=== PATIENT | female | born 1945 | race Caucasian/White ===

== ENCOUNTER 2017-09-03 11:12 | Inpatient (IN) | payer MEDICARE, OTHER, SELFPAY ==
[2017-09-03] VITALS (14 sets, daily range): BP systolic 112–158; BP diastolic 56–86; PULSE 78–101; RESP 15–27; TEMP 37.5–39.1; O2SAT 91–98; BMI 32.9; BMI 33.1
--- NOTE | 2017-09-03 11:40 | EKG12_ITS ---
Test Reason : SOB Blood Pressure : / mmHG Vent. Rate : 096 BPM Atrial Rate : 096 BPM P-R Int : 120 ms QRS Dur : 082 ms QT Int : 348 ms P-R-T Axes : 008 027 057 degrees QTc Int : 439 ms Normal sinus rhythm Normal ECG Confirmed by LATOYA MAC, IRIS ([id number]), publication editor GRISELDA SMALLS ([id number]) on 09/04/2017 9:52:58 AM Referred By: SOTERO Confirmed By:IRIS KLEIN MD
--- NOTE | 2017-09-03 11:42 | ED.VISSUMM ---
- ER Visit Summary Date of Service: 09/03/17 Chief Complaint: [Fever] History of Present Illness: The patient is a 71 F [who presents the emergency department with chronic cough. It has been worse over the last 2 weeks. Yesterday she developed fever. She is nauseated. She has body aches. She has a mild sore throat. Her cough is productive of brown sputum. 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.] Physical Examination: [] Temperature 102.5 heart rate 102 WN WD NAD PERRL EOMI Dry mucous membranes, TMs are clear, posterior oropharynx is normal NECK supple and nontender, no masses Irregular tachycardic rhythm with a midsystolic click no murmur rub or gallop, no peripheral edema, symmetric radial pulses End expiratory wheezing ABDOMEN is soft and nontender, normal bowel sounds, no distension, no rebound or guarding SKIN is warm and dry no rashes Alert and Oriented x3, CN II-XII in tact, no motor or sensory deficits, gait normal diffusely weak No lymphadenopathy Test Results: [] Emergency Department Course and Treatment: [Patient was given Tylenol Zofran. She is given fluids. EKG shows no acute ischemic changes. She does have a leukocytosis. Potassium was mildly depressed at 3.3. Chest x-ray shows left lower lobe pneumonia. This is community-acquired. Blood cultures were drawn. Lactic acid was normal. Patient was given ceftriaxone and azithromycin. She remained stable on 2 L nasal cannula with a pulse ox of 93-95% in the emergency department. She was 88-89% on room air. She was given albuterol for wheezing. She will be admitted to the hospital.] Treatment Plan: [] Disposition: [Admit] Impression: [1. Community-acquired pneumonia 2. Sepsis] This note was generated with [employer] software. It may contain incorrect words, spelling, and punctuation that were not noted in review of the chart prior to signing ED Disposition - Plan for ED Patient: Chief Complaint: Fever Referrals: Harley Cornejo MD [Primary Care Provider] -
[2017-09-03] MEDS: Albuterol 2.5 MG/3 ML VIAL.NEB. INHALATION ×2 (11:50→18:31)
[2017-09-03] MEDS: Ondansetron 4 MG/2 ML Vial IV (11:56)
[2017-09-03] MEDS: 0.9% Normal Saline 1,000 ML 150 ML IV (11:57)
[2017-09-03] MEDS: Acetaminophen 500 MG Tablet 1000 MG PO (11:57)
[2017-09-03 12:09] LABS: Absolute Lymphocyte Count 0.55 X10^3/ul (0.83-4.51); Absolute Neutrophil Count 11.6 X10^3/uL (2.0-7.7); Basophil# 0.02 X10^3/uL; Basophil% 0.2 % (0-1); Differential Indicated SCAN CRITERIA MET; Eosinophil# 0.01 X10^3/uL; Eosinophils% 0.1 % (0-5); Hematocrit 40.8 % (37-47); Hemoglobin 12.5 g/dl (12.0-15.0); Lymphocyte # 0.55 X10^3/ul (4.0); Lymphocyte % 4.3 % (19-41); Mean Corp Hgb Conc 30.6 g/gl (32-36); Mean Platelet Vol. 10.5 fl (6.2-12.0); Monocyte# 0.68 X10^3/uL; Monocyte% 5.3 % (0-10); Neutrophil # 11.55 X10^3/uL (2.7-7.7); Neutrophil % 89.9 % (47-70); POSITIVE COUNT NO; POSITIVE DIFFERENTIAL YES; POSITIVE MORPHOLOGY NO; Platelet Count 271 K/mm3 (150-450); RBC Distribution Width CV 14.7 % (11.6-14.6); RBC Distribution Width SD 45.6 fl (35.1-43.9); White Blood Count 12.8 K/mm3 (4.4-11.0)
[2017-09-03 12:17] LABS: International Normalized Ratio 2.7; Prothrombin Time (Protime)PT. 27.6 SECONDS (11.7-14.9)
[2017-09-03 12:19] LABS: Partial Thromboplast Time 65.1 Seconds (24.1-36.2)
[2017-09-03 12:25] LABS: ALB/GLOB Ratio 0.8 RATIO (0.9-2.4); AST(SGOT) 16 U/L (15-37); Alanine Aminotransfer ALT/SGPT 20 U/L (13-56); Albumin, Serum 3.1 g/dL (3.2-5.0); Alkaline Phosphatase 83 U/L (45-117); Anion Gap 7 (5-15); BUN 15 mg/dL (7-18); BUN/Creat Ratio 16.4 RATIO (10-20); Calcium,Total 8.8 mg/dL (8.5-10.1); Chloride 106 mmol/L (98-107); Creatinine, Serum 0.91 mg/dL (0.55-1.02); EST Glomerular Filtration Rate 64 mL/min (>60); Est Glom Filt Rate - Afr Amer 78 mL/min (>60); Globulin 3.8 g/dL (2.2-4.2); Glucose 106 mg/dL (74-106); Lactic Acid 1.1 mmol/L (0.4-2.0); Potassium 3.3 mmol/L (3.5-5.1); Protein, Total 6.9 g/dL (6.4-8.2); Sodium Level 141 mmol/L (136-145)
--- NOTE | 2017-09-03 12:46 | RAD_ITS ---
STUDY: X-RAY CHEST REASON FOR EXAM: Female, 71 years old. Cough and fever. TECHNIQUE: PA and lateral views of the chest. COMPARISON: Comparison is made with prior study dated January 11, 2018. FINDINGS: EKG electrodes are seen. Persistent elevation of the right hemidiaphragm. Increased markings are now seen in the left lower lobe suggestive of left lower lobe atelectasis and/or infiltrate. There is no demonstrated pleural abnormality. Sternal cerclage wires are present from a prior sternotomy. The patient is status post aortic valve replacement. Normal mediastinum and chica. Normal visualized pulmonary arteries. Normal visualized aortic arch and descending thoracic aorta. There is demineralization of the osseous structures. Dextroscoliosis. Normal visualized ribs, clavicles, and shoulders. There is no demonstrated abnormality of the visualized soft tissue structures of the upper abdomen. RAD/Chest PA and Lateral IMPRESSION: 5 suggestive of infiltrate in the left lower lobe. Electronically Signed: Jesse Abernathy MD at 13:26 EST Tel [phone], Service support ,
--- NOTE | 2017-09-03 14:34 | PCM.HP.STD ---
Problem List (1) History of back surgery Status: Chronic (2) S/P foot surgery Status: Chronic (3) S/P hysterectomy Status: Chronic (4) S/P sinus surgery Status: Chronic Comment: x4 (5) Aortic stenosis Status: Chronic Comment: Moderate to severe on echocardiogram June 2013, follows with Dr. Mckay (6) Asthma Status: Chronic Comment: PFTs in June 2013 show a mild degree of obstruction non-reactive to bronchodilators (7) CHF (congestive heart failure) Status: Chronic Comment: Diastolic with ejection fraction 65%, June 2013 Status post cardiac catheterization October 2012 showing angiographically normal coronary arteries (8) Chronic sinusitis Status: Chronic Comment: With history of Pseudomonas and MRSA infection; following up with Dr. 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 The patient is a 71 year old F who presents to the emergency room with productive cough of yellow/brown sputum, fever, weakness, shortness of breath, muscle aches. Patient states she has a chronic cough but her cough the past week or more has been different. She states her cough has increased in severity and is normally nonproductive. She follows with Dr. Gutierrez, manager diesel for mild asthma. She states she normally rarely uses her albuterol inhaler but has been using it approximately 3 times a day during the past week. She complains of associated nausea this morning. Otherwise denies GI/ complaints. Denies difficulty swallowing. Denies recent exposure to illness. She has a past medical history of hypertension, hyperlipidemia, chronic diastolic CHF, history of aortic valve replacement with mechanical valve, mild asthma, chronic sinusitis status post sinus surgery ?4, obesity, depression, GERD. Past Medical History Past Medical History (Chronic Problems): Chronic Problems S/P foot surgery (Chronic) S/P hysterectomy (Chronic) S/P sinus surgery (Chronic) x4 History of back surgery (Chronic) Hypertension (Chronic) Hyperlipidemia (Chronic) Depression (Chronic) Hiatal hernia (Chronic) Obesity (Chronic) CHF (congestive heart failure) (Chronic) Diastolic with ejection fraction 65%, June 2013 Status post cardiac catheterization October 2012 showing angiographically normal coronary arteries Aortic stenosis (Chronic) Moderate to severe on echocardiogram June 2013, follows with Dr. Mckay Asthma (Chronic) PFTs in June 2013 show a mild degree of obstruction non-reactive to bronchodilators Chronic sinusitis (Chronic) With history of Pseudomonas and MRSA infection; following up with Dr. 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) Allergies Sulfa (Sulfonamide Antibiotics) Allergy (Verified 09/03/17 11:15) Swelling adhesive Adverse Reaction (Verified 09/03/17 11:15) blisters BLISTERS codeine Adverse Reaction (Verified 09/03/17 11:15) Itching levofloxacin [From Levaquin] Adverse Reaction (Verified 09/03/17 11:15) pain in legs and swelling PAIN IN LEG AND SWELLING lisinopril Adverse Reaction (Verified 09/03/17 11:15) cough oxycodone [Oxycodone] Adverse Reaction (Verified 09/03/17 11:15) Itching oxycodone HCl [From Percocet] Adverse Reaction (Verified 09/03/17 11:15) Itching AND MAKES HEAD FEEL FUNNY Penicillins Adverse Reaction (Verified 09/03/17 11:15) heart palpitations HEART PALPITATIONS prochlorperazine edisylate [From Compazine] Adverse Reaction (Verified 09/03/17 11:15) Low blood pressure prochlorperazine maleate [From Compazine] Adverse Reaction (Verified 09/03/17 11:15) Low blood pressure tramadol HCl [From Ultram] Adverse Reaction (Verified 09/03/17 11:15) Itching Home Medications: Ambulatory Orders Medication Instructions Recorded Acetaminophen [Tylenol] 500 mg PO Q4H PRN PRN 01/14/15 Albuterol Inhaler [Ventolin Hfa] 2 puff INHALATION Q6H PRN PRN 01/14/15 Aspirin [Aspirin, Baby] 162 mg PO DAILY@0800 01/14/15 Ezetimibe [Zetia] 10 mg PO QHS 01/14/15 Lorazepam [Ativan] 0.5 mg PO BID 01/14/15 Pantoprazole Sodium [Protonix] 40 mg PO BID 01/14/15 Paroxetine HCl 20 mg PO BID 01/14/15 Pravastatin [Pravachol] 80 mg PO QHS 01/14/15 BuPROPion (XL) [Wellbutrin Xl] 150 mg PO DAILY 11/15/15 Warfarin [Coumadin] 5 mg PO DAILY 11/15/15 Azelastine HCl [Astelin] 1 spray NASAL BID 05/03/17 Cyclobenzaprine [Flexeril] 10 mg PO BID PRN PRN 05/03/17 Ferrous Sulfate [Iron] 325 mg PO DAILY 05/03/17 Fluticasone/Vilanterol [Breo 1 ea IH DAILY 05/03/17 Ellipta 200-25 Mcg INH] Furosemide [Lasix] 40 mg PO BID 05/03/17 Montelukast [Singulair] 10 mg PO DAILY 05/03/17 Potassium Chloride [K-Dur] 20 meq PO DAILY 05/03/17 Metoprolol(XL)Succ [Toprol Xl 50 mg PO QHS 09/03/17 (Beta Sandra)] Triamcinolone 0.1% Cream [Kenalog] 1 applic TOPICAL BID 09/03/17 Surgical History: hysterectomy, - - 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 Denies: Abdominal Pain, Constipation, Diarrhea, Vomiting Genitourinary: Denies: Dysuria Musculoskeletal: Denies: Joint Pain, Joint Tenderness Skin: Denies: Rash, Wounds Neurological: Denies: Numbness, Tingling, Focal weakness Psychiatric: Denies: Anxiety, Depression, Homicidal Ideations, Suicidal Ideations Hematologic/ Lymphatic: Denies: Easy Bruising, Easy Bleeding VTE Information - Inpt Only VTE Present on Admission: No VTE Mechan Device Prophylaxis: None VTE Pharm Prophylaxis ordered?: Yes - Physical Exam General: Alert, Oriented x3, Cooperative, No apparent distress HEENT: Atraumatic, PERRLA, EOMI, Normocephalic Oral: Dry Mucosa Neck: Supple, No JVD, Negative Carotid Bruits Lungs: Diminished, Rales - Left base, Wheezes Cardiovascular: Normal S1, Normal S2, Murmur, - - Irregular rhythm Abdomen: Bowel Sounds Present, Soft, Non Tender, Non-Distended, Obese Extremities: No clubbing, No cyanosis, No edema, Capillary Refill Less than 3 Seconds Skin: No rashes, No breakdown Musculoskeletal: No Tenderness to Palpation of Joints or Extremities Neurological: Cranial nerves II-XII grossly intact, Neuro grossly intact Psych/Mental Status: Normal Affect, Appropriate Vital Signs Temp Pulse Resp BP Pulse Ox 99.6 F H 82 18 112/86 H 94 09/03/17 13:45 09/03/17 14:19 09/03/17 14:19 09/03/17 14:19 09/03/17 14:19 Oxygen Flow Rate 2 Oxygen Delivery Method Nasal Cannula Weight: 81.647 kg Body Mass Index (BMI) 32.9 Finger Stick Blood Glucose 93 Microbiology Past 72 Hours 09/03/17 11:50 Influenza Types A,B Direct FA (SETH) - Final Mucosa - Nose Laboratory Tests Past 24 Hrs 09/03/17 09/03/17 09/03/17 11:50 11:50 11:50 WBC 12.8 H RBC 4.80 Hgb 12.5 Hct 40.8 MCV 85.0 MCH 26.0 L MCHC 30.6 L RDW 14.7 H RDW Differential 45.6 H Plt Count 271 MPV 10.5 Immature Gran % (Auto) 0.200 Neut % (Auto) 89.9 H Lymph % (Auto) 4.3 L [place] % (Auto) 5.3 Eos % (Auto) 0.1 Baso % (Auto) 0.2 Absolute Neuts (auto) 11.6 H Absolute Lymphs (auto) 0.55 L Total Counted Not Reportable Differential Comment COMMENT PT 27.6 H INR 2.7 APTT 65.1 H Sodium 141 Potassium 3.3 L Chloride 106 Carbon Dioxide 28.0 Anion Gap 7 BUN 15 Creatinine 0.91 Estim Creat Clear Calc 44.20 Est GFR (MDRD) Af Amer 78 Est GFR (MDRD) Non-Af 64 BUN/Creatinine Ratio 16.4 Glucose 106 Lactic Acid Calcium 8.8 Total Bilirubin 0.60 AST 16 ALT 20 Alkaline Phosphatase 83 Total Protein 6.9 Albumin 3.1 L Globulin 3.8 Albumin/Globulin Ratio 0.8 L 09/03/17 11:50 WBC RBC Hgb Hct MCV MCH MCHC RDW RDW Differential Plt Count MPV Immature Gran % (Auto) Neut % (Auto) Lymph % (Auto) [place] % (Auto) Eos % (Auto) Baso % (Auto) Absolute Neuts (auto) Absolute Lymphs (auto) Total Counted Differential Comment PT INR APTT Sodium Potassium Chloride Carbon Dioxide Anion Gap BUN Creatinine Estim Creat Clear Calc Est GFR (MDRD) Af Amer Est GFR (MDRD) Non-Af BUN/Creatinine Ratio Glucose Lactic Acid 1.1 Calcium Total Bilirubin AST ALT Alkaline Phosphatase Total Protein Albumin Globulin Albumin/Globulin Ratio Assessment/Plan 1. Acute community-acquired left lower lobe pneumonia with associated acute hypoxia-chest x-ray shows left lower lobe infiltrate. Patient presents with cough, fever, shortness of breath. Albuterol and DuoNeb aerosols. Continue IV azithromycin and IV Rocephin which was started in the ER. Mucinex twice daily. Tylenol as needed for fever. Encourage IS. Urine for strep and Legionella. Send sputum for culture. Blood cultures drawn in ER, pending. Negative for influenza. Continue supplemental oxygen to maintain O2 at or above 90%. Lactic acid 1.1. Does not meet sepsis criteria. Temp 102.3 on admission. Repeat chest x-ray in a.m. 2. Hypertension-stable, continue home regimen of Lasix and metoprolol. 3. Hyperlipidemia-continue Zetia, pravastatin. 4. Chronic diastolic CHF-aortic stenosis, history of aortic valve replacement with mechanical valve. Most recent echocardiogram 01/21/2015 showed an estimated ejection fraction of 60%, stable appearing mechanical aortic valve prosthesis, RVSP 29 mmHg, mild to moderate left ventricular hypertrophy. Continue home Lasix and coumadin regimen. 5. Mild asthma-no acute exacerbation. Continue albuterol aerosol PRN. 6. Chronic sinusitis-history of Pseudomonas and MRSA infection, previously followed with Dr. Lopez, [place]. S/P sinus surgery X4. 7. Obesity-encouraged diet and lifestyle modifications. 8. Depression-continue bupropion, fluoxetine. 9. History of rectal bleeding, anemia-EGD/colonoscopy 05/07/2017 showed hiatal hernia, cecal polyps, no source of anemia. Continue iron supplementation. 10. GERD- continue PPI. DVT prophylaxis-Coumadin, INR therapeutic. This patient was seen by CAHRLENE Bishop under the supervision of Dr. Mcdaniel.
[2017-09-03 16:44] LABS: Bacteria 0 SEEN /hpf (None Seen); Mucous, Urine 0 SEEN /hpf (<or=2+)
[2017-09-03 17:04] LABS: Color, Urine Yellow (Yellow); Glucose, Dipstick Normal (Normal); Ketone-Dipstick Negative (Negative); Leukocyte Esterase-Dipstick 500 /ul (Negative); Nitrite-Dipstick Negative (Negative); Occult Blood-Urine 150 /ul (Negative); Protein-Dipstick 15 mg/dl (Negative); Specific Gravity, Urine 1.015 (1.002-1.030); Urine Bilirubin Dipstick Negative (Negative); Urine Clarity Clear (Clear); Urine Urobilinogen Normal (Normal)
[2017-09-03 17:13] LABS: White Blood Cells 5-10 SEEN /hpf (0-5)
[2017-09-03 17:14] LABS: Red Blood Cells-Urine 0-5 SEEN /hpf (0-5); Squamous Epithelial Cells - UA 0 SEEN /hpf (5-10)
[2017-09-03] MEDS: Furosemide 40 MG Tablet PO (20:37)
[2017-09-03] MEDS: Pravastatin 80 MG Tablet PO (22:20)
[2017-09-03] MEDS: LORazepam 0.5 MG Tablet PO (22:20)
[2017-09-03] MEDS: Ezetimibe 10 MG Tablet PO (22:20)
[2017-09-03] MEDS: Pantoprazole Sodium 40 MG Tablet PO (22:20)
[2017-09-03] MEDS: Metoprolol(XL)Succ 50 MG Tablet PO (22:20)
[2017-09-04] VITALS (12 sets, daily range): BP systolic 107–118; BP diastolic 49–65; PULSE 75–89; RESP 18–20; TEMP 36.6–37.4; O2SAT 91–98
[2017-09-04] MEDS: Albuterol 2.5 MG/3 ML VIAL.NEB. INHALATION ×3 (00:51→13:23)
--- NOTE | 2017-09-04 05:59 | RAD_ITS ---
STUDY: X-RAY CHEST REASON FOR EXAM: Female, 71 years old. Shortness of breath. TECHNIQUE: PA and lateral chest. COMPARISON: September 03, 2015. CT chest May 15, 2016. FINDINGS: Airspace opacity left mid and left lower lung unchanged. Mildly elevated right hemidiaphragm. Normal size heart. Normal mediastinum and chica. Normal visualized pulmonary arteries. Atherosclerotic calcification of the aortic arch. Osseous structures unchanged. Sternal wires are present. There is no demonstrated abnormality of the visualized soft tissue structures of the upper abdomen. RAD/Chest PA and Lateral IMPRESSION: No change in left lower lobe pneumonia versus subsegmental atelectasis. Elevation of the right hemidiaphragm unchanged. Electronically Signed: Jean Castro MD at 6:21 EST , Service support ,
[2017-09-04] MEDS: Aspirin 81 MG TAB.CHEW 162 MG PO (08:55)
[2017-09-04] MEDS: Ferrous Sulfate 325 MG Tablet PO (08:55)
[2017-09-04] MEDS: 0.9% NaCl Peripheral Flush Adult/Peds IV (08:55)
[2017-09-04 08:56] LABS: Absolute Lymphocyte Count 0.81 X10^3/ul (0.83-4.51); Absolute Neutrophil Count 8.2 X10^3/uL (2.0-7.7); Basophil# 0.02 X10^3/uL; Basophil% 0.2 % (0-1); Eosinophil# 0.02 X10^3/uL; Eosinophils% 0.2 % (0-5); Hematocrit 37.9 % (37-47); Lymphocyte # 0.81 X10^3/ul (4.0); Lymphocyte % 8.6 % (19-41); Mean Corp Hgb Conc 31.7 g/gl (32-36); Mean Corpuscular Volume 85.2 fL (81-99); Mean Platelet Vol. 10.2 fl (6.2-12.0); Monocyte# 0.45 X10^3/uL; Monocyte% 4.8 % (0-10); Neutrophil # 8.16 X10^3/uL (2.7-7.7); Neutrophil % 86.1 % (47-70); Platelet Count 239 K/mm3 (150-450); RBC Distribution Width CV 14.8 % (11.6-14.6); RBC Distribution Width SD 45.4 fl (35.1-43.9); Red Blood Count 4.45 M/mm3 (4.2-5.4); White Blood Count 9.5 K/mm3 (4.4-11.0)
[2017-09-04] MEDS: Furosemide 40 MG Tablet PO ×2 (08:56→17:45)
[2017-09-04] MEDS: Pantoprazole Sodium 40 MG Tablet PO ×2 (08:58→22:25)
[2017-09-04] MEDS: Montelukast 10 MG Tablet PO (08:59)
[2017-09-04 09:03] LABS: POSITIVE COUNT NO; POSITIVE DIFFERENTIAL NO; POSITIVE MORPHOLOGY NO
[2017-09-04] MEDS: LORazepam 0.5 MG Tablet PO ×2 (09:04→22:25)
[2017-09-04 09:13] LABS: Anion Gap 7 (5-15); BUN 12 mg/dL (7-18); BUN/Creat Ratio 12.8 RATIO (10-20); Calcium,Total 8.6 mg/dL (8.5-10.1); Chloride 105 mmol/L (98-107); Creatinine, Serum 0.94 mg/dL (0.55-1.02); EST Glomerular Filtration Rate 62 mL/min (>60); Est Glom Filt Rate - Afr Amer 75 mL/min (>60); Estimated Creatinine Clearance 40.82 ml/min; Glucose 189 mg/dL (74-106); Potassium 3.1 mmol/L (3.5-5.1); Sodium Level 140 mmol/L (136-145)
--- NOTE | 2017-09-04 09:55 | PCM.PROGNOTE ---
<Luisa Rothman - Last Filed: 09/04/17 10:04> Subjective: Patient seen and examined. States shortness of breath is slightly improved. Continues to have productive cough with yellow/brown sputum. Complains of fever, chills overnight. Denies nausea, vomiting. Denies other complaints. - Physical Exam General: Alert, Oriented x3, Cooperative, No apparent distress HEENT: Atraumatic, PERRLA, EOMI, Normocephalic Neck: Supple, No JVD, Negative Carotid Bruits Lungs: Diminished, Rhonchi, Wheezes Cardiovascular: Normal S1, Normal S2, Murmur Abdomen: Bowel Sounds Present, Soft, Non Tender, Non-Distended, Obese Extremities: No clubbing, No cyanosis, No edema, Capillary Refill Less than 3 Seconds Skin: No rashes, No breakdown Musculoskeletal: No Tenderness to Palpation of Joints or Extremities Neurological: Cranial nerves II-XII grossly intact, Neuro grossly intact Psych/Mental Status: Normal Affect, Appropriate Vital Signs Temp Pulse Resp BP Pulse Ox 98.2 F 76 20 H 118/56 L 91 09/04/17 07:26 09/04/17 07:26 09/04/17 07:26 09/04/17 07:26 09/04/17 07:26 Oxygen Flow Rate 2 Oxygen Delivery Method Room Air Weight: 81.647 kg Body Mass Index (BMI) 33.1 Intake and Output for Last 24 Hours 09/02/17 09/03/17 09/04/17 23:59 23:59 23:59 Intake Total 840 / 840 250 / 250 Output Total 930 / 930 Balance -90 / -90 250 / 250 Microbiology Past 72 Hours 09/03/17 16:40 Legionella Antigen - Final Urine, Clean Catch 09/03/17 16:40 Streptococcus pneumoniae Antigen (M - Final Urine, Clean Catch Laboratory Tests Past 24 Hrs 09/03/17 09/04/17 09/04/17 16:40 08:45 08:45 WBC 9.5 RBC 4.45 Hgb 12.0 Hct 37.9 MCV 85.2 MCH 27.0 MCHC 31.7 L RDW 14.8 H RDW Differential 45.4 H Plt Count 239 MPV 10.2 Immature Gran % (Auto) 0.100 Neut % (Auto) 86.1 H Lymph % (Auto) 8.6 L [place] % (Auto) 4.8 Eos % (Auto) 0.2 Baso % (Auto) 0.2 Absolute Neuts (auto) 8.2 H Absolute Lymphs (auto) 0.81 L Total Counted Not Reportable Sodium 140 Potassium 3.1 L Chloride 105 Carbon Dioxide 28.0 Anion Gap 7 BUN 12 Creatinine 0.94 Estim Creat Clear Calc 40.82 Est GFR (MDRD) Af Amer 75 Est GFR (MDRD) Non-Af 62 BUN/Creatinine Ratio 12.8 Glucose 189 H Calcium 8.6 Urine Color Yellow Urine Clarity Clear Urine pH 6.0 Ur Specific [place] 1.015 Urine Protein 15 H Urine Glucose (UA) Normal Urine Ketones Negative Urine Occult Blood 150 H Urine Nitrite Negative Urine Bilirubin Negative Urine Urobilinogen Normal Ur Leukocyte Esterase 500 H Urine RBC 0-5 SEEN Urine WBC 5-10 SEEN Ur Squamous Epith Cells 0 SEEN Urine Bacteria 0 SEEN Urine Mucus 0 SEEN Assessment/Plan Patient is a 71-year-old female admitted 09/03/17 due to cough, fever. She has a past medical history of hypertension, hyperlipidemia, chronic diastolic CHF, history of aortic valve replacement with mechanical valve, mild asthma, chronic sinusitis status post sinus surgery ?4, obesity, depression, GERD. 1. Acute community-acquired left lower lobe pneumonia with associated acute hypoxia-chest x-ray shows left lower lobe infiltrate. Patient presents with cough, fever, shortness of breath. Albuterol and DuoNeb aerosols. Continue IV azithromycin and IV Rocephin. Mucinex twice daily. Tylenol as needed for fever. Encourage IS. Urine for strep and Legionella negative. Sputum culture pending. Blood cultures drawn pending. Negative for influenza. Continue supplemental oxygen to maintain O2 at or above 90%. Lactic acid 1.1. Does not meet sepsis criteria. Fever improved overnight. Repeat chest x-ray this morning shows no change in left lower lobe pneumonia versus subsegmental atelectasis. 2. Hypertension-stable, continue home regimen of Lasix and metoprolol. 3. Hyperlipidemia-continue Zetia, pravastatin. 4. Chronic diastolic CHF-aortic stenosis, history of aortic valve replacement with mechanical valve. Most recent echocardiogram 01/21/2015 showed an estimated ejection fraction of 60%, stable appearing mechanical aortic valve prosthesis, RVSP 29 mmHg, mild to moderate left ventricular hypertrophy. Continue home Lasix and coumadin regimen. 5. Mild asthma-no acute exacerbation. Continue albuterol aerosol PRN. 6. Chronic sinusitis-history of Pseudomonas and MRSA infection, previously followed with Dr. White, [place]. S/P sinus surgery X4. 7. Obesity-encouraged diet and lifestyle modifications. 8. Depression-continue bupropion, fluoxetine. 9. History of rectal bleeding, anemia-EGD/colonoscopy 05/07/2017 showed hiatal hernia, cecal polyps, no source of anemia. Continue iron supplementation. 10. GERD- continue PPI. 11. Acute cystitis-UA positive. Urine culture pending. Continue IV Rocephin. DVT prophylaxis-Coumadin, INR therapeutic. This patient was seen by CHARLENE Bishop under the supervision of Dr. Rowley. <Linda Rowley - Last Filed: 09/04/17 14:37> - Physical Exam Vital Signs Temp Pulse Resp BP Pulse Ox 97.9 F 81 18 110/60 98 09/04/17 14:26 09/04/17 14:26 09/04/17 14:26 09/04/17 14:26 09/04/17 14:26 Oxygen Flow Rate 1 Oxygen Delivery Method Nasal Cannula Weight: 81.6 kg Body Mass Index (BMI) 33.1 Intake and Output for Last 24 Hours 09/02/17 09/03/17 09/04/17 23:59 23:59 23:59 Intake Total 840 / 840 1310 / 1310 Output Total 930 / 930 700 / 700 Balance -90 / -90 610 / 610 Microbiology Past 72 Hours 09/03/17 16:40 Legionella Antigen - Final Urine, Clean Catch 09/03/17 16:40 Streptococcus pneumoniae Antigen (M - Final Urine, Clean Catch Laboratory Tests Past 24 Hrs 09/03/17 09/04/17 09/04/17 16:40 08:45 08:45 WBC 9.5 RBC 4.45 Hgb 12.0 Hct 37.9 MCV 85.2 MCH 27.0 MCHC 31.7 L RDW 14.8 H RDW Differential 45.4 H Plt Count 239 MPV 10.2 Immature Gran % (Auto) 0.100 Neut % (Auto) 86.1 H Lymph % (Auto) 8.6 L [place] % (Auto) 4.8 Eos % (Auto) 0.2 Baso % (Auto) 0.2 Absolute Neuts (auto) 8.2 H Absolute Lymphs (auto) 0.81 L Total Counted Not Reportable Sodium 140 Potassium 3.1 L Chloride 105 Carbon Dioxide 28.0 Anion Gap 7 BUN 12 Creatinine 0.94 Estim Creat Clear Calc 40.82 Est GFR (MDRD) Af Amer 75 Est GFR (MDRD) Non-Af 62 BUN/Creatinine Ratio 12.8 Glucose 189 H Calcium 8.6 Urine Color Yellow Urine Clarity Clear Urine pH 6.0 Ur Specific [place] 1.015 Urine Protein 15 H Urine Glucose (UA) Normal Urine Ketones Negative Urine Occult Blood 150 H Urine Nitrite Negative Urine Bilirubin Negative Urine Urobilinogen Normal Ur Leukocyte Esterase 500 H Urine RBC 0-5 SEEN Urine WBC 5-10 SEEN Ur Squamous Epith Cells 0 SEEN Urine Bacteria 0 SEEN Urine Mucus 0 SEEN Assessment/Plan Patient was seen and examined independently. Interval history and exam as above. Admitted with CAP. Complains of cough and wheezes. Not on oxygen at home. Vitals reviewed, on 2L oxygen. Clinical exam positive for decreased air entry and generalised wheezes+++ Will continue on breathing treatments and IV antibiotics. Code Visit Inpatient E&M: [id number] Subs Hosp L2
[2017-09-04] MEDS: Ceftriaxone 1 GM/50 ML BAG IV (11:00)
[2017-09-04] MEDS: guaiFENesin 1,200 MG Tablet 1200 MG PO ×2 (13:02→22:25)
--- NOTE | 2017-09-04 14:47 | CHAPLAIN ---
Type of Pastoral Visit _x__ Initial Visit ___ Follow-up Visit ___ On-call Visit ___ General Patient Visit ___ Spiritual Assessment ___ Family Conference ___ Bereavement ___ Rapid Response ___ Code Blue ___ Other (describe below) Pastoral Care Referral From _x__ Patient ___ Family ___ Nurse ___ Physician ___ Group Therapist ___ Spray Applicator ___ Other (describe below) Sacrament/Intervention ___ Active listening ___ Anointing ___ Amish ___ Bereavement ___ Communion ___ Bhavya exploration ___ ___ Life review _x__ Prayer ___ Reconciliation ___ Sacrament of Sick _x__ Supportive presence ___ Wedding ___ Other (describe below) Pastoral Comments
[2017-09-04] MEDS: Ipratropium/Albuterol Sulfate 3 ML AMPUL.NEB INHALATION (20:00)
[2017-09-04] MEDS: Acetaminophen 325 MG Tablet 650 MG PO (20:22)
[2017-09-04] MEDS: Metoprolol(XL)Succ 50 MG Tablet PO (22:25)
[2017-09-04] MEDS: Ezetimibe 10 MG Tablet PO (22:25)
[2017-09-04] MEDS: Pravastatin 80 MG Tablet PO (22:26)
[2017-09-05 04:24] VITALS: BP 143/87; PULSE 85; RESP 16; TEMP 37.1; O2SAT 98
[2017-09-05 06:37] LABS: Anion Gap 4 (5-15); BUN 14 mg/dL (7-18); BUN/Creat Ratio 17.7 RATIO (10-20); Calcium,Total 8.7 mg/dL (8.5-10.1); Chloride 105 mmol/L (98-107); Creatinine, Serum 0.79 mg/dL (0.55-1.02); EST Glomerular Filtration Rate 76 mL/min (>60); Est Glom Filt Rate - Afr Amer 92 mL/min (>60); Estimated Creatinine Clearance 40.22 ml/min; Glucose 93 mg/dL (74-106); Potassium 3.8 mmol/L (3.5-5.1); Sodium Level 141 mmol/L (136-145)
[2017-09-05 07:10] VITALS: PULSE 78; RESP 18; O2SAT 90
[2017-09-05] MEDS: Ipratropium/Albuterol Sulfate 3 ML AMPUL.NEB INHALATION ×2 (07:10→11:23)
[2017-09-05] MEDS: Aspirin 81 MG TAB.CHEW 162 MG PO (07:56)
[2017-09-05] MEDS: Ceftriaxone 1 GM/50 ML BAG IV (09:39)
[2017-09-05 09:41] VITALS: BP 132/69; PULSE 81; RESP 16; TEMP 36.7; O2SAT 95
[2017-09-05] MEDS: LORazepam 0.5 MG Tablet PO (09:46)
[2017-09-05] MEDS: Ferrous Sulfate 325 MG Tablet PO (09:46)
[2017-09-05] MEDS: Montelukast 10 MG Tablet PO (09:47)
[2017-09-05] MEDS: guaiFENesin 1,200 MG Tablet 1200 MG PO (09:47)
[2017-09-05] MEDS: Pantoprazole Sodium 40 MG Tablet PO (09:47)
[2017-09-05] MEDS: Furosemide 40 MG Tablet PO (09:47)
--- NOTE | 2017-09-05 09:54 | CASEMGMT ---
CARLOS SINGER initial assessment/chart review. LACE Strata: 3. Adm Dx: Patient presented to ED for fever and cough; + LLL CAP with associated acute hypoxia; + sputum cx for Pseudomonas putida and Staph aureus. PMHX: AVR on coumadin, asthma, depression, multiple surgeries, chronic sinusitis with hx of pseudomonas and MRSA, HLD, aortic stenosis, palpitations, CHF, and aneurysm. PCP: Dr. Cornejo Insurance: [facility] A/B and [facility] supplement Transition Planning: Patient is up independently in the room. Per documentation, patient lives with her spouse and her goal is to return home at discharge. CARLOS SINGER will need to continue to follow for possible home oxygen needs; currently on room air; not on home oxygen at baseline. CARLOS SINGER will remain available to assist should any additional transition planning needs arise. Written handoff report provided to Diamond Cain RN CM MS2. Care Coordination: personal secretary will arrange follow-up appnts per LACE Strata recommendations.
[2017-09-05 10:38] VITALS: O2SAT 92
--- NOTE | 2017-09-05 10:47 | DCINST_ITS ---
You will use the following diet at home:: Cardiac Discharge Activity: Return to Normal Activity Call your doctor if you observe: Fever of 101 or Higher, Shortness of breath, Fainting spells, Chest pain, Increased palpitations (irregular heartbeat) Allergies/Adverse Reactions: Allergies Sulfa (Sulfonamide Antibiotics) Allergy (Verified 09/03/17 11:15) Swelling celecoxib [From Celebrex] Adverse Reaction (Severe, Verified 09/04/17 09:31) Unknown adhesive Adverse Reaction (Verified 09/03/17 11:15) blisters BLISTERS codeine Adverse Reaction (Verified 09/03/17 11:15) Itching levofloxacin [From Levaquin] Adverse Reaction (Verified 09/03/17 11:15) pain in legs and swelling PAIN IN LEG AND SWELLING lisinopril Adverse Reaction (Verified 09/03/17 11:15) cough oxycodone [Oxycodone] Adverse Reaction (Verified 09/03/17 11:15) Itching oxycodone HCl [From Percocet] Adverse Reaction (Verified 09/03/17 11:15) Itching AND MAKES HEAD FEEL FUNNY Penicillins Adverse Reaction (Verified 09/03/17 11:15) heart palpitations HEART PALPITATIONS prochlorperazine edisylate [From Compazine] Adverse Reaction (Verified 09/03/17 11:15) Low blood pressure prochlorperazine maleate [From Compazine] Adverse Reaction (Verified 09/03/17 11 :15) Low blood pressure tramadol HCl [From Ultram] Adverse Reaction (Verified 09/03/17 11:15) Itching Medications to take at Discharge Acetaminophen [Tylenol] 500 mg PO Q4H PRN PRN 01/14/15 Albuterol Inhaler [Ventolin Hfa] 2 puff INHALATION Q6H PRN PRN 01/14/15 Ezetimibe [Zetia] 10 mg PO QHS 01/14/15 Pantoprazole Sodium [Protonix] 40 mg PO BID 01/14/15 Paroxetine HCl 20 mg PO BID 01/14/15 Pravastatin [Pravachol] 80 mg PO QHS 01/14/15 BuPROPion (XL) [Wellbutrin Xl] 150 mg PO DAILY 11/15/15 Warfarin [Coumadin] 5 mg PO DAILY 11/15/15 Azelastine HCl [Astelin] 1 spray NASAL BID 05/03/17 Cyclobenzaprine [Flexeril] 10 mg PO BID PRN PRN 05/03/17 Ferrous Sulfate [Iron] 325 mg PO DAILY 05/03/17 Fluticasone/Vilanterol [Breo Ellipta 200-25 Mcg INH] 1 ea IH DAILY 05/03/17 Furosemide [Lasix] 40 mg PO BID 05/03/17 Montelukast [Singulair] 10 mg PO DAILY 05/03/17 Potassium Chloride [K-Dur] 20 meq PO DAILY 05/03/17 Triamcinolone 0.1% Cream [Kenalog] 1 applic TOPICAL BID 09/03/17 aspirin 81 mg chewable tablet 162 mg PO QDAY tab 09/04/17 lorazepam 0.5 mg tablet 0.5 mg PO BID PRN 09/04/17 metoprolol succinate ER 50 mg tablet,extended release 24 hr 50 mg PO QDAY tab 09/04/17 Levofloxacin [Levaquin] 750 mg PO DAILY #5 tab 09/05/17 The following prescriptions were given: Levofloxacin [Levaquin] 750 mg PO DAILY #5 tab Primary Care Physician: Harley Cornejo MD [Primary Care Provider] - Please follow up with your Primary Care Physician in: 1 Week Proposed Discharge Date: 09/05/17
--- NOTE | 2017-09-05 10:49 | PCM.DC.SUM ---
Discharge Date and Diagnosis Date of Admission: 09/03/17 Date of Discharge: 09/05/17 - Primary Discharge Diagnosis 1. Acute community-acquired left lower lobe pneumonia with associated sputum culture positive for Pseudomonas putida, GNR possible haemophilus, staphyloccus aureus 2. Acute hypoxia secondary to #1 2. Acute cystitis-ruled out. Initial UA positive, culture unremarkable. Patient asymptomatic. 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) Nonspecific chest pain (Chronic) Aneurysm, thoracic aortic (Chronic) Nonrheumatic aortic valve regurgitation (Chronic) Shortness of breath (Chronic) Fatigue (Chronic) S/P foot surgery (Chronic) S/P hysterectomy (Chronic) S/P sinus surgery (Chronic) x4 History of back surgery (Chronic) Hypertension (Chronic) Hyperlipidemia (Chronic) Depression (Chronic) Hiatal hernia (Chronic) Obesity (Chronic) CHF (congestive heart failure) (Chronic) Diastolic with ejection fraction 65%, June 2013 Status post cardiac catheterization October 2012 showing angiographically normal coronary arteries Aortic stenosis (Chronic) Moderate to severe on echocardiogram June 2013, follows with Dr. Mckay Asthma (Chronic) PFTs in June 2013 show a mild degree of obstruction non-reactive to bronchodilators Chronic sinusitis (Chronic) With history of Pseudomonas and MRSA infection; following up with Dr. 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 Elevation of the right hemidiaphragm unchanged. Electronically Signed: Jean Castro MD at 6:21 EST , Service support , Operations: None Procedures: None Summary of Care Provided: Patient is a 71-year-old female admitted 09/03/17 due to cough, fever. She has a past medical history of hypertension, hyperlipidemia, chronic diastolic CHF, history of aortic valve replacement with mechanical valve, mild asthma, chronic sinusitis status post sinus surgery ?4, obesity, depression, GERD. 1. Acute community-acquired left lower lobe pneumonia with associated sputum culture positive for Pseudomonas putida, GNR possible haemophilus, staphyloccus aureus-chest x-ray on admission showed a left lower lobe infiltrate. Patient presented with cough, fever, shortness of breath. She received albuterol DuoNeb aerosols. Patient also received IV azithromycin and IV Rocephin. She will be discharged on Levaquin 750 mg ?5 days. No further fever. Urine negative for strep and Legionella. Blood cultures pending. Patient did not meet sepsis criteria. Walking oxygen test to be completed prior to discharge. Patient is currently stable on room air. Influenza negative. 2. Hypertension-stable, continue home regimen of Lasix and metoprolol. 3. Hyperlipidemia-continue Zetia, pravastatin. 4. Chronic diastolic CHF-aortic stenosis, history of aortic valve replacement with mechanical valve. Most recent echocardiogram 01/21/2015 showed an estimated ejection fraction of 60%, stable appearing mechanical aortic valve prosthesis, RVSP 29 mmHg, mild to moderate left ventricular hypertrophy. Continue home Lasix and coumadin regimen. 5. Mild asthma-no acute exacerbation. Continue albuterol aerosol PRN. 6. Chronic sinusitis-history of Pseudomonas and MRSA infection, previously followed with Dr. Lopez, [place]. S/P sinus surgery X4. 7. Obesity-encouraged diet and lifestyle modifications. 8. Depression-continue bupropion, fluoxetine. 9. History of rectal bleeding, anemia-EGD/colonoscopy 05/07/2017 showed hiatal hernia, cecal polyps, no source of anemia. Continue iron supplementation. 10. GERD- continue PPI. 11. Acute cystitis-ruled out. UA positive for leukocytes and nitrites. Urine culture unremarkable. General: Alert, Oriented x3, Cooperative, No apparent distress HEENT: Atraumatic, PERRLA, EOMI, Normocephalic Neck: Supple, No JVD, Negative Carotid Bruits Lungs: Diminished, Rhonchi, Wheezes Cardiovascular: Normal S1, Normal S2, Murmur Abdomen: Bowel Sounds Present, Soft, Non Tender, Non-Distended, Obese Extremities: No clubbing, No cyanosis, No edema, Capillary Refill Less than 3 Seconds Skin: No rashes, No breakdown Musculoskeletal: No Tenderness to Palpation of Joints or Extremities Neurological: Cranial nerves II-XII grossly intact, Neuro grossly intact Psych/Mental Status: Normal Affect, Appropriate Patient seen and examined prior to discharge. Physical assessment as noted above. Patient is stable on room air. Shortness of breath and cough significantly improved. Patient stable for discharge home, further follow-up with primary care physician. This patient was seen by CHARLENE Bishop under the supervision of Dr. Rowley. Discharge Diet: Low fat/ Low Cholesterol Discharge Activity: Return to Normal Activity Call your doctor if you observe: Fever of 101 or Higher, Shortness of breath, Fainting spells, Chest pain, Increased palpitations (irregular heartbeat) Home Medications: Medications to take at Discharge Acetaminophen [Tylenol] 500 mg PO Q4H PRN PRN 01/14/15 Albuterol Inhaler [Ventolin Hfa] 2 puff INHALATION Q6H PRN PRN 01/14/15 Ezetimibe [Zetia] 10 mg PO QHS 01/14/15 Pantoprazole Sodium [Protonix] 40 mg PO BID 01/14/15 Paroxetine HCl 20 mg PO BID 01/14/15 Pravastatin [Pravachol] 80 mg PO QHS 01/14/15 BuPROPion (XL) [Wellbutrin Xl] 150 mg PO DAILY 11/15/15 Warfarin [Coumadin] 5 mg PO DAILY 11/15/15 Azelastine HCl [Astelin] 1 spray NASAL BID 05/03/17 Cyclobenzaprine [Flexeril] 10 mg PO BID PRN PRN 05/03/17 Ferrous Sulfate [Iron] 325 mg PO DAILY 05/03/17 Fluticasone/Vilanterol [Breo Ellipta 200-25 Mcg INH] 1 ea IH DAILY 05/03/17 Furosemide [Lasix] 40 mg PO BID 05/03/17 Montelukast [Singulair] 10 mg PO DAILY 05/03/17 Potassium Chloride [K-Dur] 20 meq PO DAILY 05/03/17 Triamcinolone 0.1% Cream [Kenalog] 1 applic TOPICAL BID 09/03/17 aspirin 81 mg chewable tablet 162 mg PO QDAY tab 09/04/17 lorazepam 0.5 mg tablet 0.5 mg PO BID PRN 09/04/17 metoprolol succinate ER 50 mg tablet,extended release 24 hr 50 mg PO QDAY tab 09/04/17 Levofloxacin [Levaquin] 750 mg PO DAILY #5 tab 09/05/17 Following Prescrptions Were Given to Patient: Levofloxacin [Levaquin] 750 mg PO DAILY #5 tab Primary Care Physician: Harley Cornejo MD [Primary Care Provider] - Please follow up with your Primary Care Physician in: 1 Week Disposition: Home Minutes spent on discharge:: 35 Patient Condition:: Stable Meaningful Use Info Meaningful Use Diagnoses (Choose all that apply): None applicable
--- NOTE | 2017-09-05 10:58 | DS.PCM_ITS ---
Discharge Date and Diagnosis Date of Admission: 09/03/17 Date of Discharge: 09/05/17 - Primary Discharge Diagnosis 1. Acute community-acquired left lower lobe pneumonia with associated sputum culture positive for Pseudomonas putida, GNR possible haemophilus, staphyloccus aureus 2. Acute hypoxia secondary to #1 2. Acute cystitis-ruled out. Initial UA positive, culture unremarkable. Patient asymptomatic. 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) Nonspecific chest pain (Chronic) Aneurysm, thoracic aortic (Chronic) Nonrheumatic aortic valve regurgitation (Chronic) Shortness of breath (Chronic) Fatigue (Chronic) S/P foot surgery (Chronic) S/P hysterectomy (Chronic) S/P sinus surgery (Chronic) x4 History of back surgery (Chronic) Hypertension (Chronic) Hyperlipidemia (Chronic) Depression (Chronic) Hiatal hernia (Chronic) Obesity (Chronic) CHF (congestive heart failure) (Chronic) Diastolic with ejection fraction 65%, June 2013 Status post cardiac catheterization October 2012 showing angiographically normal coronary arteries Aortic stenosis (Chronic) Moderate to severe on echocardiogram June 2013, follows with Dr. Mckay Asthma (Chronic) PFTs in June 2013 show a mild degree of obstruction non-reactive to bronchodilators Chronic sinusitis (Chronic) With history of Pseudomonas and MRSA infection; following up with Dr. 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 Elevation of the right hemidiaphragm unchanged. Electronically Signed: Jean Castro MD at 6:21 EST , Service support , Operations: None Procedures: None Summary of Care Provided: Patient is a 71-year-old female admitted 09/03/17 due to cough, fever. She has a past medical history of hypertension, hyperlipidemia, chronic diastolic CHF, history of aortic valve replacement with mechanical valve, mild asthma, chronic sinusitis status post sinus surgery ?4, obesity, depression, GERD. 1. Acute community-acquired left lower lobe pneumonia with associated sputum culture positive for Pseudomonas putida, GNR possible haemophilus, staphyloccus aureus-chest x-ray on admission showed a left lower lobe infiltrate. Patient presented with cough, fever, shortness of breath. She received albuterol DuoNeb aerosols. Patient also received IV azithromycin and IV Rocephin. She will be discharged on Levaquin 750 mg ?5 days. No further fever. Urine negative for strep and Legionella. Blood cultures pending. Patient did not meet sepsis criteria. Walking oxygen test to be completed prior to discharge. Patient is currently stable on room air. Influenza negative. 2. Hypertension-stable, continue home regimen of Lasix and metoprolol. 3. Hyperlipidemia-continue Zetia, pravastatin. 4. Chronic diastolic CHF-aortic stenosis, history of aortic valve replacement with mechanical valve. Most recent echocardiogram 01/21/2015 showed an estimated ejection fraction of 60%, stable appearing mechanical aortic valve prosthesis, RVSP 29 mmHg, mild to moderate left ventricular hypertrophy. Continue home Lasix and coumadin regimen. 5. Mild asthma-no acute exacerbation. Continue albuterol aerosol PRN. 6. Chronic sinusitis-history of Pseudomonas and MRSA infection, previously followed with Dr. Lopez, [place]. S/P sinus surgery X4. 7. Obesity-encouraged diet and lifestyle modifications. 8. Depression-continue bupropion, fluoxetine. 9. History of rectal bleeding, anemia-EGD/colonoscopy 05/07/2017 showed hiatal hernia, cecal polyps, no source of anemia. Continue iron supplementation. 10. GERD- continue PPI. 11. Acute cystitis-ruled out. UA positive for leukocytes and nitrites. Urine culture unremarkable. General: Alert, Oriented x3, Cooperative, No apparent distress HEENT: Atraumatic, PERRLA, EOMI, Normocephalic Neck: Supple, No JVD, Negative Carotid Bruits Lungs: Diminished, Rhonchi, Wheezes Cardiovascular: Normal S1, Normal S2, Murmur Abdomen: Bowel Sounds Present, Soft, Non Tender, Non-Distended, Obese Extremities: No clubbing, No cyanosis, No edema, Capillary Refill Less than 3 Seconds Skin: No rashes, No breakdown Musculoskeletal: No Tenderness to Palpation of Joints or Extremities Neurological: Cranial nerves II-XII grossly intact, Neuro grossly intact Psych/Mental Status: Normal Affect, Appropriate Patient seen and examined prior to discharge. Physical assessment as noted above. Patient is stable on room air. Shortness of breath and cough significantly improved. Patient stable for discharge home, further follow-up with primary care physician. This patient was seen by CHARLENE Bishop under the supervision of Dr. Rowley. Discharge Diet: Low fat/ Low Cholesterol Discharge Activity: Return to Normal Activity Call your doctor if you observe: Fever of 101 or Higher, Shortness of breath, Fainting spells, Chest pain, Increased palpitations (irregular heartbeat) Home Medications: Medications to take at Discharge Acetaminophen [Tylenol] 500 mg PO Q4H PRN PRN 01/14/15 Albuterol Inhaler [Ventolin Hfa] 2 puff INHALATION Q6H PRN PRN 01/14/15 Ezetimibe [Zetia] 10 mg PO QHS 01/14/15 Pantoprazole Sodium [Protonix] 40 mg PO BID 01/14/15 Paroxetine HCl 20 mg PO BID 01/14/15 Pravastatin [Pravachol] 80 mg PO QHS 01/14/15 BuPROPion (XL) [Wellbutrin Xl] 150 mg PO DAILY 11/15/15 Warfarin [Coumadin] 5 mg PO DAILY 11/15/15 Azelastine HCl [Astelin] 1 spray NASAL BID 05/03/17 Cyclobenzaprine [Flexeril] 10 mg PO BID PRN PRN 05/03/17 Ferrous Sulfate [Iron] 325 mg PO DAILY 05/03/17 Fluticasone/Vilanterol [Breo Ellipta 200-25 Mcg INH] 1 ea IH DAILY 05/03/17 Furosemide [Lasix] 40 mg PO BID 05/03/17 Montelukast [Singulair] 10 mg PO DAILY 05/03/17 Potassium Chloride [K-Dur] 20 meq PO DAILY 05/03/17 Triamcinolone 0.1% Cream [Kenalog] 1 applic TOPICAL BID 09/03/17 aspirin 81 mg chewable tablet 162 mg PO QDAY tab 09/04/17 lorazepam 0.5 mg tablet 0.5 mg PO BID PRN 09/04/17 metoprolol succinate ER 50 mg tablet,extended release 24 hr 50 mg PO QDAY tab 09/04/17 Levofloxacin [Levaquin] 750 mg PO DAILY #5 tab 09/05/17 Following Prescrptions Were Given to Patient: Levofloxacin [Levaquin] 750 mg PO DAILY #5 tab Primary Care Physician: Harley Cornejo MD [Primary Care Provider] - Please follow up with your Primary Care Physician in: 1 Week Disposition: Home Minutes spent on discharge:: 35 Patient Condition:: Stable Meaningful Use Info Meaningful Use Diagnoses (Choose all that apply): None applicable
[2017-09-05 11:23] VITALS: PULSE 80; RESP 18
[2017-09-05 13:21] VITALS: BP 116/54; PULSE 89; RESP 16; TEMP 36.8; O2SAT 95
== END 2017-09-05 14:07 | disposition home or self-care (01) | DRG 194 ==
LOC: ED 12:09 → MS2 15:36
PROVIDERS: Admitting Provider Internal Medicine; Emergency Provider Emergency Medicine; Family Provider Family Medicine; PCP Family Medicine; Visit Provider Internal Medicine
DX: J18.9 Pneumonia, unspecified organism (principal); I50.32 Chronic diastolic (congestive) heart failure; I11.0 Hypertensive heart disease with heart failure; B96.5 Pseudomonas (aeruginosa) (mallei) (pseudomallei) as the cause of diseases classified elsewhere; I35.0 Nonrheumatic aortic (valve) stenosis; E78.5 Hyperlipidemia, unspecified; I25.10 Atherosclerotic heart disease of native coronary artery without angina pectoris; J45.909 Unspecified asthma, uncomplicated; J32.9 Chronic sinusitis, unspecified; E66.9 Obesity, unspecified; F32.9 Major depressive disorder, single episode, unspecified; K21.9 Gastro-esophageal reflux disease without esophagitis; R09.02 Hypoxemia; Z86.14 Personal history of Methicillin resistant Staphylococcus aureus infection; Z68.33 Body mass index [BMI] 33.0-33.9, adult; Z95.2 Presence of prosthetic heart valve; Z79.01 Long term (current) use of anticoagulants
CPT/HCPCS: 36415; 71046; 80048; 80053; 81001; 83605; 85025; 85610; 85730; 87040; 87070; 87077; 87086; 87088; 87186; 87205; 87449; 87804; 93005; 94640; 99285; J7050; A4216; J2405

== ENCOUNTER 2017-12-03 10:44 | Inpatient (IN) | payer MEDICARE, OTHER, SELFPAY ==
[2017-12-03] VITALS (11 sets, daily range): BP systolic 116–139; BP diastolic 48–77; PULSE 82–108; RESP 16–24; TEMP 36.6–38; O2SAT 88–98; BMI 32.1; BMI 34.1
--- NOTE | 2017-12-03 11:12 | RAD_ITS ---
STUDY: X-RAY CHEST REASON FOR EXAM: Female, 71 years old. Cough. TECHNIQUE: Frontal and lateral views of the chest. COMPARISON: September 04, 2017 FINDINGS: The patchy linear opacity at the left base has decreased in density. This may represent atelectasis or scarring. There is a new patchy opacity in the right lower lobe peripherally which may represent an early/developing pneumonia. There is right middle and lower lobe atelectasis medially with elevation of the right hemidiaphragm, unchanged. There is no demonstrated pleural abnormality. There is stable cardiomegaly with sternotomy wires. Normal mediastinum and chica. Normal visualized pulmonary arteries. There is aortic tortuosity with calcification unchanged. Normal visualized thoracic spine. Normal visualized ribs, clavicles, and shoulders. There is no demonstrated abnormality of the visualized soft tissue structures of the upper abdomen. RAD/Chest PA and Lateral IMPRESSION: Stable cardiomegaly. Decreased density in the left base. Patchy opacity at the right lower lobe which may represent an early/developing pneumonia. Right middle and lower lobe atelectasis with elevation of the right hemidiaphragm. Electronically Signed: Celio Simmons MD at 12:36 EDT , Service support ,
--- NOTE | 2017-12-03 11:13 | EKG12_ITS ---
Test Reason : GEN ILLNESS Blood Pressure : / mmHG Vent. Rate : 108 BPM Atrial Rate : 108 BPM P-R Int : 160 ms QRS Dur : 084 ms QT Int : 338 ms P-R-T Axes : 000 026 076 degrees QTc Int : 452 ms Sinus tachycardia Otherwise normal ECG Confirmed by LATOYA MAC, IRIS ([id number]), primer expeditor and drier GRISELDA SMALLS ([id number]) on 12/05/2017 2:10:23 PM Referred By: EVELINA Confirmed By:IRIS KLEIN MD
[2017-12-03] MEDS: Acetaminophen 500 MG Tablet 1000 MG PO (11:36)
[2017-12-03 11:45] LABS: Absolute Lymphocyte Count 0.51 X10^3/ul (0.83-4.51); Absolute Neutrophil Count 13.6 X10^3/uL (2.0-7.7); Basophil# 0.02 X10^3/uL; Basophil% 0.1 % (0-1); Eosinophil# 0.02 X10^3/uL; Eosinophils% 0.1 % (0-5); Hematocrit 43.7 % (37-47); Hemoglobin 13.6 g/dl (12.0-15.0); Lymphocyte # 0.51 X10^3/ul (4.0); Lymphocyte % 3.5 % (19-41); Mean Corp Hgb Conc 31.1 g/gl (32-36); Mean Corpuscular Hgb 26.3 pg (27.0-32.0); Mean Corpuscular Volume 84.4 fL (81-99); Mean Platelet Vol. 9.7 fl (6.2-12.0); Monocyte# 0.44 X10^3/uL; Neutrophil # 13.64 X10^3/uL (2.7-7.7); Platelet Count 254 K/mm3 (150-450); RBC Distribution Width CV 14.5 % (11.6-14.6); RBC Distribution Width SD 45.1 fl (35.1-43.9); Red Blood Count 5.18 M/mm3 (4.2-5.4); White Blood Count 14.7 K/mm3 (4.4-11.0)
[2017-12-03 11:47] LABS: Differential Indicated SCAN CRITERIA MET; POSITIVE COUNT NO; POSITIVE DIFFERENTIAL YES; POSITIVE MORPHOLOGY NO
[2017-12-03 11:57] LABS: ALB/GLOB Ratio 0.9 RATIO (0.9-2.4); AST(SGOT) 15 U/L (15-37); Alanine Aminotransfer ALT/SGPT 15 U/L (13-56); Albumin, Serum 3.4 g/dL (3.2-5.0); Alkaline Phosphatase 91 U/L (45-117); Anion Gap 8 (5-15); BUN 17 mg/dL (7-18); BUN/Creat Ratio 15.9 RATIO (10-20); Calcium,Total 9.1 mg/dL (8.5-10.1); Chloride 104 mmol/L (98-107); Creatinine, Serum 1.07 mg/dL (0.55-1.02); EST Glomerular Filtration Rate 53 mL/min (>60); Est Glom Filt Rate - Afr Amer 65 mL/min (>60); Estimated Creatinine Clearance 35.86 ml/min; Globulin 3.6 g/dL (2.2-4.2); Glucose 80 mg/dL (74-106); Potassium 3.1 mmol/L (3.5-5.1); Sodium Level 142 mmol/L (136-145)
[2017-12-03 11:59] LABS: Prothrombin Time (Protime)PT. 31.4 SECONDS (11.7-14.9)
[2017-12-03 12:00] LABS: Partial Thromboplast Time 33.8 Seconds (24.1-36.2)
--- NOTE | 2017-12-03 12:02 | NURSING ---
NO LW OR POA
[2017-12-03 12:05] LABS: Lactic Acid 2.8 mmol/L (0.4-2.0)
[2017-12-03 12:23] LABS: Differential Comment SCANNED
--- NOTE | 2017-12-03 12:29 | ED.VISSUMM ---
- ER Visit Summary Date of Service: 12/03/17 Chief Complaint: Cough and fever History of Present Illness: The patient is a 71 F presenting for evaluation secondary to cough and fever. Patient has an underlying history of asthma. Patient states over the course last 4 days she has been having a progressive onset of illness. Patient states it has been associated with fevers as high as 103. Patient's primary care physician started on prednisone last week, this does not seem to be alleviating her symptoms. She has had cough nausea vomiting and some mild confusion associated with this. Patient was admitted in August for similar presentation that was pneumonia. Review of systems otherwise negative. Physical Examination: Vital signs notable temperature 100.3, heart rate of 108, 93% on room air respiratory rate 24. Well-nourished female no acute distress. Moist mucous membrane. No JVD. Heart was tachycardic and regular with 2 out of 6 systolic murmur. Lungs sounds showed evidence of rales on the right with rhonchi in the left no respiratory distress was noted. Remainder the physical otherwise unremarkable. Test Results: CBC shows leukocytosis of 14, chemistry shows mild hypokalemia 3.1, INR 3.0, lactic acid 2.8, EKG shows a sinus rate of [address] segments and normal T waves. Chest x-ray by my personal review shows a right-sided developing infiltrate. Emergency Department Course and Treatment: Patient presented with symptomatology of pneumonia. Workup demonstrated infiltrate and an elevated lactic acid. Patient was treated with a 30 cc/kg fluid bolus, vancomycin and aztreonam as the patient has been admitted within the last 3 months. Patient will be admitted to the hospitalist for treatment of HCAP And severe sepsis. Disposition: Admission Impression: 1. Healthcare associated pneumonia 2. Severe sepsis This note was generated with Open [employer] software. It may contain incorrect words, spelling, and punctuation that were not noted in review of the chart prior to signing ED Disposition - Plan for ED Patient: Chief Complaint: General Illness Referrals: Harley Cornejo MD [Primary Care Provider] -
--- NOTE | 2017-12-03 12:32 | ED.DCSUM_ITS ---
- ER Visit Summary Date of Service: 12/03/17 Chief Complaint: Cough and fever History of Present Illness: The patient is a 71 F presenting for evaluation secondary to cough and fever. Patient has an underlying history of asthma. Patient states over the course last 4 days she has been having a progressive onset of illness. Patient states it has been associated with fevers as high as 103. Patient's primary care physician started on prednisone last week, this does not seem to be alleviating her symptoms. She has had cough nausea vomiting and some mild confusion associated with this. Patient was admitted in August for similar presentation that was pneumonia. Review of systems otherwise negative. Physical Examination: Vital signs notable temperature 100.3, heart rate of 108, 93% on room air respiratory rate 24. Well-nourished female no acute distress. Moist mucous membrane. No JVD. Heart was tachycardic and regular with 2 out of 6 systolic murmur. Lungs sounds showed evidence of rales on the right with rhonchi in the left no respiratory distress was noted. Remainder the physical otherwise unremarkable. Test Results: CBC shows leukocytosis of 14, chemistry shows mild hypokalemia 3.1 , INR 3.0, lactic acid 2.8, EKG shows a sinus rate of [address] segments and normal T waves. Chest x-ray by my personal review shows a right- sided developing infiltrate. Emergency Department Course and Treatment: Patient presented with symptomatology of pneumonia. Workup demonstrated infiltrate and an elevated lactic acid. Patient was treated with a 30 cc/kg fluid bolus, vancomycin and aztreonam as the patient has been admitted within the last 3 months. Patient will be admitted to the hospitalist for treatment of HCAP And severe sepsis. Disposition: Admission Impression: 1. Healthcare associated pneumonia 2. Severe sepsis This note was generated with [employer] software. It may contain incorrect words, spelling, and punctuation that were not noted in review of the chart prior to signing ED Disposition - Plan for ED Patient: Chief Complaint: General Illness Referrals: Harley Cornejo MD [Primary Care Provider] -
--- NOTE | 2017-12-03 13:20 | NURSING ---
PNEUMONIA, HX OF MECHANICAL AV REPLACEMENT, CHRONIC ANTICOAGULATION, SEPSIS SEMENTI
[2017-12-03] MEDS: 0.9% Normal Saline 1,000 ML 75 ML IV (14:09)
--- NOTE | 2017-12-03 15:31 | CT_ITS ---
STUDY: CT CHEST WITHOUT CONTRAST REASON FOR EXAM: Female, 71 years old. Pneumonia RADIATION DOSAGE (If Supplied By Facility): CTDIvol = ( 17.42 ) mGy, DLP = ( 544.10 ) mGycm TECHNIQUE: Transaxial imaging was performed without the administration of intravenous contrast material. Individualized dose optimization techniques were used for this CT. COMPARISON: May 15, 2016. FINDINGS: Slightly elevated right hemidiaphragm. Patchy infiltrates are noted of the right upper and middle lobes. Infiltrates and consolidations are noted in the right lower lobe. There is left lower lobe consolidation/atelectasis. Trace effusion at the lung bases. Normal heart and pericardium. Mild adenopathy of the mediastinum. Normal hilar regions. Normal unenhanced pulmonary arteries. Normal aorta arch and descending thoracic aorta. Dilated ascending aorta measuring 4.5 cm. Normal osseous structures. Fatty ventral hernia of the upper anterior abdominal wall. Hiatal hernia. CT/Chest without Contrast IMPRESSION: Patchy infiltrates of the right lung. Right lower lobe infiltrate/consolidation. Left lower lobe consolidation/atelectasis. Trace effusion bilaterally. Mild mediastinal adenopathy. Dilated ascending aorta. Fatty ventral hernia of the upper abdominal wall. Hiatal hernia. Electronically Signed: Jah Reese DO at 23:39 EDT Tel [phone], Service support ,
[2017-12-03 15:33] LABS: Reflex Lactate? Y
[2017-12-03] MEDS: buPROPion (XL) 150 MG TABLET.XL PO (15:37)
[2017-12-03] MEDS: Montelukast 10 MG Tablet PO (15:38)
[2017-12-03] MEDS: Metoprolol(XL)Succ 50 MG Tablet PO (15:38)
[2017-12-03] MEDS: Aspirin 81 MG TAB.CHEW 162 MG PO (15:38)
--- NOTE | 2017-12-03 15:40 | PCM.HP.STD ---
Problem List (1) Pneumonia Status: Acute (2) Hypertension Status: Chronic Qualifiers: (3) Hyperlipidemia Status: Chronic Qualifiers: (4) Depression Status: Chronic (5) Hiatal hernia Status: Chronic (6) Obesity Status: Chronic (7) CHF (congestive heart failure) Status: Chronic Comment: Diastolic with ejection fraction 65%, June 2013 Status post cardiac catheterization October 2012 showing angiographically normal coronary arteries (8) Aortic stenosis Status: Chronic Qualifiers: Comment: S/P AVR in February 2004 with Mitchell Hernandez; redo AVR in September 2013 with a #21 O-X mechanical valve (9) Asthma Status: Chronic Comment: PFTs in June 2013 show a mild degree of obstruction non-reactive to bronchodilators History of Present Illness Date of Admission: 12/03/17 Chief Complaint: cough The patient is a 71 year old F with a hx of asthma, admission for pna in Aug 2017, diastolic CHF, s/p valve replacement, obesity, hiatal hernia, HLD, HTN, who presented to the ED with a chief complaint of worsening of cough. She started feeling more ill last night. She was seen by her PCP for a routine checkup last week, and was given prednisone because her doctor thought he heard something in her lung bases. She does follow Dr. Gutierrez for Pulmonology. She felt generally ill and began coughing more overnight. She states there are globs of blood and yellow mucus. She was having fevers chills and night sweats at home. No recent weight loss. She denies SOB. She was hypoxic in the ER with RA sat at 88%, she does not normally wear any O2 at home. She has no smoking hx. She denies CP, dizziness, body aches, LH, palp, sick contacts, she did have some nausea without v/d/abdominal pain, no dysuria. 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 (Chronic) Nonspecific chest pain (Chronic) Aneurysm, thoracic aortic (Chronic) Nonrheumatic aortic valve regurgitation (Chronic) Shortness of breath (Chronic) Fatigue (Chronic) S/P foot surgery (Chronic) S/P hysterectomy (Chronic) S/P sinus surgery (Chronic) x4 History of back surgery (Chronic) Hypertension (Chronic) Hyperlipidemia (Chronic) Depression (Chronic) Hiatal hernia (Chronic) Obesity (Chronic) CHF (congestive heart failure) (Chronic) Diastolic with ejection fraction 65%, June 2013 Status post cardiac catheterization October 2012 showing angiographically normal coronary arteries Aortic stenosis (Chronic) S/P AVR in February 2004 with Mitchell Hernandez; redo AVR in September 2013 with a #21 O-X mechanical valve Asthma (Chronic) PFTs in June 2013 show a mild degree of obstruction non-reactive to bronchodilators Chronic sinusitis (Chronic) With history of Pseudomonas and MRSA infection; following up with Dr. 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) Allergies Sulfa (Sulfonamide Antibiotics) Allergy (Verified 12/03/17 10:46) Swelling celecoxib [From Celebrex] Adverse Reaction (Severe, Verified 12/03/17 10:46) Unknown adhesive Adverse Reaction (Verified 12/03/17 10:46) blisters BLISTERS codeine Adverse Reaction (Verified 12/03/17 10:46) Itching levofloxacin [From Levaquin] Adverse Reaction (Verified 12/03/17 10:46) pain in legs and swelling PAIN IN LEG AND SWELLING lisinopril Adverse Reaction (Verified 12/03/17 10:46) cough oxycodone [Oxycodone] Adverse Reaction (Verified 12/03/17 10:46) Itching oxycodone HCl [From Percocet] Adverse Reaction (Verified 12/03/17 10:46) Itching AND MAKES HEAD FEEL FUNNY Penicillins Adverse Reaction (Verified 12/03/17 10:46) heart palpitations HEART PALPITATIONS prochlorperazine edisylate [From Compazine] Adverse Reaction (Verified 12/03/17 10:46) Low blood pressure prochlorperazine maleate [From Compazine] Adverse Reaction (Verified 12/03/17 10:46) Low blood pressure tramadol HCl [From Ultram] Adverse Reaction (Verified 12/03/17 10:46) Itching Home Medications: Ambulatory Orders Medication Instructions Recorded Ezetimibe [Zetia] 10 mg PO QHS 01/14/15 Pantoprazole Sodium [Protonix] 40 mg PO BID 01/14/15 Paroxetine HCl 20 mg PO BID 01/14/15 Pravastatin [Pravachol] 80 mg PO QHS 01/14/15 buPROPion XL [Wellbutrin Xl] 150 mg PO DAILY 11/15/15 Cyclobenzaprine [Flexeril] 10 mg PO BID PRN PRN 05/03/17 Ferrous Sulfate [Iron] 325 mg PO BID 05/03/17 Fluticasone/Vilanterol [Breo 1 ea IH DAILY 05/03/17 Ellipta 200-25 Mcg INH] Furosemide [Lasix] 40 mg PO DAILY 05/03/17 Montelukast [Singulair] 10 mg PO QHS 05/03/17 Potassium Chloride [K-Dur] 20 meq PO DAILY 05/03/17 aspirin 81 mg chewable tablet 162 mg PO DAILY tab 09/04/17 lorazepam 0.5 mg tablet 0.5 mg PO BID PRN 09/04/17 metoprolol succinate ER 50 mg 50 mg PO DAILY tab 09/04/17 tablet,extended release 24 hr fluticasone 50 mcg/actuation nasal 50 mcg INTRANASAL BID 09/28/17 spray,suspension Acetaminophen [Tylenol Extra 1,000 mg PO Q4H PRN PRN 12/03/17 Strength] Albuterol IH (ProAir) [Proair Hfa 2 puff INHALATION Q4H PRN PRN 12/03/17 (SP)Vent Pts] Warfarin [Coumadin (PBKC)] 5 mg PO DAILY 12/03/17 Surgical History: hysterectomy, - - 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 Denies: Chills, Fever, Weight Change HEENT: Denies: Head Aches, Sinus Congestion, Sinus Drainage Cardiovascular: Denies: Chest Pain, Edema, Heaviness, Light Headedness, Palpitations Respiratory: Reports: Cough, Hemoptysis, Sputum production. Denies: Pleuritic Pain, Shortness of Breath, Shortness of breath at rest, Shortness of breath upon exertion, Wheezing Gastrointestinal: Denies: Abdominal Pain, Nausea, Vomiting Genitourinary: Denies: Dysuria Musculoskeletal: Denies: Joint Pain, Joint Tenderness Skin: Denies: Rash, Wounds Neurological: Denies: Numbness, Tingling, Focal weakness Psychiatric: Denies: Anxiety, Depression, Homicidal Ideations, Suicidal Ideations Hematologic/ Lymphatic: Denies: Easy Bruising, Easy Bleeding VTE Information - Inpt Only VTE Present on Admission: No VTE Mechan Device Prophylaxis: SCD's VTE Pharm Prophylaxis ordered?: No Reason prophylaxis not ordered:: Medical Contraindication Patient Problems: Active and Suspected Problems (Last Updated 09/04/17 @ 09:45 by Solange Harley) Pneumonia (Acute) - Physical Exam General: Alert, Oriented x3, Cooperative HEENT: Atraumatic, PERRLA, EOMI, Normocephalic Neck: Supple, No JVD, Negative Carotid Bruits Lungs: Rales, Rhonchi Cardiovascular: Regular rate, No murmurs Abdomen: Bowel Sounds Present, Soft, Non Tender Extremities: No edema, Capillary Refill Less than 3 Seconds Skin: No rashes, No breakdown Musculoskeletal: No Tenderness to Palpation of Joints or Extremities Neurological: Cranial nerves II-XII grossly intact Psych/Mental Status: Normal Affect, Appropriate, Alert and oriented to time, place, person, mood and affect Vital Signs Temp Pulse Resp BP Pulse Ox 99.0 F 93 20 H 139/69 H 98 12/03/17 13:56 12/03/17 15:38 12/03/17 13:56 12/03/17 13:56 12/03/17 13:56 Oxygen Flow Rate (L/min) 1 Oxygen Delivery Method Nasal Cannula Weight: 81.873 kg Body Mass Index (BMI) 34.1 Assessment/Plan Active and Suspected Problems (Last Updated 09/04/17 @ 09:45 by Solange Harley) Pneumonia (Acute) 1. Severe sepsis 2/2 Acute CAP RML/RLL - + leukocytosis, tachycardia, tachypnea, elevated lactate. Given vanc and aztreonam in ER. Start rocephin and azithro. Provide aerosols, mucinex. Last admission was 3 months ago. Consult to pulmonary. BL rales and rhonchi on exam. Obtain CT chest. Urine antigens, sputum, blood culture pending. Start PEP/IS therapy. CXR with RML/RLL pna. Speech therapy eval. Stable on 2lpm O2 currently. No home o2. 2. Hemoptysis - hold warfarin and aspirin. INR 3.0. Hgb stable. 3. Chronic Diastolic CHF - avoid fluid overload. Hold lasix overnight. 4. CKDIII - appears to be near baseline. 5. Hypokalemia - replete. 6. s/p valve replacement - on coumadin - hold as above 7. HTN - stable at this time - home meds. 8. HLD - on statin/zetia 9. Depression - home meds 10. Asthma - follows Dr. Gutierrez as outpatient. on singulair. DVT ppx: SCDs - defer chemoppx with hemoptysis This patient was seen by Chung Selby PA-C under the supervision of Doctor Mcknight.
--- NOTE | 2017-12-03 15:50 | HP.PCM_ITS ---
Problem List (1) Pneumonia Status: Acute (2) Hypertension Status: Chronic Qualifiers: (3) Hyperlipidemia Status: Chronic Qualifiers: (4) Depression Status: Chronic (5) Hiatal hernia Status: Chronic (6) Obesity Status: Chronic (7) CHF (congestive heart failure) Status: Chronic Comment: Diastolic with ejection fraction 65%, June 2013 Status post cardiac catheterization October 2012 showing angiographically normal coronary arteries (8) Aortic stenosis Status: Chronic Qualifiers: Comment: S/P AVR in February 2004 with Mitchell Hernandez; redo AVR in September 2013 with a #21 O-X mechanical valve (9) Asthma Status: Chronic Comment: PFTs in June 2013 show a mild degree of obstruction non-reactive to bronchodilators History of Present Illness Date of Admission: 12/03/17 Chief Complaint: cough The patient is a 71 year old F with a hx of asthma, admission for pna in Aug 2017, diastolic CHF, s/p valve replacement, obesity, hiatal hernia, HLD, HTN , who presented to the ED with a chief complaint of worsening of cough. She started feeling more ill last night. She was seen by her PCP for a routine checkup last week, and was given prednisone because her doctor thought he heard something in her lung bases. She does follow Dr. Gutierrez for Pulmonology. She felt generally ill and began coughing more overnight. She states there are globs of blood and yellow mucus. She was having fevers chills and night sweats at home. No recent weight loss. She denies SOB. She was hypoxic in the ER with RA sat at 88%, she does not normally wear any O2 at home. She has no smoking hx. She denies CP, dizziness, body aches, LH, palp, sick contacts, she did have some nausea without v/d/abdominal pain, no dysuria. 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) Nonspecific chest pain (Chronic) Aneurysm, thoracic aortic (Chronic) Nonrheumatic aortic valve regurgitation (Chronic) Shortness of breath (Chronic) Fatigue (Chronic) S/P foot surgery (Chronic) S/P hysterectomy (Chronic) S/P sinus surgery (Chronic) x4 History of back surgery (Chronic) Hypertension (Chronic) Hyperlipidemia (Chronic) Depression (Chronic) Hiatal hernia (Chronic) Obesity (Chronic) CHF (congestive heart failure) (Chronic) Diastolic with ejection fraction 65%, June 2013 Status post cardiac catheterization October 2012 showing angiographically normal coronary arteries Aortic stenosis (Chronic) S/P AVR in February 2004 with Mitchell Hernandez; redo AVR in September 2013 with a # 21 O-X mechanical valve Asthma (Chronic) PFTs in June 2013 show a mild degree of obstruction non-reactive to bronchodilators Chronic sinusitis (Chronic) With history of Pseudomonas and MRSA infection; following up with Dr. 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) Allergies Sulfa (Sulfonamide Antibiotics) Allergy (Verified 12/03/17 10:46) Swelling celecoxib [From Celebrex] Adverse Reaction (Severe, Verified 12/03/17 10:46) Unknown adhesive Adverse Reaction (Verified 12/03/17 10:46) blisters BLISTERS codeine Adverse Reaction (Verified 12/03/17 10:46) Itching levofloxacin [From Levaquin] Adverse Reaction (Verified 12/03/17 10:46) pain in legs and swelling PAIN IN LEG AND SWELLING lisinopril Adverse Reaction (Verified 12/03/17 10:46) cough oxycodone [Oxycodone] Adverse Reaction (Verified 12/03/17 10:46) Itching oxycodone HCl [From Percocet] Adverse Reaction (Verified 12/03/17 10:46) Itching AND MAKES HEAD FEEL FUNNY Penicillins Adverse Reaction (Verified 12/03/17 10:46) heart palpitations HEART PALPITATIONS prochlorperazine edisylate [From Compazine] Adverse Reaction (Verified 12/03/17 10:46) Low blood pressure prochlorperazine maleate [From Compazine] Adverse Reaction (Verified 12/03/17 10 :46) Low blood pressure tramadol HCl [From Ultram] Adverse Reaction (Verified 12/03/17 10:46) Itching Home Medications: Ambulatory Orders Medication Instructions Recorded Ezetimibe [Zetia] 10 mg PO QHS 01/14/15 Pantoprazole Sodium [Protonix] 40 mg PO BID 01/14/15 Paroxetine HCl 20 mg PO BID 01/14/15 Pravastatin [Pravachol] 80 mg PO QHS 01/14/15 buPROPion XL [Wellbutrin Xl] 150 mg PO DAILY 11/15/15 Cyclobenzaprine [Flexeril] 10 mg PO BID PRN PRN 05/03/17 Ferrous Sulfate [Iron] 325 mg PO BID 05/03/17 Fluticasone/Vilanterol [Breo 1 ea IH DAILY 05/03/17 Ellipta 200-25 Mcg INH] Furosemide [Lasix] 40 mg PO DAILY 05/03/17 Montelukast [Singulair] 10 mg PO QHS 05/03/17 Potassium Chloride [K-Dur] 20 meq PO DAILY 05/03/17 aspirin 81 mg chewable tablet 162 mg PO DAILY tab 09/04/17 lorazepam 0.5 mg tablet 0.5 mg PO BID PRN 09/04/17 metoprolol succinate ER 50 mg 50 mg PO DAILY tab 09/04/17 tablet,extended release 24 hr fluticasone 50 mcg/actuation nasal 50 mcg INTRANASAL BID 09/28/17 spray,suspension Acetaminophen [Tylenol Extra 1,000 mg PO Q4H PRN PRN 12/03/17 Strength] Albuterol IH (ProAir) [Proair Hfa 2 puff INHALATION Q4H PRN PRN 12/03/17 (SP)Vent Pts] Warfarin [Coumadin (PBKC)] 5 mg PO DAILY 12/03/17 Surgical History: hysterectomy, - - 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 Denies: Chills, Fever, Weight Change HEENT: Denies: Head Aches, Sinus Congestion, Sinus Drainage Cardiovascular: Denies: Chest Pain, Edema, Heaviness, Light Headedness, Palpitations Respiratory: Reports: Cough, Hemoptysis, Sputum production. Denies: Pleuritic Pain, Shortness of Breath, Shortness of breath at rest, Shortness of breath upon exertion, Wheezing Gastrointestinal: Denies: Abdominal Pain, Nausea, Vomiting Genitourinary: Denies: Dysuria Musculoskeletal: Denies: Joint Pain, Joint Tenderness Skin: Denies: Rash, Wounds Neurological: Denies: Numbness, Tingling, Focal weakness Psychiatric: Denies: Anxiety, Depression, Homicidal Ideations, Suicidal Ideations Hematologic/ Lymphatic: Denies: Easy Bruising, Easy Bleeding VTE Information - Inpt Only VTE Present on Admission: No VTE Mechan Device Prophylaxis: SCD's VTE Pharm Prophylaxis ordered?: No Reason prophylaxis not ordered:: Medical Contraindication Patient Problems: Active and Suspected Problems (Last Updated 09/04/17 @ 09:45 by Solange Harley) Pneumonia (Acute) - Physical Exam General: Alert, Oriented x3, Cooperative HEENT: Atraumatic, PERRLA, EOMI, Normocephalic Neck: Supple, No JVD, Negative Carotid Bruits Lungs: Rales, Rhonchi Cardiovascular: Regular rate, No murmurs Abdomen: Bowel Sounds Present, Soft, Non Tender Extremities: No edema, Capillary Refill Less than 3 Seconds Skin: No rashes, No breakdown Musculoskeletal: No Tenderness to Palpation of Joints or Extremities Neurological: Cranial nerves II-XII grossly intact Psych/Mental Status: Normal Affect, Appropriate, Alert and oriented to time, place, person, mood and affect Vital Signs Temp Pulse Resp BP Pulse Ox 99.0 F 93 20 H 139/69 H 98 12/03/17 13:56 12/03/17 15:38 12/03/17 13:56 12/03/17 13:56 12/03/17 13:56 Oxygen Flow Rate (L/min) 1 Oxygen Delivery Method Nasal Cannula Weight: 81.873 kg Body Mass Index (BMI) 34.1 Assessment/Plan Active and Suspected Problems (Last Updated 09/04/17 @ 09:45 by Solange Harley) Pneumonia (Acute) 1. Severe sepsis 2/2 Acute CAP RML/RLL - + leukocytosis, tachycardia, tachypnea , elevated lactate. Given vanc and aztreonam in ER. Start rocephin and azithro. Provide aerosols, mucinex. Last admission was 3 months ago. Consult to pulmonary. BL rales and rhonchi on exam. Obtain CT chest. Urine antigens, sputum , blood culture pending. Start PEP/IS therapy. CXR with RML/RLL pna. Speech therapy eval. Stable on 2lpm O2 currently. No home o2. 2. Hemoptysis - hold warfarin and aspirin. INR 3.0. Hgb stable. 3. Chronic Diastolic CHF - avoid fluid overload. Hold lasix overnight. 4. CKDIII - appears to be near baseline. 5. Hypokalemia - replete. 6. s/p valve replacement - on coumadin - hold as above 7. HTN - stable at this time - home meds. 8. HLD - on statin/zetia 9. Depression - home meds 10. Asthma - follows Dr. Gutierrez as outpatient. on singulair. DVT ppx: SCDs - defer chemoppx with hemoptysis This patient was seen by Chung Selby PA-C under the supervision of Doctor Mcknight.
[2017-12-03] MEDS: Ceftriaxone 1 GM/50 ML BAG IV (16:14)
[2017-12-03 16:50] LABS: Lactic Acid 1.5 mmol/L (0.4-2.0)
--- NOTE | 2017-12-03 19:30 | RAD_ITS ---
STUDY: X-RAY - PARANASAL SINUSES REASON FOR EXAM: Female, 71 years old. Bilateral maxillary sinus pain TECHNIQUE: 3 view(s) of the paranasal sinuses were obtained. COMPARISON: None. FINDINGS: There is decreased volume in the right maxillary sinus sclerosed wall frequently seen with chronic sinus disease. There are no air-fluid levels. The right frontal sinus is hypoplastic. Normal visualized ethmoidal and sphenoid sinuses. Normal visualized facial bones. The soft tissue structures are unremarkable. RAD/Sinuses min 3 Views IMPRESSION: Right maxillary sinus changes suspicious for chronic sinusitis. No acute sinus disease detected. Right frontal sinus hypoplasia Electronically Signed: Nat Robledo MD at 4:09 EDT , Service support ,
[2017-12-03] MEDS: 0.9% NaCl Peripheral Flush Adult/Peds IV (20:51)
[2017-12-03] MEDS: Pravastatin 80 MG Tablet PO (20:51)
[2017-12-03] MEDS: Pantoprazole Sodium 40 MG Tablet PO (20:51)
[2017-12-03] MEDS: Ezetimibe 10 MG Tablet PO (20:51)
[2017-12-03] MEDS: guaiFENesin 1,200 MG Tablet 1200 MG PO (20:52)
[2017-12-03 22:24] LABS: M R Staph aureus DNA By PCR Negative (Negative); Probe Check PASS; Specimen Processing Control PASS
[2017-12-04] VITALS (19 sets, daily range): BP systolic 124–164; BP diastolic 51–78; PULSE 73–89; RESP 18–24; TEMP 36.9–38.1; O2SAT 81–98
[2017-12-04] MEDS: 0.9% Normal Saline 1,000 ML 75 ML IV (02:00)
[2017-12-04 06:05] LABS: Anion Gap 4 (5-15); BUN 12 mg/dL (7-18); BUN/Creat Ratio 15.8 RATIO (10-20); Calcium,Total 8.4 mg/dL (8.5-10.1); Chloride 109 mmol/L (98-107); Creatinine, Serum 0.76 mg/dL (0.55-1.02); EST Glomerular Filtration Rate 80 mL/min (>60); Est Glom Filt Rate - Afr Amer 96 mL/min (>60); Estimated Creatinine Clearance 38.37 ml/min; Glucose 76 mg/dL (74-106); Potassium 3.8 mmol/L (3.5-5.1); Sodium Level 143 mmol/L (136-145)
[2017-12-04 06:10] LABS: Absolute Lymphocyte Count 0.79 X10^3/ul (0.83-4.51); Absolute Neutrophil Count 17.2 X10^3/uL (2.0-7.7); Basophil# 0.03 X10^3/uL; Basophil% 0.2 % (0-1); Eosinophil# 0.05 X10^3/uL; Eosinophils% 0.3 % (0-5); Hemoglobin 11.6 g/dl (12.0-15.0); Lymphocyte # 0.79 X10^3/ul (4.0); Lymphocyte % 4.2 % (19-41); Mean Corp Hgb Conc 31.4 g/gl (32-36); Mean Corpuscular Hgb 26.8 pg (27.0-32.0); Mean Corpuscular Volume 85.5 fL (81-99); Mean Platelet Vol. 10.7 fl (6.2-12.0); Monocyte# 0.66 X10^3/uL; Monocyte% 3.5 % (0-10); Neutrophil # 17.19 X10^3/uL (2.7-7.7); Neutrophil % 91.6 % (47-70); Platelet Count 272 K/mm3 (150-450); RBC Distribution Width CV 14.9 % (11.6-14.6); RBC Distribution Width SD 45.8 fl (35.1-43.9); Red Blood Count 4.33 M/mm3 (4.2-5.4); White Blood Count 18.8 K/mm3 (4.4-11.0)
[2017-12-04 06:13] LABS: POSITIVE COUNT NO; POSITIVE DIFFERENTIAL NO; POSITIVE MORPHOLOGY NO
--- NOTE | 2017-12-04 08:21 | CON.PCM_ITS ---
Problem List (1) CAP (community acquired pneumonia) Status: Acute (2) Hemoptysis Status: Acute (3) H/O aortic valve replacement Status: Chronic Comment: ZUC-Zuepeejvkz-Vpzvti, 2003, Redo AVR 10/10 (#21 On-X mechanical valve) (4) Aneurysm, thoracic aortic Status: Chronic Qualifiers: Presence of rupture: without rupture Qualified Code(s): I71.2 - Thoracic aortic aneurysm, without rupture (5) Hypertension Status: Chronic Qualifiers: (6) Hyperlipidemia Status: Chronic Qualifiers: (7) Depression Status: Chronic (8) Hiatal hernia Status: Chronic (9) Obesity Status: Chronic (10) CHF (congestive heart failure) Status: Chronic Comment: Diastolic with ejection fraction 65%, June 2013 Status post cardiac catheterization October 2012 showing angiographically normal coronary arteries (11) Aortic stenosis Status: Chronic Qualifiers: Comment: S/P AVR in February 2004 with Mitchell Hernandez; redo AVR in September 2013 with a #21 O-X mechanical valve (12) Chronic sinusitis Status: Chronic Comment: H/O Pseudomonas, MRSA Reason for Consult Date of Consultation: 12/04/17 Reason for Consultation: PNA, hemoptysis History of Present Illness: The patient is a 71 year old F with past medical history as below, presented to the ED on 12/03 with complaints of dark red hemoptysis, increased cough, and sinus pressure. Patient does note she has a history of chronic sinusitis, asthma of unknown severity, and seasonal allergies with postnasal drip. Patient reports she was at a routine checkup at her primary care physician's office last week and he stated he heard some adventitious sounds in her lungs, so she was placed on a 5 day prednisone burst. Patient did have a cough at that time, otherwise not feeling horrible. She did have progressive cough with yellow sputum production over the weekend until the day of presentation, when she had dark red/black hemoptysis. The hemoptysis happens 1-3 times per day. She has no chest pain or tightness, no wheezing or shortness of breath at rest. She has mild dyspnea on exertion. Denies any orthopnea, paroxysmal nocturnal dyspnea, or nocturia. Reports bilateral lower rib pain with movement last week , but this has resolved. Workup in the ED included CBC which showed a leukocytosis of 14,700 with neutrophils at 93. History remarkable for potassium of 3.1, BUN 17 creatinine 1.07. Lactate initially elevated at 2.8 and decreased to 1.5 after IV fluid resuscitation. LFTs were normal. MRSA PCR was negative. Urine strep/ Legionella antigens were negative. Sputum and nasopharyngeal cultures were taken and are pending. Chest x-ray showed stable cardiomegaly, decreased density left base, and patchy opacity right lower lobe, right middle lobe and lower lobe atelectasis with elevation of the right hemidiaphragm. Chest CT with patchy infiltrates of the right lung, right lower lobe infiltrate/ consolidation, left lower lobe consolidation/atelectasis, trace effusion bilaterally, mild mediastinal adenopathy, dilated ascending aorta, and hiatal and ventral hernia. Patient was admitted to the progressive care unit for further management. Her T high was 100.4?F upon arrival, this morning she was 99.3?F. Denies any fever chills, nausea, vomiting, or diarrhea. She did cough up some dark blood this morning, however was unable to save as she was in the restroom. Patient denies any bright red blood. Patient denies any history of ulcers, weight loss, epistaxis, or cancer. She denies any hematochezia or melena. Denies any reflux. Upon presentation to the ED, patient was hypoxic at 88% on room air was placed on 2 L of oxygen. She denies any previous oxygen requirements, other than when she was hospitalized in August for pneumonia. At that time, sputum cultures were showing Pseudomonas, Haemophilus influenza A, and Staphylococcus aureus. She was treated with IV azithromycin and Rocephin and was discharged on Levaquin ?5 days. The patient had previously been followed by Dr. White for chronic sinusitis and history of Pseudomonas and MRSA. The patient follows with Dr. Gutierrez from [facility] pulmonology, she last saw him about 3 months ago and was switched from unknown medication to Breo. Patient also has pro-air that she uses maybe once every couple of months unless she is sick. Her last pulmonary function tests were in the fall she believes. She was told she has asthma, she is not sure of severity. Denies any history of COPD or other lung pathology, including bronchiectasis. The patient is a lifelong non-smoker, however she did have some secondhand smoke exposure when she was a child as her father smoked in the home. She has no history of exposure to TB or asbestos. Past Medical History Past Medical History (Chronic Problems): Chronic Problems (Last Updated 09/04/17 @ 09:45 by Solange Harley) Atherosclerotic heart disease of [place] coronary artery without angina pectoris (Chronic) Syncope and collapse (Chronic) Palpitations (Chronic) H/O aortic valve replacement (Chronic) [id number]-Dwuubl, 2003, Redo AVR 10/10 (#21 On-X mechanical valve) senior care use of drug (Chronic) Nonspecific chest pain (Chronic) Aneurysm, thoracic aortic (Chronic) Nonrheumatic aortic valve regurgitation (Chronic) Shortness of breath (Chronic) Fatigue (Chronic) S/P foot surgery (Chronic) S/P hysterectomy (Chronic) S/P sinus surgery (Chronic) x4 History of back surgery (Chronic) Hypertension (Chronic) Hyperlipidemia (Chronic) Depression (Chronic) Hiatal hernia (Chronic) Obesity (Chronic) CHF (congestive heart failure) (Chronic) Diastolic with ejection fraction 65%, June 2013 Status post cardiac catheterization October 2012 showing angiographically normal coronary arteries Aortic stenosis (Chronic) S/P AVR in February 2004 with Mitchell Hernandez; redo AVR in September 2013 with a # 21 O-X mechanical valve Asthma (Chronic) PFTs in June 2013 show a mild degree of obstruction non-reactive to bronchodilators Chronic sinusitis (Chronic) H/O Pseudomonas, 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) Allergies Sulfa (Sulfonamide Antibiotics) Allergy (Verified 12/03/17 10:46) Swelling celecoxib [From Celebrex] Adverse Reaction (Severe, Verified 12/03/17 10:46) Unknown adhesive Adverse Reaction (Verified 12/03/17 10:46) blisters BLISTERS codeine Adverse Reaction (Verified 12/03/17 10:46) Itching levofloxacin [From Levaquin] Adverse Reaction (Verified 12/03/17 10:46) pain in legs and swelling PAIN IN LEG AND SWELLING lisinopril Adverse Reaction (Verified 12/03/17 10:46) cough oxycodone [Oxycodone] Adverse Reaction (Verified 12/03/17 10:46) Itching oxycodone HCl [From Percocet] Adverse Reaction (Verified 12/03/17 10:46) Itching AND MAKES HEAD FEEL FUNNY Penicillins Adverse Reaction (Verified 12/03/17 10:46) heart palpitations HEART PALPITATIONS prochlorperazine edisylate [From Compazine] Adverse Reaction (Verified 12/03/17 10:46) Low blood pressure prochlorperazine maleate [From Compazine] Adverse Reaction (Verified 12/03/17 10 :46) Low blood pressure tramadol HCl [From [facility]] Adverse Reaction (Verified 12/03/17 10:46) Itching Home Medications: Ambulatory Orders Medication Instructions Recorded Ezetimibe [Zetia] 10 mg PO QHS 01/14/15 Pantoprazole Sodium [Protonix] 40 mg PO BID 01/14/15 Paroxetine HCl 20 mg PO BID 01/14/15 Pravastatin [Pravachol] 80 mg PO QHS 01/14/15 buPROPion XL [Wellbutrin Xl] 150 mg PO DAILY 11/15/15 Cyclobenzaprine [Flexeril] 10 mg PO BID PRN PRN 05/03/17 Ferrous Sulfate [Iron] 325 mg PO BID 05/03/17 Fluticasone/Vilanterol [Breo 1 ea IH DAILY 05/03/17 Ellipta 200-25 Mcg INH] Furosemide [Lasix] 40 mg PO BID 05/03/17 Montelukast [Singulair] 10 mg PO QHS 05/03/17 Potassium Chloride [K-Dur] 20 meq PO DAILY 05/03/17 aspirin 81 mg chewable tablet 162 mg PO DAILY tab 09/04/17 lorazepam 0.5 mg tablet 0.5 mg PO BID PRN 09/04/17 metoprolol succinate ER 50 mg 50 mg PO DAILY tab 09/04/17 tablet,extended release 24 hr fluticasone 50 mcg/actuation nasal 50 mcg INTRANASAL BID 09/28/17 spray,suspension Acetaminophen [Tylenol Extra 1,000 mg PO Q4H PRN PRN 12/03/17 Strength] Albuterol IH (ProAir) [Proair Hfa 2 puff INHALATION Q4H PRN PRN 12/03/17 (SP)Vent Pts] Warfarin [Coumadin ([facility])] 5 mg PO DAILY 12/03/17 Surgical History: hysterectomy, - - 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 Denies: Anorexia, Chills, Fever, Night Sweats , Malaise, Weakness, Weight Change Eyes: Denies: Vision Change HEENT: Reports: Post Nasal Drip, Sinus Congestion. Denies: Difficulty Hearing, Difficulty Swallowing, Nasal bleeding, Sore Throat Respiratory: Reports: Cough, Hemoptysis, Shortness of breath upon exertion, Sputum production. Denies: Pleuritic Pain, Shortness of breath at rest, Wheezing Gastrointestinal: Denies: Abdominal Pain, Constipation, Diarrhea, Dyspepsia, Hematemesis, Hematochezia, Nausea, Melena, Vomiting Genitourinary: Reports: Nocturia - once per night. Denies: Dysuria, Frequency, Hematuria, Hesitancy, Incontinence, Retention Gynecological: Denies: Vaginal bleeding Musculoskeletal: Denies: Back Pain, Leg Pain, Muscle pain, Neck Pain Patient Problems: Active and Suspected Problems (Last Updated 09/04/17 @ 09:45 by Solange Harley) Pneumonia (Acute) Hemoptysis (Acute) CAP (community acquired pneumonia) (Acute) Subjective: The patient was seen and examined. She denies any acute complaints. She does not feel short of breath. Maintaining appropriate saturations on 2 L of oxygen. She does have an intermittent cough with some hemoptysis this morning, describes it as dark red or black. It is typically a moderate amount. Objective: Clinical Impression(s) from Imaging Studies Chest X-Ray 12/03/17 11:12 IMPRESSION: Stable cardiomegaly. Decreased density in the left base. Patchy opacity at the right lower lobe which may represent an early/developing pneumonia. Right middle and lower lobe atelectasis with elevation of the right hemidiaphragm. Electronically Signed: Celio Simmons MD at 12:36 EDT , Service support , Chest CT 12/03/17 15:31 IMPRESSION: Patchy infiltrates of the right lung. Right lower lobe infiltrate/consolidation. Left lower lobe consolidation/atelectasis. Trace effusion bilaterally. Mild mediastinal adenopathy. Dilated ascending aorta. Fatty ventral hernia of the upper abdominal wall. Hiatal hernia. Electronically Signed: Jah Reese DO at 23:39 EDT Tel [phone], Service support , Sinuses X-Ray 12/03/17 19:30 IMPRESSION: Right maxillary sinus changes suspicious for chronic sinusitis. No acute sinus disease detected. Right frontal sinus hypoplasia Electronically Signed: Nat Robledo MD at 4:09 EDT , Service support , - Physical Exam General: Alert, Oriented x3, Cooperative, No apparent distress, Well developed, Well nourished, - - No conversational dyspnea HEENT: Atraumatic, Normocephalic Oral: Moist Mucosa, No Gingival or Mucosal Lesions/ Ulcerations, - - No posterior oropharynx lesions, edema, or erythema Neck: Supple, No Nodes, Trachea Midline Lungs: - - Diminished throughout with coarse diffuse rhonchi no wheezes or significant rales Cardiovascular: Regular rate, Regular Rhythm, Normal S1, Normal S2, No murmurs, No rub noted, No Gallop, - - valve click Abdomen: Bowel Sounds Present, Soft, Non Tender, Obese Extremities: No clubbing, No cyanosis, No edema, No Calf Tenderness Skin: No rashes, No breakdown Musculoskeletal: No Tenderness to Palpation of Joints or Extremities, No Muscle Wasting Lymphatic: No Cervical, Supraclavicular, or Inguinal Adenopathy Neurological: Cranial nerves II-XII grossly intact, Neuro grossly intact, Motor Exam 5/5 strength throughout Psych/Mental Status: Alert and oriented to time, place, person, mood and affect Vital Signs Temp Pulse Resp BP Pulse Ox 98.4 F 78 20 H 124/78 H 96 12/04/17 07:54 12/04/17 07:54 12/04/17 07:57 12/04/17 07:54 12/04/17 07:57 Oxygen Flow Rate (L/min) 2 Oxygen Delivery Method Nasal Cannula Weight: 180 lb 8 oz Body Mass Index (BMI) 34.1 Intake and Output for Last 24 Hours 12/02/17 12/03/17 12/04/17 23:59 23:59 23:59 Intake Total 899 / 899 1155 / 1155 Balance 899 / 899 1155 / 1155 Laboratory Tests Past 24 Hrs 12/03/17 12/03/17 12/04/17 16:10 20:55 05:10 WBC 18.8 H RBC 4.33 Hgb 11.6 L Hct 37.0 MCV 85.5 MCH 26.8 L MCHC 31.4 L RDW 14.9 H RDW Differential 45.8 H Plt Count 272 MPV 10.7 Immature Gran % (Auto) 0.200 Neut % (Auto) 91.6 H Lymph % (Auto) 4.2 L [place] % (Auto) 3.5 Eos % (Auto) 0.3 Baso % (Auto) 0.2 Absolute Neuts (auto) 17.2 H Absolute Lymphs (auto) 0.79 L Total Counted Not Reportable Sodium Potassium Chloride Carbon Dioxide Anion Gap BUN Creatinine Estim Creat Clear Calc Est GFR (MDRD) Af Amer Est GFR (MDRD) Non-Af BUN/Creatinine Ratio Glucose Lactic Acid 1.5 Calcium MRSA (PCR) Negative 12/04/17 05:10 WBC RBC Hgb Hct MCV MCH MCHC RDW RDW Differential Plt Count MPV Immature Gran % (Auto) Neut % (Auto) Lymph % (Auto) [place] % (Auto) Eos % (Auto) Baso % (Auto) Absolute Neuts (auto) Absolute Lymphs (auto) Total Counted Sodium 143 Potassium 3.8 Chloride 109 H Carbon Dioxide 30.0 Anion Gap 4 L BUN 12 Creatinine 0.76 Estim Creat Clear Calc 38.37 Est GFR (MDRD) Af Amer 96 Est GFR (MDRD) Non-Af 80 BUN/Creatinine Ratio 15.8 Glucose 76 Lactic Acid Calcium 8.4 L MRSA (PCR) Assessment/Plan Active and Suspected Problems (Last Updated 09/04/17 @ 09:45 by Solange Harley) Pneumonia (Acute) Hemoptysis (Acute) CAP (community acquired pneumonia) (Acute) RECOMMENDATIONS 1. Wean oxygen supplementation to keep saturations greater than 89% 2. Encourage aggressive incentive spirometer and Acapella 3. Increase activity as tolerated, mobilize 4. Continue aerosols 5. Change antibiotics, history of Pseudomonas and staph aureus 6. Daily INR 7. Monitor for additional hemoptysis 8. Await sputum, nasopharyngeal cultures, and blood cultures 9. Patient will require repeat chest x-ray in 4-6 weeks IMPRESSIONS 1. Acute hypoxic respiratory failure secondary to community-acquired pneumonia with subsequent hemoptysis Infectious workup pending. Patient did have low-grade temp and leukocytosis that is increased today to 18,800. CT shows evidence of bronchiectasis, significant infiltrate/consolidation. Recommend aggressive pulmonary toileting. Patient admitted on azithromycin and ceftriaxone, and August sputum growing Pseudomonas and staph aureus. Antibiotics changed accordingly pending infectious workup. May want to consider ID consultation. Hemoptysis is possibly related to her bronchiectasis, but will need to monitor closely. She is anticoagulated on Coumadin for mechanical AV replacement and INR was 3.0 on admit. Coumadin is on hold and will recheck INR. Wean oxygen supplementation to keep saturations greater than 89%. Follow-up with her primary lead enterprise architect at discharge. She will require a repeat chest x-ray in 4- 6 weeks to ensure resolution of pneumonia. 2. Self-reported asthma of unknown severity Does not appear to be an acute exacerbation at this time. Reports her last PFTs were in the summer 2016, this was completed at [facility] pulmonology Dr. Gutierrez' s office. Records were requested. Keep aerosols as PRN. 3. Obesity/diastolic CHF//hypertension/hyperlipidemia/depression/hiatal and ventral hernia/chronic sinusitis Complicates care, management, recovery, and prognosis. Continue home medications per hospitalist recommendations. A sinus x-ray showed right maxillary sinus changes consistent with chronic sinusitis, no acute disease detected. 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 Does not appear to be in an acute heart failure exacerbation, she has no increased edema. Last echo 2014 RVSP at that time was 29 mmHg an EF of 60%. Thank you for the opportunity to participate in this patient's care, please do not hesitate to contact us with any further questions or concerns. This note was generated with [employer] software. It may contain incorrect words, spelling, and punctuation that were not noted in checking the note before signing.
[2017-12-04] MEDS: Ferrous Sulfate 325 MG Tablet PO (08:56)
[2017-12-04] MEDS: guaiFENesin 1,200 MG Tablet 1200 MG PO ×2 (08:56→21:58)
[2017-12-04] MEDS: Ceftriaxone 1 GM/50 ML BAG IV (08:56)
[2017-12-04] MEDS: Pantoprazole Sodium 40 MG Tablet PO ×2 (08:56→21:57)
[2017-12-04] MEDS: Senna/Docusate Sodium 1 Tablet 2 TABLET PO (08:57)
[2017-12-04] MEDS: buPROPion (XL) 150 MG TABLET.XL PO (08:57)
[2017-12-04] MEDS: Montelukast 10 MG Tablet PO (08:57)
[2017-12-04] MEDS: Metoprolol(XL)Succ 50 MG Tablet PO (08:57)
[2017-12-04 09:53] LABS: International Normalized Ratio 2.6
[2017-12-04] MEDS: Piperacil/Tazobactam 3.375 GM/50 ML ML IV ×2 (10:13→21:57)
--- NOTE | 2017-12-04 11:20 | PCA ---
Faxed over a request to get medical records from [facility]
--- NOTE | 2017-12-04 11:30 | CASEMGMT ---
CARLOS SINGER Face to Face with patient for initial transition planning/care coordination assessment. RN CM introduced self and role at [facility]. Patient lying in bed, alert and oriented. Patient willing to participate in assessment and is able to answer all questions appropriately. Care providers, pharmacy, and demographics verified. See link attached. Patient wishes to discharge home, denies need for home health at this time. Patient states she has no further needs or concerns at this time. CM to follow for discharge planning needs that may arise. Disposition Plan: Patient to discharge home with family support and follow-up plans in place. CARLOS SINGER to monitor for need for home oxygen.
--- NOTE | 2017-12-04 12:33 | PCM.RX.CS ---
Consult Pharmacy has been consulted to manage selected antiobiotic: Vancomycin Type of Consult: New start Suspected Infection: Sepsis Prior Doses of Antibiotics Received/Current Regimen: 1X DOSE AST 1407 YESTERDAY IN ED Labs: Sodium 143 mmol/L (136-145) 12/04/17 05:10 Potassium 3.8 mmol/L (3.5-5.1) 12/04/17 05:10 Chloride 109 mmol/L (98-107) H 12/04/17 05:10 Carbon Dioxide 30.0 mmol/L (21.0-32.0) 12/04/17 05:10 Anion Gap 4 (5-15) L 12/04/17 05:10 BUN 12 mg/dL (7-18) 12/04/17 05:10 Creatinine 0.76 mg/dL (0.55-1.02) 12/04/17 05:10 Est GFR (MDRD) Af Amer 96 mL/min (>60) 12/04/17 05:10 Est GFR (MDRD) Non-Af 80 mL/min (>60) 12/04/17 05:10 BUN/Creatinine Ratio 15.8 RATIO (10-20) 12/04/17 05:10 Glucose 76 mg/dL (74-106) 12/04/17 05:10 Microbiology: Microbiology 12/03/17 20:55 Aspirate - Nose Gram Stain - Final 12/03/17 14:30 Sputum, Expectorated/Coughed Gram Stain - Final 12/03/17 14:30 Sputum, Expectorated/Coughed Respiratory Culture - Preliminary GNR Poss Pseudomonas sp Weight used for dosin.8 kg Estimated Creatinine Clearance: 38.37 Goal Trough: 15-20 mcg/mL Pharmacy Plan for Drug Dosing: Pharmacy Service will continue to monitor and adjust dosing as required. 1 GRAM Q12H. CHECK VANCO TROUGH PRIOR TO 4TH DOSE
--- NOTE | 2017-12-04 12:55 | PCM.PROGNOTE ---
Patient Problems: Active and Suspected Problems (Last Updated 09/04/17 @ 09:45 by Solange Harley) Pneumonia (Acute) Hemoptysis (Acute) CAP (community acquired pneumonia) (Acute) Subjective: Patient is being seen independently and in conjunction with Chung ESTRADA. She has been afebrile since admission. Vital signs are stable. Pulse ox on 2 L nasal O2 ranges from 95-96%. White blood cell count is 18.8, up from 14.7 on 12/03/2017. INR is 2.6 today and the Coumadin was held on 12/03/2017. Electrolytes are unremarkable and the potassium is 3.8, up from 3.1 at admission following supplementation. BUN is 12 and the creatinine today is 0.76, down from 1.07 at admission. Preliminary sputum culture shows 3+ g negative rods and Pseudomonas is suspected. She has in the past grown pseudomonas aeruginosa, pseudomonas putida and MSSA. The pseudomonas has always been susceptible to Zosyn she tells me that she is feeling a little better today. She continues to have some hemoptysis but it has decreased Denies CP. She has DUNCAN. No nausea and no abdominal pain. she has been using the IS hourly and the PEP as instructed. No diarrhea and no mouth sores - Physical Exam General: Alert, Oriented x3, Cooperative, - - looks ill and tired HEENT: Atraumatic, Normocephalic Oral: Dry Mucosa - but more moist than yesterday Neck: Supple, No JVD, Trachea Midline Lungs: Rales - she has better air exchange in the r base today and I can now clearly hear rales....BS are less diminished today, Rhonchi, - - There is symmetric chest expansion. She has no conversational dyspnea at rest and no accessory muscle use. Cardiovascular: Regular rate, Regular Rhythm, Normal S1, Normal S2, No murmurs - she does have a click from the mechanical AV....could not hear this yesterday over the coarse breath sounds, No rub noted, No Gallop, - - occasional PAC and PVC on telemetry Abdomen: Bowel Sounds Present, Soft, Non Tender, Non-Distended Extremities: No clubbing, No cyanosis, No edema Skin: No rashes Neurological: Cranial nerves II-XII grossly intact, Neuro grossly intact Psych/Mental Status: Normal Affect, Appropriate Vital Signs Temp Pulse Resp BP Pulse Ox 98.4 F 80 20 H 124/78 H 96 12/04/17 07:54 12/04/17 10:00 12/04/17 07:57 12/04/17 08:57 12/04/17 07:57 Oxygen Flow Rate (L/min) 2 Oxygen Delivery Method Nasal Cannula Weight: 180 lb 8 oz Body Mass Index (BMI) 34.1 Intake and Output for Last 24 Hours 12/02/17 12/03/17 12/04/17 23:59 23:59 23:59 Intake Total 899 / 899 1155 / 1155 Balance 899 / 899 1155 / 1155 Microbiology Past 72 Hours 12/03/17 20:55 Gram Stain - Final Aspirate - Nose 12/03/17 14:30 Gram Stain - Final Sputum, Expectorated/Coughed Respiratory Culture - Preliminary GNR Poss Pseudomonas sp Laboratory Tests Past 24 Hrs 12/03/17 12/03/17 12/04/17 16:10 20:55 05:10 WBC 18.8 H RBC 4.33 Hgb 11.6 L Hct 37.0 MCV 85.5 MCH 26.8 L MCHC 31.4 L RDW 14.9 H RDW Differential 45.8 H Plt Count 272 MPV 10.7 Immature Gran % (Auto) 0.200 Neut % (Auto) 91.6 H Lymph % (Auto) 4.2 L [place] % (Auto) 3.5 Eos % (Auto) 0.3 Baso % (Auto) 0.2 Absolute Neuts (auto) 17.2 H Absolute Lymphs (auto) 0.79 L Total Counted Not Reportable PT INR Sodium Potassium Chloride Carbon Dioxide Anion Gap BUN Creatinine Estim Creat Clear Calc Est GFR (MDRD) Af Amer Est GFR (MDRD) Non-Af BUN/Creatinine Ratio Glucose Lactic Acid 1.5 Calcium MRSA (PCR) Negative 12/04/17 12/04/17 05:10 09:30 WBC RBC Hgb Hct MCV MCH MCHC RDW RDW Differential Plt Count MPV Immature Gran % (Auto) Neut % (Auto) Lymph % (Auto) [place] % (Auto) Eos % (Auto) Baso % (Auto) Absolute Neuts (auto) Absolute Lymphs (auto) Total Counted PT 28.0 H INR 2.6 Sodium 143 Potassium 3.8 Chloride 109 H Carbon Dioxide 30.0 Anion Gap 4 L BUN 12 Creatinine 0.76 Estim Creat Clear Calc 38.37 Est GFR (MDRD) Af Amer 96 Est GFR (MDRD) Non-Af 80 BUN/Creatinine Ratio 15.8 Glucose 76 Lactic Acid Calcium 8.4 L MRSA (PCR) Medical Necessity - Tobacco Use Smoking Status: Never smoker Tobacco Use: Secondhand Assessment/Plan Active and Suspected Problems (Last Updated 09/04/17 @ 09:45 by Solange Harley) Pneumonia (Acute) Hemoptysis (Acute) CAP (community acquired pneumonia) (Acute) Impressions 1. Severe sepsis with lactic acidosis due to CAP BUT, has a hx of MSSA and pseudomonas in the sputum many times in the past. I suspect she has bronchiectasis. Will DC the Ceftriaxone and the Azithromycin and start Zosyn and Vanco until the culture results are available. The MRSA nasal swab was negative. 2. acute hypoxemia 3. Hemoptysis 4. Chronic anticoagulation with warfarin 5. History of a bioprosthetic aortic valve replacement followed by a mechanical valve replacement 6. Coronary artery disease with history of CABG 7. Hypertension 8. Hyperlipidemia 9. Hiatal hernia 10. History of diastolic congestive heart failure 11. Asthma Appreciate input from pulmonary Will discuss whether a percussion vest would be appropriate with Dr. Johnson.......I am worried that the hemoptysis may get worse with the vest. Vanco and Zosyn until the final cultures and the sensitivities are back Restart the Warfarin at 3 mg daily daily PT/INR Code Visit Inpatient E&M: 00305 Subs Hosp L2
[2017-12-04] MEDS: Acetaminophen 325 MG Tablet 650 MG PO (13:49)
--- NOTE | 2017-12-04 14:05 | NURSING ---
O2 SAT 97% ON RA @ REST. PT AMBULATED TO BR - BECAME SOB, ANXIOUS, O2 SAT DOWN TO 81% ON RA. RETURNED TO BED & PLACED ON O2 1L NC - SAT UP TO 99% ON 1L NC. R.T. NOTIFIED FOR PRN AEROSOL TX.
[2017-12-04] MEDS: Albuterol 2.5 MG/3 ML VIAL.NEB. INHALATION (14:18)
[2017-12-04] MEDS: Ezetimibe 10 MG Tablet PO (21:57)
[2017-12-04] MEDS: Pravastatin 80 MG Tablet PO (21:57)
[2017-12-04] MEDS: 0.9% NaCl Peripheral Flush Adult/Peds IV (22:13)
[2017-12-04] MEDS: LORazepam 0.5 MG Tablet PO (22:49)
[2017-12-05] VITALS (12 sets, daily range): BP systolic 149–157; BP diastolic 68–90; PULSE 76–128; RESP 16–20; TEMP 36.9–37.8; O2SAT 94–97
[2017-12-05] MEDS: Piperacil/Tazobactam 3.375 GM/50 ML ML IV (05:43)
[2017-12-05 06:08] LABS: Hematocrit 35.9 % (37-47); Hemoglobin 11.2 g/dl (12.0-15.0); Mean Corp Hgb Conc 31.2 g/gl (32-36); Mean Corpuscular Hgb 26.5 pg (27.0-32.0); Mean Corpuscular Volume 85.1 fL (81-99); Mean Platelet Vol. 10.5 fl (6.2-12.0); Platelet Count 258 K/mm3 (150-450); RBC Distribution Width CV 14.8 % (11.6-14.6); RBC Distribution Width SD 44.9 fl (35.1-43.9); Red Blood Count 4.22 M/mm3 (4.2-5.4); White Blood Count 14.3 K/mm3 (4.4-11.0)
[2017-12-05 06:17] LABS: International Normalized Ratio 2.2; Prothrombin Time (Protime)PT. 24.2 SECONDS (11.7-14.9)
[2017-12-05 06:18] LABS: Scan Indicated on CBC? Y/N NO
[2017-12-05 06:19] LABS: BUN 7 mg/dL (7-18); BUN/Creat Ratio 9.2 RATIO (10-20); Calcium,Total 8.7 mg/dL (8.5-10.1); Chloride 107 mmol/L (98-107); Creatinine, Serum 0.76 mg/dL (0.55-1.02); EST Glomerular Filtration Rate 79 mL/min (>60); Est Glom Filt Rate - Afr Amer 95 mL/min (>60); Estimated Creatinine Clearance 38.37 ml/min; Glucose 86 mg/dL (74-106); Potassium 3.3 mmol/L (3.5-5.1); Sodium Level 143 mmol/L (136-145)
[2017-12-05 06:20] LABS: Anion Gap 8 (5-15)
--- NOTE | 2017-12-05 08:15 | PCM.PROGNOTE ---
Patient Problems: Active and Suspected Problems (Last Updated 09/04/17 @ 09:45 by Solange Harley) Pneumonia (Acute) Hemoptysis (Acute) CAP (community acquired pneumonia) (Acute) Subjective: Patient was seen and examined. She appears worse today, her lungs sound coarse without auscultation. She is very fatigued. Denies any specific shortness of breath, feels weak when ambulating. Denies any fever or chills overnight. She did not sleep well. Nursing staff reports she was on room air when ambulating to the bathroom last evening and was 81%. Objective: Recent lab and culture data reviewed. Sputum culture Pseudomonas, preliminary [employer] culture Staph aureus. Urine culture likely mixed contaminants. Blood cultures pending. Urine strep/Legionella antigens were negative, as well as influenza screening. Patient overall +3400 fluid balance. Echocardiogram December 2014 showed an estimated EF of 60%, mild to moderate concentric LVH, mildly enlarged left atrium and mild mitral annular calcification, trivial MVI and TVI, stable mechanical aortic valve prosthesis, trivial transvalvular insufficiency of the aortic valve, and RVSP at 29 mmHg. - Physical Exam General: Alert, Oriented x3, Cooperative, No apparent distress, - - No conversational dyspnea HEENT: Atraumatic, Normocephalic Oral: Moist Mucosa, No Gingival or Mucosal Lesions/ Ulcerations Neck: Supple, No Nodes, Trachea Midline Lungs: No wheeze, Diminished, Rales, - - Diffuse rhonchi, very coarse Cardiovascular: Normal S1, Normal S2, No murmurs, Irregular Rate, No rub noted, No Gallop Abdomen: Bowel Sounds Present, Soft, Non Tender, Non-Distended, Obese Extremities: No clubbing, No cyanosis, No edema Skin: - - No changes from previous Musculoskeletal: No Tenderness to Palpation of Joints or Extremities Lymphatic: No Cervical, Supraclavicular, or Inguinal Adenopathy Neurological: Neuro grossly intact Psych/Mental Status: Appropriate, Flat Affect, - - tearful Vital Signs Temp Pulse Resp BP Pulse Ox 99.9 F H 86 20 H 157/78 H 95 12/05/17 06:08 12/05/17 06:08 12/05/17 06:08 12/05/17 06:08 12/05/17 07:38 Oxygen Flow Rate (L/min) 1 Oxygen Delivery Method Nasal Cannula Weight: 180 lb 7.985 oz Body Mass Index (BMI) 34.1 Intake and Output for Last 24 Hours 12/03/17 12/04/17 12/05/17 23:59 23:59 23:59 Intake Total 899 / 899 3575 / 3575 450 / 450 Output Total 1000 / 1000 Balance 899 / 899 2575 / 2575 450 / 450 Microbiology Past 72 Hours 12/03/17 20:55 Gram Stain - Final Aspirate - Nose 12/03/17 14:30 Gram Stain - Final Sputum, Expectorated/Coughed Respiratory Culture - Preliminary GNR Poss Pseudomonas sp Laboratory Tests Past 24 Hrs 12/04/17 12/05/17 12/05/17 09:30 05:25 05:25 WBC 14.3 H RBC 4.22 Hgb 11.2 L Hct 35.9 L MCV 85.1 MCH 26.5 L MCHC 31.2 L RDW 14.8 H RDW Differential 44.9 H Plt Count 258 MPV 10.5 PT 28.0 H 24.2 H INR 2.6 2.2 Sodium Potassium Chloride Carbon Dioxide Anion Gap BUN Creatinine Estim Creat Clear Calc Est GFR (MDRD) Af Amer Est GFR (MDRD) Non-Af BUN/Creatinine Ratio Glucose Calcium Magnesium 12/05/17 12/05/17 05:25 05:25 WBC RBC Hgb Hct MCV MCH MCHC RDW RDW Differential Plt Count MPV PT INR Sodium 143 Potassium 3.3 L Chloride 107 Carbon Dioxide 28.0 Anion Gap 8 BUN 7 Creatinine 0.76 Estim Creat Clear Calc 38.37 Est GFR (MDRD) Af Amer 95 Est GFR (MDRD) Non-Af 79 BUN/Creatinine Ratio 9.2 L Glucose 86 Calcium 8.7 Magnesium Pending Medical Necessity - Tobacco Use Smoking Status: Never smoker Tobacco Use: Secondhand Assessment/Plan Active and Suspected Problems (Last Updated 09/04/17 @ 09:45 by Solange Harley) Pneumonia (Acute) Hemoptysis (Acute) CAP (community acquired pneumonia) (Acute) RECOMMENDATIONS 1. Wean oxygen supplementation to keep saturations greater than 89% 2. Encourage aggressive incentive spirometer and Acapella, please reinforce. May need to switch to vest, however cautiously with continued hemoptysis 3. Increase activity as tolerated, mobilize 4. Continue aerosols, added Duonebs 5. Continue empiric antibiotics pending infectious workup 6. Daily INR 7. Monitor for additional hemoptysis 8. Await final culture results 9. Patient will require repeat chest x-ray in 4-6 weeks IMPRESSIONS 1. Acute hypoxic respiratory insufficiency secondary to multifocal pneumonia with hemoptysis Infectious workup pending. Sputum growing Pseudomonas and preliminary nasopharyngeal cx showing Staph aureus. August sputum growing Pseudomonas and staph aureus, antibiotics were changed accordingly and ID consultation pending. Continues with low-grade temps, improved leukocytosis. Recommend aggressive pulmonary toileting. Education again provided to patient on colonization of bacteria, importance of pulmonary hygiene, etc. Hemoptysis is possibly related to her infection, is persistent but somewhat improved. She is anticoagulated on Coumadin for mechanical AV replacement. INR 12/05 2.2, her Coumadin was restarted by hospitalist. Wean oxygen supplementation to keep saturations greater than 89%. She will require a repeat chest x-ray in 4-6 weeks to ensure resolution of pneumonia. 12/05: Admits to not doing Acapella even though we discussed it at length yesterday. Did not think it was helping. Reinforced education. Patient agreeable to aggressive IS/Acapella. Discussed vest therapy, but still having hemoptysis-- I did observe old blood stained tissues in trash can. Lungs sound worse today, may need to proceed with vest. Await ID consult. 2. Self-reported asthma of unknown severity Does not appear to be an acute exacerbation at this time. Reports her last PFTs were in the summer 2016, this was completed at [facility] pulmonology Dr. Gutierrez's office. Records were requested. Continue aerosols, Duonebs were added. 3. Obesity/diastolic CHF//hypertension/hyperlipidemia/depression/hiatal and ventral hernia/chronic sinusitis Complicates care, management, recovery, and prognosis. Continue home medications per hospitalist recommendations. A sinus x-ray showed right maxillary sinus changes c/w chronic sinusitis, no acute disease detected. Does not appear to be in an acute heart failure exacerbation. Last echo 2014 RVSP at that time was 29 mmHg an EF of 60%. Thank you for the opportunity to participate in this patient's care, please do not hesitate to contact us with any further questions or concerns. This note was generated with [employer] software. It may contain incorrect words, spelling, and punctuation that were not noted in checking the note before signing.
[2017-12-05] MEDS: Fluticasone 0.05% 1 SPRAY NASAL.SRY NASAL (09:06)
[2017-12-05] MEDS: Senna/Docusate Sodium 1 Tablet 2 TABLET PO (09:06)
[2017-12-05] MEDS: guaiFENesin 1,200 MG Tablet 1200 MG PO ×2 (09:10→20:50)
[2017-12-05] MEDS: Ferrous Sulfate 325 MG Tablet PO (09:10)
[2017-12-05] MEDS: Montelukast 10 MG Tablet PO (09:11)
[2017-12-05] MEDS: Pantoprazole Sodium 40 MG Tablet PO ×2 (09:11→21:02)
[2017-12-05] MEDS: buPROPion (XL) 150 MG TABLET.XL PO (09:11)
[2017-12-05] MEDS: Ipratropium/Albuterol Sulfate 3 ML AMPUL.NEB INHALATION ×3 (10:53→18:55)
[2017-12-05] MEDS: Metoprolol(XL)Succ 50 MG Tablet PO (10:56)
--- NOTE | 2017-12-05 12:02 | PCM.HP.ID ---
Problem List (1) Pneumonia Status: Acute Reason for Consult: pseudomonas Consulted by: Dr. Mcknight History of Present Illness: The patient is a 71 year old F [facility] who presented 5/ with 4-5 days of progressive cough, SOB, fever, chills, nausea. Coughing up thick dark, bloody sputum. Had bee treated for Pseudomonas putida, MSSA, and h.flu pneumonia in August. Came to ED, started on aztreonam, azithro, ceftriaxone. Now on vanc/zosyn. Feeling a little better, fever improved. Full ROS performed and neg except as noted above. 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) Nonspecific chest pain (Chronic) Aneurysm, thoracic aortic (Chronic) Nonrheumatic aortic valve regurgitation (Chronic) Shortness of breath (Chronic) Fatigue (Chronic) S/P foot surgery (Chronic) S/P hysterectomy (Chronic) S/P sinus surgery (Chronic) x4 History of back surgery (Chronic) Hypertension (Chronic) Hyperlipidemia (Chronic) Depression (Chronic) Hiatal hernia (Chronic) Obesity (Chronic) CHF (congestive heart failure) (Chronic) Diastolic with ejection fraction 65%, June 2013 Status post cardiac catheterization October 2012 showing angiographically normal coronary arteries Aortic stenosis (Chronic) S/P AVR in February 2004 with Mitchell Hernandez; redo AVR in September 2013 with a #21 O-X mechanical valve Asthma (Chronic) PFTs in June 2013 show a mild degree of obstruction non-reactive to bronchodilators Chronic sinusitis (Chronic) H/O Pseudomonas, 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) Allergies/Adverse Reactions: Allergies Sulfa (Sulfonamide Antibiotics) Allergy (Verified 12/03/17 10:46) Swelling celecoxib [From Celebrex] Adverse Reaction (Severe, Verified 12/03/17 10:46) Unknown adhesive Adverse Reaction (Verified 12/03/17 10:46) blisters BLISTERS codeine Adverse Reaction (Verified 12/03/17 10:46) Itching levofloxacin [From Levaquin] Adverse Reaction (Verified 12/03/17 10:46) pain in legs and swelling PAIN IN LEG AND SWELLING lisinopril Adverse Reaction (Verified 12/03/17 10:46) cough oxycodone [Oxycodone] Adverse Reaction (Verified 12/03/17 10:46) Itching oxycodone HCl [From Percocet] Adverse Reaction (Verified 12/03/17 10:46) Itching AND MAKES HEAD FEEL FUNNY Penicillins Adverse Reaction (Verified 12/03/17 10:46) heart palpitations HEART PALPITATIONS prochlorperazine edisylate [From Compazine] Adverse Reaction (Verified 12/03/17 10:46) Low blood pressure prochlorperazine maleate [From Compazine] Adverse Reaction (Verified 12/03/17 10:46) Low blood pressure tramadol HCl [From Ultram] Adverse Reaction (Verified 12/03/17 10:46) Itching Home Medications: Ambulatory Orders Medication Instructions Recorded Ezetimibe [Zetia] 10 mg PO QHS 01/14/15 Pantoprazole Sodium [Protonix] 40 mg PO BID 01/14/15 Paroxetine HCl 20 mg PO BID 01/14/15 Pravastatin [Pravachol] 80 mg PO QHS 01/14/15 buPROPion XL [Wellbutrin Xl] 150 mg PO DAILY 11/15/15 Cyclobenzaprine [Flexeril] 10 mg PO BID PRN PRN 05/03/17 Ferrous Sulfate [Iron] 325 mg PO BID 05/03/17 Fluticasone/Vilanterol [Breo 1 ea IH DAILY 05/03/17 Ellipta 200-25 Mcg INH] Furosemide [Lasix] 40 mg PO BID 05/03/17 Montelukast [Singulair] 10 mg PO QHS 05/03/17 Potassium Chloride [K-Dur] 20 meq PO DAILY 05/03/17 aspirin 81 mg chewable tablet 162 mg PO DAILY tab 09/04/17 lorazepam 0.5 mg tablet 0.5 mg PO BID PRN 09/04/17 metoprolol succinate ER 50 mg 50 mg PO DAILY tab 09/04/17 tablet,extended release 24 hr fluticasone 50 mcg/actuation nasal 50 mcg INTRANASAL BID 09/28/17 spray,suspension Acetaminophen [Tylenol Extra 1,000 mg PO Q4H PRN PRN 12/03/17 Strength] Albuterol IH (ProAir) [Proair Hfa 2 puff INHALATION Q4H PRN PRN 12/03/17 (SP)Vent Pts] Warfarin [Coumadin (PBKC)] 5 mg PO DAILY 12/03/17 - Social History Tobacco Use: non-smoker Vital Signs Temp Pulse Resp BP Pulse Ox 99.9 F H 76 20 H 157/78 H 97 12/05/17 06:08 12/05/17 11:00 12/05/17 11:00 12/05/17 06:08 12/05/17 08:00 Oxygen Flow Rate (L/min) 1 Oxygen Delivery Method Nasal Cannula Weight: 81.873 kg Body Mass Index (BMI) 34.1 Microbiology Past 72 Hours 12/03/17 20:55 Gram Stain - Final Aspirate - Nose Nasopharyngeal Culture - Preliminary Staphylococcus aureus 12/03/17 14:30 Gram Stain - Final Sputum, Expectorated/Coughed Respiratory Culture - Final Pseudomonas aeroginosa Laboratory Tests Past 24 Hrs 12/05/17 12/05/17 12/05/17 05:25 05:25 05:25 WBC 14.3 H RBC 4.22 Hgb 11.2 L Hct 35.9 L MCV 85.1 MCH 26.5 L MCHC 31.2 L RDW 14.8 H RDW Differential 44.9 H Plt Count 258 MPV 10.5 PT 24.2 H INR 2.2 Sodium 143 Potassium 3.3 L Chloride 107 Carbon Dioxide 28.0 Anion Gap 8 BUN 7 Creatinine 0.76 Estim Creat Clear Calc 38.37 Est GFR (MDRD) Af Amer 95 Est GFR (MDRD) Non-Af 79 BUN/Creatinine Ratio 9.2 L Glucose 86 Calcium 8.7 Magnesium 12/05/17 05:25 WBC RBC Hgb Hct MCV MCH MCHC RDW RDW Differential Plt Count MPV PT INR Sodium Potassium Chloride Carbon Dioxide Anion Gap BUN Creatinine Estim Creat Clear Calc Est GFR (MDRD) Af Amer Est GFR (MDRD) Non-Af BUN/Creatinine Ratio Glucose Calcium Magnesium 2.0 - Other Studies Radiology: [] reviewed Other Studies: [] Route of nutrition/ use of supplements: [] Nutritional Intake: [] IV Site: [] Murphy Catheter: [] - Physical Exam General: Alert, Cooperative, No apparent distress HEENT: Atraumatic, PERRLA, EOMI Neck: Supple, No Nodes Lungs: Diminished, Rhonchi Cardiovascular: Regular rate, Regular Rhythm, Murmur - with click Abdomen: Soft, Non Tender, Non-Distended Extremities: No edema Skin: No rashes IV Site: Peripheral, without redness Musculoskeletal: No Tenderness to Palpation of Joints or Extremities Neurological: Cranial nerves II-XII grossly intact - Assessment/Plan Antibiotics: [] Assessment/Plan: [] Active and Suspected Problems (Last Updated 09/04/17 @ 09:45 by Solange Harley) Pneumonia (Acute) Hemoptysis (Acute) CAP (community acquired pneumonia) (Acute) Pseudomonas pneumonia - improving. P/w severe sepsis, elevated fever/wbc/lactate. No congestion or headache, so low suspicion for sinusitis. Will narrow coverage to cefepime, plan on 2 week course, stop date 12/18/17. Will order midline. MRSA pcr was neg. Thank you, will follow. D/w primary team, pulm, telephonic nurse case manager.
--- NOTE | 2017-12-05 12:07 | CON.PCM_ITS ---
Problem List (1) Pneumonia Status: Acute Reason for Consult: pseudomonas Consulted by: Dr. Mcknight History of Present Illness: The patient is a 71 year old F [facility] who presented 5/ with 4-5 days of progressive cough, SOB, fever, chills, nausea. Coughing up thick dark, bloody sputum. Had bee treated for Pseudomonas putida, MSSA, and h.flu pneumonia in August. Came to ED, started on aztreonam, azithro, ceftriaxone. Now on vanc/zosyn. Feeling a little better, fever improved. Full ROS performed and neg except as noted above. 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) Nonspecific chest pain (Chronic) Aneurysm, thoracic aortic (Chronic) Nonrheumatic aortic valve regurgitation (Chronic) Shortness of breath (Chronic) Fatigue (Chronic) S/P foot surgery (Chronic) S/P hysterectomy (Chronic) S/P sinus surgery (Chronic) x4 History of back surgery (Chronic) Hypertension (Chronic) Hyperlipidemia (Chronic) Depression (Chronic) Hiatal hernia (Chronic) Obesity (Chronic) CHF (congestive heart failure) (Chronic) Diastolic with ejection fraction 65%, June 2013 Status post cardiac catheterization October 2012 showing angiographically normal coronary arteries Aortic stenosis (Chronic) S/P AVR in February 2004 with Mitchell Hernandez; redo AVR in September 2013 with a # 21 O-X mechanical valve Asthma (Chronic) PFTs in June 2013 show a mild degree of obstruction non-reactive to bronchodilators Chronic sinusitis (Chronic) H/O Pseudomonas, 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) Allergies/Adverse Reactions: Allergies Sulfa (Sulfonamide Antibiotics) Allergy (Verified 12/03/17 10:46) Swelling celecoxib [From Celebrex] Adverse Reaction (Severe, Verified 12/03/17 10:46) Unknown adhesive Adverse Reaction (Verified 12/03/17 10:46) blisters BLISTERS codeine Adverse Reaction (Verified 12/03/17 10:46) Itching levofloxacin [From Levaquin] Adverse Reaction (Verified 12/03/17 10:46) pain in legs and swelling PAIN IN LEG AND SWELLING lisinopril Adverse Reaction (Verified 12/03/17 10:46) cough oxycodone [Oxycodone] Adverse Reaction (Verified 12/03/17 10:46) Itching oxycodone HCl [From Percocet] Adverse Reaction (Verified 12/03/17 10:46) Itching AND MAKES HEAD FEEL FUNNY Penicillins Adverse Reaction (Verified 12/03/17 10:46) heart palpitations HEART PALPITATIONS prochlorperazine edisylate [From Compazine] Adverse Reaction (Verified 12/03/17 10:46) Low blood pressure prochlorperazine maleate [From Compazine] Adverse Reaction (Verified 12/03/17 10 :46) Low blood pressure tramadol HCl [From Ultram] Adverse Reaction (Verified 12/03/17 10:46) Itching Home Medications: Ambulatory Orders Medication Instructions Recorded Ezetimibe [Zetia] 10 mg PO QHS 01/14/15 Pantoprazole Sodium [Protonix] 40 mg PO BID 01/14/15 Paroxetine HCl 20 mg PO BID 01/14/15 Pravastatin [Pravachol] 80 mg PO QHS 01/14/15 buPROPion XL [Wellbutrin Xl] 150 mg PO DAILY 11/15/15 Cyclobenzaprine [Flexeril] 10 mg PO BID PRN PRN 05/03/17 Ferrous Sulfate [Iron] 325 mg PO BID 05/03/17 Fluticasone/Vilanterol [Breo 1 ea IH DAILY 05/03/17 Ellipta 200-25 Mcg INH] Furosemide [Lasix] 40 mg PO BID 05/03/17 Montelukast [Singulair] 10 mg PO QHS 05/03/17 Potassium Chloride [K-Dur] 20 meq PO DAILY 05/03/17 aspirin 81 mg chewable tablet 162 mg PO DAILY tab 09/04/17 lorazepam 0.5 mg tablet 0.5 mg PO BID PRN 09/04/17 metoprolol succinate ER 50 mg 50 mg PO DAILY tab 09/04/17 tablet,extended release 24 hr fluticasone 50 mcg/actuation nasal 50 mcg INTRANASAL BID 09/28/17 spray,suspension Acetaminophen [Tylenol Extra 1,000 mg PO Q4H PRN PRN 12/03/17 Strength] Albuterol IH (ProAir) [Proair Hfa 2 puff INHALATION Q4H PRN PRN 12/03/17 (SP)Vent Pts] Warfarin [Coumadin ([facility])] 5 mg PO DAILY 12/03/17 - Social History Tobacco Use: non-smoker Vital Signs Temp Pulse Resp BP Pulse Ox 99.9 F H 76 20 H 157/78 H 97 12/05/17 06:08 12/05/17 11:00 12/05/17 11:00 12/05/17 06:08 12/05/17 08:00 Oxygen Flow Rate (L/min) 1 Oxygen Delivery Method Nasal Cannula Weight: 81.873 kg Body Mass Index (BMI) 34.1 Microbiology Past 72 Hours 12/03/17 20:55 Gram Stain - Final Aspirate - Nose Nasopharyngeal Culture - Preliminary Staphylococcus aureus 12/03/17 14:30 Gram Stain - Final Sputum, Expectorated/Coughed Respiratory Culture - Final Pseudomonas aeroginosa Laboratory Tests Past 24 Hrs 12/05/17 12/05/17 12/05/17 05:25 05:25 05:25 WBC 14.3 H RBC 4.22 Hgb 11.2 L Hct 35.9 L MCV 85.1 MCH 26.5 L MCHC 31.2 L RDW 14.8 H RDW Differential 44.9 H Plt Count 258 MPV 10.5 PT 24.2 H INR 2.2 Sodium 143 Potassium 3.3 L Chloride 107 Carbon Dioxide 28.0 Anion Gap 8 BUN 7 Creatinine 0.76 Estim Creat Clear Calc 38.37 Est GFR (MDRD) Af Amer 95 Est GFR (MDRD) Non-Af 79 BUN/Creatinine Ratio 9.2 L Glucose 86 Calcium 8.7 Magnesium 12/05/17 05:25 WBC RBC Hgb Hct MCV MCH MCHC RDW RDW Differential Plt Count MPV PT INR Sodium Potassium Chloride Carbon Dioxide Anion Gap BUN Creatinine Estim Creat Clear Calc Est GFR (MDRD) Af Amer Est GFR (MDRD) Non-Af BUN/Creatinine Ratio Glucose Calcium Magnesium 2.0 - Other Studies Radiology: [] reviewed Other Studies: [] Route of nutrition/ use of supplements: [] Nutritional Intake: [] IV Site: [] Murphy Catheter: [] - Physical Exam General: Alert, Cooperative, No apparent distress HEENT: Atraumatic, PERRLA, EOMI Neck: Supple, No Nodes Lungs: Diminished, Rhonchi Cardiovascular: Regular rate, Regular Rhythm, Murmur - with click Abdomen: Soft, Non Tender, Non-Distended Extremities: No edema Skin: No rashes IV Site: Peripheral, without redness Musculoskeletal: No Tenderness to Palpation of Joints or Extremities Neurological: Cranial nerves II-XII grossly intact - Assessment/Plan Antibiotics: [] Assessment/Plan: [] Active and Suspected Problems (Last Updated 09/04/17 @ 09:45 by Solange Harley) Pneumonia (Acute) Hemoptysis (Acute) CAP (community acquired pneumonia) (Acute) Pseudomonas pneumonia - improving. P/w severe sepsis, elevated fever/wbc/ lactate. No congestion or headache, so low suspicion for sinusitis. Will narrow coverage to cefepime, plan on 2 week course, stop date 12/18/17. Will order midline. MRSA pcr was neg. Thank you, will follow. 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
--- NOTE | 2017-12-05 13:38 | CASEMGMT ---
SW spoke w/pt and in room regarding discharge plan, as pt needs IV antibiotics 3 times/day. SW reviewed options, including intermediate facility and home w/home health care. SW explained that SNF will be covered by Medicare at 100%, reviewed the Medicare SNF benefit. SW explained for home health we will look into the cost of the medication and let pt and know. Pt would like to go home, does not want to go to SNF. SW explained to pt and that home health will teach how to do the IV antibiotics at home, that a nurse would not come out every day. states understanding and states feels capable of learning how to do this, states took care of pt before at home. Pt and do not have a preference for home health care agency, SW explained we will start w/[facility] to see if they are available, pt and agreeable to this. SW explained to pt and if they discuss this further and decide that they would like to consider SNF, SW or CM can come back in to review further with them. Pt did ask if she goes home and decides she needs to go to a long-term what could she do. SW explained that she will have a qualifying stay for SNF under Medicare, so if needed, could call the long-term and they would be able to assist pt in getting in from home. For now however, pt would like to stay with the plan of home w/home health. SW let CM know and she will look into setting up home health and cost of antibiotics for pt. CLAU Marino, ELECTRONIC SECURITY SPECIALIST
--- NOTE | 2017-12-05 16:05 | PCM.PROGNOTE ---
Patient Problems: Active and Suspected Problems (Last Updated 09/04/17 @ 09:45 by Solange Harley) Pneumonia (Acute) Hemoptysis (Acute) CAP (community acquired pneumonia) (Acute) Subjective: Pt has had minimal improvement in her SOB and productive cough. She is now utilizing the IS and PEP therapy more frequently. No chills. Low fever overnight Tmax 100.3. Overall weak and fatigued. Pt plans to go home at [place]. She understands she will need Home Abx. She may need home PT. - Physical Exam General: Alert, Oriented x3, Cooperative HEENT: Atraumatic, PERRLA, EOMI, Normocephalic Neck: Supple, No JVD, Negative Carotid Bruits Lungs: Rales - throughout, Rhonchi - throughout Cardiovascular: Regular rate, No murmurs Abdomen: Bowel Sounds Present, Soft, Non Tender Extremities: No edema, Capillary Refill Less than 3 Seconds Skin: No rashes, No breakdown Musculoskeletal: No Tenderness to Palpation of Joints or Extremities Neurological: Cranial nerves II-XII grossly intact Psych/Mental Status: Normal Affect, Appropriate, Alert and oriented to time, place, person, mood and affect Vital Signs Temp Pulse Resp BP Pulse Ox 98.4 F 78 18 149/68 H 97 12/05/17 12:08 12/05/17 14:59 12/05/17 14:59 12/05/17 12:08 12/05/17 14:00 Oxygen Flow Rate (L/min) 2 Oxygen Delivery Method Nasal Cannula Weight: 81.873 kg Body Mass Index (BMI) 34.1 Intake and Output for Last 24 Hours 12/03/17 12/04/17 12/05/17 23:59 23:59 23:59 Intake Total 899 / 899 3575 / 3575 450 / 450 Output Total 1000 / 1000 Balance 899 / 899 2575 / 2575 450 / 450 Microbiology Past 72 Hours 12/03/17 20:55 Gram Stain - Final Aspirate - Nose Nasopharyngeal Culture - Preliminary Staphylococcus aureus 12/03/17 14:30 Gram Stain - Final Sputum, Expectorated/Coughed Respiratory Culture - Final Pseudomonas aeroginosa Laboratory Tests Past 24 Hrs 12/05/17 12/05/17 12/05/17 05:25 05:25 05:25 WBC 14.3 H RBC 4.22 Hgb 11.2 L Hct 35.9 L MCV 85.1 MCH 26.5 L MCHC 31.2 L RDW 14.8 H RDW Differential 44.9 H Plt Count 258 MPV 10.5 PT 24.2 H INR 2.2 Sodium 143 Potassium 3.3 L Chloride 107 Carbon Dioxide 28.0 Anion Gap 8 BUN 7 Creatinine 0.76 Estim Creat Clear Calc 38.37 Est GFR (MDRD) Af Amer 95 Est GFR (MDRD) Non-Af 79 BUN/Creatinine Ratio 9.2 L Glucose 86 Calcium 8.7 Magnesium 12/05/17 05:25 WBC RBC Hgb Hct MCV MCH MCHC RDW RDW Differential Plt Count MPV PT INR Sodium Potassium Chloride Carbon Dioxide Anion Gap BUN Creatinine Estim Creat Clear Calc Est GFR (MDRD) Af Amer Est GFR (MDRD) Non-Af BUN/Creatinine Ratio Glucose Calcium Magnesium 2.0 Medical Necessity - Tobacco Use Smoking Status: Never smoker Tobacco Use: Secondhand Assessment/Plan Active and Suspected Problems (Last Updated 09/04/17 @ 09:45 by Solange Harley) Pneumonia (Acute) Hemoptysis (Acute) CAP (community acquired pneumonia) (Acute) 1. Severe sepsis 2/2 Acute CAP RML/RLL in pt with Bronchiectasis - minimal improvement. Pulm and ID following. Plan to continue Cefepime x 14 days as O/P. + Pseudomonas, Staph, MRSA screen neg. WBC improved. Blood cultures neg x 48 hours. Continue mucinex, PEP/IS, duonebs. Pt needs to remain afebrile for at least 24 hours. 2. Hemoptysis - monitor for drop in hgb. 3. Chronic Diastolic CHF - Resume lasix when appropriate. 4. CKDIII - appears to be near baseline. 5. Hypokalemia - replete. 6. s/p valve replacement - on coumadin - restart. 7. HTN - stable at this time - home meds. 8. HLD - on statin/zetia 9. Depression - home meds 10. Asthma - singulair, fluticasone. plans to follow up with Dr. Johnson as she no longer sees Dr. Gutierrez. 11. Hypokalemia - replete. DVT ppx: SCD, coumadin. This patient was seen by Chung Selby PA-C under the supervision of Doctor Roxanna.
[2017-12-05] MEDS: LORazepam 0.5 MG Tablet PO (20:46)
[2017-12-05] MEDS: Ezetimibe 10 MG Tablet PO (20:50)
[2017-12-05] MEDS: Pravastatin 80 MG Tablet PO (20:50)
[2017-12-06] VITALS (13 sets, daily range): BP systolic 128–159; BP diastolic 65–82; PULSE 84–106; RESP 16–20; TEMP 36.9–38.3; O2SAT 92–98
[2017-12-06 06:10] LABS: International Normalized Ratio 2.3; Prothrombin Time (Protime)PT. 25.2 SECONDS (11.7-14.9)
[2017-12-06 06:27] LABS: Anion Gap 6 (5-15); BUN 8 mg/dL (7-18); BUN/Creat Ratio 11.5 RATIO (10-20); Calcium,Total 8.8 mg/dL (8.5-10.1); Chloride 109 mmol/L (98-107); Creatinine, Serum 0.69 mg/dL (0.55-1.02); EST Glomerular Filtration Rate 88 mL/min (>60); Est Glom Filt Rate - Afr Amer 107 mL/min (>60); Estimated Creatinine Clearance 38.37 ml/min; Glucose 88 mg/dL (74-106); Potassium 3.8 mmol/L (3.5-5.1); Sodium Level 141 mmol/L (136-145)
[2017-12-06] MEDS: Ipratropium/Albuterol Sulfate 3 ML AMPUL.NEB INHALATION ×3 (07:35→15:30)
--- NOTE | 2017-12-06 08:23 | PCM.PROGNOTE ---
Patient Problems: Active and Suspected Problems (Last Updated 09/04/17 @ 09:45 by Solange Harley) Pneumonia (Acute) Hemoptysis (Acute) CAP (community acquired pneumonia) (Acute) Subjective: Patient was seen and examined. She is sitting up in the chair in no acute distress. Reports significant subjective improvement overall with her breathing and fatigue. Remains hemodynamically stable, intermittent low-grade temps. She was 98.4?F this morning. Maintaining appropriate saturations on room air. Objective: Recent lab and culture data reviewed. Sputum culture showed Pseudomonas, preliminary nasopharyngeal culture Staph aureus. Urine culture likely mixed contaminants. Blood cultures pending. Urine strep/Legionella antigens were negative, as well as influenza screening. Patient overall +5650 fluid balance. Echocardiogram December 2014 showed an estimated EF of 60%, mild to moderate concentric LVH, mildly enlarged left atrium and mild mitral annular calcification, trivial MVI and TVI, stable mechanical aortic valve prosthesis, trivial transvalvular insufficiency of the aortic valve, and RVSP at 29 mmHg. - Physical Exam General: Alert, Oriented x3, Cooperative, No apparent distress, - - Obese HEENT: Atraumatic, Normocephalic Oral: Moist Mucosa Neck: Supple, Trachea Midline Lungs: No wheeze, No rales, Diminished, - - Posterior rhonchi, significantly improved Cardiovascular: Regular rate, Regular Rhythm, Normal S1, Normal S2 Abdomen: Bowel Sounds Present, Soft, Non Tender, Non-Distended Extremities: No clubbing, No cyanosis, No edema Skin: - - No changes Neurological: Cranial nerves II-XII grossly intact, Neuro grossly intact Psych/Mental Status: Alert and oriented to time, place, person, mood and affect Vital Signs Temp Pulse Resp BP Pulse Ox 99.9 F H 92 18 147/76 H 94 12/06/17 01:51 12/06/17 01:51 12/06/17 01:51 12/06/17 01:51 12/06/17 02:00 Oxygen Flow Rate (L/min) 1 Oxygen Delivery Method Nasal Cannula Weight: 180 lb 7.985 oz Body Mass Index (BMI) 34.1 Intake and Output for Last 24 Hours 12/04/17 12/05/17 12/06/17 23:59 23:59 23:59 Intake Total 3575 / 3575 1936 / 1936 240 / 240 Output Total 1000 / 1000 Balance 2575 / 2575 1936 / 1936 240 / 240 Microbiology Past 72 Hours 12/03/17 20:55 Gram Stain - Final Aspirate - Nose Nasopharyngeal Culture - Preliminary Staphylococcus aureus 12/03/17 14:30 Gram Stain - Final Sputum, Expectorated/Coughed Respiratory Culture - Final Pseudomonas aeroginosa Laboratory Tests Past 24 Hrs 12/05/17 12/06/17 12/06/17 05:25 05:48 05:48 PT 25.2 H INR 2.3 Sodium 141 Potassium 3.8 Chloride 109 H Carbon Dioxide 26.0 Anion Gap 6 BUN 8 Creatinine 0.69 Estim Creat Clear Calc 38.37 Est GFR (MDRD) Af Amer 107 Est GFR (MDRD) Non-Af 88 BUN/Creatinine Ratio 11.5 Glucose 88 Calcium 8.8 Magnesium 2.0 Medical Necessity - Tobacco Use Smoking Status: Never smoker Tobacco Use: Secondhand Assessment/Plan Active and Suspected Problems (Last Updated 09/04/17 @ 09:45 by Solange Harley) Pneumonia (Acute) Hemoptysis (Acute) CAP (community acquired pneumonia) (Acute) RECOMMENDATIONS 1. Wean oxygen supplementation to keep saturations greater than 89% 2. Encourage aggressive incentive spirometer and Acapella, please reinforce. 3. Increase activity as tolerated, mobilize 4. Continue aerosols and antibiotics 5. Daily INR, monitor for additional hemoptysis 6. Await final culture results 7. Patient will require repeat CT chest in 6-8 weeks 8. Ambulatory pulse ox prior to discharge 9. Patient stable for discharge from pulmonary perspective, will follow-up in the office in 2 weeks with [facility] (transferring care from [facility]) IMPRESSIONS 1. Acute hypoxic respiratory insufficiency secondary to multifocal pneumonia with hemoptysis Infectious workup pending. Sputum growing Pseudomonas and preliminary nasopharyngeal cx showing Staph aureus. August sputum growing Pseudomonas and staph aureus, antibiotics were changed accordingly and ID consulted. Continues with intermittent low-grade temps. Recommend aggressive pulmonary toileting. Education again provided to patient on colonization of bacteria, importance of pulmonary hygiene, etc. Hemoptysis is possibly related to her infection, is persistent but improved. She is anticoagulated on Coumadin for mechanical AV replacement. Daily INR. Wean oxygen supplementation to keep saturations greater than 89%. She will require a repeat chest CT in 6-8 weeks to ensure resolution of pneumonia. Patient will follow up in the pulmonary clinic 2 weeks after discharge with [facility]. 5/9: Admits to not doing Acapella even though we discussed it at length yesterday. Did not think it was helping. Reinforced education. Patient agreeable to aggressive IS/Acapella. Discussed vest therapy, but still having hemoptysis-- I did observe old blood stained tissues in trash. Lungs sound worse today, may need to proceed with vest. Await ID consult. 12/06: Significant improvement today, less rhonchi and fatigue. ID following, on cefepime. Awaiting final [facility] culture. Plan for outpatient IV antibiotics, patient wishes to go home and have administer, however this may be a significant financial burden. Awaiting to hear from case management about cost. Possible SNF. 2. Self-reported asthma of unknown severity Does not appear to be an acute exacerbation at this time. Reports her last PFTs were in the summer 2016, this was completed at [facility] pulmonology Dr. Gutierrez's office. Records were requested. Continue aerosols. 3. Obesity/diastolic CHF//hypertension/hyperlipidemia/depression/hiatal and ventral hernia/chronic sinusitis Complicates care, management, recovery, and prognosis. Continue home medications per hospitalist recommendations. A sinus x-ray showed right maxillary sinus changes c/w chronic sinusitis, no acute disease detected. Does not appear to be in an acute heart failure exacerbation. Last echo 2014 RVSP at that time was 29 mmHg an EF of 60%. Thank you for the opportunity to participate in this patient's care, please do not hesitate to contact us with any further questions or concerns. This note was generated with [employer] dictation software. It may contain incorrect words, spelling, and punctuation that were not noted in checking the note before signing.
[2017-12-06] MEDS: guaiFENesin 1,200 MG Tablet 1200 MG PO (08:54)
[2017-12-06] MEDS: Ferrous Sulfate 325 MG Tablet PO (08:54)
[2017-12-06] MEDS: Pantoprazole Sodium 40 MG Tablet PO (08:54)
[2017-12-06] MEDS: Metoprolol(XL)Succ 50 MG Tablet PO (08:55)
[2017-12-06] MEDS: buPROPion (XL) 150 MG TABLET.XL PO (08:55)
[2017-12-06] MEDS: Montelukast 10 MG Tablet PO (08:55)
--- NOTE | 2017-12-06 10:26 | PN.ID_ITS ---
Patient Problems: Active and Suspected Problems (Last Updated 09/04/17 @ 09:45 by Solange Harley) Pneumonia (Acute) Hemoptysis (Acute) CAP (community acquired pneumonia) (Acute) Subjective: Feeling better, less SOB, off O2, no n/v. Did have one episode of diarrhea this AM. - Physical Exam General: Alert, Cooperative Lungs: Diminished, Rhonchi - improved Cardiovascular: Regular rate, Regular Rhythm, Murmur Abdomen: Soft, Non Tender, Non-Distended Skin: No rashes Vital Signs Temp Pulse Resp BP Pulse Ox 98.4 F 106 H 20 H 128/65 H 95 12/06/17 08:00 12/06/17 08:55 12/06/17 08:00 12/06/17 08:55 12/06/17 09:47 Oxygen Flow Rate (L/min) 1 Oxygen Delivery Method Room Air Weight: 81.873 kg Body Mass Index (BMI) 34.1 Intake and Output for Last 24 Hours 12/04/17 12/05/17 12/06/17 23:59 23:59 23:59 Intake Total 3575 / 3575 1936 / 1936 240 / 240 Output Total 1000 / 1000 Balance 2575 / 2575 1936 / 1936 240 / 240 Microbiology Past 72 Hours 12/03/17 20:55 Gram Stain - Final Aspirate - Nose Nasopharyngeal Culture - Preliminary Staphylococcus aureus 12/03/17 14:30 Gram Stain - Final Sputum, Expectorated/Coughed Respiratory Culture - Final Pseudomonas aeroginosa Laboratory Tests Past 24 Hrs 12/06/17 12/06/17 05:48 05:48 PT 25.2 H INR 2.3 Sodium 141 Potassium 3.8 Chloride 109 H Carbon Dioxide 26.0 Anion Gap 6 BUN 8 Creatinine 0.69 Estim Creat Clear Calc 38.37 Est GFR (MDRD) Af Amer 107 Est GFR (MDRD) Non-Af 88 BUN/Creatinine Ratio 11.5 Glucose 88 Calcium 8.8 Medical Necessity - Tobacco Use Smoking Status: Never smoker Tobacco Use: Secondhand Route of nutrition/ use of supplements: [] Nutritional Intake: [] IV Site: [] Murphy Catheter: [] - Assessment/Plan Antibiotics: [] Assessment/Plan: [] Active and Suspected Problems (Last Updated 09/04/17 @ 09:45 by Solange Harley) Pneumonia (Acute) Hemoptysis (Acute) CAP (community acquired pneumonia) (Acute) Pseudomonas pneumonia - improving. P/w severe sepsis, elevated fever/wbc/ lactate. No congestion or headache, so low suspicion for sinusitis. On cefepime, plan on 2 week course, stop date 12/18/17. Midline placed. will follow. D/w primary team, pulm, renal case manager. Rx written for labs and abx. ID follow-up prn.
--- NOTE | 2017-12-06 13:24 | CASEMGMT ---
Received call back from I for hart check on IV ATB. Estimated cost is $400. Patient updated and patient wishes to go home with IV ATB and C. CARLOS SINGER updated [facility] to set up delivery of IV ATB for dose at 9pm tonight. Patient agreeable to [facility]. Referral sent to [facility] and they are able to accept and see patient tonight. Patient's spouse is willing to learn IV ATB. CARLOS SINGER updated patient regarding discharge plans and acceptance with [facility]. Dr. Mcknight updated with IV ATB and C setup for tonight at home.
--- NOTE | 2017-12-06 16:05 | NURSING ---
pt ambulatory without o2-pox is 92%
[2017-12-06] MEDS: LORazepam 0.5 MG Tablet PO (16:19)
--- NOTE | 2017-12-06 17:15 | PCA ---
Home health called floor wanting the discharge summary, instructions and any medications she is going home with faxed to them before she leaves hospital. The doctor hasnt put the things they are looking for in the computer yet so said i would fax to [phone] as soon as I get them.. Then when she is discharged call the folding rules printing machine operator to talk to the home health care nurse who is interventional physiatrist so they can go see the patient when she gets home
--- NOTE | 2017-12-06 17:22 | CASEMGMT ---
Social Work Note Pt received call from Cristina in TCU that she has a bed available. KATIE placed a call back to Cristina to inform her that pt will be going home with [facility]. Plan: Discharge home with [facility] Vi Ji MSW, SEGMENT ASSEMBLER
--- NOTE | 2017-12-06 18:33 | PCM.DC ---
- Discharge Diagnoses Current Active Problems: Current Active and Chronic Problems (Last Updated 09/04/17 @ 09:45 by Solange Harley) Pneumonia (Acute) Hemoptysis (Acute) CAP (community acquired pneumonia) (Acute) You will use the following diet at home:: Other - Resume previous diet Your food should be the consistency of: Regular Your liquids should be the consistency of: Regular/Thin Discharge Activity: - - Avoid exposure to any strong smells such as bleach, cleaning products, strong colognes or perfumes, paint fumes and smoke of any kind. Avoid sudden exposure to cold air because this can cause bronchospasm. You may want to cover your mouth when you go outside in the winter. Avoid exposure to anyone who is sick with a cough or sore throat. Call your doctor if you observe: Fever of 101 or Higher, Inability to urinate, Inability to have a bowel movement, Shortness of breath Pending Tests on Discharge: Final blood cultures-preliminary is no growth after 48 hours Allergies/Adverse Reactions: Allergies Sulfa (Sulfonamide Antibiotics) Allergy (Verified 12/03/17 10:46) Swelling celecoxib [From Celebrex] Adverse Reaction (Severe, Verified 12/03/17 10:46) Unknown adhesive Adverse Reaction (Verified 12/03/17 10:46) blisters BLISTERS codeine Adverse Reaction (Verified 12/03/17 10:46) Itching levofloxacin [From Levaquin] Adverse Reaction (Verified 12/03/17 10:46) pain in legs and swelling PAIN IN LEG AND SWELLING lisinopril Adverse Reaction (Verified 12/03/17 10:46) cough oxycodone [Oxycodone] Adverse Reaction (Verified 12/03/17 10:46) Itching oxycodone HCl [From Percocet] Adverse Reaction (Verified 12/03/17 10:46) Itching AND MAKES HEAD FEEL FUNNY Penicillins Adverse Reaction (Verified 12/03/17 10:46) heart palpitations HEART PALPITATIONS prochlorperazine edisylate [From Compazine] Adverse Reaction (Verified 12/03/17 10:46) Low blood pressure prochlorperazine maleate [From Compazine] Adverse Reaction (Verified 12/03/17 10:46) Low blood pressure tramadol HCl [From Ultram] Adverse Reaction (Verified 12/03/17 10:46) Itching Medications to take at Discharge Ezetimibe [Zetia] 10 mg PO QHS 01/14/15 Pantoprazole Sodium [Protonix] 40 mg PO BID 01/14/15 Paroxetine HCl 20 mg PO BID 01/14/15 Pravastatin [Pravachol] 80 mg PO QHS 01/14/15 buPROPion XL [Wellbutrin Xl] 150 mg PO DAILY 11/15/15 Cyclobenzaprine [Flexeril] 10 mg PO BID PRN PRN 05/03/17 Ferrous Sulfate [Iron] 325 mg PO BID 05/03/17 Fluticasone/Vilanterol [Breo Ellipta 200-25 Mcg INH] 1 ea IH DAILY 05/03/17 Montelukast [Singulair] 10 mg PO QHS 05/03/17 Potassium Chloride [K-Dur] 20 meq PO DAILY 05/03/17 aspirin 81 mg chewable tablet 162 mg PO DAILY tab 09/04/17 lorazepam 0.5 mg tablet 0.5 mg PO BID PRN 09/04/17 metoprolol succinate ER 50 mg tablet,extended release 24 hr 50 mg PO DAILY tab 09/04/17 fluticasone 50 mcg/actuation nasal spray,suspension 50 mcg INTRANASAL BID 09/28/17 Albuterol IH (ProAir) [Proair Hfa] 2 puff INHALATION Q4H PRN PRN 12/03/17 Warfarin [Coumadin] 5 mg PO DAILY 12/03/17 Acetaminophen [Tylenol Tablet] 650 mg PO Q6H PRN PRN tablet 12/06/17 Furosemide [Lasix] 40 mg PO DAILY #0 12/06/17 Guaifenesin [Mucinex] 1,200 mg PO BID #30 tab 12/06/17 The following prescriptions were given: Guaifenesin [Mucinex] 1,200 mg PO BID #30 tab Primary Care Physician: Harley Cornejo MD [Primary Care Provider] - Please follow up with your Primary Care Physician in: 7-10 days Proposed Discharge Date: 12/06/17
--- NOTE | 2017-12-06 18:43 | DS.PCM_ITS ---
Discharge Date and Diagnosis Date of Admission: 12/03/17 Date of Discharge: 12/06/17 - Primary Discharge Diagnosis Active and Suspected Problems (Last Updated 09/04/17 @ 09:45 by Solange Harley) Severe sepsis (Acute) CAP (community acquired pneumonia) (Acute) - due to pseudomonas aeruginosa Hypoxemia (Acute) Hemoptysis (Acute) - Secondary Discharge Diagnosis Chronic Problems (Last Updated 09/04/17 @ 09:45 by Solange Harley) Anxiety (Chronic) Atherosclerotic heart disease of [place] coronary artery without angina pectoris (Chronic) Palpitations (Chronic) H/O aortic valve replacement (Chronic) PKE-Helvqajutz-Tcwvoi, 2003, Redo AVR 10/10 (#21 On-X mechanical valve) Nonspecific chest pain (Chronic) Aneurysm, thoracic aortic (Chronic) Nonrheumatic aortic valve regurgitation (Chronic) Fatigue (Chronic) S/P foot surgery (Chronic) S/P hysterectomy (Chronic) S/P sinus surgery (Chronic) x4 History of back surgery (Chronic) Hypertension (Chronic) Hyperlipidemia (Chronic) Depression (Chronic) Hiatal hernia (Chronic) Obesity (Chronic) CHF (congestive heart failure) (Chronic) Diastolic with ejection fraction 65%, June 2013 Status post cardiac catheterization October 2012 showing angiographically normal coronary arteries Aortic stenosis (Chronic) S/P AVR in February 2004 with Mitchell Hernandez; redo AVR in September 2013 with a # 21 O-X mechanical valve Asthma (Chronic) PFTs in June 2013 show a mild degree of obstruction non-reactive to bronchodilators Chronic sinusitis (Chronic) H/O Pseudomonas, 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 Decreased density in the left base. Patchy opacity at the right lower lobe which may represent an early/developing pneumonia. Right middle and lower lobe atelectasis with elevation of the right hemidiaphragm. Electronically Signed: Celio Simmons MD at 12:36 EDT , Service support , Chest CT 12/03/17 15:31 IMPRESSION: Patchy infiltrates of the right lung. Right lower lobe infiltrate/consolidation. Left lower lobe consolidation/atelectasis. Trace effusion bilaterally. Mild mediastinal adenopathy. Dilated ascending aorta. Fatty ventral hernia of the upper abdominal wall. Hiatal hernia. Electronically Signed: Jah Reese DO at 23:39 EDT Tel [phone], Service support , Sinuses X-Ray 12/03/17 19:30 IMPRESSION: Right maxillary sinus changes suspicious for chronic sinusitis. No acute sinus disease detected. Right frontal sinus hypoplasia Electronically Signed: Nat Robledo MD at 4:09 EDT , Service support , Microbiology 12/03/17 11:34 Blood Culture (Wb) - Anticubital Right Blood Culture - Final No growth in 5 days. 12/03/17 11:25 Blood Culture (Wb) - Left Forearm Blood Culture - Final No growth in 5 days. 12/03/17 20:55 Aspirate - Nose Gram Stain - Final 12/03/17 20:55 Aspirate - Nose Nasopharyngeal Culture - Final Staphylococcus aureus 12/03/17 14:30 Sputum, Expectorated/Coughed Gram Stain - Final 12/03/17 14:30 Sputum, Expectorated/Coughed Respiratory Culture - Final Pseudomonas aeroginosa 12/03/17 11:58 Urine, Clean Catch Urine Culture - Final Mixed Gram Pos & Gram Neg Org 12/03/17 11:58 Urine, Clean Catch Streptococcus pneumoniae Antigen (M - Final 12/03/17 11:58 Urine, Clean Catch Legionella Antigen - Final 12/03/17 11:35 Mucosa - Nasopharyngeal Influenza Types A,B Direct FA (SETH) - Final Dr. Dominic Vizcaino-infectious disease Dr. Jeremy Johnson-pulmonary medicine Operations: None Procedures: None Summary of Care Provided: The patient is a 71 year old F with a hx of asthma, admission to [facility] for pseudomonas aeruginosa and methicillin sensitive staph aureus pneumonia in Aug 2017, diastolic CHF, s/p valve replacement, obesity, hiatal hernia, HLD HTN and coronary artery disease with history of CABG who presented to the ED with a chief complaint of worsening of cough with SOB and hemoptysis. She had been sick for 5 days but, started feeling more ill the previous night. She was seen by her PCP for a routine checkup the previous week and was given prednisone because her doctor thought he heard something in her lung bases. She follows with Dr. Gutierrez for Pulmonology. She felt generally ill and began coughing more overnight. She stated there were globs of blood and yellow mucus. She was having fevers/chills and night sweats at home. She denied recent weight loss. She had SOB. She was hypoxic in the ER with RA sat at 88% and a RR of 24. She does not normally wear any O2 at home. She has no smoking hx. She denied CP, dizziness, body aches, LH, palp, sick contacts. She had nausea without v/d/abdominal pain and she denied dysuria. She was febrile in the emergency department with a temp of 100.4?F. Respiratory rate was 24 and she was tachycardic with a heart rate of 108. The white blood cell count was elevated at 14.7 with 93% neutrophils. Lactic acid was 2.8. CT scan of the chest showed extensive consolidation in the right lower lobe with some infiltrate in the right middle lobe as well. Auscultation of the lungs revealed coarse wheezing throughout with coarse crackles in the right base. She was admitted to the hospital with a diagnosis of severe sepsis secondary to community-acquired pneumonia, hypoxia and hemoptysis. She was started initially on Rocephin and azithromycin but following review of previous sputum cultures the antibiotic was changed to Zosyn and vancomycin. An MRSA nasal swab was negative for MRSA but nasal culture did grow methicillin sensitive staph aureus. Legionella and streptococcal antigens were negative and influenza was also negative. Blood cultures had no growth after 5 days. A urine culture was contaminated. Sputum culture once again grew pseudomonas aeruginosa. Sinus x-ray showed no acute sinus disease but did show right maxillary sinus changes suspicious for chronic sinusitis. Dr. Vizcaino was consulted to participate in management of antibiotics and Dr. Johnson was consulted from pulmonary as well. Dr. Johnson recommended aggressive pulmonary toileting and agreed with vancomycin and Zosyn until culture results could be obtained. Recommended a repeat chest x-ray in 4 to weeks post discharge to document resolution of the pneumonia. Dr. Vizciano had a low suspicion for acute sinusitis and recommended narrowing the antibiotic coverage to cefepime with a 2 week course of treatment planned. Midline was inserted. She remained therapeutic on warfarin for the duration of her hospital stay. White blood cell count decreased with antibiotics and she became afebrile. Pulse ox on room air on 12/06/2017 ranged from 93% to 98%. She was 92 % on room air with ambulation. She was discharged home on 12/06/2017 with home health care to administer cefepime for a total of 2 weeks. She was instructed to follow-up with Dr. Cornejo in 7-10 days. Prescriptions for cefepime and follow- up lab were written by Dr. Vizcaino. Auscultation of the lungs on the date of discharge revealed no rales and no wheezes. She had occasional coarse breath sounds posteriorly but overall was significantly improved. This note was generated with [employer] dictation software. It may contain incorrect words, spelling, and punctuation that were not noted in checking the note before signing. Discharge Activity: - - Avoid exposure to any strong smells such as bleach, cleaning products, strong colognes or perfumes, paint fumes and smoke of any kind. Avoid sudden exposure to cold air because this can cause bronchospasm. You may want to cover your mouth when you go outside in the winter. Avoid exposure to anyone who is sick with a cough or sore throat. Call your doctor if you observe: Fever of 101 or Higher, Inability to urinate, Inability to have a bowel movement, Shortness of breath Home Medications: Medications to take at Discharge Ezetimibe [Zetia] 10 mg PO QHS 01/14/15 Pantoprazole Sodium [Protonix] 40 mg PO BID 01/14/15 Paroxetine HCl 20 mg PO BID 01/14/15 Pravastatin [Pravachol] 80 mg PO QHS 01/14/15 buPROPion XL [Wellbutrin Xl] 150 mg PO DAILY 11/15/15 Cyclobenzaprine [Flexeril] 10 mg PO BID PRN PRN 05/03/17 Ferrous Sulfate [Iron] 325 mg PO BID 05/03/17 Fluticasone/Vilanterol [Breo Ellipta 200-25 Mcg INH] 1 ea IH DAILY 05/03/17 Montelukast [Singulair] 10 mg PO QHS 05/03/17 Potassium Chloride [K-Dur] 20 meq PO DAILY 05/03/17 aspirin 81 mg chewable tablet 162 mg PO DAILY tab 09/04/17 lorazepam 0.5 mg tablet 0.5 mg PO BID PRN 09/04/17 metoprolol succinate ER 50 mg tablet,extended release 24 hr 50 mg PO DAILY tab 09/04/17 fluticasone 50 mcg/actuation nasal spray,suspension 50 mcg INTRANASAL BID Albuterol IH (ProAir) [Proair Hfa] 2 puff INHALATION Q4H PRN PRN 12/03/17 Warfarin [Coumadin] 5 mg PO DAILY 12/03/17 Acetaminophen [Tylenol Tablet] 650 mg PO Q6H PRN PRN tablet 12/06/17 Furosemide [Lasix] 40 mg PO DAILY #0 12/06/17 Guaifenesin [Mucinex] 1,200 mg PO BID #30 tab 12/06/17 Following Prescrptions Were Given to Patient: Guaifenesin [Mucinex] 1,200 mg PO BID #30 tab Primary Care Physician: Harley Cornejo MD [Primary Care Provider] - Please follow up with your Primary Care Physician in: 7-10 days Disposition: Home with Home Health Minutes spent on discharge:: 40 Patient Condition:: Good Medical Necessity - Tobacco Use Smoking Status: Never smoker Tobacco Use: Secondhand Meaningful Use Info Meaningful Use Diagnoses (Choose all that apply): None applicable Code Visit Inpatient E&M: 30009 Disch Hosp
[2017-12-06] MEDS: 0.9% NaCl Peripheral Flush Adult/Peds IV (19:03)
[2017-12-06] MEDS: Acetaminophen 325 MG Tablet 650 MG PO (19:13)
--- NOTE | 2017-12-06 19:50 | NURSING ---
Discharge instructions Faxed to #[phone]. Home health called and asked to faxed.
--- NOTE | 2017-12-06 20:12 | NURSING ---
Sirena from [facility] called and needed the scprit for ATB faxed #[phone].
--- NOTE | 2017-12-07 16:04 | CASEMGMT ---
CARLOS SINGER Discharge Follow-up Phone Call: PRISCILLA: Roberto Strata: 4 Call Date: 12/07/17 Discharge Date: 12/06/17 Time of Call: 1600 Duration: 4 min Admitting Diagnosis: Pneumonia RN LUCRECIA called and spoke with patient to follow-up regarding recent hospitalization. Patient states she is doing ok. [facility] has been to the home and she is getting her IV ATBs well. Her is doing well learning to administer IV ATB. Patient has follow-up appt with PCP next week. Patient had no concerns with discharge instructions or medications.
== END 2017-12-06 19:25 | disposition home health service (06) | DRG 871 ==
LOC: ED 11:33 → MS3 12:48
PROVIDERS: Nurse Practitioner Family; Physician Assistant; Admitting Provider Internal Medicine; Emergency Provider Emergency Medicine; Family Provider Family Medicine; PCP Family Medicine; Visit Provider Internal Medicine
DX: A41.9 Sepsis, unspecified organism (principal); J15.1 Pneumonia due to Pseudomonas; R04.2 Hemoptysis; I50.30 Unspecified diastolic (congestive) heart failure; R09.02 Hypoxemia; R65.20 Severe sepsis without septic shock; Z79.01 Long term (current) use of anticoagulants; Z95.2 Presence of prosthetic heart valve; E78.5 Hyperlipidemia, unspecified; I71.2 Thoracic aortic aneurysm, without rupture; Z95.1 Presence of aortocoronary bypass graft; I25.10 Atherosclerotic heart disease of native coronary artery without angina pectoris; K44.9 Diaphragmatic hernia without obstruction or gangrene; I11.0 Hypertensive heart disease with heart failure
CPT/HCPCS: 36415; 70220; 71046; 71250; 80048; 80053; 83605; 83735; 85025; 85027; 85610; 85730; 87040; 87070; 87077; 87086; 87088; 87184; 87186; 87205; 87449; 87641; 87804; 93005; 94640; 94668; 97110; 97116; 97162; 97165; 97530; 99285; J7030; A4216

== ENCOUNTER 2017-12-10 14:50 | Outpatient (RCR) | payer MEDICARE, OTHER, SELFPAY ==
[2017-12-10 15:45] LABS: Hematocrit 39.3 % (37-47); Hemoglobin 12.2 g/dl (12.0-15.0); Mean Corpuscular Volume 83.6 fL (81-99); Mean Platelet Vol. 10.2 fl (6.2-12.0); Platelet Count 461 K/mm3 (150-450); RBC Distribution Width CV 14.5 % (11.6-14.6); RBC Distribution Width SD 44.5 fl (35.1-43.9); White Blood Count 7.8 K/mm3 (4.4-11.0)
[2017-12-10 15:49] LABS: Scan Indicated on CBC? Y/N NO
[2017-12-10 15:52] LABS: Anion Gap 6 (5-15); BUN 12 mg/dL (7-18); BUN/Creat Ratio 13.1 RATIO (10-20); Calcium,Total 8.9 mg/dL (8.5-10.1); Chloride 102 mmol/L (98-107); Creatinine, Serum 0.91 mg/dL (0.55-1.02); EST Glomerular Filtration Rate 64 mL/min (>60); Est Glom Filt Rate - Afr Amer 78 mL/min (>60); Glucose 103 mg/dL (74-106); Potassium 3.6 mmol/L (3.5-5.1); Sodium Level 139 mmol/L (136-145)
== END 2017-12-27 23:59 ==
LOC: HHLAB 14:50
PROVIDERS: Family Provider Family Medicine; PCP Family Medicine; Visit Provider Internal Medicine Infectious Disease
DX: Z95.2 Presence of prosthetic heart valve (principal); E87.6 Hypokalemia
CPT/HCPCS: 80048; 85027

== ENCOUNTER → 2017-12-14 10:23 | Outpatient (CLI) | payer MEDICARE, OTHER, SELFPAY | PROVIDERS: Family Provider Family Medicine; PCP Family Medicine; Visit Provider Internal Medicine Infectious Disease | DX: R65.20 Severe sepsis without septic shock (principal); J15.1 Pneumonia due to Pseudomonas | CPT/HCPCS: 99152; 99153; 99211; G0463 ==

== ENCOUNTER 2017-12-17 11:55 | Outpatient (RCR) | payer MEDICARE, OTHER, SELFPAY ==
[2017-12-17 12:39] LABS: Anion Gap 8 (5-15); BUN 20 mg/dL (7-18); Calcium,Total 9.3 mg/dL (8.5-10.1); Chloride 103 mmol/L (98-107); Creatinine, Serum 1.05 mg/dL (0.55-1.02); EST Glomerular Filtration Rate 55 mL/min (>60); Est Glom Filt Rate - Afr Amer 66 mL/min (>60); Glucose 88 mg/dL (74-106); Potassium 3.8 mmol/L (3.5-5.1); Sodium Level 139 mmol/L (136-145)
[2017-12-17 12:51] LABS: Hematocrit 40.5 % (37-47); Hemoglobin 12.8 g/dl (12.0-15.0); Mean Corp Hgb Conc 31.6 g/gl (32-36); Mean Corpuscular Hgb 26.3 pg (27.0-32.0); Mean Corpuscular Volume 83.3 fL (81-99); Mean Platelet Vol. 10.9 fl (6.2-12.0); Platelet Count 392 K/mm3 (150-450); RBC Distribution Width CV 14.6 % (11.6-14.6); RBC Distribution Width SD 43.6 fl (35.1-43.9); Red Blood Count 4.86 M/mm3 (4.2-5.4); White Blood Count 7.4 K/mm3 (4.4-11.0)
[2017-12-17 12:52] LABS: Scan Indicated on CBC? Y/N NO
== END 2017-12-27 23:59 ==
LOC: HHLAB 11:55
PROVIDERS: Family Provider Family Medicine; PCP Family Medicine; Visit Provider Internal Medicine Infectious Disease
DX: Z95.2 Presence of prosthetic heart valve (principal); E87.6 Hypokalemia
CPT/HCPCS: 80048; 85027

== ENCOUNTER → 2018-02-01 07:52 | Outpatient (CLI) | payer MEDICARE, OTHER, SELFPAY ==
[2018-02-01 08:17] LABS: International Normalized Ratio 2.5; Prothrombin Time (Protime)PT. 26.9 SECONDS (11.7-14.9)
== END ==
PROVIDERS: Family Provider Family Medicine; PCP Family Medicine; Visit Provider Family Medicine
DX: I35.2 Nonrheumatic aortic (valve) stenosis with insufficiency (principal); Z95.2 Presence of prosthetic heart valve
CPT/HCPCS: 36415; 85610

== ENCOUNTER → 2018-02-04 13:17 | Outpatient (CLI) | payer MEDICARE, OTHER, SELFPAY ==
--- NOTE | 2018-02-04 13:20 | CT_ITS ---
STUDY: CT CHEST WITHOUT CONTRAST REASON FOR EXAM: Female, 72 years old. Pneumonia, follow-up. Prior aortic valve repair, CABG, history of aortic stenosis. RADIATION DOSAGE (If Supplied By Facility): CTDIvol = ( 17.26 ) mGy, DLP = ( 625.50 ) mGycm TECHNIQUE: Transaxial imaging was performed without the administration of intravenous contrast material. Coronal and sagittal 2-D MPR Individualized dose optimization techniques were used for this CT. COMPARISON: CT chest 05/15/2016, 12/03/2017. CT chest 02/25/2013, 01/01/2015. FINDINGS: Supraclavicular: Stable small thyroid nodules. Body wall soft tissues: No acute process. Osseous structures: Multilevel cervical degenerative disease, thoracal lumbar scoliosis, chronic compression fracture of L1 previously seen on the study of 12/03/2017. Generalized osteopenia. Upper abdomen: No acute process. Right-sided adrenal nodule stable compared to imaging of January 2013. Mediastinum: Large sliding hiatal hernia containing the majority of the gastric fundus and a portion of the gastric body. Unremarkable esophagus. Small lymph nodes in the mediastinum are stable compared to imaging of 2012 with no acute lymphadenopathy. LUNGS: Infiltrate seen on the study of November 2017 have resolved, subtle residual patchy groundglass opacities present in the apical right lower lobe, and posterior segment right upper lobe, quite subtle residual. There is mild hyperlucency without specific features of centrilobular or paraseptal emphysema. There are no suspicious lesions. Heart: Mild cardiomegaly, no pericardial effusion. Aortic valve prosthetic. Mitral annulus calcifications. Three-vessel coronary calcifications. Aorta: Mild aneurysmal ectasia of the ascending aorta and proximal arch measuring up to 4.3 cm. At same level of prior imaging of 2012 greatest size was 4.2 cm. No significant change. Pulmonary arteries: Nondilated. CT/Chest without Contrast IMPRESSION: Pneumonia seen on the study of 12/03/2017 has almost completely resolved. Very minimal/subtle residual patchy groundglass opacities. Underlying lung parenchyma exhibits no suspicious features. Multiple chronic findings are detailed further within the body of the report. Electronically Signed: Andre Inge, at 9:12 EDT Tel , Service support ,
== END ==
PROVIDERS: Family Provider Family Medicine; PCP Family Medicine; Visit Provider Nurse Practitioner Acute Care
DX: J18.9 Pneumonia, unspecified organism (principal)
CPT/HCPCS: 71250

== ENCOUNTER → 2018-02-21 11:41 | Outpatient (CLI) | payer MEDICARE, OTHER, SELFPAY ==
[2018-02-21 12:06] LABS: International Normalized Ratio 2.1; Prothrombin Time (Protime)PT. 23.9 SECONDS (11.7-14.9)
== END ==
PROVIDERS: Family Provider Family Medicine; PCP Family Medicine; Visit Provider Family Medicine
DX: I35.2 Nonrheumatic aortic (valve) stenosis with insufficiency (principal)
CPT/HCPCS: 85610

== ENCOUNTER → 2018-02-22 11:16 | Outpatient (CLI) | payer MEDICARE, OTHER, SELFPAY | PROVIDERS: Family Provider Family Medicine; PCP Family Medicine; Visit Provider Internal Medicine Critical Care Medicine | DX: J45.909 Unspecified asthma, uncomplicated (principal) | CPT/HCPCS: 87070; 87077; 87186; 87205 ==

== ENCOUNTER → 2018-03-18 12:27 | Outpatient (CLI) | payer MEDICARE, OTHER, SELFPAY | PROVIDERS: Family Provider Family Medicine; PCP Family Medicine; Visit Provider Nurse Practitioner Acute Care | DX: R05 Cough (principal) | CPT/HCPCS: 87070; 87077; 87186; 87205 ==

== ENCOUNTER → 2018-04-16 13:16 | Outpatient (CLI) | payer MEDICARE, OTHER, SELFPAY ==
--- NOTE | 2018-04-17 08:41 | PFTCOMP ---
COMPLETE PULMONARY FUNCTION TEST INTERPRETATION Brief HPI: Patient is a 72 year old female, currently under the care of Dr. Johnson, who presents to [facility] for complete pulmonary function tests secondary to diagnosis of asthma. Respiratory therapist reports good effort and reproducible results. Interpretation: Forced expiration spirometry shows no large airways obstructive ventilatory defect with an FEV1 of 71% predicted. There is no significant bronchodilator response by ATS criteria. Spirograms are of good quality and plateau normally. The respiratory flow volume loop shows a normal pattern. Lung volumes by body plethysmography show a normal total lung capacity at 3.65 L, 87% predicted. All other lung volumes are within normal limits. Diffusion capacity by carbon monoxide is normal at 97% predicted. The airway resistance is normal. Compared to previous pulmonary function tests from 04/09/2012, there has been a significant reduction in lung volumes, but improved DLCO. Impression: These pulmonary function tests are within normal limits. There has been significant changes compared to previous study.
== END ==
PROVIDERS: Family Provider Family Medicine; PCP Family Medicine; Visit Provider Internal Medicine Critical Care Medicine
DX: J45.909 Unspecified asthma, uncomplicated (principal)
CPT/HCPCS: 94060; 94726; 94729

== ENCOUNTER → 2018-04-29 11:24 | Outpatient (CLI) | payer MEDICARE, OTHER, SELFPAY ==
[2018-05-01 20:08] LABS: Alternaria alternata <0.10 kU/L (Class 0); Bermuda Grass <0.10 kU/L (Class 0); Bluegrass, Kentucky <0.10 kU/L (Class 0); Cat Hair/Dander, Standard <0.10 kU/L (Class 0); D farinae Mite <0.10 kU/L (Class 0); D pteronyssinus <0.10 kU/L (Class 0); Dog Epithelia <0.10 kU/L (Class 0); Elm, American White <0.10 kU/L (Class 0); Oak, White <0.10 kU/L (Class 0); Plantain, English <0.10 kU/L (Class 0); Ragweed, Short/Common <0.10 kU/L (Class 0)
[2018-05-02 13:30] LABS: Mouse Urine <0.10 kU/L (Class 0)
[2018-05-03 03:07] LABS: Aspirgillus flavus Negative (Neg:<1:1); Aspirgillus fumigatus Negative (Neg:<1:1); Aspirgillus niger Negative (Neg:<1:1)
[2018-05-03 08:50] LABS: Immunoglobulin E 6 IU/mL (0-100)
== END ==
PROVIDERS: Family Provider Family Medicine; PCP Family Medicine; Referring Provider Nurse Practitioner Acute Care; Visit Provider Nurse Practitioner Acute Care
DX: J45.909 Unspecified asthma, uncomplicated (principal)
CPT/HCPCS: 36415; 82785; 86003; 86606

== ENCOUNTER → 2018-05-08 13:22 | Outpatient (CLI) | payer MEDICARE, OTHER, SELFPAY ==
--- NOTE | 2018-05-08 13:24 | BI_ITS ---
MAMMOGRAPHY - BILATERAL DIAGNOSTIC REASON FOR EXAM: Female, 72 years old. Left lump 3 weeks ago upper abdomen below intramammary fold but now gone for patient as documented by senior nuclear medicine technologist. Right breast lump above breast with marker. PERTINENT HISTORY: Heart surgery 2013. TECHNIQUE: Digital examination. Mediolateral oblique (MLO) and craniocaudad (CC) views of both breasts were obtained. Additional right true lateral and right CC/MLO spot compression views in the area of clinical concern were obtained including radiopaque triangular marker. CAD: 1 category performed COMPARISON: 06/27/2017, 06/19/2016. FINDINGS: Breast Composition: The breasts are heterogeneously dense, which may obscure small masses. Scattered benign calcifications are seen. No dense spiculated dominant masses or suspicious microcalcification cluster are identified. No new architectural distortion, asymmetric density, adenopathy, skin thickening or nipple retraction identified. [place] radiopaque marker overlies the right pectoralis muscle and shows no underlying mass density or abnormal microcalcification cluster. There has been no significant change identified since the prior study. IMPRESSION: Probably benign mammographic findings. ASSESSMENT CATEGORY: BIRADS Category 3: Probably Benign - Short-Interval Follow-up Suggested. A letter regarding these results will be sent to the patient by the facility within 30 days. FOLLOW UP RECOMMENDATION: Recommend right mammogram in 6 months for short-term interval follow-up of probably benign findings. Negative mammographic results should not deter biopsy as a palpable lesion if present should be followed based on clinical grounds and biopsy performed if clinically persistent for 3 months or increasing size. Approximately 10% of breast cancers are not detected by mammography. A normal mammogram should not delay biopsy of a clinically suspicious abnormality. Dense breast tissue may obscure neoplasm. Electronically Signed: Dominic Pedraza, at 16:02 EDT Tel , Service support , BI/DIAG MAMM W/CAD, BILAT
--- NOTE | 2018-05-08 13:25 | US_ITS ---
STUDY: ULTRASOUND BREAST - RIGHT REASON FOR EXAM: Female, 72 years old. Right breast lump above breast with marker. Please see bilateral diagnostic mammogram report same day 05/08/2018 for additional details. TECHNIQUE: Axial and longitudinal images of the RIGHT breast were performed with a high resolution ultrasound transducer. COMPARISON: Right breast ultrasound 07/10/2017. Correlation mammograms 05/08/2018, 06/27/2017 and 06/19/2016. FINDINGS: RIGHT Breast: There is a lesion in the upper Outer quadrant/supraclavicular region. The lesion measures 2.0 x 0.9 x 1.1 cm. Clock notation: 1 o'clock position. Distance from nipple: 25 cm. Posterior Enhancement: No Posterior Shadowing: No Margins: Smooth and sharply demarcated. Echogenicity: Heterogeneous predominantly isoechoic. Compression effect on Shape: No change US/Breast Limited Unilateral IMPRESSION: Probably benign finding of a right breast superior upper outer quadrant/supraclavicular lymph node. ASSESSMENT CATEGORY: BIRADS Category 3: Probably Benign - Short-Interval Follow-up Suggested. A letter regarding these results will be sent to the patient by the facility within 30 days. RECOMMENDATION: Right mammogram and right breast targeted ultrasound in 6 months to ensure stability of probably benign findings with short-term interval follow-up. Electronically Signed: Dominic Milo, at 16:08 EDT Tel , Service support ,
== END ==
PROVIDERS: Family Provider Family Medicine; PCP Family Medicine; Referring Provider Family Medicine; Visit Provider Family Medicine
DX: N64.9 Disorder of breast, unspecified (principal); N63.0 Unspecified lump in unspecified breast
CPT/HCPCS: 76642; 77062; 77066; G0279

== ENCOUNTER → 2018-05-23 11:30 | Outpatient (CLI) | payer MEDICARE, OTHER, SELFPAY ==
--- NOTE | 2018-05-23 11:35 | RAD_ITS ---
STUDY: X-RAY CHEST REASON FOR EXAM: Female, 72 years old. Dyspnea and previous pneumonia. TECHNIQUE: Frontal and lateral views of the chest. COMPARISON: 12/03/2017. FINDINGS: Elevated right hemidiaphragm, stable. Otherwise normal lung volumes. No infiltrates or effusions. Sternal cerclage wires and vascular clips are present from a prior sternotomy and coronary artery bypass graft procedure (CABG). Mild cardiomegaly. Normal mediastinum and chica. Normal visualized pulmonary arteries. Normal visualized aortic arch and descending thoracic aorta. Moderate hiatal hernia. There is a dextroscoliosis of the thoracic spine. There is degenerative osteoarthritis of the bilateral shoulders. There is no demonstrated abnormality of the visualized soft tissue structures of the upper abdomen. RAD/Chest PA and Lateral IMPRESSION: No acute chest disease. Moderate hiatal hernia. Electronically Signed: Berny Starr MD at 17:25 EDT , Service support ,
== END ==
PROVIDERS: Family Provider Family Medicine; PCP Family Medicine; Referring Provider Nurse Practitioner Acute Care; Visit Provider Nurse Practitioner Acute Care
DX: J18.9 Pneumonia, unspecified organism (principal)
CPT/HCPCS: 71046; 87070; 87077; 87186; 87205; 87804

== ENCOUNTER → 2018-06-07 11:41 | Outpatient (CLI) | payer MEDICARE, OTHER, SELFPAY ==
--- NOTE | 2018-06-07 12:16 | RAD_ITS ---
STUDY: X-RAY CHEST REASON FOR EXAM: Female, 72 years old. Shortness of breath/dyspnea. Cough. TECHNIQUE: PA and lateral views of the chest. COMPARISON: Comparison is made with prior study dated May 23, 2018. FINDINGS: Stable elevation of the right hemidiaphragm. Stable mild increased markings at the left lung base suggestive of either atelectasis and/or scarring. Sternal cerclage wires and vascular clips are present from a prior sternotomy and coronary artery bypass graft procedure (CABG). Normal mediastinum and chica. Normal visualized pulmonary arteries. There is atherosclerotic calcification of the aortic arch with tortuosity. Normal visualized thoracic spine. There is degenerative osteoarthritis of the bilateral shoulders. Moderate sized hiatal hernia. RAD/Chest PA and Lateral IMPRESSION: Stable increased interstitial markings at the left lung base suggestive of atelectasis and/or scarring. Electronically Signed: Jesse Abernathy MD at 12:35 EST Tel [phone], Service support ,
[2018-06-07 12:44] LABS: Absolute Lymphocyte Count 1.15 X10^3/ul (0.83-4.51); Absolute Neutrophil Count 17.4 X10^3/uL (2.0-7.7); Basophil# 0.03 X10^3/uL; Basophil% 0.2 % (0-1); Eosinophil# 0.06 X10^3/uL; Eosinophils% 0.3 % (0-5); Hematocrit 42.1 % (37-47); Hemoglobin 13.2 g/dl (12.0-15.0); Lymphocyte # 1.15 X10^3/ul (4.0); Lymphocyte % 5.8 % (19-41); Mean Corp Hgb Conc 31.4 g/gl (32-36); Mean Corpuscular Hgb 26.6 pg (27.0-32.0); Mean Corpuscular Volume 84.9 fL (81-99); Mean Platelet Vol. 10.7 fl (6.2-12.0); Monocyte# 0.99 X10^3/uL; Neutrophil # 17.42 X10^3/uL (2.7-7.7); Neutrophil % 88.4 % (47-70); Platelet Count 309 K/mm3 (150-450); RBC Distribution Width CV 14.9 % (11.6-14.6); RBC Distribution Width SD 44.8 fl (35.1-43.9); Red Blood Count 4.96 M/mm3 (4.2-5.4); White Blood Count 19.7 K/mm3 (4.4-11.0)
[2018-06-07 12:49] LABS: POSITIVE COUNT NO; POSITIVE DIFFERENTIAL NO; POSITIVE MORPHOLOGY NO
== END ==
LOC: LAB 12:40 → LABSPEC 12:41
PROVIDERS: Family Provider Family Medicine; PCP Family Medicine; Referring Provider Nurse Practitioner Acute Care; Visit Provider Nurse Practitioner Acute Care
DX: R05 Cough (principal)
CPT/HCPCS: 36415; 71046; 85025; 87040; 87070; 87077; 87186; 87205

== ENCOUNTER → 2018-08-12 18:35 | Outpatient (CLI) | payer MEDICARE, OTHER, SELFPAY ==
[2018-08-06 11:13] VITALS: BMI 32.8
== END ==
PROVIDERS: Family Provider Family Medicine; PCP Family Medicine; Referring Provider Otolaryngology; Visit Provider Otolaryngology
DX: J32.0 Chronic maxillary sinusitis (principal)
CPT/HCPCS: 87070; 87077; 87186; 87205

== ENCOUNTER → 2018-11-04 | Outpatient (CLI) | payer MEDICARE, OTHER, SELFPAY ==
[2018-09-16 10:55] VITALS: BMI 32.8
--- NOTE | 2018-11-04 08:56 | US_ITS ---
STUDY: ULTRASOUND BREAST - RIGHT REASON FOR EXAM: Female, 72 years old. Six-month follow-up examination. TECHNIQUE: Axial and longitudinal images of the RIGHT breast were performed with a high resolution ultrasound transducer. COMPARISON: Comparison is made with prior ultrasound of the right breast dated May 08, 2018. FINDINGS: RIGHT Breast: The upper outer aspect of the right breast was examined. There is homogeneous fibroglandular tissue. The previously seen abnormality in the subclavicular region is not seen at this time. US/Breast Limited Unilateral IMPRESSION: Unremarkable breast ultrasound of the upper outer quadrant of the right breast. ASSESSMENT CATEGORY: BIRADS Category 2: Benign. A letter regarding these results will be sent to the patient by the facility within 30 days. Electronically Signed: Jesse Abernathy, at 14:24 EDT , Service support ,
--- NOTE | 2018-11-04 08:56 | BI_ITS ---
MAMMOGRAPHY - UNILATERAL DIAGNOSTIC: RIGHT BREAST REASON FOR EXAM: Female, 72 years old. Occasional right breast lump. PERTINENT HISTORY: Non-contributory. TECHNIQUE: Digital unilateral breast rod (3D mammographic acquisition) in the CC and MLO projections. 2-D mediolateral oblique (MLO) and craniocaudad (CC) views of both breasts were obtained. CAD: Full Field Digital Mammography with Computer Added Detection was performed. COMPARISON: Comparison is made with prior mammogram dated May 08, 2018 and June 27, 2017. FINDINGS: Breast Composition: The breasts are heterogeneously dense, which may obscure small masses. Stable 0.9 cm x 2.4 cm nodule in the deep mid lateral aspect of the right breast. This is unchanged. Correlation with ultrasound is recommended. No other significant abnormalities are identified. There has been no significant change since the prior study. BI/DIAG MAMM W/CAD, UNILAT IMPRESSION: Stable unilateral diagnostic mammogram. Correlation with ultrasound of the right breast is recommended for further evaluation. ASSESSMENT CATEGORY: BIRADS Category 0: Incomplete. Need additional imaging evaluation. A letter regarding these results will be sent to the patient by the facility within 30 days. Approximately 10% of breast cancers are not detected by mammography. A normal mammogram should not delay biopsy of a clinically suspicious abnormality. Electronically Signed: Jesse Abernathy, at 11:03 EDT , Service support ,
== END | disposition home or self-care (01) ==
LOC: OPUS 08:54
PROVIDERS: Family Provider Family Medicine; PCP Family Medicine; Referring Provider Family Medicine; Visit Provider Family Medicine
DX: R92.8 Other abnormal and inconclusive findings on diagnostic imaging of breast (principal)
CPT/HCPCS: 76642; 77061; 77065; G0279

== ENCOUNTER → 2018-11-07 | Outpatient (CLI) | payer MEDICARE, OTHER, SELFPAY ==
[2018-11-07 09:33] VITALS: BMI 32.8
== END | disposition home or self-care (01) ==
LOC: LABSPEC 11:03
PROVIDERS: Family Provider Family Medicine; PCP Family Medicine; Referring Provider Nurse Practitioner Acute Care; Visit Provider Nurse Practitioner Acute Care
DX: J47.1 Bronchiectasis with (acute) exacerbation (principal)
CPT/HCPCS: 87070; 87077; 87186; 87205

== ENCOUNTER 2018-12-28 14:26 | Emergency (ER) | payer MEDICARE, OTHER, SELFPAY ==
[2018-12-11 13:16] VITALS: BMI 32.8
[2018-12-28 14:33] VITALS: BP 162/80; PULSE 89; RESP 16; TEMP 36.7; O2SAT 96; BMI 34.0
--- NOTE | 2018-12-28 14:53 | RAD_ITS ---
STUDY: X-RAY CHEST REASON FOR EXAM: Female, 73 years old. Chest pain TECHNIQUE: Frontal view of the chest COMPARISON: 06/07/2018 FINDINGS: There is stable elevation of the right hemidiaphragm with overlying atelectasis. The lungs are otherwise clear. There are no pleural effusions. There is no pneumothorax. The heart is stable in size. Again noted are sternotomy wires. RAD/Chest 1 View (Portable) IMPRESSION: No acute thoracic pathology. Electronically Signed: Angus Mondragon, at 15:20 EDT Tel , Service support ,
--- NOTE | 2018-12-28 14:53 | CT_ITS ---
STUDY: CT BRAIN WITHOUT CONTRAST REASON FOR EXAM: Female, 73 years old. Dizziness RADIATION DOSAGE (If Supplied By Facility): CTDIvol = ( 44.99 ) mGy, DLP = ( 745.49 ) mGycm TECHNIQUE: Transaxial CT imaging of the brain was performed without administration of intravenous contrast material. Individualized dose optimization techniques were used for this CT. COMPARISON: MRI dated 01/13/2016 FINDINGS: There is no acute bleed or infarct. There are stable chronic ischemic and atrophic changes. The ventricles are normal in configuration. There is no hydrocephalus. There is mucosal hypertrophy in the right maxillary sinus. The visualized paranasal sinuses are otherwise clear. The mastoid air cells are well aerated. There is no skull fracture. CT/Brain/Head without Contrast IMPRESSION: Stable chronic ischemic and atrophic changes. No acute intracranial abnormality. Right maxillary sinusitis. Electronically Signed: Angus Mondragon, at 16:01 EDT Tel , Service support ,
--- NOTE | 2018-12-28 14:53 | EKG12_ITS ---
Test Reason : DIZZINESS Blood Pressure : / mmHG Vent. Rate : 077 BPM Atrial Rate : 077 BPM P-R Int : 162 ms QRS Dur : 084 ms QT Int : 398 ms P-R-T Axes : -06 020 057 degrees QTc Int : 450 ms Normal sinus rhythm Normal ECG Confirmed by TICO MAC, JARRED ([id number]), fan mail editor GRISELDA SMALLS ([id number]) on 12/30/2018 11:44:57 AM Referred By: BONIFACIO Confirmed By:JARRED DOSHI MD
--- NOTE | 2018-12-28 14:54 | ED.VISSUMM ---
- ER Visit Summary Date of Service: 12/28/18 Chief Complaint: Dizziness, leg weakness History of Present Illness: The patient is a 73 F presents to the emergency department with dizziness. The patient states yesterday, she felt that she was in her normal state of health. She states she began to have some numbness in her right leg. States when she was walking, felt like it was going out. That went away. Today, she states that she is just not felt well. She describes some diffuse paresthesias on both sides of her body in her upper extremities. She is also been having the sensation of numbness of her tongue. She is never had anything like this before. The patient does have a history of aortic valve replacement with mechanical valve in 2013. She is on Coumadin. She denies any trouble with her speech. She denies any change in her vision. She denies any trauma. Physical Examination: Vital signs reviewed General: Well-nourished, well-developed Head: Normocephalic, atraumatic Eyes: Pupils equal and reactive, extraocular muscles intact Neck, supple, no lymphadenopathy Heart: Regular rate and rhythm Respiratory: No distress, clear bilaterally Abdomen: Soft, nontender, nondistended, no peritoneal signs Back: Nontender Extremities: Nontender, no edema, no cords Skin: Normal color no rash Neuro: Alert and oriented, no focal or lateralizing deficits Test Results: [] Emergency Department Course and Treatment: The patient presents with nonfocal symptoms. She had tingling in her leg, but the numbness in both arms. Her NIH is 0. However, the patient does have multiple risk factors. Stroke work-up was pursued. EKG shows sinus rhythm without acute ischemia. The patient's INR was therapeutic. Labs are unremarkable. Chest x-ray was negative. CT head shows chronic change, but no acute abnormality. On reevaluation, the patient is feeling improved. I did have a long conversation with the patient. Her symptoms do not seem focal. It involved both sides of the body. She does have risk factor for stroke, but again this does not seem like a stroke type syndrome. She wants to be discharged and follow-up and I feel this is reasonable. She was counseled on concerning symptoms and reasons to return. She will be discharged home. Treatment Plan: [] Disposition: Discharge Impression: 1. Dizziness 2. Paresthesias This note was generated with Dragon dictation software. It may contain incorrect words, spelling, and punctuation that were not noted in review of the chart prior to signing ED Disposition - Plan for ED Patient: Disposition: Home or Assisted Living Instructions: ED Dizziness [facility] Referrals: Harley Cornejo MD [Primary Care Provider] -
[2018-12-28 14:58] VITALS: BP 135/90; BP 145/88; BP 146/73; PULSE 76; PULSE 82
[2018-12-28 15:03] LABS: Absolute Lymphocyte Count 1.23 X10^3/ul (0.83-4.51); Absolute Neutrophil Count 5.8 X10^3/uL (2.0-7.7); Basophil# 0.03 X10^3/uL; Basophil% 0.4 % (0-1); Eosinophil# 0.16 X10^3/uL; Eosinophils% 2.1 % (0-5); Hematocrit 42.7 % (37-47); Hemoglobin 13.6 g/dl (12.0-15.0); Lymphocyte # 1.23 X10^3/ul (4.0); Lymphocyte % 15.9 % (19-41); Mean Corp Hgb Conc 31.9 g/gl (32-36); Mean Corpuscular Volume 84.9 fL (81-99); Mean Platelet Vol. 10.4 fl (6.2-12.0); Monocyte# 0.52 X10^3/uL; Monocyte% 6.7 % (0-10); Neutrophil # 5.78 X10^3/uL (2.7-7.7); Neutrophil % 74.8 % (47-70); Platelet Count 276 K/mm3 (150-450); RBC Distribution Width CV 14.5 % (11.6-14.6); RBC Distribution Width SD 44.7 fl (35.1-43.9); Red Blood Count 5.03 M/mm3 (4.2-5.4); White Blood Count 7.7 K/mm3 (4.4-11.0)
[2018-12-28 15:04] LABS: POSITIVE COUNT NO; POSITIVE DIFFERENTIAL NO; POSITIVE MORPHOLOGY NO
[2018-12-28 15:08] LABS: International Normalized Ratio 2.6; Prothrombin Time (Protime)PT. 28.1 SECONDS (11.7-14.9)
[2018-12-28 15:20] LABS: AST(SGOT) 21 U/L (15-37); Alanine Aminotransfer ALT/SGPT 19 U/L (13-56); Albumin, Serum 3.5 g/dL (3.2-5.0); Alkaline Phosphatase 83 U/L (45-117); Anion Gap 6 (5-15); BUN 16 mg/dL (7-18); BUN/Creat Ratio 13.9 RATIO (10-20); Calcium,Total 8.9 mg/dL (8.5-10.1); Chloride 106 mmol/L (98-107); Creatinine, Serum 1.15 mg/dL (0.55-1.02); EST Glomerular Filtration Rate 49 mL/min (>60); Est Glom Filt Rate - Afr Amer 59 mL/min (>60); Estimated Creatinine Clearance 32.39 ml/min; Globulin 3.6 g/dL (2.2-4.2); Glucose 76 mg/dL (74-106); Potassium 3.5 mmol/L (3.5-5.1); Protein, Total 7.1 g/dL (6.4-8.2); Sodium Level 142 mmol/L (136-145)
[2018-12-28 15:23] LABS: Bacteria 0 SEEN /hpf (None Seen); Mucous, Urine 0 SEEN /hpf (<or=2+)
[2018-12-28 15:34] VITALS: BP 141/61; PULSE 71; RESP 17; O2SAT 96
[2018-12-28 15:34] LABS: Color, Urine Yellow (Yellow); Glucose, Dipstick Normal (Normal); Ketone-Dipstick Negative (Negative); Leukocyte Esterase-Dipstick 25 /ul (Negative); Nitrite-Dipstick Negative (Negative); Occult Blood-Urine 10 /ul (Negative); Protein-Dipstick Negative (Negative); Specific Gravity, Urine 1.005 (1.002-1.030); Urine Bilirubin Dipstick Negative (Negative); Urine Clarity Sl. Cloudy (Clear); Urine Urobilinogen Normal (Normal); Urine pH 6.5 (5.0 - 8.0)
[2018-12-28 15:45] LABS: Red Blood Cells-Urine 0-5 SEEN /hpf (0-5); Squamous Epithelial Cells - UA 0-5 SEEN /hpf (5-10); White Blood Cells 0-5 SEEN /hpf (0-5)
[2018-12-28 16:07] VITALS: BP 134/62; PULSE 70; RESP 18; O2SAT 97
[2018-12-28 16:41] VITALS: BP 141/63; PULSE 68; RESP 22; O2SAT 97
== END 2018-12-28 16:43 | disposition home or self-care (01) ==
LOC: ED 15:49
PROVIDERS: Emergency Provider Emergency Medicine; Family Provider Family Medicine; PCP Family Medicine
DX: R42 Dizziness and giddiness (principal); R20.2 Paresthesia of skin; R20.0 Anesthesia of skin; Z79.01 Long term (current) use of anticoagulants; Z95.2 Presence of prosthetic heart valve; I25.10 Atherosclerotic heart disease of native coronary artery without angina pectoris; I10 Essential (primary) hypertension; E78.00 Pure hypercholesterolemia, unspecified
CPT/HCPCS: 70450; 71045; 80053; 81001; 84484; 85025; 85610; 93005; 99285; J7030; J7040; A4216

== ENCOUNTER → 2019-01-14 | Outpatient (CLI) | payer MEDICARE, OTHER, SELFPAY ==
[2018-07-29 13:51] VITALS: BMI 32.5
[2018-12-28 14:33] VITALS: BMI 34.0
--- NOTE | 2019-01-14 12:41 | ECHOD_ITS ---
Reason For Study: ASHD, AVR Procedure This was a 2D Doppler, Color Flow transthoracic echocardiogram. The study was technically difficult. Exam performed in department. Left Ventricle Normal LV size. Sigmoid septum. Left ventricular systolic function is normal. The estimated ejection fraction is 60 %. There is evidence of diastolic dysfunction. No regional wall motion abnormalities noted. Right Ventricle Normal RV size. Normal systolic function. Atria The left atrium is moderately enlarged. Normal right atrium. No doppler evidence for ASD. Mitral Valve There is moderate mitral annular calcification. Extension of the mitral annular calcification onto the mitral valve leaflet. Trivial mitral valve insufficiency. Tricuspid Valve Normal tricuspid valve. Trivial tricuspid valve insufficiency. Unable to estimate RV systolic pressure/pulmonary artery pressure due to technically difficult study. Aortic Valve Stable appearing mechanical aortic valve apparatus. Trivial transvalvular insufficiency of the aortic valve. Pulmonic Valve The pulmonic valve is not well visualized. Trivial pulmonic valve insufficiency. Great Vessels Mildly dilated aortic root. Pericardium/Pleural No pericardial effusion. MMode/2D Measurements & Calculations LVIDd: 4.1 cm IVSd: 1.2 cm LVOT diam: 2.0 cm LVIDs: 2.5 cm LVPWd: 1.2 cm LVOT area: 3.1 cm2 FS: 39.4 % Ao root diam: 4.0 cm LAV(MOD-bp): 71.7 ml LA A4 area: 23.5 cm2 LAV(MOD-bp) Indexed: 40.6 ml/m2 LAV(MOD-sp2): 69.0 ml LAV(MOD-sp4): 71.2 ml LA dimension(2D): 4.6 cm RA A4 area: 16.0 cm2 Doppler Measurements & Calculations MV E max stefan: 97.2 cm/sec Lat Peak E' Stefan: 8.5 cm/sec Med Peak E' Stefan: 4.8 cm/sec MV A max stefan: 97.7 cm/sec E/E' lat: 11.4 E/E' med: 20.3 MV E/A: 0.99 Ao V2 max: 207.0 cm/sec LV V1 max: 131.2 cm/sec SV(LVOT): 80.0 ml Ao max P.2 mmHg LV V1 max P.9 mmHg Ao V2 mean: 145.0 cm/sec LV V1 mean P.4 mmHg Ao mean P.2 mmHg LV V1 mean: 87.6 cm/sec Ao V2 VTI: 41.1 cm LV V1 VTI: 26.2 cm JOHANNA(I,D): 1.9 cm2 JOHANNA(V,D): 1.9 cm2 PA V2 max: 82.6 cm/sec Interpretation Summary The study was technically difficult. Left ventricular systolic function is normal. The estimated ejection fraction is 60 %. Sigmoid septum. The left atrium is moderately enlarged. There is moderate mitral annular calcification. Extension of the mitral annular calcification onto the mitral valve leaflet. Trivial mitral valve insufficiency. Trivial tricuspid valve insufficiency. Stable appearing mechanical aortic valve apparatus. Trivial transvalvular insufficiency of the aortic valve. Trivial pulmonic valve insufficiency. Unable to estimate RV systolic pressure/pulmonary artery pressure due to technically difficult study. There is evidence of diastolic dysfunction. Ordering Physician: Rory Mckay Referring Physician: Harley Cornejo Performed By: Yuliya Daniels RDCS
== END | disposition home or self-care (01) ==
LOC: CVS 12:40
PROVIDERS: Family Provider Family Medicine; PCP Family Medicine; Referring Provider Internal Medicine Cardiovascular Disease; Visit Provider Internal Medicine Cardiovascular Disease
DX: I25.10 Atherosclerotic heart disease of native coronary artery without angina pectoris (principal)
CPT/HCPCS: 93306

== ENCOUNTER 2019-01-28 14:08 | Emergency (ER) | payer MEDICARE, OTHER, SELFPAY ==
[2019-01-27 13:09] VITALS: BMI 32.6
[2019-01-28 14:09] VITALS: BP 133/102; PULSE 73; RESP 18; TEMP 36.6; O2SAT 95; BMI 33.0
--- NOTE | 2019-01-28 14:53 | CT_ITS ---
STUDY: CT CHEST/THORAX WITHOUT CONTRAST REASON FOR EXAM: Female, 73 years old. Hemoptysis. History of CHF, asthma, heart surgery. RADIATION DOSAGE (If Supplied By Facility): CTDIvol = ( 17.73 ) mGy, DLP = ( 550.83 ) mGycm TECHNIQUE: Transaxial imaging was performed without the administration of intravenous contrast material. Multiplanar coronal and sagittal images were reformatted. Individualized dose optimization techniques were used for this CT. COMPARISON: Portable AP upright chest x-ray December 28, 2018; CT chest without contrast February 04, 2018. FINDINGS: There is stable [id number] elevation of the right diaphragm. Stable minor subsegmental atelectasis in the inferior right lung base and in the medial basilar left lower lobe. There is no demonstrated pleural abnormality. There is stable borderline to mild cardiac enlargement. There are calcifications at the aortic and mitral valve annulus. There is an aortic valve prosthesis. Normal pericardium. There are calcifications of the coronary arteries. Sternal cerclage wires and vascular clips are present from a prior sternotomy. Stable, likely reactive on 0.75 x 1.05 x 1.25 cm precarinal lymph node. Normal hilar regions. Normal unenhanced pulmonary arteries. 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 There is stable atherosclerotic calcification of the aortic arch and proximal brachiocephalic arteries, and descending thoracic aorta. There are multi-level minor degenerative changes of the thoracic spine. There is a stable large hiatal hernia. Incidental note of stable interposition of the hepatic flexure anterior to the liver beneath the right diaphragm. Stable well-defined 2.15 x 1.65 x 1.5 cm relative low density nodule in the right adrenal gland consistent with an adenoma. CT/Chest without Contrast IMPRESSION: Stable unenhanced CT Chest examination since February 04, 2018, as described above. Electronically Signed: Drake Gomes MD at 16:04 EDT , Service support ,
[2019-01-28 15:12] VITALS: O2SAT 96
--- NOTE | 2019-01-28 16:17 | ED.DCSUM_ITS ---
History of Present Illness Chief Complaint: Cough Narrative: Patient presenting for evaluation secondary to an episode of hemoptysis. Patient reports that she has an underlying history of asthma. She sees a tray drier operator secondary to the fact that she had a very severe case of pneumonia. Patient reports that she had a change in her sputum today and a very small amount of blood in it. She states that she called the pulmonology office and they recommended that she come in for evaluation to the emergency [facility]. Patient denies any history of DVT or PE and she is anticoagulated secondary to the fact that she has an artificial heart valve. She denies any fevers or shortness of breath. She denies any recent feelings of illness. Review of systems otherwise negative. Past Medical History - Allergies and Home Meds Allergies/Adverse Reactions: Allergies Sulfa (Sulfonamide Antibiotics) Allergy (Verified 01/28/19 14:11) Swelling celecoxib [From Celebrex] Adverse Reaction (Severe, Verified 01/28/19 14:11) Unknown dextromethorphan [From Delsym] Adverse Reaction (Severe, Verified 01/28/19 14:11) hallucination adhesive Adverse Reaction (Verified 01/28/19 14:11) blisters BLISTERS codeine Adverse Reaction (Verified 01/28/19 14:11) Itching levofloxacin [From Levaquin] Adverse Reaction (Verified 01/28/19 14:11) pain in legs and swelling PAIN IN LEG AND SWELLING lisinopril Adverse Reaction (Verified 01/28/19 14:11) cough oxycodone [Oxycodone] Adverse Reaction (Verified 01/28/19 14:11) Itching oxycodone HCl [From Percocet] Adverse Reaction (Verified 01/28/19 14:11) Itching AND MAKES HEAD FEEL FUNNY Penicillins Adverse Reaction (Verified 01/28/19 14:11) heart palpitations HEART PALPITATIONS prochlorperazine edisylate [From Compazine] Adverse Reaction (Verified 01/28/19 14:11) Low blood pressure prochlorperazine maleate [From Compazine] Adverse Reaction (Verified 01/28/19 14:11) Low blood pressure tramadol HCl [From Ultram] Adverse Reaction (Verified 01/28/19 14:11) Itching Primary Care Physician: Harley Cornejo MD [Primary Care Provider] - Surgical History: hysterectomy, - - Aortic valve replacement mechanical after bovine, sinus surgery x4, back surgery, colonoscopy 2012 with polyps removed, foot surgery. Smoking Status: Never smoker - Family History Paternal Family History: Family History (Last Reviewed 12/11/18 @ 13:19 by Lorie Darden) Mother Arthritis CAD (coronary artery disease) Father Arthritis High cholesterol CAD (coronary artery disease) Sister Diabetes High cholesterol Hypertension Brother Diabetes High cholesterol Hypertension Family History: Reports: Heart Disease - age 76 Maternal Family History: Family History (Last Reviewed 12/11/18 @ 13:19 by Lorie Darden) Mother Arthritis CAD (coronary artery disease) Father Arthritis High cholesterol CAD (coronary artery disease) Sister Diabetes High cholesterol Hypertension Brother Diabetes High cholesterol Hypertension Family History: Reports: - - PD Sibling Family History: Family History (Last Reviewed 12/11/18 @ 13:19 by Lorie Darden) Mother Arthritis CAD (coronary artery disease) Father Arthritis High cholesterol CAD (coronary artery disease) Sister Diabetes High cholesterol Hypertension Brother Diabetes High cholesterol Hypertension Family History: Reports: Diabetes Review of Systems Respiratory: Reports: Cough, Sputum - Hemoptysis Physical Exam Vital Signs/Narrative: Vital Signs Temp Pulse Resp BP Pulse Ox 01/28/19 14:09 97.8 F 73 18 133/102 H 95 General: Well nourished, Well developed, No Acute Distress Head: Normocephalic, Atraumatic Eyes: Perrl, EOMI ENT: Moist mucous membranes, No rhinorrhea, - - Small amount of mucus in the pharynx, no evidence of blood Neck: Supple, Nontender Cardiovascular: Regular rate, Regular rhythm, - - Mechanical heart sounds Respiratory: No distress, CTA bilaterally, Chest nontender Abdomen: Soft, Nontender, Nondistended, Normal bowel sounds Back: Nontender, Normal Inspection Extremities: Nontender, No edema Skin: Normal color, No rash Neurological: Alert, Oriented x3, Cranial nerves II-XII grossly intact, Normal Strength, Normal Sensation Psychological: Normal affect, Normal Mood Diagnostic/Tx/Re-eval - Medical Decision Making Patient presented secondary to hemoptysis. CT of the chest was performed and showed no evidence of acute pathology. I do not believe that PE imaging is indicated as the patient is on Coumadin was therapeutic as recently as today. Patient was given reassurance and recommended that she follows up with her tray drier operator. ED Disposition - Plan for ED Patient: Disposition: Home or Assisted Living Diagnosis: Hemoptysis Instructions: Hemoptysis Referrals: Jeremy Johnson DO [STAFF PHYSICIAN] - 5-7 Days
[2019-01-28 16:31] VITALS: BP 138/80; PULSE 71; RESP 18; O2SAT 98
== END 2019-01-28 16:33 | disposition home or self-care (01) ==
PROVIDERS: Emergency Provider Emergency Medicine; Family Provider Family Medicine; PCP Family Medicine
DX: R04.2 Hemoptysis (principal); Z95.3 Presence of xenogenic heart valve; Z90.710 Acquired absence of both cervix and uterus; Z86.010 Personal history of colon polyps; Z88.8 Allergy status to other drugs, medicaments and biological substances; Z88.0 Allergy status to penicillin; Z88.2 Allergy status to sulfonamides; J45.909 Unspecified asthma, uncomplicated
CPT/HCPCS: 71250; 99282

== ENCOUNTER → 2019-02-18 12:25 | Outpatient (CLI) | payer MEDICARE, OTHER, SELFPAY ==
[2019-01-28 14:09] VITALS: BMI 33.0
[2019-02-18 13:00] LABS: International Normalized Ratio 3.1; Prothrombin Time (Protime)PT. 32.5 SECONDS (11.7-14.9)
== END ==
PROVIDERS: Family Provider Family Medicine; PCP Family Medicine; Referring Provider Family Medicine; Visit Provider Family Medicine
DX: I35.2 Nonrheumatic aortic (valve) stenosis with insufficiency (principal)
CPT/HCPCS: 85610

== ENCOUNTER → 2019-05-12 12:16 | Outpatient (CLI) | payer MEDICARE, OTHER, SELFPAY ==
[2019-03-21 08:00] VITALS: BMI 32.7
--- NOTE | 2019-05-12 12:19 | BI_ITS ---
MAMMOGRAPHY - BILATERAL SCREENING REASON FOR EXAM: Female, 73 years old. Routine annual screening examination. PERTINENT HISTORY: Aunt with breast cancer. TECHNIQUE: Digital bilateral breast chetna (3D mammographic acquisition) in the CC and MLO projections. 2-D mediolateral oblique (MLO) and craniocaudad (CC) views of both breasts were obtained. CAD: Full Field Digital Mammography with Computer Added Detection was performed. COMPARISON: Comparison is made with prior examination November 04, 2018 and May 08, 2018. FINDINGS: Breast Composition: The breasts are heterogeneously dense, which may obscure small masses. Stable 2.2 cm x 2.2 cm nodule in the inferior deep lateral aspect of the right breast. Low density is seen within suggestive of fat. This is unchanged since prior examinations. No other significant abnormalities are identified. There has been no significant change since the prior study. BI/SCREEN MAMM (CAD) W/CHETNA BILAT IMPRESSION: Stable bilateral screening mammogram. Yearly follow-up mammogram recommended. (A) ASSESSMENT CATEGORY: BIRADS Category 2: Benign. A letter regarding these results will be sent to the patient by the facility within 30 days. Approximately 10% of breast cancers are not detected by mammography. A normal mammogram should not delay biopsy of a clinically suspicious abnormality. [id number] Electronically Signed: Jesse Abernathy, at 8:43 EDT , Service support ,
== END ==
PROVIDERS: Family Provider Family Medicine; PCP Family Medicine; Referring Provider Family Medicine; Visit Provider Family Medicine
DX: Z12.31 Encounter for screening mammogram for malignant neoplasm of breast (principal)
CPT/HCPCS: 77063; 77067

== ENCOUNTER → 2019-06-16 13:10 | Outpatient (CLI) | payer MEDICARE, OTHER, SELFPAY ==
[2019-03-21 08:00] VITALS: BMI 32.7
--- NOTE | 2019-06-16 13:29 | RAD_ITS ---
STUDY: X-RAY CHEST REASON FOR EXAM: Female, 73 years old. Cough and shortness of breath. TECHNIQUE: PA and lateral views of the chest. COMPARISON: Comparison is made with prior study dated December 28, 2018. FINDINGS: Elevation of the right hemidiaphragm. Mild increased markings at the left lung base suggestive of scarring. Blunting of the costophrenic angles posteriorly. Sternal cerclage wires are present from a prior sternotomy. Normal mediastinum and chica. Normal visualized pulmonary arteries. There is atherosclerotic calcification of the aortic arch with tortuosity. There is demineralization of the osseous structures. There is degenerative osteoarthritis of the bilateral shoulders. Large hiatal hernia. RAD/Chest PA and Lateral IMPRESSION: Stable examination. Mild increased markings at the left lung base suggestive of scarring. Electronically Signed: Jesse Abernathy, at 14:15 EST , Service support ,
[2019-06-16 15:07] LABS: Anion Gap 7 (5-15); BUN 18 mg/dL (7-18); BUN/Creat Ratio 14.5 RATIO (10-20); Calcium,Total 9.2 mg/dL (8.5-10.1); Chloride 104 mmol/L (98-107); Creatinine, Serum 1.24 mg/dL (0.55-1.02); EST Glomerular Filtration Rate 45 mL/min (>60); Est Glom Filt Rate - Afr Amer 54 mL/min (>60); Glucose 77 mg/dL (74-106); Potassium 3.9 mmol/L (3.5-5.1); Sodium Level 140 mmol/L (136-145)
[2019-06-16 15:17] LABS: BNP,B-Type NATRIURETIC PEPTIDE 96.5 pg/mL (0-100)
== END ==
PROVIDERS: Family Provider Family Medicine; PCP Family Medicine; Referring Provider Nurse Practitioner Acute Care; Visit Provider Nurse Practitioner Acute Care
DX: R06.02 Shortness of breath (principal)
CPT/HCPCS: 36415; 71046; 80048; 83880

== ENCOUNTER → 2019-07-01 20:10 | Outpatient (CLI) | payer MEDICARE, OTHER, SELFPAY ==
[2019-06-16 14:56] VITALS: BMI 32.7
[2019-06-23 10:20] VITALS: BMI 31.3
== END ==
PROVIDERS: Family Provider Family Medicine; PCP Family Medicine; Referring Provider Nurse Practitioner Acute Care; Visit Provider Nurse Practitioner Acute Care
DX: G47.33 Obstructive sleep apnea (adult) (pediatric) (principal)
CPT/HCPCS: 95810

== ENCOUNTER → 2019-07-25 14:04 | Outpatient (CLI) | payer MEDICARE, OTHER, SELFPAY ==
[2019-06-23 10:20] VITALS: BMI 31.3
[2019-07-25 14:20] LABS: International Normalized Ratio 2.7
== END ==
PROVIDERS: Family Provider Family Medicine; PCP Family Medicine; Referring Provider Family Medicine; Visit Provider Family Medicine
DX: I48.91 Unspecified atrial fibrillation (principal); Z95.2 Presence of prosthetic heart valve
CPT/HCPCS: 85610

== ENCOUNTER 2019-09-10 22:32 | Emergency (ER) | payer MEDICARE, OTHER, SELFPAY ==
[2019-08-13 11:26] VITALS: BMI 31.1
[2019-09-10 22:33] VITALS: BP 150/69; PULSE 86; RESP 24; TEMP 36.8; O2SAT 95; BMI 32.8
[2019-09-10 22:34] VITALS: BP 150/69; PULSE 86; RESP 24; TEMP 36.8; O2SAT 95
--- NOTE | 2019-09-10 22:46 | EKG12_ITS ---
Test Reason : SOB Blood Pressure : / mmHG Vent. Rate : 075 BPM Atrial Rate : 075 BPM P-R Int : 160 ms QRS Dur : 084 ms QT Int : 390 ms P-R-T Axes : 000 015 080 degrees QTc Int : 435 ms Normal sinus rhythm with sinus arrhythmia Cannot rule out Inferior infarct , age undetermined Abnormal ECG Confirmed by CHERELLE MAC, MARTIN ([id number]), art editor GARLAND WATSON ([id number]) on 09/12/2019 8:03:12 AM Referred By: STEPH Confirmed By:TOM VILLARREAL MD
--- NOTE | 2019-09-10 22:47 | ED.DCSUM_ITS ---
History of Present Illness Chief Complaint: Weakness Informant: Patient, Family Narrative: Patient has a chronic cough and comes in for that. She stated after dinner tonight it was worse. She normally produces mucus. This is not new for her. She has some chronic weakness. She does have chronic bronchiectasis of her lungs. She does see pulmonology for this. She is on Coumadin for history of aortic valve replacement. She stated she has not gained any weight to suggest fluid overload. She denies fevers or chills. She did get a flu shot. She does not think she has influenza. Patiently just recently finished a 10-day course of steroids a couple days ago. This was being treated for a possible temporal arteritis. She has had that in the past. They just treated her empirically. Those symptoms went away. She denies sore throat. Denies neck pain. Comes in for further evaluation. - Past Medical History (1) Allergic rhinitis Status: Acute (2) Chronic anticoagulation Status: Acute (3) Cough Status: Acute (4) Hemoptysis Status: Acute (5) Aneurysm, thoracic aortic Status: Chronic (6) Anxiety Status: Chronic (7) Asthma Status: Chronic (8) Atherosclerotic heart disease of [place] coronary artery without angina pectoris Status: Chronic Comment: Mild (9) Bronchiectasis Status: Chronic (10) Chronic diastolic heart failure Status: Chronic (11) Chronic sinusitis Status: Chronic Comment: H/O Pseudomonas, MRSA (12) Essential hypertension Status: Chronic (13) Fatigue Status: Chronic (14) GERD (gastroesophageal reflux disease) Status: Chronic (15) History of mechanical aortic valve replacement Status: Chronic Comment: Pernell, 2003, Redo AVR 10/10 (#21 On-X mechanical valve) (16) Hyperlipidemia Status: Chronic (17) Hypoxemia Status: Chronic (18) Nonrheumatic aortic valve regurgitation Status: Chronic (19) Nonspecific chest pain Status: Chronic (20) HERLINDA (obstructive sleep apnea) Status: Chronic (21) Obesity Status: Chronic (22) Palpitations Status: Chronic (23) Pseudomonas respiratory infection Status: Chronic Comment: History of recurrent pseudomonal infections in the past Past Medical History - Allergies and Home Meds Allergies/Adverse Reactions: Allergies Sulfa (Sulfonamide Antibiotics) Allergy (Verified 08/13/19 11:26) Swelling celecoxib [From Celebrex] Adverse Reaction (Severe, Verified 08/13/19:) Unknown dextromethorphan [From Delsym] Adverse Reaction (Severe, Verified 08/13/19:) hallucination adhesive Adverse Reaction (Verified 08/13/19) blisters BLISTERS codeine Adverse Reaction (Verified 08/13/19:) Itching levofloxacin [From Levaquin] Adverse Reaction (Verified 08/13/19:) pain in legs and swelling PAIN IN LEG AND SWELLING lisinopril Adverse Reaction (Verified 08/13/19:) cough oxycodone [Oxycodone] Adverse Reaction (Verified 08/13/19:) Itching oxycodone HCl [From Percocet] Adverse Reaction (Verified 08/13/19) Itching AND MAKES HEAD FEEL FUNNY Penicillins Adverse Reaction (Verified 08/13/19:) heart palpitations HEART PALPITATIONS prochlorperazine edisylate [From Compazine] Adverse Reaction (Verified 08/13/19:) Low blood pressure prochlorperazine maleate [From Compazine] Adverse Reaction (Verified 08/13/19:) Low blood pressure tramadol HCl [From Ultram] Adverse Reaction (Verified 08/13/19:) Itching Primary Care Physician: Harley Cornejo MD [Primary Care Provider] - Prior records reviewed: Yes Past Medical History: - - See problem list Surgical History: hysterectomy, - - 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 Lives: With Family Smoking Status: Never smoker Alcohol: None Drugs: None - Family History Paternal Family History: Family History (Last Reviewed 08/15/19 @ 14:00 by CHARLENE Minor) Mother Arthritis CAD (coronary artery disease) Father Arthritis High cholesterol CAD (coronary artery disease) Sister Diabetes High cholesterol Hypertension Brother Diabetes High cholesterol Hypertension Family History: Reports: Heart Disease - age 76 Maternal Family History: Family History (Last Reviewed 08/15/19 @ 14:00 by CHARLENE Minor) Mother Arthritis CAD (coronary artery disease) Father Arthritis High cholesterol CAD (coronary artery disease) Sister Diabetes High cholesterol Hypertension Brother Diabetes High cholesterol Hypertension Family History: Reports: - - PD Sibling Family History: Family History (Last Reviewed 08/15/19 @ 14:00 by CHARLENE Minor) Mother Arthritis CAD (coronary artery disease) Father Arthritis High cholesterol CAD (coronary artery disease) Sister Diabetes High cholesterol Hypertension Brother Diabetes High cholesterol Hypertension Family History: Reports: Diabetes Review of Systems General: Denies: Chills, Fever, Sweats Eyes: Denies: Visual changes - bilaterally, Diplopia ENT: Denies: Rhinorrhea, Sore throat Cardiovascular: Denies: Chest pain, Palpitations Respiratory: Reports: Dyspnea, Cough. Denies: Dyspnea on exertion Gastrointestinal: Denies: Abdominal pain, Nausea, Vomiting, Diarrhea, Melena, Hematochezia Genitourinary: Denies: Dysuria, Hematuria, Frequency Musculoskeletal: Denies: Back pain, Extremity Pain Skin: Denies: Rash, Wounds Neurological: Reports: Weakness. Denies: Headache, Numbness Physical Exam Vital Signs/Narrative: Vital Signs Temp Pulse Resp BP Pulse Ox 09/10/19 22:34 98.3 F 86 24 H 150/69 H 95 09/10/19 22:33 98.3 F 86 24 H 150/69 H 95 General: Well nourished, Well developed, No Acute Distress Head: Normocephalic, Atraumatic Eyes: Perrl, EOMI ENT: Moist mucous membranes, No rhinorrhea Neck: Supple, Nontender Cardiovascular: Regular rate, Regular rhythm, No murmurs Respiratory: No distress, CTA bilaterally, Chest nontender. Negative for: Rales, Rhonchi, Wheezing, Diminished, Retractions, Chest tenderness Abdomen: Soft, Nontender, Nondistended, Normal bowel sounds Back: Nontender, Normal Inspection Extremities: Nontender, No edema Skin: Normal color, No rash Neurological: Alert, Oriented x3, Cranial nerves II-XII grossly intact, Normal Strength, Normal Sensation Psychological: Normal affect, Normal Mood Diagnostic/Tx/Re-eval Impressions Chest X-Ray 09/10/19 23:05 IMPRESSION: 1. Elevation of the left hemidiaphragm with gas density in the left lung base that could represent hiatal hernia or bowel loops. 2. Underlying infiltrate/atelectasis in the left lung base is difficult to exclude. 3. Atelectatic changes in the right lung base. Electronically Signed: Raul Napier MD at 23:42 EST Tel , Service support , 09/10/19 23:05 Chest PA and Lateral [RAD] Stat 09/10/19 22:53 Mucosa - Nose Influenza Types A,B Direct FA ([facility]) - Final Laboratory Results 09/10/19 09/10/19 09/10/19 23:03 23:03 23:03 WBC 7.7 RBC 4.81 Hgb 11.4 L Hct 39.0 MCV 81.1 MCH 23.7 L MCHC 29.2 L RDW Std Deviation 45.4 H RDW Coeff of Loki 15.5 H Plt Count 289 MPV 9.7 Immature Gran % (Auto) 0.400 Neut % (Auto) 68.1 Lymph % (Auto) 19.3 Karnes % (Auto) 9.0 Eos % (Auto) 2.5 Baso % (Auto) 0.7 Absolute Neuts (auto) 5.2 Absolute Lymphs (auto) 1.48 Nucleated RBC % 0 PT 33.9 H INR 3.3 Sodium 142 Potassium 3.8 Chloride 108 H Carbon Dioxide 29.0 Anion Gap 5 BUN 25 H Creatinine 1.41 H Estim Creat Clear Calc 28.96 Est GFR (MDRD) Af Amer 47 L Est GFR (MDRD) Non-Af 39 L BUN/Creatinine Ratio 17.7 Glucose 104 Calcium 9.2 Troponin I < 0.015 - Medical Decision Making Patient resting comfortably without problem in the department. He does not appear in respiratory distress. Lab work EKG and chest x-ray obtained. EKG shows sinus rhythm at a rate of 75 with mild sinus arrhythmia. No acute ischemic findings. Lab work shows a mild anemia just above 11. Troponin is ne gative. Patient has a mild elevation in her creatinine at 1.4 up from 1.2. Chest x-ray shows chronic changes with a large left-sided hiatal hernia. This makes the left lower lung base difficult to evaluate with chest x-ray. Have a low suspicion for acute pneumonia. She is resting comfortably. She is not having significant cough here in the department. Her vital signs are stable. Influenza is negative. At this time I feel the patient can be discharged home to follow-up as an outpatient. ED Disposition - Plan for ED Patient: Diagnosis: Chronic cough Instructions: COUGH, Chronic, Uncertain Cause, (Adult) Referrals: Harley Cornejo MD [Primary Care Provider] -
--- NOTE | 2019-09-10 23:05 | RAD_ITS ---
STUDY: X-RAY CHEST REASON FOR EXAM: Female, 73 years old. Cough and weakness. TECHNIQUE: PA and lateral views of the chest. COMPARISON: 06/16/2019 FINDINGS: There again is elevation of the left hemidiaphragm. Gas density is seen in the left lung base that could represent bowel loop or large hiatal hernia. Underlying infiltrate in the left lung base cannot be excluded. There are mild atelectatic changes in the right lung base. There is blunting of the left costophrenic angle. Sternal cerclage wires are present from a prior sternotomy. The cardiac silhouette is prominent. Normal mediastinum and chica. Normal visualized pulmonary arteries. There is atherosclerotic calcification of the aortic arch with tortuosity. Stable bony structures. There is no demonstrated abnormality of the visualized soft tissue structures of the upper abdomen. RAD/Chest PA and Lateral IMPRESSION: 1. Elevation of the left hemidiaphragm with gas density in the left lung base that could represent hiatal hernia or bowel loops. 2. Underlying infiltrate/atelectasis in the left lung base is difficult to exclude. 3. Atelectatic changes in the right lung base. Electronically Signed: Raul Napier MD at 23:42 EST Tel , Service support ,
[2019-09-10 23:08] LABS: Absolute Lymphocyte Count 1.48 X10^3/uL (0.83-4.51); Absolute Neutrophil Count 5.2 X10^3/uL (2.0-7.7); Basophil# 0.05 X10^3/uL; Basophil% 0.7 % (0-1); Eosinophil# 0.19 X10^3/uL; Eosinophils% 2.5 % (0-5); Hemoglobin 11.4 g/dL (12.0-15.0); Lymphocyte # 1.48 X10^3/ul (4.0); Lymphocyte % 19.3 % (19-41); Mean Corp Hgb Conc 29.2 g/dL (32-36); Mean Corpuscular Hgb 23.7 pg (27.0-32.0); Mean Corpuscular Volume 81.1 fL (81-99); Mean Platelet Vol. 9.7 fl (6.2-12.0); Monocyte# 0.69 X10^3/uL; NRBC Flagged by Analyzer 0 % (0-5); Neutrophil # 5.21 X10^3/uL (2.7-7.7); Neutrophil % 68.1 % (47-70); Platelet Count 289 K/mm3 (150-450); RBC Distribution Width CV 15.5 % (11.6-14.6); RBC Distribution Width SD 45.4 fl (35.1-43.9); Red Blood Count 4.81 M/mm3 (4.2-5.4); White Blood Count 7.7 K/mm3 (4.4-11.0)
[2019-09-10 23:17] LABS: International Normalized Ratio 3.3; Prothrombin Time (Protime)PT. 33.9 SECONDS (11.7-14.9)
[2019-09-10 23:33] LABS: Anion Gap 5 (5-15); BUN 25 mg/dL (7-18); BUN/Creat Ratio 17.7 RATIO (10-20); Calcium,Total 9.2 mg/dL (8.5-10.1); Chloride 108 mmol/L (98-107); Creatinine, Serum 1.41 mg/dL (0.55-1.02); EST Glomerular Filtration Rate 39 mL/min (>60); Est Glom Filt Rate - Afr Amer 47 mL/min (>60); Estimated Creatinine Clearance 28.96 ml/min; Glucose 104 mg/dL (74-106); Potassium 3.8 mmol/L (3.5-5.1); Sodium Level 142 mmol/L (136-145)
[2019-09-11 00:08] VITALS: BP 112/57; PULSE 78; RESP 19; O2SAT 96
== END 2019-09-11 00:09 | disposition home or self-care (01) ==
PROVIDERS: Emergency Provider Emergency Medicine; PCP Family Medicine
DX: R05 Cough (principal); E66.9 Obesity, unspecified; E78.5 Hyperlipidemia, unspecified; F41.9 Anxiety disorder, unspecified; G47.33 Obstructive sleep apnea (adult) (pediatric); I11.0 Hypertensive heart disease with heart failure; I25.10 Atherosclerotic heart disease of native coronary artery without angina pectoris; I50.32 Chronic diastolic (congestive) heart failure; I71.2 Thoracic aortic aneurysm, without rupture; J45.909 Unspecified asthma, uncomplicated; K21.9 Gastro-esophageal reflux disease without esophagitis; Z79.01 Long term (current) use of anticoagulants; Z82.49 Family history of ischemic heart disease and other diseases of the circulatory system; Z88.0 Allergy status to penicillin; Z88.1 Allergy status to other antibiotic agents; Z88.2 Allergy status to sulfonamides; Z88.5 Allergy status to narcotic agent; Z88.6 Allergy status to analgesic agent; Z88.8 Allergy status to other drugs, medicaments and biological substances; Z90.710 Acquired absence of both cervix and uterus; Z95.3 Presence of xenogenic heart valve; Z86.14 Personal history of Methicillin resistant Staphylococcus aureus infection
CPT/HCPCS: 71046; 80048; 84484; 85025; 85610; 87804; 93005; 99284; A4216

== ENCOUNTER 2019-10-29 13:00 | Outpatient (RCR) | payer MEDICARE, OTHER, SELFPAY ==
--- NOTE | 2019-10-03 11:55 | HP.PTEVAL ---
Patient's Visit Information ELZA CHU is a 73 year old F referred to Physical Therapy by Harley Cornejo MD with a diagnosis of Neck Pain. Date of Evaluation: 10/03/19 Physical Therapist: Lindy Small DPT - Visit Plan Frequency: 2x /Week Duration: 4 Weeks Plan: US, POSTURE CORRECTION/STRENGTHENING, INSTRUCTION IN APPROPRIATE BODY MECHANICS AND ACTIVITY MODIFICATIONS. HARSHAL UE ROM, STRETCHING AND STRENGTHENING. HEP INSTRUCTION. - Subjective Findings: Patient reports that she has neck pain- she has had it her whole life but its getting worse as she gets older. Sometimes it hurts so severely that she can't do She usually does all of her own activities but has been having to ask for help- takes Tylenol and Flexeril and Heat and water helps in the shower. Pain is aggravated by reading, computer work- she does use a pillow to try to bring the book up towards her. Pain is located in the neck and then radiate down the upper traps and into the left arm- not normally past the elbow- but she did have one time when she had N/T in the fingers. 8/10 It went away laying down and using the heating pad. 010 Sleep: side sleeper- mostly 2 pillows- not disturbed. 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 Right hand dominate. Does have dizziness- not vertigo if she gets up to fast. Does notice her balance is a little off as well. Headaches- migraines but not very often anymore. Feels that her neck pain limits her 75% but is unsure if its the neck or SOB. X-rays taken last Sunday- unsure of the results. PMHX/Meds: scanned in chart. - Objective Sitting Posture/Standing Posture: POOR. FH,RS Active Correction of posture: better but is unable to maintain. Gait: no deviation noted- no AD. Strength: HARSHAL UE'S GROSSLY 4/5. Sensation: HARSHAL UE LIGHT TOUCH SENSATION INTACT AND SYMMETRICAL. Scapular Strength: poor. ROM: HARSHAL UE'S WFL AND NO INCREASED NECK PAIN WITH TESTING. Cervical Spine: WNL with pain SB bilaterally. Dural Signs: NEGATIVE HARSHAL UE'S. Palpation: TENDERNESS C56 REGION AND HARSHAL UPPER TRAP REGIONS ARE VERY TIGHT bilaterally. - Goals Goal 1:: Patient will be I with HEP and progression Goal Time Frame: 4-6 Weeks Goal 2:: Patient will maintain fair posture to demo increased scap s/s Goal Time Frame: 4-6 Weeks Goal 3:: Patient will report 2/10 pain for 1 week Goal Time Frame: 4-6 Weeks - Rehabilitation Potential Physical Therapy Diagnosis: Patient presents with hypomobility- she has decreased scap s/s and tight upper traps leading to poor posture and increased pain with ADL's. Rehabilitation Potential: Fair - Anticipated Interventions Patient/Client Instruction: Educate patient on: Benefits of Fitness Program Therapeutic Exercise to Include: Strength training, Balance training, Body mechanics, Postural training, Neuromotor development, Passive ROM, Active ROM, Scapular Strength/Stabilization For the Purpose of:: To improve muscle performance and motor function TENS: Yes Cryotherapy (ice pack, ice massage): Yes Thermo therapy (hot pack): Yes Ultrasound (thermal/non thermal): Yes Thank you for the opportunity to evaluate your patient. For Medicare and Medicare HMO plans, please review the plan of care and approve it. It will need to be FAXED BACK to us at [phone] for Medicare purposes. For Medicare only, by signing this I certify the plan of care. Please let me know if there are questions or concerns regarding this plan of care. Physician Signature: Date:
--- NOTE | 2019-10-29 13:25 | HP.PTDCSUM ---
It has been my pleasure to treat ELZA CHU referred by Harley Cornejo MD, with the diagnosis of Neck Pain for a total of 8 visit(s). Discharge Date: 10/29/19 Please see the following information for a summary of their discharge status. Subjective: She reports that she has been achy. Yesterday she did her exercises then she had a hard time moving after and the pain was into her shoulder blades. She got the heating pad and she felt a little better. This morning her neck feels funny. It is hard for her to do the band exercises as she does not have a place to put them. She is not sleeping well but that is normal for her. Pt reports that she has been better with her posture. neck pain Pain Intensity (Out of 10): 5 % Improvement: 20 Objective/Function: Good upright posture during PT session to day and witnessed her sitting with good posture in the waiting room. Goal 1:: Patient will be I with HEP and progression Goal Progress: Goal Met Goal 2:: Patient will maintain fair posture to demo increased scap s/s Goal Progress: Goal Met Goal 3:: Patient will report 2/10 pain for 1 week Goal Progress: Progressing Plan: DC PT at this time. Pt will call MD if she feels that she needs more PT. Discharge Comments: DC PT to HEP (previously given) If there are questions or concerns regarding this patient's physical therapy, please feel free to call me at [phone]. Thank you for the referral of this patient. Sincerely, Eunice Bright, MPT
== END 2019-10-29 19:00 | disposition home or self-care (01) ==
LOC: PT 13:00
PROVIDERS: PCP Family Medicine; Referring Provider Family Medicine; Visit Provider Family Medicine
DX: M54.2 Cervicalgia (principal)
CPT/HCPCS: 97035; 97110; 97162; 97164

== ENCOUNTER 2019-12-02 13:38 | Emergency (ER) | payer MEDICARE, OTHER, SELFPAY ==
[2019-12-02] VITALS (11 sets, daily range): BP systolic 140–182; BP diastolic 72–88; PULSE 69–92; RESP 15–21; TEMP 36.2–37.1; O2SAT 94–100; BMI 31.8
--- NOTE | 2019-12-02 14:15 | EKG12_ITS ---
Test Reason : SOB Blood Pressure : / mmHG Vent. Rate : 083 BPM Atrial Rate : 083 BPM P-R Int : 184 ms QRS Dur : 086 ms QT Int : 386 ms P-R-T Axes : 099 025 066 degrees QTc Int : 453 ms Normal sinus rhythm Normal ECG Confirmed by DEJA BAIG ([id number]), restaurant expeditor GARLAND WATSON ([id number]) on 12/04/2019 3:03:03 PM Referred By: GIANNI Confirmed By:DEJA BAIG
--- NOTE | 2019-12-02 14:24 | ED.DCSUM_ITS ---
- ER Visit Summary Date of Service: 12/02/19 Chief Complaint: Shortness of breath History of Present Illness: The patient is a 73 F presenting with shortness of breath. She states this started yesterday. Her shortness breath is worsened with exertion. She has a chronic cough which she says is slightly worse than usual. It is productive of yellow sputum. She denies fever. She has had mild rhinorrhea. She denies chest pain. She has mild epigastric pain and nausea. She denies vomiting or diarrhea. Denies urinary complaints. She has a mild headache. Denies numbness or weakness. She states she was dizzy earlier but did not pass out. She has had no recent travel. No sick contacts. No other complaints. Physical Examination: Vitals are stable. Patient is afebrile. Alert no acute distress. HEENT exam is unremarkable. Neck is supple. Lungs are clear and equal bilaterally. Heart is regular rate and rhythm. Abdomen is soft nontender nondistended. No guarding or rebound Extremities mild symmetric edema Skin is warm and dry. No focal neurologic deficit. Remainder of exam is unremarkable. Emergency Department Course and Treatment: EKG sinus rate of 83 with no acute ischemic changes. Chest x-ray shows hiatal hernia, clear lungs. CBC, chemistries unremarkable other than BUN 23, creatinine 1.21. Lipase is 120. Urinalysis unremarkable. Troponin is negative. BNP normal. Ambulatory pulse ox 92 to 94% on room air. On reevaluation, patient is feeling improved. Repeat troponin is negative. Patient would like to go home. She is advised to follow- up with her primary care physician. Advised return to the ED for any worsening complaints. Disposition: Discharge home Impression: Dyspnea, viral syndrome This note was generated with [employer] dictation software. It may contain incorrect words, spelling, and punctuation that were not noted in review of the chart prior to signing ED Disposition - Plan for ED Patient: Instructions: ED Upper Resp Infec No Abx Tx Referrals: Harley Cornejo MD [Primary Care Provider] -
--- NOTE | 2019-12-02 15:05 | RAD_ITS ---
STUDY: X-RAY CHEST REASON FOR EXAM: Female, 73 years old. C/O SOB SINCE YESTERDAY WORSE WITH EXERTION PER PT, C/O SORE THROAT PT HX OF CHRONIC COUGH. TECHNIQUE: Single AP portable view of the chest. COMPARISON: Comparison is made with prior study dated September 10, 2019. FINDINGS: EKG electrodes are seen. Stable elevation of the right hemidiaphragm. There is no demonstrated pleural abnormality. Sternal cerclage wires and vascular clips are present from a prior sternotomy and coronary artery bypass graft procedure (CABG). Cardiomegaly. Normal mediastinum and chica. Normal visualized pulmonary arteries. There is atherosclerotic calcification of the aortic arch with tortuosity. Normal visualized thoracic spine. Normal visualized ribs, clavicles, and shoulders. Large hiatal hernia. RAD/Chest 1 View (Portable) IMPRESSION: Large anal hernia. The lungs are clear. Electronically Signed: Jesse Abernathy, at 15:26 EDT , Service support ,
[2019-12-02 15:18] LABS: Mucous, Urine 0 SEEN /hpf (<or=2+); Red Blood Cells-Urine 0 SEEN /hpf (0-5)
[2019-12-02 15:26] LABS: Absolute Lymphocyte Count 0.89 X10^3/uL (0.83-4.51); Absolute Neutrophil Count 5.8 X10^3/uL (2.0-7.7); Basophil# 0.05 X10^3/uL; Basophil% 0.7 % (0-1); Eosinophil# 0.12 X10^3/uL; Eosinophils% 1.6 % (0-5); Hematocrit 39.3 % (37-47); Hemoglobin 11.5 g/dL (12.0-15.0); Lymphocyte # 0.89 X10^3/ul (4.0); Lymphocyte % 11.8 % (19-41); Mean Corp Hgb Conc 29.3 g/dL (32-36); Mean Corpuscular Hgb 23.6 pg (27.0-32.0); Mean Corpuscular Volume 80.7 fL (81-99); Mean Platelet Vol. 10.8 fl (6.2-12.0); Monocyte# 0.63 X10^3/uL; Monocyte% 8.4 % (0-10); NRBC Flagged by Analyzer 0 % (0-5); Neutrophil # 5.82 X10^3/uL (2.7-7.7); Neutrophil % 77.1 % (47-70); Platelet Count 318 K/mm3 (150-450); RBC Distribution Width SD 46.5 fl (35.1-43.9); Red Blood Count 4.87 M/mm3 (4.2-5.4); White Blood Count 7.5 K/mm3 (4.4-11.0)
[2019-12-02 15:39] LABS: Color, Urine Yellow (Yellow); Glucose, Dipstick Normal (Normal); Ketone-Dipstick Negative (Negative); Leukocyte Esterase-Dipstick 100 /ul (Negative); Nitrite-Dipstick Negative (Negative); Occult Blood-Urine Negative /ul (Negative); Protein-Dipstick Negative (Negative); Urine Bilirubin Dipstick Negative (Negative); Urine Clarity Sl. Cloudy (Clear); Urine Urobilinogen Normal (Normal)
[2019-12-02 15:45] LABS: ALB/GLOB Ratio 0.9 RATIO (0.9-2.4); AST(SGOT) 25 U/L (15-37); Alanine Aminotransfer ALT/SGPT 22 U/L (13-56); Albumin, Serum 3.4 g/dL (3.2-5.0); Alkaline Phosphatase 96 U/L (45-117); Anion Gap 3 (5-15); BUN 23 mg/dL (7-18); Calcium,Total 9.2 mg/dL (8.5-10.1); Chloride 108 mmol/L (98-107); Creatinine, Serum 1.21 mg/dL (0.55-1.02); EST Glomerular Filtration Rate 46 mL/min (>60); Est Glom Filt Rate - Afr Amer 56 mL/min (>60); Estimated Creatinine Clearance 33.74 ml/min; Globulin 3.9 g/dL (2.2-4.2); Glucose 96 mg/dL (74-106); Lipase 120 U/L (73-393); Protein, Total 7.3 g/dL (6.4-8.2); Sodium Level 141 mmol/L (136-145)
[2019-12-02 15:47] LABS: BNP,B-Type NATRIURETIC PEPTIDE 69.1 pg/mL (0-100)
[2019-12-02 15:54] LABS: Bacteria RARE /hpf (None Seen); Squamous Epithelial Cells - UA 0-5 SEEN /hpf (5-10); White Blood Cells 0-5 SEEN /hpf (0-5)
[2019-12-02 16:13] LABS: Prothrombin Time (Protime)PT. 22.6 SECONDS (11.7-14.9)
--- NOTE | 2019-12-02 18:43 | ED.DEP ---
ED Disposition - Plan for ED Patient: Instructions: ED Upper Resp Infec No Abx Tx Referrals: Harley Cornejo MD [Primary Care Provider] -
[2019-12-02] MEDS: Acetaminophen 325 MG Tablet 650 MG PO (19:06)
== END 2019-12-02 19:22 | disposition home or self-care (01) ==
LOC: ED 15:24
PROVIDERS: Emergency Provider Emergency Medicine; PCP Family Medicine
DX: B34.9 Viral infection, unspecified (principal); R06.00 Dyspnea, unspecified; K44.9 Diaphragmatic hernia without obstruction or gangrene; J45.909 Unspecified asthma, uncomplicated; I10 Essential (primary) hypertension; E78.00 Pure hypercholesterolemia, unspecified; I50.9 Heart failure, unspecified; Z95.3 Presence of xenogenic heart valve; R05 Cough; R51 Headache; R10.9 Unspecified abdominal pain; R42 Dizziness and giddiness; R10.13 Epigastric pain; R11.0 Nausea; J34.89 Other specified disorders of nose and nasal sinuses
CPT/HCPCS: 71045; 80053; 81001; 83690; 83880; 84484; 85025; 85610; 93005; 99284; A4216

== ENCOUNTER → 2020-02-26 07:17 | Outpatient (CLI) | payer MEDICARE, OTHER, SELFPAY ==
[2020-02-02 07:21] VITALS: BMI 31.6
[2020-02-04 11:30] VITALS: BMI 31.3
--- NOTE | 2020-02-27 11:19 | PFT ---
INTRODUCTION: The patient is a 74-year-old female that presents for pulmonary function studies secondary to a diagnosis of bronchiectasis. Respiratory therapy reports good patient effort. Bronchodilators were used during testing. INTERPRETATION: Forced expiration spirometry demonstrates the presence of a moderately severe large airways obstructive ventilatory defect. There was no significant response to aerosolized bronchodilators. Spirograms are of good quality and plateau gradually. Body plethysmography was performed and reveals lung volumes to be within normal limits. Diffusing capacity by single breath CO is reduced to 55% of predicted. When compared to previous pulmonary function studies from March 2018, there has been a 23% reduction in FEV1 and 41% reduction in DLCO. IMPRESSION: Irreversible moderately severe large airways obstructive ventilatory defect with preserved lung volumes and moderate reduction in diffusing capacity. There has been worsening in the patient's FEV1 and DLCO since 2017, as noted above.
== END ==
PROVIDERS: PCP Family Medicine; Referring Provider Internal Medicine Critical Care Medicine; Visit Provider Internal Medicine Critical Care Medicine
DX: J47.9 Bronchiectasis, uncomplicated (principal)
CPT/HCPCS: 94010; 94060; 94726; 94729

== ENCOUNTER → 2020-03-26 15:25 | Outpatient (CLI) | payer MEDICARE, OTHER, SELFPAY ==
[2020-02-04 11:30] VITALS: BMI 31.3
[2020-03-26 15:57] LABS: International Normalized Ratio 3.1; Prothrombin Time (Protime)PT. 31.8 SECONDS (11.7-14.9)
== END ==
PROVIDERS: PCP Family Medicine; Referring Provider Family Medicine; Visit Provider Family Medicine
DX: Z00.00 Encounter for general adult medical examination without abnormal findings (principal)
CPT/HCPCS: 85610

== ENCOUNTER 2020-04-08 20:50 | Emergency (ER) | payer MEDICARE, OTHER, SELFPAY ==
[2020-02-04 11:30] VITALS: BMI 31.3
[2020-04-08 20:51] VITALS: BP 150/100; PULSE 83; RESP 18; TEMP 36.4; O2SAT 97; BMI 31.5
--- NOTE | 2020-04-08 21:13 | ED.DCSUM_ITS ---
History of Present Illness Chief Complaint: Upper Extremity Injury Informant: Patient Onset: Month(s) Context: Sudden Onset Timing: Intermittent Quality: Pain Location: Left clavicle region, left proximal humerus and scapula Current Severity: Mild Maximum Severity: Severe Worsened by: Lying on her back, and certain movements Relieved by: Nothing specific Associated Symptoms: No associated symptoms Narrative: Patient is an elderly woman who presents with atraumatic left shoulder region discomfort that is been intermittent lasting 1 to several minutes over the past 2 months. There is no associated chest discomfort, diaphoresis, nausea or dyspnea. The episode today occurred at rest. She denies fever, chills or night sweats. She denies paresthesia, anesthesia or motor weakness. She denies clumsiness or difficulty using her left upper extremity/fingers. She denies headache. Prior similar symptoms: No Recent Illness/Hospitalization: No - Past Medical History (1) Chronic anticoagulation Status: Acute (2) Aneurysm, thoracic aortic Status: Chronic (3) Anxiety Status: Chronic (4) Asthma Status: Chronic (5) Atherosclerotic heart disease of chilkoot coronary artery without angina pectoris Status: Chronic Comment: Mild (6) Chronic diastolic heart failure Status: Chronic (7) Essential hypertension Status: Chronic (8) GERD (gastroesophageal reflux disease) Status: Chronic (9) History of mechanical aortic valve replacement Status: Chronic Comment: TCT-Brhlgrkqhc-Deyeed, 2003, Redo AVR 10/10 (#21 On-X mechanical valve) (10) Hyperlipidemia Status: Chronic (11) Obesity Status: Chronic Past Medical History - Allergies and Home Meds Allergies/Adverse Reactions: Allergies Sulfa (Sulfonamide Antibiotics) Allergy (Verified 04/08/20 20:53) Swelling celecoxib [From Celebrex] Adverse Reaction (Severe, Verified 04/08/20 20:53) Swelling dextromethorphan [From Delsym] Adverse Reaction (Severe, Verified 04/08/20 20:53) hallucination adhesive Adverse Reaction (Verified 04/08/20 20:53) blisters BLISTERS codeine Adverse Reaction (Verified 04/08/20 20:53) Itching levofloxacin [From Levaquin] Adverse Reaction (Verified 04/08/20 20:53) pain in legs and swelling PAIN IN LEG AND SWELLING lisinopril Adverse Reaction (Verified 04/08/20 20:53) cough oxycodone [Oxycodone] Adverse Reaction (Verified 04/08/20 20:53) Itching oxycodone HCl [From Percocet] Adverse Reaction (Verified 04/08/20 20:53) Itching AND MAKES HEAD FEEL FUNNY Penicillins Adverse Reaction (Verified 04/08/20 20:53) heart palpitations HEART PALPITATIONS prochlorperazine edisylate [From Compazine] Adverse Reaction (Verified 04/08/20 20:53) Low blood pressure prochlorperazine maleate [From Compazine] Adverse Reaction (Verified 04/08/20 20:53) Low blood pressure tramadol HCl [From Ultram] Adverse Reaction (Verified 04/08/20 20:53) Itching Primary Care Physician: Harley Cornejo MD [Primary Care Provider] - Prior records reviewed: Yes Surgical History: hysterectomy, - - 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 Lives: Spouse/ Significant Other Smoking Status: Never smoker Alcohol: None Drugs: None - Family History Paternal Family History: Family History (Last Reviewed 02/02/20 @ 09:06 by Luisa Johnson) Mother Arthritis CAD (coronary artery disease) Father Arthritis High cholesterol CAD (coronary artery disease) Sister Diabetes High cholesterol Hypertension Brother Diabetes High cholesterol Hypertension Family History: Reports: Heart Disease - age 76 Maternal Family History: Family History (Last Reviewed 02/02/20 @ 09:06 by Luisa Johnson) Mother Arthritis CAD (coronary artery disease) Father Arthritis High cholesterol CAD (coronary artery disease) Sister Diabetes High cholesterol Hypertension Brother Diabetes High cholesterol Hypertension Family History: Reports: - - PD Sibling Family History: Family History (Last Reviewed 02/02/20 @ 09:06 by Luisa Johnson) Mother Arthritis CAD (coronary artery disease) Father Arthritis High cholesterol CAD (coronary artery disease) Sister Diabetes High cholesterol Hypertension Brother Diabetes High cholesterol Hypertension Family History: Reports: Diabetes Review of Systems General: Denies: Chills, Fever, Malaise, Subjective, Sweats Eyes: Denies: Visual changes - bilaterally, Blurred Vision - bilaterally ENT: Denies: Rhinorrhea, Sore throat Cardiovascular: Denies: Chest pain, Palpitations Respiratory: Denies: Dyspnea, Cough, Sputum, Dyspnea on exertion Gastrointestinal: Denies: Abdominal pain, Nausea, Vomiting, Diarrhea Musculoskeletal: Reports: Extremity Pain. Denies: Myalgias, Arthralgias, Neck pain, Back pain, Swelling Skin: Denies: Rash, Wounds Neurological: Denies: Weakness, Parasthesia, Numbness Endocrine: Denies: Polyuria Hematologic: Denies: Easy bruising, Easy bleeding Physical Exam Vital Signs/Narrative: Vital Signs Temp Pulse Resp BP Pulse Ox 04/08/20 20:51 97.5 F L 83 18 150/100 H 97 Inital Vital Signs reviewed: Yes General: Well nourished, Well developed, Obese, Acute Distress - Is anxious. Head: Normocephalic, Atraumatic Eyes: Perrl, EOMI. Negative for: Pale conjunctiva, Scleral icterus ENT: Moist mucous membranes, No rhinorrhea, TM's clear Neck: Supple, Nontender, No lymphadenopathy Cardiovascular: Regular rate, Regular rhythm, No murmurs, Normal S1, Normal S2 Respiratory: No distress, CTA bilaterally, Chest nontender Extremities: Negative for: Nontender, No edema Skin: Negative for: Normal color, No rash Neurological: Alert, Oriented x3, Cranial nerves II-XII grossly intact, Normal Strength, Normal Sensation, Normal DTR Psychological: Normal affect Diagnostic/Tx/Re-eval Chest X-Ray - ED: Read by ED Physician, Read by Radiologist, - - The radiologist interpreted x-ray prior to my review and read. His interpretation was read. I am in agreement. Impressions Shoulder X-Ray 04/08/20 21:25 IMPRESSION: Mild degenerative change. No acute fracture or other significant bony pathology. Electronically Signed: Kenneth Sheth MD at 21:47 EDT , Service support , 04/08/20 21:25 Shoulder min 2 Views [RAD] Stat - Medical Decision Making Patient has reproducible mechanical pain. Axillary, median, radial and ulnar function intact. Biceps, brachialis tricep reflex are symmetric. There is area of point tenderness lateral proximal left shoulder region and over the left scapula. There is no rash to suggest herpes varicella-zoster. There is evidence of arthritis. There is no fracture or any other abnormality noted. Portion of the lung that is visualized is unremarkable. Since patient is on anticoagulant will treat with burst of prednisone. ED Disposition - Plan for ED Patient: Disposition: Home or Assisted Living Diagnosis: Pain, joint, shoulder region, left Instructions: ED Shoulder Pain Uncertain Cause Prescriptions: Prednisone [Deltasone] 40 mg PO DAILY #10 tab Transmission Status: Pending to [id number] Referrals: Harley Cornejo MD [Primary Care Provider] - 3-5 Days if not improving
--- NOTE | 2020-04-08 21:25 | RAD_ITS ---
STUDY: X-RAY - LEFT SHOULDER REASON FOR EXAM: Female, 74 years old. LEFT SHOULDER PAIN, NO KNOWN INJURY TECHNIQUE: 4 view(s) of the shoulder. COMPARISON: None. FINDINGS: Mildly narrowed glenohumeral articulation. Normal acromioclavicular joint. Normal acromion. Normal humeral head and visualized proximal humerus. The soft tissue structures are unremarkable. Normal visualized pulmonary apex. RAD/Shoulder min 2 Views IMPRESSION: Mild degenerative change. No acute fracture or other significant bony pathology. Electronically Signed: Kenneth Sheth MD at 21:47 EDT , Service support ,
[2020-04-08] MEDS: predniSONE 20 MG Tablet 60 MG PO (22:43)
== END 2020-04-08 22:48 | disposition home or self-care (01) ==
PROVIDERS: Emergency Provider Emergency Medicine; PCP Family Medicine
DX: M25.512 Pain in left shoulder (principal); E66.9 Obesity, unspecified; I11.0 Hypertensive heart disease with heart failure; I50.32 Chronic diastolic (congestive) heart failure; F41.9 Anxiety disorder, unspecified; I25.10 Atherosclerotic heart disease of native coronary artery without angina pectoris; K21.9 Gastro-esophageal reflux disease without esophagitis; E78.5 Hyperlipidemia, unspecified; J45.909 Unspecified asthma, uncomplicated; Z79.01 Long term (current) use of anticoagulants; Z82.49 Family history of ischemic heart disease and other diseases of the circulatory system; Z87.19 Personal history of other diseases of the digestive system; Z88.0 Allergy status to penicillin; Z88.1 Allergy status to other antibiotic agents; Z88.2 Allergy status to sulfonamides; Z88.5 Allergy status to narcotic agent; Z88.6 Allergy status to analgesic agent; Z88.8 Allergy status to other drugs, medicaments and biological substances; Z90.710 Acquired absence of both cervix and uterus; Z95.3 Presence of xenogenic heart valve; Z95.2 Presence of prosthetic heart valve
CPT/HCPCS: 73030; 99283

== ENCOUNTER → 2020-05-06 13:53 | Outpatient (CLI) | payer MEDICARE, OTHER, SELFPAY ==
[2020-05-06 13:01] VITALS: BMI 31.5
[2020-05-06 15:05] LABS: Anion Gap 4 (5-15); BUN 22 mg/dL (7-18); BUN/Creat Ratio 18.6 RATIO (10-20); Calcium,Total 9.3 mg/dL (8.5-10.1); Chloride 101 mmol/L (98-107); Creatinine, Serum 1.18 mg/dL (0.55-1.02); EST Glomerular Filtration Rate 47 mL/min (>60); Est Glom Filt Rate - Afr Amer 57 mL/min (>60); Glucose 80 mg/dL (74-106); Potassium 3.5 mmol/L (3.5-5.1); Sodium Level 138 mmol/L (136-145)
[2020-05-06 15:06] LABS: BNP,B-Type NATRIURETIC PEPTIDE 66.6 pg/mL (0-100)
== END ==
PROVIDERS: PCP Family Medicine; Referring Provider Nurse Practitioner Family; Visit Provider Nurse Practitioner Family
DX: I50.32 Chronic diastolic (congestive) heart failure (principal); R06.00 Dyspnea, unspecified
CPT/HCPCS: 36415; 80048; 83880

== ENCOUNTER → 2020-05-20 12:54 | Outpatient (CLI) | payer MEDICARE, OTHER, SELFPAY ==
[2020-05-10 08:39] VITALS: BMI 31.8
--- NOTE | 2020-05-20 12:54 | ECHOD_ITS ---
Reason For Study: DYSPNEA/SOB Procedure This was a 2D Doppler, Color Flow transthoracic echocardiogram. The study was technically difficult. Exam performed in department. Left Ventricle Normal LV size. Sigmoid septum. Left ventricular systolic function is normal. The estimated ejection fraction is 65 %. Transmitral diastolic flow velocities suggest moderate (stage 2) diastolic dysfunction (pseudonormal pattern). No regional wall motion abnormalities noted. Right Ventricle Normal RV size. Normal systolic function. Atria The left atrium is mildly enlarged. Normal right atrium. No doppler evidence for ASD. Mitral Valve There is moderate to severe mitral annular calcification. Extension of the mitral annular calcification onto the mitral valve leaflet. Trivial mitral valve insufficiency. Tricuspid Valve Normal tricuspid valve. Trivial tricuspid valve insufficiency. Right ventricular systolic pressure estimated to be 24 mmHg. Aortic Valve Mild aortic stenosis. Stable appearing mechanical aortic valve apparatus. Trivial transvalvular insufficiency of the aortic valve. Pulmonic Valve The pulmonic valve is not well visualized. Trivial pulmonic valve insufficiency. Great Vessels Normal sized aortic root. Pericardium/Pleural No pericardial effusion. MMode/2D Measurements & Calculations LVIDd: 4.3 cm IVSd: 1.1 cm LVOT diam: 2.0 cm LVIDs: 2.8 cm LVPWd: 1.1 cm LVOT area: 3.1 cm2 RVDd: 3.6 cm FS: 34.4 % Ao root diam: 3.6 cm LAV(MOD-bp): 76.4 ml LVAd ap4: 22.4 cm2 LAV(MOD-bp) Indexed: 41.5 ml/m2 EDV(MOD-sp4): 65.2 ml LAV(MOD-sp2): 67.2 ml EDV(sp4-el): 65.4 ml LAV(MOD-sp4): 82.5 ml LVAs ap4: 13.1 cm2 ESV(MOD-sp4): 27.6 ml ESV(sp4-el): 24.8 ml EF(MOD-sp4): 57.7 % EF(sp4-el): 62.1 % SV(MOD-sp4): 37.6 ml SV(sp4-el): 40.6 ml LA A4 area: 25.9 cm2 LA dimension(2D): 3.9 cm RA A4 area: 18.7 cm2 Time Measurements MV dec time: 0.25 sec Doppler Measurements & Calculations MV E max stefan: 116.6 cm/sec Lat Peak E' Stefan: 7.7 cm/sec Med Peak E' Stefan: 5.5 cm/sec MV A max stefan: 105.8 cm/sec E/E' lat: 15.2 E/E' med: 21.2 MV E/A: 1.1 MV V2 max: 128.5 cm/sec MV P1/2t max stefan: 126.2 cm/sec Ao V2 max: 244.2 cm/sec MV max P.6 mmHg MV P1/2t: 89.3 msec Ao max P.9 mmHg MV V2 mean: 84.9 cm/sec Ao V2 mean: 174.6 cm/sec MV mean P.2 mmHg MV dec slope: 413.6 cm/sec2 Ao mean P.7 mmHg MV V2 VTI: 38.1 cm MVA(P1/2t): 2.5 cm2 Ao V2 VTI: 52.9 cm MVA(VTI): 1.8 cm2 JOHANNA(I,D): 1.3 cm2 JOHANNA(V,D): 1.2 cm2 LV V1 max: 91.0 cm/sec SV(LVOT): 68.9 ml PA V2 max: 95.6 cm/sec LV V1 max P.3 mmHg LV V1 mean P.1 mmHg LV V1 mean: 68.2 cm/sec LV V1 VTI: 22.2 cm PI end-d stefan: 136.8 cm/sec TR max stefan: 226.2 cm/sec MV P1/2t-pr_phl: 82.4 msec TR max P.5 mmHg Interpretation Summary The study was technically difficult. Left ventricular systolic function is normal. The estimated ejection fraction is 65 %. Sigmoid septum. The left atrium is mildly enlarged. There is moderate to severe mitral annular calcification. Extension of the mitral annular calcification onto the mitral valve leaflet. Trivial mitral valve insufficiency. Trivial tricuspid valve insufficiency. Stable appearing mechanical aortic valve apparatus. Mild aortic stenosis. Trivial transvalvular insufficiency of the aortic valve. Trivial pulmonic valve insufficiency. Right ventricular systolic pressure estimated to be 24 mmHg. Transmitral diastolic flow velocities suggest diastolic dysfunction (pseudonormal pattern). Ordering Physician: Kleber Real/Rory Mckay Referring Physician: KOLBY KIM Performed By: Idalia Messina RDCS
== END ==
PROVIDERS: PCP Family Medicine; Referring Provider Nurse Practitioner Family; Visit Provider Nurse Practitioner Family
DX: I71.2 Thoracic aortic aneurysm, without rupture (principal); R06.00 Dyspnea, unspecified; Z95.2 Presence of prosthetic heart valve; R06.02 Shortness of breath
CPT/HCPCS: 93306

== ENCOUNTER → 2020-06-01 12:13 | Outpatient (CLI) | payer MEDICARE, OTHER, SELFPAY ==
[2020-05-10 08:39] VITALS: BMI 31.8
[2020-05-28 11:14] VITALS: BMI 32.1
--- NOTE | 2020-06-01 12:16 | BI_ITS ---
MAMMOGRAPHY - BILATERAL SCREENING REASON FOR EXAM: Female, 74 years old. Routine annual screening examination. PERTINENT HISTORY: Aunt with breast cancer. TECHNIQUE: Digital bilateral breast chetna (3D mammographic acquisition) in the CC and MLO projections. 2-D mediolateral oblique (MLO) and craniocaudad (CC) views of both breasts were obtained. CAD: Full Field Digital Mammography with Computer Added Detection was performed. COMPARISON: Comparison is made with prior study dated 05/12/2019 and 11/04/2018. FINDINGS: Breast Composition: The breasts are heterogeneously dense, which may obscure small masses. Stable 2.2 cm x 2.2 cm nodule in the inferior deep lateral aspect of the right breast. Hypodensities seen within it suggestive of a lymph node. Stable densely calcified nodule in the mid anterior medial aspect of the right breast. No other significant abnormalities are identified. There has been no significant change since the prior study. BI/SCREEN MAMM (CAD) W/CHETNA BILAT IMPRESSION: Stable bilateral screening mammogram. Yearly follow-up mammogram recommended. (A) ASSESSMENT CATEGORY: BIRADS Category 2: Benign. A letter regarding these results will be sent to the patient by the facility within 30 days. Approximately 10% of breast cancers are not detected by mammography. A normal mammogram should not delay biopsy of a clinically suspicious abnormality. [id number] Electronically Signed: Jesse Abernathy, at 13:32 EST , Service support ,
== END ==
PROVIDERS: PCP Family Medicine; Referring Provider Family Medicine; Visit Provider Family Medicine
DX: Z12.31 Encounter for screening mammogram for malignant neoplasm of breast (principal); Z80.3 Family history of malignant neoplasm of breast
CPT/HCPCS: 77063; 77067

== ENCOUNTER → 2020-06-03 09:28 | Outpatient (CLI) | payer MEDICARE, OTHER, SELFPAY ==
[2020-05-28 11:14] VITALS: BMI 32.1
[2020-06-03 09:49] LABS: International Normalized Ratio 2.8; Prothrombin Time (Protime)PT. 28.9 SECONDS (11.7-14.9)
== END ==
PROVIDERS: PCP Family Medicine; Referring Provider Family Medicine; Visit Provider Family Medicine
DX: Z95.4 Presence of other heart-valve replacement (principal)
CPT/HCPCS: 85610

== ENCOUNTER → 2020-06-10 13:07 | Outpatient (CLI) | payer MEDICARE, OTHER, SELFPAY ==
[2020-05-28 11:14] VITALS: BMI 32.1
[2020-06-10 13:32] LABS: International Normalized Ratio 2.8; Prothrombin Time (Protime)PT. 29.4 SECONDS (11.7-14.9)
== END ==
PROVIDERS: PCP Family Medicine; Visit Provider Registered Nurse
DX: Z95.4 Presence of other heart-valve replacement (principal)
CPT/HCPCS: 85610

== ENCOUNTER → 2020-06-22 13:08 | Outpatient (CLI) | payer MEDICARE, OTHER, SELFPAY ==
[2020-05-28 11:14] VITALS: BMI 32.1
[2020-06-22 13:33] LABS: Prothrombin Time (Protime)PT. 36.8 SECONDS (11.7-14.9)
[2020-06-22 13:41] LABS: International Normalized Ratio 3.7
== END ==
PROVIDERS: Registered Nurse; PCP Family Medicine; Referring Provider Family Medicine; Visit Provider Family Medicine
DX: Z95.4 Presence of other heart-valve replacement (principal)
CPT/HCPCS: 85610

== ENCOUNTER 2020-07-07 10:27 | Inpatient (IN) | payer MEDICARE, OTHER, SELFPAY ==
[2020-07-07] VITALS (40 sets, daily range): BP systolic 90–135; BP diastolic 53–113; PULSE 75–152; RESP 11–35; TEMP 36.1–36.9; O2SAT 87–100; BMI 30.7; BMI 30.2
--- NOTE | 2020-07-07 10:28 | ED.RN ---
HAS NO CELL PHONE--HOME PHONE [phone]. STATES HAS A DR ALEXANDRE SO WON'T BE HOME FOR AWHILE
--- NOTE | 2020-07-07 10:36 | ED.DCSUM_ITS ---
History of Present Illness Chief Complaint: Shortness of Breath Informant: Patient Onset: Month(s) - 3, much worse gradually for past week now Activity at onset: Unknown Timing: Continuous Quality: - - short of breath Current Severity: Moderate Maximum Severity: Moderate Worsened by: Coughing, Exertion Relieved by: Rest Associated Symptoms: Cough, Green sputum, Rhinorrhea, Sore throat, Yellow sputum. Negative for: Bloody Sputum, Chills, Fever Chest Pain: None Narrative: Patient states she has been short of breath now for about 3 months and has a history of bronchiectasis. She is not a great historian concerning her medical history, but states she was not put on any medications from her generation technician that are new. She has been getting worse in the past week, she was in the arts therapist office today, and was appearing very dyspneic, having some type of narrow complex tachycardia in the 140s, and they were concerned enough about her to send her to the emergency department. She has a history of a mechanical aortic valve replacement and is on warfarin as a result. She does have some diastolic dysfunction but normal systolic function and an ejection fraction of 65% on her last echo that was performed 1.5 months ago on 05/20/2020. She denies any new leg swelling. Patient presents during the national coronavirus emergency declaration/pandemic. She denies any known contact with anyone infected with COVID-19. She denies traveling out of the immediate area recently. She does not wear oxygen at home. 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 Comment: Mild (5) Bronchiectasis Status: Chronic (6) Chronic diastolic heart failure Status: Chronic (7) Chronic sinusitis Status: Chronic Comment: H/O Pseudomonas, MRSA (8) Essential hypertension Status: Chronic (9) Hyperlipidemia Status: Chronic (10) HERLINDA (obstructive sleep apnea) Status: Chronic Past Medical History - Allergies and Home Meds Allergies/Adverse Reactions: Allergies donepezil Allergy (Severe, Verified 07/07/20 09:17) shortness of breath Sulfa (Sulfonamide Antibiotics) Allergy (Verified 07/07/20 09:17) Swelling celecoxib [From Celebrex] Adverse Reaction (Severe, Verified 07/07/20 09:17) Swelling dextromethorphan [From Delsym] Adverse Reaction (Severe, Verified 07/07/20 09:17) hallucination adhesive Adverse Reaction (Verified 07/07/20 09:17) blisters BLISTERS codeine Adverse Reaction (Verified 07/07/20 09:17) Itching levofloxacin [From Levaquin] Adverse Reaction (Verified 07/07/20 09:17) pain in legs and swelling PAIN IN LEG AND SWELLING lisinopril Adverse Reaction (Verified 07/07/20 09:17) cough oxycodone [Oxycodone] Adverse Reaction (Verified 07/07/20 09:17) Itching oxycodone HCl [From Percocet] Adverse Reaction (Verified 07/07/20 09:17) Itching AND MAKES HEAD FEEL FUNNY Penicillins Adverse Reaction (Verified 07/07/20 09:17) heart palpitations HEART PALPITATIONS prochlorperazine edisylate [From Compazine] Adverse Reaction (Verified 07/07/20 09:17) Low blood pressure prochlorperazine maleate [From Compazine] Adverse Reaction (Verified 07/07/20 09:17) Low blood pressure tramadol HCl [From Ultram] Adverse Reaction (Verified 07/07/20 09:17) Itching Primary Care Physician: Harley Cornejo MD [Primary Care Provider] - Surgical History: hysterectomy, - - 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 Smoking Status: Never smoker - Family History Paternal Family History: Family History (Last Reviewed 07/07/20 @ 09:16 by Criss Govea) Mother Arthritis CAD (coronary artery disease) Father Arthritis High cholesterol CAD (coronary artery disease) Sister Diabetes High cholesterol Hypertension Brother Diabetes High cholesterol Hypertension Family History: Reports: Heart Disease - age 76 Maternal Family History: Family History (Last Reviewed 07/07/20 @ 09:16 by Criss Govea) Mother Arthritis CAD (coronary artery disease) Father Arthritis High cholesterol CAD (coronary artery disease) Sister Diabetes High cholesterol Hypertension Brother Diabetes High cholesterol Hypertension Family History: Reports: - - PD Sibling Family History: Family History (Last Reviewed 07/07/20 @ 09:16 by Criss Govea) Mother Arthritis CAD (coronary artery disease) Father Arthritis High cholesterol CAD (coronary artery disease) Sister Diabetes High cholesterol Hypertension Brother Diabetes High cholesterol Hypertension Family History: Reports: Diabetes Review of Systems General: Reports: Malaise. Denies: Chills, Fever, Sweats Eyes: Denies: Visual changes - bilaterally, Diplopia ENT: Reports: Rhinorrhea, Sore throat - mild. Denies: Bilateral ear pain Cardiovascular: Reports: Palpitations - off and on in past sev weeks, brief, not currently feeling any. Denies: Chest pain Respiratory: Reports: Dyspnea, Cough, Sputum, Dyspnea on exertion Gastrointestinal: Reports: Abdominal pain, Nausea. Denies: Vomiting, Diarrhea, Melena, Hematochezia Genitourinary: Denies: Dysuria, Hematuria, Frequency Musculoskeletal: Denies: Myalgias, Neck pain, Back pain, Swelling, Extremity Pain Skin: Denies: Rash, Wounds Neurological: Denies: Headache, Weakness, Numbness Physical Exam Vital Signs/Narrative: Vital Signs Temp Pulse Resp BP Pulse Ox 07/07/20 10:28 96.9 F L 144 H 23 H 108/73 98 Inital Vital Signs reviewed: Yes General: Well nourished, Well developed, Obese, No Acute Distress Head: Normocephalic, Atraumatic Eyes: Perrl, EOMI ENT: Moist mucous membranes, No rhinorrhea. Negative for: Nasal congestion, Sinus tenderness Neck: Supple, Nontender, No lymphadenopathy, No JVD Cardiovascular: Regular rate, Regular rhythm, Tachycardia, - - Systolic click Respiratory: No distress, Chest nontender, Rales - coarse BS throughout, somewhat worse on left Abdomen: Soft, Nondistended, Normal bowel sounds, Tender - Very mild, left upper quadrant only. Otherwise nontender.. Negative for: Guarding, Rebound tenderness, Pulsatile mass Back: Nontender, Normal Inspection Extremities: Nontender, No edema. Negative for: Calf Tenderness Skin: Normal color, No rash, No Trauma Neurological: Alert, Oriented x3, Cranial nerves II-XII grossly intact, Normal Strength, Normal Sensation Psychological: Normal affect, Normal Mood Diagnostic/Tx/Re-eval Impressions Chest X-Ray 07/07/20 11:06 IMPRESSION: Stable large hiatal hernia. Stable elevation of the right hemidiaphragm. No acute abnormality is seen. Electronically Signed: Jesse Abernathy, at 11:17 EST , Service support , 07/07/20 11:06 Chest 1 View (Portable) [RAD] Stat 07/07/20 10:40 Mucosa - Nose SARS-CoV-2 Antigen (Rapid) - Final Laboratory Results 07/07/20 07/07/20 07/07/20 10:37 10:37 10:37 WBC 10.5 RBC 5.55 H Hgb 13.2 Hct 44.2 MCV 79.6 L MCH 23.8 L MCHC 29.9 L RDW Std Deviation 50.9 H RDW Coeff of Loki 18.1 H Plt Count 448 MPV 9.8 Immature Gran % (Auto) 0.600 Neut % (Auto) 85.6 H Lymph % (Auto) 7.2 L Zavala % (Auto) 5.0 Eos % (Auto) 1.0 Baso % (Auto) 0.6 Absolute Neuts (auto) 9.0 H Absolute Lymphs (auto) 0.76 L Nucleated RBC % 0 PT INR Sodium 139 Potassium 3.3 L Chloride 102 Carbon Dioxide 30.0 Anion Gap 7 BUN 20 H Creatinine 1.24 H Estim Creat Clear Calc 32.43 Est GFR (MDRD) Af Amer 54 L Est GFR (MDRD) Non-Af 45 L BUN/Creatinine Ratio 16.1 Glucose 100 Lactic Acid 1.6 Calcium 10.0 Troponin I 0.016 B-Natriuretic Peptide 07/07/20 07/07/20 10:37 10:37 WBC RBC Hgb Hct MCV MCH MCHC RDW Std Deviation RDW Coeff of Loki Plt Count MPV Immature Gran % (Auto) Neut % (Auto) Lymph % (Auto) Zavala % (Auto) Eos % (Auto) Baso % (Auto) Absolute Neuts (auto) Absolute Lymphs (auto) Nucleated RBC % PT 49.5 H INR 5.4 H* Sodium Potassium Chloride Carbon Dioxide Anion Gap BUN Creatinine Estim Creat Clear Calc Est GFR (MDRD) Af Amer Est GFR (MDRD) Non-Af BUN/Creatinine Ratio Glucose Lactic Acid Calcium Troponin I B-Natriuretic Peptide 403.3 H - Rhythm Strip Rhythm Strip: Narrow complex tachycardia Rate: 140 Ectopy: None Treatment - Dyspnea: Albuterol Repeat Evaluation: Improved - Medical Decision Making Patient breathing feeling much better after an albuterol treatment, but her heart rate did not come down. Still in the 140s narrow complex tachycardia. Therefore she was given adenosine, it did not break the rhythm and appear to show underlying rapid A. fib/a flutter, which she is not feeling racing in the 140s. Therefore she was given Cardizem, a low dose of 10 mg because her blood pressure was in the low 100s/60s. Soon thereafter her heart rate came down to 105-115 range. She did not notice any difference clinically. She was breathing well and felt better. I discussed with cardiology, Dr. Mckay recommended starting her on Cardizem CD 120 mg every morning along with the metoprolol XL 50 mg that she takes at night. She was given the first dose now, in addition to some potassium since her level was a little low. However her heart rate started to increase again, and with ambulation prior to discharge, she was dyspneic and tachycardic although she did not become hypoxic. Her blood pressure is in the 120s so another Cardizem 10 mg was given IV. I also discussed with Dr. Johnson her generation technician, given her productive cough and worsening bronchiectasis, and the fact that she has colonized/grew out Pseudomonas in the past, recommends her following up as an outpatient and putting her on a 10-day course of Levaquin 750 mg. Since the patient is not feeling the palpitations/tachycardia, it is unclear if the dyspnea is due to the dysrhythmia, bronchiectasis, or more likely, combination of the 2. After the oral dose of Cardizem and the IV second dose of Cardizem, her heart rate was again near 100. We took her for a very short walk, she became very dyspneic and her heart rate again was at 150. Therefore I think it would be best to admit her. As she rest, her heart rate gradually came down to the 120s and now is in the 110s. Discussed with hospitalist who requests Covid PCR to confirm the negative rapid antigen result. ED Disposition - Plan for ED Patient: Disposition: Acute Care [facility] Diagnosis: Atrial fibrillation with rapid ventricular response, Bronchiectasis with acute exacerbation, Respiratory insufficiency Instructions: Bronchiectasis, ED AFIB Referrals: Harley Cornejo MD [Primary Care Provider] -
[2020-07-07] MEDS: Albuterol 2.5 MG/3 ML VIAL.NEB. INHALATION (10:45)
[2020-07-07 10:52] LABS: Absolute Lymphocyte Count 0.76 X10^3/uL (0.83-4.51); Basophil# 0.06 X10^3/uL; Basophil% 0.6 % (0-1); Hematocrit 44.2 % (37-47); Hemoglobin 13.2 g/dL (12.0-15.0); Lymphocyte # 0.76 X10^3/ul (4.0); Lymphocyte % 7.2 % (19-41); Mean Corp Hgb Conc 29.9 g/dL (32-36); Mean Corpuscular Hgb 23.8 pg (27.0-32.0); Mean Corpuscular Volume 79.6 fL (81-99); Mean Platelet Vol. 9.8 fl (6.2-12.0); Monocyte# 0.52 X10^3/uL; NRBC Flagged by Analyzer 0 % (0-5); Neutrophil % 85.6 % (47-70); Platelet Count 448 K/mm3 (150-450); RBC Distribution Width CV 18.1 % (11.6-14.6); RBC Distribution Width SD 50.9 fl (35.1-43.9); Red Blood Count 5.55 M/mm3 (4.2-5.4); White Blood Count 10.5 K/mm3 (4.4-11.0)
[2020-07-07 11:01] LABS: Prothrombin Time (Protime)PT. 49.5 SECONDS (11.7-14.9)
[2020-07-07 11:02] LABS: International Normalized Ratio 5.4
--- NOTE | 2020-07-07 11:06 | RAD_ITS ---
STUDY: X-RAY CHEST REASON FOR EXAM: Female, 74 years old. SOB X3 MONTHS. TACHYCARDIA. TECHNIQUE: Single AP portable view of the chest. COMPARISON: Comparison is made with prior study dated 12/02/2019. FINDINGS: EKG electrodes are seen. Stable elevation of the right hemidiaphragm. There is no demonstrated pleural abnormality. Sternal cerclage wires and vascular clips are present from a prior sternotomy and coronary artery bypass graft procedure (CABG). Mild cardiomegaly. Normal mediastinum and chica. Normal visualized pulmonary arteries. There is atherosclerotic calcification of the aortic arch with tortuosity. There are degenerative changes of the visualized thoracic spine. Normal visualized ribs, clavicles, and shoulders. Stable large hiatal hernia. RAD/Chest 1 View (Portable) IMPRESSION: Stable large hiatal hernia. Stable elevation of the right hemidiaphragm. No acute abnormality is seen. Electronically Signed: Jesse Abernathy, at 11:17 EST , Service support ,
[2020-07-07 11:07] LABS: Anion Gap 7 (5-15); BUN 20 mg/dL (7-18); BUN/Creat Ratio 16.1 RATIO (10-20); Chloride 102 mmol/L (98-107); Creatinine, Serum 1.24 mg/dL (0.55-1.02); EST Glomerular Filtration Rate 45 mL/min (>60); Est Glom Filt Rate - Afr Amer 54 mL/min (>60); Estimated Creatinine Clearance 32.43 ml/min; Glucose 100 mg/dL (74-106); Potassium 3.3 mmol/L (3.5-5.1); Sodium Level 139 mmol/L (136-145)
[2020-07-07 11:14] LABS: BNP,B-Type NATRIURETIC PEPTIDE 403.3 pg/mL (0-100)
[2020-07-07 11:15] LABS: Lactic Acid 1.6 mmol/L (0.4-1.9)
[2020-07-07] MEDS: Adenosine 6 MG/2 ML Syringe IV (12:46)
[2020-07-07] MEDS: dilTIAZem 25 MG/5 ML Vial 10 MG IV BOLUS ×2 (13:45→14:50)
[2020-07-07] MEDS: dilTIAZem CD 120 MG Capsule PO (14:20)
--- NOTE | 2020-07-07 15:51 | HP.PCM_ITS ---
Problem List (1) Atrial fibrillation with rapid ventricular response Status: Acute (2) Bronchiectasis with acute exacerbation Status: Acute (3) Chronic diastolic heart failure Status: Chronic (4) HERLINDA (obstructive sleep apnea) Status: Chronic (5) Essential hypertension Status: Chronic (6) Anxiety Status: Chronic (7) Obesity Status: Chronic Qualifiers: Obesity type: unspecified obesity type Obesity classification: adult class 1 (BMI 30 - 34.9) Body mass index: BMI 30.0-30.9 History of Present Illness Date of Admission: 07/07/20 Chief Complaint: Shortness of breath, tachycardia The patient is a 74 year old F with past medical history of mechanical aortic valve, hypertension, hyperlipidemia, dilated thoracic aortic root, chronic diastolic congestive heart failure, history of bronchiectasis who comes in with shortness of breath ongoing for about 2 weeks. Her shortness of breath is worse with activity and improves with rest. She has associated palpitations in presyncope feeling. Her cough is productive of brownish yellow-greenish sputum. Denies any fever or chills or sick contact. He was seen earlier in the candy vendor office to have an SVT with rate 149. Patient was sent to the emergency department. She was found to have a narrow complex tachycardia, with heart rate in the 140s. She was given adenosine which did not seem to have helped much. She was found to have underlining rapid A. fib/a flutter. She received Cardizem with improvement in her heart rate. She however, became persistently dyspneic and tachycardic. Her temperature was 96.9F, heart rate 144, blood pressure 108/73, respiratory 23, SPO2 is 98% on room air. WBC count is 10.5, hemoglobin 13.2, platelet count 448, INR 5.4, sodium 139, potassium 3.3, chloride 102, bicarbonate 30, BUN 20, creatinine 1.24, baseline creatinine is between 1.1 and 1.2. BNP of is 403.3. Rapid antigen for COVID-19 is negative. COVID-19 PCR is pending. Chest x-ray showed a large stable hiatal hernia, stable base of the right hemidiaphragm. No acute abnormality seen. Past Medical History Past Medical History (Chronic Problems): Chronic Problems (Last Reviewed 07/07/20 @ 09:16 by Criss Govea) Aneurysm, thoracic aortic (Chronic) Chronic diastolic heart failure (Chronic) HERLINDA (obstructive sleep apnea) (Chronic) Pseudomonas respiratory infection (Chronic) History of recurrent pseudomonal infections in the past Bronchiectasis (Chronic) History of mechanical aortic valve replacement (Chronic ~10/07/13) [id number], 2003, Redo AVR 10/10 (#21 On-X mechanical valve) Essential hypertension (Chronic) GERD (gastroesophageal reflux disease) (Chronic) Hypoxemia (Chronic) Anxiety (Chronic) Atherosclerotic heart disease of [place] coronary artery without angina pectoris (Chronic) Mild Palpitations (Chronic) Nonspecific chest pain (Chronic) Aneurysm, thoracic aortic (Chronic) Nonrheumatic aortic valve regurgitation (Chronic) Fatigue (Chronic) Hyperlipidemia (Chronic) Obesity (Chronic) Asthma (Chronic) Chronic sinusitis (Chronic) H/O Pseudomonas, MRSA Medical History: Medical History (Last Reviewed 07/07/20 @ 09:16 by Criss Govea) Chronic diastolic heart failure (Chronic) I50.32 Bronchiectasis (Chronic) J47.9 Essential hypertension (Chronic) I10 Cough (Acute) R05 Allergic rhinitis (Acute) J30.9 GERD (gastroesophageal reflux disease) (Chronic) K21.9 Hypoxemia (Chronic) R09.02 Anxiety (Chronic) F41.9 Chronic anticoagulation (Acute) Z79.01 Hemoptysis (Acute) R04.2 Atherosclerotic heart disease of [place] coronary artery without angina pectoris (Chronic) I25.10 Mild Palpitations (Chronic) R00.2 Nonspecific chest pain (Chronic) R07.9 Aneurysm, thoracic aortic (Chronic) I71.2 Nonrheumatic aortic valve regurgitation (Chronic) I35.1 Fatigue (Chronic) R53.83 Hyperlipidemia (Chronic) E78.5 Obesity (Chronic) E66.9 Asthma (Chronic) J45.909 Chronic sinusitis (Chronic) J32.9 H/O Pseudomonas, MRSA Depression F32.9 Hiatal hernia K44.9 Aortic stenosis I35.0 S/P AVR in February 2004 with Mitchell Hernandez; redo AVR in September 2013 with a #21 O-X mechanical valve CAP (community acquired pneumonia) J18.9 Severe sepsis A41.9, R65.20 Syncope and collapse (Resolved) R55 Chronic a-fib (Inactive) I48.2 Hypertension (Inactive) I10 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 (Inactive) Allergies donepezil Allergy (Severe, Verified 07/07/20 09:17) shortness of breath Sulfa (Sulfonamide Antibiotics) Allergy (Verified 07/07/20 09:17) Swelling celecoxib [From Celebrex] Adverse Reaction (Severe, Verified 07/07/20 09:17) Swelling dextromethorphan [From Delsym] Adverse Reaction (Severe, Verified 07/07/20 09:17) hallucination adhesive Adverse Reaction (Verified 07/07/20:) blisters BLISTERS codeine Adverse Reaction (Verified 07/07/20:17) Itching levofloxacin [From Levaquin] Adverse Reaction (Verified 07/07/20 09:17) pain in legs and swelling PAIN IN LEG AND SWELLING lisinopril Adverse Reaction (Verified 07/07/20:17) cough oxycodone [Oxycodone] Adverse Reaction (Verified 07/07/20 09:17) Itching oxycodone HCl [From Percocet] Adverse Reaction (Verified 07/07/20:17) Itching AND MAKES HEAD FEEL FUNNY Penicillins Adverse Reaction (Verified 07/07/20 09:17) heart palpitations HEART PALPITATIONS prochlorperazine edisylate [From Compazine] Adverse Reaction (Verified 07/07/20 09:17) Low blood pressure prochlorperazine maleate [From Compazine] Adverse Reaction (Verified 07/07/20:17) Low blood pressure tramadol HCl [From Ultram] Adverse Reaction (Verified 07/07/20 09:17) Itching Home Medications: Ambulatory Orders Medication Instructions Recorded Pantoprazole Sodium [Protonix] 40 mg PO BID 01/14/15 buPROPion XL [Wellbutrin Xl] 150 mg PO DAILY 11/15/15 Montelukast [Singulair] 10 mg PO QHS 05/03/17 Potassium Chloride [K-Dur] 20 meq PO DAILY 05/03/17 aspirin 81 mg chewable tablet 162 mg PO DAILY tab 09/04/17 lorazepam 0.5 mg tablet 0.5 mg PO BID PRN 09/04/17 Warfarin [Coumadin] 5 mg PO SUMOWEFR 12/03/17 Furosemide [Lasix] 40 mg PO DAILY #0 12/06/17 albuterol sulfate 2.5 mg INHALATION Q4H PRN 12/20/17 cholecalciferol (vitamin D3) 1,250 50,000 unit PO FR 06/16/19 mcg (50,000 unit) capsule ezetimibe 10 mg tablet 10 mg PO DAILY #90 tab 08/07/19 pravastatin 80 mg tablet 80 mg PO QHS #90 tab 08/13/19 Warfarin [Coumadin ([facility]KC)] 3 mg PO TUTHSA 12/02/19 albuterol sulfate 90 mcg/actuation 2 puff INHALATION Q4H PRN #18 g 12/09/19 aerosol inhaler azelastine 137 mcg (0.1 %) nasal 1 spray INTRANASAL BID #30 ml 01/19/20 spray aerosol budesonide-formoterol HFA 160 2 inh INHALATION BID #10.2 g 01/26/20 mcg-4.5 mcg/actuation aerosol inhaler ferrous sulfate 325 mg (65 mg 325 mg PO DAILY 05/10/20 iron) tablet tiotropium bromide 2.5 2 puff INHALATION QDAY #4 g 05/10/20 mcg/actuation mist for inhalation metoprolol succinate 50 mg 50 mg PO DAILY #90 tab 07/06/20 tablet,extended release 24 hr Acetaminophen [Tylenol Arthritis] 650 mg PO Q6H PRN 07/07/20 Paroxetine HCl 20 mg PO DAILY 07/07/20 Surgical History: Surgical History (Last Reviewed 07/07/20 @ 09:16 by Criss Govea) History of mechanical aortic valve replacement (Chronic) Onset Date: ~10/07/13 Z95.2 [id number], 2003, Redo AVR 10/10 (#21 On-X mechanical valve) History of back surgery Z98.890 History of foot surgery Z98.890 History of hysterectomy Z90.710 History of sinus surgery Z98.890 H/O aortic valve replacement (Inactive) Z95.2 [id number]-Mmahik, 2003, Redo AVR 10/10 (#21 On-X mechanical valve) Surgical History: hysterectomy, - - 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 Smoking Status: Never smoker Tobacco Use: Non-smoker Alcohol: None Drugs: None - *Family History Paternal Family History: Family History (Last Reviewed 07/07/20 @ 09:16 by Criss Govea) Mother Arthritis CAD (coronary artery disease) Father Arthritis High cholesterol CAD (coronary artery disease) Sister Diabetes High cholesterol Hypertension Brother Diabetes High cholesterol Hypertension History Items: Heart Disease - age 76 Maternal Family History: Family History (Last Reviewed 07/07/20 @ 09:16 by Criss Govea) Mother Arthritis CAD (coronary artery disease) Father Arthritis High cholesterol CAD (coronary artery disease) Sister Diabetes High cholesterol Hypertension Brother Diabetes High cholesterol Hypertension History Items: - - PD Sibling Family History: Family History (Last Reviewed 07/07/20 @ 09:16 by Criss Govea) Mother Arthritis CAD (coronary artery disease) Father Arthritis High cholesterol CAD (coronary artery disease) Sister Diabetes High cholesterol Hypertension Brother Diabetes High cholesterol Hypertension History Items: Diabetes Review of Systems Constitutional: Reports: Weakness, Fatigue. Denies: Anorexia, Chills, Fever, Malaise, Weight Change Eyes: Denies: Blurred vision, Cataracts, Conjunctivae Inflammation, Pain, Redness HEENT: Denies: Head Aches, Hearing Changes, Sinus Congestion, Sinus Drainage Cardiovascular: Reports: Light Headedness. Denies: Chest Pain, Claudication, Orthopnea, Palpitations Respiratory: Reports: Cough, Shortness of Breath, Shortness of breath at rest, Shortness of breath upon exertion, Sputum production Gastrointestinal: Denies: Abdominal Pain, Constipation, Hematemesis, Hematochezia, Nausea, Vomiting Genitourinary: Denies: Dysuria, Frequency Musculoskeletal: Denies: Joint Pain, Joint stiffness, Joint swelling, Joint Tenderness Skin: Denies: Pruritis, Rash, Wounds Neurological: Denies: Difficulty swallowing, Focal weakness, Numbness, Tingling Psychiatric: Denies: Anxiety, Depression, Homicidal Ideations, Suicidal Ideations Hematologic/ Lymphatic: Denies: Easy Bruising, Easy Bleeding VTE Information - Inpt Only VTE Present on Admission: No VTE Pharm Prophylaxis ordered?: Yes Patient Problems: Active and Suspected Problems (Last Reviewed 07/07/20 @ 09:16 by Criss Govea) Atrial fibrillation with rapid ventricular response (Acute) Bronchiectasis with acute exacerbation (Acute) Respiratory insufficiency (Acute) - Physical Exam Vitals/I&O's: Vital Signs Temp Pulse Resp BP Pulse Ox 98.1 F 123 H 18 129/113 H 93 07/07/20 13:00 07/07/20 15:28 07/07/20 14:50 07/07/20 15:28 07/07/20 15:29 Oxygen Flow Rate (L/min) 2 Oxygen Delivery Method Nasal Cannula Weight: 78.5 kg Body Mass Index (BMI) 30.7 Finger Stick Blood Glucose 93 General: Alert, Oriented x3, Cooperative, No apparent distress, - - on room air HEENT: Atraumatic, PERRLA, EOMI, Normocephalic Oral: Moist Mucosa Neck: Supple Lungs: Diminished, Rales - few rales at lung bases Cardiovascular: Regular rate, Regular Rhythm, Normal S1, Normal S2 - mechanical click, No murmurs Abdomen: Bowel Sounds Present, Soft, Non Tender, Non-Distended, No Hepato- splenomegaly Extremities: No edema Skin: No rashes Musculoskeletal: No Tenderness to Palpation of Joints or Extremities Lymphatic: No Cervical, Supraclavicular, or Inguinal Adenopathy Neurological: Cranial nerves II-XII grossly intact, Neuro grossly intact Psych/Mental Status: Normal Affect, Appropriate Microbiology Past 72 Hours 07/07/20 10:40 Mucosa - Nose SARS-CoV-2 Antigen (Rapid) - Final Laboratory Results 07/07/20 10:37: WBC 10.5, RBC 5.55 H, Hgb 13.2, Hct 44.2, MCV 79.6 L, MCH 23.8 L , MCHC 29.9 L, RDW Std Deviation 50.9 H, RDW Coeff of Loki 18.1 H, Plt Count 448, MPV 9.8, Immature Gran % (Auto) 0.600, Neut % (Auto) 85.6 H, Lymph % (Auto) 7.2 L, [place] % (Auto) 5.0, Eos % (Auto) 1.0, Baso % (Auto) 0.6, Absolute Neuts (auto) 9.0 H, Absolute Lymphs (auto) 0.76 L, Nucleated RBC % 0 07/07/20 10:37: Sodium 139, Potassium 3.3 L, Chloride 102, Carbon Dioxide 30.0, Anion Gap 7, BUN 20 H, Creatinine 1.24 H, Estim Creat Clear Calc 32.43, Est GFR (MDRD) Af Amer 54 L, Est GFR (MDRD) Non-Af 45 L, BUN/Creatinine Ratio 16.1, Glucose 100, Calcium 10.0, Troponin I 0.016 07/07/20 10:37: Lactic Acid 1.6 07/07/20 10:37: B-Natriuretic Peptide 403.3 H 07/07/20 10:37: PT 49.5 H, INR 5.4 H* Assessment/Plan All Active Problems (Last Reviewed 07/07/20 @ 09:16 by Criss Govea) Atrial fibrillation with rapid ventricular response (Acute) Bronchiectasis with acute exacerbation (Acute) Respiratory insufficiency (Acute) Cough (Acute) Allergic rhinitis (Acute) Chronic anticoagulation (Acute) Hemoptysis (Acute) Syncope and collapse (Resolved) 1. Arrhythmia - narrow complex tachycardia/A. fib with RVR, status post adenosine and Cardizem bolus Will admit to PCU, continue on Cardizem drip INR supratherapeutic at 5.4 Trend troponins Cardiology consult 2. Acute exacerbation of bronchiectasis, patient has dyspnea on exertion Chest x-ray was negative for acute infiltrate COVID-19 rapid antigen was negative, COVID-19 PCR pending Patient previous sputum cultures grew Pseudomonas We will start patient on IV Zosyn, IV steroids Respiratory panel Pulmonology consult 3. Supratherapeutic INR, no evidence of bleeding Will hold Coumadin tonight, repeat INR in a.m. 4. Hypertension/CAD/status post mechanical aortic valve replacement 5. Acute on chronic diastolic CHF, EF 55% secondary to arrhythmia Patient's admitting BNP up is 403.3 Would continue on IV Lasix 40 mg twice daily, strict CHF protocol 6. Hypokalemia, potassium is 3.3, replaced Would also check magnesium level Repeat blood work in a.m. 7. CKD stage III, creatinine remains at baseline 8. DVT prophylaxis?INR supratherapeutic 9. Code Status - DNR CCA, no intubation I discussed and explained in details the various types of CODE STATUS-full code, DNR CCA, DNR CC. Patient initially said she wanted everything done for her. Then she told me that she however does not want to be kept on life support if needed. I clarified CODE STATUS and she chose DNR CCA. Time spent discussing CODE STATUS 18 minutes Inpatient E&M: 98601 Init Hosp L3
--- NOTE | 2020-07-07 17:06 | CON.PCM_ITS ---
Problem List (1) Atrial fibrillation with rapid ventricular response Status: Acute (2) History of mechanical aortic valve replacement Status: Chronic Comment: XER-[id number]-[id number], 2003, Redo AVR 10/10 (#21 On-X mechanical valve) (3) Aneurysm, thoracic aortic Status: Chronic Qualifiers: Presence of rupture: without rupture Qualified Code(s): I71.2 - Thoracic aortic aneurysm, without rupture (4) Atherosclerotic heart disease of [place] coronary artery without angina pectoris Status: Chronic Qualifiers: [place] vs. transplanted heart: [place] heart Qualified Code(s): I25.10 - Atherosclerotic heart disease of [place] coronary artery without angina pectoris Comment: Mild (5) Hyperlipidemia Status: Chronic Qualifiers: Hyperlipidemia type: unspecified Qualified Code(s): E78.5 - Hyperlipidemia, unspecified (6) Essential hypertension Status: Chronic (7) Bronchiectasis Status: Chronic Qualifiers: Bronchiectasis type: uncomplicated Qualified Code(s): J47.9 - Bronchiectasis, uncomplicated Reason for Consult Date of Consultation: 07/07/20 History of Present Illness: The patient is a 74 year old white female white female with a past medical history of underlying aortic valve disorder status post redo aortic valve replacement with a mechanical aortic valve prosthesis (#21 On-X mechanical), thoracic aortic aneurysm, atrial fibrillation, CAD-nonangiographically significant, hyperlipidemia, hypertension, and bronchiectasis who presents for [facility] emergency department evaluation for concerns of atrial fibrillation/flutter with RVR. She presented to the office this day for outpatient follow-up with concerns of progressive shortness of breath/dyspnea. On examination she was noted to have an elevated heart rate. An ECG was performed which suggested an underlying supraventricular tachycardia with concerns of atrial tachycardia with 2-1 AV block versus atrial flutter with 2-1 AV block. She states she does not sense her heart rate going fast. She had no complaints of ongoing chest discomfort. She has had chronic shortness of breath/dyspnea thought related to her history of underlying pulmonary disease. There has been no near syncope or syncope. She was taken to the emergency department for further evaluation and care. There she was treated with IV adenosine. She had transient slowing of her cardiac rate to suggest underlying atrial fibrillation/flutter. She was treated with IV diltiazem with slowing of her rate suggesting underlying atrial fibrillation/flutter. She was initially thought to be able to be released home on rate control therapy, as she is already anticoagulated, for continued outpatient follow-up. However she had recurrence of her tachydysrhythmia. Thus it was elected to bring the patient into the hospital for further evaluation and care. At the present time she appears to be resting comfortably in the emergency department with findings of underlying tachycardia but in no acute distress. [] Past Medical History Allergies/Adverse Reactions: Allergies donepezil Allergy (Severe, Verified 07/07/20 09:17) shortness of breath Sulfa (Sulfonamide Antibiotics) Allergy (Verified 07/07/20:17) Swelling celecoxib [From Celebrex] Adverse Reaction (Severe, Verified 07/07/20:17) Swelling dextromethorphan [From Delsym] Adverse Reaction (Severe, Verified 07/07/20:17) hallucination adhesive Adverse Reaction (Verified 07/07/20:) blisters BLISTERS codeine Adverse Reaction (Verified 07/07/20:17) Itching levofloxacin [From Levaquin] Adverse Reaction (Verified 07/07/20 09:17) pain in legs and swelling PAIN IN LEG AND SWELLING lisinopril Adverse Reaction (Verified 07/07/20 09:17) cough oxycodone [Oxycodone] Adverse Reaction (Verified 07/07/20:17) Itching oxycodone HCl [From Percocet] Adverse Reaction (Verified 07/07/20:17) Itching AND MAKES HEAD FEEL FUNNY Penicillins Adverse Reaction (Verified 07/07/20:17) heart palpitations HEART PALPITATIONS prochlorperazine edisylate [From Compazine] Adverse Reaction (Verified 07/07/20 09:17) Low blood pressure prochlorperazine maleate [From Compazine] Adverse Reaction (Verified 07/07/20 09:17) Low blood pressure tramadol HCl [From Ultram] Adverse Reaction (Verified 07/07/20 09:17) Itching Home Medications: Ambulatory Orders Medication Instructions Recorded Pantoprazole Sodium [Protonix] 40 mg PO BID 01/14/15 buPROPion XL [Wellbutrin Xl] 150 mg PO DAILY 11/15/15 Montelukast [Singulair] 10 mg PO QHS 05/03/17 Potassium Chloride [K-Dur] 20 meq PO DAILY 05/03/17 aspirin 81 mg chewable tablet 162 mg PO DAILY tab 09/04/17 lorazepam 0.5 mg tablet 0.5 mg PO BID PRN 09/04/17 Warfarin [Coumadin] 5 mg PO SUMOWEFR 12/03/17 Furosemide [Lasix] 40 mg PO DAILY #0 12/06/17 albuterol sulfate 2.5 mg INHALATION Q4H PRN 12/20/17 cholecalciferol (vitamin D3) 1,250 50,000 unit PO FR 06/16/19 mcg (50,000 unit) capsule ezetimibe 10 mg tablet 10 mg PO DAILY #90 tab 08/07/19 pravastatin 80 mg tablet 80 mg PO QHS #90 tab 08/13/19 Warfarin [Coumadin (PBKC)] 3 mg PO TUTHSA 12/02/19 albuterol sulfate 90 mcg/actuation 2 puff INHALATION Q4H PRN #18 g 12/09/19 aerosol inhaler azelastine 137 mcg (0.1 %) nasal 1 spray INTRANASAL BID #30 ml 01/19/20 spray aerosol budesonide-formoterol HFA 160 2 inh INHALATION BID #10.2 g 01/26/20 mcg-4.5 mcg/actuation aerosol inhaler ferrous sulfate 325 mg (65 mg 325 mg PO DAILY 05/10/20 iron) tablet tiotropium bromide 2.5 2 puff INHALATION QDAY #4 g 05/10/20 mcg/actuation mist for inhalation metoprolol succinate 50 mg 50 mg PO DAILY #90 tab 07/06/20 tablet,extended release 24 hr Acetaminophen [Tylenol Arthritis] 650 mg PO Q6H PRN 07/07/20 Paroxetine HCl 20 mg PO DAILY 07/07/20 Past Medical History (Chronic Problems): Chronic Problems (Last Reviewed 07/07/20 @ 09:16 by Criss Govea) Aneurysm, thoracic aortic (Chronic) Chronic diastolic heart failure (Chronic) HERLINDA (obstructive sleep apnea) (Chronic) Pseudomonas respiratory infection (Chronic) History of recurrent pseudomonal infections in the past Bronchiectasis (Chronic) History of mechanical aortic valve replacement (Chronic ~10/07/13) [id number]-[id number], 2003, Redo AVR 10/10 (#21 On-X mechanical valve) Essential hypertension (Chronic) GERD (gastroesophageal reflux disease) (Chronic) Hypoxemia (Chronic) Anxiety (Chronic) Atherosclerotic heart disease of [place] coronary artery without angina pectoris (Chronic) Mild Palpitations (Chronic) Nonspecific chest pain (Chronic) Aneurysm, thoracic aortic (Chronic) Nonrheumatic aortic valve regurgitation (Chronic) Fatigue (Chronic) Hyperlipidemia (Chronic) Obesity (Chronic) Asthma (Chronic) Chronic sinusitis (Chronic) H/O Pseudomonas, MRSA Surgical History: hysterectomy, - - Aortic valve replacement mechanical after bovine, sinus surgery x4, back surgery, colonoscopy 2012 with polyps removed, foot surgery. 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 history - *Family History Paternal Family History: Family History (Last Reviewed 07/07/20 @ 09:16 by Criss Govea) Mother Arthritis CAD (coronary artery disease) Father Arthritis High cholesterol CAD (coronary artery disease) Sister Diabetes High cholesterol Hypertension Brother Diabetes High cholesterol Hypertension History Items: Heart Disease - age 76 Maternal Family History: Family History (Last Reviewed 07/07/20 @ 09:16 by Criss Govae) Mother Arthritis CAD (coronary artery disease) Father Arthritis High cholesterol CAD (coronary artery disease) Sister Diabetes High cholesterol Hypertension Brother Diabetes High cholesterol Hypertension History Items: - - PD Sibling Family History: Family History (Last Reviewed 07/07/20 @ 09:16 by Criss Govea) Mother Arthritis CAD (coronary artery disease) Father Arthritis High cholesterol CAD (coronary artery disease) Sister Diabetes High cholesterol Hypertension Brother Diabetes High cholesterol Hypertension History Items: Diabetes Lives: Spouse/ Significant Other Smoking Status: Never smoker Tobacco Use: Non-smoker Alcohol: None Drugs: None Review of Systems - Review of Systems General: Denies: Fever, Night Sweats, Fatigue Cardiovascular: Reports: Shortness of Breath. Denies: Chest Discomfort, Orthopnea, PND, Peripheral Edema, Palpitations, Lightheadedness, Dizziness, Near Syncope, Syncope Respiratory: Reports: Cough, Shortness of Breath. Denies: Sputum Production, Hemoptysis Gastrointestinal: Denies: Hematemesis, Hematochezia, Melena Genitourinary: Denies: Dysuria, Hematuria Skin: Denies: Rash Subjectve: This is a 74-year-old white female appears resting comfortably at the moment no acute distress. Objective: Vital Signs Temp Pulse Resp BP Pulse Ox 98.1 F 152 H 16 117/86 H 97 07/07/20 16:31 07/07/20 16:31 07/07/20 16:31 07/07/20 16:31 07/07/20 16:31 Oxygen Flow Rate (L/min) 2 Oxygen Delivery Method Nasal Cannula Weight: 173 lb 1.006 oz Body Mass Index (BMI) 30.7 Finger Stick Blood Glucose 93 General: Awake, Alert, Oriented x 3, Cooperative, No Acute Distress HEENT: Atraumatic, Normocephalic, PERRL, EOMI, Sclera Non Icteric Neck: Supple, Good ROM, No JVD Lungs: Rhonchi Cardiovascular: Irregular Rhythm, Normal S1, [place] Prosthetic S2 Abdomen: Bowel Sounds Present, Soft Extremities: No edema Neurological: No Focal Motor or Sensory Deficit Psych/Mental Status: Appropriate 07/07/20 10:37: WBC 10.5, RBC 5.55 H, Hgb 13.2, Hct 44.2, MCV 79.6 L, MCH 23.8 L , MCHC 29.9 L, Plt Count 448, MPV 9.8, Immature Gran % (Auto) 0.600, Neut % (Auto) 85.6 H, Lymph % (Auto) 7.2 L, [place] % (Auto) 5.0, Eos % (Auto) 1.0, Baso % (Auto) 0.6, Absolute Neuts (auto) 9.0 H, Nucleated RBC % 0 07/07/20 10:37: Sodium 139, Potassium 3.3 L, Chloride 102, Carbon Dioxide 30.0, Anion Gap 7, BUN 20 H, Creatinine 1.24 H, Est GFR (MDRD) Af Amer 54 L, Est GFR (MDRD) Non-Af 45 L, BUN/Creatinine Ratio 16.1, Glucose 100, Calcium 10.0, Troponin I 0.016 07/07/20 10:37: Lactic Acid 1.6 07/07/20 10:37: B-Natriuretic Peptide 403.3 H 07/07/20 10:37: PT 49.5 H, INR 5.4 H* Rhythm: As noted above EKG: As noted above ECHO: 05-20-2020 Interpretation Summary The study was technically difficult. Left ventricular systolic function is normal. The estimated ejection fraction is 65 %. Sigmoid septum. The left atrium is mildly enlarged. There is moderate to severe mitral annular calcification. Extension of the mitral annular calcification onto the mitral valve leaflet. Trivial mitral valve insufficiency. Trivial tricuspid valve insufficiency. Stable appearing mechanical aortic valve apparatus. Mild aortic stenosis. Trivial transvalvular insufficiency of the aortic valve. Trivial pulmonic valve insufficiency. Right ventricular systolic pressure estimated to be 24 mmHg. Transmitral diastolic flow velocities suggest diastolic dysfunction (pseudonormal pattern). CXR: Preliminary review: Portable chest x-ray; poststernotomy changes; elevated right hemidiaphragm; no acute changes; please see official report Assessment/Plan 1. Atrial fibrillation/flutter The patient has remained in underlying atrial fibrillation/flutter. This may be secondary to a combination of her age, hypertension, cardiovascular disease, pulmonary disease, etc. At the present time she is going to be monitored. She will continue with noninvasive cardiovascular evaluation as deemed appropriate. She will continue medical therapy. This will include rate control therapy with consideration to IV diltiazem therapy along with her oral beta-milka therapy. She is already on anticoagulant therapy. Her INR was reported as supratherapeutic. She will also need to be considered, depending upon her response to medical therapy, as to whether or not she is a candidate for antiarrhythmic therapy, as well as possible synchronized biphasic DC cardioversion. A synchronized biphasic DC cardioversion procedure was discussed with the patient with respect to the pros and cons and risks and benefits. She was agreeable to this approach. 2. Status post aortic valve: Mechanical aortic valve He does have a mechanical aortic valve prosthesis is noted. It was recently evaluated with transthoracic echocardiogram. It appeared to be stable. She will need to continue AHA antibiotic prophylaxis and anticoagulant therapy. 3. Thoracic aortic aneurysm Thoracic aorta has been followed noninvasively by studies such as transthoracic echocardiogram and chest CT scan. 4. CAD He has a history of CAD which was thought to be nonangiographically significant. Her initial troponin I level was negative. Her ECG did not demonstrate any acute electrocardiographic changes. She will need to continue risk factor modification medical therapy as deemed appropriate. 5. Hyperlipidemia Again she will continue risk factor modification medical therapy as deemed appropriate. 6. Hypertension Her blood pressure will be followed. She will continue medical management. 7. Bronchiectasis She will continue evaluation care per internal medicine and pulmonology. Comment: The patient's case has been discussed and reviewed with Dr. Mack of the [facility] emergency department staff. This note was generated using a voice recognition system and there may be incorrect words, spelling or punctuation that were not noted when reviewing the office note prior to saving. Procedure Criteria Procedure Type: Elective COVID Risk Discussion: The surgeon/proceduralist and patient have discussed in detail the risk of exposure to and/or potential harm posed by the COVID-19 virus with having a surgery/procedure at this time versus the risk of delaying the surgery/procedure. It is not possible to know either the risk of delaying the surgery or procedure or chance of getting an infection with perfect accuracy, but a joint decision was made between the patient and the surgeon/proceduralist to proceed at this time with the scheduled surgery/procedure as indicated on the consent form.
[2020-07-07 20:15] LABS: Magnesium 1.9 mg/dL (1.6-2.6)
[2020-07-07 20:27] LABS: AST(SGOT) 21 U/L (15-37); Alanine Aminotransfer ALT/SGPT 22 U/L (13-56); Albumin, Serum 3.7 g/dL (3.2-5.0); Alkaline Phosphatase 130 U/L (45-117); Bilirubin, Direct 0.14 mg/dL (0.00-0.30); Globulin 4.3 g/dL (2.2-4.2)
[2020-07-07] MEDS: 0.9% Saline Lock 10 ML Syringe IV ×3 (21:12→21:26)
[2020-07-07] MEDS: Furosemide 40 MG/4 ML Vial IV (21:13)
[2020-07-07] MEDS: Azelastine HCl NASAL.SRY 1 SPRAY NASAL (21:19)
[2020-07-07] MEDS: Pravastatin 80 MG Tablet PO (21:20)
[2020-07-07] MEDS: Montelukast 10 MG Tablet PO (21:20)
[2020-07-07] MEDS: Acetaminophen 325 MG Tablet 650 MG PO (22:51)
[2020-07-07] MEDS: Digoxin 250 MCG/ML Ampul 500 MCG IV (22:52)
[2020-07-08] VITALS (39 sets, daily range): BP systolic 91–144; BP diastolic 41–99; PULSE 71–114; RESP 11–25; TEMP 36.7–37.5; O2SAT 92–100
[2020-07-08 03:33] LABS: Absolute Lymphocyte Count 0.41 X10^3/uL (0.83-4.51); Absolute Neutrophil Count 7.1 X10^3/uL (2.0-7.7); Basophil# 0.02 X10^3/uL; Basophil% 0.3 % (0-1); Hematocrit 41.1 % (37-47); Hemoglobin 11.9 g/dL (12.0-15.0); Lymphocyte # 0.41 X10^3/ul (4.0); Lymphocyte % 5.4 % (19-41); Mean Corpuscular Hgb 23.5 pg (27.0-32.0); Mean Corpuscular Volume 81.1 fL (81-99); Mean Platelet Vol. 9.8 fl (6.2-12.0); Monocyte# 0.05 X10^3/uL; Monocyte% 0.7 % (0-10); NRBC Flagged by Analyzer 0 % (0-5); Neutrophil # 7.05 X10^3/uL (2.7-7.7); Neutrophil % 93.1 % (47-70); POSITIVE DIFFERENTIAL YES; Platelet Count 354 K/mm3 (150-450); RBC Distribution Width CV 17.9 % (11.6-14.6); RBC Distribution Width SD 52.8 fl (35.1-43.9); Red Blood Count 5.07 M/mm3 (4.2-5.4); White Blood Count 7.6 K/mm3 (4.4-11.0)
[2020-07-08 03:42] LABS: Differential Indicated SCAN CRITERIA MET
[2020-07-08 03:43] LABS: ALB/GLOB Ratio 0.8 RATIO (0.9-2.4); AST(SGOT) 22 U/L (15-37); Alanine Aminotransfer ALT/SGPT 20 U/L (13-56); Alkaline Phosphatase 110 U/L (45-117); Anion Gap 5 (5-15); BUN 16 mg/dL (7-18); BUN/Creat Ratio 15.1 RATIO (10-20); Calcium,Total 9.5 mg/dL (8.5-10.1); Chloride 105 mmol/L (98-107); Creatinine, Serum 1.06 mg/dL (0.55-1.02); EST Glomerular Filtration Rate 54 mL/min (>60); Est Glom Filt Rate - Afr Amer 65 mL/min (>60); Estimated Creatinine Clearance 37.93 ml/min; Globulin 3.9 g/dL (2.2-4.2); Glucose 131 mg/dL (74-106); Potassium 3.9 mmol/L (3.5-5.1); Protein, Total 6.9 g/dL (6.4-8.2); Sodium Level 137 mmol/L (136-145)
[2020-07-08 03:57] LABS: Differential Comment SCANNED; Platelet Estimate ADEQUATE (ADEQ)
[2020-07-08 04:00] LABS: Prothrombin Time (Protime)PT. > 120.0 SECONDS (11.7-14.9)
[2020-07-08 04:03] LABS: International Normalized Ratio > 19.5
--- NOTE | 2020-07-08 05:55 | EKG12_ITS ---
Test Reason : AM Blood Pressure : / mmHG Vent. Rate : 075 BPM Atrial Rate : 300 BPM P-R Int : 000 ms QRS Dur : 082 ms QT Int : 382 ms P-R-T Axes : 000 008 120 degrees QTc Int : [address] & T wave abnormality, consider lateral ischemia Abnormal ECG When compared with ECG of 07-JUL-2020 11:15, MANUAL COMPARISON REQUIRED, DATA IS UNCONFIRMED Confirmed by CHERELLE MAC, MARTIN ([id number]), video editor GARLAND WATSON ([id number]) on 07/19/2020 9:44:33 AM Referred By: Linda Rowley Confirmed By:TOM VILLARREAL MD
[2020-07-08] MEDS: 0.9% Saline Lock 10 ML Syringe IV ×3 (06:13→17:10)
[2020-07-08] MEDS: Ipratropium/Albuterol Sulfate 3 ML AMPUL.NEB INHALATION ×2 (06:45→20:42)
--- NOTE | 2020-07-08 07:47 | PCS.PANDOC ---
Addendum entered by Luisa See 07/08/20 07:50: Correction Date:07/07/2020 Time: 1944 Original Note: PANDEMIC DOCUMENTATION INITIATED: Date: 07/08/2020 Time: 699
--- NOTE | 2020-07-08 08:16 | EKG12_ITS ---
Test Reason : SOB Blood Pressure : / mmHG Vent. Rate : 146 BPM Atrial Rate : 144 BPM P-R Int : 000 ms QRS Dur : 082 ms QT Int : 308 ms P-R-T Axes : 000 021 151 degrees QTc Int : [address] & T wave abnormality, consider lateral ischemia Abnormal ECG Confirmed by TICO MAC, JARRED ([id number]), scientific editor BOBBY CARIAS ([id number]) on 07/09/2020 2:03:11 PM Referred By: Linda Rowley Confirmed By:JARRED DOSHI MD
--- NOTE | 2020-07-08 08:57 | PN.CARD_ITS ---
Subjectve: The patient is awake and alert at this time. She denies any ongoing chest discomfort, worsening shortness of breath/dyspnea, or palpitations. Objective: Vital Signs Temp Pulse Resp BP Pulse Ox 98.2 F 77 19 H 112/56 L 96 07/08/20 06:00 07/08/20 08:08 07/08/20 07:00 07/08/20 07:00 07/08/20 07:00 Oxygen Flow Rate (L/min) 2 Oxygen Delivery Method Nasal Cannula Weight: 169 lb 1.513 oz Body Mass Index (BMI) 30.2 Finger Stick Blood Glucose 93 Intake and Output for Last 24 Hours 07/06/20 07/07/20 07/08/20 23:59 23:59 23:59 Intake Total 36.25 / 43.75 162.5 / 162.5 Output Total 650 / 650 500 / 500 Balance -613.75 / -606.25 -337.5 / -337.5 General: Awake, Alert, Oriented x 3, Cooperative, No Acute Distress HEENT: Atraumatic, Normocephalic, PERRL, EOMI, Sclera Non Icteric Neck: Supple, Good ROM, No JVD Lungs: Rhonchi Cardiovascular: Regular Rhythm, Normal S1, [place] Prosthetic S2 Abdomen: Bowel Sounds Present, Soft Extremities: No edema Neurological: No Focal Motor or Sensory Deficit Psych/Mental Status: Appropriate 07/07/20 00:05: Troponin I < 0.015 07/07/20 10:37: WBC 10.5, RBC 5.55 H, Hgb 13.2, Hct 44.2, MCV 79.6 L, MCH 23.8 L , MCHC 29.9 L, Plt Count 448, MPV 9.8, Immature Gran % (Auto) 0.600, Neut % (Auto) 85.6 H, Lymph % (Auto) 7.2 L, [place] % (Auto) 5.0, Eos % (Auto) 1.0, Baso % (Auto) 0.6, Absolute Neuts (auto) 9.0 H, Nucleated RBC % 0 07/07/20 10:37: Sodium 139, Potassium 3.3 L, Chloride 102, Carbon Dioxide 30.0, Anion Gap 7, BUN 20 H, Creatinine 1.24 H, Est GFR (MDRD) Af Amer 54 L, Est GFR (MDRD) Non-Af 45 L, BUN/Creatinine Ratio 16.1, Glucose 100, Calcium 10.0, Troponin I 0.016 07/07/20 10:37: Lactic Acid 1.6 07/07/20 10:37: B-Natriuretic Peptide 403.3 H 07/07/20 10:37: PT 49.5 H, INR 5.4 H* 07/07/20 10:37: Total Bilirubin 0.40, Direct Bilirubin 0.14 07/07/20 10:37: Magnesium 1.9 07/07/20 20:31: Troponin I < 0.015 07/08/20 03:14: Sodium 137, Potassium 3.9, Chloride 105, Carbon Dioxide 27.0, Anion Gap 5, BUN 16, Creatinine 1.06 H, Est GFR (MDRD) Af Amer 65, Est GFR (MDRD) Non-Af 54 L, BUN/Creatinine Ratio 15.1, Glucose 131 H, Calcium 9.5, Total Bilirubin 0.50 07/08/20 03:14: PT > 120.0 H, INR > 19.5 H* 07/08/20 03:14: WBC 7.6, RBC 5.07, Hgb 11.9 L, Hct 41.1, MCV 81.1, MCH 23.5 L, MCHC 29.0 L, Plt Count 354, MPV 9.8, Immature Gran % (Auto) 0.500, Neut % (Auto) 93.1 H, Lymph % (Auto) 5.4 L, [place] % (Auto) 0.7, Eos % (Auto) 0.0, Baso % (Auto) 0.3, Absolute Neuts (auto) 7.1, Nucleated RBC % 0 07/08/20 03:14: Troponin I < 0.015 Rhythm: Atrial flutter with 4-1 AV block EKG: Appears compatible with an atypical atrial flutter with 4-1 AV block Medical Necessity - Tobacco Use Smoking Status: Never smoker Tobacco Use: Non-smoker Assessment/Plan 1. Atrial fibrillation/flutter The patient has remained in underlying atrial fibrillation/flutter. This may be secondary to a combination of her age, hypertension, cardiovascular disease, pulmonary disease, etc. At the present time she is going to be monitored. She will continue with noninvasive cardiovascular evaluation as deemed appropriate. She will continue medical therapy. This will include rate control therapy as deemed appropriate. She may or may not need to be considered for antiarrhythmic therapy and if so which antiarrhythmic would be appropriate for her based upon her underlying cardiopulmonary condition. She remains on anticoagulant therapy. Her INR was noted to be supratherapeutic potentially secondary to the addition of IV antibiotics and IV corticosteroids. Her warfarin is on hold at this time. Based upon her supratherapeutic INR, which is being reevaluated, she may need partial reversal of her anticoagulation status. Depending upon her course and findings she may need an attempt at synchronized biphasic DC cardioversion to regain sinus rhythm. However, may be reasonable, as her rate appears to be under better control at this time, to continue conservative medical management, attempt to improve her underlying cardiopulmonary condition, prior to proceeding with such a procedure. This could change depending upon her clinical course. 2. Status post aortic valve: Mechanical aortic valve He does have a mechanical aortic valve prosthesis is noted. It was recently evaluated with transthoracic echocardiogram. It appeared to be stable. She will need to continue AHA antibiotic prophylaxis and anticoagulant therapy. 3. Thoracic aortic aneurysm Thoracic aorta has been followed noninvasively by studies such as transthoracic echocardiogram and chest CT scan. 4. CAD He has a history of CAD which was thought to be nonangiographically significant. Her initial troponin I level was negative. Her ECG did not demonstrate any acute electrocardiographic changes. She will need to continue risk factor modification medical therapy as deemed appropriate. 5. Hyperlipidemia Again she will continue risk factor modification medical therapy as deemed appropriate. 6. Hypertension Her blood pressure will be followed. She will continue medical management. 7. Bronchiectasis She will continue evaluation care per internal medicine and pulmonology. Comment: The patient's case has been discussed and reviewed with Dr. Liz. This note was generated using a voice recognition system and there may be incorrect words, spelling or punctuation that were not noted when reviewing the office note prior to saving.
[2020-07-08 09:00] LABS: International Normalized Ratio 4.9
[2020-07-08] MEDS: Metoprolol(XL)Succ 50 MG Tablet PO (10:33)
[2020-07-08] MEDS: Aspirin 81 MG TAB.CHEW 162 MG PO (10:33)
[2020-07-08] MEDS: Digoxin 250 MCG Tablet PO (10:34)
--- NOTE | 2020-07-08 12:13 | PN_ITS ---
<Chung Selby - Last Filed: 07/08/20 12:13> Patient Problems: Active and Suspected Problems (Last Reviewed 07/07/20 @ 09:16 by Criss Govea) Atrial fibrillation with rapid ventricular response (Acute) Bronchiectasis with acute exacerbation (Acute) Respiratory insufficiency (Acute) Allergic rhinitis (Acute) Chronic anticoagulation (Acute) Reason for Visit: afib, SOB, cough Subjective: Pt with ongoing productive cough yellow/white mucus. Mild SOB. Stable on 2lpm O2. No CP/presure/palp. No LH/dizziness. Pt states she has dementia and has memory problems at night. She is anxious concerning having the cardioversion done today. Vitals/I&O's: Vital Signs Temp Pulse Resp BP Pulse Ox 98.2 F 83 18 95/75 98 07/08/20 06:00 07/08/20 11:42 07/08/20 11:42 07/08/20 11:42 07/08/20 11:42 Oxygen Flow Rate (L/min) 2 Oxygen Delivery Method Nasal Cannula Weight: 169 lb 1.513 oz Body Mass Index (BMI) 30.2 Finger Stick Blood Glucose 93 Intake and Output for Last 24 Hours 07/06/20 07/07/20 07/08/20 23:59 23:59 23:59 Intake Total 36.25 / 43.75 262.74 / 262.74 Output Total 650 / 650 500 / 500 Balance -613.75 / -606.25 -237.26 / -237.26 General: Alert, Oriented x3, Cooperative HEENT: Atraumatic, PERRLA, EOMI, Normocephalic Neck: Supple, No JVD, Negative Carotid Bruits Lungs: Diminished, Rales Cardiovascular: No murmurs, Irregular Rate Abdomen: Bowel Sounds Present, Soft, Non Tender Extremities: No edema, Capillary Refill Less than 3 Seconds Skin: No rashes, No breakdown Musculoskeletal: No Tenderness to Palpation of Joints or Extremities Neurological: Cranial nerves II-XII grossly intact Psych/Mental Status: Anxious, Alert and oriented to time, place, person, mood and affect Microbiology Past 72 Hours 07/07/20 16:15 Mucosa - Nasopharyngeal Respiratory Panel (PCR) - Final 07/07/20 10:40 Mucosa - Nose SARS-CoV-2 Antigen (Rapid) - Final Laboratory Results 07/07/20 00:05: Troponin I < 0.015 07/07/20 10:37: Total Bilirubin 0.40, Direct Bilirubin 0.14, AST 21, ALT 22, Alkaline Phosphatase 130 H, Total Protein 8.0, Albumin 3.7, Globulin 4.3 H 07/07/20 10:37: Magnesium 1.9 07/07/20 16:15: COVID-19 (DELFINA) Not Detected 07/07/20 20:31: Troponin I < 0.015 07/08/20 03:14: Sodium 137, Potassium 3.9, Chloride 105, Carbon Dioxide 27.0, Anion Gap 5, BUN 16, Creatinine 1.06 H, Estim Creat Clear Calc 37.93, Est GFR (MDRD) Af Amer 65, Est GFR (MDRD) Non-Af 54 L, BUN/Creatinine Ratio 15.1, Glucose 131 H, Calcium 9.5, Total Bilirubin 0.50, AST 22, ALT 20, Alkaline Phosphatase 110, Total Protein 6.9, Albumin 3.0 L, Globulin 3.9, Albumin/Globulin Ratio 0.8 L 07/08/20 03:14: PT > 120.0 H, INR > 19.5 H* 07/08/20 03:14: WBC 7.6, RBC 5.07, Hgb 11.9 L, Hct 41.1, MCV 81.1, MCH 23.5 L, MCHC 29.0 L, RDW Std Deviation 52.8 H, RDW Coeff of Loki 17.9 H, Plt Count 354, MPV 9.8, Immature Gran % (Auto) 0.500, Neut % (Auto) 93.1 H, Lymph % (Auto) 5.4 L, [place] % (Auto) 0.7, Eos % (Auto) 0.0, Baso % (Auto) 0.3, Absolute Neuts (auto) 7.1, Absolute Lymphs (auto) 0.41 L, Nucleated RBC % 0, Differential Comment SCANNED, Platelet Estimate ADEQUATE 07/08/20 03:14: Troponin I < 0.015 07/08/20 08:35: PT 46.0 H, INR 4.9 H* Current Medications Acetaminophen (Acetaminophen 325 Mg Tablet) 650 mg PO Q6H PRN PRN PRN Reason: Pain Score 1-10/Temp > 100.7 F Last Admin: 07/07/20 22:51 Dose: 650 mg Documented by: Al Hydroxide/Mg Hydroxide (Mag Hydrox/Al Hydrox/Simeth 30 Ml Udc) 30 ml PO Q6H PRN PRN PRN Reason: Gastric Burning Albuterol/Ipratropium (Ipratropium/Albuterol Sulfate 3 Ml Ampul.Neb) 3 ml INHALATION Q6HWA.RT [facility] Last Admin: 07/08/20 06:45 Dose: 3 ml Documented by: Aspirin (Aspirin 81 Mg Tab.Chew) 162 mg PO DAILY [facility] Last Admin: 07/08/20 10:33 Dose: 162 mg Documented by: Azelastine HCl (Azelastine Hcl Nasal.Sry) 1 spray NASAL BID [facility] Last Admin: 07/07/20 21:19 Dose: 1 spray Documented by: Bupropion HCl (Bupropion (Xl) 150 Mg Tablet.Xl) 150 mg PO DAILY [facility] Digoxin (Digoxin 250 Mcg Tablet) 250 mcg PO DAILY [facility] Last Admin: 07/08/20 10:34 Dose: 250 mcg Documented by: Ezetimibe (Ezetimibe 10 Mg Tablet) 10 mg PO DAILY [facility] Ergocalciferol (Ergocalciferol 50,000 Unit Capsule) 50,000 unit PO Fr@1000 [facility] Ferrous Sulfate (Ferrous Sulfate 325 Mg Tablet) 325 mg PO 1700 [facility] Furosemide (Furosemide 40 Mg/4 Ml Vial) 40 mg IV BID@1000,1800 [facility] Last Admin: 07/07/20 21:13 Dose: 40 mg Documented by: Diltiazem HCl 125 mg/ Dextrose 125 mls @ 5 mls/hr IV .Q25H [facility]; Protocol Last Titration: 07/08/20 11:42 Dose: 0 mg/hr, 0 mls/hr Documented by: Piperacillin Sod/Tazobactam (Sod 3.375 gm/ Sodium Chloride) 50 mls @ 12.5 mls/hr IV Q8 [facility] Last Infusion: 07/08/20 10:11 Dose: Infused Documented by: Sodium Chloride () 500 mls @ 15 mls/hr IV .[id number] [facility] Lorazepam (Lorazepam 0.5 Mg Tablet) 0.5 mg PO BID PRN PRN PRN Reason: ANXIETY Methylprednisolone (Methylprednisolone 40 Mg/Ml Vial) 40 mg IV Q8 [facility] Last Admin: 07/08/20 06:12 Dose: 40 mg Documented by: Metoprolol Succinate (Metoprolol(Xl)Succ 50 Mg Tablet) 50 mg PO DAILY [facility] Last Admin: 07/08/20 10:33 Dose: 50 mg Documented by: Montelukast Sodium (Montelukast 10 Mg Tablet) 10 mg PO QHS [facility] Last Admin: 07/07/20 21:20 Dose: 10 mg Documented by: Nutritional Formula (Lactose Free) (Ensure Enlive 120 Ml Liquid) 120 ml PO 4X/DAY [facility] Last Admin: 07/08/20 09:19 Dose: Not Given Documented by: Ondansetron HCl (Ondansetron 4 Mg/2 Ml Vial) 4 mg IV Q8H PRN PRN PRN Reason: NAUSEA/VOMITING Pantoprazole Sodium (Pantoprazole Sodium 40 Mg Tablet) 40 mg PO BID [facility] Last Admin: 07/07/20 21:17 Dose: Not Given Documented by: Paroxetine HCl (Paroxetine 20 Mg Tablet) 20 mg PO DAILY [facility] Potassium Chloride (Potassium Ch[facility] 20 M[facility]t) [facility] Last Admin: 07/08/20 10:34 Dose: 20 meq Documented by: Pravastatin Sodium (Pravastatin 80 Mg Tablet) 80 mg PO QHS [facility] Last Admin: 07/07/20 21:20 Dose: 80 mg Documented by: Sodium Chloride (0.9% Saline Lock 10 Ml Syringe) 10 - 40 ml IV UD PRN PRN Reason: SALINE FLUSH Last Admin: 07/08/20 06:13 Dose: 10 ml Documented by: STROKE Vital Signs/Narrative: Vital Signs Pulse Resp BP Pulse Ox 07/08/20 11:42 83 18 95/75 98 07/08/20 11:15 77 18 118/54 L 100 07/08/20 11:00 79 18 117/60 100 07/08/20 10:45 76 16 111/58 L 100 07/08/20 10:33 79 07/08/20 10:30 76 15 110/55 L 100 07/08/20 10:15 76 14 103/70 99 07/08/20 10:00 79 17 111/59 L 99 07/08/20 09:45 76 17 109/41 L 99 07/08/20 09:30 71 18 100 07/08/20 09:00 75 13 108/60 100 Medical Necessity - Tobacco Use Smoking Status: Never smoker Tobacco Use: Non-smoker Assessment/Plan All Active Problems (Last Reviewed 07/07/20 @ 09:16 by Criss Govea) Atrial fibrillation with rapid ventricular response (Acute) Bronchiectasis with acute exacerbation (Acute) Respiratory insufficiency (Acute) Cough (Acute) Allergic rhinitis (Acute) Chronic anticoagulation (Acute) Hemoptysis (Acute) Syncope and collapse (Resolved) 1. Afib rvr - rate improved. cardiology following. inr supratherapeutic - hold warfarin. Cardioversion today. Pt to come off cardizem drip today, and started digoxin. on toprol. 2. Acute bronchiectasis exacerbation - continue zosyn. hx pseudomonas sensitive to zosyn. resp panel neg. covid neg. 3. s/p mechanical aortic valve - will need to continue warfarin when INR improved. 4. acute on chronic diastolic CHF - continue IV lasix. 5. CKDIII - improving in diuretics 6. Dementia - pt reports she knows she has a hx of dementia and has struggled with sundowning. DVT ppx: inr 4.9 DC planning: will need monitored overnight post cardioversion with new antiarrhythmics This patient was seen by Chung Selby PA-C under the supervision of Doctor Shalonda. <Chu Liz F - Last Filed: 07/08/20 15:28> Vitals/I&O's: Vital Signs Temp Pulse Resp BP Pulse Ox 99.3 F H 93 19 H 144/83 H 92 07/08/20 14:00 07/08/20 14:37 07/08/20 14:37 07/08/20 14:00 07/08/20 14:37 Oxygen Flow Rate (L/min) 2 Oxygen Delivery Method Room Air Weight: 169 lb 1.513 oz Body Mass Index (BMI) 30.2 Finger Stick Blood Glucose 93 Intake and Output for Last 24 Hours 07/06/20 07/07/20 07/08/20 23:59 23:59 23:59 Intake Total 36.25 / 43.75 270.99 / 270.99 Output Total 650 / 650 500 / 500 Balance -613.75 / -606.25 -229.01 / -229.01 Microbiology Past 72 Hours 07/07/20 16:15 Mucosa - Nasopharyngeal Respiratory Panel (PCR) - Final 07/07/20 10:40 Mucosa - Nose SARS-CoV-2 Antigen (Rapid) - Final Laboratory Results 07/07/20 00:05: Troponin I < 0.015 07/07/20 10:37: Total Bilirubin 0.40, Direct Bilirubin 0.14, AST 21, ALT 22, Alkaline Phosphatase 130 H, Total Protein 8.0, Albumin 3.7, Globulin 4.3 H 07/07/20 10:37: Magnesium 1.9 07/07/20 16:15: COVID-19 (DELFINA) Not Detected 07/07/20 20:31: Troponin I < 0.015 07/08/20 03:14: Sodium 137, Potassium 3.9, Chloride 105, Carbon Dioxide 27.0, Anion Gap 5, BUN 16, Creatinine 1.06 H, Estim Creat Clear Calc 37.93, Est GFR (MDRD) Af Amer 65, Est GFR (MDRD) Non-Af 54 L, BUN/Creatinine Ratio 15.1, Glucose 131 H, Calcium 9.5, Total Bilirubin 0.50, AST 22, ALT 20, Alkaline Phosphatase 110, Total Protein 6.9, Albumin 3.0 L, Globulin 3.9, Albumin/Globulin Ratio 0.8 L 07/08/20 03:14: PT > 120.0 H, INR > 19.5 H* 07/08/20 03:14: WBC 7.6, RBC 5.07, Hgb 11.9 L, Hct 41.1, MCV 81.1, MCH 23.5 L, MCHC 29.0 L, RDW Std Deviation 52.8 H, RDW Coeff of Loki 17.9 H, Plt Count 354, MPV 9.8, Immature Gran % (Auto) 0.500, Neut % (Auto) 93.1 H, Lymph % (Auto) 5.4 L, [place] % (Auto) 0.7, Eos % (Auto) 0.0, Baso % (Auto) 0.3, Absolute Neuts (auto) 7.1, Absolute Lymphs (auto) 0.41 L, Nucleated RBC % 0, Differential Comment SCA NNED, Platelet Estimate ADEQUATE 07/08/20 03:14: Troponin I < 0.015 07/08/20 08:35: PT 46.0 H, INR 4.9 H* Current Medications Acetaminophen (Acetaminophen 325 Mg Tablet) 650 mg PO Q6H PRN PRN PRN Reason: Pain Score 1-10/Temp > 100.7 F Last Admin: 07/07/20 22:51 Dose: 650 mg Documented by: Al Hydroxide/Mg Hydroxide (Mag Hydrox/Al Hydrox/Simeth 30 Ml Udc) 30 ml PO Q6H PRN PRN PRN Reason: Gastric Burning Albuterol/Ipratropium (Ipratropium/Albuterol Sulfate 3 Ml Ampul.Neb) 3 ml INHALATION Q6HWA.RT [facility] Last Admin: 07/08/20 06:45 Dose: 3 ml Documented by: Amiodarone HCl (Amiodarone 200 Mg Tablet) 200 mg PO TID [facility] Stop: 07/12/20 22:01 Last Admin: 07/08/20 15:07 Dose: 200 mg Documented by: Amiodarone HCl (Amiodarone 200 Mg Tablet) 200 mg PO BID [facility] Stop: 07/26/20 22:01 Amiodarone HCl (Amiodarone 200 Mg Tablet) 200 mg PO DAILY [facility] Aspirin (Aspirin 81 Mg Tab.Chew) 162 mg PO DAILY [facility] Last Admin: 07/08/20 10:33 Dose: 162 mg Documented by: Azelastine HCl (Azelastine Hcl Nasal.Sry) 1 spray NASAL BID [facility] Last Admin: 07/08/20 12:49 Dose: 1 spray Documented by: Bupropion HCl (Bupropion (Xl) 150 Mg Tablet.Xl) 150 mg PO DAILY [facility] Last Admin: 07/08/20 14:31 Dose: 150 mg Documented by: Ezetimibe (Ezetimibe 10 Mg Tablet) 10 mg PO DAILY [facility] Last Admin: 07/08/20 14:31 Dose: 10 mg Documented by: Ergocalciferol (Ergocalciferol 50,000 Unit Capsule) 50,000 unit PO Fr@1000 [facility] Ferrous Sulfate (Ferrous Sulfate 325 Mg Tablet) 325 mg PO 1700 [facility] Furosemide (Furosemide 40 Mg/4 Ml Vial) 40 mg IV BID@1000,1800 [facility] Last Admin: 07/08/20 12:49 Dose: 40 mg Documented by: Diltiazem HCl 125 mg/ Dextrose 125 mls @ 5 mls/hr IV .Q25H [facility]; Protocol Last Titration: 07/08/20 11:42 Dose: 0 mg/hr, 0 mls/hr Documented by: Piperacillin Sod/Tazobactam (Sod 3.375 gm/ Sodium Chloride) 50 mls @ 12.5 mls/hr IV Q8 [facility] Last Admin: 07/08/20 15:08 Dose: 12.5 mls/hr Documented by: Sodium Chloride () 500 mls @ 15 mls/hr IV .[id number] [facility] Last Infusion: 07/08/20 13:05 Dose: 0 mls/hr Documented by: Lorazepam (Lorazepam 0.5 Mg Tablet) 0.5 mg PO BID PRN PRN PRN Reason: ANXIETY Methylprednisolone (Methylprednisolone 40 Mg/Ml Vial) 40 mg IV Q8 [facility] Last Admin: 07/08/20 14:31 Dose: 40 mg Documented by: Metoprolol Succinate (Metoprolol(Xl)Succ 50 Mg Tablet) 50 mg PO DAILY [facility] Last Admin: 07/08/20 10:33 Dose: 50 mg Documented by: Montelukast Sodium (Montelukast 10 Mg Tablet) 10 mg PO QHS [facility] Last Admin: 07/07/20 21:20 Dose: 10 mg Documented by: Nutritional Formula (Lactose Free) (Ensure Enlive 120 Ml Liquid) 120 ml PO 4X/DAY [facility] Last Admin: 07/08/20 14:36 Dose: Not Given Documented by: Ondansetron HCl (Ondansetron 4 Mg/2 Ml Vial) 4 mg IV Q8H PRN PRN PRN Reason: NAUSEA/VOMITING Pantoprazole Sodium (Pantoprazole Sodium 40 Mg Tablet) 40 mg PO BID [facility] Last Admin: 07/08/20 14:32 Dose: 40 mg Documented by: Paroxetine HCl (Paroxetine 20 Mg Tablet) 20 mg PO DAILY [facility] Last Admin: 07/08/20 14:32 Dose: 20 mg Documented by: Potassium Chloride (Potassium Chloride 20 Meq Tablet) 20 meq PO DAILYCM [facility] Last Admin: 07/08/20 10:34 Dose: 20 meq Documented by: Pravastatin Sodium (Pravastatin 80 Mg Tablet) 80 mg PO QHS [facility] Last Admin: 07/07/20 21:20 Dose: 80 mg Documented by: Sodium Chloride (0.9% Saline Lock 10 Ml Syringe) 10 - 40 ml IV UD PRN PRN Reason: SALINE FLUSH Last Admin: 07/08/20 12:32 Dose: 20 ml Documented by: STROKE Vital Signs/Narrative: Vital Signs Temp Pulse Resp BP BP Pulse Ox 07/08/20 14:37 93 19 H 92 07/08/20 14:00 99.3 F H 93 18 144/83 H 94 07/08/20 13:30 100 15 127/99 H 93 07/08/20 13:15 85 20 H 108/58 L 93 07/08/20 12:58 89 11 L 106/68 93 07/08/20 12:45 84 13 105/57 L 94 07/08/20 12:30 84 22 H 100/66 96 07/08/20 12:00 99.5 F H 114 H 17 106/63 96 07/08/20 11:42 83 18 95/75 98 Addendum: Dr. Liz I personally examined the patient and reviewed the chart. I agree with the above. 74-year-old female with a medical history of aortic valve replacement/H TN/HLD presented to the hospital with shortness of breath as well as tachycardia. Initially it looked to be SVT and then as it slowed down he will click 4-1 flutter. Her INR was elevated initially to 5.4 therefore her Coumadin was held but she was not given any reversal agent and a subsequent INR was elevated to 19 however this was felt to be lab error so it was repeated and was found to be 4.9. She was not reversed however while her heart rate was controlled on Cardizem once the Cardizem was discontinued and she became a little bit active her heart rate increased into the 130s again. Cardiology cardioverted her sinus rhythm. As for her bronchiectasis, her inhalers were discontinued secondary to the concern that albuterol could be contributing to her tachycardia. Also her lung sounds were not terrible therefore continue with just steroids for now as well as Zosyn as she had grown Pseudomonas in the past that was sensitive. Inpatient E&M: 57056 Subs Hosp L2
--- NOTE | 2020-07-08 12:33 | EKG12_ITS ---
Test Reason : DCCV Blood Pressure : / mmHG Vent. Rate : 083 BPM Atrial Rate : 083 BPM P-R Int : 186 ms QRS Dur : 084 ms QT Int : 382 ms P-R-T Axes : 009 014 085 degrees QTc Int : 448 ms Normal sinus rhythm Normal ECG When compared with ECG of 08-JUL-2020 08:29, MANUAL COMPARISON REQUIRED, DATA IS UNCONFIRMED Confirmed by CHERELLE MAC, MARTIN ([id number]), acquisition editor GARLAND WATSON ([id number]) on 07/19/2020 9:20:43 AM Referred By: Linda Rowley Confirmed By:TOM VILLARREAL MD
--- NOTE | 2020-07-08 12:33 | CARDIOVERS ---
Cardioversion Cardioversion: Date: 07-08-2020 Procedure: Synchronized Biphasic DC Cardioversion Indications: Atrial fibrillation/flutter Consent: Per the Patient Anesthesia: per Dr. Hall of pulmonology and critical care medicine with propofol 100 mg IV push total Procedure: Synchronized Biphasic DC Cardioversion: 200 J x 1: Result: Sinus rhythm; PACs Complications: no apparent complications This note was generated with [employer] software. It may contain incorrect words, spelling, and punctuation that were not noted in checking the note before signing.
[2020-07-08] MEDS: Furosemide 40 MG/4 ML Vial IV ×2 (12:49→17:09)
[2020-07-08] MEDS: Azelastine HCl NASAL.SRY 1 SPRAY NASAL ×2 (12:49→21:27)
--- NOTE | 2020-07-08 13:10 | CASEMGMT ---
CARLOS SINGER assessment: Face to Face with patient for initial transition planning/care coordination assessment. CARLOS SINGER introduced self and role at [facility], pt voices understanding and consents to assessment at this time. Pt is lying in bed in no distress at this time. Pt is A/Ox4 at this time and answers all questions appropriately at this time. Pt is currently on room air at this time. Care providers, pharmacy, and demographics verified at this time. Presentation: Pt sent in by Woody's office for tachy rhythm, pt c/o SOB-pt states SOB for 3 months Admitting dx: Tachycardia, COPD PCP: Chantal Specialists: Alex pulm; Woody, cardio; [facility] Preferred Pharmacy: [facility] Insurance: [employer] A/B, [facility] Prescription Benefit: Yes Living Will/HPOA: Pt states has LW/HPOA and is aware that they are not on file at [facility] at this time. Pt states her , Dominic Griffin, is HPOA. LNOK: Dominic Griffin, Living Arrangements: Pt states lives with in 1 story home with 1 step in and states no concerns at home at this time. Pt states is independent with ADL's but assists, if needed. Transportation: Pt states drives self and states no transportation concerns at this time. DME/HHC: Pt states has the following DME: cane, walker, and nebulizer. Pt states no need for any further DME at this time. 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 Pt states no hx of HHC or SNF in the past. Pt states no concerns with going home at time of discharge. Pt states is retired. Pt states does not smoke cigarettes or drink ETOH. Pt states no further concerns/needs at this time. CM to follow for PT/OT evals, for home oxygen need and any further discharge planning/needs. Advised pt to ask for CM if any further questions/concerns/needs arise, voices understanding. Pt Goal: Home Plan: [place] CARLOS SINGER
--- NOTE | 2020-07-08 13:48 | PRO.PCM_ITS ---
Problem List (1) Atrial fibrillation with rapid ventricular response Status: Acute (2) Bronchiectasis with acute exacerbation Status: Acute (3) Respiratory insufficiency Status: Acute (4) Aneurysm, thoracic aortic Status: Chronic Qualifiers: Presence of rupture: without rupture Qualified Code(s): I71.2 - Thoracic aortic aneurysm, without rupture (5) Chronic diastolic heart failure Status: Chronic (6) HERLINDA (obstructive sleep apnea) Status: Chronic (7) Pseudomonas respiratory infection Status: Chronic Comment: History of recurrent pseudomonal infections in the past (8) History of mechanical aortic valve replacement Status: Chronic Comment: [id number], 2003, Redo AVR 10/10 (#21 On-X mechanical valve) (9) Allergic rhinitis Status: Acute Qualifiers: Allergic rhinitis trigger: unspecified Allergic rhinitis seasonality: unspecified Qualified Code(s): J30.9 - Allergic rhinitis, unspecified (10) GERD (gastroesophageal reflux disease) Status: Chronic (11) Chronic anticoagulation Status: Acute (12) Aneurysm, thoracic aortic Status: Chronic Qualifiers: Presence of rupture: without rupture Qualified Code(s): I71.2 - Thoracic aortic aneurysm, without rupture (13) Asthma Status: Chronic Qualifiers: Asthma severity: unspecified severity Asthma persistence: unspecified Asthma complication type: unspecified Qualified Code(s): J45.909 - Unspecified asthma, uncomplicated (14) Chronic sinusitis Status: Chronic Qualifiers: Sinusitis location: unspecified location Qualified Code(s): J32.9 - Chronic sinusitis, unspecified Comment: H/O Pseudomonas, MRSA Procedure Report Date of Procedure: 07/08/20 - Conscious sedation, independent of consult CONSCIOUS SEDATION REPORT BRIEF HISTORY OF PRESENT ILLNESS: The patient is a 74-year-old female who presented to [facility] for progressive shortness of breath and was found to be in A. fib with RVR. The patient reports no PO intake since midnight. The patient does have a history of obstructive sleep apnea. The patient reports no history of smoking and COPD. The patient denies any recent constitutional symptoms such as fevers, chills, nausea or vomiting. The patient denies previous anesthetic complications. Patient's last ejection fraction was 65% and she is currently anticoagulated with Coumadin. This procedure was completed independently of consultation for bronchiectasis exacerbation. PHYSICAL EXAMINATION: VITAL SIGNS: Reviewed and were acceptable. GENERAL: The patient is a female, in no apparent distress, speaking in full sentences. HEENT: Normocephalic, atraumatic. Mucous membranes are moist and pink. Good mouth opening noted. Trachea is midline. Good neck mobility. MP II CHEST: S1, S2 irregularly irregular. No murmurs, rubs or gallops were noted. LUNGS: Clear to auscultation bilaterally without appreciable wheezes, rales or rhonchi. ABDOMEN: Soft, nontender, nondistended. Positive bowel sounds. EXTREMITIES: There is no clubbing, cyanosis or edema. ASA Class: II DESCRIPTION OF PROCEDURE: After confirmation of informed consent, the patient's anesthesia plan was reviewed in detail. Propofol was chosen. Risks and benefits were reviewed and the patient agreed to proceed. At 12:14 PM, the patient was given 40 mg of propofol. The patient required a total of 100 mg of propofol throughout the procedure to achieve appropriate sedation. The patient achieved an appropriate level of sedation and received 1 attempt synchronized cardioversion, at [address] Mckay at the bedside. This was successful in achieving normal sinus rhythm. The patient was monitored until 12:30 PM, at which time the patient reached their baseline mental status and function. The patient tolerated the procedure well. COMPLICATIONS: None ESTIMATED BLOOD LOSS: None RECOMMENDATIONS: Okay to recover in usual fashion. [id number]: Other Procedure See Report - 26175 -16 minutes conscious sedation
--- NOTE | 2020-07-08 14:14 | PCM.CONS.PUL ---
Problem List (1) Atrial fibrillation with rapid ventricular response Status: Acute (2) Bronchiectasis with acute exacerbation Status: Acute (3) Respiratory insufficiency Status: Acute (4) Aneurysm, thoracic aortic Status: Chronic Qualifiers: Presence of rupture: without rupture Qualified Code(s): I71.2 - Thoracic aortic aneurysm, without rupture (5) Chronic diastolic heart failure Status: Chronic (6) HERLINDA (obstructive sleep apnea) Status: Chronic (7) Pseudomonas respiratory infection Status: Chronic Comment: History of recurrent pseudomonal infections in the past (8) History of mechanical aortic valve replacement Status: Chronic Comment: [id number], 2003, Redo AVR 10/10 (#21 On-X mechanical valve) (9) Allergic rhinitis Status: Acute Qualifiers: Allergic rhinitis trigger: unspecified Allergic rhinitis seasonality: unspecified Qualified Code(s): J30.9 - Allergic rhinitis, unspecified (10) GERD (gastroesophageal reflux disease) Status: Chronic (11) Chronic anticoagulation Status: Acute (12) Aneurysm, thoracic aortic Status: Chronic Qualifiers: Presence of rupture: without rupture Qualified Code(s): I71.2 - Thoracic aortic aneurysm, without rupture (13) Asthma Status: Chronic Qualifiers: Asthma severity: unspecified severity Asthma persistence: unspecified Asthma complication type: unspecified Qualified Code(s): J45.909 - Unspecified asthma, uncomplicated (14) Chronic sinusitis Status: Chronic Qualifiers: Sinusitis location: unspecified location Qualified Code(s): J32.9 - Chronic sinusitis, unspecified Comment: H/O Pseudomonas, MRSA Reason for Consult Date of Consultation: 07/08/20 Reason for Consultation: Possible bronchiectasis exacerbation History of Present Illness: The patient is a 74 year old F, with past medical history listed below and cared for by Dr. Johnson in our office, who presented to [facility] on 07/07/2020 secondary to progression in shortness of breath over the last week. 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 Patient was sent to the ER for evaluation. Patient does have a history of a mechanical heart valve and is on Coumadin. Patient reportedly had an echocardiogram in April showing an EF of 65%, but denied any lower extremity swelling. Patient did not report any exposure to COVID-19 and had not had any recent travel. Patient does not wear oxygen at baseline. On evaluation in the ER, patient was noted to be tachycardic at 144 bpm. Patient did have a good systolic click reported by ER staff. Patient also had a chest x-ray showing a stable large hiatal hernia and elevation of the right hemidiaphragm. No infiltrates were noted. Laboratory work-up showed a WBC count of 10.5, potassium of 3.3, creatinine of 1.24 and a lactate of 1.6. Patient's INR was slightly elevated at 5.4 and BNP was elevated at 403. Patient was given an albuterol treatment with improvement in her dyspnea, but heart rates were still accelerated. Patient was given Cardizem, but did have some issues with hypotension. Dr. Johnson was consulted from the ER and had pointed out the patient had grown Enmanuel cepacia and Pseudomonas in the past and recommended a 10-day course of Levaquin. While still in the ER, patient had an oral dose of Cardizem, but became very dyspneic and had heart rates in the 150s with ambulation, so was admitted to the floor. Since being admitted to the floor, patient reported that she was relatively unchanged compared to previous. Patient does continue to have a cough productive of green to yellow sputum, but does not believe this has increased in frequency, consistency or texture. Patient states that she has not had any hemoptysis. No chest pain has been reported. Patient is not reporting any fevers, chills, nausea or vomiting. Patient is not reporting any urinary symptoms. No bleeding complications have been reported despite increased INR. Review of systems otherwise negative from a constitutional, HEENT, respiratory, cardiovascular, GI, genitourinary, musculoskeletal, skin, neurologic, psychiatric and hematologic system unless stated above. Patient was clear that she is a DNR Comfort Care arrest without intubation Past Medical History Past Medical History (Chronic Problems): Chronic Problems (Last Reviewed 07/07/20 @ 09:16 by Criss Govea) Aneurysm, thoracic aortic (Chronic) Chronic diastolic heart failure (Chronic) HERLINDA (obstructive sleep apnea) (Chronic) Pseudomonas respiratory infection (Chronic) History of recurrent pseudomonal infections in the past Bronchiectasis (Chronic) History of mechanical aortic valve replacement (Chronic ~10/07/13) [id number], Redo AVR 10/10 (#21 On-X mechanical valve) Essential hypertension (Chronic) GERD (gastroesophageal reflux disease) (Chronic) Hypoxemia (Chronic) Anxiety (Chronic) Atherosclerotic heart disease of [place] coronary artery without angina pectoris (Chronic) Mild Palpitations (Chronic) Nonspecific chest pain (Chronic) Aneurysm, thoracic aortic (Chronic) Nonrheumatic aortic valve regurgitation (Chronic) Fatigue (Chronic) Hyperlipidemia (Chronic) Obesity (Chronic) Asthma (Chronic) Chronic sinusitis (Chronic) H/O Pseudomonas, MRSA Medical History: Medical History (Last Reviewed 07/07/20 @ 09:16 by Criss Govea) Chronic diastolic heart failure (Chronic) I50.32 Bronchiectasis (Chronic) J47.9 Essential hypertension (Chronic) I10 Cough (Acute) R05 Allergic rhinitis (Acute) J30.9 GERD (gastroesophageal reflux disease) (Chronic) K21.9 Hypoxemia (Chronic) R09.02 Anxiety (Chronic) F41.9 Chronic anticoagulation (Acute) Z79.01 Hemoptysis (Acute) R04.2 Atherosclerotic heart disease of [place] coronary artery without angina pectoris (Chronic) I25.10 Mild Palpitations (Chronic) R00.2 Nonspecific chest pain (Chronic) R07.9 Aneurysm, thoracic aortic (Chronic) I71.2 Nonrheumatic aortic valve regurgitation (Chronic) I35.1 Fatigue (Chronic) R53.83 Hyperlipidemia (Chronic) E78.5 Obesity (Chronic) E66.9 Asthma (Chronic) J45.909 Chronic sinusitis (Chronic) J32.9 H/O Pseudomonas, MRSA Depression F32.9 Hiatal hernia K44.9 Aortic stenosis I35.0 S/P AVR in February 2004 with Mitchell Hernandez; redo AVR in September 2013 with a #21 O-X mechanical valve CAP (community acquired pneumonia) J18.9 Severe sepsis A41.9, R65.20 Syncope and collapse (Resolved) R55 Chronic a-fib (Inactive) I48.2 Hypertension (Inactive) I10 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 (Inactive) Allergies donepezil Allergy (Severe, Verified 07/07/20 09:17) shortness of breath Sulfa (Sulfonamide Antibiotics) Allergy (Verified 07/07/20 09:17) Swelling celecoxib [From Celebrex] Adverse Reaction (Severe, Verified 07/07/20 09:17) Swelling dextromethorphan [From Delsym] Adverse Reaction (Severe, Verified 07/07/20 09:17) hallucination adhesive Adverse Reaction (Verified 07/07/20 09:17) blisters BLISTERS codeine Adverse Reaction (Verified 07/07/20 09:17) Itching levofloxacin [From Levaquin] Adverse Reaction (Verified 07/07/20 09:17) pain in legs and swelling PAIN IN LEG AND SWELLING lisinopril Adverse Reaction (Verified 07/07/20:17) cough oxycodone [Oxycodone] Adverse Reaction (Verified 07/07/20 09:17) Itching oxycodone HCl [From Percocet] Adverse Reaction (Verified 07/07/20:17) Itching AND MAKES HEAD FEEL FUNNY Penicillins Adverse Reaction (Verified 07/07/20 09:17) heart palpitations HEART PALPITATIONS prochlorperazine edisylate [From Compazine] Adverse Reaction (Verified 07/07/20 09:17) Low blood pressure prochlorperazine maleate [From Compazine] Adverse Reaction (Verified 07/07/20 09:17) Low blood pressure tramadol HCl [From Ultram] Adverse Reaction (Verified 07/07/20 09:17) Itching Home Medications: Ambulatory Orders Medication Instructions Recorded Pantoprazole Sodium [Protonix] 40 mg PO BID 01/14/15 buPROPion XL [Wellbutrin Xl] 150 mg PO DAILY 11/15/15 Montelukast [Singulair] 10 mg PO QHS 05/03/17 Potassium Chloride [K-Dur] 20 meq PO DAILY 05/03/17 aspirin 81 mg chewable tablet 162 mg PO DAILY tab 09/04/17 lorazepam 0.5 mg tablet 0.5 mg PO BID PRN 09/04/17 Warfarin [Coumadin] 5 mg PO SUMOWEFR 12/03/17 Furosemide [Lasix] 40 mg PO DAILY #0 12/06/17 albuterol sulfate 2.5 mg INHALATION Q4H PRN 12/20/17 cholecalciferol (vitamin D3) 1,250 50,000 unit PO FR 06/16/19 mcg (50,000 unit) capsule ezetimibe 10 mg tablet 10 mg PO DAILY #90 tab 08/07/19 pravastatin 80 mg tablet 80 mg PO QHS #90 tab 08/13/19 Warfarin [Coumadin (PBKC)] 3 mg PO TUTHSA 12/02/19 albuterol sulfate 90 mcg/actuation 2 puff INHALATION Q4H PRN #18 g 12/09/19 aerosol inhaler azelastine 137 mcg (0.1 %) nasal 1 spray INTRANASAL BID #30 ml 01/19/20 spray aerosol budesonide-formoterol HFA 160 2 inh INHALATION BID #10.2 g 01/26/20 mcg-4.5 mcg/actuation aerosol inhaler ferrous sulfate 325 mg (65 mg 325 mg PO DAILY 05/10/20 iron) tablet tiotropium bromide 2.5 2 puff INHALATION QDAY #4 g 05/10/20 mcg/actuation mist for inhalation metoprolol succinate 50 mg 50 mg PO DAILY #90 tab 07/06/20 tablet,extended release 24 hr Acetaminophen [Tylenol Arthritis] 650 mg PO Q6H PRN 07/07/20 Paroxetine HCl 20 mg PO DAILY 07/07/20 Surgical History: Surgical History (Last Reviewed 07/07/20 @ 09:16 by Criss Govea) History of mechanical aortic valve replacement (Chronic) Onset Date: ~10/07/13 Z95.2 [id number]-Jczclx, 2003, Redo AVR 10/10 (#21 On-X mechanical valve) History of back surgery Z98.890 History of foot surgery Z98.890 History of hysterectomy Z90.710 History of sinus surgery Z98.890 H/O aortic valve replacement (Inactive) Z95.2 [id number]-Xchkrd, 2003, Redo AVR 10/10 (#21 On-X mechanical valve) Surgical History: hysterectomy, - - 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 hx CHANNEL MAN History: No pertinent CHANNEL MAN history Lives: Spouse/ Significant Other Smoking Status: Never smoker Tobacco Use: Non-smoker Alcohol: None Drugs: None - *Family History Paternal Family History: Family History (Last Reviewed 07/07/20 @ 09:16 by Criss Govea) Mother Arthritis CAD (coronary artery disease) Father Arthritis High cholesterol CAD (coronary artery disease) Sister Diabetes High cholesterol Hypertension Brother Diabetes High cholesterol Hypertension History Items: Heart Disease - age 76 Maternal Family History: Family History (Last Reviewed 07/07/20 @ 09:16 by Criss Govea) Mother Arthritis CAD (coronary artery disease) Father Arthritis High cholesterol CAD (coronary artery disease) Sister Diabetes High cholesterol Hypertension Brother Diabetes High cholesterol Hypertension History Items: - - PD Sibling Family History: Family History (Last Reviewed 07/07/20 @ 09:16 by Criss Govea) Mother Arthritis CAD (coronary artery disease) Father Arthritis High cholesterol CAD (coronary artery disease) Sister Diabetes High cholesterol Hypertension Brother Diabetes High cholesterol Hypertension History Items: Diabetes Review of Systems Comment: See HPI Patient Problems: Active and Suspected Problems (Last Reviewed 07/07/20 @ 09:16 by Criss Govea) Atrial fibrillation with rapid ventricular response (Acute) Bronchiectasis with acute exacerbation (Acute) Respiratory insufficiency (Acute) Allergic rhinitis (Acute) Chronic anticoagulation (Acute) Objective: Chest x-ray was personally reviewed and showed no significant change from baseline. Patient's last pulmonary function test was completed in January 2020 showing a moderately severe obstructive ventilatory defect with symmetric reduction diffusion capacity (FVC 57%, FEV1 52%, TLC 84%, RV 118%, DLCO 55%) - Physical Exam Vitals/I&O's: Vital Signs Temp Pulse Resp BP Pulse Ox 37.5 C H 100 15 127/99 H 93 07/08/20 12:00 07/08/20 13:30 07/08/20 13:30 07/08/20 13:30 07/08/20 13:30 Oxygen Flow Rate (L/min) 2 Oxygen Delivery Method Room Air Weight: 76.7 kg Body Mass Index (BMI) 30.2 Finger Stick Blood Glucose 93 Intake and Output for Last 24 Hours 07/06/20 07/07/20 07/08/20 23:59 23:59 23:59 Intake Total 36.25 / 43.75 270.99 / 270.99 Output Total 650 / 650 500 / 500 Balance -613.75 / -606.25 -229.01 / -229.01 General: Alert, Oriented x3, Cooperative, - - Obese. Mild to moderate conversational dyspnea. HEENT: Atraumatic, PERRLA, EOMI, Normocephalic, - - Lateral icterus or injection noted. No epistaxis. Oral: Moist Mucosa Neck: Supple, No JVD, No Nodes, Trachea Midline Lungs: Diminished, Rhonchi - Improved with coughing Cardiovascular: Normal S1, Normal S2 - Click noted, No murmurs, No rub noted, No Gallop, Tachycardic Abdomen: Bowel Sounds Present, Soft, Non Tender, Non-Distended, Obese Extremities: No clubbing, No cyanosis, Edema - Trace to 1+ lower extremity Skin: No rashes, No breakdown Musculoskeletal: No Tenderness to Palpation of Joints or Extremities Lymphatic: No Cervical, Supraclavicular, or Inguinal Adenopathy Neurological: Cranial nerves II-XII grossly intact, Neuro grossly intact Psych/Mental Status: Alert and oriented to time, place, person, mood and affect Microbiology Past 72 Hours 07/07/20 16:15 Mucosa - Nasopharyngeal Respiratory Panel (PCR) - Final 07/07/20 10:40 Mucosa - Nose SARS-CoV-2 Antigen (Rapid) - Final Laboratory Results 07/07/20 00:05: Troponin I < 0.015 07/07/20 10:37: Total Bilirubin 0.40, Direct Bilirubin 0.14, AST 21, ALT 22, Alkaline Phosphatase 130 H, Total Protein 8.0, Albumin 3.7, Globulin 4.3 H 07/07/20 10:37: Magnesium 1.9 07/07/20 16:15: COVID-19 (DELFINA) Not Detected 07/07/20 20:31: Troponin I < 0.015 07/08/20 03:14: Sodium 137, Potassium 3.9, Chloride 105, Carbon Dioxide 27.0, Anion Gap 5, BUN 16, Creatinine 1.06 H, Estim Creat Clear Calc 37.93, Est GFR (MDRD) Af Amer 65, Est GFR (MDRD) Non-Af 54 L, BUN/Creatinine Ratio 15.1, Glucose 131 H, Calcium 9.5, Total Bilirubin 0.50, AST 22, ALT 20, Alkaline Phosphatase 110, Total Protein 6.9, Albumin 3.0 L, Globulin 3.9, Albumin/Globulin Ratio 0.8 L 07/08/20 03:14: PT > 120.0 H, INR > 19.5 H* 07/08/20 03:14: WBC 7.6, RBC 5.07, Hgb 11.9 L, Hct 41.1, MCV 81.1, MCH 23.5 L, MCHC 29.0 L, RDW Std Deviation 52.8 H, RDW Coeff of Loki 17.9 H, Plt Count 354, MPV 9.8, Immature Gran % (Auto) 0.500, Neut % (Auto) 93.1 H, Lymph % (Auto) 5.4 L, [place] % (Auto) 0.7, Eos % (Auto) 0.0, Baso % (Auto) 0.3, Absolute Neuts (auto) 7.1, Absolute Lymphs (auto) 0.41 L, Nucleated RBC % 0, Differential Comment SCANNED, Platelet Estimate ADEQUATE 07/08/20 03:14: Troponin I < 0.015 07/08/20 08:35: PT 46.0 H, INR 4.9 H* Current Medications Acetaminophen (Acetaminophen 325 Mg Tablet) 650 mg PO Q6H PRN PRN PRN Reason: Pain Score 1-10/Temp > 100.7 F Last Admin: 07/07/20 22:51 Dose: 650 mg Documented by: Al Hydroxide/Mg Hydroxide (Mag Hydrox/Al Hydrox/Simeth 30 Ml Udc) 30 ml PO Q6H PRN PRN PRN Reason: Gastric Burning Albuterol/Ipratropium (Ipratropium/Albuterol Sulfate 3 Ml Ampul.Neb) 3 ml INHALATION Q6HWA.RT [facility] Last Admin: 07/08/20 06:45 Dose: 3 ml Documented by: Amiodarone HCl (Amiodarone 200 Mg Tablet) 200 mg PO TID [facility] Stop: 07/12/20 22:01 Amiodarone HCl (Amiodarone 200 Mg Tablet) 200 mg PO BID [facility] Stop: 07/26/20 22:01 Amiodarone HCl (Amiodarone 200 Mg Tablet) 200 mg PO DAILY [facility] Aspirin (Aspirin 81 Mg Tab.Chew) 162 mg PO DAILY [facility] Last Admin: 07/08/20 10:33 Dose: 162 mg Documented by: Azelastine HCl (Azelastine Hcl Nasal.Sry) 1 spray NASAL BID [facility] Last Admin: 07/08/20 12:49 Dose: 1 spray Documented by: Bupropion HCl (Bupropion (Xl) 150 Mg Tablet.Xl) 150 mg PO DAILY [facility] Ezetimibe (Ezetimibe 10 Mg Tablet) 10 mg PO DAILY [facility] Ergocalciferol (Ergocalciferol 50,000 Unit Capsule) 50,000 unit PO Fr@1000 [facility] Ferrous Sulfate (Ferrous Sulfate 325 Mg Tablet) 325 mg PO 1700 [facility] Furosemide (Furosemide 40 Mg/4 Ml Vial) 40 mg IV BID@1000,1800 [facility] Last Admin: 07/08/20 12:49 Dose: 40 mg Documented by: Diltiazem HCl 125 mg/ Dextrose 125 mls @ 5 mls/hr IV .Q25H [facility]; Protocol Last Titration: 07/08/20 11:42 Dose: 0 mg/hr, 0 mls/hr Documented by: Piperacillin Sod/Tazobactam (Sod 3.375 gm/ Sodium Chloride) 50 mls @ 12.5 mls/hr IV Q8 [facility] Last Infusion: 07/08/20 10:11 Dose: Infused Documented by: Sodium Chloride () 500 mls @ 15 mls/hr IV .[id number] [facility] Last Infusion: 07/08/20 13:05 Dose: 0 mls/hr Documented by: Lorazepam (Lorazepam 0.5 Mg Tablet) 0.5 mg PO BID PRN PRN PRN Reason: ANXIETY Methylprednisolone (Methylprednisolone 40 Mg/Ml Vial) 40 mg IV Q8 [facility] Last Admin: 07/08/20 06:12 Dose: 40 mg Documented by: Metoprolol Succinate (Metoprolol(Xl)Succ 50 Mg Tablet) 50 mg PO DAILY [facility] Last Admin: 07/08/20 10:33 Dose: 50 mg Documented by: Montelukast Sodium (Montelukast 10 Mg Tablet) 10 mg PO QHS [facility] Last Admin: 07/07/20 21:20 Dose: 10 mg Documented by: Nutritional Formula (Lactose Free) (Ensure Enlive 120 Ml Liquid) 120 ml PO 4X/DAY [facility] Last Admin: 07/08/20 09:19 Dose: Not Given Documented by: Ondansetron HCl (Ondansetron 4 Mg/2 Ml Vial) 4 mg IV Q8H PRN PRN PRN Reason: NAUSEA/VOMITING Pantoprazole Sodium (Pantoprazole Sodium 40 Mg Tablet) 40 mg PO BID [facility] Last Admin: 07/07/20 21:17 Dose: Not Given Documented by: Paroxetine HCl (Paroxetine 20 Mg Tablet) 20 mg PO DAILY [facility] Potassium Chloride (Potassium Chloride 20 Meq Tablet) [facility] Last Admin: 07/08/20 10:34 Dose: 20 meq Documented by: Pravastatin Sodium (Pravastatin 80 Mg Tablet) 80 mg PO QHS [facility] Last Admin: 07/07/20 21:20 Dose: 80 mg Documented by: Sodium Chloride (0.9% Saline Lock 10 Ml Syringe) 10 - 40 ml IV UD PRN PRN Reason: SALINE FLUSH Last Admin: 07/08/20 12:32 Dose: 20 ml Documented by: Assessment/Plan All Active Problems (Last Reviewed 07/07/20 @ 09:16 by Criss Govea) Atrial fibrillation with rapid ventricular response (Acute) Bronchiectasis with acute exacerbation (Acute) Respiratory insufficiency (Acute) Cough (Acute) Allergic rhinitis (Acute) Chronic anticoagulation (Acute) Hemoptysis (Acute) Syncope and collapse (Resolved) RECOMMENDATIONS: 1. Cardioversion per cardiology. Conscious sedation provided as an independent procedure 2. Continue Zosyn 3. Okay to initiate amiodarone from a pulmonary perspective if necessary 4. Await response to return to spontaneous rhythm 5. Okay to diuresis from my perspective IMPRESSIONS: 1. Acute hypoxic respiratory insufficiency/bronchiectasis Clinical suspicion for inability to compensate for A. fib with RVR in the setting of advanced lung disease. Patient was taken off of Cardizem drip and had cardioversion. Conscious sedation was provided as an independent procedure. Patient is not reporting any significant change in her cough, but has grown Pseudomonas with bronchiectasis in the past. Reasonable to continue with this for now. Future antibiotic selection will be complicated given patient's baseline reported allergy. 2. A. fib with RVR/history of mechanical heart valves/elevated INR/acute on chronic diastolic CHF Patient with cardioversion today. Await response to return to normal sinus rhythm. Okay to diurese from my perspective. Did discuss with Dr. Johnson and patient can be placed on amiodarone if deemed necessary by cardiology. Despite risk for possible interstitial lung disease, ability to compensate for A. fib with RVR will be marginal. This can be followed up on as an outpatient by Dr. Johnson for complications. 3. Dementia/CKD stage III/advanced age/obesity Complicates care, management, recovery and prognosis. Okay to continue with baseline medications from my perspective. Inpatient E&M: 52107 Init Hosp L3
[2020-07-08] MEDS: buPROPion (XL) 150 MG TABLET.XL PO (14:31)
[2020-07-08] MEDS: Ezetimibe 10 MG Tablet PO (14:31)
[2020-07-08] MEDS: Pantoprazole Sodium 40 MG Tablet PO ×2 (14:32→21:29)
[2020-07-08] MEDS: Paroxetine 20 MG Tablet PO (14:32)
--- NOTE | 2020-07-08 14:47 | NURSING ---
AM medications late d/t NPO for cardioversion and cardioversion recovery.
[2020-07-08] MEDS: Amiodarone 200 MG Tablet PO ×2 (15:07→21:31)
[2020-07-08] MEDS: Ferrous Sulfate 325 MG Tablet PO (17:09)
[2020-07-08] MEDS: Pravastatin 80 MG Tablet PO (21:29)
[2020-07-08] MEDS: Montelukast 10 MG Tablet PO (21:30)
[2020-07-08] MEDS: LORazepam 0.5 MG Tablet PO (23:18)
[2020-07-09] VITALS (12 sets, daily range): BP systolic 126–133; BP diastolic 55–66; PULSE 85–96; RESP 12–18; TEMP 36.7–36.8; O2SAT 88–98
[2020-07-09] MEDS: Amiodarone 200 MG Tablet PO ×2 (05:09→13:10)
[2020-07-09 05:47] LABS: Absolute Lymphocyte Count 0.41 X10^3/uL (0.83-4.51); Absolute Neutrophil Count 16.8 X10^3/uL (2.0-7.7); Basophil# 0.02 X10^3/uL; Basophil% 0.1 % (0-1); Hematocrit 39.1 % (37-47); Hemoglobin 11.4 g/dL (12.0-15.0); Lymphocyte # 0.41 X10^3/ul (4.0); Lymphocyte % 2.3 % (19-41); Mean Corp Hgb Conc 29.2 g/dL (32-36); Mean Corpuscular Hgb 23.4 pg (27.0-32.0); Mean Corpuscular Volume 80.1 fL (81-99); Mean Platelet Vol. 9.6 fl (6.2-12.0); Monocyte# 0.33 X10^3/uL; Monocyte% 1.9 % (0-10); NRBC Flagged by Analyzer 0 % (0-5); Neutrophil # 16.79 X10^3/uL (2.7-7.7); Neutrophil % 95.3 % (47-70); POSITIVE DIFFERENTIAL YES; Platelet Count 426 K/mm3 (150-450); RBC Distribution Width CV 17.6 % (11.6-14.6); Red Blood Count 4.88 M/mm3 (4.2-5.4); White Blood Count 17.6 K/mm3 (4.4-11.0)
[2020-07-09 05:49] LABS: Differential Indicated SCAN CRITERIA MET
[2020-07-09 06:09] LABS: Differential Comment SCANNED; Microcytosis RARE; Ovalocyte RARE
[2020-07-09 06:12] LABS: Anion Gap 6 (5-15); BUN 25 mg/dL (7-18); BUN/Creat Ratio 18.2 RATIO (10-20); Calcium,Total 9.2 mg/dL (8.5-10.1); Chloride 104 mmol/L (98-107); Creatinine, Serum 1.37 mg/dL (0.55-1.02); EST Glomerular Filtration Rate 40 mL/min (>60); Est Glom Filt Rate - Afr Amer 48 mL/min (>60); Estimated Creatinine Clearance 29.35 ml/min; Glucose 126 mg/dL (74-106); Potassium 3.7 mmol/L (3.5-5.1); Sodium Level 140 mmol/L (136-145)
[2020-07-09 06:27] LABS: Prothrombin Time (Protime)PT. 41.8 SECONDS (11.7-14.9)
[2020-07-09 06:41] LABS: International Normalized Ratio 4.4
[2020-07-09] MEDS: Ipratropium/Albuterol Sulfate 3 ML AMPUL.NEB INHALATION ×2 (07:07→13:36)
--- NOTE | 2020-07-09 09:34 | PCM.PN.CARD ---
Subjectve: The patient is awake. She denies any acute symptoms of palpitations or rapid heart rates her ongoing chest discomfort. She has chronic shortness of breath/dyspnea. Objective: Vital Signs Temp Pulse Resp BP Pulse Ox 98.1 F 88 12 127/66 H 94 07/09/20 09:17 07/09/20 09:17 07/09/20 09:17 07/09/20 09:17 07/09/20 09:17 Oxygen Flow Rate (L/min) 2 Oxygen Delivery Method Room Air Weight: 170 lb 6.677 oz Body Mass Index (BMI) 30.2 Finger Stick Blood Glucose 93 Intake and Output for Last 24 Hours 07/07/20 07/08/20 07/09/20 23:59 23:59 23:59 Intake Total 36.25 / 43.75 801.00 / 801.00 650 / 650 Output Total 650 / 650 800 / 800 910 / 910 Balance -613.75 / -606.25 1.00 / 1.00 -260 / -260 General: Awake, Cooperative, No Acute Distress HEENT: Atraumatic, Normocephalic, PERRL, EOMI, Sclera Non Icteric Neck: Supple, Good ROM, No JVD Lungs: Rhonchi Cardiovascular: Regular Rhythm, Normal S1, Normal S2 Abdomen: Bowel Sounds Present, Soft Extremities: No edema Neurological: No Focal Motor or Sensory Deficit Psych/Mental Status: Normal Affect 07/09/20 05:37: PT 41.8 H, INR 4.4 H* 07/09/20 05:37: WBC 17.6 H, RBC 4.88, Hgb 11.4 L, Hct 39.1, MCV 80.1 L, MCH 23.4 L, MCHC 29.2 L, Plt Count 426, MPV 9.6, Immature Gran % (Auto) 0.400, Neut % (Auto) 95.3 H, Lymph % (Auto) 2.3 L, [place] % (Auto) 1.9, Eos % (Auto) 0.0, Baso % (Auto) 0.1, Absolute Neuts (auto) 16.8 H, Nucleated RBC % 0 07/09/20 05:37: Sodium 140, Potassium 3.7, Chloride 104, Carbon Dioxide 30.0, Anion Gap 6, BUN 25 H, Creatinine 1.37 H, Est GFR (MDRD) Af Amer 48 L, Est GFR (MDRD) Non-Af 40 L, BUN/Creatinine Ratio 18.2, Glucose 126 H, Calcium 9.2 Rhythm: Sinus rhythm Medical Necessity - Tobacco Use Smoking Status: Never smoker Tobacco Use: Non-smoker Assessment/Plan 1. Atrial fibrillation/flutter The patient has remained in underlying atrial fibrillation/flutter. This may be secondary to a combination of her age, hypertension, cardiovascular disease, pulmonary disease, etc. She has continued medical therapy with a combination of rate limiting therapy, antiarrhythmic therapy, and her anticoagulant therapy. She did undergo synchronized biphasic DC cardioversion yesterday. She regained sinus rhythm. From a cardiac standpoint she will continue medical therapy and follow-up. 2. Status post aortic valve: Mechanical aortic valve He does have a mechanical aortic valve prosthesis is noted. It was recently evaluated with transthoracic echocardiogram. It appeared to be stable. She will need to continue AHA antibiotic prophylaxis and anticoagulant therapy. 3. Thoracic aortic aneurysm Thoracic aorta has been followed noninvasively by studies such as transthoracic echocardiogram and chest CT scan. 4. CAD He has a history of CAD which was thought to be nonangiographically significant. Her initial troponin I level was negative. Her ECG did not demonstrate any acute electrocardiographic changes. She will need to continue risk factor modification medical therapy as deemed appropriate. 5. Hyperlipidemia Again she will continue risk factor modification medical therapy as deemed appropriate. 6. Hypertension Her blood pressure will be followed. She will continue medical management. 7. Bronchiectasis She will continue evaluation care per internal medicine and pulmonology. Comment: Overall, from a cardiovascular standpoint, the patient will continue medical management. There are no plans for additional cardiac diagnostic studies or therapeutic intervention at this time barring a change in the patient's clinical course. She will need continued outpatient cardiovascular follow-up to monitor her ongoing cardiovascular concerns. She will need continued outpatient follow-up to monitor her laboratory studies including her INR. This note was generated using a voice recognition system and there may be incorrect words, spelling or punctuation that were not noted when reviewing the office note prior to saving.
[2020-07-09] MEDS: Azelastine HCl NASAL.SRY 1 SPRAY NASAL (10:35)
[2020-07-09] MEDS: Aspirin 81 MG TAB.CHEW 162 MG PO (10:36)
[2020-07-09] MEDS: Furosemide 40 MG/4 ML Vial IV (10:37)
[2020-07-09] MEDS: buPROPion (XL) 150 MG TABLET.XL PO (10:38)
[2020-07-09] MEDS: Paroxetine 20 MG Tablet PO (10:38)
[2020-07-09] MEDS: Ezetimibe 10 MG Tablet PO (10:38)
[2020-07-09] MEDS: Pantoprazole Sodium 40 MG Tablet PO (10:38)
[2020-07-09] MEDS: Metoprolol(XL)Succ 50 MG Tablet PO (10:39)
--- NOTE | 2020-07-09 12:17 | PCM.PN.PUL ---
Patient Problems: Active and Suspected Problems (Last Updated 07/08/20 @ 16:42 by Tia Carrion) Atrial fibrillation with rapid ventricular response (Acute) Bronchiectasis with acute exacerbation (Acute) Respiratory insufficiency (Acute) Allergic rhinitis (Acute) Chronic anticoagulation (Acute) Subjective: Patient did well overnight. No acute issues were reported. Patient states she feels that she is making it back to her baseline at this time. Patient denies any recollection of the cardioversion. Patient continues to have a cough, but does not believe this is changed from baseline. - Physical Exam Vitals/I&O's: Vital Signs Temp Pulse Resp BP Pulse Ox 36.7 C 94 12 127/66 H 94 07/09/20 09:17 07/09/20 10:39 07/09/20 09:17 07/09/20 09:17 07/09/20 09:17 Oxygen Flow Rate (L/min) 2 Oxygen Delivery Method Room Air Weight: 77.3 kg Body Mass Index (BMI) 30.2 Finger Stick Blood Glucose 93 Intake and Output for Last 24 Hours 07/07/20 07/08/20 07/09/20 23:59 23:59 23:59 Intake Total 36.25 / 43.75 801.00 / 801.00 700 / 700 Output Total 650 / 650 800 / 800 910 / 910 Balance -613.75 / -606.25 1.00 / 1.00 -210 / -210 General: Alert, Oriented x3, Cooperative, No apparent distress, - - No conversational dyspnea. No coughing during my evaluation. HEENT: Atraumatic, PERRLA, EOMI, Normocephalic, - - No scleral icterus or injection noted Oral: Moist Mucosa, No Gingival or Mucosal Lesions/ Ulcerations Neck: Supple, No JVD, No Nodes, Trachea Midline Lungs: No wheeze, No rales, Diminished, Rhonchi - Improved with cough Cardiovascular: Regular rate, Regular Rhythm, Normal S1, Normal S2 - Click noted, No murmurs, No rub noted, No Gallop Abdomen: Bowel Sounds Present, Soft, Non Tender, Non-Distended, Obese Extremities: No clubbing, No cyanosis, No edema Skin: No rashes, No breakdown Musculoskeletal: No Tenderness to Palpation of Joints or Extremities Lymphatic: No Cervical, Supraclavicular, or Inguinal Adenopathy Neurological: Cranial nerves II-XII grossly intact, Neuro grossly intact, Motor Exam 5/5 strength throughout Psych/Mental Status: Alert and oriented to time, place, person, mood and affect Microbiology Past 72 Hours 07/08/20 23:23 Sputum, Expectorated/Coughed Gram Stain - Final 07/07/20 16:15 Mucosa - Nasopharyngeal Respiratory Panel (PCR) - Final 07/07/20 10:40 Mucosa - Nose SARS-CoV-2 Antigen (Rapid) - Final Laboratory Results 07/09/20 05:37: PT 41.8 H, INR 4.4 H* 07/09/20 05:37: WBC 17.6 H, RBC 4.88, Hgb 11.4 L, Hct 39.1, MCV 80.1 L, MCH 23.4 L, MCHC 29.2 L, RDW Std Deviation 51.0 H, RDW Coeff of Loki 17.6 H, Plt Count 426, MPV 9.6, Immature Gran % (Auto) 0.400, Neut % (Auto) 95.3 H, Lymph % (Auto) 2.3 L, [place] % (Auto) 1.9, Eos % (Auto) 0.0, Baso % (Auto) 0.1, Absolute Neuts (auto) 16.8 H, Absolute Lymphs (auto) 0.41 L, Nucleated RBC % 0, Differential Comment SCANNED, Microcytosis RARE, Ovalocytes RARE 07/09/20 05:37: Sodium 140, Potassium 3.7, Chloride 104, Carbon Dioxide 30.0, Anion Gap 6, BUN 25 H, Creatinine 1.37 H, Estim Creat Clear Calc 29.35, Est GFR (MDRD) Af Amer 48 L, Est GFR (MDRD) Non-Af 40 L, BUN/Creatinine Ratio 18.2, Glucose 126 H, Calcium 9.2 Current Medications Acetaminophen (Acetaminophen 325 Mg Tablet) 650 mg PO Q6H PRN PRN PRN Reason: Pain Score 1-10/Temp > 100.7 F Last Admin: 07/07/20 22:51 Dose: 650 mg Documented by: Al Hydroxide/Mg Hydroxide (Mag Hydrox/Al Hydrox/Simeth 30 Ml Udc) 30 ml PO Q6H PRN PRN PRN Reason: Gastric Burning Albuterol/Ipratropium (Ipratropium/Albuterol Sulfate 3 Ml Ampul.Neb) 3 ml INHALATION Q6HWA.RT [facility] Last Admin: 07/09/20 07:07 Dose: 3 ml Documented by: Amiodarone HCl (Amiodarone 200 Mg Tablet) 200 mg PO TID [facility] Stop: 07/12/20 22:01 Last Admin: 07/09/20 05:09 Dose: 200 mg Documented by: Amiodarone HCl (Amiodarone 200 Mg Tablet) 200 mg PO BID [facility] Stop: 07/26/20 22:01 Amiodarone HCl (Amiodarone 200 Mg Tablet) 200 mg PO DAILY [facility] Aspirin (Aspirin 81 Mg Tab.Chew) 162 mg PO DAILY [facility] Last Admin: 07/09/20 10:36 Dose: 162 mg Documented by: Azelastine HCl (Azelastine Hcl Nasal.Sry) 1 spray NASAL BID [facility] Last Admin: 07/09/20 10:35 Dose: 1 spray Documented by: Bupropion HCl (Bupropion (Xl) 150 Mg Tablet.Xl) 150 mg PO DAILY [facility] Last Admin: 07/09/20 10:38 Dose: 150 mg Documented by: Ezetimibe (Ezetimibe 10 Mg Tablet) 10 mg PO DAILY [facility] Last Admin: 07/09/20 10:38 Dose: 10 mg Documented by: Ergocalciferol (Ergocalciferol 50,000 Unit Capsule) 50,000 unit PO Fr@1000 [facility] Last Admin: 07/09/20 10:38 Dose: 50,000 unit Documented by: Ferrous Sulfate (Ferrous Sulfate 325 Mg Tablet) 325 mg PO 1700 [facility] Last Admin: 07/08/20 17:09 Dose: 325 mg Documented by: Furosemide (Furosemide 40 Mg Tablet) 40 mg PO BID@1000,1800 [facility] Piperacillin Sod/Tazobactam (Sod 3.375 gm/ Sodium Chloride) 50 mls @ 12.5 mls/hr IV Q8 [facility] Last Infusion: 07/09/20 09:30 Dose: Infused Documented by: Sodium Chloride () 500 mls @ 15 mls/hr IV .[id number] [facility] Last Infusion: 07/08/20 13:05 Dose: 0 mls/hr Documented by: Lorazepam (Lorazepam 0.5 Mg Tablet) 0.5 mg PO BID PRN PRN PRN Reason: ANXIETY Last Admin: 07/08/20 23:18 Dose: 0.5 mg Documented by: Methylprednisolone (Methylprednisolone 40 Mg/Ml Vial) 40 mg IV Q8 [facility] Last Admin: 07/09/20 05:10 Dose: Not Given Documented by: Metoprolol Succinate (Metoprolol(Xl)Succ 50 Mg Tablet) 50 mg PO DAILY [facility] Last Admin: 07/09/20 10:39 Dose: 50 mg Documented by: Montelukast Sodium (Montelukast 10 Mg Tablet) 10 mg PO QHS [facility] Last Admin: 07/08/20 21:30 Dose: 10 mg Documented by: Nutritional Formula (Lactose Free) (Ensure Enlive 120 Ml Liquid) 120 ml PO 4X/DAY [facility] Last Admin: 07/09/20 10:40 Dose: Not Given Documented by: Ondansetron HCl (Ondansetron 4 Mg/2 Ml Vial) 4 mg IV Q8H PRN PRN PRN Reason: NAUSEA/VOMITING Pantoprazole Sodium (Pantoprazole Sodium 40 Mg Tablet) 40 mg PO BID [facility] Last Admin: 07/09/20 10:38 Dose: 40 mg Documented by: Paroxetine HCl (Paroxetine 20 Mg Tablet) 20 mg PO DAILY [facility] Last Admin: 07/09/20 10:38 Dose: 20 mg Documented by: Potassium Chloride (Potassium Chloride 20 Meq Tablet) 20 meq PO DAILYCM [facility] Last Admin: 07/09/20 10:36 Dose: 20 meq Documented by: Pravastatin Sodium (Pravastatin 80 Mg Tablet) 80 mg PO QHS [facility] Last Admin: 07/08/20 21:29 Dose: 80 mg Documented by: Sodium Chloride (0.9% Saline Lock 10 Ml Syringe) 10 - 40 ml IV UD PRN PRN Reason: SALINE FLUSH Last Admin: 07/08/20 17:10 Dose: 10 ml Documented by: Medical Necessity - Tobacco Use Smoking Status: Never smoker Tobacco Use: Non-smoker Assessment/Plan All Active Problems (Last Updated 07/08/20 @ 16:42 by Tia Carrion) Atrial fibrillation with rapid ventricular response (Acute) Bronchiectasis with acute exacerbation (Acute) Respiratory insufficiency (Acute) Cough (Acute) Allergic rhinitis (Acute) Chronic anticoagulation (Acute) Hemoptysis (Acute) Syncope and collapse (Resolved) RECOMMENDATIONS: 1. Okay to discontinue Zosyn/antibiotics and steroids 2. Continue aggressive pulmonary toileting 3. Okay to initiate amiodarone from a pulmonary perspective if necessary 4. Diuresis per cardiology 5. Okay to diuresis from my perspective IMPRESSIONS: 1. Acute hypoxic respiratory insufficiency/bronchiectasis Clinical suspicion for inability to compensate for A. fib with RVR in the setting of advanced lung disease. Patient was taken off of Cardizem drip and had cardioversion. Patient is not reporting any worsening of baseline bronchiectasis symptoms and resolution of symptoms following cardioversion. Exacerbation of bronchiectasis is likely not the etiology of decompensation, but in my opinion, it is more about the inability to compensate for the RVR on presentation. Patient can likely be taken off of steroids and antibiotics and follow-up as previously prescribed/recommended. Dr. Johnson is aware of the potential discharge without antibiotics or steroids and agrees with the plan. 2. A. fib with RVR/history of mechanical heart valves/elevated INR/acute on chronic diastolic CHF Patient with cardioversion today. Await response to return to normal sinus rhythm. Okay to diurese from my perspective. Did discuss with Dr. Johnson and patient can be placed on amiodarone if deemed necessary by cardiology. Despite risk for possible interstitial lung disease, ability to compensate for A. fib with RVR will be marginal. This can be followed up on as an outpatient by Dr. Johnson for complications. 3. Dementia/CKD stage III/advanced age/obesity Complicates care, management, recovery and prognosis. Okay to continue with baseline medications from my perspective. Inpatient E&M: 44515 Subs Hosp L2
[2020-07-09] MEDS: Furosemide 40 MG Tablet PO (13:12)
--- NOTE | 2020-07-09 14:39 | PCM.DC ---
- Discharge Diagnoses Current Active Problems: Current Active and Chronic Problems (Last Updated 07/08/20 @ 16:42 by Tia Carrion) Atrial fibrillation with rapid ventricular response (Acute) Bronchiectasis with acute exacerbation (Acute) Respiratory insufficiency (Acute) Aneurysm, thoracic aortic (Chronic) Chronic diastolic heart failure (Chronic) HERLINDA (obstructive sleep apnea) (Chronic) Pseudomonas respiratory infection (Chronic) History of recurrent pseudomonal infections in the past Bronchiectasis (Chronic) History of mechanical aortic valve replacement (Chronic ~10/07/13) [id number], 2003, Redo AVR 10/10 (#21 On-X mechanical valve) Essential hypertension (Chronic) Allergic rhinitis (Acute) GERD (gastroesophageal reflux disease) (Chronic) Anxiety (Chronic) Chronic anticoagulation (Acute) 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, thoracic aortic (Chronic) Hyperlipidemia (Chronic) Obesity (Chronic) Asthma (Chronic) Chronic sinusitis (Chronic) H/O Pseudomonas, MRSA You will use the following diet at home:: Cardiac Your food should be the consistency of: Regular Your liquids should be the consistency of: Regular/Thin Discharge Activity: Return to Normal Activity Call your doctor if you observe: Fever of 101 or Higher, Shortness of breath, Dizziness, Fainting spells, Swelling in the ankles, Chest pain, Increased palpitations (irregular heartbeat) Instructions: Bronchiectasis, ED AFIB Additional Instructions: Obtain an INR on sunday by your PCP Allergies/Adverse Reactions: Allergies donepezil Allergy (Severe, Verified 07/07/20 09:17) shortness of breath Sulfa (Sulfonamide Antibiotics) Allergy (Verified 07/07/20 09:17) Swelling celecoxib [From Celebrex] Adverse Reaction (Severe, Verified 07/07/20 09:17) Swelling dextromethorphan [From Delsym] Adverse Reaction (Severe, Verified 07/07/20 09:17) hallucination adhesive Adverse Reaction (Verified 07/07/20 09:17) blisters BLISTERS codeine Adverse Reaction (Verified 07/07/20 09:17) Itching levofloxacin [From Levaquin] Adverse Reaction (Verified 07/07/20 09:17) pain in legs and swelling PAIN IN LEG AND SWELLING lisinopril Adverse Reaction (Verified 07/07/20 09:17) cough oxycodone [Oxycodone] Adverse Reaction (Verified 07/07/20 09:17) Itching oxycodone HCl [From Percocet] Adverse Reaction (Verified 07/07/20 09:17) Itching AND MAKES HEAD FEEL FUNNY Penicillins Adverse Reaction (Verified 07/07/20 09:17) heart palpitations HEART PALPITATIONS prochlorperazine edisylate [From Compazine] Adverse Reaction (Verified 07/07/20 09:17) Low blood pressure prochlorperazine maleate [From Compazine] Adverse Reaction (Verified 07/07/20 09:17) Low blood pressure tramadol HCl [From Ultra] Adverse Reaction (Verified 07/07/20 09:17) Itching Medications to take at Discharge Pantoprazole Sodium [Protonix] 40 mg PO BID 01/14/15 buPROPion XL [Wellbutrin Xl] 150 mg PO DAILY 11/15/15 Montelukast [Singulair] 10 mg PO QHS 05/03/17 Potassium Chloride [K-Dur] 20 meq PO DAILY 05/03/17 aspirin 81 mg chewable tablet 162 mg PO DAILY tab 09/04/17 lorazepam 0.5 mg tablet 0.5 mg PO BID PRN 09/04/17 Furosemide [Lasix] 40 mg PO DAILY #0 12/06/17 albuterol sulfate 2.5 mg INHALATION Q4H PRN 12/20/17 cholecalciferol (vitamin D3) 1,250 mcg (50,000 unit) capsule 50,000 unit PO FR 06/16/19 ezetimibe 10 mg tablet 10 mg PO DAILY #90 tab 08/07/19 pravastatin 80 mg tablet 80 mg PO QHS #90 tab 08/13/19 albuterol sulfate 90 mcg/actuation aerosol inhaler 2 puff INHALATION Q4H PRN #18 g 12/09/19 azelastine 137 mcg (0.1 %) nasal spray aerosol 1 spray INTRANASAL BID #30 ml 01/19/20 budesonide-formoterol HFA 160 mcg-4.5 mcg/actuation aerosol inhaler 2 inh INHALATION BID #10.2 g 01/26/20 ferrous sulfate 325 mg (65 mg iron) tablet 325 mg PO DAILY 05/10/20 tiotropium bromide 2.5 mcg/actuation mist for inhalation 2 puff INHALATION QDAY #4 g 05/10/20 metoprolol succinate 50 mg tablet,extended release 24 hr 50 mg PO DAILY #90 tab 07/06/20 Acetaminophen [Tylenol Arthritis] 650 mg PO Q6H PRN 07/07/20 Paroxetine HCl 20 mg PO DAILY 07/07/20 Amiodarone HCl [Cordarone] 200 mg PO BID #28 tab 07/09/20 Amiodarone HCl [Cordarone] 200 mg PO DAILY #30 tab 07/09/20 Amiodarone HCl [Cordarone] 200 mg PO TID #10 tab 07/09/20 Warfarin [Coumadin] 3 mg PO TUTHSA #0 07/09/20 Warfarin [Coumadin] 5 mg PO SUMOWEFR #0 07/09/20 The following prescriptions were given: Amiodarone HCl [Cordarone] 200 mg PO TID #10 tab Transmission Status: Pending to [facility] Amiodarone HCl [Cordarone] 200 mg PO BID #28 tab Transmission Status: Pending to [facility] Amiodarone HCl [Cordarone] 200 mg PO DAILY #30 tab Transmission Status: Pending to [facility] Primary Care Physician: Harley Cornejo MD [Primary Care Provider] - Please follow up with your Primary Care Physician in: 3-5 days Test Results: Test results from this visit will be discussed in further detail at your follow-up appointment, if applicable. Please Follow Up With: Cardiology When: 2-4 weeks Please Follow Up With: Jeremy Johnson DO When: As previously scheduled
--- NOTE | 2020-07-09 14:57 | CASEMGMT ---
Addendum entered by Vi Bobby 07/09/20 15:24: [place] [facility] [place] and call to Bahvya at [facility] to notify of referral/discharge, voices understanding. Christopher GONZALEZ CM Original Note: Therapy is recommending OP therapy for pt at this time. Pt states has gone to [facility] in the past and would prefer to go there again. Order obtained for OP PT/OT to [facility] at this time and faxed to [facility], original to pt at discharge. Pt to be tested for home oxygen at this time. Pt states no preference for DME company. Christopher GONZALEZ CM
--- NOTE | 2020-07-09 20:09 | PCM.DC.SUM ---
Discharge Date and Diagnosis - Problem List Patient Problems: Active and Suspected Problems (Last Updated 07/08/20 @ 16:42 by Tia Carrion) Atrial fibrillation with rapid ventricular response (Acute) Bronchiectasis with acute exacerbation (Acute) Respiratory insufficiency (Acute) Allergic rhinitis (Acute) Chronic anticoagulation (Acute) Date of Admission: 07/07/20 Date of Discharge: 07/09/20 - Primary Discharge Diagnosis Acute Problems: Active Problems (Last Updated 07/08/20 @ 16:42 by Tia Carrion) Atrial fibrillation with rapid ventricular response (Acute) Bronchiectasis with acute exacerbation (Acute) Respiratory insufficiency (Acute) Allergic rhinitis (Acute) Chronic anticoagulation (Acute) - Secondary Discharge Diagnosis Chronic Problems: Chronic Problems (Last Updated 07/08/20 @ 16:42 by Tia Carrion) Aneurysm, thoracic aortic (Chronic) Chronic diastolic heart failure (Chronic) HERLINDA (obstructive sleep apnea) (Chronic) Pseudomonas respiratory infection (Chronic) History of recurrent pseudomonal infections in the past Bronchiectasis (Chronic) History of mechanical aortic valve replacement (Chronic ~10/07/13) RWT-[id number]-Owyxxi, 2003, Redo AVR 10/10 (#21 On-X mechanical valve) Essential hypertension (Chronic) GERD (gastroesophageal reflux disease) (Chronic) Hypoxemia (Chronic) Anxiety (Chronic) 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 Stable elevation of the right hemidiaphragm. No acute abnormality is seen. Electronically Signed: Jesse Abernathy, at 11:17 EST , Service support , Cardioversion Cardioversion: Date: 07-08-2020 Procedure: Synchronized Biphasic DC Cardioversion Indications: Atrial fibrillation/flutter Consent: Per the Patient Anesthesia: per Dr. Hall of pulmonology and critical care medicine with propofol 100 mg IV push total Procedure: Synchronized Biphasic DC Cardioversion: 200 J x 1: Result: Sinus rhythm; PACs Complications: no apparent complications Consults: Cardiology Pulmonology Operations: None Procedures: Cardioversion Summary of Care Provided: PEr HPI: The patient is a 74 year old F with past medical history of mechanical aortic valve, hypertension, hyperlipidemia, dilated thoracic aortic root, chronic diastolic congestive heart failure, history of bronchiectasis who comes in with shortness of breath ongoing for about 2 weeks. Her shortness of breath is worse with activity and improves with rest. She has associated palpitations in presyncope feeling. Her cough is productive of brownish yellow-greenish sputum. Denies any fever or chills or sick contact. He was seen earlier in the heritage consultant office to have an SVT with rate 149. Patient was sent to the emergency department. She was found to have a narrow complex tachycardia, with heart rate in the 140s. She was given adenosine which did not seem to have helped much. She was found to have underlining rapid A. fib/a flutter. She received Cardizem with improvement in her heart rate. She however, became persistently dyspneic and tachycardic. Her temperature was 96.9F, heart rate 144, blood pressure 108/73, respiratory 23, SPO2 is 98% on room air. WBC count is 10.5, hemoglobin 13.2, platelet count 448, INR 5.4, sodium 139, potassium 3.3, chloride 102, bicarbonate 30, BUN 20, creatinine 1.24, baseline creatinine is between 1.1 and 1.2. BNP of is 403.3. Rapid antigen for COVID-19 is negative. COVID-19 PCR is pending. Chest x-ray showed a large stable hiatal hernia, stable base of the right hemidiaphragm. No acute abnormality seen. Hospital Course: 1. A. fib with RVR/acute bronchiectasis exacerbation/acute on chronic diastolic SHP-30-vcmf-old female presented to the hospital with A. fib with RVR was found to also have diastolic CHF exacerbation as well as bronchiectasis exacerbation. She is requiring 2 L nasal cannula on admission. She had an elevated INR initially to 5.4 this came down to 4.9 and she was cardioverted by cardiology and pulmonology yesterday with return of sinus rhythm. Since then she has not required any oxygen at rest, though she did require some oxygen with ambulation and was discharged on oxygen. We discussed with her after her cardioversion if her sputum production was worse than normal and and she said not really therefore she did not need any antibiotics on discharge and her production metal sprayer was notified. Cardiology recommended discharging her on an amiodarone taper, and her other home medications were continued as necessary. I discussed with her the plan for discharge today, and she expressed understanding of the risk and benefits of going home and would like to go home. I discussed with her that she will need to follow-up with her PCP to have an outpatient INR secondary to her elevated INR and her hold her Coumadin until such time she was told to restart it by her primary care physician. She will need to follow-up with her production metal sprayer as well as cardiology as an outpatient. 2. Mechanical aortic valve, CKD 3, dementia, anxiety, depression, GERD all chronic medical conditions which complicate her care. Her home medications were continued where appropriate Patient Problems: Active and Suspected Problems (Last Updated 07/08/20 @ 16:42 by Tia Carrion) Atrial fibrillation with rapid ventricular response (Acute) Bronchiectasis with acute exacerbation (Acute) Respiratory insufficiency (Acute) Allergic rhinitis (Acute) Chronic anticoagulation (Acute) - Physical Exam Vitals/I&O's: Vital Signs Temp Pulse Resp BP Pulse Ox 98.0 F 86 12 126/55 H 96 07/09/20 15:52 07/09/20 15:52 07/09/20 15:52 07/09/20 15:52 07/09/20 15:52 Oxygen Flow Rate (L/min) [ 2 AMBULATION with Oxygen] Oxygen Flow Rate (L/min) 2 Oxygen Delivery Method Nasal Cannula Weight: 170 lb 6.677 oz Body Mass Index (BMI) 30.2 Finger Stick Blood Glucose 93 Intake and Output for Last 24 Hours 07/07/20 07/08/20 07/09/20 23:59 23:59 23:59 Intake Total 36.25 / 43.75 801.00 / 801.00 1180 / 1180 Output Total 650 / 650 800 / 800 1410 / 1410 Balance -613.75 / -606.25 1.00 / 1.00 -230 / -230 General: Alert, Oriented x3, Cooperative, No apparent distress HEENT: Atraumatic, PERRLA, EOMI, Normocephalic Oral: Moist Mucosa Neck: Supple, No JVD Lungs: Normal air movement, No rhonchi, No wheeze, No rales, Diminished Cardiovascular: Regular rate, Regular Rhythm, Normal S1, Normal S2, No murmurs Abdomen: Soft, Non Tender, Non-Distended, No Hepato-splenomegaly Extremities: No edema, Capillary Refill Less than 3 Seconds Skin: No rashes, No breakdown Neurological: Neuro grossly intact, Sensory exam intact to light touch and pain Psych/Mental Status: Normal Affect, Appropriate Microbiology Past 72 Hours 07/07/20 10:37 Blood Culture (Wb) #2 - Anticubital Right Blood Culture - Preliminary No growth in 48 hours. 07/07/20 10:40 Blood Culture (Wb) - Left Hand Blood Culture - Preliminary No growth in 48 hours. 07/08/20 23:23 Sputum, Expectorated/Coughed Gram Stain - Final 07/07/20 16:15 Mucosa - Nasopharyngeal Respiratory Panel (PCR) - Final 07/07/20 10:40 Mucosa - Nose SARS-CoV-2 Antigen (Rapid) - Final Laboratory Results 07/09/20 05:37: PT 41.8 H, INR 4.4 H* 07/09/20 05:37: WBC 17.6 H, RBC 4.88, Hgb 11.4 L, Hct 39.1, MCV 80.1 L, MCH 23.4 L, MCHC 29.2 L, RDW Std Deviation 51.0 H, RDW Coeff of Loki 17.6 H, Plt Count 426, MPV 9.6, Immature Gran % (Auto) 0.400, Neut % (Auto) 95.3 H, Lymph % (Auto) 2.3 L, [place] % (Auto) 1.9, Eos % (Auto) 0.0, Baso % (Auto) 0.1, Absolute Neuts (auto) 16.8 H, Absolute Lymphs (auto) 0.41 L, Nucleated RBC % 0, Differential Comment SCANNED, Microcytosis RARE, Ovalocytes RARE 07/09/20 05:37: Sodium 140, Potassium 3.7, Chloride 104, Carbon Dioxide 30.0, Anion Gap 6, BUN 25 H, Creatinine 1.37 H, Estim Creat Clear Calc 29.35, Est GFR (MDRD) Af Amer 48 L, Est GFR (MDRD) Non-Af 40 L, BUN/Creatinine Ratio 18.2, Glucose 126 H, Calcium 9.2 Discharge Activity: Return to Normal Activity Call your doctor if you observe: Fever of 101 or Higher, Shortness of breath, Dizziness, Fainting spells, Swelling in the ankles, Chest pain, Increased palpitations (irregular heartbeat) Home Medications: Medications to take at Discharge Pantoprazole Sodium [Protonix] 40 mg PO BID 01/14/15 buPROPion XL [Wellbutrin Xl] 150 mg PO DAILY 11/15/15 Montelukast [Singulair] 10 mg PO QHS 05/03/17 Potassium Chloride [K-Dur] 20 meq PO DAILY 05/03/17 aspirin 81 mg chewable tablet 162 mg PO DAILY tab 09/04/17 lorazepam 0.5 mg tablet 0.5 mg PO BID PRN 09/04/17 Furosemide [Lasix] 40 mg PO DAILY #0 12/06/17 albuterol sulfate 2.5 mg INHALATION Q4H PRN 12/20/17 cholecalciferol (vitamin D3) 1,250 mcg (50,000 unit) capsule 50,000 unit PO FR 06/16/19 ezetimibe 10 mg tablet 10 mg PO DAILY #90 tab 08/07/19 pravastatin 80 mg tablet 80 mg PO QHS #90 tab 08/13/19 albuterol sulfate 90 mcg/actuation aerosol inhaler 2 puff INHALATION Q4H PRN #18 g 12/09/19 azelastine 137 mcg (0.1 %) nasal spray aerosol 1 spray INTRANASAL BID #30 ml 01/19/20 budesonide-formoterol HFA 160 mcg-4.5 mcg/actuation aerosol inhaler 2 inh INHALATION BID #10.2 g 01/26/20 ferrous sulfate 325 mg (65 mg iron) tablet 325 mg PO DAILY 05/10/20 tiotropium bromide 2.5 mcg/actuation mist for inhalation 2 puff INHALATION QDAY #4 g 05/10/20 metoprolol succinate 50 mg tablet,extended release 24 hr 50 mg PO DAILY #90 tab 07/06/20 Acetaminophen [Tylenol Arthritis] 650 mg PO Q6H PRN 07/07/20 Paroxetine HCl 20 mg PO DAILY 07/07/20 Amiodarone HCl [Cordarone] 200 mg PO BID #28 tab 07/09/20 Amiodarone HCl [Cordarone] 200 mg PO DAILY #30 tab 07/09/20 Amiodarone HCl [Cordarone] 200 mg PO TID #10 tab 07/09/20 Warfarin [Coumadin] 3 mg PO TUTHSA #0 07/09/20 Warfarin [Coumadin] 5 mg PO SUMOWEFR #0 07/09/20 Following Prescriptions Were Given to Patient: Amiodarone HCl [Cordarone] 200 mg PO TID #10 tab Transmission Status: Received by [facility] Amiodarone HCl [Cordarone] 200 mg PO BID #28 tab Transmission Status: Received by [facility] Amiodarone HCl [Cordarone] 200 mg PO DAILY #30 tab Transmission Status: Received by [facility] Primary Care Physician: Harley Cornejo MD [Primary Care Provider] - Please follow up with your Primary Care Physician in: 3-5 days Please Follow Up With: Rory Mckay MD When: 2-4 weeks Please Follow Up With: Jeremy Johnson DO When: As previously scheduled Please Follow Up With: Harley Cornejo MD Patient Instructions: Bronchiectasis, ED AFIB Disposition: Home Minutes spent on discharge:: 35 Patient Condition:: Stable Medical Necessity - Tobacco Use Smoking Status: Never smoker Tobacco Use: Non-smoker Meaningful Use Info Meaningful Use Diagnoses (Choose all that apply): None applicable Inpatient E&M: [id number] [facility]
--- NOTE | 2020-07-12 14:21 | CASEMGMT ---
Addendum entered by Levi Cain 07/12/20 14:53: Patient returned call to hospital. She states she has reviewed her instructions, does not have questions re: medications which were picked up, but has not made f/u appointments. Reviewed f/u recommendations listed on discharge sheet. Patient does not need help with making appointments and will call Dr. Cornejo's office tomorrow. No further questions or concerns, and no care improvement suggestions. Michelle MOSES Original Note: CARLOS CM DISCHARGE PHONE CALL DC DATE: 07/09/2020 DC DISPOSITION: Home with oxygen DC DIAGNOSIS: Afib with ventricular response Attempted call to patient's home. No answer. Michelle JOYM
== END 2020-07-09 17:15 | disposition home or self-care (01) | DRG 308 ==
LOC: ED 15:07 → PCU 19:09
PROVIDERS: Internal Medicine Cardiovascular Disease; Physician Assistant; Admitting Provider Internal Medicine; Emergency Provider Emergency Medicine; PCP Family Medicine; Referring Provider Internal Medicine; Visit Provider Family Medicine
DX: I48.91 Unspecified atrial fibrillation (principal); I50.33 Acute on chronic diastolic (congestive) heart failure; J47.1 Bronchiectasis with (acute) exacerbation; I13.0 Hypertensive heart and chronic kidney disease with heart failure and stage 1 through stage 4 chronic kidney disease, or unspecified chronic kidney disease; G47.33 Obstructive sleep apnea (adult) (pediatric); E66.9 Obesity, unspecified; I48.92 Unspecified atrial flutter; R09.02 Hypoxemia; Z68.30 Body mass index [BMI] 30.0-30.9, adult; I25.10 Atherosclerotic heart disease of native coronary artery without angina pectoris; B96.5 Pseudomonas (aeruginosa) (mallei) (pseudomallei) as the cause of diseases classified elsewhere; N18.30 Chronic kidney disease, stage 3 unspecified; I47.1 Supraventricular tachycardia; E78.5 Hyperlipidemia, unspecified; K44.9 Diaphragmatic hernia without obstruction or gangrene; F03.90 Unspecified dementia, unspecified severity, without behavioral disturbance, psychotic disturbance, mood disturbance, and anxiety; E87.6 Hypokalemia; R79.1 Abnormal coagulation profile; J32.9 Chronic sinusitis, unspecified; I71.2 Thoracic aortic aneurysm, without rupture; I35.2 Nonrheumatic aortic (valve) stenosis with insufficiency; Z66 Do not resuscitate; Z79.01 Long term (current) use of anticoagulants; Z79.82 Long term (current) use of aspirin; Z51.5 Encounter for palliative care; Z82.49 Family history of ischemic heart disease and other diseases of the circulatory system; Z83.3 Family history of diabetes mellitus; Z87.19 Personal history of other diseases of the digestive system; Z90.710 Acquired absence of both cervix and uterus; Z95.3 Presence of xenogenic heart valve; J45.909 Unspecified asthma, uncomplicated; K21.9 Gastro-esophageal reflux disease without esophagitis; F41.9 Anxiety disorder, unspecified; F32.9 Major depressive disorder, single episode, unspecified
CPT/HCPCS: 36415; 71045; 80048; 80053; 80076; 83605; 83735; 83880; 84484; 85025; 85610; 87040; 87070; 87077; 87184; 87186; 87205; 87426; 87633; 87635; 93005; 94640; 97162; 97166; 97802; 99251; 99285; J7040; A4216; G0463; J0153; J1940; U0002

== ENCOUNTER → 2020-07-12 14:11 | Outpatient (CLI) | payer MEDICARE, OTHER, SELFPAY ==
[2020-07-07 19:59] VITALS: BMI 30.2
[2020-07-12 14:41] LABS: International Normalized Ratio 2.2
== END ==
PROVIDERS: PCP Family Medicine; Referring Provider Family Medicine; Visit Provider Family Medicine
DX: Z95.4 Presence of other heart-valve replacement (principal)
CPT/HCPCS: 85610

== ENCOUNTER → 2020-07-29 10:26 | Outpatient (CLI) | payer MEDICARE, OTHER, SELFPAY ==
[2020-07-28 11:05] VITALS: BMI 30.2
[2020-07-29 11:05] LABS: International Normalized Ratio 2.5; Prothrombin Time (Protime)PT. 26.8 SECONDS (11.7-14.9)
== END ==
PROVIDERS: PCP Family Medicine; Referring Provider Family Medicine; Visit Provider Family Medicine
DX: Z95.4 Presence of other heart-valve replacement (principal)
CPT/HCPCS: 85610

== ENCOUNTER 2020-08-23 13:00 | Outpatient (RCR) | payer MEDICARE, OTHER, SELFPAY ==
[2020-07-07 19:59] VITALS: BMI 30.2
--- NOTE | 2020-07-20 14:18 | HP.OTEVAL ---
Patient's Visit Information ELZA CHU is a 74 year old F, referred to Occupational Therapy by Dr. Chu Liz MD, with a diagnosis of debility. Date of Evaluation: 07/20/20 Occupational Therapist: Tia Ness, OTR/[place], CHT - Subjective This 74 year old female was seen for OT eval with dx of debility. Pt states she has had difficulty with walking and standing about three months ago. pt states she does not attend silver sneakers since her last heart sx 5 or so years ago. pt states she lives with her in a one story home with entry and no basements. pt states she is ok with walking inside her home. pt states she has a tub shower combination states she does get tired. is drying her hair for about 5 weeks. pt does not have a shower chair. pt states they have a cleaning lady every two weeks. pt states she does help with laundry, pt states she was doing cooking until she went in the hospital. pt states her has been doing the grocery shopping since the pendemic. pt states she was placed on 2 liters of O2 while sleeping or when needed after her recent stay at the hospital. pt states she does not remember a incident that cuased her weakness- pt and family. pt states since her cardioeversion about ten days ago she has noticed her legs feel stonger. Pt states she can only stand about 10 min and her low back starts to hurt and she needs to sit down. - ADLs Comments: can do but gets tired but does not have a shower chair Kitchen: Open jars, Open bottle caps Comments: limited due to limited standing Comments: pt states she drops a lot of objects, pt states she has trouble pushing the micowave buttons on - Strength Shotgun Shell Assembly Machine Operator: right 40# left 40# Lateral Pinch: right 8# left 4# Tripod Pinch: right 8# left 6# - Sensation Sensation Comments: denies - Nine Hole Peg Right: 23.6 Left: 27.6 - Quick DASH-Disab of Arm,Shoulder& Hand Quick DASH Score: 52.2725 - Goals Goal:: pt will demo a increase in BUE MMT to 4+/5 to increase pts ind. with ADls and IADL by d/c Goal:: Pt will report a decrease in dropping pill bottles to less than 1x week by d/c. pt will report the ability to perform meal prep without sitting by d/c - Rehabilitation General Assessment: pt demo with a decline in pts functional strength limiting pt with ADls and IADLs. pt would benefit from skilled OT services 2x week for 4 weeks to return pt to PLOF. Today therapist ed pt on UB PRE HEP pt demo understanding and agree to POC. also demo understanding and agree to POC Rehabilitation Potential: Good - Anticipated Interventions Strengthening, ADL Training, Education re assistive Equipment, Home Program - Visit Plan Frequency: 2-3x /Week Duration: 4 Weeks TEXT: Thank you for the opportunity to evaluate your patient. For Medicare and Medicare HMO plans, please review the plan of care and approve it. It will need to be FAXED BACK to us at [phone] for Medicare purposes. Please let me know if there are questions or concerns regarding this plan of care. Physician Signature: Date:
--- NOTE | 2020-07-20 14:56 | HP.PTEVAL ---
Patient's Visit Information ELZA CHU is a 74 year old F referred to Physical Therapy by Dr. Chu Liz MD with a diagnosis of Debilitation. Date of Evaluation: 07/20/20 Physical Therapist: Maximilian Arcos, PT, ATC - Visit Plan Frequency: 2-3x /Week Duration: 4-6 Weeks Plan: B LE strenthening, balance and proprio ex's, core strengthening, gait training, nustep, and HEP - Subjective Pt reports she feels like she has been getting more weak for the past 3 1/2 months. Pt notes she had cardiac issues which made her become very weak and and very little endurance for activity. Pt reports after having a cardio inversion, she beleieves she is getting back on the right track now. Pt reports no stairs at home. Pt reports she is sore today in her middle back. Pt reports the pain travels up her entire spine. Pt reports she has numbness in B feet throughout different regions. No recent falls. Pt has walked with a walker in the past. Pt reports she has been limited with all IADL's secondary to her debilitation status. - Objective Neuro: B LE sensation is WNL to light touch. B patellar reflex= 2/3. MMT: B LE's are grossly 4-/5 throughout. ROM: B LE's are WFL on this date. Gait: Pt was able to ambulate approximately 300 feet until SOB and needing to sit and rest. Balance: Pt is able to SLS for 30 sec, but displays significant sway throughout - Goals Goal 1:: Increase B LE strength x 1 grade to aid with gait tolerance Goal Time Frame: 4-6 Weeks Goal 2:: Pt will be able to ambulate greater than 700 feet to aid with community ambulation Goal Time Frame: 4-6 Weeks Goal 3:: I with HEP Goal Time Frame: 4-6 Weeks - Rehabilitation Potential Physical Therapy Diagnosis: Pt has LE weakness, difficulty with prolonged ambulation, and decreased balance secondary to debilitation from cardiac issues. Rehabilitation Potential: Good - Anticipated Interventions Patient/Client Instruction: Educate patient on: Condition, Plan of Care For the Purpose of:: To improve self management Therapeutic Exercise to Include: Strength training, Endurance training, Balance training, Gait and locomotor training, Dynamic Lumbar Stabilization For the Purpose of:: To increase oxygenation perfusion, To improve muscle performance and motor function, To improve ability to perform ADL's Thank you for the opportunity to evaluate your patient. For Medicare and Medicare HMO plans, please review the plan of care and approve it. It will need to be FAXED BACK to us at [phone] for Medicare purposes. For Medicare only, by signing this I certify the plan of care. Please let me know if there are questions or concerns regarding this plan of care. Physician Signature: Date:
--- NOTE | 2020-08-23 12:51 | HP.PTDCSUM ---
It has been my pleasure to treat ELZA CHU referred by Dr. Harley Cornejo MD, with the diagnosis of Debilitation for a total of 9 visit(s). Discharge Date: Please see the following information for a summary of their discharge status. Subjective: Pt reports she is ready for discharge R hip Pain Intensity (Out of 10): 0 LB Pain Intensity (Out of 10): 5 % Improvement: 50 Objective/Function: B LE MMT 5/5 throughout. Pt is able to ambulate 340 feet until having to rest secondary to SOB. Pt is I with HEP. All Rx goals achieved with exception to gait distance Goal 1:: Increase B LE strength x 1 grade to aid with gait tolerance Goal Progress: Goal Met Goal 2:: Pt will be able to ambulate greater than 700 feet to aid with community ambulation Goal Progress: Progressing Goal 3:: I with HEP Goal Progress: Goal Met Plan: Discontinue to HEP If there are questions or concerns regarding this patient's physical therapy, please feel free to call me at [phone]. Thank you for the referral of this patient. Sincerely, Maximilian Arcos, PT, ATC
--- NOTE | 2020-08-23 13:23 | HP.OTDCSUM_ITS ---
It has been my pleasure to treat ELZA CHU under orders from Dr. Harley Cornejo MD, for the diagnosis of debility for a total of 9 visit(s). Please see the following information for a summary of their discharge status. % Improvement: 90 Objective/Function: right sodium chlorite operator strength 45# left 40#. right lateral pinch 9# a increase from 8#- pt demo increase in strength and reports a decrease of assist from others with home mtg and ADLs tasks- pt has been ed. on energy conservation vikram. to limit her SOB. pt Patient Goals: Regain Strength, Be More Independent in ADLS Goal:: pt will demo a increase in BUE MMT to 4+/5 to increase pts ind. with ADls and IADL by d/c Goal:: Pt will report a decrease in dropping pill bottles to less than 1x week by d/c. pt will report the ability to perform meal prep without sitting by d/c Plan: D/C Discharge Comments: pt has been seen in OT for 9 visitis to increase pts functional strength for increase ind with ADLs. pt has met goals in OT and is d/c at this time. therapist as rec'd silver sneakers and to cont. with HEP. If there are questions or concerns regarding this patient's occupational therapy, please fell free to call me at [phone]. Thank you for the r eferral of this patient. Sincerely, Tia Ness, OTR/L, CHT
== END 2020-08-23 19:00 | disposition home or self-care (01) ==
LOC: OT 13:00
PROVIDERS: PCP Family Medicine; Referring Provider Family Medicine; Visit Provider Family Medicine
DX: I48.0 Paroxysmal atrial fibrillation (principal); I50.9 Heart failure, unspecified; R53.81 Other malaise
CPT/HCPCS: 97110; 97161; 97164; 97166; 97530

== ENCOUNTER 2020-09-30 02:01 | Emergency (ER) | payer MEDICARE, OTHER, SELFPAY ==
[2020-07-28 11:05] VITALS: BMI 30.2
[2020-09-30 02:05] VITALS: BP 192/79; PULSE 72; RESP 24; TEMP 36.6; O2SAT 87; BMI 30.1
[2020-09-30 02:09] VITALS: BP 168/72; PULSE 72; RESP 14; O2SAT 99
[2020-09-30 02:17] VITALS: O2SAT 96
--- NOTE | 2020-09-30 02:24 | EKG12_ITS ---
Test Reason : SOB Blood Pressure : / mmHG Vent. Rate : 068 BPM Atrial Rate : 068 BPM P-R Int : 184 ms QRS Dur : 090 ms QT Int : 424 ms P-R-T Axes : 000 013 058 degrees QTc Int : 450 ms Normal sinus rhythm Normal ECG Confirmed by LATOYA MAC, IRIS ([id number]), features editor BOBBY CARIAS ([id number]) on 10/04/2020 2:35:39 PM Referred By: KAYLA Confirmed By:IRIS KLEIN MD
--- NOTE | 2020-09-30 02:24 | RAD_ITS ---
STUDY: X-RAY CHEST REASON FOR EXAM: Female, 74 years old. cough TECHNIQUE: Single AP portable view of the chest. COMPARISON: 07/07/2020 FINDINGS: Elevated right hemidiaphragm, stable. Lungs are clear. There is no demonstrated pleural abnormality. There is mild cardiac enlargement. Stable median sternotomy wires. Normal mediastinum and chica. Normal visualized pulmonary arteries. Normal visualized aortic arch and descending thoracic aorta. Normal visualized thoracic spine. Normal visualized ribs, clavicles, and shoulders. There is no demonstrated abnormality of the visualized soft tissue structures of the upper abdomen. RAD/Chest 1 View (Portable) IMPRESSION: No acute cardiopulmonary disease Electronically Signed: Chriss Lala DO at 3:22 EST Tel , Service support ,
--- NOTE | 2020-09-30 02:25 | ED.VIS.GEN ---
History of Present Illness Chief Complaint: Shortness of Breath Informant: Patient Narrative: 84-year-old female presenting with chronic cough with a little bit of shortness of breath. Patient states she is always short of breath and she wears oxygen at home. Patient also notes that she has a metallic taste in her mouth and her feet are tingling bilaterally. She said that yesterday her legs were swollen. Patient denies fever, myalgias, change in smell. Not having any chest pain. Her legs are not currently swollen. - Past Medical History (1) Atrial fibrillation with rapid ventricular response Status: Chronic (2) Aneurysm, thoracic aortic Status: Chronic Past Medical History - Allergies and Home Meds Allergies/Adverse Reactions: Allergies donepezil Allergy (Severe, Verified 07/28/20 14:16) shortness of breath Sulfa (Sulfonamide Antibiotics) Allergy (Verified 07/28/20 14:16) Swelling celecoxib [From Celebrex] Adverse Reaction (Severe, Verified 09/30/20 02:12) Swelling dextromethorphan [From Delsym] Adverse Reaction (Severe, Verified 09/30/20 02:12) hallucination adhesive Adverse Reaction (Verified 09/30/20 02:12) blisters BLISTERS codeine Adverse Reaction (Verified 09/30/20 02:12) Itching levofloxacin [From Levaquin] Adverse Reaction (Verified 09/30/20 02:12) pain in legs and swelling PAIN IN LEG AND SWELLING lisinopril Adverse Reaction (Verified 09/30/20 02:12) cough oxycodone [Oxycodone] Adverse Reaction (Verified 09/30/20 02:12) Itching oxycodone HCl [From Percocet] Adverse Reaction (Verified 09/30/20 02:12) Itching AND MAKES HEAD FEEL FUNNY Penicillins Adverse Reaction (Verified 09/30/20 02:12) heart palpitations HEART PALPITATIONS prochlorperazine edisylate [From Compazine] Adverse Reaction (Verified 09/30/20 02:12) Low blood pressure prochlorperazine maleate [From Compazine] Adverse Reaction (Verified 07/28/20 14:16) Low blood pressure tramadol HCl [From Ultram] Adverse Reaction (Verified 07/28/20 14:16) Itching Primary Care Physician: Harley Cornejo MD [Primary Care Provider] - Prior records reviewed: No Past Medical History: - - Atrial fibrillation, CHF, thoracic aneurysm, HERLINDA, GERD, HPL, asthma Surgical History: hysterectomy, - - 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 Lives: Spouse/ Significant Other Smoking Status: Never smoker - Family History Paternal Family History: Family History (Last Reviewed 07/28/20 @ 14:27 by Joy Adame [employer], [employer]) Mother Arthritis CAD (coronary artery disease) Father Arthritis High cholesterol CAD (coronary artery disease) Sister Diabetes High cholesterol Hypertension Brother Diabetes High cholesterol Hypertension Family History: Reports: Heart Disease - age 76 Maternal Family History: Family History (Last Reviewed 07/28/20 @ 14:27 by Joy Adame NP, [employer]) Mother Arthritis CAD (coronary artery disease) Father Arthritis High cholesterol CAD (coronary artery disease) Sister Diabetes High cholesterol Hypertension Brother Diabetes High cholesterol Hypertension Family History: Reports: - - PD Sibling Family History: Family History (Last Reviewed 07/28/20 @ 14:27 by Joy Adame NP, [employer]) Mother Arthritis CAD (coronary artery disease) Father Arthritis High cholesterol CAD (coronary artery disease) Sister Diabetes High cholesterol Hypertension Brother Diabetes High cholesterol Hypertension Family History: Reports: Diabetes Review of Systems General: Denies: Chills, Fever Eyes: Denies: Visual changes - bilaterally, Diplopia ENT: Denies: Rhinorrhea, Sore throat Cardiovascular: Denies: Chest pain, Palpitations Respiratory: Reports: Dyspnea, Cough Gastrointestinal: Denies: Abdominal pain, Nausea, Vomiting Genitourinary: Denies: Dysuria, Hematuria Musculoskeletal: Reports: Swelling - Leg swelling. Denies: Myalgias, Arthralgias Skin: Denies: Rash, Abscess Neurological: Reports: Parasthesia - Tingling to the dorsum of bilateral feet. Denies: Headache, Weakness Physical Exam Vital Signs/Narrative: Vital Signs Temp Pulse Resp BP Pulse Ox 09/30/20 02:09 72 14 168/72 H 99 09/30/20 02:05 97.8 F 72 24 H 192/79 H 87 Inital Vital Signs reviewed: Yes General: Well nourished, No Acute Distress Head: Normocephalic, Atraumatic Eyes: Perrl, EOMI ENT: Moist mucous membranes, No rhinorrhea Cardiovascular: Regular rate, Regular rhythm Respiratory: No distress, Chest nontender, Rhonchi Extremities: Nontender, No edema, - - Bilateral feet are neurovascular intact. 2+ pedal pulses. Brisk cap refill. Skin: Normal color, No rash Psychological: Normal affect, Normal Mood Diagnostic/Tx/Re-eval - Medical Decision Making Patient presenting for shortness of breath and numbness and tingling in bilateral dorsum of her feet. She associates this with intermittent leg swelling. Currently the legs do not look that swollen to me. She does not have tenderness. Her INR is 3 so I do not have suspicion of DVT. Patient's feet are neurovascularly intact with brisk pulses and normal sensation. Patient is ambulatory. Given patient's shortness of breath I did do blood work and EKG as well as chest x-ray. Chest x-ray one-view portable as interpreted by myself shows no acute cardiopulmonary process. EKG is sinus rhythm without signs of ischemic changes interpreted by myself. White blood cell count 6.2, hemoglobin 10.4 that is slightly lower than her previous lab work a year ago, platelets 364. She does not complain of any black or bloody stools. She has had no hematemesis. INR is slightly supratherapeutic at 3.2. I think DVT or PE would be unlikely given this. Troponin was negative. BNP was negative patient is wearing her baseline oxygen. She has no visible edema. I think she is safe to be discharged home at this time. Impression: 1. Dyspnea 2. Intermittent leg swelling ED Disposition - Plan for ED Patient: Disposition: Home or Assisted Living Instructions: ED Dyspnea, ED Peripheral Edema, Bilateral Referrals: Harley Cornejo MD [Primary Care Provider] -
[2020-09-30 03:06] LABS: Absolute Lymphocyte Count 0.81 X10^3/uL (0.83-4.51); Absolute Neutrophil Count 4.6 X10^3/uL (2.0-7.7); Basophil# 0.05 X10^3/uL; Basophil% 0.8 % (0-1); Eosinophils% 3.2 % (0-5); Hemoglobin 10.4 g/dL (12.0-15.0); Lymphocyte # 0.81 X10^3/ul (4.0); Mean Corp Hgb Conc 28.9 g/dL (32-36); Mean Corpuscular Hgb 23.5 pg (27.0-32.0); Mean Corpuscular Volume 81.4 fL (81-99); Mean Platelet Vol. 10.5 fl (6.2-12.0); NRBC Flagged by Analyzer 0 % (0-5); Neutrophil # 4.64 X10^3/uL (2.7-7.7); Neutrophil % 74.7 % (47-70); Platelet Count 364 K/mm3 (150-450); RBC Distribution Width CV 15.7 % (11.6-14.6); RBC Distribution Width SD 46.5 fl (35.1-43.9); Red Blood Count 4.42 M/mm3 (4.2-5.4); White Blood Count 6.2 K/mm3 (4.4-11.0)
[2020-09-30 03:22] LABS: International Normalized Ratio 3.2; Prothrombin Time (Protime)PT. 32.4 SECONDS (11.7-14.9)
[2020-09-30 03:27] LABS: ALB/GLOB Ratio 0.9 RATIO (0.9-2.4); AST(SGOT) 20 U/L (15-37); Alanine Aminotransfer ALT/SGPT 19 U/L (13-56); Albumin, Serum 3.2 g/dL (3.2-5.0); Alkaline Phosphatase 79 U/L (45-117); Anion Gap 7 (5-15); BUN 18 mg/dL (7-18); BUN/Creat Ratio 16.1 RATIO (10-20); Calcium,Total 9.1 mg/dL (8.5-10.1); Chloride 105 mmol/L (98-107); Creatinine, Serum 1.12 mg/dL (0.55-1.02); EST Glomerular Filtration Rate 50 mL/min (>60); Est Glom Filt Rate - Afr Amer 61 mL/min (>60); Globulin 3.5 g/dL (2.2-4.2); Glucose 93 mg/dL (74-106); Potassium 3.5 mmol/L (3.5-5.1); Protein, Total 6.7 g/dL (6.4-8.2); Sodium Level 142 mmol/L (136-145)
[2020-09-30 03:30] LABS: BNP,B-Type NATRIURETIC PEPTIDE 96.5 pg/mL (0-100)
[2020-09-30 04:08] VITALS: PULSE 109; RESP 13; O2SAT 96
[2020-09-30 04:19] VITALS: PULSE 60; RESP 16; TEMP 36.6; O2SAT 98
== END 2020-09-30 05:09 | disposition home or self-care (01) ==
PROVIDERS: Emergency Provider Student in an Organized Health Care Education/Training Program; PCP Family Medicine
DX: R06.00 Dyspnea, unspecified (principal); M79.89 Other specified soft tissue disorders; R06.02 Shortness of breath; R20.0 Anesthesia of skin; I48.91 Unspecified atrial fibrillation; I50.9 Heart failure, unspecified; G47.33 Obstructive sleep apnea (adult) (pediatric); K21.9 Gastro-esophageal reflux disease without esophagitis; J45.909 Unspecified asthma, uncomplicated; Z82.49 Family history of ischemic heart disease and other diseases of the circulatory system; Z82.61 Family history of arthritis; Z83.3 Family history of diabetes mellitus; Z83.49 Family history of other endocrine, nutritional and metabolic diseases; Z88.0 Allergy status to penicillin; Z88.1 Allergy status to other antibiotic agents; Z88.2 Allergy status to sulfonamides; Z88.5 Allergy status to narcotic agent; Z88.6 Allergy status to analgesic agent; Z88.8 Allergy status to other drugs, medicaments and biological substances; Z90.710 Acquired absence of both cervix and uterus; Z95.3 Presence of xenogenic heart valve
CPT/HCPCS: 71045; 80053; 83880; 84484; 85025; 85610; 87040; 87426; 93005; 99284; A4216

== ENCOUNTER 2020-10-09 13:37 | Observation (INO) | payer MEDICARE, OTHER, SELFPAY ==
[2020-10-09] VITALS (14 sets, daily range): BP systolic 105–162; BP diastolic 63–86; PULSE 61–79; RESP 18–24; TEMP 36.4–36.9; O2SAT 92–96; BMI 30.1; BMI 29.2
--- NOTE | 2020-10-09 14:00 | CT_ITS ---
EXAM: CT HEAD WITHOUT INTRAVENOUS CONTRAST CLINICAL INDICATION: Hallucinations TECHNIQUE: Multiple axial images were obtained of the head without intravenous contrast. This CT exam was performed using one or more of the following dose reduction techniques: automated exposure control, adjustment of the mA and/or kV according to patient size, and/or use of iterative reconstruction technique. This report was created using [employer] report generation technology. COMPARISON: 12/28/2018 FINDINGS: BRAIN AND EXTRA-AXIAL SPACES: Central parenchymal volume loss. White matter changes that are nonspecific but most commonly associated with chronic small vessel ischemic disease. No intra- or extra-axial hemorrhage. No intracranial mass or mass effect. Posterior fossa structures are unremarkable. Ventricles are appropriate for age. No hydrocephalus. Basal cisterns are patent. BONES/JOINTS: Unremarkable. No discrete lytic or blastic abnormalities. SINUSES: Worsening bilateral sinusitis particularly involving the maxillary sinuses, left sphenoid sinus. Prior sinus surgery noted. MASTOID AIR CELLS: Unremarkable. Clear. ORBITS: Visualized globes, extraocular muscles, optic nerves and retrobulbar fat appear unremarkable. CT/Brain/Head without Contrast IMPRESSION: No acute intracranial hemorrhage or mass effect. Worsening paranasal sinus disease. Electronically Signed: Ben Aguila MD ([place]) at 14:52 EST , Service support ,
--- NOTE | 2020-10-09 14:00 | RAD_ITS ---
STUDY: X-RAY CHEST REASON FOR EXAM: Female, 74 years old. Cough TECHNIQUE: AP COMPARISON: 09/30/2020 FINDINGS: EKG leads project over the chest. Lungs continue to be hypoexpanded with elevation of the right hemidiaphragm. Increasing parenchymal opacity in the lung bases as compared to the prior study, particularly in the retrocardiac left lower lobe. There is no demonstrated pleural abnormality. There is mild cardiac enlargement. Sternal wires and mediastinal surgical clips compatible with prior CABG. Normal visualized pulmonary arteries. There is atherosclerotic calcification of the aortic arch with tortuosity. No acute bony process. There is no demonstrated abnormality of the visualized soft tissue structures of the upper abdomen. RAD/Chest 1 View (Portable) IMPRESSION: 1. Hypoinflation. Bibasilar opacities may represent atelectasis versus pneumonia. Electronically Signed: Ben Aguila MD ([place]) at 14:54 EST , Service support ,
--- NOTE | 2020-10-09 14:01 | EKG12_ITS ---
Test Reason : SOB Blood Pressure : / mmHG Vent. Rate : 066 BPM Atrial Rate : 066 BPM P-R Int : 176 ms QRS Dur : 086 ms QT Int : 432 ms P-R-T Axes : -08 010 042 degrees QTc Int : 452 ms Normal sinus rhythm Possible Inferior infarct , age undetermined Abnormal ECG Confirmed by CHERELLE MAC, MARTIN ([id number]), social media editor BOBBY CARIAS ([id number]) on 10/11/2020 10:55:26 A M Referred By: KELSEY Confirmed By:TOM VILLARREAL MD
--- NOTE | 2020-10-09 14:04 | ED.VISSUMM ---
- ER Visit Summary Date of Service: 10/09/20 Chief Complaint: Shortness of breath History of Present Illness: The patient is a 74 F who presents with shortness of breath and cough that has been getting worse over the past 3 days. Patient states she is chronically short of breath but this has gotten worse over the past 3 days. Patient states her breathing is worse with any exertion and with laying flat. Patient states her breathing is better whenever she sits up. Patient states she is coughing up some yellow and brown sputum. Patient denies any fevers or chills. Patient does admit to some chronic rhinorrhea and sore throat. Patient also admits to some mild dull pain in the left parasternal area. Patient also admits to visual hallucinations that started recently. Patient states she sees people in her house. Family member reports that the patient thinks that there are people living in their attic. Patient had her first COVID-19 vaccine 2 weeks ago and is scheduled for the second dose in 2 weeks. Physical Examination: Vital signs are stable except for mild tachypnea of 24. Patient is afebrile. Patient is in no acute distress. Neck is supple. Trachea is midline. There is no JVD. Heart was regular rate and rhythm. Lungs showed scattered rhonchi. There is good respiratory effort noted. Abdomen is soft. Bowel sounds are normal. There is no tenderness. Cranial nerves II through XII are grossly intact. There are no focal motor or sensory deficits noted. Extremities are intact. There is no calf tenderness or edema. Test Results: Portable 1 view chest x-ray was obtained. On my interpretation, lung godwin are hypoinflated. There is normal cardiac silhouette. Bony thorax is normal. There is no acute process noted. CT scan of the brain was obtained. There is no acute intracranial abnormality noted. CBC, comprehensive metabolic profile, and troponin were obtained and were within normal limits. Arterial blood gas was normal. Urinalysis does not show any evidence of urinary tract infection. PT with INR and PTT were normal. COVID-19 rapid antigen was obtained and was negative. Emergency Department Course and Treatment: Patient was advised of her findings. Patient is feeling somewhat better on reevaluation. Case was discussed with the hospitalist. She will admit the patient to her service. Patient and family understood and were agreeable with the plan. All questions were answered. Disposition: Admit to hospital Impression: 1. Visual hallucinations This note was generated with [employer] dictation software. It may contain incorrect words, spelling, and punctuation that were not noted in review of the chart prior to signing ED Disposition - Plan for ED Patient: Disposition: Acute Care [facility] Diagnosis: Visual hallucinations Referrals: Harley Cornejo MD [Primary Care Provider] -
[2020-10-09 14:24] LABS: Absolute Lymphocyte Count 0.87 X10^3/uL (0.83-4.51); Absolute Neutrophil Count 5.3 X10^3/uL (2.0-7.7); Basophil# 0.05 X10^3/uL; Basophil% 0.7 % (0-1); Eosinophil# 0.14 X10^3/uL; Hematocrit 35.5 % (37-47); Hemoglobin 10.1 g/dL (12.0-15.0); Lymphocyte # 0.87 X10^3/ul (4.0); Lymphocyte % 12.3 % (19-41); Mean Corp Hgb Conc 28.5 g/dL (32-36); Mean Corpuscular Hgb 23.1 pg (27.0-32.0); Mean Corpuscular Volume 81.1 fL (81-99); Mean Platelet Vol. 9.8 fl (6.2-12.0); Monocyte# 0.68 X10^3/uL; Monocyte% 9.6 % (0-10); NRBC Flagged by Analyzer 0 % (0-5); Neutrophil # 5.28 X10^3/uL (2.7-7.7); Platelet Count 352 K/mm3 (150-450); RBC Distribution Width CV 15.6 % (11.6-14.6); Red Blood Count 4.38 M/mm3 (4.2-5.4); White Blood Count 7.1 K/mm3 (4.4-11.0)
[2020-10-09 14:32] LABS: International Normalized Ratio 2.8; Prothrombin Time (Protime)PT. 29.1 SECONDS (11.7-14.9)
[2020-10-09 14:33] LABS: Partial Thromboplast Time 35.5 Seconds (24.1-36.2)
[2020-10-09 14:40] LABS: ALB/GLOB Ratio 0.9 RATIO (0.9-2.4); AST(SGOT) 14 U/L (15-37); Alanine Aminotransfer ALT/SGPT 16 U/L (13-56); Albumin, Serum 3.1 g/dL (3.2-5.0); Alkaline Phosphatase 78 U/L (45-117); Anion Gap 5 (5-15); BUN 17 mg/dL (7-18); Calcium,Total 8.9 mg/dL (8.5-10.1); Chloride 107 mmol/L (98-107); EST Glomerular Filtration Rate 57 mL/min (>60); Est Glom Filt Rate - Afr Amer 69 mL/min (>60); Estimated Creatinine Clearance 40.21 ml/min; Globulin 3.5 g/dL (2.2-4.2); Glucose 80 mg/dL (74-106); Potassium 3.6 mmol/L (3.5-5.1); Protein, Total 6.6 g/dL (6.4-8.2); Sodium Level 142 mmol/L (136-145)
[2020-10-09 15:15] LABS: Allen Test Positive; Base Excess 6 mmol/L (-2 to +2); Bicarbonate 30.2 mmol/L (22-26); Blood Gas Specimen Type ART; FI02 21; O2 Delivery Device Room Air; PO2 69 mmHG (75-100); SITE L Radial; SO2 94 % (95-99); Total Carbon Dioxide 32 mmol/L; pCO2 45.2 mmHg (35-45); pH 7.43 (7.35-7.45)
[2020-10-09 15:21] LABS: Bacteria 0 SEEN /hpf (None Seen); Mucous, Urine 0 SEEN /hpf (<or=2+)
[2020-10-09 15:34] LABS: Color, Urine Yellow (Yellow); Glucose, Dipstick Normal (Normal); Ketone-Dipstick Negative (Negative); Leukocyte Esterase-Dipstick 25 /ul (Negative); Nitrite-Dipstick Negative (Negative); Occult Blood-Urine 10 /ul (Negative); Protein-Dipstick Negative (Negative); Urine Bilirubin Dipstick Negative (Negative); Urine Clarity Clear (Clear); Urine Urobilinogen Normal (Normal)
[2020-10-09 15:47] LABS: Squamous Epithelial Cells - UA 0-5 SEEN /hpf (5-10); Transitional Epithelial - Ur 0-5 SEEN /hpf (0-5)
[2020-10-09 15:48] LABS: Red Blood Cells-Urine 0-5 SEEN /hpf (0-5); White Blood Cells 0-5 SEEN /hpf (0-5)
--- NOTE | 2020-10-09 16:04 | PCM.HP.STD ---
Problem List (1) Encephalopathy acute Status: Acute (2) Visual hallucinations Status: Chronic Comment: Unclear etiology, ongoing since 02/2020 per report, following outpatient with [facility] physician, recommended wean off paxil and change to alternate agent as start. (3) PAF (paroxysmal atrial fibrillation) Status: Chronic (4) Chronic diastolic heart failure Status: Chronic (5) HERLINDA (obstructive sleep apnea) Status: Chronic (6) History of mechanical aortic valve replacement Status: Chronic Comment: [id number], 2003, Redo AVR 10/10 (#21 On-X mechanical valve) (7) Essential hypertension Status: Chronic (8) Allergic rhinitis Status: Chronic Qualifiers: Allergic rhinitis trigger: unspecified Allergic rhinitis seasonality: unspecified Qualified Code(s): J30.9 - Allergic rhinitis, unspecified (9) GERD (gastroesophageal reflux disease) Status: Chronic Qualifiers: Esophagitis presence: esophagitis presence not specified Qualified Code(s): K21.9 - Gastro-esophageal reflux disease without esophagitis (10) Anxiety Status: Chronic (11) Atherosclerotic heart disease of [place] coronary artery without angina pectoris Status: Chronic Qualifiers: [place] vs. transplanted heart: [place] heart Qualified Code(s): I25.10 - Atherosclerotic heart disease of [place] coronary artery without angina pectoris Comment: Mild (12) Hyperlipidemia Status: Chronic Qualifiers: Hyperlipidemia type: unspecified Qualified Code(s): E78.5 - Hyperlipidemia, unspecified (13) Obesity Status: Chronic Qualifiers: Obesity type: unspecified obesity type Obesity classification: adult class 1 (BMI 30 - 34.9) Body mass index: BMI 30.0-30.9 (14) Asthma Status: Chronic Qualifiers: Asthma severity: unspecified severity Asthma persistence: unspecified Asthma complication type: unspecified Qualified Code(s): J45.909 - Unspecified asthma, uncomplicated (15) Chronic sinusitis Status: Chronic Qualifiers: Sinusitis location: unspecified location Qualified Code(s): J32.9 - Chronic sinusitis, unspecified Comment: H/O Pseudomonas, MRSA History of Present Illness Date of Admission: 10/09/20 Chief Complaint: Dyspnea, confusion above baseline, hallucinations. The patient is a 74 y/o F w/ PMHx: Asthma, HTN, HLD, Dementia of recent onset without behavioral disturbance history, HERLINDA with q HS oxygen only not using CPAP or BIPAP, Prediabetes mellitus type II, Anxiety and Depression, PAF, Chronic diastolic CHF, Valvular Heart Disease s/p AVR mechanical valve, Chronic sinusitis (reported MRSA, pseudomonas), GERD who presents to the [facility] ED on 10/09/20 with history of worsening cough over the last several days, noting she was vaccinationed for COVID 2 weeks prior with now worsening dyspnea and hallucinations (seeing people who are not there in her home) starting the evening prior. She reports worsening dyspnea with exertion and prone positioning. She has ongong coughing with yellow sputum occasoinally. She denies any associated fever or chills. Following further extensive discussions she notes that she has been already having visual hallucinations since the prior February intermittently, often focusing on people living in her attic space. She notes frequently coughing with liquid and food intake. She has chronic sinus issues with post-nasal drip and facial discomfort, unchanged. Work-up in the ED included T 97.6, heart rate 72, BP 109/86, respiratory rate 24, 95% on room air, CBC with WC 7.1, hemoglobin 10.1, platelet 352 without marked shift, coags with PT 29.1, INR 2.8, PTT 35.5, ABG with pH 7.43, bicarb 30.2, O2 saturation 94%, PCO2 mildly elevated 45.2, PO2 69 on room air, CMP unremarkable, troponin less than 0.015, UA unremarkable, blood culture x2 pending per ED, rapid Covid antigen negative, urine culture pending per ED, CT of the brain with worsening parasinus disease otherwise no acute intracranial hemorrhage or mass-effect, chest x-ray with hyperinflation with bibasilar opacities possibly representing atelectasis versus pneumonia, EKG with with sinus rhythm with non-specific changes. Past Medical History Past Medical History (Chronic Problems): Chronic Problems (Last Reviewed 07/28/20 @ 14:27 by Joy Adame DENTAL HYGIENE ADMINISTRATIVE ASSISTANT, DENTAL HYGIENE ADMINISTRATIVE ASSISTANT-C) PAF (paroxysmal atrial fibrillation) (Chronic) Visual hallucinations (Chronic) Unclear etiology, ongoing since 02/2020 per report, following outpatient with physician, recommended wean off paxil and change to alternate agent as start. Atrial fibrillation with rapid ventricular response (Chronic) Aneurysm, thoracic aortic (Chronic) Chronic diastolic heart failure (Chronic) HERLINDA (obstructive sleep apnea) (Chronic) Pseudomonas respiratory infection (Chronic) History of recurrent pseudomonal infections in the past Bronchiectasis (Chronic) History of mechanical aortic valve replacement (Chronic ~10/07/13) [id number]-[id number], 2003, Redo AVR 10/10 (#21 On-X mechanical valve) Essential hypertension (Chronic) Allergic rhinitis (Chronic) GERD (gastroesophageal reflux disease) (Chronic) Hypoxemia (Chronic) Anxiety (Chronic) Atherosclerotic heart disease of [place] coronary artery without angina pectoris (Chronic) Mild Palpitations (Chronic) Nonspecific chest pain (Chronic) Aneurysm, thoracic aortic (Chronic) Nonrheumatic aortic valve regurgitation (Chronic) Fatigue (Chronic) Hyperlipidemia (Chronic) Obesity (Chronic) Asthma (Chronic) Chronic sinusitis (Chronic) H/O Pseudomonas, MRSA Medical History: Medical History (Last Reviewed 07/28/20 @ 14:27 by Joy Adame DENTAL HYGIENE ADMINISTRATIVE ASSISTANT, DENTAL HYGIENE ADMINISTRATIVE ASSISTANT-C) Chronic diastolic heart failure (Chronic) I50.32 Bronchiectasis (Chronic) J47.9 Essential hypertension (Chronic) I10 Cough (Acute) R05 Allergic rhinitis (Acute) J30.9 GERD (gastroesophageal reflux disease) (Chronic) K21.9 Hypoxemia (Chronic) R09.02 Anxiety (Chronic) F41.9 Chronic anticoagulation (Acute) Z79.01 Hemoptysis (Acute) R04.2 Atherosclerotic heart disease of [place] coronary artery without angina pectoris (Chronic) I25.10 Mild Palpitations (Chronic) R00.2 Nonspecific chest pain (Chronic) R07.9 Aneurysm, thoracic aortic (Chronic) I71.2 Nonrheumatic aortic valve regurgitation (Chronic) I35.1 Fatigue (Chronic) R53.83 Hyperlipidemia (Chronic) E78.5 Obesity (Chronic) E66.9 Asthma (Chronic) J45.909 Chronic sinusitis (Chronic) J32.9 H/O Pseudomonas, MRSA Depression F32.9 Hiatal hernia K44.9 Aortic stenosis I35.0 S/P AVR in February 2004 with Mitchell Hernandez; redo AVR in September 2013 with a #21 O-X mechanical valve CAP (community acquired pneumonia) J18.9 History of cardioversion Onset Date: ~07/08/20 Z98.890 Severe sepsis A41.9, R65.20 Syncope and collapse (Resolved) R55 Chronic a-fib (Inactive) I48.2 Hypertension (Inactive) I10 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 (Inactive) Allergies donepezil Allergy (Severe, Verified 10/09/20 13:42) shortness of breath Sulfa (Sulfonamide Antibiotics) Allergy (Verified 10/09/20 13:42) Swelling celecoxib [From Celebrex] Adverse Reaction (Severe, Verified 10/09/20 13:42) Swelling dextromethorphan [From Delsym] Adverse Reaction (Severe, Verified 10/09/20 13:42) hallucination adhesive Adverse Reaction (Verified 10/09/20 13:42) blisters BLISTERS codeine Adverse Reaction (Verified 10/09/20 13:42) Itching levofloxacin [From Levaquin] Adverse Reaction (Verified 10/09/20 13:42) pain in legs and swelling PAIN IN LEG AND SWELLING lisinopril Adverse Reaction (Verified 10/09/20 13:42) cough oxycodone [Oxycodone] Adverse Reaction (Verified 10/09/20 13:42) Itching oxycodone HCl [From Percocet] Adverse Reaction (Verified 10/09/20 13:42) Itching AND MAKES HEAD FEEL FUNNY Penicillins Adverse Reaction (Verified 10/09/20 13:42) heart palpitations HEART PALPITATIONS prochlorperazine edisylate [From Compazine] Adverse Reaction (Verified 10/09/20 13:42) Low blood pressure prochlorperazine maleate [From Compazine] Adverse Reaction (Verified 10/09/20 13:42) Low blood pressure tramadol HCl [From Ultram] Adverse Reaction (Verified 10/09/20 13:42) Itching Home Medications: Ambulatory Orders Medication Instructions Recorded Pantoprazole Sodium [Protonix] 40 mg PO BID 01/14/15 buPROPion XL [Wellbutrin Xl] 150 mg PO DAILY 11/15/15 Montelukast [Singulair] 10 mg PO QHS 05/03/17 Potassium Chloride Oral Tablet 20 meq PO DAILY 05/03/17 [K-Dur] aspirin 81 mg chewable tablet 162 mg PO DAILY tab 09/04/17 lorazepam 0.5 mg tablet 0.5 mg PO BID PRN 09/04/17 Furosemide [Lasix] 40 mg PO DAILY #0 12/06/17 albuterol sulfate 2.5 mg INHALATION Q4H PRN 12/20/17 cholecalciferol (vitamin D3) 1,250 50,000 unit PO FR 06/16/19 mcg (50,000 unit) capsule albuterol sulfate 90 mcg/actuation 2 puff INHALATION Q4H PRN #18 g 12/09/19 aerosol inhaler azelastine 137 mcg (0.1 %) nasal 1 spray INTRANASAL BID #30 ml 01/19/20 spray aerosol metoprolol succinate 50 mg 50 mg PO DAILY #90 tab 07/06/20 tablet,extended release 24 hr Acetaminophen [Tylenol Arthritis] 650 mg PO Q6H PRN 07/07/20 Paroxetine HCl 20 mg PO DAILY 07/07/20 pravastatin 80 mg tablet 80 mg PO QHS #90 tab 07/27/20 amiodarone 200 mg tablet 100 mg PO DAILY #45 tab 08/02/20 budesonide-formoterol HFA 160 2 inh INHALATION BID #10.2 g 08/17/20 mcg-4.5 mcg/actuation aerosol inhaler ezetimibe 10 mg tablet 10 mg PO DAILY #90 tab 09/20/20 Warfarin [Coumadin] 3 mg PO SUTUTHSA 09/30/20 Warfarin [Coumadin] 4.5 mg PO MOWEFR 09/30/20 Surgical History: Surgical History (Last Reviewed 07/28/20 @ 14:27 by Joy Adame DENTAL HYGIENE ADMINISTRATIVE ASSISTANT, DENTAL HYGIENE ADMINISTRATIVE ASSISTANT-C) History of mechanical aortic valve replacement (Chronic) Onset Date: ~10/07/13 Z95.2 [id number], 2003, Redo AVR 10/10 (#21 On-X mechanical valve) History of back surgery Z98.890 History of foot surgery Z98.890 History of hysterectomy Z90.710 History of sinus surgery Z98.890 H/O aortic valve replacement (Inactive) Z95.2 [id number]-Mspgpz, 2003, Redo AVR 10/10 (#21 On-X mechanical valve) Surgical History: hysterectomy, - - Aortic valve replacement mechanical after bovine, sinus surgery x 4, back surgery, colonoscopy 2011 with polyps removed, foot surgery, hysterectomy. Psychiatric History: Anxiety, Depression PATIENT SITTER History: No pertinent PATIENT SITTER history Lives: Spouse/ Significant Other Smoking Status: Never smoker Tobacco Use: Non-smoker Alcohol: None Drugs: None - *Family History Paternal Family History: Family History (Last Reviewed 07/28/20 @ 14:27 by Joy Adame DENTAL HYGIENE ADMINISTRATIVE ASSISTANT, DENTAL HYGIENE ADMINISTRATIVE ASSISTANT-C) Mother Arthritis CAD (coronary artery disease) Father Arthritis High cholesterol CAD (coronary artery disease) Sister Diabetes High cholesterol Hypertension Brother Diabetes High cholesterol Hypertension History Items: High Cholesterol, Heart Disease - age 76, Hypertension Maternal Family History: Family History (Last Reviewed 07/28/20 @ 14:27 by Joy Adame NP, DENTAL HYGIENE ADMINISTRATIVE ASSISTANT-C) Mother Arthritis CAD (coronary artery disease) Father Arthritis High cholesterol CAD (coronary artery disease) Sister Diabetes High cholesterol Hypertension Brother Diabetes High cholesterol Hypertension History Items: High Cholesterol, Heart Disease, Hypertension, - - PD Sibling Family History: Family History (Last Reviewed 07/28/20 @ 14:27 by Joy Adame NP, DENTAL HYGIENE ADMINISTRATIVE ASSISTANT-C) Mother Arthritis CAD (coronary artery disease) Father Arthritis High cholesterol CAD (coronary artery disease) Sister Diabetes High cholesterol Hypertension Brother Diabetes High cholesterol Hypertension History Items: Diabetes Review of Systems Constitutional: Denies: Anorexia, Chills, Fever, Malaise, Weakness, Weight Change, Fatigue HEENT: Reports: Post Nasal Drip, Sinus Drainage, - - Coughing with food/liquid intake.. Denies: Head Aches, Sinus Congestion Cardiovascular: Denies: Chest Pain, Palpitations Respiratory: Reports: Cough, Shortness of Breath, Shortness of breath upon exertion, Sputum production. Denies: Shortness of breath at rest Gastrointestinal: Denies: Abdominal Pain, Nausea, Vomiting Genitourinary: Denies: Dysuria Musculoskeletal: Reports: Back Pain, Joint Pain. Denies: Joint Tenderness Skin: Denies: Rash, Wounds Neurological: Reports: Confusion. Denies: Focal weakness, Numbness, Tingling Psychiatric: Reports: Anxiety, Depression, - - Visual hallucinations.. Denies: Homicidal Ideations, Suicidal Ideations Hematologic/ Lymphatic: Reports: Easy Bruising, Easy Bleeding VTE Information - Inpt Only VTE Present on Admission: No VTE Mechan Device Prophylaxis: SCD's VTE Pharm Prophylaxis ordered?: No Reason prophylaxis not ordered:: Treatment Not Indicated - Continue home coumadin with INR trending. Patient Problems: Active and Suspected Problems (Last Reviewed 07/28/20 @ 14:27 by Joy Adame NP, DENTAL HYGIENE ADMINISTRATIVE ASSISTANT-C) Encephalopathy acute (Acute) Subjective: Patient seated upright in the ED bed, NAD, no acute complaints upon evaluation. Objective: Physical Examination: General: awake, alert, oriented x 3 including to self, place, recently events, cooperative, seated upright in the ED bed in no apparent distress. Skin: normal color, turgor, no icterus, cyanosis. HEENT: AT/NC, EOMI, PERRLA, MMM, no carotid bruits or JVD noted, mild upper airways sounds, difficulty clearing upper airway, posterior OP erythema/post-nasal drip, mild BL facial pressure discomfort, chronic per patient and unchanged. Lungs: Diminished BS, decreased effort, kyphotic, coarse-rhonchorous BL, no rales or wheezing. Heart: Regular rate and rhythm; no gallop, rub audible. Abdomen: soft, obese, NTTP, ND, normal BS, no HSM. Extremities: no cyanosis or clubbing, mild BL ankle pitting 1+ edema which is new per patient. Neurological: patient awake, alert, oriented as noted; underlying dementia history, currently appears appropriate w/ cognitive function intact; pupils equally reactive to light and accomodation; cranial nerves II-XII grossly normal, moving all 4 extremities, no focal deficits, strength mildly globally decreased. Psychiatric: affect appears normal, no acute evidence of depressive or anxiety feelings. - Physical Exam Vitals/I&O's: Vital Signs Temp Pulse Resp BP Pulse Ox 98.4 F 65 23 H 153/63 H 94 10/09/20 15:00 10/09/20 15:37 10/09/20 15:37 10/09/20 15:37 10/09/20 15:37 Oxygen Delivery Method Room Air Weight: 170 lb Body Mass Index (BMI) 30.1 Finger Stick Blood Glucose 93 Microbiology Past 72 Hours 10/09/20 14:16 Mucosa - Nose SARS-CoV-2 Antigen (Rapid) - Final Laboratory Results 10/09/20 14:13: WBC 7.1, RBC 4.38, Hgb 10.1 L, Hct 35.5 L, MCV 81.1, MCH 23.1 L, MCHC 28.5 L, RDW Std Deviation 46.0 H, RDW Coeff of Loki 15.6 H, Plt Count 352, MPV 9.8, Immature Gran % (Auto) 0.400, Neut % (Auto) 75.0 H, Lymph % (Auto) 12.3 L, Coffee % (Auto) 9.6, Eos % (Auto) 2.0, Baso % (Auto) 0.7, Absolute Neuts (auto) 5.3, Absolute Lymphs (auto) 0.87, Nucleated RBC % 0 10/09/20 14:13: PT 29.1 H, INR 2.8, APTT 35.5 10/09/20 14:13: Sodium 142, Potassium 3.6, Chloride 107, Carbon Dioxide 30.0, Anion Gap 5, BUN 17, Creatinine 1.00, Estim Creat Clear Calc 40.21, Est GFR (MDRD) Af Amer 69, Est GFR (MDRD) Non-Af 57 L, BUN/Creatinine Ratio 17.0, Glucose 80, Calcium 8.9, Total Bilirubin 0.30, AST 14 L, ALT 16, Alkaline Phosphatase 78, Troponin I < 0.015, Total Protein 6.6, Albumin 3.1 L, Globulin 3.5, Albumin/Globulin Ratio 0.9 10/09/20 14:13: Lactic Acid 1.0 10/09/20 15:06: Specimen Type ART, Sample Site L Radial, pH 7.43, Bicarbonate Actual 30.2 H, Total CO2 32, Base Excess 6 H, O2 Saturation 94 L, O2 % 21, ABG pCO2 45.2 H, ABG pO2 69 L, Rodrigo Test Positive, O2 Delivery Device Room Air 10/09/20 15:12: Urine Color Yellow, Urine Clarity Clear, Urine pH 6.0, Ur Specific [place] 1.010, Urine Protein Negative, Urine Glucose (UA) Normal, Urine Ketones Negative, Urine Occult Blood 10 H, Urine Nitrite Negative, Urine Bilirubin Negative, Urine Urobilinogen Normal, Ur Leukocyte Esterase 25 H, Urine RBC 0-5 SEEN, Urine WBC 0-5 SEEN, Ur Squamous Epith Cells 0-5 SEEN, Ur Transition Epith Cell 0-5 SEEN, Urine Bacteria 0 SEEN, Urine Mucus 0 SEEN Assessment/Plan All Active Problems (Last Reviewed 07/28/20 @ 14:27 by Joy Adame DENTAL HYGIENE ADMINISTRATIVE ASSISTANT, DENTAL HYGIENE ADMINISTRATIVE ASSISTANT-C) Encephalopathy acute (Acute) Bronchiectasis with acute exacerbation (Acute) Respiratory insufficiency (Acute) Cough (Acute) Chronic anticoagulation (Acute) Hemoptysis (Acute) Syncope and collapse (Resolved) The patient is a 74 y/o F w/ PMHx: Asthma, HTN, HLD, Dementia of recent onset without behavioral disturbance history, HERLINDA, Prediabetes mellitus type II, Anxiety and Depression, PAF, Chronic diastolic CHF, Valvular Heart Disease s/p AVR mechanical valve, Chronic sinusitis (reported MRSA, pseudomonas), GERD who presents to the [facility] ED on 10/09/20 with history of worsening cough over the last several days, noting she was vaccinationed for COVID 2 weeks prior with now worsening dyspnea and hallucinations (seeing people who are not there in her home) starting the evening prior, although historically having hallucinations since 02/2020 per report. 1. Acute Encephalopathy (complicated by chronic dementia with visual hallucinations) with dyspnea, cough secondary to ? Community Acquired (lower suspicion)/ ? Aspiration Pneumonia (Lower suspicion, suspect chronic aspiration component), possibly #2: Will admit to PCU given #2 possibility, maintain on oxygen with wean as tolerated to home oxygen supplementation, continue ATC duonebs, PRN albuterol, maintained on IV zosyn given suspected aspiration potential component pending procalcitonin, if unremarkable given lower suspicion (poor film with poor inspiratory effort) would discontinue, HOB, IS parameters w/ pending sputum cultures, respiratory viral panel and urine antigens. Speech therapy consulted. 2. ? Acute on Chronic diastolic CHF: We will continue patient home aspirin, Coumadin with INR trending, statin, metoprolol, not on ARIADNA inhibitor or ARB, diurese with IV lasix regimen x 1 and plan repeat CXR in AM given ? #1 also as noted, recent ECHO 05/20/20 w/ normal LV systolic function, EF 65%, sigmoid septum, mild enlarged LA, moderate to severe and mitral annular calcification, trivial MVI, trivial TVI, stable appearing mechanical aortic valve apparatus, mild aortic stenosis, trivial transvalvular insufficiency of the aortic valve, trivial PVI, RVSP 24 mmHg, transmitral diastolic velocity suggestive of diastolic dysfunction. 3. Anxiety and depression: We will continue patient home paroxetine as well Wellbutrin regimen. Given only PRN ativan will hold given presentation. From discussions with and patient she was supposed to wean slowly off the paroxetine as outpatient evaluation for her Hallucinations and dementia recommended transition to alternate agent; however, she has successfully stopped after wean but then recently of her own volition started taking the medication again. Spoke to and recommended her medications not be at her control given dementia history. May be contributing to repeat increased visual hallucinations. 4. Chronic Asthma: Will maintain on oxygen with wean as tolerated to room air, hold home inhalers, will maintain on budesonside ATC duonebs, PRN albuterol, HOB, IS parameters. 5. PAF: We will continue patient home regimen amiodarone, metoprolol as well as Coumadin with INR trending. 6. Dementia, recent onset without behavioral disturbance history: Complicates presentation, especially given history of possible hallucinations/delirium, will maintain on fall precautions, therapy and case management consulted for discharge planning. Patient with ongoing hallucinations since February 2020. Family concerned and noted some outpatient evaluations. Will need to assure continued aggressive outpatient evaluation plan and may consider further imaging additionally. 7. Hypertension: Continue home regimen including Lasix, metoprolol with hold parameters as needed, PRN hydralazine. 8. Hyperlipidemia: Continue home statin regimen. 9. Chronic sinusitis: CT head as noted with worsening parasinus disease, noted prior Hx MRSA and pseudomonas, no marked WBC elevation or shift, especially given CXR as noted, encourage continued ENT follow-up/PCP follow-up as needed. 10. Valvular heart disease: Patient status post AVR x2, most recently with mechanical valve, continue Coumadin with INR trending as noted. 11. Chronic Kidney Disease Stage III: Admission BUN/Cr 17/1.0, baseline renal function 0.9-1.3, repeat BMP in AM. 12. Chronic normocytic anemia: Admission hemoglobin 10.1, prior baseline noted to be 10-11, stable, trend. 13. GERD: Will continue home PPI regimen. 14. DVT prophylaxis: SCDs, continue Coumadin with INR trending. 15. CODE status: Patient HCPOA is her who is present and living will is in place but he notes having misplaced it in their home. Noted they may discuss living will with CM/SW if amenable given unclear placement of this document. Discussed CODE status at length including difference between FULL code, DNR-CCA and DNR-CC status. Following discussions about the differences in these status, requested DNR-CCA, no intubation. Advanced Care Planning Face to Face Time: 16 minutes. OBSV E&M: 16268 Initial observation care L3 Procedures: 73506 Advncd Care Plan 30 Min
--- NOTE | 2020-10-09 16:29 | NURSING ---
PCU WHITE HALLUCINATIONS
[2020-10-09 17:27] LABS: Magnesium 1.9 mg/dL (1.6-2.6)
[2020-10-09 17:52] LABS: Procalcitonin < 0.04 ng/mL (0.00-0.09)
[2020-10-09] MEDS: 0.9% Saline Lock 10 ML Syringe IV ×2 (18:07→18:09)
[2020-10-09] MEDS: Furosemide 40 MG/4 ML Vial IV (18:07)
[2020-10-09] MEDS: Budesonide Respules 0.5 MG/2 ML AMPUL.NEB. INHALATION (18:48)
[2020-10-09] MEDS: Acetaminophen 325 MG Tablet 650 MG PO (20:15)
[2020-10-09 21:32] LABS: M R Staph aureus DNA By PCR Negative (Negative); Probe Check PASS; Specimen Processing Control PASS
[2020-10-09] MEDS: LORazepam 0.5 MG Tablet PO (21:36)
[2020-10-09] MEDS: Pantoprazole Sodium 40 MG Tablet PO (21:36)
[2020-10-09] MEDS: Montelukast 10 MG Tablet PO (21:38)
[2020-10-09] MEDS: Pravastatin 80 MG Tablet PO (21:39)
[2020-10-10 04:00] VITALS: PULSE 59
--- NOTE | 2020-10-10 04:58 | RAD_ITS ---
STUDY: X-RAY CHEST REASON FOR EXAM: Female, 74 years old. Dyspnea, cough TECHNIQUE: Single AP portable view of the chest. COMPARISON: 10/09/2020 FINDINGS: Status post median sternotomy. The lungs are clear and expanded. Elevated right hemidiaphragm which is unchanged. There is moderate cardiac enlargement. Normal mediastinum and chica. Normal visualized pulmonary arteries. Normal visualized aortic arch and descending thoracic aorta. Normal visualized thoracic spine. Normal visualized ribs, clavicles, and shoulders. There is no demonstrated abnormality of the visualized soft tissue structures of the upper abdomen. RAD/Chest 1 View (Portable) IMPRESSION: No active disease. Electronically Signed: Andre Quispe MD at 8:02 EDT Tel , Service support ,
[2020-10-10 05:00] VITALS: BP 131/66; PULSE 60; RESP 17; TEMP 37; O2SAT 97
[2020-10-10 06:50] LABS: Absolute Lymphocyte Count 0.82 X10^3/uL (0.83-4.51); Absolute Neutrophil Count 3.8 X10^3/uL (2.0-7.7); Basophil# 0.05 X10^3/uL; Basophil% 0.9 % (0-1); Eosinophil# 0.18 X10^3/uL; Eosinophils% 3.3 % (0-5); Hematocrit 35.3 % (37-47); Hemoglobin 9.9 g/dL (12.0-15.0); Lymphocyte # 0.82 X10^3/ul (4.0); Mean Corpuscular Volume 82.1 fL (81-99); Mean Platelet Vol. 10.6 fl (6.2-12.0); Monocyte# 0.57 X10^3/uL; Monocyte% 10.4 % (0-10); NRBC Flagged by Analyzer 0 % (0-5); Neutrophil # 3.83 X10^3/uL (2.7-7.7); Platelet Count 331 K/mm3 (150-450); RBC Distribution Width CV 15.5 % (11.6-14.6); RBC Distribution Width SD 46.3 fl (35.1-43.9); White Blood Count 5.5 K/mm3 (4.4-11.0)
[2020-10-10 07:00] VITALS: PULSE 58
[2020-10-10 07:04] LABS: International Normalized Ratio 2.8
[2020-10-10 07:16] VITALS: PULSE 75; RESP 16; O2SAT 96
[2020-10-10] MEDS: Budesonide Respules 0.5 MG/2 ML AMPUL.NEB. INHALATION (07:16)
[2020-10-10 07:34] LABS: ALB/GLOB Ratio 0.8 RATIO (0.9-2.4); AST(SGOT) 14 U/L (15-37); Alanine Aminotransfer ALT/SGPT 15 U/L (13-56); Albumin, Serum 2.8 g/dL (3.2-5.0); Alkaline Phosphatase 73 U/L (45-117); Anion Gap 4 (5-15); BUN 14 mg/dL (7-18); BUN/Creat Ratio 13.5 RATIO (10-20); Calcium,Total 8.9 mg/dL (8.5-10.1); Chloride 107 mmol/L (98-107); Creatinine, Serum 1.04 mg/dL (0.55-1.02); EST Glomerular Filtration Rate 55 mL/min (>60); Est Glom Filt Rate - Afr Amer 66 mL/min (>60); Estimated Creatinine Clearance 38.66 ml/min; Globulin 3.3 g/dL (2.2-4.2); Glucose 81 mg/dL (74-106); Potassium 3.5 mmol/L (3.5-5.1); Protein, Total 6.1 g/dL (6.4-8.2); Sodium Level 142 mmol/L (136-145); T4 Free Direct 1.23 ng/dL (0.76-1.46); Thyroid Stim Hormone (TSH) 3.22 uIU/mL (0.358-3.74)
[2020-10-10 09:18] VITALS: BP 129/50; PULSE 72; RESP 16; TEMP 36.9; O2SAT 94
[2020-10-10] MEDS: Pantoprazole Sodium 40 MG Tablet PO (09:19)
[2020-10-10] MEDS: Furosemide 40 MG Tablet PO (09:20)
[2020-10-10] MEDS: Amiodarone 200 MG Tablet 100 MG PO (09:20)
[2020-10-10] MEDS: Ezetimibe 10 MG Tablet PO (09:20)
[2020-10-10] MEDS: Aspirin 81 MG TAB.CHEW 162 MG PO (09:20)
[2020-10-10 09:21] VITALS: BP 129/50; PULSE 72
[2020-10-10] MEDS: Metoprolol(XL)Succ 50 MG Tablet PO (09:21)
[2020-10-10] MEDS: buPROPion (XL) 150 MG TABLET.XL PO (09:22)
[2020-10-10] MEDS: Acetaminophen 325 MG Tablet 650 MG PO (11:04)
--- NOTE | 2020-10-10 11:54 | DCINST_ITS ---
- Discharge Diagnoses Current Active Problems: Current Active and Chronic Problems (Last Reviewed 07/28/20 @ 14:27 by Joy Adame [employer], [facility]-[facility]) Encephalopathy acute (Acute) PAF (paroxysmal atrial fibrillation) (Chronic) Visual hallucinations (Chronic) Unclear etiology, ongoing since 02/2020 per report, following outpatient with physician, recommended wean off paxil and change to alternate agent as start. Chronic diastolic heart failure (Chronic) HERLINDA (obstructive sleep apnea) (Chronic) History of mechanical aortic valve replacement (Chronic ~10/07/13) RLV-Qsbzsalmaw-Bouryd, 2003, Redo AVR 10/10 (#21 On-X mechanical valve) Essential hypertension (Chronic) Allergic rhinitis (Chronic) GERD (gastroesophageal reflux disease) (Chronic) Anxiety (Chronic) Atherosclerotic heart disease of [place] coronary artery without angina pectoris (Chronic) Mild Hyperlipidemia (Chronic) Obesity (Chronic) Asthma (Chronic) Chronic sinusitis (Chronic) H/O Pseudomonas, MRSA You will use the following diet at home:: Cardiac Discharge Activity: Return to Normal Activity Call your doctor if you observe: Fever of 101 or Higher, Shortness of breath, Dizziness, Fainting spells, Chest pain Allergies/Adverse Reactions: Allergies donepezil Allergy (Severe, Verified 10/09/20 13:42) shortness of breath Sulfa (Sulfonamide Antibiotics) Allergy (Verified 10/09/20 13:42) Swelling celecoxib [From Celebrex] Adverse Reaction (Severe, Verified 10/09/20 13:42) Swelling dextromethorphan [From Delsym] Adverse Reaction (Severe, Verified 10/09/20 13:42) hallucination adhesive Adverse Reaction (Verified 10/09/20 13:42) blisters BLISTERS codeine Adverse Reaction (Verified 10/09/20 13:42) Itching levofloxacin [From Levaquin] Adverse Reaction (Verified 10/09/20 13:42) pain in legs and swelling PAIN IN LEG AND SWELLING lisinopril Adverse Reaction (Verified 10/09/20 13:42) cough oxycodone [Oxycodone] Adverse Reaction (Verified 10/09/20 13:42) Itching oxycodone HCl [From Percocet] Adverse Reaction (Verified 10/09/20 13:42) Itching AND MAKES HEAD FEEL FUNNY Penicillins Adverse Reaction (Verified 10/09/20 13:42) heart palpitations HEART PALPITATIONS prochlorperazine edisylate [From Compazine] Adverse Reaction (Verified 10/09/20 13:42) Low blood pressure prochlorperazine maleate [From Compazine] Adverse Reaction (Verified 10/09/20 13:42) Low blood pressure tramadol HCl [From [facility]] Adverse Reaction (Verified 10/09/20 13:42) Itching Medications to take at Discharge Pantoprazole Sodium [Protonix] 40 mg PO BID 01/14/15 buPROPion XL [Wellbutrin Xl] 150 mg PO DAILY 11/15/15 Montelukast [Singulair] 10 mg PO QHS 05/03/17 Potassium Chloride Oral Tablet [K-Dur] 20 meq PO DAILY 05/03/17 aspirin 81 mg chewable tablet 162 mg PO DAILY tab 09/04/17 lorazepam 0.5 mg tablet 0.5 mg PO BID PRN 09/04/17 Furosemide [Lasix] 40 mg PO DAILY #0 12/06/17 albuterol sulfate 2.5 mg INHALATION Q4H PRN 12/20/17 cholecalciferol (vitamin D3) 1,250 mcg (50,000 unit) capsule 50,000 unit PO FR 06/16/19 albuterol sulfate 90 mcg/actuation aerosol inhaler 2 puff INHALATION Q4H PRN #18 g 12/09/19 metoprolol succinate 50 mg tablet,extended release 24 hr 50 mg PO DAILY #90 tab 07/06/20 Acetaminophen [Tylenol Arthritis] 650 mg PO Q6H PRN 07/07/20 pravastatin 80 mg tablet 80 mg PO QHS #90 tab 07/27/20 amiodarone 200 mg tablet 100 mg PO DAILY #45 tab 08/02/20 budesonide-formoterol HFA 160 mcg-4.5 mcg/actuation aerosol inhaler 2 inh INHALATION BID #10.2 g 08/17/20 ezetimibe 10 mg tablet 10 mg PO DAILY #90 tab 09/20/20 Warfarin [Coumadin] 3 mg PO SUTUTHSA 09/30/20 Warfarin [Coumadin] 4.5 mg PO MOWEFR 09/30/20 Prednisone See Taper PO DAILY #30 tab 10/10/20 The following prescriptions were given: Prednisone See Taper PO DAILY #30 tab Transmission Status: Pending to [id number] Primary Care Physician: Harley Cornejo MD [Primary Care Provider] - Please follow up with your Primary Care Physician in: 1 Week Test Results: Test results from this visit will be discussed in further detail at your follow- up appointment, if applicable. Please Follow Up With: Joy Adame NP, [facility]-[facility] When: 2 Weeks Please Follow Up With: Rory Mckay MD When: As scheduled 11/08/20 Please Follow Up With: Neurology When: As scheduled Proposed Discharge Date: 10/10/20
--- NOTE | 2020-10-10 12:12 | DS.PCM_ITS ---
<Luisa Rothman CONDITIONER TENDER - Last Filed: 10/10/20 12:37> Discharge Date and Diagnosis - Problem List Patient Problems: Active and Suspected Problems (Last Reviewed 07/28/20 @ 14:27 by Joy Adame CONDITIONER TENDER, CONDITIONER TENDER-C) Encephalopathy acute (Acute) Date of Admission: 10/09/20 Date of Discharge: 10/10/20 - Primary Discharge Diagnosis Acute Problems: Active Problems (Last Reviewed 07/28/20 @ 14:27 by Joy Adame CONDITIONER TENDER, CONDITIONER TENDER-C) 1. Acute exacerbation of bronchiectasis 2. Acute encephalopathy, underlying dementia 3. Chronic diastolic CHF 4. Hypertension 5. Hyperlipidemia 6. History of aortic valve replacement, mechanical valve 7. Chronic kidney disease stage III 8. Paroxysmal atrial fibrillation 9. Chronic normocytic anemia 10. Anxiety/depression 11. GERD - Secondary Discharge Diagnosis Chronic Problems: Chronic Problems (Last Reviewed 07/28/20 @ 14:27 by Joy Adame CONDITIONER TENDER, CONDITIONER TENDER-C) PAF (paroxysmal atrial fibrillation) (Chronic) Visual hallucinations (Chronic) Unclear etiology, ongoing since 02/2020 per report, following outpatient with physician, recommended wean off paxil and change to alternate agent as start. Atrial fibrillation with rapid ventricular response (Chronic) Aneurysm, thoracic aortic (Chronic) Chronic diastolic heart failure (Chronic) HERLINDA (obstructive sleep apnea) (Chronic) Pseudomonas respiratory infection (Chronic) History of recurrent pseudomonal infections in the past Bronchiectasis (Chronic) History of mechanical aortic valve replacement (Chronic ~10/07/13) [id number], 2003, Redo AVR 10/10 (#21 On-X mechanical valve) Essential hypertension (Chronic) Allergic rhinitis (Chronic) GERD (gastroesophageal reflux disease) (Chronic) Hypoxemia (Chronic) Anxiety (Chronic) Atherosclerotic heart disease of [place] coronary artery without angina pectoris (Chronic) Mild Palpitations (Chronic) Nonspecific chest pain (Chronic) Aneurysm, thoracic aortic (Chronic) Nonrheumatic aortic valve regurgitation (Chronic) Fatigue (Chronic) Hyperlipidemia (Chronic) Obesity (Chronic) Asthma (Chronic) Chronic sinusitis (Chronic) H/O Pseudomonas, MRSA Hospital Course and Treatment Imaging Results: Diagnostic Data Brain CT 10/09/20 14:00 IMPRESSION: No acute intracranial hemorrhage or mass effect. Worsening paranasal sinus disease. Electronically Signed: Ben Aguila MD ([place]) at 14:52 EST , Service support , Chest X-Ray 10/10/20 04:58 IMPRESSION: No active disease. Electronically Signed: Andre Quispe MD at 8:02 EDT Tel , Service support , Operations: None Procedures: None Summary of Care Provided: The patient is a 74 year old F admitted 10/09/2020 due to shortness of breath, co ugh and hallucinations. 1. Acute exacerbation of bronchiectasis-patient reports cough and mild shortness of breath at baseline however recently worsened. States she has been using inhalers at home without improvement. Chest x-ray admission without acute process. Afebrile, no leukocytosis. Patient received IV Lasix x1. Oxygen stable on room air. Sputum culture growing Pseudomonas which has also been present in several other sputum cultures. Suspect colonization. Discharged on prednisone taper. No indication for antibiotics at this time. Follow-up with PCP in 1 week. Follow-up with pulmonary medicine in 2 weeks. 2. Acute encephalopathy, underlying dementia-patient reports recent diagnosis. She has been following with neurology. She was supposed to taper Paxil and then discontinue and begin Seroquel due to ongoing hallucinations. Patient states she is refusing to take Seroquel due to side effects. She states she did wean herself off of Paxil however recently began taking it again since she is not going to take Seroquel. Recommend follow-up with neurology for further recommendations. Patient is alert and oriented during admission, suspect underlying dementia and patient managing her own medications contributing to admission altered mental status. 3. Chronic diastolic CHF-no evidence of acute exacerbation. Patient did receive 1 dose of IV Lasix. Echocardiogram April 2020 demonstrated an EF of 65%, stable appearing aortic valve, diastolic dysfunction. Continue home Lasix regimen. 4. Hypertension-stable, continue metoprolol, Lasix. 5. Hyperlipidemia- continue statin. 6. History of aortic valve replacement, mechanical valve-on anticoagulation with Coumadin. 7. Chronic kidney disease stage III-at baseline. 8. Paroxysmal atrial fibrillation-on amiodarone, metoprolol, Coumadin. 9. Chronic normocytic anemia-stable. 10. Anxiety/depression-continue home regimen, outpatient follow-up as noted above. 11. GERD-continue PPI. Patient seen and examined prior to discharge. Physical assessment as noted below. Patient is stable for discharge with follow up recommendations as noted above. This patient was seen by CHARLENE Bishop under the supervision of Dr. Canseco. Patient Problems: Active and Suspected Problems (Last Reviewed 07/28/20 @ 14:27 by Joy Adame NP, CONDITIONER TENDER-C) Encephalopathy acute (Acute) - Physical Exam Vitals/I&O's: Vital Signs Temp Pulse Resp BP Pulse Ox 98.4 F 72 16 129/50 H 94 10/10/20 09:18 10/10/20 09:21 10/10/20 09:18 10/10/20 09:21 10/10/20 09:18 Oxygen Flow Rate (L/min) 2 Oxygen Delivery Method Room Air Weight: 162 lb 14.746 oz Body Mass Index (BMI) 29.2 Finger Stick Blood Glucose 93 Intake and Output for Last 24 Hours 10/08/20 10/09/20 10/11/20 23:59 23:59 00:59 Intake Total 540 / 540 410 / 410 Balance 540 / 540 410 / 410 General: Alert, Oriented x3, Cooperative HEENT: Atraumatic, PERRLA, EOMI, Normocephalic Neck: Supple, No JVD, Negative Carotid Bruits Lungs: Clear to auscultation, Diminished Cardiovascular: Regular rate, No murmurs Abdomen: Bowel Sounds Present, Soft, Non Tender, Non-Distended Extremities: No clubbing, No cyanosis, No edema, Capillary Refill Less than 3 Seconds Skin: No rashes, No breakdown Musculoskeletal: No Tenderness to Palpation of Joints or Extremities Neurological: Cranial nerves II-XII grossly intact, Neuro grossly intact Psych/Mental Status: Normal Affect, Appropriate Microbiology Past 72 Hours 10/09/20 20:30 Sputum, Expectorated/Coughed Gram Stain - Final 10/09/20 20:30 Sputum, Expectorated/Coughed Respiratory Culture - Preliminary GNR Poss Pseudomonas sp 10/09/20 18:46 Mucosa - Nasopharyngeal Respiratory Panel (PCR) - Final 10/09/20 15:12 Urine, Clean Catch Legionella Antigen - Final 10/09/20 15:12 Urine, Clean Catch Streptococcus pneumoniae Antigen (M - Final 10/09/20 14:16 Mucosa - Nose SARS-CoV-2 Antigen (Rapid) - Final Laboratory Results 10/09/20 14:13: WBC 7.1, RBC 4.38, Hgb 10.1 L, Hct 35.5 L, MCV 81.1, MCH 23.1 L, MCHC 28.5 L, RDW Std Deviation 46.0 H, RDW Coeff of Loki 15.6 H, Plt Count 352, MPV 9.8, Immature Gran % (Auto) 0.400, Neut % (Auto) 75.0 H, Lymph % (Auto) 12.3 L, Murray % (Auto) 9.6, Eos % (Auto) 2.0, Baso % (Auto) 0.7, Absolute Neuts (auto) 5.3, Absolute Lymphs (auto) 0.87, Nucleated RBC % 0 10/09/20 14:13: PT 29.1 H, INR 2.8, APTT 35.5 10/09/20 14:13: Sodium 142, Potassium 3.6, Chloride 107, Carbon Dioxide 30.0, An ion Gap 5, BUN 17, Creatinine 1.00, Estim Creat Clear Calc 40.21, Est GFR (MDRD) Af Amer 69, Est GFR (MDRD) Non-Af 57 L, BUN/Creatinine Ratio 17.0, Glucose 80, Calcium 8.9, Total Bilirubin 0.30, AST 14 L, ALT 16, Alkaline Phosphatase 78, Troponin I < 0.015, Total Protein 6.6, Albumin 3.1 L, Globulin 3.5, Albumin/Globulin Ratio 0.9 10/09/20 14:13: Lactic Acid 1.0 10/09/20 14:13: Magnesium 1.9 10/09/20 14:13: Procalcitonin < 0.04 10/09/20 15:06: Specimen Type ART, Sample Site L Radial, pH 7.43, Bicarbonate Actual 30.2 H, Total CO2 32, Base Excess 6 H, O2 Saturation 94 L, O2 % 21, ABG pCO2 45.2 H, ABG pO2 69 L, Rodrigo Test Positive, O2 Delivery Device Room Air 10/09/20 15:12: Urine Color Yellow, Urine Clarity Clear, Urine pH 6.0, Ur Specific [place] 1.010, Urine Protein Negative, Urine Glucose (UA) Normal, Urine Ketones Negative, Urine Occult Blood 10 H, Urine Nitrite Negative, Urine Bilirubin Negative, Urine Urobilinogen Normal, Ur Leukocyte Esterase 25 H, Urine RBC 0-5 SEEN, Urine WBC 0-5 SEEN, Ur Squamous Epith Cells 0-5 SEEN, Ur Transition Epith Cell 0-5 SEEN, Urine Bacteria 0 SEEN, Urine Mucus 0 SEEN 10/09/20 17:30: MRSA (PCR) Negative 10/09/20 17:59: Troponin I < 0.015 10/09/20 20:35: Troponin I < 0.015 10/10/20 06:08: WBC 5.5, RBC 4.30, Hgb 9.9 L, Hct 35.3 L, MCV 82.1, MCH 23.0 L, MCHC 28.0 L, RDW Std Deviation 46.3 H, RDW Coeff of Loki 15.5 H, Plt Count 331, MPV 10.6, Immature Gran % (Auto) 0.400, Neut % (Auto) 70.0, Lymph % (Auto) 15.0 L, Murray % (Auto) 10.4 H, Eos % (Auto) 3.3, Baso % (Auto) 0.9, Absolute Neuts (auto) 3.8, Absolute Lymphs (auto) 0.82 L, Nucleated RBC % 0 10/10/20 06:08: PT 29.0 H, INR 2.8 10/10/20 06:08: Sodium 142, Potassium 3.5, Chloride 107, Carbon Dioxide 31.0, Anion Gap 4 L, BUN 14, Creatinine 1.04 H, Estim Creat Clear Calc 38.66, Est GFR (MDRD) Af Amer 66, Est GFR (MDRD) Non-Af 55 L, BUN/Creatinine Ratio 13.5, Glucose 81, Calcium 8.9, Total Bilirubin 0.50, AST 14 L, ALT 15, Alkaline Phosphatase 73, Total Protein 6.1 L, Albumin 2.8 L, Globulin 3.3, Albumin/Globulin Ratio 0.8 L, TSH 3.22, Free T4 1.23 Current Medications Acetaminophen (Acetaminophen 325 Mg Tablet) 650 mg PO Q6H PRN PRN PRN Reason: Pain Score 1-10/Temp > 100.7 F Last Admin: 10/10/20 11:04 Dose: 650 mg Documented by: Al Hydroxide/Mg Hydroxide (Mag Hydrox/Al Hydrox/Simeth 30 Ml Udc) 30 ml PO Q6H PRN PRN PRN Reason: Gastric Burning Albuterol Sulfate (Albuterol 2.5 Mg/3 Ml Vial.Neb.) 2.5 mg INHALATION Q2H PRN PRN PRN Reason: Dyspnea, wheezing Amiodarone HCl (Amiodarone 200 Mg Tablet) 100 mg PO DAILY [facility] Last Admin: 10/10/20 09:20 Dose: 100 mg Documented by: Aspirin (Aspirin 81 Mg Tab.Chew) 162 mg PO DAILYCM [facility] Last Admin: 10/10/20 09:20 Dose: 162 mg Documented by: Budesonide (Budesonide Respules 0.5 Mg/2 Ml Ampul.Neb.) 0.5 mg INHALATION BID.RT [facility] Last Admin: 10/10/20 07:16 Dose: 0.5 mg Documented by: Bupropion HCl (Bupropion (Xl) 150 Mg Tablet.Xl) 150 mg PO DAILY [facility] Last Admin: 10/10/20 09:22 Dose: 150 mg Documented by: Calcium Carbonate (Calcium Carbonate 500 Mg Tablet) 500 mg PO Q4H PRN PRN PRN Reason: INDIGESTION Ezetimibe (Ezetimibe 10 Mg Tablet) 10 mg PO DAILY [facility] Last Admin: 10/10/20 09:20 Dose: 10 mg Documented by: Furosemide (Furosemide 40 Mg Tablet) 40 mg PO DAILY [facility] Last Admin: 10/10/20 09:20 Dose: 40 mg Documented by: Guaifenesin (Guaifenesin 10 Ml Udc (200mg/10ml)) 20 ml PO Q4H PRN PRN PRN Reason: COUGH Hydralazine HCl (Hydralazine 20 Mg/Ml Vial) 10 mg IV Q4H PRN PRN PRN Reason: SBP > 160 Piperacillin Sod/Tazobactam (Sod 3.375 gm/ Sodium Chloride) 50 mls @ 12.5 mls/hr IV Q8 [facility] Last Infusion: 10/10/20 09:16 Dose: Infused Documented by: Sodium Chloride () 250 mls @ 15 mls/hr IV .[id number] PRN PRN Reason: Saline Flush Sodium Chloride () 250 mls @ 15 mls/hr IV .[id number] PRN PRN Reason: Additional IVPB Infusion Lorazepam (Lorazepam 0.5 Mg Tablet) 0.5 mg PO BID PRN PRN PRN Reason: ANXIETY Last Admin: 10/09/20 21:36 Dose: 0.5 mg Documented by: Magnesium Hydroxide (Magnesium Hydroxide 30 Ml Udc) 30 ml PO DAILY PRN PRN PRN Reason: Constipation Melatonin (Melatonin 3 Mg Tablet) 3 mg PO QHS PRN PRN PRN Reason: INSOMNIA Metoprolol Succinate (Metoprolol(Xl)Succ 50 Mg Tablet) 50 mg PO DAILY [facility] Last Admin: 10/10/20 09:21 Dose: 50 mg Documented by: Montelukast Sodium (Montelukast 10 Mg Tablet) 10 mg PO QHS [facility] Last Admin: 10/09/20 21:38 Dose: 10 mg Documented by: Nitroglycerin (Nitroglycerin (Inpatient Use) 0.4 Mg Tab.Subl) 0.4 mg SL Q5M PRN PRN Reason: CARDIAC/CHEST PAIN Ondansetron HCl (Ondansetron 4 Mg/2 Ml Vial) 4 mg IV Q8H PRN PRN PRN Reason: NAUSEA/VOMITING Pantoprazole Sodium (Pantoprazole Sodium 40 Mg Tablet) 40 mg PO BID [facility] Last Admin: 10/10/20 09:19 Dose: 40 mg Documented by: Paroxetine HCl (Paroxetine 20 Mg Tablet) 20 mg PO DAILY [facility] Last Admin: 10/10/20 09:24 Dose: Not Given Documented by: Potassium Chloride (Potassium [facility] 20 [facility] Pravastatin Sodium (Pravastatin 80 Mg Tablet) 80 mg PO QHS [facility] Last Admin: 10/09/20 21:39 Dose: 80 mg Documented by: Psyllium Hydrophilic Mucilloid (Psyllium 1 Packet) 1 packet PO DAILY PRN PRN PRN Reason: Constipation Senna/Docusate Sodium (Senna/Docusate Sodium 1 Tablet) 2 tablet PO BID PRN PRN PRN Reason: Constipation Sodium Chloride (0.9% Saline Lock 10 Ml Syringe) 10 - 40 ml IV UD PRN PRN Reason: SALINE FLUSH Last Admin: 10/09/20 18:09 Dose: 10 ml Documented by: Throat Lozenges (Benzocaine/Menthol 1 Lozenge) 1 lozenge MUCOUS MEM Q2H PRN PRN PRN Reason: SORE THROAT Warfarin Sodium (Warfarin 3 Mg Tablet) 3 mg PO [id number]@1700 [facility] Last Admin: 10/09/20 18:56 Dose: 3 mg Documented by: Warfarin Sodium (Warfarin 2.5 Mg Tablet) 2.5 mg PO MoWeFr@1700 [facility] Warfarin Sodium (Jantoven 2 Mg Tablet) 2 mg PO MoWeFr@1700 [facility] Discharge Diet: No Restrictions Discharge Activity: Return to Normal Activity Call your doctor if you observe: Fever of 101 or Higher, Shortness of breath, Dizziness, Fainting spells, Chest pain Home Medications: Medications to take at Discharge Pantoprazole Sodium [Protonix] 40 mg PO BID 01/14/15 buPROPion XL [Wellbutrin Xl] 150 mg PO DAILY 11/15/15 Montelukast [Singulair] 10 mg PO QHS 05/03/17 Potassium Chloride Oral Tablet [K-Dur] 20 meq PO DAILY 05/03/17 aspirin 81 mg chewable tablet 162 mg PO DAILY tab 09/04/17 lorazepam 0.5 mg tablet 0.5 mg PO BID PRN 09/04/17 Furosemide [Lasix] 40 mg PO DAILY #0 12/06/17 albuterol sulfate 2.5 mg INHALATION Q4H PRN 12/20/17 cholecalciferol (vitamin D3) 1,250 mcg (50,000 unit) capsule 50,000 unit PO FR 06/16/19 albuterol sulfate 90 mcg/actuation aerosol inhaler 2 puff INHALATION Q4H PRN #18 g 12/09/19 metoprolol succinate 50 mg tablet,extended release 24 hr 50 mg PO DAILY #90 tab 07/06/20 Acetaminophen [Tylenol Arthritis] 650 mg PO Q6H PRN 07/07/20 pravastatin 80 mg tablet 80 mg PO QHS #90 tab 07/27/20 amiodarone 200 mg tablet 100 mg PO DAILY #45 tab 08/02/20 budesonide-formoterol HFA 160 mcg-4.5 mcg/actuation aerosol inhaler 2 inh INHALATION BID #10.2 g 08/17/20 ezetimibe 10 mg tablet 10 mg PO DAILY #90 tab 09/20/20 Warfarin [Coumadin] 3 mg PO SUTUTHSA 09/30/20 Warfarin [Coumadin] 4.5 mg PO MOWEFR 09/30/20 Prednisone See Taper PO DAILY #30 tab 10/10/20 Following Prescriptions Were Given to Patient: Prednisone See Taper PO DAILY #30 tab Transmission Status: Received by [id number] Primary Care Physician: Harley Cornejo MD [Primary Care Provider] - Please follow up with your Primary Care Physician in: 1 Week Please Follow Up With: Joy Adame NP, CONDITIONER TENDER-C When: 2 Weeks Please Follow Up With: Rory Mckay MD When: As scheduled 11/08/20 Please Follow Up With: Neurology When: As scheduled Disposition: Home Minutes spent on discharge:: 35 Patient Condition:: Stable Medical Necessity - Tobacco Use Smoking Status: Never smoker Tobacco Use: Non-smoker Meaningful Use Info Meaningful Use Diagnoses (Choose all that apply): None applicable <Ryan Canseco - Last Filed: 10/10/20 12:54> Discharge Date and Diagnosis - Primary Discharge Diagnosis Acute Problems: Active Problems (Last Reviewed 07/28/20 @ 14:27 by Joy Adame CONDITIONER TENDER, CONDITIONER TENDER-C) Encephalopathy acute (Acute) - Secondary Discharge Diagnosis Chronic Problems: Chronic Problems (Last Reviewed 07/28/20 @ 14:27 by Joy Adame CONDITIONER TENDER, CONDITIONER TENDER-C) PAF (paroxysmal atrial fibrillation) (Chronic) Visual hallucinations (Chronic) Unclear etiology, ongoing since 02/2020 per report, following outpatient with physician, recommended wean off paxil and change to alternate agent as start. Atrial fibrillation with rapid ventricular response (Chronic) Aneurysm, thoracic aortic (Chronic) Chronic diastolic heart failure (Chronic) HERLINDA (obstructive sleep apnea) (Chronic) Pseudomonas respiratory infection (Chronic) History of recurrent pseudomonal infections in the past Bronchiectasis (Chronic) History of mechanical aortic valve replacement (Chronic ~10/07/13) [id number]-Zyhlts, 2003, Redo AVR 10/10 (#21 On-X mechanical valve) Essential hypertension (Chronic) Allergic rhinitis (Chronic) GERD (gastroesophageal reflux disease) (Chronic) Hypoxemia (Chronic) Anxiety (Chronic) Atherosclerotic heart disease of [place] coronary artery without angina pectoris (Chronic) Mild Palpitations (Chronic) Nonspecific chest pain (Chronic) Aneurysm, thoracic aortic (Chronic) Nonrheumatic aortic valve regurgitation (Chronic) Fatigue (Chronic) Hyperlipidemia (Chronic) Obesity (Chronic) Asthma (Chronic) Chronic sinusitis (Chronic) H/O Pseudomonas, MRSA Hospital Course and Treatment Imaging Results: 10/10/20 04:58 Chest 1 View (Portable) [RAD] AM (NON MEDS) Summary of Care Provided: This patient was seen in conjunction with CHARLENE Bishop . I have independently interviewed and examined the patient and reviewed pertinent historical, laboratory, and other data. Please refer to CHARLENE Bishop note for details of this patient's presentation, findings, and recommendations. I have reviewed CHARLENE Bishop note and concur with documented findings. In brief, patient 74-year-old lady admitted with shortness of breath and altered mental status admitted to monitored bed for subsequent evaluation Hospital course: As documented above - Physical Exam Vitals/I&O's: Vital Signs Temp Pulse Resp BP Pulse Ox 98.4 F 72 16 129/50 H 94 10/10/20 09:18 10/10/20 09:21 10/10/20 09:18 10/10/20 09:21 10/10/20 09:18 Oxygen Flow Rate (L/min) 2 Oxygen Delivery Method Room Air Weight: 73.9 kg Body Mass Index (BMI) 29.2 Finger Stick Blood Glucose 93 Intake and Output for Last 24 Hours 10/08/20 10/09/20 10/11/20 23:59 23:59 00:59 Intake Total 540 / 540 410 / 410 Balance 540 / 540 410 / 410 Microbiology Past 72 Hours 10/09/20 20:30 Sputum, Expectorated/Coughed Gram Stain - Final 10/09/20 20:30 Sputum, Expectorated/Coughed Respiratory Culture - Preliminary GNR Poss Pseudomonas sp 10/09/20 18:46 Mucosa - Nasopharyngeal Respiratory Panel (PCR) - Final 10/09/20 15:12 Urine, Clean Catch Legionella Antigen - Final 10/09/20 15:12 Urine, Clean Catch Streptococcus pneumoniae Antigen (M - Final 10/09/20 14:16 Mucosa - Nose SARS-CoV-2 Antigen (Rapid) - Final Laboratory Results 10/09/20 14:13: WBC 7.1, RBC 4.38, Hgb 10.1 L, Hct 35.5 L, MCV 81.1, MCH 23.1 L, MCHC 28.5 L, RDW Std Deviation 46.0 H, RDW Coeff of Loki 15.6 H, Plt Count 352, MPV 9.8, Immature Gran % (Auto) 0.400, Neut % (Auto) 75.0 H, Lymph % (Auto) 12.3 L, Murray % (Auto) 9.6, Eos % (Auto) 2.0, Baso % (Auto) 0.7, Absolute Neuts (auto) 5.3, Absolute Lymphs (auto) 0.87, Nucleated RBC % 0 10/09/20 14:13: PT 29.1 H, INR 2.8, APTT 35.5 10/09/20 14:13: Sodium 142, Potassium 3.6, Chloride 107, Carbon Dioxide 30.0, Anion Gap 5, BUN 17, Creatinine 1.00, Estim Creat Clear Calc 40.21, Est GFR (MDRD) Af Amer 69, Est GFR (MDRD) Non-Af 57 L, BUN/Creatinine Ratio 17.0, Glucose 80, Calcium 8.9, Total Bilirubin 0.30, AST 14 L, ALT 16, Alkaline Phosphatase 78, Troponin I < 0.015, Total Protein 6.6, Albumin 3.1 L, Globulin 3.5, Albumin/Globulin Ratio 0.9 10/09/20 14:13: Lactic Acid 1.0 10/09/20 14:13: Magnesium 1.9 10/09/20 14:13: Procalcitonin < 0.04 10/09/20 15:06: Specimen Type ART, Sample Site L Radial, pH 7.43, Bicarbonate Actual 30.2 H, Total CO2 32, Base Excess 6 H, O2 Saturation 94 L, O2 % 21, ABG pCO2 45.2 H, ABG pO2 69 L, Rodrigo Test Positive, O2 Delivery Device Room Air 10/09/20 15:12: Urine Color Yellow, Urine Clarity Clear, Urine pH 6.0, Ur Specific [place] 1.010, Urine Protein Negative, Urine Glucose (UA) Normal, Urine Ketones Negative, Urine Occult Blood 10 H, Urine Nitrite Negative, Urine Bilirubin Negative, Urine Urobilinogen Normal, Ur Leukocyte Esterase 25 H, Urine RBC 0-5 SEEN, Urine WBC 0-5 SEEN, Ur Squamous Epith Cells 0-5 SEEN, Ur Transition Epith Cell 0-5 SEEN, Urine Bacteria 0 SEEN, Urine Mucus 0 SEEN 10/09/20 17:30: MRSA (PCR) Negative 10/09/20 17:59: Troponin I < 0.015 10/09/20 20:35: Troponin I < 0.015 10/10/20 06:08: WBC 5.5, RBC 4.30, Hgb 9.9 L, Hct 35.3 L, MCV 82.1, MCH 23.0 L, MCHC 28.0 L, RDW Std Deviation 46.3 H, RDW Coeff of Loki 15.5 H, Plt Count 331, MPV 10.6, Immature Gran % (Auto) 0.400, Neut % (Auto) 70.0, Lymph % (Auto) 15.0 L, Murray % (Auto) 10.4 H, Eos % (Auto) 3.3, Baso % (Auto) 0.9, Absolute Neuts (auto) 3.8, Absolute Lymphs (auto) 0.82 L, Nucleated RBC % 0 10/10/20 06:08: PT 29.0 H, INR 2.8 10/10/20 06:08: Sodium 142, Potassium 3.5, Chloride 107, Carbon Dioxide 31.0, Anion Gap 4 L, BUN 14, Creatinine 1.04 H, Estim Creat Clear Calc 38.66, Est GFR (MDRD) Af Amer 66, Est GFR (MDRD) Non-Af 55 L, BUN/Creatinine Ratio 13.5, Glucose 81, Calcium 8.9, Total Bilirubin 0.50, AST 14 L, ALT 15, Alkaline Phosphatase 73, Total Protein 6.1 L, Albumin 2.8 L, Globulin 3.3, Albumin/Globulin Ratio 0.8 L, TSH 3.22, Free T4 1.23 Current Medications Acetaminophen (Acetaminophen 325 Mg Tablet) 650 mg PO Q6H PRN PRN PRN Reason: Pain Score 1-10/Temp > 100.7 F Last Admin: 10/10/20 11:04 Dose: 650 mg Documented by: Al Hydroxide/Mg Hydroxide (Mag Hydrox/Al Hydrox/Simeth 30 Ml Udc) 30 ml PO Q6H PRN PRN PRN Reason: Gastric Burning Albuterol Sulfate (Albuterol 2.5 Mg/3 Ml Vial.Neb.) 2.5 mg INHALATION Q2H PRN PRN PRN Reason: Dyspnea, wheezing Amiodarone HCl (Amiodarone 200 Mg Tablet) 100 mg PO DAILY [facility] Last Admin: 10/10/20 09:20 Dose: 100 mg Documented by: Aspirin (Aspirin 81 Mg Tab.Chew) 162 mg PO DAILYCM [facility] Last Admin: 10/10/20 09:20 Dose: 162 mg Documented by: Budesonide (Budesonide Respules 0.5 Mg/2 Ml Ampul.Neb.) 0.5 mg INHALATION BID.RT [facility] Last Admin: 10/10/20 07:16 Dose: 0.5 mg Documented by: Bupropion HCl (Bupropion (Xl) 150 Mg Tablet.Xl) 150 mg PO DAILY [facility] Last Admin: 10/10/20 09:22 Dose: 150 mg Documented by: Calcium Carbonate (Calcium Carbonate 500 Mg Tablet) 500 mg PO Q4H PRN PRN PRN Reason: INDIGESTION Ezetimibe (Ezetimibe 10 Mg Tablet) 10 mg PO DAILY [facility] Last Admin: 10/10/20 09:20 Dose: 10 mg Documented by: Furosemide (Furosemide 40 Mg Tablet) 40 mg PO DAILY [facility] Last Admin: 10/10/20 09:20 Dose: 40 mg Documented by: Guaifenesin (Guaifenesin 10 Ml Udc (200mg/10ml)) 20 ml PO Q4H PRN PRN PRN Reason: COUGH Hydralazine HCl (Hydralazine 20 Mg/Ml Vial) 10 mg IV Q4H PRN PRN PRN Reason: SBP > 160 Piperacillin Sod/Tazobactam (Sod 3.375 gm/ Sodium Chloride) 50 mls @ 12.5 mls/hr IV Q8 [facility] Last Infusion: 10/10/20 09:16 Dose: Infused Documented by: Sodium Chloride () 250 mls @ 15 mls/hr IV .[id number] PRN PRN Reason: Saline Flush Sodium Chloride () 250 mls @ 15 mls/hr IV .[id number] PRN PRN Reason: Additional IVPB Infusion Lorazepam (Lorazepam 0.5 Mg Tablet) 0.5 mg PO BID PRN PRN PRN Reason: ANXIETY Last Admin: 10/09/20 21:36 Dose: 0.5 mg Documented by: Magnesium Hydroxide (Magnesium Hydroxide 30 Ml Udc) 30 ml PO DAILY PRN PRN PRN Reason: Constipation Melatonin (Melatonin 3 Mg Tablet) 3 mg PO QHS PRN PRN PRN Reason: INSOMNIA Metoprolol Succinate (Metoprolol(Xl)Succ 50 Mg Tablet) 50 mg PO DAILY [facility] Last Admin: 10/10/20 09:21 Dose: 50 mg Documented by: Montelukast Sodium (Montelukast 10 Mg Tablet) 10 mg PO QHS [facility] Last Admin: 10/09/20 21:38 Dose: 10 mg Documented by: Nitroglycerin (Nitroglycerin (Inpatient Use) 0.4 Mg Tab.Subl) 0.4 mg SL Q5M PRN PRN Reason: CARDIAC/CHEST PAIN Ondansetron HCl (Ondansetron 4 Mg/2 Ml Vial) 4 mg IV Q8H PRN PRN PRN Reason: NAUSEA/VOMITING Pantoprazole Sodium (Pantoprazole Sodium 40 Mg Tablet) 40 mg PO BID [facility] Last Admin: 10/10/20 09:19 Dose: 40 mg Documented by: Paroxetine HCl (Paroxetine 20 Mg Tablet) 20 mg PO DAILY [facility] Last Admin: 10/10/20 09:24 Dose: Not Given Documented by: Potassium Chloride (Potassium Chloride [facility] Tablet 20 M[facility] Pravastatin Sodium (Pravastatin 80 Mg Tablet) 80 mg PO QHS [facility] Last Admin: 10/09/20 21:39 Dose: 80 mg Documented by: Psyllium Hydrophilic Mucilloid (Psyllium 1 Packet) 1 packet PO DAILY PRN PRN PRN Reason: Constipation Senna/Docusate Sodium (Senna/Docusate Sodium 1 Tablet) 2 tablet PO BID PRN PRN PRN Reason: Constipation Sodium Chloride (0.9% Saline Lock 10 Ml Syringe) 10 - 40 ml IV UD PRN PRN Reason: SALINE FLUSH Last Admin: 10/09/20 18:09 Dose: 10 ml Documented by: Throat Lozenges (Benzocaine/Menthol 1 Lozenge) 1 lozenge MUCOUS MEM Q2H PRN PRN PRN Reason: SORE THROAT Warfarin Sodium (Warfarin 3 Mg Tablet) 3 mg PO SuTuThSa@1700 [facility] Last Admin: 10/09/20 18:56 Dose: 3 mg Documented by: Warfarin Sodium (Warfarin 2.5 Mg Tablet) 2.5 mg PO MoWeFr@1700 [facility] Warfarin Sodium (Jantoven 2 Mg Tablet) 2 mg PO MoWeFr@1700 [facility] OBSV E&M: [id number] Observation care discharge
== END 2020-10-10 11:54 | disposition home or self-care (01) ==
LOC: ED 14:16 → PCU 16:48
PROVIDERS: Admitting Provider Family Medicine; Emergency Provider Emergency Medicine; PCP Family Medicine; Visit Provider Internal Medicine
DX: J47.1 Bronchiectasis with (acute) exacerbation (principal); F03.90 Unspecified dementia, unspecified severity, without behavioral disturbance, psychotic disturbance, mood disturbance, and anxiety; G93.40 Encephalopathy, unspecified; I13.0 Hypertensive heart and chronic kidney disease with heart failure and stage 1 through stage 4 chronic kidney disease, or unspecified chronic kidney disease; I50.33 Acute on chronic diastolic (congestive) heart failure; E78.5 Hyperlipidemia, unspecified; K21.9 Gastro-esophageal reflux disease without esophagitis; N18.30 Chronic kidney disease, stage 3 unspecified; I48.0 Paroxysmal atrial fibrillation; F41.9 Anxiety disorder, unspecified; F32.9 Major depressive disorder, single episode, unspecified; D64.9 Anemia, unspecified; E66.9 Obesity, unspecified; J45.909 Unspecified asthma, uncomplicated; J32.9 Chronic sinusitis, unspecified; G47.33 Obstructive sleep apnea (adult) (pediatric); R44.1 Visual hallucinations; I25.10 Atherosclerotic heart disease of native coronary artery without angina pectoris; Z79.899 Other long term (current) drug therapy; Z95.2 Presence of prosthetic heart valve; Z79.82 Long term (current) use of aspirin; Z79.01 Long term (current) use of anticoagulants; Z68.30 Body mass index [BMI] 30.0-30.9, adult
CPT/HCPCS: 36415; 36600; 70450; 71045; 80053; 81001; 82803; 83605; 83735; 84145; 84439; 84443; 84484; 85025; 85610; 85730; 87040; 87070; 87077; 87086; 87184; 87186; 87205; 87426; 87449; 87633; 87641; 93005; 94640; 96365; 96366; 96375; 99218; 99251; 99284; A4216; G0378; G0463; J0153; J1940

== ENCOUNTER → 2020-11-18 11:12 | Outpatient (CLI) | payer MEDICARE, OTHER, SELFPAY ==
[2020-11-11 10:47] VITALS: BMI 29.0
[2020-11-18 11:30] VITALS: PULSE 74; PULSE 87; PULSE 92; PULSE 94; PULSE 96; PULSE 97; PULSE 98; O2SAT 90; O2SAT 92; O2SAT 95; O2SAT 96
--- NOTE | 2020-11-19 13:22 | WT_ITS ---
PSN 6 Minute Walk Test - 6 Minute Walk Test 6 Minute Walk Test: 6 Minute Walk Test PSN:6-Minute Walk Test Start: 11/18/20 11:44 Freq: Status: Active Protocol: [id number] Document 11/18/20 11:30 [facility] (Rec: 11/18/20 11:49 [facility] [id number]) 6 Minute Walk Test Date Performed 11/18/20 Time Performed 11:30 Height 5 ft 3 in Weight: 169 lb Weight in Pounds 169.[address]: Dr Johnson Assistive device used: None Pre-test Oxygen Delivery Method Room Air Pulse Ox (%) 96 Pulse Rate (60-100 beats/min) 74 Dyspnea [place] Scale (0-10) 0 Exertion [place] Scale (6-20) 6 1st minute Oxygen Delivery Method Room Air Pulse Ox (%) 90 Pulse Rate (60-100 beats/min) 96 2nd minute Oxygen Delivery Method Room Air Pulse Ox (%) 90 Pulse Rate (60-100 beats/min) 98 3rd minute Oxygen Delivery Method Room Air Pulse Ox (%) 92 Pulse Rate (60-100 beats/min) 94 4th minute Oxygen Delivery Method Room Air Pulse Ox (%) 92 Pulse Rate (60-100 beats/min) 92 5th minute Oxygen Delivery Method Room Air Pulse Ox (%) 90 Pulse Rate (60-100 beats/min) 97 Dyspnea [place] Scale (0-10) 3 Exertion [place] Scale (6-20) 14 Number of Rests Taken 1 Reported Symptoms Increased Work of Breathing 6th minute Oxygen Delivery Method Room Air Pulse Ox (%) 95 Pulse Rate (60-100 beats/min) 87 Dyspnea [place] Scale (0-10) 2 Exertion [place] Scale (6-20) 14 Post-test Oxygen Delivery Method Room Air Pulse Ox (%) 96 Pulse Rate (60-100 beats/min) 74 Full Laps Walked 8 Partial Lap, Number of Tiles Walked 7 Total Distance Walked (ft) 479 - Interpretation Interpretation: The patient ambulated 479 feet over the course of 6 minutes beginning on room air without assistive devices or breaks. Pretesting oxygen saturation was noted to be 96% on room air. With ambulation, the abhay oxygen saturation was 90%. This testing indicated the presence of both impaired walk distance and significant exertional oxygen desaturation consistent with a pulmonary limitation to exercise tolerance. - Recommendations Recommendations: There is no indication for the use of supplemental oxygen at this time. However, close interval follow-up is recommended, given the degree of oxygen desaturation noted during the study.
== END ==
PROVIDERS: PCP Family Medicine; Referring Provider Internal Medicine Critical Care Medicine; Visit Provider Internal Medicine Critical Care Medicine
DX: J47.9 Bronchiectasis, uncomplicated (principal)
CPT/HCPCS: 94618

== ENCOUNTER 2020-11-20 15:56 | Emergency (ER) | payer MEDICARE, OTHER, SELFPAY ==
[2020-11-11 10:47] VITALS: BMI 29.0
[2020-11-20 15:58] VITALS: BP 189/162; PULSE 89; RESP 225; TEMP 36.5; O2SAT 94; BMI 28.3
--- NOTE | 2020-11-20 16:35 | CT_ITS ---
STUDY: CT BRAIN WITHOUT CONTRAST REASON FOR EXAM: Female, 74 years old. Weakness RADIATION DOSAGE (If Supplied By Facility): CTDIvol = ( 44.99 ) mGy, DLP = ( 796.11 ) mGycm TECHNIQUE: Transaxial CT imaging of the brain was performed without administration of intravenous contrast material. Individualized dose optimization techniques were used for this CT. COMPARISON: 10/09/2020 FINDINGS: Normal soft tissue structures. There is hyperostosis frontalis internus. There is mild cerebral atrophy with widening of the extra-axial spaces and ventricular dilatation. There are areas of decreased attenuation within the white matter tracts of the supratentorial brain, consistent with microvascular disease changes. Normal basal ganglia and thalami. Normal brainstem. Normal cerebellum. There is no intracranial hemorrhage. There are no findings of an acute ischemic infarction. There is persistent opacification of the paranasal sinuses consistent with pansinusitis. CT/Brain/Head without Contrast IMPRESSION: Chronic involutional changes of the brain. Small vessel ischemia. Pansinusitis. Electronically Signed: Juanita Stack MD at 18:06 EDT Tel , Service support ,
--- NOTE | 2020-11-20 16:35 | EKG12_ITS ---
Test Reason : LE Blood Pressure : / mmHG Vent. Rate : 067 BPM Atrial Rate : 067 BPM P-R Int : 000 ms QRS Dur : 086 ms QT Int : 442 ms P-R-T Axes : 000 015 057 degrees QTc Int : 467 ms Normal sinus rhythm vs Ectopic Atrial Rhythm Abnormal ECG Confirmed by LATOYA MAC, IRIS ([id number]), makeup editor BOBBY CARIAS ([id number]) on 11/24/2020 8:31:42 AM Referred By: LUZ Confirmed By:IRIS KLEIN MD
[2020-11-20 16:56] VITALS: BP 148/70; PULSE 69; RESP 13; O2SAT 95
[2020-11-20 17:05] LABS: Absolute Lymphocyte Count 1.04 X10^3/uL (0.83-4.51); Absolute Neutrophil Count 6.5 X10^3/uL (2.0-7.7); Basophil# 0.06 X10^3/uL; Basophil% 0.7 % (0-1); Eosinophil# 0.11 X10^3/uL; Eosinophils% 1.3 % (0-5); Hematocrit 35.8 % (37-47); Hemoglobin 9.9 g/dL (12.0-15.0); Lymphocyte # 1.04 X10^3/ul (0.83-4.51); Lymphocyte % 12.4 % (19-41); Mean Corp Hgb Conc 27.7 g/dL (32-36); Mean Corpuscular Hgb 21.4 pg (27.0-32.0); Mean Corpuscular Volume 77.5 fL (81-99); Mean Platelet Vol. 10.6 fl (6.2-12.0); Monocyte# 0.67 X10^3/uL; NRBC Flagged by Analyzer 0 % (0-5); Neutrophil % 77.2 % (47-70); Platelet Count 407 K/mm3 (150-450); RBC Distribution Width CV 16.2 % (11.6-14.6); RBC Distribution Width SD 45.6 fl (35.1-43.9); Red Blood Count 4.62 M/mm3 (4.2-5.4); White Blood Count 8.4 K/mm3 (4.4-11.0)
[2020-11-20] MEDS: 0.9% Normal Saline 1,000 ML 1000 ML IV (17:07)
[2020-11-20 17:14] LABS: International Normalized Ratio 2.2; Prothrombin Time (Protime)PT. 23.4 SECONDS (11.7-14.9)
[2020-11-20 17:24] LABS: ALB/GLOB Ratio 0.9 RATIO (0.9-2.4); AST(SGOT) 21 U/L (15-37); Alanine Aminotransfer ALT/SGPT 17 U/L (13-56); Albumin, Serum 3.2 g/dL (3.2-5.0); Alkaline Phosphatase 79 U/L (45-117); Anion Gap 5 (5-15); BUN 16 mg/dL (7-18); BUN/Creat Ratio 14.2 RATIO (10-20); Calcium,Total 9.1 mg/dL (8.5-10.1); Chloride 105 mmol/L (98-107); Creatinine, Serum 1.13 mg/dL (0.55-1.02); EST Glomerular Filtration Rate 50 mL/min (>60); Est Glom Filt Rate - Afr Amer 60 mL/min (>60); Estimated Creatinine Clearance 35.58 ml/min; Globulin 3.6 g/dL (2.2-4.2); Glucose 80 mg/dL (74-106); Potassium 3.5 mmol/L (3.5-5.1); Protein, Total 6.8 g/dL (6.4-8.2); Sodium Level 140 mmol/L (136-145)
--- NOTE | 2020-11-20 17:25 | RAD_ITS ---
STUDY: X-RAY CHEST REASON FOR EXAM: Female, 74 years old. Cough TECHNIQUE: Single frontal view of the chest. COMPARISON: 10/10/2020 FINDINGS: There is stable elevation of the right hemidiaphragm. There is a stable linear opacity within the left midlung may reflect underlying atelectasis and/or scarring. Sternal cerclage wires are present from a prior sternotomy. The cardiac silhouette is within normal limits. Normal mediastinum and chica. Normal visualized pulmonary arteries. Normal visualized aortic arch and descending thoracic aorta. Normal visualized thoracic spine. Normal visualized ribs, clavicles, and shoulders. There is no demonstrated abnormality of the visualized soft tissue structures of the upper abdomen. RAD/Chest 1 View (Portable) IMPRESSION: Stable examination demonstrating no acute cardiopulmonary process. Electronically Signed: Juanita Stack MD at 18:07 EDT Tel , Service support ,
[2020-11-20 17:35] LABS: Bacteria 0 SEEN /hpf (None Seen); Mucous, Urine 0 SEEN /hpf (<or=2+); Red Blood Cells-Urine 0 SEEN /hpf (0-5)
[2020-11-20 17:37] LABS: Glucose, Dipstick Normal (Normal); Ketone-Dipstick Negative (Negative); Leukocyte Esterase-Dipstick 25 /ul (Negative); Nitrite-Dipstick Negative (Negative); Occult Blood-Urine Negative /ul (Negative); Protein-Dipstick Negative (Negative); Specific Gravity, Urine 1.005 (1.002-1.030); Urine Bilirubin Dipstick Negative (Negative); Urine Clarity Clear (Clear); Urine Urobilinogen Normal (Normal)
[2020-11-20 17:40] LABS: Color, Urine SEE COMMENT BELOW (Yellow)
[2020-11-20 17:57] LABS: Squamous Epithelial Cells - UA 0-5 SEEN /hpf (5-10)
[2020-11-20 18:00] LABS: White Blood Cells 0-5 SEEN /hpf (0-5)
[2020-11-20 18:11] VITALS: BP 160/88; PULSE 84; RESP 15; O2SAT 97
[2020-11-20 18:34] VITALS: BP 157/87; BP 158/68; BP 167/83; PULSE 75; PULSE 77
--- NOTE | 2020-11-20 18:41 | ED.VISSUMM ---
- ER Visit Summary Date of Service: 11/20/20 Chief Complaint: Weakness History of Present Illness: The patient is a [address] Cornejo. Patient reports that she was shopping in a store approximately 330 this afternoon when she became very lightheaded and her vision started to blur and blackout. She reports that she was short of breath and diaphoretic during this. She denies any chest pain or palpitations. No nausea. No abdominal pain. reports that it seemed as though she could not control her legs and that both legs were weak. Patient denies any weakness or numbness in her arms. Patient reports that she is back to her baseline now. Patient reports that she has a cough is productive green sputum without blood. She states this is been present for 2 years and is unchanged. She is chronic shortness of breath is unchanged. She has a sore throat is 5-10 severity. She denies any fever or chills. No change in her vision. No headache. No dysuria or frequency. No abdominal pain, nausea, vomiting, or diarrhea. Physical Examination: Vitals: Stable. Afebrile. General: Well-nourished and well-developed. Head: Normocephalic atraumatic. Neck: Supple, no lymphadenopathy. No JVD. Nontender. Cardiovascular: Regular rate and rhythm. 2 out of 6 systolic murmur with mechanical valve click. Respiratory: No respiratory distress. Clear to auscultation bilaterally. Abdominal: Soft, nontender, nondistended, normal bowel sounds. No guarding, rebound, or peritoneal signs. Back: Nontender. Extremities: Nontender, no edema. 2+ dorsalis pedis pulses lower extremity bilaterally. Skin: Normal color, no rash. Neurologic: Alert and oriented ?3. Cranial nerves II through XII are intact. Normal strength and sensation. NIH is 0. Psych: Normal affect. Test Results: EKG is sinus at 67 no acute changes. Troponin is negative. UA is negative. LFTs are normal. INR is 2.2. Chem-7 shows a creatinine 1.13. CBC shows an H&H 9.9 35.8, segmented for 77, lymphs at 12. Clinical Impression(s) from Imaging Studies Brain CT 11/20/20 16:35 IMPRESSION: Chronic involutional changes of the brain. Small vessel ischemia. Pansinusitis. Electronically Signed: Juanita Stack MD at 18:06 EDT Tel , Service support , Chest X-Ray 11/20/20 17:25 IMPRESSION: Stable examination demonstrating no acute cardiopulmonary process. Electronically Signed: Juanita Stack MD at 18:07 EDT Tel , Service support , Emergency Department Course and Treatment: Patient had negative orthostatic vital signs. She is resting comfortably. Treatment Plan: Given the constellation of patient's symptoms I suspect that she had a near syncopal episode in the store. She will be discharged instructions push fluids. Follow-up with her primary care physician in 2 days for another exam. I did discuss that the CT showing sinusitis. She states that this is a chronic problem. She will be placed on Zyrtec. I do not think putting her on antibiotic is warranted are in her best interest. Return to the emergency department for any worsening symptoms. Disposition: To home in improved and stable condition. Impression: 1. Near syncope. 2. Sinusitis. 3. Anemia. 4. Coumadin coagulopathy. This note was generated with [employer] dictation software. It may contain incorrect words, spelling, and punctuation that were not noted in review of the chart prior to signing ED Disposition - Plan for ED Patient: Instructions: ED Near-Fainting, Uncertain Cause Prescriptions: Cetirizine HCl [Zyrtec] 10 mg PO DAILY #14 capsule Prescription Printed Referrals: Harley Cornejo MD [Primary Care Provider] - 2 Days
--- NOTE | 2020-11-20 18:42 | CM.ED ---
SOCIAL WORK Referral Source: NurseLuis Fernando Reason for Consult: Information on Advanced Directives Met with patient and patient's in room. Introduced role and reason for referral. states used to have Living Will and HPOA forms. states unsure where they are located and requested blank copy of forms. Forms provided. All questions answered. Yin Quinones MSW, [employer]
[2020-11-20 19:04] VITALS: BP 120/89; PULSE 67; RESP 16; O2SAT 93
== END 2020-11-20 19:18 | disposition home or self-care (01) ==
LOC: ED 16:37
PROVIDERS: Emergency Provider Emergency Medicine; PCP Family Medicine
DX: R55 Syncope and collapse (principal); D64.9 Anemia, unspecified; R79.1 Abnormal coagulation profile; T45.515A Adverse effect of anticoagulants, initial encounter; I67.82 Cerebral ischemia; J32.4 Chronic pansinusitis; R01.1 Cardiac murmur, unspecified; R06.02 Shortness of breath
CPT/HCPCS: 70450; 71045; 80053; 81001; 84484; 85025; 85610; 87426; 93005; 96360; 99284

== ENCOUNTER → 2020-12-10 09:16 | Outpatient (CLI) | payer MEDICARE, OTHER, SELFPAY ==
[2020-11-20 15:58] VITALS: BMI 28.3
== END ==
PROVIDERS: PCP Family Medicine; Referring Provider Internal Medicine Infectious Disease; Visit Provider Internal Medicine Infectious Disease
DX: R19.7 Diarrhea, unspecified (principal)
CPT/HCPCS: 87493

== ENCOUNTER → 2021-02-11 10:42 | Outpatient (CLI) | payer MEDICARE, OTHER, SELFPAY ==
[2020-12-24 07:51] VITALS: BMI 28.7
--- NOTE | 2021-02-12 05:53 | PFT ---
INTRODUCTION: The patient is a 75-year-old female that presents for pulmonary function studies secondary to a diagnosis of bronchiectasis. Respiratory therapy reports good patient effort. Bronchodilators were used during testing. INTERPRETATION: Forced expiration spirometry demonstrates the presence of a moderately severe large airways obstructive ventilatory defect. There was no significant response to aerosolized bronchodilators. Spirograms are of good quality but do not plateau indicating slow emptying of the lungs. Body plethysmography was performed and revealed an elevated RV to 155% of predicted, indicative of underlying air trapping. Diffusing capacity by single breath CO is moderately reduced at 57% of predicted. 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
== END ==
PROVIDERS: PCP Family Medicine; Referring Provider Nurse Practitioner Acute Care; Visit Provider Nurse Practitioner Acute Care
DX: J47.9 Bronchiectasis, uncomplicated (principal)
CPT/HCPCS: 94060; 94726; 94729

== ENCOUNTER 2021-03-26 14:46 | Emergency (ER) | payer MEDICARE, OTHER, SELFPAY ==
[2021-03-26 14:47] VITALS: BP 158/74; PULSE 92; RESP 24; TEMP 38.2; O2SAT 85; BMI 30.3
[2021-03-26 14:53] VITALS: BP 158/74; PULSE 88; RESP 18; TEMP 39; O2SAT 88
--- NOTE | 2021-03-26 16:30 | EKG12_ITS ---
Test Reason : FEVER Blood Pressure : / mmHG Vent. Rate : 085 BPM Atrial Rate : 085 BPM P-R Int : 152 ms QRS Dur : 092 ms QT Int : 410 ms P-R-T Axes : 000 007 061 degrees QTc Int : 487 ms Normal sinus rhythm Normal ECG Confirmed by TICO MAC, JARRED ([id number]), senior technical editor BOBBY CARIAS ([id number]) on 03/28/2021 12:37:33 PM Referred By: Confirmed By:JARRED DOSHI MD
[2021-03-26 16:32] VITALS: BP 122/72; PULSE 83; RESP 24; TEMP 38.3; O2SAT 93
[2021-03-26] MEDS: Acetaminophen 500 MG Tablet 1000 MG PO (17:04)
[2021-03-26 17:05] LABS: Lactic Acid 1.4 mmol/L (0.4-1.9)
[2021-03-26 17:08] LABS: ALB/GLOB Ratio 0.9 RATIO (0.9-2.4); AST(SGOT) 19 U/L (15-37); Alanine Aminotransfer ALT/SGPT 18 U/L (13-56); Albumin, Serum 3.5 g/dL (3.2-5.0); Alkaline Phosphatase 84 U/L (45-117); Anion Gap 8 (5-15); BUN 15 mg/dL (7-18); BUN/Creat Ratio 13.9 RATIO (10-20); Calcium,Total 9.3 mg/dL (8.5-10.1); Chloride 103 mmol/L (98-107); Creatinine, Serum 1.08 mg/dL (0.55-1.02); EST Glomerular Filtration Rate 52 mL/min (>60); Est Glom Filt Rate - Afr Amer 63 mL/min (>60); Estimated Creatinine Clearance 36.66 ml/min; Glucose 100 mg/dL (74-106); Potassium 3.3 mmol/L (3.5-5.1); Protein, Total 7.5 g/dL (6.4-8.2); Sodium Level 140 mmol/L (136-145); Troponin-I HS 14 pg/mL (3.0-54.0)
[2021-03-26 17:11] LABS: Absolute Lymphocyte Count 0.53 X10^3/uL (0.83-4.51); Absolute Neutrophil Count 15.6 X10^3/uL (2.0-7.7); Basophil# 0.06 X10^3/uL; Basophil% 0.4 % (0-1); Eosinophil# 0.06 X10^3/uL; Eosinophils% 0.4 % (0-5); Hemoglobin 13.7 g/dL (12.0-15.0); Lymphocyte # 0.53 X10^3/ul (0.83-4.51); Lymphocyte % 3.1 % (19-41); Mean Corp Hgb Conc 30.4 g/dL (32-36); Mean Corpuscular Hgb 25.2 pg (27.0-32.0); Mean Corpuscular Volume 82.9 fL (81-99); Mean Platelet Vol. 10.8 fl (6.2-12.0); Monocyte# 0.64 X10^3/uL; Monocyte% 3.8 % (0-10); NRBC Flagged by Analyzer 0 % (0-5); Neutrophil # 15.56 X10^3/uL (2.7-7.7); POSITIVE DIFFERENTIAL YES; POSITIVE MORPHOLOGY YES; Platelet Count 287 K/mm3 (150-450); RBC Distribution Width CV 20.8 % (11.6-14.6); RBC Distribution Width SD 61.4 fl (35.1-43.9); Red Blood Count 5.43 M/mm3 (4.2-5.4); White Blood Count 16.9 K/mm3 (4.4-11.0)
[2021-03-26 17:12] LABS: Differential Indicated SCAN CRITERIA MET
--- NOTE | 2021-03-26 17:22 | RAD_ITS ---
STUDY: X-RAY CHEST REASON FOR EXAM: Female, 75 years old. cough TECHNIQUE: AP COMPARISON: 11/20/2020 FINDINGS: EKG leads project over the chest. Sternal wires present. Stable elevation of the right hemidiaphragm. Chronic fibrotic scarring in the left lung base stable. There is no demonstrated pleural abnormality. Normal size heart. Normal mediastinum and chica. Normal visualized pulmonary arteries. There is atherosclerotic calcification of the aortic arch with tortuosity. There is demineralization of the osseous structures. Normal visualized ribs, clavicles, and shoulders. There is no demonstrated abnormality of the visualized soft tissue structures of the upper abdomen. RAD/Chest 1 View (Portable) IMPRESSION: Stable, nonacute portable x-ray examination of the chest. Electronically Signed: Ben Aguila MD ([place]) at 17:47 EDT , Service support ,
[2021-03-26 17:30] VITALS: O2SAT 94
[2021-03-26 17:46] LABS: Anisocytosis 4+; Differential Comment SCANNED; Platelet Estimate ADEQUATE (ADEQ)
--- NOTE | 2021-03-26 17:49 | EDS_ITS ---
HPI History of Present Illness Chief Complaint: Fever Informant: patient Onset/Context/Timing Onset: Today Context: Gradual Onset Timing: Intermittent and Lasts (4 hours) Quality: Tightness Location: Chest Worsened by: Nothing Relieved by: Nothing Narrative Narrative: Patient presents with fever and chest tightness that began today. Patient states it began approximately 4 hours prior to arrival. Patient describes as a tightness across her chest. Patient states nothing makes it better nothing makes it worse. Patient states her temperature at home was up to 101. Patient admits to some rhinorrhea. Patient states she has a chronic cough with yellow to green and brown sputum. Patient admits to nausea but denies any vomiting. Patient denies any urinary complaints. [facility] Medical History (Updated 03/26/21 @ 21:[address] 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 Nonrheumatic aortic valve regurgitation Nonspecific chest pain Obesity Palpitations Severe sepsis Syncope and collapse Home Medications pantoprazole 40 mg PO BID 01/14/15 [History Last Taken 07/07/20] bupropion HCl 150 mg PO DAILY 11/15/15 [History Last Taken 07/07/20] montelukast 10 mg PO QHS 05/03/17 [History Last Taken 07/06/20] potassium chloride 20 meq PO DAILY 05/03/17 [History Last Taken 07/06/20] aspirin 81 mg chewable tablet 162 mg PO DAILY tab 09/04/17 [History Last Taken 07/07/20] lorazepam 0.5 mg tablet 0.5 mg PO BID PRN 09/04/17 [History Last Taken 07/07/20] furosemide 40 mg PO DAILY #0 12/06/17 [Rx Last Taken 07/06/20] cholecalciferol (vitamin D3) 1,250 mcg (50,000 unit) capsule 50,000 unit PO FR 06/16/19 [History Last Taken 06/25/20] metoprolol succinate 50 mg tablet,extended release 24 hr 50 mg PO DAILY #90 tab 07/06/20 [Rx Last Taken 07/06/20] acetaminophen 650 mg PO Q6H PRN 07/07/20 [History Last Taken 07/07/20] pravastatin 80 mg tablet 80 mg PO QHS #90 tab 07/27/20 [Rx Last Taken Unknown] amiodarone 200 mg tablet 100 mg PO DAILY #45 tab 08/02/20 [Rx Last Taken Unknown] ezetimibe 10 mg tablet 10 mg PO DAILY #90 tab 09/20/20 [Rx Last Taken Unknown] warfarin 3 mg PO SUMOTUTHSA 09/30/20 [History Last Taken Unknown] warfarin 4.5 mg PO WEFR 09/30/20 [History Last Taken Unknown] albuterol sulfate 90 mcg/actuation aerosol inhaler 2 puff INHALATION Q4H PRN #18 g 01/25/21 [Rx Last Taken Unknown] budesonide-formoterol HFA 160 mcg-4.5 mcg/actuation aerosol inhaler 2 inh INHALATION BID #10.2 g 03/09/21 [Rx Last Taken Unknown] cephalexin 500 mg PO Q6 #40 capsule 03/26/21 [Rx Last Taken Unknown] famotidine 20 mg PO DAILY 03/26/21 [History Last Taken Unknown] gabapentin 100 mg PO QHS 03/26/21 [History Last Taken Unknown] paroxetine HCl 20 mg PO DAILY 03/26/21 [History Last Taken Unknown] triamcinolone acetonide [Nasacort] 1 spray INTRANASAL DAILY 03/26/21 [History Last Taken Unknown] Allergy/AdvReac Type Severity Reaction Status Date / Time donepezil Allergy Severe shortness Verified 12/24/20 10:15 of breath Sulfa (Sulfonamide Allergy Swelling Verified 12/24/20 10:15 Antibiotics) celecoxib [From Celebrex] AdvReac Severe Swelling Verified 12/24/20 10:15 dextromethorphan AdvReac Severe hallucinati Verified 12/24/20 10:15 [From Delsym] on adhesive AdvReac blisters Verified 12/24/20 10:15 codeine AdvReac Itching Verified 12/24/20 10:15 levofloxacin [From Levaquin] AdvReac pain in Verified 12/24/20 10:15 legs and swelling lisinopril AdvReac cough Verified 12/24/20 10:15 oxycodone [Oxycodone] AdvReac Itching Verified 12/24/20 10:15 oxycodone HCl [From Percocet] AdvReac Itching Verified 12/24/20 10:15 Penicillins AdvReac heart Verified 12/24/20 10:15 palpitations prochlorperazine edisylate AdvReac Low blood Verified 12/24/20 10:15 [From Compazine] pressure prochlorperazine maleate AdvReac Low blood Verified 12/24/20 10:15 [From Compazine] pressure tramadol HCl [From Ultram] AdvReac Itching Verified 12/24/20 10:15 Family History Mother Arthritis CAD (coronary artery disease) Father Arthritis High cholesterol CAD (coronary artery disease) Sister Diabetes High cholesterol Hypertension Brother Diabetes High cholesterol Hypertension Surgical History H/O aortic valve replacement History of back surgery History of foot surgery History of hysterectomy History of mechanical aortic valve replacement (~10/07/13) History of sinus surgery Social History Smoking Status: Never smoker alcohol intake: never substance use type: does not use caffeine: Yes Type: coffee what type of physical activity do you participate in: none seatbelt use: always do you feel safe at home: Yes ROS ROS ED Constitutional Constitutional ED: Reports fever(s); Denies chills Eyes Eyes: Denies blurry vision or change in vision ENT ENT ED: Reports rhinorrhea; Denies sore throat Cardiovascular Cardiovascular: Reports chest pain; Denies palpitations Respiratory/Chest Respiratory/Chest: Reports cough and sputum; Denies dyspnea Gastrointestinal Gastrointestinal: Reports nausea; Denies vomiting Genitourinary Genitourinary ED: Denies dysuria or hematuria Musculoskeletal Musculoskeletal: Denies back pain or neck pain Integumentary Denies abscess or rash Neurologic Neurologic: Denies headache(s) or weakness Allergic/Immunologic Allergic/Immunologic ED: Denies mouth swelling or urticaria EXAM Physical Exam Const Vital Signs: 03/26/21 14:47 03/26/21 14:53 03/26/21 15:00 Temperature 100.8 F H 102.2 F H Temperature Source Temporal Tympanic Pulse Rate 92 88 Respiratory Rate 24 H 18 Respiratory Effort Short of Breath Labored Accessory Muscle Use Respiratory Pattern Tachypnea Blood Pressure 158/74 H 158/74 H Blood Pressure Mean 102 102 Pulse Ox 85 88 Oxygen Delivery Method Room Air Room Air Oxygen Flow Rate (L/min) 0 03/26/21 16:32 03/26/21 19:00 Temperature 101 F H 99.9 F H Temperature Source Temporal Temporal Pulse Rate 83 71 Respiratory Rate 24 H 19 H Respiratory Effort Respiratory Pattern Blood Pressure 122/72 H 128/78 H Blood Pressure Mean 88 94 Pulse Ox 93 91 Oxygen Delivery Method Nasal Cannula Nasal Cannula Oxygen Flow Rate (L/min) 4 4 Positive well nourished and well developed General Appearance ED: well developed HEENT Reports moist mucous membranes Neck supple and no JVD Resp normal respiratory effort and clear to auscultation bilaterally Cardio regular rate and regular rhythm Rate: other Other Details: Mechanical heart valve was auscultated at the left upper sternal border GI normal to inspection, nondistended, normoactive bowel sounds and non-tender Palpation: soft Extremity normal to inspection General Extremety ED: Negative for edema or tenderness General Extremity: Negative for edema Neuro oriented x3, CN's II-XII intact bilaterally and no sensory deficits noted Sensorium / Orientation: alert Motor Exam: strength 5/5 throughout Psych mental status grossly normal Skin no rashes or lesions noted MDM MDM MDM Narrative Medical decision making narrative: Patient was given IV fluids and Tylenol. EKG was obtained. On my interpretation, it showed a normal sinus rhythm with a rate of 85. [place] interval, QRS interval, and QTc intervals were all normal. [place] was normal. There are no acute ST or T wave changes. CBC shows a leukocytosis of 16.9. Hemoglobin and hematocrit are normal. Platelets are normal. Comprehensive metabolic profile was within normal limits. High-sensitivity troponin was normal. Lactate was normal. Portable 1 view chest x-ray was obtained. On my interpretation, lung godwin are clear. There is normal cardiac silhouette. Bony thorax is normal. There is no acute process noted. Radiologist also interpreted the x-ray and agrees. COVID-19 rapid antigen was obtained and was negative. Urinalysis was ordered and does not show any evidence of urinary tract infection. On repeat examination, patient does have tenderness to percussion over the maxillary sinuses, worse on the left. Patient was given a prescription for Keflex. Patient was instructed to follow-up with her primary care physician in 5 to 7 days. Patient understood and was agreeable with the plan. All questions were answered. Lab Data Labs: Laboratory Results - last 24 hr 03/26/21 03/26/21 03/26/21 14:55 14:55 14:55 WBC 16.9 H RBC 5.43 H Hgb 13.7 Hct 45.0 MCV 82.9 MCH 25.2 L MCHC 30.4 L RDW Std Deviation 61.4 H RDW Coeff of Loki 20.8 H Plt Count 287 MPV 10.8 Immature Gran % (Auto) 0.300 Neut % (Auto) 92.0 H Lymph % (Auto) 3.1 L Lamar % (Auto) 3.8 Eos % (Auto) 0.4 Baso % (Auto) 0.4 Absolute Neuts (auto) 15.6 H Absolute Lymphs (auto) 0.53 L Nucleated RBC % 0 Differential Comment SCANNED Platelet Estimate ADEQUATE Anisocytosis 4+ Sodium 140 Potassium 3.3 L Chloride 103 Carbon Dioxide 29.0 Anion Gap 8 BUN 15 Creatinine 1.08 H Estim Creat Clear Calc 36.66 Est GFR (MDRD) Af Amer 63 Est GFR (MDRD) Non-Af 52 L BUN/Creatinine Ratio 13.9 Glucose 100 Lactic Acid 1.4 Calcium 9.3 Total Bilirubin 0.40 AST 19 ALT 18 Alkaline Phosphatase 84 Troponin I High Sens 14 Total Protein 7.5 Albumin 3.5 Globulin 4.0 Albumin/Globulin Ratio 0.9 Urine Color Urine Clarity Urine pH Ur Specific [place] Urine Protein Urine Glucose (UA) Urine Ketones Urine Occult Blood Urine Nitrite Urine Bilirubin Urine Urobilinogen Ur Leukocyte Esterase Urine RBC Urine WBC Ur Squamous Epith Cells Urine Bacteria Urine Mucus 03/26/21 20:35 WBC RBC Hgb Hct MCV MCH MCHC RDW Std Deviation RDW Coeff of Loki Plt Count MPV Immature Gran % (Auto) Neut % (Auto) Lymph % (Auto) Lamar % (Auto) Eos % (Auto) Baso % (Auto) Absolute Neuts (auto) Absolute Lymphs (auto) Nucleated RBC % Differential Comment Platelet Estimate Anisocytosis Sodium Potassium Chloride Carbon Dioxide Anion Gap BUN Creatinine Estim Creat Clear Calc Est GFR (MDRD) Af Amer Est GFR (MDRD) Non-Af BUN/Creatinine Ratio Glucose Lactic Acid Calcium Total Bilirubin AST ALT Alkaline Phosphatase Troponin I High Sens Total Protein Albumin Globulin Albumin/Globulin Ratio Urine Color Yellow Urine Clarity Sl. Cloudy Urine pH 5.0 Ur Specific [place] 1.020 Urine Protein 15 H Urine Glucose (UA) Normal Urine Ketones Negative Urine Occult Blood 10 H Urine Nitrite Negative Urine Bilirubin Negative Urine Urobilinogen Normal Ur Leukocyte Esterase Negative Urine RBC 0-5 SEEN Urine WBC 0 SEEN Ur Squamous Epith Cells 0-5 SEEN Urine Bacteria 0 SEEN Urine Mucus 0 SEEN Radiography Diagnostic Testing: Radiology Impression Chest X-Ray 03/26/21 17:22 IMPRESSION: Stable, nonacute portable x-ray examination of the chest. Electronically Signed: Ben Aguila MD ([place]) at 17:47 EDT , Service support , EKG Initial EKG: Attestation: I personally reviewed and interpreted this EKG as follows: Interpretation: Sinus Rhythm (85) and No Acute Injury Pattern Prior EKG tracings: available for review Prior: Unchanged (11/20/2020) Discharge Plan Triage Chief Complaint: Fever ED Provider: Britton Rivas Dx/Rx/DC Orders Clinical Impression: Sinusitis, acute maxillary Instructions: ED Sinusitis (Antibiotic Treatment) Prescriptions: New cephalexin [cephalexin] 500 MG capsule 500 mg PO Q6 Qty: 40 RF: 0 No Action cholecalciferol (vitamin D3) 50,000 unit capsule 50,000 unit PO FR RF: 0 pantoprazole 40 MG tablet 40 mg PO BID RF: 0 aspirin 81 MG tablet,chewable 162 mg PO DAILY RF: 0 lorazepam 0.5 MG tablet 0.5 mg PO BID PRN (Reason: ANXIETY) RF: 0 bupropion HCl 150 MG tablet extended release 24 hr 150 mg PO DAILY RF: 0 potassium chloride 20 MEQ tablet 20 meq PO DAILY RF: 0 montelukast 10 MG tablet 10 mg PO QHS RF: 0 furosemide 40 MG tablet 40 mg PO DAILY Qty: 0 RF: 0 acetaminophen 650 MG tablet extended release 650 mg PO Q6H PRN (Reason: BACK PAIN) RF: 0 warfarin 2.5 MG tablet 4.5 mg PO WEFR RF: 0 warfarin 3 MG tablet 3 mg PO SUMOTUTHSA RF: 0 famotidine 20 mg tablet 20 mg PO DAILY RF: 0 paroxetine HCl 20 mg tablet 20 mg PO DAILY RF: 0 gabapentin 100 mg capsule 100 mg PO QHS RF: 0 triamcinolone acetonide [Nasacort] 55 mcg Aerosol,[place] 1 spray INTRANASAL DAILY RF: 0 metoprolol succinate 50 mg tablet extended release 24 hr 50 mg PO DAILY Qty: 90 RF: 3 pravastatin 80 mg tablet 80 mg PO QHS Qty: 90 RF: 3 amiodarone 200 mg tablet 100 mg PO DAILY Qty: 45 RF: 3 ezetimibe [Zetia] 10 mg tablet 10 mg PO DAILY Qty: 90 RF: 3 albuterol sulfate [ProAir HFA] 90 mcg/actuation HFA aerosol inhaler 2 puff INHALATION Q4H PRN (Reason: shortness of breath or wheezing) Qty: 18 RF: 6 budesonide-formoterol 160-4.5 mcg/actuation HFA aerosol inhaler 2 inh INHALATION BID Qty: 10.2 RF: 6 Primary Care Provider: Harley Cornejo Referrals: Harley Cornejo MD [Primary Care Provider] - 5-7 Days Disposition Disposition: Home, Self Care
[2021-03-26 19:00] VITALS: BP 128/78; PULSE 71; RESP 19; TEMP 37.7; O2SAT 91
[2021-03-26 20:46] LABS: Bacteria 0 SEEN /hpf (None Seen); Mucous, Urine 0 SEEN /hpf (<or=2+); White Blood Cells 0 SEEN /hpf (0-5)
[2021-03-26 20:48] LABS: Color, Urine Yellow (Yellow); Glucose, Dipstick Normal (Normal); Ketone-Dipstick Negative (Negative); Leukocyte Esterase-Dipstick Negative /ul (Negative); Nitrite-Dipstick Negative (Negative); Occult Blood-Urine 10 /ul (Negative); Protein-Dipstick 15 mg/dl (Negative); Urine Bilirubin Dipstick Negative (Negative); Urine Clarity Sl. Cloudy (Clear); Urine Urobilinogen Normal (Normal)
[2021-03-26 20:55] LABS: Red Blood Cells-Urine 0-5 SEEN /hpf (0-5); Squamous Epithelial Cells - UA 0-5 SEEN /hpf (5-10)
[2021-03-26] MEDS: Cephalexin 500 MG Capsule PO (21:25)
[2021-03-26 21:35] VITALS: BP 124/78; PULSE 78; RESP 16; O2SAT 96
== END 2021-03-26 21:36 | disposition home or self-care (01) ==
PROVIDERS: Emergency Provider Emergency Medicine; PCP Family Medicine
DX: J01.00 Acute maxillary sinusitis, unspecified (principal); E78.5 Hyperlipidemia, unspecified; F32.9 Major depressive disorder, single episode, unspecified; F41.9 Anxiety disorder, unspecified; I11.0 Hypertensive heart disease with heart failure; I25.10 Atherosclerotic heart disease of native coronary artery without angina pectoris; I50.32 Chronic diastolic (congestive) heart failure; I71.2 Thoracic aortic aneurysm, without rupture; J45.909 Unspecified asthma, uncomplicated; K21.9 Gastro-esophageal reflux disease without esophagitis; K44.9 Diaphragmatic hernia without obstruction or gangrene; Z79.01 Long term (current) use of anticoagulants; Z79.1 Long term (current) use of non-steroidal anti-inflammatories (NSAID); Z79.82 Long term (current) use of aspirin; Z79.899 Other long term (current) drug therapy; Z95.2 Presence of prosthetic heart valve
CPT/HCPCS: 71045; 80053; 81001; 83605; 84484; 85025; 87040; 87426; 93005; 99285; J7040; A4216

== ENCOUNTER → 2021-04-05 16:53 | Outpatient (CLI) | payer MEDICARE, OTHER, SELFPAY ==
--- NOTE | 2021-04-05 16:54 | CT_ITS ---
EXAM: CT CHEST WITHOUT INTRAVENOUS CONTRAST : 1945 CLINICAL INDICATION: h/o bronchiectasis/hemoptysis, weight loss TECHNIQUE: Helically acquired images were obtained of the chest without intravenous contrast. This CT exam was performed using one or more of the following dose reduction techniques: automated exposure control, adjustment of the mA and/or kV according to patient size, and/or use of iterative reconstruction technique. This report was created using [employer] report generation technology. COMPARISON: 01/28/2019 FINDINGS: LUNGS AND PLEURAL SPACES: There is minimal airspace disease in the right lower lobe. There is no effusion. No mass. HEART: Unremarkable. Heart size is normal. No pericardial effusion. MEDIASTINUM: There is a large hiatal hernia present. No mediastinal or hilar adenopathy. Esophagus is unremarkable. THYROID: Unremarkable. No thyroid lesions. BONES/JOINTS: Unremarkable. No suspicious lytic or blastic abnormality. VASCULATURE: Unremarkable. Thoracic aorta is non-dilated. OTHER FINDINGS: There is elevation of the right hemidiaphragm. CT/Chest without Contrast IMPRESSION: Minimal right basilar airspace disease which may represent scar or atelectasis. There has been very little change from the reference examination. Individualized dose optimization techniques were used for this CT. at 1759 Reported and signed by: Tom Pope MD Electronically Signed: Tom Pope MD at 17:58 EDT Tel , Service support ,
== END ==
PROVIDERS: PCP Family Medicine; Referring Provider Internal Medicine Critical Care Medicine; Visit Provider Internal Medicine Critical Care Medicine
DX: R63.4 Abnormal weight loss (principal)
CPT/HCPCS: 71250

== ENCOUNTER → 2021-04-13 12:32 | Outpatient (CLI) | payer MEDICARE, OTHER, SELFPAY ==
[2021-04-13 12:58] LABS: International Normalized Ratio 2.5; Prothrombin Time (Protime)PT. 26.6 SECONDS (11.7-14.9)
== END ==
PROVIDERS: PCP Family Medicine; Visit Provider Family Medicine
DX: Z95.2 Presence of prosthetic heart valve (principal)
CPT/HCPCS: 85610

== ENCOUNTER 2021-04-27 23:47 | Emergency (ER) | payer MEDICARE, OTHER, SELFPAY ==
[2021-04-27 23:49] VITALS: BP 157/98; PULSE 86; RESP 22; TEMP 38.6; O2SAT 88; BMI 24.1
--- NOTE | 2021-04-28 00:01 | RAD_ITS ---
STUDY: X-RAY CHEST REASON FOR EXAM: Female, 75 years old. SOB WITH FEVER TECHNIQUE: Portable, upright, AP chest radiograph COMPARISON: 03/26/2021 FINDINGS: Elevated right hemidiaphragm redemonstrated. Large hiatal hernia with overlying atelectasis redemonstrated. Bilateral perihilar streaky opacities. There is no demonstrated pleural abnormality. Normal size heart. Normal mediastinum and chica. Normal visualized pulmonary arteries. Normal visualized aortic arch and descending thoracic aorta. Normal visualized ribs, clavicles, and shoulders. RAD/Chest 1 View (Portable) IMPRESSION: Streaky perihilar opacities may represent pulmonary infiltrates. Electronically Signed: Rory Salas MD at 1:43 EDT Tel , Service support ,
[2021-04-28 00:31] VITALS: BP 184/90; PULSE 86; RESP 25; RESP 26; O2SAT 95
--- NOTE | 2021-04-28 00:41 | EX.ED.DYSGE1 ---
HPI <Dr. Tyler Bergman DO - Last Filed: 04/28/21 00:44> History of Present Illness Chief Complaint: Shortness of Breath Informant: patient and spouse/S.O. Narrative Narrative: 75-year-old female presenting to the emergency department for the evaluation of nasal drainage, fever, and shortness of breath. Patient has a history of chronic sinusitis. She states that her nose has been draining for the past 2 years. She states she is seeing several doctors for this and nothing can be done. She will at times develop fever with this. She states at these times she becomes significantly weak. She has a history of bronchiectasis and wears oxygen at nighttime. She states that she has a history of having only a half a long on the right. She sees Dr. Johnson for pulmonology. She has not had anything recently for fever. [facility] <Dr. yTler Bergman DO - Last Filed: 04/28/21 00:44> [facility] Medical History (Updated 04/28/21 @ 02:[address] 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 Nonrheumatic aortic valve regurgitation Nonspecific chest pain Obesity Palpitations Severe sepsis Syncope and collapse Home Medications pantoprazole 40 mg PO BID 01/14/15 [History Last Taken 07/07/20] bupropion HCl 150 mg PO DAILY 11/15/15 [History Last Taken 07/07/20] montelukast 10 mg PO QHS 05/03/17 [History Last Taken 07/06/20] potassium chloride 20 meq PO DAILY 05/03/17 [History Last Taken 07/06/20] aspirin 81 mg chewable tablet 162 mg PO DAILY tab 09/04/17 [History Last Taken 07/07/20] lorazepam 0.5 mg tablet 0.5 mg PO BID PRN 09/04/17 [History Last Taken 07/07/20] furosemide 40 mg PO DAILY #0 12/06/17 [Rx Last Taken 07/06/20] cholecalciferol (vitamin D3) 1,250 mcg (50,000 unit) capsule 50,000 unit PO FR 06/16/19 [History Last Taken 06/25/20] metoprolol succinate 50 mg tablet,extended release 24 hr 50 mg PO DAILY #90 tab 07/06/20 [Rx Last Taken 07/06/20] acetaminophen 650 mg PO Q6H PRN 07/07/20 [History Last Taken 07/07/20] pravastatin 80 mg tablet 80 mg PO QHS #90 tab 07/27/20 [Rx Last Taken Unknown] amiodarone 200 mg tablet 100 mg PO DAILY #45 tab 08/02/20 [Rx Last Taken Unknown] ezetimibe 10 mg tablet 10 mg PO DAILY #90 tab 09/20/20 [Rx Last Taken Unknown] warfarin 3 mg PO SUMOTUTHSA 09/30/20 [History Last Taken Unknown] warfarin 4.5 mg PO WEFR 09/30/20 [History Last Taken Unknown] albuterol sulfate 90 mcg/actuation aerosol inhaler 2 puff INHALATION Q4H PRN #18 g 01/25/21 [Rx Last Taken Unknown] budesonide-formoterol HFA 160 mcg-4.5 mcg/actuation aerosol inhaler 2 inh INHALATION BID #10.2 g 03/09/21 [Rx Last Taken Unknown] famotidine 20 mg PO DAILY 03/26/21 [History Last Taken Unknown] gabapentin 100 mg PO QHS 03/26/21 [History Last Taken Unknown] paroxetine HCl 20 mg PO DAILY 03/26/21 [History Last Taken Unknown] triamcinolone acetonide [Nasacort] 1 spray INTRANASAL DAILY 03/26/21 [History Last Taken Unknown] amoxicillin-pot clavulanate [Augmentin] 1 tab PO BID #20 tab 04/28/21 [Rx Last Taken Unknown] Allergy/AdvReac Type Severity Reaction Status Date / Time donepezil Allergy Severe shortness Verified 04/27/21 23:49 of breath Sulfa (Sulfonamide Allergy Swelling Verified 04/27/21 23:49 Antibiotics) celecoxib [From Celebrex] AdvReac Severe Swelling Verified 04/27/21 23:49 dextromethorphan AdvReac Severe hallucinati Verified 04/27/21 23:49 [From Delsym] on adhesive AdvReac blisters Verified 04/27/21 23:49 codeine AdvReac Itching Verified 04/27/21 23:49 levofloxacin [From Levaquin] AdvReac pain in Verified 04/27/21 23:49 legs and swelling lisinopril AdvReac cough Verified 04/27/21 23:49 oxycodone [Oxycodone] AdvReac Itching Verified 04/27/21 23:49 oxycodone HCl [From Percocet] AdvReac Itching Verified 04/27/21 23:49 Penicillins AdvReac heart Verified 04/27/21 23:49 palpitations prochlorperazine edisylate AdvReac Low blood Verified 04/27/21 23:49 [From Compazine] pressure prochlorperazine maleate AdvReac Low blood Verified 04/27/21 23:49 [From Compazine] pressure tramadol HCl [From Ultram] AdvReac Itching Verified 04/27/21 23:49 Family History Mother Arthritis CAD (coronary artery disease) Father Arthritis High cholesterol CAD (coronary artery disease) Sister Diabetes High cholesterol Hypertension Brother Diabetes High cholesterol Hypertension Surgical History H/O aortic valve replacement History of back surgery History of foot surgery History of hysterectomy History of mechanical aortic valve replacement (~10/07/13) History of sinus surgery Social History Smoking Status: Never smoker alcohol intake: never substance use type: does not use caffeine: Yes Type: coffee what type of physical activity do you participate in: none seatbelt use: always do you feel safe at home: Yes ROS <Dr. Tyler Bergman DO - Last Filed: 04/28/21 00:44> ROS ED Constitutional Constitutional ED: Reports chills and fever(s); Denies weight loss Eyes Eyes: Denies change in vision or diplopia ENT ENT ED: Reports rhinorrhea; Denies ear pain or sore throat Cardiovascular Cardiovascular: Denies chest pain, orthopnea, palpitations or racing heartbeat Respiratory/Chest Respiratory/Chest: Reports cough and dyspnea; Denies orthopnea Gastrointestinal Gastrointestinal: Denies abdominal pain, diarrhea, nausea or vomiting Genitourinary Genitourinary ED: Denies dysuria, hematuria or urinary frequency Musculoskeletal Musculoskeletal: Denies arthralgias or myalgias Integumentary Denies abscess or rash Neurologic Neurologic: Denies headache(s) or weakness Psychiatric Psychiatric: Denies anxiety, depression, suicidal ideation or suicidal thoughts Endocrine Endocrinology: Denies polydipsia, polyphagia or polyuria Allergic/Immunologic Allergic/Immunologic ED: Denies mouth swelling, tongue swelling or urticaria EXAM <Dr. Tyler Bergman, DO - Last Filed: 04/28/21 00:44> Physical Exam Const Vital Signs: 04/27/21 23:49 04/28/21 00:31 04/28/21 00:32 Temperature 101.4 F H Temperature Source Temporal Pulse Rate 86 86 Respiratory Rate 22 H 26 H Respiratory Effort Normal Non-Labored Respiratory Pattern Normal Blood Pressure 157/98 H 184/90 H Blood Pressure Mean 117 121 Pulse Ox 88 95 Oxygen Delivery Method Room Air Nasal Cannula Oxygen Flow Rate (L/min) 2 04/28/21 00:58 04/28/21 02:12 Temperature Temperature Source Pulse Rate 79 66 Respiratory Rate 16 25 H Respiratory Effort Respiratory Pattern Normal Blood Pressure 160/65 H Blood Pressure Mean 96 Pulse Ox 94 Oxygen Delivery Method Oxygen Flow Rate (L/min) Positive well nourished and well developed General Appearance ED: well developed HEENT Reports normocephalic, head/scalp atraumatic, TM's clear and moist mucous membranes HEENT Narrative: Patient does have facial tenderness over the sinuses. There is nasal drainage. Tympanic Membrane ED: Yes TM's clear Eyes PERRL and EOMs intact bilaterally Neck no lymphadenopathy, supple and no JVD Resp normal respiratory effort Auscultation: rhonchi and wheezes expiratory wheezes Cardio regular rate, regular rhythm and no murmurs GI normal to inspection, nondistended, normoactive bowel sounds and non-tender Palpation: soft Back/Spine no CVA tenderness and normal ROM Extremity normal to inspection General Extremety ED: Negative for edema General Extremity: Negative for edema Neuro oriented x3 and CN's II-XII intact bilaterally Sensorium / Orientation: alert Motor Exam: strength 5/5 throughout Psych mental status grossly normal Mood & Affect: Negative for depressed or tearful Skin no rashes or lesions noted and no wounds <Dr. Ricardo Reyes MD - Last Filed: 04/28/21 02:50> Physical Exam Const Vital Signs: 04/27/21 23:49 04/28/21 00:31 04/28/21 00:32 Temperature 101.4 F H Temperature Source Temporal Pulse Rate 86 86 Respiratory Rate 22 H 26 H Respiratory Effort Normal Non-Labored Respiratory Pattern Normal Blood Pressure 157/98 H 184/90 H Blood Pressure Mean 117 121 Pulse Ox 88 95 Oxygen Delivery Method Room Air Nasal Cannula Oxygen Flow Rate (L/min) 2 04/28/21 00:58 04/28/21 02:12 Temperature Temperature Source Pulse Rate 79 66 Respiratory Rate 16 25 H Respiratory Effort Respiratory Pattern Normal Blood Pressure 160/65 H Blood Pressure Mean 96 Pulse Ox 94 Oxygen Delivery Method Oxygen Flow Rate (L/min) MDM <Dr. Tyler Bergman DO - Last Filed: 04/28/21 00:44> MDM MDM Narrative Medical decision making narrative: Patient received Tylenol for fever. Basic blood work was obtained. My interpretation of the chest x-ray is no acute process. Hiatal hernia noted as well as elevated hemidiaphragm on the right. At this point the care the patient be turned over to the oncoming physician for check of labs and final disposition. Lab Data Labs: Laboratory Results - last 24 hr 04/28/21 04/28/21 04/28/21 00:54 00:54 00:54 WBC 13.4 H RBC 5.24 Hgb 13.7 Hct 45.8 MCV 87.4 MCH 26.1 L MCHC 29.9 L RDW Std Deviation 52.4 H RDW Coeff of Loki 16.8 H Plt Count 290 MPV 9.9 Immature Gran % (Auto) 0.400 Neut % (Auto) 87.8 H Lymph % (Auto) 5.2 L [place] % (Auto) 5.3 Eos % (Auto) 0.9 Baso % (Auto) 0.4 Absolute Neuts (auto) 11.8 H Absolute Lymphs (auto) 0.70 L Nucleated RBC % 0 PT 27.4 H INR 2.6 APTT 44.6 H Sodium 142 Potassium 3.9 Chloride 106 Carbon Dioxide 30.0 Anion Gap 6 BUN 13 Creatinine 1.07 H Estim Creat Clear Calc 40.25 Est GFR (MDRD) Af Amer 64 Est GFR (MDRD) Non-Af 53 L BUN/Creatinine Ratio 12.1 Glucose 102 Lactic Acid Calcium 9.5 Total Bilirubin 0.40 AST 18 ALT 18 Alkaline Phosphatase 87 Total Protein 7.2 Albumin 3.2 Globulin 4.0 Albumin/Globulin Ratio 0.8 L 04/28/21 00:54 WBC RBC Hgb Hct MCV MCH MCHC RDW Std Deviation RDW Coeff of [place] Plt Count MPV Immature Gran % (Auto) Neut % (Auto) Lymph % (Auto) [place] % (Auto) Eos % (Auto) Baso % (Auto) Absolute Neuts (auto) Absolute Lymphs (auto) Nucleated RBC % PT INR APTT Sodium Potassium Chloride Carbon Dioxide Anion Gap BUN Creatinine Estim Creat Clear Calc Est GFR (MDRD) Af Amer Est GFR (MDRD) Non-Af BUN/Creatinine Ratio Glucose Lactic Acid 1.2 Calcium Total Bilirubin AST ALT Alkaline Phosphatase Total Protein Albumin Globulin Albumin/Globulin Ratio Radiography Diagnostic Testing: Radiology Impression Chest X-Ray 04/28/21 00:01 IMPRESSION: Streaky perihilar opacities may represent pulmonary infiltrates. Electronically Signed: Rory Salas MD at 1:43 EDT Tel , Service support , <Dr. Ricardo Reyes MD - Last Filed: 04/28/21 02:50> [facility] Narrative Medical decision making narrative: Patient's blood work showed just a slight elevation of white count of 13 4. INR is therapeutic. Electrolytes liver function test show no significant abnormality. Lactate is normal. Her x-ray did show elevation hemidiaphragm and hiatal hernia which is not new. There are some streaky changes that could be early pneumonia. This may also be her normal bronchiectasis. I talk with the patient. She would like to go home. She has had this many times. She has oxygen at home. She states she has used penicillin and amoxicillin without problems even though they are listed as an allergy. We will give her Augmentin here and to go. We discussed reasons to return and follow-up with her ENT physician and primary physician. Lab Data Attestation: I reviewed the patient's lab results. Labs: Laboratory Results - last 24 hr 04/28/21 04/28/21 04/28/21 00:54 00:54 00:54 WBC 13.4 H RBC 5.24 Hgb 13.7 Hct 45.8 MCV 87.4 MCH 26.1 L MCHC 29.9 L RDW Std Deviation 52.4 H RDW Coeff of [place]oki 16.8 H Plt Count 290 MPV 9.9 Immature Gran % (Auto) 0.400 Neut % (Auto) 87.8 H Lymph % (Auto) 5.2 L [place] % (Auto) 5.3 Eos % (Auto) 0.9 Baso % (Auto) 0.4 Absolute Neuts (auto) 11.8 H Absolute Lymphs (auto) 0.70 L Nucleated RBC % 0 PT 27.4 H INR 2.6 APTT 44.6 H Sodium 142 Potassium 3.9 Chloride 106 Carbon Dioxide 30.0 Anion Gap 6 BUN 13 Creatinine 1.07 H Estim Creat Clear Calc 40.25 Est GFR (MDRD) Af Amer 64 Est GFR (MDRD) Non-Af 53 L BUN/Creatinine Ratio 12.1 Glucose 102 Lactic Acid Calcium 9.5 Total Bilirubin 0.40 AST 18 ALT 18 Alkaline Phosphatase 87 Total Protein 7.2 Albumin 3.2 Globulin 4.0 Albumin/Globulin Ratio 0.8 L 04/28/21 00:54 WBC RBC Hgb Hct MCV MCH MCHC RDW Std Deviation RDW Coeff of [place]oki Plt Count MPV Immature Gran % (Auto) Neut % (Auto) Lymph % (Auto) [place] % (Auto) Eos % (Auto) Baso % (Auto) Absolute Neuts (auto) Absolute Lymphs (auto) Nucleated RBC % PT INR APTT Sodium Potassium Chloride Carbon Dioxide Anion Gap BUN Creatinine Estim Creat Clear Calc Est GFR (MDRD) Af Amer Est GFR (MDRD) Non-Af BUN/Creatinine Ratio Glucose Lactic Acid 1.2 Calcium Total Bilirubin AST ALT Alkaline Phosphatase Total Protein Albumin Globulin Albumin/Globulin Ratio Radiography Diagnostic Testing: Radiology Impression Chest X-Ray 04/28/21 00:01 IMPRESSION: Streaky perihilar opacities may represent pulmonary infiltrates. Electronically Signed: Rory Salas MD at 1:43 EDT Tel , Service support , Discharge Plan Triage Chief Complaint: Shortness of Breath Other Complaint: Fever ED Provider: Tyler Bergman Dx/Rx/DC Orders Clinical Impression: Bronchiectasis, Sinusitis, acute maxillary, Pneumonia Instructions: ED Pneumonia (Adult) Prescriptions: New amoxicillin-pot clavulanate [Augmentin] 875-125 mg tablet 1 tab PO BID Qty: 20 RF: 0 No Action cholecalciferol (vitamin D3) 50,000 unit capsule 50,000 unit PO FR RF: 0 pantoprazole 40 MG tablet 40 mg PO BID RF: 0 aspirin 81 MG tablet,chewable 162 mg PO DAILY RF: 0 lorazepam 0.5 MG tablet 0.5 mg PO BID PRN (Reason: ANXIETY) RF: 0 bupropion HCl 150 MG tablet extended release 24 hr 150 mg PO DAILY RF: 0 potassium chloride 20 MEQ tablet 20 meq PO DAILY RF: 0 montelukast 10 MG tablet 10 mg PO QHS RF: 0 furosemide 40 MG tablet 40 mg PO DAILY Qty: 0 RF: 0 acetaminophen 650 MG tablet extended release 650 mg PO Q6H PRN (Reason: BACK PAIN) RF: 0 warfarin 2.5 MG tablet 4.5 mg PO WEFR RF: 0 warfarin 3 MG tablet 3 mg PO SUMOTUTHSA RF: 0 famotidine 20 mg tablet 20 mg PO DAILY RF: 0 paroxetine HCl 20 mg tablet 20 mg PO DAILY RF: 0 gabapentin 100 mg capsule 100 mg PO QHS RF: 0 triamcinolone acetonide [Nasacort] 55 mcg Aerosol,[place] 1 spray INTRANASAL DAILY RF: 0 metoprolol succinate 50 mg tablet extended release 24 hr 50 mg PO DAILY Qty: 90 RF: 3 pravastatin 80 mg tablet 80 mg PO QHS Qty: 90 RF: 3 amiodarone 200 mg tablet 100 mg PO DAILY Qty: 45 RF: 3 ezetimibe [Zetia] 10 mg tablet 10 mg PO DAILY Qty: 90 RF: 3 albuterol sulfate [ProAir HFA] 90 mcg/actuation HFA aerosol inhaler 2 puff INHALATION Q4H PRN (Reason: shortness of breath or wheezing) Qty: 18 RF: 6 budesonide-formoterol 160-4.5 mcg/actuation HFA aerosol inhaler 2 inh INHALATION BID Qty: 10.2 RF: 6 Primary Care Provider: Harley Cornejo Referrals: Harley Cornejo MD [Primary Care Provider] - 3-5 Days if not improving Disposition Disposition: Home, Self Care
[2021-04-28] MEDS: Ipratropium/Albuterol Sulfate 3 ML AMPUL.NEB INHALATION (00:57)
[2021-04-28 00:58] VITALS: PULSE 79; RESP 16
[2021-04-28] MEDS: Acetaminophen 500 MG Tablet 1000 MG PO (01:05)
[2021-04-28 01:07] LABS: Absolute Neutrophil Count 11.8 X10^3/uL (2.0-7.7); Basophil# 0.06 X10^3/uL; Basophil% 0.4 % (0-1); Eosinophil# 0.12 X10^3/uL; Eosinophils% 0.9 % (0-5); Hematocrit 45.8 % (37-47); Hemoglobin 13.7 g/dL (12.0-15.0); Lymphocyte % 5.2 % (19-41); Mean Corp Hgb Conc 29.9 g/dL (32-36); Mean Corpuscular Hgb 26.1 pg (27.0-32.0); Mean Corpuscular Volume 87.4 fL (81-99); Mean Platelet Vol. 9.9 fl (6.2-12.0); Monocyte# 0.71 X10^3/uL; Monocyte% 5.3 % (0-10); NRBC Flagged by Analyzer 0 % (0-5); Neutrophil # 11.75 X10^3/uL (2.7-7.7); Neutrophil % 87.8 % (47-70); Platelet Count 290 K/mm3 (150-450); RBC Distribution Width CV 16.8 % (11.6-14.6); RBC Distribution Width SD 52.4 fl (35.1-43.9); Red Blood Count 5.24 M/mm3 (4.2-5.4); White Blood Count 13.4 K/mm3 (4.4-11.0)
[2021-04-28 01:18] LABS: International Normalized Ratio 2.6; Prothrombin Time (Protime)PT. 27.4 SECONDS (11.7-14.9)
[2021-04-28 01:19] LABS: Partial Thromboplast Time 44.6 Seconds (24.1-36.2)
[2021-04-28 01:24] LABS: ALB/GLOB Ratio 0.8 RATIO (0.9-2.4); AST(SGOT) 18 U/L (15-37); Alanine Aminotransfer ALT/SGPT 18 U/L (13-56); Albumin, Serum 3.2 g/dL (3.2-5.0); Alkaline Phosphatase 87 U/L (45-117); Anion Gap 6 (5-15); BUN 13 mg/dL (7-18); BUN/Creat Ratio 12.1 RATIO (10-20); Calcium,Total 9.5 mg/dL (8.5-10.1); Chloride 106 mmol/L (98-107); Creatinine, Serum 1.07 mg/dL (0.55-1.02); EST Glomerular Filtration Rate 53 mL/min (>60); Est Glom Filt Rate - Afr Amer 64 mL/min (>60); Estimated Creatinine Clearance 40.25 ml/min; Glucose 102 mg/dL (74-106); Potassium 3.9 mmol/L (3.5-5.1); Protein, Total 7.2 g/dL (6.4-8.2); Sodium Level 142 mmol/L (136-145)
[2021-04-28 01:25] LABS: Lactic Acid 1.2 mmol/L (0.4-1.9)
[2021-04-28 02:12] VITALS: BP 160/65; PULSE 66; RESP 25; O2SAT 94
[2021-04-28 02:48] VITALS: BP 135/65; PULSE 69; RESP 15; O2SAT 93
[2021-04-28] MEDS: Amox/Clavulanate 875 MG Tablet PO (02:58)
== END 2021-04-28 03:02 | disposition home or self-care (01) ==
PROVIDERS: Emergency Provider Emergency Medicine; PCP Family Medicine
DX: J47.0 Bronchiectasis with acute lower respiratory infection (principal); J18.9 Pneumonia, unspecified organism; J01.00 Acute maxillary sinusitis, unspecified; K21.9 Gastro-esophageal reflux disease without esophagitis; K44.9 Diaphragmatic hernia without obstruction or gangrene; I25.10 Atherosclerotic heart disease of native coronary artery without angina pectoris; J45.909 Unspecified asthma, uncomplicated; E78.5 Hyperlipidemia, unspecified; F32.9 Major depressive disorder, single episode, unspecified; F41.9 Anxiety disorder, unspecified; I11.0 Hypertensive heart disease with heart failure; I50.32 Chronic diastolic (congestive) heart failure; Z79.01 Long term (current) use of anticoagulants; Z79.1 Long term (current) use of non-steroidal anti-inflammatories (NSAID); Z79.82 Long term (current) use of aspirin; Z95.2 Presence of prosthetic heart valve
CPT/HCPCS: 71045; 80053; 83605; 85025; 85610; 85730; 87040; 87426; 94640; 94760; 99285; A4216

== ENCOUNTER 2021-05-21 16:36 | Emergency (ER) | payer MEDICARE, OTHER, SELFPAY ==
[2021-05-21] VITALS (10 sets, daily range): BP systolic 127–163; BP diastolic 66–89; PULSE 70–80; RESP 14–24; TEMP 36.9; O2SAT 89–97; BMI 27.6
--- NOTE | 2021-05-21 16:40 | RAD_ITS ---
STUDY: X-RAY CHEST REASON FOR EXAM: Female, 75 years old. WHEEZING COUGH TECHNIQUE: AP COMPARISON: 04/28/2021 FINDINGS: EKG leads project over the chest. Right hemidiaphragm is elevated. No airspace consolidation. There is no demonstrated pleural abnormality. Normal size heart. Sternal wires and mediastinal surgical clips compatible with prior CABG. Normal mediastinum and chica. Normal visualized pulmonary arteries. There is atherosclerotic calcification of the aortic arch with tortuosity. No acute bony process. Large hiatal hernia. RAD/Chest 1 View (Portable) IMPRESSION: 1. Stable, nonacute portable x-ray examination of the chest. Electronically Signed: Ben Aguila MD ([place]) at 17:15 EDT , Service support ,
--- NOTE | 2021-05-21 17:22 | EDS_ITS ---
HPI History of Present Illness Chief Complaint: Shortness of Breath Informant: patient and family Narrative Narrative: 75-year-old female presents to the emergency room with dyspnea and cough. Patient states symptoms have worsened over the past 2 to 3 days. She n otes a history of prior partial lung resection as well as bronchiectasis. She follows with Dr. Johnson from pulmonary. She chronically wears oxygen but usually at night but has the ability to wear it during the day if needed. Patient notes a change in sputum production and notes some blood streaks. She is on Coumadin. She has a history of a mechanical aortic valve replacement as well as A. fib. Patient notes she did have a temperature couple days ago of 100.7. She notes wheezing that began today. [facility] Medical History (Updated 05/21/21 @ 19:[address] 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 aortic valve regurgitation Nonspecific chest pain Obesity Palpitations Severe sepsis Syncope and collapse Home Medications pantoprazole 40 mg PO BID 01/14/15 [History Last Taken 07/07/20] bupropion HCl 150 mg PO DAILY 11/15/15 [History Last Taken 07/07/20] montelukast 10 mg PO QHS 05/03/17 [History Last Taken 07/06/20] potassium chloride 20 meq PO DAILY 05/03/17 [History Last Taken 07/06/20] aspirin 81 mg chewable tablet 162 mg PO DAILY tab 09/04/17 [History Last Taken 07/07/20] lorazepam 0.5 mg tablet 0.5 mg PO BID PRN 09/04/17 [History Last Taken 07/07/20] furosemide 40 mg PO DAILY #0 12/06/17 [Rx Last Taken 07/06/20] cholecalciferol (vitamin D3) 1,250 mcg (50,000 unit) capsule 50,000 unit PO FR 06/16/19 [History Last Taken 06/25/20] metoprolol succinate 50 mg tablet,extended release 24 hr 50 mg PO DAILY #90 tab 07/06/20 [Rx Last Taken 07/06/20] acetaminophen 650 mg PO Q6H PRN 07/07/20 [History Last Taken 07/07/20] pravastatin 80 mg tablet 80 mg PO QHS #90 tab 07/27/20 [Rx Last Taken Unknown] amiodarone 200 mg tablet 100 mg PO DAILY #45 tab 08/02/20 [Rx Last Taken Unknown] ezetimibe 10 mg tablet 10 mg PO DAILY #90 tab 09/20/20 [Rx Last Taken Unknown] warfarin 3 mg PO SUMOTUTHSA 09/30/20 [History Last Taken Unknown] warfarin 4.5 mg PO WEFR 09/30/20 [History Last Taken Unknown] albuterol sulfate 90 mcg/actuation aerosol inhaler 2 puff INHALATION Q4H PRN #18 g 01/25/21 [Rx Last Taken Unknown] budesonide-formoterol HFA 160 mcg-4.5 mcg/actuation aerosol inhaler 2 inh INHALATION BID #10.2 g 03/09/21 [Rx Last Taken Unknown] famotidine 20 mg PO DAILY 03/26/21 [History Last Taken Unknown] gabapentin 100 mg PO QHS 03/26/21 [History Last Taken Unknown] paroxetine HCl 20 mg PO DAILY 03/26/21 [History Last Taken Unknown] triamcinolone acetonide [Nasacort] 1 spray INTRANASAL DAILY 03/26/21 [History Last Taken Unknown] albuterol sulfate 2.5 mg INHALATION Q4H PRN #25 vial 05/21/21 [Rx Last Taken Unknown] doxycycline monohydrate 100 mg PO BID #14 capsule 05/21/21 [Rx Last Taken Unknown] prednisone 40 mg PO DAILY #10 tablet 05/21/21 [Rx Last Taken Unknown] Allergy/AdvReac Type Severity Reaction Status Date / Time donepezil Allergy Severe shortness Verified 05/21/21 17:14 of breath Sulfa (Sulfonamide Allergy Swelling Verified 05/21/21 17:14 Antibiotics) celecoxib [From Celebrex] AdvReac Severe Swelling Verified 05/21/21 17:14 dextromethorphan AdvReac Severe hallucinati Verified 05/21/21 17:14 [From Delsym] on adhesive AdvReac blisters Verified 05/21/21 17:14 codeine AdvReac Itching Verified 05/21/21 17:14 levofloxacin [From Levaquin] AdvReac pain in Verified 05/21/21 17:14 legs and swelling lisinopril AdvReac cough Verified 05/21/21 17:14 oxycodone [Oxycodone] AdvReac Itching Verified 05/21/21 17:14 oxycodone HCl [From Percocet] AdvReac Itching Verified 05/21/21 17:14 Penicillins AdvReac heart Verified 05/21/21 17:14 palpitations prochlorperazine edisylate AdvReac Low blood Verified 05/21/21 17:14 [From Compazine] pressure prochlorperazine maleate AdvReac Low blood Verified 05/21/21 17:14 [From Compazine] pressure tramadol HCl [From Ultram] AdvReac Itching Verified 05/21/21 17:14 Family History Mother Arthritis CAD (coronary artery disease) Father Arthritis High cholesterol CAD (coronary artery disease) Sister Diabetes High cholesterol Hypertension Brother Diabetes High cholesterol Hypertension Surgical History H/O aortic valve replacement History of back surgery History of foot surgery History of hysterectomy History of mechanical aortic valve replacement (~10/07/13) History of sinus surgery Social History Smoking Status: Never smoker alcohol intake: never substance use type: does not use caffeine: Yes Type: coffee what type of physical activity do you participate in: none seatbelt use: always do you feel safe at home: Yes ROS ROS ED Constitutional Constitutional ED: Reports fever(s); Denies chills or weight loss Eyes Eyes: Denies change in vision or diplopia ENT ENT ED: Denies ear pain, rhinorrhea or sore throat Cardiovascular Cardiovascular: Denies chest pain, orthopnea, palpitations or racing heartbeat Respiratory/Chest Respiratory/Chest: Reports cough, dyspnea, dyspnea on exertion, sputum and other Details: Hemoptysis ; Denies orthopnea Gastrointestinal Gastrointestinal: Denies abdominal pain, diarrhea, nausea or vomiting Genitourinary Genitourinary ED: Denies dysuria, hematuria or urinary frequency Musculoskeletal Musculoskeletal: Denies arthralgias or myalgias Integumentary Denies abscess or rash Neurologic Neurologic: Denies headache(s) or weakness Psychiatric Psychiatric: Denies anxiety, depression, suicidal ideation or suicidal thoughts Endocrine Endocrinology: Denies polydipsia, polyphagia or polyuria Allergic/Immunologic Allergic/Immunologic ED: Denies mouth swelling, tongue swelling or urticaria EXAM Physical Exam Const Vital Signs: 05/21/21 16:36 05/21/21 16:46 05/21/21 16:48 Temperature 98.4 F Temperature Source Oral Pulse Rate 73 Respiratory Rate 24 H 24 H 22 H Respiratory Effort Respiratory Pattern Blood Pressure 142/89 H Blood Pressure Mean 106 Pulse Ox 90 89 95 Oxygen Delivery Method Room Air Room Air Nasal Cannula Oxygen Flow Rate (L/min) 2 05/21/21 17:14 05/21/21 17:35 05/21/21 17:43 Temperature Temperature Source Pulse Rate 71 72 Respiratory Rate 16 14 Respiratory Effort Respiratory Pattern Normal Blood Pressure 163/72 H Blood Pressure Mean 102 Pulse Ox 95 97 Oxygen Delivery Method Nasal Cannula Nasal Cannula Oxygen Flow Rate (L/min) 2 2 05/21/21 17:52 05/21/21 18:21 Temperature Temperature Source Pulse Rate 80 Respiratory Rate 20 H Respiratory Effort Short of Breath Respiratory Pattern Tachypnea Blood Pressure 145/66 H Blood Pressure Mean 92 Pulse Ox 96 Oxygen Delivery Method Nasal Cannula Nasal Cannula Oxygen Flow Rate (L/min) 2 2 Positive well nourished and well developed General Appearance ED: well developed HEENT Reports normocephalic, head/scalp atraumatic, TM's clear and moist mucous membranes atraumatic Tympanic Membrane ED: Yes TM's clear Eyes PERRL and EOMs intact bilaterally Neck no lymphadenopathy, supple and no JVD Resp normal respiratory effort Auscultation: rhonchi and wheezes Cardio regular rate, regular rhythm and no murmurs GI normal to inspection, nondistended, normoactive bowel sounds and non-tender Auscultation: normoactive bowel sounds Palpation: soft Back/Spine no CVA tenderness and normal ROM Extremity normal to inspection General Extremety ED: Negative for edema General Extremity: Negative for edema Neuro oriented x3 and CN's II-XII intact bilaterally Sensorium / Orientation: alert Motor Exam: strength 5/5 throughout Psych mental status grossly normal Mood & Affect: Negative for depressed or tearful Skin no rashes or lesions noted and no wounds MDM MDM MDM Narrative Medical decision making narrative: Interpretation of the chest x-ray is no acute process. White count is normal at 8.6. Lactic acid is normal. Creatinine 1.06. INR is therapeutic at 2.7. Patient received breathing treatments and Solu-Medrol repeat examination her lung sounds are significantly improved. She has a nebulizer machine at home but no solution. I will certainly write for some solution as well as placing her on prednisone and doxycycline. Patient to follow-up with her doctors as needed return if worsening or concerns Lab Data Labs: Laboratory Results - last 24 hr 05/21/21 05/21/21 05/21/21 17:30 17:30 17:30 WBC 8.6 RBC 4.90 Hgb 13.0 Hct 42.6 MCV 86.9 MCH 26.5 L MCHC 30.5 L RDW Std Deviation 47.1 H RDW Coeff of Loki 14.8 H Plt Count 298 MPV 10.2 Immature Gran % (Auto) 0.500 Neut % (Auto) 77.4 H Lymph % (Auto) 11.0 L [place] % (Auto) 8.7 Eos % (Auto) 1.9 Baso % (Auto) 0.5 Absolute Neuts (auto) 6.7 Absolute Lymphs (auto) 0.95 Nucleated RBC % 0 PT INR Sodium 142 Potassium 3.4 L Chloride 105 Carbon Dioxide 31.0 Anion Gap 6 BUN 15 Creatinine 1.06 H Estim Creat Clear Calc 35.71 Est GFR (MDRD) Af Amer 65 Est GFR (MDRD) Non-Af 54 L BUN/Creatinine Ratio 14.2 Glucose 81 Lactic Acid 1.0 Calcium 9.4 Total Bilirubin 0.40 AST 13 L ALT 15 Alkaline Phosphatase 74 Troponin I High Sens 13 Total Protein 6.8 Albumin 2.8 L Globulin 4.0 Albumin/Globulin Ratio 0.7 L 05/21/21 17:30 WBC RBC Hgb Hct MCV MCH MCHC RDW Std Deviation RDW Coeff of [place]oki Plt Count MPV Immature Gran % (Auto) Neut % (Auto) Lymph % (Auto) [place] % (Auto) Eos % (Auto) Baso % (Auto) Absolute Neuts (auto) Absolute Lymphs (auto) Nucleated RBC % PT 27.7 H INR 2.7 Sodium Potassium Chloride Carbon Dioxide Anion Gap BUN Creatinine Estim Creat Clear Calc Est GFR (MDRD) Af Amer Est GFR (MDRD) Non-Af BUN/Creatinine Ratio Glucose Lactic Acid Calcium Total Bilirubin AST ALT Alkaline Phosphatase Troponin I High Sens Total Protein Albumin Globulin Albumin/Globulin Ratio Radiography Diagnostic Testing: Clinical Impression(s) from Imaging Studies Chest X-Ray 05/21/21 16:40 IMPRESSION: 1. Stable, nonacute portable x-ray examination of the chest. Electronically Signed: Ben Aguila MD ([place]) at 17:15 EDT , Service support , EKG Initial EKG: Attestation: I personally reviewed and interpreted this EKG as follows: Comments: Normal sinus rhythm ventricular rate of 72 bpm Discharge Plan Triage Chief Complaint: Shortness of Breath ED Provider: Tyler Bergman Dx/Rx/DC Orders Clinical Impression: Bronchiectasis, Bronchospasm, acute Instructions: Bronchiectasis Dc Prescriptions: New albuterol sulfate 2.5 MG/3 ML solution for nebulization 2.5 mg inhalation Q4H PRN Qty: 25 RF: 0 prednisone 20 MG tablet 40 mg PO DAILY Qty: 10 RF: 0 doxycycline monohydrate 100 MG capsule 100 mg PO BID Qty: 14 RF: 0 No Action cholecalciferol (vitamin D3) 50,000 unit capsule 50,000 unit PO FR RF: 0 pantoprazole 40 MG tablet 40 mg PO BID RF: 0 aspirin 81 MG tablet,chewable 162 mg PO DAILY RF: 0 lorazepam 0.5 MG tablet 0.5 mg PO BID PRN (Reason: ANXIETY) RF: 0 bupropion HCl 150 MG tablet extended release 24 hr 150 mg PO DAILY RF: 0 potassium chloride 20 MEQ tablet 20 meq PO DAILY RF: 0 montelukast 10 MG tablet 10 mg PO QHS RF: 0 furosemide 40 MG tablet 40 mg PO DAILY Qty: 0 RF: 0 acetaminophen 650 MG tablet extended release 650 mg PO Q6H PRN (Reason: BACK PAIN) RF: 0 warfarin 2.5 MG tablet 4.5 mg PO WEFR RF: 0 warfarin 3 MG tablet 3 mg PO SUMOTUTHSA RF: 0 famotidine 20 mg tablet 20 mg PO DAILY RF: 0 paroxetine HCl 20 mg tablet 20 mg PO DAILY RF: 0 gabapentin 100 mg capsule 100 mg PO QHS RF: 0 triamcinolone acetonide [Nasacort] 55 mcg Aerosol,[employer] 1 spray INTRANASAL DAILY RF: 0 metoprolol succinate 50 mg tablet extended release 24 hr 50 mg PO DAILY Qty: 90 RF: 3 pravastatin 80 mg tablet 80 mg PO QHS Qty: 90 RF: 3 amiodarone 200 mg tablet 100 mg PO DAILY Qty: 45 RF: 3 ezetimibe [Zetia] 10 mg tablet 10 mg PO DAILY Qty: 90 RF: 3 albuterol sulfate [ProAir HFA] 90 mcg/actuation HFA aerosol inhaler 2 puff INHALATION Q4H PRN (Reason: shortness of breath or wheezing) Qty: 18 RF: 6 budesonide-formoterol 160-4.5 mcg/actuation HFA aerosol inhaler 2 inh INHALATION BID Qty: 10.2 RF: 6 Primary Care Provider: Harley Cornejo Referrals: Jeremy Johnson DO [STAFF PHYSICIAN] - Keep [facility] appointment Harley Cornejo MD [Primary Care Provider] - Disposition Disposition: Home, Self Care
[2021-05-21] MEDS: Ipratropium/Albuterol Sulfate 3 ML AMPUL.NEB INHALATION (17:35)
[2021-05-21] MEDS: Albuterol 2.5 MG/3 ML VIAL.NEB. INHALATION ×2 (17:35)
[2021-05-21 17:43] LABS: Absolute Lymphocyte Count 0.95 X10^3/uL (0.83-4.51); Absolute Neutrophil Count 6.7 X10^3/uL (2.0-7.7); Basophil# 0.04 X10^3/uL; Basophil% 0.5 % (0-1); Eosinophil# 0.16 X10^3/uL; Eosinophils% 1.9 % (0-5); Hematocrit 42.6 % (37-47); Lymphocyte # 0.95 X10^3/ul (0.83-4.51); Mean Corp Hgb Conc 30.5 g/dL (32-36); Mean Corpuscular Hgb 26.5 pg (27.0-32.0); Mean Corpuscular Volume 86.9 fL (81-99); Mean Platelet Vol. 10.2 fl (6.2-12.0); Monocyte# 0.75 X10^3/uL; Monocyte% 8.7 % (0-10); NRBC Flagged by Analyzer 0 % (0-5); Neutrophil # 6.69 X10^3/uL (2.7-7.7); Neutrophil % 77.4 % (47-70); Platelet Count 298 K/mm3 (150-450); RBC Distribution Width CV 14.8 % (11.6-14.6); RBC Distribution Width SD 47.1 fl (35.1-43.9); White Blood Count 8.6 K/mm3 (4.4-11.0)
[2021-05-21] MEDS: MethylPREDNISolone 125 MG/2 ML Vial IV (17:46)
[2021-05-21 17:51] LABS: International Normalized Ratio 2.7; Prothrombin Time (Protime)PT. 27.7 SECONDS (11.7-14.9)
[2021-05-21 18:00] LABS: ALB/GLOB Ratio 0.7 RATIO (0.9-2.4); AST(SGOT) 13 U/L (15-37); Alanine Aminotransfer ALT/SGPT 15 U/L (13-56); Albumin, Serum 2.8 g/dL (3.2-5.0); Alkaline Phosphatase 74 U/L (45-117); Anion Gap 6 (5-15); BUN 15 mg/dL (7-18); BUN/Creat Ratio 14.2 RATIO (10-20); Calcium,Total 9.4 mg/dL (8.5-10.1); Chloride 105 mmol/L (98-107); Creatinine, Serum 1.06 mg/dL (0.55-1.02); EST Glomerular Filtration Rate 54 mL/min (>60); Est Glom Filt Rate - Afr Amer 65 mL/min (>60); Estimated Creatinine Clearance 35.71 ml/min; Glucose 81 mg/dL (74-106); Potassium 3.4 mmol/L (3.5-5.1); Protein, Total 6.8 g/dL (6.4-8.2); Sodium Level 142 mmol/L (136-145); Troponin-I HS 13 pg/mL (3.0-54.0)
== END 2021-05-21 20:03 | disposition home or self-care (01) ==
PROVIDERS: Emergency Provider Emergency Medicine; PCP Family Medicine
DX: J47.9 Bronchiectasis, uncomplicated (principal); J45.909 Unspecified asthma, uncomplicated; Z95.2 Presence of prosthetic heart valve; Z90.2 Acquired absence of lung [part of]
CPT/HCPCS: 71045; 80053; 83605; 84484; 85025; 85610; 87040; 87426; 93005; 94640; 94760; 96374; 99285; A4216

== ENCOUNTER → 2021-06-07 10:55 | Outpatient (CLI) | payer MEDICARE, OTHER, SELFPAY ==
--- NOTE | 2021-06-07 10:57 | BI_ITS ---
MAMMOGRAPHY - BILATERAL SCREENING REASON FOR EXAM: Female, 75 years old. Routine annual screening examination. PERTINENT HISTORY: Aunt with breast cancer. TECHNIQUE: Digital bilateral breast chetna (3D mammographic acquisition) in the CC and MLO projections. 2-D mediolateral oblique (MLO) and craniocaudad (CC) views of both breasts were obtained. CAD: Full Field Digital Mammography with Computer Added Detection was performed. COMPARISON: Comparison is made with prior study dated 06/01/2020 and 05/12/2019. FINDINGS: Breast Composition: The breasts are heterogeneously dense, which may obscure small masses. There are no dominant masses or suspicious calcifications. Stable calcified nodule in the inferior medial aspect of the right breast. Stable 2.2 cm x 2.2 cm well-defined nodule in the inferior deep lateral aspect of the right breast. No other significant abnormalities are identified. There has been no significant change since the prior study. BI/SCRN MAMM (CAD)W/CHETNA BILAT IMPRESSION: Stable bilateral screening mammogram. Yearly follow-up mammogram recommended. (A) ASSESSMENT CATEGORY: BIRADS Category 2: Benign. A letter regarding these results will be sent to the patient by the facility within 30 days. Approximately 10% of breast cancers are not detected by mammography. A normal mammogram should not delay biopsy of a clinically suspicious abnormality. [id number] Electronically Signed: Jesse Abernathy MD at 13:12 EST , Service support ,
== END ==
PROVIDERS: PCP Family Medicine; Referring Provider Family Medicine; Visit Provider Family Medicine
DX: Z12.31 Encounter for screening mammogram for malignant neoplasm of breast (principal); Z80.3 Family history of malignant neoplasm of breast
CPT/HCPCS: 77063; 77067

== ENCOUNTER → 2021-06-13 12:34 | Outpatient (CLI) | payer MEDICARE, OTHER, SELFPAY ==
[2021-06-13 13:16] LABS: International Normalized Ratio 1.6; Prothrombin Time (Protime)PT. 18.7 SECONDS (11.7-14.9)
== END ==
PROVIDERS: PCP Family Medicine; Visit Provider Family Medicine
DX: I35.2 Nonrheumatic aortic (valve) stenosis with insufficiency (principal)
CPT/HCPCS: 85610

== ENCOUNTER 2021-08-08 21:05 | Emergency (ER) | payer MEDICARE, OTHER, SELFPAY ==
[2021-08-08 21:05] VITALS: BP 125/61; PULSE 86; RESP 18; TEMP 37.7; O2SAT 91; BMI 27.4
[2021-08-08 21:19] VITALS: BP 125/61; PULSE 86; RESP 18; TEMP 37.7; O2SAT 91
[2021-08-08 21:40] LABS: Bacteria 0 SEEN /hpf (None Seen); Mucous, Urine 0 SEEN /hpf (<or=2+)
[2021-08-08 21:43] LABS: Color, Urine Yellow (Yellow); Glucose, Dipstick Normal (Normal); Ketone-Dipstick Negative (Negative); Leukocyte Esterase-Dipstick 25 /ul (Negative); Nitrite-Dipstick Negative (Negative); Occult Blood-Urine 10 /ul (Negative); Protein-Dipstick Negative (Negative); Specific Gravity, Urine 1.015 (1.002-1.030); Urine Bilirubin Dipstick Negative (Negative); Urine Clarity Clear (Clear); Urine Urobilinogen Normal (Normal)
--- NOTE | 2021-08-08 21:43 | RAD_ITS ---
INDICATION: COUGH,FEVER EXAMINATION/TECHNIQUE: X-RAY - XR Chest 1 View COMPARISON: 05/21/2021. FINDINGS: Stable atelectasis in the left midlung. Lungs are otherwise clear. Sternal cerclage wires and vascular clips are present from a prior sternotomy and coronary artery bypass graft procedure (CABG). Tortuous and calcified thoracic aorta. The heart is mildly enlarged. Stable elevation of the right hemidiaphragm. No pleural effusion or pneumothorax. Diffuse degenerative changes of the spine. Large hiatal hernia. RAD/Chest 1 View (Portable) IMPRESSION: No acute radiographic abnormalities. Large hiatal hernia. Stable atelectasis in the left midlung. Electronically Signed: Reggie Main MD at 22:02 EST Tel , Service support ,
--- NOTE | 2021-08-08 21:57 | EDS_ITS ---
HPI History of Present Illness Chief Complaint: Fever Informant: patient and spouse/S.O. Narrative Narrative: 75-year-old female presented to the emergency room with fever and cough. Patient states she has a history of pneumonia (history of bronchiectasis, HERLINDA, allergic rhinitis). Patient states that she notes a left- sided headache chronic rhinorrhea myalgias cough. She is COVID vaccinated. She wears oxygen at night. [facility] Medical History (Updated 08/08/21 @ 23:[address] 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 Nonrheumatic aortic valve regurgitation Nonspecific chest pain Obesity Palpitations Severe sepsis Syncope and collapse Home Medications pantoprazole 40 mg PO BID 01/14/15 [History Last Taken 07/07/20] bupropion HCl 150 mg PO DAILY 11/15/15 [History Last Taken 07/07/20] montelukast 10 mg PO QHS 05/03/17 [History Last Taken 07/06/20] potassium chloride 20 meq PO DAILY 05/03/17 [History Last Taken 07/06/20] aspirin 81 mg chewable tablet 162 mg PO DAILY tab 09/04/17 [History Last Taken 07/07/20] lorazepam 0.5 mg tablet 0.5 mg PO BID PRN 09/04/17 [History Last Taken 07/07/20] furosemide 40 mg PO DAILY #0 12/06/17 [Rx Last Taken 07/06/20] cholecalciferol (vitamin D3) 1,250 mcg (50,000 unit) capsule 50,000 unit PO FR 06/16/19 [History Last Taken 06/25/20] acetaminophen 650 mg PO Q6H PRN 07/07/20 [History Last Taken 07/07/20] pravastatin 80 mg tablet 80 mg PO QHS #90 tab 07/27/20 [Rx Last Taken Unknown] amiodarone 200 mg tablet 100 mg PO DAILY #45 tab 08/02/20 [Rx Last Taken Unknown] ezetimibe 10 mg tablet 10 mg PO DAILY #90 tab 09/20/20 [Rx Last Taken Unknown] warfarin 3 mg PO SUMOTUTHSA 09/30/20 [History Last Taken Unknown] warfarin 4.5 mg PO WEFR 09/30/20 [History Last Taken Unknown] albuterol sulfate 90 mcg/actuation aerosol inhaler 2 puff INHALATION Q4H PRN #18 g 01/25/21 [Rx Last Taken Unknown] budesonide-formoterol HFA 160 mcg-4.5 mcg/actuation aerosol inhaler 2 inh INHALATION BID #10.2 g 03/09/21 [Rx Last Taken Unknown] famotidine 20 mg PO DAILY 03/26/21 [History Last Taken Unknown] gabapentin 100 mg PO QHS 03/26/21 [History Last Taken Unknown] paroxetine HCl 20 mg PO DAILY 03/26/21 [History Last Taken Unknown] albuterol sulfate 2.5 mg INHALATION Q4H PRN #25 vial 05/21/21 [Rx Last Taken Unknown] doxycycline monohydrate 100 mg PO BID #14 capsule 05/21/21 [Rx Last Taken Unknown] prednisone 40 mg PO DAILY #10 tablet 05/21/21 [Rx Last Taken Unknown] triamcinolone acetonide 55 mcg nasal spray aerosol 1 spray INTRANASAL DAILY #16.9 ml 06/10/21 [Rx Last Taken Unknown] metoprolol succinate 50 mg tablet,extended release 24 hr 50 mg PO DAILY #90 tab 07/21/21 [Rx Last Taken Unknown] doxycycline monohydrate 100 mg PO BID #19 capsule 08/08/21 [Rx Last Taken Unknown] Allergy/AdvReac Type Severity Reaction Status Date / Time donepezil Allergy Severe shortness Verified 06/29/21 12:59 of breath Sulfa (Sulfonamide Allergy Swelling Verified 06/29/21 12:59 Antibiotics) celecoxib [From Celebrex] AdvReac Severe Swelling Verified 06/29/21 12:59 dextromethorphan AdvReac Severe hallucinati Verified 06/29/21 12:59 [From Delsym] on adhesive AdvReac blisters Verified 06/29/21 12:59 codeine AdvReac Itching Verified 06/29/21 12:59 levofloxacin [From Levaquin] AdvReac pain in Verified 06/29/21 12:59 legs and swelling lisinopril AdvReac cough Verified 06/29/21 12:59 oxycodone [Oxycodone] AdvReac Itching Verified 06/29/21 12:59 oxycodone HCl [From Percocet] AdvReac Itching Verified 06/29/21 12:59 Penicillins AdvReac heart Verified 06/29/21 12:59 palpitations prochlorperazine edisylate AdvReac Low blood Verified 06/29/21 12:59 [From Compazine] pressure prochlorperazine maleate AdvReac Low blood Verified 06/29/21 12:59 [From Compazine] pressure tramadol HCl [From Ultram] AdvReac Itching Verified 06/29/21 12:59 Family History Mother Arthritis CAD (coronary artery disease) Father Arthritis High cholesterol CAD (coronary artery disease) Sister Diabetes High cholesterol Hypertension Brother Diabetes High cholesterol Hypertension Surgical History H/O aortic valve replacement History of back surgery History of foot surgery History of hysterectomy History of mechanical aortic valve replacement (~10/07/13) History of sinus surgery Social History Smoking Status: Never smoker alcohol intake: never substance use type: does not use caffeine: Yes Type: coffee what type of physical activity do you participate in: none seatbelt use: always do you feel safe at home: Yes ROS ROS ED Constitutional Constitutional ED: Reports chills and fever(s); Denies weight loss Eyes Eyes: Denies change in vision or diplopia ENT ENT ED: Denies ear pain, rhinorrhea or sore throat Cardiovascular Cardiovascular: Denies chest pain, orthopnea, palpitations or racing heartbeat Respiratory/Chest Respiratory/Chest: Reports cough and sputum; Denies dyspnea or orthopnea Gastrointestinal Gastrointestinal: Denies abdominal pain, diarrhea, nausea or vomiting Genitourinary Genitourinary ED: Denies dysuria, hematuria or urinary frequency Musculoskeletal Musculoskeletal: Reports myalgias; Denies arthralgias Integumentary Denies abscess or rash Neurologic Neurologic: Reports headache(s); Denies weakness Psychiatric Psychiatric: Denies anxiety, depression, suicidal ideation or suicidal thoughts Endocrine Endocrinology: Denies polydipsia, polyphagia or polyuria Allergic/Immunologic Allergic/Immunologic ED: Denies mouth swelling, tongue swelling or urticaria EXAM Physical Exam Const Vital Signs: 08/08/21 21:05 08/08/21 21:19 08/08/21 21:20 Temperature 99.9 F H 99.9 F H Temperature Source Oral Oral Pulse Rate 86 86 Respiratory Rate 18 18 Respiratory Effort Normal Non-Labored Respiratory Pattern Normal Blood Pressure 125/61 H 125/61 H Blood Pressure Mean 82 82 Pulse Ox 91 91 Oxygen Delivery Method Room Air Room Air 08/08/21 22:16 Temperature 98.7 F Temperature Source Axillary Pulse Rate 81 Respiratory Rate 18 Respiratory Effort Respiratory Pattern Blood Pressure 134/62 H Blood Pressure Mean 86 Pulse Ox 93 Oxygen Delivery Method Positive well nourished and well developed General Appearance ED: well developed HEENT Reports normocephalic, head/scalp atraumatic, TM's clear and moist mucous membranes HEENT Narrative: Mild turbinate edema with clear rhinorrhea Negative for trauma Tympanic Membrane ED: Yes TM's clear Eyes PERRL and EOMs intact bilaterally Neck no lymphadenopathy, supple and no JVD Resp normal respiratory effort Auscultation: rhonchi left lower Cardio regular rate, regular rhythm and no murmurs GI normal to inspection, nondistended, normoactive bowel sounds and non-tender Palpation: soft Back/Spine no CVA tenderness and normal ROM Extremity normal to inspection General Extremety ED: Negative for edema General Extremity: Negative for edema Neuro oriented x3 and CN's II-XII intact bilaterally Sensorium / Orientation: alert Motor Exam: strength 5/5 throughout Psych mental status grossly normal Mood & Affect: Negative for depressed or tearful Skin no rashes or lesions noted and no wounds MDM MDM MDM Narrative Medical decision making narrative: Potation of the chest x-ray is no acute process. Urinalysis is negative. COVID swab is negative influenza is negative. BUN of 22 with creatinine 1.24. White count is elevated 18.9. The patient and her state that she just finished a medication today was used for some pain and inflammation she was having in her leg but she is unsure of what that was. They are not sure if it was a steroid or not. Patient's not requiring any supplemental oxygen. We talked about that that she has a moist cough and rhonchorous lung sounds on the left. With a history of bronchiectasis. Cycling. She should continue her aerosols at home. Monitor for worsening return if worsening or concerns. Lab Data Attestation: I reviewed the patient's lab results. Labs: Laboratory Results - last 24 hr 08/08/21 08/08/21 08/08/21 21:24 21:39 21:39 WBC 18.9 H RBC 4.96 Hgb 14.2 Hct 42.7 MCV 86.1 MCH 28.6 MCHC 33.3 RDW Std Deviation 46.0 H RDW Coeff of [place] 14.6 Plt Count 257 MPV 10.9 Immature Gran % (Auto) 0.400 Neut % (Auto) 89.4 H Lymph % (Auto) 5.3 L [place] % (Auto) 4.4 Eos % (Auto) 0.1 Baso % (Auto) 0.4 Absolute Neuts (auto) 16.9 H Absolute Lymphs (auto) 1.00 Nucleated RBC % 0 PT INR Sodium 140 Potassium 3.6 Chloride 102 Carbon Dioxide 29.0 Anion Gap 9 BUN 22 H Creatinine 1.24 H Estim Creat Clear Calc 30.53 Est GFR (MDRD) Af Amer 54 L Est GFR (MDRD) Non-Af 45 L BUN/Creatinine Ratio 17.7 Glucose 99 Calcium 9.6 Urine Color Yellow Urine Clarity Clear Urine pH 5.0 Ur Specific [place] 1.015 Urine Protein Negative Urine Glucose (UA) Normal Urine Ketones Negative Urine Occult Blood 10 H Urine Nitrite Negative Urine Bilirubin Negative Urine Urobilinogen Normal Ur Leukocyte Esterase 25 H Urine RBC 0-5 SEEN Urine WBC 0-5 SEEN Ur Squamous Epith Cells 0-5 SEEN Urine Bacteria 0 SEEN Urine Mucus 0 SEEN 08/08/21 21:39 WBC RBC Hgb Hct MCV MCH MCHC RDW Std Deviation RDW Coeff of [place] Plt Count MPV Immature Gran % (Auto) Neut % (Auto) Lymph % (Auto) [place] % (Auto) Eos % (Auto) Baso % (Auto) Absolute Neuts (auto) Absolute Lymphs (auto) Nucleated RBC % PT 28.1 H INR 2.7 Sodium Potassium Chloride Carbon Dioxide Anion Gap BUN Creatinine Estim Creat Clear Calc Est GFR (MDRD) Af Amer Est GFR (MDRD) Non-Af BUN/Creatinine Ratio Glucose Calcium Urine Color Urine Clarity Urine pH Ur Specific [place] Urine Protein Urine Glucose (UA) Urine Ketones Urine Occult Blood Urine Nitrite Urine Bilirubin Urine Urobilinogen Ur Leukocyte Esterase Urine RBC Urine WBC Ur Squamous Epith Cells Urine Bacteria Urine Mucus Radiography Diagnostic Testing: Clinical Impression(s) from Imaging Studies Chest X-Ray 08/08/21 21:43 IMPRESSION: No acute radiographic abnormalities. Large hiatal hernia. Stable atelectasis in the left midlung. Electronically Signed: Reggie Main MD at 22:02 EST Tel , Service support , Discharge Plan Triage Chief Complaint: Fever ED Provider: Tyler Bergman Dx/Rx/DC Orders Clinical Impression: Bronchiectasis, Acute febrile illness, Acute bronchitis Instructions: Acute Bronchitis Prescriptions: New doxycycline monohydrate 100 MG capsule 100 mg PO BID Qty: 19 RF: 0 No Action cholecalciferol (vitamin D3) 50,000 unit capsule 50,000 unit PO FR RF: 0 pantoprazole 40 MG tablet 40 mg PO BID RF: 0 aspirin 81 MG tablet,chewable 162 mg PO DAILY RF: 0 lorazepam 0.5 MG tablet 0.5 mg PO BID PRN (Reason: ANXIETY) RF: 0 bupropion HCl 150 MG tablet extended release 24 hr 150 mg PO DAILY RF: 0 potassium chloride 20 MEQ tablet 20 meq PO DAILY RF: 0 montelukast 10 MG tablet 10 mg PO QHS RF: 0 furosemide 40 MG tablet 40 mg PO DAILY Qty: 0 RF: 0 acetaminophen 650 MG tablet extended release 650 mg PO Q6H PRN (Reason: BACK PAIN) RF: 0 warfarin 2.5 MG tablet 4.5 mg PO WEFR RF: 0 warfarin 3 MG tablet 3 mg PO SUMOTUTHSA RF: 0 famotidine 20 mg tablet 20 mg PO DAILY RF: 0 paroxetine HCl 20 mg tablet 20 mg PO DAILY RF: 0 gabapentin 100 mg capsule 100 mg PO QHS RF: 0 albuterol sulfate 2.5 MG/3 ML solution for nebulization 2.5 mg inhalation Q4H PRN Qty: 25 RF: 0 prednisone 20 MG tablet 40 mg PO DAILY Qty: 10 RF: 0 doxycycline monohydrate 100 MG capsule 100 mg PO BID Qty: 14 RF: 0 pravastatin 80 mg tablet 80 mg PO QHS Qty: 90 RF: 3 amiodarone 200 mg tablet 100 mg PO DAILY Qty: 45 RF: 3 ezetimibe [Zetia] 10 mg tablet 10 mg PO DAILY Qty: 90 RF: 3 albuterol sulfate [ProAir HFA] 90 mcg/actuation HFA aerosol inhaler 2 puff INHALATION Q4H PRN (Reason: shortness of breath or wheezing) Qty: 18 RF: 6 budesonide-formoterol 160-4.5 mcg/actuation HFA aerosol inhaler 2 inh INHALATION BID Qty: 10.2 RF: 6 triamcinolone acetonide [Nasacort] 55 mcg aerosol,spray 1 spray INTRANASAL DAILY Qty: 16.9 RF: 6 metoprolol succinate 50 mg tablet extended release 24 hr 50 mg PO DAILY Qty: 90 RF: 3 Primary Care Provider: Harley Cornejo Referrals: Harley Cornejo MD [Primary Care Provider] - 3-5 Days if not improving Activity Restrictions/Additional Instructions: Your INR tonight is 2.7. Disposition Disposition: Home, Self Care
[2021-08-08 21:58] LABS: Red Blood Cells-Urine 0-5 SEEN /hpf (0-5); Squamous Epithelial Cells - UA 0-5 SEEN /hpf (5-10); White Blood Cells 0-5 SEEN /hpf (0-5)
[2021-08-08 22:10] LABS: Absolute Neutrophil Count 16.9 X10^3/uL (2.0-7.7); Basophil# 0.07 X10^3/uL; Basophil% 0.4 % (0-1); Eosinophil# 0.02 X10^3/uL; Eosinophils% 0.1 % (0-5); Hematocrit 42.7 % (37-47); Hemoglobin 14.2 g/dL (12.0-15.0); Lymphocyte % 5.3 % (19-41); Mean Corp Hgb Conc 33.3 g/dL (32-36); Mean Corpuscular Hgb 28.6 pg (27.0-32.0); Mean Corpuscular Volume 86.1 fL (81-99); Mean Platelet Vol. 10.9 fl (6.2-12.0); Monocyte# 0.84 X10^3/uL; Monocyte% 4.4 % (0-10); NRBC Flagged by Analyzer 0 % (0-5); Neutrophil % 89.4 % (47-70); Platelet Count 257 K/mm3 (150-450); RBC Distribution Width CV 14.6 % (11.6-14.6); Red Blood Count 4.96 M/mm3 (4.2-5.4); White Blood Count 18.9 K/mm3 (4.4-11.0)
[2021-08-08 22:16] VITALS: BP 134/62; PULSE 81; RESP 18; TEMP 37.1; O2SAT 93
[2021-08-08 22:18] LABS: Anion Gap 9 (5-15); BUN 22 mg/dL (7-18); BUN/Creat Ratio 17.7 RATIO (10-20); Calcium,Total 9.6 mg/dL (8.5-10.1); Chloride 102 mmol/L (98-107); Creatinine, Serum 1.24 mg/dL (0.55-1.02); EST Glomerular Filtration Rate 45 mL/min (>60); Est Glom Filt Rate - Afr Amer 54 mL/min (>60); Estimated Creatinine Clearance 30.53 ml/min; Glucose 99 mg/dL (74-106); Potassium 3.6 mmol/L (3.5-5.1); Sodium Level 140 mmol/L (136-145)
[2021-08-08] MEDS: Ketorolac 15 MG/ML Vial IV (22:34)
[2021-08-08 22:50] LABS: International Normalized Ratio 2.7; Prothrombin Time (Protime)PT. 28.1 SECONDS (11.7-14.9)
[2021-08-08 23:50] VITALS: BP 134/71; PULSE 67; RESP 15; O2SAT 97
[2021-08-08] MEDS: Doxycycline 100 MG CAPSULE PO (23:50)
== END 2021-08-08 23:51 | disposition home or self-care (01) ==
PROVIDERS: Emergency Provider Emergency Medicine; PCP Family Medicine; Visit Provider Emergency Medicine
DX: J47.0 Bronchiectasis with acute lower respiratory infection (principal); I11.0 Hypertensive heart disease with heart failure; I50.32 Chronic diastolic (congestive) heart failure; I71.2 Thoracic aortic aneurysm, without rupture; I48.20 Chronic atrial fibrillation, unspecified; I25.10 Atherosclerotic heart disease of native coronary artery without angina pectoris; E78.5 Hyperlipidemia, unspecified; I35.0 Nonrheumatic aortic (valve) stenosis; Z79.01 Long term (current) use of anticoagulants; F32.A Depression, unspecified; K21.9 Gastro-esophageal reflux disease without esophagitis; Z86.19 Personal history of other infectious and parasitic diseases; Z79.82 Long term (current) use of aspirin; Z79.899 Other long term (current) drug therapy; Z95.2 Presence of prosthetic heart valve
CPT/HCPCS: 71045; 80048; 81001; 85025; 85610; 87426; 87635; 87804; 96374; 99285; A4216; U0003; U0005

== ENCOUNTER → 2021-09-18 | Emergency (ER) | payer MEDICARE, OTHER, SELFPAY ==
[2021-09-18 13:19] VITALS: BP 171/105; PULSE 73; RESP 15; TEMP 36; O2SAT 98; BMI 29.5
--- NOTE | 2021-09-18 13:43 | RAD_ITS ---
STUDY: X-RAY - LUMBAR SPINE REASON FOR EXAM: Female, 75 years old. fall pain after trauma TECHNIQUE: 4 view(s) of the lumbar spine were obtained. COMPARISON: None FINDINGS: Examination is technically limited due to combination of patient''s osteoporosis, spondylosis and scoliosis. This results in suboptimal visualization of demineralized bone structures and overlap between different bones making accurate diagnosis difficult. Some general diagnostic information is available. Additional imaging is needed. Lateral alignment is preserved with moderate upper lumbar levoscoliosis. There are compression fractures of T11 and L1, unclear age. There is diffuse spondylosis. SI joints are intact. Sacrum is obscured by stool and gas. There are mild calcific lesions in the aorta. Otherwise included soft tissue shadows are unremarkable. RAD/L/S Spine Min 4 Views IMPRESSION: T11 and L1 compression fractures of unknown age. Refer to CT. Otherwise limited exam with osteoporosis, spondylosis and scoliosis. Electronically Signed: Charli Zamorano MD at 14:56 EST ,
--- NOTE | 2021-09-18 13:43 | CT_ITS ---
ACR Level 3 findings have been noted. An addendum which confirms receipt of the report will follow. STUDY: CT BRAIN WITHOUT CONTRAST REASON FOR EXAM: Female, 75 years old. Fall on anticoagulation hypertension RADIATION DOSAGE (If Supplied By Facility): CTDIvol = ( 47.06 ) mGy, DLP = ( 837.39 ) mGycm TECHNIQUE: Transaxial CT imaging of the brain was performed without administration of intravenous contrast material. Individualized dose optimization techniques were used for this CT. COMPARISON: 20 November 2020 FINDINGS: There is a small, less than centimeter mildly hyperdense left frontal perpendicular periventricular white matter focus, possibly small hemorrhage. There is mild subcortical and peripheral multifocal white matter hypodensity. There are no extra strength no fluid collections, hydrocephalus or herniation. The skull is intact with mucus in the paranasal sinuses and prior central/ethmoid decompressions. CT/Brain/Head without Contrast IMPRESSION: 1. 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 Recommend confirmation with short-term CT or MR. Electronically Signed: Charli Zamorano MD at 14:46 EST ,
--- NOTE | 2021-09-18 13:43 | RAD_ITS ---
STUDY: X-RAY - SACRUM/COCCYX REASON FOR EXAM: Female, 75 years old. fall TECHNIQUE: 2 view(s) of the sacrum and coccyx were obtained. COMPARISON: None. FINDINGS: Examination is technically limited due to variety of factors, including patient''s condition, osteoporosis and overlapping osseous structures and obscuring colonic stool. Reliable diagnostic information is not possible and fracture can be missed. Hips are located. There are degenerative changes in the lumbar spine and levoscoliosis. RAD/Sacrum-Coccyx min 2 Views IMPRESSION: Limited exam. Refer to CT pelvis for definitive evaluation in an older/osteoporotic adult. Electronically Signed: Charli Zamorano MD at 14:54 EST ,
--- NOTE | 2021-09-18 14:28 | EX.ED.GENINJ ---
HPI History of Present Illness Chief Complaint: Fall Informant: patient and spouse/S.O. Narrative Narrative: Patient is a 75-year-old female with history of emphysema, mechanical valve on chronic Coumadin therapy and some chronic back pain presenting after mechanical fall. Patient was in the kitchen trying to trim strings off of the road when she stood up. She lost her balance and then fell. She landed on her buttocks and then hit her head. She denies any loss of consciousness. She is complaining of low back pain and came in for further evaluation. She last had her INR checked on , 09/15 and states it was 4.0. She denies any bleeding that she is aware of. No other complaints at this time. No reported nausea or vomiting. [facility] Medical History (Updated 09/18/21 @ 15:[address] 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 Nonrheumatic aortic valve regurgitation Nonspecific chest pain Obesity Palpitations Severe sepsis Syncope and collapse Home Medications pantoprazole 40 mg PO BID 01/14/15 [History Last Taken 07/07/20] bupropion HCl 150 mg PO DAILY 11/15/15 [History Last Taken 07/07/20] montelukast 10 mg PO QHS 05/03/17 [History Last Taken 07/06/20] potassium chloride 20 meq PO DAILY 05/03/17 [History Last Taken 07/06/20] aspirin 81 mg chewable tablet 162 mg PO DAILY tab 09/04/17 [History Last Taken 07/07/20] lorazepam 0.5 mg tablet 0.5 mg PO BID PRN 09/04/17 [History Last Taken 07/07/20] furosemide 40 mg PO DAILY #0 12/06/17 [Rx Last Taken 07/06/20] cholecalciferol (vitamin D3) 1,250 mcg (50,000 unit) capsule 50,000 unit PO FR 06/16/19 [History Last Taken 06/25/20] acetaminophen 650 mg PO Q6H PRN 07/07/20 [History Last Taken 07/07/20] ezetimibe 10 mg tablet 10 mg PO DAILY #90 tab 09/20/20 [Rx Last Taken Unknown] warfarin 3 mg PO SUMOTUTHSA 09/30/20 [History Last Taken Unknown] warfarin 4.5 mg PO WEFR 09/30/20 [History Last Taken Unknown] albuterol sulfate 90 mcg/actuation aerosol inhaler 2 puff INHALATION Q4H PRN #18 g 01/25/21 [Rx Last Taken Unknown] famotidine 20 mg PO DAILY 03/26/21 [History Last Taken Unknown] gabapentin 100 mg PO QHS 03/26/21 [History Last Taken Unknown] paroxetine HCl 20 mg PO DAILY 03/26/21 [History Last Taken Unknown] albuterol sulfate 2.5 mg INHALATION Q4H PRN #25 vial 05/21/21 [Rx Last Taken Unknown] triamcinolone acetonide 55 mcg nasal spray aerosol 1 spray INTRANASAL DAILY #16.9 ml 06/10/21 [Rx Last Taken Unknown] metoprolol succinate 50 mg tablet,extended release 24 hr 50 mg PO DAILY #90 tab 07/21/21 [Rx Last Taken Unknown] amiodarone 200 mg tablet 100 mg PO DAILY #45 tab 08/19/21 [Rx Last Taken Unknown] pravastatin 80 mg tablet 80 mg PO QHS #90 tab 08/19/21 [Rx Last Taken Unknown] budesonide-formoterol HFA 160 mcg-4.5 mcg/actuation aerosol inhaler 2 inh INHALATION BID #10.2 g 09/07/21 [Rx Last Taken Unknown] tiotropium bromide 2.5 mcg/actuation mist for inhalation 2 puff INHALATION QDAY #3 ea 09/07/21 [Rx Last Taken Unknown] Allergy/AdvReac Type Severity Reaction Status Date / Time donepezil Allergy Severe shortness Verified 09/18/21 13:19 of breath Sulfa (Sulfonamide Allergy Swelling Verified 09/18/21 13:19 Antibiotics) celecoxib [From Celebrex] AdvReac Severe Swelling Verified 09/18/21 13:19 dextromethorphan AdvReac Severe hallucinati Verified 09/18/21 13:19 [From Delsym] on adhesive AdvReac blisters Verified 09/18/21 13:19 codeine AdvReac Itching Verified 09/18/21 13:19 levofloxacin [From Levaquin] AdvReac pain in Verified 09/18/21 13:19 legs and swelling lisinopril AdvReac cough Verified 09/18/21 13:19 oxycodone [Oxycodone] AdvReac Itching Verified 09/18/21 13:19 oxycodone HCl [From Percocet] AdvReac Itching Verified 09/18/21 13:19 Penicillins AdvReac heart Verified 09/18/21 13:19 palpitations prochlorperazine edisylate AdvReac Low blood Verified 09/18/21 13:19 [From Compazine] pressure prochlorperazine maleate AdvReac Low blood Verified 09/18/21 13:19 [From Compazine] pressure tramadol HCl [From Ultram] AdvReac Itching Verified 09/18/21 13:19 Family History Mother Arthritis CAD (coronary artery disease) Father Arthritis High cholesterol CAD (coronary artery disease) Sister Diabetes High cholesterol Hypertension Brother Diabetes High cholesterol Hypertension Surgical History H/O aortic valve replacement History of back surgery History of foot surgery History of hysterectomy History of mechanical aortic valve replacement (~10/07/13) History of sinus surgery Social History Smoking Status: Never smoker alcohol intake: never substance use type: does not use caffeine: Yes Type: coffee what type of physical activity do you participate in: none seatbelt use: always do you feel safe at home: Yes ROS ROS ED Constitutional Constitutional ED: Denies chills or fever(s) Eyes Eyes: Denies blurry vision or change in vision ENT ENT ED: Denies ear pain or sore throat Cardiovascular Cardiovascular: Denies chest pain or palpitations Respiratory/Chest Respiratory/Chest: Denies dyspnea Gastrointestinal Gastrointestinal: Denies abdominal pain, nausea or vomiting Musculoskeletal Musculoskeletal: Reports back pain; Denies arthralgias, myalgias or neck pain Integumentary Denies rash Neurologic Neurologic: Reports headache(s); Denies weakness Psychiatric Psychiatric: Denies depression EXAM Physical Exam Const Vital Signs: 09/18/21 13:19 09/18/21 15:14 09/18/21 15:22 Temperature 96.8 F L Temperature Source Temporal Pulse Rate 73 75 Respiratory Rate 15 15 Respiratory Effort Normal Non-Labored Respiratory Depth Normal Respiratory Pattern Normal Blood Pressure 171/105 H 173/77 H Blood Pressure Mean 127 109 Pulse Ox 98 94 Oxygen Delivery Method Room Air Room Air 09/18/21 16:09 Temperature Temperature Source Pulse Rate 75 Respiratory Rate 18 Respiratory Effort Respiratory Depth Respiratory Pattern Blood Pressure 155/66 H Blood Pressure Mean 95 Pulse Ox 95 Oxygen Delivery Method Positive well nourished and well developed General Appearance ED: well developed and NAD HEENT Reports TM's clear HEENT Narrative: No hemotympanum, no septal hematoma. No signs of head trauma. No cephalhematoma atraumatic Tympanic Membrane ED: Yes TM's clear Eyes PERRL and EOMs intact bilaterally Neck full ROM General: Negative for tenderness Chest Wall inspection of chest normal Resp normal respiratory effort and clear to auscultation bilaterally Cardio regular rhythm Jugular Venous Distention: other Other Details: Positive murmur Rate: regular rate GI normal to inspection, nondistended, normoactive bowel sounds and non-tender Palpation: soft Back/Spine Back/Spine Narrative: Patient is significant tenderness with palpation of the coccyx. No obvious deformity or step-off. Extremity normal to inspection and full ROM Extremity Narrative: Tenderness with palpation of the pelvis but the pelvis itself feels stable. No obvious deformity of the lower extremities. General Extremety ED: Negative for deformity or edema General Extremity: Negative for deformity or edema Neuro oriented x3, CN's II-XII intact bilaterally, moves all extremities, no focal motor deficits and no sensory deficits noted Sensorium / Orientation: alert Skin no rashes or lesions noted and no wounds MDM MDM MDM Narrative Medical decision making narrative: Evaluated after mechanical fall. As she is on Coumadin and did hit her head as well. CT of the brain obtained as well as x-ray of the lumbar spine and sacrum/coccyx. This was placed in triage. INR will be checked. CT of the brain is concerning for small acute area of hemorrhage in the frontal lobe. Will check INR and reverse as indicated. Patient remains hemodynamically stable. Her blood pressure is elevated at in the 170 systolic. Will give a dose of hydralazine for further blood pressure control. Patient accepted by Dr. Cordoba at [facility] emergency room. Patient's INR came back at 3.0. Transfer will be here within 5 minutes and will take 20 minutes for the pharmacy to compound August. Do not want to delay transfer to give it. [facility] is informed of this finding. Lab Data Labs: Laboratory Results - last 24 hr 09/18/21 09/18/21 09/18/21 15:10 15:10 15:10 WBC 10.2 RBC 4.92 Hgb 14.3 Hct 44.3 MCV 90.0 MCH 29.1 MCHC 32.3 RDW Std Deviation 44.0 H RDW Coeff of Loki 13.3 Plt Count 290 MPV 9.9 Immature Gran % (Auto) 1.200 H Neut % (Auto) 85.6 H Lymph % (Auto) 7.4 L Erath % (Auto) 4.3 Eos % (Auto) 0.9 Baso % (Auto) 0.6 Absolute Neuts (auto) 8.7 H Absolute Lymphs (auto) 0.75 L Nucleated RBC % 0 PT 30.1 H INR 3.0 Sodium 141 Potassium 3.3 L Chloride 104 Carbon Dioxide 33.0 H Anion Gap 4 L BUN 20 H Creatinine 1.19 H Estim Creat Clear Calc 28.89 Est GFR (MDRD) Af Amer 57 L Est GFR (MDRD) Non-Af 47 L BUN/Creatinine Ratio 16.8 Glucose 87 Calcium 9.2 Radiography Diagnostic Testing: Clinical Impression(s) from Imaging Studies Brain CT 09/18/21 13:43 IMPRESSION: 1. 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 Recommend confirmation with short-term CT or MR. Electronically Signed: Charli Zamorano MD at 14:46 EST , ADDENDUM: 09/18/21 8327 IMPRESSION: 1. 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 Recommend confirmation with short-term CT or MR. N.B. : MARY LOU Woo, confirmed on 09/18/2021 14:50:05 (ET) that the healthcare facility has received the radiology report. Electronically Signed: Charli Zamorano MD at 14:46 EST , ADDENDUM: 09/18/21 1521 Lumbar Spine X-Ray 09/18/21 13:43 IMPRESSION: T11 and L1 compression fractures of unknown age. Refer to CT. Otherwise limited exam with osteoporosis, spondylosis and scoliosis. Electronically Signed: Charli Zamorano MD at 14:56 EST , Sacrum and Coccyx X-Ray 09/18/21 13:43 IMPRESSION: Limited exam. Refer to CT pelvis for definitive evaluation in an older/osteoporotic adult. Electronically Signed: Charli Zamorano MD at 14:54 EST , Pelvis X-Ray 09/18/21 15:35 IMPRESSION: Unremarkable pelvis. In the presence of discordant symptomatology refer to CT for detection of radiographically occult fractures, such as sacral osteoporotic in an older adult. Electronically Signed: Charli Zamorano MD at 16:58 EST , Discharge Plan Triage Chief Complaint: Fall ED Provider: Velma Leavitt Dx/Rx/DC Orders Clinical Impression: Hemorrhagic stroke, prison (current) use of anticoagulants, Fall, Low back pain Prescriptions: No Action cholecalciferol (vitamin D3) 50,000 unit capsule 50,000 unit PO FR RF: 0 amiodarone 200 mg tablet 100 mg PO DAILY Qty: 45 RF: 3 pravastatin 80 mg tablet 80 mg PO QHS Qty: 90 RF: 3 pantoprazole 40 MG tablet 40 mg PO BID RF: 0 aspirin 81 MG tablet,chewable 162 mg PO DAILY RF: 0 lorazepam 0.5 MG tablet 0.5 mg PO BID PRN (Reason: ANXIETY) RF: 0 bupropion HCl 150 MG tablet extended release 24 hr 150 mg PO DAILY RF: 0 potassium chloride 20 MEQ tablet 20 meq PO DAILY RF: 0 montelukast 10 MG tablet 10 mg PO QHS RF: 0 furosemide 40 MG tablet 40 mg PO DAILY Qty: 0 RF: 0 acetaminophen 650 MG tablet extended release 650 mg PO Q6H PRN (Reason: BACK PAIN) RF: 0 warfarin 2.5 MG tablet 4.5 mg PO WEFR RF: 0 warfarin 3 MG tablet 3 mg PO SUMOTUTHSA RF: 0 famotidine 20 mg tablet 20 mg PO DAILY RF: 0 paroxetine HCl 20 mg tablet 20 mg PO DAILY RF: 0 gabapentin 100 mg capsule 100 mg PO QHS RF: 0 albuterol sulfate 2.5 MG/3 ML solution for nebulization 2.5 mg inhalation Q4H PRN Qty: 25 RF: 0 ezetimibe [Zetia] 10 mg tablet 10 mg PO DAILY Qty: 90 RF: 3 albuterol sulfate [ProAir HFA] 90 mcg/actuation HFA aerosol inhaler 2 puff INHALATION Q4H PRN (Reason: shortness of breath or wheezing) Qty: 18 RF: 6 triamcinolone acetonide [Nasacort] 55 mcg aerosol,spray 1 spray INTRANASAL DAILY Qty: 16.9 RF: 6 metoprolol succinate 50 mg tablet extended release 24 hr 50 mg PO DAILY Qty: 90 RF: 3 budesonide-formoterol 160-4.5 mcg/actuation HFA aerosol inhaler 2 inh INHALATION BID Qty: 10.2 RF: 6 Spiriva Respimat 2.5 mcg/actuation mist 2 puff inhalation QDAY Qty: 3 RF: 3 Primary Care Provider: Harley Cornejo Referrals: Harley Cornejo MD [Primary Care Provider] - Disposition Disposition: Acute Care Hospital Discharge Location: [facility]
[2021-09-18] MEDS: fentaNYL 100 MCG/2 ML Ampul 50 MCG IV (15:18)
[2021-09-18 15:21] LABS: Absolute Lymphocyte Count 0.75 X10^3/uL (0.83-4.51); Absolute Neutrophil Count 8.7 X10^3/uL (2.0-7.7); Basophil# 0.06 X10^3/uL; Basophil% 0.6 % (0-1); Eosinophil# 0.09 X10^3/uL; Eosinophils% 0.9 % (0-5); Hematocrit 44.3 % (37-47); Hemoglobin 14.3 g/dL (12.0-15.0); Lymphocyte # 0.75 X10^3/ul (0.83-4.51); Lymphocyte % 7.4 % (19-41); Mean Corp Hgb Conc 32.3 g/dL (32-36); Mean Corpuscular Hgb 29.1 pg (27.0-32.0); Mean Platelet Vol. 9.9 fl (6.2-12.0); Monocyte# 0.44 X10^3/uL; Monocyte% 4.3 % (0-10); NRBC Flagged by Analyzer 0 % (0-5); Neutrophil # 8.71 X10^3/uL (2.7-7.7); Neutrophil % 85.6 % (47-70); Platelet Count 290 K/mm3 (150-450); RBC Distribution Width CV 13.3 % (11.6-14.6); Red Blood Count 4.92 M/mm3 (4.2-5.4); White Blood Count 10.2 K/mm3 (4.4-11.0)
[2021-09-18 15:22] VITALS: BP 173/77; PULSE 75; RESP 15; O2SAT 94
--- NOTE | 2021-09-18 15:26 | ED.RN ---
HYDRALAZINE OUT OF STOCK IN ACCUDOSE. CALLED PHARMACY TO SEND UP PAUL
[2021-09-18] MEDS: hydrALAZINE 20 MG/ML Vial 10 MG IV (15:35)
--- NOTE | 2021-09-18 15:35 | RAD_ITS ---
STUDY: X-RAY - PELVIS REASON FOR EXAM: Female, 75 years old. Pain fall TECHNIQUE: One view of the pelvis was obtained. COMPARISON: None. FINDINGS: The bones of the pelvis are intact and hips are located. Sacrum is suboptimally evaluated due to obscuration by gas and colonic stool. There are degenerative changes, age-appropriate in both hips. Soft tissues are normal. RAD/Pelvis 1 or 2 Views IMPRESSION: Unremarkable pelvis. In the presence of discordant symptomatology refer to CT for detection of radiographically occult fractures, such as sacral osteoporotic in an older adult. Electronically Signed: Charli Zamorano MD at 16:58 EST ,
[2021-09-18 15:37] LABS: Anion Gap 4 (5-15); BUN 20 mg/dL (7-18); BUN/Creat Ratio 16.8 RATIO (10-20); Calcium,Total 9.2 mg/dL (8.5-10.1); Chloride 104 mmol/L (98-107); Creatinine, Serum 1.19 mg/dL (0.55-1.02); EST Glomerular Filtration Rate 47 mL/min (>60); Est Glom Filt Rate - Afr Amer 57 mL/min (>60); Estimated Creatinine Clearance 28.89 ml/min; Glucose 87 mg/dL (74-106); Potassium 3.3 mmol/L (3.5-5.1); Sodium Level 141 mmol/L (136-145)
[2021-09-18 15:39] LABS: Prothrombin Time (Protime)PT. 30.1 SECONDS (11.7-14.9)
--- NOTE | 2021-09-18 15:58 | ED.RN ---
ATTEMPTED TO CALL REPORT TO [facility]. WAS PLACED ON HOLD FOR TEN MINUTES. [facility] HERE TO TAKE PT TO ER. WILL ATTEMPT TO CALL REPORT AGAIN.
[2021-09-18 16:09] VITALS: BP 155/66; PULSE 75; RESP 18; O2SAT 95
--- NOTE | 2021-09-18 16:43 | ED.RN ---
ATTEMPTED TO CALL REPORT A SECOND TIME AND WAS PLACED ON HOLD FOR TEN MINUTES. REPORT GIVEN TO HANNA.
== END | disposition short-term general hospital (02) ==
PROVIDERS: Emergency Provider Emergency Medicine; PCP Family Medicine; Visit Provider Emergency Medicine
DX: I63.9 Cerebral infarction, unspecified (principal); J43.9 Emphysema, unspecified; I11.0 Hypertensive heart disease with heart failure; I50.32 Chronic diastolic (congestive) heart failure; I48.20 Chronic atrial fibrillation, unspecified; I25.10 Atherosclerotic heart disease of native coronary artery without angina pectoris; M54.50 Low back pain, unspecified; G89.29 Other chronic pain; Z79.01 Long term (current) use of anticoagulants; E78.5 Hyperlipidemia, unspecified; K21.9 Gastro-esophageal reflux disease without esophagitis
CPT/HCPCS: 70450; 72110; 72170; 72220; 80048; 85025; 85610; 87426; 99285; A4216

== ENCOUNTER 2021-10-03 18:43 | Emergency (ER) | payer MEDICARE, OTHER, SELFPAY ==
[2021-10-03] VITALS (7 sets, daily range): BP systolic 99–153; BP diastolic 67–87; PULSE 76–97; RESP 15–28; TEMP 36.3–37.4; O2SAT 94–100; BMI 28.1
--- NOTE | 2021-10-03 19:12 | EKG12_ITS ---
Test Reason : CP Blood Pressure : / mmHG Vent. Rate : 096 BPM Atrial Rate : 096 BPM P-R Int : 178 ms QRS Dur : 084 ms QT Int : 364 ms P-R-T Axes : 000 003 045 degrees QTc Int : 459 ms Normal sinus rhythm Normal ECG Confirmed by TICO MAC, JARRED ([id number]), art editor BOBBY CARIAS ([id number]) on 10/04/2021 9:59:01 AM Referred By: PL Confirmed By:JARRED DOSHI MD
--- NOTE | 2021-10-03 19:29 | EDS_ITS ---
HPI History of Present Illness Chief Complaint: Chest Pain Informant: patient and family Narrative Narrative: Patient here with son reporting fevers since this morning. Had T-max 100.1 this evening. Status post Tylenol. Chronic cough. Chronic chest pains. No urinary symptoms. No recent vomiting or diarrhea. Reports mild myalgias. Mild headaches. COVID vaccinated with the booster if no infections in the past. Also vaccinated for influenza this year. Denies sick contacts. Patient is on warfarin history of paroxysmal atrial fibrillation. Reports had valvular replacement in the past x2. Chronic diastolic dysfunction. [facility] Medical History (Updated 10/03/21 @ 21:[address] 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 Nonrheumatic aortic valve regurgitation Nonspecific chest pain Obesity Palpitations Severe sepsis Syncope and collapse Home Medications pantoprazole 40 mg PO BID 01/14/15 [History Last Taken 07/07/20] bupropion HCl 150 mg PO DAILY 11/15/15 [History Last Taken 07/07/20] montelukast 10 mg PO QHS 05/03/17 [History Last Taken 07/06/20] potassium chloride 20 meq PO DAILY 05/03/17 [History Last Taken 07/06/20] aspirin 81 mg chewable tablet 162 mg PO DAILY tab 09/04/17 [History Last Taken 07/07/20] lorazepam 0.5 mg tablet 0.5 mg PO BID PRN 09/04/17 [History Last Taken 07/07/20] furosemide 40 mg PO DAILY #0 12/06/17 [Rx Last Taken 07/06/20] cholecalciferol (vitamin D3) 1,250 mcg (50,000 unit) capsule 50,000 unit PO FR 06/16/19 [History Last Taken 06/25/20] acetaminophen 650 mg PO Q6H PRN 07/07/20 [History Last Taken 07/07/20] warfarin 3 mg PO SUMOTUTHSA 09/30/20 [History Last Taken Unknown] warfarin 4.5 mg PO WEFR 09/30/20 [History Last Taken Unknown] albuterol sulfate 90 mcg/actuation aerosol inhaler 2 puff INHALATION Q4H PRN #18 g 01/25/21 [Rx Last Taken Unknown] famotidine 20 mg PO DAILY 03/26/21 [History Last Taken Unknown] gabapentin 100 mg PO QHS 03/26/21 [History Last Taken Unknown] paroxetine HCl 20 mg PO DAILY 03/26/21 [History Last Taken Unknown] albuterol sulfate 2.5 mg INHALATION Q4H PRN #25 vial 05/21/21 [Rx Last Taken Unknown] triamcinolone acetonide 55 mcg nasal spray aerosol 1 spray INTRANASAL DAILY #16.9 ml 06/10/21 [Rx Last Taken Unknown] metoprolol succinate 50 mg tablet,extended release 24 hr 50 mg PO DAILY #90 tab 07/21/21 [Rx Last Taken Unknown] pravastatin 80 mg tablet 80 mg PO QHS #90 tab 08/19/21 [Rx Last Taken Unknown] budesonide-formoterol HFA 160 mcg-4.5 mcg/actuation aerosol inhaler 2 inh INHALATION BID #10.2 g 09/07/21 [Rx Last Taken Unknown] tiotropium bromide 2.5 mcg/actuation mist for inhalation 2 puff INHALATION QDAY #3 ea 09/07/21 [Rx Last Taken Unknown] amiodarone 200 mg tablet 100 mg PO DAILY #45 tab 09/22/21 [Rx Last Taken Unknown] ezetimibe 10 mg tablet 10 mg PO DAILY #90 tab 09/22/21 [Rx Last Taken Unknown] Allergy/AdvReac Type Severity Reaction Status Date / Time donepezil Allergy Severe shortness Verified 09/18/21 13:19 of breath Sulfa (Sulfonamide Allergy Swelling Verified 09/18/21 13:19 Antibiotics) celecoxib [From Celebrex] AdvReac Severe Swelling Verified 09/18/21 13:19 dextromethorphan AdvReac Severe hallucinati Verified 09/18/21 13:19 [From Delsym] on adhesive AdvReac blisters Verified 09/18/21 13:19 codeine AdvReac Itching Verified 09/18/21 13:19 levofloxacin [From Levaquin] AdvReac pain in Verified 09/18/21 13:19 legs and swelling lisinopril AdvReac cough Verified 09/18/21 13:19 oxycodone [Oxycodone] AdvReac Itching Verified 09/18/21 13:19 oxycodone HCl [From Percocet] AdvReac Itching Verified 09/18/21 13:19 Penicillins AdvReac heart Verified 09/18/21 13:19 palpitations prochlorperazine edisylate AdvReac Low blood Verified 09/18/21 13:19 [From Compazine] pressure prochlorperazine maleate AdvReac Low blood Verified 09/18/21 13:19 [From Compazine] pressure tramadol HCl [From Ultram] AdvReac Itching Verified 09/18/21 13:19 Family History Mother Arthritis CAD (coronary artery disease) Father Arthritis High cholesterol CAD (coronary artery disease) Sister Diabetes High cholesterol Hypertension Brother Diabetes High cholesterol Hypertension Surgical History H/O aortic valve replacement History of back surgery History of foot surgery History of hysterectomy History of mechanical aortic valve replacement (~10/07/13) History of sinus surgery Social History Smoking Status: Never smoker alcohol intake: never substance use type: does not use caffeine: Yes Type: coffee what type of physical activity do you participate in: none seatbelt use: always do you feel safe at home: Yes ROS ROS ED Constitutional Constitutional ED: Reports fever(s); Denies chills or sweats Eyes Eyes: Denies change in vision ENT ENT ED: Denies dysphagia or sore throat Cardiovascular Cardiovascular: Reports chest pain; Denies leg edema, palpitations or racing heartbeat Respiratory/Chest Respiratory/Chest: Reports cough; Denies dyspnea or dyspnea on exertion Gastrointestinal Gastrointestinal: Denies abdominal pain, diarrhea, nausea or vomiting Genitourinary Genitourinary ED: Denies dysuria, hematuria or urinary frequency Musculoskeletal Musculoskeletal: Reports myalgias; Denies back pain, extremity pain or neck pain Integumentary Denies rash or wounds Neurologic Neurologic: Reports headache(s); Denies paresthesias or weakness EXAM Physical Exam Const Vital Signs: 10/03/21 18:44 10/03/21 18:50 10/03/21 19:02 Temperature 97.4 F L Temperature Source Temporal Pulse Rate 97 Respiratory Rate 16 Respiratory Effort Normal Non-Labored Non-Labored Short of Breath Respiratory Depth Normal Respiratory Pattern Normal Blood Pressure 153/85 H Blood Pressure Mean 107 Pulse Ox 100 Oxygen Delivery Method Room Air Room Air 10/03/21 19:56 10/03/21 20:11 10/03/21 20:20 Temperature 98.4 F Temperature Source Temporal Pulse Rate 80 76 80 Respiratory Rate 22 H 27 H 28 H Respiratory Effort Respiratory Depth Respiratory Pattern Blood Pressure 150/67 H 140/76 H 99/87 H Blood Pressure Mean 94 97 91 Pulse Ox 97 96 94 Oxygen Delivery Method Room Air Room Air Room Air 10/03/21 21:16 Temperature Temperature Source Pulse Rate 80 Respiratory Rate 15 Respiratory Effort Respiratory Depth Respiratory Pattern Blood Pressure 139/74 H Blood Pressure Mean 95 Pulse Ox 99 Oxygen Delivery Method Room Air Positive well nourished and well developed General Appearance ED: well developed and NAD HEENT Reports moist mucous membranes normocephalic and atraumatic Eyes PERRL, EOMs intact bilaterally and conjunctivae normal General Eye ED: Yes normal appearance of both eyes Neck no lymphadenopathy and supple General: Negative for tenderness Chest Wall Chest: Negative for tenderness Resp normal respiratory effort and normal air movement Effort and Inspection: symmetric chest movement; Negative for respiratory distress Cardio regular rate, regular rhythm and no murmurs Peripheral Pulses: pulses 2+ throughout GI normal to inspection, nondistended, normoactive bowel sounds and non-tender Palpation: Negative for guarding or rebound tenderness present Back/Spine no CVA tenderness and no thoracic nor lumbar tenderness Extremity normal to inspection General Extremety ED: Negative for edema or tenderness General Extremity: Negative for edema Neuro oriented x3 and no sensory deficits noted Sensorium / Orientation: awake and alert Skin no rashes or lesions noted and no wounds MDM MDM MDM Narrative Medical decision making narrative: Patient noted initial complaint of chest pain however primary complaint was fever. Afebrile here for took Tylenol. EKG cardiac work-up was negative for chronic symptoms chronic cough with a negative chest x-ray. Labs noted white count 14.8. Chest x-ray no infection urine had 25 leukocytes no other findings she denies any symptoms I did send for culture. Electrolytes are all normal INR therapeutic at 2.9. Covid testing influenza negative. She denies any rash. Feeling better on reevaluation after 500 cc of fluid. She was able to ambulate with no difficulties. Discussed likely viral syndrome at this time she will continue Tylenol as needed. Return precautions discussed with patient and the son. All questions were answered. Lab Data Attestation: I reviewed the patient's lab results. Labs: Laboratory Results - last 24 hr 10/03/21 10/03/21 10/03/21 19:00 19:00 19:00 WBC 14.8 H RBC 4.91 Hgb 14.3 Hct 44.2 MCV 90.0 MCH 29.1 MCHC 32.4 RDW Std Deviation 45.3 H RDW Coeff of Loki 14.0 Plt Count 335 MPV 10.6 Immature Gran % (Auto) 0.400 Neut % (Auto) 88.3 H Lymph % (Auto) 5.0 L [place] % (Auto) 5.1 Eos % (Auto) 0.9 Baso % (Auto) 0.3 Absolute Neuts (auto) 13.1 H Absolute Lymphs (auto) 0.74 L Nucleated RBC % 0 PT 29.7 H INR 2.9 Sodium 140 Potassium 3.8 Chloride 103 Carbon Dioxide 31.0 Anion Gap 6 BUN 17 Creatinine 1.22 H Estim Creat Clear Calc 28.18 Est GFR (MDRD) Af Amer 55 L Est GFR (MDRD) Non-Af 45 L BUN/Creatinine Ratio 13.9 Glucose 98 Calcium 9.7 Total Bilirubin 0.40 AST 17 ALT 18 Alkaline Phosphatase 121 H Troponin I High Sens 15 Total Protein 6.6 Albumin 3.3 Globulin 3.3 Albumin/Globulin Ratio 1.0 Urine Color Urine Clarity Urine pH Ur Specific [place] Urine Protein Urine Glucose (UA) Urine Ketones Urine Occult Blood Urine Nitrite Urine Bilirubin Urine Urobilinogen Ur Leukocyte Esterase Urine RBC Urine WBC Ur Squamous Epith Cells Urine Bacteria Urine Mucus 10/03/21 19:20 WBC RBC Hgb Hct MCV MCH MCHC RDW Std Deviation RDW Coeff of Loki Plt Count MPV Immature Gran % (Auto) Neut % (Auto) Lymph % (Auto) [place] % (Auto) Eos % (Auto) Baso % (Auto) Absolute Neuts (auto) Absolute Lymphs (auto) Nucleated RBC % PT INR Sodium Potassium Chloride Carbon Dioxide Anion Gap BUN Creatinine Estim Creat Clear Calc Est GFR (MDRD) Af Amer Est GFR (MDRD) Non-Af BUN/Creatinine Ratio Glucose Calcium Total Bilirubin AST ALT Alkaline Phosphatase Troponin I High Sens Total Protein Albumin Globulin Albumin/Globulin Ratio Urine Color Yellow Urine Clarity Clear Urine pH 6.5 Ur Specific [place] 1.010 Urine Protein Negative Urine Glucose (UA) Normal Urine Ketones Negative Urine Occult Blood 25 H Urine Nitrite Negative Urine Bilirubin Negative Urine Urobilinogen Normal Ur Leukocyte Esterase 25 H Urine RBC 0 SEEN Urine WBC 0 SEEN Ur Squamous Epith Cells 0 SEEN Urine Bacteria 0 SEEN Urine Mucus 0 SEEN Radiography Chest X-Ray - ED: 1 View, Read by ED Physician and Read by Radiologist Diagnostic Testing: Clinical Impression(s) from Imaging Studies Chest X-Ray 10/03/21 19:30 IMPRESSION: There are no acute findings. Electronically Signed: Maximilian Mckeon MD at 19:45 EST Reading Location ID and State: [facility] / [place] , Service support , EKG Initial EKG: Attestation: I personally reviewed and interpreted this EKG as follows: Comments: Sinus rate of 96, no ST or T wave changes. Discharge Plan Triage Chief Complaint: Chest Pain ED Provider: Benito Ewing Dx/Rx/DC Orders Clinical Impression: Viral syndrome, Chest pain Instructions: ED Chest Pain, Noncardiac, ED Viral Syndrome (Adult) Prescriptions: No Action cholecalciferol (vitamin D3) 50,000 unit capsule 50,000 unit PO FR RF: 0 pravastatin 80 mg tablet 80 mg PO QHS Qty: 90 RF: 3 pantoprazole 40 MG tablet 40 mg PO BID RF: 0 aspirin 81 MG tablet,chewable 162 mg PO DAILY RF: 0 lorazepam 0.5 MG tablet 0.5 mg PO BID PRN (Reason: ANXIETY) RF: 0 bupropion HCl 150 MG tablet extended release 24 hr 150 mg PO DAILY RF: 0 potassium chloride 20 MEQ tablet 20 meq PO DAILY RF: 0 montelukast 10 MG tablet 10 mg PO QHS RF: 0 furosemide 40 MG tablet 40 mg PO DAILY Qty: 0 RF: 0 acetaminophen 650 MG tablet extended release 650 mg PO Q6H PRN (Reason: BACK PAIN) RF: 0 warfarin 2.5 MG tablet 4.5 mg PO WEFR RF: 0 warfarin 3 MG tablet 3 mg PO SUMOTUTHSA RF: 0 famotidine 20 mg tablet 20 mg PO DAILY RF: 0 paroxetine HCl 20 mg tablet 20 mg PO DAILY RF: 0 gabapentin 100 mg capsule 100 mg PO QHS RF: 0 albuterol sulfate 2.5 MG/3 ML solution for nebulization 2.5 mg inhalation Q4H PRN Qty: 25 RF: 0 albuterol sulfate [ProAir HFA] 90 mcg/actuation HFA aerosol inhaler 2 puff INHALATION Q4H PRN (Reason: shortness of breath or wheezing) Qty: 18 RF: 6 triamcinolone acetonide [Nasacort] 55 mcg aerosol,spray 1 spray INTRANASAL DAILY Qty: 16.9 RF: 6 metoprolol succinate 50 mg tablet extended release 24 hr 50 mg PO DAILY Qty: 90 RF: 3 budesonide-formoterol 160-4.5 mcg/actuation HFA aerosol inhaler 2 inh INHALATION BID Qty: 10.2 RF: 6 Spiriva Respimat 2.5 mcg/actuation mist 2 puff inhalation QDAY Qty: 3 RF: 3 amiodarone 200 mg tablet 100 mg PO DAILY Qty: 45 RF: 3 ezetimibe 10 mg tablet 10 mg PO DAILY Qty: 90 RF: 3 Primary Care Provider: Harley Cornejo Referrals: Harley Cornejo MD [Primary Care Provider] - 3-5 Days if not improving Activity Restrictions/Additional Instructions: Chronic chest pain and cough. Cardiac work-up negative chest x-ray negative. Covid influenza negative. Labs white count of 14. Urine with leukocytes no other findings you have no symptoms. Culture sent and pending. Monitor symptoms. Follow-up with your PCP. Return if any worsening symptoms. INR today is 2.8. Disposition Disposition: Home, Self Care
--- NOTE | 2021-10-03 19:30 | RAD_ITS ---
STUDY: XR Chest 1 View 10/03/2021 7:28 PM REASON FOR EXAM: Female, 75 years old. CHEST PAIN cough COMPARISON: None TECHNIQUE: XR Chest 1 View FINDINGS: There is no demonstrated pleural abnormality. There are multiple median sternotomy wires. Normal heart size. Normal mediastinum. Normal chica. Prominent appearing increased interstitial lung markings. Normal visualized pulmonary arteries. There is atherosclerotic calcification of the aortic arch with tortuosity. There are diffuse degenerative changes of the visualized thoracic spine. There is degenerative osteoarthritis of the bilateral shoulders. There is a hiatal hernia. RAD/Chest 1 View (Portable) IMPRESSION: There are no acute findings. Electronically Signed: Maximilian Mckeon MD at 19:45 EST ,
[2021-10-03 19:45] LABS: Bacteria 0 SEEN /hpf (None Seen); Mucous, Urine 0 SEEN /hpf (<or=2+); Red Blood Cells-Urine 0 SEEN /hpf (0-5); Squamous Epithelial Cells - UA 0 SEEN /hpf (5-10); White Blood Cells 0 SEEN /hpf (0-5)
[2021-10-03 20:05] LABS: Absolute Lymphocyte Count 0.74 X10^3/uL (0.83-4.51); Absolute Neutrophil Count 13.1 X10^3/uL (2.0-7.7); Basophil# 0.04 X10^3/uL; Basophil% 0.3 % (0-1); Eosinophil# 0.14 X10^3/uL; Eosinophils% 0.9 % (0-5); Hematocrit 44.2 % (37-47); Hemoglobin 14.3 g/dL (12.0-15.0); Lymphocyte # 0.74 X10^3/ul (0.83-4.51); Mean Corp Hgb Conc 32.4 g/dL (32-36); Mean Corpuscular Hgb 29.1 pg (27.0-32.0); Mean Platelet Vol. 10.6 fl (6.2-12.0); Monocyte# 0.75 X10^3/uL; Monocyte% 5.1 % (0-10); NRBC Flagged by Analyzer 0 % (0-5); Neutrophil # 13.06 X10^3/uL (2.7-7.7); Neutrophil % 88.3 % (47-70); Platelet Count 335 K/mm3 (150-450); RBC Distribution Width SD 45.3 fl (35.1-43.9); Red Blood Count 4.91 M/mm3 (4.2-5.4); White Blood Count 14.8 K/mm3 (4.4-11.0)
[2021-10-03 20:10] LABS: International Normalized Ratio 2.9; Prothrombin Time (Protime)PT. 29.7 SECONDS (11.7-14.9)
[2021-10-03 20:21] LABS: Color, Urine Yellow (Yellow); Glucose, Dipstick Normal (Normal); Ketone-Dipstick Negative (Negative); Leukocyte Esterase-Dipstick 25 /ul (Negative); Nitrite-Dipstick Negative (Negative); Occult Blood-Urine 25 /ul (Negative); Protein-Dipstick Negative (Negative); Urine Bilirubin Dipstick Negative (Negative); Urine Clarity Clear (Clear); Urine Urobilinogen Normal (Normal); Urine pH 6.5 (5.0 - 8.0)
[2021-10-03 20:40] LABS: AST(SGOT) 17 U/L (15-37); Alanine Aminotransfer ALT/SGPT 18 U/L (13-56); Albumin, Serum 3.3 g/dL (3.2-5.0); Alkaline Phosphatase 121 U/L (45-117); Anion Gap 6 (5-15); BUN 17 mg/dL (7-18); BUN/Creat Ratio 13.9 RATIO (10-20); Calcium,Total 9.7 mg/dL (8.5-10.1); Chloride 103 mmol/L (98-107); Creatinine, Serum 1.22 mg/dL (0.55-1.02); EST Glomerular Filtration Rate 45 mL/min (>60); Est Glom Filt Rate - Afr Amer 55 mL/min (>60); Estimated Creatinine Clearance 28.18 ml/min; Globulin 3.3 g/dL (2.2-4.2); Glucose 98 mg/dL (74-106); Potassium 3.8 mmol/L (3.5-5.1); Protein, Total 6.6 g/dL (6.4-8.2); Sodium Level 140 mmol/L (136-145); Troponin-I HS 15 pg/mL (3.0-54.0)
== END 2021-10-03 22:05 | disposition home or self-care (01) ==
PROVIDERS: Emergency Provider Emergency Medicine; PCP Family Medicine; Visit Provider Emergency Medicine
DX: B34.9 Viral infection, unspecified (principal); I11.0 Hypertensive heart disease with heart failure; I50.32 Chronic diastolic (congestive) heart failure; I48.0 Paroxysmal atrial fibrillation; R07.9 Chest pain, unspecified; I25.10 Atherosclerotic heart disease of native coronary artery without angina pectoris; E78.5 Hyperlipidemia, unspecified; R05.3 Chronic cough; R51.9 Headache, unspecified; Z79.01 Long term (current) use of anticoagulants; Z95.2 Presence of prosthetic heart valve; Z79.899 Other long term (current) drug therapy
CPT/HCPCS: 71045; 80053; 81001; 84484; 85025; 85610; 87086; 87088; 87426; 87804; 93005; 99284; J7040; A4216

== ENCOUNTER 2021-10-06 13:24 | Outpatient (CLI) | payer MEDICARE, OTHER, SELFPAY | END 2021-10-06 23:59 | disposition home or self-care (01) | LOC: LABSPEC 13:27 | PROVIDERS: PCP Family Medicine; Referring Provider Internal Medicine Critical Care Medicine; Visit Provider Internal Medicine Critical Care Medicine | DX: J47.9 Bronchiectasis, uncomplicated (principal) | CPT/HCPCS: 87070; 87077; 87184; 87186; 87205 ==

== ENCOUNTER 2021-12-28 17:56 | Emergency (ER) | payer MEDICARE, OTHER, SELFPAY ==
[2021-12-28 17:56] VITALS: BP 144/77; PULSE 89; RESP 18; TEMP 36.6; O2SAT 95; BMI 27.1
--- NOTE | 2021-12-28 18:25 | EKG12_ITS ---
Test Reason : WEAKNESS Blood Pressure : / mmHG Vent. Rate : 077 BPM Atrial Rate : 077 BPM P-R Int : 142 ms QRS Dur : 084 ms QT Int : 404 ms P-R-T Axes : -49 001 071 degrees QTc Int : 457 ms Unusual P axis, possible ectopic atrial rhythm Abnormal ECG Confirmed by CHERELLE MAC, MARTIN ([id number]), telegraph editor BOBBY CARIAS ([id number]) on 12/30/2021 1:49:59 PM Referred By: ÁLVARO Confirmed By:TOM VILLARREAL MD
--- NOTE | 2021-12-28 18:26 | EDS_ITS ---
HPI History of Present Illness Chief Complaint: Eye Problem Informant: patient Narrative Narrative: Patient presenting with several complaints. She tells triage that her eyes are bothering her and this has been the case for the past 3 months. She states sometimes it is blurry other times it is not but when it is it is bilateral, and she feels like there is sand in both of her eyes. She denies any obvious etiology of this. She states also she sees bruises or blood in her eyes that spontaneously appear and she has had no injury or pain specifically associated with these areas. She is on warfarin for mechanical heart valve and bruises easily on other parts of her body as well. She states today she has felt very weak and feverish. She has been very malaised. She walked around her house and felt like she could go no further because of the weakness. She denies dyspnea with exertion. She has a cough but it is chronic and roughly unchanged. She is occasionally coughing up some green sputum. Her throat feels sore and scratchy. She denies earache or neck stiffness. She denies any GI symptoms. No lightheadedness, near-syncope or syncope. [facility] Medical History (Updated 12/28/21 @ 22:[address] 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 Nonrheumatic aortic valve regurgitation Nonspecific chest pain Obesity Palpitations Severe sepsis Syncope and collapse Home Medications pantoprazole 40 mg PO BID 01/14/15 [History Last Taken 07/07/20] bupropion HCl 150 mg PO DAILY 11/15/15 [History Last Taken 07/07/20] montelukast 10 mg PO QHS 05/03/17 [History Last Taken 07/06/20] potassium chloride 20 meq PO DAILY 05/03/17 [History Last Taken 07/06/20] aspirin 81 mg chewable tablet 162 mg PO DAILY tab 09/04/17 [History Last Taken 07/07/20] lorazepam 0.5 mg tablet 0.5 mg PO BID PRN 09/04/17 [History Last Taken 07/07/20] furosemide 40 mg PO DAILY #0 12/06/17 [Rx Last Taken 07/06/20] cholecalciferol (vitamin D3) 1,250 mcg (50,000 unit) capsule 50,000 unit PO FR 06/16/19 [History Last Taken 06/25/20] acetaminophen 650 mg PO Q6H PRN 07/07/20 [History Last Taken 07/07/20] albuterol sulfate 2.5 mg INHALATION Q4H PRN #25 vial 05/21/21 [Rx Last Taken Unknown] triamcinolone acetonide 55 mcg nasal spray aerosol 1 spray INTRANASAL DAILY #16.9 ml 06/10/21 [Rx Last Taken Unknown] metoprolol succinate 50 mg tablet,extended release 24 hr 50 mg PO DAILY #90 tab 07/21/21 [Rx Last Taken Unknown] pravastatin 80 mg tablet 80 mg PO QHS #90 tab 08/19/21 [Rx Last Taken Unknown] budesonide-formoterol HFA 160 mcg-4.5 mcg/actuation aerosol inhaler 2 inh INHALATION BID #10.2 g 09/07/21 [Rx Last Taken Unknown] tiotropium bromide 2.5 mcg/actuation mist for inhalation 2 puff INHALATION QDAY #3 ea 09/07/21 [Rx Last Taken Unknown] amiodarone 200 mg tablet 100 mg PO DAILY #45 tab 09/22/21 [Rx Last Taken Unknown] ezetimibe 10 mg tablet 10 mg PO DAILY #90 tab 09/22/21 [Rx Last Taken Unknown] albuterol sulfate 90 mcg/actuation aerosol inhaler 2 puff INHALATION Q4H PRN #8.5 g 10/04/21 [Rx Last Taken Unknown] famotidine 20 mg tablet 20 mg PO DAILY PRN 11/29/21 [History Last Taken Unknown] ferrous sulfate 325 mg (65 mg iron) tablet 325 mg PO BID tab 11/29/21 [History Last Taken Unknown] paroxetine HCl 20 mg tablet 10 mg PO BID tab 11/29/21 [History Last Taken Unknown] warfarin 2.5 mg tablet 4.5 mg PO WEFR 11/29/21 [History Last Taken Unknown] warfarin 3 mg tablet 3 mg PO SUMOTUTHSA 11/29/21 [History Last Taken Unknown] cephalexin 500 mg PO Q6 #28 capsule 12/28/21 [Rx Last Taken Unknown] Allergy/AdvReac Type Severity Reaction Status Date / Time donepezil Allergy Severe shortness Verified 12/28/21 17:59 of breath risperidone Allergy Severe Confusion Verified 12/28/21 17:59 Sulfa (Sulfonamide Allergy Swelling Verified 12/28/21 17:59 Antibiotics) celecoxib [From Celebrex] AdvReac Severe Swelling Verified 12/28/21 17:59 dextromethorphan AdvReac Severe hallucinati Verified 12/28/21 17:59 [From Delsym] on adhesive AdvReac blisters Verified 12/28/21 17:59 codeine AdvReac Itching Verified 12/28/21 17:59 levofloxacin [From Levaquin] AdvReac pain in Verified 12/28/21 17:59 legs and swelling lisinopril AdvReac cough Verified 12/28/21 17:59 oxycodone [Oxycodone] AdvReac Itching Verified 12/28/21 17:59 oxycodone HCl [From Percocet] AdvReac Itching Verified 12/28/21 17:59 Penicillins AdvReac heart Verified 12/28/21 17:59 palpitations prochlorperazine edisylate AdvReac Low blood Verified 12/28/21 17:59 [From Compazine] pressure prochlorperazine maleate AdvReac Low blood Verified 12/28/21 17:59 [From Compazine] pressure tramadol HCl [From Ultram] AdvReac Itching Verified 12/28/21 17:59 Family History Mother Arthritis CAD (coronary artery disease) Father Arthritis High cholesterol CAD (coronary artery disease) Sister Diabetes High cholesterol Hypertension Brother Diabetes High cholesterol Hypertension Surgical History H/O aortic valve replacement History of back surgery History of foot surgery History of hysterectomy History of mechanical aortic valve replacement (~10/07/13) History of sinus surgery Social History Smoking Status: Never smoker alcohol intake: never substance use type: does not use caffeine: Yes Type: coffee what type of physical activity do you participate in: none seatbelt use: always do you feel safe at home: Yes ROS ROS ED Constitutional Constitutional ED: Reports chills, fatigue, fever(s), malaise and weakness; Denies body ache(s) or headache(s) Eyes Eyes: Reports as per HPI, blurry vision bilateral and burning; Denies diplopia or discharge from eye(s) ENT ENT ED: Denies discharge from eye(s), rhinorrhea or sore throat Cardiovascular Cardiovascular: Denies chest pain, palpitations or pedal edema Respiratory/Chest Respiratory/Chest: Reports as per HPI and cough; Denies dyspnea Gastrointestinal Gastrointestinal: Denies abdominal pain, diarrhea, nausea or vomiting Genitourinary Genitourinary ED: Denies dysuria or hematuria Musculoskeletal Musculoskeletal: Denies back pain or neck pain Integumentary Denies abscess or rash Neurologic Neurologic: Denies headache(s), paresthesias or weakness Psychiatric Psychiatric: Denies anxiety or suicidal thoughts EXAM Physical Exam Const Vital Signs: 12/28/21 17:56 Temperature 97.9 F Temperature Source Temporal Pulse Rate 89 Respiratory Rate 18 Blood Pressure 144/77 H Blood Pressure Mean 99 Pulse Ox 95 Oxygen Delivery Method Room Air Positive well nourished and well developed Constitutional Narrative: Appears malaised. No distress. Conversive in full sentences. General Appearance ED: well developed and NAD HEENT Reports moist mucous membranes HEENT Narrative: Mild posterior oropharyngeal erythema. No tonsillar exudates or edema/asymmetry. No trismus. Tongue normal. normocephalic and atraumatic Eyes PERRL and EOMs intact bilaterally Neck full ROM, no lymphadenopathy, supple and no meningeal signs Resp normal respiratory effort and clear to auscultation bilaterally Cardio regular rate and regular rhythm Heart Sounds: click GI non-tender and non-distended Auscultation: normoactive bowel sounds Palpation: soft Back/Spine no CVA tenderness General Back: other FROM Extremity normal to inspection General Extremety ED: Negative for edema, pulses abnormal or tenderness General Extremity: Negative for edema or pulses abnormal Neuro oriented x3, CN's II-XII intact bilaterally and no sensory deficits noted Sensorium / Orientation: awake and alert Motor Exam: strength 5/5 throughout Skin no rashes or lesions noted and no wounds MDM MDM MDM Narrative Medical decision making narrative: Infectious metabolic cardiac work-up obtained, COVID and influenza negative, chest x-ray 1 view on my interpretation shows no acute infiltrates, radiology in agreement, her urine appears to be grossly infected. I suspect this is the source since she has a leukocytosis and everything else really looks pretty good. Her vital signs are good. Offered admission, she declines and prefers to go home with her . Gave her a dose of Rocephin and sent a urine culture, she feels okay to get around and go home safely. She was asking about her eyes. She appears to have an old subconjunctival hemorrhage that is resolving and now simply looks like a small prado bruise on the lateral sclera of her left thigh. She does not have any conjunctival injection bilaterally, bulbar or palpebral. For the symptoms that have been going on for several months I suggest that she follow-up with her eye doctor. She states she has an appointment with Dr. Huggins in several months, I recommend she call and see if she can move it up. She is amenable to that. Will prescribe her Macrobid for the urine infection after she finishes the Rocephin and is discharged. Of note, since there were no bacteria in the urine, and it may not actually be the source, the other possibility is that she actually has COVID and her rapid test is a false negative. I think this is less likely since she has a leukocytosis, but I am sending a PCR anyway since she just started having symptoms today. Lab Data Attestation: I reviewed the patient's lab results. Rhythm Strip Rhythm Strip: Sinus Rhythm Rate: 80 Ectopy: None EKG Initial EKG: Attestation: I personally reviewed and interpreted this EKG as follows: Interpretation: Sinus Rhythm and No Acute Injury Pattern Discharge Plan Triage Chief Complaint: Eye Problem ED Provider: Randall Mack Dx/Rx/DC Orders Clinical Impression: Urinary tract infection, Malaise and fatigue, Chronic cough, Pain of both eyes, Warfarin-induced coagulopathy Instructions: ED CYSTITIS Female Adult Prescriptions: New cephalexin [cephalexin] 500 MG capsule 500 mg PO Q6 Qty: 28 RF: 0 No Action cholecalciferol (vitamin D3) 50,000 unit capsule 50,000 unit PO FR RF: 0 pravastatin 80 mg tablet 80 mg PO QHS Qty: 90 RF: 3 albuterol sulfate 90 mcg/actuation HFA aerosol inhaler 2 puff inhalation Q4H PRN (Reason: shortness of breath or wheezing) Qty: 8.5 RF: 6 ferrous sulfate 325 mg (65 mg iron) tablet 325 mg PO BID RF: 0 pantoprazole 40 MG tablet 40 mg PO BID RF: 0 aspirin 81 MG tablet,chewable 162 mg PO DAILY RF: 0 lorazepam 0.5 MG tablet 0.5 mg PO BID PRN (Reason: ANXIETY) RF: 0 bupropion HCl 150 MG tablet extended release 24 hr 150 mg PO DAILY RF: 0 potassium chloride 20 MEQ tablet 20 meq PO DAILY RF: 0 montelukast 10 MG tablet 10 mg PO QHS RF: 0 furosemide 40 MG tablet 40 mg PO DAILY Qty: 0 RF: 0 acetaminophen 650 MG tablet extended release 650 mg PO Q6H PRN (Reason: BACK PAIN) RF: 0 warfarin 2.5 mg tablet 4.5 mg PO WEFR RF: 0 warfarin 3 mg tablet 3 mg PO SUMOTUTHSA RF: 0 famotidine 20 mg tablet 20 mg PO DAILY PRNRF: 0 paroxetine HCl 20 mg tablet 10 mg PO BID RF: 0 albuterol sulfate 2.5 MG/3 ML solution for nebulization 2.5 mg inhalation Q4H PRN Qty: 25 RF: 0 triamcinolone acetonide [Nasacort] 55 mcg aerosol,spray 1 spray INTRANASAL DAILY Qty: 16.9 RF: 6 metoprolol succinate 50 mg tablet extended release 24 hr 50 mg PO DAILY Qty: 90 RF: 3 budesonide-formoterol 160-4.5 mcg/actuation HFA aerosol inhaler 2 inh INHALATION BID Qty: 10.2 RF: 6 Spiriva Respimat 2.5 mcg/actuation mist 2 puff inhalation QDAY Qty: 3 RF: 3 amiodarone 200 mg tablet 100 mg PO DAILY Qty: 45 RF: 3 ezetimibe 10 mg tablet 10 mg PO DAILY Qty: 90 RF: 3 Primary Care Provider: Harley Cornejo Referrals: Jamie Huggins MD [STAFF PHYSICIAN] - As soon as possible Harley Cornejo MD [Primary Care Provider] - 3-5 Days Disposition Disposition: Home, Self Care
[2021-12-28 18:39] VITALS: BP 153/79; PULSE 81; RESP 22; O2SAT 91
--- NOTE | 2021-12-28 18:50 | RAD_ITS ---
EXAM: XR CHEST, 1 VIEW CLINICAL INDICATION: cough fever TECHNIQUE: Frontal view of the chest. This report was created using MMIT report generation technology. COMPARISON: 10/03/2021. FINDINGS: LUNGS AND PLEURAL SPACES: No pleural effusion or pneumothorax. Partial atelectasis suspected at the left base. No other significant airspace disease. Scarring or discoid atelectasis at the periphery of the left lower lobe. Additionally opacities involving the left lower lung are unchanged and may represent scarring. HEART: Unremarkable. Cardiac silhouette not enlarged. MEDIASTINUM: Moderate to large hiatal hernia. Top normal size of the cardiac silhouette. No mediastinal or hilar enlargement. Trachea is unremarkable. BONES/JOINTS: Intact sternotomy wires. Degenerative changes of spine and clavicular joints. S-shaped curvature of the spine. SOFT TISSUES: Unremarkable. VASCULATURE: Atherosclerotic calcifications of the nonenlarged thoracic arch. RAD/Chest 1 View (Portable) IMPRESSION: No convincing obstructive pneumonia. Partial atelectasis suspected at the left base. Incidental findings as above. Electronically Signed: Juan Diego Foster MD at 19:18 EDT ,
[2021-12-28 19:17] LABS: Absolute Lymphocyte Count 1.29 X10^3/uL (0.83-4.51); Absolute Neutrophil Count 13.5 X10^3/uL (2.0-7.7); Basophil# 0.07 X10^3/uL; Basophil% 0.4 % (0-1); Eosinophil# 0.08 X10^3/uL; Eosinophils% 0.5 % (0-5); Hematocrit 46.5 % (37-47); Hemoglobin 14.6 g/dL (12.0-15.0); Lymphocyte # 1.29 X10^3/ul (0.83-4.51); Lymphocyte % 8.2 % (19-41); Mean Corp Hgb Conc 31.4 g/dL (32-36); Mean Corpuscular Hgb 28.2 pg (27.0-32.0); Mean Corpuscular Volume 89.9 fL (81-99); Mean Platelet Vol. 10.6 fl (6.2-12.0); Monocyte# 0.83 X10^3/uL; Monocyte% 5.2 % (0-10); NRBC Flagged by Analyzer 0 % (0-5); Neutrophil # 13.51 X10^3/uL (2.7-7.7); Neutrophil % 85.4 % (47-70); Platelet Count 281 K/mm3 (150-450); RBC Distribution Width CV 14.1 % (11.6-14.6); RBC Distribution Width SD 46.8 fl (35.1-43.9); Red Blood Count 5.17 M/mm3 (4.2-5.4); White Blood Count 15.8 K/mm3 (4.4-11.0)
[2021-12-28 19:18] LABS: Anion Gap 4 (5-15); BUN 20 mg/dL (7-18); BUN/Creat Ratio 15.6 RATIO (10-20); Calcium,Total 9.6 mg/dL (8.5-10.1); Chloride 102 mmol/L (98-107); Creatinine, Serum 1.28 mg/dL (0.55-1.02); EST Glomerular Filtration Rate 43 mL/min (>60); Est Glom Filt Rate - Afr Amer 52 mL/min (>60); Estimated Creatinine Clearance 26.44 ml/min; Glucose 87 mg/dL (74-106); Potassium 4.2 mmol/L (3.5-5.1); Sodium Level 140 mmol/L (136-145); Troponin-I HS 14 pg/mL (3.0-54.0)
[2021-12-28 19:23] LABS: International Normalized Ratio 2.9; Prothrombin Time (Protime)PT. 29.7 SECONDS (11.7-14.9)
[2021-12-28 20:27] LABS: Bacteria 0 SEEN /hpf (None Seen); Mucous, Urine 0 SEEN /hpf (<or=2+); Red Blood Cells-Urine 0 SEEN /hpf (0-5)
[2021-12-28 20:28] LABS: Color, Urine Yellow (Yellow); Glucose, Dipstick Normal (Normal); Ketone-Dipstick Negative (Negative); Leukocyte Esterase-Dipstick 500 /ul (Negative); Nitrite-Dipstick Negative (Negative); Occult Blood-Urine 10 /ul (Negative); Protein-Dipstick Negative (Negative); Urine Bilirubin Dipstick Negative (Negative); Urine Clarity Clear (Clear); Urine Urobilinogen 1 mg/dl (Normal)
[2021-12-28 20:33] VITALS: BP 147/80; PULSE 68; RESP 15; O2SAT 98
[2021-12-28 20:34] LABS: Squamous Epithelial Cells - UA 0-5 SEEN /hpf (5-10); White Blood Cells 5-10 SEEN /hpf (0-5)
[2021-12-28] MEDS: Ceftriaxone 1 GM/50 ML BAG IV (21:24)
[2021-12-28 22:18] VITALS: BP 142/68; PULSE 76; RESP 16
== END 2021-12-28 22:24 | disposition home or self-care (01) ==
PROVIDERS: Emergency Provider Emergency Medicine; PCP Family Medicine; Visit Provider Emergency Medicine
DX: H57.13 Ocular pain, bilateral (principal); I11.0 Hypertensive heart disease with heart failure; I50.32 Chronic diastolic (congestive) heart failure; I48.91 Unspecified atrial fibrillation; R53.81 Other malaise; Z20.822 Contact with and (suspected) exposure to COVID-19; N39.0 Urinary tract infection, site not specified; I25.10 Atherosclerotic heart disease of native coronary artery without angina pectoris; E78.5 Hyperlipidemia, unspecified; J02.9 Acute pharyngitis, unspecified; Z79.01 Long term (current) use of anticoagulants; Z95.2 Presence of prosthetic heart valve; J45.909 Unspecified asthma, uncomplicated; K21.9 Gastro-esophageal reflux disease without esophagitis; Z79.899 Other long term (current) drug therapy; Z79.82 Long term (current) use of aspirin
CPT/HCPCS: 71045; 80048; 81001; 84484; 85025; 85610; 87086; 87428; 93005; 96365; 99284; J7040; J7050; A4216

== ENCOUNTER 2022-01-19 15:04 | Emergency (ER) | payer MEDICARE, OTHER, SELFPAY ==
[2022-01-19] VITALS (10 sets, daily range): BP systolic 116–172; BP diastolic 61–101; PULSE 62–74; RESP 14–16; TEMP 36.2; O2SAT 93–97; BMI 27.3
--- NOTE | 2022-01-19 15:25 | RAD_ITS ---
STUDY: X-RAY CHEST REASON FOR EXAM: Female, 76 years old. Neuro deficit. Acute stroke suspected. TECHNIQUE: Single AP portable view of the chest. COMPARISON: 12/28/2021. FINDINGS: Stable elevation right hemidiaphragm. The lungs are well expanded and free of infiltrate or mass. There is no demonstrated pleural abnormality. Sternal cerclage wires are present from a prior sternotomy. The heart is unchanged in size. Normal mediastinum and chica. Normal visualized pulmonary arteries. Normal visualized aortic arch and descending thoracic aorta. There are degenerative changes and dextroscoliosis of the thoracic spine. Normal visualized ribs, clavicles, and shoulders. There is no demonstrated abnormality of the visualized soft tissue structures of the upper abdomen. RAD/Chest 1 View IMPRESSION: No acute abnormality or interval change. Electronically Signed: Prieto Jauregui DO at 17:04 EDT ,
--- NOTE | 2022-01-19 15:25 | EKG12_ITS ---
Test Reason : NEURO S/SX Blood Pressure : / mmHG Vent. Rate : 068 BPM Atrial Rate : 068 BPM P-R Int : 152 ms QRS Dur : 092 ms QT Int : 444 ms P-R-T Axes : 000 005 059 degrees QTc Int : 472 ms Normal sinus rhythm Normal ECG Confirmed by LATOYA MAC, IRIS ([id number]), editor dictionary BOBBY CARIAS ([id number]) on 01/20/2022 11:20:34 AM Referred By: VERN Confirmed By:IRIS KLEIN MD
--- NOTE | 2022-01-19 15:25 | CT_ITS ---
We are attempting to reach an attending provider to discuss findings. An addendum with communication details will be sent when the communication is complete. STUDY: CT HEAD STROKE PROTOCOL W/O CONTRAST INJECTION REASON FOR EXAM: Female, 76 years old. Acute neuro deficit. Stroke suspected. RADIATION DOSAGE (If Supplied By Facility): CTDIvol = ( 44.99 ) mGy, DLP = ( 796.11 ) mGycm TECHNIQUE: Transaxial CT imaging of the brain was performed without administration of intravenous contrast material. Individualized dose optimization techniques were used for this CT. COMPARISON: 09/18/2021. FINDINGS: Normal soft tissue structures. Normal calvarium. There is mild cerebral atrophy with widening of the extra-axial spaces and ventricular dilatation. There are areas of decreased attenuation within the white matter tracts of the supratentorial brain, consistent with microvascular disease changes. The hypodensity seen in the frontal white matter is less conspicuous and is thought to represent vessel. Normal basal ganglia and thalami. Normal brainstem. Normal cerebellum. There is no intracranial hemorrhage. There are no findings of an acute ischemic infarction. Normal visualized paranasal sinuses. ASPECT score: 10 CT/STROKE Brain/Head without Cont IMPRESSION: Chronic involutional changes without acute intracranial or calvarial abnormality. Electronically Signed: Prieto Jauregui DO at 16:12 EDT Reading Location ID and State: [address] [place] [address] Tel [phone], Service support ,
--- NOTE | 2022-01-19 15:26 | CT_ITS ---
We are attempting to reach an attending provider to discuss findings. An addendum with communication details will be sent when the communication is complete. STUDY: CTA HEAD AND NECK WITH CONTRAST REASON FOR EXAM: Female, 76 years old. Suspected. RADIATION DOSAGE (If Supplied By Facility): CTDIvol = ( 17.82 ) mGy, DLP = ( 382.35 ) mGycm TECHNIQUE: CT angiography was performed with a multi-detector CT scanner. Data acquisition was obtained from the skull base through the vertex following intravenous administration of IV 100mL [id number]. MIP images were reconstructed from the axial data set. Post-processing of the angiographic images was performed, with multiplanar reformation and 3D reconstruction. Individualized dose optimization techniques were used for this CT. COMPARISON: CT of the head, 01/19/2022. FINDINGS: Normal bilateral petrous carotid arteries. There is calcified plaque formation of the right cavernous carotid artery, without a cross-sectional luminal stenosis. There is calcified plaque formation of the left cavernous carotid artery, without a cross-sectional luminal stenosis. Normal right A1 segments of the anterior cerebral artery. Normal left A1 segments of the anterior cerebral artery. There is non-visualization of the anterior communicating artery (ACOM). Normal bilateral A2 segments of the anterior cerebral arteries. Normal right M1 and M2 segments of the middle cerebral arteries, with a normal M1 bifurcation. Normal left M1 and M2 segments of the middle cerebral arteries, with a normal M1 bifurcation. Normal right posterior communicating artery (PCOM). Normal left posterior communicating artery (PCOM). There is a small atretic left vertebral artery with a dominant right vertebral artery. There is a small atretic basilar artery, suggesting a basilar insufficiency. The visualized bilateral superior cerebellar (SCA) arteries are normal. Atretic P1 segments of the bilateral posterior cerebral arteries. The P2 and visualized P3 segments of the posterior cerebral arteries are patent and supplied via the bilateral posterior communicating arteries.. There is no demonstrated aneurysm of the [place]. There is no demonstrated abnormality of the visualized brain. There is marked bilateral maxillary and right ethmoid sinusitis. AORTIC ARCH: Atherosclerotic changes of the aortic arch without dissection or aneurysm. Normal origins of the brachiocephalic, left common carotid, and left subclavian arteries. RIGHT CAROTID ARTERIES: Normal right common carotid artery (CCA). There is calcific plaque at the carotid bulb with glass 50% stenosis. Normal origin of the right internal carotid (ICA) artery without a hemodynamically significant stenosis. Normal visualized cervical portion of the right internal carotid artery. Normal origin of the right external carotid artery (ECA). LEFT CAROTID ARTERIES: Normal left common carotid artery (CCA). Calcific plaque at the carotid bifurcation and with less than 50% stenosis. Normal origin of the left internal carotid (ICA) artery without a hemodynamically significant stenosis. Normal visualized cervical portion of the left internal carotid artery. Normal origin of the left external carotid artery (ECA). VERTEBRAL ARTERIES: Normal bilateral vertebral arteries. CT/STROKE CTA Head AND Neck W/Con IMPRESSION: 1. Atherosclerotic plaque at both carotid bifurcations with less than 50% stenoses bilaterally. 2. 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 Distal vessels are supplied via the posterior communicating arteries. 3. Otherwise normal [place]. 4. Sinus disease. Electronically Signed: Prieto Jauregui DO at 16:21 EDT ,
--- NOTE | 2022-01-19 15:29 | ED.VIS.STROK ---
HPI History of Present Illness Chief Complaint: Numb/Ting Informant: patient Onset/Context/Timing Onset: Today Context: Sudden Onset Timing: Continuous Quality and Location: Positive for Left Face Parasthesia, Left Arm Parasthesia and Left Leg Parasthesia; Negative for Right Facial Droop, Left Facial Droop, Right Face Paresthesia, Right Arm Parasthesia, Right Leg Parasthesia, Right Arm Weakness, Left Arm Weakness, Right Leg Weakness, Left Leg Weakness, Slurred Speech, Expressive Aphasia, Receptive Aphasia or Difficulty with Ambulation Current Severity: Mild Maximum Severity: Mild Associated Symptoms Associated Symptoms: Positive for Headache; Negative for Nausea, Vomiting or Chest Pain Narrative Narrative: 76-year-old female history of chronic A. fib, hypertension, parotic aortic valve replaced twice has mechanical valve and is on Coumadin. She is never had a stroke or mini stroke. Said today around 230 started having numbness around her lips left arm and hand and left leg. No weakness. No visual change. No slurred speech. Mild headache. She denies any fall or trauma. She has never had a stroke or mini stroke. Denies any weakness. Says she was cleaning when this occurred. Prior similar symptoms: No Recent Illness/Hospitalization: No PFSH PFSH Medical History Allergic rhinitis Aneurysm, thoracic aortic Anxiety Aortic stenosis Asthma Atherosclerotic heart disease of 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 aortic valve regurgitation Nonspecific chest pain Obesity Palpitations Severe sepsis Syncope and collapse Home Medications pantoprazole 40 mg tablet,delayed release 40 mg PO BID ACID REFLUX 01/14/15 [History Last Taken 07/07/20] bupropion HCl 150 mg 24 hr tablet, extended release 150 mg PO DAILY DEPRESSION 11/15/15 [History Last Taken 07/07/20] montelukast 10 mg tablet 10 mg PO QHS ALLERGIES 05/03/17 [History Last Taken 07/06/20] potassium chloride 20 mEq tablet,extended release(part/cryst) 20 meq PO DAILY SUPPLEMENT 10/05/17 [History Last Taken 07/06/20] aspirin 81 mg chewable tablet 162 mg PO DAILY HEART HEALTH 09/04/17 [History Last Taken 07/07/20] lorazepam 0.5 mg tablet 0.5 mg PO BID PRN ANXIETY 09/04/17 [History Last Taken 07/07/20] furosemide 40 mg tablet 40 mg PO DAILY WATER PILL ##0 12/06/17 [Rx Last Taken 07/06/20] cholecalciferol (vitamin D3) 1,250 mcg (50,000 unit) capsule 50,000 unit PO FR SUPPLEMENT 06/16/19 [History Last Taken 06/25/20] acetaminophen 650 mg tablet,extended release 650 mg PO Q6H PRN BACK PAIN 07/07/20 [History Last Taken 07/07/20] albuterol sulfate 2.5 mg (3 mL) inhalation Q4H PRN #25 vials 05/21/21 [Rx Last Taken Unknown] triamcinolone acetonide 55 mcg nasal spray aerosol (Nasacort) 1 spray intranasal DAILY #16.9 mL 06/10/21 [Rx Last Taken Unknown] metoprolol succinate 50 mg tablet,extended release 24 hr 50 mg PO DAILY BLOOD PRESSURE #90 tabs 07/21/21 [Rx Last Taken Unknown] pravastatin 80 mg tablet 80 mg PO QHS CHOLESTEROL LOWERING #90 tabs 08/19/21 [Rx Last Taken Unknown] budesonide-formoterol HFA 160 mcg-4.5 mcg/actuation aerosol inhaler 2 inh inhalation BID #10.2 grams 09/07/21 [Rx Last Taken Unknown] tiotropium bromide 2.5 mcg/actuation mist for inhalation (Spiriva Respimat) 2 puff inhalation QDAY #3 ea 09/07/21 [Rx Last Taken Unknown] amiodarone 200 mg tablet 100 mg PO DAILY #45 tabs 09/22/21 [Rx Last Taken Unknown] ezetimibe 10 mg tablet 10 mg PO DAILY #90 tabs 09/22/21 [Rx Last Taken Unknown] albuterol sulfate 90 mcg/actuation aerosol inhaler 2 puff inhalation Q4H PRN shortness of breath or wheezing #8.5 grams 10/04/21 [Rx Last Taken Unknown] famotidine 20 mg tablet 20 mg PO DAILY PRN 11/29/21 [History Last Taken Unknown] ferrous sulfate 325 mg (65 mg iron) tablet 325 mg PO BID 11/29/21 [History Last Taken Unknown] paroxetine HCl 20 mg tablet 10 mg PO BID 11/29/21 [History Last Taken Unknown] warfarin 2.5 mg tablet 4.5 mg PO WEFR blood thinner 11/29/21 [History Last Taken Unknown] warfarin 3 mg tablet 4.5 mg PO SUMOTUTHSA BLOOD THINNER 11/29/21 [History Last Taken Unknown] Allergy/AdvReac Type Severity Reaction Status Date / Time donepezil Allergy Severe shortness Verified 01/19/22 15:07 of breath risperidone Allergy Severe Confusion Verified 01/19/22 15:07 Sulfa (Sulfonamide Allergy Swelling Verified 01/19/22 15:07 Antibiotics) celecoxib [From Celebrex] AdvReac Severe Swelling Verified 01/19/22 15:07 dextromethorphan AdvReac Severe hallucinati Verified 01/19/22 15:07 [From Delsym] on adhesive AdvReac blisters Verified 01/19/22 15:07 codeine AdvReac Itching Verified 01/19/22 15:07 levofloxacin [From Levaquin] AdvReac pain in Verified 01/19/22 15:07 legs and swelling lisinopril AdvReac cough Verified 01/19/22 15:07 oxycodone [Oxycodone] AdvReac Itching Verified 01/19/22 15:07 oxycodone HCl [From Percocet] AdvReac Itching Verified 01/19/22 15:07 Penicillins AdvReac heart Verified 01/19/22 15:07 palpitations prochlorperazine edisylate AdvReac Low blood Verified 01/19/22 15:07 [From Compazine] pressure prochlorperazine maleate AdvReac Low blood Verified 01/19/22 15:07 [From Compazine] pressure tramadol HCl [From Ultram] AdvReac Itching Verified 01/19/22 15:07 Family History Mother Arthritis CAD (coronary artery disease) Father Arthritis High cholesterol CAD (coronary artery disease) Sister Diabetes High cholesterol Hypertension Brother Diabetes High cholesterol Hypertension Surgical History H/O aortic valve replacement History of back surgery History of foot surgery History of hysterectomy History of mechanical aortic valve replacement (~10/07/13) History of sinus surgery Social History Smoking Status: Never smoker alcohol intake: never substance use type: does not use caffeine: Yes Type: coffee what type of physical activity do you participate in: none seatbelt use: always do you feel safe at home: Yes ROS ROS ED ROS Narrative Patient denies recent illness. Review of Systems ROS Unobtainable: Denies due to encephalopathy Constitutional Constitutional ED: Denies chills Eyes Eyes: Denies blurry vision ENT ENT ED: Denies ear pain Cardiovascular Cardiovascular: Denies chest pain Respiratory/Chest Respiratory/Chest: Denies cough Gastrointestinal Gastrointestinal: Denies abdominal pain Genitourinary Genitourinary ED: Denies dysuria Musculoskeletal Musculoskeletal: Denies arthralgias Integumentary Denies abscess Neurologic Neurologic: Reports headache(s) Psychiatric Psychiatric: Denies anxiety Hematologic/Lymphatic Hematologic/Lymphatic: Denies easy bleeding Allergic/Immunologic Allergic/Immunologic ED: Denies mouth swelling EXAM Physical Exam Narrative Exam Narrative: 76-year-old female no acute distress. Vital signs stable afebrile. H EENT exam unremarkable. Pupils round react to light. Extra motions intact. No facial droop. Normal speech. Neck nontender. Lungs are clear. Heart regular rhythm rate about 70. Mechanical heart click. Abdomen soft nontender. Moving all 4 extremities. 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 Dorsi plantarflexion intact. Neurologically she is awake and alert with no focal motor deficits. Subjectively has decreased sensation in the left side compared to the right but is able to feel light touch. Const Vital Signs: 01/19/22 15:04 01/19/22 15:21 01/19/22 15:34 Temperature 97.2 F L Temperature Source Temporal Pulse Rate 74 70 Respiratory Rate 14 16 Blood Pressure 167/101 H 148/78 H Blood Pressure Mean 123 101 Pulse Ox 95 96 97 Oxygen Delivery Method Room Air Room Air Room Air 01/19/22 15:25 01/19/22 15:55 01/19/22 16:04 Temperature Temperature Source Pulse Rate 69 64 66 Respiratory Rate 16 14 Blood Pressure 172/71 H 157/66 H Blood Pressure Mean 104 96 Pulse Ox 94 95 Oxygen Delivery Method Room Air Room Air 01/19/22 16:25 Temperature Temperature Source Pulse Rate 62 Respiratory Rate 15 Blood Pressure 135/66 H Blood Pressure Mean 89 Pulse Ox 93 Oxygen Delivery Method Room Air Positive well nourished and well developed; Negative for obese, cachectic, contractures or unkempt General Appearance ED: well developed; Negative for unkempt, cachectic or contractures Nutritional Appearance: Negative for cachectic or obese HEENT Reports moist mucous membranes; Denies dry mucous membranes Negative for atraumatic Mouth ED: No dry mucous membranes Mouth: No dry mucous membranes Eyes PERRL and EOMs intact bilaterally General Eye ED: Negative for pale conjunctiva or scleral icterus Neck no lymphadenopathy, supple and no JVD General: Negative for tenderness Chest Wall inspection of chest normal and palpation of chest normal Resp normal respiratory effort and clear to auscultation bilaterally Effort and Inspection: Negative for retractions Auscultation: Negative for rales, rhonchi or wheezes Cardio no murmurs Rate: Negative for regular rate, bradycardia or tachycardic Rhythm: regular rhythm; Negative for abnormal rhythm or other GI normal to inspection, nondistended, normoactive bowel sounds, soft to palpation, non-tender, non-distended and no masses Inspection: Negative for abdominal distention Auscultation: normoactive bowel sounds Palpation: Negative for tender, guarding, hepatomegaly or splenomegaly Back/Spine no CVA tenderness General Back: Negative for CVA tenderness Cervical Spine: Negative for cervical spine tenderness Thoracic Spine / Upper Back: Negative for thoracic spinal tenderness Lumbar Spine / Lower Back: Negative for lumbar spinal tenderness Extremity normal to inspection General Extremety ED: Negative for deformity, edema or tenderness General Extremity: Negative for deformity or edema Neuro oriented x3 Sensorium / Orientation: alert, oriented to person, oriented to place and oriented to time; Negative for orientation impaired, confused, lethargic or stuporous Speech: speech normal Motor Exam: strength 5/5 throughout Psych mental status grossly normal Appearance: Negative for unkempt Attitude: No agitated Mood & Affect: Negative for depressed Skin no wounds General Skin Exam: Negative for jaundice Lesions: No no lesions Rashes: no rashes STROKE Vital Signs/Narrative: Vital Signs Temp Pulse Resp BP Pulse Ox 01/19/22 16:25 62 15 135/66 H 93 01/19/22 16:04 66 01/19/22 15:55 64 14 157/66 H 95 01/19/22 15:25 69 16 172/71 H 94 01/19/22 15:34 97 01/19/22 15:21 70 16 148/78 H 96 01/19/22 15:04 97.2 F L 74 14 167/101 H 95 Inital Vital Signs reviewed: Yes MDM MDM MDM Narrative Medical decision making narrative: 76-year-old female with subjective decrease sensation left arm and leg. No motor deficit. No speech deficit. Her NIH is 0. She undergo a stroke work-up including a CTA head and neck. Repeat exam patient is doing well at 5 PM. Exam is unchanged. She remains neurologically intact. We went over her test results. I discussed with her the option of being admitted for an MRI. I explained that may or may not pick up worker anything different. At this time she has no signs of stroke or mini stroke. Could she have had a TIA is a possibility. She has chronic numbness of her left small and ring finger which is in an ulnar nerve distribution. That is not new today. She did not want to be admitted to have further testing done. They will return if worse. Lab Data Attestation: I reviewed the patient's lab results. Lab results narrative: CBC White count 10. H&H 14 and 45. Platelets normal. PT/INR of 30 and 2.9. She is on chronic anticoagulation for her A. fib and mechanical valve. Electrolytes show potassium of 3.1 gap of 3 BUN and creatinine is 16 and 1.2 glucose of 114. Labs: Laboratory Results - last 24 hr 01/19/22 01/19/22 01/19/22 15:25 15:25 15:25 WBC 10.1 RBC 5.03 Hgb 14.1 Hct 45.8 MCV 91.1 MCH 28.0 MCHC 30.8 L RDW Std Deviation 47.6 H RDW Coeff of Loki 14.3 Plt Count 295 MPV 10.4 Immature Gran % (Auto) 0.400 Neut % (Auto) 77.3 H Lymph % (Auto) 12.7 L [place] % (Auto) 7.4 Eos % (Auto) 1.6 Baso % (Auto) 0.6 Absolute Neuts (auto) 7.8 H Absolute Lymphs (auto) 1.29 Nucleated RBC % 0 PT 30.2 H INR 2.9 APTT 37.0 H Sodium 139 Potassium 3.1 L Chloride 103 Carbon Dioxide 33.0 H Anion Gap 3 L BUN 16 Creatinine 1.20 H Estim Creat Clear Calc 28.20 Est GFR (MDRD) Af Amer 56 L Est GFR (MDRD) Non-Af 46 L BUN/Creatinine Ratio 13.3 Glucose 114 H Calcium 9.5 Troponin I High Sens 20 POC Glucose 01/19/22 15:38 WBC RBC Hgb Hct MCV MCH MCHC RDW Std Deviation RDW Coeff of Loki Plt Count MPV Immature Gran % (Auto) Neut % (Auto) Lymph % (Auto) Sterling % (Auto) Eos % (Auto) Baso % (Auto) Absolute Neuts (auto) Absolute Lymphs (auto) Nucleated RBC % PT INR APTT Sodium Potassium Chloride Carbon Dioxide Anion Gap BUN Creatinine Estim Creat Clear Calc Est GFR (MDRD) Af Amer Est GFR (MDRD) Non-Af BUN/Creatinine Ratio Glucose Calcium Troponin I High Sens POC Glucose 118 H Radiography Diagnostic Testing: Clinical Impression(s) from Imaging Studies Brain CT 01/19/22 15:25 IMPRESSION: Chronic involutional changes without acute intracranial or calvarial abnormality. Electronically Signed: Prieto Jauregui DO at 16:12 EDT Reading Location ID and State: [facility] / [place] Tel [phone], Service support , ADDENDUM: 01/19/22 1630 IMPRESSION: Chronic involutional changes without acute intracranial or calvarial abnormality. N.B. : The above Results were Read Back by Prieto Jauregui DO to Dr Eugene Grant MD, and understanding confirmed on 01/19/2022 16:23:10 (ET). Electronically Signed: Prieto Jauregui DO at 16:12 EDT , Head/Neck CTA 01/19/22 15:26 IMPRESSION: 1. Atherosclerotic plaque at both carotid bifurcations with less than 50% stenoses bilaterally. 2. 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 Distal vessels are supplied via the posterior communicating arteries. 3. Otherwise normal [place]. 4. Sinus disease. Electronically Signed: Prieto Jauregui DO at 16:21 EDT Reading Location ID and State: [facility] / [place] Tel [phone], Service support , ADDENDUM: 01/19/22 1629 IMPRESSION: 1. Atherosclerotic plaque at both carotid bifurcations with less than 50% stenoses bilaterally. 2. 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 Distal vessels are supplied via the posterior communicating arteries. 3. Otherwise normal [place]. 4. Sinus disease. N.B. : The above Results were Read Back by Prieto Jauregui DO to Dr Rudy MD, and understanding confirmed on 01/19/2022 16:23:05 (ET). Electronically Signed: Prieto Jauregui DO at 16:21 EDT Reading Location ID and State: [facility] / [place] Tel [phone], Service support , Rhythm Strip Rhythm Strip: Sinus Rhythm Rate: 68 Ectopy: None EKG Initial EKG: Attestation: I personally reviewed and interpreted this EKG as follows: Interpretation: Sinus Rhythm Comments: Normal sinus rhythm rate of 68 no acute signs of ND or ischemia. Discharge Plan Triage Chief Complaint: Numb/Ting ED Provider: Chaz Grant Dx/Rx/DC Orders Prescriptions: No Action cholecalciferol (vitamin D3) 50,000 unit capsule 50,000 unit PO FR pravastatin 80 mg tablet 80 mg PO QHS Qty: 90 3RF albuterol sulfate 90 mcg/actuation HFA aerosol inhaler 2 puff inhalation Q4H PRN (Reason: shortness of breath or wheezing) Qty: 8.5 6RF Rx Instructions: administer with spacer ferrous sulfate 325 mg (65 mg iron) tablet 325 mg PO BID Label Comments: TAKE 1 TABLET BY MOUTH TWICE DAILY WITH MEALS pantoprazole 40 MG tablet 40 mg PO BID Label Comments: stomach aspirin 81 MG tablet,chewable 162 mg PO DAILY Label Comments: blood thinner/heart lorazepam 0.5 MG tablet 0.5 mg PO BID PRN (Reason: ANXIETY) Label Comments: anxiety bupropion HCl 150 MG tablet extended release 24 hr 150 mg PO DAILY Label Comments: depression potassium chloride 20 MEQ tablet 20 meq PO DAILY montelukast 10 MG tablet 10 mg PO QHS furosemide 40 MG tablet 40 mg PO DAILY Qty: 0 0RF acetaminophen 650 MG tablet extended release 650 mg PO Q6H PRN (Reason: BACK PAIN) warfarin 2.5 mg tablet 4.5 mg PO WEFR Rx Instructions: Managed by PCP warfarin 3 mg tablet 4.5 mg PO SUMOTUTHSA Rx Instructions: Managed by PCP famotidine 20 mg tablet 20 mg PO DAILY PRN Label Comments: TAKE 1 TABLET BY MOUTH AT BEDTIME NEEDED paroxetine HCl 20 mg tablet 10 mg PO BID albuterol sulfate 2.5 MG/3 ML solution for nebulization 2.5 mg inhalation Q4H PRN Qty: 25 0RF Rx Instructions: Use q4 hours and PRN for wheezing triamcinolone acetonide [Nasacort] 55 mcg aerosol,spray 1 spray INTRANASAL DAILY Qty: 16.9 6RF metoprolol succinate 50 mg tablet extended release 24 hr 50 mg PO DAILY Qty: 90 3RF budesonide-formoterol 160-4.5 mcg/actuation HFA aerosol inhaler 2 inh INHALATION BID Qty: 10.2 6RF Spiriva Respimat 2.5 mcg/actuation mist 2 puff inhalation QDAY Qty: 3 3RF Rx Instructions: administer at approximately the same time(s) each day amiodarone 200 mg tablet 100 mg PO DAILY Qty: 45 3RF ezetimibe 10 mg tablet 10 mg PO DAILY Qty: 90 3RF Primary Care Provider: Harley Cornejo Referrals: Harley Cornejo MD [Primary Care Provider] -
[2022-01-19 15:39] LABS: Absolute Lymphocyte Count 1.29 X10^3/uL (0.83-4.51); Absolute Neutrophil Count 7.8 X10^3/uL (2.0-7.7); Basophil# 0.06 X10^3/uL; Basophil% 0.6 % (0-1); Eosinophil# 0.16 X10^3/uL; Eosinophils% 1.6 % (0-5); Hematocrit 45.8 % (37-47); Hemoglobin 14.1 g/dL (12.0-15.0); Lymphocyte # 1.29 X10^3/ul (0.83-4.51); Lymphocyte % 12.7 % (19-41); Mean Corp Hgb Conc 30.8 g/dL (32-36); Mean Corpuscular Volume 91.1 fL (81-99); Mean Platelet Vol. 10.4 fl (6.2-12.0); Monocyte# 0.75 X10^3/uL; Monocyte% 7.4 % (0-10); NRBC Flagged by Analyzer 0 % (0-5); Neutrophil # 7.82 X10^3/uL (2.7-7.7); Neutrophil % 77.3 % (47-70); Platelet Count 295 K/mm3 (150-450); RBC Distribution Width CV 14.3 % (11.6-14.6); RBC Distribution Width SD 47.6 fl (35.1-43.9); Red Blood Count 5.03 M/mm3 (4.2-5.4); White Blood Count 10.1 K/mm3 (4.4-11.0)
--- NOTE | 2022-01-19 15:40 | ED.RN ---
pt states symptoms started around 1430 when she was cleaning out the fridge.
[2022-01-19 15:41] LABS: Bedside Glucose 118 mg/dL (74-106)
[2022-01-19 15:50] LABS: International Normalized Ratio 2.9; Prothrombin Time (Protime)PT. 30.2 SECONDS (11.7-14.9)
[2022-01-19 16:04] LABS: Anion Gap 3 (5-15); BUN 16 mg/dL (7-18); BUN/Creat Ratio 13.3 RATIO (10-20); Calcium,Total 9.5 mg/dL (8.5-10.1); Chloride 103 mmol/L (98-107); EST Glomerular Filtration Rate 46 mL/min (>60); Est Glom Filt Rate - Afr Amer 56 mL/min (>60); Glucose 114 mg/dL (74-106); Potassium 3.1 mmol/L (3.5-5.1); Sodium Level 139 mmol/L (136-145); Troponin-I HS 20 pg/mL (3.0-54.0)
== END 2022-01-19 17:18 | disposition home or self-care (01) ==
PROVIDERS: Emergency Provider Emergency Medicine; PCP Family Medicine; Visit Provider Emergency Medicine
DX: R47.81 Slurred speech (principal); I11.0 Hypertensive heart disease with heart failure; I50.32 Chronic diastolic (congestive) heart failure; R51.9 Headache, unspecified; I65.23 Occlusion and stenosis of bilateral carotid arteries; E78.5 Hyperlipidemia, unspecified; I25.10 Atherosclerotic heart disease of native coronary artery without angina pectoris; R47.01 Aphasia; Z95.2 Presence of prosthetic heart valve; Z79.01 Long term (current) use of anticoagulants
CPT/HCPCS: 70450; 70496; 70498; 71045; 80048; 82962; 84484; 85025; 85610; 85730; 93005; 99284; Q9967; A4216

== ENCOUNTER 2022-05-24 08:37 | Emergency (ER) | payer MEDICARE, OTHER, SELFPAY ==
[2022-05-24 08:39] VITALS: BP 154/94; PULSE 100; RESP 18; TEMP 36.8; O2SAT 95; BMI 26.4
[2022-05-24 08:53] VITALS: BP 154/94; PULSE 100; RESP 18; TEMP 36.8; O2SAT 95
--- NOTE | 2022-05-24 09:32 | EKG12_ITS ---
Test Reason : SOB Blood Pressure : / mmHG Vent. Rate : 070 BPM Atrial Rate : 070 BPM P-R Int : 148 ms QRS Dur : 082 ms QT Int : 416 ms P-R-T Axes : -26 -06 059 degrees QTc Int : 449 ms Normal sinus rhythm Minimal voltage criteria for LVH, may be normal variant ( R in aVL ) Borderline ECG Confirmed by LATOYA MAC, IRIS ([id number]), features editor BOBBY CARIAS ([id number]) on 05/25/2022 10:46:01 AM Referred By: Confirmed By:IRIS KLEIN MD
--- NOTE | 2022-05-24 09:44 | EDS_ITS ---
HPI History of Present Illness Chief Complaint: General Illness Informant: patient and spouse/S.O. Narrative Narrative: 76-year-old female brought to the emergency department with chief complaint of cough. Patient reports a history of COPD. She notes no change in the amount color of sputum but does note that her cough has increased. She notes generalized body aches. She has not had much of an appetite over the past few days. She notes that she has not had any fever. She wears oxygen at night and has a nebulizer. notes a history of dementia. She has been on Coumadin. No hemoptysis [facility] Medical History (Updated 05/24/22 @ 11:[address] 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 Nonrheumatic aortic valve regurgitation Nonspecific chest pain Obesity Palpitations Severe sepsis Syncope and collapse Home Medications pantoprazole 40 mg tablet,delayed release 40 mg PO BID ACID REFLUX 01/14/15 [History Last Taken 07/07/20] bupropion HCl 150 mg 24 hr tablet, extended release 150 mg PO DAILY DEPRESSION 11/15/15 [History Last Taken 07/07/20] montelukast 10 mg tablet 10 mg PO QHS ALLERGIES 05/03/17 [History Last Taken 07/06/20] potassium chloride 20 mEq tablet,extended release(part/cryst) 20 meq PO DAILY SUPPLEMENT 05/03/17 [History Last Taken 07/06/20] aspirin 81 mg chewable tablet 162 mg PO DAILY HEART HEALTH 09/04/17 [History Last Taken 07/07/20] lorazepam 0.5 mg tablet 0.5 mg PO BID PRN ANXIETY 09/04/17 [History Last Taken 07/07/20] furosemide 40 mg tablet 40 mg PO DAILY WATER PILL ##0 12/06/17 [Rx Last Taken 07/06/20] cholecalciferol (vitamin D3) 1,250 mcg (50,000 unit) capsule 50,000 unit PO FR SUPPLEMENT 06/16/19 [History Last Taken 06/25/20] acetaminophen 650 mg tablet,extended release 650 mg PO Q6H PRN BACK PAIN 07/07/20 [History Last Taken 07/07/20] albuterol sulfate 2.5 mg/3 mL (0.083 %) solution for nebulization 2.5 mg (3 mL) inhalation Q4H PRN #25 vials 05/21/21 [Rx Last Taken Unknown] triamcinolone acetonide 55 mcg nasal spray aerosol (Nasacort) 1 spray intranasal DAILY #16.9 mL 06/10/21 [Rx Last Taken Unknown] metoprolol succinate 50 mg tablet,extended release 24 hr 50 mg PO DAILY BLOOD PRESSURE #90 tabs 07/21/21 [Rx Last Taken Unknown] pravastatin 80 mg tablet 80 mg PO QHS CHOLESTEROL LOWERING #90 tabs 08/19/21 [Rx Last Taken Unknown] tiotropium bromide 2.5 mcg/actuation mist for inhalation (Spiriva Respimat) 2 puff inhalation QDAY #3 ea 09/07/21 [Rx Last Taken Unknown] amiodarone 200 mg tablet 100 mg PO DAILY #45 tabs 09/22/21 [Rx Last Taken Unknown] ezetimibe 10 mg tablet 10 mg PO DAILY #90 tabs 09/22/21 [Rx Last Taken Unknown] albuterol sulfate 90 mcg/actuation aerosol inhaler 2 puff inhalation Q4H PRN shortness of breath or wheezing #8.5 grams 10/04/21 [Rx Last Taken Unknown] famotidine 20 mg tablet 20 mg PO DAILY PRN 11/29/21 [History Last Taken Unknown] ferrous sulfate 325 mg (65 mg iron) tablet 325 mg PO BID 11/29/21 [History Last Taken Unknown] paroxetine HCl 20 mg tablet 10 mg PO BID 11/29/21 [History Last Taken Unknown] warfarin 2.5 mg tablet 4.5 mg PO WEFR blood thinner 11/29/21 [History Last Taken Unknown] warfarin 3 mg tablet 4.5 mg PO SUMOTUTHSA BLOOD THINNER 11/29/21 [History Last Taken Unknown] budesonide-formoterol HFA 160 mcg-4.5 mcg/actuation aerosol inhaler 2 inh inhalation BID #10.2 grams 04/04/22 [Rx Last Taken Unknown] guaifenesin 1,200 mg tablet, extended release 12 hr 1,200 mg PO Q12H #60 tabs 04/04/22 [Rx Last Taken Unknown] doxycycline monohydrate 100 mg capsule 100 mg PO BID #14 CAPSULES 05/24/22 [Rx Last Taken Unknown] prednisone 20 mg tablet 60 mg PO DAILY #15 TABLETS 05/24/22 [Rx Last Taken Unknown] Allergy/AdvReac Type Severity Reaction Status Date / Time donepezil Allergy Severe shortness Verified 05/24/22 08:38 of breath risperidone Allergy Severe Confusion Verified 05/24/22 08:38 Sulfa (Sulfonamide Allergy Swelling Verified 05/24/22 08:38 Antibiotics) celecoxib [From Celebrex] AdvReac Severe Swelling Verified 05/24/22 08:38 dextromethorphan AdvReac Severe hallucinati Verified 05/24/22 08:38 [From Delsym] on adhesive AdvReac blisters Verified 05/24/22 08:38 codeine AdvReac Itching Verified 05/24/22 08:38 levofloxacin [From Levaquin] AdvReac pain in Verified 05/24/22 08:38 legs and swelling lisinopril AdvReac cough Verified 05/24/22 08:38 oxycodone [Oxycodone] AdvReac Itching Verified 05/24/22 08:38 oxycodone HCl [From Percocet] AdvReac Itching Verified 05/24/22 08:38 Penicillins AdvReac heart Verified 05/24/22 08:38 palpitations prochlorperazine edisylate AdvReac Low blood Verified 05/24/22 08:38 [From Compazine] pressure prochlorperazine maleate AdvReac Low blood Verified 05/24/22 08:38 [From Compazine] pressure tramadol HCl [From Ultram] AdvReac Itching Verified 05/24/22 08:38 Family History Mother Arthritis CAD (coronary artery disease) Father Arthritis High cholesterol CAD (coronary artery disease) Sister Diabetes High cholesterol Hypertension Brother Diabetes High cholesterol Hypertension Surgical History H/O aortic valve replacement History of back surgery History of foot surgery History of hysterectomy History of mechanical aortic valve replacement (~10/07/13) History of sinus surgery Social History Smoking Status: Never smoker alcohol intake: never substance use type: does not use caffeine: Yes Type: coffee what type of physical activity do you participate in: none seatbelt use: always do you feel safe at home: Yes ROS ROS ED Constitutional Constitutional ED: Denies chills, fever(s) or weight loss Eyes Eyes: Denies change in vision or diplopia ENT ENT ED: Denies ear pain, rhinorrhea or sore throat Cardiovascular Cardiovascular: Denies chest pain, orthopnea, palpitations, paroxysmal nocturnal dyspnea or racing heartbeat Respiratory/Chest Respiratory/Chest: Reports cough, dyspnea, dyspnea on exertion and sputum; Denies orthopnea or paroxysmal nocturnal dyspnea Gastrointestinal Gastrointestinal: Denies abdominal pain, diarrhea, nausea or vomiting Genitourinary Genitourinary ED: Denies dysuria, hematuria or urinary frequency Musculoskeletal Musculoskeletal: Reports myalgias; Denies arthralgias, back pain or neck pain Integumentary Denies abscess or rash Neurologic Neurologic: Denies headache(s) or weakness Psychiatric Psychiatric: Denies anxiety, depression, suicidal ideation or suicidal thoughts Endocrine Endocrinology: Denies polydipsia, polyphagia or polyuria Allergic/Immunologic Allergic/Immunologic ED: Denies mouth swelling, tongue swelling or urticaria EXAM Physical Exam Const Vital Signs: 05/24/22 08:39 05/24/22 08:53 05/24/22 08:53 Temperature 98.2 F 98.2 F Temperature Source Temporal Temporal Pulse Rate 100 100 Respiratory Rate 18 18 Respiratory Effort Normal Non-Labored Respiratory Pattern Blood Pressure 154/94 H 154/94 H Blood Pressure Mean 114 114 Pulse Ox 95 95 Oxygen Delivery Method Room Air Room Air 05/24/22 09:54 05/24/22 10:25 Temperature 99.4 F H Temperature Source Oral Pulse Rate 90 73 Respiratory Rate 24 H 17 Respiratory Effort Respiratory Pattern Normal Blood Pressure 121/85 H Blood Pressure Mean 97 Pulse Ox 92 Oxygen Delivery Method Room Air Positive well nourished and well developed General Appearance ED: well developed HEENT Reports normocephalic, head/scalp atraumatic and moist mucous membranes Eyes PERRL and EOMs intact bilaterally Neck no lymphadenopathy, supple and no JVD Resp normal respiratory effort and clear to auscultation bilaterally Cardio regular rate, regular rhythm and no murmurs GI normal to inspection, nondistended, normoactive bowel sounds and non-tender Palpation: soft Back/Spine no CVA tenderness and normal ROM Extremity normal to inspection General Extremety ED: Negative for edema General Extremity: Negative for edema Neuro oriented x3 and CN's II-XII intact bilaterally Sensorium / Orientation: alert Motor Exam: strength 5/5 throughout Psych mental status grossly normal Mood & Affect: Negative for depressed or tearful Skin no rashes or lesions noted and no wounds MDM MDM MDM Narrative Medical decision making narrative: Since white count is elevated at 17.6. This has been a noted issue in the past that has gone on explained. My interpretation of her chest x-ray is no acute process. She received a breathing treatment as well as prednisone. She states she feels better after the breathing treatment. The patient's COVID and influenza testing is negative. I believe the patient is having a COPD flare. We are going to place her on prednisone as well as doxycycline. We did talk a bout prednisone especially in the light of her having dementia. I had social work visit with her and her and offer resources. At this point patient will be discharged home return if worsening or concerns Lab Data Attestation: I reviewed the patient's lab results. Labs: Laboratory Results - last 24 hr 05/24/22 05/24/22 09:40 09:40 WBC 17.6 H RBC 4.89 Hgb 14.4 Hct 44.6 MCV 91.2 MCH 29.4 MCHC 32.3 RDW Std Deviation 49.3 H RDW Coeff of [place]oki 14.7 H Plt Count 275 MPV 10.1 Immature Gran % (Auto) 0.500 Neut % (Auto) 90.2 H Lymph % (Auto) 4.4 L [place] % (Auto) 4.4 Eos % (Auto) 0.2 Baso % (Auto) 0.3 Absolute Neuts (auto) 15.9 H Absolute Lymphs (auto) 0.77 L Nucleated RBC % 0 Sodium 138 Potassium 4.1 Chloride 102 Carbon Dioxide 33.0 H Anion Gap 3 L BUN 16 Creatinine 0.97 Estim Creat Clear Calc 34.89 Est GFR (MDRD) Af Amer 72 Est GFR (MDRD) Non-Af 59 L BUN/Creatinine Ratio 16.5 Glucose 84 Calcium 9.8 Troponin I High Sens 17 Radiography Diagnostic Testing: Clinical Impression(s) from Imaging Studies Chest X-Ray 05/24/22 09:55 IMPRESSION: Stable elevation of the right hemidiaphragm. Large hiatal hernia. Electronically Signed: Jesse Abernathy MD at 10:24 EDT , EKG Initial EKG: Attestation: I personally reviewed and interpreted this EKG as follows: Comments: Normal sinus rhythm with a ventricular rate of 70 bpm Prior EKG tracings: available for review Prior: Unchanged Discharge Plan Triage Chief Complaint: General Illness ED Provider: Tyler Bergman Dx/Rx/DC Orders Clinical Impression: Acute exacerbation of chronic obstructive pulmonary disease, Acute dyspnea Instructions: ED COPD Flare Prescriptions: New prednisone 20 mg tablet 60 mg PO DAILY Qty: 15 0RF doxycycline monohydrate 100 mg capsule 100 mg PO BID Qty: 14 0RF No Action cholecalciferol (vitamin D3) 50,000 unit capsule 50,000 unit PO FR pravastatin 80 mg tablet 80 mg PO QHS Qty: 90 3RF albuterol sulfate 90 mcg/actuation HFA aerosol inhaler 2 puff inhalation Q4H PRN (Reason: shortness of breath or wheezing) Qty: 8.5 6RF Rx Instructions: administer with spacer ferrous sulfate 325 mg (65 mg iron) tablet 325 mg PO BID Label Comments: TAKE 1 TABLET BY MOUTH TWICE DAILY WITH MEALS budesonide-formoterol 160-4.5 mcg/actuation HFA aerosol inhaler 2 inh INHALATION BID Qty: 10.2 6RF guaifenesin 1,200 mg tablet extended release 12hr 1,200 mg PO Q12H Qty: 60 6RF pantoprazole 40 MG tablet 40 mg PO BID Label Comments: stomach aspirin 81 MG tablet,chewable 162 mg PO DAILY Label Comments: blood thinner/heart lorazepam 0.5 MG tablet 0.5 mg PO BID PRN (Reason: ANXIETY) Label Comments: anxiety bupropion HCl 150 MG tablet extended release 24 hr 150 mg PO DAILY Label Comments: depression potassium chloride 20 MEQ tablet 20 meq PO DAILY montelukast 10 MG tablet 10 mg PO QHS furosemide 40 MG tablet 40 mg PO DAILY Qty: 0 0RF acetaminophen 650 MG tablet extended release 650 mg PO Q6H PRN (Reason: BACK PAIN) warfarin 2.5 mg tablet 4.5 mg PO WEFR Rx Instructions: Managed by PCP warfarin 3 mg tablet 4.5 mg PO SUMOTUTHSA Rx Instructions: Managed by PCP famotidine 20 mg tablet 20 mg PO DAILY PRN Label Comments: TAKE 1 TABLET BY MOUTH AT BEDTIME NEEDED paroxetine HCl 20 mg tablet 10 mg PO BID albuterol sulfate 2.5 MG/3 ML solution for nebulization 2.5 mg inhalation Q4H PRN Qty: 25 0RF Rx Instructions: Use q4 hours and PRN for wheezing triamcinolone acetonide [Nasacort] 55 mcg aerosol,spray 1 spray INTRANASAL DAILY Qty: 16.9 6RF metoprolol succinate 50 mg tablet extended release 24 hr 50 mg PO DAILY Qty: 90 3RF Spiriva Respimat 2.5 mcg/actuation mist 2 puff inhalation QDAY Qty: 3 3RF Rx Instructions: administer at approximately the same time(s) each day amiodarone 200 mg tablet 100 mg PO DAILY Qty: 45 3RF ezetimibe 10 mg tablet 10 mg PO DAILY Qty: 90 3RF Primary Care Provider: Harley Cornejo Referrals: Harley Cornejo MD [Primary Care Provider] - 3-5 Days if not improving Disposition Disposition: Home, Self Care
[2022-05-24 09:54] VITALS: PULSE 90; RESP 24
[2022-05-24 09:54] LABS: Absolute Lymphocyte Count 0.77 X10^3/uL (0.83-4.51); Absolute Neutrophil Count 15.9 X10^3/uL (2.0-7.7); Basophil# 0.06 X10^3/uL; Basophil% 0.3 % (0-1); Eosinophil# 0.04 X10^3/uL; Eosinophils% 0.2 % (0-5); Hematocrit 44.6 % (37-47); Hemoglobin 14.4 g/dL (12.0-15.0); Lymphocyte # 0.77 X10^3/ul (0.83-4.51); Lymphocyte % 4.4 % (19-41); Mean Corp Hgb Conc 32.3 g/dL (32-36); Mean Corpuscular Hgb 29.4 pg (27.0-32.0); Mean Corpuscular Volume 91.2 fL (81-99); Mean Platelet Vol. 10.1 fl (6.2-12.0); Monocyte# 0.78 X10^3/uL; Monocyte% 4.4 % (0-10); NRBC Flagged by Analyzer 0 % (0-5); Neutrophil % 90.2 % (47-70); Platelet Count 275 K/mm3 (150-450); RBC Distribution Width CV 14.7 % (11.6-14.6); RBC Distribution Width SD 49.3 fl (35.1-43.9); Red Blood Count 4.89 M/mm3 (4.2-5.4); White Blood Count 17.6 K/mm3 (4.4-11.0)
[2022-05-24] MEDS: Ipratropium/Albuterol Sulfate 3 ML AMPUL.NEB INHALATION (09:54)
--- NOTE | 2022-05-24 09:55 | RAD_ITS ---
STUDY: X-RAY CHEST REASON FOR EXAM: Female, 76 years old. Cough and body aches. Recent flu vaccination. TECHNIQUE: Single AP portable view of the chest. COMPARISON: Comparison is made with prior study dated 01/19/2022. FINDINGS: Stable elevation of the right hemidiaphragm. The lungs are clear and expanded. There is no demonstrated pleural abnormality. Sternal cerclage wires and vascular clips are present from a prior sternotomy and coronary artery bypass graft procedure (CABG). Cardiomegaly. Normal mediastinum and chica. Normal visualized pulmonary arteries. Normal visualized aortic arch and descending thoracic aorta. Normal visualized thoracic spine. Normal visualized ribs, clavicles, and shoulders. Large hiatal hernia. RAD/Chest 1 View (Portable) IMPRESSION: Stable elevation of the right hemidiaphragm. Large hiatal hernia. Electronically Signed: Jesse Abernathy MD at 10:24 EDT ,
[2022-05-24 10:12] LABS: Anion Gap 3 (5-15); BUN 16 mg/dL (7-18); BUN/Creat Ratio 16.5 RATIO (10-20); Calcium,Total 9.8 mg/dL (8.5-10.1); Chloride 102 mmol/L (98-107); Creatinine, Serum 0.97 mg/dL (0.55-1.02); EST Glomerular Filtration Rate 59 mL/min (>60); Est Glom Filt Rate - Afr Amer 72 mL/min (>60); Estimated Creatinine Clearance 34.89 ml/min; Glucose 84 mg/dL (74-106); Potassium 4.1 mmol/L (3.5-5.1); Sodium Level 138 mmol/L (136-145); Troponin-I HS 17 pg/mL (3.0-54.0)
[2022-05-24 10:25] VITALS: BP 121/85; PULSE 73; RESP 17; TEMP 37.4; O2SAT 92
[2022-05-24] MEDS: predniSONE 20 MG Tablet 60 MG PO (10:29)
[2022-05-24 11:24] VITALS: BP 112/96; PULSE 85; RESP 15; O2SAT 95
--- NOTE | 2022-05-24 14:09 | CM.ED ---
Social Work Consult: Resources Referral source: Dr. Bergman This social services counselor met with patient and patient spouse in room. This social services counselor introduced self and social services counselor role. Patient agreeable to speak with this social services counselor. Patient agreeable to this social services counselor speaking with patient while patient spouse is present. This social services counselor exploring possible community needs. Patient reports we have issues with transportation sometimes. This social services counselor educating patient/patient spouse on [place] transportation options as well as day care. Patient reports to be the primary person that cooks in the home. There is concern of dementia diagnosis for patient per Dr. Bermgan. This social services counselor provided information on Meals [employer] Wheels, [employer], and [employer] as support options for patient and patient spouse. Patient and patient spouse thanked this social services counselor for resources and deny further needs/concerns. No further services requested or indicated. King HAINES, CLAU
== END 2022-05-24 11:25 | disposition home or self-care (01) ==
PROVIDERS: Emergency Provider Emergency Medicine; PCP Family Medicine; Visit Provider Emergency Medicine
DX: J44.1 Chronic obstructive pulmonary disease with (acute) exacerbation (principal); F03.90 Unspecified dementia, unspecified severity, without behavioral disturbance, psychotic disturbance, mood disturbance, and anxiety; I11.0 Hypertensive heart disease with heart failure; I50.32 Chronic diastolic (congestive) heart failure; E78.5 Hyperlipidemia, unspecified; I25.10 Atherosclerotic heart disease of native coronary artery without angina pectoris; R06.00 Dyspnea, unspecified; Z79.01 Long term (current) use of anticoagulants
CPT/HCPCS: 71045; 80048; 84484; 85025; 87428; 93005; 94640; 99285

== ENCOUNTER → 2022-06-07 | Outpatient (CLI) | payer MEDICARE, OTHER, SELFPAY ==
--- NOTE | 2022-06-07 12:52 | ECHOD_ITS ---
Reason For Study: AV Replacement Procedure This was a 2D Doppler, Color Flow transthoracic echocardiogram. The study was technically difficult. Exam performed in department. Left Ventricle Normal LV size. Sigmoid septum. Left ventricular systolic function is normal. The estimated ejection fraction is 60 %. Transmitral diastolic flow velocities suggest moderate (stage 2) diastolic dysfunction (pseudonormal pattern). No regional wall motion abnormalities noted. Right Ventricle Normal RV size. Normal systolic function. Atria The left atrium is moderately enlarged. Normal right atrium. No doppler evidence for ASD. Mitral Valve There is moderate to severe mitral annular calcification. Extension of the mitral annular calcification onto the base of the posterior mitral valve leaflet. Mild mitral valve stenosis. Mild (1+) mitral valve insufficiency. Tricuspid Valve Normal tricuspid valve. Trivial tricuspid valve insufficiency. Unable to estimate RV systolic pressure/pulmonary artery pressure due to technically difficult study. Aortic Valve Mild aortic stenosis. Stable appearing mechanical aortic valve apparatus. Pulmonic Valve The pulmonic valve is not well visualized. Mild (1+) pulmonic valve insufficiency. Great Vessels Mildly dilated aortic root. Pericardium/Pleural No pericardial effusion. MMode/2D Measurements & Calculations LVIDd: 4.5 cm IVSd: 1.1 cm LVOT diam: 2.0 cm LVIDs: 2.4 cm LVPWd: 1.0 cm LVOT area: 3.2 cm2 RVDd: 3.8 cm FS: 47.8 % Ao root diam: 4.1 cm LAV(MOD-bp): 85.8 ml LA A4 area: 24.5 cm2 LA dimension: 3.7 cm LAV(MOD-bp) Indexed: 54.5 ml/m2 LAV(MOD-sp2): 87.8 ml LAV(MOD-sp4): 75.9 ml RA A4 area: 14.6 cm2 Time Measurements MV dec time: 0.18 sec Doppler Measurements & Calculations MV E max lynn: 112.9 cm/sec MV V2 max: 128.6 cm/sec MV P1/2t max lynn: 126.5 cm/sec MV A max lynn: 95.0 cm/sec MV max P.6 mmHg MV P1/2t: 64.8 msec MV E/A: 1.2 MV V2 mean: 70.6 cm/sec MV dec slope: 571.8 cm/sec2 MV mean P.4 mmHg MV V2 VTI: 45.7 cm MVA(P1/2t): 3.4 cm2 MVA(VTI): 1.9 cm2 Ao V2 max: 200.9 cm/sec LV V1 max: 97.2 cm/sec SV(LVOT): 85.7 ml Ao max P.2 mmHg LV V1 max P.8 mmHg Ao V2 mean: 130.9 cm/sec LV V1 mean P.4 mmHg Ao mean P.1 mmHg LV V1 mean: 72.9 cm/sec Ao V2 VTI: 48.8 cm LV V1 VTI: 26.7 cm JOHANNA(I,D): 1.8 cm2 JOHANNA(V,D): 1.6 cm2 PA V2 max: 83.7 cm/sec PI end-d lynn: 136.9 cm/sec ECHO/Echo Complete Interpretation Summary The study was technically difficult. Left ventricular systolic function is normal. The estimated ejection fraction is 60 %. Sigmoid septum. The left atrium is moderately enlarged. There is moderate to severe mitral annular calcification. Extension of the mitral annular calcification onto the base of the posterior mi tral valve leaflet. Mild mitral valve stenosis. Mild (1+) mitral valve insufficiency. Trivial tricuspid valve insufficiency. Stable appearing mechanical aortic valve apparatus. Mild aortic stenosis. Mild (1+) pulmonic valve insufficiency. Mildly dilated aortic root. Unable to estimate RV systolic pressure/pulmonary artery pressure due to techni krystle difficult study. Transmitral diastolic flow velocities suggest diastolic dysfunction (pseudonorm al pattern). Ordering Physician: Rory Mckay Referring Physician: Harley Cornejo Performed By: Rakesh Silva RCS
[2022-06-07 15:59] LABS: Thyroid Stim Hormone (TSH) 2.23 uIU/mL (0.358-3.74)
== END | disposition home or self-care (01) ==
PROVIDERS: PCP Family Medicine; Referring Provider Internal Medicine Cardiovascular Disease; Visit Provider Internal Medicine Cardiovascular Disease
DX: I25.10 Atherosclerotic heart disease of native coronary artery without angina pectoris (principal); I50.32 Chronic diastolic (congestive) heart failure; I11.0 Hypertensive heart disease with heart failure; I48.0 Paroxysmal atrial fibrillation; Z95.2 Presence of prosthetic heart valve; E78.5 Hyperlipidemia, unspecified
CPT/HCPCS: 36415; 84443; 93306

== ENCOUNTER 2022-08-07 02:10 | Emergency (ER) | payer MEDICARE, OTHER, SELFPAY ==
[2022-08-07 02:11] VITALS: BP 182/84; PULSE 72; RESP 24; TEMP 35.9; O2SAT 97; BMI 38.2
--- NOTE | 2022-08-07 02:34 | RAD_ITS ---
STUDY: X-RAY CHEST REASON FOR EXAM: Female, 76 years old patient with cough and shortness of breath. TECHNIQUE: PA and lateral views of the chest. COMPARISON: May 24, 2022. FINDINGS: The patient has had a sternotomy. There is moderate elevation of the right hemidiaphragm. The left lung is hyperexpanded. There is no demonstrated pleural abnormality. There is mild cardiac enlargement. There is questionable left basilar airspace disease versus pericardial effusion. Normal mediastinum and chica. Normal visualized pulmonary arteries. There is atherosclerotic calcification of the aortic arch with tortuosity. There is demineralization of the osseous structures. There is increased thoracic kyphosis. There is severe compression fracture of what may represent L1 with vertebral plana appearance. Patient has had a sternotomy. Normal visualized ribs, clavicles, and shoulders. There is no demonstrated abnormality of the visualized soft tissue structures of the upper abdomen. RAD/Chest PA and Lateral IMPRESSION: 1. Cardiomegaly with questionable pericardial effusion. Differential considerations include large hiatal hernia. 2. Moderate elevation of the right hemidiaphragm appears unchanged since the previous study. Electronically Signed: Dulce Corrales MD at 3:22 EST ,
--- NOTE | 2022-08-07 02:34 | ED.VIS.DYS ---
HPI History of Present Illness Chief Complaint: Shortness of Breath Informant: patient and spouse/S.O. Onset/Context/Timing Onset: Hours (1) Context: sudden, onset, activity on onset and rest Timing: Continuous Current Severity: Moderate Maximum Severity: Moderate Worsened by: Nothing Relieved by: Nothing Associated Symptoms cough Chest Pain: Positive for None Narrative Narrative: Patient has chronic postnasal drainage as well as asthma and bronchiectasis. She feels like her chronic respiratory problem has been relatively stable recently, tonight her chronic postnasal drip and congestion was occurring and she felt like it is stuck in the back of her throat and she cannot clear it, making her feel short of breath. She has a chronic cough that is no different than usual nonproductive for the most part. She does occasionally spit out postnasal drip sputum and states she feels like she needs to do that but cannot. She tried an albuterol inhaler that did not help much tonight. She is on oxygen at home, when she needs it. When she is on room air she usually is somewhere around 92-93% when she is doing well. 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 Nonrheumatic aortic valve regurgitation Nonspecific chest pain Obesity Palpitations Severe sepsis Syncope and collapse Home Medications pantoprazole 40 mg tablet,delayed release 40 mg PO BID ACID REFLUX 01/14/15 [History Last Taken 07/07/20] bupropion HCl 150 mg 24 hr tablet, extended release 150 mg PO DAILY DEPRESSION 11/15/15 [History Last Taken 07/07/20] montelukast 10 mg tablet 10 mg PO QHS ALLERGIES 05/03/17 [History Last Taken 07/06/20] potassium chloride 20 mEq tablet,extended release(part/cryst) 20 meq PO DAILY SUPPLEMENT 05/03/17 [History Last Taken 07/06/20] aspirin 81 mg chewable tablet 162 mg PO DAILY HEART HEALTH 09/04/17 [History Last Taken 07/07/20] lorazepam 0.5 mg tablet 0.5 mg PO BID PRN ANXIETY 09/04/17 [History Last Taken 07/07/20] furosemide 40 mg tablet 40 mg PO DAILY WATER PILL ##0 12/06/17 [Rx Last Taken 07/06/20] cholecalciferol (vitamin D3) 1,250 mcg (50,000 unit) capsule 50,000 unit PO FR SUPPLEMENT 06/16/19 [History Last Taken 06/25/20] acetaminophen 650 mg tablet,extended release 650 mg PO Q6H PRN BACK PAIN 07/07/20 [History Last Taken 07/07/20] albuterol sulfate 2.5 mg/3 mL (0.083 %) solution for nebulization 2.5 mg (3 mL) inhalation Q4H PRN #25 vials 05/21/21 [Rx Last Taken Unknown] triamcinolone acetonide 55 mcg nasal spray aerosol (Nasacort) 1 spray intranasal DAILY #16.9 mL 06/10/21 [Rx Last Taken Unknown] pravastatin 80 mg tablet 80 mg PO QHS CHOLESTEROL LOWERING #90 tabs 08/19/21 [Rx Last Taken Unknown] tiotropium bromide 2.5 mcg/actuation mist for inhalation (Spiriva Respimat) 2 puff inhalation QDAY #3 ea 09/07/21 [Rx Last Taken Unknown] amiodarone 200 mg tablet 100 mg PO DAILY #45 tabs 09/22/21 [Rx Last Taken Unknown] ezetimibe 10 mg tablet 10 mg PO DAILY #90 tabs 09/22/21 [Rx Last Taken Unknown] albuterol sulfate 90 mcg/actuation aerosol inhaler 2 puff inhalation Q4H PRN shortness of breath or wheezing #8.5 grams 10/04/21 [Rx Last Taken Unknown] famotidine 20 mg tablet 20 mg PO DAILY PRN 11/29/21 [History Last Taken Unknown] ferrous sulfate 325 mg (65 mg iron) tablet 325 mg PO BID 11/29/21 [History Last Taken Unknown] paroxetine HCl 20 mg tablet 10 mg PO BID 11/29/21 [History Last Taken Unknown] warfarin 2.5 mg tablet 4.5 mg PO WEFR blood thinner 11/29/21 [History Last Taken Unknown] warfarin 3 mg tablet 4.5 mg PO SUMOTUTHSA BLOOD THINNER 11/29/21 [History Last Taken Unknown] guaifenesin 1,200 mg tablet, extended release 12 hr 1,200 mg PO Q12H #60 tabs 04/04/22 [Rx Last Taken Unknown] metoprolol succinate 50 mg tablet,extended release 24 hr See Rx Instructions .Route .COMPLEX #90 tabs 07/03/22 [Rx Last Taken Unknown] fluticasone furoate 200 mcg-vilanterol 25 mcg/dose inhalation powder (Breo Ellipta) 1 inh inhalation DAILY #60 ea 07/05/22 [Rx Last Taken Unknown] doxycycline monohydrate 100 mg capsule 100 mg PO BID #14 CAPSULES 08/07/22 [Rx Last Taken Unknown] prednisone 20 mg tablet 40 mg PO DAILY #14 TABLETS 08/07/22 [Rx Last Taken Unknown] Allergy/AdvReac Type Severity Reaction Status Date / Time donepezil Allergy Severe shortness Verified 08/07/22 02:13 of breath risperidone Allergy Severe Confusion Verified 08/07/22 02:13 Sulfa (Sulfonamide Allergy Swelling Verified 08/07/22 02:13 Antibiotics) celecoxib [From Celebrex] AdvReac Severe Swelling Verified 08/07/22 02:13 dextromethorphan AdvReac Severe hallucinati Verified 08/07/22 02:13 [From Delsym] on adhesive AdvReac blisters Verified 08/07/22 02:13 codeine AdvReac Itching Verified 08/07/22 02:13 levofloxacin [From Levaquin] AdvReac pain in Verified 08/07/22 02:13 legs and swelling lisinopril AdvReac cough Verified 08/07/22 02:13 oxycodone [Oxycodone] AdvReac Itching Verified 08/07/22 02:13 oxycodone HCl [From Percocet] AdvReac Itching Verified 08/07/22 02:13 Penicillins AdvReac heart Verified 08/07/22 02:13 palpitations prochlorperazine edisylate AdvReac Low blood Verified 08/07/22 02:13 [From Compazine] pressure prochlorperazine maleate AdvReac Low blood Verified 08/07/22 02:13 [From Compazine] pressure tramadol HCl [From Ultram] AdvReac Itching Verified 08/07/22 02:13 Family History Mother Arthritis CAD (coronary artery disease) Father Arthritis High cholesterol CAD (coronary artery disease) Sister Diabetes High cholesterol Hypertension Brother Diabetes High cholesterol Hypertension Surgical History H/O aortic valve replacement History of back surgery History of foot surgery History of hysterectomy History of mechanical aortic valve replacement (~10/07/13) History of sinus surgery Social History Smoking Status: Never smoker alcohol intake: never substance use type: does not use caffeine: Yes Type: coffee what type of physical activity do you participate in: none seatbelt use: always do you feel safe at home: Yes ROS ROS ED Constitutional Constitutional ED: Denies chills or fever(s) Eyes Eyes: Denies change in vision or diplopia ENT ENT ED: Reports as per HPI, nasal congestion and post nasal drip; Denies rhinorrhea or sore throat Cardiovascular Cardiovascular: Denies chest pain or palpitations Respiratory/Chest Respiratory/Chest: Reports cough and dyspnea Gastrointestinal Gastrointestinal: Denies abdominal pain, diarrhea, nausea or vomiting Genitourinary Genitourinary ED: Denies dysuria or hematuria Musculoskeletal Musculoskeletal: Denies back pain or neck pain Integumentary Denies abscess or rash Neurologic Neurologic: Denies headache(s), paresthesias or weakness Psychiatric Psychiatric: Denies anxiety or suicidal thoughts EXAM Physical Exam Const Vital Signs: 08/07/22 02:11 08/07/22 02:40 08/07/22 03:06 Temperature 96.7 F L Temperature Source Temporal Pulse Rate 72 70 Respiratory Rate 24 H 18 Respiratory Effort Short of Breath Respiratory Pattern Tachypnea Blood Pressure 182/84 H Blood Pressure Mean 116 Pulse Ox 97 Oxygen Delivery Method Room Air Room Air Positive well nourished and well developed General Appearance ED: well developed and NAD HEENT Reports moist mucous membranes normocephalic and atraumatic Eyes PERRL and EOMs intact bilaterally Neck full ROM and supple Resp Resp Narrative: Tachypneic and speaking in 3-5 word sentences. Diffuse expiratory wheezes w/ few bibasilar rales, no rhonchi. Equal breath sounds bilaterally. Trachea midline. Cardio regular rate, regular rhythm and no murmurs GI non-tender and non-distended Auscultation: normoactive bowel sounds Palpation: soft Back/Spine no CVA tenderness General Back: other FROM Extremity normal to inspection General Extremety ED: Negative for edema, pulses abnormal or tenderness General Extremity: Negative for edema or pulses abnormal Neuro oriented x3, CN's II-XII intact bilaterally and no sensory deficits noted Sensorium / Orientation: awake and alert Motor Exam: strength 5/5 throughout Psych Mood & Affect: anxious Skin no rashes or lesions noted and no wounds MDM MDM MDM Narrative Medical decision making narrative: I reviewed an outside note from pulmonary clinic 07/05/2022. She does have history of asthma bronchiectasis, last time she had a flareup was in April and she was seen here in emergency department and put on doxycycline and prednisone. She was doing pretty well when she was seen in the office, they had to switch one of her inhalers due to insurance coverage refusing to cover the Symbicort that she was on before. She states sometimes in the office, she sounds clear and other times she sounds crackly. She does not sound clear today as I discussed with her, she does have some thick mucus in the back of her throat, but it is thin stream of it, and does not appear to be obstructing anything she has no stridor, I told her I do not have the ability to easily suction this out and I can offer her something to drink or nasal liquids for her to aspirate but I do not think that will necessarily help her, so I would treat her wheezing with breathing treatments. After the nebulizer treatment, respiratory used a flutter valve with it to see if that would help break up mucus and help her, she felt much better. She is ambulatory to and from the restroom without any difficulty or dyspnea, she is not hypoxic. She agrees that now she notices she had been having some chest tightness which is greatly let up after these treatments. She has a machine at home. She agrees with me now that this seems more in her chest. She has only had symptoms for a few hours. When I discussed options including no prescriptions, or prescription for antibiotic and prednisone, she decided to take me up on a wait and see prescription for antibiotics and prednisone, seeing how she does for the next day or so before deciding whether to take them or not. Follow-up advised, she is comfortable with that plan. Radiography Diagnostic Testing: Clinical Impression(s) from Imaging Studies Chest X-Ray 08/07/22 02:34 IMPRESSION: 1. Cardiomegaly with questionable pericardial effusion. Differential considerations include large hiatal hernia. 2. Moderate elevation of the right hemidiaphragm appears unchanged since the previous study. Electronically Signed: Dulce Corrales MD at 3:22 EST , Discharge Plan Triage Chief Complaint: Shortness of Breath ED Provider: Randall Mack Dx/Rx/DC Orders Clinical Impression: Bronchiectasis with acute exacerbation Instructions: Bronchiectasis Dc Prescriptions: New prednisone 20 mg tablet 40 mg PO DAILY Qty: 14 0RF doxycycline monohydrate 100 mg capsule 100 mg PO BID Qty: 14 0RF No Action cholecalciferol (vitamin D3) 50,000 unit capsule 50,000 unit PO FR pravastatin 80 mg tablet 80 mg PO QHS Qty: 90 3RF albuterol sulfate 90 mcg/actuation HFA aerosol inhaler 2 puff inhalation Q4H PRN (Reason: shortness of breath or wheezing) Qty: 8.5 6RF Rx Instructions: administer with spacer ferrous sulfate 325 mg (65 mg iron) tablet 325 mg PO BID Label Comments: TAKE 1 TABLET BY MOUTH TWICE DAILY WITH MEALS guaifenesin 1,200 mg tablet extended release 12hr 1,200 mg PO Q12H Qty: 60 6RF fluticasone furoate-vilanterol [Breo Ellipta] 200-25 mcg/dose blister with device 1 inh inhalation DAILY Qty: 60 6RF pantoprazole 40 MG tablet 40 mg PO BID Label Comments: stomach aspirin 81 MG tablet,chewable 162 mg PO DAILY Label Comments: blood thinner/heart lorazepam 0.5 MG tablet 0.5 mg PO BID PRN (Reason: ANXIETY) Label Comments: anxiety bupropion HCl 150 MG tablet extended release 24 hr 150 mg PO DAILY Label Comments: depression potassium chloride 20 MEQ tablet 20 meq PO DAILY montelukast 10 MG tablet 10 mg PO QHS furosemide 40 MG tablet 40 mg PO DAILY Qty: 0 0RF acetaminophen 650 MG tablet extended release 650 mg PO Q6H PRN (Reason: BACK PAIN) warfarin 2.5 mg tablet 4.5 mg PO WEFR Rx Instructions: Managed by PCP warfarin 3 mg tablet 4.5 mg PO SUMOTUTHSA Rx Instructions: Managed by PCP famotidine 20 mg tablet 20 mg PO DAILY PRN Label Comments: TAKE 1 TABLET BY MOUTH AT BEDTIME NEEDED paroxetine HCl 20 mg tablet 10 mg PO BID albuterol sulfate 2.5 MG/3 ML solution for nebulization 2.5 mg inhalation Q4H PRN Qty: 25 0RF Rx Instructions: Use q4 hours and PRN for wheezing triamcinolone acetonide [Nasacort] 55 mcg aerosol,spray 1 spray INTRANASAL DAILY Qty: 16.9 6RF Spiriva Respimat 2.5 mcg/actuation mist 2 puff inhalation QDAY Qty: 3 3RF Rx Instructions: administer at approximately the same time(s) each day amiodarone 200 mg tablet 100 mg PO DAILY Qty: 45 3RF ezetimibe 10 mg tablet 10 mg PO DAILY Qty: 90 3RF metoprolol succinate 50 mg tablet extended release 24 hr See Rx Instructions .ROUTE .COMPLEX Qty: 90 3RF Dose Instruction: TAKE 1 TABLET BY MOUTH DAILY FOR BLOOD PRESSURE Rx Instructions: TAKE 1 TABLET BY MOUTH DAILY FOR BLOOD PRESSURE Primary Care Provider: Harley Cornejo Referrals: Harley Cornejo MD [Primary Care Provider] - 3-5 Days if not improving (or Dr. Hall) Activity Restrictions/Additional Instructions: See how your breathing is for the next day or 2, using your albuterol machine as needed for recurrent issues. If you feel like you are needing to use more than 3 or 4 treatments per day and/or you are coughing worse, fill and take the prescriptions as prescribed until finished. Disposition Disposition: Home, Self Care
[2022-08-07] MEDS: Albuterol 2.5 MG/3 ML VIAL.NEB. INHALATION (02:39)
[2022-08-07] MEDS: Ipratropium/Albuterol Sulfate 3 ML AMPUL.NEB INHALATION (02:39)
[2022-08-07 02:40] VITALS: PULSE 70; RESP 18
[2022-08-07 03:06] VITALS: O2SAT 91
[2022-08-07 04:30] VITALS: BP 129/56; PULSE 65; RESP 18; O2SAT 91
== END 2022-08-07 04:35 | disposition home or self-care (01) ==
PROVIDERS: Emergency Provider Emergency Medicine; PCP Family Medicine; Visit Provider Emergency Medicine
DX: J47.1 Bronchiectasis with (acute) exacerbation (principal); I11.0 Hypertensive heart disease with heart failure; I50.32 Chronic diastolic (congestive) heart failure; I48.20 Chronic atrial fibrillation, unspecified; E78.5 Hyperlipidemia, unspecified; I25.10 Atherosclerotic heart disease of native coronary artery without angina pectoris; J45.909 Unspecified asthma, uncomplicated; K21.9 Gastro-esophageal reflux disease without esophagitis; E66.9 Obesity, unspecified; Z79.899 Other long term (current) drug therapy; Z79.82 Long term (current) use of aspirin; Z95.2 Presence of prosthetic heart valve; Z79.01 Long term (current) use of anticoagulants
CPT/HCPCS: 71046; 94640; 94667; 99282

== ENCOUNTER 2022-08-12 14:48 | Emergency (ER) | payer MEDICARE, OTHER, SELFPAY ==
[2022-08-12 14:48] VITALS: BP 194/102; PULSE 92; RESP 15; TEMP 36; O2SAT 94; BMI 26.4
--- NOTE | 2022-08-12 15:15 | EKG12_ITS ---
Test Reason : Blood Pressure : / mmHG Vent. Rate : 084 BPM Atrial Rate : 084 BPM P-R Int : 096 ms QRS Dur : 080 ms QT Int : 398 ms P-R-T Axes : 000 001 054 degrees QTc Int : 470 ms Sinus rhythm with short CO Otherwise normal ECG Confirmed by TICO MAC, JARRED ([id number]), fan mail editor BOBBY CARIAS ([id number]) on 08/14/2022 11:16:16 AM Referred By: Confirmed By:JARRED DOSHI MD
--- NOTE | 2022-08-12 15:16 | ED.VIS.DYS ---
HPI History of Present Illness Chief Complaint: Shortness of Breath Informant: patient and spouse/S.O. Narrative Narrative: Patient presents with mild increase of dyspnea. History is obtained through patient but most of the time she refers to her for any specific answer including on her own symptoms. This patient has chronic bronchiectasis, asthma, COPD. She is on oxygen at night but oftentimes does not wear it during the day. She does have a nebulizer but there is disagreement between her and her what medicine she uses in it. She states that about 2 or 3 days ago she has had increased trouble breathing. Her states it is closer to a week. She was seen here about 5 days ago. She states she is coughing more but there is no change in sputum. She has never had fevers. No chills. No nausea vomiting. No myalgias. She states she has been using her nebulizer less because she first thought she was getting better so she stopped using it. She was also seen and prescribed prednisone and doxycycline that she was going to start if she worsened. But she never filled these or started these medicines either. I am able to get from her that she had her INR checked yesterday at [facility] and it was 2.5. She is eating and drinking. She does not feel weaker than normal. Her biggest complaint is that she has some dyspnea. She does not think she is wheezing. However, I can hear wheezes when I go in the room. Her has evidently been encouraging her to use the nebulizer but she did not do it because she thought she was getting better without it. 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 Nonrheumatic aortic valve regurgitation Nonspecific chest pain Obesity Palpitations Severe sepsis Syncope and collapse Home Medications pantoprazole 40 mg tablet,delayed release 40 mg PO BID ACID REFLUX 01/14/15 [History Last Taken 07/07/20] bupropion HCl 150 mg 24 hr tablet, extended release 150 mg PO DAILY DEPRESSION 11/15/15 [History Last Taken 07/07/20] montelukast 10 mg tablet 10 mg PO QHS ALLERGIES 05/03/17 [History Last Taken 07/06/20] potassium chloride 20 mEq tablet,extended release(part/cryst) 20 meq PO DAILY SUPPLEMENT 05/03/17 [History Last Taken 07/06/20] aspirin 81 mg chewable tablet 162 mg PO DAILY HEART HEALTH 09/04/17 [History Last Taken 07/07/20] lorazepam 0.5 mg tablet 0.5 mg PO BID PRN ANXIETY 09/04/17 [History Last Taken 07/07/20] furosemide 40 mg tablet 40 mg PO DAILY WATER PILL ##0 12/06/17 [Rx Last Taken 07/06/20] cholecalciferol (vitamin D3) 1,250 mcg (50,000 unit) capsule 50,000 unit PO FR SUPPLEMENT 06/16/19 [History Last Taken 06/25/20] acetaminophen 650 mg tablet,extended release 650 mg PO Q6H PRN BACK PAIN 07/07/20 [History Last Taken 07/07/20] albuterol sulfate 2.5 mg/3 mL (0.083 %) solution for nebulization 2.5 mg (3 mL) inhalation Q4H PRN #25 vials 05/21/21 [Rx Last Taken Unknown] triamcinolone acetonide 55 mcg nasal spray aerosol (Nasacort) 1 spray intranasal DAILY #16.9 mL 06/10/21 [Rx Last Taken Unknown] pravastatin 80 mg tablet 80 mg PO QHS CHOLESTEROL LOWERING #90 tabs 08/19/21 [Rx Last Taken Unknown] tiotropium bromide 2.5 mcg/actuation mist for inhalation (Spiriva Respimat) 2 puff inhalation QDAY #3 ea 09/07/21 [Rx Last Taken Unknown] amiodarone 200 mg tablet 100 mg PO DAILY #45 tabs 09/22/21 [Rx Last Taken Unknown] ezetimibe 10 mg tablet 10 mg PO DAILY #90 tabs 09/22/21 [Rx Last Taken Unknown] albuterol sulfate 90 mcg/actuation aerosol inhaler 2 puff inhalation Q4H PRN shortness of breath or wheezing #8.5 grams 10/04/21 [Rx Last Taken Unknown] famotidine 20 mg tablet 20 mg PO DAILY PRN 11/29/21 [History Last Taken Unknown] ferrous sulfate 325 mg (65 mg iron) tablet 325 mg PO BID 11/29/21 [History Last Taken Unknown] paroxetine HCl 20 mg tablet 10 mg PO BID 11/29/21 [History Last Taken Unknown] warfarin 2.5 mg tablet 4.5 mg PO WEFR blood thinner 11/29/21 [History Last Taken Unknown] warfarin 3 mg tablet 4.5 mg PO SUMOTUTHSA BLOOD THINNER 11/29/21 [History Last Taken Unknown] guaifenesin 1,200 mg tablet, extended release 12 hr 1,200 mg PO Q12H #60 tabs 04/04/22 [Rx Last Taken Unknown] metoprolol succinate 50 mg tablet,extended release 24 hr See Rx Instructions .Route .COMPLEX #90 tabs 07/03/22 [Rx Last Taken Unknown] doxycycline monohydrate 100 mg capsule 100 mg PO BID #14 CAPSULES 08/07/22 [Rx Last Taken Unknown] fluticasone furoate 200 mcg-vilanterol 25 mcg/dose inhalation powder (Breo Ellipta) 1 inh inhalation DAILY #60 ea 08/07/22 [Rx Last Taken Unknown] prednisone 20 mg tablet 40 mg PO DAILY #14 TABLETS 08/07/22 [Rx Last Taken Unknown] Allergy/AdvReac Type Severity Reaction Status Date / Time donepezil Allergy Severe shortness Verified 08/12/22 14:51 of breath risperidone Allergy Severe Confusion Verified 08/12/22 14:51 Sulfa (Sulfonamide Allergy Swelling Verified 08/12/22 14:51 Antibiotics) celecoxib [From Celebrex] AdvReac Severe Swelling Verified 08/12/22 14:51 dextromethorphan AdvReac Severe hallucinati Verified 08/12/22 14:51 [From Delsym] on adhesive AdvReac blisters Verified 08/12/22 14:51 codeine AdvReac Itching Verified 08/12/22 14:51 levofloxacin [From Levaquin] AdvReac pain in Verified 08/12/22 14:51 legs and swelling lisinopril AdvReac cough Verified 08/12/22 14:51 oxycodone [Oxycodone] AdvReac Itching Verified 08/12/22 14:51 oxycodone HCl [From Percocet] AdvReac Itching Verified 08/12/22 14:51 Penicillins AdvReac heart Verified 08/12/22 14:51 palpitations prochlorperazine edisylate AdvReac Low blood Verified 08/12/22 14:51 [From Compazine] pressure prochlorperazine maleate AdvReac Low blood Verified 08/12/22 14:51 [From Compazine] pressure tramadol HCl [From Ultram] AdvReac Itching Verified 08/12/22 14:51 Family History Mother Arthritis CAD (coronary artery disease) Father Arthritis High cholesterol CAD (coronary artery disease) Sister Diabetes High cholesterol Hypertension Brother Diabetes High cholesterol Hypertension Surgical History H/O aortic valve replacement History of back surgery History of foot surgery History of hysterectomy History of mechanical aortic valve replacement (~10/07/13) History of sinus surgery Social History Smoking Status: Never smoker alcohol intake: never substance use type: does not use caffeine: Yes Type: coffee what type of physical activity do you participate in: none seatbelt use: always do you feel safe at home: Yes ROS ROS ED Constitutional Constitutional ED: Denies chills or fever(s) Eyes Eyes: Denies change in vision ENT ENT ED: Denies rhinorrhea Cardiovascular Cardiovascular: Denies chest pain, palpitations or racing heartbeat Respiratory/Chest Respiratory/Chest: Reports cough and dyspnea; Denies sputum Gastrointestinal Gastrointestinal: Denies abdominal pain, melena, nausea or vomiting Genitourinary Genitourinary ED: Denies hematuria Musculoskeletal Musculoskeletal: Denies myalgias Integumentary Denies rash Neurologic Neurologic: Denies headache(s) Psychiatric Psychiatric: Reports anxiety Endocrine Endocrinology: Denies polydipsia or polyuria Hematologic/Lymphatic Hematologic/Lymphatic: Denies lymphadenopathy EXAM Physical Exam Narrative Exam Narrative: Patient awake alert. She is comfortable in the room not on oxygen. Oxygen saturation is abnormal on room air at about 94 5% which evidently is normal for her. I can hear wheezing in the room. HEENT shows no sign of trauma or pallor. Conjunctive are not pale. Mucous membranes are moist. I see no sign of bleeding. I do not see JVD in the neck exam. Lungs have diffuse expiratory wheezing throughout. There are a few coarse breath sounds more consistent with her bronchiectasis also. I do not hear any focal rhonchi. No rales. Heart is regular. There is a prominent mechanical valve sound. Peripheral pulses are equal. Abdomen is soft nondistended nontender. There is no CVA or flank tenderness. Extremities do not show any notable edema. Patient is awake alert and oriented x3. She is not a good informant for her illnesses but she is oriented and at baseline. Const Vital Signs: 08/12/22 14:48 08/12/22 15:42 08/12/22 15:42 Temperature 96.8 F L Temperature Source Temporal Pulse Rate 92 84 85 Respiratory Rate 15 18 18 Respiratory Pattern Normal Normal Blood Pressure 194/102 H Blood Pressure Mean 132 Pulse Ox 94 Oxygen Delivery Method Room Air MDM MDM MDM Narrative Medical decision making narrative: My independent interpretation of the patient's single view AP chest x-ray shows chronic changes but no sign of acute infiltrate or pneumothorax. Cardiac silhouette is slightly exaggerated but this is similar to prior studies done on the ninth of this month and on May 24, 2022. Patient's blood work show high white count but this is similar to her recent check. It sounds like she has not been on steroids recently but this could be secondary to infection or demargination. Patient is also a poor informant and certainly possible that she could have taken steroids. Hemoglobin is normal. Platelets are normal. Electrolytes show no acute abnormality. Minimal renal dysfunction which is really not new. INR was just on the low side at 2.3. This is managed through [facility] and they will follow up with them. They just had checked yesterday and they are due for 1 in 2 days. Patient's recheck. She is moving much more air. X-ray shows no infiltrate. Patient has a nebulizer at home with meds but has not been using it much. She is encouraged to use this. She is encouraged to use her oxygen if she feels dyspneic. She is also encouraged to use the medications that were prescribed last visit. It is worth starting them at this time. She wants to go home and is comfortable with that. Lab Data Attestation: I reviewed the patient's lab results. Labs: Laboratory Results - last 24 hr 08/12/22 08/12/22 08/12/22 15:25 15:25 15:35 WBC 17.2 H RBC 5.20 Hgb 14.8 Hct 48.2 H MCV 92.7 MCH 28.5 MCHC 30.7 L RDW Std Deviation 45.5 H RDW Coeff of Loki 13.3 Plt Count 318 MPV 9.9 Immature Gran % (Auto) 0.600 Neut % (Auto) 90.6 H Lymph % (Auto) 4.2 L Mayes % (Auto) 3.8 Eos % (Auto) 0.5 Baso % (Auto) 0.3 Absolute Neuts (auto) 15.6 H Absolute Lymphs (auto) 0.72 L Nucleated RBC % 0 PT 25.3 H INR 2.3 Sodium 140 Potassium 3.6 Chloride 102 Carbon Dioxide 31.0 Anion Gap 7 BUN 23 H Creatinine 1.07 H Estim Creat Clear Calc 31.63 Est GFR (MDRD) Af Amer 64 Est GFR (MDRD) Non-Af 53 L BUN/Creatinine Ratio 21.5 H Glucose 86 Calcium 9.6 Radiography Diagnostic Testing: Clinical Impression(s) from Imaging Studies Chest X-Ray 08/12/22 15:40 IMPRESSION: No acute cardiopulmonary processes. Electronically Signed: Juanita Stack MD at 16:05 EST , EKG Initial EKG: Comments: My independent interpretation of EKG done for dyspnea shows sinus rhythm. Overall rate of 84. No ectopy is noted. There is some baseline variation but no acute ST elevation or depression. NC interval was read as short by the computer but it visually looks really normal to me. QRS duration is normal. QTc is a bit toward the longer end at 470 ms. Overall, the EKG is similar to a prior 24 May 2022. Discharge Plan Triage Chief Complaint: Shortness of Breath ED Provider: Ricardo Reyes Dx/Rx/DC Orders Clinical Impression: Asthma exacerbation, Bronchiectasis Instructions: ED Asthma, Acute (Adult) Prescriptions: No Action cholecalciferol (vitamin D3) 50,000 unit capsule 50,000 unit PO FR pravastatin 80 mg tablet 80 mg PO QHS Qty: 90 3RF albuterol sulfate 90 mcg/actuation HFA aerosol inhaler 2 puff inhalation Q4H PRN (Reason: shortness of breath or wheezing) Qty: 8.5 6RF Rx Instructions: administer with spacer ferrous sulfate 325 mg (65 mg iron) tablet 325 mg PO BID Label Comments: TAKE 1 TABLET BY MOUTH TWICE DAILY WITH MEALS guaifenesin 1,200 mg tablet extended release 12hr 1,200 mg PO Q12H Qty: 60 6RF pantoprazole 40 MG tablet 40 mg PO BID Label Comments: stomach aspirin 81 MG tablet,chewable 162 mg PO DAILY Label Comments: blood thinner/heart lorazepam 0.5 MG tablet 0.5 mg PO BID PRN (Reason: ANXIETY) Label Comments: anxiety bupropion HCl 150 MG tablet extended release 24 hr 150 mg PO DAILY Label Comments: depression potassium chloride 20 MEQ tablet 20 meq PO DAILY montelukast 10 MG tablet 10 mg PO QHS furosemide 40 MG tablet 40 mg PO DAILY Qty: 0 0RF acetaminophen 650 MG tablet extended release 650 mg PO Q6H PRN (Reason: BACK PAIN) warfarin 2.5 mg tablet 4.5 mg PO WEFR Rx Instructions: Managed by PCP warfarin 3 mg tablet 4.5 mg PO SUMOTUTHSA Rx Instructions: Managed by PCP famotidine 20 mg tablet 20 mg PO DAILY PRN Label Comments: TAKE 1 TABLET BY MOUTH AT BEDTIME NEEDED paroxetine HCl 20 mg tablet 10 mg PO BID albuterol sulfate 2.5 MG/3 ML solution for nebulization 2.5 mg inhalation Q4H PRN Qty: 25 0RF Rx Instructions: Use q4 hours and PRN for wheezing prednisone 20 mg tablet 40 mg PO DAILY Qty: 14 0RF doxycycline monohydrate 100 mg capsule 100 mg PO BID Qty: 14 0RF triamcinolone acetonide [Nasacort] 55 mcg aerosol,spray 1 spray INTRANASAL DAILY Qty: 16.9 6RF Spiriva Respimat 2.5 mcg/actuation mist 2 puff inhalation QDAY Qty: 3 3RF Rx Instructions: administer at approximately the same time(s) each day amiodarone 200 mg tablet 100 mg PO DAILY Qty: 45 3RF ezetimibe 10 mg tablet 10 mg PO DAILY Qty: 90 3RF metoprolol succinate 50 mg tablet extended release 24 hr See Rx Instructions .ROUTE .COMPLEX Qty: 90 3RF Dose Instruction: TAKE 1 TABLET BY MOUTH DAILY FOR BLOOD PRESSURE Rx Instructions: TAKE 1 TABLET BY MOUTH DAILY FOR BLOOD PRESSURE fluticasone furoate-vilanterol [Breo Ellipta] 200-25 mcg/dose blister with device 1 inh inhalation DAILY Qty: 60 11RF Primary Care Provider: Harley Cornejo Referrals: Harley Cornejo MD [Primary Care Provider] - 3-5 Days if not improving Activity Restrictions/Additional Instructions: Please take the medicines that were prescribed for you at the last visit. Disposition Disposition: Home, Self Care
[2022-08-12] MEDS: Albuterol 2.5 MG/3 ML VIAL.NEB. INHALATION (15:28)
[2022-08-12] MEDS: MethylPREDNISolone 125 MG/2 ML Vial IV (15:28)
[2022-08-12] MEDS: Ipratropium/Albuterol Sulfate 3 ML AMPUL.NEB INHALATION (15:28)
[2022-08-12 15:33] LABS: Absolute Lymphocyte Count 0.72 X10^3/uL (0.83-4.51); Absolute Neutrophil Count 15.6 X10^3/uL (2.0-7.7); Basophil# 0.06 X10^3/uL; Basophil% 0.3 % (0-1); Eosinophil# 0.08 X10^3/uL; Eosinophils% 0.5 % (0-5); Hematocrit 48.2 % (37-47); Hemoglobin 14.8 g/dL (12.0-15.0); Lymphocyte # 0.72 X10^3/ul (0.83-4.51); Lymphocyte % 4.2 % (19-41); Mean Corp Hgb Conc 30.7 g/dL (32-36); Mean Corpuscular Hgb 28.5 pg (27.0-32.0); Mean Corpuscular Volume 92.7 fL (81-99); Mean Platelet Vol. 9.9 fl (6.2-12.0); Monocyte# 0.66 X10^3/uL; Monocyte% 3.8 % (0-10); NRBC Flagged by Analyzer 0 % (0-5); Neutrophil # 15.55 X10^3/uL (2.7-7.7); Neutrophil % 90.6 % (47-70); Platelet Count 318 K/mm3 (150-450); RBC Distribution Width CV 13.3 % (11.6-14.6); RBC Distribution Width SD 45.5 fl (35.1-43.9); White Blood Count 17.2 K/mm3 (4.4-11.0)
--- NOTE | 2022-08-12 15:40 | RAD_ITS ---
INDICATION: cough EXAMINATION/TECHNIQUE: X-RAY - XR Chest 1 View COMPARISON: August 07, 2022. FINDINGS: LINES/DEVICES: There are sternotomy wires in place. LUNGS: There is stable elevation of the right hemidiaphragm. There is no new focal consolidation. MEDIASTINUM AND CARDIOVASCULAR STRUCTURES: Cardiac silhouette not enlarged. Central airways and mediastinal contour are unremarkable. BONES AND SOFT TISSUES: Unremarkable. RAD/Chest 1 View (Portable) IMPRESSION: No acute cardiopulmonary processes. Electronically Signed: Juanita Stack MD at 16:05 EST ,
[2022-08-12 15:42] VITALS: PULSE 84; PULSE 85; RESP 18
[2022-08-12 15:49] LABS: Anion Gap 7 (5-15); BUN 23 mg/dL (7-18); BUN/Creat Ratio 21.5 RATIO (10-20); Calcium,Total 9.6 mg/dL (8.5-10.1); Chloride 102 mmol/L (98-107); Creatinine, Serum 1.07 mg/dL (0.55-1.02); EST Glomerular Filtration Rate 53 mL/min (>60); Est Glom Filt Rate - Afr Amer 64 mL/min (>60); Estimated Creatinine Clearance 31.63 ml/min; Glucose 86 mg/dL (74-106); Potassium 3.6 mmol/L (3.5-5.1); Sodium Level 140 mmol/L (136-145)
[2022-08-12 15:50] VITALS: O2SAT 90
[2022-08-12 16:18] LABS: International Normalized Ratio 2.3; Prothrombin Time (Protime)PT. 25.3 SECONDS (11.7-14.9)
[2022-08-12] MEDS: Doxycycline 100 MG CAPSULE PO (16:40)
[2022-08-12 16:49] VITALS: BP 165/76; PULSE 85; RESP 16; O2SAT 90
== END 2022-08-12 16:50 | disposition home or self-care (01) ==
PROVIDERS: Emergency Provider Emergency Medicine; PCP Family Medicine; Visit Provider Emergency Medicine
DX: J47.9 Bronchiectasis, uncomplicated (principal); I11.0 Hypertensive heart disease with heart failure; I50.32 Chronic diastolic (congestive) heart failure; I25.10 Atherosclerotic heart disease of native coronary artery without angina pectoris; E78.5 Hyperlipidemia, unspecified; N28.9 Disorder of kidney and ureter, unspecified; F41.9 Anxiety disorder, unspecified
CPT/HCPCS: 71045; 80048; 85025; 85610; 93005; 94640; 99285; A4216

== ENCOUNTER 2022-09-03 16:56 | Emergency (ER) | payer MEDICARE, OTHER, SELFPAY ==
[2022-09-03] VITALS (8 sets, daily range): BP systolic 133–170; BP diastolic 69–91; PULSE 74–82; RESP 16–22; TEMP 37.1; O2SAT 92–97; BMI 27.1
--- NOTE | 2022-09-03 17:08 | EKG12_ITS ---
Test Reason : SOB Blood Pressure : / mmHG Vent. Rate : 075 BPM Atrial Rate : 075 BPM P-R Int : 140 ms QRS Dur : 082 ms QT Int : 402 ms P-R-T Axes : 000 -05 059 degrees QTc Int : 448 ms Normal sinus rhythm Normal ECG Confirmed by TICO MAC, JARRED ([id number]), legal editor BOBBY CARIAS [id number]) on 09/04/2022 1:11:29 PM Referred By: Confirmed By:JARRED DOSHI MD
--- NOTE | 2022-09-03 17:16 | EDS_ITS ---
HPI History of Present Illness Chief Complaint: Shortness of Breath Detail of Chief Complaint: Patient was advised to come to the emergency department by nurse on-call fo Informant: patient and spouse/S.O. Onset/Context/Timing Onset: Days Context: gradual Timing: Continuous and Waxes and wanes Quality: Positive for Dyspnea on exertion, Orthopnea (Patient has slept in a bed at 45 degree angle for the past 2 to 3 years) and Wheezing; Negative for PND Current Severity: Mild Maximum Severity: Severe Worsened by: Exertion, Lying flat and Coughing Relieved by: Nothing and - (Patient states she wears oxygen at night. 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 She called her doctors office for an appointment for tomorrow. After the nurse planer stone spoke to her she recommended she come to the emergency department because she was short of breath when she was talking over the phone. Patient denies history of PE or DVT. Patient denies leg pain, swelling discoloration. Patient denies headache, visual, ocular auditory symptoms. Patient does have a productive cough of yellow to green sputum. It is not unusual for her to have a productive cough of colored sputum. She denies abdominal pain, nausea, vomiting or diarrhea. She denies black or maroon-colored stool. She denies dysuria, frequency, urgency or hematuria. PE Risk Factors: Negative for Cancer, OCP + Smoking + > 35, Prior DVT or PE, Recent immobilization, Recent surgery or Recent travel Prior similar symptoms: Yes (COPD) Recent Illness/Hospitalization: No PFSH [facility] Medical History Allergic rhinitis Aneurysm, thoracic aortic Anxiety Aortic stenosis Asthma Atherosclerotic heart disease of [place] coronary artery without angina pectoris Bronchiectasis CAP (community acquired pneumonia) Chronic a-fib Chronic anticoagulation Chronic diastolic heart failure Chronic sinusitis Cough Depression Essential hypertension Fatigue GERD (gastroesophageal reflux disease) Hemoptysis Hiatal hernia History of cardioversion (~07/08/20) Hyperlipidemia Hypertension Hypoxemia 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 Nonrheumatic aortic valve regurgitation Nonspecific chest pain Obesity Palpitations Severe sepsis Syncope and collapse Home Medications pantoprazole 40 mg tablet,delayed release 40 mg PO BID ACID REFLUX 01/14/15 [History Last Taken 07/07/20] bupropion HCl 150 mg 24 hr tablet, extended release 150 mg PO DAILY DEPRESSION 11/15/15 [History Last Taken 07/07/20] montelukast 10 mg tablet 10 mg PO QHS ALLERGIES 05/03/17 [History Last Taken 07/06/20] potassium chloride 20 mEq tablet,extended release(part/cryst) 20 meq PO DAILY SUPPLEMENT 05/03/17 [History Last Taken 07/06/20] aspirin 81 mg chewable tablet 162 mg PO DAILY HEART HEALTH 09/04/17 [History Last Taken 07/07/20] lorazepam 0.5 mg tablet 0.5 mg PO BID PRN ANXIETY 09/04/17 [History Last Taken 07/07/20] furosemide 40 mg tablet 40 mg PO DAILY WATER PILL ##0 12/06/17 [Rx Last Taken 07/06/20] cholecalciferol (vitamin D3) 1,250 mcg (50,000 unit) capsule 50,000 unit PO FR SUPPLEMENT 06/16/19 [History Last Taken 06/25/20] acetaminophen 650 mg tablet,extended release 650 mg PO Q6H PRN BACK PAIN 07/07/20 [History Last Taken 07/07/20] albuterol sulfate 2.5 mg/3 mL (0.083 %) solution for nebulization 2.5 mg (3 mL) inhalation Q4H PRN #25 vials 05/21/21 [Rx Last Taken Unknown] triamcinolone acetonide 55 mcg nasal spray aerosol (Nasacort) 1 spray intranasal DAILY #16.9 mL 06/10/21 [Rx Last Taken Unknown] tiotropium bromide 2.5 mcg/actuation mist for inhalation (Spiriva Respimat) 2 puff inhalation QDAY #3 ea 09/07/21 [Rx Last Taken Unknown] ezetimibe 10 mg tablet 10 mg PO DAILY #90 tabs 09/22/21 [Rx Last Taken Unknown] albuterol sulfate 90 mcg/actuation aerosol inhaler 2 puff inhalation Q4H PRN shortness of breath or wheezing #8.5 grams 10/04/21 [Rx Last Taken Unknown] famotidine 20 mg tablet 20 mg PO DAILY PRN 11/29/21 [History Last Taken Unknown] ferrous sulfate 325 mg (65 mg iron) tablet 325 mg PO BID 11/29/21 [History Last Taken Unknown] paroxetine HCl 20 mg tablet 10 mg PO BID 11/29/21 [History Last Taken Unknown] warfarin 2.5 mg tablet 4.5 mg PO WEFR blood thinner 11/29/21 [History Last Taken Unknown] warfarin 3 mg tablet 4.5 mg PO SUMOTUTHSA BLOOD THINNER 11/29/21 [History Last Taken Unknown] guaifenesin 1,200 mg tablet, extended release 12 hr 1,200 mg PO Q12H #60 tabs 04/04/22 [Rx Last Taken Unknown] metoprolol succinate 50 mg tablet,extended release 24 hr See Rx Instructions .Route .COMPLEX #90 tabs 07/03/22 [Rx Last Taken Unknown] doxycycline monohydrate 100 mg capsule 100 mg PO BID #14 CAPSULES 08/07/22 [Rx Last Taken Unknown] fluticasone furoate 200 mcg-vilanterol 25 mcg/dose inhalation powder (Breo Ellipta) 1 inh inhalation DAILY #60 ea 08/07/22 [Rx Last Taken Unknown] prednisone 20 mg tablet 40 mg PO DAILY #14 TABLETS 08/07/22 [Rx Last Taken Unknown] amiodarone 200 mg tablet 100 mg PO DAILY #45 tabs 08/28/22 [Rx Last Taken Unknown] pravastatin 80 mg tablet 80 mg PO QHS CHOLESTEROL LOWERING #90 tabs 08/28/22 [Rx Last Taken Unknown] doxycycline monohydrate 100 mg capsule 100 mg PO BID #14 CAPSULES 09/03/22 [Rx Last Taken Unknown] prednisone 20 mg tablet 60 mg PO DAILY #15 TABLETS 09/03/22 [Rx Last Taken Unknown] Allergy/AdvReac Type Severity Reaction Status Date / Time donepezil Allergy Severe shortness Verified 09/03/22 16:59 of breath risperidone Allergy Severe Confusion Verified 09/03/22 16:59 Sulfa (Sulfonamide Allergy Swelling Verified 09/03/22 16:59 Antibiotics) celecoxib [From Celebrex] AdvReac Severe Swelling Verified 09/03/22 16:59 dextromethorphan AdvReac Severe hallucinati Verified 09/03/22 16:59 [From Delsym] on adhesive AdvReac blisters Verified 09/03/22 16:59 codeine AdvReac Itching Verified 09/03/22 16:59 levofloxacin [From Levaquin] AdvReac pain in Verified 09/03/22 16:59 legs and swelling lisinopril AdvReac cough Verified 09/03/22 16:59 oxycodone [Oxycodone] AdvReac Itching Verified 09/03/22 16:59 oxycodone HCl [From Percocet] AdvReac Itching Verified 09/03/22 16:59 Penicillins AdvReac heart Verified 09/03/22 16:59 palpitations prochlorperazine edisylate AdvReac Low blood Verified 09/03/22 16:59 [From Compazine] pressure prochlorperazine maleate AdvReac Low blood Verified 09/03/22 16:59 [From Compazine] pressure tramadol HCl [From Ultram] AdvReac Itching Verified 09/03/22 16:59 Family History Mother Arthritis CAD (coronary artery disease) Father Arthritis High cholesterol CAD (coronary artery disease) Sister Diabetes High cholesterol Hypertension Brother Diabetes High cholesterol Hypertension Surgical History H/O aortic valve replacement History of back surgery History of foot surgery History of hysterectomy History of mechanical aortic valve replacement (~10/07/13) History of sinus surgery Social History (Updated 09/03/22 @ 17:[address] Ben Rock MD) household members: spouse Smoking Status: Never smoker alcohol intake: never substance use type: does not use caffeine: Yes Type: coffee what type of physical activity do you participate in: none seatbelt use: always do you feel safe at home: Yes ROS ROS ED Constitutional Constitutional ED: Denies chills, fever(s), sweats or weight loss Eyes Eyes: Denies blurry vision, change in vision or diplopia ENT ENT ED: Reports rhinorrhea and sore throat; Denies ear pain Cardiovascular Cardiovascular: Denies chest pain, orthopnea, palpitations, paroxysmal nocturnal dyspnea or racing heartbeat Respiratory/Chest Respiratory/Chest: Reports cough, dyspnea, dyspnea on exertion and sputum; Denies orthopnea or paroxysmal nocturnal dyspnea Gastrointestinal Gastrointestinal: Denies abdominal pain, melena, nausea or vomiting Genitourinary Genitourinary ED: Denies dysuria, hematuria or urinary frequency Musculoskeletal Musculoskeletal: Denies arthralgias, back pain, myalgias or neck pain Integumentary Denies Abrasions or rash Neurologic Neurologic: Reports weakness; Denies headache(s) or paresthesias Endocrine Endocrinology: Denies cold intolerance or heat intolerance Hematologic/Lymphatic Hematologic/Lymphatic: Denies easy bleeding or easy bruising Allergic/Immunologic Allergic/Immunologic ED: Denies mouth swelling, tongue swelling or urticaria EXAM Physical Exam Const Vital Signs: 09/03/22 16:57 09/03/22 17:34 09/03/22 17:34 Temperature 98.7 F Temperature Source Oral Pulse Rate 78 74 Respiratory Rate 22 H 16 18 Respiratory Effort Short of Breath Respiratory Pattern Blood Pressure 170/82 H Blood Pressure Mean 111 Pulse Ox 93 97 Oxygen Delivery Method Nasal Cannula Nasal Cannula Oxygen Flow Rate (L/min) 2 2 09/03/22 17:36 09/03/22 17:31 09/03/22 18:05 Temperature Temperature Source Pulse Rate Respiratory Rate Respiratory Effort Short of Breath Respiratory Pattern Blood Pressure Blood Pressure Mean Pulse Ox 97 92 Oxygen Delivery Method Nasal Cannula Room Air Oxygen Flow Rate (L/min) 2 09/03/22 18:05 09/03/22 18:49 09/03/22 18:50 Temperature Temperature Source Pulse Rate 80 75 82 Respiratory Rate 19 H 22 H 16 Respiratory Effort Respiratory Pattern Normal Blood Pressure 133/69 H Blood Pressure Mean 90 Pulse Ox 96 Oxygen Delivery Method Oxygen Flow Rate (L/min) Positive well nourished and well developed Constitutional Narrative: Patient appears ill. General Appearance ED: well developed and NAD; Negative for pallor HEENT Reports moist mucous membranes HEENT Narrative: Atraumatic normocephalic. Ears normal. Nares with clear drainage. Posterior pharynx out erythema or exudate. Uvula midline. There is no angioedema. Eyes PERRL and EOMs intact bilaterally General Eye ED: Negative for pale conjunctiva or scleral icterus Neck no lymphadenopathy, supple, no meningeal signs and no JVD Resp No normal respiratory effort and No clear to auscultation bilaterally Resp Narrative: There is no egophony or increased vocal fremitus. Auscultation: rales right base and wheezes expiratory wheezes and throughout (Bilaterally.) Cardio regular rate, regular rhythm, S1 normal heart sound, S2 normal heart sound and no murmurs GI non-tender, non-distended and no masses Auscultation: normoactive bowel sounds Palpation: soft Back/Spine no CVA tenderness and normal to inspection Extremity normal to inspection Extremity Narrative: Tumor millimeter depression/pitting edema right and left lower extremity. There is no asymmetry of the legs, discoloration, leg vein distention, palpable cord sounds on the distribution deep venous system. She states that the swelling is a chronic issue. General Extremety ED: Yes edema General Extremity: edema Neuro oriented x3, CN's II-XII intact bilaterally and no sensory deficits noted Joao Coma Scale: document GCS findings Spontaneous Obeys Commands Oriented 15 Sensorium / Orientation: alert Speech: speech normal Skin no wounds and skin turgor normal General Skin Exam: Negative for jaundice or pallor MDM MDM MDM Narrative Medical decision making narrative: Patient presents with respiratory symptoms. Differential is exacerbation of COPD with chronic bronchitis versus pneumonia with bronchospasm. Since patient was recently treated with prednisone, 3 weeks ago, she was treated with DuoNeb, albuterol and Solu-Medrol. Chest x-ray is obtained to evaluate for pneumonia and rule out pneumothorax. CBC to assess white count and rule out anemia as a cause of her dyspnea. BNP since she has had abnormal creatinine levels in the past. Patient was reassessed at 183. She has received 1 DuoNeb and 1 albuterol treatment. She is receiving her third albuterol treatment. Patient's breathing is not labored. She has minimal wheezing at this time. Her lung exam is improved markedly. She was informed of her laboratory results and chest Schultes. Since patient has improved markedly she will be able to be discharged with close follow-up versus admission. Initially thought was the patient will require admission to the hospital. Patient was reassessed at 2146. There is no use of accessory muscles. Her breathing has improved immensely. There is no wheezing. Plan is discharged with prescription for doxycycline and burst of prednisone. 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 She does have [place]. Her saturation was above 91% with ambulation. Lab Data Attestation: I reviewed the patient's lab results. Lab results narrative: White count is upper end of normal. Differential is unremarkable. Basic metabolic panel is unremarkable. Labs: Laboratory Results - last 24 hr 09/03/22 09/03/22 17:11 17:11 WBC 10.0 RBC 4.58 Hgb 13.1 Hct 42.6 MCV 93.0 MCH 28.6 MCHC 30.8 L RDW Std Deviation 46.2 H RDW Coeff of [place] 13.6 Plt Count 283 MPV 10.7 Immature Gran % (Auto) 0.300 Neut % (Auto) 78.9 H Lymph % (Auto) 10.8 L [place] % (Auto) 6.7 Eos % (Auto) 2.9 Baso % (Auto) 0.4 Absolute Neuts (auto) 7.9 H Absolute Lymphs (auto) 1.08 Nucleated RBC % 0 Sodium 142 Potassium 3.5 Chloride 105 Carbon Dioxide 31.0 Anion Gap 6 BUN 13 Creatinine 0.92 Estim Creat Clear Calc 36.78 Est GFR (MDRD) Af Amer 76 Est GFR (MDRD) Non-Af 63 BUN/Creatinine Ratio 14.2 Glucose 89 Calcium 9.3 Radiography Chest X-Ray - ED: 2 View and Read by ED Physician (There are chronic changes noted. Sternotomy wires noted. There is increased density left lower lobe. There is no evidence of an effusion. There appears to be a hiatal hernia.) Diagnostic Testing: Clinical Impression(s) from Imaging Studies Chest X-Ray 09/03/22 17:19 IMPRESSION: 1. Postop change of prior CABG without evidence of congestive failure. 2. Worsening area of atelectasis and infiltrate at the LEFT lung base. Small LEFT effusion is noted. 3. There is a lucency at the LEFT lung base/LEFT CP angle however no definitive pleural line is noted. 4. Minimal atelectasis at the RIGHT base. Electronically Signed: Andre Morales MD at 17:36 EST , EKG Initial EKG: Attestation: I personally reviewed and interpreted this EKG as follows: Interpretation: Sinus Rhythm (Rate is 75. EKG is normal. MT interval is 140 ms. QS duration 82 ms. QT duration 402 ms. [place] is normal) Discharge Plan Triage Chief Complaint: Shortness of Breath Other Complaint: Cough ED Provider: Ben Rock Dx/Rx/DC Orders Clinical Impression: Acute exacerbation of chronic bronchitis, Acute exacerbation of chronic obstructive pulmonary disease (COPD), Acute bronchospasm, Atelectasis, Essential hypertension, History of mechanical aortic valve replacement Instructions: ED COPD Flare Prescriptions: New prednisone 20 mg tablet 60 mg PO DAILY Qty: 15 0RF doxycycline monohydrate 100 mg capsule 100 mg PO BID Qty: 14 0RF No Action cholecalciferol (vitamin D3) 50,000 unit capsule 50,000 unit PO FR albuterol sulfate 90 mcg/actuation HFA aerosol inhaler 2 puff inhalation Q4H PRN (Reason: shortness of breath or wheezing) Qty: 8.5 6RF Rx Instructions: administer with spacer ferrous sulfate 325 mg (65 mg iron) tablet 325 mg PO BID Label Comments: TAKE 1 TABLET BY MOUTH TWICE DAILY WITH MEALS guaifenesin 1,200 mg tablet extended release 12hr 1,200 mg PO Q12H Qty: 60 6RF pantoprazole 40 MG tablet 40 mg PO BID Label Comments: stomach aspirin 81 MG tablet,chewable 162 mg PO DAILY Label Comments: blood thinner/heart lorazepam 0.5 MG tablet 0.5 mg PO BID PRN (Reason: ANXIETY) Label Comments: anxiety bupropion HCl 150 MG tablet extended release 24 hr 150 mg PO DAILY Label Comments: depression potassium chloride 20 MEQ tablet 20 meq PO DAILY montelukast 10 MG tablet 10 mg PO QHS furosemide 40 MG tablet 40 mg PO DAILY Qty: 0 0RF acetaminophen 650 MG tablet extended release 650 mg PO Q6H PRN (Reason: BACK PAIN) warfarin 2.5 mg tablet 4.5 mg PO WEFR Rx Instructions: Managed by PCP warfarin 3 mg tablet 4.5 mg PO SUMOTUTHSA Rx Instructions: Managed by PCP famotidine 20 mg tablet 20 mg PO DAILY PRN Label Comments: TAKE 1 TABLET BY MOUTH AT BEDTIME NEEDED paroxetine HCl 20 mg tablet 10 mg PO BID albuterol sulfate 2.5 MG/3 ML solution for nebulization 2.5 mg inhalation Q4H PRN Qty: 25 0RF Rx Instructions: Use q4 hours and PRN for wheezing prednisone 20 mg tablet 40 mg PO DAILY Qty: 14 0RF doxycycline monohydrate 100 mg capsule 100 mg PO BID Qty: 14 0RF triamcinolone acetonide [Nasacort] 55 mcg aerosol,spray 1 spray INTRANASAL DAILY Qty: 16.9 6RF Spiriva Respimat 2.5 mcg/actuation mist 2 puff inhalation QDAY Qty: 3 3RF Rx Instructions: administer at approximately the same time(s) each day ezetimibe 10 mg tablet 10 mg PO DAILY Qty: 90 3RF metoprolol succinate 50 mg tablet extended release 24 hr See Rx Instructions .ROUTE .COMPLEX Qty: 90 3RF Dose Instruction: TAKE 1 TABLET BY MOUTH DAILY FOR BLOOD PRESSURE Rx Instructions: TAKE 1 TABLET BY MOUTH DAILY FOR BLOOD PRESSURE fluticasone furoate-vilanterol [Breo Ellipta] 200-25 mcg/dose blister with device 1 inh inhalation DAILY Qty: 60 11RF pravastatin 80 mg tablet 80 mg PO QHS Qty: 90 3RF amiodarone 200 mg tablet 100 mg PO DAILY Qty: 45 4RF Primary Care Provider: Harley Cornejo Referrals: Harley Cornejo MD [Primary Care Provider] - 3-5 Days Disposition Disposition: Home, Self Care
[2022-09-03 17:18] LABS: Absolute Lymphocyte Count 1.08 X10^3/uL (0.83-4.51); Absolute Neutrophil Count 7.9 X10^3/uL (2.0-7.7); Basophil# 0.04 X10^3/uL; Basophil% 0.4 % (0-1); Eosinophil# 0.29 X10^3/uL; Eosinophils% 2.9 % (0-5); Hematocrit 42.6 % (37-47); Hemoglobin 13.1 g/dL (12.0-15.0); Lymphocyte # 1.08 X10^3/ul (0.83-4.51); Lymphocyte % 10.8 % (19-41); Mean Corp Hgb Conc 30.8 g/dL (32-36); Mean Corpuscular Hgb 28.6 pg (27.0-32.0); Mean Platelet Vol. 10.7 fl (6.2-12.0); Monocyte# 0.67 X10^3/uL; Monocyte% 6.7 % (0-10); NRBC Flagged by Analyzer 0 % (0-5); Neutrophil # 7.88 X10^3/uL (2.7-7.7); Neutrophil % 78.9 % (47-70); Platelet Count 283 K/mm3 (150-450); RBC Distribution Width CV 13.6 % (11.6-14.6); RBC Distribution Width SD 46.2 fl (35.1-43.9); Red Blood Count 4.58 M/mm3 (4.2-5.4)
--- NOTE | 2022-09-03 17:19 | RAD_ITS ---
INDICATION: Productive cough, dyspnea, expiratory wheezing EXAMINATION/TECHNIQUE: X-RAY - XR Chest 2 Views COMPARISON: 08/12/2022 FINDINGS: LIFE-SUPPORT AND LINES: 1. Mediastinal wires and vascular clips are present. HEART AND VESSELS: Cardiac silhouette is unchanged and partly obscured due to elevation LEFT hemidiaphragm. LUNGS AND PLEURAL SPACES: RIGHT lung is clear with exception of minimal atelectasis RIGHT lung base. Significant area of atelectasis versus infiltrate LEFT lung base with moderate worsening in the interval. There is lucency at the LEFT CP angle, however no definitive pleural line noted. MEDIASTINUM AND HILAR REGIONS: No masses adenopathy noted. No areas of calcification. Visualized upper airway is normal in position. BONY ELEMENTS: No acute bony changes noted. RAD/Chest PA and Lateral IMPRESSION: 1. Postop change of prior CABG without evidence of congestive failure. 2. Worsening area of atelectasis and infiltrate at the LEFT lung base. Small LEFT effusion is noted. 3. There is a lucency at the LEFT lung base/LEFT CP angle however no definitive pleural line is noted. 4. Minimal atelectasis at the RIGHT base. Electronically Signed: Andre Morales MD at 17:36 EST ,
[2022-09-03] MEDS: Ipratropium/Albuterol Sulfate 3 ML AMPUL.NEB INHALATION (17:24)
[2022-09-03] MEDS: MethylPREDNISolone 125 MG/2 ML Vial 60 MG IV (17:31)
[2022-09-03 17:41] LABS: Anion Gap 6 (5-15); BUN 13 mg/dL (7-18); BUN/Creat Ratio 14.2 RATIO (10-20); Calcium,Total 9.3 mg/dL (8.5-10.1); Chloride 105 mmol/L (98-107); Creatinine, Serum 0.92 mg/dL (0.55-1.02); EST Glomerular Filtration Rate 63 mL/min (>60); Est Glom Filt Rate - Afr Amer 76 mL/min (>60); Estimated Creatinine Clearance 36.78 ml/min; Glucose 89 mg/dL (74-106); Potassium 3.5 mmol/L (3.5-5.1); Sodium Level 142 mmol/L (136-145)
[2022-09-03] MEDS: Albuterol 2.5 MG/3 ML VIAL.NEB. INHALATION ×3 (18:04→18:50)
[2022-09-03] MEDS: Doxycycline 100 MG CAPSULE PO (22:14)
== END 2022-09-03 22:15 | disposition home or self-care (01) ==
PROVIDERS: Emergency Provider Emergency Medicine; PCP Family Medicine; Visit Provider Emergency Medicine
DX: J98.01 Acute bronchospasm (principal); J44.1 Chronic obstructive pulmonary disease with (acute) exacerbation; I11.0 Hypertensive heart disease with heart failure; I50.32 Chronic diastolic (congestive) heart failure; I25.10 Atherosclerotic heart disease of native coronary artery without angina pectoris; J02.9 Acute pharyngitis, unspecified; J98.11 Atelectasis; E78.5 Hyperlipidemia, unspecified; Z95.2 Presence of prosthetic heart valve
CPT/HCPCS: 71046; 80048; 85025; 93005; 94640; 99252; 99285; A4216; G0463

== ENCOUNTER 2022-10-20 13:25 | Inpatient (IN) | payer MEDICARE, OTHER, SELFPAY ==
[2022-10-20] VITALS (10 sets, daily range): BP systolic 104–160; BP diastolic 63–88; PULSE 70–87; RESP 15–24; TEMP 35.3–37.9; O2SAT 89–98; BMI 24.6; BMI 24.3
--- NOTE | 2022-10-20 15:36 | EKG12_ITS ---
Test Reason : SOB Blood Pressure : / mmHG Vent. Rate : 082 BPM Atrial Rate : 082 BPM P-R Int : 156 ms QRS Dur : 082 ms QT Int : 390 ms P-R-T Axes : 000 -03 047 degrees QTc Int : 455 ms Normal sinus rhythm Minimal voltage criteria for LVH, may be normal variant ( R in aVL ) Cannot rule out Inferior infarct , age undetermined Abnormal ECG Confirmed by TICO MAC, JARRED ([id number]), story editor BOBBY CARIAS ([id number]) on 10/23/2022 2:16:42 PM Referred By: ELENA/CURTIS Confirmed By:JARRED DOSHI MD
--- NOTE | 2022-10-20 15:50 | ED.VIS.CHEST ---
HPI History of Present Illness Chief Complaint: Shortness of Breath Narrative Narrative: 76-year-old female presenting with chest pressure and shortness of breath for about 3 weeks. She describes it as intermittent. Patient states this happens when she is exerting herself and it does not have to be very vigorous. She states she feels the pressure and very short of breath like she is going to fall. She sits down it takes about 10 minutes to recover. Sometimes she is nauseous, diaphoretic, lightheaded. Patient with history of A-fib, COPD, CAD, mechanical heart valve, thoracic aortic aneurysm on Coumadin. Denies black or bloody stools. Denies hemoptysis. She does not feel as if she is wheezing and needs a breathing treatment. 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 Nonrheumatic aortic valve regurgitation Nonspecific chest pain Obesity Palpitations Severe sepsis Syncope and collapse Home Medications pantoprazole 40 mg tablet,delayed release 40 mg PO BID ACID REFLUX 01/14/15 [History Last Taken 07/07/20] bupropion HCl 150 mg 24 hr tablet, extended release 150 mg PO DAILY DEPRESSION 11/15/15 [History Last Taken 07/07/20] montelukast 10 mg tablet 10 mg PO QHS ALLERGIES 05/03/17 [History Last Taken 07/06/20] potassium chloride 20 mEq tablet,extended release(part/cryst) 20 meq PO DAILY SUPPLEMENT 05/03/17 [History Last Taken 07/06/20] aspirin 81 mg chewable tablet 162 mg PO DAILY HEART HEALTH 09/04/17 [History Last Taken 07/07/20] lorazepam 0.5 mg tablet 0.5 mg PO BID PRN ANXIETY 09/04/17 [History Last Taken 07/07/20] furosemide 40 mg tablet 40 mg PO DAILY WATER PILL ##0 12/06/17 [Rx Last Taken 07/06/20] cholecalciferol (vitamin D3) 1,250 mcg (50,000 unit) capsule 50,000 unit PO FR SUPPLEMENT 06/16/19 [History Last Taken 06/25/20] acetaminophen 650 mg tablet,extended release 650 mg PO Q6H PRN BACK PAIN 07/07/20 [History Last Taken 07/07/20] albuterol sulfate 2.5 mg/3 mL (0.083 %) solution for nebulization 2.5 mg (3 mL) inhalation Q4H PRN #25 vials 05/21/21 [Rx Last Taken Unknown] triamcinolone acetonide 55 mcg nasal spray aerosol (Nasacort) 1 spray intranasal DAILY #16.9 mL 06/10/21 [Rx Last Taken Unknown] albuterol sulfate 90 mcg/actuation aerosol inhaler 2 puff inhalation Q4H PRN shortness of breath or wheezing #8.5 grams 10/04/21 [Rx Last Taken Unknown] famotidine 20 mg tablet 20 mg PO DAILY PRN 11/29/21 [History Last Taken Unknown] ferrous sulfate 325 mg (65 mg iron) tablet 325 mg PO BID 11/29/21 [History Last Taken Unknown] paroxetine HCl 20 mg tablet 10 mg PO BID 11/29/21 [History Last Taken Unknown] warfarin 2.5 mg tablet 4.5 mg PO WEFR blood thinner 11/29/21 [History Last Taken Unknown] warfarin 3 mg tablet 4.5 mg PO SUMOTUTHSA BLOOD THINNER 11/29/21 [History Last Taken Unknown] guaifenesin 1,200 mg tablet, extended release 12 hr 1,200 mg PO Q12H #60 tabs 04/04/22 [Rx Last Taken Unknown] metoprolol succinate 50 mg tablet,extended release 24 hr See Rx Instructions .Route .COMPLEX #90 tabs 07/03/22 [Rx Last Taken Unknown] doxycycline monohydrate 100 mg capsule 100 mg PO BID #14 CAPSULES 08/07/22 [Rx Last Taken Unknown] fluticasone furoate 200 mcg-vilanterol 25 mcg/dose inhalation powder (Breo Ellipta) 1 inh inhalation DAILY #60 ea 08/07/22 [Rx Last Taken Unknown] prednisone 20 mg tablet 40 mg PO DAILY #14 TABLETS 08/07/22 [Rx Last Taken Unknown] amiodarone 200 mg tablet 100 mg PO DAILY #45 tabs 08/28/22 [Rx Last Taken Unknown] doxycycline monohydrate 100 mg capsule 100 mg PO BID #14 CAPSULES 09/03/22 [Rx Last Taken Unknown] prednisone 20 mg tablet 60 mg PO DAILY #15 TABLETS 09/03/22 [Rx Last Taken Unknown] ezetimibe 10 mg tablet 10 mg PO DAILY #90 tabs 09/25/22 [Rx Last Taken Unknown] pravastatin 80 mg tablet 80 mg PO QHS CHOLESTEROL LOWERING #90 tabs 09/25/22 [Rx Last Taken Unknown] tiotropium bromide 2.5 mcg/actuation mist for inhalation (Spiriva Respimat) 2 puff inhalation QDAY #3 ea 10/17/22 [Rx Last Taken Unknown] Allergy/AdvReac Type Severity Reaction Status Date / Time donepezil Allergy Severe shortness Verified 10/20/22 13:26 of breath risperidone Allergy Severe Confusion Verified 10/20/22 13:26 Sulfa (Sulfonamide Allergy Swelling Verified 10/20/22 13:26 Antibiotics) celecoxib [From Celebrex] AdvReac Severe Swelling Verified 10/20/22 13:26 dextromethorphan AdvReac Severe hallucinati Verified 10/20/22 13:26 [From Delsym] on adhesive AdvReac blisters Verified 10/20/22 13:26 codeine AdvReac Itching Verified 10/20/22 13:26 levofloxacin [From Levaquin] AdvReac pain in Verified 10/20/22 13:26 legs and swelling lisinopril AdvReac cough Verified 10/20/22 13:26 oxycodone [Oxycodone] AdvReac Itching Verified 10/20/22 13:26 oxycodone HCl [From Percocet] AdvReac Itching Verified 10/20/22 13:26 Penicillins AdvReac heart Verified 10/20/22 13:26 palpitations prochlorperazine edisylate AdvReac Low blood Verified 10/20/22 13:26 [From Compazine] pressure prochlorperazine maleate AdvReac Low blood Verified 10/20/22 13:26 [From Compazine] pressure tramadol HCl [From Ultram] AdvReac Itching Verified 10/20/22 13:26 Family History Mother Arthritis CAD (coronary artery disease) Father Arthritis High cholesterol CAD (coronary artery disease) Sister Diabetes High cholesterol Hypertension Brother Diabetes High cholesterol Hypertension Surgical History H/O aortic valve replacement History of back surgery History of foot surgery History of hysterectomy History of mechanical aortic valve replacement (~10/07/13) History of sinus surgery Social History household members: spouse Smoking Status: Never smoker alcohol intake: never substance use type: does not use caffeine: Yes Type: coffee what type of physical activity do you participate in: none seatbelt use: always do you feel safe at home: Yes ROS ROS ED Constitutional Constitutional ED: Denies chills Eyes Eyes: Denies blurry vision or change in vision ENT ENT ED: Denies rhinorrhea or sore throat Cardiovascular Cardiovascular: Reports as per HPI Respiratory/Chest Respiratory/Chest: Reports cough, dyspnea and dyspnea on exertion Gastrointestinal Gastrointestinal: Denies abdominal pain or constipation Genitourinary Genitourinary ED: Denies dysuria or hematuria Musculoskeletal Musculoskeletal: Denies arthralgias Integumentary Denies abscess or Abrasions Neurologic Neurologic: Denies headache(s) or paresthesias Psychiatric Psychiatric: Denies anxiety EXAM Physical Exam Const Vital Signs: 10/20/22 13:26 10/20/22 15:54 10/20/22 15:54 Temperature 95.5 F L 100.3 F H Temperature Source Temporal Oral Pulse Rate 87 83 Respiratory Rate 22 H 18 Respiratory Effort Respiratory Depth Respiratory Pattern Blood Pressure 160/73 H 154/88 H Blood Pressure Mean 102 110 Pulse Ox 94 89 92 Oxygen Delivery Method Room Air Room Air Nasal Cannula Oxygen Flow Rate (L/min) 2 10/20/22 16:31 10/20/22 18:00 10/20/22 19:15 Temperature 98.5 F 98.7 F Temperature Source Oral Temporal Pulse Rate 70 79 Respiratory Rate 17 16 Respiratory Effort Normal Non-Labored Respiratory Depth Normal Respiratory Pattern Normal Blood Pressure 137/63 H 146/72 H Blood Pressure Mean 87 96 Pulse Ox 92 94 Oxygen Delivery Method Nasal Cannula Nasal Cannula Oxygen Flow Rate (L/min) 2 2 10/20/22 19:15 Temperature Temperature Source Pulse Rate Respiratory Rate 15 Respiratory Effort Respiratory Depth Respiratory Pattern Blood Pressure Blood Pressure Mean Pulse Ox Oxygen Delivery Method Oxygen Flow Rate (L/min) Positive well nourished General Appearance ED: Negative for pallor HEENT Reports moist mucous membranes normocephalic and atraumatic Eyes PERRL and EOMs intact bilaterally General Eye ED: Yes pale conjunctiva Chest Wall inspection of chest normal Resp normal respiratory effort Resp Narrative: Coarse breath sounds well. No wheezing. Cardio regular rate and regular rhythm GI normal to inspection, nondistended, normoactive bowel sounds Neuro oriented x3 and CN's II-XII intact bilaterally Sensorium / Orientation: awake and alert Motor Exam: strength 5/5 throughout Psych mental status grossly normal Skin no rashes or lesions noted General Skin Exam: Negative for jaundice or pallor MDM MDM MDM Narrative Medical decision making narrative: Patient presenting with chest pain and shortness of breath with exertion. Differential includes but is not limited to CHF, unstable and, aortic dissection, pneumonia, pneumothorax, muscle strain, costochondritis. PE is considered but she is on Coumadin and has been therapeutic. We will check an INR. CBC to assess white blood count, hemoglobin, platelets, differential. CMP to assess liver function, renal function, electrolytes, glucose, anion gap. High-sensitivity troponin will also be added as well as a BNP. Chest x-ray will be obtained as well as EKG. EKG on my interpretation shows a normal sinus rhythm with a ventricular rate of 82 bpm. VA interval 156 ms, QRS duration 80 ms, QT/QTc 390/455. I was called back to the room because the patient stated she was having abdominal pain she describes this as achy She is pointing to the middle of her abdomen. She states is not currently painful. She states that the pain in her abdomen typically comes with the pain in her chest. With history of aortic aneurysm I will obtain a CTA of the chest abdomen pelvis. I was then called back to the room to assess her because she developed a fever of 100.3. Rapid COVID and influenza will be added. CBC returned with a white blood cell count of 14.9 with a left shift. Hemoglobin macular stable. Platelets are normal. Patient on Coumadin and her INR is therapeutic at 2.4 so I have low suspicion for PE. Renal function and electrolytes are normal. Lipase is negative at 37. LFTs were ordered and are pending. Chest x-ray on my interpretation does not show any acute cardiopulmonary process. Hiatal hernia is noted. Radiologist services and agrees. BNP is slightly elevated without evidence of CHF. High-sensitivity troponin is 19 and repeat is 21. Patient noted to be home hypoxic. She was 87% in bed and was placed on 2 L. Subsequently we turned the oxygen off and we had her ambulated in the hallway and she dropped to 80% per nursing. Patient not wheezing on exam but with her history I gave her a breathing treatment and Solu-Medrol. CTA of the chest does not show any dissection or PE but does show patchy groundglass infiltrate in the right upper lobe and a nodular density in the lower lobe. Given patient's hypoxia and white blood cell count. I do believe she needs antibiotics. She has history of Pseudomonas and a history of MRSA so after speaking with the hospitalist we determined we would start vancomycin and Zosyn. Respiratory panel was also sent as well as a COVID PCR. Patient admitted in stable condition. Impression: 1. Hypoxia 2. Chest pain 3. pneumonia 4. leukocytosis Lab Data Attestation: I reviewed the patient's lab results. Labs: Laboratory Results - last 24 hr 10/20/22 10/20/22 10/20/22 15:55 15:55 15:55 WBC 14.9 H RBC 4.55 Hgb 12.7 Hct 41.1 MCV 90.3 MCH 27.9 MCHC 30.9 L RDW Std Deviation 45.2 H RDW Coeff of Loki 13.6 Plt Count 282 MPV 9.9 Immature Gran % (Auto) 0.500 Neut % (Auto) 89.2 H Lymph % (Auto) 4.7 L [place] % (Auto) 4.6 Eos % (Auto) 0.7 Baso % (Auto) 0.3 Absolute Neuts (auto) 13.3 H Absolute Lymphs (auto) 0.70 L Nucleated RBC % 0 PT 25.9 H INR 2.4 Sodium 138 Potassium 3.6 Chloride 101 Carbon Dioxide 31.0 Anion Gap 6 BUN 14 Creatinine 0.96 Estim Creat Clear Calc 35.25 Est GFR (MDRD) Af Amer 72 Est GFR (MDRD) Non-Af 60 BUN/Creatinine Ratio 14.6 Glucose 91 Calcium 9.6 Troponin I High Sens 19 B-Natriuretic Peptide Lipase 47 L Urine Color Urine Clarity Urine pH Ur Specific [place] Urine Protein Urine Glucose (UA) Urine Ketones Urine Occult Blood Urine Nitrite Urine Bilirubin Urine Urobilinogen Ur Leukocyte Esterase Urine RBC Urine WBC Ur Squamous Epith Cells Urine Bacteria Urine Mucus 10/20/22 10/20/22 10/20/22 15:55 17:05 18:15 WBC RBC Hgb Hct MCV MCH MCHC RDW Std Deviation RDW Coeff of [place]oki Plt Count MPV Immature Gran % (Auto) Neut % (Auto) Lymph % (Auto) [place] % (Auto) Eos % (Auto) Baso % (Auto) Absolute Neuts (auto) Absolute Lymphs (auto) Nucleated RBC % PT INR Sodium Potassium Chloride Carbon Dioxide Anion Gap BUN Creatinine Estim Creat Clear Calc Est GFR (MDRD) Af Amer Est GFR (MDRD) Non-Af BUN/Creatinine Ratio Glucose Calcium Troponin I High Sens 21 B-Natriuretic Peptide 199.4 H Lipase Urine Color Yellow Urine Clarity Clear Urine pH 7.0 Ur Specific [place] 1.010 Urine Protein 15 H Urine Glucose (UA) Normal Urine Ketones Negative Urine Occult Blood 25 H Urine Nitrite Negative Urine Bilirubin Negative Urine Urobilinogen Normal Ur Leukocyte Esterase 25 H Urine RBC 0-5 SEEN Urine WBC 0-5 SEEN Ur Squamous Epith Cells 0-5 SEEN Urine Bacteria RARE Urine Mucus 0 SEEN Radiography Diagnostic Testing: Clinical Impression(s) from Imaging Studies Chest/Abdomen/Pelvis CTA 10/20/22 16:09 IMPRESSION: 1. Atherosclerotic changes of the aorta without dissection or aneurysm. 2. No acute cardiopulmonary disease. 3. Large retrocardiac hiatal hernia. 4. Fatty infiltration of the liver. 5. Question large right renal cyst. 6. Status post hysterectomy. 7. Degenerative changes and scoliosis of the thoracolumbar spine with multiple remote appearing compression fractures. Normal contrast-enhanced CT of the chest. Normal contrast-enhanced CT of the abdomen and pelvis. Electronically Signed: Prieto Jauregui DO at 17:50 EDT Reading Location ID and State: [employer] / [employer] Tel [phone], Service support , Chest X-Ray 10/20/22 16:17 IMPRESSION: 1. Evidence of median sternotomy. 2. No acute cardiopulmonary disease or interval change. 3. Hiatal hernia. Electronically Signed: Prieto Jauregui DO at 16:36 EDT Reading Location ID and State: [employer] / [place] Tel [phone], Service support , Discharge Plan Triage Chief Complaint: Shortness of Breath Other Complaint: Cough ED Provider: Forrest Smiley Dx/Rx/DC Orders Primary Care Provider: Harley Cornejo
[2022-10-20] MEDS: Aspirin 81 MG TAB.CHEW 324 MG PO (16:05)
--- NOTE | 2022-10-20 16:09 | CT_ITS ---
INDICATION: Chest and abdomen pain. EXAMINATION: CTA CHEST, ABDOMEN AND PELVIS WITH CONTRAST - TECHNIQUE: A CTA of the chest, abdomen, and pelvis is obtained with sagittal and coronal reconstructed MIP views. Three-dimensional surface rendered sequence of the thoracic and abdominal aorta was obtained. A radiation dose optimization technique was used for this scan. 100 mL of [id number]. Oral contrast: None. COMPARISON: Chest, October 20, 2022 CT of the chest, April 05, 2021 FINDINGS: CT CHEST: THORACIC AORTA: There is atherosclerotic tortuosity of the thoracic aorta. The ascending thoracic aorta measures 4.1 x 3.8 cm. No dissection. ABDOMINAL AORTA: There is diffuse atherosclerotic changes of the abdominal aorta without stricture dissection or aneurysm. Calcifications extend into the common iliac arteries without stenosis. The intra-abdominal pelvic vasculature appears grossly normal. LUNGS: Patchy groundglass infiltrates anteriorly in the right upper lobe. There is vague nodular groundglass density in the superior segment of the right lower lobe. There are atelectatic changes in the lower lobes due to poor inspiratory effort with elevated hemidiaphragms and large retrocardiac hiatal hernia. MEDIASTINUM: The thyroid gland is normal. No mediastinal or hilar adenopathy. HEART: Heart is normal size. No pericardial effusion. Minimal coronary artery calcifications. Pulmonary arteries appear normal. There is evidence of median sternotomy. CT ABDOMEN AND PELVIS: LIVER: There is fatty infiltration of the liver without focal mass. GALLBLADDER: The CBD is normal. Normal gallbladder. SPLEEN: Normal. PANCREAS: No masses or inflammation. ADRENAL GLANDS: Right adrenal adenoma. Normal left adrenal gland. KIDNEYS AND URETERS: The kidneys both enhance appropriately. There are normal size and shape. No hydronephrosis or nephrolithiasis. No renal masses or cysts. There is a large fluid density mass along the inferior aspect of the right kidney measuring 5.3 x 6.6 x 6.5 cm. Question renal cyst. STOMACH: Large retrocardiac hiatal hernia. SMALL BOWEL: No abnormal distention of the small bowel. MESENTERY: No mesenteric inflammation. No ascites. COLON: Mild wall thickening of the descending and rectosigmoid colon with luminal narrowing lack normal posterior alignment. The right colon appears grossly normal. The colon otherwise is normal. There is a large fatty ileocecal valve. APPENDIX: The appendix is visualized and normal. IVC: Normal. RETROPERITONEUM: No retroperitoneal lymphadenopathy. PELVIC STRUCTURES: Normal bladder. Normal vaginal cuff. The patient is status post hysterectomy. No free air or free fluid is seen within the peritoneal cavity. SOFT TISSUES ABDOMEN: The anterior abdominal wall is normal. SOFT TISSUE CHEST: The extrathoracic soft tissues are normal. BONES: Marked levoscoliosis of the thoracolumbar spine. There is a remote appearing compression fractures of T7, T11 and L1. Degenerative changes of bilateral hips. CT/CTA Chst, Abd, Pel W and/or WO IMPRESSION: 1. Atherosclerotic changes of the aorta without dissection or aneurysm. 2. No acute cardiopulmonary disease. 3. Large retrocardiac hiatal hernia. 4. Fatty infiltration of the liver. 5. Question large right renal cyst. 6. Status post hysterectomy. 7. Degenerative changes and scoliosis of the thoracolumbar spine with multiple remote appearing compression fractures. Normal contrast-enhanced CT of the chest. Normal contrast-enhanced CT of the abdomen and pelvis. Electronically Signed: Prieto Jauregui DO at 17:50 EDT ,
[2022-10-20 16:12] LABS: Absolute Neutrophil Count 13.3 X10^3/uL (2.0-7.7); Basophil# 0.05 X10^3/uL; Basophil% 0.3 % (0-1); Eosinophils% 0.7 % (0-5); Hematocrit 41.1 % (37-47); Hemoglobin 12.7 g/dL (12.0-15.0); Lymphocyte % 4.7 % (19-41); Mean Corp Hgb Conc 30.9 g/dL (32-36); Mean Corpuscular Hgb 27.9 pg (27.0-32.0); Mean Corpuscular Volume 90.3 fL (81-99); Mean Platelet Vol. 9.9 fl (6.2-12.0); Monocyte# 0.69 X10^3/uL; Monocyte% 4.6 % (0-10); NRBC Flagged by Analyzer 0 % (0-5); Neutrophil # 13.31 X10^3/uL (2.7-7.7); Neutrophil % 89.2 % (47-70); Platelet Count 282 K/mm3 (150-450); RBC Distribution Width CV 13.6 % (11.6-14.6); RBC Distribution Width SD 45.2 fl (35.1-43.9); Red Blood Count 4.55 M/mm3 (4.2-5.4); White Blood Count 14.9 K/mm3 (4.4-11.0)
--- NOTE | 2022-10-20 16:17 | RAD_ITS ---
STUDY: X-RAY CHEST REASON FOR EXAM: Female, 76 years old. Chest pain. TECHNIQUE: Single AP portable view of the chest. COMPARISON: September 03, 2022. FINDINGS: Elevated right hemidiaphragm. There is no demonstrated pleural abnormality. Sternal cerclage wires are present from a prior sternotomy. The heart is normal in size. Normal mediastinum and chica. Normal visualized pulmonary arteries. There is atherosclerotic calcification of the aortic arch with tortuosity. Degenerative changes and dextroscoliosis of the thoracic spine. Normal visualized ribs, clavicles, and shoulders. Retrocardiac hiatal hernia. RAD/Chest 1 View (Portable) IMPRESSION: 1. Evidence of median sternotomy. 2. No acute cardiopulmonary disease or interval change. 3. Hiatal hernia. Electronically Signed: Pireto Jauregui DO at 16:36 EDT ,
[2022-10-20 16:20] LABS: International Normalized Ratio 2.4; Prothrombin Time (Protime)PT. 25.9 SECONDS (11.7-14.9)
[2022-10-20] MEDS: Acetaminophen 500 MG Tablet 1000 MG PO (16:32)
[2022-10-20 16:33] LABS: BNP,B-Type NATRIURETIC PEPTIDE 199.4 pg/mL (0-100)
[2022-10-20 16:38] LABS: Anion Gap 6 (5-15); BUN 14 mg/dL (7-18); BUN/Creat Ratio 14.6 RATIO (10-20); Calcium,Total 9.6 mg/dL (8.5-10.1); Chloride 101 mmol/L (98-107); Creatinine, Serum 0.96 mg/dL (0.55-1.02); EST Glomerular Filtration Rate 60 mL/min (>60); Est Glom Filt Rate - Afr Amer 72 mL/min (>60); Estimated Creatinine Clearance 35.25 ml/min; Glucose 91 mg/dL (74-106); Lipase 47 U/L (73-393); Potassium 3.6 mmol/L (3.5-5.1); Sodium Level 138 mmol/L (136-145); Troponin-I HS (w/2H Reflex) 19 pg/mL (3.0-54.0)
[2022-10-20 17:19] LABS: Mucous, Urine 0 SEEN /hpf (<or=2+)
[2022-10-20 17:39] LABS: Color, Urine Yellow (Yellow); Glucose, Dipstick Normal (Normal); Ketone-Dipstick Negative (Negative); Leukocyte Esterase-Dipstick 25 /ul (Negative); Nitrite-Dipstick Negative (Negative); Occult Blood-Urine 25 /ul (Negative); Protein-Dipstick 15 mg/dl (Negative); Urine Bilirubin Dipstick Negative (Negative); Urine Clarity Clear (Clear); Urine Urobilinogen Normal (Normal)
[2022-10-20 17:48] LABS: Bacteria RARE /hpf (None Seen); Red Blood Cells-Urine 0-5 SEEN /hpf (0-5); Squamous Epithelial Cells - UA 0-5 SEEN /hpf (5-10); White Blood Cells 0-5 SEEN /hpf (0-5)
[2022-10-20 18:05] LABS: Reflex Troponin-HS? (from REC) Y
[2022-10-20 18:40] LABS: Troponin-I HS 21 pg/mL (3.0-54.0)
[2022-10-20] MEDS: Albuterol 2.5 MG/3 ML VIAL.NEB. INHALATION (19:11)
[2022-10-20] MEDS: Ipratropium/Albuterol Sulfate 3 ML AMPUL.NEB INHALATION (19:11)
[2022-10-20] MEDS: MethylPREDNISolone 125 MG/2 ML Vial IV (19:19)
--- NOTE | 2022-10-20 19:23 | PCM.HP.STD ---
HPI - General General Date of Admission: 10/20/22 Date of Service: 10/20/22 Chief Complaint: Dyspnea, chest discomfort, LH/Dizziness, abdominal discomfort. HPI Narrative The patient is a 76 y/o F w/ PMHx: Asthma, HTN, HLD, Dementia unclear type without behavioral disturbance history, HERLINDA with q HS oxygen only not using CPAP or BIPAP, Prediabetes mellitus type II, CKD stage III unclear subtype, Anxiety and Depression, PAF, Chronic diastolic CHF, Valvular Heart Disease s/p AVR mechanical valve, Chronic sinusitis (reported MRSA, pseudomonas), GERD who presents to the [facility] ED on 10/20/22 with history of persistent chest discomfort with pressure-like sensation and dyspnea ongoing for approximately 3 weeks reportedly intermittent with onset when she is exerting herself with lightheadedness and dizziness with sensation that she is going to fall prompting approximately 10 minutes of rest for recovery with occasional associated nausea without emesis, diaphoresis with no specific recent cough, congestion or increased wheezing however given persistent symptoms prompted ED evaluation. In the ED upon evaluation patient has persistent coughing in the room and on evaluation does have wheezing. She does report some vague abdominal discomfort describing it as achy in the middle of her abdomen typically coming on as well with her chest discomfort. Patient's spouse who is present has not been ill himself. Work-up in the ED included Tmax 100.3, heart rate 87, BP initially 160/73 with most recent repeat 137/63, respiratory rate 22, initially 94% on room air however desaturated to 89% on room air-->worsening to 80% when ambulation attempted improving to 92% on 2 L nasal cannula, CBC with WC 14.9, hemoglobin 12.7, platelet 282 with left shift and lymphopenia, coags with INR 2.4, PT 25.9, BMP unremarkable, BNP 199.4, lipase 47, troponin initial 19 with repeat 21, rapid SARS COVID and influenza antigen negative, chest x-ray with evidence of prior median sternotomy with no acute cardiopulmonary disease otherwise, hiatal hernia noted, CTA chest/abdomen/pelvis with atherosclerotic changes of the order without dissection or aneurysm, large retrocardiac hiatal hernia, fatty infiltration of liver, questionable large right renal cyst, evidence status post hysterectomy, degenerative changes and scoliosis of thoracolumbar spine with multiple remote appearing compression fractures otherwise unremarkable imaging, urinalysis unremarkable, EKG with sinus rhythm with no acute evidence of ischemia. In the ED patient administered Tylenol 1000 mg p.o. x1, albuterol as well as DuoNeb therapy, aspirin 324 mg p.o. x1 and Solu-Medrol 125 mg IV x1. Vanc, zosyn administered per ED physician following discussions given review of micro history with + pseudomonas and MRSA history. 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 Nonrheumatic aortic valve regurgitation Nonspecific chest pain Obesity Palpitations Severe sepsis Syncope and collapse Home Medications pantoprazole 40 mg tablet,delayed release 40 mg PO BID ACID REFLUX 01/14/15 [History Last Taken 07/07/20] bupropion HCl 150 mg 24 hr tablet, extended release 150 mg PO DAILY DEPRESSION 11/15/15 [History Last Taken 07/07/20] montelukast 10 mg tablet 10 mg PO QHS ALLERGIES 05/03/17 [History Last Taken 07/06/20] potassium chloride 20 mEq tablet,extended release(part/cryst) 20 meq PO DAILY SUPPLEMENT 05/03/17 [History Last Taken 07/06/20] aspirin 81 mg chewable tablet 162 mg PO DAILY HEART HEALTH 09/04/17 [History Last Taken 07/07/20] lorazepam 0.5 mg tablet 0.5 mg PO BID PRN ANXIETY 09/04/17 [History Last Taken 07/07/20] furosemide 40 mg tablet 40 mg PO DAILY WATER PILL ##0 12/06/17 [Rx Last Taken 07/06/20] cholecalciferol (vitamin D3) 1,250 mcg (50,000 unit) capsule 50,000 unit PO FR SUPPLEMENT 06/16/19 [History Last Taken 06/25/20] acetaminophen 650 mg tablet,extended release 650 mg PO Q6H PRN BACK PAIN 07/07/20 [History Last Taken 07/07/20] albuterol sulfate 2.5 mg/3 mL (0.083 %) solution for nebulization 2.5 mg (3 mL) inhalation Q4H PRN #25 vials 05/21/21 [Rx Last Taken Unknown] triamcinolone acetonide 55 mcg nasal spray aerosol (Nasacort) 1 spray intranasal DAILY #16.9 mL 06/10/21 [Rx Last Taken Unknown] albuterol sulfate 90 mcg/actuation aerosol inhaler 2 puff inhalation Q4H PRN shortness of breath or wheezing #8.5 grams 10/04/21 [Rx Last Taken Unknown] famotidine 20 mg tablet 20 mg PO DAILY PRN 11/29/21 [History Last Taken Unknown] ferrous sulfate 325 mg (65 mg iron) tablet 325 mg PO BID Check with primary doctor 11/29/21 [History Last Taken Unknown] paroxetine HCl 20 mg tablet 10 mg PO BID Check with primary doctor 11/29/21 [History Last Taken Unknown] warfarin 2.5 mg tablet 4.5 mg PO WEFR blood thinner 11/29/21 [History Last Taken Unknown] warfarin 3 mg tablet 4.5 mg PO SUMOTUTHSA BLOOD THINNER 11/29/21 [History Last Taken Unknown] guaifenesin 1,200 mg tablet, extended release 12 hr 1,200 mg PO Q12H #60 tabs 04/04/22 [Rx Last Taken Unknown] doxycycline monohydrate 100 mg capsule 100 mg PO BID #14 CAPSULES 08/07/22 [Rx Last Taken Unknown] fluticasone furoate 200 mcg-vilanterol 25 mcg/dose inhalation powder (Breo Ellipta) 1 inh inhalation DAILY #60 ea 08/07/22 [Rx Last Taken Unknown] prednisone 20 mg tablet 40 mg PO DAILY #14 TABLETS 08/07/22 [Rx Last Taken Unknown] doxycycline monohydrate 100 mg capsule 100 mg PO BID #14 CAPSULES 09/03/22 [Rx Last Taken Unknown] prednisone 20 mg tablet 60 mg PO DAILY #15 TABLETS 09/03/22 [Rx Last Taken Unknown] pravastatin 80 mg tablet 80 mg PO QHS CHOLESTEROL LOWERING #90 tabs 09/25/22 [Rx Last Taken Unknown] tiotropium bromide 2.5 mcg/actuation mist for inhalation (Spiriva Respimat) 2 puff inhalation QDAY #3 ea 10/17/22 [Rx Last Taken Unknown] amiodarone 200 mg tablet 100 mg PO DAILY Check with primary doctor 10/20/22 [History Last Taken Unknown] ezetimibe 10 mg tablet (Zetia) 10 mg PO DAILY Check with primary doctor 10/20/22 [History Last Taken Unknown] metoprolol succinate 50 mg tablet,extended release 24 hr See Rx Instructions .Route .COMPLEX Check with primary doctor 10/20/22 [History Last Taken Unknown] warfarin 2.5 mg tablet 2.5 mg PO DAILY Check with primary doctor 10/20/22 [History Last Taken Unknown] Allergy/AdvReac Type Severity Reaction Status Date / Time donepezil Allergy Severe shortness Verified 10/20/22 13:26 of breath risperidone Allergy Severe Confusion Verified 10/20/22 13:26 Sulfa (Sulfonamide Allergy Swelling Verified 10/20/22 13:26 Antibiotics) celecoxib [From Celebrex] AdvReac Severe Swelling Verified 10/20/22 13:26 dextromethorphan AdvReac Severe hallucinati Verified 10/20/22 13:26 [From Delsym] on adhesive AdvReac blisters Verified 10/20/22 13:26 codeine AdvReac Itching Verified 10/20/22 13:26 levofloxacin [From Levaquin] AdvReac pain in Verified 10/20/22 13:26 legs and swelling lisinopril AdvReac cough Verified 10/20/22 13:26 oxycodone [Oxycodone] AdvReac Itching Verified 10/20/22 13:26 oxycodone HCl [From Percocet] AdvReac Itching Verified 10/20/22 13:26 Penicillins AdvReac heart Verified 10/20/22 13:26 palpitations prochlorperazine edisylate AdvReac Low blood Verified 10/20/22 13:26 [From Compazine] pressure prochlorperazine maleate AdvReac Low blood Verified 10/20/22 13:26 [From Compazine] pressure tramadol HCl [From Ultram] AdvReac Itching Verified 10/20/22 13:26 Family History Mother Arthritis CAD (coronary artery disease) Father Arthritis High cholesterol CAD (coronary artery disease) Sister Diabetes High cholesterol Hypertension Brother Diabetes High cholesterol Hypertension Surgical History H/O aortic valve replacement History of back surgery History of foot surgery History of hysterectomy History of mechanical aortic valve replacement (~10/07/13) History of sinus surgery Social History household members: spouse Smoking Status: Never smoker alcohol intake: never substance use type: does not use caffeine: Yes Type: coffee what type of physical activity do you participate in: none seatbelt use: always do you feel safe at home: Yes ROS ROS Narrative Admission Review of Systems: CONSTITUTIONAL: No weight loss, + ED noted fever without chills, weakness or fatigue. HEENT: Eyes: No visual loss, blurred vision, double vision or yellow sclerae. Ears, Nose, Throat: No hearing loss, sneezing, congestion, runny nose or sore throat. SKIN: No rash or itching, lesions, wounds. CARDIOVASCULAR: + chest pain, chest pressure or chest discomfort, occasional palpitations, LH/Dizziness. No edema, orthopnea, syncopal events. RESPIRATORY: + shortness of breath, denies but in ED ongoing coughing without marked sputum and noted wheezing, No hemoptysis. GASTROINTESTINAL: + anorexia, nausea, vague abdominal pain, No vomiting, diarrhea, melena, BRBPR. GENITOURINARY: No dysuria, frequency, urgency or retention. NEUROLOGICAL: + LH, dizziness, near syncopal type sensation occasionally. No headache, paralysis, ataxia, numbness or tingling in the extremities, focal weakness, change in bowel or bladder control, seizure. MUSCULOSKELETAL: + muscle, back pain, joint pain or stiffness. HEMATOLOGIC: + anemia, bleeding or bruising. LYMPHATICS: No enlarged nodes. No history of splenectomy. PSYCHIATRIC: + history of depression or anxiety. ENDOCRINOLOGIC: No reports of sweating, cold or heat intolerance. No polyuria or polydipsia. ALLERGIES: No history of asthma, hives, eczema or rhinitis. Vital Signs Vital Signs Vital Signs: 10/20/22 13:26 10/20/22 15:54 10/20/22 15:54 Temperature 95.5 F L 100.3 F H Temperature Source Temporal Oral Pulse Rate 87 83 Respiratory Rate 22 H 18 Respiratory Effort Respiratory Depth Respiratory Pattern Blood Pressure 160/73 H 154/88 H Blood Pressure Mean 102 110 Pulse Ox 94 89 92 Oxygen Delivery Method Room Air Room Air Nasal Cannula Oxygen Flow Rate (L/min) 2 10/20/22 16:31 10/20/22 18:00 10/20/22 19:15 Temperature 98.5 F 98.7 F Temperature Source Oral Temporal Pulse Rate 70 79 Respiratory Rate 17 16 Respiratory Effort Normal Non-Labored Respiratory Depth Normal Respiratory Pattern Normal Blood Pressure 137/63 H 146/72 H Blood Pressure Mean 87 96 Pulse Ox 92 94 Oxygen Delivery Method Nasal Cannula Nasal Cannula Oxygen Flow Rate (L/min) 2 2 10/20/22 19:15 Temperature Temperature Source Pulse Rate Respiratory Rate 15 Respiratory Effort Respiratory Depth Respiratory Pattern Blood Pressure Blood Pressure Mean Pulse Ox Oxygen Delivery Method Oxygen Flow Rate (L/min) Weight Weight: 126 lb Body Mass Index (BMI) 24.6 Physical Exam Narrative Physical Examination: General: Awake, alert, oriented x 3 and cooperative, seated upright in the ED bed, fatigued and ill-appearing, frequent coughing throughout evaluation, nonproductive. Skin: Normal color, normal turgor, no icterus, no cyanosis except occasional staged ecchymoses. HEENT: AT/NC, EOMI, PERRLA, dry MM, no carotid bruits or JVD noted. Lungs: Diminished, greater bases, right greater than left, coarse bilaterally, posterior godwin with occasional end expiratory wheeze, mildly increased respiratory rate but no distress, no rales. Heart: Currently regular rate and rhythm; no gallop, rub audible. Abdomen: Soft, thin habitus, NTTP, ND, mildly hyperactive BS, no HSM. Extremities: No cyanosis, clubbing, or edema. Neurological: Patient awake, alert, oriented as noted, cognitive function intact although does have underlying dementia history reported; pupils equally reactive to light and accommodation, cranial nerves grossly normal, moving all 4 extremities, no focal deficits, strength moderately to severely global decrease secondary to acute presentation. Psychiatric: Affect appears flat, fatigued, ill-appearing, no acute evidence of depressive or anxiety feelings but does have underlying history. Results Lab / Micro Data Result Diagrams: 10/20/22 15:55 10/20/22 15:55 Labs: Laboratory Results - last 24 hr 10/20/22 15:55: WBC 14.9 H, RBC 4.55, Hgb 12.7, Hct 41.1, MCV 90.3, MCH 27.9, MCHC 30.9 L, RDW Std Deviation 45.2 H, RDW Coeff of Loki 13.6, Plt Count 282, MPV 9.9, Immature Gran % (Auto) 0.500, Neut % (Auto) 89.2 H, Lymph % (Auto) 4.7 L, [place] % (Auto) 4.6, Eos % (Auto) 0.7, Baso % (Auto) 0.3, Absolute Neuts (auto) 13.3 H, Absolute Lymphs (auto) 0.70 L, Nucleated RBC % 0 10/20/22 15:55: PT 25.9 H, INR 2.4 10/20/22 15:55: Sodium 138, Potassium 3.6, Chloride 101, Carbon Dioxide 31.0, Anion Gap 6, BUN 14, Creatinine 0.96, Estim Creat Clear Calc 35.25, Est GFR (MDRD) Af Amer 72, Est GFR (MDRD) Non-Af 60, BUN/Creatinine Ratio 14.6, Glucose 91, Calcium 9.6, Troponin I High Sens 19, Lipase 47 L 10/20/22 15:55: B-Natriuretic Peptide 199.4 H 10/20/22 17:05: Urine Color Yellow, Urine Clarity Clear, Urine pH 7.0, Ur Specific [place] 1.010, Urine Protein 15 H, Urine Glucose (UA) Normal, Urine Ketones Negative, Urine Occult Blood 25 H, Urine Nitrite Negative, Urine Bilirubin Negative, Urine Urobilinogen Normal, Ur Leukocyte Esterase 25 H, Urine RBC 0-5 SEEN, Urine WBC 0-5 SEEN, Ur Squamous Epith Cells 0-5 SEEN, Urine Bacteria RARE, Urine Mucus 0 SEEN 10/20/22 18:15: Troponin I High Sens 21 Micro: Microbiology 10/20/22 16:15 Nasal Secretion SARS-CoV-2 & FLU Antigen (Rapid) - Final Radiology Impression Chest/Abdomen/Pelvis CTA 10/20/22 16:09 IMPRESSION: 1. Atherosclerotic changes of the aorta without dissection or aneurysm. 2. No acute cardiopulmonary disease. 3. Large retrocardiac hiatal hernia. 4. Fatty infiltration of the liver. 5. Question large right renal cyst. 6. Status post hysterectomy. 7. Degenerative changes and scoliosis of the thoracolumbar spine with multiple remote appearing compression fractures. Normal contrast-enhanced CT of the chest. Normal contrast-enhanced CT of the abdomen and pelvis. Electronically Signed: Prieto Jauregui DO at 17:50 EDT Reading Location ID and State: [address] [place] [address] Tel [phone], Service support , Chest X-Ray 10/20/22 16:17 IMPRESSION: 1. Evidence of median sternotomy. 2. No acute cardiopulmonary disease or interval change. 3. Hiatal hernia. Electronically Signed: Prieto Jauregui DO at 16:36 EDT Reading Location ID and State: [address] [place] [address] Tel [phone], Service support , Assessment & Plan Assessment/Plan (1) Pneumonia: PLAN: Plan The patient is a 76 y/o F w/ PMHx: Asthma, HTN, HLD, Dementia unclear type without behavioral disturbance history, HERLINDA with q HS oxygen only not using CPAP or BIPAP, Prediabetes mellitus type II, CKD stage III unclear subtype, Anxiety and Depression, PAF, Chronic diastolic CHF, Valvular Heart Disease s/p AVR mechanical valve, Chronic sinusitis (reported MRSA, pseudomonas), GERD who presents to the [facility] ED on 10/20/22 with history of persistent chest discomfort with pressure-like sensation and dyspnea ongoing for approximately 3 weeks reportedly intermittent with onset when she is exerting herself with lightheadedness and dizziness with sensation that she is going to fall prompting approximately 10 minutes of rest for recovery with occasional associated nausea without emesis, diaphoresis with no specific recent cough, congestion or increased wheezing however given persistent symptoms prompted ED evaluation although in the ED frequently coughing/wheezing. #1. Acute Hypoxia secondary to Suspected R multilobar Pneumonia (Possible GN/GP given Hx Pseudomonas, MRSA infections), Possibly viral etiology with concurrent Acute on Chronic Asthma Exacerbation with concurrent allergic rhinitis: CTPA C/A/P w/ Patchy ground-glass infiltrates anteriorly in the right upper lobe, vague nodular ground-glass density in the superior segment of the right lower lobe, atelectatic changes in the lower lobes due to poor inspiratory effort with elevated hemidiaphragms and large retrocardiac hiatal hernia. Will admit to PCU, maintain on oxygen with wean as tolerated to room air/home oxygen supplementation, continue ATC budesonide, PRN albuterol, maintained on IV Zosyn and Vancomycin given Pseudomonas and MRSA Hx w/ de-escalation as able, maintain on IV solumedrol, encourage HOB, IS parameters w/ pending sputum cultures, full respiratory viral panel, COVID PCR and urine antigens, continue patient home fluticasone as well as Singulair regimen. Procalcitonin requested. Bld cx x 2 obtained in the ED. #2. Chest Pain, possibly related with acute presentation #1: EKG with sinus rhythm with no acute evidence of ischemia, CTPA w/A/P w/ Patchy ground-glass infiltrates anteriorly in the right upper lobe, vague nodular ground-glass density in the superior segment of the right lower lobe, atelectatic changes in the lower lobes due to poor inspiratory effort with elevated hemidiaphragms and large retrocardiac hiatal hernia, troponin initial [address] on a monitored bed to assure no acute myocardial infarction with serial cardiac enzymes and EKGs. Mag pending. FLP pending. ASA, NG, morphine. #3. Chronic diastolic CHF: We will continue patient home aspirin, Coumadin with INR trending, statin, metoprolol, not on ARIADNA inhibitor or ARB, lasix oral regimen. Appears compensated. #4. Known Ascending Thoracic Aortic Aneurysm: Most recent imaging noting ascending thoracic aorta 4.1 x 3.8 cm, encourage continued evaluation and monitoring outpatient. #5. PAF: We will continue patient home regimen amiodarone, metoprolol as well as Coumadin with INR trending, admission INR 2.4. #6. Dementia without behavioral disturbance history: Complicates presentation, maintain on fall precautions, PT/OT/casement consultation for discharge planning. Patient of note has had prior presentations and does have hallucinations with her dementia per report. #7. Hypertension: Continue home regimen including Lasix, metoprolol with hold parameters as needed, PRN hydralazine. #8. Hyperlipidemia: Continue home statin and Zetia regimen. #9. Chronic sinusitis: Prior CT imaging with notable chronic sinus disease with history of prior MRSA and Pseudomonas of note with close continued follow-up with ENT. #10. Valvular heart disease: Patient status post AVR x2, most recently with mechanical valve, continue Coumadin with INR trending as noted, INR upon presentation 2.4. 06/07/22 ECHO w/ normal LV systolic function, EF 60%, moderately enlarged LA, mild MV stenosis, mild MVI, trivial TVI, stable appearing mechanical aortic valve apparatus, mild aortic stenosis, mild PVI transmitral diastolic flow velocities suggestive of diastolic dysfunction. #11. Chronic Kidney Disease Stage III, unclear subtype: Admission BUN/Cr 14/0.96, baseline renal function 0.9-1.3, repeat BMP in AM. #12. Chronic normocytic anemia/iron deficiency anemia: Admission hemoglobin 12.7, prior baseline noted to be 10-11, stable, continue iron supplementation and trending. #13. GERD: Will continue home PPI regimen. #14. Anxiety and depression: We will continue patient home bupropion, Ativan and paroxetine regimen. #15. DVT prophylaxis: Continue Coumadin with INR trending, admission INR 2.4. #16. CODE status: Patient AZAR is her who is present and living will is in place. Discussed CODE status at length including difference between FULL code, DNR-CCA and DNR-CC status. Following discussions about the differences in these status, requested DNR-CCA, no intubation. Advanced Care Planning Face to Face Time: 16 minutes. Admission Evaluation Time spent evaluating chart, patient history, patient evaluation, care planning and discussion with specialists: 75 minutes. Charges/Coding Visit Charges Inpatient E&M: 79202 Init Hosp L3 Procedures Hospitalists Procedures: 33017 Advncd Care Plan 30 Min
--- NOTE | 2022-10-20 20:00 | CPS ---
x1 Albuterol given to pt. in ED as well
[2022-10-20 20:16] LABS: AST(SGOT) 11 U/L (15-37); Alanine Aminotransfer ALT/SGPT 10 U/L (13-56); Albumin, Serum 2.4 g/dL (3.2-5.0); Alkaline Phosphatase 73 U/L (45-117); Bilirubin, Direct 0.15 mg/dL (0.00-0.30); Globulin 3.4 g/dL (2.2-4.2); Protein, Total 5.8 g/dL (6.4-8.2)
[2022-10-20 21:17] LABS: Magnesium 1.5 mg/dL (1.6-2.6)
[2022-10-20 21:39] LABS: Procalcitonin 0.05 ng/mL (0.00-0.09)
[2022-10-20] MEDS: 0.9% Saline Lock 10 ML Syringe IV ×2 (23:01→23:31)
[2022-10-20] MEDS: PARoxetine 10 MG Tablet PO (23:26)
[2022-10-20] MEDS: Pantoprazole Sodium 40 MG Tablet PO (23:26)
[2022-10-20] MEDS: Montelukast 10 MG Tablet PO (23:27)
[2022-10-20] MEDS: Pravastatin 80 MG Tablet PO (23:27)
[2022-10-20 23:42] LABS: Troponin-I HS 18 pg/mL (3.0-54.0)
[2022-10-21] VITALS (10 sets, daily range): BP systolic 123–148; BP diastolic 63–97; PULSE 62–90; RESP 12–20; TEMP 36.4–36.8; O2SAT 88–97
[2022-10-21] MEDS: Albuterol 2.5 MG/3 ML VIAL.NEB. INHALATION (04:26)
[2022-10-21] MEDS: Budesonide Respules 0.5 MG/2 ML AMPUL.NEB. INHALATION ×2 (04:27→19:57)
--- NOTE | 2022-10-21 05:57 | PCM.RX.CS ---
Consult Pharmacy has been consulted to manage selected antiobiotic: Vancomycin Type of Consult: New start Suspected Infection: Pneumonia Labs: Sodium 138 mmol/L (136-145) 10/20/22 15:55 Potassium 3.6 mmol/L (3.5-5.1) 10/20/22 15:55 Chloride 101 mmol/L (98-107) 10/20/22 15:55 Carbon Dioxide 31.0 mmol/L (21.0-32.0) 10/20/22 15:55 Anion Gap 6 (5-15) 10/20/22 15:55 BUN 14 mg/dL (7-18) 10/20/22 15:55 Creatinine 0.96 mg/dL (0.55-1.02) 10/20/22 15:55 Est GFR (MDRD) Af Amer 72 mL/min (>60) 10/20/22 15:55 Est GFR (MDRD) Non-Af 60 mL/min (>60) 10/20/22 15:55 BUN/Creatinine Ratio 14.6 RATIO (10-20) 10/20/22 15:55 Glucose 91 mg/dL (74-106) 10/20/22 15:55 Microbiology: Microbiology 10/20/22 17:05 Urine, Clean Catch Legionella Antigen - Final 10/20/22 17:05 Urine, Clean Catch Streptococcus pneumoniae Antigen (M - Final 10/20/22 19:37 Mucosa - Nasopharyngeal Respiratory Panel (PCR) - Final 10/20/22 16:15 Nasal Secretion SARS-CoV-2 & FLU Antigen (Rapid) - Final Goal Trough: 15-20 mcg/mL Pharmacy Plan for Drug Dosing: Pharmacy Service will continue to monitor and adjust dosing as required. Medications Vancomycin HCl 750 mg/ Sodium (Chloride) 265 mls @ 250 mls/hr IV Q24H STACEY Discontinued Medications Vancomycin HCl 750 mg/ Sodium (Chloride) 265 mls @ 250 mls/hr IV X1 ONE Stop: 10/20/22 20:28 Last Admin: 10/21/22 01:15 Dose: Infused Follow-Up Labs: Trough Vancomycin Labs to be done on [date and time ordered]: 10/22 @ 9513
[2022-10-21 06:44] LABS: Absolute Lymphocyte Count 0.27 X10^3/uL (0.83-4.51); Absolute Neutrophil Count 8.2 X10^3/uL (2.0-7.7); Basophil# 0.01 X10^3/uL; Basophil% 0.1 % (0-1); Hematocrit 40.6 % (37-47); Hemoglobin 12.8 g/dL (12.0-15.0); Lymphocyte # 0.27 X10^3/ul (0.83-4.51); Lymphocyte % 3.2 % (19-41); Mean Corp Hgb Conc 31.5 g/dL (32-36); Mean Corpuscular Hgb 28.3 pg (27.0-32.0); Mean Corpuscular Volume 89.6 fL (81-99); Mean Platelet Vol. 9.9 fl (6.2-12.0); Monocyte# 0.04 X10^3/uL; Monocyte% 0.5 % (0-10); NRBC Flagged by Analyzer 0 % (0-5); Neutrophil # 8.22 X10^3/uL (2.7-7.7); Neutrophil % 95.8 % (47-70); POSITIVE DIFFERENTIAL YES; Platelet Count 270 K/mm3 (150-450); RBC Distribution Width CV 13.7 % (11.6-14.6); RBC Distribution Width SD 45.4 fl (35.1-43.9); Red Blood Count 4.53 M/mm3 (4.2-5.4); White Blood Count 8.6 K/mm3 (4.4-11.0)
[2022-10-21 06:55] LABS: Differential Indicated SCAN CRITERIA MET
[2022-10-21 06:58] LABS: International Normalized Ratio 2.3
[2022-10-21 07:25] LABS: ALB/GLOB Ratio 0.7 RATIO (0.9-2.4); AST(SGOT) 10 U/L (15-37); Alanine Aminotransfer ALT/SGPT 11 U/L (13-56); Albumin, Serum 2.5 g/dL (3.2-5.0); Alkaline Phosphatase 81 U/L (45-117); Anion Gap 3 (5-15); BUN 12 mg/dL (7-18); BUN/Creat Ratio 13.1 RATIO (10-20); Calcium,Total 9.5 mg/dL (8.5-10.1); Chloride 105 mmol/L (98-107); Cholesterol 163 mg/dL (200); Creatinine, Serum 0.92 mg/dL (0.55-1.02); EST Glomerular Filtration Rate 63 mL/min (>60); Est Glom Filt Rate - Afr Amer 76 mL/min (>60); Estimated Creatinine Clearance 36.78 ml/min; Globulin 3.8 g/dL (2.2-4.2); Glucose 149 mg/dL (74-106); High Density Lipoprotein 53 mg/dL; Magnesium 2.5 mg/dL (1.6-2.6); Potassium 3.5 mmol/L (3.5-5.1); Protein, Total 6.3 g/dL (6.4-8.2); Sodium Level 139 mmol/L (136-145); Triglycerides 79 mg/dL; Very Low Density Lipoprotein 16 mg/dL (5-40)
[2022-10-21] MEDS: Aspirin 81 MG TAB.CHEW 162 MG PO (08:11)
[2022-10-21] MEDS: Ferrous Sulfate 325 MG Tablet PO ×2 (08:11→17:18)
[2022-10-21] MEDS: Amiodarone 200 MG Tablet 100 MG PO (08:12)
[2022-10-21] MEDS: Potassium Chloride Oral Tablet 20 MEQ PO (08:12)
[2022-10-21] MEDS: Furosemide 40 MG Tablet PO (08:12)
[2022-10-21] MEDS: PARoxetine 10 MG Tablet PO ×2 (08:13→21:09)
[2022-10-21] MEDS: Metoprolol(XL)Succ 50 MG Tablet PO (08:13)
[2022-10-21] MEDS: Pantoprazole Sodium 40 MG Tablet PO ×2 (08:13→21:10)
[2022-10-21] MEDS: Ezetimibe 10 MG Tablet PO (08:14)
[2022-10-21] MEDS: buPROPion (XL) 150 MG TABLET.XL PO (08:14)
[2022-10-21] MEDS: LORazepam 0.5 MG Tablet PO ×2 (08:24→21:13)
--- NOTE | 2022-10-21 14:15 | CASEMGMT ---
CARLOS SINGER DC Planning Assessment: Face to Face with patient for initial transition planning/care coordination assessment.?CARLOS SINGER introduced self and role at [facility], pt and pt's spouse voices understanding and are agreeable to participating in assessment.? Care providers, pharmacy,?and demographics verified. ? Admitting Dx: pneumonia PCP: Chantal Specialists: Franklyn (neurologist), Alex (timber cutter), ENT Preferred Pharmacy: [facility] Insurance: [facility] A/B, [employer] supplement Prescription Benefit:? yes Living Will/HPOA: yes, HPOA spouse Dominic LNOK: spouse Dominic Living Arrangements: Pt lives in a single story home with one step to enter. Pt states she requires minimal assistance with ADLs and does continue to cook. They have a hired accounting director and spouse is able to assist with household tasks. Transportation: Pt drives very minimally and spouse is able to transport as needed DME: cane, walker, shower chair, grab bars, nebulizer, pulse oximeter, and home O2 at 2-3l/min at hs and prn. Pt states [employer] is their home O2 supplier. They do have portable tanks if O2 is needed at DC. SNF: none HHC: did have after her cardiac surgery but they are unable to recall the name of the provider and was very long ago. ? Plan: Pt plans to return home with the support of her spouse. Pt declines needing any HHC at this time. Pt and spouse did request a list of private duty home care providers which was provided to them. Will continue to monitor and assist with any additional DC needs. Green sheet placed on chart in case of increased home O2 needs. Jeyson Arias RN CM
--- NOTE | 2022-10-21 14:18 | PCM.PROGNOTE ---
Subjective Subjective Patient seen and examined. She was admitted with a complaint of shortness of breath, chest pain, dizziness and abdominal discomfort.Imaging done showed multifocal pneumonia. She denies any fever, chills, but is coughing. She says cough is not really productive. She denies any fever, chills, palpitations, nausea, or vomiting. Objective Data Objective Data Vital Signs: Vital Signs Temp Pulse Resp BP Pulse Ox O2 Del Method O2 Flow Rate 98.2 F 86 14 148/68 H 96 Nasal Cannula 3 10/21/22 08:50 10/21/22 08:50 10/21/22 08:50 10/21/22 08:50 10/21/22 08:50 10/21/22 08:50 10/21/22 08:50 Oxygen Flow Rate (L/min) 3 Oxygen Delivery Method Nasal Cannula Weight: 124 lb 5.451 oz Body Mass Index (BMI) 24.3 Intake & Output: Intake and Output for Last 24 Hours 10/19/22 10/20/22 10/21/22 23:59 23:59 23:59 Intake Total 50 / 50 419 / 419 Balance 50 / 50 419 / 419 Lab / Micro Data Result Diagrams: 10/21/22 06:22 10/21/22 06:22 Labs: Laboratory Results - last 24 hr 10/20/22 15:55: WBC 14.9 H, RBC 4.55, Hgb 12.7, Hct 41.1, MCV 90.3, MCH 27.9, MCHC 30.9 L, RDW Std Deviation 45.2 H, RDW Coeff of Loki 13.6, Plt Count 282, MPV 9.9, Immature Gran % (Auto) 0.500, Neut % (Auto) 89.2 H, Lymph % (Auto) 4.7 L, [place] % (Auto) 4.6, Eos % (Auto) 0.7, Baso % (Auto) 0.3, Absolute Neuts (auto) 13.3 H, Absolute Lymphs (auto) 0.70 L, Nucleated RBC % 0 10/20/22 15:55: PT 25.9 H, INR 2.4 10/20/22 15:55: Sodium 138, Potassium 3.6, Chloride 101, Carbon Dioxide 31.0, Anion Gap 6, BUN 14, Creatinine 0.96, Estim Creat Clear Calc 35.25, Est GFR (MDRD) Af Amer 72, Est GFR (MDRD) Non-Af 60, BUN/Creatinine Ratio 14.6, Glucose 91, Calcium 9.6, Troponin I High Sens 19, Lipase 47 L 10/20/22 15:55: B-Natriuretic Peptide 199.4 H 10/20/22 15:55: Procalcitonin 0.05 10/20/22 17:05: Urine Color Yellow, Urine Clarity Clear, Urine pH 7.0, Ur Specific [place] 1.010, Urine Protein 15 H, Urine Glucose (UA) Normal, Urine Ketones Negative, Urine Occult Blood 25 H, Urine Nitrite Negative, Urine Bilirubin Negative, Urine Urobilinogen Normal, Ur Leukocyte Esterase 25 H, Urine RBC 0-5 SEEN, Urine WBC 0-5 SEEN, Ur Squamous Epith Cells 0-5 SEEN, Urine Bacteria RARE, Urine Mucus 0 SEEN 10/20/22 18:15: Troponin I High Sens 21 10/20/22 18:15: Total Bilirubin 0.40, Direct Bilirubin 0.15, AST 11 L, ALT 10 L, Alkaline Phosphatase 73, Total Protein 5.8 L, Albumin 2.4 L, Globulin 3.4 10/20/22 18:15: Magnesium 1.5 L 10/20/22 19:37: COVID-19 (DELFINA) Not Detected 10/20/22 23:05: Troponin I High Sens 18 10/21/22 06:22: Sodium 139, Potassium 3.5, Chloride 105, Carbon Dioxide 31.0, Anion Gap 3 L, BUN 12, Creatinine 0.92, Estim Creat Clear Calc 36.78, Est GFR (MDRD) Af Amer 76, Est GFR (MDRD) Non-Af 63, BUN/Creatinine Ratio 13.1, Glucose 149 H, Calcium 9.5, Magnesium 2.5, Total Bilirubin 0.30, AST 10 L, ALT 11 L, Alkaline Phosphatase 81, Total Protein 6.3 L, Albumin 2.5 L, Globulin 3.8, Albumin/Globulin Ratio 0.7 L, Triglycerides 79, Cholesterol 163, LDL Cholesterol 94, VLDL Cholesterol 16, HDL Cholesterol 53 10/21/22 06:22: WBC 8.6, RBC 4.53, Hgb 12.8, Hct 40.6, MCV 89.6, MCH 28.3, MCHC 31.5 L, RDW Std Deviation 45.4 H, RDW Coeff of Loki 13.7, Plt Count 270, MPV 9.9, Immature Gran % (Auto) 0.400, Neut % (Auto) 95.8 H, Lymph % (Auto) 3.2 L, [place] % (Auto) 0.5, Eos % (Auto) 0.0, Baso % (Auto) 0.1, Absolute Neuts (auto) 8.2 H, Absolute Lymphs (auto) 0.27 L, Nucleated RBC % 0, Differential Comment COMMENT 10/21/22 06:22: PT 25.0 H, INR 2.3 Micro: Microbiology 10/20/22 17:05 Urine, Clean Catch Legionella Antigen - Final 10/20/22 17:05 Urine, Clean Catch Streptococcus pneumoniae Antigen (M - Final 10/20/22 19:37 Mucosa - Nasopharyngeal Respiratory Panel (PCR) - Final 10/20/22 16:15 Nasal Secretion SARS-CoV-2 & FLU Antigen (Rapid) - Final Radiography Diagnostic Testing: Radiology Impression Chest/Abdomen/Pelvis CTA 10/20/22 16:09 IMPRESSION: 1. Atherosclerotic changes of the aorta without dissection or aneurysm. 2. No acute cardiopulmonary disease. 3. Large retrocardiac hiatal hernia. 4. Fatty infiltration of the liver. 5. Question large right renal cyst. 6. Status post hysterectomy. 7. Degenerative changes and scoliosis of the thoracolumbar spine with multiple remote appearing compression fractures. Normal contrast-enhanced CT of the chest. Normal contrast-enhanced CT of the abdomen and pelvis. Electronically Signed: Prieto Jauregui DO at 17:50 EDT Reading Location ID and State: [facility] / [place] Tel [phone], Service support , Chest X-Ray 10/20/22 16:17 IMPRESSION: 1. Evidence of median sternotomy. 2. No acute cardiopulmonary disease or interval change. 3. Hiatal hernia. Electronically Signed: Prieto Jauregui DO at 16:36 EDT Reading Location ID and State: [facility] / [place] Tel [phone], Service support , Physical Exam Const alert, oriented x3 and no apparent distress General Appearance: cooperative HEENT normocephalic, head/scalp atraumatic and moist oral mucous membranes Neck no lymphadenopathy and supple Lymph Lymphatic: no lymphadenopathy noted and no lymphedema noted Resp Resp Narrative: diminished breath sounds bibasally, few crackles. On 3L of oxygen by nasal canula Cardio regular rate, regular rhythm, S1 normal heart sound, S2 normal heart sound and no murmurs GI GI Narrative: abdomen soft, nontender, no organomegaly. Extremity normal capillary refill, no clubbing, cyanosis or edema and no calf tenderness Skin General Skin Exam: no breakdown Neuro CN's II-XII intact bilaterally, no focal motor deficits, no sensory deficits noted and deep tendon reflexes 2+ bilaterally Psych thought process normal Assessment & Plan Assessment/Plan (1) Pneumonia: PLAN: Plan #Hypoxia due to right multifocal pneumonia she was admitted with a complaint of shortness of breath and chest pain tropoonins not elevated hypoxia is improving. On 3L of oxygen by nasal canula CTA chest showed no evidence of PE, but showed patchy groundglass opacities on IV vancomycin and zosyn as she has a history of pseudomonas and MRSA infection BNP was also slightly elevated, but n evidence of CHV urine for strep and legionella negative sputum cultures pending Breathing treatments of bronchodilators. Titrate oxygen to maintain saturation above 90%. #Chest pain: Thought to be due to pneumonia. Troponins not elevated. EKG showed no acute ST changes. On aspirin and sublingual nitroglycerin #Heart failure preserved ejection fraction: Stable. BNP was mildly elevated at 199. Diurese with Lasix as well. #Ascending thoracic aortic aneurysm: This is known. Size is stable. Will monitor. #Paroxysmal A-fib: On amiodarone and metoprolol. On Coumadin. INR is therapeutic. #Hyperlipidemia: On statin #Dementia without behavioral disturbance: Stable DVT prophylaxis: On Coumadin for A-fib. INR therapeutic. Charges/Coding Visit Charges Inpatient E&M: 78127 Subs Hosp L2
[2022-10-21] MEDS: Montelukast 10 MG Tablet PO (21:10)
[2022-10-21] MEDS: Pravastatin 80 MG Tablet PO (21:10)
[2022-10-22] VITALS (8 sets, daily range): BP systolic 131–152; BP diastolic 61–83; PULSE 65–88; RESP 16–20; TEMP 36.7–37.2; O2SAT 94–97; BMI 24.4
[2022-10-22 06:36] LABS: Absolute Lymphocyte Count 0.44 X10^3/uL (0.83-4.51); Absolute Neutrophil Count 19.9 X10^3/uL (2.0-7.7); Basophil# 0.02 X10^3/uL; Basophil% 0.1 % (0-1); Hematocrit 40.1 % (37-47); Hemoglobin 12.4 g/dL (12.0-15.0); Lymphocyte # 0.44 X10^3/ul (0.83-4.51); Lymphocyte % 2.1 % (19-41); Mean Corp Hgb Conc 30.9 g/dL (32-36); Mean Corpuscular Hgb 28.4 pg (27.0-32.0); Mean Platelet Vol. 10.1 fl (6.2-12.0); Monocyte% 2.4 % (0-10); NRBC Flagged by Analyzer 0 % (0-5); Neutrophil # 19.94 X10^3/uL (2.7-7.7); Neutrophil % 94.8 % (47-70); POSITIVE DIFFERENTIAL YES; Platelet Count 307 K/mm3 (150-450); RBC Distribution Width SD 47.8 fl (35.1-43.9); Red Blood Count 4.36 M/mm3 (4.2-5.4)
[2022-10-22 06:42] LABS: Differential Indicated SCAN CRITERIA MET
[2022-10-22 07:05] LABS: Anion Gap 3 (5-15); BUN 20 mg/dL (7-18); BUN/Creat Ratio 21.8 RATIO (10-20); Calcium,Total 9.1 mg/dL (8.5-10.1); Chloride 107 mmol/L (98-107); Creatinine, Serum 0.92 mg/dL (0.55-1.02); EST Glomerular Filtration Rate 63 mL/min (>60); Est Glom Filt Rate - Afr Amer 76 mL/min (>60); Estimated Creatinine Clearance 36.78 ml/min; Glucose 125 mg/dL (74-106); Sodium Level 140 mmol/L (136-145)
[2022-10-22] MEDS: Budesonide Respules 0.5 MG/2 ML AMPUL.NEB. INHALATION ×2 (07:25→20:07)
[2022-10-22 09:50] LABS: International Normalized Ratio 2.8; Prothrombin Time (Protime)PT. 29.1 SECONDS (11.7-14.9)
[2022-10-22] MEDS: Aspirin 81 MG TAB.CHEW 162 MG PO (10:08)
[2022-10-22] MEDS: Potassium Chloride Oral Tablet 20 MEQ PO (10:08)
[2022-10-22] MEDS: Ferrous Sulfate 325 MG Tablet PO ×2 (10:09→16:39)
[2022-10-22] MEDS: Metoprolol(XL)Succ 50 MG Tablet PO (10:10)
[2022-10-22] MEDS: Amiodarone 200 MG Tablet 100 MG PO (10:10)
[2022-10-22] MEDS: Ezetimibe 10 MG Tablet PO (10:10)
[2022-10-22] MEDS: Pantoprazole Sodium 40 MG Tablet PO ×2 (10:10→21:10)
[2022-10-22] MEDS: Furosemide 40 MG Tablet PO (10:11)
[2022-10-22] MEDS: PARoxetine 10 MG Tablet PO ×2 (10:11→21:10)
[2022-10-22] MEDS: buPROPion (XL) 150 MG TABLET.XL PO (10:11)
[2022-10-22] MEDS: predniSONE 20 MG Tablet 40 MG PO (10:17)
[2022-10-22] MEDS: Acetaminophen 325 MG Tablet 650 MG PO ×2 (10:22→21:10)
--- NOTE | 2022-10-22 11:45 | PCM.PN.HOSP ---
Reason for Visit Reason for Visit: Diagnoses Pneumonia, unspecified organism (10/20/22) Subjective Subjective Still having shortness of breath but getting closer to baseline, still has cough that is productive but that is slowly improving as well. Reports that she had been having some abdominal pain but this is resolved. Objective Data Objective Data Vital Signs: Vital Signs Temp Pulse Resp BP Pulse Ox O2 Del Method O2 Flow Rate 98.6 F 82 16 152/83 H 94 Room Air 2 10/22/22 10:06 10/22/22 10:10 10/22/22 10:06 10/22/22 10:10 10/22/22 11:23 10/22/22 10:06 10/22/22 11:23 Oxygen Flow Rate (L/min) 2 Oxygen Delivery Method Room Air Weight: 56.8 kg Body Mass Index (BMI) 24.4 Intake & Output: Intake and Output for Last 24 Hours 10/20/22 10/21/22 10/22/22 23:59 23:59 23:59 Intake Total 50 / 50 709 / 709 365 / 365 Balance 50 / 50 709 / 709 365 / 365 Medical Nutrition Assessment Dietitian: Malnutrition Criteria Met Start: 10/21/22 15:38 Freq: Status: Active Protocol: Document 10/21/22 15:38 RMA (Rec: 10/21/22 15:38 RMA [id number]) Nutrition Malnutrition Evidence of Malnutrition Exists Yes Malnutrition (severe): Chronic Evidenced By Suboptimal Energy Intake ( Severe),Weight Loss (Severe) Clinical Problem Chronic Disease or Condition Related Malnutrition Etiology Severe protein-calorie malnutrition in the context of chronic disease, debility related to difficulty chewing and inadequate oral intake Signs/Symptoms as evidenced by ~17% weight loss x 6 months and PO meeting less than 50% estimated nutrition needs x 6 months Status Active Problem Recommendation Dietitian Recommendations/Changes Will liberalize diet to regular/no added salt given signs/symptoms of malnutrition ; pt to select soft foods that are easy to chew due to impaired dentition. Will d/c ensure compact w/ medpass as pt dislikes and refusing. Will add 240ml ensure clear w/ breakfast for tolerance-- likes apple. Will add fortified pudding BID w/ lunch and dinner as tolerated. Lab / Micro Data Result Diagrams: 10/22/22 06:10 10/22/22 06:10 Labs: Laboratory Results - last 24 hr 10/22/22 06:10: WBC 21.0 H, RBC 4.36, Hgb 12.4, Hct 40.1, MCV 92.0, MCH 28.4, MCHC 30.9 L, RDW Std Deviation 47.8 H, RDW Coeff of Loki 14.0, Plt Count 307, MPV 10.1, Immature Gran % (Auto) 0.600, Neut % (Auto) 94.8 H, Lymph % (Auto) 2.1 L, [place] % (Auto) 2.4, Eos % (Auto) 0.0, Baso % (Auto) 0.1, Absolute Neuts (auto) 19.9 H, Absolute Lymphs (auto) 0.44 L, Nucleated RBC % 0 10/22/22 06:10: Sodium 140, Potassium 4.0, Chloride 107, Carbon Dioxide 30.0, Anion Gap 3 L, BUN 20 H, Creatinine 0.92, Estim Creat Clear Calc 36.78, Est GFR (MDRD) Af Amer 76, Est GFR (MDRD) Non-Af 63, BUN/Creatinine Ratio 21.8 H, Glucose 125 H, Calcium 9.1 10/22/22 08:45: PT 29.1 H, INR 2.8 Micro: Microbiology 10/20/22 17:05 Urine, Clean Catch Legionella Antigen - Final 10/20/22 17:05 Urine, Clean Catch Streptococcus pneumoniae Antigen (M - Final 10/20/22 19:37 Mucosa - Nasopharyngeal Respiratory Panel (PCR) - Final 10/20/22 16:15 Nasal Secretion SARS-CoV-2 & FLU Antigen (Rapid) - Final Physical Exam Narrative General: Alert, oriented, no apparent distress HEENT: Atraumatic, normocephalic Eyes: Anicteric, normal conjunctiva, extraocular movements grossly intact Neck: Supple Respiratory: Somewhat coarse at the bases with scattered wheezes, normal respiratory effort Cardiovascular: Regular rate and rhythm GI: Soft, nontender, nondistended Extremities: No edema Musculoskeletal: Moving all extremities Neuro: No overt focal neurological deficits Skin: No rashes appreciated Psych: Cooperative Assessment & Plan Assessment/Plan (1) Pneumonia: PLAN: Plan #Hypoxia due to right multifocal pneumonia -CT on admission showed no evidence of PE but patchy groundglass opacities Has a history of Pseudomonas and MRSA and was started on IV vancomycin and Zosyn -Urine Legionella and gins negative -BNP slightly elevated on admission but no evidence of CHF exacerbation -On budesonide twice daily, will de-escalate steroids to prednisone 40 at breakfast from IV -Is improving #Stable chronic heart failure with preserved ejection fraction -Continue Lasix #Ascending thoracic aortic aneurysm -Has been noted before, size stable #Paroxysmal atrial fibrillation -amiodarone and metoprolol -On Coumadin -INR is therapeutic DVT prophylaxis: On Coumadin for A-fib.? INR therapeutic. Charges/Coding Visit Charges Inpatient E&M: 85369 Subs Hosp L2
[2022-10-22] MEDS: Pravastatin 80 MG Tablet PO (21:10)
[2022-10-22] MEDS: Montelukast 10 MG Tablet PO (21:10)
[2022-10-22] MEDS: LORazepam 0.5 MG Tablet PO (21:16)
[2022-10-23] VITALS (8 sets, daily range): BP systolic 150–160; BP diastolic 68–88; PULSE 60–68; RESP 16–18; TEMP 36.7–36.8; O2SAT 86–96; BMI 24.3
[2022-10-23 02:28] LABS: Absolute Lymphocyte Count 0.51 X10^3/uL (0.83-4.51); Absolute Neutrophil Count 16.5 X10^3/uL (2.0-7.7); Basophil# 0.02 X10^3/uL; Basophil% 0.1 % (0-1); Hematocrit 41.2 % (37-47); Hemoglobin 12.3 g/dL (12.0-15.0); Lymphocyte # 0.51 X10^3/ul (0.83-4.51); Lymphocyte % 2.8 % (19-41); Mean Corp Hgb Conc 29.9 g/dL (32-36); Mean Corpuscular Hgb 27.9 pg (27.0-32.0); Mean Corpuscular Volume 93.4 fL (81-99); Mean Platelet Vol. 10.1 fl (6.2-12.0); Monocyte# 0.91 X10^3/uL; NRBC Flagged by Analyzer 0 % (0-5); Neutrophil % 91.3 % (47-70); POSITIVE DIFFERENTIAL YES; Platelet Count 325 K/mm3 (150-450); RBC Distribution Width SD 47.7 fl (35.1-43.9); Red Blood Count 4.41 M/mm3 (4.2-5.4); White Blood Count 18.1 K/mm3 (4.4-11.0)
[2022-10-23 02:35] LABS: International Normalized Ratio 3.7; Prothrombin Time (Protime)PT. 36.1 SECONDS (11.7-14.9)
[2022-10-23 02:45] LABS: Vancomycin, Trough Level 5.6 ug/mL (5.0-15.0)
[2022-10-23 02:46] LABS: Anion Gap 4 (5-15); BUN 29 mg/dL (7-18); BUN/Creat Ratio 27.4 RATIO (10-20); Chloride 106 mmol/L (98-107); Creatinine, Serum 1.06 mg/dL (0.55-1.02); EST Glomerular Filtration Rate 53 mL/min (>60); Est Glom Filt Rate - Afr Amer 65 mL/min (>60); Estimated Creatinine Clearance 31.93 ml/min; Glucose 112 mg/dL (74-106); Potassium 3.6 mmol/L (3.5-5.1); Sodium Level 143 mmol/L (136-145)
[2022-10-23 03:18] LABS: Differential Indicated SCAN CRITERIA MET
--- NOTE | 2022-10-23 05:25 | PCM.RX.CS ---
Consult Pharmacy has been consulted to manage selected antiobiotic: Vancomycin Type of Consult: Follow-up Labs: Sodium 143 mmol/L (136-145) 10/23/22 01:45 Potassium 3.6 mmol/L (3.5-5.1) 10/23/22 01:45 Chloride 106 mmol/L (98-107) 10/23/22 01:45 Carbon Dioxide 33.0 mmol/L (21.0-32.0) H 10/23/22 01:45 Anion Gap 4 (5-15) L 10/23/22 01:45 BUN 29 mg/dL (7-18) H 10/23/22 01:45 Creatinine 1.06 mg/dL (0.55-1.02) H 10/23/22 01:45 Est GFR (MDRD) Af Amer 65 mL/min (>60) 10/23/22 01:45 Est GFR (MDRD) Non-Af 53 mL/min (>60) L 10/23/22 01:45 BUN/Creatinine Ratio 27.4 RATIO (10-20) H 10/23/22 01:45 Glucose 112 mg/dL (74-106) H 10/23/22 01:45 Vancomycin Trough 5.6 ug/mL (5.0-15.0) 10/23/22 01:45 Microbiology: Microbiology 10/20/22 17:05 Urine, Clean Catch Legionella Antigen - Final 10/20/22 17:05 Urine, Clean Catch Streptococcus pneumoniae Antigen (M - Final 10/20/22 19:37 Mucosa - Nasopharyngeal Respiratory Panel (PCR) - Final 10/20/22 16:15 Nasal Secretion SARS-CoV-2 & FLU Antigen (Rapid) - Final Goal Trough: 15-20 mcg/mL Pharmacy Plan for Drug Dosing: Pharmacy Service will continue to monitor and adjust dosing as required. TROUGH 5.6 @ 24 HRS. INCREASE TO 1GM Q24H, SCr INCREASED TO 1.06 FROM 0.92 Follow-Up Labs: Trough Vancomycin Labs to be done on [date and time ordered]: 10/26 @ 0130
[2022-10-23] MEDS: Budesonide Respules 0.5 MG/2 ML AMPUL.NEB. INHALATION (07:26)
[2022-10-23] MEDS: Aspirin 81 MG TAB.CHEW 162 MG PO (09:16)
[2022-10-23] MEDS: predniSONE 20 MG Tablet 40 MG PO (09:17)
[2022-10-23] MEDS: Ferrous Sulfate 325 MG Tablet PO ×2 (09:17→17:12)
[2022-10-23] MEDS: Potassium Chloride Oral Tablet 20 MEQ PO (09:17)
[2022-10-23] MEDS: Metoprolol(XL)Succ 50 MG Tablet PO (09:18)
[2022-10-23] MEDS: PARoxetine 10 MG Tablet PO (09:18)
[2022-10-23] MEDS: buPROPion (XL) 150 MG TABLET.XL PO (09:18)
[2022-10-23] MEDS: Pantoprazole Sodium 40 MG Tablet PO (09:18)
[2022-10-23] MEDS: Furosemide 40 MG Tablet PO (09:19)
[2022-10-23] MEDS: Ezetimibe 10 MG Tablet PO (09:19)
[2022-10-23] MEDS: Amiodarone 200 MG Tablet 100 MG PO (09:19)
[2022-10-23] MEDS: Acetaminophen 325 MG Tablet 650 MG PO (09:25)
[2022-10-23] MEDS: LORazepam 0.5 MG Tablet PO (09:39)
--- NOTE | 2022-10-23 15:23 | CON.PCM.ID_ITS ---
Assessment & Plan Assessment/Plan (1) Pneumonia: PLAN: H/o pseudomonal colonization. No prior h/o MRSA. Had MSSA in 202, 2020, 2018, 2017, etc. Will stop vanc. Given rapid improvement in symptoms, overall low suspicion for pseudomonas. Plan on home with 3 more days po doxy 100mg bid which she has taken in past for copd exacerbations. Recommend followup with her pulm, Dr. Johnson. Will follow, thank you HPI Consult Data Date of Consult: 10/23/22 HPI Narrative Reason for Consultation: pneumonia HPI Narrative: ELZA CHU, is a 76 F with chronic bronchiectasis, presented with one week of increased sputum, dyspnea, not feeling well. No fever or chills. Admitted here 10/20, started on vanc/zosyn. Feeling much better now, back to normal. Uses 2- 3L NC at home at night. Full ROS performed and neg except as noted above. 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 Nonspecific chest pain Obesity Palpitations Severe sepsis Syncope and collapse Home Medications pantoprazole 40 mg tablet,delayed release 40 mg PO BID ACID REFLUX 01/14/15 [History Last Taken 07/07/20] bupropion HCl 150 mg 24 hr tablet, extended release 150 mg PO DAILY DEPRESSION 11/15/15 [History Last Taken 07/07/20] montelukast 10 mg tablet 10 mg PO QHS ALLERGIES 05/03/17 [History Last Taken 07/06/20] potassium chloride 20 mEq tablet,extended release(part/cryst) 20 meq PO DAILY SUPPLEMENT 05/03/17 [History Last Taken 07/06/20] aspirin 81 mg chewable tablet 162 mg PO DAILY HEART HEALTH 09/04/17 [History Last Taken 07/07/20] lorazepam 0.5 mg tablet 0.5 mg PO BID PRN ANXIETY 09/04/17 [History Last Taken 07/07/20] furosemide 40 mg tablet 40 mg PO DAILY WATER PILL ##0 12/06/17 [Rx Last Taken 07/06/20] cholecalciferol (vitamin D3) 1,250 mcg (50,000 unit) capsule 50,000 unit PO FR SUPPLEMENT 06/16/19 [History Last Taken 06/25/20] acetaminophen 650 mg tablet,extended release 650 mg PO Q6H PRN BACK PAIN 07/07/20 [History Last Taken 07/07/20] albuterol sulfate 2.5 mg/3 mL (0.083 %) solution for nebulization 2.5 mg (3 mL) inhalation Q4H PRN #25 vials 05/21/21 [Rx Last Taken Unknown] triamcinolone acetonide 55 mcg nasal spray aerosol (Nasacort) 1 spray intranasal DAILY #16.9 mL 06/10/21 [Rx Last Taken Unknown] albuterol sulfate 90 mcg/actuation aerosol inhaler 2 puff inhalation Q4H PRN shortness of breath or wheezing #8.5 grams 10/04/21 [Rx Last Taken Unknown] famotidine 20 mg tablet 20 mg PO DAILY PRN 11/29/21 [History Last Taken Unknown] ferrous sulfate 325 mg (65 mg iron) tablet 325 mg PO BID Check with primary doctor 11/29/21 [History Last Taken Unknown] paroxetine HCl 20 mg tablet 10 mg PO BID Check with primary doctor 11/29/21 [History Last Taken Unknown] warfarin 2.5 mg tablet 4.5 mg PO WEFR blood thinner 11/29/21 [History Last Taken Unknown] warfarin 3 mg tablet 4.5 mg PO SUMOTUTHSA BLOOD THINNER 11/29/21 [History Last Taken Unknown] guaifenesin 1,200 mg tablet, extended release 12 hr 1,200 mg PO Q12H #60 tabs 04/04/22 [Rx Last Taken Unknown] doxycycline monohydrate 100 mg capsule 100 mg PO BID #14 CAPSULES 08/07/22 [Rx Last Taken Unknown] fluticasone furoate 200 mcg-vilanterol 25 mcg/dose inhalation powder (Breo Ellipta) 1 inh inhalation DAILY #60 ea 08/07/22 [Rx Last Taken Unknown] prednisone 20 mg tablet 40 mg PO DAILY #14 TABLETS 08/07/22 [Rx Last Taken Unknown] doxycycline monohydrate 100 mg capsule 100 mg PO BID #14 CAPSULES 09/03/22 [Rx Last Taken Unknown] prednisone 20 mg tablet 60 mg PO DAILY #15 TABLETS 09/03/22 [Rx Last Taken Unknown] pravastatin 80 mg tablet 80 mg PO QHS CHOLESTEROL LOWERING #90 tabs 09/25/22 [Rx Last Taken Unknown] tiotropium bromide 2.5 mcg/actuation mist for inhalation (Spiriva Respimat) 2 puff inhalation QDAY #3 ea 10/17/22 [Rx Last Taken Unknown] amiodarone 200 mg tablet 100 mg PO DAILY Check with primary doctor 10/20/22 [History Last Taken Unknown] ezetimibe 10 mg tablet (Zetia) 10 mg PO DAILY Check with primary doctor 10/20/22 [History Last Taken Unknown] metoprolol succinate 50 mg tablet,extended release 24 hr See Rx Instructions .Route .COMPLEX Check with primary doctor 10/20/22 [History Last Taken Unknown] warfarin 2.5 mg tablet 2.5 mg PO DAILY Check with primary doctor 10/20/22 [History Last Taken Unknown] Allergy/AdvReac Type Severity Reaction Status Date / Time donepezil Allergy Severe shortness Verified 10/20/22 13:26 of breath risperidone Allergy Severe Confusion Verified 10/20/22 13:26 Sulfa (Sulfonamide Allergy Swelling Verified 10/20/22 13:26 Antibiotics) celecoxib [From Celebrex] AdvReac Severe Swelling Verified 10/20/22 13:26 dextromethorphan AdvReac Severe hallucinati Verified 10/20/22 13:26 [From Delsym] on adhesive AdvReac blisters Verified 10/20/22 13:26 codeine AdvReac Itching Verified 10/20/22 13:26 levofloxacin [From Levaquin] AdvReac pain in Verified 10/20/22 13:26 legs and swelling lisinopril AdvReac cough Verified 10/20/22 13:26 oxycodone [Oxycodone] AdvReac Itching Verified 10/20/22 13:26 oxycodone HCl [From Percocet] AdvReac Itching Verified 10/20/22 13:26 Penicillins AdvReac heart Verified 10/20/22 13:26 palpitations prochlorperazine edisylate AdvReac Low blood Verified 10/20/22 13:26 [From Compazine] pressure prochlorperazine maleate AdvReac Low blood Verified 10/20/22 13:26 [From Compazine] pressure tramadol HCl [From Ultram] AdvReac Itching Verified 10/20/22 13:26 Family History Mother Arthritis CAD (coronary artery disease) Father Arthritis High cholesterol CAD (coronary artery disease) Sister Diabetes High cholesterol Hypertension Brother Diabetes High cholesterol Hypertension Surgical History H/O aortic valve replacement History of back surgery History of foot surgery History of hysterectomy History of mechanical aortic valve replacement (~10/07/13) History of sinus surgery Social History household members: spouse Smoking Status: Never smoker alcohol intake: never substance use type: does not use caffeine: Yes Type: coffee what type of physical activity do you participate in: none seatbelt use: always do you feel safe at home: Yes Physical Exam Const alert, oriented x3 and no apparent distress General Appearance: cooperative HEENT normocephalic and head/scalp atraumatic Eyes PERRL and EOMs intact bilaterally Neck supple and No nodes Resp Auscultation: rhonchi and wheezes Cardio regular rate and regular rhythm GI soft to palpation, non-tender and non-distended Extremity General Extremity: Negative for edema Skin no rashes or lesions noted Neuro CN's II-XII intact bilaterally Medical Records Data Medical Nutrition Assessment Dietitian: Malnutrition Criteria Met Start: 10/21/22 15:38 Freq: Status: Active Protocol: Document 10/21/22 15:38 RMA (Rec: 10/21/22 15:38 RMA [id number]) Nutrition Malnutrition Evidence of Malnutrition Exists Yes Malnutrition (severe): Chronic Evidenced By Suboptimal Energy Intake ( Severe),Weight Loss (Severe) Clinical Problem Chronic Disease or Condition Related Malnutrition Etiology Severe protein-calorie malnutrition in the context of chronic disease, debility related to difficulty chewing and inadequate oral intake Signs/Symptoms as evidenced by ~17% weight loss x 6 months and PO meeting less than 50% estimated nutrition needs x 6 months Status Active Problem Recommendation Dietitian Recommendations/Changes Will liberalize diet to regular/no added salt given signs/symptoms of malnutrition ; pt to select soft foods that are easy to chew due to impaired dentition. Will d/c ensure compact w/ medpass as pt dislikes and refusing. Will add 240ml ensure clear w/ breakfast for tolerance-- likes apple. Will add fortified pudding BID w/ lunch and dinner as tolerated. Lab / Micro Data Attestation: I reviewed the patient's lab results. Result Diagrams: 10/23/22 01:45 10/23/22 01:45 Labs: Laboratory Results - last 24 hr 10/23/22 01:45: Vancomycin Trough 5.6 10/23/22 01:45: WBC 18.1 H, RBC 4.41, Hgb 12.3, Hct 41.2, MCV 93.4, MCH 27.9, MCHC 29.9 L, RDW Std Deviation 47.7 H, RDW Coeff of Loki 14.0, Plt Count 325, MPV 10.1, Immature Gran % (Auto) 0.800, Neut % (Auto) 91.3 H, Lymph % (Auto) 2.8 L, [place] % (Auto) 5.0, Eos % (Auto) 0.0, Baso % (Auto) 0.1, Absolute Neuts (auto) 16 .5 H, Absolute Lymphs (auto) 0.51 L, Nucleated RBC % 0, Differential Comment COMMENT 10/23/22 01:45: PT 36.1 H, INR 3.7 10/23/22 01:45: Sodium 143, Potassium 3.6, Chloride 106, Carbon Dioxide 33.0 H, Anion Gap 4 L, BUN 29 H, Creatinine 1.06 H, Estim Creat Clear Calc 31.93, Est GFR (MDRD) Af Amer 65, Est GFR (MDRD) Non-Af 53 L, BUN/Creatinine Ratio 27.4 H, Glucose 112 H, Calcium 9.0
--- NOTE | 2022-10-23 16:11 | PCM.DC ---
Discharge Instructions Diet Discharge Diet: - (Resume previous diet) Activity Discharge Activity: Return to Normal Activity Follow Up Care Test Results: Test results from this visit will be discussed in further detail at your follow-up appointment, if applicable. Discharge Plan Admission Admit Date/Time: 10/20/22 19:26 Primary Reason for Your Visit: Shortness of breath Attending Provider: Katherine Villarreal Primary Care Provider: Harley Cornejo Consulting Providers: Faviola Perry ; Anju Sanz ; Dominic Vizcaino Instructions Patient Instructions: ED Fall Prevention Additional Instructions / Restrictions: DISCHARGE INSTRUCTIONS PLEASE READ *Please take this with you to your next doctors appointment* -Please follow-up with your lung doctor on discharge -You were admitted due to pneumonia and you will be discharged on antibiotics. You will take 1 dose of doxycycline tonight followed by 3 days of doxycycline twice daily -You also take 3 more days of prednisone 40 mg starting 10/24/2022. These have been sent to your preferred pharmacy on file, [facility] in [place] -Your INR on day of discharge was 3.8, and you are getting 2.5 mg of Coumadin daily. Please hold your dose of Coumadin 10/23/2022 and continue 2.5 mg. Please call the physician managing your INR and Coumadin (warfarin) upon discharge for further adjustment and monitoring as this will likely need adjusted further and further INR is trended. -Additionally would recommend taking half a dose of Lasix for 3 days followed by resumption of your normal routine. - Would recommend lab work ( BMP ) to check your kidneys in 3 to 5 days through your primary care physician's office. Please call their office upon discharge to obtain order for lab work. -Please continue other home medications -Please call your primary care provider's office upon discharge to schedule a hospital follow up within 1 week. -For any concerning signs or symptoms please call 911 or proceed to the nearest emergency department Discharge Orders/Prescriptions Prescriptions: Continued cholecalciferol (vitamin D3) 50,000 unit capsule 50,000 unit PO FR albuterol sulfate 90 mcg/actuation HFA aerosol inhaler 2 puff inhalation Q4H PRN (Reason: shortness of breath or wheezing) Qty: 8.5 6RF Rx Instructions: administer with spacer ferrous sulfate 325 mg (65 mg iron) tablet 325 mg PO BID Label Comments: TAKE 1 TABLET BY MOUTH TWICE DAILY WITH MEALS guaifenesin 1,200 mg tablet extended release 12hr 1,200 mg PO Q12H Qty: 60 6RF pantoprazole 40 MG tablet 40 mg PO BID Label Comments: stomach aspirin 81 MG tablet,chewable 162 mg PO DAILY Label Comments: blood thinner/heart lorazepam 0.5 MG tablet 0.5 mg PO BID PRN (Reason: ANXIETY) Label Comments: anxiety bupropion HCl 150 MG tablet extended release 24 hr 150 mg PO DAILY Label Comments: depression potassium chloride 20 MEQ tablet 20 meq PO DAILY montelukast 10 MG tablet 10 mg PO QHS acetaminophen 650 MG tablet extended release 650 mg PO Q6H PRN (Reason: BACK PAIN) famotidine 20 mg tablet 20 mg PO DAILY PRN Label Comments: TAKE 1 TABLET BY MOUTH AT BEDTIME NEEDED paroxetine HCl 20 mg tablet 10 mg PO BID albuterol sulfate 2.5 MG/3 ML solution for nebulization 2.5 mg inhalation Q4H PRN Qty: 25 0RF Rx Instructions: Use q4 hours and PRN for wheezing amiodarone 200 mg tablet 100 mg PO DAILY metoprolol succinate 50 mg tablet extended release 24 hr See Rx Instructions .ROUTE .COMPLEX Rx Instructions: TAKE 1 TABLET BY MOUTH DAILY FOR BLOOD PRESSURE ezetimibe [Zetia] 10 mg tablet 10 mg PO DAILY warfarin 2.5 mg Tablet 2.5 mg PO DAILY prednisone 20 mg tablet 40 mg PO DAILY 3 Days Qty: 6 0RF doxycycline monohydrate 100 mg capsule 100 mg PO BID 3 Days Qty: 7 0RF triamcinolone acetonide [Nasacort] 55 mcg aerosol,spray 1 spray INTRANASAL DAILY Qty: 16.9 6RF fluticasone furoate-vilanterol [Breo Ellipta] 200-25 mcg/dose blister with device 1 inh inhalation DAILY Qty: 60 11RF pravastatin 80 mg tablet 80 mg PO QHS Qty: 90 3RF Spiriva Respimat 2.5 mcg/actuation mist 2 puff inhalation QDAY Qty: 3 3RF Rx Instructions: administer at approximately the same time(s) each day Held furosemide 40 MG tablet 40 mg PO DAILY Qty: 0 0RF Hold Instructions: Resume on 10/25/22. Discontinued warfarin 2.5 mg tablet 4.5 mg PO WEFR Rx Instructions: Managed by PCP warfarin 3 mg tablet 4.5 mg PO SUMOTUTHSA Rx Instructions: Managed by PCP prednisone 20 mg tablet 60 mg PO DAILY Qty: 15 0RF doxycycline monohydrate 100 mg capsule 100 mg PO BID Qty: 14 0RF Referrals / Follow Up: Jeremy Johnson DO [Med Staff - Active Staff] - See Referral Note (Please follow-up with your lung doctor upon discharge) Harley Cornejo MD [Primary Care Provider] - Within 1 Week Disposition Disposition (needs filled in before D/C Order can be placed): Home, Self Care
--- NOTE | 2022-10-23 16:13 | CHAPLAIN ---
Type of Pastoral Visit _x__ Initial Visit ___ Follow-up Visit ___ On-call Visit ___ General Patient Visit ___ Spiritual Assessment ___ Family Conference ___ Bereavement ___ Rapid Response ___ Code Blue ___ Other (describe below) Pastoral Care Referral From _x__ Patient ___ Family ___ Nurse ___ Physician ___ Engineer Technician ___ Antenna Machine Operator ___ Other (describe below) Sacrament/Intervention _x__ Active listening ___ Anointing ___ Congregational ___ Bereavement ___ Communion _x__ Bhavya exploration ___ ___ Life review _x__ Prayer ___ Reconciliation ___ Sacrament of Sick _x__ Supportive presence ___ Wedding ___ Other (describe below) Pastoral Comments patient states that she is feeling some improvements and hopes to go home; spouse is with her and agrees; spouse says that the dog is missing her terribly and he hopes to have her back in the home soon; pt has a bahai connection but has not been active recently; pt welcomes prayer and presence for support
--- NOTE | 2022-10-23 16:14 | DS.PCM_ITS ---
Providers Date of Admission: 10/20/22 Date of Discharge: 10/23/22 Primary Care Physician: Dr. 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 EMERGENT Consult: No MD Notified: Yes Date Notified: 10/23/22 Time Notified: 12:54 Method of Notification: Answering Service Comments:: PNA, on vanc+zosyn d/t hx, improved, ?abx for dc Reason For Visit: HYPOXIA, SUSPECTED PNA, POSS VIRAL Diagnosis Discharge Diagnosis (1) Pneumonia: Status: Acute Code(s): J18.9 - Pneumonia, unspecified organism Plan #Hypoxia due to right multifocal pneumonia #Stable chronic heart failure with preserved ejection fraction #Ascending thoracic aortic aneurysm #Paroxysmal atrial fibrillation Medications at Discharge Home Medications pantoprazole 40 mg tablet,delayed release 40 mg PO BID ACID REFLUX 01/14/15 bupropion HCl 150 mg 24 hr tablet, extended release 150 mg PO DAILY DEPRESSION 11/15/15 montelukast 10 mg tablet 10 mg PO QHS ALLERGIES 05/03/17 potassium chloride 20 mEq tablet,extended release(part/cryst) 20 meq PO DAILY SUPPLEMENT 05/03/17 aspirin 81 mg chewable tablet 162 mg PO DAILY HEART HEALTH 09/04/17 lorazepam 0.5 mg tablet 0.5 mg PO BID PRN ANXIETY 09/04/17 furosemide 40 mg tablet 40 mg PO DAILY WATER PILL ##0 12/06/17 cholecalciferol (vitamin D3) 1,250 mcg (50,000 unit) capsule 50,000 unit PO FR SUPPLEMENT 06/16/19 acetaminophen 650 mg tablet,extended release 650 mg PO Q6H PRN BACK PAIN 07/07/20 albuterol sulfate 2.5 mg/3 mL (0.083 %) solution for nebulization 2.5 mg (3 mL) inhalation Q4H PRN #25 vials 05/21/21 triamcinolone acetonide 55 mcg nasal spray aerosol (Nasacort) 1 spray intranasal DAILY #16.9 mL 06/10/21 albuterol sulfate 90 mcg/actuation aerosol inhaler 2 puff inhalation Q4H PRN shortness of breath or wheezing #8.5 grams 10/04/21 famotidine 20 mg tablet 20 mg PO DAILY PRN 11/29/21 ferrous sulfate 325 mg (65 mg iron) tablet 325 mg PO BID Check with primary doctor 11/29/21 paroxetine HCl 20 mg tablet 10 mg PO BID Check with primary doctor 11/29/21 guaifenesin 1,200 mg tablet, extended release 12 hr 1,200 mg PO Q12H #60 tabs 04/04/22 fluticasone furoate 200 mcg-vilanterol 25 mcg/dose inhalation powder (Breo Ellipta) 1 inh inhalation DAILY #60 ea 08/07/22 pravastatin 80 mg tablet 80 mg PO QHS CHOLESTEROL LOWERING #90 tabs 09/25/22 tiotropium bromide 2.5 mcg/actuation mist for inhalation (Spiriva Respimat) 2 puff inhalation QDAY #3 ea 10/17/22 amiodarone 200 mg tablet 100 mg PO DAILY Check with primary doctor 10/20/22 ezetimibe 10 mg tablet (Zetia) 10 mg PO DAILY Check with primary doctor 10/20/22 metoprolol succinate 50 mg tablet,extended release 24 hr See Rx Instructions .Route .COMPLEX Check with primary doctor 10/20/22 warfarin 2.5 mg tablet 2.5 mg PO DAILY Check with primary doctor 10/20/22 doxycycline monohydrate 100 mg capsule 100 mg PO BID 3 days #7 CAPSULES 10/23/22 prednisone 20 mg tablet 40 mg PO DAILY 3 days #6 TABLETS 10/23/22 Hospital Course Procedures - (CTA) Summary of Care Provided Minutes Spent on Discharge: 36 Hospital Course: The patient is a 76 y/o F w/ PMHx: Asthma, HTN, HLD, Dementia unclear type w ithout behavioral disturbance history, HERLINDA with q HS oxygen only not using CPAP or BIPAP, Prediabetes mellitus type II, CKD stage III unclear subtype, Anxiety and Depression, PAF, Chronic diastolic CHF, Valvular Heart Disease s/p AVR mechanical valve, Chronic sinusitis (reported MRSA, pseudomonas), GERD who presents to the [facility] ED on 10/20/22 with history of persistent chest discomfort with pressure-like sensation and dyspnea ongoing for approximately 3 weeks. In ED Tmax 100.37 respiratory rate 22, 94% on room air but desaturated to 89% on room air and down to 80% when ambulating. White blood cells 14.9 BNP 199. Chest x-ray with no acute disease and CTA was obtained and there was concern for multifocal pneumonia. She was given DuoNeb, Solu-Medrol, Vanco and Zosyn and hospitalist consulted for admission. Had a history of Pseudomonas so was kept on broad-spectrum antibiotics as well as nebulizers and steroids. She improved significantly with those measures. Had not been able to obtain a sputum culture so no culture results to direct antibiotic therapy. Looked back and she has a h istory of Pseudomonas in her sputum with various resistance patterns. Consulted ID for concern that she may need IV antibiotics if high concern for Pseudomonas as she is allergic to Levaquin. Infectious disease evaluated and did not feel she required pseudomonal coverage and recommended doxycycline for another 3 days. On day of discharge patient feeling much better. She was ambulated and did not require increased O2 from baseline. Discharge instructions as followed and were discussed with Ms. Griffin: DISCHARGE INSTRUCTIONS PLEASE READ *Please take this with you to your next doctors appointment* -Please follow-up with your lung doctor on discharge -You were admitted due to pneumonia and you will be discharged on antibiotics.? You will take 1 dose of doxycycline tonight followed by 3 days of doxycycline twice daily -You also take 3 more days of prednisone 40 mg starting 10/24/2022.? These have been sent to your preferred pharmacy on file, [facility] in [place] -Your INR on day of discharge was 3.8, and you are getting 2.5 mg of Coumadin daily.? Please hold your dose of Coumadin 10/23/2022 and continue 2.5 mg.? Please call the physician managing your INR and Coumadin (warfarin) upon discharge for further adjustment and monitoring as this will likely need adjusted further and further INR is trended. -Additionally would recommend taking half a dose of Lasix for 3 days followed by resumption of your normal routine. - Would recommend lab work ( BMP ) to check your kidneys in 3 to 5 days through your primary care physician's office.? Please call their office upon discharge to obtain order for lab work. -Please continue other home medications -Please call your primary care provider's office upon discharge to schedule a hospital follow up within 1 week. -For any concerning signs or symptoms please call 911 or proceed to the nearest emergency department Physical Exam Narrative General: Alert, oriented, no apparent distress HEENT: Atraumatic, normocephalic Eyes: Anicteric, normal conjunctiva, extraocular movements grossly intact Neck: Supple Respiratory: No significant crackles or wheezes, normal respiratory effort Cardiovascular: Regular rate GI: Soft, nontender, nondistended Extremities: No edema Musculoskeletal: Moving all extremities Neuro: No overt focal neurological deficits Skin: No rashes appreciated Psych: Cooperative Medical Records Data Medical Nutrition Assessment Dietitian: Malnutrition Criteria Met Start: 10/21/22 15:38 Freq: Status: Active Protocol: Document 10/21/22 15:38 RMA (Rec: 10/21/22 15:38 RMA [id number]) Nutrition Malnutrition Evidence of Malnutrition Exists Yes Malnutrition (severe): Chronic Evidenced By Suboptimal Energy Intake ( Severe),Weight Loss (Severe) Clinical Problem Chronic Disease or Condition Related Malnutrition Etiology Severe protein-calorie malnutrition in the context of chronic disease, debility related to difficulty chewing and inadequate oral intake Signs/Symptoms as evidenced by ~17% weight loss x 6 months and PO meeting less than 50% estimated nutrition needs x 6 months Status Active Problem Recommendation Dietitian Recommendations/Changes Will liberalize diet to regular/no added salt given signs/symptoms of malnutrition ; pt to select soft foods that are easy to chew due to impaired dentition. Will d/c ensure compact w/ medpass as pt dislikes and refusing. Will add 240ml ensure clear w/ breakfast for tolerance-- likes apple. Will add fortified pudding BID w/ lunch and dinner as tolerated. Weight / BMI Weight Weight: 56.5 kg Body Mass Index (BMI) 24.3 ABG / Lab / Microbiology Data Result Diagrams: 10/23/22 01:45 10/23/22 01:45 Laboratory: Laboratory Results - last 24 hr 10/23/22 01:45: Vancomycin Trough 5.6 10/23/22 01:45: WBC 18.1 H, RBC 4.41, Hgb 12.3, Hct 41.2, MCV 93.4, MCH 27.9, MCHC 29.9 L, RDW Std Deviation 47.7 H, RDW Coeff of Loki 14.0, Plt Count 325, MPV 10.1, Immature Gran % (Auto) 0.800, Neut % (Auto) 91.3 H, Lymph % (Auto) 2.8 L, Becker % (Auto) 5.0, Eos % (Auto) 0.0, Baso % (Auto) 0.1, Absolute Neuts (auto) 16.5 H, Absolute Lymphs (auto) 0.51 L, Nucleated RBC % 0, Differential Comment COMMENT 10/23/22 01:45: PT 36.1 H, INR 3.7 10/23/22 01:45: Sodium 143, Potassium 3.6, Chloride 106, Carbon Dioxide 33.0 H, Anion Gap 4 L, BUN 29 H, Creatinine 1.06 H, Estim Creat Clear Calc 31.93, Est GFR (MDRD) Af Amer 65, Est GFR (MDRD) Non-Af 53 L, BUN/Creatinine Ratio 27.4 H, Glucose 112 H, Calcium 9.0 Microbiology: Microbiology 10/20/22 17:05 Urine, Clean Catch Legionella Antigen - Final 10/20/22 17:05 Urine, Clean Catch Streptococcus pneumoniae Antigen (M - Final 10/20/22 19:37 Mucosa - Nasopharyngeal Respiratory Panel (PCR) - Final 10/20/22 16:15 Nasal Secretion SARS-CoV-2 & FLU Antigen (Rapid) - Final D/C Instructions Discharge Diet: - (Resume previous diet) Meaningful Use Info Meaningful Use Diagnoses (Choose all that apply): None applicable Discharge Plan Admission Admit Date/Time: 10/20/22 19:26 Primary Reason for Your Visit: Shortness of breath Attending Provider: Katherine Villarreal Primary Care Provider: Harley Cornejo Consulting Providers: Faviola Perry ; Anju Sanz ; Dominic Vizcaino Instructions Patient Instructions: ED Fall Prevention Additional Instructions / Restrictions: DISCHARGE INSTRUCTIONS PLEASE READ *Please take this with you to your next doctors appointment* -Please follow-up with your lung doctor on discharge -You were admitted due to pneumonia and you will be discharged on antibiotics. You will take 1 dose of doxycycline tonight followed by 3 days of doxycycline twice daily -You also take 3 more days of prednisone 40 mg starting 10/24/2022. These have been sent to your preferred pharmacy on file, [facility] [place] -Your INR on day of discharge was 3.8, and you are getting 2.5 mg of Coumadin daily. Please hold your dose of Coumadin 10/23/2022 and continue 2.5 mg. Please call the physician managing your INR and Coumadin (warfarin) upon discharge for further adjustment and monitoring as this will likely need adjusted further and further INR is trended. -Additionally would recommend taking half a dose of Lasix for 3 days followed by resumption of your normal routine. - Would recommend lab work ( BMP ) to check your kidneys in 3 to 5 days through your primary care physician's office. Please call their office upon discharge to obtain order for lab work. -Please continue other home medications -Please call your primary care provider's office upon discharge to schedule a hospital follow up within 1 week. -For any concerning signs or symptoms please call 911 or proceed to the nearest emergency department Discharge Orders/Prescriptions Prescriptions: Continued cholecalciferol (vitamin D3) 50,000 unit capsule 50,000 unit PO FR albuterol sulfate 90 mcg/actuation HFA aerosol inhaler 2 puff inhalation Q4H PRN (Reason: shortness of breath or wheezing) Qty: 8.5 6RF Rx Instructions: administer with spacer ferrous sulfate 325 mg (65 mg iron) tablet 325 mg PO BID Label Comments: TAKE 1 TABLET BY MOUTH TWICE DAILY WITH MEALS guaifenesin 1,200 mg tablet extended release 12hr 1,200 mg PO Q12H Qty: 60 6RF pantoprazole 40 MG tablet 40 mg PO BID Label Comments: stomach aspirin 81 MG tablet,chewable 162 mg PO DAILY Label Comments: blood thinner/heart lorazepam 0.5 MG tablet 0.5 mg PO BID PRN (Reason: ANXIETY) Label Comments: anxiety bupropion HCl 150 MG tablet extended release 24 hr 150 mg PO DAILY Label Comments: depression potassium chloride 20 MEQ tablet 20 meq PO DAILY montelukast 10 MG tablet 10 mg PO QHS acetaminophen 650 MG tablet extended release 650 mg PO Q6H PRN (Reason: BACK PAIN) famotidine 20 mg tablet 20 mg PO DAILY PRN Label Comments: TAKE 1 TABLET BY MOUTH AT BEDTIME NEEDED paroxetine HCl 20 mg tablet 10 mg PO BID albuterol sulfate 2.5 MG/3 ML solution for nebulization 2.5 mg inhalation Q4H PRN Qty: 25 0RF Rx Instructions: Use q4 hours and PRN for wheezing amiodarone 200 mg tablet 100 mg PO DAILY metoprolol succinate 50 mg tablet extended release 24 hr See Rx Instructions .ROUTE .COMPLEX Rx Instructions: TAKE 1 TABLET BY MOUTH DAILY FOR BLOOD PRESSURE ezetimibe [Zetia] 10 mg tablet 10 mg PO DAILY warfarin 2.5 mg Tablet 2.5 mg PO DAILY prednisone 20 mg tablet 40 mg PO DAILY 3 Days Qty: 6 0RF doxycycline monohydrate 100 mg capsule 100 mg PO BID 3 Days Qty: 7 0RF triamcinolone acetonide [Nasacort] 55 mcg aerosol,spray 1 spray INTRANASAL DAILY Qty: 16.9 6RF fluticasone furoate-vilanterol [Breo Ellipta] 200-25 mcg/dose blister with device 1 inh inhalation DAILY Qty: 60 11RF pravastatin 80 mg tablet 80 mg PO QHS Qty: 90 3RF Spiriva Respimat 2.5 mcg/actuation mist 2 puff inhalation QDAY Qty: 3 3RF Rx Instructions: administer at approximately the same time(s) each day Held furosemide 40 MG tablet 40 mg PO DAILY Qty: 0 0RF Hold Instructions: Resume on 10/25/22. Discontinued warfarin 2.5 mg tablet 4.5 mg PO WEFR Rx Instructions: Managed by PCP warfarin 3 mg tablet 4.5 mg PO SUMOTUTHSA Rx Instructions: Managed by PCP prednisone 20 mg tablet 60 mg PO DAILY Qty: 15 0RF doxycycline monohydrate 100 mg capsule 100 mg PO BID Qty: 14 0RF Referrals / Follow Up: Harley Cornejo MD [Primary Care Provider] - 10/26/22 2:00 pm Joy Adame NP, N[employer]ION RECRUITER-C [Med Staff - [facility]] - 11/07/22 7:45 am Disposition Disposition (needs filled in before D/C Order can be placed): Home, Self Care Charges/Coding Visit Charges Inpatient E&M: 65396 Disch Hosp >30min
[2022-10-23] MEDS: 0.9% Saline Lock 10 ML Syringe IV (17:12)
== END 2022-10-23 17:47 | disposition home or self-care (01) | DRG 177 ==
LOC: ED 15:35 → PCU 19:34
PROVIDERS: Student in an Organized Health Care Education/Training Program; Admitting Provider Family Medicine; Emergency Provider Student in an Organized Health Care Education/Training Program; PCP Family Medicine; Visit Provider Internal Medicine
DX: J15.212 Pneumonia due to Methicillin resistant Staphylococcus aureus (principal); E43 Unspecified severe protein-calorie malnutrition; J47.0 Bronchiectasis with acute lower respiratory infection; I13.0 Hypertensive heart and chronic kidney disease with heart failure and stage 1 through stage 4 chronic kidney disease, or unspecified chronic kidney disease; J45.901 Unspecified asthma with (acute) exacerbation; I50.32 Chronic diastolic (congestive) heart failure; F03.90 Unspecified dementia, unspecified severity, without behavioral disturbance, psychotic disturbance, mood disturbance, and anxiety; I48.0 Paroxysmal atrial fibrillation; N18.30 Chronic kidney disease, stage 3 unspecified; I71.21 Aneurysm of the ascending aorta, without rupture; K21.9 Gastro-esophageal reflux disease without esophagitis; E78.5 Hyperlipidemia, unspecified; I25.10 Atherosclerotic heart disease of native coronary artery without angina pectoris; J32.9 Chronic sinusitis, unspecified; D50.9 Iron deficiency anemia, unspecified; I08.0 Rheumatic disorders of both mitral and aortic valves; K44.9 Diaphragmatic hernia without obstruction or gangrene; F41.9 Anxiety disorder, unspecified; F32.A Depression, unspecified; Z79.891 Long term (current) use of opiate analgesic; Z79.01 Long term (current) use of anticoagulants; B95.62 Methicillin resistant Staphylococcus aureus infection as the cause of diseases classified elsewhere; Z79.82 Long term (current) use of aspirin; Z95.2 Presence of prosthetic heart valve; Z68.24 Body mass index [BMI] 24.0-24.9, adult
CPT/HCPCS: 36415; 71045; 71275; 74174; 80048; 80053; 80061; 80076; 80202; 81001; 83690; 83735; 83880; 84145; 84484; 85025; 85610; 87428; 87449; 87633; 87635; 93005; 94640; 94668; 97116; 97161; 97166; 97530; 97535; 97802; 99252; 99285; J7050; Q9967; A4216; G0463; U0003; U0005

== ENCOUNTER 2022-11-01 20:42 | Inpatient (IN) | payer MEDICARE, OTHER, SELFPAY ==
[2022-11-01 20:43] VITALS: BP 133/67; PULSE 88; RESP 18; TEMP 36.6; O2SAT 94; BMI 24.3
--- NOTE | 2022-11-01 21:11 | RAD_ITS ---
INDICATION: chest pain EXAMINATION/TECHNIQUE: X-RAY - portable upright AP chest x-ray COMPARISON: Chest x-ray and chest CT 10/20/2022 FINDINGS: LINES/DEVICES: None. LUNGS: Stable subsegmental fibrosis left midlung field. No consolidations or pleural effusions, no vascular congestion. MEDIASTINUM AND CARDIOVASCULAR STRUCTURES: Stable cardiomegaly with changes from prior cardiac surgery. Retrocardiac hiatal hernia identified. BONES AND SOFT TISSUES: No acute changes. RAD/Chest 1 View (Portable) IMPRESSION: Cardiomegaly without radiographic evidence of acute cardiopulmonary disease. Electronically Signed: Jean Mendiola MD at 21:50 EDT ,
[2022-11-01 21:25] LABS: Absolute Lymphocyte Count 1.02 X10^3/uL (0.83-4.51); Absolute Neutrophil Count 17.4 X10^3/uL (2.0-7.7); Basophil# 0.06 X10^3/uL; Basophil% 0.3 % (0-1); Eosinophil# 0.08 X10^3/uL; Eosinophils% 0.4 % (0-5); Hematocrit 43.3 % (37-47); Hemoglobin 13.4 g/dL (12.0-15.0); Lymphocyte # 1.02 X10^3/ul (0.83-4.51); Lymphocyte % 5.1 % (19-41); Mean Corp Hgb Conc 30.9 g/dL (32-36); Mean Corpuscular Hgb 28.1 pg (27.0-32.0); Mean Corpuscular Volume 90.8 fL (81-99); Mean Platelet Vol. 10.2 fl (6.2-12.0); Monocyte# 1.29 X10^3/uL; Monocyte% 6.5 % (0-10); NRBC Flagged by Analyzer 0 % (0-5); Neutrophil # 17.36 X10^3/uL (2.7-7.7); Neutrophil % 86.8 % (47-70); Platelet Count 384 K/mm3 (150-450); RBC Distribution Width CV 14.2 % (11.6-14.6); RBC Distribution Width SD 47.2 fl (35.1-43.9); Red Blood Count 4.77 M/mm3 (4.2-5.4)
[2022-11-01 21:47] LABS: Anion Gap 6 (5-15); BUN 21 mg/dL (7-18); BUN/Creat Ratio 14.6 RATIO (10-20); Calcium,Total 9.5 mg/dL (8.5-10.1); Chloride 103 mmol/L (98-107); Creatinine, Serum 1.44 mg/dL (0.55-1.02); EST Glomerular Filtration Rate 37 mL/min (>60); Est Glom Filt Rate - Afr Amer 45 mL/min (>60); Glucose 96 mg/dL (74-106); Potassium 3.6 mmol/L (3.5-5.1); Sodium Level 140 mmol/L (136-145); Troponin-I HS (w/2H Reflex) 389 pg/mL (3.0-54.0)
[2022-11-01 22:01] VITALS: BP 121/55; PULSE 74; RESP 16; O2SAT 91
--- NOTE | 2022-11-01 22:35 | PCM.HP.STD ---
HPI - General General Date of Admission: 11/01/22 Date of Service: 11/01/22 Chief Complaint: Chest pain HPI Narrative ELZA CHU, is a 76 F who presented to the emergency department at [facility] on 11/01/2022 after experiencing chest pain earlier today. Patient states she was walking down the hallway at which time she experienced chest pressure on the left side of her chest that radiated to her left shoulder. She stated she rested and her symptoms went away and they have not returned. She has never had this previously and at the time of my evaluation her symptoms had completely resolved. She did not have any associated shortness of breath, nausea, or vomiting. Pain did not radiate anywhere else other than to her left shoulder. Her cardiac history does include paroxysmal atrial fibrillation, mild CAD, mechanical aortic valve, chronic diastolic heart failure, hyperlipidemia, and hypertension. She follows as an outpatient with cardiology and was last seen by Dr. Mckay on 05/22/2022. Vital signs on presentation showed a temperature of 97.9, heart rate 88, blood pressure 133/67, respiratory rate was 18 and oxygen saturations were 94% on room air. CBC showed a leukocytosis with a white count of 20,000 and a left shift with an 86.8% neutrophilia. The patient has been on steroids at home for recent admission related to pneumonia and asthma. Her INR is 2.4. Her chemistry panel shows normal electrolytes however BUN and serum creatinine are elevated from baseline at 21 and 1.44 respectively. Baseline serum creatinine appears to be between 0.9 and 1. Her liver functions are normal. Her troponin was elevated at 389. This was her initial troponin on presentation. Her BNP was slightly elevated at 102. Chest x-ray is unremarkable. EKG shows poor R wave progression, normal intervals, and no ST-T wave changes concerning for acute ischemia. 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 Nonrheumatic aortic valve regurgitation Nonspecific chest pain Obesity Palpitations Severe sepsis Syncope and collapse Home Medications pantoprazole 40 mg tablet,delayed release 40 mg PO BID ACID REFLUX 01/14/15 [History Last Taken 07/07/20] bupropion HCl 150 mg 24 hr tablet, extended release 150 mg PO DAILY DEPRESSION 11/15/15 [History Last Taken 07/07/20] montelukast 10 mg tablet 10 mg PO QHS ALLERGIES 05/03/17 [History Last Taken 07/06/20] potassium chloride 20 mEq tablet,extended release(part/cryst) 20 meq PO DAILY SUPPLEMENT 05/03/17 [History Last Taken 07/06/20] aspirin 81 mg chewable tablet 162 mg PO DAILY HEART HEALTH 09/04/17 [History Last Taken 07/07/20] lorazepam 0.5 mg tablet 0.5 mg PO BID PRN ANXIETY 09/04/17 [History Last Taken 07/07/20] furosemide 40 mg tablet 40 mg PO DAILY WATER PILL ##0 12/06/17 [Rx Last Taken 07/06/20] cholecalciferol (vitamin D3) 1,250 mcg (50,000 unit) capsule 50,000 unit PO FR SUPPLEMENT 06/16/19 [History Last Taken 06/25/20] acetaminophen 650 mg tablet,extended release 650 mg PO Q6H PRN BACK PAIN 07/07/20 [History Last Taken 07/07/20] albuterol sulfate 2.5 mg/3 mL (0.083 %) solution for nebulization 2.5 mg (3 mL) inhalation Q4H PRN #25 vials 05/21/21 [Rx Last Taken Unknown] triamcinolone acetonide 55 mcg nasal spray aerosol (Nasacort) 1 spray intranasal DAILY #16.9 mL 06/10/21 [Rx Last Taken Unknown] albuterol sulfate 90 mcg/actuation aerosol inhaler 2 puff inhalation Q4H PRN shortness of breath or wheezing #8.5 grams 10/04/21 [Rx Last Taken Unknown] famotidine 20 mg tablet 20 mg PO DAILY PRN gerd 11/29/21 [History Last Taken Unknown] ferrous sulfate 325 mg (65 mg iron) tablet 325 mg PO BID Check with primary doctor 11/29/21 [History Last Taken Unknown] paroxetine HCl 20 mg tablet 10 mg PO BID Check with primary doctor 11/29/21 [History Last Taken Unknown] guaifenesin 1,200 mg tablet, extended release 12 hr 1,200 mg PO Q12H #60 tabs 04/04/22 [Rx Last Taken Unknown] fluticasone furoate 200 mcg-vilanterol 25 mcg/dose inhalation powder (Breo Ellipta) 1 inh inhalation DAILY #60 ea 08/07/22 [Rx Last Taken Unknown] pravastatin 80 mg tablet 80 mg PO QHS CHOLESTEROL LOWERING #90 tabs 09/25/22 [Rx Last Taken Unknown] tiotropium bromide 2.5 mcg/actuation mist for inhalation (Spiriva Respimat) 2 puff inhalation QDAY #3 ea 10/17/22 [Rx Last Taken Unknown] amiodarone 200 mg tablet 100 mg PO DAILY Check with primary doctor 10/20/22 [History Last Taken Unknown] ezetimibe 10 mg tablet (Zetia) 10 mg PO DAILY Check with primary doctor 10/20/22 [History Last Taken Unknown] metoprolol succinate 50 mg tablet,extended release 24 hr See Rx Instructions .Route .COMPLEX Check with primary doctor 10/20/22 [History Last Taken Unknown] warfarin 2.5 mg tablet 2.5 mg PO DAILY Check with primary doctor 10/20/22 [History Last Taken Unknown] doxycycline monohydrate 100 mg capsule 100 mg PO BID 3 days #7 CAPSULES 10/23/22 [Rx Last Taken Unknown] prednisone 20 mg tablet 40 mg PO DAILY 3 days #6 TABLETS 10/23/22 [Rx Last Taken Unknown] Allergy/AdvReac Type Severity Reaction Status Date / Time donepezil Allergy Severe shortness Verified 11/01/22 20:45 of breath risperidone Allergy Severe Confusion Verified 11/01/22 20:45 Sulfa (Sulfonamide Allergy Swelling Verified 11/01/22 20:45 Antibiotics) celecoxib [From Celebrex] AdvReac Severe Swelling Verified 11/01/22 20:45 dextromethorphan AdvReac Severe hallucinati Verified 11/01/22 20:45 [From Delsym] on adhesive AdvReac blisters Verified 11/01/22 20:45 codeine AdvReac Itching Verified 11/01/22 20:45 levofloxacin [From Levaquin] AdvReac pain in Verified 11/01/22 20:45 legs and swelling lisinopril AdvReac cough Verified 11/01/22 20:45 oxycodone [Oxycodone] AdvReac Itching Verified 11/01/22 20:45 oxycodone HCl [From Percocet] AdvReac Itching Verified 11/01/22 20:45 Penicillins AdvReac heart Verified 11/01/22 20:45 palpitations prochlorperazine edisylate AdvReac Low blood Verified 11/01/22 20:45 [From Compazine] pressure prochlorperazine maleate AdvReac Low blood Verified 11/01/22 20:45 [From Compazine] pressure tramadol HCl [From Ultram] AdvReac Itching Verified 11/01/22 20:45 Family History Mother Arthritis CAD (coronary artery disease) Father Arthritis High cholesterol CAD (coronary artery disease) Sister Diabetes High cholesterol Hypertension Brother Diabetes High cholesterol Hypertension Surgical History H/O aortic valve replacement History of back surgery History of foot surgery History of hysterectomy History of mechanical aortic valve replacement (~10/07/13) History of sinus surgery Social History household members: spouse Smoking Status: Never smoker alcohol intake: never substance use type: does not use caffeine: Yes Type: coffee what type of physical activity do you participate in: none seatbelt use: always do you feel safe at home: Yes ROS Constitutional Constitutional: Reports fatigue; Denies anorexia, change in weight, chills, fever(s), malaise, night sweats, weakness or other Eyes Eyes: Denies blurry vision, change in eye color, change in vision, discharge from eye(s), double vision, erythema, eye pain, loss of vision or other ENT HEENT: Denies abnormal hearing, dysphagia, ear pain, epistaxis, headache(s), hearing loss, nasal congestion, nasal discharge, post nasal drip, sinus pressure, sore throat or other Cardiovascular Cardiovascular: Reports chest pain and dyspnea on exertion; Denies claudication, edema, lightheadedness, orthopnea, palpitations, paroxysmal nocturnal dyspnea, rapid heart rate, syncope or other Respiratory/Chest Respiratory/Chest: Reports wheezing; Denies cough, dyspnea, excessive phlegm production, hemoptysis, productive cough, shortness of breath at rest, shortness of breath with exertion or other Gastrointestinal Gastrointestinal: Denies abdominal pain, coffee ground emesis, constipation, diarrhea, dyspepsia, hematemesis, hematochezia, loose stools, melena, nausea, vomiting or other Genitourinary Genitourinary: Denies burning urination, difficulty urinating, dysuria, hematuria, nocturia, urinary frequency, urinary hesitancy, urinary incontinence, urinary urgency or other Musculoskeletal Musculoskeletal: Reports back pain; Denies arthralgias, joint pain, joint stiffness, joint swelling, myalgias, neck pain or other Neurologic Neurologic: Denies abnormal gait, abnormal speech, confusion, disequilibrium, dizziness, focal weakness, headache(s), numbness, paresthesias, seizure-like activity, seizures, syncope, tingling, tremor(s) or other Psychiatric Psychiatric: Reports anxiety and depression; Denies homicidal ideation, suicidal ideation or other Endocrine Endocrinology: Denies change in body appearance, cold intolerance, excessive sweating, heat intolerance, polydipsia, polyuria or other Hematologic/Lymphatic Hematologic/Lymphatic: Denies anemia, easy bleeding, easy bruising, lymphadenopathy or other Allergic/Immunologic Allergic/Immunologic: Denies rhinitis, hives, eczemia, asthma or other Vital Signs Vital Signs Vital Signs: 11/01/22 20:43 Temperature 97.9 F Temperature Source Temporal Pulse Rate 88 Respiratory Rate 18 Blood Pressure 133/67 H Blood Pressure Mean 89 Pulse Ox 94 Oxygen Delivery Method Room Air Weight Weight: 56.4 kg Body Mass Index (BMI) 24.3 Physical Exam Const alert, oriented x3, no apparent distress, average body habitus and well nourished Constitutional Narrative: Elderly white female sitting up in bed, appears comfortable, nontoxic, currently on 2 L supplemental oxygen General Appearance: cooperative HEENT normocephalic, head/scalp atraumatic, hearing grossly normal bilaterally and moist oral mucous membranes HEENT Narrative: Mallampati is 2, no thrush, dentures in place Eyes PERRL, EOMs intact bilaterally and conjunctivae normal Eyes Narrative: No scleral icterus Neck no lymphadenopathy, supple, no JVD and no carotid bruits Neck Narrative: Trachea midline, no thyroid enlargement Resp normal respiratory effort, no retractions, no use of accessory muscles and No clear to auscultation bilaterally Resp Narrative: Diffuse scattered wheezing and expiratory end inspiratory but no signs of respiratory distress Auscultation: wheezes; Negative for rales or rhonchi Cardio regular rate, regular rhythm, S1 normal heart sound, S2 normal heart sound, no murmurs, no rub, no gallops and no JVD; Negative for no clicks Cardio Narrative: Positive click noted most notably at left upper sternal border GI normal to inspection, nondistended, normoactive bowel sounds, soft to palpation and non-tender Extremity no clubbing, cyanosis or edema Extremity Narrative: Pedal pulses are 2+, cap refill is 2+ Skin No no rashes or lesions noted, no wounds, skin turgor normal, no jaundice, no petechiae and no mottling Skin Narrative: Scattered ecchymosis Neuro oriented x3, CN's II-XII intact bilaterally, moves all extremities and no focal motor deficits Speech: speech normal Psych affect normal Psych Narrative: Slightly anxious, eye contact is good, interaction is normal Results Lab / Micro Data Result Diagrams: 11/01/22 21:14 11/01/22 21:14 Labs: Laboratory Results - last 24 hr 11/01/22 21:14: WBC 20.0 H, RBC 4.77, Hgb 13.4, Hct 43.3, MCV 90.8, MCH 28.1, MCHC 30.9 L, RDW Std Deviation 47.2 H, RDW Coeff of Loki 14.2, Plt Count 384, MPV 10.2, Immature Gran % (Auto) 0.900, Neut % (Auto) 86.8 H, Lymph % (Auto) 5.1 L, [place] % (Auto) 6.5, Eos % (Auto) 0.4, Baso % (Auto) 0.3, Absolute Neuts (auto) 17.4 H, Absolute Lymphs (auto) 1.02, Nucleated RBC % 0 11/01/22 21:14: Sodium 140, Potassium 3.6, Chloride 103, Carbon Dioxide 31.0, Anion Gap 6, BUN 21 H, Creatinine 1.44 H, Estim Creat Clear Calc 23.50, Est GFR (MDRD) Af Amer 45 L, Est GFR (MDRD) Non-Af 37 L, BUN/Creatinine Ratio 14.6, Glucose 96, Calcium 9.5, Troponin I High Sens 389 H* Radiology Impression Chest X-Ray 11/01/22 21:11 IMPRESSION: Cardiomegaly without radiographic evidence of acute cardiopulmonary disease. Electronically Signed: Jean Mendiola MD at 21:50 EDT Reading Location ID and State: [address] [place] [address] Tel , Service support , Assessment & Plan Assessment/Plan (1) NSTEMI, initial episode of care: (2) Chest pain: (3) Leukocytosis: (4) ROXANA (acute kidney injury): PLAN: Plan Chest pain/NSTEMI -Initial troponin was elevated at 389 -EKG demonstrated no ST-T wave changes -Chest pain is currently resolved -Patient is on Coumadin at baseline but likely will hold--> trying to touch base with cardiology for their recommendations with anticoagulation as I suspect patient will need cardiac catheterization -Cycle cardiac enzymes -Check echocardiogram -Continue home aspirin/metoprolol/statin/Zetia--> switch pravastatin 80 mg to Lipitor 80 mg -Patient with allergy to ARIADNA inhibitors--> could consider ARB as ARIADNA allergy was cough -Patient had recent lipid profile performed on 10/21/2022 and had a total cholesterol of 163/LDL 94/VLDL of 16/HDL of 53 -Change in statin as above -Cardiology consult ROXANA on CKD stage II -Baseline serum creatinine is 0.91 -Current serum creatinine 1.44 -Hold Lasix -Gentle hydration with LR at 50 cc an hour x1 L -Repeat BMP in a.m. Leukocytosis -Patient with recent admission for pneumonia and was placed on steroids -Suspect related to this from demargination and reactive from NSTEMI -Repeat CBC in a.m. Asthma/bronchiectasis -Continue home inhalers -As needed albuterol -Recommend continued outpatient follow-up with pulmonary medicine PAF -Currently in normal sinus rhythm -Continue beta-milka -Continue amiodarone -We will hold Coumadin for now until we hear from cardiology on how they would like us to proceed -Anticipate initiation of heparin drip CAD/HTN/HPL -As above History of mechanical aortic valve replacement -[id number]-Szcawo, 2003, Redo AVR 10/10 (#21 On-X mechanical valve) -Goal INR is between 2 and 3 -INR is currently pending -On Coumadin at baseline -We will likely need to hold Coumadin as patient is expected to require cardiac catheterization Vitamin D deficiency -Continue ergocalciferol every Sunday GERD -Continue famotidine -Continue Protonix Lewy body dementia -Work-up pending at [facility] Depression/anxiety -Continue as needed Ativan -Continue home paroxetine -Continue home Wellbutrin DVT prophylaxis -Patient is fully anticoagulated CODE STATUS -DNR CCA with no intubation Charges/Coding Visit Charges Inpatient E&M: 51011 Init Hosp L3
[2022-11-01 22:46] VITALS: BP 116/66; PULSE 73; RESP 13; O2SAT 95
[2022-11-01 22:52] LABS: AST(SGOT) 16 U/L (15-37); Alanine Aminotransfer ALT/SGPT 15 U/L (13-56); Albumin, Serum 2.9 g/dL (3.2-5.0); Alkaline Phosphatase 88 U/L (45-117); Bilirubin, Direct 0.12 mg/dL (0.00-0.30); Globulin 3.9 g/dL (2.2-4.2); Protein, Total 6.8 g/dL (6.4-8.2)
[2022-11-01 23:11] LABS: International Normalized Ratio 2.4; Prothrombin Time (Protime)PT. 25.8 SECONDS (11.7-14.9)
[2022-11-01 23:46] VITALS: BP 129/58; PULSE 71; RESP 19; O2SAT 94
[2022-11-01] MEDS: Aspirin 81 MG TAB.CHEW 324 MG PO (23:49)
[2022-11-02] VITALS (15 sets, daily range): BP systolic 102–158; BP diastolic 58–108; PULSE 65–88; RESP 14–20; TEMP 36.1–37.1; O2SAT 94–97; BMI 23.6
[2022-11-02 00:12] LABS: Troponin-I HS 340 pg/mL (3.0-54.0)
--- NOTE | 2022-11-02 00:30 | EDS_ITS ---
HPI History of Present Illness Chief Complaint: Chest Pain Informant: patient Narrative Narrative: Patient is a 76-year-old female with history of proximal atrial fibrillation on chronic Coumadin therapy, mechanical heart valve, Lewy body dementia and recent admission for possible multifocal viral pneumonia presenting for chest pain. Patient states she was cooking when she developed a pressure on the left side of her chest. She denies any radiation. States this was around 5 PM. On my evaluation patient states her symptoms have subsided and she feels well again. She denies any swelling of her legs. She denies any history of DVT or PE. She is not very active per her son and has not noticed any increased dyspnea on exertion. Has no other complaints at this time. Was discharged home on steroids as well as 3 additional days of doxycycline which she has since completed. 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 Nonrheumatic aortic valve regurgitation Nonspecific chest pain Obesity Palpitations Severe sepsis Syncope and collapse Home Medications pantoprazole 40 mg tablet,delayed release 40 mg PO BID ACID REFLUX 01/14/15 [History Last Taken 07/07/20] bupropion HCl 150 mg 24 hr tablet, extended release 150 mg PO DAILY DEPRESSION 11/15/15 [History Last Taken 07/07/20] montelukast 10 mg tablet 10 mg PO QHS ALLERGIES 05/03/17 [History Last Taken 07/06/20] potassium chloride 20 mEq tablet,extended release(part/cryst) 20 meq PO DAILY SUPPLEMENT 05/03/17 [History Last Taken 07/06/20] aspirin 81 mg chewable tablet 162 mg PO DAILY HEART HEALTH 09/04/17 [History Last Taken 07/07/20] lorazepam 0.5 mg tablet 0.5 mg PO BID PRN ANXIETY 09/04/17 [History Last Taken 07/07/20] furosemide 40 mg tablet 40 mg PO DAILY WATER PILL ##0 12/06/17 [Rx Last Taken 07/06/20] cholecalciferol (vitamin D3) 1,250 mcg (50,000 unit) capsule 50,000 unit PO FR SUPPLEMENT 06/16/19 [History Last Taken 06/25/20] acetaminophen 650 mg tablet,extended release 650 mg PO Q6H PRN BACK PAIN 07/07/20 [History Last Taken 07/07/20] albuterol sulfate 2.5 mg/3 mL (0.083 %) solution for nebulization 2.5 mg (3 mL) inhalation Q4H PRN #25 vials 05/21/21 [Rx Last Taken Unknown] triamcinolone acetonide 55 mcg nasal spray aerosol (Nasacort) 1 spray intranasal DAILY #16.9 mL 06/10/21 [Rx Last Taken Unknown] albuterol sulfate 90 mcg/actuation aerosol inhaler 2 puff inhalation Q4H PRN shortness of breath or wheezing #8.5 grams 10/04/21 [Rx Last Taken Unknown] famotidine 20 mg tablet 20 mg PO DAILY PRN gerd 11/29/21 [History Last Taken Unknown] ferrous sulfate 325 mg (65 mg iron) tablet 325 mg PO BID Check with primary doctor 11/29/21 [History Last Taken Unknown] paroxetine HCl 20 mg tablet 10 mg PO BID Check with primary doctor 11/29/21 [History Last Taken Unknown] guaifenesin 1,200 mg tablet, extended release 12 hr 1,200 mg PO Q12H #60 tabs 04/04/22 [Rx Last Taken Unknown] fluticasone furoate 200 mcg-vilanterol 25 mcg/dose inhalation powder (Breo Ellipta) 1 inh inhalation DAILY #60 ea 08/07/22 [Rx Last Taken Unknown] pravastatin 80 mg tablet 80 mg PO QHS CHOLESTEROL LOWERING #90 tabs 09/25/22 [Rx Last Taken Unknown] tiotropium bromide 2.5 mcg/actuation mist for inhalation (Spiriva Respimat) 2 puff inhalation QDAY #3 ea 10/17/22 [Rx Last Taken Unknown] amiodarone 200 mg tablet 100 mg PO DAILY Check with primary doctor 10/20/22 [History Last Taken Unknown] ezetimibe 10 mg tablet (Zetia) 10 mg PO DAILY Check with primary doctor 10/20/22 [History Last Taken Unknown] metoprolol succinate 50 mg tablet,extended release 24 hr See Rx Instructions .Route .COMPLEX Check with primary doctor 10/20/22 [History Last Taken Unknown] warfarin 2.5 mg tablet 2.5 mg PO DAILY Check with primary doctor 10/20/22 [History Last Taken Unknown] doxycycline monohydrate 100 mg capsule 100 mg PO BID 3 days #7 CAPSULES 10/23/22 [Rx Last Taken Unknown] prednisone 20 mg tablet 40 mg PO DAILY 3 days #6 TABLETS 10/23/22 [Rx Last Taken Unknown] Allergy/AdvReac Type Severity Reaction Status Date / Time donepezil Allergy Severe shortness Verified 11/01/22 20:45 of breath risperidone Allergy Severe Confusion Verified 11/01/22 20:45 Sulfa (Sulfonamide Allergy Swelling Verified 11/01/22 20:45 Antibiotics) celecoxib [From Celebrex] AdvReac Severe Swelling Verified 11/01/22 20:45 dextromethorphan AdvReac Severe hallucinati Verified 11/01/22 20:45 [From Delsym] on adhesive AdvReac blisters Verified 11/01/22 20:45 codeine AdvReac Itching Verified 11/01/22 20:45 levofloxacin [From Levaquin] AdvReac pain in Verified 11/01/22 20:45 legs and swelling lisinopril AdvReac cough Verified 11/01/22 20:45 oxycodone [Oxycodone] AdvReac Itching Verified 11/01/22 20:45 oxycodone HCl [From Percocet] AdvReac Itching Verified 11/01/22 20:45 Penicillins AdvReac heart Verified 11/01/22 20:45 palpitations prochlorperazine edisylate AdvReac Low blood Verified 11/01/22 20:45 [From Compazine] pressure prochlorperazine maleate AdvReac Low blood Verified 11/01/22 20:45 [From Compazine] pressure tramadol HCl [From Ultram] AdvReac Itching Verified 11/01/22 20:45 Family History Mother Arthritis CAD (coronary artery disease) Father Arthritis High cholesterol CAD (coronary artery disease) Sister Diabetes High cholesterol Hypertension Brother Diabetes High cholesterol Hypertension Surgical History H/O aortic valve replacement History of back surgery History of foot surgery History of hysterectomy History of mechanical aortic valve replacement (~10/07/13) History of sinus surgery Social History household members: spouse Smoking Status: Never smoker alcohol intake: never substance use type: does not use caffeine: Yes Type: coffee what type of physical activity do you participate in: none seatbelt use: always do you feel safe at home: Yes ROS ROS ED Constitutional Constitutional ED: Denies chills or fever(s) Eyes Eyes: Denies change in vision ENT ENT ED: Denies sore throat Cardiovascular Cardiovascular: Reports as per HPI and chest pain Respiratory/Chest Respiratory/Chest: Reports cough; Denies dyspnea Gastrointestinal Gastrointestinal: Denies abdominal pain, nausea or vomiting Musculoskeletal Musculoskeletal: Denies arthralgias or myalgias Integumentary Denies rash Neurologic Neurologic: Denies weakness Psychiatric Psychiatric: Denies anxiety Hematologic/Lymphatic Hematologic/Lymphatic: Reports easy bleeding and easy bruising EXAM Physical Exam Const Vital Signs: 11/01/22 20:43 11/01/22 22:01 11/01/22 22:46 Temperature 97.9 F Temperature Source Temporal Pulse Rate 88 74 73 Respiratory Rate 18 16 13 Blood Pressure 133/67 H 121/55 H 116/66 Blood Pressure Mean 89 74 83 Pulse Ox 94 91 95 Oxygen Delivery Method Room Air Positive well nourished and well developed General Appearance ED: well developed and NAD HEENT Reports moist mucous membranes normocephalic and atraumatic Eyes PERRL and EOMs intact bilaterally Neck supple Neck Narrative: Positive JVD Chest Wall inspection of chest normal and palpation of chest normal Resp normal respiratory effort Resp Narrative: Coarse breath sounds, diminished at the bases, right worse than left. Scattered rhonchi. Cardio regular rate, regular rhythm and no murmurs GI normal to inspection, nondistended, normoactive bowel sounds and soft to palpation Extremity normal to inspection General Extremety ED: Negative for edema General Extremity: Negative for edema Neuro Neuro Narrative: At baseline, no focal deficits appreciated Sensorium / Orientation: awake and alert Psych mental status grossly normal Skin no rashes or lesions noted and no wounds Heart Score History: Moderately Suspicious ECG: Nonspecific Repolarization Age: >/= 65 years Risk Factors: >/= 3 Risk Factors or History of CAD Troponin: >/=3 x Normal Limit Score: 8 MDM MDM MDM Narrative Medical decision making narrative: Patient evaluated for an episode of chest pressure. She currently has no symptoms. Protocol orders are placed. Patient is found to have a significantly elevated high-sensitivity troponin at 389. On my evaluation patient currently has no chest pain. She is chronically anticoagulated on Coumadin and is given a dose of aspirin in the emergency room. She does not have any active chest pain will defer nitro at this time. Chest x-ray shows cardiomegaly with no other acute changes. This is interpreted by myself as well as radiology. Patient's lab work is significant for leukocytosis of 20.0 however patient had a leukocytosis during her recent hospitalization and has been on steroids which confound the picture. In addition patient also had a leukocytosis during her recent hospitalization. Her creatinine is mildly elevated at 1.44 which is slightly above her baseline of 1. Patient does have some intermittent episodes of desaturation to 89% while in the bed. She is placed on 2 is of oxygen. Patient states she does wear oxygen when she sleeps. Question of this could be a type II NSTEMI associate with hypoxia. The case is discussed with cardiology on-call Dr. Galicia, who suggest that further decisions be made in the morning and to defer holding her Coumadin or starting heparin drip until he sees her in the morning. Case discussed with admitting physician, Dr. Olvera, patient is admitted to the PCU. Patient and son agreeable with plan of care. Discharge summary from recent hospitalization independently reviewed by myself. Patient was treated for hypoxia due to right multifocal pneumonia and has stable chronic heart failure with preserved ejection fraction. She was treated with aerosols, Solu-Medrol, Banken Zosyn in the ER and has a history of Pseudomonas on broad-spectrum antibiotics while in the hospital. She was then de-escalated to doxycycline and discharged home. History & Record Review Discussion w/independent historian: Family (First of concern of patient's dementia and inability to care for her at home. Thinks she might need placement.) Additional record(s) reviewed:: Prior inpatient record Lab Data Attestation: I reviewed the patient's lab results. Labs: Laboratory Results - last 24 hr 11/01/22 11/01/22 11/01/22 21:14 21:14 21:14 WBC 20.0 H RBC 4.77 Hgb 13.4 Hct 43.3 MCV 90.8 MCH 28.1 MCHC 30.9 L RDW Std Deviation 47.2 H RDW Coeff of Loki 14.2 Plt Count 384 MPV 10.2 Immature Gran % (Auto) 0.900 Neut % (Auto) 86.8 H Lymph % (Auto) 5.1 L [place] % (Auto) 6.5 Eos % (Auto) 0.4 Baso % (Auto) 0.3 Absolute Neuts (auto) 17.4 H Absolute Lymphs (auto) 1.02 Nucleated RBC % 0 PT INR Sodium 140 Potassium 3.6 Chloride 103 Carbon Dioxide 31.0 Anion Gap 6 BUN 21 H Creatinine 1.44 H Estim Creat Clear Calc 23.50 Est GFR (MDRD) Af Amer 45 L Est GFR (MDRD) Non-Af 37 L BUN/Creatinine Ratio 14.6 Glucose 96 Calcium 9.5 Total Bilirubin Direct Bilirubin AST ALT Alkaline Phosphatase Troponin I High Sens 389 H* B-Natriuretic Peptide 102.0 H Total Protein Albumin Globulin 11/01/22 11/01/22 21:14 21:14 WBC RBC Hgb Hct MCV MCH MCHC RDW Std Deviation RDW Coeff of [place] Plt Count MPV Immature Gran % (Auto) Neut % (Auto) Lymph % (Auto) [place] % (Auto) Eos % (Auto) Baso % (Auto) Absolute Neuts (auto) Absolute Lymphs (auto) Nucleated RBC % PT 25.8 H INR 2.4 Sodium Potassium Chloride Carbon Dioxide Anion Gap BUN Creatinine Estim Creat Clear Calc Est GFR (MDRD) Af Amer Est GFR (MDRD) Non-Af BUN/Creatinine Ratio Glucose Calcium Total Bilirubin 0.30 Direct Bilirubin 0.12 AST 16 ALT 15 Alkaline Phosphatase 88 Troponin I High Sens B-Natriuretic Peptide Total Protein 6.8 Albumin 2.9 L Globulin 3.9 Radiography Chest X-Ray - ED: 1 View, Read by ED Physician, Read by Radiologist, No Acute Disease and Cardiomegaly Diagnostic Testing: Clinical Impression(s) from Imaging Studies Chest X-Ray 11/01/22 21:11 IMPRESSION: Cardiomegaly without radiographic evidence of acute cardiopulmonary disease. Electronically Signed: Jean Mendiola MD at 21:50 EDT , Rhythm Strip Rhythm Strip: Sinus Rhythm Rate: 82 Ectopy: None EKG Initial EKG: Attestation: I personally reviewed and interpreted this EKG as follows: Comments: Sinus rhythm at a rate of 82 bpm Normal axis Normal intervals Nonspecific T wave inversion in aVL, V1 and V2 Compared to prior EKG on 10/20/2022, T wave inversion in aVL is new Discharge Plan Triage Chief Complaint: Chest Pain ED Provider: Velma Leavitt Dx/Rx/DC Orders Clinical Impression: NSTEMI, initial episode of care, Chest pain, Leukocytosis, ROXANA (acute kidney injury) Primary Care Provider: Harley Cornejo Disposition Disposition: Acute Care Hospital [facility] Discharge Date/Time: 11/02/22 00:29
--- NOTE | 2022-11-02 00:57 | PCM.HOSP.N ---
Hospitalist Note Case was discussed with cardiology-Dr. Galicia-by the emergency department physician. He did not give any input and stated he would see the patient in the morning. At this point I will hold the Coumadin as her INR is therapeutic at 2.5 for an aortic valve and they can decide tomorrow whether or not she needs reversed and placed on heparin drip. We will maintain n.p.o. after midnight in case cardiac catheterization is pursued.
[2022-11-02] MEDS: guaiFENesin 1,200 MG Tablet 1200 MG PO ×3 (05:32→22:13)
[2022-11-02] MEDS: Acetaminophen 500 MG Tablet 1000 MG PO ×3 (05:32→22:13)
[2022-11-02 05:59] LABS: Absolute Lymphocyte Count 0.86 X10^3/uL (0.83-4.51); Absolute Neutrophil Count 11.5 X10^3/uL (2.0-7.7); Basophil# 0.04 X10^3/uL; Basophil% 0.3 % (0-1); Eosinophil# 0.12 X10^3/uL; Eosinophils% 0.9 % (0-5); Hematocrit 36.1 % (37-47); Hemoglobin 11.4 g/dL (12.0-15.0); Lymphocyte # 0.86 X10^3/ul (0.83-4.51); Lymphocyte % 6.3 % (19-41); Mean Corp Hgb Conc 31.6 g/dL (32-36); Mean Corpuscular Hgb 28.9 pg (27.0-32.0); Mean Corpuscular Volume 91.6 fL (81-99); Mean Platelet Vol. 10.3 fl (6.2-12.0); Monocyte# 0.99 X10^3/uL; Monocyte% 7.3 % (0-10); NRBC Flagged by Analyzer 0 % (0-5); Neutrophil # 11.46 X10^3/uL (2.7-7.7); Neutrophil % 84.5 % (47-70); Platelet Count 310 K/mm3 (150-450); RBC Distribution Width CV 14.2 % (11.6-14.6); RBC Distribution Width SD 47.6 fl (35.1-43.9); Red Blood Count 3.94 M/mm3 (4.2-5.4); White Blood Count 13.6 K/mm3 (4.4-11.0)
[2022-11-02 06:19] LABS: International Normalized Ratio 2.7
[2022-11-02 06:42] LABS: ALB/GLOB Ratio 0.8 RATIO (0.9-2.4); AST(SGOT) 14 U/L (15-37); Alanine Aminotransfer ALT/SGPT 12 U/L (13-56); Albumin, Serum 2.3 g/dL (3.2-5.0); Alkaline Phosphatase 70 U/L (45-117); Anion Gap 7 (5-15); BUN 19 mg/dL (7-18); BUN/Creat Ratio 17.4 RATIO (10-20); Calcium,Total 9.1 mg/dL (8.5-10.1); Chloride 107 mmol/L (98-107); Creatinine, Serum 1.09 mg/dL (0.55-1.02); EST Glomerular Filtration Rate 52 mL/min (>60); Est Glom Filt Rate - Afr Amer 63 mL/min (>60); Estimated Creatinine Clearance 31.05 ml/min; Glucose 84 mg/dL (74-106); Magnesium 1.8 mg/dL (1.6-2.6); Potassium 3.3 mmol/L (3.5-5.1); Protein, Total 5.3 g/dL (6.4-8.2); Sodium Level 141 mmol/L (136-145); Thyroid Stim Hormone (TSH) 1.76 uIU/mL (0.358-3.74)
[2022-11-02] MEDS: Ipratropium/Albuterol Sulfate 3 ML AMPUL.NEB INHALATION ×3 (06:52→19:14)
[2022-11-02] MEDS: Budesonide Respules 0.5 MG/2 ML AMPUL.NEB. INHALATION ×2 (06:53→19:14)
[2022-11-02] MEDS: Amiodarone 200 MG Tablet 100 MG PO (07:53)
[2022-11-02] MEDS: Aspirin 81 MG TAB.CHEW 162 MG PO (07:54)
[2022-11-02 08:13] LABS: Troponin-I HS 287 pg/mL (3.0-54.0)
--- NOTE | 2022-11-02 08:48 | PCM.PN.HOSP ---
Subjective Subjective Doing well, denies any chest pain or shortness of breath. No issues overnight Objective Data Objective Data Vital Signs: Vital Signs Temp Pulse Resp BP Pulse Ox O2 Del Method O2 Flow Rate 97.9 F 76 18 127/82 H 97 Nasal Cannula 2 11/02/22 07:52 11/02/22 07:52 11/02/22 07:52 11/02/22 07:52 11/02/22 07:52 11/02/22 07:52 11/02/22 07:52 Oxygen Flow Rate (L/min) 2 Oxygen Delivery Method Nasal Cannula Weight: 120 lb 13.013 oz Body Mass Index (BMI) 23.6 Intake & Output: Intake and Output for Last 24 Hours 11/01/22 11/02/22 11/03/22 03:59 03:59 03:59 Intake Total 100 / 100 Balance 100 / 100 Lab / Micro Data Result Diagrams: 11/02/22 03:50 11/02/22 03:50 Labs: Laboratory Results - last 24 hr 11/01/22 21:14: WBC 20.0 H, RBC 4.77, Hgb 13.4, Hct 43.3, MCV 90.8, MCH 28.1, MCHC 30.9 L, RDW Std Deviation 47.2 H, RDW Coeff of [place]oki 14.2, Plt Count 384, MPV 10.2, Immature Gran % (Auto) 0.900, Neut % (Auto) 86.8 H, Lymph % (Auto) 5.1 L, [place] % (Auto) 6.5, Eos % (Auto) 0.4, Baso % (Auto) 0.3, Absolute Neuts (auto) 17.4 H, Absolute Lymphs (auto) 1.02, Nucleated RBC % 0 11/01/22 21:14: Sodium 140, Potassium 3.6, Chloride 103, Carbon Dioxide 31.0, Anion Gap 6, BUN 21 H, Creatinine 1.44 H, Estim Creat Clear Calc 23.50, Est GFR (MDRD) Af Amer 45 L, Est GFR (MDRD) Non-Af 37 L, BUN/Creatinine Ratio 14.6, Glucose 96, Calcium 9.5, Troponin I High Sens 389 H* 11/01/22 21:14: B-Natriuretic Peptide 102.0 H 11/01/22 21:14: PT 25.8 H, INR 2.4 04/05/23 21:14: Total Bilirubin 0.30, Direct Bilirubin 0.12, AST 16, ALT 15, Alkaline Phosphatase 88, Total Protein 6.8, Albumin 2.9 L, Globulin 3.9 11/01/22 23:32: Troponin I High Sens 340 H* 11/02/22 03:45: Troponin I High Sens 287 H* 11/02/22 03:50: WBC 13.6 H, RBC 3.94 L, Hgb 11.4 L, Hct 36.1 L, MCV 91.6, MCH 28.9, MCHC 31.6 L, RDW Std Deviation 47.6 H, RDW Coeff of [place]oki 14.2, Plt Count 310, MPV 10.3, Immature Gran % (Auto) 0.700, Neut % (Auto) 84.5 H, Lymph % (Auto) 6.3 L, [place] % (Auto) 7.3, Eos % (Auto) 0.9, Baso % (Auto) 0.3, Absolute Neuts (auto) 11.5 H, Absolute Lymphs (auto) 0.86, Nucleated RBC % 0 11/02/22 03:50: Sodium 141, Potassium 3.3 L, Chloride 107, Carbon Dioxide 27.0, Anion Gap 7, BUN 19 H, Creatinine 1.09 H, Estim Creat Clear Calc 31.05, Est GFR (MDRD) Af Amer 63, Est GFR (MDRD) Non-Af 52 L, BUN/Creatinine Ratio 17.4, Glucose 84, Calcium 9.1, Magnesium 1.8, Total Bilirubin 0.40, AST 14 L, ALT 12 L, Alkaline Phosphatase 70, Total Protein 5.3 L, Albumin 2.3 L, Globulin 3.0, Albumin/Globulin Ratio 0.8 L, TSH 1.76 11/02/22 03:50: PT 28.0 H, INR 2.7 11/02/22 03:50: Phosphorus 3.0 Radiography Diagnostic Testing: Radiology Impression Chest X-Ray 11/01/22 21:11 IMPRESSION: Cardiomegaly without radiographic evidence of acute cardiopulmonary disease. Electronically Signed: Jean Mendiola MD at 21:50 EDT , Rhythm Strip Rhythm Strip: Sinus Rhythm Rate: 82 Ectopy: None Physical Exam Narrative General: Alert, Oriented x3, Cooperative, No apparent distress HEENT: Atraumatic, PERRLA, EOMI, Normocephalic Oral: Moist Mucosa Neck: Supple, No JVD Lungs: Diminished, Normal air movement, No rhonchi, slight wheeze, No rales Cardiovascular: Regular rate, Regular Rhythm, Normal S1, Normal S2, No murmurs Abdomen: Soft, Non Tender, Non-Distended, No Hepato-splenomegaly Extremities: No edema, Capillary Refill Less than 3 Seconds Skin: No rashes, No breakdown Musculoskeletal: No Tenderness to Palpation of Joints or Extremities Neurological: Cranial nerves II-XII grossly intact, Motor Exam 5/5 strength throughout, Sensory exam intact to light touch and pain Psych/Mental Status: Normal Affect, Appropriate Assessment & Plan Assessment/Plan (1) NSTEMI, initial episode of care: (2) Chest pain: (3) Leukocytosis: (4) ROXANA (acute kidney injury): PLAN: Plan 1. Non-STEMI unclear type/paroxysmal A-fib/CAD/HTN/HLD/history of aortic valve replacement/ROXANA ? Troponin is elevated but trending downwards ? No significant EKG changes ? Unsure as to the plan as cardiology has not seen her yet ? She is on Coumadin for her A-fib and this was supratherapeutic so this was discontinued but unclear as to cardiology's plans and no heparin drip ? Echo is pending ? Can resume her home aspirin as well as metoprolol, statin, Zetia ? ROXANA has resolved, creatinine is back to almost baseline 2. Leukocytosis likely related to recent pneumonia and steroid usage 3. Asthma/bronchiectasis ? Stable ? Continue with her home inhalers 4. GERD ? Stable Did continue with PPI and Pepcid 5. Anxiety/depression/Lewy body dementia ? Stable continue with her home medications ? She is currently getting worked up for Lewy body dementia at [facility] Main campus DVT: Therapeutic INR Charges/Coding Visit Charges Inpatient E&M: 35289 Subs Hosp L2
--- NOTE | 2022-11-02 09:38 | CON.PCM.CA_ITS ---
Assessment & Plan Assessment/Plan (1) NSTEMI, initial episode of care: PLAN: Presently asymptomatic. Options discussed with patient. Cardiac catheterization versus medical management discussed. Patient absolutely refuses to entertain any cardiac work-up at all. She opts for medical management and wishes to go home. Start on aspirin. Start on low-dose beta-blockers and amlodipine. (2) PAF (paroxysmal atrial fibrillation): PLAN: Maintaining normal sinus rhythm on amiodarone. (3) History of mechanical aortic valve replacement: PLAN: Continue warfarin for anticoagulation. (4) Essential hypertension: PLAN: Controlled. (5) COPD (chronic obstructive pulmonary disease): PLAN: As per internal medicine. HPI Consult Data Date of Consult: 11/02/22 HPI Narrative Reason for Consultation: NSTEMI HPI Narrative: The patient presented to the hospital with complaints of chest pain. She described the chest pain as radiating to her left shoulder. This was relieved with rest. Since then, she has been asymptomatic. Patient has previous history of aortic valve disease status post replacement with a mechanical valve. Also history of mild CAD. History of paroxysmal atrial fibrillation, maintaining normal sinus rhythm on amiodarone. 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 Nonrheumatic aortic valve regurgitation Nonspecific chest pain Obesity Palpitations Severe sepsis Syncope and collapse Home Medications pantoprazole 40 mg tablet,delayed release 40 mg PO BID ACID REFLUX 01/14/15 [History Last Taken 07/07/20] bupropion HCl 150 mg 24 hr tablet, extended release 150 mg PO DAILY DEPRESSION 11/15/15 [History Last Taken 07/07/20] montelukast 10 mg tablet 10 mg PO QHS ALLERGIES 05/03/17 [History Last Taken 07/06/20] potassium chloride 20 mEq tablet,extended release(part/cryst) 20 meq PO DAILY SUPPLEMENT 05/03/17 [History Last Taken 07/06/20] aspirin 81 mg chewable tablet 162 mg PO DAILY HEART HEALTH 09/04/17 [History Last Taken 07/07/20] lorazepam 0.5 mg tablet 0.5 mg PO BID PRN ANXIETY 09/04/17 [History Last Taken 07/07/20] furosemide 40 mg tablet 40 mg PO DAILY WATER PILL ##0 12/06/17 [Rx Last Taken 07/06/20] cholecalciferol (vitamin D3) 1,250 mcg (50,000 unit) capsule 50,000 unit PO FR SUPPLEMENT 06/16/19 [History Last Taken 06/25/20] acetaminophen 650 mg tablet,extended release 650 mg PO Q6H PRN BACK PAIN 07/07/20 [History Last Taken 07/07/20] albuterol sulfate 2.5 mg/3 mL (0.083 %) solution for nebulization 2.5 mg (3 mL) inhalation Q4H PRN #25 vials 05/21/21 [Rx Last Taken Unknown] triamcinolone acetonide 55 mcg nasal spray aerosol (Nasacort) 1 spray intranasal DAILY #16.9 mL 06/10/21 [Rx Last Taken Unknown] albuterol sulfate 90 mcg/actuation aerosol inhaler 2 puff inhalation Q4H PRN shortness of breath or wheezing #8.5 grams 10/04/21 [Rx Last Taken Unknown] famotidine 20 mg tablet 20 mg PO DAILY PRN gerd 11/29/21 [History Last Taken Unknown] ferrous sulfate 325 mg (65 mg iron) tablet 325 mg PO BID Check with primary doctor 11/29/21 [History Last Taken Unknown] paroxetine HCl 20 mg tablet 10 mg PO BID Check with primary doctor 11/29/21 [History Last Taken Unknown] guaifenesin 1,200 mg tablet, extended release 12 hr 1,200 mg PO Q12H #60 tabs 04/04/22 [Rx Last Taken Unknown] fluticasone furoate 200 mcg-vilanterol 25 mcg/dose inhalation powder (Breo Ellipta) 1 inh inhalation DAILY #60 ea 08/07/22 [Rx Last Taken Unknown] pravastatin 80 mg tablet 80 mg PO QHS CHOLESTEROL LOWERING #90 tabs 09/25/22 [Rx Last Taken Unknown] tiotropium bromide 2.5 mcg/actuation mist for inhalation (Spiriva Respimat) 2 puff inhalation QDAY #3 ea 10/17/22 [Rx Last Taken Unknown] amiodarone 200 mg tablet 100 mg PO DAILY Check with primary doctor 10/20/22 [History Last Taken Unknown] ezetimibe 10 mg tablet (Zetia) 10 mg PO DAILY Check with primary doctor 10/20/22 [History Last Taken Unknown] metoprolol succinate 50 mg tablet,extended release 24 hr See Rx Instructions .Route .COMPLEX Check with primary doctor 10/20/22 [History Last Taken Unknown] warfarin 2.5 mg tablet 2.5 mg PO DAILY Check with primary doctor 10/20/22 [History Last Taken Unknown] doxycycline monohydrate 100 mg capsule 100 mg PO BID 3 days #7 CAPSULES 10/23/22 [Rx Last Taken Unknown] prednisone 20 mg tablet 40 mg PO DAILY 3 days #6 TABLETS 10/23/22 [Rx Last Taken Unknown] Allergy/AdvReac Type Severity Reaction Status Date / Time donepezil Allergy Severe shortness Verified 11/01/22 20:45 of breath risperidone Allergy Severe Confusion Verified 11/01/22 20:45 Sulfa (Sulfonamide Allergy Swelling Verified 11/01/22 20:45 Antibiotics) celecoxib [From Celebrex] AdvReac Severe Swelling Verified 11/01/22 20:45 dextromethorphan AdvReac Severe hallucinati Verified 11/01/22 20:45 [From Delsym] on adhesive AdvReac blisters Verified 11/01/22 20:45 codeine AdvReac Itching Verified 11/01/22 20:45 levofloxacin [From Levaquin] AdvReac pain in Verified 11/01/22 20:45 legs and swelling lisinopril AdvReac cough Verified 11/01/22 20:45 oxycodone [Oxycodone] AdvReac Itching Verified 11/01/22 20:45 oxycodone HCl [From Percocet] AdvReac Itching Verified 11/01/22 20:45 Penicillins AdvReac heart Verified 11/01/22 20:45 palpitations prochlorperazine edisylate AdvReac Low blood Verified 11/01/22 20:45 [From Compazine] pressure prochlorperazine maleate AdvReac Low blood Verified 11/01/22 20:45 [From Compazine] pressure tramadol HCl [From Ultram] AdvReac Itching Verified 11/01/22 20:45 Family History Mother Arthritis CAD (coronary artery disease) Father Arthritis High cholesterol CAD (coronary artery disease) Sister Diabetes High cholesterol Hypertension Brother Diabetes High cholesterol Hypertension Surgical History H/O aortic valve replacement History of back surgery History of foot surgery History of hysterectomy History of mechanical aortic valve replacement (~10/07/13) History of sinus surgery Social History (Updated 11/02/22 @ 00:49 by Danya Fay) household members: spouse number of children: 2 Smoking Status: Never smoker alcohol intake: never substance use type: does not use caffeine: Yes Type: coffee what type of physical activity do you participate in: none seatbelt use: always do you feel safe at home: Yes Physical Exam Narrative Appears chronically ill. Presently comfortable, no acute distress. Mechanical heart sound audible. Chest examination reveals markedly decreased air entry bilaterally with scattered wheeze. Alert oriented x3. No ankle edema noted. Risk Stratification Risk Stratification Applicable: No Objective Data Vital Signs: Vital Signs Temp Pulse Resp BP Pulse Ox O2 Del Method O2 Flow Rate 97.9 F 76 18 127/82 H 97 Nasal Cannula 2 11/02/22 07:52 11/02/22 07:52 11/02/22 07:52 11/02/22 07:52 11/02/22 07:52 11/02/22 08:15 11/02/22 08:15 Oxygen Flow Rate (L/min) 2 Oxygen Delivery Method Nasal Cannula Weight: 120 lb 13.013 oz Body Mass Index (BMI) 23.6 Intake & Output: Intake and Output for Last 24 Hours 10/31/22 11/01/22 11/02/22 23:59 23:59 23:59 Intake Total 100 / 100 Balance 100 / 100 Lab / Micro Data Result Diagrams: 11/02/22 03:50 11/02/22 03:50 Labs: Laboratory Results - last 24 hr 11/01/22 21:14: WBC 20.0 H, RBC 4.77, Hgb 13.4, Hct 43.3, MCV 90.8, MCH 28.1, MCHC 30.9 L, RDW Std Deviation 47.2 H, RDW Coeff of Loki 14.2, Plt Count 384, MPV 10.2, Immature Gran % (Auto) 0.900, Neut % (Auto) 86.8 H, Lymph % (Auto) 5.1 L, [place] % (Auto) 6.5, Eos % (Auto) 0.4, Baso % (Auto) 0.3, Absolute Neuts (auto) 17.4 H, Absolute Lymphs (auto) 1.02, Nucleated RBC % 0 11/01/22 21:14: Sodium 140, Potassium 3.6, Chloride 103, Carbon Dioxide 31.0, Anion Gap 6, BUN 21 H, Creatinine 1.44 H, Estim Creat Clear Calc 23.50, Est GFR (MDRD) Af Amer 45 L, Est GFR (MDRD) Non-Af 37 L, BUN/Creatinine Ratio 14.6, Glucose 96, Calcium 9.5, Troponin I High Sens 389 H* 11/01/22 21:14: B-Natriuretic Peptide 102.0 H 11/01/22 21:14: PT 25.8 H, INR 2.4 11/01/22 21:14: Total Bilirubin 0.30, Direct Bilirubin 0.12, AST 16, ALT 15, Alkaline Phosphatase 88, Total Protein 6.8, Albumin 2.9 L, Globulin 3.9 11/01/22 23:32: Troponin I High Sens 340 H* 11/02/22 03:50: WBC 13.6 H, RBC 3.94 L, Hgb 11.4 L, Hct 36.1 L, MCV 91.6, MCH 28.9, MCHC 31.6 L, RDW Std Deviation 47.6 H, RDW Coeff of Loki 14.2, Plt Count 310, MPV 10.3, Immature Gran % (Auto) 0.700, Neut % (Auto) 84.5 H, Lymph % (Auto) 6.3 L, [place] % (Auto) 7.3, Eos % (Auto) 0.9, Baso % (Auto) 0.3, Absolute Neuts (auto) 11.5 H, Absolute Lymphs (auto) 0.86, Nucleated RBC % 0 11/02/22 03:50: Sodium 141, Potassium 3.3 L, Chloride 107, Carbon Dioxide 27.0, Anion Gap 7, BUN 19 H, Creatinine 1.09 H, Estim Creat Clear Calc 31.05, Est GFR (MDRD) Af Amer 63, Est GFR (MDRD) Non-Af 52 L, BUN/Creatinine Ratio 17.4, Glucose 84, Calcium 9.1, Magnesium 1.8, Total Bilirubin 0.40, AST 14 L, ALT 12 L , Alkaline Phosphatase 70, Total Protein 5.3 L, Albumin 2.3 L, Globulin 3.0, Albumin/Globulin Ratio 0.8 L, TSH 1.76 11/02/22 03:50: PT 28.0 H, INR 2.7 11/02/22 03:50: Phosphorus 3.0 11/02/22 03:50: Troponin I High Sens 287 H* Rhythm Strip Rhythm Strip: Sinus Rhythm Rate: 82 Ectopy: None Cardiology Labs/Tests 11/01/22 21:14: WBC 20.0 H, RBC 4.77, Hgb 13.4, Hct 43.3, MCV 90.8, MCH 28.1, MCHC 30.9 L, Plt Count 384, MPV 10.2, Immature Gran % (Auto) 0.900, Neut % (Auto) 86.8 H, Lymph % (Auto) 5.1 L, [place] % (Auto) 6.5, Eos % (Auto) 0.4, Baso % (Auto) 0.3, Absolute Neuts (auto) 17.4 H, Nucleated RBC % 0 11/01/22 21:14: Sodium 140, Potassium 3.6, Chloride 103, Carbon Dioxide 31.0, Anion Gap 6, BUN 21 H, Creatinine 1.44 H, Est GFR (MDRD) Af Amer 45 L, Est GFR (MDRD) Non-Af 37 L, BUN/Creatinine Ratio 14.6, Glucose 96, Calcium 9.5 11/01/22 21:14: B-Natriuretic Peptide 102.0 H 11/01/22 21:14: PT 25.8 H, INR 2.4 11/01/22 21:14: Total Bilirubin 0.30, Direct Bilirubin 0.12 11/02/22 03:50: WBC 13.6 H, RBC 3.94 L, Hgb 11.4 L, Hct 36.1 L, MCV 91.6, MCH 28.9, MCHC 31.6 L, Plt Count 310, MPV 10.3, Immature Gran % (Auto) 0.700, Neut % (Auto) 84.5 H, Lymph % (Auto) 6.3 L, [place] % (Auto) 7.3, Eos % (Auto) 0.9, Baso % (Auto) 0.3, Absolute Neuts (auto) 11.5 H, Nucleated RBC % 0 11/02/22 03:50: Sodium 141, Potassium 3.3 L, Chloride 107, Carbon Dioxide 27.0, Anion Gap 7, BUN 19 H, Creatinine 1.09 H, Est GFR (MDRD) Af Amer 63, Est GFR (MDRD) Non-Af 52 L, BUN/Creatinine Ratio 17.4, Glucose 84, Calcium 9.1, Magnesium 1.8, Total Bilirubin 0.40 11/02/22 03:50: PT 28.0 H, INR 2.7 11/02/22 03:50: Phosphorus 3.0 Rhythm: Normal sinus rhythm EKG: Normal sinus rhythm. No ischemic changes ECHO: Stress Test: Cardiac Cath: PCI: CT Surgery: Holter monitor: EPS: PPM: CXR: Chest CT Scan: Radiography Diagnostic Testing: Radiology Impression Chest X-Ray 11/01/22 21:11 IMPRESSION: Cardiomegaly without radiographic evidence of acute cardiopulmonary disease. Electronically Signed: Jean Mendiola MD at 21:50 EDT ,
[2022-11-02] MEDS: Ferrous Sulfate 325 MG Tablet PO ×2 (11:47→17:37)
[2022-11-02] MEDS: Ezetimibe 10 MG Tablet PO (11:48)
[2022-11-02] MEDS: buPROPion (XL) 150 MG TABLET.XL PO (11:48)
[2022-11-02] MEDS: Pantoprazole Sodium 40 MG Tablet PO ×2 (11:48→22:14)
[2022-11-02] MEDS: Metoprolol(XL)Succ 100 MG Tablet PO (11:53)
[2022-11-02] MEDS: Aspirin E.C. 81 MG Tablet PO (11:53)
[2022-11-02] MEDS: amLODIPine 2.5 MG Tablet PO (11:53)
[2022-11-02] MEDS: PARoxetine 10 MG Tablet PO ×2 (11:54→22:14)
--- NOTE | 2022-11-02 15:00 | CASEMGMT ---
CARLOS SINGER chart review: Patient was admitted 10/20-10/23/22 for hypoxia and suspected pneumonia. See CARLOS SINGER assessment from 10/21/22. [place] [facility] [place] 11/01/22 for chest pain and was admitted for NSTEMI. CARLOS SINGER in to discuss discharge planning with patient and . Patient and states she followed up with PCP on 10/26. Patient states she was taking medications as prescribed. Patient and denies needs at discharge. Patient to discharge home with family support and follow-up plans in place.
[2022-11-02] MEDS: Ensure Clear 120 ML Liquid PO ×2 (17:37→22:12)
[2022-11-02] MEDS: LORazepam 0.5 MG Tablet PO (19:58)
[2022-11-02] MEDS: Atorvastatin Calcium 80 MG Tablet PO (22:13)
[2022-11-02] MEDS: Montelukast 10 MG Tablet PO (22:13)
[2022-11-03] VITALS (8 sets, daily range): BP systolic 107–160; BP diastolic 65–76; PULSE 57–80; RESP 14–20; TEMP 36.4–36.8; O2SAT 90–97
[2022-11-03] MEDS: Albuterol 2.5 MG/3 ML VIAL.NEB. INHALATION (04:50)
[2022-11-03] MEDS: Acetaminophen 500 MG Tablet 1000 MG PO ×2 (06:05→14:46)
[2022-11-03] MEDS: LORazepam 0.5 MG Tablet PO (06:06)
[2022-11-03 06:31] LABS: Absolute Lymphocyte Count 0.71 X10^3/uL (0.83-4.51); Absolute Neutrophil Count 7.4 X10^3/uL (2.0-7.7); Basophil# 0.03 X10^3/uL; Basophil% 0.3 % (0-1); Eosinophil# 0.15 X10^3/uL; Eosinophils% 1.6 % (0-5); Hematocrit 38.9 % (37-47); Hemoglobin 11.6 g/dL (12.0-15.0); International Normalized Ratio 2.7; Lymphocyte # 0.71 X10^3/ul (0.83-4.51); Lymphocyte % 7.8 % (19-41); Mean Corp Hgb Conc 29.8 g/dL (32-36); Mean Corpuscular Hgb 27.8 pg (27.0-32.0); Mean Corpuscular Volume 93.1 fL (81-99); Mean Platelet Vol. 10.2 fl (6.2-12.0); Monocyte# 0.71 X10^3/uL; Monocyte% 7.8 % (0-10); NRBC Flagged by Analyzer 0 % (0-5); Neutrophil # 7.42 X10^3/uL (2.7-7.7); Neutrophil % 81.6 % (47-70); Platelet Count 323 K/mm3 (150-450); Prothrombin Time (Protime)PT. 27.9 SECONDS (11.7-14.9); RBC Distribution Width CV 14.2 % (11.6-14.6); RBC Distribution Width SD 48.6 fl (35.1-43.9); Red Blood Count 4.18 M/mm3 (4.2-5.4); White Blood Count 9.1 K/mm3 (4.4-11.0)
[2022-11-03 06:50] LABS: Anion Gap 3 (5-15); BUN 13 mg/dL (7-18); BUN/Creat Ratio 14.4 RATIO (10-20); Calcium,Total 9.2 mg/dL (8.5-10.1); Chloride 104 mmol/L (98-107); EST Glomerular Filtration Rate 64 mL/min (>60); Est Glom Filt Rate - Afr Amer 78 mL/min (>60); Glucose 87 mg/dL (74-106); Potassium 3.5 mmol/L (3.5-5.1); Sodium Level 140 mmol/L (136-145)
[2022-11-03] MEDS: Budesonide Respules 0.5 MG/2 ML AMPUL.NEB. INHALATION (07:01)
[2022-11-03] MEDS: Ipratropium/Albuterol Sulfate 3 ML AMPUL.NEB INHALATION ×2 (07:01→11:49)
[2022-11-03] MEDS: Aspirin E.C. 81 MG Tablet PO (08:35)
[2022-11-03] MEDS: Ferrous Sulfate 325 MG Tablet PO (08:35)
[2022-11-03] MEDS: Ensure Clear 120 ML Liquid PO (08:36)
[2022-11-03] MEDS: Amiodarone 200 MG Tablet 100 MG PO (08:36)
[2022-11-03] MEDS: Pantoprazole Sodium 40 MG Tablet PO (08:37)
[2022-11-03] MEDS: amLODIPine 2.5 MG Tablet PO (08:37)
[2022-11-03] MEDS: PARoxetine 10 MG Tablet PO (08:37)
[2022-11-03] MEDS: Metoprolol(XL)Succ 100 MG Tablet PO (08:37)
[2022-11-03] MEDS: buPROPion (XL) 150 MG TABLET.XL PO (08:38)
[2022-11-03] MEDS: guaiFENesin 1,200 MG Tablet 1200 MG PO (08:38)
[2022-11-03] MEDS: Ergocalciferol 1.25 MG (50, 000 UNIT) Capsule PO (08:38)
[2022-11-03] MEDS: Ezetimibe 10 MG Tablet PO (08:38)
--- NOTE | 2022-11-03 09:19 | PN.HOSP_ITS ---
Reason for Visit Reason for Visit: Diagnoses Elevated white blood cell count, unspecified (11/01/22) Essential (primary) hypertension (11/01/22) Non-ST elevation (NSTEMI) myocardial infarction (11/01/22) Paroxysmal atrial fibrillation (11/01/22) Chronic obstructive pulmonary disease, unspecified (11/01/22) Acute kidney failure, unspecified (11/01/22) Chest pain, unspecified (11/01/22) Presence of prosthetic heart valve (11/01/22) Objective Data Objective Data Vital Signs: Vital Signs Temp Pulse Resp BP Pulse Ox O2 Del Method O2 Flow Rate 97.6 F L 65 20 H 144/76 H 94 Nasal Cannula 2 11/03/22 04:22 11/03/22 08:37 11/03/22 07:01 11/03/22 04:22 11/03/22 07:01 11/03/22 07:01 11/03/22 07:01 Oxygen Flow Rate (L/min) 2 Oxygen Delivery Method Nasal Cannula Weight: 120 lb 13.013 oz Body Mass Index (BMI) 23.6 Intake & Output: Intake and Output for Last 24 Hours 11/01/22 11/02/22 11/03/22 23:59 23:59 23:59 Intake Total 1420 / 1620 600 / 600 Balance 1420 / 1620 600 / 600 Medical Nutrition Assessment Dietitian: Malnutrition Criteria Met Start: 11/02/22 14:45 Freq: Status: Active Protocol: Document 11/02/22 14:45 AG (Rec: 11/02/22 14:45 AG [id number]) Nutrition Malnutrition Evidence of Malnutrition Exists Yes Malnutrition (severe): Chronic Evidenced By Suboptimal Energy Intake ( Severe),Weight Loss (Severe) Clinical Problem Chronic Disease or Condition Related Malnutrition Etiology severe, chronic malnutrition related to inadequate energy intake d/t decreased appetite Signs/Symptoms as evidenced by unintentional 29.2#/19% wt loss x 6 months; estimated PO intake meeting < 75% of estimated energy needs > 3 months Status Active Problem Recommendation Dietitian Recommendations/Changes continue cardiac diet as tolerated; will adjust ONS to ensure clear 120mL 4x/day per pt preference. Will monitor PO intake and add additional ONS /adjust diet as indicated. Lab / Micro Data Result Diagrams: 11/03/22 05:45 11/03/22 05:45 Labs: Laboratory Results - last 24 hr 11/02/22 03:50: Troponin I High Sens 287 H* 11/03/22 05:45: WBC 9.1, RBC 4.18 L, Hgb 11.6 L, Hct 38.9, MCV 93.1, MCH 27.8, MCHC 29.8 L D, RDW Std Deviation 48.6 H, RDW Coeff of Loki 14.2, Plt Count 323, MPV 10.2, Immature Gran % (Auto) 0.900, Neut % (Auto) 81.6 H, Lymph % (Auto) 7.8 L, [place] % (Auto) 7.8, Eos % (Auto) 1.6, Baso % (Auto) 0.3, Absolute Neuts (auto) 7.4, Absolute Lymphs (auto) 0.71 L, Nucleated RBC % 0 11/03/22 05:45: PT 27.9 H, INR 2.7 11/03/22 05:45: Sodium 140, Potassium 3.5, Chloride 104, Carbon Dioxide 33.0 H, Anion Gap 3 L, BUN 13, Creatinine 0.90, Estim Creat Clear Calc 37.60, Est GFR (MDRD) Af Amer 78, Est GFR (MDRD) Non-Af 64, BUN/Creatinine Ratio 14.4, Glucose 87, Calcium 9.2 Rhythm Strip Rhythm Strip: Sinus Rhythm Rate: 82 Ectopy: None Physical Exam Narrative General: Alert, Oriented x3, Cooperative, No apparent distress HEENT: Atraumatic, PERRLA, EOMI, Normocephalic Oral: Moist Mucosa Neck: Supple, No JVD Lungs: Diminished, Normal air movement, No rhonchi, slight wheeze, No rales Cardiovascular: Regular rate, Regular Rhythm, Normal S1, Normal S2, No murmurs Abdomen: Soft, Non Tender, Non-Distended, No Hepato-splenomegaly Extremities: No edema, Capillary Refill Less than 3 Seconds Skin: No rashes, No breakdown Musculoskeletal: No Tenderness to Palpation of Joints or Extremities Neurological: Cranial nerves II-XII grossly intact, Motor Exam 5/5 strength throughout, Sensory exam intact to light touch and pain Psych/Mental Status: Normal Affect, Appropriate Assessment & Plan Assessment/Plan (1) NSTEMI, initial episode of care: (2) Chest pain: (3) Leukocytosis: (4) ROXANA (acute kidney injury): PLAN: Plan 1. Non-STEMI unclear type/paroxysmal A-fib/CAD/HTN/HLD/history of aortic valve replacement/ROXANA ? Troponin is elevated but trending downwards ? No significant EKG changes ? Unsure as to the plan as cardiology has not seen her yet ? She is on Coumadin for her A-fib and this was supratherapeutic so this was discontinued but unclear as to cardiology's plans and no heparin drip ? Echo is pending ? Can resume her home aspirin as well as metoprolol, statin, Zetia ? ROXANA has resolved, creatinine is back to almost baseline 2. Leukocytosis likely related to recent pneumonia and steroid usage 3. Asthma/bronchiectasis ? Stable ? Continue with her home inhalers 4. GERD ? Stable Did continue with PPI and Pepcid 5. Anxiety/depression/Lewy body dementia ? Stable continue with her home medications ? She is currently getting worked up for Lewy body dementia at [facility] [place] DVT: Therapeutic INR
--- NOTE | 2022-11-03 09:34 | DCINST_ITS ---
Discharge Instructions Diet Discharge Diet: 2000 mg Sodium Diet Activity Discharge Activity: Return to Normal Activity Weight Bearing Status: Weight bearing as tolerated Dressing / Incision Call your doctor if you observe: Fever of 101 or Higher, Coldness, Increased Pain, Numbness or Tingling, Change in Color, Inability to urinate, Inability to have a bowel movement, Using more than 1 pad per hour, Shortness of breath, Dizziness, Fainting spells, Swelling in the ankles, Chest pain, Prolonged hiccupping, Increased palpitations (irregular heartbeat) and Calf discomfort Follow Up Care When: IN 2 WEEKS Test Results: Test results from this visit will be discussed in further detail at your follow- up appointment, if applicable. Discharge Plan Admission Admit Date/Time: 11/01/22 22:58 Primary Reason for Your Visit: NSTEMI Attending Provider: Harry Pate Primary Care Provider: Harley Cornejo Consulting Providers: Evgeny Galicia ; Ivis Olvera ; Chu Liz Instructions Additional Instructions / Restrictions: Check PT/INR on 11/06/2022 and adjust her dose of warfarin accordingly Discharge Orders/Prescriptions Prescriptions: New metoprolol succinate 100 mg Tablet Extended Release 24 Hr 100 mg PO DAILY 30 Days Qty: 30 2RF amlodipine 2.5 mg Tablet 2.5 mg PO DAILY 30 Days Qty: 30 0RF nitroglycerin 0.4 mg Tablet, Sublingual 0.4 mg sublingual Q5M PRN (Reason: Cardiac/Chest Pain) 30 Days Qty: 30 0RF aspirin 81 mg Tablet,Delayed Release (Dr/Ec) 81 mg PO BREAKFAST 30 Days Qty: 30 2RF Continued cholecalciferol (vitamin D3) 50,000 unit capsule 50,000 unit PO FR albuterol sulfate 90 mcg/actuation HFA aerosol inhaler 2 puff inhalation Q4H PRN (Reason: shortness of breath or wheezing) Qty: 8.5 6RF Rx Instructions: administer with spacer ferrous sulfate 325 mg (65 mg iron) tablet 325 mg PO BID Label Comments: TAKE 1 TABLET BY MOUTH TWICE DAILY WITH MEALS guaifenesin 1,200 mg tablet extended release 12hr 1,200 mg PO Q12H Qty: 60 6RF pantoprazole 40 MG tablet 40 mg PO BID Label Comments: stomach lorazepam 0.5 MG tablet 0.5 mg PO BID PRN (Reason: ANXIETY) Label Comments: anxiety bupropion HCl 150 MG tablet extended release 24 hr 150 mg PO DAILY Label Comments: depression potassium chloride 20 MEQ tablet 20 meq PO DAILY montelukast 10 MG tablet 10 mg PO QHS furosemide 40 MG tablet 40 mg PO DAILY Qty: 0 0RF Hold Instructions: Resume on 10/25/22. acetaminophen 650 MG tablet extended release 650 mg PO Q6H PRN (Reason: BACK PAIN) famotidine 20 mg tablet 20 mg PO DAILY PRN (Reason: gerd) Label Comments: TAKE 1 TABLET BY MOUTH AT BEDTIME NEEDED paroxetine HCl 20 mg tablet 10 mg PO BID albuterol sulfate 2.5 MG/3 ML solution for nebulization 2.5 mg inhalation Q4H PRN Qty: 25 0RF Rx Instructions: Use q4 hours and PRN for wheezing amiodarone 200 mg tablet 100 mg PO DAILY ezetimibe [Zetia] 10 mg tablet 10 mg PO DAILY warfarin 2.5 mg Tablet 2.5 mg PO DAILY prednisone 20 mg tablet 40 mg PO DAILY 3 Days Qty: 6 0RF doxycycline monohydrate 100 mg capsule 100 mg PO BID 3 Days Qty: 7 0RF triamcinolone acetonide [Nasacort] 55 mcg aerosol,spray 1 spray INTRANASAL DAILY Qty: 16.9 6RF fluticasone furoate-vilanterol [Breo Ellipta] 200-25 mcg/dose blister with device 1 inh inhalation DAILY Qty: 60 11RF pravastatin 80 mg tablet 80 mg PO QHS Qty: 90 3RF Spiriva Respimat 2.5 mcg/actuation mist 2 puff inhalation QDAY Qty: 3 3RF Rx Instructions: administer at approximately the same time(s) each day Discontinued aspirin 81 MG tablet,chewable 162 mg PO DAILY Label Comments: blood thinner/heart metoprolol succinate 50 mg tablet extended release 24 hr See Rx Instructions .ROUTE .COMPLEX Rx Instructions: TAKE 1 TABLET BY MOUTH DAILY FOR BLOOD PRESSURE Referrals / Follow Up: Evgeny Galicia MD [Med Staff - Active Staff] - Within 1 Month Harley Cornejo MD [Primary Care Provider] - Disposition Disposition (needs filled in before D/C Order can be placed): Home, Self Care
--- NOTE | 2022-11-03 12:11 | PCM.PN.CARD ---
Subjective Subjective Denies any complaints today. Objective Data Vital Signs: Vital Signs Temp Pulse Resp BP Pulse Ox O2 Del Method O2 Flow Rate 98.2 F 65 14 160/75 H 92 Room Air 2 11/03/22 08:30 11/03/22 08:37 11/03/22 08:30 11/03/22 08:30 11/03/22 10:06 11/03/22 08:30 11/03/22 07:01 Oxygen Flow Rate (L/min) 2 Oxygen Delivery Method Room Air Weight: 120 lb 13.013 oz Body Mass Index (BMI) 23.6 Intake & Output: Intake and Output for Last 24 Hours 11/01/22 11/02/22 11/03/22 23:59 23:59 23:59 Intake Total 1420 / 1620 600 / 600 Balance 1420 / 1620 600 / 600 Lab / Micro Data Result Diagrams: 11/03/22 05:45 11/03/22 05:45 Labs: Laboratory Results - last 24 hr 11/03/22 05:45: WBC 9.1, RBC 4.18 L, Hgb 11.6 L, Hct 38.9, MCV 93.1, MCH 27.8, MCHC 29.8 L D, RDW Std Deviation 48.6 H, RDW Coeff of Loki 14.2, Plt Count 323, MPV 10.2, Immature Gran % (Auto) 0.900, Neut % (Auto) 81.6 H, Lymph % (Auto) 7.8 L, [place] % (Auto) 7.8, Eos % (Auto) 1.6, Baso % (Auto) 0.3, Absolute Neuts (auto) 7.4, Absolute Lymphs (auto) 0.71 L, Nucleated RBC % 0 11/03/22 05:45: PT 27.9 H, INR 2.7 11/03/22 05:45: Sodium 140, Potassium 3.5, Chloride 104, Carbon Dioxide 33.0 H, Anion Gap 3 L, BUN 13, Creatinine 0.90, Estim Creat Clear Calc 37.60, Est GFR (MDRD) Af Amer 78, Est GFR (MDRD) Non-Af 64, BUN/Creatinine Ratio 14.4, Glucose 87, Calcium 9.2 Rhythm Strip Rhythm Strip: Sinus Rhythm Rate: 82 Ectopy: None Cardiology Labs/Tests 11/03/22 05:45: WBC 9.1, RBC 4.18 L, Hgb 11.6 L, Hct 38.9, MCV 93.1, MCH 27.8, MCHC 29.8 L D, Plt Count 323, MPV 10.2, Immature Gran % (Auto) 0.900, Neut % (Auto) 81.6 H, Lymph % (Auto) 7.8 L, [place] % (Auto) 7.8, Eos % (Auto) 1.6, Baso % (Auto) 0.3, Absolute Neuts (auto) 7.4, Nucleated RBC % 0 11/03/22 05:45: PT 27.9 H, INR 2.7 11/03/22 05:45: Sodium 140, Potassium 3.5, Chloride 104, Carbon Dioxide 33.0 H, Anion Gap 3 L, BUN 13, Creatinine 0.90, Est GFR (MDRD) Af Amer 78, Est GFR (MDRD) Non-Af 64, BUN/Creatinine Ratio 14.4, Glucose 87, Calcium 9.2 Rhythm: EKG: ECHO: Stress Test: Cardiac Cath: PCI: CT Surgery: Holter monitor: EPS: PPM: CXR: Chest CT Scan: Physical Exam Narrative Comfortable, no acute distress. Mechanical heart sound audible. Chest examination reveals markedly decreased air entry bilaterally with scattered wheeze. Alert oriented x3. No ankle edema noted. Assessment & Plan Assessment/Plan (1) NSTEMI, initial episode of care: PLAN: Presently asymptomatic. Does not want any further cardiac work-up. Continue medical management. (2) PAF (paroxysmal atrial fibrillation): PLAN: Maintaining normal sinus rhythm on amiodarone. (3) History of mechanical aortic valve replacement: PLAN: Continue warfarin for anticoagulation. (4) Essential hypertension: PLAN: Controlled. (5) COPD (chronic obstructive pulmonary disease): PLAN: As per internal medicine.
--- NOTE | 2022-11-03 12:26 | DS.PCM_ITS ---
Providers Date of Admission: 11/01/22 Date of Discharge: 11/03/22 Primary Care Physician: Dr. Harley Cornejo MD Consultations 11/02/22 00:19 Consult: Cardiology Routine Consulting Provider: Evgeny Galicia Reason for Consult: Chest Pain EMERGENT Consult: No MD Notified: Yes Date Notified: 11/01/22 Time Notified: 23:03 Method of Notification: ED Physician Initiated Reason For Visit: NSTEMI Diagnosis Discharge Diagnosis (1) NSTEMI, initial episode of care: Status: Acute Code(s): I21.4 - Non-ST elevation (NSTEMI) myocardial infarction (2) PAF (paroxysmal atrial fibrillation): Status: Chronic Code(s): I48.0 - Paroxysmal atrial fibrillation (3) History of mechanical aortic valve replacement: Status: Chronic Code(s): Z95.2 - Presence of prosthetic heart valve (4) Essential hypertension: Status: Chronic Code(s): I10 - Essential (primary) hypertension (5) COPD (chronic obstructive pulmonary disease): Status: Chronic Code(s): J44.9 - Chronic obstructive pulmonary disease, unspecified Plan This 76-year-old female admitted for left-sided chest pressure with radiation to left shoulder started about 5 PM on day of admission. She was recently discharged on 10/23 after a viral pneumonia and was discharged on doxycycline which she completed. Serial troponins were high. Patient was admitted with a diagnosis of non-STEMI. 1. Non-STEMI with history of prior coronary artery disease: Patient was admitted in PCU. Twelve-lead EKG did not show significant ST-T changes. Patient was seen by video journalist. The patient refused for any cardiac intervention or cardiac cath. Patient medications were optimized with baby aspirin and metoprolol succinate and low-dose amlodipine. Patient last echo was in May 2022 reported EF 60% with normal LV systolic function. LA moderately enlarged. Mild MR. Stable appearing mechanical aortic valve apparatus. Mild aortic stenosis. 2. Paroxysmal A-fib: Patient is on warfarin. INR therapeutic 3. Mechanical aortic valve replacement on warfarin. Rest as mentioned above. 4. ROXANA resolved. 5. Hypertension and dyslipidemia: Patient on lisinopril and low-dose amlodipine. On a statin 6. Mild leukocytosis likely related to recent pneumonia and steroid usage: Leukocytosis resolved. She completed doxycycline. 7.. Asthma/bronchiectasis ? Stable ? Continue with her home inhalers 8. GERD ? Stable On PPI and Pepcid 9 anxiety/depression/Lewy body dementia: Home medication reconciliation ? She is currently getting worked up for Lewy body dementia at [facility] DVT: Therapeutic INR Prescriptions for metoprolol succinate, baby aspirin, low-dose amlodipine 2.5 mg daily and sublingual as needed nitroglycerin tablets sent to the patient's preferred pharmacy. Discharge medication reconciliation done. Discharge follow-up instructions completed. Discharge process discussed with the patient and all questions were answered to patient's satisfaction. Total time spent, exact 35 minutes on discharge meds reconciliation, examination, coordination of care with nurses and ancillary staff, review of imaging and blood test and discussion with the patient on follow-up instructions. Medications at Discharge Home Medications pantoprazole 40 mg tablet,delayed release 40 mg PO BID ACID REFLUX 01/14/15 bupropion HCl 150 mg 24 hr tablet, extended release 150 mg PO DAILY DEPRESSION 11/15/15 montelukast 10 mg tablet 10 mg PO QHS ALLERGIES 05/03/17 potassium chloride 20 mEq tablet,extended release(part/cryst) 20 meq PO DAILY SUPPLEMENT 05/03/17 lorazepam 0.5 mg tablet 0.5 mg PO BID PRN ANXIETY 09/04/17 furosemide 40 mg tablet 40 mg PO DAILY WATER PILL ##0 12/06/17 cholecalciferol (vitamin D3) 1,250 mcg (50,000 unit) capsule 50,000 unit PO FR SUPPLEMENT 06/16/19 acetaminophen 650 mg tablet,extended release 650 mg PO Q6H PRN BACK PAIN 07/07/20 albuterol sulfate 2.5 mg/3 mL (0.083 %) solution for nebulization 2.5 mg (3 mL) inhalation Q4H PRN #25 vials 05/21/21 triamcinolone acetonide 55 mcg nasal spray aerosol (Nasacort) 1 spray intranasal DAILY #16.9 mL 06/10/21 albuterol sulfate 90 mcg/actuation aerosol inhaler 2 puff inhalation Q4H PRN shortness of breath or wheezing #8.5 grams 10/04/21 famotidine 20 mg tablet 20 mg PO DAILY PRN gerd 11/29/21 ferrous sulfate 325 mg (65 mg iron) tablet 325 mg PO BID Check with primary doctor 05/03/22 paroxetine HCl 20 mg tablet 10 mg PO BID Check with primary doctor 11/29/21 guaifenesin 1,200 mg tablet, extended release 12 hr 1,200 mg PO Q12H #60 tabs 04/04/22 fluticasone furoate 200 mcg-vilanterol 25 mcg/dose inhalation powder (Breo Ellipta) 1 inh inhalation DAILY #60 ea 08/07/22 pravastatin 80 mg tablet 80 mg PO QHS CHOLESTEROL LOWERING #90 tabs 09/25/22 tiotropium bromide 2.5 mcg/actuation mist for inhalation (Spiriva Respimat) 2 puff inhalation QDAY #3 ea 10/17/22 amiodarone 200 mg tablet 100 mg PO DAILY Check with primary doctor 10/20/22 ezetimibe 10 mg tablet (Zetia) 10 mg PO DAILY Check with primary doctor 10/20/22 warfarin 2.5 mg tablet 2.5 mg PO DAILY Check with primary doctor 10/20/22 prednisone 20 mg tablet 40 mg PO DAILY 3 days #6 TABLETS 10/23/22 amlodipine 2.5 mg tablet 2.5 mg PO DAILY 30 days #30 tabs 11/03/22 aspirin 81 mg tablet,delayed release 81 mg PO BREAKFAST 30 days #30 tabs 11/03/22 metoprolol succinate 100 mg tablet,extended release 24 hr 100 mg PO DAILY 30 days #30 tabs 11/03/22 nitroglycerin 0.4 mg sublingual tablet 0.4 mg sublingual Q5M PRN Cardiac/Chest Pain 30 days #30 tabs 11/03/22 Physical Exam Narrative Seen and examined. Patient wants to go home. Does not have shortness of breath chest pain or tightness. Discussed with the video journalist. Physical exam General: Alert, Oriented x3, Cooperative HEENT: Atraumatic, PERRLA, EOMI, Normocephalic Oral oral mucosa moist.: No Gingival or Mucosal Lesions/ Ulcerations Neck: Supple, No JVD, Negative Carotid Bruits Lungs: Air entry diminished in bilateral lung bases. No crepitation/rhonchi Cardiovascular: Regular rate, Regular Rhythm, Normal S1, Normal S2, mechanical aortic valve click present. No diastolic murmur. Abdomen: Bowel Sounds Present, Soft, Non Tender, Non-Distended : No renal angle tenderness. No suprapubic tenderness. Extremities: No edema, Capillary Refill Less than 3 Seconds Skin: No rashes, No breakdown Musculoskeletal: No Tenderness to Palpation of Joints or Extremities, ROM intact. Neurological: Cranial nerves II-XII grossly intact, DTR 2+/4 and Symmetrical, Neuro grossly intact Psych/Mental Status: Normal Affect, Appropriate. Medical Records Data Medical Nutrition Assessment Dietitian: Malnutrition Criteria Met Start: 11/02/22 14:45 Freq: Status: Active Protocol: Document 11/02/22 14:45 AG (Rec: 11/02/22 14:45 AG [id number]) Nutrition Malnutrition Evidence of Malnutrition Exists Yes Malnutrition (severe): Chronic Evidenced By Suboptimal Energy Intake ( Severe),Weight Loss (Severe) Clinical Problem Chronic Disease or Condition Related Malnutrition Etiology severe, chronic malnutrition related to inadequate energy intake d/t decreased appetite Signs/Symptoms as evidenced by unintentional 29.2#/19% wt loss x 6 months; estimated PO intake meeting < 75% of estimated energy needs > 3 months Status Active Problem Recommendation Dietitian Recommendations/Changes continue cardiac diet as tolerated; will adjust ONS to ensure clear 120mL 4x/day per pt preference. Will monitor PO intake and add additional ONS /adjust diet as indicated. Weight / BMI Weight Weight: 120 lb 13.013 oz Body Mass Index (BMI) 23.6 ABG / Lab / Microbiology Data Result Diagrams: 11/03/22 05:45 11/03/22 05:45 Laboratory: Laboratory Results - last 24 hr 11/03/22 05:45: WBC 9.1, RBC 4.18 L, Hgb 11.6 L, Hct 38.9, MCV 93.1, MCH 27.8, MCHC 29.8 L D, RDW Std Deviation 48.6 H, RDW Coeff of Loki 14.2, Plt Count 323, MPV 10.2, Immature Gran % (Auto) 0.900, Neut % (Auto) 81.6 H, Lymph % (Auto) 7.8 L, [place] % (Auto) 7.8, Eos % (Auto) 1.6, Baso % (Auto) 0.3, Absolute Neuts (auto) 7.4, Absolute Lymphs (auto) 0.71 L, Nucleated RBC % 0 11/03/22 05:45: PT 27.9 H, INR 2.7 11/03/22 05:45: Sodium 140, Potassium 3.5, Chloride 104, Carbon Dioxide 33.0 H, Anion Gap 3 L, BUN 13, Creatinine 0.90, Estim Creat Clear Calc 37.60, Est GFR (MDRD) Af Amer 78, Est GFR (MDRD) Non-Af 64, BUN/Creatinine Ratio 14.4, Glucose 87, Calcium 9.2 D/C Instructions Discharge Diet: 2000 mg Sodium Diet Weight Bearing Status: Weight bearing as tolerated Call your doctor if you observe: Fever of 101 or Higher, Coldness, Increased Pain, Numbness or Tingling, Change in Color, Inability to urinate, Inability to have a bowel movement, Using more than 1 pad per hour, Shortness of breath, Di zziness, Fainting spells, Swelling in the ankles, Chest pain, Prolonged hiccupping, Increased palpitations (irregular heartbeat) and Calf discomfort When: IN 2 WEEKS Meaningful Use Info Meaningful Use Diagnoses (Choose all that apply): None applicable and AMI AMI/Post PCI/Angioplasty Aspirin given w/in 24hrs of arrival?: Yes ASA at discharge?: Yes Statins at discharge?: Yes Michael/ARB at discharge?: Yes Beta Sandra at discharge?: Yes Done w/ Acute VT measure.: Yes Discharge Plan Admission Admit Date/Time: 11/01/22 22:58 Primary Reason for Your Visit: NSTEMI Attending Provider: Harry Pate Primary Care Provider: Harley Cornejo Consulting Providers: Evgeny Galicia ; Ivis Olvera ; Chu Liz Instructions Additional Instructions / Restrictions: Check PT/INR on 11/06/2022 and adjust her dose of warfarin accordingly Discharge Orders/Prescriptions Prescriptions: New metoprolol succinate 100 mg Tablet Extended Release 24 Hr 100 mg PO DAILY 30 Days Qty: 30 2RF amlodipine 2.5 mg Tablet 2.5 mg PO DAILY 30 Days Qty: 30 0RF nitroglycerin 0.4 mg Tablet, Sublingual 0.4 mg sublingual Q5M PRN (Reason: Cardiac/Chest Pain) 30 Days Qty: 30 0RF aspirin 81 mg Tablet,Delayed Release (Dr/Ec) 81 mg PO BREAKFAST 30 Days Qty: 30 2RF Continued cholecalciferol (vitamin D3) 50,000 unit capsule 50,000 unit PO FR albuterol sulfate 90 mcg/actuation HFA aerosol inhaler 2 puff inhalation Q4H PRN (Reason: shortness of breath or wheezing) Qty: 8.5 6RF Rx Instructions: administer with spacer ferrous sulfate 325 mg (65 mg iron) tablet 325 mg PO BID Label Comments: TAKE 1 TABLET BY MOUTH TWICE DAILY WITH MEALS guaifenesin 1,200 mg tablet extended release 12hr 1,200 mg PO Q12H Qty: 60 6RF pantoprazole 40 MG tablet 40 mg PO BID Label Comments: stomach lorazepam 0.5 MG tablet 0.5 mg PO BID PRN (Reason: ANXIETY) Label Comments: anxiety bupropion HCl 150 MG tablet extended release 24 hr 150 mg PO DAILY Label Comments: depression potassium chloride 20 MEQ tablet 20 meq PO DAILY montelukast 10 MG tablet 10 mg PO QHS furosemide 40 MG tablet 40 mg PO DAILY Qty: 0 0RF Hold Instructions: Resume on 10/25/22. acetaminophen 650 MG tablet extended release 650 mg PO Q6H PRN (Reason: BACK PAIN) famotidine 20 mg tablet 20 mg PO DAILY PRN (Reason: gerd) Label Comments: TAKE 1 TABLET BY MOUTH AT BEDTIME NEEDED paroxetine HCl 20 mg tablet 10 mg PO BID albuterol sulfate 2.5 MG/3 ML solution for nebulization 2.5 mg inhalation Q4H PRN Qty: 25 0RF Rx Instructions: Use q4 hours and PRN for wheezing amiodarone 200 mg tablet 100 mg PO DAILY ezetimibe [Zetia] 10 mg tablet 10 mg PO DAILY warfarin 2.5 mg Tablet 2.5 mg PO DAILY prednisone 20 mg tablet 40 mg PO DAILY 3 Days Qty: 6 0RF triamcinolone acetonide [Nasacort] 55 mcg aerosol,spray 1 spray INTRANASAL DAILY Qty: 16.9 6RF fluticasone furoate-vilanterol [Breo Ellipta] 200-25 mcg/dose blister with device 1 inh inhalation DAILY Qty: 60 11RF pravastatin 80 mg tablet 80 mg PO QHS Qty: 90 3RF Spiriva Respimat 2.5 mcg/actuation mist 2 puff inhalation QDAY Qty: 3 3RF Rx Instructions: administer at approximately the same time(s) each day Discontinued aspirin 81 MG tablet,chewable 162 mg PO DAILY Label Comments: blood thinner/heart metoprolol succinate 50 mg tablet extended release 24 hr See Rx Instructions .ROUTE .COMPLEX Rx Instructions: TAKE 1 TABLET BY MOUTH DAILY FOR BLOOD PRESSURE doxycycline monohydrate 100 mg capsule 100 mg PO BID 3 Days Qty: 7 0RF Referrals / Follow Up: Evgeny Galicia MD [Med Staff - Active Staff] - Within 1 Month Harley Cornejo MD [Primary Care Provider] - Disposition Disposition (needs filled in before D/C Order can be placed): Home, Self Care Charges/Coding Visit Charges Inpatient E&M: 52139 Disch Hosp >30min
== END 2022-11-03 15:01 | disposition home or self-care (01) | DRG 281 ==
LOC: ED 23:09 → PCU 23:53
PROVIDERS: Family Medicine; Admitting Provider Internal Medicine; Emergency Provider Emergency Medicine; PCP Family Medicine; Visit Provider Internal Medicine
DX: I21.4 Non-ST elevation (NSTEMI) myocardial infarction (principal); I13.0 Hypertensive heart and chronic kidney disease with heart failure and stage 1 through stage 4 chronic kidney disease, or unspecified chronic kidney disease; N17.9 Acute kidney failure, unspecified; I50.32 Chronic diastolic (congestive) heart failure; G31.83 Neurocognitive disorder with Lewy bodies; I48.0 Paroxysmal atrial fibrillation; J44.9 Chronic obstructive pulmonary disease, unspecified; E55.9 Vitamin D deficiency, unspecified; E78.5 Hyperlipidemia, unspecified; K21.9 Gastro-esophageal reflux disease without esophagitis; N18.2 Chronic kidney disease, stage 2 (mild); J45.909 Unspecified asthma, uncomplicated; I25.10 Atherosclerotic heart disease of native coronary artery without angina pectoris; I08.0 Rheumatic disorders of both mitral and aortic valves; Z79.891 Long term (current) use of opiate analgesic; Z79.51 Long term (current) use of inhaled steroids; F32.A Depression, unspecified; Z66 Do not resuscitate; Z79.01 Long term (current) use of anticoagulants; R09.02 Hypoxemia; Z79.82 Long term (current) use of aspirin; Z95.2 Presence of prosthetic heart valve
CPT/HCPCS: 36415; 71045; 80048; 80053; 80076; 83735; 83880; 84100; 84443; 84484; 85025; 85610; 93005; 94640; 94668; 97802; 99252; 99285; A4216; G0463

== ENCOUNTER 2022-11-13 16:25 | Emergency (ER) | payer MEDICARE, OTHER, SELFPAY ==
[2022-11-13 16:27] VITALS: BP 160/100; PULSE 80; RESP 22; TEMP 37.3; O2SAT 87
[2022-11-13 16:31] VITALS: O2SAT 92
--- NOTE | 2022-11-13 16:47 | EKG12_ITS ---
Test Reason : CP Blood Pressure : / mmHG Vent. Rate : 077 BPM Atrial Rate : 000 BPM P-R Int : 000 ms QRS Dur : 076 ms QT Int : 392 ms P-R-T Axes : 000 -01 037 degrees QTc Int : 443 ms Accelerated Junctional rhythm Abnormal ECG Confirmed by ANDRADE MONIQUE ([id number]), writer editor HILDA WINTER ([id number]) on 11/15/2022 1:17:10 PM Referred By: Confirmed By:ANDRADE MONIQUE
--- NOTE | 2022-11-13 16:47 | EX.ED.DYSGE1 ---
HPI <NATALIE Cooper - Last Filed: 11/13/22 18:09> History of Present Illness Chief Complaint: General Illness Narrative Narrative: 76-year-old female with PMH of A-fib on Coumadin, CAD, mechanical aortic valve, COPD, Lewy body dementia states she was just at the [facility] getting blood work and after they finished she felt sweaty, short of breath, and looked pale. She has been on 2 to 3 L of O2 since she was discharged a week ago for pneumonia but her family member noticed that the portable concentrator was not running at her appointment. She is having some chest pressure but then tells me this has been ongoing because she still has a cough for her pneumonia. 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 Nonrheumatic aortic valve regurgitation Nonspecific chest pain Obesity Palpitations Severe sepsis Syncope and collapse Home Medications pantoprazole 40 mg tablet,delayed release 40 mg PO BID ACID REFLUX 01/14/15 [History Last Taken 07/07/20] bupropion HCl 150 mg 24 hr tablet, extended release 150 mg PO DAILY DEPRESSION 11/15/15 [History Last Taken 07/07/20] montelukast 10 mg tablet 10 mg PO QHS ALLERGIES 05/03/17 [History Last Taken 07/06/20] potassium chloride 20 mEq tablet,extended release(part/cryst) 20 meq PO DAILY SUPPLEMENT 05/03/17 [History Last Taken 07/06/20] lorazepam 0.5 mg tablet 0.5 mg PO BID PRN ANXIETY 09/04/17 [History Last Taken 07/07/20] furosemide 40 mg tablet 40 mg PO DAILY WATER PILL ##0 12/06/17 [Rx Last Taken 07/06/20] cholecalciferol (vitamin D3) 1,250 mcg (50,000 unit) capsule 50,000 unit PO FR SUPPLEMENT 06/16/19 [History Last Taken 06/25/20] acetaminophen 650 mg tablet,extended release 650 mg PO Q6H PRN BACK PAIN 07/07/20 [History Last Taken 07/07/20] albuterol sulfate 2.5 mg/3 mL (0.083 %) solution for nebulization 2.5 mg (3 mL) inhalation Q4H PRN #25 vials 05/21/21 [Rx Last Taken Unknown] triamcinolone acetonide 55 mcg nasal spray aerosol (Nasacort) 1 spray intranasal DAILY #16.9 mL 06/10/21 [Rx Last Taken Unknown] albuterol sulfate 90 mcg/actuation aerosol inhaler 2 puff inhalation Q4H PRN shortness of breath or wheezing #8.5 grams 10/04/21 [Rx Last Taken Unknown] famotidine 20 mg tablet 20 mg PO DAILY PRN gerd 11/29/21 [History Last Taken Unknown] ferrous sulfate 325 mg (65 mg iron) tablet 325 mg PO BID Check with primary doctor 11/29/21 [History Last Taken Unknown] paroxetine HCl 20 mg tablet 10 mg PO BID Check with primary doctor 11/29/21 [History Last Taken Unknown] fluticasone furoate 200 mcg-vilanterol 25 mcg/dose inhalation powder (Breo Ellipta) 1 inh inhalation DAILY #60 ea 08/07/22 [Rx Last Taken Unknown] pravastatin 80 mg tablet 80 mg PO QHS CHOLESTEROL LOWERING #90 tabs 09/25/22 [Rx Last Taken Unknown] tiotropium bromide 2.5 mcg/actuation mist for inhalation (Spiriva Respimat) 2 puff inhalation QDAY #3 ea 10/17/22 [Rx Last Taken Unknown] amiodarone 200 mg tablet 100 mg PO DAILY Check with primary doctor 10/20/22 [History Last Taken Unknown] ezetimibe 10 mg tablet (Zetia) 10 mg PO DAILY Check with primary doctor 10/20/22 [History Last Taken Unknown] warfarin 2.5 mg tablet 2.5 mg PO DAILY Check with primary doctor 10/20/22 [History Last Taken Unknown] prednisone 20 mg tablet 40 mg PO DAILY 3 days #6 TABLETS 10/23/22 [Rx Last Taken Unknown] amlodipine 2.5 mg tablet 2.5 mg PO DAILY 30 days #30 tabs 04/07/23 [Rx Last Taken Unknown] aspirin 81 mg tablet,delayed release 81 mg PO BREAKFAST 30 days #30 tabs 11/03/22 [Rx Last Taken Unknown] metoprolol succinate 100 mg tablet,extended release 24 hr 100 mg PO DAILY 30 days #30 tabs 11/03/22 [Rx Last Taken Unknown] nitroglycerin 0.4 mg sublingual tablet 0.4 mg sublingual Q5M PRN Cardiac/Chest Pain 30 days #30 tabs 11/03/22 [Rx Last Taken Unknown] guaifenesin 1,200 mg tablet, extended release 12 hr 1,200 mg PO Q12H #60 tabs 11/08/22 [Rx Last Taken Unknown] nystatin 100,000 unit/mL oral suspension 5 ml mucous membrane TID #250 mL 11/08/22 [Rx Last Taken Unknown] Allergy/AdvReac Type Severity Reaction Status Date / Time donepezil Allergy Severe shortness Verified 11/13/22 16:31 of breath risperidone Allergy Severe Confusion Verified 11/13/22 16:31 Sulfa (Sulfonamide Allergy Swelling Verified 11/13/22 16:31 Antibiotics) celecoxib [From Celebrex] AdvReac Severe Swelling Verified 11/13/22 16:31 dextromethorphan AdvReac Severe hallucinati Verified 11/13/22 16:31 [From Delsym] on adhesive AdvReac blisters Verified 11/13/22 16:31 codeine AdvReac Itching Verified 11/13/22 16:31 levofloxacin [From Levaquin] AdvReac pain in Verified 11/13/22 16:31 legs and swelling lisinopril AdvReac cough Verified 11/13/22 16:31 oxycodone [Oxycodone] AdvReac Itching Verified 11/13/22 16:31 oxycodone HCl [From Percocet] AdvReac Itching Verified 11/13/22 16:31 Penicillins AdvReac heart Verified 11/13/22 16:31 palpitations prochlorperazine edisylate AdvReac Low blood Verified 11/13/22 16:31 [From Compazine] pressure prochlorperazine maleate AdvReac Low blood Verified 11/13/22 16:31 [From Compazine] pressure tramadol HCl [From Ultram] AdvReac Itching Verified 11/13/22 16:31 Family History Mother Arthritis CAD (coronary artery disease) Father Arthritis High cholesterol CAD (coronary artery disease) Sister Diabetes High cholesterol Hypertension Brother Diabetes High cholesterol Hypertension Surgical History H/O aortic valve replacement History of back surgery History of foot surgery History of hysterectomy History of mechanical aortic valve replacement (~10/07/13) History of sinus surgery Social History household members: spouse number of children: 2 Smoking Status: Never smoker alcohol intake: never substance use type: does not use caffeine: Yes Type: coffee what type of physical activity do you participate in: none seatbelt use: always do you feel safe at home: Yes ROS <NATALIE Cooper - Last Filed: 11/13/22 18:09> ROS ED ROS Narrative Constitutional: Negative for fever, chills, malaise. CVS: Positive for chest pain. Negative for syncope. Respiratory: Positive for shortness of breath, cough. GI: Negative for abdominal pain, nausea, vomiting. EXAM <NATALIE Cooper - Last Filed: 11/13/22 18:09> Physical Exam Narrative Exam Narrative: CONST: Patient appears chronically ill, sitting in no acute distress. EYES: Normal inspection. ENT: Normal inspection, moist mucous membranes. NECK: Normal inspection. RESP: No respiratory distress, mild expiratory wheeze/rhonchi. CVS: Regular rate and rhythm, no murmur, no gallop. ABD: Soft and nontender, no guarding or rebound, nondistended. SKIN: Color normal, no rash, warm, dry, intact. EXTREMITIES: Normal appearance, no pedal edema. NEURO: Oriented x3. PSYCH: Normal affect. Const Vital Signs: 11/13/22 16:27 11/13/22 16:31 Temperature 99.1 F Temperature Source Oral Pulse Rate 80 Respiratory Rate 22 H Blood Pressure 160/100 H Blood Pressure Mean 120 Pulse Ox 87 92 Oxygen Delivery Method Room Air Nasal Cannula Oxygen Flow Rate (L/min) 2 <Dr. Chaz Grant MD - Last Filed: 11/13/22 17:05> Physical Exam Const Vital Signs: 11/13/22 16:27 11/13/22 16:31 Temperature 99.1 F Temperature Source Oral Pulse Rate 80 Respiratory Rate 22 H Blood Pressure 160/100 H Blood Pressure Mean 120 Pulse Ox 87 92 Oxygen Delivery Method Room Air Nasal Cannula Oxygen Flow Rate (L/min) 2 MDM <NATALIE Cooper - Last Filed: 11/13/22 18:09> [facility] Narrative Medical decision making narrative: History gathered from: Patient and family member at bedside Patient episode of lightheadedness and not feeling well after blood draw. No syncope. Here she appears well and nontoxic. She was hypertensive, noted to be 87% on room air but her concentrator was not turned on. She supposed to be on 2 L and once this was turned on her saturations are improving to 95% or above. Her exam overall is unremarkable. Cardiac work-up is negative. EKG is nonischemic and troponin is 22. CBC, BMP unremarkable. Her INR is subtherapeutic at 1.7 (goal 2.5?3.5 for prosthetic valve). Patient states she takes Coumadin 2.5 mg every day. She does have 4.5 mg tablets on hand I recommend she take that tonight and call her prescribing physician in the morning for further instructions. Do not think she has an acute PE. CXR shows resolution of pneumonia no other acute findings. Patient has been asymptomatic here and will be discharged. External records reviewed: Cardiology progress note on 11/03/2022 noted she had an NSTEMI but refused any cardiac work-up and was managed medically. Differential: Vasovagal, ACS, electrolyte abnormality I have personally performed a face to face assessment of the patient and have reviewed the ALEXANDRE Note. I performed a substantive portion of the visit including all aspects of the following. My abrams findings include: History is 76-year-old female that I am evaluate with physician acute care assistant. Patient had an episode where she was not feeling well after having her blood drawn. She had a recent hospitalization within the last 2 months for pneumonia. She is on Coumadin reportedly due to a history of bioprosthetic valve. She denies any recent illness. Said she had blood drawn many times and that that was not the issue. She denies any nausea, vomiting or diarrhea. Denies any fever or dysuria. Exam is [well-appearing 76-year-old female. Vital signs stable afebrile. Family member present in the room. H EENT exam unremarkable atraumatic. Moist with members. Neck nontender no lymphadenopathy. Lungs clear to auscultation. Heart regular rhythm rate in the 70s to 80s. Prosthetic valve click. Chest wall nontender. Well-healed prior sternotomy. Abdomen soft nontender. Normal bowel sounds no peritoneal signs. No distention or hernia. No right upper or lower abdominal tenderness. Moving all 4 extremities. Nontender no edema. Neurologically she is awake and alert with no focal motor deficits. Answering questions and following commands.] Medical Decision Making [patient had an episode where she felt faint. Clinically looks well. Has a benign exam. Will undergo a cardiac work-up.] Other additions or changes: [None] Lab Data Attestation: I reviewed the patient's lab results. Labs: Laboratory Results - last 24 hr 11/13/22 11/13/22 11/13/22 17:10 17:10 17:10 WBC 10.7 RBC 4.48 Hgb 12.6 Hct 41.3 MCV 92.2 MCH 28.1 MCHC 30.5 L RDW Std Deviation 46.8 H RDW Coeff of Loki 13.8 Plt Count 353 MPV 9.9 Immature Gran % (Auto) 0.700 Neut % (Auto) 84.0 H Lymph % (Auto) 7.0 L [place] % (Auto) 6.6 Eos % (Auto) 1.3 Baso % (Auto) 0.4 Absolute Neuts (auto) 9.0 H Absolute Lymphs (auto) 0.75 L Nucleated RBC % 0 PT 19.4 H INR 1.7 Sodium 137 Potassium 3.6 Chloride 103 Carbon Dioxide 34.0 H Anion Gap 0 L BUN 14 Creatinine 0.80 Est GFR (MDRD) Af Amer 89 Est GFR (MDRD) Non-Af 73 BUN/Creatinine Ratio 17.4 Glucose 92 Calcium 9.9 Troponin I High Sens 22 Radiography Diagnostic Testing: Clinical Impression(s) from Imaging Studies Chest X-Ray 11/13/22 17:20 IMPRESSION: No change. Left lower lobe subsegmental atelectasis. Small bilateral pleural effusions. Compression fracture mid thoracic spine age indeterminate. Electronically Signed: Gabe Yanes MD at 17:41 EDT , ED attending interpretation of 2 view chest x-ray shows normal heart size, small bilateral pleural effusions, no acute infiltrate. <Dr. Chaz Grant MD - Last Filed: 11/13/22 17:05> [facility] MDM Narrative Medical decision making narrative: External records reviewed: Cardiology progress note on 11/03/2022 noted she had an NSTEMI but refused any cardiac work-up and was managed medically. I have personally performed a face to face assessment of the patient and have reviewed the ALEXANDRE Note. I performed a substantive portion of the visit including all aspects of the following. My abrams findings include: History is 76-year-old female that I am evaluate with physician acute care assistant. Patient had an episode where she was not feeling well after having her blood drawn. She had a recent hospitalization within the last 2 months for pneumonia. She is on Coumadin reportedly due to a history of bioprosthetic valve. She denies any recent illness. Said she had blood drawn many times and that that was not the issue. She denies any nausea, vomiting or diarrhea. Denies any fever or dysuria. Exam is [well-appearing 76-year-old female. Vital signs stable afebrile. Family member present in the room. H EENT exam unremarkable atraumatic. Moist with members. Neck nontender no lymphadenopathy. Lungs clear to auscultation. Heart regular rhythm rate in the 70s to 80s. Prosthetic valve click. Chest wall nontender. Well-healed prior sternotomy. Abdomen soft nontender. Normal bowel sounds no peritoneal signs. No distention or hernia. No right upper or lower abdominal tenderness. Moving all 4 extremities. Nontender no edema. Neurologically she is awake and alert with no focal motor deficits. Answering questions and following commands.] Medical Decision Making [patient had an episode where she felt faint. Clinically looks well. Has a benign exam. Will undergo a cardiac work-up.] Other additions or changes: [None] Lab Data Labs: Laboratory Results - last 24 hr 11/13/22 11/13/22 11/13/22 17:10 17:10 17:10 WBC 10.7 RBC 4.48 Hgb 12.6 Hct 41.3 MCV 92.2 MCH 28.1 MCHC 30.5 L RDW Std Deviation 46.8 H RDW Coeff of Loki 13.8 Plt Count 353 MPV 9.9 Immature Gran % (Auto) 0.700 Neut % (Auto) 84.0 H Lymph % (Auto) 7.0 L [place] % (Auto) 6.6 Eos % (Auto) 1.3 Baso % (Auto) 0.4 Absolute Neuts (auto) 9.0 H Absolute Lymphs (auto) 0.75 L Nucleated RBC % 0 PT 19.4 H INR 1.7 Sodium 137 Potassium 3.6 Chloride 103 Carbon Dioxide 34.0 H Anion Gap 0 L BUN 14 Creatinine 0.80 Est GFR (MDRD) Af Amer 89 Est GFR (MDRD) Non-Af 73 BUN/Creatinine Ratio 17.4 Glucose 92 Calcium 9.9 Troponin I High Sens 22 Radiography Diagnostic Testing: Clinical Impression(s) from Imaging Studies Chest X-Ray 11/13/22 17:20 IMPRESSION: No change. Left lower lobe subsegmental atelectasis. Small bilateral pleural effusions. Compression fracture mid thoracic spine age indeterminate. Electronically Signed: Gabe Yanes MD at 17:41 EDT Reading Location ID and State: [facility] / [place] , Service support , Discharge Plan Triage Chief Complaint: General Illness ED Midlevel Provider: Keily Busch ED Provider: Chaz Grant Dx/Rx/DC Orders Clinical Impression: Lightheaded, Subtherapeutic international normalized ratio (INR) Instructions: ED Dizziness, Uncertain Cause Prescriptions: No Action cholecalciferol (vitamin D3) 50,000 unit capsule 50,000 unit PO FR albuterol sulfate 90 mcg/actuation HFA aerosol inhaler 2 puff inhalation Q4H PRN (Reason: shortness of breath or wheezing) Qty: 8.5 6RF Rx Instructions: administer with spacer ferrous sulfate 325 mg (65 mg iron) tablet 325 mg PO BID Label Comments: TAKE 1 TABLET BY MOUTH TWICE DAILY WITH MEALS nystatin 100,000 unit/mL suspension 5 ml mucous membrane TID Qty: 250 1RF Rx Instructions: swish and swallow 5 cc three times per day for 10 days guaifenesin 1,200 mg tablet extended release 12hr 1,200 mg PO Q12H Qty: 60 6RF pantoprazole 40 MG tablet 40 mg PO BID Label Comments: stomach lorazepam 0.5 MG tablet 0.5 mg PO BID PRN (Reason: ANXIETY) Label Comments: anxiety bupropion HCl 150 MG tablet extended release 24 hr 150 mg PO DAILY Label Comments: depression potassium chloride 20 MEQ tablet 20 meq PO DAILY montelukast 10 MG tablet 10 mg PO QHS furosemide 40 MG tablet 40 mg PO DAILY Qty: 0 0RF Hold Instructions: Resume on 10/25/22. acetaminophen 650 MG tablet extended release 650 mg PO Q6H PRN (Reason: BACK PAIN) famotidine 20 mg tablet 20 mg PO DAILY PRN (Reason: gerd) Label Comments: TAKE 1 TABLET BY MOUTH AT BEDTIME NEEDED paroxetine HCl 20 mg tablet 10 mg PO BID albuterol sulfate 2.5 MG/3 ML solution for nebulization 2.5 mg inhalation Q4H PRN Qty: 25 0RF Rx Instructions: Use q4 hours and PRN for wheezing amiodarone 200 mg tablet 100 mg PO DAILY ezetimibe [Zetia] 10 mg tablet 10 mg PO DAILY warfarin 2.5 mg Tablet 2.5 mg PO DAILY prednisone 20 mg tablet 40 mg PO DAILY 3 Days Qty: 6 0RF metoprolol succinate 100 mg Tablet Extended Release 24 Hr 100 mg PO DAILY 30 Days Qty: 30 2RF amlodipine 2.5 mg Tablet 2.5 mg PO DAILY 30 Days Qty: 30 0RF nitroglycerin 0.4 mg Tablet, Sublingual 0.4 mg sublingual Q5M PRN (Reason: Cardiac/Chest Pain) 30 Days Qty: 30 0RF aspirin 81 mg Tablet,Delayed Release (Dr/Ec) 81 mg PO BREAKFAST 30 Days Qty: 30 2RF triamcinolone acetonide [Nasacort] 55 mcg aerosol,spray 1 spray INTRANASAL DAILY Qty: 16.9 6RF fluticasone furoate-vilanterol [Breo Ellipta] 200-25 mcg/dose blister with device 1 inh inhalation DAILY Qty: 60 11RF pravastatin 80 mg tablet 80 mg PO QHS Qty: 90 3RF Spiriva Respimat 2.5 mcg/actuation mist 2 puff inhalation QDAY Qty: 3 3RF Rx Instructions: administer at approximately the same time(s) each day Primary Care Provider: Harley Cornejo Referrals: Harley Cornejo MD [Primary Care Provider] - Activity Restrictions/Additional Instructions: Take the higher dose of coumadin tonigh t(4.5) and then call your doctor tomorrow for further instructions. Disposition Disposition: Home, Self Care
[2022-11-13 17:18] LABS: Absolute Lymphocyte Count 0.75 X10^3/uL (0.83-4.51); Basophil# 0.04 X10^3/uL; Basophil% 0.4 % (0-1); Eosinophil# 0.14 X10^3/uL; Eosinophils% 1.3 % (0-5); Hematocrit 41.3 % (37-47); Hemoglobin 12.6 g/dL (12.0-15.0); Lymphocyte # 0.75 X10^3/ul (0.83-4.51); Mean Corp Hgb Conc 30.5 g/dL (32-36); Mean Corpuscular Hgb 28.1 pg (27.0-32.0); Mean Corpuscular Volume 92.2 fL (81-99); Mean Platelet Vol. 9.9 fl (6.2-12.0); Monocyte% 6.6 % (0-10); NRBC Flagged by Analyzer 0 % (0-5); Neutrophil # 8.96 X10^3/uL (2.7-7.7); Platelet Count 353 K/mm3 (150-450); RBC Distribution Width CV 13.8 % (11.6-14.6); RBC Distribution Width SD 46.8 fl (35.1-43.9); Red Blood Count 4.48 M/mm3 (4.2-5.4); White Blood Count 10.7 K/mm3 (4.4-11.0)
--- NOTE | 2022-11-13 17:20 | RAD_ITS ---
STUDY: X-RAY CHEST REASON FOR EXAM: Female, 76 years old. chest pain TECHNIQUE: Frontal and lateral views of the chest. COMPARISON: November 01, 2022 FINDINGS: Sternotomy wires. Subsegmental atelectasis left lower lobe. Small bilateral effusions unchanged. Normal size heart. Normal mediastinum and chica. Normal visualized pulmonary arteries. Normal visualized aortic arch and descending thoracic aorta. Moderate levoconvex scoliosis. Compression fracture mid thoracic spine, age indeterminate. Normal visualized ribs, clavicles, and shoulders. There is no demonstrated abnormality of the visualized soft tissue structures of the upper abdomen. RAD/Chest PA and Lateral IMPRESSION: No change. Left lower lobe subsegmental atelectasis. Small bilateral pleural effusions. Compression fracture mid thoracic spine age indeterminate. Electronically Signed: Gabe Yanes MD at 17:41 EDT ,
[2022-11-13 17:27] LABS: International Normalized Ratio 1.7; Prothrombin Time (Protime)PT. 19.4 SECONDS (11.7-14.9)
[2022-11-13 17:36] LABS: Anion Gap 0 (5-15); BUN 14 mg/dL (7-18); BUN/Creat Ratio 17.4 RATIO (10-20); Calcium,Total 9.9 mg/dL (8.5-10.1); Chloride 103 mmol/L (98-107); EST Glomerular Filtration Rate 73 mL/min (>60); Est Glom Filt Rate - Afr Amer 89 mL/min (>60); Glucose 92 mg/dL (74-106); Potassium 3.6 mmol/L (3.5-5.1); Sodium Level 137 mmol/L (136-145); Troponin-I HS 22 pg/mL (3.0-54.0)
== END 2022-11-13 18:54 | disposition home or self-care (01) ==
PROVIDERS: Physician Assistant; Emergency Provider Emergency Medicine; PCP Family Medicine; Visit Provider Emergency Medicine
DX: R42 Dizziness and giddiness (principal); G31.83 Neurocognitive disorder with Lewy bodies; F02.80 Dementia in other diseases classified elsewhere, unspecified severity, without behavioral disturbance, psychotic disturbance, mood disturbance, and anxiety; J44.9 Chronic obstructive pulmonary disease, unspecified; I13.0 Hypertensive heart and chronic kidney disease with heart failure and stage 1 through stage 4 chronic kidney disease, or unspecified chronic kidney disease; I50.32 Chronic diastolic (congestive) heart failure; I48.20 Chronic atrial fibrillation, unspecified; I25.10 Atherosclerotic heart disease of native coronary artery without angina pectoris; E78.5 Hyperlipidemia, unspecified; N18.2 Chronic kidney disease, stage 2 (mild); Z79.01 Long term (current) use of anticoagulants; Z95.2 Presence of prosthetic heart valve
CPT/HCPCS: 71046; 80048; 84484; 85025; 85610; 93005; 99282; A4216

== ENCOUNTER → 2022-12-14 | Outpatient (CLI) | payer MEDICARE, OTHER, SELFPAY ==
[2022-12-14 14:32] VITALS: PULSE 75; PULSE 76; PULSE 78; PULSE 81; PULSE 82; PULSE 83; PULSE 84; O2SAT 3; O2SAT 90; O2SAT 91; O2SAT 92; O2SAT 93; O2SAT 95
--- NOTE | 2022-12-14 14:36 | CPS ---
Pt arrived to walk wearing 3lpm pulse dose. Pt was placed on room air and saturation dropped to 83% at rest. Pt was placed back on 3 lpm pulse dose and saturation to 85% while at rest. Pt was increased to 5 lpm on pulse dose and saturation up to 87-89% while at rest. Pt to 6 lpm pulse dose and saturation 89% at rest. Pt changed to 2 lpm continuous and saturation 87% at rest. Pt increased to 3 lpm continuous and saturation to 92%. Walk started with pt on 3 lpm and pt maintained at 3lpm for her walk. Pt sat twice during walk do to leg pain and denied being S.O.B.
--- NOTE | 2022-12-15 09:14 | WT_ITS ---
PSN 6 Minute Walk Test 6 Minute Walk Test 6 Minute Walk Test: 6 Minute Walk Test PSN:6-Minute Walk Test Start: 12/14/22 14:31 Freq: Status: Active Protocol: [id number] Document 12/14/22 14:32 AE (Rec: 12/14/22 14:42 [facility] [id number]) 6 Minute Walk Test Date Performed 12/14/22 Time Performed 13:45 Height 5 ft Weight: 121 lb Weight in Pounds 121.[address]: Dr Johnson Assistive device used: None Pre-test Oxygen Flow Rate (L/min) (L/min) 3 Oxygen Delivery Method Nasal Cannula Pulse Ox (%) 92 Pulse Rate (60-100 beats/min) 78 Dyspnea [place] Scale (0-10) 0 Exertion [place] Scale (6-20) 6 1st minute Oxygen Flow Rate (L/min) (L/min) 3 Oxygen Delivery Method Nasal Cannula Pulse Ox (%) 92 Pulse Rate (60-100 beats/min) 82 2nd minute Oxygen Flow Rate (L/min) (L/min) 3 Oxygen Delivery Method Nasal Cannula Pulse Ox (%) 90 Pulse Rate (60-100 beats/min) 84 Number of Rests Taken 1 3rd minute Oxygen Flow Rate (L/min) (L/min) 3 Oxygen Delivery Method Nasal Cannula Pulse Ox (%) 90 Pulse Rate (60-100 beats/min) 83 4th minute Oxygen Flow Rate (L/min) (L/min) 3 Oxygen Delivery Method Nasal Cannula Pulse Ox (%) 91 Pulse Rate (60-100 beats/min) 82 Number of Rests Taken 1 5th minute Oxygen Flow Rate (L/min) (L/min) 3 Oxygen Delivery Method Nasal Cannula Pulse Ox (%) 93 Pulse Rate (60-100 beats/min) 76 6th minute Oxygen Flow Rate (L/min) (L/min) 3 Oxygen Delivery Method Nasal Cannula Pulse Ox (%) 95 Pulse Rate (60-100 beats/min) 81 Dyspnea [place] Scale (0-10) 0 Exertion [place] Scale (6-20) 13 Post-test Oxygen Flow Rate (L/min) (L/min) 3 Oxygen Delivery Method Nasal Cannula Pulse Ox (%) 3 Pulse Rate (60-100 beats/min) 75 Full Laps Walked 3 Partial Lap, Number of Tiles Walked 0 Total Distance Walked (ft) 177 12/14/22 14:36 Cardiopulmonary Services by Dorota Estevez Pt arrived to walk wearing 3lpm pulse dose. Pt was placed on room air and saturation dropped to 83% at rest. Pt was placed back on 3 lpm pulse dose and saturation to 85% while at rest. Pt was increased to 5 lpm on pulse dose and saturation up to 87-89% while at rest. Pt to 6 lpm pulse dose and saturation 89% at rest. Pt changed to 2 lpm continuous and saturation 87% at rest. Pt increased to 3 lpm continuous and saturation to 92%. Walk started with pt on 3 lpm and pt maintained at 3lpm for her walk. Pt sat twice during walk do to leg pain and denied being S.O.B. Initialized on 12/14/22 14:36 - END OF NOTE Interpretation Interpretation: The patient ambulated 177 feet over the course of 6 minutes beginning on room air without assistive devices. Pretesting oxygen saturation was noted to be 83% on room air. The patient was placed on 3 L/min of continuous flow oxygen per testing. With ambulation, the abhay oxygen saturation was 90%. Recommendations Recommendations: 3 L/min of continuous flow supplemental oxygen should be utilized at rest and with exertion.
== END | disposition home or self-care (01) ==
LOC: PSN 13:34
PROVIDERS: PCP Family Medicine; Referring Provider Internal Medicine Critical Care Medicine; Visit Provider Internal Medicine Critical Care Medicine
DX: J47.9 Bronchiectasis, uncomplicated (principal)
CPT/HCPCS: 94618

== ENCOUNTER 2022-12-26 14:28 | Emergency (ER) | payer MEDICARE, OTHER, SELFPAY ==
[2022-12-26 14:30] VITALS: BP 130/72; PULSE 77; RESP 18; TEMP 36.8; O2SAT 92
[2022-12-26 14:57] VITALS: BMI 23.1
--- NOTE | 2022-12-26 15:21 | ED.VIS.DYS ---
HPI History of Present Illness Chief Complaint: Shortness of Breath Narrative Narrative: 77-year-old female presenting with shortness of breath which has been present for about 3 days. Patient is not having any chest pain. She is not coughing more than usual. She is short of breath with exertion and states that her oxygen has dropped to 88 at its lowest on her home pulse ox. She is wearing 3 L of nasal cannula which is continuous. She just had a 6-minute walk done earlier this month on the . This is when she started wearing the 3 L of continuous nasal cannula oxygen. Patient denies fever, chills, myalgias. She is not having any chest pain. Patient has significant history of COPD, CHF, paroxysmal A-fib on Coumadin, Pseudomonas pneumonia, COPD. [facility] Medical History Allergic rhinitis Aneurysm, thoracic aortic Anxiety Aortic stenosis Asthma Atherosclerotic heart disease of [place] coronary artery without angina pectoris Bronchiectasis CAP (community acquired pneumonia) Chronic a-fib Chronic anticoagulation Chronic diastolic heart failure Chronic sinusitis CKD (chronic kidney disease), stage II Cough Depression Essential hypertension Fatigue GERD (gastroesophageal reflux disease) Hemoptysis Hiatal hernia History of cardioversion (~07/08/20) Hyperlipidemia Hypertension Hypoxemia 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 Nonrheumatic aortic valve regurgitation Nonspecific chest pain NSTEMI, initial episode of care Obesity Palpitations Severe sepsis Syncope and collapse Home Medications pantoprazole 40 mg tablet,delayed release 40 mg PO BID ACID REFLUX 01/14/15 [History Last Taken 07/07/20] bupropion HCl 150 mg 24 hr tablet, extended release 150 mg PO DAILY DEPRESSION 11/15/15 [History Last Taken 07/07/20] montelukast 10 mg tablet 10 mg PO QHS ALLERGIES 05/03/17 [History Last Taken 07/06/20] potassium chloride 20 mEq tablet,extended release(part/cryst) 20 meq PO DAILY SUPPLEMENT 05/03/17 [History Last Taken 07/06/20] lorazepam 0.5 mg tablet 0.5 mg PO BID PRN ANXIETY 09/04/17 [History Last Taken 07/07/20] furosemide 40 mg tablet 40 mg PO DAILY WATER PILL ##0 12/06/17 [Rx Last Taken 07/06/20] cholecalciferol (vitamin D3) 1,250 mcg (50,000 unit) capsule 50,000 unit PO FR SUPPLEMENT 06/16/19 [History Last Taken 06/25/20] acetaminophen 650 mg tablet,extended release 650 mg PO Q6H PRN BACK PAIN 07/07/20 [History Last Taken 07/07/20] albuterol sulfate 2.5 mg/3 mL (0.083 %) solution for nebulization 2.5 mg (3 mL) inhalation Q4H PRN #25 vials 05/21/21 [Rx Last Taken Unknown] triamcinolone acetonide 55 mcg nasal spray aerosol (Nasacort) 1 spray intranasal DAILY #16.9 mL 06/10/21 [Rx Last Taken Unknown] famotidine 20 mg tablet 20 mg PO DAILY PRN gerd 11/29/21 [History Last Taken Unknown] ferrous sulfate 325 mg (65 mg iron) tablet 325 mg PO BID Check with primary doctor 11/29/21 [History Last Taken Unknown] fluticasone furoate 200 mcg-vilanterol 25 mcg/dose inhalation powder (Breo Ellipta) 1 inh inhalation DAILY #60 ea 08/07/22 [Rx Last Taken Unknown] pravastatin 80 mg tablet 80 mg PO QHS CHOLESTEROL LOWERING #90 tabs 09/25/22 [Rx Last Taken Unknown] tiotropium bromide 2.5 mcg/actuation mist for inhalation (Spiriva Respimat) 2 puff inhalation QDAY #3 ea 10/17/22 [Rx Last Taken Unknown] amiodarone 200 mg tablet 100 mg PO DAILY Check with primary doctor 10/20/22 [History Last Taken Unknown] ezetimibe 10 mg tablet (Zetia) 10 mg PO DAILY Check with primary doctor 10/20/22 [History Last Taken Unknown] warfarin 2.5 mg tablet 2.5 mg PO DAILY Check with primary doctor 10/20/22 [History Last Taken Unknown] aspirin 81 mg tablet,delayed release 81 mg PO BREAKFAST 30 days #30 tabs 11/03/22 [Rx Last Taken Unknown] metoprolol succinate 100 mg tablet,extended release 24 hr 100 mg PO DAILY 30 days #30 tabs 11/03/22 [Rx Last Taken Unknown] nitroglycerin 0.4 mg sublingual tablet 0.4 mg sublingual Q5M PRN Cardiac/Chest Pain 30 days #30 tabs 11/03/22 [Rx Last Taken Unknown] guaifenesin 1,200 mg tablet, extended release 12 hr 1,200 mg PO Q12H #60 tabs 11/08/22 [Rx Last Taken Unknown] nystatin 100,000 unit/mL oral suspension 5 ml mucous membrane TID #250 mL 11/08/22 [Rx Last Taken Unknown] amlodipine 2.5 mg tablet 2.5 mg PO DAILY #90 tabs 11/20/22 [Rx Last Taken Unknown] albuterol sulfate 90 mcg/actuation aerosol inhaler 2 puff inhalation Q4H PRN shortness of breath or wheezing #8.5 grams 12/07/22 [Rx Last Taken Unknown] paroxetine HCl 20 mg tablet 30 mg PO BID Check with primary doctor 12/07/22 [History Last Taken Unknown] levofloxacin 500 mg tablet 500 mg PO DAILY #6 tabs 12/26/22 [Rx Last Taken Unknown] prednisone 50 mg tablet 50 mg PO DAILY 5 days #5 tabs 12/26/22 [Rx Last Taken Unknown] Allergy/AdvReac Type Severity Reaction Status Date / Time donepezil Allergy Severe shortness Verified 12/26/22 14:32 of breath risperidone Allergy Severe Confusion Verified 12/26/22 14:32 Sulfa (Sulfonamide Allergy Swelling Verified 12/26/22 14:32 Antibiotics) celecoxib [From Celebrex] AdvReac Severe Swelling Verified 12/26/22 14:32 dextromethorphan AdvReac Severe hallucinati Verified 12/26/22 14:32 [From Delsym] on adhesive AdvReac blisters Verified 12/26/22 14:32 codeine AdvReac Itching Verified 12/26/22 14:32 levofloxacin [From Levaquin] AdvReac pain in Verified 12/26/22 14:32 legs and swelling lisinopril AdvReac cough Verified 12/26/22 14:32 oxycodone [Oxycodone] AdvReac Itching Verified 12/26/22 14:32 oxycodone HCl [From Percocet] AdvReac Itching Verified 12/26/22 14:32 Penicillins AdvReac heart Verified 12/26/22 14:32 palpitations prochlorperazine edisylate AdvReac Low blood Verified 12/26/22 14:32 [From Compazine] pressure prochlorperazine maleate AdvReac Low blood Verified 12/26/22 14:32 [From Compazine] pressure tramadol HCl [From Ultram] AdvReac Itching Verified 12/26/22 14:32 Family History Mother Arthritis CAD (coronary artery disease) Father Arthritis High cholesterol CAD (coronary artery disease) Sister Diabetes High cholesterol Hypertension Brother Diabetes High cholesterol Hypertension Surgical History H/O aortic valve replacement History of back surgery History of foot surgery History of hysterectomy History of mechanical aortic valve replacement (~10/07/13) History of sinus surgery Social History household members: spouse number of children: 2 Smoking Status: Never smoker alcohol intake: never substance use type: does not use caffeine: Yes Type: coffee what type of physical activity do you participate in: none seatbelt use: always do you feel safe at home: Yes ROS ROS ED Constitutional Constitutional ED: Denies chills or fever(s) Eyes Eyes: Denies blurry vision or change in vision ENT ENT ED: Denies rhinorrhea or sore throat Cardiovascular Cardiovascular: Denies chest pain or palpitations Respiratory/Chest Respiratory/Chest: Reports dyspnea and dyspnea on exertion Gastrointestinal Gastrointestinal: Denies abdominal pain, nausea or vomiting Genitourinary Genitourinary ED: Denies dysuria or hematuria Musculoskeletal Musculoskeletal: Denies arthralgias, back pain or myalgias Integumentary Denies abscess Neurologic Neurologic: Denies headache(s) Psychiatric Psychiatric: Denies anxiety or depression EXAM Physical Exam Const Vital Signs: 12/26/22 14:30 12/26/22 15:02 12/26/22 15:48 Temperature 98.3 F Temperature Source Temporal Pulse Rate 77 69 Respiratory Rate 18 16 Respiratory Effort Normal Non-Labored Respiratory Depth Normal Respiratory Pattern Normal Normal Blood Pressure 130/72 H Blood Pressure Mean 91 Pulse Ox 92 Oxygen Delivery Method Nasal Cannula Nasal Cannula Oxygen Flow Rate (L/min) 3 3 12/26/22 16:40 12/26/22 16:41 12/26/22 18:00 Temperature Temperature Source Pulse Rate 71 Respiratory Rate 22 H Respiratory Effort Respiratory Depth Respiratory Pattern Blood Pressure Blood Pressure Mean Pulse Ox 96 97 Oxygen Delivery Method Nasal Cannula Nasal Cannula Oxygen Flow Rate (L/min) 3 3 12/26/22 19:00 Temperature Temperature Source Pulse Rate 70 Respiratory Rate 18 Respiratory Effort Respiratory Depth Respiratory Pattern Blood Pressure Blood Pressure Mean Pulse Ox 96 Oxygen Delivery Method Oxygen Flow Rate (L/min) Positive well nourished General Appearance ED: NAD HEENT Reports moist mucous membranes atraumatic Eyes PERRL and EOMs intact bilaterally Resp normal respiratory effort Auscultation: wheezes scattered wheezes GI non-tender Extremity normal to inspection Neuro oriented x3 and CN's II-XII intact bilaterally Sensorium / Orientation: alert Motor Exam: strength 5/5 throughout Psych mental status grossly normal Skin no wounds and skin turgor normal MDM MDM MDM Narrative Medical decision making narrative: Patient presenting with shortness of breath. She states has been ongoing for about 3 days. Significant history of A-fib, CHF, COPD, pneumonia, seasonal allergies. She denies fever, chills, myalgias. States does not feel like she is ill. Patient is wheezing on exam and she is given Solu-Medrol 125 as well as breathing treatments. Differential includes COPD exacerbation, pneumonia, ACS, CHF, anemia, electrolyte abnormalities, dehydration. CBC to assess white blood cell count, hemoglobin, platelets, differential. BMP to assess renal function, electrolytes, glucose, anion gap. High-sensitivity troponin and EKG to assess for ischemia. BNP to assess for CHF. CBC shows a leukocytosis of 16.2. Hemoglobin chronic are stable. Platelets are normal. Creatinine slightly elevated at 1.17. Potassium slight low at 3.4. High-sensitivity troponin is 24. BNP is 151.4. Chest x-ray on my interpretation does not show any acute cardiopulmonary process. Radiologist services and agrees. No evidence of CHF or pneumonia. EKG sinus rhythm with a ventricular rate of 71 bpm without sign of ischemic change or ectopy on my interpretation. After treatments the patient was ambulated on her baseline oxygen at 3 L and she did desat to 88% but she states she feels better. I spoke with Dr. Johnson regarding her and states she has oxygen set up at home he recommended just turning up her oxygen and I will give her a prednisone burst as well as Levaquin and he recommended she follow-up in the office. Return precautions were discussed. Patient was amenable to this plan. She is discharged home in stable condition. Impression: 1. COPD exacerbation Lab Data Attestation: I reviewed the patient's lab results. Labs: Laboratory Results - last 24 hr 12/26/22 12/26/22 12/26/22 15:35 15:35 15:35 WBC 16.2 H RBC 4.49 Hgb 12.2 Hct 40.3 MCV 89.8 MCH 27.2 MCHC 30.3 L RDW Std Deviation 44.5 H RDW Coeff of Loki 13.6 Plt Count 430 MPV 9.5 Immature Gran % (Auto) 0.600 Neut % (Auto) 87.2 H Lymph % (Auto) 5.8 L Sharkey % (Auto) 5.2 Eos % (Auto) 0.8 Baso % (Auto) 0.4 Absolute Neuts (auto) 14.1 H Absolute Lymphs (auto) 0.93 Nucleated RBC % 0 PT INR Sodium 140 Potassium 3.4 L Chloride 98 Carbon Dioxide 35.0 H Anion Gap 7 BUN 20 H Creatinine 1.17 H Estim Creat Clear Calc 28.46 Est GFR (MDRD) Af Amer 58 L Est GFR (MDRD) Non-Af 48 L BUN/Creatinine Ratio 17.1 Glucose 78 Calcium 9.7 Troponin I High Sens 24 B-Natriuretic Peptide 151.4 H 12/26/22 15:35 WBC RBC Hgb Hct MCV MCH MCHC RDW Std Deviation RDW Coeff of Loki Plt Count MPV Immature Gran % (Auto) Neut % (Auto) Lymph % (Auto) Sharkey % (Auto) Eos % (Auto) Baso % (Auto) Absolute Neuts (auto) Absolute Lymphs (auto) Nucleated RBC % PT 27.3 H INR 2.5 Sodium Potassium Chloride Carbon Dioxide Anion Gap BUN Creatinine Estim Creat Clear Calc Est GFR (MDRD) Af Amer Est GFR (MDRD) Non-Af BUN/Creatinine Ratio Glucose Calcium Troponin I High Sens B-Natriuretic Peptide Radiography Diagnostic Testing: Clinical Impression(s) from Imaging Studies Chest X-Ray 12/26/22 16:06 IMPRESSION: No definite acute or significant abnormality seen. Electronically Signed: Berny Starr MD at 16:36 EDT , Discharge Plan Triage Chief Complaint: Shortness of Breath ED Provider: Forrest Smiley Dx/Rx/DC Orders Instructions: ED COPD Flare Prescriptions: New prednisone 50 mg tablet 50 mg PO DAILY 5 Days Qty: 5 0RF levofloxacin 500 mg tablet 500 mg PO DAILY Qty: 6 0RF No Action cholecalciferol (vitamin D3) 50,000 unit capsule 50,000 unit PO FR ferrous sulfate 325 mg (65 mg iron) tablet 325 mg PO BID Label Comments: TAKE 1 TABLET BY MOUTH TWICE DAILY WITH MEALS amlodipine 2.5 mg tablet 2.5 mg PO DAILY Qty: 90 3RF albuterol sulfate 90 mcg/actuation HFA aerosol inhaler 2 puff inhalation Q4H PRN (Reason: shortness of breath or wheezing) Qty: 8.5 6RF Rx Instructions: administer with spacer nystatin 100,000 unit/mL suspension 5 ml mucous membrane TID Qty: 250 1RF Rx Instructions: swish and swallow 5 cc three times per day for 10 days guaifenesin 1,200 mg tablet extended release 12hr 1,200 mg PO Q12H Qty: 60 6RF pantoprazole 40 MG tablet 40 mg PO BID Label Comments: stomach lorazepam 0.5 MG tablet 0.5 mg PO BID PRN (Reason: ANXIETY) Label Comments: anxiety bupropion HCl 150 MG tablet extended release 24 hr 150 mg PO DAILY Label Comments: depression potassium chloride 20 MEQ tablet 20 meq PO DAILY montelukast 10 MG tablet 10 mg PO QHS furosemide 40 MG tablet 40 mg PO DAILY Qty: 0 0RF Hold Instructions: Resume on 10/25/22. acetaminophen 650 MG tablet extended release 650 mg PO Q6H PRN (Reason: BACK PAIN) famotidine 20 mg tablet 20 mg PO DAILY PRN (Reason: gerd) Label Comments: TAKE 1 TABLET BY MOUTH AT BEDTIME NEEDED paroxetine HCl 20 mg tablet 30 mg PO BID albuterol sulfate 2.5 MG/3 ML solution for nebulization 2.5 mg inhalation Q4H PRN Qty: 25 0RF Rx Instructions: Use q4 hours and PRN for wheezing amiodarone 200 mg tablet 100 mg PO DAILY ezetimibe [Zetia] 10 mg tablet 10 mg PO DAILY warfarin 2.5 mg Tablet 2.5 mg PO DAILY metoprolol succinate 100 mg Tablet Extended Release 24 Hr 100 mg PO DAILY 30 Days Qty: 30 2RF nitroglycerin 0.4 mg Tablet, Sublingual 0.4 mg sublingual Q5M PRN (Reason: Cardiac/Chest Pain) 30 Days Qty: 30 0RF aspirin 81 mg Tablet,Delayed Release (Dr/Ec) 81 mg PO BREAKFAST 30 Days Qty: 30 2RF triamcinolone acetonide [Nasacort] 55 mcg aerosol,spray 1 spray INTRANASAL DAILY Qty: 16.9 6RF fluticasone furoate-vilanterol [Breo Ellipta] 200-25 mcg/dose blister with device 1 inh inhalation DAILY Qty: 60 11RF pravastatin 80 mg tablet 80 mg PO QHS Qty: 90 3RF Spiriva Respimat 2.5 mcg/actuation mist 2 puff inhalation QDAY Qty: 3 3RF Rx Instructions: administer at approximately the same time(s) each day Primary Care Provider: Harley Cornejo Referrals: Harley Cornejo MD [Primary Care Provider] - Disposition Disposition: Home, Self Care Discharge Date/Time: 12/26/22 19:23
[2022-12-26 15:47] LABS: Absolute Lymphocyte Count 0.93 X10^3/uL (0.83-4.51); Absolute Neutrophil Count 14.1 X10^3/uL (2.0-7.7); Basophil# 0.06 X10^3/uL; Basophil% 0.4 % (0-1); Eosinophil# 0.13 X10^3/uL; Eosinophils% 0.8 % (0-5); Hematocrit 40.3 % (37-47); Hemoglobin 12.2 g/dL (12.0-15.0); Lymphocyte # 0.93 X10^3/ul (0.83-4.51); Lymphocyte % 5.8 % (19-41); Mean Corp Hgb Conc 30.3 g/dL (32-36); Mean Corpuscular Hgb 27.2 pg (27.0-32.0); Mean Corpuscular Volume 89.8 fL (81-99); Mean Platelet Vol. 9.5 fl (6.2-12.0); Monocyte# 0.84 X10^3/uL; Monocyte% 5.2 % (0-10); NRBC Flagged by Analyzer 0 % (0-5); Neutrophil # 14.12 X10^3/uL (2.7-7.7); Neutrophil % 87.2 % (47-70); Platelet Count 430 K/mm3 (150-450); RBC Distribution Width CV 13.6 % (11.6-14.6); RBC Distribution Width SD 44.5 fl (35.1-43.9); Red Blood Count 4.49 M/mm3 (4.2-5.4); White Blood Count 16.2 K/mm3 (4.4-11.0)
[2022-12-26] MEDS: Albuterol 2.5 MG/3 ML VIAL.NEB. INHALATION (15:47)
[2022-12-26 15:48] VITALS: PULSE 69; RESP 16
[2022-12-26] MEDS: Ipratropium/Albuterol Sulfate 3 ML AMPUL.NEB INHALATION (15:48)
[2022-12-26 15:59] LABS: International Normalized Ratio 2.5; Prothrombin Time (Protime)PT. 27.3 SECONDS (11.7-14.9)
[2022-12-26] MEDS: MethylPREDNISolone 125 MG/2 ML Vial IV (15:59)
--- NOTE | 2022-12-26 16:06 | RAD_ITS ---
STUDY: X-RAY CHEST REASON FOR EXAM: Female, 77 years old. chest pain Cough and short of breath. TECHNIQUE: Single AP portable view of the chest. COMPARISON: 11/13/2022 FINDINGS: Continued elevation of the right hemidiaphragm. Stable mild discoid atelectasis across the lower left lung. No definite infiltrates or effusions. Normal size heart. Previous CABG. Normal mediastinum and chica. Normal visualized pulmonary arteries. There is atherosclerotic calcification of the aortic arch with tortuosity. There are diffuse degenerative changes of the visualized thoracic spine. Normal visualized ribs, clavicles, and shoulders. There is no demonstrated abnormality of the visualized soft tissue structures of the upper abdomen. RAD/Chest 1 View (Portable) IMPRESSION: No definite acute or significant abnormality seen. Electronically Signed: Berny Starr MD at 16:36 EDT ,
[2022-12-26 16:07] LABS: Anion Gap 7 (5-15); BUN 20 mg/dL (7-18); BUN/Creat Ratio 17.1 RATIO (10-20); Calcium,Total 9.7 mg/dL (8.5-10.1); Chloride 98 mmol/L (98-107); Creatinine, Serum 1.17 mg/dL (0.55-1.02); EST Glomerular Filtration Rate 48 mL/min (>60); Est Glom Filt Rate - Afr Amer 58 mL/min (>60); Estimated Creatinine Clearance 28.46 ml/min; Glucose 78 mg/dL (74-106); Potassium 3.4 mmol/L (3.5-5.1); Sodium Level 140 mmol/L (136-145); Troponin-I HS 24 pg/mL (3.0-54.0)
[2022-12-26 16:09] LABS: BNP,B-Type NATRIURETIC PEPTIDE 151.4 pg/mL (0-100)
[2022-12-26 16:40] VITALS: O2SAT 94
[2022-12-26 16:41] VITALS: O2SAT 96
[2022-12-26 18:00] VITALS: PULSE 71; RESP 22; O2SAT 97
[2022-12-26 19:00] VITALS: PULSE 70; RESP 18; O2SAT 96
[2022-12-26] MEDS: levoFLOXacin 500 MG Tablet PO (19:07)
== END 2022-12-26 19:23 | disposition home or self-care (01) ==
PROVIDERS: Emergency Provider Student in an Organized Health Care Education/Training Program; PCP Family Medicine; Visit Provider Student in an Organized Health Care Education/Training Program
DX: J44.1 Chronic obstructive pulmonary disease with (acute) exacerbation (principal); I50.32 Chronic diastolic (congestive) heart failure; I13.0 Hypertensive heart and chronic kidney disease with heart failure and stage 1 through stage 4 chronic kidney disease, or unspecified chronic kidney disease; I25.10 Atherosclerotic heart disease of native coronary artery without angina pectoris; E78.5 Hyperlipidemia, unspecified; N18.2 Chronic kidney disease, stage 2 (mild); K21.9 Gastro-esophageal reflux disease without esophagitis; F32.A Depression, unspecified; Z99.81 Dependence on supplemental oxygen; F41.9 Anxiety disorder, unspecified; Z79.899 Other long term (current) drug therapy; J45.909 Unspecified asthma, uncomplicated; Z79.51 Long term (current) use of inhaled steroids; Z79.01 Long term (current) use of anticoagulants; Z79.82 Long term (current) use of aspirin; Z95.2 Presence of prosthetic heart valve
CPT/HCPCS: 71045; 80048; 83880; 84484; 85025; 85610; 93005; 94640; 99283; A4216

== ENCOUNTER 2023-01-13 06:17 | Emergency (ER) | payer MEDICARE, OTHER, SELFPAY ==
[2023-01-13 06:18] VITALS: BP 156/68; PULSE 63; RESP 17; TEMP 35.9; O2SAT 96; BMI 23.1
--- NOTE | 2023-01-13 07:08 | EX.ED.DYSGE1 ---
HPI History of Present Illness Chief Complaint: Nosebleed [facility] Medical History Allergic rhinitis Aneurysm, thoracic aortic Anxiety Aortic stenosis Asthma Atherosclerotic heart disease of [place] coronary artery without angina pectoris Bronchiectasis CAP (community acquired pneumonia) Chronic a-fib Chronic anticoagulation Chronic diastolic heart failure Chronic sinusitis CKD (chronic kidney disease), stage II Cough Depression Essential hypertension Fatigue GERD (gastroesophageal reflux disease) Hemoptysis Hiatal hernia History of cardioversion (~07/08/20) Hyperlipidemia Hypertension Hypoxemia 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 Nonrheumatic aortic valve regurgitation Nonspecific chest pain NSTEMI, initial episode of care Obesity Palpitations Severe sepsis Syncope and collapse Home Medications pantoprazole 40 mg tablet,delayed release 40 mg PO BID ACID REFLUX 01/14/15 [History Last Taken 07/07/20] bupropion HCl 150 mg 24 hr tablet, extended release 150 mg PO DAILY DEPRESSION 11/15/15 [History Last Taken 07/07/20] montelukast 10 mg tablet 10 mg PO QHS ALLERGIES 05/03/17 [History Last Taken 07/06/20] potassium chloride 20 mEq tablet,extended release(part/cryst) 20 meq PO DAILY SUPPLEMENT 05/03/17 [History Last Taken 07/06/20] lorazepam 0.5 mg tablet 0.5 mg PO BID PRN ANXIETY 09/04/17 [History Last Taken 07/07/20] furosemide 40 mg tablet 40 mg PO DAILY WATER PILL ##0 12/06/17 [Rx Last Taken 07/06/20] cholecalciferol (vitamin D3) 1,250 mcg (50,000 unit) capsule 50,000 unit PO FR SUPPLEMENT 06/16/19 [History Last Taken 06/25/20] acetaminophen 650 mg tablet,extended release 650 mg PO Q6H PRN BACK PAIN 07/07/20 [History Last Taken 07/07/20] albuterol sulfate 2.5 mg/3 mL (0.083 %) solution for nebulization 2.5 mg (3 mL) inhalation Q4H PRN #25 vials 05/21/21 [Rx Last Taken Unknown] triamcinolone acetonide 55 mcg nasal spray aerosol (Nasacort) 1 spray intranasal DAILY #16.9 mL 06/10/21 [Rx Last Taken Unknown] famotidine 20 mg tablet 20 mg PO DAILY PRN gerd 11/29/21 [History Last Taken Unknown] ferrous sulfate 325 mg (65 mg iron) tablet 325 mg PO BID Check with primary doctor 11/29/21 [History Last Taken Unknown] fluticasone furoate 200 mcg-vilanterol 25 mcg/dose inhalation powder (Breo Ellipta) 1 inh inhalation DAILY #60 ea 08/07/22 [Rx Last Taken Unknown] pravastatin 80 mg tablet 80 mg PO QHS CHOLESTEROL LOWERING #90 tabs 09/25/22 [Rx Last Taken Unknown] tiotropium bromide 2.5 mcg/actuation mist for inhalation (Spiriva Respimat) 2 puff inhalation QDAY #3 ea 10/17/22 [Rx Last Taken Unknown] amiodarone 200 mg tablet 100 mg PO DAILY Check with primary doctor 10/20/22 [History Last Taken Unknown] ezetimibe 10 mg tablet (Zetia) 10 mg PO DAILY Check with primary doctor 10/20/22 [History Last Taken Unknown] warfarin 2.5 mg tablet 2.5 mg PO DAILY Check with primary doctor 10/20/22 [History Last Taken Unknown] aspirin 81 mg tablet,delayed release 81 mg PO BREAKFAST 30 days #30 tabs 11/03/22 [Rx Last Taken Unknown] metoprolol succinate 100 mg tablet,extended release 24 hr 100 mg PO DAILY 30 days #30 tabs 11/03/22 [Rx Last Taken Unknown] nitroglycerin 0.4 mg sublingual tablet 0.4 mg sublingual Q5M PRN Cardiac/Chest Pain 30 days #30 tabs 11/03/22 [Rx Last Taken Unknown] guaifenesin 1,200 mg tablet, extended release 12 hr 1,200 mg PO Q12H #60 tabs 11/08/22 [Rx Last Taken Unknown] nystatin 100,000 unit/mL oral suspension 5 ml mucous membrane TID #250 mL 11/08/22 [Rx Last Taken Unknown] amlodipine 2.5 mg tablet 2.5 mg PO DAILY #90 tabs 11/20/22 [Rx Last Taken Unknown] albuterol sulfate 90 mcg/actuation aerosol inhaler 2 puff inhalation Q4H PRN shortness of breath or wheezing #8.5 grams 12/07/22 [Rx Last Taken Unknown] paroxetine HCl 20 mg tablet 30 mg PO BID Check with primary doctor 12/07/22 [History Last Taken Unknown] levofloxacin 500 mg tablet 500 mg PO DAILY #6 tabs 12/26/22 [Rx Last Taken Unknown] prednisone 50 mg tablet 50 mg PO DAILY 5 days #5 tabs 12/26/22 [Rx Last Taken Unknown] Allergy/AdvReac Type Severity Reaction Status Date / Time donepezil Allergy Severe shortness Verified 01/13/23 06:25 of breath risperidone Allergy Severe Confusion Verified 01/13/23 06:25 Sulfa (Sulfonamide Allergy Swelling Verified 01/13/23 06:25 Antibiotics) celecoxib [From Celebrex] AdvReac Severe Swelling Verified 01/13/23 06:25 dextromethorphan AdvReac Severe hallucinati Verified 01/13/23 06:25 [From Delsym] on adhesive AdvReac blisters Verified 01/13/23 06:25 codeine AdvReac Itching Verified 01/13/23 06:25 levofloxacin [From Levaquin] AdvReac pain in Verified 01/13/23 06:25 legs and swelling lisinopril AdvReac cough Verified 01/13/23 06:25 oxycodone [Oxycodone] AdvReac Itching Verified 01/13/23 06:25 oxycodone HCl [From Percocet] AdvReac Itching Verified 01/13/23 06:25 Penicillins AdvReac heart Verified 01/13/23 06:25 palpitations prochlorperazine edisylate AdvReac Low blood Verified 01/13/23 06:25 [From Compazine] pressure prochlorperazine maleate AdvReac Low blood Verified 01/13/23 06:25 [From Compazine] pressure tramadol HCl [From Ultram] AdvReac Itching Verified 01/13/23 06:25 Family History Mother Arthritis CAD (coronary artery disease) Father Arthritis High cholesterol CAD (coronary artery disease) Sister Diabetes High cholesterol Hypertension Brother Diabetes High cholesterol Hypertension Surgical History H/O aortic valve replacement History of back surgery History of foot surgery History of hysterectomy History of mechanical aortic valve replacement (~10/07/13) History of sinus surgery Social History household members: spouse number of children: 2 Smoking Status: Never smoker alcohol intake: never substance use type: does not use caffeine: Yes Type: coffee what type of physical activity do you participate in: none seatbelt use: always do you feel safe at home: Yes EXAM Physical Exam Const Vital Signs: 01/13/23 06:18 Temperature 96.6 F L Temperature Source Temporal Pulse Rate 63 Respiratory Rate 17 Blood Pressure 156/68 H Blood Pressure Mean 97 Pulse Ox 96 Oxygen Delivery Method Nasal Cannula Oxygen Flow Rate (L/min) 2 [facility] [place] Narrative Medical decision making narrative: HISTORY OF PRESENT ILLNESS: 77-year-old female here with concern for epistaxis. She states she started bleeding this morning. Notes she feels postnasal drip. No cough, no choking, no hemoptysis, no chest pain. Notes her last dose of warfarin was yesterday. REVIEW OF SYSTEMS: Pertinent positives: Nosebleeding Pertinent negatives: Lightheadedness, dizziness, fatigue PHYSICAL EXAM: Nursing triage notes reviewed, Vital signs reviewed Constitutional: please see mdm HENT: MMM, dried blood noted in left nares, no obvious posterior oropharyngeal clotting Eyes: Pupils equal round and reactive to light, Extraocular muscles intact Neck: No stridor, no JVD, full neck ROM Lungs: Clear to auscultation, No wheezing or rales. No increased work of breathing, no conversational dyspnea, no accessory muscle use, no nasal flaring. No respiratory distress noted Heart: Regular rate and rhythm, No murmurs, No rubs and No gallops, 2+ distal pulses (radial, femoral, posterior tibial) in all extremities MEDICAL DECISION MAKING: Chief Complaint: Nosebleed External records reviewed: Factors affecting care: On warfarin secondary to A-fib Social determinants of health: Elderly History obtained from others: Patient's Consults: None ALL IMAGES (IF OBTAINED) HAVE BEEN PERSONALLY REVIEWED AND INTERPRETED BY MYSELF. [facility] Narrative: No obvious epistaxis here. No need for intervention. No signs of anemia. Patient is hemodynamically stable on her baseline oxygen. I suspect patient is having epistaxis secondary to dryness from chronic oxygen use. Observe the patient for approximately 1 and half hours without bleeding. Gave strict return precautions and follow-up instructions. The patient and/or family, caregivers express understanding. The patient and/or family, caregivers agrees with the plan. Total critical care time today provided was at least 0 minutes. This excludes separately billable procedures. Critical care time (if documented) is secondary to the patient having high probability of clinically significant/life threatening deterioration in the patient's condition which required my urgent intervention. Shared decision making: I will have a discussion with the patient and or visitors regarding risk/benefits of further testing or admission. They will be made aware of of the risk/benefits inherent in this decision they will be given the opportunity to voice understanding. Discharge Plan Triage Chief Complaint: Nosebleed ED Provider: Vishal Grant Dx/Rx/DC Orders Clinical Impression: Epistaxis, Warfarin anticoagulation Prescriptions: No Action cholecalciferol (vitamin D3) 50,000 unit capsule 50,000 unit PO FR ferrous sulfate 325 mg (65 mg iron) tablet 325 mg PO BID Label Comments: TAKE 1 TABLET BY MOUTH TWICE DAILY WITH MEALS amlodipine 2.5 mg tablet 2.5 mg PO DAILY Qty: 90 3RF albuterol sulfate 90 mcg/actuation HFA aerosol inhaler 2 puff inhalation Q4H PRN (Reason: shortness of breath or wheezing) Qty: 8.5 6RF Rx Instructions: administer with spacer nystatin 100,000 unit/mL suspension 5 ml mucous membrane TID Qty: 250 1RF Rx Instructions: swish and swallow 5 cc three times per day for 10 days guaifenesin 1,200 mg tablet extended release 12hr 1,200 mg PO Q12H Qty: 60 6RF pantoprazole 40 MG tablet 40 mg PO BID Label Comments: stomach lorazepam 0.5 MG tablet 0.5 mg PO BID PRN (Reason: ANXIETY) Label Comments: anxiety bupropion HCl 150 MG tablet extended release 24 hr 150 mg PO DAILY Label Comments: depression potassium chloride 20 MEQ tablet 20 meq PO DAILY montelukast 10 MG tablet 10 mg PO QHS furosemide 40 MG tablet 40 mg PO DAILY Qty: 0 0RF Hold Instructions: Resume on 10/25/22. acetaminophen 650 MG tablet extended release 650 mg PO Q6H PRN (Reason: BACK PAIN) famotidine 20 mg tablet 20 mg PO DAILY PRN (Reason: gerd) Label Comments: TAKE 1 TABLET BY MOUTH AT BEDTIME NEEDED paroxetine HCl 20 mg tablet 30 mg PO BID albuterol sulfate 2.5 MG/3 ML solution for nebulization 2.5 mg inhalation Q4H PRN Qty: 25 0RF Rx Instructions: Use q4 hours and PRN for wheezing amiodarone 200 mg tablet 100 mg PO DAILY ezetimibe [Zetia] 10 mg tablet 10 mg PO DAILY warfarin 2.5 mg Tablet 2.5 mg PO DAILY metoprolol succinate 100 mg Tablet Extended Release 24 Hr 100 mg PO DAILY 30 Days Qty: 30 2RF nitroglycerin 0.4 mg Tablet, Sublingual 0.4 mg sublingual Q5M PRN (Reason: Cardiac/Chest Pain) 30 Days Qty: 30 0RF aspirin 81 mg Tablet,Delayed Release (Dr/Ec) 81 mg PO BREAKFAST 30 Days Qty: 30 2RF prednisone 50 mg tablet 50 mg PO DAILY 5 Days Qty: 5 0RF levofloxacin 500 mg tablet 500 mg PO DAILY Qty: 6 0RF triamcinolone acetonide [Nasacort] 55 mcg aerosol,spray 1 spray INTRANASAL DAILY Qty: 16.9 6RF fluticasone furoate-vilanterol [Breo Ellipta] 200-25 mcg/dose blister with device 1 inh inhalation DAILY Qty: 60 11RF pravastatin 80 mg tablet 80 mg PO QHS Qty: 90 3RF Spiriva Respimat 2.5 mcg/actuation mist 2 puff inhalation QDAY Qty: 3 3RF Rx Instructions: administer at approximately the same time(s) each day Primary Care Provider: Harley Cornejo Referrals: Harley Cornejo MD [Primary Care Provider] - Activity Restrictions/Additional Instructions: On warfarin use thank you for trusting us with your care today! Please take Tylenol (2 pills, 650 mg) for aches and pains or headache. If you develop nosebleeding. Please hold pressure for approximate 10 to 15 minutes. Pressure should be at the very tip of the nose. Should be very firm and slightly painful. If this does not work please blow your nose completely to remove all blood clots and debris and apply a generous spray of Afrin. Continue to hold pressure for approximate 10 to 15 minutes. These 2 interventions do not jono your bleeding please return to the emergency department for further evaluation and treatment. Please return to the emergency department if your symptoms change or worsen. Specifically if you develop lightheadedness, dizziness, fatigue, chest pain, palpitations (heart racing), shortness of breath. Please follow with your primary care physician for further outpatient evaluation and management. Disposition Disposition: Home, Self Care Discharge Date/Time: 01/13/23 07:59
--- NOTE | 2023-01-13 07:42 | ED.RN ---
NO MEDICATIONS PULLED OR ADMINISTERED FOR THIS PATIENT DUE TO NOT ACTIVELY HAVING NOSE BLEED.
[2023-01-13] MEDS: Oxymetazoline 0.05% 1 SPRAY SPRAY.BTL NASAL (07:58)
== END 2023-01-13 07:59 | disposition home or self-care (01) ==
PROVIDERS: Emergency Provider Emergency Medicine; PCP Family Medicine; Visit Provider Emergency Medicine
DX: R04.0 Epistaxis (principal); I13.0 Hypertensive heart and chronic kidney disease with heart failure and stage 1 through stage 4 chronic kidney disease, or unspecified chronic kidney disease; I50.32 Chronic diastolic (congestive) heart failure; I48.91 Unspecified atrial fibrillation; N18.2 Chronic kidney disease, stage 2 (mild); I25.10 Atherosclerotic heart disease of native coronary artery without angina pectoris; E78.5 Hyperlipidemia, unspecified; K21.9 Gastro-esophageal reflux disease without esophagitis; F32.A Depression, unspecified; F41.9 Anxiety disorder, unspecified; Z79.899 Other long term (current) drug therapy; Z79.51 Long term (current) use of inhaled steroids; Z79.01 Long term (current) use of anticoagulants; Z79.82 Long term (current) use of aspirin; Z95.2 Presence of prosthetic heart valve; Z90.710 Acquired absence of both cervix and uterus; Z99.81 Dependence on supplemental oxygen
CPT/HCPCS: 99284

== ENCOUNTER 2023-03-08 16:14 | Emergency (ER) | payer MEDICARE, OTHER, SELFPAY ==
[2023-03-08 16:17] VITALS: BP 133/67; PULSE 64; RESP 24; TEMP 36.5; O2SAT 98
[2023-03-08 16:27] VITALS: O2SAT 98
--- NOTE | 2023-03-08 16:56 | EKG12_ITS ---
Test Reason : SOB Blood Pressure : / mmHG Vent. Rate : 060 BPM Atrial Rate : 060 BPM P-R Int : 192 ms QRS Dur : 076 ms QT Int : 440 ms P-R-T Axes : 000 -06 041 degrees QTc Int : 440 ms Normal sinus rhythm Normal ECG Confirmed by CHERELLE MAC, MARTIN ([id number]), social media editor HILDA WINTER ([id number]) on 03/12/2023 8:25:14 AM Referred By: Confirmed By:TOM VILLARREAL MD
--- NOTE | 2023-03-08 16:59 | EDS_ITS ---
HPI History of Present Illness Chief Complaint: Shortness of Breath Narrative Narrative: 7-year-old female with history of paroxysmal A-fib, CHF, recurrent Pseudomonas pneumonia, COPD on 4 L of oxygen at baseline, anticoagulated on Coumadin presenting with shortness of breath for 3 days. She has a productive cough. She has not had a fever that she knows of. She does not have any nausea or vomiting. She is having abdominal pain. She does not have a lot of swelling in her legs but she does get it from time to time. Patient was checking her pulses at home and noted that her pulse was in the 50s and 60s. She states it went up to the 80s at 1 point but did not go any higher than that. She did not have any chest pain with the heart rate. Blood pressure has been okay. Her pulse ox has been okay at home as well. [facility] Medical History (Reviewed 02/05/23 @ 11:49 by Kleber Real SENIOR ENVIRONMENTAL CONSULTANT, SENIOR ENVIRONMENTAL CONSULTANT-C) Allergic rhinitis Aneurysm, thoracic aortic Anxiety Aortic stenosis Asthma Atherosclerotic heart disease of [place] coronary artery without angina pectoris Bronchiectasis CAP (community acquired pneumonia) Chronic a-fib Chronic anticoagulation Chronic diastolic heart failure Chronic sinusitis CKD (chronic kidney disease), stage II Cough Depression Essential hypertension Fatigue GERD (gastroesophageal reflux disease) Hemoptysis Hiatal hernia History of cardioversion (~07/08/20) Hyperlipidemia Hypertension Hypoxemia 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 Nonrheumatic aortic valve regurgitation Nonspecific chest pain NSTEMI, initial episode of care Obesity Palpitations Severe sepsis Syncope and collapse Home Medications pantoprazole 40 mg tablet,delayed release 40 mg PO BID ACID REFLUX 01/14/15 [History Last Taken 07/07/20] bupropion HCl 150 mg 24 hr tablet, extended release 150 mg PO DAILY DEPRESSION 11/15/15 [History Last Taken 07/07/20] montelukast 10 mg tablet 10 mg PO QHS ALLERGIES 05/03/17 [History Last Taken 07/06/20] potassium chloride 20 mEq tablet,extended release(part/cryst) 20 meq PO DAILY SUPPLEMENT 05/03/17 [History Last Taken 07/06/20] lorazepam 0.5 mg tablet 0.5 mg PO BID PRN ANXIETY 09/04/17 [History Last Taken 07/07/20] furosemide 40 mg tablet 40 mg PO DAILY WATER PILL ##0 12/06/17 [Rx Last Taken 07/06/20] cholecalciferol (vitamin D3) 1,250 mcg (50,000 unit) capsule 50,000 unit PO FR SUPPLEMENT 06/16/19 [History Last Taken 06/25/20] acetaminophen 650 mg tablet,extended release 650 mg PO Q6H PRN BACK PAIN 07/07/20 [History Last Taken 07/07/20] albuterol sulfate 2.5 mg/3 mL (0.083 %) solution for nebulization 2.5 mg (3 mL) inhalation Q4H PRN #25 vials 05/21/21 [Rx Last Taken Unknown] triamcinolone acetonide 55 mcg nasal spray aerosol (Nasacort) 1 spray intranasal DAILY #16.9 mL 06/10/21 [Rx Last Taken Unknown] famotidine 20 mg tablet 20 mg PO DAILY PRN gerd 11/29/21 [History Last Taken Unknown] ferrous sulfate 325 mg (65 mg iron) tablet 325 mg PO BID Check with primary doctor 11/29/21 [History Last Taken Unknown] fluticasone furoate 200 mcg-vilanterol 25 mcg/dose inhalation powder (Breo Ellipta) 1 inh inhalation DAILY #60 ea 08/07/22 [Rx Last Taken Unknown] pravastatin 80 mg tablet 80 mg PO QHS CHOLESTEROL LOWERING #90 tabs 09/25/22 [Rx Last Taken Unknown] tiotropium bromide 2.5 mcg/actuation mist for inhalation (Spiriva Respimat) 2 puff inhalation QDAY #3 ea 10/17/22 [Rx Last Taken Unknown] amiodarone 200 mg tablet 100 mg PO DAILY Check with primary doctor 10/20/22 [History Last Taken Unknown] ezetimibe 10 mg tablet (Zetia) 10 mg PO DAILY Check with primary doctor 10/20/22 [History Last Taken Unknown] warfarin 2.5 mg tablet 2.5 mg PO DAILY Check with primary doctor 10/20/22 [History Last Taken Unknown] aspirin 81 mg tablet,delayed release 81 mg PO BREAKFAST 30 days #30 tabs 11/03/22 [Rx Last Taken Unknown] metoprolol succinate 100 mg tablet,extended release 24 hr 100 mg PO DAILY 30 days #30 tabs 11/03/22 [Rx Last Taken Unknown] nitroglycerin 0.4 mg sublingual tablet 0.4 mg sublingual Q5M PRN Cardiac/Chest Pain 30 days #30 tabs 11/03/22 [Rx Last Taken Unknown] amlodipine 2.5 mg tablet 2.5 mg PO DAILY #90 tabs 11/20/22 [Rx Last Taken Unknown] paroxetine HCl 20 mg tablet 30 mg PO DAILY Check with primary doctor 12/07/22 [History Last Taken Unknown] albuterol sulfate 90 mcg/actuation aerosol inhaler 2 puff inhalation Q6H PRN shortness of breath or wheezing 03/08/23 [History Last Taken Unknown] baclofen 10 mg tablet 10 mg PO Q8H PRN muscle spasm 03/08/23 [History Last Taken Unknown] ergocalciferol (vitamin D2) 1,250 mcg (50,000 unit) capsule 1,250 mcg PO QWEEK 03/08/23 [History Last Taken Unknown] pregabalin 25 mg capsule 25 mg PO QHS 03/08/23 [History Last Taken Unknown] Allergy/AdvReac Type Severity Reaction Status Date / Time donepezil Allergy Severe shortness Verified 02/05/23 11:36 of breath risperidone Allergy Severe Confusion Verified 02/05/23 11:36 Sulfa (Sulfonamide Allergy Swelling Verified 02/05/23 11:36 Antibiotics) celecoxib [From Celebrex] AdvReac Severe Swelling Verified 02/05/23 11:36 dextromethorphan AdvReac Severe hallucinati Verified 02/05/23 11:36 [From Delsym] on adhesive AdvReac blisters Verified 02/05/23 11:36 codeine AdvReac Itching Verified 02/05/23 11:36 levofloxacin [From Levaquin] AdvReac pain in Verified 02/05/23 11:36 legs and swelling lisinopril AdvReac cough Verified 02/05/23 11:36 oxycodone [Oxycodone] AdvReac Itching Verified 02/05/23 11:36 oxycodone HCl [From Percocet] AdvReac Itching Verified 02/05/23 11:36 Penicillins AdvReac heart Verified 02/05/23 11:36 palpitations prochlorperazine edisylate AdvReac Low blood Verified 02/05/23 11:36 [From Compazine] pressure prochlorperazine maleate AdvReac Low blood Verified 02/05/23 11:36 [From Compazine] pressure tramadol HCl [From [employer]] AdvReac Itching Verified 02/05/23 11:36 Family History (Reviewed 02/05/23 @ 11:49 by Kleber Real SENIOR ENVIRONMENTAL CONSULTANT, SENIOR ENVIRONMENTAL CONSULTANT-C) Mother Arthritis CAD (coronary artery disease) Father Arthritis High cholesterol CAD (coronary artery disease) Sister Diabetes High cholesterol Hypertension Brother Diabetes High cholesterol Hypertension Surgical History (Reviewed 02/05/23 @ 11:49 by Kleber Real SENIOR ENVIRONMENTAL CONSULTANT, SENIOR ENVIRONMENTAL CONSULTANT-C) H/O aortic valve replacement History of back surgery History of foot surgery History of hysterectomy History of mechanical aortic valve replacement (~10/07/13) History of sinus surgery Social History (Reviewed 02/05/23 @ 11:49 by Kleber Real SENIOR ENVIRONMENTAL CONSULTANT, SENIOR ENVIRONMENTAL CONSULTANT-C) household members: spouse number of children: 2 Smoking Status: Never smoker alcohol intake: never substance use type: does not use caffeine: Yes Type: coffee what type of physical activity do you participate in: none seatbelt use: always do you feel safe at home: Yes ROS ROS ED Constitutional Constitutional ED: Denies chills or fever(s) Eyes Eyes: Denies change in vision or diplopia ENT ENT ED: Denies rhinorrhea or sore throat Cardiovascular Cardiovascular: Denies chest pain or palpitations Respiratory/Chest Respiratory/Chest: Reports cough and dyspnea Gastrointestinal Gastrointestinal: Denies abdominal pain, nausea, vomiting or other Genitourinary Genitourinary ED: Denies dysuria or hematuria Musculoskeletal Musculoskeletal: Denies arthralgias Integumentary Denies abscess Neurologic Neurologic: Denies headache(s) or paresthesias Psychiatric Psychiatric: Denies anxiety or depression EXAM Physical Exam Const Vital Signs: 03/08/23 16:17 03/08/23 16:27 03/08/23 16:16 Temperature 97.7 F L Temperature Source Temporal Pulse Rate 64 Respiratory Rate 24 H Respiratory Effort Normal Non-Labored Respiratory Depth Normal Respiratory Pattern Normal Blood Pressure 133/67 H Blood Pressure Mean 89 Pulse Ox 98 Oxygen Delivery Method Nasal Cannula Nasal Cannula Nasal Cannula Oxygen Flow Rate (L/min) 4 4 Fraction of Inspired Oxygen (FIO2) 4 03/08/23 16:56 Temperature Temperature Source Pulse Rate Respiratory Rate Respiratory Effort Respiratory Depth Respiratory Pattern Blood Pressure Blood Pressure Mean Pulse Ox Oxygen Delivery Method Nasal Cannula Oxygen Flow Rate (L/min) 4 Fraction of Inspired Oxygen (FIO2) Positive well nourished HEENT Reports dry mucous membranes atraumatic Mouth ED: Yes dry mucous membranes Mouth: dry mucous membranes Eyes PERRL and EOMs intact bilaterally Neck no lymphadenopathy and supple Resp normal respiratory effort Auscultation: rhonchi Cardio regular rate and regular rhythm GI non-tender and non-distended Extremity General Extremety ED: Negative for edema or tenderness General Extremity: Negative for edema Neuro oriented x3, CN's II-XII intact bilaterally and no sensory deficits noted Sensorium / Orientation: alert Motor Exam: general weakness Psych mental status grossly normal MDM MDM MDM Narrative Medical decision making narrative: Patient with dyspnea and generalized fatigue. Differential includes acute coronary syndrome, CHF, COPD, pneumonia, dehydration, electrolyte abnormalities, anemia, neural etiology. CBC will be obtained to assess white blood cell count, hemoglobin, platelets. To assess renal function electrolytes. PT/INR because the patient is on Coumadin and assess her INR level. High-sensitivity troponin and EKG will be obtained to rule out ischemia. BNP to rule out CHF. COVID and flu swabs will be obtained. Chest x-ray will be obtained to rule out CHF or pneumonia. CBC does not show leukocytosis. Hemoglobin macular stable. Platelets are normal. BMP is normal. High-sensitivity troponin 18. BNP 135 and this is normal for her. Chest x-ray my interpretation shows no acute process. Radiologist interprets this and agrees. EKG normal sinus rhythm with a ventricular of 60 bpm without sign of ischemic change or ectopy on my inte rpretation. Patient on her baseline oxygen and she is not wheezing. She is well-appearing with normal vital signs. At this point I think she can be discharged home Impression: 1. Dyspnea Lab Data Labs: Laboratory Results - last 24 hr 03/08/23 17:20 WBC 6.9 RBC 4.30 Hgb 11.5 L Hct 40.0 MCV 93.0 MCH 26.7 L MCHC 28.8 L RDW Std Deviation 50.0 H RDW Coeff of Loki 14.6 Plt Count 298 MPV 10.2 Immature Gran % (Auto) 0.300 Neut % (Auto) 73.7 H Lymph % (Auto) 10.[address] [facility] % (Auto) 8.1 Eos % (Auto) 6.9 H Baso % (Auto) 0.6 Absolute Neuts (auto) 5.1 Absolute Lymphs (auto) 0.72 L Nucleated RBC % 0 PT 18.6 H INR 1.5 Sodium 142 Potassium 3.5 Chloride 101 Carbon Dioxide 40.0 H Anion Gap 1 L BUN 22 H Creatinine 0.84 Est GFR (MDRD) Af Amer 85 Est GFR (MDRD) Non-Af 70 BUN/Creatinine Ratio 26.3 H Glucose 93 Calcium 9.1 Troponin I High Sens 18 B-Natriuretic Peptide 135.0 H Radiography Diagnostic Testing: Clinical Impression(s) from Imaging Studies Chest X-Ray 03/08/23 17:26 IMPRESSION: Incomplete expansion of the lungs. Subsegmental atelectasis or scarring in the lung bases. Electronically Signed: Berny Starr MD at 17:48 EDT , Discharge Plan Triage Chief Complaint: Shortness of Breath ED Provider: Forrest Smiley Dx/Rx/DC Orders Instructions: ED Dyspnea Prescriptions: No Action cholecalciferol (vitamin D3) 50,000 unit capsule 50,000 unit PO FR ferrous sulfate 325 mg (65 mg iron) tablet 325 mg PO BID Patient Comments: TAKE 1 TABLET BY MOUTH TWICE DAILY WITH MEALS amlodipine 2.5 mg tablet 2.5 mg PO DAILY Qty: 90 3RF pantoprazole 40 MG tablet 40 mg PO BID Patient Comments: stomach lorazepam 0.5 MG tablet 0.5 mg PO BID PRN (Reason: ANXIETY) Patient Comments: anxiety bupropion HCl 150 MG tablet extended release 24 hr 150 mg PO DAILY Patient Comments: depression potassium chloride 20 MEQ tablet 20 meq PO DAILY montelukast 10 MG tablet 10 mg PO QHS furosemide 40 MG tablet 40 mg PO DAILY Qty: 0 0RF Hold Instructions: Resume on 10/25/22. acetaminophen 650 MG tablet extended release 650 mg PO Q6H PRN (Reason: BACK PAIN) famotidine 20 mg tablet 20 mg PO DAILY PRN (Reason: gerd) Patient Comments: TAKE 1 TABLET BY MOUTH AT BEDTIME NEEDED paroxetine HCl 20 mg tablet 30 mg PO DAILY albuterol sulfate 2.5 MG/3 ML solution for nebulization 2.5 mg inhalation Q4H PRN Qty: 25 0RF Rx Instructions: Use q4 hours and PRN for wheezing amiodarone 200 mg tablet 100 mg PO DAILY ezetimibe [Zetia] 10 mg tablet 10 mg PO DAILY warfarin 2.5 mg Tablet 2.5 mg PO DAILY metoprolol succinate 100 mg Tablet Extended Release 24 Hr 100 mg PO DAILY 30 Days Qty: 30 2RF nitroglycerin 0.4 mg Tablet, Sublingual 0.4 mg sublingual Q5M PRN (Reason: Cardiac/Chest Pain) 30 Days Qty: 30 0RF aspirin 81 mg Tablet,Delayed Release (Dr/Ec) 81 mg PO BREAKFAST 30 Days Qty: 30 2RF ergocalciferol (vitamin D2) 1,250 mcg (50,000 unit) capsule 1,250 mcg PO QWEEK Patient Comments: TAKE 1 CAPSULE BY MOUTH ONCE A WEEK pregabalin 25 mg capsule 25 mg PO QHS baclofen 10 mg tablet 10 mg PO Q8H PRN (Reason: muscle spasm) Patient Comments: TAKE 1 TABLET BY MOUTH THREE TIMES DAILY NEEDED FOR MUSCLE SPASMS albuterol sulfate 90 mcg/actuation HFA aerosol inhaler 2 puff inhalation Q6H PRN (Reason: shortness of breath or wheezing) Rx Instructions: administer with spacer triamcinolone acetonide [Nasacort] 55 mcg aerosol,spray 1 spray INTRANASAL DAILY Qty: 16.9 6RF fluticasone furoate-vilanterol [Breo Ellipta] 200-25 mcg/dose blister with device 1 inh inhalation DAILY Qty: 60 11RF pravastatin 80 mg tablet 80 mg PO QHS Qty: 90 3RF Spiriva Respimat 2.5 mcg/actuation mist 2 puff inhalation QDAY Qty: 3 3RF Rx Instructions: administer at approximately the same time(s) each day Primary Care Provider: Harley Cornejo Referrals: Harley Cornejo MD [Primary Care Provider] - Disposition Disposition: Home, Self Care
--- NOTE | 2023-03-08 17:26 | RAD_ITS ---
STUDY: X-RAY CHEST REASON FOR EXAM: Female, 77 years old. chest pain TECHNIQUE: Single AP portable view of the chest. COMPARISON: 12/26/2022. FINDINGS: Moderate lung volumes. There is elevation of the right hemidiaphragm, stable. Mild scarring or subsegmental atelectasis in both lung bases. Cannot exclude small effusions. Normal size heart. Previous CABG. Normal mediastinum and chica. Normal visualized pulmonary arteries. There is atherosclerotic calcification of the aortic arch with tortuosity. Stable moderate hiatal hernia. There are diffuse degenerative changes of the visualized thoracic spine. Stable scoliosis. Normal visualized ribs, clavicles, and shoulders. There is no demonstrated abnormality of the visualized soft tissue structures of the upper abdomen. RAD/Chest 1 View (Portable) IMPRESSION: Incomplete expansion of the lungs. Subsegmental atelectasis or scarring in the lung bases. Electronically Signed: Berny Starr MD at 17:48 EDT ,
[2023-03-08 17:36] LABS: Absolute Lymphocyte Count 0.72 X10^3/uL (0.83-4.51); Absolute Neutrophil Count 5.1 X10^3/uL (2.0-7.7); Basophil# 0.04 X10^3/uL; Basophil% 0.6 % (0-1); Eosinophil# 0.48 X10^3/uL; Eosinophils% 6.9 % (0-5); Hemoglobin 11.5 g/dL (12.0-15.0); Lymphocyte # 0.72 X10^3/ul (0.83-4.51); Lymphocyte % 10.4 % (19-41); Mean Corp Hgb Conc 28.8 g/dL (32-36); Mean Corpuscular Hgb 26.7 pg (27.0-32.0); Mean Platelet Vol. 10.2 fl (6.2-12.0); Monocyte# 0.56 X10^3/uL; Monocyte% 8.1 % (0-10); NRBC Flagged by Analyzer 0 % (0-5); Neutrophil # 5.12 X10^3/uL (2.7-7.7); Neutrophil % 73.7 % (47-70); Platelet Count 298 K/mm3 (150-450); RBC Distribution Width CV 14.6 % (11.6-14.6); White Blood Count 6.9 K/mm3 (4.4-11.0)
[2023-03-08 17:46] LABS: International Normalized Ratio 1.5; Prothrombin Time (Protime)PT. 18.6 SECONDS (11.7-14.9)
[2023-03-08 17:56] LABS: Anion Gap 1 (5-15); BUN 22 mg/dL (7-18); BUN/Creat Ratio 26.3 RATIO (10-20); Calcium,Total 9.1 mg/dL (8.5-10.1); Chloride 101 mmol/L (98-107); Creatinine, Serum 0.84 mg/dL (0.55-1.02); EST Glomerular Filtration Rate 70 mL/min (>60); Est Glom Filt Rate - Afr Amer 85 mL/min (>60); Glucose 93 mg/dL (74-106); Potassium 3.5 mmol/L (3.5-5.1); Sodium Level 142 mmol/L (136-145); Troponin-I HS 18 pg/mL (3.0-54.0)
[2023-03-08 19:32] VITALS: BP 135/62; PULSE 65; RESP 20; O2SAT 96
== END 2023-03-08 19:33 | disposition home or self-care (01) ==
PROVIDERS: Emergency Provider Student in an Organized Health Care Education/Training Program; PCP Family Medicine; Visit Provider Student in an Organized Health Care Education/Training Program
DX: R06.02 Shortness of breath (principal); J44.9 Chronic obstructive pulmonary disease, unspecified; I50.32 Chronic diastolic (congestive) heart failure; I13.0 Hypertensive heart and chronic kidney disease with heart failure and stage 1 through stage 4 chronic kidney disease, or unspecified chronic kidney disease; I48.0 Paroxysmal atrial fibrillation; R10.9 Unspecified abdominal pain; Z99.81 Dependence on supplemental oxygen; E78.5 Hyperlipidemia, unspecified; I25.10 Atherosclerotic heart disease of native coronary artery without angina pectoris; N18.2 Chronic kidney disease, stage 2 (mild); Z79.01 Long term (current) use of anticoagulants; Z79.899 Other long term (current) drug therapy
CPT/HCPCS: 71045; 80048; 83880; 84484; 85025; 85610; 87428; 93005; 99285; A4216

== ENCOUNTER 2023-04-11 15:47 | Emergency (ER) | payer MEDICARE, OTHER, SELFPAY ==
[2023-04-11 15:50] VITALS: BP 137/65; PULSE 81; RESP 22; TEMP 36.7; O2SAT 93
--- NOTE | 2023-04-11 16:57 | EKG12_ITS ---
Test Reason : SOB Blood Pressure : / mmHG Vent. Rate : 063 BPM Atrial Rate : 326 BPM P-R Int : 000 ms QRS Dur : 074 ms QT Int : 436 ms P-R-T Axes : 000 -05 033 degrees QTc Int : 446 ms Normal sinus rhythm Otherwise normal ECG Confirmed by TICO MAC, JARRED ([id number]), manuscript editor HILDA WINTER ([id number]) on 04/12/2023 1:17:18 PM Referred By: ELISABETH Confirmed By:JARRED DOSHI MD
--- NOTE | 2023-04-11 16:59 | EDS_ITS ---
HPI History of Present Illness Chief Complaint: Shortness of Breath Narrative Narrative: 77-year-old female past medical history of COPD, wears 4 L of oxygen at home presents with her because of shortness of breath that started today. Although the triage note stated 2 days ago, she states that she began having problems breathing today, and it felt like her nasal cannula oxygen was not giving her any oxygen. Her noted that she had small amount of dried blood from the nosebleed she experienced this morning. She does have bilateral nasal polyps as well. He checked the tubing and the nasal cannula and oxygen was flowing. She complained that she felt like she was not getting oxygen and felt short of breath in the center of my chest. Over the last year, they have increased her nasal cannula oxygen from 3 L/min to 4 L/min. She has had recent cough, but no fever or chills. 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 Nonrheumatic aortic valve regurgitation Nonspecific chest pain NSTEMI, initial episode of care Obesity Palpitations Severe sepsis Syncope and collapse Home Medications pantoprazole 40 mg tablet,delayed release 40 mg PO BID ACID REFLUX 01/14/15 [History Last Taken 07/07/20] bupropion HCl 150 mg 24 hr tablet, extended release 150 mg PO DAILY DEPRESSION 11/15/15 [History Last Taken 07/07/20] montelukast 10 mg tablet 10 mg PO QHS ALLERGIES 05/03/17 [History Last Taken 07/06/20] potassium chloride 20 mEq tablet,extended release(part/cryst) 20 meq PO DAILY SUPPLEMENT 05/03/17 [History Last Taken 07/06/20] lorazepam 0.5 mg tablet 0.5 mg PO BID PRN ANXIETY 09/04/17 [History Last Taken 07/07/20] furosemide 40 mg tablet 40 mg PO DAILY WATER PILL ##0 12/06/17 [Rx Last Taken 07/06/20] cholecalciferol (vitamin D3) 1,250 mcg (50,000 unit) capsule 50,000 unit PO FR SUPPLEMENT 06/16/19 [History Last Taken 06/25/20] acetaminophen 650 mg tablet,extended release 650 mg PO Q6H PRN BACK PAIN 07/07/20 [History Last Taken 07/07/20] albuterol sulfate 2.5 mg/3 mL (0.083 %) solution for nebulization 2.5 mg (3 mL) inhalation Q4H PRN #25 vials 05/21/21 [Rx Last Taken Unknown] triamcinolone acetonide 55 mcg nasal spray aerosol (Nasacort) 1 spray intranasal DAILY #16.9 mL 06/10/21 [Rx Last Taken Unknown] famotidine 20 mg tablet 20 mg PO DAILY PRN gerd 11/29/21 [History Last Taken Unknown] ferrous sulfate 325 mg (65 mg iron) tablet 325 mg PO BID Check with primary doctor 11/29/21 [History Last Taken Unknown] fluticasone furoate 200 mcg-vilanterol 25 mcg/dose inhalation powder (Breo Ellipta) 1 inh inhalation DAILY #60 ea 08/07/22 [Rx Last Taken Unknown] pravastatin 80 mg tablet 80 mg PO QHS CHOLESTEROL LOWERING #90 tabs 09/25/22 [Rx Last Taken Unknown] tiotropium bromide 2.5 mcg/actuation mist for inhalation (Spiriva Respimat) 2 puff inhalation QDAY #3 ea 10/17/22 [Rx Last Taken Unknown] amiodarone 200 mg tablet 100 mg PO DAILY Check with primary doctor 10/20/22 [History Last Taken Unknown] ezetimibe 10 mg tablet (Zetia) 10 mg PO DAILY Check with primary doctor 10/20/22 [History Last Taken Unknown] warfarin 2.5 mg tablet 2.5 mg PO DAILY Check with primary doctor 10/20/22 [History Last Taken Unknown] aspirin 81 mg tablet,delayed release 81 mg PO BREAKFAST 30 days #30 tabs 11/03/22 [Rx Last Taken Unknown] metoprolol succinate 100 mg tablet,extended release 24 hr 100 mg PO DAILY 30 days #30 tabs 11/03/22 [Rx Last Taken Unknown] nitroglycerin 0.4 mg sublingual tablet 0.4 mg sublingual Q5M PRN Cardiac/Chest Pain 30 days #30 tabs 11/03/22 [Rx Last Taken Unknown] amlodipine 2.5 mg tablet 2.5 mg PO DAILY #90 tabs 11/20/22 [Rx Last Taken Unknown] paroxetine HCl 20 mg tablet 30 mg PO DAILY Check with primary doctor 12/07/22 [History Last Taken Unknown] albuterol sulfate 90 mcg/actuation aerosol inhaler 2 puff inhalation Q6H PRN shortness of breath or wheezing 03/08/23 [History Last Taken Unknown] baclofen 10 mg tablet 10 mg PO Q8H PRN muscle spasm 03/08/23 [History Last Taken Unknown] ergocalciferol (vitamin D2) 1,250 mcg (50,000 unit) capsule 1,250 mcg PO QWEEK 03/08/23 [History Last Taken Unknown] pregabalin 25 mg capsule 25 mg PO QHS 03/08/23 [History Last Taken Unknown] Allergy/AdvReac Type Severity Reaction Status Date / Time donepezil Allergy Severe shortness Verified 02/05/23 11:36 of breath risperidone Allergy Severe Confusion Verified 02/05/23 11:36 Sulfa (Sulfonamide Allergy Swelling Verified 02/05/23 11:36 Antibiotics) celecoxib [From Celebrex] AdvReac Severe Swelling Verified 02/05/23 11:36 dextromethorphan AdvReac Severe hallucinati Verified 02/05/23 11:36 [From Delsym] on adhesive AdvReac blisters Verified 02/05/23 11:36 codeine AdvReac Itching Verified 02/05/23 11:36 levofloxacin [From Levaquin] AdvReac pain in Verified 02/05/23 11:36 legs and swelling lisinopril AdvReac cough Verified 02/05/23 11:36 oxycodone [Oxycodone] AdvReac Itching Verified 02/05/23 11:36 oxycodone HCl [From Percocet] AdvReac Itching Verified 02/05/23 11:36 Penicillins AdvReac heart Verified 02/05/23 11:36 palpitations prochlorperazine edisylate AdvReac Low blood Verified 02/05/23 11:36 [From Compazine] pressure prochlorperazine maleate AdvReac Low blood Verified 02/05/23 11:36 [From Compazine] pressure tramadol HCl [From Ultram] AdvReac Itching Verified 02/05/23 11:36 Family History Mother Arthritis CAD (coronary artery disease) Father Arthritis High cholesterol CAD (coronary artery disease) Sister Diabetes High cholesterol Hypertension Brother Diabetes High cholesterol Hypertension Surgical History H/O aortic valve replacement History of back surgery History of foot surgery History of hysterectomy History of mechanical aortic valve replacement (~10/07/13) History of sinus surgery Social History household members: spouse number of children: 2 Smoking Status: Never smoker alcohol intake: never substance use type: does not use caffeine: Yes Type: coffee what type of physical activity do you participate in: none seatbelt use: always do you feel safe at home: Yes ROS ROS ED ROS Narrative Constitutional: No fever, no chills. HEENT: No sore throat. No neck pain. No loss of vision. No rhinorrhea. Cardiovascular: No chest pain. No palpitations. No pedal edema. Respiratory: As of cough, shortness of breath today. Abdominal: No abdominal pain. No nausea. No vomiting. Genitourinary: No dysuria. No hematuria. Musculoskeletal: No myalgias. No arthralgias. Neurologic: No headaches. No dizziness. No lightheadedness. Skin: No rash. No change in color. Psychiatric: No depression. No anxiety. EXAM Physical Exam Narrative Exam Narrative: Afebrile. Vital signs noted. HEENT: Normocephalic. Atraumatic. PERRL, EOMI. Neck soft and supple. No point tenderness or step off. Cardiovascular: Regular rate and rhythm. No murmurs, rubs, or gallops appreciated. Respiratory: No tachypnea. Lungs clear to auscultation bilateraly except l occasional diffuse rhonchi. Small amount of dried blood on the outer portion of left nares. No large clot or obstruction noted in bilateral nares. Gastrointestinal: Abdomen soft, nontender, with normoactive bowel sounds. No rebound or guarding. Neurological: Awake. Alert. Nonfocal, nonlateralizing. Skin: No rash. Normal color. No pallor. Musculoskeletal: No pedal edema. Full range of motion extremities. Const Vital Signs: 04/11/23 15:50 04/11/23 17:23 04/11/23 17:37 Temperature 98.1 F Temperature Source Temporal Pulse Rate 81 80 Respiratory Rate 22 H 16 Respiratory Effort Short of Breath Respiratory Pattern Normal Blood Pressure 137/65 H Blood Pressure Mean 89 Pulse Ox 93 Oxygen Delivery Method Nasal Cannula Oxygen Flow Rate (L/min) 3 04/11/23 17:40 04/11/23 17:41 Temperature 98.1 F Temperature Source Temporal Pulse Rate 59 L Respiratory Rate 16 Respiratory Effort Respiratory Pattern Blood Pressure 142/62 H Blood Pressure Mean 88 Pulse Ox 98 Oxygen Delivery Method Room Air Room Air Oxygen Flow Rate (L/min) MDM MDM MDM Narrative Medical decision making narrative: The differential diagnosis would be obstruction of the nasal cannula oxygen, but that was checked at home. She could have had a large nasal clot obstructing, but on examination her nares are patent and there is no active bleeding. She may be having more of a COPD exacerbation. She is satting 93% on nasal cannula oxygen at 3 L here. I will check baseline laboratories including CBC and BMP along with a chest x-ray. Currently, I do feel that she is stable in her COPD. EKG was obtained and interpreted by myself independently as what appears to me as normal sinus rhythm at 63 bpm without ectopy or acute ST changes. No STEMI. I do feel that there is baseline artifact in the rhythm strip. I reviewed her laboratory work and she has a normal white count of 6.1, hemoglobin is normal at 12.0 without evidence of anemia, platelet count normal at 250. Her electrolyte panel is grossly unremarkable with a sodium of 142 and a potassium of 3.6, CO2 is elevated at 38 consistent with her COPD. BUN of 19 with a creatinine of 0.90, glucose normal at 84. Chest x-ray was obtained and interpreted by myself independently as atelectasis but no pneumonia. I do not feel antibiotics are indicated. I reviewed the radiology report which states that there are small bilateral pleural effusions, but confirms my independent interpretation. At this point in time, her oxygen level is normal on her nasal cannula oxygen here. I do not feel she requires observation. I feel she can be discharged safely home with follow-up. Return instructions to the emergency department were reviewed. Disposition is discharged home in stable condition. History & Record Review Discussion w/independent historian: Patient and Family Additional record(s) reviewed:: Prior ED visit and Prior labs Lab Data Attestation: I reviewed the patient's lab results. Labs: Laboratory Results - last 24 hr 04/11/23 17:10 WBC 6.1 RBC 4.40 Hgb 12.0 Hct 41.3 MCV 93.9 MCH 27.3 MCHC 29.1 L RDW Std Deviation 50.1 H RDW Coeff of Loki 14.5 Plt Count 250 MPV 10.2 Immature Gran % (Auto) 0.300 Neut % (Auto) 73.8 H Lymph % (Auto) 12.4 L [place] % (Auto) 8.2 Eos % (Auto) 4.6 Baso % (Auto) 0.7 Absolute Neuts (auto) 4.5 Absolute Lymphs (auto) 0.75 L Nucleated RBC % 0 Sodium 142 Potassium 3.6 Chloride 103 Carbon Dioxide 38.0 H Anion Gap 1 L BUN 19 H Creatinine 0.90 Est GFR (MDRD) Af Amer 78 Est GFR (MDRD) Non-Af 64 BUN/Creatinine Ratio 21.1 H Glucose 84 Calcium 9.3 Radiography Diagnostic Testing: Clinical Impression(s) from Imaging Studies Chest X-Ray 04/11/23 17:43 IMPRESSION: Low lung volume with basilar atelectasis with small right and trace left layering effusions. Electronically Signed: Saad Delgado DO at 18:03 EDT , Discharge Plan Triage Chief Complaint: Shortness of Breath ED Provider: Jose Yap Dx/Rx/DC Orders Clinical Impression: Chronic dyspnea, COPD (chronic obstructive pulmonary disease) Instructions: ED COPD Flare, ED Dyspnea Prescriptions: No Action cholecalciferol (vitamin D3) 50,000 unit capsule 50,000 unit PO FR ferrous sulfate 325 mg (65 mg iron) tablet 325 mg PO BID Patient Comments: TAKE 1 TABLET BY MOUTH TWICE DAILY WITH MEALS amlodipine 2.5 mg tablet 2.5 mg PO DAILY Qty: 90 3RF pantoprazole 40 MG tablet 40 mg PO BID Patient Comments: stomach lorazepam 0.5 MG tablet 0.5 mg PO BID PRN (Reason: ANXIETY) Patient Comments: anxiety bupropion HCl 150 MG tablet extended release 24 hr 150 mg PO DAILY Patient Comments: depression potassium chloride 20 MEQ tablet 20 meq PO DAILY montelukast 10 MG tablet 10 mg PO QHS furosemide 40 MG tablet 40 mg PO DAILY Qty: 0 0RF Hold Instructions: Resume on 10/25/22. acetaminophen 650 MG tablet extended release 650 mg PO Q6H PRN (Reason: BACK PAIN) famotidine 20 mg tablet 20 mg PO DAILY PRN (Reason: gerd) Patient Comments: TAKE 1 TABLET BY MOUTH AT BEDTIME NEEDED paroxetine HCl 20 mg tablet 30 mg PO DAILY albuterol sulfate 2.5 MG/3 ML solution for nebulization 2.5 mg inhalation Q4H PRN Qty: 25 0RF Rx Instructions: Use q4 hours and PRN for wheezing amiodarone 200 mg tablet 100 mg PO DAILY ezetimibe [Zetia] 10 mg tablet 10 mg PO DAILY warfarin 2.5 mg Tablet 2.5 mg PO DAILY metoprolol succinate 100 mg Tablet Extended Release 24 Hr 100 mg PO DAILY 30 Days Qty: 30 2RF nitroglycerin 0.4 mg Tablet, Sublingual 0.4 mg sublingual Q5M PRN (Reason: Cardiac/Chest Pain) 30 Days Qty: 30 0RF aspirin 81 mg Tablet,Delayed Release (Dr/Ec) 81 mg PO BREAKFAST 30 Days Qty: 30 2RF ergocalciferol (vitamin D2) 1,250 mcg (50,000 unit) capsule 1,250 mcg PO QWEEK Patient Comments: TAKE 1 CAPSULE BY MOUTH ONCE A WEEK pregabalin 25 mg capsule 25 mg PO QHS baclofen 10 mg tablet 10 mg PO Q8H PRN (Reason: muscle spasm) Patient Comments: TAKE 1 TABLET BY MOUTH THREE TIMES DAILY NEEDED FOR MUSCLE SPASMS albuterol sulfate 90 mcg/actuation HFA aerosol inhaler 2 puff inhalation Q6H PRN (Reason: shortness of breath or wheezing) Rx Instructions: administer with spacer triamcinolone acetonide [Nasacort] 55 mcg aerosol,spray 1 spray INTRANASAL DAILY Qty: 16.9 6RF fluticasone furoate-vilanterol [Breo Ellipta] 200-25 mcg/dose blister with device 1 inh inhalation DAILY Qty: 60 11RF pravastatin 80 mg tablet 80 mg PO QHS Qty: 90 3RF Spiriva Respimat 2.5 mcg/actuation mist 2 puff inhalation QDAY Qty: 3 3RF Rx Instructions: administer at approximately the same time(s) each day Primary Care Provider: Harley Cornejo Referrals: Harley Cornejo MD [Primary Care Provider] - 3-5 Days if not improving Disposition Disposition: Home, Self Care
[2023-04-11] MEDS: Ipratropium/Albuterol Sulfate 3 ML AMPUL.NEB INHALATION (17:11)
[2023-04-11 17:15] LABS: Absolute Lymphocyte Count 0.75 X10^3/uL (0.83-4.51); Absolute Neutrophil Count 4.5 X10^3/uL (2.0-7.7); Basophil# 0.04 X10^3/uL; Basophil% 0.7 % (0-1); Eosinophil# 0.28 X10^3/uL; Eosinophils% 4.6 % (0-5); Hematocrit 41.3 % (37-47); Lymphocyte # 0.75 X10^3/ul (0.83-4.51); Lymphocyte % 12.4 % (19-41); Mean Corp Hgb Conc 29.1 g/dL (32-36); Mean Corpuscular Hgb 27.3 pg (27.0-32.0); Mean Corpuscular Volume 93.9 fL (81-99); Mean Platelet Vol. 10.2 fl (6.2-12.0); Monocyte% 8.2 % (0-10); NRBC Flagged by Analyzer 0 % (0-5); Neutrophil # 4.48 X10^3/uL (2.7-7.7); Neutrophil % 73.8 % (47-70); Platelet Count 250 K/mm3 (150-450); RBC Distribution Width CV 14.5 % (11.6-14.6); RBC Distribution Width SD 50.1 fl (35.1-43.9); White Blood Count 6.1 K/mm3 (4.4-11.0)
[2023-04-11 17:23] VITALS: PULSE 80; RESP 16
[2023-04-11 17:32] LABS: Anion Gap 1 (5-15); BUN 19 mg/dL (7-18); BUN/Creat Ratio 21.1 RATIO (10-20); Calcium,Total 9.3 mg/dL (8.5-10.1); Chloride 103 mmol/L (98-107); EST Glomerular Filtration Rate 64 mL/min (>60); Est Glom Filt Rate - Afr Amer 78 mL/min (>60); Glucose 84 mg/dL (74-106); Potassium 3.6 mmol/L (3.5-5.1); Sodium Level 142 mmol/L (136-145)
[2023-04-11 17:36] VITALS: BMI 23.1
[2023-04-11 17:40] VITALS: BP 142/62; PULSE 59; RESP 16; TEMP 36.7; O2SAT 98
--- NOTE | 2023-04-11 17:43 | RAD_ITS ---
STUDY: X-RAY CHEST REASON FOR EXAM: Female, 77 years old. shortness of breath TECHNIQUE: Single AP portable view of the chest. COMPARISON: 03/08/2023 FINDINGS: Sternotomy wires are midline. Low lung volume with bilateral basilar atelectasis. Chronic layering right small effusion is present. Trace left effusion is also noted. Normal size heart. Normal mediastinum and chica. Normal visualized pulmonary arteries. There is atherosclerotic calcification of the aortic arch with tortuosity. Normal visualized thoracic spine. Normal visualized ribs, clavicles, and shoulders. There is no demonstrated abnormality of the visualized soft tissue structures of the upper abdomen. RAD/Chest 1 View (Portable) IMPRESSION: Low lung volume with basilar atelectasis with small right and trace left layering effusions. Electronically Signed: Saad Delgado DO at 18:03 EDT ,
[2023-04-11 18:55] VITALS: BP 137/89; PULSE 73; RESP 18; O2SAT 94
== END 2023-04-11 18:56 | disposition home or self-care (01) ==
PROVIDERS: Emergency Provider Emergency Medicine; PCP Family Medicine; Visit Provider Emergency Medicine
DX: R06.00 Dyspnea, unspecified (principal); J44.9 Chronic obstructive pulmonary disease, unspecified; I13.0 Hypertensive heart and chronic kidney disease with heart failure and stage 1 through stage 4 chronic kidney disease, or unspecified chronic kidney disease; I50.32 Chronic diastolic (congestive) heart failure; I48.20 Chronic atrial fibrillation, unspecified; E78.5 Hyperlipidemia, unspecified; N18.2 Chronic kidney disease, stage 2 (mild); I25.10 Atherosclerotic heart disease of native coronary artery without angina pectoris; Z99.81 Dependence on supplemental oxygen; K21.9 Gastro-esophageal reflux disease without esophagitis; F32.A Depression, unspecified; F41.9 Anxiety disorder, unspecified; J45.909 Unspecified asthma, uncomplicated; Z79.899 Other long term (current) drug therapy; Z79.51 Long term (current) use of inhaled steroids; Z79.01 Long term (current) use of anticoagulants; Z95.2 Presence of prosthetic heart valve; Z90.710 Acquired absence of both cervix and uterus
CPT/HCPCS: 71045; 80048; 85025; 93005; 94640; 99283; A4216

== ENCOUNTER 2024-03-10 19:30 | Emergency (ER) | payer MEDICARE, OTHER, SELFPAY ==
[2024-03-10 19:31] VITALS: BP 157/78; PULSE 87; RESP 26; TEMP 36.8; O2SAT 94
[2024-03-10 19:36] VITALS: BMI 22.7
[2024-03-10 19:58] VITALS: O2SAT 99
[2024-03-10 20:04] VITALS: BP 141/74; PULSE 75; RESP 22; TEMP 36.9; O2SAT 98
[2024-03-10 21:00] VITALS: BP 131/68; PULSE 66; RESP 22; TEMP 37.1; O2SAT 100
--- NOTE | 2024-03-10 21:38 | ED.RN ---
Paged [facility] flight control manager nurse for palliative care per Dr Quijano request. Message left for call back.
--- NOTE | 2024-03-10 22:29 | EDS_ITS ---
HPI History of Present Illness Chief Complaint: Shortness of Breath Informant: patient and spouse/S.O. Narrative Narrative: Patient is a 78-year-old female with complex medical history including Lewy body dementia, COPD on 3 to 4 L of oxygen at baseline, coronary artery disease and atrial fibrillation presenting for episode of increased agitation. Patient does follow with palliative medicine and does have diazepam at home. She generally takes a half a pill in the morning and another pill in the evening that split into 2 (early evening and late evening). She gets episodes where she will get more confused and agitated similar to sundowning per the . She had a particularly bad episode tonight. She has been fixed intermittent delusions that she is not at her house or that someone is upstairs in the attic. She had a particularly bad episode tonight and took her on a drive. They decided come to the ER. Patient has since calm down and returned to her baseline. She does follow with neurology. They are not able to get a hold of palliative care at this time. She does have a chronic cough but has been states this is her baseline. Denies any recent change in her appetite, fever, chills or new urinary symptoms. He does not feel that any medical workup is indicated at this time. No report of any falls or head injuries. Patient has no physical complaints at this time. [facility] Medical History Lewy body dementia CKD (chronic kidney disease), stage II NSTEMI, initial episode of care History of cardioversion (~07/08/20) Chronic diastolic heart failure Bronchiectasis Essential hypertension Cough Allergic rhinitis GERD (gastroesophageal reflux disease) Chronic a-fib Hypoxemia Anxiety Chronic anticoagulation Severe sepsis CAP (community acquired pneumonia) Hemoptysis Atherosclerotic heart disease of [place] coronary artery without angina pectoris Syncope and collapse Palpitations Nonspecific chest pain Aneurysm, thoracic aortic Nonrheumatic aortic valve regurgitation Fatigue 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 Chronic sinusitis Asthma Aortic stenosis Obesity Hiatal hernia Depression Hyperlipidemia Hypertension Home Medications ?Medication ?Instructions ?Recorded ?Last Taken ?Type pantoprazole 40 mg tablet,delayed 40 mg PO BID ACID REFLUX 01/14/15 07/07/20 History release bupropion HCl 150 mg 24 hr tablet, 150 mg PO DAILY DEPRESSION 11/15/15 07/07/20 History extended release montelukast 10 mg tablet 10 mg PO QHS ALLERGIES 05/03/17 07/06/20 History potassium chloride 20 mEq 20 meq PO DAILY SUPPLEMENT 05/03/17 07/06/20 History tablet,extended release(part/cryst) furosemide 40 mg tablet 40 mg PO DAILY WATER PILL ##0 12/06/17 07/06/20 Rx acetaminophen 650 mg 650 mg PO Q6H PRN BACK PAIN 07/07/20 07/07/20 History tablet,extended release albuterol sulfate 2.5 mg/3 mL 2.5 mg (3 mL) inhalation Q4H PRN 05/21/21 Unknown Rx (0.083 %) solution for nebulization #25 vials ferrous sulfate 325 mg (65 mg 325 mg PO BID Check with primary 11/29/21 Unknown History iron) tablet doctor aspirin 81 mg tablet,delayed 81 mg PO BREAKFAST 30 days #30 tabs 11/03/22 Unknown Rx release nitroglycerin 0.4 mg sublingual 0.4 mg sublingual Q5M PRN 11/03/22 Unknown Rx tablet Cardiac/Chest Pain 30 days #30 tabs albuterol sulfate 90 mcg/actuation 2 puff inhalation Q6H PRN 03/08/23 Unknown History aerosol inhaler shortness of breath or wheezing diazepam 2 mg tablet See Rx Instructions PO .COMPLEX 06/11/23 Unknown History ipratropium bromide 21 mcg (0.03 2 spray intranasal BID #30 mL 06/11/23 Unknown Rx %) nasal spray loratadine 10 mg tablet 10 mg PO DAILY #90 tabs 06/11/23 Unknown Rx paroxetine HCl 30 mg tablet 30 mg PO DAILY 08/06/23 Unknown History warfarin 2.5 mg tablet 5 mg PO SUTUTHSA Check with 08/06/23 Unknown History primary doctor warfarin 3 mg tablet 3 mg PO MOWEFR 08/06/23 Unknown History ezetimibe 10 mg tablet See Rx Instructions .Route 08/27/23 Unknown Rx .COMPLEX #90 TABLETS pravastatin 80 mg tablet See Rx Instructions .Route 08/27/23 Unknown Rx .COMPLEX #90 tabs amiodarone 200 mg tablet 100 mg (1/2 x 200 mg) PO DAILY #45 09/25/23 Unknown Rx tabs amlodipine 2.5 mg tablet 2.5 mg PO DAILY #90 tabs 11/29/23 Unknown Rx donepezil 5 mg tablet 5 mg PO QDAY 01/24/24 Unknown History ergocalciferol (vitamin D2) 1,250 1,250 mcg PO .every other week 01/24/24 Unknown History mcg (50,000 unit) capsule metoprolol succinate 100 mg 100 mg PO DAILY 01/24/24 Unknown History tablet,extended release 24 hr Allergy/AdvReac Type Severity Reaction Status Date / Time risperidone Allergy Severe Confusion Verified 03/10/24 19:37 Sulfa (Sulfonamide Allergy Swelling Verified 03/10/24 19:37 Antibiotics) celecoxib (From Celebrex) AdvReac Severe Swelling Verified 03/10/24 19:37 dextromethorphan (From AdvReac Severe hallucinati Verified 03/10/24 19:37 Delsym) on adhesive AdvReac blisters Verified 03/10/24 19:37 codeine AdvReac Itching Verified 03/10/24 19:37 levofloxacin (From Levaquin) AdvReac pain in Verified 03/10/24 19:37 legs and swelling lisinopril AdvReac cough Verified 03/10/24 19:37 oxycodone (Oxycodone) AdvReac Itching Verified 03/10/24 19:37 oxycodone HCl (From Percocet) AdvReac Itching Verified 03/10/24 19:37 Penicillins AdvReac heart Verified 03/10/24 19:37 palpitations prochlorperazine edisylate AdvReac Low blood Verified 03/10/24 19:37 (From Compazine) pressure prochlorperazine maleate AdvReac Low blood Verified 03/10/24 19:37 (From Compazine) pressure tramadol HCl (From Ultram) AdvReac Itching Verified 03/10/24 19:37 Family History Mother Arthritis CAD (coronary artery disease) Father Arthritis High cholesterol CAD (coronary artery disease) Sister Diabetes High cholesterol Hypertension Brother Diabetes High cholesterol Hypertension Surgical History History of mechanical aortic valve replacement (~10/07/13) History of back surgery History of sinus surgery History of hysterectomy History of foot surgery H/O aortic valve replacement Social History household members: spouse number of children: 2 Smoking Status: Never smoker alcohol intake: never substance use type: does not use caffeine: Yes Type: coffee what type of physical activity do you participate in: none seatbelt use: always do you feel safe at home: Yes ROS ROS ED Constitutional Constitutional ED: Denies chills or fever(s) Cardiovascular Cardiovascular: Denies chest pain Respiratory/Chest Respiratory/Chest: Reports cough, sputum and other Details: Chronic cough with sputum production?no acute change Gastrointestinal Gastrointestinal: Denies diarrhea or vomiting Genitourinary Genitourinary ED: Denies dysuria Musculoskeletal Musculoskeletal: Denies arthralgias or myalgias Psychiatric Psychiatric: Reports other Details: Behavior disturbance, delusions Hematologic/Lymphatic Hematologic/Lymphatic: Reports easy bruising and other Details: On Coumadin EXAM Physical Exam Const Vital Signs: 03/10/24 19:31 03/10/24 19:58 03/10/24 20:04 Temperature 98.3 F 98.4 F Temperature Source Temporal Oral Pulse Rate 87 75 Respiratory Rate 26 H 22 H Respiratory Effort Short of Breath Labored Respiratory Pattern Normal Blood Pressure 157/78 H 141/74 H Blood Pressure Mean 104 96 Pulse Ox 94 98 Oxygen Delivery Method Nasal Cannula Nasal Cannula Nasal Cannula Oxygen Flow Rate (L/min) 3 3 03/10/24 21:00 Temperature 98.7 F Temperature Source Oral Pulse Rate 66 Respiratory Rate 22 H Respiratory Effort Respiratory Pattern Blood Pressure 131/68 H Blood Pressure Mean 89 Pulse Ox 100 Oxygen Delivery Method Nasal Cannula Oxygen Flow Rate (L/min) 3 Positive well nourished and well developed General Appearance ED: well developed and NAD HEENT Reports moist mucous membranes Eyes PERRL Neck supple Chest Wall inspection of chest normal and palpation of chest normal Resp normal respiratory effort Resp Narrative: Coarse scattered rhonchi present. Diminished breath sounds at the bases. Cardio regular rate and regular rhythm GI normal to inspection, nondistended, normoactive bowel sounds and non-tender Extremity normal to inspection General Extremety ED: Negative for edema General Extremity: Negative for edema Neuro Neuro Narrative: Patient oriented to self. At her baseline per . Sensorium / Orientation: alert Psych mental status grossly normal Attitude: No agitated Mood & Affect: anxious Skin no rashes or lesions noted MDM MDM MDM Narrative Medical decision making narrative: Patient is evaluated for increased agitation and delirium associated with her Lewy body dementia. She is since calm down and seems been returned to her baseline. Did attempt to reach her palliative care to see if there is further medication changes that can be done to help with the symptoms. This was unsuccessful. is ready to take the patient home. Discussed that next step would potentially be [facility] psych admission or medication adjustments. He will continue to follow-up outpatient. They have diazepam to use as needed at home. He is insistent that her physical symptoms including her cough is all chronic and there is no acute change. He does not think she requires any medical evaluation. Patient discharged home into the care of her . Discharge Plan Triage Chief Complaint: Shortness of Breath Other Complaint: Anxiety ED Provider: Velma Leavitt Dx/Rx/DC Orders Clinical Impression: Lewy body dementia, Dementia with behavioral disturbance Instructions: Delirium and Dementia Prescriptions: No Action ferrous sulfate 325 mg (65 mg iron) tablet 325 mg PO BID Patient Comments: TAKE 1 TABLET BY MOUTH TWICE DAILY WITH MEALS donepezil 5 mg tablet 5 mg PO QDAY metoprolol succinate 100 mg tablet extended release 24 hr 100 mg PO DAILY diazepam 2 mg tablet See Rx Instructions PO .COMPLEX Rx Instructions: Take 1mg (1/2 tab) in the AM and 2mg (1tab) in the PM orally; ipratropium bromide 21 mcg (0.03 %) spray,non-aerosol 2 spray intranasal BID Qty: 30 3RF Rx Instructions: administer into each nostril loratadine 10 mg tablet 10 mg PO DAILY Qty: 90 3RF warfarin 3 mg tablet 3 mg PO MOWEFR paroxetine HCl 30 mg tablet 30 mg PO DAILY pantoprazole 40 MG tablet 40 mg PO BID Patient Comments: stomach bupropion HCl 150 MG tablet extended release 24 hr 150 mg PO DAILY Patient Comments: depression potassium chloride 20 MEQ tablet 20 meq PO DAILY montelukast 10 MG tablet 10 mg PO QHS furosemide 40 MG tablet 40 mg PO DAILY Qty: 0 0RF acetaminophen 650 MG tablet extended release 650 mg PO Q6H PRN (Reason: BACK PAIN) albuterol sulfate 2.5 MG/3 ML solution for nebulization 2.5 mg inhalation Q4H PRN Qty: 25 0RF Rx Instructions: Use q4 hours and PRN for wheezing warfarin 2.5 mg tablet 5 mg PO SUTUTHSA nitroglycerin 0.4 mg Tablet, Sublingual 0.4 mg sublingual Q5M PRN (Reason: Cardiac/Chest Pain) 30 Days Qty: 30 0RF aspirin 81 mg Tablet,Delayed Release (Dr/Ec) 81 mg PO BREAKFAST 30 Days Qty: 30 2RF albuterol sulfate 90 mcg/actuation HFA aerosol inhaler 2 puff inhalation Q6H PRN (Reason: shortness of breath or wheezing) Rx Instructions: administer with spacer ergocalciferol (vitamin D2) 1,250 mcg (50,000 unit) capsule 1,250 mcg PO .every other week pravastatin 80 mg tablet See Rx Instructions .ROUTE .COMPLEX Qty: 90 3RF Dose Instruction: TAKE 1 TABLET BY MOUTH AT BEDTIME FOR CHOLESTEROL Rx Instructions: TAKE 1 TABLET BY MOUTH AT BEDTIME FOR CHOLESTEROL ezetimibe 10 mg tablet See Rx Instructions .ROUTE .COMPLEX Qty: 90 3RF Dose Instruction: TAKE 1 TABLET BY MOUTH DAILY Rx Instructions: TAKE 1 TABLET BY MOUTH DAILY amiodarone 200 mg tablet 100 mg PO DAILY Qty: 45 3RF amlodipine 2.5 mg tablet 2.5 mg PO DAILY Qty: 90 3RF Primary Care Provider: Harley Cornejo Referrals: Harley Cornejo MD [Primary Care Provider] - Activity Restrictions/Additional Instructions: Please return to the ER if you or Angie do not feel safe at home. Please follow-up outpatient with her neurologist and palliative care for further medication titration to help with these episodes of delirium/sundowning and agitation. Print Language: Amharic Disposition Disposition: Home, Self Care
[2024-03-10 22:41] VITALS: BP 148/68; PULSE 68; RESP 14; TEMP 36.6; O2SAT 97
== END 2024-03-10 22:51 | disposition home or self-care (01) ==
PROVIDERS: Emergency Provider Emergency Medicine; PCP Family Medicine; Visit Provider Emergency Medicine
DX: G31.83 Neurocognitive disorder with Lewy bodies (principal); I13.0 Hypertensive heart and chronic kidney disease with heart failure and stage 1 through stage 4 chronic kidney disease, or unspecified chronic kidney disease; I50.32 Chronic diastolic (congestive) heart failure; F02.80 Dementia in other diseases classified elsewhere, unspecified severity, without behavioral disturbance, psychotic disturbance, mood disturbance, and anxiety; J44.9 Chronic obstructive pulmonary disease, unspecified; I48.20 Chronic atrial fibrillation, unspecified; I25.10 Atherosclerotic heart disease of native coronary artery without angina pectoris; E78.5 Hyperlipidemia, unspecified; F41.9 Anxiety disorder, unspecified; Z99.81 Dependence on supplemental oxygen; R45.1 Restlessness and agitation; N18.2 Chronic kidney disease, stage 2 (mild); K21.9 Gastro-esophageal reflux disease without esophagitis
CPT/HCPCS: 99283

== ENCOUNTER 2024-03-25 18:35 | Emergency (ER) | payer MEDICARE, OTHER, SELFPAY ==
[2024-03-25] VITALS (8 sets, daily range): BP systolic 127–177; BP diastolic 60–78; PULSE 69–89; RESP 16–25; TEMP 36.3–36.8; O2SAT 6–98; BMI 21.4
--- NOTE | 2024-03-25 19:16 | EKG12_ITS ---
Test Reason : SOB Blood Pressure : / mmHG Vent. Rate : 073 BPM Atrial Rate : 073 BPM P-R Int : 124 ms QRS Dur : 084 ms QT Int : 400 ms P-R-T Axes : 000 007 054 degrees QTc Int : 440 ms Normal sinus rhythm Normal ECG Confirmed by Harrison Argueta ([id number]), subeditor BOBBY CARIAS ([id number]) on 03/26/2024 10:08:19 AM Referred By: Confirmed By:Harrison Argueta
[2024-03-25 19:26] LABS: Absolute Lymphocyte Count 0.65 X10^3/uL (0.83-4.51); Absolute Neutrophil Count 11.9 X10^3/uL (2.0-7.7); Basophil# 0.05 X10^3/uL; Basophil% 0.4 % (0-1); Eosinophil# 0.16 X10^3/uL; Eosinophils% 1.2 % (0-5); Hemoglobin 11.7 g/dL (12.0-15.0); Lymphocyte # 0.65 X10^3/ul (0.83-4.51); Lymphocyte % 4.8 % (19-41); Mean Corp Hgb Conc 29.3 g/dL (32-36); Mean Corpuscular Hgb 27.1 pg (27.0-32.0); Mean Corpuscular Volume 92.8 fL (81-99); Mean Platelet Vol. 10.2 fl (6.2-12.0); Monocyte# 0.61 X10^3/uL; Monocyte% 4.5 % (0-10); NRBC Flagged by Analyzer 0 % (0-5); Neutrophil # 11.94 X10^3/uL (2.7-7.7); Neutrophil % 88.7 % (47-70); Platelet Count 291 K/mm3 (150-450); RBC Distribution Width CV 13.3 % (11.6-14.6); RBC Distribution Width SD 45.4 fl (35.1-43.9); Red Blood Count 4.31 M/mm3 (4.2-5.4); White Blood Count 13.5 K/mm3 (4.4-11.0)
--- NOTE | 2024-03-25 19:43 | RAD_ITS ---
EXAM: XR CHEST, 2 VIEWS CLINICAL INDICATION: sob TECHNIQUE: Frontal and lateral views of the chest. COMPARISON: 04/11/2023 FINDINGS: LUNGS AND PLEURAL SPACES: See below. HEART: Unremarkable. Cardiac silhouette not enlarged. MEDIASTINUM: Central airways and mediastinal contour are unremarkable. BONES/JOINTS: The bilateral effusions with bibasilar airspace disease. No acute fracture. SOFT TISSUES: Unremarkable. RAD/Chest PA and Lateral IMPRESSION: Small bilateral effusions with bibasilar atelectasis or pneumonia. Electronically Signed: Tom Pope MD at 20:14 EDT ,
[2024-03-25 19:47] LABS: Anion Gap 4 (5-15); BUN 23 mg/dL (7-18); BUN/Creat Ratio 22.3 RATIO (10-20); Calcium,Total 9.5 mg/dL (8.5-10.1); Chloride 102 mmol/L (98-107); Creatinine, Serum 1.03 mg/dL (0.55-1.02); EST Glomerular Filtration Rate 55 mL/min (>60); Est Glom Filt Rate - Afr Amer 66 mL/min (>60); Estimated Creatinine Clearance 31.81 ml/min; Glucose 82 mg/dL (74-106); Potassium 3.9 mmol/L (3.5-5.1); Sodium Level 142 mmol/L (136-145); Troponin-I HS 27 pg/mL (3.0-54.0)
[2024-03-25 19:49] LABS: BNP,B-Type NATRIURETIC PEPTIDE 147.3 pg/mL (0-100)
[2024-03-25] MEDS: predniSONE 20 MG Tablet 60 MG PO (19:51)
[2024-03-25] MEDS: Ipratropium/Albuterol Sulfate 3 ML AMPUL.NEB INHALATION ×3 (19:51→19:59)
[2024-03-25] MEDS: 0.9% Normal Saline (1000mL) 1,000 ML 999 ML IV (19:51)
[2024-03-25 20:24] LABS: Mucous, Urine 0 SEEN /hpf (<or=2+); Squamous Epithelial Cells - UA 0 SEEN /hpf (5-10); White Blood Cells 0 SEEN /hpf (0-5)
[2024-03-25 20:25] LABS: Color, Urine Yellow (Yellow); Glucose, Dipstick Normal (Normal); Ketone-Dipstick Negative (Negative); Leukocyte Esterase-Dipstick Negative /ul (Negative); Nitrite-Dipstick Negative (Negative); Occult Blood-Urine 50 /ul (Negative); Protein-Dipstick Negative (Negative); Urine Bilirubin Dipstick Negative (Negative); Urine Clarity Clear (Clear); Urine Urobilinogen Normal (Normal); Urine pH 6.5 (5.0 - 8.0)
[2024-03-25 20:37] LABS: Bacteria RARE /hpf (None Seen); Red Blood Cells-Urine 0-5 SEEN /hpf (0-5)
--- NOTE | 2024-03-25 22:14 | EX.ED.DYSGE1 ---
HPI History of Present Illness Chief Complaint: Shortness of Breath Narrative Narrative: Patient is a 78-year-old female past medical history of COPD chronically on 4 L nasal cannula, asthma, lipidemia, hypertension, GERD, hypertension, CKD stage II, chronic atrial fibrillation on warfarin, Lewy body dementia who presented to the [facility] part with a chief complaint of shortness of breath. Patient states that earlier this evening she was in the kitchen and noted that all of a sudden she had difficulty trying catch her breath. States that she has had a cough but denies any increase sputum production. Patient denies any recent sick contacts. Patient states that her shortness of breath is consistent and states that she uses her inhaler/nebulizer at home as needed. [facility] Medical History Lewy body dementia CKD (chronic kidney disease), stage II NSTEMI, initial episode of care History of cardioversion (~07/08/20) Chronic diastolic heart failure Bronchiectasis Essential hypertension Cough Allergic rhinitis GERD (gastroesophageal reflux disease) Chronic a-fib Hypoxemia Anxiety Chronic anticoagulation Severe sepsis CAP (community acquired pneumonia) Hemoptysis Atherosclerotic heart disease of [place] coronary artery without angina pectoris Syncope and collapse Palpitations Nonspecific chest pain Aneurysm, thoracic aortic Nonrheumatic aortic valve regurgitation Fatigue 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 Chronic sinusitis Asthma Aortic stenosis Obesity Hiatal hernia Depression Hyperlipidemia Hypertension Home Medications ?Medication ?Instructions ?Recorded ?Last Taken ?Type pantoprazole 40 mg tablet,delayed 40 mg PO BID ACID REFLUX 01/14/15 07/07/20 History release bupropion HCl 150 mg 24 hr tablet, 150 mg PO DAILY DEPRESSION 11/15/15 07/07/20 History extended release montelukast 10 mg tablet 10 mg PO QHS ALLERGIES 05/03/17 07/06/20 History potassium chloride 20 mEq 20 meq PO DAILY SUPPLEMENT 05/03/17 07/06/20 History tablet,extended release(part/cryst) furosemide 40 mg tablet 40 mg PO DAILY WATER PILL ##0 12/06/17 07/06/20 Rx acetaminophen 650 mg 650 mg PO Q6H PRN BACK PAIN 07/07/20 07/07/20 History tablet,extended release albuterol sulfate 2.5 mg/3 mL 2.5 mg (3 mL) inhalation Q4H PRN 05/21/21 Unknown Rx (0.083 %) solution for nebulization #25 vials ferrous sulfate 325 mg (65 mg 325 mg PO BID Check with primary 11/29/21 Unknown History iron) tablet doctor aspirin 81 mg tablet,delayed 81 mg PO BREAKFAST 30 days #30 tabs 11/03/22 Unknown Rx release nitroglycerin 0.4 mg sublingual 0.4 mg sublingual Q5M PRN 11/03/22 Unknown Rx tablet Cardiac/Chest Pain 30 days #30 tabs diazepam 2 mg tablet See Rx Instructions PO .COMPLEX 06/11/23 Unknown History ipratropium bromide 21 mcg (0.03 2 spray intranasal BID #30 mL 06/11/23 Unknown Rx %) nasal spray loratadine 10 mg tablet 10 mg PO DAILY #90 tabs 06/11/23 Unknown Rx paroxetine HCl 30 mg tablet 30 mg PO DAILY 08/06/23 Unknown History warfarin 2.5 mg tablet 5 mg PO SUTUTHSA Check with 08/06/23 Unknown History primary doctor warfarin 3 mg tablet 3 mg PO MOWEFR 08/06/23 Unknown History ezetimibe 10 mg tablet See Rx Instructions .Route 08/27/23 Unknown Rx .COMPLEX #90 TABLETS pravastatin 80 mg tablet See Rx Instructions .Route 08/27/23 Unknown Rx .COMPLEX #90 tabs amiodarone 200 mg tablet 100 mg (1/2 x 200 mg) PO DAILY #45 09/25/23 Unknown Rx tabs amlodipine 2.5 mg tablet 2.5 mg PO DAILY #90 tabs 11/29/23 Unknown Rx donepezil 5 mg tablet 5 mg PO QDAY 01/24/24 Unknown History ergocalciferol (vitamin D2) 1,250 1,250 mcg PO .every other week 01/24/24 Unknown History mcg (50,000 unit) capsule metoprolol succinate 100 mg 100 mg PO DAILY 01/24/24 Unknown History tablet,extended release 24 hr albuterol sulfate 90 mcg/actuation 2 puff inhalation Q6H PRN 03/20/24 Unknown Rx aerosol inhaler shortness of breath or wheezing #8.5 grams doxycycline hyclate 100 mg capsule 100 mg PO BID 7 days #14 caps 03/25/24 Unknown Rx prednisone 50 mg tablet 50 mg PO DAILY 4 days #4 tabs 03/25/24 Unknown Rx Allergy/AdvReac Type Severity Reaction Status Date / Time risperidone Allergy Severe Confusion Verified 03/25/24 18:38 Sulfa (Sulfonamide Allergy Swelling Verified 03/25/24 18:38 Antibiotics) celecoxib (From Celebrex) AdvReac Severe Swelling Verified 03/25/24 18:38 dextromethorphan (From AdvReac Severe hallucinati Verified 03/25/24 18:38 Delsym) on adhesive AdvReac blisters Verified 03/25/24 18:38 codeine AdvReac Itching Verified 03/25/24 18:38 levofloxacin (From Levaquin) AdvReac pain in Verified 03/25/24 18:38 legs and swelling lisinopril AdvReac cough Verified 03/25/24 18:38 oxycodone (Oxycodone) AdvReac Itching Verified 03/25/24 18:38 oxycodone HCl (From Percocet) AdvReac Itching Verified 03/25/24 18:38 Penicillins AdvReac heart Verified 03/25/24 18:38 palpitations prochlorperazine edisylate AdvReac Low blood Verified 03/25/24 18:38 (From Compazine) pressure prochlorperazine maleate AdvReac Low blood Verified 03/25/24 18:38 (From Compazine) pressure tramadol HCl (From Ultram) AdvReac Itching Verified 03/25/24 18:38 Family History Mother Arthritis CAD (coronary artery disease) Father Arthritis High cholesterol CAD (coronary artery disease) Sister Diabetes High cholesterol Hypertension Brother Diabetes High cholesterol Hypertension Surgical History History of mechanical aortic valve replacement (~10/07/13) History of back surgery History of sinus surgery History of hysterectomy History of foot surgery H/O aortic valve replacement Social History household members: spouse number of children: 2 Smoking Status: Never smoker alcohol intake: never substance use type: does not use caffeine: Yes Type: coffee what type of physical activity do you participate in: none seatbelt use: always do you feel safe at home: Yes ROS ROS ED ROS Narrative Constitutional: Denies any fevers, chills, headaches, lightness, dizziness Eyes: Denies change in vision double vision blurry vision Cardiovascular: Denies chest pain palpitations Respiratory: Complains of shortness of breath as noted above denies coughing wheezing Abdomen: Denies abdominal pain nausea vomit diarrhea : Denies any urinary symptoms Neurological: Denies numbness, weakness, tingling Musculoskeletal: Denies back pain Skin: Denies rashes or lesions EXAM Physical Exam Narrative Exam Narrative: General: Patient was lying in bed rest comfortably did not appear to be in acute distress Head: Atraumatic, normocephalic Eyes: PERRL bilaterally, EOMI bilateral, no conjunctival injection noted Neck: Soft, supple, trach midline Cardiovascular: Regular rate and rhythm no murmurs gallops rubs noted Respiratory: Patient has end expiratory wheezing noted bilaterally Abdomen: Soft, nondistended, no tenderness palpation, bowel sounds present x 4 Extremities: +5/5 strength noted in the bilateral upper and lower extremities, no pedal edema no exam Neurological: Patient is following commands knew that she was at [facility] the year is 2023 and that we are in summer Skin: Warm, dry, intact Const Vital Signs: 03/25/24 18:39 03/25/24 18:43 03/25/24 18:44 Temperature 97.6 F L 97.8 F Temperature Source Temporal Temporal Pulse Rate 73 70 Respiratory Rate 18 18 Respiratory Effort Short of Breath Respiratory Depth Normal Respiratory Pattern Normal Blood Pressure 170/69 H 170/69 H Blood Pressure Mean 102 102 Pulse Ox 98 98 Oxygen Delivery Method Nasal Cannula Nasal Cannula Nasal Cannula Oxygen Flow Rate (L/min) 4 4 4 03/25/24 19:27 03/25/24 19:43 03/25/24 20:00 Temperature 97.4 F L Temperature Source Temporal Pulse Rate 80 81 Respiratory Rate 25 H 20 H Respiratory Effort Respiratory Depth Respiratory Pattern Normal Blood Pressure 177/76 H Blood Pressure Mean 109 Pulse Ox 97 Oxygen Delivery Method Nasal Cannula Nasal Cannula Oxygen Flow Rate (L/min) 4 4 03/25/24 20:00 03/25/24 21:00 Temperature 97.8 F 97.9 F Temperature Source Temporal Temporal Pulse Rate 74 89 Respiratory Rate 18 16 Respiratory Effort Respiratory Depth Respiratory Pattern Blood Pressure 134/78 H 131/64 H Blood Pressure Mean 96 86 Pulse Ox 97 97 Oxygen Delivery Method Nasal Cannula Nasal Cannula Oxygen Flow Rate (L/min) 4 4 MDM MDM MDM Narrative Medical decision making narrative: Patient is a 78-year-old female who presented to the [facility] with chief complaint of shortness of breath. Patient will have a workup performed here on the differential diagnose includes but limited to COPD exacerbation secondary to upper respiratory infection second viral etiology, pneumonia, ACS. Once workup is obtained reviewed she will be reevaluated. Patient will be given 3 DuoNebs, prednisone orally and IV fluids. Patient CBC was significant for leukocytosis of 13,000, hemoglobin stable 11.7, platelet count normal at 291. Patient's sodium normal at 142, potassium normal 3.9, creatinine was 1.03 which is just slightly above her baseline which is around 1, troponin normal at 27, EKG reviewed and showed normal sinus rhythm rate of 73 bpm. Patient's proBNP mildly elevated 147 however this appears to be chronically elevated based on her previous blood draws. Patient's urinalysis did not reveal any evidence infection. Patient's chest x-ray was reviewed and showed small bilateral pleural effusions with basilar atelectasis or pneumonia. Patient was ambulated here in the emergency department and her oxygen saturation was 95 to 96% on her 4 L nasal cannula which she is chronically on. Patient and significant other at bedside would like to go home at this point time. She was given her first dose of doxycycline here she already received oral steroids here. Prescription will be sent to her pharmacy for doxycycline and prednisone for the next 4 days. Patient was encouraged to return with worsening symptoms or other concerns. She was advised to follow-up with her primary care physician outpatient setting. They are agreeable with this plan all question concerns answered she is discharged home in stable condition. Lab Data Labs: Laboratory Results - last 24 hr 03/25/24 03/25/24 18:46 19:47 WBC 13.5 H RBC 4.31 Hgb 11.7 L Hct 40.0 MCV 92.8 MCH 27.1 MCHC 29.3 L RDW Std Deviation 45.4 H RDW Coeff of Loki 13.3 Plt Count 291 MPV 10.2 Immature Gran % (Auto) 0.400 Neut % (Auto) 88.7 H Lymph % (Auto) 4.8 L Bee % (Auto) 4.5 Eos % (Auto) 1.2 Baso % (Auto) 0.4 Absolute Neuts (auto) 11.9 H Absolute Lymphs (auto) 0.65 L Nucleated RBC % 0 Sodium 142 Potassium 3.9 Chloride 102 Carbon Dioxide 36.0 H Anion Gap 4 L BUN 23 H Creatinine 1.03 H Estim Creat Clear Calc 31.81 Est GFR (MDRD) Af Amer 66 Est GFR (MDRD) Non-Af 55 L BUN/Creatinine Ratio 22.3 H Glucose 82 Calcium 9.5 Troponin I High Sens 27 B-Natriuretic Peptide 147.3 H Urine Color Yellow Urine Clarity Clear Urine pH 6.5 Ur Specific [place] 1.010 Urine Protein Negative Urine Glucose (UA) Normal Urine Ketones Negative Urine Occult Blood 50 H Urine Nitrite Negative Urine Bilirubin Negative Urine Urobilinogen Normal Ur Leukocyte Esterase Negative Urine RBC 0-5 SEEN Urine WBC 0 SEEN Ur Squamous Epith Cells 0 SEEN Urine Bacteria RARE Urine Mucus 0 SEEN Radiography Diagnostic Testing: Clinical Impression(s) from Imaging Studies Chest X-Ray 03/25/24 19:43 IMPRESSION: Small bilateral effusions with bibasilar atelectasis or pneumonia. Electronically Signed: Tom Pope MD at 20:14 EDT , Discharge Plan Triage Chief Complaint: Shortness of Breath ED Provider: Isiah Galaviz Dx/Rx/DC Orders Clinical Impression: COPD exacerbation, Pneumonia Prescriptions: New doxycycline hyclate 100 mg capsule 100 mg PO BID 7 Days Qty: 14 0RF prednisone 50 mg tablet 50 mg PO DAILY 4 Days Qty: 4 0RF No Action ferrous sulfate 325 mg (65 mg iron) tablet 325 mg PO BID Patient Comments: TAKE 1 TABLET BY MOUTH TWICE DAILY WITH MEALS donepezil 5 mg tablet 5 mg PO QDAY metoprolol succinate 100 mg tablet extended release 24 hr 100 mg PO DAILY diazepam 2 mg tablet See Rx Instructions PO .COMPLEX Rx Instructions: Take 1mg (1/2 tab) in the AM and 2mg (1tab) in the PM orally; ipratropium bromide 21 mcg (0.03 %) spray,non-aerosol 2 spray intranasal BID Qty: 30 3RF Rx Instructions: administer into each nostril loratadine 10 mg tablet 10 mg PO DAILY Qty: 90 3RF warfarin 3 mg tablet 3 mg PO MOWEFR paroxetine HCl 30 mg tablet 30 mg PO DAILY albuterol sulfate 90 mcg/actuation HFA aerosol inhaler 2 puff inhalation Q6H PRN (Reason: shortness of breath or wheezing) Qty: 8.5 11RF Rx Instructions: administer with spacer pantoprazole 40 MG tablet 40 mg PO BID Patient Comments: stomach bupropion HCl 150 MG tablet extended release 24 hr 150 mg PO DAILY Patient Comments: depression potassium chloride 20 MEQ tablet 20 meq PO DAILY montelukast 10 MG tablet 10 mg PO QHS furosemide 40 MG tablet 40 mg PO DAILY Qty: 0 0RF acetaminophen 650 MG tablet extended release 650 mg PO Q6H PRN (Reason: BACK PAIN) albuterol sulfate 2.5 MG/3 ML solution for nebulization 2.5 mg inhalation Q4H PRN Qty: 25 0RF Rx Instructions: Use q4 hours and PRN for wheezing warfarin 2.5 mg tablet 5 mg PO SUTUTHSA nitroglycerin 0.4 mg Tablet, Sublingual 0.4 mg sublingual Q5M PRN (Reason: Cardiac/Chest Pain) 30 Days Qty: 30 0RF aspirin 81 mg Tablet,Delayed Release (Dr/Ec) 81 mg PO BREAKFAST 30 Days Qty: 30 2RF ergocalciferol (vitamin D2) 1,250 mcg (50,000 unit) capsule 1,250 mcg PO .every other week pravastatin 80 mg tablet See Rx Instructions .ROUTE .COMPLEX Qty: 90 3RF Dose Instruction: TAKE 1 TABLET BY MOUTH AT BEDTIME FOR CHOLESTEROL Rx Instructions: TAKE 1 TABLET BY MOUTH AT BEDTIME FOR CHOLESTEROL ezetimibe 10 mg tablet See Rx Instructions .ROUTE .COMPLEX Qty: 90 3RF Dose Instruction: TAKE 1 TABLET BY MOUTH DAILY Rx Instructions: TAKE 1 TABLET BY MOUTH DAILY amiodarone 200 mg tablet 100 mg PO DAILY Qty: 45 3RF amlodipine 2.5 mg tablet 2.5 mg PO DAILY Qty: 90 3RF Primary Care Provider: Harley Cornejo Referrals: Harley Cornejo MD [Primary Care Provider] - Activity Restrictions/Additional Instructions: Take antibiotics as prescribed as well as steroids. Follow with your primary care physician outpatient setting. Return with worsening symptoms or any other concerns. Use your inhalers and nebulizers at home as prescribed Print Language: Chadian Disposition Disposition: Home, Self Care
[2024-03-25] MEDS: Doxycycline 100 MG CAPSULE PO (22:27)
== END 2024-03-25 23:22 | disposition home or self-care (01) ==
PROVIDERS: Emergency Provider Emergency Medicine; PCP Family Medicine; Visit Provider Emergency Medicine
DX: J18.9 Pneumonia, unspecified organism (principal); I50.32 Chronic diastolic (congestive) heart failure; I13.0 Hypertensive heart and chronic kidney disease with heart failure and stage 1 through stage 4 chronic kidney disease, or unspecified chronic kidney disease; F03.90 Unspecified dementia, unspecified severity, without behavioral disturbance, psychotic disturbance, mood disturbance, and anxiety; J44.1 Chronic obstructive pulmonary disease with (acute) exacerbation; I48.20 Chronic atrial fibrillation, unspecified; E78.5 Hyperlipidemia, unspecified; N18.2 Chronic kidney disease, stage 2 (mild); I25.10 Atherosclerotic heart disease of native coronary artery without angina pectoris; Z79.01 Long term (current) use of anticoagulants; I25.2 Old myocardial infarction; K21.9 Gastro-esophageal reflux disease without esophagitis; F32.A Depression, unspecified; Z79.899 Other long term (current) drug therapy; Z79.82 Long term (current) use of aspirin; F41.9 Anxiety disorder, unspecified; Z95.2 Presence of prosthetic heart valve; Z90.710 Acquired absence of both cervix and uterus
CPT/HCPCS: 71046; 80048; 81001; 83880; 84484; 85025; 87631; 93005; 94640; 99284; J7030; A4216

== ENCOUNTER 2024-04-07 18:02 | Emergency (ER) | payer MEDICARE, OTHER, SELFPAY ==
[2024-04-07 18:04] VITALS: BP 135/59; PULSE 71; RESP 16; TEMP 36; O2SAT 99
[2024-04-07 18:07] VITALS: BP 128/70; PULSE 68; RESP 16
--- NOTE | 2024-04-07 18:54 | ED.RN ---
tHIS RN BROUGHT CONCERNS FOR PATIENT SAFETY TO HRO AND CHARGE NURSE. HRO TONG STATED HE LOOKED INTO PATIENT AND THERE HAS BEEN MULTIPLE COMPLAINTS AND ALLEGATIONS ABOUT PATIENTS SAFETY AND WELL BEING. THOSE COMPLAINTS HAVE BEEN INVESTIGATED SEVERAL TIMES AND PT. IS SAFE WHERE SHE LIVES.
[2024-04-07 20:07] VITALS: BP 141/101; PULSE 61; RESP 18; O2SAT 99
[2024-04-07 20:44] LABS: Absolute Lymphocyte Count 0.85 X10^3/uL (0.83-4.51); Basophil# 0.03 X10^3/uL; Basophil% 0.3 % (0-1); Eosinophil# 0.29 X10^3/uL; Eosinophils% 2.9 % (0-5); Hematocrit 35.4 % (37-47); Hemoglobin 10.5 g/dL (12.0-15.0); Lymphocyte # 0.85 X10^3/ul (0.83-4.51); Lymphocyte % 8.5 % (19-41); Mean Corp Hgb Conc 29.7 g/dL (32-36); Mean Corpuscular Hgb 27.6 pg (27.0-32.0); Mean Corpuscular Volume 93.2 fL (81-99); Monocyte# 0.74 X10^3/uL; Monocyte% 7.4 % (0-10); NRBC Flagged by Analyzer 0 % (0-5); Neutrophil % 80.5 % (47-70); Platelet Count 230 K/mm3 (150-450); RBC Distribution Width CV 13.7 % (11.6-14.6); RBC Distribution Width SD 47.1 fl (35.1-43.9)
--- NOTE | 2024-04-07 20:45 | CT_ITS ---
INDICATION: head injury EXAMINATION: CT BRAIN - CT Head or Brain W/O Contrast Injection TECHNIQUE: Multiple axial images were obtained of the head without intravenous contrast. A radiation dose optimization technique was used for this scan. IV Contrast dosage and agent: None. RADIATION DOSAGE (If Supplied By Facility): CTDIvol = ( 44.99 ) mGy, DLP = ( 796.11 ) mGycm COMPARISON: 01/19/2022 FINDINGS: HEMISPHERES: 1. The cerebral parenchyma, ventricular system, subarachnoid spaces have normal configuration and density. There is a normal gyral pattern. There is normal prado/white differentiation. No midline shift.. 2. Diffuse involutional change and chronic microvascular deep white matter disease. 3. No intraparenchymal mass, hemorrhage, or acute territorial infarct. CEREBELLUM - BRAINSTEM: The cerebellum, brainstem, basilar and suprasellar cisterns have normal appearance. No Chiari malformation. PITUITARY: Infundibulum and pituitary have normal configuration. Midline structures appear normal. CSF SPACES: Appropriate for age. No hydrocephalus. Basal cisterns are patent. VESSELS: 1. Moderate vascular calcifications involving the cavernous carotid vessels. 2. No hyperdense vascular signs noted.. ORBITS AND PARANASAL SINUSES: 1. Normal appearance of the bony orbits. Normal appearance of the globes and retrobulbar soft tissues.. 2. Extensive sinus disease with findings consistent with bilateral uncinectomies infundibulotomies nasal antral windows and internal ethmoidectomy. Extensive residual mucosal thickening within the remaining ethmoid air cells, sphenoid sinuses and significant RIGHT mastoid air cell disease. Moderate LEFT maxillary sinus mucosal thickening. BONY ELEMENTS: Bony elements of the cranial vault, facial skeleton and skull base have normal appearance. SCALP AND SOFT TISSUES: Normal appearance of the soft tissues of the scalp and the visualized face OTHER: None ASPECTS Score for Acute Strokes: 10 CT/Brain/Head without Contrast IMPRESSION: 1. Stable exam. 2. Diffuse involutional change and chronic microvascular deep white matter disease. 3. No intracranial mass, hemorrhage or acute territorial infarct. 4. Extensive sinus disease and postoperative changes involving the ethmoid and maxillary sinuses. Electronically Signed: Andre Morales MD at 21:16 EDT ,
--- NOTE | 2024-04-07 20:45 | CT_ITS ---
INDICATION: injury -- thoracic spine, left rib injury EXAMINATION: CT CHEST WITHOUT CONTRAST - CT Chest W/O Contrast Injection TECHNIQUE: Helically acquired images were obtained of the chest. A radiation dose optimization technique was used for this scan. IV Contrast dosage and agent: None. Radiation Dose (provided by facility) CTDIvol (10.47 ) mGy, DLP ( 332.09) mGy-cm COMPARISON: 01/28/2019 FINDINGS: LUNGS, PLEURA AND LARGE AIRWAYS: Volume loss and RIGHT lower lobe/RIGHT basilar airspace consolidation. Atelectasis at LEFT base and a prominent hiatal hernia is present. There is a moderate size RIGHT effusion and small LEFT effusion. Diffuse calcifications involving the bronchi bilaterally. No pneumothorax. THYROID: No thyroid lesions. HEART AND PERICARDIUM: Cardiac contour is large. No pericardial effusion however extensive coronary vascular calcifications are present. Postoperative changes of prior CABG. VESSELS: Extensive vascular calcifications involving the aortic arch. There is moderate ectasia of the ascending aorta with maximal transverse dimension of 4.0 cm. Findings are stable. MEDIASTINUM AND GALILEO: No mediastinal or hilar adenopathy. Esophagus is unremarkable. Prominent hiatal hernia is present. UPPER ABDOMEN: No acute pathology. BONES: Multilevel vertebral body compression fractures which appear remote including T12, T10, T8, and T6. No acute fractures or acutely acquired canal stenosis. No acute rib fractures identified. There are postoperative changes of prior median sternotomy. CT/Chest without Contrast IMPRESSION: 1. Interval dense airspace consolidation volume loss involving the RIGHT lower lobe. Mild atelectasis at the LEFT base. Bilateral pleural fluid collections greater on the RIGHT than LEFT. 2. Interval development of a cystic navicular multilevel compression fractures which appear remote, including T6, T8, T10, and T12. No evidence of acutely acquired canal stenosis or subluxation. Significant vertebral body height loss however noted. 3. No acute displaced rib fractures identified. 4. Stable ectatic appearance of the ascending aorta with maximal transverse dimension of 4.0 cm. 5. Extensive stable coronary vascular calcifications. 6. Hiatal hernia. Electronically Signed: Andre Morales MD at 21:40 EDT ,
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
[2024-04-07] MEDS: fentaNYL 100 MCG/2 ML Ampul 25 MCG IV (20:58)
[2024-04-07 21:01] LABS: Anion Gap 4 (5-15); BUN 15 mg/dL (7-18); BUN/Creat Ratio 14.9 RATIO (10-20); Calcium,Total 9.4 mg/dL (8.5-10.1); Chloride 104 mmol/L (98-107); Creatinine, Serum 1.01 mg/dL (0.55-1.02); EST Glomerular Filtration Rate 56 mL/min (>60); Est Glom Filt Rate - Afr Amer 68 mL/min (>60); Glucose 74 mg/dL (74-106); Potassium 3.5 mmol/L (3.5-5.1); Sodium Level 142 mmol/L (136-145)
[2024-04-07 21:04] LABS: International Normalized Ratio 3.5; Prothrombin Time (Protime)PT. 34.6 SECONDS (11.7-14.9)
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
[2024-04-07 22:00] VITALS: BP 131/71; PULSE 66
[2024-04-07 22:43] VITALS: BP 151/75; PULSE 81; RESP 16; TEMP 36.8; O2SAT 100
== END 2024-04-07 22:44 | disposition home or self-care (01) ==
PROVIDERS: Emergency Provider Emergency Medicine; PCP Family Medicine; Visit Provider Emergency Medicine
DX: S20.20XA Contusion of thorax, unspecified, initial encounter (principal); M48.54XA Collapsed vertebra, not elsewhere classified, thoracic region, initial encounter for fracture; I13.0 Hypertensive heart and chronic kidney disease with heart failure and stage 1 through stage 4 chronic kidney disease, or unspecified chronic kidney disease; I50.32 Chronic diastolic (congestive) heart failure; G31.83 Neurocognitive disorder with Lewy bodies; F02.80 Dementia in other diseases classified elsewhere, unspecified severity, without behavioral disturbance, psychotic disturbance, mood disturbance, and anxiety; J44.9 Chronic obstructive pulmonary disease, unspecified; I25.10 Atherosclerotic heart disease of native coronary artery without angina pectoris; W22.09XA Striking against other stationary object, initial encounter; Z79.01 Long term (current) use of anticoagulants; E78.5 Hyperlipidemia, unspecified; N18.2 Chronic kidney disease, stage 2 (mild)
CPT/HCPCS: 70450; 71250; 80048; 85025; 85610; 96374; 99283; A4216

== ENCOUNTER 2024-06-14 16:43 | Inpatient (IN) | payer MEDICARE, OTHER, SELFPAY ==
[2024-06-14] VITALS (11 sets, daily range): BP systolic 129–148; BP diastolic 56–84; PULSE 70–86; RESP 16–25; TEMP 36.7–37.9; O2SAT 81–98; BMI 22.6; BMI 22.1
[2024-06-14 17:11] LABS: Absolute Neutrophil Count 13.4 X10^3/uL (2.0-7.7); Basophil# 0.07 X10^3/uL; Basophil% 0.5 % (0-1); Eosinophil# 0.08 X10^3/uL; Eosinophils% 0.6 % (0-5); Hematocrit 36.5 % (37-47); Hemoglobin 10.5 g/dL (12.0-15.0); Lymphocyte % 3.4 % (19-41); Mean Corp Hgb Conc 28.8 g/dL (32-36); Mean Corpuscular Hgb 26.1 pg (27.0-32.0); Mean Corpuscular Volume 90.8 fL (81-99); Mean Platelet Vol. 10.2 fl (6.2-12.0); Monocyte# 0.46 X10^3/uL; Monocyte% 3.2 % (0-10); NRBC Flagged by Analyzer 0 % (0-5); Neutrophil # 13.37 X10^3/uL (2.7-7.7); POSITIVE DIFFERENTIAL YES; Platelet Count 314 K/mm3 (150-450); RBC Distribution Width CV 13.4 % (11.6-14.6); RBC Distribution Width SD 45.1 fl (35.1-43.9); Red Blood Count 4.02 M/mm3 (4.2-5.4); White Blood Count 14.5 K/mm3 (4.4-11.0)
[2024-06-14 17:20] LABS: Differential Indicated SCAN CRITERIA MET
[2024-06-14 17:30] LABS: Mucous, Urine 0 SEEN /hpf (<or=2+)
[2024-06-14 17:31] LABS: International Normalized Ratio 3.1
[2024-06-14 17:32] LABS: Partial Thromboplast Time 35.2 Seconds (24.1-36.2)
[2024-06-14] MEDS: MethylPREDNISolone 125 MG/2 ML Vial IV (17:34)
[2024-06-14] MEDS: 0.9% Normal Saline (1000mL) 1,000 ML 999 ML IV (17:34)
[2024-06-14 17:41] LABS: Color, Urine Straw (Yellow); Glucose, Dipstick Normal (Normal); Ketone-Dipstick Negative (Negative); Leukocyte Esterase-Dipstick 25 /ul (Negative); Nitrite-Dipstick Negative (Negative); Occult Blood-Urine 25 /ul (Negative); Protein-Dipstick Negative (Negative); Urine Bilirubin Dipstick Negative (Negative); Urine Clarity Clear (Clear); Urine Urobilinogen Normal (Normal); Urine pH 6.5 (5.0 - 8.0)
[2024-06-14] MEDS: Ipratropium/Albuterol Sulfate 3 ML AMPUL.NEB INHALATION ×3 (17:46)
[2024-06-14 17:53] LABS: Bacteria RARE /hpf (None Seen); Red Blood Cells-Urine 10-25 SEEN /hpf (0-5); White Blood Cells 10-25 SEEN /hpf (0-5)
[2024-06-14 17:54] LABS: Squamous Epithelial Cells - UA 0-5 SEEN /hpf (5-10)
[2024-06-14 17:56] LABS: AST(SGOT) 21 U/L (15-37); Alanine Aminotransfer ALT/SGPT 20 U/L (13-56); Alkaline Phosphatase 87 U/L (45-117); Anion Gap 4 (5-15); BUN 16 mg/dL (7-18); BUN/Creat Ratio 15.7 RATIO (10-20); Bilirubin, Direct 0.15 mg/dL (0.00-0.30); Calcium,Total 8.8 mg/dL (8.5-10.1); Chloride 101 mmol/L (98-107); Creatinine, Serum 1.02 mg/dL (0.55-1.02); EST Glomerular Filtration Rate 56 mL/min (>60); Est Glom Filt Rate - Afr Amer 67 mL/min (>60); Estimated Creatinine Clearance 32.12 ml/min; Globulin 3.9 g/dL (2.2-4.2); Glucose 98 mg/dL (74-106); Lipase 19 U/L (13-75); Potassium 3.7 mmol/L (3.5-5.1); Protein, Total 6.9 g/dL (6.4-8.2); Sodium Level 139 mmol/L (136-145); Troponin-I HS 15 pg/mL (3.0-54.0)
[2024-06-14 18:00] LABS: Platelet Estimate ADEQUATE (ADEQ)
[2024-06-14 18:01] LABS: Anisocytosis RARE; Lactic Acid 2.2 mmol/L (0.4-1.9); Macrocytosis RARE; Red Cell Morphology N CHROM NORMAL (NORM C&C)
[2024-06-14] MEDS: Ceftriaxone 1 GM/50 ML BAG IV (18:22)
[2024-06-14] MEDS: Azithromycin 500 MG in Dextrose 5%-Water (250mL Bag) 250 ML 250 MG IV (18:28)
[2024-06-14] MEDS: Acetaminophen 500 MG Tablet 1000 MG PO (18:57)
[2024-06-14] MEDS: Ferrous Sulfate 325 MG Tablet PO (21:08)
[2024-06-14] MEDS: Montelukast 10 MG Tablet PO (21:08)
[2024-06-14] MEDS: Pantoprazole Sodium 40 MG Tablet PO (21:08)
[2024-06-14] MEDS: diazePAM 2 MG Tablet PO (21:08)
[2024-06-14] MEDS: Pravastatin 80 MG Tablet PO (21:08)
[2024-06-14] MEDS: Meropenem 1 GM in 0.9% Normal Saline (100mL MB+) 100 ML IV (21:09)
[2024-06-14] MEDS: MELATONIN 3 MG TABLET PO (21:09)
[2024-06-14] MEDS: 0.9% Saline Lock 10 ML Syringe IV (21:09)
[2024-06-14 21:13] LABS: Reflex Lactate? Y
[2024-06-14 22:00] LABS: Lactic Acid 2.1 mmol/L (0.4-1.9)
[2024-06-14 22:04] LABS: Procalcitonin 0.32 ng/mL (0.00-0.09)
[2024-06-15] VITALS (8 sets, daily range): BP systolic 104–161; BP diastolic 48–70; PULSE 62–86; RESP 12–18; TEMP 36.3–37.3; O2SAT 94–98; BMI 22.2
[2024-06-15] MEDS: 0.9% Saline Lock 10 ML Syringe IV ×3 (05:24→19:47)
[2024-06-15 06:34] LABS: Absolute Lymphocyte Count 0.41 X10^3/uL (0.83-4.51); Absolute Neutrophil Count 14.1 X10^3/uL (2.0-7.7); Basophil# 0.02 X10^3/uL; Basophil% 0.1 % (0-1); Hematocrit 33.7 % (37-47); Hemoglobin 9.7 g/dL (12.0-15.0); Lymphocyte # 0.41 X10^3/ul (0.83-4.51); Lymphocyte % 2.8 % (19-41); Mean Corp Hgb Conc 28.8 g/dL (32-36); Mean Corpuscular Hgb 25.9 pg (27.0-32.0); Mean Corpuscular Volume 89.9 fL (81-99); Mean Platelet Vol. 10.2 fl (6.2-12.0); Monocyte# 0.17 X10^3/uL; Monocyte% 1.2 % (0-10); NRBC Flagged by Analyzer 0 % (0-5); Neutrophil # 14.12 X10^3/uL (2.7-7.7); Neutrophil % 95.6 % (47-70); POSITIVE DIFFERENTIAL YES; Platelet Count 278 K/mm3 (150-450); RBC Distribution Width CV 13.5 % (11.6-14.6); Red Blood Count 3.75 M/mm3 (4.2-5.4); White Blood Count 14.8 K/mm3 (4.4-11.0)
[2024-06-15 07:02] LABS: ALB/GLOB Ratio 0.7 RATIO (0.9-2.4); AST(SGOT) 22 U/L (15-37); Alanine Aminotransfer ALT/SGPT 22 U/L (13-56); Albumin, Serum 2.5 g/dL (3.2-5.0); Alkaline Phosphatase 69 U/L (45-117); Anion Gap 3 (5-15); BUN 15 mg/dL (7-18); BUN/Creat Ratio 15.4 RATIO (10-20); Calcium,Total 9.3 mg/dL (8.5-10.1); Chloride 101 mmol/L (98-107); Creatinine, Serum 0.97 mg/dL (0.55-1.02); EST Glomerular Filtration Rate 59 mL/min (>60); Est Glom Filt Rate - Afr Amer 71 mL/min (>60); Estimated Creatinine Clearance 33.78 ml/min; Globulin 3.7 g/dL (2.2-4.2); Glucose 144 mg/dL (74-106); Potassium 3.7 mmol/L (3.5-5.1); Protein, Total 6.2 g/dL (6.4-8.2); Sodium Level 140 mmol/L (136-145)
[2024-06-15] MEDS: Albuterol 2.5 MG/3 ML VIAL.NEB. INHALATION (07:06)
[2024-06-15] MEDS: Budesonide Respules 0.5 MG/2 ML AMPUL.NEB. INHALATION ×2 (07:07→20:35)
[2024-06-15 07:10] LABS: International Normalized Ratio 3.6; Prothrombin Time (Protime)PT. 35.8 SECONDS (11.7-14.9)
[2024-06-15 07:46] LABS: BNP,B-Type NATRIURETIC PEPTIDE 350.8 pg/mL (0-100)
[2024-06-15] MEDS: Aspirin E.C. 81 MG Tablet 162 MG PO (09:09)
[2024-06-15] MEDS: Amiodarone 200 MG Tablet 100 MG PO (09:20)
[2024-06-15] MEDS: Ferrous Sulfate 325 MG Tablet PO ×2 (09:20→19:48)
[2024-06-15] MEDS: Potassium Chloride Oral Tablet 20 MEQ PO (09:20)
[2024-06-15] MEDS: Furosemide 40 MG/4 ML Vial IV ×3 (09:20→19:48)
[2024-06-15] MEDS: PARoxetine 10 MG Tablet 30 MG PO (09:21)
[2024-06-15] MEDS: Metoprolol(XL)Succ 100 MG Tablet PO (09:21)
[2024-06-15] MEDS: Ezetimibe 10 MG Tablet PO (09:21)
[2024-06-15] MEDS: Loratadine 10 MG Tablet PO (09:21)
[2024-06-15] MEDS: buPROPion (XL) 150 MG TABLET.XL PO (09:21)
[2024-06-15] MEDS: Pantoprazole Sodium 40 MG Tablet PO ×2 (09:21→19:51)
[2024-06-15] MEDS: amLODIPine 2.5 MG Tablet PO (09:22)
[2024-06-15] MEDS: Donepezil HCl 5 MG Tablet PO (09:22)
[2024-06-15] MEDS: Azithromycin 500 MG in Dextrose 5%-Water (250mL Bag) 250 ML 250 MG IV (09:24)
[2024-06-15] MEDS: Meropenem 1 GM in 0.9% Normal Saline (100mL MB+) 100 ML IV ×2 (11:39→19:49)
[2024-06-15] MEDS: diazePAM 2 MG Tablet 1 MG PO (11:39)
[2024-06-15] MEDS: diazePAM 2 MG Tablet PO (19:48)
[2024-06-15] MEDS: MELATONIN 3 MG TABLET PO (19:48)
[2024-06-15] MEDS: Montelukast 10 MG Tablet PO (19:51)
[2024-06-15] MEDS: Pravastatin 80 MG Tablet PO (19:52)
[2024-06-16] VITALS (7 sets, daily range): BP systolic 110–124; BP diastolic 60–81; PULSE 110–120; RESP 16–18; TEMP 36.2–36.9; O2SAT 96–100; BMI 21.6
[2024-06-16] MEDS: Furosemide 40 MG/4 ML Vial IV (04:51)
[2024-06-16] MEDS: 0.9% Saline Lock 10 ML Syringe IV ×4 (04:51→20:53)
[2024-06-16 07:05] LABS: Absolute Neutrophil Count 18.7 X10^3/uL (2.0-7.7); Basophil# 0.02 X10^3/uL; Basophil% 0.1 % (0-1); Hematocrit 33.4 % (37-47); Hemoglobin 9.9 g/dL (12.0-15.0); Lymphocyte % 1.5 % (19-41); Mean Corp Hgb Conc 29.6 g/dL (32-36); Mean Corpuscular Hgb 26.2 pg (27.0-32.0); Mean Corpuscular Volume 88.4 fL (81-99); Mean Platelet Vol. 10.5 fl (6.2-12.0); Monocyte# 0.52 X10^3/uL; Monocyte% 2.6 % (0-10); NRBC Flagged by Analyzer 0 % (0-5); Neutrophil # 18.72 X10^3/uL (2.7-7.7); POSITIVE DIFFERENTIAL YES; Platelet Count 325 K/mm3 (150-450); RBC Distribution Width CV 13.8 % (11.6-14.6); RBC Distribution Width SD 44.2 fl (35.1-43.9); Red Blood Count 3.78 M/mm3 (4.2-5.4); White Blood Count 19.7 K/mm3 (4.4-11.0)
[2024-06-16] MEDS: Budesonide Respules 0.5 MG/2 ML AMPUL.NEB. INHALATION ×2 (07:25→20:08)
[2024-06-16 07:29] LABS: Anion Gap 2 (5-15); BUN 24 mg/dL (7-18); BUN/Creat Ratio 25.3 RATIO (10-20); Calcium,Total 9.3 mg/dL (8.5-10.1); Chloride 100 mmol/L (98-107); Creatinine, Serum 0.95 mg/dL (0.55-1.02); EST Glomerular Filtration Rate 60 mL/min (>60); Est Glom Filt Rate - Afr Amer 73 mL/min (>60); Estimated Creatinine Clearance 34.49 ml/min; Glucose 208 mg/dL (74-106); Magnesium 1.8 mg/dL (1.6-2.6); Phosphorus 2.9 mg/dL (2.5-4.9); Prothrombin Time (Protime)PT. 69.6 SECONDS (11.7-14.9); Sodium Level 141 mmol/L (136-145)
[2024-06-16 07:35] LABS: International Normalized Ratio 8.5
[2024-06-16] MEDS: Potassium Chloride Oral Tablet 20 MEQ 40 MEQ PO ×2 (09:19→12:18)
[2024-06-16] MEDS: Metoprolol(XL)Succ 100 MG Tablet PO (09:20)
[2024-06-16] MEDS: Loratadine 10 MG Tablet PO (09:20)
[2024-06-16] MEDS: Amiodarone 200 MG Tablet 100 MG PO (09:20)
[2024-06-16] MEDS: Donepezil HCl 5 MG Tablet PO (09:20)
[2024-06-16] MEDS: Ezetimibe 10 MG Tablet PO (09:21)
[2024-06-16] MEDS: buPROPion (XL) 150 MG TABLET.XL PO (09:21)
[2024-06-16] MEDS: Pantoprazole Sodium 40 MG Tablet PO ×2 (09:21→20:54)
[2024-06-16] MEDS: guaiFENesin 1,200 MG Tablet 1200 MG PO ×2 (09:22→20:54)
[2024-06-16] MEDS: Phytonadione (Vit K1) 5 MG TABLET 2.5 MG PO (09:23)
[2024-06-16] MEDS: PARoxetine 10 MG Tablet 30 MG PO (09:23)
[2024-06-16] MEDS: amLODIPine 2.5 MG Tablet PO (09:23)
[2024-06-16] MEDS: Azithromycin 500 MG in Dextrose 5%-Water (250mL Bag) 250 ML 250 MG IV (09:30)
[2024-06-16] MEDS: diazePAM 2 MG Tablet 1 MG PO (09:31)
[2024-06-16] MEDS: Meropenem 1 GM in 0.9% Normal Saline (100mL MB+) 100 ML IV ×2 (11:03→21:00)
[2024-06-16] MEDS: Ferrous Sulfate 325 MG Tablet PO (12:18)
[2024-06-16] MEDS: Ipratropium/Albuterol Sulfate 3 ML AMPUL.NEB INHALATION (20:08)
[2024-06-16] MEDS: Pravastatin 80 MG Tablet PO (20:54)
[2024-06-16] MEDS: MELATONIN 3 MG TABLET PO (20:54)
[2024-06-16] MEDS: Montelukast 10 MG Tablet PO (20:54)
[2024-06-16] MEDS: diazePAM 2 MG Tablet PO (20:54)
[2024-06-17] VITALS (9 sets, daily range): BP systolic 100–150; BP diastolic 70–99; PULSE 95–125; RESP 16–18; TEMP 36.3–36.7; O2SAT 87–100; BMI 21.9
[2024-06-17] MEDS: 0.9% Saline Lock 10 ML Syringe IV ×3 (05:16→19:19)
[2024-06-17] MEDS: Acetaminophen 325 MG Tablet 650 MG PO (06:45)
[2024-06-17 06:56] LABS: Absolute Lymphocyte Count 0.33 X10^3/uL (0.83-4.51); Absolute Neutrophil Count 14.6 X10^3/uL (2.0-7.7); Basophil# 0.01 X10^3/uL; Basophil% 0.1 % (0-1); Hematocrit 36.4 % (37-47); Hemoglobin 10.5 g/dL (12.0-15.0); Lymphocyte # 0.33 X10^3/ul (0.83-4.51); Lymphocyte % 2.1 % (19-41); Mean Corp Hgb Conc 28.8 g/dL (32-36); Mean Corpuscular Hgb 25.9 pg (27.0-32.0); Mean Corpuscular Volume 89.7 fL (81-99); Mean Platelet Vol. 10.4 fl (6.2-12.0); Monocyte# 0.34 X10^3/uL; Monocyte% 2.2 % (0-10); NRBC Flagged by Analyzer 0 % (0-5); Neutrophil # 14.64 X10^3/uL (2.7-7.7); Neutrophil % 94.9 % (47-70); POSITIVE DIFFERENTIAL YES; Platelet Count 334 K/mm3 (150-450); RBC Distribution Width CV 13.7 % (11.6-14.6); RBC Distribution Width SD 45.1 fl (35.1-43.9); Red Blood Count 4.06 M/mm3 (4.2-5.4); White Blood Count 15.4 K/mm3 (4.4-11.0)
[2024-06-17] MEDS: Budesonide Respules 0.5 MG/2 ML AMPUL.NEB. INHALATION ×2 (07:08→19:29)
[2024-06-17] MEDS: Ipratropium/Albuterol Sulfate 3 ML AMPUL.NEB INHALATION ×2 (07:08→19:28)
[2024-06-17 07:21] LABS: Anion Gap 2 (5-15); BUN 30 mg/dL (7-18); BUN/Creat Ratio 36.6 RATIO (10-20); Calcium,Total 9.7 mg/dL (8.5-10.1); Chloride 102 mmol/L (98-107); Creatinine, Serum 0.82 mg/dL (0.55-1.02); EST Glomerular Filtration Rate 71 mL/min (>60); Est Glom Filt Rate - Afr Amer 86 mL/min (>60); Estimated Creatinine Clearance 39.96 ml/min; Glucose 170 mg/dL (74-106); Potassium 4.3 mmol/L (3.5-5.1); Sodium Level 141 mmol/L (136-145)
[2024-06-17] MEDS: diazePAM 2 MG Tablet 1 MG PO (09:01)
[2024-06-17] MEDS: Potassium Chloride Oral Tablet 20 MEQ 40 MEQ PO (09:02)
[2024-06-17] MEDS: PARoxetine 10 MG Tablet 30 MG PO (09:02)
[2024-06-17] MEDS: Aspirin E.C. 81 MG Tablet 162 MG PO (09:03)
[2024-06-17] MEDS: Metoprolol(XL)Succ 100 MG Tablet PO (09:03)
[2024-06-17] MEDS: Donepezil HCl 5 MG Tablet PO (09:03)
[2024-06-17] MEDS: Furosemide 40 MG Tablet PO ×2 (09:04→17:10)
[2024-06-17] MEDS: Amiodarone 200 MG Tablet 100 MG PO (09:04)
[2024-06-17] MEDS: buPROPion (XL) 150 MG TABLET.XL PO (09:04)
[2024-06-17] MEDS: Pantoprazole Sodium 40 MG Tablet PO (09:04)
[2024-06-17] MEDS: guaiFENesin 1,200 MG Tablet 1200 MG PO ×2 (09:04→19:21)
[2024-06-17] MEDS: Loratadine 10 MG Tablet PO (09:05)
[2024-06-17] MEDS: Meropenem 1 GM in 0.9% Normal Saline (100mL MB+) 100 ML IV ×2 (09:07→21:27)
[2024-06-17] MEDS: Ezetimibe 10 MG Tablet PO (09:12)
[2024-06-17] MEDS: Azithromycin 250 MG Tablet 500 MG PO (09:13)
[2024-06-17] MEDS: Warfarin (BKC) 3 MG Tablet PO (10:52)
[2024-06-17] MEDS: Ferrous Sulfate 325 MG Tablet PO (10:52)
[2024-06-17] MEDS: diazePAM 2 MG Tablet PO (19:00)
[2024-06-17] MEDS: MELATONIN 3 MG TABLET PO (19:19)
[2024-06-17] MEDS: Pravastatin 80 MG Tablet PO (19:20)
[2024-06-17] MEDS: Montelukast 10 MG Tablet PO (19:20)
[2024-06-18 04:00] VITALS: BP 133/92; PULSE 104; RESP 18; TEMP 36.6; O2SAT 97
[2024-06-18 04:55] LABS: Absolute Lymphocyte Count 0.31 X10^3/uL (0.83-4.51); Absolute Neutrophil Count 11.6 X10^3/uL (2.0-7.7); Basophil# 0.01 X10^3/uL; Basophil% 0.1 % (0-1); Hematocrit 34.4 % (37-47); Hemoglobin 10.1 g/dL (12.0-15.0); Lymphocyte # 0.31 X10^3/ul (0.83-4.51); Lymphocyte % 2.5 % (19-41); Mean Corp Hgb Conc 29.4 g/dL (32-36); Mean Corpuscular Hgb 26.2 pg (27.0-32.0); Mean Corpuscular Volume 89.1 fL (81-99); Mean Platelet Vol. 10.5 fl (6.2-12.0); Monocyte# 0.37 X10^3/uL; NRBC Flagged by Analyzer 0 % (0-5); Neutrophil # 11.63 X10^3/uL (2.7-7.7); Neutrophil % 93.6 % (47-70); POSITIVE DIFFERENTIAL YES; Platelet Count 332 K/mm3 (150-450); RBC Distribution Width CV 13.7 % (11.6-14.6); RBC Distribution Width SD 44.9 fl (35.1-43.9); Red Blood Count 3.86 M/mm3 (4.2-5.4); White Blood Count 12.4 K/mm3 (4.4-11.0)
[2024-06-18 05:09] LABS: Prothrombin Time (Protime)PT. 31.3 SECONDS (11.7-14.9)
[2024-06-18 05:24] LABS: Anion Gap 0 (5-15); BUN 35 mg/dL (7-18); BUN/Creat Ratio 42.6 RATIO (10-20); Calcium,Total 9.6 mg/dL (8.5-10.1); Chloride 103 mmol/L (98-107); Creatinine, Serum 0.82 mg/dL (0.55-1.02); EST Glomerular Filtration Rate 71 mL/min (>60); Est Glom Filt Rate - Afr Amer 86 mL/min (>60); Estimated Creatinine Clearance 39.96 ml/min; Glucose 129 mg/dL (74-106); Potassium 4.2 mmol/L (3.5-5.1); Sodium Level 141 mmol/L (136-145)
[2024-06-18] MEDS: 0.9% Saline Lock 10 ML Syringe IV (05:56)
[2024-06-18 06:00] VITALS: BMI 21.8
[2024-06-18] MEDS: Budesonide Respules 0.5 MG/2 ML AMPUL.NEB. INHALATION (07:21)
[2024-06-18] MEDS: Ipratropium/Albuterol Sulfate 3 ML AMPUL.NEB INHALATION ×2 (07:21→13:32)
[2024-06-18 07:22] VITALS: PULSE 109; RESP 18; O2SAT 94
[2024-06-18 09:49] VITALS: BP 123/84; PULSE 118; RESP 18; TEMP 37.1; O2SAT 95
[2024-06-18] MEDS: Meropenem 1 GM in 0.9% Normal Saline (100mL MB+) 100 ML IV (09:56)
[2024-06-18] MEDS: Potassium Chloride Oral Tablet 20 MEQ 40 MEQ PO (09:58)
[2024-06-18] MEDS: Furosemide 40 MG Tablet PO (09:58)
[2024-06-18] MEDS: Ezetimibe 10 MG Tablet PO (09:58)
[2024-06-18 09:59] VITALS: BP 123/84; PULSE 118
[2024-06-18] MEDS: Loratadine 10 MG Tablet PO (09:59)
[2024-06-18] MEDS: guaiFENesin 1,200 MG Tablet 1200 MG PO (09:59)
[2024-06-18] MEDS: Metoprolol(XL)Succ 100 MG Tablet PO (09:59)
[2024-06-18] MEDS: Amiodarone 200 MG Tablet 100 MG PO (10:00)
[2024-06-18] MEDS: amLODIPine 2.5 MG Tablet PO (10:00)
[2024-06-18] MEDS: Donepezil HCl 5 MG Tablet PO (10:00)
[2024-06-18] MEDS: Ipratropium Bromide 0.06% NASAL SPRAY 1 SPRAY NASAL (10:01)
[2024-06-18] MEDS: Aspirin E.C. 81 MG Tablet 162 MG PO (10:01)
[2024-06-18] MEDS: buPROPion (XL) 150 MG TABLET.XL PO (10:02)
[2024-06-18] MEDS: diazePAM 2 MG Tablet 1 MG PO (10:22)
[2024-06-18] MEDS: PARoxetine 10 MG Tablet 30 MG PO (10:26)
[2024-06-18] MEDS: Ferrous Sulfate 325 MG Tablet PO (13:20)
[2024-06-18 13:33] VITALS: PULSE 103; RESP 18
[2024-06-18 15:11] VITALS: BP 126/85; PULSE 108; RESP 18; TEMP 36.6; O2SAT 97
== END 2024-06-18 15:42 | disposition hospice, home (50) | DRG 177 ==
LOC: ED 19:12 → MS3 19:48
PROVIDERS: Internal Medicine; Admitting Provider Family Medicine; Emergency Provider Emergency Medicine; PCP Family Medicine; Visit Provider Internal Medicine
DX: J15.69 Pneumonia due to other Gram-negative bacteria (principal); J96.21 Acute and chronic respiratory failure with hypoxia; I13.0 Hypertensive heart and chronic kidney disease with heart failure and stage 1 through stage 4 chronic kidney disease, or unspecified chronic kidney disease; I50.32 Chronic diastolic (congestive) heart failure; J44.0 Chronic obstructive pulmonary disease with (acute) lower respiratory infection; I48.20 Chronic atrial fibrillation, unspecified; J44.1 Chronic obstructive pulmonary disease with (acute) exacerbation; G31.83 Neurocognitive disorder with Lewy bodies; N18.30 Chronic kidney disease, stage 3 unspecified; D50.9 Iron deficiency anemia, unspecified; Z95.2 Presence of prosthetic heart valve; G47.33 Obstructive sleep apnea (adult) (pediatric); E78.5 Hyperlipidemia, unspecified; F41.8 Other specified anxiety disorders; J30.9 Allergic rhinitis, unspecified; I25.10 Atherosclerotic heart disease of native coronary artery without angina pectoris; K21.9 Gastro-esophageal reflux disease without esophagitis; E87.6 Hypokalemia; F02.80 Dementia in other diseases classified elsewhere, unspecified severity, without behavioral disturbance, psychotic disturbance, mood disturbance, and anxiety; Z95.1 Presence of aortocoronary bypass graft; Z79.01 Long term (current) use of anticoagulants; Z90.710 Acquired absence of both cervix and uterus; Z79.899 Other long term (current) drug therapy
CPT/HCPCS: 36415; 71046; 80048; 80053; 80076; 81001; 83605; 83690; 83735; 83880; 84100; 84145; 84484; 85025; 85610; 85730; 87040; 87070; 87077; 87086; 87184; 87186; 87205; 87449; 87631; 87633; 87641; 93005; 93306; 94640; 94668; 97162; 97166; 97530; 97535; 97802; 99285; J2185; J7030; A4216; J1940

== ENCOUNTER 2025-04-19 17:00 | Emergency (ER) | payer MEDICARE, OTHER, SELFPAY ==
[2025-04-19 17:05] VITALS: BP 99/67; PULSE 99; RESP 20; TEMP 37.2; O2SAT 100; BMI 16.8
--- NOTE | 2025-04-19 17:10 | EKG12_ITS ---
Test Reason : SOB/ANXIETY Blood Pressure : */* mmHG Vent. Rate : 100 BPM Atrial Rate : 100 BPM P-R Int : 164 ms QRS Dur : 86 ms QT Int : 354 ms P-R-T Axes : 16 41 59 degrees QTcB Int : 456 ms Normal sinus rhythm Normal ECG Confirmed by TICO MAC, JARRED ([id number]), visual effects editor HILDA WINTER ([id number]) on 04/20/2025 8:00:32 AM Referred By: Confirmed By: JARRED DOSHI MD
--- NOTE | 2025-04-19 17:20 | RAD_ITS ---
PROCEDURE: CHEST PA AND LATERAL 04/19/2025 REASON FOR EXAM: SHORTNESS OF BREATH TECHNIQUE: Procedure Code: RADCXR Modality: DX Procedure: CHEST PA AND LATERAL COMPARISON: 06/14/2024 FINDINGS: Cardiomegaly and prior sternotomy. [id number] right pleural effusion with smaller left effusion but no edema RAD/Chest PA and Lateral IMPRESSION: No interval change Reading [facility]
[2025-04-19 17:29] LABS: Hematocrit 35.6 % (37-47); Hemoglobin 9.9 g/dL (12.0-15.0); Immature Granulocytes Count 0.020 X10^3/uL (0.0-0.0); Mean Corp Hgb Conc 27.8 g/dL (32-36); Mean Corpuscular Volume 96.0 fL (81-99); Mean Platelet Vol. 10.6 fl (6.2-12.0); NRBC Flagged by Analyzer 0 % (0-5); POSITIVE DIFFERENTIAL YES; Platelet Count 219 K/mm3 (150-450); RBC Distribution Width CV 13.2 % (11.6-14.6); RBC Distribution Width SD 46.4 fl (35.1-43.9); Red Blood Count 3.71 M/mm3 (4.2-5.4); White Blood Count 5.8 K/mm3 (4.4-11.0)
--- OUTSIDE RECORDS SUMMARY | 2025-04-19 17:34 | XMS RPT_ITS | CCD ---
Author Organization [facility] Care Team Providers Care Food And Beverage Attendant Name Role Phone Rory Mckay MD Unavailable Aury Davison Unavailable Unavailable Aury Davison Unavailable Unavailable Marialuisa RN, Sanna Stahl Unavailable Unavailable Sheyla RN, Tia Bond Unavailable Ag Whitfield Unavailable Unavailable Kolby Kim MD Primary Care Provider Charissa GONZALEZ, Ivis Dumont Unavailable Unavail able Charissa GONZALEZ, Ivis Dumont Unavailable Rory Mckay Unavailable Dr. Kolby Kim Primary Care Provider Dr. Kolby Kim Referring Provider Dr. Jeremy Johnson Attending Provider Addie FLUE GAS ANALYST, FLUE GAS ANALYST-C Kleber Aguila Attending Provider Kolby Kim MD Primary Care Provider Charissa GONZALEZ, vIis Dumont Unavailable Rory Mckay Unavailable Kolby Kim MD Primary Care Provider Charissa GONZALEZ, Ivis Dumont Unavailable Rory Mckay Unavailable Sunny Estrella RN Unavailable Shawn Santana MD Unavailable Dr. Kolby Kim Primary Care Provider Dr. Kolby Kim Referring Provider Wendi FLUE GAS ANALYST, FLUE GAS ANALYST-C Joy Attending Provider Dr. Rory Mckay Attending Provider Kolby Kim MD Primary Care Provider Rory Mckay Unavailable Delores RN, Sunny Unavailable Luke MAC, Shawn Unavailable Delores RN, Sunny Unavailable Charissa GONZALEZ, Ivis Dumont Unavailable Dr. Kolby Kim Primary Care Provider Julio, Dr. Souza Referring Provider Dr. Jeremy Johnson Attending Provider Dr. Kolby Kim Primary Care Provider Julio, Dr. Souza Referring Provider Dr. Jeremy Johnson Attending Provider Dr. Forrest Smiley Emergency Provider Dr. Faviola Perry Admit Provider Dr. Faviola Perry Other Provider Dr. Anju Sanz Attending Provider Dr. Anju Sanz Other Provider Dr. Katherine Villarreal Attending Provider Dr. Katherine Villarreal Other Provider Dr. Trent Vizcaino Other Provider Dr. Velma Leavitt Emergency Provider [phone] Ivis Olvera Attending Provider Dr. Kolby Kim Primary Care Provider Dr. Ivis Olvera Admit Provider Dr. Ivis Olvera Other Provider Dr. Evgeny Galicia Other Provider Dr. Evgeny Galicia Attending Provider Dr. Chu Liz Other Provider Dr. Harry Pate Other Provider Dr. Harry Pate Attending Provider Dr. Kolby Kim Primary Care Provider Dr. Forrest Smiley Emergency Provider Dr. Faviola Perry Admit Provider Dr. Faviola Perry Other Provider Dr. Anju Sanz Attending Provider Dr. Anju Sanz Other Provider Dr. Katherine Villarreal Attending Provider Dr. Katherine Villarreal Other Provider Dr. Trent Vizcaino Other Provider Dr. Velma Leavitt Emergency Provider Dr. Ivis Olvera Attending Provider Dr. Ivis Olvera Admit Provider Dr. Ivis Olvera Other Provider Dr. Evgeny Galicia Other Provider Dr. Chu Liz Attending Provider Dr. Evgeny Galicia Attending Provider Dr. Chu Liz Other Provider Dr. Harry Pate Other Provider Dr. Harry Pate Attending Provider Dr. Kolby Kim Referring Provider Wendi FLUE GAS ANALYST, FLUE GAS ANALYST-C Joy Attending Provider GILBERTO VIRK Attending Unavailable KOLBY KIM Primary Care Unavailable KOLBY KIM Primary Care Unavailable GILBERTO VIRK Attending Unavailable KOLBY KIM Primary Care Unavailable GILBERTO VIRK Attending Unavailable TREVA CHIRINOS Attending Unavailable KOLBY KIM Primary Care Unavailable GILBERTO VIRK Attending Unavailable KOLBY KIM Primary Care Unavailable TREVA CHIRINOS Attending Unavailable KOLBY KIM Primary Care Unavailable Addie FLUE GAS ANALYST, FLUE GAS ANALYST-C Kleber Aguila Attending Provider Dr. Jeremy Johnson Attending Provider Dr. Jeremy Johnson Referring Provider Dr. Jeremy Johnson Other Provider Rory Mckay Unavailable Dr. Kolby Kim Primary Care Provider Julio, Dr. Souza Referring Provider Wendi FLUE GAS ANALYST, FLUE GAS ANALYST-C Joy Attending Provider Addie FLUE GAS ANALYST, FLUE GAS ANALYST-C Kleber Aguila Attending Provider Dr. Jeremy Johnson Attending Provider Dr. Jeremy Johnson Referring Provider Dr. Jeremy Johnson Other Provider Rory Mckay Unavailable Delores GONZALEZ, Sunny Unavailable Luke MAC, Shawn Unavailable Dr. Kolby Kim Primary Care Provider Dr. Jeremy Johnson Attending Provider Dr. Kolby Kim Referring Provider Addie FLUE GAS ANALYST, FLUE GAS ANALYST-C Kleber Aguila Attending Provider KOLBY KIM Referring Unavailable KOLBY KIM Primary Care Unavailable Rory Mckay MD Unavailable Delores GONZALEZ, Sunny Unavailable Becca Fenton RN Unavailable [phone] Kolby Kim MD Primary Care Provider Rory Mckay MD Unavailable Rory Mckay MD Unavailable Eliceo GONZALEZ, Becca Mark Unavailable Rory Mckay MD Unavailable Charissa GONZALEZ, Ivis Julia Unavailable [phone] Woody MAC, Rory Moyer Unavailable [phone] Honorio 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, Millie Unavailable Suppan 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, Kaelyn A Unavailable Suppan 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, Kaelyn A Unavailable Luke MAC, Shawn Unavailable Julio MAC, Dr. Souza Primary Care Provider Dr. Kolby Kim MD Referring Provider [phone] Wendi FLUE GAS ANALYST-C, Joy Attending Provider Brendan Simmons Attending Unavailable Bigfoot, Kolby Primary Care Unavailable Faviola Perry Consulting Unavailable Ryan Canseco Attending Unavailable Faviola Perry L Admitting Unavailable Bigfoot, Kolby Primary Care Unavailable Ryan Canseco Consulting Unavailable Rio, Harry Attending Unavailable Rio, Harry Consulting Unavailable Isiah Galaviz Attending Unavailable Bigfoot, Kolby Primary Care Unavailable Benito Ewing Attending Unavailable Julio, Kolby Primary Care Unavailable White Faviola L Consulting Unavailable White, Faviola L Admitting Unavailable Julio, Kolby Primary Care Unavailable Rio, Harry Attending Unavailable Ryan Canseco Consulting Unavailable Ryan Seaman Consulting Unavailable Jose, Mariana Consulting Unavailable Chaudhry, Talia Consulting Unavailable Alexi, Janell Consulting Unavailable Donald FLUE GAS ANALYST, Suzanne Consulting Unavailable Masci, Huma Consulting Unavailable Ryan Seaman R Consulting Unavailable Jose, Mariana Consulting Unavailable Chaudhry, Talia Consulting Unavailable Alexi, Janell Consulting Unavailable Donald FLUE GAS ANALYST, Suzanne Consulting Unavailable Masci, Huma Consulting Unavailable Faviola Perry Attending Unavailable Julio, Kolby Primary Care Unavailable Addie LEE, Kleber Aguila Attending Unavailable Julio, Kolby Primary Care Unavailable Julio, Kolby Referring Unavailable Wendi LEE, Joy Attending Unavailable Bigfoot, Kolby Primary Care Unavailable Julio, Kolby Referring Unavailable Addie FLUE GAS ANALYST, Kleber Aguila Attending Unavailable Julio, Kolby Primary Care Unavailable Bigfoot, Kolby Referring Unavailable Wendi FLUE GAS ANALYST, Joy Attending Unavailable Julio, Kolby Primary Care Unavailable Julio, Kolby Referring Unavailable JULIOKOLBY Swan J Primary Care Unavailable JULIO, KOLBY J Primary Care Unavailable JULIOKOLBY Primary Care Unavailable JULIO, KOLBY Yang Primary Care Unavailable JULIO, KOLBY Yang Primary Care Unavailable JULIO, KOLBY Yang Primary Care Unavailable JULIO, KOLBY Yang Primary Care Unavailable JULIO, KOLBY Yang Primary Care Unavailable JULIO, KOLBY Yang Primary Care Unavailable JULIO, KOLBY Yang Primary Care Unavailable JULIO, KOLBY Yang Primary Care Unavailable JULIO, KOLBY Yang Primary Care Unavailable JULIO, KOLBY Yang Attending Unavailable JULIO, KOLBY Yang Primary Care Unavailable JULIO, KOLBY Yang Primary Care Unavailable JULIO, KOLBY Yang Primary Care Unavailable SHAWN SANTANA Attending Unavailable SELF Referring Unavailable JULIO, KOLBY Yang Primary Care Unavailable JULIO, KOLBY Yang Primary Care Unavailable SHAWN SANTANA Attending Unavailable JULIO, KOLBY Yang Primary Care Unavailable JULIO, KOLBY Yang Primary Care Unavailable JULIO, KOLBY Yang Primary Care Unavailable JULIO, KOLBY Yang Primary Care Unavailable JULIO, KOLBY Yang Primary Care Unavailable JULIO, KOLBY Yang Primary Care Unavailable JULIO, KOLBY Yang Attending Unavailable JULIO, KOLBY Yang Primary Care Unavailable JULIO, KOLBY Yang Primary Care Unavailable JULIO, KOLBY Yang Primary Care Unavailable JULIO, KOLBY Yang Primary Care Unavailable JULIO, KOLBY Yang Primary Care Unavailable JULIO, KOLBY Yang Primary Care Unavailable JULIO, KOLBY Yang Primary Care Unavailable Allergies Allergy Classification Reported Allergen(s) Allergy Type Date of Onset Reaction(s) Facility Angiotensin Converting Enzyme (ARIADNA) Inhibitors (4 sources) Lisinopril Drug Allergy 012 Cough [facility] Anti-Epileptic Agents (4 sources) gabapentin Drug Allergy 016 Intolerance [facility] Dextromethorphan (4 sources) Dextromethorphan Drug Allergy 019 Other: See Comments, Mental Status Change [facility] donepezil (4 sources) donepezil Drug Allergy 020 Myalgia [facility] HMG-CoA Reductase Inhibitors (statins) (8 sources) rosuvastatin Drug Allergy 016 GI Upset, Myalgia [facility] Work Phone: NSAIDs (4 sources) celecoxib Drug Allergy 007 Intolerance [facility] Work Phone: Opioid Agonists (12 sources) Codeine Drug Allergy 002 Itching [facility] Penicillins (antibiotic) (4 sources) Penicillins Drug Allergy 002 Other: See Comments [facility] Prochlorperazine (4 sources) Prochlorperazine Drug Allergy 012 Other: See Comments [facility] risperiDONE (4 sources) risperiDONE Drug Allergy 022 Other: See Comments [facility] Serotonin Reuptake Inhibitors (SSRIs) (4 sources) FLUoxetine Drug Allergy 014 Other: See Comments [facility] Sulfonamides (antibiotic) (4 sources) Sulfonamides (Antibiotic) Drug Allergy 002 Other: See Comments [facility] (6 sources) Adhesive Tape; Translations: [ADHESIVE BANDAGES] allergy to substance blisters [facility] Work Phone: [phone] (12 sources) Angiotensin Converting Enzyme (Ariadna) Inhibitors drug allergy 011 Cough [facility] Work Phone: [phone] (6 sources) celecoxib drug allergy 012 [facility] Work Phone: [phone] (20 sources) codeine; Translations: [CODEINE] drug allergy 002 Itching [facility] Work Phone: [phone] (12 sources) Hmg-Coa Reductase Inhibitors (Statins) drug allergy 011 Muscle weakness & fatigue [facility] Work Phone: [phone] (18 sources) levoFLOXacin drug allergy 011 Lumps [facility] Work Phone: [phone]) (20 sources) lisinopril; Translations: [LISINOPRIL] drug allergy 011 Cough [facility] Work Phone: [phone] (20 sources) oxyCODONE; Translations: [OXYCODONE] drug allergy 002 Itching [facility] Work Phone: [phone] (12 sources) penicillin v drug allergy 010 [facility] Work Phone: [phone] (6 sources) prochlorperazine drug allergy [facility] Work Phone: [phone] (6 sources) Sulfonamides (Antibiotic) drug allergy [facility] Work Phone: [phone] (6 sources) traMADol drug allergy 012 itching [facility] Work Phone: (20 sources) Adhesive agent; Translations: [ADHESIVE] Drug Allergy 009 Rash [facility] Work Phone: Comment on above: BLISTERS (20 sources) atorvastatin; Translations: [ATORVASTATIN CALCIUM] Drug Allergy 016 Myalgia [facility] Work Phone: (20 sources) celecoxib; Translations: [CELECOXIB] Drug Allergy 007 Other: See Comments, Intolerance [facility] Work Phone: (20 sources) Dextromethorphan; Translations: [DEXTROMETHORPHAN] Drug Allergy 019 Other: See Comments, Mental Status Change [facility] (20 sources) donepezil; Translations: [DONEPEZIL] Drug Allergy 020 Myalgia [facility] Work Phone: (20 sources) FLUoxetine; Translations: [FLUOXETINE HCL] Drug Allergy 014 Other: See Comments [facility] (20 sources) gabapentin; Translations: [GABAPENTIN] Drug Allergy 016 Intolerance [facility] Work Phone: [phone] (20 sources) Penicillins; Translations: [PENICILLINS] Drug Intolerance 002 Other: See Comments [facility] Work Phone: [phone] (20 sources) Prochlorperazine; Translations: [PROCHLORPERAZINE] Drug Allergy 012 Other: See Comments [facility] (20 sources) rosuvastatin; Translations: [ROSUVASTATIN CALCIUM] Drug Allergy 016 GI Upset [facility] Work Phone: [phone] (20 sources) Sulfonamides (Antibiotic); Translations: [SULFA (SULFONAMIDE ANTIBIOTICS)] Drug Allergy 002 Other: See Comments [facility] Work Phone: [phone] (20 sources) traMADol; Translations: [TRAMADOL HCL] Drug Allergy 012 Itching [facility] Work Phone: (20 sources) No Latex Allergy [Other] Propensity to adverse reactions [facility] (14 sources) levoFLOXacin Drug Allergy pain in legs and swelling [facility] Comment on above: PAIN IN LEG AND SWEL LING (15 sources) oxyCODONE; Translations: [oxycodone HCl] Drug Allergy Itching [facility] Comment on above: AND MAKES HEAD FEEL FUNNY (15 sources) Prochlorperazine; Translations: [prochlorperazine maleate] Drug Allergy Low blood pressure [facility] (20 sources) risperiDONE; Translations: [RISPERIDONE] Drug Allergy Other: See Comments [facility] (15 sources) prochlorperazine edisylate; Translations: [prochlorperazine edisylate] Propensity to adverse reactions Low blood pressure [facility] (20 sources) Penicillins Drug Intolerance Other: See Comments [facility] Work Phone: (12 sources) Penicillins Propensity to adverse reactions heart palpitations [facility] Comment on above: HEART PALPITATIONS (12 sources) Sulfonamides (Antibiotic) Allergy to substance Swelling [facility] (2 sources) OTHER; Translations: [OTHER] Propensity to adverse reactions (disorder) [facility] (20 sources) Penicillins Drug Intolerance Other: See Comments [facility] (1 source) celecoxib Drug Allergy [facility] (1 source) Dextromethorphan Drug Allergy [facility] (1 source) levoFLOXacin Drug Allergy [facility] (1 source) Penicillins Drug allergy (disorder) [facility] (1 source) risperiDONE Drug Allergy [facility] (1 source) Sulfonamides (Antibiotic) Drug allergy (disorder) [facility] (1 source) traMADol Drug Allergy [facility] Medications Current Medications Medication Drug Class(es) Dates Sig (Normalized) Sig (Original) acetaminophen 500 mg oral tablet (20 sources) Start: 07-07-2020 End: 06-14-2024 take 1 tablet by mouth every six hours as needed for pain Acetaminophen 650 MG tablet extended release Discontinued 650 mg PO EVERY 6 HOURS as needed for BACK PAIN July 07, 2020 1:00am June 14, 2024 6:47pm Start: 12-03-2017 End: 12-06-2017 take 1 tablet by mouth every four hours as needed acetaminophen (TYLENOL EXTRA STRENGTH) 500 mg tablet Take 1 tablet by mouth every 4 hours as needed for Pain. RANGE FREQ? 0 12/07/2017 Active Start: 12-03-2017 End: 12-06-2017 take 2 tablets by mouth every four hours as needed for pain Acetaminophen 500 MG tablet Discontinued 1000 mg PO EVERY 4 HOURS NEEDED as needed for Pain December 03, 2017 12:00am December 06, 2017 5:36pm Start: 12-03-2017 End: 12-06-2017 take 1000 mg by mouth every four hours as needed Acetaminophen Discontinued 1000 MG PO EVERY 4 HOURS NEEDED December 03, 2017 12:00am December 06, 2017 5:36pm TYLENOL EXTRA ST RENGTH 500 MG TABS take 2 tablets every 4 to 6 hrs as needed. ACETAMINOPHEN [id number] Ag Whitfield Comment on above: Take 1 tablet by chang th every 4 hours as needed for Pain. RANGE FREQ? Administered Medications Medication Order MAR Action Action Date Dose Rate Site tuberculin skin test, unspecified formulation Given 11/17/2024 0.1 mL tuberculin skin test, unspecified formulation Given 01/05/2025 (2 sources) Administered Medications Medication Order MAR Action Action Date Dose Rate Site tuberculin skin test, unspecified formulation Given 11/17/2024 0.1 mL tuberculin skin test, unspecified formulation Given 01/05/2025 albuterol 0.83 mg/ml inhalation solution (20 sources) beta2-Adrenergic Agonist Start: 03-23-20 take 2.5 mg by inhalation twice daily Albuterol Sulfate 2.5 mg /3 mL (0.083 %) solution for nebulization Active 2.5 mg INHALATION TWICE A DAY 60 March 23, 2025 1:58pm Bronchiectasis Bronchiectasis, uncomplicated Start: 03-08-2023 End: 03-20-2024 Albuterol Sulfate 90 mcg/act uation HFA aerosol inhaler Active 2 NMA INHALATION EVERY 6 HOURS as needed for shortness of breath or wheezing 8.5 March 20, 2024 11:44am administer with spacer Start: 03-08-2023 take 1 puff(s) by in halation every six hours Albuterol Sulfate Active 2 PUFF INHALATION EVERY 6 HOURS March 08, 2023 12:00am administer with spacer Start: 10-04-2021 take 1 puff(s) by in halation every four hours Albuterol Sulfate Active 2 PUFF INHALATION Q4H 8.5 October 04, 2021 12:41pm administer with spacer Start: 06-21-2021 End: 02-26-2023 albuterol (PROVENTIL) 2.5 mg /3 mL (0.083 %) nebulizer solution Indications: Moderate persistent asthma without complication (HCC) Use 3 mL via nebulizer every 6 hours as needed for wheezing/shortness of breath. DX: J45.40 Hx of moderate persistent Asthma 360 mL 3 02/26/2023 Active Start: 05-21-2021 End: 03-23-2025 take 2.5 mg by inhalation every four hours as needed for wheezing Albuterol Sulfate 2.5 MG/3 ML solution for nebulization Discontinued 2.5 mg INHALATION EVERY 4 HOURS NEEDED 25 May 21, 2021 12:00am March 23, 2025 2:00pm Use q4 hours and PRN for wheezing Start: 01-09-2020 End: 06-06-2021 albuterol (PROVENTIL) 2.5 mg /3 mL (0.083 %) nebulizer solution Indications: Moderate persistent asthma without complication Use 3 mL via nebulizer every 6 hours as needed for Wheezing/Shortness of Breath. DX: J45.40 Hx of moderate persistent Asthma 1 Package 5 01/09/2020 06/06/2021 Discontinued Start: 08-13-2019 End: 03-08-2023 Albuterol Sulfate 90 mcg/act uation HFA aerosol inhaler Discontinued 2 NMA INHALATION Q4H as needed for shortness of breath or wheezing 8.5 December 07, 2022 10:15am March 08, 2023 4:47pm administer with spacer Start: 08-13-2019 End: 03-08-2023 take 1 puff(s) by inhalation every four hours Albuterol Sulfate (Proair Hfa) 90 mcg/actuation HFA aerosol inhaler Discontinued 2 PUFF INHALATION Q4H January 25, 2021 3:46pm November 29, 2021 1:09pm Start: 08-13-2019 End: 12-07-2022 Start: 05-02-2019 take 2 puff(s) by in halation every four hours as needed albuterol HFA (PROAIR HFA) 90 mcg/actuation inhaler Inhale 2 Puffs as instructed every 4 hours as needed. 3 Inhaler 05/02/2019 Active Start: 03-08-2018 End: 08-13-2019 Albuterol Sulfate (Ventolin Hfa) 90 mcg/actuation HFA aerosol inhaler Discontinued 2 NMA INHALATION Q4H as needed for shortness of breath or wheezing 14 01March 08, 2018 12:00am August 13, 2019 12:27pm Start: 03-08-2018 End: 08-13-2019 take 1 puff(s) by inhalation every four hours Albuterol Sulfate (Ventolin Hfa) 90 mcg/actuation HFA aerosol inhaler Discontinued 2 PUFF INHALATION Q4H March 08, 2018 12:00am August 13, 2019 12:27pm Start: 03-08-2018 End: 08-13-2019 Start: 02-21-2018 End: 03-18-2018 Albuterol Sulfate 90 mcg/act uation HFA aerosol inhaler Discontinued 2 NMA INHALATION Q4H as needed for shortness of breath or wheezing 3 February 21, 2018 12:00am March 18, 2018 9:50am administer with spacer Start: 02-21-2018 End: 03-18-2018 take 1 puff(s) by inhalation every four hours Albuterol Sulfate Discontinued 2 PUFF INHALATION Q4H February 21, 2018 12:00am March 18, 2018 9:50am administer with spacer Start: 02-21-2018 End: 03-18-2018 Start: 12-03-2017 End: 03-18-2018 Albuterol Sulfate 1 PUFF inh aler Discontinued 2 NMA INHALATION EVERY 4 HOURS NEEDED as needed for Sob &/Or Wheezing December 03, 2017 12:00am March 18, 2018 9:50am Start: 12-03-2017 End: 03-18-2018 take 1 puff(s) by inhalation every four hours as needed Albuterol Sulfate Discontinued 2 PUFF INHALATION EVERY 4 HOURS NEEDED December 03, 2017 12:00am March 18, 2018 9:50am Start: 12-03-2017 End: 03-18-2018 Start: 06-18-2013 PROAIR HFA 108 (90 Base) MCG/ACT AERS as needed ALBUTEROL SULFATE [id number] Harumi Y DeFinis Start: 06-18-2013 PROAIR HFA 108 (90 Base) MCG/ACT AERS as needed ALBUTEROL SULFATE [id number] Harumi Y DeFinis Start: 06-18-2013 PROAIR HFA 108 (90 Base) MCG/ACT AERS as needed ALBUTEROL SULFATE [id number] Rory Mckay MD Comment on above: Inhale 2 Puffs as in structed every 4 hours as needed. Use 3 mL via nebuliz er every 6 hours as needed for wheezing/shortness of breath. DX: J45.40 Hx of moderate persistent Asthma amiodarone hydrochloride 200 mg oral tablet (20 sources) Antiarrhythmic Start: 07-09-2020 End: 09-25-2023 amiodarone (PACERONE) 200 mg tablet Take 100 mg by mouth once daily. 07/09/2020 Active Start: 07-09-2020 End: 07-28-2020 take 1 tablet by mouth three times daily Amiodarone 200 MG tablet Discontinued 200 mg PO THREE TIMES A DAY 10 July 09, 2020 1:00am July 28, 2020 12:08pm Take first dose tonight Start: 07-09-2020 End: 07-28-2020 take 1 tablet by mouth twice daily Amiodarone 200 MG tablet Discontinued 200 mg PO TWICE A DAY July 09, 2020 1:00am July 28, 2020 12:08pm First dose 07/13 Start: 07-09-2020 End: 08-02-2020 take 1 tablet by mouth once daily Amiodarone 200 MG tablet Discontinued 200 mg PO DAILY July 09, 2020 1:00am August 02, 2020 1:45pm First dose 07/27 Start: 07-09-2020 End: 10-20-2022 take 100 mg by mouth once daily Amiodarone Discontinue d 100 MG PO DAILY 45 August 28, 2022 4:35pm October 20, 2022 7:52pm Comment on above: Take 100 mg by mouth once daily. amLODIPine 2.5 mg oral tablet (20 sources) Dihydropyridine Calcium Channel Milka Start: 11-04-19 End: 11-29-19 take 1 tablet by mouth once daily amLODIPine (NORVASC) 2.5 mg tablet Indications: NSTEMI (non-ST elevated myocardial infarction) (HCC) , Paroxysmal atrial fibrillation (HCC) Take 1 tablet by mouth once daily. 11/06/2022 Active Start: 12-19-2010 End: 09-18-2013 take 1 tablet by mouth once daily Amlodipine 5 MG tablet Discontinued 5 mg PO DAILY June 06, 2013 1:00am July 17, 2013 3:48pm Comment on above: Take 1 tablet by chang th once daily. aspirin 81 mg delayed release oral tablet (20 sources) Platelet Aggregation Inhibitor, Nonsteroidal Anti-inflammatory Drug Start: 06-14-2024 take 2 tablets by mouth at breakfast Aspirin 81 mg Tablet,Delayed Release (Dr/Ec) Active 162 mg PO WITH BREAKFAST June 14, 2024 1:00am Start: 11-03-2022 End: 06-14-2024 take 1 tablet by mouth at breakfast Aspirin 81 mg Tablet,Delayed Release (Dr/Ec) Discontinued 81 mg PO WITH BREAKFAST 30 30 2 November 03, 2022 12:00am June 14, 2024 6:52pm Start: 01-14-2015 End: 11-03-2022 take 162 mg by mouth once daily Aspirin Discontinued 1 62 MG PO DAILY September 04, 2017 10:33am November 03, 2022 12:23pm Start: 10-14-2013 End: 11-03-2022 take 2 tablets by mouth once daily aspirin 81 mg chewable tablet Take 2 tablets by mouth once daily. 0 10/14/2013 Active Start: 03-10-2009 take 1 tablet by chang th once daily ASPIRIN 81 MG TABS One tablet by mouth daily ASPIRIN [id number] Ag Whitfield Start: 03-10-2009 take 1 tablet by chang th once daily ASPIRIN 81 MG TABS One tablet by mouth daily ASPIRIN [id number] Ag Whitfield Start: 03-10-2009 take 1 tablet by chang th once daily ASPIRIN EC 81 MG TBEC One tablet by mouth daily ASPIRIN [id number] Rory Mckay MD Comment on above: Take 2 tablets by mo [facility] once daily. 24 hr buPROPion hydrochloride 150 mg extended release oral tablet (20 sources) Aminoketone Start: take 1 tablet by mouth once daily buPROPion XL (WELLBUTRIN XL) 150 mg 24 hr tablet Indications: Depression, unspecified depression type Take 1 tablet by mouth once daily. 90 tablet 3 07/25/2023 Active Start: 02-09-2017 take 1 tablet by chang th once daily WELLBUTRIN SR 150 MG [id number] One tablet by mouth daily BUPROPION HCL [id number] Tia Hampton PA-C Start: 08-10-2016 take 1 tablet by chang th once daily WELLBUTRIN SR 150 MG [id number] One tablet by mouth daily BUPROPION HCL [id number] Tia Hampton PA-C Start: 11-15-2015 End: 05-30-2022 take 1 tablet by mouth once daily buPROPion XL (WELLBUTRIN XL) 150 mg 24 hr tablet Indications: Depression, unspecified depression type Take 1 tablet by mouth once daily. 90 tablet 3 07/25/2023 Active Comment on above: Take 1 tablet by chang once daily. cephalexin 500 mg oral capsule (20 sources) Cephalosporin Antibacterial Start: take 500 mg by mouth every six hours Cephalexin Active 500 MG PO EVERY 6 HOURS December 28, 2021 10:06pm Start: 03-26-2021 End: 03-29-2021 take 1 capsule by mouth every six hours Cephalexin 500 MG capsule Discontinued 500 mg PO EVERY 6 HOURS 40 0 March 26, 2021 12:00am March 29, 2021 12:35pm Start: 10-30-2013 End: 11-21-2013 take 1 tablet by mouth three times daily KEFLEX 250 MG CAPS One tablet by mouth three times daily CEPHALEXIN [id number] Tia Hampton PA-C Start: 10-30-2013 End: 11-21-2013 take 1 tablet by mouth three times daily KEFLEX 250 MG CAPS One tablet by mouth three times daily CEPHALEXIN [id number] Tia Hampton PA-C Start: 08-02-2012 End: 09-13-2012 take 1 tablet by mouth three times daily KEFLEX 500 MG CAPS One tablet by mouth three times daily CEPHALEXIN [id number] Lenore White MD Start: 08-02-2012 End: 09-13-2012 take 1 tablet by mouth three times daily KEFLEX 500 MG CAPS One tablet by mouth three times daily CEPHALEXIN [id number] Lenore White MD clindamycin 300 mg oral capsule (12 sources) Lincosamide Antibacterial Start: 04-02-2025 End: 04-02-2025 take 2 capsules by mouth once clindamycin (CLEOCIN) 300 mg capsule Indications: Aortic valve disorder Take 2 capsules by mouth one time only for 1 dose. 2 capsule 04/02/2025 04/02/2025 Active Start: 02-13-2024 End: 02-13-2024 take 2 capsules by mouth once clindamycin (CLEOCIN) 30 0 mg capsule Indications: Aortic valve disorder Take 2 capsules by mouth one time only for 1 dose. 2 capsule 0 02/13/2024 02/13/2024 Active Start: 01-16-2024 End: 01-16-2024 take 2 capsules by mouth once clindamycin (CLEOCIN) 30 0 mg capsule Indications: Aortic valve disorder Take 2 capsules by mouth one time only for 1 dose. 2 capsule 0 01/16/2024 01/16/2024 Active Start: 04-04-2018 End: 07-08-2021 clindamycin (CLEOCIN) 300 mg capsule Indications: Aortic valve disorder TAKE 2 CAPSULES ONE HOUR PRIOR TO DENTAL PROCEDURE. 4 capsule 2 04/04/2018 07/08/2021 Discontinued Start: 12-19-2010 take 2 tablets by [facility] every hour CLINDAMYCIN HCL 300 MG CAPS 2 tablets by mouth 1 hr prior to procedure CLINDAMYCIN HCL [id number] Tia Hampton PA-C diazePAM 2 mg oral tablet (20 sources) Benzodiazepine Start: 06-11-2023 End: 11-12-2024 take 1 mg by mouth four times daily Diazepam 2 mg tablet Active 1 mg PO 4 TIMES DAILY November 12, 2024 11:50am Start: 03-22-2023 take 1 tablet by chang th twice daily in the morning, then take 0.5-1 tablets by mouth in the evening diazePAM (VALIUM) 2 mg tablet Take by mouth twice daily. Take 1 tablet in the AM and 1/2-1 tablet in the evening. 03/22/2023 Active Comment on above: Take by mouth twice daily. Take 1 tablet in the AM and 1/2-1 tablet in the evening. ezetimibe 10 mg oral tablet (20 sources) Dietary Cholesterol Absorption Inhibitor Start: 12-07-2008 End: 10-21-2024 ezetimibe(ZETIA 10 MG TAB) Take one(1) tablet daily. 0 12/07/2008 Active Comment on above: Take one(1) tablet d aily. ferrous sulfate 325 mg oral tablet (20 sources) Start: 11-12-2024 take 1 tablet by mouth once daily Ferrous Sulfate 325 mg (65 mg iron) tablet Active 325 mg PO daily November 12, 2024 11:52am Check with primary doctor Start: 12-25-2023 End: 06-25-2024 take 1 tablet by mouth twice daily at mealtime ferrous sulfate 325 mg (65 mg iron) tablet Indications: Anemia, unspecified type , Iron deficiency Take 1 tablet by mouth two times a day with meals. 180 tablet 1 12/28/2023 06/25/2024 Active Start: 11-29-2021 End: 11-12-2024 take 1 tablet by mouth twice daily Ferrous Sulfate 325 mg (65 mg iron) tablet Discontinued 325 mg PO TWICE A DAY November 29, 2021 12:00am November 12, 2024 11:55am Check with primary doctor Start: 05-04-2021 End: 12-12-2023 take 1 tablet by mouth twice daily at mealtime ferrous sulfate 325 mg (65 mg iron) tablet Indications: Anemia, unspecified type , Iron deficiency Take 1 tablet by mouth two times a day with meals. 180 tablet 1 06/15/2023 12/12/2023 Active Start: 04-26-2020 End: 09-02-2020 take 1 tablet by mouth twice daily at mealtime ferrous sulfate 325 mg (65 mg iron) tablet Indications: Iron deficiency anemia, unspecified iron deficiency anemia type Take 1 tablet by mouth twice daily with meals. 30 tablet 5 04/26/2020 09/02/2020 Discontinued Start: 05-03-2017 End: 02-04-2020 take 1 tablet by mouth once daily Ferrous Sulfate 325 MG tablet Discontinued 325 mg PO DAILY May 03, 2017 12:00am February 04, 2020 11:36am IRON SUPPLEMENT Start: 06-04-2013 take 1 tablet by chang th twice daily IRON SUPPLEMENT 325 (65 FE) MG TABS One tablet by mouth twice daily FERROUS SULFATE [id number] Lenore White MD Start: 06-04-2013 End: 07-15-2014 take 1 tablet by mouth twice daily IRON SUPPLEMENT 325 (65 FE) MG TABS One tablet by mouth twice daily FERROUS SULFATE [id number] Rory Mckay MD Comment on above: Take 1 tablet by chang th twice daily with meals. Take 1 tablet by chang th two times a day with meals. furosemide 40 mg oral tablet (20 sources) Loop Diuretic Start: 06-18-2024 take 1 tablet by mouth twice daily Furosemide 40 mg Tablet Active 40 mg PO TWICE DAILY 60 30 0 June 18, 2024 1:00am Start: 05-03-2017 End: 09-24-2024 take 1 tablet by mouth once daily furosemide (LASIX) 40 mg tablet Indications: Dyspnea and respiratory abnormalities Take 1 tablet by mouth once daily. 90 tablet 1 12/25/2023 Active Start: 05-03-2017 End: 12-06-2017 take 1 tablet by mouth twice daily Furosemide 40 MG tablet Discontinued 40 mg PO TWICE A DAY May 03, 2017 12:00am December 06, 2017 5:56pm WATER PILL Start: 10-23-2013 End: 11-21-2013 LASIX 20 MG TABS 2 tablets b y mouth daily for 14 days, then 1 tablet by mouth daily for 14 days, then stop FUROSEMIDE [id number] Tia Hampton PA-C Start: 09-22-2013 take 1 tablet by chang th twice daily LASIX 40 MG TABS One tablet by mouth twice daily FUROSEMIDE [id number] Rory Mckay MD Start: 08-19-2013 take 1 tablet by chang th once daily FUROSEMIDE 40 MG TABS One tablet by mouth daily FUROSEMIDE [id number] Rory Mckay MD Comment on above: [facility] ipratropium bromide 0.021 mg/actuat metered dose nasal spray (20 sources) Anticholinergic Start: 06-11-2023 Ipratropium [place] (ATROVENT) 21 mcg (0.03 %) nasal spray 06/11/2023 Active Start: 06-11-2023 Ipratropium Br omide 21 mcg (0.03 %) spray,non-aerosol Active 2 NMA INTRANASAL TWICE A DAY 26 10June 11, 2023 1:00am administer into each nostril 24 hr metoprolol succinate 100 mg extended release oral tablet (20 sources) beta-Adrenergic Milka Start: 08-28-2023 take 1 tablet by mouth once daily metoprolol succinate ER (TOPROL XL) 100 mg Take 1 tablet by mouth once daily. 90 tablet 1 08/28/2023 Active Start: 08-06-2023 End: 01-24-2024 take 2 tablets by mouth once daily Metoprolol Succinate 100 mg tablet extended release 24 hr Discontinued 50 mg PO DAILY August 06, 2023 2:57pm January 24, 2024 2:16pm Start: 11-03-2022 End: 08-06-2023 take 1 tablet by mouth once daily Metoprolol Succinate 100 mg Tablet Extended Release 24 Hr Discontinued 100 mg PO DAILY November 03, 2022 12:00am August 06, 2023 2:58pm Start: 10-14-2013 End: 11-06-2022 take 1 tablet by mouth once daily Metoprolol Succinate 50 mg tablet extended release 24 hr Discontinued 0 .ROUTE .COMPLEX 90 July 03, 2022 9:46pm October 20, 2022 7:52pm TAKE 1 TABLET BY MOUTH DAILY FOR BLOOD PRESSURE Comment on above: [facility] Take 2 tablets by [facility] once daily. montelukast 10 mg oral tablet (20 sources) Leukotriene Receptor Antagonist Start: End: take 1 tablet by mouth once daily at bedtime montelukast (SINGULAIR) 10 mg tablet Indications: Uncomplicated asthma, unspecified asthma severity, unspecified whether persistent (HCC) Take 1 tablet by mouth daily at bedtime. 90 tablet 3 10/08/2023 Active Start: 08-19-2013 take 1 tablet by chang th once daily SINGULAIR 10 MG TABS One tablet by mouth daily MONTELUKAST SODIUM [id number] Sanna Elam RN Comment on above: Take 1 tablet by chang th daily at bedtime. Nebulizer (20 sources) Start: 12-07-2017 Nebulizer NEBULIZER FOR HOME USE and necessary supplies. DX: Hypoxemia, Pneumonia and Hemoptisis 1 Each 12/07/2017 Active Start: 12-07-2017 Nebulizer NEBU LIZER FOR HOME USE and necessary supplies. DX: Hypoxemia, Pneumonia and Hemoptisis 1 Each 0 12/07/2017 Active Comment on above: NEBULIZER FOR HOME U SE and necessary supplies. DX: Hypoxemia, Pneumonia and Hemoptisis nitroglycerin 0.4 mg sublingual tablet (20 sources) Nitrate Vasodilator Start: 11-03-2022 nitroglycerin sublingual (NITROQUICK) 0.4 mg SL tablet 11/03/2022 Active Start: 11-03-2022 Nitroglycerin 0.4 mg Tablet, Sublingual Active 0.4 mg SL Q5M as needed for Cardiac/Chest Pain 30 30 November 03, 2022 12:00am Comment on above: DISSOLVE ONE TABLET UNDER THE TONGUE EVERY 5 MINUTES NEEDED FOR CARDIAC/CHEST PAIN pantoprazole 40 mg delayed release oral tablet (20 sources) Proton Pump Inhibitor Start: 06-18-20 24 take 1 tablet by mouth once daily Pantoprazole 40 MG tablet Active 40 mg PO DAILY 7 June 18, 2024 1:45pm ACID REFLUX Start: 10-23-2013 End: 06-18-2024 take 1 tablet by mouth twice daily pantoprazole DR (PROTONIX) 40 mg tablet Indications: Gastroesophageal reflux disease without esophagitis Take 1 tablet by mouth two times a day. 180 tablet 3 02/13/2024 Active Start: 10-23-2013 Start: 10-23-2013 take 1 tablet by chang th twice daily PROTONIX 40 MG TBEC One tablet by mouth twice daily PANTOPRAZOLE SODIUM [id number] Tia Hampton PA-C Start: 10-23-2013 take 1 tablet by chang th once daily PROTONIX 40 MG TBEC One tablet by mouth daily PANTOPRAZOLE SODIUM [id number] Sanna Elam RN Start: 08-19-2013 take 1 tablet by chang th once daily PROTONIX 20 MG TBEC One tablet by mouth daily PANTOPRAZOLE SODIUM [id number] Sanna Elam RN Start: 03-10-2009 End: 10-05-2011 take 1 tablet by mouth twice daily PROTONIX 40 MG TBEC One tablet by mouth twice daily PANTOPRAZOLE SODIUM [id number] Tia Hampton PA-C Start: 03-10-2009 End: 10-05-2011 take 1 tablet by mouth twice daily PROTONIX 40 MG TBEC One tablet by mouth twice daily PANTOPRAZOLE SODIUM [id number] Tia Hampton PA-C Comment on above: Take 1 tablet by chang th twice daily. PARoxetine hydrochloride 30 mg oral tablet (20 sources) Serotonin Reuptake Inhibitor Start: 12-07-2022 End: 08-06-2023 Paroxetine Hcl 20 mg tablet Discontinued 30 mg PO DAILY December 07, 2022 9:47am August 06, 2023 2:28pm Check with primary doctor Start: 12-07-2022 take 30 mg by mouth once daily Paroxetine Hcl Active 30 MG PO DAILY December 07, 2022 9:47am Start: 12-04-2022 End: 11-21-2024 take 1 tablet by mouth once daily PARoxetine (PAXIL) 30 mg tablet Indications: Depression, unspecified depression type Take 1 tablet by mouth once daily. 90 tablet 3 11/22/2023 Active Start: 11-29-2021 End: 12-07-2022 take 10 mg by mouth twice daily Paroxetine Hcl 20 mg t ablet Discontinued 10 mg PO TWICE A DAY November 29, 2021 1:12pm December 07, 2022 9:47am Check with primary doctor Start: 03-26-2021 End: 12-07-2022 take 1 tablet by mouth once daily Paroxetine Hcl 20 mg tablet Discontinued 20 mg PO DAILY March 26, 2021 12:00am November 29, 2021 1:16pm Start: 03-26-2021 End: 12-07-2022 take 10 mg by mouth twice daily Paroxetine Hcl Discont inued 10 MG PO TWICE A DAY November 29, 2021 1:12pm December 07, 2022 9:47am Start: 12-01-2020 End: 02-20-2022 take 0.5 tablet by mouth once daily PARoxetine (PAXIL) 20 mg tablet Indications: Depression, unspecified depression type Take 0.5 tablets by mouth once daily. 12/01/2020 02/20/2022 Discontinued Start: 07-15-2014 take 1 tablet by chang th once daily PAROXETINE HCL 20 MG TABS One tablet by mouth daily PAROXETINE HCL [id number] Ag Camarena Catarinaluciana Start: 02-15-2012 take 1 tablet by chang th twice daily PAXIL 20 MG TABS One tablet by mouth twice daily PAROXETINE HCL [id number] Rory Mckay MD Start: 02-15-2012 take 1 tablet by chang th twice daily PAXIL 20 MG TABS One tablet by mouth twice daily PAROXETINE HCL [id number] Rory Mckay MD Start: 03-10-2009 PAXIL 10 MG TA BS twice daily PAROXETINE HCL [id number] Flower Melendez Start: 03-10-2009 PAXIL 10 MG TA BS twice daily PAROXETINE HCL [id number] Flower Melendez Comment on above: Take 0.5 tablets by mouth once daily. Take 1 tablet by chang th once daily. microencapsulated potassium chloride 20 meq extended release oral tablet (20 sources) Start: End: take 1 tablet by mouth once daily potassium chloride ER (KLOR-CON) 20 mEq tablet Take 1 tablet by mouth once daily. 90 tablet 3 05/30/2024 Active Start: 01-27-2016 take 1 tablet by chang th once daily KLOR-CON 20 MEQ PACK One tablet by mouth daily POTASSIUM CHLORIDE [id number] Tia Hampton PA-C Start: 01-27-2016 take 1 tablet by chang th once daily KLOR-CON 20 MEQ PACK One tablet by mouth daily POTASSIUM CHLORIDE [id number] Tia Hampton PA-C Start: 10-23-2013 End: 11-21-2013 KLOR-CON 10 CR-TABS 2 tablet s by mouth for 14 days, then 1 tablet by mouth daily for 14 days, then stop (take while on Lasix) POTASSIUM CHLORIDE CR-TABS [id number] Sanna Elam RN Start: 10-23-2013 End: 11-21-2013 KLOR-CON 10 CR-TABS 2 tablet s by mouth for 14 days, then 1 tablet by mouth daily for 14 days, then stop (take while on Lasix) POTASSIUM CHLORIDE CR-TABS [id number] Tia Hampton PA-C Start: 10-23-2013 KLOR-CON 10 CR -TABS 2 tablets by mouth for 14 days, then 1 tablet by mouth daily for 14 days, then stop (take while on Lasix) POTASSIUM CHLORIDE CR-TABS [id number] Sanna Elam RN Start: 09-29-2013 KLOR-CON M20 2 0 MEQ CR-TABS Three tablets by mouth twice a day POTASSIUM CHLORIDE DULCE CR [id number] Chani Suárez RN Start: 09-29-2013 take 3 tablets by mo [facility] twice daily, then take 20 tablets by mouth KLOR-CON M20 20 MEQ CR-TABS Three tablets by mouth twice a day POTASSIUM CHLORIDE DULCE CR [id number] Chani Suárez RN Start: 09-23-2013 KLOR-CON M20 2 0 MEQ CR-TABS 3 tablets in AM and 2 evening POTASSIUM CHLORIDE DULCE CR [id number] Amara Elizabeth RN Start: 09-23-2013 KLOR-CON M20 2 0 MEQ CR-TABS 3 tablets in AM and 2 evening POTASSIUM CHLORIDE DULCE CR [id number] Amara Elizabeth RN Start: 09-18-2013 take 1 tablet by chang three times daily KLOR-CON M20 20 MEQ CR-TABS One tablet by mouth three times daily POTASSIUM CHLORIDE DULCE CR [id number] Tia Hampton PA-C Start: 09-18-2013 take 1 tablet by chang th three times daily KLOR-CON M20 20 MEQ CR-TABS One tablet by mouth three times daily POTASSIUM CHLORIDE DULCE CR [id number] Tia Hampton PA-C Start: 08-19-2013 take 1 tablet by chang th once daily KLOR-CON M20 20 MEQ CR-TABS One tablet by mouth daily POTASSIUM CHLORIDE DULCE CR [id number] Sanna Elam RN Start: 08-19-2013 take 1 tablet by chang th once daily KLOR-CON M20 20 MEQ CR-TABS One tablet by mouth daily POTASSIUM CHLORIDE DULCE CR [id number] Sanna Elam RN Comment on above: Take 1 tablet by chang th once daily. pravastatin sodium 80 mg oral tablet (20 sources) HMG-CoA Reductase Inhibitor Start: End: take 1 tablet by mouth once daily pravastatin (PRAVACHOL) 80 mg tablet TAKE 1 TABLET BY MOUTH ONCE DAILY 90 tablet 3 08/07/2017 Active Comment on above: TAKE 1 TABLET BY CHANG TH ONCE DAILY rivastigmine 1.5 mg oral capsule (20 sources) Start: 5 End: take 1 capsule by mouth twice daily rivastigmine tartrate (EXELON) 1.5 mg capsule Indications: Lewy body dementia with psychotic disturbance, unspecified dementia severity (HCC) Take 1 capsule by mouth two times a day. 60 capsule 5 10/31/2024 04/29/2025 Active Start: 10-13-2024 End: 04-13-2025 apply 1 dose transdermal route once daily rivastigmine (EXELON) 4.6 mg/24 hour patch Indications: Lewy body dementia with psychotic disturbance, unspecified dementia severity (HCC) Apply 1 Patch as directed once daily. 30 Patch 5 10/15/2024 03/19/2025 Discontinued Start: 05-05-2022 apply 1 dose transde rmal route once daily rivastigmine (EXELON) 4.6 mg/24 hour patch Apply 1 Patch as directed once daily. 30 Patch 2 05/05/2022 Active Comment on above: Apply 1 Patch as dir ected once daily. warfarin sodium 1 mg oral tablet (20 sources) Vitamin K Antagonist Start: 04-02-2025 warfarin (COUMADIN) 1 mg tablet Indications: Aortic valve disorder take up to 2 tablets daily as directed pending lab results 60 tablet 5 04/02/2025 Active Start: 01-16-2025 warfarin (COUM LISA) 3 mg tablet 3 mg on Sunday, , & Sunday, 2 mg all other days or as directed 90 tablet 3 01/16/2025 Active Start: 11-12-2024 take 2 tablets by mo uth three times weekly, then take 1 tablet by mouth once daily Warfarin 1 mg tablet Active 1 mg PO daily November 12, 2024 12:00am 2 mg 3 times per week, 1 mg rest of days Start: 10-14-2024 End: 04-01-2025 warfarin (COUMADIN) 1 mg tab let take 1 tablet daily or as directed pending lab results 30 tablet 5 10/14/2024 04/01/2025 Discontinued Start: 08-06-2023 End: 11-12-2024 take 1 tablet by mouth once as needed Warfarin 3 mg tablet Active 3 mg PO ONCE as needed for blood thinner November 12, 2024 11:54am Start: 06-11-2023 End: 11-12-2024 take 2 tablets by mouth once as needed Warfarin 2.5 mg tablet Active 5 mg PO ONCE as needed for Check with primary doctor November 12, 2024 11:54am Start: 06-11-2023 End: 08-06-2023 Warfarin 3 mg tablet Discont inued 3 mg PO .MONWEN June 11, 2023 1:00am August 06, 2023 2:31pm Start: 12-01-2021 End: 01-16-2025 warfarin (COUMADIN) 3 mg tab let 2.5 mg MW and 4.5 mg all other days or as directed 90 tablet 3 10/19/2023 01/16/2025 Discontinued Start: 11-29-2021 End: 10-23-2022 Warfarin 3 mg tablet Discont inued 4.5 mg PO SUMOTUTHSA November 29, 2021 1:15pm October 23, 2022 3:56pm BLOOD THINNER Managed by PCP Start: 11-29-2021 End: 10-23-2022 Warfarin Discontinued 4.5 MG PO SUMOTUTHSA November 29, 2021 1:15pm October 23, 2022 3:56pm Managed by PCP Start: 05-19-2021 End: 12-01-2021 warfarin (COUMADIN) 2.5 mg t ablet Indications: History of heart valve replacement 3 mg Tu/ Sat, 4.5 mg all other days or as directed 90 tablet 3 05/19/2021 12/01/2021 Discontinued Start: 09-30-2020 End: 10-23-2022 Warfarin 2.5 mg tablet Disco ntinued 4.5 mg PO WEFR November 29, 2021 1:14pm October 23, 2022 3:56pm blood thinner Managed by PCP Start: 09-30-2020 End: 10-23-2022 Warfarin Discontinued 4.5 MG PO WEFR November 29, 2021 1:14pm October 23, 2022 3:56pm Managed by PCP Start: 05-20-2020 End: 02-21-2021 warfarin (COUMADIN) 2.5 mg t ablet Indications: History of heart valve replacement 3 mg Mon/Fri and 5 mg all other days or as directed 90 tablet 3 05/20/2020 02/21/2021 Discontinued Start: 12-02-2019 End: 12-01-2021 Warfarin 3 MG tablet Discont inued 3 mg PO SUMOTUTHSA September 30, 2020 3:15am November 29, 2021 1:16pm BLOOD THINNER Start: 12-02-2019 End: 10-23-2022 Start: 12-03-2017 End: 03-15-2025 warfarin (COUMADIN) 2.5 mg t ablet Indications: History of heart valve replacement 2.5 mg daily or as directed 90 tablet 3 03/16/2025 Active Start: 12-03-2017 End: 09-30-2020 Warfarin Discontinued 5 MG P O SUMOWEFR 0 July 09, 2020 3:38pm September 30, 2020 3:15am Hold until follow-up INR on sunday by PCP Start: 10-30-2017 End: 02-21-2021 Warfarin 2.5 MG tablet Disco ntinued 5 mg PO SUMOWEFR 0 0 July 09, 2020 3:38pm September 30, 2020 3:15am blood thinner Hold until follow-up INR on sunday by PCP Start: 01-14-2015 End: 11-15-2015 Warfarin (Jantoven) 5 MG tab let Discontinued 5 mg PO SUMOTUWETHSA 28 0 January 15, 2015 12:11pm November 15, 2015 2:12am Start: 01-14-2015 End: 01-15-2015 Warfarin (Coumadin (Pbkc)) 7 .5 MG tablet Discontinued 7.5 mg PO FR January 14, 2015 12:00am January 15, 2015 12:11pm Start: 01-14-2015 End: 01-15-2015 Start: 10-23-2013 take 2 tablets by mo [facility] once daily COUMADIN 2.5 MG TABS 2 tablets (5 mg) by mouth daily: managed by Dr. Kim from [facility] for now WARFARIN SODIUM [id number] Ag Whitfield Comment on above: 2.5 mg Mon/ Fri, 4.5 mg all other days or as directed 3 mg Tues/ Sat, 4.5 mg all other days or as directed 2.5 mg MWFSat and 4. 5 mg all other days or as directed 2.5 mg Mon/Wed/ Fri, 4.5 mg all other days or as directed 2.5 mg MWF and 4.5 m g all other days or as directed 2.5 mg Mon/Wed, 4.5 mg all other days or as directed 2.5 mg MW and 4.5 mg all other days or as directed 2.5 mg daily or as d irected Completed/Discontinued Medications Medication Drug Class(es) Dates Sig (Normalized) Sig (Original) amoxicillin 875 mg / clavulanate 125 mg oral tablet (20 sources) Penicillin-class Antibacterial Start: 04-28-2021 End: 05-11-2022 Amoxicillin-Pot Clavulanate (Augmentin) 875-125 mg tablet Discontinued 1 {tbl} PO TWICE A DAY April 28, 2021 12:00am May 19, 2021 1:37pm Start: 04-28-2021 End: 05-19-2021 Comment on above: Take 1 tablet by [facility] twice daily. Amphotericin B (12 sources) Polyene Antifungal, Lipid-based Polyene Antifungal Start: 08-26-2012 AMPHOTERICIN B SOLR via nebulizer treatment as directed AMPHOTERICIN B SOLR [id number] Rory Mckay MD Start: 08-26-2012 End: 11-28-2012 AMPHOTERICIN B SOLR via [facility] treatment as directed AMPHOTERICIN B SOLR [id number] Tia Hampton PA-C azelastine hydrochloride 0.137 mg/actuat metered dose nasal spray (20 sources) Histamine-1 Receptor Antagonist Start: 10-19-2020 End: 10-22-2020 Azelastine 137 mcg (0.1 %) aerosol,spray Discontinued 1 NMA NASAL TWICE A DAY 26 10October 19, 2020 11:31am October 22, 2020 12:34pm Cough ALLERGIES Start: 10-19-2020 End: 10-22-2020 Azelastine Discontinued 1 SP RAY NASAL TWICE A DAY October 19, 2020 11:31am October 22, 2020 12:34pm Start: 10-19-2020 End: 10-22-2020 Start: 06-23-2019 End: 08-13-2019 Azelastine 137 mcg (0.1 %) aerosol,spray Discontinued 1 NMA INTRANASAL TWICE A DAY 26 10June 23, 2019 1:00am August 13, 2019 12:30pm administer into each nostril Start: 06-23-2019 End: 08-13-2019 take 1 spray(s) nasal route twice daily Azelastine Discontinued 1 SPRAY INTRANASAL TWICE A DAY June 23, 2019 1:00am August 13, 2019 12:30pm administer into each nostril Start: 06-23-2019 End: 08-13-2019 Start: 05-03-2017 End: 09-28-2017 Azelastine 1 SPRAY aerosol,s pray Discontinued 1 NMA NASAL TWICE A DAY May 03, 2017 12:00am September 28, 2017 11:59am ALLERGIES Start: 05-03-2017 End: 09-28-2017 Azelastine Discontinued 1 SP RAY NASAL TWICE A DAY May 03, 2017 12:00am September 28, 2017 11:59am Start: 05-03-2017 End: 09-28-2017 Start: 07-15-2014 End: 08-10-2016 AZELASTINE HCL 0.1 % SOLN On e spray twice daily AZELASTINE HCL [id number] Rory Mckay MD End: 10-23-2013 ASTEPRO 0.15 % SOLN AZELASTINE HCL [id number] Sanna Elam RN ASTEPRO 0.15 % S PRERNA AZELASTINE HCL [id number] Lenore White MD End: 10-23-2013 ASTEPRO 0.15 % SOLN AZELASTINE HCL [id number] Sanna Elam RN azithromycin 250 mg oral tablet (14 sources) Macrolide Antimicrobial Start: 03-18-2018 End: 04-29-2018 take 1 tablet by mouth once daily Azithromycin 250 mg tablet Discontinued 250 mg PO daily 6 0 March 18, 2018 12:00am April 29, 2018 10:31am baclofen 10 mg oral tablet (20 sources) gamma-Aminobutyric Acid-ergic Agonist Start: 03-08-2023 End: 08-06-2023 take 1 tablet by mouth every eight hours as needed for muscle spasms Baclofen 10 mg tablet Discontinued 10 mg PO Q8H as needed for muscle spasm March 08, 2023 12:00am August 06, 2023 2:26pm Start: 09-29-2022 End: 06-27-2023 take 1 tablet by mouth every eight hours as needed baclofen (LIORESAL) 10 mg tablet Take 1 tablet by mouth three times daily as needed (muscle spasms). 30 tablet 0 09/29/2022 06/27/2023 Discontinued Comment on above: Take 1 tablet by chang th three times daily as needed (muscle spasms). Budesonide-Formoterol (20 sources) Corticosteroid, beta2-Adrenergic Agonist Start: 04-04-2022 End: 07-05-2022 Budesonide-Formoterol 160-4.5 mcg/actuation HFA aerosol inhaler Discontinued 2 NMA INHALATION TWICE A DAY 10.2 6 April 04, 2022 1:02pm July 05, 2022 2:38pm Start: 04-04-2022 End: 07-05-2022 Start: 04-04-2022 End: 07-05-2022 Budesonide-Formoterol Discon tinued 2 INH INHALATION TWICE A DAY 10.2 April 04, 2022 1:02pm July 05, 2022 2:38pm Start: 04-04-2022 End: 07-05-2022 Budesonide-Formoterol Discon tinued 2 INH INHALATION TWICE A DAY 10.2 April 04, 2022 12:02pm July 05, 2022 1:38pm Start: 04-04-2022 Budesonide-For moterol Active 2 INH INHALATION TWICE A DAY 10.2 April 04, 2022 12:02pm Start: 09-07-2021 End: 04-04-2022 Budesonide-Formoterol 160-4. 5 mcg/actuation HFA aerosol inhaler Discontinued 2 NMA INHALATION TWICE A DAY 10.2 September 07, 2021 1:09pm April 04, 2022 1:02pm Start: 09-07-2021 End: 04-04-2022 Start: 09-07-2021 End: 04-04-2022 Budesonide-Formoterol Discon tinued 2 INH INHALATION TWICE A DAY 10.2 September 07, 2021 1:09pm April 04, 2022 1:02pm Start: 09-07-2021 End: 04-04-2022 Budesonide-Formoterol Discon tinued 2 INH INHALATION TWICE A DAY 10.2 September 07, 2021 12:09pm April 04, 2022 12:02pm Start: 09-07-2021 Budesonide-For moterol Active 2 INH INHALATION TWICE A DAY 10.2 September 07, 2021 1:09pm Start: 03-09-2021 End: 09-07-2021 Budesonide-Formoterol 160-4. 5 mcg/actuation HFA aerosol inhaler Discontinued 2 NMA INHALATION TWICE A DAY 10.2 March 09, 2021 10:05am September 07, 2021 1:09pm Start: 03-09-2021 End: 09-07-2021 Start: 03-09-2021 End: 09-07-2021 Budesonide-Formoterol Discon tinued 2 INH INHALATION TWICE A DAY 10.2 March 09, 2021 9:05am September 07, 2021 12:09pm Start: 03-09-2021 End: 09-07-2021 Budesonide-Formoterol Discon tinued 2 INH INHALATION TWICE A DAY 10.2 March 09, 2021 10:05am September 07, 2021 1:09pm Start: 08-17-2020 End: 03-09-2021 Budesonide-Formoterol 160-4. 5 mcg/actuation HFA aerosol inhaler Discontinued 2 NMA INHALATION TWICE A DAY 10.2 6 August 17, 2020 3:45pm March 09, 2021 10:05am Start: 08-17-2020 End: 03-09-2021 Start: 08-17-2020 End: 03-09-2021 Budesonide-Formoterol Discon tinued 2 INH INHALATION TWICE A DAY 10.2 August 17, 2020 2:45pm March 09, 2021 9:05am Start: 08-17-2020 End: 03-09-2021 Budesonide-Formoterol Discon tinued 2 INH INHALATION TWICE A DAY 10.2 August 17, 2020 3:45pm March 09, 2021 10:05am Start: 01-26-2020 End: 08-17-2020 Budesonide-Formoterol Discon tinued 2 INH INHALATION TWICE A DAY 10.2 January 26, 2020 11:17am August 17, 2020 3:45pm Start: 12-02-2019 End: 08-17-2020 Budesonide-Formoterol 160-4. 5 mcg/actuation HFA aerosol inhaler Discontinued 2 NMA INHALATION TWICE A DAY 10.2 6 January 26, 2020 11:17am August 17, 2020 3:45pm Start: 12-02-2019 End: 01-26-2020 take 1 puff(s) by inhalation twice daily Budesonide-Formoterol Discontinued 2 PUFF INHALATION TWICE A DAY December 02, 2019 12:00am January 26, 2020 11:17am Start: 12-02-2019 End: 08-17-2020 Start: 09-16-2018 End: 01-23-2019 Budesonide-Formoterol (Symbi shaina) 160-4.5 mcg/actuation HFA aerosol inhaler Discontinued 2 NMA INHALATION TWICE A DAY 1 3 September 16, 2018 1:00am January 23, 2019 8:46am administer with spacer, rinse mouth after each use Start: 09-16-2018 End: 01-23-2019 take 1 puff(s) by mouth twice daily Budesonide-Formoterol (Symbicort) 160-4.5 mcg/actuation HFA aerosol inhaler Discontinued 2 PUFF INHALATION TWICE A DAY September 16, 2018 1:00am January 23, 2019 8:46am administer with spacer, rinse mouth after each use Start: 09-16-2018 End: 01-23-2019 Start: 01-12-2015 SYMBICORT 160- 4.5 MCG/ACT AERO as directed BUDESONIDE-FORMOTEROL FUMARATE [id number] Harumi Y DeFinis Start: 01-12-2015 SYMBICORT 160- 4.5 MCG/ACT AERO as directed BUDESONIDE-FORMOTEROL FUMARATE [id number] Ag Y DeFinis Start: 01-12-2015 SYMBICORT 160- 4.5 MCG/ACT AERO as directed BUDESONIDE-FORMOTEROL FUMARATE [id number] Tia Hampton PA-C End: 06-27-2023 take 2 puff(s) by inhalation twice daily budesonide-formoterol (SYMBICORT) 160-4.5 mcg/actuation inhaler Inhale 2 Puffs as instructed twice daily. 06/27/2023 Discontinued End: 06-27-2023 take 2 puff(s) by inhalation twice daily budesonide-formoterol (SYMBICORT) 160-4.5 mcg/actuation inhaler Inhale 2 Puffs as instructed twice daily. 0 06/27/2023 Discontinued take 2 puff(s) by in halation twice daily budesonide-formoterol (SYMBICORT) 160-4.5 mcg/actuation inhaler Inhale 2 Puffs as instructed twice daily. 0 Active Comment on above: Inhale 2 Puffs as in structed twice daily. Bupivacaine (20 sources) Amide Local Anesthetic Start: 08-27-2020 End: 12-28-2022 bupivacaine 7.5 mg injection (SENSORCAINE) Start: 08-27-2020 bupivacaine 7. 5 mg injection (SENSORCAINE) calcium (4 sources) Phosphate Binder, Calcium Start: 10-05-2011 take 1 tablet by mouth once daily CALCIUM 500 MG TABS One tablet by mouth daily CALCIUM [id number] Rory Mckay MD Start: 10-05-2011 End: 07-10-2012 take 1 tablet by mouth once daily CALCIUM 500 MG TABS One tablet by mouth daily CALCIUM [id number] Lenore White MD calcium carbonate 1250 mg oral tablet (14 sources) Start: 10-05-2011 End: 07-10-2012 take 1 tablet by mouth once daily CALCIUM 500 MG TABS One tablet by mouth daily CALCIUM [id number] Lenore White MD Start: 03-10-2009 [facility] CALCIUM TA BS CALCIUM CARBONATE TABS [id number] Flower Melendez Calcium Carbonate / Vitamin D (12 sources) Start: 07-14-2015 take 1 tablet by mouth once daily CALCIUM + D 600-200 MG-UNIT TABS One tablet by mouth daily CALCIUM CARBONATE-VITAMIN D Rory Mckay MD Start: 07-14-2015 End: 01-27-2016 take 1 tablet by mouth once daily CALCIUM + D 600-200 MG-UNIT TABS One tablet by mouth daily CALCIUM CARBONATE-VITAMIN D Tia Hampton PA-C cefdinir 300 mg oral capsule (20 sources) Cephalosporin Antibacterial Start: 06-18-2024 End: 07-08-2024 take 1 capsule by mouth twice daily Cefdinir 300 mg capsule Discontinued 300 mg PO TWICE A DAY 6 3 0 June 18, 2024 1:00am July 08, 2024 3:34pm Start: 11-07-2018 End: 11-12-2018 take 1 capsule by mouth every twelve hours Cefdinir 300 mg capsule Discontinued 300 mg PO Q12H 10 5 0 November 07, 2018 12:00am November 11, 2018 12:00am November 12, 2018 12:09am Start: 09-05-2017 End: 09-28-2017 take 1 capsule by mouth every twelve hours Cefdinir 300 MG capsule Discontinued 300 mg PO Q12H 10 September 05, 2017 1:00am September 28, 2017 11:58am cefepime 1000 mg injection (6 sources) Cephalosporin Antibacterial Start: 07-18-2012 End: 08-08-2012 take 1 g intravenous route every twelve hours CEFEPIME HCL 1 GM SOLR every 12 hrs IV thru picc line CEFEPIME HCL [id number] Lenore White MD cetirizine hydrochloride 10 mg oral tablet (12 sources) Histamine-1 Receptor Antagonist Start: 03-10-2009 End: 02-15-2012 take 1 tablet by mouth once daily ZYRTEC ALLERGY 10 MG TABS One tablet by mouth daily CETIRIZINE HCL [id number] Rory Mckay MD cholecalciferol 1.25 mg oral capsule (14 sources) Vitamin D Start: 06-16-2019 End: 06-11-2023 Cholecalciferol (Vitamin D3) 50,000 unit capsule Discontinued 18743 U PO FR June 16, 2019 1:00am June 11, 2023 2:29pm SUPPLEMENT Start: 06-16-2019 ciprofloxacin 250 mg oral tablet (20 sources) Quinolone Antimicrobial Start: 05-27-2018 End: 06-24-2018 take 1 tablet by mouth twice daily Ciprofloxacin Hcl (Cipro) 250 mg tablet Discontinued 250 mg PO TWICE A DAY 14 May 27, 2018 12:00am June 24, 2018 12:24pm Start: 02-25-2018 End: 03-18-2018 take 1 tablet by mouth twice daily Ciprofloxacin Hcl 250 mg tablet Discontinued 250 mg PO TWICE A DAY 10 February 25, 2018 12:00am March 18, 2018 9:50am Start: 07-12-2012 End: 07-19-2012 take 1 tablet by mouth twice daily CIPRO 500 MG TABS One tablet by mouth twice daily CIPROFLOXACIN HCL [id number] Lenore White MD cyclobenzaprine hydrochloride 10 mg oral tablet (20 sources) Muscle Relaxant Start: 05-03-2017 End: 05-06-2020 take 1 tablet by mouth twice daily as needed for muscle spasms Cyclobenzaprine 10 MG tablet Discontinued 10 mg PO TWICE DAILY NEEDED as needed for Spasms May 03, 2017 12:00am May 06, 2020 1:04pm Start: 08-10-2016 FLEXERIL 10 MG TABS as needed CYCLOBENZAPRINE HCL Rory Mckay MD Start: 08-10-2016 FLEXERIL 10 MG TABS as needed CYCLOBENZAPRINE HCL Rory Mckay MD diclofenac sodium 0.01 mg/mg topical gel (20 sources) Nonsteroidal Anti-inflammatory Drug Start: 09-14-2022 End: 2022 apply 4 g topically four times daily diclofenac (VOLTAREN) 1 % topical gel Indications: Compression fracture of thoracic vertebra, unspecified thoracic vertebral level, sequela Apply 4 g to affected area four times daily. 480 g 2 09/14/2022 2022 Comment on above: Apply 4 g to affecte d area four times daily. DOCOSAHEXAENOIC ACID-EPA CAPS (4 sources) End: 02-15-2012 take 1 tablet by mouth once daily OMEGA-3 CAPS One tablet by mouth daily DOCOSAHEXAENOIC ACID-EPA CAPS [id number] Rory Mckay MD take 1 tablet by mouth once mahendra y OMEGA-3 CAPS One tablet by mouth daily DOCOSAHEXAENOIC ACID-EPA CAPS [id number] Flower Melendez DOCOSAHEXAENOIC ACID-EPA CAPS (8 sources) End: 02-15-2012 take 1 tablet by mouth once daily OMEGA-3 CAPS One tablet by mouth daily DOCOSAHEXAENOIC ACID-EPA CAPS [id number] Rory Mckay MD take 1 tablet by mouth once mahendra y OMEGA-3 CAPS One tablet by mouth daily DOCOSAHEXAENOIC ACID-EPA CAPS [id number] Flower Melendez docusate sodium 100 mg oral tablet (12 sources) Start: 10-23-2013 End: 11-21-2013 take 1 tablet by mouth twice daily as needed DOCUSATE SODIUM 100 MG TABS One tablet by mouth twice daily as needed DOCUSATE SODIUM [id number] Tia Hampton PA-C donepezil hydrochloride 5 mg oral tablet (20 sources) Start: 12-03-2023 End: 11-12-2024 take 1 tablet by mouth once daily Donepezil 5 mg tablet Discontinued 5 mg PO daily January 24, 2024 12:00am November 12, 2024 11:52am doxycycline hyclate 100 mg oral capsule (20 sources) Tetracycline -class Drug Start: 03-25-2024 End: 06-14-2024 take 1 capsule by mouth twice daily Doxycycline Hyclate 100 mg capsule Discontinued 100 mg PO TWICE A DAY 14 7 0 March 25, 2024 12:00am June 14, 2024 6:52pm Start: 08-07-2022 End: 11-03-2022 take 1 capsule by mouth twice daily Doxycycline Monohydrate 100 mg capsule Discontinued 100 mg PO TWICE A DAY 7 3 0 October 23, 2022 4:08pm November 03, 2022 12:45pm Start: 05-24-2022 End: 07-05-2022 take 1 capsule by mouth twice daily Doxycycline Monohydrate 100 mg capsule Discontinued 100 mg PO TWICE A DAY 14 0 May 24, 2022 12:00am July 05, 2022 2:24pm Start: 04-19-2022 End: 04-29-2022 take 1 tablet by mouth twice daily doxycycline (VIBRA-TABS) 100 mg tablet Indications: Skin infection Take 1 tablet by mouth twice daily for 10 days. 20 tablet 0 04/19/2022 04/29/2022 Active Start: 02-20-2022 End: 03-02-2022 take 1 tablet by mouth twice daily doxycycline monohydrate 100 mg tablet Indications: Chronic obstructive pulmonary disease, unspecified COPD type (HCC) Take 1 tablet by mouth twice daily for 10 days. 20 tablet 0 02/20/2022 03/02/2022 Active Start: 05-21-2021 End: 08-19-2021 take 1 capsule by mouth twice daily Doxycycline Monohydrate 100 MG capsule Discontinued 100 mg PO TWICE A DAY 19 0 August 08, 2021 1:00am August 19, 2021 2:09pm Comment on above: Take 1 tablet by chang th twice daily for 10 days. ergocalciferol 1.25 mg oral capsule (20 sources) Provitamin D2 Compound Start: 07-11-2023 End: 01-12-2025 Ergocalciferol (Vitamin D2) 1,250 mcg (50,000 unit) capsule Discontinued 1250 ug PO .every other week January 24, 2024 2:15pm November 12, 2024 11:52am Start: 03-08-2023 End: 01-24-2024 Ergocalciferol (Vitamin D2) 1,250 mcg (50,000 unit) capsule Discontinued 1250 ug PO EVERY WEEK March 08, 2023 12:00am January 24, 2024 2:16pm Start: 09-29-2022 take 1 capsule by mo uth every other week ergocalciferol 50,000 unit capsule (VITAMIN D2, DRISDOL) Indications: Vitamin D deficiency Take 1 capsule by mouth every other week. 0 09/29/2022 Active Start: 06-21-2021 End: 09-29-2022 take 1 capsule by mouth every week ergocalciferol 50,000 unit capsule (VITAMIN D2, DRISDOL) Indications: Vitamin D deficiency Take 1 capsule by mouth one time a week. 12 capsule 3 06/21/2021 12/07/2021 Discontinued Start: 05-29-2019 End: 06-06-2021 take 1 capsule by mouth every week ergocalciferol 50,000 unit capsule (VITAMIN D2, DRISDOL) Indications: Vitamin D deficiency Take 1 capsule by mouth one time a week. 12 capsule 3 07/16/2020 06/06/2021 Discontinued Start: 12-19-2010 take 1 tablet by chang th two times weekly VITAMIN D (ERGOCALCIFEROL) 21512 UNIT CAPS 1 tablet by mouth twice a week ERGOCALCIFEROL [id number] Solange Harley Comment on above: Take 1 capsule by mo uth one time a week. Take 1 capsule by mo uth every other week. famotidine 20 mg oral tablet (20 sources) Histamine-2 Receptor Antagonist Start: 021 End: 023 take 1 tablet by mouth once daily as needed for gastroesophageal reflux disease Famotidine 20 mg tablet Discontinued 20 mg PO DAILY as needed for gerd November 29, 2021 1:11pm June 11, 2023 2:30pm Comment on above: Take 1 tablet by chang th at bedtime as needed. Take 1 tablet by chang th daily at bedtime. Fish Oils (12 sources) Start: 012 End: 012 take 2 tablets by mouth twice daily FISH OIL CAPS Two tablets by mouth twice daily OMEGA-3 FATTY ACIDS CAPS [id number] Lenore White MD Start: 02-15-2012 take 2 tablets by mo uth twice daily FISH OIL CAPS Two tablets by mouth twice daily OMEGA-3 FATTY ACIDS CAPS [id number] Rory Mckay MD FLUoxetine 20 mg oral capsule (12 sources) Serotonin Reuptake Inhibitor Start: 02-15-2012 End: 07-15-2014 take 1 tablet by mouth once daily PROZAC 20 MG CAPS One tablet by mouth daily FLUOXETINE HCL [id number] Rory Mckay MD Start: 02-15-2012 End: 07-15-2014 take 1 tablet by mouth once daily PROZAC 20 MG CAPS One tablet by mouth daily FLUOXETINE HCL [id number] Rory Mckay MD fluticasone propionate 0.05 mg/actuat metered dose nasal spray (14 sources) Corticosteroid Start: 09-28-2017 End: 08-13-2019 Fluticasone Propionate (Flonase Allergy Relief) 50 mcg/actuation spray,suspension Discontinued 50 ug INTRANASAL TWICE A DAY September 28, 2017 1:00am August 13, 2019 12:29pm allergy Start: 09-28-2017 End: 08-13-2019 60 actuat fluticasone propionate 0.115 mg/actuat / salmeterol 0.021 mg/actuat metered dose inhaler (18 sources) Corticosteroid, beta2-Adrenergic Agonist Start: 02-15-2012 ADVAIR HFA 115-21 MCG/ACT AERO 2 puffs twice a day FLUTICASONE-SALMETEROL [id number] Rory Mckay MD Start: 02-15-2012 ADVAIR HFA 115 -21 MCG/ACT AERO 2 puffs twice a day FLUTICASONE-SALMETEROL [id number] Rory Mckay MD Start: 03-10-2009 ADVAIR DISKUS 250-50 MCG/DOSE AEPB puff daily FLUTICASONE-SALMETEROL [id number] Flower Melendez Start: 03-10-2009 ADVAIR DISKUS 250-50 MCG/DOSE AEPB puff daily FLUTICASONE-SALMETEROL [id number] Flowerzay Melendez ADVAIR HFA 230-2 1 MCG/ACT AERO 2 puffs twice daily FLUTICASONE-SALMETEROL [id number] Lenore White MD ADVAIR HFA 230-2 1 MCG/ACT AERO 2 puffs twice daily FLUTICASONE-SALMETEROL [id number] Lenore White MD 30 actuat fluticasone furoate 0.2 mg/actuat / vilanterol 0.025 mg/actuat dry powder inhaler (20 sources) Corticosteroid, beta2-Adrenergic Agonist Start: 08-07-2022 End: 06-27-2023 take 1 puff(s) by mouth once daily BREO ELLIPTA 200-25 mcg/dose inhaler INHALE 1 PUFF BY MOUTH ONCE DAILY 0 08/07/2022 06/27/2023 Discontinued Start: 07-05-2022 End: 06-11-2023 Fluticasone Furoate-Vilanter ol (Breo Ellipta) 200-25 mcg/dose blister with device Discontinued 1 NMA INHALATION DAILY 60 August 07, 2022 11:30am June 11, 2023 2:28pm Start: 07-05-2022 End: 08-07-2022 Fluticasone Furoate-Vilanter ol (Breo Ellipta) 200-25 mcg/dose blister with device Active 1 INH INHALATION DAILY 60 August 07, 2022 11:30am Start: 07-05-2022 End: 08-07-2022 Start: 05-03-2017 End: 12-11-2018 Fluticasone Furoate-Vilanter ol Discontinued 1 EACH IH DAILY May 03, 2017 9:20am December 11, 2018 1:18pm Start: 05-03-2017 End: 12-11-2018 take 1 dose by inhalation once daily Fluticasone Furoate-Vilanterol 1 EACH blister with device Discontinued 1 NMA IH DAILY May 03, 2017 12:00am December 11, 2018 1:18pm BREATHING Start: 05-03-2017 End: 12-11-2018 Start: 05-03-2017 End: 12-11-2018 Fluticasone Furoate-Vilanter ol Discontinued 1 EACH IH DAILY May 02, 2017 11:00pm December 11, 2018 12:18pm Start: 05-03-2017 End: 12-11-2018 Fluticasone Furoate-Vilanter ol Discontinued 1 EACH IH DAILY May 03, 2017 12:00am December 11, 2018 1:18pm Comment on above: INHALE 1 PUFF BY CHANG TH ONCE DAILY gabapentin 100 mg oral capsule (14 sources) Anti-epileptic Agent Start: 03-26-2021 End: 11-29-2021 take 1 capsule by mouth at bedtime Gabapentin 100 mg capsule Discontinued 100 mg PO AT BEDTIME March 26, 2021 12:00am November 29, 2021 1:11pm Start: 03-26-2021 End: 11-29-2021 12 hr guaiFENesin 1200 mg extended release oral tablet (20 sources) Start: 06-18-2024 End: 11-12-2024 take 1 tablet by mouth twice daily, then take 1 tablet by mouth every twelve hours Guaifenesin (Mucus Relief Er) 1,200 mg Tablet Extended Release 12hr Discontinued 1200 mg PO TWICE A DAY 14 7 0 June 18, 2024 1:00am November 12, 2024 11:52am Start: 04-04-2022 End: 03-08-2023 take 1 tablet by mouth every twelve hours Guaifenesin 1,200 mg tablet extended release 12hr Discontinued 1200 mg PO Q12H 60 6 November 08, 2022 10:21am March 08, 2023 4:41pm Start: 12-06-2017 End: 06-24-2018 take 1 tablet by mouth twice daily Guaifenesin 1,200 MG tablet Discontinued 1200 mg PO TWICE A DAY 30 0 December 06, 2017 12:00am June 24, 2018 12:24pm Start: 12-06-2017 End: 06-24-2018 hydroCHLOROthiazide 25 mg oral tablet (20 sources) Thiazide Diuretic Start: 07-14-2015 take 1 tablet by mouth once daily HYDROCHLOROTHIAZIDE 25 MG TABS One tablet by mouth daily HYDROCHLOROTHIAZIDE [id number] Rory Mckay MD Start: 07-14-2015 End: 12-22-2016 take 0.5 tablet by mouth once daily HYDROCHLOROTHIAZIDE 25 MG TABS One-half tablet by mouth daily HYDROCHLOROTHIAZIDE [id number] Rory Mckay MD Start: 11-28-2012 End: 09-29-2013 take 1 tablet by mouth twice daily HYDROCHLOROTHIAZIDE 12.5 MG TABS One tablet by mouth twice daily HYDROCHLOROTHIAZIDE [id number] Rory Mckay MD Start: 11-20-2012 take 1 tablet by chang th once daily HYDROCHLOROTHIAZIDE 12.5 MG TABS One tablet by mouth daily HYDROCHLOROTHIAZIDE [id number] Zakia Gonzalez RN iv contrast (will be provide d with radiology test) (20 sources) Start: 10-04-2022 End: 06-27-2023 iv contrast (will be provide d with radiology test) Indications: Interstitial pulmonary disease (HCC) CT Chest W -Inject, intravenously, once for 1 dose.No IV access, insert saline lock prior to the beginning of sedation, infusion, injection of imaging exam. Discontinue saline lock post exam. If Pt. has a central line or IVAD, may access for administration according to line specific nursing protocol. Once exam is complete flush line and de-access according to line specific nursing protocol in the CT contrast administration guidelines link. 1 Each 0 10/04/2022 06/27/2023 Discontinued Start: 10-04-2022 iv contrast (w ill be provided with radiology test) Indications: Interstitial pulmonary disease (HCC) CT Chest W -Inject, intravenously, once for 1 dose.No IV access, insert saline lock prior to the beginning of sedation, infusion, injection of imaging exam. Discontinue saline lock post exam. If Pt. has a central line or IVAD, may access for administration according to line specific nursing protocol. Once exam is complete flush line and de-access according to line specific nursing protocol in the CT contrast administration guidelines link. 1 Each 0 10/04/2022 Active Comment on above: CT Chest W -Inject, intravenously, once for 1 dose.No IV access, insert saline lock prior to the beginning of sedation, infusion, injection of imaging exam. Discontinue saline lock post exam. If Pt. has a central line or IVAD, may access for administration according to line specific nursing protocol. Once exam is complete flush line and de-access according to line specific nursing protocol in the CT contrast administration guidelines link. levoFLOXacin 500 mg oral tablet (4 sources) Quinolone Antimicrobial Start: 12-27-19 End: 03-08-20 take 1 tablet by mouth once daily Levofloxacin 500 mg tablet Discontinued 500 mg PO DAILY 6 December 26, 2022 12:00am March 08, 2023 4:41pm lidocaine hydrochloride 20 mg/ml mucous membrane topical solution (20 sources) Antiarrhythmic, Amide Local Anesthetic Start: 07-20-20 End: 05-11-20 lidocaine viscous (LIDOCAINE VISCOUS) 2 % solution Indications: Sore throat , Cough Take 15 mL by mouth every 3 hours as needed for pain. 120 mL 1 07/20/2021 05/11/2022 Discontinued Comment on above: Take 15 mL by mouth every 3 hours as needed for pain. loratadine 10 mg oral tablet (20 sources) Start: 06-11-20 End: 06-02-20 take 1 tablet by mouth once daily Loratadine 10 mg tablet Discontinued 10 mg PO DAILY 90 3 June 02, 2024 8:51am June 02, 2024 8:52am Comment on above: Take 10 mg by mouth once daily. LORazepam 1 mg oral tablet (20 sources) Benzodiazepine Start: 03-22-20 End: 05-06-20 take 0.5 tablet by mouth twice daily LORazepam (ATIVAN) 1 mg tablet Indications: Anxiety Take 0.5 tablets by mouth twice daily for 90 days. 90 tablet 0 08/21/2022 11/17/2022 Discontinued Start: 03-29-2020 End: 08-12-2020 take 0.5 tablet by mouth twice daily LORazepam (ATIVAN) 1 mg tablet Indications: Anxiety Take 0.5 tablets by mouth twice daily. 60 tablet 3 03/29/2020 08/12/2020 Discontinued Start: 08-19-2013 End: 06-11-2023 take 1 tablet by mouth twice daily as needed for anxiety Lorazepam 0.5 MG tablet Discontinued 0.5 mg PO TWICE A DAY as needed for ANXIETY September 04, 2017 10:36am June 11, 2023 2:27pm Start: 12-19-2010 LORAZEPAM 1 MG TABS needed LORAZEPAM [id number] Rory Mckay MD Comment on above: Take 0.5 tablets by mouth twice daily for 90 days. magnesium oxide 400 mg oral tablet (12 sources) Start: 2014 End: 2015 take 1 tablet by mouth once daily MAGNESIUM 400 MG CAPS One tablet by mouth daily MAGNESIUM OXIDE [id number] Tia Hampton PA-C METHYLPREDNISOLONE (12 sources) Corticosteroid Start: 2012 End: 2012 MEDROL 4 MG TBPK take as directed METHYLPREDNISOLONE [id number] Lenore White MD Start: 06-11-2013 MEDROL 4 MG TB PK take as directed METHYLPREDNISOLONE [id number] Lenore White MD Start: 06-11-2013 End: 06-18-2013 MEDROL 4 MG TBPK take as dir ected METHYLPREDNISOLONE [id number] Rory Mckay MD MULTIPLE VITAMIN (12 sources) Start: 10-23-2013 take 1 tablet by mouth once daily MULTIVITAMINS TABS One tablet by mouth daily MULTIPLE VITAMIN Sanna Elam RN Start: 10-23-2013 End: 07-15-2014 take 1 tablet by mouth once daily MULTIVITAMINS TABS One tablet by mouth daily MULTIPLE VITAMIN Rory Mckay MD nadolol 20 mg oral tablet (12 sources) beta-Adrenergic Milka Start: 03-10-2009 CORGAR D 20 MG TABS One half tablet by mouth daily NADOLOL [id number] Tia Hampton PA-C nystatin 194772 unt/ml oral suspension (19 sources) Polyene Antifungal Start: 11-08-2022 End: 03-08-2023 Nystatin 100,000 unit/mL suspension Discontinued 5 mL MUCOUS MEM THREE TIMES A DAY 250 1 November 08, 2022 12:00am March 08, 2023 4:42pm swish and swallow 5 cc three times per day for 10 days Start: 11-08-2022 End: 03-08-2023 Nystatin Discontinued 5 ML M UCOUS MEM THREE TIMES A DAY November 08, 2022 12:00am March 08, 2023 4:42pm swish and swallow 5 cc three times per day for 10 days Start: 11-08-2022 Start: 03-18-2018 End: 05-23-2018 Nystatin 100,000 unit/mL pili pension Discontinued 5 mL MUCOUS MEM THREE TIMES A DAY 250 1 March 18, 2018 12:00am May 23, 2018 9:25am swish and swallow 5 cc three times per day for 10 days Start: 03-18-2018 End: 05-23-2018 Nystatin Discontinued 5 ML M UCOUS MEM THREE TIMES A DAY 250 March 18, 2018 12:00am May 23, 2018 9:25am swish and swallow 5 cc three times per day for 10 days Start: 03-18-2018 End: 05-23-2018 omeprazole 20 mg delayed release oral capsule (20 sources) Proton Pump Inhibitor Start: 10-05-2011 End: 02-15-2012 take 1 tablet by mouth once daily PRILOSEC 20 MG CPDR One tablet by mouth daily OMEPRAZOLE [id number] Rory Mckay MD Start: 10-05-2011 End: 02-15-2012 take 1 tablet by mouth once daily PRILOSEC 20 MG CPDR One tablet by mouth daily OMEPRAZOLE [id number] Rory Mckay MD Start: 12-19-2010 End: 06-04-2013 take 1 tablet by mouth once daily PRILOSEC 40 MG CPDR One tablet by mouth daily OMEPRAZOLE [id number] Lenore White MD orphenadrine citrate 100 mg oral tablet (12 sources) Muscle Relaxant Start: 12-19-2010 End: 02-15-2012 take 1 tablet by mouth at bedtime NORFLEX SOLN 100mg, One tablet by mouth at bedtime. ORPHENADRINE [employer] [employer]N [id number] Solange Harley predniSONE 20 mg oral tablet (20 sources) Start: 06-18-2024 End: 07-08-2024 take 2 tablets by mouth once daily Prednisone 20 mg tablet Discontinued 40 mg PO DAILY 10 5 June 18, 2024 1:00am July 08, 2024 3:34pm Start: 03-25-2024 End: 06-14-2024 take 1 tablet by mouth once daily Prednisone 50 mg tablet Discontinued 50 mg PO DAILY 4 4 0 March 25, 2024 12:00am June 14, 2024 6:52pm Start: 12-26-2022 End: 03-08-2023 take 1 tablet by mouth once daily Prednisone 50 mg tablet Discontinued 50 mg PO DAILY 5 5 0 December 26, 2022 12:00am March 08, 2023 4:43pm Start: 09-29-2022 End: 10-11-2022 predniSONE (DELTASONE) 10 mg tablet Indications: Polyarthralgia Take 4 tabs daily x 3 days, then 3 tabs x 3 days, 2 tabs x 3 days, then 1 tab x3 days with food. 30 tablet 0 09/29/2022 10/11/2022 Active Start: 09-03-2022 End: 10-23-2022 take 3 tablets by mouth once daily Prednisone 20 mg tablet Discontinued 60 mg PO DAILY September 03, 2022 1:00am October 23, 2022 3:50pm Start: 08-07-2022 End: 10-23-2022 take 2 tablets by mouth once daily Prednisone 20 mg tablet Discontinued 40 mg PO DAILY August 07, 2022 1:00am October 23, 2022 4:08pm Start: 08-07-2022 End: 10-23-2022 take 40 mg by mouth once daily Prednisone Discontinued 40 MG PO DAILY August 07, 2022 1:00am October 23, 2022 4:08pm Start: 08-07-2022 End: 10-23-2022 take 60 mg by mouth once daily Prednisone Discontinued 60 MG PO DAILY September 03, 2022 1:00am October 23, 2022 3:50pm Start: 05-24-2022 End: 07-05-2022 take 3 tablets by mouth once daily Prednisone 20 mg tablet Discontinued 60 mg PO DAILY May 24, 2022 12:00am July 05, 2022 2:24pm Start: 05-24-2022 End: 07-05-2022 take 60 mg by mouth once daily Prednisone Discontinued 60 MG PO DAILY May 24, 2022 12:00am July 05, 2022 2:24pm Start: 02-20-2022 End: 02-25-2022 take 1 tablet by mouth once daily at mealtime predniSONE (DELTASONE) 20 mg tablet Indications: Chronic obstructive pulmonary disease, unspecified COPD type (HCC) Take 1 tablet by mouth once daily for 5 days. Take daily with food. 5 tablet 0 02/20/2022 02/25/2022 Active Start: 05-21-2021 End: 08-19-2021 take 2 tablets by mouth once daily Prednisone 20 MG tablet Discontinued 40 mg PO DAILY May 21, 2021 12:00am August 19, 2021 2:09pm Start: 05-21-2021 End: 08-19-2021 take 40 mg by mouth once daily Prednisone Discontinued 40 MG PO DAILY May 21, 2021 12:00am August 19, 2021 2:09pm Start: 03-29-2021 End: 04-03-2021 take 2 tablets by mouth once daily Prednisone 20 mg tablet Discontinued 40 mg PO DAILY 10 5 0 March 29, 2021 12:00am April 02, 2021 12:00am April 03, 2021 12:01am Start: 03-29-2021 End: 04-03-2021 take 40 mg by mouth once daily Prednisone Discontinued 40 MG PO DAILY 10 March 29, 2021 12:00am April 03, 2021 12:01am Start: 10-10-2020 End: 11-08-2020 take 4 tablets by mouth once daily Prednisone 10 MG tablet Discontinued 0 mg PO DAILY 30 October 10, 2020 1:00am November 08, 2020 11:40am 40mg daily x3 days 30mg daily x3 days 20mg daily x3 days 10mg daily x3 days Please contact the information source for Taper Schedule details. Start: 10-10-2020 End: 11-08-2020 take 40 mg by mouth once daily Prednisone Discontinued 0 MG PO DAILY October 10, 2020 1:00am November 08, 2020 11:40am 40mg daily x3 days 30mg daily x3 days 20mg daily x3 days 10mg daily x3 days Start: 06-18-2020 End: 06-23-2020 take 1 tablet by mouth once daily at mealtime predniSONE (DELTASONE) 20 mg tablet Indications: DDD (degenerative disc disease), lumbar , Exacerbation of chronic back pain Take 1 tablet by mouth once daily for 5 days. Take daily with food. 5 tablet 06/18/2020 06/23/2020 Start: 04-08-2020 End: 05-06-2020 take 2 tablets by mouth once daily at mealtime Prednisone 20 MG tablet Discontinued 40 mg PO DAILY April 08, 2020 12:00am May 06, 2020 1:04pm With food Start: 04-08-2020 End: 05-06-2020 take 40 mg by mouth once daily at mealtime Prednisone Discontinued 40 MG PO DAILY April 08, 2020 12:00am May 06, 2020 1:04pm With food Start: 11-07-2018 End: 12-11-2018 Prednisone 10 mg tablet Disc ontinued 10 mg PO daily 30 0 November 07, 2018 12:00am December 11, 2018 1:17pm take 4 tabs for three days, then 3 tabs for three days, then 2 tabs for three days, then 1 tab for 3 days Start: 05-23-2018 End: 07-29-2018 take 3 tablets by mouth once daily at mealtime Prednisone 20 mg tablet Discontinued 60 mg PO daily May 23, 2018 12:00am July 29, 2018 2:44pm administer with food or milk Start: 05-23-2018 End: 07-29-2018 take 60 mg by mouth once daily at mealtime Prednisone Discontinued 60 MG PO daily May 23, 2018 12:00am July 29, 2018 2:44pm administer with food or milk Start: 03-18-2018 End: 04-29-2018 Prednisone 10 mg tablet Disc ontinued 10 mg PO daily 30 March 18, 2018 12:00am April 29, 2018 10:31am take 4 tabs for three days, then 3 tabs for three days, then 2 tabs for three days, then 1 tab for 3 days Start: 08-10-2016 End: 02-09-2017 PREDNISONE 10 MG TABS Take a s directed PREDNISONE [id number] Tia Hampton PA-C Start: 06-16-2013 End: 07-07-2013 take 1 tablet by mouth once daily PREDNISONE 5 MG TABS one po daily PREDNISONE [id number] Lenore White MD Comment on above: [facility]. Take daily with food. Take 4 tabs daily x 3 days, then 3 tabs x 3 days, 2 tabs x 3 days, then 1 tab x3 days with food. pregabalin 25 mg oral capsule (20 sources) Start: 09-14-19 End: 06-27-20 take 1 capsule by mouth at bedtime Pregabalin 25 mg capsule Discontinued 25 mg PO AT BEDTIME March 08, 2023 12:00am June 11, 2023 2:30pm Comment on above: Take 1 capsule by mo [facility] daily at bedtime for 30 days. QUEtiapine 25 mg oral tablet (1 source) Atypical Antipsychotic Start: 05-24-20 End: 12-02-19 21 take 1 tablet by mouth once daily QUEtiapine (SEROQUEL) 25 mg tablet Take 1 tablet by mouth once daily. 30 tablet 5 05/24/2020 12/01/2020 Discontinued simvastatin 80 mg oral tablet (12 sources) HMG-CoA Reductase Inhibitor Start: 12-20-19 End: 10-05-19 12 take 1 tablet by mouth at bedtime ZOCOR 80 MG TABS One tablet by mouth at bedtime. SIMVASTATIN [id number] Rory Mckay MD 60 actuat tiotropium 0.0025 mg/actuat inhalation spray (20 sources) Anticholinergic Start: 07-02-20 End: 06-27-20 take 2 spray(s) by mouth once daily SPIRIVA RESPIMAT 2.5 mcg/actuation inhaler INHALE 2 SPRAYS BY MOUTH ONCE DAILY AT APPROXIMATELY THE SAME TIME EACH DAY 0 07/02/2022 06/27/2023 Discontinued Start: 09-07-2021 End: 06-11-2023 take 2.5 ug by inhalation once daily Tiotropium [place] (Spiriva Respimat) 2.5 mcg/actuation mist Discontinued 2 NMA INHALATION daily 3 October 17, 2022 7:49am June 11, 2023 2:28pm administer at approximately the same time(s) each day Start: 09-07-2021 End: 10-17-2022 take 1 puff(s) by inhalation once daily Tiotropium [place] (Spiriva Respimat) 2.5 mcg/actuation mist Active 2 PUFF INHALATION daily October 17, 2022 7:49am administer at approximately the same time(s) each day Start: 05-10-2020 End: 07-28-2020 take 1 puff(s) by inhalation once daily Tiotropium [place] (Spiriva Respimat) 2.5 mcg/actuation mist Discontinued 2 PUFF INHALATION daily May 10, 2020 11:11am July 28, 2020 3:17pm Start: 05-10-2020 End: 07-28-2020 take 2.5 ug by inhalation once daily Tiotropium [place] (Spiriva Respimat) 2.5 mcg/actuation mist Discontinued 2 NMA INHALATION daily 4 May 10, 2020 12:00am July 28, 2020 3:17pm Start: 05-10-2020 End: 07-28-2020 Start: 05-10-2020 End: 07-28-2020 take 1 puff(s) by inhalation once daily Tiotropium [place] (Spiriva Respimat) 2.5 mcg/actuation mist Discontinued 2 PUFF INHALATION daily May 09, 2020 11:00pm July 28, 2020 2:17pm Start: 05-10-2020 End: 07-28-2020 take 1 puff(s) by inhalation once daily Tiotropium [place] (Spiriva Respimat) 2.5 mcg/actuation mist Discontinued 2 PUFF INHALATION daily May 10, 2020 12:00am July 28, 2020 3:17pm Start: 08-19-2013 End: 07-15-2014 take 1 capsule by inhalation once daily SPIRIVA HANDIHALER 18 MCG CAPS inhale 1 capsule daily TIOTROPIUM BROMIDE MONOHYDRATE [id number] Sanna Elam RN Start: 08-19-2013 SPIRIVA HANDIH ALER 18 MCG CAPS inhale 1 capsule daily TIOTROPIUM BROMIDE MONOHYDRATE [id number] Sanna Elam RN Start: 08-19-2013 End: 07-15-2014 SPIRIVA HANDIHALER 18 MCG CA PS inhale 1 capsule daily TIOTROPIUM BROMIDE MONOHYDRATE [id number] Rory Mckay MD Comment on above: INHALE 2 SPRAYS BY Jas BOOKER ONCE DAILY AT APPROXIMATELY THE SAME TIME EACH DAY TOBRAMYCIN NEBU (12 sources) Aminoglycoside Antibacterial TOB I NEBU by nebulizer tid TOBRAMYCIN NEBU [id number] Lenore White MD End: 11-28-2012 ARMADNO NEBU by nebulizer tid 2 TOBRAMYCIN NEBU [id number] Tia Hampton PA-C triamcinolone acetonide 0.055 mg/actuat metered dose nasal spray (20 sources) Corticosteroid Start: 03-26-2021 End: 08-06-2023 Triamcinolone Acetonide (Nasacort) 55 mcg aerosol,spray Discontinued 1 NMA INTRANASAL DAILY 16.9 6 June 10, 2021 4:20pm August 06, 2023 2:29pm Start: 03-26-2021 End: 06-27-2023 Start: 03-26-2021 End: 06-10-2021 Triamcinolone Acetonide (Nasacort) 55 mcg aerosol,spray Active 1 SPRAY INTRANASAL DAILY 16.9 June 10, 2021 4:20pm Start: 05-23-2018 End: 05-23-2018 inject 60 mg by intramuscular injection once Kenalog (triamcinolone acetonide) 40 mg/mL suspension for injection Discontinued 60 MG IM ONCE 1.5 May 23, 2018 10:18am May 23, 2018 11:15am Comment on above: Use 1 [place] in the n ose once daily. valACYclovir 500 mg oral tablet (7 sources) Herpesvirus Nucleoside Analog DNA Polymerase Inhibitor, Herpes Simplex Virus Nucleoside Analog DNA Polymerase Inhibitor, Herpes Zoster Virus Nucleoside Analog DNA Polymerase Inhibitor Start: 03-29-20 End: 05-11-20 valACYclovir (VALTREX) 500 mg tablet Take 500 mg by mouth. 0 03/29/2022 05/11/2022 Discontinued Comment on above: Take 500 mg by mouth . vitamin d 1000 unt oral tablet (20 sources) Start: 02-15-20 End: 07-10-20 take 1 tablet by mouth once daily VITAMIN D 1000 UNIT TABS One tablet by mouth daily CHOLECALCIFEROL [id number] Lenore White MD Start: 02-15-2012 take 1 tablet by chang th once daily VITAMIN D 1000 UNIT TABS One tablet by mouth daily CHOLECALCIFEROL [id number] Rory Mckay MD Start: 10-05-2011 End: 06-04-2013 take 1 tablet by mouth once daily VITAMIN D 1000 UNIT TABS One tablet by mouth daily CHOLECALCIFEROL [id number] Rory Mckay MD Start: 10-05-2011 End: 06-04-2013 take 1 tablet by mouth once daily VITAMIN D 1000 UNIT TABS One tablet by mouth daily CHOLECALCIFEROL [id number] Lenore White MD Start: 10-05-2011 take 1 tablet by chang th once daily VITAMIN D 1000 UNIT TABS One tablet by mouth daily CHOLECALCIFEROL [id number] Rory Mckay MD Problems Active Problems Problem Classification Problem Date Documented Da te Episodic/Chronic Acute and unspecified renal failure (11 sources) Injury of kidney; Translations: [Acute kidney failure, unspecified] 11-01-2022 Episodic Acute bronchitis (20 sources) Acute bronchitis; Translations: [Acute bronchitis, unspecified] 08-16-2021 Episodic Acute cerebrovascular disease (14 sources) Hemorrhagic cerebral infarction; Translations: [Nontraumatic intracerebral hemorrhage, unspecified] 09-29-2021 Chronic Acute myocardial infarction (10 sources) Myocardial infarction; Translations: [Non-ST elevation (NSTEMI) myocardial infarction] 11-01-2022 Chronic Aortic; peripheral; and visceral artery aneurysms (20 sources) Aneurysm of thoracic aorta; Translations: [Thoracic aortic aneurysm, without rupture] Onset: 2 02-15-2012 Chronic Asthma (20 sources) Moderate persistent asthma; Translations: [Moderate persistent asthma, uncomplicated] Onset: 3 Chronic Blindness and vision defects (14 sources) Visual hallucinations; Translations: [Visual hallucinations] 10-09-2020 Episodic Comment on above: Unclear etiology, on going since 02/2020 per report, following outpatient with [facility] physician, recommended wean off paxil and change to alternate agent as start. Cardiac dysrhythmias (20 sources) Paroxysmal atrial fibrillation; Translations: [Paroxysmal atrial fibrillation] Onset: 4 07-25-2021 Chronic Cardiac dysrhythmias (20 sources) Palpitations; Translations: [Palpitations] Onset: 1 12-19-2010 Episodic Chronic kidney disease (20 sources) Chronic kidney disease stage 3; Translations: [CKD (chronic kidney disease) stage 3, GFR 30-59 ml/min] Onset: 8 10-03-2017 Chronic Chronic kidney disease (1 source) Chronic kidney disease; Translations: [Stage 3 chronic kidney disease, unspecified whether stage 3a or 3b CKD (HCC)] Onset: 8 Chronic obstructive pulmonary disease and bronchiectasis (20 sources) Chronic obstructive lung disease; Translations: [Chronic obstructive pulmonary disease, unspecified] Onset: 3 Chronic Coagulation and hemorrhagic disorders (14 sources) Blood coagulation disorder; 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] 01-05-2022 Chronic Conditions associated with dizziness or vertigo (5 sources) Lightheadedness; Translations: [Dizziness and giddiness] 11-13-2022 Episodic Congestive heart failure; nonhypertensive (20 sources) Chronic diastolic heart failure; Translations: [Chronic diastolic (congestive) heart failure] Onset: 4 Chronic Coronary atherosclerosis and other heart disease (20 sources) Atherosclerotic heart disease of [place] coronary artery without angina pectoris; Translations: [Coronary atherosclerosis] Onset: 1 07-17-2016 Chronic Comment on above: Mild Deficiency and other anemia (7 sources) Anemia; Translations: [Anemia, unspecified] Episodic Delirium, dementia, and amnestic and other cognitive disorders (20 sources) Senile dementia of the Lewy body type; Translations: [Dementia with Lewy bodies] Onset: 0 06-02-2020 Chronic Diseases of white blood cells (12 sources) Leukocytosis; Translations: [Elevated white blood cell count, unspecified] 11-01-2022 Chronic Disorders of lipid metabolism (20 sources) Hyperlipidemia; Translations: [Hyperlipidemia, unspecified] Onset: 1 09-30-2009 Chronic E Codes: Fall (15 sources) Fall; Translations: [Unspecified fall, subsequent encounter] Episodic Esophageal disorders (20 sources) Gastroesophageal reflux disease; Translations: [Gastro-esophageal reflux disease without esophagitis] Onset: 3 04-05-2013 Chronic Fever of unknown origin (14 sources) Fever; Translations: [Fever, unspecified] 08-16-2021 Episodic Heart valve disorders (20 sources) Aortic incompetence, non-rheumatic ; Translations: [Aortic valve stenosis] Onset: 1 Resolved: 7 08-09-2016 Chronic Comment on above: Sushila colón, 2003, Albaro MACIEL 10/10 (#21 On-X mechanical valve) Hypertension with complications and secondary hypertension (20 sources) Hypertensive heart AND chronic kidney disease with congestive heart failure; Translations: [Hypertensive heart and chronic kidney disease with heart failure and stage 1 through stage 4 chronic kidney disease, or unspecified chronic kidney disease] Onset: 2 09-13-2021 Chronic Immunizations and screening for infectious disease (1 source) Vaccination needed; Translations: [Encounter for immunization] Episodic Malaise and fatigue (20 sources) Fatigue; Translations: [Other fatigue] Onset: 4 03-16-2014 Episodic Mood disorders (20 sources) Depressive disorder; Translations: [Depression, unspecified depression type] Onset: 4 Chronic Mood disorders (1 source) Mood disorders; Translations: [Depression, unspecified depression type] Onset: 1 Mycoses (8 sources) Candidiasis of mouth; Translations: [Candidal stomatitis] 11-09-2022 Episodic Nonspecific chest pain (20 sources) Chest pain, unspecified; Translations: [Chest pain] Onset: 1 12-19-2010 Episodic Nutritional deficiencies (6 sources) Vitamin D deficiency; Translations: [Vitamin D deficiency, unspecified] Chronic Occlusion or stenosis of precerebral arteries (20 sources) Bilateral stenosis of carotid arteries; Translations: [Occlusion and stenosis of bilateral carotid arteries] Onset: 2 07-06-2022 Chronic Osteoporosis (20 sources) Osteoporosis; Translations: [Other osteoporosis without current pathological fracture] Onset: 2 Chronic Other aftercare (20 sources) Long-term current use of anticoagulant; Translations: [shelter (current) use of anticoagulants] 01-28-2019 Episodic Other aftercare (5 sources) Drug therapy finding; Translations: [Other computer terminal operator (current) drug therapy] 05-26-2022 Episodic Other aftercare (3 sources) Anticoagulant effect; Translations: [terminal operations manager (current) use of anticoagulants] 01-21-2023 Episodic Other aftercare (8 sources) Long-term current use of insulin; Translations: [shelter (current) use of insulin] Onset: 4 07-09-2024 Episodic Other circulatory disease (20 sources) Vascular disorder; Translations: [Other disorders of arteries, arterioles and capillaries in diseases classified elsewhere] Onset: 4 Chronic Other circulatory disease (1 source) Other disorders of arteries, arterioles and capillaries in diseases classified elsewhere; Translations: [Other disorders of arteries, arterioles and capillaries in diseases classified elsewhere (HCC)] Onset: 4 Chronic Other ear and sense organ disorders (2 sources) Otorrhagia of right ear; Translations: [Otorrhagia, right ear] Episodic Other ear and sense organ disorders (1 source) Impacted cerumen in right ear; Translations: [Impacted cerumen, right ear] Episodic Other eye disorders (14 sources) Pain in eye; Translations: [Ocular pain, bilateral] 01-05-2022 Episodic Other eye disorders (1 source) Red eye; Translations: [Other specified disorders of eye and adnexa] Episodic Other fractures (3 sources) Compression fracture of thoracic vertebra; Translations: [Wedge compression fracture of unspecified thoracic vertebra, sequela] Episodic Other fractures (3 sources) Compression fracture of lumbar spine; Translations: [Collapsed vertebra, not elsewhere classified, lumbar region, sequela of fracture] Episodic Other fractures (1 source) Wedge compression fracture of unspecified thoracic vertebra, sequela; Translations: [Compression fracture of thoracic vertebra, unspecified thoracic vertebral level, sequela] Onset: 3 Episodic Other fractures (1 source) Collapsed vertebra, not elsewhere classified, lumbar region, sequela of fracture; Translations: [Compression fracture of lumbar spine, non-traumatic, sequela] Onset: 3 Episodic Other gastrointestinal disorders (2 sources) Dysphagia; Translations: [Dysphagia, unspecified] 02-26-2023 Episodic Other gastrointestinal disorders (1 source) Dysphagia, unspecified; Translations: [Dysphagia, unspecified type] Onset: 3 Episodic Other lower respiratory disease (1 source) Interstitial lung disease; Translations: [Interstitial pulmonary disease, unspecified] Chronic Other lower respiratory disease (20 sources) Dyspnea; Translations: [Dyspnea, unspecified] Onset: 3 06-13-2013 Episodic Other lower respiratory disease (18 sources) Cough; Translations: [Cough] Episodic Other lower respiratory disease (7 sources) Dyspnea on exertion; Translations: [Dyspnea, unspecified] 05-19-2021 Episodic Other lower respiratory disease (14 sources) Hemoptysis; Translations: [Hemoptysis] 01-28-2019 Episodic Other lower respiratory disease (14 sources) Hypoxemia; Translations: [Hypoxemia] 04-04-2022 Episodic Comment on above: Wears 2 L/min with s leep Other lower respiratory disease (20 sources) Chronic cough; Translations: [Chronic cough] 12-05-2017 Episodic Other lower respiratory disease (14 sources) Respiratory insufficiency; Translations: [Other abnormalities of breathing] 07-07-2020 Episodic Other lower respiratory disease (14 sources) Infection due to Pseudomonas aeruginosa; Translations: [Other specified respiratory disorders] 12-11-2018 Episodic Comment on above: History of recurrent pseudomonal infections in the past Other lower respiratory disease (2 sources) Dyspnea, unspecified; Translations: [Other respiratory abnormalities] Episodic Other lower respiratory disease (4 sources) Hypoxemia; Translations: [Hypoxemia] Episodic Other lower respiratory disease (2 sources) Other forms of dyspnea; Translations: [Chronic dyspnea] 04-11-2023 Episodic Other nervous system disorders (7 sources) Disorder of brain; Translations: [Encephalopathy, unspecified] 10-09-2020 Chronic Other nervous system disorders (13 sources) Paresthesia; Translations: [Paresthesia of skin] 01-27-2022 Episodic Other non-traumatic joint disorders (14 sources) Shoulder joint pain; Translations: [Pain in left shoulder] 04-09-2020 Episodic Other non-traumatic joint disorders (1 source) Multiple joint pain; Translations: [Pain in unspecified joint] Episodic Other nutritional; endocrine; and metabolic disorders (20 sources) Body mass index (BMI) 33.0-33.9, adult; Translations: [Body mass index (BMI) 34.0-34.9, adult] Onset: 4 Resolved: 5 01-27-2016 Chronic Other nutritional; endocrine; and metabolic disorders (2 sources) Body mass index (BMI) 34.0-34.9, adult; Translations: [Body mass index (BMI) 34.0-34.9, adult] Onset: 5 01-12-2015 Chronic Other nutritional; endocrine; and metabolic disorders (6 sources) Body mass index (BMI) 32.0-32.9, adult; Translations: [Body mass index (BMI) 32.0-32.9, adult] Onset: 4 10-30-2013 Chronic Other nutritional; endocrine; and metabolic disorders (14 sources) Obesity; Translations: [Obesity, unspecified] 07-07-2020 Chronic Other nutritional; endocrine; and metabolic disorders (7 sources) Unintentional weight loss; Translations: [Abnormal weight loss] 03-29-2021 Episodic Other nutritional; endocrine; and metabolic disorders (1 source) Adult failure to thrive syndrome; Translations: [Adult failure to thrive] Episodic Other nutritional; endocrine; and metabolic disorders (4 sources) Weight loss; Translations: [Abnormal weight loss] Episodic Other screening for suspected conditions (not mental disorders or infectious disease) (5 sources) Deviation of international normalized ratio from target range; Translations: [Abnormal coagulation profile] 11-13-2022 Episodic Other upper respiratory disease (14 sources) Allergic rhinitis; Translations: [Allergic rhinitis, unspecified] 10-09-2020 Chronic Other upper respiratory disease (20 sources) Acute bronchospasm; Translations: [Acute bronchospasm] 09-03-2022 Episodic Other upper respiratory disease (1 source) Crusting on nose; Translations: [Other specified disorders of nose and nasal sinuses] Episodic Other upper respiratory disease (3 sources) Bleeding from nose; Translations: [Epistaxis] 01-21-2023 Episodic Other upper respiratory infections (20 sources) Chronic sphenoidal sinusitis; Translations: [Chronic sinusitis] Onset: 2 07-10-2012 Chronic Comment on above: H/O Pseudomonas, MRS A Other upper respiratory infections (14 sources) Acute sinusitis; Translations: [Acute maxillary sinusitis] Onset: 3 08-02-2012 Episodic Parkinson`s disease (20 sources) Parkinsonism; Translations: [Parkinson's disease] Onset: 4 Chronic Pneumonia (except that caused by tuberculosis or sexually transmitted disease) (1 source) Pneumonia (except that caused by tuberculosis or sexually transmitted disease); Translations: [Pneumonia due to other Gram-negative bacteria] Onset: 4 Prolapse of female genital organs (20 sources) Disorder of rectum; Translations: [Rectocele] Onset: 2 11-06-2011 Chronic Residual codes; unclassified (14 sources) Obstructive sleep apnea syndrome; Translations: [Obstructive sleep apnea (adult) (pediatric)] 09-10-2019 Chronic Respiratory failure; insufficiency; arrest (adult) (20 sources) Chronic hypoxemic respiratory failure; Translations: [Chronic respiratory failure with hypoxia] Onset: 4 Resolved: 4 Chronic Respiratory failure; insufficiency; arrest (adult) (1 source) Respiratory failure; insufficiency; arrest (adult); Translations: [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 congestive heart failure and stage 3 chronic kidney disease, unspecified whether stage 3a or 3b CKD (HCC)] Onset: 2 Schizophrenia and other psychotic disorders (20 sources) Delusion of persecution; Translations: [Delusional disorders] Onset: 2 09-16-2021 Chronic Skin and subcutaneous tissue infections (1 source) Infection of skin; Translations: [Local infection of the skin and subcutaneous tissue, unspecified] Episodic Spondylosis; intervertebral disc disorders; other back problems (20 sources) Degeneration of lumbar intervertebral disc; Translations: [Other intervertebral disc degeneration, lumbar region] Onset: 6 03-23-2016 Chronic Superficial injury; contusion (1 source) Contusion of thoracic spine; Translations: [Contusion of unspecified back wall of thorax, initial encounter] 04-15-2024 Episodic Syncope (20 sources) Syncope and collapse; Translations: [Syncope and collapse] Onset: 1 12-19-2010 Episodic Thyroid disorders (20 sources) Thyroid nodule; Translations: [Hyperthyroidism] Onset: 2 09-30-2009 Chronic Unclassified (2 sources) Replacement of aortic valve ; Translations: [Presence of prosthetic heart valve] Onset: 1 01-27-2016 Unclassified (4 sources) Long-term drug therapy; Translations: [Other computer terminal operator (current) drug therapy] Onset: 1 12-19-2010 Unclassified (1 source) Lewy body dementia with psychotic disturbance, unspecified dementia severity (HCC); Translations: [Lewy body dementia with psychotic disturbance, unspecified dementia severity (HCC)] Onset: 0 Unclassified (1 source) Parkinsonism, unspecified Parkinsonism type (HCC); Translations: [Parkinsonism, unspecified Parkinsonism type (HCC)] Onset: 4 Urinary tract infections (14 sources) Urinary tract infectious disease; Translations: [Urinary tract infection, site not specified] 01-05-2022 Episodic Viral infection (14 sources) Viral disease; Translations: [Viral infection, unspecified] 10-11-2021 Episodic Past or Other Problems Problem Classification Problem Date Documented Da te Episodic/Chronic Acute posthemorrhagic anemia (20 sources) Acute posthemorrhagic anemia; Translations: [Acute posthemorrhagic anemia] Onset: 10-07-2013 Resolved: 04-30-2014 07-25-2021 Episodic Administrative/social admission (20 sources) Patient encounter status; Translations: [Other specified counseling] Onset: 10-06-2013 Resolved: 01-02-2014 Episodic Anxiety disorders (20 sources) Anxiety; Translations: [Anxiety disorder, unspecified] Onset: 10-06-2013 Resolved: 12-19-2016 Chronic Complications of surgical procedures or medical care (20 sources) Cardiac insufficiency following cardiac surgery; Translations: [Postprocedural cardiac insufficiency following cardiac surgery] Onset: 10-07-2013 Resolved: 10-09-2013 07-25-2021 Chronic Diabetes mellitus without complication (20 sources) Impaired glucose tolerance; Translations: [Impaired glucose tolerance (oral)] Onset: 09-20-2012 Resolved: 12-19-2016 09-20-2012 Episodic Essential hypertension (20 sources) Hypertensive disorder; Translations: [Essential (primary) hypertension] Onset: 10-14-2013 Resolved: 07-06-2022 09-30-2009 Chronic Fluid and electrolyte disorders (20 sources) Hypokalemia; Translations: [Metabolic acidosis, NAG, acidifying salts] Onset: 09-29-2013 Resolved: 01-05-2016 01-05-2016 Episodic Genitourinary symptoms and ill-defined conditions (20 sources) Microscopic hematuria; Translations: [Other microscopic hematuria] Onset: 05-17-2016 Resolved: 08-31-2020 08-31-2020 Episodic Nutritional deficiencies (20 sources) Iron deficiency; Translations: [Iron deficiency] Onset: 12-23-2016 12-23-2016 Episodic Other acquired deformities (20 sources) Compression fracture of vertebral column; Translations: [Deforming dorsopathy, unspecified] Onset: 04-12-2016 04-12-2016 Episodic Other acquired deformities (2 sources) Deforming dorsopathy, unspecified; Translations: [Compression deformity of vertebra] Onset: 04-12-2016 Episodic Other aftercare (2 sources) Other computer terminal operator (current) drug therapy; Translations: [Other senior care (current) drug therapy] Onset: 12-19-2010 12-19-2010 Episodic Other aftercare (2 sources) terminal operations manager (current) use of insulin; Translations: [Encounter for long-term (current) use of insulin (HCC)] Onset: 11-21-2022 Episodic Other and unspecified benign neoplasm (20 sources) Adrenal adenoma; Translations: [Benign neoplasm of unspecified adrenal gland] Onset: 05-17-2016 12-19-2016 Episodic Other and unspecified benign neoplasm (20 sources) Angiomyolipoma of left kidney; Translations: [Benign lipomatous neoplasm of kidney] Onset: 04-27-2017 04-27-2017 Episodic Other and unspecified benign neoplasm (20 sources) History of polyp of colon; Translations: [Personal history of colonic polyps] Onset: 05-15-2017 05-15-2017 Episodic Other and unspecified benign neoplasm (20 sources) Lipoma (clinical); Translations: [Benign lipomatous neoplasm, unspecified] Onset: 05-17-2016 Resolved: 08-31-2020 08-31-2020 Episodic Other and unspecified benign neoplasm (20 sources) Benign lipomatous neoplasm, unspecified; Translations: [Benign neoplasm of kidney, except pelvis] Onset: 05-17-2016 Resolved: 08-31-2020 08-31-2020 Episodic Other congenital anomalies (20 sources) Diaphragmatic eventration; 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] Onset: 10-10-2013 Resolved: 10-14-2013 10-14-2013 Chronic Other diseases of kidney and ureters (20 sources) Cyst of kidney; Translations: [Cyst of kidney, acquired] Onset: 05-17-2016 Resolved: 12-07-2021 12-19-2016 Episodic Other gastrointestinal disorders (20 sources) Pneumoperitoneum; Translations: [Other specified disorders of peritoneum] Onset: 10-10-2013 Resolved: 04-30-2014 07-25-2021 Episodic Other nervous system disorders (20 sources) Postoperative pain ; Translations: [Other acute postprocedural pain] Onset: 10-08-2013 Resolved: 10-14-2013 07-25-2021 Episodic Other nutritional; endocrine; and metabolic disorders (20 sources) Obese class I; Translations: [Obesity, unspecified] Onset: 07-25-2019 Resolved: 01-02-2024 07-25-2019 Chronic Other upper respiratory disease (6 sources) Hoarse; Translations: [Dysphonia] Onset: 09-05-2012 09-07-2012 Episodic Other upper respiratory disease (20 sources) Lesion of nose; Translations: [Other specified disorders of nose and nasal sinuses] Onset: 07-06-2022 Resolved: 01-02-2024 07-06-2022 Episodic Pleurisy; pneumothorax; pulmonary collapse (20 sources) Atelectasis; Translations: [Atelectasis] Onset: 10-08-2013 Resolved: 04-30-2014 09-03-2022 Episodic Pneumonia (except that caused by tuberculosis or sexually transmitted disease) (20 sources) Pneumonia; Translations: [Pneumonia, unspecified organism] Onset: 04-17-2024 05-06-2021 Episodic Regional enteritis and ulcerative colitis (20 sources) Pseudopolyposis of colon; Translations: [Inflammatory polyps of colon without complications] Onset: 05-15-2017 Resolved: 08-31-2020 08-31-2020 Chronic Spondylosis; intervertebral disc disorders; other back problems (20 sources) Low back pain; Translations: [Low back pain] Onset: 03-23-2016 Resolved: 12-19-2016 09-29-2021 Episodic Unclassified (2 sources) Finding of body mass index; Translations: [Body mass index (BMI) 34.0-34.9, adult] Onset: 01-12-2015 01-12-2015 Unclassified (12 sources) 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 07-15-2018 Unclassified (20 sources) ASA CLASS II Onset: 11-25-2002 Resolved: 11-06-2011 11-06-2011 Unclassified (20 sources) SUMMARY Onset: 10-10-2013 Resolved: 06-16-2016 07-25-2021 Results Test Name Value Interpretation Reference Range Facility INR (POC)on 04-14-2025 INR Coag (PPP) [Relative time] 2.5 {INR} High 0.8 - 1.2 [facility] Internal Quality Check Acceptable [facility] Interpretation and review of laboratory results Abnormal [facility] Location:[facility], [address], [place], [address] [facility] POINT OF CARE [facility] Pulmonary Visit Reporton Pulmonary Visit Report [facility] [place] [address] [place] [address] OFFICE VISIT Date of Service: 03/23/25 MR#: [id number] Acct: [id number] Name: ELZA CHU Rep #: [id number] : 1945 Provider: CHARLENE Adame Age/Sex: 79/F [place] [facility] Status: Signed Assessment and Plan Assessment and Plan (1) Bronchiectasis: Status: Chronic Qualifiers: Bronchiectasis type: uncomplicated Qualified Code(s): J47.9 - Bronchiectasis, uncomplicated Plan: Stable, no signs of exacerbation of bronchiectasis today. She is not currently requiring maintenance medications. No additional testing at this time. I reminded her of the importance to use the Acapella device. Contact the office with any signs of new or worsening symptoms. Follow-up in the office in 6 months. (2) Hypoxemia: Status: Chronic Comment: Wears 2 L/min with sleep Plan: The patient is using and benefiting from oxygen. Continue to utilize to maintain a saturation of 89-92%. (3) Lewy body dementia: Status: Chronic Qualifiers: Dementia severity: severe Dementia behavioral or psychological symptom: with anxiety Qualified Code(s): G31.83 - Neurocognitive disorder with Lewy bodies; F02.C4 - Dementia in other diseases classified elsewhere, severe, with anxiety Plan: Complicates exam, plan, care and prognosis. The patient is currently being treated by hospice. Medications: Changed From albuterol sulfate Use q4 hours and PRN for wheezing 2.5 mg (3 mL) inhalation Q4H PRN 25 vials 0RF J47.9 - Bronchiectasis, uncomplicated To albuterol sulfate 2.5 mg (3 mL) inhalation BID 60 vials 11RF J47.9 - Bronchiectasis, uncomplicated Plan Details Follow Up: 6 Months HPI 6 M FU Chief Complaint: Routine follow-up HPI Comments Details: This patient presents to the office today for follow-up of her bronchiectasis complicated by stage of 7 Lewy body dementia. She is in a wheelchair and on supplemental oxygen. She is accompanied today by her . She has not recently been seen in the ED or urgent care for any respiratory illness. She has not required antibiotics or prednisone for breathing problems. She is not currently on any maintenance inhalers. She is compliant with Singulair. She has not recently been using her Acapella device. She is not currently using Mucinex. She is currently using albuterol 2-3 times per day. She occasionally uses the albuterol in the nebulizer. She does have shortness of breath with exertion. She has a cough that is productive of thick yellow colored sputum. She denies any wheezing or palpitations. She reports intermittent chest and chest pain. She also denies any fever, chills or body aches. She is compliant with supplemental oxygen. She is currently using 4 L/min continuous at all times. Intake Vital Signs 09/24/24 08:39 03/23/25 09:01 Height 5 ft 5 ft Weight: 112 lb 103 lb BMI 21.9 20.1 BP 91/60 94/63 Blood Pressure Location Rt brachial Lt brachial Position Sitting Sitting Respiration 20 H 16 Pulse 52 L 102 H Pulse Source Monitor Monitor Temp 97.4 F L 97.3 F L Temperature Source Temporal Artery Temporal Artery Pulse Oximetry (%) 96 93 Oxygen Delivery Method nasal canula nasal canula Oxygen Flow Rate (L/min) 3 4 Intake Visit Reasons: 6 M FU Field Staff Manager Required: No DME Vendor: [facility] Accompanied by: Is patient in pain?: No Allergies risperidone Allergy (Severe, Verified 03/23/25 13:33) Confusion Sulfa (Sulfonamide Antibiotics) Allergy (Verified 03/23/25 13:33) Swelling celecoxib (From Celebrex) Adverse Reaction (Severe, Verified 03/23/25 13:33) Swelling dextromethorphan (From Delsym) Adverse Reaction (Severe, Verified 03/23/25 13:33) hallucination adhesive Adverse Reaction (Verified 03/23/25 13:33) blisters codeine Adverse Reaction (Verified 03/23/25 13:33) Itching levofloxacin (From Levaquin) Adverse Reaction (Verified 03/23/25 13:33) pain in legs and swelling lisinopril Adverse Reaction (Verified 03/23/25 13:33) cough oxycodone (Oxycodone) Adverse Reaction (Verified 03/23/25 13:33) Itching oxycodone HCl (From Percocet) Adverse Reaction (Verified 03/23/25 13:33) Itching Penicillins Adverse Reaction (Verified 03/23/25 13:33) heart palpitations prochlorperazine edisylate (From Compazine) Adverse Reaction (Verified 03/23/25 13:33) Low blood pressure prochlorperazine maleate (From Compazine) Adverse Reaction (Verified 03/23/25 13:33) Low blood pressure tramadol HCl (From Ultram) Adverse Reaction (Verified 03/23/25 13:33) Itching Medications ???Medication ???Instructions ???Recorded ???Confirmed ???Type bupropion HCl 150 mg 24 hr tablet, 150 mg PO DAILY DEPRESSION 11/1403/23/25 History extended release montelukast (more content not included)... Normal [facility] INR (POC)on 02-10-2025 INR Coag (PPP) [Relative time] 3.6 {INR} High 0.8 - 1.2 [facility] Internal Quality Check Acceptable [facility] Interpretation and review of laboratory results Abnormal [facility] Location:[facility], [address] [place], [address] [facility] POINT OF CARE [facility] INR (POC)on 01-15-2025 INR Coag (PPP) [Relative time] 1.6 {INR} High 0.8 - 1.2 [facility] Internal Quality Check Acceptable [facility] Interpretation and review of laboratory results Abnormal [facility] Location:[place] [address] [place], [place], [id number] [place] [address] POINT OF CARE [facility] PT panel Coag (PPP)on 2024 INR Coag (Bld) [Relative time] 0.3 {INR} [facility] Cardiology Visit Reporton Cardiology Visit Report [facility] [address] [place] [address] OFFICE VISIT Date of Service: 11/12/24 MR#: [id number] Acct: [id number] Name: ELZA CHU Rep #: [id number] : 1945 Provider: CHARLENE moyer Age/Sex: 78/F [place] [facility] Status: Signed HPI HPI History of Present Illness Details: ELZA CHU, is a 78 year old white female who presents to the office today for outpatient cardiovascular follow-up with a history of aortic valve replacement in 2003 with a redo replacement in September 2013 with a mechanical valve, PAF, dilated thoracic aortic root, hyperlipidemia, hypertension, diastolic congestive heart failure, bronchiectasis, and asthma. She seen at [facility] in October 2022 for non-ST elevated myocardial infarction. Cardiac work-up was reviewed and patient declined. Medical therapy was pursued. She presented to [facility] ER on 11/13/2022 for general illness. Her troponin was negative. She has been referred to palliative care by pulmonology team in December 2022. She acknowledges monthly chest pain. This last for minutes and described as sharp. She notes this at rest and with stress. She acknowledges bilateral lower extremity edema and palpitations. She denies claudication. She acknowledges shortness of breath at rest and shortness breath with activity such as getting ready in the morning. She denies orthopnea. She acknowledges lightheadedness, dizziness, near-syncope, and syncope. She denies fatigue. Intake Vital Signs 07/08/24 14:32 09/24/24 08:39 11/12/24 11:44 Height 5 ft 5 ft 5 ft Weight: 115 lb 112 lb 111 lb BMI 22.4 21.9 21.7 BP 97/66 91/60 102/68 Blood Pressure Location Lt brachial Rt brachial Lt brachial Position Sitting Sitting Sitting Respiration 18 20 H 16 Pulse 106 H 52 L 105 H Pulse Source NIBP Monitor NIBP Temp 97.4 F L Temperature Source Temporal Artery Pulse Oximetry (%) 94 96 Oxygen Delivery Method nasal canula nasal canula nasal canula Oxygen Flow Rate (L/min) 3 3 3 Comment NC intermittent with inhalation Intake Visit Reasons: 3 M Field Staff Manager Required: No Accompanied by: Is patient in pain?: No Allergies risperidone Allergy (Severe, Verified 11/12/24 11:49) Confusion Sulfa (Sulfonamide Antibiotics) Allergy (Verified 11/12/24 11:49) Swelling celecoxib (From Celebrex) Adverse Reaction (Severe, Verified 11/12/24 11:49) Swelling dextromethorphan (From Delsym) Adverse Reaction (Severe, Verified 11/12/24 11:49) hallucination adhesive Adverse Reaction (Verified 11/12/24 11:49) blisters codeine Adverse Reaction (Verified 11/12/24 11:49) Itching levofloxacin (From Levaquin) Adverse Reaction (Verified 11/12/24 11:49) pain in legs and swelling lisinopril Adverse Reaction (Verified 11/12/24 11:49) cough oxycodone (Oxycodone) Adverse Reaction (Verified 11/12/24 11:49) Itching oxycodone HCl (From Percocet) Adverse Reaction (Verified 11/12/24 11:49) Itching Penicillins Adverse Reaction (Verified 11/12/24 11:49) heart palpitations prochlorperazine edisylate (From Compazine) Adverse Reaction (Verified 11/12/24 11:49) Low blood pressure prochlorperazine maleate (From Compazine) Adverse Reaction (Verified 11/12/24 11:49) Low blood pressure tramadol HCl (From [employer]) Adverse Reaction (Verified 11/12/24 11:49) Itching Medications ???Medication ???Instructions ???Recorded ???Confirmed ???Type bupropion HCl 150 mg 24 hr tablet, 150 mg PO DAILY DEPRESSION 11/1411/12/24 History extended release montelukast 10 mg tablet 10 mg PO QHS ALLERGIES 05/03/17 History potassium chloride 20 mEq 20 meq PO DAILY SUPPLEMENT 7 11/12/24 History tablet,extended release(part/cryst) albuterol sulfate 2.5 mg/3 mL 2.5 mg (3 mL) inhalation Q4H PRN 1 11/12/24 Rx (0.083 %) solution for nebulization #25 vials nitroglycerin 0.4 mg sublingual 0.4 mg sublingual Q5M PRN 11/03/22 11/12/24 Rx tablet Cardiac/Chest Pain 30 days #30 tab s ipratropium bromide 21 mcg (0.03 2 spray intranasal BID #30 mL 05/3011/12/24 Rx %) nasal spray paroxetine HCl 30 mg tablet 30 mg PO DAILY 08/06/23 11/12/24 H istory amiodarone 200 mg tablet 100 mg (1/2 x 200 mg) PO DAILY #45 09/25/23 11/12/24 Rx tabs amlodipine 2.5 mg tablet 2.5 mg PO DAILY #90 tabs 11/29/23 11/12/24 Rx metoprolol succinate 100 mg 100 mg PO DAILY 01/24/24 11/12/24 History tablet,extended release 24 hr albuterol sulfate 90 mcg/actuation 2 puff inhalation Q6H PRN 11/12/24 Rx aerosol inhaler shortness of breath or wheezing #8.5 grams loratadine 10 mg tablet 10 mg PO DAILY #90 tabs 06/02/24 0 11/12/24 Rx acetaminophen 500 mg tablet 500 mg PO Q4H PRN pain 06/14/24 History as (more content not included)... Normal [facility] Pulmonary Visit Reporton Pulmonary Visit Report [facility] [address] [place] [address] OFFICE VISIT Date of Service: 09/24/24 MR#: [id number] Acct: [id number] Name: ELZA CHU Rep #: [id number] : 1945 Provider: CHARLENE Adame Age/Sex: 78/F [place] [facility] Status: Signed Assessment and Plan Assessment and Plan (1) Bronchiectasis: Status: Chronic Qualifiers: Bronchiectasis type: uncomplicated Qualified Code(s): J47.9 - Bronchiectasis, uncomplicated Plan: Stable, no signs of exacerbation of bronchiectasis today. She is not currently requiring maintenance medications. No additional testing at this time. Continue to encourage the use of Acapella device. Contact the office with any signs of new or worsening symptoms. Follow-up in the office in 6 months. (2) Hypoxemia: Status: Chronic Comment: Wears 2 L/min with sleep Plan: The patient is using and benefiting from oxygen. Continue to utilize to maintain a saturation of 89-92%. (3) Lewy body dementia: Status: Chronic Qualifiers: Dementia behavioral or psychological symptom: with anxiety Dementia severity: severe Qualified Code(s): G31.83 - Neurocognitive disorder with Lewy bodies; F02.C4 - Dementia in other diseases classified elsewhere, severe, with anxiety Plan: Complicates exam, plan, care and prognosis. The patient is currently being treated by hospice. HPI 6 M FU Chief Complaint: cough HPI Comments Details: This patient presents to the office today for follow-up of her bronchiectasis complicated by stage of 7 Lewy body dementia. She is in a wheelchair and currently on supplemental oxygen. She is accompanied today by her . She was hospitalized at [facility] in May for pneumonia. If you recall, she was treated back in February for exacerbation of bronchiectasis with a course of doxycycline. She has not required any recent antibiotics or steroids for breathing problems. She has not had any recent visits to the ED or urgent care for respiratory illness. She is not currently on any maintenance inhalers. She is compliant with Singulair. She reports using her pickle multiple times daily. She is not currently using Mucinex. She is compliant with supplemental oxygen. She is currently using 4 L/min continuous while at home. She utilizes 3 L/min continuous when away from home. She is currently using albuterol 2-3 times per day. She occasionally uses the albuterol in the nebulizer. She does have shortness of breath with exertion. She has a cough that is productive of thick yellow colored sputum. She denies any wheezing or palpitations. She reports intermittent chest and chest pain. She also denies any fever, chills or body aches. Intake Vital Signs 03/20/24 09:04 06/15/24 10:38 09/24/24 08:39 Height 5 ft 5 ft 5 ft Weight: 112 lb BMI 21.9 BP 91/60 Blood Pressure Location Rt brachial Position Sitting Respiration 20 H Pulse 52 L Pulse Source Monitor Temp 97.4 F L Temperature Source Temporal Artery Pulse Oximetry (%) 96 Oxygen Delivery Method nasal canula Oxygen Flow Rate (L/min) 3 Intake Visit Reasons: 6 M FU Chief Complaint: chest pain Field Staff Manager Required: No DME Vendor: [email or web address] Accompanied by: Allergies risperidone Allergy (Severe, Verified 07/08/24 14:33) Confusion Sulfa (Sulfonamide Antibiotics) Allergy (Verified 07/08/24 14:33) Swelling celecoxib (From Celebrex) Adverse Reaction (Severe, Verified 07/08/24 14:33) Swelling dextromethorphan (From Delsym) Adverse Reaction (Severe, Verified 07/08/24 14:33) hallucination adhesive Adverse Reaction (Verified 07/08/24 14:33) blisters codeine Adverse Reaction (Verified 07/08/24 14:33) Itching levofloxacin (From Levaquin) Adverse Reaction (Verified 07/08/24 14:33) pain in legs and swelling lisinopril Adverse Reaction (Verified 07/08/24 14:33) cough oxycodone (Oxycodone) Adverse Reaction (Verified 07/08/24 14:33) Itching oxycodone HCl (From Percocet) Adverse Reaction (Verified 07/08/24 14:33) Itching Penicillins Adverse Reaction (Verified 07/08/24 14:33) heart palpitations prochlorperazine edisylate (From Compazine) Adverse Reaction (Verified 07/08/24 14:33) Low blood pressure prochlorperazine maleate (From Compazine) Adverse Reaction (Verified 07/08/24 14:33) Low blood pressure tramadol HCl (From Ultram) Adverse Reaction (Verified 07/08/24 14:33) Itching Medications ???Medication ???Instructions ???Recorded ???Confirmed ???Type bupropion HCl 150 mg 24 hr tablet, 150 mg PO DAILY DEPRESSION 11/1407/08/24 History extended release montelukast 10 mg tablet 10 mg PO QHS ALLERGIES 05/03/17 History potassium chloride 20 mEq 20 meq PO DAILY SUPPLEMENT 7 07/08/24 History tablet,extended release(part/dulce (more content not included)... Normal [facility] Cardiology Visit Reporton Cardiology Visit Report [facility] [address] [place] [address] OFFICE VISIT Date of Service: 07/08/24 MR#: [id number] Acct: [id number] Name: ELZA CHU Rep #: [id number] : 1945 Provider: CHARLENE moyer Age/Sex: 78/F [place] [facility] Status: Signed HPI HPI History of Present Illness Details: ELZA CHU, is a 78 year old white female who presents to the office today for outpatient cardiovascular follow-up with a history of aortic valve replacement in 2003 with a redo replacement in September 2013 with a mechanical valve, PAF, dilated thoracic aortic root, hyperlipidemia, hypertension, diastolic congestive heart failure, bronchiectasis, and asthma. She seen at [facility] in October 2022 for non-ST elevated myocardial infarction. Cardiac work-up was reviewed and patient declined. Medical therapy was pursued. She presented to [facility] ER on 11/13/2022 for general illness. Her troponin was negative. She has been referred to palliative care by pulmonology team in December 2022. She acknowledges monthly chest pain. This last for minutes and described as sharp. She notes this at rest and with stress. She acknowledges bilateral lower extremity edema and palpitations. She denies claudication. She acknowledges shortness of breath at rest and shortness breath with activity such as getting ready in the morning. She denies orthopnea. She acknowledges lightheadedness, dizziness, near-syncope, and syncope. She denies fatigue. Intake Vital Signs 01/24/24 14:09 06/17/24 13:03 07/08/24 14:32 Height 5 ft 5 ft 5 ft Weight: 115 lb BMI 22.4 BP 97/66 Blood Pressure Location Lt brachial Position Sitting Respiration 18 Pulse 106 H Pulse Source NIBP Pulse Oximetry (%) 94 Oxygen Delivery Method nasal canula Oxygen Flow Rate (L/min) 3 Comment NC intermittent with inhalation Intake Visit Reasons: 6 M FU Field Staff Manager Required: No Accompanied by: Is patient in pain?: Yes (chronic; back; unchanged) Allergies risperidone Allergy (Severe, Verified 07/08/24 14:33) Confusion Sulfa (Sulfonamide Antibiotics) Allergy (Verified 07/08/24 14:33) Swelling celecoxib (From Celebrex) Adverse Reaction (Severe, Verified 07/08/24 14:33) Swelling dextromethorphan (From Delsym) Adverse Reaction (Severe, Verified 07/08/24 14:33) hallucination adhesive Adverse Reaction (Verified 07/08/24 14:33) blisters codeine Adverse Reaction (Verified 07/08/24 14:33) Itching levofloxacin (From Levaquin) Adverse Reaction (Verified 07/08/24 14:33) pain in legs and swelling lisinopril Adverse Reaction (Verified 07/08/24 14:33) cough oxycodone (Oxycodone) Adverse Reaction (Verified 07/08/24 14:33) Itching oxycodone HCl (From Percocet) Adverse Reaction (Verified 07/08/24 14:33) Itching Penicillins Adverse Reaction (Verified 07/08/24 14:33) heart palpitations prochlorperazine edisylate (From Compazine) Adverse Reaction (Verified 07/08/24 14:33) Low blood pressure prochlorperazine maleate (From Compazine) Adverse Reaction (Verified 07/08/24 14:33) Low blood pressure tramadol HCl (From [employer]) Adverse Reaction (Verified 07/08/24 14:33) Itching Medications ???Medication ???Instructions ???Recorded ???Confirmed ???Type bupropion HCl 150 mg 24 hr tablet, 150 mg PO DAILY DEPRESSION 11/15/15 07/08/24 History extended release montelukast 10 mg tablet 10 mg PO QHS ALLERGIES 05/03/17 07/08/24 History potassium chloride 20 mEq 20 meq PO DAILY SUPPLEMENT 05/03/17 07/08/24 History tablet,extended release(part/cryst) furosemide 40 mg tablet 40 mg PO DAILY WATER PILL ##0 12/06/17 07/08/24 Rx albuterol sulfate 2.5 mg/3 mL 2.5 mg (3 mL) inhalation Q4H PRN 05/21/21 07/08/24 Rx (0.083 %) solution for nebulization #25 vials ferrous sulfate 325 mg (65 mg 325 mg PO BID Check with primary 11/29/21 07/08/24 History iron) tablet doctor nitroglycerin 0.4 mg sublingual 0.4 mg sublingual Q5M PRN 11/03/22 07/08/24 Rx tablet Cardiac/Chest Pain 30 days #30 tabs diazepam 2 mg tablet See Rx Instructions PO .COMPLEX 06/11/23 07/08/24 History ipratropium bromide 21 mcg (0.03 2 spray intranasal BID #30 mL 06/11/23 07/08/24 Rx %) nasal spray paroxetine HCl 30 mg tablet 30 mg PO DAILY 08/06/23 07/08/24 History warfarin 2.5 mg tablet 5 mg PO .sunday Check with 08/06/23 07/08/24 History primary doctor warfarin 3 mg tablet 3 mg PO .mo,tu,th,fr,sat,sun blood 08/06/23 07/08/24 History thinner ezetimibe 10 mg tablet See Rx Instructions .Route 08/27/23 07/08/24 Rx .COMPLEX #90 TABLETS pravastatin 80 mg tablet See Rx Instructions .Route 08/27/23 07/08/24 Rx .COMPLEX #90 tabs amiodarone 200 mg tablet 100 mg (1/2 x 200 mg) PO DAILY #45 09/25/23 07/08/24 Rx tabs amlodipine 2.5 mg table (more content not included)... Normal [facility] Prothrombin Time w/INRon INR Normal [facility] Comment on above: Result Comment: Canc elled via OM: Order cancelled - Patient discharged Performed By: #### L 500.4050, L100.0100, L300.3900 #### [facility] [address] [place], [address] PROTIME Normal 11.7-14.9 [facility] Comment on above: Result Comment: Canc elled via OM: Order cancelled - Patient discharged Performed By: #### L 500.4050, L100.0100, L300.3900 #### [facility] [address] [place], [address] Culture, Blood (WB)on 2023 CUB Blood cultures x2, from two different sites No growth in 5 days. Normal [facility] Comment on above: Performed By: #### L 500.4050, L100.0100, L300.3900 #### [facility] [address] [place], [address] Prothrombin Time w/INRon INR Normal [facility] Comment on above: Result Comment: Canc elled via OM: Order cancelled - Patient discharged Performed By: #### L 503.6005 #### [facility] [address] [place], [address] PROTIME Normal 11.7-14.9 [facility] Comment on above: Result Comment: Canc elled via OM: Order cancelled - Patient discharged Performed By: #### L 503.6005 #### [facility] [address] [place], [address] Prothrombin Time w/INRon INR Normal [facility] Comment on above: Result Comment: Canc elled via OM: Order cancelled - Patient discharged Performed By: #### L 300.3900 ####[facility] [address] [place], [address] PROTIME Normal 11.7-14.9 [facility] Comment on above: Result Comment: Canc elled via OM: Order cancelled - Patient discharged Performed By: #### L 300.3900 ####[facility] [address] [place], [address] Basic Metabolic Profile (BMP )on 06-18-2024 BUN/CRE 42.6 RATIO High 05-18 [facility] Comment on above: Performed By: #### L 500.4050, L100.0100, L300.3900 #### [facility] [address] [place], [address] CA,Total 9.6 mg/dL Normal 8.5-10.1 [facility] Comment on above: Performed By: #### L 500.4050, L100.0100, L300.3900 #### [facility] [address] [place], [address] Chloride [Moles/Vol] 103 mmol/L Normal 98-107 [facility] Comment on above: Performed By: #### L 500.4050, L100.0100, L300.3900 #### [facility] [address] [place], [address] CO2 [Moles/Vol] 38.0 mmol/L High 21.0-32.0 [facility] Comment on above: Performed By: #### L 500.4050, L100.0100, L300.3900 #### [facility] [address] [place], [address] Creatinine [Mass/Vol] 0.82 mg/dL Normal 0.55-1.02 [facility] Comment on above: Result Comment: The validity of the calculated GFR GFRAA in patients over 70 years has not been determined. Clinical correlation is essential. Performed By: #### L 500.4050, L100.0100, L300.3900 #### [facility] [address] [place], [address] ECRCL 39.96 ml/min Normal [facility] Comment on above: Performed By: #### L 500.4050, L100.0100, L300.3900 #### [facility] [address] [place], [address] EST GFR - AA 86 mL/min Normal >60 [facility] Comment on above: Result Comment: Afri can Beninese GFR Calc Performed By: #### L 500.4050, L100.0100, L300.3900 #### [facility] [address] [place], [address] GAP 0 Low 5-15 [facility] Comment on above: Performed By: #### L 500.4050, L100.0100, L300.3900 #### [facility] [address] [place], [address] GFR/1.73 sq M.predicted among non-blacks MDRD (S/P/Bld) [Vol rate/Area] 71 mL/min/{1.73_m2} Normal >60 [facility] Comment on above: Result Comment: Non- GFR Calc Performed By: #### L 500.4050, L100.0100, L300.3900 #### [facility] [address] [place], [address] Glucose [Mass/Vol] 129 mg/dL High 74-106 [facility] Comment on above: Result Comment: Fast ing Glucose result greater than or equal to 126 mg/dL suggests DIABETES MELLITUS per A.D.A. criteria. Performed By: #### L 500.4050, L100.0100, L300.3900 #### [facility] [address] [place], [address] Potassium [Moles/Vol] 4.2 mmol/L Normal 3.5-5.1 [facility] Comment on above: Performed By: #### L 500.4050, L100.0100, L300.3900 #### [facility] [address] [place], [address] Sodium [Moles/Vol] 141 mmol/L Normal 136-145 [facility] Comment on above: Performed By: #### L 500.4050, L100.0100, L300.3900 #### [facility] [address] [place], [address] Urea nitrogen [Mass/Vol] 35 mg/dL High 7-18 [facility] Comment on above: Performed By: #### L 500.4050, L100.0100, L300.3900 #### [facility] [address] [place], [address] CBC W/Diff, Automatedon 11-2 0-4 Absolute Lymph 0.31 X10 3/uL Low 0.83-4.51 [facility] Comment on above: Performed By: #### L 500.4050, L100.0100, L300.3900 #### [facility] [address] [place], [address] Absolute Neut 11.6 X10 3/uL High 2.0-7.7 [facility] Comment on above: Performed By: #### L 500.4050, L100.0100, L300.3900 #### [facility] [address] [place], [address] Basophils/100 WBC (Bld) 0.1 % Normal 0-1 [facility] Comment on above: Performed By: #### L 500.4050, L100.0100, L300.3900 #### [facility] [address] [place], [address] Eosinophils/100 WBC (Bld) 0.0 % Normal 0-5 [facility] Comment on above: Performed By: #### L 500.4050, L100.0100, L300.3900 #### [facility] [address] [place], [address] Erythrocyte distribution width (RBC) [Ratio] 13.7 % Normal 11.6-14.6 [facility] Comment on above: Performed By: #### L 500.4050, L100.0100, L300.3900 #### [facility] [address] [place], [address] Hematocrit (Bld) [Volume fraction] 34.4 % Low 37-47 [facility] Comment on above: Performed By: #### L 500.4050, L100.0100, L300.3900 #### [facility] [address] [place], [address] Hemoglobin (Bld) [Mass/Vol] 10.1 g/dL Low 12.0-15.0 [facility] Comment on above: Performed By: #### L 500.4050, L100.0100, L300.3900 #### [facility] [address] [place], [address] IG% 0.800 Normal 0.0-0.9 [facility] Comment on above: Result Comment: IG% - Immature Granulocytes (promyelocytes, myelocytes and metamyelocytes) > 1% indicates that a LEFT SHIFT is Present. Performed By: #### L 500.4050, L100.0100, L300.3900 #### [facility] [address] [place], [address] Lymphocytes/100 WBC (Bld) 2.5 % Low 19-41 [facility] Comment on above: Performed By: #### L 500.4050, L100.0100, L300.3900 #### [facility] [address] [place], [address] MCH (RBC) [Entitic mass] 26.2 pg Low 27.0-32.0 [facility] Comment on above: Performed By: #### L 500.4050, L100.0100, L300.3900 #### [facility] [address] [place], [address] MCHC (RBC) [Mass/Vol] 29.4 g/dL Low 32-36 [facility] Comment on above: Performed By: #### L 500.4050, L100.0100, L300.3900 #### [facility] [address] [place], [address] MCV (RBC) [Entitic vol] 89.1 fL Normal 81-99 [facility] Comment on above: Performed By: #### L 500.4050, L100.0100, L300.3900 #### [facility] [address] [place], [address] Monocytes/100 WBC (Bld) 3.0 % Normal 0-10 [facility] Comment on above: Performed By: #### L 500.4050, L100.0100, L300.3900 #### [facility] [address] [place], [address] Neutrophils/100 WBC (Bld) 93.6 % High 47-70 [facility] Comment on above: Performed By: #### L 500.4050, L100.0100, L300.3900 #### [facility] [address] [place], [address] Nucleated RBC (Bld) [#/Vol] 0 10*3/uL Normal 0-5 [facility] Comment on above: Performed By: #### L 500.4050, L100.0100, L300.3900 #### [facility] [address] [place], [address] Platelet mean volume (Bld) [Entitic vol] 10.5 fL Normal 6.2-12.0 [facility] Comment on above: Performed By: #### L 500.4050, L100.0100, L300.3900 #### [facility] [address] [place], [address] Platelets (Bld) [#/Vol] 332 10*3/uL Normal 150-450 [facility] Comment on above: Performed By: #### L 500.4050, L100.0100, L300.3900 #### [facility] [address] [place], [address] RBC (Bld) [#/Vol] 3.86 10*6/uL Low 4.2-5.4 [facility] Comment on above: Performed By: #### L 500.4050, L100.0100, L300.3900 #### [facility] [address] [place], [address] RDW SD 44.9 fl High 35.1-43.9 [facility] Comment on above: Performed By: #### L 500.4050, L100.0100, L300.3900 #### [facility] [address] [place], [address] WBC (Bld) [#/Vol] 12.4 10*3/uL High 4.4-11.0 [facility] Comment on above: Performed By: #### L 500.4050, L100.0100, L300.3900 #### [facility] [address] [place], [address] Discharge Instructionon 05-31 Discharge Instruction [facility] Medical Records Department [address] [place] [address] Instructions for Home/Discharge Instructions 06/18/24 1105 MR#: [id number] Acct: [id number] Name: ELZA CHU Rep #: [id number] : 1945 78 From: Harry Pate MD PCP: Dr. Kolby Kim MD Status:ADM IN Discharge Instructions Diet Discharge Diet: 2000 mg Sodium Diet Dressing / Incision Call your doctor if you observe: - (Home with home hospice care. Call hospice nurse) Follow Up Care Test Results: Test results from this visit will be discussed in further detail at your follow-up appointment, if applicable. Discharge Plan Admission Admit Date/Time: 06/14/24 19:09 Primary Reason for Your Visit: Acute on chronic heart failure, multifocal pneumonia. Attending Provider: Harry Pate Primary Care Provider: Kolby Kim Consulting Providers: Faviola Perry; Ryan Canseco; Ryan Seaman; Mariana Garcia; Talia Chaudhry; Janell Truong; Suzanne Bennett FLUE GAS ANALYST; Huma Allen Discharge Orders/Prescriptions Prescriptions: New guaifenesin [Mucus Relief ER] 1,200 mg Tablet Extended Release 12hr 1,200 mg PO BID 7 Days Qty: 14 0RF furosemide 40 mg Tablet 40 mg PO BIDLX 30 Days Qty: 60 0RF cefdinir 300 mg capsule 300 mg PO BID 3 Days Qty: 6 0RF Continued ferrous sulfate 325 mg (65 mg iron) tablet 325 mg PO BID Patient Comments: TAKE 1 TABLET BY MOUTH TWICE DAILY WITH MEALS donepezil 5 mg tablet 5 mg PO QDAY metoprolol succinate 100 mg tablet extended release 24 hr 100 mg PO DAILY diazepam 2 mg tablet See Rx Instructions PO .COMPLEX Rx Instructions: Take 1mg (1/2 tab) in the AM and 2mg (1tab) in the PM orally; ipratropium bromide 21 mcg (0.03 %) spray,non-aerosol 2 spray intranasal BID Qty: 30 3RF Rx Instructions: administer into each nostril warfarin 3 mg tablet 3 mg PO .mo,,,fr,sat,sun Patient Comments: 06/16/[address] Kim office: 5mg on Sunday and 3mg all other days of the week. paroxetine HCl 30 mg tablet 30 mg PO DAILY albuterol sulfate 90 mcg/actuation HFA aerosol inhaler 2 puff inhalation Q6H PRN (Reason: shortness of breath or wheezing) Qty: 8.5 11RF Rx Instructions: administer with spacer bupropion HCl 150 MG tablet extended release 24 hr 150 mg PO DAILY Patient Comments: depression potassium chloride 20 MEQ tablet 20 meq PO DAILY montelukast 10 MG tablet 10 mg PO QHS furosemide 40 MG tablet 40 mg PO DAILY Qty: 0 0RF albuterol sulfate 2.5 MG/3 ML solution for nebulization 2.5 mg inhalation Q4H PRN Qty: 25 0RF Rx Instructions: Use q4 hours and PRN for wheezing warfarin 2.5 mg tablet 5 mg PO .sunday Patient Comments: 06/16/[address] Kim office: 5mg on Sunday and 3mg all other days of the week. nitroglycerin 0.4 mg Tablet, Sublingual 0.4 mg sublingual Q5M PRN (Reason: Cardiac/Chest Pain) 30 Days Qty: 30 0RF ergocalciferol (vitamin D2) 1,250 mcg (50,000 unit) capsule 1,250 mcg PO .every other week acetaminophen 500 mg tablet 500 mg PO Q4H PRN (Reason: pain) aspirin 81 mg Tablet,Delayed Release (Dr/Ec) 162 mg PO BREAKFAST pravastatin 80 mg tablet See Rx Instructions .ROUTE .COMPLEX Qty: 90 3RF Dose Instruction: TAKE 1 TABLET BY MOUTH AT BEDTIME FOR CHOLESTEROL Rx Instructions: TAKE 1 TABLET BY MOUTH AT BEDTIME FOR CHOLESTEROL ezetimibe 10 mg tablet See Rx Instructions .ROUTE .COMPLEX Qty: 90 3RF Dose Instruction: TAKE 1 TABLET BY MOUTH DAILY Rx Instructions: TAKE 1 TABLET BY MOUTH DAILY amiodarone 200 mg tablet 100 mg PO DAILY Qty: 45 3RF amlodipine 2.5 mg tablet 2.5 mg PO DAILY Qty: 90 3RF loratadine 10 mg tablet 10 mg PO DAILY Qty: 90 3RF Changed pantoprazole 40 MG tablet 40 mg PO DAILY Qty: 7 0RF Patient Comments: stomach Referrals / Follow Up: Kolby Kim MD [Primary Care Provider] - Within 1 Week Disposition Disposition (needs filled in before D/C Order can be placed): Hospice in Home 06/18/24 1246 Harry Pate MD CC: FLUE GAS ANALYST-Roseann Truong; FLUE GAS ANALYST-C Suzanne Bennett; Dr. Faviola Perry MD; Dr. Ryan Canseco MD; Dr. Ryan Seaman DO; Dr. Talia Chaudhry MD; Dr. Mariana Garcia MD; Dr. Kolby Kim MD; NATALIE Will Signed Normal [facility] Prothrombin Time w/INRon INR Coag (PPP) [Relative time] 3.0 {INR} [facility] Comment on above: Performed By: #### L 500.4050, L100.0100, L300.3900 #### [facility] [address] [place], [address] PT Coag (PPP) [Time] 31.3 s High 11.7-14.9 [facility] Comment on above: Performed By: #### L 500.4050, L100.0100, L300.3900 #### [facility] [address] [place], [address] Respiratory Cultureon 2023 RESPC Pasteurella multocid a Amount Growth 3+ Escherichia coli Amount Growth 1+ Pseudomonas aeruginosa Amount Growth 1+ Pasteurella multocida: REACTION ceFAZolin Islt SETH <=4 S Imipenem Islt SETH <=0.25 S Escherichia coli: REACTION Ampicillin Islt SETH >=32 R Ampicillin+Sulbac Islt SETH 4 S ceFAZolin Islt SETH <=4 S Cefepime Islt SETH <=0.12 S cefTRIAXone Islt SETH <=0.25 S Ciprofloxacin Islt SETH <=0.25 S B-Lactamase Extended Susc Islt NEG Gentamicin Islt SETH >=16 R Imipenem Islt SETH <=0.25 S levoFLOXacin Islt SETH 0.5 S Pip+Tazo Islt SETH <=4 S Tobramycin Islt SETH 8 R TMP SMX Islt SETH >=320 R Pseudomonas aeruginosa: REACTION Aztreonam Islt KB 36 S Pseudomonas aeruginosa: REACTION Amikacin Islt SETH 4 S Ciprofloxacin Islt SETH 1 I Imipenem Islt SETH <=0.25 S levoFLOXacin Islt SETH 2 S Meropenem Islt SETH <=0.25 S Pip+Tazo Islt SETH <=4 S Tobramycin Islt SETH <=1 S Normal [facility] Comment on above: Performed By: #### L 500.4050, L100.0100, L300.3900 #### [facility] [address] [place], [address] Basic Metabolic Profile (BMP )on 06-17-2024 BUN/CRE 36.6 RATIO High 05-18 [facility] Comment on above: Performed By: #### L 100.0100, L500.2500, L300.3900 ####[facility] [address] [place], [address] CA,Total 9.7 mg/dL Normal 8.5-10.1 [facility] Comment on above: Performed By: #### L 100.0100, L500.2500, L300.3900 ####[facility] [address] [place], [address] Chloride [Moles/Vol] 102 mmol/L Normal 98-107 [facility] Comment on above: Performed By: #### L 100.0100, L500.2500, L300.3900 ####[facility] [address] [place], [address] CO2 [Moles/Vol] 37.0 mmol/L High 21.0-32.0 [facility] Comment on above: Performed By: #### L 100.0100, L500.2500, L300.3900 ####[facility] [address] [place], [address] Creatinine [Mass/Vol] 0.82 mg/dL Normal 0.55-1.02 [facility] Comment on above: Result Comment: The validity of the calculated GFR GFRAA in patients over 70 years has not been determined. Clinical correlation is essential. Performed By: #### L 100.0100, L500.2500, L300.3900 ####[facility] [address] [place], [address] ECRCL 39.96 ml/min Normal [facility] Comment on above: Performed By: #### L 100.0100, L500.2500, L300.3900 ####[facility] [address] [place], [address] EST GFR - AA 86 mL/min Normal >60 [facility] Comment on above: Result Comment: Afri can Beninese GFR Calc Performed By: #### L 100.0100, L500.2500, L300.3900 ####[facility] [address] [place], [address] GAP 2 Low 5-15 [facility] Comment on above: Performed By: #### L 100.0100, L500.2500, L300.3900 ####[facility] [address] [place], [address] GFR/1.73 sq M.predicted among non-blacks MDRD (S/P/Bld) [Vol rate/Area] 71 mL/min/{1.73_m2} Normal >60 [facility] Comment on above: Result Comment: Non- GFR Calc Performed By: #### L 100.0100, L500.2500, L300.3900 ####[facility] [address] [place], [address] Glucose [Mass/Vol] 170 mg/dL High 74-106 [facility] Comment on above: Result Comment: Fast ing Glucose result greater than or equal to 126 mg/dL suggests DIABETES MELLITUS per A.D.A. criteria. Performed By: #### L 100.0100, L500.2500, L300.3900 ####[facility] [address] [place], [address] Potassium [Moles/Vol] 4.3 mmol/L Normal 3.5-5.1 [facility] Comment on above: Performed By: #### L 100.0100, L500.2500, L300.3900 ####[facility] [address] [place], [address] Sodium [Moles/Vol] 141 mmol/L Normal 136-145 [facility] Comment on above: Performed By: #### L 100.0100, L500.2500, L300.3900 ####[facility] [address] [place], [address] Urea nitrogen [Mass/Vol] 30 mg/dL High 7-18 [facility] Comment on above: Performed By: #### L 100.0100, L500.2500, L300.3900 ####[facility] [address] [place], [address] CBC W/Diff, Automatedon 11 Absolute Lymph 0.33 X10 3/uL Low 0.83-4.51 [facility] Comment on above: Performed By: #### L 100.0100, L500.2500, L300.3900 ####[facility] [address] [place], [address] Absolute Neut 14.6 X10 3/uL High 2.0-7.7 [facility] Comment on above: Performed By: #### L 100.0100, L500.2500, L300.3900 ####[facility] [address] [place], [address] Basophils/100 WBC (Bld) 0.1 % Normal 0-1 [facility] Comment on above: Performed By: #### L 100.0100, L500.2500, L300.3900 ####[facility] [address] [place], [address] Eosinophils/100 WBC (Bld) 0.0 % Normal 0-5 [facility] Comment on above: Performed By: #### L 100.0100, L500.2500, L300.3900 ####[facility] [address] [place], [address] Erythrocyte distribution width (RBC) [Ratio] 13.7 % Normal 11.6-14.6 [facility] Comment on above: Performed By: #### L 100.0100, L500.2500, L300.3900 ####[facility] [address] [place], [address] Hematocrit (Bld) [Volume fraction] 36.4 % Low 37-47 [facility] Comment on above: Performed By: #### L 100.0100, L500.2500, L300.3900 ####[facility] [address] [place], [address] Hemoglobin (Bld) [Mass/Vol] 10.5 g/dL Low 12.0-15.0 [facility] Comment on above: Performed By: #### L 100.0100, L500.2500, L300.3900 ####[facility] [address] [place], [address] IG% 0.700 Normal 0.0-0.9 [facility] Comment on above: Result Comment: IG% - Immature Granulocytes (promyelocytes, myelocytes and metamyelocytes) > 1% indicates that a LEFT SHIFT is Present. Performed By: #### L 100.0100, L500.2500, L300.3900 ####[facility] [address] [place], [address] Lymphocytes/100 WBC (Bld) 2.1 % Low 19-41 [facility] Comment on above: Performed By: #### L 100.0100, L500.2500, L300.3900 ####[facility] [address] [place], [address] MCH (RBC) [Entitic mass] 25.9 pg Low 27.0-32.0 [facility] Comment on above: Performed By: #### L 100.0100, L500.2500, L300.3900 ####[facility] [address] [place], [address] MCHC (RBC) [Mass/Vol] 28.8 g/dL Low 32-36 [facility] Comment on above: Performed By: #### L 100.0100, L500.2500, L300.3900 ####[facility] [address] [place], [address] MCV (RBC) [Entitic vol] 89.7 fL Normal 81-99 [facility] Comment on above: Performed By: #### L 100.0100, L500.2500, L300.3900 ####[facility] [address] [place], [address] Monocytes/100 WBC (Bld) 2.2 % Normal 0-10 [facility] Comment on above: Performed By: #### L 100.0100, L500.2500, L300.3900 ####[facility] [address] [place], [address] Neutrophils/100 WBC (Bld) 94.9 % High 47-70 [facility] Comment on above: Performed By: #### L 100.0100, L500.2500, L300.3900 ####[facility] [address] [place], [address] Nucleated RBC (Bld) [#/Vol] 0 10*3/uL Normal 0-5 [facility] Comment on above: Performed By: #### L 100.0100, L500.2500, L300.3900 ####[facility] [address] [place], [address] Platelet mean volume (Bld) [Entitic vol] 10.4 fL Normal 6.2-12.0 [facility] Comment on above: Performed By: #### L 100.0100, L500.2500, L300.3900 ####[facility] [address] [place], [address] Platelets (Bld) [#/Vol] 334 10*3/uL Normal 150-450 [facility] Comment on above: Performed By: #### L 100.0100, L500.2500, L300.3900 ####[facility] [address] [place], [address] RBC (Bld) [#/Vol] 4.06 10*6/uL Low 4.2-5.4 [facility] Comment on above: Performed By: #### L 100.0100, L500.2500, L300.3900 ####[facility] [address] [place], [address] RDW SD 45.1 fl High 35.1-43.9 [facility] Comment on above: Performed By: #### L 100.0100, L500.2500, L300.3900 ####[facility] [address] [place], [address] WBC (Bld) [#/Vol] 15.4 10*3/uL High 4.4-11.0 [facility] Comment on above: Performed By: #### L 100.0100, L500.2500, L300.3900 ####[facility] [address] [place], [address] Prothrombin Time w/INRon INR Coag (PPP) [Relative time] 3.0 {INR} Normal [facility] Comment on above: Performed By: #### L 100.0100, L500.2500, L300.3900 ####[facility] [address] [place], [address] PT Coag (PPP) [Time] 31.0 s High 11.7-14.9 [facility] Comment on above: Performed By: #### L 100.0100, L500.2500, L300.3900 ####[facility] [address] [place], [address] Basic Metabolic Profile (BMP )on 06-16-2024 BUN/CRE 25.3 RATIO High 10-20 [facility] Comment on above: Performed By: #### L 500.4050, L100.0100, L300.3900 #### [facility] [address] [place], [address] CA,Total 9.3 mg/dL Normal 8.5-10.1 [facility] Comment on above: Performed By: #### L 500.4050, L100.0100, L300.3900 #### [facility] [address] [place], [address] Chloride [Moles/Vol] 100 mmol/L Normal 98-107 [facility] Comment on above: Performed By: #### L 500.4050, L100.0100, L300.3900 #### [facility] [address] [place], [address] CO2 [Moles/Vol] 39.0 mmol/L High 21.0-32.0 [facility] Comment on above: Performed By: #### L 500.4050, L100.0100, L300.3900 #### [facility] [address] [place], [address] Creatinine [Mass/Vol] 0.95 mg/dL Normal 0.55-1.02 [facility] Comment on above: Result Comment: The validity of the calculated GFR GFRAA in patients over 70 years has not been determined. Clinical correlation is essential. Performed By: #### L 500.4050, L100.0100, L300.3900 #### [facility] [address] [place], [address] ECRCL 34.49 ml/min Normal [facility] Comment on above: Performed By: #### L 500.4050, L100.0100, L300.3900 #### [facility] [address] [place], [address] EST GFR - AA 73 mL/min Normal >60 [facility] Comment on above: Result Comment: Afri can Beninese GFR Calc Performed By: #### L 500.4050, L100.0100, L300.3900 #### [facility] [address] [place], [address] GAP 2 Low 5-15 [facility] Comment on above: Performed By: #### L 500.4050, L100.0100, L300.3900 #### [facility] [address] [place], [address] GFR/1.73 sq M.predicted among non-blacks MDRD (S/P/Bld) [Vol rate/Area] 60 mL/min/{1.73_m2} Normal >60 [facility] Comment on above: Result Comment: Non- GFR Calc Performed By: #### L 500.4050, L100.0100, L300.3900 #### [facility] [address] [place], [address] Glucose [Mass/Vol] 208 mg/dL High 74-106 [facility] Comment on above: Result Comment: Gluc ose result greater than or equal to 200 mg/dL suggests DIABETES MELLITUS per A.D.A. criteria. Performed By: #### L 500.4050, L100.0100, L300.3900 #### [facility] [address] [place], [address] Potassium [Moles/Vol] 3.0 mmol/L Low 3.5-5.1 [facility] Comment on above: Performed By: #### L 500.4050, L100.0100, L300.3900 #### [facility] [address] [place], [address] Sodium [Moles/Vol] 141 mmol/L Normal 136-145 [facility] Comment on above: Performed By: #### L 500.4050, L100.0100, L300.3900 #### [facility] [address] [place], [address] Urea nitrogen [Mass/Vol] 24 mg/dL High 7-18 [facility] Comment on above: Performed By: #### L 500.4050, L100.0100, L300.3900 #### [facility] [address] [place], [address] CBC W/Diff, Automatedon 05-30 Absolute Lymph 0.30 X10 3/uL Low 0.83-4.51 [facility] Comment on above: Performed By: #### L 500.4050, L100.0100, L300.3900 #### [facility] [address] [place], [address] Absolute Neut 18.7 X10 3/uL High 2.0-7.7 [facility] Comment on above: Performed By: #### L 500.4050, L100.0100, L300.3900 #### [facility] [address] [place], [address] Basophils/100 WBC (Bld) 0.1 % Normal 0-1 [facility] Comment on above: Performed By: #### L 500.4050, L100.0100, L300.3900 #### [facility] [address] [place], [address] Eosinophils/100 WBC (Bld) 0.0 % Normal 0-5 [facility] Comment on above: Performed By: #### L 500.4050, L100.0100, L300.3900 #### [facility] [address] [place], [address] Erythrocyte distribution width (RBC) [Ratio] 13.8 % Normal 11.6-14.6 [facility] Comment on above: Performed By: #### L 500.4050, L100.0100, L300.3900 #### [facility] [address] [place], [address] Hematocrit (Bld) [Volume fraction] 33.4 % Low 37-47 [facility] Comment on above: Performed By: #### L 500.4050, L100.0100, L300.3900 #### [facility] [address] [place], [address] Hemoglobin (Bld) [Mass/Vol] 9.9 g/dL Low 12.0-15.0 [facility] Comment on above: Performed By: #### L 500.4050, L100.0100, L300.3900 #### [facility] [address] [place], [address] IG% 0.800 Normal 0.0-0.9 [facility] Comment on above: Result Comment: IG% - Immature Granulocytes (promyelocytes, myelocytes and metamyelocytes) > 1% indicates that a LEFT SHIFT is Present. Performed By: #### L 500.4050, L100.0100, L300.3900 #### [facility] [address] [place], [address] Lymphocytes/100 WBC (Bld) 1.5 % Low 19-41 [facility] Comment on above: Performed By: #### L 500.4050, L100.0100, L300.3900 #### [facility] [address] [place], [address] MCH (RBC) [Entitic mass] 26.2 pg Low 27.0-32.0 [facility] Comment on above: Performed By: #### L 500.4050, L100.0100, L300.3900 #### [facility] [address] [place], [address] MCHC (RBC) [Mass/Vol] 29.6 g/dL Low 32-36 [facility] Comment on above: Performed By: #### L 500.4050, L100.0100, L300.3900 #### [facility] [address] [place], [address] MCV (RBC) [Entitic vol] 88.4 fL Normal 81-99 [facility] Comment on above: Performed By: #### L 500.4050, L100.0100, L300.3900 #### [facility] [address] [place], [address] Monocytes/100 WBC (Bld) 2.6 % Normal 0-10 [facility] Comment on above: Performed By: #### L 500.4050, L100.0100, L300.3900 #### [facility] [address] [place], [address] Neutrophils/100 WBC (Bld) 95.0 % High 47-70 [facility] Comment on above: Performed By: #### L 500.4050, L100.0100, L300.3900 #### [facility] [address] [place], [address] Nucleated RBC (Bld) [#/Vol] 0 10*3/uL Normal 0-5 [facility] Comment on above: Performed By: #### L 500.4050, L100.0100, L300.3900 #### [facility] [address] [place], [address] Platelet mean volume (Bld) [Entitic vol] 10.5 fL Normal 6.2-12.0 [facility] Comment on above: Performed By: #### L 500.4050, L100.0100, L300.3900 #### [facility] [address] [place], [address] Platelets (Bld) [#/Vol] 325 10*3/uL Normal 150-450 [facility] Comment on above: Performed By: #### L 500.4050, L100.0100, L300.3900 #### [facility] [address] [place], [address] RBC (Bld) [#/Vol] 3.78 10*6/uL Low 4.2-5.4 [facility] Comment on above: Performed By: #### L 500.4050, L100.0100, L300.3900 #### [facility] [address] [place], [address] RDW SD 44.2 fl High 35.1-43.9 [facility] Comment on above: Performed By: #### L 500.4050, L100.0100, L300.3900 #### [facility] [address] [place], [address] WBC (Bld) [#/Vol] 19.7 10*3/uL High 4.4-11.0 [facility] Comment on above: Performed By: #### L 500.4050, L100.0100, L300.3900 #### [facility] [address] [place], [address] Magnesiumon 06-16-2024 Magnesium [Mass/Vol] 1.8 mg/dL Normal 1.6-2.6 [facility] Comment on above: Performed By: #### L 500.4050, L100.0100, L300.3900 #### [facility] [address] [place], [address] Phosphoruson 06-16-2024 Phosphate [Mass/Vol] 2.9 mg/dL Normal 2.5-4.9 [facility] Comment on above: Performed By: #### L 500.4050, L100.0100, L300.3900 #### [facility] [address] [place], [address] Prothrombin Time w/INRon INR Coag (PPP) [Relative time] 8.5 {INR} Invalid Interpretation Code [facility] Comment on above: Result Comment: CRIT ICAL VALUE CALLED TO RANDA GONZALEZ (MS3) 06/16/24 0734 Leoncio Bright. RESULTS READ BACK BY SAME. Performed By: #### L 300.3900 ####[facility] [address] [place], [address] PT Coag (PPP) [Time] 69.6 s High 11.7-14.9 [facility] Comment on above: Performed By: #### L 300.3900 ####[facility] [address] [place], [address] BNP,B-Type NATRIURETIC PEPTI Jeff 06-15-2024 Natriuretic peptide B (Bld) [Mass/Vol] 350.8 pg/mL High 0-100 [facility] Comment on above: Performed By: #### L 503.6620 ####[facility] [address] [place], [address] CBC W/Diff, Automatedon 11- Absolute Lymph 0.41 X10 3/uL Low 0.83-4.51 [facility] Comment on above: Performed By: #### L 500.4050, L100.0100, L300.3900 #### [facility] [address] [place], [address] Absolute Neut 14.1 X10 3/uL High 2.0-7.7 [facility] Comment on above: Performed By: #### L 500.4050, L100.0100, L300.3900 #### [facility] [address] [place], [address] Basophils/100 WBC (Bld) 0.1 % Normal 0-1 [facility] Comment on above: Performed By: #### L 500.4050, L100.0100, L300.3900 #### [facility] [address] [place], [address] Eosinophils/100 WBC (Bld) 0.0 % Normal 0-5 [facility] Comment on above: Performed By: #### L 500.4050, L100.0100, L300.3900 #### [facility] [address] [place], [address] Erythrocyte distribution width (RBC) [Ratio] 13.5 % Normal 11.6-14.6 [facility] Comment on above: Performed By: #### L 500.4050, L100.0100, L300.3900 #### [facility] [address] [place], [address] Hematocrit (Bld) [Volume fraction] 33.7 % Low 37-47 [facility] Comment on above: Performed By: #### L 500.4050, L100.0100, L300.3900 #### [facility] [address] [place], [address] Hemoglobin (Bld) [Mass/Vol] 9.7 g/dL Low 12.0-15.0 [facility] Comment on above: Performed By: #### L 500.4050, L100.0100, L300.3900 #### [facility] [address] [place], [address] IG% 0.300 Normal 0.0-0.9 [facility] Comment on above: Result Comment: IG% - Immature Granulocytes (promyelocytes, myelocytes and metamyelocytes) > 1% indicates that a LEFT SHIFT is Present. Performed By: #### L 500.4050, L100.0100, L300.3900 #### [facility] [address] [place], [address] Lymphocytes/100 WBC (Bld) 2.8 % Low 19-41 [facility] Comment on above: Performed By: #### L 500.4050, L100.0100, L300.3900 #### [facility] [address] [place], [address] MCH (RBC) [Entitic mass] 25.9 pg Low 27.0-32.0 [facility] Comment on above: Performed By: #### L 500.4050, L100.0100, L300.3900 #### [facility] [address] [place], [address] MCHC (RBC) [Mass/Vol] 28.8 g/dL Low 32-36 [facility] Comment on above: Performed By: #### L 500.4050, L100.0100, L300.3900 #### [facility] [address] [place], [address] MCV (RBC) [Entitic vol] 89.9 fL Normal 81-99 [facility] Comment on above: Performed By: #### L 500.4050, L100.0100, L300.3900 #### [facility] [address] [place], [address] Monocytes/100 WBC (Bld) 1.2 % Normal 0-10 [facility] Comment on above: Performed By: #### L 500.4050, L100.0100, L300.3900 #### [facility] [address] [place], [address] Neutrophils/100 WBC (Bld) 95.6 % High 47-70 [facility] Comment on above: Performed By: #### L 500.4050, L100.0100, L300.3900 #### [facility] [address] [place], [address] Nucleated RBC (Bld) [#/Vol] 0 10*3/uL Normal 0-5 [facility] Comment on above: Performed By: #### L 500.4050, L100.0100, L300.3900 #### [facility] [address] [place], [address] Platelet mean volume (Bld) [Entitic vol] 10.2 fL Normal 6.2-12.0 [facility] Comment on above: Performed By: #### L 500.4050, L100.0100, L300.3900 #### [facility] [address] [place], [address] Platelets (Bld) [#/Vol] 278 10*3/uL Normal 150-450 [facility] Comment on above: Performed By: #### L 500.4050, L100.0100, L300.3900 #### [facility] [address] [place], [address] RBC (Bld) [#/Vol] 3.75 10*6/uL Low 4.2-5.4 [facility] Comment on above: Performed By: #### L 500.4050, L100.0100, L300.3900 #### [facility] [address] [place], [address] RDW SD 45.0 fl High 35.1-43.9 [facility] Comment on above: Performed By: #### L 500.4050, L100.0100, L300.3900 #### [facility] [address] [place], [address] WBC (Bld) [#/Vol] 14.8 10*3/uL High 4.4-11.0 [facility] Comment on above: Performed By: #### L 500.4050, L100.0100, L300.3900 #### [facility] [address] [place], [address] Comprehensive Metabolic Prof ilon 06-15-2024 Albumin [Mass/Vol] 2.5 g/dL Low 3.2-5.0 [facility] Comment on above: Performed By: #### L 500.4050, L100.0100, L300.3900 #### [facility] [address] [place], [address] Albumin/Globulin [Mass ratio] 0.7 {ratio} Low 0.9-2.4 [facility] Comment on above: Performed By: #### L 500.4050, L100.0100, L300.3900 #### [facility] [address] [place], [address] ALK P 69 U/L Normal 45-117 [facility] Comment on above: Performed By: #### L 500.4050, L100.0100, L300.3900 #### [facility] [address] [place], [address] ALT [Catalytic activity/Vol] 22 U/L Normal 13-56 [facility] Comment on above: Performed By: #### L 500.4050, L100.0100, L300.3900 #### [facility] [address] [place], [address] AST [Catalytic activity/Vol] 22 U/L Normal 15-37 [facility] Comment on above: Performed By: #### L 500.4050, L100.0100, L300.3900 #### [facility] [address] [place], [address] Bilirubin [Mass/Vol] 0.30 mg/dL Normal 0.20-1.00 [facility] Comment on above: Result Comment: For patients on eltrombopag therapy, use of Dimension [place] TBIL is not recommended. Performed By: #### L 500.4050, L100.0100, L300.3900 #### [facility] [address] [place], [address] BUN/CRE 15.4 RATIO Normal 10-20 [facility] Comment on above: Performed By: #### L 500.4050, L100.0100, L300.3900 #### [facility] [address] [place], [address] CA,Total 9.3 mg/dL Normal 8.5-10.1 [facility] Comment on above: Performed By: #### L 500.4050, L100.0100, L300.3900 #### [facility] [address] [place], [address] Chloride [Moles/Vol] 101 mmol/L Normal 98-107 [facility] Comment on above: Performed By: #### L 500.4050, L100.0100, L300.3900 #### [facility] [address] [place], [address] CO2 [Moles/Vol] 36.0 mmol/L High 21.0-32.0 [facility] Comment on above: Performed By: #### L 500.4050, L100.0100, L300.3900 #### [facility] [address] [place], [address] Creatinine [Mass/Vol] 0.97 mg/dL Normal 0.55-1.02 [facility] Comment on above: Result Comment: The validity of the calculated GFR GFRAA in patients over 70 years has not been determined. Clinical correlation is essential. Performed By: #### L 500.4050, L100.0100, L300.3900 #### [facility] [address] [place], [address] ECRCL 33.78 ml/min Normal [facility] Comment on above: Performed By: #### L 500.4050, L100.0100, L300.3900 #### [facility] [address] [place], [address] EST GFR - AA 71 mL/min Normal >60 [facility] Comment on above: Result Comment: Afri can Beninese GFR Calc Performed By: #### L 500.4050, L100.0100, L300.3900 #### [facility] [address] [place], [address] GAP 3 Low 5-15 [facility] Comment on above: Performed By: #### L 500.4050, L100.0100, L300.3900 #### [facility] [address] [place], [address] GFR/1.73 sq M.predicted among non-blacks MDRD (S/P/Bld) [Vol rate/Area] 59 mL/min/{1.73_m2} Low >60 [facility] Comment on above: Result Comment: Non- GFR Calc Performed By: #### L 500.4050, L100.0100, L300.3900 #### [facility] [address] [place], [address] Globulin (S) [Mass/Vol] 3.7 g/dL Normal 2.2-4.2 [facility] Comment on above: Performed By: #### L 500.4050, L100.0100, L300.3900 #### [facility] [address] [place], [address] Glucose [Mass/Vol] 144 mg/dL High 74-106 [facility] Comment on above: Result Comment: Fast ing Glucose result greater than or equal to 126 mg/dL suggests DIABETES MELLITUS per A.D.A. criteria. Performed By: #### L 500.4050, L100.0100, L300.3900 #### [facility] [address] [place], [address] Potassium [Moles/Vol] 3.7 mmol/L Normal 3.5-5.1 [facility] Comment on above: Performed By: #### L 500.4050, L100.0100, L300.3900 #### [facility] [address] [place], [address] Sodium [Moles/Vol] 140 mmol/L Normal 136-145 [facility] Comment on above: Performed By: #### L 500.4050, L100.0100, L300.3900 #### [facility] [address] [place], [address] T PROT 6.2 g/dL Low 6.4-8.2 [facility] Comment on above: Performed By: #### L 500.4050, L100.0100, L300.3900 #### [facility] [address] [place], [address] Urea nitrogen [Mass/Vol] 15 mg/dL Normal 7-18 [facility] Comment on above: Performed By: #### L 500.4050, L100.0100, L300.3900 #### [facility] [address] [place], [address] Echo Completeon 06-15-2024 Echo Complete [facility] [address] [place] [address] Echo Complete 06/16/24 0954 MR#: [id number] Acct: [id number] Name: ELZA CHU Rep #: [id number] : 1945 78 From: Brendan Simmons MD Attending Dr: Dr. Harry Pate MD Status: ADM IN Ordering Dr: Ryan Canseco MD Date: 06/15/24 Location: [facility] Sex: F C Admitted: 06/14/24 Reason For Study: CHF Procedure This was a 2D Doppler, Color Flow transthoracic echocardiogram. Exam performed portable in patient room. Left Ventricle Normal LV size. Left ventricular systolic function is normal. The left ventricular ejection fraction is 55 %. No regional wall motion abnormalities noted. Right Ventricle Normal RV size. Normal systolic function. Atria The left atrium is severely enlarged. Normal right atrium. Bubble contrast study negative for right to left interatrial shunt. Mitral Valve There is mild to moderate mitral annular calcification. Mild (1+) eccentric mitral valve insufficiency. Tricuspid Valve Normal tricuspid valve. Mild (1+) tricuspid valve insufficiency. Aortic Valve Stable appearing mechanical aortic valve apparatus. Pulmonic Valve Normal pulmonic valve. Mild (1+) pulmonic valve insufficiency. Great Vessels Mildly dilated aortic root. Medication Performed a rapid injection of agitated mix of 9 cc saline and 1cc air to assess for atrial septal defect. MMode/2D Measurements Calculations LVIDd: 3.5 cm IVSd: 1.2 cm LAV(MOD-bp): 98.8 ml LVIDs: 2.4 cm LVPWd: 1.1 cm LAV(MOD-bp) Indexed: 67.4 ml/m2 RVDd: 2.7 cm FS: 32.4 % LAV(MOD-sp2): 83.2 ml LAV(MOD-sp4): 113.1 ml SV(MOD-sp4): 38.7 ml SV(sp4-el): 41.4 ml LVAd ap4: 21.8 cm2 LVLd ap4: 6.3 cm SI(MOD-sp4): 26.4 ml/m2 EDV(MOD-sp4): 62.9 ml EDV(sp4-el): 64.1 ml LVAs ap4: 12.0 cm2 LVLs ap4: 5.4 cm ESV(MOD-sp4): 24.2 ml ESV(sp4-el): 22.6 ml EF(MOD-sp4): 61.5 % EF(sp4-el): 64.7 % LA A4 area: 31.0 cm2 RA A4 area: 9.7 cm2 TAPSE: 2.1 cm Doppler Measurements Calculations Ao V2 max: 189.3 cm/sec LV V1 max: 195.1 cm/sec PA V2 max: 85.8 cm/sec Ao max P.3 mmHg LV V1 max P.3 mmHg PA V2 mean: 63.3 cm/sec Ao V2 mean: 131.3 cm/sec LV V1 mean P.1 mmHg Ao mean P.9 mmHg LV V1 mean: 132.8 cm/sec Ao V2 VTI: 31.8 cm LV V1 VTI: 35.0 cm AV (velocity ratio): 1.1 ECHO/Echo Complete Interpretation Summary Normal LV size. Left ventricular systolic function is normal. The left ventricular ejection fraction is 55 %. The left atrium is severely enlarged. Stable appearing mechanical aortic valve apparatus. Ordering Physician: Ryan Canseco Referring Physician: KOLBY KIM Performed By: Kala Rizzo RCS 06/16/24 1501 Date Brendan Simmons MD CC: Dr. Ryan Canseco MD; Dr. Harry Pate MD; Dr. Kolby Kim MD Date Dictated: 06/16/24 0954 Date Transcribed: 06/16/24 1501 Ventilating Expert: Signed Normal [facility] Gram Stainon 06-15-2024 GS Acceptable Specimen? Yes (<25 Epithelial cells per/lpf) Gram Stain 4+ White Blood Cells 2+ Gram negative rods Rare Gram positive cocci No Epithelial cells Normal [facility] Comment on above: Performed By: #### L 500.4050, L100.0100, L300.3900 #### [facility] [address] [place], [address] Prothrombin Time w/INRon INR Coag (PPP) [Relative time] 3.6 {INR} Normal [facility] Comment on above: Performed By: #### L 500.4050, L100.0100, L300.3900 #### [facility] [address] [place], [address] PT Coag (PPP) [Time] 35.8 s High 11.7-14.9 [facility] Comment on above: Performed By: #### L 500.4050, L100.0100, L300.3900 #### [facility] [address] [place], [address] RESPIRATORY PANEL MOLECULARo n 06-15-2024 RP PANEL Normal Reference Range = Not Detected Resp path DNA+RNA Pnl Resp DELFINA+probe Nucleic acid amplification test method ADENOVIRUS Not Detected INFLUENZA A Not Detected INFLUENZA A (SUBTYPE H1) Not Detected INFLUENZA A (SUBTYPE H3) Not Detected INFLUENZA B Not Detected HUMAN METAPHNEUMO Not Detected PARAINFLUENZA 1 Not Detected PARAINFLUENZA 2 Not Detected PARAINFLUENZA 3 Not Detected PARAINFLUENZA 4 Not Detected RHINOVIRUS Not Detected RSV A Not Detected RSV B Not Detected Normal [facility] Comment on above: Performed By: #### M 300.4500, M300.4600, M100.638 ####[facility] [address] [place], [address] Urine Cultureon 06-15-2024 URC Culture exhibits no growth. Normal [facility] Comment on above: Performed By: #### L 500.4050, L100.0100, L300.3900 #### [facility] [address] [place], [address] 12 Lead EKGon 06-14-2024 12 Lead EKG [facility] [address] [facility] [place] [address] 12 Lead EKG 06/14/24 1700 MR#: [id number] Acct: [id number] Name: ELZA CHU Rep #: [id number] : 1945 78 From: Brendan Simmons MD Attending Dr: Dr. Harry Paet MD Status: ADM IN Ordering Dr: Isiah Galaviz DO Date: 06/14/24 [facility]: [facility] Sex: F C Admitted: 06/14/24 Test Reason : SOB Blood Pressure : */* mmHG Vent. Rate : 84 BPM Atrial Rate : 84 BPM P-R Int : 96 ms QRS Dur : 82 ms QT Int : 394 ms P-R-T Axes : * -3 60 degrees QTcB Int : 465 ms Sinus rhythm with short [place] Otherwise normal ECG Confirmed by BRENDAN SIMMONS MD ([id number]), health editor HILDA WINTER ([id number]) on 06/16/2024 8:12:40 AM Referred By: Confirmed By: BRENDAN SIMMONS MD 06/16/24 0812 Date Brendan Simmons MD CC: Dr. Harry Pate MD; Dr. Isiah Galaviz DO; Dr. Kolby Kim MD Signed Normal [facility] BNP,B-Type NATRIURETIC PEPTI Jeff 06-14-2024 Natriuretic peptide B (Bld) [Mass/Vol] 211.0 pg/mL High 0-100 [facility] Comment on above: Performed By: #### L 300.4310, L300.3900, L503.6620 #### [facility] [address] [place], [address] Basic Metabolic Profile (BMP )on 06-14-2024 BUN/CRE 15.7 RATIO Normal 10-20 [facility] Comment on above: Order Comment: 'TROP ' Serial specimen #1, #2 or #3: 1 Performed By: #### L 500.4050, L100.0100, L300.3900 #### [facility] [address] [place], [address] CA,Total 8.8 mg/dL Normal 8.5-10.1 [facility] Comment on above: Order Comment: 'TROP ' Serial specimen #1, #2 or #3: 1 Performed By: #### L 500.4050, L100.0100, L300.3900 #### [facility] [address] [place], [address] Chloride [Moles/Vol] 101 mmol/L Normal 98-107 [facility] Comment on above: Order Comment: 'TROP ' Serial specimen #1, #2 or #3: 1 Performed By: #### L 500.4050, L100.0100, L300.3900 #### [facility] [address] [place], [address] CO2 [Moles/Vol] 35.0 mmol/L High 21.0-32.0 [facility] Comment on above: Order Comment: 'TROP ' Serial specimen #1, #2 or #3: 1 Performed By: #### L 500.4050, L100.0100, L300.3900 #### [facility] [address] [place], [address] Creatinine [Mass/Vol] 1.02 mg/dL Normal 0.55-1.02 [facility] Comment on above: Order Comment: 'TROP ' Serial specimen #1, #2 or #3: 1 Result Comment: The validity of the calculated GFR GFRAA in patients over 70 years has not been determined. Clinical correlation is essential. Performed By: #### L 500.4050, L100.0100, L300.3900 #### [facility] [address] [place], [address] ECRCL 32.12 ml/min Normal [facility] Comment on above: Order Comment: 'TROP ' Serial specimen #1, #2 or #3: 1 Performed By: #### L 500.4050, L100.0100, L300.3900 #### [facility] [address] [place], [address] EST GFR - AA 67 mL/min Normal >60 [facility] Comment on above: Order Comment: 'TROP ' Serial specimen #1, #2 or #3: 1 Result Comment: Afri can [place] GFR Calc Performed By: #### L 500.4050, L100.0100, L300.3900 #### [facility] [address] [place], [address] GAP 4 Low 5-15 [facility] Comment on above: Order Comment: 'TROP ' Serial specimen #1, #2 or #3: 1 Performed By: #### L 500.4050, L100.0100, L300.3900 #### [facility] [address] [place], [address] GFR/1.73 sq M.predicted among non-blacks MDRD (S/P/Bld) [Vol rate/Area] 56 mL/min/{1.73_m2} Low >60 [facility] Comment on above: Order Comment: 'TROP ' Serial specimen #1, #2 or #3: 1 Result Comment: Non- GFR Calc Performed By: #### L 500.4050, L100.0100, L300.3900 #### [facility] [address] [place], [address] Glucose [Mass/Vol] 98 mg/dL Normal 74-106 [facility] Comment on above: Order Comment: 'TROP ' Serial specimen #1, #2 or #3: 1 Performed By: #### L 500.4050, L100.0100, L300.3900 #### [facility] [address] [place], [address] Potassium [Moles/Vol] 3.7 mmol/L Normal 3.5-5.1 [facility] Comment on above: Order Comment: 'TROP ' Serial specimen #1, #2 or #3: 1 Performed By: #### L 500.4050, L100.0100, L300.3900 #### [facility] [address] [place], [address] Sodium [Moles/Vol] 139 mmol/L Normal 136-145 [facility] Comment on above: Order Comment: 'TROP ' Serial specimen #1, #2 or #3: 1 Performed By: #### L 500.4050, L100.0100, L300.3900 #### [facility] [address] [place], [address] Urea nitrogen [Mass/Vol] 16 mg/dL Normal 7-18 [facility] Comment on above: Order Comment: 'TROP ' Serial specimen #1, #2 or #3: 1 Performed By: #### L 500.4050, L100.0100, L300.3900 #### [facility] [address] [place], [address] CBC W/Diff, Automatedon 05-30 Anisocytosis Ql (Bld) RARE Normal [facility] Comment on above: Performed By: #### L 500.4050, L100.0100, L300.3900 #### [facility] [address] [place], [address] MACROCYTOSIS RARE Normal [facility] Comment on above: Performed By: #### L 500.4050, L100.0100, L300.3900 #### [facility] [address] [place], [address] RED CELL MORPH N CHROM Normal NORM C C [facility] Comment on above: Performed By: #### L 500.4050, L100.0100, L300.3900 #### [facility] [address] [place], [address] PLT EST ADEQUATE Normal ADEQ [facility] Comment on above: Performed By: #### L 500.4050, L100.0100, L300.3900 #### [facility] [address] [place], [address] SMEAR COMMENT SEE COMMENT Normal [facility] Comment on above: Result Comment: LYMP HOPENIA NOTED Performed By: #### L 500.4050, L100.0100, L300.3900 #### [facility] [address] [place], [address] Chest PA and Lateralon 06-14 Chest PA and Lateral [facility] Imaging Services [address] [place] [address] Chest PA and Lateral MR#: [id number] Acct: [id number] Name: ELZA CHU Rep #: [id number] : 1945 F 78 From: Kenneth Sheth MD PCP: Dr. Kolby Kim MD Status: REG ER Study: Chest PA and Lateral Date of Exam: 06/14/24 Exam# [id number] Ordering Dr: Isiah Galaviz DO [id number] STUDY: X-RAY CHEST REASON FOR EXAM: Female, 78 years old. chest pain TECHNIQUE: PA and lateral COMPARISON: March 25, 2024 FINDINGS: There is a small left pleural effusion with mild left basilar atelectasis and a larger effusion on the right with consolidation of the right lower lobe . Normal size heart. Normal mediastinum and chica. Normal visualized pulmonary arteries. Mildly calcified aortic arch and descending thoracic aorta. Postop change status post median sternotomy and CABG. Normal visualized thoracic spine. Normal visualized ribs, clavicles, and shoulders. Large hiatal hernia is noted. There is no demonstrated abnormality of the visualized soft tissue structures of the upper abdomen. RAD/Chest PA and Lateral IMPRESSION: Bilateral pleural effusions slightly larger on the right with mild consolidation of both lower lobes Electronically Signed: Kenneth Sheth MD at 18:21 EST Reading Location ID and State: [address] [place] [address] Tel , Service support , CC: Dr. Isiah Galaviz DO; Dr. Kolby Kim MD Ventilating Expert: Signed Normal [facility] Emergency Department Summary on 06-14-2024 Emergency Department Summary [facility] Medical Records Department [address] [place] [address] Emergency Department Summary 06/14/24 MR#: [id number] Acct: [id number] Name: ELZA CHU Rep #: [id number] : 1945 78 From: Isiah Galaviz DO PCP: Dr. Kolby Kim MD Status:[facility] ER Location: ED HPI History of Present Illness Chief Complaint: Shortness of Breath Narrative Narrative: Patient is a 78-year-old female past medical history of chronic kidney disease stage II, Lewy body dementia, GERD, anxiety, mechanical valve on warfarin, hypertension, hyperlipidemia, chronic hypoxic respiratory failure chronically on 4 L oxygen at home who presents to the emergency department with a chief complaint of cough and shortness of breath as well as some abdominal pain. According to the patient she states that for the past few days she has not been feeling well with increased sputum production. Significant other at bedside notes that she is complaining of more side pain likely from her coughing so much they note. Per nursing staff the patient was noted to be hypoxic on her 4 L oxygen to 88% they increased her to 6 L and her oxygen level improved to 96%. Denies any recent sick contacts. They also note that she is generally weak more than normal for her. [facility] Medical History Lewy body dementia CKD (chronic kidney disease), stage II NSTEMI, initial episode of care History of cardioversion ( 07/08/20) Chronic diastolic heart failure Bronchiectasis Essential hypertension Cough Allergic rhinitis GERD (gastroesophageal reflux disease) Chronic a-fib Hypoxemia Anxiety Chronic anticoagulation Severe sepsis CAP (community acquired pneumonia) Hemoptysis Atherosclerotic heart disease of [place] coronary artery without angina pectoris Syncope and collapse Palpitations Nonspecific chest pain Aneurysm, thoracic aortic Nonrheumatic aortic valve regurgitation Fatigue 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 Chronic sinusitis Asthma Aortic stenosis Obesity Hiatal hernia Depression Hyperlipidemia Hypertension Home Medications ???Medication ???Instructions ???Recorded ???Last Taken ???Type pantoprazole 40 mg tablet,delayed 40 mg PO BID ACID REFLUX 01/14/15 07/07/20 History release bupropion HCl 150 mg 24 hr tablet, 150 mg PO DAILY DEPRESSION 11/15/15 07/07/20 History extended release montelukast 10 mg tablet 10 mg PO QHS ALLERGIES 05/03/17 07/06/20 History potassium chloride 20 mEq 20 meq PO DAILY SUPPLEMENT 05/03/17 07/06/20 History tablet,extended release(part/cryst) furosemide 40 mg tablet 40 mg PO DAILY WATER PILL ##0 12/06/17 07/06/20 Rx albuterol sulfate 2.5 mg/3 mL 2.5 mg (3 mL) inhalation Q4H PRN 05/21/21 Unknown Rx (0.083 %) solution for nebulization #25 vials ferrous sulfate 325 mg (65 mg 325 mg PO BID Check with primary 11/29/21 Unknown History iron) tablet doctor nitroglycerin 0.4 mg sublingual 0.4 mg sublingual Q5M PRN 11/03/22 Unknown Rx tablet Cardiac/Chest Pain 30 days #30 tabs diazepam 2 mg tablet See Rx Instructions PO .COMPLEX 06/11/23 Unknown History ipratropium bromide 21 mcg (0.03 2 spray intranasal BID #30 mL 06/11/23 Unknown Rx %) nasal spray paroxetine HCl 30 mg tablet 30 mg PO DAILY 08/06/23 Unknown History warfarin 2.5 mg tablet 5 mg PO SUTUTHSA Check with 08/06/23 Unknown History primary doctor warfarin 3 mg tablet 3 mg PO MOWEFR 08/06/23 Unknown History ezetimibe 10 mg tablet See Rx Instructions .Route 08/27/23 Unknown Rx .COMPLEX #90 TABLETS pravastatin 80 mg tablet See Rx Instructions .Route 08/27/23 Unknown Rx .COMPLEX #90 tabs amiodarone 200 mg tablet 100 mg (1/2 x 200 mg) PO DAILY #45 09/25/23 Unknown Rx tabs amlodipine 2.5 mg tablet 2.5 mg PO DAILY #90 tabs 11/29/23 Unknown Rx donepezil 5 mg tablet 5 mg PO QDAY 01/24/24 Unknown History ergocalciferol (vitamin D2) 1,250 1,250 mcg PO .every other week 01/24/24 Unknown History mcg (50,000 unit) capsule metoprolol succinate 100 mg 100 mg PO DAILY 01/24/24 Unknown History tablet,extended release 24 hr albuterol sulfate 90 mcg/actuation 2 puff inhalation Q6H PRN 03/20/24 Unknown Rx aerosol inhaler shortness of breath or wheezing #8.5 grams loratadine 10 mg tablet 10 mg PO DAILY #90 tabs 06/02/24 Unknown Rx acetaminophen 500 mg tablet 500 mg PO Q4H PRN pain 06/14/24 Unknown History aspirin 81 mg tablet,delayed 162 mg PO BREAKFAST 06/14/24 Unknown History release Allergy/AdvReac Type Severity Reaction Status Date / Time risperidone Allergy Severe Confusion Verified 06/14/24 16:45 Sulfa (Sulfonamide Allergy Swelling Verified 06/14/24 16:45 Antibiotics) celecoxib (From Celebrex) AdvReac Severe Swelling Verified 06/14/24 16:45 dextromethorphan (From AdvReac Sever (more content not included)... Normal [facility] H AND P Exam - Hospitaliston 06-14-2024 H&P Exam - Hospitalist [facility] Medical Records Department [address] [place] [address] H P Exam - Hospitalist 06/14/24 1906 MR#: [id number] Acct: [id number] Name: ELZA CHU Rep #: [id number] : 1945 78 From: Faviola Perry MD PCP: Dr. Kolby Kim MD Status:REG ER Location: ED HPI - General General Date of Admission: 06/14/24 Date of Service: 06/14/24 Chief Complaint: Dyspnea, productive cough, fatigue, malaise, fever upon ED arrival HPI Narrative The patient is a 78 y/o F w/ PMHx: CKD stage III unclear subtype, Lewy body dementia with unclear behavioral disturbance history, Chronic AF, Anxiety and Depression, HTN, HLD, HFpEF, Chronic Hypoxic Respiratory Failure (4L NC baseline), Asthma/COPD w/ bronchiectasis and allergic rhinitis, Valvular Heart Disease s/p mechanical AVR 2013 on coumadin, Chronic normocytic anemia/iron deficiency anemia, HERLINDA noncompliant with PAP therapy who presents to the [facility] ED on 06/14/2024 with history of worsening dyspnea, cough, GEN malaise and fatigue with increased sputum production as well as significant flank discomfort from coughing fits with no specific recent ill contacts but given worsening status prompted ED evaluation to be cautious. It was also noted that they had to increase her oxygen up to 6 L to maintain appropriate saturation. Workup in the ED included T99, heart rate 86, BP 148/68, respiratory rate 25, initially 81% on 4 L nasal cannula home baseline regimen requiring transitionally 6 L nasal cannula for improvement with most recent repeat vital signs T1 100.3, heart rate 83, BP 131/57, respiratory rate 18, 92% oxygenation, CBC with WBC 14.5, hemoglobin 10.5, MCV 90.8, platelet 314 with left shift and lymphopenia, coags with INR 3.1, CMP with complex at 35, BUN/: 16/1.02, GFR 56, hepatic profile otherwise unremarkable, troponin 15, BNP 211, lipase 19, lactic acid minimally elevated 2.2, urinalysis unremarkable with no evidence of acute dehydration, urine culture pending per ED, blood culture x 2 pending per ED, rapid SARS COVID/influenza/RSV PCR pending per ED, chest x-ray with bilateral pleural effusions, right greater than left with mild consolidations both lower lobes, EKG with sinus rhythm with no acute evidence of ischemia. In the ED patient ministered Rocephin 1 g IV x 1, azithromycin 500 mg IV x 1, DuoNeb therapy x 3, Solu- Medrol 125 mg IV x 1 as well as ordered 2 L normal saline per ED physician. [facility] Medical History Lewy body dementia CKD (chronic kidney disease), stage II NSTEMI, initial episode of care History of cardioversion ( 07/08/20) Chronic diastolic heart failure Bronchiectasis Essential hypertension Cough Allergic rhinitis GERD (gastroesophageal reflux disease) Chronic a-fib Hypoxemia Anxiety Chronic anticoagulation Severe sepsis CAP (community acquired pneumonia) Hemoptysis Atherosclerotic heart disease of [place] coronary artery without angina pectoris Syncope and collapse Palpitations Nonspecific chest pain Aneurysm, thoracic aortic Nonrheumatic aortic valve regurgitation Fatigue 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 Chronic sinusitis Asthma Aortic stenosis Obesity Hiatal hernia Depression Hyperlipidemia Hypertension Home Medications ???Medication ???Instructions ???Recorded ???Last Taken ???Type pantoprazole 40 mg tablet,delayed 40 mg PO BID ACID REFLUX 01/14/15 07/07/20 History release bupropion HCl 150 mg 24 hr tablet, 150 mg PO DAILY DEPRESSION 11/15/15 07/07/20 History extended release montelukast 10 mg tablet 10 mg PO QHS ALLERGIES 05/03/17 07/06/20 History potassium chloride 20 mEq 20 meq PO DAILY SUPPLEMENT 05/03/17 07/06/20 History tablet,extended release(part/cryst) furosemide 40 mg tablet 40 mg PO DAILY WATER PILL ##0 12/06/17 07/06/20 Rx albuterol sulfate 2.5 mg/3 mL 2.5 mg (3 mL) inhalation Q4H PRN 05/21/21 Unknown Rx (0.083 %) solution for nebulization #25 vials ferrous sulfate 325 mg (65 mg 325 mg PO BID Check with primary 11/29/21 Unknown History iron) tablet doctor nitroglycerin 0.4 mg sublingual 0.4 mg sublingual Q5M PRN 11/03/22 Unknown Rx tablet Cardiac/Chest Pain 30 days #30 tabs diazepam 2 mg tablet See Rx Instructions PO .COMPLEX 06/11/23 Unknown History ipratropium bromide 21 mcg (0.03 2 spray intranasal BID #30 mL 06/11/23 Unknown Rx %) nasal spray paroxetine HCl 30 mg tablet 30 mg PO DAILY 08/06/23 Unknown History warfarin 2.5 mg tablet 5 mg PO SUTUTH Check with 08/06/23 Unknown History primary doctor warfarin 3 mg tablet 3 mg PO MOWEFR 08/06/23 Unknown History ezetimibe 10 mg tablet See Rx Instructions .Route 08/27/23 Unknown Rx .COMPLEX #90 TABLETS pravastatin 80 mg tablet See Rx Instructions .Route 08/27/23 Unknown Rx .COMPLEX #90 tabs amiodarone 200 mg tablet (more content not included)... Normal [facility] L501.4020on 06-14-2024 TROPONIN-I HS 15 pg/mL Normal 3.0-54.0 [facility] Comment on above: Order Comment: 'TROP ' Serial specimen #1, #2 or #3: 1 Result Comment: Geovanni moreno Note: New Test Units and Gender Specific Reference Ranges. For more information see Policy Stat Procedure [place] High Sensitivity Troponin (TNIH) and attachments. Performed By: #### L 500.4050, L100.0100, L300.3900 #### [facility] [address] [place], [address] Lactic Acidon 06-14-2024 Lactate [Moles/Vol] 2.1 mmol/L Invalid Interpretation Code 0.4-1.9 [facility] Comment on above: Result Comment: Crit ical Result(s) Called at: 21:54:01 06/14/2024 by: USMAN PARKER TO CARLOS MAGANA. Results read back by same. Performed By: #### L 503.6005 #### [facility] [address] [place], [place], [address] Lactate [Moles/Vol] 2.2 mmol/L Invalid Interpretation Code 0.4-1.9 [facility] Comment on above: Order Comment: Y Result Comment: Crit ical Result(s) Called at: 17:59:36 06/14/2024 by: USMAN PARKER TO IVETT SANTOS. Results read back by same. Performed By: #### L 500.4050, L100.0100, L300.3900 #### [facility] [address] [place], [address] Legionella Antigen Urineon 1 08-14-2023 LEGU URINE, CATHETER Legionella Antigen result interpretation: L pneumo Ag Ur Ql Negative Presumptive negative for Legionella pneumophila serogroup 1 antigen in urine, suggesting no recent or current infection. Legionella Ag, Urine Negative (See interpretation below) Normal [facility] Comment on above: Performed By: #### M 300.4500, M300.4600, M100.638 ####[facility] [address] [place], [address] Lipaseon 06-14-2024 Lipase [Catalytic activity/Vol] 19 U/L Normal 13-75 [facility] Comment on above: Order Comment: 'TROP ' Serial specimen #1, #2 or #3: 1 Result Comment: Geovanni moreno note: LIPASE revised reference range effective 22. New Lipase methodology. Expected to produce lower values than the previous assay method. NEW Reference Range: 13 - 75 U/L Performed By: #### L 500.4050, L100.0100, L300.3900 #### [facility] [address] [place], [address] Liver Profileon 06-14-2024 Albumin [Mass/Vol] 3.0 g/dL Low 3.2-5.0 [facility] Comment on above: Order Comment: 'TROP ' Serial specimen #1, #2 or #3: 1 Performed By: #### L 500.4050, L100.0100, L300.3900 #### [facility] [address] [place], [address] ALK P 87 U/L Normal 45-117 [facility] Comment on above: Order Comment: 'TROP ' Serial specimen #1, #2 or #3: 1 Performed By: #### L 500.4050, L100.0100, L300.3900 #### [facility] [address] [place], [address] ALT [Catalytic activity/Vol] 20 U/L Normal 13-56 [facility] Comment on above: Order Comment: 'TROP ' Serial specimen #1, #2 or #3: 1 Performed By: #### L 500.4050, L100.0100, L300.3900 #### [facility] [address] [place], [address] AST [Catalytic activity/Vol] 21 U/L Normal 15-37 [facility] Comment on above: Order Comment: 'TROP ' Serial specimen #1, #2 or #3: 1 Performed By: #### L 500.4050, L100.0100, L300.3900 #### [facility] [address] [place], [address] Bilirubin [Mass/Vol] 0.30 mg/dL Normal 0.20-1.00 [facility] Comment on above: Order Comment: 'TROP ' Serial specimen #1, #2 or #3: 1 Result Comment: For patients on eltrombopag therapy, use of Dimension [place] TBIL is not recommended. Performed By: #### L 500.4050, L100.0100, L300.3900 #### [facility] [address] [place], [address] Bilirubin.direct [Mass/Vol] 0.15 mg/dL Normal 0.00-0.30 [facility] Comment on above: Order Comment: 'TROP ' Serial specimen #1, #2 or #3: 1 Performed By: #### L 500.4050, L100.0100, L300.3900 #### [facility] [address] [place], [address] Globulin (S) [Mass/Vol] 3.9 g/dL Normal 2.2-4.2 [facility] Comment on above: Order Comment: 'TROP ' Serial specimen #1, #2 or #3: 1 Performed By: #### L 500.4050, L100.0100, L300.3900 #### [facility] [address] [place], [address] T PROT 6.9 g/dL Normal 6.4-8.2 [facility] Comment on above: Order Comment: 'TROP ' Serial specimen #1, #2 or #3: 1 Performed By: #### L 500.4050, L100.0100, L300.3900 #### [facility] [address] [place], [address] M100.678on 06-14-2024 M100.678 Pending SARS-CoV-2 (COVID 19) Negative INFLUENZA A Negative INFLUENZA B Negative RSV PCR Negative Normal [facility] Comment on above: Performed By: #### L 500.4050, L100.0100, L300.3900 #### [facility] [address] [place], [address] M8200.1000on 06-14-2024 M8200.1000 Normal Reference Range = Negative MRSA DNA Nose Ql DELFINA+probe GeneXpert Instrument, PCR method MRSA PCR MRSA NEGATIVE Normal [facility] Comment on above: Performed By: #### L 500.4050, L100.0100, L300.3900 #### [facility] [address] [place], [address] Partial Thromboplast Timeon 06-14-2024 aPTT Coag (Bld) [Time] 35.2 s Normal 24.1-36.2 [facility] Comment on above: Performed By: #### L 300.4310, L300.3900, L503.6620 #### [facility] [address] [place], [address] Procalcitoninon 06-14-2024 Procalcitonin 0.32 ng/mL High 0.00-0.09 [facility] Comment on above: Result Comment: A procalcitonin (PCT) level above 2.0 ng/mL on the first day of ICU admission is associated with a high risk for progression to severe sepsis and/or septic shock. A PCT level below 0.5 ng/mL on the first day of ICU admission is associated with a low risk for progression to severe and/or septic shock. Note: Concentrations <0.5 ng/mL do not exclude an infection on account of localized infections (without systemic signs) which can be associated with such low concentrations, or a systemic infection in its initial stages (<6 hours). Furthermore, increased procalcitonin can occur without infection. PCT concentrations between 0.5 and 2.0 ng/mL should be interpreted taking into account the patient's history. It is recommended to retest PCT within 6-24 hours if any concentrations <2 ng/mL are obtained. Performed By: #### L 500.4050, L100.0100, L300.3900 #### [facility] [address] [place], [address] Prothrombin Time w/INRon INR Coag (PPP) [Relative time] 3.1 {INR} Normal [facility] Comment on above: Performed By: #### L 300.4310, L300.3900, L503.6620 #### [facility] [address] [place], [address] PT Coag (PPP) [Time] 32.0 s High 11.7-14.9 [facility] Comment on above: Performed By: #### L 300.4310, L300.3900, L503.6620 #### [facility] [address] [place], [address] Strep pneumoniae Antig(UR,CS F)on 06-14-2024 STPAG URINE, CATHETER Strep pneumoniae Antig(UR,CSF) [] Negative Urine Presumptive negative for pneumococcal pneumonia, suggesting no current or recent pneumococcal infection. Infection due to S pneumoniae cannot be ruled out since the antigen present in the sample may be below the detection limit of the test. Strep pneumo Test Negative URINE (See interpretation below) Normal [facility] Comment on above: Performed By: #### M 300.4500, M300.4600, M100.638 ####[facility] [address] [place], [address] Urinalysis, Completeon 06-14 EPI,SQUAMOUS 0-5 SEEN Normal 5-10 [facility] Comment on above: Order Comment: JOSE TER SPECIMEN Performed By: #### L 500.4050, L100.0100, L300.3900 #### [facility] [address] [place], [address] BACTERIA RARE Normal None Seen [facility] Comment on above: Order Comment: JOSE TER SPECIMEN Performed By: #### L 500.4050, L100.0100, L300.3900 #### [facility] [address] [place], [address] RBC 10-25 SEEN Normal 0-5 [facility] Comment on above: Order Comment: JOSE TER SPECIMEN Performed By: #### L 500.4050, L100.0100, L300.3900 #### [facility] [address] [place], [address] WBC 10-25 SEEN Normal 0-5 [facility] Comment on above: Order Comment: JOSE TER SPECIMEN Performed By: #### L 500.4050, L100.0100, L300.3900 #### [facility] [address] [place], [address] BILIRUBIN URINE Negative Normal Negative [facility] Comment on above: Order Comment: JOSE TER SPECIMEN Performed By: #### L 500.4050, L100.0100, L300.3900 #### [facility] [address] [place], [address] Clarity (U) Clear Normal Clear [facility] Comment on above: Order Comment: JOSE TER SPECIMEN Performed By: #### L 500.4050, L100.0100, L300.3900 #### [facility] [address] [place], [address] Color (U) Straw Normal Yellow [facility] Comment on above: Order Comment: JOSE TER SPECIMEN Performed By: #### L 500.4050, L100.0100, L300.3900 #### [facility] [address] [place], [address] GLUCOSE, UR Normal Normal Normal [facility] Comment on above: Order Comment: JOSE TER SPECIMEN Performed By: #### L 500.4050, L100.0100, L300.3900 #### [facility] [address] [place], [address] KETONE UR Negative Normal Negative [facility] Comment on above: Order Comment: JOSE TER SPECIMEN Performed By: #### L 500.4050, L100.0100, L300.3900 #### [facility] [address] [place], [address] LEUK ESTERASE 25 /ul Abnormal Negative [facility] Comment on above: Order Comment: JOSE TER SPECIMEN Performed By: #### L 500.4050, L100.0100, L300.3900 #### [facility] [address] [place], [address] Nitrite Ql (U) Negative Normal Negative [facility] Comment on above: Order Comment: JOSE TER SPECIMEN Performed By: #### L 500.4050, L100.0100, L300.3900 #### [facility] [address] [place], [address] OCCULT BLOOD-UR 25 /ul Abnormal Negative [facility] Comment on above: Order Comment: JOSE TER SPECIMEN Performed By: #### L 500.4050, L100.0100, L300.3900 #### [facility] [address] [place], [address] pH UR 6.5 Normal 5.0 - 8.0 [facility] Comment on above: Order Comment: JOSE TER SPECIMEN Performed By: #### L 500.4050, L100.0100, L300.3900 #### [facility] [address] [place], [address] PROT DIPSTX Negative Normal Negative [facility] Comment on above: Order Comment: JOSE TER SPECIMEN Performed By: #### L 500.4050, L100.0100, L300.3900 #### [facility] [address] [place], [address] SP.GR. DIPSTX 1.010 Normal 1.002-1.030 [facility] Comment on above: Order Comment: JOSE TER SPECIMEN Performed By: #### L 500.4050, L100.0100, L300.3900 #### [facility] [address] [place], [address] UROBILI Normal Normal Normal [facility] Comment on above: Order Comment: JOSE TER SPECIMEN Performed By: #### L 500.4050, L100.0100, L300.3900 #### [facility] [address] [place], [address] Mucus Ql (Urine sed) 0 SEEN Normal [facility] Comment on above: Order Comment: OJSE TER SPECIMEN Performed By: #### L 500.4050, L100.0100, L300.3900 #### [facility] [address] [place], [address] Basic Metabolic Profile (BMP )on 04-07-2024 BUN/CRE 14.9 RATIO Normal 10-20 [facility] Comment on above: Performed By: #### L 503.6005 #### [facility] [address] [place], [address] CA,Total 9.4 mg/dL Normal 8.5-10.1 [facility] Comment on above: Performed By: #### L 503.6005 #### [facility] [address] [place], [address] Chloride [Moles/Vol] 104 mmol/L Normal 98-107 [facility] Comment on above: Performed By: #### L 503.6005 #### [facility] [address] [place], [address] CO2 [Moles/Vol] 34.0 mmol/L High 21.0-32.0 [facility] Comment on above: Performed By: #### L 503.6005 #### [facility] [address] [place], [address] Creatinine [Mass/Vol] 1.01 mg/dL Normal 0.55-1.02 [facility] Comment on above: Result Comment: The validity of the calculated GFR GFRAA in patients over 70 years has not been determined. Clinical correlation is essential. Performed By: #### L 503.6005 #### [facility] [address] [place], [address] EST GFR - AA 68 mL/min Normal >60 [facility] Comment on above: Result Comment: Afri can Beninese GFR Calc Performed By: #### L 503.6005 #### [facility] [address] [place], [address] GAP 4 Low 5-15 [facility] Comment on above: Performed By: #### L 503.6005 #### [facility] [address] [place], [address] GFR/1.73 sq M.predicted among non-blacks MDRD (S/P/Bld) [Vol rate/Area] 56 mL/min/{1.73_m2} Low >60 [facility] Comment on above: Result Comment: Non- GFR Calc Performed By: #### L 503.6005 #### [facility] [address] [place], [address] Glucose [Mass/Vol] 74 mg/dL Normal 74-106 [facility] Comment on above: Performed By: #### L 503.6005 #### [facility] [address] [place], [address] Potassium [Moles/Vol] 3.5 mmol/L Normal 3.5-5.1 [facility] Comment on above: Performed By: #### L 503.6005 #### [facility] [address] [place], [address] Sodium [Moles/Vol] 142 mmol/L Normal 136-145 [facility] Comment on above: Performed By: #### L 503.6005 #### [facility] [address] [place], [address] Urea nitrogen [Mass/Vol] 15 mg/dL Normal 7-18 [facility] Comment on above: Performed By: #### L 503.6005 #### [facility] [address] [place], [address] Brain/Head without Contrasto n 04-07-2024 Brain/Head without Contrast [facility] Imaging Services [address] [place] [address] Brain/Head without Contrast MR#: [id number] Acct: [id number] Name: ELZA CHU Rep #: [id number] : 1945 F 78 From: Andre Colón PCP: Dr. Kolby Kim MD Status: [facility] Study: Brain/Head without Contrast Date of Exam: 04/22 Exam# [id number] Ordering Dr: Benito Ewing DO [id number] INDICATION: head injury EXAMINATION: CT BRAIN - CT Head or Brain W/O Contrast Injection TECHNIQUE: Multiple axial images were obtained of the head without intravenous contrast. A radiation dose optimization technique was used for this scan. IV Contrast dosage and agent: None. RADIATION DOSAGE (If Supplied By Facility): CTDIvol = ( 44.99 ) mGy, DLP = ( 796.11 ) mGycm COMPARISON: 01/19/2022 __ FINDINGS: HEMISPHERES: 1. The cerebral parenchyma, ventricular system, subarachnoid spaces have normal configuration and density. There is a normal gyral pattern. There is normal prado/white differentiation. No midline shift.. 2. Diffuse involutional change and chronic microvascular deep white matter disease. 3. No intraparenchymal mass, hemorrhage, or acute territorial infarct. CEREBELLUM - BRAINSTEM: The cerebellum, brainstem, basilar and suprasellar cisterns have normal appearance. No Chiari malformation. PITUITARY: Infundibulum and pituitary have normal configuration. Midline structures appear normal. CSF SPACES: Appropriate for age. No hydrocephalus. Basal cisterns are patent. VESSELS: 1. Moderate vascular calcifications involving the cavernous carotid vessels. 2. No hyperdense vascular signs noted.. ORBITS AND PARANASAL SINUSES: 1. Normal appearance of the bony orbits. Normal appearance of the globes and retrobulbar soft tissues.. 2. Extensive sinus disease with findings consistent with bilateral uncinectomies infundibulotomies nasal antral windows and internal ethmoidectomy. Extensive residual mucosal thickening within the remaining ethmoid air cells, sphenoid sinuses and significant RIGHT mastoid air cell disease. Moderate LEFT maxillary sinus mucosal thickening. BONY ELEMENTS: Bony elements of the cranial vault, facial skeleton and skull base have normal appearance. SCALP AND SOFT TISSUES: Normal appearance of the soft tissues of the scalp and the visualized face OTHER: None ASPECTS Score for Acute Strokes: 10 CT/Brain/Head without Contrast IMPRESSION: 1. Stable exam. 2. Diffuse involutional change and chronic microvascular deep white matter disease. 3. No intracranial mass, hemorrhage or acute territorial infarct. 4. Extensive sinus disease and postoperative changes involving the ethmoid and maxillary sinuses. Electronically Signed: Andre Morales MD at 21:16 EDT , CC: Dr. Benito Ewing DO; Dr. Kolby Kim MD Ventilating Expert: Signed Normal [facility] CBC W/Diff, Automatedon 09-0 9-4 Absolute Lymph 0.85 X10 3/uL Normal 0.83-4.51 [facility] Comment on above: Performed By: #### L 503.6005 #### [facility] Laboratory [address] [place], [address] Absolute Neut 8.0 X10 3/uL High 2.0-7.7 [facility] Comment on above: Performed By: #### L 503.6005 #### [facility] [address] [place], [address] Basophils/100 WBC (Bld) 0.3 % Normal 0-1 [facility] Comment on above: Performed By: #### L 503.6005 #### [facility] [address] [place], [address] Eosinophils/100 WBC (Bld) 2.9 % Normal 0-5 [facility] Comment on above: Performed By: #### L 503.6005 #### [facility] [address] [place], [address] Erythrocyte distribution width (RBC) [Ratio] 13.7 % Normal 11.6-14.6 [facility] Comment on above: Performed By: #### L 503.6005 #### [facility] [address] [place], [address] Hematocrit (Bld) [Volume fraction] 35.4 % Low 37-47 [facility] Comment on above: Performed By: #### L 503.6005 #### [facility] [address] [place], [address] Hemoglobin (Bld) [Mass/Vol] 10.5 g/dL Low 12.0-15.0 [facility] Comment on above: Performed By: #### L 503.6005 #### [facility] [address] [place], [address] IG% 0.400 Normal 0.0-0.9 [facility] Comment on above: Result Comment: IG% - Immature Granulocytes (promyelocytes, myelocytes and metamyelocytes) > 1%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 [address] [place], [address] EPI,SQUAMOUS 0 SEEN Normal 5-10 [facility] Comment on above: Order Comment: CLEAN CATCH Performed By: #### L 500.4050, L100.0100, L300.3900 #### [facility] [address] [place], [address] Mucus Ql (Urine sed) 0 SEEN Normal [facility] Comment on above: Order Comment: CLEAN CATCH Performed By: #### L 500.4050, L100.0100, L300.3900 #### [facility] [address] [place], [address] WBC 0 SEEN Normal 0-5 [facility] Comment on above: Order Comment: CLEAN CATCH Performed By: #### L 500.4050, L100.0100, L300.3900 #### [facility] [place], [address] XR Chest PA and Lateralon IMPRESSION: Small bilateral pleural effusions and very large hiatal hernia. A follow-up exam is recommended. Ventilating Expert: PEYTON Transcribe Date/Time: Jan 05 2024 8:52A Dictated by : ABEL CERNA MD This examination was interpreted and the report reviewed and electronically signed by: ABEL CERNA MD on Jan 05 2024 8:54AM [facility] DIVISION OF RADIOLOGY * * *Final Report* * * DATE OF EXAM: Jan 02 2024 3:30PM WOX 5291 - XR CHEST 2V FRONTAL/LAT / PROCEDURE REASON: Chest pain, unspecified type * * * * Physician Interpretation * * * * EXAMINATION: CHEST RADIOGRAPH (2 VIEW FRONTAL & LATERAL) CLINICAL HISTORY: Chest pain, unspecified type MQ: XC2_6 EXAM DATE/TIME: 01/02/2024 3:30 PM COMPARISON: 02/20/2022. RESULT: Lines, tubes, and devices: None. Lungs and pleura: There is poor inflation of the lungs with mild atelectatic changes in both lung bases. There are small bilateral pleural effusions. No consolidation. No lung mass. No pneumothorax. Cardiomediastinal silhouette: There is a large hiatal hernia. 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 There is probable mild cardiomegaly. Bones and soft tissues: There is marked kyphosis of the thoracic spine. DIVISION OF RADIOLOGY Provider, [facility] - 01/05/2024 * * *Final Report* * * DATE OF EXAM: Jan 02 2024 3:30PM WOX 5291 - XR CHEST 2V FRONTAL/LAT / PROCEDURE REASON: Chest pain, unspecified type * * * * Physician Interpretation * * * * EXAMINATION: CHEST RADIOGRAPH (2 VIEW FRONTAL & LATERAL) CLINICAL HISTORY: Chest pain, unspecified type MQ: XC2_6 EXAM DATE/TIME: 01/02/2024 3:30 PM COMPARISON: 02/20/2022. RESULT: Lines, tubes, and devices: None. Lungs and pleura: There is poor inflation of the lungs with mild atelectatic changes in both lung bases. There are small bilateral pleural effusions. No consolidation. No lung mass. No pneumothorax. Cardiomediastinal silhouette: There is a large hiatal hernia. 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 There is probable mild cardiomegaly. Bones and soft tissues: There is marked kyphosis of the thoracic spine. IMPRESSION IMPRESSION: Small bilateral pleural effusions and very large hiatal hernia. A follow-up exam is recommended. Ventilating Expert: PSCB Transcribe Date/Time: Jan 05 2024 8:52A Dictated by : ABEL CERNA MD This examination was interpreted and the report reviewed and electronically signed by: ABEL CERNA MD on Jan 05 2024 8:54AM EST [facility] XR Chest PA and LateralOrder ed By: [facility] Provider on 01-05-2024 [facility] Urinalysis complete panel (U )on 01-03-2024 Bacteria LM.HPF (Urine sed) [#/Area] Negative Negative /HPF [facility] Bilirubin Ql (U) Negative Negative [facility] Clarity (Unsp spec) Clear Clear [facility] Color (U) Yellow Yellow [facility] Epithelial cells LM.HPF (Urine sed) [#/Area] None Seen /HPF [facility] Glucose Test strip (U) [Mass/Vol] Negative Negative [facility] Hemoglobin Ql (U) Negative Negative [facility] Hyaline casts (Urine sed) [#/Area] 0 /[LPF] 0 /LPF [facility] Ketones Ql (U) Negative Negative [facility] Leukocyte esterase Test strip Ql (U) Negative Negative [facility] Nitrite Ql (U) Negative Negative [facility] pH (U) 6.0 [pH] NINF - 8.5 [facility] Protein (U) [Mass/Vol] Negative Negative Cl [facility] RBC LM.HPF (Urine sed) [#/Area] 0-2 /HPF 0-2 /HPF [facility] Specific gravity (U) [Rel density] 1.010 1.005 - 1.030 [facility] Urobilinogen Ql (U) 0.2 EU/dL 0.2-1.0 EU/dL [facility] WBC LM.HPF (Urine sed) [#/Area] 0-5 /HPF 0-5 /HPF [facility] This test was developed and its performance characteristics determined by [facility]'s [facility] [place] ([facility]). It has not been cleared or approved by the FDA. [facility] is regulated under CLIA as qualified to perform high-complexity testing. This test is used for clinical purposes. It should not be regarded as investigational or for research. [facility] CBC W Auto Differential pane l (Bld)on 01-02-2024 Basophils (Bld) [#/Vol] 0.04 10*3/uL [facility] Basophils/100 WBC (Bld) 0.5 % C [facility] Differential cell count method Nom (Bld) Auto [facility] Eosinophils (Bld) [#/Vol] 0.19 10*3/uL [facility] Eosinophils/100 WBC (Bld) 2.4 % [facility] Erythrocyte distribution width (RBC) [Ratio] 13.4 % 11.5 - 15.0 % [facility] Hematocrit (Bld) [Volume fraction] 42.1 % 36.0 - 46.0 % [facility] Hemoglobin (Bld) [Mass/Vol] 12.3 g/dL 11.5 - 15.5 g/dL [facility] Immature granulocytes (Bld) [#/Vol] [facility] Immature granulocytes/100 WBC (Bld) 0.1 % [facility] Interpretation and review of laboratory results Abnormal [facility] Lymphocytes (Bld) [#/Vol] 0.85 10*3/uL Low [facility] Lymphocytes/100 WBC (Bld) 10.7 % [facility] MCH (RBC) [Entitic mass] 27.4 pg 26. 0 - 34.0 pg [facility] MCHC (RBC) [Mass/Vol] 29.2 g/dL Low 30.5 - 36.0 g/dL [facility] MCV (RBC) [Entitic vol] 93.8 fL 80.0 - 100.0 fL [facility] Monocytes (Bld) [#/Vol] 0.54 10*3/uL [facility] Monocytes/100 WBC (Bld) 6.8 % C [facility] Neutrophils (Bld) [#/Vol] 6.28 10*3/uL [facility] Neutrophils/100 WBC (Bld) 79.5 % [facility] Nucleated RBC (Bld) [#/Vol] NINF [facility] Nucleated RBC/100 WBC (Bld) [Ratio] 0.0 % /100 WBC [facility] Platelet mean volume (Bld) [Entitic vol] 10.3 fL 9.0 - 12.7 fL [facility] Platelets (Bld) [#/Vol] 292 10*3/uL [facility] RBC (Bld) [#/Vol] 4.49 10*6/uL 3.90 - 5.2 0 m/uL [facility] WBC (Bld) [#/Vol] 7.91 10*3/uL [facility] INR (POC)on 01-02-2024 INR Coag (PPP) [Relative time] 2.7 {INR} High 0.8 - 1.2 [facility] Internal Quality Check Acceptable [facility] Interpretation and review of laboratory results Abnormal [facility] Location:[facility], [address] [place] [address], [place], [place], [id number] [place] [address] POINT OF CARE [facility] XR Chest PA and Lateralon Radiology Study observation (narrative) [facility] XR ESOPHAGRAMon 04-26-2023 Radiology Result ACTIONABLE Abnormal [facility] XR ESOPHAGRAM * * *Final Report* * * DATE OF EXAM: Apr 26 2023 10:56AM JOHN [id number] - XR ESOPHAGRAM / PROCEDURE REASON: R13.10-Dysphagia, unspecified type * * * * Physician Interpretation * * * * EXAM: XR ESOPHAGRAM EXAM DATE: 04/26/2023 10:56 AM CLINICAL HISTORY: Dysphagia, unspecified type COMPARISON: CT abdomen and pelvis 09/18/2021 TECHNIQUE: A single contrast esophagram was performed. The patient ingested 300 mL of OMNIPAQUE 300 without difficulty. Total Air Kerma: 14.5 mGy Total Fluoroscopy Time: 2:12 min:sec RESULT: [employer] image save of the chest demonstrates small to moderate right and trace left pleural effusions. Linear opacity in the left midlung likely subsegmental atelectasis. Mediastinal postoperative changes. Aortic calcifications. Tertiary contractions are noted in the upper esophagus. There is a region of relative nonspecific luminal narrowing in the proximal esophagus at the level of T1/T2 of approximately 1 cm. Otherwise no abnormal impression or filling defect identified. Large hiatal hernia containing the majority of the stomach. No definite Schatzki ring identified. Large hiatal hernia containing the majority of the stomach. No definite associated Schatzki ring. There is a nonspecific area of relative luminal narrowing in the proximal esophagus at the level of T1-T2. Gastroesophageal reflux was not able to be elicited throughout this exam. IMPRESSION: Large hiatal hernia containing the majority of the stomach. No definite associated Schatzki ring. There is a nonspecific area of relative luminal narrowing in the proximal esophagus at the level of T1-T2. This can be better evaluated with endoscopy. Gastroesophageal reflux was not able to be elicited throughout this exam. ACTIONABLE RESULT: FOLLOW-UP Acuity: Actionable Findings: [place] Routing Code: GI_1 Recommendation: Unlisted Recommendation (see report) Time Frame: At the discretion of the clinical team. COMMUNICATION: Results will be communicated with the ordering provider via [employer] staff message or phone message by Imaging Support Services within 2 business days of report finalization. --END OF FINDING-- Algorithms for management of incidental imaging findings can be found on the [facility] Intranet Sharepoint site at: [email or web address] [email or web address] [email or web address] [email or web address] [email or web address] Ventilating Expert: PEYTON Transcribe Date/Time: Apr 26 2023 3:28P Dictated by : JOSEPH BRUCE MD This examination was interpreted and the report reviewed and electronically signed by: JOSEPH BRUCE MD on Apr 26 2023 3:37PM EST [id number] ACTIONABLE Invalid Interpretation Code [facility] Absolute lymphocyte countOrd ered By: Jose Yap on 04-11-2023 Lymphocytes Auto (Unsp spec) [#/Vol] 0.75 10*3/uL 0.83-4.51 [facility] Basophil percentageOrdered B y: Jose Yap on 04-11-2023 Basophils/100 WBC (Bld) 0.7 % 0-1 [facility] Chloride [Moles/Vol] 103 mmol/L 98-107 [facility] Eosinophils/100 WBC (Bld) 4.6 % 0-5 [facility] Glucose [Mass/Vol] 84 mg/dL 74-106 [facility] Neutrophils (Bld) [#/Vol] 4.5 10*3/uL 2.0-7.7 [facility] Neutrophils/100 WBC (Bld) 73.8 % 47-70 [facility] Potassium [Moles/Vol] 3.6 mmol/L 3.5-5.1 [facility] Sodium [Moles/Vol] 142 mmol/L 136-145 [facility] WBC (Bld) [#/Vol] 6.1 10*3/uL 4.4-11.0 [facility] Blood erythrocytes count (nu mber/volume)Ordered By: Jose Yap on 04-11-2023 RBC (Bld) [#/Vol] 4.40 10*6/uL 4.2-5.4 [facility] Blood hemoglobin measurement (mass/volume)Ordered By: Jose Yap on 04-11-2023 Hemoglobin (Bld) [Mass/Vol] 12.0 g/dL 12.0-15.0 [facility] Blood lymphocytes/100 leukoc ytesOrdered By: Jose Yap on 04-11-2023 Lymphocytes/100 WBC (Bld) 12.4 % 19-41 [facility] Blood monocytes/100 leukocyt esOrdered By: Jose Yap on 04-11-2023 Monocytes/100 WBC (Bld) 8.2 % 0-10 [facility] Blood platelet mean volumeOr dered By: Jose Yap on 04-11-2023 Platelet mean volume (Bld) [Entitic vol] 10.2 fL 6.2-12.0 [facility] Determination of erythrocyte mean corpuscular volume (MCV)Ordered By: Jose Yap on 04-11-2023 MCV (RBC) [Entitic vol] 93.9 fL 81-99 [facility] Hematocrit Auto (Bld) [Volum e fraction]Ordered By: Jose Yap on 04-11-2023 Hematocrit (Bld) [Volume fraction] 41.3 % 37-47 [facility] Laboratory - Chemistry and C hemistry - challengeOrdered By: Jose Yap on 04-11-2023 CO2 [Moles/Vol] 38.0 mmol/L 21.0-32.0 [facility] Urea nitrogen/Creatinine [Mass ratio] 21.1 mg/mg 10-20 [facility] Laboratory - Hematology and Cell countsOrdered By: Jose Yap on 04-11-2023 Erythrocyte distribution width (RBC) [Entitic vol] 50.1 fL 35.1-43.9 [facility] Erythrocyte distribution width (RBC) [Ratio] 14.5 % 11.6-14.6 [facility] Immature granulocytes/100 WBC (Bld) 0.300 % 0.0-0.9 [facility] Comment on above: IG% - Immature Granu locytes (promyelocytes, myelocytes and metamyelocytes) > 1% indicates that a LEFT SHIFT is Present. MCH (RBC) [Entitic mass] 27.3 pg 27.0-32.0 [facility] Nucleated RBC/100 WBC (Bld) [Ratio] 0 % 0-5 [facility] MCHC Auto (RBC) [Mass/Vol]Or dered By: oJse Yap on 04-11-2023 MCHC (RBC) [Mass/Vol] 29.1 g/dL 32-36 [facility] No Panel InformationOrdered By: Jose Yap on 04-11-2023 Estimated GFR (MDRD) Amer 78 mL/min >60 [facility] Comment on above: GFR Calc Estimated GFR (MDRD) Non-Af Amer 64 mL/min >60 [facility] Comment on above: Non- GFR Calc Platelets bldOrdered By: Shanthi Yap on 04-11-2023 Platelets (Bld) [#/Vol] 250 10*3/uL 150-450 [facility] Serum or plasma calcium lisa urement (mass/volume)Ordered By: Jose Yap on 04-11-2023 Calcium [Mass/Vol] 9.3 mg/dL 8.5-10.1 [facility] Serum or plasma creatinine m easurement (mass/volume)Ordered By: Jose Yap on 04-11-2023 Creatinine [Mass/Vol] 0.90 mg/dL 0.55-1.02 [facility] Comment on above: The validity of the calculated GFR & GFRAA in patients over 70 years has not been determined. Clinical correlation is essential. Serum or plasma urea nitroge n measurement (mass/volume)Ordered By: Jose Yap on 04-11-2023 Urea nitrogen [Mass/Vol] 19 mg/dL 7-18 [facility] Thin prep Papanicolaou smear with manual screeningOrdered By: Jose Yap on 04-11-2023 Thin prep Papanicolaou smear with manual screening 1 5-15 [facility] Absolute lymphocyte countOrd ered By: Forrest Smiley on 03-08-2023 Lymphocytes Auto (Unsp spec) [#/Vol] 0.72 10*3/uL 0.83-4.51 [facility] Basophil percentageOrdered B y: Forrest Smiley on 03-08-2023 Basophils/100 WBC (Bld) 0.6 % 0-1 [facility] Chloride [Moles/Vol] 101 mmol/L 98-107 [facility] Eosinophils/100 WBC (Bld) 6.9 % 0-5 [facility] Glucose [Mass/Vol] 93 mg/dL 74-106 [facility] Neutrophils (Bld) [#/Vol] 5.1 10*3/uL 2.0-7.7 [facility] [facility] [place] Neutrophils/100 WBC (Bld) 73.7 % 47-70 [facility] [place] Potassium [Moles/Vol] 3.5 mmol/L 3.5-5.1 [facility] [place] Sodium [Moles/Vol] 142 mmol/L 136-145 [facility] WBC (Bld) [#/Vol] 6.9 10*3/uL 4.4-11.0 [facility] Blood erythrocytes count (nu mber/volume)Ordered By: Forrest Smiley on 03-08-2023 RBC (Bld) [#/Vol] 4.30 10*6/uL 4.2-5.4 [facility] Blood hemoglobin measurement (mass/volume)Ordered By: Forrest Smiley on 03-08-2023 Hemoglobin (Bld) [Mass/Vol] 11.5 g/dL 12.0-15.0 [facility] [place] Blood lymphocytes/100 leukoc ytesOrdered By: Forrest Smiley on 03-08-2023 Lymphocytes/100 WBC (Bld) 10.4 % 19-41 [facility] [place] Blood monocytes/100 leukocyt esOrdered By: Forrest Smiley on 03-08-2023 Monocytes/100 WBC (Bld) 8.1 % 0-10 [facility] Blood platelet mean volumeOr dered By: Forrest Smiley on 03-08-2023 Platelet mean volume (Bld) [Entitic vol] 10.2 fL 6.2-12.0 [facility] [place] Determination of erythrocyte mean corpuscular volume (MCV)Ordered By: Forrest Smiley on 03-08-2023 MCV (RBC) [Entitic vol] 93.0 fL 81-99 [facility] Hematocrit Auto (Bld) [Volum e fraction]Ordered By: Forrest Smiley on 03-08-2023 Hematocrit (Bld) [Volume fraction] 40.0 % 37-47 [facility] [place] INR in Blood by Coagulation assayOrdered By: Forrest Smiley on 03-08-2023 INR Coag (Bld) [Relative time] 1.5 {INR} [facility] [place] Influenza virus A and B and SARS-CoV-2 (COVID-19) Ag panel - Upper respiratory specimOrdered By: Forrest Smiley on 03-08-2023 SARS-CoV-2 (COVID-19) RNA DELFINA+probe Ql (Resp) [facility] [place] Laboratory - Chemistry and C hemistry - challengeOrdered By: Forrest Smiley on 03-08-2023 CO2 [Moles/Vol] 40.0 mmol/L 21.0-32.0 [facility] [place] Natriuretic peptide B (Bld) [Mass/Vol] 135.0 pg/mL 0-100 [facility] [place] Urea nitrogen/Creatinine [Mass ratio] 26.3 mg/mg 10-20 [facility] [place] Laboratory - CoagulationOrde red By: Forrest Smiley on 03-08-2023 PT Coag (PPP) [Time] 18.6 s 11.7-14.9 [facility] Laboratory - Hematology and Cell countsOrdered By: Forrest Smiley on 03-08-2023 Erythrocyte distribution width (RBC) [Entitic vol] 50.0 fL 35.1-43.9 [facility] [place] Erythrocyte distribution width (RBC) [Ratio] 14.6 % 11.6-14.6 [facility] [place] Immature granulocytes/100 WBC (Bld) 0.300 % 0.0-0.9 [facility] [place] Comment on above: IG% - Immature Granu locytes (promyelocytes, myelocytes and metamyelocytes) > 1% indicates that a LEFT SHIFT is Present. MCH (RBC) [Entitic mass] 26.7 pg 27.0-32.0 [facility] [place] Nucleated RBC/100 WBC (Bld) [Ratio] 0 % 0-5 [facility] [place] MCHC Auto (RBC) [Mass/Vol]Or dered By: Forrest Smiley on 03-08-2023 MCHC (RBC) [Mass/Vol] 28.8 g/dL 32-36 [facility] [place] No Panel InformationOrdered By: Forrest Smiley on 03-08-2023 Estimated GFR (MDRD) Amer 85 mL/min >60 [facility] [place] Comment on above: GFR Calc Estimated GFR (MDRD) Non-Af Amer 70 mL/min >60 [facility] [place] Comment on above: Non- GFR Calc Troponin I High Sensitivity 18 pg/mL 3.0-54.0 [facility] [place] Comment on above: Please Note: New Lisy t Units and Gender Specific Reference Ranges. For more information see Policy Stat Procedure [place] High Sensitivity Troponin (TNIH) and attachments. Platelets bldOrdered By: Blayne Smiley on 03-08-2023 Platelets (Bld) [#/Vol] 298 10*3/uL 150-450 [facility] [place] Serum or plasma calcium lisa urement (mass/volume)Ordered By: Forrest Smiley on 03-08-2023 Calcium [Mass/Vol] 9.1 mg/dL 8.5-10.1 [facility] Serum or plasma creatinine m easurement (mass/volume)Ordered By: Forrest Smiley on 03-08-2023 Creatinine [Mass/Vol] 0.84 mg/dL 0.55-1.02 [facility] [place] Comment on above: The validity of the calculated GFR & GFRAA in patients over 70 years has not been determined. Clinical correlation is essential. Serum or plasma urea nitroge n measurement (mass/volume)Ordered By: Forrest Smiley on 03-08-2023 Urea nitrogen [Mass/Vol] 22 mg/dL 7-18 [facility] [place] Thin prep Papanicolaou smear with manual screeningOrdered By: Forrest Smiley on 03-08-2023 Thin prep Papanicolaou smear with manual screening 1 5-15 [facility] [place] CBC W Auto Differential pane l (Bld)on 02-27-2023 Basophils (Bld) [#/Vol] 0.05 10*3/uL <0.11 k/uL [facility] Basophils/100 WBC (Bld) 0.5 % [facility] Differential cell count method Nom (Bld) Auto [facility] Eosinophils (Bld) [#/Vol] 0.50 10*3/uL High <0.46 k/uL [facility] Eosinophils/100 WBC (Bld) 5.2 % [facility] Erythrocyte distribution width (RBC) [Ratio] 14.3 % 11.5 - 15.0 % [facility] Hematocrit (Bld) [Volume fraction] 40.6 % 36.0 - 46.0 % [facility] Hemoglobin (Bld) [Mass/Vol] 11.8 g/dL 11.5 - 15.5 g/dL [facility] Immature granulocytes (Bld) [#/Vol] 0.04 10*3/uL <0.10 k/uL [facility] Immature granulocytes/100 WBC (Bld) 0.4 % [facility] Lymphocytes (Bld) [#/Vol] 0.75 10*3/uL Low 1.00 - 4.00 k/uL [facility] Lymphocytes/100 WBC (Bld) 7.8 % [facility] MCH (RBC) [Entitic mass] 26.8 pg 26. 0 - 34.0 pg [facility] MCHC (RBC) [Mass/Vol] 29.1 g/dL Low 30.5 - 36.0 g/dL [facility] MCV (RBC) [Entitic vol] 92.3 fL 80.0 - 100.0 fL [facility] Monocytes (Bld) [#/Vol] 0.63 10*3/uL <0.87 k/uL [facility] Monocytes/100 WBC (Bld) 6.6 % [facility]ils (Bld[facility] [#/Vol] 7.64 10*3/uL High 1.45 - 7.50 k/uL [facility] Neutrophils/100 WBC (Bld) 79.5 % [facility] Nucleated RBC (Bld) [#/Vol] <0.01 k/uL [facility] Nucleated RBC/100 WBC (Bld) [Ratio] 0.0 /100 WBC [facility] Platelet mean volume (Bld) [Entitic vol] 11.1 fL 9.0 - 12.7 fL [facility] Platelets (Bld) [#/Vol] 318 10*3/uL 150 - 400 k/uL [facility] RBC (Bld) [#/Vol] 4.40 10*6/uL 3.90 - 5.2 0 m/uL [facility] WBC (Bld) [#/Vol] 9.61 10*3/uL 3.70 - 11. 00 k/uL [facility] Comprehensive metabolic 2000 panelon 02-27-2023 Albumin [Mass/Vol] 3.4 g/dL Low 3.9 - 4.9 g/dL [facility] ALP [Catalytic activity/Vol] 78 U/L 34 - 123 U/L [facility] ALT [Catalytic activity/Vol] 31 U/L 7 - 38 U/L [facility] Anion gap [Moles/Vol] 9 mmol/L 9 - 18 mmol/L [facility] AST [Catalytic activity/Vol] 29 U/L 13 - 35 U/L [facility] Bilirubin [Mass/Vol] 0.3 mg/dL 0.2 - 1 .3 mg/dL [facility] Calcium [Mass/Vol] 9.9 mg/dL 8.5 - 10. 2 mg/dL [facility] Chloride [Moles/Vol] 97 mmol/L 97 - 10 5 mmol/L [facility] CO2 [Moles/Vol] 35 mmol/L High 22 - 30 mmol/L [facility] Creatinine [Mass/Vol] 1.05 mg/dL High 0.58 - 0.96 mg/dL [facility] Estimated Glomerular Filtration Rate 54 mL/min/1.73m Low >=60 mL/min/1.73m [facility] Glucose [Mass/Vol] 87 mg/dL 74 - 99 mg/dL [facility] Potassium [Moles/Vol] 4.2 mmol/L 3.7 - 5.1 mmol/L [facility] Protein [Mass/Vol] 5.8 g/dL Low 6.3 - 8.0 g/dL [facility] Sodium [Moles/Vol] 141 mmol/L 136 - 144 mmol/L [facility] Urea nitrogen [Mass/Vol] 26 mg/dL High 7 - 21 mg/d L [facility] PREALBUMIN BLDon 02-27-2023 Prealbumin [Mass/Vol] 17 mg/dL 17 - 3 6 mg/dL [facility] Absolute lymphocyte countOrd ered By: Dr. Smiley on 12-26-2022 Lymphocytes Auto (Unsp spec) [#/Vol] 0.93 10*3/uL 0.83-4.51 [facility] [place] Basophil percentageOrdered B y: Dr. Smiley on 12-26-2022 Basophil percentage 78 mg/dL 74-106 [facility] Basophil percentage 140 mmol/L 136-145 [facility] Basophil percentage 3.4 mmol/L 3.5-5.1 [facility] Basophil percentage 98 mmol/L 98-107 [facility] Basophils (Bld) [#/Vol] 16.2 10*3/uL 4.4-11.0 [facility] [place] Basophils (Bld) [#/Vol] 14.1 10*3/uL 2.0-7.7 [facility] [place] Basophils/100 WBC (Bld) 87.2 % 47-70 [facility] Basophils/100 WBC (Bld) 0.8 % 0-5 [facility] Basophils/100 WBC (Bld) 0.4 % 0-1 [facility] Basophil percentageOrdered B y: Forrest Smiley on 12-26-2022 Chloride [Moles/Vol] 98 mmol/L 98-107 [facility] Eosinophils/100 WBC (Bld) 0.8 % 0-5 [facility] [place] Glucose [Mass/Vol] 78 mg/dL 74-106 [facility] Neutrophils (Bld) [#/Vol] 14.1 10*3/uL 2.0-7.7 [facility] [place] Neutrophils/100 WBC (Bld) 87.2 % 47-70 [facility] [place] Potassium [Moles/Vol] 3.4 mmol/L 3.5-5.1 [facility] [place] Sodium [Moles/Vol] 140 mmol/L 136-145 [facility] WBC (Bld) [#/Vol] 16.2 10*3/uL 4.4-11.0 [facility] Blood erythrocytes count (nu mber/volume)Ordered By: Dr. mSiley on 12-26-2022 RBC (Bld) [#/Vol] 4.49 10*6/uL 4.2-5.4 [facility] Blood hemoglobin measurement (mass/volume)Ordered By: Dr. Smiley on 12-26-2022 Hemoglobin (Bld) [Mass/Vol] 12.2 g/dL 12.0-15.0 [facility] [place] Blood lymphocytes/100 leukoc ytesOrdered By: Dr. Smiley on 12-26-2022 Lymphocytes/100 WBC (Bld) 5.8 % 19-41 [facility] [place] Blood monocytes/100 leukocyt esOrdered By: Dr. Smiley on 12-26-2022 Monocytes/100 WBC (Bld) 5.2 % 0-10 [facility] Blood platelet mean volumeOr dered By: Dr. Smiley on 12-26-2022 Platelet mean volume (Bld) [Entitic vol] 9.5 fL 6.2-12.0 [facility] [place] Determination of erythrocyte mean corpuscular volume (MCV)Ordered By: Dr. Smiley on 12-26-2022 MCV (RBC) [Entitic vol] 89.8 fL 81-99 [facility] Hematocrit Auto (Bld) [Volum e fraction]Ordered By: Dr. Smiley on 12-26-2022 Hematocrit (Bld) [Volume fraction] 40.3 % 37-47 [facility] [place] INR in Blood by Coagulation assayOrdered By: Dr. Smiley on 12-26-2022 INR Coag (Bld) [Relative time] 2.5 {INR} [facility] [place] Laboratory - Chemistry and C hemistry - challengeOrdered By: Forrest Smiley on 12-26-2022 CO2 [Moles/Vol] 35.0 mmol/L 21.0-32.0 [facility] [place] Natriuretic peptide B (Bld) [Mass/Vol] 151.4 pg/mL 0-100 [facility] [place] Urea nitrogen/Creatinine [Mass ratio] 17.1 mg/mg 10-20 [facility] [place] Laboratory - CoagulationOrde red By: Forrest Smiley on 12-26-2022 PT Coag (PPP) [Time] 27.3 s 11.7-14.9 [facility] Laboratory - Hematology and Cell countsOrdered By: Forrest Smiley on 12-26-2022 Erythrocyte distribution width (RBC) [Entitic vol] 44.5 fL 35.1-43.9 [facility] [place] Erythrocyte distribution width (RBC) [Ratio] 13.6 % 11.6-14.6 [facility] [place] Immature granulocytes/100 WBC (Bld) 0.600 % 0.0-0.9 [facility] [place] Comment on above: IG% - Immature Granu locytes (promyelocytes, myelocytes and metamyelocytes) > 1% indicates that a LEFT SHIFT is Present. MCH (RBC) [Entitic mass] 27.2 pg 27.0-32.0 [facility] [place] Nucleated RBC/100 WBC (Bld) [Ratio] 0 % 0-5 [facility] [place] MCHC Auto (RBC) [Mass/Vol]Or dered By: Dr. Smiley on 12-26-2022 MCHC (RBC) [Mass/Vol] 30.3 g/dL 32-36 [facility] [place] No Panel InformationOrdered By: Forrest Smiley on 12-26-2022 Estimated Creatinine Clearance Calc 28.46 ml/min [facility] [place] Estimated GFR (MDRD) Amer 58 mL/min >60 [facility] [place] Comment on above: GFR Calc Estimated GFR (MDRD) Non-Af Amer 48 mL/min >60 [facility] [place] Comment on above: Non- GFR Calc Troponin I High Sensitivity 24 pg/mL 3.0-54.0 [facility] [place] Comment on above: Please Note: New Lisy t Units and Gender Specific Reference Ranges. For more information see Policy Stat Procedure [place] High Sensitivity Troponin (TNIH) and attachments. No Panel InformationOrdered By: Dr. Smiley on 12-26-2022 27.2 pg 27.0-32.0 [facility] [place] 13.6 % 11.6-14.6 [facility] 44.5 fl 35.1-43.9 [facility] 0.600 % 0.0-0.9 [facility] 0 % 0-5 [facility] [place] 27.3 SECONDS 11.7-14.9 [facility] [place] 48 mL/min >60 [facility] 58 mL/min >60 [facility] [place] 28.46 ml/min [facility] 17.1 RATIO 10-20 [facility] 24 pg/mL 3.0-54.0 [facility] 35.0 mmol/L 21.0-32.0 [facility] 151.4 pg/mL 0-100 [facility] [place] Platelets bldOrdered By: Dr. Smiley on 12-26-2022 Platelets (Bld) [#/Vol] 430 10*3/uL 150-450 [facility] [place] Serum or plasma calcium lisa urement (mass/volume)Ordered By: Dr. Smiley on 12-26-2022 Calcium [Mass/Vol] 9.7 mg/dL 8.5-10.1 [facility] Serum or plasma creatinine m easurement (mass/volume)Ordered By: Dr. Smiley on 12-26-2022 Creatinine [Mass/Vol] 1.17 mg/dL 0.55-1.02 [facility] [place] Comment on above: The validity of the calculated GFR & GFRAA in patients over 70 years has not been determined. Clinical correlation is essential. Serum or plasma urea nitroge n measurement (mass/volume)Ordered By: Dr. Smiley on 12-26-2022 Urea nitrogen [Mass/Vol] 20 mg/dL 7-18 [facility] [place] Thin prep Papanicolaou smear with manual screeningOrdered By: Dr. Smiley on 12-26-2022 Thin prep Papanicolaou smear with manual screening 7 5-15 [facility] [place] CNPNon 11-30-2022 CNPN Telephone (AGSPINE3) ELZA CHU ([id number]) 1945 F NFR Date Time Provider Department 11/30/22 TREVA [facility] During your visit today, we recorded the following information about you: Lamin Anderson 11/30/2022 9:02 AM Signed Due to provider vacation the 01/29/2023 appointment needs to be rescheduled. Called patient and left detailed message regarding this. Left number for them to call back when ready to reschedule. Allergies As of Date: 11/30/2022 Noted Allergy Reaction ADHESIVE 11/30/2008 2 - Rash Comments: Blistering at site of application. DEXTROMETHORPHAN 08/06/2018 14 - Other: See Comments 1 - Mental Status Change RISPERIDONE 11/29/2021 14 - Other: See Comments SULFA (SULFONAMIDE ANTIBIOTICS) 03/11/2002 14 - Other: See Comments Comments: Renal dysfunction. Childhood reaction. Generalized swelling CELEBREX (CELECOXIB) 11/14/2006 14 - Other: See Comments Comments: Migraine headache. ARICEPT (DONEPEZIL) 04/29/2020 17 - Myalgia Comments: muscle pain and difficulty walking COMPAZINE (PROCHLORPERAZINE) 04/23/2012 14 - Other: See Comments Comments: low BP CRESTOR (ROSUVASTATIN CALCIUM) 01/18/2016 8 - GI Upset GABAPENTIN 04/26/2016 5 - Intolerance Comments: Confusion, when coupled with norco LIPITOR (ATORVASTATIN CALCIUM) 01/18/2016 17 - Myalgia LISINOPRIL 04/23/2012 3 - Cough No Latex Allergy [Other] 11/25/2002 OXYCODONE 03/11/2002 9 - Itching PENICILLINS 03/11/2002 14 - Other: See Comments Comments: Heart palpitations. No rash or itch. Can take cephalosporins PROZAC (FLUOXETINE HCL) 03/25/2014 14 - Other: See Comments Comments: hallucinating ULTRAM (TRAMADOL HCL) 04/23/2012 9 - Itching CODEINE 03/11/2002 9 - Itching Date Reviewed: 11/19/2022 Reviewed by: Treva Chirinos APRN.SODA TESTER - Fully Assessed Reason for Visit: Appointment [186] Cmt: 01/29/2023 reschedule Prescriptions as of 11/30/2022 - LORazepam (ATIVAN) 1 mg tablet Take 0.5 tablets by mouth twice daily for 90 days. - metoprolol succinate ER (TOPROL XL) 50 mg 24 hr tablet Take 2 tablets by mouth once daily. - amLODIPine (NORVASC) 2.5 mg tablet Take 1 tablet by mouth once daily. - iv contrast (will be provided with radiology test) CT Chest W -Inject, intravenously, once for 1 dose.No IV access, insert saline lock prior to the beginning of sedation, infusion, injection of imaging exam. Discontinue saline lock post exam. If Pt. has a central line or IVAD, may access for administration according to line specific nursing protocol. Once exam is complete flush line and de-access according to line specific nursing protocol in the CT contrast administration guidelines link. - ergocalciferol 50,000 unit capsule (VITAMIN D2, DRISDOL) Take 1 capsule by mouth every other week. - baclofen (LIORESAL) 10 mg tablet Take 1 tablet by mouth three times daily as needed (muscle spasms). - montelukast (SINGULAIR) 10 mg tablet Take 1 tablet by mouth daily at bedtime. - diclofenac (VOLTAREN) 1 % topical gel Apply 4 g to affected area four times daily. - pregabalin (LYRICA) 25 mg capsule Take 1 capsule by mouth daily at bedtime for 30 days. - BREO ELLIPTA 200-25 mcg/dose inhaler INHALE 1 PUFF BY MOUTH ONCE DAILY - PARoxetine (PAXIL) 20 mg tablet Take 1 tablet by mouth once daily. - ferrous sulfate 325 mg (65 mg iron) tablet Take 1 tablet by mouth twice daily with meals. - SPIRIVA RESPIMAT 2.5 mcg/actuation inhaler INHALE 2 SPRAYS BY MOUTH ONCE DAILY AT APPROXIMATELY THE SAME TIME EACH DAY - furosemide (LASIX) 40 mg tablet Take 1 tablet by mouth once daily. - buPROPion XL (WELLBUTRIN XL) 150 mg 24 hr tablet Take 1 tablet by mouth once daily. - warfarin (COUMADIN) 3 mg tablet 2.5 mg MW and 4.5 mg all other days or as directed - warfarin (COUMADIN) 2.5 mg tablet 2.5 mg MWF and 4.5 mg all other days or as directed - pantoprazole DR (PROTONIX) 40 mg tablet Take 1 tablet by mouth twice daily. - potassium chloride ER (K-DUR, KLOR-CON) 20 mEq tablet Take 1 tablet by mouth once daily. - albuterol (PROVENTIL) 2.5 mg /3 mL (0.083 %) nebulizer solution Use 3 mL via nebulizer every 6 hours as needed for wheezing/shortness of breath. DX: J45.40 Hx of moderate persistent Asthma - warfarin (COUMADIN) 2.5 mg tablet 2.5 mg daily or as directed - amiodarone (PACERONE) 200 mg tablet Take 100 mg by mouth once daily. - albuterol HFA (PROAIR HFA) 90 mcg/actuation inhaler Inhale 2 Puffs as instructed every 4 hours as needed. - budesonide-formoterol (SYMBICORT) 160-4.5 mcg/actuation inhaler Inhale 2 Puffs as instructed twice daily. - acetaminophen (TYLENOL EXTRA STRENGTH) 500 mg tablet Take 1 tablet by mouth every 4 hours as needed for Pain. RANGE FREQ? - Nebulizer NEBULIZER FOR HOME USE and necessary supplies. DX: Hypoxemia, Pneumonia and Hemoptisis - triamcinolone acetonide (NASACORT AQ) 55 mcg nasal inhaler Us (more content not included)... Normal [facility] CNCOon 11-21-[address] [facility] CNPNon 11-16-2022 CNPN Telephone (AGSPINE3) ELZA CHU ([id number]) 1945 F NFR Date Time Provider Department 11/16/22 GILBERTO VIRK AGSPINE3 During your visit today, we recorded the following information about you: Tiki Reyna LPN 11/16/2022 9:56 AM Signed Attempted to contact patient to follow up after procedure. Left a brief message asking patient to return call if they have any questions or concerns. Tiki Reyna LPN Allergies As of Date: 11/16/2022 Noted Allergy Reaction ADHESIVE 11/30/2008 2 - Rash Comments: Blistering at site of application. DEXTROMETHORPHAN 08/06/2018 14 - Other: See Comments 1 - Mental Status Change RISPERIDONE 11/29/2021 14 - Other: See Comments SULFA (SULFONAMIDE ANTIBIOTICS) 03/11/2002 14 - Other: See Comments Comments: Renal dysfunction. Childhood reaction. Generalized swelling CELEBREX (CELECOXIB) 11/14/2006 14 - Other: See Comments Comments: Migraine headache. ARICEPT (DONEPEZIL) 04/29/2020 17 - Myalgia Comments: muscle pain and difficulty walking COMPAZINE (PROCHLORPERAZINE) 04/23/2012 14 - Other: See Comments Comments: low BP CRESTOR (ROSUVASTATIN CALCIUM) 01/18/2016 8 - GI Upset GABAPENTIN 04/26/2016 5 - Intolerance Comments: Confusion, when coupled with norco LIPITOR (ATORVASTATIN CALCIUM) 01/18/2016 17 - Myalgia LISINOPRIL 04/23/2012 3 - Cough No Latex Allergy [Other] 11/25/2002 OXYCODONE 03/11/2002 9 - Itching PENICILLINS 03/11/2002 14 - Other: See Comments Comments: Heart palpitations. No rash or itch. Can take cephalosporins PROZAC (FLUOXETINE HCL) 03/25/2014 14 - Other: See Comments Comments: hallucinating ULTRAM (TRAMADOL HCL) 04/23/2012 9 - Itching CODEINE 03/11/2002 9 - Itching Date Reviewed: 11/14/2022 Reviewed by: Vandana Sims - Fully Assessed Reason for Visit: Procedure Follow Up [1139] Cmt: 11/14/22 Prescriptions as of 11/16/2022 - metoprolol succinate ER (TOPROL XL) 50 mg 24 hr tablet Take 2 tablets by mouth once daily. - amLODIPine (NORVASC) 2.5 mg tablet Take 1 tablet by mouth once daily. - iv contrast (will be provided with radiology test) CT Chest W -Inject, intravenously, once for 1 dose.No IV access, insert saline lock prior to the beginning of sedation, infusion, injection of imaging exam. Discontinue saline lock post exam. If Pt. has a central line or IVAD, may access for administration according to line specific nursing protocol. Once exam is complete flush line and de-access according to line specific nursing protocol in the CT contrast administration guidelines link. - ergocalciferol 50,000 unit capsule (VITAMIN D2, DRISDOL) Take 1 capsule by mouth every other week. - baclofen (LIORESAL) 10 mg tablet Take 1 tablet by mouth three times daily as needed (muscle spasms). - montelukast (SINGULAIR) 10 mg tablet Take 1 tablet by mouth daily at bedtime. - diclofenac (VOLTAREN) 1 % topical gel Apply 4 g to affected area four times daily. - pregabalin (LYRICA) 25 mg capsule Take 1 capsule by mouth daily at bedtime for 30 days. - BREO ELLIPTA 200-25 mcg/dose inhaler INHALE 1 PUFF BY MOUTH ONCE DAILY - PARoxetine (PAXIL) 20 mg tablet Take 1 tablet by mouth once daily. - LORazepam (ATIVAN) 1 mg tablet Take 0.5 tablets by mouth twice daily for 90 days. - ferrous sulfate 325 mg (65 mg iron) tablet Take 1 tablet by mouth twice daily with meals. - SPIRIVA RESPIMAT 2.5 mcg/actuation inhaler INHALE 2 SPRAYS BY MOUTH ONCE DAILY AT APPROXIMATELY THE SAME TIME EACH DAY - furosemide (LASIX) 40 mg tablet Take 1 tablet by mouth once daily. - buPROPion XL (WELLBUTRIN XL) 150 mg 24 hr tablet Take 1 tablet by mouth once daily. - warfarin (COUMADIN) 3 mg tablet 2.5 mg MW and 4.5 mg all other days or as directed - warfarin (COUMADIN) 2.5 mg tablet 2.5 mg MWF and 4.5 mg all other days or as directed - pantoprazole DR (PROTONIX) 40 mg tablet Take 1 tablet by mouth twice daily. - potassium chloride ER (K-DUR, KLOR-CON) 20 mEq tablet Take 1 tablet by mouth once daily. - albuterol (PROVENTIL) 2.5 mg /3 mL (0.083 %) nebulizer solution Use 3 mL via nebulizer every 6 hours as needed for wheezing/shortness of breath. DX: J45.40 Hx of moderate persistent Asthma - warfarin (COUMADIN) 2.5 mg tablet 2.5 mg daily or as directed - amiodarone (PACERONE) 200 mg tablet Take 100 mg by mouth once daily. - albuterol HFA (PROAIR HFA) 90 mcg/actuation inhaler Inhale 2 Puffs as instructed every 4 hours as needed. - budesonide-formoterol (SYMBICORT) 160-4.5 mcg/actuation inhaler Inhale 2 Puffs as instructed twice daily. - acetaminophen (TYLENOL EXTRA STRENGTH) 500 mg tablet Take 1 tablet by mouth every 4 hours as needed for Pain. RANGE FREQ? - Nebulizer NEBULIZER FOR HOME USE and necessary supplies. DX: Hypoxemia, Pneumonia and Hemoptisis - triamcinolone acetonide (NASACORT AQ) 55 mcg nasal inhaler Use 1 [place] (more content not included)... Normal [facility] Absolute lymphocyte countOrd ered By: Keily Narayan on 11-13-2022 Lymphocytes Auto (Unsp spec) [#/Vol] 0.75 10*3/uL 0.83-4.51 [facility] Basophil percentageOrdered B y: Keily Narayan on 11-13-2022 Basophil percentage 92 mg/dL 74-106 [facility] Basophil percentage 137 mmol/L 136-145 [facility] Basophil percentage 3.6 mmol/L 3.5-5.1 [facility] Basophil percentage 103 mmol/L 98-107 [facility] Basophils (Bld) [#/Vol] 10.7 10*3/uL 4.4-11.0 [facility] Basophils (Bld) [#/Vol] 9.0 10*3/uL 2.0-7.7 [facility] Basophils/100 WBC (Bld) 84.0 % 47-70 [facility] Basophils/100 WBC (Bld) 1.3 % 0-5 [facility] Basophils/100 WBC (Bld) 0.4 % 0-1 [facility] Chloride [Moles/Vol] 103 mmol/L 98-107 [facility] Eosinophils/100 WBC (Bld) 1.3 % 0-5 [facility] Glucose [Mass/Vol] 92 mg/dL 74-106 [facility] Neutrophils (Bld) [#/Vol] 9.0 10*3/uL 2.0-7.7 [facility] Neutrophils/100 WBC (Bld) 84.0 % 47-70 [facility] Potassium [Moles/Vol] 3.6 mmol/L 3.5-5.1 [facility] Sodium [Moles/Vol] 137 mmol/L 136-145 [facility] WBC (Bld) [#/Vol] 10.7 10*3/uL 4.4-11.0 [facility] Blood erythrocytes count (nu mber/volume)Ordered By: Keily Busch on 11-13-2022 RBC (Bld) [#/Vol] 4.48 10*6/uL 4.2-5.4 [facility] Blood hemoglobin measurement (mass/volume)Ordered By: Keily Busch on 11-13-2022 Hemoglobin (Bld) [Mass/Vol] 12.6 g/dL 12.0-15.0 [facility] Blood lymphocytes/100 leukoc ytesOrdered By: Keily Busch on 11-13-2022 Lymphocytes/100 WBC (Bld) 7.0 % 19-41 [facility] Blood monocytes/100 leukocyt esOrdered By: Keily Busch on 11-13-2022 Monocytes/100 WBC (Bld) 6.6 % 0-10 [facility] Blood platelet mean volumeOr dered By: Keily Busch on 11-13-2022 Platelet mean volume (Bld) [Entitic vol] 9.9 fL 6.2-12.0 [facility] Determination of erythrocyte mean corpuscular volume (MCV)Ordered By: Keily Busch on 11-13-2022 MCV (RBC) [Entitic vol] 92.2 fL 81-99 [facility] Hematocrit Auto (Bld) [Volum e fraction]Ordered By: Keily Busch on 11-13-2022 Hematocrit (Bld) [Volume fraction] 41.3 % 37-47 [facility] INR in Blood by Coagulation assayOrdered By: Keily Busch on 11-13-2022 INR Coag (Bld) [Relative time] 1.7 {INR} [facility] Laboratory - Chemistry and C hemistry - challengeOrdered By: Keily Busch on 11-13-2022 CO2 [Moles/Vol] 34.0 mmol/L 21.0-32.0 [facility] Urea nitrogen/Creatinine [Mass ratio] 17.4 mg/mg 10-20 [facility] Laboratory - CoagulationOrde red By: Keily Busch on 11-13-2022 PT Coag (PPP) [Time] 19.4 s 11.7-14.9 [facility] Laboratory - Hematology and Cell countsOrdered By: Keily Busch on 11-13-2022 Erythrocyte distribution width (RBC) [Entitic vol] 46.8 fL 35.1-43.9 [facility] Erythrocyte distribution width (RBC) [Ratio] 13.8 % 11.6-14.6 [facility] Immature granulocytes/100 WBC (Bld) 0.700 % 0.0-0.9 [facility] Comment on above: IG% - Immature Granu locytes (promyelocytes, myelocytes and metamyelocytes) > 1% indicates that a LEFT SHIFT is Present. MCH (RBC) [Entitic mass] 28.1 pg 27.0-32.0 [facility] Nucleated RBC/100 WBC (Bld) [Ratio] 0 % 0-5 [facility] MCHC Auto (RBC) [Mass/Vol]Or dered By: Keily Busch on 11-13-2022 MCHC (RBC) [Mass/Vol] 30.5 g/dL 32-36 [facility] No Panel InformationOrdered By: Keily Busch on 11-13-2022 Estimated GFR (MDRD) Amer 89 mL/min >60 [facility] Comment on above: GFR Calc Estimated GFR (MDRD) Non-Af Amer 73 mL/min >60 [facility] Comment on above: Non- GFR Calc Troponin I High Sensitivity 22 pg/mL 3.0-54.0 [facility] Comment on above: Please Note: New Lisy t Units and Gender Specific Reference Ranges. For more information see Policy Stat Procedure [place] High Sensitivity Troponin (TNIH) and attachments. 28.1 pg 27.0-32.0 [facility] 13.8 % 11.6-14.6 [facility] 46.8 fl 35.1-43.9 [facility] 0.700 % 0.0-0.9 [facility] 0 % 0-5 [facility] 19.4 SECONDS 11.7-14.9 [facility] 73 mL/min >60 [facility] 89 mL/min >60 [facility] 17.4 RATIO 10-20 [facility] 22 pg/mL 3.0-54.0 [facility] 34.0 mmol/L 21.0-32.0 [facility] Platelets bldOrdered By: Ana Busch on 11-13-2022 Platelets (Bld) [#/Vol] 353 10*3/uL 150-450 [facility] Serum or plasma calcium lisa urement (mass/volume)Ordered By: Keily Busch on 11-13-2022 Calcium [Mass/Vol] 9.9 mg/dL 8.5-10.1 [facility] Serum or plasma creatinine m easurement (mass/volume)Ordered By: Keily Busch on 11-13-2022 Creatinine [Mass/Vol] 0.80 mg/dL 0.55-1.02 [facility] Comment on above: The validity of the calculated GFR & GFRAA in patients over 70 years has not been determined. Clinical correlation is essential. Serum or plasma urea nitroge n measurement (mass/volume)Ordered By: Keily Busch on 11-13-2022 Urea nitrogen [Mass/Vol] 14 mg/dL 7-18 [facility] Thin prep Papanicolaou smear with manual screeningOrdered By: Keily Busch on 11-13-2022 Thin prep Papanicolaou smear with manual screening 0 5-15 [facility] CNPNon 11-10-2022 CNPN Telephone (AGSPINE3) ELZA CHU ([id number]) 1945 F NFR Date Time Provider Department 11/10/22 TREVA CHIRINOS [facility] During your visit today, we recorded the following information about you: MAUDE Myers 11/10/2022 2:51 PM Signed Per your notes on 11/07/22 patient needed to call and give results for WBC. Patient stated on 11/06 it was 14.4 and on 11/08 it was 11. Patient would like to know if she can still have her injection. Please advise Chloe Patrick [place] to Dr. Virk, Dr. Loomis, Kait Modi PA-C, [employer] [facility] P: [id number] / F: [phone] / Treva Chirinos APRN.PERLA 11/10/2022 3:08 PM Signed This is up to the physician performing the injection to set the parameters. Please make sure physician reviews prior to injection Treva Chirinos APRN.PERLA Patrick, MAUDE 11/10/2022 3:[address] Virk please review patient WBC to see if she can have her injection on 11/14. Chloe Patrick Mud Mixer Helper to Dr. Virk, Dr. Loomis, Kait Modi PA-C, [employer] [facility] P: [phone] / F: [phone] / Gilberto Virk MD 11/13/2022 10:49 AM Signed Pt was noted to have an elevated WBC of 14.4 during recent hospitalization from 11/01-11/03/22. This was noted to be improving to WBC of 11.97 with her last set of labs on 11/08/22. Due to the significant improvement in WBC count without intervention, and no infectious etiology documented during her hospitalization or her followup after discharge on 11/06/22, pt was noted to not require treatment for any infectious. Pt is asked to monitor for fevers/chills/dysuria or any other symptoms that are concerning for her. She would further benefit from repeat CBC to ensure normalization of her WBC. Order placed for repeat labs, pt should have them completed today at any [facility] facility prior to her procedure tomorrow. Gilberto Virk MD 11/13/2022 10:49 AM Signed Addended by: GILBERTO VIRK on: 11/13/2022 10:49 AM Modules accepted: Orders Treva Chirinos APRN.PERLA 11/13/2022 10:52 AM Signed Please relay message to patient from Dr. Moose Chirinos APRN.PERLA Patrick PSS 11/13/2022 2:43 PM Signed Spoke to patient advised she will need to do another set of blood work to see what her WBC is before her injection. Patient stated she will go up there today to get this done. Chloe Patrick [place] to Dr. Virk, Dr. Loomis, Kait Modi PA-C, [employer] [facility] P: [id number] / F: [phone] / [email or web address] Allergies As of Date: 11/10/2022 Noted Allergy Reaction ADHESIVE 11/30/2008 2 - Rash Comments: Blistering at site of application. DEXTROMETHORPHAN 08/06/2018 14 - Other: See Comments 1 - Mental Status Change RISPERIDONE 11/29/2021 14 - Other: See Comments SULFA (SULFONAMIDE ANTIBIOTICS) 03/11/2002 14 - Other: See Comments Comments: Renal dysfunction. Childhood reaction. Generalized swelling CELEBREX (CELECOXIB) 11/14/2006 14 - Other: See Comments Comments: Migraine headache. ARICEPT (DONEPEZIL) 04/29/2020 17 - Myalgia Comments: muscle pain and difficulty walking COMPAZINE (PROCHLORPERAZINE) 04/23/2012 14 - Other: See Comments Comments: low BP CRESTOR (ROSUVASTATIN CALCIUM) 01/18/2016 8 - GI Upset GABAPENTIN 04/26/2016 5 - Intolerance Comments: Confusion, when coupled with norco LIPITOR (ATORVASTATIN CALCIUM) 01/18/2016 17 - Myalgia LISINOPRIL 04/23/2012 3 - Cough No Latex Allergy [Other] 11/25/2002 OXYCODONE 03/11/2002 9 - Itching PENICILLINS 03/11/2002 14 - Other: See Comments Comments: Heart palpitations. No rash or itch. 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 - amLODIPine (NORVASC) 2.5 mg tablet Take 1 tablet by mouth once daily. - iv contrast (will be provided with radiology test) CT Chest W -Inject, intravenously, once for 1 dose.No IV access, insert saline lock prior to the beginning of sedation, infusion, injection of imaging exam. Discontinue saline lock post exam. If Pt. has a central line or IVAD, may access for administration according to line specific nursing protocol. Once exam is complete flush line and de-ac (more content not included)... Normal [facility] PT panel Coag (PPP)on 2022 INR Coag (PPP) [Relative time] 2.6 {INR} High 0.9 - 1.3 [facility] PT Coag (PPP) [Time] 24.7 s High <13.[address] [facility] Absolute lymphocyte countOrd ered By: Dr. Liz on 11-03-2022 Lymphocytes Auto (Unsp spec) [#/Vol] 0.71 10*3/uL 0.83-4.51 [facility] Basophil percentageOrdered B y: Dr. Liz on 11-03-2022 Basophil percentage 87 mg/dL 74-106 [facility] Basophil percentage 140 mmol/L 136-145 [facility] Basophil percentage 3.5 mmol/L 3.5-5.1 [facility] Basophil percentage 104 mmol/L 98-107 [facility] Basophils (Bld) [#/Vol] 9.1 10*3/uL 4.4-11.0 [facility] Basophils (Bld) [#/Vol] 7.4 10*3/uL 2.0-7.7 [facility] Basophils/100 WBC (Bld) 0.3 % 0-1 [facility] Basophils/100 WBC (Bld) 81.6 % 47-70 [facility] Basophils/100 WBC (Bld) 1.6 % 0-5 [facility] Chloride [Moles/Vol] 104 mmol/L 98-107 [facility] Eosinophils/100 WBC (Bld) 1.6 % 0-5 [facility] Glucose [Mass/Vol] 87 mg/dL 74-106 [facility] Neutrophils (Bld) [#/Vol] 7.4 10*3/uL 2.0-7.7 [facility] Neutrophils/100 WBC (Bld) 81.6 % 47-70 [facility] Potassium [Moles/Vol] 3.5 mmol/L 3.5-5.1 [facility] Sodium [Moles/Vol] 140 mmol/L 136-145 [facility] WBC (Bld) [#/Vol] 9.1 10*3/uL 4.4-11.0 [facility] Blood erythrocytes count (nu mber/volume)Ordered By: Dr. Liz on 11-03-2022 RBC (Bld) [#/Vol] 4.18 10*6/uL 4.2-5.4 [facility] Blood hemoglobin measurement (mass/volume)Ordered By: Dr. Liz on 11-03-2022 Hemoglobin (Bld) [Mass/Vol] 11.6 g/dL 12.0-15.0 [facility] Blood lymphocytes/100 leukoc ytesOrdered By: Dr. Liz on 11-03-2022 Lymphocytes/100 WBC (Bld) 7.8 % 19-41 [facility] Blood monocytes/100 leukocyt esOrdered By: Dr. Liz on 11-03-2022 Monocytes/100 WBC (Bld) 7.8 % 0-10 [facility] Blood platelet mean volumeOr dered By: Dr. Liz on 11-03-2022 Platelet mean volume (Bld) [Entitic vol] 10.2 fL 6.2-12.0 [facility] Determination of erythrocyte mean corpuscular volume (MCV)Ordered By: Dr. Liz on 11-03-2022 MCV (RBC) [Entitic vol] 93.1 fL 81-99 [facility] Hematocrit Auto (Bld) [Volum e fraction]Ordered By: Dr. Liz on 11-03-2022 Hematocrit (Bld) [Volume fraction] 38.9 % 37-47 [facility] INR in Blood by Coagulation assayOrdered By: Dr. Liz on 11-03-2022 INR Coag (Bld) [Relative time] 2.7 {INR} [facility] Laboratory - Chemistry and C hemistry - challengeOrdered By: Dr. Liz on 11-03-2022 CO2 [Moles/Vol] 33.0 mmol/L 21.0-32.0 [facility] Urea nitrogen/Creatinine [Mass ratio] 14.4 mg/mg 10-20 [facility] Laboratory - CoagulationOrde red By: Dr. Liz on 11-03-2022 PT Coag (PPP) [Time] 27.9 s 11.7-14.9 [facility] Laboratory - Hematology and Cell countsOrdered By: Dr. Liz on 11-03-2022 Erythrocyte distribution width (RBC) [Entitic vol] 48.6 fL 35.1-43.9 [facility] Erythrocyte distribution width (RBC) [Ratio] 14.2 % 11.6-14.6 [facility] Immature granulocytes/100 WBC (Bld) 0.900 % 0.0-0.9 [facility] Comment on above: IG% - Immature Granu locytes (promyelocytes, myelocytes and metamyelocytes) > 1% indicates that a LEFT SHIFT is Present. MCH (RBC) [Entitic mass] 27.8 pg 27.0-32.0 [facility] Nucleated RBC/100 WBC (Bld) [Ratio] 0 % 0-5 [facility] MCHC Auto (RBC) [Mass/Vol]Or dered By: Dr. Liz on 11-03-2022 MCHC (RBC) [Mass/Vol] 29.8 g/dL 32-36 [facility] Comment on above: Delta: 31.6 on 11/02 No Panel InformationOrdered By: Dr. Liz on 11-03-2022 Estimated Creatinine Clearance Calc 37.60 ml/min [facility] Estimated GFR (MDRD) Amer 78 mL/min >60 [facility] Comment on above: GFR Calc Estimated GFR (MDRD) Non-Af Amer 64 mL/min >60 [facility] Comment on above: Non- GFR Calc 27.8 pg 27.0-32.0 [facility] 14.2 % 11.6-14.6 [facility] 48.6 fl 35.1-43.9 [facility] 0.900 % 0.0-0.9 [facility] 0 % 0-5 [facility] 27.9 SECONDS 11.7-14.9 [facility] 64 mL/min >60 [facility] 78 mL/min >60 [facility] 37.60 ml/min [facility] 14.4 RATIO 10-20 [facility] 33.0 mmol/L 21.0-32.0 [facility] Platelets bldOrdered By: Dr. Liz on 11-03-2022 Platelets (Bld) [#/Vol] 323 10*3/uL 150-450 [facility] Serum or plasma calcium lisa urement (mass/volume)Ordered By: Dr. Liz on 11-03-2022 Calcium [Mass/Vol] 9.2 mg/dL 8.5-10.1 [facility] Serum or plasma creatinine m easurement (mass/volume)Ordered By: Dr. Liz on 11-03-2022 Creatinine [Mass/Vol] 0.90 mg/dL 0.55-1.02 [facility] Comment on above: The validity of the calculated GFR & GFRAA in patients over 70 years has not been determined. Clinical correlation is essential. Serum or plasma urea nitroge n measurement (mass/volume)Ordered By: Dr. Liz on 11-03-2022 Urea nitrogen [Mass/Vol] 13 mg/dL 7-18 [facility] Thin prep Papanicolaou smear with manual screeningOrdered By: Dr. Liz on 11-03-2022 Thin prep Papanicolaou smear with manual screening 3 5-15 [facility] Basophil percentageOrdered B y: Dr. Olvera on 11-02-2022 Basophil percentage 3.0 mg/dL 2.5-4.9 [facility] Basophil percentage 5.3 g/dL 6.4-8.2 [facility] Basophil percentage 0.40 mg/dL 0.20-1.00 [facility] Bilirubin [Mass/Vol] 0.40 mg/dL 0.20-1.00 [facility] Comment on above: For patients on eltr ombopag therapy, use of Dimension [place] TBIL is not recommended. Protein [Mass/Vol] 5.3 g/dL 6.4-8.2 [facility] Laboratory - Chemistry and C hemistry - challengeOrdered By: Dr. Olvera on 11-02-2022 ALP [Catalytic activity/Vol] 70 U/L 45- [facility] ALT [Catalytic activity/Vol] 12 U/L - [facility] Globulin (S) [Mass/Vol] 3.0 g/dL 2.2-4.2 [facility] Magnesium [Mass/Vol] 1.8 mg/dL 1.6-2.6 [facility] No Panel InformationOrdered By: Dr. Olvera on 11-02-2022 Thyroid Stimulating Hormone (TSH) 1.76 uIU/mL 0.358-3.74 [facility] Troponin I High Sensitivity 287 pg/mL 3.0-54.0 [facility] Comment on above: CRITICAL VALUE VERIF IED. CALLED TO YALKAWVIROT05/06/23 0420 ERICA SANDOVAL.RESULTS READ BACK BY SAME . Please Note: New Test Units and Gender Specific Reference Ranges. For more information see Policy Stat Procedure [place] High Sensitivity Troponin (TNIH) and attachments. 3.0 g/dL 2.2-4.2 [facility] 287 pg/mL 3.0-54.0 [facility] 70 U/L [facility] 12 U/L [facility] 1.8 mg/dL 1.6-2.6 [facility] 1.76 uIU/mL 0.358-3.74 [facility] Serum or plasma albumin lisa urement (mass/volume)Ordered By: Dr. Olvera on 11-02-2022 Albumin [Mass/Vol] 2.3 g/dL 3.2-5.0 [facility] Serum or plasma albumin/glob ulin mass ratioOrdered By: Dr. Olvera on 04-06-2023 Albumin/Globulin [Mass ratio] 0.8 {ratio} 0.9-2.4 [facility] Thin prep Papanicolaou smear with manual screeningOrdered By: Dr. Olvera on 11-02-2022 Thin prep Papanicolaou smear with manual screening 14 U/L 15-37 [facility] Absolute lymphocyte countOrd ered By: ED PROVIDER on 11-01-2022 Lymphocytes Auto (Unsp spec) [#/Vol] 1.02 10*3/uL 0.83-4.51 [facility] Basophil percentageOrdered B y: ED PROVIDER on 11-01-2022 Basophils/100 WBC (Bld) 0.3 % 0-1 [facility] Chloride [Moles/Vol] 103 mmol/L 98-107 [facility] Eosinophils/100 WBC (Bld) 0.4 % 0-5 [facility] Glucose [Mass/Vol] 96 mg/dL 74-106 [facility] Neutrophils (Bld) [#/Vol] 17.4 10*3/uL 2.0-7.7 [facility] Neutrophils/100 WBC (Bld) 86.8 % 47-70 [facility] Potassium [Moles/Vol] 3.6 mmol/L 3.5-5.1 [facility] Sodium [Moles/Vol] 140 mmol/L 136-145 [facility] WBC (Bld) [#/Vol] 20.0 10*3/uL 4.4-11.0 [facility] Basophil percentageOrdered B y: Dr. Olvera on 11-01-2022 Bilirubin [Mass/Vol] 0.30 mg/dL 0.20-1.00 [facility] Comment on above: For patients on eltr ombopag therapy, use of Dimension [place] TBIL is not recommended. Protein [Mass/Vol] 6.8 g/dL 6.4-8.2 [facility] Blood erythrocytes count (nu mber/volume)Ordered By: ED PROVIDER on 11-01-2022 RBC (Bld) [#/Vol] 4.77 10*6/uL 4.2-5.4 [facility] Blood hemoglobin measurement (mass/volume)Ordered By: ED PROVIDER on 11-01-2022 Hemoglobin (Bld) [Mass/Vol] 13.4 g/dL 12.0-15.0 [facility] Blood lymphocytes/100 leukoc ytesOrdered By: ED PROVIDER on 11-01-2022 Lymphocytes/100 WBC (Bld) 5.1 % 19-41 [facility] Blood monocytes/100 leukocyt esOrdered By: ED PROVIDER on 11-01-2022 Monocytes/100 WBC (Bld) 6.5 % 0-10 [facility] Blood platelet mean volumeOr dered By: ED PROVIDER on 11-01-2022 Platelet mean volume (Bld) [Entitic vol] 10.2 fL 6.2-12.0 [facility] CNPNon 11-01-2022 CNPN Telephone (AGSPINE3) ELZA CHU ([id number]) 1945 F NFR Date Time Provider Department 11/01/22 GILBERTO VIRK AGSPINE3 During your visit today, we recorded the following information about you: MAUDE Myers 11/01/2022 12:30 PM Signed Spoke to patient she stated the MBB she had on 10/27 only provided less then 45 min of relief. Patient stated she is not having pain in her sciatic area. Patient is not sure if she should still get the 2nd MBB on 11/14. Please advise Chloe Patrick [employer]per to Dr. Virk, Dr. Loomis, Kait Modi PA-C, [employer] [facility] P: [id number] / F: [phone] / Gilberto Virk MD 11/01/2022 3:58 PM Signed Pt is advised that she should proceed with her second MBB's if she had greater than 50% relief even if for only short duration of time (pt reports less than 1 hour). Patient will have a full follow-up evaluation on 11/07/2022 where the results of her MBB's can be discussed further. Chloe Patrick PSS 11/02/2022 12:16 PM Signed Lvm advising of message below. Advised to call back with any questions. Chloe Patrick [place] to Dr. Virk, Dr. Loomis, Kait Modi PA-C, [employer] [facility] P: [id number] / F: [phone] / [email or web address] Allergies As of Date: 11/01/2022 Noted Allergy Reaction ADHESIVE 11/30/2008 2 - Rash Comments: Blistering at site of application. DEXTROMETHORPHAN 08/06/2018 14 - Other: See Comments 1 - Mental Status Change RISPERIDONE 11/29/2021 14 - Other: See Comments SULFA (SULFONAMIDE ANTIBIOTICS) 03/11/2002 14 - Other: See Comments Comments: Renal dysfunction. Childhood reaction. Generalized swelling CELEBREX (CELECOXIB) 11/14/2006 14 - Other: See Comments Comments: Migraine headache. ARICEPT (DONEPEZIL) 04/29/2020 17 - Myalgia Comments: muscle pain and difficulty walking COMPAZINE (PROCHLORPERAZINE) 04/23/2012 14 - Other: See Comments Comments: low BP CRESTOR (ROSUVASTATIN CALCIUM) 01/18/2016 8 - GI Upset GABAPENTIN 04/26/2016 5 - Intolerance Comments: Confusion, when coupled with norco LIPITOR (ATORVASTATIN CALCIUM) 01/18/2016 17 - Myalgia LISINOPRIL 04/23/2012 3 - Cough No Latex Allergy [Other] 11/25/2002 OXYCODONE 03/11/2002 9 - Itching PENICILLINS 03/11/2002 14 - Other: See Comments Comments: Heart palpitations. No rash or itch. Can take cephalosporins PROZAC (FLUOXETINE HCL) 03/25/2014 14 - Other: See Comments Comments: hallucinating ULTRAM (TRAMADOL HCL) 04/23/2012 9 - Itching CODEINE 03/11/2002 9 - Itching Date Reviewed: 10/27/2022 Reviewed by: June Mike LPN - Fully Assessed Reason for Visit: Patient Question [8067] Prescriptions as of 11/02/2022 - iv contrast (will be provided with radiology test) CT Chest W -Inject, intravenously, once for 1 dose.No IV access, insert saline lock prior to the beginning of sedation, infusion, injection of imaging exam. Discontinue saline lock post exam. If Pt. has a central line or IVAD, may access for administration according to line specific nursing protocol. Once exam is complete flush line and de-access according to line specific nursing protocol in the CT contrast administration guidelines link. - ergocalciferol 50,000 unit capsule (VITAMIN D2, DRISDOL) Take 1 capsule by mouth every other week. - baclofen (LIORESAL) 10 mg tablet Take 1 tablet by mouth three times daily as needed (muscle spasms). - montelukast (SINGULAIR) 10 mg tablet Take 1 tablet by mouth daily at bedtime. - diclofenac (VOLTAREN) 1 % topical gel Apply 4 g to affected area four times daily. - pregabalin (LYRICA) 25 mg capsule Take 1 capsule by mouth daily at bedtime for 30 days. - BREO ELLIPTA 200-25 mcg/dose inhaler INHALE 1 PUFF BY MOUTH ONCE DAILY - PARoxetine (PAXIL) 20 mg tablet Take 1 tablet by mouth once daily. - LORazepam (ATIVAN) 1 mg tablet Take 0.5 tablets by mouth twice daily for 90 days. - ferrous sulfate 325 mg (65 mg iron) tablet Take 1 tablet by mouth twice daily with meals. - SPIRIVA RESPIMAT 2.5 mcg/actuation inhaler INHALE 2 SPRAYS BY MOUTH ONCE DAILY AT APPROXIMATELY THE SAME TIME EACH DAY - furosemide (LASIX) 40 mg tablet Take 1 tablet by mouth once daily. - buPROPion XL (WELLBUTRIN XL) 150 mg 24 hr tablet Take 1 tablet by mouth once daily. - warfarin (COUMADIN) 3 mg tablet 2.5 mg MW and 4.5 mg all other days or as directed - warfarin (COUMADIN) 2.5 mg tablet 2.5 mg MWF and 4.5 mg all other days or as directed - pantoprazole DR (PROTONIX) 40 mg tablet Take 1 tablet by mouth twice daily. - potassium chloride ER (K-DUR, KLOR-CON) 20 mEq tablet Take 1 tablet by mouth once daily. - albuterol (PROVENTIL) 2.5 mg /3 mL (0.083 %) nebulizer solution Use 3 mL via nebulizer every 6 hours as needed for wheezing/shortness of breath. DX: J45.4 (more content not included)... Normal [facility] Determination of erythrocyte mean corpuscular volume (MCV)Ordered By: ED PROVIDER on 11-01-2022 MCV (RBC) [Entitic vol] 90.8 fL 81-99 [facility] Direct bilirubinOrdered By: Dr. Olvera on 11-01-2022 Bilirubin.direct [Mass/Vol] 0.12 mg/dL 0.00-0.30 [facility] Hematocrit Auto (Bld) [Volum e fraction]Ordered By: ED PROVIDER on 11-01-2022 Hematocrit (Bld) [Volume fraction] 43.3 % 37-47 [facility] INR in Blood by Coagulation assayOrdered By: Dr. Leavitt on 11-01-2022 INR Coag (Bld) [Relative time] 2.4 {INR} [facility] Laboratory - Chemistry and C hemistry - challengeOrdered By: Dr. Olvera on 11-01-2022 ALP [Catalytic activity/Vol] 88 U/L 45-117 [facility] ALT [Catalytic activity/Vol] 15 U/L 13-56 [facility] Globulin (S) [Mass/Vol] 3.9 g/dL 2.2-4.2 [facility] Laboratory - Chemistry and C hemistry - challengeOrdered By: ED PROVIDER on 11-01-2022 CO2 [Moles/Vol] 31.0 mmol/L 21.0-32.0 [facility] Urea nitrogen/Creatinine [Mass ratio] 14.6 mg/mg 10-20 [facility] Laboratory - Chemistry and C hemistry - challengeOrdered By: Dr. Leavitt on 11-01-2022 Natriuretic peptide B (Bld) [Mass/Vol] 102.0 pg/mL 0-100 [facility] Laboratory - CoagulationOrde red By: Dr. Leavitt on 11-01-2022 PT Coag (PPP) [Time] 25.8 s 11.7-14.9 [facility] Laboratory - Hematology and Cell countsOrdered By: ED PROVIDER on 11-01-2022 Erythrocyte distribution width (RBC) [Entitic vol] 47.2 fL 35.1-43.9 [facility] Erythrocyte distribution width (RBC) [Ratio] 14.2 % 11.6-14.6 [facility] Immature granulocytes/100 WBC (Bld) 0.900 % 0.0-0.9 [facility] Comment on above: IG% - Immature Granu locytes (promyelocytes, myelocytes and metamyelocytes) > 1% indicates that a LEFT SHIFT is Present. MCH (RBC) [Entitic mass] 28.1 pg 27.0-32.0 [facility] Nucleated RBC/100 WBC (Bld) [Ratio] 0 % 0-5 [facility] MCHC Auto (RBC) [Mass/Vol]Or dered By: ED PROVIDER on 11-01-2022 MCHC (RBC) [Mass/Vol] 30.9 g/dL 32-36 [facility] No Panel InformationOrdered By: Dr. Leavitt on 11-01-2022 Troponin I High Sensitivity 340 pg/mL 3.0-54.0 [facility] Comment on above: Critical Result(s) C alled at: 00:19:17 11/02/2022 by: ERICA Martin [employer]BOUND SALES REPRESENTATIVE. Results read back by same. Please Note: New Test Units and Gender Specific Reference Ranges. For more information see Policy Stat Procedure [place] High Sensitivity Troponin (TNIH) and attachments. 102.0 pg/mL 0-100 [facility] No Panel InformationOrdered By: ED PROVIDER on 11-01-2022 Estimated Creatinine Clearance Calc 23.50 ml/min [facility] Estimated GFR (MDRD) Amer 45 mL/min >60 [facility] Comment on above: GFR Calc Estimated GFR (MDRD) Non-Af Amer 37 mL/min >60 [facility] Comment on above: Non- GFR Calc Platelets bldOrdered By: ED PROVIDER on 11-01-2022 Platelets (Bld) [#/Vol] 384 10*3/uL 150-450 [facility] Serum or plasma albumin lisa urement (mass/volume)Ordered By: Dr. Olvera on 11-01-2022 Albumin [Mass/Vol] 2.9 g/dL 3.2-5.0 [facility] Serum or plasma calcium lisa urement (mass/volume)Ordered By: ED PROVIDER on 11-01-2022 Calcium [Mass/Vol] 9.5 mg/dL 8.5-10.1 [facility] Serum or plasma creatinine m easurement (mass/volume)Ordered By: ED PROVIDER on 11-01-2022 Creatinine [Mass/Vol] 1.44 mg/dL 0.55-1.02 [facility] Comment on above: The validity of the calculated GFR & GFRAA in patients over 70 years has not been determined. Clinical correlation is essential. Serum or plasma urea nitroge n measurement (mass/volume)Ordered By: ED PROVIDER on 11-01-2022 Urea nitrogen [Mass/Vol] 21 mg/dL 7-18 [facility] Thin prep Papanicolaou smear with manual screeningOrdered By: Dr. Olvera on 11-01-2022 Thin prep Papanicolaou smear with manual screening 16 U/L 15-37 [facility] Thin prep Papanicolaou smear with manual screeningOrdered By: ED PROVIDER on 11-01-2022 Thin prep Papanicolaou smear with manual screening 6 5-15 [facility] CNPNon 10-30-2022 CNPN Telephone ([id number]) ELZA CHU ([id number]) 1945 F NFR Date Time Provider Department 10/30/22 GILBERTO VIRK AGSPINE3 During your visit today, we recorded the following information about you: Antonia Desir MA 10/30/2022 1:24 PM Signed I called the patient to follow up after procedure. She stated today has been her worst day with pain since the procedure but will wait til tomorrow to see if she is feeling better. She has been taking tylenol and heating. Antonia Desir MA Allergies As of Date: 10/30/2022 Noted Allergy Reaction ADHESIVE 11/30/2008 2 - Rash Comments: Blistering at site of application. DEXTROMETHORPHAN 08/06/2018 14 - Other: See Comments 1 - Mental Status Change RISPERIDONE 11/29/2021 14 - Other: See Comments SULFA (SULFONAMIDE ANTIBIOTICS) 03/11/2002 14 - Other: See Comments Comments: Renal dysfunction. Childhood reaction. Generalized swelling CELEBREX (CELECOXIB) 11/14/2006 14 - Other: See Comments Comments: Migraine headache. ARICEPT (DONEPEZIL) 04/29/2020 17 - Myalgia Comments: muscle pain and difficulty walking COMPAZINE (PROCHLORPERAZINE) 04/23/2012 14 - Other: See Comments Comments: low BP CRESTOR (ROSUVASTATIN CALCIUM) 01/18/2016 8 - GI Upset GABAPENTIN 04/26/2016 5 - Intolerance Comments: Confusion, when coupled with norco LIPITOR (ATORVASTATIN CALCIUM) 01/18/2016 17 - Myalgia LISINOPRIL 04/23/2012 3 - Cough No Latex Allergy [Other] 11/25/2002 OXYCODONE 03/11/2002 9 - Itching PENICILLINS 03/11/2002 14 - Other: See Comments Comments: Heart palpitations. No rash or itch. Can take cephalosporins PROZAC (FLUOXETINE HCL) 03/25/2014 14 - Other: See Comments Comments: hallucinating ULTRAM (TRAMADOL HCL) 04/23/2012 9 - Itching CODEINE 03/11/2002 9 - Itching Date Reviewed: 10/27/2022 Reviewed by: June Mike LPN - Fully Assessed Reason for Visit: Procedure Follow Up [1139] Prescriptions as of 10/30/2022 - iv contrast (will be provided with radiology test) CT Chest W -Inject, intravenously, once for 1 dose.No IV access, insert saline lock prior to the beginning of sedation, infusion, injection of imaging exam. Discontinue saline lock post exam. If Pt. has a central line or IVAD, may access for administration according to line specific nursing protocol. Once exam is complete flush line and de-access according to line specific nursing protocol in the CT contrast administration guidelines link. - ergocalciferol 50,000 unit capsule (VITAMIN D2, DRISDOL) Take 1 capsule by mouth every other week. - baclofen (LIORESAL) 10 mg tablet Take 1 tablet by mouth three times daily as needed (muscle spasms). - montelukast (SINGULAIR) 10 mg tablet Take 1 tablet by mouth daily at bedtime. - diclofenac (VOLTAREN) 1 % topical gel Apply 4 g to affected area four times daily. - pregabalin (LYRICA) 25 mg capsule Take 1 capsule by mouth daily at bedtime for 30 days. - BREO ELLIPTA 200-25 mcg/dose inhaler INHALE 1 PUFF BY MOUTH ONCE DAILY - PARoxetine (PAXIL) 20 mg tablet Take 1 tablet by mouth once daily. - LORazepam (ATIVAN) 1 mg tablet Take 0.5 tablets by mouth twice daily for 90 days. - ferrous sulfate 325 mg (65 mg iron) tablet Take 1 tablet by mouth twice daily with meals. - SPIRIVA RESPIMAT 2.5 mcg/actuation inhaler INHALE 2 SPRAYS BY MOUTH ONCE DAILY AT APPROXIMATELY THE SAME TIME EACH DAY - furosemide (LASIX) 40 mg tablet Take 1 tablet by mouth once daily. - buPROPion XL (WELLBUTRIN XL) 150 mg 24 hr tablet Take 1 tablet by mouth once daily. - warfarin (COUMADIN) 3 mg tablet 2.5 mg MW and 4.5 mg all other days or as directed - warfarin (COUMADIN) 2.5 mg tablet 2.5 mg MWF and 4.5 mg all other days or as directed - pantoprazole DR (PROTONIX) 40 mg tablet Take 1 tablet by mouth twice daily. - potassium chloride ER (K-DUR, KLOR-CON) 20 mEq tablet Take 1 tablet by mouth once daily. - albuterol (PROVENTIL) 2.5 mg /3 mL (0.083 %) nebulizer solution Use 3 mL via nebulizer every 6 hours as needed for wheezing/shortness of breath. DX: J45.40 Hx of moderate persistent Asthma - warfarin (COUMADIN) 2.5 mg tablet 2.5 mg daily or as directed - amiodarone (PACERONE) 200 mg tablet Take 100 mg by mouth once daily. - albuterol HFA (PROAIR HFA) 90 mcg/actuation inhaler Inhale 2 Puffs as instructed every 4 hours as needed. - budesonide-formoterol (SYMBICORT) 160-4.5 mcg/actuation inhaler Inhale 2 Puffs as instructed twice daily. - acetaminophen (TYLENOL EXTRA STRENGTH) 500 mg tablet Take 1 tablet by mouth every 4 hours as needed for Pain. RANGE FREQ? - Nebulizer NEBULIZER FOR HOME USE and necessary supplies. DX: Hypoxemia, Pneumonia and Hemoptisis - triamcinolone acetonide (NASACORT AQ) 55 mcg nasal inhaler Use 1 [place] in the nose once daily. - pravastatin (PRAVACHOL) 80 mg tablet TAKE 1 TABLET BY MOUTH ONCE DAILY - aspirin 81 mg chewable t (more content not included)... Normal [facility] US KIDNEY/BLADDERon 10-31-19 [facility] PT panel Coag (PPP)on 2022 INR Coag (PPP) [Relative time] 2.7 {INR} High 0.9 - 1.3 [facility] PT Coag (PPP) [Time] 25.7 s High <13.[address] [facility] Absolute lymphocyte countOrd ered By: Dr. Villarreal on 10-23-2022 Lymphocytes Auto (Unsp spec) [#/Vol] 0.51 10*3/uL 0.83-4.51 [facility] Basophil percentageOrdered B y: Dr. Villarreal on 10-23-2022 Basophil percentage 112 mg/dL 74-106 [facility] Basophil percentage 143 mmol/L 136-145 [facility] Basophil percentage 3.6 mmol/L 3.5-5.1 [facility] Basophil percentage 106 mmol/L 98-107 [facility] Basophils (Bld) [#/Vol] 18.1 10*3/uL 4.4-11.0 [facility] Basophils (Bld) [#/Vol] 16.5 10*3/uL 2.0-7.7 [facility] Basophils/100 WBC (Bld) 0.1 % 0-1 [facility] Basophils/100 WBC (Bld) 91.3 % 47-70 [facility] Basophils/100 WBC (Bld) 0.0 % 0-5 [facility] Chloride [Moles/Vol] 106 mmol/L 98-107 [facility] Eosinophils/100 WBC (Bld) 0.0 % 0-5 [facility] Glucose [Mass/Vol] 112 mg/dL 74-106 [facility] Comment on above: Fasting Glucose resu lt from 100 to 125 mg/dL suggests IMPAIRED HOMEOSTASIS per A.D.A. criteria. Neutrophils (Bld) [#/Vol] 16.5 10*3/uL 2.0-7.7 [facility] Neutrophils/100 WBC (Bld) 91.3 % 47-70 [facility] Potassium [Moles/Vol] 3.6 mmol/L 3.5-5.1 [facility] Sodium [Moles/Vol] 143 mmol/L 136-145 [facility] WBC (Bld) [#/Vol] 18.1 10*3/uL 4.4-11.0 [facility] Blood erythrocytes count (nu mber/volume)Ordered By: Dr. Villarreal on 10-23-2022 RBC (Bld) [#/Vol] 4.41 10*6/uL 4.2-5.4 [facility] Blood hemoglobin measurement (mass/volume)Ordered By: Dr. Villarreal on 10-23-2022 Hemoglobin (Bld) [Mass/Vol] 12.3 g/dL 12.0-15.0 [facility] Blood lymphocytes/100 leukoc ytesOrdered By: Dr. Villarreal on 10-23-2022 Lymphocytes/100 WBC (Bld) 2.8 % 19-41 [facility] Blood manual differential co mment interpretation (narrative result)Ordered By: Dr. Villarreal on 10-23-2022 Manual differential comment Eduardo (Bld) [Interp] COMMENT [facility] Comment on above: LYMPHOPENIA Blood monocytes/100 leukocyt esOrdered By: Dr. Villarreal on 10-23-2022 Monocytes/100 WBC (Bld) 5.0 % 0-10 [facility] Blood platelet mean volumeOr dered By: Dr. Villarreal on 10-23-2022 Platelet mean volume (Bld) [Entitic vol] 10.1 fL 6.2-12.0 [facility] Determination of erythrocyte mean corpuscular volume (MCV)Ordered By: Dr. Villarreal on 10-23-2022 MCV (RBC) [Entitic vol] 93.4 fL 81-99 [facility] Hematocrit Auto (Bld) [Volum e fraction]Ordered By: Dr. Villarreal on 10-23-2022 Hematocrit (Bld) [Volume fraction] 41.2 % 37-47 [facility] INR in Blood by Coagulation assayOrdered By: Dr. Villarreal on 10-23-2022 INR Coag (Bld) [Relative time] 3.7 {INR} [facility] Laboratory - Chemistry and C hemistry - challengeOrdered By: Dr. Villarreal on 10-23-2022 CO2 [Moles/Vol] 33.0 mmol/L 21.0-32.0 [facility] Urea nitrogen/Creatinine [Mass ratio] 27.4 mg/mg 10-20 [facility] Laboratory - CoagulationOrde red By: Dr. Villarreal on 10-23-2022 PT Coag (PPP) [Time] 36.1 s 11.7-14.9 [facility] Laboratory - Hematology and Cell countsOrdered By: Dr. Villarreal on 10-23-2022 Erythrocyte distribution width (RBC) [Entitic vol] 47.7 fL 35.1-43.9 [facility] Erythrocyte distribution width (RBC) [Ratio] 14.0 % 11.6-14.6 [facility] Immature granulocytes/100 WBC (Bld) 0.800 % 0.0-0.9 [facility] Comment on above: IG% - Immature Granu locytes (promyelocytes, myelocytes and metamyelocytes) > 1% indicates that a LEFT SHIFT is Present. MCH (RBC) [Entitic mass] 27.9 pg 27.0-32.0 [facility] Nucleated RBC/100 WBC (Bld) [Ratio] 0 % 0-5 [facility] MCHC Auto (RBC) [Mass/Vol]Or dered By: Dr. Villarreal on 10-23-2022 MCHC (RBC) [Mass/Vol] 29.9 g/dL 32-36 [facility] No Panel InformationOrdered By: Dr. Villarreal on 10-23-2022 Estimated Creatinine Clearance Calc 31.93 ml/min [facility] Estimated GFR (MDRD) Amer 65 mL/min >60 [facility] Comment on above: GFR Calc Estimated GFR (MDRD) Non-Af Amer 53 mL/min >60 [facility] Comment on above: Non- GFR Calc 27.9 pg 27.0-32.0 [facility] 14.0 % 11.6-14.6 [facility] 47.7 fl 35.1-43.9 [facility] 0.800 % 0.0-0.9 [facility] 0 % 0-5 [facility] 36.1 SECONDS 11.7-14.9 [facility] 53 mL/min >60 [facility] 65 mL/min >60 [facility] 31.93 ml/min [facility] 27.4 RATIO 10-20 [facility] 33.0 mmol/L 21.0-32.0 [facility] Platelets bldOrdered By: Dr. Villarreal on 10-23-2022 Platelets (Bld) [#/Vol] 325 10*3/uL 150-450 [facility] Serum or plasma calcium lisa urement (mass/volume)Ordered By: Dr. Villarreal on 10-23-2022 Calcium [Mass/Vol] 9.0 mg/dL 8.5-10.1 [facility] Serum or plasma creatinine m easurement (mass/volume)Ordered By: Dr. Villarreal on 10-23-2022 Creatinine [Mass/Vol] 1.06 mg/dL 0.55-1.02 [facility] Comment on above: The validity of the calculated GFR & GFRAA in patients over 70 years has not been determined. Clinical correlation is essential. Serum or plasma urea nitroge n measurement (mass/volume)Ordered By: Dr. Villarreal on 10-23-2022 Urea nitrogen [Mass/Vol] 29 mg/dL 7-18 [facility] Thin prep Papanicolaou smear with manual screeningOrdered By: Dr. Villarreal on 10-23-2022 Thin prep Papanicolaou smear with manual screening 4 5-15 [facility] Vancomycin troughOrdered By: Dr. Perry on 10-23-2022 Vancomycin trough [Mass/Vol] 5.6 ug/mL 5.0-15.0 [facility] Comment on above: VANCOMYCIN STANDARED DRUG THERAPY TROUGH LEVEL: 5.0 - 15.0 mg/L VANCOMYCIN HIGH INTENSITY THERAPY TROUGH LEVEL: 15.0 - 20.0 mg/L High Intensity therapy recommended for serious lifethreatening infections include:- [id number] (Ventilator/Healtcare Associated)-Sepsis PLEASE CONTACT PHARMACY SERVICES (#[id number]) FOR INTERPRETATIONOF RESULTS. Basophil percentageOrdered B y: Dr. Perry on 10-21-2022 Basophil percentage 6.3 g/dL 6.4-8.2 [facility] Basophil percentage 0.30 mg/dL 0.20-1.00 [facility] Basophil percentage 163 mg/dL <200 [facility] Basophil percentage 79 mg/dL <199 [facility] Bilirubin [Mass/Vol] 0.30 mg/dL 0.20-1.00 [facility] Comment on above: For patients on eltr ombopag therapy, use of Dimension [place] TBIL is not recommended. Cholesterol [Mass/Vol] 163 mg/dL <200 [facility] Comment on above: <200 mg/dL Desirable 200-240 mg/dL Borderline >240 mg/dL High Risk Protein [Mass/Vol] 6.3 g/dL 6.4-8.2 [facility] Triglyceride [Mass/Vol] 79 mg/dL <199 [facility] Comment on above: The drugs N-Acetylcy steine and Metamizole may falsely depress this assay.Serum Triglycerides Reference Interval Normal <150 mg/dL Borderline high 150 - 199 mg/dL High 200 - 499 mg/dL Very High > or = 500 mg/dL Laboratory - Chemistry and C hemistry - challengeOrdered By: Dr. Perry on 10-21-2022 ALP [Catalytic activity/Vol] 81 U/L [facility] ALT [Catalytic activity/Vol] 11 U/L [facility] Globulin (S) [Mass/Vol] 3.8 g/dL 2.2-4.2 [facility] Magnesium [Mass/Vol] 2.5 mg/dL 1.6-2.6 [facility] Laboratory - Microbiology an d Antimicrobial susceptibilityOrdered By: Dr. Smiley on 10-21-2022 Respiratory pathogens DNA and RNA 12b panel DELFINA+probe (Unsp spec) [facility] No Panel InformationOrdered By: Dr. Perry on 10-21-2022 3.8 g/dL 2.2-4.2 [facility] 81 U/L [facility] 11 U/L [facility] 2.5 mg/dL 1.6-2.6 [facility] Streptococcus pneumoniae Antigen (M [facility] Serum or plasma albumin lisa urement (mass/volume)Ordered By: Dr. Perry on 10-21-2022 Albumin [Mass/Vol] 2.5 g/dL 3.2-5.0 [facility] Serum or plasma albumin/glob ulin mass ratioOrdered By: Dr. Perry on 10-21-2022 Albumin/Globulin [Mass ratio] 0.7 {ratio} 0.9-2.4 [facility] Serum or plasma cholesterol in HDL measurement (mass/volume)Ordered By: Dr. Perry on 10-21-2022 Cholesterol in HDL [Mass/Vol] 53 mg/dL >40 [facility] Comment on above: The drugs N-Acetylcy steine and Metamizole may falsely depress this assay. Reference Range HDL <40 mg/dL Low HDL Cholesterol HDL >or= 60 mg/dL High HDL Cholesterol Serum or plasma cholesterol in VLDL measurement (mass/volume)Ordered By: Dr. Perry on 10-21-2022 Cholesterol in VLDL [Mass/Vol] 16 mg/dL 5-40 [facility] Serum or plasma low density lipoprotein (LDL) cholesterol measurement (mass/volume)Ordered By: Dr. Perry on 10-21-2022 Cholesterol in LDL [Mass/Vol] 94 mg/dL 0-130 [facility] Thin prep Papanicolaou smear with manual screeningOrdered By: Dr. Perry on 10-21-2022 Thin prep Papanicolaou smear with manual screening 10 U/L 15-37 [facility] Urine Legionella pneumophila antigen detectionOrdered By: Dr. Perry on 10-21-2022 L. pneumophila Ag Ql (U) [facility] Absolute lymphocyte countOrd ered By: Dr. Smiley on 10-20-2022 Lymphocytes Auto (Unsp spec) [#/Vol] 0.70 10*3/uL 0.83-4.51 [facility] Basophil percentageOrdered B y: Dr. Smiley on 10-20-2022 Bilirubin [Mass/Vol] 0.40 mg/dL 0.20-1.00 [facility] Comment on above: For patients on eltr ombopag therapy, use of Dimension [place] TBIL is not recommended. Protein [Mass/Vol] 5.8 g/dL 6.4-8.2 [facility] Basophil percentage 0-5 SEEN /hpf 0-5 [facility] Basophils/100 WBC (Bld) 0.3 % 0-1 [facility] Chloride [Moles/Vol] 101 mmol/L 98-107 [facility] Eosinophils/100 WBC (Bld) 0.7 % 0-5 [facility] Glucose [Mass/Vol] 91 mg/dL 74-106 [facility] Neutrophils (Bld) [#/Vol] 13.3 10*3/uL 2.0-7.7 [facility] Neutrophils/100 WBC (Bld) 89.2 % 47-70 [facility] Potassium [Moles/Vol] 3.6 mmol/L 3.5-5.1 [facility] Sodium [Moles/Vol] 138 mmol/L 136-145 [facility] WBC (Bld) [#/Vol] 14.9 10*3/uL 4.4-11.0 [facility] Bilirubin Test strip Ql (U)O rdered By: Dr. Smiley on 10-20-2022 Bilirubin Ql (U) Negative Negative [facility] Blood erythrocytes count (nu mber/volume)Ordered By: Dr. Smiley on 10-20-2022 RBC (Bld) [#/Vol] 4.55 10*6/uL 4.2-5.4 [facility] Blood hemoglobin measurement (mass/volume)Ordered By: Dr. Smiley on 10-20-2022 Hemoglobin (Bld) [Mass/Vol] 12.7 g/dL 12.0-15.0 [facility] Blood lymphocytes/100 leukoc ytesOrdered By: Dr. Smiley on 10-20-2022 Lymphocytes/100 WBC (Bld) 4.7 % 19-41 [facility] Blood monocytes/100 leukocyt esOrdered By: Dr. Smiley on 10-20-2022 Monocytes/100 WBC (Bld) 4.6 % 0-10 [facility] Blood platelet mean volumeOr dered By: Dr. Smiley on 10-20-2022 Platelet mean volume (Bld) [Entitic vol] 9.9 fL 6.2-12.0 [facility] COVID-19 virus antigen assay Ordered By: Dr. Smiley on 10-20-2022 SARS-CoV-2 (COVID-19) Ag IA.rapid Ql (Resp) Not detected Not Detect [facility] Comment on above: Normal Reference Ran ge: Not DetectedMethod:(RT-PCR) real-time reverse transcriptase PCRLuminex JONI Instrument*The Food and Drug Administration (FDA) has issued an Emergency Use Authorization (EAU) for the JONI SARS-CoV-2 Assay for the rapid detection of the virus that causes COVID-19. This test has been validated, but the FDAs independent review of this validation is pending.*Negative results do not preclude infection and should not be used as the sole basis for treatment or patient management. Optimum specimen types and timing for peak viral levels during infections caused by SARS-CoV-2 have not been determined. Collection of multiple specimens from the same patient may be necessary to detect the virus. The possibility of a false negative result should be considered if the patient has clinical presentation or has had recent exposure. Determination of erythrocyte mean corpuscular volume (MCV)Ordered By: Dr. Smiley on 10-20-2022 MCV (RBC) [Entitic vol] 90.3 fL 81-99 [facility] Direct bilirubinOrdered By: Dr. Smiley on 10-20-2022 Bilirubin.direct [Mass/Vol] 0.15 mg/dL 0.00-0.30 [facility] Hematocrit Auto (Bld) [Volum e fraction]Ordered By: Dr. Smiley on 10-20-2022 Hematocrit (Bld) [Volume fraction] 41.1 % 37-47 [facility] INR in Blood by Coagulation assayOrdered By: Dr. Smiley on 10-20-2022 INR Coag (Bld) [Relative time] 2.4 {INR} [facility] Ketones Test strip Ql (U)Ord ered By: Dr. Smiley on 10-20-2022 Ketones Ql (U) Negative Negative [facility] Laboratory - Chemistry and C hemistry - challengeOrdered By: Dr. Smiley on 10-20-2022 ALP [Catalytic activity/Vol] 73 U/L 45-117 [facility] ALT [Catalytic activity/Vol] 10 U/L 13-56 [facility] Globulin (S) [Mass/Vol] 3.4 g/dL 2.2-4.2 [facility] CO2 [Moles/Vol] 31.0 mmol/L 21.0-32.0 [facility] Lipase [Catalytic activity/Vol] 47 U/L 73-393 [facility] Natriuretic peptide B (Bld) [Mass/Vol] 199.4 pg/mL 0-100 [facility] Urea nitrogen/Creatinine [Mass ratio] 14.6 mg/mg 10-20 [facility] Laboratory - CoagulationOrde red By: Dr. Smiley on 10-20-2022 PT Coag (PPP) [Time] 25.9 s 11.7-14.9 [facility] Laboratory - Hematology and Cell countsOrdered By: Dr. Smiley on 10-20-2022 Erythrocyte distribution width (RBC) [Entitic vol] 45.2 fL 35.1-43.9 [facility] Erythrocyte distribution width (RBC) [Ratio] 13.6 % 11.6-14.6 [facility] Immature granulocytes/100 WBC (Bld) 0.500 % 0.0-0.9 [facility] Comment on above: IG% - Immature Granu locytes (promyelocytes, myelocytes and metamyelocytes) > 1% indicates that a LEFT SHIFT is Present. MCH (RBC) [Entitic mass] 27.9 pg 27.0-32.0 [facility] Nucleated RBC/100 WBC (Bld) [Ratio] 0 % 0-5 [facility] MCHC Auto (RBC) [Mass/Vol]Or dered By: Dr. Smiley on 10-20-2022 MCHC (RBC) [Mass/Vol] 30.9 g/dL 32-36 [facility] Mucus LM Ql (Urine sed)Order ed By: Dr. Smiley on 10-20-2022 Mucus Ql (Urine sed) 0 SEEN /hpf [facility] Nitrite Test strip Ql (U)Ord ered By: Dr. Smiley on 10-20-2022 Nitrite Ql (U) Negative Negative [facility] No Panel InformationOrdered By: Dr. Perry on 10-20-2022 Troponin I High Sensitivity 18 pg/mL 3.0-54.0 [facility] Comment on above: Please Note: New Lisy t Units and Gender Specific Reference Ranges. For more information see Policy Stat Procedure [place] High Sensitivity Troponin (TNIH) and attachments. 18 pg/mL 3.0-54.0 [facility] No Panel InformationOrdered By: Dr. Smiley on 10-20-2022 Troponin I High Sensitivity 21 pg/mL 3.0-54.0 [facility] Comment on above: Please Note: New Lisy t Units and Gender Specific Reference Ranges. For more information see Policy Stat Procedure [place] High Sensitivity Troponin (TNIH) and attachments. Estimated Creatinine Clearance Calc 35.25 ml/min [facility] Estimated GFR (MDRD) Amer 72 mL/min >60 [facility] Comment on above: GFR Calc Estimated GFR (MDRD) Non-Af Amer 60 mL/min >60 [facility] Comment on above: Non- GFR Calc 47 U/L 73-393 [facility] 199.4 pg/mL 0-100 [facility] Platelets bldOrdered By: Dr. Smiley on 10-20-2022 Platelets (Bld) [#/Vol] 282 10*3/uL 150-450 [facility] Protein Test strip Ql (U)Ord ered By: Dr. Smiley on 10-20-2022 Protein Ql (U) 15 mg/dl Negative [facility] Serum or plasma albumin lisa urement (mass/volume)Ordered By: Dr. Smiley on 10-20-2022 Albumin [Mass/Vol] 2.4 g/dL 3.2-5.0 [facility] Serum or plasma calcium lisa urement (mass/volume)Ordered By: Dr. Smiley on 10-20-2022 Calcium [Mass/Vol] 9.6 mg/dL 8.5-10.1 [facility] Serum or plasma creatinine m easurement (mass/volume)Ordered By: Dr. Smiley on 10-20-2022 Creatinine [Mass/Vol] 0.96 mg/dL 0.55-1.02 [facility] Comment on above: The validity of the calculated GFR & GFRAA in patients over 70 years has not been determined. Clinical correlation is essential. Serum or plasma urea nitroge n measurement (mass/volume)Ordered By: Dr. Smiley on 10-20-2022 Urea nitrogen [Mass/Vol] 14 mg/dL 7-18 [facility] Serum procalcitonin measurem entOrdered By: Dr. Perry on 10-20-2022 Procalcitonin [Mass/Vol] 0.05 ng/mL 0.00-0.09 [facility] Comment on above: A procalcitonin (PCT ) level above 2.0 ng/mL on the first day of ICU admission is associated with a high risk for progression to severe sepsis and/or septic shock. A PCT level below 0.5 ng/mL on the first day of ICU admission is associated with a low risk for progression to severe and/or septic shock. Note: Concentrations <0.5 ng/mL do not exclude an infection on account of localized infections (without systemic signs) which can be associated with such low concentrations, or a systemic infection in its initial stages (<6 hours). Furthermore, increased procalcitonin can occur without infection. PCT concentrations between 0.5 and 2.0 ng/mL should be interpreted taking into account the patient's history. It is recommended to retest PCT within 6-24 hours if any concentrations <2 ng/mL are obtained. Squamous epithelial cells de tection in urine sediment by light microscopyOrdered By: Dr. Smiley on 10-20-2022 Epithelial cells.squamous LM Ql (Urine sed) 0-5 SEEN /hpf 5-10 [facility] Thin prep Papanicolaou smear with manual screeningOrdered By: Dr. Smiley on 10-20-2022 Thin prep Papanicolaou smear with manual screening 11 U/L 15-37 [facility] Thin prep Papanicolaou smear with manual screening 6 5-15 [facility] Urine blood detectionOrdered By: Dr. Smiley on 10-20-2022 RBC Ql (U) 25 /ul Negative [facility] RBC Ql (U) 0-5 SEEN /hpf 0-5 [facility] Urine clarityOrdered By: Dr. Smiley on 10-20-2022 Clarity (U) Clear Clear [facility] Urine color determinationOrd ered By: Dr. Smiley on 10-20-2022 Color (U) Yellow Yellow [facility] Urine glucose detectionOrder ed By: Dr. Smiley on 10-20-2022 Glucose Ql (U) Normal mg/dl Normal [facility] Urine leukocyte esterase det ection by dipstickOrdered By: Dr. Smiley on 10-20-2022 Leukocyte esterase Test strip Ql (U) 25 /ul Negative [facility] Urine pHOrdered By: Dr. Praveen hollingsworth on 10-20-2022 pH (U) 7.0 [pH] 5.0 - 8.0 [facility] Urine sediment bacteria coun t by microscopy (number/high power field)Ordered By: Dr. Smiley on 10-20-2022 Bacteria LM.HPF (Urine sed) [#/Area] RARE /hpf None Seen [facility] Urine specific gravity measu rementOrdered By: Dr. Smiley on 10-20-2022 Specific gravity (U) [Rel density] 1.010 1.002-1.030 [facility] Urobilinogen Auto test strip Ql (U)Ordered By: Dr. Smiley on 10-20-2022 Urobilinogen Ql (U) Normal mg/dl Normal [facility] CNPNon 10-12-2022 CNPN Telephone (AGSPINE3) ELZA CHU ([id number]) 1945 F NFR Date Time Provider Department 10/12/22 GILBERTO VIRK AGSPINE3 During your visit today, we recorded the following information about you: Chloe Patrick, MAUDE 10/12/2022 8:44 AM Signed Faxed the [facility] [employer] form to [phone] Chloe Patrick Mud [employer]er Helper to Dr. Virk, Kait Isbell PA-C, Workers [employer] [facility] P: [id number] / F: [phone] / [email or web address] Allergies As of Date: 10/12/2022 Noted Allergy Reaction ADHESIVE 11/30/2008 2 - Rash Comments: Blistering at site of application. DEXTROMETHORPHAN 08/06/2018 14 - Other: See Comments 1 - Mental Status Change RISPERIDONE 11/29/2021 14 - Other: See Comments SULFA (SULFONAMIDE ANTIBIOTICS) 03/11/2002 14 - Other: See Comments Comments: Renal dysfunction. Childhood reaction. Generalized swelling CELEBREX (CELECOXIB) 11/14/2006 14 - Other: See Comments Comments: Migraine headache. ARICEPT (DONEPEZIL) 04/29/2020 17 - Myalgia Comments: muscle pain and difficulty walking COMPAZINE (PROCHLORPERAZINE) 04/23/2012 14 - Other: See Comments Comments: low BP CRESTOR (ROSUVASTATIN CALCIUM) 01/18/2016 8 - GI Upset GABAPENTIN 04/26/2016 5 - Intolerance Comments: Confusion, when coupled with norco LIPITOR (ATORVASTATIN CALCIUM) 01/18/2016 17 - Myalgia LISINOPRIL 04/23/2012 3 - Cough No Latex Allergy [Other] 11/25/2002 OXYCODONE 03/11/2002 9 - Itching PENICILLINS 03/11/2002 14 - Other: See Comments Comments: Heart palpitations. No rash or itch. Can take cephalosporins PROZAC (FLUOXETINE HCL) 03/25/2014 14 - Other: See Comments Comments: hallucinating ULTRAM (TRAMADOL HCL) 04/23/2012 9 - Itching CODEINE 03/11/2002 9 - Itching Date Reviewed: 10/04/2022 Reviewed by: Vandana Sims - Fully Assessed Reason for Visit: Orders [681] Cmt: [facility] Prescriptions as of 10/12/2022 - iv contrast (will be provided with radiology test) CT Chest W -Inject, intravenously, once for 1 dose.No IV access, insert saline lock prior to the beginning of sedation, infusion, injection of imaging exam. Discontinue saline lock post exam. If Pt. has a central line or IVAD, may access for administration according to line specific nursing protocol. Once exam is complete flush line and de-access according to line specific nursing protocol in the CT contrast administration guidelines link. - ergocalciferol 50,000 unit capsule (VITAMIN D2, DRISDOL) Take 1 capsule by mouth every other week. - baclofen (LIORESAL) 10 mg tablet Take 1 tablet by mouth three times daily as needed (muscle spasms). - montelukast (SINGULAIR) 10 mg tablet Take 1 tablet by mouth daily at bedtime. - diclofenac (VOLTAREN) 1 % topical gel Apply 4 g to affected area four times daily. - pregabalin (LYRICA) 25 mg capsule Take 1 capsule by mouth daily at bedtime for 30 days. - BREO ELLIPTA 200-25 mcg/dose inhaler INHALE 1 PUFF BY MOUTH ONCE DAILY - PARoxetine (PAXIL) 20 mg tablet Take 1 tablet by mouth once daily. - LORazepam (ATIVAN) 1 mg tablet Take 0.5 tablets by mouth twice daily for 90 days. - ferrous sulfate 325 mg (65 mg iron) tablet Take 1 tablet by mouth twice daily with meals. - SPIRIVA RESPIMAT 2.5 mcg/actuation inhaler INHALE 2 SPRAYS BY MOUTH ONCE DAILY AT APPROXIMATELY THE SAME TIME EACH DAY - furosemide (LASIX) 40 mg tablet Take 1 tablet by mouth once daily. - buPROPion XL (WELLBUTRIN XL) 150 mg 24 hr tablet Take 1 tablet by mouth once daily. - warfarin (COUMADIN) 3 mg tablet 2.5 mg MW and 4.5 mg all other days or as directed - warfarin (COUMADIN) 2.5 mg tablet 2.5 mg MWF and 4.5 mg all other days or as directed - pantoprazole DR (PROTONIX) 40 mg tablet Take 1 tablet by mouth twice daily. - potassium chloride ER (K-DUR, KLOR-CON) 20 mEq tablet Take 1 tablet by mouth once daily. - albuterol (PROVENTIL) 2.5 mg /3 mL (0.083 %) nebulizer solution Use 3 mL via nebulizer every 6 hours as needed for wheezing/shortness of breath. DX: J45.40 Hx of moderate persistent Asthma - warfarin (COUMADIN) 2.5 mg tablet 2.5 mg Mon/Sun, 4.5 mg all other days or as directed - amiodarone (PACERONE) 200 mg tablet Take 100 mg by mouth once daily. - albuterol HFA (PROAIR HFA) 90 mcg/actuation inhaler Inhale 2 Puffs as instructed every 4 hours as needed. - budesonide-formoterol (SYMBICORT) 160-4.5 mcg/actuation inhaler Inhale 2 Puffs as instructed twice daily. - acetaminophen (TYLENOL EXTRA STRENGTH) 500 mg tablet Take 1 tablet by mouth every 4 hours as needed for Pain. RANGE FREQ? - Nebulizer NEBULIZER FOR HOME USE and necessary supplies. DX: Hypoxemia, Pneumonia and Hemoptisis - triamcinolone acetonide (NASACORT AQ) 55 mcg nasal inhaler Use 1 [place] in the nose once daily. - pravastatin (PRAVACHOL) 80 mg tablet TAKE 1 TABLET BY MOUTH ONCE DA (more content not included)... Normal [facility] CNPNon 10-10-2022 CNPN Telephone (AGSPINE3) ELZA CHU ([id number]) 1945 F NFR Date Time Provider Department 10/10/22 GILBERTO VIRK AGSPINE3 During your visit today, we recorded the following information about you: MAUDE Myers 10/10/2022 9:46 AM Signed Medical consent to stop taking Coumadin (will need to bridge with Lovenox) for [address] Mckay on 10/09/2022. The consent form was received on 10/10/2022 and is scanned into the chart. Good until 03/2023 Chloe Patrick Mud [employer]er Helper to Dr. Virk, Dr. Loomis, Kait Modi PA-C, Workers [employer] [facility] P: [id number] / F: [phone] / MAUDE Myers 10/10/2022 9:46 AM Signed Message sent to Felipe to call and schedule Chloe Patrick [place] to Dr. Virk, Dr. Loomis, Kait Modi PA-C, Workers [employer] [facility] P: [id number] / F: [phone] / Allergies As of Date: 10/10/2022 Noted Allergy Reaction ADHESIVE 11/30/2008 2 - Rash Comments: Blistering at site of application. DEXTROMETHORPHAN 08/06/2018 14 - Other: See Comments 1 - Mental Status Change RISPERIDONE 11/29/2021 14 - Other: See Comments SULFA (SULFONAMIDE ANTIBIOTICS) 03/11/2002 14 - Other: See Comments Comments: Renal dysfunction. Childhood reaction. Generalized swelling CELEBREX (CELECOXIB) 11/14/2006 14 - Other: See Comments Comments: Migraine headache. ARICEPT (DONEPEZIL) 04/29/2020 17 - Myalgia Comments: muscle pain and difficulty walking COMPAZINE (PROCHLORPERAZINE) 04/23/2012 14 - Other: See Comments Comments: low BP CRESTOR (ROSUVASTATIN CALCIUM) 01/18/2016 8 - GI Upset GABAPENTIN 04/26/2016 5 - Intolerance Comments: Confusion, when coupled with norco LIPITOR (ATORVASTATIN CALCIUM) 01/18/2016 17 - Myalgia LISINOPRIL 04/23/2012 3 - Cough No Latex Allergy [Other] 11/25/2002 OXYCODONE 03/11/2002 9 - Itching PENICILLINS 03/11/2002 14 - Other: See Comments Comments: Heart palpitations. No rash or itch. Can take cephalosporins PROZAC (FLUOXETINE HCL) 03/25/2014 14 - Other: See Comments Comments: hallucinating ULTRAM (TRAMADOL HCL) 04/23/2012 9 - Itching CODEINE 03/11/2002 9 - Itching Date Reviewed: 10/04/2022 Reviewed by: Vandana Sims - Fully Assessed Reason for Visit: Anticoagulation [8] Prescriptions as of 10/10/2022 - iv contrast (will be provided with radiology test) CT Chest W -Inject, intravenously, once for 1 dose.No IV access, insert saline lock prior to the beginning of sedation, infusion, injection of imaging exam. Discontinue saline lock post exam. If Pt. has a central line or IVAD, may access for administration according to line specific nursing protocol. Once exam is complete flush line and de-access according to line specific nursing protocol in the CT contrast administration guidelines link. - ergocalciferol 50,000 unit capsule (VITAMIN D2, DRISDOL) Take 1 capsule by mouth every other week. - predniSONE (DELTASONE) 10 mg tablet Take 4 tabs daily x 3 days, then 3 tabs x 3 days, 2 tabs x 3 days, then 1 tab x3 days with food. - baclofen (LIORESAL) 10 mg tablet Take 1 tablet by mouth three times daily as needed (muscle spasms). - montelukast (SINGULAIR) 10 mg tablet Take 1 tablet by mouth daily at bedtime. - diclofenac (VOLTAREN) 1 % topical gel Apply 4 g to affected area four times daily. - pregabalin (LYRICA) 25 mg capsule Take 1 capsule by mouth daily at bedtime for 30 days. - BREO ELLIPTA 200-25 mcg/dose inhaler INHALE 1 PUFF BY MOUTH ONCE DAILY - PARoxetine (PAXIL) 20 mg tablet Take 1 tablet by mouth once daily. - LORazepam (ATIVAN) 1 mg tablet Take 0.5 tablets by mouth twice daily for 90 days. - ferrous sulfate 325 mg (65 mg iron) tablet Take 1 tablet by mouth twice daily with meals. - SPIRIVA RESPIMAT 2.5 mcg/actuation inhaler INHALE 2 SPRAYS BY MOUTH ONCE DAILY AT APPROXIMATELY THE SAME TIME EACH DAY - furosemide (LASIX) 40 mg tablet Take 1 tablet by mouth once daily. - buPROPion XL (WELLBUTRIN XL) 150 mg 24 hr tablet Take 1 tablet by mouth once daily. - warfarin (COUMADIN) 3 mg tablet 2.5 mg MW and 4.5 mg all other days or as directed - warfarin (COUMADIN) 2.5 mg tablet 2.5 mg MWF and 4.5 mg all other days or as directed - pantoprazole DR (PROTONIX) 40 mg tablet Take 1 tablet by mouth twice daily. - potassium chloride ER (K-DUR, KLOR-CON) 20 mEq tablet Take 1 tablet by mouth once daily. - albuterol (PROVENTIL) 2.5 mg /3 mL (0.083 %) nebulizer solution Use 3 mL via nebulizer every 6 hours as needed for wheezing/shortness of breath. DX: J45.40 Hx of moderate persistent Asthma - warfarin (COUMADIN) 2.5 mg tablet 2.5 mg Mon/Sun, 4.5 mg all other days or as directed - amiodarone (PACERONE) 200 mg tablet Take 100 mg by mouth once daily. - albuterol HFA (PROAIR HFA) 90 (more content not included)... Normal [facility] CNPN Telephone (AGSPINE3) ELZA CHU ([id number]) 1945 F NFR Date Time Provider Department 10/10/22 GILBERTO VIRK AGSPINE3 During your visit today, we recorded the following information about you: Adiel Garcia 10/10/2022 2:44 PM Signed Called patient to advise that Dr. Mckay stipulated she would need bridging anticoagulant therapy with enoxaperin/lovenox due to history of a mechanical aortic valve prosthesis. Patient declined to pursue caudal epidural at this time. Felipe Virk MD 10/10/2022 3:21 PM Signed Acknowledged. Pt can be bridged with Lovenox for her caudal LARISSA but elects not pursue this. She is still eligible for MBBs/RFA in the lumbar region which do not require her anticoagulation to be held. Allergies As of Date: 10/10/2022 Noted Allergy Reaction ADHESIVE 11/30/2008 2 - Rash Comments: Blistering at site of application. DEXTROMETHORPHAN 08/06/2018 14 - Other: See Comments 1 - Mental Status Change RISPERIDONE 11/29/2021 14 - Other: See Comments SULFA (SULFONAMIDE ANTIBIOTICS) 03/11/2002 14 - Other: See Comments Comments: Renal dysfunction. Childhood reaction. Generalized swelling CELEBREX (CELECOXIB) 11/14/2006 14 - Other: See Comments Comments: Migraine headache. ARICEPT (DONEPEZIL) 04/29/2020 17 - Myalgia Comments: muscle pain and difficulty walking COMPAZINE (PROCHLORPERAZINE) 04/23/2012 14 - Other: See Comments Comments: low BP CRESTOR (ROSUVASTATIN CALCIUM) 01/18/2016 8 - GI Upset GABAPENTIN 04/26/2016 5 - Intolerance Comments: Confusion, when coupled with norco LIPITOR (ATORVASTATIN CALCIUM) 01/18/2016 17 - Myalgia LISINOPRIL 04/23/2012 3 - Cough No Latex Allergy [Other] 11/25/2002 OXYCODONE 03/11/2002 9 - Itching PENICILLINS 03/11/2002 14 - Other: See Comments Comments: Heart palpitations. No rash or itch. Can take cephalosporins PROZAC (FLUOXETINE HCL) 03/25/2014 14 - Other: See Comments Comments: hallucinating ULTRAM (TRAMADOL HCL) 04/23/2012 9 - Itching CODEINE 03/11/2002 9 - Itching Date Reviewed: 10/04/2022 Reviewed by: Vandana Sims - Fully Assessed Reason for Visit: Anticoagulation Follow Up [145] Prescriptions as of 10/11/2022 - iv contrast (will be provided with radiology test) CT Chest W -Inject, intravenously, once for 1 dose.No IV access, insert saline lock prior to the beginning of sedation, infusion, injection of imaging exam. Discontinue saline lock post exam. If Pt. has a central line or IVAD, may access for administration according to line specific nursing protocol. Once exam is complete flush line and de-access according to line specific nursing protocol in the CT contrast administration guidelines link. - ergocalciferol 50,000 unit capsule (VITAMIN D2, DRISDOL) Take 1 capsule by mouth every other week. - predniSONE (DELTASONE) 10 mg tablet Take 4 tabs daily x 3 days, then 3 tabs x 3 days, 2 tabs x 3 days, then 1 tab x3 days with food. - baclofen (LIORESAL) 10 mg tablet Take 1 tablet by mouth three times daily as needed (muscle spasms). - montelukast (SINGULAIR) 10 mg tablet Take 1 tablet by mouth daily at bedtime. - diclofenac (VOLTAREN) 1 % topical gel Apply 4 g to affected area four times daily. - pregabalin (LYRICA) 25 mg capsule Take 1 capsule by mouth daily at bedtime for 30 days. - BREO ELLIPTA 200-25 mcg/dose inhaler INHALE 1 PUFF BY MOUTH ONCE DAILY - PARoxetine (PAXIL) 20 mg tablet Take 1 tablet by mouth once daily. - LORazepam (ATIVAN) 1 mg tablet Take 0.5 tablets by mouth twice daily for 90 days. - ferrous sulfate 325 mg (65 mg iron) tablet Take 1 tablet by mouth twice daily with meals. - SPIRIVA RESPIMAT 2.5 mcg/actuation inhaler INHALE 2 SPRAYS BY MOUTH ONCE DAILY AT APPROXIMATELY THE SAME TIME EACH DAY - furosemide (LASIX) 40 mg tablet Take 1 tablet by mouth once daily. - buPROPion XL (WELLBUTRIN XL) 150 mg 24 hr tablet Take 1 tablet by mouth once daily. - warfarin (COUMADIN) 3 mg tablet 2.5 mg MW and 4.5 mg all other days or as directed - warfarin (COUMADIN) 2.5 mg tablet 2.5 mg MWF and 4.5 mg all other days or as directed - pantoprazole DR (PROTONIX) 40 mg tablet Take 1 tablet by mouth twice daily. - potassium chloride ER (K-DUR, KLOR-CON) 20 mEq tablet Take 1 tablet by mouth once daily. - albuterol (PROVENTIL) 2.5 mg /3 mL (0.083 %) nebulizer solution Use 3 mL via nebulizer every 6 hours as needed for wheezing/shortness of breath. DX: J45.40 Hx of moderate persistent Asthma - warfarin (COUMADIN) 2.5 mg tablet 2.5 mg Sun/Sun, 4.5 mg all other days or as directed - amiodarone (PACERONE) 200 mg tablet Take 100 mg by mouth once daily. - albuterol HFA (PROAIR HFA) 90 mcg/actuation inhaler Inhale 2 Puffs as instructed every 4 hours as needed. - budesonide-formoterol (SYMBICORT) 160-4.5 mcg/actuation inhaler Inhale 2 Puffs as instructed twice daily. - acetaminophe (more content not included)... Normal [facility] CNCOon 10-05-[address] [facility] CNOVon 10-04-2022 CNOV Office Visit (AGSPINE3) ELZA CHU ([id number]) 1945 F NFR Date Time Provider Department 10/04/22 1:30 PM GILBERTO VIRK [facility] During your visit today, we recorded the following information about you: Pulse Respiration 70/minute 18/minute Gilberto Virk MD 10/10/2022 3:12 PM Addendum [facility] Name: Elza Chu : 1945 Purpose: Followup Evaluation Date 10/04/22 Chief Complaint: lumbar and thoracic spine pain History of Present Illness: Elza Chu is a 76 year old year-old female with Atrial fibrillation, s/p AVR x2 on Coumadin (INR goal 2.5-3.5), compression fracture (T11, T12, L1 and L3 compression fracture), HL, HTN, asthma, migraines, 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 Plan at last visit 09/14/22: Interventional Procedure(s): none Medication(s): - start Tylenol 1gm BID - Diclofenac 1% gel - start Lyrica 25mg QHS only (unable to tolerate NSAIDs) Additional Studies: CT L-spine XR T-spine XR L-spine Referrals: No additional considerations at present Functional Buddhist:No changes-continue current regimen Depending on response to the above-mentioned plan of care, in the future may consider evaluation for: LARISSA vs MBBs pending CT L-spine Interval Events: 09/14/22: recc XR L-spine, XR T-spine, CT L-spine. Started on Tylenol, Lyrica 10/02/22: Patients XR L-spine shows progression of T11 compression fracture as well as L1 and L3 compression fractures (approximately 50-60% compressive deformity of the T11 vertebral). However, pt further underwent a CT L-spine on 09/19/22 which showed that her compression fractures are stable as compared to CT L-spine on 09/18/21. Patient will benefit from TLSO bracing as tolerated, as well as possible consultation to IR for kyphoplasty, which will be discussed at her next OV on 10/04/22. Interval History: Today, pt reports that she has had good relief from Diclofenac 1% gel. She has not started Lyrica due to c/f side effects. Recall pt had acute on chronic lower back pain in July 2022 as noted below without an inciting cause. She has had chronic lower back pain and has suffered multiple compression fractures in the past, however she has not undergone kyphoplasty/vertebrop lasty for her prior fractures. Pain Description: Primary Location: midline lumbar spine, bilateral R=L lumbar paraspinal, thoracic paraspinal pain Radiation: Lumbar spine: to the bilateral lumbar paraspinals Thoracic spine: to the bilateral thoracic paraspinals Character: sharp/sore Exacerbating factors: walking >a few steps, standing 10-15 min, flexion/extension, sit to stand transitons Relieving factors: ice , and heat Pain Medications Taken TO DATE (for the chief complaint(s)): OTC: Tylenol (moderate relief) NSAIDS: no NSAIDs due to AC Neuropathics: Gabapentin (mental fog, no benefit) Topicals: none Muscle Relaxants: none CURRENT Pain Medications: Paxil 20 mg daily Ativan 0.5 mg twice daily Bupropion 150 daily Baclofen 10mg TID prn Pt otherwise denies fevers, chills, weight loss, weakness, saddle anesthesia, bowel/bladder incontinence or retention. Imaging: CT L-spine 08/2022 IMPRESSION: Multilevel degenerative changes as above, comparable to prior exam. RESULT: Counting reference: Lumbosacral junction. For the purposes of this report, L4-5 is considered the level of the iliac crest and assume there are 5 lumbar-type vertebrae. Anatomic variant: None. [employer] (topogram) images: Median sternotomy wires. Alignment: Moderate curvature lumbar spine concave to the RIGHT. Bone marrow /fracture: No evidence of a lytic or blastic process in the visualized spine. Stable compression fracture deformities involving T10, T11, L1, and L3. Remaining vertebral bodies normal in height. Posterior elements are intact. Paraspinal soft tissues: Hiatal hernia. L1-L2: Moderate canal stenosis secondary to mild retropulsed bony fragments and facet arthropathy. Unchanged. Severe foraminal stenosis. L2-L3: Bulging disk, facet, and ligamentous hypertrophy results in severe central canal narrowing and moderate LEFT and severe RIGHT neural foraminal narrowing. Unchanged. L3-L4: Bulging disk, facet, and ligamentous hypertrophy results in moderate central canal narrowing and severe neural foraminal narrowing. L4-L5: Bulging disk, facet, and ligamentous hypertrophy results in severe central canal narrowing and severe neural foraminal narrowing. L5-S1: Bulging disk, facet, and ligamentous hypertrophy results in moderate central canal narrowing and severe neural foraminal narrowing. Sacrum and iliac wings: The (more content not included)... Normal [facility] CNPNon 10-02-2022 CNPN Telephone (AGSPHWG) RHETTELZA Colón ([id number]) 1945 F NFR Date Time Provider Department 10/02/22 GILBERTO VIRK AGSPHWG During your visit today, we recorded the following information about you: Gilberto Virk MD 10/02/2022 3:31 PM Signed Patients XR L-spine shows progression of T11 compression fracture as well as L1 and L3 compression fractures (approximately 50-60% compressive deformity of the T11 vertebral). However, pt further underwent a CT L-spine on 09/19/22 which showed that her compression fractures are stable as compared to CT L-spine on 09/18/21. Patient will benefit from TLSO bracing as tolerated due to significant pain, as well as possible consultation to IR for kyphoplasty, which will be discussed at her next OV on 10/04/22. Allergies As of Date: 10/02/2022 Noted Allergy Reaction ADHESIVE 11/30/2008 2 - Rash Comments: Blistering at site of application. DEXTROMETHORPHAN 08/06/2018 14 - Other: See Comments 1 - Mental Status Change RISPERIDONE 11/29/2021 14 - Other: See Comments SULFA (SULFONAMIDE ANTIBIOTICS) 03/11/2002 14 - Other: See Comments Comments: Renal dysfunction. Childhood reaction. Generalized swelling CELEBREX (CELECOXIB) 11/14/2006 14 - Other: See Comments Comments: Migraine headache. ARICEPT (DONEPEZIL) 04/29/2020 17 - Myalgia Comments: muscle pain and difficulty walking COMPAZINE (PROCHLORPERAZINE) 04/23/2012 14 - Other: See Comments Comments: low BP CRESTOR (ROSUVASTATIN CALCIUM) 01/18/2016 8 - GI Upset GABAPENTIN 04/26/2016 5 - Intolerance Comments: Confusion, when coupled with norco LIPITOR (ATORVASTATIN CALCIUM) 01/18/2016 17 - Myalgia LISINOPRIL 04/23/2012 3 - Cough No Latex Allergy [Other] 11/25/2002 OXYCODONE 03/11/2002 9 - Itching PENICILLINS 03/11/2002 14 - Other: See Comments Comments: Heart palpitations. No rash or itch. Can take cephalosporins PROZAC (FLUOXETINE HCL) 03/25/2014 14 - Other: See Comments Comments: hallucinating ULTRAM (TRAMADOL HCL) 04/23/2012 9 - Itching CODEINE 03/11/2002 9 - Itching Date Reviewed: 09/29/2022 Reviewed by: Tia De Los Santos LPN - Fully Assessed Reason for Visit: Results [95] Prescriptions as of 10/02/2022 - ergocalciferol 50,000 unit capsule (VITAMIN D2, DRISDOL) Take 1 capsule by mouth every other week. - predniSONE (DELTASONE) 10 mg tablet Take 4 tabs daily x 3 days, then 3 tabs x 3 days, 2 tabs x 3 days, then 1 tab x3 days with food. - baclofen (LIORESAL) 10 mg tablet Take 1 tablet by mouth three times daily as needed (muscle spasms). - montelukast (SINGULAIR) 10 mg tablet Take 1 tablet by mouth daily at bedtime. - diclofenac (VOLTAREN) 1 % topical gel Apply 4 g to affected area four times daily. - pregabalin (LYRICA) 25 mg capsule Take 1 capsule by mouth daily at bedtime for 30 days. - BREO ELLIPTA 200-25 mcg/dose inhaler INHALE 1 PUFF BY MOUTH ONCE DAILY - PARoxetine (PAXIL) 20 mg tablet Take 1 tablet by mouth once daily. - LORazepam (ATIVAN) 1 mg tablet Take 0.5 tablets by mouth twice daily for 90 days. - ferrous sulfate 325 mg (65 mg iron) tablet Take 1 tablet by mouth twice daily with meals. - SPIRIVA RESPIMAT 2.5 mcg/actuation inhaler INHALE 2 SPRAYS BY MOUTH ONCE DAILY AT APPROXIMATELY THE SAME TIME EACH DAY - furosemide (LASIX) 40 mg tablet Take 1 tablet by mouth once daily. - buPROPion XL (WELLBUTRIN XL) 150 mg 24 hr tablet Take 1 tablet by mouth once daily. - warfarin (COUMADIN) 3 mg tablet 2.5 mg MW and 4.5 mg all other days or as directed - warfarin (COUMADIN) 2.5 mg tablet 2.5 mg MWF and 4.5 mg all other days or as directed - pantoprazole DR (PROTONIX) 40 mg tablet Take 1 tablet by mouth twice daily. - potassium chloride ER (K-DUR, KLOR-CON) 20 mEq tablet Take 1 tablet by mouth once daily. - albuterol (PROVENTIL) 2.5 mg /3 mL (0.083 %) nebulizer solution Use 3 mL via nebulizer every 6 hours as needed for wheezing/shortness of breath. DX: J45.40 Hx of moderate persistent Asthma - warfarin (COUMADIN) 2.5 mg tablet 2.5 mg Mon/Sun, 4.5 mg all other days or as directed - amiodarone (PACERONE) 200 mg tablet Take 100 mg by mouth once daily. - albuterol HFA (PROAIR HFA) 90 mcg/actuation inhaler Inhale 2 Puffs as instructed every 4 hours as needed. - budesonide-formoterol (SYMBICORT) 160-4.5 mcg/actuation inhaler Inhale 2 Puffs as instructed twice daily. - acetaminophen (TYLENOL EXTRA STRENGTH) 500 mg tablet Take 1 tablet by mouth every 4 hours as needed for Pain. RANGE FREQ? - Nebulizer NEBULIZER FOR HOME USE and necessary supplies. DX: Hypoxemia, Pneumonia and Hemoptisis - triamcinolone acetonide (NASACORT AQ) 55 mcg nasal inhaler Use 1 [place] in the nose once daily. - pravastatin (PRAVACHOL) 80 mg tablet TAKE 1 TABLET BY MOUTH ONCE DAILY - aspirin 81 mg chewable tablet Take 2 tablets by mouth once daily. - metoprolol succinate XL, long acting, 5 (more content not included)... Normal [facility] ESR Westergren method (Bld) [Velocity]on 09-30-2022 ESR (Bld) [Velocity] 29 mm/h High 0 - 20 mm/hr Cl [facility] VITAMIN D 25 HYDROXYon 09-30 25-hydroxyvitamin D3 [Mass/Vol] 73.4 ng/mL 31.0 - 80.0 ng/mL [facility] C-REACTIVE PROTEIN (CRP)on 0 09-29-2022 CRP [Mass/Vol] 1.6 mg/dL High <0.9 mg/dL [facility] Comprehensive metabolic 2000 panelon 09-29-2022 Albumin [Mass/Vol] 3.5 g/dL Low 3.9 - 4.9 g/dL [facility] ALP [Catalytic activity/Vol] 105 U/L 34 - 123 U/L [facility] ALT [Catalytic activity/Vol] 14 U/L 7 - 38 U/L [facility] Anion gap [Moles/Vol] 8 mmol/L Low 9 - 18 mmol/L [facility] AST [Catalytic activity/Vol] 23 U/L 13 - 35 U/L [facility] Bilirubin [Mass/Vol] 0.3 mg/dL 0.2 - 1 .3 mg/dL [facility] Calcium [Mass/Vol] 10.0 mg/dL 8.5 - 10. 2 mg/dL [facility] Chloride [Moles/Vol] 104 mmol/L 97 - 10 5 mmol/L [facility] CO2 [Moles/Vol] 30 mmol/L 22 - 30 mmol/L [facility] Creatinine [Mass/Vol] 1.13 mg/dL High 0.58 - 0.96 mg/dL [facility] Estimated Glomerular Filtration Rate 50 mL/min/1.73m Low >=60 mL/min/1.73m [facility] Glucose [Mass/Vol] 85 mg/dL 74 - 99 mg/dL [facility] Potassium [Moles/Vol] 4.5 mmol/L 3.7 - 5.1 mmol/L [facility] Protein [Mass/Vol] 6.6 g/dL 6.3 - 8.0 g/dL [facility] Sodium [Moles/Vol] 142 mmol/L 136 - 144 mmol/L [facility] Urea nitrogen [Mass/Vol] 14 mg/dL 7 - 21 mg/d L [facility] No Panel Informationon 09-19 [facility] CNOVon 09-14-2022 CNOV Office Visit (AGSPINE3) ELZA CHU ([id number]) 1945 F NFR Date Time Provider Department 09/14/22 11:00 AM GILBERTO VIRK AGSPINE3 During your visit today, we recorded the following information about you: Pulse Respiration Normal [facility] Absolute lymphocyte countOrd ered By: Dr. Rock on 09-03-2022 Lymphocytes Auto (Unsp spec) [#/Vol] 1.08 10*3/uL 0.83-4.51 [facility] Basophil percentageOrdered B y: Dr. Rock on 09-03-2022 Basophil percentage 89 mg/dL 74-106 [facility] Basophil percentage 142 [facility]L 136-[facility] 3.5 mmol[facility]L 3.5[facility]5.[facility] Basophil percentage 105 mmol/L 98-107 [facility] Basophils (Bld) [#/Vol] 10.0 10*3/uL 4.4-11.0 [facility] Basophils (Bld) [#/Vol] 7.9 10*3/uL 2.0-7.7 [facility] Basophils/100 WBC (Bld) 0.4 % 0-1 [facility] Basophils/100 WBC (Bld) 78.9 % 47-70 [facility] Basophils/100 WBC (Bld) 2.9 % 0-5 [facility] Chloride [Moles/Vol] 105 mmol/L 98-107 [facility] Eosin[facility]/100 WBC (Bld) 2.9 % 0-5 [facility] Glucose [Mass/Vol] 89 mg/dL 74-106 [facility] Neutrophils (Bld) [#/Vol] 7.9 10*3/uL 2.0-7.7 [facility] Neutrophils/100 WBC (Bld) 78.9 % 47-70 [facility] Potassium [Moles/Vol] 3.5 mmol/L 3.5-5.1 [facility] Sodium [Moles/Vol] 142 mmol/L 136-145 [facility] WBC (Bld) [#/Vol] 10.0 10*3/uL 4.4-11.0 [facility] Blood erythrocytes count (nu mber/volume)Ordered By: Dr. Rock on 09-03-2022 RBC (Bld) [#/Vol] 4.58 10*6/uL 4.2-5.4 [facility] Blood hemoglobin measurement (mass/volume)Ordered By: Dr. Rock on 09-03-2022 Hemoglobin (Bld) [Mass/Vol] 13.1 g/dL 12.0-15.0 [facility] Blood lymphocytes/100 leukoc ytesOrdered By: Dr. Rock on 09-03-2022 Lymphocytes/100 WBC (Bld) 10.8 % 19-41 [facility] Blood monocytes/100 leukocyt esOrdered By: Dr. Rock on 09-03-2022 Monocytes/100 WBC (Bld) 6.7 % 0-10 [facility] Blood platelet mean volumeOr dered By: Dr. Rock on 09-03-2022 Platelet mean volume (Bld) [Entitic vol] 10.7 fL 6.2-12.0 [facility] Determination of erythrocyte mean corpuscular volume (MCV)Ordered By: Dr. Rock on 09-03-2022 MCV (RBC) [Entitic vol] 93.0 fL 81-99 [facility] Hematocrit Auto (Bld) [Volum e fraction]Ordered By: Dr. Rock on 09-03-2022 Hematocrit (Bld) [Volume fraction] 42.6 % 37-47 [facility] Laboratory - Chemistry and C hemistry - challengeOrdered By: Dr. Rock on 09-03-2022 CO2 [Moles/Vol] 31.0 mmol/L 21.0-32.0 [facility] Urea nitrogen/Creatinine [Mass ratio] 14.2 mg/mg 10-20 [facility] Laboratory - Hematology and Cell countsOrdered By: Dr. Rock on 09-03-2022 Erythrocyte distribution width (RBC) [Entitic vol] 46.2 fL 35.1-43.9 [facility] Erythrocyte distribution width (RBC) [Ratio] 13.6 % 11.6-14.6 [facility] Immature granulocytes/100 WBC (Bld) 0.300 % 0.0-0.9 [facility] Comment on above: IG% - Immature Granu locytes (promyelocytes, myelocytes and metamyelocytes) > 1% indicates that a LEFT SHIFT is Present. MCH (RBC) [Entitic mass] 28.6 pg 27.0-32.0 [facility] Nucleated RBC/100 WBC (Bld) [Ratio] 0 % 0-5 [facility] MCHC Auto (RBC) [Mass/Vol]Or dered By: Dr. Rock on 09-03-2022 MCHC (RBC) [Mass/Vol] 30.8 g/dL 32-36 [facility] No Panel InformationOrdered By: Dr. Rock on 09-03-2022 Estimated Creatinine Clearance Calc 36.78 ml/min [facility] Estimated GFR (MDRD) Amer 76 mL/min >60 [facility] Comment on above: GFR Calc Estimated GFR (MDRD) Non-Af Amer 63 mL/min >60 [facility] Comment on above: Non- GFR Calc 28.6 pg 27.0-32.0 [facility] 13.6 % 11.6-14.6 [facility] 46.2 fl 35.1-43.9 [facility] 0.300 % 0.0-0.9 [facility] 0 % 0-5 [facility] 63 mL/min >60 [facility] 76 mL/min >60 [facility] 36.78 ml/min [facility] 14.2 RATIO 10-20 [facility] 31.0 mmol/L 21.0-32.0 [facility] Platelets bldOrdered By: Dr. Rock on 09-03-2022 Platelets (Bld) [#/Vol] 283 10*3/uL 150-450 [facility] Serum or plasma calcium lisa urement (mass/volume)Ordered By: Dr. Rock on 09-03-2022 Calcium [Mass/Vol] 9.3 mg/dL 8.5-10.1 [facility] Serum or plasma creatinine m easurement (mass/volume)Ordered By: Dr. Rock on 09-03-2022 Creatinine [Mass/Vol] 0.92 mg/dL 0.55-1.02 [facility] Comment on above: The validity of the calculated GFR & GFRAA in patients over 70 years has not been determined. Clinical correlation is essential. Serum or plasma urea nitroge n measurement (mass/volume)Ordered By: Dr. Rock on 09-03-2022 Urea nitrogen [Mass/Vol] 13 mg/dL 7-18 [facility] Thin prep Papanicolaou smear with manual screeningOrdered By: Dr. Rock on 09-03-2022 Thin prep Papanicolaou smear with manual screening 6 5-15 [facility] Absolute lymphocyte countOrd ered By: Dr. Reyes on 08-12-2022 Lymphocytes Auto (Unsp spec) [#/Vol] 0.72 10*3/uL 0.83-4.51 [facility] Basophil percentageOrdered B y: Dr. Reyes on 08-12-2022 Basophil percentage 86 mg/dL 74-106 [facility] Basophil percentage 140 mmol/L 136-145 [facility] Basophil percentage 3.6 mmol/L 3.5-5.1 [facility] Basophil percentage 102 mmol/L 98-107 [facility] Basophils (Bld) [#/Vol] 17.2 10*3/uL 4.4-11.0 [facility] Basophils (Bld) [#/Vol] 15.6 10*3/uL 2.0-7.7 [facility] Basophils/100 WBC (Bld) 0.3 % 0-1 [facility] Basophils/100 WBC (Bld) 90.6 % 47-70 [facility] Basophils/100 WBC (Bld) 0.5 % 0-5 [facility] Chloride [Moles/Vol] 102 mmol/L 98-107 [facility] Eosinophils/100 WBC (Bld) 0.5 % 0-5 [facility] Glucose [Mass/Vol] 86 mg/dL 74-106 [facility] Neutrophils (Bld) [#/Vol] 15.6 10*3/uL 2.0-7.7 [facility] Neutrophils/100 WBC (Bld) 90.6 % 47-70 [facility] Potassium [Moles/Vol] 3.6 mmol/L 3.5-5.1 [facility] Sodium [Moles/Vol] 140 mmol/L 136-145 [facility] WBC (Bld) [#/Vol] 17.2 10*3/uL 4.4-11.0 [facility] Blood erythrocytes count (nu mber/volume)Ordered By: Dr. Reyes on 08-12-2022 RBC (Bld) [#/Vol] 5.20 10*6/uL 4.2-5.4 [facility] Blood hemoglobin measurement (mass/volume)Ordered By: Dr. Reyes on 08-12-2022 Hemoglobin (Bld) [Mass/Vol] 14.8 g/dL 12.0-15.0 [facility] Blood lymphocytes/100 leukoc ytesOrdered By: Dr. Reyes on 08-12-2022 Lymphocytes/100 WBC (Bld) 4.2 % 19-41 [facility] Blood monocytes/100 leukocyt esOrdered By: Dr. Reyes on 08-12-2022 Monocytes/100 WBC (Bld) 3.8 % 0-10 [facility] Blood platelet mean volumeOr dered By: Dr. Reyes on 08-12-2022 Platelet mean volume (Bld) [Entitic vol] 9.9 fL 6.2-12.0 [facility] Determination of erythrocyte mean corpuscular volume (MCV)Ordered By: Dr. Reyes on 08-12-2022 MCV (RBC) [Entitic vol] 92.7 fL 81-99 [facility] Hematocrit Auto (Bld) [Volum e fraction]Ordered By: Dr. Reyes on 08-12-2022 Hematocrit (Bld) [Volume fraction] 48.2 % 37-47 [facility] INR in Blood by Coagulation assayOrdered By: Dr. Reyes on 08-12-2022 INR Coag (Bld) [Relative time] 2.3 {INR} [facility] Laboratory - Chemistry and C hemistry - challengeOrdered By: Dr. Reyes on 08-12-2022 CO2 [Moles/Vol] 31.0 mmol/L 21.0-32.0 [facility] Urea nitrogen/Creatinine [Mass ratio] 21.5 mg/mg 10-20 [facility] Laboratory - CoagulationOrde red By: Dr. Reyes on 08-12-2022 PT Coag (PPP) [Time] 25.3 s 11.7-14.9 [facility] Laboratory - Hematology and Cell countsOrdered By: Dr. Reyes on 08-12-2022 Erythrocyte distribution width (RBC) [Entitic vol] 45.5 fL 35.1-43.9 [facility] Erythrocyte distribution width (RBC) [Ratio] 13.3 % 11.6-14.6 [facility] Immature granulocytes/100 WBC (Bld) 0.600 % 0.0-0.9 [facility] Comment on above: IG% - Immature Granu locytes (promyelocytes, myelocytes and metamyelocytes) > 1% indicates that a LEFT SHIFT is Present. MCH (RBC) [Entitic mass] 28.5 pg 27.0-32.0 [facility] Nucleated RBC/100 WBC (Bld) [Ratio] 0 % 0-5 [facility] MCHC Auto (RBC) [Mass/Vol]Or dered By: Dr. Reyes on 08-12-2022 MCHC (RBC) [Mass/Vol] 30.7 g/dL 32-36 [facility] No Panel InformationOrdered By: Dr. Reyes on 08-12-2022 25.3 SECONDS 11.7-14.9 [facility] Estimated Creatinine Clearance Calc 31.63 ml/min [facility] Estimated GFR (MDRD) Amer 64 mL/min >60 [facility] Comment on above: GFR Calc Estimated GFR (MDRD) Non-Af Amer 53 mL/min >60 [facility] Comment on above: Non- GFR Calc 28.5 pg 27.0-32.0 [facility] 13.3 % 11.6-14.6 [facility] 45.5 fl 35.1-43.9 [facility] 0.600 % 0.0-0.9 [facility] 0 % 0-5 [facility] 53 mL/min >60 [facility] 64 mL/min >60 [facility] 31.63 ml/min [facility] 21.5 RATIO 10-20 [facility] 31.0 mmol/L 21.0-32.0 [facility] Platelets bldOrdered By: Dr. Reyes on 08-12-2022 Platelets (Bld) [#/Vol] 318 10*3/uL 150-450 [facility] Serum or plasma calcium lisa urement (mass/volume)Ordered By: Dr. Reyes on 08-12-2022 Calcium [Mass/Vol] 9.6 mg/dL 8.5-10.1 [facility] Serum or plasma creatinine m easurement (mass/volume)Ordered By: Dr. Reyes on 08-12-2022 Creatinine [Mass/Vol] 1.07 mg/dL 0.55-1.02 [facility] Comment on above: The validity of the calculated GFR & GFRAA in patients over 70 years has not been determined. Clinical correlation is essential. Serum or plasma urea nitroge n measurement (mass/volume)Ordered By: Dr. Reyes on 08-12-2022 Urea nitrogen [Mass/Vol] 23 mg/dL 7-18 [facility] Thin prep Papanicolaou smear with manual screeningOrdered By: Dr. Reyes on 08-12-2022 Thin prep Papanicolaou smear with manual screening 7 5-15 [facility] PT panel Coag (PPP)on 2021 INR Coag (PPP) [Relative time] 2.9 {INR} High 0.9 - 1.3 [facility] PT Coag (PPP) [Time] 28.6 s High 9.7 - 1 3.0 sec [facility] XR Lumbar spine 3 Viewson IMPRESSION: Findings as discussed under Results portion of report. Ventilating Expert: PEYTON Transcribe Date/Time: Jul 09 2022 8:46A Dictated by : JERRI AYOUB DO This examination was interpreted and the report reviewed and electronically signed by: JERRI AYOUB DO on Jul 09 2022 8:49AM [facility] DIVISION OF RADIOLOGY * * *Final Report* * * DATE OF EXAM: Jul 06 2022 12:02PM WOX 5228 - XR LUMBAR 3V AP/LAT/L5-S1 / PROCEDURE REASON: Compression deformity of vertebra * * * * Physician Interpretation * * * * LUMBAR SPINE: EXAM DATE/TIME: 07/06/2022 12:02 PM HISTORY: 76 years old Indication: Compression deformity of vertebra lower back pain TECHNIQUE: Views obtained: XR LUMBAR 3V AP/LAT/L5-S1 Comparison: None. RESULT: Findings: Marked demineralization. No narrowing of the disk spaces is seen. Severe LEFT convex rotoscoliosis. No fractures or dislocations are seen. Severe compression fracture of the L1 vertebral body again noted. The compression fractures of T10 and T11 noted on previous CT are not optimally seen due to bony demineralization. DIVISION OF RADIOLOGY Provider, Damian William - 07/09/2022 * * *Final Report* * * DATE OF EXAM: Jul 06 2022 12:02PM WOX 5228 - XR LUMBAR 3V AP/LAT/L5-S1 / PROCEDURE REASON: Compression deformity of vertebra * * * * Physician Interpretation * * * * LUMBAR SPINE: EXAM DATE/TIME: 07/06/2022 12:02 PM HISTORY: 76 years old Indication: Compression deformity of vertebra lower back pain TECHNIQUE: Views obtained: XR LUMBAR 3V AP/LAT/L5-S1 Comparison: None. RESULT: Findings: Marked demineralization. No narrowing of the disk spaces is seen. Severe LEFT convex rotoscoliosis. No fractures or dislocations are seen. Severe compression fracture of the L1 vertebral body again noted. The compression fractures of T10 and T11 noted on previous CT are not optimally seen due to bony demineralization. IMPRESSION IMPRESSION: Findings as discussed under Results portion of report. Ventilating Expert: PSCBryan Transcribe Date/Time: Jul 09 2022 8:46A Dictated by : JERRI AYOUB DO This examination was interpreted and the report reviewed and electronically signed by: JERRI AYOUB DO on Jul 09 2022 8:49AM EST [facility] XR Lumbar spine 3 ViewsOrder ed By: [facility] Provider on 07-09-2022 [facility] XR Lumbar spine 3 Viewson Radiology Study observation (narrative) [facility] No Panel InformationOrdered By: Dr. Mckay on 06-07-2022 Thyroid Stimulating Hormone (TSH) 2.23 uIU/mL 0.358-3.74 [facility] Absolute lymphocyte countOrd ered By: Dr. Bergman on 05-24-2022 Lymphocytes Auto (Unsp spec) [#/Vol] 0.77 10*3/uL 0.83-4.51 [facility] Basophil percentageOrdered B y: Dr. Bergman on 05-24-2022 Basophils/100 WBC (Bld) 0.3 % 0-1 [facility] Chloride [Moles/Vol] 102 mmol/L 98-107 [facility] Eosinophils/100 WBC (Bld) 0.2 % 0-5 [facility] Glucose [Mass/Vol] 84 mg/dL 74-106 [facility] Neutrophils (Bld) [#/Vol] 15.9 10*3/uL 2.0-7.7 [facility] Neutrophils/100 WBC (Bld) 90.2 % 47-70 [facility] Potassium [Moles/Vol] 4.1 mmol/L 3.5-5.1 [facility] Comment on above: Moderate Hemolysis, Result may be falsely increased. Sodium [Moles/Vol] 138 mmol/L 136-145 [facility] WBC (Bld) [#/Vol] 17.6 10*3/uL 4.4-11.0 [facility] Blood erythrocytes count (nu mber/volume)Ordered By: Dr. Bergman on 05-24-2022 RBC (Bld) [#/Vol] 4.89 10*6/uL 4.2-5.4 [facility] Blood hemoglobin measurement (mass/volume)Ordered By: Dr. Bergman on 05-24-2022 Hemoglobin (Bld) [Mass/Vol] 14.4 g/dL 12.0-15.0 [facility] Blood lymphocytes/100 leukoc ytesOrdered By: Dr. Bergman on 05-24-2022 Lymphocytes/100 WBC (Bld) 4.4 % 19-41 [facility] Blood monocytes/100 leukocyt esOrdered By: Dr. Bergman on 05-24-2022 Monocytes/100 WBC (Bld) 4.4 % 0-10 [facility] Blood platelet mean volumeOr dered By: Dr. Bergman on 05-24-2022 Platelet mean volume (Bld) [Entitic vol] 10.1 fL 6.2-12.0 [facility] Determination of erythrocyte mean corpuscular volume (MCV)Ordered By: Dr. Bergman on 05-24-2022 MCV (RBC) [Entitic vol] 91.2 fL 81-99 [facility] Hematocrit Auto (Bld) [Volum e fraction]Ordered By: Dr. Bergman on 05-24-2022 Hematocrit (Bld) [Volume fraction] 44.6 % 37-47 [facility] Influenza virus A and B and SARS-CoV-2 (COVID-19) Ag panel - Upper respiratory specimOrdered By: ED PROVIDER on 05-24-2022 SARS-CoV-2 (COVID-19) RNA DELFINA+probe Ql (Resp) [facility] Laboratory - Chemistry and C hemistry - challengeOrdered By: Dr. Bergman on 05-24-2022 CO2 [Moles/Vol] 33.0 mmol/L 21.0-32.0 [facility] Urea nitrogen/Creatinine [Mass ratio] 16.5 mg/mg 10-20 [facility] Laboratory - Hematology and Cell countsOrdered By: Dr. Bergman on 05-24-2022 Erythrocyte distribution width (RBC) [Entitic vol] 49.3 fL 35.1-43.9 [facility] Erythrocyte distribution width (RBC) [Ratio] 14.7 % 11.6-14.6 [facility] Immature granulocytes/100 WBC (Bld) 0.500 % 0.0-0.9 [facility] Comment on above: IG% - Immature Granu locytes (promyelocytes, myelocytes and metamyelocytes) > 1% indicates that a LEFT SHIFT is Present. MCH (RBC) [Entitic mass] 29.4 pg 27.0-32.0 [facility] Nucleated RBC/100 WBC (Bld) [Ratio] 0 % 0-5 [facility] MCHC Auto (RBC) [Mass/Vol]Or dered By: Dr. Bergman on 05-24-2022 MCHC (RBC) [Mass/Vol] 32.3 g/dL 32-36 [facility] No Panel InformationOrdered By: Dr. Bergman on 05-24-2022 Estimated Creatinine Clearance Calc 34.89 ml/min [facility] Estimated GFR (MDRD) Amer 72 mL/min >60 [facility] Comment on above: GFR Calc Estimated GFR (MDRD) Non-Af Amer 59 mL/min >60 [facility] Comment on above: Non- GFR Calc Troponin I High Sensitivity 17 pg/mL 3.0-54.0 [facility] Comment on above: Please Note: New Lisy t Units and Gender Specific Reference Ranges. For more information see Policy Stat Procedure [place] High Sensitivity Troponin (TNIH) and attachments. Platelets bldOrdered By: Dr. Bergman on 05-24-2022 Platelets (Bld) [#/Vol] 275 10*3/uL 150-450 [facility] Serum or plasma calcium ilsa urement (mass/volume)Ordered By: Dr. Bergman on 05-24-2022 Calcium [Mass/Vol] 9.8 mg/dL 8.5-10.1 [facility] Serum or plasma creatinine m easurement (mass/volume)Ordered By: Dr. Bergman on 05-24-2022 Creatinine [Mass/Vol] 0.97 mg/dL 0.55-1.02 [facility] Comment on above: The validity of the calculated GFR & GFRAA in patients over 70 years has not been determined. Clinical correlation is essential. Serum or plasma urea nitroge n measurement (mass/volume)Ordered By: Dr. Bergman on 05-24-2022 Urea nitrogen [Mass/Vol] 16 mg/dL 7-18 [facility] Thin prep Papanicolaou smear with manual screeningOrdered By: Dr. Bergman on 05-24-2022 Thin prep Papanicolaou smear with manual screening 3 5-15 [facility] XR CHEST 2V FRONTAL/LATon [facility] XR Chest PA and Lateralon IMPRESSION: Improved left basilar airspace disease with resolving pleural fluid and atelectasis, pneumonia returned to baseline.. Ventilating Expert: PSCB Transcribe Date/Time: Feb 20 2022 6:55P Dictated by : KIANA REINOSO MD This examination was interpreted and the report reviewed and electronically signed by: KIANA REINOSO MD on Feb 20 2022 6:59PM EST [email or web address]_ USE_DIVISIO N OF RADIOLOGY * * *Final Report* * * DATE OF EXAM: Feb 20 2022 6:43PM WOX 5291 - XR CHEST 2V FRONTAL/LAT / PROCEDURE REASON: Cough, unspecified type * * * * Physician Interpretation * * * * EXAMINATION: CHEST RADIOGRAPH (2 VIEW FRONTAL & LATERAL) CLINICAL HISTORY: Cough, unspecified type MQ: XC2_6 EXAM DATE/TIME: 02/20/2022 6:43 PM COMPARISON: Comparison is made to prior chest dated 16 September 2021, June 2021 RESULT: Lines, tubes, and devices: None. 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 Less blunting of the costophrenic angle suggesting resolving pleural fluid when compared to August 2021 study. There is no interval developing focal consolidation or acute pleural process. There is no vascular redistribution to suggest pulmonary edema. Cardiomediastinal silhouette: Unchanged cardiomediastinal silhouette with enlarged cardiac silhouette and median sternotomy changes. Large retrocardiac hiatal hernia again noted. Bones/soft tissues: The bony structures are intact with mild degenerative change. No bony destructive process noted. [email or web address]_NOT_ USE_DIVISIO N OF RADIOLOGY Provider, [facility] - 02/20/2022 * * *Final Report* * * DATE OF EXAM: Feb 20 2022 6:43PM WOX 5291 - XR CHEST 2V FRONTAL/LAT / PROCEDURE REASON: Cough, unspecified type * * * * Physician Interpretation * * * * EXAMINATION: CHEST RADIOGRAPH (2 VIEW FRONTAL & LATERAL) CLINICAL HISTORY: Cough, unspecified type MQ: XC2_6 EXAM DATE/TIME: 02/20/2022 6:43 PM COMPARISON: Comparison is made to prior chest dated 16 September 2021, June 2021 RESULT: Lines, tubes, and devices: None. 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 Less blunting of the costophrenic angle suggesting resolving pleural fluid when compared to August 2021 study. There is no interval developing focal consolidation or acute pleural process. There is no vascular redistribution to suggest pulmonary edema. Cardiomediastinal silhouette: Unchanged cardiomediastinal silhouette with enlarged cardiac silhouette and median sternotomy changes. Large retrocardiac hiatal hernia again noted. Bones/soft tissues: The bony structures are intact with mild degenerative change. No bony destructive process noted. IMPRESSION IMPRESSION: Improved left basilar airspace disease with resolving pleural fluid and atelectasis, pneumonia returned to baseline.. Ventilating Expert: PSCB Transcribe Date/Time: Feb 20 2022 6:55P Dictated by : KIANA REINOSO MD This examination was interpreted and the report reviewed and electronically signed by: KIANA REINOSO MD on Feb 20 2022 6:59PM EST [facility] Radiology Study observation (narrative) Denisa colón [facility] XR Chest PA and LateralOrder ed By: [facility] Provider on 02-20-2022 [facility] Absolute lymphocyte counton 01-19-2022 Lymphocytes Auto (Unsp spec) [#/Vol] 1.29 10*3/uL 0.83-4.51 [facility] Work Phone: Basophil percentageon 2021 Basophils/100 WBC (Bld) 0.6 % 0-1 [facility] Work Phone: Chloride [Moles/Vol] 103 mmol/L 98-107 [facility] Work Phone: Eosinophils/100 WBC (Bld) 1.6 % 0-5 [facility] Work Phone: Glucose [Mass/Vol] 114 mg/dL 74-106 [facility] Work Phone: Comment on above: Fasting Glucose resu lt from 100 to 125 mg/dL suggests IMPAIRED HOMEOSTASIS per A.D.A. criteria. Neutrophils (Bld) [#/Vol] 7.8 10*3/uL 2.0-7.7 [facility] Work Phone: Neutrophils/100 WBC (Bld) 77.3 % 47-70 [facility] Work Phone: Potassium [Moles/Vol] 3.1 mmol/L 3.5-5.1 [facility] Work Phone: Sodium [Moles/Vol] 139 mmol/L 136-145 [facility] Work Phone: WBC (Bld) [#/Vol] 10.1 10*3/uL 4.4-11.0 [facility] Work Phone: Blood erythrocytes count (nu mber/volume)on 01-19-2022 RBC (Bld) [#/Vol] 5.03 10*6/uL 4.2-5.4 [facility] Work Phone: Blood hemoglobin measurement (mass/volume)on 01-19-2022 Hemoglobin (Bld) [Mass/Vol] 14.1 g/dL 12.0-15.0 [facility] Work Phone: Blood lymphocytes/100 leukoc yteson 01-19-2022 Lymphocytes/100 WBC (Bld) 12.7 % 19-41 [facility] Work Phone: Blood monocytes/100 leukocyt eson 01-19-2022 Monocytes/100 WBC (Bld) 7.4 % 0-10 [facility] Work Phone: Blood platelet mean volumeon 01-19-2022 Platelet mean volume (Bld) [Entitic vol] 10.4 fL 6.2-12.0 [facility] Work Phone: Determination of erythrocyte mean corpuscular volume (MCV)on 01-19-2022 MCV (RBC) [Entitic vol] 91.1 fL 81-99 [facility] Work Phone: Glucose Glucometer (BldC) [M ass/Vol]on 01-19-2022 Glucose [Mass/Vol] 118 mg/dL 74-106 [facility] Work Phone: Comment on above: MANAGEMENT OF PATIEN T CARE PER NURSING PROTOCOL Hematocrit Auto (Bld) [Volum e fraction]on 01-19-2022 Hematocrit (Bld) [Volume fraction] 45.8 % 37-47 [facility] Work Phone: INR in Blood by Coagulation assayon 01-19-2022 INR Coag (Bld) [Relative time] 2.9 {INR} [facility] Work Phone: Laboratory - Chemistry and C hemistry - challengeon 01-19-2022 CO2 [Moles/Vol] 33.0 mmol/L 21.0-32.0 [facility] Work Phone: Urea nitrogen/Creatinine [Mass ratio] 13.3 mg/mg 10-20 [facility] Work Phone: Laboratory - Coagulationon 0 01-19-2022 aPTT Coag (Bld) [Time] 37.0 s 24.1-36.2 [facility] Work Phone: PT Coag (PPP) [Time] 30.2 s 11.7-14.[address] [facility] [address] [facility] Work Phone: Laboratory - Hematology and Cell countson 01-19-2022 Erythrocyte distribution width (RBC) [Entitic vol] 47.6 fL 35.1-43.9 [facility] Work Phone: Erythrocyte distribution width (RBC) [Ratio] 14.3 % 11.6-14.6 [facility] Work Phone: Immature granulocytes/100 WBC (Bld) 0.400 % 0.0-0.9 [facility] Work Phone: Comment on above: IG% - Immature Granu locytes (promyelocytes, myelocytes and metamyelocytes) > 1% indicates that a LEFT SHIFT is Present. MCH (RBC) [Entitic mass] 28.0 pg 27.0-32.0 [facility] Work Phone: Nucleated RBC/100 WBC (Bld) [Ratio] 0 % 0-5 [facility] Work Phone: MCHC Auto (RBC) [Mass/Vol]on 01-19-2022 MCHC (RBC) [Mass/Vol] 30.8 g/dL 32-36 [facility] Work Phone: No Panel Informationon 01-19 Estimated Creatinine Clearance Calc 28.20 ml/min [facility] Work Phone: Estimated GFR (MDRD) Amer 56 mL/min >60 [facility] Work Phone: Comment on above: GFR Calc Estimated GFR (MDRD) Non-Af Amer 46 mL/min >60 [facility] Work Phone: Comment on above: Non- GFR Calc Troponin I High Sensitivity 20 pg/mL 3.0-54.0 [facility] Work Phone: Comment on above: Please Note: New Lisy t Units and Gender Specific Reference Ranges. For more information see Policy Stat Procedure [place] High Sensitivity Troponin (TNIH) and attachments. Platelets bldon 01-19-2022 Platelets (Bld) [#/Vol] 295 10*3/uL 150-450 [facility] Work Phone: Serum or plasma calcium lisa urement (mass/volume)on 01-19-2022 Calcium [Mass/Vol] 9.5 mg/dL 8.5-10.1 [facility] Work Phone: Serum or plasma creatinine m easurement (mass/volume)on 01-19-2022 Creatinine [Mass/Vol] 1.20 mg/dL 0.55-1.02 [facility] Work Phone: Comment on above: The validity of the calculated GFR & GFRAA in patients over 70 years has not been determined. Clinical correlation is essential. Serum or plasma urea nitroge n measurement (mass/volume)on 01-19-2022 Urea nitrogen [Mass/Vol] 16 mg/dL 7-18 [facility] Work Phone: Thin prep Papanicolaou smear with manual screeningon 01-19-2022 Thin prep Papanicolaou smear with manual screening 3 5-15 [facility] Work Phone: Absolute lymphocyte counton 12-28-2021 Lymphocytes Auto (Unsp spec) [#/Vol] 1.29 10*3/uL 0.83-4.51 [facility] Work Phone: Basophil percentageon 2021 Basophil percentage 5-10 SEEN /hpf 0-5 [facility] Work Phone: Basophils/100 WBC (Bld) 0.4 % 0-1 [facility] Work Phone: Chloride [Moles/Vol] 102 mmol/L 98-107 [facility] Work [facility]: [phone] Eosinophils/100 WBC (Bld) 0.5 % 0-5 [facility] Work Phone: [phone] Glucose [Mass/Vol] 87 mg/dL 74-106 [facility] Work Phone: [phone] Neutrophils (Bld) [#/Vol] 13.5 10*3/uL 2.0-7.7 [facility] Work Phone: Neutrophils/100 WBC (Bld) 85.4 % 47-70 [facility] Work Phone: [phone] Potassium [Moles/Vol] 4.2 mmol/L 3.5-5.1 [facility] Work Phone: [phone] Sodium [Moles/Vol] 140 mmol/L 136-145 [facility] Work Phone: WBC (Bld) [#/Vol] 15.8 10*3/uL 4.4-11.0 [facility] Work [facility]: Bilirubin Test strip Ql (U)o n 12-28-2021 Bilirubin Ql (U) Negative Negative [facility] Work Phone: Blood erythrocytes count (nu mber/volume)on 12-28-2021 RBC (Bld) [#/Vol] 5.17 10*6/uL 4.2-5.4 [facility] Work Phone: Blood hemoglobin measurement (mass/volume)on 12-28-2021 Hemoglobin (Bld) [Mass/Vol] 14.6 g/dL 12.0-15.0 [facility] Work Phone: [phone] Blood lymphocytes/100 leukoc yteson 12-28-2021 Lymphocytes/100 WBC (Bld) 8.2 % 19-41 [facility] Work Phone: [phone] Blood monocytes/100 leukocyt eson 12-28-2021 Monocytes/100 WBC (Bld) 5.2 % 0-10 [facility] Work Phone: Blood platelet mean volumeon 12-28-2021 Platelet mean volume (Bld) [Entitic vol] 10.6 fL 6.2-12.0 [facility] Work Phone: Determination of erythrocyte mean corpuscular volume (MCV)on 12-28-2021 MCV (RBC) [Entitic vol] 89.9 fL 81-99 [facility] Work Phone: Hematocrit Auto (Bld) [Volum e fraction]on 12-28-2021 Hematocrit (Bld) [Volume fraction] 46.5 % 37-47 [facility] Work Phone: INR in Blood by Coagulation assayon 12-28-2021 INR Coag (Bld) [Relative time] 2.9 {INR} [facility] Work Phone: Ketones Test strip Ql (U)on 12-28-2021 Ketones Ql (U) Negative Negative [facility] Work Phone: Laboratory - Chemistry and C hemistry - challengeon 12-28-2021 CO2 [Moles/Vol] 34.0 mmol/L 21.0-32.0 [facility] Work Phone: Urea nitrogen/Creatinine [Mass ratio] 15.6 mg/mg 10-20 [facility] Work Phone: Laboratory - Coagulationon 0 12-28-2021 PT Coag (PPP) [Time] 29.7 s 11.7-14.9 [facility] Work Phone: Laboratory - Hematology and Cell countson 12-28-2021 Erythrocyte distribution width (RBC) [Entitic vol] 46.8 fL 35.1-43.9 [facility] Work Phone: Erythrocyte distribution width (RBC) [Ratio] 14.1 % 11.6-14.6 [facility] Work Phone: Immature granulocytes/100 WBC (Bld) 0.300 % 0.0-0.9 [facility] Work Phone: Comment on above: IG% - Immature Granu locytes (promyelocytes, myelocytes and metamyelocytes) > 1% indicates that a LEFT SHIFT is Present. MCH (RBC) [Entitic mass] 28.2 pg 27.0-32.0 [facility] Work Phone: Nucleated RBC/100 WBC (Bld) [Ratio] 0 % 0-5 [facility] Work Phone: MCHC Auto (RBC) [Mass/Vol]on 12-28-2021 MCHC (RBC) [Mass/Vol] 31.4 g/dL 32-36 [facility] Work Phone: Mucus LM Ql (Urine sed)on Mucus Ql (Urine sed) 0 SEEN /hpf [facility] Work Phone: Nitrite Test strip Ql (U)on 12-28-2021 Nitrite Ql (U) Negative Negative [facility] Work Phone: No Panel Informationon 12-28 Estimated Creatinine Clearance Calc 26.44 ml/min [facility] Work Phone: Estimated GFR (MDRD) Amer 52 mL/min >60 [facility] Work Phone: Comment on above: GFR Calc Estimated GFR (MDRD) Non-Af Amer 43 mL/min >60 [facility] Work Phone: Comment on above: Non- GFR Calc Troponin I High Sensitivity 14 pg/mL 3.0-54.0 [facility] Work Phone: Comment on above: Please Note: New Lisy t Units and Gender Specific Reference Ranges. For more information see Policy Stat Procedure [place] High Sensitivity Troponin (TNIH) and attachments. SARS-CoV-2 & FLU Antigen (Rapid) [facility] Work Phone: Platelets bldon 12-28-2021 Platelets (Bld) [#/Vol] 281 10*3/uL 150-450 [facility] Work Phone: Protein Test strip Ql (U)on 12-28-2021 Protein Ql (U) Negative Negative [facility] Work Phone: Serum or plasma calcium lisa urement (mass/volume)on 12-28-2021 Calcium [Mass/Vol] 9.6 mg/dL 8.5-10.1 [facility] Work Phone: Serum or plasma creatinine m easurement (mass/volume)on 12-28-2021 Creatinine [Mass/Vol] 1.28 mg/dL 0.55-1.02 [facility] Work Phone: Comment on above: The validity of the calculated GFR & GFRAA in patients over 70 years has not been determined. Clinical correlation is essential. Serum or plasma urea nitroge n measurement (mass/volume)on 12-28-2021 Urea nitrogen [Mass/Vol] 20 mg/dL 7-18 [facility] Work Phone: Squamous epithelial cells de tection in urine sediment by light microscopyon 12-28-2021 Epithelial cells.squamous LM Ql (Urine sed) 0-5 SEEN /hpf 5-10 [facility] Work Phone: Thin prep Papanicolaou smear with manual screeningon 12-28-2021 Thin prep Papanicolaou smear with manual screening 4 5-15 [facility] Work Phone: Urine blood detectionon 06-0 RBC Ql (U) 10 /ul Negative [facility] Work Phone: RBC Ql (U) 0 SEEN /hpf 0-5 [facility] Work Phone: Urine clarityon 12-28-2021 Clarity (U) Clear Clear [facility] Work Phone: Urine color determinationon 12-28-2021 Color (U) Yellow Yellow [facility] Work Phone: Urine glucose detectionon Glucose Ql (U) Normal mg/dl Normal [facility] Work Phone: Urine leukocyte esterase det ection by dipstickon 12-28-2021 Leukocyte esterase Test strip Ql (U) 500 /ul Negative [facility] Work Phone: Urine pHon 12-28-2021 pH (U) 8.0 [pH] 5.0 - 8.0 [facility] Work Phone: Urine sediment bacteria coun t by microscopy (number/high power field)on 12-28-2021 Bacteria LM.HPF (Urine sed) [#/Area] 0 /[HPF] None Seen [facility] Work Phone: Urine specific gravity measu rementon 12-28-2021 Specific gravity (U) [Rel density] 1.010 1.002-1.030 [facility] Work Phone: Urobilinogen Auto test strip Ql (U)on 12-28-2021 Urobilinogen Ql (U) 1 mg/dl [facility]: INR (POC)on 12-15-2021 INR Coag (PPP) [Relative time] 3.2 {INR} High 0.8 - 1.2 [facility] Internal Quality Check Acceptable Cl [facility] Bronchoalveolar lavage cultu re with Gram stainon 10-06-2021 Respiratory Culture Pseudomonas aeroginosa [facility] Work Phone: Respiratory Culture Citrobacter freundii [facility] Work Phone: Gram stain for investigation of transfusion reactionon 10-06-2021 Microscopic observation Gram stain Nom (Unsp spec) [facility] Work Phone: Absolute lymphocyte counton 10-03-2021 Lymphocytes Auto (Unsp spec) [#/Vol] 0.74 10*3/uL 0.83-4.51 [facility] Work Phone: Basophil percentageon 2021 Basophil percentage 0 SEEN /hpf 0-5 [facility] Work Phone: Basophils/100 WBC (Bld) 0.3 % 0-1 [facility] Work Phone: Bilirubin [Mass/Vol] 0.40 mg/dL 0.20-1.00 [facility] Work Phone: Comment on above: For patients on eltr ombopag therapy, use of Dimension [place] TBIL is not recommended. Chloride [Moles/Vol] 103 mmol/L 98-107 [facility] Work Phone: Eosinophils/100 WBC (Bld) 0.9 % 0-5 [facility] Work Phone: Glucose [Mass/Vol] 98 mg/dL 74-106 [facility] Work Phone: Neutrophils (Bld) [#/Vol] 13.1 10*3/uL 2.0-7.7 [facility] Work Phone: [phone] Neutrophils/100 WBC (Bld) 88.3 % 47-70 [facility] Work Phone: Potassium [Moles/Vol] 3.8 mmol/L 3.5-5.1 [facility] Work [facility]: Protein [Mass/Vol] 6.6 g/dL 6.4-8.2 [facility] Work Phone: Sodium [Moles/Vol] 140 mmol/L 136-145 [facility] Work Phone: WBC (Bld) [#/Vol] 14.8 10*3/uL 4.4-11.0 [facility] Work Phone: Bilirubin Test strip Ql (U)o n 10-03-2021 Bilirubin Ql (U) Negative Negative [facility] Work Phone: [phone] Blood erythrocytes count (nu mber/volume)on 10-03-2021 RBC (Bld) [#/Vol] 4.91 10*6/uL 4.2-5.4 [facility] Work Phone: Blood hemoglobin measurement (mass/volume)on 10-03-2021 Hemoglobin (Bld) [Mass/Vol] 14.3 g/dL 12.0-15.0 [facility] Work Phone: Blood lymphocytes/100 leukoc yteson 10-03-2021 Lymphocytes/100 WBC (Bld) 5.0 % 19-41 [facility] Work Phone: Blood monocytes/100 leukocyt eson 10-03-2021 Monocytes/100 WBC (Bld) 5.1 % 0-10 [facility] Work Phone: Blood platelet mean volumeon 10-03-2021 Platelet mean volume (Bld) [Entitic vol] 10.6 fL 6.2-12.0 [facility] Work Phone: Culture, urineon 10-03-2021 Bacteria identified Cx Nom (U) Mixed Gram Pos & Gram Neg Org [facility] Work Phone: Determination of erythrocyte mean corpuscular volume (MCV)on 10-03-2021 MCV (RBC) [Entitic vol] 90.0 fL 81-99 [facility] Work Phone: Hematocrit Auto (Bld) [Volum e fraction]on 10-03-2021 Hematocrit (Bld) [Volume fraction] 44.2 % 37-47 [facility] Work Phone: INR in Blood by Coagulation assayon 10-03-2021 INR Coag (Bld) [Relative time] 2.9 {INR} [facility] Work Phone: Ketones Test strip Ql (U)on 10-03-2021 Ketones Ql (U) Negative Negative [facility] Work Phone: Laboratory - Chemistry and C hemistry - challengeon 10-03-2021 ALP [Catalytic activity/Vol] 121 U/L 45-117 [facility] Work Phone: ALT [Catalytic activity/Vol] 18 U/L 13-56 [facility] Work Phone: CO2 [Moles/Vol] 31.0 mmol/L 21.0-32.0 [facility] Work Phone: Globulin (S) [Mass/Vol] 3.3 g/dL 2.2-4.2 [facility] Work Phone: Urea nitrogen/Creatinine [Mass ratio] 13.9 mg/mg 10-20 [facility] Work Phone: Laboratory - Coagulationon 0 10-03-2021 PT Coag (PPP) [Time] 29.7 s 11.7-14.9 [facility] Work Phone: Laboratory - Hematology and Cell countson 10-03-2021 Erythrocyte distribution width (RBC) [Entitic vol] 45.3 fL 35.1-43.9 [facility] Work Phone: Erythrocyte distribution width (RBC) [Ratio] 14.0 % 11.6-14.6 [facility] Work Phone: Immature granulocytes/100 WBC (Bld) 0.400 % 0.0-0.9 [facility] Work Phone: Comment on above: IG% - Immature Granu locytes (promyelocytes, myelocytes and metamyelocytes) > 1% indicates that a LEFT SHIFT is Present. MCH (RBC) [Entitic mass] 29.1 pg 27.0-32.0 [facility] Work Phone: Nucleated RBC/100 WBC (Bld) [Ratio] 0 % 0-5 [facility] Work Phone: MCHC Auto (RBC) [Mass/Vol]on 10-03-2021 MCHC (RBC) [Mass/Vol] 32.4 g/dL 32-36 [facility] Work Phone: Mucus LM Ql (Urine sed)on Mucus Ql (Urine sed) 0 SEEN /hpf [facility] Work Phone: Nitrite Test strip Ql (U)on 10-03-2021 Nitrite Ql (U) Negative Negative [facility] Work Phone: No Panel Informationon 10-03 Estimated Creatinine Clearance Calc 28.18 ml/min [facility] Work Phone: Estimated GFR (MDRD) Amer 55 mL/min >60 [facility] Work Phone: Comment on above: GFR Calc Estimated GFR (MDRD) Non-Af Amer 45 mL/min >60 [facility] Work Phone: Comment on above: Non- GFR Calc Troponin I High Sensitivity 15 pg/mL 3.0-54.0 [facility] Work Phone: Comment on above: Please Note: New Lisy t Units and Gender Specific Reference Ranges. For more information see Policy Stat Procedure [place] High Sensitivity Troponin (TNIH) and attachments. Influenza Types A,B Direct FA (SETH) [facility] Work Phone: Platelets bldon 10-03-2021 Platelets (Bld) [#/Vol] 335 10*3/uL 150-450 [facility] Work Phone: Protein Test strip Ql (U)on 10-03-2021 Protein Ql (U) Negative Negative [facility] Work Phone: Serum or plasma albumin lisa urement (mass/volume)on 10-03-2021 Albumin [Mass/Vol] 3.3 g/dL 3.2-5.0 [facility] Work Phone: Serum or plasma albumin/glob ulin mass ratioon 10-03-2021 Albumin/Globulin [Mass ratio] 1.0 {ratio} 0.9-2.4 [facility] Work Phone: Serum or plasma calcium lisa urement (mass/volume)on 10-03-2021 Calcium [Mass/Vol] 9.7 mg/dL 8.5-10.1 [facility] Work Phone: Serum or plasma creatinine m easurement (mass/volume)on 10-03-2021 Creatinine [Mass/Vol] 1.22 mg/dL 0.55-1.02 [facility] Work Phone: Comment on above: The validity of the calculated GFR & GFRAA in patients over 70 years has not been determined. Clinical correlation is essential. Serum or plasma urea nitroge n measurement (mass/volume)on 10-03-2021 Urea nitrogen [Mass/Vol] 17 mg/dL 7-18 [facility] Work Phone: Squamous epithelial cells de tection in urine sediment by light microscopyon 10-03-2021 Epithelial cells.squamous LM Ql (Urine sed) 0 SEEN /hpf 5-10 [facility] Work Phone: Thin prep Papanicolaou smear with manual screeningon 10-03-2021 Thin prep Papanicolaou smear with manual screening 17 U/L 15-37 [facility] Work Phone: Thin prep Papanicolaou smear with manual screening 6 5-15 [facility] Work Phone: Urine blood detectionon 03-0 RBC Ql (U) 25 /ul Negative [facility] Work Phone: RBC Ql (U) 0 SEEN /hpf 0-5 [facility] Work Phone: Urine clarityon 10-03-2021 Clarity (U) Clear Clear [facility] Work Phone: Urine color determinationon 10-03-2021 Color (U) Yellow Yellow [facility] Work Phone: Urine glucose detectionon Glucose Ql (U) Normal mg/dl Normal [facility] Work Phone: Urine leukocyte esterase det ection by dipstickon 10-03-2021 Leukocyte esterase Test strip Ql (U) 25 /ul Negative [facility] Work Phone: Urine pHon 10-03-2021 pH (U) 6.5 [pH] 5.0 - 8.0 [facility] Work Phone: Urine sediment bacteria coun t by microscopy (number/high power field)on 10-03-2021 Bacteria LM.HPF (Urine sed) [#/Area] 0 /[HPF] None Seen [facility] Work Phone: Urine specific gravity measu rementon 10-03-2021 Specific gravity (U) [Rel density] 1.010 1.002-1.030 [facility] Work Phone: Urobilinogen Auto test strip Ql (U)on 10-03-2021 Urobilinogen Ql (U) Normal mg/dl Normal [facility] Work Phone: Absolute lymphocyte counton 09-18-2021 Lymphocytes Auto (Unsp spec) [#/Vol] 0.75 10*3/uL 0.83-4.51 [facility] Work Phone: Basophil percentageon 2021 Basophils/100 WBC (Bld) 0.6 % 0-1 [facility] Work Phone: Chloride [Moles/Vol] 104 mmol/L 98-107 [facility] Work [facility]: Eosinophils/100 WBC (Bld) 0.9 % 0-5 [facility] Work Phone: Glucose [Mass/Vol] 87 mg/dL 74-106 [facility] Work Phone: Neutrophils (Bld) [#/Vol] 8.7 10*3/uL 2.0-7.7 [facility] Work Phone: Neutrophils/100 WBC (Bld) 85.6 % 47-70 [facility] Work Phone: Potassium [Moles/Vol] 3.3 mmol/L 3.5-5.1 [facility] Work Phone: Sodium [Moles/Vol] 141 mmol/L 136-145 [facility] Work Phone: WBC (Bld) [#/Vol] 10.2 10*3/uL 4.4-11.0 [facility] Work Phone: [phone] Blood erythrocytes count (nu mber/volume)on 09-18-2021 RBC (Bld) [#/Vol] 4.92 10*6/uL 4.2-5.4 [facility] Work Phone: Blood hemoglobin measurement (mass/volume)on 09-18-2021 Hemoglobin (Bld) [Mass/Vol] 14.3 g/dL 12.0-15.0 [facility] Work Phone: [phone] Blood lymphocytes/100 leukoc yteson 09-18-2021 Lymphocytes/100 WBC (Bld) 7.4 % 19-41 [facility] Work Phone: Blood monocytes/100 leukocyt eson 09-18-2021 Monocytes/100 WBC (Bld) 4.3 % 0-10 [facility] Work Phone: Blood platelet mean volumeon 09-18-2021 Platelet mean volume (Bld) [Entitic vol] 9.9 fL 6.2-12.0 [facility] Work Phone: Determination of erythrocyte mean corpuscular volume (MCV)on 09-18-2021 MCV (RBC) [Entitic vol] 90.0 fL 81-99 [facility] Work Phone: Hematocrit Auto (Bld) [Volum e fraction]on 09-18-2021 Hematocrit (Bld) [Volume fraction] 44.3 % 37-47 [facility] Work Phone: INR in Blood by Coagulation assayon 09-18-2021 INR Coag (Bld) [Relative time] 3.0 {INR} [facility] Work Phone: Laboratory - Chemistry and C hemistry - challengeon 09-18-2021 CO2 [Moles/Vol] 33.0 mmol/L 21.0-32.0 [facility] Work Phone: Urea nitrogen/Creatinine [Mass ratio] 16.8 mg/mg 10- [facility] Work Phone: Laboratory - Coagulationon 0 09-18-2021 PT Coag (PPP) [Time] 30.1 s 11.7-14.9 [facility] Work Phone: Laboratory - Hematology and Cell countson 09-18-2021 Erythrocyte distribution width (RBC) [Entitic vol] 44.0 fL 35.1-43.9 [facility] Work Phone: Erythrocyte distribution width (RBC) [Ratio] 13.3 % 11.6-14.6 [facility] Work Phone: Immature granulocytes/100 WBC (Bld) 1.200 % 0.0-0.9 [facility] Work Phone: Comment on above: IG% - Immature Granu locytes (promyelocytes, myelocytes and metamyelocytes) > 1% indicates that a LEFT SHIFT is Present. MCH (RBC) [Entitic mass] 29.1 pg 27.0-32.0 [facility] Work Phone: Nucleated RBC/100 WBC (Bld) [Ratio] 0 % 0-5 [facility] Work Phone: MCHC Auto (RBC) [Mass/Vol]on 09-18-2021 MCHC (RBC) [Mass/Vol] 32.3 g/dL 32-36 [facility] Work Phone: No Panel Informationon 09-18 Estimated Creatinine Clearance Calc 28.89 ml/min [facility] Work Phone: Estimated GFR (MDRD) Amer 57 mL/min >60 [facility] Work Phone: Comment on above: GFR Calc Estimated GFR (MDRD) Non-Af Amer 47 mL/min >60 [facility] Work Phone: Comment on above: Non- GFR Calc SARS-CoV-2 Antigen (Rapid) [facility] Work Phone: Platelets bldon 09-18-2021 Platelets (Bld) [#/Vol] 290 10*3/uL 150-450 [facility] Work Phone: Serum or plasma calcium lisa urement (mass/volume)on 09-18-2021 Calcium [Mass/Vol] 9.2 mg/dL 8.5-10.1 [facility] Work Phone: Serum or plasma creatinine m easurement (mass/volume)on 09-18-2021 Creatinine [Mass/Vol] 1.19 mg/dL 0.55-1.02 [facility] Work Phone: Comment on above: The validity of the calculated GFR & GFRAA in patients over 70 years has not been determined. Clinical correlation is essential. Serum or plasma urea nitroge n measurement (mass/volume)on 09-18-2021 Urea nitrogen [Mass/Vol] 20 mg/dL 7-18 [facility] Work Phone: Thin prep Papanicolaou smear with manual screeningon 09-18-2021 Thin prep Papanicolaou smear with manual screening 4 5-15 [facility] Work Phone: XR Chest PA and Lateralon IMPRESSION: Findings as described above. Ventilating Expert: PEYTON Transcribe Date/Time: Sep 18 2021 8:40A Dictated by : DEEPAK CHILD MD This examination was interpreted and the report reviewed and electronically signed by: DEEPAK CHILD MD on Sep 18 2021 8:47AM [facility] DIVISION OF RADIOLOGY * * *Final Report* * * DATE OF EXAM: Sep 16 2021 5:10PM WOX [id number] - XR CHEST 2V FRONTAL/LAT / PROCEDURE REASON: multiple diagnoses * * * * Physician Interpretation * * * * EXAMINATION: CHEST RADIOGRAPH (2 VIEW FRONTAL & LATERAL) CLINICAL HISTORY: Chronic obstructive pulmonary disease, unspecified COPD type (HCC) Cough MQ: XC2_6 EXAM DATE/TIME: 09/16/2021 5:10 PM COMPARISON: Chest x-ray on 07/18/2021. RESULT: Lines, tubes, and devices: None. Lungs and pleura: Slightly small lung volume. Persistent eventration of the right hemidiaphragm is noted. Mild opacity or atelectasis noted in the overlying the left lower lung. There is left-sided small pleural effusion, probably slightly worsened. No right-sided pleural effusion. No pneumothorax. Cardiomediastinal silhouette: Stable cardiac silhouette, with atherosclerotic calcifications in the thoracic aorta. A medium to large hiatal hernia is present. Bones and soft tissues: Status post median sternotomy. The spine shows degenerative changes and probably multilevel vertebral body compression deformities/fractures . DIVISION OF RADIOLOGY Provider, [facility] - 09/18/2021 * * *Final Report* * * DATE OF EXAM: Sep 16 2021 5:10PM WOX [id number] - XR CHEST 2V FRONTAL/LAT / PROCEDURE REASON: multiple diagnoses * * * * Physician Interpretation * * * * EXAMINATION: CHEST RADIOGRAPH (2 VIEW FRONTAL & LATERAL) CLINICAL HISTORY: Chronic obstructive pulmonary disease, unspecified COPD type (HCC) Cough MQ: XC2_6 EXAM DATE/TIME: 09/16/2021 5:10 PM COMPARISON: Chest x-ray on 07/18/2021. RESULT: Lines, tubes, and devices: None. Lungs and pleura: Slightly small lung volume. Persistent eventration of the right hemidiaphragm is noted. Mild opacity or atelectasis noted in the overlying the left lower lung. There is left-sided small pleural effusion, probably slightly worsened. No right-sided pleural effusion. No pneumothorax. Cardiomediastinal silhouette: Stable cardiac silhouette, with atherosclerotic calcifications in the thoracic aorta. A medium to large hiatal hernia is present. Bones and soft tissues: Status post median sternotomy. The spine shows degenerative changes and probably multilevel vertebral body compression deformities/fractures . IMPRESSION IMPRESSION: Findings as described above. Ventilating Expert: PEYTON Transcribe Date/Time: Sep 18 2021 8:40A Dictated by : DEEPAK CHILD MD This examination was interpreted and the report reviewed and electronically signed by: DEEPAK CHILD MD on Sep 18 2021 8:47AM EST [facility] XR Chest PA and LateralOrder ed By: [facility] Provider on 09-18-2021 [facility] XR Chest PA and Lateralon Radiology Study observation (narrative) [facility] XR Chest PA and Lateralon IMPRESSION: No acute radiographic abnormality. Ventilating Expert: PEYTON Transcribe Date/Time: Jul 20 2021 2:55P Dictated by : JERRI AYOUB DO This examination was interpreted and the report reviewed and electronically signed by: JERRI AYOUB DO on Jul 20 2021 2:57PM [facility] DIVISION OF RADIOLOGY * * *Final Report* * * DATE OF EXAM: Jul 20 2021 2:53PM WOX [id number] - XR CHEST 2V FRONTAL/LAT / PROCEDURE REASON: Cough * * * * Physician Interpretation * * * * EXAMINATION: CHEST RADIOGRAPH (2 VIEW FRONTAL & LATERAL) CLINICAL HISTORY: Cough MQ: XC2_6 EXAM DATE/TIME: 07/20/2021 2:53 PM COMPARISON: CT abdomen pelvis 02/08/2021 chest x-ray 06/02/2021 RESULT: Lines, tubes, and devices: None. Lungs and pleura: No consolidation. No lung mass. No pleural effusion. No pneumothorax. Cardiomediastinal silhouette: Normal cardiomediastinal silhouette. Moderate size hiatal hernia noted. Marked elevation of the RIGHT hemidiaphragm is again noted there has been elevated dating back to at least 2000 Bones and soft tissues: Unremarkable. DIVISION OF RADIOLOGY Provider, Damian palacio [place] - 07/20/2021 * * *Final Report* * * DATE OF EXAM: Jul 20 2021 2:53PM WOX [id number] - XR CHEST 2V FRONTAL/LAT / PROCEDURE REASON: Cough * * * * Physician Interpretation * * * * EXAMINATION: CHEST RADIOGRAPH (2 VIEW FRONTAL & LATERAL) CLINICAL HISTORY: Cough MQ: XC2_6 EXAM DATE/TIME: 07/20/2021 2:53 PM COMPARISON: CT abdomen pelvis 02/08/2021 chest x-ray 06/02/2021 RESULT: Lines, tubes, and devices: None. Lungs and pleura: No consolidation. No lung mass. No pleural effusion. No pneumothorax. Cardiomediastinal silhouette: Normal cardiomediastinal silhouette. Moderate size hiatal hernia noted. Marked elevation of the RIGHT hemidiaphragm is again noted there has been elevated dating back to at least 2000 Bones and soft tissues: Unremarkable. IMPRESSION IMPRESSION: No acute radiographic abnormality. Ventilating Expert: PEYTON Transcribe Date/Time: Jul 20 2021 2:55P Dictated by : JERRI AYOUB DO This examination was interpreted and the report reviewed and electronically signed by: JERRI AYOUB DO on Jul 20 2021 2:57PM EST [facility] Radiology [facility]narrative[facility] Chest PA and LateralOrder ed By: [facility] Provider on 07-20-2021 [facility] XR Chest PA and Lateralon IMPRESSION: Small bilateral pleural effusions and right middle lobe atelectasis. No definite focal consolidation or pulmonary edema. Ventilating Expert: PEYTON Transcribe Date/Time: Jun 02 2021 3:38P Dictated by : KIANA REINOSO MD This examination was interpreted and the report reviewed and electronically signed by: KIANA REINOSO MD on Jun 02 2021 3:44PM [facility] DIVISION OF RADIOLOGY * * *Final Report* * * DATE OF EXAM: Jun 02 2021 12:14PM WOX 5291 - XR CHEST 2V FRONTAL/LAT / PROCEDURE REASON: multiple diagnoses * * * * Physician Interpretation * * * * EXAMINATION: CHEST RADIOGRAPH (2 VIEW FRONTAL & LATERAL) CLINICAL HISTORY: Bacterial pneumonia. Chronic obstructive pulmonary disease, unspecified COPD type (HCC). MQ: XC2_6 EXAM DATE/TIME: 06/02/2021 12:14 PM COMPARISON: Comparison is made to prior chest dated 04/26/2020 RESULT: Lines, tubes, and devices: None. Lungs and pleura: Hypoventilatory change and chronic eventration of the right hemidiaphragm limits evaluation of the aerated lung. There are may be atelectasis at the right middle lobe. Left lung base is poorly visualized due to large hiatal hernia. Chronic nodular scarring within the lingula is unchanged. Within these limitations there is no acute focal consolidation. Blunting of both posterior sulci may indicate mild pleural effusions. There is no vascular redistribution to suggest pulmonary edema. Cardiomediastinal silhouette: The cardiac, mediastinal and hilar shadows are unchanged with enlarged cardiac silhouette and median sternotomy changes. Other: The bony structures are intact DIVISION OF RADIOLOGY Provider, [facility] - 06/02/2021 * * *Final Report* * * DATE OF EXAM: Jun 02 2021 12:14PM WOX 5291 - XR CHEST 2V FRONTAL/LAT / PROCEDURE REASON: multiple diagnoses * * * * Physician Interpretation * * * * EXAMINATION: CHEST RADIOGRAPH (2 VIEW FRONTAL & LATERAL) CLINICAL HISTORY: Bacterial pneumonia. Chronic obstructive pulmonary disease, unspecified COPD type (HCC). MQ: XC2_6 EXAM DATE/TIME: 06/02/2021 12:14 PM COMPARISON: Comparison is made to prior chest dated 04/26/2020 RESULT: Lines, tubes, and devices: None. Lungs and pleura: Hypoventilatory change and chronic eventration of the right hemidiaphragm limits evaluation of the aerated lung. There are may be atelectasis at the right middle lobe. Left lung base is poorly visualized due to large hiatal hernia. Chronic nodular scarring within the lingula is unchanged. Within these limitations there is no acute focal consolidation. Blunting of both posterior sulci may indicate mild pleural effusions. There is no vascular redistribution to suggest pulmonary edema. Cardiomediastinal silhouette: The cardiac, mediastinal and hilar shadows are unchanged with enlarged cardiac silhouette and median sternotomy changes. Other: The bony structures are intact IMPRESSION IMPRESSION: Small bilateral pleural effusions and right middle lobe atelectasis. No definite focal consolidation or pulmonary edema. Ventilating Expert: PEYTON Transcribe Date/Time: Jun 02 2021 3:38P Dictated by : KIANA REINOSO MD This examination was interpreted and the report reviewed and electronically signed by: KIANA REINOSO MD on Jun 02 2021 3:44PM EST [facility] Radiology Study observation (narrative) [facility] XR Chest PA and LateralOrder ed By: [facility] Provider on 06-02-2021 [facility] No Panel Informationon 06-21 IMPRESSION: New age-indeterminate compression fractures of T10 and T11 vertebral bodies. Stable chronic L1 vertebral plana. Thoracolumbar scoliosis and multilevel degenerative changes as described. Ventilating Expert: PEYTON Transcribe Date/Time: Jun 21 2020 2:40P Dictated by : ANNE BENTON DO This examination was interpreted and the report reviewed and electronically signed by: ANNE BENTON DO on Jun 21 2020 2:56PM [facility] DIVISION OF RADIOLOGY Radiology Study observation (narrative) [facility] No Panel InformationOrdered By: Ccf Provider on 06-21-2020 [facility] XR Lumbar spine 3 Viewson * * *Final Report* * * DATE OF EXAM: Jun 21 2020 12:36PM WOX 5228 - XR LUMBAR 3V AP/LAT/L5-S1 / PROCEDURE REASON: multiple diagnoses * * * * Physician Interpretation * * * * EXAMINATION: XR THORACIC 3V AP/LAT/SWIMMERS, XR LUMBAR 3V AP/LAT/L5-S1 PATIENT/TECHNOLOGIST PROVIDED HISTORY: Pt. states mid to low back pain for about 6 weeks. No known injury. CLINICAL INFORMATION: 74 years old Female with DDD (degenerative disc disease), lumbar. Exacerbation of chronic back pain. Exacerbation of chronic back pain. TECHNIQUE: XR THORACIC 3V AP/LAT/SWIMMERS, XR LUMBAR 3V AP/LAT/L5-S1. 3 views. 3 images of the thoracic spine and lumbar spine. COMPARISON: CT abdomen pelvis 05/02/2018, lumbar spine radiographs 04/30/2019 RESULT: Counting reference: Lumbosacral junction. For the purposes of this report, L4-5 is considered the level of the iliac crest and there are 5 lumbar-type vertebrae. Anatomic variant: Transitional L5 vertebral body with pseudoarticulation of the left L5 transverse process with the sacral ala. Alignment: Marked levoscoliosis of the lumbar spine apex at L1 with compensatory mild dextroscoliosis of the midthoracic spine. Grade 1 anterolisthesis C4 on C5. Exaggerated thoracic kyphosis. Mild retrolisthesis L2 on L3. Vertebral bodies: Diffuse osteopenia with chronic L1 vertebral plana. New superior endplate compression deformity T10 and T11 vertebral bodies with sclerosis. Spine articulations: Severe disc space narrowing C5-C6 and C6-C7. Mild multilevel endplate degenerative changes in thoracic spine. Multilevel disc space narrowing with marked leftward eccentric disc space narrowing L4-L5 and L5-S1. Moderate-marked multilevel lumbar facet degenerative change. Other: Left greater than right sacroiliac joint degenerative change. Large hiatal hernia. Status post median sternotomy and aortic valve replacement. Stable elevation/eventration of the right hemidiaphragm and bibasilar atelectasis. Stable cardiomegaly. Atherosclerotic calcification of the thoracoabdominal aorta. Moderate-large colonic stool burden. DIVISION OF RADIOLOGY Provider, [facility] - 06/21/2020 * * *Final Report* * * DATE OF EXAM: Jun 21 2020 12:36PM WOX 5228 - XR LUMBAR 3V AP/LAT/L5-S1 / PROCEDURE REASON: multiple diagnoses * * * * Physician Interpretation * * * * EXAMINATION: XR THORACIC 3V AP/LAT/SWIMMERS, XR LUMBAR 3V AP/LAT/L5-S1 PATIENT/TECHNOLOGIST PROVIDED HISTORY: Pt. states mid to low back pain for about 6 weeks. No known injury. CLINICAL INFORMATION: 74 years old Female with DDD (degenerative disc disease), lumbar. Exacerbation of chronic back pain. Exacerbation of chronic back pain. TECHNIQUE: XR THORACIC 3V AP/LAT/SWIMMERS, XR LUMBAR 3V AP/LAT/L5-S1. 3 views. 3 images of the thoracic spine and lumbar spine. COMPARISON: CT abdomen pelvis 05/02/2018, lumbar spine radiographs 04/30/2019 RESULT: Counting reference: Lumbosacral junction. For the purposes of this report, L4-5 is considered the level of the iliac crest and there are 5 lumbar-type vertebrae. Anatomic variant: Transitional L5 vertebral body with pseudoarticulation of the left L5 transverse process with the sacral ala. Alignment: Marked levoscoliosis of the lumbar spine apex at L1 with compensatory mild dextroscoliosis of the midthoracic spine. Grade 1 anterolisthesis C4 on C5. Exaggerated thoracic kyphosis. Mild retrolisthesis L2 on L3. Vertebral bodies: Diffuse osteopenia with chronic L1 vertebral plana. New superior endplate compression deformity T10 and T11 vertebral bodies with sclerosis. Spine articulations: Severe disc space narrowing C5-C6 and C6-C7. Mild multilevel endplate degenerative changes in thoracic spine. Multilevel disc space narrowing with marked leftward eccentric disc space narrowing L4-L5 and L5-S1. Moderate-marked multilevel lumbar facet degenerative change. Other: Left greater than right sacroiliac joint degenerative change. Large hiatal hernia. Status post median sternotomy and aortic valve replacement. Stable elevation/eventration of the right hemidiaphragm and bibasilar atelectasis. Stable cardiomegaly. Atherosclerotic calcification of the thoracoabdominal aorta. Moderate-large colonic stool burden. IMPRESSION IMPRESSION: New age-indeterminate compression fractures of T10 and T11 vertebral bodies. Stable chronic L1 vertebral plana. Thoracolumbar scoliosis and multilevel degenerative changes as described. Ventilating Expert: PEYTON Transcribe Date/Time: Jun 21 2020 2:40P Dictated by : ANNE BENTON DO This examination was interpreted and the report reviewed and electronically signed by: ANNE BENTON DO on Jun 21 2020 2:56PM [facility] XR Thoracic spine AP and Lat eral and Swimmerson 06-21-2020 * * *Final Report* * * DATE OF EXAM: Jun 21 2020 12:36PM WOX 5261 - XR THORACIC 3V AP/LAT/SWIMMERS / PROCEDURE REASON: multiple diagnoses * * * * Physician Interpretation * * * * EXAMINATION: XR THORACIC 3V AP/LAT/SWIMMERS, XR LUMBAR 3V AP/LAT/L5-S1 PATIENT/TECHNOLOGIST PROVIDED HISTORY: Pt. states mid to low back pain for about 6 weeks. No known injury. CLINICAL INFORMATION: 74 years old Female with DDD (degenerative disc disease), lumbar. Exacerbation of chronic back pain. Exacerbation of chronic back pain. TECHNIQUE: XR THORACIC 3V AP/LAT/SWIMMERS, XR LUMBAR 3V AP/LAT/L5-S1. 3 views. 3 images of the thoracic spine and lumbar spine. COMPARISON: CT abdomen pelvis 05/02/2018, lumbar spine radiographs 04/30/2019 RESULT: Counting reference: Lumbosacral junction. For the purposes of this report, L4-5 is considered the level of the iliac crest and there are 5 lumbar-type vertebrae. Anatomic variant: Transitional L5 vertebral body with pseudoarticulation of the left L5 transverse process with the sacral ala. Alignment: Marked levoscoliosis of the lumbar spine apex at L1 with compensatory mild dextroscoliosis of the midthoracic spine. Grade 1 anterolisthesis C4 on C5. Exaggerated thoracic kyphosis. Mild retrolisthesis L2 on L3. Vertebral bodies: Diffuse osteopenia with chronic L1 vertebral plana. New superior endplate compression deformity T10 and T11 vertebral bodies with sclerosis. Spine articulations: Severe disc space narrowing C5-C6 and C6-C7. Mild multilevel endplate degenerative changes in thoracic spine. Multilevel disc space narrowing with marked leftward eccentric disc space narrowing L4-L5 and L5-S1. Moderate-marked multilevel lumbar facet degenerative change. Other: Left greater than right sacroiliac joint degenerative change. Large hiatal hernia. Status post median sternotomy and aortic valve replacement. Stable elevation/eventration of the right hemidiaphragm and bibasilar atelectasis. Stable cardiomegaly. Atherosclerotic calcification of the thoracoabdominal aorta. Moderate-large colonic stool burden. DIVISION OF RADIOLOGY Provider, [facility] - 06/21/2020 * * *Final Report* * * DATE OF EXAM: Jun 21 2020 12:36PM WOX 5261 - XR THORACIC 3V AP/LAT/SWIMMERS / PROCEDURE REASON: multiple diagnoses * * * * Physician Interpretation * * * * EXAMINATION: XR THORACIC 3V AP/LAT/SWIMMERS, XR LUMBAR 3V AP/LAT/L5-S1 PATIENT/TECHNOLOGIST PROVIDED HISTORY: Pt. states mid to low back pain for about 6 weeks. No known injury. CLINICAL INFORMATION: 74 years old Female with DDD (degenerative disc disease), lumbar. Exacerbation of chronic back pain. Exacerbation of chronic back pain. TECHNIQUE: XR THORACIC 3V AP/LAT/SWIMMERS, XR LUMBAR 3V AP/LAT/L5-S1. 3 views. 3 images of the thoracic spine and lumbar spine. COMPARISON: CT abdomen pelvis 05/02/2018, lumbar spine radiographs 04/30/2019 RESULT: Counting reference: Lumbosacral junction. For the purposes of this report, L4-5 is considered the level of the iliac crest and there are 5 lumbar-type vertebrae. Anatomic variant: Transitional L5 vertebral body with pseudoarticulation of the left L5 transverse process with the sacral ala. Alignment: Marked levoscoliosis of the lumbar spine apex at L1 with compensatory mild dextroscoliosis of the midthoracic spine. Grade 1 anterolisthesis C4 on C5. Exaggerated thoracic kyphosis. Mild retrolisthesis L2 on L3. Vertebral bodies: Diffuse osteopenia with chronic L1 vertebral plana. New superior endplate compression deformity T10 and T11 vertebral bodies with sclerosis. Spine articulations: Severe disc space narrowing C5-C6 and C6-C7. Mild multilevel endplate degenerative changes in thoracic spine. Multilevel disc space narrowing with marked leftward eccentric disc space narrowing L4-L5 and L5-S1. Moderate-marked multilevel lumbar facet degenerative change. Other: Left greater than right sacroiliac joint degenerative change. Large hiatal hernia. Status post median sternotomy and aortic valve replacement. Stable elevation/eventration of the right hemidiaphragm and bibasilar atelectasis. Stable cardiomegaly. Atherosclerotic calcification of the thoracoabdominal aorta. Moderate-large colonic stool burden. IMPRESSION IMPRESSION: New age-indeterminate compression fractures of T10 and T11 vertebral bodies. Stable chronic L1 vertebral plana. Thoracolumbar scoliosis and multilevel degenerative changes as described. 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 Left ventricular Ejection fraction 65 % [facility] Work Phone: Office Visit: [facility] 02-10-20 17 Documentation of current medications (procedure) Done Invalid Interpretation Code [facility] Work Phone: [phone] Fall risk assessment No [employer] Work Phone: [phone] Protein mass conc Done [employer] Work Phone: [phone] Lab Report: Basic Metabolic Profile (BMP)on 12-26-2016 Anion gap 4 mmol/L Low 5-15 [employer] Work Phone: [phone] Anion gap molar conc 4 mmol/L Low 5-15 [employer] Work Phone: [phone] BUN/Creatinine Ratio 23.8 RATIO High 10-20 [employer] Work Phone: [phone] Calcium 9.2 mg/dL 8.5-10.1 [employer] Work Phone: [phone] Chloride 101 mmol/L 98-107 [employer] Work Phone: [phone] CO2 35.0 mmol/L High 21.0-32.0 [employer] Work Phone: [phone] CO2 ppres (BldV) 35.0 mmol/L High 21.0-32.0 [employer] Work Phone: [phone] Creatinine 1.01 mg/dL 0.55-1.02 [employer] Work Phone: [phone] eGFR (non-black) 57 mL/min/{1.73_m2} Low >60 [employer] Work Phone: [phone] eGFR (non-black) 69 mL/min/{1.73_m2} Invalid Interpretation Code >60 [employer] Work Phone: [phone] EST GFR - AA 69 mL/min >60 [employer] Work Phone: [phone] Glucose 86 mg/dL Invalid Interpretation Code 70-110 [employer] Work Phone: [phone] Glucose mass conc 86 mg/dL 70-110 [employer] Work Phone: [phone] Potassium 3.8 mmol/L 3.5-5.1 [employer] Work Phone: [phone] Sodium 140 mmol/L 136-145 [employer] Work Phone: Urea nitrogen 24 mg/dL High 7-18 [facility] Work Phone: [phone] 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 Erythrocyte distribution width (RBC) [Ratio] 16.3 % High [facility] Work Phone: [phone] Erythrocytes (RBC) 4.82 10*6/uL Invalid Interpretation Code [facility] Work [phone] Hematocrit (Bld) [Volume fraction] 40.0 % [facility] Work Phone: [phone] Hematocrit (HCT) 40.0 % Invalid Interpretation Code [facility] Work [phone] Hemoglobin (Bld) [Mass/Vol] 11.2 g/dL Low [facility] Work Phone: [phone] MCH 23.2 pg Low [facility] Work Phone: [phone] MCH (RBC) [Entitic mass] 23.2 pg Low [facility] Work Phone: [phone] MCHC 28.0 g/dL Low [facility] Work Phone: [phone] MCHC (RBC) [Mass/Vol] 28.0 g/dL Low [facility] Work Phone: [phone] MCV 83.0 fL Invalid Interpretation Code [facility] Work Phone: [phone] MCV (RBC) [Entitic vol] 83.0 fL [facility] Work Phone: [phone] Natriuretic peptide B (Bld) [Mass/Vol] 319 pg/mL High [facility] Work Phone: [phone] Platelet mean volume (Bld) [Entitic vol] 10.4 fL [facility] Work Phone: [phone] Platelets 408 10*3/mm3 High [facility] Work Phone: [phone] Platelets (Bld) [#/Vol] 408 10*3/mm3 High [facility] Work Phone: [phone] PMV by Eliza 10.4 fL Invalid Interpretation Code [facility] Work Phone: [phone] RBC (Bld) [#/Vol] 4.82 10*6/uL [facility] Work Phone: [phone] RDW-CA 16.3 % High [facility] Work Phone: [phone] WBC (Bld) [#/Vol] 4.90 10*3/uL [facility] Work Phone: [phone] WBC (Leukocytes) 4.90 10*3/uL Invalid Interpretation Code [facility] Work Phone: [phone] Office Visiton 08-10-2016 Dietary management education, guidance, and counseling (procedure) yes Invalid Interpretation Code [facility] Work Phone: [phone] Documentation of current medications (procedure) Done Invalid Interpretation Code [facility] Work Phone: [phone] Tobacco smoking status NHIS Never smoker [facility] Work Phone: [phone] Tobacco use CPHS Never smoker Invalid Interpretation Code [facility] Work Phone: [phone] Lab Report: Serum Creatinine AND GFRon 05-12-2016 Creatinine [Mass/Vol] 1.11 mg/dL 0.55-1.20 [facility] Work Phone: [phone] EST GFR - AA 62 mL/min >60 [facility] Work Phone: [phone] GFR/1.73 sq M predicted among non-blacks MDRD (S/P/Bld) [Vol rate/Area] 51 mL/min/{1.73_m2} Low >60 [facility] Work Phone: [phone] Clinical Lists Updateon Left ventricular Ejection fraction 60 % Invalid Interpretation Code [facility] Work Phone: [phone] Lab Report: Basic Metabolic Profile (BMP)on 07-29-2015 Anion gap [Moles/Vol] 6 mmol/L 5-15 [facility] Work Phone: [phone] Calcium [Mass/Vol] 8.7 mg/dL 8.5-10.1 [facility] Work Phone: [phone] Chloride [Moles/Vol] 105 mmol/L 98-[address] [facility] Work Phone: [phone] CO2 (BldV) [Partial pressure] 31.0 mmol/L 21.0-32.0 [facility] Work Phone: [phone] Glucose [Mass/Vol] 78 mg/dL 70-110 [facility] Work Phone: [phone] Potassium [Moles/Vol] 4.0 mmol/L 3.5-5.1 [facility] Work Phone: [phone] Sodium [Moles/Vol] 142 mmol/L 136-145 [facility] Work Phone: [phone] Urea nitrogen [Mass/Vol] 17 mg/dL 7-18 [facility] Work Phone: [phone] Urea nitrogen/Creatinine [Mass ratio] 18.6 RATIO 10-20 [facility] Work Phone: [phone]) Lab Report: Lipid Profileon 07-12-2015 Cholesterol [Mass/Vol] 208 mg/dL High 200 [facility] Work Phone: [phone] Cholesterol in HDL [Mass/Vol] 57 mg/dL [facility] Work Phone: [phone] Cholesterol in LDL [Mass/Vol] 111 mg/dL 0-130 [facility] Work Phone: [phone] Lipoprotein.pre-beta [Mass/Vol] 40 mg/dL 5-40 [facility] Work Phone: [phone] Triglyceride [Mass/Vol] 198 mg/dL [facility] Work Phone: [phone] Lab Report: Liver Profileon 07-12-2015 Albumin [Mass/Vol] 3.5 g/dL 3.4-5.0 [facility] Work Phone: [phone] Alkaline phosphatase (ALP) 79 U/L Invalid Interpretation Code 50-136 [facility] Work Phone: [phone] ALP (Bld) [Catalytic activity/Vol] 79 U/L 50-136 [facility] Work Phone: [phone] ALT [Catalytic activity/Vol] 36 U/L 12-78 [facility] Work Phone: [phone] AST [Catalytic activity/Vol] 26 U/L 15-37 [facility] Work Phone: [phone] Bilirubin [Mass/Vol] 0.50 mg/dL 0.20-1.[address] [facility] Work Phone: [phone] Bilirubin.direct [Mass/Vol] 0.11 mg/dL 0.00-0.30 [facility] Work Phone: [phone] Globulin 3.8 g/dL High 2.3-3.5 [facility] Work Phone: [phone] Globulin (S) [Mass/Vol] 3.8 g/dL High 2.3-3.5 [facility] Work Phone: [phone] Protein [Mass/Vol] 7.3 g/dL 6.4-8.2 [facility] Work Phone: [phone]) Lab Report: CBC W/Diff, Auto matedon 01-18-2015 Absolute Neut 4.7 X10 3/UL 2.0-7.7 [facility] Work Phone: [phone] Absolute Neutrophil count 4.7 X10 3/UL Invalid Interpretation Code 2.0-7.7 [facility] Work Phone: [phone] Basophils/100 leukocytes 0.6 % Invalid Interpretation Code 0-1 [facility] Work Phone: [phone] Basophils/100 WBC (Bld) 0.6 % 0-1 [facility] Work Phone: [phone] Eosinophils/100 leukocytes 4.7 % Invalid Interpretation Code 0-5 [facility] Work Phone: [phone] Eosinophils/100 WBC (Bld) 4.7 % 0-5 [facility] Work Phone: [phone] Erythrocyte distribution width (RBC) [Ratio] 44.9 fL High 35.1-43.9 [facility] Work Phone: [phone] Immature granulocytes (Bld) [#/Vol] 0.100 % 0.0-0.9 [facility] Work Phone: [phone] immature granulocytes, percentage of total cells, blood 0.100 % Invalid Interpretation Code 0.0-0.9 [facility] Work Phone: [phone] Lymphocytes 1.27 X10 3/UL Invalid Interpretation Code 0.83-4.51 [facility] Work Phone: [phone] Lymphocytes (Bld) [#/Vol] 1.27 X10 3/UL 0.83-4.51 [facility] Work Phone: [phone] Lymphocytes/100 leukocytes 18.6 % Low 19-41 [facility] Work Phone: [phone] Lymphocytes/100 WBC (Bld) 18.6 % Low 19-41 [facility] Work Phone: [phone] Monocytes/100 leukocytes 7.3 % Invalid Interpretation Code 0-10 [facility] Work Phone: [phone] Monocytes/100 WBC (Bld) 7.3 % 0-10 [facility] Work Phone: [phone] Neutrophils/100 leukocytes 68.7 % Invalid Interpretation Code 47-70 [facility] Work Phone: [phone] Neutrophils/100 WBC (Bld) 68.7 % 47-70 [facility] Work Phone: [phone] red blood cell distribution width, size density 44.9 fL High 35.1-43.9 [facility] Work Phone: [phone] Lab Report: Magnesiumon 12-29 Magnesium [Mass/Vol] 1.7 mg/dL Low 1.8-2.4 [facility] Work Phone: [phone] Lab Report: Prothrombin Time w/INRon 01-18-2015 INR Coag (PPP) [Relative time] 2.7 {INR} [facility] Work Phone: [phone] INR in blood by coagulation 2.7 {INR} Invalid Interpretation Code [facility] [employer] Work Phone: [phone] PT Coag (PPP) [Time] 28.4 s High 11.7-14.9 [facility] Work Phone: [phone]) Lab Report: T4 Total, Thyrox inon 01-18-2015 T4 [Mass/Vol] 8.8 ug/dL 4.8-13.9 [facility] [employer] Work Phone: [phone] Lab Report: Thyroid Stim Hor angelito (TSH)on 01-18-2015 TSH Qn 0.61 u[iU]/mL 0.358-3.74 [facility] Work Phone: Replaced Document: Radha Michele 01-12-2015 EKG QRS axis 4 deg [facility] Work Phone: electrocardiogram interpretation Sinus Rhythm WITHIN NORMAL LIMITS Invalid Interpretation Code [facility] Work Phone: [phone] GE use only - for [employer] import when terms are not otherwise specified 431 ms Invalid Interpretation Code [facility] Work Phone: Interpretation Sinus Rhythm WITHIN NORMAL LIMITS [facility] Work Phone: [phone] P [place] 25 deg [facility] Work Phone: P wave axis, electrocardiogram 25 deg Invalid Interpretation Code [facility] Work Phone: [place] Interval 174 ms [facility] Work Phone: [place] interval, electrocardiogram 174 ms Invalid Interpretation Code [facility] Work Phone: Pulse (Heart Rate) 69 /min Invalid Interpretation Code [facility] Work Phone: QRS axis, electrocardiogram 4 deg Invalid Interpretation Code [facility] Work Phone: QRS Duration 92 ms [facility] Work Phone: QRS duration, electrocardiogram 92 ms Invalid Interpretation Code [facility] Work Phone: QT Interval new path ms [facility] Work Phone: QT interval, electrocardiogram new path ms Invalid Interpretation Code [facility] Work Phone: QTc Rose 431 ms [facility] Work Phone: T [place] 67 deg [facility] Work Phone: T wave axis, electrocardiogram 67 deg Invalid Interpretation Code [facility] Work Phone: Microbiology: Culture, Noseo n 07-16-2014 CUN Tobramycin $ <=1 S [facility] Work Phone: nose culture Tobramycin $ <=1 S Invalid Interpretation Code [facility] Work Phone: Office Visiton 07-15-2014 cardiac risk group C [facility] Work Phone: [phone] General cardiovascular disease 10Y risk [#] [place]Har[facility] N/A [facility] Work Phone: Office Visiton 10-30-2013 Alcoholism counseling (procedure) no Invalid Interpretation Code [facility] Work Phone: [phone] Protein mass conc no [facility] Work Phone: [phone] Clinical Lists 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: 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 Natriuretic peptide B (Bld) [Mass/Vol] 811.9 pg/mL High [facility] Work Phone: [phone] Lab Report: SEDon 06-06-2013 ESR (Bld) [Velocity] 13 mm/h Normal 0-[address] [facility] Work Phone: [phone] Clinical Lists Update: 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 MCHC 31.4 % Invalid Interpretation Code [facility] Work Phone: [phone] MCHC (RBC) [Mass/Vol] 31.4 % [facility] Work Phone: [phone] Bronchoalveolar lavage cultu re with Gram stain Respiratory Culture Pseudomonas aeroginosa [facility] Work Phone: Respiratory Culture Citrobacter freundii [facility] Work Phone: Culture, urine Bacteria identified Cx Nom (U) Mixed Gram Pos & Gram Neg Org [facility] Work Phone: Bacteria identified Cx Nom (U) Culture exhibits no growth. [facility] Work Phone: Gram stain for investigation of transfusion reaction Microscopic observation Gram stain Nom (Unsp spec) [facility] Work Phone: Influenza virus A and B and SARS-CoV-2 (COVID-19) Ag panel - Upper respiratory specim SARS-CoV-2 (COVID-19) RNA DELFINA+probe Ql (Resp) [facility] Work Phone: No Panel Information Influenza Types A,B Direct FA (SETH) [facility] Work Phone: SARS-CoV-2 & FLU Antigen (Rapid) [facility] Work Phone: Vital Signs Date Time Vital Sign Value Performing Clinician Facility 04-13-2025 11:23-0400 Diastolic blood pressure 60 mm[Hg] Shawn Santana MD Work Phone: [facility] 04-13-2025 11:23-0400 Heart rate 101 /min Shawn Santana MD Work Phone: [facility] 04-13-2025 11:23-0400 SaO2% (BldA) [Mass fraction] 90 % Shawn Santana MD Work Phone: [facility] Comment on above: 4L of O2 04-13-2025 11:23-0400 Systolic blood pressure 95 mm[Hg] Shawn Santana MD Work Phone: [facility] 03-23-2025 09:01-0400 Body mass index (BMI) [Ratio] 20.1 kg/m2 Dr. Kolby Kim MD Work Phone: [facility] 03-23-2025 09:01-0400 Body temperature 97.3 [degF] Dr. Kolby Kim MD Work Phone: [facility] 03-23-2025 09:01-0400 Body weight 46.[address] Kolby Kim MD Work Phone: [facility] 03-23-2025 09:01-0400 Diastolic blood pressure 63 mm[Hg] Dr. Kolby Kim MD Work Phone: [facility] 03-23-2025 09:01-0400 Heart rate 102 /min Dr. Kolby Kim MD Work Phone: [facility] 03-23-2025 09:01-0400 Inhaled oxygen flow rate 4 L/min Dr. Kolby Kim MD Work Phone: [facility] 03-23-2025 09:01-0400 Respiratory rate 16 /min Dr. Kolby Kim MD Work Phone: [facility] 03-23-2025 09:01-0400 SaO2% (BldA) [Mass fraction] 93 % Dr. Kolby Kim MD Work Phone: [facility] 03-23-2025 09:01-0400 Systolic blood pressure 94 mm[Hg] Dr. Kolby Kim MD Work Phone: [facility] 01-12-2025 13:19-0400 Body mass index (BMI) [Ratio] 21.29 kg/m2 Kolby Kim MD Work Phone: [facility] 01-12-2025 13:19-0400 Body weight 49.44 kg Kolby Kim MD Work Phone: [facility] 01-12-2025 13:19-0400 Diastolic blood pressure 58 mm[Hg] Kolby Kim MD Work Phone: [facility] 01-12-2025 13:19-0400 Heart rate 100 /min Kolby Kim MD Work Phone: [facility] 01-12-2025 13:19-0400 SaO2% (BldA) [Mass fraction] 95 % Kolby Kim MD Work Phone: [facility] 01-12-2025 13:19-0400 Systolic blood pressure 94 mm[Hg] Kolby Kim MD Work Phone: [facility] 10-13-2024 12:02-0400 Body temperature 97.59 [degF] Shawn Santana MD Work Phone: [facility] 10-13-2024 12:02-0400 Diastolic blood pressure 65 mm[Hg] Shawn Santana MD Work Phone: [facility] 10-13-2024 12:02-0400 Heart rate 64 /min Shawn Santana MD Work Phone: [facility] 10-13-2024 12:02-0400 Systolic blood pressure 101 mm[Hg] Shawn Santana MD Work Phone: [facility] 07-09-2024 13:27-0500 Body mass index (BMI) [Ratio] 22.22 kg/m2 Kolby Kim MD Work Phone: [facility] 07-09-2024 13:27-0500 Body weight 51.6 kg Kolby Kim MD Work Phone: [facility] 07-09-2024 13:27-0500 Diastolic blood pressure 62 mm[Hg] Kolby Kim MD Work Phone: [facility] 07-09-2024 13:27-0500 Heart rate 100 /min Kolby Kim MD Work Phone: [facility] 07-09-2024 13:27-0500 Systolic blood pressure 108 mm[Hg] Kolby Kim MD Work Phone: [facility] 04-14-2024 10:41-0400 Diastolic blood pressure 64 mm[Hg] Shawn Santana MD Work Phone: [facility] 04-14-2024 10:41-0400 Heart rate 68 /min Shawn Santana MD Work Phone: [facility] 04-14-2024 10:41-0400 SaO2% (BldA) [Mass fraction] 94 % Shawn Santana MD Work Phone: [facility] Comment on above: 3L O2 04-14-2024 10:41-0400 Systolic blood pressure 102 mm[Hg] Shawn Santana MD Work Phone: [facility] 04-09-2024 15:14-0400 Diastolic blood pressure 62 mm[Hg] 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: [facility] 04-09-2024 15:14-0400 Heart rate 69 /min 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44 kg Kolby Kim MD Work Phone: [facility] 01-02-2024 13:30-0400 Diastolic blood pressure 58 mm[Hg] Kolby Kim MD Work Phone: [facility] 01-02-2024 13:30-0400 Heart rate 67 /min Kolby Kim MD Work Phone: [facility] 01-02-2024 13:30-0400 SaO2% (BldA) [Mass fraction] 94 % Kolby Kim MD Work Phone: [facility] 01-02-2024 13:30-0400 Systolic blood pressure 110 mm[Hg] Kolby Kim MD Work Phone: [facility] 12-03-2023 10:24-0400 Body height 152.4 cm Shawn Santana MD Work Phone: [facility] 12-03-2023 10:24-0400 Diastolic blood pressure 71 mm[Hg] Shawn Santana MD Work Phone: [facility] 12-03-2023 10:24-0400 Heart rate 60 /min Shawn Santana MD Work Phone: [facility] 12-03-2023 10:24-0400 SaO2% (BldA) [Mass fraction] 94 % Shawn Santana MD Work Phone: [facility] Comment on above: 3L Via Nasal Cannula 12-03-2023 10:24-0400 Systolic blood pressure 118 mm[Hg] Shawn Santana MD Work Phone: [facility] 06-27-2023 13:41-0500 Body height 152.4 cm Kolby Kim MD Work Phone: [facility] 06-27-2023 13:41-0500 Body weight 50.26 kg Kolby Kim MD Work Phone: [facility] 06-27-2023 13:41-0500 Diastolic blood pressure 62 mm[Hg] Kolby Kim MD Work Phone: [facility] 06-27-2023 13:41-0500 Heart rate 62 /min Kolby Kim MD Work Phone: [facility] 06-27-2023 13:41-0500 SaO2% (BldA) [Mass fraction] 94 % Kolby Kim MD Work Phone: [facility] 06-27-2023 13:41-0500 Systolic blood pressure 112 mm[Hg] Kolby Kim MD Work Phone: [facility] 06-04-2023 10:46-0500 Body temperature 97.81 [degF] Shawn Santana MD Work Phone: [facility] 06-04-2023 10:46-0500 Diastolic blood pressure 65 mm[Hg] Shawn Santana MD Work Phone: [facility] 06-04-2023 10:46-0500 Heart rate 61 /min Shawn Santana MD Work Phone: [facility] 06-04-2023 10:46-0500 SaO2% (BldA) [Mass fraction] 93 % Shawn Santana MD Work Phone: [facility] 06-04-2023 10:46-0500 Systolic blood pressure 120 mm[Hg] Shawn Santana MD Work Phone: [facility] 04-11-2023 18:55-0400 Diastolic blood pressure 89 mm[Hg] Dr. Kolby Kim Work Phone: [facility] 04-11-2023 18:55-0400 Heart rate 73 /min Dr. Kolby Kim Work Phone: [facility] 04-11-2023 18:55-0400 Respiratory rate 18 /min Dr. Kolby Kim Work Phone: [facility] 04-11-2023 18:55-0400 SaO2% (BldA) [Mass fraction] 94 % Dr. Kolby Kim Work Phone: [facility] 04-11-2023 18:55-0400 Systolic blood pressure 137 mm[Hg] Dr. Kolby Kim Work Phone: [facility] 04-11-2023 17:40-0400 Body temperature 98.1 [degF] Dr. Kolby Kim Work Phone: 2(428)855-233741 [place] [address] 04-11-2023 17:36-0400 Body mass index (BMI) [Ratio] 23.1 kg/m2 Dr. Kolby Kim Work Phone: 7(044)848-655341 [place] [address] 04-11-2023 17:36-0400 Body weight 53.[address] Kolby Kim Work Phone: 0(309)424-801141 [place] [address] 04-11-2023 15:50-0400 Body height 152.[address] Kolby Kim Work Phone: [facility] 04-11-2023 15:50-0400 Inhaled oxygen flow rate 3 L/min Dr. Kolby Kim Work Phone: [facility] 03-26-2023 14:51-0400 Body weight 49.44 kg Kolby Kim MD Work Phone: [facility] 03-26-2023 14:51-0400 Diastolic blood pressure 62 mm[Hg] Kolby Kim MD Work Phone: [facility] 03-26-2023 14:51-0400 Heart rate 50 /min Kolby Kim MD Work Phone: [facility] 03-26-2023 14:51-0400 Systolic blood pressure 112 mm[Hg] Kolby Kim MD Work Phone: [facility] 03-08-2023 19:32-0400 Diastolic blood pressure 62 mm[Hg] Dr. Kolby Kim Work Phone: [facility] 03-08-2023 19:32-0400 Heart rate 65 /min Dr. Kolby Kim Work Phone: [facility] 03-08-2023 19:32-0400 Respiratory rate 20 /min Dr. Kolby Kim Work Phone: [facility] 03-08-2023 19:32-0400 SaO2% (BldA) [Mass fraction] 96 % Dr. Kolby Kim Work Phone: [facility] 03-08-2023 19:32-0400 Systolic blood pressure 135 mm[Hg] Dr. Kolby Kim Work Phone: [facility] 03-08-2023 16:56-0400 Inhaled oxygen flow rate 4 L/min Dr. Kolby Kim Work Phone: [facility] 03-08-2023 16:17-0400 Body height 152.[address] Kolby Kim Work Phone: [facility] 03-08-2023 16:17-0400 Body temperature 97.7 [degF] Dr. Kolby Kim Work Phone: [facility] 03-08-2023 16:16-0400 Inhaled oxygen concentration 4 % Dr. Kolby Kim Work Phone: [facility] 02-26-2023 14:36-0400 Body weight 49.44 kg Kolby Kim MD Work Phone: [facility] 02-26-2023 14:36-0400 Diastolic blood pressure 62 mm[Hg] Kolby Kim MD Work Phone: [facility] 02-26-2023 14:36-0400 Heart rate 66 /min Kolby Kim MD Work Phone: [facility] 02-26-2023 14:36-0400 Systolic blood pressure 110 mm[Hg] Kolby Kim MD Work Phone: [facility] 02-05-2023 11:36-0400 Body mass index (BMI) [Ratio] 21.9 kg/m2 Dr. Kolby Kim Work Phone: 4(803)377-015541 [place] [address] 02-05-2023 11:36-0400 Body weight 50.[address] Kolby Kim Work Phone: 0(939)122-448035 [place] [address] 02-05-2023 11:36-0400 Diastolic blood pressure 67 mm[Hg] Dr. Kolby Kim Work Phone: 2(773)304-171435 [place] [address] 02-05-2023 11:36-0400 Heart rate 70 /min Dr. Kolby Kim Work Phone: 4(516)608-363135 [place] [address] 02-05-2023 11:36-0400 Inhaled oxygen flow rate 4 L/min Dr. Kolby Kim Work Phone: 9(024)164-235035 [place] [address] 02-05-2023 11:36-0400 Respiratory rate 18 /min Dr. Kolby Kim Work Phone: 7(471)356-767035 [place] [address] 02-05-2023 11:36-0400 Systolic blood pressure 111 mm[Hg] Dr. Kolby Kim Work Phone: 8(594)038-722435 [place] [address] 01-24-2023 08:55-0400 Body mass index (BMI) [Ratio] 22 kg/m2 Dr. Kolby Kim Work Phone: 3(016)834-980035 [place] [address] 01-24-2023 08:55-0400 Body temperature 97.3 [degF] Dr. Kolby Kim Work Phone: 0(532)583-855135 [place] [address] 01-24-2023 08:55-0400 Body weight 51.[address] Kolby Kim Work Phone: 6(462)205-382335 [place] [address] 01-24-2023 08:55-0400 Diastolic blood pressure 68 mm[Hg] Dr. Kolby Kim Work Phone: 4(984)539-888435 [place] [address] 01-24-2023 08:55-0400 Heart rate 68 /min Dr. Kolby Kim Work Phone: 9(006)457-455135 [place] [address] 01-24-2023 08:55-0400 Inhaled oxygen flow rate 4 L/min Dr. Kolby Kim Work Phone: 1(556)144-063135 [place] [address] 01-24-2023 08:55-0400 Respiratory rate 16 /min Dr. Kolby Kim Work Phone: [facility] 01-24-2023 08:55-0400 SaO2% (BldA) [Mass fraction] 91 % Dr. Kolby Kim Work Phone: [facility] 01-24-2023 08:55-0400 Systolic blood pressure 115 mm[Hg] Dr. Kolby Kim Work Phone: [facility] 01-13-2023 06:18-0400 Body mass index (BMI) [Ratio] 23.1 kg/m2 Dr. Kolby Kim Work Phone: 1(208)883-156135 [place] [address] 01-13-2023 06:18-0400 Body temperature 96.6 [degF] Dr. Kolby Kim Work Phone: [facility] 01-13-2023 06:18-0400 Body weight 53.[address] Kolby Kim Work Phone: 2(000)601-464941 [place] [address] 01-13-2023 06:18-0400 Diastolic blood pressure 68 mm[Hg] Dr. Kolby Kim Work Phone: 0(860)670-399635 [place] [address] 01-13-2023 06:18-0400 Heart rate 63 /min Dr. Kobly Kim Work Phone: 1(076)827-682835 [place] [address] 01-13-2023 06:18-0400 Inhaled oxygen flow rate 2 L/min Dr. Kolby Kim Work Phone: 2(023)057-515441 [place] [address] 01-13-2023 06:18-0400 Respiratory rate 17 /min Dr. Kolby Kim Work Phone: [facility] 01-13-2023 06:18-0400 SaO2% (BldA) [Mass fraction] 96 % Dr. Kolby Kim Work Phone: [facility] 01-13-2023 06:18-0400 Systolic blood pressure 156 mm[Hg] Dr. Kolby Kim Work Phone: [facility] 01-01-2023 11:11-0400 Body height 152.4 cm Kolby Kim MD Work Phone: [facility] 01-01-2023 11:11-0400 Body weight 52.16 kg Kolby Kim MD Work Phone: [facility] 01-01-2023 11:11-0400 Diastolic blood pressure 58 mm[Hg] Kolby Kim MD Work Phone: [facility] 01-01-2023 11:11-0400 Heart rate 69 /min Kolby Kim MD Work Phone: [facility] 01-01-2023 11:11-0400 SaO2% (BldA) [Mass fraction] 88 % Kolby Kim MD Work Phone: [facility] 01-01-2023 11:11-0400 Systolic blood pressure 118 mm[Hg] Kolby Kim MD Work Phone: [facility] 12-26-2022 19:00-0400 Heart rate 70 /min Dr. Kolby Kim Work Phone: [facility] 12-26-2022 19:00-0400 Respiratory rate 18 /min Dr. Kolby Kim Work Phone: [facility] 12-26-2022 19:00-0400 SaO2% (BldA) [Mass fraction] 96 % Dr. Kolby Kim Work Phone: [facility] 12-26-2022 16:41-0400 Inhaled oxygen flow rate 3 L/min Dr. Kolby Kim Work Phone: [facility] 12-26-2022 14:57-0400 Body mass index (BMI) [Ratio] 23.1 kg/m2 Dr. Kolby Kim Work Phone: [facility] 12-26-2022 14:57-0400 Body weight 53.[address] Kolby Kim Work Phone: [facility] 12-26-2022 14:30-0400 Body height 152.[address] Kolby Kim Work Phone: [facility] 12-26-2022 14:30-0400 Body temperature 98.3 [degF] Dr. Kolby Kim Work Phone: 5(564)218-511735 [place] [address] 12-26-2022 14:30-0400 Diastolic blood pressure 72 mm[Hg] Dr. Kolby Kim Work Phone: 7(758)563-551035 [place] [address] 12-26-2022 14:30-0400 Systolic blood pressure 130 mm[Hg] Dr. Kolby Kim Work Phone: 7(522)880-775835 [place] [address] 12-14-2022 14:32-0400 Body weight 54.[address] Kolby Kim Work Phone: 6(182)421-350035 [place] [address] 12-14-2022 14:32-0400 Heart rate 78 /min Dr. Kolby Kim Work Phone: 4(736)421-880035 [place] [address] 12-14-2022 14:32-0400 Inhaled oxygen flow rate 3 L/min Dr. Kolby Kim Work Phone: 2(562)092-726935 [place] [address] 12-14-2022 14:32-0400 SaO2% (BldA) [Mass fraction] 92 % Dr. Kolby Kim Work Phone: 0(809)508-361535 [place] [address] 12-07-2022 06:44-0400 Body mass index (BMI) [Ratio] 23 kg/m2 Dr. Kolby Kim Work Phone: 6(529)424-232135 [place] [address] 12-07-2022 06:44-0400 Body temperature 97.8 [degF] Dr. Kolby Kim Work Phone: 1(742)293-732335 [place] [address] 12-07-2022 06:44-0400 Body weight 53.[address] Kolby Kim Work Phone: 0(194)627-082535 [place] [address] 12-07-2022 06:44-0400 Diastolic blood pressure 78 mm[Hg] Dr. Kolby Kim Work Phone: 2(653)929-935835 [place] [address] 12-07-2022 06:44-0400 Heart rate 74 /min Dr. Kolby Kim Work Phone: 9(612)142-102135 [place] [address] 12-07-2022 06:44-0400 Inhaled oxygen flow rate 3 L/min Dr. Kolby Kim Work Phone: 4(808)887-912735 [place] [address] 12-07-2022 06:44-0400 Respiratory rate 18 /min Dr. Kolby Kim Work Phone: [facility] 12-07-2022 06:44-0400 SaO2% (BldA) [Mass fraction] 90 % Dr. Kolby Kim Work Phone: [facility] 12-07-2022 06:44-0400 Systolic blood pressure 123 mm[Hg] Dr. Kolby Kim Work Phone: [facility] 12-01-2022 11:23-0400 Body height 152.4 cm Shawn Santana MD Work Phone: [facility] 12-01-2022 11:23-0400 Body weight 54.43 kg Shawn Santana MD Work Phone: [facility] 12-01-2022 11:23-0400 Diastolic blood pressure 59 mm[Hg] Shawn Santana MD Work Phone: [facility] 12-01-2022 11:23-0400 Heart rate 72 /min Shawn Santana MD Work Phone: [facility] 12-01-2022 11:23-0400 SaO2% (BldA) [Mass fraction] 90 % Shawn Santana MD Work Phone: [facility] 12-01-2022 11:23-0400 Systolic blood pressure 129 mm[Hg] Shawn Santana MD Work Phone: [facility] 11-20-2022 14:09-0400 Body mass index (BMI) [Ratio] 23.8 kg/m2 Dr. Kolby Kim Work Phone: [facility] 11-20-2022 14:09-0400 Body weight 55.[address] Kolby Kim Work Phone: [facility] 11-20-2022 14:09-0400 Diastolic blood pressure 74 mm[Hg] Dr. Kolby Kim Work Phone: [facility] 11-20-2022 14:09-0400 Heart rate 76 /min Dr. Kolby Kim Work Phone: [facility] 11-20-2022 14:09-0400 Respiratory rate 18 /min Dr. Kolby Kim Work Phone: [facility] 11-20-2022 14:09-0400 Systolic blood pressure 123 mm[Hg] Dr. 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 Kolby Kim Work Phone: [facility] 11-13-2022 16:31-0400 SaO2% (BldA) [Mass fraction] 92 % Dr. Kolby Kim Work Phone: 0(404)025-592841 [place] [address] 11-13-2022 16:27-0400 Body height 152.[address] Kolby Kim Work Phone: [facility] 11-13-2022 16:27-0400 Body temperature 99.1 [degF] Dr. Kolby Kim Work Phone: [facility] 11-13-2022 16:27-0400 Diastolic blood pressure 100 mm[Hg] Dr. Kolby Kim Work Phone: [facility] 11-13-2022 16:27-0400 Heart rate 80 /min Dr. Kolby Kim Work Phone: 5(551)317-858541 [place] [address] 11-13-2022 16:27-0400 Respiratory rate 22 /min Dr. Kolby Kim Work Phone: [facility] 11-13-2022 16:27-0400 Systolic blood pressure 160 mm[Hg] Dr. Kolby Kim Work Phone: [facility] 11-08-2022 07:49-0400 Body mass index (BMI) [Ratio] 23.6 kg/m2 Dr. Kolby Kim Work Phone: [facility] 11-08-2022 07:49-0400 Body temperature 97.2 [degF] Dr. Kolby Kim Work Phone: [facility] 11-08-2022 07:49-0400 Body weight 54.[address] Kolby Kim Work Phone: [facility] 11-08-2022 07:49-0400 Diastolic blood pressure 71 mm[Hg] Dr. Kolby Kim Work Phone: [facility] 11-08-2022 07:49-0400 Heart rate 68 /min Dr. Kolby Kim Work Phone: [facility] 11-08-2022 07:49-0400 Respiratory rate 18 /min Dr. Kloby Kim Work Phone: [facility] 11-08-2022 07:49-0400 SaO2% (BldA) [Mass fraction] 92 % Dr. Kolby Kim Work Phone: [facility] 11-08-2022 07:49-0400 Systolic blood pressure 156 mm[Hg] Dr. Kolby Kim Work Phone: [facility] 11-06-2022 11:09-0400 Body weight 55.79 kg Kolby Kim MD Work Phone: [facility] 11-06-2022 11:09-0400 Diastolic blood pressure 86 mm[Hg] Kolby Kim MD Work Phone: [facility] 11-06-2022 11:09-0400 Heart rate 74 /min Kolby Kim MD Work Phone: [facility] 11-06-2022 11:09-0400 SaO2% (BldA) [Mass fraction] 92 % Kolby Kim MD Work Phone: [facility] 11-06-2022 11:09-0400 Systolic blood pressure 150 mm[Hg] Kolby Kim MD Work Phone: [facility] 11-05-2022 10:59-0400 Body height 152.4 cm Treva Chirinos 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 Work Phone: [facility] 11-05-2022 10:59-0400 Body weight 58.51 kg Treva Chirinos 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 Work Phone: [facility] 11-03-2022 14:57-0400 Body temperature 98 [degF] Dr. Kolby Kim Work Phone: [facility] 11-03-2022 14:57-0400 Diastolic blood pressure 65 mm[Hg] Dr. Kolby Kim Work Phone: [facility] 11-03-2022 14:57-0400 Heart rate 72 /min Dr. Kolby Kim Work Phone: [facility] 11-03-2022 14:57-0400 Respiratory rate 14 /min Dr. Kolby Kim Work Phone: [facility] 11-03-2022 14:57-0400 SaO2% (BldA) [Mass fraction] 93 % Dr. Kolby Kim Work Phone: [facility] 11-03-2022 14:57-0400 Systolic blood pressure 107 mm[Hg] Dr. Kolby Kim Work Phone: [facility] 11-03-2022 07:01-0400 Inhaled oxygen flow rate 2 L/min Dr. Kolby Kim Work Phone: [facility] 11-02-2022 12:00-0400 Body height 152.[address] Kolby Kmi Work Phone: [facility] 11-02-2022 12:00-0400 Body weight 54.[address] Kolby Kim Work Phone: [facility] 11-02-2022 00:37-0400 Body mass index (BMI) [Ratio] 23.6 kg/m2 Dr. Kolby Kim Work Phone: [facility] 11-02-2022 00:01-0400 Body temperature 98.7 [degF] Dr. Kolby Kim Work Phone: 7(894)105-282141 [place] [address] 11-02-2022 00:01-0400 Diastolic blood pressure 65 mm[Hg] Dr. Kolby Kim Work Phone: 2(550)357-812935 [place] [address] 11-02-2022 00:01-0400 Heart rate 76 /min Dr. Kolby Kim Work Phone: 9(155)521-199935 [place] [address] 11-02-2022 00:01-0400 Inhaled oxygen flow rate 2 L/min Dr. Kolby Kim Work Phone: 2(569)293-097435 [place] [address] 11-02-2022 00:01-0400 Respiratory rate 14 /min Dr. Kolby Kim Work Phone: 4(969)986-815335 [place] [address] 11-02-2022 00:01-0400 SaO2% (BldA) [Mass fraction] 95 % Dr. Kolby Kim Work Phone: 6(797)951-588835 [place] [address] 11-02-2022 00:01-0400 Systolic blood pressure 144 mm[Hg] Dr. Kolby Kim Work Phone: 9(752)537-420435 [place] [address] 11-01-2022 20:43-0400 Body height 152.[address] Kolby Kim Work Phone: 5(430)915-724535 [place] [address] 11-01-2022 20:43-0400 Body mass index (BMI) [Ratio] 24.3 kg/m2 Dr. Kolby Kim Work Phone: 7(503)474-031135 [place] [address] 11-01-2022 20:43-0400 Body weight 56.[address] Kolby Kim Work Phone: 8(947)063-351435 [place] [address] 10-26-2022 14:07-0400 Body height 152.4 cm Kolby Kim MD Work Phone: [facility] 10-26-2022 14:07-0400 Body weight 58.51 kg Kolby Kim MD Work Phone: [facility] 10-26-2022 14:07-0400 Diastolic blood pressure 88 mm[Hg] Kolby Kim MD Work Phone: [facility] 10-26-2022 14:07-0400 Heart rate 50 /min Kolby Kim MD Work Phone: [facility] 10-26-2022 14:07-0400 SaO2% (BldA) [Mass fraction] 83 % Kolby Kim MD Work Phone: [facility] 10-26-2022 14:07-0400 Systolic blood pressure 156 mm[Hg] Kolby Kim MD Work Phone: [facility] 10-23-2022 17:02-0400 Inhaled oxygen flow rate 2 L/min Dr. Kolby Kim Work Phone: [facility] 10-23-2022 17:02-0400 SaO2% (BldA) [Mass fraction] 95 % Dr. Kolby Kim Work Phone: [facility] 10-23-2022 15:00-0400 Body temperature 98.1 [degF] Dr. Kolby Kim Work Phone: [facility] 10-23-2022 15:00-0400 Diastolic blood pressure 75 mm[Hg] Dr. Kolby Kim Work Phone: 8(100)391-699241 [place] [address] 10-23-2022 15:00-0400 Heart rate 65 /min Dr. Kolby Kim Work Phone: [facility] 10-23-2022 15:00-0400 Respiratory rate 18 /min Dr. Kolby Kim Work Phone: [facility] 10-23-2022 15:00-0400 Systolic blood pressure 158 mm[Hg] Dr. Kolby Kim Work Phone: [facility] 10-23-2022 05:44-0400 Body mass index (BMI) [Ratio] 24.3 kg/m2 Dr. Kolby Kim Work Phone: [facility] 10-23-2022 05:44-0400 Body weight 56.[address] Kolby Kim Work Phone: [facility] 10-21-2022 15:21-0400 Body height 152.[address] Kolby Kim Work Phone: [facility] 10-20-2022 19:49-0400 Body temperature 98.8 [degF] Dr. Kolby Kim Work Phone: 7(023)494-542035 [place] [address] 10-20-2022 19:49-0400 Diastolic blood pressure 67 mm[Hg] Dr. Kolby Kim Work Phone: 8(303)738-200835 [place] [address] 10-20-2022 19:49-0400 Heart rate 72 /min Dr. Kolby Kim Work Phone: 6(109)628-353835 [place] [address] 10-20-2022 19:49-0400 Respiratory rate 24 /min Dr. Kolby Kim Work Phone: 4(146)892-718235 [place] [address] 10-20-2022 19:49-0400 SaO2% (BldA) [Mass fraction] 93 % Dr. Kolby Kim Work Phone: 9(892)851-637135 [place] [address] 10-20-2022 19:49-0400 Systolic blood pressure 104 mm[Hg] Dr. Kolby Kim Work Phone: 4(120)644-128035 [place] [address] 10-20-2022 19:11-0400 Inhaled oxygen flow rate 2 L/min Dr. Kolby Kim Work Phone: 1(952)511-019335 [place] [address] 10-20-2022 13:26-0400 Body height 152.[address] Kolby Kim Work Phone: 4(407)550-527735 [place] [address] 10-20-2022 13:26-0400 Body mass index (BMI) [Ratio] 24.6 kg/m2 Dr. Kolby Kim Work Phone: 9(267)814-321335 [place] [address] 10-20-2022 13:26-0400 Body weight 57.[address] Kolby Kim Work Phone: 5(154)231-643735 [place] [address] 10-04-2022 13:37-0500 Heart rate 70 /min Gilberto Virk MD Work Phone: [facility] 10-04-2022 13:37-0500 Respiratory rate 18 /min Gilberto Virk MD Work Phone: [facility] 10-04-2022 13:37-0500 SaO2% (BldA) [Mass fraction] 98 % Gilberto Virk MD Work Phone: [facility] 09-29-2022 14:48-0500 Body weight 58.88 kg NA Harrell PA-C Work Phone: [facility] 09-29-2022 14:48-0500 Diastolic blood pressure 78 mm[Hg] NA Harrell PA-C Work Phone: [facility] 09-29-2022 14:48-0500 Heart rate 72 /min NA Harrell PA-C Work Phone: [facility] 09-29-2022 14:48-0500 Respiratory rate 18 /min NA Harrell PA-C Work Phone: [facility] 09-29-2022 14:48-0500 SaO2% (BldA) [Mass fraction] 94 % NA Harrell PA-C Work Phone: [facility] 09-29-2022 14:48-0500 Systolic blood pressure 142 mm[Hg] NA Harrell PA-C Work Phone: [facility] 09-14-2022 11:00-0500 Heart rate 71 /min Gilberto Virk MD Work Phone: [facility] 09-14-2022 11:00-0500 Respiratory rate 18 /min Gilberto Virk MD Work Phone: [facility] 09-14-2022 11:00-0500 SaO2% (BldA) [Mass fraction] 95 % Gilberto Virk MD Work Phone: [facility] 09-03-2022 22:14-0500 Diastolic blood pressure 91 mm[Hg] Dr. Kolby Kim Work Phone: [facility] 09-03-2022 22:14-0500 Heart rate 75 /min Dr. Kolby Kim Work Phone: [facility] 09-03-2022 22:14-0500 SaO2% (BldA) [Mass fraction] 92 % Dr. Kolby Kim Work Phone: 6(634)306-046035 [place] [address] 09-03-2022 22:14-0500 Systolic blood pressure 136 mm[Hg] Dr. Kolby Kim Work Phone: 8(789)818-841535 [place] [address] 09-03-2022 18:50-0500 Respiratory rate 16 /min Dr. Kolby Kim Work Phone: 3(492)586-070435 [place] [address] 09-03-2022 17:36-0500 Inhaled oxygen flow rate 2 L/min Dr. Kolby Kim Work Phone: 8(136)420-304735 [place] [address] 09-03-2022 16:57-0500 Body height 152.[address] Kolby Kim Work Phone: 4(495)681-624835 [place] [address] 09-03-2022 16:57-0500 Body mass index (BMI) [Ratio] 27.1 kg/m2 Dr. Kolby Kim Work Phone: 4(295)023-116635 [place] [address] 09-03-2022 16:57-0500 Body temperature 98.7 [degF] Dr. Kolby Kim Work Phone: 4(188)496-921335 [place] [address] 09-03-2022 16:57-0500 Body weight [address] Kolby Kim Work Phone: 8(257)341-879935 [place] [address] 08-12-2022 16:49-0500 Diastolic blood pressure 76 mm[Hg] Dr. Kolby Kim Work Phone: 4(594)820-163735 [place] [address] 08-12-2022 16:49-0500 Heart rate 85 /min Dr. Kolyb Kim Work Phone: 9(643)870-357535 [place] [address] 08-12-2022 16:49-0500 Respiratory rate 16 /min Dr. Kolby Kim Work Phone: 6(980)771-944735 [place] [address] 08-12-2022 16:49-0500 SaO2% (BldA) [Mass fraction] 90 % Dr. Kolby Kim Work Phone: 0(782)764-934235 [place] [address] 08-12-2022 16:49-0500 Systolic blood pressure 165 mm[Hg] Dr. Kolby Kim Work Phone: 5(407)188-925335 [place] [address] 08-12-2022 14:48-0500 Body height 152.[address] Kolby Kim Work Phone: 5(712)958-973741 [place] [address] Work Phone: 08-12-2022 14:48-0500 Body mass index (BMI) [Ratio] 26.4 kg/m2 Dr. Kolby Kim Work Phone: 5(112)125-896335 [place] [address] 08-12-2022 14:48-0500 Body temperature 96.8 [degF] Dr. Kolby Kim Work Phone: 7(051)577-136235 [place] [address] 08-12-2022 14:48-0500 Body weight 61.[address] Kolby Kim Work Phone: 9(739)111-196935 [place] [address] 08-07-2022 04:30-0500 Diastolic blood pressure 56 mm[Hg] Dr. Kolby Kim Work Phone: 1(991)494-351735 [place] [address] 08-07-2022 04:30-0500 Heart rate 65 /min Dr. Kolby Kim Work Phone: 7(952)066-822635 [place] [address] 08-07-2022 04:30-0500 Respiratory rate 18 /min Dr. Kolby Kim Work Phone: 9(694)261-059535 [place] [address] 08-07-2022 04:30-0500 SaO2% (BldA) [Mass fraction] 91 % Dr. Kolby Kim Work Phone: 3(069)350-984035 [place] [address] 08-07-2022 04:30-0500 Systolic blood pressure 129 mm[Hg] Dr. Kolby Kim Work Phone: 9(082)298-504235 [place] [address] 08-07-2022 02:11-0500 Body mass index (BMI) [Ratio] 38.2 kg/m2 Dr. Kolby Kim Work Phone: 4(413)013-795435 [place] [address] 08-07-2022 02:11-0500 Body temperature 96.7 [degF] Dr. Kolby Kim Work Phone: 0(303)266-282135 [place] [address] 08-07-2022 02:11-0500 Body weight 61.[address] Kolby Kim Work Phone: 9(532)371-288035 [place] [address] 07-27-2022 10:47-0500 Body weight 59.15 kg Kolby Kim MD Work Phone: [facility] 07-27-2022 10:47-0500 Diastolic blood pressure 86 mm[Hg] Kolby Kim MD Work Phone: [facility] 07-27-2022 10:47-0500 Heart rate 70 /min Kolby Kim MD Work Phone: [facility] 07-27-2022 10:47-0500 Respiratory rate 20 /min Kolby Kim MD Work Phone: [facility] 07-27-2022 10:47-0500 SaO2% (BldA) [Mass fraction] 94 % Kolby Kim MD Work Phone: [facility] 07-27-2022 10:47-0500 Systolic blood pressure 128 mm[Hg] Kolby Kim MD Work Phone: [facility] 07-05-2022 13:20-0500 Body mass index (BMI) [Ratio] 25.5 kg/m2 Dr. Kolby Kim Work Phone: [facility] 07-05-2022 13:20-0500 Body temperature 97.5 [degF] Dr. Kolby Kim Work Phone: 6(242)584-359041 [place] [address] 07-05-2022 13:20-0500 Body weight 59.[address] Kolby Kim Work Phone: 5(293)859-297841 [place] [address] 07-05-2022 13:20-0500 Diastolic blood pressure 68 mm[Hg] Dr. Kolby Kim Work Phone: 6(239)309-896741 [place] [address] 07-05-2022 13:20-0500 Heart rate 76 /min Dr. Kolby Kim Work Phone: 7(916)273-360341 [place] [address] 07-05-2022 13:20-0500 Respiratory rate 18 /min Dr. Kolby Kim Work Phone: 8(010)997-743541 [place] [address] 07-05-2022 13:20-0500 Systolic blood pressure 151 mm[Hg] Dr. Kolby Kim Work Phone: 3(933)469-129335 [place] [address] 05-24-2022 11:24-0400 Diastolic blood pressure 96 mm[Hg] Dr. Kolby Kim Work Phone: 4(643)678-505335 [place] [address] 05-24-2022 11:24-0400 Heart rate 85 /min Dr. Kolby Kim Work Phone: 0(200)058-560535 [place] [address] 05-24-2022 11:24-0400 Respiratory rate 15 /min Dr. Kolby Kim Work Phone: 9(931)623-305635 [place] [address] 05-24-2022 11:24-0400 SaO2% (BldA) [Mass fraction] 95 % Dr. Kolby Kim Work Phone: 0(940)641-726635 [place] [address] 05-24-2022 11:24-0400 Systolic blood pressure 112 mm[Hg] Dr. Kolby Kim Work Phone: 5(275)868-881535 [place] [address] 05-24-2022 10:25-0400 Body temperature 99.4 [degF] Dr. Kolby Kim Work Phone: 1(890)339-911635 [place] [address] 05-24-2022 08:39-0400 Body height 152.[address] Kolby Kim Work Phone: 6(833)435-244435 [place] [address] Work Phone: 05-24-2022 08:39-0400 Body mass index (BMI) [Ratio] 26.4 kg/m2 Dr. Kolby Kim Work Phone: 8(350)736-059835 [place] [address] 05-24-2022 08:39-0400 Body weight 61.[address] Kolby Kim Work Phone: 2(809)820-807635 [place] [address] 05-22-2022 14:04-0400 Body mass index (BMI) [Ratio] 26.2 kg/m2 Dr. Kolby Kim Work Phone: 6(113)423-972035 [place] [address] 05-22-2022 14:04-0400 Body weight 60.[address] Kolby Kim Work Phone: 9(834)496-294735 [place] [address] 05-22-2022 14:04-0400 Diastolic blood pressure 80 mm[Hg] Dr. Kolby Kim Work Phone: 9(958)888-323235 [place] [address] 05-22-2022 14:04-0400 Heart rate 68 /min Dr. Kolby Kim Work Phone: [facility] 05-22-2022 14:04-0400 Respiratory rate 18 /min Dr. Kolby Kim Work Phone: [facility] 05-22-2022 14:04-0400 Systolic blood pressure 148 mm[Hg] Dr. Kolby Kim Work Phone: [facility] 05-05-2022 10:18-0400 Diastolic blood pressure 67 mm[Hg] Radha Sanchez MD Work Phone: [facility] 05-05-2022 10:18-0400 Heart rate 62 /min Radha Sanchez MD Work Phone: [facility] 05-05-2022 10:18-0400 Systolic blood pressure 177 mm[Hg] Radha Sanchez MD Work Phone: [facility] 05-05-2022 09:52-0400 Body weight 62.14 kg Radha Sanchez MD Work Phone: [facility] 04-19-2022 14:55-0400 Body temperature 97.2 [degF] Nat Praisler-Wood 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 Work Phone: [facility] 04-19-2022 14:55-0400 Body weight 62.69 kg Nat Praisler-Wood 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 Work Phone: [facility] 04-19-2022 14:55-0400 Diastolic blood pressure 86 mm[Hg] Nat Praisler-Wood 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 Work Phone: [facility] 04-19-2022 14:55-0400 Heart rate 70 /min Nat Praisler-Wood 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 Work Phone: [facility] 04-19-2022 14:55-0400 Respiratory rate 20 /min Nat Praisler-Wood 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 Work Phone: [facility] 04-19-2022 14:55-0400 SaO2% (BldA) [Mass fraction] 95 % Nat Benavides 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 Work Phone: [facility] 04-19-2022 14:55-0400 Systolic blood pressure 150 mm[Hg] Nat Benavides APRN.[employer] TE[employer] Work Phone: [facility] 04-04-2022 12:47-0400 Body mass index (BMI) [Ratio] 27 kg/m2 Dr. Kolby Kim Work Phone: [facility] Work Phone: 04-04-2022 12:47-0400 Body temperature 98.6 [degF] Dr. Kolby Kim Work Phone: [facility] Work Phone: 04-04-2022 12:47-0400 Body weight 62.[address] Kolby Kim Work Phone: [facility] Work Phone: 04-04-2022 12:47-0400 Diastolic blood pressure 68 mm[Hg] Dr. Kolby Kim Work Phone: [facility] Work Phone: 04-04-2022 12:47-0400 Heart rate 63 /min Dr. Kolby Kim Work Phone: [facility] Work Phone: 04-04-2022 12:47-0400 Respiratory rate 16 /min Dr. Kolby Kim Work Phone: [facility] Work Phone: 04-04-2022 12:47-0400 SaO2% (BldA) [Mass fraction] 91 % Dr. Kolby Kim Work Phone: [facility] Work Phone: 04-04-2022 12:47-0400 Systolic blood pressure 140 mm[Hg] Dr. Kolby Kim Work Phone: [facility] Work Phone: 03-21-2022 11:28-0400 Body weight 62.6 kg 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: [facility] 03-21-2022 11:28-0400 Diastolic blood pressure 82 mm[Hg] 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: [facility] 03-21-2022 11:28-0400 Heart rate 64 /min 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: [facility] 03-21-2022 11:28-0400 Respiratory rate 18 /min 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: [facility] 03-21-2022 11:28-0400 SaO2% (BldA) [Mass fraction] 98 % 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: [facility] 03-21-2022 11:28-0400 Systolic blood pressure 142 mm[Hg] 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: [facility] 02-20-2022 17:53-0400 Body weight 63.05 kg Kolby Kim MD Work Phone: [facility] 02-20-2022 17:53-0400 Diastolic blood pressure 72 mm[Hg] Kolby Kim MD Work Phone: [facility] 02-20-2022 17:53-0400 Heart rate 57 /min Kolby Kim MD Work Phone: [facility] 02-20-2022 17:53-0400 SaO2% (BldA) [Mass fraction] 96 % Kolby Kim MD Work Phone: [facility] 02-20-2022 17:53-0400 Systolic blood pressure 132 mm[Hg] Kolby Kim MD Work Phone: [facility] 02-08-2022 12:12-0400 Diastolic blood pressure 77 mm[Hg] Kolby Kim MD Work Phone: [facility] 02-08-2022 12:12-0400 Systolic blood pressure 127 mm[Hg] Kolby Kim MD Work Phone: [facility] 02-08-2022 11:50-0400 Diastolic blood pressure 72 mm[Hg] Mi Nurse Work Phone: [facility] 02-08-2022 11:50-0400 Heart rate 68 /min Mi Nurse Work Phone: [facility] 02-08-2022 11:50-0400 Systolic blood pressure 140 mm[Hg] Mi Nurse Work Phone: [facility] 01-19-2022 17:06-0400 Diastolic blood pressure 61 mm[Hg] Dr. Kolby Kim Work Phone: [facility] Work Phone: 01-19-2022 17:06-0400 Heart rate 65 /min Dr. Kolby Kim Work Phone: [facility] Work Phone: 01-19-2022 17:06-0400 Respiratory rate 15 /min Dr. Kolby Kim Work Phone: [facility] Work Phone: 01-19-2022 17:06-0400 SaO2% (BldA) [Mass fraction] 95 % Dr. Kolby Kim Work Phone: [facility] Work Phone: 01-19-2022 17:06-0400 Systolic blood pressure 116 mm[Hg] Dr. Kolby Kim Work Phone: [facility] Work Phone: 01-19-2022 15:34-0400 Body mass index (BMI) [Ratio] 27.3 kg/m2 Dr. Kolby Kim Work Phone: [facility] Work Phone: 01-19-2022 15:04-0400 Body height 152.[address] Kolby Kim Work Phone: [facility] Work Phone: 01-19-2022 15:04-0400 Body temperature 97.2 [degF] Dr. Kolby Kim Work Phone: [facility] Work Phone: 01-19-2022 15:04-0400 Body weight 63.[address] Kolby Kim Work Phone: [facility] Work Phone: 01-09-2022 12:42-0400 Diastolic blood pressure 72 mm[Hg] Mi Nurse Work Phone: [facility] 01-09-2022 12:42-0400 Heart rate 75 /min Mi Nurse Work Phone: [facility] 01-09-2022 12:42-0400 Systolic blood pressure 146 mm[Hg] Mi Nurse Work Phone: [facility] 12-28-2021 22:18-0400 Diastolic blood pressure 68 mm[Hg] Dr. Kolby Kim Work Phone: [facility] Work Phone: 12-28-2021 22:18-0400 Heart rate 76 /min Dr. Kolby Kim Work Phone: [facility] Work Phone: 12-28-2021 22:18-0400 Respiratory rate 16 /min Dr. Kolby Kim Work Phone: [facility] Work Phone: 12-28-2021 22:18-0400 Systolic blood pressure 142 mm[Hg] Dr. Kolby Kim Work Phone: [facility] Work Phone: 12-28-2021 20:33-0400 SaO2% (BldA) [Mass fraction] 98 % Dr. Kolby Kim Work Phone: [facility] Work Phone: 12-28-2021 17:56-0400 Body height 152.[address] Kolby Kim Work Phone: [facility] Work Phone: 12-28-2021 17:56-0400 Body mass index (BMI) [Ratio] 27.1 kg/m2 Dr. Kolby Kim Work Phone: [facility] Work Phone: 12-28-2021 17:56-0400 Body temperature 97.9 [degF] Dr. Kolby Kim Work Phone: [facility] Work Phone: 12-28-2021 17:56-0400 Body weight 63.[address] Kolby Kim Work Phone: [facility] Work Phone: 12-07-2021 14:49-0400 Diastolic blood pressure 78 mm[Hg] Kolby Kim MD Work Phone: [facility] 12-07-2021 14:49-0400 Systolic blood pressure 150 mm[Hg] Kolby Kim MD Work Phone: [facility] 12-07-2021 14:29-0400 Body weight 64.59 kg Kolby Kim MD Work Phone: [facility] 12-07-2021 14:29-0400 Heart rate 64 /min Kolby Kim MD Work Phone: [facility] 12-07-2021 14:29-0400 Respiratory rate 20 /min Kolby Kim MD Work Phone: [facility] 12-07-2021 14:29-0400 SaO2% (BldA) [Mass fraction] 94 % Kolby Kim MD Work Phone: [facility] 11-29-2021 13:05-0400 Body mass index (BMI) [Ratio] 27.5 kg/m2 Dr. Kolby Kim Work Phone: [facility] Work Phone: 11-29-2021 13:05-0400 Body weight 63.[address] Kolby Kim Work Phone: [facility] Work Phone: 11-29-2021 13:05-0400 Diastolic blood pressure 71 mm[Hg] Dr. Kolby Kim Work Phone: [facility] Work Phone: 11-29-2021 13:05-0400 Heart rate 67 /min Dr. Kolby Kim Work Phone: [facility] Work Phone: 11-29-2021 13:05-0400 Respiratory rate 18 /min Dr. Kolby Kim Work Phone: [facility] Work Phone: 11-29-2021 13:05-0400 Systolic blood pressure 131 mm[Hg] Dr. Kolby Kim Work Phone: [facility] Work Phone: 11-29-2021 13:05-0400 Body mass index (BMI) [Ratio] 27.5 kg/m2 Dr. Kolby Kim Work Phone: [facility] Work Phone: 11-29-2021 13:05-0400 Body weight 63.[address] Kolby Kim Work Phone: [facility] Work Phone: 11-29-2021 13:05-0400 Diastolic blood pressure 71 mm[Hg] Dr. Kolby Kim Work Phone: [facility] Work Phone: 11-29-2021 13:05-0400 Heart rate 67 /min Dr. Kolby Kim Work Phone: [facility] Work Phone: 11-29-2021 13:05-0400 Respiratory rate 18 /min Dr. Kolby Kim Work Phone: [facility] Work Phone: 11-29-2021 13:05-0400 Systolic blood pressure 131 mm[Hg] Dr. Kolby Kim Work Phone: [facility] Work Phone: 10-19-2021 14:28-0400 Body weight 65.32 kg Kolby Kim MD Work Phone: [facility] 10-19-2021 14:28-0400 Diastolic blood pressure 80 mm[Hg] Kolby Kim MD Work Phone: [facility] 10-19-2021 14:28-0400 Heart rate 72 /min Kolby Kim MD Work Phone: [facility] 10-19-2021 14:28-0400 SaO2% (BldA) [Mass fraction] 92 % Kolby Kim MD Work Phone: [facility] 10-19-2021 14:28-0400 Systolic blood pressure 118 mm[Hg] Kolby Kim MD Work Phone: [facility] 10-04-2021 11:24-0500 Body mass index (BMI) [Ratio] 28.3 kg/m2 Dr. Kolby Kim Work Phone: [facility] Work Phone: 10-04-2021 11:24-0500 Body temperature 96.8 [degF] Dr. Kolby Kim Work Phone: [facility] Work Phone: 10-04-2021 11:24-0500 Body weight 65.[address] Kolby Kim Work Phone: [facility] Work Phone: 10-04-2021 11:24-0500 Diastolic blood pressure 77 mm[Hg] Dr. Kolby Kim Work Phone: [facility] Work Phone: 10-04-2021 11:24-0500 Heart rate 72 /min Dr. Kolby Kim Work Phone: [facility] Work Phone: 10-04-2021 11:24-0500 Respiratory rate 18 /min Dr. Kolby Kim Work Phone: [facility] Work Phone: 10-04-2021 11:24-0500 SaO2% (BldA) [Mass fraction] 89 % Dr. Kolby Kim Work Phone: [facility] Work Phone: 10-04-2021 11:24-0500 Systolic blood pressure 139 mm[Hg] Dr. Kolby Kim Work Phone: [facility] Work Phone: 10-04-2021 10:24-0500 Body mass index (BMI) [Ratio] 28.3 kg/m2 Dr. Kolby Kim Work Phone: [facility] Work Phone: 10-04-2021 10:24-0500 Body temperature 96.8 [degF] Dr. Kolby Kim Work Phone: [facility] Work Phone: 10-04-2021 10:24-0500 Body weight 65.[address] Kolby Kim Work Phone: [facility] Work Phone: 10-04-2021 10:24-0500 Diastolic blood pressure 77 mm[Hg] Dr. Kolby Kim Work Phone: [facility] Work Phone: 10-04-2021 10:24-0500 Heart rate 72 /min Dr. Kolby Kim Work Phone: [facility] Work Phone: 10-04-2021 10:24-0500 Respiratory rate 18 /min Dr. Kolby Kim Work Phone: [facility] Work Phone: 10-04-2021 10:24-0500 SaO2% (BldA) [Mass fraction] 89 % Dr. Kolby Kim Work Phone: [facility] Work Phone: 10-04-2021 10:24-0500 Systolic blood pressure 139 mm[Hg] Dr. Kolby Kim Work Phone: [facility] Work Phone: 10-03-2021 22:04-0500 Body temperature 99.3 [degF] Dr. Kolby Kim Work Phone: [facility] Work Phone: 10-03-2021 22:04-0500 Diastolic blood pressure 74 mm[Hg] Dr. Kolby Kim Work Phone: [facility] Work Phone: 10-03-2021 22:04-0500 Systolic blood pressure 139 mm[Hg] Dr. Kolby Kim Work Phone: [facility] Work Phone: 10-03-2021 21:16-0500 Heart rate 80 /min Dr. Kolby Kim Work Phone: [facility] Work Phone: 10-03-2021 21:16-0500 Respiratory rate 15 /min Dr. Kolby Kim Work Phone: [facility] Work Phone: 10-03-2021 21:16-0500 SaO2% (BldA) [Mass fraction] 99 % Dr. Kolby Kim Work Phone: [facility] Work Phone: 10-03-2021 21:04-0500 Body temperature 99.3 [degF] Dr. Kolby Kim Work Phone: [facility] Work Phone: 10-03-2021 21:04-0500 Diastolic blood pressure 74 mm[Hg] Dr. Kolby Kim Work Phone: [facility] Work Phone: 10-03-2021 21:04-0500 Systolic blood pressure 139 mm[Hg] Dr. Kolby Kim Work Phone: [facility] Work Phone: 10-03-2021 20:16-0500 Heart rate 80 /min Dr. Kolby Kim Work Phone: [facility] Work Phone: 10-03-2021 20:16-0500 Respiratory rate 15 /min Dr. Kolby Kim Work Phone: [facility] Work Phone: 10-03-2021 20:16-0500 SaO2% (BldA) [Mass fraction] 99 % Dr. Kolby Kim Work Phone: [facility] Work Phone: 10-03-2021 18:44-0500 Body mass index (BMI) [Ratio] 28.1 kg/m2 Dr. Kolby Kim Work Phone: [facility] Work Phone: 10-03-2021 18:44-0500 Body weight 65.[address] Kolby Kim Work Phone: [facility] Work Phone: 10-03-2021 17:44-0500 Body mass index (BMI) [Ratio] 28.1 kg/m2 Dr. Kolby Kim Work Phone: [facility] Work Phone: 10-03-2021 17:44-0500 Body weight 65.[address] Kolby Kim Work Phone: [facility] Work Phone: 09-18-2021 15:09-0500 Diastolic blood pressure 66 mm[Hg] Dr. Kolby Kim Work Phone: [facility] Work Phone: 09-18-2021 15:09-0500 Heart rate 75 /min Dr. Kolby Kim Work Phone: [facility] Work Phone: 09-18-2021 15:09-0500 Respiratory rate 18 /min Dr. Kolby Kim Work Phone: [facility] Work Phone: 09-18-2021 15:09-0500 SaO2% (BldA) [Mass fraction] 95 % Dr. Kolby Kim Work Phone: [facility] Work Phone: 09-18-2021 15:09-0500 Systolic blood pressure 155 mm[Hg] Dr. Kolby Kim Work Phone: [facility] Work Phone: 09-18-2021 12:19-0500 Body mass index (BMI) [Ratio] 29.5 kg/m2 Dr. Kolby Kim Work Phone: [facility] Work Phone: 09-18-2021 12:19-0500 Body temperature 96.8 [degF] Dr. Kolby Kim Work Phone: [facility] Work Phone: 09-18-2021 12:19-0500 Body weight 68.[address] Kolby Kim Work Phone: [facility] Work Phone: 02-09-2017 09:56-0400 BMI (Body Mass Index) 32.34 kg/m2 [facility] Work Phone: 02-09-2017 09:56-0400 BP Diastolic 80 mm[Hg] [facility] Work Phone: 02-09-2017 09:56-0400 BP Systolic 124 mm[Hg] [facility] Work Phone: 02-09-2017 09:56-0400 Height 160.02 cm [facility] Work Phone: 02-09-2017 09:56-0400 Pulse (Heart Rate) 88 /min [facility] Work Phone: 02-09-2017 09:56-0400 Respiratory Rate 16 /min [facility] Work Phone: 02-09-2017 09:56-0400 Weight 82.83 kg [facility] Work Phone: 08-10-2016 11:13-0500 BMI (Body Mass Index) 33.03 kg/m2 Har[facility] Work Phone: 08-10-2016 11:13-0500 Body weight 84.6 kg Harumi DeFinis [facility] Work Phone: 08-10-2016 11:13-0500 BP Diastolic 80 mm[Hg] Harumi DeFinis [facility] Work Phone: 08-10-2016 11:13-0500 BP Systolic 138 mm[Hg] Harumi DeFinis [facility] Work Phone: 08-10-2016 11:13-0500 BSA (Body Surface Area) 1.88 m2 [facility] Work Phone: 08-10-2016 11:13-0500 Pulse (Heart Rate) 96 /min Harumi DeFinis [facility] Work Phone: 08-10-2016 11:13-0500 Respiratory Rate 18 /min [facility]umi De[facility] Work Phone: 08-10-2016 11:13-0500 Weight 84.6 kg Rory Mckay MD [facility] Work Phone: 01-12-2015 14:34-0400 Heart rate 69 /min [facility] De[facility]is [facility] Work Phone: 10-30-2013 14:43-0400 Body Temperature 99 [degF] [facility] De[facility]is [facility] Work Phone: 10-30-2013 14:43-0400 Pulse Oximetry 96 % Harumi DeFinis [facility] Work Phone: 03-10-2009 14:38-0400 Body weight 89.09 kg Harumi DeFinis [facility] Work Phone: 03-10-2009 14:38-0400 Height 160.02 cm Harumi DeFinis [facility] Work Phone: 03-10-2009 14:38-0400 Weight 89.09 kg Rory Mckay MD [facility] Work Phone: Encounters Encounter Date Encounter Type Care Provider Facility Start: 04-14-2025 End: 04-14-2025 ambulatory [facility] Facility:[facility] Start: 04-14-2025 End: 04-14-[address] 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 Work Phone: [facility] Comment on above: Paroxysmal atrial fi brillation (HCC) (Primary Dx); History of aortic valve replacement Start: 03-26-2025 End: 03-26-2025 ambulatory [facility] Facility:[facility] Start: 03-26-2025 End: 03-26-[address] [facility] Comment on above: Paroxysmal atrial fi brillation (HCC) (Primary Dx); History of aortic valve replacement Start: 03-24-2025 End: 03-24-2025 ambulatory Talia Batista RN Work Phone: Board Member Management Comment on above: Primary Care Coordin ator- Other (Chart review) Start: 03-23-2025 End: 03-23-2025 Patient encounter procedure Joy Adame FLUE G[employer] ANALYST-C -[facility] Work Phone: Start: 03-23-2025 End: 03-23-[address] Kolby Kim MD Work Phone: [facility] Start: 03-19-2025 End: 03-19-2025 [facility] Work [facility]: [facility] Comment on above: Paroxysmal atrial fi brillation (HCC) (Primary Dx); History of aortic valve replacement Start: 03-19-2025 End: 03-19-2025 ambulatory KOLBY KIM Facility:[facility] Start: 03-15-2025 End: 03-16-2025 Refill Kolby Kim MD Work Phone: [facility] Comment on above: Refill Request Start: 02-26-2025 End: 02-26-2025 [facility] Work Phone: [facility] Comment on above: Paroxysmal atrial fi brillation (HCC) (Primary Dx); History of aortic valve replacement Start: 02-26-2025 End: 02-26-2025 ambulatory KOLBY KIM Facility:[facility] Start: 02-10-2025 End: 02-10-[address] [facility] Work [facility]: [facility] [place] Comment on above: Paroxysmal atrial fi brillation (HCC) (Primary Dx); History of aortic valve replacement Start: 02-10-2025 End: 03-31-2025 ambulatory Kloby Kim MD Work Phone: [facility] [place] Comment on above: Medication questions as result of Hospice doctor meeting Start: 01-29-2025 End: 01-30-2025 Telephone encounter Kolby Kim MD Work Phone: [facility] [place] Comment on above: Orders (poc protime) Start: 01-29-2025 End: 01-29-2025 [facility] Work Phone: [facility] Comment on above: Paroxysmal atrial fi brillation (HCC) (Primary Dx); History of aortic valve replacement Start: 01-29-2025 End: 01-29-2025 ambulatory KOLBY CORRALESO Facility:[facility] Start: 01-16-2025 End: 01-16-2025 Refill Kolby Kim MD Work Phone: [facility] Comment on above: Refill Request Start: 01-15-2025 End: 01-15-2025 [facility] Start: 01-15-2025 End: 01-15-2025 Anticoagulant drug monitoring [facility] Work Phone: [facility] [place] Comment on above: Paroxysmal atrial fi brillation (HCC) (Primary Dx); History of aortic valve replacement Start: 01-12-2025 End: 01-12-2025 Patient encounter procedure Kolby Kim MD Work Phone: [facility] Comment on above: 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, unspecified dementia severity (HCC) (Primary Dx); Parkinsonism, unspecified Parkinsonism type (HCC); Hyperlipidemia LDL goal <100; Heart failure, diastolic, chronic (HCC); 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 congestive heart failure and stage 3 chronic kidney disease, unspecified whether stage 3a or 3b CKD (HCC); Paroxysmal atrial fibrillation (HCC); Bronchiectasis without complication (HCC); Chronic hypoxic respiratory failure, on home oxygen therapy (HCC); Chronic obstructive pulmonary disease, unspecified COPD type (HCC); Gastroesophageal reflux disease without esophagitis; Stage 3 chronic kidney disease, unspecified whether stage 3a or 3b CKD (HCC); 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HCC); Bilateral carotid artery stenosis Start: 01-12-2025 End: 01-12-2025 ambulatory KOLBY Yang JULIO Facility:[facility] Start: 01-06-2025 End: 01-06-2025 Telephone encounter Kolby Kim MD Work Phone: [facility] Comment on above: Anticoagulation Start: 01-05-2025 End: 01-05-2025 Telephone encounter Kolby Kim MD Work Phone: [facility] Comment on above: Patient Update; INR Order Start: 12-25-2024 End: 12-25-2024 [facility] Work Phone: [facility] Comment on above: Paroxysmal atrial fi brillation (HCC) (Primary Dx); History of aortic valve replacement Start: 12-25-2024 End: 12-25-2024 ambulatory [facility] Facility:[facility] Start: 12-18-2024 End: 12-18-2024 ambulatory [facility] Facility:[facility] Start: 12-11-2024 End: 12-11-2024 [facility] Work Phone: [facility] [place] Comment on above: Paroxysmal atrial fi brillation (HCC) (Primary Dx); History of aortic valve replacement Start: 12-11-2024 End: 12-11-2024 ambulatory [facility] Facility:[facility] Start: 11-27-2024 End: 11-27-2024 [facility] Work Phone: [facility] [place] Comment on above: Paroxysmal atrial fi brillation (HCC) (Primary Dx); History of aortic valve replacement Start: 11-27-2024 End: 11-27-2024 ambulatory [facility] Facility:[facility] Start: 11-12-2024 End: 11-12-2024 ambulatory Kleber Mingo Addie LEE [place] Start: 11-06-2024 End: 11-06-2024 ambulatory [facility] Facility:[facility] Start: 11-06-2024 End: 11-06-2024 [facility] Work Phone: [facility] [place] Comment on above: Paroxysmal atrial fi brillation (HCC) (Primary Dx); History of aortic valve replacement Start: 10-21-2024 End: 10-21-2024 ambulatory [facility] Facility:[facility] Start: 10-21-2024 End: 10-21-2024 [facility] Work Phone: [facility] Comment on above: Paroxysmal atrial fi brillation (HCC) (Primary Dx); History of aortic valve replacement Start: 10-17-2024 End: 11-03-2024 ambulatory Shawn Santana MD Work Phone: Neurology Comment on above: Elza Chu Start: 10-17-2024 End: 11-03-2024 Telephone encounter Shawn Santana MD Work Phone: Neurology Comment on above: Medication Authoriza tion (Rivastigmine patch) Start: 10-15-2024 End: 10-15-2024 Telephone encounter Shawn Santnaa MD Work Phone: Neurology Comment on above: Medication Problem Start: 10-14-2024 End: 10-14-2024 [facility] Facility:[facility] Start: 10-14-2024 End: 10-14-[address] 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, unspecified dementia severity (HCC) (Primary Dx); Parkinsonism, unspecified Parkinsonism type (HCC) Start: 10-09-2024 End: 10-09-2024 [facility] Facility:[facility] Start: 10-09-2024 End: 10-09-2024 [facility] Work Phone: [facility] Comment on above: Paroxysmal atrial fi brillation (HCC) (Primary Dx); History of aortic valve replacement Start: 10-02-2024 End: 10-02-2024 ambulatory [facility] Facility:[facility] Start: 10-02-2024 End: 10-02-2024 [facility] Work Phone: [facility] Comment on above: Paroxysmal atrial fi brillation (HCC) (Primary Dx); History of aortic valve replacement Start: 09-24-2024 End: 09-24-2024 ambulatory Joy Adame NP [place] Start: 09-18-2024 End: 09-18-2024 ambulatory KOLBY Yang [facility] Facility:[facility] Start: 09-18-2024 End: 09-18-2024 [facility] Work Phone: [facility] [place] Comment on above: Paroxysmal atrial fi brillation (HCC) (Primary Dx); History of aortic valve replacement Start: 09-11-2024 End: 09-11-2024 [facility] KOLBY Yang [facility] Facility:[facility] Start: 09-11-2024 End: 09-11-2024 [facility] Work Phone: [facility] Comment on above: Paroxysmal atrial fi brillation (HCC) (Primary Dx); History of aortic valve replacement Start: 08-22-2024 End: 08-22-2024 [facility] Facility:[facility] Start: 08-22-2024 End: 08-22-2024 [facility] Work Phone: [facility] Comment on above: Paroxysmal atrial fi brillation (HCC) (Primary Dx); History of aortic valve replacement Start: 08-08-2024 End: 08-08-2024 [facility] KOLBY [facility] Facility:[facility] Start: 08-08-2024 End: 08-08-2024 [facility] Work Phone: [facility] [place] Comment on above: Paroxysmal atrial fi brillation (HCC) (Primary Dx); History of aortic valve replacement Start: 07-18-2024 End: 07-18-2024 [facility] KOLBY [facility] Facility:[facility] Start: 07-18-2024 End: 07-18-2024 [facility] Work Phone: [facility] Comment on above: Paroxysmal atrial fi brillation (HCC) (Primary Dx); History of aortic valve replacement Start: 07-09-2024 End: 07-09-2024 Patient encounter procedure Kolby Kim MD Work Phone: [facility] [place] Comment on above: Parkinsonism, unspec ified Parkinsonism type (HCC) (Primary Dx); Hyperlipidemia LDL goal <100; Aortic valve stenosis with insufficiency, etiology of cardiac valve disease unspecified; 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 congestive heart failure and stage 3 chronic kidney disease, unspecified whether stage 3a or 3b CKD (HCC); Paroxysmal atrial fibrillation (HCC); Bronchiectasis without complication (HCC); Moderate persistent asthma without complication; Chronic obstructive pulmonary disease, unspecified COPD type (HCC); Chronic sinusitis, unspecified location; Impaired glucose tolerance; Compression deformity of vertebra; Lewy body dementia with psychotic disturbance, unspecified dementia severity (HCC); Depression, unspecified depression type; Other disorders of arteries, arterioles and capillaries in diseases classified elsewhere (HCC); Encounter for long-term (current) use of insulin (HCC); 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HCC); Sciatica, right side Start: 07-09-2024 End: 07-09-2024 ambulatory KOLBY KIM Facility:[facility] Start: 07-09-2024 End: 07-09-2024 [facility] Work Phone: [facility] Comment on above: Paroxysmal atrial fi brillation (HCC) (Primary Dx); History of aortic valve replacement Start: 07-08-2024 End: 07-08-2024 ambulatory Kleber Real NP [place] Start: 06-19-2024 End: 06-19-2024 Telephone encounter Kolby Kim MD Work Phone: [facility] Comment on above: Patient Update Start: 06-19-2024 End: 06-19-2024 ambulatory KOLBY KIM Facility:[facility] Start: 06-19-2024 End: 06-19-2024 Anticoagulant drug monitoring [facility] Work Phone: [facility] Comment on above: Paroxysmal atrial fi brillation (HCC) (Primary Dx); History of aortic valve replacement Start: 06-16-2024 ambulatory Brendan Simmons [facility] Start: 06-14-2024 End: 06-18-2024 Evaluation and management of inpatient Faviola Perry Facility:[facility] Start: 06-14-2024 ambulatory Faviola Perry Facility :[facility] Start: 06-11-2024 End: 06-11-2024 ambulatory [facility] Comment on above: Depression Start: 05-30-2024 End: 05-30-2024 Refill Kolby Kim MD Work Phone: [facility] Comment on above: Refill Request Start: 05-15-2024 End: 05-15-2024 ambulatory KOLBY KIM Facility:[facility] Start: 05-15-2024 End: 05-15-[address] [facility] Work Phone: [facility] Comment on above: Paroxysmal atrial fi brillation (HCC) (Primary Dx); History of aortic valve replacement Start: 04-17-2024 End: 04-17-2024 ambulatory KOLBY KIM Facility:[facility] Start: 04-17-2024 End: 04-17-[address] 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, unspecified dementia severity (HCC) (Primary Dx) Start: 04-09-2024 End: 04-09-2024 Office outpatient visit 25 minutes Millie Olmedo APRN.CNP Work Phone: [facility] Comment on above: Midline thoracic erica k pain, unspecified chronicity (Primary Dx); Lewy body dementia with psychotic disturbance, unspecified dementia severity (HCC); Chronic anticoagulation Start: 04-07-2024 End: 04-07-2024 Emergency department patient visit Benito Ewing Facility:[facility] Start: 04-07-2024 End: 04-07-2024 Telephone encounter Kolby Kim MD Work Phone: [facility] Comment on above: Patient Update Start: 04-03-2024 End: 04-04-[address] [facility] Work Phone: [facility] Comment on above: Paroxysmal atrial fi brillation (HCC) (Primary Dx); History of aortic valve replacement Refill Request Start: 04-02-2024 End: 04-02-2024 ambulatory Becca Fenton RN Work Phone: [employer] Comment on above: Community Monitoring Outreach Start: 03-27-2024 End: 03-27-[address] [facility] Work Phone: [facility] Comment on above: Paroxysmal atrial fi brillation (HCC) (Primary Dx); History of aortic valve replacement Start: 03-25-2024 End: 03-25-2024 Emergency department [facility] Facility:[facility] Start: 03-25-2024 End: 03-26-2024 ambulatory Kay De Leon RN NURSE SYSTEM SUPPORT ADMINISTRATOR Comment on above: Difficulty Breathing [facility] Start: 03-17-2024 End: 03-17-2024 ambulatory Becca Fenton RN Work Phone: [employer] Comment on above: Community Monitoring Outreach Start: 03-13-2024 End: 03-13-[address] [facility] Work Phone: [facility] Comment on above: Paroxysmal atrial fi brillation (HCC) (Primary Dx); History of aortic valve replacement Start: 03-10-2024 ambulatory Becca Fenton RN Work Phone: Board Member [employer] Comment on above: Community Monitoring Outreach Start: 03-07-2024 ambulatory Becca Fenton RN Work Phone: Board Member [employer] Comment on above: Community Monitoring Outreach Start: 02-29-2024 ambulatory Becca Fenton RN Work Phone: Board Member Management Comment on above: Community Monitoring Outreach Start: 02-28-2024 End: 02-28-[address] [facility] Work Phone: [facility] Comment on above: Paroxysmal atrial fi brillation (HCC) (Primary Dx); History of aortic valve replacement Start: 02-22-2024 ambulatory Becca Fenton RN Work Phone: Board Member Management Comment on above: Community Monitoring Outreach Start: 02-16-2024 ambulatory Abebe Frederick RN NURSE O N CALL Start: 02-16-2024 Patient encounter procedure Abebe Frederick RN NURSE SYSTEM SUPPORT ADMINISTRATOR Comment on above: Clinical Update Start: 02-13-2024 Telephone encounter Kolby Kim MD Work Phone: [facility] Comment on above: Medication Request Refill Request Start: 02-01-2024 ambulatory Becca Fenton RN Work Phone: [employer] Comment on above: Community Monitoring Outreach Start: 01-30-2024 Telephone encounter Kolby Kim MD Work Phone: [facility] [place] Comment on above: Orders (protime) Start: 01-30-2024 End: 01-30-2024 Anticoagulant drug monitoring [facility] Work Phone: [facility] Comment on above: Paroxysmal atrial fi brillation (HCC) (Primary Dx); History of aortic valve replacement Start: 01-18-2024 ambulatory Becca Fenton RN Work Phone: [employer] Comment on above: Community Monitoring Outreach Start: 01-16-2024 Telephone encounter Kolby Kim MD Work Phone: [facility] Comment on above: medication not on cu rrent med list Start: 01-07-2024 Telephone encounter Kolby Kim MD Work Phone: [facility] Comment on above: Results Start: 01-04-2024 ambulatory Becca Fenton RN Work Phone: [employer] Comment on above: Community Monitoring Outreach Start: 01-02-2024 End: 01-02-2024 Subsequent hospital visit by physician [facility] Work Phone: Radiology Comment on above: Chest pain, unspecif ied type [R07.9] Start: 01-02-2024 End: 01-02-2024 Patient encounter procedure Kolby Kim MD Work Phone: [facility] Comment on above: Chest pain, unspecif ied type (Primary Dx); Parkinsonism, unspecified Parkinsonism type (HCC); Aortic valve stenosis with insufficiency, etiology of cardiac valve disease unspecified; Heart failure, diastolic, chronic (HCC); History of aortic valve replacement; Hyperlipidemia LDL goal <100; Paroxysmal atrial fibrillation (HCC); Bronchiectasis without complication (HCC); Chronic hypoxic respiratory failure, on home oxygen therapy (HCC); Chronic obstructive pulmonary disease, unspecified COPD type (HCC); Chronic sinusitis, unspecified location; Gastroesophageal reflux disease without esophagitis; Stage 3 chronic kidney disease, unspecified whether stage 3a or 3b CKD ([facility]); Impaired glucose tolerance; Compression deformity of vertebra; Lewy body dementia with psychotic disturbance, unspecified dementia severity ([facility]); 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[facility]); Bilateral carotid artery stenosis; Urinary hesitancy Start: 01-02-2024 End: 01-02-[address] [facility] Work Phone: [facility] Comment on above: Paroxysmal atrial fi brillation (HCC) (Primary Dx); History of aortic valve replacement Start: 12-28-2023 Refill Kolby Kim MD Work Phone: [facility] [place] Comment on above: Refill Request Start: 12-25-2023 Telephone encounter Kolby Kim MD Work Phone: [facility] [place] Comment on above: Medication Request Refill Request Start: 12-19-2023 ambulatory Becca Fenton RN Work Phone: [employer] Comment on above: Community Monitoring Outreach Start: 2023 End: [address] [facility] Work Phone: [facility] Comment on above: Paroxysmal atrial fi brillation (HCC) (Primary Dx); History of aortic valve replacement Start: 12-04-2023 ambulatory Becca Fenton RN Work Phone: [employer] Comment on above: Community Monitoring Outreach Start: 12-03-2023 End: 12-03-2023 Patient encounter procedure Shawn Santana MD Work Phone: Neurology Comment on above: 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, unspecified dementia severity (HCC) (Primary Dx); Parkinsonism, unspecified Parkinsonism type (HCC) Start: 11-22-2023 Refill Kolby Kim MD Work Phone: [address] [place] [address] Comment on above: Refill Request Start: 11-20-2023 ambulatory Becca Fenton RN Work Phone: [employer] Comment on above: Community Monitoring Outreach Start: 11-15-2023 End: 11-15-2023 [facility] Work Phone: [facility] Comment on above: Paroxysmal atrial fi brillation (HCC) (Primary Dx); History of aortic valve replacement Start: 11-02-2023 ambulatory Becca Fenton RN Work Phone: [employer] Comment on above: Community Monitoring Outreach Start: 10-18-2023 End: 10-18-2023 Anticoagulant drug monitoring [facility] Work Phone: [facility] Comment on above: Paroxysmal atrial fi brillation (HCC) (Primary Dx); History of aortic valve replacement Refill Request Start: 10-16-2023 ambulatory Becca Fenton RN Work Phone: [employer] Comment on above: Community Monitoring Outreach Start: 10-08-2023 Refill Kolby Kim MD Work Phone: [facility] Comment on above: Refill Request Start: 10-04-2023 End: 10-04-2023 [facility] Work Phone: [facility] Comment on above: Paroxysmal atrial fi brillation (HCC) (Primary Dx); History of aortic valve replacement Start: 09-27-2023 ambulatory Becca Fenton RN Work Phone: [employer] Comment on above: Community Monitoring Outreach Start: 09-20-2023 End: 09-20-2023 [facility] Work Phone: [facility] Comment on above: Paroxysmal atrial fi brillation (HCC) (Primary Dx); History of aortic valve replacement Start: 09-13-2023 ambulatory Becca Fenton RN Work Phone: [employer] Comment on above: Community Monitoring Outreach Start: 09-13-2023 End: 09-13-2023 Anticoagulant drug monitoring [facility] Work Phone: [facility] [place] Comment on above: Paroxysmal atrial fi brillation (HCC) (Primary Dx); History of aortic valve replacement Start: 09-11-2023 End: 09-11-2023 Anticoagulant drug monitoring [facility] Work Phone: [facility] Comment on above: Paroxysmal atrial fi brillation (HCC) (Primary Dx); History of aortic valve replacement Start: 09-07-2023 ambulatory Becca Fenton RN Work Phone: [employer] Comment on above: Community Monitoring Outreach Start: 08-29-2023 ambulatory Tanesha Walker RN Work Phone: [employer] Comment on above: cdm (enrollment) Start: 06-29-2023 Telephone encounter Kolby Kim MD Work Phone: [facility] Comment on above: Results Start: 06-27-2023 End: 06-27-2023 Patient encounter procedure Kolby Kim MD Work Phone: [facility] [place] Comment on above: Paroxysmal atrial fi brillation (HCC) (Primary Dx); Hyperlipidemia LDL goal <100; Aortic valve stenosis with insufficiency, etiology of cardiac valve disease unspecified; Heart failure, diastolic, chronic (HCC); History of aortic valve replacement; 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 congestive heart failure and stage 3 chronic kidney disease, unspecified whether stage 3a or 3b CKD (HCC); Chronic obstructive pulmonary disease, unspecified COPD type (HCC); Bronchiectasis without complication (HCC); Iron deficiency; Gastroesophageal reflux disease without esophagitis; Stage 3 chronic kidney disease, unspecified whether stage 3a or 3b CKD (HCC); Impaired glucose tolerance; Compression deformity of vertebra; Lewy body dementia with psychotic disturbance, unspecified dementia severity (HCC); 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HCC); Bilateral carotid artery stenosis; Chronic hypoxic respiratory failure, on home oxygen therapy ; Vitamin D deficiency, unspecified Start: 06-19-2023 End: 06-19-2023 [facility] Work Phone: [facility] Comment on above: Paroxysmal atrial fi brillation (HCC) (Primary Dx); History of aortic valve replacement Start: 06-13-2023 ambulatory Sunny Estrella RN Work Phone: [employer] Comment on above: community monitoring outreach (CDM-Telephonic outreach) Start: 06-04-2023 End: 06-04-2023 Patient encounter procedure Shawn Santana MD Work Phone: Neurology Comment on above: 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, unspecified dementia severity (HCC) (Primary Dx); Parkinsonism, unspecified Parkinsonism type Start: 05-29-2023 End: 05-29-2023 [facility] Work Phone: [facility] [place] Comment on above: Paroxysmal atrial fi brillation (HCC) (Primary Dx); History of aortic valve replacement Start: 05-15-2023 ambulatory Sunny Estrella RN Work Phone: [employer] Comment on above: community monitoring outreach (CDM-Telephonic outreach) Start: 05-15-2023 End: 05-15-2023 [facility]agulant [facility] Work Phone: [facility] Comment on above: Paroxysmal atrial fi brillation (HCC) (Primary Dx); History of aortic valve replacement Start: 05-01-2023 End: 05-01-2023 [facility]agulant [facility] Work Phone: [facility] Comment on above: Paroxysmal atrial fi brillation (HCC) (Primary Dx); History of aortic valve replacement Start: 04-26-2023 Telephone encounter Kolby Kim MD Work Phone: [facility] [place] Comment on above: Results Start: 04-26-2023 ambulatory KOLBY KIM Facility :[facility] Start: 04-26-2023 End: 04-26-2023 Subsequent hospital visit by physician [facility] Work Phone: Radiology Comment on above: Dysphagia, unspecifi ed type [R13.10] Start: 04-17-2023 End: 04-17-[address] [facility] Work Phone: [facility] Comment on above: Paroxysmal atrial fi brillation (HCC) (Primary Dx); History of aortic valve replacement Start: 04-12-2023 ambulatory Sunny Estrella RN Work Phone: [employer] Comment on above: community monitoring outreach (CDM-Telephonic outreach) Start: 04-11-2023 End: 04-11-2023 Emergency department patient [facility]. Kolby [facility] Work [facility]: Start: 04-11-2023 Telephone encounter Kolby Kim MD Work Phone: [facility] Comment on above: Patient Update Start: 04-03-2023 End: 04-03-[address] [facility] Work Phone: [facility] [place] Comment on above: Paroxysmal atrial fi brillation (HCC) (Primary Dx); History of aortic valve replacement Start: 03-26-2023 End: 03-26-2023 Patient encounter procedure Kolby Kim MD Work Phone: [facility] Comment on above: Weight loss (Primary Dx); Paroxysmal atrial fibrillation (HCC); Aortic valve stenosis with insufficiency, etiology of cardiac valve disease unspecified; Heart failure, diastolic, chronic (HCC) Start: 03-20-2023 End: 03-20-[address] [facility] Work Phone: [facility] Comment on above: Paroxysmal atrial fi brillation (HCC) (Primary Dx); History of aortic valve replacement Start: 03-12-2023 ambulatory Sunny Estrella RN Work Phone: [employer] Comment on above: community monitoring outreach (CDM-Telephonic outreach) Start: 03-08-2023 End: 03-08-2023 Emergency department patient visit Dr. Kolby Kim Work Phone: [facility] Work Phone: Start: 03-08-2023 ambulatory Sunny Estrella RN Work Phone: [employer] Comment on above: community monitoring outreach (CDM-Telephonic outreach) Start: 03-07-2023 End: 03-07-2023 Anticoagulant drug monitoring [facility] Work Phone: [facility] Comment on above: Paroxysmal atrial fi brillation (HCC) (Primary Dx); History of aortic valve replacement Start: 02-26-2023 End: 02-26-2023 Patient encounter procedure Kolby Kim MD Work Phone: [facility] Comment on above: Dysphagia, unspecifi ed type (Primary Dx); Moderate persistent asthma without complication; Chronic obstructive pulmonary disease, unspecified COPD type (HCC); Heart failure, diastolic, chronic (HCC); 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 congestive heart failure and stage 3 chronic kidney disease, unspecified whether stage 3a or 3b CKD (HCC); Weight loss; Hyperglycemia Start: 02-08-2023 ambulatory Sunny Estrella RN Work Phone: [employer] Comment on above: community monitoring outreach (CDM-Telephonic outreach) Start: 02-06-2023 End: 02-06-2023 Anticoagulant drug monitoring [facility] Work Phone: [facility] Comment on above: Paroxysmal atrial fi brillation (HCC) (Primary Dx); History of aortic valve replacement Start: 02-05-2023 Refill Kolby Kim MD Work Phone: [facility] Comment on above: Refill Request Start: 02-05-2023 End: 02-05-[address] Kolby Kim Work Phone: [facility] Work Phone: Start: 01-24-2023 End: 01-24-[address] [facility] Work Phone: Start: 01-23-2023 Telephone encounter Kolby Kim MD Work Phone: [facility] Comment on above: Results Start: 01-23-2023 End: 01-23-2023 Anticoagulant drug monitoring [facility] Work Phone: [facility] Comment on above: Paroxysmal atrial fi brillation (HCC); History of aortic valve replacement Start: 01-13-2023 End: 01-13-2023 Emergency department patient visit Dr. Kolby Kim Work Phone: [facility] Work Phone: Start: 01-01-2023 End: 01-01-2023 Patient encounter procedure Kolby Kim MD Work Phone: [facility] Comment on above: Hyperlipidemia LDL g oal <100 (Primary Dx); Anemia, unspecified type; Iron deficiency; Dyspnea and respiratory abnormalities; Weight loss; Anxiety with depression Start: 01-01-2023 End: 01-01-2023 Anticoagulant drug monitoring [facility] Work Phone: [facility] Comment on above: Paroxysmal atrial fi brillation (HCC); History of aortic valve replacement Start: 12-27-2022 Telephone encounter Kolby Kim MD Work Phone: [facility] Comment on above: Medication Question; Anticoagulation Start: 12-26-2022 End: 12-26-2022 Emergency department patient visit Dr. Kolby Kim Work Phone: [facility] Work Phone: Start: 12-26-2022 End: 12-26-2022 Dr. Kolby Kim Work Phone: [facility] Start: 12-26-2022 Telephone encounter Kolby Kim MD Work Phone: [facility] Comment on above: Shortness of Breath Start: 12-15-2022 Non-patient / Non-visit Dr. Willy Kim Work Phone: [facility] Start: 12-15-2022 Dr. Kolby Elkins Work Phone: [facility] Start: 12-14-2022 End: 12-14-[address] [facility] Work Phone: Start: 12-14-2022 End: 12-14-2022 Dr. Kol[facility] Kim [facility] Start: 12-11-2022 Telephone encounter Kolby Kim MD Work Phone: [facility] Comment on above: Anticoagulation Start: 12-07-2022 ambulatory Sunny Delores GONZALEZ Work Phone: [employer] Comment on above: community monitoring outreach (CDM-Telephonic outreach) Start: 12-07-2022 End: 12-07-[address] Kolby Kim Work Phone: [facility] Work Phone: Start: 12-07-2022 End: 12-07-2022 Dr. 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, unspecified dementia severity (HCC) (Primary Dx); Parkinsonism, unspecified Parkinsonism type (HCC) Start: 11-30-2022 Telephone encounter Treva ravi APRN.[employer]A TESTER Work Phone: [facility] Comment on above: Appointment ( reschedule ) Start: 11-29-2022 Telephone encounter Kolby Kim MD Work Phone: [facility] Comment on above: INR result Start: 11-27-2022 Telephone encounter Kolby Kim MD Work Phone: [facility] Comment on above: Anticoagulation; Res ults Start: 11-21-2022 End: 11-21-2022 ambulatory Treva Chirinos APRN.[employer]STER Work Phone: [facility] Comment on above: Lumbar spondylosis ( Primary Dx); 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HCC); Encounter for long-term (current) use of insulin (HCC) Start: 11-21-2022 End: 11-21-2022 Telemedicine consultation with patient Treva Chirinos APRN.[employer]A TESTER Work Phone: [facility] Start: 11-21-2022 End: 11-21-2022 ambulatory TREVA CHIRINOS Facility:[facility] Start: 11-20-2022 Telephone encounter Kolby Kim MD Work Phone: [facility] Comment on above: Anticoagulation Start: 11-20-2022 End: 11-20-[address] Kolby Kim Work Phone: [facility] Work Phone: Start: 11-20-2022 End: 11-20-2022 Dr. Kolby Kim Work Phone: [facility] Start: 11-17-2022 Refill Kolby Kim MD Work Phone: [facility] Comment on above: Refill Request Start: 11-16-2022 Telephone encounter Gilberto colón MD Work Phone: [facility] Comment on above: Procedure Follow Up (11/14/22 ) Start: 11-14-2022 End: 11-14-2022 ambulatory GILBERTO VIRK Facility:[facility] Start: 11-13-2022 End: 11-13-2022 Emergency department patient visit Dr. Kolby Kim Work Phone: [facility] Work Phone: Start: 11-13-2022 End: 11-13-2022 Dr. Kolby Kim Work Phone: [facility] Start: 11-10-2022 Telephone encounter Treva ravi APRN.[employer]A TESTER Work Phone: [facility] Comment on above: Patient Question Start: 11-08-2022 End: 11-08-[address] [facility] Work Phone: Start: 11-08-2022 End: 11-08-2022 Dr. Kolby Kim Work Phone: [facility] Start: 11-07-2022 End: 11-07-2022 Telemedicine consultation with patient Treva Chirinos APRN.[employer]A TESTER Work Phone: [facility] Start: 11-07-2022 Telephone encounter Kolby Kim MD Work Phone: [facility] Comment on above: Results Start: 11-07-2022 End: 11-07-2022 ambulatory Treva Chirinos APRN.[employer] TESTER Work Phone: [facility] Comment on above: Lumbar spondylosis ( Primary Dx); Facet arthropathy, lumbar Start: 11-06-2022 Telephone encounter Kolby Kim MD Work Phone: [facility] Comment on above: Anticoagulation Start: 11-06-2022 End: 11-06-2022 Patient encounter procedure Kolby Kim MD Work Phone: [facility] Comment on above: NSTEMI (non-ST eleva shawn myocardial infarction) (HCC) (Primary Dx); Paroxysmal atrial fibrillation (HCC); Heart failure, diastolic, chronic (HCC); Hyperlipidemia LDL goal <100; Aortic valve stenosis with insufficiency, etiology of cardiac valve disease unspecified; 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 congestive heart failure and stage 3 chronic kidney disease, unspecified whether stage 3a or 3b CKD ([facility]); Chronic obstructive pulmonary disease, unspecified COPD type ([facility]); Medication monitoring encounter; Weight loss; Lewy body dementia with psychotic disturbance, unspecified dementia severity ([facility]) Start: 11-03-2022 ambulatory Keily Meyerscata THOMSON [facility] Start: 11-03-2022 Non-patient / Non-visit Dr. Willy Kim Work Phone: [facility] Start: 11-03-2022 Dr. Kolby Elkins Work Phone: [facility] Start: 11-02-2022 Non-patient / Non-visit Dr. Wlily Kim Work Phone: [facility] Start: 11-02-2022 Dr. Kolby Elkins Work Phone: [facility] Start: 11-02-2022 Non-patient / Non-visit Dr. Willy Kim Work Phone: [facility] Start: 11-02-2022 Dr. Kolby Elkins Work Phone: [facility] Start: 11-01-2022 End: 11-03-2022 Evaluation and management of inpatient Dr. Kolby Kim Work Phone: [facility] Start: 11-01-2022 Non-patient / Non-visit Dr. Willy Kim Work Phone: [facility] Start: 11-01-2022 End: 11-03-2022 Dr. Kolby Kim Work Phone: [facility] Start: 11-01-2022 Telephone encounter Gilberto colón MD Work Phone: [facility] Comment on above: Patient Question Start: 10-30-2022 End: 10-30-2022 Subsequent hospital visit by physician [facility] Work Phone: Radiology Comment on above: Renal cyst [N28.1] Start: 10-30-2022 Telephone encounter Gilberto colón MD Work Phone: [facility] Comment on above: Procedure Follow Up Start: 10-27-2022 End: 10-27-2022 ambulatory GILBERTO VIRK Facility:[facility] Start: 10-26-2022 End: 10-26-2022 Patient encounter procedure Kolby Kim MD Work Phone: [facility] Comment on above: Bacterial pneumonia (Primary Dx); Chronic obstructive pulmonary disease, unspecified COPD type (HCC); Bronchiectasis without complication (HCC); Paroxysmal atrial fibrillation (HCC); Heart failure, diastolic, chronic (HCC); Chronic respiratory failure with hypoxia (HCC); Renal cyst; 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HCC); 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 congestive heart failure and stage 3 chronic kidney disease, unspecified whether stage 3a or 3b CKD (HCC); Other disorders of arteries, arterioles and capillaries in diseases classified elsewhere (HCC); Chronic kidney disease, stage 3a (HCC); Parkinson's disease (HCC) Start: 10-26-2022 Telephone encounter Kolby Kim MD Work Phone: [facility] Comment on above: Anticoagulation Start: 10-24-2022 ambulatory Kolby Kim MD Work Phone: [facility] Start: 10-24-2022 Telephone encounter Kolby Kim MD Work Phone: [facility] Comment on above: Opened In Error Transition Of Care Start: 10-23-2022 Non-patient / Non-visit Dr. Willy Kim Work Phone: [facility] Start: 10-23-2022 Dr. Kolby Elkins Work Phone: [facility] Start: 10-22-2022 Non-patient / Non-visit Dr. Willy Kim Work Phone: [facility] Start: 10-22-2022 Dr. Kolby Elkins Work Phone: [facility] Start: 10-21-2022 Non-patient / Non-visit Dr. Willy Kim Work Phone: [facility] Start: 10-21-2022 Dr. Kolby Elkins Work Phone: [facility] Start: 10-20-2022 End: 10-23-2022 Evaluation and management of inpatient [facility] Kolby Kim [facility] Start: 10-20-2022 End: 10-23-2022 Dr. Kolby Kim Work Phone: [facility] Start: 10-20-2022 ambulatory Kolby Kim MD Work Phone: [facility] Comment on above: Nurse Triage Call; S hortness of Breath Start: 10-16-2022 Telephone encounter Kolby Kim MD Work Phone: [facility] Comment on above: Patient Update (requ esting to increase medication/) Start: 10-12-2022 Telephone encounter Gilberto colón MD Work Phone: [facility] Comment on above: Orders ([facility] l) Start: 10-12-2022 End: 10-12-2022 Anticoagulant drug monitoring [facility] Work Phone: [facility] [place] Comment on above: Paroxysmal atrial fi brillation (HCC); History of aortic valve replacement Start: 10-10-2022 Telephone encounter Gilberto colón MD Work Phone: [facility] [place] Comment on above: Anticoagulation Patient Update Start: 10-04-2022 End: 10-04-2022 ambulatory KOLBY KIM Facility[facility] Start: 10-04-2022 Telephone encounter Jas Harrell PA-C Work Phone: [facility] Comment on above: Appointment Start: 10-04-2022 End: 10-04-2022 Patient encounter procedure Gilberto Virk MD Work Phone: [facility] [place] Comment on above: Lumbar spondylosis ( Primary Dx); Facet arthropathy, lumbar; Spinal stenosis of lumbar region with neurogenic claudication; Compression deformity of vertebra; Compression fracture of thoracic vertebra, unspecified thoracic vertebral level, sequela; Compression fracture of lumbar spine, non-traumatic, sequela Start: 10-02-2022 ambulatory Sunny Estrella RN Work Phone: [employer] Comment on above: community monitoring outreach (CDM-Telephonic outreach) Start: 10-02-2022 Telephone encounter Gilberto colón MD Work Phone: [facility] [place] Comment on above: Results Start: 09-29-2022 End: 09-29-2022 Patient encounter procedure Jas Harrell PA-C Work Phone: [facility] Comment on above: Polyarthralgia (Prim sky Dx); Vitamin D deficiency; Failure to thrive in adult; Vitamin D deficiency, unspecified ; Interstitial pulmonary disease (HCC) Start: 09-29-2022 End: 09-29-[address] [facility] Work Phone: Coumadin [facility] [place] Comment on above: Paroxysmal atrial fi brillation (HCC); History of aortic valve replacement Start: 09-25-2022 Refill Kolby Kim MD Work Phone: [facility] Comment on above: Refill Request Start: 09-22-2022 End: 09-22-[address] [facility] Work Phone: [facility] Comment on above: Paroxysmal atrial fi brillation (HCC); History of aortic valve replacement Start: 09-19-2022 End: 09-19-2022 Subsequent hospital visit by physician [facility] Anand Cuenca Work Phone: Radiology Comment on above: Compression fracture of lumbar spine, non-traumatic, sequela [M48.56XS] Start: 09-14-2022 End: 09-14-2022 ambulatory KOLBY KIM Facility:[facility] Start: 09-14-2022 End: 09-14-2022 Patient encounter procedure Gilberto Virk MD Work Phone: [facility] [place] Comment on above: Lumbar spondylosis ( Primary Dx); Facet arthropathy, lumbar; Compression deformity of vertebra; Compression fracture of thoracic vertebra, unspecified thoracic vertebral level, sequela; Compression fracture of lumbar spine, non-traumatic, sequela; Radiculopathy of lumbar region; Spinal stenosis of lumbar region with neurogenic claudication Start: 09-13-2022 End: 09-13-2022 Patient encounter procedure Tien Zhang MD Work Phone: Otolaryngology Comment on above: Chronic pansinusitis (Primary Dx); Nasal crusting; Impacted cerumen of right ear Start: 09-03-2022 End: 09-03-2022 Emergency department patient [facility] Kol[facility] Start: 09-03-2022 End: 09-03-2022 Dr. Kol[facility] Kim [facility] Start: 09-03-2022 ambulatory Tamia Weber RN NURSE O N CALL Comment on above: Chest Pain Start: 09-01-2022 End: 09-04-[address] [facility] Work Phone: [facility] Comment on above: Paroxysmal atrial fi brillation (HCC); History of aortic valve replacement Start: 08-31-2022 ambulatory Sunny Estrella RN Work Phone: [employer] Comment on above: community monitoring outreach (CDM-Telephonic outreach) Start: 08-28-2022 Refill Kolby Kim MD Work Phone: [facility] Comment on above: Refill Request Start: 08-25-2022 End: 08-25-[address] [facility] Work Phone: [facility] [place] Comment on above: Paroxysmal atrial fi brillation (HCC); History of aortic valve replacement Start: 08-15-2022 Refill Kolby Kim MD Work Phone: [facility] Comment on above: Refill Request Start: 08-12-2022 End: 08-12-2022 Emergency department patient visit Dr. Kolby Kim Work Phone: [facility] Start: 08-12-2022 End: 08-12-2022 Dr. Kol[facility] Kim [facility] Start: 08-11-2022 End: 08-11-2022 Anticoagulant drug monitoring [facility] Work Phone: [facility] [place] Comment on above: Paroxysmal atrial fi brillation (HCC); History of aortic valve replacement Start: 08-07-2022 End: 08-07-2022 Emergency department patient visit [facility]. Kolby Kim [facility] Start: 08-07-2022 End: 08-07-2022 Dr. Kol[facility] Kim [facility] Start: 08-01-2022 End: 08-01-2022 Patient encounter procedure Tien Zhang MD Work Phone: Otolaryngology Comment on above: Chronic pansinusitis (Primary Dx); Bleeding from right ear Start: 07-28-2022 Telephone encounter Kolby Kim MD Work Phone: [facility] Comment on above: Anticoagulation Start: 07-27-2022 End: 07-27-2022 Patient encounter procedure Kolby Kim MD Work Phone: [facility] Comment on above: Bleeding from right ear (Primary Dx); Other osteoporosis without current pathological fracture; History of aortic valve replacement Start: 07-25-2022 ambulatory Sunny Estrella RN Work Phone: [employer] Comment on above: community monitoring outreach (CDM-Telephonic outreach) Start: 07-20-2022 End: 07-20-2022 Anticoagulant drug monitoring [facility] Work Phone: [facility] [place] Comment on above: Paroxysmal atrial fi brillation (HCC); History of aortic valve replacement Start: 07-11-2022 Telephone encounter Jas Harrell PA-C Work Phone: [facility] Comment on above: Results Start: 07-10-2022 Telephone encounter Kolby Kim MD Work Phone: [facility] Comment on above: Mammogram Order Start: 07-06-2022 End: 07-06-2022 Subsequent hospital visit by physician [facility] Work Phone: Radiology Comment on above: Compression deformit y of vertebra [M43.9] Start: 07-06-2022 End: 07-06-2022 Anticoagulant drug monitoring [facility] Work Phone: [facility] Comment on above: Paroxysmal atrial fi brillation (HCC); History of aortic valve replacement Start: 07-05-2022 End: 07-05-[address] Kol[facility] Kim [facility] Start: 06-29-2022 End: 06-29-2022 Nursing evaluation of patient and report Mi Nurse Work Phone: [facility] Comment on above: Need for vaccination (Primary Dx) Start: 06-12-2022 ambulatory Sunny Estrella RN Work Phone: [employer] Comment on above: community monitoring outreach (CDM telephonic outreach) Start: 06-08-2022 ambulatory Sunny Estrella RN Work Phone: [employer] Comment on above: community monitoring outreach (CDM telephonic outreach/) Start: 06-07-2022 End: 06-07-2022 Refill Kolby Kim MD Work Phone: [facility] Comment on above: Refill Request Start: 06-07-2022 Non-patient / Non-visit Dr. Willy Kim Work Phone: [facility] Start: 06-07-2022 End: 06-07-[address] Kolby Kim Work Phone: [facility] Start: 06-01-2022 End: 06-01-2022 Anticoagulant drug monitoring [facility] Work Phone: [facility] Comment on above: Paroxysmal atrial fi brillation (HCC); History of aortic valve replacement Start: 05-30-2022 Refill Kolby Kim MD Work Phone: [facility] Comment on above: Refill Request Start: 05-29-2022 Refill Kolby Kim MD Work Phone: [facility] Comment on above: Refill Request Start: 05-25-2022 ambulatory Ivis philip RN Work Phone: [employer] Comment on above: Community Monitoring Outreach (CDM Telephonic) Start: 05-25-2022 End: 05-25-2022 [facility] Comment on above: Paroxysmal atrial fi brillation (HCC); History of aortic valve replacement Start: 05-24-2022 End: 05-24-2022 Emergency department patient visit Dr. Kolby Kim Work Phone: [facility] Start: 05-22-2022 End: 05-22-[address] Kolby Kim Work Phone: [facility] Start: 05-20-2022 End: 05-20-2022 ambulatory [facility] [place] Work Phone: [facility] Comment on above: Arrived Start: 05-12-2022 Telephone encounter Lindy Mark [facility] Comment on above: Advance Directives A ssist Start: 05-11-2022 End: 05-11-2022 Anticoagulant drug monitoring [facility] Work Phone: [facility] Comment on above: Paroxysmal atrial fi brillation (HCC); History of aortic valve replacement Start: 05-10-2022 ambulatory Ivis philip RN Work Phone: [employer] Comment on above: Community Monitoring Outreach (CDM Telephonic) Start: 05-05-2022 End: 05-05-2022 Patient encounter procedure Radha Sanchez MD Work Phone: Neurology Comment on above: Lewy body dementia w ith other behavioral disturbance, unspecified dementia severity (HCC) (Primary Dx); Parkinsonism, unspecified Parkinsonism type (HCC); Paroxysmal atrial fibrillation (HCC); Depression, unspecified depression type; Chronic obstructive pulmonary disease, unspecified COPD type (HCC) Start: 05-02-2022 End: 05-02-2022 Anticoagulant drug monitoring [facility] Work Phone: [facility] Comment on above: Paroxysmal atrial fi brillation (HCC); History of aortic valve replacement Start: 04-25-2022 End: 04-25-2022 Anticoagulant drug monitoring [facility] Work Phone: [facility] Comment on above: Paroxysmal atrial fi brillation (HCC); History of aortic valve replacement Start: 04-19-2022 End: 04-19-2022 Patient encounter procedure Nat Benavides APRN.[employer] Work Phone: [place] [facility] Comment on above: Skin infection (Prim sky Dx) Start: 04-11-2022 ambulatory Ivis philip RN Work Phone: [employer] Comment on above: Community Monitoring Outreach (CDM Telephonic) Start: 04-05-2022 End: 04-05-2022 Anticoagulant drug monitoring [facility] Work Phone: [facility] Comment on above: Paroxysmal atrial fi brillation (HCC); History of aortic valve replacement Start: 04-04-2022 End: 04-04-[address] Kol[facility] Start: 03-28-2022 ambulatory Ivis philip RN Work Phone: [employer] Start: 03-28-2022 Follow-up encounter Ivis Carrington RN Work Phone: [employer] Comment on above: Community Monitoring Outreach (CDM Telephonic Follow Up) Start: 03-21-2022 End: 03-21-2022 Patient encounter procedure Millie Olmedo APRN.[employer] Work Phone: [facility] [place] Comment on above: Hypertension, unspec ified type (Primary Dx); Anxiety; Chronic obstructive pulmonary disease, unspecified COPD type (HCC); Lewy body dementia without behavioral disturbance (HCC); Heart failure, diastolic, chronic (HCC); Red eye; Hyperlipidemia LDL goal <100 Start: 03-20-2022 End: 03-20-2022 [facility] Work [facility] [place] Comment on above: Paroxysmal atrial fi brillation (HCC); History of aortic valve replacement Start: 03-16-2022 End: 03-16-2022 [facility] Work [facility]: [facility] [place] Comment on above: Paroxysmal atrial fi brillation (HCC); History of aortic valve replacement Start: 03-15-2022 Telephone encounter Kolby Kim MD Work Phone: [facility] [place] Comment on above: Medication Problem Start: 03-14-2022 ambulatory Ivis philip RN Work Phone: [facility] Start: 03-14-2022 Follow-up encounter Ivis Carrington RN Work Phone: [employer] Comment on above: Community Monitoring Outreach (Telephonic Follow Up) Start: 03-13-2022 Telephone encounter Kolby Kim MD Work Phone: [facility] Comment on above: Medication Problem ( warfarin) Start: 03-09-2022 End: 03-09-2022 [facility] Work [facility]: [facility] [place] Comment on above: Paroxysmal atrial fi brillation (HCC); History of aortic valve replacement Start: 03-07-2022 Refill Kolby Kim MD Work Phone: [facility] [place] Comment on above: Refill Request Start: 03-01-2022 Refill Kolby Kim MD Work Phone: [facility] [place] Comment on above: Refill Request Start: 02-28-2022 Telephone encounter Kolby Kim MD Work Phone: [facility] Comment on above: Anticoagulation Start: 02-20-2022 End: 02-20-2022 Subsequent hospital visit by physician [facility] [place] Work Phone: Radiology Comment on above: Cough, unspecified t ype [R05.9] Start: 02-20-2022 End: 02-20-2022 Patient encounter procedure Kolby Kim MD Work Phone: [facility] Comment on above: Acute cough (Primary Dx); Depression, unspecified depression type; Paroxysmal atrial fibrillation (HCC); Bronchiectasis without complication (HCC); Chronic obstructive pulmonary disease, unspecified COPD type (HCC); Chronic sinusitis, unspecified location; Cough, unspecified type Start: 02-16-2022 End: 02-16-2022 Anticoagulant drug monitoring [facility] Work Phone: [facility] [place] Comment on above: Paroxysmal atrial fi brillation (HCC); History of aortic valve replacement Start: 02-14-2022 ambulatory Ivis philip RN Work Phone: [employer] Start: 02-14-2022 Follow-up encounter Ivis Carrington RN Work Phone: [employer] Comment on above: Community Monitoring Outreach (Telephonic Follow Up) Start: 02-08-2022 Telephone encounter Kolby Kim MD Work Phone: [facility] Comment on above: Blood Pressure Check Start: 02-08-2022 End: 02-08-2022 Nursing evaluation of patient and report Mi Nurse Work Phone: [facility] [place] Comment on above: Hypertension, unspec ified type (Primary Dx) Start: 01-31-2022 ambulatory Ivis philip RN Work Phone: [employer] Start: 01-31-2022 Follow-up encounter Ivis Carrington RN Work Phone: [employer] Comment on above: Community Monitoring Outreach (Telephonic Follow Up) Start: 01-31-2022 End: 01-31-[address] [facility] Work Phone: [facility] Comment on above: Paroxysmal atrial fi brillation (HCC); History of aortic valve replacement Start: 01-24-2022 End: 01-24-2022 [facility] Work [facility]: [facility] Comment on above: Paroxysmal atrial fi brillation (HCC); History of aortic valve replacement Start: 01-19-2022 End: 01-19-2022 Emergency department patient visit Dr. Kolby Kim Work Phone: [facility] Start: 01-17-2022 ambulatory Ivis philip RN Work Phone: [facility] [employer] Start: 01-17-2022 Follow-up encounter Ivis Carrington RN Work Phone: [employer] Comment on above: Community Monitoring Outreach (Telephonic Follow Up) Start: 01-12-2022 End: 01-12-2022 [facility]: [facility] Comment on above: Paroxysmal atrial fi brillation (HCC); History of aortic valve replacement Start: 01-09-2022 Telephone encounter Kolby Kim MD Work Phone: [facility] Comment on above: Blood Pressure Check Start: 01-09-2022 End: 01-09-2022 Nursing evaluation of patient and report Mi Nurse Work Phone: [facility] Comment on above: History of aortic va lve replacement (Primary Dx); Paroxysmal atrial fibrillation (HCC); Aortic valve stenosis with insufficiency, etiology of cardiac valve disease unspecified Start: 01-02-2022 ambulatory Ivis philip RN Work Phone: [email or web address] Start: 01-02-2022 Follow-up encounter Ivis Carrington RN Work Phone: [employer] Comment on above: Community Monitoring Outreach (Telephonic Follow Up) Start: 12-28-2021 End: 12-28-2021 Emergency department patient visit Dr. Kolby Kim Work Phone: [facility] Start: 12-28-2021 Telephone encounter Kolby Kim MD Work Phone: [facility] Comment on above: Forms Start: 12-16-2021 ambulatory [facility] Start: 12-16-2021 Follow-up encounter Ivis Carrington RN Work Phone: [employer] Comment on above: Community Monitoring Outreach (Telephonic Follow Up) Start: 12-15-2021 ambulatory Ivis philip RN Work Phone: [facility] [employer] Start: 12-15-2021 Follow-up encounter Ivis Carrington RN Work Phone: [employer] Comment on above: Community Monitoring Outreach (Telephonic Follow Up) Start: 12-15-2021 End: 12-15-2021 [facility] Work [facility]: [facility] Comment on above: Paroxysmal atrial fi brillation (HCC); History of aortic valve replacement Start: 12-08-2021 End: 12-08-2021 Anticoagulant drug monitoring [facility] Work Phone: [facility] [place] Comment on above: Paroxysmal atrial fi brillation (HCC); History of aortic valve replacement Start: 12-07-2021 End: 12-07-2021 Patient encounter procedure Kolby Kim MD Work Phone: [facility] Comment on above: Chronic obstructive pulmonary disease, unspecified COPD type (HCC) (Primary Dx); Lewy body dementia without behavioral disturbance (HCC); Hyperlipidemia LDL goal <100; History of aortic valve replacement; Heart failure, diastolic, chronic (HCC); Paroxysmal atrial fibrillation (HCC); Aortic valve stenosis with insufficiency, etiology of cardiac valve disease unspecified; Stage 3 chronic kidney disease, unspecified whether stage 3a or 3b CKD (HCC); Nontoxic uninodular goiter; Impaired glucose tolerance; Angiomyolipoma of left kidney; Vitamin D deficiency; Gastroesophageal reflux disease without esophagitis; Anemia, unspecified type; Iron deficiency; Anxiety Start: 12-01-2021 ambulatory Ivis philip RN Work Phone: [email or web address] Start: 12-01-2021 Follow-up encounter Ivis Carrington RN Work Phone: [employer] Comment on above: Community Monitoring Outreach (Telephonic Follow Up) Start: 12-01-2021 End: 12-01-[address] [facility] Work Phone: [facility] Comment on above: Paroxysmal atrial fi brillation (HCC); History of aortic valve replacement; History of heart valve replacement Start: 11-29-2021 End: 11-29-[address] Kolby Kim Work Phone: [facility] Start: 11-17-2021 ambulatory Ivis philip RN [email or web address] Start: 11-17-2021 Follow-up encounter Ivis Carrington RN [employer] Comment on above: Community Monitoring Outreach (Telephonic Follow Up) Start: 11-17-2021 End: 11-17-[address] [facility] Work Phone: [facility] Comment on above: Paroxysmal atrial fi brillation (HCC); History of aortic valve replacement Start: 10-20-2021 ambulatory Ivis philip RN [email or web address] Start: 10-20-2021 Follow-up encounter Ivis Carrington RN [employer] Comment on above: Community Monitoring Outreach (Telephonic Follow Up) Start: 10-19-2021 End: 10-19-2021 Patient encounter procedure Kolby Kim MD Work Phone: [facility] Comment on above: Fall, subsequent enc ounter (Primary Dx); Advance care planning; Chronic obstructive pulmonary disease, unspecified COPD type (HCC); Cough; Depression, unspecified depression type; Dyspnea and respiratory abnormalities Start: 10-06-2021 End: 10-06-[address] Kolby Kim Work Phone: [facility]-Laboratory, Specimen Start: 10-04-2021 End: 10-04-[address] oKlby Kim Work Phone: [facility] Medicine [facility] Start: 10-03-2021 End: 10-03-2021 Emergency department patient visit Dr. Kolby Kim Work Phone: [facility]Emergency [facility] Start: 09-18-2021 End: 09-18-2021 Emergency department patient visit Dr. Kolby Kim Work Phone: [facility] Start: 09-16-2021 End: 09-16-2021 Subsequent hospital visit by physician [facility] Work Phone: Radiology Comment on above: Chronic obstructive pulmonary disease, unspecified COPD type (HCC) [J44.9] Start: 07-20-2021 End: 07-20-2021 Subsequent hospital visit by physician [facility] Work Phone: Radiology Comment on above: Cough [R05.9] Start: 06-02-2021 End: 06-02-2021 Subsequent hospital visit by physician [facility] Work Phone: Radiology Comment on above: Bacterial pneumonia [J15.9] Start: 06-21-2020 End: 06-21-2020 Subsequent hospital visit by physician [facility] Work Phone: Radiology Comment on above: DDD (degenerative di sc disease), lumbar [M51.36] Procedures Date Procedure Procedure Detail Performing Clinician Start: 04-14-2025 Prothrombin time [facility] Provider Start: 02-10-2025 Prothrombin time [facility] Provider Start: 01-15-2025 Prothrombin time [facility] Provider Start: 01-06-2025 Prothrombin time [facility] Provider Start: 01-02-2024 Radiologic exam chest 2 views Kolby Kim MD Work Phone: Start: 01-02-2024 Ecg routine ecg w/least 12 lds i&r only Kolby Kim MD Work Phone: Start: 01-02-2024 Prothrombin time [facility] Provider Start: 04-26-2023 Radiologic exam esophagus single contrast study Kolby Kim MD Work Phone: Start: 04-11-2023 Plain chest X-ray Dr. Kolby Kim Work Phone: Start: 03-08-2023 Plain chest X-ray Dr. Kolby Kim Work Phone: Start: 03-08-2023 SARS-CoV-2 & FLU Antigen (Rapid) Dr. Kolby Kim Work Phone: Start: 12-26-2022 Plain chest X-ray Dr. Kolby Kim Work Phone: Start: 11-13-2022 Plain chest X-ray Dr. Kolby Kim Work Phone: Start: 11-01-2022 Plain chest X-ray Dr. Kolby Kim Work Phone: Start: 10-30-2022 Us retroperitoneal real time w/image complete Kolby Kim MD Work Phone: Start: 10-20-2022 Plain chest X-ray Dr. Kolby Kim Work Phone: Start: 10-20-2022 CT of thorax, abdomen and pelvis with contrast Dr. Kolby Kim Work Phone: Start: 09-19-2022 Radex spine lumbosacral 2/3 views Gilberto Virk MD Work Phone: Start: 09-03-2022 Plain chest X-ray Dr. Kolby Kim Work Phone: Start: 08-12-2022 Plain chest X-ray Dr. Kolby Kim Work Phone: Start: 08-07-2022 Plain chest X-ray Dr. Kolby Kim Work Phone: Start: 07-06-2022 Radex spine lumbosacral 2/3 views Kolby Kim MD Work Phone: Start: 06-29-2022 [employer] COVID-19 BIVALENT BOOSTER VACCINE, AGE 12+ YR Kolby Kim MD Work Phone: Start: 05-24-2022 Plain chest X-ray Dr. Kolby Kim Work Phone: Start: 05-20-2022 INFLU[employer]ZA SEASONAL QUADRIVALENT HIGH DOSE AGE 65+ Heath Morton Work Phone: Start: 02-20-2022 Radiologic exam chest 2 views Kolby Kim MD Work Phone: Start: 01-19-2022 CT angiography of head and neck Dr. Kolby Kim Work Phone: Start: 01-19-2022 CT of head without contrast Dr. Kolby Kim Work Phone: Start: 01-19-2022 Plain chest X-ray Dr. Kolby Kim Work Phone: Start: 12-28-2021 Plain chest X-ray Dr. Kolby Kim Work Phone: Start: 12-28-2021 SARS-CoV-2 & FLU Antigen (Rapid) Dr. Kolby Kim Work Phone: Start: 12-15-2021 Prothrombin time [facility] Provider Start: 10-06-2021 Investigation of transfusion reaction Dr. Kolby Kim Work Phone: Start: 10-06-[address] Kolby Kim Work Phone: Start: 10-03-2021 Plain chest X-ray Dr. Kolby Kim Work Phone: Start: 10-03-2021 Influenza Types A,B Direct FA (SETH) Dr. Kolby Kim Work Phone: Start: 10-03-[address] Kolby Kim Work Phone: Start: 10-03-2021 End: 10-03-[address] Kolby Kim Work Phone: Start: 09-18-2021 Pelvis X-ray Dr. Kolby Kim Work Phone: Start: 09-18-2021 SARS-CoV-2 Antigen (Rapid) Dr. Kolby lai Work Phone: Start: 09-18-2021 CT of head without contrast Dr. oKlby Kim Work Phone: Start: 09-18-2021 Radiography of sacrococcygeal spine Dr. Kolby Kim Work Phone: Start: 09-18-2021 X-ray of lumbosacral spine Dr. Kolby lai Work Phone: Start: 09-16-2021 Radiologic exam chest 2 views Jas Harrell PA-C Work Phone: Start: 07-20-2021 Radiologic exam chest 2 views Criss Ryan PA-C Work Phone: Start: 06-02-2021 Radiologic exam chest 2 views Kolby Kim MD Work Phone: Start: 06-21-2020 Radex spine lumbosacral 2/3 views Kolby Kim MD Work Phone: Start: 02-09-2017 End: 02-20-2017 Echocardiography Tia Hampton PA-C Work Phone: Start: 02-09-2017 End: 02-09-2017 Follow Up Appt 6 months Tia russo PA-C Work Phone: Start: 02-09-2017 End: 02-09-2017 PFM Tia Hampton PA-C Work Phone: Start: 12-26-2016 End: 12-26-2016 *BMP Rory Mckay MD Start: 08-10-2016 End: 08-10-2016 Dietary management education, guidance, and counseling Ag Whitfield Start: 08-10-2016 End: 08-10-2016 Documentation of current medications Ag Whitfield Start: 08-10-2016 End: 08-10-2016 Follow Up Appt 6 months Rory Mckay MD Start: 08-10-2016 End: 08-10-2016 MMM Rory Mckay MD Start: 05-13-2016 End: 05-16-2016 Ct thorax w/dye Tia Hampton PA-C Work Phone: Start: 05-12-2016 End: 05-12-2016 *Creatinine, Serum Rory Mckay MD Start: 01-11-2016 End: 02-01-2017 *Hepatic Function Panel Rory Mckay MD Start: 01-11-2016 End: 02-01-2017 Lipid panel [AGGREGATE] Rory Mckay MD Start: 07-14-2015 End: 07-29-2015 *BMP Rory Mckay MD Start: 07-14-2015 End: 07-14-2015 Follow Up Appt 6 months Rory Mckay MD Start: 07-14-2015 End: 07-14-2015 MMM Rory Mckay MD Start: 07-05-2015 End: 07-12-2015 *Hepatic Function Panel Rory Mckay MD Start: 07-05-2015 End: 07-12-2015 Lipid panel [AGGREGATE] Rory Mckay MD Start: 01-12-2015 End: 01-18-2015 *BMP Tia Hampton PA-C Work Phone: Start: 01-12-2015 End: 01-18-2015 *CBC with Differential Tia drake PA-C Work Phone: Start: 01-12-2015 End: 01-13-2015 Documentation of current medications Tia Hampton PA-C Work Phone: Start: 01-12-2015 End: 01-12-2015 Echocardiography Tia Hampton PA-C Work Phone: Start: 01-12-2015 End: 01-12-2015 Follow Up Appt 6 months Tia russo PA-C Work Phone: Start: 01-12-2015 End: 01-18-2015 Magnesium Tia Hampton PA-C Work Phone: Start: 01-12-2015 End: 01-12-2015 PFM Tia Hampton PA-C Work Phone: Start: 01-12-2015 End: 01-18-2015 Thyroid stimulating hormone (TSH) Tia Hampton PA-C Work Phone: Start: 01-12-2015 End: 01-18-2015 Thyroxine (T4) Tia Hampton PA-C Work Phone: Start: 12-28-2014 End: 01-01-2015 *Hepatic Function Panel Rory Mckay MD Start: 12-28-2014 End: 01-01-2015 Lipid panel [AGGREGATE] Rory Mckay MD Start: 07-15-2014 End: 01-12-2015 Ct thorax w/dye Rory Mckay MD Start: 07-15-2014 End: 07-31-2014 Follow Up Appt 6 months Rory Mckay MD Start: 07-15-2014 End: 07-31-2014 MMM Rory Mckay MD Start: 07-14-2014 End: 07-14-2014 *Hepatic Function Panel Rory Mckay MD Start: 04-27-2014 End: 07-13-2014 Lipid panel [AGGREGATE] Rory Mckay MD Start: 03-16-2014 End: 01-12-2015 Follow Up Appt Other Tia bond PA-C Work Phone: Start: 02-27-2014 End: 06-05-2015 Lipid panel [AGGREGATE] Rory Mckay MD Start: 12-11-2013 End: 12-11-2013 Follow Up Appt 3 months Rory Mckay MD Start: 12-11-2013 End: 12-11-2013 MMJas Mckay MD Start: 11-21-2013 End: 02-13-2014 Cardiac Rehab Tia Hampton PA-C Work Phone: Start: 11-21-2013 End: 01-12-2015 Cardiovascular stress test using treadmill Tia Hampton PA-C Work Phone: Start: 11-21-2013 End: 11-21-2013 Follow Up Appt Other Tia bond PA-C Work Phone: Start: 10-30-2013 End: 10-30-2013 Alcoholism counseling Ag Whitfield Start: 10-30-2013 End: 10-30-2013 *CBC with Differential Rory Mckay MD Start: 10-30-2013 End: 10-30-2013 Electrocardiogram, complete Rory nicholas MD Start: 10-30-2013 End: 11-18-2013 Follow up Appt 3 weeks Rory Mckay MD Start: 10-30-2013 End: 10-30-2013 Follow Up Appt 6 weeks Rory Mckay MD Start: 10-30-2013 End: 11-18-2013 MMM Rory Mckay MD Start: 10-30-2013 End: 10-30-2013 PFM Rory Mckay MD Start: 10-02-2013 End: 10-02-2013 *BMP Rory Mckay MD Start: 09-27-2013 End: 09-27-2013 *Hepatic Function Panel Rory Mckay MD Start: 09-22-2013 End: 09-27-2013 *BMP Tia Hampton PA-C Work Phone: Start: 09-18-2013 End: 01-12-2015 Follow Up Appt Other Tia bond PA-C Work Phone: Start: 09-18-2013 End: 11-18-2013 PFM Tia Hampton PA-C Work Phone: Start: 08-30-2013 End: 09-11-2013 *Hepatic Function Panel Rory Mckay MD Start: 08-30-2013 End: 09-11-2013 Lipid panel [AGGREGATE] Rory Mckay MD Start: 08-25-2013 End: 08-25-2013 Follow Up Appt Other Tia bond PA-C Work Phone: Start: 06-18-2013 End: 06-18-2013 Follow Up Appt 6 months Rory Mckay MD Start: 06-18-2013 End: 06-18-2013 MMM Rory Mckay MD Start: 06-11-2013 End: 02-01-2017 Chest x-ray Lenore White MD Start: 03-28-2013 End: 08-13-2013 24 hour holter monitor Rory Mckay MD Start: 02-11-2013 End: 02-11-2013 Follow Up Appt Other Tia bond PA-C Work Phone: Start: 01-27-2013 End: 03-21-2013 *Hepatic Function Panel Rory Mckay MD Start: 01-27-2013 End: 03-21-2013 Lipid panel [AGGREGATE] Rory Mckay MD Start: 12-31-2012 End: 12-31-2012 Follow Up Appt Other Tia bond PA-C Work Phone: Start: 11-28-2012 End: 12-31-2012 Follow up Appt 3 weeks Tia drake PA-C Work Phone: Start: 11-28-2012 End: 11-28-2012 Follow Up Appt 6 months Tia russo PA-C Work Phone: Start: 11-28-2012 End: 12-31-2012 MMM Tia Hampton PA-C Work Phone: Start: 11-28-2012 End: 11-28-2012 PFM Tia Hampton PA-C Work Phone: Start: 09-05-2012 End: 02-01-2017 Urine culture, bacteria Lenore Colón Start: 08-26-2012 End: 11-18-2012 Chest x-ray Rory Mckay MD Start: 08-26-2012 End: 11-28-2012 Ct thorax w/dye Rory Mckay MD Start: 08-26-2012 End: 11-18-2012 Echocardiography Rory Mckay MD Start: 08-26-2012 End: 08-26-2012 Follow Up Appt 6 months Rory Mckay MD Start: 08-26-2012 End: 08-26-2012 PFM Rory Mckay MD Start: 08-15-2012 End: 02-01-2017 *CBC with Differential Lenore White MD Start: 08-15-2012 End: 02-01-2017 *CMP Complete Metabolic Panel Lenore White MD Start: 08-15-2012 End: 01-01-2015 Lipid panel [AGGREGATE] Lenore Colón Start: 08-15-2012 End: 02-01-2017 Rheumatoid factor, quant Lenore White MD Start: 08-01-2012 End: 02-01-2017 Neisseria gonorrhoeae [Presence] in Unspecified specimen by Organism specific culture Lenore White MD Start: 07-30-2012 End: 08-21-2012 *Hepatic Function Panel Rory Mckay MD Start: 07-30-2012 End: 08-21-2012 Lipid panel [AGGREGATE] Rory Mckay MD Start: 07-10-2012 End: 02-01-2017 Bacteria identified in Urine by Culture Lenore White MD Start: 07-10-2012 End: 02-01-2017 Lipid panel [AGGREGATE] Lenore aMrk D Start: 02-15-2012 End: 02-19-2012 *Hepatic Function Panel Rory Mckay MD Start: 02-15-2012 End: 11-18-2012 Ct thorax w/contrast material Rory Mckay MD Start: 02-15-2012 End: 02-15-2012 Follow Up Appt 6 months Rory Mckay MD Start: 02-15-2012 End: 11-18-2012 Lipid panel [AGGREGATE] Rory Mckay MD Start: 02-15-2012 End: 11-18-2012 Urine culture, bacteria Rory Mckay MD Start: 10-05-2011 End: 08-21-2012 *Hepatic Function Panel Rory Mckay MD Start: 10-05-2011 End: 11-18-2012 Echocardiography Rory Mckay MD Start: 10-05-2011 End: 10-05-2011 Follow Up Appt 6 months Rory Mckay MD Start: 10-05-2011 End: 08-21-2012 Lipid panel [AGGREGATE] Rory Mckay MD Start: 12-19-2010 Replacement of aortic valve Aortic valve replacement Ag Whitfield Influenza Types A,B Direct FA (SETH) Dr. Kolby Kim Work Phone: Investigation of transfusion reaction Dr. Kolby Kim Work Phone: Legionella pneumophi la antigen assay Dr. Kolby Kim Work Phone: Respiratory microbia l culture Dr. Kolby Kim Work Phone: Respiratory Panel (PCR) Dr. Kolby Kim Work Phone: SARS-CoV-2 & FLU Ant igen (Rapid) Dr. Kolby Kim Work Phone: SARS-CoV-2 & FLU Ant igen (Rapid) Dr. Kolby Kim Work Phone: Streptococcus pneumo niae Antigen (M Dr. Kolby Kim Work Phone: Urine culture Dr. Kolby Elkins Work Phone: Viral antigen assay Dr. Mitchell meza Julio Work Phone: Dr. Kolby swan Work Phone: Dr. Kolby swan Work Phone: Plan of Treatment Date Care Activity Detail Author Start: 01-01-2027 Diabetes Screening [facility] Start: 06-27-2026 Diabetes Screening [facility] Start: 02-26-2026 DIABETES SCREEN DIABETES SCREEN [facility] Start: 02-26-2026 Diabetes Screening Diabetes Screenin [facility] Start: 01-12-2026 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 Disease Visit Annual PCP Team Chronic Disease Visit [facility] Start: 01-12-2026 Covid-19 Vaccine ( season) Covid-19 Vaccine ( season) [facility] Comment on above: Postponed from 11/27 (Declined at this time) Start: 11-06-2025 DIABETES SCREEN DIABETES SCREEN [facility] Start: 10-26-2025 DIABETES SCREEN DIABETES SCREEN [facility] Start: 10-26-2025 End: 10-26-2025 Patient encounter procedure 10/26/2025 12:00 PM EDT Office Visit Neurology [address] [facility] [place] [phone] Shawn Santana MD [address] [place] [address] Return in about 6 months (around 10/11/2025). Neurology Comment on above: Return in about 6 mo nths (around 10/11/2025). Start: 09-29-2025 DIABETES SCREEN DIABETES SCREEN [facility] Start: 07-27-2025 End: 07-27-2025 Patient encounter procedure 07/27/2025 1:00 PM EST Office Visit [facility] [place] [address] [place], [place] [id number] Kolby Kim MD [address] [place], [place] [id number] physical [facility] [place] Comment on above: physical Start: 07-09-2025 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 Disease Visit Annual PCP Team Chronic Disease Visit [facility] Start: 07-09-2025 Shingrix Vaccine (1 of 2) Her grix Vaccine (1 of 2) [facility] Comment on above: Postponed from 12/13 (Declined at this time) Start: 07-09-2025 Urine microalbumin profile DTaP,Tdap,Td Vaccine (1 - Tdap) [facility] Comment on above: Postponed from 06/30 (Declined at this time) Start: 07-08-2025 DIABETES SCREEN DIABETES SCREEN [facility] Start: 05-07-2025 End: 05-07-2025 Anticoagulant drug monitoring 05/07/2025 1:00 PM EDT Antico[facility] [place] [address] [place], [place] [address] Wstr, An[facility]ag [facility] [address] [place], [place] [id number] inr [facility] [place] Comment on above: inr Start: 04-14-2025 End: 04-14-2025 Anticoagulant drug monitoring 04/14/2025 1:15 PM EDT Anticoagulation Visit [facility] [place] [address] [place] [address] Wstr, [facility] [address] [place] [address] inr [facility] [place] Comment on above: inr Start: 04-13-2025 End: 04-13-2025 Patient encounter procedure Neurology Comment on above: 5 month follow up Start: 04-09-2025 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 Disease Visit Annual PCP Team Chronic Disease Visit [facility] Start: 04-01-2025 End: 04-01-2025 Anticoagulant drug monitoring 04/01/2025 1:15 PM EDT Anticoagulation [facility] [place] [address] [place] [address] Wstr, Anticoag [facility] [address] [place] [address] inr [facility] [place] Comment on above: inr Start: 03-30-2025 Influenza vaccination Influenza Vacc ine (#1) [facility] Start: 03-26-2025 End: 03-26-2025 Anticoagulant drug monitoring 03/26/2025 1:15 PM EDT Anticoagulation Visit [facility] [address] [place] [address] Wstr, Anticoag [facility] [address] [place] [address] inr [facility] [place] Comment on above: inr Start: 03-19-2025 End: 03-19-2025 Anticoagulant drug monitoring 03/19/2025 1:15 PM EDT Anticoagulation Visit [facility] [place] [address] [facility] [place] [address] Wstr, [facility] [address] [place] [address] inr [facility] [place] Comment on above: inr Start: 02-26-2025 End: 02-26-2025 Anticoagulant drug monitoring 02/26/2025 1:15 PM EDT Anticoagulation Visit [facility] [place] [address] [place] [address] Wstr, An[facility]ag [facility] [place] [address] [facility] [place] [address] inr [facility] [place] Comment on above: inr Start: 02-10-2025 End: 02-10-2025 Anticoagulant drug monitoring 02/10/2025 1:15 PM EDT Anticoagulation Visit [facility] [place] [address] [place] [address] Wstr, Anticoag [facility] [place] [address] [place] [address] inr [facility] [place] Comment on above: inr Start: 01-29-2025 End: 01-29-2025 Anticoagulant drug monitoring 01/29/2025 1:15 PM EDT Antico[facility] Visit [facility] [place] [address] [place] [address] Wstr, Anticoag [facility] [place] [address] [place] [address] inr [facility] [place] Comment on above: inr Start: 01-15-2025 End: 01-15-2025 Anticoagulant drug monitoring 01/15/2025 1:00 PM EDT Anticoagulation Visit [facility] [place] [address] [place] [address] Wstr, Anticoag [facility] [place] [address] [place] [address] inr [facility] [place] Comment on above: inr Start: 01-12-2025 End: 01-12-2025 Patient encounter procedure 01/12/2025 1:40 PM EDT Office Visit [facility] [place] [address] [place] [address] Kolby Kim MD [address] [place] [address] 6 month follow up [facility] [place] Comment on above: 6 month follow up Start: 01-01-2025 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 Disease Visit Annual PCP Team Chronic Disease Visit [facility] Start: 01-01-2025 Complete blood count Hemoglobin/Renaldo tocrit [facility] Start: 01-01-2025 Covid-19 Vaccine () Covid-19 Vaccine () [facility] Comment on above: Postponed from 09/22 (Declined at this time) Start: 01-01-2025 Creatinine measurement Serum Creatin ine [facility] Start: 01-01-2025 RSV Vaccine (1 - 1-d ose 60+ series) RSV Vaccine (1 - 1-dose 60+ series) [facility] Comment on above: Postponed from 12/13 (Declined at this time) Start: 01-01-2025 RSV Vaccine (1 - 1-d ose 75+ series) RSV Vaccine (1 - 1-dose 75+ series) [facility] Comment on above: Postponed from 12/13 (Declined at this time) Start: 12-18-2024 End: 12-18-2024 Anticoagulant drug monitoring 12/18/2024 1:00 PM EDT Anticoagulation Visit [facility] [address] [place] [address] Wstr, Anticoag [facility] [place] [address] [place], [place] [address] inr [facility] [place] Comment on above: inr Start: 12-11-2024 End: 12-11-2024 Anticoagulant drug monitoring 12/11/2024 1:00 PM EDT Anticoagulation Visit [facility] [place] [address] [place] [address] Wstr, Anticoag [facility] [place] [address] [place], [place] [id number] inr [facility] [place] Comment on above: inr Start: 12-07-2024 DIABETES SCREEN DIABETES SCREEN [facility] Start: 11-27-2024 Covid-19 Vaccine () Covid-19 Vaccine () [facility] Start: 11-27-2024 End: 11-27-2024 Anticoagulant drug monitoring 11/27/2024 1:00 PM EDT Antico[facility] Visit [facility] [address] [place] [address] Wstr, Anticoag [facility] [address] [facility] [place] [address] inr [facility] [place] Comment on above: inr Start: 11-06-2024 End: 11-06-2024 Anticoagulant drug monitoring 11/06/2024 1:00 PM EDT Anticoagulation Visit [facility] [place] [address] [place] [address] Wstr, Anticoag [facility] [place] [address] [facility] [place] [address] inr [facility] [place] Comment on above: inr Start: 10-21-2024 End: 10-21-2024 Anticoagulant drug monitoring 10/21/2024 1:15 PM EDT Anticoagulation Visit [facility] [address] [place] [address] Wstr, Anticoag [facility] [place] [address] [facility] [place] [address] inr [facility] [place] Comment on above: inr Start: 10-14-2024 End: 10-14-2024 Anticoagulant drug monitoring 10/14/2024 12:00 PM EDT Anticoagulation Visit [facility] [address] [place] [address] Wstr, Anticoag [facility] [address] [facility] [place] [address] inr [facility] [place] Comment on above: inr Start: 10-13-2024 End: 10-13-2024 Patient encounter procedure 10/13/2024 12:00 PM EDT Office Visit Neurology [address] [facility] [place] [phone] Shawn Santana MD [address] [facility] [place] [address] 6 month follow up Neurology Comment on above: 6 month follow up Start: 10-09-2024 End: 10-09-2024 Anticoagulant drug monitoring 10/09/2024 1:00 PM EDT Anticoagulation Visit [facility] [place] [address] [place] [address] Wstr, Anticoag [facility] [place] [address] [place] [address] inr [facility] [place] Comment on above: inr Start: 10-02-2024 End: 10-02-2024 Anticoagulant drug monitoring 10/02/2024 1:00 PM EST Anticoagulation Visit [facility] [place] [address] [place] [address] Wstr, [facility] [address] [place] [address] inr [facility] [place] Comment on above: inr Start: 09-18-2024 DIABETES SCREEN DIABETES SCREEN [facility] Start: 09-18-2024 End: 09-18-2024 Anticoagulant drug monitoring 09/18/2024 12:30 PM EST Anticoagulation Visit [facility] [place] [address] [place] [address] Wstr, Anticoag [facility] [address] [place] [address] inr [facility] [place] Comment on above: inr Start: 08-22-2024 End: 08-22-2024 Anticoagulant drug monitoring 08/22/2024 11:45 AM EST Anticoagulation Visit [facility] [place] [address] [place] [address] Wstr, An[facility]ag [facility] [address] [place] [address] inr [facility] [place] Comment on above: inr Start: 08-08-2024 End: 08-08-2024 Anticoagulant drug monitoring 08/08/2024 11:45 AM EST Anticoagulation Visit [facility] [address] [place] [address] [facility] [place] [address] [place] [address] inr [facility] Comment on above: inr Start: 07-30-2024 Advance Directive Discussion Advance Directive Discussion [facility] Start: 07-18-2024 End: 07-18-2024 Anticoagulant drug monitoring 07/18/2024 11:45 AM EST Anticoagulation Visit [facility] [address] [place] [address] Wstr, [facility] [address] [place] [address] inr [facility] [place] Comment on above: inr Start: 07-11-2024 Screening for osteoporosis Bone Density Screening [facility] Start: 07-09-2024 End: 07-09-2024 Patient encounter procedure 07/09/2024 1:40 PM EST Office Visit [facility] [address] [place] [address] Kolby Kim MD [address] [place] [address] 6 month follow up [facility] Comment on above: 6 month follow up Start: 07-09-2024 End: 07-09-2024 Anticoagulant drug monitoring 07/09/2024 1:00 PM EST Anticoagulation Visit [facility] [address] [place] [address] Wstr, [facility] [address] [place] [address] inr [facility] [place] Comment on above: inr Start: 06-27-2024 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 Disease Visit Annual PCP Team Chronic Disease Visit [facility] Start: 06-27-2024 Creatinine measurement Serum Creatin ine [facility] Start: 06-27-2024 Serum Creatinine Serum Creatinine Cl [facility] Start: 06-19-2024 End: 06-19-2024 Anticoagulant drug monitoring 06/19/2024 1:00 PM EST Anticoagulation Visit [facility] [place] [address] [place] [address] Wstr, [facility] [address] [place] [address] inr [facility] [place] Comment on above: inr Start: 06-13-2024 End: 06-13-2024 Patient encounter procedure 06/13/2024 2:40 PM EST Office Visit Family [facility] [address] [place] [address] 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, 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 [address] [place] [address] depression Family [facility] Comment on above: depression Start: 05-15-2024 End: 05-15-2024 Anticoagulant drug monitoring 05/15/2024 1:00 PM EDT Antico[facility] [place] [address] [place] [address] [facility] [address] [place] [address] inr [facility] [place] Comment on above: inr Start: 04-17-2024 End: 04-17-2024 Anticoagulant drug monitoring 04/17/2024 12:15 PM EDT Anticoagulation Visit [facility] [place] [address] [place] [address] Wstr, [facility] [address] [place] [address] inr [facility] [place] Comment on above: inr Start: 04-14-2024 End: 04-14-2024 Patient encounter procedure 04/14/2024 10:30 AM EDT Office Visit Neurology [address] [facility] [place] [phone] Shawn Santana MD [address] [facility] [place] [address] 4 month follow up Neurology Comment on above: 4 month follow up Start: 04-03-2024 End: 04-03-2024 Anticoagulant drug monitoring 04/03/2024 1:00 PM EDT Anticoagulation Visit [facility] [address] [facility], [place] [id number] [facility], [facility] [address] [facility] [place] [address] inr [facility] Comment on above: inr Start: 03-30-2024 Covid-19 Vaccine ( season) Covid-19 Vaccine ( season) [facility] Start: 03-30-2024 Covid-19 Vaccine ( season) Covid-19 Vaccine ( season) [facility] Start: 03-30-2024 Influenza vaccination Influenza Vacc ine (#1) [facility] Start: 03-27-2024 End: 03-27-2024 Anticoagulant drug monitoring 03/27/2024 1:00 PM EDT Anticoagulation Visit [facility] [place] [address] [place] [address] Wstr, [facility] [address] [facility] [place] [address] inr [facility] Comment on above: inr Start: 03-26-2024 ANNUAL PCP TEAM REGRINDER WILLY DISEASE VISIT ANNUAL PCP TEAM CHRONIC DISEASE VISIT [facility] Start: 03-26-2024 COVID-19 VACCINE (5 - Pfizer series) COVID-19 VACCINE (5 - Pfizer series) [facility] Comment on above: Postponed from 10/28 (Declined at this time) Start: 03-26-2024 SHINGRIX VACCINE (1 of 2) HER GRIX VACCINE (1 of 2) [facility] Comment on above: Postponed from 12/13 (Declined at this time) Start: 03-26-2024 Urine microalbumin profile [facility] Comment on above: Postponed from 06/30 (Declined at this time) Start: 03-13-2024 End: 06-12-2024 PT panel - Platelet poor plasma by Coagulation assay PROTHROMBIN TIME Lab Routine Paroxysmal atrial fibrillation (HCC) Expected: 03/13/2024, Expires: 06/12/2024 [facility] Work Phone: Comment on above: Expected: 03/13/2024 , Expires: 06/12/2024 Start: 03-13-2024 End: 03-13-2024 Anticoagulant drug monitoring 03/13/2024 1:30 PM EDT Anticoagulation Visit [facility] [place] [address] [place] [address] Wstr, [facility] [address] [place] [address] inr [facility] [place] Comment on above: inr Start: 02-28-2024 End: 02-28-2024 Anticoagulant drug monitoring 02/28/2024 1:00 PM EDT Anticoagulation Visit [facility] [address] [place] [address] Wstr, [facility] [address] [place] [address] inr [facility] [place] Comment on above: inr Start: 02-27-2024 ANNUAL PCP TEAM REGRINDER WILLY DISEASE VISIT ANNUAL PCP TEAM CHRONIC DISEASE VISIT [facility] Start: 02-27-2024 HEMOGLOBIN/HEMATOCRIT HEMOGLOBIN/HEM ATOCRIT [facility] Start: 02-27-2024 SERUM CREATININE SERUM CREATININE [facility] Start: 01-30-2024 End: 01-30-2024 Anticoagulant drug monitoring 01/30/2024 1:00 PM EDT Anticoagulation [facility] [place] [address] [place] [address] Wstr, [facility] [address] [place] [address] inr [facility] Comment on above: inr Start: 01-02-2024 ANNUAL PCP TEAM REGRINDER WILLY DISEASE VISIT ANNUAL PCP TEAM CHRONIC DISEASE VISIT [facility] Start: 01-02-2024 End: 04-02-2024 Basic metabolic 2000 panel - Serum or Plasma [facility] Work Phone: Comment on above: Expected: 01/02/2024 , Expires: 04/02/2024 Start: 01-02-2024 End: 04-02-2024 Hemoglobin A1c in Blood [facility] Comment on above: Expected: 01/02/2024 , Expires: 04/02/2024 Start: 01-02-2024 End: 04-02-2024 Microalbumin/Creatinine [Mass Ratio] in Urine [facility] Comment on above: Expected: 01/02/2024 , Expires: 04/02/2024 Start: 01-02-2024 End: 04-02-2024 Thyrotropin [Units/volume] in Serum or Plasma [facility] Comment on above: Expected: 01/02/2024 , Expires: 04/02/2024 Start: 01-02-2024 End: 01-02-2024 Patient encounter procedure 01/02/2024 1:40 PM EDT Office Visit [facility] [address] [place] [address] Kolby Kim MD [address] [place] [address] 6 Month Follow up [facility] Comment on above: 6 Month Follow up Start: 01-02-2024 End: 01-02-2024 Anticoagulant drug monitoring 01/02/2024 1:00 PM EDT Anticoagulation Visit [facility] [address] [place] [address] Wstr, [facility] [address] [place] [address] inr [facility] [place] Comment on above: inr Start: 2023 End: 2023 Anticoagulant drug monitoring 2023 1:00 PM EDT Anticoagulation [facility] [place] [address] [place] [address] Wstr, Antico[facility] [address] [place] [address] inr [facility] [place] Comment on above: inr Start: 12-05-2023 ANNUAL PCP TEAM REGRINDER WILLY DISEASE VISIT ANNUAL PCP TEAM CHRONIC DISEASE VISIT [facility] Start: 12-03-2023 End: 12-03-2023 Patient encounter procedure 12/03/2023 10:30 AM EDT Office Visit Neurology [address] [facility] [place] [place] [id number] Shawn Santana MD [address] [facility] [place] [address] 6 month follow up Neurology Comment on above: 6 month follow up Start: 11-07-2023 ANNUAL PCP TEAM REGRINDER WILLY DISEASE VISIT ANNUAL PCP TEAM CHRONIC DISEASE VISIT [facility] Start: 11-07-2023 SERUM CREATININE SERUM CREATININE [facility] Start: 10-27-2023 ANNUAL PCP TEAM REGRINDER WILLY DISEASE VISIT ANNUAL PCP TEAM CHRONIC DISEASE VISIT [facility] Start: 10-27-2023 SERUM CREATININE SERUM CREATININE [facility] Start: 09-30-2023 ANNUAL PCP TEAM REGRINDER WILLY DISEASE VISIT ANNUAL PCP TEAM CHRONIC DISEASE VISIT [facility] Start: 09-30-2023 SERUM CREATININE SERUM CREATININE [facility] Start: 09-22-2023 Covid-19 Vaccine ( season) Covid-19 Vaccine () [facility] Start: 08-29-2023 End: 10-29-2023 Hemoglobin A1c in Blood HGB A1C Lab Routine Hyperglycemia Expected: 08/29/2023, Expires: 10/29/2023 [facility] Work Phone: Comment on above: Expected: 08/29/2023 , Expires: 10/29/2023 Start: 07-30-2023 Advance Directive Discussion Advance Directive Discussion [facility] Start: 07-27-2023 ANNUAL PCP TEAM REGRINDER WILLY DISEASE VISIT ANNUAL PCP TEAM CHRONIC DISEASE VISIT [facility] Start: 07-08-2023 HEMOGLOBIN/HEMATOCRIT HEMOGLOBIN/HEM ATOCRIT [facility] Start: 07-08-2023 SERUM CREATININE SERUM CREATININE Cl [facility] Start: 07-06-2023 ANNUAL PCP TEAM REGRINDER WILLY DISEASE VISIT ANNUAL PCP TEAM CHRONIC DISEASE VISIT [facility] Start: 06-29-2023 End: 09-28-2023 CBC W Auto Differential panel - Blood CBC + DIFF Lab Routine Paroxysmal atrial fibrillation (HCC) Expected: 06/29/2023, Expires: 09/28/2023 [facility] Work Phone: Comment on above: Expected: 06/29/2023 , Expires: 09/28/2023 Start: 06-27-2023 End: 09-26-2023 25-hydroxyvitamin D3 [Mass/volume] in Serum or Plasma [facility] Work Phone: Comment on above: Expected: 06/27/2023 , Expires: 09/26/2023 Start: 06-27-2023 End: 09-26-2023 CBC W Auto Differential panel - Blood CBC + DIFF Lab Routine Iron deficiency Expected: 06/27/2023, Expires: 09/26/2023 [facility] Work Phone: Comment on above: Expected: 06/27/2023 , Expires: 09/26/2023 Start: 06-27-2023 End: 09-26-2023 Comprehensive metabolic 2000 panel - Serum or Plasma [facility] Work Phone: Comment on above: Expected: 06/27/2023 , Expires: 09/26/2023 Start: 06-27-2023 End: 09-26-2023 Hemoglobin A1c in Blood [facility] Work Phone: Comment on above: Expected: 06/27/2023 , Expires: 09/26/2023 Start: 06-27-2023 End: 09-26-2023 LIPID PANEL, NONFASTING [facility] Work Phone: Comment on above: Expected: 06/27/2023 , Expires: 09/26/2023 Start: 06-27-2023 End: 09-26-2023 Thyrotropin [Units/volume] in Serum or Plasma [facility] Work Phone: Comment on above: Expected: 06/27/2023 , Expires: 09/26/2023 Start: 04-11-2023 [facility] Start: 03-30-2023 Covid-19 Vaccine () Covid-19 Vaccine () [facility] Start: 03-30-2023 Influenza vaccination [facility] Start: 03-21-2023 ANNUAL PCP TEAM REGRINDER WILLY DISEASE VISIT ANNUAL PCP TEAM CHRONIC DISEASE VISIT [facility] Start: 03-08-2023 [facility] Start: 02-20-2023 ANNUAL PCP TEAM REGRINDER WILLY DISEASE VISIT ANNUAL PCP TEAM CHRONIC DISEASE VISIT [facility] Start: 02-08-2023 BP CONTROLLED (<130/80) BP CONTROLLE D (<130/80) [facility] Start: 02-05-2023 Evaluation of diagno stic study results [facility] Start: 01-24-2023 Patient referral [facility] Work Phone: Start: 12-07-2022 ANNUAL PCP TEAM REGRINDER WILLY DISEASE VISIT ANNUAL PCP TEAM CHRONIC DISEASE VISIT [facility] Start: 12-07-2022 HEMOGLOBIN/HEMATOCRIT HEMOGLOBIN/HEM ATOCRIT [facility] Start: 12-07-2022 SERUM CREATININE SERUM CREATININE Cl [facility] Start: 11-13-2022 [facility] Start: 11-07-2022 End: 01-07-2023 CBC W Auto Differential panel - Blood CBC + DIFF Lab Routine Leukocytosis, unspecified type Expected: 11/07/2022, Expires: 01/07/2023 [facility] Work Phone: Comment on above: Expected: 11/07/2022 , Expires: 01/07/2023 Start: 11-06-2022 End: 01-06-2023 Basic metabolic 2000 panel - Serum or Plasma [facility] Work Phone: Comment on above: Expected: 11/06/2022 , Expires: 01/06/2023 Start: 11-06-2022 End: 01-06-2023 CBC W Auto Differential panel - Blood [facility] Work Phone: Comment on above: Expected: 11/06/2022 , Expires: 01/06/2023 Start: 11-06-2022 End: 01-06-2023 Thyrotropin [Units/volume] in Serum or Plasma [facility] Work Phone: Comment on above: Expected: 11/06/2022 , Expires: 01/06/2023 Start: 11-03-2022 Patient discharge [facility] Start: 11-03-2022 Physiotherapy of chest [facility] Start: 11-02-2022 Patient referral [facility] Work Phone: Start: 11-02-2022 Prothrombin time [facility] Start: 11-02-2022 Thyroid stimulating hormone measurement [facility] Start: 11-02-2022 [facility] Start: 11-02-2022 Following clinical pathway protocol [facility] Start: 11-02-2022 Assessment of risk o f venous thromboembolism [facility] Start: 11-02-2022 Incentive spirometry [facility] Start: 11-02-2022 Inhalation therapy procedure [facility] Start: 11-02-2022 Insertion of cathete r into peripheral vein [facility] Start: 11-02-2022 Measuring intake and output [facility] Start: 11-02-2022 Oxygen therapy [facility] Start: 11-02-2022 Providing care accor ding to standard [facility] Start: 11-02-2022 Provision of activit y privileges [facility] Start: 11-02-2022 Referral to knitter helper [facility] Start: 11-02-2022 Referral to service [facility] Start: 11-02-2022 Respiratory therapy [facility] Start: 11-02-2022 Tobacco use cessatio n education [facility] Start: 11-02-2022 [facility] Start: 11-02-2022 Patient referral to dietitian [facility] Start: 11-01-2022 Verification routine [facility] Start: 11-01-2022 Admission procedure [facility] Start: 10-30-2022 Blood chemistry [facility] Start: 10-30-2022 Prothrombin time [facility] Start: 10-29-2022 Blood chemistry [facility] Start: 10-29-2022 Prothrombin time [facility] Start: 10-28-2022 COVID-19 VACCINE (5 - Pfizer series) COVID-19 VACCINE (5 - Pfizer series) [facility] Start: 10-28-2022 Blood chemistry [facility] Start: 10-28-2022 Prothrombin time [facility] Start: 10-27-2022 Blood chemistry [facility] Start: 10-27-2022 Prothrombin time [facility] Start: 10-26-2022 End: 12-26-2022 Basic metabolic 2000 panel - Serum or Plasma [facility] Work Phone: Comment on above: Expected: 10/26/2022 , Expires: 12/26/2022 Start: 10-26-2022 Blood chemistry [facility] Start: 10-26-2022 Prothrombin time [facility] Start: 10-25-2022 Blood chemistry [facility] Start: 10-25-2022 Prothrombin time [facility] Start: 10-24-2022 Blood chemistry [facility] Start: 10-24-2022 Prothrombin time [facility] Start: 10-23-2022 Patient discharge [facility] Start: 10-23-2022 Consultation [facility] Start: 10-23-2022 [facility] Start: 10-22-2022 [facility] Start: 10-21-2022 Inhalation therapy procedure [facility] Start: 10-20-2022 Assessment of risk o f venous thromboembolism [facility] Start: 10-20-2022 Fall prevention [facility] Start: 10-20-2022 Insertion of cathete r into peripheral vein [facility] Start: 10-20-2022 Introduction of urin sky catheter [facility] Start: 10-20-2022 Measuring intake and output [facility] Start: 10-20-2022 Oxygen therapy [facility] Start: 10-20-2022 Patient referral to dietitian [facility] Start: 10-20-2022 Providing care accor ding to standard [facility] Start: 10-20-2022 Provision of activit y privileges [facility] Start: 10-20-2022 Referral to occupati onal therapist [facility] Start: 10-20-2022 Referral to service [facility] Start: 10-20-2022 [facility] Start: 10-20-2022 Following clinical pathway protocol [facility] Start: 10-20-2022 Viral nucleic acid assay [facility] Start: 10-20-2022 End: 10-20-2022 [facility] Start: 10-20-2022 Admission procedure [facility] Start: 10-20-2022 Patient referral to dietitian [facility] Start: 10-19-2022 ANNUAL PCP TEAM REGRINDER WILLY DISEASE VISIT ANNUAL PCP TEAM CHRONIC DISEASE VISIT [facility] Start: 10-12-2022 End: 12-12-2022 PT panel - Platelet poor plasma by Coagulation assay PROTHROMBIN TIME/PT Lab STAT Paroxysmal atrial fibrillation (HCC) Expected: 10/12/2022, Expires: 12/12/2022 [facility] Work Phone: Comment on above: Expected: 10/12/2022 , Expires: 12/12/2022 Start: 09-18-2022 HEMOGLOBIN/HEMATOCRIT HEMOGLOBIN/HEM ATOCRIT [facility] Start: 09-18-2022 SERUM CREATININE SERUM CREATININE Cl [facility] Start: 09-16-2022 SHINGRIX VACCINE (1 of 2) HER GRIX VACCINE (1 of 2) [facility] Comment on above: Postponed from 12/13 (Insurance Coverage) Start: 09-16-2022 Urine microalbumin profile DTAP,TDAP,TD (1 - Tdap) [facility] Comment on above: Postponed from 06/30 (Insurance Coverage) Start: 09-03-2022 End: 09-03-2022 [facility] Start: 08-07-2022 [facility] Start: 07-30-2022 ADVANCE DIRECTIVE DISCUSSION ADVANCE DIRECTIVE DISCUSSION [facility] Start: 05-24-2022 [facility] Start: 03-30-2022 Influenza vaccination INFLUENZA (#1) [facility] Start: 02-27-2022 End: 04-29-2022 PT panel - Platelet poor plasma by Coagulation assay PROTHROMBIN TIME/PT Lab Routine Paroxysmal atrial fibrillation (HCC) Expected: 02/27/2022, Expires: 04/29/2022 [facility] Work Phone: Comment on above: Expected: 02/27/2022 , Expires: 04/29/2022 Start: 01-19-2022 Oxygen therapy [facility] Work Phone: Start: 01-19-2022 [facility] Work Phone: Start: 12-28-2021 Taking nasal swab [facility] Work Phone: Start: 12-28-2021 [facility] Work Phone: Start: 12-28-2021 Bacteria identified in Urine by Culture Urine Culture [facility] Work Phone: Start: 12-07-2021 End: 02-06-2022 Basic metabolic 2000 panel - Serum or Plasma [facility] Work Phone: Comment on above: Expected: 12/07/2021 , Expires: 02/06/2022 Start: 12-07-2021 End: 02-06-2022 CBC W Auto Differential panel - Blood [facility] Work Phone: Comment on above: Expected: 12/07/2021 , Expires: 02/06/2022 Start: 12-07-2021 End: 02-06-2022 Natriuretic peptide.B prohormone N-Terminal [Mass/volume] in Serum or Plasma [facility] Work Phone: Comment on above: Expected: 12/07/2021 , Expires: 02/06/2022 Start: 10-06-2021 COVID-19 VACCINE (4 - Booster for Pfizer series) COVID-19 VACCINE (4 - Booster for Pfizer series) [facility] Start: 08-03-2021 COVID-19 VACCINE (4 - Booster for Pfizer series) COVID-19 VACCINE (4 - Booster for Pfizer series) [facility] Start: 07-30-2021 ADVANCE DIRECTIVE DISCUSSION ADVANCE DIRECTIVE DISCUSSION [facility] Start: 12-14-2019 RSV Vaccine (1 - 1-d ose 75+ series) RSV Vaccine (1 - 1-dose 75+ series) [facility] Start: 09-10-2017 End: 09-10-2017 Appointment Appointment [facility] Work Phone: Start: 02-09-2017 End: 02-09-2017 Appointment Appointment [facility] Work Phone: Start: 02-09-2017 End: 02-09-2017 Appointment Appointment [facility] Work Phone: Start: 02-09-2017 End: 02-09-2017 Echocardiography Echocardiogram (complete) [facility] Work Phone: Start: 02-09-2017 End: 02-09-2017 Follow Up Appt 6 months Follow Up Appt 6 months [facility] Work Phone: Start: 02-09-2017 End: 02-09-2017 PFM PFM [facility] Work Phone: Start: 12-26-2016 End: 12-26-2016 *BMP *BMP [facility] Work Phone: Start: 08-10-2016 End: 08-10-2016 Follow Up Appt 6 months Follow Up Appt 6 months [facility] Work Phone: Start: 08-10-2016 End: 08-10-2016 MMM MMM [facility] Work Phone: Start: 05-13-2016 End: 01-27-2016 Ct thorax w/dye CT Chest with Contrast [facility] Work Phone: Start: 05-12-2016 End: 05-12-2016 *Creatinine, Serum *Creatinine, Serum [facility] Work Phone: Start: 01-11-2016 End: 02-01-2017 *Hepatic Function Panel *Hepatic Function Panel [facility] Work Phone: Start: 01-11-2016 End: 02-01-2017 Lipid panel [AGGREGATE] *Lipid Profile CC PCP [facility] Work Phone: Start: 07-14-2015 End: 07-29-2015 *BMP *BMP [facility] Work Phone: Start: 07-14-2015 End: 07-14-2015 Follow Up Appt 6 months Follow Up Appt 6 months [facility] Work Phone: Start: 07-14-2015 End: 07-14-2015 MMM MMM [facility] Work Phone: Start: 07-05-2015 End: 07-12-2015 *Hepatic Function Panel *Hepatic Function Panel [facility] Work Phone: Start: 07-05-2015 End: 07-12-2015 Lipid panel [AGGREGATE] *Lipid Profile CC PCP [facility] Work Phone: Start: 01-12-2015 End: 01-18-2015 *BMP *BMP [facility] Work Phone: Start: 01-12-2015 End: 01-18-2015 *CBC with Differential *CBC with Differential [facility] Work Phone: Start: 01-12-2015 End: 01-12-2015 Echocardiography Echocardiogram (complete) [facility] Work Phone: Start: 01-12-2015 End: 01-12-2015 Follow Up Appt 6 months Follow Up Appt 6 months [facility] Work Phone: Start: 01-12-2015 End: 01-18-2015 Magnesium *Magnesium [facility] Work Phone: Start: 01-12-2015 End: 01-12-2015 PFM PFM [facility] Work Phone: Start: 01-12-2015 End: 01-18-2015 Thyroid stimulating hormone (TSH) *TSH [facility] Work Phone: Start: 01-12-2015 End: 01-18-2015 Thyroxine (T4) *T4 (Total) [facility] Work Phone: Start: 12-28-2014 End: 01-01-2015 *Hepatic Function Panel *Hepatic Function Panel [facility] Work Phone: Start: 12-28-2014 End: 01-01-2015 Lipid panel [AGGREGATE] *Lipid Profile CC PCP [facility] Work Phone: Start: 07-15-2014 End: 07-31-2014 Ct thorax w/dye CT Chest with Contrast [facility] Work Phone: Start: 07-15-2014 End: 07-31-2014 Follow Up Appt 6 months Follow Up Appt 6 months [facility] Work Phone: Start: 07-15-2014 End: 07-31-2014 MMM MMM [facility] Work Phone: Start: 07-14-2014 End: 07-14-2014 *Hepatic Function Panel *Hepatic Function Panel [facility] Work Phone: Start: 04-27-2014 End: 07-13-2014 Lipid panel [AGGREGATE] *Lipid Profile CC PCP [facility] Work Phone: Start: 03-16-2014 End: 01-12-2015 Follow Up Appt Other Follow Up Appt Other [facility] Work Phone: Start: 02-27-2014 End: 09-27-2013 *Hepatic Function Panel *Hepatic Function Panel [facility] Work Phone: Start: 02-27-2014 End: 01-01-2015 Lipid panel [AGGREGATE] *Lipid Profile CC PCP [facility] Work Phone: Start: 12-11-2013 End: 12-11-2013 Follow Up Appt 3 months Follow Up Appt 3 months [facility] Work Phone: Start: 12-11-2013 End: 12-11-2013 MMM MMM [facility] Work Phone: Start: 11-21-2013 End: 11-21-2013 Cardiac Rehab Cardiac Rehab [facility] Work Phone: Start: 11-21-2013 End: 11-21-2013 Cardiovascular stress test using treadmill Treadmill stress test (no imaging) [facility] Work Phone: Start: 11-21-2013 End: 11-21-2013 Follow Up Appt Other Follow Up Appt Other [facility] Work Phone: Start: 10-30-2013 End: 10-30-2013 *CBC with Differential *CBC with Differential [facility] Work Phone: Start: 10-30-2013 End: 10-30-2013 Electrocardiogram, complete EKG (In office) [facility] Work Phone: Start: 10-30-2013 End: 11-18-2013 Follow up Appt 3 weeks Follow up Appt 3 weeks [facility] Work Phone: Start: 10-30-2013 End: 10-30-2013 Follow Up Appt 6 weeks Follow Up Appt 6 weeks [facility] Work Phone: Start: 10-30-2013 End: 11-18-2013 MMM MMM [facility] Work Phone: Start: 10-30-2013 End: 10-30-2013 PFM PFM [facility] Work Phone: Start: 10-02-2013 End: 10-02-2013 *BMP *BMP [facility] Work Phone: Start: 09-22-2013 End: 09-26-2013 *BMP *BMP [facility] Work Phone: Start: 09-18-2013 End: 01-12-2015 Follow Up Appt Other Follow Up Appt Other [facility] Work Phone: Start: 09-18-2013 End: 11-18-2013 PFM PFM [facility] Work Phone: Start: 08-30-2013 End: 09-11-2013 *Hepatic Function Panel *Hepatic Function Panel [facility] Work Phone: Start: 08-30-2013 End: 09-11-2013 Lipid panel [AGGREGATE] *Lipid Profile CC PCP [facility] Work Phone: Start: 08-25-2013 End: 08-25-2013 Follow Up Appt Other Follow Up Appt Other [facility] Work Phone: Start: 06-18-2013 End: 06-18-2013 Follow Up Appt 6 months Follow Up Appt 6 months [facility] Work Phone: Start: 06-18-2013 End: 06-18-2013 MMM MMM [facility] Work Phone: Start: 06-11-2013 End: 02-01-2017 Chest x-ray X-Ray, Chest, PA & Lateral [facility] Work Phone: Start: 03-28-2013 End: 04-01-2013 24 hour holter monitor 24 hour holter monitor [facility] Work Phone: Start: 02-11-2013 End: 02-11-2013 Follow Up Appt Other Follow Up Appt Other [facility] Work Phone: Start: 01-27-2013 End: 03-21-2013 *Hepatic Function Panel *Hepatic Function Panel [facility] Work Phone: Start: 01-27-2013 End: 03-21-2013 Lipid panel [AGGREGATE] *Lipid Profile [facility] Work Phone: Start: 12-31-2012 End: 12-31-2012 Follow Up Appt Other Follow Up Appt Other [facility] Work Phone: Start: 11-28-2012 End: 12-31-2012 Follow up Appt 3 weeks Follow up Appt 3 weeks [facility] Work Phone: Start: 11-28-2012 End: 11-28-2012 Follow Up Appt 6 months Follow Up Appt 6 months [facility] Work Phone: Start: 11-28-2012 End: 12-31-2012 MMM MMM [facility] Work Phone: Start: 11-28-2012 End: 11-28-2012 PFM PFM [facility] Work Phone: Start: 09-05-2012 End: 02-01-2017 Urine culture, bacteria *C&S, Routine Bacteria [facility] Work Phone: Start: 08-26-2012 End: 11-18-2012 Chest x-ray X-Ray, Chest, PA & Lateral [facility] Work Phone: Start: 08-26-2012 End: 08-30-2012 Ct thorax w/dye CT Chest with Contrast [facility] Work Phone: Start: 08-26-2012 End: 08-30-2012 Echocardiography Echocardiogram (complete) [facility] Work Phone: Start: 08-26-2012 End: 08-26-2012 Follow Up Appt 6 months Follow Up Appt 6 months [facility] Work Phone: Start: 08-26-2012 End: 08-26-2012 PFM PFM [facility] Work Phone: Start: 08-15-2012 End: 02-01-2017 *CBC with Differential *CBC with Differential [facility] Work Phone: Start: 08-15-2012 End: 02-01-2017 *CMP Complete Metabolic Panel *CMP Complete Metabolic Panel [facility] Work Phone: Start: 08-15-2012 End: 01-01-2015 Lipid panel [AGGREGATE] *Lipid Profile [facility] Work Phone: Start: 08-15-2012 End: 02-01-2017 Rheumatoid factor, quant *Rheumatoid Factor (quantitative) [facility] Work Phone: Start: 08-01-2012 End: 02-01-2017 Neisseria gonorrhoeae [Presence] in Unspecified specimen by Organism specific culture *Wound Culture and Sensitivity [facility] Work Phone: Start: 07-30-2012 End: 08-21-2012 *Hepatic Function Panel *Hepatic Function Panel [facility] Work Phone: Start: 07-30-2012 End: 08-21-2012 Lipid panel [AGGREGATE] *Lipid Profile [facility] Work Phone: Start: 07-10-2012 End: 02-01-2017 Urine culture, bacteria *C&S, Routine Bacteria [facility] Work Phone: Start: 02-15-2012 End: 02-19-2012 *Hepatic Function Panel *Hepatic Function Panel [facility] Work Phone: Start: 02-15-2012 End: 02-15-2012 Ct thorax w/dye CT Chest with Contrast [facility] Work Phone: Start: 02-15-2012 End: 02-15-2012 Follow Up Appt 6 months Follow Up Appt 6 months [facility] Work Phone: Start: 02-15-2012 End: 02-19-2012 Lipid panel [AGGREGATE] *Lipid Profile [facility] Work Phone: Start: 10-05-2011 End: 08-21-2012 *Hepatic Function Panel *Hepatic Function Panel [facility] Work Phone: Start: 10-05-2011 End: 10-05-2011 Echocardiography Echocardiogram (complete) [facility] Work Phone: Start: 10-05-2011 End: 10-05-2011 Follow Up Appt 6 months Follow Up Appt 6 months [facility] Work Phone: Start: 10-05-2011 End: 08-21-2012 Lipid panel [AGGREGATE] *Lipid Profile [facility] Work Phone: Start: 06-30-2011 Urine microalbumin profile [facility] Start: 11-27-2009 Medicare Annual Well ness Visit Medicare Annual Wellness Visit [facility] Start: 2004 RSV Vaccine (1 - 1-d ose 60+ series) RSV Vaccine (1 - 1-dose 60+ series) [facility] Start: 1994 SHINGRIX VACCINE (1 of 2) HER GRIX VACCINE (1 of 2) [facility] Start: 1962 BP CONTROLLED (<130/80) BP CONTROLLE D (<130/80) [facility] Alanine aminotransfe rase [Enzymatic activity/volume] in Serum or Plasma [facility] Albumin [Mass/volume ] in Serum or Plasma [facility] Alkaline phosphatase [Enzymatic activity/volume] in Serum or Plasma [facility] Anion gap measurement [facility] Aspartate aminotransferase [Enzymatic activity/volume] in Serum or Plasma [facility] Bilirubin, total measurement [facility] BUN/Creatinine ratio [facility] Calcium [Mass/volume ] in Serum or Plasma [facility] Carbon dioxide, tota l [Moles/volume] in Serum or Plasma [facility] Chloride [Moles/volu me] in Serum or Plasma [facility] Creatinine [Moles/vo lume] in Serum or Plasma [facility] End: 10-30-2023 CT CHEST W IVCON CT CHEST W IVCON Radiology Routine Interstitial pulmonary disease (HCC) 1 Occurrences starting 10/04/2022 until 10/30/2023 [facility] Work Phone: Comment on above: 1 Occurrences starti ng 10/04/2022 until 10/30/2023 End: 10-14-2023 Ct lumbar spine w/o contrast material CT LUMBAR SPINE WO IVCON Radiology Routine Radiculopathy of lumbar region Spinal stenosis of lumbar region with neurogenic claudication 1 Occurrences starting 09/14/2022 until 10/14/2023 [facility] Work Phone: Comment on above: 1 Occurrences starti ng 09/14/2022 until 10/14/2023 ECG COMPLETE ECG COMPLETE ECG Routine Chest pain, unspecified type 01/02/2024 1:21 PM EDT [facility] Glucose [Mass/volume ] in Serum or Plasma [facility] Hematocrit [Volume Fraction] of Blood [facility] Hemoglobin [Mass/vol ume] in Blood [facility] Influenza virus A an d B RNA and SARS-CoV-2 (COVID-19) N gene panel - Respiratory specimen by DELFINA with probe detection COVID WITH FLUA+B, ROUTINE Microbiology Routine Chronic obstructive pulmonary disease, unspecified COPD type (HCC) Cough, unspecified type Acute cough Ordered: 02/20/2022 [facility] Work Phone: Comment on above: Ordered: 02/20/2022 INR in Blood by Coagulation assay [facility] End: 01-24-2024 INR in Platelet poor plasma by Coagulation assay INR (POC) Lab Routine History of heart valve replacement Once per month for 99 Occurrences starting 01/23/2023 until 01/24/2024 [facility] Work Phone: Comment on above: Once per month for 9 9 Occurrences starting 01/23/2023 until 01/24/2024 End: 01-29-2025 INR in Platelet poor plasma by Coagulation assay INR (POC) Lab Routine History of heart valve replacement Once per month for 99 Occurrences starting 01/30/2024 until 01/29/2025 [facility] Work Phone: Comment on above: Once per month for 9 9 Occurrences starting 01/30/2024 until 01/29/2025 End: 01-29-2026 INR in Platelet poor plasma by Coagulation assay INR (POC) Lab Routine History of heart valve replacement Once per month for 99 Occurrences starting 01/30/2025 until 01/29/2026 [facility] Work Phone: Comment on above: Once per month for 9 9 Occurrences starting 01/30/2025 until 01/29/2026 Leukocytes [#/volume ] in Blood [facility] Magnesium [Mass/volu me] in Serum or Plasma [facility] End: 08-09-2023 BABAK SCREENING W CHETNA BABAK SCREENING W CHETNA Radiology Routine Encounter for screening mammogram for malignant neoplasm of breast 1 Occurrences starting 07/10/2022 until 08/09/2023 [facility] Work Phone: Comment on above: 1 Occurrences starti ng 07/10/2022 until 08/09/2023 Mean corpuscular hemoglobin concentration determination [facility] Mean corpuscular hemoglobin determination [facility] Measurement of renal function [facility] Neutrophil count [facility] Neutrophil percent differential count [facility] Patient Education [facility] Work Phone: Patient referral [facility] Work Phone: Platelets [#/volume] in Blood [facility] Potassium [Moles/vol ume] in Serum or Plasma [facility] End: 01-23-2024 PT panel - Platelet poor plasma by Coagulation assay PROTHROMBIN TIME/PT Lab STAT History of heart valve replacement Once per month for 99 Occurrences starting 01/23/2023 until 01/23/2024 [facility] Work Phone: Comment on above: Once per month for 9 9 Occurrences starting 01/23/2023 until 01/23/2024 End: 01-29-2025 PT panel - Platelet poor plasma by Coagulation assay PROTHROMBIN TIME Lab STAT History of heart valve replacement Once per month for 99 Occurrences starting 01/30/2024 until 01/29/2025 [facility] Comment on above: Once per month for 9 9 Occurrences starting 01/30/2024 until 01/29/2025 End: 01-29-2026 PT panel - Platelet poor plasma by Coagulation assay PROTHROMBIN TIME Lab STAT History of heart valve replacement Once per month for 99 Occurrences starting 01/30/2025 until 01/29/2026 [facility] Comment on above: Once per month for 9 9 Occurrences starting 01/30/2025 until 01/29/2026 End: 10-14-2023 Radex spine lumbscrl compl w/bending views min 6 XR LUMBAR SPNE COMP 6V AP/LAT/BOTH OBL/FLEX/EXT (AK) Radiology Routine Compression fracture of lumbar spine, non-traumatic, sequela 1 Occurrences starting 09/14/2022 until 10/14/2023 [facility] Work Phone: Comment on above: 1 Occurrences starti ng 09/14/2022 until 10/14/2023 End: 10-14-2023 Radex spine thoracic 3 views XR THORACIC GENERAL 3V AP/LAT/SWIMMERS Radiology Routine Compression fracture of thoracic vertebra, unspecified thoracic vertebral level, sequela 1 Occurrences starting 09/14/2022 until 10/14/2023 [facility] Work Phone: Comment on above: 1 Occurrences starti ng 09/14/2022 until 10/14/2023 End: 03-27-2024 Radiologic exam esophagus single contrast study XR ESOPHAGRAM Radiology Routine Dysphagia, unspecified type 1 Occurrences starting 02/26/2023 until 03/27/2024 [facility] Work Phone: Comment on above: 1 Occurrences starti ng 02/26/2023 until 03/27/2024 Red blood cell count [facility] Red cell distributio n width determination [facility] Respiratory Panel (PCR) Respiratory Panel (PCR) [facility] Respiratory pathogen s DNA and RNA 12b panel - Unspecified specimen by DELFINA with probe detection [facility] SARS-CoV-2 (COVID-19 ) Ag [Presence] in Respiratory specimen by Rapid immunoassay [facility] Sodium [Moles/volume ] in Serum or Plasma [facility] Total protein measurement [facility] Urea nitrogen [Mass/volume] in Serum or Plasma [facility] End: 06-27-2024 US CAROTID ARTERIES [facility] CAROTID [facility]ER[facility] Vascular Lab Routine Bilateral carotid artery stenosis 1 Occurrences starting 06/27/2023 until 06/27/2024 [facility] Work Phone: Comment on above: 1 Occurrences starti ng 06/27/2023 until 06/27/2024 End: 11-25-2023 US KIDNEY/BLADDER US KIDNEY/BLADDER Radiology Routine Renal cyst 1 Occurrences starting 10/26/2022 until 11/25/2023 [facility] Work Phone: Comment on above: 1 Occurrences starti ng 10/26/2022 until 11/25/2023 End: 01-31-2025 XR Chest PA and Lateral XR CHEST 2V FRONTAL/LAT Radiology Routine Chest pain, unspecified type 1 Occurrences starting 01/02/2024 until 01/31/2025 [facility] Comment on above: 1 Occurrences starti ng 01/02/2024 until 01/31/2025 XR Chest PA and Lateral XR CHEST 2V FRONTAL/LAT Radiology Routine Chest pain, unspecified type 01/02/2024 3:30 PM EDT [facility] End: 02-05-2025 XR Chest PA and Lateral XR CHEST 2V FRONTAL/LAT Radiology Routine Pleural effusion 1 Occurrences starting 01/07/2024 until 02/05/2025 [facility] Work Phone: Comment on above: 1 Occurrences starti ng 01/07/2024 until 02/05/2025 [facility] Immunizations Immunization Date Immunization Notes Care Provider Fa cili 05-30-2024 COVID-19 original vaccine, full dose, monovalent (MODERNA) Kolby Kim MD Work Phone: [facility] 05-30-2024 COVID-19 vaccine, unspecified formulation Anticoag Wstr Work Phone: [facility] 05-30-2024 influenza (HD-IIV4) vaccine, age 65+ yr, high dose, quadrivalent, PF (FLUZONE HIGH-DOSE) Kolby Kim MD Work Phone: [facility] 05-30-2024 influenza virus vaccine, unspecified formulation Anticoag Wstr Work Phone: [facility] 05-22-2023 COVID-19 vaccine, ag e 12+ yr, season (MODERNA) Kolby Kim MD Work Phone: [facility] 05-22-2023 influenza (aIIV4) vaccine, age 65+ yr, quadrivalent, PF (FLUAD QUAD) Kolby Kim MD Work Phone: [facility] 05-22-2023 influenza (HD-IIV4) vaccine, age 65+ yr, high dose, quadrivalent, PF (FLUZONE HIGH-DOSE) Kolby Kim MD Work Phone: [facility] 05-22-2023 influenza virus vaccine, unspecified formulation Kolby Kim MD Work Phone: [facility] 06-29-2022 COVID-19 booster vaccine, age 12+ yr, bivalent (PFIZER-BIONTECH) Mi Nurse Work Phone: [facility] Work Phone: 05-20-2022 influenza, high-dose , quadrivalent vaccine (FLUZONE HIGH DOSE QUADRIVALENT) Immunization [place] Work Phone: [facility] 05-20-2022 influenza virus vaccine, unspecified formulation Kolby Kim MD Work Phone: [facility] 05-04-2021 influenza, high-dose , quadrivalent vaccine (FLUZONE HIGH DOSE QUADRIVALENT) Kolby Kim MD Work Phone: [facility] 10-15-2020 COVID-19 vaccine, ag e 12+ yr (PFIZER-BIONTECH - PURPLE TOP) Kolby Kim MD Work Phone: [facility] 09-24-2020 COVID-19 vaccine, ag e 12+ yr (PFIZER-BIONTECH - PURPLE TOP) Kolby Kim MD Work Phone: [facility] Work Phone: 05-31-[address] Kolby Kim Work Phone: [facility] 05-31-2020 influenza, seasonal, injectable Kolby Kim MD Work Phone: [facility] 04-26-2020 influenza, high-dose , quadrivalent vaccine (FLUZONE HIGH DOSE QUADRIVALENT) Kolby Kim MD Work Phone: [facility] 04-30-2019 influenza, high dose seasonal, preservative-free Kolby Kim MD Work Phone: [facility] 04-29-2018 Fluad 2017- 65yr up(PF)45 mcg(15 mcgx3)/0.5 mL intramuscular syringe (flu vac Dr. Kolby Kim Work Phone: [facility] Work Phone: 05-02-2017 influenza, high dose seasonal, preservative-free Kolby Kim MD Work Phone: [facility] 04-17-2017 influenza, injectabl e, quadrivalent, contains preservative Kolby Kim MD Work Phone: [facility] 04-17-2017 influenza, injectabl e, quadrivalent, preservative free Dr. Kolby Kim Work Phone: [facility] 04-17-2017 influenza, seasonal, injectable Kolby Kim MD Work Phone: [facility] 04-26-2016 influenza, high dose seasonal, preservative-free Kolby Kim MD Work Phone: [facility] 05-20-2015 influenza, high dose seasonal, preservative-free Kolby Kim MD Work Phone: [facility] 10-14-2014 pneumococcal conjuga te vaccine, 13 valent Kolby Kim MD Work Phone: [facility] 04-30-2014 influenza, seasonal, injectable Kolby Kim MD Work Phone: [facility] 04-29-[address] Kolby Kim Work Phone: [facility] 04-29-2014 influenza, seasonal, injectable Kolby Kim MD Work Phone: [facility] 10-12-2013 pneumococcal polysaccharide vaccine, 23 valent Kolby Kim MD Work Phone: [facility] 05-15-[address] Kolby Kim Work Phone: [facility] 05-15-2013 influenza, seasonal, injectable Kolby Kim MD Work Phone: [facility] 05-10-2013 influenza virus vaccine, unspecified formulation Kolby Kim MD Work Phone: [facility] 05-14-2012 influenza virus vaccine, unspecified formulation Kolby Kim MD Work Phone: [facility] 06-29-2011 tetanus and diphther ia toxoids, adsorbed, preservative free, for adult use (2 Lf of tetanus toxoid and 2 Lf of diphtheria toxoid) Kolby Kim MD Work Phone: [facility] 10-28-2005 pneumococcal polysaccharide vaccine, 23 valent Kolby Kim MD Work Phone: [facility] 10-28-[address] Jesus Kim Work Phone: [facility] Work Phone: 10-28-2005 pneumococcal vaccine , unspecified formulation Dr. Kolby Kim Work Phone: [facility] 10-29-2003 pneumococcal polysaccharide vaccine, 23 valent Kolby Kim MD Work Phone: [facility] Payers Date Payer Category Payer Miscellaneous or Other HOSPICE G [facility]ERIC [id number] 03-25-2024 Self-pay [id number] 07-30-2015 Private Health Insurance HUMANA HUMANA MEDICARE SUPPLEMENT [id number] 07/30/2015-Present [phone] [address] [address] [place] [address] Indemnity [id number] 07-30-2015 Private Health Insurance [id number] 07-30-2015 Private Health Insurance [id number] 11-27-2009 Medicare MEDICARE MEDICAR E A AND B [id number] 11/27/2009-Present [phone] [place] [address] Medicare [id number] 11-27-2009 Medicare [id number] 11-27-2009 Medicare [id number] Unknown [id number] Unknown [id number] Unknown [id number] Unknown [id number] Unknown [id number] Unknown [id number] Unknown [id number] Unknown [id number] Unknown [id number] Unknown [id number] Unknown [id number] Unknown [id number] Unknown [id number] Social History Date Type Detail Facility Start: 11-06-2011 End: 03-21-2022 Tobacco smoking status TXIS Never smoked tobacco [facility] Start: 10-19-2021 End: 04-13-2025 Alcohol intake Current non-drinker of alcohol (finding) [facility] Start: 09-15-2021 End: 11-29-2022 History SDOH Alcohol Frequency 1 [facility] Start: 09-15-2021 End: 11-29-2022 History SDOH Alcohol Std Drinks 98 [facility] Start: 09-15-2021 End: 11-29-2022 History SDOH Social Connections Phone 3 [facility] Start: 09-15-2021 End: 11-29-2022 History SDOH Social Connections Membership 2 [facility] Start: 09-15-2021 End: 11-29-2022 History SDOH Physical Activity DPW 0 [facility] Start: 09-15-2021 End: 11-29-2022 History SDOH Stress 4 [facility] Start: 09-15-2021 End: 11-29-2022 History SDOH Financial 5 [facility] Start: 06-16-2020 Education 12 [facility] Start: 1945 Sex Assigned At Female [facility] Work Phone: Start: 05-22-2020 End: 06-02-2022 Exposure to SARS-CoV-2 (event) Not sure [facility] Start: 12-28-2021 End: 04-11-2023 Tobacco smoking status NHIS Unknown if ever smoked [facility] Start: 10-09-2020 None [facility] Start: 10-09-2020 Spouse/ Significant Other [facility] Start: 11-20-2020 Non-smoker [facility] Start: 11-06-2011 End: 03-21-2022 Tobacco use and exposure Smokeless tobacco non-user [facility] Start: 03-21-2022 Tobacco Comment Father smoked in childhood home. Spouse non-smoker. [facility] Start: 11-29-2022 End: 01-01-2024 History of Social function [facility] Start: 11-29-2022 End: 01-01-2024 Social connection and isolation panel [facility] Start: 06-30-2012 How often do you get together with friends or relatives? Patient refused [facility] Are you now , , , , never or living with a partner? [facility] How often to you hav e a drink containing alcohol? Never [facility] Do you feel stress - tense, restless, nervous, or anxious, or unable to sleep at night because your mind is troubled all the time - these days [OSQ] Very much [facility] (I/We) worried wheth er (my/our) food would run out before (I/we) got money to buy more. Never true [facility] In the past 12 month s, was there a time when you were not able to pay the mortgage or rent on time? No [facility] Start: 07-05-2017 Gender identity Identifies as female gender (finding) [facility] Work Phone: Start: 07-05-2017 Sexual orientation Heterosexual (finding) [facility] Work Phone: Do you feel stress - tense, restless, nervous, or anxious, or unable to sleep at night because your mind is troubled all the time - these days [OSQ] Rather much [facility] Do you feel stress - tense, restless, nervous, or anxious, or unable to sleep at night because your mind is troubled all the time - these days [OSQ] Only a little [facility] Do you belong to any clubs or organizations such as denominational groups, unions, fraternal or athletic groups, or school groups? Yes [facility] Do you feel stress - tense, restless, nervous, or anxious, or unable to sleep at night because your mind is troubled all the time - these days [OSQ] To some extent [facility] Medical Equipment Procedure Code Equipment Code Equipment Original Text Equipment Identifier Dates [place] Cv 4x.5in Thk1.65mm Ptfe - [id number] Start: 10-07-2013 Comment on above: Description: PTFE Fe lt - pledgets Valve Aort 21mm Onx Hrt - [id number] Start: 10-07-2013 Comment on above: Description: Prosthe tic Heart Valve - Aortic Goals Date Patient Goal Desired Activity /State Personal health goal Comment on above: Formatting of this n ote might be different from the original. Avoid hospitalizations. Personal health goal Comment on above: Formatting of this n ote might be different from the original. Patient has the following Congestive Heart Failure Goals: Two PCP Visits annually, Two Cardiology Visits annually, and Medication review by PCP or Pharmacy once a year CHF Education given and reviewed with patient --sent on 01/05/23 Heart Failure Zones and CHF [facility] education provided - Heart Failure [facility] Patient will meet these goals by 07/29/2023 (describe interventions done by PCC) Formatting of this n ote might be different from the original. Patient has the following Chronic Obstructive Pulmonary Disease goals: Two PCP visits annually and Pulmonology visit annually Education provided and reviewed with patient - sent on 01/05/23 COPD Action Plan/Zones and COPD [facility] Education - COPD About Patient will meet these goals by 07/29/2023 (describe interventions done by PCC) Formatting of this n ote might be different from the original. Patient has the following Chronic Kidney Disease goals: Two PCP visits annually, Nephrology visit annually, and Renal panel twice annually Education provided and reviewed with patient - sent on 01/05/23 CKD Zones, Renal Diet Basics, Controlling Potassium, and CKD [facility] Education - CKD (ALL) Patient will meet these goals by: 07/29/2023 (describe interventions done by PCC) Personal health goal Comment on above: Formatting of this n ote might be different from the original. Patient goal: no falls Patient plan: use of walker with ambulation, rise slowly, accept assistance as needed Time frame: ongoing Formatting of this n ote might be different from the original. Patient goal: no falls Patient plan: use of walker with ambulation, rise slowly, accept assistance as needed Time frame: ongoing 11/20/2023- patient had a fall last week. Spouse partially saw the fall. Does not think that patient struck head. Has bruising. Patient states that she does not use her walker, encouraged to use walker. Comment on above: Formatting of this n ote might be different from the original. Comment on above: Formatting of this n ote might be different from the original. Stay out of the hospital Comment on above: Formatting of this n ote might be different from the original. Avoid hospitalizations. Comment on above: Formatting of this n ote might be different from the original. Patient has the following Congestive Heart Failure Goals: Two PCP Visits annually, Two Cardiology Visits annually, and Medication review by PCP or Pharmacy once a year CHF Education given and reviewed with patient --sent on 01/05/23 Heart Failure Zones and CHF [facility] education provided - Heart Failure [facility] Patient will meet these goals by 07/29/2023 (describe interventions done by PCC) Comment on above: Formatting of this n ote might be different from the original. Patient has the following Chronic Obstructive Pulmonary Disease goals: Two PCP visits annually and Pulmonology visit annually Education provided and reviewed with patient - sent on 01/05/23 COPD Action Plan/Zones and COPD ROMELIA Education - COPD About Patient will meet these goals by 07/29/2023 (describe interventions done by P[facility]) Comment on above: Formatting of this n ote might be different from the original. Patient has the following Chronic Kidney Disease goals: Two PCP visits annually, Nephrology visit annually, and Renal panel twice annually Education provided and reviewed with patient - sent on 01/05/23 CKD Zones, Renal Diet Basics, Controlling Potassium, and CKD ROMELIA Education - CKD (ALL) Patient will meet these goals by: 07/29/2023 (describe interventions done by P[facility]) Functional Status Date Assessment Result Facility 11-03-2022 Functional status [facility] Work Phone: 10-23-2022 Functional status Ambulates;Bath room Privilege [facility] Work Phone: 02-28-2015 Are you deaf, or do you have serious difficulty hearing No 02/28/2015 10:20 AM EDT Rebecca Chamberlain MA No [facility] 02-28-2015 Are you blind, or do you have serious difficulty seeing, even when wearing glasses No 02/28/2015 10:20 AM EDT Rebecca Chamberlain MA No [facility] 02-28-2015 Do you have serious difficulty walking or climbing stairs No 02/28/2015 10:20 AM EDT Rebecca Chamberlain MA No [facility] 02-28-2015 Do you have difficul ty dressing or bathing No 02/28/2015 10:20 AM EDT Rebecca Chamberlain MA No [facility] 02-28-2015 Because of a physica l, mental, or emotional condition, do you have difficulty doing errands alone such as visiting a physician's office or shopping No 02/28/2015 10:20 AM Rebecca Thomas MA No [facility] Mental Status Date Assessment Result Facility 11-13-2022 Cognitive function Awake;Alert;A ppropriate;Fol lows Commands [facility] Work Phone: 11-03-2022 Cognitive function Voice/Name [facility] Work Phone: 11-01-2022 Cognitive function Voice/Name [facility] Work Phone: 10-23-2022 Cognitive function Demonstrates ability to follow instructions/comprehend [facility] Work Phone: 10-23-2022 Cognitive function Awake;Alert [facility] Work Phone: 10-22-2022 Cognitive function Voice/Name [facility] Work Phone: 05-24-2022 Cognitive function Level Of Cons ciousness Awake;Alert;Appropriate;Fol lows Commands [facility] Work Phone: 01-19-2022 Cognitive function Voice/Name [facility] Work Phone: 10-03-2021 Cognitive function Level Of Cons ciousness Awake;Alert;Appropriate;Fol lows Commands [facility] Work Phone: 02-28-2015 Because of a physica l, mental, or emotional condition, do you have serious difficulty concentrating, remembering, or making decisions No 02/28/2015 10:20 AM EDT Rebecca Chamberlain MA No [facility] Clinical Notes 09-27-2013 to 04-14-2025 Kolby Kim MD - 04/14/2025 1:41 PM EDTGTia salinas RN - 04/14/2025 1:33 PM EDTPatient InstructionsShawn Santana MD - 04/13/2025 11:20 AM EDTPatient InstructionsPatient Instructions Note Date & Type Note Facility 04-14-2025 History of Present illness Narrative agree patient had inr completed at [facility] patients inr is 2.5 (patients inr range is 2.5-3.5) patient is currently taking 2mg daily patients last dose change was on 03/23/25 due to a high level of 5.6 (dose at that time was 2mg Wed and 2.5mg all other days) patient has had no changes in medication and no missed doses and no change in diet Advised patient to continue on the same dose(s) and that they would only be contacted regarding dosage and follow up instructions after review with provider, if a change is needed. Written instructions given and patient verbalized understanding. Presently scheduled in 3 weeks (05/07/25) for follow up INR. documented in this encounter [facility] 04-13-2025 Instructions Shawn Santana MD - 04/13/2025 11:42 AM EDT Try increasing the rivastigmine to twice a day. Watch out for diarrhea, decreased appetite, nightmares, or heart rate changes. Let me know when you need a refill. Continue supportive care. documented in this encounter [facility] 04-13-2025 History of Present illness Narrative FOLLOW UP NOTE Subjective Elza Chu is a 79 year old female who presents for follow up. Here with her . 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 Her examination demonstrates mild parkinsonism and signs of right lumbar radiculopathy. Agree with diagnosis of Lewy Body Dementia. Explained patients with this can have parkinsonism but that treatment may worsen hallucinations. Her parkinsonism is mild enough that I wouldn't recommend treating it at this time. Encouraged physical activity. Rivastigmine patch may help with hallucinations as well as for cognition, they will watch closely with previous side effects to donepezil. The RLE symptoms which are contributing to her gait likely due to lumbar radiculopathy. She had injections for this in the past. Would not suggest surgical evaluation, but could do physical therapy or see spine medicine specialist for injections / other treatments. 11/2022 try to get patch again. 11/2023 resume donepezil titrate to 5 mg. 03/2024 on donepezil 2.5 helping mildly, encouraged increasing to 5 mg. 09/2024 c/f donepezil side effects, try rivastigmine instead. HPI Current Issues - Taking rivastigmine 1.5 mg daily - Still has delusions / hallucinations, she notes sees [place] - notes continued CAPGRAS delusion - He notes thinks she is in stage 6 - Episode recently where he came home from shopping and the doors were all open, she thought their animals got out - Still on hospice checking on her once a week - She says her appetite is OK, drinks lots of fluids - Some abdominal discomfort going to be trying Gas-x Current Outpatient Medications Medication Sig Dispense Refill warfarin (COUMADIN) 1 mg tablet take up to 2 tablets daily as directed pending lab results 60 tablet 5 warfarin (COUMADIN) 2.5 mg tablet 2.5 mg daily or as directed 90 tablet 3 warfarin (COUMADIN) 3 mg tablet 3 mg on Sunday, , & Sunday, 2 mg all other days or as directed 90 tablet 3 rivastigmine tartrate (EXELON) 1.5 mg capsule Take 1 capsule by mouth two times a day. 60 capsule 5 potassium chloride ER (KLOR-CON) 20 mEq tablet Take 1 tablet by mouth once daily. [address] (PROTONIX) 40 mg tablet Take 1 tablet by mouth two times a day. 180 tablet 3 furosemide (LASIX) 40 mg tablet Take 1 tablet by mouth once daily. 90 tablet 1 PARoxetine (PAXIL) 30 mg tablet Take 1 tablet by mouth once daily. 90 tablet 3 montelukast (SINGULAIR) 10 mg tablet Take 1 tablet by mouth daily at bedtime. 90 tablet 3 metoprolol succinate ER (TOPROL XL) 100 mg Take 1 tablet by mouth once daily. 90 tablet 1 buPROPion XL (WELLBUTRIN XL) 150 mg 24 hr tablet Take 1 tablet by mouth once daily. 90 tablet 3 loratadine (CLARITIN) 10 mg tablet Take 10 mg by mouth once daily. Ipratropium [place] (ATROVENT) 21 mcg (0.03 %) nasal spray diazePAM (VALIUM) 2 mg tablet Take by mouth twice daily. Take 1 tablet in the AM and 1/2-1 tablet in the evening. albuterol (PROVENTIL) 2.5 mg /3 mL (0.083 %) nebulizer solution Use 3 mL via nebulizer every 6 hours as needed for wheezing/shortness of breath. DX: J45.40 Hx of moderate persistent Asthma 360 mL 3 nitroglycerin sublingual (NITROQUICK) 0.4 mg SL tablet amLODIPine (NORVASC) 2.5 mg tablet Take 1 tablet by mouth once daily. amiodarone (PACERONE) 200 mg tablet Take 100 mg by mouth once daily. albuterol HFA (PROAIR HFA) 90 mcg/actuation inhaler Inhale 2 Puffs as instructed every 4 hours as needed. 3 Inhaler 0 acetaminophen (TYLENOL EXTRA STRENGTH) 500 mg tablet Take 1 tablet by mouth every 4 hours as needed for Pain. RANGE FREQ? 0 Nebulizer NEBULIZER FOR HOME USE and necessary supplies. DX: Hypoxemia, Pneumonia and Hemoptisis 1 Each 0 pravastatin (PRAVACHOL) 80 mg tablet TAKE 1 TABLET BY MOUTH ONCE DAILY 90 tablet 3 aspirin 81 mg chewable tablet Take 2 tablets by mouth once daily. (Patient taking differently: Take 81 mg by mouth once daily.) 0 ezetimibe(ZETIA 10 MG TAB) Take one(1) tablet daily. 0 No current facility-administered medications for this visit. REVIEW OF SYSTEMS Her ROS was positive for that mentioned in the HPI. Otherwise a 10-point ROS was completed and was negative. Objective OBJECTIVE 04/13/25 1123 BP: 95/60 BP Site: Left Arm BP Position: Sitting BP Cuff Size: Small Adult Pulse: 101 SpO2: 90% General: General Appearance: On oxygen Head: Normocephalic Neck: Supple Heart: RRR Neurologic Exam: Mental Status: She is alert. Disoriented to time. Attention impaired to months backwards. Recall of her history is impaired. Affect is restricted. Cranial Nerves: Extraocular movements show full and smooth pursuits. No nystagmus. Visual godwin are full to confrontation. Facial activation is symmetric. Hearing is intact to conversation. There is mild hypomimia. There is mild hypophonia. There is no dysarthria. Tongue is midline. Palate elevates symmetrically. Shoulder shrug is normal. Motor: Muscle bulk is normal. Mild RLE weakness. Mild R>LUE bradykinesia. Minimal rigidity. Subtle right hand tremor. Coordination: Finger to nose is smooth without ataxia. Gait/station: In wheelchair today DATA REVIEW Actual films/image/tracing reviewed and summarized as follows: n/a Old records reviewed and summarized as follows: CT L-spine 09/19/22 multilevel degenerative changes comparable to prior exam CT L-spine 09/18/21 severe degenerative changes / compression deformities. Reviewed referral records from Dr. Sanchez and prior neuro records from Dr. Monreal Assessment/Plan ASSESSMENT & PLAN: Elza Chu is a 79 year old right-handed female with a history of Lewy Body Dementia, mechanical AVR on coumadin, and depression amongst other conditions who presents for follow up of parkinsonism in LBD. Her examination demonstrates cognitive impairment and parkinsonism. 1. LBD - Still hallucinating - Encouraged taking rivastigmine BID, offered to increase or change to donepezil for single day dosing, would prefer to stay at 1.5 mg and try to take BID - If hallucinations or agitation problematic can try low dose quetiapine or Nuplazid, would be to be cautious with neuroleptic sensitivity in LBD - Continue supportive care Follow-up: 6 months Risks & Side Effects of Newly Prescribed Medication, Discussed with Patient: YES Shawn Santana MD [facility] Neurology documented in this encounter [facility] 04-02-2025 Telephone encounter Note Both prescriptions filled [facility] 04-02-2025 Miscellaneous Notes Both prescriptions filled Patient sent message requesting to parminder Bullock MA documented in this encounter [facility] 04-01-2025 Telephone encounter Note Patient sent message requesting to parminder Bullock MA [facility] 04-01-2025 History of Present illness Narrative Noted. Agree w/ recommendations. Millie Olmedo APRN.CNP patient had inr completed at [facility] patients inr is 2.1 (patients inr range is 2.5-3.5) patient is currently taking 2mg daily times 2 dose only patients last dose change was on 03/26/25 due to a high level of 5.6 (dose at that time was 2mg Wed and 2.5mg all other days) patient has had no changes in medication except for coumadin and no uninstructed missed doses and no change in diet FYI - machine showed C which could mean patient hgt is low, patient and spouse decline lab test for hgt at this time due to this could be to breaking of cells due to having to milk the finger to get the finger stick blood sample and due to she is a hard lab draw. Advised patient to continue on the same dose(s) and that they would only be contacted regarding dosage and follow up instructions after review with provider, if a change is needed. Written instructions given and patient verbalized understanding. Presently scheduled in 2 weeks (04/14/25) for follow up INR since level is just slightly under but also held for 3 days and patient is very sensitive to dose changes at this time documented in this encounter [facility] 03-31-2025 Telephone encounter Note Scanned Cardiology fax that they are in agreement with changes. Keily Mcpherson MA March 31, 2025 4:43 PM [facility] 03-31-2025 Miscellaneous Notes Scanned Cardiology fax that they are in agreement with changes. Keily Mcpherson MA March 31, 2025 4:43 PM documented in this encounter [facility] 03-26-2025 History of Present illness Narrative Agree with anticosachin's recommendation. patient had inr completed at [facility] patients inr is 5.6 (patients inr range is 2.5-3.5) patient is currently taking 2mg Wed and 2.5mg all other days patients last dose change was on 03/19/25 due to a high level of 4.1 (dose at that time was 2.5mg daily) patient has had no changes in medication except for coumadin and no uninstructed missed doses and no change in diet FYI - machine showed C which could mean patient hgt is low, patient and spouse decline lab test for hgt at this time due to this could be to breaking of cells due to having to milk the finger to get the finger stick blood sample and due to she is a hard lab draw. recommend: patient hold coumadin until Sunday and on Sunday start 2mg daily and recheck in 5 days (no soon check due to spouse is unable to get patient here for soon check due to other medical appointments patient has been scheduled for a 5 day receheck on 04/01/25 please review and advise on recommendation patient only needs called if provider does not agree with recommendation documented in this encounter [facility] 03-24-2025 History of Present illness Narrative Value Based Care Coordination Chart Review Provider Action / FYI: Upon review of patient chart, the patient is excluded from Chronic Disease Management Patient is not a candidate for CDM at this time and placed in the following status: Deferred Action taken: No action needed . Talia Batista RN March 24, 2025 9:02 AM documented in this encounter [facility] 03-19-2025 History of Present illness Narrative Agree with anticoag recommendation patient had inr completed at [facility] patients inr is 4.1 (patients inr range is 2.5-3.5) patient is currently taking 2.5mg daily patients last dose change was on 02/10/25 due to a high level of 3.6 (dose at that time was 2mg Mon,Wed,Fri and 3mg all other days) patient has had no change in medication and no missed doses and no change in diet recommend: patient hold coumadin today and then go to 2mg Wed and 2.5mg all other days and recheck in 1 week patient has been scheduled for a 1 week follow up inr on 03/26/25 please review and advise on recommendation patient only needs called if provider does not agree with recommendation documented in this encounter [facility] 03-16-2025 Telephone encounter Note Prescription Refill Information The patient has been identified by name and date of : Yes Caregiver verified no other encounters exist for this prescription request: Yes Caregiver confirmed with patient/requestor that no other refills are due, in the near future, with this provider at this time: Yes The last office visit in the department: 01/12/25 Does the patient have a future office visit with this provider/department: Yes, 07/27/25 Requested Prescriptions Pending Prescriptions Disp Refills warfarin (COUMADIN) 2.5 mg tablet 90 tablet 3 Si.5 mg daily or as directed Jeet Morgan LPN March 16, 2025 11:25 AM [facility] 03-16-2025 Miscellaneous Notes Prescription Refill Information The patient has been identified by name and date of : Yes Caregiver verified no other encounters exist for this prescription request: Yes Caregiver confirmed with patient/requestor that no other refills are due, in the near future, with this provider at this time: Yes The last office visit in the department: 01/12/25 Does the patient have a future office visit with this provider/department: Yes, 07/27/25 Requested Prescriptions Pending Prescriptions Disp Refills warfarin (COUMADIN) 2.5 mg tablet 90 tablet 3 Si.5 mg daily or as directed Jeet Morgan LPN March 16, 2025 11:25 AM documented in this encounter [facility] 02-26-2025 History of Present illness Narrative agree patient had inr completed at [facility] patients inr is 2.6 (patients inr range is 2.5-3.5) patient is currently taking 2.5mg daily patients last dose change was on 02/10/25 due to a high level of 3.6 (dose at that time was 2mg Mon,Wed,Fri and 3mg all other days) patient has had no changes in medication and no missed doses and no change in diet Advised patient to continue on the same dose(s) and that they would only be contacted regarding dosage and follow up instructions after review with provider, if a change is needed. Written instructions given and patient verbalized understanding. Presently scheduled in 3 weeks (03/19/25) for follow up INR. documented in this encounter [facility] 02-10-2025 History of Present illness Narrative agree patient had inr completed at [facility] patients inr is 3.6 (patients inr range is 2.5-3.5) patient is currently taking 2mg Mon,Wed,Fri and 3mg all other days patients last dose change was on 01/29/25 due to a low level of 1.8 (dose at that time was 3mg Tue,Thurs,Sat and 2mg all other days) patient has had no changes in medication except for coumadin and no missed doses and no change in diet recommend: patient change coumadin to 2.5mg daily and recheck in 2 weeks (cc clinic is closed at the 1 week dandre) patient has been scheduled for a 2 week follow up inr on 02/26/25 please review and advise on recommendation patient only needs called if provider does not agree with recommendation documented in this encounter [facility] 01-29-2025 History of Present illness Narrative Agree with anticoag recommendation patient had inr completed at [facility] patients inr is 1.8 (patients inr range is 2.5-3.5) patient is currently taking 3mg Tues,Thurs,Sat and 2mg all other days patients last dose change was on 01/15/25 due to a low level of 1.6 (dose at that time was 3mg Tue,Thurs and 2mg all other days) patient has had no changes in medication except for coumadin and no missed doses and no change in diet recommend: patient change coumadin to 2mg Mon,Wed,Fri 3mg all other daysand and recheck in 2 weeks patient has been scheduled for a 2 week follow up inr on 02/10/25 please review and advise on recommendation patient only needs called if provider does not agree with recommendation documented in this encounter [facility] 01-29-2025 Telephone encounter Note patients orders for coumadin clinic inr's has at this time. new order has been pended for approval if possible so that patient can continue to get inr's completed thru the coumadin clinic. coumadin clinic nurse only needs called if order can not be approved. [facility] 01-29-2025 Miscellaneous Notes patients orders for coumadin clinic inr's has at this time. new order has been pended for approval if possible so that patient can continue to get inr's completed thru the coumadin clinic. coumadin clinic nurse only needs called if order can not be approved. documented in this encounter [facility] 01-16-2025 Telephone encounter Note The patient has been identified by name and date of : Yes Caregiver verified no other encounters exist for this prescription request: Yes Caregiver confirmed with patient/requestor that no other refills are due, in the near future, with this provider at this time: Yes The last office visit in the department: 01/12/2025 Does the patient have a future office visit with this provider/department: Yes 07/27/2025 Requested Prescriptions Pending Prescriptions Disp Refills warfarin (COUMADIN) 3 mg tablet 90 tablet 3 Si mg on Sunday, , & Sunday, 2 mg all other days or as directed Jas Burgos RN January 16, 2025 9:43 AM [facility] 01-16-2025 Miscellaneous Notes The patient has been identified by name and date of : Yes Caregiver verified no other encounters exist for this prescription request: Yes Caregiver confirmed with patient/requestor that no other refills are due, in the near future, with this provider at this time: Yes The last office visit in the department: 01/12/2025 Does the patient have a future office visit with this provider/department: Yes 07/27/2025 Requested Prescriptions Pending Prescriptions Disp Refills warfarin (COUMADIN) 3 mg tablet 90 tablet 3 Si mg on Sunday, , & Sunday, 2 mg all other days or as directed Jas Burgos RN January 16, 2025 9:43 AM documented in this encounter [facility] 01-15-2025 History of Present illness Narrative agree patient had inr completed at [facility] patients inr is 1.6 (patients inr range is 2.5-3.5) patient is currently taking 3mg Tues,Thurs and 2mg all other days patients last dose change was on 01/06/25 due to a low level of 0.3 (dose at that time was 2mg daily) patient has had no changes in medication except for coumadin and no missed doses and no change in diet recommend: patient change coumadin to 3mg Tues Thurs Sat and 2mg all other days and recheck in 2 weeks patient has been scheduled for a 2 week follow up inr on 01/29/25 please review and advise on recommendation patient only needs called if provider does not agree with recommendation documented in this encounter [facility] 01-12-2025 History of Present illness Narrative Olya Chu is an 79-year-old female with a history of mechanical heart valve, seen today for a check-up. HPI Mechanical Heart Valve: - INR dropped from 6.7 to 1.1 recently. - No recent dietary changes reported. - Next INR check scheduled for . - No new bleeding or bruising issues; Olya reports usual bruising with minor contact. - Continues to see neurology, cardiology, and pulmonary specialists. - Denies chest pain, swelling, or skin breakdown. - Denies issues with urination or bowel movements. - Reports soreness in the abdomen when pressed. - Denies prolonged chest pain; describes occasional quick jabs, likely muscular. - Denies recent visual disturbances. - Appetite is reportedly good. - Hospice care visits once a week on Fridays. - Recent respite care at [facility]; previous experience at [place] was unsatisfactory. - Received RSV vaccine at [facility] [place]; regularly receives flu and COVID shots. - Continues to wear oxygen. - Reports feeling more stressed and experiencing dyspnea when upset. - Sleeping well at night. MEDICATIONS: Current Outpatient Medications Medication Sig rivastigmine tartrate (EXELON) 1.5 mg capsule Take 1 capsule by mouth two times a day. (Patient taking differently: Take 1.5 mg by mouth once daily.) potassium chloride ER (KLOR-CON) 20 mEq tablet Take 1 tablet by mouth once daily. pantoprazole DR (PROTONIX) 40 mg tablet Take 1 tablet by mouth two times a day. furosemide (LASIX) 40 mg tablet Take 1 tablet by mouth once daily. metoprolol succinate ER (TOPROL XL) 100 mg Take 1 tablet by mouth once daily. buPROPion XL (WELLBUTRIN XL) 150 mg 24 hr tablet Take 1 tablet by mouth once daily. diazePAM (VALIUM) 2 mg tablet Take by mouth twice daily. Take 1 tablet in the AM and 1/2-1 tablet in the evening. albuterol (PROVENTIL) 2.5 mg /3 mL (0.083 %) nebulizer solution Use 3 mL via nebulizer every 6 hours as needed for wheezing/shortness of breath. DX: J45.40 Hx of moderate persistent Asthma amLODIPine (NORVASC) 2.5 mg tablet Take 1 tablet by mouth once daily. amiodarone (PACERONE) 200 mg tablet Take 100 mg by mouth once daily. albuterol HFA (PROAIR HFA) 90 mcg/actuation inhaler Inhale 2 Puffs as instructed every 4 hours as needed. pravastatin (PRAVACHOL) 80 mg tablet TAKE 1 TABLET BY MOUTH ONCE DAILY aspirin 81 mg chewable tablet Take 2 tablets by mouth once daily. ezetimibe(ZETIA 10 MG TAB) Take one(1) tablet daily. rivastigmine (EXELON) 4.6 mg/24 hour patch Apply 1 Patch as directed once daily. warfarin (COUMADIN) 1 mg tablet take 1 tablet daily or as directed pending lab results PARoxetine (PAXIL) 30 mg tablet Take 1 tablet by mouth once daily. warfarin (COUMADIN) 3 mg tablet 2.5 mg MW and 4.5 mg all other days or as directed montelukast (SINGULAIR) 10 mg tablet Take 1 tablet by mouth daily at bedtime. loratadine (CLARITIN) 10 mg tablet Take 10 mg by mouth once daily. Ipratropium [place] (ATROVENT) 21 mcg (0.03 %) nasal spray warfarin (COUMADIN) 2.5 mg tablet 2.5 mg daily or as directed nitroglycerin sublingual (NITROQUICK) 0.4 mg SL tablet acetaminophen (TYLENOL EXTRA STRENGTH) 500 mg tablet Take 1 tablet by mouth every 4 hours as needed for Pain. RANGE FREQ? Nebulizer NEBULIZER FOR HOME USE and necessary supplies. DX: Hypoxemia, Pneumonia and Hemoptisis No current facility-administered medications for this visit. ALLERGIES: ALLERGIES Allergen Reactions Adhesive Rash Blistering at site of application. Dextromethorphan Other: See Comments, Mental Status Change Risperidone Other: See Comments Sulfa (Sulfonamide * Other: See Comments Renal dysfunction. Childhood reaction. Generalized swelling Celebrex [Celecoxib] Intolerance Migraine headache. Aricept [Donepezil] Myalgia muscle pain and difficulty walking Compazine [Prochlor* Other: See Comments low BP Crestor [Rosuvastat* GI Upset Gabapentin Intolerance Confusion, when coupled with norco Lipitor [Atorvastat* Myalgia Lisinopril Cough Oxycodone Itching Penicillins Other: See Comments Heart palpitations. No rash or itch. Can take cephalosporins Prozac [Fluoxetine * Other: See Comments hallucinating Ultram [Tramadol Hc* Itching Codeine Itching PAST MEDICAL HISTORY Diagnosis Date Adjustment disorder with depressed mood Aortic valve disorder Dr. Mckay Carotid stenosis Compression deformity of vertebra Congestive heart failure (HCC) COPD (chronic obstructive pulmonary disease) (HCC) 01/03/2013 Esophageal reflux Normal EGD 12/2012 H/O aortic valve replacement INR should be 2.5 to 3.5 High blood pressure Hyperlipidemia Impaired glucose tolerance Intrinsic asthma 06/[address] done per Dr. Mckay Migraine Myalgia and myositis, unspecified Other forms of migraine Parkinsonism (HCC) Thyroid nodule Unspecified essential hypertension PAST SURGICAL HISTORY Procedure Laterality Date ANTERIOR COLPORRAPHY RPR CYSTOCELE W/CYSTO 2001 w/ uterosacral suspension CARDIOVERSION [facility]- Spring 2019 CLOSURE SEMILUNAR VALVE AORTIC/PULM SUTURE/PATCH 2004 had aortic valve replacement w/ bovine valve COLONOSCOPY 05/08/2017 COLONOSCOPY FLX DX W/COLLJ SPEC WHEN PFRMD 01/15/2013 Colonoscopy COLSC FLX W/RMVL OF TUMOR POLYP LESION SNARE TQ 05/07/2017 Colonoscopy - cecal inflammatory polyps. Repeat in 5 yrs DISPLACEMENT THERAPY PROETZ TYPE x3 ESOPHAGOGASTRODUODENOSCOPY TRANSORAL DIAGNOSTIC 01/15/2013 EGD ESOPHAGOGASTRODUODENOSCOPY TRANSORAL DIAGNOSTIC 05/07/2017 EGD FOOT RIGHT OP SURGERY 05/05/2009 HEMORRHOIDECTOMY XTRNL 2/> COLUMN/GROUP LAPS VAGINAL HYSTERECTOMY UTERUS 250 GM/< 2002/2001 usvvs, enterocele repair,apr,lsc pvdr,cysto,spt LOW BACK DISK SURGERY 06/2011 OOPHORECTOMY PARTIAL/TOTAL UNI/BI PAST SURGICAL HISTORY OF 04/2012 Thyroid [id number] PAST SURGICAL HISTORY OF aug and september 2011 cataract removal PAST SURGICAL HISTORY OF 2013 aortic valve with On-X valve PERCUTANEOUS AORTIC VALVE REPLACEMENT 09/2013 POSTERIOR COLPORRHAPHY, REPAIR RECTOCELE 2001 SINUS SURGERY PROC UNLISTED [address] Styles ([place]), [address] Wood, 1 in [place] TONSILLECTOMY PRIMARY/SECONDARY <AGE 11 TOTAL ABDOMINAL HYSTERECT W/WO RMVL TUBE OVARY age 31 FAMILY HISTORY Problem Relation Age of Onset Heart Mother Heart Father Diabetes Sister Lipids Sister Diabetes Brother Hypertension Brother Lipids Brother Lipids Daughter other (Depression) Daughter GI Son Lipids Son Colon Cancer No Family History Social History Tobacco Use Smoking status: Never Smokeless tobacco: Never Tobacco comments: Father smoked in childhood home. Spouse non-smoker. Vaping Use Vaping status: Never Used Substance Use Topics Alcohol use: No Drug use: No Reviewed current medications, allergies, past medical history, surgical history, family history and social history today. REVIEW OF SYSTEMS Constitutional: (-) decreased appetite, (-) insomnia Cardiovascular: (-) chest pain Respiratory: (+) dyspnea with stress Gastrointestinal: (+) abdominal tenderness, (-) bowel problems Genitourinary: (-) urinary problems Musculoskeletal: (-) swelling Skin: (+) easy bruising, (-) skin ulcer Psychiatric: (-) visual hallucinations HEALTH MAINTENANCE: Reviewed health maintenance issues today and recommended the following in detail. Medicare Annual Wellness Visit Never done Advance Directive Discussion due on 07/30/2024 LAB REVIEWED: Labs: - INR: 1.1 - INR: 6.7 VITALS: BP 94/58 Pulse 100 Wt 49.4 kg (109 lb) SpO2 95% BMI 21.29 kg/m Last 4 Encounter Wt Readings: Date: Wt: 01/12/2025 49.4 kg (109 lb) 07/09/2024 51.6 kg (113 lb 12.1 oz) 04/14/2024 0 kg () 01/02/2024 49.4 kg (109 lb) PHYSICAL EXAMINATION: GENERAL: NAD, alert and oriented. SKIN: Unremarkable, no rash or skin lesions. Bruising noted. NECK: Supple, no lymphadenopathy, normal thyroid, no carotid bruits. LUNGS: Clear to auscultation bilaterally, no wheezes/rhonchi/rales. HEART: Regular rate and rhythm, no murmurs. Mechanical valve click noted. No ectopy. EXTREMITIES: Normal, no deformities, no skin discoloration, no edema. ABDOMEN: Soft, mild tenderness on palpation, no rebound tenderness. Bowel sounds normal. NEURO: Awake, alert and oriented x3, cranial nerves II-XII grossly intact, normal gait, no involuntary motions. ASSESSMENT AND PLAN 1. Lewy body dementia with psychotic disturbance, unspecified dementia severity ([facility]) (G31.83) 2. 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 - No recent hallucinations reported. - Continue current management; follow-up in 6 months. 3. Parkinsonism, unspecified Parkinsonism type ([facility]) (G20.C) - Continue current management. 4. Hyperlipidemia LDL goal <100 (E78.5) - Continue current management. 5. Heart failure, diastolic, chronic ([facility]) (I50.32) 6. 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 congestive heart failure and stage 3 chronic kidney disease, unspecified whether stage 3a or 3b CKD ([facility]) (I13.0) - No edema or skin breakdown observed. - Continue current management. 7. Paroxysmal atrial fibrillation ([facility]) (I48.0) - Recent INR levels fluctuated from 6.7 to 1.1; no dietary changes reported. - Warfarin dosage adjusted last week; next INR check scheduled for . - No significant bleeding or bruising beyond baseline. - Continue current management. 8. Bronchiectasis without complication ([facility]) (J47.9) 9. Chronic obstructive pulmonary disease, unspecified COPD type ([facility]) (J44.9) - No acute exacerbations reported. - Continue current management. 10. Chronic hypoxic respiratory failure, on home oxygen therapy ([facility]) (J96.11) - Patient remains on home oxygen therapy. - Continue current management. 11. Gastroesophageal reflux disease without esophagitis (K21.9) - No current issues reported. - Continue current management. 12. Stage 3 chronic kidney disease, unspecified whether stage 3a or 3b CKD ([facility]) (N18.30) - No issues with urine output or bowel movements reported. - Continue current management. 13. Bilateral carotid artery stenosis (I65.23) - Continue current management. (See patient after visit summary for additional instructions to patient) Kolby Kim MD Recording using ambient [employer] software for draft documentation of the visit was discussed with the patient/authorized agricultural sales representative; all questions welcomed and answered. Patient/authorized agricultural sales representative agreed to proceed documented in this encounter [facility] 01-12-2025 Instructions Kolby Kim MD - 01/12/2025 1:58 PM EDT - Continue your current anticoagulation (Coumadin) regimen; your dose was increased last week. A follow-up INR test is scheduled for to guide any further adjustments. - Keep using your prescribed oxygen as you have been to maintain comfort. - Continue weekly hospice visits on Fridays; hospice can arrange extra visits if you need more support. - Use your prescribed lorazepam (hazepam) as directed to help manage agitation. - Maintain your neurology, cardiology, and internet e commerce specialist appointments as scheduled. - Plan to receive your COVID booster in the fall; your other immunizations are up to date. documented in this encounter [facility] 01-06-2025 Telephone encounter Note Bill notified and repeats back instructions. [facility] 01-06-2025 Miscellaneous Notes Bill notified and repeats back instructions. Bill notified of new dosage and next INR. Eugenia Long LPN 3 mg T and Th, 2 mg a day rest of the week. Recheck one week. Last INR: INR 1.3 01/06/25 Current dose of coumadin is: 2 mg daily. Last date of dose change: . Previous INR (date and result): 12/18/24 - 1.3 Additional Clinical Information or narrative: Bill with [facility] calls with INR results. Pt is currently in [facility] for Respite Care. Call Bill back with 's message. Eugenia Long LPN documented in this encounter [facility] 01-06-2025 Telephone encounter Note Bill notified of new dosage and next INR. Eugenia Long LPN [facility] 01-06-2025 Telephone encounter Note 3 mg T and Th, 2 mg a day rest of the week. Recheck one week. [facility] 01-06-2025 Telephone encounter Note Last INR: INR 1.3 01/06/25 Current dose of coumadin is: 2 mg daily. Last date of dose change: . Previous INR (date and result): 12/18/24 - 1.3 Additional Clinical Information or narrative: Bill with [facility] calls with INR results. Pt is currently in [facility] for Respite Care. Call Bill back with 's message. Eugenia Long LPN [facility] 01-05-2025 Telephone encounter Note Nurse Alfonso at [facility] updated of INR order. Monique Rose RN [facility] 01-05-2025 Miscellaneous Notes Nurse Alfonso at [facility] updated of INR order. Monique Rose RN Ok to do Nurse Alfonso Javier With [facility] reports patient currently receiving Respite stay at [facility]. Pt on coumadin. Last INR was completed on 12/25/24, result was 1.3. Pt on Coumadin 2 mg daily. Was to recheck her INR on 01/01/25 but was not completed due to update that INR would not be able to be obtained during her stay. Nurse Hamilton with [facility] states if PCP would give him a verbal order to check pt's INR tomorrow (01/06/25), they will complete it. Please call Alfonso raphael, at [phone], with reply. Monique Rose RN documented in this encounter [facility] 01-05-2025 Telephone encounter Note Ok to do [facility] 01-05-2025 Telephone encounter Note Nurse Alfonso Javier With [facility] reports patient currently receiving Respite stay at [facility]. Pt on coumadin. Last INR was completed on 12/25/24, result was 1.3. Pt on Coumadin 2 mg daily. Was to recheck her INR on 01/01/25 but was not completed due to update that INR would not be able to be obtained during her stay. Nurse Hamilton with [facility] states if PCP would give him a verbal order to check pt's INR tomorrow (01/06/25), they will complete it. Please call Alfonso raphael, at [phone], with reply. Monique Rose RN [facility] 12-25-2024 History of Present illness Narrative patient will be in respite stay and will be unable to get her and they will not complete labs Please have patient recheck in 1 week. Cannot go 3 weeks this low. patient had inr completed at [facility] patients inr is 1.3 (patients inr range is 2.5-3.5) patient is currently taking 1mg Wed and 2mg all other days patients last dose change was on 12/18/24 due to a low level of 1.3 (dose at that time ws 1mg Tues Thurs and 2mg all other days) patient has had no changes in medication except for coumadin and no missed doses and no change in diet recommend: patient change coumadin 2mg daily and recheck in 3 week due to patient will be in respite care at the 2 week dandre patient has been scheduled for a 3 week follow up inr on 01/15/25 please review and advise on recommendation patient only needs called if provider does not agree with recommendation documented in this encounter [facility] 12-11-2024 History of Present illness Narrative Spoke with patient and moved appt up. Keily Mcpherson MA December 11, 2024 2:29 PM Would be able to check her in a week instead since has a valve replacement. (Although is hospice) patient had inr completed at [facility] patients inr is 1.1 (patients inr range is 2.5-3.5) patient is currently taking 2mg Tues,Thurs,Sat and 1mg all other days patients last dose change was on 11/06/24 due to a low level of 1.1 (dose at that time was 2mg Tues,Thurs and 1mg all other days) patient has had no changes in medication and no missed doses and no change in diet recommend: patient take 2mg today and then go to coumadin 1mg Tues,Thurs and 2mg all other days and recheck in 2 weeks patient has been scheduled for a 2 week follow up inr on 12/25/24 please review and advise on recommendation patient only needs called if provider does not agree with recommendation documented in this encounter [facility] 11-27-2024 History of Present illness Narrative Agree patient had inr completed at [facility] patients inr is 1.0 (patients inr range is 2.5-3.5) patient is currently taking 2mg Tues,Thurs,Sat and 1mg all other days patients last dose change was on 11/06/24 due to a low level of 1.1 (dose at that time was 2mg Tues,Thurs,and 1mg all other days) patient has had no changes in medication and patient missed 7 days worth of medication as respite care did not give her the coumadin patient has been back on for 3 days and no change in diet Advised patient to continue on the same dose(s) and that they would only be contacted regarding dosage and follow up instructions after review with provider, if a change is needed. Written instructions given and patient verbalized understanding. Presently scheduled in 2 weeks (12/11/24) for follow up INR. documented in this encounter [facility] 11-06-2024 History of Present illness Narrative agree patient had inr completed at [facility] patients inr is 1.1 (patients inr range is 2.5-3.5) patient is currently taking 2mg Tues,Thurs and 1mg all other days patients last dose change was on 10/21/24 due to a low level of 1.6 (dose at that time was 1mg daily) patient has had no changes in medication except for coumadin and no missed doses per spouse and no change in diet recommend: patient change coumadin to 2mg Tues,Thurs,Sat and 1mg all other days and recheck in in 3 weeks (pt is unable to do the usual 2 week check due to she will be at hospice on respite care patient has been scheduled for a 3 week follow up on 11/27/24 please review and advise on recommendation patient only needs called if provider does not agree with recommendation documented in this encounter [facility] 10-31-2024 Telephone encounter Note I sent in for the 1.5 mg oral pill to be taken twice a day. If tolerated we could increase the dose in the future [facility] 10-31-2024 Miscellaneous Notes I sent in for the 1.5 mg oral pill to be taken twice a day. If tolerated we could increase the dose in the future Appeal status still pending. Patient has requested alternative, please advise. documented in this encounter [facility] 10-30-2024 Telephone encounter Note Appeal status still pending. Patient has requested alternative, please advise. [facility] 10-21-2024 Telephone encounter Note Happened upon two different faxes from [facility] in the neurology fax inbox. The first is a fax from 10/17/24 asking for information to confirm the diagnosis of Senile dementia of the Lewy body type. The second is a fax from 10/20/24 at 6:10 AM with a decision to deny the rivastigmine patch because the first fax was not responded to. The following required information was not provided and/or clarified : (1) if your diagnosis includes Senile dementia of the Lewy body type. Reviewed by R.Cordell. Called [phone] and it was explained that because of the denial we need to speak to their appeals department. An appeal has been initiated. Clinical documentation has been faxed with a turnaround time of 72 hours. They asked for the diagnosis and how long the patient has been on the rivastigmine patch, the answers to which were submitted over the phone with agricultural sales representative Kim. Clinical information has been faxed to [phone] with attention to denial reference number [id number] with confirmation of fax. Awaiting expedited appeal response. [facility] 10-21-2024 Miscellaneous Notes Happened upon two different faxes from [facility] in the neurology fax inbox. The first is a fax from 10/17/24 asking for information to confirm the diagnosis of Senile dementia of the Lewy body type. The second is a fax from 10/20/24 at 6:10 AM with a decision to deny the rivastigmine patch because the first fax was not responded to. The following required information was not provided and/or clarified : (1) if your diagnosis includes Senile dementia of the Lewy body type. Reviewed by R.Ph. Called [phone] and it was explained that because of the denial we need to speak to their appeals department. An appeal has been initiated. Clinical documentation has been faxed with a turnaround time of 72 hours. They asked for the diagnosis and how long the patient has been on the rivastigmine patch, the answers to which were submitted over the phone with representative Alvarez. Clinical information has been faxed to [phone] with attention to denial reference number [id number] with confirmation of fax. Awaiting expedited appeal response. Images from the original note were not included. Elza Chu (Vogt: [id number]) [facility] Rx #: [id number] Need Help? Call us at Status Sent to Plan today Drug Rivastigmine 4.6MG/24HR 24 hr patches Form [facility] Medicare Part D Electronic Prior Authorization Form (2016 NCPDP) Pending authorization response. documented in this encounter [facility] 10-21-2024 History of Present illness Narrative agree patient had inr completed at [facility] patients inr is 1.6 (patients inr range is 2.0-3.0) patient is currently taking 1mg daily times 1 week patients last dose change was on 10/09/24 due to a high level of 6.8 (dose at that time was 3mg daily) patient has had no changes in medication except for coumadin and no change in diet FYI - at the reading a C appeared on the machine meaning that there could be a problem with patient HCT level. Patient declined blood draw another finger stick was declined at this time due to hard to get blood out which the milking of the figure is most likely the cause of the C due to cell damage and it was normal and this is a common issue with this patient due to poor circulation recommend: patient change coumadin to 2mg Tues,Thurs and 1mg all other days and recheck in 2 week patient has been scheduled for a 2 week follow up inr on 11/04/24 documented in this encounter [facility] 10-17-2024 Telephone encounter Note Images from the original note were not included. Elza Chu (Vogt: [id number]) [facility] Rx #: [id number] Need Help? Call us at Status Sent to Plan today Drug Rivastigmine 4.6MG/24HR 24 hr patches Form [facility] Medicare Part D Electronic Prior Authorization Form (2016 [facility]) Pending authorization response. [facility] 10-15-2024 Note Addended by: SHAWN CORRAL on: 10/15/2024 03:08 PM Modules accepted: Orders [facility] 10-15-2024 Telephone encounter Note No worries I sent it in [facility] 10-15-2024 Miscellaneous Notes Addended by: SHAWN SANTANA on: 10/15/2024 03:08 PM Modules accepted: Orders No worries I sent it in Are you able to send the exelon patches to the [facility] pharmacy? I called them and they have these patches in stock, also I added the pharmacy to patients chart. They would not let me give verbal at this time. Patient's called back. Please send script to [facility] in [place]. [address] [place] [address] Ph. [phone] Please contact patient once script has been sent. LVM for patient or to call the office back to let us know what other pharmacy we can try to send this to. [facility] [place] [facility] stating rivastigmine (EXELON) 4.6 mg/24 hour patch requires prior authorization. Steven also states medication is on back order and they wouldn't have that in until end of September or longer. documented in this encounter [facility] 10-15-2024 Telephone encounter Note Are you able to send the exelon patches to the [facility]? I called them and they have these patches in stock, also I added the pharmacy to patients chart. They would not let me give verbal at this time. [facility] 10-15-2024 Telephone encounter Note Patient's called back. Please send script to [facility] in [place]. [address] [place] [address] Ph. [phone] Please contact patient once script has been sent. [facility] 10-15-2024 Telephone encounter Note LVM for patient or to call the office back to let us know what other pharmacy we can try to send this to. [facility] 10-15-2024 Telephone encounter Note [facility] [place] [facility] stating rivastigmine (EXELON) 4.6 mg/24 hour patch requires prior authorization. Steven also states medication is on back order and they wouldn't have that in until end september or longer. [facility] 10-14-2024 History of Present illness Narrative agree patient had inr completed at [facility] patients inr is 1.6 (patients inr range is 2.0-3.0) patient is currently holding 3mg daily since 10/09/24 due to a high level of 6.4 patients last dose change was on 09/11/24 due to a high level of 4.0 (dose at that time was 5mg Fri and 3mg all other days) patient has had no changes in medication except for coumadin and no change in diet FYI - at the reading a C appeared on the machine meaning that there could be a problem with patient HCT level. Patient declined blood draw another finger stick was declined at this time due to hard to get blood out which the milking of the figure is most likely the cause of the C due to cell damage and it was normal and this is a common issue with this patient due to poor circulation recommend: patient restart coumadin at 1mg daily and recheck in 1 week patient has been scheduled for a 1 week follow up inr on 10/21/24 FYI - patient needs an rx for 1mg sent to the pharmacy, rx has been pended please review and advise on recommendation patient only needs called if provider does not agree with recommendation documented in this encounter [facility] 10-13-2024 Instructions Shawn Santana MD - 10/13/2024 12:20 PM EDT Lets try getting rivastigmine patch to replace donepezil - it works similarly but usually has less side effects. I'm sending in the lowest dose of it, apply the patch once a day. I printed some papers about its use and where it can be applied. Watch out for diarrhea, decreased appetite, nightmares, heart rate changes, sleepiness, or skin reactions. documented in this encounter [facility] 10-13-2024 History of Present illness Narrative FOLLOW UP NOTE Subjective Elza Chu is a 78 year old female who presents for follow up. Here with her . 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 Her examination demonstrates mild parkinsonism and signs of right lumbar radiculopathy. Agree with diagnosis of Lewy Body Dementia. Explained patients with this can have parkinsonism but that treatment may worsen hallucinations. Her parkinsonism is mild enough that I wouldn't recommend treating it at this time. Encouraged physical activity. Rivastigmine patch may help with hallucinations as well as for cognition, they will watch closely with previous side effects to donepezil. The RLE symptoms which are contributing to her gait likely due to lumbar radiculopathy. She had injections for this in the past. Would not suggest surgical evaluation, but could do physical therapy or see spine medicine specialist for injections / other treatments. 11/2022 try to get patch again. 11/2023 resume donepezil titrate to 5 mg. 03/2024 on donepezil 2.5 helping mildly, encouraged increasing to 5 mg. HPI Current Issues - Has been doing hospice for 2 months, working with home hospice who comes once a week and they can send someone out 19/02 if needed - Still doing donepezil 2.5 mg but only takes it every other night due to concern about fatigue - Has been doing worse just overall,. Seems short of breath. Feels weak in her legs. thinks she is in stage 6. - Continues to have CAPGRAS delusion - Generally doesn't have formed hallucinations, sometimes thinks their dog is a cat - Still gets agitated at night sometimes - Takes diazepam 1/2 pill 4 times a day Current Outpatient Medications Medication Sig Dispense Refill potassium chloride ER (KLOR-CON) 20 mEq tablet Take 1 tablet by mouth once daily. [address] (PROTONIX) 40 mg tablet Take 1 tablet by mouth two times a day. 180 tablet 3 furosemide (LASIX) 40 mg tablet Take 1 tablet by mouth once daily. 90 tablet 1 donepezil (ARICEPT) 5 mg tablet Take 1 tablet by mouth daily at bedtime. 30 tablet 5 PARoxetine (PAXIL) 30 mg tablet Take 1 tablet by mouth once daily. 90 tablet 3 warfarin (COUMADIN) 3 mg tablet 2.5 mg MW and 4.5 mg all other days or as directed 90 tablet 3 montelukast (SINGULAIR) 10 mg tablet Take 1 tablet by mouth daily at bedtime. 90 tablet 3 metoprolol succinate ER (TOPROL XL) 100 mg Take 1 tablet by mouth once daily. 90 tablet 1 buPROPion XL (WELLBUTRIN XL) 150 mg 24 hr tablet Take 1 tablet by mouth once daily. 90 tablet 3 loratadine (CLARITIN) 10 mg tablet Take 10 mg by mouth once daily. Ipratropium [place] (ATROVENT) 21 mcg (0.03 %) nasal spray diazePAM (VALIUM) 2 mg tablet Take by mouth twice daily. Take 1 tablet in the AM and 1/2-1 tablet in the evening. warfarin (COUMADIN) 2.5 mg tablet 2.5 mg daily or as directed 90 tablet 3 albuterol (PROVENTIL) 2.5 mg /3 mL (0.083 %) nebulizer solution Use 3 mL via nebulizer every 6 hours as needed for wheezing/shortness of breath. DX: J45.40 Hx of moderate persistent Asthma 360 mL 3 nitroglycerin sublingual (NITROQUICK) 0.4 mg SL tablet amLODIPine (NORVASC) 2.5 mg tablet Take 1 tablet by mouth once daily. amiodarone (PACERONE) 200 mg tablet Take 100 mg by mouth once daily. albuterol HFA (PROAIR HFA) 90 mcg/actuation inhaler Inhale 2 Puffs as instructed every 4 hours as needed. 3 Inhaler 0 acetaminophen (TYLENOL EXTRA STRENGTH) 500 mg tablet Take 1 tablet by mouth every 4 hours as needed for Pain. RANGE FREQ? 0 Nebulizer NEBULIZER FOR HOME USE and necessary supplies. DX: Hypoxemia, Pneumonia and Hemoptisis 1 Each 0 pravastatin (PRAVACHOL) 80 mg tablet TAKE 1 TABLET BY MOUTH ONCE DAILY 90 tablet 3 aspirin 81 mg chewable tablet Take 2 tablets by mouth once daily. 0 ezetimibe(ZETIA 10 MG TAB) Take one(1) tablet daily. 0 ergocalciferol 50,000 unit capsule (VITAMIN D2, DRISDOL) Take 1 capsule by mouth every other week. (Patient not taking: Reported on 10/13/2024) 12 capsule 1 No current facility-administered medications for this visit. REVIEW OF SYSTEMS Her ROS was positive for that mentioned in the HPI. Otherwise a 10-point ROS was completed and was negative. Objective OBJECTIVE 10/13/24 1202 BP: 101/65 BP Site: Left Arm BP Position: Sitting BP Cuff Size: Regular Adult Pulse: 64 Temp: 36.4 C (97.6 F) TempSrc: Tympanic General: General Appearance: Well appearing, alert, in no acute distress, well-hydrated, well nourished. Head: Normocephalic Neck: Supple Heart: RRR Neurologic Exam: Mental Status: She is alert. Disoriented to time. Attention impaired to months backwards. Recall of her history is impaired. Affect is restricted. Cranial Nerves: Extraocular movements show full and smooth pursuits. No nystagmus. Visual godwin are full to confrontation. Facial activation is symmetric. Hearing is intact to conversation. There is mild hypomimia. There is mild hypophonia. There is no dysarthria. Tongue is midline. Palate elevates symmetrically. Shoulder shrug is normal. Motor: Muscle bulk is normal. Mild RLE weakness. Mild R>LUE bradykinesia. Minimal rigidity. Subtle right hand tremor. Coordination: Finger to nose is smooth without ataxia. Gait/station: In wheelchair today DATA REVIEW Actual films/image/tracing reviewed and summarized as follows: n/a Old records reviewed and summarized as follows: CT L-spine 09/19/22 multilevel degenerative changes comparable to prior exam CT L-spine 09/18/21 severe degenerative changes / compression deformities. Reviewed referral records from Dr. Sanchez and prior neuro records from Dr. Monreal Assessment/Plan ASSESSMENT & PLAN: Elza Chu is a 78 year old right-handed female with a history of Lewy Body Dementia, mechanical AVR on coumadin, and depression amongst other conditions who presents for follow up of parkinsonism in LBD. Her examination demonstrates cognitive impairment and parkinsonism. 1. LBD - Worried about donepezil side effects - Will try to change it to rivastigmine patch which tends to be better tolerated. If unable to get approved can try low dose rivastigmine pills 1.5 BID to start - Discussed side effects - If hallucinations or agitation problematic can try low dose quetiapine or Nuplazid, would be to be cautious with neuroleptic sensitivity in LBD - Continue supportive care Follow-up: 6 months Risks & Side Effects of Newly Prescribed Medication, Discussed with Patient: YES Shawn Santana MD [facility] documented in this encounter [facility] 10-09-2024 History of Present illness Narrative left message for spouse to contact office Would we be able to recheck it tomorrow to make sure it is not getting any worse?Thanks! patient had inr completed at [facility] patients inr is 6.4 (patients inr range is 2.5-3.5) patient is currently taking 3mg daily patients last dose change was on 09/11/24 due to a high level of 4.0 (dose at that time was 5mg Fri and 3mg all other days) patient has had no changes in medication and no uninstructed missed doses and no change in diet recommend: patient hold coumadin until recheck on 10/14/24 patient has been scheduled for a recheck on 10/14/24 please review and advise on recommendation patient only needs called if provider does not agree with recommendation documented in this encounter [facility] 10-02-2024 History of Present illness Narrative Agree with anticoagulation recommendation patient had inr completed at [facility] patients inr is 3.8 (patients inr range is 2.5-3.5) patient is currently taking 3mg daily patients last dose change was on 09/11/24 due to a high level of 4.0 (dose at that time was 5mg Fri and 3mg all other days) patient has had no changes in medication and no missed doses and no change in diet Patient thinks that she might have gotten a 5mg tablet last week recommend: patient hold coumadin today and then go back to the 3mg daily and recheck in 1 week patient has been scheduled for a 1 week follow up inr on 10/09/24 please review and advise on recommendation patient only needs called if provider does not agree with recommendation documented in this encounter [facility] 09-18-2024 History of Present illness Narrative agree patient had inr completed at [facility] patients inr is 3.0 (patients inr range is 2.5-3.5) patient is currently taking 3mg dialy patients last dose change was on 09/11/24 due to a high level of 4.0 (dose at that time was 5mg Fri and 3mg all other days) patient has had no changes in medication except for coumadin and no missed doses and no change in diet Advised patient to continue on the same dose(s) and that they would only be contacted regarding dosage and follow up instructions after review with provider, if a change is needed. Written instructions given and patient verbalized understanding. Presently scheduled in 2 weeks (10/02/24) for follow up INR since this is the first normal reading since dose chnage documented in this encounter [facility] 09-11-2024 History of Present illness Narrative Agree with anticoag's recommendation patient had inr completed at [facility] patients inr is 4.0 (patients inr range is 2.5-3.5) patient is currently taking 5mg Fri and 3mg all other days patients last dose change was on 08/08/24 due to a low level of 2.0 (dose at that time was 3mg daily) patient has had no changes in medication and no missed doses and no change in diet recommend: patient change coumadin 3mg daily and recheck in 1 week patient has been scheduled for a 1 week follow up inr on 09/18/24 please review and advise on recommendation patient only needs called if provider does not agree with recommendation documented in this encounter [facility] 09-11-2024 History of Present illness Narrative encounter is being closed at this time due to inr value is no longer valid due to patient had inr repeated today (09/11/24) patient had inr completed at [facility] patients inr is 2.6 (patients inr range is 2.5-3.5) patient is currently taking 5mg Fri and 3mg all other days patients last dose change was on 08/08/24 due to a low level of 2.0 (dose at that time was 3mg daily) patient has had no changes in medication except for coumadin and no missed doses and no change in diet Advised patient to continue on the same dose(s) and that they would only be contacted regarding dosage and follow up instructions after review with provider, if a change is needed. Written instructions given and patient verbalized understanding. Presently scheduled in 3 weeks (09/11/24) for follow up INR. documented in this encounter [facility] 08-08-2024 History of Present illness Narrative agree patient had inr completed at [facility] patients inr is 2.0 (patients inr range is 2.5-3.5) patient is currently taking 3mg daily patients last dose change was on 07/09/24 due to a high level of 5.0 (dose at that time was 5mg Wed and 3mg all other days) patient has had no changes in medication and no missed doses and no change in diet recommend: patient change coumadin to 5mg Fri and 3mg all other days and recheck in 2 weeks patient has been scheduled for a 2 week follow up inr on 08/22/24 please review and advise on recommendation patient only needs called if provider does not agree with recommendation documented in this encounter [facility] 07-18-2024 History of Present illness Narrative agree patient had inr completed at [facility] patients inr is 2.1 (patients inr range is 2.5-3.5) patient is currently taking 3mg daily patients last dose change was on 07/09/24 due to a high level of 5.0 (dose at that time was 5mg Wed and 3mg all other days) patient has had no changes in medication except for coumadin and no uninstructed missed doses and no change in diet Advised patient to continue on the same dose(s) and that they would only be contacted regarding dosage and follow up instructions after review with provider, if a change is needed. Written instructions given and patient verbalized understanding. Presently scheduled in 3 weeks (08/08/24 due to the holidays) for follow up INR since inr level is just slightly low but patient was instructed to hold 2 doses last week documented in this encounter [facility] 07-09-2024 History of Present illness Narrative Patient presents with: 6 Month Exam HPI: Patient presents today for office visit for follow up. Trouble with sciatica. Started on Sunday or Sunday. Lifted her right leg up over her knee to put her sock on and now with pain in her low back bilaterally and down right leg. No falls. No trauma. Using heat prn. Using tylenol prn. No numbness or weakness in the leg. INR today elevated at 5.0. No unusually bleeding or bruising. Last hospitalization was 06/18/24 for pneumonia. Finished all ATB. Breathing is stable. Still wearing oxygen. Had chf as well. No cough or fever No edema. In touch with Hospice services now and sees them once per week. This is more helpful than Palliative Care. They feel things are going over all ok. We are currently leaving meds in place. Saw the heart group yesterday. Stress and anxiety is doing well. No worsening memory issues. Has ing. No falls Appetite is ok. MEDICATIONS: Current Outpatient Medications Medication Sig potassium chloride ER (KLOR-CON) 20 mEq tablet Take 1 tablet by mouth once daily. ergocalciferol 50,000 unit capsule (VITAMIN D2, DRISDOL) Take 1 capsule by mouth every other week. pantoprazole DR (PROTONIX) 40 mg tablet Take 1 tablet by mouth two times a day. furosemide (LASIX) 40 mg tablet Take 1 tablet by mouth once daily. donepezil (ARICEPT) 5 mg tablet Take 1 tablet by mouth daily at bedtime. PARoxetine (PAXIL) 30 mg tablet Take 1 tablet by mouth once daily. warfarin (COUMADIN) 3 mg tablet 2.5 mg MW and 4.5 mg all other days or as directed montelukast (SINGULAIR) 10 mg tablet Take 1 tablet by mouth daily at bedtime. metoprolol succinate ER (TOPROL XL) 100 mg Take 1 tablet by mouth once daily. buPROPion XL (WELLBUTRIN XL) 150 mg 24 hr tablet Take 1 tablet by mouth once daily. loratadine (CLARITIN) 10 mg tablet Take 10 mg by mouth once daily. Ipratropium [place] (ATROVENT) 21 mcg (0.03 %) nasal spray diazePAM (VALIUM) 2 mg tablet Take by mouth twice daily. Take 1 tablet in the AM and 1/2-1 tablet in the evening. warfarin (COUMADIN) 2.5 mg tablet 2.5 mg daily or as directed albuterol (PROVENTIL) 2.5 mg /3 mL (0.083 %) nebulizer solution Use 3 mL via nebulizer every 6 hours as needed for wheezing/shortness of breath. DX: J45.40 Hx of moderate persistent Asthma nitroglycerin sublingual (NITROQUICK) 0.4 mg SL tablet amLODIPine (NORVASC) 2.5 mg tablet Take 1 tablet by mouth once daily. amiodarone (PACERONE) 200 mg tablet Take 100 mg by mouth once daily. albuterol HFA (PROAIR HFA) 90 mcg/actuation inhaler Inhale 2 Puffs as instructed every 4 hours as needed. acetaminophen (TYLENOL EXTRA STRENGTH) 500 mg tablet Take 1 tablet by mouth every 4 hours as needed for Pain. RANGE FREQ? Nebulizer NEBULIZER FOR HOME USE and necessary supplies. DX: Hypoxemia, Pneumonia and Hemoptisis pravastatin (PRAVACHOL) 80 mg tablet TAKE 1 TABLET BY MOUTH ONCE DAILY aspirin 81 mg chewable tablet Take 2 tablets by mouth once daily. ezetimibe(ZETIA 10 MG TAB) Take one(1) tablet daily. No current facility-administered medications for this visit. ALLERGIES: ALLERGIES Allergen Reactions Adhesive Rash Blistering at site of application. Dextromethorphan Other: See Comments, Mental Status Change Risperidone Other: See Comments Sulfa (Sulfonamide * Other: See Comments Renal dysfunction. Childhood reaction. Generalized swelling Celebrex [Celecoxib] Intolerance Migraine headache. Aricept [Donepezil] Myalgia muscle pain and difficulty walking Compazine [Prochlor* Other: See Comments low BP Crestor [Rosuvastat* GI Upset Gabapentin Intolerance Confusion, when coupled with norco Lipitor [Atorvastat* Myalgia Lisinopril Cough Oxycodone Itching Penicillins Other: See Comments Heart palpitations. No rash or itch. Can take cephalosporins Prozac [Fluoxetine * Other: See Comments hallucinating Ultram [Tramadol Hc* Itching Codeine Itching PAST MEDICAL HISTORY Diagnosis Date Adjustment disorder with depressed mood Aortic valve disorder Dr. Mckay Carotid stenosis Compression deformity of vertebra Congestive heart failure (HCC) COPD (chronic obstructive pulmonary disease) (HCC) 01/03/2013 Esophageal reflux Normal EGD 12/2012 H/O aortic valve replacement INR should be 2.5 to 3.5 High blood pressure Hyperlipidemia Impaired glucose tolerance Intrinsic asthma 06/[address] done per Dr. Mckay Migraine Myalgia and myositis, unspecified Other forms of migraine Parkinsonism (HCC) Thyroid nodule Unspecified essential hypertension PAST SURGICAL HISTORY Procedure Laterality Date ANTERIOR COLPORRAPHY RPR CYSTOCELE W/CYSTO 2001 w/ uterosacral suspension CARDIOVERSION [facility]- Spring 2019 CLOSURE SEMILUNAR VALVE AORTIC/PULM SUTURE/PATCH 2003 had aortic valve replacement w/ bovine valve COLONOSCOPY 05/08/2017 COLONOSCOPY FLX DX W/COLLJ SPEC WHEN PFRMD 01/15/2013 Colonoscopy COLSC FLX W/RMVL OF TUMOR POLYP LESION SNARE TQ 05/07/2017 Colonoscopy - cecal inflammatory polyps. Repeat in 5 yrs DISPLACEMENT THERAPY PROETZ TYPE x3 ESOPHAGOGASTRODUODENOSCOPY TRANSORAL DIAGNOSTIC 01/15/2013 EGD ESOPHAGOGASTRODUODENOSCOPY TRANSORAL DIAGNOSTIC 05/07/2017 EGD FOOT RIGHT OP SURGERY 05/05/2009 HEMORRHOIDECTOMY XTRNL 2/> COLUMN/GROUP LAPS VAGINAL HYSTERECTOMY UTERUS 250 GM/< usvvs, enterocele repair,apr,lsc pvdr,cysto,spt LOW BACK DISK SURGERY 06/2011 OOPHORECTOMY PARTIAL/TOTAL UNI/BI PAST SURGICAL HISTORY OF 04/2012 Thyroid [id number] PAST SURGICAL HISTORY OF aug and september 2011 cataract removal PAST SURGICAL HISTORY OF 2013 aortic valve with On-X valve PERCUTANEOUS AORTIC VALVE REPLACEMENT 09/2013 POSTERIOR COLPORRHAPHY, REPAIR RECTOCELE 2001 SINUS SURGERY PROC UNLISTED [address] Styles ([place]), [address] Wood, 1 in [place] TONSILLECTOMY PRIMARY/SECONDARY <AGE 11 TOTAL ABDOMINAL HYSTERECT W/WO RMVL TUBE OVARY age 31 FAMILY HISTORY Problem Relation Age of Onset Heart Mother Heart Father Diabetes Sister Lipids Sister Diabetes Brother Hypertension Brother Lipids Brother Lipids Daughter other (Depression) Daughter GI Son Lipids Son Colon Cancer No Family History Social History Tobacco Use Smoking status: Never Smokeless tobacco: Never Tobacco comments: Father smoked in childhood home. Spouse non-smoker. Vaping Use Vaping status: Never Used Substance Use Topics Alcohol use: No Drug use: No Reviewed current medications, allergies, past medical history, surgical history, family history and social history today. REVIEW OF SYSTEMS All other reviewed and negative other than HPI. HEALTH MAINTENANCE: Reviewed health maintenance issues today and recommended the following in detail. Shingrix Vaccine(1 of 2) Never done DTaP,Tdap,Td Vaccine(1 - Tdap) due on 06/30/2011 Influenza Vaccine(1) due on 03/30/2024 Covid-19 Vaccine( season) due on 03/30/2024 Bone Density Screening due on 07/11/2024 VITALS: BP 108/62 Pulse 100 Wt 51.6 kg (113 lb 12.1 oz) BMI 22.22 kg/m Last 4 Encounter Wt Readings: Date: Wt: 04/14/2024 0 kg () 01/02/2024 49.4 kg (109 lb) 07/18/2023 50.8 kg (112 lb) 06/27/2023 50.3 kg (110 lb 12.8 oz) PHYSICAL EXAMINATION: General appearance: Well appearing, alert, in no acute distress, well-hydrated, well nourished. Skin: Skin color, texture, turgor normal, no suspicious rashes or lesions Head: Normocephalic, no masses, lesions, tenderness or abnormalities Lungs: decreased breath sounds bilaterally. Heart: RRR . Murmur unchanged. gallop, or rubs. No ectopy Abdomen: Normal abdominal exam, Abdomen soft, non-tender. Bowel sounds normal. No masses, organomegaly Extremities: No deformities, edema, skin discoloration, clubbing or cyanosis. Good capillary refill. Musculoskeletal: No joint swelling, deformity, or tenderness Neuro: Gait normal. Reflexes normal and symmetric. Sensation grossly intact. ASSESSMENT/PLAN: 1. Parkinsonism, unspecified Parkinsonism type (HCC) - ICD9: 332.0, ICD10: G20.C (primary diagnosis) - stable. 2. Hyperlipidemia LDL goal <100 - ICD9: 272.4, ICD10: E78.5 - Controlled - Continue current medications 3. Aortic valve stenosis with insufficiency, etiology of cardiac valve disease unspecified - ICD9: 424.1, ICD10: I35.2 - stable. 4. 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 congestive heart failure and stage 3 chronic kidney disease, unspecified whether stage 3a or 3b CKD (HCC) - ICD9: 404.91, 428.32, 428.0, 585.3, ICD10: I13.0, I50.32, N18.30 - Controlled - Continue current medications 5. Paroxysmal atrial fibrillation (HCC) - ICD9: 427.31, ICD10: I48.0 - stable. 6. Bronchiectasis without complication (HCC) - ICD9: 494.0, ICD10: J47.9 - stable. 7. Moderate persistent asthma without complication - ICD9: 493.90, ICD10: J45.40 - stable. 8. Chronic obstructive pulmonary disease, unspecified COPD type (HCC) - ICD9: 496, ICD10: J44.9 - stable. 9. Chronic sinusitis, unspecified location - ICD9: 473.9, ICD10: J32.9 - stable. 10. Impaired glucose tolerance - ICD9: 790.22, ICD10: R73.02 - stable. 11. Compression deformity of vertebra - ICD9: 738.5, ICD10: M43.9 - stable. Continue hospice care 12. Lewy body dementia with psychotic disturbance, unspecified dementia severity (HCC) - ICD9: 331.82, 294.11, ICD10: G31.83, F02.82 - continue conservative care. Hold on labs. 13. Depression, unspecified depression type - ICD9: 311, ICD10: F32.A - stable. 14. Other disorders of arteries, arterioles and capillaries in diseases classified elsewhere (HCC) - ICD9: 443.81, ICD10: I79.8 - stable. 15. Encounter for long-term (current) use of insulin ([facility]) - ICD9: V58.67, ICD10: Z79.4 - stable. 16. 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 17. Sciatica, right side - ICD9: 724.3, ICD10: M54.31 - ice and heat prn..Call if symptoms worsen at all or if not better in one to two weeks Kolby Kim MD documented in this encounter [facility] 07-09-2024 History of Present illness Narrative agree patient had inr completed at [facility] patients inr is 5.0 (patients inr range is 2.5-3.5) patient is currently taking 5mg Wed and 3mg all other days patients last dose change was on 04/03/24 due to a high level of 3.6 (dose at that time was 5mg Tues,Sat and 3mg all other days) patient has had no changes in medication and no missed doses and no change in diet recommend: patient hold coumadin times 2 days and then restart at 3mg daily and recheck in 1 week patient has been scheduled for a 1 week follow up inr on 07/18/24 please review and advise on recommendation patient only needs called if provider does not agree with recommendation documented in this encounter [facility] 06-19-2024 History of Present illness Narrative Agree with anticoag recommendation patient had inr completed at [facility] patients inr is 3.6 (patients inr range is 2.5-3.5) patient is currently taking 5mg Wed and 3mg all other days patients last dose change was on 04/03/24 due to a high level of 3.6 (dose at that time was 5mg Tues,Sat and 3mg all other days) patient has had a change in medication as patient was just released from [facility] with pneumonia and is on antibiotics and prednisone and no missed doses and no change in diet FYI - patient will be starting on palliative/hospice also soon recommend: patient hold coumadin today and then resume regular dosing starting tomorrow and recheck in 3 weeks patient has been scheduled for a 3 week follow up inr on 07/09/24 (patient has appt with pcp also this day) please review and advise on recommendation patient only needs called if provider does not agree with recommendation documented in this encounter [facility] 06-19-2024 Telephone encounter Note Noted. Thank you [facility] 06-19-2024 Miscellaneous Notes Noted. Thank you Jenifer with [facility] calls to let provider know that patient has been admitted to hospice services in the home as of 06/18/2024. Pamela Montes De Oca RN documented in this encounter [facility] 06-19-2024 Telephone encounter Note Jenifer with [facility] calls to let provider know that patient has been admitted to hospice services in the home as of 06/18/2024. Pamela Montes De Oca RN [facility] 06-18-2024 Note [facility] Medical Records Department [address] [place] [id number] Discharge Summary 06/18/24 1246 MR#: [id number] Acct: [id number] Name: ELZA CHU Rep #: [id number] : [id number] From: Harry Pate MD PCP: Dr. Kolby Kim MD Status:ADM IN Location: [facility] [id number] Providers Date of Admission: 06/14/24 Date of Discharge: 06/18/24 Primary Care Physician: Dr. Kolby Kim MD Consultations 06/17/24 14:47 Consult: Hospice / Palliative Care Routine Consulting Provider: [facility] Reason for Consult: Heart failure, COPD, Low cardiopulmonary reserve EMERGENT Consult: Yes MD Notified: Yes Date Notified: 06/17/24 Time Notified: 14:47 Method of Notification: Answering Service Reason For Visit: ACUTE HYPOXIA ON CHRONIC, COPD/ Diagnosis Discharge Diagnosis (1) Asthma exacerbation: Status: Acute Code(s): J45.901 - Unspecified asthma with (acute) exacerbation Plan Patient is a 78-year-old lady with history of chronic hypoxic respiratory failure on baseline home oxygen 4 L at rest who presented with shortness of breath and cough over 3-day. Imaging studies obtained on admission did show Bilateral pleural effusions slightly larger on the right with mild consolidation of both lower lobes. Admitted to regular nursing floor for further management 1. Acute hypoxia Superimposed on chronic hypoxic respiratory failure ??? Secondary to multifocal pneumonia as well as suspected COPD exacerbation as well as congestive heart failure. 06/17: Patient still on 4 L of oxygen. Discussed with the case consultant although 2 L of home oxygen was ordered but she was using 4 L of oxygen. Her agreed for home palliative care follow-up. 06/18: Patient is tachycardic and blood pressure normal. Hospice was consulted because patient has very low cardiopulmonary reserve with dyspnea on mild exertion. and patient accepted for home hospice care. 2. Multifocal pneumonia ??? Imaging studies obtained on admission did show Bilateral pleural effusions slightly larger on the right with mild consolidation of both lower lobes. Admitted to regular nursing floor blood and sputum cultures sent. Patient placed on meropenem and azithromycin and placed on oxygen titrated to keep Pulse Ox greater than 90. Azithromycin IV changed to oral 1 more day tomorrow. 06/16: Sputum culture prelim Gram stain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 due, in the near future, with this provider at this time: Yes The last office visit in the department: 01/02/24 Does the patient have a future office visit with this provider/department: Yes 07/09/24 Requested Prescriptions Pending Prescriptions Disp Refills pantoprazole DR (PROTONIX) 40 mg tablet 180 tablet 3 Sig: Take 1 tablet by mouth two times a day. Gerri Santoro February 13, 2024 10:53 AM [facility] 02-13-2024 Miscellaneous Notes Prescription Refill Information The patient has been identified by name and date of : Yes Caregiver verified no other encounters exist for this prescription request: Yes Caregiver confirmed with patient/requestor that no other refills are due, in the near future, with this provider at this time: Yes The last office visit in the department: 01/02/24 Does the patient have a future office visit with this provider/department: Yes 07/09/24 Requested Prescriptions Pending Prescriptions Disp Refills pantoprazole DR (PROTONIX) 40 mg tablet 180 tablet 3 Sig: Take 1 tablet by mouth two times a day. Gerri Santoro February 13, 2024 10:53 AM documented in this encounter [facility] 02-13-2024 Telephone encounter Note Pat is a patient of Kolby Kim MD today Trent called to request Medication for an upcoming dental appointment. Please send to [facility]: Disp Refills Start End clindamycin (CLEOCIN) 300 mg capsule 2 capsule 0 01/16/2024 01/16/2024 Sig: Take 2 capsules by mouth one time only for 1 dose. Sent to pharmacy as: clindamycin (CLEOCIN) 300 mg capsule Class: Normal Route: ORAL Order: [id number] E-Prescribing Status: Receipt confirmed by pharmacy (01/16/2024 10:50 AM EDT) Patient has been identified by name and birthdate. Duration of symptoms: N/A Person calling: spouse: Trent Call patient at: on cell [phone] (home) [phone] (cell) Was an appointment scheduled: No Closing statement: Results or non-symptom based questions: Thank you for calling [facility], your call will be returned within the next business day. Gerri Olivia [facility] 02-13-2024 Miscellaneous Notes Pat is a patient of Kolby Kim MD today Trent called to request Medication for an upcoming dental appointment. Please send to [facility]: Disp Refills Start End clindamycin (CLEOCIN) 300 mg capsule 2 capsule 0 01/16/2024 01/16/2024 Sig: Take 2 capsules by mouth one time only for 1 dose. Sent to pharmacy as: clindamycin (CLEOCIN) 300 mg capsule Class: Normal Route: ORAL Order: [id number] E-Prescribing Status: Receipt confirmed by pharmacy (01/16/2024 10:50 AM EDT) Patient has been identified by name and birthdate. Duration of symptoms: N/A Person calling: spouse: Trent Call patient at: on cell [phone] (home) [phone] (cell) Was an appointment scheduled: No Closing statement: Results or non-symptom based questions: Thank you for calling [facility], your call will be returned within the next business day. Gerri Olivia Pss documented in this encounter [facility] 02-01-2024 History of Present illness Narrative [facility] Care Path Telephonic Outreach Provider Action/FYI Contact made with patient: Yes Patient identified by Name and Date of . Discussed care with patient. Contacted for Chronic Disease Care Path: Congestive Heart Failure Health maintenance addressed this outreach: Primary Care Provider visit every six (6) months Cardiology visits every Six (6) months Education provided this outreach: Your Guide to Managing Heart Failure: Topics -- Heart Failure Zones Chronic Obstructive Pulmonary Disease Health maintenance addressed this outreach: Primary Care Provider visit every six (6) months Pulmonary Annual Visit Education provided this outreach: COPD Core Education. Topics discussed: COPD Zones / Action Plan GOALS Disease specific goals updated: Yes Patient stated goal(s) updated: Yes Needs Assessment updated this outreach: No Medications Do you have any questions about taking your medication or which medications you should be taking? No Do you need any medication refills at this time, including any of the medications you might take only when needed? No Social It can be normal to feel anxious or down during a time like this. Would you like to talk to a mental health professional about how you have been feeling? No Care Gaps Addressed this Outreach: No Symptoms Are you experiencing any new or worsening symptoms you need to talk about today? No Based on technical program manager, the following disposition is advised: Other Call Dispositions No action needed Program Disposition Patient dispositioned from Program today: No Becca Fenton RN February 01, 2024 3:31 PM documented in this encounter [facility] 01-30-2024 History of Present illness Narrative Agree with recommendations. patient had inr completed at [facility] patients inr is 2.7 (patients inr range is 2.5-3.5) patient is currently taking 5mg Tues,Thurs and 3mg all other days patients last dose change was on 10/04/23 due to a low level of 2.3 (dose at that time was 5mg Thurs and 3mg all other days) patient has had no changes in medication and no missed doses and no change in diet Advised patient to continue on the same dose(s) and that they would only be contacted regarding dosage and follow up instructions after review with provider, if a change is needed. Written instructions given and patient verbalized understanding. Presently scheduled in 4 weeks (02/28/24) for follow up INR. documented in this encounter [facility] 01-30-2024 Telephone encounter Note patients orders for coumadin clinic inr's has at this time. new order has been pended for approval if possible so that patient can continue to get inr's completed thru the coumadin clinic. coumadin clinic nurse only needs called if order can not be approved. [facility] 01-30-2024 Miscellaneous Notes patients orders for coumadin clinic inr's has at this time. new order has been pended for approval if possible so that patient can continue to get inr's completed thru the coumadin clinic. coumadin clinic nurse only needs called if order can not be approved. documented in this encounter [facility] 01-18-2024 History of Present illness Narrative [facility] Care Path Telephonic Outreach Provider Action/FYI Contact made with patient: Yes Patient identified by Name and Date of . Discussed care with patient and spouse. Contacted for Chronic Disease Care Path: Congestive Heart Failure Health maintenance addressed this outreach: Primary Care Provider visit every six (6) months Cardiology visits every Six (6) months Education provided this outreach: Your Guide to Managing Heart Failure: Topics -- Heart Failure Zones Chronic Obstructive Pulmonary Disease Health maintenance addressed this outreach: Primary Care Provider visit every six (6) months Pulmonary Annual Visit Education provided this outreach: COPD Core Education. Topics discussed: COPD Zones / Action Plan GOALS Disease specific goals updated: Yes Patient stated goal(s) updated: Yes Needs Assessment updated this outreach: No Medications Do you have any questions about taking your medication or which medications you should be taking? No Do you need any medication refills at this time, including any of the medications you might take only when needed? No Social It can be normal to feel anxious or down during a time like this. Would you like to talk to a mental health professional about how you have been feeling? No Care Gaps Addressed this Outreach: No Symptoms Are you experiencing any new or worsening symptoms you need to talk about today? No Based on technical program manager, the following disposition is advised: Other Call Dispositions No action needed Program Disposition Patient dispositioned from Program today: No Becca Fenton RN January 18, 2024 4:30 PM documented in this encounter [facility] 01-16-2024 Telephone encounter Note Pat is calling Kolby Kim MD today to request a medication not on current med list: clindamycin (CLEOCIN) 300 mg capsule 2 capsule 0 07/11/2023 07/11/2023 Sig: Take 2 capsules by mouth one time only for 1 dose. [facility] Patient has been identified by name and birthdate. Duration of symptoms: this is for upcoming dental procedure 02/04/2024 Person calling: spouse: Trent Call patient at: on cell [phone] (home) [phone] (cell) Was an appointment scheduled: No Closing statement: Results or non-symptom based questions: Thank you for calling [facility], your call will be returned within the next business day. Heather Call [facility] 01-16-2024 Miscellaneous Notes Pat is calling Kolby Kim MD today to request a medication not on current med list: clindamycin (CLEOCIN) 300 mg capsule 2 capsule 0 07/11/2023 07/11/2023 Sig: Take 2 capsules by mouth one time only for 1 dose. [facility]acy is [facility] Patient has been identified by name and birthdate. Duration of symptoms: this is for upcoming dental procedure 02/04/2024 Person calling: spouse: Trent Call patient at: on cell [phone] (home) [phone] (cell) Was an appointment scheduled: No Closing statement: Results or non-symptom based questions: Thank you for calling [facility], your call will be returned within the next business day. Heather Dixon documented in this encounter [facility] 01-07-2024 Telephone encounter Note Patient notified. Verbalized understanding. [facility] 01-07-2024 Miscellaneous Notes Patient notified. Verbalized understanding. Call if occurs. Recheck xray in one month PATIENT NOTIFIED OF SAME. States she is not having any worsening symptoms. Message left for return call. Gabriela Wood MA Chest xray Shows large hiatal hernia. Shows small amount of fluid in the lung bases. (Pleural effusion). Can forward to [facility] for upcoming appt Any worsening shortness of breath or edema? documented in this encounter [facility] 01-07-2024 Telephone encounter Note Call if occurs. Recheck xray in one month [facility] 01-07-2024 Telephone encounter Note PATIENT NOTIFIED OF SAME. States she is not having any worsening symptoms. [facility] 01-07-2024 Telephone encounter Note Message left for return call. Gabriela Wood MA [facility] 01-07-2024 Telephone encounter Note Chest xray Shows large hiatal hernia. Shows small amount of fluid in the lung bases. (Pleural effusion). Can forward to [facility] for upcoming appt Any worsening shortness of breath or edema? [facility] 01-04-2024 History of Present illness Narrative [facility] Care Path Telephonic Outreach Provider Action/FYI Patient in to see PCP. Contact made with patient: Yes Patient identified by Name and Date of . Discussed care with patient and spouse. Contacted for Chronic Disease Care Path: Congestive Heart Failure Health maintenance addressed this outreach: Primary Care Provider visit every six (6) months Education provided this outreach: Your Guide to Managing Heart Failure: Topics -- Heart Failure Zones Chronic Obstructive Pulmonary Disease Health maintenance addressed this outreach: Primary Care Provider visit every six (6) months Pulmonary Annual Visit Education provided this outreach: COPD Core Education. Topics discussed: COPD Zones / Action Plan GOALS Disease specific goals updated: Yes Patient stated goal(s) updated: Yes Needs Assessment updated this outreach: No Medications Do you have any questions about taking your medication or which medications you should be taking? No Do you need any medication refills at this time, including any of the medications you might take only when needed? No Social It can be normal to feel anxious or down during a time like this. Would you like to talk to a mental health professional about how you have been feeling? No Care Gaps Addressed this Outreach: No Symptoms Are you experiencing any new or worsening symptoms you need to talk about today? No Based on technical program manager, the following disposition is advised: Other Call Dispositions No action needed Program Disposition Patient dispositioned from Program today: No Becca Fenton RN January 04, 2024 12:08 PM documented in this encounter [facility] 01-02-2024 History of Present illness Narrative Radiology Service Progress Note PATIENT NAME: Elza Chu DATE OF SERVICE: January 02, 2024 TIME: 3:14 PM PATIENT IDENTITY VERIFICATION COMPLETED USING TWO (2) IDENTIFIERS: Name and Date of confirmed by patient verbally. FALL SCREENING: Has the patient had 2 falls in the last year or 1 fall with injury or currently using an Ambulatory Assistive Device (Walker, Cane, Wheelchair, Crutches, etc.)? Yes, Patient High Risk for Falls What interventions were put in place to prevent falls during this visit? Offered Assistance with Transfers/Clothing, Instructed Patient to Remain Seated (Not on Exam Table) Until Exam, and Increased Observations by Caregivers PATIENT GENDER DATA: Female. status: : No status: NO. PATIENT RELEVANT IMPLANT DATA REVIEWED: Yes PATIENT PRESENTS WITH AN IMPLANTABLE OR ATTACHED RATE MANAGER: No RADIOLOGY DEPARTMENT: General X-ray: Exam(s) Completed: Chest X-Ray PERIPHERAL IV DATA: Not applicable SIGNED BY: RT Gama(R) January 02, 2024 3:14 PM documented in this encounter [facility] 01-02-2024 History of Present illness Narrative Agree with recommendations. patient had inr completed at [facility] patients inr is 2.7 (patients inr range is 2.5-3.5) patient is currently taking 5mg Tues,Thurs and 3mg all other days patients last dose change was on 10/04/23 due to a low level of 2.3 (dose at that time was 5mg Thurs and 3mg all other days) patient has had no changes in medication and no missed doses and no change in diet Advised patient to continue on the same dose(s) and that they would only be contacted regarding dosage and follow up instructions after review with provider, if a change is needed. Written instructions given and patient verbalized understanding. Presently scheduled in 4 weeks (01/30/24) for follow up INR. documented in this encounter [facility] 01-02-2024 History of Present illness Narrative No chief complaint on file. HPI: Patient presents today for office visit for follow up. States that joint seem stiff and doesn't feel that moves around as good in lower legs. No falls. Swallowing is the same. No bowel issues. Does report some urinary hesitancy at times. Disappointed that has lost more weight thought her clothes were fitting better. Appetite depends on the day. Discussed adding a second boost. Weight is really about the same as it was in May. Last week dementia was really bad. When saw neuro Aricept was added only taking half. ANTICOAGULATION: Patient is on warfarin for A fib. Length of treatment: lifetime. Bleeding or bruising No. Monitored by our office: Yes. Up to date on inr checks Yes. Breathing hasn't been bad. Nose is on continuous dip. Seeing neurology, cardiology and pulmonary. Did have some chest discomfort last week. Radiated to shoulder and neck. Took a nitro and maybe went away. Did not get checked or notify cardiology. Did discuss with Palliative care. They are seeing her regularly. Sees cardiology later this month. She thought about two weeks ago, she noted a lump in her left neck. Was the size of a small candy Is better than it was. No fever or chills. No sore throat Some mild ear pain. Note was copied and pasted, without alteration from last ov in May of 2023. Saw Pulmonary last month. Started on two new inhalers. Unsure of names. Breathing is better. No new or worsening shortness of breath Some wheezing occasionally Wearing oxygen continuously. HTN: Monitors BP occasionally Denies chest pain Some palpitations Denies syncope Edema to B/L ankles and legs occasionally. Continues on Furosemide HLD: Continues on Pravastatin Follows with Cardiology. Sees Dr Johnson, pulmonary Seeing palliative care Has seen neurology. He had mentioned seeing geropsyc but they are comfortable with things at home. Still walking in the home. No falls. In wheelchair today. Anxiety is still present. Palliative is giving diazepem and treating. is providing most of her care. Managing inr closely. Will do labs while here. Weight is relatively stable. Seeing gi due to dysphagia. MEDICATIONS: Current Outpatient Medications Medication Sig ferrous sulfate 325 mg (65 mg iron) tablet Take 1 tablet by mouth two times a day with meals. furosemide (LASIX) 40 mg tablet Take 1 tablet by mouth once daily. donepezil (ARICEPT) 5 mg tablet Take 1 tablet by mouth daily at bedtime. PARoxetine (PAXIL) 30 mg tablet Take 1 tablet by mouth once daily. warfarin (COUMADIN) 3 mg tablet 2.5 mg MW and 4.5 mg all other days or as directed montelukast (SINGULAIR) 10 mg tablet Take 1 tablet by mouth daily at bedtime. metoprolol succinate ER (TOPROL XL) 100 mg Take 1 tablet by mouth once daily. buPROPion XL (WELLBUTRIN XL) 150 mg 24 hr tablet Take 1 tablet by mouth once daily. loratadine (CLARITIN) 10 mg tablet Take 10 mg by mouth once daily. ergocalciferol 50,000 unit capsule (VITAMIN D2, DRISDOL) Take 1 capsule by mouth every other week. Ipratropium [place] (ATROVENT) 21 mcg (0.03 %) nasal spray potassium chloride ER (KLOR-CON) 20 mEq tablet Take 1 tablet by mouth once daily. diazePAM (VALIUM) 2 mg tablet Take by mouth twice daily. Take 1 tablet in the AM and 1/2-1 tablet in the evening. warfarin (COUMADIN) 2.5 mg tablet 2.5 mg daily or as directed albuterol (PROVENTIL) 2.5 mg /3 mL (0.083 %) nebulizer solution Use 3 mL via nebulizer every 6 hours as needed for wheezing/shortness of breath. DX: J45.40 Hx of moderate persistent Asthma pantoprazole DR (PROTONIX) 40 mg tablet Take 1 tablet by mouth twice daily. nitroglycerin sublingual (NITROQUICK) 0.4 mg SL tablet amLODIPine (NORVASC) 2.5 mg tablet Take 1 tablet by mouth once daily. amiodarone (PACERONE) 200 mg tablet Take 100 mg by mouth once daily. albuterol HFA (PROAIR HFA) 90 mcg/actuation inhaler Inhale 2 Puffs as instructed every 4 hours as needed. acetaminophen (TYLENOL EXTRA STRENGTH) 500 mg tablet Take 1 tablet by mouth every 4 hours as needed for Pain. RANGE FREQ? Nebulizer NEBULIZER FOR HOME USE and necessary supplies. DX: Hypoxemia, Pneumonia and Hemoptisis pravastatin (PRAVACHOL) 80 mg tablet TAKE 1 TABLET BY MOUTH ONCE DAILY aspirin 81 mg chewable tablet Take 2 tablets by mouth once daily. ezetimibe(ZETIA 10 MG TAB) Take one(1) tablet daily. No current facility-administered medications for this visit. ALLERGIES: ALLERGIES Allergen Reactions Adhesive Rash Blistering at site of application. Dextromethorphan Other: See Comments, Mental Status Change Risperidone Other: See Comments Sulfa (Sulfonamide * Other: See Comments Renal dysfunction. Childhood reaction. Generalized swelling Celebrex [Celecoxib] Intolerance Migraine headache. Aricept [Donepezil] Myalgia muscle pain and difficulty walking Compazine [Prochlor* Other: See Comments low BP Crestor [Rosuvastat* GI Upset Gabapentin Intolerance Confusion, when coupled with norco Lipitor [Atorvastat* Myalgia Lisinopril Cough Oxycodone Itching Penicillins Other: See Comments Heart palpitations. No rash or itch. Can take cephalosporins Prozac [Fluoxetine * Other: See Comments hallucinating Ultram [Tramadol Hc* Itching Codeine Itching PAST MEDICAL HISTORY Diagnosis Date Adjustment disorder with depressed mood Aortic valve disorder Dr. Mckay Carotid stenosis Compression deformity of vertebra Congestive heart failure (HCC) COPD (chronic obstructive pulmonary disease) (HCC) 01/03/2013 Esophageal reflux Normal EGD 12/2012 H/O aortic valve replacement INR should be 2.5 to 3.5 High blood pressure Hyperlipidemia Impaired glucose tolerance Intrinsic asthma 06/[address] done per Dr. Mckay Migraine Myalgia and myositis, unspecified Other forms of migraine Parkinsonism (HCC) Thyroid nodule Unspecified essential hypertension PAST SURGICAL HISTORY Procedure Laterality Date ANTERIOR COLPORRAPHY RPR CYSTOCELE W/CYSTO 2001 w/ uterosacral suspension CARDIOVERSION [facility]- Spring 2019 CLOSURE SEMILUNAR VALVE AORTIC/PULM SUTURE/PATCH 2004 had aortic valve replacement w/ bovine valve COLONOSCOPY 05/08/2017 COLONOSCOPY FLX DX W/COLLJ SPEC WHEN PFRMD 01/15/2013 Colonoscopy COLSC FLX W/RMVL OF TUMOR POLYP LESION SNARE TQ 05/07/2017 Colonoscopy - cecal inflammatory polyps. Repeat in 5 yrs DISPLACEMENT THERAPY PROETZ TYPE x3 ESOPHAGOGASTRODUODENOSCOPY TRANSORAL DIAGNOSTIC 01/15/2013 EGD ESOPHAGOGASTRODUODENOSCOPY TRANSORAL DIAGNOSTIC 05/07/2017 EGD FOOT RIGHT OP SURGERY 05/05/2009 HEMORRHOIDECTOMY XTRNL 2/> COLUMN/GROUP LAPS VAGINAL HYSTERECTOMY UTERUS 250 GM/< 2002/2001 usvvs, enterocele repair,apr,lsc pvdr,cysto,spt LOW BACK DISK SURGERY 06/2011 OOPHORECTOMY PARTIAL/TOTAL UNI/BI PAST SURGICAL HISTORY OF 04/2012 Thyroid [id number] PAST SURGICAL HISTORY OF aug and september 2011 cataract removal PAST SURGICAL HISTORY OF 2013 aortic valve with On-X valve PERCUTANEOUS AORTIC VALVE REPLACEMENT 09/2013 POSTERIOR COLPORRHAPHY, REPAIR RECTOCELE 2001 SINUS SURGERY PROC UNLISTED [address] Styles ([place]), [address] Wood, 1 in [place] TONSILLECTOMY PRIMARY/SECONDARY <AGE 11 TOTAL ABDOMINAL HYSTERECT W/WO RMVL TUBE OVARY age 31 FAMILY HISTORY Problem Relation Age of Onset Heart Mother Heart Father Diabetes Sister Lipids Sister Diabetes Brother Hypertension Brother Lipids Brother Lipids Daughter other (Depression) Daughter GI Son Lipids Son Colon Cancer No Family History Social History Tobacco Use Smoking status: Never Smokeless tobacco: Never Tobacco comments: Father smoked in childhood home. Spouse non-smoker. Vaping Use Vaping Use: Never used Substance Use Topics Alcohol use: No Drug use: No Reviewed current medications, allergies, past medical history, surgical history, family history and social history today. REVIEW OF SYSTEMS All other reviewed and negative other than HPI. HEALTH MAINTENANCE: Reviewed health maintenance issues today and recommended the following in detail. RSV Vaccine(1 - 1-dose 60+ series) Never done Advance Directive Discussion due on 07/30/2023 Covid-19 Vaccine( season) due on 09/22/2023 VITALS: BP 110/58 Pulse 67 Wt 49.4 kg (109 lb) SpO2 94% BMI 21.29 kg/m Last 4 Encounter Wt Readings: Date: Wt: 01/02/2024 49.4 kg (109 lb) 07/18/2023 50.8 kg (112 lb) 06/27/2023 50.3 kg (110 lb 12.8 oz) 06/04/2023 0 kg () PHYSICAL EXAMINATION: General appearance: Well appearing, alert, in no acute distress, well-hydrated, well nourished. Skin: Skin color, texture, turgor normal, no suspicious rashes or lesions Head: Normocephalic, no masses, lesions, tenderness or abnormalities Eyes: Anicteric sclera. Pupils are equally round and reactive to light. Extraocular movements are intact. Ears: External ears normal, canals clear Nose/Sinuses: Nares normal, septum midline, mucosa normal, no drainage or sinus tenderness Oropharynx: Lips, mucosa, and tongue normal, teeth and gums normal, oropharynx normal Neck: Supple, no adenopathy; Lungs: coarse breath sounds. Moving air well. Oxygen in place. Overall is at baseline. Heart: RRR , gallop, or rubs. No ectopy Abdomen: Normal abdominal exam, Abdomen soft, non-tender. Bowel sounds normal. No masses, organomegaly Extremities: No deformities, edema, skin discoloration, clubbing or cyanosis. Good capillary refill. Musculoskeletal: No joint swelling, deformity, or tenderness ASSESSMENT/PLAN: 1. Chest pain, unspecified type - ICD9: 786.50, ICD10: R07.9 (primary diagnosis) - Red flags for re-assessment reviewed with patient in detail. - seeing [facility] in three weeks. To Er sooner if recurs. Copy of note and labs from previous to cardiology - XR CHEST 2V FRONTAL/LAT - ECG COMPLETE-nsr, no acute changes. Normal ekg 2. Parkinsonism, unspecified Parkinsonism type ([facility]) - ICD9: 332.0, ICD10: G20.C Per neuro. 3. Aortic valve stenosis with insufficiency, etiology of cardiac valve disease unspecified - ICD9: 424.1, ICD10: I35.2 - as above. 4. Heart failure, diastolic, chronic (HCC) - ICD9: 428.32, ICD10: I50.32 - no signs of decompensation. 5. History of aortic valve replacement - ICD9: V43.3, ICD10: Z95.2 - follows regularly for her inr. 6. Hyperlipidemia LDL goal <100 - ICD9: 272.4, ICD10: E78.5 - Controlled - Continue current medications 7. Paroxysmal atrial fibrillation (HCC) - ICD9: 427.31, ICD10: I48.0 - stable. - COMPLETE BLOOD COUNT AND DIFFERENTIAL - BASIC METABOLIC PANEL - THYROID STIMULATING HORMONE 8. Bronchiectasis without complication ([facility]) - ICD9: 494.0, ICD10: J47.9 - at baseline. Per pulmonary. 9. Chronic hypoxic respiratory failure, on home oxygen therapy ([facility]) - ICD9: 518.83, 799.02, V46.2, ICD10: J96.11, Z99.81 - stable. 10. Chronic obstructive pulmonary disease, unspecified COPD type ([facility]) - ICD9: 496, ICD10: J44.9 - stable. 11. Chronic sinusitis, unspecified location - ICD9: 473.9, ICD10: J32.9 - stable. 12. Gastroesophageal reflux disease without esophagitis - ICD9: 530.81, ICD10: K21.9 -no change. 13. Stage 3 chronic kidney disease, unspecified whether stage 3a or 3b CKD ([facility]) - ICD9: 585.3, ICD10: N18.30 - COMPLETE BLOOD COUNT AND DIFFERENTIAL - BASIC METABOLIC PANEL 14. Impaired glucose tolerance - ICD9: 790.22, ICD10: R73.02 - HEMOGLOBIN A1C 15. Compression deformity of vertebra - ICD9: 738.5, ICD10: M43.9 - no issueds. 16. Lewy body dementia with psychotic disturbance, unspecified dementia severity ([facility]) - ICD9: 331.82, 294.11, ICD10: G31.83, F02.82 - per neuro 17. 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 18. Bilateral carotid artery stenosis - ICD9: 433.10, 433.30, ICD10: I65.23 - just screened in 07/21 19. Urinary hesitancy - ICD9: 788.64, ICD10: R39.11 Check urine. - URINALYSIS, WITH MICROSCOPIC - ALBUMIN/CREATININE RATIO, URINE Kolby Kim MD RTO in six months documented in this encounter [facility] 12-28-2023 Telephone encounter Note Patient has been identified by name and date of : Yes Patient phones for refill(s): Requested Prescriptions Pending Prescriptions Disp Refills ferrous sulfate 325 mg (65 mg iron) tablet 180 tablet 1 Sig: Take 1 tablet by mouth two times a day with meals. Date of last office visit in primary care: 06/27/2023 Date of next office visit in primary care: 01/02/2024 Please advise. Thank you. Krista Ledesma LPN. [facility] 12-28-2023 Miscellaneous Notes Patient has been identified by name and date of : Yes Patient phones for refill(s): Requested Prescriptions Pending Prescriptions Disp Refills ferrous sulfate 325 mg (65 mg iron) tablet 180 tablet 1 Sig: Take 1 tablet by mouth two times a day with meals. Date of last office visit in primary care: 06/27/2023 Date of next office visit in primary care: 01/02/2024 Please advise. Thank you. Krista Ledesma LPN. documented in this encounter [facility] 12-25-2023 Telephone encounter Note Pat is calling Kolby Kim MD today with concern regarding Medication Request Disp Refills Start End ferrous sulfate 325 mg (65 mg iron) tablet 180 tablet 1 06/15/2023 12/12/2023 Sig: Take 1 tablet by mouth two times a day with meals. Sent to pharmacy as: ferrous sulfate 325 mg (65 mg iron) tablet Class: Normal [place]. Patient has been identified by name and birthdate. Duration of symptoms: N/A Person calling: spouse: Trent Call patient at: at home [phone] (home) [phone] (cell) Was an appointment scheduled: No Closing statement: Results or non-symptom based questions: Thank you for calling [facility], your call will be returned within the next business day. Lenore Santoro [facility] 12-25-2023 Miscellaneous Notes Pat is calling Kolby Kim MD today with concern regarding Medication Request Disp Refills Start End ferrous sulfate 325 mg (65 mg iron) tablet 180 tablet 1 06/15/2023 12/12/2023 Sig: Take 1 tablet by mouth two times a day with meals. Sent to pharmacy as: ferrous sulfate 325 mg (65 mg iron) tablet Class: Normal [facility]. Patient has been identified by name and birthdate. Duration of symptoms: N/A Person calling: spouse: Trent Call patient at: at home [phone] (home) [phone] (cell) Was an appointment scheduled: No Closing statement: Results or non-symptom based questions: Thank you for calling [facility], your call will be returned within the next business day. Lenore Santoro documented in this encounter [facility] 12-25-2023 Telephone encounter Note Patient has been identified by name and date of : Yes, Provider Dr. Callaway Date 12-25-23 Time 9:13 am Spouse phones for refill(s): Requested Prescriptions Pending Prescriptions Disp Refills furosemide (LASIX) 40 mg tablet 90 tablet 1 Sig: Take 1 tablet by mouth once daily. Date of last office visit in primary care: 06/27/2023 Date of next office visit in primary care: 01/02/2024 Please advise. Thank you. Lenore Santoro. [facility] 12-25-2023 Miscellaneous Notes Patient has been identified by name and date of : Yes, Provider Dr. Callaway Date 12-25-23 Time 9:13 am Spouse phones for refill(s): Requested Prescriptions Pending Prescriptions Disp Refills furosemide (LASIX) 40 mg tablet 90 tablet 1 Sig: Take 1 tablet by mouth once daily. Date of last office visit in primary care: 06/27/2023 Date of next office visit in primary care: 01/02/2024 Please advise. Thank you. Lenore Santoro. documented in this encounter [facility] 12-19-2023 History of Present illness Narrative [facility] Care [facility] Telephonic Outreach Provider Action/FYI Patient started on Aricept 2.5 mg and was to increase to 5 mg if tolerating well. Per spouse, patient refuses to take the full amount. Per patient had an episode of arm pain radiating into neck., per patient episode resolved after taking a NTG. This is the first time patient has ever taken a NTG. Per spouse, unsure if patient had actual chest pain. Patient thinks her spouse is some random man present. Patient has had no further symptoms. Contact made with patient: Yes Patient identified by Name and Date of . Discussed care with patient. Contacted for Chronic Disease Care Path: Congestive Heart Failure Health maintenance addressed this outreach: Primary Care Provider visit every six (6) months Cardiology visits every Six (6) months Education provided this outreach: Your Guide to Managing Heart Failure: Topics -- Heart Failure Zones Chronic Obstructive Pulmonary Disease Health maintenance addressed this outreach: Primary Care Provider visit every six (6) months Pulmonary Annual Visit Education provided this outreach: COPD Core Education. Topics discussed: COPD Zones / Action Plan GOALS Disease specific goals updated: Yes Patient stated goal(s) updated: Yes Needs Assessment updated this outreach: No Medications Do you have any questions about taking your medication or which medications you should be taking? No Do you need any medication refills at this time, including any of the medications you might take only when needed? No Social It can be normal to feel anxious or down during a time like this. Would you like to talk to a mental health professional about how you have been feeling? No Care Gaps Addressed this Outreach: No Symptoms Are you experiencing any new or worsening symptoms you need to talk about today? No Based on technical program manager, the following disposition is advised: Other Call Dispositions No action needed Program Disposition Patient dispositioned from Program today: No Becca Fenton RN December 19, 2023 10:52 AM documented in this encounter [facility] 2023 History of Present illness Narrative Agree with anticoagulation recommendations patient had inr completed at [facility] patients inr is 2.7(patients inr range is 2.5-3.5) patient is currently taking 5mg Tues,Thurs and 3mg all other days patients last dose change was on 10/04/23 due to a low level of 2.3 (dose at that time was 5mg Thurs and 3mg all other days) patient has had no changes in medication and no missed doses and no change in diet Advised patient to continue on the same dose(s) and that they would only be contacted regarding dosage and follow up instructions after review with provider, if a change is needed. Written instructions given and patient verbalized understanding. Presently scheduled in 3 weeks (01/02/24 - patient has appt with pcp this day) for follow up INR. documented in this encounter [facility] 12-04-2023 History of Present illness Narrative [facility] Telephonic Outreach Provider Action/FYI Patient started on low dose Aricept yesterday to help with hallucinations, if medication is tolerated well, can increase the dose to 5 mg. Contact made with patient: Yes Patient identified by Name and Date of . Discussed care with spouse. Contacted for Chronic Disease Care Path: Congestive Heart Failure Health maintenance addressed this outreach: Primary Care Provider visit every six (6) months Cardiology visits every Six (6) months Education provided this outreach: Your Guide to Managing Heart Failure: Topics -- Heart Failure Zones and Activity Guidelines / Exercise Chronic Obstructive Pulmonary Disease Health maintenance addressed this outreach: Primary Care Provider visit every six (6) months Pulmonary Annual Visit Education provided this outreach: COPD Core Education. Topics discussed: COPD Zones / Action Plan GOALS Disease specific goals updated: Yes Patient stated goal(s) updated: Yes Needs Assessment updated this outreach: No Medications Do you have any questions about taking your medication or which medications you should be taking? No Do you need any medication refills at this time, including any of the medications you might take only when needed? No Social It can be normal to feel anxious or down during a time like this. Would you like to talk to a mental health professional about how you have been feeling? No Care Gaps Addressed this Outreach: No Symptoms Are you experiencing any new or worsening symptoms you need to talk about today? No Based on technical program manager, the following disposition is advised: Other Call Dispositions No action needed Program Disposition Patient dispositioned from Program today: No Becca Fenton RN December 04, 2023 11:09 AM documented in this encounter [facility] 12-03-2023 Instructions Shawn Santana MD - 12/03/2023 11:04 AM EDT Lets start a medicine called donepezil AKA Aricept. It is used to try to help improve memory and reduce hallucinations. Start with 1/2 pill once a day for a couple weeks to make sure you tolerate it, and if so, you can increase to the full pill once a day thereafter. Watch out for diarrhea, decreased appetite, nightmares, or heart rate changes. If you feel sleepy with it you can take it at bedtime, but bedtime dosing may increase risk for nightmares from it. documented in this encounter [facility] 12-03-2023 History of Present illness Narrative FOLLOW UP NOTE Subjective Elza Chu is a 77 year old female who presents for follow up. 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 Her examination demonstrates mild parkinsonism and signs of right lumbar radiculopathy. Agree with diagnosis of Lewy Body Dementia. Explained patients with this can have parkinsonism but that treatment may worsen hallucinations. Her parkinsonism is mild enough that I wouldn't recommend treating it at this time. Encouraged physical activity. Rivastigmine patch may help with hallucinations as well as for cognition, they will watch closely with previous side effects to donepezil. The RLE symptoms which are contributing to her gait likely due to lumbar radiculopathy. She had injections for this in the past. Would not suggest surgical evaluation, but could do physical therapy or see spine medicine specialist for injections / other treatments. 11/2022 try to get patch again. HPI Current Issues 1. LBD - Still with the daily delusions / hallucinations - CAPGRAS about house and - Hallucinations / delusions worse, CAPGRAS of and house - Was given diazepam by palliative care, 2 mg made her too sleepy so taking 1 mg BID then increase 1 mg AM 2 mg PM due to anxiety. - Sleep is usually good - Some difficulty using hands to do things like tying shoes / buttoning buttons, does them slowly 2. Pain - In a wheelchair today as legs weak / painful - Hasn't been seeing pain management recently Current Outpatient Medications Medication Sig Dispense Refill PARoxetine (PAXIL) 30 mg tablet Take 1 tablet by mouth once daily. 90 tablet 3 warfarin (COUMADIN) 3 mg tablet 2.5 mg MW and 4.5 mg all other days or as directed 90 tablet 3 montelukast (SINGULAIR) 10 mg tablet Take 1 tablet by mouth daily at bedtime. 90 tablet 3 metoprolol succinate ER (TOPROL XL) 100 mg Take 1 tablet by mouth once daily. 90 tablet 1 buPROPion XL (WELLBUTRIN XL) 150 mg 24 hr tablet Take 1 tablet by mouth once daily. 90 tablet 3 loratadine (CLARITIN) 10 mg tablet Take 10 mg by mouth once daily. ergocalciferol 50,000 unit capsule (VITAMIN D2, DRISDOL) Take 1 capsule by mouth every other week. 12 capsule 1 Ipratropium [place] (ATROVENT) 21 mcg (0.03 %) nasal spray ferrous sulfate 325 mg (65 mg iron) tablet Take 1 tablet by mouth two times a day with meals. 180 tablet 1 furosemide (LASIX) 40 mg tablet Take 1 tablet by mouth once daily. 90 tablet 1 potassium chloride ER (KLOR-CON) 20 mEq tablet Take 1 tablet by mouth once daily. 90 tablet 3 diazePAM (VALIUM) 2 mg tablet Take by mouth twice daily. Take 1 tablet in the AM and 1/2-1 tablet in the evening. warfarin (COUMADIN) 2.5 mg tablet 2.5 mg daily or as directed 90 tablet 3 albuterol (PROVENTIL) 2.5 mg /3 mL (0.083 %) nebulizer solution Use 3 mL via nebulizer every 6 hours as needed for wheezing/shortness of breath. DX: J45.40 Hx of moderate persistent Asthma [address] (PROTONIX) 40 mg tablet Take 1 tablet by mouth twice daily. 180 tablet 3 nitroglycerin sublingual (NITROQUICK) 0.4 mg SL tablet amLODIPine (NORVASC) 2.5 mg tablet Take 1 tablet by mouth once daily. amiodarone (PACERONE) 200 mg tablet Take 100 mg by mouth once daily. albuterol HFA (PROAIR HFA) 90 mcg/actuation inhaler Inhale 2 Puffs as instructed every 4 hours as needed. 3 Inhaler 0 acetaminophen (TYLENOL EXTRA STRENGTH) 500 mg tablet Take 1 tablet by mouth every 4 hours as needed for Pain. RANGE FREQ? 0 Nebulizer NEBULIZER FOR HOME USE and necessary supplies. DX: Hypoxemia, Pneumonia and Hemoptisis 1 Each 0 pravastatin (PRAVACHOL) 80 mg tablet TAKE 1 TABLET BY MOUTH ONCE DAILY 90 tablet 3 aspirin 81 mg chewable tablet Take 2 tablets by mouth once daily. 0 ezetimibe(ZETIA 10 MG TAB) Take one(1) tablet daily. 0 No current facility-administered medications for this visit. REVIEW OF SYSTEMS Her ROS was positive for that mentioned in the HPI. Otherwise a 10-point ROS was completed and was negative. Objective OBJECTIVE 12/03/23 1024 BP: 118/71 Pulse: 60 SpO2: 94% Height: 152.4 cm (5') General: General Appearance: Well appearing, alert, in no acute distress, well-hydrated, well nourished. Head: Normocephalic Neck: Supple Heart: RRR Neurologic Exam: Mental Status: She is alert. Disoriented to time. Attention impaired to months backwards. Recall of her history is impaired. Affect is restricted. Cranial Nerves: Extraocular movements show full and smooth pursuits. No nystagmus. Visual godwin are full to confrontation. Facial activation is symmetric. Hearing is intact to conversation. There is mild hypomimia. There is mild hypophonia. There is no dysarthria. Tongue is midline. Palate elevates symmetrically. Shoulder shrug is normal. Motor: Muscle bulk is normal. Mild RLE weakness. Mild R>LUE bradykinesia. Minimal rigidity. Subtle right hand tremor. Coordination: Finger to nose is smooth without ataxia. Gait/station: In wheelchair today DATA REVIEW Actual films/image/tracing reviewed and summarized as follows: n/a Old records reviewed and summarized as follows: CT L-spine 09/19/22 multilevel degenerative changes comparable to prior exam CT L-spine 09/18/21 severe degenerative changes / compression deformities. Reviewed referral records from Dr. Sanchez and prior neuro records from Dr. Monreal Assessment/Plan ASSESSMENT & PLAN: Elza Chu is a 77 year old right-handed female with a history of Lewy Body Dementia, mechanical AVR on coumadin, and depression amongst other conditions who presents for follow up of parkinsonism in LBD. Her examination demonstrates cognitive impairment and mild parkinsonism. 1. LBD - Discussed medications for hallucinations and decided to retry donepezil at low dose 2.5 mg daily and If tolerated fo to 5 mg daily. - Also discussed nuplazid and seroquel but concerned about boxed warning - Gave info on geripsych though explained that at this point would be offering similar medications - Continue supportive care Follow-up: 4 months Risks & Side Effects of Newly Prescribed Medication, Discussed with Patient: YES Shawn Santana MD [facility] Neu[facility] documented in this encounter [facility] 11-22-2023 Telephone encounter Note Patient has been identified by name and date of : Yes Last office visit in this department: Visit date not found RX INSTRUCTIONS: Patient aware RX will be sent to pharmacy. No need to notify patient. Patient phones requesting refills as follows: last appt 06/21 next appt 01/02/24 Requested Prescriptions Pending Prescriptions Disp Refills PARoxetine (PAXIL) 30 mg tablet 90 tablet 3 Sig: Take 1 tablet by mouth once daily. Please review and advise. Monique Santoro [facility] 11-22-2023 Miscellaneous Notes Patient has been identified by name and date of : Yes Last office visit in this department: Visit date not found RX INSTRUCTIONS: Patient aware RX will be sent to pharmacy. No need to notify patient. Patient phones requesting refills as follows: last appt 06/21 next appt 01/02/24 Requested Prescriptions Pending Prescriptions Disp Refills PARoxetine (PAXIL) 30 mg tablet 90 tablet 3 Sig: Take 1 tablet by mouth once daily. Please review and advise. Monique Santoro documented in this encounter [facility] 11-20-2023 History of Present illness Narrative [facility] Care Path Telephonic Outreach Provider Amanda/DOREEN Per spouse, he recently attended an Alzheimer's support group meeting. Found ti to be very helpful. Contact made with patient: Yes Patient identified by Name and Date of . Discussed care with patient and spouse. Contacted for Chronic Disease Care Path: Congestive Heart Failure Health maintenance addressed this outreach: Primary Care Provider visit every six (6) months Cardiology visits every Six (6) months Education provided this outreach: Your Guide to Managing Heart Failure: Topics -- Activity Guidelines / Exercise Chronic Obstructive Pulmonary Disease Health maintenance addressed this outreach: Primary Care Provider visit every six (6) months Pulmonary Annual Visit Education provided this outreach: COPD Core Education. Topics discussed: Meter Dose Inhaler / How to Use GOALS Disease specific goals updated: Yes Patient stated goal(s) updated: Yes Needs Assessment updated this outreach: No Medications Do you have any questions about taking your medication or which medications you should be taking? No Do you need any medication refills at this time, including any of the medications you might take only when needed? No Social It can be normal to feel anxious or down during a time like this. Would you like to talk to a mental health professional about how you have been feeling? No Care Gaps Addressed this Outreach: No Symptoms Are you experiencing any new or worsening symptoms you need to talk about today? No Based on technical program manager, the following disposition is advised: Other Call Dispositions No action needed Program Disposition Patient dispositioned from Program today: No Becca Fenton RN November 20, 2023 12:25 PM documented in this encounter [facility] 11-15-2023 History of Present illness Narrative agree patient had inr completed at [facility] patients inr is 2.8 (patients inr range is 2.5-3.5) patient is currently taking 5mg Tues,Thurs and 3mg all other days patients last dose change was on 10/04/23 due to a low level of 2.3 (dose at that time was 5mg Thurs and 3mg all other days) patient has had no changes in mediation and no missed doses and no change in diet Advised patient to continue on the same dose(s) and that they would only be contacted regarding dosage and follow up instructions after review with provider, if a change is needed. Written instructions given and patient verbalized understanding. Presently scheduled in 4 weeks (12/13/23) for follow up INR. documented in this encounter [facility] 11-02-2023 History of Present illness Narrative CDM Care Path Telephonic Outreach Provider Action/FYI Contact made with patient: Yes Patient identified by Name and Date of . Discussed care with patient and spouse. Patient was confused during conversation. States that she is not living at home, is in a small room and is not with her who is in the room listening to conversation. Per spouse confusion is more constant. Number given to spouse to call the Alzheimer's association that services their county. Contacted for Chronic Disease Care Path: Congestive Heart Failure Health maintenance addressed this outreach: Primary Care Provider visit every six (6) months Cardiology visits every Six (6) months Education provided this outreach: Your Guide to Managing Heart Failure: Topics -- Activity Guidelines / Exercise Chronic Obstructive Pulmonary Disease Health maintenance addressed this outreach: Primary Care Provider visit every six (6) months Pulmonary Annual Visit Education provided this outreach: COPD Core Education. Topics discussed: Meter Dose Inhaler / How to Use GOALS Disease specific goals updated: Yes Patient stated goal(s) updated: Yes Needs Assessment updated this outreach: No Medications Do you have any questions about taking your medication or which medications you should be taking? No Do you need any medication refills at this time, including any of the medications you might take only when needed? No Social It can be normal to feel anxious or down during a time like this. Would you like to talk to a mental health professional about how you have been feeling? No Care Gaps Addressed this Outreach: No Symptoms Are you experiencing any new or worsening symptoms you need to talk about today? No Based on technical program manager, the following disposition is advised: Other Call Dispositions No action needed Program Disposition Patient dispositioned from Program today: No Becca Fenton RN November 02, 2023 1:52 PM documented in this encounter [facility] 10-19-2023 Miscellaneous Notes Warfarin RX renewed Pharmacy verified in [facility] Patient has been identified by name and date of : Yes Patient aware RX will be sent to pharmacy. No need to notify patient. Spouse phones for refill(s): Requested Prescriptions Pending Prescriptions Disp Refills warfarin (COUMADIN) 3 mg tablet 90 tablet 3 Si.5 mg MW and 4.5 mg all other days or as directed Date of last office visit : 06/27/2023 Date of next office visit : 01/02/2024 Last 2 Encounter Wt Readings: Date: Wt: 07/18/2023 50.8 kg (112 lb) 06/27/2023 50.3 kg (110 lb 12.8 oz) Not applicable Please advise. Talia Cat Pss documented in this encounter [facility] 10-18-2023 Nurse Note Agree with recommendations. Suzanne Bennett APRN.SODA TESTER documented in this encounter [facility] 10-18-2023 History of Present illness Narrative patient had inr completed at [facility] patients inr is 2.8 (patients inr range is 2.5-3.5) patient is currently taking 5mg Tues,Thurs and 3mg all other days patients last dose change was on 10/04/23 due to a low level of 2.3 (dose at that time was 5mg Thurs and 3mg all other days) patient has had no changes in medication and no missed doses and no change in diet Advised patient to continue on the same dose(s) and that they would only be contacted regarding dosage and follow up instructions after review with provider, if a change is needed. Written instructions given and patient verbalized understanding. Presently scheduled in 4 weeks (11/15/23) for follow up INR. documented in this encounter [facility] 10-17-2023 History of Present illness Narrative CD Care Path Telephonic Outreach Provider Action/FYI Patient has increasing confusion as the day progresses. Mornings per spouse are the best times. Contact made with patient: Yes Patient identified by Name and Date of . Discussed care with patient and spouse. Contacted for Chronic Disease Care Path: Congestive Heart Failure Health maintenance addressed this outreach: Primary Care Provider visit every six (6) months Cardiology visits every Six (6) months Education provided this outreach: Your Guide to Managing Heart Failure: Topics -- Keeping Track of Weight Chronic Obstructive Pulmonary Disease Health maintenance addressed this outreach: Primary Care Provider visit every six (6) months Pulmonary Annual Visit Education provided this outreach: COPD Core Education. Topics discussed: Meter Dose Inhaler / How to Use GOALS Disease specific goals updated: Yes Patient stated goal(s) updated: Yes Needs Assessment updated this outreach: No Medications Do you have any questions about taking your medication or which medications you should be taking? No Do you need any medication refills at this time, including any of the medications you might take only when needed? No Social It can be normal to feel anxious or down during a time like this. Would you like to talk to a mental health professional about how you have been feeling? No Care Gaps Addressed this Outreach: No Symptoms Are you experiencing any new or worsening symptoms you need to talk about today? No Based on technical program manager, the following disposition is advised: Other Call Dispositions No action needed Program Disposition Patient dispositioned from Program today: No Becca Fenton RN October 17, 2023 11:20 AM [facility] Care Path Telephonic Outreach Provider Action/FYI Contact made with patient: No, Left message Becca Fenton RN October 16, 2023 12:19 PM documented in this encounter [facility] 10-08-2023 History of Present illness Narrative I am not sure if this was addressed or not. Please review. I would agree with recommendations. Thanks, Michael Harrell PA-C patient had inr completed at [facility] patients inr is 2.3 (patients inr range is 2.5-3.5) patient is currently taking 5mg Thurs and 3mg all other days patients last dose change was on 09/20/23 due to a low level of 1.8 (dose at that time was 3mg daily) patient has had no changes in medication except for coumadin and no missed doses and no change in diet FYI - machine come up with a C meaing either hct is out of range or cells were damaged due to pressure applied to get sample. 06/30 patient H/H was normal and sample was very hard to obtain as it took 2 tries to get. patient was not sent to lab for H/H due to no changes in bleeding and bruising. If patient needs H/H can call to come in and have completed recommend: patient change coumadin to 5mg Tues,Thurs and 3mg all other days and recheck inr in 2 weeks patient has been scheduled for a 2 week follow up inr on 10/18/23 please review and advise on recommendation documented in this encounter [facility] 10-08-2023 Miscellaneous Notes Pharmacy verified in [facility] Patient has been identified by name and date of : Yes Patient aware RX will be sent to pharmacy. No need to notify patient. Spouse phones for refill(s): Requested Prescriptions Pending Prescriptions Disp Refills montelukast (SINGULAIR) 10 mg tablet 90 tablet 3 Sig: Take 1 tablet by mouth daily at bedtime. Date of last office visit : 06/27/2023 Date of next office visit : 01/02/2024 Last 2 Encounter Wt Readings: Date: Wt: 07/18/2023 50.8 kg (112 lb) 06/27/2023 50.3 kg (110 lb 12.8 oz) Not applicable Please advise. Talia Cat Pss documented in this encounter [facility] 09-27-2023 History of Present illness Narrative CDM Care Path Telephonic Outreach Provider Action/FYI Patient is confused today. States that she is living in a home with disabled children. Her no longer lives with her. Spoke to the health rn primary care that works with patient two days a week, she reports that patient still lives at home with spouse. Contact made with patient: Yes Patient identified by Name and Date of . Discussed care with patient. Contacted for Chronic Disease Care Path: Congestive Heart Failure Health maintenance addressed this outreach: Primary Care Provider visit every six (6) months Cardiology visits every Six (6) months Education provided this outreach: Your Guide to Managing Heart Failure: Topics -- Keeping Track of Weight and Activity Guidelines / Exercise Chronic Obstructive Pulmonary Disease Health maintenance addressed this outreach: Primary Care Provider visit every six (6) months Pulmonary Annual Visit Education provided this outreach: COPD Core Education. Topics discussed: Meter Dose Inhaler / How to Use GOALS Disease specific goals updated: Yes Patient stated goal(s) updated: Yes Needs Assessment updated this outreach: No Medications Do you have any questions about taking your medication or which medications you should be taking? No Do you need any medication refills at this time, including any of the medications you might take only when needed? No Social It can be normal to feel anxious or down during a time like this. Would you like to talk to a mental health professional about how you have been feeling? No Care Gaps Addressed this Outreach: No Symptoms Are you experiencing any new or worsening symptoms you need to talk about today? No Based on technical program manager, the following disposition is advised: Other Call Dispositions No action needed Program Disposition Patient dispositioned from Program today: No Becca Fenton RN September 27, 2023 4:34 PM Program Disposition Patient dispositioned from Program today: No Becca Fenton RN September 27, 2023 4:34 PM documented in this encounter [facility] 09-20-2023 History of Present illness Narrative PATIENT NOTIFIED OF INFORMATION Agree with rec, 5mg TH, 3mg all other days, recheck 2 weeks ThanksMichael PA-C patient had inr completed at [facility] patients inr is 1.8 (patients inr range is 2.5-3.5) patient is currently taking 3mg daily patients last dose change was on 09/11/23 due to a high level of 5.6 (dose at that time was 3mg Mon,Wed,Fri and 5mg all other days) patient has had no changes in medication and no uninstructed missed doses and no change in diet recommend: patient change coumadin dose to 5mg Thurs and 3mg all other days and recheck inr in 2 weeks patient has been scheduled for a 2 week follow up inr on 10/04/23 please review and advise on recommendation documented in this encounter [facility] 09-13-2023 History of Present illness Narrative Pt notified. Ivis Valdivia Ma I agree with the advice given, restart coumadin today with 3mg daily and recheck inr in 1 week Dandre Ovalle MD patient had inr completed at [facility] patients inr is 1.5 (patients inr range is 2.5-3.5) patient is currently holding 3mg Mon,Wed,Fri and 5mg all other days due to a high level of 5.6 patients last dose change was on 05/01/23 due to a low level of 2.3 (dose at that time was 5mg Tues,Thurs,Sat and 3mg all other days) patient has had no changes in medication except for coumadin and no change in diet recommend: patient restart coumadin today with 3mg daily and recheck inr in 1 week patient has been scheduled for a 1 week follow up inr on 09/20/23 please review and advise on recommendation documented in this encounter [facility] 09-13-2023 History of Present illness Narrative yCDM Care Path Telephonic Outreach Provider Action/FYI Contact made with patient: Yes Patient identified by Name and Date of . Discussed care with spouse. Contacted for Chronic Disease Care Path: Congestive Heart Failure Health maintenance addressed this outreach: Primary Care Provider visit every six (6) months Cardiology visits every Six (6) months Education provided this outreach: Your Guide to Managing Heart Failure: Topics -- Activity Guidelines / Exercise Chronic Obstructive Pulmonary Disease Health maintenance addressed this outreach: Primary Care Provider visit every six (6) months Pulmonary Annual Visit Education provided this outreach: COPD Core Education. Topics discussed: COPD Zones / Action Plan GOALS Disease specific goals updated: No Patient stated goal(s) updated: No Needs Assessment updated this outreach: No Medications Do you have any questions about taking your medication or which medications you should be taking? No Do you need any medication refills at this time, including any of the medications you might take only when needed? No Social It can be normal to feel anxious or down during a time like this. Would you like to talk to a mental health professional about how you have been feeling? No Care Gaps Addressed this Outreach: No Symptoms Are you experiencing any new or worsening symptoms you need to talk about today? No Based on technical program manager, the following disposition is advised: Other Call Dispositions No action needed Program Disposition Patient dispositioned from Program today: No Becca Fenton RN September 13, 2023 11:43 AM Program Disposition Patient dispositioned from Program today: No Becca Fenton RN September 13, 2023 11:43 AM documented in this encounter [facility] 09-11-2023 History of Present illness Narrative agree patient had inr completed at [facility] patients inr is 5.6 (patients inr range is 2.5-3.5) patient is currently taking 3mg Mon,Wed,Fri and 5mg all other days patients last dose change was on 05/01/23 due to a low level of 2.3 (dose at that time was 5mg Tu,,Sat and 3mg all other days) patient has had no changes in medication and no missed doses and no change in diet FYI - machine come up with a C meaing either hgb is out of range or cells were damaged due to pressure applied to get sample. 06/30 patient H/H was normal and sample was very hard to obtain as it took 2 tries to get. patient was not sent to lab for H/H due to no changes in bleeding and bruising, H/H was just normal 2 months ago and it was hard to get sample. If patient needs H/H can call to come in and have completed recommend: patient hold coumadin for 2 days and recheck on patient has been scheduled for an inr follow up in 2 days on 09/13/23 please review and advise on recommendation documented in this encounter [facility] 09-07-2023 History of Present illness Narrative [facility] Care Path Telephonic Outreach Provider Action/FYI Contact made with patient: Yes Patient identified by Name and Date of . Discussed care with patient and spouse. Contacted for Chronic Disease Care Path: Congestive Heart Failure Health maintenance addressed this outreach: Primary Care Provider visit every six (6) months Cardiology visits every Six (6) months Education provided this outreach: Your Guide to Managing Heart Failure: Topics -- Activity Guidelines / Exercise Chronic Obstructive Pulmonary Disease Health maintenance addressed this outreach: Primary Care Provider visit every six (6) months Pulmonary Annual Visit Education provided this outreach: COPD Core Education. Topics discussed: COPD Zones / Action Plan and Understanding COPD GOALS Disease specific goals updated: No Patient stated goal(s) updated: No Needs Assessment updated this outreach: No Medications Do you have any questions about taking your medication or which medications you should be taking? No Do you need any medication refills at this time, including any of the medications you might take only when needed? No Social It can be normal to feel anxious or down during a time like this. Would you like to talk to a mental health professional about how you have been feeling? No Care Gaps Addressed this Outreach: No Symptoms Are you experiencing any new or worsening symptoms you need to talk about today? No Based on technical program manager, the following disposition is advised: Other Call Dispositions No action needed Program Disposition Patient dispositioned from Program today: No Becca Fenton RN September 07, 2023 12:08 PM Program Disposition Patient dispositioned from Program today: No Becca Fenton RN September 07, 2023 12:08 PM documented in this encounter [facility] 08-31-2023 History of Present illness Narrative CDM ENROLLMENT - copd, ckd, chf Provider Action / FYI: - per spouse, pt is unsteady at times- does use a walker and has a wheelchair if long distances are required - does have an aide for 2 hours twice a week - prefers to be called after 10 am - confirmed HH phone number and access with spouse Contact Made with Patient: Yes Patient identified by name and date of . Discussed care with spouse. Patient contacted regarding Disease Specific Care Path: Congestive Heart Failure Chronic Obstructive Pulmonary Disease Enrollment Status: Enrolled as a Check-up Needs Assessment Fall risk completed: Yes Was risk identified: Yes - See FYI box. Activities of Daily Living (ADLs) completed: Yes Was risk identified: Yes - See FYI box. SDOH updated (Include a Social Work referral for all new enrollments) (Complete the following domains: Financial, Housing, Transportation, Food, Utilities, and Smoking) : Yes Was risk identified: Yes - See FYI box. Medications Do you have any questions about taking your medication or which medications you should be taking? No Do you need any medication refills at this time, including any of the medications you might take only when needed? No Social It can be normal to feel anxious or down during a time like this. Would you like to talk to a mental health professional about how you have been feeling? No Goals Disease specific goals updated: No Patient stated goal(s) updated: Yes Symptoms Are you experiencing any new or worsening symptoms you need to talk about today? No Based on technical program manager, the following disposition is advised: Other Call Dispositions No action needed Tanesha Walker RN August 31, 2023 2:32 PM CDM ENROLLMENT - copd, ckd, chf Provider Action / FYI: Contact Made with Patient: No, unable to leave a message. Will reattempt the call. Tanesha Walker RN August 30, 2023 1:27 PM CDM ENROLLMENT - copd, ckd, chf Provider Action / FYI: Contact Made with Patient: No, unable to leave a message. Will reattempt the call. Tanesha Walker RN August 29, 2023 2:14 PM documented in this encounter [facility] 06-29-2023 Miscellaneous Notes Phone lab client services, unsure why it was not collected. Order was released, but not collected. Will need new order and pt will need redrawn. Please place new order. Pt aware of lab results and that she will need to come back in for CBC. She notified understanding. Je[facility] Morgan Labs are stable. Make sure eating plenty of protein. Her cbc was ordered at same time. Was it drawn? documented in this encounter [facility] 06-27-2023 History of Present illness Narrative Patient presents with: Follow Up HPI: Patient presents today for office visit for follow up. Saw Pulmonary last month. Started on two new inhalers. Unsure of names. Breathing is better. No new or worsening shortness of breath Some wheezing occasionally Wearing oxygen continuously. HTN: Monitors BP occasionally Denies chest pain Some palpitations Denies syncope Edema to B/L ankles and legs occasionally. Continues on Furosemide HLD: Continues on Pravastatin Follows with Cardiology. Sees Dr Johnson, pulmonary Seeing palliative care Has seen neurology. He had mentioned seeing geropsyc but they are comfortable with things at home. Still walking in the home. No falls. In wheelchair today. Anxiety is still present. Palliative is giving diazepem and treating. is providing most of her care. Managing inr closely. Will do labs while here. Weight is relatively stable. Seeing gi due to dysphagia. MEDICATIONS: Current Outpatient Medications Medication Sig Ipratropium [place] (ATROVENT) 21 mcg (0.03 %) nasal spray ferrous sulfate 325 mg (65 mg iron) tablet Take 1 tablet by mouth two times a day with meals. furosemide (LASIX) 40 mg tablet Take 1 tablet by mouth once daily. potassium chloride ER (KLOR-CON) 20 mEq tablet Take 1 tablet by mouth once daily. diazePAM (VALIUM) 2 mg tablet Take by mouth twice daily. Take 1 tablet in the AM and 1/2-1 tablet in the evening. warfarin (COUMADIN) 2.5 mg tablet 2.5 mg daily or as directed albuterol (PROVENTIL) 2.5 mg /3 mL (0.083 %) nebulizer solution Use 3 mL via nebulizer every 6 hours as needed for wheezing/shortness of breath. DX: J45.40 Hx of moderate persistent Asthma metoprolol succinate ER (TOPROL XL) 100 mg Take 1 tablet by mouth once daily. pantoprazole DR (PROTONIX) 40 mg tablet Take 1 tablet by mouth twice daily. PARoxetine (PAXIL) 30 mg tablet Take 1 tablet by mouth once daily. nitroglycerin sublingual (NITROQUICK) 0.4 mg SL tablet DISSOLVE ONE TABLET UNDER THE TONGUE EVERY 5 MINUTES NEEDED FOR CARDIAC/CHEST PAIN amLODIPine (NORVASC) 2.5 mg tablet Take 1 tablet by mouth once daily. ergocalciferol 50,000 unit capsule (VITAMIN D2, DRISDOL) Take 1 capsule by mouth every other week. montelukast (SINGULAIR) 10 mg tablet Take 1 tablet by mouth daily at bedtime. buPROPion XL (WELLBUTRIN XL) 150 mg 24 hr tablet Take 1 tablet by mouth once daily. warfarin (COUMADIN) 3 mg tablet 2.5 mg MW and 4.5 mg all other days or as directed (Patient taking differently: 2.5 mg or as directed) amiodarone (PACERONE) 200 mg tablet Take 100 mg by mouth once daily. albuterol HFA (PROAIR HFA) 90 mcg/actuation inhaler Inhale 2 Puffs as instructed every 4 hours as needed. acetaminophen (TYLENOL EXTRA STRENGTH) 500 mg tablet Take 1 tablet by mouth every 4 hours as needed for Pain. RANGE FREQ? Nebulizer NEBULIZER FOR HOME USE and necessary supplies. DX: Hypoxemia, Pneumonia and Hemoptisis pravastatin (PRAVACHOL) 80 mg tablet TAKE 1 TABLET BY MOUTH ONCE DAILY aspirin 81 mg chewable tablet Take 2 tablets by mouth once daily. ezetimibe(ZETIA 10 MG TAB) Take one(1) tablet daily. No current facility-administered medications for this visit. ALLERGIES: ALLERGIES Allergen Reactions Adhesive Rash Blistering at site of application. Dextromethorphan Other: See Comments, Mental Status Change Risperidone Other: See Comments Sulfa (Sulfonamide * Other: See Comments Renal dysfunction. Childhood reaction. Generalized swelling Celebrex [Celecoxib] Other: See Comments Migraine headache. Aricept [Donepezil] Myalgia muscle pain and difficulty walking Compazine [Prochlor* Other: See Comments low BP Crestor [Rosuvastat* GI Upset Gabapentin Intolerance Confusion, when coupled with norco Lipitor [Atorvastat* Myalgia Lisinopril Cough No Latex Allergy [O* Oxycodone Itching Penicillins Other: See Comments Heart palpitations. No rash or itch. Can take cephalosporins Prozac [Fluoxetine * Other: See Comments hallucinating Ultram [Tramadol Hc* Itching Codeine Itching PAST MEDICAL HISTORY Diagnosis Date Adjustment disorder with depressed mood Aortic valve disorder Dr. Mckay Carotid stenosis Compression deformity of vertebra Congestive heart failure (HCC) COPD (chronic obstructive pulmonary disease) (HCC) 01/03/2013 Esophageal reflux Normal EGD 12/2012 H/O aortic valve replacement INR should be 2.5 to 3.5 High blood pressure Hyperlipidemia Impaired glucose tolerance Intrinsic asthma 06/[address] done per Dr. Mckay Migraine Myalgia and myositis, unspecified Other forms of migraine Parkinsonism Thyroid nodule Unspecified essential hypertension PAST SURGICAL HISTORY Procedure Laterality Date ANTERIOR COLPORRAPHY RPR CYSTOCELE W/CYSTO 2001 w/ uterosacral suspension CARDIOVERSION [facility]- Spring 2019 CLOSURE SEMILUNAR VALVE AORTIC/PULM SUTURE/PATCH 2003 had aortic valve replacement w/ bovine valve COLONOSCOPY FLX DX W/COLLJ SPEC WHEN PFRMD 01/15/2013 Colonoscopy COLSC FLX W/RMVL OF TUMOR POLYP LESION SNARE TQ 05/07/2017 Colonoscopy - cecal inflammatory polyps. Repeat in 5 yrs DISPLACEMENT THERAPY PROETZ TYPE x3 ESOPHAGOGASTRODUODENOSCOPY TRANSORAL DIAGNOSTIC 01/15/2013 EGD ESOPHAGOGASTRODUODENOSCOPY TRANSORAL DIAGNOSTIC 05/07/2017 EGD FOOT RIGHT OP SURGERY 05/05/2009 HEMORRHOIDECTOMY XTRNL 2/> COLUMN/GROUP LAPS VAGINAL HYSTERECTOMY UTERUS 250 GM/< usvvs, enterocele repair,apr,lsc pvdr,cysto,spt LOW BACK DISK SURGERY 06/2011 OOPHORECTOMY PARTIAL/TOTAL UNI/BI PAST SURGICAL HISTORY OF 04/2012 Thyroid [id number] PAST SURGICAL HISTORY OF aug and september 2011 cataract removal PAST SURGICAL HISTORY OF 2013 aortic valve with On-X valve PERCUTANEOUS AORTIC VALVE REPLACEMENT 09/2013 POSTERIOR COLPORRHAPHY, REPAIR RECTOCELE 2001 SINUS SURGERY PROC UNLISTED [address] Styles ([place]), [address] Wood, 1 in [place] TONSILLECTOMY PRIMARY/SECONDARY <AGE 11 TOTAL ABDOMINAL HYSTERECT W/WO RMVL TUBE OVARY age 31 FAMILY HISTORY Problem Relation Age of Onset Heart Mother Heart Father Diabetes Brother Hypertension Brother Lipids Brother Lipids Daughter other (Depression) Daughter GI Son Lipids Son Diabetes Sister Lipids Sister Social History Tobacco Use Smoking status: Never Smokeless tobacco: Never Tobacco comments: Father smoked in childhood home. Spouse non-smoker. Vaping Use Vaping Use: Never used Substance Use Topics Alcohol use: No Drug use: No Reviewed current medications, allergies, past medical history, surgical history, family history and social history today. REVIEW OF SYSTEMS All other reviewed and negative other than HPI. HEALTH MAINTENANCE: Reviewed health maintenance issues today and recommended the following in detail. RSV Vaccine(1 - 1-dose 60+ series) Never done Influenza Vaccine(1)-recommended. Covid-19 Vaccine(2022- season) -recommended. VITALS: BP 112/62 Pulse 62 Ht 152.4 cm (5') Wt 50.3 kg (110 lb 12.8 oz) SpO2 94% BMI 21.64 kg/m Last 4 Encounter Wt Readings: Date: Wt: 06/27/2023 50.3 kg (110 lb 12.8 oz) 06/04/2023 0 kg () 04/16/2023 50.8 kg (112 lb) 03/26/2023 49.4 kg (109 lb) PHYSICAL EXAMINATION: General appearance: Well appearing, alert, in no acute distress, well-hydrated, well nourished. Skin: Skin color, texture, turgor normal, no suspicious rashes or lesions Head: Normocephalic, no masses, lesions, tenderness or abnormalities Lungs: Lungs clear to auscultation. No wheezing, rhonchi, rales Heart: RRR, click noted. Heart sounds distant Abdomen: Normal abdominal exam, Abdomen soft, non-tender. Bowel sounds normal. No masses, organomegaly Extremities: No deformities, edema, skin discoloration, clubbing or cyanosis. Good capillary refill. Musculoskeletal: No joint swelling, deformity, or tenderness ASSESSMENT/PLAN: 1. Paroxysmal atrial fibrillation (HCC) - ICD9: 427.31, ICD10: I48.0 (primary diagnosis) - stable. Continue med.s 2. Hyperlipidemia LDL goal <100 - ICD9: 272.4, ICD10: E78.5 - check labs while here today. 3. Aortic valve stenosis with insufficiency, etiology of cardiac valve disease unspecified - ICD9: 424.1, ICD10: I35.2 - per cardiology. 4. Heart failure, diastolic, chronic (HCC) - ICD9: 428.32, ICD10: I50.32 - no overload noted. 5. History of aortic valve replacement - ICD9: V43.3, ICD10: Z95.2 - continue on meds. Inr is managed closely. 6. 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 congestive heart failure and stage 3 chronic kidney disease, unspecified whether stage 3a or 3b CKD ([facility]) - ICD9: 404.91, 428.32, 428.0, 585.3, ICD10: I13.0, I50.32, N18.30 - will follow. 7. Chronic obstructive pulmonary disease, unspecified COPD type ([facility]) - ICD9: 496, ICD10: J44.9 - per pulmonary 8. Bronchiectasis without complication (HCC) - ICD9: 494.0, ICD10: J47.9 - stable. 9. Iron deficiency - ICD9: 280.9, ICD10: E61.1 - recheck labs. 10. Gastroesophageal reflux disease without esophagitis - ICD9: 530.81, ICD10: K21.9 - seeing gi soon for dysphagia. 11. Stage 3 chronic kidney disease, unspecified whether stage 3a or 3b CKD (HCC) - ICD9: 585.3, ICD10: N18.30 - follow. 12. Impaired glucose tolerance - ICD9: 790.22, ICD10: R73.02 - check labs. 13. Compression deformity of vertebra - ICD9: 738.5, ICD10: M43.9 - is stable. 14. Lewy body dementia with psychotic disturbance, unspecified dementia severity (HCC) - ICD9: 331.82, 294.11, ICD10: G31.83, F02.82 - per neurology 15. 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HCC) - ICD9: 297.9, ICD10: F22 - can consider geripsych 16. Bilateral carotid artery stenosis - ICD9: 433.10, 433.30, ICD10: I65.23 - check carotid. Kolby Kim MD documented in this encounter [facility] 06-19-2023 History of Present illness Narrative agree patient had inr completed at [facility] patients inr is 3.0 (patients inr range is 2.5-3.5) patient is currently taking 3mg Mon,Wed,Fri and 5mg all other days patients last dose change was on 05/01/23 due to a low level of 2.3 (dose at that time was 5mg Tues,Th,Sat and 3mg all other days) patient has had no changes in medication and no missed doses and no change in diet Advised patient to continue on the same dose(s) and that they would only be contacted regarding dosage and follow up instructions after review with provider, if a change is needed. Written instructions given and patient verbalized understanding. Presently scheduled in 4 weeks (07/17/23) for follow up INR. documented in this encounter [facility] 06-13-2023 History of Present illness Narrative CDM Telephonic Outreach Provider Action/NAMI CHF/COPD/CKD/ Spoke to patient's spouse Guillermina Reports symptoms at baseline States they both received Covid and Flu-Drug [place] Asking about RSV-advised Drug [place] Pneumovax if needed can be completed at PCP office. Follows with palliative care- Has nursing support in the home Referral to GI? Narrowing of esophagus-? Considering Consider pharmacist to maximize HF medications. Reinforce next call Contacted for: Routine Telephonic Outreach Contact made with patient: Yes Patient identified by name and date of . Discussed care with spouse Are you experiencing any new or worsening symptoms you need to talk about today? No Disease Specific Do you check your blood pressure at home? No Do you have new or worsening shortness of breath with activity? No Do you have new or worsening trouble breathing while lying flat? No Do you have new or worsening swelling of legs, feet or ankles? No Do you feel like you are dehydrated for any reason, including not being able to eat or drink normally, or having less urine/much darker urine than normal for you? No Do you check your daily weight at home? No and Do you have new or worsening cough? No Do you have new or worsening wheezing? No Do you need to use your rescue (Albuterol) inhaler or nebulizer more often than normal? No Based on meat pumper, the following disposition is advised: No symptoms or symptoms present, not severe. Routed to: No Action Needed ROMELIA Education Provided this Outreach: Yes Sunny Estrella RN June 15, 2023 3:27 PM documented in this encounter [facility] 06-04-2023 Instructions Shawn Santana MD - 06/04/2023 11:22 AM EST The next medication we would typically try is called quetiapine AKA Seroquel - its a medication for hallucinations / delusions. It carries a boxed warning about risk of mortality, which does not stop me from trying it when a patient is having bothersome hallucinations. It can slow down a heart number called Qtc, which yours was normal in October. Patient's with Lewy Body can be more sensitive to it and cause sedation. Let me know if interested, we would start with the lowest pill size 25 mg and have you do 1/2 pill at night. We could also consider having you see a geriatric psychiatrist for help with hallucinations - the geriatric psychiatrists at [facility] are Dr. Tinsley and Dr. Navarrete - [phone]. documented in this encounter [facility] 06-04-2023 History of Present illness Narrative FOLLOW UP NOTE Subjective Elza Chu is a 77 year old female who presents for follow up. 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 Her examination demonstrates mild parkinsonism and signs of right lumbar radiculopathy. Agree with diagnosis of Lewy Body Dementia. Explained patients with this can have parkinsonism but that treatment may worsen hallucinations. Her parkinsonism is mild enough that I wouldn't recommend treating it at this time. Encouraged physical activity. Rivastigmine patch may help with hallucinations as well as for cognition, they will watch closely with previous side effects to donepezil. The RLE symptoms which are contributing to her gait likely due to lumbar radiculopathy. She had injections for this in the past. Would not suggest surgical evaluation, but could do physical therapy or see spine medicine specialist for injections / other treatments. 11/2022 try to get patch again. HPI Current Issues 1. LBD - Hallucinations / delusions worse, CAPGRAS of and house - Was given diazepam by palliative care, 2 mg made her too sleepy so taking 1 mg BID then increase 1 mg AM 2 mg PM due to anxiety. - Sleep is usually good - Some difficulty using hands to do things like tying shoes / buttoning buttons, does them slowly 2. Pain - In a wheelchair today as legs weak / painful - Hasn't been seeing pain management recently Current Outpatient Medications Medication Sig Dispense Refill potassium chloride ER (KLOR-CON) 20 mEq tablet Take 1 tablet by mouth once daily. 90 tablet 3 diazePAM (VALIUM) 2 mg tablet Take by mouth twice daily. Take 1 tablet in the AM and 1/2-1 tablet in the evening. warfarin (COUMADIN) 2.5 mg tablet 2.5 mg daily or as directed 90 tablet 3 albuterol (PROVENTIL) 2.5 mg /3 mL (0.083 %) nebulizer solution Use 3 mL via nebulizer every 6 hours as needed for wheezing/shortness of breath. DX: J45.40 Hx of moderate persistent Asthma 360 mL 3 metoprolol succinate ER (TOPROL XL) 100 mg Take 1 tablet by mouth once daily. [address] (PROTONIX) 40 mg tablet Take 1 tablet by mouth twice daily. 180 tablet 3 ferrous sulfate 325 mg (65 mg iron) tablet Take 1 tablet by mouth twice daily with meals. 180 tablet 1 furosemide (LASIX) 40 mg tablet Take 1 tablet by mouth once daily. 90 tablet 1 PARoxetine (PAXIL) 30 mg tablet Take 1 tablet by mouth once daily. 90 tablet 3 nitroglycerin sublingual (NITROQUICK) 0.4 mg SL tablet DISSOLVE ONE TABLET UNDER THE TONGUE EVERY 5 MINUTES NEEDED FOR CARDIAC/CHEST PAIN amLODIPine (NORVASC) 2.5 mg tablet Take 1 tablet by mouth once daily. ergocalciferol 50,000 unit capsule (VITAMIN D2, DRISDOL) Take 1 capsule by mouth every other week. montelukast (SINGULAIR) 10 mg tablet Take 1 tablet by mouth daily at bedtime. 90 tablet 3 pregabalin (LYRICA) 25 mg capsule Take 1 capsule by mouth daily at bedtime for 30 days. 30 capsule 0 buPROPion XL (WELLBUTRIN XL) 150 mg 24 hr tablet Take 1 tablet by mouth once daily. 90 tablet 3 warfarin (COUMADIN) 3 mg tablet 2.5 mg MW and 4.5 mg all other days or as directed (Patient taking differently: 2.5 mg or as directed) 90 tablet 3 amiodarone (PACERONE) 200 mg tablet Take 100 mg by mouth once daily. albuterol HFA (PROAIR HFA) 90 mcg/actuation inhaler Inhale 2 Puffs as instructed every 4 hours as needed. 3 Inhaler 0 acetaminophen (TYLENOL EXTRA STRENGTH) 500 mg tablet Take 1 tablet by mouth every 4 hours as needed for Pain. RANGE FREQ? 0 Nebulizer NEBULIZER FOR HOME USE and necessary supplies. DX: Hypoxemia, Pneumonia and Hemoptisis 1 Each 0 pravastatin (PRAVACHOL) 80 mg tablet TAKE 1 TABLET BY MOUTH ONCE DAILY 90 tablet 3 aspirin 81 mg chewable tablet Take 2 tablets by mouth once daily. 0 ezetimibe(ZETIA 10 MG TAB) Take one(1) tablet daily. 0 iv contrast (will be provided with radiology test) CT Chest W -Inject, intravenously, once for 1 dose.No IV access, insert saline lock prior to the beginning of sedation, infusion, injection of imaging exam. Discontinue saline lock post exam. If Pt. has a central line or IVAD, may access for administration according to line specific nursing protocol. Once exam is complete flush line and de-access according to line specific nursing protocol in the CT contrast administration guidelines link. (Patient not taking: Reported on 06/04/2023) 1 Each 0 baclofen (LIORESAL) 10 mg tablet Take 1 tablet by mouth three times daily as needed (muscle spasms). (Patient not taking: Reported on 06/04/2023) 30 tablet 0 BREO ELLIPTA 200-25 mcg/dose inhaler INHALE 1 PUFF BY MOUTH ONCE DAILY (Patient not taking: Reported on 06/04/2023) SPIRIVA RESPIMAT 2.5 mcg/actuation inhaler INHALE 2 SPRAYS BY MOUTH ONCE DAILY AT APPROXIMATELY THE SAME TIME EACH DAY (Patient not taking: Reported on 06/04/2023) warfarin (COUMADIN) 2.5 mg tablet 2.5 mg daily or as directed (Patient not taking: Reported on 06/04/2023) budesonide-formoterol (SYMBICORT) 160-4.5 mcg/actuation inhaler Inhale 2 Puffs as instructed twice daily. (Patient not taking: Reported on 06/04/2023) triamcinolone acetonide (NASACORT AQ) 55 mcg nasal inhaler Use 1 [place] in the nose once daily. (Patient not taking: Reported on 06/04/2023) No current facility-administered medications for this visit. REVIEW OF SYSTEMS Her ROS was positive for that mentioned in the HPI. Otherwise a 10-point ROS was completed and was negative. Objective OBJECTIVE 06/04/23 1046 BP: 120/65 Pulse: 61 Temp: 36.6 C (97.8 F) TempSrc: Tympanic SpO2: 93% General: General Appearance: Well appearing, alert, in no acute distress, well-hydrated, well nourished. Head: Normocephalic Neck: Supple Heart: RRR Neurologic Exam: Mental Status: She is alert. Month x, age 76 x, day of week fri x, WORLD -> DROW. Recall of her history is mildly impaired. Affect is restricted. Cranial Nerves: Extraocular movements show full and smooth pursuits. No nystagmus. Visual godwin are full to confrontation. Facial sensation is intact. Facial activation is symmetric. Hearing is intact to conversation. There is mild hypomimia. There is mild hypophonia. There is no dysarthria. Tongue is midline. Palate elevates symmetrically. Shoulder shrug is normal. Motor: Muscle bulk is normal. Mild RLE weakness. Mild R>LUE bradykinesia. Minimal rigidity. Subtle right hand tremor. Coordination: Finger to nose is smooth without ataxia. Gait/station: Right foot externally rotated. Mildly stooped posture. Decreased stride length and serena. DATA REVIEW Actual films/image/tracing reviewed and summarized as follows: n/a Old records reviewed and summarized as follows: CT L-spine 09/19/22 multilevel degenerative changes comparable to prior exam CT L-spine 09/18/21 severe degenerative changes / compression deformities. Reviewed referral records from Dr. Sanchez and prior neuro records from Dr. Monreal Assessment/Plan ASSESSMENT & PLAN: Elza Chu is a 77 year old right-handed female with a history of Lewy Body Dementia, mechanical AVR on coumadin, and depression amongst other conditions who presents for follow up of parkinsonism in LBD. Her examination demonstrates mild parkinsonism and signs of right lumbar radiculopathy. 1. LBD - Couldn't get rivastigmine - Hallucinations / delusions daily, more bothered than patient - Explained next treatment would be quetiapine, explained risks with neuroleptics in LBD and box warning on mortality - Qtc when last checked earlier this year normal. They would like to think about it, gave info in case interested - Also could consider seeing geripsych but explained they would be offering medications so if not interested in medication not sure would be beneficial to see - Encouraged activity Follow-up: 6 months Risks & Side Effects of Newly Prescribed Medication, Discussed with Patient: YES Shawn Santana MD [facility] documented in this encounter [facility] 05-29-2023 History of Present illness Narrative agree patient had inr completed at [facility] patients inr is 3.1 (patients inr range is 2.5-3.5) patient is currently taking 3mg Mon,Wed,Fri and 5mg all other days patients last dose change was on 05/01/23 due to a low level of 2.3 (dose at that time was 5mg Tues,Thurs,Sat and 3mg all other days) patient has had no changes in medication and no missed doses and no change in diet Advised patient to continue on the same dose(s) and that they would only be contacted regarding dosage and follow up instructions after review with provider, if a change is needed. Written instructions given and patient verbalized understanding. Presently scheduled in 3 weeks (06/19/23) for follow up INR. documented in this encounter [facility] 05-15-2023 History of Present illness Narrative agree patient had inr completed at [facility] patients inr is 3.1 (patients inr range is 2.5-3.5) patient is currently taking 3mg mon,Wed,Fri and 5mg all other days patients last dose change was on 05/01/23 due to a low level of 2.3 (dose at that time was 5mg Tues,thurs,Sat and 3mg all other days) patient has had no change in medication except for coumadin and no missed doses and no change in diet Advised patient to continue on the same dose(s) and that they would only be contacted regarding dosage and follow up instructions after review with provider, if a change is needed. Written instructions given and patient verbalized understanding. Presently scheduled in 2 weeks (05/29/23) for follow up INR since this is the first normal reading since dose change documented in this encounter [facility] 05-15-2023 History of Present illness Narrative CDM Telephonic Outreach Provider Amanda/DOREEN Spoke with spouse-Patient taking a nap Contacted for: Routine Telephonic Outreach Contact made with patient: Yes Patient identified by name and date of . Discussed care with spouse documented in this encounter [facility] 05-01-2023 History of Present illness Narrative Agree with rec Dk, Michael Harrell PA-C patient had inr completed at [facility] patients inr is 2.3 (patients inr range is 2.5-3.5) patient is currently taking 5mg Tues,Thurs,Sat and 3mg all other days patients last dose change was on 04/17/23 due to a low level of 2.1 (dose at that time was 5mg Tues, Thur,Sat and 2.5mg all other days) patient has had no changes in medication except for coumadin and no missed doses and no change in diet Recommend: patient change coumadin dose to 3mg Mon,Wed,Fri and 5mg all other days and recheck inr in 2 weeks patient has been scheduled for a 2 week follow up inr on 05/15/23 please review and advise on recommendation documented in this encounter [facility] 04-26-2023 Miscellaneous Notes Results relayed to patient and also to nurse that is home with Pat. They will let patient know. Advised to have Guillermina contact office with any questions. Shows narrowing in her esophagus. Would likely need a scope to evaulate better. Likely would have to be done in a hospital I am unsure if our surgeons would be comfortable doing it with her issues. Are they willing to travel? Would have her see gi. documented in this encounter [facility] 04-26-2023 Note HNO ID: [id number] Author: Belinda Wilson RT(Suresh) Service: Radiology Author Type: Technologist Type: Progress Notes Filed: 04/26/2023 10:58 AM Note Text: Radiology Service Progress Note PATIENT NAME: Elza Chu DATE OF SERVICE: April 26, 2023 TIME: 10:58 AM PATIENT IDENTITY VERIFICATION COMPLETED USING TWO (2) IDENTIFIERS: Name and Date of confirmed by patient verbally. FALL SCREENING: Has the patient had 2 falls in the last year or 1 fall with injury or currently using an Ambulatory Assistive Device (Walker, Cane, Wheelchair, Crutches, etc.)? Yes, Patient High Risk for Falls What interventions were put in place to prevent falls during this visit? [place] Risk Wristband Applied and Offered Assistance with Transfers/Clothing PATIENT GENDER DATA: Female. status: : No status: NO. PATIENT RELEVANT IMPLANT DATA REVIEWED: Not Applicable RADIOLOGY DEPARTMENT: General X-ray: Exam(s) Completed: GI/ Procedure(s): Esophogram with barium contrast PERIPHERAL IV DATA: Not applicable SIGNED BY: RT Isabella(Suresh) April 26, 2023 10:58 AM [facility] 04-26-2023 History of Present illness Narrative Radiology Service Progress Note PATIENT NAME: Elza Chu DATE OF SERVICE: April 26, 2023 TIME: 10:58 AM PATIENT IDENTITY VERIFICATION COMPLETED USING TWO (2) IDENTIFIERS: Name and Date of confirmed by patient verbally. FALL SCREENING: Has the patient had 2 falls in the last year or 1 fall with injury or currently using an Ambulatory Assistive Device (Walker, Cane, Wheelchair, Crutches, etc.)? Yes, Patient High Risk for Falls What interventions were put in place to prevent falls during this visit? [place] Risk Wristband Applied and Offered Assistance with Transfers/Clothing PATIENT GENDER DATA: Female. status: : No status: NO. PATIENT RELEVANT IMPLANT DATA REVIEWED: Not Applicable RADIOLOGY DEPARTMENT: General X-ray: Exam(s) Completed: GI/ Procedure(s): Esophogram with barium contrast PERIPHERAL IV DATA: Not applicable SIGNED BY: RT Isabella(Suresh) April 26, 2023 10:58 AM documented in this encounter [facility] 04-17-2023 History of Present illness Narrative spouse notified of information agree patient had inr completed at [facility] patients inr is 2.1 (patients inr range is 2.5-3.5) patient is currently taking 5mg Tues.,Thurs,Sat and 2.5mg all othe days patients last dose change was on 04/03/23 due to a low level of 1.6 (dose at that time was 5mg Tues,Thurs and 2.5mg all other days) patient has had no changes in medication except for coumadin and no missed doses and no change in diet Recommend: patient change coumadin dose to 5mg Tues,Thurs ,Sat and 3mg all other days and recheck inr in 2 weeks patient has been scheduled for a 2 week follow up inr on 05/01/23 please review and advise on recommendation documented in this encounter [facility] 04-12-2023 History of Present illness Narrative CD Telephonic Outreach Provider Amanda/NAMI Sounds good on phone today.No audible wheezing or sob Breathing sounds better. Reports she feels better today Appetite better. Taking 2 boost drinks/day. CHF/COPD/CKD-baseline Oxygen 3L -pulse ox readings 98% Encouragement given. Staying hydrated, urinating good amounts In good spirits today Contacted for: Routine Telephonic Outreach Contact made with patient: Yes Patient identified by name and date of . Discussed care with patient Are you experiencing any new or worsening symptoms you need to talk about today? No Disease Specific Do you check your blood pressure at home? No Do you have new or worsening shortness of breath with activity? No Do you have new or worsening trouble breathing while lying flat? No Do you have new or worsening swelling of legs, feet or ankles? No Do you feel like you are dehydrated for any reason, including not being able to eat or drink normally, or having less urine/much darker urine than normal for you? No Do you check your daily weight at home? No and Do you have new or worsening cough? No Do you have new or worsening wheezing? No Do you need to use your rescue (Albuterol) inhaler or nebulizer more often than normal? No Based on meat pumper, the following disposition is advised: No symptoms or symptoms present, not severe. Routed to: No Action Needed ROMELIA Education Provided this Outreach: No Sunny Estrella RN April 12, 2023 4:04 PM documented in this encounter [facility] 04-11-2023 Miscellaneous Notes agree Patient calls because she thinks that her oxygen concentrator is broken. Patient states that she is not getting any air from concentrator. Asked patient to check to make sure oxygen concentrator is plugged in, patient verifies that it is plugged in. Tubing is connected to oxygen concentrator. Trent, patient's , states that he can feel oxygen coming from nasal cannula, but states that patient states that she cannot feel oxygen. Trent states that patient has been having issues with bloody nose and has been having a hard time breathing. Advised Trent to take patients oxygen, patient 88 on 4 liters of oxygen then 85 on 4 liters of oxygen. Advised Trent to take patient into ER to be evaluated since patient's O2 level is low and patient is becoming more short of breath. Trent voices understanding. Lucretia Fabian RN documented in this encounter [facility] 04-11-2023 Discharge summary Note Date/Time April 11, 2023 5:04pm [facility] Records Department [address] [place] [address] Emergency Department Summary 04/11/23 MR#: [id number] Acct: [id number] Name: ELZA CHU Rep #:[id number] : 1945 77 From: Jose Yap MD PCP: Dr. Kolby Kim MD Status:REG E R Location: ED HPI History of Present Illness Chief Complaint: Shortness of Breath Narrative Narrative: 77-year-old female past medical history of COPD, wears 4 L of oxygen at home presents with her because of shortness of breath that started today. Although the triage note stated 2 days ago, she states that she began having problems breathing today, and it felt like her nasal cannula oxygen was not giving her any oxygen. Her noted that she had small amount of dried blood from the nosebleed she experienced this morning. She does have bilateral nasal polyps as well. He checked the tubing and the nasal cannula and oxygen was flowing. She complained that she felt like she was not getting oxygen and felt short of breath in the center of my chest. Over the last year, they haveincreased her nasal cannula oxygen from 3 L/min to 4 L/min. She has had recent cough, but no fever or chills. 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 Nonrheumatic aortic valve regurgitation Nonspecific chest pain NSTEMI, initial episode of care Obesity Palpitations Severe sepsis Syncope and collapse Home Medications pantoprazole 40 mg tablet,delayed release 40 mg PO BID ACID REFLUX 01/14/15 [History Last Taken 07/07/20] bupropion HCl 150 mg 24 hr tablet, extended release 150 mg PO DAILY DEPRESSION 11/15/15 [History Last Taken 07/07/20] montelukast 10 mg tablet 10 mg PO QHS ALLERGIES 05/03/17 [History Last Taken 07/06/20] potassium chloride 20 mEq tablet,extended release(part/cryst) 20 meq PO DAILY SUPPLEMENT 05/03/17 [History Last Taken 07/06/20] lorazepam 0.5 mg tablet 0.5 mg PO BID PRN ANXIETY 09/04/17 [History Last Taken 07/07/20] furosemide 40 mg tablet 40 mg PO DAILY WATER PILL ##0 12/06/17 [Rx Last Taken 07/06/20] cholecalciferol (vitamin D3) 1,250 mcg (50,000 unit) capsule 50,000 unit PO FR SUPPLEMENT 06/16/19 [History Last Taken 06/25/20] acetaminophen 650 mg tablet,extended release 650 mg PO Q6H PRN BACK PAIN 07/07/20 [History Last Taken 07/07/20] albuterol sulfate 2.5 mg/3 mL (0.083 %) solution for nebulization 2.5 mg (3 mL) inhalation Q4H PRN #25 vials 05/21/21 [Rx Last Taken Unknown] triamcinolone acetonide 55 mcg nasal spray aerosol (Nasacort) 1 spray intranasalDAILY #16.9 mL 06/10/21 [Rx Last Taken Unknown] famotidine 20 mg tablet 20 mg PO DAILY PRN gerd 11/29/21 [History Last Taken Unknown] ferrous sulfate 325 mg (65 mg iron) tablet 325 mg PO BID Check with primary doctor 11/29/21 [History Last Taken Unknown] fluticasone furoate 200 mcg-vilanterol 25 mcg/dose inhalation powder (Breo Ellipta) 1 inh inhalation DAILY #60 ea 08/07/22 [Rx Last Taken Unknown] pravastatin 80 mg tablet 80 mg PO QHS CHOLESTEROL LOWERING #90 tabs 09/25/22 [Rx Last Taken Unknown] tiotropium bromide 2.5 mcg/actuation mist for inhalation (Spiriva Respimat) 2 puff inhalation QDAY #3 ea 10/17/22 [Rx Last Taken Unknown] amiodarone 200 mg tablet 100 mg PO DAILY Check with primary doctor 10/20/22 [History Last Taken Unknown] ezetimibe 10 mg tablet (Zetia) 10 mg PO DAILY Check with primary doctor 10/20/22[History Last Taken Unknown] warfarin 2.5 mg tablet 2.5 mg PO DAILY Check with primary doctor 10/20/22 [History Last Taken Unknown] aspirin 81 mg tablet,delayed release 81 mg PO BREAKFAST 30 days #30 tabs 11/03/22 [Rx Last Taken Unknown] metoprolol succinate 100 mg tablet,extended release 24 hr 100 mg PO DAILY 30 days #30 tabs 11/03/22 [Rx Last Taken Unknown] nitroglycerin 0.4 mg sublingual tablet 0.4 mg sublingual Q5M PRN Cardiac/Chest Pain 30 days #30 tabs 11/03/22 [Rx Last Taken Unknown] amlodipine 2.5 mg tablet 2.5 mg PO DAILY #90 tabs 11/20/22 [Rx Last Taken Unknown] paroxetine HCl 20 mg tablet 30 mg PO DAILY Check with primary doctor 12/07/22 [History Last Taken Unknown] albuterol sulfate 90 mcg/actuation aerosol inhaler 2 puff inhalation Q6H PRN shortness of breath or wheezing 03/08/23 [History Last Taken Unknown] baclofen 10 mg tablet 10 mg PO Q8H PRN muscle spasm 03/08/23 [History Last Taken Unknown] ergocalciferol (vitamin D2) 1,250 mcg (50,000 unit) capsule 1,250 mcg PO QWEEK 03/08/23 [History Last Taken Unknown] pregabalin 25 mg capsule 25 mg PO QHS 03/08/23 [History Last Taken Unknown] Allergy/AdvReac Type Severity Reaction Status Date / Time donepezil Allergy Severe shortness Verified 02/05/23 11:36 of breath risperidone Allergy Severe Confusion Verified 02/05/23 11:36 Sulfa (Sulfonamide Allergy Swelling Verified 02/05/23 11:36 Antibiotics) celecoxib [From Celebrex] AdvReac Severe Swelling Verified 02/05/23 11:36 dextromethorphan AdvReac Severe hallucinati Verified 02/05/23 11:36 [From Delsym] on adhesive AdvReac blisters Verified 02/05/23 11:36 codeine AdvReac Itching Verified 02/05/23 11:36 levofloxacin [From Levaquin] AdvReac pain in Verified 02/05/23 11:36 legs and swelling lisinopril AdvReac cough Verified 02/05/23 11:36 oxycodone [Oxycodone] AdvReac Itching Verified 02/05/23 11:36 oxycodone HCl [From Percocet] AdvReac Itching Verified 02/05/23 11:36 Penicillins AdvReac heart Verified 02/05/23 11:36 palpitations prochlorperazine edisylate AdvReac Low blood Verified 02/05/23 11:36 [From Compazine] pressure prochlorperazine maleate AdvReac Low blood Verified 02/05/23 11:36 [From Compazine] pressure tramadol HCl [From Ultram] AdvReac Itching Verified 02/05/23 11:36 Family History Mother Arthritis CAD (coronary artery disease) Father Arthritis High cholesterol CAD (coronary artery disease) Sister Diabetes High cholesterol Hypertension Brother Diabetes High cholesterol Hypertension Surgical History H/O aortic valve replacement History of back surgery History of foot surgery History of hysterectomy History of mechanical aortic valve replacement (~10/07/13) History of sinus surgery Social History household members: spouse number of children: 2 Smoking Status: Never smoker alcohol intake: never substance use type: does not use caffeine: Yes Type: coffee what type of physical activity do you participate in: none seatbelt use: always do you feel safe at home: Yes ROS ROS ED ROS Narrative Constitutional: No fever, no chills. HEENT: No sore throat. No neck pain. No loss of vision. No rhinorrhea. Cardiovascular: No chest pain. No palpitations. No pedal edema. Respiratory: As of cough, shortness of breath today. Abdominal: No abdominal pain. No nausea. No vomiting. Genitourinary: No dysuria. No hematuria. Musculoskeletal: No myalgias. No arthralgias. Neurologic: No headaches. No dizziness. No lightheadedness. Skin: No rash. No change in color. Psychiatric: No depression. No anxiety. EXAM Physical Exam Narrative Exam Narrative: Afebrile. Vital signs noted. HEENT: Normocephalic. Atraumatic. PERRL, EOMI. Neck soft and supple. No pointtenderness or step off. Cardiovascular: Regular rate and rhythm. No murmurs, rubs, or gallops appreciated. Respiratory: No tachypnea. Lungs clear to auscultation bilateraly except l occasional diffuse rhonchi. Small amount of dried blood on the outer portion ofleft nares. No large clot or obstruction noted in bilateral nares. Gastrointestinal: Abdomen soft, nontender, with normoactive bowel sounds. No rebound or guarding. Neurological: Awake. Alert. Nonfocal, nonlateralizing. Skin: No rash. Normal color. No pallor. Musculoskeletal: No pedal edema. Full range of motion extremities. Const Vital Signs: 04/11/23 15:50 04/11/23 17:23 04/11/23 17:37 Temperature 98.1 F Temperature Source Temporal Pulse Rate 81 80 Respiratory Rate 22 H 16 Respiratory Effort Short of Breath Respiratory Pattern Normal Blood Pressure 137/65 H Blood Pressure Mean 89 Pulse Ox 93 Oxygen Delivery Method Nasal Cannula Oxygen Flow Rate (L/min) 3 04/11/23 17:40 04/11/23 17:41 Temperature 98.1 F Temperature Source Temporal Pulse Rate 59 L Respiratory Rate 16 Respiratory Effort Respiratory Pattern Blood Pressure 142/62 H Blood Pressure Mean 88 Pulse Ox 98 Oxygen Delivery Method Room Air Room Air Oxygen Flow Rate (L/min) MDM MDM MDM Narrative Medical decision making narrative: The differential diagnosis would be obstruction of the nasal cannula oxygen, butthat was checked at home. She could have had a large nasal clot obstructing, but on examination her nares are patent and there is no active bleeding. She may be having more of a COPD exacerbation. She is satting 93% on nasal cannula oxygen at 3 L here. I will check baseline laboratories including CBC and BMP along with a chest x-ray. Currently, I do feel that she is stable in her COPD. EKG was obtained and interpreted by myself independently as what appears to me as normal sinus rhythm at 63 bpm without ectopy or acute ST changes. No STEMI. I do feel that there is baseline artifact in the rhythm strip. I reviewed her laboratory work and she has a normal white count of 6.1, hemoglobin is normal at12.0 without evidence of anemia, platelet count normal at 250. Her electrolyte panel is grossly unremarkable with a sodium of 142 and a potassium of 3.6, CO2 is elevated at 38 consistent with her COPD. BUN of 19 with a creatinine of 0.90, glucose normal at 84. Chest x-ray was obtained and interpreted by myself independently as atelectasis but no pneumonia. I do not feel antibiotics are indicated. I reviewed the radiology report which states that there are small bilateral pleural effusions, but confirms my independent interpretation. At this point in time, her oxygen level is normal on her nasal cannula oxygen here. I do not feel she requires observation. I feel she can be discharged safely home with follow-up. Return instructions to the emergency department were reviewed. Disposition is discharged home in stable condition. History & Record Review Discussion w/independent historian: Patient and Family Additional record(s) reviewed:: Prior ED visit and Prior labs Lab Data Attestation: I reviewed the patient's lab results. Labs: Laboratory Results - last 24 hr 04/11/23 17:10 WBC 6.1 RBC 4.40 Hgb 12.0 Hct 41.3 MCV 93.9 MCH 27.3 MCHC 29.1 L RDW Std Deviation 50.1 H RDW Coeff of Loki 14.5 Plt Count 250 MPV 10.2 Immature Gran % (Auto) 0.300 Neut % (Auto) 73.8 H Lymph % (Auto) 12.4 L [place] % (Auto) 8.2 Eos % (Auto) 4.6 Baso % (Auto) 0.7 Absolute Neuts (auto) 4.5 Absolute Lymphs (auto) 0.75 L Nucleated RBC % 0 Sodium 142 Potassium 3.6 Chloride 103 Carbon Dioxide 38.0 H Anion Gap 1 L BUN 19 H Creatinine 0.90 Est GFR (MDRD) Af Amer 78 Est GFR (MDRD) Non-Af 64 BUN/Creatinine Ratio 21.1 H Glucose 84 Calcium 9.3 Radiography Diagnostic Testing: Clinical Impression(s) from Imaging Studies Chest X-Ray 04/11/23 17:43 IMPRESSION: Low lung volume with basilar atelectasis with small right and trace left layering effusions. Electronically Signed: Saad Delgado DO at 18:03 EDT , Discharge Plan Triage Chief Complaint: Shortness of Breath ED Provider: Jose Yap Dx/Rx/DC Orders Clinical Impression: Chronic dyspnea, COPD (chronic obstructive pulmonary disease) Instructions: ED COPD Flare, ED Dyspnea Prescriptions: No Action cholecalciferol (vitamin D3) 50,000 unit capsule 50,000 unit PO FR ferrous sulfate 325 mg (65 mg iron) tablet 325 mg PO BID Patient Comments: TAKE 1 TABLET BY MOUTH TWICE DAILY WITH MEALS amlodipine 2.5 mg tablet 2.5 mg PO DAILY Qty: 90 3RF pantoprazole 40 MG tablet 40 mg PO BID Patient Comments: stomach lorazepam 0.5 MG tablet 0.5 mg PO BID PRN (Reason: ANXIETY) Patient Comments: anxiety bupropion HCl 150 MG tablet extended release 24 hr 150 mg PO DAILY Patient Comments: depression potassium chloride 20 MEQ tablet 20 meq PO DAILY montelukast 10 MG tablet 10 mg PO QHS furosemide 40 MG tablet 40 mg PO DAILY Qty: 0 0RF Hold Instructions: Resume on 10/25/22. acetaminophen 650 MG tablet extended release 650 mg PO Q6H PRN (Reason: BACK PAIN) famotidine 20 mg tablet 20 mg PO DAILY PRN (Reason: gerd) Patient Comments: TAKE 1 TABLET BY MOUTH AT BEDTIME NEEDED paroxetine HCl 20 mg tablet 30 mg PO DAILY albuterol sulfate 2.5 MG/3 ML solution for nebulization 2.5 mg inhalation Q4H PRN Qty: 25 0RF Rx Instructions: Use q4 hours and PRN for wheezing amiodarone 200 mg tablet 100 mg PO DAILY ezetimibe [Zetia] 10 mg tablet 10 mg PO DAILY warfarin 2.5 mg Tablet 2.5 mg PO DAILY metoprolol succinate 100 mg Tablet Extended Release 24 Hr 100 mg PO DAILY 30 Days Qty: 30 2RF nitroglycerin 0.4 mg Tablet, Sublingual 0.4 mg sublingual Q5M PRN (Reason: Cardiac/Chest Pain) 30 Days Qty: 30 0RF aspirin 81 mg Tablet,Delayed Release (Dr/Ec) 81 mg PO BREAKFAST 30 Days Qty: 30 2RF ergocalciferol (vitamin D2) 1,250 mcg (50,000 unit) capsule 1,250 mcg PO QWEEK Patient Comments: TAKE 1 CAPSULE BY MOUTH ONCE A WEEK pregabalin 25 mg capsule 25 mg PO QHS baclofen 10 mg tablet 10 mg PO Q8H PRN (Reason: muscle spasm) Patient Comments: TAKE 1 TABLET BY MOUTH THREE TIMES DAILY NEEDED FOR MUSCLE SPASMS albuterol sulfate 90 mcg/actuation HFA aerosol inhaler 2 puff inhalation Q6H PRN (Reason: shortness of breath or wheezing) Rx Instructions: administer with spacer triamcinolone acetonide [Nasacort] 55 mcg aerosol,spray 1 spray INTRANASAL DAILY Qty: 16.9 6RF fluticasone furoate-vilanterol [Breo Ellipta] 200-25 mcg/dose blister with device 1 inh inhalation DAILY Qty: 60 11RF pravastatin 80 mg tablet 80 mg PO QHS Qty: 90 3RF Spiriva Respimat 2.5 mcg/actuation mist 2 puff inhalation QDAY Qty: 3 3RF Rx Instructions: administer at approximately the same time(s) each day Primary Care Provider: Kolby Kim Referrals: Kolby Kim MD [Primary Care Provider] - 3-5 Days if not improving Disposition Disposition: Home, Self Care What to do if you have Problems For any increased pain, shortness of breath, bleeding, nausea or vomiting, chestpain, or any unexpected problems, contact your Primary Care Provider. Call [facility] ([phone]) or report to the closest Emergency Room. Call 911 if necessary. 04/11/231817 <Electronically signed by Jose Yap MD> Cosigner Signature (if applicable): CC: Dr. Kolby Kim MD ~ Signed [facility] Work Phone: [phone] History of Present illness Narrative* Tia Mock RN - 04/03/2023 4:49 PM EDT PATIENT NOTIFIED OF INFORMATION will keep appt in 2 weeks d/t the cc is closed at that 1 week dandre * Reggie Zhong MD - 04/03/2023 3:39 PM EDT INR remains low. Increase coumadin to 2.5 mg Mon, Wed, Fri and 5 mg all other days. Recheck in 1 week. * Tia Mock RN - 04/03/2023 2:53 PM EDT patient had inr completed at [facility] patients inr is 1.6 (patients inr range is 2.5-3.5) patient is currently taking 5mg Tues,Thurs and 2.5mg all other days days patients last dose change was on 03/20/23 due to a low level of 1.6 (dose at that time was 5mg Wed and 2.5mg all other days) patient has had no changed in medication except for coumadin and no missed doses and no change in diet Recommend: patient change coumadin dose to 5mg Tues,Thurs,Sat and 2.5mg all other days and recheck inr in 2 weeks patient has been scheduled for a 2 week follow up inr on 04/17/23 please review and advise on recommendation [facility] History of Present illness Narrative* Kolby Kim MD - 03/26/2023 2:55 PM EDT Patient presents with: Follow Up HPI: Patient presents today for office visit for follow up. Esophagogram is not scheduled until later this month. Weight is stable. Swallowing is about the same. No choking spells. Has been using ensure. Likes to eat cookies. Weight is stable. No chest pain. Appetite may be a little better. Asking about something to help with sinus drainage at night. Not currently using nasal spray. Is using singulair per patient. Has used most meds available. Sees Dr. Johnson. She does not want to go back to see ENT Can occasionally tear her oxygen off and when it goes back off feels better. Can feel palpitations when that happens. Sees cardiology regularly. No chest pain with exertion. See previous: Has had issues with poor appetite. Has dental issues. Feels full easily. Eats very slowly. Can sometimes feel like things stick. Has some early satiety. Discussed doing an esophagogram and speech eval. Discussed increasing boost to bid or tid. Is only taking it once a day currently. No actually choking or worsening cough. She is adamant she does not want a feeding tube. Has seen pulmonary and cardiology recently. Breathing is not worse. See previous ov: Paxil increased at last OV to 30 mg daily. She feels it's helped her appetite some. Now has desire to eat. Still losing weight. No suicidal ideation. No side effects. Moods are improving. No new stomach pain. Discussed using boost or ensure daily. She and her do not want aggressive work up of her weight loss. Breathing is stable. is now doing her meds. Home health is coming twice a week. Component Latest Ref Rng & Units 02/26/2023 WBC 3.70 - 11.00 k/uL 9.61 RBC 3.90 - 5.20 m/uL 4.40 Hemoglobin 11.5 - 15.5 g/dL 11.8 Hematocrit 36.0 - 46.0 % 40.6 MCV 80.0 - 100.0 fL 92.3 MCH 26.0 - 34.0 pg 26.8 MCHC 30.5 - 36.0 g/dL 29.1 (L) RDW-CV 11.5 - 15.0 % 14.3 Platelet Count 150 - 400 k/uL 318 MPV 9.0 - 12.7 fL 11.1 Neut% % 79.5 Abs Neut (ANC) 1.45 - 7.50 k/uL 7.64 (H) Lymph% % 7.8 Abs Lymph 1.00 - 4.00 k/uL 0.75 (L) [place]% % 6.6 Abs [place] <0.87 k/uL 0.63 Eosin% % 5.2 Abs Eosin <0.46 k/uL 0.50 (H) Baso% % 0.5 Abs Baso <0.11 k/uL 0.05 Immature Gran % % 0.4 IMMATURE GRANS (ABS) <0.10 k/uL 0.04 NRBC /100 WBC 0.0 Absolute nRBC <0.01 k/uL <0.01 DTYPE Auto Protein, Total 6.3 - 8.0 g/dL 5.8 (L) Albumin 3.9 - 4.9 g/dL 3.4 (L) Calcium 8.5 - 10.2 mg/dL 9.9 Bilirubin, Total 0.2 - 1.3 mg/dL 0.3 Alkaline Phosphatase 34 - 123 U/L 78 AST 13 - 35 U/L 29 ALT 7 - 38 U/L 31 Glucose 74 - 99 mg/dL 87 BUN 7 - 21 mg/dL 26 (H) Creatinine 0.58 - 0.96 mg/dL 1.05 (H) Sodium 136 - 144 mmol/L 141 Potassium 3.7 - 5.1 mmol/L 4.2 Chloride 97 - 105 mmol/L 97 CO2 22 - 30 mmol/L 35 (H) Anion Gap 9 - 18 mmol/L 9 eGFR >=60 mL/min/1.73m 54 (L) Prealbumin 17 - 36 mg/dL 17 MEDICATIONS: Current Outpatient Medications Medication Sig diazePAM (VALIUM) 2 mg tablet Take by mouth twice daily. Take 1 tablet in the AM and 1/2-1 tablet in the evening. warfarin (COUMADIN) 2.5 mg tablet 2.5 mg daily or as directed albuterol (PROVENTIL) 2.5 mg /3 mL (0.083 %) nebulizer solution Use 3 mL via nebulizer every 6 hours as needed for wheezing/shortness of breath. DX: J45.40 Hx of moderate persistent Asthma metoprolol succinate ER (TOPROL XL) 100 mg Take 1 tablet by mouth once daily. LORazepam (ATIVAN) 1 mg tablet Take 0.5 tablets by mouth twice daily for [address] (PROTONIX) 40 mg tablet Take 1 tablet by mouth twice daily. ferrous sulfate 325 mg (65 mg iron) tablet Take 1 tablet by mouth twice daily with meals. furosemide (LASIX) 40 mg tablet Take 1 tablet by mouth once daily. PARoxetine (PAXIL) 30 mg tablet Take 1 tablet by mouth once daily. nitroglycerin sublingual (NITROQUICK) 0.4 mg SL tablet DISSOLVE ONE TABLET UNDER THE TONGUE EVERY 5MINUTES NEEDED FOR CARDIAC/CHEST PAIN amLODIPine (NORVASC) 2.5 mg tablet Take 1 tablet by mouth once daily. iv contrast (will be provided with radiology test) CT Chest W -Inject, intravenously, once for 1 dose.No IV access, insert saline lock prior to the beginning of sedation, infusion, injection of imaging exam. Discontinue saline lock post exam. If Pt. has a central line or IVAD, may access for administration according to line specific nursing protocol. Once exam is complete flush line and de-accessaccording to line specific nursing protocol in the CT contrast administration guidelines link. ergocalciferol 50,000 unit capsule (VITAMIN D2, DRISDOL) Take 1 capsule by mouth every other week. baclofen (LIORESAL) 10 mg tablet Take 1 tablet by mouth three times daily as needed (muscle spasms). montelukast (SINGULAIR) 10 mg tablet Take 1 tablet by mouth daily at bedtime. pregabalin (LYRICA) 25 mg capsule Take 1 capsule by mouth daily at bedtime for 30 days. BREO ELLIPTA 200-25 mcg/dose inhaler INHALE 1 PUFF BY MOUTH ONCE DAILY SPIRIVA RESPIMAT 2.5 mcg/actuation inhaler INHALE 2 SPRAYS BY MOUTH ONCE DAILY AT APPROXIMATELY THESAME TIME EACH DAY buPROPion XL (WELLBUTRIN XL) 150 mg 24 hr tablet Take 1 tablet by mouth once daily. warfarin (COUMADIN) 3 mg tablet 2.5 mg MW and 4.5 mg all other days or as directed (Patient taking differently: 2.5 mg or as directed) potassium chloride ER (K-DUR, KLOR-CON) 20 mEq tablet Take 1 tablet by mouth once daily. warfarin (COUMADIN) 2.5 mg tablet 2.5 mg daily or as directed amiodarone (PACERONE) 200 mg tablet Take 100 mg by mouth once daily. albuterol HFA (PROAIR HFA) 90 mcg/actuation inhaler Inhale 2 Puffs as instructed every 4 hours as needed. budesonide-formoterol (SYMBICORT) 160-4.5 mcg/actuation inhaler Inhale 2 Puffs as instructed twice daily. acetaminophen (TYLENOL EXTRA STRENGTH) 500 mg tablet Take 1 tablet by mouth every 4 hours as neededfor Pain. RANGE FREQ? Nebulizer NEBULIZER FOR HOME USE and necessary supplies. DX: Hypoxemia, Pneumonia and Hemoptisis triamcinolone acetonide (NASACORT AQ) 55 mcg nasal inhaler Use 1 [place] in the nose once daily. pravastatin (PRAVACHOL) 80 mg tablet TAKE 1 TABLET BY MOUTH ONCE DAILY aspirin 81 mg chewable tablet Take 2 tablets by mouth once daily. ezetimibe(ZETIA 10 MG TAB) Take one(1) tablet daily. No current facility-administered medications for this visit. ALLERGIES: ALLERGIES Allergen Reactions Adhesive Rash Blistering at site of application. Dextromethorphan Other: See Comments, Mental Status Change Risperidone Other: See Comments Sulfa (Sulfonamide * Other: See Comments Renal dysfunction. Childhood reaction. Generalized swelling Celebrex [Celecoxib] Other: See Comments Migraine headache. Aricept [Donepezil] Myalgia muscle pain and difficulty walking Compazine [Prochlor* Other: See Comments low BP Crestor [Rosuvastat* GI Upset Gabapentin Intolerance Confusion, when coupled with norco Lipitor [Atorvastat* Myalgia Lisinopril Cough No Latex Allergy [O* Oxycodone Itching Penicillins Other: See Comments Heart palpitations. No rash or itch. Can take cephalosporins Prozac [Fluoxetine * Other: See Comments hallucinating Ultram [Tramadol Hc* Itching Codeine Itching PAST MEDICAL HISTORY Diagnosis Date Adjustment disorder with depressed mood Aortic valve disorder Dr. Mckay Carotid stenosis Compression deformity of vertebra Congestive heart failure (HCC) COPD (chronic obstructive pulmonary disease) (HCC) 01/03/2013 Esophageal reflux Normal EGD 12/2012 H/O aortic valve replacement INR should be 2.5 to 3.5 High blood pressure Hyperlipidemia Impaired glucose tolerance Intrinsic asthma 06/[address] done per Dr. Mckay Migraine Myalgia and myositis, unspecified Other forms of migraine Parkinsonism (HCC) Thyroid nodule Unspecified essential hypertension PAST SURGICAL HISTORY Procedure Laterality Date ANTERIOR COLPORRAPHY RPR CYSTOCELE W/CYSTO 2001 w/ uterosacral suspension CARDIOVERSION [facility]- Spring 2019 CLOSURE SEMILUNAR VALVE AORTIC/PULM SUTURE/PATCH 2003 had aortic valve replacement w/ bovine valve COLONOSCOPY FLX DX W/COLLJ SPEC WHEN PFRMD 01/15/2013 Colonoscopy COLSC FLX W/RMVL OF TUMOR POLYP LESION SNARE TQ 05/07/2017 Colonoscopy - cecal inflammatory polyps. Repeat in 5 yrs DISPLACEMENT THERAPY PROETZ TYPE x3 ESOPHAGOGASTRODUODENOSCOPY TRANSORAL DIAGNOSTIC 01/15/2013 EGD ESOPHAGOGASTRODUODENOSCOPY TRANSORAL DIAGNOSTIC 05/07/2017 EGD FOOT RIGHT OP SURGERY 05/05/2009 HEMORRHOIDECTOMY XTRNL 2/> COLUMN/GROUP LAPS VAGINAL HYSTERECTOMY UTERUS 250 GM/< usvvs, enterocele repair,apr,lsc pvdr,cysto,spt LOW BACK DISK SURGERY 06/2011 OOPHORECTOMY PARTIAL/TOTAL UNI/BI PAST SURGICAL HISTORY OF 04/2012 Thyroid [id number] PAST SURGICAL HISTORY OF aug and september 2011 cataract removal PAST SURGICAL HISTORY OF 2013 aortic valve with On-X valve PERCUTANEOUS AORTIC VALVE REPLACEMENT 09/2013 POSTERIOR COLPORRHAPHY, REPAIR RECTOCELE 2001 SINUS SURGERY PROC UNLISTED [address] Styles ([place]), [address] Wood, 1 in [place] TONSILLECTOMY PRIMARY/SECONDARY <AGE 11 TOTAL ABDOMINAL HYSTERECT W/WO RMVL TUBE OVARY age 31 FAMILY HISTORY Problem Relation Age of Onset Heart Mother Heart Father Diabetes Brother Hypertension Brother Lipids Brother Lipids Daughter other (Depression) Daughter GI Son Lipids Son Diabetes Sister Lipids Sister Social History Tobacco Use Smoking status: Never Smokeless tobacco: Never Tobacco comments: Father smoked in childhood home. Spouse non-smoker. Vaping Use Vaping Use: Never used Substance Use Topics Alcohol use: No Drug use: No Reviewed current medications, allergies, past medical history, surgical history, family history andsocial history today. REVIEW OF SYSTEMS All other reviewed and negative other than HPI. HEALTH MAINTENANCE: Reviewed health maintenance issues today and recommended the following in detail. SHINGRIX VACCINE(1 of 2) Never done DTAP,TDAP,TD(1 - Tdap) due on 06/30/2011 COVID-19 VACCINE(5 - Pfizer series) due on 10/28/2022 VITALS: BP 112/62 Pulse (!) 50 Wt 49.4 kg (109 lb) BMI 21.29 kg/m Last 4 Encounter Wt Readings: Date: Wt: 03/26/2023 49.4 kg (109 lb) 02/26/2023 49.4 kg (109 lb) 01/01/2023 52.2 kg (115 lb) 12/04/2022 53.1 kg (117 lb) PHYSICAL EXAMINATION: General appearance: Well appearing, alert, in no acute distress, well-hydrated, well nourished. Skin: Skin color, texture, turgor normal, no suspicious rashes or lesions Head: Normocephalic, no masses, lesions, tenderness or abnormalities Lungs: coarse breath sounds bilaterally. Moving air well. Heart: RRR today. Normal s1 and s2 Abdomen: Normal abdominal exam, Abdomen soft, non-tender. Bowel sounds normal. No masses, organomegaly Extremities: No deformities, edema, skin discoloration, clubbing or cyanosis. Good capillary refill. Musculoskeletal: No joint swelling, deformity, or tenderness ASSESSMENT/PLAN: 1. Weight loss - ICD9: 783.21, ICD10: R63.4 (primary diagnosis) - stable. Will follow. Get esophagogram. 2. Paroxysmal atrial fibrillation (HCC) - ICD9: 427.31, ICD10: I48.0 - continue meds. 3. Aortic valve stenosis with insufficiency, etiology of cardiac valve disease unspecified - ICD9: 424.1, ICD10: I35.2 - per cardiology 4. Heart failure, diastolic, chronic (HCC) - ICD9: 428.32, ICD10: I50.32 - appears stable. Kolby Kim MD documented in this encounterWhite Hospital08-22-2023 History of Present illness Narrative* Tia Mock RN - 03/20/2023 2:24 PM EDT spouse notified of information * Kolby Kim MD - 03/20/2023 1:54 PM EDT agree * Tia Mock RN - 03/20/2023 1:39 PM EDT patient had inr completed at [facility] patients inr is 1.6 (patients inr range is 2.5-3.5) patient is currently taking 5mg Wed and 2.5mg all other days patients last dose change was on 03/06/23 due to a low level of 1.3 (dose at that time was 2.5mg daily) patient has had no changes in medication except for coumadin and no missed doses and no change in diet Recommend: patient change coumadin to 5mg Tues,Th and 2.5mg all other days and recheck inr in 2 weeks patient has been scheduled for a 2 week follow up inr on 04/03/23 please review and advise on recommendation documented in this encounterWhite Hospital08-14-2023 History of Present illness Narrative* Sunny Estrella RN - 03/12/2023 4:10 PM EDT M Telephonic Outreach Provider Action/FYI Reached patient to follow up on low pulse ox readings. Contacted 911 as advised. Unable to give me pulse ox readings taken by squad or ER States they do not treat this here ? Patient states they checked her for pneumonia-no signs of this Patient is attempting to find the paperwork for [facility] Patient's spouse is not a home. Call disconnected Attempted several times to reach patient- phone asking to enter phone # area code and phone number,then just repeats Patient called back Unable to locate paperwork form ER Asked if spouse was there- states no. Asked when he is expected tomorrow a few weeks don't know At that time spouse got on phone. States readings were in the 90's when taken by EMS and in ER Reports reading at time of call 93%? Spouse reports patient at baseline. Will await paperwork from ER into system CHF/COPD/CKD Contacted for: Routine Telephonic Outreach Contact made with patient: Yes Patient identified by name and date of . Discussed care with patient and spouse Are you experiencing any new or worsening symptoms you need to talk about today? No Disease Specific Do you check your blood pressure at home? No Do you have new or worsening shortness of breath with activity? No Do you have new or worsening trouble breathing while lying flat? No Do you have new or worsening swelling of legs, feet or ankles? No Do you feel like you are dehydrated for any reason, including not being able to eat or drink normally, or having less urine/much darker urine than normal for you? No Do you check your daily weight at home? No and Do you have new or worsening cough? No Do you have new or worsening wheezing? No Do you need to use your rescue (Albuterol) inhaler or nebulizer more often than normal? No Based on meat pumper, the following disposition is advised: No symptoms or symptoms present, not severe. Routed to: No Action Needed ROMELIA Education Provided this Outreach: No Sunny Estrella RN March 12, 2023 4:38 PM documented in this encounterWhite Hospital08-10-2023 Discharge summary Author Forrest Smiley [facility] March 08, 2023 7:21pm Note Date/Time March 08, 2023 5: 05pm [facility] Medical Records Department [address] [place] [address] Emergency Department Summary 03/08/23 MR#: [id number] Acct: [id number] Name: ELZA CHU Rep #:[id number] : 1945 77 From: Forrest Smiley DO PCP: Dr. Kolby Kim MD Status:REG E R Location: ED HPI History of Present Illness Chief Complaint: Shortness of Breath Narrative Narrative: MD 7-year-old female with history of paroxysmal A-fib, CHF, recurrent Pseudomonas pneumonia, COPD on 4 L of oxygen at baseline, anticoagulated on Coumadin presenting with shortness of breath for 3 days. She has a productive cough. She has not had a fever that she knows of. She does not have any nauseaor vomiting. She is having abdominal pain. She does not have a lot of swellingin her legs but she does get it from time to time. Patient was checking her pulses at home and noted that her pulse was in the 50s and 60s. She states it went up to the 80s at 1 point but did not go any higher than that. She did not have any chest pain with the heart rate. Blood pressure has been okay. Her pulse ox has been okay at home as well. 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 Nonrheumatic aortic valve regurgitation Nonspecific chest pain NSTEMI, initial episode of care Obesity Palpitations Severe sepsis Syncope and collapse Home Medications pantoprazole 40 mg tablet,delayed release 40 mg PO BID ACID REFLUX 01/14/15 [History Last Taken 07/07/20] bupropion HCl 150 mg 24 hr tablet, extended release 150 mg PO DAILY DEPRESSION 11/15/15 [History Last Taken 07/07/20] montelukast 10 mg tablet 10 mg PO QHS ALLERGIES 05/03/17 [History Last Taken 07/06/20] potassium chloride 20 mEq tablet,extended release(part/cryst) 20 meq PO DAILY SUPPLEMENT 05/03/17 [History Last Taken 07/06/20] lorazepam 0.5 mg tablet 0.5 mg PO BID PRN ANXIETY 09/04/17 [History Last Taken 07/07/20] furosemide 40 mg tablet 40 mg PO DAILY WATER PILL ##0 12/06/17 [Rx Last Taken 07/06/20] cholecalciferol (vitamin D3) 1,250 mcg (50,000 unit) capsule 50,000 unit PO FR SUPPLEMENT 06/16/19 [History Last Taken 06/25/20] acetaminophen 650 mg tablet,extended release 650 mg PO Q6H PRN BACK PAIN 07/07/20 [History Last Taken 07/07/20] albuterol sulfate 2.5 mg/3 mL (0.083 %) solution for nebulization 2.5 mg (3 mL) inhalation Q4H PRN #25 vials 05/21/21 [Rx Last Taken Unknown] triamcinolone acetonide 55 mcg nasal spray aerosol (Nasacort) 1 spray intranasalDAILY #16.9 mL 06/10/21 [Rx Last Taken Unknown] famotidine 20 mg tablet 20 mg PO DAILY PRN gerd 11/29/21 [History Last Taken Unknown] ferrous sulfate 325 mg (65 mg iron) tablet 325 mg PO BID Check with primary doctor 11/29/21 [History Last Taken Unknown] fluticasone furoate 200 mcg-vilanterol 25 mcg/dose inhalation powder (Breo Ellipta) 1 inh inhalation DAILY #60 ea 08/07/22 [Rx Last Taken Unknown] pravastatin 80 mg tablet 80 mg PO QHS CHOLESTEROL LOWERING #90 tabs 09/25/22 [Rx Last Taken Unknown] tiotropium bromide 2.5 mcg/actuation mist for inhalation (Spiriva Respimat) 2 puff inhalation QDAY #3 ea 10/17/22 [Rx Last Taken Unknown] amiodarone 200 mg tablet 100 mg PO DAILY Check with primary doctor 10/20/22 [History Last Taken Unknown] ezetimibe 10 mg tablet (Zetia) 10 mg PO DAILY Check with primary doctor 10/20/22[History Last Taken Unknown] warfarin 2.5 mg tablet 2.5 mg PO DAILY Check with primary doctor 10/20/22 [History Last Taken Unknown] aspirin 81 mg tablet,delayed release 81 mg PO BREAKFAST 30 days #30 tabs 11/03/22 [Rx Last Taken Unknown] metoprolol succinate 100 mg tablet,extended release 24 hr 100 mg PO DAILY 30 days #30 tabs 11/03/22 [Rx Last Taken Unknown] nitroglycerin 0.4 mg sublingual tablet 0.4 mg sublingual Q5M PRN Cardiac/Chest Pain 30 days #30 tabs 11/03/22 [Rx Last Taken Unknown] amlodipine 2.5 mg tablet 2.5 mg PO DAILY #90 tabs 11/20/22 [Rx Last Taken Unknown] paroxetine HCl 20 mg tablet 30 mg PO DAILY Check with primary doctor 12/07/22 [History Last Taken Unknown] albuterol sulfate 90 mcg/actuation aerosol inhaler 2 puff inhalation Q6H PRN shortness of breath or wheezing 03/08/23 [History Last Taken Unknown] baclofen 10 mg tablet 10 mg PO Q8H PRN muscle spasm 03/08/23 [History Last Taken Unknown] ergocalciferol (vitamin D2) 1,250 mcg (50,000 unit) capsule 1,250 mcg PO QWEEK 03/08/23 [History Last Taken Unknown] pregabalin 25 mg capsule 25 mg PO QHS 03/08/23 [History Last Taken Unknown] Allergy/AdvReac Type Severity Reaction Status Date / Time donepezil Allergy Severe shortness Verified 02/05/23 11:36 of breath risperidone Allergy Severe Confusion Verified 02/05/23 11:36 Sulfa (Sulfonamide Allergy Swelling Verified 02/05/23 11:36 Antibiotics) celecoxib [From Celebrex] AdvReac Severe Swelling Verified 02/05/23 11:36 dextromethorphan AdvReac Severe hallucinati Verified 02/05/23 11:36 [From Delsym] on adhesive AdvReac blisters Verified 02/05/23 11:36 codeine AdvReac Itching Verified 02/05/23 11:36 levofloxacin [From Levaquin] AdvReac pain in Verified 02/05/23 11:36 legs and swelling lisinopril AdvReac cough Verified 02/05/23 11:36 oxycodone [Oxycodone] AdvReac Itching Verified 02/05/23 11:36 oxycodone HCl [From Percocet] AdvReac Itching Verified 02/05/23 11:36 Penicillins AdvReac heart Verified 02/05/23 11:36 palpitations prochlorperazine edisylate AdvReac Low blood Verified 02/05/23 11:36 [From Compazine] pressure prochlorperazine maleate AdvReac Low blood Verified 02/05/23 11:36 [From Compazine] pressure tramadol HCl [From Ultram] AdvReac Itching Verified 02/05/23 11:36 Family History Mother Arthritis CAD (coronary artery disease) Father Arthritis High cholesterol CAD (coronary artery disease) Sister Diabetes High cholesterol Hypertension Brother Diabetes High cholesterol Hypertension Surgical History H/O aortic valve replacement History of back surgery History of foot surgery History of hysterectomy History of mechanical aortic valve replacement (~10/07/13) History of sinus surgery Social History household members: spouse number of children: 2 Smoking Status: Never smoker alcohol intake: never substance use type: does not use caffeine: Yes Type: coffee what type of physical activity do you participate in: none seatbelt use: always do you feel safe at home: Yes ROS ROS ED Constitutional Constitutional ED: Denies chills or fever(s) Eyes Eyes: Denies change in vision or diplopia ENT ENT ED: Denies rhinorrhea or sore throat Cardiovascular Cardiovascular: Denies chest pain or palpitations Respiratory/Chest Respiratory/Chest: Reports cough and dyspnea Gastrointestinal Gastrointestinal: Denies abdominal pain, nausea, vomiting or other Genitourinary Genitourinary ED: Denies dysuria or hematuria Musculoskeletal Musculoskeletal: Denies arthralgias Integumentary Denies abscess Neurologic Neurologic: Denies headache(s) or paresthesias Psychiatric Psychiatric: Denies anxiety or depression EXAM Physical Exam Const Vital Signs: 03/08/23 16:17 03/08/23 16:27 03/08/23 16:16 Temperature 97.7 F L Temperature Source Temporal Pulse Rate 64 Respiratory Rate 24 H Respiratory Effort Normal Non-Labored Respiratory Depth Normal Respiratory Pattern Normal Blood Pressure 133/67 H Blood Pressure Mean 89 Pulse Ox 98 Oxygen Delivery Method Nasal Cannula Nasal Cannula Nasal Cannula Oxygen Flow Rate (L/min) 4 4 Fraction of Inspired Oxygen (FIO2) 4 03/08/23 16:56 Temperature Temperature Source Pulse Rate Respiratory Rate Respiratory Effort Respiratory Depth Respiratory Pattern Blood Pressure Blood Pressure Mean Pulse Ox Oxygen Delivery Method Nasal Cannula Oxygen Flow Rate (L/min) 4 Fraction of Inspired Oxygen (FIO2) Positive well nourished HEENT Reports dry mucous membranes atraumatic Mouth ED: Yes dry mucous membranes Mouth: dry mucous membranes Eyes PERRL and EOMs intact bilaterally Neck no lymphadenopathy and supple Resp normal respiratory effort Auscultation: rhonchi Cardio regular rate and regular rhythm GI non-tender and non-distended Extremity General Extremety ED: Negative for edema or tenderness General Extremity: Negative for edema Neuro oriented x3, CN's II-XII intact bilaterally and no sensory deficits noted Sensorium / Orientation: alert Motor Exam: general weakness Psych mental status grossly normal MDM MDM MDM Narrative Medical decision making narrative: Patient with dyspnea and generalized fatigue. Differential includes acute coronary syndrome, CHF, COPD, pneumonia, dehydration, electrolyte abnormalities,anemia, neural etiology. CBC will be obtained to assess white blood cell count,hemoglobin, platelets. To assess renal function electrolytes. PT/INR because the patient is on Coumadin and assess her INR level. High-sensitivity troponin and EKG will be obtained to rule out ischemia. BNP to rule out CHF. COVID and flu swabs will be obtained. Chest x-ray will be obtained to rule out CHF or pneumonia. CBC does not show leukocytosis. Hemoglobin macular stable. Platelets are normal. BMP is normal. High-sensitivity troponin 18. BNP 135 and this is normal for her. Chest x-ray my interpretation shows no acute process. Radiologist interprets this and agrees. EKG normal sinus rhythm with a ventricular of 60 bpm without sign of ischemic change or ectopy on my interpretation. Patient on her baseline oxygen and she is not wheezing. She iswell-appearing with normal vital signs. At this point I think she can be discharged home Impression: 1. Dyspnea Lab Data Labs: Laboratory Results - last 24 hr 03/08/23 17:20 WBC 6.9 RBC 4.30 Hgb 11.5 L Hct 40.0 MCV 93.0 MCH 26.7 L MCHC 28.8 L RDW Std Deviation 50.0 H RDW Coeff of Loki 14.6 Plt Count 298 MPV 10.2 Immature Gran % (Auto) 0.300 Neut % (Auto) 73.7 H Lymph % (Auto) 10.4 L [place] % (Auto) 8.1 Eos % (Auto) 6.9 H Baso % (Auto) 0.6 Absolute Neuts (auto) 5.1 Absolute Lymphs (auto) 0.72 L Nucleated RBC % 0 PT 18.6 H INR 1.5 Sodium 142 Potassium 3.5 Chloride 101 Carbon Dioxide 40.0 H Anion Gap 1 L BUN 22 H Creatinine 0.84 Est GFR (MDRD) Af Amer 85 Est GFR (MDRD) Non-Af 70 BUN/Creatinine Ratio 26.3 H Glucose 93 Calcium 9.1 Troponin I High Sens 18 B-Natriuretic Peptide 135.0 H Radiography Diagnostic Testing: Clinical Impression(s) from Imaging Studies Chest X-Ray 03/08/23 17:26 IMPRESSION: Incomplete expansion of the lungs. Subsegmental atelectasis or scarring in the lung bases. Electronically Signed: Berny Starr MD at 17:48 EDT , Discharge Plan Triage Chief Complaint: Shortness of Breath ED Provider: Forrest Smiley Dx/Rx/DC Orders Instructions: ED Dyspnea Prescriptions: No Action cholecalciferol (vitamin D3) 50,000 unit capsule 50,000 unit PO FR ferrous sulfate 325 mg (65 mg iron) tablet 325 mg PO BID Patient Comments: TAKE 1 TABLET BY MOUTH TWICE DAILY WITH MEALS amlodipine 2.5 mg tablet 2.5 mg PO DAILY Qty: 90 3RF pantoprazole 40 MG tablet 40 mg PO BID Patient Comments: stomach lorazepam 0.5 MG tablet 0.5 mg PO BID PRN (Reason: ANXIETY) Patient Comments: anxiety bupropion HCl 150 MG tablet extended release 24 hr 150 mg PO DAILY Patient Comments: depression potassium chloride 20 MEQ tablet 20 meq PO DAILY montelukast 10 MG tablet 10 mg PO QHS furosemide 40 MG tablet 40 mg PO DAILY Qty: 0 0RF Hold Instructions: Resume on 10/25/22. acetaminophen 650 MG tablet extended release 650 mg PO Q6H PRN (Reason: BACK PAIN) famotidine 20 mg tablet 20 mg PO DAILY PRN (Reason: gerd) Patient Comments: TAKE 1 TABLET BY MOUTH AT BEDTIME NEEDED paroxetine HCl 20 mg tablet 30 mg PO DAILY albuterol sulfate 2.5 MG/3 ML solution for nebulization 2.5 mg inhalation Q4H PRN Qty: 25 0RF Rx Instructions: Use q4 hours and PRN for wheezing amiodarone 200 mg tablet 100 mg PO DAILY ezetimibe [Zetia] 10 mg tablet 10 mg PO DAILY warfarin 2.5 mg Tablet 2.5 mg PO DAILY metoprolol succinate 100 mg Tablet Extended Release 24 Hr 100 mg PO DAILY 30 Days Qty: 30 2RF nitroglycerin 0.4 mg Tablet, Sublingual 0.4 mg sublingual Q5M PRN (Reason: Cardiac/Chest Pain) 30 Days Qty: 30 0RF aspirin 81 mg Tablet,Delayed Release (Dr/Ec) 81 mg PO BREAKFAST 30 Days Qty: 30 2RF ergocalciferol (vitamin D2) 1,250 mcg (50,000 unit) capsule 1,250 mcg PO QWEEK Patient Comments: TAKE 1 CAPSULE BY MOUTH ONCE A WEEK pregabalin 25 mg capsule 25 mg PO QHS baclofen 10 mg tablet 10 mg PO Q8H PRN (Reason: muscle spasm) Patient Comments: TAKE 1 TABLET BY MOUTH THREE TIMES DAILY NEEDED FOR MUSCLE SPASMS albuterol sulfate 90 mcg/actuation HFA aerosol inhaler 2 puff inhalation Q6H PRN (Reason: shortness of breath or wheezing) Rx Instructions: administer with spacer triamcinolone acetonide [Nasacort] 55 mcg aerosol,spray 1 spray INTRANASAL DAILY Qty: 16.9 6RF fluticasone furoate-vilanterol [Breo Ellipta] 200-25 mcg/dose blister with device 1 inh inhalation DAILY Qty: 60 11RF pravastatin 80 mg tablet 80 mg PO QHS Qty: 90 3RF Spiriva Respimat 2.5 mcg/actuation mist 2 puff inhalation QDAY Qty: 3 3RF Rx Instructions: administer at approximately the same time(s) each day Primary Care Provider: Kolby Kim Referrals: Kolby Kim MD [Primary Care Provider] - Disposition Disposition: Home, Self Care What to do if you have Problems For any increased pain, shortness of breath, bleeding, nausea or vomiting, chestpain, or any unexpected problems, contact your Primary Care Provider. Call [facility] ([phone]) or report to the closest Emergency Room. Call 911 if necessary. 03/08/231920 <Electronically signed by Forrest Smiley DO> Cosigner Signature (if applicable): CC: Dr. Kolby Kim MD ~ Signed [facility] Work Phone: [phone] 836-946708-10-2023 History of Present illness Narrative* Sunny Estrella RN - 03/08/2023 8:43 AM EDT CDM Telephonic Outreach Provider Action/FYI Feel weak, legs hurt, lightheaded. States she has been getting pulse ox readings in the 50% range on 4L oxygen. Asked spouse to ensure pulse ox sensor is clean. Asks to wipe with clean damp paper towel. In future can wipe with alcohol/detergent. Make sure residue is removed. After completing above reading of 76% [facility] nurse arrived while business administration professor. She has her own pulse ox and getting readings 78%. B/P 128/62 HR 64 Advised to hang up and call 911 Patient agrees. Patient will be taken to [facility]. PCC will follow up with spouse. Contacted for: Routine Telephonic Outreach Contact made with patient: Yes Patient identified by name and date of . Discussed care with patient and spouse Are you experiencing any new or worsening symptoms you need to talk about today? Yes Based on meat pumper, the following disposition is advised: CALL 911 / GO TO THE EMERGENCY ROOM. The patient, or person on the call, states understanding and [facility] Sunny Estrella RN March 08, 2023 3:42 PM documented in this encounterWhite Hospital08-09-2023 History of Present illness Narrative* Tia Mock RN - 03/07/2023 3:35 PM EDT PATIENT NOTIFIED OF INFORMATION * Kolby Kim MD - 03/07/2023 2:39 PM EDT 5 mg on Sun. 2.5 mg a day rest of the week. Recheck one week. * Tia Mock RN - 03/07/2023 1:36 PM EDT patient had inr completed at [facility] patients inr is 1.3 (patients inr range is 2.5-3.5) patient is currently taking 2.5mg daily patients last dose change was on 01/23/23 due to a low level of 1.8 (dose at that time was 1.25mg Mon and 2.5mg all other days) patient has had no changes in medication and no missed doses and no change in diet Advised patient that they would be contacted regarding medication dose and when to follow up after information is reviewed by provider. After provider review please contact the patient with information and schedule follow up appointment with coumadin clinic. ok to leave a detailed message if no answer FYI- patient has been scheduled for a 2 week follow up inr on 03-20-23 documented in this encounterWhite Hospital07-31-2023 History of Present illness Narrative* Kolby Kim MD - 02/26/2023 2:43 PM EDT Patient presents with: Follow Up HPI: Patient presents today for office visit for follow up Has had issues with poor appetite. Has dental issues. Feels full easily. Eats very slowly. Can sometimes feel like things stick. Has some early satiety. Discussed doing an esophagogram and speech eval. Discussed increasing boost to bid or tid. Is only taking it once a day currently. No actually choking or worsening cough. She is adamant she does not want a feeding tube. Has seen pulmonary and cardiology recently. Breathing is not worse. See previous ov: Paxil increased at last OV to 30 mg daily. She feels it's helped her appetite some. Now has desire to eat. Still losing weight. No suicidal ideation. No side effects. Moods are improving. No new stomach pain. Discussed using boost or ensure daily. She and her do not want aggressive work up of her weight loss. Breathing is stable. is now doing her meds. Home health is coming twice a week. MEDICATIONS: Current Outpatient Medications Medication Sig metoprolol succinate ER (TOPROL XL) 100 mg Take 1 tablet by mouth once daily. LORazepam (ATIVAN) 1 mg tablet Take 0.5 tablets by mouth twice daily for [address] (PROTONIX) 40 mg tablet Take 1 tablet by mouth twice daily. ferrous sulfate 325 mg (65 mg iron) tablet Take 1 tablet by mouth twice daily with meals. furosemide (LASIX) 40 mg tablet Take 1 tablet by mouth once daily. PARoxetine (PAXIL) 30 mg tablet Take 1 tablet by mouth once daily. nitroglycerin sublingual (NITROQUICK) 0.4 mg SL tablet DISSOLVE ONE TABLET UNDER THE TONGUE EVERY 5MINUTES NEEDED FOR CARDIAC/CHEST PAIN amLODIPine (NORVASC) 2.5 mg tablet Take 1 tablet by mouth once daily. iv contrast (will be provided with radiology test) CT Chest W -Inject, intravenously, once for 1 dose.No IV access, insert saline lock prior to the beginning of sedation, infusion, injection of imaging exam. Discontinue saline lock post exam. If Pt. has a central line or IVAD, may access for administration according to line specific nursing protocol. Once exam is complete flush line and de-accessaccording to line specific nursing protocol in the CT contrast administration guidelines link. ergocalciferol 50,000 unit capsule (VITAMIN D2, DRISDOL) Take 1 capsule by mouth every other week. baclofen (LIORESAL) 10 mg tablet Take 1 tablet by mouth three times daily as needed (muscle spasms). montelukast (SINGULAIR) 10 mg tablet Take 1 tablet by mouth daily at bedtime. pregabalin (LYRICA) 25 mg capsule Take 1 capsule by mouth daily at bedtime for 30 days. BREO ELLIPTA 200-25 mcg/dose inhaler INHALE 1 PUFF BY MOUTH ONCE DAILY SPIRIVA RESPIMAT 2.5 mcg/actuation inhaler INHALE 2 SPRAYS BY MOUTH ONCE DAILY AT APPROXIMATELY THESAME TIME EACH DAY buPROPion XL (WELLBUTRIN XL) 150 mg 24 hr tablet Take 1 tablet by mouth once daily. warfarin (COUMADIN) 3 mg tablet 2.5 mg MW and 4.5 mg all other days or as directed (Patient taking differently: 2.5 mg or as directed) warfarin (COUMADIN) 2.5 mg tablet 2.5 mg MWF and 4.5 mg all other days or as directed (Patient taking differently: 2.5 mg daily or as directed) potassium chloride ER (K-DUR, KLOR-CON) 20 mEq tablet Take 1 tablet by mouth once daily. albuterol (PROVENTIL) 2.5 mg /3 mL (0.083 %) nebulizer solution Use 3 mL via nebulizer every 6 hours as needed for wheezing/shortness of breath. DX: J45.40 Hx of moderate persistent Asthma warfarin (COUMADIN) 2.5 mg tablet 2.5 mg daily or as directed amiodarone (PACERONE) 200 mg tablet Take 100 mg by mouth once daily. albuterol HFA (PROAIR HFA) 90 mcg/actuation inhaler Inhale 2 Puffs as instructed every 4 hours as needed. budesonide-formoterol (SYMBICORT) 160-4.5 mcg/actuation inhaler Inhale 2 Puffs as instructed twice daily. acetaminophen (TYLENOL EXTRA STRENGTH) 500 mg tablet Take 1 tablet by mouth every 4 hours as neededfor Pain. RANGE FREQ? Nebulizer NEBULIZER FOR HOME USE and necessary supplies. DX: Hypoxemia, Pneumonia and Hemoptisis triamcinolone acetonide (NASACORT AQ) 55 mcg nasal inhaler Use 1 [place] in the nose once daily. pravastatin (PRAVACHOL) 80 mg tablet TAKE 1 TABLET BY MOUTH ONCE DAILY aspirin 81 mg chewable tablet Take 2 tablets by mouth once daily. ezetimibe(ZETIA 10 MG TAB) Take one(1) tablet daily. No current facility-administered medications for this visit. ALLERGIES: ALLERGIES Allergen Reactions Adhesive Rash Blistering at site of application. Dextromethorphan Other: See Comments, Mental Status Change Risperidone Other: See Comments Sulfa (Sulfonamide * Other: See Comments Renal dysfunction. Childhood reaction. Generalized swelling Celebrex [Celecoxib] Other: See Comments Migraine headache. Aricept [Donepezil] Myalgia muscle pain and difficulty walking Compazine [Prochlor* Other: See Comments low BP Crestor [Rosuvastat* GI Upset Gabapentin Intolerance Confusion, when coupled with norco Lipitor [Atorvastat* Myalgia Lisinopril Cough No Latex Allergy [O* Oxycodone Itching Penicillins Other: See Comments Heart palpitations. No rash or itch. Can take cephalosporins Prozac [Fluoxetine * Other: See Comments hallucinating Ultram [Tramadol Hc* Itching Codeine Itching PAST MEDICAL HISTORY Diagnosis Date Adjustment disorder with depressed mood Aortic valve disorder Dr. Mckay Carotid stenosis Compression deformity of vertebra Congestive heart failure (HCC) COPD (chronic obstructive pulmonary disease) (HCC) 01/03/2013 Esophageal reflux Normal EGD 12/2012 H/O aortic valve replacement INR should be 2.5 to 3.5 High blood pressure Hyperlipidemia Impaired glucose tolerance Intrinsic asthma 06/[address] done per Dr. Mckay Migraine Myalgia and myositis, unspecified Other forms of migraine Parkinsonism (HCC) Thyroid nodule Unspecified essential hypertension PAST SURGICAL HISTORY Procedure Laterality Date ANTERIOR COLPORRAPHY RPR CYSTOCELE W/CYSTO 2001 w/ uterosacral suspension CARDIOVERSION [facility]- Spring 2019 CLOSURE SEMILUNAR VALVE AORTIC/PULM SUTURE/PATCH 2003 had aortic valve replacement w/ bovine valve COLONOSCOPY FLX DX W/COLLJ SPEC WHEN PFRMD 01/15/2013 Colonoscopy COLSC FLX W/RMVL OF TUMOR POLYP LESION SNARE TQ 05/07/2017 Colonoscopy - cecal inflammatory polyps. Repeat in 5 yrs DISPLACEMENT THERAPY PROETZ TYPE x3 ESOPHAGOGASTRODUODENOSCOPY TRANSORAL DIAGNOSTIC 01/15/2013 EGD ESOPHAGOGASTRODUODENOSCOPY TRANSORAL DIAGNOSTIC 05/07/2017 EGD FOOT RIGHT OP SURGERY 05/05/2009 HEMORRHOIDECTOMY XTRNL 2/> COLUMN/GROUP LAPS VAGINAL HYSTERECTOMY UTERUS 250 GM/< usvvs, enterocele repair,apr,lsc pvdr,cysto,spt LOW BACK DISK SURGERY 06/2011 OOPHORECTOMY PARTIAL/TOTAL UNI/BI PAST SURGICAL HISTORY OF 04/2012 Thyroid [id number] PAST SURGICAL HISTORY OF aug and september 2011 cataract removal PAST SURGICAL HISTORY OF 2013 aortic valve with On-X valve PERCUTANEOUS AORTIC VALVE REPLACEMENT 09/2013 POSTERIOR COLPORRHAPHY, REPAIR RECTOCELE 2001 SINUS SURGERY PROC UNLISTED [address] Styles ([place]), [address], 1 in [place] TONSILLECTOMY PRIMARY/SECONDARY <AGE 11 TOTAL ABDOMINAL HYSTERECT W/WO RMVL TUBE OVARY age 31 FAMILY HISTORY Problem Relation Age of Onset Heart Mother Heart Father Diabetes Brother Hypertension Brother Lipids Brother Lipids Daughter other (Depression) Daughter GI Son Lipids Son Diabetes Sister Lipids Sister Social History Tobacco Use Smoking status: Never Smokeless tobacco: Never Tobacco comments: Father smoked in childhood home. Spouse non-smoker. Vaping Use Vaping Use: Never used Substance Use Topics Alcohol use: No Drug use: No Reviewed current medications, allergies, past medical history, surgical history, family history andsocial history today. REVIEW OF SYSTEMS All other reviewed and negative other than HPI. VITALS: BP 110/62 Pulse 66 Wt 49.4 kg (109 lb) BMI 21.29 kg/m Last 4 Encounter Wt Readings: Date: Wt: 02/26/2023 49.4 kg (109 lb) 01/01/2023 52.2 kg (115 lb) 12/04/2022 53.1 kg (117 lb) 12/01/2022 54.4 kg (120 lb) PHYSICAL EXAMINATION: General appearance: Well appearing, alert, in no acute distress, well-hydrated, well nourished. Skin: Skin color, texture, turgor normal, no suspicious rashes or lesions Head: Normocephalic, no masses, lesions, tenderness or abnormalities Lungs: chronic rales. Heart: RRR, audible click, gallop, or rubs. No ectopy Abdomen: Normal abdominal exam, Abdomen soft, non-tender. Bowel sounds normal. No masses, organomegaly Extremities: No deformities, edema, skin discoloration, clubbing or cyanosis. Good capillary refill. Musculoskeletal: No joint swelling, deformity, or tenderness Peripheral pulses: Normal ASSESSMENT/PLAN: 1. Dysphagia, unspecified type - ICD9: 787.20, ICD10: R13.10 (primary diagnosis) - is adamant about not wanting feeding tubes etc. Willing to swallow eval. Follow weight. Suggested she use boost at least twice a day. Already seeing palliative - XR ESOPHAGRAM 2. Moderate persistent asthma without complication - ICD9: 493.90, ICD10: J45.40 - per pulmonary - ALBUTEROL SULFATE 2.5 MG/3 ML (0.083 %) SOLUTION FOR NEBULIZATION 3. Chronic obstructive pulmonary disease, unspecified COPD type (HCC) - ICD9: 496, ICD10: J44.9 - as above. 4. Heart failure, diastolic, chronic (HCC) - ICD9: 428.32, ICD10: I50.32 - appears stable. 5. 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 congestive heart failure and stage 3 chronic kidney disease, unspecified whether stage 3a or 3b CKD (HCC) - ICD9: 404.91, 428.32, 428.0, 585.3, ICD10: I13.0, I50.32, N18.30 - Controlled - Continue current medications 6. Weight loss - ICD9: 783.21, ICD10: R63.4 - follow labs - CBC + DIFF - COMP METABOLIC PANEL - PREALBUMIN BLD 7. Hyperglycemia - ICD9: 790.29, ICD10: R73.9 - HGB A1C Kolby Kim MD documented in this encounterWhite Hospital07-13-2023 History of Present illness Narrative* Sunny Estrella RN - 02/08/2023 9:26 AM EDT [facility] Telephonic Outreach Provider Action/FYI Reports she gets anxious at night. Able to relax herself using slow breathing technique Wt down a few pounds per pt. Does not weigh at home. Last wt 01/01 OV 115. Encouraged to drink ensure/boost. States she tries. Oxygen remains at 4L Denies any worsening lower extremity edema. Chronic cough Continues with [facility] support 2x/wk Encouragement/support given. Appreciative of follow up CHF/COPD/CKD Contacted for: Routine Telephonic Outreach Contact made with patient: Yes Patient identified by name and date of . Discussed care with patient Are you experiencing any new or worsening symptoms you need to talk about today? No Disease Specific Do you check your blood pressure at home? No Do you have new or worsening shortness of breath with activity? Yes Do you have new or worsening trouble breathing while lying flat? No Do you have new or worsening swelling of legs, feet or ankles? No Do you feel like you are dehydrated for any reason, including not being able to eat or drink normally, or having less urine/much darker urine than normal for you? No Do you check your daily weight at home? No and Do you have new or worsening cough? No Do you have new or worsening wheezing? No Do you need to use your rescue (Albuterol) inhaler or nebulizer more often than normal? No Based on meat pumper, the following disposition is advised: No symptoms or symptoms present, not severe. Routed to: No Action Needed ROMELIA Education Provided this Outreach: Yes Sunny Estrella RN February 08, 2023 2:53 PM documented in this encounterWhite Hospital07-11-2023 History of Present illness Narrative* Kolby Kim MD - 02/06/2023 5:24 PM EDT agree * Tia Mock RN - 02/06/2023 2:34 PM EDT patient had inr completed at [facility] patients inr is 2.6 (patients inr range is 2.0-3.0) patient is currently taking 2.5mg daily patients last dose change was on 01/23/23 due to a low level of 1.8 (dose at that time was 1.25mg Mon and 2.5mg all other days) patient has had no changes in medication and no missed doses and no change in diet Advised patient to continue on the same dose(s) and that they would only be contacted regarding dosage and follow up instructions after review with provider, if a change is needed. Written instructions given and patient verbalized understanding. Presently scheduled in 4 weeks (03/06/23) for follow up INR. documented in this encounterWhite Hospital07-10-2023 Miscellaneous Notes* Telephone Encounter - Criss Vanessa MA - 02/05/2023 8:57 AM EDT [place] 01/01/23 NOV 02/26/23 Criss Vanessa MA * Telephone Encounter - Becca Marie - 02/05/2023 8:26 AM EDT Patient has been identified by name and date of : Yes Last office visit in this department: 01/01/2023 RX INSTRUCTIONS: Patient aware RX will be sent to pharmacy. No need to notify patient. Patient phones requesting refills as follows: Requested Prescriptions Pending Prescriptions Disp Refills LORazepam (ATIVAN) 1 mg tablet 90 tablet 0 Sig: Take 0.5 tablets by mouth twice daily for [address] (PROTONIX) 40 mg tablet 180 tablet 3 Sig: Take 1 tablet by mouth twice daily. Please review and advise. Becca Santoro documented in this encounterWhite Hospital06-27-2023 History of Present illness Narrative* Tai Mock RN - 01/23/2023 3:48 PM EDT spouse notified for information * Kolby Kim MD - 01/23/2023 1:46 PM EDT Change to 2.5 mg a day. Recheck inr one week * Tia Mock RN - 01/23/2023 1:15 PM EDT patient had inr completed at [facility] patients inr is 1.8 (patients inr range is 2.5-3.5) patient is currently taking 1.25mg Mon and 2.5mg all other days patients last dose change was on 10/12/22 due to a high level of 5.9 (dose at that time was 4.5mg Wed and 2.5mg all other days) patient has had no changes in medication and no missed doses and no change in diet Advised patient that they would be contacted regarding medication dose and when to follow up after information is reviewed by provider. After provider review please contact the patient with information and schedule follow up appointment with coumadin clinic. please speak with spouse concerning dose, and ok to leave a detailed message if no answer FYI- patient has been scheduled for a 2 week follow up inr on 02/06/23 documented in this encounterWhite Hospital06-27-2023 Miscellaneous Notes* Telephone Encounter - Tia Mock RN - 01/23/2023 1:18 PM EDT patients orders for coumadin clinic inr's has at this time. new order has been pended for approval if possible so that patient can continue to get inr's completed thru the coumadin clinic. coumadin clinic nurse only needs called if order can not be approved. documented in this encounterWhite Hospital06-05-2023 History of Present illness Narrative* Kolby Kim MD - 01/01/2023 11:35 AM EDT Agree. * Kolby Kim MD - 01/01/2023 11:15 AM EDT patient had inr completed at [facility] patients inr is 3.5 (patients inr range is 2.5-3.5) patient is currently taking 1.25mg Mon and 2.5mg all other days patients last dose change 12/18/22 due to a high level of 3.6 patient has had no changes in medication and no missed doses and no change in diet FYI - patient took last of antibiotics today Advised patient to continue on the same dose(s) and that they would only be contacted regarding dosage and follow up instructions after review with provider, if a change is needed. Written instructions given and patient verbalized understanding. Presently scheduled in 1 weeks (01/09/23) for follow up INR since level is on the high end of normal documented in this encounterWhite Hospital06-05-2023 History of Present illness Narrative* Kolby Kim MD - 01/01/2023 11:11 AM EDT Patient presents with: Follow Up HPI: Patient presents today for office visit for 1 month follow up. Paxil increased at last OV to 30 mg daily. She feels it's helped her appetite some. Now has desire to eat. Still losing weight. No suicidal ideation. No side effects. Moods are improving. No new stomach pain. Discussed using boost or ensure daily. She and her do not want aggressive work up of her weight loss. Breathing is stable. is now doing her meds. Home health is coming twice a week. See previous ov: Pat asking to increase her anxiety medication. Taking the 1/2 tablet twice a day isn't getting her through most of the time. Was initially hesitant to increase paxil due to possibility of weight gain, however, we are bringing her in for weight recheck because of lack of appetite. Is somewhat down. Still work confusion issues. Has been hesitant to have her help with her meds. Discussed I think that is a good idea. We are also going to see about getting some help with her at home for her . Social service will contact them. No suicidal ideation. No new chest pain or shortness of breath. Mentions abd pain on and off for months in the lower abd. Was worked up for it in hospital including ct scan. Did offer but gi but they would like to hold given her other issues. No bowel or urine changes. No fever. Having pain management procedure ([facility]) and will need to be off coumadin for 5 days. Concerned aboutthis. Discussed that given her mechanical juwan she cannot come off of anticoagulation. Would need to discuss options with her care. MEDICATIONS: Current Outpatient Medications Medication Sig PARoxetine (PAXIL) 30 mg tablet Take 1 tablet by mouth once daily. nitroglycerin sublingual (NITROQUICK) 0.4 mg SL tablet DISSOLVE ONE TABLET UNDER THE TONGUE EVERY 5MINUTES NEEDED FOR CARDIAC/CHEST PAIN LORazepam (ATIVAN) 1 mg tablet Take 0.5 tablets by mouth twice daily for 90 days. metoprolol succinate ER (TOPROL XL) 50 mg 24 hr tablet Take 2 tablets by mouth once daily. amLODIPine (NORVASC) 2.5 mg tablet Take 1 tablet by mouth once daily. iv contrast (will be provided with radiology test) CT Chest W -Inject, intravenously, once for 1 dose.No IV access, insert saline lock prior to the beginning of sedation, infusion, injection of imaging exam. Discontinue saline lock post exam. If Pt. has a central line or IVAD, may access for administration according to line specific nursing protocol. Once exam is complete flush line and de-accessaccording to line specific nursing protocol in the CT contrast administration guidelines link. ergocalciferol 50,000 unit capsule (VITAMIN D2, DRISDOL) Take 1 capsule by mouth every other week. baclofen (LIORESAL) 10 mg tablet Take 1 tablet by mouth three times daily as needed (muscle spasms). montelukast (SINGULAIR) 10 mg tablet Take 1 tablet by mouth daily at bedtime. pregabalin (LYRICA) 25 mg capsule Take 1 capsule by mouth daily at bedtime for 30 days. BREO ELLIPTA 200-25 mcg/dose inhaler INHALE 1 PUFF BY MOUTH ONCE DAILY ferrous sulfate 325 mg (65 mg iron) tablet Take 1 tablet by mouth twice daily with meals. SPIRIVA RESPIMAT 2.5 mcg/actuation inhaler INHALE 2 SPRAYS BY MOUTH ONCE DAILY AT APPROXIMATELY THESAME TIME EACH DAY furosemide (LASIX) 40 mg tablet Take 1 tablet by mouth once daily. buPROPion XL (WELLBUTRIN XL) 150 mg 24 hr tablet Take 1 tablet by mouth once daily. warfarin (COUMADIN) 3 mg tablet 2.5 mg MW and 4.5 mg all other days or as directed (Patient taking differently: 2.5 mg or as directed) warfarin (COUMADIN) 2.5 mg tablet 2.5 mg MWF and 4.5 mg all other days or as directed (Patient taking differently: 2.5 mg daily or as directed) pantoprazole DR (PROTONIX) 40 mg tablet Take 1 tablet by mouth twice daily. potassium chloride ER (K-DUR, KLOR-CON) 20 mEq tablet Take 1 tablet by mouth once daily. albuterol (PROVENTIL) 2.5 mg /3 mL (0.083 %) nebulizer solution Use 3 mL via nebulizer every 6 hours as needed for wheezing/shortness of breath. DX: J45.40 Hx of moderate persistent Asthma warfarin (COUMADIN) 2.5 mg tablet 2.5 mg daily or as directed amiodarone (PACERONE) 200 mg tablet Take 100 mg by mouth once daily. albuterol HFA (PROAIR HFA) 90 mcg/actuation inhaler Inhale 2 Puffs as instructed every 4 hours as needed. budesonide-formoterol (SYMBICORT) 160-4.5 mcg/actuation inhaler Inhale 2 Puffs as instructed twice daily. acetaminophen (TYLENOL EXTRA STRENGTH) 500 mg tablet Take 1 tablet by mouth every 4 hours as neededfor Pain. RANGE FREQ? Nebulizer NEBULIZER FOR HOME USE and necessary supplies. DX: Hypoxemia, Pneumonia and Hemoptisis triamcinolone acetonide (NASACORT AQ) 55 mcg nasal inhaler Use 1 [place] in the nose once daily. pravastatin (PRAVACHOL) 80 mg tablet TAKE 1 TABLET BY MOUTH ONCE DAILY aspirin 81 mg chewable tablet Take 2 tablets by mouth once daily. ezetimibe(ZETIA 10 MG TAB) Take one(1) tablet daily. No current facility-administered medications for this visit. ALLERGIES: ALLERGIES Allergen Reactions Adhesive Rash Blistering at site of application. Dextromethorphan Other: See Comments, Mental Status Change Risperidone Other: See Comments Sulfa (Sulfonamide * Other: See Comments Renal dysfunction. Childhood reaction. Generalized swelling Celebrex [Celecoxib] Other: See Comments Migraine headache. Aricept [Donepezil] Myalgia muscle pain and difficulty walking Compazine [Prochlor* Other: See Comments low BP Crestor [Rosuvastat* GI Upset Gabapentin Intolerance Confusion, when coupled with norco Lipitor [Atorvastat* Myalgia Lisinopril Cough No Latex Allergy [O* Oxycodone Itching Penicillins Other: See Comments Heart palpitations. No rash or itch. Can take cephalosporins Prozac [Fluoxetine * Other: See Comments hallucinating Ultram [Tramadol Hc* Itching Codeine Itching PAST MEDICAL HISTORY Diagnosis Date Adjustment disorder with depressed mood Aortic valve disorder Dr. Mckay Carotid stenosis Compression deformity of vertebra Congestive heart failure (HCC) COPD (chronic obstructive pulmonary disease) ([facility]) 01/03/2013 Esophageal reflux Normal EGD 12/2012 H/O aortic valve replacement INR should be 2.5 to 3.5 High blood pressure Hyperlipidemia Impaired glucose tolerance Intrinsic asthma 06/[address] done per Dr. Mckay Migraine Myalgia and myositis, unspecified Other forms of migraine Parkinsonism (HCC) Thyroid nodule Unspecified essential hypertension PAST SURGICAL HISTORY Procedure Laterality Date ANTERIOR COLPORRAPHY RPR CYSTOCELE W/CYSTO 2001 w/ uterosacral suspension CARDIOVERSION [facility]- Spring 2019 CLOSURE SEMILUNAR VALVE AORTIC/PULM SUTURE/PATCH 2003 had aortic valve replacement w/ bovine valve COLONOSCOPY FLX DX W/COLLJ SPEC WHEN PFRMD 01/15/2013 Colonoscopy COLSC FLX W/RMVL OF TUMOR POLYP LESION SNARE TQ 05/07/2017 Colonoscopy - cecal inflammatory polyps. Repeat in 5 yrs DISPLACEMENT THERAPY PROETZ TYPE x3 ESOPHAGOGASTRODUODENOSCOPY TRANSORAL DIAGNOSTIC 01/15/2013 EGD ESOPHAGOGASTRODUODENOSCOPY TRANSORAL DIAGNOSTIC 05/07/2017 EGD FOOT RIGHT OP SURGERY 05/05/2009 HEMORRHOIDECTOMY XTRNL 2/> COLUMN/GROUP LAPS VAGINAL HYSTERECTOMY UTERUS 250 GM/< usvvs, enterocele repair,apr,lsc pvdr,cysto,spt LOW BACK DISK SURGERY 06/2011 OOPHORECTOMY PARTIAL/TOTAL UNI/BI PAST SURGICAL HISTORY OF 04/2012 Thyroid nmuigg-[id number]-juynosqm PAST SURGICAL HISTORY OF aug and september 2011 cataract removal PAST SURGICAL HISTORY OF 2013 aortic valve with On-X valve PERCUTANEOUS AORTIC VALVE REPLACEMENT 09/2013 POSTERIOR COLPORRHAPHY, REPAIR RECTOCELE 2001 SINUS SURGERY PROC UNLISTED [address] Styles ([place]), [address], 1 in [place] TONSILLECTOMY PRIMARY/SECONDARY <AGE 11 TOTAL ABDOMINAL HYSTERECT W/WO RMVL TUBE OVARY age 31 FAMILY HISTORY Problem Relation Age of Onset Heart Mother Heart Father Diabetes Brother Hypertension Brother Lipids Brother Lipids Daughter other (Depression) Daughter GI Son Lipids Son Diabetes Sister Lipids Sister Social History Tobacco Use Smoking status: Never Smokeless tobacco: Never Tobacco comments: Father smoked in childhood home. Spouse non-smoker. Vaping Use Vaping Use: Never used Substance Use Topics Alcohol use: No Drug use: No Reviewed current medications, allergies, past medical history, surgical history, family history andsocial history today. REVIEW OF SYSTEMS All other reviewed and negative other than HPI. VITALS: BP 118/58 Pulse 69 Ht 152.4 cm (5') Wt 52.2 kg (115 lb) SpO2 88% BMI 22.46 kg/m Last 4 Encounter Wt Readings: Date: Wt: 12/04/2022 53.1 kg (117 lb) 12/01/2022 54.4 kg (120 lb) 11/21/2022 55.8 kg (123 lb) 11/07/2022 58.5 kg (129 lb) PHYSICAL EXAMINATION: General appearance: Well appearing, alert, in no acute distress, well-hydrated, well nourished. Skin: Skin color, texture, turgor normal, no suspicious rashes or lesions Head: Normocephalic, no masses, lesions, tenderness or abnormalities Lungs: decreased breathsounds Heart: click. RRR Abdomen: Normal abdominal exam, Abdomen soft, non-tender. Bowel sounds normal. No masses, organomegaly Extremities: No deformities, edema, skin discoloration, clubbing or cyanosis. Good capillary refill. ASSESSMENT/PLAN: 1. Hyperlipidemia LDL goal <100 - ICD9: 272.4, ICD10: E78.5 (primary diagnosis) - Controlled 2. Anemia, unspecified type - ICD9: 285.9, ICD10: D64.9 - refill meds. - FERROUS SULFATE 325 MG (65 MG IRON) TABLET 3. Iron deficiency - ICD9: 280.9, ICD10: E61.1 - refill meds. - FERROUS SULFATE 325 MG (65 MG IRON) TABLET 4. Dyspnea and respiratory abnormalities - ICD9: 786.09, ICD10: R06.00, R06.89 - FUROSEMIDE 40 MG TABLET 5. Weight loss - ICD9: 783.21, ICD10: R63.4 - follow. Add daily ensure. 6. Anxiety with depression - ICD9: 300.4, ICD10: F41.8 Continue meds. Kolby Kim MD RTO in eight weeks or prn documented in this encounterWhite Hospital05-31-2023 Miscellaneous Notes* Telephone Encounter - Earlene Perez LPN - 12/27/2022 12:47 PM EDT Notified Guillermina. Scheduled with [facility] on Sunday before coming up to see Dr Kim on Sunday. * Telephone Encounter - Kolby Kim MD - 12/27/2022 12:28 PM EDT Ok to do * Telephone Encounter - Earlene Perez LPN - 12/27/2022 11:18 AM EDT Just taking first dose of meds today. Has another appointment on Sunday. Asking if could 1/2 dose one day over the weekend and check on Sunday before being seen in office? * Telephone Encounter - Kolby Kim MD - 12/27/2022 11:02 AM EDT Stay on current dose. Recheck or Sunday since on meds. * Telephone Encounter - Earlene Perez LPN - 12/27/2022 10:21 AM EDT Last INR: INR 2.7 12/26/2022 Current dose of coumadin is: 1.25mg on Sunday and 2.5mg all other days. Last date of dose change: 12/18/22. Previous INR (date and result): 3.6 12/18/22 Additional Clinical Information or narrative: yes: on Pred and Levaquin per ER visit. Report is scanned into chart now for review. * Telephone Encounter - Gretchen Gilliland LPN - 12/27/2022 9:51 AM EDT Spouse calling in to see how much coumadin pt should be taking because of the following: Pt was to [facility] ER yesterday 12-26-22. Pt will be starting on 2 ATB and spouse is concerned pt's INR is going to be affected. Please advise spouse back. (declined to schedule ER FU because he stated pt already has an apt scheduled for Sunday01/01/23 for a 4 week FU this is a 20 minute apt.) Gretchen Gilliland LPN documented in this encounterWhite Hospital05-30-2023 Miscellaneous Notes* Telephone Encounter - Gabriela Wood - 12/26/2022 2:09 PM EDT Patients informed and verbalized understanding. Gabriela Wood * Telephone Encounter - Kolby Kim MD - 12/26/2022 2:04 PM EDT Given her hx, needs to go to er * Telephone Encounter - Gretchen Gilliland LPN - 12/26/2022 1:49 PM EDT Pt calling in and reporting the constant cough she has had for 4 to 5 years has gotten worse. Having trouble getting her O2 level up. 88% now and keeps dropping as we were talking down to 85%. Pt is on 3 Liters of oxygen pulsating. Pt should be on 3 liters continuous but her oxygen she has at home was giving off a smell and spouse put her on the portable O2 and it will not last long if doing continuous. They are also going to give [facility] a call. Pt was in for an INR check and she walked instead of getting a wheel chair. Pt is SOB . Denies no chest pain, fever. Instructed pt to ER but they wanted to have your opinion 1st before going. They are waiting on a call. Ecommerce Analyst RN available to triage call. Please advise pt. Gretchen Gilliland LPN documented in this encounterWhite Hospital05-15-2023 Miscellaneous Notes* Telephone Encounter - Livia Clayton MA - 12/11/2022 1:59 PM EDT Spoke with patient's and gave instructions. He repeated and voiced understanding. Livia Clayton MA * Telephone Encounter - Kenneth Ng MD - 12/11/2022 1:17 PM EDT Advise patient to take an extra 2.5 mg of coumadin today with her 5 mg dose. Starting tomorrow go back to 2.5 mg every day except 5 mg on Sunday. Recheck INR in a week. * Telephone Encounter - Keily Mcpherson Ma - 12/11/2022 12:49 PM EDT Last INR: INR 1.8 12/11/2022 Current dose of coumadin is: 5 mg on Sun, 2.5 mg all other days. Last date of dose change: 12/04/22. Previous INR (date and result): 2.3 12/04/22 Additional Clinical Information or narrative: no documented in this encounterWhite Hospital05-11-2023 History of Present illness Narrative* Sunny Estrella RN - 12/07/2022 10:10 AM EDT CDM Telephonic Outreach Provider Action/FYI Reached Guillermina-Spouse Reports [facility] is coming in 2x/wk to help support care. They were with patient at time of call Reports she gained a one pound. Will continue to monitor weight. Patient appetite has been poor. Appreciative of follow up Contacted for: Routine Telephonic Outreach Contact made with patient: Yes Patient identified by name and date of . Discussed care with spouse Are you experiencing any new or worsening symptoms you need to talk about today? No Disease Specific Do you check your blood pressure at home? No Do you have new or worsening shortness of breath with activity? No Do you feel like you are dehydrated for any reason, including not being able to eat or drink normally, or having less urine/much darker urine than normal for you? No Do you check your daily weight at home? No and Do you have new or worsening cough? No Do you have new or worsening wheezing? No Do you need to use your rescue (Albuterol) inhaler or nebulizer more often than normal? No Based on meat pumper, the following disposition is advised: No symptoms or symptoms present, not severe. Routed to: No Action Needed ROMELIA Education Provided this Outreach: No Sunny Estrella RN December 07, 2022 3:43 PM documented in this encounterWhite Hospital05-10-2023 Miscellaneous Notes* Telephone Encounter - ZAKI Seymour - 12/06/2022 9:10 AM EDT Sameer spoke with patient spouse and he reports that [facility] is coming out today to see about their services. Sameer provided spouse with [facility] names and numbers. Sameer also provided spouse with name and number to reach back out if further home care agency numbers are needed. * Telephone Encounter - ZAKI Seymour - 12/04/2022 3:17 PM EDT Sameer called patient spouse to discuss [facility] and [facility]. No answer,Sameer will try call again later. documented in this encounterWhite Hospital05-08-2023 Miscellaneous Notes* Telephone Encounter - Bobby Srinivasan RN - 12/04/2022 2:38 PM EDT Pts called and is notified of providers results and instructions. He voices understanding. Bobby Srinivasan RN * Telephone Encounter - Kloby Kim MD - 12/04/2022 2:19 PM EDT Change to 5 mg Mondays, 2.5 a day rest of the week. Recheck one week * Telephone Encounter - Keily Mcpherson Ma - 12/04/2022 1:56 PM EDT Last INR: INR 2.3 12/04/2022 Current dose of coumadin is: 2.5 mg daily. Last date of dose change: 11/29/22. Previous INR (date and result): 2.2 Additional Clinical Information or narrative: no documented in this encounterWhite Hospital05-05-2023 Instructions* Patient Instructions* Shawn Santana MD - 12/01/2022 11:55 AM EDT Consider doing the rivastigmine (Exelon) patch, 4.6 mg once a day. It has a better but not great hart on [employer] with [employer] being the cheapest. Let me know if you would like a prescription sent in for it. documented in this encounterWhite Hospital05-05-2023 History of Present illness Narrative* Shawn Santana MD - 12/01/2022 11:27 AM EDT FOLLOW UP NOTE Subjective Elza Chu is a 76 year old female who presents for follow up. 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 Her examination demonstrates mild parkinsonism and signs of right lumbar radiculopathy. Agree withdiagnosis of Lewy Body Dementia. Explained patients with this can have parkinsonism but that treatment may worsen hallucinations. Her parkinsonism is mild enough that I wouldn't recommend treating itat this time. Encouraged physical activity. Rivastigmine patch may help with hallucinations as wellas for cognition, they will watch closely with previous side effects to donepezil. The RLE symptoms which are contributing to her gait likely due to lumbar radiculopathy. She had injections for this in the past. Would not suggest surgical evaluation, but could do physical therapy or see spine medicine specialist for injections / other treatments. HPI Current Issues 1. LBD - Hallucinations have been shorter, lasting hours instead of all day - Still with the persistent delusion that someone is living in the attic which is troubling to her - Has been having capgras delusion of her occasionally, sometimes asks him if he is her father. He will go outside the house, come in and then she will think he is a different Guillermina, wonders ifhe belongs to the Guillermina club. - Hoping to have someone come to the house 2-3 times a week to help with things like meals or socialize with her - Was never able to get the rivastigmine patch due to cost 2. Pain - Still with difficulty with low back and leg pain - Follows with Dr. Virk - ERVIN helps a lot, planning towards RFA Current Outpatient Medications Medication Sig Dispense Refill nitroglycerin sublingual (NITROQUICK) 0.4 mg SL tablet DISSOLVE ONE TABLET UNDER THE TONGUE EVERY 5MINUTES NEEDED FOR CARDIAC/CHEST PAIN LORazepam (ATIVAN) 1 mg tablet Take 0.5 tablets by mouth twice daily for 90 days. 90 tablet 0 metoprolol succinate ER (TOPROL XL) 50 mg 24 hr tablet Take 2 tablets by mouth once daily. 30 tablet 2 amLODIPine (NORVASC) 2.5 mg tablet Take 1 tablet by mouth once daily. ergocalciferol 50,000 unit capsule (VITAMIN D2, DRISDOL) Take 1 capsule by mouth every other week. baclofen (LIORESAL) 10 mg tablet Take 1 tablet by mouth three times daily as needed (muscle spasms). 30 tablet 0 montelukast (SINGULAIR) 10 mg tablet Take 1 tablet by mouth daily at bedtime. 90 tablet 3 diclofenac (VOLTAREN) 1 % topical gel Apply 4 g to affected area four times daily. 480 g 2 pregabalin (LYRICA) 25 mg capsule Take 1 capsule by mouth daily at bedtime for 30 days. 30 capsule 0 BREO ELLIPTA 200-25 mcg/dose inhaler INHALE 1 PUFF BY MOUTH ONCE DAILY PARoxetine (PAXIL) 20 mg tablet Take 1 tablet by mouth once daily. 90 tablet 3 ferrous sulfate 325 mg (65 mg iron) tablet Take 1 tablet by mouth twice daily with meals. 60 tablet2 SPIRIVA RESPIMAT 2.5 mcg/actuation inhaler INHALE 2 SPRAYS BY MOUTH ONCE DAILY AT APPROXIMATELY THESAME TIME EACH DAY furosemide (LASIX) 40 mg tablet Take 1 tablet by mouth once daily. 90 tablet 1 buPROPion XL (WELLBUTRIN XL) 150 mg 24 hr tablet Take 1 tablet by mouth once daily. 90 tablet 3 warfarin (COUMADIN) 3 mg tablet 2.5 mg MW and 4.5 mg all other days or as directed (Patient taking differently: 2.5 mg or as directed) 90 tablet 3 warfarin (COUMADIN) 2.5 mg tablet 2.5 mg MWF and 4.5 mg all other days or as directed (Patient taking differently: 2.5 mg daily or as directed) [address] (PROTONIX) 40 mg tablet Take 1 tablet by mouth twice daily. 180 tablet 3 potassium chloride ER (K-DUR, KLOR-CON) 20 mEq tablet Take 1 tablet by mouth once daily. 90 tablet 3 albuterol (PROVENTIL) 2.5 mg /3 mL (0.083 %) nebulizer solution Use 3 mL via nebulizer every 6 hours as needed for wheezing/shortness of breath. DX: J45.40 Hx of moderate persistent Asthma 360 mL 3 warfarin (COUMADIN) 2.5 mg tablet 2.5 mg daily or as directed amiodarone (PACERONE) 200 mg tablet Take 100 mg by mouth once daily. albuterol HFA (PROAIR HFA) 90 mcg/actuation inhaler Inhale 2 Puffs as instructed every 4 hours as needed. 3 Inhaler 0 budesonide-formoterol (SYMBICORT) 160-4.5 mcg/actuation inhaler Inhale 2 Puffs as instructed twice daily. acetaminophen (TYLENOL EXTRA STRENGTH) 500 mg tablet Take 1 tablet by mouth every 4 hours as neededfor Pain. RANGE FREQ? 0 Nebulizer NEBULIZER FOR HOME USE and necessary supplies. DX: Hypoxemia, Pneumonia and Hemoptisis 1 Each 0 triamcinolone acetonide (NASACORT AQ) 55 mcg nasal inhaler Use 1 [place] in the nose once daily. pravastatin (PRAVACHOL) 80 mg tablet TAKE 1 TABLET BY MOUTH ONCE DAILY 90 tablet 3 aspirin 81 mg chewable tablet Take 2 tablets by mouth once daily. 0 ezetimibe(ZETIA 10 MG TAB) Take one(1) tablet daily. 0 iv contrast (will be provided with radiology test) CT Chest W -Inject, intravenously, once for 1 dose.No IV access, insert saline lock prior to the beginning of sedation, infusion, injection of imaging exam. Discontinue saline lock post exam. If Pt. has a central line or IVAD, may access for administration according to line specific nursing protocol. Once exam is complete flush line and de-accessaccording to line specific nursing protocol in the CT contrast administration guidelines link. 1 Each 0 Current Facility-Administered Medications Medication Dose Route Frequency Provider Last Rate Last Admin bupivacaine 7.5 mg injection (SENSORCAINE) 3 mL OTHER As Directed Patricia Charles MD 7.5 mg at 08/27/20 1131 REVIEW OF SYSTEMS Her ROS was positive for that mentioned in the HPI. Otherwise a 10-point ROS was completed and was negative. Objective OBJECTIVE 12/01/22 1123 BP: 129/59 BP Site: Right Arm BP Position: Sitting BP Cuff Size: Small Adult Pulse: 72 SpO2: 90% Weight: 54.4 kg (120 lb) Height: 152.4 cm (5') General: General Appearance: Well appearing, alert, in no acute distress, well-hydrated, well nourished. Head: Normocephalic Neck: Supple Heart: RRR Neurologic Exam: Mental Status: She is alert and oriented. Attention is impaired. Recall of her history is mildly impaired. Affect is appropriate. Cranial Nerves: Extraocular movements show full and smooth pursuits. No nystagmus. Visual godwin are full to confrontation. Facial sensation is intact. Facial activation is symmetric. Hearing is intact to conversation. There is mild hypomimia. There is mild hypophonia. There is no dysarthria. Tongue is midline. Palate elevates symmetrically. Shoulder shrug is normal. Motor: Muscle bulk is normal. Mild RLE weakness. Mild R>LUE bradykinesia. Minimal rigidity. Subtle right hand tremor. Coordination: Finger to nose is smooth without ataxia. Gait/station: Right foot externally rotated. Mildly stooped posture. Decreased stride length and serena. DATA REVIEW Actual films/image/tracing reviewed and summarized as follows: n/a Old records reviewed and summarized as follows: CT L-spine 09/19/22 multilevel degenerative changes comparable to prior exam CT L-spine 09/18/21 severe degenerative changes / compression deformities. Reviewed referral records from Dr. Sanchez and prior neuro records from Dr. Monreal Assessment/Plan ASSESSMENT & PLAN: Elza Chu is a 76 year old right-handed female with a history of Lewy Body Dementia, mechanical AVR on coumadin, and depression amongst other conditions who presents for follow up of parkinsonism in LBD. Her examination demonstrates mild parkinsonism and signs of right lumbar radiculopathy. 1. LBD - Explained acetylcholinesterase inhibitor first line treatment for LBD, couldn't tolerate donepezil, rivastigmine patch only good option as pill would likely cause side effects. [facility] has reasonable hart for it, gave them info on this - Consider quetiapine in the future if hallucinations bothersome enough and can't get rivastigmine - Encouraged activity Follow-up: 6 months Risks & Side Effects of Newly Prescribed Medication, Discussed with Patient: YES Shawn Santana MD [facility] documented in this encounterWhite Hospital05-04-2023 Miscellaneous Notes* Telephone Encounter - Bobby Srinivasan RN - 11/30/2022 8:51 AM EDT Pts called and is notified of providers results and instructions. He voices understanding. Bobby Srinivasan RN * Telephone Encounter - Kolby Kim MD - 11/30/2022 8:38 AM EDT Is back down resume 2.5 mg a day. Recheck on Sunday * Telephone Encounter - Alycia Gill RN - 11/29/2022 7:17 PM EDT Patient calling for INR result done today. Advised it is still in process. She has held her Coumadin x 2 days and is waiting for new Coumadin/INR recheck instructions. Alycia Gill, RN documented in this encounterWhite Hospital05-04-2023 Miscellaneous Notes* Telephone Encounter - Lamin Anderson - 11/30/2022 8:51 AM EDT Due to provider vacation the 01/29/2023 appointment needs to be rescheduled. Called patient and left detailed message regarding this. Left number for them to call back when ready to reschedule. documented in this encounterWhite Hospital05-01-2023 Miscellaneous Notes* Telephone Encounter - Gabriela Wood - 11/27/2022 3:18 PM EDT Patient informed and verbalized understanding. Gabriela Wood * Telephone Encounter - Kolby Kim MD - 11/27/2022 2:57 PM EDT Hold x 2 days. Recheck Wed * Telephone Encounter - Earlene Perez LPN - 11/27/2022 2:52 PM EDT Last INR: INR 4.6 11/27/2022 Current dose of coumadin is: 5mg on Th and 2.5mg all other days. Last date of dose change: 11/20/22. Previous INR (date and result): 4.1 11/20/22 Additional Clinical Information or narrative: no documented in this encounterWhite Hospital04-25-2023 NoteHNO ID: [id number] Author: Treva Chirinos APRN.SODA TESTER Service: ? Author Type: Nurse Practitioner Type: Progress Notes Filed: 11/21/2022 11:41 AM Note Text: AMBULATORY TELEPHONE VISIT Elza Chu has consented to this telephone encounter. Persons Present: patient Chief Complaint/Reason: Lumbar Medial Branch Blocks under fluoroscopic guidance Levels Treated: Bilateral L4/5 and L5/S1 Facet #2 HPI: Patient reports 80 % relief from procedure with pain score of 1-0/10 for 8 hours length of time. Patient reports improved quality of life and increase in ability to perform ADL's. She is pleased with her pain relief and is looking forward to the RFA. Pain level today: 1-2 Ht 152.4 cm (5') Wt 55.8 kg (123 lb) BMI 24.02 kg/m? REVIEW OF SYSTEMS GENERAL: No weight loss, malaise or fevers HEENT: Negative for frequent or significant headaches, No changes in hearing or vision, no nose bleeds or other nasal problems NECK: Negative for lumps, goiter, pain and significant neck swelling RESPIRATORY: Negative for cough, hemoptysis, wheezing, COPD, dyspnea or shortness of breath CARDIOVASCULAR: Negative for chest pain, leg swelling, hypertension, CHF or palpitations GI: No nausea, vomiting, or diarrhea : No history of dysuria, frequency or incontinence MUSCULOSKELETAL: Negative for joint pain or swelling, back pain or muscle pain SKIN: Negative for lesions, rash, and itching PSYCH: Negative for sleep disturbance, mood disorder and recent psychosocial stressors HEMATOLOGY/LYMPHOLOGY: Negative for prolonged bleeding, bruising easily or swollen nodes ENDOCRINE: Negative for cold or heat intolerance, polyuria, polydipsia and goiter NEURO: No history of headaches, syncope, paralysis, seizures or tremors Data Reviewed: Most recent procedure Assessment: (M47.816) Lumbar spondylosis (primary encounter diagnosis) Plan: Bilateral L4/5 and L5/S1 RFA under fluro - precert Total Time Spent: 16 minutes Patient verbalizes understanding of home going instructions and is in agreement with the discharge plan. Patient questions were answered to their satisfaction. Treva Chirinos APRN.SODA TESTER MRI Spine Report MRI LUMBAR SPINE WO CONTRAST Collected: 03/28/2016 12:34 PM (Final result) Narrative: * * *Final Report* * * DATE OF EXAM: Mar 28 2016 12:34PM [facility] 0560 - MRI LUMBAR SPINE WO CONTRAST / PROCEDURE REASON: multiple diagnoses * * * * Physician Interpretation * * * * RESULT: HISTORY: Low back pain with radiculopathy. COMPARISON: There are no prior exams for comparison on the digital archive at this time for comparison. EXAMINATION: Routine lumbosacral spine protocol without gadolinium. RESULTS: Counting reference: Lumbosacral junction. For the purposes of this report, L5S1 is considered the last lumbar type disc space. Paraspinal soft tissues: Paraspinal soft tissues are unremarkable. Alignment: Moderate curvature of the thoracic-lumbar spine concave to the right. Minimal retrolisthesis of L1 on L2. Alignment is otherwise normal. Bone marrow signal/fracture: No evidence of pathologic marrow infiltration. Acute compression fracture deformity of the L1 vertebral body with approximately 20% reduction in height and moderate inferior endplate compression. There is STIR hyperintensity within the vertebral body and corresponding low T1 signal intensity along the inferior endplate. Remaining lumbar vertebral bodies are normal in height. Conus: The conus is within normal limits of signal intensity and morphology. The conus terminates normally at L1. Lower thoracic spine: Visualized lower thoracic canal and foramina are patent. T12-L1: There is no significant central canal or neural foraminal stenosis. L1-L2: Bulging disk, facet, and ligamentous hypertrophy results in mild central canal narrowing and minimal neural foraminal narrowing. L2-L3: Bulging disk, facet, and ligamentous hypertrophy results in mild central canal narrowing and severe right neural foraminal narrowing. L3-L4: Bulging disk, facet, and ligamentous hypertrophy results in mild central canal narrowing and moderate right and severe left neural foraminal narrowing. L4-L5: Bulging disk, facet arthropathy, and ligamentous hypertrophy result in minimal effacement of anterior subarachnoid space and moderate right and severe left foraminal narrowing. L5-S1: Bulging disk, facet arthropathy, and ligamentous hypertrophy result in contact traversing bilateral S1 nerve roots and severe foraminal stenosis. Sacrum and iliac wings: Visible sacrum and iliac wings are normal. Presacral soft tissues within normal limits. Impression: IMPRESSION: Acute compression fracture deformity L1 vertebral body. Multilevel degenerative changes. Ventilating Expert: PEYTON Transcribe Date/Time: Mar 28 2016 1:02P Dictated by : ELENITA REYES MD This examination was interpreted and the report reviewed and elec (more content not included)...[facility]04-25-2023 Instructions* Patient Instructions* Treva Chirinos APRN.CNP - 11/21/2022 11:38 AM EDT Ice and heat as tolerated Activity as tolerated documented in this encounterWhite Hospital04-25-2023 History of Present illness Narrative* Treva Chirinos APRN.CNP - 11/21/2022 11:30 AM EDT AMBULATORY TELEPHONE VISIT Elza Chu has consented to this telephone encounter. Persons Present: patient Chief Complaint/Reason: Lumbar Medial Branch Blocks under fluoroscopic guidance Levels Treated: Bilateral L4/5 and L5/S1 Facet #2 HPI: Patient reports 80 % relief from procedure with pain score of 1-0/10 for 8 hours length of time. Patient reports improved quality of life and increase in ability to perform ADL's. She is pleasedwith her pain relief and is looking forward to the RFA. Pain level today: 1-2/10 Ht 152.4 cm (5') Wt 55.8 kg (123 lb) BMI 24.02 kg/m REVIEW OF SYSTEMS GENERAL: No weight loss, malaise or fevers HEENT: Negative for frequent or significant headaches, No changes in hearing or vision, no nose bleeds or other nasal problems NECK: Negative for lumps, goiter, pain and significant neck swelling RESPIRATORY: Negative for cough, hemoptysis, wheezing, COPD, dyspnea or shortness of breath CARDIOVASCULAR: Negative for chest pain, leg swelling, hypertension, CHF or palpitations GI: No nausea, vomiting, or diarrhea : No history of dysuria, frequency or incontinence MUSCULOSKELETAL: Negative for joint pain or swelling, back pain or muscle pain SKIN: Negative for lesions, rash, and itching PSYCH: Negative for sleep disturbance, mood disorder and recent psychosocial stressors HEMATOLOGY/LYMPHOLOGY: Negative for prolonged bleeding, bruising easily or swollen nodes ENDOCRINE: Negative for cold or heat intolerance, polyuria, polydipsia and goiter NEURO: No history of headaches, syncope, paralysis, seizures or tremors Data Reviewed: Most recent procedure Assessment: (M47.473) Lumbar spondylosis (primary encounter diagnosis) Plan: Bilateral L4/5 and L5/S1 RFA under fluro - precert Total Time Spent: 16 minutes Patient verbalizes understanding of home going instructions and is in agreement with the discharge plan. Patient questions were answered to their satisfaction. Treva Chirinos APRN.SODA TESTER MRI Spine Report MRI LUMBAR SPINE WO CONTRAST Collected: 03/28/2016 12:34 PM (Final result) Narrative: * * *Final Report* * * DATE OF EXAM: Mar 28 2016 12:34PM [facility] 0560 - MRI LUMBAR SPINE WO CONTRAST / PROCEDURE REASON: multiple diagnoses * * * * Physician Interpretation * * * * RESULT: HISTORY: Low back pain with radiculopathy. COMPARISON: There are no prior exams for comparison on the digital archive at this time for comparison. EXAMINATION: Routine lumbosacral spine protocol without gadolinium. RESULTS: Counting reference: Lumbosacral junction. For the purposes of this report, L5S1 is considered the last lumbar type disc space. Paraspinal soft tissues: Paraspinal soft tissues are unremarkable. Alignment: Moderate curvature of the thoracic-lumbar spine concave to the right. Minimal retrolisthesis of L1 on L2. Alignment is otherwise normal. Bone marrow signal/fracture: No evidence of pathologic marrow infiltration. Acute compression fracture deformity of the L1 vertebral body with approximately 20% reduction in height and moderate inferior endplate compression. There is STIR hyperintensity within the vertebral body and corresponding low T1 signal intensity along the inferior endplate. Remaining lumbar vertebral bodies are normal in height. Conus: The conus is within normal limits of signal intensity and morphology. The conus terminates normally at L1. Lower thoracic spine: Visualized lower thoracic canal and foramina are patent. T12-L1: There is no significant central canal or neural foraminal stenosis. L1-L2: Bulging disk, facet, and ligamentous hypertrophy results in mild central canal narrowing and minimal neural foraminal narrowing. L2-L3: Bulging disk, facet, and ligamentous hypertrophy results in mild central canal narrowing and severe right neural foraminal narrowing. L3-L4: Bulging disk, facet, and ligamentous hypertrophy results in mild central canal narrowing and moderate right and severe left neural foraminal narrowing. L4-L5: Bulging disk, facet arthropathy, and ligamentous hypertrophy result in minimal effacement of anterior subarachnoid space and moderate right and severe left foraminal narrowing. L5-S1: Bulging disk, facet arthropathy, and ligamentous hypertrophy result in contact traversing bilateral S1 nerve roots and severe foraminal stenosis. Sacrum and iliac wings: Visible sacrum and iliac wings are normal. Presacral soft tissues within normal limits. Impression: IMPRESSION: Acute compression fracture deformity L1 vertebral body. Multilevel degenerative changes. Ventilating Expert: PSCB Transcribe Date/Time: Mar 28 2016 1:02P Dictated by : ELENITA REYES MD This examination was interpreted and the report reviewed and electronically signed by: ELENITA REYES MD on Mar 28 2016 1:06PM EST PDMP website checked and validated. All prescriptions have been APPROPRIATELY filled. No suspiciousactivity was identified. 11/19/2022 by Treva Chirinos APRN.SODA TESTER documented in this encounterWhite Hospital04-24-2023 Miscellaneous Notes* Telephone Encounter - Monique Rose RN - 11/20/2022 5:23 PM EDT Contacted pt's phone number-Patient and patient's spouse both on phone and given instructions below. Monique Rose RN * Telephone Encounter - Kolby Kim MD - 11/20/2022 5:18 PM EDT Hold x 1 day, then 2.5 a day except 5 mg on Th. Recheck one week * Telephone Encounter - Keily Mcpherson Ma - 11/20/2022 4:55 PM EDT Last INR: INR 4.1 11/20/2022 Current dose of coumadin is: 5 mg T, TH and 2.5 mg all other days. Last date of dose change: 11/13/22. Previous INR (date and result): 1.7 Additional Clinical Information or narrative: no documented in this encounterWhite Hospital04-21-2023 Miscellaneous Notes* Telephone Encounter - Keily Mcpherson Ma - 11/17/2022 11:45 AM EDT DELVIN 11/06/22 NOV 12/04/22 * Telephone Encounter - Mandie Simpson - 11/17/2022 10:33 AM EDT Patient has been identified by name and date of : Yes Requested Prescriptions Pending Prescriptions Disp Refills LORazepam (ATIVAN) 1 mg tablet 90 tablet 0 Sig: Take 0.5 tablets by mouth twice daily for 90 days. RX INSTRUCTIONS: Patient aware RX will be sent to pharmacy. No need to notify patient. Mandie Simpson documented in this encounterWhite Hospital04-20-2023 Miscellaneous Notes* Telephone Encounter - Tiki Reyna LPN - 11/16/2022 9:56 AM EDT Attempted to contact patient to follow up after procedure. Left a brief message asking patient to return call if they have any questions or concerns. Tiki Reyna LPN documented in this encounterWhite Hospital04-18-2023 NoteHNO ID: [id number] Author: Antonia Desir MA Service: ? Author Type: Robotics Mechanic Type: Progress Notes Filed: 11/14/2022 3:20 PM Note Text: Review of Systems Constitutional: Positive for chills. Negative for activity change, appetite change, fever and unexpected weight change. Genitourinary: Negative for difficulty urinating. Musculoskeletal: Positive for back pain. Negative for arthralgias, gait problem, joint swelling, myalgias, neck pain and neck stiffness. Neurological: Positive for weakness. Negative for numbness and headaches. Psychiatric/Behavioral: Negative for dysphoric mood, sleep disturbance and suicidal ideas. The patient is nervous/anxious.[facility] 11-14-2022 NoteHNO ID: [id number] Author: Gilberto Virk MD Service: ? Author Type: Physician Type: Progress Notes Filed: 11/14/2022 3:20 PM Note Text: [facility] Date: 11/14/2022 Patient name: Elza Chu Physician performing procedure: Gilberto Virk MD, PhD Procedure: Lumbar Medial Branch Blocks under fluoroscopic guidance Levels Treated: Bilateral L4/5 and L5/S1 Facet Joint Nerves, aka Medial Branch(es) Approach: Bilateral Oblique Injectate: A total of 3cc of 0.5% Bupivacaine (0.5 ml per site) Improvement after today's procedure: as per nursing report Diagnosis: (M47.816) Lumbar spondylosis (primary encounter diagnosis) (M47.816) Facet arthropathy, lumbar Comments: None HPI: Elza Chu is an 76 year old FEMALE who presents today for elective, diagnostic medial branch blocks. Elza Chu is a 76 year old year-old female with Atrial fibrillation, s/p AVR x2 on Coumadin (INR goal 2.5-3.5), compression fracture (T11, T12, L1 and L3 compression fracture), HL, HTN, asthma, migraines, 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 Patients history, physical exam and imaging are concerning for multifactorial pain including components of: lumbar neuroforaminal stenosis (on imaging, with multilevel moderate to severe NF stenosis), lumbar facet arthropathy (on imaging, with multilevel facet arthropathy seen on CT L-spine) iso of known multiple compression fractures at T11, T12, L1 and and L3 and significant thoracolumbar scoliosis. She further has c/f lumbar spinal stenosis (CT L-spine notable for L2-3 and L4-5 severe central canal stenosis, as well as L1-2 moderate, L3-4 moderate and L5-S1 central canal stenosis Patient reports largely lower lumbar spine pain over the lower lumbar facets as well the lower lumbar spine, consistent with lumbar facet arthropathy, lumbar spinal stenosis (up to severe as noted above on CT L-spine). However concern remains for pain over the multiple compression fractures (severe at L1, also at T11, T12, L1 and L3). Of note, pt has severe central canal stenosis, however patient deferred caudal LARISSA despite cardiac clearance and allowing her to bridge with Lovenox. If patient does not have benefit from L4/5 and L5/S1 MBB's, can consider L2/3 and L3/4 MBB's around the L3 compression site. Patient otherwise denies fevers, chills, weakness, saddle anesthesia, bowel or bladder incontinence or recent antibiotic or anticoagulant use. Review of Systems: Pertinent Positives: MSK: pain in the region being treated Neuro: No weakness or numbness in the region being treated Skin: Negative (No itching) Eyes: Negative (No blurred or double vision) Respiratory: Negative (No Cough, [id number], Dyspnea on exertion, wheezing) Cardiovascular: Negative (No Chest Pain, Tightness, Pressure, Palpitations) Gastrointestinal: Negative (No Abdominal pain, Nausea, Vomiting, Constipation, Diarrhea) Genitourinary: Negative (No dysuria) Hematologic: Negative (No bleeding, bruising) OB: is Denied or Not Applicable Endocrine: Negative (No hot/cold intolerance) Psychiatric: Negative (No depression, anxiety or suicidal ideation) ALLERGIES Allergen Reactions Adhesive Rash Blistering at site of application. Dextromethorphan Other: See Comments, Mental Status Change Risperidone Other: See Comments Sulfa (Sulfonamide * Other: See Comments Renal dysfunction. Childhood reaction. Generalized swelling Celebrex [Celecoxib] Other: See Comments Migraine headache. Aricept [Donepezil] Myalgia muscle pain and difficulty walking Compazine [Prochlor* Other: See Comments low BP Crestor [Rosuvastat* GI Upset Gabapentin Intolerance Confusion, when coupled with norco Lipitor [Atorvastat* Myalgia Lisinopril Cough No Latex Allergy [O* Oxycodone Itching Penicillins Other: See Comments Heart palpitations. No rash or itch. Can take cephalosporins Prozac [Fluoxetine * Other: See Comments hallucinating Ultram [Tramadol Hc* Itching Codeine Itching Current Outpatient Medications on File Prior to Visit Medication Sig iv contrast (will be provided with radiology test) CT Chest W -Inject, intravenously, once for 1 dose.No IV access, insert saline lock prior to the beginning of sedation, infusion, injection of imaging exam. Discontinue saline lock post exam. If Pt. has a central line or IVAD, may access for administration according to line specific nursing protocol. Once exam is complete flush line and de-access according to line specific nursing protocol in the CT contrast administration guidelines link. ergocalciferol 50,000 unit capsule (VITAMIN D2, DRISDOL) Take 1 capsule by mouth every o (more content not included)...[facility] 11-10-2022 Miscellaneous Notes* Telephone Encounter - MAUDE Myers - 11/10/2022 3:[address] Virk please review patient WBC to see if she can have her injection on 11/14. Chloe Patrick [place] to Dr. Virk, Kait Isbell PA-C, [facility] P: [id number] / F: [phone] / * Telephone Encounter - Treva Chirinos APRN.CNP - 11/10/2022 3:08 PM EDT This is up to the physician performing the injection to set the parameters. Please make sure physician reviews prior to injection Treva Chirinos APRN.CNP * Telephone Encounter - MAUDE Myers - 11/10/2022 2:46 PM EDT Per your notes on 11/07/22 patient needed to call and give results for WBC. Patient stated on 11/06it was 14.4 and on 11/08 it was 11. Patient would like to know if she can still have her injection.Please advise Chloe Patrick Mud Mixer Helper to Dr. Virk, Dr. Loomis, Kait Modi PA-C, [facility] P: [id number] / F: [phone] / [email or web address] documented in this encounterWhite Hospital04-11-2023 Miscellaneous Notes* Telephone Encounter - Gabriela Wood - 11/07/2022 9:14 AM EDT Spoke with patient and relayed results. She verbalized understanding to recheck cbc in one month. Gabriela Wood * Telephone Encounter - Kolby Kim MD - 11/07/2022 8:00 AM EDT Labs are ok other than white count is up. Recheck cbc in one month documented in this encounterWhite Hospital04-10-2023 Miscellaneous Notes* Telephone Encounter - Gabriela Wood - 11/06/2022 2:03 PM EDT Patients Trent informed and verbalized understanding. Gabriela Wood * Telephone Encounter - Kolby Kim MD - 11/06/2022 1:37 PM EDT Same. Recheck two weeks * Telephone Encounter - Earlene Perez LPN - 11/06/2022 1:16 PM EDT Last INR: INR 2.6 11/06/2022 Current dose of coumadin is: 2.5mg daily. Previous INR (date and result): 2.8 10/27/22 Additional Clinical Information or narrative: no documented in this encounterWhite Hospital04-10-2023 History of Present illness Narrative* Kolby Kim MD - 11/06/2022 10:58 AM EDT Patient presents with: Hospital F/U HPI: Patient presents today for office visit for TCM Call placed 11/03 for TCM HOSPITAL/ER FOLLOW UP: Reason for visit: chest pain Which facility: [facility] Date of visit: 11/01/22 Discharge: 11/03/22 Diagnosis: NSTEMI, A fib Testing done: EKG and labs Treatment given: given metoprolol and amlodipine Current symptoms: only complains of pain in back and sides Was told to increase metoprolol to 100mg from 50mg but asking if she should do this. Also they added amlodipine 2.5mg but hasn't not started this because she wanted to ask about it first? Follow up scheduled with Kleber Real. Suggested she needs to take both. She declined c cath or any intervention. No chest pain or shortness of breath. No edema. MEDICATIONS: Current Outpatient Medications Medication Sig iv contrast (will be provided with radiology test) CT Chest W -Inject, intravenously, once for 1 dose.No IV access, insert saline lock prior to the beginning of sedation, infusion, injection of imaging exam. Discontinue saline lock post exam. If Pt. has a central line or IVAD, may access for administration according to line specific nursing protocol. Once exam is complete flush line and de-accessaccording to line specific nursing protocol in the CT contrast administration guidelines link. ergocalciferol 50,000 unit capsule (VITAMIN D2, DRISDOL) Take 1 capsule by mouth every other week. baclofen (LIORESAL) 10 mg tablet Take 1 tablet by mouth three times daily as needed (muscle spasms). montelukast (SINGULAIR) 10 mg tablet Take 1 tablet by mouth daily at bedtime. diclofenac (VOLTAREN) 1 % topical gel Apply 4 g to affected area four times daily. pregabalin (LYRICA) 25 mg capsule Take 1 capsule by mouth daily at bedtime for 30 days. BREO ELLIPTA 200-25 mcg/dose inhaler INHALE 1 PUFF BY MOUTH ONCE DAILY PARoxetine (PAXIL) 20 mg tablet Take 1 tablet by mouth once daily. LORazepam (ATIVAN) 1 mg tablet Take 0.5 tablets by mouth twice daily for 90 days. ferrous sulfate 325 mg (65 mg iron) tablet Take 1 tablet by mouth twice daily with meals. SPIRIVA RESPIMAT 2.5 mcg/actuation inhaler INHALE 2 SPRAYS BY MOUTH ONCE DAILY AT APPROXIMATELY THESAME TIME EACH DAY furosemide (LASIX) 40 mg tablet Take 1 tablet by mouth once daily. buPROPion XL (WELLBUTRIN XL) 150 mg 24 hr tablet Take 1 tablet by mouth once daily. warfarin (COUMADIN) 3 mg tablet 2.5 mg MW and 4.5 mg all other days or as directed (Patient taking differently: 2.5 mg or as directed) warfarin (COUMADIN) 2.5 mg tablet 2.5 mg MWF and 4.5 mg all other days or as directed (Patient taking differently: 2.5 mg daily or as directed) pantoprazole DR (PROTONIX) 40 mg tablet Take 1 tablet by mouth twice daily. potassium chloride ER (K-DUR, KLOR-CON) 20 mEq tablet Take 1 tablet by mouth once daily. albuterol (PROVENTIL) 2.5 mg /3 mL (0.083 %) nebulizer solution Use 3 mL via nebulizer every 6 hours as needed for wheezing/shortness of breath. DX: J45.40 Hx of moderate persistent Asthma warfarin (COUMADIN) 2.5 mg tablet 2.5 mg daily or as directed amiodarone (PACERONE) 200 mg tablet Take 100 mg by mouth once daily. albuterol HFA (PROAIR HFA) 90 mcg/actuation inhaler Inhale 2 Puffs as instructed every 4 hours as needed. budesonide-formoterol (SYMBICORT) 160-4.5 mcg/actuation inhaler Inhale 2 Puffs as instructed twice daily. acetaminophen (TYLENOL EXTRA STRENGTH) 500 mg tablet Take 1 tablet by mouth every 4 hours as neededfor Pain. RANGE FREQ? Nebulizer NEBULIZER FOR HOME USE and necessary supplies. DX: Hypoxemia, Pneumonia and Hemoptisis triamcinolone acetonide (NASACORT AQ) 55 mcg nasal inhaler Use 1 [place] in the nose once daily. pravastatin (PRAVACHOL) 80 mg tablet TAKE 1 TABLET BY MOUTH ONCE DAILY aspirin 81 mg chewable tablet Take 2 tablets by mouth once daily. metoprolol succinate XL, long acting, 50 mg 24 hr tablet Take 1 tablet by mouth once daily. ezetimibe(ZETIA 10 MG TAB) Take one(1) tablet daily. Current Facility-Administered Medications Medication Dose Route Frequency bupivacaine 7.5 mg injection (SENSORCAINE) 3 mL OTHER As Directed ALLERGIES: ALLERGIES Allergen Reactions Adhesive Rash Blistering at site of application. Dextromethorphan Other: See Comments, Mental Status Change Risperidone Other: See Comments Sulfa (Sulfonamide * Other: See Comments Renal dysfunction. Childhood reaction. Generalized swelling Celebrex [Celecoxib] Other: See Comments Migraine headache. Aricept [Donepezil] Myalgia muscle pain and difficulty walking Compazine [Prochlor* Other: See Comments low BP Crestor [Rosuvastat* GI Upset Gabapentin Intolerance Confusion, when coupled with norco Lipitor [Atorvastat* Myalgia Lisinopril Cough No Latex Allergy [O* Oxycodone Itching Penicillins Other: See Comments Heart palpitations. No rash or itch. Can take cephalosporins Prozac [Fluoxetine * Other: See Comments hallucinating Ultram [Tramadol Hc* Itching Codeine Itching PAST MEDICAL HISTORY Diagnosis Date Adjustment disorder with depressed mood Aortic valve disorder Dr. Mckay Carotid stenosis Compression deformity of vertebra Congestive heart failure (HCC) COPD (chronic obstructive pulmonary disease) (HCC) 01/03/2013 Esophageal reflux Normal EGD 12/2012 H/O aortic valve replacement INR should be 2.5 to 3.5 High blood pressure Hyperlipidemia Impaired glucose tolerance Intrinsic asthma 06/[address] done per Dr. Mckay Migraine Myalgia and myositis, unspecified Other forms of migraine Parkinsonism (HCC) Thyroid nodule Unspecified essential hypertension PAST SURGICAL HISTORY Procedure Laterality Date ANTERIOR COLPORRAPHY RPR CYSTOCELE W/CYSTO 2001 w/ uterosacral suspension CARDIOVERSION [facility]- Spring 2019 CLOSURE SEMILUNAR VALVE AORTIC/PULM SUTURE/PATCH 2003 had aortic valve replacement w/ bovine valve COLONOSCOPY FLX DX W/COLLJ SPEC WHEN PFRMD 01/15/2013 Colonoscopy COLSC FLX W/RMVL OF TUMOR POLYP LESION SNARE TQ 05/07/2017 Colonoscopy - cecal inflammatory polyps. Repeat in 5 yrs DISPLACEMENT THERAPY PROETZ TYPE x3 ESOPHAGOGASTRODUODENOSCOPY TRANSORAL DIAGNOSTIC 01/15/2013 EGD ESOPHAGOGASTRODUODENOSCOPY TRANSORAL DIAGNOSTIC 05/07/2017 EGD FOOT RIGHT OP SURGERY 05/05/2009 HEMORRHOIDECTOMY XTRNL 2/> COLUMN/GROUP LAPS VAGINAL HYSTERECTOMY UTERUS 250 GM/< 2002/2001 usvvs, enterocele repair,apr,lsc pvdr,cysto,spt LOW BACK DISK SURGERY 06/2011 OOPHORECTOMY PARTIAL/TOTAL UNI/BI PAST SURGICAL HISTORY OF 04/2012 Thyroid [id number] PAST SURGICAL HISTORY OF aug and september 2011 cataract removal PAST SURGICAL HISTORY OF 2013 aortic valve with On-X valve PERCUTANEOUS AORTIC VALVE REPLACEMENT 09/2013 POSTERIOR COLPORRHAPHY, REPAIR RECTOCELE 2001 SINUS SURGERY PROC UNLISTED [address] Styles ([place]), [address] Wood, 1 in [place] TONSILLECTOMY PRIMARY/SECONDARY <AGE 11 TOTAL ABDOMINAL HYSTERECT W/WO RMVL TUBE OVARY age 31 FAMILY HISTORY Problem Relation Age of Onset Heart Mother Heart Father Diabetes Brother Hypertension Brother Lipids Brother Lipids Daughter other (Depression) Daughter GI Son Lipids Son Diabetes Sister Lipids Sister Social History Tobacco Use Smoking status: Never Smokeless tobacco: Never Tobacco comments: Father smoked in childhood home. Spouse non-smoker. Vaping Use Vaping Use: Never used Substance Use Topics Alcohol use: No Drug use: No Reviewed current medications, allergies, past medical history, surgical history, family history andsocial history today. REVIEW OF SYSTEMS -is losing weight.. now adding boost. Discussed doing daily. All other reviewed and negative other than HPI. HEALTH MAINTENANCE: Reviewed health maintenance issues today and recommended the following in detail. ADVANCE DIRECTIVE DISCUSSION -on file VITALS: BP 150/86 Pulse 74 Wt 55.8 kg (123 lb) SpO2 92% BMI 24.02 kg/m Last 4 Encounter Wt Readings: Date: Wt: 10/26/2022 58.5 kg (129 lb) 09/29/2022 58.9 kg (129 lb 12.8 oz) 07/27/2022 59.1 kg (130 lb 6.4 oz) 07/06/2022 59.4 kg (131 lb) PHYSICAL EXAMINATION: General appearance: Well appearing, alert, in no acute distress, well-hydrated, well nourished. Skin: Skin color, texture, turgor normal, no suspicious rashes or lesions Head: Normocephalic, no masses, lesions, tenderness or abnormalities Lungs: Lungs clear to auscultation. No wheezing, rhonchi, rales Heart: RRR , audible click. gallop, or rubs. No ectopy, Abdomen: Normal abdominal exam, Abdomen soft, non-tender. Bowel sounds normal. No masses, organomegaly Extremities: No deformities, edema, skin discoloration, clubbing or cyanosis. Good capillary refill. Musculoskeletal: No joint swelling, deformity, or tenderness ASSESSMENT/PLAN: 1. NSTEMI (non-ST elevated myocardial infarction) (HCC) - ICD9: 410.70, ICD10: I21.4 (primary diagnosis) - take meds as directed. Call If any issues. See cardiology. Close follow up. - METOPROLOL SUCCINATE ER 50 MG TABLET,EXTENDED RELEASE 24 HR - AMLODIPINE 2.5 MG TABLET - CBC + DIFF - BASIC METABOLIC PNL 2. Paroxysmal atrial fibrillation (HCC) - ICD9: 427.31, ICD10: I48.0 - METOPROLOL SUCCINATE ER 50 MG TABLET,EXTENDED RELEASE 24 HR - AMLODIPINE 2.5 MG TABLET 3. Heart failure, diastolic, chronic (HCC) - ICD9: 428.32, ICD10: I50.32 4. Hyperlipidemia LDL goal <100 - ICD9: 272.4, ICD10: E78.5 - stable. 5. Aortic valve stenosis with insufficiency, etiology of cardiac valve disease unspecified - ICD9: 424.1, ICD10: I35.2 - on changes. 6. 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 7. Chronic obstructive pulmonary disease, unspecified COPD type (HCC) - ICD9: 496, ICD10: J44.9 8. Medication monitoring encounter - ICD9: V58.83, ICD10: Z51.81 - PROTHROMBIN TIME/PATIENT 9, weight loss. - ? Related to intake. Add boost daily. Check labs including tsh. Re evaluate next month Kolby Kim MD documented in this encounterWhite Hospital04-09-2023 NoteHNO ID: [id number] Author: Treva Chirnios APRN.PERLA Service: ? Author Type: Nurse Practitioner Type: Progress Notes Filed: 11/07/2022 1:55 PM Note Text: AMBULATORY TELEPHONE VISIT Elza Chu has consented to this telephone encounter. Persons Present: patient Pain level today:09/08 Chief Complaint/Reason: Bilateral L4/5 and L5/S1#1 HPI: Patient reports 80% relief from procedure with pain score of 0/10 for 3-4 length of time. Patient reports improved quality of life and increase in ability to perform ADL's. She is looking forward to the second test. Spouse sates she was in the hospital overnight for IL AND possible pneumonia 11/02/22. Dr. Kim is ordering a repeat CBC w/diff as she has an elevated white count. Ht 152.4 cm (5') Wt 58.5 kg (129 lb) BMI 25.19 kg/m? REVIEW OF SYSTEMS GENERAL: No weight loss, malaise or fevers HEENT: Negative for frequent or significant headaches, No changes in hearing or vision, no nose bleeds or other nasal problems NECK: Negative for lumps, goiter, pain and significant neck swelling RESPIRATORY: Negative for cough, hemoptysis, wheezing, COPD, dyspnea or shortness of breath CARDIOVASCULAR: Negative for chest pain, leg swelling, hypertension, CHF or palpitations GI: No nausea, vomiting, or diarrhea : No history of dysuria, frequency or incontinence MUSCULOSKELETAL: Negative for joint pain or swelling, back pain or muscle pain SKIN: Negative for lesions, rash, and itching PSYCH: Negative for sleep disturbance, mood disorder and recent psychosocial stressors HEMATOLOGY/LYMPHOLOGY: Negative for prolonged bleeding, bruising easily or swollen nodes ENDOCRINE: Negative for cold or heat intolerance, polyuria, polydipsia and goiter NEURO: No history of headaches, syncope, paralysis, seizures or tremors Data Reviewed: Most recent procedure Assessment: (M47.816) Lumbar spondylosis (primary encounter diagnosis) (M47.816) Facet arthropathy, lumbar Plan: #2 MBB 11/14/22- spouse will call with update on WBC and cardiac status whether she can move forward with #2 MBB Total Time Spent: 14 minutes Patient verbalizes understanding of home going instructions and is in agreement with the discharge plan. Patient questions were answered to their satisfaction. Treva Chirinos APRN.[facility] MRI Spine Report MRI LUMBAR SPINE WO CONTRAST Collected: 03/28/2016 12:34 PM (Final result) Narrative: * * *Final Report* * * DATE OF EXAM: Mar 28 2016 12:34PM RADHA [email or web address] - MRI LUMBAR SPINE WO CONTRAST / PROCEDURE REASON: multiple diagnoses * * * * Physician Interpretation * * * * RESULT: HISTORY: Low back pain with radiculopathy. COMPARISON: There are no prior exams for comparison on the digital archive at this time for comparison. EXAMINATION: Routine lumbosacral spine protocol without gadolinium. RESULTS: Counting reference: Lumbosacral junction. For the purposes of this report, L5S1 is considered the last lumbar type disc space. Paraspinal soft tissues: Paraspinal soft tissues are unremarkable. Alignment: Moderate curvature of the thoracic-lumbar spine concave to the right. Minimal retrolisthesis of L1 on L2. Alignment is otherwise normal. Bone marrow signal/fracture: No evidence of pathologic marrow infiltration. Acute compression fracture deformity of the L1 vertebral body with approximately 20% reduction in height and moderate inferior endplate compression. There is STIR hyperintensity within the vertebral body and corresponding low T1 signal intensity along the inferior endplate. Remaining lumbar vertebral bodies are normal in height. Conus: The conus is within normal limits of signal intensity and morphology. The conus terminates normally at L1. Lower thoracic spine: Visualized lower thoracic canal and foramina are patent. T12-L1: There is no significant central canal or neural foraminal stenosis. L1-L2: Bulging disk, facet, and ligamentous hypertrophy results in mild central canal narrowing and minimal neural foraminal narrowing. L2-L3: Bulging disk, facet, and ligamentous hypertrophy results in mild central canal narrowing and severe right neural foraminal narrowing. L3-L4: Bulging disk, facet, and ligamentous hypertrophy results in mild central canal narrowing and moderate right and severe left neural foraminal narrowing. L4-L5: Bulging disk, facet arthropathy, and ligamentous hypertrophy result in minimal effacement of anterior subarachnoid space and moderate right and severe left foraminal narrowing. L5-S1: Bulging disk, facet arthropathy, and ligamentous hypertrophy result in contact traversing bilateral S1 nerve roots and severe foraminal stenosis. Sacrum and iliac wings: Visible sacrum and iliac wings are normal. Presacral soft tissues within normal limits. Impression: IMPRESSION: Acute compression fracture deformity L1 vertebral body. Multilevel degenerative changes. Ventilating Expert: Souleymane (more content not included)...[facility] 11-05-2022 History of Present illness Narrative* Treva Chirinos APRN.SODA TESTER - 11/05/2022 10:58 AM EDT AMBULATORY TELEPHONE VISIT Elza Chu has consented to this telephone encounter. Persons Present: patient Pain level today:09/08 Chief Complaint/Reason: Bilateral L4/5 and L5/S1#1 HPI: Patient reports 80% relief from procedure with pain score of 0/10 for 3-4 length of time. Patient reports improved quality of life and increase in ability to perform ADL's. She is looking forward to the second test. Spouse sates she was in the hospital overnight for IL & possible pneumonia 11/02/22. Dr. Kim is ordering a repeat CBC w/diff as she has an elevated white count. Ht 152.4 cm (5') Wt 58.5 kg (129 lb) BMI 25.19 kg/m REVIEW OF SYSTEMS GENERAL: No weight loss, malaise or fevers HEENT: Negative for frequent or significant headaches, No changes in hearing or vision, no nose bleeds or other nasal problems NECK: Negative for lumps, goiter, pain and significant neck swelling RESPIRATORY: Negative for cough, hemoptysis, wheezing, COPD, dyspnea or shortness of breath CARDIOVASCULAR: Negative for chest pain, leg swelling, hypertension, CHF or palpitations GI: No nausea, vomiting, or diarrhea : No history of dysuria, frequency or incontinence MUSCULOSKELETAL: Negative for joint pain or swelling, back pain or muscle pain SKIN: Negative for lesions, rash, and itching PSYCH: Negative for sleep disturbance, mood disorder and recent psychosocial stressors HEMATOLOGY/LYMPHOLOGY: Negative for prolonged bleeding, bruising easily or swollen nodes ENDOCRINE: Negative for cold or heat intolerance, polyuria, polydipsia and goiter NEURO: No history of headaches, syncope, paralysis, seizures or tremors Data Reviewed: Most recent procedure Assessment: (M47.816) Lumbar spondylosis (primary encounter diagnosis) (M47.816) Facet arthropathy, lumbar Plan: #2 MBB 11/14/22- spouse will call with update on WBC and cardiac status whether she can move forwardwith #2 MBB Total Time Spent: 14 minutes Patient verbalizes understanding of home going instructions and is in agreement with the discharge plan. Patient questions were answered to their satisfaction. Treva Chirinos APRN.SODA TESTER MRI Spine Report MRI LUMBAR SPINE WO CONTRAST Collected: 03/28/2016 12:34 PM (Final result) Narrative: * * *Final Report* * * DATE OF EXAM: Mar 28 2016 12:34PM RADHA [email or web address] - MRI LUMBAR SPINE WO CONTRAST / PROCEDURE REASON: multiple diagnoses * * * * Physician Interpretation * * * * RESULT: HISTORY: Low back pain with radiculopathy. COMPARISON: There are no prior exams for comparison on the digital archive at this time for comparison. EXAMINATION: Routine lumbosacral spine protocol without gadolinium. RESULTS: Counting reference: Lumbosacral junction. For the purposes of this report, L5S1 is considered the last lumbar type disc space. Paraspinal soft tissues: Paraspinal soft tissues are unremarkable. Alignment: Moderate curvature of the thoracic-lumbar spine concave to the right. Minimal retrolisthesis of L1 on L2. Alignment is otherwise normal. Bone marrow signal/fracture: No evidence of pathologic marrow infiltration. Acute compression fracture deformity of the L1 vertebral body with approximately 20% reduction in height and moderate inferior endplate compression. There is STIR hyperintensity within the vertebral body and corresponding low T1 signal intensity along the inferior endplate. Remaining lumbar vertebral bodies are normal in height. Conus: The conus is within normal limits of signal intensity and morphology. The conus terminates normally at L1. Lower thoracic spine: Visualized lower thoracic canal and foramina are patent. T12-L1: There is no significant central canal or neural foraminal stenosis. L1-L2: Bulging disk, facet, and ligamentous hypertrophy results in mild central canal narrowing and minimal neural foraminal narrowing. L2-L3: Bulging disk, facet, and ligamentous hypertrophy results in mild central canal narrowing and severe right neural foraminal narrowing. L3-L4: Bulging disk, facet, and ligamentous hypertrophy results in mild central canal narrowing and moderate right and severe left neural foraminal narrowing. L4-L5: Bulging disk, facet arthropathy, and ligamentous hypertrophy result in minimal effacement of anterior subarachnoid space and moderate right and severe left foraminal narrowing. L5-S1: Bulging disk, facet arthropathy, and ligamentous hypertrophy result in contact traversing bilateral S1 nerve roots and severe foraminal stenosis. Sacrum and iliac wings: Visible sacrum and iliac wings are normal. Presacral soft tissues within normal limits. Impression: IMPRESSION: Acute compression fracture deformity L1 vertebral body. Multilevel degenerative changes. Ventilating Expert: PEYTON Transcribe Date/Time: Mar 28 2016 1:02P Dictated by : ELENITA REYES MD This examination was interpreted and the report reviewed and electronically signed by: ELENITA REYES MD on Mar 28 2016 1:06PM EST PDMP website currently unavailable. All prescriptions have been APPROPRIATELY filled. No suspiciousactivity was identified. 11/05/2022 by Treva Chirinos APRN.SODA TESTER [facility] Pate [facility] November 03, 2022 12:55pm Note Date/Time November 03, 2022 12:2 8pm [facility] Medical Records Department [address] [place] [id number] Discharge Summary 11/03/22 1226 MR#: [id number] Acct: [id number] Name: ELZA CHU Rep #:[id number] : 1945 76 From: Harry Colón PCP: Dr. Kolby Kim MD Status:ADM I N Location: [place] [address] Providers Date of Admission: 11/01/22 Date of Discharge: 11/03/22 Primary Care Physician: Dr. Kolby Kim MD Consultations 11/02/22 00:19 Consult: Cardiology Routine Consulting Provider: Evgeny Galicia Reason for Consult: Chest Pain EMERGENT Consult: No MD Notified: Yes Date Notified: 11/01/22 Time Notified: 23:03 Method of Notification: ED Physician Initiated Reason For Visit: NSTEMI Diagnosis Discharge Diagnosis (1) NSTEMI, initial episode of care: Status: Acute Code(s): I21.4 - Non-ST elevation (NSTEMI) myocardial infarction (2) PAF (paroxysmal atrial fibrillation): Status: Chronic Code(s): I48.0 - Paroxysmal atrial fibrillation (3) History of mechanical aortic valve replacement: Status: Chronic Code(s): Z95.2 - Presence of prosthetic heart valve (4) Essential hypertension: Status: Chronic Code(s): I10 - Essential (primary) hypertension (5) COPD (chronic obstructive pulmonary disease): Status: Chronic Code(s): J44.9 - Chronic obstructive pulmonary disease, unspecified Plan This 76-year-old female admitted for left-sided chest pressure with radiation to left shoulder started about 5 PM on day of admission. She was recently discharged on 10/23 after a viral pneumonia and was discharged on doxycycline which she completed. Serial troponins were high. Patient was admitted with a diagnosis of non-STEMI. 1. Non-STEMI with history of prior coronary artery disease: Patient was admitted in PCU. Twelve-lead EKG did not show significant ST-T changes. Patient was seen by knitter helper. The patient refused for any cardiac intervention or cardiac cath. Patient medications were optimized with baby aspirin and metoprolol succinate and low-dose amlodipine. Patient last echo wasin May 2022 reported EF 60% with normal LV systolic function. LA moderately enlarged. Mild MR. Stable appearing mechanical aortic valve apparatus. Mild aortic stenosis. 2. Paroxysmal A-fib: Patient is on warfarin. INR therapeutic 3. Mechanical aortic valve replacement on warfarin. Rest as mentioned above. 4. ROXANA resolved. 5. Hypertension and dyslipidemia: Patient on lisinopril and low-dose amlodipine. On a statin 6. Mild leukocytosis likely related to recent pneumonia and steroid usage: Leukocytosis resolved. She completed doxycycline. 7.. Asthma/bronchiectasis ? Stable ? Continue with her home inhalers 8. GERD ? Stable On PPI and Pepcid 9 anxiety/depression/Lewy body dementia: Home medication reconciliation ? She is currently getting worked up for Lewy body dementia at [facility] Main [facility] DVT: Therapeutic INR Prescriptions for metoprolol succinate, baby aspirin, low-dose amlodipine 2.5 mgdaily and sublingual as needed nitroglycerin tablets sent to the patient's preferred pharmacy. Discharge medication reconciliation done. Discharge follow-up instructions completed. Discharge process discussed with the patient and all questions wereanswered to patient's satisfaction. Total time spent, exact 35 minutes on discharge meds reconciliation, examination, coordination of care with nurses and ancillary staff, review of imaging and blood test and discussion with the patient on follow-up instructions. Medications at Discharge Home Medications pantoprazole 40 mg tablet,delayed release 40 mg PO BID ACID REFLUX 01/14/15 bupropion HCl 150 mg 24 hr tablet, extended release 150 mg PO DAILY DEPRESSION 11/15/15 montelukast 10 mg tablet 10 mg PO QHS ALLERGIES 05/03/17 potassium chloride 20 mEq tablet,extended release(part/cryst) 20 meq PO DAILY SUPPLEMENT 05/03/17 lorazepam 0.5 mg tablet 0.5 mg PO BID PRN ANXIETY 09/04/17 furosemide 40 mg tablet 40 mg PO DAILY WATER PILL ##0 12/06/17 cholecalciferol (vitamin D3) 1,250 mcg (50,000 unit) capsule 50,000 unit PO FR SUPPLEMENT 06/16/19 acetaminophen 650 mg tablet,extended release 650 mg PO Q6H PRN BACK PAIN 07/07/20 albuterol sulfate 2.5 mg/3 mL (0.083 %) solution for nebulization 2.5 mg (3 mL) inhalation Q4H PRN #25 vials 05/21/21 triamcinolone acetonide 55 mcg nasal spray aerosol (Nasacort) 1 spray intranasalDAILY #16.9 mL 06/10/21 albuterol sulfate 90 mcg/actuation aerosol inhaler 2 puff inhalation Q4H PRN shortness of breath or wheezing #8.5 grams 10/04/21 famotidine 20 mg tablet 20 mg PO DAILY PRN gerd 11/29/21 ferrous sulfate 325 mg (65 mg iron) tablet 325 mg PO BID Check with primary doctor 11/29/21 paroxetine HCl 20 mg tablet 10 mg PO BID Check with primary doctor 11/29/21 guaifenesin 1,200 mg tablet, extended release 12 hr 1,200 mg PO Q12H #60 tabs 04/04/22 fluticasone furoate 200 mcg-vilanterol 25 mcg/dose inhalation powder (Breo Ellipta) 1 inh inhalation DAILY #60 ea 08/07/22 pravastatin 80 mg tablet 80 mg PO QHS CHOLESTEROL LOWERING #90 tabs 09/25/22 tiotropium bromide 2.5 mcg/actuation mist for inhalation (Spiriva Respimat) 2 puff inhalation QDAY #3 ea 10/17/22 amiodarone 200 mg tablet 100 mg PO DAILY Check with primary doctor 10/20/22 ezetimibe 10 mg tablet (Zetia) 10 mg PO DAILY Check with primary doctor 10/20/22 warfarin 2.5 mg tablet 2.5 mg PO DAILY Check with primary doctor 10/20/22 prednisone 20 mg tablet 40 mg PO DAILY 3 days #6 TABLETS 10/23/22 amlodipine 2.5 mg tablet 2.5 mg PO DAILY 30 days #30 tabs 11/03/22 aspirin 81 mg tablet,delayed release 81 mg PO BREAKFAST 30 days #30 tabs 11/03/22 metoprolol succinate 100 mg tablet,extended release 24 hr 100 mg PO DAILY 30 days #30 tabs 11/03/22 nitroglycerin 0.4 mg sublingual tablet 0.4 mg sublingual Q5M PRN Cardiac/Chest Pain 30 days #30 tabs 11/03/22 Physical Exam Narrative Seen and examined. Patient wants to go home. Does not have shortness of breath chest pain or tightness. Discussed with the knitter helper. Physical exam General: Alert, Oriented x3, Cooperative HEENT: Atraumatic, PERRLA, EOMI, Normocephalic Oral oral mucosa moist.: No Gingival or Mucosal Lesions/ Ulcerations Neck: Supple, No JVD, Negative Carotid Bruits Lungs: Air entry diminished in bilateral lung bases. No crepitation/rhonchi Cardiovascular: Regular rate, Regular Rhythm, Normal S1, Normal S2, mechanical aortic valve click present. No diastolic murmur. Abdomen: Bowel Sounds Present, Soft, Non Tender, Non-Distended : No renal angle tenderness. No suprapubic tenderness. Extremities: No edema, Capillary Refill Less than 3 Seconds Skin: No rashes, No breakdown Musculoskeletal: No Tenderness to Palpation of Joints or Extremities, ROM intact. Neurological: Cranial nerves II-XII grossly intact, DTR 2+/4 and Symmetrical, Neuro grossly intact Psych/Mental Status: Normal Affect, Appropriate. Medical Records Data Medical Nutrition Assessment Dietitian: Malnutrition Criteria Met Start: 11/02/22 14:45 Freq: Status: Active Protocol: Document 11/02/22 14:45 AG (Rec: 11/02/22 14:45 AG [id number]) Nutrition Malnutrition Evidence of Malnutrition Exists Yes Malnutrition (severe): Chronic Evidenced By Suboptimal Energy Intake ( Severe),Weight Loss (Severe) Clinical Problem Chronic Disease or Condition Related Malnutrition Etiology severe, chronic malnutrition related to inadequate energy intake d/t decreased appetite Signs/Symptoms as evidenced by unintentional 29.2#/19% wt loss x 6 months; estimated PO intake meeting < 75% of estimated energy needs > 3 months Status Active Problem Recommendation Dietitian Recommendations/Changes continue cardiac diet as tolerated; will adjust ONS to ensure clear 120mL 4x/day per pt preference. Will monitor PO intake and add additional ONS /adjust diet as indicated. Weight / BMI Weight Weight: 120 lb 13.013 oz Body Mass Index (BMI) 23.6 ABG / Lab / Microbiology Data Result Diagrams: 11/03/22 05:45 11/03/22 05:45 Laboratory: Laboratory Results - last 24 hr 11/03/22 05:45: WBC 9.1, RBC 4.18 L, Hgb 11.6 L, Hct 38.9, MCV 93.1, MCH 27.8, MCHC 29.8 L D, RDW Std Deviation 48.6 H, RDW Coeff of Loki 14.2, Plt Count 323, MPV 10.2, Immature Gran % (Auto) 0.900, Neut % (Auto) 81.6 H, Lymph % (Auto) 7.8L, [place] % (Auto) 7.8, Eos % (Auto) 1.6, Baso % (Auto) 0.3, Absolute Neuts (auto)7.4, Absolute Lymphs (auto) 0.71 L, Nucleated RBC % 0 11/03/22 05:45: PT 27.9 H, INR 2.7 11/03/22 05:45: Sodium 140, Potassium 3.5, Chloride 104, Carbon Dioxide 33.0 H, Anion Gap 3 L, BUN 13, Creatinine 0.90, Estim Creat Clear Calc 37.60, Est GFR (MDRD) Af Amer 78, Est GFR (MDRD) Non-Af 64, BUN/Creatinine Ratio 14.4, Glucose 87, Calcium 9.2 D/C Instructions Discharge Diet: 2000 mg Sodium Diet Weight Bearing Status: Weight bearing as tolerated Call your doctor if you observe: Fever of 101 or Higher, Coldness, Increased Pain, Numbness or Tingling, Change in Color, Inability to urinate, Inability to have a bowel movement, Using more than 1 pad per hour, Shortness of breath, Dizziness, Fainting spells, Swelling in the ankles, Chest pain, Prolonged hiccupping, Increased palpitations (irregular heartbeat) and Calf discomfort When: IN 2 WEEKS Meaningful Use Info Meaningful Use Diagnoses (Choose all that apply): None applicable and AMI AMI/Post PCI/Angioplasty Aspirin given w/in 24hrs of arrival?: Yes ASA at discharge?: Yes Statins at discharge?: Yes Ariadna/ARB at discharge?: Yes Beta Milka at discharge?: Yes Done w/ Acute IL measure.: Yes Discharge Plan Admission Admit Date/Time: 11/01/22 22:58 Primary Reason for Your Visit: NSTEMI Attending Provider: Harry Pate Primary Care Provider: Kolby Kim Consulting Providers: Evgeny Galicia ; Ivis Olvera ; Chu Liz Instructions Additional Instructions / Restrictions: Check PT/INR on 11/06/2022 and adjust her dose of warfarin accordingly Discharge Orders/Prescriptions Prescriptions: New metoprolol succinate 100 mg Tablet Extended Release 24 Hr 100 mg PO DAILY 30 Days Qty: 30 2RF amlodipine 2.5 mg Tablet 2.5 mg PO DAILY 30 Days Qty: 30 0RF nitroglycerin 0.4 mg Tablet, Sublingual 0.4 mg sublingual Q5M PRN (Reason: Cardiac/Chest Pain) 30 Days Qty: 30 0RF aspirin 81 mg Tablet,Delayed Release (Dr/Ec) 81 mg PO BREAKFAST 30 Days Qty: 30 2RF Continued cholecalciferol (vitamin D3) 50,000 unit capsule 50,000 unit PO FR albuterol sulfate 90 mcg/actuation HFA aerosol inhaler 2 puff inhalation Q4H PRN (Reason: shortness of breath or wheezing) Qty: 8.5 6RF Rx Instructions: administer with spacer ferrous sulfate 325 mg (65 mg iron) tablet 325 mg PO BID Label Comments: TAKE 1 TABLET BY MOUTH TWICE DAILY WITH MEALS guaifenesin 1,200 mg tablet extended release 12hr 1,200 mg PO Q12H Qty: 60 6RF pantoprazole 40 MG tablet 40 mg PO BID Label Comments: stomach lorazepam 0.5 MG tablet 0.5 mg PO BID PRN (Reason: ANXIETY) Label Comments: anxiety bupropion HCl 150 MG tablet extended release 24 hr 150 mg PO DAILY Label Comments: depression potassium chloride 20 MEQ tablet 20 meq PO DAILY montelukast 10 MG tablet 10 mg PO QHS furosemide 40 MG tablet 40 mg PO DAILY Qty: 0 0RF Hold Instructions: Resume on 10/25/22. acetaminophen 650 MG tablet extended release 650 mg PO Q6H PRN (Reason: BACK PAIN) famotidine 20 mg tablet 20 mg PO DAILY PRN (Reason: gerd) Label Comments: TAKE 1 TABLET BY MOUTH AT BEDTIME NEEDED paroxetine HCl 20 mg tablet 10 mg PO BID albuterol sulfate 2.5 MG/3 ML solution for nebulization 2.5 mg inhalation Q4H PRN Qty: 25 0RF Rx Instructions: Use q4 hours and PRN for wheezing amiodarone 200 mg tablet 100 mg PO DAILY ezetimibe [Zetia] 10 mg tablet 10 mg PO DAILY warfarin 2.5 mg Tablet 2.5 mg PO DAILY prednisone 20 mg tablet 40 mg PO DAILY 3 Days Qty: 6 0RF triamcinolone acetonide [Nasacort] 55 mcg aerosol,spray 1 spray INTRANASAL DAILY Qty: 16.9 6RF fluticasone furoate-vilanterol [Breo Ellipta] 200-25 mcg/dose blister with device 1 inh inhalation DAILY Qty: 60 11RF pravastatin 80 mg tablet 80 mg PO QHS Qty: 90 3RF Spiriva Respimat 2.5 mcg/actuation mist 2 puff inhalation QDAY Qty: 3 3RF Rx Instructions: administer at approximately the same time(s) each day Discontinued aspirin 81 MG tablet,chewable 162 mg PO DAILY Label Comments: blood thinner/heart metoprolol succinate 50 mg tablet extended release 24 hr See Rx Instructions .ROUTE .COMPLEX Rx Instructions: TAKE 1 TABLET BY MOUTH DAILY FOR BLOOD PRESSURE doxycycline monohydrate 100 mg capsule 100 mg PO BID 3 Days Qty: 7 0RF Referrals / Follow Up: Evgeny Galicia MD [Med Staff - Active Staff] - Within 1 Month Kolby Kim MD [Primary Care Provider] - Disposition Disposition (needs filled in before D/C Order can be placed): Home, Self Care Charges/Coding Visit Charges Inpatient E&M: 19393 Disch Hosp >30min 11/03/22 1255 <Electronically signed by Harry Pate MD> Cosigner Signature (if applicable): CC: Dr. Harry Pate MD; Dr. Kolby Kim MD~ Signed [facility] Work Phone: [phone] 924-588104-07-[address] Pate [facility] November 03, 2022 12:26pm Note Date/Time November 03, 2022 9:34 am [facility] Medical Records Department [address] [place] [address] Instructions for Home/Discharge Instructions 11/03/22 0934 MR#: [id number] Acct: [id number] Name: ELZA CHU Rep #:[id number] : 1945 76 From: Harry Colón PCP: Dr. Kolby Kim MD Status:ADM I N Discharge Instructions Diet Discharge Diet: 2000 mg Sodium Diet Activity Discharge Activity: Return to Normal Activity Weight Bearing Status: Weight bearing as tolerated Dressing / Incision Call your doctor if you observe: Fever of 101 or Higher, Coldness, Increased Pain, Numbness or Tingling, Change in Color, Inability to urinate, Inability to have a bowel movement, Using more than 1 pad per hour, Shortness of breath, Dizziness, Fainting spells, Swelling in the ankles, Chest pain, Prolonged hiccupping, Increased palpitations (irregular heartbeat) and Calf discomfort Follow Up Care When: IN 2 WEEKS Test Results: Test results from this visit will be discussed in further detail at your follow- up appointment, if applicable. Discharge Plan Admission Admit Date/Time: 11/01/22 22:58 Primary Reason for Your Visit: NSTEMI Attending Provider: Harry Pate Primary Care Provider: Kolby Kim Consulting Providers: Evgeny Galicia ; Ivis Olvera ; Chu Liz Instructions Additional Instructions / Restrictions: Check PT/INR on 11/06/2022 and adjust her dose of warfarin accordingly Discharge Orders/Prescriptions Prescriptions: New metoprolol succinate 100 mg Tablet Extended Release 24 Hr 100 mg PO DAILY 30 Days Qty: 30 2RF amlodipine 2.5 mg Tablet 2.5 mg PO DAILY 30 Days Qty: 30 0RF nitroglycerin 0.4 mg Tablet, Sublingual 0.4 mg sublingual Q5M PRN (Reason: Cardiac/Chest Pain) 30 Days Qty: 30 0RF aspirin 81 mg Tablet,Delayed Release (Dr/Ec) 81 mg PO BREAKFAST 30 Days Qty: 30 2RF Continued cholecalciferol (vitamin D3) 50,000 unit capsule 50,000 unit PO FR albuterol sulfate 90 mcg/actuation HFA aerosol inhaler 2 puff inhalation Q4H PRN (Reason: shortness of breath or wheezing) Qty: 8.5 6RF Rx Instructions: administer with spacer ferrous sulfate 325 mg (65 mg iron) tablet 325 mg PO BID Label Comments: TAKE 1 TABLET BY MOUTH TWICE DAILY WITH MEALS guaifenesin 1,200 mg tablet extended release 12hr 1,200 mg PO Q12H Qty: 60 6RF pantoprazole 40 MG tablet 40 mg PO BID Label Comments: stomach lorazepam 0.5 MG tablet 0.5 mg PO BID PRN (Reason: ANXIETY) Label Comments: anxiety bupropion HCl 150 MG tablet extended release 24 hr 150 mg PO DAILY Label Comments: depression potassium chloride 20 MEQ tablet 20 meq PO DAILY montelukast 10 MG tablet 10 mg PO QHS furosemide 40 MG tablet 40 mg PO DAILY Qty: 0 0RF Hold Instructions: Resume on 10/25/22. acetaminophen 650 MG tablet extended release 650 mg PO Q6H PRN (Reason: BACK PAIN) famotidine 20 mg tablet 20 mg PO DAILY PRN (Reason: gerd) Label Comments: TAKE 1 TABLET BY MOUTH AT BEDTIME NEEDED paroxetine HCl 20 mg tablet 10 mg PO BID albuterol sulfate 2.5 MG/3 ML solution for nebulization 2.5 mg inhalation Q4H PRN Qty: 25 0RF Rx Instructions: Use q4 hours and PRN for wheezing amiodarone 200 mg tablet 100 mg PO DAILY ezetimibe [Zetia] 10 mg tablet 10 mg PO DAILY warfarin 2.5 mg Tablet 2.5 mg PO DAILY prednisone 20 mg tablet 40 mg PO DAILY 3 Days Qty: 6 0RF doxycycline monohydrate 100 mg capsule 100 mg PO BID 3 Days Qty: 7 0RF triamcinolone acetonide [Nasacort] 55 mcg aerosol,spray 1 spray INTRANASAL DAILY Qty: 16.9 6RF fluticasone furoate-vilanterol [Breo Ellipta] 200-25 mcg/dose blister with device 1 inh inhalation DAILY Qty: 60 11RF pravastatin 80 mg tablet 80 mg PO QHS Qty: 90 3RF Spiriva Respimat 2.5 mcg/actuation mist 2 puff inhalation QDAY Qty: 3 3RF Rx Instructions: administer at approximately the same time(s) each day Discontinued aspirin 81 MG tablet,chewable 162 mg PO DAILY Label Comments: blood thinner/heart metoprolol succinate 50 mg tablet extended release 24 hr See Rx Instructions .ROUTE .COMPLEX Rx Instructions: TAKE 1 TABLET BY MOUTH DAILY FOR BLOOD PRESSURE Referrals / Follow Up: Evgeny Galicia MD [Med Staff - Active Staff] - Within 1 Month Kolby Kim MD [Primary Care Provider] - Disposition Disposition (needs filled in before D/C Order can be placed): Home, Self Care 11/03/22 1226<Electronically signed by Harry Pate MD>Harry Pate MD CC: Dr. Evgeny Galicia MD; Dr. Ivis Olvera DO; Dr. Chu Liz MD; Dr.William Julio MD ~ Signed [facility] Work Phone: [phone]) [phone] Galicia [facility] November 03, 2022 12:14pm Note Date/Time November 03, 2022 12:1 4pm [facility] Medical Records Department [address] [place] [id number] Progress Note - Cardiology 11/03/22 1211 MR#: [id number] Acct: [id number] Name: ELZA CHU Rep #:[id number] : 1945 76 From: Evgeny Galicia MD PCP: Dr. Kolby Kim MD Status:ADM I N Location: [place] [address] Subjective Subjective Denies any complaints today. Objective Data Vital Signs: Vital Signs Temp Pulse Resp BP Pulse Ox O2 Del Method O2 Flow Rate 98.2 F 65 14 160/75 H 92 Room Air 2 11/03/22 08:30 11/03/22 08:37 11/03/22 08:30 11/03/22 08:30 11/03/22 10:06 11/03/22 08:30 11/03/22 07:01 Oxygen Flow Rate (L/min) 2 Oxygen Delivery Method Room Air Weight: 120 lb 13.013 oz Body Mass Index (BMI) 23.6 Intake & Output: Intake and Output for Last 24 Hours 11/01/22 11/02/22 11/03/22 23:59 23:59 23:59 Intake Total 1420 / 1620 600 / 600 Balance 1420 / 1620 600 / 600 Lab / Micro Data Result Diagrams: 11/03/22 05:45 11/03/22 05:45 Labs: Laboratory Results - last 24 hr 11/03/22 05:45: WBC 9.1, RBC 4.18 L, Hgb 11.6 L, Hct 38.9, MCV 93.1, MCH 27.8, MCHC 29.8 L D, RDW Std Deviation 48.6 H, RDW Coeff of Loki 14.2, Plt Count 323, MPV 10.2, Immature Gran % (Auto) 0.900, Neut % (Auto) 81.6 H, Lymph % (Auto) 7.8L, [place] % (Auto) 7.8, Eos % (Auto) 1.6, Baso % (Auto) 0.3, Absolute Neuts (auto)7.4, Absolute Lymphs (auto) 0.71 L, Nucleated RBC % 0 11/03/22 05:45: PT 27.9 H, INR 2.7 11/03/22 05:45: Sodium 140, Potassium 3.5, Chloride 104, Carbon Dioxide 33.0 H, Anion Gap 3 L, BUN 13, Creatinine 0.90, Estim Creat Clear Calc 37.60, Est GFR (MDRD) Af Amer 78, Est GFR (MDRD) Non-Af 64, BUN/Creatinine Ratio 14.4, Glucose 87, Calcium 9.2 Rhythm Strip Rhythm Strip: Sinus Rhythm Rate: 82 Ectopy: None Cardiology Labs/Tests 11/03/22 05:45: WBC 9.1, RBC 4.18 L, Hgb 11.6 L, Hct 38.9, MCV 93.1, MCH 27.8, MCHC 29.8 L D, Plt Count 323, MPV 10.2, Immature Gran % (Auto) 0.900, Neut % (Auto) 81.6 H, Lymph % (Auto) 7.8 L, [place] % (Auto) 7.8, Eos % (Auto) 1.6, Baso %(Auto) 0.3, Absolute Neuts (auto) 7.4, Nucleated RBC % 0 11/03/22 05:45: PT 27.9 H, INR 2.7 11/03/22 05:45: Sodium 140, Potassium 3.5, Chloride 104, Carbon Dioxide 33.0 H, Anion Gap 3 L, BUN 13, Creatinine 0.90, Est GFR (MDRD) Af Amer 78, Est GFR (MDRD) Non- Af 64, BUN/Creatinine Ratio 14.4, Glucose 87, Calcium 9.2 Rhythm: EKG: ECHO: Stress Test: Cardiac Cath: PCI: CT Surgery: Holter monitor: EPS: PPM: CXR: Chest CT Scan: Physical Exam Narrative Comfortable, no acute distress. Mechanical heart sound audible. Chest examination reveals markedly decreased air entry bilaterally with scattered wheeze. Alert oriented x3. No ankle edema noted. Assessment & Plan Assessment/Plan (1) NSTEMI, initial episode of care: PLAN: Presently asymptomatic. Does not want any further cardiac work-up. Continue medical management. (2) PAF (paroxysmal atrial fibrillation): PLAN: Maintaining normal sinus rhythm on amiodarone. (3) History of mechanical aortic valve replacement: PLAN: Continue warfarin for anticoagulation. (4) Essential hypertension: PLAN: Controlled. (5) COPD (chronic obstructive pulmonary disease): PLAN: As per internal medicine. 11/03/22 1214 <Electronically signed by Evgeny Galicia MD> Cosigner Signature (if applicable): CC: ~ Signed [facility] Work Phone: [phone] 737-126404-07-2023 History of Present illness Narrative* Kiana Dominguez JOANNA - 11/03/2022 2:04 PM EDT TRANSITION CARE MANAGEMENT (TCM) INITIAL CONTACT [employer] Outreach Provider Action/FYI: Left message for patient to return call. Keily Mcpherson Ma Initial contact with patient post discharge, spoke to patient. Patient identified by name and . TRANSITION CARE MANAGEMENT INITIAL OUTREACH DOCUMENTATION: Date of Outreach: 10/24/2022 Outreach Attempt 1: Contact Made Date of Discharge 10/23/2022 Some recent data might be hidden SUMMARY: -Pt discharged from [facility] on 11/03/22. -Admitted for: NSTEMI Do you have a hospital follow up appointment with your PCP? Appointment: Pt is scheduled with Dr Julio peña on 11/06 and [facility] f/u 11/06 Yes. Remind patient of appointment date, time, and location. If not within 14 calendar days of discharge - please reschedule accordingly. MEDICATIONS: Many patients have questions or concerns about their medications once they are home. Were you prescribed any new medications? Yes If yes, what are those medications? Metoprolol 100 mg Amlodipine 2.5 mg, ASA 81 delayed release, Nitro 0.4 mg tab as needed Were you told to hold any medications? No Were any of your medications discontinued? No Do you have any questions about getting or taking your medications? Yes, Script - needs a refill or did not get a prescription written, she said getting rx filled right now today. Your discharge instructions/After visit Summary (AVS) are important in guiding you through the recovery process. Is there anything I might help you understand? No Do you have all the necessary equipment and supplies at home? No, follow site specific process to secure durable medical equipment and/or supplies for the patient, handoff to RN/DIRECTOR STAFFING, or LIP Medical records from recent hospitalization: Care Everywhere [facility] Galicia [facility] November 02, 2022 9:47am Note Date/Time November 02, 2022 9:47 am [facility] Medical Records Department [address] [place] [address] Consultation - Cardiology 11/02/22937 MR#: [id number] Acct: [id number] Name: ELZA CHU Rep #:[id number] : 1945 76 From: Evgeny Galicia MD PCP: Dr. Kolby Kim MD Status:ADM I N Location: [place] [address] Assessment & Plan Assessment/Plan (1) NSTEMI, initial episode of care: PLAN: Presently asymptomatic. Options discussed with patient. Cardiac catheterization versus medical management discussed. Patient absolutely refusesto entertain any cardiac work-up at all. She opts for medical management and wishes to go home. Start on aspirin. Start on low-dose beta-blockers and amlodipine. (2) PAF (paroxysmal atrial fibrillation): PLAN: Maintaining normal sinus rhythm on amiodarone. (3) History of mechanical aortic valve replacement: PLAN: Continue warfarin for anticoagulation. (4) Essential hypertension: PLAN: Controlled. (5) COPD (chronic obstructive pulmonary disease): PLAN: As per internal medicine. HPI Consult Data Date of Consult: 11/02/22 HPI Narrative Reason for Consultation: NSTEMI HPI Narrative: The patient presented to the hospital with complaints of chest pain. She described the chest pain as radiating to her left shoulder. This was relieved with rest. Since then, she has been asymptomatic. Patient has previous history of aortic valve disease status post replacement with a mechanical valve. Also history of mild CAD. History of paroxysmal atrial fibrillation, maintaining normal sinus rhythm on amiodarone. 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 Nonrheumatic aortic valve regurgitation Nonspecific chest pain Obesity Palpitations Severe sepsis Syncope and collapse Home Medications pantoprazole 40 mg tablet,delayed release 40 mg PO BID ACID REFLUX 01/14/15 [History Last Taken 07/07/20] bupropion HCl 150 mg 24 hr tablet, extended release 150 mg PO DAILY DEPRESSION 11/15/15 [History Last Taken 07/07/20] montelukast 10 mg tablet 10 mg PO QHS ALLERGIES 05/03/17 [History Last Taken 07/06/20] potassium chloride 20 mEq tablet,extended release(part/cryst) 20 meq PO DAILY SUPPLEMENT 05/03/17 [History Last Taken 07/06/20] aspirin 81 mg chewable tablet 162 mg PO DAILY HEART HEALTH 09/04/17 [History Last Taken 07/07/20] lorazepam 0.5 mg tablet 0.5 mg PO BID PRN ANXIETY 09/04/17 [History Last Taken 07/07/20] furosemide 40 mg tablet 40 mg PO DAILY WATER PILL ##0 12/06/17 [Rx Last Taken 07/06/20] cholecalciferol (vitamin D3) 1,250 mcg (50,000 unit) capsule 50,000 unit PO FR SUPPLEMENT 06/16/19 [History Last Taken 06/25/20] acetaminophen 650 mg tablet,extended release 650 mg PO Q6H PRN BACK PAIN 07/07/20 [History Last Taken 07/07/20] albuterol sulfate 2.5 mg/3 mL (0.083 %) solution for nebulization 2.5 mg (3 mL) inhalation Q4H PRN #25 vials 05/21/21 [Rx Last Taken Unknown] triamcinolone acetonide 55 mcg nasal spray aerosol (Nasacort) 1 spray intranasalDAILY #16.9 mL 06/10/21 [Rx Last Taken Unknown] albuterol sulfate 90 mcg/actuation aerosol inhaler 2 puff inhalation Q4H PRN shortness of breath or wheezing #8.5 grams 10/04/21 [Rx Last Taken Unknown] famotidine 20 mg tablet 20 mg PO DAILY PRN gerd 11/29/21 [History Last Taken Unknown] ferrous sulfate 325 mg (65 mg iron) tablet 325 mg PO BID Check with primary doctor 11/29/21 [History Last Taken Unknown] paroxetine HCl 20 mg tablet 10 mg PO BID Check with primary doctor 11/29/21 [History Last Taken Unknown] guaifenesin 1,200 mg tablet, extended release 12 hr 1,200 mg PO Q12H #60 tabs 04/04/22 [Rx Last Taken Unknown] fluticasone furoate 200 mcg-vilanterol 25 mcg/dose inhalation powder (Breo Ellipta) 1 inh inhalation DAILY #60 ea 08/07/22 [Rx Last Taken Unknown] pravastatin 80 mg tablet 80 mg PO QHS CHOLESTEROL LOWERING #90 tabs 09/25/22 [Rx Last Taken Unknown] tiotropium bromide 2.5 mcg/actuation mist for inhalation (Spiriva Respimat) 2 puff inhalation QDAY #3 ea 10/17/22 [Rx Last Taken Unknown] amiodarone 200 mg tablet 100 mg PO DAILY Check with primary doctor 10/20/22 [History Last Taken Unknown] ezetimibe 10 mg tablet (Zetia) 10 mg PO DAILY Check with primary doctor 10/20/22[History Last Taken Unknown] metoprolol succinate 50 mg tablet,extended release 24 hr See Rx Instructions .Route .COMPLEX Check with primary doctor 10/20/22 [History Last Taken Unknown] warfarin 2.5 mg tablet 2.5 mg PO DAILY Check with primary doctor 10/20/22 [History Last Taken Unknown] doxycycline monohydrate 100 mg capsule 100 mg PO BID 3 days #7 CAPSULES 10/23/22[Rx Last Taken Unknown] prednisone 20 mg tablet 40 mg PO DAILY 3 days #6 TABLETS 10/23/22 [Rx Last Taken Unknown] Allergy/AdvReac Type Severity Reaction Status Date / Time donepezil Allergy Severe shortness Verified 11/01/22 20:45 of breath risperidone Allergy Severe Confusion Verified 11/01/22 20:45 Sulfa (Sulfonamide Allergy Swelling Verified 11/01/22 20:45 Antibiotics) celecoxib [From Celebrex] AdvReac Severe Swelling Verified 11/01/22 20:45 dextromethorphan AdvReac Severe hallucinati Verified 11/01/22 20:45 [From Delsym] on adhesive AdvReac blisters Verified 11/01/22 20:45 codeine AdvReac Itching Verified 11/01/22 20:45 levofloxacin [From Levaquin] AdvReac pain in Verified 11/01/22 20:45 legs and swelling lisinopril AdvReac cough Verified 11/01/22 20:45 oxycodone [Oxycodone] AdvReac Itching Verified 11/01/22 20:45 oxycodone HCl [From Percocet] AdvReac Itching Verified 11/01/22 20:45 Penicillins AdvReac heart Verified 11/01/22 20:45 palpitations prochlorperazine edisylate AdvReac Low blood Verified 11/01/22 20:45 [From Compazine] pressure prochlorperazine maleate AdvReac Low blood Verified 11/01/22 20:45 [From Compazine] pressure tramadol HCl [From Ultram] AdvReac Itching Verified 11/01/22 20:45 Family History Mother Arthritis CAD (coronary artery disease) Father Arthritis High cholesterol CAD (coronary artery disease) Sister Diabetes High cholesterol Hypertension Brother Diabetes High cholesterol Hypertension Surgical History H/O aortic valve replacement History of back surgery History of foot surgery History of hysterectomy History of mechanical aortic valve replacement (~10/07/13) History of sinus surgery Social History (Updated 11/02/22 @ 00:49 by Danya Fay) household members: spouse number of children: 2 Smoking Status: Never smoker alcohol intake: never substance use type: does not use caffeine: Yes Type: coffee what type of physical activity do you participate in: none seatbelt use: always do you feel safe at home: Yes Physical Exam Narrative Appears chronically ill. Presently comfortable, no acute distress. Mechanical heart sound audible. Chest examination reveals markedly decreased air entry bilaterally with scattered wheeze. Alert oriented x3. No ankle edema noted. Risk Stratification Risk Stratification Applicable: No Objective Data Vital Signs: Vital Signs Temp Pulse Resp BP Pulse Ox O2 Del Method O2 Flow Rate 97.9 F 76 18 127/82 H 97 Nasal Cannula 2 11/02/22 07:52 11/02/22 07:52 11/02/22 07:52 11/02/22 07:52 11/02/22 07:52 11/02/22 08:15 11/02/22 08:15 Oxygen Flow Rate (L/min) 2 Oxygen Delivery Method Nasal Cannula Weight: 120 lb 13.013 oz Body Mass Index (BMI) 23.6 Intake & Output: Intake and Output for Last 24 Hours 10/31/22 11/01/22 11/02/22 23:59 23:59 23:59 Intake Total 100 / 100 Balance 100 / 100 Lab / Micro Data Result Diagrams: 11/02/22 03:50 11/02/22 03:50 Labs: Laboratory Results - last 24 hr 11/01/22 21:14: WBC 20.0 H, RBC 4.77, Hgb 13.4, Hct 43.3, MCV 90.8, MCH 28.1, MCHC 30.9 L, RDW Std Deviation 47.2 H, RDW Coeff of Loki 14.2, Plt Count 384, MPV10.2, Immature Gran % (Auto) 0.900, Neut % (Auto) 86.8 H, Lymph % (Auto) 5.1 L, [place] % (Auto) 6.5, Eos % (Auto) 0.4, Baso % (Auto) 0.3, Absolute Neuts (auto) 17.4 H, Absolute Lymphs (auto) 1.02, Nucleated RBC % 0 11/01/22 21:14: Sodium 140, Potassium 3.6, Chloride 103, Carbon Dioxide 31.0, Anion Gap 6, BUN 21 H, Creatinine 1.44 H, Estim Creat Clear Calc 23.50, Est GFR (MDRD) Af Amer 45 L, Est GFR (MDRD) Non-Af 37 L, BUN/Creatinine Ratio 14.6, Glucose 96, Calcium 9.5, Troponin I High Sens 389 H* 11/01/22 21:14: B-Natriuretic Peptide 102.0 H 11/01/22 21:14: PT 25.8 H, INR 2.4 11/01/22 21:14: Total Bilirubin 0.30, Direct Bilirubin 0.12, AST 16, ALT 15, Alkaline Phosphatase 88, Total Protein 6.8, Albumin 2.9 L, Globulin 3.9 11/01/22 23:32: Troponin I High Sens 340 H* 11/02/22 03:50: WBC 13.6 H, RBC 3.94 L, Hgb 11.4 L, Hct 36.1 L, MCV 91.6, MCH 28.9, MCHC 31.6 L, RDW Std Deviation 47.6 H, RDW Coeff of Loki 14.2, Plt Count 310, MPV 10.3, Immature Gran % (Auto) 0.700, Neut % (Auto) 84.5 H, Lymph % (Auto) 6.3 L, [place] % (Auto) 7.3, Eos % (Auto) 0.9, Baso % (Auto) 0.3, Absolute Neuts (auto) 11.5 H, Absolute Lymphs (auto) 0.86, Nucleated RBC % 0 11/02/22 03:50: Sodium 141, Potassium 3.3 L, Chloride 107, Carbon Dioxide 27.0, Anion Gap 7, BUN 19 H, Creatinine 1.09 H, Estim Creat Clear Calc 31.05, Est GFR (MDRD) Af Amer 63, Est GFR (MDRD) Non-Af 52 L, BUN/Creatinine Ratio 17.4, Glucose 84, Calcium 9.1, Magnesium 1.8, Total Bilirubin 0.40, AST 14 L, ALT 12 L, Alkaline Phosphatase 70, Total Protein 5.3 L, Albumin 2.3 L, Globulin 3.0, Albumin/Globulin Ratio 0.8 L, TSH 1.76 11/02/22 03:50: PT 28.0 H, INR 2.7 11/02/22 03:50: Phosphorus 3.0 11/02/22 03:50: Troponin I High Sens 287 H* Rhythm Strip Rhythm Strip: Sinus Rhythm Rate: 82 Ectopy: None Cardiology Labs/Tests 11/01/22 21:14: WBC 20.0 H, RBC 4.77, Hgb 13.4, Hct 43.3, MCV 90.8, MCH 28.1, MCHC 30.9 L, Plt Count 384, MPV 10.2, Immature Gran % (Auto) 0.900, Neut % (Auto) 86.8 H, Lymph % (Auto) 5.1 L, [place] % (Auto) 6.5, Eos % (Auto) 0.4, Baso %(Auto) 0.3, Absolute Neuts (auto) 17.4 H, Nucleated RBC % 0 11/01/22 21:14: Sodium 140, Potassium 3.6, Chloride 103, Carbon Dioxide 31.0, Anion Gap 6, BUN 21 H, Creatinine 1.44 H, Est GFR (MDRD) Af Amer 45 L, Est GFR (MDRD) Non-Af 37 L, BUN/Creatinine Ratio 14.6, Glucose 96, Calcium 9.5 11/01/22 21:14: B-Natriuretic Peptide 102.0 H 11/01/22 21:14: PT 25.8 H, INR 2.4 11/01/22 21:14: Total Bilirubin 0.30, Direct Bilirubin 0.12 11/02/22 03:50: WBC 13.6 H, RBC 3.94 L, Hgb 11.4 L, Hct 36.1 L, MCV 91.6, MCH 28.9, MCHC 31.6 L, Plt Count 310, MPV 10.3, Immature Gran % (Auto) 0.700, Neut %(Auto) 84.5 H, Lymph % (Auto) 6.3 L, [place] % (Auto) 7.3, Eos % (Auto) 0.9, Baso %(Auto) 0.3, Absolute Neuts (auto) 11.5 H, Nucleated RBC % 0 11/02/22 03:50: Sodium 141, Potassium 3.3 L, Chloride 107, Carbon Dioxide 27.0, Anion Gap 7, BUN 19 H, Creatinine 1.09 H, Est GFR (MDRD) Af Amer 63, Est GFR (MDRD) Non-Af 52 L, BUN/Creatinine Ratio 17.4, Glucose 84, Calcium 9.1, Magnesium 1.8, Total Bilirubin 0.40 11/02/22 03:50: PT 28.0 H, INR 2.7 11/02/22 03:50: Phosphorus 3.0 Rhythm: Normal sinus rhythm EKG: Normal sinus rhythm. No ischemic changes ECHO: Stress Test: Cardiac Cath: PCI: CT Surgery: Holter monitor: EPS: PPM: CXR: Chest CT Scan: Radiography Diagnostic Testing: Radiology Impression Chest X-Ray 11/01/22 21:11 IMPRESSION: Cardiomegaly without radiographic evidence of acute cardiopulmonary disease. Electronically Signed: Jean Mendiola MD at 21:50 EDT Reading Location ID and State: [facility] Tel , Service support , 11/02/22 0947 <Electronically signed by Evgeny Galicia MD> Cosigner Signature (if applicable): CC: Dr. Evgeny Galicia MD; Dr. Ivis Olvera DO; Dr. Kolby Kim MD~ Signed [facility] Work Phone: [phone]) 363-728404-06-[address] Liz [facility] November 02, 2022 8:55am Note Date/Time November 02, 2022 8:55 am [facility] Medical Records Department [address] [place] [address] Progress Note - Hospitalist 11/02/22 0848 MR#: [id number] Acct: [id number] Name: ELZA CHU Rep #:[id number] : 1945 76 From: Chu solano MD PCP: Dr. Kolby Kim MD Status:ADM I N Location: [place] [address] Subjective Subjective Doing well, denies any chest pain or shortness of breath. No issues overnight Objective Data Objective Data Vital Signs: Vital Signs Temp Pulse Resp BP Pulse Ox O2 Del Method O2 Flow Rate 97.9 F 76 18 127/82 H 97 Nasal Cannula 2 11/02/22 07:52 11/02/22 07:52 11/02/22 07:52 11/02/22 07:52 11/02/22 07:52 11/02/22 07:52 11/02/22 07:52 Oxygen Flow Rate (L/min) 2 Oxygen Delivery Method Nasal Cannula Weight: 120 lb 13.013 oz Body Mass Index (BMI) 23.6 Intake & Output: Intake and Output for Last 24 Hours 11/01/22 11/02/22 11/03/22 03:59 03:59 03:59 Intake Total 100 / 100 Balance 100 / 100 Lab / Micro Data Result Diagrams: 11/02/22 03:50 11/02/22 03:50 Labs: Laboratory Results - last 24 hr 11/01/22 21:14: WBC 20.0 H, RBC 4.77, Hgb 13.4, Hct 43.3, MCV 90.8, MCH 28.1, MCHC 30.9 L, RDW Std Deviation 47.2 H, RDW Coeff of Loki 14.2, Plt Count 384, MPV10.2, Immature Gran % (Auto) 0.900, Neut % (Auto) 86.8 H, Lymph % (Auto) 5.1 L, [place] % (Auto) 6.5, Eos % (Auto) 0.4, Baso % (Auto) 0.3, Absolute Neuts (auto) 17.4 H, Absolute Lymphs (auto) 1.02, Nucleated RBC % 0 11/01/22 21:14: Sodium 140, Potassium 3.6, Chloride 103, Carbon Dioxide 31.0, Anion Gap 6, BUN 21 H, Creatinine 1.44 H, Estim Creat Clear Calc 23.50, Est GFR (MDRD) Af Amer 45 L, Est GFR (MDRD) Non-Af 37 L, BUN/Creatinine Ratio 14.6, Glucose 96, Calcium 9.5, Troponin I High Sens 389 H* 11/01/22 21:14: B-Natriuretic Peptide 102.0 H 11/01/22 21:14: PT 25.8 H, INR 2.4 11/01/22 21:14: Total Bilirubin 0.30, Direct Bilirubin 0.12, AST 16, ALT 15, Alkaline Phosphatase 88, Total Protein 6.8, Albumin 2.9 L, Globulin 3.9 11/01/22 23:32: Troponin I High Sens 340 H* 11/02/22 03:45: Troponin I High Sens 287 H* 11/02/22 03:50: WBC 13.6 H, RBC 3.94 L, Hgb 11.4 L, Hct 36.1 L, MCV 91.6, MCH 28.9, MCHC 31.6 L, RDW Std Deviation 47.6 H, RDW Coeff of Loki 14.2, Plt Count 310, MPV 10.3, Immature Gran % (Auto) 0.700, Neut % (Auto) 84.5 H, Lymph % (Auto) 6.3 L, [place] % (Auto) 7.3, Eos % (Auto) 0.9, Baso % (Auto) 0.3, Absolute Neuts (auto) 11.5 H, Absolute Lymphs (auto) 0.86, Nucleated RBC % 0 11/02/22 03:50: Sodium 141, Potassium 3.3 L, Chloride 107, Carbon Dioxide 27.0, Anion Gap 7, BUN 19 H, Creatinine 1.09 H, Estim Creat Clear Calc 31.05, Est GFR (MDRD) Af Amer 63, Est GFR (MDRD) Non-Af 52 L, BUN/Creatinine Ratio 17.4, Glucose 84, Calcium 9.1, Magnesium 1.8, Total Bilirubin 0.40, AST 14 L, ALT 12 L, Alkaline Phosphatase 70, Total Protein 5.3 L, Albumin 2.3 L, Globulin 3.0, Albumin/Globulin Ratio 0.8 L, TSH 1.76 11/02/22 03:50: PT 28.0 H, INR 2.7 11/02/22 03:50: Phosphorus 3.0 Radiography Diagnostic Testing: Radiology Impression Chest X-Ray 11/01/22 21:11 IMPRESSION: Cardiomegaly without radiographic evidence of acute cardiopulmonary disease. Electronically Signed: Jean Mendiola MD at 21:50 EDT , Rhythm Strip Rhythm Strip: Sinus Rhythm Rate: 82 Ectopy: None Physical Exam Narrative General: Alert, Oriented x3, Cooperative, No apparent distress HEENT: Atraumatic, PERRLA, EOMI, Normocephalic Oral: Moist Mucosa Neck: Supple, No JVD Lungs: Diminished, Normal air movement, No rhonchi, slight wheeze, No rales Cardiovascular: Regular rate, Regular Rhythm, Normal S1, Normal S2, No murmurs Abdomen: Soft, Non Tender, Non-Distended, No Hepato-splenomegaly Extremities: No edema, Capillary Refill Less than 3 Seconds Skin: No rashes, No breakdown Musculoskeletal: No Tenderness to Palpation of Joints or Extremities Neurological: Cranial nerves II-XII grossly intact, Motor Exam 5/5 strength throughout, Sensory exam intact to light touch and pain Psych/Mental Status: Normal Affect, Appropriate Assessment & Plan Assessment/Plan (1) NSTEMI, initial episode of care: (2) Chest pain: (3) Leukocytosis: (4) ROXANA (acute kidney injury): PLAN: Plan 1. Non-STEMI unclear type/paroxysmal A-fib/CAD/HTN/HLD/history of aortic valve replacement/ROXANA ? Troponin is elevated but trending downwards ? No significant EKG changes ? Unsure as to the plan as cardiology has not seen her yet ? She is on Coumadin for her A-fib and this was supratherapeutic so this was discontinued but unclear as to cardiology's plans and no heparin drip ? Echo is pending ? Can resume her home aspirin as well as metoprolol, statin, Zetia ? ROXANA has resolved, creatinine is back to almost baseline 2. Leukocytosis likely related to recent pneumonia and steroid usage 3. Asthma/bronchiectasis ? Stable ? Continue with her home inhalers 4. GERD ? Stable Did continue with PPI and Pepcid 5. Anxiety/depression/Lewy body dementia ? Stable continue with her home medications ? She is currently getting worked up for Lewy body dementia at [facility] DVT: Therapeutic INR Charges/Coding Visit Charges Inpatient E&M: 04455 Subs Hosp L2 11/02/22 0855 <Electronically signed by Chu Liz MD> Cosigner Signature (if applicable): CC: ~ Signed [facility] Work Phone: [phone]) 905-606904-06-[address] Olvera [facility] November 02, 2022 12:58am Note Date/Time November 02, 2022 12:5 8am [facility] Medical Records Department [address] [place] [address] Progress Note - Hospitalist 11/02/22 0057 MR#: [id number] Acct: [id number] Name: ELZA CHU Rep #:[id number] : 1945 76 From: Ivis Olvera DO PCP: Dr. Kolby Kim MD Status:ADM I N Location: [place] [address] Hospitalist Note Case was discussed with cardiology-Dr. Galicia-by the emergency department physician. He did not give any input and stated he would see the patient in themorning. At this point I will hold the Coumadin as her INR is therapeutic at 2.5 for an aortic valve and they can decide tomorrow whether or not she needs reversed and placed on heparin drip. We will maintain n.p.o. after midnight in case cardiac catheterization is pursued. 11/02/2257 <Electronically signed by Ivis Olvera DO> Cosigner Signature (if applicable): CC: ~ Signed [facility] [facility] Work Phone: [phone] 936-803004-06-[address] Leavitt [facility] November 02, 2022 12:39am Note Date/Time November 02, 2022 12:3 9am [facility] Medical Records Department [address] [place] [address] Emergency Department Summary 11/02/22 MR#: [id number] Acct: [id number] Name: ELZA CHU Rep #:[id number] : 1945 76 From: Velma Swan PCP: Dr. Kolby Kim MD Status:ADM I N Location: [place] [address] HPI History of Present Illness Chief Complaint: Chest Pain Informant: patient Narrative Narrative: Patient is a 76-year-old female with history of proximal atrial fibrillation on chronic Coumadin therapy, mechanical heart valve, Lewy body dementia and recent admission for possible multifocal viral pneumonia presenting for chest pain. Patient states she was cooking when she developed a pressure on the left side of her chest. She denies any radiation. States this was around 5 PM. On my evaluation patient states her symptoms have subsided and she feels well again. She denies any swelling of her legs. She denies any history of DVT or PE. She is not very active per her son and has not noticed any increased dyspnea on exertion. Has no other complaints at this time. Was discharged home on steroids as well as 3 additional days of doxycycline which she has since completed. 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 Nonrheumatic aortic valve regurgitation Nonspecific chest pain Obesity Palpitations Severe sepsis Syncope and collapse Home Medications pantoprazole 40 mg tablet,delayed release 40 mg PO BID ACID REFLUX 01/14/15 [History Last Taken 07/07/20] bupropion HCl 150 mg 24 hr tablet, extended release 150 mg PO DAILY DEPRESSION 11/15/15 [History Last Taken 07/07/20] montelukast 10 mg tablet 10 mg PO QHS ALLERGIES 05/03/17 [History Last Taken 07/06/20] potassium chloride 20 mEq tablet,extended release(part/cryst) 20 meq PO DAILY SUPPLEMENT 05/03/17 [History Last Taken 07/06/20] aspirin 81 mg chewable tablet 162 mg PO DAILY HEART HEALTH 09/04/17 [History Last Taken 07/07/20] lorazepam 0.5 mg tablet 0.5 mg PO BID PRN ANXIETY 09/04/17 [History Last Taken 07/07/20] furosemide 40 mg tablet 40 mg PO DAILY WATER PILL ##0 12/06/17 [Rx Last Taken 07/06/20] cholecalciferol (vitamin D3) 1,250 mcg (50,000 unit) capsule 50,000 unit PO FR SUPPLEMENT 06/16/19 [History Last Taken 06/25/20] acetaminophen 650 mg tablet,extended release 650 mg PO Q6H PRN BACK PAIN 07/07/20 [History Last Taken 07/07/20] albuterol sulfate 2.5 mg/3 mL (0.083 %) solution for nebulization 2.5 mg (3 mL) inhalation Q4H PRN #25 vials 05/21/21 [Rx Last Taken Unknown] triamcinolone acetonide 55 mcg nasal spray aerosol (Nasacort) 1 spray intranasalDAILY #16.9 mL 06/10/21 [Rx Last Taken Unknown] albuterol sulfate 90 mcg/actuation aerosol inhaler 2 puff inhalation Q4H PRN shortness of breath or wheezing #8.5 grams 10/04/21 [Rx Last Taken Unknown] famotidine 20 mg tablet 20 mg PO DAILY PRN gerd 11/29/21 [History Last Taken Unknown] ferrous sulfate 325 mg (65 mg iron) tablet 325 mg PO BID Check with primary doctor 11/29/21 [History Last Taken Unknown] paroxetine HCl 20 mg tablet 10 mg PO BID Check with primary doctor 11/29/21 [History Last Taken Unknown] guaifenesin 1,200 mg tablet, extended release 12 hr 1,200 mg PO Q12H #60 tabs 04/04/22 [Rx Last Taken Unknown] fluticasone furoate 200 mcg-vilanterol 25 mcg/dose inhalation powder (Breo Ellipta) 1 inh inhalation DAILY #60 ea 08/07/22 [Rx Last Taken Unknown] pravastatin 80 mg tablet 80 mg PO QHS CHOLESTEROL LOWERING #90 tabs 09/25/22 [Rx Last Taken Unknown] tiotropium bromide 2.5 mcg/actuation mist for inhalation (Spiriva Respimat) 2 puff inhalation QDAY #3 ea 10/17/22 [Rx Last Taken Unknown] amiodarone 200 mg tablet 100 mg PO DAILY Check with primary doctor 10/20/22 [History Last Taken Unknown] ezetimibe 10 mg tablet (Zetia) 10 mg PO DAILY Check with primary doctor 10/20/22[History Last Taken Unknown] metoprolol succinate 50 mg tablet,extended release 24 hr See Rx Instructions .Route .COMPLEX Check with primary doctor 10/20/22 [History Last Taken Unknown] warfarin 2.5 mg tablet 2.5 mg PO DAILY Check with primary doctor 10/20/22 [History Last Taken Unknown] doxycycline monohydrate 100 mg capsule 100 mg PO BID 3 days #7 CAPSULES 10/23/22[Rx Last Taken Unknown] prednisone 20 mg tablet 40 mg PO DAILY 3 days #6 TABLETS 10/23/22 [Rx Last Taken Unknown] Allergy/AdvReac Type Severity Reaction Status Date / Time donepezil Allergy Severe shortness Verified 11/01/22 20:45 of breath risperidone Allergy Severe Confusion Verified 11/01/22 20:45 Sulfa (Sulfonamide Allergy Swelling Verified 11/01/22 20:45 Antibiotics) celecoxib [From Celebrex] AdvReac Severe Swelling Verified 11/01/22 20:45 dextromethorphan AdvReac Severe hallucinati Verified 11/01/22 20:45 [From Delsym] on adhesive AdvReac blisters Verified 11/01/22 20:45 codeine AdvReac Itching Verified 11/01/22 20:45 levofloxacin [From Levaquin] AdvReac pain in Verified 11/01/22 20:45 legs and swelling lisinopril AdvReac cough Verified 11/01/22 20:45 oxycodone [Oxycodone] AdvReac Itching Verified 11/01/22 20:45 oxycodone HCl [From Percocet] AdvReac Itching Verified 11/01/22 20:45 Penicillins AdvReac heart Verified 11/01/22 20:45 palpitations prochlorperazine edisylate AdvReac Low blood Verified 11/01/22 20:45 [From Compazine] pressure prochlorperazine maleate AdvReac Low blood Verified 11/01/22 20:45 [From Compazine] pressure tramadol HCl [From Ultram] AdvReac Itching Verified 11/01/22 20:45 Family History Mother Arthritis CAD (coronary artery disease) Father Arthritis High cholesterol CAD (coronary artery disease) Sister Diabetes High cholesterol Hypertension Brother Diabetes High cholesterol Hypertension Surgical History H/O aortic valve replacement History of back surgery History of foot surgery History of hysterectomy History of mechanical aortic valve replacement (~10/07/13) History of sinus surgery Social History household members: spouse Smoking Status: Never smoker alcohol intake: never substance use type: does not use caffeine: Yes Type: coffee what type of physical activity do you participate in: none seatbelt use: always do you feel safe at home: Yes ROS ROS ED Constitutional Constitutional ED: Denies chills or fever(s) Eyes Eyes: Denies change in vision ENT ENT ED: Denies sore throat Cardiovascular Cardiovascular: Reports as per HPI and chest pain Respiratory/Chest Respiratory/Chest: Reports cough; Denies dyspnea Gastrointestinal Gastrointestinal: Denies abdominal pain, nausea or vomiting Musculoskeletal Musculoskeletal: Denies arthralgias or myalgias Integumentary Denies rash Neurologic Neurologic: Denies weakness Psychiatric Psychiatric: Denies anxiety Hematologic/Lymphatic Hematologic/Lymphatic: Reports easy bleeding and easy bruising EXAM Physical Exam Const Vital Signs: 11/01/22 20:43 11/01/22 22:01 11/01/22 22:46 Temperature 97.9 F Temperature Source Temporal Pulse Rate 88 74 73 Respiratory Rate 18 16 13 Blood Pressure 133/67 H 121/55 H 116/66 Blood Pressure Mean 89 74 83 Pulse Ox 94 91 95 Oxygen Delivery Method Room Air Positive well nourished and well developed General Appearance ED: well developed and NAD HEENT Reports moist mucous membranes normocephalic and atraumatic Eyes PERRL and EOMs intact bilaterally Neck supple Neck Narrative: Positive JVD Chest Wall inspection of chest normal and palpation of chest normal Resp normal respiratory effort Resp Narrative: Coarse breath sounds, diminished at the bases, right worse than left. Scatteredrhonchi. Cardio regular rate, regular rhythm and no murmurs GI normal to inspection, nondistended, normoactive bowel sounds and soft to palpation Extremity normal to inspection General Extremety ED: Negative for edema General Extremity: Negative for edema Neuro Neuro Narrative: At baseline, no focal deficits appreciated Sensorium / Orientation: awake and alert Psych mental status grossly normal Skin no rashes or lesions noted and no wounds Heart Score History: Moderately Suspicious ECG: Nonspecific Repolarization Age: >/= 65 years Risk Factors: >/= 3 Risk Factors or History of CAD Troponin: >/=3 x Normal Limit Score: 8 MDM MDM MDM Narrative Medical decision making narrative: Patient evaluated for an episode of chest pressure. She currently has no symptoms. Protocol orders are placed. Patient is found to have a significantlyelevated high-sensitivity troponin at 389. On my evaluation patient currently has no chest pain. She is chronically anticoagulated on Coumadin and is given adose of aspirin in the emergency room. She does not have any active chest pain will defer nitro at this time. Chest x-ray shows cardiomegaly with no other acute changes. This is interpreted by myself as well as radiology. Patient's lab work is significant for leukocytosis of 20.0 however patient had aleukocytosis during her recent hospitalization and has been on steroids which confound the picture. In addition patient also had a leukocytosis during her recent hospitalization. Her creatinine is mildly elevated at 1.44 which is slightly above her baseline of 1. Patient does have some intermittent episodes of desaturation to 89% while in the bed. She is placed on 2 is of oxygen. Patient states she does wear oxygen when she sleeps. Question of this could be a type II NSTEMI associate with hypoxia. The case is discussed with cardiology on-call Dr. Galicia, who suggest that further decisions be made in the morning and to defer holding her Coumadin or starting heparin drip until he sees her in the morning. Case discussed with admitting physician, Dr. Olvera, patient is admitted to the PCU. Patient and son agreeable with plan of care. Discharge summary from recent hospitalization independently reviewed by myself. Patient was treated for hypoxia due to right multifocal pneumonia and has stablechronic heart failure with preserved ejection fraction. She was treated with aerosols, Solu-Medrol, Banken Zosyn in the ER and has a history of Pseudomonas on broad-spectrum antibiotics while in the hospital. She was then de-escalated to doxycycline and discharged home. History & Record Review Discussion w/independent historian: Family (First of concern of patient's dementia and inability to care for her at home. Thinks she might need placement.) Additional record(s) reviewed:: Prior inpatient record Lab Data Attestation: I reviewed the patient's lab results. Labs: Laboratory Results - last 24 hr 11/01/22 11/01/22 11/01/22 21:14 21:14 21:14 WBC 20.0 H RBC 4.77 Hgb 13.4 Hct 43.3 MCV 90.8 MCH 28.1 MCHC 30.9 L RDW Std Deviation 47.2 H RDW Coeff of Loki 14.2 Plt Count 384 MPV 10.2 Immature Gran % (Auto) 0.900 Neut % (Auto) 86.8 H Lymph % (Auto) 5.1 L [place] % (Auto) 6.5 Eos % (Auto) 0.4 Baso % (Auto) 0.3 Absolute Neuts (auto) 17.4 H Absolute Lymphs (auto) 1.02 Nucleated RBC % 0 PT INR Sodium 140 Potassium 3.6 Chloride 103 Carbon Dioxide 31.0 Anion Gap 6 BUN 21 H Creatinine 1.44 H Estim Creat Clear Calc 23.50 Est GFR (MDRD) Af Amer 45 L Est GFR (MDRD) Non-Af 37 L BUN/Creatinine Ratio 14.6 Glucose 96 Calcium 9.5 Total Bilirubin Direct Bilirubin AST ALT Alkaline Phosphatase Troponin I High Sens 389 H* B-Natriuretic Peptide 102.0 H Total Protein Albumin Globulin 11/01/22 11/01/22 21:14 21:14 WBC RBC Hgb Hct MCV MCH MCHC RDW Std Deviation RDW Coeff of Loki Plt Count MPV Immature Gran % (Auto) Neut % (Auto) Lymph % (Auto) [place] % (Auto) Eos % (Auto) Baso % (Auto) Absolute Neuts (auto) Absolute Lymphs (auto) Nucleated RBC % PT 25.8 H INR 2.4 Sodium Potassium Chloride Carbon Dioxide Anion Gap BUN Creatinine Estim Creat Clear Calc Est GFR (MDRD) Af Amer Est GFR (MDRD) Non-Af BUN/Creatinine Ratio Glucose Calcium Total Bilirubin 0.30 Direct Bilirubin 0.12 AST 16 ALT 15 Alkaline Phosphatase 88 Troponin I High Sens B-Natriuretic Peptide Total Protein 6.8 Albumin 2.9 L Globulin 3.9 Radiography Chest X-Ray - ED: 1 View, Read by ED Physician, Read by Radiologist, No Acute Disease and Cardiomegaly Diagnostic Testing: Clinical Impression(s) from Imaging Studies Chest X-Ray 11/01/22 21:11 IMPRESSION: Cardiomegaly without radiographic evidence of acute cardiopulmonary disease. Electronically Signed: Jean Mendiola MD at 21:50 EDT Reading Location ID and State: [facility] / [place] Tel , Service support , Rhythm Strip Rhythm Strip: Sinus Rhythm Rate: 82 Ectopy: None EKG Initial EKG: Attestation: I personally reviewed and interpreted this EKG as follows: Comments: Sinus rhythm at a rate of 82 bpm Normal axis Normal intervals Nonspecific T wave inversion in aVL, V1 and V2 Compared to prior EKG on 10/20/2022, T wave inversion in aVL is new Discharge Plan Triage Chief Complaint: Chest Pain ED Provider: Velma Leavitt Dx/Rx/DC Orders Clinical Impression: NSTEMI, initial episode of care, Chest pain, Leukocytosis, ROXANA (acute kidney injury) Primary Care Provider: Kolby Kim Disposition Disposition: Acute Care Hospital [facility] Discharge Date/Time: 11/02/22 00:29 What to do if you have Problems For any increased pain, shortness of breath, bleeding, nausea or vomiting, chestpain, or any unexpected problems, contact your Primary Care Provider. Call [facility] ([phone]) or report to the closest Emergency Room. Call 911 if necessary. 11/02/22 003 <Electronically signed by Velma Leavitt DO> Cosigner Signature (if applicable): CC: Dr. Kolby Kim MD ~ Signed [facility] Work Phone: [phone] History and physical note Author Dr. Olvera [facility] November 01, 2022 11:22pm Note Date/Time November 01, 2022 10:3 8pm [facility] Medical Records Department [address] [place] [id number] H&P Exam - Hospitalist 11/01/222234 MR#: [id number] Acct: [id number] Name: ELZA CHU Rep #:[id number] : 1945 76 From: Ivis Olvera DO PCP: Dr. Kolby Kim MD Status:REG E R Location: ED HPI - General General Date of Admission: 11/01/22 Date of Service: 11/01/22 Chief Complaint: Chest pain HPI Narrative ELZA CHU, is a 76 F who presented to the emergency department at [facility] on 11/01/2022 after experiencing chest pain earlier today. Patient states she was walking down the hallway at which time she experienced chest pressure on the left side of her chest that radiated to her left shoulder. She stated she rested and her symptoms went away and they have not returned. She has never had this previously and at the time of my evaluation her symptoms had completely resolved. She did not have any associated shortness of breath, nausea, or vomiting. Pain did not radiate anywhere else other than to her left shoulder. Her cardiac history does include paroxysmal atrial fibrillation, mildCAD, mechanical aortic valve, chronic diastolic heart failure, hyperlipidemia, and hypertension. She follows as an outpatient with cardiology and was last seen by Dr. Mckay on 05/22/2022. Vital signs on presentation showed a temperature of 97.9, heart rate 88, blood pressure 133/67, respiratory rate was 18 and oxygen saturations were 94% on roomair. CBC showed a leukocytosis with a white count of 20,000 and a left shift with an 86.8% neutrophilia. The patient has been on steroids at home for recentadmission related to pneumonia and asthma. Her INR is 2.4. Her chemistry panelshows normal electrolytes however BUN and serum creatinine are elevated from baseline at 21 and 1.44 respectively. Baseline serum creatinine appears to be between 0.9 and 1. Her liver functions are normal. Her troponin was elevated at 389. This was her initial troponin on presentation. Her BNP was slightly elevated at 102. Chest x-ray is unremarkable. EKG shows poor R wave progression, normal intervals, and no ST-T wave changes concerning for acute ischemia. 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 Nonrheumatic aortic valve regurgitation Nonspecific chest pain Obesity Palpitations Severe sepsis Syncope and collapse Home Medications pantoprazole 40 mg tablet,delayed release 40 mg PO BID ACID REFLUX 01/14/15 [History Last Taken 07/07/20] bupropion HCl 150 mg 24 hr tablet, extended release 150 mg PO DAILY DEPRESSION 11/15/15 [History Last Taken 07/07/20] montelukast 10 mg tablet 10 mg PO QHS ALLERGIES 05/03/17 [History Last Taken 07/06/20] potassium chloride 20 mEq tablet,extended release(part/cryst) 20 meq PO DAILY SUPPLEMENT 05/03/17 [History Last Taken 07/06/20] aspirin 81 mg chewable tablet 162 mg PO DAILY HEART HEALTH 09/04/17 [History Last Taken 07/07/20] lorazepam 0.5 mg tablet 0.5 mg PO BID PRN ANXIETY 09/04/17 [History Last Taken 07/07/20] furosemide 40 mg tablet 40 mg PO DAILY WATER PILL ##0 12/06/17 [Rx Last Taken 07/06/20] cholecalciferol (vitamin D3) 1,250 mcg (50,000 unit) capsule 50,000 unit PO FR SUPPLEMENT 06/16/19 [History Last Taken 06/25/20] acetaminophen 650 mg tablet,extended release 650 mg PO Q6H PRN BACK PAIN 07/07/20 [History Last Taken 07/07/20] albuterol sulfate 2.5 mg/3 mL (0.083 %) solution for nebulization 2.5 mg (3 mL) inhalation Q4H PRN #25 vials 05/21/21 [Rx Last Taken Unknown] triamcinolone acetonide 55 mcg nasal spray aerosol (Nasacort) 1 spray intranasalDAILY #16.9 mL 06/10/21 [Rx Last Taken Unknown] albuterol sulfate 90 mcg/actuation aerosol inhaler 2 puff inhalation Q4H PRN shortness of breath or wheezing #8.5 grams 10/04/21 [Rx Last Taken Unknown] famotidine 20 mg tablet 20 mg PO DAILY PRN gerd 11/29/21 [History Last Taken Unknown] ferrous sulfate 325 mg (65 mg iron) tablet 325 mg PO BID Check with primary doctor 11/29/21 [History Last Taken Unknown] paroxetine HCl 20 mg tablet 10 mg PO BID Check with primary doctor 11/29/21 [History Last Taken Unknown] guaifenesin 1,200 mg tablet, extended release 12 hr 1,200 mg PO Q12H #60 tabs 04/04/22 [Rx Last Taken Unknown] fluticasone furoate 200 mcg-vilanterol 25 mcg/dose inhalation powder (Breo Ellipta) 1 inh inhalation DAILY #60 ea 08/07/22 [Rx Last Taken Unknown] pravastatin 80 mg tablet 80 mg PO QHS CHOLESTEROL LOWERING #90 tabs 09/25/22 [Rx Last Taken Unknown] tiotropium bromide 2.5 mcg/actuation mist for inhalation (Spiriva Respimat) 2 puff inhalation QDAY #3 ea 10/17/22 [Rx Last Taken Unknown] amiodarone 200 mg tablet 100 mg PO DAILY Check with primary doctor 10/20/22 [History Last Taken Unknown] ezetimibe 10 mg tablet (Zetia) 10 mg PO DAILY Check with primary doctor 10/20/22[History Last Taken Unknown] metoprolol succinate 50 mg tablet,extended release 24 hr See Rx Instructions .Route .COMPLEX Check with primary doctor 10/20/22 [History Last Taken Unknown] warfarin 2.5 mg tablet 2.5 mg PO DAILY Check with primary doctor 10/20/22 [History Last Taken Unknown] doxycycline monohydrate 100 mg capsule 100 mg PO BID 3 days #7 CAPSULES 10/23/22[Rx Last Taken Unknown] prednisone 20 mg tablet 40 mg PO DAILY 3 days #6 TABLETS 10/23/22 [Rx Last Taken Unknown] Allergy/AdvReac Type Severity Reaction Status Date / Time donepezil Allergy Severe shortness Verified 11/01/22 20:45 of breath risperidone Allergy Severe Confusion Verified 11/01/22 20:45 Sulfa (Sulfonamide Allergy Swelling Verified 11/01/22 20:45 Antibiotics) celecoxib [From Celebrex] AdvReac Severe Swelling Verified 11/01/22 20:45 dextromethorphan AdvReac Severe hallucinati Verified 11/01/22 20:45 [From Delsym] on adhesive AdvReac blisters Verified 11/01/22 20:45 codeine AdvReac Itching Verified 11/01/22 20:45 levofloxacin [From Levaquin] AdvReac pain in Verified 11/01/22 20:45 legs and swelling lisinopril AdvReac cough Verified 11/01/22 20:45 oxycodone [Oxycodone] AdvReac Itching Verified 11/01/22 20:45 oxycodone HCl [From Percocet] AdvReac Itching Verified 11/01/22 20:45 Penicillins AdvReac heart Verified 11/01/22 20:45 palpitations prochlorperazine edisylate AdvReac Low blood Verified 11/01/22 20:45 [From Compazine] pressure prochlorperazine maleate AdvReac Low blood Verified 11/01/22 20:45 [From Compazine] pressure tramadol HCl [From Ultram] AdvReac Itching Verified 11/01/22 20:45 Family History Mother Arthritis CAD (coronary artery disease) Father Arthritis High cholesterol CAD (coronary artery disease) Sister Diabetes High cholesterol Hypertension Brother Diabetes High cholesterol Hypertension Surgical History H/O aortic valve replacement History of back surgery History of foot surgery History of hysterectomy History of mechanical aortic valve replacement (~10/07/13) History of sinus surgery Social History household members: spouse Smoking Status: Never smoker alcohol intake: never substance use type: does not use caffeine: Yes Type: coffee what type of physical activity do you participate in: none seatbelt use: always do you feel safe at home: Yes ROS Constitutional Constitutional: Reports fatigue; Denies anorexia, change in weight, chills, fever(s), malaise, night sweats, weakness or other Eyes Eyes: Denies blurry vision, change in eye color, change in vision, discharge from eye(s), double vision, erythema, eye pain, loss of vision or other ENT HEENT: Denies abnormal hearing, dysphagia, ear pain, epistaxis, headache(s), hearing loss, nasal congestion, nasal discharge, post nasal drip, sinus pressure, sore throat or other Cardiovascular Cardiovascular: Reports chest pain and dyspnea on exertion; Denies claudication,edema, lightheadedness, orthopnea, palpitations, paroxysmal nocturnal dyspnea, rapid heart rate, syncope or other Respiratory/Chest Respiratory/Chest: Reports wheezing; Denies cough, dyspnea, excessive phlegm production, hemoptysis, productive cough, shortness of breath at rest, shortnessof breath with exertion or other Gastrointestinal Gastrointestinal: Denies abdominal pain, coffee ground emesis, constipation, diarrhea, dyspepsia, hematemesis, hematochezia, loose stools, melena, nausea, vomiting or other Genitourinary Genitourinary: Denies burning urination, difficulty urinating, dysuria, hematuria, nocturia, urinary frequency, urinary hesitancy, urinary incontinence,urinary urgency or other Musculoskeletal Musculoskeletal: Reports back pain; Denies arthralgias, joint pain, joint stiffness, joint swelling, myalgias, neck pain or other Neurologic Neurologic: Denies abnormal gait, abnormal speech, confusion, disequilibrium, dizziness, focal weakness, headache(s), numbness, paresthesias, seizure-like activity, seizures, syncope, tingling, tremor(s) or other Psychiatric Psychiatric: Reports anxiety and depression; Denies homicidal ideation, suicidalideation or other Endocrine Endocrinology: Denies change in body appearance, cold intolerance, excessive sweating, heat intolerance, polydipsia, polyuria or other Hematologic/Lymphatic Hematologic/Lymphatic: Denies anemia, easy bleeding, easy bruising, lymphadenopathy or other Allergic/Immunologic Allergic/Immunologic: Denies rhinitis, hives, eczemia, asthma or other Vital Signs Vital Signs Vital Signs: 11/01/22 20:43 Temperature 97.9 F Temperature Source Temporal Pulse Rate 88 Respiratory Rate 18 Blood Pressure 133/67 H Blood Pressure Mean 89 Pulse Ox 94 Oxygen Delivery Method Room Air Weight Weight: 56.4 kg Body Mass Index (BMI) 24.3 Physical Exam Const alert, oriented x3, no apparent distress, average body habitus and well nourished Constitutional Narrative: Elderly white female sitting up in bed, appears comfortable, nontoxic, currentlyon 2 L supplemental oxygen General Appearance: cooperative HEENT normocephalic, head/scalp atraumatic, hearing grossly normal bilaterally and moist oral mucous membranes HEENT Narrative: Mallampati is 2, no thrush, dentures in place Eyes PERRL, EOMs intact bilaterally and conjunctivae normal Eyes Narrative: No scleral icterus Neck no lymphadenopathy, supple, no JVD and no carotid bruits Neck Narrative: Trachea midline, no thyroid enlargement Resp normal respiratory effort, no retractions, no use of accessory muscles and No clear to auscultation bilaterally Resp Narrative: Diffuse scattered wheezing and expiratory end inspiratory but no signs of respiratory distress Auscultation: wheezes; Negative for rales or rhonchi Cardio regular rate, regular rhythm, S1 normal heart sound, S2 normal heart sound, no murmurs, no rub, no gallops and no JVD; Negative for no clicks Cardio Narrative: Positive click noted most notably at left upper sternal border GI normal to inspection, nondistended, normoactive bowel sounds, soft to palpation and non-tender Extremity no clubbing, cyanosis or edema Extremity Narrative: Pedal pulses are 2+, cap refill is 2+ Skin No no rashes or lesions noted, no wounds, skin turgor normal, no jaundice, no petechiae and no mottling Skin Narrative: Scattered ecchymosis Neuro oriented x3, CN's II-XII intact bilaterally, moves all extremities and no focal motor deficits Speech: speech normal Psych affect normal Psych Narrative: Slightly anxious, eye contact is good, interaction is normal Results Lab / Micro Data Result Diagrams: 11/01/22 21:14 11/01/22 21:14 Labs: Laboratory Results - last 24 hr 11/01/22 21:14: WBC 20.0 H, RBC 4.77, Hgb 13.4, Hct 43.3, MCV 90.8, MCH 28.1, MCHC 30.9 L, RDW Std Deviation 47.2 H, RDW Coeff of Loki 14.2, Plt Count 384, MPV10.2, Immature Gran % (Auto) 0.900, Neut % (Auto) 86.8 H, Lymph % (Auto) 5.1 L, [place] % (Auto) 6.5, Eos % (Auto) 0.4, Baso % (Auto) 0.3, Absolute Neuts (auto) 17.4 H, Absolute Lymphs (auto) 1.02, Nucleated RBC % 0 11/01/22 21:14: Sodium 140, Potassium 3.6, Chloride 103, Carbon Dioxide 31.0, Anion Gap 6, BUN 21 H, Creatinine 1.44 H, Estim Creat Clear Calc 23.50, Est GFR (MDRD) Af Amer 45 L, Est GFR (MDRD) Non-Af 37 L, BUN/Creatinine Ratio 14.6, Glucose 96, Calcium 9.5, Troponin I High Sens 389 H* Radiology Impression Chest X-Ray 11/01/22 21:11 IMPRESSION: Cardiomegaly without radiographic evidence of acute cardiopulmonary disease. Electronically Signed: Jean Mendiola MD at 21:50 EDT , Assessment & Plan Assessment/Plan (1) NSTEMI, initial episode of care: (2) Chest pain: (3) Leukocytosis: (4) ROXANA (acute kidney injury): PLAN: Plan Chest pain/NSTEMI -Initial troponin was elevated at 389 -EKG demonstrated no ST-T wave changes -Chest pain is currently resolved -Patient is on Coumadin at baseline but likely will hold--> trying to touch basewith cardiology for their recommendations with anticoagulation as I suspect patient will need cardiac catheterization -Cycle cardiac enzymes -Check echocardiogram -Continue home aspirin/metoprolol/statin/Zetia--> switch pravastatin 80 mg to Lipitor 80 mg -Patient with allergy to ARIADNA inhibitors--> could consider ARB as ARIADNA allergy was cough -Patient had recent lipid profile performed on 10/21/2022 and had a total cholesterol of 163/LDL 94/VLDL of 16/HDL of 53 -Change in statin as above -Cardiology consult ROXANA on CKD stage II -Baseline serum creatinine is 0.91 -Current serum creatinine 1.44 -Hold Lasix -Gentle hydration with LR at 50 cc an hour x1 L -Repeat BMP in a.m. Leukocytosis -Patient with recent admission for pneumonia and was placed on steroids -Suspect related to this from demargination and reactive from NSTEMI -Repeat CBC in a.m. Asthma/bronchiectasis -Continue home inhalers -As needed albuterol -Recommend continued outpatient follow-up with pulmonary medicine PAF -Currently in normal sinus rhythm -Continue beta-milka -Continue amiodarone -We will hold Coumadin for now until we hear from cardiology on how they would like us to proceed -Anticipate initiation of heparin drip CAD/HTN/HPL -As above History of mechanical aortic valve replacement -EDX-Kchspcuqor-Fduqef, 2003, Redo AVR 10/10 (#21 On-X mechanical valve) -Goal INR is between 2 and 3 -INR is currently pending -On Coumadin at baseline -We will likely need to hold Coumadin as patient is expected to require cardiac catheterization Vitamin D deficiency -Continue ergocalciferol every Sunday GERD -Continue famotidine -Continue Protonix Lewy body dementia -Work-up pending at [facility] Main rod[place] Depression/anxiety -Continue as needed Ativan -Continue home paroxetine -Continue home Wellbutrin DVT prophylaxis -Patient is fully anticoagulated CODE STATUS -DNR CCA with no intubation Charges/Coding Visit Charges Inpatient E&M: 53337 Init Hosp L3 11/01/22 2322 <Electronically signed by Ivis Olvera DO> Cosigner Signature (if applicable): CC: Dr. Ivis Olvera DO; Dr. Kolby Kim MD~ Signed [facility] Work Phone: [phone] 219-916304-05-2023 Miscellaneous Notes* Telephone Encounter - Gilberto Virk MD - 11/01/2022 3:57 PM EDT Pt is advised that she should proceed with her second MBB's if she had greater than 50% relief evenif for only short duration of time (pt reports less than 1 hour). Patient will have a full follow-up evaluation on 11/07/2022 where the results of her MBB's can be discussed further. * Telephone Encounter - MAUDE Myers - 11/01/2022 12:28 PM EDT Spoke to patient she stated the MBB she had on 10/27 only provided less then 45 min of relief. Patient stated she is not having pain in her sciatic area. Patient is not sure if she should still get the 2nd MBB on 11/14. Please advise Chloe Patrick Mud Mixer Helper to Dr. Virk, Kait Isbell PA-C, Workers [employer] [facility] P: [id number] / F: [phone] / documented in this encounterWhite Hospital04-03-2023 History of Present illness Narrative* Stephanie Glez RDMS - 10/30/2022 2:30 PM EDT Radiology Service Progress Note PATIENT NAME: Elza Chu DATE OF SERVICE: October 30, 2022 TIME: 3:05 PM PATIENT IDENTITY VERIFICATION COMPLETED USING TWO (2) IDENTIFIERS: Name and Date of confirmedby patient verbally. FALL SCREENING: Has the patient had 2 falls in the last year or 1 fall with injury or currently using an Ambulatory Assistive Device (Walker, Cane, Wheelchair, Crutches, etc.)? Yes, Patient High Riskfor Falls What interventions were put in place to prevent falls during this visit? Instructed Patient to Callfor Help if Needed, Offered Assistance with Transfers/Clothing, and Increased Observations by Caregivers PATIENT GENDER DATA: Female. status: : No status: NO. PATIENT RELEVANT IMPLANT DATA REVIEWED: Not Applicable RADIOLOGY DEPARTMENT: Ultrasound PERIPHERAL IV DATA: Not applicable SIGNED BY: Stephanie Glez RDMS October 30, 2022 3:05 PM documented in this encounterWhite Hospital04-03-2023 Miscellaneous Notes* Telephone Encounter - Antonia Desir MA - 10/30/2022 1:19 PM EDT I called the patient to follow up after procedure. She stated today has been her worst day with pain since the procedure but will wait til tomorrow to see if she is feeling better. She has been taking tylenol and heating. Antonia Desir MA documented in this encounterWhite Hospital03-31-2023 NoteHNO ID: [id number] Author: Antonia Desir MA Service: ? Author Type: Robotics Mechanic Type: Progress Notes Filed: 10/27/2022 1:20 PM Note Text: Review of Systems Constitutional: Negative for activity change, appetite change, chills, fever and unexpected weight change. Genitourinary: Negative for difficulty urinating. Musculoskeletal: Positive for back pain and neck pain. Negative for arthralgias, gait problem, joint swelling, myalgias and neck stiffness. Neurological: Positive for headaches. Negative for weakness and numbness. Psychiatric/Behavioral: Negative for dysphoric mood, sleep disturbance and suicidal ideas. The patient is not nervous/anxious.[facility]03-31-2023 NoteHNO ID: [id number] Author: Gilberto Virk MD Service: ? Author Type: Physician Type: Progress Notes Filed: 10/27/2022 1:20 PM Note Text: [facility] Date: 10/22/2022 Patient name: Elza Chu Physician performing procedure: Gilberto Virk MD, PhD Procedure: Lumbar Medial Branch Blocks under fluoroscopic guidance Levels Treated: Bilateral L4/5 and L5/S1 Facet Joint Nerves, aka Medial Branch(es) Approach: Bilateral Oblique Injectate: A total of 3cc of 0.5% Bupivacaine (0.5 ml per site) Improvement after today's procedure: as per nursing report Diagnosis: (M47.816) Lumbar spondylosis (primary encounter diagnosis) (M47.816) Facet arthropathy, lumbar Comments: None HPI: Elza Chu is an 76 year old FEMALE who presents today for elective, diagnostic medial branch blocks. Elza Chu is a 76 year old year-old female with Atrial fibrillation, s/p AVR x2 on Coumadin (INR goal 2.5-3.5), compression fracture (T11, T12, L1 and L3 compression fracture), HL, HTN, asthma, migraines, 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 Patients history, physical exam and imaging are concerning for multifactorial pain including components of: lumbar neuroforaminal stenosis (on imaging, with multilevel moderate to severe NF stenosis), lumbar facet arthropathy (on imaging, with multilevel facet arthropathy seen on CT L-spine) iso of known multiple compression fractures at T11, T12, L1 and and L3 and significant thoracolumbar scoliosis. She further has c/f lumbar spinal stenosis (CT L-spine notable for L2-3 and L4-5 severe central canal stenosis, as well as L1-2 moderate, L3-4 moderate and L5-S1 central canal stenosis Patient reports largely lower lumbar spine pain over the lower lumbar facets as well the lower lumbar spine, consistent with lumbar facet arthropathy, lumbar spinal stenosis (up to severe as noted above on CT L-spine). However concern remains for pain over the multiple compression fractures (severe at L1, also at T11, T12, L1 and L3). Of note, pt has severe central canal stenosis, however patient deferred caudal LARISSA despite cardiac clearance and allowing her to bridge with Lovenox. If patient does not have benefit from L4/5 and L5/S1 MBB's, can consider L2/3 and L3/4 MBB's around the L3 compression site. Patient otherwise denies fevers, chills, weakness, saddle anesthesia, bowel or bladder incontinence or recent antibiotic or anticoagulant use. Review of Systems: Pertinent Positives: MSK: pain in the region being treated Neuro: No weakness or numbness in the region being treated Skin: Negative (No itching) Eyes: Negative (No blurred or double vision) Respiratory: Negative (No Cough, Gcbsidjbx-me-uiwwli, Dyspnea on exertion, wheezing) Cardiovascular: Negative (No Chest Pain, Tightness, Pressure, Palpitations) Gastrointestinal: Negative (No Abdominal pain, Nausea, Vomiting, Constipation, Diarrhea) Genitourinary: Negative (No dysuria) Hematologic: Negative (No bleeding, bruising) OB: is Denied or Not Applicable Endocrine: Negative (No hot/cold intolerance) Psychiatric: Negative (No depression, anxiety or suicidal ideation) ALLERGIES Allergen Reactions Adhesive Rash Blistering at site of application. Dextromethorphan Other: See Comments, Mental Status Change Risperidone Other: See Comments Sulfa (Sulfonamide * Other: See Comments Renal dysfunction. Childhood reaction. Generalized swelling Celebrex [Celecoxib] Other: See Comments Migraine headache. Aricept [Donepezil] Myalgia muscle pain and difficulty walking Compazine [Prochlor* Other: See Comments low BP Crestor [Rosuvastat* GI Upset Gabapentin Intolerance Confusion, when coupled with norco Lipitor [Atorvastat* Myalgia Lisinopril Cough No Latex Allergy [O* Oxycodone Itching Penicillins Other: See Comments Heart palpitations. No rash or itch. Can take cephalosporins Prozac [Fluoxetine * Other: See Comments hallucinating Ultram [Tramadol Hc* Itching Codeine Itching Current Outpatient Medications on File Prior to Visit Medication Sig iv contrast (will be provided with radiology test) CT Chest W -Inject, intravenously, once for 1 dose.No IV access, insert saline lock prior to the beginning of sedation, infusion, injection of imaging exam. Discontinue saline lock post exam. If Pt. has a central line or IVAD, may access for administration according to line specific nursing protocol. Once exam is complete flush line and de-access according to line specific nursing protocol in the CT contrast administration guidelines link. ergocalciferol 50,000 unit capsule (VITAMIN D2, DRISDOL) Take 1 capsule by mouth every o (more content not included)...[facility] 10-26-2022 Miscellaneous Notes* Telephone Encounter - Bobby Srinivasan RN - 10/26/2022 4:35 PM EDT Pt called and is notified of providers message and instructions. Pt voices understanding. Bobby Srinivasan RN * Telephone Encounter - Kolby Kim MD - 10/26/2022 4:29 PM EDT Same. Recheck one week * Telephone Encounter - Keily Mcpherson Ma - 10/26/2022 4:18 PM EDT Last INR: INR 2.7 10/26/2022 Current dose of coumadin is: 2.5 mg daily. Additional Clinical Information or narrative: no documented in this encounterWhite Hospital03-30-2023 History of Present illness Narrative* Kolby Kim MD - 10/26/2022 2:08 PM EDT Patient presents with: Transition Of Care HPI: Patient presents today for office visit for TCM. TCM call done on 10/24. Admitted into [facility] 10/20/22 Discharged 10/23/22 Diagnosis: Pneumonia Treated with Vanc+Zosyn. Sent home with Prednisone and Doxycycline. Has one more day of abx. At night on 3L O2 unless otherwise needed Denies chest pain Some shortness of breath Last night had some swelling to B/L ankles. Hospital did cut water pill in half for 3 days. Supposed to resume regular dose tomorrow. Ct showed ? Large right cyst. Has previous cts mentioning cysts but no size given. Has some pain in back but has known ddd. Admitted with a three day history of chest discomfort and shortness of breath. CTA showed multifocal pneumonia. Saw ID due to her previous hx of pseudomonas but did not feel that was an issue. She had her diuretics cut due to renal function which needs followed. She also requires her inr to be checked. MEDICATIONS: Current Outpatient Medications Medication Sig iv contrast (will be provided with radiology test) CT Chest W -Inject, intravenously, once for 1 dose.No IV access, insert saline lock prior to the beginning of sedation, infusion, injection of imaging exam. Discontinue saline lock post exam. If Pt. has a central line or IVAD, may access for administration according to line specific nursing protocol. Once exam is complete flush line and de-accessaccording to line specific nursing protocol in the CT contrast administration guidelines link. ergocalciferol 50,000 unit capsule (VITAMIN D2, DRISDOL) Take 1 capsule by mouth every other week. baclofen (LIORESAL) 10 mg tablet Take 1 tablet by mouth three times daily as needed (muscle spasms). montelukast (SINGULAIR) 10 mg tablet Take 1 tablet by mouth daily at bedtime. diclofenac (VOLTAREN) 1 % topical gel Apply 4 g to affected area four times daily. pregabalin (LYRICA) 25 mg capsule Take 1 capsule by mouth daily at bedtime for 30 days. BREO ELLIPTA 200-25 mcg/dose inhaler INHALE 1 PUFF BY MOUTH ONCE DAILY PARoxetine (PAXIL) 20 mg tablet Take 1 tablet by mouth once daily. LORazepam (ATIVAN) 1 mg tablet Take 0.5 tablets by mouth twice daily for 90 days. ferrous sulfate 325 mg (65 mg iron) tablet Take 1 tablet by mouth twice daily with meals. SPIRIVA RESPIMAT 2.5 mcg/actuation inhaler INHALE 2 SPRAYS BY MOUTH ONCE DAILY AT APPROXIMATELY THESAME TIME EACH DAY furosemide (LASIX) 40 mg tablet Take 1 tablet by mouth once daily. buPROPion XL (WELLBUTRIN XL) 150 mg 24 hr tablet Take 1 tablet by mouth once daily. warfarin (COUMADIN) 3 mg tablet 2.5 mg MW and 4.5 mg all other days or as directed (Patient taking differently: 4.5 mg Tues/Thurs and 2.5 mg all other days) warfarin (COUMADIN) 2.5 mg tablet 2.5 mg MWF and 4.5 mg all other days or as directed (Patient taking differently: 4.5 mg Tues/Thurs and 2.5 mg all other days) pantoprazole DR (PROTONIX) 40 mg tablet Take 1 tablet by mouth twice daily. potassium chloride ER (K-DUR, KLOR-CON) 20 mEq tablet Take 1 tablet by mouth once daily. albuterol (PROVENTIL) 2.5 mg /3 mL (0.083 %) nebulizer solution Use 3 mL via nebulizer every 6 hours as needed for wheezing/shortness of breath. DX: J45.40 Hx of moderate persistent Asthma warfarin (COUMADIN) 2.5 mg tablet 2.5 mg Sun/Sun, 4.5 mg all other days or as directed amiodarone (PACERONE) 200 mg tablet Take 100 mg by mouth once daily. albuterol HFA (PROAIR HFA) 90 mcg/actuation inhaler Inhale 2 Puffs as instructed every 4 hours as needed. budesonide-formoterol (SYMBICORT) 160-4.5 mcg/actuation inhaler Inhale 2 Puffs as instructed twice daily. acetaminophen (TYLENOL EXTRA STRENGTH) 500 mg tablet Take 1 tablet by mouth every 4 hours as neededfor Pain. RANGE FREQ? Nebulizer NEBULIZER FOR HOME USE and necessary supplies. DX: Hypoxemia, Pneumonia and Hemoptisis triamcinolone acetonide (NASACORT AQ) 55 mcg nasal inhaler Use 1 [place] in the nose once daily. pravastatin (PRAVACHOL) 80 mg tablet TAKE 1 TABLET BY MOUTH ONCE DAILY aspirin 81 mg chewable tablet Take 2 tablets by mouth once daily. metoprolol succinate XL, long acting, 50 mg 24 hr tablet Take 1 tablet by mouth once daily. ezetimibe(ZETIA 10 MG TAB) Take one(1) tablet daily. Current Facility-Administered Medications Medication Dose Route Frequency bupivacaine 7.5 mg injection (SENSORCAINE) 3 mL OTHER As Directed ALLERGIES: ALLERGIES Allergen Reactions Adhesive Rash Blistering at site of application. Dextromethorphan Other: See Comments, Mental Status Change Risperidone Other: See Comments Sulfa (Sulfonamide * Other: See Comments Renal dysfunction. Childhood reaction. Generalized swelling Celebrex [Celecoxib] Other: See Comments Migraine headache. Aricept [Donepezil] Myalgia muscle pain and difficulty walking Compazine [Prochlor* Other: See Comments low BP Crestor [Rosuvastat* GI Upset Gabapentin Intolerance Confusion, when coupled with norco Lipitor [Atorvastat* Myalgia Lisinopril Cough No Latex Allergy [O* Oxycodone Itching Penicillins Other: See Comments Heart palpitations. No rash or itch. Can take cephalosporins Prozac [Fluoxetine * Other: See Comments hallucinating Ultram [Tramadol Hc* Itching Codeine Itching PAST MEDICAL HISTORY Diagnosis Date Adjustment disorder with depressed mood Aortic valve disorder Dr. Mckay Carotid stenosis Compression deformity of vertebra Congestive heart failure (HCC) COPD (chronic obstructive pulmonary disease) (HCC) 01/03/2013 Esophageal reflux Normal EGD 12/2012 H/O aortic valve replacement INR should be 2.5 to 3.5 High blood pressure Hyperlipidemia Impaired glucose tolerance Intrinsic asthma 06/[address] done per Dr. Mckay Migraine Myalgia and myositis, unspecified Other forms of migraine Parkinsonism (HCC) Thyroid nodule Unspecified essential hypertension PAST SURGICAL HISTORY Procedure Laterality Date ANTERIOR COLPORRAPHY RPR CYSTOCELE W/CYSTO 2001 w/ uterosacral suspension CARDIOVERSION [facility]- Spring 2019 CLOSURE SEMILUNAR VALVE AORTIC/PULM SUTURE/PATCH 2003 had aortic valve replacement w/ bovine valve COLONOSCOPY FLX DX W/COLLJ SPEC WHEN PFRMD 01/15/2013 Colonoscopy COLSC FLX W/RMVL OF TUMOR POLYP LESION SNARE TQ 05/07/2017 Colonoscopy - cecal inflammatory polyps. Repeat in 5 yrs DISPLACEMENT THERAPY PROETZ TYPE x3 ESOPHAGOGASTRODUODENOSCOPY TRANSORAL DIAGNOSTIC 01/15/2013 EGD ESOPHAGOGASTRODUODENOSCOPY TRANSORAL DIAGNOSTIC 05/07/2017 EGD FOOT RIGHT OP SURGERY 05/05/2009 HEMORRHOIDECTOMY XTRNL 2/> COLUMN/GROUP LAPS VAGINAL HYSTERECTOMY UTERUS 250 GM/< usvvs, enterocele repair,apr,lsc pvdr,cysto,spt LOW BACK DISK SURGERY 06/2011 OOPHORECTOMY PARTIAL/TOTAL UNI/BI PAST SURGICAL HISTORY OF 04/2012 Thyroid eihqwz-xlwfer-jvjowltj PAST SURGICAL HISTORY OF aug and september 2011 cataract removal PAST SURGICAL HISTORY OF 2013 aortic valve with On-X valve PERCUTANEOUS AORTIC VALVE REPLACEMENT 09/2013 POSTERIOR COLPORRHAPHY, REPAIR RECTOCELE 2001 SINUS SURGERY PROC UNLISTED [address] Styles ([place]), [address] Wood, 1 in [place] TONSILLECTOMY PRIMARY/SECONDARY <AGE 12 TOTAL ABDOMINAL HYSTERECT W/WO RMVL TUBE OVARY age 31 FAMILY HISTORY Problem Relation Age of Onset Heart Mother Heart Father Diabetes Brother Hypertension Brother Lipids Brother Lipids Daughter other (Depression) Daughter GI Son Lipids Son Diabetes Sister Lipids Sister Social History Tobacco Use Smoking status: Never Smokeless tobacco: Never Tobacco comments: Father smoked in childhood home. Spouse non-smoker. Vaping Use Vaping Use: Never used Substance Use Topics Alcohol use: No Drug use: No Reviewed current medications, allergies, past medical history, surgical history, family history andsocial history today. REVIEW OF SYSTEMS All other reviewed and negative other than HPI. HEALTH MAINTENANCE: Reviewed health maintenance issues today and recommended the following in detail. SHINGRIX VACCINE(1 of 2) Never done DTAP,TDAP,TD(1 - Tdap) due on 06/30/2011 ADVANCE DIRECTIVE DISCUSSION due on 07/30/2022 VITALS: BP 156/88 Pulse (!) 50 Ht 152.4 cm (5') Wt 58.5 kg (129 lb) SpO2 (!) 83% BMI 25.19 kg/m Oxygen on RA. Suggested she continue to wear her oxygen at home. Last 4 Encounter Wt Readings: Date: Wt: 09/29/2022 58.9 kg (129 lb 12.8 oz) 07/27/2022 59.1 kg (130 lb 6.4 oz) 07/06/2022 59.4 kg (131 lb) 06/02/2022 61.7 kg (136 lb) PHYSICAL EXAMINATION: General appearance: Well appearing, alert, in no acute distress, well-hydrated, well nourished.breathing comfortably. No accessory muscle use. Skin: Skin color, texture, turgor normal, no suspicious rashes or lesions Head: Normocephalic, no masses, lesions, tenderness or abnormalities Lungs: Lungs clear to auscultation. No wheezing, rhonchi, rales Heart: RRR, aubible click Abdomen: Normal abdominal exam, Abdomen soft, non-tender. Bowel sounds normal. No masses, organomegaly Extremities: No deformities, edema, skin discoloration, clubbing or cyanosis. Good capillary refill. ASSESSMENT/PLAN: 1. Bacterial pneumonia - ICD9: 482.9, ICD10: J15.9 (primary diagnosis) - keep appt with pulmonary. Continue antibiotics. Red flags for re-assessment reviewed with patient in detail. - keep next appt. Check inr on meds. Follow labs. 2. Chronic obstructive pulmonary disease, unspecified COPD type (HCC) - ICD9: 496, ICD10: J44.9 - stable. 3. Bronchiectasis without complication (HCC) - ICD9: 494.0, ICD10: J47.9 - call if any issues. 4. Paroxysmal atrial fibrillation (HCC) - ICD9: 427.31, ICD10: I48.0 - PROTHROMBIN TIME/PT 5. Heart failure, diastolic, chronic (HCC) - ICD9: 428.32, ICD10: I50.32 - BASIC METABOLIC PNL 6. Chronic respiratory failure with hypoxia (HCC) - ICD9: 518.83, 799.02, ICD10: J96.11 7. Renal cyst - ICD9: 753.10, ICD10: N28.1 - US KIDNEY/BLADDER Kolby Kim documented in this encounterWhite Hospital03-28-2023 History of Present illness Narrative* Gabriela Wood - 10/24/2022 11:44 AM EDT TRANSITION CARE MANAGEMENT (TCM) INITIAL CONTACT Robotics Mechanic Outreach Provider Action/FYI: Initial contact with patient post discharge, spoke to patient and spouse. Patient identified by name and . TRANSITION CARE MANAGEMENT INITIAL OUTREACH DOCUMENTATION: Date of Outreach: 10/24/2022 Outreach Attempt 1: Contact Made Date of Discharge 10/23/2022 Some recent data might be hidden SUMMARY: -Pt discharged from [facility] on 10/23/22. -Admitted for: Hypoxia, possible PNA Do you have a hospital follow up appointment with your PCP? Appointment on 10/26/[address] Kim. Yes. Remind patient of appointment date, time, and location. If not within 14 calendar days of discharge - please reschedule accordingly. MEDICATIONS: Many patients have questions or concerns about their medications once they are home. Were you prescribed any new medications? Yes. Prednisone and Doxycycline. Will be finished at time of follow up. Were you told to hold any medications? Yes. On 10/23/22 she was to hold her coumadin. Restarted 10/24/22. Current dose of coumadin is 2.5 mgdaily Were any of your medications discontinued? If yes, what are those medications? Furosemide was decreased to 20 mg a day. Do you have any questions about getting or taking your medications? No. Was told to resume and continue normal medications after discharge. Your discharge instructions/After visit Summary (AVS) are important in guiding you through the recovery process. Is there anything I might help you understand? No Do you have all the necessary equipment and supplies at home? Yes Medical records from recent hospitalization: Placed for provider to review [facility] Vizcaino [facility] October 23, 2022 3:29pm Note Date/Time October 23, 2022 3:2 9pm [facility] Medical Records Department [address] [place] [address] Consultation - Infectious Dx 10/23/22 1523 MR#: [id number] Acct: [id number] Name: ELZA CHU Rep #:[id number] : 1945 76 From: Trent kennedy MD PCP: Dr. Kolby Kim MD Status:ADM I N Location: [place] [address] Assessment & Plan Assessment/Plan (1) Pneumonia: PLAN: H/o pseudomonal colonization. No prior h/o MRSA. Had MSSA in 2020, 2019, 2018, 2017, etc. Will stop vanc. Given rapid improvement in symptoms, overall low suspicion for pseudomonas. Plan on home with 3 more days po doxy 100mg bid which she has taken in past for copd exacerbations. Recommend followup with Dr. Alex peña. Will follow, thank you HPI Consult Data Date of Consult: 10/23/22 HPI Narrative Reason for Consultation: pneumonia HPI Narrative: ELZA CHU, is a 76 F with chronic bronchiectasis, presented with one week ofincreased sputum, dyspnea, not feeling well. No fever or chills. Admitted here10/20, started on vanc/zosyn. Feeling much better now, back to normal. Uses 2-3L NC at home at night. Full ROS performed and neg except as noted above. 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 Nonrheumatic aortic valve regurgitation Nonspecific chest pain Obesity Palpitations Severe sepsis Syncope and collapse Home Medications pantoprazole 40 mg tablet,delayed release 40 mg PO BID ACID REFLUX 01/14/15 [History Last Taken 07/07/20] bupropion HCl 150 mg 24 hr tablet, extended release 150 mg PO DAILY DEPRESSION 11/15/15 [History Last Taken 07/07/20] montelukast 10 mg tablet 10 mg PO QHS ALLERGIES 05/03/17 [History Last Taken 07/06/20] potassium chloride 20 mEq tablet,extended release(part/cryst) 20 meq PO DAILY SUPPLEMENT 05/03/17 [History Last Taken 07/06/20] aspirin 81 mg chewable tablet 162 mg PO DAILY HEART HEALTH 09/04/17 [History Last Taken 07/07/20] lorazepam 0.5 mg tablet 0.5 mg PO BID PRN ANXIETY 09/04/17 [History Last Taken 07/07/20] furosemide 40 mg tablet 40 mg PO DAILY WATER PILL ##0 12/06/17 [Rx Last Taken 07/06/20] cholecalciferol (vitamin D3) 1,250 mcg (50,000 unit) capsule 50,000 unit PO FR SUPPLEMENT 06/16/19 [History Last Taken 06/25/20] acetaminophen 650 mg tablet,extended release 650 mg PO Q6H PRN BACK PAIN 07/07/20 [History Last Taken 07/07/20] albuterol sulfate 2.5 mg/3 mL (0.083 %) solution for nebulization 2.5 mg (3 mL) inhalation Q4H PRN #25 vials 05/21/21 [Rx Last Taken Unknown] triamcinolone acetonide 55 mcg nasal spray aerosol (Nasacort) 1 spray intranasalDAILY #16.9 mL 06/10/21 [Rx Last Taken Unknown] albuterol sulfate 90 mcg/actuation aerosol inhaler 2 puff inhalation Q4H PRN shortness of breath or wheezing #8.5 grams 10/04/21 [Rx Last Taken Unknown] famotidine 20 mg tablet 20 mg PO DAILY PRN 11/29/21 [History Last Taken Unknown] ferrous sulfate 325 mg (65 mg iron) tablet 325 mg PO BID Check with primary doctor 11/29/21 [History Last Taken Unknown] paroxetine HCl 20 mg tablet 10 mg PO BID Check with primary doctor 11/29/21 [History Last Taken Unknown] warfarin 2.5 mg tablet 4.5 mg PO WEFR blood thinner 11/29/21 [History Last Taken Unknown] warfarin 3 mg tablet 4.5 mg PO SUMOTUTHSA BLOOD THINNER 11/29/21 [History Last Taken Unknown] guaifenesin 1,200 mg tablet, extended release 12 hr 1,200 mg PO Q12H #60 tabs 04/04/22 [Rx Last Taken Unknown] doxycycline monohydrate 100 mg capsule 100 mg PO BID #14 CAPSULES 08/07/22 [Rx Last Taken Unknown] fluticasone furoate 200 mcg-vilanterol 25 mcg/dose inhalation powder (Breo Ellipta) 1 inh inhalation DAILY #60 ea 08/07/22 [Rx Last Taken Unknown] prednisone 20 mg tablet 40 mg PO DAILY #14 TABLETS 08/07/22 [Rx Last Taken Unknown] doxycycline monohydrate 100 mg capsule 100 mg PO BID #14 CAPSULES 09/03/22 [Rx Last Taken Unknown] prednisone 20 mg tablet 60 mg PO DAILY #15 TABLETS 09/03/22 [Rx Last Taken Unknown] pravastatin 80 mg tablet 80 mg PO QHS CHOLESTEROL LOWERING #90 tabs 09/25/22 [Rx Last Taken Unknown] tiotropium bromide 2.5 mcg/actuation mist for inhalation (Spiriva Respimat) 2 puff inhalation QDAY #3 ea 10/17/22 [Rx Last Taken Unknown] amiodarone 200 mg tablet 100 mg PO DAILY Check with primary doctor 10/20/22 [History Last Taken Unknown] ezetimibe 10 mg tablet (Zetia) 10 mg PO DAILY Check with primary doctor 10/20/22[History Last Taken Unknown] metoprolol succinate 50 mg tablet,extended release 24 hr See Rx Instructions .Route .COMPLEX Check with primary doctor 10/20/22 [History Last Taken Unknown] warfarin 2.5 mg tablet 2.5 mg PO DAILY Check with primary doctor 10/20/22 [History Last Taken Unknown] Allergy/AdvReac Type Severity Reaction Status Date / Time donepezil Allergy Severe shortness Verified 10/20/22 13:26 of breath risperidone Allergy Severe Confusion Verified 10/20/22 13:26 Sulfa (Sulfonamide Allergy Swelling Verified 10/20/22 13:26 Antibiotics) celecoxib [From Celebrex] AdvReac Severe Swelling Verified 10/20/22 13:26 dextromethorphan AdvReac Severe hallucinati Verified 10/20/22 13:26 [From Delsym] on adhesive AdvReac blisters Verified 10/20/22 13:26 codeine AdvReac Itching Verified 10/20/22 13:26 levofloxacin [From Levaquin] AdvReac pain in Verified 10/20/22 13:26 legs and swelling lisinopril AdvReac cough Verified 10/20/22 13:26 oxycodone [Oxycodone] AdvReac Itching Verified 10/20/22 13:26 oxycodone HCl [From Percocet] AdvReac Itching Verified 10/20/22 13:26 Penicillins AdvReac heart Verified 10/20/22 13:26 palpitations prochlorperazine edisylate AdvReac Low blood Verified 10/20/22 13:26 [From Compazine] pressure prochlorperazine maleate AdvReac Low blood Verified 10/20/22 13:26 [From Compazine] pressure tramadol HCl [From Ultram] AdvReac Itching Verified 10/20/22 13:26 Family History Mother Arthritis CAD (coronary artery disease) Father Arthritis High cholesterol CAD (coronary artery disease) Sister Diabetes High cholesterol Hypertension Brother Diabetes High cholesterol Hypertension Surgical History H/O aortic valve replacement History of back surgery History of foot surgery History of hysterectomy History of mechanical aortic valve replacement (~10/07/13) History of sinus surgery Social History household members: spouse Smoking Status: Never smoker alcohol intake: never substance use type: does not use caffeine: Yes Type: coffee what type of physical activity do you participate in: none seatbelt use: always do you feel safe at home: Yes Physical Exam Const alert, oriented x3 and no apparent distress General Appearance: cooperative HEENT normocephalic and head/scalp atraumatic Eyes PERRL and EOMs intact bilaterally Neck supple and No nodes Resp Auscultation: rhonchi and wheezes Cardio regular rate and regular rhythm GI soft to palpation, non-tender and non-distended Extremity General Extremity: Negative for edema Skin no rashes or lesions noted Neuro CN's II-XII intact bilaterally Medical Records Data Medical Nutrition Assessment Dietitian: Malnutrition Criteria Met Start: 10/21/22 15:38 Freq: Status: Active Protocol: Document 10/21/22 15:38 RMA (Rec: 10/21/22 15:38 RMA [id number]) Nutrition Malnutrition Evidence of Malnutrition Exists Yes Malnutrition (severe): Chronic Evidenced By Suboptimal Energy Intake ( Severe),Weight Loss (Severe) Clinical Problem Chronic Disease or Condition Related Malnutrition Etiology Severe protein-calorie malnutrition in the context of chronic disease, debility related to difficulty chewing and inadequate oral intake Signs/Symptoms as evidenced by ~17% weight loss x 6 months and PO meeting less than 50% estimated nutrition needs x 6 months Status Active Problem Recommendation Dietitian Recommendations/Changes Will liberalize diet to regular/no added salt given signs/symptoms of malnutrition ; pt to select soft foods that are easy to chew due to impaired dentition. Will d/c ensure compact w/ medpass as pt dislikes and refusing. Will add 240ml ensure clear w/ breakfast for tolerance-- likes apple. Will add fortified pudding BID w/ lunch and dinner as tolerated. Lab / Micro Data Attestation: I reviewed the patient's lab results. Result Diagrams: 10/23/22 01:45 10/23/22 01:45 Labs: Laboratory Results - last 24 hr 10/23/22 01:45: Vancomycin Trough 5.6 10/23/22 01:45: WBC 18.1 H, RBC 4.41, Hgb 12.3, Hct 41.2, MCV 93.4, MCH 27.9, MCHC 29.9 L, RDW Std Deviation 47.7 H, RDW Coeff of Loki 14.0, Plt Count 325, MPV10.1, Immature Gran % (Auto) 0.800, Neut % (Auto) 91.3 H, Lymph % (Auto) 2.8 L, [place] % (Auto) 5.0, Eos % (Auto) 0.0, Baso % (Auto) 0.1, Absolute Neuts (auto) 16.5 H, Absolute Lymphs (auto) 0.51 L, Nucleated RBC % 0, Differential Comment COMMENT 10/23/22 01:45: PT 36.1 H, INR 3.7 10/23/22 01:45: Sodium 143, Potassium 3.6, Chloride 106, Carbon Dioxide 33.0 H, Anion Gap 4 L, BUN 29 H, Creatinine 1.06 H, Estim Creat Clear Calc 31.93, Est GFR (MDRD) Af Amer 65, Est GFR (MDRD) Non-Af 53 L, BUN/Creatinine Ratio 27.4 H, Glucose 112 H, Calcium 9.0 10/23/22 1529 <Electronically signed by Trent Vizcaino MD> Cosigner Signature (if applicable): CC: Dr. Faviola Perry MD; Dr. Anju Sanz MD; Dr. Trent Vizcaino MD; Dr. Kolby Kim MD~ Signed [facility] Work Phone: [phone]) 826-898803-27-2023 Consult note Author Kleber Gonzales [facility] October 23, 2022 5:26am Note Date/Time October 23, 2022 5:2 6am [facility] Medical Records Department [address] [place] [address] Pharmacokinetic/Renal -Consult 10/23/22 0525 MR#: [id number] Acct: [id number] Name: ELZA CHU Rep #:[id number] : 1945 76 From: Kleber Govea od PCP: Dr. Kolby Kim MD Status:ADM I N Y Location: [place] [id number]- Consult Pharmacy has been consulted to manage selected antiobiotic: Vancomycin Type of Consult: Follow-up Labs: Sodium 143 mmol/L (136-145) 10/23/22 01:45 Potassium 3.6 mmol/L (3.5-5.1) 10/23/22 01:45 Chloride 106 mmol/L (98-107) 10/23/22 01:45 Carbon Dioxide 33.0 mmol/L (21.0-32.0) H 10/23/22 01:45 Anion Gap 4 (5-15) L 10/23/22 01:45 BUN 29 mg/dL (7-18) H 10/23/22 01:45 Creatinine 1.06 mg/dL (0.55-1.02) H 10/23/22 01:45 Est GFR (MDRD) Af Amer 65 mL/min (>60) 10/23/22 01:45 Est GFR (MDRD) Non-Af 53 mL/min (>60) L 10/23/22 01:45 BUN/Creatinine Ratio 27.4 RATIO (10-20) H 10/23/22 01:45 Glucose 112 mg/dL (74-106) H 10/23/22 01:45 Vancomycin Trough 5.6 ug/mL (5.0-15.0) 10/23/22 01:45 Microbiology: Microbiology 10/20/22 17:05 Urine, Clean Catch Legionella Antigen - Final 10/20/22 17:05 Urine, Clean Catch Streptococcus pneumoniae Antigen (M - Final 10/20/22 19:37 Mucosa - Nasopharyngeal Respiratory Panel (PCR) - Final 10/20/22 16:15 Nasal Secretion SARS-CoV-2 & FLU Antigen (Rapid) - Final Goal Trough: 15-20 mcg/mL Pharmacy Plan for Drug Dosing: Pharmacy Service will continue to monitor and adjust dosing as required. TROUGH 5.6 @ 24 HRS. INCREASE TO 1GM Q24H, SCr INCREASED TO 1.06 FROM 0.92 Follow-Up Labs: Trough Vancomycin Labs to be done on [date and time ordered]: 10/26 @ 0130 10/23/22 0526 <Electronically signed by Kleber cordero > Date _ Kleber Arias Signature (if applicable): Date CC: ~ Signed [facility] Work Phone: 1([phone]) 633-687503-26-[address] Villarreal [facility] October 22, 2022 2:47pm Note Date/Time October 22, 2022 11: 45am [facility] Medical Records Department [address] [address] Progress Note - Hospitalist 10/22/22 1145 MR#: [id number] Acct: [id number] Name: ELZA CHU Rep #:[id number] : 1945 76 From: Katherine Villarreal MD PCP: Dr. Kolby Kim MD Status:ADM I N Location: [place] [address] Reason for Visit Reason for Visit: Diagnoses Pneumonia, unspecified organism (10/20/22) Subjective Subjective Still having shortness of breath but getting closer to baseline, still has coughthat is productive but that is slowly improving as well. Reports that she had been having some abdominal pain but this is resolved. Objective Data Objective Data Vital Signs: Vital Signs Temp Pulse Resp BP Pulse Ox O2 Del Method O2 Flow Rate 98.6 F 82 16 152/83 H 94 Room Air 2 10/22/22 10:06 10/22/22 10:10 10/22/22 10:06 10/22/22 10:10 10/22/22 11:23 10/22/22 10:06 10/22/22 11:23 Oxygen Flow Rate (L/min) 2 Oxygen Delivery Method Room Air Weight: 56.8 kg Body Mass Index (BMI) 24.4 Intake & Output: Intake and Output for Last 24 Hours 10/20/22 10/21/22 10/22/22 23:59 23:59 23:59 Intake Total 50 / 50 709 / 709 365 / 365 Balance 50 / 50 709 / 709 365 / 365 Medical Nutrition Assessment Dietitian: Malnutrition Criteria Met Start: 10/21/22 15:38 Freq: Status: Active Protocol: Document 10/21/22 15:38 RMA (Rec: 10/21/22 15:38 RMA [id number]) Nutrition Malnutrition Evidence of Malnutrition Exists Yes Malnutrition (severe): Chronic Evidenced By Suboptimal Energy Intake ( Severe),Weight Loss (Severe) Clinical Problem Chronic Disease or Condition Related Malnutrition Etiology Severe protein-calorie malnutrition in the context of chronic disease, debility related to difficulty chewing and inadequate oral intake Signs/Symptoms as evidenced by ~17% weight loss x 6 months and PO meeting less than 50% estimated nutrition needs x 6 months Status Active Problem Recommendation Dietitian Recommendations/Changes Will liberalize diet to regular/no added salt given signs/symptoms of malnutrition ; pt to select soft foods that are easy to chew due to impaired dentition. Will d/c ensure compact w/ medpass as pt dislikes and refusing. Will add 240ml ensure clear w/ breakfast for tolerance-- likes apple. Will add fortified pudding BID w/ lunch and dinner as tolerated. Lab / Micro Data Result Diagrams: 10/22/22 06:10 10/22/22 06:10 Labs: Laboratory Results - last 24 hr 10/22/22 06:10: WBC 21.0 H, RBC 4.36, Hgb 12.4, Hct 40.1, MCV 92.0, MCH 28.4, MCHC 30.9 L, RDW Std Deviation 47.8 H, RDW Coeff of Loki 14.0, Plt Count 307, MPV10.1, Immature Gran % (Auto) 0.600, Neut % (Auto) 94.8 H, Lymph % (Auto) 2.1 L, [place] % (Auto) 2.4, Eos % (Auto) 0.0, Baso % (Auto) 0.1, Absolute Neuts (auto) 19.9 H, Absolute Lymphs (auto) 0.44 L, Nucleated RBC % 0 10/22/22 06:10: Sodium 140, Potassium 4.0, Chloride 107, Carbon Dioxide 30.0, Anion Gap 3 L, BUN 20 H, Creatinine 0.92, Estim Creat Clear Calc 36.78, Est GFR (MDRD) Af Amer 76, Est GFR (MDRD) Non-Af 63, BUN/Creatinine Ratio 21.8 H, Glucose 125 H, Calcium 9.1 10/22/22 08:45: PT 29.1 H, INR 2.8 Micro: Microbiology 10/20/22 17:05 Urine, Clean Catch Legionella Antigen - Final 10/20/22 17:05 Urine, Clean Catch Streptococcus pneumoniae Antigen (M - Final 10/20/22 19:37 Mucosa - Nasopharyngeal Respiratory Panel (PCR) - Final 10/20/22 16:15 Nasal Secretion SARS-CoV-2 & FLU Antigen (Rapid) - Final Physical Exam Narrative General: Alert, oriented, no apparent distress HEENT: Atraumatic, normocephalic Eyes: Anicteric, normal conjunctiva, extraocular movements grossly intact Neck: Supple Respiratory: Somewhat coarse at the bases with scattered wheezes, normal respiratory effort Cardiovascular: Regular rate and rhythm GI: Soft, nontender, nondistended Extremities: No edema Musculoskeletal: Moving all extremities Neuro: No overt focal neurological deficits Skin: No rashes appreciated Psych: Cooperative Assessment & Plan Assessment/Plan (1) Pneumonia: PLAN: Plan #Hypoxia due to right multifocal pneumonia -CT on admission showed no evidence of PE but patchy groundglass opacities Has a history of Pseudomonas and MRSA and was started on IV vancomycin and Zosyn -Urine Legionella and gins negative -BNP slightly elevated on admission but no evidence of CHF exacerbation -On budesonide twice daily, will de-escalate steroids to prednisone 40 at breakfast from IV -Is improving #Stable chronic heart failure with preserved ejection fraction -Continue Lasix #Ascending thoracic aortic aneurysm -Has been noted before, size stable #Paroxysmal atrial fibrillation -amiodarone and metoprolol -On Coumadin -INR is therapeutic DVT prophylaxis: On Coumadin for A-fib.? INR therapeutic. Charges/Coding Visit Charges Inpatient E&M: 81784 Subs Hosp L2 10/22/22 1447 <Electronically signed by Katherine Villarreal MD> Cosigner Signature (if applicable): CC: ~ Signed [facility] Work Phone: [phone]) 430-246503-25-[address] Sanz [facility] October 21, 2022 5:04pm Note Date/Time October 21, 2022 2:2 6pm [facility] Medical Records Department [address] [place] [id number] Progress Note 10/21/22 1418 MR#: [id number] Acct: [id number] Name: ELZA CHU Rep #:[id number] : 1945 76 From: Anju Sanz MD PCP: Dr. Kolby Kim MD Status:ADM I N Location: [place] [address] Subjective Subjective Patient seen and examined. She was admitted with a complaint of shortness of breath, chest pain, dizziness and abdominal discomfort.Imaging done showed multifocal pneumonia. She denies any fever, chills, but is coughing. She says cough is not really productive. She denies any fever, chills, palpitations, nausea, or vomiting. Objective Data Objective Data Vital Signs: Vital Signs Temp Pulse Resp BP Pulse Ox O2 Del Method O2 Flow Rate 98.2 F 86 14 148/68 H 96 Nasal Cannula 3 10/21/22 08:50 10/21/22 08:50 10/21/22 08:50 10/21/22 08:50 10/21/22 08:50 10/21/22 08:50 10/21/22 08:50 Oxygen Flow Rate (L/min) 3 Oxygen Delivery Method Nasal Cannula Weight: 124 lb 5.451 oz Body Mass Index (BMI) 24.3 Intake & Output: Intake and Output for Last 24 Hours 10/19/22 10/20/22 10/21/22 23:59 23:59 23:59 Intake Total 50 / 50 419 / 419 Balance 50 / 50 419 / 419 Lab / Micro Data Result Diagrams: 10/21/22 06:22 10/21/22 06:22 Labs: Laboratory Results - last 24 hr 10/20/22 15:55: WBC 14.9 H, RBC 4.55, Hgb 12.7, Hct 41.1, MCV 90.3, MCH 27.9, MCHC 30.9 L, RDW Std Deviation 45.2 H, RDW Coeff of Loki 13.6, Plt Count 282, MPV9.9, Immature Gran % (Auto) 0.500, Neut % (Auto) 89.2 H, Lymph % (Auto) 4.7 L, [place] % (Auto) 4.6, Eos % (Auto) 0.7, Baso % (Auto) 0.3, Absolute Neuts (auto) 13.3 H, Absolute Lymphs (auto) 0.70 L, Nucleated RBC % 0 10/20/22 15:55: PT 25.9 H, INR 2.4 10/20/22 15:55: Sodium 138, Potassium 3.6, Chloride 101, Carbon Dioxide 31.0, Anion Gap 6, BUN 14, Creatinine 0.96, Estim Creat Clear Calc 35.25, Est GFR (MDRD) Af Amer 72, Est GFR (MDRD) Non-Af 60, BUN/Creatinine Ratio 14.6, Glucose 91, Calcium 9.6, Troponin I High Sens 19, Lipase 47 L 10/20/22 15:55: B-Natriuretic Peptide 199.4 H 10/20/22 15:55: Procalcitonin 0.05 10/20/22 17:05: Urine Color Yellow, Urine Clarity Clear, Urine pH 7.0, Ur [employer] 1.010, Urine Protein 15 H, Urine Glucose (UA) Normal, Urine Ketones Negative, Urine Occult Blood 25 H, Urine Nitrite Negative, Urine Bilirubin Negative, Urine Urobilinogen Normal, Ur Leukocyte Esterase 25 H, UrineRBC 0-5 SEEN, Urine WBC 0- 5 SEEN, Ur Squamous Epith Cells 0-5 SEEN, Urine Bacteria RARE, Urine Mucus 0 SEEN 10/20/22 18:15: Troponin I High Sens 21 10/20/22 18:15: Total Bilirubin 0.40, Direct Bilirubin 0.15, AST 11 L, ALT 10 L,Alkaline Phosphatase 73, Total Protein 5.8 L, Albumin 2.4 L, Globulin 3.4 10/20/22 18:15: Magnesium 1.5 L 10/20/22 19:37: COVID-19 (DELFINA) Not Detected 10/20/22 23:05: Troponin I High Sens 18 10/21/22 06:22: Sodium 139, Potassium 3.5, Chloride 105, Carbon Dioxide 31.0, Anion Gap 3 L, BUN 12, Creatinine 0.92, Estim Creat Clear Calc 36.78, Est GFR (MDRD) Af Amer 76, Est GFR (MDRD) Non-Af 63, BUN/Creatinine Ratio 13.1, Glucose 149 H, Calcium 9.5, Magnesium 2.5, Total Bilirubin 0.30, AST 10 L, ALT 11 L, Alkaline Phosphatase 81, Total Protein 6.3 L, Albumin 2.5 L, Globulin 3.8, Albumin/Globulin Ratio 0.7 L, Triglycerides 79, Cholesterol 163, LDL [id number], VLDL Cholesterol 16, HDL Cholesterol 53 10/21/22 06:22: WBC 8.6, RBC 4.53, Hgb 12.8, Hct 40.6, MCV 89.6, MCH 28.3, MCHC 31.5 L, RDW Std Deviation 45.4 H, RDW Coeff of Loki 13.7, Plt Count 270, MPV 9.9,Immature Gran % (Auto) 0.400, Neut % (Auto) 95.8 H, Lymph % (Auto) 3.2 L, [place] %(Auto) 0.5, Eos % (Auto) 0.0, Baso % (Auto) 0.1, Absolute Neuts (auto) 8.2 H, Absolute Lymphs (auto) 0.27 L, Nucleated RBC % 0, Differential Comment COMMENT 10/21/22 06:22: PT 25.0 H, INR 2.3 Micro: Microbiology 10/20/22 17:05 Urine, Clean Catch Legionella Antigen - Final 10/20/22 17:05 Urine, Clean Catch Streptococcus pneumoniae Antigen (M - Final 10/20/22 19:37 Mucosa - Nasopharyngeal Respiratory Panel (PCR) - Final 10/20/22 16:15 Nasal Secretion SARS-CoV-2 & FLU Antigen (Rapid) - Final Radiography Diagnostic Testing: Radiology Impression Chest/Abdomen/Pelvis CTA 10/20/22 16:09 IMPRESSION: 1. Atherosclerotic changes of the aorta without dissection or aneurysm. 2. No acute cardiopulmonary disease. 3. Large retrocardiac hiatal hernia. 4. Fatty infiltration of the liver. 5. Question large right renal cyst. 6. Status post hysterectomy. 7. Degenerative changes and scoliosis of the thoracolumbar spine with multiple remote appearing compression fractures. Normal contrast-enhanced CT of the chest. Normal contrast-enhanced CT of the abdomen and pelvis. Electronically Signed: Prieto Jauregui DO at 17:50 EDT Reading Location ID and State: [facility] / [place] Tel [phone], Service support , Chest X-Ray 10/20/22 16:17 IMPRESSION: 1. Evidence of median sternotomy. 2. No acute cardiopulmonary disease or interval change. 3. Hiatal hernia. Electronically Signed: Prieto Jauregui DO at 16:36 EDT Reading Location ID and State: [address] [place] [address] Tel [phone], Service support , Physical Exam Const alert, oriented x3 and no apparent distress General Appearance: cooperative HEENT normocephalic, head/scalp atraumatic and moist oral mucous membranes Neck no lymphadenopathy and supple Lymph Lymphatic: no lymphadenopathy noted and no lymphedema noted Resp Resp Narrative: diminished breath sounds bibasally, few crackles. On 3L of oxygen by nasal canula Cardio regular rate, regular rhythm, S1 normal heart sound, S2 normal heart sound and no murmurs GI GI Narrative: abdomen soft, nontender, no organomegaly. Extremity normal capillary refill, no clubbing, cyanosis or edema and no calf tenderness Skin General Skin Exam: no breakdown Neuro CN's II-XII intact bilaterally, no focal motor deficits, no sensory deficits noted and deep tendon reflexes 2+ bilaterally Psych thought process normal Assessment & Plan Assessment/Plan (1) Pneumonia: PLAN: Plan #Hypoxia due to right multifocal pneumonia * she was admitted with a complaint of shortness of breath and chest pain * tropoonins not elevated * hypoxia is improving. On 3L of oxygen by nasal canula * CTA chest showed no evidence of PE, but showed patchy groundglass opacities * on IV vancomycin and zosyn as she has a history of pseudomonas and MRSA infection * BNP was also slightly elevated, but n evidence of CHV * urine for strep and legionella negative * sputum cultures pending * Breathing treatments of bronchodilators. Titrate oxygen to maintain saturation above 90%. #Chest pain: Thought to be due to pneumonia. Troponins not elevated. EKG showed no acute ST changes. On aspirin and sublingual nitroglycerin #Heart failure preserved ejection fraction: Stable. BNP was mildly elevated at 199. Diurese with Lasix as well. #Ascending thoracic aortic aneurysm: This is known. Size is stable. Will monitor. #Paroxysmal A-fib: On amiodarone and metoprolol. On Coumadin. INR is therapeutic. #Hyperlipidemia: On statin #Dementia without behavioral disturbance: Stable DVT prophylaxis: On Coumadin for A-fib. INR therapeutic. Charges/Coding Visit Charges Inpatient E&M: 82209 Subs Hosp L2 10/21/22 1704 <Electronically signed by Anju Sanz MD> Anju Sanz MD Cosigner Signature (if applicable): CC: ~ Signed [facility] Work Phone: 1(231) 904-637303-25-2023 Consult note Author Kleber Gonzales [facility] October 21, 2022 5:58am Note Date/Time October 21, 2022 5:5 8am [facility] Medical Records Department [address] [place] [address] Pharmacokinetic/Renal -Consult 10/21/22 0557 MR#: [id number] Acct: [id number] Name: ELZA CHU Rep #:[id number] : 1945 76 From: Kleber Govea od PCP: Dr. Kolby Kim MD Status:ADM I N Y Location: [place] [address] Consult Pharmacy has been consulted to manage selected antiobiotic: Vancomycin Type of Consult: New start Suspected Infection: Pneumonia Labs: Sodium 138 mmol/L (136-145) 10/20/22 15:55 Potassium 3.6 mmol/L (3.5-5.1) 10/20/22 15:55 Chloride 101 mmol/L (98-107) 10/20/22 15:55 Carbon Dioxide 31.0 mmol/L (21.0-32.0) 10/20/22 15:55 Anion Gap 6 (5-15) 10/20/22 15:55 BUN 14 mg/dL (7-18) 10/20/22 15:55 Creatinine 0.96 mg/dL (0.55-1.02) 10/20/22 15:55 Est GFR (MDRD) Af Amer 72 mL/min (>60) 10/20/22 15:55 Est GFR (MDRD) Non-Af 60 mL/min (>60) 10/20/22 15:55 BUN/Creatinine Ratio 14.6 RATIO (10-20) 10/20/22 15:55 Glucose 91 mg/dL (74-106) 10/20/22 15:55 Microbiology: Microbiology 10/20/22 17:05 Urine, Clean Catch Legionella Antigen - Final 10/20/22 17:05 Urine, Clean Catch Streptococcus pneumoniae Antigen (M - Final 10/20/22 19:37 Mucosa - Nasopharyngeal Respiratory Panel (PCR) - Final 10/20/22 16:15 Nasal Secretion SARS-CoV-2 & FLU Antigen (Rapid) - Final Goal Trough: 15-20 mcg/mL Pharmacy Plan for Drug Dosing: Pharmacy Service will continue to monitor and adjust dosing as required. Medications Vancomycin HCl 750 mg/ Sodium (Chloride) 265 mls @ 250 mls/hr IV Q24H STACEY Discontinued Medications Vancomycin HCl 750 mg/ Sodium (Chloride) 265 mls @ 250 mls/hr IV X1 ONE Stop: 10/20/22 20:28 Last Admin: 10/21/22 01:15 Dose: Infused Follow-Up Labs: Trough Vancomycin Labs to be done on [date and time ordered]: 10/22 @ 2230 10/21/22 0558 <Electronically signed by Kleber cordero > Date _ Kleber Gonzales Cosigner Signature (if applicable): Date CC: ~ Signed [facility] Work Phone: [phone]) 304-651103-24-2023 History and physical note Author Dr. Perry [facility] October 20, 2022 9:44pm Note Date/Time October 20, 2022 7:2 4pm [facility] Medical Records Department [address] [place] [id number] History & Physical Exam 10/20/221922 MR#: [id number] Acct: [id number] Name: ELZA CHU Rep #:[id number] : 1945 76 From: Faviola Perry MD PCP: Dr. Kolby Kim MD Status:ADM I N Location: [place] [address] HPI - General General Date of Admission: 10/20/22 Date of Service: 10/20/22 Chief Complaint: Dyspnea, chest discomfort, LH/Dizziness, abdominal discomfort. HPI Narrative The patient is a 76 y/o F w/ PMHx: Asthma, HTN, HLD, Dementia unclear type without behavioral disturbance history, HERLINDA with q HS oxygen only not using CPAPor BIPAP, Prediabetes mellitus type II, CKD stage III unclear subtype, Anxiety and Depression, PAF, Chronic diastolic CHF, Valvular Heart Disease s/p AVR mechanical valve, Chronic sinusitis (reported MRSA, pseudomonas), GERD who presents to the [facility] ED on 10/20/22 with history of persistent chest discomfort with pressure-like sensation and dyspnea ongoing for approximately 3 weeks reportedly intermittent with onset when she is exerting herself with lightheadedness and dizziness with sensation that she is going to fall promptingapproximately 10 minutes of rest for recovery with occasional associated nausea without emesis, diaphoresis with no specific recent cough, congestion or increased wheezing however given persistent symptoms prompted ED evaluation. Inthe ED upon evaluation patient has persistent coughing in the room and on evaluation does have wheezing. She does report some vague abdominal discomfort describing it as achy in the middle of her abdomen typically coming on as well with her chest discomfort. Patient's spouse who is present has not been ill himself. Work-up in the ED included Tmax 100.3, heart rate 87, BP initially 160/73 with most recent repeat 137/63, respiratory rate 22, initially 94% on room air however desaturated to 89% on room air-->worsening to 80% when ambulation attempted improving to 92% on 2 L nasal cannula, CBC with WC 14.9, hemoglobin 12.7, platelet 282 with left shift and lymphopenia, coags with INR 2.4, PT 25.9, BMP unremarkable, BNP 199.4, lipase 47, troponin initial 19 with repeat 21, rapid SARS COVID and influenza antigen negative, chest x-ray with evidence of prior median sternotomy with no acute cardiopulmonary disease otherwise, hiatal hernia noted, CTA chest/abdomen/pelvis with atherosclerotic changes of the order without dissection or aneurysm, large retrocardiac hiatal hernia, fatty infiltration of liver, questionable large right renal cyst, evidence status post hysterectomy, degenerative changes and scoliosis of thoracolumbar spine with multiple remote appearing compression fractures otherwise unremarkable imaging, urinalysis unremarkable, EKG with sinus rhythm with no acute evidence of ischemia. In the ED patient administered Tylenol 1000mg p.o. x1, albuterol as well as DuoNeb therapy, aspirin 324 mg p.o. x1 and Solu-Medrol 125 mg IV x1. Vanc, zosyn administered per ED physician following discussions given review of micro history with + pseudomonas and MRSA history. 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 Nonrheumatic aortic valve regurgitation Nonspecific chest pain Obesity Palpitations Severe sepsis Syncope and collapse Home Medications pantoprazole 40 mg tablet,delayed release 40 mg PO BID ACID REFLUX 01/14/15 [History Last Taken 07/07/20] bupropion HCl 150 mg 24 hr tablet, extended release 150 mg PO DAILY DEPRESSION 11/15/15 [History Last Taken 07/07/20] montelukast 10 mg tablet 10 mg PO QHS ALLERGIES 05/03/17 [History Last Taken 07/06/20] potassium chloride 20 mEq tablet,extended release(part/cryst) 20 meq PO DAILY SUPPLEMENT 05/03/17 [History Last Taken 07/06/20] aspirin 81 mg chewable tablet 162 mg PO DAILY HEART HEALTH 09/04/17 [History Last Taken 07/07/20] lorazepam 0.5 mg tablet 0.5 mg PO BID PRN ANXIETY 09/04/17 [History Last Taken 07/07/20] furosemide 40 mg tablet 40 mg PO DAILY WATER PILL ##0 12/06/17 [Rx Last Taken 07/06/20] cholecalciferol (vitamin D3) 1,250 mcg (50,000 unit) capsule 50,000 unit PO FR SUPPLEMENT 06/16/19 [History Last Taken 06/25/20] acetaminophen 650 mg tablet,extended release 650 mg PO Q6H PRN BACK PAIN 07/07/20 [History Last Taken 07/07/20] albuterol sulfate 2.5 mg/3 mL (0.083 %) solution for nebulization 2.5 mg (3 mL) inhalation Q4H PRN #25 vials 05/21/21 [Rx Last Taken Unknown] triamcinolone acetonide 55 mcg nasal spray aerosol (Nasacort) 1 spray intranasalDAILY #16.9 mL 06/10/21 [Rx Last Taken Unknown] albuterol sulfate 90 mcg/actuation aerosol inhaler 2 puff inhalation Q4H PRN shortness of breath or wheezing #8.5 grams 10/04/21 [Rx Last Taken Unknown] famotidine 20 mg tablet 20 mg PO DAILY PRN 11/29/21 [History Last Taken Unknown] ferrous sulfate 325 mg (65 mg iron) tablet 325 mg PO BID Check with primary doctor 11/29/21 [History Last Taken Unknown] paroxetine HCl 20 mg tablet 10 mg PO BID Check with primary doctor 11/29/21 [History Last Taken Unknown] warfarin 2.5 mg tablet 4.5 mg PO WEFR blood thinner 11/29/21 [History Last Taken Unknown] warfarin 3 mg tablet 4.5 mg PO SUMOTUTHSA BLOOD THINNER 11/29/21 [History Last Taken Unknown] guaifenesin 1,200 mg tablet, extended release 12 hr 1,200 mg PO Q12H #60 tabs 04/04/22 [Rx Last Taken Unknown] doxycycline monohydrate 100 mg capsule 100 mg PO BID #14 CAPSULES 08/07/22 [Rx Last Taken Unknown] fluticasone furoate 200 mcg-vilanterol 25 mcg/dose inhalation powder (Breo Ellipta) 1 inh inhalation DAILY #60 ea 08/07/22 [Rx Last Taken Unknown] prednisone 20 mg tablet 40 mg PO DAILY #14 TABLETS 08/07/22 [Rx Last Taken Unknown] doxycycline monohydrate 100 mg capsule 100 mg PO BID #14 CAPSULES 09/03/22 [Rx Last Taken Unknown] prednisone 20 mg tablet 60 mg PO DAILY #15 TABLETS 09/03/22 [Rx Last Taken Unknown] pravastatin 80 mg tablet 80 mg PO QHS CHOLESTEROL LOWERING #90 tabs 09/25/22 [Rx Last Taken Unknown] tiotropium bromide 2.5 mcg/actuation mist for inhalation (Spiriva Respimat) 2 puff inhalation QDAY #3 ea 10/17/22 [Rx Last Taken Unknown] amiodarone 200 mg tablet 100 mg PO DAILY Check with primary doctor 10/20/22 [History Last Taken Unknown] ezetimibe 10 mg tablet (Zetia) 10 mg PO DAILY Check with primary doctor 10/20/22[History Last Taken Unknown] metoprolol succinate 50 mg tablet,extended release 24 hr See Rx Instructions .Route .COMPLEX Check with primary doctor 10/20/22 [History Last Taken Unknown] warfarin 2.5 mg tablet 2.5 mg PO DAILY Check with primary doctor 10/20/22 [History Last Taken Unknown] Allergy/AdvReac Type Severity Reaction Status Date / Time donepezil Allergy Severe shortness Verified 10/20/22 13:26 of breath risperidone Allergy Severe Confusion Verified 10/20/22 13:26 Sulfa (Sulfonamide Allergy Swelling Verified 10/20/22 13:26 Antibiotics) celecoxib [From Celebrex] AdvReac Severe Swelling Verified 10/20/22 13:26 dextromethorphan AdvReac Severe hallucinati Verified 10/20/22 13:26 [From Delsym] on adhesive AdvReac blisters Verified 10/20/22 13:26 codeine AdvReac Itching Verified 10/20/22 13:26 levofloxacin [From Levaquin] AdvReac pain in Verified 10/20/22 13:26 legs and swelling lisinopril AdvReac cough Verified 10/20/22 13:26 oxycodone [Oxycodone] AdvReac Itching Verified 10/20/22 13:26 oxycodone HCl [From Percocet] AdvReac Itching Verified 10/20/22 13:26 Penicillins AdvReac heart Verified 10/20/22 13:26 palpitations prochlorperazine edisylate AdvReac Low blood Verified 10/20/22 13:26 [From Compazine] pressure prochlorperazine maleate AdvReac Low blood Verified 10/20/22 13:26 [From Compazine] pressure tramadol HCl [From Ultram] AdvReac Itching Verified 10/20/22 13:26 Family History Mother Arthritis CAD (coronary artery disease) Father Arthritis High cholesterol CAD (coronary artery disease) Sister Diabetes High cholesterol Hypertension Brother Diabetes High cholesterol Hypertension Surgical History H/O aortic valve replacement History of back surgery History of foot surgery History of hysterectomy History of mechanical aortic valve replacement (~10/07/13) History of sinus surgery Social History household members: spouse Smoking Status: Never smoker alcohol intake: never substance use type: does not use caffeine: Yes Type: coffee what type of physical activity do you participate in: none seatbelt use: always do you feel safe at home: Yes ROS ROS Narrative Admission Review of Systems: CONSTITUTIONAL: No weight loss, + ED noted fever without chills, weakness or fatigue. HEENT: Eyes: No visual loss, blurred vision, double vision or yellow sclerae. Ears, Nose, Throat: No hearing loss, sneezing, congestion, runny nose or sore throat. SKIN: No rash or itching, lesions, wounds. CARDIOVASCULAR: + chest pain, chest pressure or chest discomfort, occasional palpitations, LH/Dizziness. No edema, orthopnea, syncopal events. RESPIRATORY: + shortness of breath, denies but in ED ongoing coughing without marked sputum and noted wheezing, No hemoptysis. GASTROINTESTINAL: + anorexia, nausea, vague abdominal pain, No vomiting, diarrhea, melena, BRBPR. GENITOURINARY: No dysuria, frequency, urgency or retention. NEUROLOGICAL: + LH, dizziness, near syncopal type sensation occasionally. No headache, paralysis, ataxia, numbness or tingling in the extremities, focal weakness, change in bowel or bladder control, seizure. MUSCULOSKELETAL: + muscle, back pain, joint pain or stiffness. HEMATOLOGIC: + anemia, bleeding or bruising. LYMPHATICS: No enlarged nodes. No history of splenectomy. PSYCHIATRIC: + history of depression or anxiety. ENDOCRINOLOGIC: No reports of sweating, cold or heat intolerance. No polyuria orpolydipsia. ALLERGIES: No history of asthma, hives, eczema or rhinitis. Vital Signs Vital Signs Vital Signs: 10/20/22 13:26 10/20/22 15:54 10/20/22 15:54 Temperature 95.5 F L 100.3 F H Temperature Source Temporal Oral Pulse Rate 87 83 Respiratory Rate 22 H 18 Respiratory Effort Respiratory Depth Respiratory Pattern Blood Pressure 160/73 H 154/88 H Blood Pressure Mean 102 110 Pulse Ox 94 89 92 Oxygen Delivery Method Room Air Room Air Nasal Cannula Oxygen Flow Rate (L/min) 2 10/20/22 16:31 10/20/22 18:00 10/20/22 19:15 Temperature 98.5 F 98.7 F Temperature Source Oral Temporal Pulse Rate 70 79 Respiratory Rate 17 16 Respiratory Effort Normal Non-Labored Respiratory Depth Normal Respiratory Pattern Normal Blood Pressure 137/63 H 146/72 H Blood Pressure Mean 87 96 Pulse Ox 92 94 Oxygen Delivery Method Nasal Cannula Nasal Cannula Oxygen Flow Rate (L/min) 2 2 10/20/22 19:15 Temperature Temperature Source Pulse Rate Respiratory Rate 15 Respiratory Effort Respiratory Depth Respiratory Pattern Blood Pressure Blood Pressure Mean Pulse Ox Oxygen Delivery Method Oxygen Flow Rate (L/min) Weight Weight: 126 lb Body Mass Index (BMI) 24.6 Physical Exam Narrative Physical Examination: General: Awake, alert, oriented x 3 and cooperative, seated upright in the ED bed, fatigued and ill-appearing, frequent coughing throughout evaluation, nonproductive. Skin: Normal color, normal turgor, no icterus, no cyanosis except occasional staged ecchymoses. HEENT: AT/NC, EOMI, PERRLA, dry MM, no carotid bruits or JVD noted. Lungs: Diminished, greater bases, right greater than left, coarse bilaterally, posterior godwin with occasional end expiratory wheeze, mildly increased respiratory rate but no distress, no rales. Heart: Currently regular rate and rhythm; no gallop, rub audible. Abdomen: Soft, thin habitus, NTTP, ND, mildly hyperactive BS, no HSM. Extremities: No cyanosis, clubbing, or edema. Neurological: Patient awake, alert, oriented as noted, cognitive function intactalthough does have underlying dementia history reported; pupils equally reactiveto light and accommodation, cranial nerves grossly normal, moving all 4 extremities, no focal deficits, strength moderately to severely global decrease secondary to acute presentation. Psychiatric: Affect appears flat, fatigued, ill-appearing, no acute evidence of depressive or anxiety feelings but does have underlying history. Results Lab / Micro Data Result Diagrams: 10/20/22 15:55 10/20/22 15:55 Labs: Laboratory Results - last 24 hr 10/20/22 15:55: WBC 14.9 H, RBC 4.55, Hgb 12.7, Hct 41.1, MCV 90.3, MCH 27.9, MCHC 30.9 L, RDW Std Deviation 45.2 H, RDW Coeff of Loki 13.6, Plt Count 282, MPV9.9, Immature Gran % (Auto) 0.500, Neut % (Auto) 89.2 H, Lymph % (Auto) 4.7 L, [place] % (Auto) 4.6, Eos % (Auto) 0.7, Baso % (Auto) 0.3, Absolute Neuts (auto) 13.3 H, Absolute Lymphs (auto) 0.70 L, Nucleated RBC % 0 10/20/22 15:55: PT 25.9 H, INR 2.4 10/20/22 15:55: Sodium 138, Potassium 3.6, Chloride 101, Carbon Dioxide 31.0, Anion Gap 6, BUN 14, Creatinine 0.96, Estim Creat Clear Calc 35.25, Est GFR (MDRD) Af Amer 72, Est GFR (MDRD) Non-Af 60, BUN/Creatinine Ratio 14.6, Glucose 91, Calcium 9.6, Troponin I High Sens 19, Lipase 47 L 10/20/22 15:55: B-Natriuretic Peptide 199.4 H 10/20/22 17:05: Urine Color Yellow, Urine Clarity Clear, Urine pH 7.0, Ur Specific [employer] 1.010, Urine Protein 15 H, Urine Glucose (UA) Normal, Urine Ketones Negative, Urine Occult Blood 25 H, Urine Nitrite Negative, Urine Bilirubin Negative, Urine Urobilinogen Normal, Ur Leukocyte Esterase 25 H, UrineRBC 0-5 SEEN, Urine WBC 0- 5 SEEN, Ur Squamous Epith Cells 0-5 SEEN, Urine Bacteria RARE, Urine Mucus 0 SEEN 10/20/22 18:15: Troponin I High Sens 21 Micro: Microbiology 10/20/22 16:15 Nasal Secretion SARS-CoV-2 & FLU Antigen (Rapid) - Final Radiology Impression Chest/Abdomen/Pelvis CTA 10/20/22 16:09 IMPRESSION: 1. Atherosclerotic changes of the aorta without dissection or aneurysm. 2. No acute cardiopulmonary disease. 3. Large retrocardiac hiatal hernia. 4. Fatty infiltration of the liver. 5. Question large right renal cyst. 6. Status post hysterectomy. 7. Degenerative changes and scoliosis of the thoracolumbar spine with multiple remote appearing compression fractures. Normal contrast-enhanced CT of the chest. Normal contrast-enhanced CT of the abdomen and pelvis. Electronically Signed: Prieto Jauregui DO at 17:50 EDT Reading Location ID and State: [address] [place] [address] Tel [phone], Service support , Chest X-Ray 10/20/22 16:17 IMPRESSION: 1. Evidence of median sternotomy. 2. No acute cardiopulmonary disease or interval change. 3. Hiatal hernia. Electronically Signed: Prieto Jauregui, DO at 16:36 EDT Reading Location ID and State: [address] [place] [address] Tel [phone], Service support , Assessment & Plan Assessment/Plan (1) Pneumonia: PLAN: Plan The patient is a 76 y/o F w/ PMHx: Asthma, HTN, HLD, Dementia unclear type without behavioral disturbance history, HERLINDA with q HS oxygen only not using CPAP orBIPAP, Prediabetes mellitus type II, CKD stage III unclear subtype, Anxiety and Depression, PAF, Chronic diastolic CHF, Valvular Heart Disease s/p AVR mechanical valve, Chronic sinusitis (reported MRSA, pseudomonas), GERD who presents to the [facility] ED on 10/20/22 with history of persistent chest discomfort with pressure-like sensation and dyspnea ongoing for approximately 3 weeks reportedly intermittent with onset when she is exerting herself with lightheadedness and dizziness with sensation that she is going to fall promptingapproximately 10 minutes of rest for recovery with occasional associated nausea without emesis, diaphoresis with no specific recent cough, congestion or increased wheezing however given persistent symptoms prompted ED evaluation although in the ED frequently coughing/wheezing. #1. Acute Hypoxia secondary to Suspected R multilobar Pneumonia (Possible GN/GPgiven Hx Pseudomonas, MRSA infections), Possibly viral etiology with concurrent Acute on Chronic Asthma Exacerbation with concurrent allergic rhinitis: CTPA C/A/P w/ Patchy ground-glass infiltrates anteriorly in the right upper lobe, vague nodular ground-glass density in the superior segment of the right lower lobe, atelectatic changes in the lower lobes due to poor inspiratory effort withelevated hemidiaphragms and large retrocardiac hiatal hernia. Will admit to PCU,maintain on oxygen with wean as tolerated to room air/home oxygen supplementation, continue ATC budesonide, PRN albuterol, maintained on IV Zosyn and Vancomycin given Pseudomonas and MRSA Hx w/ de-escalation as able, maintain on IV solumedrol, encourage HOB, IS parameters w/ pending sputum cultures, full respiratory viral panel, COVID PCR and urine antigens, continue patient home fluticasone as well as Singulair regimen. Procalcitonin requested. Bld cx x 2 obtained in the ED. #2. Chest Pain, possibly related with acute presentation #1: EKG with sinus rhythm with no acute evidence of ischemia, CTPA w/A/P w/ Patchy ground-glass infiltrates anteriorly in the right upper lobe, vague nodular ground-glass density in the superior segment of the right lower lobe, atelectatic changes in the lower lobes due to poor inspiratory effort with elevated hemidiaphragms and large retrocardiac hiatal hernia, troponin initial [address] on a monitored bed to assure no acute myocardial infarction with serial cardiac enzymes and EKGs. Mag pending. FLP pending. ASA, NG, morphine. #3. Chronic diastolic CHF: We will continue patient home aspirin, Coumadin withINR trending, statin, metoprolol, not on ARIADNA inhibitor or ARB, lasix oral regimen. Appears compensated. #4. Known Ascending Thoracic Aortic Aneurysm: Most recent imaging noting ascending thoracic aorta 4.1 x 3.8 cm, encourage continued evaluation and monitoring outpatient. #5. PAF: We will continue patient home regimen amiodarone, metoprolol as well as Coumadin with INR trending, admission INR 2.4. #6. Dementia without behavioral disturbance history: Complicates presentation, maintain on fall precautions, PT/OT/casement consultation for discharge planning. Patient of note has had prior presentations and does have hallucinations with her dementia per report. #7. Hypertension: Continue home regimen including Lasix, metoprolol with hold parameters as needed, PRN hydralazine. #8. Hyperlipidemia: Continue home statin and Zetia regimen. #9. Chronic sinusitis: Prior CT imaging with notable chronic sinus disease withhistory of prior MRSA and Pseudomonas of note with close continued follow-up with ENT. #10. Valvular heart disease: Patient status post AVR x2, most recently with mechanical valve, continue Coumadin with INR trending as noted, INR upon presentation 2.4. 06/07/22 ECHO w/ normal LV systolic function, EF 60%, moderatelyenlarged LA, mild MV stenosis, mild MVI, trivial TVI, stable appearing mechanical aortic valve apparatus, mild aortic stenosis, mild PVI transmitral diastolic flow velocities suggestive of diastolic dysfunction. #11. Chronic Kidney Disease Stage III, unclear subtype: Admission BUN/Cr 14/0.96, baseline renal function 0.9-1.3, repeat BMP in AM. #12. Chronic normocytic anemia/iron deficiency anemia: Admission hemoglobin 12.7, prior baseline noted to be 10-11, stable, continue iron supplementation and trending. #13. GERD: Will continue home PPI regimen. #14. Anxiety and depression: We will continue patient home bupropion, Ativan and paroxetine regimen. #15. DVT prophylaxis: Continue Coumadin with INR trending, admission INR 2.4. #16. CODE status: Patient HCPOA is her who is present and living will is in place. Discussed CODE status at length including difference between FULL code, DNR-CCA and DNR-CC status. Following discussions about the differences in these status, requested DNR-CCA, no intubation. Advanced Care Planning Face to Face Time: 16 minutes. Admission Evaluation Time spent evaluating chart, patient history, patient evaluation, care planning and discussion with specialists: 75 minutes. Charges/Coding Visit Charges Inpatient E&M: 83642 Init Hosp L3 Procedures Hospitalists Procedures: 64429 Advncd Care Plan 30 Min 10/20/222143 <Electronically signed by Faviola Perry MD> Cosigner Signature (if applicable): CC: Dr. Faviola Perry MD; Dr. Kolby Kim MD~ Signed [facility] Work Phone: [phone]) 852-455003-24-[address] Smiley [facility] October 20, 2022 7:39pm Note Date/Time October 20, 2022 3:5 2pm [facility] Medical Records Department [address] [place] [address] Emergency Department Summary 10/20/22 MR#: [id number] Acct: [id number] Name: ELZA CHU Rep #:[id number] : 1945 76 From: Forrest Smiley DO PCP: Dr. Kolby Kim MD Status:ADM I N Location: [place] [address] HPI History of Present Illness Chief Complaint: Shortness of Breath Narrative Narrative: 76-year-old female presenting with chest pressure and shortness of breath for about 3 weeks. She describes it as intermittent. Patient states this happens when she is exerting herself and it does not have to be very vigorous. She states she feels the pressure and very short of breath like she is going to fall. She sits down it takes about 10 minutes to recover. Sometimes she is nauseous, diaphoretic, lightheaded. Patient with history of A-fib, COPD, CAD, mechanical heart valve, thoracic aortic aneurysm on Coumadin. Denies black or bloody stools. Denies hemoptysis. She does not feel as if she is wheezing and needs a breathing treatment. 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 Nonrheumatic aortic valve regurgitation Nonspecific chest pain Obesity Palpitations Severe sepsis Syncope and collapse Home Medications pantoprazole 40 mg tablet,delayed release 40 mg PO BID ACID REFLUX 01/14/15 [History Last Taken 07/07/20] bupropion HCl 150 mg 24 hr tablet, extended release 150 mg PO DAILY DEPRESSION 11/15/15 [History Last Taken 07/07/20] montelukast 10 mg tablet 10 mg PO QHS ALLERGIES 05/03/17 [History Last Taken 07/06/20] potassium chloride 20 mEq tablet,extended release(part/cryst) 20 meq PO DAILY SUPPLEMENT 05/03/17 [History Last Taken 07/06/20] aspirin 81 mg chewable tablet 162 mg PO DAILY HEART HEALTH 09/04/17 [History Last Taken 07/07/20] lorazepam 0.5 mg tablet 0.5 mg PO BID PRN ANXIETY 09/04/17 [History Last Taken 07/07/20] furosemide 40 mg tablet 40 mg PO DAILY WATER PILL ##0 12/06/17 [Rx Last Taken 07/06/20] cholecalciferol (vitamin D3) 1,250 mcg (50,000 unit) capsule 50,000 unit PO FR SUPPLEMENT 06/16/19 [History Last Taken 06/25/20] acetaminophen 650 mg tablet,extended release 650 mg PO Q6H PRN BACK PAIN 07/07/20 [History Last Taken 07/07/20] albuterol sulfate 2.5 mg/3 mL (0.083 %) solution for nebulization 2.5 mg (3 mL) inhalation Q4H PRN #25 vials 05/21/21 [Rx Last Taken Unknown] triamcinolone acetonide 55 mcg nasal spray aerosol (Nasacort) 1 spray intranasalDAILY #16.9 mL 06/10/21 [Rx Last Taken Unknown] albuterol sulfate 90 mcg/actuation aerosol inhaler 2 puff inhalation Q4H PRN shortness of breath or wheezing #8.5 grams 10/04/21 [Rx Last Taken Unknown] famotidine 20 mg tablet 20 mg PO DAILY PRN 11/29/21 [History Last Taken Unknown] ferrous sulfate 325 mg (65 mg iron) tablet 325 mg PO BID 11/29/21 [History Last Taken Unknown] paroxetine HCl 20 mg tablet 10 mg PO BID 11/29/21 [History Last Taken Unknown] warfarin 2.5 mg tablet 4.5 mg PO WEFR blood thinner 11/29/21 [History Last Taken Unknown] warfarin 3 mg tablet 4.5 mg PO SUMOTUTHSA BLOOD THINNER 11/29/21 [History Last Taken Unknown] guaifenesin 1,200 mg tablet, extended release 12 hr 1,200 mg PO Q12H #60 tabs 04/04/22 [Rx Last Taken Unknown] metoprolol succinate 50 mg tablet,extended release 24 hr See Rx Instructions .Route .COMPLEX #90 tabs 07/03/22 [Rx Last Taken Unknown] doxycycline monohydrate 100 mg capsule 100 mg PO BID #14 CAPSULES 08/07/22 [Rx Last Taken Unknown] fluticasone furoate 200 mcg-vilanterol 25 mcg/dose inhalation powder (Breo Ellipta) 1 inh inhalation DAILY #60 ea 08/07/22 [Rx Last Taken Unknown] prednisone 20 mg tablet 40 mg PO DAILY #14 TABLETS 08/07/22 [Rx Last Taken Unknown] amiodarone 200 mg tablet 100 mg PO DAILY #45 tabs 08/28/22 [Rx Last Taken Unknown] doxycycline monohydrate 100 mg capsule 100 mg PO BID #14 CAPSULES 09/03/22 [Rx Last Taken Unknown] prednisone 20 mg tablet 60 mg PO DAILY #15 TABLETS 09/03/22 [Rx Last Taken Unknown] ezetimibe 10 mg tablet 10 mg PO DAILY #90 tabs 09/25/22 [Rx Last Taken Unknown] pravastatin 80 mg tablet 80 mg PO QHS CHOLESTEROL LOWERING #90 tabs 09/25/22 [Rx Last Taken Unknown] tiotropium bromide 2.5 mcg/actuation mist for inhalation (Spiriva Respimat) 2 puff inhalation QDAY #3 ea 10/17/22 [Rx Last Taken Unknown] Allergy/AdvReac Type Severity Reaction Status Date / Time donepezil Allergy Severe shortness Verified 10/20/22 13:26 of breath risperidone Allergy Severe Confusion Verified 10/20/22 13:26 Sulfa (Sulfonamide Allergy Swelling Verified 10/20/22 13:26 Antibiotics) celecoxib [From Celebrex] AdvReac Severe Swelling Verified 10/20/22 13:26 dextromethorphan AdvReac Severe hallucinati Verified 10/20/22 13:26 [From Delsym] on adhesive AdvReac blisters Verified 10/20/22 13:26 codeine AdvReac Itching Verified 10/20/22 13:26 levofloxacin [From Levaquin] AdvReac pain in Verified 10/20/22 13:26 legs and swelling lisinopril AdvReac cough Verified 10/20/22 13:26 oxycodone [Oxycodone] AdvReac Itching Verified 10/20/22 13:26 oxycodone HCl [From Percocet] AdvReac Itching Verified 10/20/22 13:26 Penicillins AdvReac heart Verified 10/20/22 13:26 palpitations prochlorperazine edisylate AdvReac Low blood Verified 10/20/22 13:26 [From Compazine] pressure prochlorperazine maleate AdvReac Low blood Verified 10/20/22 13:26 [From Compazine] pressure tramadol HCl [From Ultram] AdvReac Itching Verified 10/20/22 13:26 Family History Mother Arthritis CAD (coronary artery disease) Father Arthritis High cholesterol CAD (coronary artery disease) Sister Diabetes High cholesterol Hypertension Brother Diabetes High cholesterol Hypertension Surgical History H/O aortic valve replacement History of back surgery History of foot surgery History of hysterectomy History of mechanical aortic valve replacement (~10/07/13) History of sinus surgery Social History household members: spouse Smoking Status: Never smoker alcohol intake: never substance use type: does not use caffeine: Yes Type: coffee what type of physical activity do you participate in: none seatbelt use: always do you feel safe at home: Yes ROS ROS ED Constitutional Constitutional ED: Denies chills Eyes Eyes: Denies blurry vision or change in vision ENT ENT ED: Denies rhinorrhea or sore throat Cardiovascular Cardiovascular: Reports as per HPI Respiratory/Chest Respiratory/Chest: Reports cough, dyspnea and dyspnea on exertion Gastrointestinal Gastrointestinal: Denies abdominal pain or constipation Genitourinary Genitourinary ED: Denies dysuria or hematuria Musculoskeletal Musculoskeletal: Denies arthralgias Integumentary Denies abscess or Abrasions Neurologic Neurologic: Denies headache(s) or paresthesias Psychiatric Psychiatric: Denies anxiety EXAM Physical Exam Const Vital Signs: 10/20/22 13:26 10/20/22 15:54 10/20/22 15:54 Temperature 95.5 F L 100.3 F H Temperature Source Temporal Oral Pulse Rate 87 83 Respiratory Rate 22 H 18 Respiratory Effort Respiratory Depth Respiratory Pattern Blood Pressure 160/73 H 154/88 H Blood Pressure Mean 102 110 Pulse Ox 94 89 92 Oxygen Delivery Method Room Air Room Air Nasal Cannula Oxygen Flow Rate (L/min) 2 10/20/22 16:31 10/20/22 18:00 10/20/22 19:15 Temperature 98.5 F 98.7 F Temperature Source Oral Temporal Pulse Rate 70 79 Respiratory Rate 17 16 Respiratory Effort Normal Non-Labored Respiratory Depth Normal Respiratory Pattern Normal Blood Pressure 137/63 H 146/72 H Blood Pressure Mean 87 96 Pulse Ox 92 94 Oxygen Delivery Method Nasal Cannula Nasal Cannula Oxygen Flow Rate (L/min) 2 2 10/20/22 19:15 Temperature Temperature Source Pulse Rate Respiratory Rate 15 Respiratory Effort Respiratory Depth Respiratory Pattern Blood Pressure Blood Pressure Mean Pulse Ox Oxygen Delivery Method Oxygen Flow Rate (L/min) Positive well nourished General Appearance ED: Negative for pallor HEENT Reports moist mucous membranes normocephalic and atraumatic Eyes PERRL and EOMs intact bilaterally General Eye ED: Yes pale conjunctiva Chest Wall inspection of chest normal Resp normal respiratory effort Resp Narrative: Coarse breath sounds well. No wheezing. Cardio regular rate and regular rhythm GI normal to inspection, nondistended, normoactive bowel sounds Neuro oriented x3 and CN's II-XII intact bilaterally Sensorium / Orientation: awake and alert Motor Exam: strength 5/5 throughout Psych mental status grossly normal Skin no rashes or lesions noted General Skin Exam: Negative for jaundice or pallor MDM MDM MDM Narrative Medical decision making narrative: Patient presenting with chest pain and shortness of breath with exertion. Differential includes but is not limited to CHF, unstable and, aortic dissection, pneumonia, pneumothorax, muscle strain, costochondritis. PE is considered but she is on Coumadin and has been therapeutic. We will check an INR. CBC to assess white blood count, hemoglobin, platelets, differential. CMPto assess liver function, renal function, electrolytes, glucose, anion gap. High-sensitivity troponin will also be added as well as a BNP. Chest x-ray willbe obtained as well as EKG. EKG on my interpretation shows a normal sinus rhythm with a ventricular rate of 82 bpm. [place] interval 156 ms, QRS duration 80 ms, QT/QTc 390/455. I was called back to the room because the patient stated she was having abdominal pain she describes this as achy She is pointing to the middle of her abdomen. She states is not currently painful. She states that the pain in her abdomen typically comes with the pain in her chest. With history of aortic aneurysm I will obtain a CTA of the chest abdomen pelvis. I was then called back to the room to assess her because she developed a fever of 100.3. Rapid COVID and influenza will be added. CBC returned with a white blood cell count of 14.9 with a left shift. Hemoglobin macular stable. Platelets are normal. Patient on Coumadin and her INR is therapeutic at 2.4 so I have low suspicion for PE. Renal function and electrolytes are normal. Lipase is negative at 37. LFTs were ordered and are pending. Chest x-ray on my interpretation does not show any acute cardiopulmonary process. Hiatal hernia is noted. Radiologist services and agrees. BNP is slightly elevated without evidence of CHF. High-sensitivity troponin is 19 and repeat is 21. Patient noted to be home hypoxic. She was 87%in bed and was placed on 2 L. Subsequently we turned the oxygen off and we had her ambulated in the hallway and she dropped to 80% per nursing. Patient not wheezing on exam but with her history I gave her a breathing treatment and Solu-Medrol. CTA of the chest does not show any dissection or PE but does show patchy groundglass infiltrate in the right upper lobe and a nodular density in the lower lobe. Given patient's hypoxia and white blood cell count. I do believe she needs antibiotics. She has history of Pseudomonas and a history of MRSA so after speaking with the hospitalist we determined we would start vancomycin and Zosyn. Respiratory panel was also sent as well as a COVID PCR. Patient admitted in stable condition. Impression: 1. Hypoxia 2. Chest pain 3. pneumonia 4. leukocytosis Lab Data Attestation: I reviewed the patient's lab results. Labs: Laboratory Results - last 24 hr 10/20/22 10/20/22 10/20/22 15:55 15:55 15:55 WBC 14.9 H RBC 4.55 Hgb 12.7 Hct 41.1 MCV 90.3 MCH 27.9 MCHC 30.9 L RDW Std Deviation 45.2 H RDW Coeff of Loki 13.6 Plt Count 282 MPV 9.9 Immature Gran % (Auto) 0.500 Neut % (Auto) 89.2 H Lymph % (Auto) 4.7 L [place] % (Auto) 4.6 Eos % (Auto) 0.7 Baso % (Auto) 0.3 Absolute Neuts (auto) 13.3 H Absolute Lymphs (auto) 0.70 L Nucleated RBC % 0 PT 25.9 H INR 2.4 Sodium 138 Potassium 3.6 Chloride 101 Carbon Dioxide 31.0 Anion Gap 6 BUN 14 Creatinine 0.96 Estim Creat Clear Calc 35.25 Est GFR (MDRD) Af Amer 72 Est GFR (MDRD) Non-Af 60 BUN/Creatinine Ratio 14.6 Glucose 91 Calcium 9.6 Troponin I High Sens 19 B-Natriuretic Peptide Lipase 47 L Urine Color Urine Clarity Urine pH Ur [employer] Urine Protein Urine Glucose (UA) Urine Ketones Urine Occult Blood Urine Nitrite Urine Bilirubin Urine Urobilinogen Ur Leukocyte Esterase Urine RBC Urine WBC Ur Squamous Epith Cells Urine Bacteria Urine Mucus 10/20/22 10/20/22 10/20/22 15:55 17:05 18:15 WBC RBC Hgb Hct MCV MCH MCHC RDW Std Deviation RDW Coeff of Loki Plt Count MPV Immature Gran % (Auto) Neut % (Auto) Lymph % (Auto) [place] % (Auto) Eos % (Auto) Baso % (Auto) Absolute Neuts (auto) Absolute Lymphs (auto) Nucleated RBC % PT INR Sodium Potassium Chloride Carbon Dioxide Anion Gap BUN Creatinine Estim Creat Clear Calc Est GFR (MDRD) Af Amer Est GFR (MDRD) Non-Af BUN/Creatinine Ratio Glucose Calcium Troponin I High Sens 21 B-Natriuretic Peptide 199.4 H Lipase Urine Color Yellow Urine Clarity Clear Urine pH 7.0 Ur [employer] 1.010 Urine Protein 15 H Urine Glucose (UA) Normal Urine Ketones Negative Urine Occult Blood 25 H Urine Nitrite Negative Urine Bilirubin Negative Urine Urobilinogen Normal Ur Leukocyte Esterase 25 H Urine RBC 0-5 SEEN Urine WBC 0-5 SEEN Ur Squamous Epith Cells 0-5 SEEN Urine Bacteria RARE Urine Mucus 0 SEEN Radiography Diagnostic Testing: Clinical Impression(s) from Imaging Studies Chest/Abdomen/Pelvis CTA 10/20/22 16:09 IMPRESSION: 1. Atherosclerotic changes of the aorta without dissection or aneurysm. 2. No acute cardiopulmonary disease. 3. Large retrocardiac hiatal hernia. 4. Fatty infiltration of the liver. 5. Question large right renal cyst. 6. Status post hysterectomy. 7. Degenerative changes and scoliosis of the thoracolumbar spine with multiple remote appearing compression fractures. Normal contrast-enhanced CT of the chest. Normal contrast-enhanced CT of the abdomen and pelvis. Electronically Signed: Prieto Jauregui DO at 17:50 EDT Reading Location ID and State: [facility] / [place] Tel [phone], Service support , Chest X-Ray 10/20/22 16:17 IMPRESSION: 1. Evidence of median sternotomy. 2. No acute cardiopulmonary disease or interval change. 3. Hiatal hernia. Electronically Signed: Prieto Jauregui DO at 16:36 EDT Reading Location ID and State: [facility] / [place] Tel [phone], Service support , Discharge Plan Triage Chief Complaint: Shortness of Breath Other Complaint: Cough ED Provider: Forrest Smiley Dx/Rx/DC Orders Primary Care Provider: Kolby Kim What to do if you have Problems For any increased pain, shortness of breath, bleeding, nausea or vomiting, chestpain, or any unexpected problems, contact your Primary Care Provider. Call [facility] ([phone]) or report to the closest Emergency Room. Call 911 if necessary. 10/20/221938 <Electronically signed by Forrest Smiley DO> Cosigner Signature (if applicable): CC: Dr. Kolby Kim MD ~ Signed [facility] Work Phone: [phone]) 244-353303-24-[address] Smiley [facility] October 20, 2022 7:39pm Note Date/Time October 20, 2022 3:5 2pm [facility] Medical Records Department [address] [place] [address] Emergency Department Summary 10/20/22 MR#: [id number] Acct: [id number] Name: ELZA CHU Rep #:[id number] : 1945 76 From: Forrest Smiley DO PCP: Dr. Kolby Kim MD Status:ADM I N Location: [address] History of Present Illness Chief Complaint: Shortness of Breath Narrative Narrative: 76-year-old female presenting with chest pressure and shortness of breath for about 3 weeks. She describes it as intermittent. Patient states this happens when she is exerting herself and it does not have to be very vigorous. She states she feels the pressure and very short of breath like she is going to fall. She sits down it takes about 10 minutes to recover. Sometimes she is nauseous, diaphoretic, lightheaded. Patient with history of A-fib, COPD, CAD, mechanical heart valve, thoracic aortic aneurysm on Coumadin. Denies black or bloody stools. Denies hemoptysis. She does not feel as if she is wheezing and needs a breathing treatment. 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 Nonrheumatic aortic valve regurgitation Nonspecific chest pain Obesity Palpitations Severe sepsis Syncope and collapse Home Medications pantoprazole 40 mg tablet,delayed release 40 mg PO BID ACID REFLUX 01/14/15 [History Last Taken 07/07/20] bupropion HCl 150 mg 24 hr tablet, extended release 150 mg PO DAILY DEPRESSION 11/15/15 [History Last Taken 07/07/20] montelukast 10 mg tablet 10 mg PO QHS ALLERGIES 05/03/17 [History Last Taken 07/06/20] potassium chloride 20 mEq tablet,extended release(part/cryst) 20 meq PO DAILY SUPPLEMENT 05/03/17 [History Last Taken 07/06/20] aspirin 81 mg chewable tablet 162 mg PO DAILY HEART HEALTH 09/04/17 [History Last Taken 07/07/20] lorazepam 0.5 mg tablet 0.5 mg PO BID PRN ANXIETY 09/04/17 [History Last Taken 07/07/20] furosemide 40 mg tablet 40 mg PO DAILY WATER PILL ##0 12/06/17 [Rx Last Taken 07/06/20] cholecalciferol (vitamin D3) 1,250 mcg (50,000 unit) capsule 50,000 unit PO FR SUPPLEMENT 06/16/19 [History Last Taken 06/25/20] acetaminophen 650 mg tablet,extended release 650 mg PO Q6H PRN BACK PAIN 07/07/20 [History Last Taken 07/07/20] albuterol sulfate 2.5 mg/3 mL (0.083 %) solution for nebulization 2.5 mg (3 mL) inhalation Q4H PRN #25 vials 05/21/21 [Rx Last Taken Unknown] triamcinolone acetonide 55 mcg nasal spray aerosol (Nasacort) 1 spray intranasalDAILY #16.9 mL 06/10/21 [Rx Last Taken Unknown] albuterol sulfate 90 mcg/actuation aerosol inhaler 2 puff inhalation Q4H PRN shortness of breath or wheezing #8.5 grams 10/04/21 [Rx Last Taken Unknown] famotidine 20 mg tablet 20 mg PO DAILY PRN 11/29/21 [History Last Taken Unknown] ferrous sulfate 325 mg (65 mg iron) tablet 325 mg PO BID 11/29/21 [History Last Taken Unknown] paroxetine HCl 20 mg tablet 10 mg PO BID 11/29/21 [History Last Taken Unknown] warfarin 2.5 mg tablet 4.5 mg PO WEFR blood thinner 11/29/21 [History Last Taken Unknown] warfarin 3 mg tablet 4.5 mg PO SUMOTUTHSA BLOOD THINNER 11/29/21 [History Last Taken Unknown] guaifenesin 1,200 mg tablet, extended release 12 hr 1,200 mg PO Q12H #60 tabs 04/04/22 [Rx Last Taken Unknown] metoprolol succinate 50 mg tablet,extended release 24 hr See Rx Instructions .Route .COMPLEX #90 tabs 07/03/22 [Rx Last Taken Unknown] doxycycline monohydrate 100 mg capsule 100 mg PO BID #14 CAPSULES 08/07/22 [Rx Last Taken Unknown] fluticasone furoate 200 mcg-vilanterol 25 mcg/dose inhalation powder (Breo Ellipta) 1 inh inhalation DAILY #60 ea 08/07/22 [Rx Last Taken Unknown] prednisone 20 mg tablet 40 mg PO DAILY #14 TABLETS 08/07/22 [Rx Last Taken Unknown] amiodarone 200 mg tablet 100 mg PO DAILY #45 tabs 08/28/22 [Rx Last Taken Unknown] doxycycline monohydrate 100 mg capsule 100 mg PO BID #14 CAPSULES 09/03/22 [Rx Last Taken Unknown] prednisone 20 mg tablet 60 mg PO DAILY #15 TABLETS 09/03/22 [Rx Last Taken Unknown] ezetimibe 10 mg tablet 10 mg PO DAILY #90 tabs 09/25/22 [Rx Last Taken Unknown] pravastatin 80 mg tablet 80 mg PO QHS CHOLESTEROL LOWERING #90 tabs 09/25/22 [Rx Last Taken Unknown] tiotropium bromide 2.5 mcg/actuation mist for inhalation (Spiriva Respimat) 2 puff inhalation QDAY #3 ea 10/17/22 [Rx Last Taken Unknown] Allergy/AdvReac Type Severity Reaction Status Date / Time donepezil Allergy Severe shortness Verified 10/20/22 13:26 of breath risperidone Allergy Severe Confusion Verified 10/20/22 13:26 Sulfa (Sulfonamide Allergy Swelling Verified 10/20/22 13:26 Antibiotics) celecoxib [From Celebrex] AdvReac Severe Swelling Verified 10/20/22 13:26 dextromethorphan AdvReac Severe hallucinati Verified 10/20/22 13:26 [From Delsym] on adhesive AdvReac blisters Verified 10/20/22 13:26 codeine AdvReac Itching Verified 10/20/22 13:26 levofloxacin [From Levaquin] AdvReac pain in Verified 10/20/22 13:26 legs and swelling lisinopril AdvReac cough Verified 10/20/22 13:26 oxycodone [Oxycodone] AdvReac Itching Verified 10/20/22 13:26 oxycodone HCl [From Percocet] AdvReac Itching Verified 10/20/22 13:26 Penicillins AdvReac heart Verified 10/20/22 13:26 palpitations prochlorperazine edisylate AdvReac Low blood Verified 10/20/22 13:26 [From Compazine] pressure prochlorperazine maleate AdvReac Low blood Verified 10/20/22 13:26 [From Compazine] pressure tramadol HCl [From Ultram] AdvReac Itching Verified 10/20/22 13:26 Family History Mother Arthritis CAD (coronary artery disease) Father Arthritis High cholesterol CAD (coronary artery disease) Sister Diabetes High cholesterol Hypertension Brother Diabetes High cholesterol Hypertension Surgical History H/O aortic valve replacement History of back surgery History of foot surgery History of hysterectomy History of mechanical aortic valve replacement (~10/07/13) History of sinus surgery Social History household members: spouse Smoking Status: Never smoker alcohol intake: never substance use type: does not use caffeine: Yes Type: coffee what type of physical activity do you participate in: none seatbelt use: always do you feel safe at home: Yes ROS ROS ED Constitutional Constitutional ED: Denies chills Eyes Eyes: Denies blurry vision or change in vision ENT ENT ED: Denies rhinorrhea or sore throat Cardiovascular Cardiovascular: Reports as per HPI Respiratory/Chest Respiratory/Chest: Reports cough, dyspnea and dyspnea on exertion Gastrointestinal Gastrointestinal: Denies abdominal pain or constipation Genitourinary Genitourinary ED: Denies dysuria or hematuria Musculoskeletal Musculoskeletal: Denies arthralgias Integumentary Denies abscess or Abrasions Neurologic Neurologic: Denies headache(s) or paresthesias Psychiatric Psychiatric: Denies anxiety EXAM Physical Exam Const Vital Signs: 10/20/22 13:26 10/20/22 15:54 10/20/22 15:54 Temperature 95.5 F L 100.3 F H Temperature Source Temporal Oral Pulse Rate 87 83 Respiratory Rate 22 H 18 Respiratory Effort Respiratory Depth Respiratory Pattern Blood Pressure 160/73 H 154/88 H Blood Pressure Mean 102 110 Pulse Ox 94 89 92 Oxygen Delivery Method Room Air Room Air Nasal Cannula Oxygen Flow Rate (L/min) 2 10/20/22 16:31 10/20/22 18:00 10/20/22 19:15 Temperature 98.5 F 98.7 F Temperature Source Oral Temporal Pulse Rate 70 79 Respiratory Rate 17 16 Respiratory Effort Normal Non-Labored Respiratory Depth Normal Respiratory Pattern Normal Blood Pressure 137/63 H 146/72 H Blood Pressure Mean 87 96 Pulse Ox 92 94 Oxygen Delivery Method Nasal Cannula Nasal Cannula Oxygen Flow Rate (L/min) 2 2 10/20/22 19:15 Temperature Temperature Source Pulse Rate Respiratory Rate 15 Respiratory Effort Respiratory Depth Respiratory Pattern Blood Pressure Blood Pressure Mean Pulse Ox Oxygen Delivery Method Oxygen Flow Rate (L/min) Positive well nourished General Appearance ED: Negative for pallor HEENT Reports moist mucous membranes normocephalic and atraumatic Eyes PERRL and EOMs intact bilaterally General Eye ED: Yes pale conjunctiva Chest Wall inspection of chest normal Resp normal respiratory effort Resp Narrative: Coarse breath sounds well. No wheezing. Cardio regular rate and regular rhythm GI normal to inspection, nondistended, normoactive bowel sounds Neuro oriented x3 and CN's II-XII intact bilaterally Sensorium / Orientation: awake and alert Motor Exam: strength 5/5 throughout Psych mental status grossly normal Skin no rashes or lesions noted General Skin Exam: Negative for jaundice or pallor MDM MDM MDM Narrative Medical decision making narrative: Patient presenting with chest pain and shortness of breath with exertion. Differential includes but is not limited to CHF, unstable and, aortic dissection, pneumonia, pneumothorax, muscle strain, costochondritis. PE is considered but she is on Coumadin and has been therapeutic. We will check an INR. CBC to assess white blood count, hemoglobin, platelets, differential. CMPto assess liver function, renal function, electrolytes, glucose, anion gap. High-sensitivity troponin will also be added as well as a BNP. Chest x-ray willbe obtained as well as EKG. EKG on my interpretation shows a normal sinus rhythm with a ventricular rate of 82 bpm. AZ interval 156 ms, QRS duration 80 ms, QT/QTc 390/455. I was called back to the room because the patient stated she was having abdominal pain she describes this as achy She is pointing to the middle of her abdomen. She states is not currently painful. She states that the pain in her abdomen typically comes with the pain in her chest. With history of aortic aneurysm I will obtain a CTA of the chest abdomen pelvis. I was then called back to the room to assess her because she developed a fever of 100.3. Rapid COVID and influenza will be added. CBC returned with a white blood cell count of 14.9 with a left shift. Hemoglobin macular stable. Platelets are normal. Patient on Coumadin and her INR is therapeutic at 2.4 so I have low suspicion for PE. Renal function and electrolytes are normal. Lipase is negative at 37. LFTs were ordered and are pending. Chest x-ray on my interpretation does not show any acute cardiopulmonary process. Hiatal hernia is noted. Radiologist services and agrees. BNP is slightly elevated without evidence of CHF. High-sensitivity troponin is 19 and repeat is 21. Patient noted to be home hypoxic. She was 87%in bed and was placed on 2 L. Subsequently we turned the oxygen off and we had her ambulated in the hallway and she dropped to 80% per nursing. Patient not wheezing on exam but with her history I gave her a breathing treatment and Solu-Medrol. CTA of the chest does not show any dissection or PE but does show patchy groundglass infiltrate in the right upper lobe and a nodular density in the lower lobe. Given patient's hypoxia and white blood cell count. I do believe she needs antibiotics. She has history of Pseudomonas and a history of MRSA so after speaking with the hospitalist we determined we would start vancomycin and Zosyn. Respiratory panel was also sent as well as a COVID PCR. Patient admitted in stable condition. Impression: 1. Hypoxia 2. Chest pain 3. pneumonia 4. leukocytosis Lab Data Attestation: I reviewed the patient's lab results. Labs: Laboratory Results - last 24 hr 10/20/22 10/20/22 10/20/22 15:55 15:55 15:55 WBC 14.9 H RBC 4.55 Hgb 12.7 Hct 41.1 MCV 90.3 MCH 27.9 MCHC 30.9 L RDW Std Deviation 45.2 H RDW Coeff of Loki 13.6 Plt Count 282 MPV 9.9 Immature Gran % (Auto) 0.500 Neut % (Auto) 89.2 H Lymph % (Auto) 4.7 L [place] % (Auto) 4.6 Eos % (Auto) 0.7 Baso % (Auto) 0.3 Absolute Neuts (auto) 13.3 H Absolute Lymphs (auto) 0.70 L Nucleated RBC % 0 PT 25.9 H INR 2.4 Sodium 138 Potassium 3.6 Chloride 101 Carbon Dioxide 31.0 Anion Gap 6 BUN 14 Creatinine 0.96 Estim Creat Clear Calc 35.25 Est GFR (MDRD) Af Amer 72 Est GFR (MDRD) Non-Af 60 BUN/Creatinine Ratio 14.6 Glucose 91 Calcium 9.6 Troponin I High Sens 19 B-Natriuretic Peptide Lipase 47 L Urine Color Urine Clarity Urine pH Ur [employer] Urine Protein Urine Glucose (UA) Urine Ketones Urine Occult Blood Urine Nitrite Urine Bilirubin Urine Urobilinogen Ur Leukocyte Esterase Urine RBC Urine WBC Ur Squamous Epith Cells Urine Bacteria Urine Mucus 10/20/22 10/20/22 10/20/22 15:55 17:05 18:15 WBC RBC Hgb Hct MCV MCH MCHC RDW Std Deviation RDW Coeff of Loki Plt Count MPV Immature Gran % (Auto) Neut % (Auto) Lymph % (Auto) [place] % (Auto) Eos % (Auto) Baso % (Auto) Absolute Neuts (auto) Absolute Lymphs (auto) Nucleated RBC % PT INR Sodium Potassium Chloride Carbon Dioxide Anion Gap BUN Creatinine Estim Creat Clear Calc Est GFR (MDRD) Af Amer Est GFR (MDRD) Non-Af BUN/Creatinine Ratio Glucose Calcium Troponin I High Sens 21 B-Natriuretic Peptide 199.4 H Lipase Urine Color Yellow Urine Clarity Clear Urine pH 7.0 Ur [employer] 1.010 Urine Protein 15 H Urine Glucose (UA) Normal Urine Ketones Negative Urine Occult Blood 25 H Urine Nitrite Negative Urine Bilirubin Negative Urine Urobilinogen Normal Ur Leukocyte Esterase 25 H Urine RBC 0-5 SEEN Urine WBC 0-5 SEEN Ur Squamous Epith Cells 0-5 SEEN Urine Bacteria RARE Urine Mucus 0 SEEN Radiography Diagnostic Testing: Clinical Impression(s) from Imaging Studies Chest/Abdomen/Pelvis CTA 10/20/22 16:09 IMPRESSION: 1. Atherosclerotic changes of the aorta without dissection or aneurysm. 2. No acute cardiopulmonary disease. 3. Large retrocardiac hiatal hernia. 4. Fatty infiltration of the liver. 5. Question large right renal cyst. 6. Status post hysterectomy. 7. Degenerative changes and scoliosis of the thoracolumbar spine with multiple remote appearing compression fractures. Normal contrast-enhanced CT of the chest. Normal contrast-enhanced CT of the abdomen and pelvis. Electronically Signed: Prieto Jauregui DO at 17:50 EDT Reading Location ID and State: [facility] / [place] Tel [phone], Service support , Chest X-Ray 10/20/22 16:17 IMPRESSION: 1. Evidence of median sternotomy. 2. No acute cardiopulmonary disease or interval change. 3. Hiatal hernia. Electronically Signed: Prieto Jauregui DO at 16:36 EDT Reading Location ID and State: [facility] / [place] Tel [phone], Service support , Discharge Plan Triage Chief Complaint: Shortness of Breath Other Complaint: Cough ED Provider: Forrest Smiley Dx/Rx/DC Orders Primary Care Provider: Kolby Kim What to do if you have Problems For any increased pain, shortness of breath, bleeding, nausea or vomiting, chestpain, or any unexpected problems, contact your Primary Care Provider. Call [facility] ([phone]) or report to the closest Emergency Room. Call 911 if necessary. 10/20/221938 <Electronically signed by Forrest Smiley DO> Cosigner Signature (if applicable): CC: Dr. Kolby Kim MD ~ Signed [facility] Work Phone: [phone] Miscellaneous Notes* Telephone Encounter - Lucretia Fabian RN - 10/20/2022 12:49 PM EDT Patient call in for shortness of breath. Patient state that she has been short of breath with exertion all day. Patient states that she woke up not feeling right. Patient is noticeably short of breath when talking to this nurse. Patient states that she has not been feeling well for over a week. Patient has checked her O2 levels and it has not gotten over 91 (states that she normally runs between 95-96). Patient does have runny nose and does have dizziness when walking. Nurse Triage assessment completed with protocol recommending for disposition of Go to ED now. Care advice reviewed with patient, patient stated understanding. Patient will have family member take her to ED. Reason for Disposition [1] MODERATE difficulty breathing (e.g., speaks in phrases, SOB even at rest, pulse 100-120) AND [2] NEW-onset or WORSE than normal Answer Assessment - Initial Assessment Questions 1. RESPIRATORY STATUS: Short of breath with activity; Had breathing treatment and 2 inhalers this morning 2. ONSET: When she woke up this morning states that she was not feeling well 3. PATTERN Comes and goes with activity. 4. SEVERITY: Moderate short of breath, sounds short of breath when sitting. 5. RECURRENT SYMPTOM: Happened a lot lately, has not done anything or said anything thought it would go away. 6. CARDIAC HISTORY: Artificial aortic heart valve 7. LUNG HISTORY: COPD; 8. CAUSE: Unsure 9. OTHER SYMPTOMS: Dizziness; constant runny nose 10. O2 SATURATION MONITOR: O2 Level at 91% Usually runs 95-96 Protocols used: Breathing [id number] * Telephone Encounter - Radha Hughes - 10/20/2022 12:42 PM EDT Patient called to report that she has not been feeling well and that she is unable to get her PulseOx past 91. Patient demographics were verified then she was transferred to speak with a triage nurse. documented in this encounterWhite Hospital03-20-2023 Miscellaneous Notes* Telephone Encounter - Jas Harrell PA-C - 10/16/2022 5:17 PM EDT * Telephone Encounter - Gretchen Gilliland LPN - 10/16/2022 2:54 PM EDT Prednisone completed last week per spouse. Gretchen Gilliland LPN * Telephone Encounter - Eugenia Long LPN - 10/10/2022 4:18 PM EDT Pt is calling back in regards to following result message: Hi Pat, Your inflammatory markers are elevated in a borderline range. How are you feeling with the prednisone? ... Pt reports she is doing much better on prednisone. Eugenia Long LPN documented in this encounterWhite Hospital03-20-2023 Miscellaneous Notes* Telephone Encounter - Monique Rose RN - 10/16/2022 4:11 PM EDT Patient and spouse both on phone and informed of message below. Patient states she currently breaks her paxil tablet in half and takes a half in the morning and a half in the evening because if she takes a whole pill at once, she will eat all day long. Patient reluctant to increase the Paxil due to this. Pt's says he would like to have patient try taking a whole paxil tablet daily, and not take a half tab twice a day, to see if this helps her anxiety in any way and will let PCP office know if this helps. Monique Rose RN * Telephone Encounter - Kolby Kim MD - 10/16/2022 3:39 PM EDT Would attempt to limit increasing that med. Is addictive and suppresses her breathing. We can increase her paxil. Are they willling? * Telephone Encounter - Gretchen Oksana Gilliland LPN - 10/16/2022 2:56 PM EDT Spouse calling to let you know pt is having increased anxiety and she takes Lorazepam 1/2 tablet twice a day and they are wondering with the increased anxiety if she could take 1 full tablet in am and then 1/2 at bedtime. Please advise spouse Gretchen Oksana Gilliland LPN documented in this encounterWhite Hospital03-16-2023 History of Present illness Narrative* Earlene Perez LPN - 10/12/2022 2:36 PM EDT Patient was notified and verbalizes understanding of instructions. * Kolby Kim MD - 10/12/2022 1:43 PM EDT Hold today. Recheck inr in am-get drawn * Tia Mock RN - 10/12/2022 1:09 PM EDT patient had inr completed at [facility] patients inr is 5.9 (patients inr range is 2.5-3.5) patient is currently taking 4.5mg Wed and 2.5mg all other days patients last dose change was on 09/22/22 due to a high level of 4.1 (dose at that time was 4.5mg Tues,Thurs and 2.5mg all other days) patient has had a change in medication as she just completed prednisone yesterday and no miss dosesand no change in diet FYI- patient has bee instructed to hold coumadin until contact Advised patient that they would be contacted regarding medication dose and when to follow up after information is reviewed by provider. After provider review please contact the patient with information and schedule follow up appointment with coumadin clinic. ok to leave a detailed message if no answer FYI- coumadin clinic is closed on Sunday and Sunday documented in this encounterWhite Hospital03-16-2023 Miscellaneous Notes* Telephone Encounter - MAUDE Myers - 10/12/2022 8:42 AM EDT Faxed the [facility] medical form to [phone] Chloe Patrick Mud Mixer Helper to Dr. Virk, Dr. Loomis, Kait Modi PA-C, Workers Compensation [facility] P: [id number] / F: [phone] / documented in this encounterWhite Hospital03-14-2023 Miscellaneous Notes* Telephone Encounter - MAUDE Myers - 10/10/2022 9:43 AM EDT Message sent to Felipe to call and schedule Chloe Patrick [place] to Dr. Virk, Dr. Loomis, Kait Modi PA-C, Workers [facility] P: [id number] / F: [phone] / * Telephone Encounter - MAUDE Myers - 10/10/2022 9:39 AM EDT Medical consent to stop taking Coumadin (will need to bridge with Lovenox) for 5 days signed by on 10/09/2022. The consent form was received on 10/10/2022 and is scanned into the chart. Good until 03/2023 Chloe Patrick [place] to Dr. Virk, Kait IsbellC, Workers Compensation [facility] P: [id number] / F: [phone] / [email or web address] documented in this encounterWhite Hospital03-10-2023 Miscellaneous Notes* Telephone Encounter - Mary Power - 10/06/2022 9:50 AM EST Called PT spoke to her is still feeling very overwhelmed with Pain Management appointments, she will call back to schedule. Mary SANTORO * Telephone Encounter - Lucretia Fabian RN - 10/04/2022 4:57 PM EST Patient calls and notified of order being placed. Patient voiced understanding. Patient is feeling overwhelmed today after pain management appointment and not wanting to schedule at this time. Pleasehelp patient schedule appointment in next couple of days. Lucretia Fabian RN * Telephone Encounter - Earlene Perez LPN - 10/04/2022 4:10 PM EST After finishing patient chart from visit and reviewing information Michael would like patient to have CT scan completed. Please schedule CT chest w/ IVCON Thanks, Michael Harrell PA-C Left message for patient to contact office and speak with nurse to get information. documented in this encounterWhite Hospital03-08-2023 NoteHNO ID: [id number] Author: Vandana Sims Service: ? Author Type: ? Type: Progress Notes Filed: 10/08/2022 1:52 PM Note Text: Review of Systems Constitutional: Negative for activity change, chills, fever and unexpected weight change. Gastrointestinal: Negative for bowel retention or incontinence Genitourinary: Negative for difficulty urinating. Negative for bladder retention or incontinence Musculoskeletal: Positive for arthralgias, back pain, gait problem and neck pain. Negative for joint swelling, myalgias and neck stiffness. Neurological: Positive for weakness. Negative for numbness and headaches. Psychiatric/Behavioral: Positive for dysphoric mood and sleep disturbance. Negative for suicidal ideas. The patient is not nervous/anxious.[facility]03-08-2023 NoteHNO ID: [id number] Author: Gilberto Virk MD Service: ? 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 Plan at last visit 09/14/22: Interventional Procedure(s): none Medication(s): - start Tylenol 1gm BID - Diclofenac 1% gel - start Lyrica 25mg QHS only (unable to tolerate NSAIDs) Additional Studies: CT L-spine XR T-spine XR L-spine Referrals: No additional considerations at present Functional Buddhist:No changes-continue current regimen Depending on response to the above-mentioned plan of care, in the future may consider evaluation for: LARISSA vs MBBs pending CT L-spine Interval Events: 09/14/22: recc XR L-spine, XR T-spine, CT L-spine. Started on Tylenol, Lyrica 10/02/22: Patients XR L-spine shows progression of T11 compression fracture as well as L1 and L3 compression fractures (approximately 50-60% compressive deformity of the T11 vertebral). However, pt further underwent a CT L-spine on 09/19/22 which showed that her compression fractures are stable as compared to CT L-spine on 09/18/21. Patient will benefit from TLSO bracing as tolerated, as well as possible consultation to IR for kyphoplasty, which will be discussed at her next OV on 10/04/22. Interval History: Today, pt reports that she has had good relief from Diclofenac 1% gel. She has not started Lyrica due to c/f side effects. Recall pt had acute on chronic lower back pain in July 2022 as noted below without an inciting cause. She has had chronic lower back pain and has suffered multiple compression fractures in the past, however she has not undergone kyphoplasty/vertebroplasty for her prior fractures. Pain Description: Primary Location: midline lumbar spine, bilateral R=L lumbar paraspinal, thoracic paraspinal pain Radiation: Lumbar spine: to the bilateral lumbar paraspinals Thoracic spine: to the bilateral thoracic paraspinals Character: sharp/sore Exacerbating factors: walking >a few steps, standing 10-15 min, flexion/extension, sit to stand transitons Relieving factors: ice , and heat Pain Medications Taken TO DATE (for the chief complaint(s)): OTC: Tylenol (moderate relief) NSAIDS: no NSAIDs due to AC Neuropathics: Gabapentin (mental fog, no benefit) Topicals: none Muscle Relaxants: none CURRENT Pain Medications: Paxil 20 mg daily Ativan 0.5 mg twice daily Bupropion 150 daily Baclofen 10mg TID prn Pt otherwise denies fevers, chills, weight loss, weakness, saddle anesthesia, bowel/bladder incontinence or retention. Imaging: CT L-spine 08/2022 IMPRESSION: Multilevel degenerative changes as above, comparable to prior exam. RESULT: Counting reference: Lumbosacral junction. For the purposes of this report, L4-5 is considered the level of the iliac crest and assume there are 5 lumbar-type vertebrae. Anatomic variant: None. Retail [employer] (topogram) images: Median sternotomy wires. Alignment: Moderate curvature lumbar spine concave to the RIGHT. Bone marrow /fracture: No evidence of a lytic or blastic process in the visualized spine. Stable compression fracture deformities involving T10, T11, L1, and L3. Remaining vertebral bodies normal in height. Posterior elements are intact. Paraspinal soft tissues: Hiatal hernia. L1-L2: Moderate canal stenosis secondary to mild retropulsed bony fragments and facet arthropathy. Unchanged. Severe foraminal stenosis. L2-L3: Bulging disk, facet, and ligamentous hypertrophy results in severe central canal narrowing and moderate LEFT and severe RIGHT neural foraminal narrowing. Unchanged. L3-L4: Bulging disk, facet, and ligamentous hypertrophy results in moderate central canal narrowing and severe neural foraminal narrowing. L4-L5: Bulging disk, facet, and ligamentous hypertrophy results in severe central canal narrowing and severe neural foraminal narrowing. L5-S1: Bulging disk, facet, and ligamentous hypertrophy results in moderate central canal narrowing and severe neural foraminal narrowing. Sacrum and iliac wings: The visualized sacrum and iliac wings are within normal limits. XR T-spine 09/19/22: IMPRESSION: Lower thoracic vertebral body compression deformities as described in results. Assessment limited secondary to curvature and osteopenia. (more content not included)...[facility]03-08-2023 History of Present illness Narrative* Vandana Sims - 10/04/2022 1:38 PM EST Review of Systems Constitutional: Negative for activity change, chills, fever and unexpected weight change. Gastrointestinal: Negative for bowel retention or incontinence Genitourinary: Negative for difficulty urinating. Negative for bladder retention or incontinence Musculoskeletal: Positive for arthralgias, back pain, gait problem and neck pain. Negative for joint swelling, myalgias and neck stiffness. Neurological: Positive for weakness. Negative for numbness and headaches. Psychiatric/Behavioral: Positive for dysphoric mood and sleep disturbance. Negative for suicidal ideas. The patient is not nervous/anxious. * Gilberto Virk MD - 10/04/2022 1:30 PM EST Images from the original note were not included. 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 Plan: Interventional Procedure(s): none Medication(s): - start Tylenol 1gm BID - Diclofenac 1% gel - start Lyrica 25mg QHS only (unable to tolerate NSAIDs) Additional Studies: CT L-spine XR T-spine XR L-spine Referrals: No additional considerations at present Functional Buddhist:No changes-continue current regimen Depending on response to the above-mentioned plan of care, in the future may consider evaluation for: LARISSA vs MBBs pending CT L-spine Interval Events: 09/14/22: recc XR L-spine, XR T-spine, CT L-spine. Started on Tylenol, Lyrica 10/02/22: Patients XR L-spine shows progression of T11 compression fracture as well as L1 and L3 compression fractures (approximately 50-60% compressive deformity of the T11 vertebral). However, pt further underwent a CT L-spine on 09/19/22 which showed that her compression fractures are stable as compared to CT L-spine on 09/18/21. Patient will benefit from TLSO bracing as tolerated, as well as possible consultation to IR for kyphoplasty, which will be discussed at her next OV on 10/04/22. Interval History: Today, pt reports that she has had good relief from Diclofenac 1% gel. She has not started Lyrica due to c/f side effects. Recall pt had acute on chronic lower back pain in July 2022 as noted below without an inciting cause. She has had chronic lower back pain and has suffered multiple compression fractures in the past, however she has not undergone kyphoplasty/vertebroplasty for her prior fractures. Pain Description: Primary Location: midline lumbar spine, bilateral R=L lumbar paraspinal, thoracic paraspinal pain Radiation: Lumbar spine: to the bilateral lumbar paraspinals Thoracic spine: to the bilateral thoracic paraspinals Character: sharp/sore Exacerbating factors: walking >a few steps, standing 10-15 min, flexion/extension, sit to stand transitons Relieving factors: ice , and heat Pain Medications Taken TO DATE (for the chief complaint(s)): OTC: Tylenol (moderate relief) NSAIDS: no NSAIDs due to AC Neuropathics: Gabapentin (mental fog, no benefit) Topicals: none Muscle Relaxants: none CURRENT Pain Medications: Paxil 20 mg daily Ativan 0.5 mg twice daily Bupropion 150 daily Baclofen 10mg TID prn Pt otherwise denies fevers, chills, weight loss, weakness, saddle anesthesia, bowel/bladder incontinence or retention. Imaging: CT L-spine 08/2022 IMPRESSION: Multilevel degenerative changes as above, comparable to prior exam. RESULT: Counting reference: Lumbosacral junction. For the purposes of this report, L4-5 is considered the level of the iliac crest and assume there are 5 lumbar-type vertebrae. Anatomic variant: None. [employer] (topogram) images: Median sternotomy wires. Alignment: Moderate curvature lumbar spine concave to the RIGHT. Bone marrow /fracture: No evidence of a lytic or blastic process in the visualized spine. Stable compression fracture deformities involving T10, T11, L1, and L3. Remaining vertebral bodies normal in height. Posterior elements are intact. Paraspinal soft tissues: Hiatal hernia. L1-L2: Moderate canal stenosis secondary to mild retropulsed bony fragments and facet arthropathy. Unchanged. Severe foraminal stenosis. L2-L3: Bulging disk, facet, and ligamentous hypertrophy results in severe central canal narrowing and moderate LEFT and severe RIGHT neural foraminal narrowing. Unchanged. L3-L4: Bulging disk, facet, and ligamentous hypertrophy results in moderate central canal narrowing and severe neural foraminal narrowing. L4-L5: Bulging disk, facet, and ligamentous hypertrophy results in severe central canal narrowing and severe neural foraminal narrowing. L5-S1: Bulging disk, facet, and ligamentous hypertrophy results in moderate central canal narrowing and severe neural foraminal narrowing. Sacrum and iliac wings: The visualized sacrum and iliac wings are within normal limits. XR T-spine 09/19/22: IMPRESSION: Lower thoracic vertebral body compression deformities as described in results. Assessment limited secondary to curvature and osteopenia. Findings: There is approximately 50-60% compressive deformity of the T11 vertebral body. This mild mid and anterior compressive deformity of the T10 vertebral body. Possible compressive deformities of T8 and T9 vertebral bodies with assessment limited due to curvature and osteopenia. Upper vertebral bodies appear intact. Mild endplate spurring. Difficult to assess for disc space narrowing. The lower thoracic spine is curved to the LEFT as component of the upper lumbar levoscoliosis. L1 compression deformity XR L-spine 09/19/22: IMPRESSION: Lumbar scoliosis. T11, L1 and L3 vertebral body compression fractures. The T11 compression fracture has increased since previous study of 06/21/2020. Multilevel degenerative disc disease. L2-3 retrolisthesis without evidence of instability. Findings: There is lumbar levoscoliosis. Anterior compressive deformities of the T11 and L1 vertebral bodies. There is also generalized compression deformity of the L3 vertebral body. Multilevel asymmetric disc space narrowing, which is somewhat difficult to characterize due to the scoliosis and secondary to osteopenia. There is about 6 mm of retrolisthesis at the L2-3 level which does not change with flexion or extension. Right lower lumbar facet joints are unremarkable. Possible narrowing lower lobe LEFT lumbar facet joints. There is vascular calcification. CT L-spine 08/2021 IMPRESSION: Atraumatic. Extensive chronic changes as detailed above. Severe degenerative changes in the lumbar spine and multilevel compression deformities, similar to prior. RESULT: CHEST: No thoracic aortic injury. Mild ectasia of the ascending aorta, measuring up to 4.3 cm, stable from prior. No mediastinal hematoma. No pericardial effusion. No acute lung injury. Mild bilateral atelectasis or scarring. No pneumothorax. Small left pleural effusion, adjacent a intrathoracic stomach with mesenteroaxial volvulus. Postsurgical changes of aortic valve replacement. Moderate coronary vascular calcifications. Small mediastinal lymph nodes do not meet criteria for adenopathy. ABDOMEN/PELVIS: No solid organ injury. Too small to reliably characterize lesions in the kidneys, the left is favored angiomyolipoma in the right is favored a cyst. Stable right adrenal nodule. No evidence of bowel or mesenteric injury. No free fluid or free air. No retroperitoneal hematoma. Pelvic contents are atraumatic. Hysterectomy. Severe calcified atherosclerosis. MUSCULOSKELETAL: No acute fracture. Stable compression deformities: There is a T10 compression deformity with approximately 30% vertebral body height loss along the superior endplate where there is adjacent vacuum disc phenomenon. There is a severe T11 compression deformity with approximately 80% vertebral body height loss and lucencies in the superior endplate. There is a severe L1 compression deformity with approximately 90% vertebral body height loss. Mild L3 superior endplate deformity with 20% vertebral body height loss. Severe demineralization is noted throughout the spine. There are 12 thoracic vertebral bodies. A T11 compression deformity results in at least mild spinal canal stenosis from retropulsed fracture fragments. There is no severe neural foraminal narrowing in the thoracic spine. There are 5 lumbar type vertebral bodies. An L1 compression deformity results in severe spinal canal narrowing from retropulsed fracture fragments and hypertrophy of the right L1-L2 facet. Severe osseous neural foraminal narrowing is seen on the right at L1-L2. Moderate osseous neural foraminal narrowing is seen on the right at L2-L3 and L3-L4. Posterior disc bulge at L3-L4 results in mild spinal canal stenosis. Posterior disc bulge at L4-L5 results in mild spinal canal stenosis. Mild left-sided neural foraminal narrowing is noted. Mild bilateral neural foraminal narrowing is noted at the L5-S1 level. MRI L-spine 2016: IMPRESSION: Acute compression fracture deformity L1 vertebral body. Multilevel degenerative changes. RESULTS: Counting reference: Lumbosacral junction. For the purposes of this report, L5S1 is considered the last lumbar type disc space. Paraspinal soft tissues: Paraspinal soft tissues are unremarkable. Alignment: Moderate curvature of the thoracic-lumbar spine concave to the right. Minimal retrolisthesis of L1 on L2. Alignment is otherwise normal. Bone marrow signal/fracture: No evidence of pathologic marrow infiltration. Acute compression fracture deformity of the L1 vertebral body with approximately 20% reduction in height and moderate inferior endplate compression. There is STIR hyperintensity within the vertebral body and corresponding low T1 signal intensity along the inferior endplate. Remaining lumbar vertebral bodies are normal in height. Conus: The conus is within normal limits of signal intensity and morphology. The conus terminates normally at L1. Lower thoracic spine: Visualized lower thoracic canal and foramina are patent. T12-L1: There is no significant central canal or neural foraminal stenosis. L1-L2: Bulging disk, facet, and ligamentous hypertrophy results in mild central canal narrowing and minimal neural foraminal narrowing. L2-L3: Bulging disk, facet, and ligamentous hypertrophy results in mild central canal narrowing and severe right neural foraminal narrowing. L3-L4: Bulging disk, facet, and ligamentous hypertrophy results in mild central canal narrowing and moderate right and severe left neural foraminal narrowing. L4-L5: Bulging disk, facet arthropathy, and ligamentous hypertrophy result in minimal effacement of anterior subarachnoid space and moderate right and severe left foraminal narrowing. L5-S1: Bulging disk, facet arthropathy, and ligamentous hypertrophy result in contact traversing bilateral S1 nerve roots and severe foraminal stenosis. XR L-spine 07/09/22: IMPRESSION: Findings as discussed under Results portion of report. RESULT: Findings: Marked demineralization. No narrowing of the disk spaces is seen. Severe LEFT convex rotoscoliosis. No fractures or dislocations are seen. Severe compression fracture of the L1 vertebral body again noted. The compression fractures of T10 and T11 noted on previous CT are not optimally seen due to bony demineralization. XR T/L spine 06/21/2020 IMPRESSION: New age-indeterminate compression fractures of T10 and T11 vertebral bodies. Stable chronic L1 vertebral plana. Pain Assessment: INTAKE PAIN ASSESSMENT 09/29/2022 10/04/2022 Are you having pain associated with your visit today? Yes, Provider notified Yes, Provider notified Pain Scales Verbal (Numeric Rating or Visual Analog Scale) Verbal (Numeric Rating or Visual Analog Scale) Pain Level 7 4 Pain Location Back Back-Middle Description - Sharp;Aching;Dull Duration Amount of Time - - Duration Units - Years Frequency - Continuous Intervention/Comfort measure - - Comments - nothing helps Pain Assessment - - Compliance: PDMP website checked and validated. All prescriptions have been APPROPRIATELY filled. No suspiciousactivity was identified. 09/14/2022 by Gilberto Virk MD Risk Assessment: PIPPA-7: PIPPA - 7 SCORES 09/14/2022 PIPPA-7 Score 5 (0-4) minimal anxiety, (5-9) mild anxiety, (10-14) moderate anxiety, (15-21) severe anxiety PHQ-9: PHQ-9 05/04/2022 09/14/2022 09/14/2022 Score 16 0 4 (0-4) minimal depression, (5-9) mild depression, (10-14) moderate depression, (15-19) moderately severe depression, (20-27) severe depression Opioid Risk Tool: Opioid Risk Tool: Family History of Substance Abuse: 0 - No Personal History of Substance Abuse: 0 - No Age between 16-45: 0 - No History of Pre-Adolescence Sexual Abuse: 0 - No Psychological Disease: Yes ADD/ADHD/OCD/Bipolar/Schizophrenia: No Depression: 1 - Yes Risk Total: 1 (0-3, low risk or no risk; 4-7, moderate risk, 8+, high risk) Allergies: ALLERGIES Allergen Reactions Adhesive Rash Blistering at site of application. Dextromethorphan Other: See Comments, Mental Status Change Risperidone Other: See Comments Sulfa (Sulfonamide * Other: See Comments Renal dysfunction. Childhood reaction. Generalized swelling Celebrex [Celecoxib] Other: See Comments Migraine headache. Aricept [Donepezil] Myalgia muscle pain and difficulty walking Compazine [Prochlor* Other: See Comments low BP Crestor [Rosuvastat* GI Upset Gabapentin Intolerance Confusion, when coupled with norco Lipitor [Atorvastat* Myalgia Lisinopril Cough No Latex Allergy [O* Oxycodone Itching Penicillins Other: See Comments Heart palpitations. No rash or itch. Can take cephalosporins Prozac [Fluoxetine * Other: See Comments hallucinating Ultram [Tramadol Hc* Itching Codeine Itching Current Outpatient Medications Medication Sig Dispense Refill iv contrast (will be provided with radiology test) CT Chest W -Inject, intravenously, once for 1 dose.No IV access, insert saline lock prior to the beginning of sedation, infusion, injection of imaging exam. Discontinue saline lock post exam. If Pt. has a central line or IVAD, may access for administration according to line specific nursing protocol. Once exam is complete flush line and de-accessaccording to line specific nursing protocol in the CT contrast administration guidelines link. 1 Each 0 ergocalciferol 50,000 unit capsule (VITAMIN D2, DRISDOL) Take 1 capsule by mouth every other week. predniSONE (DELTASONE) 10 mg tablet Take 4 tabs daily x 3 days, then 3 tabs x 3 days, 2 tabs x 3 days, then 1 tab x3 days with food. 30 tablet 0 baclofen (LIORESAL) 10 mg tablet Take 1 tablet by mouth three times daily as needed (muscle spasms). 30 tablet 0 montelukast (SINGULAIR) 10 mg tablet Take 1 tablet by mouth daily at bedtime. 90 tablet 3 diclofenac (VOLTAREN) 1 % topical gel Apply 4 g to affected area four times daily. 480 g 2 pregabalin (LYRICA) 25 mg capsule Take 1 capsule by mouth daily at bedtime for 30 days. 30 capsule 0 BREO ELLIPTA 200-25 mcg/dose inhaler INHALE 1 PUFF BY MOUTH ONCE DAILY PARoxetine (PAXIL) 20 mg tablet Take 1 tablet by mouth once daily. 90 tablet 3 LORazepam (ATIVAN) 1 mg tablet Take 0.5 tablets by mouth twice daily for 90 days. 90 tablet 0 ferrous sulfate 325 mg (65 mg iron) tablet Take 1 tablet by mouth twice daily with meals. 60 tablet2 SPIRIVA RESPIMAT 2.5 mcg/actuation inhaler INHALE 2 SPRAYS BY MOUTH ONCE DAILY AT APPROXIMATELY THESAME TIME EACH DAY furosemide (LASIX) 40 mg tablet Take 1 tablet by mouth once daily. 90 tablet 1 buPROPion XL (WELLBUTRIN XL) 150 mg 24 hr tablet Take 1 tablet by mouth once daily. 90 tablet 3 warfarin (COUMADIN) 3 mg tablet 2.5 mg MW and 4.5 mg all other days or as directed (Patient taking differently: 4.5 mg Tues/Thurs and 2.5 mg all other days) 90 tablet 3 warfarin (COUMADIN) 2.5 mg tablet 2.5 mg MWF and 4.5 mg all other days or as directed (Patient taking differently: 4.5 mg Tues/Thurs and 2.5 mg all other days) [address] (PROTONIX) 40 mg tablet Take 1 tablet by mouth twice daily. 180 tablet 3 potassium chloride ER (K-DUR, KLOR-CON) 20 mEq tablet Take 1 tablet by mouth once daily. 90 tablet 3 albuterol (PROVENTIL) 2.5 mg /3 mL (0.083 %) nebulizer solution Use 3 mL via nebulizer every 6 hours as needed for wheezing/shortness of breath. DX: J45.40 Hx of moderate persistent Asthma 360 mL 3 warfarin (COUMADIN) 2.5 mg tablet 2.5 mg Mon/Sun, 4.5 mg all other days or as directed amiodarone (PACERONE) 200 mg tablet Take 100 mg by mouth once daily. albuterol HFA (PROAIR HFA) 90 mcg/actuation inhaler Inhale 2 Puffs as instructed every 4 hours as needed. 3 Inhaler 0 budesonide-formoterol (SYMBICORT) 160-4.5 mcg/actuation inhaler Inhale 2 Puffs as instructed twice daily. acetaminophen (TYLENOL EXTRA STRENGTH) 500 mg tablet Take 1 tablet by mouth every 4 hours as neededfor Pain. RANGE FREQ? 0 Nebulizer NEBULIZER FOR HOME USE and necessary supplies. DX: Hypoxemia, Pneumonia and Hemoptisis 1 Each 0 triamcinolone acetonide (NASACORT AQ) 55 mcg nasal inhaler Use 1 [place] in the nose once daily. pravastatin (PRAVACHOL) 80 mg tablet TAKE 1 TABLET BY MOUTH ONCE DAILY 90 tablet 3 aspirin 81 mg chewable tablet Take 2 tablets by mouth once daily. 0 metoprolol succinate XL, long acting, 50 mg 24 hr tablet Take 1 tablet by mouth once daily. 30 tablet 2 ezetimibe(ZETIA 10 MG TAB) Take one(1) tablet daily. 0 Current Facility-Administered Medications Medication Dose Route Frequency Provider Last Rate Last Admin bupivacaine 7.5 mg injection (SENSORCAINE) 3 mL OTHER As Directed Patricia Charles MD 7.5 mg at 08/27/20 1131 PAST MEDICAL HISTORY Diagnosis Date Adjustment disorder with depressed mood Aortic valve disorder Dr. Mckay Carotid stenosis Compression deformity of vertebra Congestive heart failure (HCC) COPD (chronic obstructive pulmonary disease) (HCC) 01/03/2013 Esophageal reflux Normal EGD 12/2012 H/O aortic valve replacement INR should be 2.5 to 3.5 High blood pressure Hyperlipidemia Impaired glucose tolerance Intrinsic asthma 06/[address] done per Dr. Mckay Migraine Myalgia and myositis, unspecified Other forms of migraine Parkinsonism (HCC) Thyroid nodule Unspecified essential hypertension PAST SURGICAL HISTORY Procedure Laterality Date ANTERIOR COLPORRAPHY RPR CYSTOCELE W/CYSTO 2001 w/ uterosacral suspension CARDIOVERSION [facility] Spring 2019 CLOSURE SEMILUNAR VALVE AORTIC/PULM SUTURE/PATCH 2003 had aortic valve replacement w/ bovine valve COLONOSCOPY FLX DX W/COLLJ SPEC WHEN PFRMD 01/15/2013 Colonoscopy COLSC FLX W/RMVL OF TUMOR POLYP LESION SNARE TQ 05/07/2017 Colonoscopy - cecal inflammatory polyps. Repeat in 5 yrs DISPLACEMENT THERAPY PROETZ TYPE x3 ESOPHAGOGASTRODUODENOSCOPY TRANSORAL DIAGNOSTIC 01/15/2013 EGD ESOPHAGOGASTRODUODENOSCOPY TRANSORAL DIAGNOSTIC 05/07/2017 EGD FOOT RIGHT OP SURGERY 05/05/2009 HEMORRHOIDECTOMY XTRNL 2/> COLUMN/GROUP LAPS VAGINAL HYSTERECTOMY UTERUS 250 GM/< usvvs, enterocele repair,apr,lsc pvdr,cysto,spt LOW BACK DISK SURGERY 06/2011 OOPHORECTOMY PARTIAL/TOTAL UNI/BI PAST SURGICAL HISTORY OF 04/2012 Thyroid [id number] PAST SURGICAL HISTORY OF aug and september 2011 cataract removal PAST SURGICAL HISTORY OF 2013 aortic valve with On-X valve PERCUTANEOUS AORTIC VALVE REPLACEMENT 09/2013 POSTERIOR COLPORRHAPHY, REPAIR RECTOCELE 2001 SINUS SURGERY PROC UNLISTED [address] Styles ([place]), [address] Wood, 1 in [place] TONSILLECTOMY PRIMARY/SECONDARY <AGE 11 TOTAL ABDOMINAL HYSTERECT W/WO RMVL TUBE OVARY age 31 Current Medications, Past Medical History, Past Surgical History, Family History & Social History: As per above and per nursing documentation reviewed on today's date (noted above) Review of Systems: Pertinent positives and negatives as per nursing note reviewed on today's date (noted above) Diagnostic Studies: Reviewed Personally on today's date MRI Spine Report MRI LUMBAR SPINE WO CONTRAST Collected: 03/28/2016 12:34 PM (Final result) Narrative: * * *Final Report* * * DATE OF EXAM: Mar 28 2016 12:34PM [facility] 0560 - MRI LUMBAR SPINE WO CONTRAST / PROCEDURE REASON: multiple diagnoses * * * * Physician Interpretation * * * * RESULT: HISTORY: Low back pain with radiculopathy. COMPARISON: There are no prior exams for comparison on the digital archive at this time for comparison. EXAMINATION: Routine lumbosacral spine protocol without gadolinium. RESULTS: Counting reference: Lumbosacral junction. For the purposes of this report, L5S1 is considered the last lumbar type disc space. Paraspinal soft tissues: Paraspinal soft tissues are unremarkable. Alignment: Moderate curvature of the thoracic-lumbar spine concave to the right. Minimal retrolisthesis of L1 on L2. Alignment is otherwise normal. Bone marrow signal/fracture: No evidence of pathologic marrow infiltration. Acute compression fracture deformity of the L1 vertebral body with approximately 20% reduction in height and moderate inferior endplate compression. There is STIR hyperintensity within the vertebral body and corresponding low T1 signal intensity along the inferior endplate. Remaining lumbar vertebral bodies are normal in height. Conus: The conus is within normal limits of signal intensity and morphology. The conus terminates normally at L1. Lower thoracic spine: Visualized lower thoracic canal and foramina are patent. T12-L1: There is no significant central canal or neural foraminal stenosis. L1-L2: Bulging disk, facet, and ligamentous hypertrophy results in mild central canal narrowing and minimal neural foraminal narrowing. L2-L3: Bulging disk, facet, and ligamentous hypertrophy results in mild central canal narrowing and severe right neural foraminal narrowing. L3-L4: Bulging disk, facet, and ligamentous hypertrophy results in mild central canal narrowing and moderate right and severe left neural foraminal narrowing. L4-L5: Bulging disk, facet arthropathy, and ligamentous hypertrophy result in minimal effacement of anterior subarachnoid space and moderate right and severe left foraminal narrowing. L5-S1: Bulging disk, facet arthropathy, and ligamentous hypertrophy result in contact traversing bilateral S1 nerve roots and severe foraminal stenosis. Sacrum and iliac wings: Visible sacrum and iliac wings are normal. Presacral soft tissues within normal limits. Impression: IMPRESSION: Acute compression fracture deformity L1 vertebral body. Multilevel degenerative changes. Ventilating Expert: [facility]ENTERBryan Transcribe Date/Time: Mar 28 2016 1:02P Dictated by : ELENITA REYES MD This examination was interpreted and the report reviewed and electronically signed by: ELENITA REYES MD on Mar 28 2016 1:06PM EST DATE PROCEDURE % OF IMPROVEMENT (DURATION) None Physical Exam: 10/04/22 1337 Pulse: 70 Resp: 18 SpO2: 98% Constitutional: well appearing Eyes: Conjunctiva clear. No discharge from eyes Cardiovascular: Appears well perfused Lymphatic: No visible regional lymphadenopathy Skin: No visible rashes or ecchymosis Psychiatric: Full affect, Alert, Pleasant Palpation: (-) Midline cervical thoracic/lumbosacral spine tenderness (+)Thoracic/Lumbosacral paraspinal muscle tenderness (-) SIJ tenderness (-) piriformis muscle tenderness (-) Greater trochanter tenderness bilaterally ROM: Lumbar spine: flexion, extension, side-bending, rotation all full and painless Manuevers: (-) SLR negative bilaterally (+) Facet loading (Diamond's Test) bilaterally (-) Pio's/FABERs bilaterally (-) Dylan Finger Test to SIJ on two attempts Cervical spine: (-) Spurling's negative bilaterally (-) L'Hermitte's sign negative. ROM: Cervical spine: rotation, side-bending extension and flexion of cervical spine smooth and painless. Muscles: muscle spasm, trigger points, atrophy, fasciculation not appreciated 4/5 strength in all lower extremity myotomes, otherwise 5/5 strength in all upper extremity myotomes. Gait normal. Heel and toe gait normal. Neuro: Reflexes: DTRs 2+ in biceps, triceps, brachialis, patellar and achilles bilaterally. Whitfield's and Babinski negative bilaterally. No clonus. Sensation: grossly intact to light touch, cold, pin prick; no presence of allodynia, hyperesthesia,hypoesthesia, hyperpathia Diagnoses: No diagnosis found. Impression: Elza Chu is a 76 year old year-old female with Atrial fibrillation, s/p AVR x2 on Coumadin (INR goal 2.5-3.5), compression fracture (T11, T12, L1 and L3 compression fracture), HL, HTN, asthma,migraines, 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 Patients history, physical exam and imaging are concerning for multifactorial pain including components of: lumbar neuroforaminal stenosis (on imaging, with multilevel moderate to severe NF stenosis), lumbar facet arthropathy (on imaging, with multilevel facet arthropathy seen on CT L-spine) iso ofknown multiple compression fractures at T11, T12, L1 and and L3 and significant thoracolumbar scoliosis. She further has c/f lumbar spinal stenosis (CT L-spine notable for L2-3 and L4-5 severe central canal stenosis, as well as L1-2 moderate, L3-4 moderate and L5-S1 central canal stenosis Patient reports largely lower lumbar spine pain over the lower lumbar facets as well the lower lumbar spine, consistent with lumbar facet arthropathy, lumbar spinal stenosis (up to severe as noted above on CT L-spine). However concern remains for pain over the multiple compression fractures (severeat L1, also at T11, T12, L1 and L3) Plan: Elza Chu would benefit from the following to reach personal goals for decreasing pain,improving function and work participation, and/or improving quality of life: Interventional Procedure(s): - Bilateral lumbar MBBs L4/5 and L5/S1 - 2 sets 2 weeks apart - will confirm levels under fluoro - L5-S1 LARISSA vs caudal LARISSA - pt needs cardiac clearance The risks, benefits, alternative treatment options and prognosis of the procedure were discussed and all of the patient's questions/concerns were addressed to the patient's satisfaction. The patient expressed understanding and gave verbal consent to proceed. Medication(s): - continue Tylenol 1gm TID - Diclofenac 1% gel - hold Lyrica 25mg QHS - pt defers currently due to c/f side effects (unable to tolerate NSAIDs) Additional Studies: none Referrals: No additional considerations at present Functional Buddhist:No changes-continue current regimen Depending on response to the above-mentioned plan of care, in the future may consider evaluation for: RFA if positive MBBS, IR eval for kyphoplasty -Follow-up: after MBBs and LARISSA Attribution: In addition to reviewing the information noted above, some elements copied from my most recent clinical note(s), including the physical exam (completed in entirety today), and the impression and plan sections, have been updated where appropriate. All reflect current medical decision making from today's date (noted above). Gilberto Virk MD PhD Pain Management [facility] documented in this encounterWhite Hospital03-06-2023 Miscellaneous Notes* Telephone Encounter - Gilberto Virk MD - 10/02/2022 3:30 PM EST Patients XR L-spine shows progression of T11 compression fracture as well as L1 and L3 compression fractures (approximately 50-60% compressive deformity of the T11 vertebral). However, pt further underwent a CT L-spine on 09/19/22 which showed that her compression fractures are stable as compared to CT L-spine on 09/18/21. Patient will benefit from TLSO bracing as tolerated due to significant pain, as well as possible consultation to IR for kyphoplasty, which will be discussed at her next OV on 10/04/22. documented in this encounterWhite Hospital03-06-2023 History of Present illness Narrative* Sunny Estrella RN - 10/02/2022 10:16 AM EST [facility]IGHT [facility] TELEPHONIC OUTREACH Provider Action/FYI: CHF/COPD/CKD Has really struggled with chronic pain. Recent visit with PCP -prescribed baclofen. Has been takingto help to sleep at night. Reinforced use of Voltaren gel. Does not always remember to use, states she does get some relief from it. Also taking prednisone. Has follow up with pain management tomorrow. Was seen in ER for chest pain had follow up visit with PCP- breathing back to baseline. Using inhalers as prescribed. Reinforced importance of cough and deep breathing. Pulse ox readings in 94% range. Wt today 129# taking her lasix as prescribed. Contact made with patient: Yes Patient identified by name and . Discussed care with patient It s nice talking to you again. As a reminder, this is our bi-weekly check-in where I will be asking you questions about your health. This will only take a few minutes of your time. Is this a good time? Yes Symptoms What Chronic Disease(s) does the patient have: CHF, CKD, and COPD Do you check your blood pressures at home? No Do you have new or worse shortness of breath with activity? Yes Do you have new or worsening trouble breathing while lying flat? No Do you have new or worsening swelling of legs, feet or ankles? No Do you feel like you are dehydrated for any reason, including not being able to eat or drink normally, or having less urine/much darker urine than normal for you? No Do you check your daily weight at home? No and Do you have new or worsening cough? No Do you have new or worsening wheezing? No Do you need to use your rescue (Albuterol) inhaler or nebulizer more often than normal? No Are you having any other symptoms that your PCP needs to know about? No Symptoms: none Symptom Escalation ROMELIA Education Ordered -: No The patient required an escalation for symptom(s)? No Medications Do you have any questions about taking your medication or which medications you should be on? No Do you need any medication refills at this time, including any of the medications you might take only when needed? No Social We would like to make sure you have what you need so that your basic needs are met- including your personal safety, food, housing, transportation and medications? Would you like to speak with a social work seam steamer to help give you support for any of these needs? No It can be normal to feel anxious or down during a time like this. Would you like to talk to a mental health professional about how you have been feeling? No Closing Thank you for taking the time to talk with me today. We want to work with you to ensure that we arekeeping your medical condition(s) well-controlled and to keep you healthy and out of the doctor's office or hospital. It s also not too late for me to sign you up for automated weekly questionnaires through [employer]. This is an easy way for us to stay connected each week. Are you interested? No, I understand. We can always sign you up in the future if you change your mind. Just as a reminder, will continue to call you every other week to check in on your health. Our calls should take 10-15 minutes or less. Remember, if you have concerns in between our calls, please call your PCP's office right away. Thank you. Enter next patient outreach date for two weeks on the same day of the week as today in the Track PtOutreach and End outreach. documented in this encounterWhite [facility] History of Present illness Narrative* NATALIE Esparza-Roseann - 09/29/2022 3:02 PM EST 76 year old female with c/o exacerbation back: chronic over 4-5 weeks, no precipitating event or strain Severe with movement, cries out, sharp pains intermittently that come an go. Hurts across low back and sometime below waist L>R. No numbness, tingling, loss of sensation. Heat, ice, Tylenol helped at first but not much Ice helps more than anything else. . Rib pain over last 4-5 weeks. No known activity or strain known. Hurts/ sore to touch bilateral lateral ribs to chest area At times sharp, at times achy, or with movement. No trouble breathing from pain. No change in breathing or chest. On Home O2. When gets up from lying or sitting position feels like she might pass out. Weight loss 180-129lbs over 1 year, unintentional, 51lb loss. Appetite has decreased Under a lot of stress. Fatigued A little SOB Cough chronic over last 2-3 years Hx COPD If sits up straight gets pain in ribs, can't sit straight. Bowels irregular, may go for a weeks without a bowel movement Last 2 weeks has been normal, daily bowel movement. Takes iron which colors stool prado black. No mucus in stool or oil ion water. Appetite comes and goes, lately seems better. Was cutting Paxil in half for about a month. Now taking full tab again Occasional heartburn breakthrough No nausea or vomiting. + early satiety +bloating S/p SAURABH for excessive bleeding, no cancer Mammogram letter concern 09/22/2022 XR Lumbar scoliosis. T11, L1 and L3 vertebral body compression fractures. The T11 compression fracture has increased since previous study of 06/21/2020. Multilevel degenerative disc disease. L2-3 retrolisthesis without evidence of instability. 09/19/2022 MRI spine Counting reference: Lumbosacral junction. For the purposes of this report, L4-5 is considered the level of the iliac crest and assume there are 5 lumbar-type vertebrae. Anatomic variant: None. Retail Office Associate (topogram) images: Median sternotomy wires. Alignment: Moderate curvature lumbar spine concave to the RIGHT. Bone marrow /fracture: No evidence of a lytic or blastic process in the visualized spine. Stable compression fracture deformities involving T10, T11, L1, and L3. Remaining vertebral bodies normal in height. Posterior elements are intact. Paraspinal soft tissues: Hiatal hernia. L1-L2: Moderate canal stenosis secondary to mild retropulsed bony fragments and facet arthropathy. Unchanged. Severe foraminal stenosis. L2-L3: Bulging disk, facet, and ligamentous hypertrophy results in severe central canal narrowing and moderate LEFT and severe RIGHT neural foraminal narrowing. Unchanged. L3-L4: Bulging disk, facet, and ligamentous hypertrophy results in moderate central canal narrowingand severe neural foraminal narrowing. L4-L5: Bulging disk, facet, and ligamentous hypertrophy results in severe central canal narrowing and severe neural foraminal narrowing. L5-S1: Bulging disk, facet, and ligamentous hypertrophy results in moderate central canal narrowingand severe neural foraminal narrowing. ABDOMEN/PELVIS: No solid organ injury. Too small to reliably characterize lesions in the kidneys, the left is favored angiomyolipoma in the right is favored a cyst. Stable right adrenal nodule. No evidence of bowel or mesenteric injury. No free fluid or free air. No retroperitoneal hematoma. Pelvic contents are atraumatic. Hysterectomy. Severe calcified atherosclerosis. MUSCULOSKELETAL: No acute fracture. Stable compression deformities: There is a T10 compression deformity with approximately 30% vertebral body height loss along the superior endplate where there is adjacent vacuum disc phenomenon. There is a severe T11 compression deformity with approximately 80% vertebral body height loss and lucencies in the superior endplate. There is a severe L1 compression deformity with approximately 90% vertebral body height loss. Mild L3 superior endplate deformity with 20% vertebral body height loss. Severe demineralization is noted throughout the spine. There are 12 thoracic vertebral bodies. A T11 compression deformity results in at least mild spinal canal stenosis from retropulsed fracture fragments. There is no severe neural foraminal narrowing in the thoracic spine. There are 5 lumbar type vertebral bodies. An L1 compression deformity results in severe spinal canal narrowing from retropulsed fracture fragments and hypertrophy of the right L1-L2 facet. Severe osseous neural foraminal narrowing is seen on the right at L1-L2. Moderate osseous neural foraminal narrowing is seen on the right at L2-L3 and L3-L4. Posterior disc bulge at L3-L4 results in mild spinal canal stenosis. Posterior disc bulge at L4-L5 results in mild spinal canal stenosis. Mild left- sided neural foraminal narrowing is noted. Mild bilateral neural foraminal narrowing is noted at the L5-S1 level. 09/03/2022 two-view chest x-ray [facility] ED with comparison to 08/12/2022: 1. Postop changes of prior CABG without evidence of congestive heart failure 2. Worsening area of atelectasis and infiltrate at left lung base with small left pleural effusion noted 3. Lucency at left lung base/left CP angle with no definitive pleural line noted. 4. Minimal atelectasis right base 01/19/2022 CTA head and neck with IV contrast impression: 1. 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 Distal vessels are supplied via posterior communicating arteries. 3. Otherwise normal [place] 4. Sinus disease 09/18/2021 [facility] ED: CT brain/head without contrast: Probable small acute left frontal deep white matter infarct, recommend short- term CT or MR 09/18/2021 CT chest/abd/pel w IVCON: CHEST: No thoracic aortic injury. Mild ectasia of the ascending aorta, measuring up to 4.3 cm, stable fromprior. No mediastinal hematoma. No pericardial effusion. No acute lung injury. Mild bilateral atelectasis or scarring. No pneumothorax. Small left pleural effusion, adjacent a intrathoracic stomach with mesenteroaxial volvulus. Postsurgical changes of aortic valve replacement. Moderate coronary vascular calcifications. Small mediastinal lymph nodes do not meet criteria for adenopathy. Component Latest Ref Rng & Units 03/04/2021 09/01/2021 09/18/2021 12/07/2021 07/08/2022 WBC 3.70 - 11.00 k/uL 6.75 7.03 13.46 (H) 8.82 8.75 RBC 3.90 - 5.20 m/uL 5.54 (H) 5.20 5.13 4.99 5.06 Hemoglobin 11.5 - 15.5 g/dL 13.1 14.4 14.2 13.8 14.8 Hematocrit 36.0 - 46.0 % 46.4 (H) 48.2 (H) 46.2 (H) 45.8 47.8 (H) MCV 80.0 - 100.0 fL 83.8 92.7 90.1 91.8 94.5 MCH 26.0 - 34.0 pg 23.6 (L) 27.7 27.7 27.7 29.2 MCHC 30.5 - 36.0 g/dL 28.2 (L) 29.9 (L) 30.7 30.1 (L) 31.0 RDW-CV 11.5 - 15.0 % 23.6 (H) 14.1 13.3 14.1 13.4 Platelet Count 150 - 400 k/uL 308 278 270 333 343 MPV 9.0 - 12.7 fL 11.1 11.2 10.0 10.6 10.3 Neut% % 75.6 74.7 74.2 78.1 Abs Neut (ANC) 1.45 - 7.50 k/uL 5.10 5.23 6.55 6.84 Lymph% % 12.6 14.2 14.6 11.0 Abs Lymph 1.00 - 4.00 k/uL 0.85 (L) 1.00 1.29 0.96 (L) [place]% % 9.0 8.5 7.3 7.2 Abs [place] <0.87 k/uL 0.61 0.60 0.64 0.63 Eosin% % 2.1 1.7 2.4 2.1 Abs Eosin <0.46 k/uL 0.14 0.12 0.21 0.18 Baso% % 0.7 0.9 1.0 0.9 Abs Baso <0.11 k/uL 0.05 0.06 0.09 0.08 Immature Gran % % 0.5 0.7 IMMATURE GRANS (ABS) <0.10 k/uL 0.04 0.06 NRBC /100 WBC 0.0 0.0 Absolute nRBC <0.01 k/uL <0.01 <0.01 <0.01 <0.01 <0.01 DTYPE Auto Auto Nucleated Reds 0 /100 WBC 0.0 0.0 Diff Type Auto Diff Auto Diff Protein, Total 6.3 - 8.0 g/dL 6.6 6.8 Albumin 3.9 - 4.9 g/dL 3.7 (L) 3.8 (L) Calcium 8.5 - 10.2 mg/dL 9.5 10.3 (H) 10.2 Bilirubin, Total 0.2 - 1.3 mg/dL 0.4 0.3 Alkaline Phosphatase 34 - 123 U/L 78 77 AST 13 - 35 U/L 18 22 ALT 7 - 38 U/L 15 10 Glucose 74 - 99 mg/dL 88 78 72 (L) BUN 7 - 21 mg/dL 17 15 14 Creatinine 0.58 - 0.96 mg/dL 1.05 (H) 1.17 (H) 0.99 (H) Sodium 136 - 144 mmol/L 140 141 142 Potassium 3.7 - 5.1 mmol/L 3.2 (L) 3.8 4.2 Chloride 97 - 105 mmol/L 101 101 104 CO2 22 - 30 mmol/L 29 29 30 Anion Gap 9 - 18 mmol/L 10 11 8 (L) eGFR- >60 eGFR-All Other Races 51 eGFR >=60 mL/min/1.73m 48 (L) 59 (L) WSR 0 - 20 mm/hr 9 CRP <0.9 mg/dL 0.5 Vitamin D 25 Hydroxy 31.0 - 80.0 ng/mL 39.1 61.2 NT Pro BNP <450 pg/mL 784 (H) TSH 0.270 - 4.200 mIU/L 2.460 Lipase 16 - 61 U/L 19 HISTORIES FAMILY HISTORY Problem Relation Age of Onset Heart Mother Heart Father Diabetes Brother Hypertension Brother Lipids Brother Lipids Daughter other (Depression) Daughter GI Son Lipids Son Diabetes Sister Lipids Sister PAST MEDICAL HISTORY Diagnosis Date Adjustment disorder with depressed mood Aortic valve disorder Dr. Mckay Carotid stenosis Compression deformity of vertebra Congestive heart failure (HCC) COPD (chronic obstructive pulmonary disease) (HCC) 01/03/2013 Esophageal reflux Normal EGD 12/2012 H/O aortic valve replacement INR should be 2.5 to 3.5 High blood pressure Hyperlipidemia Impaired glucose tolerance Intrinsic asthma 06/[address] done per Dr. Mckay Migraine Myalgia and myositis, unspecified Other forms of migraine Parkinsonism (HCC) Thyroid nodule Unspecified essential hypertension PAST SURGICAL HISTORY Procedure Laterality Date ANTERIOR COLPORRAPHY RPR CYSTOCELE W/CYSTO 2001 w/ uterosacral suspension CARDIOVERSION [facility]- Spring 2019 CLOSURE SEMILUNAR VALVE AORTIC/PULM SUTURE/PATCH 2003 had aortic valve replacement w/ bovine valve COLONOSCOPY FLX DX W/COLLJ SPEC WHEN PFRMD 01/15/2013 Colonoscopy COLSC FLX W/RMVL OF TUMOR POLYP LESION SNARE TQ 05/07/2017 Colonoscopy - cecal inflammatory polyps. Repeat in 5 yrs DISPLACEMENT THERAPY PROETZ TYPE x3 ESOPHAGOGASTRODUODENOSCOPY TRANSORAL DIAGNOSTIC 01/15/2013 EGD ESOPHAGOGASTRODUODENOSCOPY TRANSORAL DIAGNOSTIC 05/07/2017 EGD FOOT RIGHT OP SURGERY 05/05/2009 HEMORRHOIDECTOMY XTRNL 2/> COLUMN/GROUP LAPS VAGINAL HYSTERECTOMY UTERUS 250 GM/< 2002/2001 usvvs, enterocele repair,apr,lsc pvdr,cysto,spt LOW BACK DISK SURGERY 06/2011 OOPHORECTOMY PARTIAL/TOTAL UNI/BI PAST SURGICAL HISTORY OF 04/2012 Thyroid [id number] PAST SURGICAL HISTORY OF aug and september 2011 cataract removal PAST SURGICAL HISTORY OF 2013 aortic valve with On-X valve PERCUTANEOUS AORTIC VALVE REPLACEMENT 09/2013 POSTERIOR COLPORRHAPHY, REPAIR RECTOCELE 2001 SINUS SURGERY PROC UNLISTED [address] Styles ([place]), [address] Wood, 1 in [place] TONSILLECTOMY PRIMARY/SECONDARY <AGE 11 TOTAL ABDOMINAL HYSTERECT W/WO RMVL TUBE OVARY age 31 Social History Tobacco Use Smoking status: Never Smokeless tobacco: Never Tobacco comments: Father smoked in childhood home. Spouse non-smoker. Vaping Use Vaping Use: Never used Substance Use Topics Alcohol use: No Drug use: No ACTIVE PROBLEM LIST Rectocele Thyroid Nodule Impaired Glucose Tolerance Hyperlipidemia Ldl Goal <100 Gerd (Gastroesophageal Reflux Disease) H/o Asthma, moderate persistent H/o Depression Aortic Valve Stenosis With Insufficiency Heart Failure, Diastolic, Chronic (Hcc) Paroxysmal Atrial Fibrillation ([facility]) Lumbar Degenerative Disc Disease Compression Deformity of Vertebra Adrenal Adenoma History of Aortic Valve Replacement Iron Deficiency Angiomyolipoma of Left Kidney History of Colonic Polyps Ckd (Chronic Kidney Disease) Stage 3, Gfr 30-59 Ml/Min ([facility]) Bronchiectasis Without Complication (Hcc) Chronic Sinusitis Obesity, Class I, Bmi 30-34.9 Lewy Body Dementia (Hcc) Copd (Chronic Obstructive Pulmonary Disease) (Hcc) Hypertensive Heart and Kidney Disease With Chronic Diastolic Congestive Heart Failure and Stage 3 Chronic Kidney Disease ([facility]) Persecutory Delusion ([facility]) Advance Care Planning Bilateral Carotid Artery Stenosis Nasal Lesion Other Osteoporosis Without Current Pathological Fracture Current Outpatient Medications Medication Sig Dispense Refill montelukast (SINGULAIR) 10 mg tablet Take 1 tablet by mouth daily at bedtime. 90 tablet 3 diclofenac (VOLTAREN) 1 % topical gel Apply 4 g to affected area four times daily. 480 g 2 pregabalin (LYRICA) 25 mg capsule Take 1 capsule by mouth daily at bedtime for 30 days. 30 capsule 0 BREO ELLIPTA 200-25 mcg/dose inhaler INHALE 1 PUFF BY MOUTH ONCE DAILY PARoxetine (PAXIL) 20 mg tablet Take 1 tablet by mouth once daily. 90 tablet 3 LORazepam (ATIVAN) 1 mg tablet Take 0.5 tablets by mouth twice daily for 90 days. 90 tablet 0 ferrous sulfate 325 mg (65 mg iron) tablet Take 1 tablet by mouth twice daily with meals. 60 tablet2 SPIRIVA RESPIMAT 2.5 mcg/actuation inhaler INHALE 2 SPRAYS BY MOUTH ONCE DAILY AT APPROXIMATELY THESAME TIME EACH DAY ergocalciferol 50,000 unit capsule (VITAMIN D2, DRISDOL) Take 1 capsule by mouth one time a week. 12 capsule 3 furosemide (LASIX) 40 mg tablet Take 1 tablet by mouth once daily. 90 tablet 1 buPROPion XL (WELLBUTRIN XL) 150 mg 24 hr tablet Take 1 tablet by mouth once daily. 90 tablet 3 warfarin (COUMADIN) 3 mg tablet 2.5 mg MW and 4.5 mg all other days or as directed (Patient taking differently: 4.5 mg Tues/Thurs and 2.5 mg all other days) 90 tablet 3 warfarin (COUMADIN) 2.5 mg tablet 2.5 mg MWF and 4.5 mg all other days or as directed (Patient taking differently: 4.5 mg Tues/Thurs and 2.5 mg all other days) [address] (PROTONIX) 40 mg tablet Take 1 tablet by mouth twice daily. 180 tablet 3 potassium chloride ER (K-DUR, KLOR-CON) 20 mEq tablet Take 1 tablet by mouth once daily. 90 tablet 3 albuterol (PROVENTIL) 2.5 mg /3 mL (0.083 %) nebulizer solution Use 3 mL via nebulizer every 6 hours as needed for wheezing/shortness of breath. DX: J45.40 Hx of moderate persistent Asthma 360 mL 3 warfarin (COUMADIN) 2.5 mg tablet 2.5 mg Sun/Sun, 4.5 mg all other days or as directed amiodarone (PACERONE) 200 mg tablet Take 100 mg by mouth once daily. albuterol HFA (PROAIR HFA) 90 mcg/actuation inhaler Inhale 2 Puffs as instructed every 4 hours as needed. 3 Inhaler 0 budesonide-formoterol (SYMBICORT) 160-4.5 mcg/actuation inhaler Inhale 2 Puffs as instructed twice daily. acetaminophen (TYLENOL EXTRA STRENGTH) 500 mg tablet Take 1 tablet by mouth every 4 hours as neededfor Pain. RANGE FREQ? 0 Nebulizer NEBULIZER FOR HOME USE and necessary supplies. DX: Hypoxemia, Pneumonia and Hemoptisis 1 Each 0 triamcinolone acetonide (NASACORT AQ) 55 mcg nasal inhaler Use 1 [place] in the nose once daily. pravastatin (PRAVACHOL) 80 mg tablet TAKE 1 TABLET BY MOUTH ONCE DAILY 90 tablet 3 aspirin 81 mg chewable tablet Take 2 tablets by mouth once daily. 0 metoprolol succinate XL, long acting, 50 mg 24 hr tablet Take 1 tablet by mouth once daily. 30 tablet 2 ezetimibe(ZETIA 10 MG TAB) Take one(1) tablet daily. 0 Current Facility-Administered Medications Medication Dose Route Frequency Provider Last Rate Last Admin bupivacaine 7.5 mg injection (SENSORCAINE) 3 mL OTHER As Directed Patricia Charles MD 7.5 mg at 08/27/20 1131 SHINGRIX VACCINE(1 of 2) Never done DTAP,TDAP,TD(1 - Tdap) due on 06/30/2011 ADVANCE DIRECTIVE DISCUSSION due on 07/30/2022 EXAM: BP 142/78 Pulse 72 Resp 18 Wt 58.9 kg (129 lb 12.8 oz) SpO2 94% BMI 25.35 kg/m Pleasant adult woman with progressive noteable weight loss in no acute distress. Alert and orientedall spheres. Normal affect and cognition. Speech normal. No deficits to learning or comprehension. Skin warm, dry, pink to lips and nailbeds. Normal turgor. Respirations regular and unlabored. Moist cough noted with clearing. HEENT: NCAT. No scleral icterus or conjunctival injection. TM's clear. Nose and oropharynx free from injection or lesion. Oral membranes moist and pink. No cervical lymph nodes. Thyroid non-tender, no masses, or enlargement. Carotids pulses 2+/4+ without bruits. Neck veins are flat. Chest is normal shape. No dullness at bases. Lungs are clear to all [place] with good air exchange through out. HRRR without murmur or gallop. No lifts, heaves, or rubs. Abdomen: soft, rounded, active bowel sounds throughout, soft, nontender, no masses or organomegaly.No CVAT. No axillary, clavicular, inguinal nodes. No bruits femoral or abdominal. Extrem: no clubbing or cyanosis. Edema: none. Extremities are warm and pink with prompt capillary refill. ASSESSMENT/PLAN: 1. Polyarthralgia - ICD9: 719.49, ICD10: M25.50 (primary diagnosis) Trial prednisone taper. Will follow next week on progress. - PREDNISONE 10 MG TABLET 2. Vitamin D deficiency - ICD9: 268.9, ICD10: E55.9 - ERGOCALCIFEROL (VITAMIN D2) 1,250 MCG (50,000 UNIT) CAPSULE 3. Failure to thrive in adult - ICD9: 783.7, ICD10: R62.7 Very concerning weight loss. Multiple recent scans: need to scan chest. - SED RATE WESTERGREN - C-REACTIVE PROTEIN (CRP) - VITAMIN D 25 HYDROXY - COMP METABOLIC PANEL 4. Vitamin D deficiency, unspecified - ICD9: 268.9, ICD10: E55.9 - VITAMIN D 25 HYDROXY 5. Interstitial pulmonary disease (HCC) - ICD9: 515, ICD10: J84.9 - CT CHEST W IVCON - IV CONTRAST (RADIOLOGY PROCEDURE) 45 minute visit Jas Harrell PA-C documented in this encounterWhite Hospital03-03-[facility]23 History of Present illness Narrative* Kolby Kim MD - 09/29/2022 1:22 PM EST agree * Tia Mock RN - 09/29/2022 1:17 PM EST patient had inr completed at [facility] patients inr is 3.1 (patients inr range is 2.5-3.5) patient is currently taking 4.5mg Wed and 2.5mg all other days patients last dose change was on 09/22/22 due to a high level of 4.1 (dose at that time was 4.5mg Tues,Thurs and 2.5mg all other days) patient has had no changes in medication except for coumadin and no uninstructed missed doses and no change in diet Advised patient to continue on the same dose(s) and that they would only be contacted regarding dosage and follow up instructions after review with provider, if a change is needed. Written instructions given and patient verbalized understanding. Presently scheduled in 2 weeks (10/12/22) for follow up INR since this is the first normal reading since dose change documented in this encounterWhite Hospital02-27-2023 Miscellaneous Notes* Telephone Encounter - Talia Cat Pss - 09/25/2022 4:30 PM EST Pharmacy verified in Epic Patient has been identified by name and date of : Yes Patient aware RX will be sent to pharmacy. No need to notify patient. Patient phones for refill(s): Requested Prescriptions Pending Prescriptions Disp Refills montelukast (SINGULAIR) 10 mg tablet 90 tablet 3 Sig: Take 1 tablet by mouth daily at bedtime. Date of last office visit : 07/27/2022 Date of next office visit : 11/06/2022 Last 2 Encounter Wt Readings: Date: Wt: 07/27/2022 59.1 kg (130 lb 6.4 oz) 07/06/2022 59.4 kg (131 lb) Please advise. Talia Cat Pss documented in this encounterWhite Hospital02-24-2023 History of Present illness Narrative* Tia Mock RN - 09/22/2022 3:27 PM EST per business administration professor patient is to hold today and then take 4.5mg Wed and 2.5mg all other days PATIENT NOTIFIED OF INFORMATION * Tia Mock RN - 09/22/2022 1:12 PM EST patient had inr completed at [facility] patients inr is 4.1 (patients inr range is 2.5-3.5) patient is currently taking 4.5mg Tues,Thurs and 2.5mg all other days patients last dose change was on 08/25/22 due to a high level of 3.9 (dose at that time was 4.5mg Tues,Thurs,Sat and 2.5mg all other days) patient has had no changes in medication and no uninstructed missed doses and no change in diet FYI- last week patients inr level was high at 3.8 but patient was on prednisone and antibiotics. patient was instructed to hold dose then restart same dose next day which patient did Advised patient that they would be contacted regarding medication dose and when to follow up after information is reviewed by provider. After provider review please contact the patient with information and schedule follow up appointment with coumadin clinic. FYI- patient has been scheduled for a 1 week follow up inr on 09/29/22 documented in this encounterWhite Hospital02-21-2023 History of Present illness Narrative* Tiffany Bhatia RT(R) - 09/19/2022 2:00 PM EST Radiology Service Progress Note PATIENT NAME: Elza Chu DATE OF SERVICE: September 19, 2022 TIME: 1:52 PM PATIENT IDENTITY VERIFICATION COMPLETED USING TWO (2) IDENTIFIERS: Name and Date of confirmedby patient verbally. FALL SCREENING: Has the patient had 2 falls in the last year or 1 fall with injury or currently using an Ambulatory Assistive Device (Walker, Cane, Wheelchair, Crutches, etc.)? Yes, Patient High Riskfor Falls What interventions were put in place to prevent falls during this visit? Offered Assistance with Transfers/Clothing and Instructed Patient to Remain Seated (Not on Exam Table) Until Exam PATIENT GENDER DATA: Female. status: : No status: NO. PATIENT RELEVANT IMPLANT DATA REVIEWED: Not Applicable RADIOLOGY DEPARTMENT: General X-ray: Exam(s) Completed: Spine X-Ray(s): Thoracic and Lumbar AP / LAT / L5-S1 / OBL / FLEX-EXT PERIPHERAL IV DATA: Not applicable SIGNED BY: RT Mariah(R) September 19, 2022 1:52 PM documented in this encounterWhite Hospital02-21-2023 Miscellaneous Notes* Result Encounter Note - Gilberto Virk MD - 09/19/2022 2:00 PM EST Patients XR L-spine shows progression of T11 compression fracture as well as L1 and L3 compression fractures (approximately 50-60% compressive deformity of the T11 vertebral). However, pt further underwent a CT L-spine on 09/19/22 which showed that her compression fractures are stable as compared to CT L-spine on 09/18/21. Patient will benefit from TLSO bracing as tolerated,as well as possible consultation to IR for kyphoplasty, which will be discussed at her next OV on 10/04/22. documented in this encounterWhite Hospital02-16-2023 NoteHNO ID: [id number] Author: Gilberto Virk MD Service: ? Author Type: Physician Type: Progress Notes Filed: 09/15/2022 3:58 PM Note Text: [facility] Name: Elza Chu : 1945 Purpose: New Patient Consultation Date 09/14/2022 Chief Complaint: lumbar and thoracic spine pain Initial HPI: Elza Chu is a 76 year old year-old female with Atrial fibrillation, s/p AVR x2 on Coumadin (INR goal 2.5-3.5), compression fracture (T11, T12, L1 and L3 compression fracture), HL, HTN, asthma, migraines, 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 Today, pt reports that she had acute on chronic lower back pain in the last 4 weeks as noted below without an inciting cause. She has had chronic lower back pain and has suffered multiple compression fractures in the past, however she has not undergone kyphoplasty/vertebroplasty for her prior fractures. Pain Description: Primary Location: midline lumbar spine, bilateral R=L lumbar paraspinal, thoracic paraspinal pain Radiation: Lumbar spine: to the bilateral lumbar paraspinals Thoracic spine: to the bilateral thoracic paraspinals Character: sharp/sore Exacerbating factors: walking >a few steps, standing 10-15 min, flexion/extension, sit to stand transitons Relieving factors: ice , and heat Pain Medications Taken TO DATE (for the chief complaint(s)): OTC: Tylenol (moderate relief) NSAIDS: no NSAIDs due to AC Neuropathics: Gabapentin (mental fog, no benefit) Topicals: none Muscle Relaxants: none CURRENT Pain Medications: Paxil 20 mg daily Ativan 0.5 mg twice daily Bupropion 150 daily Pt otherwise denies fevers, chills, weight loss, weakness, saddle anesthesia, bowel/bladder incontinence or retention. Imaging: CT L-spine 08/2021 IMPRESSION: Atraumatic. Extensive chronic changes as detailed above. Severe degenerative changes in the lumbar spine and multilevel compression deformities, similar to prior. RESULT: CHEST: No thoracic aortic injury. Mild ectasia of the ascending aorta, measuring up to 4.3 cm, stable from prior. No mediastinal hematoma. No pericardial effusion. No acute lung injury. Mild bilateral atelectasis or scarring. No pneumothorax. Small left pleural effusion, adjacent a intrathoracic stomach with mesenteroaxial volvulus. Postsurgical changes of aortic valve replacement. Moderate coronary vascular calcifications. Small mediastinal lymph nodes do not meet criteria for adenopathy. ABDOMEN/PELVIS: No solid organ injury. Too small to reliably characterize lesions in the kidneys, the left is favored angiomyolipoma in the right is favored a cyst. Stable right adrenal nodule. No evidence of bowel or mesenteric injury. No free fluid or free air. No retroperitoneal hematoma. Pelvic contents are atraumatic. Hysterectomy. Severe calcified atherosclerosis. MUSCULOSKELETAL: No acute fracture. Stable compression deformities: There is a T10 compression deformity with approximately 30% vertebral body height loss along the superior endplate where there is adjacent vacuum disc phenomenon. There is a severe T11 compression deformity with approximately 80% vertebral body height loss and lucencies in the superior endplate. There is a severe L1 compression deformity with approximately 90% vertebral body height loss. Mild L3 superior endplate deformity with 20% vertebral body height loss. Severe demineralization is noted throughout the spine. There are 12 thoracic vertebral bodies. A T11 compression deformity results in at least mild spinal canal stenosis from retropulsed fracture fragments. There is no severe neural foraminal narrowing in the thoracic spine. There are 5 lumbar type vertebral bodies. An L1 compression deformity results in severe spinal canal narrowing from retropulsed fracture fragments and hypertrophy of the right L1-L2 facet. Severe osseous neural foraminal narrowing is seen on the right at L1-L2. Moderate osseous neural foraminal narrowing is seen on the right at L2-L3 and L3-L4. Posterior disc bulge at L3-L4 results in mild spinal canal stenosis. Posterior disc bulge at L4-L5 results in mild spinal canal stenosis. Mild left-sided neural foraminal narrowing is noted. Mild bilateral neural foraminal narrowing is noted at the L5-S1 level. MRI L-spine 2016: IMPRESSION: Acute compression fracture deformity L1 vertebral body. Multilevel degenerative changes. RESULTS: Counting reference: Lumbosacral junction. For the purposes of this report, L5S1 is considered the last lumbar type disc space. Paraspinal soft tissues: Paraspinal soft tissues are unremarkable. Alignment: Moderate curvature of the thoracic-lumbar spine concave to the (more content not included)...[facility]02-[facility]23 NoteHNO ID: [id number] Author: Tiki Reyna LPN Service: ? Author Type: LICENSED NURSE Type: Progress Notes Filed: 09/15/2022 3:58 PM Note Text: Review of Systems Constitutional: Positive for activity change and unexpected weight change. Negative for appetite change, chills and fever. Genitourinary: Positive for difficulty urinating. Musculoskeletal: Positive for arthralgias, back pain, gait problem, joint swelling, myalgias and neck pain. Neurological: Positive for weakness, numbness and headaches. Psychiatric/Behavioral: Positive for dysphoric mood. Negative for sleep disturbance and suicidal ideas. The patient is nervous/anxious.[facility]02-[facility] History of Present illness Narrative* Gilberto Virk MD - 09/14/2022 11:43 AM EST Images from the original note were not included. [facility] Name: Elza Chu : 1945 Purpose: New Patient Consultation Date 09/14/2022 Chief Complaint: lumbar and thoracic spine pain Initial HPI: Elza Chu is a 76 year old year-old female with Atrial fibrillation, s/p AVR x2 on Coumadin (INR goal 2.5-3.5), compression fracture (T11, T12, L1 and L3 compression fracture), HL, HTN, asthma,migraines, 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 Today, pt reports that she had acute on chronic lower back pain in the last 4 weeks as noted below without an inciting cause. She has had chronic lower back pain and has suffered multiple compressionfractures in the past, however she has not undergone kyphoplasty/vertebroplasty for her prior fractures. Pain Description: Primary Location: midline lumbar spine, bilateral R=L lumbar paraspinal, thoracic paraspinal pain Radiation: Lumbar spine: to the bilateral lumbar paraspinals Thoracic spine: to the bilateral thoracic paraspinals Character: sharp/sore Exacerbating factors: walking >a few steps, standing 10-15 min, flexion/extension, sit to stand transitons Relieving factors: ice , and heat Pain Medications Taken TO DATE (for the chief complaint(s)): OTC: Tylenol (moderate relief) NSAIDS: no NSAIDs due to AC Neuropathics: Gabapentin (mental fog, no benefit) Topicals: none Muscle Relaxants: none CURRENT Pain Medications: Paxil 20 mg daily Ativan 0.5 mg twice daily Bupropion 150 daily Pt otherwise denies fevers, chills, weight loss, weakness, saddle anesthesia, bowel/bladder incontinence or retention. Imaging: CT L-spine 08/2021 IMPRESSION: Atraumatic. Extensive chronic changes as detailed above. Severe degenerative changes in the lumbar spine and multilevel compression deformities, similar to prior. RESULT: CHEST: No thoracic aortic injury. Mild ectasia of the ascending aorta, measuring up to 4.3 cm, stable from prior. No mediastinal hematoma. No pericardial effusion. No acute lung injury. Mild bilateral atelectasis or scarring. No pneumothorax. Small left pleural effusion, adjacent a intrathoracic stomach with mesenteroaxial volvulus. Postsurgical changes of aortic valve replacement. Moderate coronary vascular calcifications. Small mediastinal lymph nodes do not meet criteria for adenopathy. ABDOMEN/PELVIS: No solid organ injury. Too small to reliably characterize lesions in the kidneys, the left is favored angiomyolipoma in the right is favored a cyst. Stable right adrenal nodule. No evidence of bowel or mesenteric injury. No free fluid or free air. No retroperitoneal hematoma. Pelvic contents are atraumatic. Hysterectomy. Severe calcified atherosclerosis. MUSCULOSKELETAL: No acute fracture. Stable compression deformities: There is a T10 compression deformity with approximately 30% vertebral body height loss along the superior endplate where there is adjacent vacuum disc phenomenon. There is a severe T11 compression deformity with approximately 80% vertebral body height loss and lucencies in the superior endplate. There is a severe L1 compression deformity with approximately 90% vertebral body height loss. Mild L3 superior endplate deformity with 20% vertebral body height loss. Severe demineralization is noted throughout the spine. There are 12 thoracic vertebral bodies. A T11 compression deformity results in at least mild spinal canal stenosis from retropulsed fracture fragments. There is no severe neural foraminal narrowing in the thoracic spine. There are 5 lumbar type vertebral bodies. An L1 compression deformity results in severe spinal canal narrowing from retropulsed fracture fragments and hypertrophy of the right L1-L2 facet. Severe osseous neural foraminal narrowing is seen on the right at L1-L2. Moderate osseous neural foraminal narrowing is seen on the right at L2-L3 and L3-L4. Posterior disc bulge at L3-L4 results in mild spinal canal stenosis. Posterior disc bulge at L4-L5 results in mild spinal canal stenosis. Mild left-sided neural foraminal narrowing is noted. Mild bilateral neural foraminal narrowing is noted at the L5-S1 level. MRI L-spine 2016: IMPRESSION: Acute compression fracture deformity L1 vertebral body. Multilevel degenerative changes. RESULTS: Counting reference: Lumbosacral junction. For the purposes of this report, L5S1 is considered the last lumbar type disc space. Paraspinal soft tissues: Paraspinal soft tissues are unremarkable. Alignment: Moderate curvature of the thoracic-lumbar spine concave to the right. Minimal retrolisthesis of L1 on L2. Alignment is otherwise normal. Bone marrow signal/fracture: No evidence of pathologic marrow infiltration. Acute compression fracture deformity of the L1 vertebral body with approximately 20% reduction in height and moderate inferior endplate compression. There is STIR hyperintensity within the vertebral body and corresponding low T1 signal intensity along the inferior endplate. Remaining lumbar vertebral bodies are normal in height. Conus: The conus is within normal limits of signal intensity and morphology. The conus terminates normally at L1. Lower thoracic spine: Visualized lower thoracic canal and foramina are patent. T12-L1: There is no significant central canal or neural foraminal stenosis. L1-L2: Bulging disk, facet, and ligamentous hypertrophy results in mild central canal narrowing and minimal neural foraminal narrowing. L2-L3: Bulging disk, facet, and ligamentous hypertrophy results in mild central canal narrowing and severe right neural foraminal narrowing. L3-L4: Bulging disk, facet, and ligamentous hypertrophy results in mild central canal narrowing and moderate right and severe left neural foraminal narrowing. L4-L5: Bulging disk, facet arthropathy, and ligamentous hypertrophy result in minimal effacement of anterior subarachnoid space and moderate right and severe left foraminal narrowing. L5-S1: Bulging disk, facet arthropathy, and ligamentous hypertrophy result in contact traversing bilateral S1 nerve roots and severe foraminal stenosis. XR L-spine 07/09/22: IMPRESSION: Findings as discussed under Results portion of report. RESULT: Findings: Marked demineralization. No narrowing of the disk spaces is seen. Severe LEFT convex rotoscoliosis. No fractures or dislocations are seen. Severe compression fracture of the L1 vertebral body again noted. The compression fractures of T10 and T11 noted on previous CT are not optimally seen due to bony demineralization. XR T/L spine 06/21/2020 IMPRESSION: New age-indeterminate compression fractures of T10 and T11 vertebral bodies. Stable chronic L1 vertebral plana. Pain Assessment: INTAKE PAIN ASSESSMENT 09/13/2022 09/14/2022 Are you having pain associated with your visit today? No Yes, Provider notified Pain Scales - Verbal (Numeric Rating or Visual Analog Scale) Pain Level - 6 Pain Location - Back-Lower Description - Sharp Duration Amount of Time - - Duration Units - Weeks Frequency - Continuous Intervention/Comfort measure - Reposition;Relaxation;Positioning;Heat;Cold;Medication Comments - - Pain Assessment - - Compliance: PDMP website checked and validated. All prescriptions have been APPROPRIATELY filled. No suspiciousactivity was identified. 09/14/2022 by Gilberto Virk MD Risk Assessment: PIPPA-7: PIPPA - 7 SCORES 09/14/2022 PIPPA-7 Score 5 (0-4) minimal anxiety, (5-9) mild anxiety, (10-14) moderate anxiety, (15-21) severe anxiety PHQ-9: PHQ-9 05/04/2022 09/14/2022 09/14/2022 Score 16 0 4 (0-4) minimal depression, (5-9) mild depression, (10-14) moderate depression, (15-19) moderately severe depression, (20-27) severe depression Opioid Risk Tool: Opioid Risk Tool: Family History of Substance Abuse: 0 - No Personal History of Substance Abuse: 0 - No Age between 16-45: 0 - No History of Pre-Adolescence Sexual Abuse: 0 - No Psychological Disease: Yes ADD/ADHD/OCD/Bipolar/Schizophrenia: No Depression: 1 - Yes Risk Total: 1 (0-3, low risk or no risk; 4-7, moderate risk, 8+, high risk) Allergies: ALLERGIES Allergen Reactions Adhesive Rash Blistering at site of application. Dextromethorphan Other: See Comments, Mental Status Change Risperidone Other: See Comments Sulfa (Sulfonamide * Other: See Comments Renal dysfunction. Childhood reaction. Generalized swelling Celebrex [Celecoxib] Other: See Comments Migraine headache. Aricept [Donepezil] Myalgia muscle pain and difficulty walking Compazine [Prochlor* Other: See Comments low BP Crestor [Rosuvastat* GI Upset Gabapentin Intolerance Confusion, when coupled with norco Lipitor [Atorvastat* Myalgia Lisinopril Cough No Latex Allergy [O* Oxycodone Itching Penicillins Other: See Comments Heart palpitations. No rash or itch. Can take cephalosporins Prozac [Fluoxetine * Other: See Comments hallucinating Ultram [Tramadol Hc* Itching Codeine Itching Current Outpatient Medications Medication Sig Dispense Refill BREO ELLIPTA 200-25 mcg/dose inhaler INHALE 1 PUFF BY MOUTH ONCE DAILY PARoxetine (PAXIL) 20 mg tablet Take 1 tablet by mouth once daily. 90 tablet 3 montelukast (SINGULAIR) 10 mg tablet Take 1 tablet by mouth daily at bedtime. 90 tablet 3 LORazepam (ATIVAN) 1 mg tablet Take 0.5 tablets by mouth twice daily for 90 days. 90 tablet 0 ferrous sulfate 325 mg (65 mg iron) tablet Take 1 tablet by mouth twice daily with meals. 60 tablet2 SPIRIVA RESPIMAT 2.5 mcg/actuation inhaler INHALE 2 SPRAYS BY MOUTH ONCE DAILY AT APPROXIMATELY THESAME TIME EACH DAY ergocalciferol 50,000 unit capsule (VITAMIN D2, DRISDOL) Take 1 capsule by mouth one time a week. 12 capsule 3 furosemide (LASIX) 40 mg tablet Take 1 tablet by mouth once daily. 90 tablet 1 buPROPion XL (WELLBUTRIN XL) 150 mg 24 hr tablet Take 1 tablet by mouth once daily. 90 tablet 3 warfarin (COUMADIN) 3 mg tablet 2.5 mg MW and 4.5 mg all other days or as directed (Patient taking differently: 4.5 mg Tues/Thurs and 2.5 mg all other days) 90 tablet 3 warfarin (COUMADIN) 2.5 mg tablet 2.5 mg MWF and 4.5 mg all other days or as directed (Patient taking differently: 4.5 mg Tues/Thurs and 2.5 mg all other days) [address] (PROTONIX) 40 mg tablet Take 1 tablet by mouth twice daily. 180 tablet 3 potassium chloride ER (K-DUR, KLOR-CON) 20 mEq tablet Take 1 tablet by mouth once daily. 90 tablet 3 albuterol (PROVENTIL) 2.5 mg /3 mL (0.083 %) nebulizer solution Use 3 mL via nebulizer every 6 hours as needed for wheezing/shortness of breath. DX: J45.40 Hx of moderate persistent Asthma 360 mL 3 warfarin (COUMADIN) 2.5 mg tablet 2.5 mg Sun/Sun, 4.5 mg all other days or as directed amiodarone (PACERONE) 200 mg tablet Take 100 mg by mouth once daily. albuterol HFA (PROAIR HFA) 90 mcg/actuation inhaler Inhale 2 Puffs as instructed every 4 hours as needed. 3 Inhaler 0 budesonide-formoterol (SYMBICORT) 160-4.5 mcg/actuation inhaler Inhale 2 Puffs as instructed twice daily. acetaminophen (TYLENOL EXTRA STRENGTH) 500 mg tablet Take 1 tablet by mouth every 4 hours as neededfor Pain. RANGE FREQ? 0 Nebulizer NEBULIZER FOR HOME USE and necessary supplies. DX: Hypoxemia, Pneumonia and Hemoptisis 1 Each 0 triamcinolone acetonide (NASACORT AQ) 55 mcg nasal inhaler Use 1 [place] in the nose once daily. pravastatin (PRAVACHOL) 80 mg tablet TAKE 1 TABLET BY MOUTH ONCE DAILY 90 tablet 3 aspirin 81 mg chewable tablet Take 2 tablets by mouth once daily. 0 metoprolol succinate XL, long acting, 50 mg 24 hr tablet Take 1 tablet by mouth once daily. 30 tablet 2 ezetimibe(ZETIA 10 MG TAB) Take one(1) tablet daily. 0 Current Facility-Administered Medications Medication Dose Route Frequency Provider Last Rate Last Admin bupivacaine 7.5 mg injection (SENSORCAINE) 3 mL OTHER As Directed Patricia Charles MD 7.5 mg at 08/27/20 1131 PAST MEDICAL HISTORY Diagnosis Date Adjustment disorder with depressed mood Aortic valve disorder Dr. Mckay Carotid stenosis Compression deformity of vertebra Congestive heart failure (HCC) COPD (chronic obstructive pulmonary disease) (HCC) 01/03/2013 Esophageal reflux Normal EGD 12/2012 H/O aortic valve replacement INR should be 2.5 to 3.5 High blood pressure Hyperlipidemia Impaired glucose tolerance Intrinsic asthma 06/[address] done per Dr. Mckay Migraine Myalgia and myositis, unspecified Other forms of migraine Parkinsonism (HCC) Thyroid nodule Unspecified essential hypertension PAST SURGICAL HISTORY Procedure Laterality Date ANTERIOR COLPORRAPHY RPR CYSTOCELE W/CYSTO 2001 w/ uterosacral suspension CARDIOVERSION [facility] Spring 2019 CLOSURE SEMILUNAR VALVE AORTIC/PULM SUTURE/PATCH 2003 had aortic valve replacement w/ bovine valve COLONOSCOPY FLX DX W/COLLJ SPEC WHEN PFRMD 01/15/2013 Colonoscopy COLSC FLX W/RMVL OF TUMOR POLYP LESION SNARE TQ 05/07/2017 Colonoscopy - cecal inflammatory polyps. Repeat in 5 yrs DISPLACEMENT THERAPY PROETZ TYPE x3 ESOPHAGOGASTRODUODENOSCOPY TRANSORAL DIAGNOSTIC 01/15/2013 EGD ESOPHAGOGASTRODUODENOSCOPY TRANSORAL DIAGNOSTIC 05/07/2017 EGD FOOT RIGHT OP SURGERY 05/05/2009 HEMORRHOIDECTOMY XTRNL 2/> COLUMN/GROUP LAPS VAGINAL HYSTERECTOMY UTERUS 250 GM/< usvvs, enterocele repair,apr,lsc pvdr,cysto,spt LOW BACK DISK SURGERY 06/2011 OOPHORECTOMY PARTIAL/TOTAL UNI/BI PAST SURGICAL HISTORY OF 04/2012 Thyroid [id number] PAST SURGICAL HISTORY OF aug and september 2011 cataract removal PAST SURGICAL HISTORY OF 2013 aortic valve with On-X valve PERCUTANEOUS AORTIC VALVE REPLACEMENT 09/2013 POSTERIOR COLPORRHAPHY, REPAIR RECTOCELE 2001 SINUS SURGERY PROC UNLISTED [address] Styles ([place]), [address] Wood, 1 in [place] TONSILLECTOMY PRIMARY/SECONDARY <AGE 11 TOTAL ABDOMINAL HYSTERECT W/WO RMVL TUBE OVARY age 31 Current Medications, Past Medical History, Past Surgical History, Family History & Social History: As per above and per nursing documentation reviewed on today's date (noted above) Review of Systems: Pertinent positives and negatives as per nursing note reviewed on today's date (noted above) Diagnostic Studies: Reviewed Personally on today's date MRI Spine Report MRI LUMBAR SPINE WO CONTRAST Collected: 03/28/2016 12:34 PM (Final result) Narrative: * * *Final Report* * * DATE OF EXAM: Mar 28 2016 12:34PM [facility] [id number] - MRI LUMBAR SPINE WO CONTRAST / PROCEDURE REASON: multiple diagnoses * * * * Physician Interpretation * * * * RESULT: HISTORY: Low back pain with radiculopathy. COMPARISON: There are no prior exams for comparison on the digital archive at this time for comparison. EXAMINATION: Routine lumbosacral spine protocol without gadolinium. RESULTS: Counting reference: Lumbosacral junction. For the purposes of this report, L5S1 is considered the last lumbar type disc space. Paraspinal soft tissues: Paraspinal soft tissues are unremarkable. Alignment: Moderate curvature of the thoracic-lumbar spine concave to the right. Minimal retrolisthesis of L1 on L2. Alignment is otherwise normal. Bone marrow signal/fracture: No evidence of pathologic marrow infiltration. Acute compression fracture deformity of the L1 vertebral body with approximately 20% reduction in height and moderate inferior endplate compression. There is STIR hyperintensity within the vertebral body and corresponding low T1 signal intensity along the inferior endplate. Remaining lumbar vertebral bodies are normal in height. Conus: The conus is within normal limits of signal intensity and morphology. The conus terminates normally at L1. Lower thoracic spine: Visualized lower thoracic canal and foramina are patent. T12-L1: There is no significant central canal or neural foraminal stenosis. L1-L2: Bulging disk, facet, and ligamentous hypertrophy results in mild central canal narrowing and minimal neural foraminal narrowing. L2-L3: Bulging disk, facet, and ligamentous hypertrophy results in mild central canal narrowing and severe right neural foraminal narrowing. L3-L4: Bulging disk, facet, and ligamentous hypertrophy results in mild central canal narrowing and moderate right and severe left neural foraminal narrowing. L4-L5: Bulging disk, facet arthropathy, and ligamentous hypertrophy result in minimal effacement of anterior subarachnoid space and moderate right and severe left foraminal narrowing. L5-S1: Bulging disk, facet arthropathy, and ligamentous hypertrophy result in contact traversing bilateral S1 nerve roots and severe foraminal stenosis. Sacrum and iliac wings: Visible sacrum and iliac wings are normal. Presacral soft tissues within normal limits. Impression: IMPRESSION: Acute compression fracture deformity L1 vertebral body. Multilevel degenerative changes. Ventilating Expert: PEYTON Transcribe Date/Time: Mar 28 2016 1:02P Dictated by : ELENITA REYES MD This examination was interpreted and the report reviewed and electronically signed by: ELENITA REYES MD on Mar 28 2016 1:06PM EST DATE PROCEDURE % OF IMPROVEMENT (DURATION) None Physical Exam: 09/14/22 1100 Pulse: 71 Resp: 18 SpO2: 95% Constitutional: well appearing Eyes: Conjunctiva clear. No discharge from eyes Cardiovascular: Appears well perfused Lymphatic: No visible regional lymphadenopathy Skin: No visible rashes or ecchymosis Psychiatric: Full affect, Alert, Pleasant Palpation: (-) Midline cervical thoracic/lumbosacral spine tenderness (+)Thoracic/Lumbosacral paraspinal muscle tenderness (-) SIJ tenderness (-) piriformis muscle tenderness (-) Greater trochanter tenderness bilaterally ROM: Lumbar spine: flexion, extension, side-bending, rotation all full and painless Manuevers: (-) SLR negative bilaterally (+) Facet loading (Diamond's Test) bilaterally (-) Pio's/FABERs bilaterally (-) Dylan Finger Test to SIJ on two attempts Cervical spine: (-) Spurling's negative bilaterally (-) L'Hermitte's sign negative. ROM: Cervical spine: rotation, side-bending extension and flexion of cervical spine smooth and painless. Muscles: muscle spasm, trigger points, atrophy, fasciculation not appreciated 4/5 strength in all lower extremity myotomes, otherwise 5/5 strength in all upper extremity myotomes. Gait normal. Heel and toe gait normal. Neuro: Reflexes: DTRs 2+ in biceps, triceps, brachialis, patellar and achilles bilaterally. Whitfield's and Babinski negative bilaterally. No clonus. Sensation: grossly intact to light touch, cold, pin prick; no presence of allodynia, hyperesthesia,hypoesthesia, hyperpathia Diagnoses: No diagnosis found. Impression: Elza Chu is a 76 year old year-old female with Atrial fibrillation, s/p AVR x2 on Coumadin (INR goal 2.5-3.5), compression fracture (T11, T12, L1 and L3 compression fracture), HL, HTN, asthma,migraines, 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 Patients history, physical exam and imaging are concerning for multifactorial pain including components of: lumbar neuroforaminal stenosis (on imaging, with multilevel moderate to severe NF stenosis on MRI L-spine from 2015), lumbar facet arthropathy (on imaging, with multilevel facet arthropathy seen on prior CT L-spine from 2021) iso of known multiple compression fractures at T11, T12, L1 and and L3 and significant thoracolumbar scoliosis. She further has c/f lumbar spinal stenosis (CT L-spine notable for mild L3-4 and L4-5 stenosis). Patient reports a significant increase in pain 4 weeks prior c/f new or worsening compression fracture. Plan was made to obtain a repeat XR T- and L- spine to assess for an acute fracture She further reports bilateral LE weakness for which she would benefit from a CT L-spine (pt reports she will be unable to tolerate a MRI L-spine due to significant lumbar spine pain). Plan: Elza Chu would benefit from the following to reach personal goals for decreasing pain,improving function and work participation, and/or improving quality of life: Interventional Procedure(s): none The risks, benefits, alternative treatment options and prognosis of the procedure were discussed and all of the patient's questions/concerns were addressed to the patient's satisfaction. The patient expressed understanding and gave verbal consent to proceed. Medication(s): - start Tylenol 1gm BID - Diclofenac 1% gel - start Lyrica 25mg QHS only (unable to tolerate NSAIDs) Additional Studies: CT L-spine XR T-spine XR L-spine Referrals: No additional considerations at present Functional Buddhist:No changes-continue current regimen Depending on response to the above-mentioned plan of care, in the future may consider evaluation for: LARISSA vs MBBs pending CT L-spine -Follow-up: 3 weeks for imaging review Attribution: In addition to reviewing the information noted above, some elements copied from my most recent clinical note(s), including the physical exam (completed in entirety today), and the impression and plan sections, have been updated where appropriate. All reflect current medical decision making from today's date (noted above). Gilberto Virk MD PhD Pain Management [facility] * Tiki Reyna LPN - 09/14/2022 10:44 AM EST Review of Systems Constitutional: Positive for activity change and unexpected weight change. Negative for appetite change, chills and fever. Genitourinary: Positive for difficulty urinating. Musculoskeletal: Positive for arthralgias, back pain, gait problem, joint swelling, myalgias and neck pain. Neurological: Positive for weakness, numbness and headaches. Psychiatric/Behavioral: Positive for dysphoric mood. Negative for sleep disturbance and suicidal ideas. The patient is nervous/anxious. documented in [facility] History of Present illness Narrative* Tien Zhang MD - 09/13/2022 10:37 AM EST IMPRESSION 76-year-old female with clot in the right ear canal which was removed. Patient has chronic pansinusitis with nasal crusting. Her sinuses is not controlled likely due to medication noncompliance. RECOMMENDATION/PLAN I recommend patient continue with saline irrigation 5-6 times a day, budesonide irrigation and mupirocin irrigation. I will see her back in 6 weeks for follow- up. If she continues have significant nasal crusting and drainage after being compliant with her medication, and consider adding ciprofloxacin irrigation. Chief Complaint Chronic sinusitis and nasal crusting, right ear bleeding History of Present Illness Elza Chu is a 76 year old female with history of chronic sinusitis requiring multiple surgeries present for follow-up of chronic pansinusitis, nasal crusting, and blood clot in the right ear. Patient was last seen on August 01, 2022. At that time I recommend the patient apply hydrogen peroxide to the right ear. I also started on saline irrigation, budesonide, and mupirocin rinse. Patient stated that she tried the budesonide mupirocin but only for 3 weeks. She did not feel like it was helping her. She is using saline irrigation but only a few times a day. PAST MEDICAL HISTORY Diagnosis Date Adjustment disorder with depressed mood Aortic valve disorder Dr. Mckay Carotid stenosis Compression deformity of vertebra Congestive heart failure (HCC) COPD (chronic obstructive pulmonary disease) (HCC) 01/03/2013 Esophageal reflux Normal EGD 12/2012 H/O aortic valve replacement INR should be 2.5 to 3.5 High blood pressure Hyperlipidemia Impaired glucose tolerance Intrinsic asthma 06/[address] done per Dr. Mckay Migraine Myalgia and myositis, unspecified Other forms of migraine Parkinsonism (HCC) Thyroid nodule Unspecified essential hypertension PAST SURGICAL HISTORY Procedure Laterality Date ANTERIOR COLPORRAPHY RPR CYSTOCELE W/CYSTO 2001 w/ uterosacral suspension CARDIOVERSION [facility]- Spring 2019 CLOSURE SEMILUNAR VALVE AORTIC/PULM SUTURE/PATCH 2003 had aortic valve replacement w/ bovine valve COLONOSCOPY FLX DX W/COLLJ SPEC WHEN PFRMD 01/15/2013 Colonoscopy COLSC FLX W/RMVL OF TUMOR POLYP LESION SNARE TQ 05/07/2017 Colonoscopy - cecal inflammatory polyps. Repeat in 5 yrs DISPLACEMENT THERAPY PROETZ TYPE x3 ESOPHAGOGASTRODUODENOSCOPY TRANSORAL DIAGNOSTIC 01/15/2013 EGD ESOPHAGOGASTRODUODENOSCOPY TRANSORAL DIAGNOSTIC 05/07/2017 EGD FOOT RIGHT OP SURGERY 05/05/2009 HEMORRHOIDECTOMY XTRNL 2/> COLUMN/GROUP LAPS VAGINAL HYSTERECTOMY UTERUS 250 GM/< usvvs, enterocele repair,apr,lsc pvdr,cysto,spt LOW BACK DISK SURGERY 06/2011 OOPHORECTOMY PARTIAL/TOTAL UNI/BI PAST SURGICAL HISTORY OF 04/2012 Thyroid [id number] PAST SURGICAL HISTORY OF aug and september 2011 cataract removal PAST SURGICAL HISTORY OF 2013 aortic valve with On-X valve PERCUTANEOUS AORTIC VALVE REPLACEMENT 09/2013 POSTERIOR COLPORRHAPHY, REPAIR RECTOCELE 2001 SINUS SURGERY PROC UNLISTED [address] Styles ([place]), [address] Wood, 1 in [place] TONSILLECTOMY PRIMARY/SECONDARY <AGE 12 TOTAL ABDOMINAL HYSTERECT W/WO RMVL TUBE OVARY age 31 FAMILY HISTORY Problem Relation Age of Onset Heart Mother Heart Father Diabetes Brother Hypertension Brother Lipids Brother Lipids Daughter other (Depression) Daughter GI Son Lipids Son Diabetes Sister Lipids Sister CURRENT OUTPATIENT MEDICATIONS Current Outpatient Medications on File Prior to Visit Medication Sig BREO ELLIPTA 200-25 mcg/dose inhaler INHALE 1 PUFF BY MOUTH ONCE DAILY PARoxetine (PAXIL) 20 mg tablet Take 1 tablet by mouth once daily. montelukast (SINGULAIR) 10 mg tablet Take 1 tablet by mouth daily at bedtime. LORazepam (ATIVAN) 1 mg tablet Take 0.5 tablets by mouth twice daily for 90 days. ferrous sulfate 325 mg (65 mg iron) tablet Take 1 tablet by mouth twice daily with meals. SPIRIVA RESPIMAT 2.5 mcg/actuation inhaler INHALE 2 SPRAYS BY MOUTH ONCE DAILY AT APPROXIMATELY THESAME TIME EACH DAY ergocalciferol 50,000 unit capsule (VITAMIN D2, DRISDOL) Take 1 capsule by mouth one time a week. furosemide (LASIX) 40 mg tablet Take 1 tablet by mouth once daily. buPROPion XL (WELLBUTRIN XL) 150 mg 24 hr tablet Take 1 tablet by mouth once daily. warfarin (COUMADIN) 3 mg tablet 2.5 mg MW and 4.5 mg all other days or as directed (Patient taking differently: 4.5 mg Tues/Thurs and 2.5 mg all other days) warfarin (COUMADIN) 2.5 mg tablet 2.5 mg MWF and 4.5 mg all other days or as directed (Patient taking differently: 4.5 mg Tues/Thurs and 2.5 mg all other days) pantoprazole DR (PROTONIX) 40 mg tablet Take 1 tablet by mouth twice daily. potassium chloride ER (K-DUR, KLOR-CON) 20 mEq tablet Take 1 tablet by mouth once daily. albuterol (PROVENTIL) 2.5 mg /3 mL (0.083 %) nebulizer solution Use 3 mL via nebulizer every 6 hours as needed for wheezing/shortness of breath. DX: J45.40 Hx of moderate persistent Asthma warfarin (COUMADIN) 2.5 mg tablet 2.5 mg Mon/Sun, 4.5 mg all other days or as directed amiodarone (PACERONE) 200 mg tablet Take 100 mg by mouth once daily. albuterol HFA (PROAIR HFA) 90 mcg/actuation inhaler Inhale 2 Puffs as instructed every 4 hours as needed. budesonide-formoterol (SYMBICORT) 160-4.5 mcg/actuation inhaler Inhale 2 Puffs as instructed twice daily. acetaminophen (TYLENOL EXTRA STRENGTH) 500 mg tablet Take 1 tablet by mouth every 4 hours as neededfor Pain. RANGE FREQ? Nebulizer NEBULIZER FOR HOME USE and necessary supplies. DX: Hypoxemia, Pneumonia and Hemoptisis pravastatin (PRAVACHOL) 80 mg tablet TAKE 1 TABLET BY MOUTH ONCE DAILY aspirin 81 mg chewable tablet Take 2 tablets by mouth once daily. metoprolol succinate XL, long acting, 50 mg 24 hr tablet Take 1 tablet by mouth once daily. ezetimibe(ZETIA 10 MG TAB) Take one(1) tablet daily. triamcinolone acetonide (NASACORT AQ) 55 mcg nasal inhaler Use 1 [place] in the nose once daily. (Patient not taking: Reported on 09/13/2022) Current Facility-Administered Medications on File Prior to Visit Medication bupivacaine 7.5 mg injection (SENSORCAINE) ALLERGIES ALLERGIES Allergen Reactions Adhesive Rash Blistering at site of application. Dextromethorphan Other: See Comments, Mental Status Change Risperidone Other: See Comments Sulfa (Sulfonamide * Other: See Comments Renal dysfunction. Childhood reaction. Generalized swelling Celebrex [Celecoxib] Other: See Comments Migraine headache. Aricept [Donepezil] Myalgia muscle pain and difficulty walking Compazine [Prochlor* Other: See Comments low BP Crestor [Rosuvastat* GI Upset Gabapentin Intolerance Confusion, when coupled with norco Lipitor [Atorvastat* Myalgia Lisinopril Cough No Latex Allergy [O* Oxycodone Itching Penicillins Other: See Comments Heart palpitations. No rash or itch. Can take cephalosporins Prozac [Fluoxetine * Other: See Comments hallucinating Ultram [Tramadol Hc* Itching Codeine Itching The remainder of the patient's history and review of systems is on the outpatient questionaire which was reviewed by me and placed in the outpatient chart. PHYSICAL EXAMINATION Appearance: General examination of the patient's external face, head and neck reveals no abnormalities. The patient is not retrognathic The patient's voice is strong and clear and they communicate easily. Ears: Right EAC impacted with large dried clot. After removal of the clot, TM appears to be intact the middle ear space appears healthy. Preop diagnosis: Cerumen impaction. It cannot be removed without magnification and multiple instrumentations requiring physician skills. Postoperative diagnosis: same CERUMEN REMOVAL: Cerumen was removed under otomicroscopy from the Right ear with instrumentation. Procedure: Nasal endoscopy with debridement In order to assess the patient's complaint of sinusitis and nasal crusting, nasal endoscopy was performed. Consent: verbal Anesthesia: topical lidocaine and Afrin After spraying the nose with topical 4% lidocaine and Afrin the nasal endoscope was passed. Findings: Septum was straight. Bilateral middle meatus with significant crusting. The crusting was debrided using a combination of straight and curved suction. Patient has a large antrostomy that were widely patent. There is significant amount of purulent drainage inside of bilateral maxillary sinus. This was removed using nasal suction. There was mild mucosal edema of the ethmoid cavity. Nasopharynx was patent. Tien Zhang MD I spent 35 minutes in the care of this patient including 30 minutes of direct patient evaluation and 5 minutes completing this note documented in this encounterWhite [facility]-06-[facility]23 History of Present illness Narrative* Kolby Kim MD - 09/04/2022 12:41 PM EST agree * Tia Mock RN - 09/01/2022 12:33 PM EST patient had inr completed at [facility] patients inr is 3.1 (patients inr range is 2.5-3.5) patient is currently taking 4.5mg Tues,Thurs,and 2.5mg all other days) patients last dose change was on 08/25/22 due to a high level of 3.9 (dose at that time was 4.5mg Tues,Thurs,Sat and 2.5mg all other days) patient has had no changes in medication and no missed doses and no change in diet Advised patient to continue on the same dose(s) and that they would only be contacted regarding dosage and follow up instructions after review with provider, if a change is needed. Written instructions given and patient verbalized understanding. Presently scheduled in 3 weeks (09/22/22) for follow up INR. documented in this encounterWhite Hospital02-05-[address] Rock [facility] September 03, 2022 9:59pm Note Date/Time September 03, 2022 5 :24pm [facility] Medical Records Department [address] [place] [address] Emergency Department Summary 09/03/22 MR#: [id number] Acct: [id number] Name: ELZA CHU Rep #:[id number] : 1945 76 From: Ben Rock MD PCP: Dr. Kolby Kim MD Status:REG E R Location: ED HPI History of Present Illness Chief Complaint: Shortness of Breath Detail of Chief Complaint: Patient was advised to come to the emergency department by nurse on-call fo Informant: patient and spouse/S.O. Onset/Context/Timing Onset: Days Context: gradual Timing: Continuous and Waxes and wanes Quality: Positive for Dyspnea on exertion, Orthopnea (Patient has slept in a bedat 45 degree angle for the past 2 to 3 years) and Wheezing; Negative for PND Current Severity: Mild Maximum Severity: Severe Worsened by: Exertion, Lying flat and Coughing Relieved by: Nothing and - (Patient states she wears oxygen at night. 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 She called her doctors office for an appointment for tomorrow. After the nurse business administration professor spoke to her she recommended she come to the emergency department because she was short of breath when she was talking over the phone. Patient denies history of PE or DVT. Patient denies leg pain, swelling discoloration. Patientdenies headache, visual, ocular auditory symptoms. Patient does have a productive cough of yellow to green sputum. It is not unusual for her to have aproductive cough of colored sputum. She denies abdominal pain, nausea, vomiting or diarrhea. She denies black or maroon-colored stool. She denies dysuria, frequency, urgency or hematuria. PE Risk Factors: Negative for Cancer, OCP + Smoking + > 35, Prior DVT or PE, Recent immobilization, Recent surgery or Recent travel Prior similar symptoms: Yes (COPD) Recent Illness/Hospitalization: No PFSH PFSH Medical History Allergic rhinitis Aneurysm, thoracic aortic Anxiety Aortic stenosis Asthma Atherosclerotic heart disease of [place] coronary artery without angina pectoris Bronchiectasis CAP (community acquired pneumonia) Chronic a-fib Chronic anticoagulation Chronic diastolic heart failure Chronic sinusitis Cough Depression Essential hypertension Fatigue GERD (gastroesophageal reflux disease) Hemoptysis Hiatal hernia History of cardioversion (~07/08/20) Hyperlipidemia Hypertension Hypoxemia shelter current use of amiodarone 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 Nonrheumatic aortic valve regurgitation Nonspecific chest pain Obesity Palpitations Severe sepsis Syncope and collapse Home Medications pantoprazole 40 mg tablet,delayed release 40 mg PO BID ACID REFLUX 01/14/15 [History Last Taken 07/07/20] bupropion HCl 150 mg 24 hr tablet, extended release 150 mg PO DAILY DEPRESSION 11/15/15 [History Last Taken 07/07/20] montelukast 10 mg tablet 10 mg PO QHS ALLERGIES 05/03/17 [History Last Taken 07/06/20] potassium chloride 20 mEq tablet,extended release(part/cryst) 20 meq PO DAILY SUPPLEMENT 05/03/17 [History Last Taken 07/06/20] aspirin 81 mg chewable tablet 162 mg PO DAILY HEART HEALTH 09/04/17 [History Last Taken 07/07/20] lorazepam 0.5 mg tablet 0.5 mg PO BID PRN ANXIETY 09/04/17 [History Last Taken 07/07/20] furosemide 40 mg tablet 40 mg PO DAILY WATER PILL ##0 12/06/17 [Rx Last Taken 07/06/20] cholecalciferol (vitamin D3) 1,250 mcg (50,000 unit) capsule 50,000 unit PO FR SUPPLEMENT 06/16/19 [History Last Taken 06/25/20] acetaminophen 650 mg tablet,extended release 650 mg PO Q6H PRN BACK PAIN 07/07/20 [History Last Taken 07/07/20] albuterol sulfate 2.5 mg/3 mL (0.083 %) solution for nebulization 2.5 mg (3 mL) inhalation Q4H PRN #25 vials 05/21/21 [Rx Last Taken Unknown] triamcinolone acetonide 55 mcg nasal spray aerosol (Nasacort) 1 spray intranasalDAILY #16.9 mL 06/10/21 [Rx Last Taken Unknown] tiotropium bromide 2.5 mcg/actuation mist for inhalation (Spiriva Respimat) 2 puff inhalation QDAY #3 ea 09/07/21 [Rx Last Taken Unknown] ezetimibe 10 mg tablet 10 mg PO DAILY #90 tabs 09/22/21 [Rx Last Taken Unknown] albuterol sulfate 90 mcg/actuation aerosol inhaler 2 puff inhalation Q4H PRN shortness of breath or wheezing #8.5 grams 10/04/21 [Rx Last Taken Unknown] famotidine 20 mg tablet 20 mg PO DAILY PRN 11/29/21 [History Last Taken Unknown] ferrous sulfate 325 mg (65 mg iron) tablet 325 mg PO BID 11/29/21 [History Last Taken Unknown] paroxetine HCl 20 mg tablet 10 mg PO BID 11/29/21 [History Last Taken Unknown] warfarin 2.5 mg tablet 4.5 mg PO WEFR blood thinner 11/29/21 [History Last Taken Unknown] warfarin 3 mg tablet 4.5 mg PO SUMOTUTHSA BLOOD THINNER 11/29/21 [History Last Taken Unknown] guaifenesin 1,200 mg tablet, extended release 12 hr 1,200 mg PO Q12H #60 tabs 04/04/22 [Rx Last Taken Unknown] metoprolol succinate 50 mg tablet,extended release 24 hr See Rx Instructions .Route .COMPLEX #90 tabs 07/03/22 [Rx Last Taken Unknown] doxycycline monohydrate 100 mg capsule 100 mg PO BID #14 CAPSULES 08/07/22 [Rx Last Taken Unknown] fluticasone furoate 200 mcg-vilanterol 25 mcg/dose inhalation powder (Breo Ellipta) 1 inh inhalation DAILY #60 ea 08/07/22 [Rx Last Taken Unknown] prednisone 20 mg tablet 40 mg PO DAILY #14 TABLETS 08/07/22 [Rx Last Taken Unknown] amiodarone 200 mg tablet 100 mg PO DAILY #45 tabs 08/28/22 [Rx Last Taken Unknown] pravastatin 80 mg tablet 80 mg PO QHS CHOLESTEROL LOWERING #90 tabs 08/28/22 [Rx Last Taken Unknown] doxycycline monohydrate 100 mg capsule 100 mg PO BID #14 CAPSULES 09/03/22 [Rx Last Taken Unknown] prednisone 20 mg tablet 60 mg PO DAILY #15 TABLETS 09/03/22 [Rx Last Taken Unknown] Allergy/AdvReac Type Severity Reaction Status Date / Time donepezil Allergy Severe shortness Verified 09/03/22 16:59 of breath risperidone Allergy Severe Confusion Verified 09/03/22 16:59 Sulfa (Sulfonamide Allergy Swelling Verified 09/03/22 16:59 Antibiotics) celecoxib [From Celebrex] AdvReac Severe Swelling Verified 09/03/22 16:59 dextromethorphan AdvReac Severe hallucinati Verified 09/03/22 16:59 [From Delsym] on adhesive AdvReac blisters Verified 09/03/22 16:59 codeine AdvReac Itching Verified 09/03/22 16:59 levofloxacin [From Levaquin] AdvReac pain in Verified 09/03/22 16:59 legs and swelling lisinopril AdvReac cough Verified 09/03/22 16:59 oxycodone [Oxycodone] AdvReac Itching Verified 09/03/22 16:59 oxycodone HCl [From Percocet] AdvReac Itching Verified 09/03/22 16:59 Penicillins AdvReac heart Verified 09/03/22 16:59 palpitations prochlorperazine edisylate AdvReac Low blood Verified 09/03/22 16:59 [From Compazine] pressure prochlorperazine maleate AdvReac Low blood Verified 09/03/22 16:59 [From Compazine] pressure tramadol HCl [From Ultram] AdvReac Itching Verified 09/03/22 16:59 Family History Mother Arthritis CAD (coronary artery disease) Father Arthritis High cholesterol CAD (coronary artery disease) Sister Diabetes High cholesterol Hypertension Brother Diabetes High cholesterol Hypertension Surgical History H/O aortic valve replacement History of back surgery History of foot surgery History of hysterectomy History of mechanical aortic valve replacement (~10/07/13) History of sinus surgery Social History (Updated 09/03/22 @ 17:[address] Ben Rock MD) household members: spouse Smoking Status: Never smoker alcohol intake: never substance use type: does not use caffeine: Yes Type: coffee what type of physical activity do you participate in: none seatbelt use: always do you feel safe at home: Yes ROS ROS ED Constitutional Constitutional ED: Denies chills, fever(s), sweats or weight loss Eyes Eyes: Denies blurry vision, change in vision or diplopia ENT ENT ED: Reports rhinorrhea and sore throat; Denies ear pain Cardiovascular Cardiovascular: Denies chest pain, orthopnea, palpitations, paroxysmal nocturnaldyspnea or racing heartbeat Respiratory/Chest Respiratory/Chest: Reports cough, dyspnea, dyspnea on exertion and sputum; Denies orthopnea or paroxysmal nocturnal dyspnea Gastrointestinal Gastrointestinal: Denies abdominal pain, melena, nausea or vomiting Genitourinary Genitourinary ED: Denies dysuria, hematuria or urinary frequency Musculoskeletal Musculoskeletal: Denies arthralgias, back pain, myalgias or neck pain Integumentary Denies Abrasions or rash Neurologic Neurologic: Reports weakness; Denies headache(s) or paresthesias Endocrine Endocrinology: Denies cold intolerance or heat intolerance Hematologic/Lymphatic Hematologic/Lymphatic: Denies easy bleeding or easy bruising Allergic/Immunologic Allergic/Immunologic ED: Denies mouth swelling, tongue swelling or urticaria EXAM Physical Exam Const Vital Signs: 09/03/22 16:57 09/03/22 17:34 09/03/22 17:34 Temperature 98.7 F Temperature Source Oral Pulse Rate 78 74 Respiratory Rate 22 H 16 18 Respiratory Effort Short of Breath Respiratory Pattern Blood Pressure 170/82 H Blood Pressure Mean 111 Pulse Ox 93 97 Oxygen Delivery Method Nasal Cannula Nasal Cannula Oxygen Flow Rate (L/min) 2 2 09/03/22 17:36 09/03/22 17:31 09/03/22 18:05 Temperature Temperature Source Pulse Rate Respiratory Rate Respiratory Effort Short of Breath Respiratory Pattern Blood Pressure Blood Pressure Mean Pulse Ox 97 92 Oxygen Delivery Method Nasal Cannula Room Air Oxygen Flow Rate (L/min) 2 09/03/22 18:05 09/03/22 18:49 09/03/22 18:50 Temperature Temperature Source Pulse Rate 80 75 82 Respiratory Rate 19 H 22 H 16 Respiratory Effort Respiratory Pattern Normal Blood Pressure 133/69 H Blood Pressure Mean 90 Pulse Ox 96 Oxygen Delivery Method Oxygen Flow Rate (L/min) Positive well nourished and well developed Constitutional Narrative: Patient appears ill. General Appearance ED: well developed and NAD; Negative for pallor HEENT Reports moist mucous membranes HEENT Narrative: Atraumatic normocephalic. Ears normal. Nares with clear drainage. Posterior pharynx out erythema or exudate. Uvula midline. There is no angioedema. Eyes PERRL and EOMs intact bilaterally General Eye ED: Negative for pale conjunctiva or scleral icterus Neck no lymphadenopathy, supple, no meningeal signs and no JVD Resp No normal respiratory effort and No clear to auscultation bilaterally Resp Narrative: There is no egophony or increased vocal fremitus. Auscultation: rales right base and wheezes expiratory wheezes and throughout (Bilaterally.) Cardio regular rate, regular rhythm, S1 normal heart sound, S2 normal heart sound and no murmurs GI non-tender, non-distended and no masses Auscultation: normoactive bowel sounds Palpation: soft Back/Spine no CVA tenderness and normal to inspection Extremity normal to inspection Extremity Narrative: Tumor millimeter depression/pitting edema right and left lower extremity. Thereis no asymmetry of the legs, discoloration, leg vein distention, palpable cord sounds on the distribution deep venous system. She states that the swelling is a chronic issue. General Extremety ED: Yes edema General Extremity: edema Neuro oriented x3, CN's II-XII intact bilaterally and no sensory deficits noted [place] Coma Scale: document GCS findings Spontaneous Obeys Commands Oriented 15 Sensorium / Orientation: alert Speech: speech normal Skin no wounds and skin turgor normal General Skin Exam: Negative for jaundice or pallor MDM MDM MDM Narrative Medical decision making narrative: Patient presents with respiratory symptoms. Differential is exacerbation of COPD with chronic bronchitis versus pneumonia with bronchospasm. Since patient was recently treated with prednisone, 3 weeks ago, she was treated with DuoNeb, albuterol and Solu-Medrol. Chest x-ray is obtained to evaluate for pneumonia and rule out pneumothorax. CBC to assess white count and rule out anemia as a cause of her dyspnea. BNP since she has had abnormal creatinine levels in the past. Patient was reassessed at 1834. She has received 1 DuoNeb and 1 albuterol treatment. She is receiving her third albuterol treatment. Patient's breathingis not labored. She has minimal wheezing at this time. Her lung exam is improved markedly. She was informed of her laboratory results and chest Schultes. Since patient has improved markedly she will be able to be dischargedwith close follow-up versus admission. Initially thought was the patient will require admission to the hospital. Patient was reassessed at 2146. There is no use of accessory muscles. Her breathing has improved immensely. There is no wheezing. Plan is discharged with prescription for doxycycline and burst of prednisone. She is to follow-up with her territory manager. She does have [place]. Her saturation was above 91% with ambulation. Lab Data Attestation: I reviewed the patient's lab results. Lab results narrative: White count is upper end of normal. Differential is unremarkable. Basic metabolic panel is unremarkable. Labs: Laboratory Results - last 24 hr 09/03/22 09/03/22 17:11 17:11 WBC 10.0 RBC 4.58 Hgb 13.1 Hct 42.6 MCV 93.0 MCH 28.6 MCHC 30.8 L RDW Std Deviation 46.2 H RDW Coeff of Loki 13.6 Plt Count 283 MPV 10.7 Immature Gran % (Auto) 0.300 Neut % (Auto) 78.9 H Lymph % (Auto) 10.8 L [place] % (Auto) 6.7 Eos % (Auto) 2.9 Baso % (Auto) 0.4 Absolute Neuts (auto) 7.9 H Absolute Lymphs (auto) 1.08 Nucleated RBC % 0 Sodium 142 Potassium 3.5 Chloride 105 Carbon Dioxide 31.0 Anion Gap 6 BUN 13 Creatinine 0.92 Estim Creat Clear Calc 36.78 Est GFR (MDRD) Af Amer 76 Est GFR (MDRD) Non-Af 63 BUN/Creatinine Ratio 14.2 Glucose 89 Calcium 9.3 Radiography Chest X-Ray - ED: 2 View and Read by ED Physician (There are chronic changes noted. Sternotomy wires noted. There is increased density left lower lobe. There is no evidence of an effusion. There appears to be a hiatal hernia.) Diagnostic Testing: Clinical Impression(s) from Imaging Studies Chest X-Ray 09/03/22 17:19 IMPRESSION: 1. Postop change of prior CABG without evidence of congestive failure. 2. Worsening area of atelectasis and infiltrate at the LEFT lung base. Small LEFT effusion is noted. 3. There is a lucency at the LEFT lung base/LEFT CP angle however no definitive pleural line is noted. 4. Minimal atelectasis at the RIGHT base. Electronically Signed: Andre Morales MD at 17:36 EST , EKG Initial EKG: Attestation: I personally reviewed and interpreted this EKG as follows: Interpretation: Sinus Rhythm (Rate is 75. EKG is normal. [place] interval is 140 ms. QS duration 82 ms. QT duration 402 ms. [place] is normal) Discharge Plan Triage Chief Complaint: Shortness of Breath Other Complaint: Cough ED Provider: Ben Rock Dx/Rx/DC Orders Clinical Impression: Acute exacerbation of chronic bronchitis, Acute exacerbation of chronic obstructive pulmonary disease (COPD), Acute bronchospasm, Atelectasis, Essentialhypertension, History of mechanical aortic valve replacement Instructions: ED COPD Flare Prescriptions: New prednisone 20 mg tablet 60 mg PO DAILY Qty: 15 0RF doxycycline monohydrate 100 mg capsule 100 mg PO BID Qty: 14 0RF No Action cholecalciferol (vitamin D3) 50,000 unit capsule 50,000 unit PO FR albuterol sulfate 90 mcg/actuation HFA aerosol inhaler 2 puff inhalation Q4H PRN (Reason: shortness of breath or wheezing) Qty: 8.5 6RF Rx Instructions: administer with spacer ferrous sulfate 325 mg (65 mg iron) tablet 325 mg PO BID Label Comments: TAKE 1 TABLET BY MOUTH TWICE DAILY WITH MEALS guaifenesin 1,200 mg tablet extended release 12hr 1,200 mg PO Q12H Qty: 60 6RF pantoprazole 40 MG tablet 40 mg PO BID Label Comments: stomach aspirin 81 MG tablet,chewable 162 mg PO DAILY Label Comments: blood thinner/heart lorazepam 0.5 MG tablet 0.5 mg PO BID PRN (Reason: ANXIETY) Label Comments: anxiety bupropion HCl 150 MG tablet extended release 24 hr 150 mg PO DAILY Label Comments: depression potassium chloride 20 MEQ tablet 20 meq PO DAILY montelukast 10 MG tablet 10 mg PO QHS furosemide 40 MG tablet 40 mg PO DAILY Qty: 0 0RF acetaminophen 650 MG tablet extended release 650 mg PO Q6H PRN (Reason: BACK PAIN) warfarin 2.5 mg tablet 4.5 mg PO WEFR Rx Instructions: Managed by PCP warfarin 3 mg tablet 4.5 mg PO SUMOTUTHSA Rx Instructions: Managed by PCP famotidine 20 mg tablet 20 mg PO DAILY PRN Label Comments: TAKE 1 TABLET BY MOUTH AT BEDTIME NEEDED paroxetine HCl 20 mg tablet 10 mg PO BID albuterol sulfate 2.5 MG/3 ML solution for nebulization 2.5 mg inhalation Q4H PRN Qty: 25 0RF Rx Instructions: Use q4 hours and PRN for wheezing prednisone 20 mg tablet 40 mg PO DAILY Qty: 14 0RF doxycycline monohydrate 100 mg capsule 100 mg PO BID Qty: 14 0RF triamcinolone acetonide [Nasacort] 55 mcg aerosol,spray 1 spray INTRANASAL DAILY Qty: 16.9 6RF Spiriva Respimat 2.5 mcg/actuation mist 2 puff inhalation QDAY Qty: 3 3RF Rx Instructions: administer at approximately the same time(s) each day ezetimibe 10 mg tablet 10 mg PO DAILY Qty: 90 3RF metoprolol succinate 50 mg tablet extended release 24 hr See Rx Instructions .ROUTE .COMPLEX Qty: 90 3RF Dose Instruction: TAKE 1 TABLET BY MOUTH DAILY FOR BLOOD PRESSURE Rx Instructions: TAKE 1 TABLET BY MOUTH DAILY FOR BLOOD PRESSURE fluticasone furoate-vilanterol [Breo Ellipta] 200-25 mcg/dose blister with device 1 inh inhalation DAILY Qty: 60 11RF pravastatin 80 mg tablet 80 mg PO QHS Qty: 90 3RF amiodarone 200 mg tablet 100 mg PO DAILY Qty: 45 4RF Primary Care Provider: Kolby Kim Referrals: Kolby Kim MD [Primary Care Provider] - 3-5 Days Disposition Disposition: Home, Self Care What to do if you have Problems For any increased pain, shortness of breath, bleeding, nausea or vomiting, chestpain, or any unexpected problems, contact your Primary Care Provider. Call [facility] ([phone]) or report to the closest Emergency Room. Call 911 if necessary. 09/03/222156 <Electronically signed by Ben Rock MD> Cosigner Signature (if applicable): CC: Dr. Kolby Kim MD ~ Signed ADDENDUM by Dr. Ben Rock MD on 09/03/22 at 2158 EKG reveals a normal sinus rhythm rate of 75. EKG is normal. AZ interval 240 ms. QS duration 82 ms. QT duration 402 ms. [place] is normal 09/03/222158<Electronically signed by Ben Rock MD> Cosigner Signature (if applicable): cc: Dr. Kolby Kim MD ~* Signed [facility] Work Phone: [phone]) [phone] Miscellaneous Notes* Telephone Encounter - Tamia Weber RN - 09/03/2022 4:06 PM EST Reason for Call: Chest pain/difficulty breathing Patient call to make an appointment, she states with AC that she has chest pain yet when she is connected to [facility] she dances around symptoms. Due to her labored breathing I began to ask if this is howshe normally breaths. She states no, I ask if she wears O2 with states at night and asks if she hasa SpO2 monitor. She is 73% on room air and after getting 02 on she is 78% with heart rate in the mid 100's. Her breathing is becoming more labored, talking is becoming more difficult and wheezing is audible. Her arrives and soon after the EMS. Outcome: CALL 911 NOW recommendation given, patient declines and wants to take her but he is walking the dog. Yet because she sees the SpO2 reading (she agrees and asked for help) and symptoms become worse patient is not in the physical state were she can call on her own. [facility] has will stay on line while John [facility] will call 911. Squad has arrived, will disconnect the call. Reason for Disposition Sounds like a life-threatening emergency to the triager [1] Pain in the upper back over the ribs (rib cage) AND [2] worsened by coughing (or clearly increases with breathing) SEVERE difficulty breathing (e.g., struggling for each breath, speaks in single words) Protocols used: Back [id number]-AW, Chest Ilby-SFHYD-GQ documented in this encounterWhite Hospital02-02-2023 History of Present illness Narrative* Sunny Estrella RN - 08/31/2022 12:58 PM EST INSIGHT CDM TELEPHONIC OUTREACH Provider Action/FYI: Healthy at home reinforced CKD/COPD/CHF Having aches/pains in ribs hands. Takes vitamin D and calcium for osteoporosis. Recent visit with PCP 07/25- addressed declined additional management Had followed with specialist in [place] but had since retired. Currently has appointment to address with new provider in spine clinic-09/14 Using heat and tylenol which is helping a little. Contact made with patient: Yes Patient identified by name and . Discussed care with patient It s nice talking to you again. As a reminder, this is our bi-weekly check-in where I will be asking you questions about your health. This will only take a few minutes of your time. Is this a good time? Yes Symptoms What Chronic Disease(s) does the patient have: CHF, CKD, and COPD Do you check your blood pressures at home? No Do you have new or worse shortness of breath with activity? No Do you have new or worsening trouble breathing while lying flat? No Do you have new or worsening swelling of legs, feet or ankles? No Do you feel like you are dehydrated for any reason, including not being able to eat or drink normally, or having less urine/much darker urine than normal for you? No Do you check your daily weight at home? No and Do you have new or worsening cough? No Do you have new or worsening wheezing? No Do you need to use your rescue (Albuterol) inhaler or nebulizer more often than normal? No Are you having any other symptoms that your PCP needs to know about? No Symptoms: none Symptom Escalation ROMELIA Education Ordered -: No The patient required an escalation for symptom(s)? No Medications Do you have any questions about taking your medication or which medications you should be on? No Do you need any medication refills at this time, including any of the medications you might take only when needed? No Social We would like to make sure you have what you need so that your basic needs are met- including your personal safety, food, housing, transportation and medications? Would you like to speak with a social work seam steamer to help give you support for any of these needs? No It can be normal to feel anxious or down during a time like this. Would you like to talk to a mental health professional about how you have been feeling? No Closing Thank you for taking the time to talk with me today. We want to work with you to ensure that we arekeeping your medical condition(s) well-controlled and to keep you healthy and out of the doctor's office or hospital. It s also not too late for me to sign you up for automated weekly questionnaires through [employer]. This is an easy way for us to stay connected each week. Are you interested? No, I understand. We can always sign you up in the future if you change your mind. Just as a reminder, will continue to call you every other week to check in on your health. Our calls should take 10-15 minutes or less. Remember, if you have concerns in between our calls, please call your PCP's office right away. Thank you. Enter next patient outreach date for two weeks on the same day of the week as today in the Track PtOutreach and End outreach. documented in this encounterWhite Hospital01-30-2023 Miscellaneous Notes* Telephone Encounter - Monique Rose RN - 08/28/2022 9:32 AM EST Patient has been identified by name and date of : Yes Patient phones for refill(s): Requested Prescriptions Pending Prescriptions Disp Refills PARoxetine (PAXIL) 20 mg tablet 90 tablet 3 Sig: Take 1 tablet by mouth once daily. montelukast (SINGULAIR) 10 mg tablet 90 tablet 3 Sig: Take 1 tablet by mouth daily at bedtime. Date of last office visit in primary care: Last 2 Encounter Wt Readings: Date: Wt: 07/27/2022 59.1 kg (130 lb 6.4 oz) 07/06/2022 59.4 kg (131 lb) Previous labs/tests for medication: Blood Counts: WBC (k/uL) Date Value 07/08/2022 8.75 09/01/2021 7.03 RBC (m/uL) Date Value 07/08/2022 5.06 09/01/2021 5.20 Hematocrit (%) Date Value 07/08/2022 47.8 09/01/2021 48.2 Hemoglobin (g/dL) Date Value 07/08/2022 14.8 09/01/2021 14.4 Platelet Count (k/uL) Date Value 07/08/2022 343 09/01/2021 278 Liver Function: ALT (U/L) Date Value 07/08/2022 10 09/01/2021 21 AST (U/L) Date Value 07/08/2022 22 09/01/2021 27 Please advise. Thank you. Monique Rose RN documented in this encounterWhite Hospital01-27-2023 History of Present illness Narrative* Earlene Perez LPN - 08/25/2022 2:05 PM EST Left detailed message. Tracker updated. * Kolby Kim MD - 08/25/2022 1:03 PM EST Change to 2.5 except 4.5 on T, TH. Recheck one week * Tia Mock RN - 08/25/2022 12:52 PM EST patient had inr completed at [facility] patients inr is 3.9 (patients inr range is 2.5-3.5) patient is currently taking 4.5mg Tues,Thurs,Sat and 2.5mg all other days) patients last dose change was on 06/06/22 due to a low level of 2.2 (dose at that time was 4.5mg Tues,Sat and 2.5mg all other days) patient has had a change in medication as patient just completed doxy and prednisone 1 week ago andno missed doses of coumadin and no change in diet patient has been instructed to hold coumadin until contacted Advised patient that they would be contacted regarding medication dose and when to follow up after information is reviewed by provider. After provider review please contact the patient with information and schedule follow up appointment with coumadin clinic. ok to leave a detailed message if no answer FYI- patient has been scheduled for a 1 week follow up inr on 09/01/22 documented in this encounterWhite Hospital01-17-2023 Miscellaneous Notes* Telephone Encounter - Criss Jung Pss - 08/15/2022 9:47 AM EST Patient has been identified by name and date of : Yes Requested Prescriptions Pending Prescriptions Disp Refills ferrous sulfate 325 mg (65 mg iron) tablet 60 tablet 2 Sig: Take 1 tablet by mouth twice daily with meals. RX INSTRUCTIONS: Patient aware RX will be sent to pharmacy. No need to notify patient. Criss Jung Pss documented in this encounterWhite Hospital01-13-2023 History of Present illness Narrative* Kolby Kim MD - 08/11/2022 1:10 PM EST agree * Tia Mock RN - 08/11/2022 12:50 PM EST patient had inr completed at [facility] patients inr is 3.0 (patients inr range is 2.5-3.5) patient is currently taking 4.5mg Tues,Thurs,Sat and 2.5mg all other days patients last dose change was on 06/06/22 due to a low level of 2.2 (dose at that time was 4.5mg Tues,Sat and 2.5mg all other days) patient has had no changes in medication and no missed doses and no change in diet Advised patient to continue on the same dose(s) and that they would only be contacted regarding dosage and follow up instructions after review with provider, if a change is needed. Written instructions given and patient verbalized understanding. Presently scheduled in 2 weeks (08/25/22 - per patient choice) for follow up INR. documented in this encounterWhite Hospital01-03-2023 History of Present illness Narrative* Tien Zhang MD - 08/01/2022 11:00 AM EST This consult is seen at the kind request of Dr. Kolby Kim of family medicine, and my final recommendations will be communicated to the requesting health care provider by way of shared electronic medical record. This note is formatted with the impression and plan first and the history and physical to follow. IMPRESSION 76-year-old female with bleeding from the right ear, chronic sinusitis with active infection. RECOMMENDATION/PLAN Patient had a blood clot in her right ear canal. I recommend she starts hydroperoxide drops to the right ear twice a day for 2 weeks. For chronic sinusitis, I recommend starting a saline irrigation 5-6 times a day. I will also start her on mupirocin irrigation and budesonide irrigation. I will see her back in 6 weeks for follow-up. We will reassess her right ear at that time. Chief Complaint Bleeding from the right ear, chronic sinusitis. History of Present Illness Elza Chu is a 76 year old female presents for evaluation of bleeding from the right ear and chronic sinusitis. Patient is on Coumadin. She started noticing bleeding from the right ear about 1 week ago. She denies any hearing changes. Patient has history of chronic sinusitis and had 6 surgeries in the past. She is complaining of drainage from her nose and she feels like she may have nasal polyps. She does not use any irrigation in her nose but uses [id number] nasal spray. She does not remember the name of the spray. 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 PAST MEDICAL HISTORY Diagnosis Date Adjustment disorder with depressed mood Aortic valve disorder Dr. Mckay Carotid stenosis Compression deformity of vertebra Congestive heart failure (HCC) COPD (chronic obstructive pulmonary disease) (HCC) 01/03/2013 Esophageal reflux Normal EGD 12/2012 H/O aortic valve replacement INR should be 2.5 to 3.5 High blood pressure Hyperlipidemia Impaired glucose tolerance Intrinsic asthma 06/[address] done per Dr. Mckay Migraine Myalgia and myositis, unspecified Other forms of migraine Parkinsonism (HCC) Thyroid nodule Unspecified essential hypertension PAST SURGICAL HISTORY Procedure Laterality Date ANTERIOR COLPORRAPHY RPR CYSTOCELE W/CYSTO 2001 w/ uterosacral suspension CARDIOVERSION [facility]- Spring 2019 CLOSURE SEMILUNAR VALVE AORTIC/PULM SUTURE/PATCH 2003 had aortic valve replacement w/ bovine valve COLONOSCOPY FLX DX W/COLLJ SPEC WHEN PFRMD 01/15/2013 Colonoscopy COLSC FLX W/RMVL OF TUMOR POLYP LESION SNARE TQ 05/07/2017 Colonoscopy - cecal inflammatory polyps. Repeat in 5 yrs DISPLACEMENT THERAPY PROETZ TYPE x3 ESOPHAGOGASTRODUODENOSCOPY TRANSORAL DIAGNOSTIC 01/15/2013 EGD ESOPHAGOGASTRODUODENOSCOPY TRANSORAL DIAGNOSTIC 05/07/2017 EGD FOOT RIGHT OP SURGERY 05/05/2009 HEMORRHOIDECTOMY XTRNL 2/> COLUMN/GROUP LAPS VAGINAL HYSTERECTOMY UTERUS 250 GM/< usvvs, enterocele repair,apr,lsc pvdr,cysto,spt LOW BACK DISK SURGERY 06/2011 OOPHORECTOMY PARTIAL/TOTAL UNI/BI PAST SURGICAL HISTORY OF 04/2012 Thyroid ewdbyy-lmqkko-gounanzc PAST SURGICAL HISTORY OF aug and september 2011 cataract removal PAST SURGICAL HISTORY OF 2013 aortic valve with On-X valve PERCUTANEOUS AORTIC VALVE REPLACEMENT 09/2013 POSTERIOR COLPORRHAPHY, REPAIR RECTOCELE 2001 SINUS SURGERY PROC UNLISTED [address] Styles ([place]), [address] Wood, 1 in [place] TONSILLECTOMY PRIMARY/SECONDARY <AGE 12 TOTAL ABDOMINAL HYSTERECT W/WO RMVL TUBE OVARY age 31 FAMILY HISTORY Problem Relation Age of Onset Heart Mother Heart Father Diabetes Brother Hypertension Brother Lipids Brother Lipids Daughter other (Depression) Daughter GI Son Lipids Son Diabetes Sister Lipids Sister CURRENT OUTPATIENT MEDICATIONS Current Outpatient Medications on File Prior to Visit Medication Sig SPIRIVA RESPIMAT 2.5 mcg/actuation inhaler INHALE 2 SPRAYS BY MOUTH ONCE DAILY AT APPROXIMATELY THESAME TIME EACH DAY ferrous sulfate 325 mg (65 mg iron) tablet Take 1 tablet by mouth twice daily with meals. ergocalciferol 50,000 unit capsule (VITAMIN D2, DRISDOL) Take 1 capsule by mouth one time a week. furosemide (LASIX) 40 mg tablet Take 1 tablet by mouth once daily. buPROPion XL (WELLBUTRIN XL) 150 mg 24 hr tablet Take 1 tablet by mouth once daily. LORazepam (ATIVAN) 1 mg tablet Take 0.5 tablets by mouth twice daily for 90 days. warfarin (COUMADIN) 3 mg tablet 2.5 mg MW and 4.5 mg all other days or as directed (Patient taking differently: 4.5 mg Tues/Thurs and 2.5 mg all other days) warfarin (COUMADIN) 2.5 mg tablet 2.5 mg MWF and 4.5 mg all other days or as directed (Patient taking differently: 4.5 mg Tues/Thurs and 2.5 mg all other days) PARoxetine (PAXIL) 20 mg tablet Take 1 tablet by mouth once daily. pantoprazole DR (PROTONIX) 40 mg tablet Take 1 tablet by mouth twice daily. montelukast (SINGULAIR) 10 mg tablet Take 1 tablet by mouth daily at bedtime. potassium chloride ER (K-DUR, KLOR-CON) 20 mEq tablet Take 1 tablet by mouth once daily. albuterol (PROVENTIL) 2.5 mg /3 mL (0.083 %) nebulizer solution Use 3 mL via nebulizer every 6 hours as needed for wheezing/shortness of breath. DX: J45.40 Hx of moderate persistent Asthma warfarin (COUMADIN) 2.5 mg tablet 2.5 mg Sun/Sun, 4.5 mg all other days or as directed amiodarone (PACERONE) 200 mg tablet Take 100 mg by mouth once daily. albuterol HFA (PROAIR HFA) 90 mcg/actuation inhaler Inhale 2 Puffs as instructed every 4 hours as needed. budesonide-formoterol (SYMBICORT) 160-4.5 mcg/actuation inhaler Inhale 2 Puffs as instructed twice daily. acetaminophen (TYLENOL EXTRA STRENGTH) 500 mg tablet Take 1 tablet by mouth every 4 hours as neededfor Pain. RANGE FREQ? Nebulizer NEBULIZER FOR HOME USE and necessary supplies. DX: Hypoxemia, Pneumonia and Hemoptisis triamcinolone acetonide (NASACORT AQ) 55 mcg nasal inhaler Use 1 [place] in the nose once daily. pravastatin (PRAVACHOL) 80 mg tablet TAKE 1 TABLET BY MOUTH ONCE DAILY aspirin 81 mg chewable tablet Take 2 tablets by mouth once daily. metoprolol succinate XL, long acting, 50 mg 24 hr tablet Take 1 tablet by mouth once daily. ezetimibe(ZETIA 10 MG TAB) Take one(1) tablet daily. Current Facility-Administered Medications on File Prior to Visit Medication bupivacaine 7.5 mg injection (SENSORCAINE) ALLERGIES ALLERGIES Allergen Reactions Adhesive Rash Blistering at site of application. Dextromethorphan Other: See Comments, Mental Status Change Risperidone Other: See Comments Sulfa (Sulfonamide * Other: See Comments Renal dysfunction. Childhood reaction. Generalized swelling Celebrex [Celecoxib] Other: See Comments Migraine headache. Aricept [Donepezil] Myalgia muscle pain and difficulty walking Compazine [Prochlor* Other: See Comments low BP Crestor [Rosuvastat* GI Upset Gabapentin Intolerance Confusion, when coupled with norco Lipitor [Atorvastat* Myalgia Lisinopril Cough No Latex Allergy [O* Oxycodone Itching Penicillins Other: See Comments Heart palpitations. No rash or itch. Can take cephalosporins Prozac [Fluoxetine * Other: See Comments hallucinating Ultram [Tramadol Hc* Itching Codeine Itching The remainder of the patient's history and review of systems is on the outpatient questionaire which was reviewed by me and placed in the outpatient chart. PHYSICAL EXAMINATION Appearance: General examination of the patient's external face, head and neck reveals no abnormalities. The patient is not retrognathic The patient's voice is strong and clear and they communicate easily. Ears: Right EAC impacted with dried blood clot unable to visualize TM. Left EAC patent, TM intact, middle ear space appears healthy. Nose: External nasal exam was normal. Throat: There were no lesions to visualization or palpation of the lips, cheeks, gums, floor of mouth, tongue, hard and soft palate, tonsillar pillars or posterior pharyngeal wall. Neck: Palpation of the neck revealed no adenopathy, salivary gland masses or asymmetry, or thyroid masses or enlargement. Procedure: Nasal endoscopy with debridement In order to assess the patient's complaint of sinusitis, nasal endoscopy was performed. Consent: verbal Anesthesia: topical lidocaine and Afrin After spraying the nose with topical 4% lidocaine and Afrin the nasal endoscope was passed. Findings: Septum was inferiorly deviated to the left side. Left middle meatus with significant crusting whichwas removed using a straight suction and bayonet forceps. After removal of the crusting, there was significant purulent drainage coming from the left maxillary sinus. The ethmoid cavity appears to beclear. Right middle meatus with purulent drainage which was suctioned with a straight suction. Nasopharynx was patent. Tien Zhang MD documented in this encounterWhite Hospital12-30-2022 Miscellaneous Notes* Telephone Encounter - Olya Bullock Ma - 07/28/2022 10:41 AM EST Trent was notified and scheduled in 2 weeks at coumadin clinic Olya Bullock Ma * Telephone Encounter - Kolby Kim MD - 07/28/2022 10:27 AM EST Same. Recheck two weeks. * Telephone Encounter - Earlene Perez LPN - 07/28/2022 10:12 AM EST Last INR: INR 2.9 07/27/2022 Current dose of coumadin is: 4.5mg Tues, Thurs, Sat and 2.5mg all other days. Previous INR (date and result): 2.8 07/20/22 Additional Clinical Information or narrative: no documented in this [facility]12-29-2022 Instructions* Patient Instructions* Kolby Kim MD - 07/27/2022 11:12 AM EST Images from the original note were not included. Osteoporosis: Workouts that Can Help Rebuild Bone The right exercises can protect you from future fractures, too. Ever think of your bones in terms of architecture? Well, health professionals do -- bone is a living tissue that is constantly breaking down and rebuilding. Diseases that change bone architecture, such as osteoporosis, spell trouble. In osteoporosis, more bone gets broken down than built up, explains [facility] physical therapist Gwen Cee, PT. Osteoporosis is a major health concern, affecting half of all women and one-quarter of all men over age 50. Fortunately, exercise done properly can help to rebuild bone and reduce the likelihood of fracture,says Ms. Cee. Here are her recommendations for people with osteoporosis who have not had a fracture: Cardiovascular conditioning Cardiovascular workouts should involve bearing weight. So walking, jogging and dancing are preferable to swimming or biking, she says. It s also important to dial up your exercise intensity. To see improvements in bone density, heighten the intensity of your normal walking pace. In creasing your pace for short intervals or going up and down hills will place appropriate forces on your bones, she notes. Alternating higher-intensity exercises two to three days a week with lower- intensity activities four to five days a week is most effective. Strengthening exercises Work with free weights, use weight machines at the gym or do floor exercises to gain strength. Recent studies have confirmed that it s important to lift enough weight to stimulate bone growth, Ms. Cee says. Therefore, you will need to do fewer reps with heavier weights. Most of us don t lift as much weight as we could. To determine how much weight you should be lifting, search for a 1-Rep Max calculator available on many websites. Then aim for 70 to 80 percent of your 1 Rep Max. Remember that exercise is site-specific. So target the areas most prone to fracture: spine, hips and wrists. Weight training is recommended two to three times a week. Strengthen your spinal extensor muscles, which lie over the spine, to improve posture and reduce fracture risk by doing the following exercise daily: Stomp your feet to increase bone density in your hips. Do four stomps on each foot twice a day using enough pressure to crush a can. Stretching Lengthening tight muscles will reduce back pain, and promote good spinal mechanics and posture. Muscles that are commonly tight include those you use to arch your back (spinal extensors); raise and rotate your shoulders (shoulder elevators and external rotators); lift your knees (hip flexors); and pull your feet toward your body (ankle dorsiflexors). Perform stretches slowly and smoothly, to a point of stretch, not pain, Ms. Cee advises. For maximum benefit, do stretches once or twice a day. What to avoid Exercises that involve extending the spine, or arching backward, are generally safer than exercisesthat involve bending forward. That s because most spine fractures occur in a position of forward bending, says Ms. Cee. If you have already had an osteoporotic fracture, avoid exercises that involve forward bending or rotating the trunk. Yoga, Pilates: Helpful or not? You may have wondered if yoga or Pilates (core-strengthening) classes would be safe to do if you vegot osteoporosis. Ms. Cee advises caution: Yoga and Pilates are helpful for stretching and lengthening but includemany flexion-based (forward-bending) moves. If you are interested, she advises being careful and working with knowledgeable yoga and Pilates instructors. Fortunately, everyone with osteoporosis can develop a safe, effective personal exercise program -- even if they have had a fracture, she says. Ask your doctor whether a referral to a physical therapist might be worthwhile. We also recommend that you take 1200 to 1500 mg of calcium mixed with 400 international units of vitamin D on a daily basis. This can be purchased, without a prescription, from any drug store or grocery store. It is also well established that weight-bearing exercise (such as walking), combined with stopping smoking (if you smoke) and limiting alcohol intake, will greatly decrease your risk of bone fractures over your lifetime. To maintain good health, we would also recommend repeating this DEXAbone density scan in 2 years to make sure that the bone density is increasing. documented in this encounterWhite Hospital12-29-2022 History of Present illness Narrative* Kolby Kim MD - 07/27/2022 10:56 AM EST Patient presents with: Results: Bone density scan HPI: Patient presents today for office visit for follow up. Noted some blood on her pillow case. Last time was Sunday. Noted it on her pillow. Sometimes cannot hear as well. No pain. Last inr was at treatment level. Reviewed bone density: Last vit d was ok. Not very active. Discussed med options vs increasing activity etc. Given her polypharmacy SeeIMPRESSION: 1. 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 2. Osteopenia in the lumbar spine. bone density: MEDICATIONS: Current Outpatient Medications Medication Sig ferrous sulfate 325 mg (65 mg iron) tablet Take 1 tablet by mouth twice daily with meals. ergocalciferol 50,000 unit capsule (VITAMIN D2, DRISDOL) Take 1 capsule by mouth one time a week. furosemide (LASIX) 40 mg tablet Take 1 tablet by mouth once daily. buPROPion XL (WELLBUTRIN XL) 150 mg 24 hr tablet Take 1 tablet by mouth once daily. LORazepam (ATIVAN) 1 mg tablet Take 0.5 tablets by mouth twice daily for 90 days. warfarin (COUMADIN) 3 mg tablet 2.5 mg MW and 4.5 mg all other days or as directed (Patient taking differently: 4.5 mg Tues/Thurs and 2.5 mg all other days) warfarin (COUMADIN) 2.5 mg tablet 2.5 mg MWF and 4.5 mg all other days or as directed (Patient taking differently: 4.5 mg Tues/Thurs and 2.5 mg all other days) PARoxetine (PAXIL) 20 mg tablet Take 1 tablet by mouth once daily. pantoprazole DR (PROTONIX) 40 mg tablet Take 1 tablet by mouth twice daily. montelukast (SINGULAIR) 10 mg tablet Take 1 tablet by mouth daily at bedtime. potassium chloride ER (K-DUR, KLOR-CON) 20 mEq tablet Take 1 tablet by mouth once daily. albuterol (PROVENTIL) 2.5 mg /3 mL (0.083 %) nebulizer solution Use 3 mL via nebulizer every 6 hours as needed for wheezing/shortness of breath. DX: J45.40 Hx of moderate persistent Asthma warfarin (COUMADIN) 2.5 mg tablet 2.5 mg Mon/Sun, 4.5 mg all other days or as directed amiodarone (PACERONE) 200 mg tablet Take 100 mg by mouth once daily. albuterol HFA (PROAIR HFA) 90 mcg/actuation inhaler Inhale 2 Puffs as instructed every 4 hours as needed. budesonide-formoterol (SYMBICORT) 160-4.5 mcg/actuation inhaler Inhale 2 Puffs as instructed twice daily. acetaminophen (TYLENOL EXTRA STRENGTH) 500 mg tablet Take 1 tablet by mouth every 4 hours as neededfor Pain. RANGE FREQ? Nebulizer NEBULIZER FOR HOME USE and necessary supplies. DX: Hypoxemia, Pneumonia and Hemoptisis triamcinolone acetonide (NASACORT AQ) 55 mcg nasal inhaler Use 1 [place] in the nose once daily. pravastatin (PRAVACHOL) 80 mg tablet TAKE 1 TABLET BY MOUTH ONCE DAILY aspirin 81 mg chewable tablet Take 2 tablets by mouth once daily. metoprolol succinate XL, long acting, 50 mg 24 hr tablet Take 1 tablet by mouth once daily. ezetimibe(ZETIA 10 MG TAB) Take one(1) tablet daily. famotidine (PEPCID) 20 mg tablet Take 1 tablet by mouth daily at bedtime. (Patient not taking: Reported on 07/27/2022) Current Facility-Administered Medications Medication Dose Route Frequency bupivacaine 7.5 mg injection (SENSORCAINE) 3 mL OTHER As Directed ALLERGIES: ALLERGIES Allergen Reactions Adhesive Rash Blistering at site of application. Dextromethorphan Other: See Comments, Mental Status Change Risperidone Other: See Comments Sulfa (Sulfonamide * Other: See Comments Renal dysfunction. Childhood reaction. Generalized swelling Celebrex [Celecoxib] Other: See Comments Migraine headache. Aricept [Donepezil] Myalgia muscle pain and difficulty walking Compazine [Prochlor* Other: See Comments low BP Crestor [Rosuvastat* GI Upset Gabapentin Intolerance Confusion, when coupled with norco Lipitor [Atorvastat* Myalgia Lisinopril Cough No Latex Allergy [O* Oxycodone Itching Penicillins Other: See Comments Heart palpitations. No rash or itch. Can take cephalosporins Prozac [Fluoxetine * Other: See Comments hallucinating Ultram [Tramadol Hc* Itching Codeine Itching PAST MEDICAL HISTORY Diagnosis Date Adjustment disorder with depressed mood Aortic valve disorder Dr. Mckay Carotid stenosis Compression deformity of vertebra Congestive heart failure (HCC) COPD (chronic obstructive pulmonary disease) (HCC) 01/03/2013 Esophageal reflux Normal EGD 12/2012 H/O aortic valve replacement INR should be 2.5 to 3.5 High blood pressure Hyperlipidemia Impaired glucose tolerance Intrinsic asthma 06/[address] done per Dr. Mckay Migraine Myalgia and myositis, unspecified Other forms of migraine Parkinsonism (HCC) Thyroid nodule Unspecified essential hypertension PAST SURGICAL HISTORY Procedure Laterality Date ANTERIOR COLPORRAPHY RPR CYSTOCELE W/CYSTO 2001 w/ uterosacral suspension CARDIOVERSION [facility]- Spring 2019 CLOSURE SEMILUNAR VALVE AORTIC/PULM SUTURE/PATCH 2003 had aortic valve replacement w/ bovine valve COLONOSCOPY FLX DX W/COLLJ SPEC WHEN PFRMD 01/15/13 Colonoscopy COLSC FLX W/RMVL OF TUMOR POLYP LESION SNARE TQ 05/07/2017 Colonoscopy - cecal inflammatory polyps. Repeat in 5 yrs DISPLACEMENT THERAPY PROETZ TYPE x3 ESOPHAGOGASTRODUODENOSCOPY TRANSORAL DIAGNOSTIC 01/15/13 EGD ESOPHAGOGASTRODUODENOSCOPY TRANSORAL DIAGNOSTIC 05/07/2017 EGD FOOT RIGHT OP SURGERY 05/05/2009 HEMORRHOIDECTOMY XTRNL 2/> COLUMN/GROUP LAPS VAGINAL HYSTERECTOMY UTERUS 250 GM/< usvvs, enterocele repair,apr,lsc pvdr,cysto,spt LOW BACK DISK SURGERY 06/2011 OOPHORECTOMY PARTIAL/TOTAL UNI/BI PAST SURGICAL HISTORY OF 05/10 Thyroid [id number]-[id number] PAST SURGICAL HISTORY OF aug and september 2011 cataract removal PAST SURGICAL HISTORY OF 06/2012 4 sinus surgeries Thea Little PAST SURGICAL HISTORY OF 2013 aortic valve with On-X valve PERCUTANEOUS AORTIC VALVE REPLACEMENT 09/2013 POSTERIOR COLPORRHAPHY, REPAIR RECTOCELE 2001 SINUS SURGERY PROC UNLISTED 5 times TONSILLECTOMY PRIMARY/SECONDARY <AGE 12 TOTAL ABDOMINAL HYSTERECT W/WO RMVL TUBE OVARY age 31 FAMILY HISTORY Problem Relation Age of Onset Heart Mother Heart Father Diabetes Brother Hypertension Brother Lipids Brother Lipids Daughter other (Depression) Daughter GI Son Lipids Son Diabetes Sister Lipids Sister Social History Tobacco Use Smoking status: Never Smokeless tobacco: Never Tobacco comments: Father smoked in childhood home. Spouse non-smoker. Vaping Use Vaping Use: Never used Substance Use Topics Alcohol use: No Drug use: No Reviewed current medications, allergies, past medical history, surgical history, family history andsocial history today. REVIEW OF SYSTEMS All other reviewed and negative other than HPI. HEALTH MAINTENANCE: Reviewed health maintenance issues today and recommended the following in detail. There are no preventive care reminders to display for this patient. VITALS: BP 128/86 (BP Site: Left Arm, BP Position: Sitting) Pulse 70 Resp 20 Wt 59.1 kg (130 lb 6.4 oz) SpO2 94% BMI 25.47 kg/m Last 4 Encounter Wt Readings: Date: Wt: 07/27/2022 59.1 kg (130 lb 6.4 oz) 07/06/2022 59.4 kg (131 lb) 06/02/2022 61.7 kg (136 lb) 05/05/2022 62.1 kg (137 lb) PHYSICAL EXAMINATION: General appearance: Well appearing, alert, in no acute distress, well-hydrated, well nourished. Skin: Skin color, texture, turgor normal, no suspicious rashes or lesions Heent: has clot/and cerumen in right ear. No active bleeding. Head: Normocephalic, no masses, lesions, tenderness or abnormalities Lungs: Lungs clear to auscultation. No wheezing, rhonchi, rales Heart: RRR without murmur, gallop, or rubs. No ectopy Abdomen: Normal abdominal exam, Abdomen soft, non-tender. Bowel sounds normal. No masses, organomegaly Extremities: No deformities, edema, skin discoloration, clubbing or cyanosis. Good capillary refill. ASSESSMENT/PLAN: 1. Other osteoporosis without current pathological fracture - ICD9: 733.09, ICD10: M81.8 - Reviewed the need for Calcium and Vitamin D supplements and weight bearing exercise as tolerated Declines meds for now 2. Blood in ear. Check inr today. Discussed that I can try to irrigate the ear but cannot see what caused it. For now is stable. Sees ENT next week. They want to keep appt with them. Kolby Kim MD documented in this encounterWhite Hospital12-27-2022 History of Present illness Narrative* Sunny Estrella RN - 07/25/2022 4:35 PM EST [facility] Provider Action/FYI: H@H CHF/CKD/COPD Nerves are shot. [place] was difficult. Takes ativan which helps most days. Offered Behavorial Health-Talk therapy Would like to think more about it. Does crossword/puzzles to help as distractions/keep brain active PCP visit 07/06 Follows with brain health Good days/bad days Denies any falls Appears last log on my chart-07/19/22- Consider sending ROMELIA information-next call Contact made with patient: Yes Patient identified by name and . Discussed care with patient It s nice talking to you again. As a reminder, this is our bi-weekly check-in where I will be asking you questions about your health. This will only take a few minutes of your time. Is this a good time? Yes Symptoms What Chronic Disease(s) does the patient have: CHF, CKD, and COPD Do you check your blood pressures at home? No Do you have new or worse shortness of breath with activity? No Do you have new or worsening trouble breathing while lying flat? No Do you have new or worsening swelling of legs, feet or ankles? No Do you feel like you are dehydrated for any reason, including not being able to eat or drink normally, or having less urine/much darker urine than normal for you? No Do you check your daily weight at home? No and Do you have new or worsening cough? No Do you have new or worsening wheezing? No Do you need to use your rescue (Albuterol) inhaler or nebulizer more often than normal? No Are you having any other symptoms that your PCP needs to know about? No Symptoms: Symptom Escalation ROMELIA Education Ordered -: No The patient required an escalation for symptom(s)? No Medications Do you have any questions about taking your medication or which medications you should be on? No Do you need any medication refills at this time, including any of the medications you might take only when needed? No Social We would like to make sure you have what you need so that your basic needs are met- including your personal safety, food, housing and medications? Would you like to speak with a social work seam steamer to help give you support for any of these needs? No It can be normal to feel anxious or down during a time like this. Would you like to talk to a mental health professional about how you have been feeling? No Closing Thank you for taking the time to talk with me today. We want to work with you to ensure that we arekeeping your medical condition(s) well-controlled and to keep you healthy and out of the doctor's office or hospital. It s also not too late for me to sign you up for automated weekly questionnaires through [employer]. This is an easy way for us to stay connected each week. Are you interested? No, I understand. We can always sign you up in the future if you change your mind. Just as a reminder, will continue to call you every other week to check in on your health. Our calls should take 10-15 minutes or less. Remember, if you have concerns in between our calls, please call your PCP's office right away. Thank you. Enter next patient outreach date for two weeks on the same day of the week as today in the Track PtOutreach and End outreach. documented in this encounterWhite Hospital12-22-2022 History of Present illness Narrative* Kolby Kim MD - 07/20/2022 2:56 PM EST agree * Tia Mock RN - 07/20/2022 2:28 PM EST patient had inr completed at [facility] patients inr is 2.8 (patients inr range is 2.5-3.5) patient is currently taking 4.5mg Tues,Thurs,Sat and 2.5mg all other days patients last dose change was on 06/06/22 due to a low level of 2.2 (dose at that time was 4mg Tues,Sat and 2.5mg all other days) patient has had no changes in medication and no missed doses and no change in diet Advised patient to continue on the same dose(s) and that they would only be contacted regarding dosage and follow up instructions after review with provider, if a change is needed. Written instructions given and patient verbalized understanding. Presently scheduled in 2 weeks (08/03/22 - pt request) f or follow up INR. documented in this encounterWhite Hospital2022 Miscellaneous Notes* Telephone Encounter - Keily Mcpherson Ma - 07/11/2022 5:03 PM EST Patient was made aware of the results. Patient verbalizes understanding. Keily Mcpherson Ma * Telephone Encounter - Jas Harrell PA-C - 07/11/2022 4:41 PM EST Back xray shows previously noted compression fractures, no change. Labs are WNL or stable from previous. Renal function gasper improved. Thanks, Michael Harrell PA-C * Telephone Encounter - Keily Mcpherson Ma - 07/11/2022 3:17 PM EST Please review x-ray and lab results. documented in this encounterWhite Hospital12-12-2022 Miscellaneous Notes* Telephone Encounter - Ember Keating LPN - 07/10/2022 3:33 PM EST Order Faxed to [facility]. Ember Keating LPN * Telephone Encounter - Millie Olmedo APRN.CNP - 07/10/2022 3:00 PM EST Order placed. Please fax, as requested. Millie Olmedo APRN.PERLA * Telephone Encounter - Alycia Gill RN - 07/10/2022 2:08 PM EST Patient calling with request for order for annual screening mammogram w/CHETNA. Please fax to [facility]. Pended. Alycia Gill RN documented in this encounterWhite Hospital12-08-2022 History of Present illness Narrative* Kolby Kim MD - 07/06/2022 12:17 PM EST agree * Tia Mock RN - 07/06/2022 11:34 AM EST patient had inr completed at [facility] patients inr is 3.0 (patients inr range is 2.5-3.5) patient is currently taking 4.5mg Tues,Thurs,Sat and 2.5mg all other days patients last dose change was on 06/06/22 due to a low level of 2.2 (dose at that time was 4.5mg Tues,Sat and 2.5mg all other days) patient has had no changes in medication and no missed doses and no change in diet Advised patient to continue on the same dose(s) and that they would only be contacted regarding dosage and follow up instructions after review with provider, if a change is needed. Written instructions given and patient verbalized understanding. Presently scheduled in 2 weeks (07/20/22) for follow u p INR. documented in this encounterWhite Hospital12-01-2022 History of Present illness Narrative* Maribel Diaz LPN - 06/29/2022 2:02 PM EST Patient presents for COVID vaccine. Denies any problems at this time. Tolerated injection well. Maribel Diaz LPN documented in this encounterWhite Hospital11-14-2022 History of Present illness Narrative* Sunny Estrella RN - 06/12/2022 12:16 PM EST [facility]LE[facility]RE[facility] Provider Action/FYI: CHF/CKD/COPD Doing better had a cough and come increasing SOB last few days that has improved. Using inhalers as directed. Needing breathing treatments las few days but better now. Does reports some edema around her ankles, attributes this to being on her feet. Advised to elevate. Does not weigh daily used to. Discussed importance of weighing self daily with patient. Follows with Brain health, neurology for Lewi body dementia. Seen 06/02. Activity encouraged. Continue with rivastigmine patch. Asked about mammogram when recently in Radiology outside [facility]. Patient has appointment with PCP 07/06. Will address at that visit. Contact made with patient: Yes Patient identified by name and . Discussed care with patient It s nice talking to you again. As a reminder, this is our bi-weekly check-in where I will be asking you questions about your health. This will only take a few minutes of your time. Is this a good time? Yes Symptoms What Chronic Disease(s) does the patient have: CHF, CKD, and COPD Do you check your blood pressures at home? No Do you have new or worse shortness of breath with activity? No Do you have new or worsening trouble breathing while lying flat? No Do you have new or worsening swelling of legs, feet or ankles? Yes Do you feel like you are dehydrated for any reason, including not being able to eat or drink normally, or having less urine/much darker urine than normal for you? No Do you check your daily weight at home? No and Do you have new or worsening cough? No Do you have new or worsening wheezing? No Do you need to use your rescue (Albuterol) inhaler or nebulizer more often than normal? No Are you having any other symptoms that your PCP needs to know about? No Symptom Escalation The patient required an escalation for symptom(s)? No Medications Do you have any questions about taking your medication or which medications you should be on? No Do you need any medication refills at this time, including any of the medications you might take only when needed? No Social We would like to make sure you have what you need so that your basic needs are met- including your personal safety, food, housing and medications? Would you like to speak with a social work seam steamer to help give you support for any of these needs? No It can be normal to feel anxious or down during a time like this. Would you like to talk to a mental health professional about how you have been feeling? No Closing Thank you for taking the time to talk with me today. We want to work with you to ensure that we arekeeping your medical condition(s) well-controlled and to keep you healthy and out of the doctor's office or hospital. It s also not too late for me to sign you up for automated weekly questionnaires through [employer]. This is an easy way for us to stay connected each week. Are you interested? No, I understand. We can always sign you up in the future if you change your mind. Just as a reminder, will continue to call you every other week to check in on your health. Our calls should take 10-15 minutes or less. Remember, if you have concerns in between our calls, please call your PCP's office right away. Thank you. Enter next patient outreach date for two weeks on the same day of the week as today in the Track PtOutreach and End outreach. documented in this encounterWhite Hospital11-10-2022 History of Present illness Narrative* Sunny Estrella RN - 06/08/2022 1:58 PM EST INSIGHT CDM TELEPHONIC OUTREACH Provider Action/FYI: CHF/CKD Contact made with patient: No - Left message Hello my name is Sunny Estrella RN your Industrial Technology Education Teacher from the [facility] I am calling today for your bi-weekly check in. I am sorry I missed your call. I will reach out to you again tomorrow. (if the third call I will reach out to you again next week) Enter next patient outreach date forth using the Track Pt Outreach. End outreach. documented in this encounterWhite Hospital11-09-2022 Miscellaneous Notes* Telephone Encounter - Monique Rose RN - 06/07/2022 8:51 AM EST Patient has been identified by name and date of : Yes Patient phones for refill(s): Requested Prescriptions Pending Prescriptions Disp Refills ferrous sulfate 325 mg (65 mg iron) tablet 60 tablet 2 Sig: Take 1 tablet by mouth twice daily with meals. ergocalciferol 50,000 unit capsule (VITAMIN D2, DRISDOL) 12 capsule 3 Sig: Take 1 capsule by mouth one time a week. furosemide (LASIX) 40 mg tablet 90 tablet 1 Sig: Take 1 tablet by mouth once daily. Date of last office visit in primary care: 03/21/22 Last 2 Encounter Wt Readings: Date: Wt: 06/02/2022 61.7 kg (136 lb) 05/05/2022 62.1 kg (137 lb) Previous labs/tests for medication: Diabetes: Hemoglobin A1C (%) Date Value 09/01/2021 5.5 03/04/2021 5.1 Cholesterol: HDL Cholesterol (mg/dL) Date Value 12/03/2020 55 LDL Cholesterol (mg/dL) Date Value 12/03/2020 83 ALT (U/L) Date Value 09/18/2021 15 09/01/2021 21 Non HDL Cholesterol (mg/dL) Date Value 12/03/2020 108 Blood Pressure: BUN (mg/dL) Date Value 12/07/2021 15 09/01/2021 20 Sodium (mmol/L) Date Value 12/07/2021 141 09/01/2021 140 Last 1 Encounter BP Readings: Date: BP: 06/02/2022 135/72 Blood Counts: WBC (k/uL) Date Value 12/07/2021 8.82 09/01/2021 7.03 RBC (m/uL) Date Value 12/07/2021 4.99 09/01/2021 5.20 Hematocrit (%) Date Value 12/07/2021 45.8 09/01/2021 48.2 Hemoglobin (g/dL) Date Value 12/07/2021 13.8 09/01/2021 14.4 Platelet Count (k/uL) Date Value 12/07/2021 333 09/01/2021 278 Liver Function: ALT (U/L) Date Value 09/18/2021 15 09/01/2021 21 AST (U/L) Date Value 09/18/2021 18 09/01/2021 27 Potassium: No components found for: POT Please advise. Thank you. Monique Rose, RN documented in this encounterWhite Hospital11-03-2022 History of Present illness Narrative* Tia Mock RN - 06/01/2022 4:06 PM EDT spouse notified of information * Kolby Kim MD - 06/01/2022 2:08 PM EDT Hold x 1 day, then 4.5 on Tues and Sat. 2.5 a day rest of the week. Recheck one week. * Tia Mock RN - 06/01/2022 1:06 PM EDT patient had inr completed at [facility] patients inr is 4.1 (patients inr range is 2.5-3.5) patient is currently taking 4.5mg Tues,Thurs,Sat and 2.5mg all other days) patients last dose change was on 05/02/22 due to a high level of 4.0 (dose at that time was 2.5mg Mon,Wed,Fri and 4.5mg all other days) patient has had a change in medication as she just finished antibiotics and prednisone yesterday and no change in diet Advised patient that they would be contacted regarding medication dose and when to follow up after information is reviewed by provider. After provider review please contact the patient with information and schedule follow up appointment with coumadin clinic. ok to leave a detailed message if no answer FYI- patient has been scheduled for a 5 day follow up inr on 06/06/22 documented in this encounterWhite Hospital11-01-2022 Miscellaneous Notes* Telephone Encounter - Talia Santoro - 05/30/2022 9:14 AM EDT Pharmacy verified in Epic Patient has been identified by name and date of : Yes Patient aware RX will be sent to pharmacy. No need to notify patient. Patient phones for refill(s): Requested Prescriptions Pending Prescriptions Disp Refills buPROPion XL (WELLBUTRIN XL) 150 mg 24 hr tablet 90 tablet 3 Sig: Take 1 tablet by mouth once daily. Date of last office visit : 03/21/2022 Date of next office visit : 07/06/2022 Last 2 Encounter Wt Readings: Date: Wt: 05/05/2022 62.1 kg (137 lb) 04/19/2022 62.7 kg (138 lb 3.2 oz) Please advise. Talia Cat Pss documented in this encounterWhite Hospital10-31-2022 Miscellaneous Notes* Telephone Encounter - Livia Clayton MA - 05/29/2022 11:35 AM EDT Patient has been identified by name and date of : Yes Requested Prescriptions Pending Prescriptions Disp Refills LORazepam (ATIVAN) 1 mg tablet 90 tablet 0 Sig: Take 0.5 tablets by mouth twice daily for 90 days. RX INSTRUCTIONS: Patient aware RX will be sent to pharmacy. No need to notify patient. Livia Clayton MA Delvin: 02/2022 Nov: 06/2022 Last refill: 02/2022 * Telephone Encounter - Crystal Baker - 05/29/2022 11:33 AM EDT Patient has been identified by name and date of : Yes Requested Prescriptions Pending Prescriptions Disp Refills LORazepam (ATIVAN) 1 mg tablet 90 tablet 0 Sig: Take 0.5 tablets by mouth twice daily for 90 days. RX INSTRUCTIONS: Patient aware RX will be sent to pharmacy. No need to notify patient. Crystal Baker documented in this encounterWhite Hospital10-27-2022 History of Present illness Narrative* Kenneth Ng MD - 05/25/2022 3:33 PM EDT No changes in coumadin dosing needed. Agree with next INR check. * Tia Mock RN - 05/25/2022 1:47 PM EDT patient had inr completed at [facility] patients inr is 2.7 (patients inr range is 2.5-3.5) patient is currently taking 4.5mg Tues,Thurs,Sat and 2.5mg all other days patients last dose change was on 05/02/22 due to a high level of 4.0 (dose at that time was 2.5mg Mon,Wed,Fri and 4.5mg all other days) patient has had a change in medication as patient was started on doxy and prednisone yesterday and no missed doses and no change in diet Advised patient to continue on the same dose(s) and that they would only be contacted regarding dosage and follow up instructions after review with provider, if a change is needed. Written instructions given and patient verbalized understanding. Presently scheduled in 1 weeks (06/01/22) for follow up INR since patient is on antibiotics and steroid treatment documented in this encounterWhite Hospital10-27-2022 History of Present illness Narrative* Ivis Carrington RN - 05/25/2022 2:28 PM EDT INSIGHT CDM TELEPHONIC OUTREACH Provider Action/FYI: Patient reports she is feeling better today, went to [facility] ER yesterday, tested negative for Coivd and flu. Patient was prescribed Prednisone and Doxycycline. Patient has no questions, concerns, needs at this time. Contact made with patient: Yes Patient identified by name and . Discussed care with patient It s nice talking to you again. As a reminder, this is our bi-weekly check-in where I will be asking you questions about your health. This will only take a few minutes of your time. Is this a good time? Yes Symptoms What Chronic Disease(s) does the patient have: CHF and CKD Do you check your blood pressures at home? No Do you have new or worse shortness of breath with activity? No Do you have new or worsening trouble breathing while lying flat? No Do you have new or worsening swelling of legs, feet or ankles? No Do you feel like you are dehydrated for any reason, including not being able to eat or drink normally, or having less urine/much darker urine than normal for you? No Do you check your daily weight at home? No Are you having any other symptoms that your PCP needs to know about? No Symptom Escalation The patient required an escalation for symptom(s)? No Medications Do you have any questions about taking your medication or which medications you should be on? No Do you need any medication refills at this time, including any of the medications you might take only when needed? No Social We would like to make sure you have what you need so that your basic needs are met- including your personal safety, food, housing and medications? Would you like to speak with a social work seam steamer to help give you support for any of these needs? No It can be normal to feel anxious or down during a time like this. Would you like to talk to a mental health professional about how you have been feeling? No Closing Thank you for taking the time to talk with me today. We want to work with you to ensure that we arekeeping your medical condition(s) well-controlled and to keep you healthy and out of the doctor's office or hospital. It s also not too late for me to sign you up for automated weekly questionnaires through [employer]. This is an easy way for us to stay connected each week. Are you interested? No, I understand. We can always sign you up in the future if you change your mind. Just as a reminder, will continue to call you every other week to check in on your health. Our calls should take 10-15 minutes or less. Remember, if you have concerns in between our calls, please call your PCP's office right away. Thank you. Enter next patient outreach date for two weeks on the same day of the week as today in the Track PtOutreach and End outreach. documented in this encounterCleveland [id number] Miscellaneous Notes* Telephone Encounter - ZAKI Seymour - 05/17/2022 12:25 PM EDT Patient reports that she completed Living Will through and forms were returned and she was told that they were not complete. Patient reports that she does not know what was wrong with forms and does not know where the forms with note are right now. Sw notes that she can mail patient new Living Will with Advance Directive Brochure that explains more about the completing forms. Patient reports that she would like forms sent to her to work on completing. Forms have been mailed to patient home. * Telephone Encounter - ZAKI Seymour - 05/15/2022 5:01 PM EDT Sameer left message for patient to return Sw call to discuss Advance Directive- Living Will questions. * Telephone Encounter - ZAKI Seymour - 05/12/2022 11:44 AM EDT Sw sent patient MyChart message as she has questions about Living Will. Sw also tried call to patient. Call would not go through. Sw will see if patient answers MyChart message. If patient does not answer MyChart message beginning of next week, will try call again. documented in this encounterWhite Hospital10-13-2022 History of Present illness Narrative* Kolby Kim MD - 05/11/2022 12:16 PM EDT agree * Tia Mock RN - 05/11/2022 12:13 PM EDT patient had inr completed at [facility] patients inr is 2.9 (patients inr range is 2.5-3.5) patient is currently taking 4.5mg Tues,Thurs,Sat and 2.5mg all other days patients last dose change was on 05/02/22 due to a high level of 4.0 (dose at that time was 2.5mg Mon,Wed,Fri and 4.5 mg all other days) patient has had no changes in medication except for coumadin and no uninstructed missed doses and no change in diet Advised patient to continue on the same dose(s) and that they would only be contacted regarding dosage and follow up instructions after review with provider, if a change is needed. Written instructions given and patient verbalized understanding. Presently scheduled in 2 weeks (05/25/22) for follow u p INR since this is the first normal reading since dose change documented in this encounterWhite Hospital10-12-2022 History of Present illness Narrative* Ivis Carrington RN - 05/10/2022 10:39 AM EDT INSIGHT CDM TELEPHONIC OUTREACH Provider Action/FYI: Contact made with patient: Yes Patient identified by name and . Discussed care with spouse It s nice talking to you again. As a reminder, this is our bi-weekly check-in where I will be asking you questions about your health. This will only take a few minutes of your time. Is this a good time? No - today is not a good time for the patient. Agree on a call back time and connect with the patient then. If applicable, update the next patient outreach date using the Track Pt Outreach. End outreach documented in this encounterWhite Hospital10-07-2022 Instructions* Patient Instructions* Siva Munoz MD - 05/05/2022 12:23 PM EDT 1) Referral provided to a Parkinson's disease specialist to check your mobility 2) You will be prescribed a rivastigmine patch to help with the memory, discuss with your knitter helper next week before starting the medication. Monitor your heart rate once you start the medication 3) Consider slowly discontinuing the lorazepam and looking for an alternative to reduce your risk of falls and confusion, discuss this with your primary care doctor documented in this encounterWhite Hospital10-07-2022 History of Present illness Narrative* Radha Sanchez MD - 05/05/2022 10:00 AM EDT Images from the original note were not included. [facility] Date: May 05, 2022 Patient Name: Elza Chu [facility] was asked by Dr. Kim to evaluate Elza Chu. Our recommendations of care will be communicated by shared medical record. Reason for Evaluation/Chief complaint: DLB Accompanied by: , Trent SUBJECTIVE: HPI: Ms. Elza Chu is a 76 year old right handed handed female who presents to the [facility] for an initial evaluation. Patient has been seen and referred by Dr. Kolby Kim. Patient has a pertinent PMHx significant for DLB dementia, depression, CHF, COPD, esophgeal reflux, h/o AV replacement on warfarin, HTN, HLD, migraine, myalgia, thyroid nodule, lung nodule, s/p partial lung resection, anxiety. Background history: Previously evaluated by neurology, Dr. Epstein, and diagnosed with Lewy body dementia in 2019. Was on a trial of donepezil with intolerance due to cholinergic side effects with oral formulation. Today's visit: Patient presenting with concerns of memory decline, hallucinations, and delusions that has been ongoing for the past 1-2 years. She states that she has been having a gradual decline in memory for the past 18 months, misplacing items around the house, repeating statements and questions (per ), getting more confused in the evening. Some days with more confusion than other, typically occurs in the evening. Forgetful that she was playing scrabel with her the other day. Her visual hallucinations started 2 years ago, initially visualizing the picture of a girl on the wall combing her hair. She reports that she has a hard time deciphering the difference between reality and illusions. Reports two incidents of hallucinating her father who has many years ago. Auditory hallucinations of hearing sounds in the attic and visual hallucination of a lovely in the attic. May have hallucinated her in the attic as well. Reports having eye exams recently. Mechanical fall, falling backwards and hitting of head in 08/2021, underwent imaging w/ CT head and C-spine that was negative for acute process. Reports bilateral tremors at rest, exacerbated with nervousness. Patient does report of occasional nightmares but denies acting out her dreams or falling out of bed. While sleeping, the has noticed that the patient may be moving her hand to reach. Recently started driving again, left leg was weakened but improved with physical therapy and she states that it has allowed her to drive again. Short-term Memory: Repeats questions/statements: YES Misplacing items around the house: YES Difficulty remembering details of recent conversations within a few hours: NO Difficulty remembering names of familiar people (not family or friends): NO Missed some appointments or major events due to memory changes: NO Long-term Memory: Difficulty remembering distant events from the past like childhood, previous employment, wedding: NO Language: Word-finding difficulty: YES Fluency: YES - slurred speech at times Difficulty understanding conversations: NO Difficulty with reading or writing: YES - difficulty Difficulty with reading comprehension: NO Executive functions: Judgement: no Difficulty with using household appliances: no Orientation/Driving Do you drive?: YES Can find way on familiar streets: YES Can get from one place to another outside of neighborhood: NO Have you reduced your driving to avoid risks?: YES Have you gotten lost while driving?: NO Any accidents or moving violations?: NO Fluctuations in alertness/attention: yes Mood: wishy-washy some days down Status of Health: Neurobehavioral symptoms: Delusions: smelling things coming from the vents. Hallucinations: visual and auditory. Paranoia: hearing noises, people stealing things (things from the fridge) Sleep: No problem falling asleep, difficulty maintaining sleep (waking up 4 times to check on her dog) Functional Evaluation: B-ADLs: (I=independent,A=assistance,D=dependent) ?Bathing: I , Dressing: I , Toileting: I , Transferring: I , Continence: I , Feeding: I , I-ADLs: Transportation: A, Medications: A ( prepares a list that she ), Handle Finances: helps, Cooking: I Has INSIGHTS STRATEGIST coming in once a month helping with cleaning, pt independent laundry REVIEW OF SYSTEMS: Weight change/Appetite: weight loss of ~30 lbs, appetite good Hearing: hearing difficulty, unsure when last hearing test was Vision: right eye blurriness, bifocal glasses Change in memory problems : yes Constipation, Diarrhea: none Incontinence: denies Chest pain, PND, orthopnea: denies Edema: denies Dyspnea: exertional dyspnea - Presence of pain and effect on function? Yes (pain in knees, wrist, and shoulders) Falls/injuries/accidents: yes ED/Hospitalizations: One instasnce NEURO: SEE HPI OUTPATIENT MEDICATIONS Current Outpatient Medications on File Prior to Visit Medication Sig warfarin (COUMADIN) 3 mg tablet 2.5 mg MW and 4.5 mg all other days or as directed valACYclovir (VALTREX) 500 mg tablet Take 500 mg by mouth. warfarin (COUMADIN) 2.5 mg tablet 2.5 mg MWF and 4.5 mg all other days or as directed ferrous sulfate 325 mg (65 mg iron) tablet Take 1 tablet by mouth twice daily with meals. LORazepam (ATIVAN) 1 mg tablet Take 0.5 tablets by mouth twice daily for 90 days. PARoxetine (PAXIL) 20 mg tablet Take 1 tablet by mouth once daily. ergocalciferol 50,000 unit capsule (VITAMIN D2, DRISDOL) Take 1 capsule by mouth one time a week. pantoprazole DR (PROTONIX) 40 mg tablet Take 1 tablet by mouth twice daily. furosemide (LASIX) 40 mg tablet Take 1 tablet by mouth once daily. montelukast (SINGULAIR) 10 mg tablet Take 1 tablet by mouth daily at bedtime. potassium chloride ER (K-DUR, KLOR-CON) 20 mEq tablet Take 1 tablet by mouth once daily. lidocaine viscous (LIDOCAINE VISCOUS) 2 % solution Take 15 mL by mouth every 3 hours as needed for pain. (Patient not taking: Reported on 04/19/2022) albuterol (PROVENTIL) 2.5 mg /3 mL (0.083 %) nebulizer solution Use 3 mL via nebulizer every 6 hours as needed for wheezing/shortness of breath. DX: J45.40 Hx of moderate persistent Asthma buPROPion XL (WELLBUTRIN XL) 150 mg 24 hr tablet Take 1 tablet by mouth once daily. amoxicillin-clavulanic acid (AUGMENTIN) 875-125 mg per tablet Take 1 tablet by mouth twice daily. (Patient not taking: Reported on 12/07/2021 ) warfarin (COUMADIN) 2.5 mg tablet 2.5 mg Sun/Sun, 4.5 mg all other days or as directed famotidine (PEPCID) 20 mg tablet Take 1 tablet by mouth at bedtime as needed. amiodarone (PACERONE) 200 mg tablet Take 100 mg by mouth once daily. albuterol HFA (PROAIR HFA) 90 mcg/actuation inhaler Inhale 2 Puffs as instructed every 4 hours as needed. budesonide-formoterol (SYMBICORT) 160-4.5 mcg/actuation inhaler Inhale 2 Puffs as instructed twice daily. acetaminophen (TYLENOL EXTRA STRENGTH) 500 mg tablet Take 1 tablet by mouth every 4 hours as neededfor Pain. RANGE FREQ? Nebulizer NEBULIZER FOR HOME USE and necessary supplies. DX: Hypoxemia, Pneumonia and Hemoptisis triamcinolone acetonide (NASACORT AQ) 55 mcg nasal inhaler Use 1 [place] in the nose once daily. pravastatin (PRAVACHOL) 80 mg tablet TAKE 1 TABLET BY MOUTH ONCE DAILY aspirin 81 mg chewable tablet Take 2 tablets by mouth once daily. metoprolol succinate XL, long acting, 50 mg 24 hr tablet Take 1 tablet by mouth once daily. ezetimibe(ZETIA 10 MG TAB) Take one(1) tablet daily. Current Facility-Administered Medications on File Prior to Visit Medication bupivacaine 7.5 mg injection (SENSORCAINE) MEDICAL HISTORY PAST MEDICAL HISTORY Diagnosis Date Adjustment disorder with depressed mood Aortic valve disorder Dr. Mckay Carotid stenosis Compression deformity of vertebra Congestive heart failure (HCC) COPD (chronic obstructive pulmonary disease) (HCC) 01/03/2013 Esophageal reflux Normal EGD 12/2012 H/O aortic valve replacement INR should be 2.5 to 3.5 High blood pressure Hyperlipidemia Impaired glucose tolerance Intrinsic asthma 06/[address] done per Dr. Mckay Migraine Myalgia and myositis, unspecified Other forms of migraine Thyroid nodule Unspecified essential hypertension SURGICAL HISTORY PAST SURGICAL HISTORY Procedure Laterality Date ANTERIOR COLPORRAPHY RPR CYSTOCELE W/CYSTO 2001 w/ uterosacral suspension CARDIOVERSION [facility]- Spring 2019 CLOSURE SEMILUNAR VALVE AORTIC/PULM SUTURE/PATCH 2003 had aortic valve replacement w/ bovine valve COLONOSCOPY FLX DX W/COLLJ SPEC WHEN PFRMD 01/15/13 Colonoscopy COLSC FLX W/RMVL OF TUMOR POLYP LESION SNARE TQ 05/07/2017 Colonoscopy - cecal inflammatory polyps. Repeat in 5 yrs DISPLACEMENT THERAPY PROETZ TYPE x3 ESOPHAGOGASTRODUODENOSCOPY TRANSORAL DIAGNOSTIC 01/15/13 EGD ESOPHAGOGASTRODUODENOSCOPY TRANSORAL DIAGNOSTIC 05/07/2017 EGD FOOT RIGHT OP SURGERY 05/05/2009 HEMORRHOIDECTOMY XTRNL 2/> COLUMN/GROUP LAPS VAGINAL HYSTERECTOMY UTERUS 250 GM/< usvvs, enterocele repair,apr,lsc pvdr,cysto,spt LOW BACK DISK SURGERY 06/2011 OOPHORECTOMY PARTIAL/TOTAL UNI/BI PAST SURGICAL HISTORY OF 05/10 Thyroid [id number] PAST SURGICAL HISTORY OF aug and september 2011 cataract removal PAST SURGICAL HISTORY OF 06/2012 4 sinus surgeries Thea Little PAST SURGICAL HISTORY OF 2013 aortic valve with On-X valve PERCUTANEOUS AORTIC VALVE REPLACEMENT 09/2013 POSTERIOR COLPORRHAPHY, REPAIR RECTOCELE 2001 SINUS SURGERY PROC UNLISTED 5 times TONSILLECTOMY PRIMARY/SECONDARY <AGE 11 TOTAL ABDOMINAL HYSTERECT W/WO RMVL TUBE OVARY age 31 SOCIAL HISTORY Social History Tobacco Use Smoking status: Never Smokeless tobacco: Never Tobacco comments: Father smoked in childhood home. Spouse non-smoker. 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 Dextromethorphan Other: See Comments, Mental Status Change Sulfa (Sulfonamide * Other: See Comments Renal dysfunction. Childhood reaction. Generalized swelling Celebrex [Celecoxib] Other: See Comments Migraine headache. Aricept [Donepezil] Myalgia muscle pain and difficulty walking Compazine [Prochlor* Other: See Comments low BP Crestor [Rosuvastat* GI Upset Gabapentin Intolerance Confusion, when coupled with norco Lipitor [Atorvastat* Myalgia Lisinopril Cough No Latex Allergy [O* Oxycodone Itching Penicillins Other: See Comments Heart palpitations. No rash or itch. Can take cephalosporins Prozac [Fluoxetine * Other: See Comments hallucinating Ultram [Tramadol Hc* Itching Codeine Itching OBJECTIVE: PHYSICAL EXAM: Vitals: BP 177/67 Pulse 62 Wt 62.1 kg (137 lb) BMI 26.55 kg/m General appearance: Sitting upright. Appears stated age. No acute distress. Non- toxic appearing. Nohypomimia. Lungs: Clear to auscultation bilaterally Heart: RRR Neuro: Mental Status: Alert, oriented to person, place, and time. Follows commands. Answering questions appropriately. No dysarthria or hypophonia. Caldwell Cognitive Assessment (MoCA) Version 1 Total Score: 16/30 MoCA Past Scores MoCA 05/05/2022 MOCA TOTAL SCORE 16 out of 30 Visuospatial/ Executive 2 Naming 2 Attention 2 Language 0 Abstraction 1 Delayed Recall 3 Orientation 5 Education Level 1 Cranial Nerves: EOMI CN VII: Face symmetric, no ptosis or facial droop CN VIII: Auditory acuity intact CN IX/CN X: Normal palate elevation CN XI: Normal shoulder shrug CN XII: Normal tongue strength and range of motion; no deviation, atrophy or fasciculations Motor Exam: Mild cog-wheeling. Tremors involving the right hand. Bradykinesia with finger tapping right hand. No abnormal movements, jerks. Power 5/5 in UE's bilaterally. LE's 4/5 on RLE and 5/5 on LLE. Sensory: Intact to light touch in all extremities. Pinprick, vibration, and proprioception not assessed. Romberg intact without sway. Reflexes: Palmomental: Negative Coordination: FNF with no ataxia or dysmetria. Gait: Arises independently; kyphosis; gait stable with short stride length, slow rate, and poor armswing. LABS/DATA: Hemoglobin A1C Date Value Ref Range Status 09/01/2021 5.5 4.3 - 5.6 % Final Comment: [place] [employer] guidelines indicate that patients with HgbA1c in the range 5.7-6.4% are at increased risk for development of diabetes, and intervention by lifestyle modification may be beneficial. HgbA1c greater or equal to 6.5% is considered diagnostic of diabetes. TSH Date Value Ref Range Status 03/04/2021 3.160 0.270 - 4.200 uU/mL Final Vitamin B12 Date Value Ref Range Status 02/27/2020 363 232 - 1,245 pg/mL Final Folate Date Value Ref Range Status 03/16/2020 18.0 >4.7 ng/mL Final IMAGING REVIEW: CT brain on 08/2021 demonstrating no acute findings. Findings of chronic microvascular changes and mild generalized volume loss. INTERNAL RECORDS: The patient's electronic medical record was reviewed. The relevant details are summarized as above. ASSESSMENT: # Lewy Body Dementia # Parkinsonism - Episodic visual hallucinations and some auditory hallucination, fluctuating cognition levels varying on different days, and reportedly reaching out with hand during sleep - Physical exam c/w mild rigidity, difficulty with slow alternating movements in the right hand on finger tapping, slow gait with decreased arm swing - MOCA score of 16/30 and significant functional impairment in iADL PLAN: # Trial of Rivastigmine transdermal patch 4.6 mg daily once patient discusses any potential contraindications with her cardiac meds at her upcoming knitter helper appt # Consult to movement disorders specialist for parkinsonism # Advised tapering off the lorazepam at the discretion of her prescribing provider due to side effects of cognitive impairment and increased risk of falls #. General brain health measures discussed, including the importance of regular aerobic exercise. #. Safety measures reviewed. Advised patient to minimize driving. Driving evaluation may be considered at next follow up. #. Follow up in 2 months or sooner if needed Siva Munoz MD [facility] 05/05/2022 8:56 AM I have seen and evaluated the patient and discussed the case with the Geriatric Medicine Fellow. I agree with the assessment and plan as documented in the note. Recurrent complex visual hallucinations with progressive cognitive decline. Fluctuations in alertness and attentiveness. Possible dream enactment behavior. No PSG available. Exam showed slow alternating movements and poor gait with abnormal arm swing. No entirely convincing for parkinsonism but will refer to movement specialist for opinion. Reports that she is unable to obtain MRI due to heart valve. Hallucinations are not bothersome. Agreeable to trial of cholinesterase inhibitors but borderline bradycardia and on metoprolol. ? Right hand apraxia. I spent a total of 60 minutes on the date of the service which included preparing to see the patient, [id number] patient care, completing clinical documentation, obtaining and/or reviewing separately obtained history, performing a medically appropriate examination, counseling and educating the pat ient/family/caregiver, ordering medications, tests, or procedures, communicating with other HCPs (not separately reported), independently interpreting results (not separately reported), communicatingresults to the patient/family/caregiver, and care coordination (not separately reported). Radha Sanchez M.D [facility] CC: Referring Physician: [place] [id number] PCP: Kolby Nogueira [place] [address] Patient Entered Data: Patient-Reported 05/04/2022 Where are you currently living? Home / Private residence Are you using any community resources to help care for yourself? No Has your caregiver accompanied you today? Yes Did you receive help completing this questionnaire? Yes If you received help, could you have completed this questionnaire on your own? Yes Activities of Daily Living (ADL) No flowsheet data found. PROMIS-10 PROMIS 10 05/04/2022 09/14/2021 In general, would you say your health is: Fair Fair In general, would you say your quality of life is: Good Fair In general, how would you rate your physical health? Poor Fair In general, how would you rate your mental health, including your mood and your ability to think? Fair Fair In general, how would you rate your satisfaction with your social activities and relationships? Fair Fair To what extent are you able to carry out your everyday physical activities such as walking, climbing stairs, carrying groceries, or moving a chair? Moderately A little In general, please rate how well you carry out your usual social activities and roles. (This includes activities at home, at work and in your community, and responsibilities as a parent, child, spouse, employee, friend, etc.) Good Fair How would you rate your pain on average? 6 5 How would you rate your fatigue on average? Moderate Moderate How often have you been bothered by emotional problems such as feeling anxious, depressed or irritable? Always Always PROMIS Adult Short Form-Global Health Score (Physical) 34.9 (Poor) 34.9 (Poor) PROMIS Adult Short Form-Global Health Score (Mental) 33.8 (Fair) 31.3 (Fair) PHQ-9 PHQ-9 All Questions 05/04/2022 09/16/2021 Little interest or pleasure in doing things 1 2 Feeling down, depressed, or hopeless 3 1 Trouble falling or staying asleep, or sleeping too much 1 0 Feeling tired or having little energy 3 1 Poor appetite or overeating 1 0 Feeling bad about yourself - or that you are a failure or have let yourself or your family down 3 2 Trouble concentrating on things, such as reading the newspaper or watching television 1 2 Moving or speaking so slowly that other people could have noticed. Or the opposite - being so fidgety or restless that you have been moving around a lot more than usual 3 1 Thoughts that you would be better off , or of hurting yourself in some way 0 1 PHQ-9 Score 16 10 (0-4) minimal depression (5-9) mild depression (10-14) moderate depression (15-19) moderately severe depression (20-27) severe depression Full History of PHQ-9 Scores PHQ-9 Score 05/04/2022 16 09/16/2021 10 05/03/2021 4 03/03/2021 7 09/01/2020 6 04/11/2020 9 03/04/2020 10 10/14/2019 6 08/22/2019 8 Sleep 05/04/2022 What is your average total sleep time per night over the past 4 weeks? 6 Hours What is your average total sleep time during the day over the past 4 weeks? 1 Hours Have you been diagnosed with sleep apnea? No Insomnia Severity Index 05/04/2022 Difficulty falling asleep 0 Difficulty staying asleep 2 Problem waking up too early 1 Satisfied/dissatisfied with current sleep pattern 2 Sleep interferes with daily functions 0 Sleep problems noticeable to others 2 Worried/distressed about current sleep problems 2 Score 9 Caregiver-Reported 05/04/2022 Are you the person who cares for the patient the majority of the time? (Primary Caregiver) Yes How are you related to the patient? Spouse Do you currently reside with the patient? Yes Are you currently employed outside the home? No What is your gender? Male Please enter your age 68 Dementia Severity Rating Scale (DSRS) No flowsheet data found. documented in this encounterWhite Hospital10-07-2022 Nurse Note* Kaelyn Urias LPN - 05/05/2022 9:55 AM EDT Elza Chu is a 76 year old year old right handed woman Accompanied by: spouse. 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 What would you like to accomplish with this visit today? referral Vital Signs: BP 176/74 Pulse 60 Wt 62.1 kg (137 lb) BMI 26.55 kg/m documented in this encounterWhite Hospital10-04-2022 History of Present illness Narrative* Tia Mock RN - 05/02/2022 4:42 PM EDT PATIENT NOTIFIED OF INFORMATION * Kolby Kim MD - 05/02/2022 2:28 PM EDT Hold x 1 day, then 2.5 MWFSun. 4.5 other days. Recheck one week * Tia Mock RN - 05/02/2022 1:28 PM EDT patient had inr completed at [facility] patients inr is 4.0 (patients inr range is 2.5-3.5) patient is currently taking 2.5mg Mon,Wed,Fri and 4.5mg all other days patients last dose change was on 04/25/22 due to a high level of 3.8 (dose at that time was 2.5mg ,Sun and 4.5mg all other days) patient has had a change in medication as patient just completed antibiotics on Sunday and coumadinand no uninstructed missed doses and no change in diet Advised patient that they would be contacted regarding medication dose and when to follow up after information is reviewed by provider. After provider review please contact the patient with information and schedule follow up appointment with coumadin clinic. FYI patient has been scheduled for a 1 week follow up inr on 05/09/22 documented in this encounterWhite Hospital09-27-2022 History of Present illness Narrative* Zaria Sauceda Ma - 04/25/2022 12:59 PM EDT Spoke with Guillermina, and notified him of changes below. Verbalized understanding. Updated Tracker. Zaria Sauceda Ma * Kolby Kim MD - 04/25/2022 12:07 PM EDT Hold one day, 2.5 MWF, 4.5 a day rest of the week. Recheck one week. * Tia Mock RN - 04/25/2022 12:00 PM EDT patient had inr completed at [facility] patients inr is 3.8 (patients inr range is 2.5-3.5) patient is currently taking 2.5mg Tues,Sat and 4.5mg all other days patients last dose change was on 03/16/22 due to a low level of 2.0 (dose at that time was 2.5mg Mon,Wed,Fri and 4.5mg all other days) patient has had a change in medication as patient is on antibiotics for another 5 days and no missed doses and no change in diet Advised patient that they would be contacted regarding medication dose and when to follow up after information is reviewed by provider. After provider review please contact the patient with information and schedule follow up appointment with coumadin clinic. FYI- patient has been scheduled for a 1 week follow up inr on 05/02/22 documented in this encounterWhite Hospital09-21-2022 History of Present illness Narrative* Nat Benavides APRN.SODA TESTER - 04/19/2022 3:16 PM EDT Images from the original note were not included. Subjective Laceration Elza Chu is a 76 year old female who presents with a wound from a dog scratch 2 weeks ago. States that the scratch had yellow/green drainage this morning and is intermittently tender. Has beencovering with neosporin and gauze at home. Review of Systems Constitutional: Negative for chills and fever. Respiratory: Positive for cough and sputum production. Skin: Negative for itching and rash. Dog scratch on left forearm Neurological: Negative for tingling and sensory change. BP 150/86 Pulse 70 Temp 36.2 C (97.2 F) Resp 20 Wt 62.7 kg (138 lb 3.2 oz) SpO2 95% BMI26.78 kg/m PAST MEDICAL HISTORY Diagnosis Date Adjustment disorder with depressed mood Aortic valve disorder Dr. Mckay Carotid stenosis Compression deformity of vertebra Congestive heart failure (HCC) COPD (chronic obstructive pulmonary disease) (HCC) 01/03/2013 Esophageal reflux Normal EGD 12/2012 H/O aortic valve replacement INR should be 2.5 to 3.5 High blood pressure Hyperlipidemia Impaired glucose tolerance Intrinsic asthma 06/[address] done per Dr. Mckay Migraine Myalgia and myositis, unspecified Other forms of migraine Thyroid nodule Unspecified essential hypertension PAST SURGICAL HISTORY Procedure Laterality Date ANTERIOR COLPORRAPHY RPR CYSTOCELE W/CYSTO 2001 w/ uterosacral suspension CARDIOVERSION [facility]- Spring 2019 CLOSURE SEMILUNAR VALVE AORTIC/PULM SUTURE/PATCH 2003 had aortic valve replacement w/ bovine valve COLONOSCOPY FLX DX W/COLLJ SPEC WHEN PFRMD 01/15/13 Colonoscopy COLSC FLX W/RMVL OF TUMOR POLYP LESION SNARE TQ 05/07/2017 Colonoscopy - cecal inflammatory polyps. Repeat in 5 yrs DISPLACEMENT THERAPY PROETZ TYPE x3 ESOPHAGOGASTRODUODENOSCOPY TRANSORAL DIAGNOSTIC 01/15/13 EGD ESOPHAGOGASTRODUODENOSCOPY TRANSORAL DIAGNOSTIC 05/07/2017 EGD FOOT RIGHT OP SURGERY 05/05/2009 HEMORRHOIDECTOMY XTRNL 2/> COLUMN/GROUP LAPS VAGINAL HYSTERECTOMY UTERUS 250 GM/< 2002/2001 usvvs, enterocele repair,apr,lsc pvdr,cysto,spt LOW BACK DISK SURGERY 06/2011 OOPHORECTOMY PARTIAL/TOTAL UNI/BI PAST SURGICAL HISTORY OF 05/10 Thyroid [id number] PAST SURGICAL HISTORY OF aug and september 2011 cataract removal PAST SURGICAL HISTORY OF 06/2012 4 sinus surgeries Thea Little PAST SURGICAL HISTORY OF 2013 aortic valve with On-X valve PERCUTANEOUS AORTIC VALVE REPLACEMENT 09/2013 POSTERIOR COLPORRHAPHY, REPAIR RECTOCELE 2001 SINUS SURGERY PROC UNLISTED 5 times TONSILLECTOMY PRIMARY/SECONDARY <AGE 11 TOTAL ABDOMINAL HYSTERECT W/WO RMVL TUBE OVARY age 31 ALLERGIES Adhesive, Dextromethorphan, Sulfa (Sulfonamide Antibiotics), Celebrex [Celecoxib], Aricept [Donepezil], Compazine [Prochlorperazine], Crestor [Rosuvastatin Calcium], Gabapentin, Lipitor [Atorvastatin Calcium], Lisinopril, No Latex Allergy [Other], Oxycodone, Penicillins, Prozac [Fluoxetine Hcl], Ultram [Tramadol Hcl], and Codeine MEDICATIONS valACYclovir (VALTREX) 500 mg tablet^Take 500 mg by mouth.^Disp: ^Rfl: warfarin (COUMADIN) 2.5 mg tablet^2.5 mg MWF and 4.5 mg all other days or as directed^Disp: 90 tablet^Rfl: 3 ferrous sulfate 325 mg (65 mg iron) tablet^Take 1 tablet by mouth twice daily with meals.^Disp: 60 tablet^Rfl: 2 LORazepam (ATIVAN) 1 mg tablet^Take 0.5 tablets by mouth twice daily for 90 days.^Disp: 90 tablet^Rfl: 0 PARoxetine (PAXIL) 20 mg tablet^Take 1 tablet by mouth once daily.^Disp: 90 tablet^Rfl: 3 ergocalciferol 50,000 unit capsule (VITAMIN D2, DRISDOL)^Take 1 capsule by mouth one time a week.^Disp: 12 capsule^Rfl: [address] (PROTONIX) 40 mg tablet^Take 1 tablet by mouth twice daily.^Disp: 180 tablet^Rfl: 3 warfarin (COUMADIN) 3 mg tablet^2.5 mg MW and 4.5 mg all other days or as directed ^Disp: 90 tablet^Rfl: 3 furosemide (LASIX) 40 mg tablet^Take 1 tablet by mouth once daily.^Disp: 90 tablet^Rfl: 1 montelukast (SINGULAIR) 10 mg tablet^Take 1 tablet by mouth daily at bedtime.^Disp: 90 tablet^Rfl: 3 potassium chloride ER (K-DUR, KLOR-CON) 20 mEq tablet^Take 1 tablet by mouth once daily.^Disp: 90 tablet^Rfl: 3 albuterol (PROVENTIL) 2.5 mg /3 mL (0.083 %) nebulizer solution^Use 3 mL via nebulizer every 6 hours as needed for wheezing/shortness of breath. DX: J45.40 Hx of moderate persistent Asthma^Disp: 360 mL^Rfl: 3 buPROPion XL (WELLBUTRIN XL) 150 mg 24 hr tablet^Take 1 tablet by mouth once daily.^Disp: 90 tablet^Rfl: 3 warfarin (COUMADIN) 2.5 mg tablet^2.5 mg Sun/Sun, 4.5 mg all other days or as directed ^Disp: ^Rfl: famotidine (PEPCID) 20 mg tablet^Take 1 tablet by mouth at bedtime as needed.^Disp: 30 tablet^Rfl: 5 amiodarone (PACERONE) 200 mg tablet^Take 100 mg by mouth once daily. ^Disp: ^Rfl: albuterol HFA (PROAIR HFA) 90 mcg/actuation inhaler^Inhale 2 Puffs as instructed every 4 hours as needed.^Disp: 3 Inhaler^Rfl: 0 budesonide-formoterol (SYMBICORT) 160-4.5 mcg/actuation inhaler^Inhale 2 Puffs as instructed twice daily.^Disp: ^Rfl: acetaminophen (TYLENOL EXTRA STRENGTH) 500 mg tablet^Take 1 tablet by mouth every 4 hours as neededfor Pain. RANGE FREQ?^Disp: ^Rfl: 0 Nebulizer^NEBULIZER FOR HOME USE and necessary supplies. DX: Hypoxemia, Pneumonia and Hemoptisis^Disp: 1 Each^Rfl: 0 triamcinolone acetonide (NASACORT AQ) 55 mcg nasal inhaler^Use 1 [place] in the nose once daily.^Disp: ^Rfl: pravastatin (PRAVACHOL) 80 mg tablet^TAKE 1 TABLET BY MOUTH ONCE DAILY^Disp: 90 tablet^Rfl: 3 aspirin 81 mg chewable tablet^Take 2 tablets by mouth once daily.^Disp: ^Rfl: 0 metoprolol succinate XL, long acting, 50 mg 24 hr tablet^Take 1 tablet by mouth once daily.^Disp: 30 tablet^Rfl: 2 ezetimibe(ZETIA 10 MG TAB)^Take one(1) tablet daily.^Disp: ^Rfl: 0 doxycycline (VIBRA-TABS) 100 mg tablet^Take 1 tablet by mouth twice daily for 10 days.^Disp: 20 tablet^Rfl: 0 lidocaine viscous (LIDOCAINE VISCOUS) 2 % solution^Take 15 mL by mouth every 3 hours as needed for pain.^Disp: 120 mL^Rfl: 1 (Patient not taking: Reported on 04/19/2022) amoxicillin-clavulanic acid (AUGMENTIN) 875-125 mg per tablet^Take 1 tablet by mouth twice daily.^Disp: ^Rfl: (Patient not taking: Reported on 12/07/2021 ) FAMILY HISTORY Problem Relation Age of Onset Heart Mother Heart Father Diabetes Brother Hypertension Brother Lipids Brother Lipids Daughter other (Depression) Daughter GI Son Lipids Son Diabetes Sister Lipids Sister Social History Tobacco Use Smoking status: Never Smokeless tobacco: Never Tobacco comments: Father smoked in childhood home. Spouse non-smoker. Vaping Use Vaping Use: Never used Substance Use Topics Alcohol use: No Drug use: No Objective Physical Exam Vitals and nursing note reviewed. Constitutional: Appearance: Normal appearance. Cardiovascular: Rate and Rhythm: Normal rate and regular rhythm. Pulmonary: Effort: Pulmonary effort is normal. Lymphadenopathy: Cervical: No cervical adenopathy. Skin: General: Skin is warm and dry. Findings: Erythema and laceration present. No bruising, ecchymosis or rash. Neurological: Mental Status: She is alert. ASSESSMENT/PLAN: 1. Skin infection - ICD9: 686.9, ICD10: L08.9 - DOXYCYCLINE HYCLATE 100 MG TABLET - Cleanse with soap and water daily Neyda Phelan APRN Student TEACHING PROVIDER (Physician/PA/PAPER BAG PRESS OPERATOR) NOTE OF PERSONAL INVOLVEMENT IN CARE: I have personally seen and examined the patient and performed the medical decision-making components. I have reviewed the Advanced Practice Registered Nurse (PAPER BAG PRESS OPERATOR) Student's documentation and verified the findings in the note as written. Any additions or changes are noted in bold/italics. Signature: Nat Benavides Date: 04/19/2022 Time: 3:41 PM documented in this encounterWhite Hospital09-21-2022 Instructions* Patient Instructions* Neyda Phelan - 04/19/2022 3:16 PM EDT ASSESSMENT/PLAN: 1. Skin infection - ICD9: 686.9, ICD10: L08.9 - DOXYCYCLINE HYCLATE 100 MG TABLET Neyda Phelan APRN Student CELLULITIS: Your exam shows you have an infection of the skin called cellulitis. This infection usually develops after an injury, cut, bite, or sting, but may occur without any known cause. Usually there is a localized area of redness, swelling, and pain which gets constantly bigger unless treatment is started. If cellulitis is severe or does not respond to initial treatment, hospital care with antibiotic injections may be needed. Treatment of cellulitis includes antibiotics along with resting and elevating the affected area until the infection improves. You should apply moist, warm compresses to the area for 30 minutes 4 times daily also. Please see your doctor if the pain and swelling from your infection are not better after two days of treatment. Call your doctor or go to the emergency department right away if you develop fever, chills, or other serious problems. You may require a tetanus booster if you are not current with your inmunizations. documented in this encounterWhite Hospital09-13-2022 History of Present illness Narrative* Ivis Carrington RN - 04/11/2022 10:19 AM EDT INSIGHT CDM TELEPHONIC OUTREACH Provider Action/FYI: Patient reports she is doing okay, states she has a scratch on her left arm from their dog, happened last week . Patient states spouse has been changing bandages daily, does not appear to be getting better, states she did feel chilled and fevered last evening, denies symptoms today. Advised patient to go to [facility] to be evaluated, patient agreeable. Patient had no further questions, concerns, needs at this time. Contact made with patient: Yes Patient identified by name and . Discussed care with patient It s nice talking to you again. As a reminder, this is our bi-weekly check-in where I will be asking you questions about your health. This will only take a few minutes of your time. Is this a good time? Yes Symptoms What Chronic Disease(s) does the patient have: CKD and COPD Do you check your blood pressures at home? No Do you have new or worse shortness of breath with activity? No Do you feel like you are dehydrated for any reason, including not being able to eat or drink normally, or having less urine/much darker urine than normal for you? No Do you check your daily weight at home? No and Do you have new or worsening cough? No Do you have new or worsening wheezing? No Do you need to use your rescue (Albuterol) inhaler or nebulizer more often than normal? No Are you having any other symptoms that your PCP needs to know about? No Symptom Escalation The patient required an escalation for symptom(s)? No Medications Do you have any questions about taking your medication or which medications you should be on? No Do you need any medication refills at this time, including any of the medications you might take only when needed? No Social We would like to make sure you have what you need so that your basic needs are met- including your personal safety, food, housing and medications? Would you like to speak with a social work seam steamer to help give you support for any of these needs? No It can be normal to feel anxious or down during a time like this. Would you like to talk to a mental health professional about how you have been feeling? No Closing Thank you for taking the time to talk with me today. We want to work with you to ensure that we arekeeping your medical condition(s) well-controlled and to keep you healthy and out of the doctor's office or hospital. It s also not too late for me to sign you up for automated weekly questionnaires through [employer]. This is an easy way for us to stay connected each week. Are you interested? No, I understand. We can always sign you up in the future if you change your mind. Just as a reminder, will continue to call you every other week to check in on your health. Our calls should take 10-15 minutes or less. Remember, if you have concerns in between our calls, please call your PCP's office right away. Thank you. Enter next patient outreach date for two weeks on the same day of the week as today in the Track PtOutreach and End outreach. documented in this encounterWhite Hospital09-07-2022 History of Present illness Narrative* Kolby Kim MD - 04/05/2022 12:53 PM EDT agree * Tia Mock RN - 04/05/2022 12:46 PM EDT patient had inr completed at [facility] patients inr is 2.9 (patients inr range is 2.5-3.5) patient is currently taking 2.5mg Tues,Sat and 4.5mg all other days patients last dose change was on 03/16/22 due to a low level of 2.0 (dose at that time was 2.5mg Mon,Wed,Fri and 4.5mg all other days) patient has had no changes in medication and no missed doses and no change in diet Advised patient to continue on the same dose(s) and that they would only be contacted regarding dosage and follow up instructions after review with provider, if a change is needed. Written instructions given and patient verbalized understanding. Presently scheduled in 3 weeks (04/25/22) for follow up INR. documented in this encounterWhite Hospital08-30-2022 History of Present illness Narrative* Ivis Carrington RN - 03/28/2022 10:20 AM EDT INSIGHT CDM TELEPHONIC OUTREACH Provider Action/FYI: Patient reports they are doing good, had no questions, concerns, needs at this time. Contact made with patient: Yes Patient identified by name and . Discussed care with patient It s nice talking to you again. As a reminder, this is our bi-weekly check-in where I will be asking you questions about your health. This will only take a few minutes of your time. Is this a good time? Yes Symptoms What Chronic Disease(s) does the patient have: CHF, CKD, and COPD Do you check your blood pressures at home? No Do you have new or worse shortness of breath with activity? No Do you have new or worsening trouble breathing while lying flat? No Do you have new or worsening swelling of legs, feet or ankles? No Do you feel like you are dehydrated for any reason, including not being able to eat or drink normally, or having less urine/much darker urine than normal for you? No Do you check your daily weight at home? No and Do you have new or worsening cough? No Do you have new or worsening wheezing? No Do you need to use your rescue (Albuterol) inhaler or nebulizer more often than normal? No Are you having any other symptoms that your PCP needs to know about? No Symptom Escalation The patient required an escalation for symptom(s)? No Medications Do you have any questions about taking your medication or which medications you should be on? No Do you need any medication refills at this time, including any of the medications you might take only when needed? No Social We would like to make sure you have what you need so that your basic needs are met- including your personal safety, food, housing and medications? Would you like to speak with a social work seam steamer to help give you support for any of these needs? No It can be normal to feel anxious or down during a time like this. Would you like to talk to a mental health professional about how you have been feeling? No Closing Thank you for taking the time to talk with me today. We want to work with you to ensure that we arekeeping your medical condition(s) well-controlled and to keep you healthy and out of the doctor's office or hospital. It s also not too late for me to sign you up for automated weekly questionnaires through [employer]. This is an easy way for us to stay connected each week. Are you interested? No, I understand. We can always sign you up in the future if you change your mind. Just as a reminder, will continue to call you every other week to check in on your health. Our calls should take 10-15 minutes or less. Remember, if you have concerns in between our calls, please call your PCP's office right away. Thank you. Enter next patient outreach date for two weeks on the same day of the week as today in the Track PtOutreach and End outreach. documented in this encounterWhite Hospital08-23-2022 Instructions* Patient Instructions* Millie Olmedo APRN.CNP - 03/21/2022 12:12 PM EDT Continue the same medications. 2. Follow-up w/ brain health, as scheduled. 3. Follow-up w/ eye doctor as scheduled. 4. Recheck in 3 months. documented in this encounterWhite Hospital08-23-2022 History of Present illness Narrative* Millie Olmedo APRN.CNP - 03/21/2022 11:40 AM EDT This is a 76 year old female who presents today with: Patient presents with: Follow Up HISTORY OF PRESENT ILLNESS: Elza Chu is a 76 year old female. Patient presents with: Follow Up Pt presents today for 3-month recheck. She is schedule w/ brain health in April to follow-up. Suspected lewy body dementia. HTN: Patient is compliant with meds No Monitors bp at home: No. Denies side effects: No. Chest pain: No. Dyspnea: No. Edema: usually not much. Palpitations: No. Syncope: No. Headache: I always have a headache, but not bad. Dizziness: Yes. position. 4-5 minutes or less. COPD Follows with pulmonology. Last visit 2-3 months ago. Breathing has been stable. CHF [facility] - Goes every 6 months. Breathing has been stable. No swelling. Anxiety Doesn't feel well controlled. From chart review, appears that previously followed by psych. Reports some tension with spouse. Admits that counseling may be beneficial. Declines any thoughts of medication adjustments. Right eye redness. Has been going on for a few days. Some drainage. Some pressure. Doesn't feel like seeing as well out of the eye. Refers that she had a piece of glitter in her eye a couple of days ago. Using visine and a little improved today. PAST MEDICAL HISTORY: PAST MEDICAL HISTORY Diagnosis Date Adjustment disorder with depressed mood Aortic valve disorder Dr. Mckay Carotid stenosis Compression deformity of vertebra Congestive heart failure (HCC) COPD (chronic obstructive pulmonary disease) (HCC) 01/03/2013 Esophageal reflux Normal EGD 12/2012 H/O aortic valve replacement INR should be 2.5 to 3.5 High blood pressure Hyperlipidemia Impaired glucose tolerance Intrinsic asthma 06/[address] done per Dr. Mckay Migraine Myalgia and myositis, unspecified Other forms of migraine Thyroid nodule Unspecified essential hypertension PAST SURGICAL HISTORY Procedure Laterality Date ANTERIOR COLPORRAPHY RPR CYSTOCELE W/CYSTO 2001 w/ uterosacral suspension CARDIOVERSION [facility]- Spring 2019 CLOSURE SEMILUNAR VALVE AORTIC/PULM SUTURE/PATCH 2003 had aortic valve replacement w/ bovine valve COLONOSCOPY FLX DX W/COLLJ SPEC WHEN PFRMD 01/15/13 Colonoscopy COLSC FLX W/RMVL OF TUMOR POLYP LESION SNARE TQ 05/07/2017 Colonoscopy - cecal inflammatory polyps. Repeat in 5 yrs DISPLACEMENT THERAPY PROETZ TYPE x3 ESOPHAGOGASTRODUODENOSCOPY TRANSORAL DIAGNOSTIC 01/15/13 EGD ESOPHAGOGASTRODUODENOSCOPY TRANSORAL DIAGNOSTIC 05/07/2017 EGD FOOT RIGHT OP SURGERY 05/05/2009 HEMORRHOIDECTOMY XTRNL 2/> COLUMN/GROUP LAPS VAGINAL HYSTERECTOMY UTERUS 250 GM/< usvvs, enterocele repair,apr,lsc pvdr,cysto,spt LOW BACK DISK SURGERY 06/2011 OOPHORECTOMY PARTIAL/TOTAL UNI/BI PAST SURGICAL HISTORY OF 05/10 Thyroid [id number] PAST SURGICAL HISTORY OF aug and september 2011 cataract removal PAST SURGICAL HISTORY OF 06/2012 4 sinus surgeries Thea Little PAST SURGICAL HISTORY OF 2013 aortic valve with On-X valve PERCUTANEOUS AORTIC VALVE REPLACEMENT 09/2013 POSTERIOR COLPORRHAPHY, REPAIR RECTOCELE 2001 SINUS SURGERY PROC UNLISTED 5 times TONSILLECTOMY PRIMARY/SECONDARY <AGE 11 TOTAL ABDOMINAL HYSTERECT W/WO RMVL TUBE OVARY age 31 ALLERGIES Adhesive, Dextromethorphan, Sulfa (Sulfonamide Antibiotics), Celebrex [Celecoxib], Aricept [Donepezil], Compazine [Prochlorperazine], Crestor [Rosuvastatin Calcium], Gabapentin, Lipitor [Atorvastatin Calcium], Lisinopril, No Latex Allergy [Other], Oxycodone, Penicillins, Prozac [Fluoxetine Hcl], Ultram [Tramadol Hcl], and Codeine MEDICATIONS Current Outpatient Medications Medication Sig warfarin (COUMADIN) 2.5 mg tablet 2.5 mg MWF and 4.5 mg all other days or as directed ferrous sulfate 325 mg (65 mg iron) tablet Take 1 tablet by mouth twice daily with meals. LORazepam (ATIVAN) 1 mg tablet Take 0.5 tablets by mouth twice daily for 90 days. PARoxetine (PAXIL) 20 mg tablet Take 1 tablet by mouth once daily. ergocalciferol 50,000 unit capsule (VITAMIN D2, DRISDOL) Take 1 capsule by mouth one time a week. pantoprazole DR (PROTONIX) 40 mg tablet Take 1 tablet by mouth twice daily. warfarin (COUMADIN) 3 mg tablet 2.5 mg MW and 4.5 mg all other days or as directed furosemide (LASIX) 40 mg tablet Take 1 tablet by mouth once daily. montelukast (SINGULAIR) 10 mg tablet Take 1 tablet by mouth daily at bedtime. potassium chloride ER (K-DUR, KLOR-CON) 20 mEq tablet Take 1 tablet by mouth once daily. albuterol (PROVENTIL) 2.5 mg /3 mL (0.083 %) nebulizer solution Use 3 mL via nebulizer every 6 hours as needed for wheezing/shortness of breath. DX: J45.40 Hx of moderate persistent Asthma buPROPion XL (WELLBUTRIN XL) 150 mg 24 hr tablet Take 1 tablet by mouth once daily. famotidine (PEPCID) 20 mg tablet Take 1 tablet by mouth at bedtime as needed. amiodarone (PACERONE) 200 mg tablet Take 100 mg by mouth once daily. albuterol HFA (PROAIR HFA) 90 mcg/actuation inhaler Inhale 2 Puffs as instructed every 4 hours as needed. budesonide-formoterol (SYMBICORT) 160-4.5 mcg/actuation inhaler Inhale 2 Puffs as instructed twice daily. Nebulizer NEBULIZER FOR HOME USE and necessary supplies. DX: Hypoxemia, Pneumonia and Hemoptisis pravastatin (PRAVACHOL) 80 mg tablet TAKE 1 TABLET BY MOUTH ONCE DAILY aspirin 81 mg chewable tablet Take 2 tablets by mouth once daily. metoprolol succinate XL, long acting, 50 mg 24 hr tablet Take 1 tablet by mouth once daily. ezetimibe(ZETIA 10 MG TAB) Take one(1) tablet daily. lidocaine viscous (LIDOCAINE VISCOUS) 2 % solution Take 15 mL by mouth every 3 hours as needed for pain. amoxicillin-clavulanic acid (AUGMENTIN) 875-125 mg per tablet Take 1 tablet by mouth twice daily. (Patient not taking: Reported on 12/07/2021 ) warfarin (COUMADIN) 2.5 mg tablet 2.5 mg Mon/Sun, 4.5 mg all other days or as directed acetaminophen (TYLENOL EXTRA STRENGTH) 500 mg tablet Take 1 tablet by mouth every 4 hours as neededfor Pain. RANGE FREQ? triamcinolone acetonide (NASACORT) 55 mcg nasal inhaler Use 1 [place] in the nose once daily. Current Facility-Administered Medications Medication Dose Route Frequency bupivacaine 7.5 mg injection (SENSORCAINE) 3 mL OTHER As Directed FAMILY HISTORY Problem Relation Age of Onset Heart Mother Heart Father Diabetes Brother Hypertension Brother Lipids Brother Lipids Daughter other (Depression) Daughter GI Son Lipids Son Diabetes Sister Lipids Sister Social History Tobacco Use Smoking status: Never Smokeless tobacco: Never Tobacco comments: Father smoked in childhood home. Spouse non-smoker. Vaping Use Vaping Use: Never used Substance Use Topics Alcohol use: No Drug use: No EXAM: BP 142/82 Pulse 64 Resp 18 Wt 62.6 kg (138 lb) SpO2 98% BMI 26.74 kg/m PHYSICAL EXAM: General Appearance: Well appearing, alert, in no acute distress, well-hydrated, well nourished.. Skin: Skin color, texture, turgor normal, no suspicious rashes or lesions. Head: Normocephalic, no masses, lesions, tenderness or abnormalities. Eyes: right eye w/ redness. Extraocular movements are intact. No drainage at present. No foreign body appreciated. Lungs: scattered rhonchi. Heart: RRR without murmur, gallop, or rubs. No ectopy. Extremities: No deformities, edema, skin discoloration, clubbing or cyanosis. Good capillary refill. . Neurologic: Gait normal. ASSESSMENT/PLAN: 1. Hypertension, unspecified type - ICD9: 401.9, ICD10: I10 (primary diagnosis) - fair control - Continue current medication(s) - Recommended regular aerobic exercise. - Recommend home blood pressure monitoring, to bring results in on next visit - Goal of BP <130/80 2. Anxiety - ICD9: 300.00, ICD10: F41.9 Declines medication adjustment. May consider counseling. 3. Chronic obstructive pulmonary disease, unspecified COPD type (HCC) - ICD9: 496, ICD10: J44.9 Continue per pulmonology. 4. Lewy body dementia without behavioral disturbance (HCC) - ICD9: 331.82, 294.10, ICD10: G31.83, F02.80 Eval by [facility], as scheduled. 5. Heart failure, diastolic, chronic (HCC) - ICD9: 428.32, ICD10: I50.32 Stable. Continue per cardiololgy. 6. Red eye - ICD9: 379.93, ICD10: H57.89 Declines eye drops. Encouraged eye doctor eval, and they report she has an appt next week. 7. Hyperlipidemia LDL goal <100 - ICD9: 272.4, ICD10: E78.5 No problems with statin. Discussed treatment plan and patient voices understanding. Patient's questions answered appropriately. Medications and potential side effects were discussed and patient voices understanding. Return to the office as scheduled or as needed for worsening/no improvement. Millie Olmedo APRN.SODA TESTER documented in this encounterWhite Hospital08-22-2022 History of Present illness Narrative* Kenneth Ng MD - 03/20/2022 4:42 PM EDT No changes in coumadin dosing needed. Agree with next INR check. * Tia Mock RN - 03/20/2022 2:37 PM EDT patient had inr completed at [facility] patients inr is 2.6 (patients inr range is 2.5-3.5) patient is currently taking 2.5mg Tues,Sat and 4.5mg all other days patients last dose change was on 03/16/22 due to a low level of 2.0 (dose at that time was 2.5mg Mon,Wed,Fri and 4.5mg all other days) patient has had no changes in medication except for coumadin and no missed doses and no change in diet Advised patient to continue on the same dose(s) and that they would only be contacted regarding dosage and follow up instructions after review with provider, if a change is needed. Written instructions given and patient verbalized understanding. Presently scheduled in 2 weeks () for follow up I NR since this is the first normal reading since dose change documented in this encounterWhite Hospital08-18-2022 History of Present illness Narrative* Dandre Ovalle MD - 03/16/2022 5:18 PM EDT OK for 1 week follow up as scheduled Dandre Ovalle MD * Zaria Sauceda Ma - 03/16/2022 3:26 PM EDT Called and left detailed message as noted below on pt's VM. Notified her to continue with upcoming appt as scheduled with [facility] Nurse on 03/20 in 1 week. Routed back to [facility] to make sure he agrees with 1 week recheck vs 2 week. If agreeable, note and close encounter. Zaria Sauceda Ma * Dandre Ovalle MD - 03/16/2022 3:11 PM EDT Go to 2.5 mg Tues and Sat; 4.5 mg all other days Recheck in 2 weeks Dandre Ovalle MD * Tia Mock RN - 03/16/2022 1:37 PM EDT patient had inr completed at [facility] patients inr is 2.0 (patients inr range is 2.5-3.5) patient is currently taking 2.5mg Mon,Wed,Fri and 4.5mg all other days patients last dose change was on 01/24/22 due to a high level of 3.8 (dose at that time was 2.5mg Mon,Wed and 4.5mg all other days) patient has had no changes in medication and no missed doses and no change in diet Advised patient that they would be contacted regarding medication dose and when to follow up after information is reviewed by provider. After provider review please contact the patient with information and schedule follow up appointment with coumadin clinic. ok to leave a detailed message if no answer or to speak with spouse FYI- patient has been scheduled for a 1 week follow up inr on 03/20/22 documented in this encounterWhite Hospital08-17-2022 Miscellaneous Notes* Telephone Encounter - Lucretia Fabian RN - 03/15/2022 3:59 PM EDT Patient having issues getting medication through [facility] due to instructions. Instructions updated to 2.5 mg MWF per last anticoagulation note on 03/09/2022. Patient asking for prescription to be sent to [facility] where she gets 3 mg Warfarin prescription from. Please review and advise, Lucretia Fabian RN documented in this encounterWhite Hospital08-16-2022 History of Present illness Narrative* Ivis Carrington RN - 03/14/2022 9:29 AM EDT INSIGHT CDM TELEPHONIC OUTREACH Provider Action/FYI: Contact made with patient: Yes Patient identified by name and . Discussed care with patient It s nice talking to you again. As a reminder, this is our bi-weekly check-in where I will be asking you questions about your health. This will only take a few minutes of your time. Is this a good time? Yes Symptoms What Chronic Disease(s) does the patient have: CHF, CKD, and COPD Do you check your blood pressures at home? No Do you have new or worse shortness of breath with activity? No Do you have new or worsening trouble breathing while lying flat? No Do you have new or worsening swelling of legs, feet or ankles? No Do you feel like you are dehydrated for any reason, including not being able to eat or drink normally, or having less urine/much darker urine than normal for you? No Do you check your daily weight at home? No and Do you have new or worsening cough? No Do you have new or worsening wheezing? No Do you need to use your rescue (Albuterol) inhaler or nebulizer more often than normal? No Are you having any other symptoms that your PCP needs to know about? No Symptom Escalation The patient required an escalation for symptom(s)? No Medications Do you have any questions about taking your medication or which medications you should be on? No Do you need any medication refills at this time, including any of the medications you might take only when needed? No Social We would like to make sure you have what you need so that your basic needs are met- including your personal safety, food, housing and medications? Would you like to speak with a social work seam steamer to help give you support for any of these needs? No It can be normal to feel anxious or down during a time like this. Would you like to talk to a mental health professional about how you have been feeling? No Closing Thank you for taking the time to talk with me today. We want to work with you to ensure that we arekeeping your medical condition(s) well-controlled and to keep you healthy and out of the doctor's office or hospital. It s also not too late for me to sign you up for automated weekly questionnaires through [employer]. This is an easy way for us to stay connected each week. Are you interested? No, I understand. We can always sign you up in the future if you change your mind. Just as a reminder, will continue to call you every other week to check in on your health. Our calls should take 10-15 minutes or less. Remember, if you have concerns in between our calls, please call your PCP's office right away. Thank you. Enter next patient outreach date for two weeks on the same day of the week as today in the Track PtOutreach and End outreach. documented in this encounterWhite Hospital08-15-2022 Miscellaneous Notes* Telephone Encounter - Keily Mcpherson Ma - 03/13/2022 10:56 AM EDT Spoke to pharmacy and this was filled on 03/09/22 Keily Mcpherson Ma * Telephone Encounter - Gerri Santoro - 03/13/2022 10:24 AM EDT Elza Chu is calling Kolby Kim MD today [facility] told the patient there is a problem filling the warfarin prescription. They are requesting our office call them at: [phone]. Please follow up with the patient because she only has 5 pills left. Patient has been identified by name and birthdate. Duration of symptoms: N/A Person calling: self Call patient at: at home [phone] (home) Was an appointment scheduled: No Closing statement: Results or non-symptom based questions: [facility] you for calling [facility], your call will be returned within the next business day. Gerri Olivia Pss documented in this encounterWhite Hospital08-11-2022 History of Present illness Narrative* Keily Mcpherson Ma - 03/09/2022 6:19 PM EDT Patient notified and appt scheduled * Jas Harrell PA-C - 03/09/2022 6:14 PM EDT Same dose recheck 1 week ThanksMichael PA-C * Tia Mock RN - 03/09/2022 2:38 PM EDT patient had inr completed at [facility] patients inr is 2.3 (patients inr range is 2.5-3.5) patient is currently taking 2.5mg Mon,Wed,Fri and 4.5mg all other days patients last dose change was on 01/24/22 due to a high level of 3.8 (dose at that time was 2.5mg Mon,Wed and 4.5mg all other days) patient has had a change in medication as pt just finished antibiotics no missed doses and no change in diet Advised patient that they would be contacted regarding medication dose and when to follow up after information is reviewed by provider. After provider review please contact the patient with information and schedule follow up appointment with coumadin clinic. FYI- patient has been scheduled for a 2 week follow up onr 03/20/22 (pt has appt with pcp also this day) documented in this encounterWhite Hospital08-09-2022 Miscellaneous Notes* Telephone Encounter - Crystal Baker - 03/07/2022 11:14 AM EDT Patient has been identified by name and date of : Yes Requested Prescriptions Pending Prescriptions Disp Refills warfarin (COUMADIN) 2.5 mg tablet 90 tablet 3 Si.5 mg MW and 4.5 mg all other days or as directed RX INSTRUCTIONS: The order in November was med update only - not sent to pharmacy Patient aware RX escripted to mail away pharmacy. No need to notify patient. Crysatl Baker documented in this encounterWhite Hospital08-03-2022 Miscellaneous Notes* Telephone Encounter - Kolby Kim MD - 03/01/2022 5:01 PM EDT oarrs done * Telephone Encounter - Jas Burgos RN - 03/01/2022 11:48 AM EDT Patient has been identified by name and date of : Yes Patient phones for refill(s): Pending Prescriptions Disp Refills FERROUS SULFATE 325 MG (65 MG IRON) TABLET 60 tablet 2 Sig: Take 1 tablet by mouth twice daily with meals. NAIN: No LORAZEPAM 1 MG TABLET 90 tablet 0 Sig: Take 0.5 tablets by mouth twice daily for 90 days. LATONIA Class: C-IV NAIN: No Date of last office visit with pcp: 02-20-22. Next appt: 03-20-22 Last 2 Encounter Wt Readings: Date: Wt: 02/20/2022 63 kg (139 lb) 12/07/2021 64.6 kg (142 lb 6.4 oz) Previous labs/tests for medication: Blood Pressure: BUN (mg/dL) Date Value 12/07/2021 15 09/01/2021 20 Sodium (mmol/L) Date Value 12/07/2021 141 09/01/2021 140 Last 1 Encounter BP Readings: Date: BP: 02/20/2022 132/72 Blood Counts: WBC (k/uL) Date Value 12/07/2021 8.82 09/01/2021 7.03 RBC (m/uL) Date Value 12/07/2021 4.99 09/01/2021 5.20 Hematocrit (%) Date Value 12/07/2021 45.8 09/01/2021 48.2 Hemoglobin (g/dL) Date Value 12/07/2021 13.8 09/01/2021 14.4 Platelet Count (k/uL) Date Value 12/07/2021 333 09/01/2021 278 Liver Function: ALT (U/L) Date Value 09/18/2021 15 09/01/2021 21 AST (U/L) Date Value 09/18/2021 18 09/01/2021 27 Please advise. Thank you. Jas Burgos RN documented in this encounterWhite Hospital08-02-2022 Miscellaneous Notes* Telephone Encounter - Zaria Sauceda Ma - 02/28/2022 9:27 AM EDT Spoke with pt and spouse regarding change in dosage below. Verbalized understanding. Tracker updated. Zaria Sauceda Ma * Telephone Encounter - Kolby Kim MD - 02/28/2022 8:44 AM EDT Hold x 1 day, then 2.5 mg a day, except 4.5 on T, TH,Sat. Recheck one week * Telephone Encounter - Keily Mcpherson Ma - 02/28/2022 8:35 AM EDT Last INR: INR 4.0 02/27/2022 Current dose of coumadin is: 2.5 mg Mon, Wed, Fri and 4.5 mg all other days. Previous INR (date and result): 3.2 on 02/16/22 Additional Clinical Information or narrative: no documented in this encounterWhite Hospital07-25-2022 Instructions* Patient Instructions* Kolby Kim MD - 02/20/2022 6:17 PM EDT Get inr next week documented in this encounterWhite Hospital07-25-2022 History of Present illness Narrative* Kolby Kim MD - 02/20/2022 6:02 PM EDT Patient presents with: Insect Bite: 3-4 days ago noticed had brusing was painful in the beginning no itching Cough: extra cough lately with lots of drainage HPI: Patient presents today for office visit for acute visit. Had a spot 3 -4 days ago on the right side of here face. No itching. Appeared bruised and was swollen. Is improving. Not hot Her wondered if she got bit there. INR was just done. Has been seeing Dr. Johnson. Believes she has a follow up soon. Started to cough more last week. No fever or chills. Not more short of breath. No new ear pain. No issues with taste or smell. No myalgias. No recent covid test. No vomiting or diarrhea. Some nausea. Her chronic sinuses are maybe a little worse. No new edema. No chest pain. MEDICATIONS: Current Outpatient Medications Medication Sig ergocalciferol 50,000 unit capsule (VITAMIN D2, DRISDOL) Take 1 capsule by mouth one time a week. pantoprazole DR (PROTONIX) 40 mg tablet Take 1 tablet by mouth twice daily. ferrous sulfate 325 mg (65 mg iron) tablet Take 1 tablet by mouth twice daily with meals. LORazepam (ATIVAN) 1 mg tablet Take 0.5 tablets by mouth twice daily for 90 days. warfarin (COUMADIN) 3 mg tablet 2.5 mg MW and 4.5 mg all other days or as directed warfarin (COUMADIN) 2.5 mg tablet 2.5 mg MW and 4.5 mg all other days or as directed furosemide (LASIX) 40 mg tablet Take 1 tablet by mouth once daily. montelukast (SINGULAIR) 10 mg tablet Take 1 tablet by mouth daily at bedtime. potassium chloride ER (K-DUR, KLOR-CON) 20 mEq tablet Take 1 tablet by mouth once daily. lidocaine viscous (LIDOCAINE VISCOUS) 2 % solution Take 15 mL by mouth every 3 hours as needed for pain. albuterol (PROVENTIL) 2.5 mg /3 mL (0.083 %) nebulizer solution Use 3 mL via nebulizer every 6 hours as needed for wheezing/shortness of breath. DX: J45.40 Hx of moderate persistent Asthma buPROPion XL (WELLBUTRIN XL) 150 mg 24 hr tablet Take 1 tablet by mouth once daily. amoxicillin-clavulanic acid (AUGMENTIN) 875-125 mg per tablet Take 1 tablet by mouth twice daily. (Patient not taking: Reported on 12/07/2021 ) warfarin (COUMADIN) 2.5 mg tablet 2.5 mg Mon/Wed, 4.5 mg all other days or as directed famotidine (PEPCID) 20 mg tablet Take 1 tablet by mouth at bedtime as needed. PARoxetine (PAXIL) 20 mg tablet Take 0.5 tablets by mouth once daily. amiodarone (PACERONE) 200 mg tablet Take 100 mg by mouth once daily. albuterol HFA (PROAIR HFA) 90 mcg/actuation inhaler Inhale 2 Puffs as instructed every 4 hours as needed. budesonide-formoterol (SYMBICORT) 160-4.5 mcg/actuation inhaler Inhale 2 Puffs as instructed twice daily. acetaminophen (TYLENOL EXTRA STRENGTH) 500 mg tablet Take 1 tablet by mouth every 4 hours as neededfor Pain. RANGE FREQ? Nebulizer NEBULIZER FOR HOME USE and necessary supplies. DX: Hypoxemia, Pneumonia and Hemoptisis triamcinolone acetonide (NASACORT) 55 mcg nasal inhaler Use 1 [place] in the nose once daily. pravastatin (PRAVACHOL) 80 mg tablet TAKE 1 TABLET BY MOUTH ONCE DAILY aspirin 81 mg chewable tablet Take 2 tablets by mouth once daily. metoprolol succinate XL, long acting, 50 mg 24 hr tablet Take 1 tablet by mouth once daily. ezetimibe(ZETIA 10 MG TAB) Take one(1) tablet daily. Current Facility-Administered Medications Medication Dose Route Frequency bupivacaine 7.5 mg injection (SENSORCAINE) 3 mL OTHER As Directed ALLERGIES: ALLERGIES Allergen Reactions Adhesive Rash Blistering at site of application. Dextromethorphan Other: See Comments, Mental Status Change Sulfa (Sulfonamide * Other: See Comments Renal dysfunction. Childhood reaction. Generalized swelling Celebrex [Celecoxib] Other: See Comments Migraine headache. Aricept [Donepezil] Myalgia muscle pain and difficulty walking Compazine [Prochlor* Other: See Comments low BP Crestor [Rosuvastat* GI Upset Gabapentin Intolerance Confusion, when coupled with norco Lipitor [Atorvastat* Myalgia Lisinopril Cough No Latex Allergy [O* Oxycodone Itching Penicillins Other: See Comments Heart palpitations. No rash or itch. Can take cephalosporins Prozac [Fluoxetine * Other: See Comments hallucinating Ultram [Tramadol Hc* Itching Codeine Itching PAST MEDICAL HISTORY Diagnosis Date Adjustment disorder with depressed mood Aortic valve disorder Dr. Mckay Carotid stenosis Compression deformity of vertebra Congestive heart failure (HCC) COPD (chronic obstructive pulmonary disease) (HCC) 01/03/2013 Esophageal reflux Normal EGD 12/2012 H/O aortic valve replacement INR should be 2.5 to 3.5 High blood pressure Hyperlipidemia Impaired glucose tolerance Intrinsic asthma 06/[address] done per Dr. Mckay Migraine Myalgia and myositis, unspecified Other forms of migraine Thyroid nodule Unspecified essential hypertension PAST SURGICAL HISTORY Procedure Laterality Date ANTERIOR COLPORRAPHY RPR CYSTOCELE W/CYSTO 2001 w/ uterosacral suspension CARDIOVERSION [facility]- Spring 2019 CLOSURE SEMILUNAR VALVE AORTIC/PULM SUTURE/PATCH 2004 had aortic valve replacement w/ bovine valve COLONOSCOPY FLX DX W/COLLJ SPEC WHEN PFRMD 01/15/13 Colonoscopy COLSC FLX W/RMVL OF TUMOR POLYP LESION SNARE TQ 05/07/2017 Colonoscopy - cecal inflammatory polyps. Repeat in 5 yrs DISPLACEMENT THERAPY PROETZ TYPE x3 ESOPHAGOGASTRODUODENOSCOPY TRANSORAL DIAGNOSTIC 01/15/13 EGD ESOPHAGOGASTRODUODENOSCOPY TRANSORAL DIAGNOSTIC 05/07/2017 EGD FOOT RIGHT OP SURGERY 05/05/2009 HEMORRHOIDECTOMY XTRNL 2/> COLUMN/GROUP LAPS VAGINAL HYSTERECTOMY UTERUS 250 GM/< 2002/2001 usvvs, enterocele repair,apr,lsc pvdr,cysto,spt LOW BACK DISK SURGERY 06/2011 OOPHORECTOMY PARTIAL/TOTAL UNI/BI PAST SURGICAL HISTORY OF 05/10 Thyroid [id number] PAST SURGICAL HISTORY OF aug and september 2011 cataract removal PAST SURGICAL HISTORY OF 06/2012 4 sinus surgeries Thea Little PAST SURGICAL HISTORY OF 2013 aortic valve with On-X valve PERCUTANEOUS AORTIC VALVE REPLACEMENT 09/2013 POSTERIOR COLPORRHAPHY, REPAIR RECTOCELE 2001 SINUS SURGERY PROC UNLISTED 5 times TONSILLECTOMY PRIMARY/SECONDARY <AGE 11 TOTAL ABDOMINAL HYSTERECT W/WO RMVL TUBE OVARY age 31 FAMILY HISTORY Problem Relation Age of Onset Heart Mother Heart Father Diabetes Brother Hypertension Brother Lipids Brother Lipids Daughter other (Depression) Daughter GI Son Lipids Son Diabetes Sister Lipids Sister Social History Tobacco Use Smoking status: Never Smoker Smokeless tobacco: Never Used Tobacco comment: Father smoked in childhood home. Spouse non-smoker. Vaping Use Vaping Use: Never used Substance Use Topics Alcohol use: No Drug use: No Reviewed current medications, allergies, past medical history, surgical history, family history andsocial history today. REVIEW OF SYSTEMS All other reviewed and negative other than HPI. HEALTH MAINTENANCE: Reviewed health maintenance issues today and recommended the following in detail. COVID-19 VACCINE(4 - Booster for Pfizer series) due on 10/06/2021 VITALS: BP 132/72 Pulse (!) 57 Wt 63 kg (139 lb) SpO2 96% BMI 26.93 kg/m Last 4 Encounter Wt Readings: Date: Wt: 02/20/2022 63 kg (139 lb) 12/07/2021 64.6 kg (142 lb 6.4 oz) 10/19/2021 65.3 kg (144 lb) 09/16/2021 66.2 kg (146 lb) PHYSICAL EXAMINATION: General appearance: Well appearing, alert, in no acute distress, well-hydrated, well nourished. andbreathing is nonlabored. Skin: slight bruised area on left tenriism. No redness or warmth. Appears to be resolving. Is <1 cm in diameter. nowarmt Head: Normocephalic, no masses, lesions, tenderness or abnormalities Eyes: Anicteric sclera. Pupils are equally round and reactive to light. Extraocular movements are intact. Neck: supple. Lungs: moving air well. Posterior rhonchi. Heart: RRR without murmur, gallop, or rubs. No ectopy Abdomen: Normal abdominal exam, Abdomen soft, non-tender. Bowel sounds normal. No masses, organomegaly Extremities: No deformities, edema, skin discoloration, clubbing or cyanosis. Good capillary refill. ASSESSMENT/PLAN: 1. Acute cough - ICD9: 786.2, ICD10: R05.1 (primary diagnosis) - cover with doxy and prednisone. Still on oxygen. Discussed risks and benefits of new medication with the patient. Advised them to call if any side effects or questions. Red flags for re-assessment reviewed with patient in detail. Call if symptoms worsen at all or if not better in one to two weeks Reviewed diagnosis and treatment options in detail. Questions were answered. Patient expressed understanding of treatment plan. - get inr next week. - COVID WITH FLUA+B, ROUTINE 2. Depression, unspecified depression type - ICD9: 311, ICD10: F32.A - PAROXETINE 20 MG TABLET 3. Paroxysmal atrial fibrillation (HCC) - ICD9: 427.31, ICD10: I48.0 - PROTHROMBIN TIME/PT 4. Bronchiectasis without complication (HCC) - ICD9: 494.0, ICD10: J47.9 5. Chronic obstructive pulmonary disease, unspecified COPD type (HCC) - ICD9: 496, ICD10: J44.9 - COVID WITH FLUA+B, ROUTINE - DOXYCYCLINE MONOHYDRATE 100 MG TABLET - PREDNISONE 20 MG TABLET 6. Chronic sinusitis, unspecified location - ICD9: 473.9, ICD10: J32.9 7. Cough, unspecified type - ICD9: 786.2, ICD10: R05.9 - XR CHEST 2V FRONTAL/LAT - COVID WITH FLUA+B, ROUTINE Kolby Kim documented in this encounterWhite [facility]07-21-[facility]22 History of Present illness Narrative* Kolby Kim MD - 02/16/2022 1:32 PM EDT agree * Tia Mock RN - 02/16/2022 12:36 PM EDT patient had inr completed at [facility] patients inr is 3.2 (patients inr range is 2.5-3.5) patient is currently taking 2.5mg Mon,Wed,Fri and 4.5mg all other days patients last dose change was on 01/24/22 due to a high level of 3.8 (dose at that time was 2.5mg Mon,Wed and 4.5mg all other days) patient has had no changes in medication and no missed does and no change in diet Advised patient to continue on the same dose(s) and that they would only be contacted regarding dosage and follow up instructions after review with provider, if a change is needed. Written instructions given and patient verbalized understanding. Presently scheduled in 3 weeks (03/09/22) for follow up INR. documented in this encounterWhite Hospital07-19-2022 History of Present illness Narrative* Ivis Carrington RN - 02/14/2022 1:39 PM EDT INSIGHT CDM TELEPHONIC OUTREACH Provider Action/FYI: Pt reports she is doing good, no questions, concerns, needs at this time. Contact made with patient: Yes Patient identified by name and . Discussed care with patient It s nice talking to you again. As a reminder, this is our bi-weekly check-in where I will be asking you questions about your health. This will only take a few minutes of your time. Is this a good time? Yes Symptoms What Chronic Disease(s) does the patient have: CHF, CKD and COPD Do you check your blood pressures at home? No Do you have new or worse shortness of breath with activity? No Do you have new or worsening trouble breathing while lying flat? No Do you have new or worsening swelling of legs, feet or ankles? No Do you feel like you are dehydrated for any reason, including not being able to eat or drink normally, or having less urine/much darker urine than normal for you? No Do you check your daily weight at home? No and Do you have new or worsening cough? No Do you have new or worsening wheezing? No Do you need to use your rescue (Albuterol) inhaler or nebulizer more often than normal? No Are you having any other symptoms that your PCP needs to know about? No Symptom Escalation The patient required an escalation for symptom(s)? No Medications Do you have any questions about taking your medication or which medications you should be on? No Do you need any medication refills at this time, including any of the medications you might take only when needed? No Social We would like to make sure you have what you need so that your basic needs are met- including your personal safety, food, housing and medications? Would you like to speak with a social work seam steamer to help give you support for any of these needs? No It can be normal to feel anxious or down during a time like this. Would you like to talk to a mental health professional about how you have been feeling? No Closing Thank you for taking the time to talk with me today. We want to work with you to ensure that we arekeeping your medical condition(s) well-controlled and to keep you healthy and out of the doctor's office or hospital. It s also not too late for me to sign you up for automated weekly questionnaires through [employer]. This is an easy way for us to stay connected each week. Are you interested? No, I understand. We can always sign you up in the future if you change your mind. Just as a reminder, will continue to call you every other week to check in on your health. Our calls should take 10-15 minutes or less. Remember, if you have concerns in between our calls, please call your PCP's office right away. Thank you. Enter next patient outreach date for two weeks on the same day of the week as today in the Track PtOutreach and End outreach. documented in this encounterWhite Hospital07-13-2022 Miscellaneous Notes* Telephone Encounter - Kolby Kim MD - 02/08/2022 12:11 PM EDT bp did drop to good levels on recheck. Continue current meds. * Telephone Encounter - Maribel Diaz LPN - 02/08/2022 11:38 AM EDT Manual Readin/75 Pulse: 73 BP Stanley average: 140/72 P: 68 Repeat BP Check: 155/70 P74 #1 143/69 P66 #2 136/73 P67 #3 145/73 P67 #4 127/77 P65 #5 131/69 P69 #6 Reason for blood pressure check - Last BP elevated Patient is: Taking medication as prescribed Yes Took medication today Yes If no, date medication last taken N/A Experiencing side effects No BP continued to be elevated at nurse visit 01/09/22. No BP medication changes were made at that time. Taking all medications as prescribed. Denies any chest pain; however she did have an episode whileat dentist last week. She was laying back in chair for exam and felt a burning sensation across chest, toward shoulders, and down to abd. She is not sure of what may have caused it; does still note some discomfort after eating. Sensation dissipated about 1 day later. No unusual shortness of breath,dizziness, or headaches. Drinks decaf. No personal history of tobacco use; no current exposure. Alert and oriented. Pt has been identified by name and birthdate: Yes Allergies reviewed: Yes Latex allergy: no. Medication - prescribed and OTC reviewed and updated: Yes Do you need any prescription refills prior to your next visit: No Health Maintenance: Reviewed and not up to date and provider notified Patient advised that she would be contacted after review by PCP. Maribel Diaz LPN documented in this encounterWhite Hospital07-13-2022 History of Present illness Narrative* Maribel Diaz LPN - 02/08/2022 11:32 AM EDT Manual Readin/75 Pulse: 73 BP Stanley average: 140/72 P: 68 Repeat BP Check: 155/70 P74 #1 143/69 P66 #2 136/73 P67 #3 145/73 P67 #4 127/77 P65 #5 131/69 P69 #6 Reason for blood pressure check - Last BP elevated Patient is: Taking medication as prescribed Yes Took medication today Yes If no, date medication last taken N/A Experiencing side effects No BP continued to be elevated at nurse visit 01/09/22. No BP medication changes were made at that time. Taking all medications as prescribed. Denies any chest pain; however she did have an episode whileat dentist last week. She was laying back in chair for exam and felt a burning sensation across chest, toward shoulders, and down to abd. She is not sure of what may have caused it; does still note some discomfort after eating. Sensation dissipated about 1 day later. No unusual shortness of breath,dizziness, or headaches. Drinks decaf. No personal history of tobacco use; no current exposure. Alert and oriented. Pt has been identified by name and birthdate: Yes Allergies reviewed: Yes Latex allergy: no. Medication - prescribed and OTC reviewed and updated: Yes Do you need any prescription refills prior to your next visit: No Health Maintenance: Reviewed and not up to date and provider notified Patient advised that she would be contacted after review by PCP. Maribel Diaz LPN documented in this encounterWhite Hospital07-05-2022 History of Present illness Narrative* Kolby Kim MD - 01/31/2022 3:18 PM EDT agree * Tia Mock RN - 01/31/2022 3:09 PM EDT patient had inr completed at [facility] patients inr is 2.8 (patients inr range is 2.5-3.5) patient is currently taking 2.5mg Mon,Wed,Fri and 4.5mg all other days patients last dose change was on 01/24/22 due to a high level of 3.8 (dose at that time was 2.5mg Mon,Wed and 4.5mg all other days) patient has had no changes in medication except for coumadin and no missed doses and no change in diet Advised patient to continue on the same dose(s) and that they would only be contacted regarding dosage and follow up instructions after review with provider, if a change is needed. Written instructions given and patient verbalized understanding. Presently scheduled in 2 weeks (02/16/22) for follow up INR since this is the first normal reading since dose change documented in this encounterWhite Hospital07-05-2022 History of Present illness Narrative* Ivis Carrington RN - 01/31/2022 9:53 AM EDT INSIGHT [facility] TELEPHONIC OUTREACH Provider Action/FYI: Patient reports she is doing good, seen in ED 01/19/22, states I did not feel like myself, all testing was negative. Patient states she is slowly starting to feel like her self again. Patient had no questions, concerns, needs at this time. Contact made with patient: Yes Patient identified by name and . Discussed care with patient It s nice talking to you again. As a reminder, this is our bi-weekly check-in where I will be asking you questions about your health. This will only take a few minutes of your time. Is this a good time? Yes Symptoms What Chronic Disease(s) does the patient have: CHF, CKD and COPD Do you check your blood pressures at home? No Do you have new or worse shortness of breath with activity? No Do you have new or worsening trouble breathing while lying flat? No Do you have new or worsening swelling of legs, feet or ankles? No Do you feel like you are dehydrated for any reason, including not being able to eat or drink normally, or having less urine/much darker urine than normal for you? No Do you check your daily weight at home? No and Do you have new or worsening cough? No Do you have new or worsening wheezing? No Do you need to use your rescue (Albuterol) inhaler or nebulizer more often than normal? No Are you having any other symptoms that your PCP needs to know about? No Symptom Escalation The patient required an escalation for symptom(s)? No Medications Do you have any questions about taking your medication or which medications you should be on? No Do you need any medication refills at this time, including any of the medications you might take only when needed? No Social We would like to make sure you have what you need so that your basic needs are met- including your personal safety, food, housing and medications? Would you like to speak with a social work seam steamer to help give you support for any of these needs? No It can be normal to feel anxious or down during a time like this. Would you like to talk to a mental health professional about how you have been feeling? No Closing Thank you for taking the time to talk with me today. We want to work with you to ensure that we arekeeping your medical condition(s) well-controlled and to keep you healthy and out of the doctor's office or hospital. It s also not too late for me to sign you up for automated weekly questionnaires through [employer]. This is an easy way for us to stay connected each week. Are you interested? No, I understand. We can always sign you up in the future if you change your mind. Just as a reminder, will continue to call you every other week to check in on your health. Our calls should take 10-15 minutes or less. Remember, if you have concerns in between our calls, please call your PCP's office right away. Thank you. Enter next patient outreach date for two weeks on the same day of the week as today in the Track PtOutreach and End outreach. documented in this encounterWhite Hospital06-28-2022 History of Present illness Narrative* Jeet Morgan LPN - 01/24/2022 5:00 PM EDT Pt notified of provider instructions. She verbalized understanding. Jeet Morgan LPN * Kolby Kim MD - 01/24/2022 1:12 PM EDT Hold one day. Change her to 2.5 MWF, 4.5 all other days. Recheck one week * Tia Mock RN - 01/24/2022 12:33 PM EDT patient had inr completed at [facility] patients inr is 3.8 (patients inr range is 2.5-3.5) patient is currently taking 2.5mg Mon Wed and 4.5mg all other days patients last dose change was on 01/12/22 due to a low level of 2.1 (dose at that time was 2.5mg Mon,Wed,Fri and 4.5mg all other days) patient has had no changes in medication except for coumadin and no missed doses and no change in diet Advised patient that they would be contacted regarding medication dose and when to follow up after information is reviewed by provider. After provider review please contact the patient with information and schedule follow up appointment with coumadin clinic. ok to leave a detailed message if no answer FYI- patient has been scheduled for a 1 week follow up inr on 01/31/22 documented in this encounterWhite Hospital06-21-2022 History of Present illness Narrative* Ivis Carrington, CARLOS - 01/17/2022 11:44 AM EDT INSIGHT CDM TELEPHONIC OUTREACH Provider Action/FYI: Pt reports she is doing good, no questions, concerns, needs at this time. Contact made with patient: Yes Patient identified by name and . Discussed care with patient It s nice talking to you again. As a reminder, this is our bi-weekly check-in where I will be asking you questions about your health. This will only take a few minutes of your time. Is this a good time? Yes Symptoms What Chronic Disease(s) does the patient have: CHF, CKD and COPD Do you check your blood pressures at home? No Do you have new or worse shortness of breath with activity? No Do you have new or worsening trouble breathing while lying flat? No Do you have new or worsening swelling of legs, feet or ankles? No Do you feel like you are dehydrated for any reason, including not being able to eat or drink normally, or having less urine/much darker urine than normal for you? No Do you check your daily weight at home? No and Do you have new or worsening cough? No Do you have new or worsening wheezing? No Do you need to use your rescue (Albuterol) inhaler or nebulizer more often than normal? No Are you having any other symptoms that your PCP needs to know about? No Symptom Escalation The patient required an escalation for symptom(s)? No Medications Do you have any questions about taking your medication or which medications you should be on? No Do you need any medication refills at this time, including any of the medications you might take only when needed? No Social We would like to make sure you have what you need so that your basic needs are met- including your personal safety, food, housing and medications? Would you like to speak with a social work seam steamer to help give you support for any of these needs? No It can be normal to feel anxious or down during a time like this. Would you like to talk to a mental health professional about how you have been feeling? No Closing Thank you for taking the time to talk with me today. We want to work with you to ensure that we arekeeping your medical condition(s) well-controlled and to keep you healthy and out of the doctor's office or hospital. It s also not too late for me to sign you up for automated weekly questionnaires through [employer]. This is an easy way for us to stay connected each week. Are you interested? No, I understand. We can always sign you up in the future if you change your mind. Just as a reminder, will continue to call you every other week to check in on your health. Our calls should take 10-15 minutes or less. Remember, if you have concerns in between our calls, please call your PCP's office right away. Thank you. Enter next patient outreach date for two weeks on the same day of the week as today in the Track PtOutreach and End outreach. documented in this encounterWhite Hospital06-16-2022 History of Present illness Narrative* Keily Mcpherson Ma - 01/12/2022 3:08 PM EDT notified of dosage change * Kolby Kim MD - 01/12/2022 1:00 PM EDT 2.5 on MW, 4.5 a day rest of the week. Recheck one week * Tia Mock RN - 01/12/2022 12:54 PM EDT patient had inr completed at [facility] patients inr is 2.1 (patients inr range is 2.5-3.5) patient is currently taking 2.5mg Mon,Wed,Fri and 4.5mg all other days patients last dose change was on 12/08/21 due to a low level of 2.3 (dose at that time was 4.5mg Tues,Thurs,Sun and 2.5mg all other days) patient has had no changes in medication and no missed doses and no change in diet Advised patient that they would be contacted regarding medication dose and when to follow up after information is reviewed by provider. After provider review please contact the patient with information and schedule follow up appointment with coumadin clinic. FYI- patient has been scheduled for a 2 week follow up inr on 01/24/22 documented in this encounterWhite Hospital06-13-2022 Miscellaneous Notes* Telephone Encounter - Zaria Sauceda Ma - 01/09/2022 2:32 PM EDT Pt called and notified of PCP's recommendation, verbalized understanding. Scheduled for 1 month BP check with Nurse on 02/08. Zaria Sauceda Ma * Telephone Encounter - Kolby Kim MD - 01/09/2022 1:00 PM EDT bp did come down with last being ok. Given that and issues, lets hold on making changes and recheck bp in one month * Telephone Encounter - Maribel Diaz LPN - 01/09/2022 12:33 PM EDT Manual Readin/76 Pulse: 68 BP Stanley average: 146/72 P: 75 Repeat BP Check: 147/75 P67 #1 152/63 P91 #2 151/69 P67 #3 149/73 P67 #4 144/76 P82 #5 130/75 P75 #6 Reason for blood pressure check - Last BP elevated Patient is: Taking medication as prescribed Yes Took medication today Yes If no, date medication last taken N/A Experiencing side effects No BP was elevated at last appt 12/07/21. No BP medication changes were made at that time. Taking all medications as prescribed. Denies any chest pain. Does have headaches almost daily; will treat with Tylenol. Also states that she has been having problems with feeling dizzy and short of breath after showering. Drinks decaf. No personal history of tobacco use; no current exposure. Alert and oriented. Pt has been identified by name and birthdate: Yes Allergies reviewed: Yes Latex allergy: no. Medication - prescribed and OTC reviewed and updated: Yes Do you need any prescription refills prior to your next visit: No Health Maintenance: Reviewed and not up to date and provider notified Patient advised that she would be contacted after review by PCP. Maribel Diaz LPN documented in this encounterWhite Hospital06-13-2022 History of Present illness Narrative* Maribel Diaz LPN - 01/09/2022 12:28 PM EDT Manual Readin/76 Pulse: 68 BP Stanley average: 146/72 P: 75 Repeat BP Check: 147/75 P67 #1 152/63 P91 #2 151/69 P67 #3 149/73 P67 #4 144/76 P82 #5 130/75 P75 #6 Reason for blood pressure check - Last BP elevated Patient is: Taking medication as prescribed Yes Took medication today Yes If no, date medication last taken N/A Experiencing side effects No BP was elevated at last appt 12/07/21. No BP medication changes were made at that time. Taking all medications as prescribed. Denies any chest pain. Does have headaches almost daily; will treat with Tylenol. Also states that she has been having problems with feeling dizzy and short of breath after showering. Drinks decaf. No personal history of tobacco use; no current exposure. Alert and oriented. Pt has been identified by name and birthdate: Yes Allergies reviewed: Yes Latex allergy: no. Medication - prescribed and OTC reviewed and updated: Yes Do you need any prescription refills prior to your next visit: No Health Maintenance: Reviewed and not up to date and provider notified Patient advised that she would be contacted after review by PCP. Maribel Diaz LPN documented in this encounterWhite Hospital06-06-2022 History of Present illness Narrative* Ivis Carrington, CARLOS - 01/02/2022 11:06 AM EDT INSIGHT CDM TELEPHONIC OUTREACH Provider Action/FYI: Pt reports she is doing good, was seen at [facility] ED 12/28/21, diagnosed with UTI, prescribed Cephalexin. Pt states she is feeling better, has been increasing fluids. Pt had no questions, concerns, needs at this time. Contact made with patient: Yes Patient identified by name and . Discussed care with patient It s nice talking to you again. As a reminder, this is our bi-weekly check-in where I will be asking you questions about your health. This will only take a few minutes of your time. Is this a good time? Yes Symptoms What Chronic Disease(s) does the patient have: CHF, CKD and COPD Do you check your blood pressures at home? No Do you have new or worse shortness of breath with activity? No Do you have new or worsening trouble breathing while lying flat? No Do you have new or worsening swelling of legs, feet or ankles? No Do you feel like you are dehydrated for any reason, including not being able to eat or drink normally, or having less urine/much darker urine than normal for you? No Do you check your daily weight at home? No and Do you have new or worsening cough? No Do you have new or worsening wheezing? No Do you need to use your rescue (Albuterol) inhaler or nebulizer more often than normal? No Are you having any other symptoms that your PCP needs to know about? No Symptom Escalation The patient required an escalation for symptom(s)? No Medications Do you have any questions about taking your medication or which medications you should be on? No Do you need any medication refills at this time, including any of the medications you might take only when needed? No Social We would like to make sure you have what you need so that your basic needs are met- including your personal safety, food, housing and medications? Would you like to speak with a social work seam steamer to help give you support for any of these needs? No It can be normal to feel anxious or down during a time like this. Would you like to talk to a mental health professional about how you have been feeling? No Closing Thank you for taking the time to talk with me today. We want to work with you to ensure that we arekeeping your medical condition(s) well-controlled and to keep you healthy and out of the doctor's office or hospital. It s also not too late for me to sign you up for automated weekly questionnaires through [employer]. This is an easy way for us to stay connected each week. Are you interested? No, I understand. We can always sign you up in the future if you change your mind. Just as a reminder, will continue to call you every other week to check in on your health. Our calls should take 10-15 minutes or less. Remember, if you have concerns in between our calls, please call your PCP's office right away. Thank you. Enter next patient outreach date for two weeks on the same day of the week as today in the Track PtOutreach and End outreach. documented in this encounterWhite Hospital06-02-2022 Miscellaneous Notes* Telephone Encounter - Earlene Perez LPN - 12/29/2021 10:23 AM EDT From has been mailed. * Telephone Encounter - Kolby Kim MD - 12/28/2021 5:36 PM EDT done * Telephone Encounter - Earlene Perez LPN - 12/28/2021 11:51 AM EDT Type of form: Restricted Driving Review Form received via mail When form is completed, Mail form to envelope provided Form has been forwarded to Physician Desk: Dr. Julio Perez LPN documented in this encounterWhite Hospital05-20-2022 History of Present illness Narrative* Ivis Carrington RN - 12/16/2021 9:16 AM EDT INSIGHT CDM TELEPHONIC OUTREACH Provider Action/FYI: Pt reports good is doing good, no questions, concerns, needs at this time. Contact made with patient: Yes Patient identified by name and . Discussed care with patient It s nice talking to you again. As a reminder, this is our bi-weekly check-in where I will be asking you questions about your health. This will only take a few minutes of your time. Is this a good time? Yes Symptoms What Chronic Disease(s) does the patient have: CHF, CKD and COPD Do you check your blood pressures at home? No Do you have new or worse shortness of breath with activity? No Do you have new or worsening trouble breathing while lying flat? No Do you have new or worsening swelling of legs, feet or ankles? No Do you feel like you are dehydrated for any reason, including not being able to eat or drink normally, or having less urine/much darker urine than normal for you? No Do you check your daily weight at home? No and Do you have new or worsening cough? No Do you have new or worsening wheezing? No Do you need to use your rescue (Albuterol) inhaler or nebulizer more often than normal? No Are you having any other symptoms that your PCP needs to know about? No Symptom Escalation The patient required an escalation for symptom(s)? No Medications Do you have any questions about taking your medication or which medications you should be on? No Do you need any medication refills at this time, including any of the medications you might take only when needed? No Social We would like to make sure you have what you need so that your basic needs are met- including your personal safety, food, housing and medications? Would you like to speak with a social work seam steamer to help give you support for any of these needs? No It can be normal to feel anxious or down during a time like this. Would you like to talk to a mental health professional about how you have been feeling? No Closing Thank you for taking the time to talk with me today. We want to work with you to ensure that we arekeeping your medical condition(s) well-controlled and to keep you healthy and out of the doctor's office or hospital. It s also not too late for me to sign you up for automated weekly questionnaires through [employer]. This is an easy way for us to stay connected each week. Are you interested? No, I understand. We can always sign you up in the future if you change your mind. Just as a reminder, will continue to call you every other week to check in on your health. Our calls should take 10-15 minutes or less. Remember, if you have concerns in between our calls, please call your PCP's office right away. Thank you. Enter next patient outreach date for two weeks on the same day of the week as today in the Track PtOutreach and End outreach. documented in this encounterWhite Hospital05-19-2022 History of Present illness Narrative* Ivis Carrington RN - 12/15/2021 2:47 PM EDT INSIGHT CDM TELEPHONIC OUTREACH Provider Action/FYI: Contact made with patient: No - Left message Masha my name is Ivis Carrington RN your Industrial Technology Education Teacher from the [facility] I am calling today for your bi-weekly check in. I am sorry I missed your call. I will reach out to you again tomorrow. (if the third call I will reach out to you again next week) Enter next patient outreach date for the following day using the Track Pt Outreach. End outreach. documented in this encounterWhite Hospital05-19-2022 History of Present illness Narrative* Kolby Kim MD - 12/15/2021 11:18 AM EDT agree * Tia Mock RN - 12/15/2021 10:58 AM EDT patient had inr completed at [facility] patients inr is 3.2 (patients inr range is 2.0-3.0) patient is currently taking 2.5mg Mon,Wed,Fri and 4.5mg all other days patients last dose change was on 12/08/21 due to a low level of 2.3 (dose at that time was 4.5mg Tues,Thurs,Sun and 2.5mg all other days) patient has had no changes in medication and no missed doses and no change in diet Advised patient to continue on the same dose(s) and that they would only be contacted regarding dosage and follow up instructions after review with provider, if a change is needed. Written instructions given and patient verbalized understanding. Presently scheduled in 2 weeks (12/29/21) for follow up INR. documented in this encounterWhite Hospital05-12-2022 History of Present illness Narrative* Keily Mcpherson Ma - 12/08/2021 1:22 PM EDT Patient instructed of dosage with teach back method. Verbalizes understanding. * Kolby Kim MD - 12/08/2021 12:49 PM EDT Change to 4.5 T, TH, Sat, 2.5 a day rest of the week Recheck one week * Tia Mock RN - 12/08/2021 12:21 PM EDT patient had inr completed at [facility] patients inr is 2.3 (patients inr range is 2.5-3.5) patient is currently taking 4.5mg Tues,Thurs,Sun and 2.5mg all other days patients last dose change was on 12/01/21 due to a high level of 4.0 (dose at that time was 2.5mg Mon,Wed,Fri and 4.5mg all other days) patient has had no changes in medication except for coumadin and patient has instructed to hold onedose then restart coumadin last week and no change in diet Advised patient that they would be contacted regarding medication dose and when to follow up after information is reviewed by provider. After provider review please contact the patient with information and schedule follow up appointment with coumadin clinic. FYI- patient has been scheduled for a 1 week follow up inr on 12/15/21 documented in this encounterWhite Hospital05-11-2022 History of Present illness Narrative* Kolby Kim MD - 12/07/2021 2:32 PM EDT Patient presents with: F/U 3 Month HPI: Patient presents today for office visit for follow up from last ov on 10/19 Copied and pasted from previous visit.: See below regarding mechanical fall. Seems to be improving. No new changes. No new nausea or vomiting. No new headaches or neuro issues. Also seen at [place] ER. Was discharge home with follow up with Dr. Johnson. They did a respiratory culture. Still with some drainage and cough. Not more short of breath. No new chest pain. Seeing psych. They are adjusting medications. Had some confusion after taking first medication they gave her, risperidone. They then told her they had nothing else to offer her. Now has a new puppy, a michelle gill, that seems to be making her feel much better. Emotionally feels we are doing oi. Seen recently at [facility] ER on 10/03: Partial record are available on clini sync but not all. History of Present Illness Chief Complaint: Chest Pain Informant: patient and family Narrative Narrative: Patient here with son reporting fevers since this morning. Had T-max 100.1 this evening. Status post Tylenol. Chronic cough. Chronic chest pains. No urinary symptoms. No recent vomiting or diarrhea. Reports mild myalgias. Mild headaches. COVID vaccinated with the booster if no infections in the past. Also vaccinated for influenza this year. Denies sick contacts. Patient is on warfarin history of paroxysmal atrial fibrillation. Reports had valvular replacement in the past x2. Chronic diastolic dysfunction. See ER noted from 09/18/21: Patient is a 75-year-old female history of COPD, CHF, aortic valve replacement on warfarin presented to the emergency department by EMS as trauma level 2 given concerns of fall on warfarin. It was reported that OSH did CT H showing potential intracranial hemorrhage however no images were obtained. Patient was not reversed from warfarin at that time and was transferred here for further evaluation.Patient states at this time she has no pain and overall feels well. States that legs gave out and she fell hitting the back of her head. No loss of consciousness. States she is taking her warfarin. No focal weakness or numbness. No vision changes. No shortness of breath, chest pain. Seen at ER and had ct of brain, chest, abd, and spine from neck to lumbar area. No bleed seen on final films so INTERIM HX: Still is sore at times when she touches the area after falling. No further falls. She is not using a cane or walker but wonders if she would benefit from therapy. She has some swelling today in her feet. The temperature is 30 degrees higher than last week which might contribute. No worsening shortness of breath or chest pain. No calf soreness. No redness or warmth. Has been eating more salt. Still seeing Pulmonary and Dr. Mckay. No palpitations. Moods are better. oarrs done. Memory is still an issue She was previously seen by neurology for suspected Lewy Body dementia. She has not followed up withthem. She is not taking aricept. Did see psych as well. No longer seeing her. Emotionally is doing well. Have followed vitamin d recently. MEDICATIONS: Current Outpatient Medications Medication Sig warfarin (COUMADIN) 3 mg tablet 2.5 mg MWFSat and 4.5 mg all other days or as directed warfarin (COUMADIN) 2.5 mg tablet 2.5 mg MWFSat and 4.5 mg all other days or as directed furosemide (LASIX) 40 mg tablet Take 1 tablet by mouth once daily. montelukast (SINGULAIR) 10 mg tablet Take 1 tablet by mouth daily at bedtime. ferrous sulfate 325 mg (65 mg iron) tablet Take 1 tablet by mouth twice daily with meals. potassium chloride ER (K-DUR, KLOR-CON) 20 mEq tablet Take 1 tablet by mouth once daily. lidocaine viscous (LIDOCAINE VISCOUS) 2 % solution Take 15 mL by mouth every 3 hours as needed for pain. albuterol (PROVENTIL) 2.5 mg /3 mL (0.083 %) nebulizer solution Use 3 mL via nebulizer every 6 hours as needed for wheezing/shortness of breath. DX: J45.40 Hx of moderate persistent Asthma ergocalciferol 50,000 unit capsule (VITAMIN D2, DRISDOL) Take 1 capsule by mouth one time a week. buPROPion XL (WELLBUTRIN XL) 150 mg 24 hr tablet Take 1 tablet by mouth once daily. warfarin (COUMADIN) 2.5 mg tablet 2.5 mg Mon/ Fri, 4.5 mg all other days or as directed famotidine (PEPCID) 20 mg tablet Take 1 tablet by mouth at bedtime as needed. pantoprazole DR (PROTONIX) 40 mg tablet Take 1 tablet by mouth twice daily. PARoxetine (PAXIL) 20 mg tablet Take 0.5 tablets by mouth once daily. amiodarone (PACERONE) 200 mg tablet Take 100 mg by mouth once daily. albuterol HFA (PROAIR HFA) 90 mcg/actuation inhaler Inhale 2 Puffs as instructed every 4 hours as needed. budesonide-formoterol (SYMBICORT) 160-4.5 mcg/actuation inhaler Inhale 2 Puffs as instructed twice daily. acetaminophen (TYLENOL EXTRA STRENGTH) 500 mg tablet Take 1 tablet by mouth every 4 hours as neededfor Pain. RANGE FREQ? Nebulizer NEBULIZER FOR HOME USE and necessary supplies. DX: Hypoxemia, Pneumonia and Hemoptisis triamcinolone acetonide (NASACORT) 55 mcg nasal inhaler Use 1 [place] in the nose once daily. pravastatin (PRAVACHOL) 80 mg tablet TAKE 1 TABLET BY MOUTH ONCE DAILY aspirin 81 mg chewable tablet Take 2 tablets by mouth once daily. metoprolol succinate XL, long acting, 50 mg 24 hr tablet Take 1 tablet by mouth once daily. ezetimibe(ZETIA 10 MG TAB) Take one(1) tablet daily. amoxicillin-clavulanic acid (AUGMENTIN) 875-125 mg per tablet Take 1 tablet by mouth twice daily. (Patient not taking: Reported on 12/07/2021 ) Current Facility-Administered Medications Medication Dose Route Frequency bupivacaine 7.5 mg injection (SENSORCAINE) 3 mL OTHER As Directed ALLERGIES: ALLERGIES Allergen Reactions Adhesive Rash Blistering at site of application. Dextromethorphan Other: See Comments, Mental Status Change Sulfa (Sulfonamide * Other: See Comments Renal dysfunction. Childhood reaction. Generalized swelling Celebrex [Celecoxib] Other: See Comments Migraine headache. Aricept [Donepezil] Myalgia muscle pain and difficulty walking Compazine [Prochlor* Other: See Comments low BP Crestor [Rosuvastat* GI Upset Gabapentin Intolerance Confusion, when coupled with norco Lipitor [Atorvastat* Myalgia Lisinopril Cough No Latex Allergy [O* Oxycodone Itching Penicillins Other: See Comments Heart palpitations. No rash or itch. Can take cephalosporins Prozac [Fluoxetine * Other: See Comments hallucinating Ultram [Tramadol Hc* Itching Codeine Itching PAST MEDICAL HISTORY Diagnosis Date Adjustment disorder with depressed mood Aortic valve disorder Dr. Mckay Carotid stenosis Compression deformity of vertebra Congestive heart failure (HCC) COPD (chronic obstructive pulmonary disease) ([facility]) 01/03/2013 Esophageal reflux Normal EGD 12/2012 H/O aortic valve replacement INR should be 2.5 to 3.5 High blood pressure Hyperlipidemia Impaired glucose tolerance Intrinsic asthma 06/[address] done per Dr. Mckay Migraine Myalgia and myositis, unspecified Other forms of migraine Thyroid nodule Unspecified essential hypertension PAST SURGICAL HISTORY Procedure Laterality Date ANTERIOR COLPORRAPHY RPR CYSTOCELE W/CYSTO 2001 w/ uterosacral suspension CARDIOVERSION [facility]- Spring 2019 CLOSURE SEMILUNAR VALVE AORTIC/PULM SUTURE/PATCH 2004 had aortic valve replacement w/ bovine valve COLONOSCOPY FLX DX W/COLLJ SPEC WHEN PFRMD 01/15/13 Colonoscopy COLSC FLX W/RMVL OF TUMOR POLYP LESION SNARE TQ 05/07/2017 Colonoscopy - cecal inflammatory polyps. Repeat in 5 yrs DISPLACEMENT THERAPY PROETZ TYPE x3 ESOPHAGOGASTRODUODENOSCOPY TRANSORAL DIAGNOSTIC 01/15/13 EGD ESOPHAGOGASTRODUODENOSCOPY TRANSORAL DIAGNOSTIC 05/07/2017 EGD FOOT RIGHT OP SURGERY 05/05/2009 HEMORRHOIDECTOMY XTRNL 2/> COLUMN/GROUP LAPS VAGINAL HYSTERECTOMY UTERUS 250 GM/< 2002/2001 usvvs, enterocele repair,apr,lsc pvdr,cysto,spt LOW BACK DISK SURGERY 06/2011 OOPHORECTOMY PARTIAL/TOTAL UNI/BI PAST SURGICAL HISTORY OF 05/10 Thyroid [id number]-hcyhvdon PAST SURGICAL HISTORY OF aug and september 2011 cataract removal PAST SURGICAL HISTORY OF 06/2012 4 sinus surgeries Thea Little PAST SURGICAL HISTORY OF 2013 aortic valve with On-X valve PERCUTANEOUS AORTIC VALVE REPLACEMENT 09/2013 POSTERIOR COLPORRHAPHY, REPAIR RECTOCELE 2001 SINUS SURGERY PROC UNLISTED 5 times TONSILLECTOMY PRIMARY/SECONDARY <AGE 12 TOTAL ABDOMINAL HYSTERECT W/WO RMVL TUBE OVARY age 31 FAMILY HISTORY Problem Relation Age of Onset Heart Mother Heart Father Diabetes Brother Hypertension Brother Lipids Brother Lipids Daughter other (Depression) Daughter GI Son Lipids Son Diabetes Sister Lipids Sister Social History Tobacco Use Smoking status: Never Smoker Smokeless tobacco: Never Used Tobacco comment: Father smoked in childhood home. Spouse non-smoker. Vaping Use Vaping Use: Never used Substance Use Topics Alcohol use: No Drug use: No Reviewed current medications, allergies, past medical history, surgical history, family history andsocial history today. REVIEW OF SYSTEMS All other reviewed and negative other than HPI. HEALTH MAINTENANCE: Reviewed health maintenance issues today and recommended the following in detail. BP CONTROLLED (<130/80) Never done COVID-19 VACCINE(4 - Booster for Pfizer series) due on 10/06/2021 VITALS: BP 150/78 Pulse 64 Resp 20 Wt 64.6 kg (142 lb 6.4 oz) SpO2 94% BMI 27.59 kg/m Last 4 Encounter Wt Readings: Date: Wt: 12/07/2021 64.6 kg (142 lb 6.4 oz) 10/19/2021 65.3 kg (144 lb) 09/16/2021 66.2 kg (146 lb) 07/20/2021 68.5 kg (151 lb) PHYSICAL EXAMINATION: General appearance: Well appearing, alert, in no acute distress, well-hydrated, well nourished. Skin: Skin color, texture, turgor normal, no suspicious rashes or lesions Head: Normocephalic, no masses, lesions, tenderness or abnormalities Lungs: moving air well. Few scattered rhonchi which is not unusual on Pat. No definite rales. Heart: RRR without murmur, gallop, or rubs. No ectopy Abdomen: Normal abdominal exam, Abdomen soft, non-tender. Bowel sounds normal. No masses, organomegaly Extremities: trace ankle edema. No calf tenderness or redness or warmth. Musculoskeletal: No joint swelling, deformity, or tenderness Peripheral pulses: Normal Neuro: Negative. ASSESSMENT/PLAN: 1. Chronic obstructive pulmonary disease, unspecified COPD type (HCC) - ICD9: 496, ICD10: J44.9 (primary diagnosis) - see pulmonary regularly 2. Lewy body dementia without behavioral disturbance (HCC) - ICD9: 331.82, 294.10, ICD10: G31.83, F02.80 - recommended follow up with neurology - CONSULT TO NEUROLOGY 3. Hyperlipidemia LDL goal <100 - ICD9: 272.4, ICD10: E78.5 - good control - Encouraged following a low fat, low cholesterol diet. 4. History of aortic valve replacement - ICD9: V43.3, ICD10: Z95.2 - per cardiology 5. Heart failure, diastolic, chronic (HCC) - ICD9: 428.32, ICD10: I50.32 - appears stable but check labs given slight edema. Red flags for re-assessment reviewed with patient in detail.- call if any weight gain, increased edema or shortness of breath. Limit salt - NT PRO BNP - CBC + DIFF - BASIC METABOLIC PNL 6. Paroxysmal atrial fibrillation (HCC) - ICD9: 427.31, ICD10: I48.0 - stable 7. Aortic valve stenosis with insufficiency, etiology of cardiac valve disease unspecified - ICD9: 424.1, ICD10: I35.2 - stable. 8. Stage 3 chronic kidney disease, unspecified whether stage 3a or 3b CKD (HCC) - ICD9: 585.3, ICD10: N18.30 - will follow 9. Nontoxic uninodular goiter - ICD9: 241.0, ICD10: E04.1 - does not require further follow up. 10. Impaired glucose tolerance - ICD9: 790.22, ICD10: R73.02 - labs were stable. 11. Angiomyolipoma of left kidney - ICD9: 223.0, ICD10: D17.71 - unchanged over 5 years. Kolby Kim RTO in three months and prn. documented in this encounterWhite Hospital05-05-2022 History of Present illness Narrative* Kiana Dominguez LPN - 12/01/2021 1:01 PM EDT Patient returned call and went over coumadin instructions from Dr Kim, Hold one day, then 2.5 mg M-W-,Sunday and 4.5 mg other days and recheck INR in one week with understanding. * Ivis Valdivia Ma - 12/01/2021 12:29 PM EDT Message left for pt to call back. Tracker and med list updated. Ivis Valdivia Ma * Kolby Kim MD - 12/01/2021 11:54 AM EDT Hold x one day. Then 2.5 on MWFSAT, 4.5 a day rest of the week. Recheck one week * Tia Mock RN - 12/01/2021 11:44 AM EDT patient had inr completed at [facility] patients inr is 4.0 (patients inr range is 2.5-3.5) patient is currently taking 2.5mg Mon,Wed,Fri and 4.5mg all other days patients last dose change was on 09/22/21 due to a high level of 4.6 (dose at that time was 2.5mg Mon,Fri and 4.5mg all other days) patient has had no changes in medication and no missed doses and no change in diet FYI - patient states that she did not feel well last week and really didn't eat much of anything for 2 days Patient has been instructed to hold coumadin until contacted Advised patient that they would be contacted regarding medication dose and when to follow up after information is reviewed by provider. After provider review please contact the patient with information and schedule follow up appointment with coumadin clinic. FYI- patient has been scheduled for a 1 week follow up inr on 12/08/21 documented in this encounterWhite Hospital05-05-2022 History of Present illness Narrative* Ivis Carrington RN - 12/01/2021 9:46 AM EDT [facility] TELEPHONIC OUTREACH Provider Action/FYI: Pt reports she is doing good, was seen by cardiology this past Sunday, states appt went well. Pt had no questions, concerns, needs at this time. Contact made with patient: Yes Patient identified by name and . Discussed care with patient It s nice talking to you again. As a reminder, this is our bi-weekly check-in where I will be asking you questions about your health. This will only take a few minutes of your time. Is this a good time? Yes Symptoms What Chronic Disease(s) does the patient have: CHF, CKD and COPD Do you check your blood pressures at home? No Do you have new or worse shortness of breath with activity? No Do you have new or worsening trouble breathing while lying flat? No Do you have new or worsening swelling of legs, feet or ankles? No Do you feel like you are dehydrated for any reason, including not being able to eat or drink normally, or having less urine/much darker urine than normal for you? No Do you check your daily weight at home? No and Do you have new or worsening cough? No Do you have new or worsening wheezing? No Do you need to use your rescue (Albuterol) inhaler or nebulizer more often than normal? No Are you having any other symptoms that your PCP needs to know about? No Symptom Escalation The patient required an escalation for symptom(s)? No Medications Do you have any questions about taking your medication or which medications you should be on? No Do you need any medication refills at this time, including any of the medications you might take only when needed? No Social We would like to make sure you have what you need so that your basic needs are met- including your personal safety, food, housing and medications? Would you like to speak with a social work seam steamer to help give you support for any of these needs? No It can be normal to feel anxious or down during a time like this. Would you like to talk to a mental health professional about how you have been feeling? No Closing Thank you for taking the time to talk with me today. We want to work with you to ensure that we arekeeping your medical condition(s) well-controlled and to keep you healthy and out of the doctor's office or hospital. It s also not too late for me to sign you up for automated weekly questionnaires through [employer]. This is an easy way for us to stay connected each week. Are you interested? No, I understand. We can always sign you up in the future if you change your mind. Just as a reminder, will continue to call you every other week to check in on your health. Our calls should take 10-15 minutes or less. Remember, if you have concerns in between our calls, please call your PCP's office right away. Thank you. Enter next patient outreach date for two weeks on the same day of the week as today in the Track PtOutreach and End outreach. documented in this encounterWhite Hospital04-21-2022 History of Present illness Narrative* Dandre Ovalle MD - 11/17/2021 2:41 PM EDT I agree with the advice given; stay same and recheck in 2 weeks Dandre Ovalle MD * Tia Mock RN - 11/17/2021 1:29 PM EDT patient had inr completed at [facility] patients inr is 2.9 (patients inr range is 2.5-3.5) patient is currently taking 2.5mg Mon,Wed,Fri and 4.5mg all other days patients last dose change was on 09/22/21 due to a high level of 4.6 (dose at that time was 2.5mg Mon,Fri and 4.5mg all other days) patient has had no changes in medication and no missed doses and no change in diet Advised patient to continue on the same dose(s) and that they would only be contacted regarding dosage and follow up instructions after review with provider, if a change is needed. Written instructions given and patient verbalized understanding. Presently scheduled in 2 weeks (12/01/21 - per pt reques t) for follow up INR. documented in this encounterWhite Hospital04-21-2022 History of Present illness Narrative* Ivis Carrington RN - 11/17/2021 8:41 AM EDT [facility] TELEPHONIC OUTREACH Provider Action/FYI: Pt reports she is doing good, has been feeling better the past couple of days, has been baking. Pt asking how to tell the difference between reality and delusions. Pt states she has delusions of someone living in their attic, she knows there is no one there but most times it feels real. Pt states she has tried medications but these have made her symptoms worse. Pt has her to support her, has been to 2 therapist who told her there is nothing they can do for her. This was noted in 10/19/21 OV Encouraged patient to keep trying to find a therapist that works with her and that she is comfortable with, it may be a lot of trial and error, encouraged to not give up looking and trying. Contact made with patient: Yes Patient identified by name and . Discussed care with patient It s nice talking to you again. As a reminder, this is our bi-weekly check-in where I will be asking you questions about your health. This will only take a few minutes of your time. Is this a good time? Yes Symptoms What Chronic Disease(s) does the patient have: CHF, CKD and COPD Do you check your blood pressures at home? No Do you have new or worse shortness of breath with activity? No Do you have new or worsening trouble breathing while lying flat? No Do you have new or worsening swelling of legs, feet or ankles? No Do you feel like you are dehydrated for any reason, including not being able to eat or drink normally, or having less urine/much darker urine than normal for you? No Do you check your daily weight at home? No and Do you have new or worsening cough? No Do you have new or worsening wheezing? No Do you need to use your rescue (Albuterol) inhaler or nebulizer more often than normal? No Are you having any other symptoms that your PCP needs to know about? No Symptom Escalation The patient required an escalation for symptom(s)? No Medications Do you have any questions about taking your medication or which medications you should be on? No Do you need any medication refills at this time, including any of the medications you might take only when needed? No Social We would like to make sure you have what you need so that your basic needs are met- including your personal safety, food, housing and medications? Would you like to speak with a social work seam steamer to help give you support for any of these needs? No It can be normal to feel anxious or down during a time like this. Would you like to talk to a mental health professional about how you have been feeling? No Closing Thank you for taking the time to talk with me today. We want to work with you to ensure that we arekeeping your medical condition(s) well-controlled and to keep you healthy and out of the doctor's office or hospital. It s also not too late for me to sign you up for automated weekly questionnaires through [employer]. This is an easy way for us to stay connected each week. Are you interested? No, I understand. We can always sign you up in the future if you change your mind. Just as a reminder, will continue to call you every other week to check in on your health. Our calls should take 10-15 minutes or less. Remember, if you have concerns in between our calls, please call your PCP's office right away. Thank you. Enter next patient outreach date for two weeks on the same day of the week as today in the Track PtOutreach and End outreach. documented in this encounterWhite Hospital03-24-2022 History of Present illness Narrative* Ivis Carrington RN - 10/20/2021 9:18 AM EDT [facility] TELEPHONIC OUTREACH Provider Action/FYI: Pt reports she is doing good, states hand is much better, swelling and bruising is gone, able to put her rings back on. Pt had no questions/concerns/needs at this time. Contact made with patient: Yes Patient identified by name and . Discussed care with patient It s nice talking to you again. As a reminder, this is our bi-weekly check-in where I will be asking you questions about your health. This will only take a few minutes of your time. Is this a good time? Yes Symptoms What Chronic Disease(s) does the patient have: CHF, CKD and COPD Do you check your blood pressures at home? No Do you have new or worse shortness of breath with activity? No Do you have new or worsening trouble breathing while lying flat? No Do you have new or worsening swelling of legs, feet or ankles? No Do you feel like you are dehydrated for any reason, including not being able to eat or drink normally, or having less urine/much darker urine than normal for you? No Do you check your daily weight at home? No and Do you have new or worsening cough? No Do you have new or worsening wheezing? No Do you need to use your rescue (Albuterol) inhaler or nebulizer more often than normal? No Are you having any other symptoms that your PCP needs to know about? No Symptom Escalation The patient required an escalation for symptom(s)? No Medications Do you have any questions about taking your medication or which medications you should be on? No Do you need any medication refills at this time, including any of the medications you might take only when needed? No Social We would like to make sure you have what you need so that your basic needs are met- including your personal safety, food, housing and medications? Would you like to speak with a social work seam steamer to help give you support for any of these needs? No It can be normal to feel anxious or down during a time like this. Would you like to talk to a mental health professional about how you have been feeling? No Closing Thank you for taking the time to talk with me today. We want to work with you to ensure that we arekeeping your medical condition(s) well-controlled and to keep you healthy and out of the doctor's office or hospital. It s also not too late for me to sign you up for automated weekly questionnaires through [employer]. This is an easy way for us to stay connected each week. Are you interested? No, I understand. We can always sign you up in the future if you change your mind. Just as a reminder, will continue to call you every other week to check in on your health. Our calls should take 10-15 minutes or less. Remember, if you have concerns in between our calls, please call your PCP's office right away. Thank you. Enter next patient outreach date for two weeks on the same day of the week as today in the Track PtOutreach and End outreach. documented in this encounterWhite Hospital03-23-2022 History of Present illness Narrative* Kolby Kim MD - 10/19/2021 2:45 PM EDT Patient presents with: ED Follow-up: had fever of 100.4 was feeling better but ER called her and asked if she had seen PCPfor follow up Fall: also seen in ER and transferred to [place] for possible bleed but was ok HPI: Patient presents today for office visit for follow up. See below regarding mechanical fall. Seems to be improving. No new changes. No new nausea or vomiting. No new headaches or neuro issues. Also seen at [place] ER. Was discharge home with follow up with Dr. Johnson. They did a respiratory culture. Still with some drainage and cough. Not more short of breath. No new chest pain. Seeing psych. They are adjusting medications. Had some confusion after taking first medication they gave her, risperidone. They then told her they had nothing else to offer her. Now has a new puppy, a michelle bridget, that seems to be making her feel much better. Emotionally feels we are doing oi. Seen recently at [facility] ER on 10/03: Partial record are available on clini sync but not all. History of Present Illness Chief Complaint: Chest Pain Informant: patient and family Narrative Narrative: Patient here with son reporting fevers since this morning. Had T-max 100.1 this evening. Status post Tylenol. Chronic cough. Chronic chest pains. No urinary symptoms. No recent vomiting or diarrhea. Reports mild myalgias. Mild headaches. COVID vaccinated with the booster if no infections in the past. Also vaccinated for influenza this year. Denies sick contacts. Patient is on warfarin history of paroxysmal atrial fibrillation. Reports had valvular replacement in the past x2. Chronic diastolic dysfunction. See ER noted from 09/18/21: Patient is a 75-year-old female history of COPD, CHF, aortic valve replacement on warfarin presented to the emergency department by EMS as trauma level 2 given concerns of fall on warfarin. It was reported that OSH did CT H showing potential intracranial hemorrhage however no images were obtained. Patient was not reversed from warfarin at that time and was transferred here for further evaluation.Patient states at this time she has no pain and overall feels well. States that legs gave out and she fell hitting the back of her head. No loss of consciousness. States she is taking her warfarin. No focal weakness or numbness. No vision changes. No shortness of breath, chest pain. Seen at ER and had ct of brain, chest, abd, and spine from neck to lumbar area. No bleed seen on final films so discharged. MEDICATIONS: Current Outpatient Medications Medication Sig montelukast (SINGULAIR) 10 mg tablet Take 1 tablet by mouth daily at bedtime. LORazepam (ATIVAN) 1 mg tablet Take 0.5 tablets by mouth twice daily for 90 days. ferrous sulfate 325 mg (65 mg iron) tablet Take 1 tablet by mouth twice daily with meals. potassium chloride ER (K-DUR, KLOR-CON) 20 mEq tablet Take 1 tablet by mouth once daily. lidocaine viscous (LIDOCAINE VISCOUS) 2 % solution Take 15 mL by mouth every 3 hours as needed for pain. albuterol (PROVENTIL) 2.5 mg /3 mL (0.083 %) nebulizer solution Use 3 mL via nebulizer every 6 hours as needed for wheezing/shortness of breath. DX: J45.40 Hx of moderate persistent Asthma ergocalciferol 50,000 unit capsule (VITAMIN D2, DRISDOL) Take 1 capsule by mouth one time a week. buPROPion XL (WELLBUTRIN XL) 150 mg 24 hr tablet Take 1 tablet by mouth once daily. furosemide (LASIX) 40 mg tablet Take 1 tablet by mouth once daily. warfarin (COUMADIN) 3 mg tablet 3 mg Tues/ Sat, 4.5 mg all other days or as directed (Patient taking differently: 2.5 mg Mon/ Fri, 4.5 mg all other days or as directed ) warfarin (COUMADIN) 2.5 mg tablet 3 mg Tues/ Sat, 4.5 mg all other days or as directed (Patient taking differently: 2.5 mg Mon/ Fri, 4.5 mg all other days or as directed ) amoxicillin-clavulanic acid (AUGMENTIN) 875-125 mg per tablet Take 1 tablet by mouth twice daily. warfarin (COUMADIN) 2.5 mg tablet 2.5 mg Mon/ Fri, 4.5 mg all other days or as directed famotidine (PEPCID) 20 mg tablet Take 1 tablet by mouth at bedtime as needed. pantoprazole DR (PROTONIX) 40 mg tablet Take 1 tablet by mouth twice daily. PARoxetine (PAXIL) 20 mg tablet Take 0.5 tablets by mouth once daily. amiodarone (PACERONE) 200 mg tablet Take 100 mg by mouth once daily. albuterol HFA (PROAIR HFA) 90 mcg/actuation inhaler Inhale 2 Puffs as instructed every 4 hours as needed. budesonide-formoterol (SYMBICORT) 160-4.5 mcg/actuation inhaler Inhale 2 Puffs as instructed twice daily. acetaminophen (TYLENOL EXTRA STRENGTH) 500 mg tablet Take 1 tablet by mouth every 4 hours as neededfor Pain. RANGE FREQ? Nebulizer NEBULIZER FOR HOME USE and necessary supplies. DX: Hypoxemia, Pneumonia and Hemoptisis triamcinolone acetonide (NASACORT) 55 mcg nasal inhaler Use 1 [place] in the nose once daily. pravastatin (PRAVACHOL) 80 mg tablet TAKE 1 TABLET BY MOUTH ONCE DAILY aspirin 81 mg chewable tablet Take 2 tablets by mouth once daily. metoprolol succinate XL, long acting, 50 mg 24 hr tablet Take 1 tablet by mouth once daily. ezetimibe(ZETIA 10 MG TAB) Take one(1) tablet daily. Current Facility-Administered Medications Medication Dose Route Frequency bupivacaine 7.5 mg injection (SENSORCAINE) 3 mL OTHER As Directed ALLERGIES: ALLERGIES Allergen Reactions Adhesive Rash Blistering at site of application. Dextromethorphan Other: See Comments, Mental Status Change Sulfa (Sulfonamide * Other: See Comments Renal dysfunction. Childhood reaction. Generalized swelling Celebrex [Celecoxib] Other: See Comments Migraine headache. Aricept [Donepezil] Myalgia muscle pain and difficulty walking Compazine [Prochlor* Other: See Comments low BP Crestor [Rosuvastat* GI Upset Gabapentin Intolerance Confusion, when coupled with norco Lipitor [Atorvastat* Myalgia Lisinopril Cough No Latex Allergy [O* Oxycodone Itching Penicillins Other: See Comments Heart palpitations. No rash or itch. Can take cephalosporins Prozac [Fluoxetine * Other: See Comments hallucinating Ultram [Tramadol Hc* Itching Codeine Itching PAST MEDICAL HISTORY Diagnosis Date Adjustment disorder with depressed mood Aortic valve disorder Dr. Mckay Carotid stenosis Compression deformity of vertebra Congestive heart failure (HCC) COPD (chronic obstructive pulmonary disease) (HCC) 01/03/2013 Esophageal reflux Normal EGD 12/2012 H/O aortic valve replacement INR should be 2.5 to 3.5 High blood pressure Hyperlipidemia Impaired glucose tolerance Intrinsic asthma 06/[address] done per Dr. Mckay Migraine Myalgia and myositis, unspecified Other forms of migraine Thyroid nodule Unspecified essential hypertension PAST SURGICAL HISTORY Procedure Laterality Date ANTERIOR COLPORRAPHY RPR CYSTOCELE W/CYSTO 2001 w/ uterosacral suspension CARDIOVERSION [facility]- Spring 2019 CLOSURE SEMILUNAR VALVE AORTIC/PULM SUTURE/PATCH 2003 had aortic valve replacement w/ bovine valve COLONOSCOPY FLX DX W/COLLJ SPEC WHEN PFRMD 01/15/13 Colonoscopy COLSC FLX W/RMVL OF TUMOR POLYP LESION SNARE TQ 05/07/2017 Colonoscopy - cecal inflammatory polyps. Repeat in 5 yrs DISPLACEMENT THERAPY PROETZ TYPE x3 ESOPHAGOGASTRODUODENOSCOPY TRANSORAL DIAGNOSTIC 01/15/13 EGD ESOPHAGOGASTRODUODENOSCOPY TRANSORAL DIAGNOSTIC 05/07/2017 EGD FOOT RIGHT OP SURGERY 05/05/2009 HEMORRHOIDECTOMY XTRNL 2/> COLUMN/GROUP LAPS VAGINAL HYSTERECTOMY UTERUS 250 GM/< 2002/2001 usvvs, enterocele repair,apr,lsc pvdr,cysto,spt LOW BACK DISK SURGERY 06/2011 OOPHORECTOMY PARTIAL/TOTAL UNI/BI PAST SURGICAL HISTORY OF 05/10 Thyroid pszykk-krydng-ynkhvxac PAST SURGICAL HISTORY OF aug and september 2011 cataract removal PAST SURGICAL HISTORY OF 06/2012 4 sinus surgeries Thea Little PAST SURGICAL HISTORY OF 2013 aortic valve with On-X valve PERCUTANEOUS AORTIC VALVE REPLACEMENT 09/2013 POSTERIOR COLPORRHAPHY, REPAIR RECTOCELE 2001 SINUS SURGERY PROC UNLISTED 5 times TONSILLECTOMY PRIMARY/SECONDARY <AGE 12 TOTAL ABDOMINAL HYSTERECT W/WO RMVL TUBE OVARY age 31 FAMILY HISTORY Problem Relation Age of Onset Heart Mother Heart Father Diabetes Brother Hypertension Brother Lipids Brother Lipids Daughter other (Depression) Daughter GI Son Lipids Son Diabetes Sister Lipids Sister Social History Tobacco Use Smoking status: Never Smoker Smokeless tobacco: Never Used Tobacco comment: Father smoked in childhood home. Spouse non-smoker. Vaping Use Vaping Use: Never used Substance Use Topics Alcohol use: No Drug use: No Reviewed current medications, allergies, past medical history, surgical history, family history andsocial history today. REVIEW OF SYSTEMS All other reviewed and negative other than HPI. HEALTH MAINTENANCE: Reviewed health maintenance issues today and recommended the following in detail. BP CONTROLLED (<130/80) Never done ADVANCE DIRECTIVE DISCUSSION - has dpoa and living will, is surrogate. Will bring in forms. VITALS: BP 118/80 Pulse 72 Wt 65.3 kg (144 lb) SpO2 92% BMI 27.90 kg/m Last 4 Encounter Wt Readings: Date: Wt: 10/19/2021 65.3 kg (144 lb) 09/16/2021 66.2 kg (146 lb) 07/20/2021 68.5 kg (151 lb) 06/06/2021 68.9 kg (152 lb) PHYSICAL EXAMINATION: General appearance: Well appearing, alert, in no acute distress, well-hydrated, well nourished. Skin: Skin color, texture, turgor normal, no suspicious rashes or lesions Head: Normocephalic, no masses, lesions, tenderness or abnormalities Neck: Supple, no adenopath Lungs: lungs clear. Moving air well. Heart: RRR , murmur unchanged. , gallop, or rubs. No ectopy Abdomen: Normal abdominal exam, Abdomen soft, non-tender. Bowel sounds normal. No masses, organomegaly Extremities: No deformities, edema, skin discoloration, clubbing or cyanosis. Good capillary refill. Musculoskeletal: No joint swelling, deformity, or tenderness Peripheral pulses: Normal Neuro: Gait normal. Reflexes normal and symmetric. Sensation grossly intact. ASSESSMENT/PLAN: 1. Fall, subsequent encounter - ICD9: V58.89, E888.9, ICD10: W19.XXXD (primary diagnosis) - Red flags for re-assessment reviewed with patient in detail. - 2. Advance care planning - ICD9: V65.49, ICD10: Z71.89 Done. 3. Chronic obstructive pulmonary disease, unspecified COPD type (HCC) - ICD9: 496, ICD10: J44.9 - continue to follow progress. See Dr. Johnson. 4. Cough - ICD9: 786.2, ICD10: R05.9 - call if worsens. 5. Depression, unspecified depression type - ICD9: 311, ICD10: F32.A - doing better. Kolby Kim RTO in six to eight weeksand prn. Medical Decision Making documented in this encounterWhite Hospital02-18-2022 History of Present illness Narrative* Tiffany Bhatia, RT(R) - 09/16/2021 5:00 PM EST Radiology Service Progress Note PATIENT NAME: Elza Chu DATE OF SERVICE: September 16, 2021 TIME: 5:00 PM PATIENT IDENTITY VERIFICATION COMPLETED USING TWO (2) IDENTIFIERS: Name and Date of confirmedby patient verbally. FALL SCREENING: Has the patient had 2 falls in the last year or 1 fall with injury or currently using an Ambulatory Assistive Device (Walker, Cane, Wheelchair, Crutches, etc.)? No PATIENT GENDER DATA: Female. status: : No status: NO. PATIENT RELEVANT IMPLANT DATA REVIEWED: Not Applicable RADIOLOGY DEPARTMENT: General X-ray: Exam(s) Completed: Chest X-Ray PERIPHERAL IV DATA: Not applicable SIGNED BY: RT Mariah(R) September 16, 2021 5:00 PM documented in this encounterWhite Hospital12-22-2021 History of Present illness Narrative* Janelle Trevizo RT(R) - 07/20/2021 2:50 PM EST Radiology Service Progress Note PATIENT NAME: Elza Chu DATE OF SERVICE: July 20, 2021 TIME: 2:43 PM PATIENT IDENTITY VERIFICATION COMPLETED USING TWO (2) IDENTIFIERS: Name and Date of confirmedby patient verbally. FALL SCREENING: Has the patient had 2 falls in the last year or 1 fall with injury or currently using an Ambulatory Assistive Device (Walker, Cane, Wheelchair, Crutches, etc.)? No PATIENT GENDER DATA: Female. status: : No status: NO. PATIENT RELEVANT IMPLANT DATA REVIEWED: Yes RADIOLOGY DEPARTMENT: General X-ray: Exam(s) Completed: Chest X-Ray PERIPHERAL IV DATA: Not applicable SIGNED BY: RT Horacio(R) July 20, 2021 2:43 PM documented in this encounterWhite Hospital11-04-2021 History of Present illness Narrative* Janelle Trevizo RT(R) - 06/02/2021 12:10 PM EDT Radiology Service Progress Note PATIENT NAME: Elza Chu DATE OF SERVICE: June 02, 2021 TIME: 12:01 PM PATIENT IDENTITY VERIFICATION COMPLETED USING TWO (2) IDENTIFIERS: Name and Date of confirmedby patient verbally. FALL SCREENING: Has the patient had 2 falls in the last year or 1 fall with injury or currently using an Ambulatory Assistive Device (Walker, Cane, Wheelchair, Crutches, etc.)? No PATIENT GENDER DATA: Female. status: : No status: NO. PATIENT RELEVANT IMPLANT DATA REVIEWED: Yes RADIOLOGY DEPARTMENT: General X-ray: Exam(s) Completed: Chest X-Ray PERIPHERAL IV DATA: Not applicable SIGNED BY: RT Horacio(R) June 02, 2021 12:01 PM documented in this encounterWhite [facility]11-23[facility]2020 History of Present illness Narrative* Hay Huerta (Rt)Ela - 06/21/2020 12:20 PM EST Radiology Service Progress Note PATIENT NAME: Elza Chu DATE OF SERVICE: June 21, 2020 TIME: 12:23 PM PATIENT IDENTITY VERIFICATION COMPLETED USING TWO (2) IDENTIFIERS: Name and Date of confirmedby patient verbally. FALL SCREENING: Has the patient had 2 falls in the last year or 1 fall with injury or currently using an Ambulatory Assistive Device (Walker, Cane, Wheelchair, Crutches, etc.)? No PATIENT GENDER DATA: Female. status: : No status: NO. PATIENT RELEVANT IMPLANT DATA REVIEWED: Not Applicable RADIOLOGY DEPARTMENT: General X-ray: Exam(s) Completed: Spine X-Ray(s): Thoracic and Lumbar AP / LAT / L5-S1 PERIPHERAL IV DATA: Not applicable SIGNED BY: RT William June 21, 2020 12:23 PM documented in this encounterWhite Hospital10-17-2017 History of Past illness Narrative* Problem Noted Date Resolved Date Pseudopolyp of ascending colon without complicat ion 05/15/2017 08/31/2020 Microscopic hematuria 05/17/2016 08/31/2020 Angiomyolipoma 05/17/2016 08/31/2020 Overview: Unchanged on recent ct scan Acute right-sided low back pain with right-sided sciatica 03/23/2016 12/19/2016 Pneumoperitoneum 10/10/2013 04/30/2014 Overview: CXR: Pneumoperitoneum noted under right hemidaphragm. D/w CTS and Cards. Pt asymptomatic. No fevers or tachycardia. Denies any abdominal pain. 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 LVH with apparent volume responsiveness (hemodynamics seemed best with CVP approx 15 and PAD approx 20). DVT prophylaxis: Encourage increased activity, SHAWN hose. Pain following surgery or procedure 10/08/2013 10/14/2013 Overview: Pt w/multiple medication allergies. Reports adequate pain control on current regimen. Lidoderm patches discontinued and steroids are being tapered (started prophylactically for adhesive allergy). Will uptitrate regimen as needed. Hyperchloremic metabolic acidosis 10/08/2013 10/09/2013 Overview: 10/08/13 - slightly acidotic with elevated chloride. Anion pina = +14, delta-delta = -7. No hx or s/s of impaired renal function. Will continue to monitor for now, with plan to treat if hyperchloremia/acidosis persists or worsens Atelectasis/FVO/Pleural effusions 10/08/2013 04/30/2014 Overview: On RA. Wt 2.1 kg above pre-op. CXR: b/l atelectasis. Small effusions. Cont lasix for aggressive diuresis. Plan to continue home bronchodilators, Enc OOB, amb, C&DB, PEP. Mechanically assisted ventilation 10/07/2013 10/08/2013 Overview: 10/07/2013 Residual anesthesia still on board. Will WTE once fully awake and appropriate extubation criteria met, including adequate hemostasis. Acute blood loss anemia 10/07/2013 04/30/20 14 Overview: 10/07/2013 Intraop blood loss with last intraop Hgb of 10.4 Level is adequate for oxygen delivery. Presently minimal need for vasoactive hemodynamic support. Plan Monitor closely for additional bleeding or coagulopathy Fluid resuscitation as needed Consider blood products if acute decompensation or further bleeding, or with Hgb < 7. 10/09/13 - H/H stable, will continue to monitor Cardiac insufficiency following cardiac surgery 10/07/2013 10/09/2013 Overview: 10/07/2013 Immediately postop, needs low dose inotropic support with epinephrine as well as fluid resuscitation to ensure euvolemia (given her LVH and stage 2 diastolic dysfunction). Wean epi as tolerated. Avoid tachycardia 10/08/13 - wean Epi gtt, high fluid balance - begin lasix Stress hyperglycemia 10/07/2013 12/19/2016 Overview: No hx of DM. Will continue SSI to keep glucose < 160 in post-op period. Tapering steroids. Discharge Planning 10/06/2013 01/02/2014 Overview: Discharge today 10.14.2013. Lives in [facility] with . Scheduled appointment with [place] [facility] at 10:[address] on [address] Kim at 11:30 on 10.16.2013. H/o Anxiety 10/06/2013 12/19/2016 Overview: Hx of anxiety. Takes ativan BID at home. Mood stable. Plan to continue as an inpatient and increase dose as needed ASA CLASS II 11/25/2002 11/06/2011 Aortic valve disorder 12/19/2016 Overview: Dr. Mckay documented as of this encounter (statuses as of 10/19/2021) [facility] Past illness Narrative* Problem Noted Date Resolved Date Pseudopolyp of ascending colon without complicat ion 05/15/2017 08/31/2020 Microscopic hematuria 05/17/2016 08/31/2020 Angiomyolipoma 05/17/2016 08/31/2020 Overview: Unchanged on recent ct scan Acute right-sided low back pain with right-sided sciatica 03/23/2016 12/19/2016 Pneumoperitoneum 10/10/2013 04/30/2014 Overview: CXR: Pneumoperitoneum noted under right hemidaphragm. D/w CTS and Cards. Pt asymptomatic. No fevers or tachycardia. Denies any abdominal pain. 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 LVH with apparent volume responsiveness (hemodynamics seemed best with CVP approx 15 and PAD approx 20). DVT prophylaxis: Encourage increased activity, SHAWN hose. Pain following surgery or procedure 10/08/2013 10/14/2013 Overview: Pt w/multiple medication allergies. Reports adequate pain control on current regimen. Lidoderm patches discontinued and steroids are being tapered (started prophylactically for adhesive allergy). Will uptitrate regimen as needed. Hyperchloremic metabolic acidosis 10/08/2013 10/09/2013 Overview: 10/08/13 - slightly acidotic with elevated chloride. Anion pina = +14, delta-delta = -7. No hx or s/s of impaired renal function. Will continue to monitor for now, with plan to treat if hyperchloremia/acidosis persists or worsens Atelectasis/FVO/Pleural effusions 10/08/2013 04/30/2014 Overview: On RA. Wt 2.1 kg above pre-op. CXR: b/l atelectasis. Small effusions. Cont lasix for aggressive diuresis. Plan to continue home bronchodilators, Enc OOB, amb, C&DB, PEP. Mechanically assisted ventilation 10/07/2013 10/08/2013 Overview: 10/07/2013 Residual anesthesia still on board. Will WTE once fully awake and appropriate extubation criteria met, including adequate hemostasis. Acute blood loss anemia 10/07/2013 04/30/20 Overview: 10/07/2013 Intraop blood loss with last intraop Hgb of 10.4 Level is adequate for oxygen delivery. Presently minimal need for vasoactive hemodynamic support. Plan Monitor closely for additional bleeding or coagulopathy Fluid resuscitation as needed Consider blood products if acute decompensation or further bleeding, or with Hgb < 7. 10/09/13 - H/H stable, will continue to monitor Cardiac insufficiency following cardiac surgery 10/07/2013 10/09/2013 Overview: 10/07/2013 Immediately postop, needs low dose inotropic support with epinephrine as well as fluid resuscitation to ensure euvolemia (given her LVH and stage 2 diastolic dysfunction). Wean epi as tolerated. Avoid tachycardia 10/08/13 - wean Epi gtt, high fluid balance - begin lasix Stress hyperglycemia 10/07/2013 12/19/2016 Overview: No hx of DM. Will continue SSI to keep glucose < 160 in post-op period. Tapering steroids. Discharge Planning 10/06/2013 01/02/2014 Overview: Discharge today 10.14.2013. Lives in [facility] with . Scheduled appointment with [place] [facility] at 10:[address] on [address] Kim at 11:30 on 10.16.2013. H/o Anxiety 10/06/2013 12/19/2016 Overview: Hx of anxiety. Takes ativan BID at home. Mood stable. Plan to continue as an inpatient and increase dose as needed ASA CLASS II 11/25/2002 11/06/2011 Aortic valve disorder 12/19/2016 Overview: Dr. Mckay documented as of this encounter (statuses as of 10/20/2021) [facility] Narrative* Problem Noted Date Resolved Date Pseudopolyp of ascending colon without complicat ion 05/15/2017 08/31/2020 Microscopic hematuria 05/17/2016 08/31/2020 Angiomyolipoma 05/17/2016 08/31/2020 Overview: Unchanged on recent ct scan Acute right-sided low back pain with right-sided sciatica 03/23/2016 12/19/2016 Pneumoperitoneum 10/10/2013 04/30/2014 Overview: CXR: Pneumoperitoneum noted under right hemidaphragm. D/w CTS and Cards. Pt asymptomatic. No fevers or tachycardia. Denies any abdominal pain. 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 LVH with apparent volume responsiveness (hemodynamics seemed best with CVP approx 15 and PAD approx 20). DVT prophylaxis: Encourage increased activity, SHAWN hose. Pain following surgery or procedure 10/08/2013 10/14/2013 Overview: Pt w/multiple medication allergies. Reports adequate pain control on current regimen. Lidoderm patches discontinued and steroids are being tapered (started prophylactically for adhesive allergy). Will uptitrate regimen as needed. Hyperchloremic metabolic acidosis 10/08/2013 10/09/2013 Overview: 10/08/13 - slightly acidotic with elevated chloride. Anion pina = +14, delta-delta = -7. No hx or s/s of impaired renal function. Will continue to monitor for now, with plan to treat if hyperchloremia/acidosis persists or worsens Atelectasis/FVO/Pleural effusions 10/08/2013 04/30/2014 Overview: On RA. Wt 2.1 kg above pre-op. CXR: b/l atelectasis. Small effusions. Cont lasix for aggressive diuresis. Plan to continue home bronchodilators, Enc OOB, amb, C&DB, PEP. Mechanically assisted ventilation 10/07/2013 10/08/2013 Overview: 10/07/2013 Residual anesthesia still on board. Will WTE once fully awake and appropriate extubation criteria met, including adequate hemostasis. Acute blood loss anemia 10/07/2013 04/30/20 Overview: 10/07/2013 Intraop blood loss with last intraop Hgb of 10.4 Level is adequate for oxygen delivery. Presently minimal need for vasoactive hemodynamic support. Plan Monitor closely for additional bleeding or coagulopathy Fluid resuscitation as needed Consider blood products if acute decompensation or further bleeding, or with Hgb < 7. 10/09/13 - H/H stable, will continue to monitor Cardiac insufficiency following cardiac surgery 10/07/2013 10/09/2013 Overview: 10/07/2013 Immediately postop, needs low dose inotropic support with epinephrine as well as fluid resuscitation to ensure euvolemia (given her LVH and stage 2 diastolic dysfunction). Wean epi as tolerated. Avoid tachycardia 10/08/13 - wean Epi gtt, high fluid balance - begin lasix Stress hyperglycemia 10/07/2013 12/19/2016 Overview: No hx of DM. Will continue SSI to keep glucose < 160 in post-op period. Tapering steroids. Discharge Planning 10/06/2013 01/02/2014 Overview: Discharge today 10.14.2013. Lives in [facility] with . Scheduled appointment with [place] [facility] at 10:[address] on [address] Kim at 11:30 on 10.16.2013. H/o Anxiety 10/06/2013 12/19/2016 Overview: Hx of anxiety. Takes ativan BID at home. Mood stable. Plan to continue as an inpatient and increase dose as needed ASA CLASS II 11/25/2002 11/06/2011 Aortic valve disorder 12/19/2016 Overview: Dr. Mckay documented as of this encounter (statuses as of 11/17/2021) [facility] Narrative* Problem Noted Date Resolved Date Pseudopolyp of ascending colon without complicat ion 05/15/2017 08/31/2020 Microscopic hematuria 05/17/2016 08/31/2020 Angiomyolipoma 05/17/2016 08/31/2020 Overview: Unchanged on recent ct scan Acute right-sided low back pain with right-sided sciatica 03/23/2016 12/19/2016 Pneumoperitoneum 10/10/2013 04/30/2014 Overview: CXR: Pneumoperitoneum noted under right hemidaphragm. D/w CTS and Cards. Pt asymptomatic. No fevers or tachycardia. Denies any abdominal pain. 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 LVH with apparent volume responsiveness (hemodynamics seemed best with CVP approx 15 and PAD approx 20). DVT prophylaxis: Encourage increased activity, SHAWN hose. Pain following surgery or procedure 10/08/2013 10/14/2013 Overview: Pt w/multiple medication allergies. Reports adequate pain control on current regimen. Lidoderm patches discontinued and steroids are being tapered (started prophylactically for adhesive allergy). Will uptitrate regimen as needed. Hyperchloremic metabolic acidosis 10/08/2013 10/09/2013 Overview: 10/08/13 - slightly acidotic with elevated chloride. Anion pina = +14, delta-delta = -7. No hx or s/s of impaired renal function. Will continue to monitor for now, with plan to treat if hyperchloremia/acidosis persists or worsens Atelectasis/FVO/Pleural effusions 10/08/2013 04/30/2014 Overview: On RA. Wt 2.1 kg above pre-op. CXR: b/l atelectasis. Small effusions. Cont lasix for aggressive diuresis. Plan to continue home bronchodilators, Enc OOB, amb, C&DB, PEP. Mechanically assisted ventilation 10/07/2013 10/08/2013 Overview: 10/07/2013 Residual anesthesia still on board. Will WTE once fully awake and appropriate extubation criteria met, including adequate hemostasis. Acute blood loss anemia 10/07/2013 04/30/20 Overview: 10/07/2013 Intraop blood loss with last intraop Hgb of 10.4 Level is adequate for oxygen delivery. Presently minimal need for vasoactive hemodynamic support. Plan Monitor closely for additional bleeding or coagulopathy Fluid resuscitation as needed Consider blood products if acute decompensation or further bleeding, or with Hgb < 7. 10/09/13 - H/H stable, will continue to monitor Cardiac insufficiency following cardiac surgery 10/07/2013 10/09/2013 Overview: 10/07/2013 Immediately postop, needs low dose inotropic support with epinephrine as well as fluid resuscitation to ensure euvolemia (given her LVH and stage 2 diastolic dysfunction). Wean epi as tolerated. Avoid tachycardia 10/08/13 - wean Epi gtt, high fluid balance - begin lasix Stress hyperglycemia 10/07/2013 12/19/2016 Overview: No hx of DM. Will continue SSI to keep glucose < 160 in post-op period. Tapering steroids. Discharge Planning 10/06/2013 01/02/2014 Overview: Discharge today 10.14.2013. Lives in [facility] with . Scheduled appointment with [place] [facility] at 10:[address] on [address] Kim at 11:30 on 10.16.2013. H/o Anxiety 10/06/2013 12/19/2016 Overview: Hx of anxiety. Takes ativan BID at home. Mood stable. Plan to continue as an inpatient and increase dose as needed ASA CLASS II 11/25/2002 11/06/2011 Aortic valve disorder 12/19/2016 Overview: Dr. Mckay documented as of this encounter (statuses as of 11/17/2021) [facility] Narrative* Problem Noted Date Resolved Date Pseudopolyp of ascending colon without complicat ion 05/15/2017 08/31/2020 Microscopic hematuria 05/17/2016 08/31/2020 Angiomyolipoma 05/17/2016 08/31/2020 Overview: Unchanged on recent ct scan Acute right-sided low back pain with right-sided sciatica 03/23/2016 12/19/2016 Pneumoperitoneum 10/10/2013 04/30/2014 Overview: CXR: Pneumoperitoneum noted under right hemidaphragm. D/w CTS and Cards. Pt asymptomatic. No fevers or tachycardia. Denies any abdominal pain. 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 LVH with apparent volume responsiveness (hemodynamics seemed best with CVP approx 15 and PAD approx 20). DVT prophylaxis: Encourage increased activity, SHAWN hose. Pain following surgery or procedure 10/08/2013 10/14/2013 Overview: Pt w/multiple medication allergies. Reports adequate pain control on current regimen. Lidoderm patches discontinued and steroids are being tapered (started prophylactically for adhesive allergy). Will uptitrate regimen as needed. Hyperchloremic metabolic acidosis 10/08/2013 10/09/2013 Overview: 10/08/13 - slightly acidotic with elevated chloride. Anion pina = +14, delta-delta = -7. No hx or s/s of impaired renal function. Will continue to monitor for now, with plan to treat if hyperchloremia/acidosis persists or worsens Atelectasis/FVO/Pleural effusions 10/08/2013 04/30/2014 Overview: On RA. Wt 2.1 kg above pre-op. CXR: b/l atelectasis. Small effusions. Cont lasix for aggressive diuresis. Plan to continue home bronchodilators, Enc OOB, amb, C&DB, PEP. Mechanically assisted ventilation 10/07/2013 10/08/2013 Overview: 10/07/2013 Residual anesthesia still on board. Will WTE once fully awake and appropriate extubation criteria met, including adequate hemostasis. Acute blood loss anemia 10/07/2013 04/30/20 Overview: 10/07/2013 Intraop blood loss with last intraop Hgb of 10.4 Level is adequate for oxygen delivery. Presently minimal need for vasoactive hemodynamic support. Plan Monitor closely for additional bleeding or coagulopathy Fluid resuscitation as needed Consider blood products if acute decompensation or further bleeding, or with Hgb < 7. 10/09/13 - H/H stable, will continue to monitor Cardiac insufficiency following cardiac surgery 10/07/2013 10/09/2013 Overview: 10/07/2013 Immediately postop, needs low dose inotropic support with epinephrine as well as fluid resuscitation to ensure euvolemia (given her LVH and stage 2 diastolic dysfunction). Wean epi as tolerated. Avoid tachycardia 10/08/13 - wean Epi gtt, high fluid balance - begin lasix Stress hyperglycemia 10/07/2013 12/19/2016 Overview: No hx of DM. Will continue SSI to keep glucose < 160 in post-op period. Tapering steroids. Discharge Planning 10/06/2013 01/02/2014 Overview: Discharge today 10.14.2013. Lives in [facility] with . Scheduled appointment with [place] [facility] at 10:[address] on [address] Kim at 11:30 on 10.16.2013. H/o Anxiety 10/06/2013 12/19/2016 Overview: Hx of anxiety. Takes ativan BID at home. Mood stable. Plan to continue as an inpatient and increase dose as needed ASA CLASS II 11/25/2002 11/06/2011 Aortic valve disorder 12/19/2016 Overview: Dr. Mckay documented as of this encounter (statuses as of 12/01/2021) [facility] Narrative* Problem Noted Date Resolved Date Pseudopolyp of ascending colon without complicat ion 05/15/2017 08/31/2020 Microscopic hematuria 05/17/2016 08/31/2020 Angiomyolipoma 05/17/2016 08/31/2020 Overview: Unchanged on recent ct scan Acute right-sided low back pain with right-sided sciatica 03/23/2016 12/19/2016 Pneumoperitoneum 10/10/2013 04/30/2014 Overview: CXR: Pneumoperitoneum noted under right hemidaphragm. D/w CTS and Cards. Pt asymptomatic. No fevers or tachycardia. Denies any abdominal pain. 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 LVH with apparent volume responsiveness (hemodynamics seemed best with CVP approx 15 and PAD approx 20). DVT prophylaxis: Encourage increased activity, SHAWN vivar. Pain following surgery or procedure 10/08/2013 10/14/2013 Overview: Pt w/multiple medication allergies. Reports adequate pain control on current regimen. Lidoderm patches discontinued and steroids are being tapered (started prophylactically for adhesive allergy). Will uptitrate regimen as needed. Hyperchloremic metabolic acidosis 10/08/2013 10/09/2013 Overview: 10/08/13 - slightly acidotic with elevated chloride. Anion pina = +14, delta-delta = -7. No hx or s/s of impaired renal function. Will continue to monitor for now, with plan to treat if hyperchloremia/acidosis persists or worsens Atelectasis/FVO/Pleural effusions 10/08/2013 04/30/2014 Overview: On RA. Wt 2.1 kg above pre-op. CXR: b/l atelectasis. Small effusions. Cont lasix for aggressive diuresis. Plan to continue home bronchodilators, Enc OOB, amb, C&DB, PEP. Mechanically assisted ventilation 10/07/2013 10/08/2013 Overview: 10/07/2013 Residual anesthesia still on board. Will WTE once fully awake and appropriate extubation criteria met, including adequate hemostasis. Acute blood loss anemia 10/07/2013 04/30/20 Overview: 10/07/2013 Intraop blood loss with last intraop Hgb of 10.4 Level is adequate for oxygen delivery. Presently minimal need for vasoactive hemodynamic support. Plan Monitor closely for additional bleeding or coagulopathy Fluid resuscitation as needed Consider blood products if acute decompensation or further bleeding, or with Hgb < 7. 10/09/13 - H/H stable, will continue to monitor Cardiac insufficiency following cardiac surgery 10/07/2013 10/09/2013 Overview: 10/07/2013 Immediately postop, needs low dose inotropic support with epinephrine as well as fluid resuscitation to ensure euvolemia (given her LVH and stage 2 diastolic dysfunction). Wean epi as tolerated. Avoid tachycardia 10/08/13 - wean Epi gtt, high fluid balance - begin lasix Stress hyperglycemia 10/07/2013 12/19/2016 Overview: No hx of DM. Will continue SSI to keep glucose < 160 in post-op period. Tapering steroids. Discharge Planning 10/06/2013 01/02/2014 Overview: Discharge today 10.14.2013. Lives in [facility] with . Scheduled appointment with [place] [facility] at 10:[address] on [address] Kim at 11:30 on 10.16.2013. H/o Anxiety 10/06/2013 12/19/2016 Overview: Hx of anxiety. Takes ativan BID at home. Mood stable. Plan to continue as an inpatient and increase dose as needed ASA CLASS II 11/25/2002 11/06/2011 Aortic valve disorder 12/19/2016 Overview: Dr. Mckay documented as of this encounter (statuses as of 12/01/2021) [facility] Narrative* Problem Noted Date Resolved Date Pseudopolyp of ascending colon without complicat ion 05/15/2017 08/31/2020 Microscopic hematuria 05/17/2016 08/31/2020 Angiomyolipoma 05/17/2016 08/31/2020 Overview: Unchanged on recent ct scan Hyperdense renal cyst 05/17/2016 12/07/2021 Overview: Unchanged on recent ct scan Acute right-sided low back pain with right-sided sciatica 03/23/2016 12/19/2016 Pneumoperitoneum 10/10/2013 04/30/2014 Overview: CXR: Pneumoperitoneum noted under right hemidaphragm. D/w CTS and Cards. Pt asymptomatic. No fevers or tachycardia. Denies any abdominal pain. 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 LVH with apparent volume responsiveness (hemodynamics seemed best with CVP approx 15 and PAD approx 20). DVT prophylaxis: Encourage increased activity, SHAWN vivar. Pain following surgery or procedure 10/08/2013 10/14/2013 Overview: Pt w/multiple medication allergies. Reports adequate pain control on current regimen. Lidoderm patches discontinued and steroids are being tapered (started prophylactically for adhesive allergy). Will uptitrate regimen as needed. Hyperchloremic metabolic acidosis 10/08/2013 10/09/2013 Overview: 10/08/13 - slightly acidotic with elevated chloride. Anion pina = +14, delta-delta = -7. No hx or s/s of impaired renal function. Will continue to monitor for now, with plan to treat if hyperchloremia/acidosis persists or worsens Atelectasis/FVO/Pleural effusions 10/08/2013 04/30/2014 Overview: On RA. Wt 2.1 kg above pre-op. CXR: b/l atelectasis. Small effusions. Cont lasix for aggressive diuresis. Plan to continue home bronchodilators, Enc OOB, amb, C&DB, PEP. Mechanically assisted ventilation 10/07/2013 10/08/2013 Overview: 10/07/2013 Residual anesthesia still on board. Will WTE once fully awake and appropriate extubation criteria met, including adequate hemostasis. Acute blood loss anemia 10/07/2013 04/30/20 14 Overview: 10/07/2013 Intraop blood loss with last intraop Hgb of 10.4 Level is adequate for oxygen delivery. Presently minimal need for vasoactive hemodynamic support. Plan Monitor closely for additional bleeding or coagulopathy Fluid resuscitation as needed Consider blood products if acute decompensation or further bleeding, or with Hgb < 7. 10/09/13 - H/H stable, will continue to monitor Cardiac insufficiency following cardiac surgery 10/07/2013 10/09/2013 Overview: 10/07/2013 Immediately postop, needs low dose inotropic support with epinephrine as well as fluid resuscitation to ensure euvolemia (given her LVH and stage 2 diastolic dysfunction). Wean epi as tolerated. Avoid tachycardia 10/08/13 - wean Epi gtt, high fluid balance - begin lasix Stress hyperglycemia 10/07/2013 12/19/2016 Overview: No hx of DM. Will continue SSI to keep glucose < 160 in post-op period. Tapering steroids. Discharge Planning 10/06/2013 01/02/2014 Overview: Discharge today 10.14.2013. Lives in [facility] with . Scheduled appointment with [place] [facility] at 10:30 on 10.[address] Kim at 11:30 on 10.16.2013. H/o Anxiety 10/06/2013 12/19/2016 Overview: Hx of anxiety. Takes ativan BID at home. Mood stable. Plan to continue as an inpatient and increase dose as needed ASA CLASS II 11/25/2002 11/06/2011 Aortic valve disorder 12/19/2016 Overview: Dr. Mckay documented as of this encounter (statuses as of 12/07/2021) [facility] History of Past illness Narrative* Problem Noted Date Resolved Date Pseudopolyp of ascending colon without complicat ion 05/15/2017 08/31/2020 Microscopic hematuria 05/17/2016 08/31/2020 Angiomyolipoma 05/17/2016 08/31/2020 Overview: Unchanged on recent ct scan Hyperdense renal cyst 05/17/2016 12/07/2021 Overview: Unchanged on recent ct scan Acute right-sided low back pain with right-sided sciatica 03/23/2016 12/19/2016 Pneumoperitoneum 10/10/2013 04/30/2014 Overview: CXR: Pneumoperitoneum noted under right hemidaphragm. D/w CTS and Cards. Pt asymptomatic. No fevers or tachycardia. Denies any abdominal pain. 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 LVH with apparent volume responsiveness (hemodynamics seemed best with CVP approx 15 and PAD approx 20). DVT prophylaxis: Encourage increased activity, SHAWN hose. Pain following surgery or procedure 10/08/2013 10/14/2013 Overview: Pt w/multiple medication allergies. Reports adequate pain control on current regimen. Lidoderm patches discontinued and steroids are being tapered (started prophylactically for adhesive allergy). Will uptitrate regimen as needed. Hyperchloremic metabolic acidosis 10/08/2013 10/09/2013 Overview: 10/08/13 - slightly acidotic with elevated chloride. Anion pina = +14, delta-delta = -7. No hx or s/s of impaired renal function. Will continue to monitor for now, with plan to treat if hyperchloremia/acidosis persists or worsens Atelectasis/FVO/Pleural effusions 10/08/2013 04/30/2014 Overview: On RA. Wt 2.1 kg above pre-op. CXR: b/l atelectasis. Small effusions. Cont lasix for aggressive diuresis. Plan to continue home bronchodilators, Enc OOB, amb, C&DB, PEP. Mechanically assisted ventilation 10/07/2013 10/08/2013 Overview: 10/07/2013 Residual anesthesia still on board. Will WTE once fully awake and appropriate extubation criteria met, including adequate hemostasis. Acute blood loss anemia 10/07/2013 04/30/20 Overview: 10/07/2013 Intraop blood loss with last intraop Hgb of 10.4 Level is adequate for oxygen delivery. Presently minimal need for vasoactive hemodynamic support. Plan Monitor closely for additional bleeding or coagulopathy Fluid resuscitation as needed Consider blood products if acute decompensation or further bleeding, or with Hgb < 7. 10/09/13 - H/H stable, will continue to monitor Cardiac insufficiency following cardiac surgery 10/07/2013 10/09/2013 Overview: 10/07/2013 Immediately postop, needs low dose inotropic support with epinephrine as well as fluid resuscitation to ensure euvolemia (given her LVH and stage 2 diastolic dysfunction). Wean epi as tolerated. Avoid tachycardia 10/08/13 - wean Epi gtt, high fluid balance - begin lasix Stress hyperglycemia 10/07/2013 12/19/2016 Overview: No hx of DM. Will continue SSI to keep glucose < 160 in post-op period. Tapering steroids. Discharge Planning 10/06/2013 01/02/2014 Overview: Discharge today 10.14.2013. Lives in [facility] with . Scheduled appointment with [place] [facility] at 10:30 on [address] Kim at 11:30 on 10.16.2013. H/o Anxiety 10/06/2013 12/19/2016 Overview: Hx of anxiety. Takes ativan BID at home. Mood stable. Plan to continue as an inpatient and increase dose as needed ASA CLASS II 11/25/2002 11/06/2011 Aortic valve disorder 12/19/2016 Overview: Dr. Mckay documented as of this encounter (statuses as of 12/08/2021) [facility] History of Past illness Narrative* Problem Noted Date Resolved Date Pseudopolyp of ascending colon without complicat ion 05/15/2017 08/31/2020 Microscopic hematuria 05/17/2016 08/31/2020 Angiomyolipoma 05/17/2016 08/31/2020 Overview: Unchanged on recent ct scan Hyperdense renal cyst 05/17/2016 12/07/2021 Overview: Unchanged on recent ct scan Acute right-sided low back pain with right-sided sciatica 03/23/2016 12/19/2016 Pneumoperitoneum 10/10/2013 04/30/2014 Overview: CXR: Pneumoperitoneum noted under right hemidaphragm. D/w CTS and Cards. Pt asymptomatic. No fevers or tachycardia. Denies any abdominal pain. 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 LVH with apparent volume responsiveness (hemodynamics seemed best with CVP approx 15 and PAD approx 20). DVT prophylaxis: Encourage increased activity, SHAWN hose. Pain following surgery or procedure 10/08/2013 10/14/2013 Overview: Pt w/multiple medication allergies. Reports adequate pain control on current regimen. Lidoderm patches discontinued and steroids are being tapered (started prophylactically for adhesive allergy). Will uptitrate regimen as needed. Hyperchloremic metabolic acidosis 10/08/2013 10/09/2013 Overview: 10/08/13 - slightly acidotic with elevated chloride. Anion pina = +14, delta-delta = -7. No hx or s/s of impaired renal function. Will continue to monitor for now, with plan to treat if hyperchloremia/acidosis persists or worsens Atelectasis/FVO/Pleural effusions 10/08/2013 04/30/2014 Overview: On RA. Wt 2.1 kg above pre-op. CXR: b/l atelectasis. Small effusions. Cont lasix for aggressive diuresis. Plan to continue home bronchodilators, Enc OOB, amb, C&DB, PEP. Mechanically assisted ventilation 10/07/2013 10/08/2013 Overview: 10/07/2013 Residual anesthesia still on board. Will WTE once fully awake and appropriate extubation criteria met, including adequate hemostasis. Acute blood loss anemia 10/07/2013 04/30/20 Overview: 10/07/2013 Intraop blood loss with last intraop Hgb of 10.4 Level is adequate for oxygen delivery. Presently minimal need for vasoactive hemodynamic support. Plan Monitor closely for additional bleeding or coagulopathy Fluid resuscitation as needed Consider blood products if acute decompensation or further bleeding, or with Hgb < 7. 10/09/13 - H/H stable, will continue to monitor Cardiac insufficiency following cardiac surgery 10/07/2013 10/09/2013 Overview: 10/07/2013 Immediately postop, needs low dose inotropic support with epinephrine as well as fluid resuscitation to ensure euvolemia (given her LVH and stage 2 diastolic dysfunction). Wean epi as tolerated. Avoid tachycardia 10/08/13 - wean Epi gtt, high fluid balance - begin lasix Stress hyperglycemia 10/07/2013 12/19/2016 Overview: No hx of DM. Will continue SSI to keep glucose < 160 in post-op period. Tapering steroids. Discharge Planning 10/06/2013 01/02/2014 Overview: Discharge today 10.14.2013. Lives in [facility] with . Scheduled appointment with [place] [facility] at 10:30 on 10.[address] Kim at 11:30 on 10.16.2013. H/o Anxiety 10/06/2013 12/19/2016 Overview: Hx of anxiety. Takes ativan BID at home. Mood stable. Plan to continue as an inpatient and increase dose as needed ASA CLASS II 11/25/2002 11/06/2011 Aortic valve disorder 12/19/2016 Overview: Dr. Mckay documented as of this encounter (statuses as of 12/15/2021) [facility] History of Past illness Narrative* Problem Noted Date Resolved Date Pseudopolyp of ascending colon without complicat ion 05/15/2017 08/31/2020 Microscopic hematuria 05/17/2016 08/31/2020 Angiomyolipoma 05/17/2016 08/31/2020 Overview: Unchanged on recent ct scan Hyperdense renal cyst 05/17/2016 12/07/2021 Overview: Unchanged on recent ct scan Acute right-sided low back pain with right-sided sciatica 03/23/2016 12/19/2016 Pneumoperitoneum 10/10/2013 04/30/2014 Overview: CXR: Pneumoperitoneum noted under right hemidaphragm. D/w CTS and Cards. Pt asymptomatic. No fevers or tachycardia. Denies any abdominal pain. 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 LVH with apparent volume responsiveness (hemodynamics seemed best with CVP approx 15 and PAD approx 20). DVT prophylaxis: Encourage increased activity, SHAWN hose. Pain following surgery or procedure 10/08/2013 10/14/2013 Overview: Pt w/multiple medication allergies. Reports adequate pain control on current regimen. Lidoderm patches discontinued and steroids are being tapered (started prophylactically for adhesive allergy). Will uptitrate regimen as needed. Hyperchloremic metabolic acidosis 10/08/2013 10/09/2013 Overview: 10/08/13 - slightly acidotic with elevated chloride. Anion pina = +14, delta-delta = -7. No hx or s/s of impaired renal function. Will continue to monitor for now, with plan to treat if hyperchloremia/acidosis persists or worsens Atelectasis/FVO/Pleural effusions 10/08/2013 04/30/2014 Overview: On RA. Wt 2.1 kg above pre-op. CXR: b/l atelectasis. Small effusions. Cont lasix for aggressive diuresis. Plan to continue home bronchodilators, Enc OOB, amb, C&DB, PEP. Mechanically assisted ventilation 10/07/2013 10/08/2013 Overview: 10/07/2013 Residual anesthesia still on board. Will WTE once fully awake and appropriate extubation criteria met, including adequate hemostasis. Acute blood loss anemia 10/07/2013 04/30/20 Overview: 10/07/2013 Intraop blood loss with last intraop Hgb of 10.4 Level is adequate for oxygen delivery. Presently minimal need for vasoactive hemodynamic support. Plan Monitor closely for additional bleeding or coagulopathy Fluid resuscitation as needed Consider blood products if acute decompensation or further bleeding, or with Hgb < 7. 10/09/13 - H/H stable, will continue to monitor Cardiac insufficiency following cardiac surgery 10/07/2013 10/09/2013 Overview: 10/07/2013 Immediately postop, needs low dose inotropic support with epinephrine as well as fluid resuscitation to ensure euvolemia (given her LVH and stage 2 diastolic dysfunction). Wean epi as tolerated. Avoid tachycardia 10/08/13 - wean Epi gtt, high fluid balance - begin lasix Stress hyperglycemia 10/07/2013 12/19/2016 Overview: No hx of DM. Will continue SSI to keep glucose < 160 in post-op period. Tapering steroids. Discharge Planning 10/06/2013 01/02/2014 Overview: Discharge today 10.14.2013. Lives in [facility] with . Scheduled appointment with [place] [facility] at 10:30 on 10.[address] Kim at 11:30 on 10.16.2013. H/o Anxiety 10/06/2013 12/19/2016 Overview: Hx of anxiety. Takes ativan BID at home. Mood stable. Plan to continue as an inpatient and increase dose as needed ASA CLASS II 11/25/2002 11/06/2011 Aortic valve disorder 12/19/2016 Overview: Dr. Mckay documented as of this encounter (statuses as of 12/15/2021) [facility] History of Past illness Narrative* Problem Noted Date Resolved Date Pseudopolyp of ascending colon without complicat ion 05/15/2017 08/31/2020 Microscopic hematuria 05/17/2016 08/31/2020 Angiomyolipoma 05/17/2016 08/31/2020 Overview: Unchanged on recent ct scan Hyperdense renal cyst 05/17/2016 12/07/2021 Overview: Unchanged on recent ct scan Acute right-sided low back pain with right-sided sciatica 03/23/2016 12/19/2016 Pneumoperitoneum 10/10/2013 04/30/2014 Overview: CXR: Pneumoperitoneum noted under right hemidaphragm. D/w CTS and Cards. Pt asymptomatic. No fevers or tachycardia. Denies any abdominal pain. 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 LVH with apparent volume responsiveness (hemodynamics seemed best with CVP approx 15 and PAD approx 20). DVT prophylaxis: Encourage increased activity, SHAWN hose. Pain following surgery or procedure 10/08/2013 10/14/2013 Overview: Pt w/multiple medication allergies. Reports adequate pain control on current regimen. Lidoderm patches discontinued and steroids are being tapered (started prophylactically for adhesive allergy). Will uptitrate regimen as needed. Hyperchloremic metabolic acidosis 10/08/2013 10/09/2013 Overview: 10/08/13 - slightly acidotic with elevated chloride. Anion pina = +14, delta-delta = -7. No hx or s/s of impaired renal function. Will continue to monitor for now, with plan to treat if hyperchloremia/acidosis persists or worsens Atelectasis/FVO/Pleural effusions 10/08/2013 04/30/2014 Overview: On RA. Wt 2.1 kg above pre-op. CXR: b/l atelectasis. Small effusions. Cont lasix for aggressive diuresis. Plan to continue home bronchodilators, Enc OOB, amb, C&DB, PEP. Mechanically assisted ventilation 10/07/2013 10/08/2013 Overview: 10/07/2013 Residual anesthesia still on board. Will WTE once fully awake and appropriate extubation criteria met, including adequate hemostasis. Acute blood loss anemia 10/07/2013 04/30/20 Overview: 10/07/2013 Intraop blood loss with last intraop Hgb of 10.4 Level is adequate for oxygen delivery. Presently minimal need for vasoactive hemodynamic support. Plan Monitor closely for additional bleeding or coagulopathy Fluid resuscitation as needed Consider blood products if acute decompensation or further bleeding, or with Hgb < 7. 10/09/13 - H/H stable, will continue to monitor Cardiac insufficiency following cardiac surgery 10/07/2013 10/09/2013 Overview: 10/07/2013 Immediately postop, needs low dose inotropic support with epinephrine as well as fluid resuscitation to ensure euvolemia (given her LVH and stage 2 diastolic dysfunction). Wean epi as tolerated. Avoid tachycardia 10/08/13 - wean Epi gtt, high fluid balance - begin lasix Stress hyperglycemia 10/07/2013 12/19/2016 Overview: No hx of DM. Will continue SSI to keep glucose < 160 in post-op period. Tapering steroids. Discharge Planning 10/06/2013 01/02/2014 Overview: Discharge today 10.14.2013. Lives in [facility] with . Scheduled appointment with [place] [facility] at 10:30 on 10.[address] Kim at 11:30 on 10.16.2013. H/o Anxiety 10/06/2013 12/19/2016 Overview: Hx of anxiety. Takes ativan BID at home. Mood stable. Plan to continue as an inpatient and increase dose as needed ASA CLASS II 11/25/2002 11/06/2011 Aortic valve disorder 12/19/2016 Overview: Dr. Mckay documented as of this encounter (statuses as of 12/16/2021) [facility] History of Past illness Narrative* Problem Noted Date Resolved Date Pseudopolyp of ascending colon without complicat ion 05/15/2017 08/31/2020 Microscopic hematuria 05/17/2016 08/31/2020 Angiomyolipoma 05/17/2016 08/31/2020 Overview: Unchanged on recent ct scan Hyperdense renal cyst 05/17/2016 12/07/2021 Overview: Unchanged on recent ct scan Acute right-sided low back pain with right-sided sciatica 03/23/2016 12/19/2016 Pneumoperitoneum 10/10/2013 04/30/2014 Overview: CXR: Pneumoperitoneum noted under right hemidaphragm. D/w CTS and Cards. Pt asymptomatic. No fevers or tachycardia. Denies any abdominal pain. 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 LVH with apparent volume responsiveness (hemodynamics seemed best with CVP approx 15 and PAD approx 20). DVT prophylaxis: Encourage increased activity, SHAWN hose. Pain following surgery or procedure 10/08/2013 10/14/2013 Overview: Pt w/multiple medication allergies. Reports adequate pain control on current regimen. Lidoderm patches discontinued and steroids are being tapered (started prophylactically for adhesive allergy). Will uptitrate regimen as needed. Hyperchloremic metabolic acidosis 10/08/2013 10/09/2013 Overview: 10/08/13 - slightly acidotic with elevated chloride. Anion pina = +14, delta-delta = -7. No hx or s/s of impaired renal function. Will continue to monitor for now, with plan to treat if hyperchloremia/acidosis persists or worsens Atelectasis/FVO/Pleural effusions 10/08/2013 04/30/2014 Overview: On RA. Wt 2.1 kg above pre-op. CXR: b/l atelectasis. Small effusions. Cont lasix for aggressive diuresis. Plan to continue home bronchodilators, Enc OOB, amb, C&DB, PEP. Mechanically assisted ventilation 10/07/2013 10/08/2013 Overview: 10/07/2013 Residual anesthesia still on board. Will WTE once fully awake and appropriate extubation criteria met, including adequate hemostasis. Acute blood loss anemia 10/07/2013 04/30/20 Overview: 10/07/2013 Intraop blood loss with last intraop Hgb of 10.4 Level is adequate for oxygen delivery. Presently minimal need for vasoactive hemodynamic support. Plan Monitor closely for additional bleeding or coagulopathy Fluid resuscitation as needed Consider blood products if acute decompensation or further bleeding, or with Hgb < 7. 10/09/13 - H/H stable, will continue to monitor Cardiac insufficiency following cardiac surgery 10/07/2013 10/09/2013 Overview: 10/07/2013 Immediately postop, needs low dose inotropic support with epinephrine as well as fluid resuscitation to ensure euvolemia (given her LVH and stage 2 diastolic dysfunction). Wean epi as tolerated. Avoid tachycardia 10/08/13 - wean Epi gtt, high fluid balance - begin lasix Stress hyperglycemia 10/07/2013 12/19/2016 Overview: No hx of DM. Will continue SSI to keep glucose < 160 in post-op period. Tapering steroids. Discharge Planning 10/06/2013 01/02/2014 Overview: Discharge today 10.14.2013. Lives in [facility] with . Scheduled appointment with [place] [facility] at 10:30 on [address] Kim at 11:30 on 10.16.2013. H/o Anxiety 10/06/2013 12/19/2016 Overview: Hx of anxiety. Takes ativan BID at home. Mood stable. Plan to continue as an inpatient and increase dose as needed ASA CLASS II 11/25/2002 11/06/2011 Aortic valve disorder 12/19/2016 Overview: Dr. Mckay documented as of this encounter (statuses as of 12/29/2021) [facility] of Past illness Narrative* Problem Noted Date Resolved Date Pseudopolyp of ascending colon without complicat ion 05/15/2017 08/31/2020 Microscopic hematuria 05/17/2016 08/31/2020 Angiomyolipoma 05/17/2016 08/31/2020 Overview: Unchanged on recent ct scan Hyperdense renal cyst 05/17/2016 12/07/2021 Overview: Unchanged on recent ct scan Acute right-sided low back pain with right-sided sciatica 03/23/2016 12/19/2016 Pneumoperitoneum 10/10/2013 04/30/2014 Overview: CXR: Pneumoperitoneum noted under right hemidaphragm. D/w CTS and Cards. Pt asymptomatic. No fevers or tachycardia. Denies any abdominal pain. 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 LVH with apparent volume responsiveness (hemodynamics seemed best with CVP approx 15 and PAD approx 20). DVT prophylaxis: Encourage increased activity, SHAWN hose. Pain following surgery or procedure 10/08/2013 10/14/2013 Overview: Pt w/multiple medication allergies. Reports adequate pain control on current regimen. Lidoderm patches discontinued and steroids are being tapered (started prophylactically for adhesive allergy). Will uptitrate regimen as needed. Hyperchloremic metabolic acidosis 10/08/2013 10/09/2013 Overview: 10/08/13 - slightly acidotic with elevated chloride. Anion pina = +14, delta-delta = -7. No hx or s/s of impaired renal function. Will continue to monitor for now, with plan to treat if hyperchloremia/acidosis persists or worsens Atelectasis/FVO/Pleural effusions 10/08/2013 04/30/2014 Overview: On RA. Wt 2.1 kg above pre-op. CXR: b/l atelectasis. Small effusions. Cont lasix for aggressive diuresis. Plan to continue home bronchodilators, Enc OOB, amb, C&DB, PEP. Mechanically assisted ventilation 10/07/2013 10/08/2013 Overview: 10/07/2013 Residual anesthesia still on board. Will WTE once fully awake and appropriate extubation criteria met, including adequate hemostasis. Acute blood loss anemia 10/07/2013 04/30/20 14 Overview: 10/07/2013 Intraop blood loss with last intraop Hgb of 10.4 Level is adequate for oxygen delivery. Presently minimal need for vasoactive hemodynamic support. Plan Monitor closely for additional bleeding or coagulopathy Fluid resuscitation as needed Consider blood products if acute decompensation or further bleeding, or with Hgb < 7. 10/09/13 - H/H stable, will continue to monitor Cardiac insufficiency following cardiac surgery 10/07/2013 10/09/2013 Overview: 10/07/2013 Immediately postop, needs low dose inotropic support with epinephrine as well as fluid resuscitation to ensure euvolemia (given her LVH and stage 2 diastolic dysfunction). Wean epi as tolerated. Avoid tachycardia 10/08/13 - wean Epi gtt, high fluid balance - begin lasix Stress hyperglycemia 10/07/2013 12/19/2016 Overview: No hx of DM. Will continue SSI to keep glucose < 160 in post-op period. Tapering steroids. Discharge Planning 10/06/2013 01/02/2014 Overview: Discharge today 10.14.2013. Lives in [facility] with . Scheduled appointment with [place] [facility] at 10:30 on 10.[address] Kim at 11:30 on 10.16.2013. H/o Anxiety 10/06/2013 12/19/2016 Overview: Hx of anxiety. Takes ativan BID at home. Mood stable. Plan to continue as an inpatient and increase dose as needed ASA CLASS II 11/25/2002 11/06/2011 Aortic valve disorder 12/19/2016 Overview: Dr. Mckay documented as of this encounter (statuses as of 01/02/2022) [facility] History of Past illness Narrative* Problem Noted Date Resolved Date Pseudopolyp of ascending colon without complicat ion 05/15/2017 08/31/2020 Microscopic hematuria 05/17/2016 08/31/2020 Angiomyolipoma 05/17/2016 08/31/2020 Overview: Unchanged on recent ct scan Hyperdense renal cyst 05/17/2016 12/07/2021 Overview: Unchanged on recent ct scan Acute right-sided low back pain with right-sided sciatica 03/23/2016 12/19/2016 Pneumoperitoneum 10/10/2013 04/30/2014 Overview: CXR: Pneumoperitoneum noted under right hemidaphragm. D/w CTS and Cards. Pt asymptomatic. No fevers or tachycardia. Denies any abdominal pain. 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 LVH with apparent volume responsiveness (hemodynamics seemed best with CVP approx 15 and PAD approx 20). DVT prophylaxis: Encourage increased activity, SHAWN hose. Pain following surgery or procedure 10/08/2013 10/14/2013 Overview: Pt w/multiple medication allergies. Reports adequate pain control on current regimen. Lidoderm patches discontinued and steroids are being tapered (started prophylactically for adhesive allergy). Will uptitrate regimen as needed. Hyperchloremic metabolic acidosis 10/08/2013 10/09/2013 Overview: 10/08/13 - slightly acidotic with elevated chloride. Anion pina = +14, delta-delta = -7. No hx or s/s of impaired renal function. Will continue to monitor for now, with plan to treat if hyperchloremia/acidosis persists or worsens Atelectasis/FVO/Pleural effusions 10/08/2013 04/30/2014 Overview: On RA. Wt 2.1 kg above pre-op. CXR: b/l atelectasis. Small effusions. Cont lasix for aggressive diuresis. Plan to continue home bronchodilators, Enc OOB, amb, C&DB, PEP. Mechanically assisted ventilation 10/07/2013 10/08/2013 Overview: 10/07/2013 Residual anesthesia still on board. Will WTE once fully awake and appropriate extubation criteria met, including adequate hemostasis. Acute blood loss anemia 10/07/2013 04/30/20 14 Overview: 10/07/2013 Intraop blood loss with last intraop Hgb of 10.4 Level is adequate for oxygen delivery. Presently minimal need for vasoactive hemodynamic support. Plan Monitor closely for additional bleeding or coagulopathy Fluid resuscitation as needed Consider blood products if acute decompensation or further bleeding, or with Hgb < 7. 10/09/13 - H/H stable, will continue to monitor Cardiac insufficiency following cardiac surgery 10/07/2013 10/09/2013 Overview: 10/07/2013 Immediately postop, needs low dose inotropic support with epinephrine as well as fluid resuscitation to ensure euvolemia (given her LVH and stage 2 diastolic dysfunction). Wean epi as tolerated. Avoid tachycardia 10/08/13 - wean Epi gtt, high fluid balance - begin lasix Stress hyperglycemia 10/07/2013 12/19/2016 Overview: No hx of DM. Will continue SSI to keep glucose < 160 in post-op period. Tapering steroids. Discharge Planning 10/06/2013 01/02/2014 Overview: Discharge today 10.14.2013. Lives in [facility] with . Scheduled appointment with [place] [facility] at 10:30 on 10.[address] Kim at 11:30 on 10.16.2013. H/o Anxiety 10/06/2013 12/19/2016 Overview: Hx of anxiety. Takes ativan BID at home. Mood stable. Plan to continue as an inpatient and increase dose as needed ASA CLASS II 11/25/2002 11/06/2011 Aortic valve disorder 12/19/2016 Overview: Dr. Mckay documented as of this encounter (statuses as of 01/09/2022) [facility] History of Past illness Narrative* Problem Noted Date Resolved Date Pseudopolyp of ascending colon without complicat ion 05/15/2017 08/31/2020 Microscopic hematuria 05/17/2016 08/31/2020 Angiomyolipoma 05/17/2016 08/31/2020 Overview: Unchanged on recent ct scan Hyperdense renal cyst 05/17/2016 12/07/2021 Overview: Unchanged on recent ct scan Acute right-sided low back pain with right-sided sciatica 03/23/2016 12/19/2016 Pneumoperitoneum 10/10/2013 04/30/2014 Overview: CXR: Pneumoperitoneum noted under right hemidaphragm. D/w CTS and Cards. Pt asymptomatic. No fevers or tachycardia. Denies any abdominal pain. 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 LVH with apparent volume responsiveness (hemodynamics seemed best with CVP approx 15 and PAD approx 20). DVT prophylaxis: Encourage increased activity, SHAWN hose. Pain following surgery or procedure 10/08/2013 10/14/2013 Overview: Pt w/multiple medication allergies. Reports adequate pain control on current regimen. Lidoderm patches discontinued and steroids are being tapered (started prophylactically for adhesive allergy). Will uptitrate regimen as needed. Hyperchloremic metabolic acidosis 10/08/2013 10/09/2013 Overview: 10/08/13 - slightly acidotic with elevated chloride. Anion pina = +14, delta-delta = -7. No hx or s/s of impaired renal function. Will continue to monitor for now, with plan to treat if hyperchloremia/acidosis persists or worsens Atelectasis/FVO/Pleural effusions 10/08/2013 04/30/2014 Overview: On RA. Wt 2.1 kg above pre-op. CXR: b/l atelectasis. Small effusions. Cont lasix for aggressive diuresis. Plan to continue home bronchodilators, Enc OOB, amb, C&DB, PEP. Mechanically assisted ventilation 10/07/2013 10/08/2013 Overview: 10/07/2013 Residual anesthesia still on board. Will WTE once fully awake and appropriate extubation criteria met, including adequate hemostasis. Acute blood loss anemia 10/07/2013 04/30/20 Overview: 10/07/2013 Intraop blood loss with last intraop Hgb of 10.4 Level is adequate for oxygen delivery. Presently minimal need for vasoactive hemodynamic support. Plan Monitor closely for additional bleeding or coagulopathy Fluid resuscitation as needed Consider blood products if acute decompensation or further bleeding, or with Hgb < 7. 10/09/13 - H/H stable, will continue to monitor Cardiac insufficiency following cardiac surgery 10/07/2013 10/09/2013 Overview: 10/07/2013 Immediately postop, needs low dose inotropic support with epinephrine as well as fluid resuscitation to ensure euvolemia (given her LVH and stage 2 diastolic dysfunction). Wean epi as tolerated. Avoid tachycardia 10/08/13 - wean Epi gtt, high fluid balance - begin lasix Stress hyperglycemia 10/07/2013 12/19/2016 Overview: No hx of DM. Will continue SSI to keep glucose < 160 in post-op period. Tapering steroids. Discharge Planning 10/06/2013 01/02/2014 Overview: Discharge today 10.14.2013. Lives in [facility] with . Scheduled appointment with [place] [facility] at 10:30 on 10.[address] Kim at 11:30 on 10.16.2013. H/o Anxiety 10/06/2013 12/19/2016 Overview: Hx of anxiety. Takes ativan BID at home. Mood stable. Plan to continue as an inpatient and increase dose as needed ASA CLASS II 11/25/2002 11/06/2011 Aortic valve disorder 12/19/2016 Overview: Dr. Mckay documented as of this encounter (statuses as of 01/09/2022) [facility] History of Past illness Narrative* Problem Noted Date Resolved Date Pseudopolyp of ascending colon without complicat ion 05/15/2017 08/31/2020 Microscopic hematuria 05/17/2016 08/31/2020 Angiomyolipoma 05/17/2016 08/31/2020 Overview: Unchanged on recent ct scan Hyperdense renal cyst 05/17/2016 12/07/2021 Overview: Unchanged on recent ct scan Acute right-sided low back pain with right-sided sciatica 03/23/2016 12/19/2016 Pneumoperitoneum 10/10/2013 04/30/2014 Overview: CXR: Pneumoperitoneum noted under right hemidaphragm. D/w CTS and Cards. Pt asymptomatic. No fevers or tachycardia. Denies any abdominal pain. 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 LVH with apparent volume responsiveness (hemodynamics seemed best with CVP approx 15 and PAD approx 20). DVT prophylaxis: Encourage increased activity, SHAWN hose. Pain following surgery or procedure 10/08/2013 10/14/2013 Overview: Pt w/multiple medication allergies. Reports adequate pain control on current regimen. Lidoderm patches discontinued and steroids are being tapered (started prophylactically for adhesive allergy). Will uptitrate regimen as needed. Hyperchloremic metabolic acidosis 10/08/2013 10/09/2013 Overview: 10/08/13 - slightly acidotic with elevated chloride. Anion pina = +14, delta-delta = -7. No hx or s/s of impaired renal function. Will continue to monitor for now, with plan to treat if hyperchloremia/acidosis persists or worsens Atelectasis/FVO/Pleural effusions 10/08/2013 04/30/2014 Overview: On RA. Wt 2.1 kg above pre-op. CXR: b/l atelectasis. Small effusions. Cont lasix for aggressive diuresis. Plan to continue home bronchodilators, Enc OOB, amb, C&DB, PEP. Mechanically assisted ventilation 10/07/2013 10/08/2013 Overview: 10/07/2013 Residual anesthesia still on board. Will WTE once fully awake and appropriate extubation criteria met, including adequate hemostasis. Acute blood loss anemia 10/07/2013 04/30/20 Overview: 10/07/2013 Intraop blood loss with last intraop Hgb of 10.4 Level is adequate for oxygen delivery. Presently minimal need for vasoactive hemodynamic support. Plan Monitor closely for additional bleeding or coagulopathy Fluid resuscitation as needed Consider blood products if acute decompensation or further bleeding, or with Hgb < 7. 10/09/13 - H/H stable, will continue to monitor Cardiac insufficiency following cardiac surgery 10/07/2013 10/09/2013 Overview: 10/07/2013 Immediately postop, needs low dose inotropic support with epinephrine as well as fluid resuscitation to ensure euvolemia (given her LVH and stage 2 diastolic dysfunction). Wean epi as tolerated. Avoid tachycardia 10/08/13 - wean Epi gtt, high fluid balance - begin lasix Stress hyperglycemia 10/07/2013 12/19/2016 Overview: No hx of DM. Will continue SSI to keep glucose < 160 in post-op period. Tapering steroids. Discharge Planning 10/06/2013 01/02/2014 Overview: Discharge today 10.14.2013. Lives in [facility] with . Scheduled appointment with [place] [facility] at 10:30 on 10.[address] Kim at 11:30 on 10.16.2013. H/o Anxiety 10/06/2013 12/19/2016 Overview: Hx of anxiety. Takes ativan BID at home. Mood stable. Plan to continue as an inpatient and increase dose as needed ASA CLASS II 11/25/2002 11/06/2011 Aortic valve disorder 12/19/2016 Overview: Dr. Mckay documented as of this encounter (statuses as of 01/12/2022) [facility] History of Past illness Narrative* Problem Noted Date Resolved Date Pseudopolyp of ascending colon without complicat ion 05/15/2017 08/31/2020 Microscopic hematuria 05/17/2016 08/31/2020 Angiomyolipoma 05/17/2016 08/31/2020 Overview: Unchanged on recent ct scan Hyperdense renal cyst 05/17/2016 12/07/2021 Overview: Unchanged on recent ct scan Acute right-sided low back pain with right-sided sciatica 03/23/2016 12/19/2016 Pneumoperitoneum 10/10/2013 04/30/2014 Overview: CXR: Pneumoperitoneum noted under right hemidaphragm. D/w CTS and Cards. Pt asymptomatic. No fevers or tachycardia. Denies any abdominal pain. 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 LVH with apparent volume responsiveness (hemodynamics seemed best with CVP approx 15 and PAD approx 20). DVT prophylaxis: Encourage increased activity, SHAWN vivar. Pain following surgery or procedure 10/08/2013 10/14/2013 Overview: Pt w/multiple medication allergies. Reports adequate pain control on current regimen. Lidoderm patches discontinued and steroids are being tapered (started prophylactically for adhesive allergy). Will uptitrate regimen as needed. Hyperchloremic metabolic acidosis 10/08/2013 10/09/2013 Overview: 10/08/13 - slightly acidotic with elevated chloride. Anion pina = +14, delta-delta = -7. No hx or s/s of impaired renal function. Will continue to monitor for now, with plan to treat if hyperchloremia/acidosis persists or worsens Atelectasis/FVO/Pleural effusions 10/08/2013 04/30/2014 Overview: On RA. Wt 2.1 kg above pre-op. CXR: b/l atelectasis. Small effusions. Cont lasix for aggressive diuresis. Plan to continue home bronchodilators, Enc OOB, amb, C&DB, PEP. Mechanically assisted ventilation 10/07/2013 10/08/2013 Overview: 10/07/2013 Residual anesthesia still on board. Will WTE once fully awake and appropriate extubation criteria met, including adequate hemostasis. Acute blood loss anemia 10/07/2013 04/30/20 Overview: 10/07/2013 Intraop blood loss with last intraop Hgb of 10.4 Level is adequate for oxygen delivery. Presently minimal need for vasoactive hemodynamic support. Plan Monitor closely for additional bleeding or coagulopathy Fluid resuscitation as needed Consider blood products if acute decompensation or further bleeding, or with Hgb < 7. 10/09/13 - H/H stable, will continue to monitor Cardiac insufficiency following cardiac surgery 10/07/2013 10/09/2013 Overview: 10/07/2013 Immediately postop, needs low dose inotropic support with epinephrine as well as fluid resuscitation to ensure euvolemia (given her LVH and stage 2 diastolic dysfunction). Wean epi as tolerated. Avoid tachycardia 10/08/13 - wean Epi gtt, high fluid balance - begin lasix Stress hyperglycemia 10/07/2013 12/19/2016 Overview: No hx of DM. Will continue SSI to keep glucose < 160 in post-op period. Tapering steroids. Discharge Planning 10/06/2013 01/02/2014 Overview: Discharge today 10.14.2013. Lives in [facility] with . Scheduled appointment with [place] [facility] at 10:30 on 10.[address] Kim at 11:30 on 10.16.2013. H/o Anxiety 10/06/2013 12/19/2016 Overview: Hx of anxiety. Takes ativan BID at home. Mood stable. Plan to continue as an inpatient and increase dose as needed ASA CLASS II 11/25/2002 11/06/2011 Aortic valve disorder 12/19/2016 Overview: Dr. Mckay documented as of this encounter (statuses as of 01/17/2022) [facility] History of Past illness Narrative* Problem Noted Date Resolved Date Pseudopolyp of ascending colon without complicat ion 05/15/2017 08/31/2020 Microscopic hematuria 05/17/2016 08/31/2020 Angiomyolipoma 05/17/2016 08/31/2020 Overview: Unchanged on recent ct scan Hyperdense renal cyst 05/17/2016 12/07/2021 Overview: Unchanged on recent ct scan Acute right-sided low back pain with right-sided sciatica 03/23/2016 12/19/2016 Pneumoperitoneum 10/10/2013 04/30/2014 Overview: CXR: Pneumoperitoneum noted under right hemidaphragm. D/w CTS and Cards. Pt asymptomatic. No fevers or tachycardia. Denies any abdominal pain. 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 LVH with apparent volume responsiveness (hemodynamics seemed best with CVP approx 15 and PAD approx 20). DVT prophylaxis: Encourage increased activity, SHAWN vivar. Pain following surgery or procedure 10/08/2013 10/14/2013 Overview: Pt w/multiple medication allergies. Reports adequate pain control on current regimen. Lidoderm patches discontinued and steroids are being tapered (started prophylactically for adhesive allergy). Will uptitrate regimen as needed. Hyperchloremic metabolic acidosis 10/08/2013 10/09/2013 Overview: 10/08/13 - slightly acidotic with elevated chloride. Anion pina = +14, delta-delta = -7. No hx or s/s of impaired renal function. Will continue to monitor for now, with plan to treat if hyperchloremia/acidosis persists or worsens Atelectasis/FVO/Pleural effusions 10/08/2013 04/30/2014 Overview: On RA. Wt 2.1 kg above pre-op. CXR: b/l atelectasis. Small effusions. Cont lasix for aggressive diuresis. Plan to continue home bronchodilators, Enc OOB, amb, C&DB, PEP. Mechanically assisted ventilation 10/07/2013 10/08/2013 Overview: 10/07/2013 Residual anesthesia still on board. Will WTE once fully awake and appropriate extubation criteria met, including adequate hemostasis. Acute blood loss anemia 10/07/2013 04/30/20 14 Overview: 10/07/2013 Intraop blood loss with last intraop Hgb of 10.4 Level is adequate for oxygen delivery. Presently minimal need for vasoactive hemodynamic support. Plan Monitor closely for additional bleeding or coagulopathy Fluid resuscitation as needed Consider blood products if acute decompensation or further bleeding, or with Hgb < 7. 10/09/13 - H/H stable, will continue to monitor Cardiac insufficiency following cardiac surgery 10/07/2013 10/09/2013 Overview: 10/07/2013 Immediately postop, needs low dose inotropic support with epinephrine as well as fluid resuscitation to ensure euvolemia (given her LVH and stage 2 diastolic dysfunction). Wean epi as tolerated. Avoid tachycardia 10/08/13 - wean Epi gtt, high fluid balance - begin lasix Stress hyperglycemia 10/07/2013 12/19/2016 Overview: No hx of DM. Will continue SSI to keep glucose < 160 in post-op period. Tapering steroids. Discharge Planning 10/06/2013 01/02/2014 Overview: Discharge today 10.14.2013. Lives in [facility] with . Scheduled appointment with [place] [facility] at 10:30 on [address] Kim at 11:30 on 10.16.2013. H/o Anxiety 10/06/2013 12/19/2016 Overview: Hx of anxiety. Takes ativan BID at home. Mood stable. Plan to continue as an inpatient and increase dose as needed ASA CLASS II 11/25/2002 11/06/2011 Aortic valve disorder 12/19/2016 Overview: Dr. Mckay documented as of this encounter (statuses as of 01/24/2022) [facility] Past illness Narrative* Problem Noted Date Resolved Date Pseudopolyp of ascending colon without complicat ion 05/15/2017 08/31/2020 Microscopic hematuria 05/17/2016 08/31/2020 Angiomyolipoma 05/17/2016 08/31/2020 Overview: Unchanged on recent ct scan Hyperdense renal cyst 05/17/2016 12/07/2021 Overview: Unchanged on recent ct scan Acute right-sided low back pain with right-sided sciatica 03/23/2016 12/19/2016 Pneumoperitoneum 10/10/2013 04/30/2014 Overview: CXR: Pneumoperitoneum noted under right hemidaphragm. D/w CTS and Cards. Pt asymptomatic. No fevers or tachycardia. Denies any abdominal pain. 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 LVH with apparent volume responsiveness (hemodynamics seemed best with CVP approx 15 and PAD approx 20). DVT prophylaxis: Encourage increased activity, SHAWN hose. Pain following surgery or procedure 10/08/2013 10/14/2013 Overview: Pt w/multiple medication allergies. Reports adequate pain control on current regimen. Lidoderm patches discontinued and steroids are being tapered (started prophylactically for adhesive allergy). Will uptitrate regimen as needed. Hyperchloremic metabolic acidosis 10/08/2013 10/09/2013 Overview: 10/08/13 - slightly acidotic with elevated chloride. Anion pina = +14, delta-delta = -7. No hx or s/s of impaired renal function. Will continue to monitor for now, with plan to treat if hyperchloremia/acidosis persists or worsens Atelectasis/FVO/Pleural effusions 10/08/2013 04/30/2014 Overview: On RA. Wt 2.1 kg above pre-op. CXR: b/l atelectasis. Small effusions. Cont lasix for aggressive diuresis. Plan to continue home bronchodilators, Enc OOB, amb, C&DB, PEP. Mechanically assisted ventilation 10/07/2013 10/08/2013 Overview: 10/07/2013 Residual anesthesia still on board. Will WTE once fully awake and appropriate extubation criteria met, including adequate hemostasis. Acute blood loss anemia 10/07/2013 04/30/20 Overview: 10/07/2013 Intraop blood loss with last intraop Hgb of 10.4 Level is adequate for oxygen delivery. Presently minimal need for vasoactive hemodynamic support. Plan Monitor closely for additional bleeding or coagulopathy Fluid resuscitation as needed Consider blood products if acute decompensation or further bleeding, or with Hgb < 7. 10/09/13 - H/H stable, will continue to monitor Cardiac insufficiency following cardiac surgery 10/07/2013 10/09/2013 Overview: 10/07/2013 Immediately postop, needs low dose inotropic support with epinephrine as well as fluid resuscitation to ensure euvolemia (given her LVH and stage 2 diastolic dysfunction). Wean epi as tolerated. Avoid tachycardia 10/08/13 - wean Epi gtt, high fluid balance - begin lasix Stress hyperglycemia 10/07/2013 12/19/2016 Overview: No hx of DM. Will continue SSI to keep glucose < 160 in post-op period. Tapering steroids. Discharge Planning 10/06/2013 01/02/2014 Overview: Discharge today 10.14.2013. Lives in [facility] with . Scheduled appointment with [place] [facility] at 10:30 on [address] Kim at 11:30 on 10.16.2013. H/o Anxiety 10/06/2013 12/19/2016 Overview: Hx of anxiety. Takes ativan BID at home. Mood stable. Plan to continue as an inpatient and increase dose as needed ASA CLASS II 11/25/2002 11/06/2011 Aortic valve disorder 12/19/2016 Overview: Dr. Mckay documented as of this encounter (statuses as of 01/31/2022) [facility] Past illness Narrative* Problem Noted Date Resolved Date Pseudopolyp of ascending colon without complicat ion 05/15/2017 08/31/2020 Microscopic hematuria 05/17/2016 08/31/2020 Angiomyolipoma 05/17/2016 08/31/2020 Overview: Unchanged on recent ct scan Hyperdense renal cyst 05/17/2016 12/07/2021 Overview: Unchanged on recent ct scan Acute right-sided low back pain with right-sided sciatica 03/23/2016 12/19/2016 Pneumoperitoneum 10/10/2013 04/30/2014 Overview: CXR: Pneumoperitoneum noted under right hemidaphragm. D/w CTS and Cards. Pt asymptomatic. No fevers or tachycardia. Denies any abdominal pain. 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 LVH with apparent volume responsiveness (hemodynamics seemed best with CVP approx 15 and PAD approx 20). DVT prophylaxis: Encourage increased activity, SHAWN hose. Pain following surgery or procedure 10/08/2013 10/14/2013 Overview: Pt w/multiple medication allergies. Reports adequate pain control on current regimen. Lidoderm patches discontinued and steroids are being tapered (started prophylactically for adhesive allergy). Will uptitrate regimen as needed. Hyperchloremic metabolic acidosis 10/08/2013 10/09/2013 Overview: 10/08/13 - slightly acidotic with elevated chloride. Anion pina = +14, delta-delta = -7. No hx or s/s of impaired renal function. Will continue to monitor for now, with plan to treat if hyperchloremia/acidosis persists or worsens Atelectasis/FVO/Pleural effusions 10/08/2013 04/30/2014 Overview: On RA. Wt 2.1 kg above pre-op. CXR: b/l atelectasis. Small effusions. Cont lasix for aggressive diuresis. Plan to continue home bronchodilators, Enc OOB, amb, C&DB, PEP. Mechanically assisted ventilation 10/07/2013 10/08/2013 Overview: 10/07/2013 Residual anesthesia still on board. Will WTE once fully awake and appropriate extubation criteria met, including adequate hemostasis. Acute blood loss anemia 10/07/2013 04/30/20 Overview: 10/07/2013 Intraop blood loss with last intraop Hgb of 10.4 Level is adequate for oxygen delivery. Presently minimal need for vasoactive hemodynamic support. Plan Monitor closely for additional bleeding or coagulopathy Fluid resuscitation as needed Consider blood products if acute decompensation or further bleeding, or with Hgb < 7. 10/09/13 - H/H stable, will continue to monitor Cardiac insufficiency following cardiac surgery 10/07/2013 10/09/2013 Overview: 10/07/2013 Immediately postop, needs low dose inotropic support with epinephrine as well as fluid resuscitation to ensure euvolemia (given her LVH and stage 2 diastolic dysfunction). Wean epi as tolerated. Avoid tachycardia 10/08/13 - wean Epi gtt, high fluid balance - begin lasix Stress hyperglycemia 10/07/2013 12/19/2016 Overview: No hx of DM. Will continue SSI to keep glucose < 160 in post-op period. Tapering steroids. Discharge Planning 10/06/2013 01/02/2014 Overview: Discharge today 10.14.2013. Lives in [facility] with . Scheduled appointment with [place] [facility] at 10:30 on 10.[address] Kim at 11:30 on 10.16.2013. H/o Anxiety 10/06/2013 12/19/2016 Overview: Hx of anxiety. Takes ativan BID at home. Mood stable. Plan to continue as an inpatient and increase dose as needed ASA CLASS II 11/25/2002 11/06/2011 Aortic valve disorder 12/19/2016 Overview: Dr. Mckay documented as of this encounter (statuses as of 01/31/2022) [facility] History of Past illness Narrative* Problem Noted Date Resolved Date Pseudopolyp of ascending colon without complicat ion 05/15/2017 08/31/2020 Microscopic hematuria 05/17/2016 08/31/2020 Angiomyolipoma 05/17/2016 08/31/2020 Overview: Unchanged on recent ct scan Hyperdense renal cyst 05/17/2016 12/07/2021 Overview: Unchanged on recent ct scan Acute right-sided low back pain with right-sided sciatica 03/23/2016 12/19/2016 Pneumoperitoneum 10/10/2013 04/30/2014 Overview: CXR: Pneumoperitoneum noted under right hemidaphragm. D/w CTS and Cards. Pt asymptomatic. No fevers or tachycardia. Denies any abdominal pain. 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 LVH with apparent volume responsiveness (hemodynamics seemed best with CVP approx 15 and PAD approx 20). DVT prophylaxis: Encourage increased activity, SHAWN hose. Pain following surgery or procedure 10/08/2013 10/14/2013 Overview: Pt w/multiple medication allergies. Reports adequate pain control on current regimen. Lidoderm patches discontinued and steroids are being tapered (started prophylactically for adhesive allergy). Will uptitrate regimen as needed. Hyperchloremic metabolic acidosis 10/08/2013 10/09/2013 Overview: 10/08/13 - slightly acidotic with elevated chloride. Anion pina = +14, delta-delta = -7. No hx or s/s of impaired renal function. Will continue to monitor for now, with plan to treat if hyperchloremia/acidosis persists or worsens Atelectasis/FVO/Pleural effusions 10/08/2013 04/30/2014 Overview: On RA. Wt 2.1 kg above pre-op. CXR: b/l atelectasis. Small effusions. Cont lasix for aggressive diuresis. Plan to continue home bronchodilators, Enc OOB, amb, C&DB, PEP. Mechanically assisted ventilation 10/07/2013 10/08/2013 Overview: 10/07/2013 Residual anesthesia still on board. Will WTE once fully awake and appropriate extubation criteria met, including adequate hemostasis. Acute blood loss anemia 10/07/2013 04/30/20 Overview: 10/07/2013 Intraop blood loss with last intraop Hgb of 10.4 Level is adequate for oxygen delivery. Presently minimal need for vasoactive hemodynamic support. Plan Monitor closely for additional bleeding or coagulopathy Fluid resuscitation as needed Consider blood products if acute decompensation or further bleeding, or with Hgb < 7. 10/09/13 - H/H stable, will continue to monitor Cardiac insufficiency following cardiac surgery 10/07/2013 10/09/2013 Overview: 10/07/2013 Immediately postop, needs low dose inotropic support with epinephrine as well as fluid resuscitation to ensure euvolemia (given her LVH and stage 2 diastolic dysfunction). Wean epi as tolerated. Avoid tachycardia 10/08/13 - wean Epi gtt, high fluid balance - begin lasix Stress hyperglycemia 10/07/2013 12/19/2016 Overview: No hx of DM. Will continue SSI to keep glucose < 160 in post-op period. Tapering steroids. Discharge Planning 10/06/2013 01/02/2014 Overview: Discharge today 10.14.2013. Lives in [facility] with . Scheduled appointment with [place] [facility] at 10:30 on [address] Kim at 11:30 on 10.16.2013. H/o Anxiety 10/06/2013 12/19/2016 Overview: Hx of anxiety. Takes ativan BID at home. Mood stable. Plan to continue as an inpatient and increase dose as needed ASA CLASS II 11/25/2002 11/06/2011 Aortic valve disorder 12/19/2016 Overview: Dr. Mckay documented as of this encounter (statuses as of 02/08/2022) [facility] History of Past illness Narrative* Problem Noted Date Resolved Date Pseudopolyp of ascending colon without complicat ion 05/15/2017 08/31/2020 Microscopic hematuria 05/17/2016 08/31/2020 Angiomyolipoma 05/17/2016 08/31/2020 Overview: Unchanged on recent ct scan Hyperdense renal cyst 05/17/2016 12/07/2021 Overview: Unchanged on recent ct scan Acute right-sided low back pain with right-sided sciatica 03/23/2016 12/19/2016 Pneumoperitoneum 10/10/2013 04/30/2014 Overview: CXR: Pneumoperitoneum noted under right hemidaphragm. D/w CTS and Cards. Pt asymptomatic. No fevers or tachycardia. Denies any abdominal pain. 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 LVH with apparent volume responsiveness (hemodynamics seemed best with CVP approx 15 and PAD approx 20). DVT prophylaxis: Encourage increased activity, SHAWN hose. Pain following surgery or procedure 10/08/2013 10/14/2013 Overview: Pt w/multiple medication allergies. Reports adequate pain control on current regimen. Lidoderm patches discontinued and steroids are being tapered (started prophylactically for adhesive allergy). Will uptitrate regimen as needed. Hyperchloremic metabolic acidosis 10/08/2013 10/09/2013 Overview: 10/08/13 - slightly acidotic with elevated chloride. Anion pina = +14, delta-delta = -7. No hx or s/s of impaired renal function. Will continue to monitor for now, with plan to treat if hyperchloremia/acidosis persists or worsens Atelectasis/FVO/Pleural effusions 10/08/2013 04/30/2014 Overview: On RA. Wt 2.1 kg above pre-op. CXR: b/l atelectasis. Small effusions. Cont lasix for aggressive diuresis. Plan to continue home bronchodilators, Enc OOB, amb, C&DB, PEP. Mechanically assisted ventilation 10/07/2013 10/08/2013 Overview: 10/07/2013 Residual anesthesia still on board. Will WTE once fully awake and appropriate extubation criteria met, including adequate hemostasis. Acute blood loss anemia 10/07/2013 04/30/20 Overview: 10/07/2013 Intraop blood loss with last intraop Hgb of 10.4 Level is adequate for oxygen delivery. Presently minimal need for vasoactive hemodynamic support. Plan Monitor closely for additional bleeding or coagulopathy Fluid resuscitation as needed Consider blood products if acute decompensation or further bleeding, or with Hgb < 7. 10/09/13 - H/H stable, will continue to monitor Cardiac insufficiency following cardiac surgery 10/07/2013 10/09/2013 Overview: 10/07/2013 Immediately postop, needs low dose inotropic support with epinephrine as well as fluid resuscitation to ensure euvolemia (given her LVH and stage 2 diastolic dysfunction). Wean epi as tolerated. Avoid tachycardia 10/08/13 - wean Epi gtt, high fluid balance - begin lasix Stress hyperglycemia 10/07/2013 12/19/2016 Overview: No hx of DM. Will continue SSI to keep glucose < 160 in post-op period. Tapering steroids. Discharge Planning 10/06/2013 01/02/2014 Overview: Discharge today 10.14.2013. Lives in [facility] with . Scheduled appointment with [place] [facility] at 10:30 on 10.[address] Kim at 11:30 on 10.16.2013. H/o Anxiety 10/06/2013 12/19/2016 Overview: Hx of anxiety. Takes ativan BID at home. Mood stable. Plan to continue as an inpatient and increase dose as needed ASA CLASS II 11/25/2002 11/06/2011 Aortic valve disorder 12/19/2016 Overview: Dr. Mckay documented as of this encounter (statuses as of 02/14/2022) [facility] History of Past illness Narrative* Problem Noted Date Resolved Date Pseudopolyp of ascending colon without complicat ion 05/15/2017 08/31/2020 Microscopic hematuria 05/17/2016 08/31/2020 Angiomyolipoma 05/17/2016 08/31/2020 Overview: Unchanged on recent ct scan Hyperdense renal cyst 05/17/2016 12/07/2021 Overview: Unchanged on recent ct scan Acute right-sided low back pain with right-sided sciatica 03/23/2016 12/19/2016 Pneumoperitoneum 10/10/2013 04/30/2014 Overview: CXR: Pneumoperitoneum noted under right hemidaphragm. D/w CTS and Cards. Pt asymptomatic. No fevers or tachycardia. Denies any abdominal pain. 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 LVH with apparent volume responsiveness (hemodynamics seemed best with CVP approx 15 and PAD approx 20). DVT prophylaxis: Encourage increased activity, SHAWN hose. Pain following surgery or procedure 10/08/2013 10/14/2013 Overview: Pt w/multiple medication allergies. Reports adequate pain control on current regimen. Lidoderm patches discontinued and steroids are being tapered (started prophylactically for adhesive allergy). Will uptitrate regimen as needed. Hyperchloremic metabolic acidosis 10/08/2013 10/09/2013 Overview: 10/08/13 - slightly acidotic with elevated chloride. Anion pina = +14, delta-delta = -7. No hx or s/s of impaired renal function. Will continue to monitor for now, with plan to treat if hyperchloremia/acidosis persists or worsens Atelectasis/FVO/Pleural effusions 10/08/2013 04/30/2014 Overview: On RA. Wt 2.1 kg above pre-op. CXR: b/l atelectasis. Small effusions. Cont lasix for aggressive diuresis. Plan to continue home bronchodilators, Enc OOB, amb, C&DB, PEP. Mechanically assisted ventilation 10/07/2013 10/08/2013 Overview: 10/07/2013 Residual anesthesia still on board. Will WTE once fully awake and appropriate extubation criteria met, including adequate hemostasis. Acute blood loss anemia 10/07/2013 04/30/20 Overview: 10/07/2013 Intraop blood loss with last intraop Hgb of 10.4 Level is adequate for oxygen delivery. Presently minimal need for vasoactive hemodynamic support. Plan Monitor closely for additional bleeding or coagulopathy Fluid resuscitation as needed Consider blood products if acute decompensation or further bleeding, or with Hgb < 7. 10/09/13 - H/H stable, will continue to monitor Cardiac insufficiency following cardiac surgery 10/07/2013 10/09/2013 Overview: 10/07/2013 Immediately postop, needs low dose inotropic support with epinephrine as well as fluid resuscitation to ensure euvolemia (given her LVH and stage 2 diastolic dysfunction). Wean epi as tolerated. Avoid tachycardia 10/08/13 - wean Epi gtt, high fluid balance - begin lasix Stress hyperglycemia 10/07/2013 12/19/2016 Overview: No hx of DM. Will continue SSI to keep glucose < 160 in post-op period. Tapering steroids. Discharge Planning 10/06/2013 01/02/2014 Overview: Discharge today 10.14.2013. Lives in [facility] with . Scheduled appointment with [place] [facility] at 10:30 on [address] Kim at 11:30 on 10.16.2013. H/o Anxiety 10/06/2013 12/19/2016 Overview: Hx of anxiety. Takes ativan BID at home. Mood stable. Plan to continue as an inpatient and increase dose as needed ASA CLASS II 11/25/2002 11/06/2011 Aortic valve disorder 12/19/2016 Overview: Dr. Mckay documented as of this encounter (statuses as of 02/16/2022) [facility] History of Past illness Narrative* Problem Noted Date Resolved Date Pseudopolyp of ascending colon without complicat ion 05/15/2017 08/31/2020 Microscopic hematuria 05/17/2016 08/31/2020 Angiomyolipoma 05/17/2016 08/31/2020 Overview: Unchanged on recent ct scan Hyperdense renal cyst 05/17/2016 12/07/2021 Overview: Unchanged on recent ct scan Acute right-sided low back pain with right-sided sciatica 03/23/2016 12/19/2016 Pneumoperitoneum 10/10/2013 04/30/2014 Overview: CXR: Pneumoperitoneum noted under right hemidaphragm. D/w CTS and Cards. Pt asymptomatic. No fevers or tachycardia. Denies any abdominal pain. 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 LVH with apparent volume responsiveness (hemodynamics seemed best with CVP approx 15 and PAD approx 20). DVT prophylaxis: Encourage increased activity, SHAWN hose. Pain following surgery or procedure 10/08/2013 10/14/2013 Overview: Pt w/multiple medication allergies. Reports adequate pain control on current regimen. Lidoderm patches discontinued and steroids are being tapered (started prophylactically for adhesive allergy). Will uptitrate regimen as needed. Hyperchloremic metabolic acidosis 10/08/2013 10/09/2013 Overview: 10/08/13 - slightly acidotic with elevated chloride. Anion pina = +14, delta-delta = -7. No hx or s/s of impaired renal function. Will continue to monitor for now, with plan to treat if hyperchloremia/acidosis persists or worsens Atelectasis/FVO/Pleural effusions 10/08/2013 04/30/2014 Overview: On RA. Wt 2.1 kg above pre-op. CXR: b/l atelectasis. Small effusions. Cont lasix for aggressive diuresis. Plan to continue home bronchodilators, Enc OOB, amb, C&DB, PEP. Mechanically assisted ventilation 10/07/2013 10/08/2013 Overview: 10/07/2013 Residual anesthesia still on board. Will WTE once fully awake and appropriate extubation criteria met, including adequate hemostasis. Acute blood loss anemia 10/07/2013 04/30/20 14 Overview: 10/07/2013 Intraop blood loss with last intraop Hgb of 10.4 Level is adequate for oxygen delivery. Presently minimal need for vasoactive hemodynamic support. Plan Monitor closely for additional bleeding or coagulopathy Fluid resuscitation as needed Consider blood products if acute decompensation or further bleeding, or with Hgb < 7. 10/09/13 - H/H stable, will continue to monitor Cardiac insufficiency following cardiac surgery 10/07/2013 10/09/2013 Overview: 10/07/2013 Immediately postop, needs low dose inotropic support with epinephrine as well as fluid resuscitation to ensure euvolemia (given her LVH and stage 2 diastolic dysfunction). Wean epi as tolerated. Avoid tachycardia 10/08/13 - wean Epi gtt, high fluid balance - begin lasix Stress hyperglycemia 10/07/2013 12/19/2016 Overview: No hx of DM. Will continue SSI to keep glucose < 160 in post-op period. Tapering steroids. Discharge Planning 10/06/2013 01/02/2014 Overview: Discharge today 10.14.2013. Lives in [facility] with . Scheduled appointment with [place] [facility] at 10:30 on [address] Kim at 11:30 on 10.16.2013. H/o Anxiety 10/06/2013 12/19/2016 Overview: Hx of anxiety. Takes ativan BID at home. Mood stable. Plan to continue as an inpatient and increase dose as needed ASA CLASS II 11/25/2002 11/06/2011 Aortic valve disorder 12/19/2016 Overview: Dr. Mckay documented as of this encounter (statuses as of 02/20/2022) [facility] History of Past illness Narrative* Problem Noted Date Resolved Date Pseudopolyp of ascending colon without complicat ion 05/15/2017 08/31/2020 Microscopic hematuria 05/17/2016 08/31/2020 Angiomyolipoma 05/17/2016 08/31/2020 Overview: Unchanged on recent ct scan Hyperdense renal cyst 05/17/2016 12/07/2021 Overview: Unchanged on recent ct scan Acute right-sided low back pain with right-sided sciatica 03/23/2016 12/19/2016 Pneumoperitoneum 10/10/2013 04/30/2014 Overview: CXR: Pneumoperitoneum noted under right hemidaphragm. D/w CTS and Cards. Pt asymptomatic. No fevers or tachycardia. Denies any abdominal pain. 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 LVH with apparent volume responsiveness (hemodynamics seemed best with CVP approx 15 and PAD approx 20). DVT prophylaxis: Encourage increased activity, SHAWN hose. Pain following surgery or procedure 10/08/2013 10/14/2013 Overview: Pt w/multiple medication allergies. Reports adequate pain control on current regimen. Lidoderm patches discontinued and steroids are being tapered (started prophylactically for adhesive allergy). Will uptitrate regimen as needed. Hyperchloremic metabolic acidosis 10/08/2013 10/09/2013 Overview: 10/08/13 - slightly acidotic with elevated chloride. Anion pina = +14, delta-delta = -7. No hx or s/s of impaired renal function. Will continue to monitor for now, with plan to treat if hyperchloremia/acidosis persists or worsens Atelectasis/FVO/Pleural effusions 10/08/2013 04/30/2014 Overview: On RA. Wt 2.1 kg above pre-op. CXR: b/l atelectasis. Small effusions. Cont lasix for aggressive diuresis. Plan to continue home bronchodilators, Enc OOB, amb, C&DB, PEP. Mechanically assisted ventilation 10/07/2013 10/08/2013 Overview: 10/07/2013 Residual anesthesia still on board. Will WTE once fully awake and appropriate extubation criteria met, including adequate hemostasis. Acute blood loss anemia 10/07/2013 04/30/20 14 Overview: 10/07/2013 Intraop blood loss with last intraop Hgb of 10.4 Level is adequate for oxygen delivery. Presently minimal need for vasoactive hemodynamic support. Plan Monitor closely for additional bleeding or coagulopathy Fluid resuscitation as needed Consider blood products if acute decompensation or further bleeding, or with Hgb < 7. 10/09/13 - H/H stable, will continue to monitor Cardiac insufficiency following cardiac surgery 10/07/2013 10/09/2013 Overview: 10/07/2013 Immediately postop, needs low dose inotropic support with epinephrine as well as fluid resuscitation to ensure euvolemia (given her LVH and stage 2 diastolic dysfunction). Wean epi as tolerated. Avoid tachycardia 10/08/13 - wean Epi gtt, high fluid balance - begin lasix Stress hyperglycemia 10/07/2013 12/19/2016 Overview: No hx of DM. Will continue SSI to keep glucose < 160 in post-op period. Tapering steroids. Discharge Planning 10/06/2013 01/02/2014 Overview: Discharge today 10.14.2013. Lives in [facility] with . Scheduled appointment with [place] [facility] at 10:30 on [address] Kim at 11:30 on 10.16.2013. H/o Anxiety 10/06/2013 12/19/2016 Overview: Hx of anxiety. Takes ativan BID at home. Mood stable. Plan to continue as an inpatient and increase dose as needed ASA CLASS II 11/25/2002 11/06/2011 Aortic valve disorder 12/19/2016 Overview: Dr. Mckay documented as of this encounter (statuses as of 02/28/2022) [facility] of Past illness Narrative* Problem Noted Date Resolved Date Pseudopolyp of ascending colon without complicat ion 05/15/2017 08/31/2020 Microscopic hematuria 05/17/2016 08/31/2020 Angiomyolipoma 05/17/2016 08/31/2020 Overview: Unchanged on recent ct scan Hyperdense renal cyst 05/17/2016 12/07/2021 Overview: Unchanged on recent ct scan Acute right-sided low back pain with right-sided sciatica 03/23/2016 12/19/2016 Pneumoperitoneum 10/10/2013 04/30/2014 Overview: CXR: Pneumoperitoneum noted under right hemidaphragm. D/w CTS and Cards. Pt asymptomatic. No fevers or tachycardia. Denies any abdominal pain. 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 LVH with apparent volume responsiveness (hemodynamics seemed best with CVP approx 15 and PAD approx 20). DVT prophylaxis: Encourage increased activity, SHAWN hose. Pain following surgery or procedure 10/08/2013 10/14/2013 Overview: Pt w/multiple medication allergies. Reports adequate pain control on current regimen. Lidoderm patches discontinued and steroids are being tapered (started prophylactically for adhesive allergy). Will uptitrate regimen as needed. Hyperchloremic metabolic acidosis 10/08/2013 10/09/2013 Overview: 10/08/13 - slightly acidotic with elevated chloride. Anion pina = +14, delta-delta = -7. No hx or s/s of impaired renal function. Will continue to monitor for now, with plan to treat if hyperchloremia/acidosis persists or worsens Atelectasis/FVO/Pleural effusions 10/08/2013 04/30/2014 Overview: On RA. Wt 2.1 kg above pre-op. CXR: b/l atelectasis. Small effusions. Cont lasix for aggressive diuresis. Plan to continue home bronchodilators, Enc OOB, amb, C&DB, PEP. Mechanically assisted ventilation 10/07/2013 10/08/2013 Overview: 10/07/2013 Residual anesthesia still on board. Will WTE once fully awake and appropriate extubation criteria met, including adequate hemostasis. Acute blood loss anemia 10/07/2013 04/30/20 Overview: 10/07/2013 Intraop blood loss with last intraop Hgb of 10.4 Level is adequate for oxygen delivery. Presently minimal need for vasoactive hemodynamic support. Plan Monitor closely for additional bleeding or coagulopathy Fluid resuscitation as needed Consider blood products if acute decompensation or further bleeding, or with Hgb < 7. 10/09/13 - H/H stable, will continue to monitor Cardiac insufficiency following cardiac surgery 10/07/2013 10/09/2013 Overview: 10/07/2013 Immediately postop, needs low dose inotropic support with epinephrine as well as fluid resuscitation to ensure euvolemia (given her LVH and stage 2 diastolic dysfunction). Wean epi as tolerated. Avoid tachycardia 10/08/13 - wean Epi gtt, high fluid balance - begin lasix Stress hyperglycemia 10/07/2013 12/19/2016 Overview: No hx of DM. Will continue SSI to keep glucose < 160 in post-op period. Tapering steroids. Discharge Planning 10/06/2013 01/02/2014 Overview: Discharge today 10.14.2013. Lives in [facility] with . Scheduled appointment with [place] [facility] at 10:30 on 10.[address] Kim at 11:30 on 10.16.2013. H/o Anxiety 10/06/2013 12/19/2016 Overview: Hx of anxiety. Takes ativan BID at home. Mood stable. Plan to continue as an inpatient and increase dose as needed ASA CLASS II 11/25/2002 11/06/2011 Aortic valve disorder 12/19/2016 Overview: Dr. Mckay documented as of this encounter (statuses as of 03/01/2022) [facility] History of Past illness Narrative* Problem Noted Date Resolved Date Pseudopolyp of ascending colon without complicat ion 05/15/2017 08/31/2020 Microscopic hematuria 05/17/2016 08/31/2020 Angiomyolipoma 05/17/2016 08/31/2020 Overview: Unchanged on recent ct scan Hyperdense renal cyst 05/17/2016 12/07/2021 Overview: Unchanged on recent ct scan Acute right-sided low back pain with right-sided sciatica 03/23/2016 12/19/2016 Pneumoperitoneum 10/10/2013 04/30/2014 Overview: CXR: Pneumoperitoneum noted under right hemidaphragm. D/w CTS and Cards. Pt asymptomatic. No fevers or tachycardia. Denies any abdominal pain. 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 LVH with apparent volume responsiveness (hemodynamics seemed best with CVP approx 15 and PAD approx 20). DVT prophylaxis: Encourage increased activity, SHAWN hose. Pain following surgery or procedure 10/08/2013 10/14/2013 Overview: Pt w/multiple medication allergies. Reports adequate pain control on current regimen. Lidoderm patches discontinued and steroids are being tapered (started prophylactically for adhesive allergy). Will uptitrate regimen as needed. Hyperchloremic metabolic acidosis 10/08/2013 10/09/2013 Overview: 10/08/13 - slightly acidotic with elevated chloride. Anion pina = +14, delta-delta = -7. No hx or s/s of impaired renal function. Will continue to monitor for now, with plan to treat if hyperchloremia/acidosis persists or worsens Atelectasis/FVO/Pleural effusions 10/08/2013 04/30/2014 Overview: On RA. Wt 2.1 kg above pre-op. CXR: b/l atelectasis. Small effusions. Cont lasix for aggressive diuresis. Plan to continue home bronchodilators, Enc OOB, amb, C&DB, PEP. Mechanically assisted ventilation 10/07/2013 10/08/2013 Overview: 10/07/2013 Residual anesthesia still on board. Will WTE once fully awake and appropriate extubation criteria met, including adequate hemostasis. Acute blood loss anemia 10/07/2013 04/30/20 Overview: 10/07/2013 Intraop blood loss with last intraop Hgb of 10.4 Level is adequate for oxygen delivery. Presently minimal need for vasoactive hemodynamic support. Plan Monitor closely for additional bleeding or coagulopathy Fluid resuscitation as needed Consider blood products if acute decompensation or further bleeding, or with Hgb < 7. 10/09/13 - H/H stable, will continue to monitor Cardiac insufficiency following cardiac surgery 10/07/2013 10/09/2013 Overview: 10/07/2013 Immediately postop, needs low dose inotropic support with epinephrine as well as fluid resuscitation to ensure euvolemia (given her LVH and stage 2 diastolic dysfunction). Wean epi as tolerated. Avoid tachycardia 10/08/13 - wean Epi gtt, high fluid balance - begin lasix Stress hyperglycemia 10/07/2013 12/19/2016 Overview: No hx of DM. Will continue SSI to keep glucose < 160 in post-op period. Tapering steroids. Discharge Planning 10/06/2013 01/02/2014 Overview: Discharge today 10.14.2013. Lives in [facility] with . Scheduled appointment with [place] [facility] at 10:30 on 10.[address] Kim at 11:30 on 10.16.2013. H/o Anxiety 10/06/2013 12/19/2016 Overview: Hx of anxiety. Takes ativan BID at home. Mood stable. Plan to continue as an inpatient and increase dose as needed ASA CLASS II 11/25/2002 11/06/2011 Aortic valve disorder 12/19/2016 Overview: Dr. Mckay documented as of this encounter (statuses as of 03/09/2022) [facility] History of Past illness Narrative* Problem Noted Date Resolved Date Pseudopolyp of ascending colon without complicat ion 05/15/2017 08/31/2020 Microscopic hematuria 05/17/2016 08/31/2020 Angiomyolipoma 05/17/2016 08/31/2020 Overview: Unchanged on recent ct scan Hyperdense renal cyst 05/17/2016 12/07/2021 Overview: Unchanged on recent ct scan Acute right-sided low back pain with right-sided sciatica 03/23/2016 12/19/2016 Pneumoperitoneum 10/10/2013 04/30/2014 Overview: CXR: Pneumoperitoneum noted under right hemidaphragm. D/w CTS and Cards. Pt asymptomatic. No fevers or tachycardia. Denies any abdominal pain. 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 LVH with apparent volume responsiveness (hemodynamics seemed best with CVP approx 15 and PAD approx 20). DVT prophylaxis: Encourage increased activity, SHAWN hose. Pain following surgery or procedure 10/08/2013 10/14/2013 Overview: Pt w/multiple medication allergies. Reports adequate pain control on current regimen. Lidoderm patches discontinued and steroids are being tapered (started prophylactically for adhesive allergy). Will uptitrate regimen as needed. Hyperchloremic metabolic acidosis 10/08/2013 10/09/2013 Overview: 10/08/13 - slightly acidotic with elevated chloride. Anion pina = +14, delta-delta = -7. No hx or s/s of impaired renal function. Will continue to monitor for now, with plan to treat if hyperchloremia/acidosis persists or worsens Atelectasis/FVO/Pleural effusions 10/08/2013 04/30/2014 Overview: On RA. Wt 2.1 kg above pre-op. CXR: b/l atelectasis. Small effusions. Cont lasix for aggressive diuresis. Plan to continue home bronchodilators, Enc OOB, amb, C&DB, PEP. Mechanically assisted ventilation 10/07/2013 10/08/2013 Overview: 10/07/2013 Residual anesthesia still on board. Will WTE once fully awake and appropriate extubation criteria met, including adequate hemostasis. Acute blood loss anemia 10/07/2013 04/30/20 Overview: 10/07/2013 Intraop blood loss with last intraop Hgb of 10.4 Level is adequate for oxygen delivery. Presently minimal need for vasoactive hemodynamic support. Plan Monitor closely for additional bleeding or coagulopathy Fluid resuscitation as needed Consider blood products if acute decompensation or further bleeding, or with Hgb < 7. 10/09/13 - H/H stable, will continue to monitor Cardiac insufficiency following cardiac surgery 10/07/2013 10/09/2013 Overview: 10/07/2013 Immediately postop, needs low dose inotropic support with epinephrine as well as fluid resuscitation to ensure euvolemia (given her LVH and stage 2 diastolic dysfunction). Wean epi as tolerated. Avoid tachycardia 10/08/13 - wean Epi gtt, high fluid balance - begin lasix Stress hyperglycemia 10/07/2013 12/19/2016 Overview: No hx of DM. Will continue SSI to keep glucose < 160 in post-op period. Tapering steroids. Discharge Planning 10/06/2013 01/02/2014 Overview: Discharge today 10.14.2013. Lives in [facility] with . Scheduled appointment with [place] [facility] at 10:30 on 10.[address] Kim at 11:30 on 10.16.2013. H/o Anxiety 10/06/2013 12/19/2016 Overview: Hx of anxiety. Takes ativan BID at home. Mood stable. Plan to continue as an inpatient and increase dose as needed ASA CLASS II 11/25/2002 11/06/2011 Aortic valve disorder 12/19/2016 Overview: Dr. Mckay documented as of this encounter (statuses as of 03/10/2022) [facility] History of Past illness Narrative* Problem Noted Date Resolved Date Pseudopolyp of ascending colon without complicat ion 05/15/2017 08/31/2020 Microscopic hematuria 05/17/2016 08/31/2020 Angiomyolipoma 05/17/2016 08/31/2020 Overview: Unchanged on recent ct scan Hyperdense renal cyst 05/17/2016 12/07/2021 Overview: Unchanged on recent ct scan Acute right-sided low back pain with right-sided sciatica 03/23/2016 12/19/2016 Pneumoperitoneum 10/10/2013 04/30/2014 Overview: CXR: Pneumoperitoneum noted under right hemidaphragm. D/w CTS and Cards. Pt asymptomatic. No fevers or tachycardia. Denies any abdominal pain. 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 LVH with apparent volume responsiveness (hemodynamics seemed best with CVP approx 15 and PAD approx 20). DVT prophylaxis: Encourage increased activity, SHAWN hose. Pain following surgery or procedure 10/08/2013 10/14/2013 Overview: Pt w/multiple medication allergies. Reports adequate pain control on current regimen. Lidoderm patches discontinued and steroids are being tapered (started prophylactically for adhesive allergy). Will uptitrate regimen as needed. Hyperchloremic metabolic acidosis 10/08/2013 10/09/2013 Overview: 10/08/13 - slightly acidotic with elevated chloride. Anion pina = +14, delta-delta = -7. No hx or s/s of impaired renal function. Will continue to monitor for now, with plan to treat if hyperchloremia/acidosis persists or worsens Atelectasis/FVO/Pleural effusions 10/08/2013 04/30/2014 Overview: On RA. Wt 2.1 kg above pre-op. CXR: b/l atelectasis. Small effusions. Cont lasix for aggressive diuresis. Plan to continue home bronchodilators, Enc OOB, amb, C&DB, PEP. Mechanically assisted ventilation 10/07/2013 10/08/2013 Overview: 10/07/2013 Residual anesthesia still on board. Will WTE once fully awake and appropriate extubation criteria met, including adequate hemostasis. Acute blood loss anemia 10/07/2013 04/30/20 Overview: 10/07/2013 Intraop blood loss with last intraop Hgb of 10.4 Level is adequate for oxygen delivery. Presently minimal need for vasoactive hemodynamic support. Plan Monitor closely for additional bleeding or coagulopathy Fluid resuscitation as needed Consider blood products if acute decompensation or further bleeding, or with Hgb < 7. 10/09/13 - H/H stable, will continue to monitor Cardiac insufficiency following cardiac surgery 10/07/2013 10/09/2013 Overview: 10/07/2013 Immediately postop, needs low dose inotropic support with epinephrine as well as fluid resuscitation to ensure euvolemia (given her LVH and stage 2 diastolic dysfunction). Wean epi as tolerated. Avoid tachycardia 10/08/13 - wean Epi gtt, high fluid balance - begin lasix Stress hyperglycemia 10/07/2013 12/19/2016 Overview: No hx of DM. Will continue SSI to keep glucose < 160 in post-op period. Tapering steroids. Discharge Planning 10/06/2013 01/02/2014 Overview: Discharge today 10.14.2013. Lives in [facility] with . Scheduled appointment with [place] [facility] at 10:30 on 10.[address] Kim at 11:30 on 10.16.2013. H/o Anxiety 10/06/2013 12/19/2016 Overview: Hx of anxiety. Takes ativan BID at home. Mood stable. Plan to continue as an inpatient and increase dose as needed ASA CLASS II 11/25/2002 11/06/2011 Aortic valve disorder 12/19/2016 Overview: Dr. Mckay documented as of this encounter (statuses as of 03/13/2022) [facility] History of Past illness Narrative* Problem Noted Date Resolved Date Pseudopolyp of ascending colon without complicat ion 05/15/2017 08/31/2020 Microscopic hematuria 05/17/2016 08/31/2020 Angiomyolipoma 05/17/2016 08/31/2020 Overview: Unchanged on recent ct scan Hyperdense renal cyst 05/17/2016 12/07/2021 Overview: Unchanged on recent ct scan Acute right-sided low back pain with right-sided sciatica 03/23/2016 12/19/2016 Pneumoperitoneum 10/10/2013 04/30/2014 Overview: CXR: Pneumoperitoneum noted under right hemidaphragm. D/w CTS and Cards. Pt asymptomatic. No fevers or tachycardia. Denies any abdominal pain. 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 LVH with apparent volume responsiveness (hemodynamics seemed best with CVP approx 15 and PAD approx 20). DVT prophylaxis: Encourage increased activity, SHAWN hose. Pain following surgery or procedure 10/08/2013 10/14/2013 Overview: Pt w/multiple medication allergies. Reports adequate pain control on current regimen. Lidoderm patches discontinued and steroids are being tapered (started prophylactically for adhesive allergy). Will uptitrate regimen as needed. Hyperchloremic metabolic acidosis 10/08/2013 10/09/2013 Overview: 10/08/13 - slightly acidotic with elevated chloride. Anion pina = +14, delta-delta = -7. No hx or s/s of impaired renal function. Will continue to monitor for now, with plan to treat if hyperchloremia/acidosis persists or worsens Atelectasis/FVO/Pleural effusions 10/08/2013 04/30/2014 Overview: On RA. Wt 2.1 kg above pre-op. CXR: b/l atelectasis. Small effusions. Cont lasix for aggressive diuresis. Plan to continue home bronchodilators, Enc OOB, amb, C&DB, PEP. Mechanically assisted ventilation 10/07/2013 10/08/2013 Overview: 10/07/2013 Residual anesthesia still on board. Will WTE once fully awake and appropriate extubation criteria met, including adequate hemostasis. Acute blood loss anemia 10/07/2013 04/30/20 Overview: 10/07/2013 Intraop blood loss with last intraop Hgb of 10.4 Level is adequate for oxygen delivery. Presently minimal need for vasoactive hemodynamic support. Plan Monitor closely for additional bleeding or coagulopathy Fluid resuscitation as needed Consider blood products if acute decompensation or further bleeding, or with Hgb < 7. 10/09/13 - H/H stable, will continue to monitor Cardiac insufficiency following cardiac surgery 10/07/2013 10/09/2013 Overview: 10/07/2013 Immediately postop, needs low dose inotropic support with epinephrine as well as fluid resuscitation to ensure euvolemia (given her LVH and stage 2 diastolic dysfunction). Wean epi as tolerated. Avoid tachycardia 10/08/13 - wean Epi gtt, high fluid balance - begin lasix Stress hyperglycemia 10/07/2013 12/19/2016 Overview: No hx of DM. Will continue SSI to keep glucose < 160 in post-op period. Tapering steroids. Discharge Planning 10/06/2013 01/02/2014 Overview: Discharge today 10.14.2013. Lives in [facility] with . Scheduled appointment with [place] [facility] at 10:30 on [address] Kim at 11:30 on 10.16.2013. H/o Anxiety 10/06/2013 12/19/2016 Overview: Hx of anxiety. Takes ativan BID at home. Mood stable. Plan to continue as an inpatient and increase dose as needed ASA CLASS II 11/25/2002 11/06/2011 Aortic valve disorder 12/19/2016 Overview: Dr. Mckay documented as of this encounter (statuses as of 03/14/2022) [facility] History of Past illness Narrative* Problem Noted Date Resolved Date Pseudopolyp of ascending colon without complicat ion 05/15/2017 08/31/2020 Microscopic hematuria 05/17/2016 08/31/2020 Angiomyolipoma 05/17/2016 08/31/2020 Overview: Unchanged on recent ct scan Hyperdense renal cyst 05/17/2016 12/07/2021 Overview: Unchanged on recent ct scan Acute right-sided low back pain with right-sided sciatica 03/23/2016 12/19/2016 Pneumoperitoneum 10/10/2013 04/30/2014 Overview: CXR: Pneumoperitoneum noted under right hemidaphragm. D/w CTS and Cards. Pt asymptomatic. No fevers or tachycardia. Denies any abdominal pain. 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 LVH with apparent volume responsiveness (hemodynamics seemed best with CVP approx 15 and PAD approx 20). DVT prophylaxis: Encourage increased activity, SHAWN hose. Pain following surgery or procedure 10/08/2013 10/14/2013 Overview: Pt w/multiple medication allergies. Reports adequate pain control on current regimen. Lidoderm patches discontinued and steroids are being tapered (started prophylactically for adhesive allergy). Will uptitrate regimen as needed. Hyperchloremic metabolic acidosis 10/08/2013 10/09/2013 Overview: 10/08/13 - slightly acidotic with elevated chloride. Anion pina = +14, delta-delta = -7. No hx or s/s of impaired renal function. Will continue to monitor for now, with plan to treat if hyperchloremia/acidosis persists or worsens Atelectasis/FVO/Pleural effusions 10/08/2013 04/30/2014 Overview: On RA. Wt 2.1 kg above pre-op. CXR: b/l atelectasis. Small effusions. Cont lasix for aggressive diuresis. Plan to continue home bronchodilators, Enc OOB, amb, C&DB, PEP. Mechanically assisted ventilation 10/07/2013 10/08/2013 Overview: 10/07/2013 Residual anesthesia still on board. Will WTE once fully awake and appropriate extubation criteria met, including adequate hemostasis. Acute blood loss anemia 10/07/2013 04/30/20 Overview: 10/07/2013 Intraop blood loss with last intraop Hgb of 10.4 Level is adequate for oxygen delivery. Presently minimal need for vasoactive hemodynamic support. Plan Monitor closely for additional bleeding or coagulopathy Fluid resuscitation as needed Consider blood products if acute decompensation or further bleeding, or with Hgb < 7. 10/09/13 - H/H stable, will continue to monitor Cardiac insufficiency following cardiac surgery 10/07/2013 10/09/2013 Overview: 10/07/2013 Immediately postop, needs low dose inotropic support with epinephrine as well as fluid resuscitation to ensure euvolemia (given her LVH and stage 2 diastolic dysfunction). Wean epi as tolerated. Avoid tachycardia 10/08/13 - wean Epi gtt, high fluid balance - begin lasix Stress hyperglycemia 10/07/2013 12/19/2016 Overview: No hx of DM. Will continue SSI to keep glucose < 160 in post-op period. Tapering steroids. Discharge Planning 10/06/2013 01/02/2014 Overview: Discharge today 10.14.2013. Lives in [facility] with . Scheduled appointment with [place] [facility] at 10:30 on [address] Kim at 11:30 on 10.16.2013. H/o Anxiety 10/06/2013 12/19/2016 Overview: Hx of anxiety. Takes ativan BID at home. Mood stable. Plan to continue as an inpatient and increase dose as needed ASA CLASS II 11/25/2002 11/06/2011 Aortic valve disorder 12/19/2016 Overview: Dr. Mckay documented as of this encounter (statuses as of 03/16/2022) [facility] Past illness Narrative* Problem Noted Date Resolved Date Pseudopolyp of ascending colon without complicat ion 05/15/2017 08/31/2020 Microscopic hematuria 05/17/2016 08/31/2020 Angiomyolipoma 05/17/2016 08/31/2020 Overview: Unchanged on recent ct scan Hyperdense renal cyst 05/17/2016 12/07/2021 Overview: Unchanged on recent ct scan Acute right-sided low back pain with right-sided sciatica 03/23/2016 12/19/2016 Pneumoperitoneum 10/10/2013 04/30/2014 Overview: CXR: Pneumoperitoneum noted under right hemidaphragm. D/w CTS and Cards. Pt asymptomatic. No fevers or tachycardia. Denies any abdominal pain. 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 LVH with apparent volume responsiveness (hemodynamics seemed best with CVP approx 15 and PAD approx 20). DVT prophylaxis: Encourage increased activity, SHAWN hose. Pain following surgery or procedure 10/08/2013 10/14/2013 Overview: Pt w/multiple medication allergies. Reports adequate pain control on current regimen. Lidoderm patches discontinued and steroids are being tapered (started prophylactically for adhesive allergy). Will uptitrate regimen as needed. Hyperchloremic metabolic acidosis 10/08/2013 10/09/2013 Overview: 10/08/13 - slightly acidotic with elevated chloride. Anion pina = +14, delta-delta = -7. No hx or s/s of impaired renal function. Will continue to monitor for now, with plan to treat if hyperchloremia/acidosis persists or worsens Atelectasis/FVO/Pleural effusions 10/08/2013 04/30/2014 Overview: On RA. Wt 2.1 kg above pre-op. CXR: b/l atelectasis. Small effusions. Cont lasix for aggressive diuresis. Plan to continue home bronchodilators, Enc OOB, amb, C&DB, PEP. Mechanically assisted ventilation 10/07/2013 10/08/2013 Overview: 10/07/2013 Residual anesthesia still on board. Will WTE once fully awake and appropriate extubation criteria met, including adequate hemostasis. Acute blood loss anemia 10/07/2013 04/30/20 Overview: 10/07/2013 Intraop blood loss with last intraop Hgb of 10.4 Level is adequate for oxygen delivery. Presently minimal need for vasoactive hemodynamic support. Plan Monitor closely for additional bleeding or coagulopathy Fluid resuscitation as needed Consider blood products if acute decompensation or further bleeding, or with Hgb < 7. 10/09/13 - H/H stable, will continue to monitor Cardiac insufficiency following cardiac surgery 10/07/2013 10/09/2013 Overview: 10/07/2013 Immediately postop, needs low dose inotropic support with epinephrine as well as fluid resuscitation to ensure euvolemia (given her LVH and stage 2 diastolic dysfunction). Wean epi as tolerated. Avoid tachycardia 10/08/13 - wean Epi gtt, high fluid balance - begin lasix Stress hyperglycemia 10/07/2013 12/19/2016 Overview: No hx of DM. Will continue SSI to keep glucose < 160 in post-op period. Tapering steroids. Discharge Planning 10/06/2013 01/02/2014 Overview: Discharge today 10.14.2013. Lives in [facility] with . Scheduled appointment with [place] [facility] at 10:30 on [address] Kim at 11:30 on 10.16.2013. H/o Anxiety 10/06/2013 12/19/2016 Overview: Hx of anxiety. Takes ativan BID at home. Mood stable. Plan to continue as an inpatient and increase dose as needed ASA CLASS II 11/25/2002 11/06/2011 Aortic valve disorder 12/19/2016 Overview: Dr. Mckay documented as of this encounter (statuses as of 03/16/2022) [facility] Past illness Narrative* Problem Noted Date Resolved Date Pseudopolyp of ascending colon without complicat ion 05/15/2017 08/31/2020 Microscopic hematuria 05/17/2016 08/31/2020 Angiomyolipoma 05/17/2016 08/31/2020 Overview: Unchanged on recent ct scan Hyperdense renal cyst 05/17/2016 12/07/2021 Overview: Unchanged on recent ct scan Acute right-sided low back pain with right-sided sciatica 03/23/2016 12/19/2016 Pneumoperitoneum 10/10/2013 04/30/2014 Overview: CXR: Pneumoperitoneum noted under right hemidaphragm. D/w CTS and Cards. Pt asymptomatic. No fevers or tachycardia. Denies any abdominal pain. 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 LVH with apparent volume responsiveness (hemodynamics seemed best with CVP approx 15 and PAD approx 20). DVT prophylaxis: Encourage increased activity, SHAWN hose. Pain following surgery or procedure 10/08/2013 10/14/2013 Overview: Pt w/multiple medication allergies. Reports adequate pain control on current regimen. Lidoderm patches discontinued and steroids are being tapered (started prophylactically for adhesive allergy). Will uptitrate regimen as needed. Hyperchloremic metabolic acidosis 10/08/2013 10/09/2013 Overview: 10/08/13 - slightly acidotic with elevated chloride. Anion pina = +14, delta-delta = -7. No hx or s/s of impaired renal function. Will continue to monitor for now, with plan to treat if hyperchloremia/acidosis persists or worsens Atelectasis/FVO/Pleural effusions 10/08/2013 04/30/2014 Overview: On RA. Wt 2.1 kg above pre-op. CXR: b/l atelectasis. Small effusions. Cont lasix for aggressive diuresis. Plan to continue home bronchodilators, Enc OOB, amb, C&DB, PEP. Mechanically assisted ventilation 10/07/2013 10/08/2013 Overview: 10/07/2013 Residual anesthesia still on board. Will WTE once fully awake and appropriate extubation criteria met, including adequate hemostasis. Acute blood loss anemia 10/07/2013 04/30/20 Overview: 10/07/2013 Intraop blood loss with last intraop Hgb of 10.4 Level is adequate for oxygen delivery. Presently minimal need for vasoactive hemodynamic support. Plan Monitor closely for additional bleeding or coagulopathy Fluid resuscitation as needed Consider blood products if acute decompensation or further bleeding, or with Hgb < 7. 10/09/13 - H/H stable, will continue to monitor Cardiac insufficiency following cardiac surgery 10/07/2013 10/09/2013 Overview: 10/07/2013 Immediately postop, needs low dose inotropic support with epinephrine as well as fluid resuscitation to ensure euvolemia (given her LVH and stage 2 diastolic dysfunction). Wean epi as tolerated. Avoid tachycardia 10/08/13 - wean Epi gtt, high fluid balance - begin lasix Stress hyperglycemia 10/07/2013 12/19/2016 Overview: No hx of DM. Will continue SSI to keep glucose < 160 in post-op period. Tapering steroids. Discharge Planning 10/06/2013 01/02/2014 Overview: Discharge today 10.14.2013. Lives in [facility] with . Scheduled appointment with [place] [facility] at 10:30 on 10.[address] Kim at 11:30 on 10.16.2013. H/o Anxiety 10/06/2013 12/19/2016 Overview: Hx of anxiety. Takes ativan BID at home. Mood stable. Plan to continue as an inpatient and increase dose as needed ASA CLASS II 11/25/2002 11/06/2011 Aortic valve disorder 12/19/2016 Overview: Dr. Mckay documented as of this encounter (statuses as of 03/20/2022) [facility] History of Past illness Narrative* Problem Noted Date Resolved Date Pseudopolyp of ascending colon without complicat ion 05/15/2017 08/31/2020 Microscopic hematuria 05/17/2016 08/31/2020 Angiomyolipoma 05/17/2016 08/31/2020 Overview: Unchanged on recent ct scan Hyperdense renal cyst 05/17/2016 12/07/2021 Overview: Unchanged on recent ct scan Acute right-sided low back pain with right-sided sciatica 03/23/2016 12/19/2016 Pneumoperitoneum 10/10/2013 04/30/2014 Overview: CXR: Pneumoperitoneum noted under right hemidaphragm. D/w CTS and Cards. Pt asymptomatic. No fevers or tachycardia. Denies any abdominal pain. 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 LVH with apparent volume responsiveness (hemodynamics seemed best with CVP approx 15 and PAD approx 20). DVT prophylaxis: Encourage increased activity, SHAWN hose. Pain following surgery or procedure 10/08/2013 10/14/2013 Overview: Pt w/multiple medication allergies. Reports adequate pain control on current regimen. Lidoderm patches discontinued and steroids are being tapered (started prophylactically for adhesive allergy). Will uptitrate regimen as needed. Hyperchloremic metabolic acidosis 10/08/2013 10/09/2013 Overview: 10/08/13 - slightly acidotic with elevated chloride. Anion pina = +14, delta-delta = -7. No hx or s/s of impaired renal function. Will continue to monitor for now, with plan to treat if hyperchloremia/acidosis persists or worsens Atelectasis/FVO/Pleural effusions 10/08/2013 04/30/2014 Overview: On RA. Wt 2.1 kg above pre-op. CXR: b/l atelectasis. Small effusions. Cont lasix for aggressive diuresis. Plan to continue home bronchodilators, Enc OOB, amb, C&DB, PEP. Mechanically assisted ventilation 10/07/2013 10/08/2013 Overview: 10/07/2013 Residual anesthesia still on board. Will WTE once fully awake and appropriate extubation criteria met, including adequate hemostasis. Acute blood loss anemia 10/07/2013 04/30/20 Overview: 10/07/2013 Intraop blood loss with last intraop Hgb of 10.4 Level is adequate for oxygen delivery. Presently minimal need for vasoactive hemodynamic support. Plan Monitor closely for additional bleeding or coagulopathy Fluid resuscitation as needed Consider blood products if acute decompensation or further bleeding, or with Hgb < 7. 10/09/13 - H/H stable, will continue to monitor Cardiac insufficiency following cardiac surgery 10/07/2013 10/09/2013 Overview: 10/07/2013 Immediately postop, needs low dose inotropic support with epinephrine as well as fluid resuscitation to ensure euvolemia (given her LVH and stage 2 diastolic dysfunction). Wean epi as tolerated. Avoid tachycardia 10/08/13 - wean Epi gtt, high fluid balance - begin lasix Stress hyperglycemia 10/07/2013 12/19/2016 Overview: No hx of DM. Will continue SSI to keep glucose < 160 in post-op period. Tapering steroids. Discharge Planning 10/06/2013 01/02/2014 Overview: Discharge today 10.14.2013. Lives in [facility] with . Scheduled appointment with [place] [facility] at 10:30 on [address] Kim at 11:30 on 10.16.2013. H/o Anxiety 10/06/2013 12/19/2016 Overview: Hx of anxiety. Takes ativan BID at home. Mood stable. Plan to continue as an inpatient and increase dose as needed ASA CLASS II 11/25/2002 11/06/2011 Aortic valve disorder 12/19/2016 Overview: Dr. Mckay documented as of this encounter (statuses as of 03/21/2022) [facility] History of Past illness Narrative* Problem Noted Date Resolved Date Pseudopolyp of ascending colon without complicat ion 05/15/2017 08/31/2020 Microscopic hematuria 05/17/2016 08/31/2020 Angiomyolipoma 05/17/2016 08/31/2020 Overview: Unchanged on recent ct scan Hyperdense renal cyst 05/17/2016 12/07/2021 Overview: Unchanged on recent ct scan Acute right-sided low back pain with right-sided sciatica 03/23/2016 12/19/2016 Pneumoperitoneum 10/10/2013 04/30/2014 Overview: CXR: Pneumoperitoneum noted under right hemidaphragm. D/w CTS and Cards. Pt asymptomatic. No fevers or tachycardia. Denies any abdominal pain. 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 LVH with apparent volume responsiveness (hemodynamics seemed best with CVP approx 15 and PAD approx 20). DVT prophylaxis: Encourage increased activity, SHAWN hose. Pain following surgery or procedure 10/08/2013 10/14/2013 Overview: Pt w/multiple medication allergies. Reports adequate pain control on current regimen. Lidoderm patches discontinued and steroids are being tapered (started prophylactically for adhesive allergy). Will uptitrate regimen as needed. Hyperchloremic metabolic acidosis 10/08/2013 10/09/2013 Overview: 10/08/13 - slightly acidotic with elevated chloride. Anion pina = +14, delta-delta = -7. No hx or s/s of impaired renal function. Will continue to monitor for now, with plan to treat if hyperchloremia/acidosis persists or worsens Atelectasis/FVO/Pleural effusions 10/08/2013 04/30/2014 Overview: On RA. Wt 2.1 kg above pre-op. CXR: b/l atelectasis. Small effusions. Cont lasix for aggressive diuresis. Plan to continue home bronchodilators, Enc OOB, amb, C&DB, PEP. Mechanically assisted ventilation 10/07/2013 10/08/2013 Overview: 10/07/2013 Residual anesthesia still on board. Will WTE once fully awake and appropriate extubation criteria met, including adequate hemostasis. Acute blood loss anemia 10/07/2013 04/30/20 14 Overview: 10/07/2013 Intraop blood loss with last intraop Hgb of 10.4 Level is adequate for oxygen delivery. Presently minimal need for vasoactive hemodynamic support. Plan Monitor closely for additional bleeding or coagulopathy Fluid resuscitation as needed Consider blood products if acute decompensation or further bleeding, or with Hgb < 7. 10/09/13 - H/H stable, will continue to monitor Cardiac insufficiency following cardiac surgery 10/07/2013 10/09/2013 Overview: 10/07/2013 Immediately postop, needs low dose inotropic support with epinephrine as well as fluid resuscitation to ensure euvolemia (given her LVH and stage 2 diastolic dysfunction). Wean epi as tolerated. Avoid tachycardia 10/08/13 - wean Epi gtt, high fluid balance - begin lasix Stress hyperglycemia 10/07/2013 12/19/2016 Overview: No hx of DM. Will continue SSI to keep glucose < 160 in post-op period. Tapering steroids. Discharge Planning 10/06/2013 01/02/2014 Overview: Discharge today 10.14.2013. Lives in [facility] with . Scheduled appointment with [place] [facility] at 10:30 on 10.[address] Kim at 11:30 on 10.16.2013. H/o Anxiety 10/06/2013 12/19/2016 Overview: Hx of anxiety. Takes ativan BID at home. Mood stable. Plan to continue as an inpatient and increase dose as needed ASA CLASS II 11/25/2002 11/06/2011 Aortic valve disorder 12/19/2016 Overview: Dr. Mckay documented as of this encounter (statuses as of 03/28/2022) [facility] History of Past illness Narrative* Problem Noted Date Resolved Date Pseudopolyp of ascending colon without complicat ion 05/15/2017 08/31/2020 Microscopic hematuria 05/17/2016 08/31/2020 Angiomyolipoma 05/17/2016 08/31/2020 Overview: Unchanged on recent ct scan Hyperdense renal cyst 05/17/2016 12/07/2021 Overview: Unchanged on recent ct scan Acute right-sided low back pain with right-sided sciatica 03/23/2016 12/19/2016 Pneumoperitoneum 10/10/2013 04/30/2014 Overview: CXR: Pneumoperitoneum noted under right hemidaphragm. D/w CTS and Cards. Pt asymptomatic. No fevers or tachycardia. Denies any abdominal pain. 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 LVH with apparent volume responsiveness (hemodynamics seemed best with CVP approx 15 and PAD approx 20). DVT prophylaxis: Encourage increased activity, SHAWN hose. Pain following surgery or procedure 10/08/2013 10/14/2013 Overview: Pt w/multiple medication allergies. Reports adequate pain control on current regimen. Lidoderm patches discontinued and steroids are being tapered (started prophylactically for adhesive allergy). Will uptitrate regimen as needed. Hyperchloremic metabolic acidosis 10/08/2013 10/09/2013 Overview: 10/08/13 - slightly acidotic with elevated chloride. Anion pina = +14, delta-delta = -7. No hx or s/s of impaired renal function. Will continue to monitor for now, with plan to treat if hyperchloremia/acidosis persists or worsens Atelectasis/FVO/Pleural effusions 10/08/2013 04/30/2014 Overview: On RA. Wt 2.1 kg above pre-op. CXR: b/l atelectasis. Small effusions. Cont lasix for aggressive diuresis. Plan to continue home bronchodilators, Enc OOB, amb, C&DB, PEP. Mechanically assisted ventilation 10/07/2013 10/08/2013 Overview: 10/07/2013 Residual anesthesia still on board. Will WTE once fully awake and appropriate extubation criteria met, including adequate hemostasis. Acute blood loss anemia 10/07/2013 04/30/20 14 Overview: 10/07/2013 Intraop blood loss with last intraop Hgb of 10.4 Level is adequate for oxygen delivery. Presently minimal need for vasoactive hemodynamic support. Plan Monitor closely for additional bleeding or coagulopathy Fluid resuscitation as needed Consider blood products if acute decompensation or further bleeding, or with Hgb < 7. 10/09/13 - H/H stable, will continue to monitor Cardiac insufficiency following cardiac surgery 10/07/2013 10/09/2013 Overview: 10/07/2013 Immediately postop, needs low dose inotropic support with epinephrine as well as fluid resuscitation to ensure euvolemia (given her LVH and stage 2 diastolic dysfunction). Wean epi as tolerated. Avoid tachycardia 10/08/13 - wean Epi gtt, high fluid balance - begin lasix Stress hyperglycemia 10/07/2013 12/19/2016 Overview: No hx of DM. Will continue SSI to keep glucose < 160 in post-op period. Tapering steroids. Discharge Planning 10/06/2013 01/02/2014 Overview: Discharge today 10.14.2013. Lives in [facility] with . Scheduled appointment with [place] [facility] at 10:30 on [address] Kim at 11:30 on 10.16.2013. H/o Anxiety 10/06/2013 12/19/2016 Overview: Hx of anxiety. Takes ativan BID at home. Mood stable. Plan to continue as an inpatient and increase dose as needed ASA CLASS II 11/25/2002 11/06/2011 Aortic valve disorder 12/19/2016 Overview: Dr. Mckay documented as of this encounter (statuses as of 04/05/2022) [facility] History of Past illness Narrative* Problem Noted Date Resolved Date Pseudopolyp of ascending colon without complicat ion 05/15/2017 08/31/2020 Microscopic hematuria 05/17/2016 08/31/2020 Angiomyolipoma 05/17/2016 08/31/2020 Overview: Unchanged on recent ct scan Hyperdense renal cyst 05/17/2016 12/07/2021 Overview: Unchanged on recent ct scan Acute right-sided low back pain with right-sided sciatica 03/23/2016 12/19/2016 Pneumoperitoneum 10/10/2013 04/30/2014 Overview: CXR: Pneumoperitoneum noted under right hemidaphragm. D/w CTS and Cards. Pt asymptomatic. No fevers or tachycardia. Denies any abdominal pain. 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 LVH with apparent volume responsiveness (hemodynamics seemed best with CVP approx 15 and PAD approx 20). DVT prophylaxis: Encourage increased activity, SHAWN hose. Pain following surgery or procedure 10/08/2013 10/14/2013 Overview: Pt w/multiple medication allergies. Reports adequate pain control on current regimen. Lidoderm patches discontinued and steroids are being tapered (started prophylactically for adhesive allergy). Will uptitrate regimen as needed. Hyperchloremic metabolic acidosis 10/08/2013 10/09/2013 Overview: 10/08/13 - slightly acidotic with elevated chloride. Anion pina = +14, delta-delta = -7. No hx or s/s of impaired renal function. Will continue to monitor for now, with plan to treat if hyperchloremia/acidosis persists or worsens Atelectasis/FVO/Pleural effusions 10/08/2013 04/30/2014 Overview: On RA. Wt 2.1 kg above pre-op. CXR: b/l atelectasis. Small effusions. Cont lasix for aggressive diuresis. Plan to continue home bronchodilators, Enc OOB, amb, C&DB, PEP. Mechanically assisted ventilation 10/07/2013 10/08/2013 Overview: 10/07/2013 Residual anesthesia still on board. Will WTE once fully awake and appropriate extubation criteria met, including adequate hemostasis. Acute blood loss anemia 10/07/2013 04/30/20 Overview: 10/07/2013 Intraop blood loss with last intraop Hgb of 10.4 Level is adequate for oxygen delivery. Presently minimal need for vasoactive hemodynamic support. Plan Monitor closely for additional bleeding or coagulopathy Fluid resuscitation as needed Consider blood products if acute decompensation or further bleeding, or with Hgb < 7. 10/09/13 - H/H stable, will continue to monitor Cardiac insufficiency following cardiac surgery 10/07/2013 10/09/2013 Overview: 10/07/2013 Immediately postop, needs low dose inotropic support with epinephrine as well as fluid resuscitation to ensure euvolemia (given her LVH and stage 2 diastolic dysfunction). Wean epi as tolerated. Avoid tachycardia 10/08/13 - wean Epi gtt, high fluid balance - begin lasix Stress hyperglycemia 10/07/2013 12/19/2016 Overview: No hx of DM. Will continue SSI to keep glucose < 160 in post-op period. Tapering steroids. Discharge Planning 10/06/2013 01/02/2014 Overview: Discharge today 10.14.2013. Lives in [facility] with . Scheduled appointment with [place] [facility] at 10:30 on [address] Kim at 11:30 on 10.16.2013. H/o Anxiety 10/06/2013 12/19/2016 Overview: Hx of anxiety. Takes ativan BID at home. Mood stable. Plan to continue as an inpatient and increase dose as needed ASA CLASS II 11/25/2002 11/06/2011 Aortic valve disorder 12/19/2016 Overview: Dr. Mckay documented as of this encounter (statuses as of 04/11/2022) [facility] History of Past illness Narrative* Problem Noted Date Resolved Date Pseudopolyp of ascending colon without complicat ion 05/15/2017 08/31/2020 Microscopic hematuria 05/17/2016 08/31/2020 Angiomyolipoma 05/17/2016 08/31/2020 Overview: Unchanged on recent ct scan Hyperdense renal cyst 05/17/2016 12/07/2021 Overview: Unchanged on recent ct scan Acute right-sided low back pain with right-sided sciatica 03/23/2016 12/19/2016 Pneumoperitoneum 10/10/2013 04/30/2014 Overview: CXR: Pneumoperitoneum noted under right hemidaphragm. D/w CTS and Cards. Pt asymptomatic. No fevers or tachycardia. Denies any abdominal pain. 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 LVH with apparent volume responsiveness (hemodynamics seemed best with CVP approx 15 and PAD approx 20). DVT prophylaxis: Encourage increased activity, SHAWN hose. Pain following surgery or procedure 10/08/2013 10/14/2013 Overview: Pt w/multiple medication allergies. Reports adequate pain control on current regimen. Lidoderm patches discontinued and steroids are being tapered (started prophylactically for adhesive allergy). Will uptitrate regimen as needed. Hyperchloremic metabolic acidosis 10/08/2013 10/09/2013 Overview: 10/08/13 - slightly acidotic with elevated chloride. Anion pina = +14, delta-delta = -7. No hx or s/s of impaired renal function. Will continue to monitor for now, with plan to treat if hyperchloremia/acidosis persists or worsens Atelectasis/FVO/Pleural effusions 10/08/2013 04/30/2014 Overview: On RA. Wt 2.1 kg above pre-op. CXR: b/l atelectasis. Small effusions. Cont lasix for aggressive diuresis. Plan to continue home bronchodilators, Enc OOB, amb, C&DB, PEP. Mechanically assisted ventilation 10/07/2013 10/08/2013 Overview: 10/07/2013 Residual anesthesia still on board. Will WTE once fully awake and appropriate extubation criteria met, including adequate hemostasis. Acute blood loss anemia 10/07/2013 04/30/20 Overview: 10/07/2013 Intraop blood loss with last intraop Hgb of 10.4 Level is adequate for oxygen delivery. Presently minimal need for vasoactive hemodynamic support. Plan Monitor closely for additional bleeding or coagulopathy Fluid resuscitation as needed Consider blood products if acute decompensation or further bleeding, or with Hgb < 7. 10/09/13 - H/H stable, will continue to monitor Cardiac insufficiency following cardiac surgery 10/07/2013 10/09/2013 Overview: 10/07/2013 Immediately postop, needs low dose inotropic support with epinephrine as well as fluid resuscitation to ensure euvolemia (given her LVH and stage 2 diastolic dysfunction). Wean epi as tolerated. Avoid tachycardia 10/08/13 - wean Epi gtt, high fluid balance - begin lasix Stress hyperglycemia 10/07/2013 12/19/2016 Overview: No hx of DM. Will continue SSI to keep glucose < 160 in post-op period. Tapering steroids. Discharge Planning 10/06/2013 01/02/2014 Overview: Discharge today 10.14.2013. Lives in [facility] with . Scheduled appointment with [place] [facility] at 10:30 on [address] Kim at 11:30 on 10.16.2013. H/o Anxiety 10/06/2013 12/19/2016 Overview: Hx of anxiety. Takes ativan BID at home. Mood stable. Plan to continue as an inpatient and increase dose as needed ASA CLASS II 11/25/2002 11/06/2011 Aortic valve disorder 12/19/2016 Overview: Dr. Mckay documented as of this encounter (statuses as of 04/19/2022) [facility] of Past illness Narrative* Problem Noted Date Resolved Date Pseudopolyp of ascending colon without complicat ion 05/15/2017 08/31/2020 Microscopic hematuria 05/17/2016 08/31/2020 Angiomyolipoma 05/17/2016 08/31/2020 Overview: Unchanged on recent ct scan Hyperdense renal cyst 05/17/2016 12/07/2021 Overview: Unchanged on recent ct scan Acute right-sided low back pain with right-sided sciatica 03/23/2016 12/19/2016 Pneumoperitoneum 10/10/2013 04/30/2014 Overview: CXR: Pneumoperitoneum noted under right hemidaphragm. D/w CTS and Cards. Pt asymptomatic. No fevers or tachycardia. Denies any abdominal pain. 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 LVH with apparent volume responsiveness (hemodynamics seemed best with CVP approx 15 and PAD approx 20). DVT prophylaxis: Encourage increased activity, SHAWN hose. Pain following surgery or procedure 10/08/2013 10/14/2013 Overview: Pt w/multiple medication allergies. Reports adequate pain control on current regimen. Lidoderm patches discontinued and steroids are being tapered (started prophylactically for adhesive allergy). Will uptitrate regimen as needed. Hyperchloremic metabolic acidosis 10/08/2013 10/09/2013 Overview: 10/08/13 - slightly acidotic with elevated chloride. Anion pina = +14, delta-delta = -7. No hx or s/s of impaired renal function. Will continue to monitor for now, with plan to treat if hyperchloremia/acidosis persists or worsens Atelectasis/FVO/Pleural effusions 10/08/2013 04/30/2014 Overview: On RA. Wt 2.1 kg above pre-op. CXR: b/l atelectasis. Small effusions. Cont lasix for aggressive diuresis. Plan to continue home bronchodilators, Enc OOB, amb, C&DB, PEP. Mechanically assisted ventilation 10/07/2013 10/08/2013 Overview: 10/07/2013 Residual anesthesia still on board. Will WTE once fully awake and appropriate extubation criteria met, including adequate hemostasis. Acute blood loss anemia 10/07/2013 04/30/20 Overview: 10/07/2013 Intraop blood loss with last intraop Hgb of 10.4 Level is adequate for oxygen delivery. Presently minimal need for vasoactive hemodynamic support. Plan Monitor closely for additional bleeding or coagulopathy Fluid resuscitation as needed Consider blood products if acute decompensation or further bleeding, or with Hgb < 7. 10/09/13 - H/H stable, will continue to monitor Cardiac insufficiency following cardiac surgery 10/07/2013 10/09/2013 Overview: 10/07/2013 Immediately postop, needs low dose inotropic support with epinephrine as well as fluid resuscitation to ensure euvolemia (given her LVH and stage 2 diastolic dysfunction). Wean epi as tolerated. Avoid tachycardia 10/08/13 - wean Epi gtt, high fluid balance - begin lasix Stress hyperglycemia 10/07/2013 12/19/2016 Overview: No hx of DM. Will continue SSI to keep glucose < 160 in post-op period. Tapering steroids. Discharge Planning 10/06/2013 01/02/2014 Overview: Discharge today 10.14.2013. Lives in [facility] with . Scheduled appointment with [place] [facility] at 10:30 on 10.[address] Kim at 11:30 on 10.16.2013. H/o Anxiety 10/06/2013 12/19/2016 Overview: Hx of anxiety. Takes ativan BID at home. Mood stable. Plan to continue as an inpatient and increase dose as needed ASA CLASS II 11/25/2002 11/06/2011 Aortic valve disorder 12/19/2016 Overview: Dr. Mckay documented as of this encounter (statuses as of 04/25/2022) [facility] History of Past illness Narrative* Problem Noted Date Resolved Date Pseudopolyp of ascending colon without complicat ion 05/15/2017 08/31/2020 Microscopic hematuria 05/17/2016 08/31/2020 Angiomyolipoma 05/17/2016 08/31/2020 Overview: Unchanged on recent ct scan Hyperdense renal cyst 05/17/2016 12/07/2021 Overview: Unchanged on recent ct scan Acute right-sided low back pain with right-sided sciatica 03/23/2016 12/19/2016 Pneumoperitoneum 10/10/2013 04/30/2014 Overview: CXR: Pneumoperitoneum noted under right hemidaphragm. D/w CTS and Cards. Pt asymptomatic. No fevers or tachycardia. Denies any abdominal pain. 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 LVH with apparent volume responsiveness (hemodynamics seemed best with CVP approx 15 and PAD approx 20). DVT prophylaxis: Encourage increased activity, SHAWN hose. Pain following surgery or procedure 10/08/2013 10/14/2013 Overview: Pt w/multiple medication allergies. Reports adequate pain control on current regimen. Lidoderm patches discontinued and steroids are being tapered (started prophylactically for adhesive allergy). Will uptitrate regimen as needed. Hyperchloremic metabolic acidosis 10/08/2013 10/09/2013 Overview: 10/08/13 - slightly acidotic with elevated chloride. Anion pnia = +14, delta-delta = -7. No hx or s/s of impaired renal function. Will continue to monitor for now, with plan to treat if hyperchloremia/acidosis persists or worsens Atelectasis/FVO/Pleural effusions 10/08/2013 04/30/2014 Overview: On RA. Wt 2.1 kg above pre-op. CXR: b/l atelectasis. Small effusions. Cont lasix for aggressive diuresis. Plan to continue home bronchodilators, Enc OOB, amb, C&DB, PEP. Mechanically assisted ventilation 10/07/2013 10/08/2013 Overview: 10/07/2013 Residual anesthesia still on board. Will WTE once fully awake and appropriate extubation criteria met, including adequate hemostasis. Acute blood loss anemia 10/07/2013 04/30/20 14 Overview: 10/07/2013 Intraop blood loss with last intraop Hgb of 10.4 Level is adequate for oxygen delivery. Presently minimal need for vasoactive hemodynamic support. Plan Monitor closely for additional bleeding or coagulopathy Fluid resuscitation as needed Consider blood products if acute decompensation or further bleeding, or with Hgb < 7. 10/09/13 - H/H stable, will continue to monitor Cardiac insufficiency following cardiac surgery 10/07/2013 10/09/2013 Overview: 10/07/2013 Immediately postop, needs low dose inotropic support with epinephrine as well as fluid resuscitation to ensure euvolemia (given her LVH and stage 2 diastolic dysfunction). Wean epi as tolerated. Avoid tachycardia 10/08/13 - wean Epi gtt, high fluid balance - begin lasix Stress hyperglycemia 10/07/2013 12/19/2016 Overview: No hx of DM. Will continue SSI to keep glucose < 160 in post-op period. Tapering steroids. Discharge Planning 10/06/2013 01/02/2014 Overview: Discharge today 10.14.2013. Lives in [facility] with . Scheduled appointment with [place] [facility] at 10:30 on [address] Kim at 11:30 on 10.16.2013. H/o Anxiety 10/06/2013 12/19/2016 Overview: Hx of anxiety. Takes ativan BID at home. Mood stable. Plan to continue as an inpatient and increase dose as needed ASA CLASS II 11/25/2002 11/06/2011 Aortic valve disorder 12/19/2016 Overview: Dr. Mckay documented as of this encounter (statuses as of 05/02/2022) [facility] History of Past illness Narrative* Problem Noted Date Resolved Date Pseudopolyp of ascending colon without complicat ion 05/15/2017 08/31/2020 Microscopic hematuria 05/17/2016 08/31/2020 Angiomyolipoma 05/17/2016 08/31/2020 Overview: Unchanged on recent ct scan Hyperdense renal cyst 05/17/2016 12/07/2021 Overview: Unchanged on recent ct scan Acute right-sided low back pain with right-sided sciatica 03/23/2016 12/19/2016 Pneumoperitoneum 10/10/2013 04/30/2014 Overview: CXR: Pneumoperitoneum noted under right hemidaphragm. D/w CTS and Cards. Pt asymptomatic. No fevers or tachycardia. Denies any abdominal pain. 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 LVH with apparent volume responsiveness (hemodynamics seemed best with CVP approx 15 and PAD approx 20). DVT prophylaxis: Encourage increased activity, SHAWN hose. Pain following surgery or procedure 10/08/2013 10/14/2013 Overview: Pt w/multiple medication allergies. Reports adequate pain control on current regimen. Lidoderm patches discontinued and steroids are being tapered (started prophylactically for adhesive allergy). Will uptitrate regimen as needed. Hyperchloremic metabolic acidosis 10/08/2013 10/09/2013 Overview: 10/08/13 - slightly acidotic with elevated chloride. Anion pina = +14, delta-delta = -7. No hx or s/s of impaired renal function. Will continue to monitor for now, with plan to treat if hyperchloremia/acidosis persists or worsens Atelectasis/FVO/Pleural effusions 10/08/2013 04/30/2014 Overview: On RA. Wt 2.1 kg above pre-op. CXR: b/l atelectasis. Small effusions. Cont lasix for aggressive diuresis. Plan to continue home bronchodilators, Enc OOB, amb, C&DB, PEP. Mechanically assisted ventilation 10/07/2013 10/08/2013 Overview: 10/07/2013 Residual anesthesia still on board. Will WTE once fully awake and appropriate extubation criteria met, including adequate hemostasis. Acute blood loss anemia 10/07/2013 04/30/20 Overview: 10/07/2013 Intraop blood loss with last intraop Hgb of 10.4 Level is adequate for oxygen delivery. Presently minimal need for vasoactive hemodynamic support. Plan Monitor closely for additional bleeding or coagulopathy Fluid resuscitation as needed Consider blood products if acute decompensation or further bleeding, or with Hgb < 7. 10/09/13 - H/H stable, will continue to monitor Cardiac insufficiency following cardiac surgery 10/07/2013 10/09/2013 Overview: 10/07/2013 Immediately postop, needs low dose inotropic support with epinephrine as well as fluid resuscitation to ensure euvolemia (given her LVH and stage 2 diastolic dysfunction). Wean epi as tolerated. Avoid tachycardia 10/08/13 - wean Epi gtt, high fluid balance - begin lasix Stress hyperglycemia 10/07/2013 12/19/2016 Overview: No hx of DM. Will continue SSI to keep glucose < 160 in post-op period. Tapering steroids. Discharge Planning 10/06/2013 01/02/2014 Overview: Discharge today 10.14.2013. Lives in [facility] with . Scheduled appointment with [place] [facility] at 10:30 on 10.[address] Kim at 11:30 on 10.16.2013. H/o Anxiety 10/06/2013 12/19/2016 Overview: Hx of anxiety. Takes ativan BID at home. Mood stable. Plan to continue as an inpatient and increase dose as needed ASA CLASS II 11/25/2002 11/06/2011 Aortic valve disorder 12/19/2016 Overview: Dr. Mckay documented as of this encounter (statuses as of 05/05/2022) [facility] History of Past illness Narrative* Problem Noted Date Resolved Date Pseudopolyp of ascending colon without complicat ion 05/15/2017 08/31/2020 Microscopic hematuria 05/17/2016 08/31/2020 Angiomyolipoma 05/17/2016 08/31/2020 Overview: Unchanged on recent ct scan Hyperdense renal cyst 05/17/2016 12/07/2021 Overview: Unchanged on recent ct scan Acute right-sided low back pain with right-sided sciatica 03/23/2016 12/19/2016 Pneumoperitoneum 10/10/2013 04/30/2014 Overview: CXR: Pneumoperitoneum noted under right hemidaphragm. D/w CTS and Cards. Pt asymptomatic. No fevers or tachycardia. Denies any abdominal pain. 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 LVH with apparent volume responsiveness (hemodynamics seemed best with CVP approx 15 and PAD approx 20). DVT prophylaxis: Encourage increased activity, SHAWN hose. Pain following surgery or procedure 10/08/2013 10/14/2013 Overview: Pt w/multiple medication allergies. Reports adequate pain control on current regimen. Lidoderm patches discontinued and steroids are being tapered (started prophylactically for adhesive allergy). Will uptitrate regimen as needed. Hyperchloremic metabolic acidosis 10/08/2013 10/09/2013 Overview: 10/08/13 - slightly acidotic with elevated chloride. Anion pina = +14, delta-delta = -7. No hx or s/s of impaired renal function. Will continue to monitor for now, with plan to treat if hyperchloremia/acidosis persists or worsens Atelectasis/FVO/Pleural effusions 10/08/2013 04/30/2014 Overview: On RA. Wt 2.1 kg above pre-op. CXR: b/l atelectasis. Small effusions. Cont lasix for aggressive diuresis. Plan to continue home bronchodilators, Enc OOB, amb, C&DB, PEP. Mechanically assisted ventilation 10/07/2013 10/08/2013 Overview: 10/07/2013 Residual anesthesia still on board. Will WTE once fully awake and appropriate extubation criteria met, including adequate hemostasis. Acute blood loss anemia 10/07/2013 04/30/20 Overview: 10/07/2013 Intraop blood loss with last intraop Hgb of 10.4 Level is adequate for oxygen delivery. Presently minimal need for vasoactive hemodynamic support. Plan Monitor closely for additional bleeding or coagulopathy Fluid resuscitation as needed Consider blood products if acute decompensation or further bleeding, or with Hgb < 7. 10/09/13 - H/H stable, will continue to monitor Cardiac insufficiency following cardiac surgery 10/07/2013 10/09/2013 Overview: 10/07/2013 Immediately postop, needs low dose inotropic support with epinephrine as well as fluid resuscitation to ensure euvolemia (given her LVH and stage 2 diastolic dysfunction). Wean epi as tolerated. Avoid tachycardia 10/08/13 - wean Epi gtt, high fluid balance - begin lasix Stress hyperglycemia 10/07/2013 12/19/2016 Overview: No hx of DM. Will continue SSI to keep glucose < 160 in post-op period. Tapering steroids. Discharge Planning 10/06/2013 01/02/2014 Overview: Discharge today 10.14.2013. Lives in [facility] with . Scheduled appointment with [place] [facility] at 10:30 on [address] Kim at 11:30 on 10.16.2013. H/o Anxiety 10/06/2013 12/19/2016 Overview: Hx of anxiety. Takes ativan BID at home. Mood stable. Plan to continue as an inpatient and increase dose as needed ASA CLASS II 11/25/2002 11/06/2011 Aortic valve disorder 12/19/2016 Overview: Dr. Mckay documented as of this encounter (statuses as of 05/10/2022) [facility] History of Past illness Narrative* Problem Noted Date Resolved Date Pseudopolyp of ascending colon without complicat ion 05/15/2017 08/31/2020 Microscopic hematuria 05/17/2016 08/31/2020 Angiomyolipoma 05/17/2016 08/31/2020 Overview: Unchanged on recent ct scan Hyperdense renal cyst 05/17/2016 12/07/2021 Overview: Unchanged on recent ct scan Acute right-sided low back pain with right-sided sciatica 03/23/2016 12/19/2016 Pneumoperitoneum 10/10/2013 04/30/2014 Overview: CXR: Pneumoperitoneum noted under right hemidaphragm. D/w CTS and Cards. Pt asymptomatic. No fevers or tachycardia. Denies any abdominal pain. 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 LVH with apparent volume responsiveness (hemodynamics seemed best with CVP approx 15 and PAD approx 20). DVT prophylaxis: Encourage increased activity, SHAWN hose. Pain following surgery or procedure 10/08/2013 10/14/2013 Overview: Pt w/multiple medication allergies. Reports adequate pain control on current regimen. Lidoderm patches discontinued and steroids are being tapered (started prophylactically for adhesive allergy). Will uptitrate regimen as needed. Hyperchloremic metabolic acidosis 10/08/2013 10/09/2013 Overview: 10/08/13 - slightly acidotic with elevated chloride. Anion pina = +14, delta-delta = -7. No hx or s/s of impaired renal function. Will continue to monitor for now, with plan to treat if hyperchloremia/acidosis persists or worsens Atelectasis/FVO/Pleural effusions 10/08/2013 04/30/2014 Overview: On RA. Wt 2.1 kg above pre-op. CXR: b/l atelectasis. Small effusions. Cont lasix for aggressive diuresis. Plan to continue home bronchodilators, Enc OOB, amb, C&DB, PEP. Mechanically assisted ventilation 10/07/2013 10/08/2013 Overview: 10/07/2013 Residual anesthesia still on board. Will WTE once fully awake and appropriate extubation criteria met, including adequate hemostasis. Acute blood loss anemia 10/07/2013 04/30/20 Overview: 10/07/2013 Intraop blood loss with last intraop Hgb of 10.4 Level is adequate for oxygen delivery. Presently minimal need for vasoactive hemodynamic support. Plan Monitor closely for additional bleeding or coagulopathy Fluid resuscitation as needed Consider blood products if acute decompensation or further bleeding, or with Hgb < 7. 10/09/13 - H/H stable, will continue to monitor Cardiac insufficiency following cardiac surgery 10/07/2013 10/09/2013 Overview: 10/07/2013 Immediately postop, needs low dose inotropic support with epinephrine as well as fluid resuscitation to ensure euvolemia (given her LVH and stage 2 diastolic dysfunction). Wean epi as tolerated. Avoid tachycardia 10/08/13 - wean Epi gtt, high fluid balance - begin lasix Stress hyperglycemia 10/07/2013 12/19/2016 Overview: No hx of DM. Will continue SSI to keep glucose < 160 in post-op period. Tapering steroids. Discharge Planning 10/06/2013 01/02/2014 Overview: Discharge today 10.14.2013. Lives in [facility] with . Scheduled appointment with [place] [facility] at 10:30 on [address] Kim at 11:30 on 10.16.2013. H/o Anxiety 10/06/2013 12/19/2016 Overview: Hx of anxiety. Takes ativan BID at home. Mood stable. Plan to continue as an inpatient and increase dose as needed ASA CLASS II 11/25/2002 11/06/2011 Aortic valve disorder 12/19/2016 Overview: Dr. Mckay documented as of this encounter (statuses as of 05/11/2022) [facility] History of Past illness Narrative* Problem Noted Date Resolved Date Pseudopolyp of ascending colon without complicat ion 05/15/2017 08/31/2020 Microscopic hematuria 05/17/2016 08/31/2020 Angiomyolipoma 05/17/2016 08/31/2020 Overview: Unchanged on recent ct scan Hyperdense renal cyst 05/17/2016 12/07/2021 Overview: Unchanged on recent ct scan Acute right-sided low back pain with right-sided sciatica 03/23/2016 12/19/2016 Pneumoperitoneum 10/10/2013 04/30/2014 Overview: CXR: Pneumoperitoneum noted under right hemidaphragm. D/w CTS and Cards. Pt asymptomatic. No fevers or tachycardia. Denies any abdominal pain. 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 LVH with apparent volume responsiveness (hemodynamics seemed best with CVP approx 15 and PAD approx 20). DVT prophylaxis: Encourage increased activity, SHAWN hose. Pain following surgery or procedure 10/08/2013 10/14/2013 Overview: Pt w/multiple medication allergies. Reports adequate pain control on current regimen. Lidoderm patches discontinued and steroids are being tapered (started prophylactically for adhesive allergy). Will uptitrate regimen as needed. Hyperchloremic metabolic acidosis 10/08/2013 10/09/2013 Overview: 10/08/13 - slightly acidotic with elevated chloride. Anion pina = +14, delta-delta = -7. No hx or s/s of impaired renal function. Will continue to monitor for now, with plan to treat if hyperchloremia/acidosis persists or worsens Atelectasis/FVO/Pleural effusions 10/08/2013 04/30/2014 Overview: On RA. Wt 2.1 kg above pre-op. CXR: b/l atelectasis. Small effusions. Cont lasix for aggressive diuresis. Plan to continue home bronchodilators, Enc OOB, amb, C&DB, PEP. Mechanically assisted ventilation 10/07/2013 10/08/2013 Overview: 10/07/2013 Residual anesthesia still on board. Will WTE once fully awake and appropriate extubation criteria met, including adequate hemostasis. Acute blood loss anemia 10/07/2013 04/30/20 Overview: 10/07/2013 Intraop blood loss with last intraop Hgb of 10.4 Level is adequate for oxygen delivery. Presently minimal need for vasoactive hemodynamic support. Plan Monitor closely for additional bleeding or coagulopathy Fluid resuscitation as needed Consider blood products if acute decompensation or further bleeding, or with Hgb < 7. 10/09/13 - H/H stable, will continue to monitor Cardiac insufficiency following cardiac surgery 10/07/2013 10/09/2013 Overview: 10/07/2013 Immediately postop, needs low dose inotropic support with epinephrine as well as fluid resuscitation to ensure euvolemia (given her LVH and stage 2 diastolic dysfunction). Wean epi as tolerated. Avoid tachycardia 10/08/13 - wean Epi gtt, high fluid balance - begin lasix Stress hyperglycemia 10/07/2013 12/19/2016 Overview: No hx of DM. Will continue SSI to keep glucose < 160 in post-op period. Tapering steroids. Discharge Planning 10/06/2013 01/02/2014 Overview: Discharge today 10.14.2013. Lives in [facility] with . Scheduled appointment with [place] [facility] at 10:30 on [address] Kim at 11:30 on 10.16.2013. H/o Anxiety 10/06/2013 12/19/2016 Overview: Hx of anxiety. Takes ativan BID at home. Mood stable. Plan to continue as an inpatient and increase dose as needed ASA CLASS II 11/25/2002 11/06/2011 Aortic valve disorder 12/19/2016 Overview: Dr. Mckay documented as of this encounter (statuses as of 05/17/2022) [facility] Past illness Narrative* Problem Noted Date Resolved Date Pseudopolyp of ascending colon without complicat ion 05/15/2017 08/31/2020 Microscopic hematuria 05/17/2016 08/31/2020 Angiomyolipoma 05/17/2016 08/31/2020 Overview: Unchanged on recent ct scan Hyperdense renal cyst 05/17/2016 12/07/2021 Overview: Unchanged on recent ct scan Acute right-sided low back pain with right-sided sciatica 03/23/2016 12/19/2016 Pneumoperitoneum 10/10/2013 04/30/2014 Overview: CXR: Pneumoperitoneum noted under right hemidaphragm. D/w CTS and Cards. Pt asymptomatic. No fevers or tachycardia. Denies any abdominal pain. 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 LVH with apparent volume responsiveness (hemodynamics seemed best with CVP approx 15 and PAD approx 20). DVT prophylaxis: Encourage increased activity, SHAWN hose. Pain following surgery or procedure 10/08/2013 10/14/2013 Overview: Pt w/multiple medication allergies. Reports adequate pain control on current regimen. Lidoderm patches discontinued and steroids are being tapered (started prophylactically for adhesive allergy). Will uptitrate regimen as needed. Hyperchloremic metabolic acidosis 10/08/2013 10/09/2013 Overview: 10/08/13 - slightly acidotic with elevated chloride. Anion pina = +14, delta-delta = -7. No hx or s/s of impaired renal function. Will continue to monitor for now, with plan to treat if hyperchloremia/acidosis persists or worsens Atelectasis/FVO/Pleural effusions 10/08/2013 04/30/2014 Overview: On RA. Wt 2.1 kg above pre-op. CXR: b/l atelectasis. Small effusions. Cont lasix for aggressive diuresis. Plan to continue home bronchodilators, Enc OOB, amb, C&DB, PEP. Mechanically assisted ventilation 10/07/2013 10/08/2013 Overview: 10/07/2013 Residual anesthesia still on board. Will WTE once fully awake and appropriate extubation criteria met, including adequate hemostasis. Acute blood loss anemia 10/07/2013 04/30/20 Overview: 10/07/2013 Intraop blood loss with last intraop Hgb of 10.4 Level is adequate for oxygen delivery. Presently minimal need for vasoactive hemodynamic support. Plan Monitor closely for additional bleeding or coagulopathy Fluid resuscitation as needed Consider blood products if acute decompensation or further bleeding, or with Hgb < 7. 10/09/13 - H/H stable, will continue to monitor Cardiac insufficiency following cardiac surgery 10/07/2013 10/09/2013 Overview: 10/07/2013 Immediately postop, needs low dose inotropic support with epinephrine as well as fluid resuscitation to ensure euvolemia (given her LVH and stage 2 diastolic dysfunction). Wean epi as tolerated. Avoid tachycardia 10/08/13 - wean Epi gtt, high fluid balance - begin lasix Stress hyperglycemia 10/07/2013 12/19/2016 Overview: No hx of DM. Will continue SSI to keep glucose < 160 in post-op period. Tapering steroids. Discharge Planning 10/06/2013 01/02/2014 Overview: Discharge today 10.14.2013. Lives in [facility] with . Scheduled appointment with [place] [facility] at 10:30 on [address] Kim at 11:30 on 10.16.2013. H/o Anxiety 10/06/2013 12/19/2016 Overview: Hx of anxiety. Takes ativan BID at home. Mood stable. Plan to continue as an inpatient and increase dose as needed ASA CLASS II 11/25/2002 11/06/2011 Aortic valve disorder 12/19/2016 Overview: Dr. Mckay documented as of this encounter (statuses as of 05/20/2022) [facility] Past [facility] Narrative* Problem Noted Date Resolved Date Pseudopolyp of ascending colon without complicat ion 05/15/2017 08/31/2020 Microscopic hematuria 05/17/2016 08/31/2020 Angiomyolipoma 05/17/2016 08/31/2020 Overview: Unchanged on recent ct scan Hyperdense renal cyst 05/17/2016 12/07/2021 Overview: Unchanged on recent ct scan Acute right-sided low back pain with right-sided sciatica 03/23/2016 12/19/2016 Pneumoperitoneum 10/10/2013 04/30/2014 Overview: CXR: Pneumoperitoneum noted under right hemidaphragm. D/w CTS and Cards. Pt asymptomatic. No fevers or tachycardia. Denies any abdominal pain. 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 LVH with apparent volume responsiveness (hemodynamics seemed best with CVP approx 15 and PAD approx 20). DVT prophylaxis: Encourage increased activity, SHAWN vivar. Pain following surgery or procedure 10/08/2013 10/14/2013 Overview: Pt w/multiple medication allergies. Reports adequate pain control on current regimen. Lidoderm patches discontinued and steroids are being tapered (started prophylactically for adhesive allergy). Will uptitrate regimen as needed. Hyperchloremic metabolic acidosis 10/08/2013 10/09/2013 Overview: 10/08/13 - slightly acidotic with elevated chloride. Anion pina = +14, delta-delta = -7. No hx or s/s of impaired renal function. Will continue to monitor for now, with plan to treat if hyperchloremia/acidosis persists or worsens Atelectasis/FVO/Pleural effusions 10/08/2013 04/30/2014 Overview: On RA. Wt 2.1 kg above pre-op. CXR: b/l atelectasis. Small effusions. Cont lasix for aggressive diuresis. Plan to continue home bronchodilators, Enc OOB, amb, C&DB, PEP. Mechanically assisted ventilation 10/07/2013 10/08/2013 Overview: 10/07/2013 Residual anesthesia still on board. Will WTE once fully awake and appropriate extubation criteria met, including adequate hemostasis. Acute blood loss anemia 10/07/2013 04/30/20 14 Overview: 10/07/2013 Intraop blood loss with last intraop Hgb of 10.4 Level is adequate for oxygen delivery. Presently minimal need for vasoactive hemodynamic support. Plan Monitor closely for additional bleeding or coagulopathy Fluid resuscitation as needed Consider blood products if acute decompensation or further bleeding, or with Hgb < 7. 10/09/13 - H/H stable, will continue to monitor Cardiac insufficiency following cardiac surgery 10/07/2013 10/09/2013 Overview: 10/07/2013 Immediately postop, needs low dose inotropic support with epinephrine as well as fluid resuscitation to ensure euvolemia (given her LVH and stage 2 diastolic dysfunction). Wean epi as tolerated. Avoid tachycardia 10/08/13 - wean Epi gtt, high fluid balance - begin lasix Stress hyperglycemia 10/07/2013 12/19/2016 Overview: No hx of DM. Will continue SSI to keep glucose < 160 in post-op period. Tapering steroids. Discharge Planning 10/06/2013 01/02/2014 Overview: Discharge today 10.14.2013. Lives in [facility] with . Scheduled appointment with [place] [facility] at 10:30 on 10.[address] Kim at 11:30 on 10.16.2013. H/o Anxiety 10/06/2013 12/19/2016 Overview: Hx of anxiety. Takes ativan BID at home. Mood stable. Plan to continue as an inpatient and increase dose as needed ASA CLASS II 11/25/2002 11/06/2011 Aortic valve disorder 12/19/2016 Overview: Dr. Mckay documented as of this encounter (statuses as of 05/25/2022) [facility] History of Past illness Narrative* Problem Noted Date Resolved Date Pseudopolyp of ascending colon without complicat ion 05/15/2017 08/31/2020 Microscopic hematuria 05/17/2016 08/31/2020 Angiomyolipoma 05/17/2016 08/31/2020 Overview: Unchanged on recent ct scan Hyperdense renal cyst 05/17/2016 12/07/2021 Overview: Unchanged on recent ct scan Acute right-sided low back pain with right-sided sciatica 03/23/2016 12/19/2016 Pneumoperitoneum 10/10/2013 04/30/2014 Overview: CXR: Pneumoperitoneum noted under right hemidaphragm. D/w CTS and Cards. Pt asymptomatic. No fevers or tachycardia. Denies any abdominal pain. 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 LVH with apparent volume responsiveness (hemodynamics seemed best with CVP approx 15 and PAD approx 20). DVT prophylaxis: Encourage increased activity, SHAWN hose. Pain following surgery or procedure 10/08/2013 10/14/2013 Overview: Pt w/multiple medication allergies. Reports adequate pain control on current regimen. Lidoderm patches discontinued and steroids are being tapered (started prophylactically for adhesive allergy). Will uptitrate regimen as needed. Hyperchloremic metabolic acidosis 10/08/2013 10/09/2013 Overview: 10/08/13 - slightly acidotic with elevated chloride. Anion pina = +14, delta-delta = -7. No hx or s/s of impaired renal function. Will continue to monitor for now, with plan to treat if hyperchloremia/acidosis persists or worsens Atelectasis/FVO/Pleural effusions 10/08/2013 04/30/2014 Overview: On RA. Wt 2.1 kg above pre-op. CXR: b/l atelectasis. Small effusions. Cont lasix for aggressive diuresis. Plan to continue home bronchodilators, Enc OOB, amb, C&DB, PEP. Mechanically assisted ventilation 10/07/2013 10/08/2013 Overview: 10/07/2013 Residual anesthesia still on board. Will WTE once fully awake and appropriate extubation criteria met, including adequate hemostasis. Acute blood loss anemia 10/07/2013 04/30/20 14 Overview: 10/07/2013 Intraop blood loss with last intraop Hgb of 10.4 Level is adequate for oxygen delivery. Presently minimal need for vasoactive hemodynamic support. Plan Monitor closely for additional bleeding or coagulopathy Fluid resuscitation as needed Consider blood products if acute decompensation or further bleeding, or with Hgb < 7. 10/09/13 - H/H stable, will continue to monitor Cardiac insufficiency following cardiac surgery 10/07/2013 10/09/2013 Overview: 10/07/2013 Immediately postop, needs low dose inotropic support with epinephrine as well as fluid resuscitation to ensure euvolemia (given her LVH and stage 2 diastolic dysfunction). Wean epi as tolerated. Avoid tachycardia 10/08/13 - wean Epi gtt, high fluid balance - begin lasix Stress hyperglycemia 10/07/2013 12/19/2016 Overview: No hx of DM. Will continue SSI to keep glucose < 160 in post-op period. Tapering steroids. Discharge Planning 10/06/2013 01/02/2014 Overview: Discharge today 10.14.2013. Lives in [facility] with . Scheduled appointment with [place] [facility] at 10:30 on [address] Kim at 11:30 on 10.16.2013. H/o Anxiety 10/06/2013 12/19/2016 Overview: Hx of anxiety. Takes ativan BID at home. Mood stable. Plan to continue as an inpatient and increase dose as needed ASA CLASS II 11/25/2002 11/06/2011 Aortic valve disorder 12/19/2016 Overview: Dr. Mckay documented as of this encounter (statuses as of 05/25/2022) [facility] History of Past illness Narrative* Problem Noted Date Resolved Date Pseudopolyp of ascending colon without complicat ion 05/15/2017 08/31/2020 Microscopic hematuria 05/17/2016 08/31/2020 Angiomyolipoma 05/17/2016 08/31/2020 Overview: Unchanged on recent ct scan Hyperdense renal cyst 05/17/2016 12/07/2021 Overview: Unchanged on recent ct scan Acute right-sided low back pain with right-sided sciatica 03/23/2016 12/19/2016 Pneumoperitoneum 10/10/2013 04/30/2014 Overview: CXR: Pneumoperitoneum noted under right hemidaphragm. D/w CTS and Cards. Pt asymptomatic. No fevers or tachycardia. Denies any abdominal pain. 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 LVH with apparent volume responsiveness (hemodynamics seemed best with CVP approx 15 and PAD approx 20). DVT prophylaxis: Encourage increased activity, SHAWN hose. Pain following surgery or procedure 10/08/2013 10/14/2013 Overview: Pt w/multiple medication allergies. Reports adequate pain control on current regimen. Lidoderm patches discontinued and steroids are being tapered (started prophylactically for adhesive allergy). Will uptitrate regimen as needed. Hyperchloremic metabolic acidosis 10/08/2013 10/09/2013 Overview: 10/08/13 - slightly acidotic with elevated chloride. Anion pina = +14, delta-delta = -7. No hx or s/s of impaired renal function. Will continue to monitor for now, with plan to treat if hyperchloremia/acidosis persists or worsens Atelectasis/FVO/Pleural effusions 10/08/2013 04/30/2014 Overview: On RA. Wt 2.1 kg above pre-op. CXR: b/l atelectasis. Small effusions. Cont lasix for aggressive diuresis. Plan to continue home bronchodilators, Enc OOB, amb, C&DB, PEP. Mechanically assisted ventilation 10/07/2013 10/08/2013 Overview: 10/07/2013 Residual anesthesia still on board. Will WTE once fully awake and appropriate extubation criteria met, including adequate hemostasis. Acute blood loss anemia 10/07/2013 04/30/20 Overview: 10/07/2013 Intraop blood loss with last intraop Hgb of 10.4 Level is adequate for oxygen delivery. Presently minimal need for vasoactive hemodynamic support. Plan Monitor closely for additional bleeding or coagulopathy Fluid resuscitation as needed Consider blood products if acute decompensation or further bleeding, or with Hgb < 7. 10/09/13 - H/H stable, will continue to monitor Cardiac insufficiency following cardiac surgery 10/07/2013 10/09/2013 Overview: 10/07/2013 Immediately postop, needs low dose inotropic support with epinephrine as well as fluid resuscitation to ensure euvolemia (given her LVH and stage 2 diastolic dysfunction). Wean epi as tolerated. Avoid tachycardia 10/08/13 - wean Epi gtt, high fluid balance - begin lasix Stress hyperglycemia 10/07/2013 12/19/2016 Overview: No hx of DM. Will continue SSI to keep glucose < 160 in post-op period. Tapering steroids. Discharge Planning 10/06/2013 01/02/2014 Overview: Discharge today 10.14.2013. Lives in [facility] with . Scheduled appointment with [place] [facility] at 10:30 on 10.[address] Kim at 11:30 on 10.16.2013. H/o Anxiety 10/06/2013 12/19/2016 Overview: Hx of anxiety. Takes ativan BID at home. Mood stable. Plan to continue as an inpatient and increase dose as needed ASA CLASS II 11/25/2002 11/06/2011 Aortic valve disorder 12/19/2016 Overview: Dr. Mckay documented as of this encounter (statuses as of 05/29/2022) [facility] History of Past illness Narrative* Problem Noted Date Resolved Date Pseudopolyp of ascending colon without complicat ion 05/15/2017 08/31/2020 Microscopic hematuria 05/17/2016 08/31/2020 Angiomyolipoma 05/17/2016 08/31/2020 Overview: Unchanged on recent ct scan Hyperdense renal cyst 05/17/2016 12/07/2021 Overview: Unchanged on recent ct scan Acute right-sided low back pain with right-sided sciatica 03/23/2016 12/19/2016 Pneumoperitoneum 10/10/2013 04/30/2014 Overview: CXR: Pneumoperitoneum noted under right hemidaphragm. D/w CTS and Cards. Pt asymptomatic. No fevers or tachycardia. Denies any abdominal pain. 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 LVH with apparent volume responsiveness (hemodynamics seemed best with CVP approx 15 and PAD approx 20). DVT prophylaxis: Encourage increased activity, SHAWN hose. Pain following surgery or procedure 10/08/2013 10/14/2013 Overview: Pt w/multiple medication allergies. Reports adequate pain control on current regimen. Lidoderm patches discontinued and steroids are being tapered (started prophylactically for adhesive allergy). Will uptitrate regimen as needed. Hyperchloremic metabolic acidosis 10/08/2013 10/09/2013 Overview: 10/08/13 - slightly acidotic with elevated chloride. Anion pina = +14, delta-delta = -7. No hx or s/s of impaired renal function. Will continue to monitor for now, with plan to treat if hyperchloremia/acidosis persists or worsens Atelectasis/FVO/Pleural effusions 10/08/2013 04/30/2014 Overview: On RA. Wt 2.1 kg above pre-op. CXR: b/l atelectasis. Small effusions. Cont lasix for aggressive diuresis. Plan to continue home bronchodilators, Enc OOB, amb, C&DB, PEP. Mechanically assisted ventilation 10/07/2013 10/08/2013 Overview: 10/07/2013 Residual anesthesia still on board. Will WTE once fully awake and appropriate extubation criteria met, including adequate hemostasis. Acute blood loss anemia 10/07/2013 04/30/20 Overview: 10/07/2013 Intraop blood loss with last intraop Hgb of 10.4 Level is adequate for oxygen delivery. Presently minimal need for vasoactive hemodynamic support. Plan Monitor closely for additional bleeding or coagulopathy Fluid resuscitation as needed Consider blood products if acute decompensation or further bleeding, or with Hgb < 7. 10/09/13 - H/H stable, will continue to monitor Cardiac insufficiency following cardiac surgery 10/07/2013 10/09/2013 Overview: 10/07/2013 Immediately postop, needs low dose inotropic support with epinephrine as well as fluid resuscitation to ensure euvolemia (given her LVH and stage 2 diastolic dysfunction). Wean epi as tolerated. Avoid tachycardia 10/08/13 - wean Epi gtt, high fluid balance - begin lasix Stress hyperglycemia 10/07/2013 12/19/2016 Overview: No hx of DM. Will continue SSI to keep glucose < 160 in post-op period. Tapering steroids. Discharge Planning 10/06/2013 01/02/2014 Overview: Discharge today 10.14.2013. Lives in [facility] with . Scheduled appointment with [place] [facility] at 10:30 on [address] Kim at 11:30 on 10.16.2013. H/o Anxiety 10/06/2013 12/19/2016 Overview: Hx of anxiety. Takes ativan BID at home. Mood stable. Plan to continue as an inpatient and increase dose as needed ASA CLASS II 11/25/2002 11/06/2011 Aortic valve disorder 12/19/2016 Overview: Dr. Mckay documented as of this encounter (statuses as of 05/30/2022) [facility] History of Past illness Narrative* Problem Noted Date Resolved Date Pseudopolyp of ascending colon without complicat ion 05/15/2017 08/31/2020 Microscopic hematuria 05/17/2016 08/31/2020 Angiomyolipoma 05/17/2016 08/31/2020 Overview: Unchanged on recent ct scan Hyperdense renal cyst 05/17/2016 12/07/2021 Overview: Unchanged on recent ct scan Acute right-sided low back pain with right-sided sciatica 03/23/2016 12/19/2016 Pneumoperitoneum 10/10/2013 04/30/2014 Overview: CXR: Pneumoperitoneum noted under right hemidaphragm. D/w CTS and Cards. Pt asymptomatic. No fevers or tachycardia. Denies any abdominal pain. 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 LVH with apparent volume responsiveness (hemodynamics seemed best with CVP approx 15 and PAD approx 20). DVT prophylaxis: Encourage increased activity, SHAWN hose. Pain following surgery or procedure 10/08/2013 10/14/2013 Overview: Pt w/multiple medication allergies. Reports adequate pain control on current regimen. Lidoderm patches discontinued and steroids are being tapered (started prophylactically for adhesive allergy). Will uptitrate regimen as needed. Hyperchloremic metabolic acidosis 10/08/2013 10/09/2013 Overview: 10/08/13 - slightly acidotic with elevated chloride. Anion pina = +14, delta-delta = -7. No hx or s/s of impaired renal function. Will continue to monitor for now, with plan to treat if hyperchloremia/acidosis persists or worsens Atelectasis/FVO/Pleural effusions 10/08/2013 04/30/2014 Overview: On RA. Wt 2.1 kg above pre-op. CXR: b/l atelectasis. Small effusions. Cont lasix for aggressive diuresis. Plan to continue home bronchodilators, Enc OOB, amb, C&DB, PEP. Mechanically assisted ventilation 10/07/2013 10/08/2013 Overview: 10/07/2013 Residual anesthesia still on board. Will WTE once fully awake and appropriate extubation criteria met, including adequate hemostasis. Acute blood loss anemia 10/07/2013 04/30/20 Overview: 10/07/2013 Intraop blood loss with last intraop Hgb of 10.4 Level is adequate for oxygen delivery. Presently minimal need for vasoactive hemodynamic support. Plan Monitor closely for additional bleeding or coagulopathy Fluid resuscitation as needed Consider blood products if acute decompensation or further bleeding, or with Hgb < 7. 10/09/13 - H/H stable, will continue to monitor Cardiac insufficiency following cardiac surgery 10/07/2013 10/09/2013 Overview: 10/07/2013 Immediately postop, needs low dose inotropic support with epinephrine as well as fluid resuscitation to ensure euvolemia (given her LVH and stage 2 diastolic dysfunction). Wean epi as tolerated. Avoid tachycardia 10/08/13 - wean Epi gtt, high fluid balance - begin lasix Stress hyperglycemia 10/07/2013 12/19/2016 Overview: No hx of DM. Will continue SSI to keep glucose < 160 in post-op period. Tapering steroids. Discharge Planning 10/06/2013 01/02/2014 Overview: Discharge today 10.14.2013. Lives in [facility] with . Scheduled appointment with [place] [facility] at 10:30 on 10.[address] Kim at 11:30 on 10.16.2013. H/o Anxiety 10/06/2013 12/19/2016 Overview: Hx of anxiety. Takes ativan BID at home. Mood stable. Plan to continue as an inpatient and increase dose as needed ASA CLASS II 11/25/2002 11/06/2011 Aortic valve disorder 12/19/2016 Overview: Dr. Mckay documented as of this encounter (statuses as of 06/01/2022) [facility] History of Past illness Narrative* Problem Noted Date Resolved Date Pseudopolyp of ascending colon without complicat ion 05/15/2017 08/31/2020 Microscopic hematuria 05/17/2016 08/31/2020 Angiomyolipoma 05/17/2016 08/31/2020 Overview: Unchanged on recent ct scan Hyperdense renal cyst 05/17/2016 12/07/2021 Overview: Unchanged on recent ct scan Acute right-sided low back pain with right-sided sciatica 03/23/2016 12/19/2016 Pneumoperitoneum 10/10/2013 04/30/2014 Overview: CXR: Pneumoperitoneum noted under right hemidaphragm. D/w CTS and Cards. Pt asymptomatic. No fevers or tachycardia. Denies any abdominal pain. 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 LVH with apparent volume responsiveness (hemodynamics seemed best with CVP approx 15 and PAD approx 20). DVT prophylaxis: Encourage increased activity, SHAWN hose. Pain following surgery or procedure 10/08/2013 10/14/2013 Overview: Pt w/multiple medication allergies. Reports adequate pain control on current regimen. Lidoderm patches discontinued and steroids are being tapered (started prophylactically for adhesive allergy). Will uptitrate regimen as needed. Hyperchloremic metabolic acidosis 10/08/2013 10/09/2013 Overview: 10/08/13 - slightly acidotic with elevated chloride. Anion pina = +14, delta-delta = -7. No hx or s/s of impaired renal function. Will continue to monitor for now, with plan to treat if hyperchloremia/acidosis persists or worsens Atelectasis/FVO/Pleural effusions 10/08/2013 04/30/2014 Overview: On RA. Wt 2.1 kg above pre-op. CXR: b/l atelectasis. Small effusions. Cont lasix for aggressive diuresis. Plan to continue home bronchodilators, Enc OOB, amb, C&DB, PEP. Mechanically assisted ventilation 10/07/2013 10/08/2013 Overview: 10/07/2013 Residual anesthesia still on board. Will WTE once fully awake and appropriate extubation criteria met, including adequate hemostasis. Acute blood loss anemia 10/07/2013 04/30/20 14 Overview: 10/07/2013 Intraop blood loss with last intraop Hgb of 10.4 Level is adequate for oxygen delivery. Presently minimal need for vasoactive hemodynamic support. Plan Monitor closely for additional bleeding or coagulopathy Fluid resuscitation as needed Consider blood products if acute decompensation or further bleeding, or with Hgb < 7. 10/09/13 - H/H stable, will continue to monitor Cardiac insufficiency following cardiac surgery 10/07/2013 10/09/2013 Overview: 10/07/2013 Immediately postop, needs low dose inotropic support with epinephrine as well as fluid resuscitation to ensure euvolemia (given her LVH and stage 2 diastolic dysfunction). Wean epi as tolerated. Avoid tachycardia 10/08/13 - wean Epi gtt, high fluid balance - begin lasix Stress hyperglycemia 10/07/2013 12/19/2016 Overview: No hx of DM. Will continue SSI to keep glucose < 160 in post-op period. Tapering steroids. Discharge Planning 10/06/2013 01/02/2014 Overview: Discharge today 10.14.2013. Lives in [facility] with . Scheduled appointment with [place] [facility] at 10:30 on [address] Kim at 11:30 on 10.16.2013. H/o Anxiety 10/06/2013 12/19/2016 Overview: Hx of anxiety. Takes ativan BID at home. Mood stable. Plan to continue as an inpatient and increase dose as needed ASA CLASS II 11/25/2002 11/06/2011 Aortic valve disorder 12/19/2016 Overview: Dr. Mckay documented as of this encounter (statuses as of 06/07/2022) [facility] of Past illness Narrative* Problem Noted Date Resolved Date Pseudopolyp of ascending colon without complicat ion 05/15/2017 08/31/2020 Microscopic hematuria 05/17/2016 08/31/2020 Angiomyolipoma 05/17/2016 08/31/2020 Overview: Unchanged on recent ct scan Hyperdense renal cyst 05/17/2016 12/07/2021 Overview: Unchanged on recent ct scan Acute right-sided low back pain with right-sided sciatica 03/23/2016 12/19/2016 Pneumoperitoneum 10/10/2013 04/30/2014 Overview: CXR: Pneumoperitoneum noted under right hemidaphragm. D/w CTS and Cards. Pt asymptomatic. No fevers or tachycardia. Denies any abdominal pain. 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 LVH with apparent volume responsiveness (hemodynamics seemed best with CVP approx 15 and PAD approx 20). DVT prophylaxis: Encourage increased activity, SHAWN hose. Pain following surgery or procedure 10/08/2013 10/14/2013 Overview: Pt w/multiple medication allergies. Reports adequate pain control on current regimen. Lidoderm patches discontinued and steroids are being tapered (started prophylactically for adhesive allergy). Will uptitrate regimen as needed. Hyperchloremic metabolic acidosis 10/08/2013 10/09/2013 Overview: 10/08/13 - slightly acidotic with elevated chloride. Anion pina = +14, delta-delta = -7. No hx or s/s of impaired renal function. Will continue to monitor for now, with plan to treat if hyperchloremia/acidosis persists or worsens Atelectasis/FVO/Pleural effusions 10/08/2013 04/30/2014 Overview: On RA. Wt 2.1 kg above pre-op. CXR: b/l atelectasis. Small effusions. Cont lasix for aggressive diuresis. Plan to continue home bronchodilators, Enc OOB, amb, C&DB, PEP. Mechanically assisted ventilation 10/07/2013 10/08/2013 Overview: 10/07/2013 Residual anesthesia still on board. Will WTE once fully awake and appropriate extubation criteria met, including adequate hemostasis. Acute blood loss anemia 10/07/2013 04/30/20 Overview: 10/07/2013 Intraop blood loss with last intraop Hgb of 10.4 Level is adequate for oxygen delivery. Presently minimal need for vasoactive hemodynamic support. Plan Monitor closely for additional bleeding or coagulopathy Fluid resuscitation as needed Consider blood products if acute decompensation or further bleeding, or with Hgb < 7. 10/09/13 - H/H stable, will continue to monitor Cardiac insufficiency following cardiac surgery 10/07/2013 10/09/2013 Overview: 10/07/2013 Immediately postop, needs low dose inotropic support with epinephrine as well as fluid resuscitation to ensure euvolemia (given her LVH and stage 2 diastolic dysfunction). Wean epi as tolerated. Avoid tachycardia 10/08/13 - wean Epi gtt, high fluid balance - begin lasix Stress hyperglycemia 10/07/2013 12/19/2016 Overview: No hx of DM. Will continue SSI to keep glucose < 160 in post-op period. Tapering steroids. Discharge Planning 10/06/2013 01/02/2014 Overview: Discharge today 10.14.2013. Lives in [facility] with . Scheduled appointment with [place] [facility] at 10:30 on 10.[address] Kim at 11:30 on 10.16.2013. H/o Anxiety 10/06/2013 12/19/2016 Overview: Hx of anxiety. Takes ativan BID at home. Mood stable. Plan to continue as an inpatient and increase dose as needed ASA CLASS II 11/25/2002 11/06/2011 Aortic valve disorder 12/19/2016 Overview: Dr. Mckay documented as of this encounter (statuses as of 06/08/2022) [facility] History of Past illness Narrative* Problem Noted Date Resolved Date Pseudopolyp of ascending colon without complicat ion 05/15/2017 08/31/2020 Microscopic hematuria 05/17/2016 08/31/2020 Angiomyolipoma 05/17/2016 08/31/2020 Overview: Unchanged on recent ct scan Hyperdense renal cyst 05/17/2016 12/07/2021 Overview: Unchanged on recent ct scan Acute right-sided low back pain with right-sided sciatica 03/23/2016 12/19/2016 Pneumoperitoneum 10/10/2013 04/30/2014 Overview: CXR: Pneumoperitoneum noted under right hemidaphragm. D/w CTS and Cards. Pt asymptomatic. No fevers or tachycardia. Denies any abdominal pain. 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 LVH with apparent volume responsiveness (hemodynamics seemed best with CVP approx 15 and PAD approx 20). DVT prophylaxis: Encourage increased activity, SHAWN hose. Pain following surgery or procedure 10/08/2013 10/14/2013 Overview: Pt w/multiple medication allergies. Reports adequate pain control on current regimen. Lidoderm patches discontinued and steroids are being tapered (started prophylactically for adhesive allergy). Will uptitrate regimen as needed. Hyperchloremic metabolic acidosis 10/08/2013 10/09/2013 Overview: 10/08/13 - slightly acidotic with elevated chloride. Anion pina = +14, delta-delta = -7. No hx or s/s of impaired renal function. Will continue to monitor for now, with plan to treat if hyperchloremia/acidosis persists or worsens Atelectasis/FVO/Pleural effusions 10/08/2013 04/30/2014 Overview: On RA. Wt 2.1 kg above pre-op. CXR: b/l atelectasis. Small effusions. Cont lasix for aggressive diuresis. Plan to continue home bronchodilators, Enc OOB, amb, C&DB, PEP. Mechanically assisted ventilation 10/07/2013 10/08/2013 Overview: 10/07/2013 Residual anesthesia still on board. Will WTE once fully awake and appropriate extubation criteria met, including adequate hemostasis. Acute blood loss anemia 10/07/2013 04/30/20 Overview: 10/07/2013 Intraop blood loss with last intraop Hgb of 10.4 Level is adequate for oxygen delivery. Presently minimal need for vasoactive hemodynamic support. Plan Monitor closely for additional bleeding or coagulopathy Fluid resuscitation as needed Consider blood products if acute decompensation or further bleeding, or with Hgb < 7. 10/09/13 - H/H stable, will continue to monitor Cardiac insufficiency following cardiac surgery 10/07/2013 10/09/2013 Overview: 10/07/2013 Immediately postop, needs low dose inotropic support with epinephrine as well as fluid resuscitation to ensure euvolemia (given her LVH and stage 2 diastolic dysfunction). Wean epi as tolerated. Avoid tachycardia 10/08/13 - wean Epi gtt, high fluid balance - begin lasix Stress hyperglycemia 10/07/2013 12/19/2016 Overview: No hx of DM. Will continue SSI to keep glucose < 160 in post-op period. Tapering steroids. Discharge Planning 10/06/2013 01/02/2014 Overview: Discharge today 10.14.2013. Lives in [facility] with . Scheduled appointment with [place] [facility] at 10:30 on [address] Kim at 11:30 on 10.16.2013. H/o Anxiety 10/06/2013 12/19/2016 Overview: Hx of anxiety. Takes ativan BID at home. Mood stable. Plan to continue as an inpatient and increase dose as needed ASA CLASS II 11/25/2002 11/06/2011 Aortic valve disorder 12/19/2016 Overview: Dr. Mckay documented as of this encounter (statuses as of 06/12/2022) [facility] History of Past illness Narrative* Problem Noted Date Resolved Date Pseudopolyp of ascending colon without complicat ion 05/15/2017 08/31/2020 Microscopic hematuria 05/17/2016 08/31/2020 Angiomyolipoma 05/17/2016 08/31/2020 Overview: Unchanged on recent ct scan Hyperdense renal cyst 05/17/2016 12/07/2021 Overview: Unchanged on recent ct scan Acute right-sided low back pain with right-sided sciatica 03/23/2016 12/19/2016 Pneumoperitoneum 10/10/2013 04/30/2014 Overview: CXR: Pneumoperitoneum noted under right hemidaphragm. D/w CTS and Cards. Pt asymptomatic. No fevers or tachycardia. Denies any abdominal pain. 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 LVH with apparent volume responsiveness (hemodynamics seemed best with CVP approx 15 and PAD approx 20). DVT prophylaxis: Encourage increased activity, SHAWN hose. Pain following surgery or procedure 10/08/2013 10/14/2013 Overview: Pt w/multiple medication allergies. Reports adequate pain control on current regimen. Lidoderm patches discontinued and steroids are being tapered (started prophylactically for adhesive allergy). Will uptitrate regimen as needed. Hyperchloremic metabolic acidosis 10/08/2013 10/09/2013 Overview: 10/08/13 - slightly acidotic with elevated chloride. Anion pina = +14, delta-delta = -7. No hx or s/s of impaired renal function. Will continue to monitor for now, with plan to treat if hyperchloremia/acidosis persists or worsens Atelectasis/FVO/Pleural effusions 10/08/2013 04/30/2014 Overview: On RA. Wt 2.1 kg above pre-op. CXR: b/l atelectasis. Small effusions. Cont lasix for aggressive diuresis. Plan to continue home bronchodilators, Enc OOB, amb, C&DB, PEP. Mechanically assisted ventilation 10/07/2013 10/08/2013 Overview: 10/07/2013 Residual anesthesia still on board. Will WTE once fully awake and appropriate extubation criteria met, including adequate hemostasis. Acute blood loss anemia 10/07/2013 04/30/20 Overview: 10/07/2013 Intraop blood loss with last intraop Hgb of 10.4 Level is adequate for oxygen delivery. Presently minimal need for vasoactive hemodynamic support. Plan Monitor closely for additional bleeding or coagulopathy Fluid resuscitation as needed Consider blood products if acute decompensation or further bleeding, or with Hgb < 7. 10/09/13 - H/H stable, will continue to monitor Cardiac insufficiency following cardiac surgery 10/07/2013 10/09/2013 Overview: 10/07/2013 Immediately postop, needs low dose inotropic support with epinephrine as well as fluid resuscitation to ensure euvolemia (given her LVH and stage 2 diastolic dysfunction). Wean epi as tolerated. Avoid tachycardia 10/08/13 - wean Epi gtt, high fluid balance - begin lasix Stress hyperglycemia 10/07/2013 12/19/2016 Overview: No hx of DM. Will continue SSI to keep glucose < 160 in post-op period. Tapering steroids. Discharge Planning 10/06/2013 01/02/2014 Overview: Discharge today 10.14.2013. Lives in [facility] with . Scheduled appointment with [place] [facility] at 10:30 on 10.[address] Kim at 11:30 on 10.16.2013. H/o Anxiety 10/06/2013 12/19/2016 Overview: Hx of anxiety. Takes ativan BID at home. Mood stable. Plan to continue as an inpatient and increase dose as needed ASA CLASS II 11/25/2002 11/06/2011 Aortic valve disorder 12/19/2016 Overview: Dr. Mckay documented as of this encounter (statuses as of 06/29/2022) [facility] History of Past illness Narrative* Problem Noted Date Resolved Date Pseudopolyp of ascending colon without complicat ion 05/15/2017 08/31/2020 Microscopic hematuria 05/17/2016 08/31/2020 Angiomyolipoma 05/17/2016 08/31/2020 Overview: Unchanged on recent ct scan Hyperdense renal cyst 05/17/2016 12/07/2021 Overview: Unchanged on recent ct scan Acute right-sided low back pain with right-sided sciatica 03/23/2016 12/19/2016 H/o HTN 10/14/2013 07/06/2022 Overview: Currently normotensive. On BB, IV lasix- will change to po at discharge. Pneumoperitoneum 10/10/2013 04/30/2014 Overview: CXR: Pneumoperitoneum noted under right hemidaphragm. D/w CTS and Cards. Pt asymptomatic. No fevers or tachycardia. Denies any abdominal pain. 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 LVH with apparent volume responsiveness (hemodynamics seemed best with CVP approx 15 and PAD approx 20). DVT prophylaxis: Encourage increased activity, SHAWN hose. Pain following surgery or procedure 10/08/2013 10/14/2013 Overview: Pt w/multiple medication allergies. Reports adequate pain control on current regimen. Lidoderm patches discontinued and steroids are being tapered (started prophylactically for adhesive allergy). Will uptitrate regimen as needed. Hyperchloremic metabolic acidosis 10/08/2013 10/09/2013 Overview: 10/08/13 - slightly acidotic with elevated chloride. Anion pina = +14, delta-delta = -7. No hx or s/s of impaired renal function. Will continue to monitor for now, with plan to treat if hyperchloremia/acidosis persists or worsens Atelectasis/FVO/Pleural effusions 10/08/2013 04/30/2014 Overview: On RA. Wt 2.1 kg above pre-op. CXR: b/l atelectasis. Small effusions. Cont lasix for aggressive diuresis. Plan to continue home bronchodilators, Enc OOB, amb, C&DB, PEP. Mechanically assisted ventilation 10/07/2013 10/08/2013 Overview: 10/07/2013 Residual anesthesia still on board. Will WTE once fully awake and appropriate extubation criteria met, including adequate hemostasis. Acute blood loss anemia 10/07/2013 04/30/20 Overview: 10/07/2013 Intraop blood loss with last intraop Hgb of 10.4 Level is adequate for oxygen delivery. Presently minimal need for vasoactive hemodynamic support. Plan Monitor closely for additional bleeding or coagulopathy Fluid resuscitation as needed Consider blood products if acute decompensation or further bleeding, or with Hgb < 7. 10/09/13 - H/H stable, will continue to monitor Cardiac insufficiency following cardiac surgery 10/07/2013 10/09/2013 Overview: 10/07/2013 Immediately postop, needs low dose inotropic support with epinephrine as well as fluid resuscitation to ensure euvolemia (given her LVH and stage 2 diastolic dysfunction). Wean epi as tolerated. Avoid tachycardia 10/08/13 - wean Epi gtt, high fluid balance - begin lasix Stress hyperglycemia 10/07/2013 12/19/2016 Overview: No hx of DM. Will continue SSI to keep glucose < 160 in post-op period. Tapering steroids. Discharge Planning 10/06/2013 01/02/2014 Overview: Discharge today 10.14.2013. Lives in [facility] with . Scheduled appointment with [place] [facility] at 10:30 on 10.[address] Kim at 11:30 on 10.16.2013. H/o Anxiety 10/06/2013 12/19/2016 Overview: Hx of anxiety. Takes ativan BID at home. Mood stable. Plan to continue as an inpatient and increase dose as needed ASA CLASS II 11/25/2002 11/06/2011 Aortic valve disorder 12/19/2016 Overview: Dr. Mckay documented as of this encounter (statuses as of 07/06/2022) [facility] History of Past illness Narrative* Problem Noted Date Resolved Date Pseudopolyp of ascending colon without complicat ion 05/15/2017 08/31/2020 Microscopic hematuria 05/17/2016 08/31/2020 Angiomyolipoma 05/17/2016 08/31/2020 Overview: Unchanged on recent ct scan Hyperdense renal cyst 05/17/2016 12/07/2021 Overview: Unchanged on recent ct scan Acute right-sided low back pain with right-sided sciatica 03/23/2016 12/19/2016 H/o HTN 10/14/2013 07/06/2022 Overview: Currently normotensive. On BB, IV lasix- will change to po at discharge. Pneumoperitoneum 10/10/2013 04/30/2014 Overview: CXR: Pneumoperitoneum noted under right hemidaphragm. D/w CTS and Cards. Pt asymptomatic. No fevers or tachycardia. Denies any abdominal pain. 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 LVH with apparent volume responsiveness (hemodynamics seemed best with CVP approx 15 and PAD approx 20). DVT prophylaxis: Encourage increased activity, SHAWN hose. Pain following surgery or procedure 10/08/2013 10/14/2013 Overview: Pt w/multiple medication allergies. Reports adequate pain control on current regimen. Lidoderm patches discontinued and steroids are being tapered (started prophylactically for adhesive allergy). Will uptitrate regimen as needed. Hyperchloremic metabolic acidosis 10/08/2013 10/09/2013 Overview: 10/08/13 - slightly acidotic with elevated chloride. Anion pina = +14, delta-delta = -7. No hx or s/s of impaired renal function. Will continue to monitor for now, with plan to treat if hyperchloremia/acidosis persists or worsens Atelectasis/FVO/Pleural effusions 10/08/2013 04/30/2014 Overview: On RA. Wt 2.1 kg above pre-op. CXR: b/l atelectasis. Small effusions. Cont lasix for aggressive diuresis. Plan to continue home bronchodilators, Enc OOB, amb, C&DB, PEP. Mechanically assisted ventilation 10/07/2013 10/08/2013 Overview: 10/07/2013 Residual anesthesia still on board. Will WTE once fully awake and appropriate extubation criteria met, including adequate hemostasis. Acute blood loss anemia 10/07/2013 04/30/20 14 Overview: 10/07/2013 Intraop blood loss with last intraop Hgb of 10.4 Level is adequate for oxygen delivery. Presently minimal need for vasoactive hemodynamic support. Plan Monitor closely for additional bleeding or coagulopathy Fluid resuscitation as needed Consider blood products if acute decompensation or further bleeding, or with Hgb < 7. 10/09/13 - H/H stable, will continue to monitor Cardiac insufficiency following cardiac surgery 10/07/2013 10/09/2013 Overview: 10/07/2013 Immediately postop, needs low dose inotropic support with epinephrine as well as fluid resuscitation to ensure euvolemia (given her LVH and stage 2 diastolic dysfunction). Wean epi as tolerated. Avoid tachycardia 10/08/13 - wean Epi gtt, high fluid balance - begin lasix Stress hyperglycemia 10/07/2013 12/19/2016 Overview: No hx of DM. Will continue SSI to keep glucose < 160 in post-op period. Tapering steroids. Discharge Planning 10/06/2013 01/02/2014 Overview: Discharge today 10.14.2013. Lives in [facility] with . Scheduled appointment with [place] [facility] at 10:30 on 10.[address] Kim at 11:30 on 10.16.2013. H/o Anxiety 10/06/2013 12/19/2016 Overview: Hx of anxiety. Takes ativan BID at home. Mood stable. Plan to continue as an inpatient and increase dose as needed ASA CLASS II 11/25/2002 11/06/2011 Aortic valve disorder 12/19/2016 Overview: Dr. Mckay documented as of this encounter (statuses as of 07/10/2022) [facility] History of Past illness Narrative* Problem Noted Date Resolved Date Pseudopolyp of ascending colon without complicat ion 05/15/2017 08/31/2020 Microscopic hematuria 05/17/2016 08/31/2020 Angiomyolipoma 05/17/2016 08/31/2020 Overview: Unchanged on recent ct scan Hyperdense renal cyst 05/17/2016 12/07/2021 Overview: Unchanged on recent ct scan Acute right-sided low back pain with right-sided sciatica 03/23/2016 12/19/2016 H/o HTN 10/14/2013 07/06/2022 Overview: Currently normotensive. On BB, IV lasix- will change to po at discharge. Pneumoperitoneum 10/10/2013 04/30/2014 Overview: CXR: Pneumoperitoneum noted under right hemidaphragm. D/w CTS and Cards. Pt asymptomatic. No fevers or tachycardia. Denies any abdominal pain. 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 LVH with apparent volume responsiveness (hemodynamics seemed best with CVP approx 15 and PAD approx 20). DVT prophylaxis: Encourage increased activity, SHAWN hose. Pain following surgery or procedure 10/08/2013 10/14/2013 Overview: Pt w/multiple medication allergies. Reports adequate pain control on current regimen. Lidoderm patches discontinued and steroids are being tapered (started prophylactically for adhesive allergy). Will uptitrate regimen as needed. Hyperchloremic metabolic acidosis 10/08/2013 10/09/2013 Overview: 10/08/13 - slightly acidotic with elevated chloride. Anion pina = +14, delta-delta = -7. No hx or s/s of impaired renal function. Will continue to monitor for now, with plan to treat if hyperchloremia/acidosis persists or worsens Atelectasis/FVO/Pleural effusions 10/08/2013 04/30/2014 Overview: On RA. Wt 2.1 kg above pre-op. CXR: b/l atelectasis. Small effusions. Cont lasix for aggressive diuresis. Plan to continue home bronchodilators, Enc OOB, amb, C&DB, PEP. Mechanically assisted ventilation 10/07/2013 10/08/2013 Overview: 10/07/2013 Residual anesthesia still on board. Will WTE once fully awake and appropriate extubation criteria met, including adequate hemostasis. Acute blood loss anemia 10/07/2013 04/30/20 Overview: 10/07/2013 Intraop blood loss with last intraop Hgb of 10.4 Level is adequate for oxygen delivery. Presently minimal need for vasoactive hemodynamic support. Plan Monitor closely for additional bleeding or coagulopathy Fluid resuscitation as needed Consider blood products if acute decompensation or further bleeding, or with Hgb < 7. 10/09/13 - H/H stable, will continue to monitor Cardiac insufficiency following cardiac surgery 10/07/2013 10/09/2013 Overview: 10/07/2013 Immediately postop, needs low dose inotropic support with epinephrine as well as fluid resuscitation to ensure euvolemia (given her LVH and stage 2 diastolic dysfunction). Wean epi as tolerated. Avoid tachycardia 10/08/13 - wean Epi gtt, high fluid balance - begin lasix Stress hyperglycemia 10/07/2013 12/19/2016 Overview: No hx of DM. Will continue SSI to keep glucose < 160 in post-op period. Tapering steroids. Discharge Planning 10/06/2013 01/02/2014 Overview: Discharge today 10.14.2013. Lives in [facility] with . Scheduled appointment with [place] [facility] at 10:30 on [address] Kim at 11:30 on 10.16.2013. H/o Anxiety 10/06/2013 12/19/2016 Overview: Hx of anxiety. Takes ativan BID at home. Mood stable. Plan to continue as an inpatient and increase dose as needed ASA CLASS II 11/25/2002 11/06/2011 Aortic valve disorder 12/19/2016 Overview: Dr. Mckay documented as of this encounter (statuses as of 07/11/2022) [facility] Past illness Narrative* Problem Noted Date Resolved Date Pseudopolyp of ascending colon without complicat ion 05/15/2017 08/31/2020 Microscopic hematuria 05/17/2016 08/31/2020 Angiomyolipoma 05/17/2016 08/31/2020 Overview: Unchanged on recent ct scan Hyperdense renal cyst 05/17/2016 12/07/2021 Overview: Unchanged on recent ct scan Acute right-sided low back pain with right-sided sciatica 03/23/2016 12/19/2016 H/o HTN 10/14/2013 07/06/2022 Overview: Currently normotensive. On BB, IV lasix- will change to po at discharge. Pneumoperitoneum 10/10/2013 04/30/2014 Overview: CXR: Pneumoperitoneum noted under right hemidaphragm. D/w CTS and Cards. Pt asymptomatic. No fevers or tachycardia. Denies any abdominal pain. 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 LVH with apparent volume responsiveness (hemodynamics seemed best with CVP approx 15 and PAD approx 20). DVT prophylaxis: Encourage increased activity, SHAWN hose. Pain following surgery or procedure 10/08/2013 10/14/2013 Overview: Pt w/multiple medication allergies. Reports adequate pain control on current regimen. Lidoderm patches discontinued and steroids are being tapered (started prophylactically for adhesive allergy). Will uptitrate regimen as needed. Hyperchloremic metabolic acidosis 10/08/2013 10/09/2013 Overview: 10/08/13 - slightly acidotic with elevated chloride. Anion pina = +14, delta-delta = -7. No hx or s/s of impaired renal function. Will continue to monitor for now, with plan to treat if hyperchloremia/acidosis persists or worsens Atelectasis/FVO/Pleural effusions 10/08/2013 04/30/2014 Overview: On RA. Wt 2.1 kg above pre-op. CXR: b/l atelectasis. Small effusions. Cont lasix for aggressive diuresis. Plan to continue home bronchodilators, Enc OOB, amb, C&DB, PEP. Mechanically assisted ventilation 10/07/2013 10/08/2013 Overview: 10/07/2013 Residual anesthesia still on board. Will WTE once fully awake and appropriate extubation criteria met, including adequate hemostasis. Acute blood loss anemia 10/07/2013 04/30/20 Overview: 10/07/2013 Intraop blood loss with last intraop Hgb of 10.4 Level is adequate for oxygen delivery. Presently minimal need for vasoactive hemodynamic support. Plan Monitor closely for additional bleeding or coagulopathy Fluid resuscitation as needed Consider blood products if acute decompensation or further bleeding, or with Hgb < 7. 10/09/13 - H/H stable, will continue to monitor Cardiac insufficiency following cardiac surgery 10/07/2013 10/09/2013 Overview: 10/07/2013 Immediately postop, needs low dose inotropic support with epinephrine as well as fluid resuscitation to ensure euvolemia (given her LVH and stage 2 diastolic dysfunction). Wean epi as tolerated. Avoid tachycardia 10/08/13 - wean Epi gtt, high fluid balance - begin lasix Stress hyperglycemia 10/07/2013 12/19/2016 Overview: No hx of DM. Will continue SSI to keep glucose < 160 in post-op period. Tapering steroids. Discharge Planning 10/06/2013 01/02/2014 Overview: Discharge today 10.14.2013. Lives in [facility] with . Scheduled appointment with [facility] at 10:30 on 10.[address] Kim at 11:30 on 10.16.2013. H/o Anxiety 10/06/2013 12/19/2016 Overview: Hx of anxiety. Takes ativan BID at home. Mood stable. Plan to continue as an inpatient and increase dose as needed ASA CLASS II 11/25/2002 11/06/2011 Aortic valve disorder 12/19/2016 Overview: Dr. Mckay documented as of this encounter (statuses as of 07/21/2022) [facility] History of Past illness Narrative* Problem Noted Date Resolved Date Pseudopolyp of ascending colon without complicat ion 05/15/2017 08/31/2020 Microscopic hematuria 05/17/2016 08/31/2020 Angiomyolipoma 05/17/2016 08/31/2020 Overview: Unchanged on recent ct scan Hyperdense renal cyst 05/17/2016 12/07/2021 Overview: Unchanged on recent ct scan Acute right-sided low back pain with right-sided sciatica 03/23/2016 12/19/2016 H/o HTN 10/14/2013 07/06/2022 Overview: Currently normotensive. On BB, IV lasix- will change to po at discharge. Pneumoperitoneum 10/10/2013 04/30/2014 Overview: CXR: Pneumoperitoneum noted under right hemidaphragm. D/w CTS and Cards. Pt asymptomatic. No fevers or tachycardia. Denies any abdominal pain. 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 LVH with apparent volume responsiveness (hemodynamics seemed best with CVP approx 15 and PAD approx 20). DVT prophylaxis: Encourage increased activity, SHAWN hose. Pain following surgery or procedure 10/08/2013 10/14/2013 Overview: Pt w/multiple medication allergies. Reports adequate pain control on current regimen. Lidoderm patches discontinued and steroids are being tapered (started prophylactically for adhesive allergy). Will uptitrate regimen as needed. Hyperchloremic metabolic acidosis 10/08/2013 10/09/2013 Overview: 10/08/13 - slightly acidotic with elevated chloride. Anion pina = +14, delta-delta = -7. No hx or s/s of impaired renal function. Will continue to monitor for now, with plan to treat if hyperchloremia/acidosis persists or worsens Atelectasis/FVO/Pleural effusions 10/08/2013 04/30/2014 Overview: On RA. Wt 2.1 kg above pre-op. CXR: b/l atelectasis. Small effusions. Cont lasix for aggressive diuresis. Plan to continue home bronchodilators, Enc OOB, amb, C&DB, PEP. Mechanically assisted ventilation 10/07/2013 10/08/2013 Overview: 10/07/2013 Residual anesthesia still on board. Will WTE once fully awake and appropriate extubation criteria met, including adequate hemostasis. Acute blood loss anemia 10/07/2013 04/30/20 Overview: 10/07/2013 Intraop blood loss with last intraop Hgb of 10.4 Level is adequate for oxygen delivery. Presently minimal need for vasoactive hemodynamic support. Plan Monitor closely for additional bleeding or coagulopathy Fluid resuscitation as needed Consider blood products if acute decompensation or further bleeding, or with Hgb < 7. 10/09/13 - H/H stable, will continue to monitor Cardiac insufficiency following cardiac surgery 10/07/2013 10/09/2013 Overview: 10/07/2013 Immediately postop, needs low dose inotropic support with epinephrine as well as fluid resuscitation to ensure euvolemia (given her LVH and stage 2 diastolic dysfunction). Wean epi as tolerated. Avoid tachycardia 10/08/13 - wean Epi gtt, high fluid balance - begin lasix Stress hyperglycemia 10/07/2013 12/19/2016 Overview: No hx of DM. Will continue SSI to keep glucose < 160 in post-op period. Tapering steroids. Discharge Planning 10/06/2013 01/02/2014 Overview: Discharge today 10.14.2013. Lives in [facility] with . Scheduled appointment with [facility] at 10:30 on 10.[address] Kim at 11:30 on 10.16.2013. H/o Anxiety 10/06/2013 12/19/2016 Overview: Hx of anxiety. Takes ativan BID at home. Mood stable. Plan to continue as an inpatient and increase dose as needed ASA CLASS II 11/25/2002 11/06/2011 Aortic valve disorder 12/19/2016 Overview: Dr. Mckay documented as of this encounter (statuses as of 08/01/2022) [facility] History of Past illness Narrative* Problem Noted Date Resolved Date Pseudopolyp of ascending colon without complicat ion 05/15/2017 08/31/2020 Microscopic hematuria 05/17/2016 08/31/2020 Angiomyolipoma 05/17/2016 08/31/2020 Overview: Unchanged on recent ct scan Hyperdense renal cyst 05/17/2016 12/07/2021 Overview: Unchanged on recent ct scan Acute right-sided low back pain with right-sided sciatica 03/23/2016 12/19/2016 H/o HTN 10/14/2013 07/06/2022 Overview: Currently normotensive. On BB, IV lasix- will change to po at discharge. Pneumoperitoneum 10/10/2013 04/30/2014 Overview: CXR: Pneumoperitoneum noted under right hemidaphragm. D/w CTS and Cards. Pt asymptomatic. No fevers or tachycardia. Denies any abdominal pain. 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 LVH with apparent volume responsiveness (hemodynamics seemed best with CVP approx 15 and PAD approx 20). DVT prophylaxis: Encourage increased activity, SHAWN hose. Pain following surgery or procedure 10/08/2013 10/14/2013 Overview: Pt w/multiple medication allergies. Reports adequate pain control on current regimen. Lidoderm patches discontinued and steroids are being tapered (started prophylactically for adhesive allergy). Will uptitrate regimen as needed. Hyperchloremic metabolic acidosis 10/08/2013 10/09/2013 Overview: 10/08/13 - slightly acidotic with elevated chloride. Anion pina = +14, delta-delta = -7. No hx or s/s of impaired renal function. Will continue to monitor for now, with plan to treat if hyperchloremia/acidosis persists or worsens Atelectasis/FVO/Pleural effusions 10/08/2013 04/30/2014 Overview: On RA. Wt 2.1 kg above pre-op. CXR: b/l atelectasis. Small effusions. Cont lasix for aggressive diuresis. Plan to continue home bronchodilators, Enc OOB, amb, C&DB, PEP. Mechanically assisted ventilation 10/07/2013 10/08/2013 Overview: 10/07/2013 Residual anesthesia still on board. Will WTE once fully awake and appropriate extubation criteria met, including adequate hemostasis. Acute blood loss anemia 10/07/2013 04/30/20 14 Overview: 10/07/2013 Intraop blood loss with last intraop Hgb of 10.4 Level is adequate for oxygen delivery. Presently minimal need for vasoactive hemodynamic support. Plan Monitor closely for additional bleeding or coagulopathy Fluid resuscitation as needed Consider blood products if acute decompensation or further bleeding, or with Hgb < 7. 3/13/14 - H/H stable, will continue to monitor Cardiac insufficiency following cardiac surgery 10/07/2013 10/09/2013 Overview: 10/07/2013 Immediately postop, needs low dose inotropic support with epinephrine as well as fluid resuscitation to ensure euvolemia (given her LVH and stage 2 diastolic dysfunction). Wean epi as tolerated. Avoid tachycardia 10/08/13 - wean Epi gtt, high fluid balance - begin lasix Stress hyperglycemia 10/07/2013 12/19/2016 Overview: No hx of DM. Will continue SSI to keep glucose < 160 in post-op period. Tapering steroids. Discharge Planning 10/06/2013 01/02/2014 Overview: Discharge today 10.14.2013. Lives in [facility] with . Scheduled appointment with [place] [facility] at 10:30 on 10.[address] Kim at 11:30 on 10.16.2013. H/o Anxiety 10/06/2013 12/19/2016 Overview: Hx of anxiety. Takes ativan BID at home. Mood stable. Plan to continue as an inpatient and increase dose as needed ASA CLASS II 11/25/2002 11/06/2011 Aortic valve disorder 12/19/2016 Overview: Dr. Mckay documented as of this encounter (statuses as of 08/02/2022) [facility] History of Past illness Narrative* Problem Noted Date Resolved Date Pseudopolyp of ascending colon without complicat ion 05/15/2017 08/31/2020 Microscopic hematuria 05/17/2016 08/31/2020 Angiomyolipoma 05/17/2016 08/31/2020 Overview: Unchanged on recent ct scan Hyperdense renal cyst 05/17/2016 12/07/2021 Overview: Unchanged on recent ct scan Acute right-sided low back pain with right-sided sciatica 03/23/2016 12/19/2016 H/o HTN 10/14/2013 07/06/2022 Overview: Currently normotensive. On BB, IV lasix- will change to po at discharge. Pneumoperitoneum 10/10/2013 04/30/2014 Overview: CXR: Pneumoperitoneum noted under right hemidaphragm. D/w CTS and Cards. Pt asymptomatic. No fevers or tachycardia. Denies any abdominal pain. 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 LVH with apparent volume responsiveness (hemodynamics seemed best with CVP approx 15 and PAD approx 20). DVT prophylaxis: Encourage increased activity, SHAWN hose. Pain following surgery or procedure 10/08/2013 10/14/2013 Overview: Pt w/multiple medication allergies. Reports adequate pain control on current regimen. Lidoderm patches discontinued and steroids are being tapered (started prophylactically for adhesive allergy). Will uptitrate regimen as needed. Hyperchloremic metabolic acidosis 10/08/2013 10/09/2013 Overview: 10/08/13 - slightly acidotic with elevated chloride. Anion pina = +14, delta-delta = -7. No hx or s/s of impaired renal function. Will continue to monitor for now, with plan to treat if hyperchloremia/acidosis persists or worsens Atelectasis/FVO/Pleural effusions 10/08/2013 04/30/2014 Overview: On RA. Wt 2.1 kg above pre-op. CXR: b/l atelectasis. Small effusions. Cont lasix for aggressive diuresis. Plan to continue home bronchodilators, Enc OOB, amb, C&DB, PEP. Mechanically assisted ventilation 10/07/2013 10/08/2013 Overview: 10/07/2013 Residual anesthesia still on board. Will WTE once fully awake and appropriate extubation criteria met, including adequate hemostasis. Acute blood loss anemia 10/07/2013 04/30/20 Overview: 10/07/2013 Intraop blood loss with last intraop Hgb of 10.4 Level is adequate for oxygen delivery. Presently minimal need for vasoactive hemodynamic support. Plan Monitor closely for additional bleeding or coagulopathy Fluid resuscitation as needed Consider blood products if acute decompensation or further bleeding, or with Hgb < 7. 10/09/13 - H/H stable, will continue to monitor Cardiac insufficiency following cardiac surgery 10/07/2013 10/09/2013 Overview: 10/07/2013 Immediately postop, needs low dose inotropic support with epinephrine as well as fluid resuscitation to ensure euvolemia (given her LVH and stage 2 diastolic dysfunction). Wean epi as tolerated. Avoid tachycardia 10/08/13 - wean Epi gtt, high fluid balance - begin lasix Stress hyperglycemia 10/07/2013 12/19/2016 Overview: No hx of DM. Will continue SSI to keep glucose < 160 in post-op period. Tapering steroids. Discharge Planning 10/06/2013 01/02/2014 Overview: Discharge today 10.14.2013. Lives in [facility] with . Scheduled appointment with [place] at 10:30 on 10.[address] Kim at 11:30 on 10.16.2013. H/o Anxiety 10/06/2013 12/19/2016 Overview: Hx of anxiety. Takes ativan BID at home. Mood stable. Plan to continue as an inpatient and increase dose as needed ASA CLASS II 11/25/2002 11/06/2011 Aortic valve disorder 12/19/2016 Overview: Dr. Mckay documented as of this encounter (statuses as of 08/02/2022) [facility] History of Past illness Narrative* Problem Noted Date Resolved Date Pseudopolyp of ascending colon without complicat ion 05/15/2017 08/31/2020 Microscopic hematuria 05/17/2016 08/31/2020 Angiomyolipoma 05/17/2016 08/31/2020 Overview: Unchanged on recent ct scan Hyperdense renal cyst 05/17/2016 12/07/2021 Overview: Unchanged on recent ct scan Acute right-sided low back pain with right-sided sciatica 03/23/2016 12/19/2016 H/o HTN 10/14/2013 07/06/2022 Overview: Currently normotensive. On BB, IV lasix- will change to po at discharge. Pneumoperitoneum 10/10/2013 04/30/2014 Overview: CXR: Pneumoperitoneum noted under right hemidaphragm. D/w CTS and Cards. Pt asymptomatic. No fevers or tachycardia. Denies any abdominal pain. 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 LVH with apparent volume responsiveness (hemodynamics seemed best with CVP approx 15 and PAD approx 20). DVT prophylaxis: Encourage increased activity, SHAWN hose. Pain following surgery or procedure 10/08/2013 10/14/2013 Overview: Pt w/multiple medication allergies. Reports adequate pain control on current regimen. Lidoderm patches discontinued and steroids are being tapered (started prophylactically for adhesive allergy). Will uptitrate regimen as needed. Hyperchloremic metabolic acidosis 10/08/2013 10/09/2013 Overview: 10/08/13 - slightly acidotic with elevated chloride. Anion pina = +14, delta-delta = -7. No hx or s/s of impaired renal function. Will continue to monitor for now, with plan to treat if hyperchloremia/acidosis persists or worsens Atelectasis/FVO/Pleural effusions 10/08/2013 04/30/2014 Overview: On RA. Wt 2.1 kg above pre-op. CXR: b/l atelectasis. Small effusions. Cont lasix for aggressive diuresis. Plan to continue home bronchodilators, Enc OOB, amb, C&DB, PEP. Mechanically assisted ventilation 10/07/2013 10/08/2013 Overview: 10/07/2013 Residual anesthesia still on board. Will WTE once fully awake and appropriate extubation criteria met, including adequate hemostasis. Acute blood loss anemia 10/07/2013 04/30/20 Overview: 10/07/2013 Intraop blood loss with last intraop Hgb of 10.4 Level is adequate for oxygen delivery. Presently minimal need for vasoactive hemodynamic support. Plan Monitor closely for additional bleeding or coagulopathy Fluid resuscitation as needed Consider blood products if acute decompensation or further bleeding, or with Hgb < 7. 10/09/13 - H/H stable, will continue to monitor Cardiac insufficiency following cardiac surgery 10/07/2013 10/09/2013 Overview: 10/07/2013 Immediately postop, needs low dose inotropic support with epinephrine as well as fluid resuscitation to ensure euvolemia (given her LVH and stage 2 diastolic dysfunction). Wean epi as tolerated. Avoid tachycardia 10/08/13 - wean Epi gtt, high fluid balance - begin lasix Stress hyperglycemia 10/07/2013 12/19/2016 Overview: No hx of DM. Will continue SSI to keep glucose < 160 in post-op period. Tapering steroids. Discharge Planning 10/06/2013 01/02/2014 Overview: Discharge today 10.14.2013. Lives in [facility] with . Scheduled appointment with [place] [facility] at 10:30 on 10.[address] Kim at 11:30 on 10.16.2013. H/o Anxiety 10/06/2013 12/19/2016 Overview: Hx of anxiety. Takes ativan BID at home. Mood stable. Plan to continue as an inpatient and increase dose as needed ASA CLASS II 11/25/2002 11/06/2011 Aortic valve disorder 12/19/2016 Overview: Dr. Mckay documented as of this encounter (statuses as of 08/03/2022) [facility] History of Past illness Narrative* Problem Noted Date Resolved Date Pseudopolyp of ascending colon without complicat ion 05/15/2017 08/31/2020 Microscopic hematuria 05/17/2016 08/31/2020 Angiomyolipoma 05/17/2016 08/31/2020 Overview: Unchanged on recent ct scan Hyperdense renal cyst 05/17/2016 12/07/2021 Overview: Unchanged on recent ct scan Acute right-sided low back pain with right-sided sciatica 03/23/2016 12/19/2016 H/o HTN 10/14/2013 07/06/2022 Overview: Currently normotensive. On BB, IV lasix- will change to po at discharge. Pneumoperitoneum 10/10/2013 04/30/2014 Overview: CXR: Pneumoperitoneum noted under right hemidaphragm. D/w CTS and Cards. Pt asymptomatic. No fevers or tachycardia. Denies any abdominal pain. 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 LVH with apparent volume responsiveness (hemodynamics seemed best with CVP approx 15 and PAD approx 20). DVT prophylaxis: Encourage increased activity, SHAWN hose. Pain following surgery or procedure 10/08/2013 10/14/2013 Overview: Pt w/multiple medication allergies. Reports adequate pain control on current regimen. Lidoderm patches discontinued and steroids are being tapered (started prophylactically for adhesive allergy). Will uptitrate regimen as needed. Hyperchloremic metabolic acidosis 10/08/2013 10/09/2013 Overview: 10/08/13 - slightly acidotic with elevated chloride. Anion pina = +14, delta-delta = -7. No hx or s/s of impaired renal function. Will continue to monitor for now, with plan to treat if hyperchloremia/acidosis persists or worsens Atelectasis/FVO/Pleural effusions 10/08/2013 04/30/2014 Overview: On RA. Wt 2.1 kg above pre-op. CXR: b/l atelectasis. Small effusions. Cont lasix for aggressive diuresis. Plan to continue home bronchodilators, Enc OOB, amb, C&DB, PEP. Mechanically assisted ventilation 10/07/2013 10/08/2013 Overview: 10/07/2013 Residual anesthesia still on board. Will WTE once fully awake and appropriate extubation criteria met, including adequate hemostasis. Acute blood loss anemia 10/07/2013 04/30/20 14 Overview: 10/07/2013 Intraop blood loss with last intraop Hgb of 10.4 Level is adequate for oxygen delivery. Presently minimal need for vasoactive hemodynamic support. Plan Monitor closely for additional bleeding or coagulopathy Fluid resuscitation as needed Consider blood products if acute decompensation or further bleeding, or with Hgb < 7. 10/09/13 - H/H stable, will continue to monitor Cardiac insufficiency following cardiac surgery 10/07/2013 10/09/2013 Overview: 10/07/2013 Immediately postop, needs low dose inotropic support with epinephrine as well as fluid resuscitation to ensure euvolemia (given her LVH and stage 2 diastolic dysfunction). Wean epi as tolerated. Avoid tachycardia 10/08/13 - wean Epi gtt, high fluid balance - begin lasix Stress hyperglycemia 10/07/2013 12/19/2016 Overview: No hx of DM. Will continue SSI to keep glucose < 160 in post-op period. Tapering steroids. Discharge Planning 10/06/2013 01/02/2014 Overview: Discharge today 10.14.2013. Lives in [facility] with . Scheduled appointment with [place] [facility] at 10:30 on 10.[address] Kim at 11:30 on 10.16.2013. H/o Anxiety 10/06/2013 12/19/2016 Overview: Hx of anxiety. Takes ativan BID at home. Mood stable. Plan to continue as an inpatient and increase dose as needed ASA CLASS II 11/25/2002 11/06/2011 Aortic valve disorder 12/19/2016 Overview: Dr. Mckay documented as of this encounter (statuses as of 08/10/2022) [facility] Past illness Narrative* Problem Noted Date Resolved Date Pseudopolyp of ascending colon without complicat ion 05/15/2017 08/31/2020 Microscopic hematuria 05/17/2016 08/31/2020 Angiomyolipoma 05/17/2016 08/31/2020 Overview: Unchanged on recent ct scan Hyperdense renal cyst 05/17/2016 12/07/2021 Overview: Unchanged on recent ct scan Acute right-sided low back pain with right-sided sciatica 03/23/2016 12/19/2016 H/o HTN 10/14/2013 07/06/2022 Overview: Currently normotensive. On BB, IV lasix- will change to po at discharge. Pneumoperitoneum 10/10/2013 04/30/2014 Overview: CXR: Pneumoperitoneum noted under right hemidaphragm. D/w CTS and Cards. Pt asymptomatic. No fevers or tachycardia. Denies any abdominal pain. 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 LVH with apparent volume responsiveness (hemodynamics seemed best with CVP approx 15 and PAD approx 20). DVT prophylaxis: Encourage increased activity, SHAWN hose. Pain following surgery or procedure 10/08/2013 10/14/2013 Overview: Pt w/multiple medication allergies. Reports adequate pain control on current regimen. Lidoderm patches discontinued and steroids are being tapered (started prophylactically for adhesive allergy). Will uptitrate regimen as needed. Hyperchloremic metabolic acidosis 10/08/2013 10/09/2013 Overview: 10/08/13 - slightly acidotic with elevated chloride. Anion pina = +14, delta-delta = -7. No hx or s/s of impaired renal function. Will continue to monitor for now, with plan to treat if hyperchloremia/acidosis persists or worsens Atelectasis/FVO/Pleural effusions 10/08/2013 04/30/2014 Overview: On RA. Wt 2.1 kg above pre-op. CXR: b/l atelectasis. Small effusions. Cont lasix for aggressive diuresis. Plan to continue home bronchodilators, Enc OOB, amb, C&DB, PEP. Mechanically assisted ventilation 10/07/2013 10/08/2013 Overview: 10/07/2013 Residual anesthesia still on board. Will WTE once fully awake and appropriate extubation criteria met, including adequate hemostasis. Acute blood loss anemia 10/07/2013 04/30/20 14 Overview: 10/07/2013 Intraop blood loss with last intraop Hgb of 10.4 Level is adequate for oxygen delivery. Presently minimal need for vasoactive hemodynamic support. Plan Monitor closely for additional bleeding or coagulopathy Fluid resuscitation as needed Consider blood products if acute decompensation or further bleeding, or with Hgb < 7. 10/09/13 - H/H stable, will continue to monitor Cardiac insufficiency following cardiac surgery 10/07/2013 10/09/2013 Overview: 10/07/2013 Immediately postop, needs low dose inotropic support with epinephrine as well as fluid resuscitation to ensure euvolemia (given her LVH and stage 2 diastolic dysfunction). Wean epi as tolerated. Avoid tachycardia 10/08/13 - wean Epi gtt, high fluid balance - begin lasix Stress hyperglycemia 10/07/2013 12/19/2016 Overview: No hx of DM. Will continue SSI to keep glucose < 160 in post-op period. Tapering steroids. Discharge Planning 10/06/2013 01/02/2014 Overview: Discharge today 10.14.2013. Lives in [facility] with . Scheduled appointment with [place] [facility] at 10:30 on [address] Kim at 11:30 on 10.16.2013. H/o Anxiety 10/06/2013 12/19/2016 Overview: Hx of anxiety. Takes ativan BID at home. Mood stable. Plan to continue as an inpatient and increase dose as needed ASA CLASS II 11/25/2002 11/06/2011 Aortic valve disorder 12/19/2016 Overview: Dr. Mckay documented as of this encounter (statuses as of 08/11/2022) [facility] of Past illness Narrative* Problem Noted Date Resolved Date Pseudopolyp of ascending colon without complicat ion 05/15/2017 08/31/2020 Microscopic hematuria 05/17/2016 08/31/2020 Angiomyolipoma 05/17/2016 08/31/2020 Overview: Unchanged on recent ct scan Hyperdense renal cyst 05/17/2016 12/07/2021 Overview: Unchanged on recent ct scan Acute right-sided low back pain with right-sided sciatica 03/23/2016 12/19/2016 H/o HTN 10/14/2013 07/06/2022 Overview: Currently normotensive. On BB, IV lasix- will change to po at discharge. Pneumoperitoneum 10/10/2013 04/30/2014 Overview: CXR: Pneumoperitoneum noted under right hemidaphragm. D/w CTS and Cards. Pt asymptomatic. No fevers or tachycardia. Denies any abdominal pain. 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 LVH with apparent volume responsiveness (hemodynamics seemed best with CVP approx 15 and PAD approx 20). DVT prophylaxis: Encourage increased activity, SHAWN hose. Pain following surgery or procedure 10/08/2013 10/14/2013 Overview: Pt w/multiple medication allergies. Reports adequate pain control on current regimen. Lidoderm patches discontinued and steroids are being tapered (started prophylactically for adhesive allergy). Will uptitrate regimen as needed. Hyperchloremic metabolic acidosis 10/08/2013 10/09/2013 Overview: 10/08/13 - slightly acidotic with elevated chloride. Anion pina = +14, delta-delta = -7. No hx or s/s of impaired renal function. Will continue to monitor for now, with plan to treat if hyperchloremia/acidosis persists or worsens Atelectasis/FVO/Pleural effusions 10/08/2013 04/30/2014 Overview: On RA. Wt 2.1 kg above pre-op. CXR: b/l atelectasis. Small effusions. Cont lasix for aggressive diuresis. Plan to continue home bronchodilators, Enc OOB, amb, C&DB, PEP. Mechanically assisted ventilation 10/07/2013 10/08/2013 Overview: 10/07/2013 Residual anesthesia still on board. Will WTE once fully awake and appropriate extubation criteria met, including adequate hemostasis. Acute blood loss anemia 10/07/2013 04/30/20 Overview: 10/07/2013 Intraop blood loss with last intraop Hgb of 10.4 Level is adequate for oxygen delivery. Presently minimal need for vasoactive hemodynamic support. Plan Monitor closely for additional bleeding or coagulopathy Fluid resuscitation as needed Consider blood products if acute decompensation or further bleeding, or with Hgb < 7. 10/09/13 - H/H stable, will continue to monitor Cardiac insufficiency following cardiac surgery 10/07/2013 10/09/2013 Overview: 10/07/2013 Immediately postop, needs low dose inotropic support with epinephrine as well as fluid resuscitation to ensure euvolemia (given her LVH and stage 2 diastolic dysfunction). Wean epi as tolerated. Avoid tachycardia 10/08/13 - wean Epi gtt, high fluid balance - begin lasix Stress hyperglycemia 10/07/2013 12/19/2016 Overview: No hx of DM. Will continue SSI to keep glucose < 160 in post-op period. Tapering steroids. Discharge Planning 10/06/2013 01/02/2014 Overview: Discharge today 10.14.2013. Lives in [facility] with . Scheduled appointment with [place] [facility] at 10:30 on 10.[address] Kim at 11:30 on 10.16.2013. H/o Anxiety 10/06/2013 12/19/2016 Overview: Hx of anxiety. Takes ativan BID at home. Mood stable. Plan to continue as an inpatient and increase dose as needed ASA CLASS II 11/25/2002 11/06/2011 Aortic valve disorder 12/19/2016 Overview: Dr. Mckay documented as of this encounter (statuses as of 08/15/2022) [facility] History of Past illness Narrative* Problem Noted Date Resolved Date Pseudopolyp of ascending colon without complicat ion 05/15/2017 08/31/2020 Microscopic hematuria 05/17/2016 08/31/2020 Angiomyolipoma 05/17/2016 08/31/2020 Overview: Unchanged on recent ct scan Hyperdense renal cyst 05/17/2016 12/07/2021 Overview: Unchanged on recent ct scan Acute right-sided low back pain with right-sided sciatica 03/23/2016 12/19/2016 H/o HTN 10/14/2013 07/06/2022 Overview: Currently normotensive. On BB, IV lasix- will change to po at discharge. Pneumoperitoneum 10/10/2013 04/30/2014 Overview: CXR: Pneumoperitoneum noted under right hemidaphragm. D/w CTS and Cards. Pt asymptomatic. No fevers or tachycardia. Denies any abdominal pain. 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 LVH with apparent volume responsiveness (hemodynamics seemed best with CVP approx 15 and PAD approx 20). DVT prophylaxis: Encourage increased activity, SHAWN hose. Pain following surgery or procedure 10/08/2013 10/14/2013 Overview: Pt w/multiple medication allergies. Reports adequate pain control on current regimen. Lidoderm patches discontinued and steroids are being tapered (started prophylactically for adhesive allergy). Will uptitrate regimen as needed. Hyperchloremic metabolic acidosis 10/08/2013 10/09/2013 Overview: 10/08/13 - slightly acidotic with elevated chloride. Anion pina = +14, delta-delta = -7. No hx or s/s of impaired renal function. Will continue to monitor for now, with plan to treat if hyperchloremia/acidosis persists or worsens Atelectasis/FVO/Pleural effusions 10/08/2013 04/30/2014 Overview: On RA. Wt 2.1 kg above pre-op. CXR: b/l atelectasis. Small effusions. Cont lasix for aggressive diuresis. Plan to continue home bronchodilators, Enc OOB, amb, C&DB, PEP. Mechanically assisted ventilation 10/07/2013 10/08/2013 Overview: 10/07/2013 Residual anesthesia still on board. Will WTE once fully awake and appropriate extubation criteria met, including adequate hemostasis. Acute blood loss anemia 10/07/2013 04/30/20 Overview: 10/07/2013 Intraop blood loss with last intraop Hgb of 10.4 Level is adequate for oxygen delivery. Presently minimal need for vasoactive hemodynamic support. Plan Monitor closely for additional bleeding or coagulopathy Fluid resuscitation as needed Consider blood products if acute decompensation or further bleeding, or with Hgb < 7. 10/09/13 - H/H stable, will continue to monitor Cardiac insufficiency following cardiac surgery 10/07/2013 10/09/2013 Overview: 10/07/2013 Immediately postop, needs low dose inotropic support with epinephrine as well as fluid resuscitation to ensure euvolemia (given her LVH and stage 2 diastolic dysfunction). Wean epi as tolerated. Avoid tachycardia 10/08/13 - wean Epi gtt, high fluid balance - begin lasix Stress hyperglycemia 10/07/2013 12/19/2016 Overview: No hx of DM. Will continue SSI to keep glucose < 160 in post-op period. Tapering steroids. Discharge Planning 10/06/2013 01/02/2014 Overview: Discharge today 10.14.2013. Lives in [facility] with . Scheduled appointment with [place] [facility] at 10:30 on [address] Kim at 11:30 on 10.16.2013. H/o Anxiety 10/06/2013 12/19/2016 Overview: Hx of anxiety. Takes ativan BID at home. Mood stable. Plan to continue as an inpatient and increase dose as needed ASA CLASS II 11/25/2002 11/06/2011 Aortic valve disorder 12/19/2016 Overview: Dr. Mckay documented as of this encounter (statuses as of 08/25/2022) [facility] History of Past illness Narrative* Problem Noted Date Resolved Date Pseudopolyp of ascending colon without complicat ion 05/15/2017 08/31/2020 Microscopic hematuria 05/17/2016 08/31/2020 Angiomyolipoma 05/17/2016 08/31/2020 Overview: Unchanged on recent ct scan Hyperdense renal cyst 05/17/2016 12/07/2021 Overview: Unchanged on recent ct scan Acute right-sided low back pain with right-sided sciatica 03/23/2016 12/19/2016 H/o HTN 10/14/2013 07/06/2022 Overview: Currently normotensive. On BB, IV lasix- will change to po at discharge. Pneumoperitoneum 10/10/2013 04/30/2014 Overview: CXR: Pneumoperitoneum noted under right hemidaphragm. D/w CTS and Cards. Pt asymptomatic. No fevers or tachycardia. Denies any abdominal pain. 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 LVH with apparent volume responsiveness (hemodynamics seemed best with CVP approx 15 and PAD approx 20). DVT prophylaxis: Encourage increased activity, SHAWN hose. Pain following surgery or procedure 10/08/2013 10/14/2013 Overview: Pt w/multiple medication allergies. Reports adequate pain control on current regimen. Lidoderm patches discontinued and steroids are being tapered (started prophylactically for adhesive allergy). Will uptitrate regimen as needed. Hyperchloremic metabolic acidosis 10/08/2013 10/09/2013 Overview: 10/08/13 - slightly acidotic with elevated chloride. Anion pina = +14, delta-delta = -7. No hx or s/s of impaired renal function. Will continue to monitor for now, with plan to treat if hyperchloremia/acidosis persists or worsens Atelectasis/FVO/Pleural effusions 10/08/2013 04/30/2014 Overview: On RA. Wt 2.1 kg above pre-op. CXR: b/l atelectasis. Small effusions. Cont lasix for aggressive diuresis. Plan to continue home bronchodilators, Enc OOB, amb, C&DB, PEP. Mechanically assisted ventilation 10/07/2013 10/08/2013 Overview: 10/07/2013 Residual anesthesia still on board. Will WTE once fully awake and appropriate extubation criteria met, including adequate hemostasis. Acute blood loss anemia 10/07/2013 04/30/20 14 Overview: 10/07/2013 Intraop blood loss with last intraop Hgb of 10.4 Level is adequate for oxygen delivery. Presently minimal need for vasoactive hemodynamic support. Plan Monitor closely for additional bleeding or coagulopathy Fluid resuscitation as needed Consider blood products if acute decompensation or further bleeding, or with Hgb < 7. 10/09/13 - H/H stable, will continue to monitor Cardiac insufficiency following cardiac surgery 10/07/2013 10/09/2013 Overview: 10/07/2013 Immediately postop, needs low dose inotropic support with epinephrine as well as fluid resuscitation to ensure euvolemia (given her LVH and stage 2 diastolic dysfunction). Wean epi as tolerated. Avoid tachycardia 10/08/13 - wean Epi gtt, high fluid balance - begin lasix Stress hyperglycemia 10/07/2013 12/19/2016 Overview: No hx of DM. Will continue SSI to keep glucose < 160 in post-op period. Tapering steroids. Discharge Planning 10/06/2013 01/02/2014 Overview: Discharge today 10.14.2013. Lives in [facility] with . Scheduled appointment with [place] [facility] at 10:30 on 10.[address] Kim at 11:30 on 10.16.2013. H/o Anxiety 10/06/2013 12/19/2016 Overview: Hx of anxiety. Takes ativan BID at home. Mood stable. Plan to continue as an inpatient and increase dose as needed ASA CLASS II 11/25/2002 11/06/2011 Aortic valve disorder 12/19/2016 Overview: Dr. Mckay documented as of this encounter (statuses as of 08/28/2022) [facility] History of Past illness Narrative* Problem Noted Date Resolved Date Pseudopolyp of ascending colon without complicat ion 05/15/2017 08/31/2020 Microscopic hematuria 05/17/2016 08/31/2020 Angiomyolipoma 05/17/2016 08/31/2020 Overview: Unchanged on recent ct scan Hyperdense renal cyst 05/17/2016 12/07/2021 Overview: Unchanged on recent ct scan Acute right-sided low back pain with right-sided sciatica 03/23/2016 12/19/2016 H/o HTN 10/14/2013 07/06/2022 Overview: Currently normotensive. On BB, IV lasix- will change to po at discharge. Pneumoperitoneum 10/10/2013 04/30/2014 Overview: CXR: Pneumoperitoneum noted under right hemidaphragm. D/w CTS and Cards. Pt asymptomatic. No fevers or tachycardia. Denies any abdominal pain. 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 LVH with apparent volume responsiveness (hemodynamics seemed best with CVP approx 15 and PAD approx 20). DVT prophylaxis: Encourage increased activity, SHAWN hose. Pain following surgery or procedure 10/08/2013 10/14/2013 Overview: Pt w/multiple medication allergies. Reports adequate pain control on current regimen. Lidoderm patches discontinued and steroids are being tapered (started prophylactically for adhesive allergy). Will uptitrate regimen as needed. Hyperchloremic metabolic acidosis 10/08/2013 10/09/2013 Overview: 10/08/13 - slightly acidotic with elevated chloride. Anion pina = +14, delta-delta = -7. No hx or s/s of impaired renal function. Will continue to monitor for now, with plan to treat if hyperchloremia/acidosis persists or worsens Atelectasis/FVO/Pleural effusions 10/08/2013 04/30/2014 Overview: On RA. Wt 2.1 kg above pre-op. CXR: b/l atelectasis. Small effusions. Cont lasix for aggressive diuresis. Plan to continue home bronchodilators, Enc OOB, amb, C&DB, PEP. Mechanically assisted ventilation 10/07/2013 10/08/2013 Overview: 10/07/2013 Residual anesthesia still on board. Will WTE once fully awake and appropriate extubation criteria met, including adequate hemostasis. Acute blood loss anemia 10/07/2013 04/30/20 Overview: 10/07/2013 Intraop blood loss with last intraop Hgb of 10.4 Level is adequate for oxygen delivery. Presently minimal need for vasoactive hemodynamic support. Plan Monitor closely for additional bleeding or coagulopathy Fluid resuscitation as needed Consider blood products if acute decompensation or further bleeding, or with Hgb < 7. 10/09/13 - H/H stable, will continue to monitor Cardiac insufficiency following cardiac surgery 10/07/2013 10/09/2013 Overview: 10/07/2013 Immediately postop, needs low dose inotropic support with epinephrine as well as fluid resuscitation to ensure euvolemia (given her LVH and stage 2 diastolic dysfunction). Wean epi as tolerated. Avoid tachycardia 10/08/13 - wean Epi gtt, high fluid balance - begin lasix Stress hyperglycemia 10/07/2013 12/19/2016 Overview: No hx of DM. Will continue SSI to keep glucose < 160 in post-op period. Tapering steroids. Discharge Planning 10/06/2013 01/02/2014 Overview: Discharge today 10.14.2013. Lives in [facility] with . Scheduled appointment with [place] [facility] at 10:30 on [address] Kim at 11:30 on 10.16.2013. H/o Anxiety 10/06/2013 12/19/2016 Overview: Hx of anxiety. Takes ativan BID at home. Mood stable. Plan to continue as an inpatient and increase dose as needed ASA CLASS II 11/25/2002 11/06/2011 Aortic valve disorder 12/19/2016 Overview: Dr. Mckay documented as of this encounter (statuses as of 09/01/2022) [facility] History of Past illness Narrative* Problem Noted Date Resolved Date Pseudopolyp of ascending colon without complicat ion 05/15/2017 08/31/2020 Microscopic hematuria 05/17/2016 08/31/2020 Angiomyolipoma 05/17/2016 08/31/2020 Overview: Unchanged on recent ct scan Hyperdense renal cyst 05/17/2016 12/07/2021 Overview: Unchanged on recent ct scan Acute right-sided low back pain with right-sided sciatica 03/23/2016 12/19/2016 H/o HTN 10/14/2013 07/06/2022 Overview: Currently normotensive. On BB, IV lasix- will change to po at discharge. Pneumoperitoneum 10/10/2013 04/30/2014 Overview: CXR: Pneumoperitoneum noted under right hemidaphragm. D/w CTS and Cards. Pt asymptomatic. No fevers or tachycardia. Denies any abdominal pain. 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 LVH with apparent volume responsiveness (hemodynamics seemed best with CVP approx 15 and PAD approx 20). DVT prophylaxis: Encourage increased activity, SHAWN hose. Pain following surgery or procedure 10/08/2013 10/14/2013 Overview: Pt w/multiple medication allergies. Reports adequate pain control on current regimen. Lidoderm patches discontinued and steroids are being tapered (started prophylactically for adhesive allergy). Will uptitrate regimen as needed. Hyperchloremic metabolic acidosis 10/08/2013 10/09/2013 Overview: 10/08/13 - slightly acidotic with elevated chloride. Anion pina = +14, delta-delta = -7. No hx or s/s of impaired renal function. Will continue to monitor for now, with plan to treat if hyperchloremia/acidosis persists or worsens Atelectasis/FVO/Pleural effusions 10/08/2013 04/30/2014 Overview: On RA. Wt 2.1 kg above pre-op. CXR: b/l atelectasis. Small effusions. Cont lasix for aggressive diuresis. Plan to continue home bronchodilators, Enc OOB, amb, C&DB, PEP. Mechanically assisted ventilation 10/07/2013 10/08/2013 Overview: 10/07/2013 Residual anesthesia still on board. Will WTE once fully awake and appropriate extubation criteria met, including adequate hemostasis. Acute blood loss anemia 10/07/2013 04/30/20 Overview: 10/07/2013 Intraop blood loss with last intraop Hgb of 10.4 Level is adequate for oxygen delivery. Presently minimal need for vasoactive hemodynamic support. Plan Monitor closely for additional bleeding or coagulopathy Fluid resuscitation as needed Consider blood products if acute decompensation or further bleeding, or with Hgb < 7. 10/09/13 - H/H stable, will continue to monitor Cardiac insufficiency following cardiac surgery 10/07/2013 10/09/2013 Overview: 10/07/2013 Immediately postop, needs low dose inotropic support with epinephrine as well as fluid resuscitation to ensure euvolemia (given her LVH and stage 2 diastolic dysfunction). Wean epi as tolerated. Avoid tachycardia 10/08/13 - wean Epi gtt, high fluid balance - begin lasix Stress hyperglycemia 10/07/2013 12/19/2016 Overview: No hx of DM. Will continue SSI to keep glucose < 160 in post-op period. Tapering steroids. Discharge Planning 10/06/2013 01/02/2014 Overview: Discharge today 10.14.2013. Lives in [facility] with . Scheduled appointment with [place] [facility] at 10:30 on 10.[address] Kim at 11:30 on 10.16.2013. H/o Anxiety 10/06/2013 12/19/2016 Overview: Hx of anxiety. Takes ativan BID at home. Mood stable. Plan to continue as an inpatient and increase dose as needed ASA CLASS II 11/25/2002 11/06/2011 Aortic valve disorder 12/19/2016 Overview: Dr. Mckay documented as of this encounter (statuses as of 09/03/2022) [facility] History of Past illness Narrative* Problem Noted Date Resolved Date Pseudopolyp of ascending colon without complicat ion 05/15/2017 08/31/2020 Microscopic hematuria 05/17/2016 08/31/2020 Angiomyolipoma 05/17/2016 08/31/2020 Overview: Unchanged on recent ct scan Hyperdense renal cyst 05/17/2016 12/07/2021 Overview: Unchanged on recent ct scan Acute right-sided low back pain with right-sided sciatica 03/23/2016 12/19/2016 H/o HTN 10/14/2013 07/06/2022 Overview: Currently normotensive. On BB, IV lasix- will change to po at discharge. Pneumoperitoneum 10/10/2013 04/30/2014 Overview: CXR: Pneumoperitoneum noted under right hemidaphragm. D/w CTS and Cards. Pt asymptomatic. No fevers or tachycardia. Denies any abdominal pain. 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 LVH with apparent volume responsiveness (hemodynamics seemed best with CVP approx 15 and PAD approx 20). DVT prophylaxis: Encourage increased activity, SHAWN hose. Pain following surgery or procedure 10/08/2013 10/14/2013 Overview: Pt w/multiple medication allergies. Reports adequate pain control on current regimen. Lidoderm patches discontinued and steroids are being tapered (started prophylactically for adhesive allergy). Will uptitrate regimen as needed. Hyperchloremic metabolic acidosis 10/08/2013 10/09/2013 Overview: 10/08/13 - slightly acidotic with elevated chloride. Anion pina = +14, delta-delta = -7. No hx or s/s of impaired renal function. Will continue to monitor for now, with plan to treat if hyperchloremia/acidosis persists or worsens Atelectasis/FVO/Pleural effusions 10/08/2013 04/30/2014 Overview: On RA. Wt 2.1 kg above pre-op. CXR: b/l atelectasis. Small effusions. Cont lasix for aggressive diuresis. Plan to continue home bronchodilators, Enc OOB, amb, C&DB, PEP. Mechanically assisted ventilation 10/07/2013 10/08/2013 Overview: 10/07/2013 Residual anesthesia still on board. Will WTE once fully awake and appropriate extubation criteria met, including adequate hemostasis. Acute blood loss anemia 10/07/2013 04/30/20 Overview: 10/07/2013 Intraop blood loss with last intraop Hgb of 10.4 Level is adequate for oxygen delivery. Presently minimal need for vasoactive hemodynamic support. Plan Monitor closely for additional bleeding or coagulopathy Fluid resuscitation as needed Consider blood products if acute decompensation or further bleeding, or with Hgb < 7. 10/09/13 - H/H stable, will continue to monitor Cardiac insufficiency following cardiac surgery 10/07/2013 10/09/2013 Overview: 10/07/2013 Immediately postop, needs low dose inotropic support with epinephrine as well as fluid resuscitation to ensure euvolemia (given her LVH and stage 2 diastolic dysfunction). Wean epi as tolerated. Avoid tachycardia 10/08/13 - wean Epi gtt, high fluid balance - begin lasix Stress hyperglycemia 10/07/2013 12/19/2016 Overview: No hx of DM. Will continue SSI to keep glucose < 160 in post-op period. Tapering steroids. Discharge Planning 10/06/2013 01/02/2014 Overview: Discharge today 10.14.2013. Lives in [facility] with . Scheduled appointment with [place] [facility] at 10:30 on [address] Kim at 11:30 on 10.16.2013. H/o Anxiety 10/06/2013 12/19/2016 Overview: Hx of anxiety. Takes ativan BID at home. Mood stable. Plan to continue as an inpatient and increase dose as needed ASA CLASS II 11/25/2002 11/06/2011 Aortic valve disorder 12/19/2016 Overview: Dr. Mckay documented as of this encounter (statuses as of 09/04/2022) [facility] of Past illness Narrative* Problem Noted Date Resolved Date Pseudopolyp of ascending colon without complicat ion 05/15/2017 08/31/2020 Microscopic hematuria 05/17/2016 08/31/2020 Angiomyolipoma 05/17/2016 08/31/2020 Overview: Unchanged on recent ct scan Hyperdense renal cyst 05/17/2016 12/07/2021 Overview: Unchanged on recent ct scan Acute right-sided low back pain with right-sided sciatica 03/23/2016 12/19/2016 H/o HTN 10/14/2013 07/06/2022 Overview: Currently normotensive. On BB, IV lasix- will change to po at discharge. Pneumoperitoneum 10/10/2013 04/30/2014 Overview: CXR: Pneumoperitoneum noted under right hemidaphragm. D/w CTS and Cards. Pt asymptomatic. No fevers or tachycardia. Denies any abdominal pain. 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 LVH with apparent volume responsiveness (hemodynamics seemed best with CVP approx 15 and PAD approx 20). DVT prophylaxis: Encourage increased activity, SHAWN hose. Pain following surgery or procedure 10/08/2013 10/14/2013 Overview: Pt w/multiple medication allergies. Reports adequate pain control on current regimen. Lidoderm patches discontinued and steroids are being tapered (started prophylactically for adhesive allergy). Will uptitrate regimen as needed. Hyperchloremic metabolic acidosis 10/08/2013 10/09/2013 Overview: 10/08/13 - slightly acidotic with elevated chloride. Anion pina = +14, delta-delta = -7. No hx or s/s of impaired renal function. Will continue to monitor for now, with plan to treat if hyperchloremia/acidosis persists or worsens Atelectasis/FVO/Pleural effusions 10/08/2013 04/30/2014 Overview: On RA. Wt 2.1 kg above pre-op. CXR: b/l atelectasis. Small effusions. Cont lasix for aggressive diuresis. Plan to continue home bronchodilators, Enc OOB, amb, C&DB, PEP. Mechanically assisted ventilation 10/07/2013 10/08/2013 Overview: 10/07/2013 Residual anesthesia still on board. Will WTE once fully awake and appropriate extubation criteria met, including adequate hemostasis. Acute blood loss anemia 10/07/2013 04/30/20 14 Overview: 10/07/2013 Intraop blood loss with last intraop Hgb of 10.4 Level is adequate for oxygen delivery. Presently minimal need for vasoactive hemodynamic support. Plan Monitor closely for additional bleeding or coagulopathy Fluid resuscitation as needed Consider blood products if acute decompensation or further bleeding, or with Hgb < 7. 10/09/13 - H/H stable, will continue to monitor Cardiac insufficiency following cardiac surgery 10/07/2013 10/09/2013 Overview: 10/07/2013 Immediately postop, needs low dose inotropic support with epinephrine as well as fluid resuscitation to ensure euvolemia (given her LVH and stage 2 diastolic dysfunction). Wean epi as tolerated. Avoid tachycardia 10/08/13 - wean Epi gtt, high fluid balance - begin lasix Stress hyperglycemia 10/07/2013 12/19/2016 Overview: No hx of DM. Will continue SSI to keep glucose < 160 in post-op period. Tapering steroids. Discharge Planning 10/06/2013 01/02/2014 Overview: Discharge today 10.14.2013. Lives in [facility] with . Scheduled appointment with [place] [facility] at 10:30 on [address] Kim at 11:30 on 10.16.2013. H/o Anxiety 10/06/2013 12/19/2016 Overview: Hx of anxiety. Takes ativan BID at home. Mood stable. Plan to continue as an inpatient and increase dose as needed ASA CLASS II 11/25/2002 11/06/2011 Aortic valve disorder 12/19/2016 Overview: Dr. Mckay documented as of this encounter (statuses as of 09/13/2022) [facility] History of Past illness Narrative* Problem Noted Date Resolved Date Pseudopolyp of ascending colon without complicat ion 05/15/2017 08/31/2020 Microscopic hematuria 05/17/2016 08/31/2020 Angiomyolipoma 05/17/2016 08/31/2020 Overview: Unchanged on recent ct scan Hyperdense renal cyst 05/17/2016 12/07/2021 Overview: Unchanged on recent ct scan Acute right-sided low back pain with right-sided sciatica 03/23/2016 12/19/2016 H/o HTN 10/14/2013 07/06/2022 Overview: Currently normotensive. On BB, IV lasix- will change to po at discharge. Pneumoperitoneum 10/10/2013 04/30/2014 Overview: CXR: Pneumoperitoneum noted under right hemidaphragm. D/w CTS and Cards. Pt asymptomatic. No fevers or tachycardia. Denies any abdominal pain. 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 LVH with apparent volume responsiveness (hemodynamics seemed best with CVP approx 15 and PAD approx 20). DVT prophylaxis: Encourage increased activity, SHAWN hose. Pain following surgery or procedure 10/08/2013 10/14/2013 Overview: Pt w/multiple medication allergies. Reports adequate pain control on current regimen. Lidoderm patches discontinued and steroids are being tapered (started prophylactically for adhesive allergy). Will uptitrate regimen as needed. Hyperchloremic metabolic acidosis 10/08/2013 10/09/2013 Overview: 10/08/13 - slightly acidotic with elevated chloride. Anion pina = +14, delta-delta = -7. No hx or s/s of impaired renal function. Will continue to monitor for now, with plan to treat if hyperchloremia/acidosis persists or worsens Atelectasis/FVO/Pleural effusions 10/08/2013 04/30/2014 Overview: On RA. Wt 2.1 kg above pre-op. CXR: b/l atelectasis. Small effusions. Cont lasix for aggressive diuresis. Plan to continue home bronchodilators, Enc OOB, amb, C&DB, PEP. Mechanically assisted ventilation 10/07/2013 10/08/2013 Overview: 10/07/2013 Residual anesthesia still on board. Will WTE once fully awake and appropriate extubation criteria met, including adequate hemostasis. Acute blood loss anemia 10/07/2013 04/30/20 Overview: 10/07/2013 Intraop blood loss with last intraop Hgb of 10.4 Level is adequate for oxygen delivery. Presently minimal need for vasoactive hemodynamic support. Plan Monitor closely for additional bleeding or coagulopathy Fluid resuscitation as needed Consider blood products if acute decompensation or further bleeding, or with Hgb < 7. 10/09/13 - H/H stable, will continue to monitor Cardiac insufficiency following cardiac surgery 10/07/2013 10/09/2013 Overview: 10/07/2013 Immediately postop, needs low dose inotropic support with epinephrine as well as fluid resuscitation to ensure euvolemia (given her LVH and stage 2 diastolic dysfunction). Wean epi as tolerated. Avoid tachycardia 10/08/13 - wean Epi gtt, high fluid balance - begin lasix Stress hyperglycemia 10/07/2013 12/19/2016 Overview: No hx of DM. Will continue SSI to keep glucose < 160 in post-op period. Tapering steroids. Discharge Planning 10/06/2013 01/02/2014 Overview: Discharge today 10.14.2013. Lives in [facility] with . Scheduled appointment with [place] [facility] at 10:30 on [address] Kim at 11:30 on 10.16.2013. H/o Anxiety 10/06/2013 12/19/2016 Overview: Hx of anxiety. Takes ativan BID at home. Mood stable. Plan to continue as an inpatient and increase dose as needed ASA CLASS II 11/25/2002 11/06/2011 Aortic valve disorder 12/19/2016 Overview: Dr. Mckay documented as of this encounter (statuses as of 09/15/2022) [facility] History of Past illness Narrative* Problem Noted Date Resolved Date Pseudopolyp of ascending colon without complicat ion 05/15/2017 08/31/2020 Microscopic hematuria 05/17/2016 08/31/2020 Angiomyolipoma 05/17/2016 08/31/2020 Overview: Unchanged on recent ct scan Hyperdense renal cyst 05/17/2016 12/07/2021 Overview: Unchanged on recent ct scan Acute right-sided low back pain with right-sided sciatica 03/23/2016 12/19/2016 H/o HTN 10/14/2013 07/06/2022 Overview: Currently normotensive. On BB, IV lasix- will change to po at discharge. Pneumoperitoneum 10/10/2013 04/30/2014 Overview: CXR: Pneumoperitoneum noted under right hemidaphragm. D/w CTS and Cards. Pt asymptomatic. No fevers or tachycardia. Denies any abdominal pain. 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 LVH with apparent volume responsiveness (hemodynamics seemed best with CVP approx 15 and PAD approx 20). DVT prophylaxis: Encourage increased activity, SHAWN hose. Pain following surgery or procedure 10/08/2013 10/14/2013 Overview: Pt w/multiple medication allergies. Reports adequate pain control on current regimen. Lidoderm patches discontinued and steroids are being tapered (started prophylactically for adhesive allergy). Will uptitrate regimen as needed. Hyperchloremic metabolic acidosis 10/08/2013 10/09/2013 Overview: 10/08/13 - slightly acidotic with elevated chloride. Anion pina = +14, delta-delta = -7. No hx or s/s of impaired renal function. Will continue to monitor for now, with plan to treat if hyperchloremia/acidosis persists or worsens Atelectasis/FVO/Pleural effusions 10/08/2013 04/30/2014 Overview: On RA. Wt 2.1 kg above pre-op. CXR: b/l atelectasis. Small effusions. Cont lasix for aggressive diuresis. Plan to continue home bronchodilators, Enc OOB, amb, C&DB, PEP. Mechanically assisted ventilation 10/07/2013 10/08/2013 Overview: 10/07/2013 Residual anesthesia still on board. Will WTE once fully awake and appropriate extubation criteria met, including adequate hemostasis. Acute blood loss anemia 10/07/2013 04/30/20 Overview: 10/07/2013 Intraop blood loss with last intraop Hgb of 10.4 Level is adequate for oxygen delivery. Presently minimal need for vasoactive hemodynamic support. Plan Monitor closely for additional bleeding or coagulopathy Fluid resuscitation as needed Consider blood products if acute decompensation or further bleeding, or with Hgb < 7. 10/09/13 - H/H stable, will continue to monitor Cardiac insufficiency following cardiac surgery 10/07/2013 10/09/2013 Overview: 10/07/2013 Immediately postop, needs low dose inotropic support with epinephrine as well as fluid resuscitation to ensure euvolemia (given her LVH and stage 2 diastolic dysfunction). Wean epi as tolerated. Avoid tachycardia 10/08/13 - wean Epi gtt, high fluid balance - begin lasix Stress hyperglycemia 10/07/2013 12/19/2016 Overview: No hx of DM. Will continue SSI to keep glucose < 160 in post-op period. Tapering steroids. Discharge Planning 10/06/2013 01/02/2014 Overview: Discharge today 10.14.2013. Lives in [facility] with . Scheduled appointment with [place] [facility] at 10:30 on 10.[address] Kim at 11:30 on 10.16.2013. H/o Anxiety 10/06/2013 12/19/2016 Overview: Hx of anxiety. Takes ativan BID at home. Mood stable. Plan to continue as an inpatient and increase dose as needed ASA CLASS II 11/25/2002 11/06/2011 Aortic valve disorder 12/19/2016 Overview: Dr. Mckay documented as of this encounter (statuses as of 09/22/2022) [facility] History of Past illness Narrative* Problem Noted Date Resolved Date Pseudopolyp of ascending colon without complicat ion 05/15/2017 08/31/2020 Microscopic hematuria 05/17/2016 08/31/2020 Angiomyolipoma 05/17/2016 08/31/2020 Overview: Unchanged on recent ct scan Hyperdense renal cyst 05/17/2016 12/07/2021 Overview: Unchanged on recent ct scan Acute right-sided low back pain with right-sided sciatica 03/23/2016 12/19/2016 H/o HTN 10/14/2013 07/06/2022 Overview: Currently normotensive. On BB, IV lasix- will change to po at discharge. Pneumoperitoneum 10/10/2013 04/30/2014 Overview: CXR: Pneumoperitoneum noted under right hemidaphragm. D/w CTS and Cards. Pt asymptomatic. No fevers or tachycardia. Denies any abdominal pain. 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 LVH with apparent volume responsiveness (hemodynamics seemed best with CVP approx 15 and PAD approx 20). DVT prophylaxis: Encourage increased activity, SHAWN hose. Pain following surgery or procedure 10/08/2013 10/14/2013 Overview: Pt w/multiple medication allergies. Reports adequate pain control on current regimen. Lidoderm patches discontinued and steroids are being tapered (started prophylactically for adhesive allergy). Will uptitrate regimen as needed. Hyperchloremic metabolic acidosis 10/08/2013 10/09/2013 Overview: 10/08/13 - slightly acidotic with elevated chloride. Anion pina = +14, delta-delta = -7. No hx or s/s of impaired renal function. Will continue to monitor for now, with plan to treat if hyperchloremia/acidosis persists or worsens Atelectasis/FVO/Pleural effusions 10/08/2013 04/30/2014 Overview: On RA. Wt 2.1 kg above pre-op. CXR: b/l atelectasis. Small effusions. Cont lasix for aggressive diuresis. Plan to continue home bronchodilators, Enc OOB, amb, C&DB, PEP. Mechanically assisted ventilation 10/07/2013 10/08/2013 Overview: 10/07/2013 Residual anesthesia still on board. Will WTE once fully awake and appropriate extubation criteria met, including adequate hemostasis. Acute blood loss anemia 10/07/2013 04/30/20 14 Overview: 10/07/2013 Intraop blood loss with last intraop Hgb of 10.4 Level is adequate for oxygen delivery. Presently minimal need for vasoactive hemodynamic support. Plan Monitor closely for additional bleeding or coagulopathy Fluid resuscitation as needed Consider blood products if acute decompensation or further bleeding, or with Hgb < 7. / - H/H stable, will continue to monitor Cardiac insufficiency following cardiac surgery 10/07/2013 10/09/2013 Overview: 10/07/2013 Immediately postop, needs low dose inotropic support with epinephrine as well as fluid resuscitation to ensure euvolemia (given her LVH and stage 2 diastolic dysfunction). Wean epi as tolerated. Avoid tachycardia 10/08/13 - wean Epi gtt, high fluid balance - begin lasix Stress hyperglycemia 10/07/2013 12/19/2016 Overview: No hx of DM. Will continue SSI to keep glucose < 160 in post-op period. Tapering steroids. Discharge Planning 10/06/2013 01/02/2014 Overview: Discharge today 10.14.2013. Lives in [facility] with . Scheduled appointment with [place] [facility] at 10:30 on 10.[address] Kim at 11:30 on 10.16.2013. H/o Anxiety 10/06/2013 12/19/2016 Overview: Hx of anxiety. Takes ativan BID at home. Mood stable. Plan to continue as an inpatient and increase dose as needed ASA CLASS II 11/25/2002 11/06/2011 Aortic valve disorder 12/19/2016 Overview: Dr. Mckay documented as of this encounter (statuses as of 09/26/2022) [facility] History of Past illness Narrative* Problem Noted Date Resolved Date Pseudopolyp of ascending colon without complicat ion 05/15/2017 08/31/2020 Microscopic hematuria 05/17/2016 08/31/2020 Angiomyolipoma 05/17/2016 08/31/2020 Overview: Unchanged on recent ct scan Hyperdense renal cyst 05/17/2016 12/07/2021 Overview: Unchanged on recent ct scan Acute right-sided low back pain with right-sided sciatica 03/23/2016 12/19/2016 H/o HTN 10/14/2013 07/06/2022 Overview: Currently normotensive. On BB, IV lasix- will change to po at discharge. Pneumoperitoneum 10/10/2013 04/30/2014 Overview: CXR: Pneumoperitoneum noted under right hemidaphragm. D/w CTS and Cards. Pt asymptomatic. No fevers or tachycardia. Denies any abdominal pain. 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 LVH with apparent volume responsiveness (hemodynamics seemed best with CVP approx 15 and PAD approx 20). DVT prophylaxis: Encourage increased activity, SHAWN hose. Pain following surgery or procedure 10/08/2013 10/14/2013 Overview: Pt w/multiple medication allergies. Reports adequate pain control on current regimen. Lidoderm patches discontinued and steroids are being tapered (started prophylactically for adhesive allergy). Will uptitrate regimen as needed. Hyperchloremic metabolic acidosis 10/08/2013 10/09/2013 Overview: 10/08/13 - slightly acidotic with elevated chloride. Anion pina = +14, delta-delta = -7. No hx or s/s of impaired renal function. Will continue to monitor for now, with plan to treat if hyperchloremia/acidosis persists or worsens Atelectasis/FVO/Pleural effusions 10/08/2013 04/30/2014 Overview: On RA. Wt 2.1 kg above pre-op. CXR: b/l atelectasis. Small effusions. Cont lasix for aggressive diuresis. Plan to continue home bronchodilators, Enc OOB, amb, C&DB, PEP. Mechanically assisted ventilation 10/07/2013 10/08/2013 Overview: 10/07/2013 Residual anesthesia still on board. Will WTE once fully awake and appropriate extubation criteria met, including adequate hemostasis. Acute blood loss anemia 10/07/2013 04/30/20 14 Overview: 10/07/2013 Intraop blood loss with last intraop Hgb of 10.4 Level is adequate for oxygen delivery. Presently minimal need for vasoactive hemodynamic support. Plan Monitor closely for additional bleeding or coagulopathy Fluid resuscitation as needed Consider blood products if acute decompensation or further bleeding, or with Hgb < 7. 10/09/13 - H/H stable, will continue to monitor Cardiac insufficiency following cardiac surgery 10/07/2013 10/09/2013 Overview: 10/07/2013 Immediately postop, needs low dose inotropic support with epinephrine as well as fluid resuscitation to ensure euvolemia (given her LVH and stage 2 diastolic dysfunction). Wean epi as tolerated. Avoid tachycardia 10/08/13 - wean Epi gtt, high fluid balance - begin lasix Stress hyperglycemia 10/07/2013 12/19/2016 Overview: No hx of DM. Will continue SSI to keep glucose < 160 in post-op period. Tapering steroids. Discharge Planning 10/06/2013 01/02/2014 Overview: Discharge today 10.14.2013. Lives in [facility] with . Scheduled appointment with [place] [facility] at 10:30 on 10.[address] Kim at 11:30 on 10.16.2013. H/o Anxiety 10/06/2013 12/19/2016 Overview: Hx of anxiety. Takes ativan BID at home. Mood stable. Plan to continue as an inpatient and increase dose as needed ASA CLASS II 11/25/2002 11/06/2011 Aortic valve disorder 12/19/2016 Overview: Dr. Mckay documented as of this encounter (statuses as of 09/29/2022) [facility] History of Past illness Narrative* Problem Noted Date Resolved Date Pseudopolyp of ascending colon without complicat ion 05/15/2017 08/31/2020 Microscopic hematuria 05/17/2016 08/31/2020 Angiomyolipoma 05/17/2016 08/31/2020 Overview: Unchanged on recent ct scan Hyperdense renal cyst 05/17/2016 12/07/2021 Overview: Unchanged on recent ct scan Acute right-sided low back pain with right-sided sciatica 03/23/2016 12/19/2016 H/o HTN 10/14/2013 07/06/2022 Overview: Currently normotensive. On BB, IV lasix- will change to po at discharge. Pneumoperitoneum 10/10/2013 04/30/2014 Overview: CXR: Pneumoperitoneum noted under right hemidaphragm. D/w CTS and Cards. Pt asymptomatic. No fevers or tachycardia. Denies any abdominal pain. 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 LVH with apparent volume responsiveness (hemodynamics seemed best with CVP approx 15 and PAD approx 20). DVT prophylaxis: Encourage increased activity, SHAWN hose. Pain following surgery or procedure 10/08/2013 10/14/2013 Overview: Pt w/multiple medication allergies. Reports adequate pain control on current regimen. Lidoderm patches discontinued and steroids are being tapered (started prophylactically for adhesive allergy). Will uptitrate regimen as needed. Hyperchloremic metabolic acidosis 10/08/2013 10/09/2013 Overview: 10/08/13 - slightly acidotic with elevated chloride. Anion pina = +14, delta-delta = -7. No hx or s/s of impaired renal function. Will continue to monitor for now, with plan to treat if hyperchloremia/acidosis persists or worsens Atelectasis/FVO/Pleural effusions 10/08/2013 04/30/2014 Overview: On RA. Wt 2.1 kg above pre-op. CXR: b/l atelectasis. Small effusions. Cont lasix for aggressive diuresis. Plan to continue home bronchodilators, Enc OOB, amb, C&DB, PEP. Mechanically assisted ventilation 10/07/2013 10/08/2013 Overview: 10/07/2013 Residual anesthesia still on board. Will WTE once fully awake and appropriate extubation criteria met, including adequate hemostasis. Acute blood loss anemia 10/07/2013 04/30/20 Overview: 10/07/2013 Intraop blood loss with last intraop Hgb of 10.4 Level is adequate for oxygen delivery. Presently minimal need for vasoactive hemodynamic support. Plan Monitor closely for additional bleeding or coagulopathy Fluid resuscitation as needed Consider blood products if acute decompensation or further bleeding, or with Hgb < 7. 10/09/13 - H/H stable, will continue to monitor Cardiac insufficiency following cardiac surgery 10/07/2013 10/09/2013 Overview: 10/07/2013 Immediately postop, needs low dose inotropic support with epinephrine as well as fluid resuscitation to ensure euvolemia (given her LVH and stage 2 diastolic dysfunction). Wean epi as tolerated. Avoid tachycardia 10/08/13 - wean Epi gtt, high fluid balance - begin lasix Stress hyperglycemia 10/07/2013 12/19/2016 Overview: No hx of DM. Will continue SSI to keep glucose < 160 in post-op period. Tapering steroids. Discharge Planning 10/06/2013 01/02/2014 Overview: Discharge today 10.14.2013. Lives in [facility] with . Scheduled appointment with [place] [facility] at 10:30 on [address] Kim at 11:30 on 10.16.2013. H/o Anxiety 10/06/2013 12/19/2016 Overview: Hx of anxiety. Takes ativan BID at home. Mood stable. Plan to continue as an inpatient and increase dose as needed ASA CLASS II 11/25/2002 11/06/2011 Aortic valve disorder 12/19/2016 Overview: Dr. Mckay documented as of this encounter (statuses as of 10/03/2022) [facility] of Past illness Narrative* Problem Noted Date Resolved Date Pseudopolyp of ascending colon without complicat ion 05/15/2017 08/31/2020 Microscopic hematuria 05/17/2016 08/31/2020 Angiomyolipoma 05/17/2016 08/31/2020 Overview: Unchanged on recent ct scan Hyperdense renal cyst 05/17/2016 12/07/2021 Overview: Unchanged on recent ct scan Acute right-sided low back pain with right-sided sciatica 03/23/2016 12/19/2016 H/o HTN 10/14/2013 07/06/2022 Overview: Currently normotensive. On BB, IV lasix- will change to po at discharge. Pneumoperitoneum 10/10/2013 04/30/2014 Overview: CXR: Pneumoperitoneum noted under right hemidaphragm. D/w CTS and Cards. Pt asymptomatic. No fevers or tachycardia. Denies any abdominal pain. 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 LVH with apparent volume responsiveness (hemodynamics seemed best with CVP approx 15 and PAD approx 20). DVT prophylaxis: Encourage increased activity, SHAWN hose. Pain following surgery or procedure 10/08/2013 10/14/2013 Overview: Pt w/multiple medication allergies. Reports adequate pain control on current regimen. Lidoderm patches discontinued and steroids are being tapered (started prophylactically for adhesive allergy). Will uptitrate regimen as needed. Hyperchloremic metabolic acidosis 10/08/2013 10/09/2013 Overview: 10/08/13 - slightly acidotic with elevated chloride. Anion pina = +14, delta-delta = -7. No hx or s/s of impaired renal function. Will continue to monitor for now, with plan to treat if hyperchloremia/acidosis persists or worsens Atelectasis/FVO/Pleural effusions 10/08/2013 04/30/2014 Overview: On RA. Wt 2.1 kg above pre-op. CXR: b/l atelectasis. Small effusions. Cont lasix for aggressive diuresis. Plan to continue home bronchodilators, Enc OOB, amb, C&DB, PEP. Mechanically assisted ventilation 10/07/2013 10/08/2013 Overview: 10/07/2013 Residual anesthesia still on board. Will WTE once fully awake and appropriate extubation criteria met, including adequate hemostasis. Acute blood loss anemia 10/07/2013 04/30/20 Overview: 10/07/2013 Intraop blood loss with last intraop Hgb of 10.4 Level is adequate for oxygen delivery. Presently minimal need for vasoactive hemodynamic support. Plan Monitor closely for additional bleeding or coagulopathy Fluid resuscitation as needed Consider blood products if acute decompensation or further bleeding, or with Hgb < 7. 10/09/13 - H/H stable, will continue to monitor Cardiac insufficiency following cardiac surgery 10/07/2013 10/09/2013 Overview: 10/07/2013 Immediately postop, needs low dose inotropic support with epinephrine as well as fluid resuscitation to ensure euvolemia (given her LVH and stage 2 diastolic dysfunction). Wean epi as tolerated. Avoid tachycardia 10/08/13 - wean Epi gtt, high fluid balance - begin lasix Stress hyperglycemia 10/07/2013 12/19/2016 Overview: No hx of DM. Will continue SSI to keep glucose < 160 in post-op period. Tapering steroids. Discharge Planning 10/06/2013 01/02/2014 Overview: Discharge today 10.14.2013. Lives in [facility] with . Scheduled appointment with [place] [facility] at 10:30 on 10.[address] Kim at 11:30 on 10.16.2013. H/o Anxiety 10/06/2013 12/19/2016 Overview: Hx of anxiety. Takes ativan BID at home. Mood stable. Plan to continue as an inpatient and increase dose as needed ASA CLASS II 11/25/2002 11/06/2011 Aortic valve disorder 12/19/2016 Overview: Dr. Mckay documented as of this encounter (statuses as of 10/04/2022) [facility] History of Past illness Narrative* Problem Noted Date Resolved Date Pseudopolyp of ascending colon without complicat ion 05/15/2017 08/31/2020 Microscopic hematuria 05/17/2016 08/31/2020 Angiomyolipoma 05/17/2016 08/31/2020 Overview: Unchanged on recent ct scan Hyperdense renal cyst 05/17/2016 12/07/2021 Overview: Unchanged on recent ct scan Acute right-sided low back pain with right-sided sciatica 03/23/2016 12/19/2016 H/o HTN 10/14/2013 07/06/2022 Overview: Currently normotensive. On BB, IV lasix- will change to po at discharge. Pneumoperitoneum 10/10/2013 04/30/2014 Overview: CXR: Pneumoperitoneum noted under right hemidaphragm. D/w CTS and Cards. Pt asymptomatic. No fevers or tachycardia. Denies any abdominal pain. 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 LVH with apparent volume responsiveness (hemodynamics seemed best with CVP approx 15 and PAD approx 20). DVT prophylaxis: Encourage increased activity, SHAWN hose. Pain following surgery or procedure 10/08/2013 10/14/2013 Overview: Pt w/multiple medication allergies. Reports adequate pain control on current regimen. Lidoderm patches discontinued and steroids are being tapered (started prophylactically for adhesive allergy). Will uptitrate regimen as needed. Hyperchloremic metabolic acidosis 10/08/2013 10/09/2013 Overview: 10/08/13 - slightly acidotic with elevated chloride. Anion pina = +14, delta-delta = -7. No hx or s/s of impaired renal function. Will continue to monitor for now, with plan to treat if hyperchloremia/acidosis persists or worsens Atelectasis/FVO/Pleural effusions 10/08/2013 04/30/2014 Overview: On RA. Wt 2.1 kg above pre-op. CXR: b/l atelectasis. Small effusions. Cont lasix for aggressive diuresis. Plan to continue home bronchodilators, Enc OOB, amb, C&DB, PEP. Mechanically assisted ventilation 10/07/2013 10/08/2013 Overview: 10/07/2013 Residual anesthesia still on board. Will WTE once fully awake and appropriate extubation criteria met, including adequate hemostasis. Acute blood loss anemia 10/07/2013 04/30/20 14 Overview: 10/07/2013 Intraop blood loss with last intraop Hgb of 10.4 Level is adequate for oxygen delivery. Presently minimal need for vasoactive hemodynamic support. Plan Monitor closely for additional bleeding or coagulopathy Fluid resuscitation as needed Consider blood products if acute decompensation or further bleeding, or with Hgb < 7. 10/09/13 - H/H stable, will continue to monitor Cardiac insufficiency following cardiac surgery 10/07/2013 10/09/2013 Overview: 10/07/2013 Immediately postop, needs low dose inotropic support with epinephrine as well as fluid resuscitation to ensure euvolemia (given her LVH and stage 2 diastolic dysfunction). Wean epi as tolerated. Avoid tachycardia 10/08/13 - wean Epi gtt, high fluid balance - begin lasix Stress hyperglycemia 10/07/2013 12/19/2016 Overview: No hx of DM. Will continue SSI to keep glucose < 160 in post-op period. Tapering steroids. Discharge Planning 10/06/2013 01/02/2014 Overview: Discharge today 10.14.2013. Lives in [facility] with . Scheduled appointment with [place] [facility] at 10:30 on 10.[address] Kim at 11:30 on 10.16.2013. H/o Anxiety 10/06/2013 12/19/2016 Overview: Hx of anxiety. Takes ativan BID at home. Mood stable. Plan to continue as an inpatient and increase dose as needed ASA CLASS II 11/25/2002 11/06/2011 Aortic valve disorder 12/19/2016 Overview: Dr. Mcaky documented as of this encounter (statuses as of 10/06/2022) [facility] History of Past illness Narrative* Problem Noted Date Resolved Date Pseudopolyp of ascending colon without complicat ion 05/15/2017 08/31/2020 Microscopic hematuria 05/17/2016 08/31/2020 Angiomyolipoma 05/17/2016 08/31/2020 Overview: Unchanged on recent ct scan Hyperdense renal cyst 05/17/2016 12/07/2021 Overview: Unchanged on recent ct scan Acute right-sided low back pain with right-sided sciatica 03/23/2016 12/19/2016 H/o HTN 10/14/2013 07/06/2022 Overview: Currently normotensive. On BB, IV lasix- will change to po at discharge. Pneumoperitoneum 10/10/2013 04/30/2014 Overview: CXR: Pneumoperitoneum noted under right hemidaphragm. D/w CTS and Cards. Pt asymptomatic. No fevers or tachycardia. Denies any abdominal pain. 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 LVH with apparent volume responsiveness (hemodynamics seemed best with CVP approx 15 and PAD approx 20). DVT prophylaxis: Encourage increased activity, SHAWN hose. Pain following surgery or procedure 10/08/2013 10/14/2013 Overview: Pt w/multiple medication allergies. Reports adequate pain control on current regimen. Lidoderm patches discontinued and steroids are being tapered (started prophylactically for adhesive allergy). Will uptitrate regimen as needed. Hyperchloremic metabolic acidosis 10/08/2013 10/09/2013 Overview: 10/08/13 - slightly acidotic with elevated chloride. Anion pina = +14, delta-delta = -7. No hx or s/s of impaired renal function. Will continue to monitor for now, with plan to treat if hyperchloremia/acidosis persists or worsens Atelectasis/FVO/Pleural effusions 10/08/2013 04/30/2014 Overview: On RA. Wt 2.1 kg above pre-op. CXR: b/l atelectasis. Small effusions. Cont lasix for aggressive diuresis. Plan to continue home bronchodilators, Enc OOB, amb, C&DB, PEP. Mechanically assisted ventilation 10/07/2013 10/08/2013 Overview: 10/07/2013 Residual anesthesia still on board. Will WTE once fully awake and appropriate extubation criteria met, including adequate hemostasis. Acute blood loss anemia 10/07/2013 04/30/20 Overview: 10/07/2013 Intraop blood loss with last intraop Hgb of 10.4 Level is adequate for oxygen delivery. Presently minimal need for vasoactive hemodynamic support. Plan Monitor closely for additional bleeding or coagulopathy Fluid resuscitation as needed Consider blood products if acute decompensation or further bleeding, or with Hgb < 7. 10/09/13 - H/H stable, will continue to monitor Cardiac insufficiency following cardiac surgery 10/07/2013 10/09/2013 Overview: 10/07/2013 Immediately postop, needs low dose inotropic support with epinephrine as well as fluid resuscitation to ensure euvolemia (given her LVH and stage 2 diastolic dysfunction). Wean epi as tolerated. Avoid tachycardia 10/08/13 - wean Epi gtt, high fluid balance - begin lasix Stress hyperglycemia 10/07/2013 12/19/2016 Overview: No hx of DM. Will continue SSI to keep glucose < 160 in post-op period. Tapering steroids. Discharge Planning 10/06/2013 01/02/2014 Overview: Discharge today 10.14.2013. Lives in [facility] with . Scheduled appointment with [place] [facility] at 10:30 on 10.[address] Kim at 11:30 on 10.16.2013. H/o Anxiety 10/06/2013 12/19/2016 Overview: Hx of anxiety. Takes ativan BID at home. Mood stable. Plan to continue as an inpatient and increase dose as needed ASA CLASS II 11/25/2002 11/06/2011 Aortic valve disorder 12/19/2016 Overview: Dr. Mckay documented as of this encounter (statuses as of 10/08/2022) [facility] History of Past illness Narrative* Problem Noted Date Resolved Date Pseudopolyp of ascending colon without complicat ion 05/15/2017 08/31/2020 Microscopic hematuria 05/17/2016 08/31/2020 Angiomyolipoma 05/17/2016 08/31/2020 Overview: Unchanged on recent ct scan Hyperdense renal cyst 05/17/2016 12/07/2021 Overview: Unchanged on recent ct scan Acute right-sided low back pain with right-sided sciatica 03/23/2016 12/19/2016 H/o HTN 10/14/2013 07/06/2022 Overview: Currently normotensive. On BB, IV lasix- will change to po at discharge. Pneumoperitoneum 10/10/2013 04/30/2014 Overview: CXR: Pneumoperitoneum noted under right hemidaphragm. D/w CTS and Cards. Pt asymptomatic. No fevers or tachycardia. Denies any abdominal pain. 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 LVH with apparent volume responsiveness (hemodynamics seemed best with CVP approx 15 and PAD approx 20). DVT prophylaxis: Encourage increased activity, SHAWN hose. Pain following surgery or procedure 10/08/2013 10/14/2013 Overview: Pt w/multiple medication allergies. Reports adequate pain control on current regimen. Lidoderm patches discontinued and steroids are being tapered (started prophylactically for adhesive allergy). Will uptitrate regimen as needed. Hyperchloremic metabolic acidosis 10/08/2013 10/09/2013 Overview: 10/08/13 - slightly acidotic with elevated chloride. Anion pina = +14, delta-delta = -7. No hx or s/s of impaired renal function. Will continue to monitor for now, with plan to treat if hyperchloremia/acidosis persists or worsens Atelectasis/FVO/Pleural effusions 10/08/2013 04/30/2014 Overview: On RA. Wt 2.1 kg above pre-op. CXR: b/l atelectasis. Small effusions. Cont lasix for aggressive diuresis. Plan to continue home bronchodilators, Enc OOB, amb, C&DB, PEP. Mechanically assisted ventilation 10/07/2013 10/08/2013 Overview: 10/07/2013 Residual anesthesia still on board. Will WTE once fully awake and appropriate extubation criteria met, including adequate hemostasis. Acute blood loss anemia 10/07/2013 04/30/20 Overview: 10/07/2013 Intraop blood loss with last intraop Hgb of 10.4 Level is adequate for oxygen delivery. Presently minimal need for vasoactive hemodynamic support. Plan Monitor closely for additional bleeding or coagulopathy Fluid resuscitation as needed Consider blood products if acute decompensation or further bleeding, or with Hgb < 7. 10/09/13 - H/H stable, will continue to monitor Cardiac insufficiency following cardiac surgery 10/07/2013 10/09/2013 Overview: 10/07/2013 Immediately postop, needs low dose inotropic support with epinephrine as well as fluid resuscitation to ensure euvolemia (given her LVH and stage 2 diastolic dysfunction). Wean epi as tolerated. Avoid tachycardia 10/08/13 - wean Epi gtt, high fluid balance - begin lasix Stress hyperglycemia 10/07/2013 12/19/2016 Overview: No hx of DM. Will continue SSI to keep glucose < 160 in post-op period. Tapering steroids. Discharge Planning 10/06/2013 01/02/2014 Overview: Discharge today 10.14.2013. Lives in [facility] with . Scheduled appointment with [place] [facility] at 10:30 on 10.[address] Kim at 11:30 on 10.16.2013. H/o Anxiety 10/06/2013 12/19/2016 Overview: Hx of anxiety. Takes ativan BID at home. Mood stable. Plan to continue as an inpatient and increase dose as needed ASA CLASS II 11/25/2002 11/06/2011 Aortic valve disorder 12/19/2016 Overview: Dr. Mckay documented as of this encounter (statuses as of 10/10/2022) [facility] History of Past illness Narrative* Problem Noted Date Resolved Date Pseudopolyp of ascending colon without complicat ion 05/15/2017 08/31/2020 Microscopic hematuria 05/17/2016 08/31/2020 Angiomyolipoma 05/17/2016 08/31/2020 Overview: Unchanged on recent ct scan Hyperdense renal cyst 05/17/2016 12/07/2021 Overview: Unchanged on recent ct scan Acute right-sided low back pain with right-sided sciatica 03/23/2016 12/19/2016 H/o HTN 10/14/2013 07/06/2022 Overview: Currently normotensive. On BB, IV lasix- will change to po at discharge. Pneumoperitoneum 10/10/2013 04/30/2014 Overview: CXR: Pneumoperitoneum noted under right hemidaphragm. D/w CTS and Cards. Pt asymptomatic. No fevers or tachycardia. Denies any abdominal pain. 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 LVH with apparent volume responsiveness (hemodynamics seemed best with CVP approx 15 and PAD approx 20). DVT prophylaxis: Encourage increased activity, SHAWN hose. Pain following surgery or procedure 10/08/2013 10/14/2013 Overview: Pt w/multiple medication allergies. Reports adequate pain control on current regimen. Lidoderm patches discontinued and steroids are being tapered (started prophylactically for adhesive allergy). Will uptitrate regimen as needed. Hyperchloremic metabolic acidosis 10/08/2013 10/09/2013 Overview: 10/08/13 - slightly acidotic with elevated chloride. Anion pina = +14, delta-delta = -7. No hx or s/s of impaired renal function. Will continue to monitor for now, with plan to treat if hyperchloremia/acidosis persists or worsens Atelectasis/FVO/Pleural effusions 10/08/2013 04/30/2014 Overview: On RA. Wt 2.1 kg above pre-op. CXR: b/l atelectasis. Small effusions. Cont lasix for aggressive diuresis. Plan to continue home bronchodilators, Enc OOB, amb, C&DB, PEP. Mechanically assisted ventilation 10/07/2013 10/08/2013 Overview: 10/07/2013 Residual anesthesia still on board. Will WTE once fully awake and appropriate extubation criteria met, including adequate hemostasis. Acute blood loss anemia 10/07/2013 04/30/20 Overview: 10/07/2013 Intraop blood loss with last intraop Hgb of 10.4 Level is adequate for oxygen delivery. Presently minimal need for vasoactive hemodynamic support. Plan Monitor closely for additional bleeding or coagulopathy Fluid resuscitation as needed Consider blood products if acute decompensation or further bleeding, or with Hgb < 7. 10/09/13 - H/H stable, will continue to monitor Cardiac insufficiency following cardiac surgery 10/07/2013 10/09/2013 Overview: 10/07/2013 Immediately postop, needs low dose inotropic support with epinephrine as well as fluid resuscitation to ensure euvolemia (given her LVH and stage 2 diastolic dysfunction). Wean epi as tolerated. Avoid tachycardia 10/08/13 - wean Epi gtt, high fluid balance - begin lasix Stress hyperglycemia 10/07/2013 12/19/2016 Overview: No hx of DM. Will continue SSI to keep glucose < 160 in post-op period. Tapering steroids. Discharge Planning 10/06/2013 01/02/2014 Overview: Discharge today 10.14.2013. Lives in [facility] with . Scheduled appointment with [place] [facility] at 10:30 on 10.[address] Kim at 11:30 on 10.16.2013. H/o Anxiety 10/06/2013 12/19/2016 Overview: Hx of anxiety. Takes ativan BID at home. Mood stable. Plan to continue as an inpatient and increase dose as needed ASA CLASS II 11/25/2002 11/06/2011 Aortic valve disorder 12/19/2016 Overview: Dr. Mckay documented as of this encounter (statuses as of 10/12/2022) [facility] History of Past illness Narrative* Problem Noted Date Resolved Date Pseudopolyp of ascending colon without complicat ion 05/15/2017 08/31/2020 Microscopic hematuria 05/17/2016 08/31/2020 Angiomyolipoma 05/17/2016 08/31/2020 Overview: Unchanged on recent ct scan Hyperdense renal cyst 05/17/2016 12/07/2021 Overview: Unchanged on recent ct scan Acute right-sided low back pain with right-sided sciatica 03/23/2016 12/19/2016 H/o HTN 10/14/2013 07/06/2022 Overview: Currently normotensive. On BB, IV lasix- will change to po at discharge. Pneumoperitoneum 10/10/2013 04/30/2014 Overview: CXR: Pneumoperitoneum noted under right hemidaphragm. D/w CTS and Cards. Pt asymptomatic. No fevers or tachycardia. Denies any abdominal pain. 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 LVH with apparent volume responsiveness (hemodynamics seemed best with CVP approx 15 and PAD approx 20). DVT prophylaxis: Encourage increased activity, SHAWN hose. Pain following surgery or procedure 10/08/2013 10/14/2013 Overview: Pt w/multiple medication allergies. Reports adequate pain control on current regimen. Lidoderm patches discontinued and steroids are being tapered (started prophylactically for adhesive allergy). Will uptitrate regimen as needed. Hyperchloremic metabolic acidosis 10/08/2013 10/09/2013 Overview: 10/08/13 - slightly acidotic with elevated chloride. Anion pina = +14, delta-delta = -7. No hx or s/s of impaired renal function. Will continue to monitor for now, with plan to treat if hyperchloremia/acidosis persists or worsens Atelectasis/FVO/Pleural effusions 10/08/2013 04/30/2014 Overview: On RA. Wt 2.1 kg above pre-op. CXR: b/l atelectasis. Small effusions. Cont lasix for aggressive diuresis. Plan to continue home bronchodilators, Enc OOB, amb, C&DB, PEP. Mechanically assisted ventilation 10/07/2013 10/08/2013 Overview: 10/07/2013 Residual anesthesia still on board. Will WTE once fully awake and appropriate extubation criteria met, including adequate hemostasis. Acute blood loss anemia 10/07/2013 04/30/20 14 Overview: 10/07/2013 Intraop blood loss with last intraop Hgb of 10.4 Level is adequate for oxygen delivery. Presently minimal need for vasoactive hemodynamic support. Plan Monitor closely for additional bleeding or coagulopathy Fluid resuscitation as needed Consider blood products if acute decompensation or further bleeding, or with Hgb < 7. 10/09/13 - H/H stable, will continue to monitor Cardiac insufficiency following cardiac surgery 10/07/2013 10/09/2013 Overview: 10/07/2013 Immediately postop, needs low dose inotropic support with epinephrine as well as fluid resuscitation to ensure euvolemia (given her LVH and stage 2 diastolic dysfunction). Wean epi as tolerated. Avoid tachycardia 10/08/13 - wean Epi gtt, high fluid balance - begin lasix Stress hyperglycemia 10/07/2013 12/19/2016 Overview: No hx of DM. Will continue SSI to keep glucose < 160 in post-op period. Tapering steroids. Discharge Planning 10/06/2013 01/02/2014 Overview: Discharge today 10.14.2013. Lives in [facility] with . Scheduled appointment with [place] [facility] at 10:30 on [address] Kim at 11:30 on 10.16.2013. H/o Anxiety 10/06/2013 12/19/2016 Overview: Hx of anxiety. Takes ativan BID at home. Mood stable. Plan to continue as an inpatient and increase dose as needed ASA CLASS II 11/25/2002 11/06/2011 Aortic valve disorder 12/19/2016 Overview: Dr. Mckay documented as of this encounter (statuses as of 10/12/2022) [facility] of Past illness Narrative* Problem Noted Date Resolved Date Pseudopolyp of ascending colon without complicat ion 05/15/2017 08/31/2020 Microscopic hematuria 05/17/2016 08/31/2020 Angiomyolipoma 05/17/2016 08/31/2020 Overview: Unchanged on recent ct scan Hyperdense renal cyst 05/17/2016 12/07/2021 Overview: Unchanged on recent ct scan Acute right-sided low back pain with right-sided sciatica 03/23/2016 12/19/2016 H/o HTN 10/14/2013 07/06/2022 Overview: Currently normotensive. On BB, IV lasix- will change to po at discharge. Pneumoperitoneum 10/10/2013 04/30/2014 Overview: CXR: Pneumoperitoneum noted under right hemidaphragm. D/w CTS and Cards. Pt asymptomatic. No fevers or tachycardia. Denies any abdominal pain. 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 LVH with apparent volume responsiveness (hemodynamics seemed best with CVP approx 15 and PAD approx 20). DVT prophylaxis: Encourage increased activity, SHAWN hose. Pain following surgery or procedure 10/08/2013 10/14/2013 Overview: Pt w/multiple medication allergies. Reports adequate pain control on current regimen. Lidoderm patches discontinued and steroids are being tapered (started prophylactically for adhesive allergy). Will uptitrate regimen as needed. Hyperchloremic metabolic acidosis 10/08/2013 10/09/2013 Overview: 10/08/13 - slightly acidotic with elevated chloride. Anion pina = +14, delta-delta = -7. No hx or s/s of impaired renal function. Will continue to monitor for now, with plan to treat if hyperchloremia/acidosis persists or worsens Atelectasis/FVO/Pleural effusions 10/08/2013 04/30/2014 Overview: On RA. Wt 2.1 kg above pre-op. CXR: b/l atelectasis. Small effusions. Cont lasix for aggressive diuresis. Plan to continue home bronchodilators, Enc OOB, amb, C&DB, PEP. Mechanically assisted ventilation 10/07/2013 10/08/2013 Overview: 10/07/2013 Residual anesthesia still on board. Will WTE once fully awake and appropriate extubation criteria met, including adequate hemostasis. Acute blood loss anemia 10/07/2013 04/30/20 Overview: 10/07/2013 Intraop blood loss with last intraop Hgb of 10.4 Level is adequate for oxygen delivery. Presently minimal need for vasoactive hemodynamic support. Plan Monitor closely for additional bleeding or coagulopathy Fluid resuscitation as needed Consider blood products if acute decompensation or further bleeding, or with Hgb < 7. 10/09/13 - H/H stable, will continue to monitor Cardiac insufficiency following cardiac surgery 10/07/2013 10/09/2013 Overview: 10/07/2013 Immediately postop, needs low dose inotropic support with epinephrine as well as fluid resuscitation to ensure euvolemia (given her LVH and stage 2 diastolic dysfunction). Wean epi as tolerated. Avoid tachycardia 10/08/13 - wean Epi gtt, high fluid balance - begin lasix Stress hyperglycemia 10/07/2013 12/19/2016 Overview: No hx of DM. Will continue SSI to keep glucose < 160 in post-op period. Tapering steroids. Discharge Planning 10/06/2013 01/02/2014 Overview: Discharge today 10.14.2013. Lives in [facility] with . Scheduled appointment with [place] [facility] at 10:30 on [address] Kim at 11:30 on 10.16.2013. H/o Anxiety 10/06/2013 12/19/2016 Overview: Hx of anxiety. Takes ativan BID at home. Mood stable. Plan to continue as an inpatient and increase dose as needed ASA CLASS II 11/25/2002 11/06/2011 Aortic valve disorder 12/19/2016 Overview: Dr. Mckay documented as of this encounter (statuses as of 10/17/2022) [facility] History of Past illness Narrative* Problem Noted Date Resolved Date Pseudopolyp of ascending colon without complicat ion 05/15/2017 08/31/2020 Microscopic hematuria 05/17/2016 08/31/2020 Angiomyolipoma 05/17/2016 08/31/2020 Overview: Unchanged on recent ct scan Hyperdense renal cyst 05/17/2016 12/07/2021 Overview: Unchanged on recent ct scan Acute right-sided low back pain with right-sided sciatica 03/23/2016 12/19/2016 H/o HTN 10/14/2013 07/06/2022 Overview: Currently normotensive. On BB, IV lasix- will change to po at discharge. Pneumoperitoneum 10/10/2013 04/30/2014 Overview: CXR: Pneumoperitoneum noted under right hemidaphragm. D/w CTS and Cards. Pt asymptomatic. No fevers or tachycardia. Denies any abdominal pain. 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 LVH with apparent volume responsiveness (hemodynamics seemed best with CVP approx 15 and PAD approx 20). DVT prophylaxis: Encourage increased activity, SHAWN hose. Pain following surgery or procedure 10/08/2013 10/14/2013 Overview: Pt w/multiple medication allergies. Reports adequate pain control on current regimen. Lidoderm patches discontinued and steroids are being tapered (started prophylactically for adhesive allergy). Will uptitrate regimen as needed. Hyperchloremic metabolic acidosis 10/08/2013 10/09/2013 Overview: 10/08/13 - slightly acidotic with elevated chloride. Anion pina = +14, delta-delta = -7. No hx or s/s of impaired renal function. Will continue to monitor for now, with plan to treat if hyperchloremia/acidosis persists or worsens Atelectasis/FVO/Pleural effusions 10/08/2013 04/30/2014 Overview: On RA. Wt 2.1 kg above pre-op. CXR: b/l atelectasis. Small effusions. Cont lasix for aggressive diuresis. Plan to continue home bronchodilators, Enc OOB, amb, C&DB, PEP. Mechanically assisted ventilation 10/07/2013 10/08/2013 Overview: 10/07/2013 Residual anesthesia still on board. Will WTE once fully awake and appropriate extubation criteria met, including adequate hemostasis. Acute blood loss anemia 10/07/2013 04/30/20 Overview: 10/07/2013 Intraop blood loss with last intraop Hgb of 10.4 Level is adequate for oxygen delivery. Presently minimal need for vasoactive hemodynamic support. Plan Monitor closely for additional bleeding or coagulopathy Fluid resuscitation as needed Consider blood products if acute decompensation or further bleeding, or with Hgb < 7. 10/09/13 - H/H stable, will continue to monitor Cardiac insufficiency following cardiac surgery 10/07/2013 10/09/2013 Overview: 10/07/2013 Immediately postop, needs low dose inotropic support with epinephrine as well as fluid resuscitation to ensure euvolemia (given her LVH and stage 2 diastolic dysfunction). Wean epi as tolerated. Avoid tachycardia 10/08/13 - wean Epi gtt, high fluid balance - begin lasix Stress hyperglycemia 10/07/2013 12/19/2016 Overview: No hx of DM. Will continue SSI to keep glucose < 160 in post-op period. Tapering steroids. Discharge Planning 10/06/2013 01/02/2014 Overview: Discharge today 10.14.2013. Lives in [facility] with . Scheduled appointment with [place] [facility] at 10:30 on 10.[address] Kim at 11:30 on 10.16.2013. H/o Anxiety 10/06/2013 12/19/2016 Overview: Hx of anxiety. Takes ativan BID at home. Mood stable. Plan to continue as an inpatient and increase dose as needed ASA CLASS II 11/25/2002 11/06/2011 Aortic valve disorder 12/19/2016 Overview: Dr. Mckay documented as of this encounter (statuses as of 10/20/2022) [facility] History of Past illness Narrative* Problem Noted Date Resolved Date Pseudopolyp of ascending colon without complicat ion 05/15/2017 08/31/2020 Microscopic hematuria 05/17/2016 08/31/2020 Angiomyolipoma 05/17/2016 08/31/2020 Overview: Unchanged on recent ct scan Hyperdense renal cyst 05/17/2016 12/07/2021 Overview: Unchanged on recent ct scan Acute right-sided low back pain with right-sided sciatica 03/23/2016 12/19/2016 H/o HTN 10/14/2013 07/06/2022 Overview: Currently normotensive. On BB, IV lasix- will change to po at discharge. Pneumoperitoneum 10/10/2013 04/30/2014 Overview: CXR: Pneumoperitoneum noted under right hemidaphragm. D/w CTS and Cards. Pt asymptomatic. No fevers or tachycardia. Denies any abdominal pain. 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 LVH with apparent volume responsiveness (hemodynamics seemed best with CVP approx 15 and PAD approx 20). DVT prophylaxis: Encourage increased activity, SHAWN hose. Pain following surgery or procedure 10/08/2013 10/14/2013 Overview: Pt w/multiple medication allergies. Reports adequate pain control on current regimen. Lidoderm patches discontinued and steroids are being tapered (started prophylactically for adhesive allergy). Will uptitrate regimen as needed. Hyperchloremic metabolic acidosis 10/08/2013 10/09/2013 Overview: 10/08/13 - slightly acidotic with elevated chloride. Anion pina = +14, delta-delta = -7. No hx or s/s of impaired renal function. Will continue to monitor for now, with plan to treat if hyperchloremia/acidosis persists or worsens Atelectasis/FVO/Pleural effusions 10/08/2013 04/30/2014 Overview: On RA. Wt 2.1 kg above pre-op. CXR: b/l atelectasis. Small effusions. Cont lasix for aggressive diuresis. Plan to continue home bronchodilators, Enc OOB, amb, C&DB, PEP. Mechanically assisted ventilation 10/07/2013 10/08/2013 Overview: 10/07/2013 Residual anesthesia still on board. Will WTE once fully awake and appropriate extubation criteria met, including adequate hemostasis. Acute blood loss anemia 10/07/2013 04/30/20 14 Overview: 10/07/2013 Intraop blood loss with last intraop Hgb of 10.4 Level is adequate for oxygen delivery. Presently minimal need for vasoactive hemodynamic support. Plan Monitor closely for additional bleeding or coagulopathy Fluid resuscitation as needed Consider blood products if acute decompensation or further bleeding, or with Hgb < 7. 10/09/13 - H/H stable, will continue to monitor Cardiac insufficiency following cardiac surgery 10/07/2013 10/09/2013 Overview: 10/07/2013 Immediately postop, needs low dose inotropic support with epinephrine as well as fluid resuscitation to ensure euvolemia (given her LVH and stage 2 diastolic dysfunction). Wean epi as tolerated. Avoid tachycardia 10/08/13 - wean Epi gtt, high fluid balance - begin lasix Stress hyperglycemia 10/07/2013 12/19/2016 Overview: No hx of DM. Will continue SSI to keep glucose < 160 in post-op period. Tapering steroids. Discharge Planning 10/06/2013 01/02/2014 Overview: Discharge today 10.14.2013. Lives in [facility] with . Scheduled appointment with [place] [facility] at 10:30 on [address] Kim at 11:30 on 10.16.2013. H/o Anxiety 10/06/2013 12/19/2016 Overview: Hx of anxiety. Takes ativan BID at home. Mood stable. Plan to continue as an inpatient and increase dose as needed ASA CLASS II 11/25/2002 11/06/2011 Aortic valve disorder 12/19/2016 Overview: Dr. Mckay documented as of this encounter (statuses as of 10/24/2022) [facility] History of Past illness Narrative* Problem Noted Date Resolved Date Pseudopolyp of ascending colon without complicat ion 05/15/2017 08/31/2020 Microscopic hematuria 05/17/2016 08/31/2020 Angiomyolipoma 05/17/2016 08/31/2020 Overview: Unchanged on recent ct scan Hyperdense renal cyst 05/17/2016 12/07/2021 Overview: Unchanged on recent ct scan Acute right-sided low back pain with right-sided sciatica 03/23/2016 12/19/2016 H/o HTN 10/14/2013 07/06/2022 Overview: Currently normotensive. On BB, IV lasix- will change to po at discharge. Pneumoperitoneum 10/10/2013 04/30/2014 Overview: CXR: Pneumoperitoneum noted under right hemidaphragm. D/w CTS and Cards. Pt asymptomatic. No fevers or tachycardia. Denies any abdominal pain. 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 LVH with apparent volume responsiveness (hemodynamics seemed best with CVP approx 15 and PAD approx 20). DVT prophylaxis: Encourage increased activity, SHAWN hose. Pain following surgery or procedure 10/08/2013 10/14/2013 Overview: Pt w/multiple medication allergies. Reports adequate pain control on current regimen. Lidoderm patches discontinued and steroids are being tapered (started prophylactically for adhesive allergy). Will uptitrate regimen as needed. Hyperchloremic metabolic acidosis 10/08/2013 10/09/2013 Overview: 10/08/13 - slightly acidotic with elevated chloride. Anion pina = +14, delta-delta = -7. No hx or s/s of impaired renal function. Will continue to monitor for now, with plan to treat if hyperchloremia/acidosis persists or worsens Atelectasis/FVO/Pleural effusions 10/08/2013 04/30/2014 Overview: On RA. Wt 2.1 kg above pre-op. CXR: b/l atelectasis. Small effusions. Cont lasix for aggressive diuresis. Plan to continue home bronchodilators, Enc OOB, amb, C&DB, PEP. Mechanically assisted ventilation 10/07/2013 10/08/2013 Overview: 10/07/2013 Residual anesthesia still on board. Will WTE once fully awake and appropriate extubation criteria met, including adequate hemostasis. Acute blood loss anemia 10/07/2013 04/30/20 14 Overview: 10/07/2013 Intraop blood loss with last intraop Hgb of 10.4 Level is adequate for oxygen delivery. Presently minimal need for vasoactive hemodynamic support. Plan Monitor closely for additional bleeding or coagulopathy Fluid resuscitation as needed Consider blood products if acute decompensation or further bleeding, or with Hgb < 7. 10/09/13 - H/H stable, will continue to monitor Cardiac insufficiency following cardiac surgery 10/07/2013 10/09/2013 Overview: 10/07/2013 Immediately postop, needs low dose inotropic support with epinephrine as well as fluid resuscitation to ensure euvolemia (given her LVH and stage 2 diastolic dysfunction). Wean epi as tolerated. Avoid tachycardia 10/08/13 - wean Epi gtt, high fluid balance - begin lasix Stress hyperglycemia 10/07/2013 12/19/2016 Overview: No hx of DM. Will continue SSI to keep glucose < 160 in post-op period. Tapering steroids. Discharge Planning 10/06/2013 01/02/2014 Overview: Discharge today 10.14.2013. Lives in [facility] with . Scheduled appointment with [place] [facility] at 10:30 on 10.[address] Kim at 11:30 on 10.16.2013. H/o Anxiety 10/06/2013 12/19/2016 Overview: Hx of anxiety. Takes ativan BID at home. Mood stable. Plan to continue as an inpatient and increase dose as needed ASA CLASS II 11/25/2002 11/06/2011 Aortic valve disorder 12/19/2016 Overview: Dr. Mckay documented as of this encounter (statuses as of 10/25/2022) [facility] History of Past illness Narrative* Problem Noted Date Resolved Date Pseudopolyp of ascending colon without complicat ion 05/15/2017 08/31/2020 Microscopic hematuria 05/17/2016 08/31/2020 Angiomyolipoma 05/17/2016 08/31/2020 Overview: Unchanged on recent ct scan Hyperdense renal cyst 05/17/2016 12/07/2021 Overview: Unchanged on recent ct scan Acute right-sided low back pain with right-sided sciatica 03/23/2016 12/19/2016 H/o HTN 10/14/2013 07/06/2022 Overview: Currently normotensive. On BB, IV lasix- will change to po at discharge. Pneumoperitoneum 10/10/2013 04/30/2014 Overview: CXR: Pneumoperitoneum noted under right hemidaphragm. D/w CTS and Cards. Pt asymptomatic. No fevers or tachycardia. Denies any abdominal pain. 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 LVH with apparent volume responsiveness (hemodynamics seemed best with CVP approx 15 and PAD approx 20). DVT prophylaxis: Encourage increased activity, SHAWN hose. Pain following surgery or procedure 10/08/2013 10/14/2013 Overview: Pt w/multiple medication allergies. Reports adequate pain control on current regimen. Lidoderm patches discontinued and steroids are being tapered (started prophylactically for adhesive allergy). Will uptitrate regimen as needed. Hyperchloremic metabolic acidosis 10/08/2013 10/09/2013 Overview: 10/08/13 - slightly acidotic with elevated chloride. Anion pina = +14, delta-delta = -7. No hx or s/s of impaired renal function. Will continue to monitor for now, with plan to treat if hyperchloremia/acidosis persists or worsens Atelectasis/FVO/Pleural effusions 10/08/2013 04/30/2014 Overview: On RA. Wt 2.1 kg above pre-op. CXR: b/l atelectasis. Small effusions. Cont lasix for aggressive diuresis. Plan to continue home bronchodilators, Enc OOB, amb, C&DB, PEP. Mechanically assisted ventilation 10/07/2013 10/08/2013 Overview: 10/07/2013 Residual anesthesia still on board. Will WTE once fully awake and appropriate extubation criteria met, including adequate hemostasis. Acute blood loss anemia 10/07/2013 04/30/20 Overview: 10/07/2013 Intraop blood loss with last intraop Hgb of 10.4 Level is adequate for oxygen delivery. Presently minimal need for vasoactive hemodynamic support. Plan Monitor closely for additional bleeding or coagulopathy Fluid resuscitation as needed Consider blood products if acute decompensation or further bleeding, or with Hgb < 7. 10/09/13 - H/H stable, will continue to monitor Cardiac insufficiency following cardiac surgery 10/07/2013 10/09/2013 Overview: 10/07/2013 Immediately postop, needs low dose inotropic support with epinephrine as well as fluid resuscitation to ensure euvolemia (given her LVH and stage 2 diastolic dysfunction). Wean epi as tolerated. Avoid tachycardia 10/08/13 - wean Epi gtt, high fluid balance - begin lasix Stress hyperglycemia 10/07/2013 12/19/2016 Overview: No hx of DM. Will continue SSI to keep glucose < 160 in post-op period. Tapering steroids. Discharge Planning 10/06/2013 01/02/2014 Overview: Discharge today 10.14.2013. Lives in [facility] with . Scheduled appointment with [place] [facility] at 10:30 on [address] Kim at 11:30 on 10.16.2013. H/o Anxiety 10/06/2013 12/19/2016 Overview: Hx of anxiety. Takes ativan BID at home. Mood stable. Plan to continue as an inpatient and increase dose as needed ASA CLASS II 11/25/2002 11/06/2011 Aortic valve disorder 12/19/2016 Overview: Dr. Mckay documented as of this encounter (statuses as of 10/26/2022) [facility] History of Past illness Narrative* Problem Noted Date Resolved Date Pseudopolyp of ascending colon without complicat ion 05/15/2017 08/31/2020 Microscopic hematuria 05/17/2016 08/31/2020 Angiomyolipoma 05/17/2016 08/31/2020 Overview: Unchanged on recent ct scan Hyperdense renal cyst 05/17/2016 12/07/2021 Overview: Unchanged on recent ct scan Acute right-sided low back pain with right-sided sciatica 03/23/2016 12/19/2016 H/o HTN 10/14/2013 07/06/2022 Overview: Currently normotensive. On BB, IV lasix- will change to po at discharge. Pneumoperitoneum 10/10/2013 04/30/2014 Overview: CXR: Pneumoperitoneum noted under right hemidaphragm. D/w CTS and Cards. Pt asymptomatic. No fevers or tachycardia. Denies any abdominal pain. 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 LVH with apparent volume responsiveness (hemodynamics seemed best with CVP approx 15 and PAD approx 20). DVT prophylaxis: Encourage increased activity, SHAWN hose. Pain following surgery or procedure 10/08/2013 10/14/2013 Overview: Pt w/multiple medication allergies. Reports adequate pain control on current regimen. Lidoderm patches discontinued and steroids are being tapered (started prophylactically for adhesive allergy). Will uptitrate regimen as needed. Hyperchloremic metabolic acidosis 10/08/2013 10/09/2013 Overview: 10/08/13 - slightly acidotic with elevated chloride. Anion pina = +14, delta-delta = -7. No hx or s/s of impaired renal function. Will continue to monitor for now, with plan to treat if hyperchloremia/acidosis persists or worsens Atelectasis/FVO/Pleural effusions 10/08/2013 04/30/2014 Overview: On RA. Wt 2.1 kg above pre-op. CXR: b/l atelectasis. Small effusions. Cont lasix for aggressive diuresis. Plan to continue home bronchodilators, Enc OOB, amb, C&DB, PEP. Mechanically assisted ventilation 10/07/2013 10/08/2013 Overview: 10/07/2013 Residual anesthesia still on board. Will WTE once fully awake and appropriate extubation criteria met, including adequate hemostasis. Acute blood loss anemia 10/07/2013 04/30/20 Overview: 10/07/2013 Intraop blood loss with last intraop Hgb of 10.4 Level is adequate for oxygen delivery. Presently minimal need for vasoactive hemodynamic support. Plan Monitor closely for additional bleeding or coagulopathy Fluid resuscitation as needed Consider blood products if acute decompensation or further bleeding, or with Hgb < 7. 10/09/13 - H/H stable, will continue to monitor Cardiac insufficiency following cardiac surgery 10/07/2013 10/09/2013 Overview: 10/07/2013 Immediately postop, needs low dose inotropic support with epinephrine as well as fluid resuscitation to ensure euvolemia (given her LVH and stage 2 diastolic dysfunction). Wean epi as tolerated. Avoid tachycardia 10/08/13 - wean Epi gtt, high fluid balance - begin lasix Stress hyperglycemia 10/07/2013 12/19/2016 Overview: No hx of DM. Will continue SSI to keep glucose < 160 in post-op period. Tapering steroids. Discharge Planning 10/06/2013 01/02/2014 Overview: Discharge today 10.14.2013. Lives in [facility] with . Scheduled appointment with [place] [facility] at 10:30 on [address] Kim at 11:30 on 10.16.2013. H/o Anxiety 10/06/2013 12/19/2016 Overview: Hx of anxiety. Takes ativan BID at home. Mood stable. Plan to continue as an inpatient and increase dose as needed ASA CLASS II 11/25/2002 11/06/2011 Aortic valve disorder 12/19/2016 Overview: Dr. Mckay documented as of this encounter (statuses as of 10/27/2022) [facility] History of Past illness Narrative* Problem Noted Date Resolved Date Pseudopolyp of ascending colon without complicat ion 05/15/2017 08/31/2020 Microscopic hematuria 05/17/2016 08/31/2020 Angiomyolipoma 05/17/2016 08/31/2020 Overview: Unchanged on recent ct scan Hyperdense renal cyst 05/17/2016 12/07/2021 Overview: Unchanged on recent ct scan Acute right-sided low back pain with right-sided sciatica 03/23/2016 12/19/2016 H/o HTN 10/14/2013 07/06/2022 Overview: Currently normotensive. On BB, IV lasix- will change to po at discharge. Pneumoperitoneum 10/10/2013 04/30/2014 Overview: CXR: Pneumoperitoneum noted under right hemidaphragm. D/w CTS and Cards. Pt asymptomatic. No fevers or tachycardia. Denies any abdominal pain. 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 LVH with apparent volume responsiveness (hemodynamics seemed best with CVP approx 15 and PAD approx 20). DVT prophylaxis: Encourage increased activity, SHAWN hose. Pain following surgery or procedure 10/08/2013 10/14/2013 Overview: Pt w/multiple medication allergies. Reports adequate pain control on current regimen. Lidoderm patches discontinued and steroids are being tapered (started prophylactically for adhesive allergy). Will uptitrate regimen as needed. Hyperchloremic metabolic acidosis 10/08/2013 10/09/2013 Overview: 10/08/13 - slightly acidotic with elevated chloride. Anion pina = +14, delta-delta = -7. No hx or s/s of impaired renal function. Will continue to monitor for now, with plan to treat if hyperchloremia/acidosis persists or worsens Atelectasis/FVO/Pleural effusions 10/08/2013 04/30/2014 Overview: On RA. Wt 2.1 kg above pre-op. CXR: b/l atelectasis. Small effusions. Cont lasix for aggressive diuresis. Plan to continue home bronchodilators, Enc OOB, amb, C&DB, PEP. Mechanically assisted ventilation 10/07/2013 10/08/2013 Overview: 10/07/2013 Residual anesthesia still on board. Will WTE once fully awake and appropriate extubation criteria met, including adequate hemostasis. Acute blood loss anemia 10/07/2013 04/30/20 Overview: 10/07/2013 Intraop blood loss with last intraop Hgb of 10.4 Level is adequate for oxygen delivery. Presently minimal need for vasoactive hemodynamic support. Plan Monitor closely for additional bleeding or coagulopathy Fluid resuscitation as needed Consider blood products if acute decompensation or further bleeding, or with Hgb < 7. 10/09/13 - H/H stable, will continue to monitor Cardiac insufficiency following cardiac surgery 10/07/2013 10/09/2013 Overview: 10/07/2013 Immediately postop, needs low dose inotropic support with epinephrine as well as fluid resuscitation to ensure euvolemia (given her LVH and stage 2 diastolic dysfunction). Wean epi as tolerated. Avoid tachycardia 10/08/13 - wean Epi gtt, high fluid balance - begin lasix Stress hyperglycemia 10/07/2013 12/19/2016 Overview: No hx of DM. Will continue SSI to keep glucose < 160 in post-op period. Tapering steroids. Discharge Planning 10/06/2013 01/02/2014 Overview: Discharge today 10.14.2013. Lives in [facility] with . Scheduled appointment with [place] [facility] at 10:30 on [address] Kim at 11:30 on 10.16.2013. H/o Anxiety 10/06/2013 12/19/2016 Overview: Hx of anxiety. Takes ativan BID at home. Mood stable. Plan to continue as an inpatient and increase dose as needed ASA CLASS II 11/25/2002 11/06/2011 Aortic valve disorder 12/19/2016 Overview: Dr. Mckay documented as of this encounter (statuses as of 10/30/2022) [facility] of Past illness Narrative* Problem Noted Date Resolved Date Pseudopolyp of ascending colon without complicat ion 05/15/2017 08/31/2020 Microscopic hematuria 05/17/2016 08/31/2020 Angiomyolipoma 05/17/2016 08/31/2020 Overview: Unchanged on recent ct scan Hyperdense renal cyst 05/17/2016 12/07/2021 Overview: Unchanged on recent ct scan Acute right-sided low back pain with right-sided sciatica 03/23/2016 12/19/2016 H/o HTN 10/14/2013 07/06/2022 Overview: Currently normotensive. On BB, IV lasix- will change to po at discharge. Pneumoperitoneum 10/10/2013 04/30/2014 Overview: CXR: Pneumoperitoneum noted under right hemidaphragm. D/w CTS and Cards. Pt asymptomatic. No fevers or tachycardia. Denies any abdominal pain. 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 LVH with apparent volume responsiveness (hemodynamics seemed best with CVP approx 15 and PAD approx 20). DVT prophylaxis: Encourage increased activity, SHAWN hose. Pain following surgery or procedure 10/08/2013 10/14/2013 Overview: Pt w/multiple medication allergies. Reports adequate pain control on current regimen. Lidoderm patches discontinued and steroids are being tapered (started prophylactically for adhesive allergy). Will uptitrate regimen as needed. Hyperchloremic metabolic acidosis 10/08/2013 10/09/2013 Overview: 10/08/13 - slightly acidotic with elevated chloride. Anion pina = +14, delta-delta = -7. No hx or s/s of impaired renal function. Will continue to monitor for now, with plan to treat if hyperchloremia/acidosis persists or worsens Atelectasis/FVO/Pleural effusions 10/08/2013 04/30/2014 Overview: On RA. Wt 2.1 kg above pre-op. CXR: b/l atelectasis. Small effusions. Cont lasix for aggressive diuresis. Plan to continue home bronchodilators, Enc OOB, amb, C&DB, PEP. Mechanically assisted ventilation 10/07/2013 10/08/2013 Overview: 10/07/2013 Residual anesthesia still on board. Will WTE once fully awake and appropriate extubation criteria met, including adequate hemostasis. Acute blood loss anemia 10/07/2013 04/30/20 Overview: 10/07/2013 Intraop blood loss with last intraop Hgb of 10.4 Level is adequate for oxygen delivery. Presently minimal need for vasoactive hemodynamic support. Plan Monitor closely for additional bleeding or coagulopathy Fluid resuscitation as needed Consider blood products if acute decompensation or further bleeding, or with Hgb < 7. 10/09/13 - H/H stable, will continue to monitor Cardiac insufficiency following cardiac surgery 10/07/2013 10/09/2013 Overview: 10/07/2013 Immediately postop, needs low dose inotropic support with epinephrine as well as fluid resuscitation to ensure euvolemia (given her LVH and stage 2 diastolic dysfunction). Wean epi as tolerated. Avoid tachycardia 10/08/13 - wean Epi gtt, high fluid balance - begin lasix Stress hyperglycemia 10/07/2013 12/19/2016 Overview: No hx of DM. Will continue SSI to keep glucose < 160 in post-op period. Tapering steroids. Discharge Planning 10/06/2013 01/02/2014 Overview: Discharge today 10.14.2013. Lives in [facility] with . Scheduled appointment with [place] [facility] at 10:30 on 10.[address] Kim at 11:30 on 10.16.2013. H/o Anxiety 10/06/2013 12/19/2016 Overview: Hx of anxiety. Takes ativan BID at home. Mood stable. Plan to continue as an inpatient and increase dose as needed ASA CLASS II 11/25/2002 11/06/2011 Aortic valve disorder 12/19/2016 Overview: Dr. Mckay documented as of this encounter (statuses as of 11/01/2022) [facility] History of Past illness Narrative* Problem Noted Date Resolved Date Pseudopolyp of ascending colon without complicat ion 05/15/2017 08/31/2020 Microscopic hematuria 05/17/2016 08/31/2020 Angiomyolipoma 05/17/2016 08/31/2020 Overview: Unchanged on recent ct scan Hyperdense renal cyst 05/17/2016 12/07/2021 Overview: Unchanged on recent ct scan Acute right-sided low back pain with right-sided sciatica 03/23/2016 12/19/2016 H/o HTN 10/14/2013 07/06/2022 Overview: Currently normotensive. On BB, IV lasix- will change to po at discharge. Pneumoperitoneum 10/10/2013 04/30/2014 Overview: CXR: Pneumoperitoneum noted under right hemidaphragm. D/w CTS and Cards. Pt asymptomatic. No fevers or tachycardia. Denies any abdominal pain. 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 LVH with apparent volume responsiveness (hemodynamics seemed best with CVP approx 15 and PAD approx 20). DVT prophylaxis: Encourage increased activity, SHAWN hose. Pain following surgery or procedure 10/08/2013 10/14/2013 Overview: Pt w/multiple medication allergies. Reports adequate pain control on current regimen. Lidoderm patches discontinued and steroids are being tapered (started prophylactically for adhesive allergy). Will uptitrate regimen as needed. Hyperchloremic metabolic acidosis 10/08/2013 10/09/2013 Overview: 10/08/13 - slightly acidotic with elevated chloride. Anion pina = +14, delta-delta = -7. No hx or s/s of impaired renal function. Will continue to monitor for now, with plan to treat if hyperchloremia/acidosis persists or worsens Atelectasis/FVO/Pleural effusions 10/08/2013 04/30/2014 Overview: On RA. Wt 2.1 kg above pre-op. CXR: b/l atelectasis. Small effusions. Cont lasix for aggressive diuresis. Plan to continue home bronchodilators, Enc OOB, amb, C&DB, PEP. Mechanically assisted ventilation 10/07/2013 10/08/2013 Overview: 10/07/2013 Residual anesthesia still on board. Will WTE once fully awake and appropriate extubation criteria met, including adequate hemostasis. Acute blood loss anemia 10/07/2013 04/30/20 Overview: 10/07/2013 Intraop blood loss with last intraop Hgb of 10.4 Level is adequate for oxygen delivery. Presently minimal need for vasoactive hemodynamic support. Plan Monitor closely for additional bleeding or coagulopathy Fluid resuscitation as needed Consider blood products if acute decompensation or further bleeding, or with Hgb < 7. 10/09/13 - H/H stable, will continue to monitor Cardiac insufficiency following cardiac surgery 10/07/2013 10/09/2013 Overview: 10/07/2013 Immediately postop, needs low dose inotropic support with epinephrine as well as fluid resuscitation to ensure euvolemia (given her LVH and stage 2 diastolic dysfunction). Wean epi as tolerated. Avoid tachycardia 10/08/13 - wean Epi gtt, high fluid balance - begin lasix Stress hyperglycemia 10/07/2013 12/19/2016 Overview: No hx of DM. Will continue SSI to keep glucose < 160 in post-op period. Tapering steroids. Discharge Planning 10/06/2013 01/02/2014 Overview: Discharge today 10.14.2013. Lives in [facility] with . Scheduled appointment with [place] [facility] at 10:30 on 10.[address] Kim at 11:30 on 10.16.2013. H/o Anxiety 10/06/2013 12/19/2016 Overview: Hx of anxiety. Takes ativan BID at home. Mood stable. Plan to continue as an inpatient and increase dose as needed ASA CLASS II 11/25/2002 11/06/2011 Aortic valve disorder 12/19/2016 Overview: Dr. Mckay documented as of this encounter (statuses as of 11/06/2022) [facility] History of Past illness Narrative* Problem Noted Date Resolved Date Pseudopolyp of ascending colon without complicat ion 05/15/2017 08/31/2020 Microscopic hematuria 05/17/2016 08/31/2020 Angiomyolipoma 05/17/2016 08/31/2020 Overview: Unchanged on recent ct scan Hyperdense renal cyst 05/17/2016 12/07/2021 Overview: Unchanged on recent ct scan Acute right-sided low back pain with right-sided sciatica 03/23/2016 12/19/2016 H/o HTN 10/14/2013 07/06/2022 Overview: Currently normotensive. On BB, IV lasix- will change to po at discharge. Pneumoperitoneum 10/10/2013 04/30/2014 Overview: CXR: Pneumoperitoneum noted under right hemidaphragm. D/w CTS and Cards. Pt asymptomatic. No fevers or tachycardia. Denies any abdominal pain. 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 LVH with apparent volume responsiveness (hemodynamics seemed best with CVP approx 15 and PAD approx 20). DVT prophylaxis: Encourage increased activity, SHAWN hose. Pain following surgery or procedure 10/08/2013 10/14/2013 Overview: Pt w/multiple medication allergies. Reports adequate pain control on current regimen. Lidoderm patches discontinued and steroids are being tapered (started prophylactically for adhesive allergy). Will uptitrate regimen as needed. Hyperchloremic metabolic acidosis 10/08/2013 10/09/2013 Overview: 10/08/13 - slightly acidotic with elevated chloride. Anion pina = +14, delta-delta = -7. No hx or s/s of impaired renal function. Will continue to monitor for now, with plan to treat if hyperchloremia/acidosis persists or worsens Atelectasis/FVO/Pleural effusions 10/08/2013 04/30/2014 Overview: On RA. Wt 2.1 kg above pre-op. CXR: b/l atelectasis. Small effusions. Cont lasix for aggressive diuresis. Plan to continue home bronchodilators, Enc OOB, amb, C&DB, PEP. Mechanically assisted ventilation 10/07/2013 10/08/2013 Overview: 10/07/2013 Residual anesthesia still on board. Will WTE once fully awake and appropriate extubation criteria met, including adequate hemostasis. Acute blood loss anemia 10/07/2013 04/30/20 Overview: 10/07/2013 Intraop blood loss with last intraop Hgb of 10.4 Level is adequate for oxygen delivery. Presently minimal need for vasoactive hemodynamic support. Plan Monitor closely for additional bleeding or coagulopathy Fluid resuscitation as needed Consider blood products if acute decompensation or further bleeding, or with Hgb < 7. 10/09/13 - H/H stable, will continue to monitor Cardiac insufficiency following cardiac surgery 10/07/2013 10/09/2013 Overview: 10/07/2013 Immediately postop, needs low dose inotropic support with epinephrine as well as fluid resuscitation to ensure euvolemia (given her LVH and stage 2 diastolic dysfunction). Wean epi as tolerated. Avoid tachycardia 10/08/13 - wean Epi gtt, high fluid balance - begin lasix Stress hyperglycemia 10/07/2013 12/19/2016 Overview: No hx of DM. Will continue SSI to keep glucose < 160 in post-op period. Tapering steroids. Discharge Planning 10/06/2013 01/02/2014 Overview: Discharge today 10.14.2013. Lives in [facility] with . Scheduled appointment with [place] [facility] at 10:30 on 10.[address] Kim at 11:30 on 10.16.2013. H/o Anxiety 10/06/2013 12/19/2016 Overview: Hx of anxiety. Takes ativan BID at home. Mood stable. Plan to continue as an inpatient and increase dose as needed ASA CLASS II 11/25/2002 11/06/2011 Aortic valve disorder 12/19/2016 Overview: Dr. Mckay documented as of this encounter (statuses as of 11/06/2022) [facility] History of Past illness Narrative* Problem Noted Date Resolved Date Pseudopolyp of ascending colon without complicat ion 05/15/2017 08/31/2020 Microscopic hematuria 05/17/2016 08/31/2020 Angiomyolipoma 05/17/2016 08/31/2020 Overview: Unchanged on recent ct scan Hyperdense renal cyst 05/17/2016 12/07/2021 Overview: Unchanged on recent ct scan Acute right-sided low back pain with right-sided sciatica 03/23/2016 12/19/2016 H/o HTN 10/14/2013 07/06/2022 Overview: Currently normotensive. On BB, IV lasix- will change to po at discharge. Pneumoperitoneum 10/10/2013 04/30/2014 Overview: CXR: Pneumoperitoneum noted under right hemidaphragm. D/w CTS and Cards. Pt asymptomatic. No fevers or tachycardia. Denies any abdominal pain. 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 LVH with apparent volume responsiveness (hemodynamics seemed best with CVP approx 15 and PAD approx 20). DVT prophylaxis: Encourage increased activity, SHAWN hose. Pain following surgery or procedure 10/08/2013 10/14/2013 Overview: Pt w/multiple medication allergies. Reports adequate pain control on current regimen. Lidoderm patches discontinued and steroids are being tapered (started prophylactically for adhesive allergy). Will uptitrate regimen as needed. Hyperchloremic metabolic acidosis 10/08/2013 10/09/2013 Overview: 10/08/13 - slightly acidotic with elevated chloride. Anion pina = +14, delta-delta = -7. No hx or s/s of impaired renal function. Will continue to monitor for now, with plan to treat if hyperchloremia/acidosis persists or worsens Atelectasis/FVO/Pleural effusions 10/08/2013 04/30/2014 Overview: On RA. Wt 2.1 kg above pre-op. CXR: b/l atelectasis. Small effusions. Cont lasix for aggressive diuresis. Plan to continue home bronchodilators, Enc OOB, amb, C&DB, PEP. Mechanically assisted ventilation 10/07/2013 10/08/2013 Overview: 10/07/2013 Residual anesthesia still on board. Will WTE once fully awake and appropriate extubation criteria met, including adequate hemostasis. Acute blood loss anemia 10/07/2013 04/30/20 14 Overview: 10/07/2013 Intraop blood loss with last intraop Hgb of 10.4 Level is adequate for oxygen delivery. Presently minimal need for vasoactive hemodynamic support. Plan Monitor closely for additional bleeding or coagulopathy Fluid resuscitation as needed Consider blood products if acute decompensation or further bleeding, or with Hgb < 7. 10/09/13 - H/H stable, will continue to monitor Cardiac insufficiency following cardiac surgery 10/07/2013 10/09/2013 Overview: 10/07/2013 Immediately postop, needs low dose inotropic support with epinephrine as well as fluid resuscitation to ensure euvolemia (given her LVH and stage 2 diastolic dysfunction). Wean epi as tolerated. Avoid tachycardia 10/08/13 - wean Epi gtt, high fluid balance - begin lasix Stress hyperglycemia 10/07/2013 12/19/2016 Overview: No hx of DM. Will continue SSI to keep glucose < 160 in post-op period. Tapering steroids. Discharge Planning 10/06/2013 01/02/2014 Overview: Discharge today 10.14.2013. Lives in [facility] with . Scheduled appointment with [place] [facility] at 10:30 on 10.[address] Kim at 11:30 on 10.16.2013. H/o Anxiety 10/06/2013 12/19/2016 Overview: Hx of anxiety. Takes ativan BID at home. Mood stable. Plan to continue as an inpatient and increase dose as needed ASA CLASS II 11/25/2002 11/06/2011 Aortic valve disorder 12/19/2016 Overview: Dr. Mckay documented as of this encounter (statuses as of 11/07/2022) [facility] History of Past illness Narrative* Problem Noted Date Resolved Date Pseudopolyp of ascending colon without complicat ion 05/15/2017 08/31/2020 Microscopic hematuria 05/17/2016 08/31/2020 Angiomyolipoma 05/17/2016 08/31/2020 Overview: Unchanged on recent ct scan Hyperdense renal cyst 05/17/2016 12/07/2021 Overview: Unchanged on recent ct scan Acute right-sided low back pain with right-sided sciatica 03/23/2016 12/19/2016 H/o HTN 10/14/2013 07/06/2022 Overview: Currently normotensive. On BB, IV lasix- will change to po at discharge. Pneumoperitoneum 10/10/2013 04/30/2014 Overview: CXR: Pneumoperitoneum noted under right hemidaphragm. D/w CTS and Cards. Pt asymptomatic. No fevers or tachycardia. Denies any abdominal pain. 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 LVH with apparent volume responsiveness (hemodynamics seemed best with CVP approx 15 and PAD approx 20). DVT prophylaxis: Encourage increased activity, SHAWN hose. Pain following surgery or procedure 10/08/2013 10/14/2013 Overview: Pt w/multiple medication allergies. Reports adequate pain control on current regimen. Lidoderm patches discontinued and steroids are being tapered (started prophylactically for adhesive allergy). Will uptitrate regimen as needed. Hyperchloremic metabolic acidosis 10/08/2013 10/09/2013 Overview: 10/08/13 - slightly acidotic with elevated chloride. Anion pina = +14, delta-delta = -7. No hx or s/s of impaired renal function. Will continue to monitor for now, with plan to treat if hyperchloremia/acidosis persists or worsens Atelectasis/FVO/Pleural effusions 10/08/2013 04/30/2014 Overview: On RA. Wt 2.1 kg above pre-op. CXR: b/l atelectasis. Small effusions. Cont lasix for aggressive diuresis. Plan to continue home bronchodilators, Enc OOB, amb, C&DB, PEP. Mechanically assisted ventilation 10/07/2013 10/08/2013 Overview: 10/07/2013 Residual anesthesia still on board. Will WTE once fully awake and appropriate extubation criteria met, including adequate hemostasis. Acute blood loss anemia 10/07/2013 04/30/20 Overview: 10/07/2013 Intraop blood loss with last intraop Hgb of 10.4 Level is adequate for oxygen delivery. Presently minimal need for vasoactive hemodynamic support. Plan Monitor closely for additional bleeding or coagulopathy Fluid resuscitation as needed Consider blood products if acute decompensation or further bleeding, or with Hgb < 7. 10/09/13 - H/H stable, will continue to monitor Cardiac insufficiency following cardiac surgery 10/07/2013 10/09/2013 Overview: 10/07/2013 Immediately postop, needs low dose inotropic support with epinephrine as well as fluid resuscitation to ensure euvolemia (given her LVH and stage 2 diastolic dysfunction). Wean epi as tolerated. Avoid tachycardia 10/08/13 - wean Epi gtt, high fluid balance - begin lasix Stress hyperglycemia 10/07/2013 12/19/2016 Overview: No hx of DM. Will continue SSI to keep glucose < 160 in post-op period. Tapering steroids. Discharge Planning 10/06/2013 01/02/2014 Overview: Discharge today 10.14.2013. Lives in [facility] with . Scheduled appointment with [place] [facility] at 10:30 on 10.[address] Kim at 11:30 on 10.16.2013. H/o Anxiety 10/06/2013 12/19/2016 Overview: Hx of anxiety. Takes ativan BID at home. Mood stable. Plan to continue as an inpatient and increase dose as needed ASA CLASS II 11/25/2002 11/06/2011 Aortic valve disorder 12/19/2016 Overview: Dr. Mckay documented as of this encounter (statuses as of 11/08/2022) [facility] History of Past illness Narrative* Problem Noted Date Resolved Date Pseudopolyp of ascending colon without complicat ion 05/15/2017 08/31/2020 Microscopic hematuria 05/17/2016 08/31/2020 Angiomyolipoma 05/17/2016 08/31/2020 Overview: Unchanged on recent ct scan Hyperdense renal cyst 05/17/2016 12/07/2021 Overview: Unchanged on recent ct scan Acute right-sided low back pain with right-sided sciatica 03/23/2016 12/19/2016 H/o HTN 10/14/2013 07/06/2022 Overview: Currently normotensive. On BB, IV lasix- will change to po at discharge. Pneumoperitoneum 10/10/2013 04/30/2014 Overview: CXR: Pneumoperitoneum noted under right hemidaphragm. D/w CTS and Cards. Pt asymptomatic. No fevers or tachycardia. Denies any abdominal pain. 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 LVH with apparent volume responsiveness (hemodynamics seemed best with CVP approx 15 and PAD approx 20). DVT prophylaxis: Encourage increased activity, SHAWN hose. Pain following surgery or procedure 10/08/2013 10/14/2013 Overview: Pt w/multiple medication allergies. Reports adequate pain control on current regimen. Lidoderm patches discontinued and steroids are being tapered (started prophylactically for adhesive allergy). Will uptitrate regimen as needed. Hyperchloremic metabolic acidosis 10/08/2013 10/09/2013 Overview: 10/08/13 - slightly acidotic with elevated chloride. Anion pina = +14, delta-delta = -7. No hx or s/s of impaired renal function. Will continue to monitor for now, with plan to treat if hyperchloremia/acidosis persists or worsens Atelectasis/FVO/Pleural effusions 10/08/2013 04/30/2014 Overview: On RA. Wt 2.1 kg above pre-op. CXR: b/l atelectasis. Small effusions. Cont lasix for aggressive diuresis. Plan to continue home bronchodilators, Enc OOB, amb, C&DB, PEP. Mechanically assisted ventilation 10/07/2013 10/08/2013 Overview: 10/07/2013 Residual anesthesia still on board. Will WTE once fully awake and appropriate extubation criteria met, including adequate hemostasis. Acute blood loss anemia 10/07/2013 04/30/20 Overview: 10/07/2013 Intraop blood loss with last intraop Hgb of 10.4 Level is adequate for oxygen delivery. Presently minimal need for vasoactive hemodynamic support. Plan Monitor closely for additional bleeding or coagulopathy Fluid resuscitation as needed Consider blood products if acute decompensation or further bleeding, or with Hgb < 7. 10/09/13 - H/H stable, will continue to monitor Cardiac insufficiency following cardiac surgery 10/07/2013 10/09/2013 Overview: 10/07/2013 Immediately postop, needs low dose inotropic support with epinephrine as well as fluid resuscitation to ensure euvolemia (given her LVH and stage 2 diastolic dysfunction). Wean epi as tolerated. Avoid tachycardia 10/08/13 - wean Epi gtt, high fluid balance - begin lasix Stress hyperglycemia 10/07/2013 12/19/2016 Overview: No hx of DM. Will continue SSI to keep glucose < 160 in post-op period. Tapering steroids. Discharge Planning 10/06/2013 01/02/2014 Overview: Discharge today 10.14.2013. Lives in [facility] with . Scheduled appointment with [place] [facility] at 10:30 on [address] Kim at 11:30 on 10.16.2013. H/o Anxiety 10/06/2013 12/19/2016 Overview: Hx of anxiety. Takes ativan BID at home. Mood stable. Plan to continue as an inpatient and increase dose as needed ASA CLASS II 11/25/2002 11/06/2011 Aortic valve disorder 12/19/2016 Overview: Dr. Mckay documented as of this encounter (statuses as of 11/11/2022) [facility] History of Past illness Narrative* Problem Noted Date Resolved Date Pseudopolyp of ascending colon without complicat ion 05/15/2017 08/31/2020 Microscopic hematuria 05/17/2016 08/31/2020 Angiomyolipoma 05/17/2016 08/31/2020 Overview: Unchanged on recent ct scan Hyperdense renal cyst 05/17/2016 12/07/2021 Overview: Unchanged on recent ct scan Acute right-sided low back pain with right-sided sciatica 03/23/2016 12/19/2016 H/o HTN 10/14/2013 07/06/2022 Overview: Currently normotensive. On BB, IV lasix- will change to po at discharge. Pneumoperitoneum 10/10/2013 04/30/2014 Overview: CXR: Pneumoperitoneum noted under right hemidaphragm. D/w CTS and Cards. Pt asymptomatic. No fevers or tachycardia. Denies any abdominal pain. 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 LVH with apparent volume responsiveness (hemodynamics seemed best with CVP approx 15 and PAD approx 20). DVT prophylaxis: Encourage increased activity, SHAWN vivar. Pain following surgery or procedure 10/08/2013 10/14/2013 Overview: Pt w/multiple medication allergies. Reports adequate pain control on current regimen. Lidoderm patches discontinued and steroids are being tapered (started prophylactically for adhesive allergy). Will uptitrate regimen as needed. Hyperchloremic metabolic acidosis 10/08/2013 10/09/2013 Overview: 10/08/13 - slightly acidotic with elevated chloride. Anion pina = +14, delta-delta = -7. No hx or s/s of impaired renal function. Will continue to monitor for now, with plan to treat if hyperchloremia/acidosis persists or worsens Atelectasis/FVO/Pleural effusions 10/08/2013 04/30/2014 Overview: On RA. Wt 2.1 kg above pre-op. CXR: b/l atelectasis. Small effusions. Cont lasix for aggressive diuresis. Plan to continue home bronchodilators, Enc OOB, amb, C&DB, PEP. Mechanically assisted ventilation 10/07/2013 10/08/2013 Overview: 10/07/2013 Residual anesthesia still on board. Will WTE once fully awake and appropriate extubation criteria met, including adequate hemostasis. Acute blood loss anemia 10/07/2013 04/30/20 14 Overview: 10/07/2013 Intraop blood loss with last intraop Hgb of 10.4 Level is adequate for oxygen delivery. Presently minimal need for vasoactive hemodynamic support. Plan Monitor closely for additional bleeding or coagulopathy Fluid resuscitation as needed Consider blood products if acute decompensation or further bleeding, or with Hgb < 7. 10/09/13 - H/H stable, will continue to monitor Cardiac insufficiency following cardiac surgery 10/07/2013 10/09/2013 Overview: 10/07/2013 Immediately postop, needs low dose inotropic support with epinephrine as well as fluid resuscitation to ensure euvolemia (given her LVH and stage 2 diastolic dysfunction). Wean epi as tolerated. Avoid tachycardia 10/08/13 - wean Epi gtt, high fluid balance - begin lasix Stress hyperglycemia 10/07/2013 12/19/2016 Overview: No hx of DM. Will continue SSI to keep glucose < 160 in post-op period. Tapering steroids. Discharge Planning 10/06/2013 01/02/2014 Overview: Discharge today 10.14.2013. Lives in [facility] with . Scheduled appointment with [place] [facility] at 10:30 on 10.[address] Kim at 11:30 on 10.16.2013. H/o Anxiety 10/06/2013 12/19/2016 Overview: Hx of anxiety. Takes ativan BID at home. Mood stable. Plan to continue as an inpatient and increase dose as needed ASA CLASS II 11/25/2002 11/06/2011 Aortic valve disorder 12/19/2016 Overview: Dr. Mckay documented as of this encounter (statuses as of 11/16/2022) [facility] History of Past illness Narrative* Problem Noted Date Resolved Date Pseudopolyp of ascending colon without complicat ion 05/15/2017 08/31/2020 Microscopic hematuria 05/17/2016 08/31/2020 Angiomyolipoma 05/17/2016 08/31/2020 Overview: Unchanged on recent ct scan Hyperdense renal cyst 05/17/2016 12/07/2021 Overview: Unchanged on recent ct scan Acute right-sided low back pain with right-sided sciatica 03/23/2016 12/19/2016 H/o HTN 10/14/2013 07/06/2022 Overview: Currently normotensive. On BB, IV lasix- will change to po at discharge. Pneumoperitoneum 10/10/2013 04/30/2014 Overview: CXR: Pneumoperitoneum noted under right hemidaphragm. D/w CTS and Cards. Pt asymptomatic. No fevers or tachycardia. Denies any abdominal pain. 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 LVH with apparent volume responsiveness (hemodynamics seemed best with CVP approx 15 and PAD approx 20). DVT prophylaxis: Encourage increased activity, SHAWN hose. Pain following surgery or procedure 10/08/2013 10/14/2013 Overview: Pt w/multiple medication allergies. Reports adequate pain control on current regimen. Lidoderm patches discontinued and steroids are being tapered (started prophylactically for adhesive allergy). Will uptitrate regimen as needed. Hyperchloremic metabolic acidosis 10/08/2013 10/09/2013 Overview: 10/08/13 - slightly acidotic with elevated chloride. Anion pina = +14, delta-delta = -7. No hx or s/s of impaired renal function. Will continue to monitor for now, with plan to treat if hyperchloremia/acidosis persists or worsens Atelectasis/FVO/Pleural effusions 10/08/2013 04/30/2014 Overview: On RA. Wt 2.1 kg above pre-op. CXR: b/l atelectasis. Small effusions. Cont lasix for aggressive diuresis. Plan to continue home bronchodilators, Enc OOB, amb, C&DB, PEP. Mechanically assisted ventilation 10/07/2013 10/08/2013 Overview: 10/07/2013 Residual anesthesia still on board. Will WTE once fully awake and appropriate extubation criteria met, including adequate hemostasis. Acute blood loss anemia 10/07/2013 04/30/20 14 Overview: 10/07/2013 Intraop blood loss with last intraop Hgb of 10.4 Level is adequate for oxygen delivery. Presently minimal need for vasoactive hemodynamic support. Plan Monitor closely for additional bleeding or coagulopathy Fluid resuscitation as needed Consider blood products if acute decompensation or further bleeding, or with Hgb < 7. 10/09/13 - H/H stable, will continue to monitor Cardiac insufficiency following cardiac surgery 10/07/2013 10/09/2013 Overview: 10/07/2013 Immediately postop, needs low dose inotropic support with epinephrine as well as fluid resuscitation to ensure euvolemia (given her LVH and stage 2 diastolic dysfunction). Wean epi as tolerated. Avoid tachycardia 10/08/13 - wean Epi gtt, high fluid balance - begin lasix Stress hyperglycemia 10/07/2013 12/19/2016 Overview: No hx of DM. Will continue SSI to keep glucose < 160 in post-op period. Tapering steroids. Discharge Planning 10/06/2013 01/02/2014 Overview: Discharge today 10.14.2013. Lives in [facility] with . Scheduled appointment with [place] [facility] at 10:30 on [address] Kim at 11:30 on 10.16.2013. H/o Anxiety 10/06/2013 12/19/2016 Overview: Hx of anxiety. Takes ativan BID at home. Mood stable. Plan to continue as an inpatient and increase dose as needed ASA CLASS II 11/25/2002 11/06/2011 Aortic valve disorder 12/19/2016 Overview: Dr. Mckay documented as of this encounter (statuses as of 11/17/2022) [facility] History of Past illness Narrative* Problem Noted Date Resolved Date Pseudopolyp of ascending colon without complicat ion 05/15/2017 08/31/2020 Microscopic hematuria 05/17/2016 08/31/2020 Angiomyolipoma 05/17/2016 08/31/2020 Overview: Unchanged on recent ct scan Hyperdense renal cyst 05/17/2016 12/07/2021 Overview: Unchanged on recent ct scan Acute right-sided low back pain with right-sided sciatica 03/23/2016 12/19/2016 H/o HTN 10/14/2013 07/06/2022 Overview: Currently normotensive. On BB, IV lasix- will change to po at discharge. Pneumoperitoneum 10/10/2013 04/30/2014 Overview: CXR: Pneumoperitoneum noted under right hemidaphragm. D/w CTS and Cards. Pt asymptomatic. No fevers or tachycardia. Denies any abdominal pain. 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 LVH with apparent volume responsiveness (hemodynamics seemed best with CVP approx 15 and PAD approx 20). DVT prophylaxis: Encourage increased activity, SHAWN hose. Pain following surgery or procedure 10/08/2013 10/14/2013 Overview: Pt w/multiple medication allergies. Reports adequate pain control on current regimen. Lidoderm patches discontinued and steroids are being tapered (started prophylactically for adhesive allergy). Will uptitrate regimen as needed. Hyperchloremic metabolic acidosis 10/08/2013 10/09/2013 Overview: 10/08/13 - slightly acidotic with elevated chloride. Anion pina = +14, delta-delta = -7. No hx or s/s of impaired renal function. Will continue to monitor for now, with plan to treat if hyperchloremia/acidosis persists or worsens Atelectasis/FVO/Pleural effusions 10/08/2013 04/30/2014 Overview: On RA. Wt 2.1 kg above pre-op. CXR: b/l atelectasis. Small effusions. Cont lasix for aggressive diuresis. Plan to continue home bronchodilators, Enc OOB, amb, C&DB, PEP. Mechanically assisted ventilation 10/07/2013 10/08/2013 Overview: 10/07/2013 Residual anesthesia still on board. Will WTE once fully awake and appropriate extubation criteria met, including adequate hemostasis. Acute blood loss anemia 10/07/2013 04/30/20 Overview: 10/07/2013 Intraop blood loss with last intraop Hgb of 10.4 Level is adequate for oxygen delivery. Presently minimal need for vasoactive hemodynamic support. Plan Monitor closely for additional bleeding or coagulopathy Fluid resuscitation as needed Consider blood products if acute decompensation or further bleeding, or with Hgb < 7. 10/09/13 - H/H stable, will continue to monitor Cardiac insufficiency following cardiac surgery 10/07/2013 10/09/2013 Overview: 10/07/2013 Immediately postop, needs low dose inotropic support with epinephrine as well as fluid resuscitation to ensure euvolemia (given her LVH and stage 2 diastolic dysfunction). Wean epi as tolerated. Avoid tachycardia 10/08/13 - wean Epi gtt, high fluid balance - begin lasix Stress hyperglycemia 10/07/2013 12/19/2016 Overview: No hx of DM. Will continue SSI to keep glucose < 160 in post-op period. Tapering steroids. Discharge Planning 10/06/2013 01/02/2014 Overview: Discharge today 10.14.2013. Lives in [facility] with . Scheduled appointment with [place] [facility] at 10:30 on 10.[address] Kim at 11:30 on 10.16.2013. H/o Anxiety 10/06/2013 12/19/2016 Overview: Hx of anxiety. Takes ativan BID at home. Mood stable. Plan to continue as an inpatient and increase dose as needed ASA CLASS II 11/25/2002 11/06/2011 Aortic valve disorder 12/19/2016 Overview: Dr. Mckay documented as of this encounter (statuses as of 11/21/2022) [facility] History of Past illness Narrative* Problem Noted Date Resolved Date Pseudopolyp of ascending colon without complicat ion 05/15/2017 08/31/2020 Microscopic hematuria 05/17/2016 08/31/2020 Angiomyolipoma 05/17/2016 08/31/2020 Overview: Unchanged on recent ct scan Hyperdense renal cyst 05/17/2016 12/07/2021 Overview: Unchanged on recent ct scan Acute right-sided low back pain with right-sided sciatica 03/23/2016 12/19/2016 H/o HTN 10/14/2013 07/06/2022 Overview: Currently normotensive. On BB, IV lasix- will change to po at discharge. Pneumoperitoneum 10/10/2013 04/30/2014 Overview: CXR: Pneumoperitoneum noted under right hemidaphragm. D/w CTS and Cards. Pt asymptomatic. No fevers or tachycardia. Denies any abdominal pain. 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 LVH with apparent volume responsiveness (hemodynamics seemed best with CVP approx 15 and PAD approx 20). DVT prophylaxis: Encourage increased activity, SHAWN hose. Pain following surgery or procedure 10/08/2013 10/14/2013 Overview: Pt w/multiple medication allergies. Reports adequate pain control on current regimen. Lidoderm patches discontinued and steroids are being tapered (started prophylactically for adhesive allergy). Will uptitrate regimen as needed. Hyperchloremic metabolic acidosis 10/08/2013 10/09/2013 Overview: 10/08/13 - slightly acidotic with elevated chloride. Anion pina = +14, delta-delta = -7. No hx or s/s of impaired renal function. Will continue to monitor for now, with plan to treat if hyperchloremia/acidosis persists or worsens Atelectasis/FVO/Pleural effusions 10/08/2013 04/30/2014 Overview: On RA. Wt 2.1 kg above pre-op. CXR: b/l atelectasis. Small effusions. Cont lasix for aggressive diuresis. Plan to continue home bronchodilators, Enc OOB, amb, C&DB, PEP. Mechanically assisted ventilation 10/07/2013 10/08/2013 Overview: 10/07/2013 Residual anesthesia still on board. Will WTE once fully awake and appropriate extubation criteria met, including adequate hemostasis. Acute blood loss anemia 10/07/2013 04/30/20 Overview: 10/07/2013 Intraop blood loss with last intraop Hgb of 10.4 Level is adequate for oxygen delivery. Presently minimal need for vasoactive hemodynamic support. Plan Monitor closely for additional bleeding or coagulopathy Fluid resuscitation as needed Consider blood products if acute decompensation or further bleeding, or with Hgb < 7. 10/09/13 - H/H stable, will continue to monitor Cardiac insufficiency following cardiac surgery 10/07/2013 10/09/2013 Overview: 10/07/2013 Immediately postop, needs low dose inotropic support with epinephrine as well as fluid resuscitation to ensure euvolemia (given her LVH and stage 2 diastolic dysfunction). Wean epi as tolerated. Avoid tachycardia 10/08/13 - wean Epi gtt, high fluid balance - begin lasix Stress hyperglycemia 10/07/2013 12/19/2016 Overview: No hx of DM. Will continue SSI to keep glucose < 160 in post-op period. Tapering steroids. Discharge Planning 10/06/2013 01/02/2014 Overview: Discharge today 10.14.2013. Lives in [facility] with . Scheduled appointment with [place] [facility] at 10:30 on 10.[address] Kim at 11:30 on 10.16.2013. H/o Anxiety 10/06/2013 12/19/2016 Overview: Hx of anxiety. Takes ativan BID at home. Mood stable. Plan to continue as an inpatient and increase dose as needed ASA CLASS II 11/25/2002 11/06/2011 Aortic valve disorder 12/19/2016 Overview: Dr. Mckay documented as of this encounter (statuses as of 11/21/2022) [facility] History of Past illness Narrative* Problem Noted Date Resolved Date Pseudopolyp of ascending colon without complicat ion 05/15/2017 08/31/2020 Microscopic hematuria 05/17/2016 08/31/2020 Angiomyolipoma 05/17/2016 08/31/2020 Overview: Unchanged on recent ct scan Hyperdense renal cyst 05/17/2016 12/07/2021 Overview: Unchanged on recent ct scan Acute right-sided low back pain with right-sided sciatica 03/23/2016 12/19/2016 H/o HTN 10/14/2013 07/06/2022 Overview: Currently normotensive. On BB, IV lasix- will change to po at discharge. Pneumoperitoneum 10/10/2013 04/30/2014 Overview: CXR: Pneumoperitoneum noted under right hemidaphragm. D/w CTS and Cards. Pt asymptomatic. No fevers or tachycardia. Denies any abdominal pain. 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 LVH with apparent volume responsiveness (hemodynamics seemed best with CVP approx 15 and PAD approx 20). DVT prophylaxis: Encourage increased activity, SHAWN hose. Pain following surgery or procedure 10/08/2013 10/14/2013 Overview: Pt w/multiple medication allergies. Reports adequate pain control on current regimen. Lidoderm patches discontinued and steroids are being tapered (started prophylactically for adhesive allergy). Will uptitrate regimen as needed. Hyperchloremic metabolic acidosis 10/08/2013 10/09/2013 Overview: 10/08/13 - slightly acidotic with elevated chloride. Anion pina = +14, delta-delta = -7. No hx or s/s of impaired renal function. Will continue to monitor for now, with plan to treat if hyperchloremia/acidosis persists or worsens Atelectasis/FVO/Pleural effusions 10/08/2013 04/30/2014 Overview: On RA. Wt 2.1 kg above pre-op. CXR: b/l atelectasis. Small effusions. Cont lasix for aggressive diuresis. Plan to continue home bronchodilators, Enc OOB, amb, C&DB, PEP. Mechanically assisted ventilation 10/07/2013 10/08/2013 Overview: 10/07/2013 Residual anesthesia still on board. Will WTE once fully awake and appropriate extubation criteria met, including adequate hemostasis. Acute blood loss anemia 10/07/2013 04/30/20 Overview: 10/07/2013 Intraop blood loss with last intraop Hgb of 10.4 Level is adequate for oxygen delivery. Presently minimal need for vasoactive hemodynamic support. Plan Monitor closely for additional bleeding or coagulopathy Fluid resuscitation as needed Consider blood products if acute decompensation or further bleeding, or with Hgb < 7. / - H/H stable, will continue to monitor Cardiac insufficiency following cardiac surgery 10/07/2013 10/09/2013 Overview: 10/07/2013 Immediately postop, needs low dose inotropic support with epinephrine as well as fluid resuscitation to ensure euvolemia (given her LVH and stage 2 diastolic dysfunction). Wean epi as tolerated. Avoid tachycardia 10/08/13 - wean Epi gtt, high fluid balance - begin lasix Stress hyperglycemia 10/07/2013 12/19/2016 Overview: No hx of DM. Will continue SSI to keep glucose < 160 in post-op period. Tapering steroids. Discharge Planning 10/06/2013 01/02/2014 Overview: Discharge today 10.14.2013. Lives in [facility] with . Scheduled appointment with [place] [facility] at 10:30 on 10.[address] Kim at 11:30 on 10.16.2013. H/o Anxiety 10/06/2013 12/19/2016 Overview: Hx of anxiety. Takes ativan BID at home. Mood stable. Plan to continue as an inpatient and increase dose as needed ASA CLASS II 11/25/2002 11/06/2011 Aortic valve disorder 12/19/2016 Overview: Dr. Mckay documented as of this encounter (statuses as of 11/24/2022) [facility] History of Past illness Narrative* Problem Noted Date Resolved Date Pseudopolyp of ascending colon without complicat ion 05/15/2017 08/31/2020 Microscopic hematuria 05/17/2016 08/31/2020 Angiomyolipoma 05/17/2016 08/31/2020 Overview: Unchanged on recent ct scan Hyperdense renal cyst 05/17/2016 12/07/2021 Overview: Unchanged on recent ct scan Acute right-sided low back pain with right-sided sciatica 03/23/2016 12/19/2016 H/o HTN 10/14/2013 07/06/2022 Overview: Currently normotensive. On BB, IV lasix- will change to po at discharge. Pneumoperitoneum 10/10/2013 04/30/2014 Overview: CXR: Pneumoperitoneum noted under right hemidaphragm. D/w CTS and Cards. Pt asymptomatic. No fevers or tachycardia. Denies any abdominal pain. 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 LVH with apparent volume responsiveness (hemodynamics seemed best with CVP approx 15 and PAD approx 20). DVT prophylaxis: Encourage increased activity, SHAWN hose. Pain following surgery or procedure 10/08/2013 10/14/2013 Overview: Pt w/multiple medication allergies. Reports adequate pain control on current regimen. Lidoderm patches discontinued and steroids are being tapered (started prophylactically for adhesive allergy). Will uptitrate regimen as needed. Hyperchloremic metabolic acidosis 10/08/2013 10/09/2013 Overview: 10/08/13 - slightly acidotic with elevated chloride. Anion pina = +14, delta-delta = -7. No hx or s/s of impaired renal function. Will continue to monitor for now, with plan to treat if hyperchloremia/acidosis persists or worsens Atelectasis/FVO/Pleural effusions 10/08/2013 04/30/2014 Overview: On RA. Wt 2.1 kg above pre-op. CXR: b/l atelectasis. Small effusions. Cont lasix for aggressive diuresis. Plan to continue home bronchodilators, Enc OOB, amb, C&DB, PEP. Mechanically assisted ventilation 10/07/2013 10/08/2013 Overview: 10/07/2013 Residual anesthesia still on board. Will WTE once fully awake and appropriate extubation criteria met, including adequate hemostasis. Acute blood loss anemia 10/07/2013 04/30/20 Overview: 10/07/2013 Intraop blood loss with last intraop Hgb of 10.4 Level is adequate for oxygen delivery. Presently minimal need for vasoactive hemodynamic support. Plan Monitor closely for additional bleeding or coagulopathy Fluid resuscitation as needed Consider blood products if acute decompensation or further bleeding, or with Hgb < 7. 10/09/13 - H/H stable, will continue to monitor Cardiac insufficiency following cardiac surgery 10/07/2013 10/09/2013 Overview: 10/07/2013 Immediately postop, needs low dose inotropic support with epinephrine as well as fluid resuscitation to ensure euvolemia (given her LVH and stage 2 diastolic dysfunction). Wean epi as tolerated. Avoid tachycardia 10/08/13 - wean Epi gtt, high fluid balance - begin lasix Stress hyperglycemia 10/07/2013 12/19/2016 Overview: No hx of DM. Will continue SSI to keep glucose < 160 in post-op period. Tapering steroids. Discharge Planning 10/06/2013 01/02/2014 Overview: Discharge today 10.14.2013. Lives in [facility] with . Scheduled appointment with [place] [facility] at 10:30 on [address] Kim at 11:30 on 10.16.2013. H/o Anxiety 10/06/2013 12/19/2016 Overview: Hx of anxiety. Takes ativan BID at home. Mood stable. Plan to continue as an inpatient and increase dose as needed ASA CLASS II 11/25/2002 11/06/2011 Aortic valve disorder 12/19/2016 Overview: Dr. Mckay documented as of this encounter (statuses as of 11/28/2022) [facility] Past illness Narrative* Problem Noted Date Resolved Date Pseudopolyp of ascending colon without complicat ion 05/15/2017 08/31/2020 Microscopic hematuria 05/17/2016 08/31/2020 Angiomyolipoma 05/17/2016 08/31/2020 Overview: Unchanged on recent ct scan Hyperdense renal cyst 05/17/2016 12/07/2021 Overview: Unchanged on recent ct scan Acute right-sided low back pain with right-sided sciatica 03/23/2016 12/19/2016 H/o HTN 10/14/2013 07/06/2022 Overview: Currently normotensive. On BB, IV lasix- will change to po at discharge. Pneumoperitoneum 10/10/2013 04/30/2014 Overview: CXR: Pneumoperitoneum noted under right hemidaphragm. D/w CTS and Cards. Pt asymptomatic. No fevers or tachycardia. Denies any abdominal pain. 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 LVH with apparent volume responsiveness (hemodynamics seemed best with CVP approx 15 and PAD approx 20). DVT prophylaxis: Encourage increased activity, SHAWN hose. Pain following surgery or procedure 10/08/2013 10/14/2013 Overview: Pt w/multiple medication allergies. Reports adequate pain control on current regimen. Lidoderm patches discontinued and steroids are being tapered (started prophylactically for adhesive allergy). Will uptitrate regimen as needed. Hyperchloremic metabolic acidosis 10/08/2013 10/09/2013 Overview: 10/08/13 - slightly acidotic with elevated chloride. Anion pina = +14, delta-delta = -7. No hx or s/s of impaired renal function. Will continue to monitor for now, with plan to treat if hyperchloremia/acidosis persists or worsens Atelectasis/FVO/Pleural effusions 10/08/2013 04/30/2014 Overview: On RA. Wt 2.1 kg above pre-op. CXR: b/l atelectasis. Small effusions. Cont lasix for aggressive diuresis. Plan to continue home bronchodilators, Enc OOB, amb, C&DB, PEP. Mechanically assisted ventilation 10/07/2013 10/08/2013 Overview: 10/07/2013 Residual anesthesia still on board. Will WTE once fully awake and appropriate extubation criteria met, including adequate hemostasis. Acute blood loss anemia 10/07/2013 04/30/20 Overview: 10/07/2013 Intraop blood loss with last intraop Hgb of 10.4 Level is adequate for oxygen delivery. Presently minimal need for vasoactive hemodynamic support. Plan Monitor closely for additional bleeding or coagulopathy Fluid resuscitation as needed Consider blood products if acute decompensation or further bleeding, or with Hgb < 7. 10/09/13 - H/H stable, will continue to monitor Cardiac insufficiency following cardiac surgery 10/07/2013 10/09/2013 Overview: 10/07/2013 Immediately postop, needs low dose inotropic support with epinephrine as well as fluid resuscitation to ensure euvolemia (given her LVH and stage 2 diastolic dysfunction). Wean epi as tolerated. Avoid tachycardia 10/08/13 - wean Epi gtt, high fluid balance - begin lasix Stress hyperglycemia 10/07/2013 12/19/2016 Overview: No hx of DM. Will continue SSI to keep glucose < 160 in post-op period. Tapering steroids. Discharge Planning 10/06/2013 01/02/2014 Overview: Discharge today 10.14.2013. Lives in [facility] with . Scheduled appointment with [place] [facility] at 10:30 on 10.[address] Kim at 11:30 on 10.16.2013. H/o Anxiety 10/06/2013 12/19/2016 Overview: Hx of anxiety. Takes ativan BID at home. Mood stable. Plan to continue as an inpatient and increase dose as needed ASA CLASS II 11/25/2002 11/06/2011 Aortic valve disorder 12/19/2016 Overview: Dr. Mckay documented as of this encounter (statuses as of 11/30/2022) [facility] History of Past illness Narrative* Problem Noted Date Resolved Date Pseudopolyp of ascending colon without complicat ion 05/15/2017 08/31/2020 Microscopic hematuria 05/17/2016 08/31/2020 Angiomyolipoma 05/17/2016 08/31/2020 Overview: Unchanged on recent ct scan Hyperdense renal cyst 05/17/2016 12/07/2021 Overview: Unchanged on recent ct scan Acute right-sided low back pain with right-sided sciatica 03/23/2016 12/19/2016 H/o HTN 10/14/2013 07/06/2022 Overview: Currently normotensive. On BB, IV lasix- will change to po at discharge. Pneumoperitoneum 10/10/2013 04/30/2014 Overview: CXR: Pneumoperitoneum noted under right hemidaphragm. D/w CTS and Cards. Pt asymptomatic. No fevers or tachycardia. Denies any abdominal pain. 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 LVH with apparent volume responsiveness (hemodynamics seemed best with CVP approx 15 and PAD approx 20). DVT prophylaxis: Encourage increased activity, SHAWN hose. Pain following surgery or procedure 10/08/2013 10/14/2013 Overview: Pt w/multiple medication allergies. Reports adequate pain control on current regimen. Lidoderm patches discontinued and steroids are being tapered (started prophylactically for adhesive allergy). Will uptitrate regimen as needed. Hyperchloremic metabolic acidosis 10/08/2013 10/09/2013 Overview: 10/08/13 - slightly acidotic with elevated chloride. Anion pina = +14, delta-delta = -7. No hx or s/s of impaired renal function. Will continue to monitor for now, with plan to treat if hyperchloremia/acidosis persists or worsens Atelectasis/FVO/Pleural effusions 10/08/2013 04/30/2014 Overview: On RA. Wt 2.1 kg above pre-op. CXR: b/l atelectasis. Small effusions. Cont lasix for aggressive diuresis. Plan to continue home bronchodilators, Enc OOB, amb, C&DB, PEP. Mechanically assisted ventilation 10/07/2013 10/08/2013 Overview: 10/07/2013 Residual anesthesia still on board. Will WTE once fully awake and appropriate extubation criteria met, including adequate hemostasis. Acute blood loss anemia 10/07/2013 04/30/20 Overview: 10/07/2013 Intraop blood loss with last intraop Hgb of 10.4 Level is adequate for oxygen delivery. Presently minimal need for vasoactive hemodynamic support. Plan Monitor closely for additional bleeding or coagulopathy Fluid resuscitation as needed Consider blood products if acute decompensation or further bleeding, or with Hgb < 7. 10/09/13 - H/H stable, will continue to monitor Cardiac insufficiency following cardiac surgery 10/07/2013 10/09/2013 Overview: 10/07/2013 Immediately postop, needs low dose inotropic support with epinephrine as well as fluid resuscitation to ensure euvolemia (given her LVH and stage 2 diastolic dysfunction). Wean epi as tolerated. Avoid tachycardia 10/08/13 - wean Epi gtt, high fluid balance - begin lasix Stress hyperglycemia 10/07/2013 12/19/2016 Overview: No hx of DM. Will continue SSI to keep glucose < 160 in post-op period. Tapering steroids. Discharge Planning 10/06/2013 01/02/2014 Overview: Discharge today 10.14.2013. Lives in [facility] with . Scheduled appointment with [place] [facility] at 10:30 on 10.[address] Kim at 11:30 on 10.16.2013. H/o Anxiety 10/06/2013 12/19/2016 Overview: Hx of anxiety. Takes ativan BID at home. Mood stable. Plan to continue as an inpatient and increase dose as needed ASA CLASS II 11/25/2002 11/06/2011 Aortic valve disorder 12/19/2016 Overview: Dr. Mckay documented as of this encounter (statuses as of 11/30/2022) [facility] History of Past illness Narrative* Problem Noted Date Resolved Date Pseudopolyp of ascending colon without complicat ion 05/15/2017 08/31/2020 Microscopic hematuria 05/17/2016 08/31/2020 Angiomyolipoma 05/17/2016 08/31/2020 Overview: Unchanged on recent ct scan Hyperdense renal cyst 05/17/2016 12/07/2021 Overview: Unchanged on recent ct scan Acute right-sided low back pain with right-sided sciatica 03/23/2016 12/19/2016 H/o HTN 10/14/2013 07/06/2022 Overview: Currently normotensive. On BB, IV lasix- will change to po at discharge. Pneumoperitoneum 10/10/2013 04/30/2014 Overview: CXR: Pneumoperitoneum noted under right hemidaphragm. D/w CTS and Cards. Pt asymptomatic. No fevers or tachycardia. Denies any abdominal pain. 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 LVH with apparent volume responsiveness (hemodynamics seemed best with CVP approx 15 and PAD approx 20). DVT prophylaxis: Encourage increased activity, SHAWN hose. Pain following surgery or procedure 10/08/2013 10/14/2013 Overview: Pt w/multiple medication allergies. Reports adequate pain control on current regimen. Lidoderm patches discontinued and steroids are being tapered (started prophylactically for adhesive allergy). Will uptitrate regimen as needed. Hyperchloremic metabolic acidosis 10/08/2013 10/09/2013 Overview: 10/08/13 - slightly acidotic with elevated chloride. Anion pina = +14, delta-delta = -7. No hx or s/s of impaired renal function. Will continue to monitor for now, with plan to treat if hyperchloremia/acidosis persists or worsens Atelectasis/FVO/Pleural effusions 10/08/2013 04/30/2014 Overview: On RA. Wt 2.1 kg above pre-op. CXR: b/l atelectasis. Small effusions. Cont lasix for aggressive diuresis. Plan to continue home bronchodilators, Enc OOB, amb, C&DB, PEP. Mechanically assisted ventilation 10/07/2013 10/08/2013 Overview: 10/07/2013 Residual anesthesia still on board. Will WTE once fully awake and appropriate extubation criteria met, including adequate hemostasis. Acute blood loss anemia 10/07/2013 04/30/20 14 Overview: 10/07/2013 Intraop blood loss with last intraop Hgb of 10.4 Level is adequate for oxygen delivery. Presently minimal need for vasoactive hemodynamic support. Plan Monitor closely for additional bleeding or coagulopathy Fluid resuscitation as needed Consider blood products if acute decompensation or further bleeding, or with Hgb < 7. 10/09/13 - H/H stable, will continue to monitor Cardiac insufficiency following cardiac surgery 10/07/2013 10/09/2013 Overview: 10/07/2013 Immediately postop, needs low dose inotropic support with epinephrine as well as fluid resuscitation to ensure euvolemia (given her LVH and stage 2 diastolic dysfunction). Wean epi as tolerated. Avoid tachycardia 10/08/13 - wean Epi gtt, high fluid balance - begin lasix Stress hyperglycemia 10/07/2013 12/19/2016 Overview: No hx of DM. Will continue SSI to keep glucose < 160 in post-op period. Tapering steroids. Discharge Planning 10/06/2013 01/02/2014 Overview: Discharge today 10.14.2013. Lives in [facility] with . Scheduled appointment with [place] [facility] at 10:30 on 10.[address] Kim at 11:30 on 10.16.2013. H/o Anxiety 10/06/2013 12/19/2016 Overview: Hx of anxiety. Takes ativan BID at home. Mood stable. Plan to continue as an inpatient and increase dose as needed ASA CLASS II 11/25/2002 11/06/2011 Aortic valve disorder 12/19/2016 Overview: Dr. Mckay documented as of this encounter (statuses as of 12/05/2022) [facility] History of Past illness Narrative* Problem Noted Date Resolved Date Pseudopolyp of ascending colon without complicat ion 05/15/2017 08/31/2020 Microscopic hematuria 05/17/2016 08/31/2020 Angiomyolipoma 05/17/2016 08/31/2020 Overview: Unchanged on recent ct scan Hyperdense renal cyst 05/17/2016 12/07/2021 Overview: Unchanged on recent ct scan Acute right-sided low back pain with right-sided sciatica 03/23/2016 12/19/2016 H/o HTN 10/14/2013 07/06/2022 Overview: Currently normotensive. On BB, IV lasix- will change to po at discharge. Pneumoperitoneum 10/10/2013 04/30/2014 Overview: CXR: Pneumoperitoneum noted under right hemidaphragm. D/w CTS and Cards. Pt asymptomatic. No fevers or tachycardia. Denies any abdominal pain. Improving Diaphragmatic eventration 10/10/20132013 SUMMARY 10/10/2013 06/16/2016 Overview: Indication for procedure: AI and , progressive SOB LVEF: 52% RVF: Normal Pacing wires: No Cath: nml Surgeries: 10/08/2013 Redo sternotomy: AVR (#21 [place] mechanical valve) PMHx: HTN, HPL, Asthma, GERD, Anxiety, Depression, hypothyroidism OR Course: Uncomplicated Unit Course: Mod. LVH with apparent volume responsiveness (hemodynamics seemed best with CVP approx 15 and PAD approx 20). DVT prophylaxis: Encourage increased activity, SHANW hose. Pain following surgery or procedure 10/08/2013 10/14/2013 Overview: Pt w/multiple medication allergies. Reports adequate pain control on current regimen. Lidoderm patches discontinued and steroids are being tapered (started prophylactically for adhesive allergy). Will uptitrate regimen as needed. Hyperchloremic metabolic acidosis 10/08/2013 10/09/2013 Overview: 10/08/13 - slightly acidotic with elevated chloride. Anion pina = +14, delta-delta = -7. No hx or s/s of impaired renal function. Will continue to monitor for now, with plan to treat if hyperchloremia/acidosis persists or worsens Atelectasis/FVO/Pleural effusions 10/08/2013 04/30/2014 Overview: On RA. Wt 2.1 kg above pre-op. CXR: b/l atelectasis. Small effusions. Cont lasix for aggressive diuresis. Plan to continue home bronchodilators, Enc OOB, amb, C&DB, PEP. Mechanically assisted ventilation 10/07/2013 10/08/2013 Overview: 10/07/2013 Residual anesthesia still on board. Will WTE once fully awake and appropriate extubation criteria met, including adequate hemostasis. Acute blood loss anemia 10/07/2013 04/30/20 Overview: 10/07/2013 Intraop blood loss with last intraop Hgb of 10.4 Level is adequate for oxygen delivery. Presently minimal need for vasoactive hemodynamic support. Plan Monitor closely for additional bleeding or coagulopathy Fluid resuscitation as needed Consider blood products if acute decompensation or further bleeding, or with Hgb < 7. 10/09/13 - H/H stable, will continue to monitor Cardiac insufficiency following cardiac surgery 10/07/2013 10/09/2013 Overview: 10/07/2013 Immediately postop, needs low dose inotropic support with epinephrine as well as fluid resuscitation to ensure euvolemia (given her LVH and stage 2 diastolic dysfunction). Wean epi as tolerated. Avoid tachycardia 10/08/13 - wean Epi gtt, high fluid balance - begin lasix Stress hyperglycemia 10/07/2013 12/19/2016 Overview: No hx of DM. Will continue SSI to keep glucose < 160 in post-op period. Tapering steroids. Discharge Planning 10/06/2013 01/02/2014 Overview: Discharge today 10.14.2013. Lives in [facility] with . Scheduled appointment with [place] [facility] at 10:30 on 10.[address] Kim at 11:30 on 10.16.2013. H/o Anxiety 10/06/2013 12/19/2016 Overview: Hx of anxiety. Takes ativan BID at home. Mood stable. Plan to continue as an inpatient and increase dose as needed ASA CLASS II 11/25/2002 11/06/2011 Aortic valve disorder 12/19/2016 Overview: Dr. Mckay documented as of this encounter (statuses as of 12/06/2022) [facility] History of Past illness Narrative* Problem Noted Date Resolved Date Pseudopolyp of ascending colon without complicat ion 05/15/2017 08/31/2020 Microscopic hematuria 05/17/2016 08/31/2020 Angiomyolipoma 05/17/2016 08/31/2020 Overview: Unchanged on recent ct scan Hyperdense renal cyst 05/17/2016 12/07/2021 Overview: Unchanged on recent ct scan Acute right-sided low back pain with right-sided sciatica 03/23/2016 12/19/2016 H/o HTN 10/14/2013 07/06/2022 Overview: Currently normotensive. On BB, IV lasix- will change to po at discharge. Pneumoperitoneum 10/10/2013 04/30/2014 Overview: CXR: Pneumoperitoneum noted under right hemidaphragm. D/w CTS and Cards. Pt asymptomatic. No fevers or tachycardia. Denies any abdominal pain. 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 LVH with apparent volume responsiveness (hemodynamics seemed best with CVP approx 15 and PAD approx 20). DVT prophylaxis: Encourage increased activity, SHAWN hose. Pain following surgery or procedure 10/08/2013 10/14/2013 Overview: Pt w/multiple medication allergies. Reports adequate pain control on current regimen. Lidoderm patches discontinued and steroids are being tapered (started prophylactically for adhesive allergy). Will uptitrate regimen as needed. Hyperchloremic metabolic acidosis 10/08/2013 10/09/2013 Overview: 10/08/13 - slightly acidotic with elevated chloride. Anion pina = +14, delta-delta = -7. No hx or s/s of impaired renal function. Will continue to monitor for now, with plan to treat if hyperchloremia/acidosis persists or worsens Atelectasis/FVO/Pleural effusions 10/08/2013 04/30/2014 Overview: On RA. Wt 2.1 kg above pre-op. CXR: b/l atelectasis. Small effusions. Cont lasix for aggressive diuresis. Plan to continue home bronchodilators, Enc OOB, amb, C&DB, PEP. Mechanically assisted ventilation 10/07/2013 10/08/2013 Overview: 10/07/2013 Residual anesthesia still on board. Will WTE once fully awake and appropriate extubation criteria met, including adequate hemostasis. Acute blood loss anemia 10/07/2013 04/30/20 Overview: 10/07/2013 Intraop blood loss with last intraop Hgb of 10.4 Level is adequate for oxygen delivery. Presently minimal need for vasoactive hemodynamic support. Plan Monitor closely for additional bleeding or coagulopathy Fluid resuscitation as needed Consider blood products if acute decompensation or further bleeding, or with Hgb < 7. 10/09/13 - H/H stable, will continue to monitor Cardiac insufficiency following cardiac surgery 10/07/2013 10/09/2013 Overview: 10/07/2013 Immediately postop, needs low dose inotropic support with epinephrine as well as fluid resuscitation to ensure euvolemia (given her LVH and stage 2 diastolic dysfunction). Wean epi as tolerated. Avoid tachycardia 10/08/13 - wean Epi gtt, high fluid balance - begin lasix Stress hyperglycemia 10/07/2013 12/19/2016 Overview: No hx of DM. Will continue SSI to keep glucose < 160 in post-op period. Tapering steroids. Discharge Planning 10/06/2013 01/02/2014 Overview: Discharge today 10.14.2013. Lives in [facility] with . Scheduled appointment with [place] [facility] at 10:30 on 10.[address] Kim at 11:30 on 10.16.2013. H/o Anxiety 10/06/2013 12/19/2016 Overview: Hx of anxiety. Takes ativan BID at home. Mood stable. Plan to continue as an inpatient and increase dose as needed ASA CLASS II 11/25/2002 11/06/2011 Aortic valve disorder 12/19/2016 Overview: Dr. Mckay documented as of this encounter (statuses as of 12/08/2022) [facility] History of Past illness Narrative* Problem Noted Date Resolved Date Pseudopolyp of ascending colon without complicat ion 05/15/2017 08/31/2020 Microscopic hematuria 05/17/2016 08/31/2020 Angiomyolipoma 05/17/2016 08/31/2020 Overview: Unchanged on recent ct scan Hyperdense renal cyst 05/17/2016 12/07/2021 Overview: Unchanged on recent ct scan Acute right-sided low back pain with right-sided sciatica 03/23/2016 12/19/2016 H/o HTN 10/14/2013 07/06/2022 Overview: Currently normotensive. On BB, IV lasix- will change to po at discharge. Pneumoperitoneum 10/10/2013 04/30/2014 Overview: CXR: Pneumoperitoneum noted under right hemidaphragm. D/w CTS and Cards. Pt asymptomatic. No fevers or tachycardia. Denies any abdominal pain. 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 LVH with apparent volume responsiveness (hemodynamics seemed best with CVP approx 15 and PAD approx 20). DVT prophylaxis: Encourage increased activity, SHAWN hose. Pain following surgery or procedure 10/08/2013 10/14/2013 Overview: Pt w/multiple medication allergies. Reports adequate pain control on current regimen. Lidoderm patches discontinued and steroids are being tapered (started prophylactically for adhesive allergy). Will uptitrate regimen as needed. Hyperchloremic metabolic acidosis 10/08/2013 10/09/2013 Overview: 10/08/13 - slightly acidotic with elevated chloride. Anion pina = +14, delta-delta = -7. No hx or s/s of impaired renal function. Will continue to monitor for now, with plan to treat if hyperchloremia/acidosis persists or worsens Atelectasis/FVO/Pleural effusions 10/08/2013 04/30/2014 Overview: On RA. Wt 2.1 kg above pre-op. CXR: b/l atelectasis. Small effusions. Cont lasix for aggressive diuresis. Plan to continue home bronchodilators, Enc OOB, amb, C&DB, PEP. Mechanically assisted ventilation 10/07/2013 10/08/2013 Overview: 10/07/2013 Residual anesthesia still on board. Will WTE once fully awake and appropriate extubation criteria met, including adequate hemostasis. Acute blood loss anemia 10/07/2013 04/30/20 14 Overview: 10/07/2013 Intraop blood loss with last intraop Hgb of 10.4 Level is adequate for oxygen delivery. Presently minimal need for vasoactive hemodynamic support. Plan Monitor closely for additional bleeding or coagulopathy Fluid resuscitation as needed Consider blood products if acute decompensation or further bleeding, or with Hgb < 7. 10/09/13 - H/H stable, will continue to monitor Cardiac insufficiency following cardiac surgery 10/07/2013 10/09/2013 Overview: 10/07/2013 Immediately postop, needs low dose inotropic support with epinephrine as well as fluid resuscitation to ensure euvolemia (given her LVH and stage 2 diastolic dysfunction). Wean epi as tolerated. Avoid tachycardia 10/08/13 - wean Epi gtt, high fluid balance - begin lasix Stress hyperglycemia 10/07/2013 12/19/2016 Overview: No hx of DM. Will continue SSI to keep glucose < 160 in post-op period. Tapering steroids. Discharge Planning 10/06/2013 01/02/2014 Overview: Discharge today 10.14.2013. Lives in [facility] with . Scheduled appointment with [place] [facility] at 10:30 on [address] Kim at 11:30 on 10.16.2013. H/o Anxiety 10/06/2013 12/19/2016 Overview: Hx of anxiety. Takes ativan BID at home. Mood stable. Plan to continue as an inpatient and increase dose as needed ASA CLASS II 11/25/2002 11/06/2011 Aortic valve disorder 12/19/2016 Overview: Dr. Mckay documented as of this encounter (statuses as of 12/11/2022) [facility] of Past illness Narrative* Problem Noted Date Resolved Date Pseudopolyp of ascending colon without complicat ion 05/15/2017 08/31/2020 Microscopic hematuria 05/17/2016 08/31/2020 Angiomyolipoma 05/17/2016 08/31/2020 Overview: Unchanged on recent ct scan Hyperdense renal cyst 05/17/2016 12/07/2021 Overview: Unchanged on recent ct scan Acute right-sided low back pain with right-sided sciatica 03/23/2016 12/19/2016 H/o HTN 10/14/2013 07/06/2022 Overview: Currently normotensive. On BB, IV lasix- will change to po at discharge. Pneumoperitoneum 10/10/2013 04/30/2014 Overview: CXR: Pneumoperitoneum noted under right hemidaphragm. D/w CTS and Cards. Pt asymptomatic. No fevers or tachycardia. Denies any abdominal pain. 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 LVH with apparent volume responsiveness (hemodynamics seemed best with CVP approx 15 and PAD approx 20). DVT prophylaxis: Encourage increased activity, SHAWN hose. Pain following surgery or procedure 10/08/2013 10/14/2013 Overview: Pt w/multiple medication allergies. Reports adequate pain control on current regimen. Lidoderm patches discontinued and steroids are being tapered (started prophylactically for adhesive allergy). Will uptitrate regimen as needed. Hyperchloremic metabolic acidosis 10/08/2013 10/09/2013 Overview: 10/08/13 - slightly acidotic with elevated chloride. Anion pina = +14, delta-delta = -7. No hx or s/s of impaired renal function. Will continue to monitor for now, with plan to treat if hyperchloremia/acidosis persists or worsens Atelectasis/FVO/Pleural effusions 10/08/2013 04/30/2014 Overview: On RA. Wt 2.1 kg above pre-op. CXR: b/l atelectasis. Small effusions. Cont lasix for aggressive diuresis. Plan to continue home bronchodilators, Enc OOB, amb, C&DB, PEP. Mechanically assisted ventilation 10/07/2013 10/08/2013 Overview: 10/07/2013 Residual anesthesia still on board. Will WTE once fully awake and appropriate extubation criteria met, including adequate hemostasis. Acute blood loss anemia 10/07/2013 04/30/20 14 Overview: 10/07/2013 Intraop blood loss with last intraop Hgb of 10.4 Level is adequate for oxygen delivery. Presently minimal need for vasoactive hemodynamic support. Plan Monitor closely for additional bleeding or coagulopathy Fluid resuscitation as needed Consider blood products if acute decompensation or further bleeding, or with Hgb < 7. 10/09/13 - H/H stable, will continue to monitor Cardiac insufficiency following cardiac surgery 10/07/2013 10/09/2013 Overview: 10/07/2013 Immediately postop, needs low dose inotropic support with epinephrine as well as fluid resuscitation to ensure euvolemia (given her LVH and stage 2 diastolic dysfunction). Wean epi as tolerated. Avoid tachycardia 10/08/13 - wean Epi gtt, high fluid balance - begin lasix Stress hyperglycemia 10/07/2013 12/19/2016 Overview: No hx of DM. Will continue SSI to keep glucose < 160 in post-op period. Tapering steroids. Discharge Planning 10/06/2013 01/02/2014 Overview: Discharge today 10.14.2013. Lives in [facility] with . Scheduled appointment with [place] [facility] at 10:30 on [address] Kim at 11:30 on 10.16.2013. H/o Anxiety 10/06/2013 12/19/2016 Overview: Hx of anxiety. Takes ativan BID at home. Mood stable. Plan to continue as an inpatient and increase dose as needed ASA CLASS II 11/25/2002 11/06/2011 Aortic valve disorder 12/19/2016 Overview: Dr. Mckay documented as of this encounter (statuses as of 12/27/2022) [facility] of Past illness Narrative* Problem Noted Date Resolved Date Pseudopolyp of ascending colon without complicat ion 05/15/2017 08/31/2020 Microscopic hematuria 05/17/2016 08/31/2020 Angiomyolipoma 05/17/2016 08/31/2020 Overview: Unchanged on recent ct scan Hyperdense renal cyst 05/17/2016 12/07/2021 Overview: Unchanged on recent ct scan Acute right-sided low back pain with right-sided sciatica 03/23/2016 12/19/2016 H/o HTN 10/14/2013 07/06/2022 Overview: Currently normotensive. On BB, IV lasix- will change to po at discharge. Pneumoperitoneum 10/10/2013 04/30/2014 Overview: CXR: Pneumoperitoneum noted under right hemidaphragm. D/w CTS and Cards. Pt asymptomatic. No fevers or tachycardia. Denies any abdominal pain. 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 LVH with apparent volume responsiveness (hemodynamics seemed best with CVP approx 15 and PAD approx 20). DVT prophylaxis: Encourage increased activity, SHAWN hose. Pain following surgery or procedure 10/08/2013 10/14/2013 Overview: Pt w/multiple medication allergies. Reports adequate pain control on current regimen. Lidoderm patches discontinued and steroids are being tapered (started prophylactically for adhesive allergy). Will uptitrate regimen as needed. Hyperchloremic metabolic acidosis 10/08/2013 10/09/2013 Overview: 10/08/13 - slightly acidotic with elevated chloride. Anion pina = +14, delta-delta = -7. No hx or s/s of impaired renal function. Will continue to monitor for now, with plan to treat if hyperchloremia/acidosis persists or worsens Atelectasis/FVO/Pleural effusions 10/08/2013 04/30/2014 Overview: On RA. Wt 2.1 kg above pre-op. CXR: b/l atelectasis. Small effusions. Cont lasix for aggressive diuresis. Plan to continue home bronchodilators, Enc OOB, amb, C&DB, PEP. Mechanically assisted ventilation 10/07/2013 10/08/2013 Overview: 10/07/2013 Residual anesthesia still on board. Will WTE once fully awake and appropriate extubation criteria met, including adequate hemostasis. Acute blood loss anemia 10/07/2013 04/30/20 Overview: 10/07/2013 Intraop blood loss with last intraop Hgb of 10.4 Level is adequate for oxygen delivery. Presently minimal need for vasoactive hemodynamic support. Plan Monitor closely for additional bleeding or coagulopathy Fluid resuscitation as needed Consider blood products if acute decompensation or further bleeding, or with Hgb < 7. 10/09/13 - H/H stable, will continue to monitor Cardiac insufficiency following cardiac surgery 10/07/2013 10/09/2013 Overview: 10/07/2013 Immediately postop, needs low dose inotropic support with epinephrine as well as fluid resuscitation to ensure euvolemia (given her LVH and stage 2 diastolic dysfunction). Wean epi as tolerated. Avoid tachycardia 10/08/13 - wean Epi gtt, high fluid balance - begin lasix Stress hyperglycemia 10/07/2013 12/19/2016 Overview: No hx of DM. Will continue SSI to keep glucose < 160 in post-op period. Tapering steroids. Discharge Planning 10/06/2013 01/02/2014 Overview: Discharge today 10.14.2013. Lives in [facility] with . Scheduled appointment with [place] [facility] at 10:30 on 10.[address] Kim at 11:30 on 10.16.2013. H/o Anxiety 10/06/2013 12/19/2016 Overview: Hx of anxiety. Takes ativan BID at home. Mood stable. Plan to continue as an inpatient and increase dose as needed ASA CLASS II 11/25/2002 11/06/2011 Aortic valve disorder 12/19/2016 Overview: Dr. Mckay documented as of this encounter (statuses as of 12/27/2022) [facility] History of Past illness Narrative* Problem Noted Date Resolved Date Pseudopolyp of ascending colon without complicat ion 05/15/2017 08/31/2020 Microscopic hematuria 05/17/2016 08/31/2020 Angiomyolipoma 05/17/2016 08/31/2020 Overview: Unchanged on recent ct scan Hyperdense renal cyst 05/17/2016 12/07/2021 Overview: Unchanged on recent ct scan Acute right-sided low back pain with right-sided sciatica 03/23/2016 12/19/2016 H/o HTN 10/14/2013 07/06/2022 Overview: Currently normotensive. On BB, IV lasix- will change to po at discharge. Pneumoperitoneum 10/10/2013 04/30/2014 Overview: CXR: Pneumoperitoneum noted under right hemidaphragm. D/w CTS and Cards. Pt asymptomatic. No fevers or tachycardia. Denies any abdominal pain. 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 LVH with apparent volume responsiveness (hemodynamics seemed best with CVP approx 15 and PAD approx 20). DVT prophylaxis: Encourage increased activity, SHAWN hose. Pain following surgery or procedure 10/08/2013 10/14/2013 Overview: Pt w/multiple medication allergies. Reports adequate pain control on current regimen. Lidoderm patches discontinued and steroids are being tapered (started prophylactically for adhesive allergy). Will uptitrate regimen as needed. Hyperchloremic metabolic acidosis 10/08/2013 10/09/2013 Overview: 10/08/13 - slightly acidotic with elevated chloride. Anion pina = +14, delta-delta = -7. No hx or s/s of impaired renal function. Will continue to monitor for now, with plan to treat if hyperchloremia/acidosis persists or worsens Atelectasis/FVO/Pleural effusions 10/08/2013 04/30/2014 Overview: On RA. Wt 2.1 kg above pre-op. CXR: b/l atelectasis. Small effusions. Cont lasix for aggressive diuresis. Plan to continue home bronchodilators, Enc OOB, amb, C&DB, PEP. Mechanically assisted ventilation 10/07/2013 10/08/2013 Overview: 10/07/2013 Residual anesthesia still on board. Will WTE once fully awake and appropriate extubation criteria met, including adequate hemostasis. Acute blood loss anemia 10/07/2013 04/30/20 Overview: 10/07/2013 Intraop blood loss with last intraop Hgb of 10.4 Level is adequate for oxygen delivery. Presently minimal need for vasoactive hemodynamic support. Plan Monitor closely for additional bleeding or coagulopathy Fluid resuscitation as needed Consider blood products if acute decompensation or further bleeding, or with Hgb < 7. 10/09/13 - H/H stable, will continue to monitor Cardiac insufficiency following cardiac surgery 10/07/2013 10/09/2013 Overview: 10/07/2013 Immediately postop, needs low dose inotropic support with epinephrine as well as fluid resuscitation to ensure euvolemia (given her LVH and stage 2 diastolic dysfunction). Wean epi as tolerated. Avoid tachycardia 10/08/13 - wean Epi gtt, high fluid balance - begin lasix Stress hyperglycemia 10/07/2013 12/19/2016 Overview: No hx of DM. Will continue SSI to keep glucose < 160 in post-op period. Tapering steroids. Discharge Planning 10/06/2013 01/02/2014 Overview: Discharge today 10.14.2013. Lives in [facility] with . Scheduled appointment with [place] [facility] at 10:30 on [address] Kim at 11:30 on 10.16.2013. H/o Anxiety 10/06/2013 12/19/2016 Overview: Hx of anxiety. Takes ativan BID at home. Mood stable. Plan to continue as an inpatient and increase dose as needed ASA CLASS II 11/25/2002 11/06/2011 Aortic valve disorder 12/19/2016 Overview: Dr. Mckay documented as of this encounter (statuses as of 12/29/2022) [facility] History of Past illness Narrative* Problem Noted Date Resolved Date Pseudopolyp of ascending colon without complicat ion 05/15/2017 08/31/2020 Microscopic hematuria 05/17/2016 08/31/2020 Angiomyolipoma 05/17/2016 08/31/2020 Overview: Unchanged on recent ct scan Hyperdense renal cyst 05/17/2016 12/07/2021 Overview: Unchanged on recent ct scan Acute right-sided low back pain with right-sided sciatica 03/23/2016 12/19/2016 H/o HTN 10/14/2013 07/06/2022 Overview: Currently normotensive. On BB, IV lasix- will change to po at discharge. Pneumoperitoneum 10/10/2013 04/30/2014 Overview: CXR: Pneumoperitoneum noted under right hemidaphragm. D/w CTS and Cards. Pt asymptomatic. No fevers or tachycardia. Denies any abdominal pain. 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 LVH with apparent volume responsiveness (hemodynamics seemed best with CVP approx 15 and PAD approx 20). DVT prophylaxis: Encourage increased activity, SHAWN hose. Pain following surgery or procedure 10/08/2013 10/14/2013 Overview: Pt w/multiple medication allergies. Reports adequate pain control on current regimen. Lidoderm patches discontinued and steroids are being tapered (started prophylactically for adhesive allergy). Will uptitrate regimen as needed. Hyperchloremic metabolic acidosis 10/08/2013 10/09/2013 Overview: 10/08/13 - slightly acidotic with elevated chloride. Anion pina = +14, delta-delta = -7. No hx or s/s of impaired renal function. Will continue to monitor for now, with plan to treat if hyperchloremia/acidosis persists or worsens Atelectasis/FVO/Pleural effusions 10/08/2013 04/30/2014 Overview: On RA. Wt 2.1 kg above pre-op. CXR: b/l atelectasis. Small effusions. Cont lasix for aggressive diuresis. Plan to continue home bronchodilators, Enc OOB, amb, C&DB, PEP. Mechanically assisted ventilation 10/07/2013 10/08/2013 Overview: 10/07/2013 Residual anesthesia still on board. Will WTE once fully awake and appropriate extubation criteria met, including adequate hemostasis. Acute blood loss anemia 10/07/2013 04/30/20 14 Overview: 10/07/2013 Intraop blood loss with last intraop Hgb of 10.4 Level is adequate for oxygen delivery. Presently minimal need for vasoactive hemodynamic support. Plan Monitor closely for additional bleeding or coagulopathy Fluid resuscitation as needed Consider blood products if acute decompensation or further bleeding, or with Hgb < 7. /13/14 - H/H stable, will continue to monitor Cardiac insufficiency following cardiac surgery 10/07/2013 10/09/2013 Overview: 10/07/2013 Immediately postop, needs low dose inotropic support with epinephrine as well as fluid resuscitation to ensure euvolemia (given her LVH and stage 2 diastolic dysfunction). Wean epi as tolerated. Avoid tachycardia 10/08/13 - wean Epi gtt, high fluid balance - begin lasix Stress hyperglycemia 10/07/2013 12/19/2016 Overview: No hx of DM. Will continue SSI to keep glucose < 160 in post-op period. Tapering steroids. Discharge Planning 10/06/2013 01/02/2014 Overview: Discharge today 10.14.2013. Lives in [facility] with . Scheduled appointment with [place] [facility] at 10:30 on 10.[address] Kim at 11:30 on 10.16.2013. H/o Anxiety 10/06/2013 12/19/2016 Overview: Hx of anxiety. Takes ativan BID at home. Mood stable. Plan to continue as an inpatient and increase dose as needed ASA CLASS II 11/25/2002 11/06/2011 Aortic valve disorder 12/19/2016 Overview: Dr. Mckay documented as of this encounter (statuses as of 01/01/2023) [facility] History of Past illness Narrative* Problem Noted Date Resolved Date Pseudopolyp of ascending colon without complicat ion 05/15/2017 08/31/2020 Microscopic hematuria 05/17/2016 08/31/2020 Angiomyolipoma 05/17/2016 08/31/2020 Overview: Unchanged on recent ct scan Hyperdense renal cyst 05/17/2016 12/07/2021 Overview: Unchanged on recent ct scan Acute right-sided low back pain with right-sided sciatica 03/23/2016 12/19/2016 H/o HTN 10/14/2013 07/06/2022 Overview: Currently normotensive. On BB, IV lasix- will change to po at discharge. Pneumoperitoneum 10/10/2013 04/30/2014 Overview: CXR: Pneumoperitoneum noted under right hemidaphragm. D/w CTS and Cards. Pt asymptomatic. No fevers or tachycardia. Denies any abdominal pain. 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 LVH with apparent volume responsiveness (hemodynamics seemed best with CVP approx 15 and PAD approx 20). DVT prophylaxis: Encourage increased activity, SHAWN hose. Pain following surgery or procedure 10/08/2013 10/14/2013 Overview: Pt w/multiple medication allergies. Reports adequate pain control on current regimen. Lidoderm patches discontinued and steroids are being tapered (started prophylactically for adhesive allergy). Will uptitrate regimen as needed. Hyperchloremic metabolic acidosis 10/08/2013 10/09/2013 Overview: 10/08/13 - slightly acidotic with elevated chloride. Anion pina = +14, delta-delta = -7. No hx or s/s of impaired renal function. Will continue to monitor for now, with plan to treat if hyperchloremia/acidosis persists or worsens Atelectasis/FVO/Pleural effusions 10/08/2013 04/30/2014 Overview: On RA. Wt 2.1 kg above pre-op. CXR: b/l atelectasis. Small effusions. Cont lasix for aggressive diuresis. Plan to continue home bronchodilators, Enc OOB, amb, C&DB, PEP. Mechanically assisted ventilation 10/07/2013 10/08/2013 Overview: 10/07/2013 Residual anesthesia still on board. Will WTE once fully awake and appropriate extubation criteria met, including adequate hemostasis. Acute blood loss anemia 10/07/2013 04/30/20 Overview: 10/07/2013 Intraop blood loss with last intraop Hgb of 10.4 Level is adequate for oxygen delivery. Presently minimal need for vasoactive hemodynamic support. Plan Monitor closely for additional bleeding or coagulopathy Fluid resuscitation as needed Consider blood products if acute decompensation or further bleeding, or with Hgb < 7. 10/09/13 - H/H stable, will continue to monitor Cardiac insufficiency following cardiac surgery 10/07/2013 10/09/2013 Overview: 10/07/2013 Immediately postop, needs low dose inotropic support with epinephrine as well as fluid resuscitation to ensure euvolemia (given her LVH and stage 2 diastolic dysfunction). Wean epi as tolerated. Avoid tachycardia 10/08/13 - wean Epi gtt, high fluid balance - begin lasix Stress hyperglycemia 10/07/2013 12/19/2016 Overview: No hx of DM. Will continue SSI to keep glucose < 160 in post-op period. Tapering steroids. Discharge Planning 10/06/2013 01/02/2014 Overview: Discharge today 10.14.2013. Lives in [facility] with . Scheduled appointment with [place] [facility] at 10:30 on 10.[address] Kim at 11:30 on 10.16.2013. H/o Anxiety 10/06/2013 12/19/2016 Overview: Hx of anxiety. Takes ativan BID at home. Mood stable. Plan to continue as an inpatient and increase dose as needed ASA CLASS II 11/25/2002 11/06/2011 Aortic valve disorder 12/19/2016 Overview: Dr. Mckay documented as of this encounter (statuses as of 01/01/2023) [facility] History of Past illness Narrative* Problem Noted Date Resolved Date Pseudopolyp of ascending colon without complicat ion 05/15/2017 08/31/2020 Microscopic hematuria 05/17/2016 08/31/2020 Angiomyolipoma 05/17/2016 08/31/2020 Overview: Unchanged on recent ct scan Hyperdense renal cyst 05/17/2016 12/07/2021 Overview: Unchanged on recent ct scan Acute right-sided low back pain with right-sided sciatica 03/23/2016 12/19/2016 H/o HTN 10/14/2013 07/06/2022 Overview: Currently normotensive. On BB, IV lasix- will change to po at discharge. Pneumoperitoneum 10/10/2013 04/30/2014 Overview: CXR: Pneumoperitoneum noted under right hemidaphragm. D/w CTS and Cards. Pt asymptomatic. No fevers or tachycardia. Denies any abdominal pain. 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 LVH with apparent volume responsiveness (hemodynamics seemed best with CVP approx 15 and PAD approx 20). DVT prophylaxis: Encourage increased activity, SHAWN hose. Pain following surgery or procedure 10/08/2013 10/14/2013 Overview: Pt w/multiple medication allergies. Reports adequate pain control on current regimen. Lidoderm patches discontinued and steroids are being tapered (started prophylactically for adhesive allergy). Will uptitrate regimen as needed. Hyperchloremic metabolic acidosis 10/08/2013 10/09/2013 Overview: 10/08/13 - slightly acidotic with elevated chloride. Anion pina = +14, delta-delta = -7. No hx or s/s of impaired renal function. Will continue to monitor for now, with plan to treat if hyperchloremia/acidosis persists or worsens Atelectasis/FVO/Pleural effusions 10/08/2013 04/30/2014 Overview: On RA. Wt 2.1 kg above pre-op. CXR: b/l atelectasis. Small effusions. Cont lasix for aggressive diuresis. Plan to continue home bronchodilators, Enc OOB, amb, C&DB, PEP. Mechanically assisted ventilation 10/07/2013 10/08/2013 Overview: 10/07/2013 Residual anesthesia still on board. Will WTE once fully awake and appropriate extubation criteria met, including adequate hemostasis. Acute blood loss anemia 10/07/2013 04/30/20 Overview: 10/07/2013 Intraop blood loss with last intraop Hgb of 10.4 Level is adequate for oxygen delivery. Presently minimal need for vasoactive hemodynamic support. Plan Monitor closely for additional bleeding or coagulopathy Fluid resuscitation as needed Consider blood products if acute decompensation or further bleeding, or with Hgb < 7. 10/09/13 - H/H stable, will continue to monitor Cardiac insufficiency following cardiac surgery 10/07/2013 10/09/2013 Overview: 10/07/2013 Immediately postop, needs low dose inotropic support with epinephrine as well as fluid resuscitation to ensure euvolemia (given her LVH and stage 2 diastolic dysfunction). Wean epi as tolerated. Avoid tachycardia 10/08/13 - wean Epi gtt, high fluid balance - begin lasix Stress hyperglycemia 10/07/2013 12/19/2016 Overview: No hx of DM. Will continue SSI to keep glucose < 160 in post-op period. Tapering steroids. Discharge Planning 10/06/2013 01/02/2014 Overview: Discharge today 10.14.2013. Lives in [facility] with . Scheduled appointment with [place] [facility] at 10:30 on [address] Kim at 11:30 on 10.16.2013. H/o Anxiety 10/06/2013 12/19/2016 Overview: Hx of anxiety. Takes ativan BID at home. Mood stable. Plan to continue as an inpatient and increase dose as needed ASA CLASS II 11/25/2002 11/06/2011 Aortic valve disorder 12/19/2016 Overview: Dr. Mckay documented as of this encounter (statuses as of 01/24/2023) [facility] History of Past illness Narrative* Problem Noted Date Resolved Date Pseudopolyp of ascending colon without complicat ion 05/15/2017 08/31/2020 Microscopic hematuria 05/17/2016 08/31/2020 Angiomyolipoma 05/17/2016 08/31/2020 Overview: Unchanged on recent ct scan Hyperdense renal cyst 05/17/2016 12/07/2021 Overview: Unchanged on recent ct scan Acute right-sided low back pain with right-sided sciatica 03/23/2016 12/19/2016 H/o HTN 10/14/2013 07/06/2022 Overview: Currently normotensive. On BB, IV lasix- will change to po at discharge. Pneumoperitoneum 10/10/2013 04/30/2014 Overview: CXR: Pneumoperitoneum noted under right hemidaphragm. D/w CTS and Cards. Pt asymptomatic. No fevers or tachycardia. Denies any abdominal pain. 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 LVH with apparent volume responsiveness (hemodynamics seemed best with CVP approx 15 and PAD approx 20). DVT prophylaxis: Encourage increased activity, SHAWN hose. Pain following surgery or procedure 10/08/2013 10/14/2013 Overview: Pt w/multiple medication allergies. Reports adequate pain control on current regimen. Lidoderm patches discontinued and steroids are being tapered (started prophylactically for adhesive allergy). Will uptitrate regimen as needed. Hyperchloremic metabolic acidosis 10/08/2013 10/09/2013 Overview: 10/08/13 - slightly acidotic with elevated chloride. Anion pina = +14, delta-delta = -7. No hx or s/s of impaired renal function. Will continue to monitor for now, with plan to treat if hyperchloremia/acidosis persists or worsens Atelectasis/FVO/Pleural effusions 10/08/2013 04/30/2014 Overview: On RA. Wt 2.1 kg above pre-op. CXR: b/l atelectasis. Small effusions. Cont lasix for aggressive diuresis. Plan to continue home bronchodilators, Enc OOB, amb, C&DB, PEP. Mechanically assisted ventilation 10/07/2013 10/08/2013 Overview: 10/07/2013 Residual anesthesia still on board. Will WTE once fully awake and appropriate extubation criteria met, including adequate hemostasis. Acute blood loss anemia 10/07/2013 04/30/20 Overview: 10/07/2013 Intraop blood loss with last intraop Hgb of 10.4 Level is adequate for oxygen delivery. Presently minimal need for vasoactive hemodynamic support. Plan Monitor closely for additional bleeding or coagulopathy Fluid resuscitation as needed Consider blood products if acute decompensation or further bleeding, or with Hgb < 7. 10/09/13 - H/H stable, will continue to monitor Cardiac insufficiency following cardiac surgery 10/07/2013 10/09/2013 Overview: 10/07/2013 Immediately postop, needs low dose inotropic support with epinephrine as well as fluid resuscitation to ensure euvolemia (given her LVH and stage 2 diastolic dysfunction). Wean epi as tolerated. Avoid tachycardia 10/08/13 - wean Epi gtt, high fluid balance - begin lasix Stress hyperglycemia 10/07/2013 12/19/2016 Overview: No hx of DM. Will continue SSI to keep glucose < 160 in post-op period. Tapering steroids. Discharge Planning 10/06/2013 01/02/2014 Overview: Discharge today 10.14.2013. Lives in [facility] with . Scheduled appointment with [place] [facility] at 10:30 on [address] Kim at 11:30 on 10.16.2013. H/o Anxiety 10/06/2013 12/19/2016 Overview: Hx of anxiety. Takes ativan BID at home. Mood stable. Plan to continue as an inpatient and increase dose as needed ASA CLASS II 11/25/2002 11/06/2011 Aortic valve disorder 12/19/2016 Overview: Dr. Mckay documented as of this encounter (statuses as of 01/24/2023) [facility] History of Past illness Narrative* Problem Noted Date Diagnosed Date Resolved Date Pseudopolyp of ascending col on without complication 05/15/2017 08/31/2020 Microscopic hematuria 05/17/20162020 Angiomyolipoma 05/17/2016 08/31/2020 Overview: Unchanged on recent ct scan Hyperdense renal cyst 05/17/20162021 Overview: Unchanged on recent ct scan Acute right-sided low back p ain with right-sided sciatica 03/23/2016 12/19/2016 H/o HTN 10/14/2013 07/06/2022 Overview: Currently normotensive. On BB, IV lasix- will change to po at discharge. Pneumoperitoneum 10/10/2013 04/30/2014 Overview: CXR: Pneumoperitoneum noted under right hemidaphragm. D/w CTS and Cards. Pt asymptomatic. No fevers or tachycardia. Denies any abdominal pain. Improving Diaphragmatic eventration 10/10/2013 SUMMARY 10/10/2013 06/16/2016 Overview: Indication for procedure: AI and , progressive SOB LVEF: 52% RVF: Normal Pacing wires: No Cath: nml Surgeries: 10/08/2013 Redo sternotomy: AVR (#21 [place] mechanical valve) PMHx: HTN, HPL, Asthma, GERD, Anxiety, Depression, hypothyroidism OR Course: Uncomplicated Unit Course: Mod. LVH with apparent volume responsiveness (hemodynamics seemed best with CVP approx 15 and PAD approx 20). DVT prophylaxis: Encourage increased activity, SHAWN hose. Pain following surgery or procedure 10/08/2013 10/14/2013 Overview: Pt w/multiple medication allergies. Reports adequate pain control on current regimen. Lidoderm patches discontinued and steroids are being tapered (started prophylactically for adhesive allergy). Will uptitrate regimen as needed. Hyperchloremic metabolic acidosis 10/08/2013 10/09/2013 Overview: 10/08/13 - slightly acidotic with elevated chloride. Anion pina = +14, delta-delta = -7. No hx or s/s of impaired renal function. Will continue to monitor for now, with plan to treat if hyperchloremia/acidosis persists or worsens Atelectasis/FVO/Pleural effusions 10/08/2013 04/30/2014 Overview: On RA. Wt 2.1 kg above pre-op. CXR: b/l atelectasis. Small effusions. Cont lasix for aggressive diuresis. Plan to continue home bronchodilators, Enc OOB, amb, C&DB, PEP. Mechanically assisted ventilation 10/07/2013 10/08/2013 Overview: 10/07/2013 Residual anesthesia still on board. Will WTE once fully awake and appropriate extubation criteria met, including adequate hemostasis. Acute blood loss anemia 10/07/2013 10/0 08/2013 Overview: 10/07/2013 Intraop blood loss with last intraop Hgb of 10.4 Level is adequate for oxygen delivery. Presently minimal need for vasoactive hemodynamic support. Plan Monitor closely for additional bleeding or coagulopathy Fluid resuscitation as needed Consider blood products if acute decompensation or further bleeding, or with Hgb < 7. 10/09/13 - H/H stable, will continue to monitor Cardiac insufficiency follow ing cardiac surgery 10/07/2013 10/09/2013 Overview: 10/07/2013 Immediately postop, needs low dose inotropic support with epinephrine as well as fluid resuscitation to ensure euvolemia (given her LVH and stage 2 diastolic dysfunction). Wean epi as tolerated. Avoid tachycardia 10/08/13 - wean Epi gtt, high fluid balance - begin lasix Stress hyperglycemia 10/07/2013 017 Overview: No hx of DM. Will continue SSI to keep glucose < 160 in post-op period. Tapering steroids. Discharge Planning 10/06/2013 4 Overview: Discharge today 10.14.2013. Lives in [facility] with . Scheduled appointment with [place] [facility] at 10:30 on 10.[address] Kim at 11:30 on 10.16.2013. H/o Anxiety 10/06/2013 12/19/2016 Overview: Hx of anxiety. Takes ativan BID at home. Mood stable. Plan to continue as an inpatient and increase dose as needed ASA CLASS II 11/25/2002 11/06/2011 Aortic valve disorder 2016 Overview: Dr. Mckay documented as of this encounter (statuses as of 02/05/2023) [facility] History of Past illness Narrative* Problem Noted Date Diagnosed Date Resolved Date Pseudopolyp of ascending col on without complication 05/15/2017 08/31/2020 Microscopic hematuria 05/17/20162020 Angiomyolipoma 05/17/2016 08/31/2020 Overview: Unchanged on recent ct scan Hyperdense renal cyst 05/17/20162021 Overview: Unchanged on recent ct scan Acute right-sided low back p ain with right-sided sciatica 03/23/2016 12/19/2016 H/o HTN 10/14/2013 07/06/2022 Overview: Currently normotensive. On BB, IV lasix- will change to po at discharge. Pneumoperitoneum 10/10/2013 04/30/2014 Overview: CXR: Pneumoperitoneum noted under right hemidaphragm. D/w CTS and Cards. Pt asymptomatic. No fevers or tachycardia. Denies any abdominal pain. Improving Diaphragmatic eventration 10/10/2013 SUMMARY 10/10/2013 06/16/2016 Overview: Indication for procedure: AI and , progressive SOB LVEF: 52% RVF: Normal Pacing wires: No Cath: nml Surgeries: 10/08/2013 Redo sternotomy: AVR (#21 Sunset mechanical valve) PMHx: HTN, HPL, Asthma, GERD, Anxiety, Depression, hypothyroidism OR Course: Uncomplicated Unit Course: Mod. LVH with apparent volume responsiveness (hemodynamics seemed best with CVP approx 15 and PAD approx 20). DVT prophylaxis: Encourage increased activity, SHAWN hose. Pain following surgery or procedure 10/08/2013 10/14/2013 Overview: Pt w/multiple medication allergies. Reports adequate pain control on current regimen. Lidoderm patches discontinued and steroids are being tapered (started prophylactically for adhesive allergy). Will uptitrate regimen as needed. Hyperchloremic metabolic acidosis 10/08/2013 10/09/2013 Overview: 10/08/13 - slightly acidotic with elevated chloride. Anion pina = +14, delta-delta = -7. No hx or s/s of impaired renal function. Will continue to monitor for now, with plan to treat if hyperchloremia/acidosis persists or worsens Atelectasis/FVO/Pleural effusions 10/08/2013 04/30/2014 Overview: On RA. Wt 2.1 kg above pre-op. CXR: b/l atelectasis. Small effusions. Cont lasix for aggressive diuresis. Plan to continue home bronchodilators, Enc OOB, amb, C&DB, PEP. Mechanically assisted ventilation 10/07/2013 10/08/2013 Overview: 10/07/2013 Residual anesthesia still on board. Will WTE once fully awake and appropriate extubation criteria met, including adequate hemostasis. Acute blood loss anemia 10/07/2013 10/0 08/2013 Overview: 10/07/2013 Intraop blood loss with last intraop Hgb of 10.4 Level is adequate for oxygen delivery. Presently minimal need for vasoactive hemodynamic support. Plan Monitor closely for additional bleeding or coagulopathy Fluid resuscitation as needed Consider blood products if acute decompensation or further bleeding, or with Hgb < 7. 10/09/13 - H/H stable, will continue to monitor Cardiac insufficiency follow ing cardiac surgery 10/07/2013 10/09/2013 Overview: 10/07/2013 Immediately postop, needs low dose inotropic support with epinephrine as well as fluid resuscitation to ensure euvolemia (given her LVH and stage 2 diastolic dysfunction). Wean epi as tolerated. Avoid tachycardia 10/08/13 - wean Epi gtt, high fluid balance - begin lasix Stress hyperglycemia 10/07/2013 017 Overview: No hx of DM. Will continue SSI to keep glucose < 160 in post-op period. Tapering steroids. Discharge Planning 10/06/2013 06/06/201 4 Overview: Discharge today 10.14.2013. Lives in [facility] with . Scheduled appointment with [place] [facility] at 10:30 on 10[address] Kim at 11:30 on 10.16.2013. H/o Anxiety 10/06/2013 12/19/2016 Overview: Hx of anxiety. Takes ativan BID at home. Mood stable. Plan to continue as an inpatient and increase dose as needed ASA CLASS II 11/25/2002 11/06/2011 Aortic valve disorder 2016 Overview: Dr. Mckay documented as of this encounter (statuses as of 02/07/2023) [facility] History of Past illness Narrative* Problem Noted Date Diagnosed Date Resolved Date Pseudopolyp of ascending col on without complication 05/15/2017 08/31/2020 Microscopic hematuria 05/17/20162020 Angiomyolipoma 05/17/2016 08/31/2020 Overview: Unchanged on recent ct scan Hyperdense renal cyst 05/17/20162021 Overview: Unchanged on recent ct scan Acute right-sided low back p ain with right-sided sciatica 03/23/2016 12/19/2016 H/o HTN 10/14/2013 07/06/2022 Overview: Currently normotensive. On BB, IV lasix- will change to po at discharge. Pneumoperitoneum 10/10/2013 04/30/2014 Overview: CXR: Pneumoperitoneum noted under right hemidaphragm. D/w CTS and Cards. Pt asymptomatic. No fevers or tachycardia. Denies any abdominal pain. Improving Diaphragmatic eventration 10/10/2013 SUMMARY 10/10/2013 06/16/2016 Overview: Indication for procedure: AI and , progressive SOB LVEF: 52% RVF: Normal Pacing wires: No Cath: nml Surgeries: 10/08/2013 Redo sternotomy: AVR (#21 Sunset mechanical valve) PMHx: HTN, HPL, Asthma, GERD, Anxiety, Depression, hypothyroidism OR Course: Uncomplicated Unit Course: Mod. LVH with apparent volume responsiveness (hemodynamics seemed best with CVP approx 15 and PAD approx 20). DVT prophylaxis: Encourage increased activity, SHAWN hose. Pain following surgery or procedure 10/08/2013 10/14/2013 Overview: Pt w/multiple medication allergies. Reports adequate pain control on current regimen. Lidoderm patches discontinued and steroids are being tapered (started prophylactically for adhesive allergy). Will uptitrate regimen as needed. Hyperchloremic metabolic acidosis 10/08/2013 10/09/2013 Overview: 10/08/13 - slightly acidotic with elevated chloride. Anion pina = +14, delta-delta = -7. No hx or s/s of impaired renal function. Will continue to monitor for now, with plan to treat if hyperchloremia/acidosis persists or worsens Atelectasis/FVO/Pleural effusions 10/08/2013 04/30/2014 Overview: On RA. Wt 2.1 kg above pre-op. CXR: b/l atelectasis. Small effusions. Cont lasix for aggressive diuresis. Plan to continue home bronchodilators, Enc OOB, amb, C&DB, PEP. Mechanically assisted ventilation 10/07/2013 10/08/2013 Overview: 10/07/2013 Residual anesthesia still on board. Will WTE once fully awake and appropriate extubation criteria met, including adequate hemostasis. Acute blood loss anemia 10/07/2013 100 08/2013 Overview: 10/07/2013 Intraop blood loss with last intraop Hgb of 10.4 Level is adequate for oxygen delivery. Presently minimal need for vasoactive hemodynamic support. Plan Monitor closely for additional bleeding or coagulopathy Fluid resuscitation as needed Consider blood products if acute decompensation or further bleeding, or with Hgb < 7. 10/09/13 - H/H stable, will continue to monitor Cardiac insufficiency follow ing cardiac surgery 10/07/2013 10/09/2013 Overview: 10/07/2013 Immediately postop, needs low dose inotropic support with epinephrine as well as fluid resuscitation to ensure euvolemia (given her LVH and stage 2 diastolic dysfunction). Wean epi as tolerated. Avoid tachycardia 10/08/13 - wean Epi gtt, high fluid balance - begin lasix Stress hyperglycemia 10/07/2013 05/2 017 Overview: No hx of DM. Will continue SSI to keep glucose < 160 in post-op period. Tapering steroids. Discharge Planning 10/06/2013 06//201 4 Overview: Discharge today 10.14.2013. Lives in [facility] with . Scheduled appointment with [place] [facility] at 10:30 on 10.[address] Kim at 11:30 on 10.16.2013. H/o Anxiety 10/06/2013 12/19/2016 Overview: Hx of anxiety. Takes ativan BID at home. Mood stable. Plan to continue as an inpatient and increase dose as needed ASA CLASS II 11/25/2002 11/06/2011 Aortic valve disorder 2016 Overview: Dr. Mckay documented as of this encounter (statuses as of 02/09/2023) [facility] History of Past illness Narrative* Problem Noted Date Diagnosed Date Resolved Date Pseudopolyp of ascending col on without complication 05/15/2017 08/31/2020 Microscopic hematuria 05/17/20162020 Angiomyolipoma 05/17/2016 08/31/2020 Overview: Unchanged on recent ct scan Hyperdense renal cyst 05/17/20162021 Overview: Unchanged on recent ct scan Acute right-sided low back p ain with right-sided sciatica 03/23/2016 12/19/2016 H/o HTN 10/14/2013 07/06/2022 Overview: Currently normotensive. On BB, IV lasix- will change to po at discharge. Pneumoperitoneum 10/10/2013 04/30/2014 Overview: CXR: Pneumoperitoneum noted under right hemidaphragm. D/w CTS and Cards. Pt asymptomatic. No fevers or tachycardia. Denies any abdominal pain. Improving Diaphragmatic eventration 10/10/2013 SUMMARY 10/10/2013 06/16/2016 Overview: Indication for procedure: AI and , progressive SOB LVEF: 52% RVF: Normal Pacing wires: No Cath: nml Surgeries: 10/08/2013 Redo sternotomy: AVR (#21 Galo mechanical valve) PMHx: HTN, HPL, Asthma, GERD, Anxiety, Depression, hypothyroidism OR Course: Uncomplicated Unit Course: Mod. LVH with apparent volume responsiveness (hemodynamics seemed best with CVP approx 15 and PAD approx 20). DVT prophylaxis: Encourage increased activity, SHAWN hose. Pain following surgery or procedure 10/08/2013 10/14/2013 Overview: Pt w/multiple medication allergies. Reports adequate pain control on current regimen. Lidoderm patches discontinued and steroids are being tapered (started prophylactically for adhesive allergy). Will uptitrate regimen as needed. Hyperchloremic metabolic acidosis 10/08/2013 10/09/2013 Overview: 10/08/13 - slightly acidotic with elevated chloride. Anion pina = +14, delta-delta = -7. No hx or s/s of impaired renal function. Will continue to monitor for now, with plan to treat if hyperchloremia/acidosis persists or worsens Atelectasis/FVO/Pleural effusions 10/08/2013 04/30/2014 Overview: On RA. Wt 2.1 kg above pre-op. CXR: b/l atelectasis. Small effusions. Cont lasix for aggressive diuresis. Plan to continue home bronchodilators, Enc OOB, amb, C&DB, PEP. Mechanically assisted ventilation 10/07/2013 10/08/2013 Overview: 10/07/2013 Residual anesthesia still on board. Will WTE once fully awake and appropriate extubation criteria met, including adequate hemostasis. Acute blood loss anemia 10/07/2013 1008/2013 Overview: 10/07/2013 Intraop blood loss with last intraop Hgb of 10.4 Level is adequate for oxygen delivery. Presently minimal need for vasoactive hemodynamic support. Plan Monitor closely for additional bleeding or coagulopathy Fluid resuscitation as needed Consider blood products if acute decompensation or further bleeding, or with Hgb < 7. 10/09/13 - H/H stable, will continue to monitor Cardiac insufficiency follow ing cardiac surgery 10/07/2013 10/09/2013 Overview: 10/07/2013 Immediately postop, needs low dose inotropic support with epinephrine as well as fluid resuscitation to ensure euvolemia (given her LVH and stage 2 diastolic dysfunction). Wean epi as tolerated. Avoid tachycardia 10/08/13 - wean Epi gtt, high fluid balance - begin lasix Stress hyperglycemia 10/07/2013 017 Overview: No hx of DM. Will continue SSI to keep glucose < 160 in post-op period. Tapering steroids. Discharge Planning 10/06/2013 4 Overview: Discharge today 10.14.2013. Lives in [facility] with . Scheduled appointment with [place] [facility] at 10:30 on 10.[address] Kim at 11:30 on 10.16.2013. H/o Anxiety 10/06/2013 12/19/2016 Overview: Hx of anxiety. Takes ativan BID at home. Mood stable. Plan to continue as an inpatient and increase dose as needed ASA CLASS II 11/25/2002 11/06/2011 Aortic valve disorder 2016 Overview: Dr. Mckay documented as of this encounter (statuses as of 02/27/2023) [facility] History of Past illness Narrative* Problem Noted Date Diagnosed Date Resolved Date Pseudopolyp of ascending col on without complication 05/15/2017 08/31/2020 Microscopic hematuria 05/17/20162020 Angiomyolipoma 05/17/2016 08/31/2020 Overview: Unchanged on recent ct scan Hyperdense renal cyst 05/17/20162021 Overview: Unchanged on recent ct scan Acute right-sided low back p ain with right-sided sciatica 03/23/2016 12/19/2016 H/o HTN 10/14/2013 07/06/2022 Overview: Currently normotensive. On BB, IV lasix- will change to po at discharge. Pneumoperitoneum 10/10/2013 04/30/2014 Overview: CXR: Pneumoperitoneum noted under right hemidaphragm. D/w CTS and Cards. Pt asymptomatic. No fevers or tachycardia. Denies any abdominal pain. Improving Diaphragmatic eventration 10/10/2013 SUMMARY 10/10/2013 06/16/2016 Overview: Indication for procedure: AI and , progressive SOB LVEF: 52% RVF: Normal Pacing wires: No Cath: nml Surgeries: 10/08/2013 Redo sternotomy: AVR (#21 Sunset mechanical valve) PMHx: HTN, HPL, Asthma, GERD, Anxiety, Depression, hypothyroidism OR Course: Uncomplicated Unit Course: Mod. LVH with apparent volume responsiveness (hemodynamics seemed best with CVP approx 15 and PAD approx 20). DVT prophylaxis: Encourage increased activity, SHAWN hose. Pain following surgery or procedure 10/08/2013 10/14/2013 Overview: Pt w/multiple medication allergies. Reports adequate pain control on current regimen. Lidoderm patches discontinued and steroids are being tapered (started prophylactically for adhesive allergy). Will uptitrate regimen as needed. Hyperchloremic metabolic acidosis 10/08/2013 10/09/2013 Overview: 10/08/13 - slightly acidotic with elevated chloride. Anion pina = +14, delta-delta = -7. No hx or s/s of impaired renal function. Will continue to monitor for now, with plan to treat if hyperchloremia/acidosis persists or worsens Atelectasis/FVO/Pleural effusions 10/08/2013 04/30/2014 Overview: On RA. Wt 2.1 kg above pre-op. CXR: b/l atelectasis. Small effusions. Cont lasix for aggressive diuresis. Plan to continue home bronchodilators, Enc OOB, amb, C&DB, PEP. Mechanically assisted ventilation 10/07/2013 10/08/2013 Overview: 10/07/2013 Residual anesthesia still on board. Will WTE once fully awake and appropriate extubation criteria met, including adequate hemostasis. Acute blood loss anemia 10/07/2013 10/0 08/2013 Overview: 10/07/2013 Intraop blood loss with last intraop Hgb of 10.4 Level is adequate for oxygen delivery. Presently minimal need for vasoactive hemodynamic support. Plan Monitor closely for additional bleeding or coagulopathy Fluid resuscitation as needed Consider blood products if acute decompensation or further bleeding, or with Hgb < 7. 10/09/13 - H/H stable, will continue to monitor Cardiac insufficiency follow ing cardiac surgery 10/07/2013 10/09/2013 Overview: 10/07/2013 Immediately postop, needs low dose inotropic support with epinephrine as well as fluid resuscitation to ensure euvolemia (given her LVH and stage 2 diastolic dysfunction). Wean epi as tolerated. Avoid tachycardia 10/08/13 - wean Epi gtt, high fluid balance - begin lasix Stress hyperglycemia 10/07/2013 017 Overview: No hx of DM. Will continue SSI to keep glucose < 160 in post-op period. Tapering steroids. Discharge Planning 10/06/2013 4 Overview: Discharge today 10.14.2013. Lives in [facility] with . Scheduled appointment with [place] [facility] at 10:30 on 10.[address] Kim at 11:30 on 10.16.2013. H/o Anxiety 10/06/2013 12/19/2016 Overview: Hx of anxiety. Takes ativan BID at home. Mood stable. Plan to continue as an inpatient and increase dose as needed ASA CLASS II 11/25/2002 11/06/2011 Aortic valve disorder 2016 Overview: Dr. Mckay documented as of this encounter (statuses as of 03/08/2023) [facility] History of Past illness Narrative* Problem Noted Date Diagnosed Date Resolved Date Pseudopolyp of ascending col on without complication 05/15/2017 08/31/2020 Microscopic hematuria 05/17/20162020 Angiomyolipoma 05/17/2016 08/31/2020 Overview: Unchanged on recent ct scan Hyperdense renal cyst 05/17/20162021 Overview: Unchanged on recent ct scan Acute right-sided low back p ain with right-sided sciatica 03/23/2016 12/19/2016 H/o HTN 10/14/2013 07/06/2022 Overview: Currently normotensive. On BB, IV lasix- will change to po at discharge. Pneumoperitoneum 10/10/2013 04/30/2014 Overview: CXR: Pneumoperitoneum noted under right hemidaphragm. D/w CTS and Cards. Pt asymptomatic. No fevers or tachycardia. Denies any abdominal pain. Improving Diaphragmatic eventration 10/10/2013 SUMMARY 10/10/2013 06/16/2016 Overview: Indication for procedure: AI and , progressive SOB LVEF: 52% RVF: Normal Pacing wires: No Cath: nml Surgeries: 10/08/2013 Redo sternotomy: AVR (#21 Sunset mechanical valve) PMHx: HTN, HPL, Asthma, GERD, Anxiety, Depression, hypothyroidism OR Course: Uncomplicated Unit Course: Mod. LVH with apparent volume responsiveness (hemodynamics seemed best with CVP approx 15 and PAD approx 20). DVT prophylaxis: Encourage increased activity, SHAWN hose. Pain following surgery or procedure 10/08/2013 10/14/2013 Overview: Pt w/multiple medication allergies. Reports adequate pain control on current regimen. Lidoderm patches discontinued and steroids are being tapered (started prophylactically for adhesive allergy). Will uptitrate regimen as needed. Hyperchloremic metabolic acidosis 10/08/2013 10/09/2013 Overview: 10/08/13 - slightly acidotic with elevated chloride. Anion pina = +14, delta-delta = -7. No hx or s/s of impaired renal function. Will continue to monitor for now, with plan to treat if hyperchloremia/acidosis persists or worsens Atelectasis/FVO/Pleural effusions 10/08/2013 04/30/2014 Overview: On RA. Wt 2.1 kg above pre-op. CXR: b/l atelectasis. Small effusions. Cont lasix for aggressive diuresis. Plan to continue home bronchodilators, Enc OOB, amb, C&DB, PEP. Mechanically assisted ventilation 10/07/2013 10/08/2013 Overview: 10/07/2013 Residual anesthesia still on board. Will WTE once fully awake and appropriate extubation criteria met, including adequate hemostasis. Acute blood loss anemia 10/07/201308/2013 Overview: 10/07/2013 Intraop blood loss with last intraop Hgb of 10.4 Level is adequate for oxygen delivery. Presently minimal need for vasoactive hemodynamic support. Plan Monitor closely for additional bleeding or coagulopathy Fluid resuscitation as needed Consider blood products if acute decompensation or further bleeding, or with Hgb < 7. 10/09/13 - H/H stable, will continue to monitor Cardiac insufficiency follow ing cardiac surgery 10/07/2013 10/09/2013 Overview: 10/07/2013 Immediately postop, needs low dose inotropic support with epinephrine as well as fluid resuscitation to ensure euvolemia (given her LVH and stage 2 diastolic dysfunction). Wean epi as tolerated. Avoid tachycardia 10/08/13 - wean Epi gtt, high fluid balance - begin lasix Stress hyperglycemia 10/07/2013 017 Overview: No hx of DM. Will continue SSI to keep glucose < 160 in post-op period. Tapering steroids. Discharge Planning 10/06/2013 06// 4 Overview: Discharge today 10.14.2013. Lives in [facility] with . Scheduled appointment with [place] [facility] at 10:30 on [address] Kim at 11:30 on 10.16.2013. H/o Anxiety 10/06/2013 12/19/2016 Overview: Hx of anxiety. Takes ativan BID at home. Mood stable. Plan to continue as an inpatient and increase dose as needed ASA CLASS II 11/25/2002 11/06/2011 Aortic valve disorder 2016 Overview: Dr. Mckay documented as of this encounter (statuses as of 03/09/2023) [facility] of Past illness Narrative* Problem Noted Date Diagnosed Date Resolved Date Pseudopolyp of ascending col on without complication 05/15/2017 08/31/2020 Microscopic hematuria 05/17/20162020 Angiomyolipoma 05/17/2016 08/31/2020 Overview: Unchanged on recent ct scan Hyperdense renal cyst 05/17/20162021 Overview: Unchanged on recent ct scan Acute right-sided low back p ain with right-sided sciatica 03/23/2016 12/19/2016 H/o HTN 10/14/2013 07/06/2022 Overview: Currently normotensive. On BB, IV lasix- will change to po at discharge. Pneumoperitoneum 10/10/2013 04/30/2014 Overview: CXR: Pneumoperitoneum noted under right hemidaphragm. D/w CTS and Cards. Pt asymptomatic. No fevers or tachycardia. Denies any abdominal pain. Improving Diaphragmatic eventration 10/10/2013 SUMMARY 10/10/2013 06/16/2016 Overview: Indication for procedure: AI and , progressive SOB LVEF: 52% RVF: Normal Pacing wires: No Cath: nml Surgeries: 10/08/2013 Redo sternotomy: AVR (#21 Galo mechanical valve) PMHx: HTN, HPL, Asthma, GERD, Anxiety, Depression, hypothyroidism OR Course: Uncomplicated Unit Course: Mod. LVH with apparent volume responsiveness (hemodynamics seemed best with CVP approx 15 and PAD approx 20). DVT prophylaxis: Encourage increased activity, SHAWN hose. Pain following surgery or procedure 10/08/2013 10/14/2013 Overview: Pt w/multiple medication allergies. Reports adequate pain control on current regimen. Lidoderm patches discontinued and steroids are being tapered (started prophylactically for adhesive allergy). Will uptitrate regimen as needed. Hyperchloremic metabolic acidosis 10/08/2013 10/09/2013 Overview: 10/08/13 - slightly acidotic with elevated chloride. Anion pina = +14, delta-delta = -7. No hx or s/s of impaired renal function. Will continue to monitor for now, with plan to treat if hyperchloremia/acidosis persists or worsens Atelectasis/FVO/Pleural effusions 10/08/2013 04/30/2014 Overview: On RA. Wt 2.1 kg above pre-op. CXR: b/l atelectasis. Small effusions. Cont lasix for aggressive diuresis. Plan to continue home bronchodilators, Enc OOB, amb, C&DB, PEP. Mechanically assisted ventilation 10/07/2013 10/08/2013 Overview: 10/07/2013 Residual anesthesia still on board. Will WTE once fully awake and appropriate extubation criteria met, including adequate hemostasis. Acute blood loss anemia 10/07/201308/2013 Overview: 10/07/2013 Intraop blood loss with last intraop Hgb of 10.4 Level is adequate for oxygen delivery. Presently minimal need for vasoactive hemodynamic support. Plan Monitor closely for additional bleeding or coagulopathy Fluid resuscitation as needed Consider blood products if acute decompensation or further bleeding, or with Hgb < 7. 10/09/13 - H/H stable, will continue to monitor Cardiac insufficiency follow ing cardiac surgery 10/07/2013 10/09/2013 Overview: 10/07/2013 Immediately postop, needs low dose inotropic support with epinephrine as well as fluid resuscitation to ensure euvolemia (given her LVH and stage 2 diastolic dysfunction). Wean epi as tolerated. Avoid tachycardia 10/08/13 - wean Epi gtt, high fluid balance - begin lasix Stress hyperglycemia 10/07/2013 017 Overview: No hx of DM. Will continue SSI to keep glucose < 160 in post-op period. Tapering steroids. Discharge Planning 10/06/2013 4 Overview: Discharge today 10.14.2013. Lives in [facility] with . Scheduled appointment with [place] [facility] at 10:30 on 10.[address] Kim at 11:30 on 10.16.2013. H/o Anxiety 10/06/2013 12/19/2016 Overview: Hx of anxiety. Takes ativan BID at home. Mood stable. Plan to continue as an inpatient and increase dose as needed ASA CLASS II 11/25/2002 11/06/2011 Aortic valve disorder 2016 Overview: Dr. Mckay documented as of this encounter (statuses as of 03/13/2023) [facility] History of Past illness Narrative* Problem Noted Date Diagnosed Date Resolved Date Pseudopolyp of ascending col on without complication 05/15/2017 08/31/2020 Microscopic hematuria 05/17/20162020 Angiomyolipoma 05/17/2016 08/31/2020 Overview: Unchanged on recent ct scan Hyperdense renal cyst 05/17/20162021 Overview: Unchanged on recent ct scan Acute right-sided low back p ain with right-sided sciatica 03/23/2016 12/19/2016 H/o HTN 10/14/2013 07/06/2022 Overview: Currently normotensive. On BB, IV lasix- will change to po at discharge. Pneumoperitoneum 10/10/2013 04/30/2014 Overview: CXR: Pneumoperitoneum noted under right hemidaphragm. D/w CTS and Cards. Pt asymptomatic. No fevers or tachycardia. Denies any abdominal pain. Improving Diaphragmatic eventration 10/10/2013 SUMMARY 10/10/2013 06/16/2016 Overview: Indication for procedure: AI and , progressive SOB LVEF: 52% RVF: Normal Pacing wires: No Cath: nml Surgeries: 10/08/2013 Redo sternotomy: AVR (#21 Sunset mechanical valve) PMHx: HTN, HPL, Asthma, GERD, Anxiety, Depression, hypothyroidism OR Course: Uncomplicated Unit Course: Mod. LVH with apparent volume responsiveness (hemodynamics seemed best with CVP approx 15 and PAD approx 20). DVT prophylaxis: Encourage increased activity, SHAWN hose. Pain following surgery or procedure 10/08/2013 10/14/2013 Overview: Pt w/multiple medication allergies. Reports adequate pain control on current regimen. Lidoderm patches discontinued and steroids are being tapered (started prophylactically for adhesive allergy). Will uptitrate regimen as needed. Hyperchloremic metabolic acidosis 10/08/2013 10/09/2013 Overview: 10/08/13 - slightly acidotic with elevated chloride. Anion pina = +14, delta-delta = -7. No hx or s/s of impaired renal function. Will continue to monitor for now, with plan to treat if hyperchloremia/acidosis persists or worsens Atelectasis/FVO/Pleural effusions 10/08/2013 04/30/2014 Overview: On RA. Wt 2.1 kg above pre-op. CXR: b/l atelectasis. Small effusions. Cont lasix for aggressive diuresis. Plan to continue home bronchodilators, Enc OOB, amb, C&DB, PEP. Mechanically assisted ventilation 10/07/2013 10/08/2013 Overview: 10/07/2013 Residual anesthesia still on board. Will WTE once fully awake and appropriate extubation criteria met, including adequate hemostasis. Acute blood loss anemia 10/07/2013 10/0 08/2013 Overview: 10/07/2013 Intraop blood loss with last intraop Hgb of 10.4 Level is adequate for oxygen delivery. Presently minimal need for vasoactive hemodynamic support. Plan Monitor closely for additional bleeding or coagulopathy Fluid resuscitation as needed Consider blood products if acute decompensation or further bleeding, or with Hgb < 7. 10/09/13 - H/H stable, will continue to monitor Cardiac insufficiency follow ing cardiac surgery 10/07/2013 10/09/2013 Overview: 10/07/2013 Immediately postop, needs low dose inotropic support with epinephrine as well as fluid resuscitation to ensure euvolemia (given her LVH and stage 2 diastolic dysfunction). Wean epi as tolerated. Avoid tachycardia 10/08/13 - wean Epi gtt, high fluid balance - begin lasix Stress hyperglycemia 10/07/2013 017 Overview: No hx of DM. Will continue SSI to keep glucose < 160 in post-op period. Tapering steroids. Discharge Planning 10/06/2013 06// 4 Overview: Discharge today 10.14.2013. Lives in [facility] with . Scheduled appointment with [place] [facility] at 10:30 on 10.[address] Kim at 11:30 on 10.16.2013. H/o Anxiety 10/06/2013 12/19/2016 Overview: Hx of anxiety. Takes ativan BID at home. Mood stable. Plan to continue as an inpatient and increase dose as needed ASA CLASS II 11/25/2002 11/06/2011 Aortic valve disorder 2016 Overview: Dr. Mckay documented as of this encounter (statuses as of 03/21/2023) [facility] History of Past illness Narrative* Problem Noted Date Diagnosed Date Resolved Date Pseudopolyp of ascending col on without complication 05/15/2017 08/31/2020 Microscopic hematuria 05/17/20162020 Angiomyolipoma 05/17/2016 08/31/2020 Overview: Unchanged on recent ct scan Hyperdense renal cyst 05/17/20162021 Overview: Unchanged on recent ct scan Acute right-sided low back p ain with right-sided sciatica 03/23/2016 12/19/2016 H/o HTN 10/14/2013 07/06/2022 Overview: Currently normotensive. On BB, IV lasix- will change to po at discharge. Pneumoperitoneum 10/10/2013 04/30/2014 Overview: CXR: Pneumoperitoneum noted under right hemidaphragm. D/w CTS and Cards. Pt asymptomatic. No fevers or tachycardia. Denies any abdominal pain. Improving Diaphragmatic eventration 10/10/2013 SUMMARY 10/10/2013 06/16/2016 Overview: Indication for procedure: AI and , progressive SOB LVEF: 52% RVF: Normal Pacing wires: No Cath: nml Surgeries: 10/08/2013 Redo sternotomy: AVR (#21 Galo mechanical valve) PMHx: HTN, HPL, Asthma, GERD, Anxiety, Depression, hypothyroidism OR Course: Uncomplicated Unit Course: Mod. LVH with apparent volume responsiveness (hemodynamics seemed best with CVP approx 15 and PAD approx 20). DVT prophylaxis: Encourage increased activity, SHAWN hose. Pain following surgery or procedure 10/08/2013 10/14/2013 Overview: Pt w/multiple medication allergies. Reports adequate pain control on current regimen. Lidoderm patches discontinued and steroids are being tapered (started prophylactically for adhesive allergy). Will uptitrate regimen as needed. Hyperchloremic metabolic acidosis 10/08/2013 10/09/2013 Overview: 10/08/13 - slightly acidotic with elevated chloride. Anion pina = +14, delta-delta = -7. No hx or s/s of impaired renal function. Will continue to monitor for now, with plan to treat if hyperchloremia/acidosis persists or worsens Atelectasis/FVO/Pleural effusions 10/08/2013 04/30/2014 Overview: On RA. Wt 2.1 kg above pre-op. CXR: b/l atelectasis. Small effusions. Cont lasix for aggressive diuresis. Plan to continue home bronchodilators, Enc OOB, amb, C&DB, PEP. Mechanically assisted ventilation 10/07/2013 10/08/2013 Overview: 10/07/2013 Residual anesthesia still on board. Will WTE once fully awake and appropriate extubation criteria met, including adequate hemostasis. Acute blood loss anemia 10/07/2013 10/0 08/2013 Overview: 10/07/2013 Intraop blood loss with last intraop Hgb of 10.4 Level is adequate for oxygen delivery. Presently minimal need for vasoactive hemodynamic support. Plan Monitor closely for additional bleeding or coagulopathy Fluid resuscitation as needed Consider blood products if acute decompensation or further bleeding, or with Hgb < 7. 10/09/13 - H/H stable, will continue to monitor Cardiac insufficiency follow ing cardiac surgery 10/07/2013 10/09/2013 Overview: 10/07/2013 Immediately postop, needs low dose inotropic support with epinephrine as well as fluid resuscitation to ensure euvolemia (given her LVH and stage 2 diastolic dysfunction). Wean epi as tolerated. Avoid tachycardia 10/08/13 - wean Epi gtt, high fluid balance - begin lasix Stress hyperglycemia 10/07/2013 017 Overview: No hx of DM. Will continue SSI to keep glucose < 160 in post-op period. Tapering steroids. Discharge Planning 10/06/2013 06//201 4 Overview: Discharge today 10.14.2013. Lives in [facility] with . Scheduled appointment with [place] [facility] at 10:30 on 10.[address] Kim at 11:30 on 10.16.2013. H/o Anxiety 10/06/2013 12/19/2016 Overview: Hx of anxiety. Takes ativan BID at home. Mood stable. Plan to continue as an inpatient and increase dose as needed ASA CLASS II 11/25/2002 11/06/2011 Aortic valve disorder 2016 Overview: Dr. Mckay documented as of this encounter (statuses as of 03/27/2023) [facility] History of Past illness Narrative* Problem Noted Date Diagnosed Date Resolved Date Pseudopolyp of ascending col on without complication 05/15/2017 08/31/2020 Microscopic hematuria 05/17/20162020 Angiomyolipoma 05/17/2016 08/31/2020 Overview: Unchanged on recent ct scan Hyperdense renal cyst 05/17/20162021 Overview: Unchanged on recent ct scan Acute right-sided low back p ain with right-sided sciatica 03/23/2016 12/19/2016 H/o HTN 10/14/2013 07/06/2022 Overview: Currently normotensive. On BB, IV lasix- will change to po at discharge. Pneumoperitoneum 10/10/2013 04/30/2014 Overview: CXR: Pneumoperitoneum noted under right hemidaphragm. D/w CTS and Cards. Pt asymptomatic. No fevers or tachycardia. Denies any abdominal pain. Improving Diaphragmatic eventration 10/10/2013 SUMMARY 10/10/2013 06/16/2016 Overview: Indication for procedure: AI and , progressive SOB LVEF: 52% RVF: Normal Pacing wires: No Cath: nml Surgeries: 10/08/2013 Redo sternotomy: AVR (#21 Sunset mechanical valve) PMHx: HTN, HPL, Asthma, GERD, Anxiety, Depression, hypothyroidism OR Course: Uncomplicated Unit Course: Mod. LVH with apparent volume responsiveness (hemodynamics seemed best with CVP approx 15 and PAD approx 20). DVT prophylaxis: Encourage increased activity, SHAWN vivar. Pain following surgery or procedure 10/08/2013 10/14/2013 Overview: Pt w/multiple medication allergies. Reports adequate pain control on current regimen. Lidoderm patches discontinued and steroids are being tapered (started prophylactically for adhesive allergy). Will uptitrate regimen as needed. Hyperchloremic metabolic acidosis 10/08/2013 10/09/2013 Overview: 10/08/13 - slightly acidotic with elevated chloride. Anion pina = +14, delta-delta = -7. No hx or s/s of impaired renal function. Will continue to monitor for now, with plan to treat if hyperchloremia/acidosis persists or worsens Atelectasis/FVO/Pleural effusions 10/08/2013 04/30/2014 Overview: On RA. Wt 2.1 kg above pre-op. CXR: b/l atelectasis. Small effusions. Cont lasix for aggressive diuresis. Plan to continue home bronchodilators, Enc OOB, amb, C&DB, PEP. Mechanically assisted ventilation 10/07/2013 10/08/2013 Overview: 10/07/2013 Residual anesthesia still on board. Will WTE once fully awake and appropriate extubation criteria met, including adequate hemostasis. Acute blood loss anemia 10/07/2013 1008/2013 Overview: 10/07/2013 Intraop blood loss with last intraop Hgb of 10.4 Level is adequate for oxygen delivery. Presently minimal need for vasoactive hemodynamic support. Plan Monitor closely for additional bleeding or coagulopathy Fluid resuscitation as needed Consider blood products if acute decompensation or further bleeding, or with Hgb < 7. 10/09/13 - H/H stable, will continue to monitor Cardiac insufficiency follow ing cardiac surgery 10/07/2013 10/09/2013 Overview: 10/07/2013 Immediately postop, needs low dose inotropic support with epinephrine as well as fluid resuscitation to ensure euvolemia (given her LVH and stage 2 diastolic dysfunction). Wean epi as tolerated. Avoid tachycardia 10/08/13 - wean Epi gtt, high fluid balance - begin lasix Stress hyperglycemia 10/07/201312/19/2 017 Overview: No hx of DM. Will continue SSI to keep glucose < 160 in post-op period. Tapering steroids. Discharge Planning 10/06/2013 06/06/201 4 Overview: Discharge today 10.14.2013. Lives in [facility] with . Scheduled appointment with [place] [facility] at 10:30 on [address] Kim at 11:30 on 10.16.2013. H/o Anxiety 10/06/2013 12/19/2016 Overview: Hx of anxiety. Takes ativan BID at home. Mood stable. Plan to continue as an inpatient and increase dose as needed ASA CLASS II 11/25/2002 11/06/2011 Aortic valve disorder 2016 Overview: Dr. Mckay documented as of this encounter (statuses as of 04/04/2023) [facility] History of Past illness Narrative* Problem Noted Date Diagnosed Date Resolved Date Pseudopolyp of ascending col on without complication 05/15/2017 08/31/2020 Microscopic hematuria 05/17/20162020 Angiomyolipoma 05/17/2016 08/31/2020 Overview: Unchanged on recent ct scan Hyperdense renal cyst 05/17/20162021 Overview: Unchanged on recent ct scan Acute right-sided low back p ain with right-sided sciatica 03/23/2016 12/19/2016 H/o HTN 10/14/2013 07/06/2022 Overview: Currently normotensive. On BB, IV lasix- will change to po at discharge. Pneumoperitoneum 10/10/2013 04/30/2014 Overview: CXR: Pneumoperitoneum noted under right hemidaphragm. D/w CTS and Cards. Pt asymptomatic. No fevers or tachycardia. Denies any abdominal pain. Improving Diaphragmatic eventration 10/10/2013 SUMMARY 10/10/2013 06/16/2016 Overview: Indication for procedure: AI and , progressive SOB LVEF: 52% RVF: Normal Pacing wires: No Cath: nml Surgeries: 10/08/2013 Redo sternotomy: AVR (#21 Galo mechanical valve) PMHx: HTN, HPL, Asthma, GERD, Anxiety, Depression, hypothyroidism OR Course: Uncomplicated Unit Course: Mod. LVH with apparent volume responsiveness (hemodynamics seemed best with CVP approx 15 and PAD approx 20). DVT prophylaxis: Encourage increased activity, SHAWN hose. Pain following surgery or procedure 10/08/2013 10/14/2013 Overview: Pt w/multiple medication allergies. Reports adequate pain control on current regimen. Lidoderm patches discontinued and steroids are being tapered (started prophylactically for adhesive allergy). Will uptitrate regimen as needed. Hyperchloremic metabolic acidosis 10/08/2013 10/09/2013 Overview: 10/08/13 - slightly acidotic with elevated chloride. Anion pina = +14, delta-delta = -7. No hx or s/s of impaired renal function. Will continue to monitor for now, with plan to treat if hyperchloremia/acidosis persists or worsens Atelectasis/FVO/Pleural effusions 10/08/2013 04/30/2014 Overview: On RA. Wt 2.1 kg above pre-op. CXR: b/l atelectasis. Small effusions. Cont lasix for aggressive diuresis. Plan to continue home bronchodilators, Enc OOB, amb, C&DB, PEP. Mechanically assisted ventilation 10/07/2013 10/08/2013 Overview: 10/07/2013 Residual anesthesia still on board. Will WTE once fully awake and appropriate extubation criteria met, including adequate hemostasis. Acute blood loss anemia 10/07/201308/2013 Overview: 10/07/2013 Intraop blood loss with last intraop Hgb of 10.4 Level is adequate for oxygen delivery. Presently minimal need for vasoactive hemodynamic support. Plan Monitor closely for additional bleeding or coagulopathy Fluid resuscitation as needed Consider blood products if acute decompensation or further bleeding, or with Hgb < 7. / - H/H stable, will continue to monitor Cardiac insufficiency follow ing cardiac surgery 10/07/2013 10/09/2013 Overview: 10/07/2013 Immediately postop, needs low dose inotropic support with epinephrine as well as fluid resuscitation to ensure euvolemia (given her LVH and stage 2 diastolic dysfunction). Wean epi as tolerated. Avoid tachycardia 10/08/13 - wean Epi gtt, high fluid balance - begin lasix Stress hyperglycemia 10/07/2013 017 Overview: No hx of DM. Will continue SSI to keep glucose < 160 in post-op period. Tapering steroids. Discharge Planning 10/06/2013 4 Overview: Discharge today 10.14.2013. Lives in [facility] with . Scheduled appointment with [place] [facility] at 10:30 on 10.[address] Kim at 11:30 on 10.16.2013. H/o Anxiety 10/06/2013 12/19/2016 Overview: Hx of anxiety. Takes ativan BID at home. Mood stable. Plan to continue as an inpatient and increase dose as needed ASA CLASS II 11/25/2002 11/06/2011 Aortic valve disorder 2016 Overview: Dr. Mckay documented as of this encounter (statuses as of 04/12/2023) [facility] History of Past illness Narrative* Problem Noted Date Diagnosed Date Resolved Date Pseudopolyp of ascending col on without complication 05/15/2017 08/31/2020 Microscopic hematuria 05/17/20162020 Angiomyolipoma 05/17/2016 08/31/2020 Overview: Unchanged on recent ct scan Hyperdense renal cyst 05/17/20162021 Overview: Unchanged on recent ct scan Acute right-sided low back p ain with right-sided sciatica 03/23/2016 12/19/2016 H/o HTN 10/14/2013 07/06/2022 Overview: Currently normotensive. On BB, IV lasix- will change to po at discharge. Pneumoperitoneum 10/10/2013 04/30/2014 Overview: CXR: Pneumoperitoneum noted under right hemidaphragm. D/w CTS and Cards. Pt asymptomatic. No fevers or tachycardia. Denies any abdominal pain. Improving Diaphragmatic eventration 10/10/2013 SUMMARY 10/10/2013 06/16/2016 Overview: Indication for procedure: AI and , progressive SOB LVEF: 52% RVF: Normal Pacing wires: No Cath: nml Surgeries: 10/08/2013 Redo sternotomy: AVR (#21 Sunset mechanical valve) PMHx: HTN, HPL, Asthma, GERD, Anxiety, Depression, hypothyroidism OR Course: Uncomplicated Unit Course: Mod. LVH with apparent volume responsiveness (hemodynamics seemed best with CVP approx 15 and PAD approx 20). DVT prophylaxis: Encourage increased activity, SHAWN hose. Pain following surgery or procedure 10/08/2013 10/14/2013 Overview: Pt w/multiple medication allergies. Reports adequate pain control on current regimen. Lidoderm patches discontinued and steroids are being tapered (started prophylactically for adhesive allergy). Will uptitrate regimen as needed. Hyperchloremic metabolic acidosis 10/08/2013 10/09/2013 Overview: 10/08/13 - slightly acidotic with elevated chloride. Anion pina = +14, delta-delta = -7. No hx or s/s of impaired renal function. Will continue to monitor for now, with plan to treat if hyperchloremia/acidosis persists or worsens Atelectasis/FVO/Pleural effusions 10/08/2013 04/30/2014 Overview: On RA. Wt 2.1 kg above pre-op. CXR: b/l atelectasis. Small effusions. Cont lasix for aggressive diuresis. Plan to continue home bronchodilators, Enc OOB, amb, C&DB, PEP. Mechanically assisted ventilation 10/07/2013 10/08/2013 Overview: 10/07/2013 Residual anesthesia still on board. Will WTE once fully awake and appropriate extubation criteria met, including adequate hemostasis. Acute blood loss anemia 10/07/2013 10/0 08/2013 Overview: 10/07/2013 Intraop blood loss with last intraop Hgb of 10.4 Level is adequate for oxygen delivery. Presently minimal need for vasoactive hemodynamic support. Plan Monitor closely for additional bleeding or coagulopathy Fluid resuscitation as needed Consider blood products if acute decompensation or further bleeding, or with Hgb < 7. 10/09/13 - H/H stable, will continue to monitor Cardiac insufficiency follow ing cardiac surgery 10/07/2013 10/09/2013 Overview: 10/07/2013 Immediately postop, needs low dose inotropic support with epinephrine as well as fluid resuscitation to ensure euvolemia (given her LVH and stage 2 diastolic dysfunction). Wean epi as tolerated. Avoid tachycardia 10/08/13 - wean Epi gtt, high fluid balance - begin lasix Stress hyperglycemia 10/07/2013 017 Overview: No hx of DM. Will continue SSI to keep glucose < 160 in post-op period. Tapering steroids. Discharge Planning 10/06/2013 4 Overview: Discharge today 10.14.2013. Lives in [facility] with . Scheduled appointment with [place] [facility] at 10:30 on [address] Kim at 11:30 on 10.16.2013. H/o Anxiety 10/06/2013 12/19/2016 Overview: Hx of anxiety. Takes ativan BID at home. Mood stable. Plan to continue as an inpatient and increase dose as needed ASA CLASS II 11/25/2002 11/06/2011 Aortic valve disorder 2016 Overview: Dr. Mckay documented as of this encounter (statuses as of 04/13/2023) [facility] Past illness Narrative* Problem Noted Date Diagnosed Date Resolved Date Pseudopolyp of ascending col on without complication 05/15/2017 08/31/2020 Microscopic hematuria 05/17/20162020 Angiomyolipoma 05/17/2016 08/31/2020 Overview: Unchanged on recent ct scan Hyperdense renal cyst 05/17/20162021 Overview: Unchanged on recent ct scan Acute right-sided low back p ain with right-sided sciatica 03/23/2016 12/19/2016 H/o HTN 10/14/2013 07/06/2022 Overview: Currently normotensive. On BB, IV lasix- will change to po at discharge. Pneumoperitoneum 10/10/2013 04/30/2014 Overview: CXR: Pneumoperitoneum noted under right hemidaphragm. D/w CTS and Cards. Pt asymptomatic. No fevers or tachycardia. Denies any abdominal pain. Improving Diaphragmatic eventration 10/10/2013 SUMMARY 10/10/2013 06/16/2016 Overview: Indication for procedure: AI and , progressive SOB LVEF: 52% RVF: Normal Pacing wires: No Cath: nml Surgeries: 10/08/2013 Redo sternotomy: AVR (#21 [place]set mechanical valve) PMHx: HTN, HPL, Asthma, GERD, Anxiety, Depression, hypothyroidism OR Course: Uncomplicated Unit Course: Mod. LVH with apparent volume responsiveness (hemodynamics seemed best with CVP approx 15 and PAD approx 20). DVT prophylaxis: Encourage increased activity, SHAWN hose. Pain following surgery or procedure 10/08/2013 10/14/2013 Overview: Pt w/multiple medication allergies. Reports adequate pain control on current regimen. Lidoderm patches discontinued and steroids are being tapered (started prophylactically for adhesive allergy). Will uptitrate regimen as needed. Hyperchloremic metabolic acidosis 10/08/2013 10/09/2013 Overview: 10/08/13 - slightly acidotic with elevated chloride. Anion pina = +14, delta-delta = -7. No hx or s/s of impaired renal function. Will continue to monitor for now, with plan to treat if hyperchloremia/acidosis persists or worsens Atelectasis/FVO/Pleural effusions 10/08/2013 04/30/2014 Overview: On RA. Wt 2.1 kg above pre-op. CXR: b/l atelectasis. Small effusions. Cont lasix for aggressive diuresis. Plan to continue home bronchodilators, Enc OOB, amb, C&DB, PEP. Mechanically assisted ventilation 10/07/2013 10/08/2013 Overview: 10/07/2013 Residual anesthesia still on board. Will WTE once fully awake and appropriate extubation criteria met, including adequate hemostasis. Acute blood loss anemia 10/07/201308/2013 Overview: 10/07/2013 Intraop blood loss with last intraop Hgb of 10.4 Level is adequate for oxygen delivery. Presently minimal need for vasoactive hemodynamic support. Plan Monitor closely for additional bleeding or coagulopathy Fluid resuscitation as needed Consider blood products if acute decompensation or further bleeding, or with Hgb < 7. 10/09/13 - H/H stable, will continue to monitor Cardiac insufficiency follow ing cardiac surgery 10/07/2013 10/09/2013 Overview: 10/07/2013 Immediately postop, needs low dose inotropic support with epinephrine as well as fluid resuscitation to ensure euvolemia (given her LVH and stage 2 diastolic dysfunction). Wean epi as tolerated. Avoid tachycardia 10/08/13 - wean Epi gtt, high fluid balance - begin lasix Stress hyperglycemia 10/07/2013 017 Overview: No hx of DM. Will continue SSI to keep glucose < 160 in post-op period. Tapering steroids. Discharge Planning 10/06/2013 06/ 4 Overview: Discharge today 10.14.2013. Lives in [facility] with . Scheduled appointment with [place] [facility] at 10:30 on [address] Kim at 11:30 on 10.16.2013. H/o Anxiety 10/06/2013 12/19/2016 Overview: Hx of anxiety. Takes ativan BID at home. Mood stable. Plan to continue as an inpatient and increase dose as needed ASA CLASS II 11/25/2002 11/06/2011 Aortic valve disorder 2016 Overview: Dr. Mckay documented as of this encounter (statuses as of 04/18/2023) [facility] of Past [facility] Narrative* Problem Noted Date Diagnosed Date Resolved Date Pseudopolyp of ascending col on without complication 05/15/2017 08/31/2020 Microscopic hematuria 05/17/20162020 Angiomyolipoma 05/17/2016 08/31/2020 Overview: Unchanged on recent ct scan Hyperdense renal cyst 05/17/20162021 Overview: Unchanged on recent ct scan Acute right-sided low back p ain with right-sided sciatica 03/23/2016 12/19/2016 H/o HTN 10/14/2013 07/06/2022 Overview: Currently normotensive. On BB, IV lasix- will change to po at discharge. Pneumoperitoneum 10/10/2013 04/30/2014 Overview: CXR: Pneumoperitoneum noted under right hemidaphragm. D/w CTS and Cards. Pt asymptomatic. No fevers or tachycardia. Denies any abdominal pain. Improving Diaphragmatic eventration 10/10/2013 SUMMARY 10/10/2013 06/16/2016 Overview: Indication for procedure: AI and , progressive SOB LVEF: 52% RVF: Normal Pacing wires: No Cath: nml Surgeries: 10/08/2013 Redo sternotomy: AVR (#21 Sunset mechanical valve) PMHx: HTN, HPL, Asthma, GERD, Anxiety, Depression, hypothyroidism OR Course: Uncomplicated Unit Course: Mod. LVH with apparent volume responsiveness (hemodynamics seemed best with CVP approx 15 and PAD approx 20). DVT prophylaxis: Encourage increased activity, SHAWN hose. Pain following surgery or procedure 10/08/2013 10/14/2013 Overview: Pt w/multiple medication allergies. Reports adequate pain control on current regimen. Lidoderm patches discontinued and steroids are being tapered (started prophylactically for adhesive allergy). Will uptitrate regimen as needed. Hyperchloremic metabolic acidosis 10/08/2013 10/09/2013 Overview: 10/08/13 - slightly acidotic with elevated chloride. Anion pina = +14, delta-delta = -7. No hx or s/s of impaired renal function. Will continue to monitor for now, with plan to treat if hyperchloremia/acidosis persists or worsens Atelectasis/FVO/Pleural effusions 10/08/2013 04/30/2014 Overview: On RA. Wt 2.1 kg above pre-op. CXR: b/l atelectasis. Small effusions. Cont lasix for aggressive diuresis. Plan to continue home bronchodilators, Enc OOB, amb, C&DB, PEP. Mechanically assisted ventilation 10/07/2013 10/08/2013 Overview: 10/07/2013 Residual anesthesia still on board. Will WTE once fully awake and appropriate extubation criteria met, including adequate hemostasis. Acute blood loss anemia 10/07/2013 1008/2013 Overview: 10/07/2013 Intraop blood loss with last intraop Hgb of 10.4 Level is adequate for oxygen delivery. Presently minimal need for vasoactive hemodynamic support. Plan Monitor closely for additional bleeding or coagulopathy Fluid resuscitation as needed Consider blood products if acute decompensation or further bleeding, or with Hgb < 7. 10/09/13 - H/H stable, will continue to monitor Cardiac insufficiency follow ing cardiac surgery 10/07/2013 10/09/2013 Overview: 10/07/2013 Immediately postop, needs low dose inotropic support with epinephrine as well as fluid resuscitation to ensure euvolemia (given her LVH and stage 2 diastolic dysfunction). Wean epi as tolerated. Avoid tachycardia 10/08/13 - wean Epi gtt, high fluid balance - begin lasix Stress hyperglycemia 10/07/2013 017 Overview: No hx of DM. Will continue SSI to keep glucose < 160 in post-op period. Tapering steroids. Discharge Planning 10/06/2013 4 Overview: Discharge today 10.14.2013. Lives in [facility] with . Scheduled appointment with [place] [facility] at 10:30 on 10.[address] Kim at 11:30 on 10.16.2013. H/o Anxiety 10/06/2013 12/19/2016 Overview: Hx of anxiety. Takes ativan BID at home. Mood stable. Plan to continue as an inpatient and increase dose as needed ASA CLASS II 11/25/2002 11/06/2011 Aortic valve disorder 2016 Overview: Dr. Mckay documented as of this encounter (statuses as of 04/27/2023) [facility] History of Past illness Narrative* Problem Noted Date Diagnosed Date Resolved Date Pseudopolyp of ascending col on without complication 05/15/2017 08/31/2020 Microscopic hematuria 05/17/20162020 Angiomyolipoma 05/17/2016 08/31/2020 Overview: Unchanged on recent ct scan Hyperdense renal cyst 05/17/20162021 Overview: Unchanged on recent ct scan Acute right-sided low back p ain with right-sided sciatica 03/23/2016 12/19/2016 H/o HTN 10/14/2013 07/06/2022 Overview: Currently normotensive. On BB, IV lasix- will change to po at discharge. Pneumoperitoneum 10/10/2013 04/30/2014 Overview: CXR: Pneumoperitoneum noted under right hemidaphragm. D/w CTS and Cards. Pt asymptomatic. No fevers or tachycardia. Denies any abdominal pain. Improving Diaphragmatic eventration 10/10/2013 SUMMARY 10/10/2013 06/16/2016 Overview: Indication for procedure: AI and , progressive SOB LVEF: 52% RVF: Normal Pacing wires: No Cath: nml Surgeries: 10/08/2013 Redo sternotomy: AVR (#21 Galo mechanical valve) PMHx: HTN, HPL, Asthma, GERD, Anxiety, Depression, hypothyroidism OR Course: Uncomplicated Unit Course: Mod. LVH with apparent volume responsiveness (hemodynamics seemed best with CVP approx 15 and PAD approx 20). DVT prophylaxis: Encourage increased activity, SHAWN hose. Pain following surgery or procedure 10/08/2013 10/14/2013 Overview: Pt w/multiple medication allergies. Reports adequate pain control on current regimen. Lidoderm patches discontinued and steroids are being tapered (started prophylactically for adhesive allergy). Will uptitrate regimen as needed. Hyperchloremic metabolic acidosis 10/08/2013 10/09/2013 Overview: 10/08/13 - slightly acidotic with elevated chloride. Anion pina = +14, delta-delta = -7. No hx or s/s of impaired renal function. Will continue to monitor for now, with plan to treat if hyperchloremia/acidosis persists or worsens Atelectasis/FVO/Pleural effusions 10/08/2013 04/30/2014 Overview: On RA. Wt 2.1 kg above pre-op. CXR: b/l atelectasis. Small effusions. Cont lasix for aggressive diuresis. Plan to continue home bronchodilators, Enc OOB, amb, C&DB, PEP. Mechanically assisted ventilation 10/07/2013 10/08/2013 Overview: 10/07/2013 Residual anesthesia still on board. Will WTE once fully awake and appropriate extubation criteria met, including adequate hemostasis. Acute blood loss anemia 10/07/2013 1008/2013 Overview: 10/07/2013 Intraop blood loss with last intraop Hgb of 10.4 Level is adequate for oxygen delivery. Presently minimal need for vasoactive hemodynamic support. Plan Monitor closely for additional bleeding or coagulopathy Fluid resuscitation as needed Consider blood products if acute decompensation or further bleeding, or with Hgb < 7. 10/09/13 - H/H stable, will continue to monitor Cardiac insufficiency follow ing cardiac surgery 10/07/2013 10/09/2013 Overview: 10/07/2013 Immediately postop, needs low dose inotropic support with epinephrine as well as fluid resuscitation to ensure euvolemia (given her LVH and stage 2 diastolic dysfunction). Wean epi as tolerated. Avoid tachycardia 10/08/13 - wean Epi gtt, high fluid balance - begin lasix Stress hyperglycemia 10/07/2013 017 Overview: No hx of DM. Will continue SSI to keep glucose < 160 in post-op period. Tapering steroids. Discharge Planning 10/06/2013 4 Overview: Discharge today 10.14.2013. Lives in [facility] with . Scheduled appointment with [place] [facility] at 10:30 on [address] Kim at 11:30 on 10.16.2013. H/o Anxiety 10/06/2013 12/19/2016 Overview: Hx of anxiety. Takes ativan BID at home. Mood stable. Plan to continue as an inpatient and increase dose as needed ASA CLASS II 11/25/2002 11/06/2011 Aortic valve disorder 2016 Overview: Dr. Mckay documented as of this encounter (statuses as of 04/27/2023) [facility] History of Past illness Narrative* Problem Noted Date Diagnosed Date Resolved Date Pseudopolyp of ascending col on without complication 05/15/2017 08/31/2020 Microscopic hematuria 05/17/20162020 Angiomyolipoma 05/17/2016 08/31/2020 Overview: Unchanged on recent ct scan Hyperdense renal cyst 05/17/20162021 Overview: Unchanged on recent ct scan Acute right-sided low back p ain with right-sided sciatica 03/23/2016 12/19/2016 H/o HTN 10/14/2013 07/06/2022 Overview: Currently normotensive. On BB, IV lasix- will change to po at discharge. Pneumoperitoneum 10/10/2013 04/30/2014 Overview: CXR: Pneumoperitoneum noted under right hemidaphragm. D/w CTS and Cards. Pt asymptomatic. No fevers or tachycardia. Denies any abdominal pain. Improving Diaphragmatic eventration 10/10/2013 SUMMARY 10/10/2013 06/16/2016 Overview: Indication for procedure: AI and , progressive SOB LVEF: 52% RVF: Normal Pacing wires: No Cath: nml Surgeries: 10/08/2013 Redo sternotomy: AVR (#21 Galo mechanical valve) PMHx: HTN, HPL, Asthma, GERD, Anxiety, Depression, hypothyroidism OR Course: Uncomplicated Unit Course: Mod. LVH with apparent volume responsiveness (hemodynamics seemed best with CVP approx 15 and PAD approx 20). DVT prophylaxis: Encourage increased activity, SHAWN hose. Pain following surgery or procedure 10/08/2013 10/14/2013 Overview: Pt w/multiple medication allergies. Reports adequate pain control on current regimen. Lidoderm patches discontinued and steroids are being tapered (started prophylactically for adhesive allergy). Will uptitrate regimen as needed. Hyperchloremic metabolic acidosis 10/08/2013 10/09/2013 Overview: 10/08/13 - slightly acidotic with elevated chloride. Anion pina = +14, delta-delta = -7. No hx or s/s of impaired renal function. Will continue to monitor for now, with plan to treat if hyperchloremia/acidosis persists or worsens Atelectasis/FVO/Pleural effusions 10/08/2013 04/30/2014 Overview: On RA. Wt 2.1 kg above pre-op. CXR: b/l atelectasis. Small effusions. Cont lasix for aggressive diuresis. Plan to continue home bronchodilators, Enc OOB, amb, C&DB, PEP. Mechanically assisted ventilation 10/07/2013 10/08/2013 Overview: 10/07/2013 Residual anesthesia still on board. Will WTE once fully awake and appropriate extubation criteria met, including adequate hemostasis. Acute blood loss anemia 10/07/2013 10/0 08/2013 Overview: 10/07/2013 Intraop blood loss with last intraop Hgb of 10.4 Level is adequate for oxygen delivery. Presently minimal need for vasoactive hemodynamic support. Plan Monitor closely for additional bleeding or coagulopathy Fluid resuscitation as needed Consider blood products if acute decompensation or further bleeding, or with Hgb < 7. 10/09/13 - H/H stable, will continue to monitor Cardiac insufficiency follow ing cardiac surgery 10/07/2013 10/09/2013 Overview: 10/07/2013 Immediately postop, needs low dose inotropic support with epinephrine as well as fluid resuscitation to ensure euvolemia (given her LVH and stage 2 diastolic dysfunction). Wean epi as tolerated. Avoid tachycardia 10/08/13 - wean Epi gtt, high fluid balance - begin lasix Stress hyperglycemia 10/07/2013 017 Overview: No hx of DM. Will continue SSI to keep glucose < 160 in post-op period. Tapering steroids. Discharge Planning 10/06/2013 06//201 4 Overview: Discharge today 10.14.2013. Lives in [facility] with . Scheduled appointment with [place] [facility] at 10:30 on 10.[address] Kim at 11:30 on 10.16.2013. H/o Anxiety 10/06/2013 12/19/2016 Overview: Hx of anxiety. Takes ativan BID at home. Mood stable. Plan to continue as an inpatient and increase dose as needed ASA CLASS II 11/25/2002 11/06/2011 Aortic valve disorder 2016 Overview: Dr. Moodispaw documented as of this encounter (statuses as of 05/03/2023) [facility] History of Past illness Narrative* Problem Noted Date Diagnosed Date Resolved Date Pseudopolyp of ascending col on without complication 05/15/2017 08/31/2020 Microscopic hematuria 05/17/20162020 Angiomyolipoma 05/17/2016 08/31/2020 Overview: Unchanged on recent ct scan Hyperdense renal cyst 05/17/20162021 Overview: Unchanged on recent ct scan Acute right-sided low back p ain with right-sided sciatica 03/23/2016 12/19/2016 H/o HTN 10/14/2013 07/06/2022 Overview: Currently normotensive. On BB, IV lasix- will change to po at discharge. Pneumoperitoneum 10/10/2013 04/30/2014 Overview: CXR: Pneumoperitoneum noted under right hemidaphragm. D/w CTS and Cards. Pt asymptomatic. No fevers or tachycardia. Denies any abdominal pain. Improving Diaphragmatic eventration 10/10/2013 SUMMARY 10/10/2013 06/16/2016 Overview: Indication for procedure: AI and , progressive SOB LVEF: 52% RVF: Normal Pacing wires: No Cath: nml Surgeries: 10/08/2013 Redo sternotomy: AVR (#21 Galo mechanical valve) PMHx: HTN, HPL, Asthma, GERD, Anxiety, Depression, hypothyroidism OR Course: Uncomplicated Unit Course: Mod. LVH with apparent volume responsiveness (hemodynamics seemed best with CVP approx 15 and PAD approx 20). DVT prophylaxis: Encourage increased activity, SHAWN hose. Pain following surgery or procedure 10/08/2013 10/14/2013 Overview: Pt w/multiple medication allergies. Reports adequate pain control on current regimen. Lidoderm patches discontinued and steroids are being tapered (started prophylactically for adhesive allergy). Will uptitrate regimen as needed. Hyperchloremic metabolic acidosis 10/08/2013 10/09/2013 Overview: 10/08/13 - slightly acidotic with elevated chloride. Anion pina = +14, delta-delta = -7. No hx or s/s of impaired renal function. Will continue to monitor for now, with plan to treat if hyperchloremia/acidosis persists or worsens Atelectasis/FVO/Pleural effusions 10/08/2013 04/30/2014 Overview: On RA. Wt 2.1 kg above pre-op. CXR: b/l atelectasis. Small effusions. Cont lasix for aggressive diuresis. Plan to continue home bronchodilators, Enc OOB, amb, C&DB, PEP. Mechanically assisted ventilation 10/07/2013 10/08/2013 Overview: 10/07/2013 Residual anesthesia still on board. Will WTE once fully awake and appropriate extubation criteria met, including adequate hemostasis. Acute blood loss anemia 10/07/201308/2013 Overview: 10/07/2013 Intraop blood loss with last intraop Hgb of 10.4 Level is adequate for oxygen delivery. Presently minimal need for vasoactive hemodynamic support. Plan Monitor closely for additional bleeding or coagulopathy Fluid resuscitation as needed Consider blood products if acute decompensation or further bleeding, or with Hgb < 7. 10/09/13 - H/H stable, will continue to monitor Cardiac insufficiency follow ing cardiac surgery 10/07/2013 10/09/2013 Overview: 10/07/2013 Immediately postop, needs low dose inotropic support with epinephrine as well as fluid resuscitation to ensure euvolemia (given her LVH and stage 2 diastolic dysfunction). Wean epi as tolerated. Avoid tachycardia 10/08/13 - wean Epi gtt, high fluid balance - begin lasix Stress hyperglycemia 10/07/2013 017 Overview: No hx of DM. Will continue SSI to keep glucose < 160 in post-op period. Tapering steroids. Discharge Planning 10/06/2013 06//201 4 Overview: Discharge today 10.14.2013. Lives in [facility] with . Scheduled appointment with [place] [facility] at 10:30 on [address] Kim at 11:30 on 10.16.2013. H/o Anxiety 10/06/2013 12/19/2016 Overview: Hx of anxiety. Takes ativan BID at home. Mood stable. Plan to continue as an inpatient and increase dose as needed ASA CLASS II 11/25/2002 11/06/2011 Aortic valve disorder 2016 Overview: Dr. Mckay documented as of this encounter (statuses as of 05/16/2023) [facility] History of Past illness Narrative* Problem Noted Date Diagnosed Date Resolved Date Pseudopolyp of ascending col on without complication 05/15/2017 08/31/2020 Microscopic hematuria 05/17/20162020 Angiomyolipoma 05/17/2016 08/31/2020 Overview: Unchanged on recent ct scan Hyperdense renal cyst 05/17/20162021 Overview: Unchanged on recent ct scan Acute right-sided low back p ain with right-sided sciatica 03/23/2016 12/19/2016 H/o HTN 10/14/2013 07/06/2022 Overview: Currently normotensive. On BB, IV lasix- will change to po at discharge. Pneumoperitoneum 10/10/2013 04/30/2014 Overview: CXR: Pneumoperitoneum noted under right hemidaphragm. D/w CTS and Cards. Pt asymptomatic. No fevers or tachycardia. Denies any abdominal pain. Improving Diaphragmatic eventration 10/10/2013 SUMMARY 10/10/2013 06/16/2016 Overview: Indication for procedure: AI and , progressive SOB LVEF: 52% RVF: Normal Pacing wires: No Cath: nml Surgeries: 10/08/2013 Redo sternotomy: AVR (#21 Sunset mechanical valve) PMHx: HTN, HPL, Asthma, GERD, Anxiety, Depression, hypothyroidism OR Course: Uncomplicated Unit Course: Mod. LVH with apparent volume responsiveness (hemodynamics seemed best with CVP approx 15 and PAD approx 20). DVT prophylaxis: Encourage increased activity, SHAWN hose. Pain following surgery or procedure 10/08/2013 10/14/2013 Overview: Pt w/multiple medication allergies. Reports adequate pain control on current regimen. Lidoderm patches discontinued and steroids are being tapered (started prophylactically for adhesive allergy). Will uptitrate regimen as needed. Hyperchloremic metabolic acidosis 10/08/2013 10/09/2013 Overview: 10/08/13 - slightly acidotic with elevated chloride. Anion pina = +14, delta-delta = -7. No hx or s/s of impaired renal function. Will continue to monitor for now, with plan to treat if hyperchloremia/acidosis persists or worsens Atelectasis/FVO/Pleural effusions 10/08/2013 04/30/2014 Overview: On RA. Wt 2.1 kg above pre-op. CXR: b/l atelectasis. Small effusions. Cont lasix for aggressive diuresis. Plan to continue home bronchodilators, Enc OOB, amb, C&DB, PEP. Mechanically assisted ventilation 10/07/2013 10/08/2013 Overview: 10/07/2013 Residual anesthesia still on board. Will WTE once fully awake and appropriate extubation criteria met, including adequate hemostasis. Acute blood loss anemia 10/07/201308/2013 Overview: 10/07/2013 Intraop blood loss with last intraop Hgb of 10.4 Level is adequate for oxygen delivery. Presently minimal need for vasoactive hemodynamic support. Plan Monitor closely for additional bleeding or coagulopathy Fluid resuscitation as needed Consider blood products if acute decompensation or further bleeding, or with Hgb < 7. 10/09/13 - H/H stable, will continue to monitor Cardiac insufficiency follow ing cardiac surgery 10/07/2013 10/09/2013 Overview: 10/07/2013 Immediately postop, needs low dose inotropic support with epinephrine as well as fluid resuscitation to ensure euvolemia (given her LVH and stage 2 diastolic dysfunction). Wean epi as tolerated. Avoid tachycardia 10/08/13 - wean Epi gtt, high fluid balance - begin lasix Stress hyperglycemia 10/07/2013 017 Overview: No hx of DM. Will continue SSI to keep glucose < 160 in post-op period. Tapering steroids. Discharge Planning 10/06/2013 4 Overview: Discharge today 10.14.2013. Lives in [facility] with . Scheduled appointment with [place] [facility] at 10:30 on 10.[address] Kim at 11:30 on 10.16.2013. H/o Anxiety 10/06/2013 12/19/2016 Overview: Hx of anxiety. Takes ativan BID at home. Mood stable. Plan to continue as an inpatient and increase dose as needed ASA CLASS II 11/25/2002 11/06/2011 Aortic valve disorder 2016 Overview: Dr. Mckay documented as of this encounter (statuses as of 05/16/2023) [facility] History of Past illness Narrative* Problem Noted Date Diagnosed Date Resolved Date Pseudopolyp of ascending col on without complication 05/15/2017 08/31/2020 Microscopic hematuria 05/17/20162020 Angiomyolipoma 05/17/2016 08/31/2020 Overview: Unchanged on recent ct scan Hyperdense renal cyst 05/17/20162021 Overview: Unchanged on recent ct scan Acute right-sided low back p ain with right-sided sciatica 03/23/2016 12/19/2016 H/o HTN 10/14/2013 07/06/2022 Overview: Currently normotensive. On BB, IV lasix- will change to po at discharge. Pneumoperitoneum 10/10/2013 04/30/2014 Overview: CXR: Pneumoperitoneum noted under right hemidaphragm. D/w CTS and Cards. Pt asymptomatic. No fevers or tachycardia. Denies any abdominal pain. Improving Diaphragmatic eventration 10/10/2013 SUMMARY 10/10/2013 06/16/2016 Overview: Indication for procedure: AI and , progressive SOB LVEF: 52% RVF: Normal Pacing wires: No Cath: nml Surgeries: 10/08/2013 Redo sternotomy: AVR (#21 Sunset mechanical valve) PMHx: HTN, HPL, Asthma, GERD, Anxiety, Depression, hypothyroidism OR Course: Uncomplicated Unit Course: Mod. LVH with apparent volume responsiveness (hemodynamics seemed best with CVP approx 15 and PAD approx 20). DVT prophylaxis: Encourage increased activity, SHAWN hose. Pain following surgery or procedure 10/08/2013 10/14/2013 Overview: Pt w/multiple medication allergies. Reports adequate pain control on current regimen. Lidoderm patches discontinued and steroids are being tapered (started prophylactically for adhesive allergy). Will uptitrate regimen as needed. Hyperchloremic metabolic acidosis 10/08/2013 10/09/2013 Overview: 10/08/13 - slightly acidotic with elevated chloride. Anion pina = +14, delta-delta = -7. No hx or s/s of impaired renal function. Will continue to monitor for now, with plan to treat if hyperchloremia/acidosis persists or worsens Atelectasis/FVO/Pleural effusions 10/08/2013 04/30/2014 Overview: On RA. Wt 2.1 kg above pre-op. CXR: b/l atelectasis. Small effusions. Cont lasix for aggressive diuresis. Plan to continue home bronchodilators, Enc OOB, amb, C&DB, PEP. Mechanically assisted ventilation 10/07/2013 10/08/2013 Overview: 10/07/2013 Residual anesthesia still on board. Will WTE once fully awake and appropriate extubation criteria met, including adequate hemostasis. Acute blood loss anemia 10/07/2013 10/0 08/2013 Overview: 10/07/2013 Intraop blood loss with last intraop Hgb of 10.4 Level is adequate for oxygen delivery. Presently minimal need for vasoactive hemodynamic support. Plan Monitor closely for additional bleeding or coagulopathy Fluid resuscitation as needed Consider blood products if acute decompensation or further bleeding, or with Hgb < 7. 10/09/13 - H/H stable, will continue to monitor Cardiac insufficiency follow ing cardiac surgery 10/07/2013 10/09/2013 Overview: 10/07/2013 Immediately postop, needs low dose inotropic support with epinephrine as well as fluid resuscitation to ensure euvolemia (given her LVH and stage 2 diastolic dysfunction). Wean epi as tolerated. Avoid tachycardia 10/08/13 - wean Epi gtt, high fluid balance - begin lasix Stress hyperglycemia 10/07/2013 017 Overview: No hx of DM. Will continue SSI to keep glucose < 160 in post-op period. Tapering steroids. Discharge Planning 10/06/2013 4 Overview: Discharge today 10.14.2013. Lives in [facility] with . Scheduled appointment with [place] [facility] at 10:30 on [address] Kim at 11:30 on 10.16.2013. H/o Anxiety 10/06/2013 12/19/2016 Overview: Hx of anxiety. Takes ativan BID at home. Mood stable. Plan to continue as an inpatient and increase dose as needed ASA CLASS II 11/25/2002 11/06/2011 Aortic valve disorder 2016 Overview: Dr. Mckay documented as of this encounter (statuses as of 05/30/2023) [facility] History of Past illness Narrative* Problem Noted Date Diagnosed Date Resolved Date Pseudopolyp of ascending col on without complication 05/15/2017 08/31/2020 Microscopic hematuria 05/17/20162020 Angiomyolipoma 05/17/2016 08/31/2020 Overview: Unchanged on recent ct scan Hyperdense renal cyst 05/17/20162021 Overview: Unchanged on recent ct scan Acute right-sided low back p ain with right-sided sciatica 03/23/2016 12/19/2016 H/o HTN 10/14/2013 07/06/2022 Overview: Currently normotensive. On BB, IV lasix- will change to po at discharge. Pneumoperitoneum 10/10/2013 04/30/2014 Overview: CXR: Pneumoperitoneum noted under right hemidaphragm. D/w CTS and Cards. Pt asymptomatic. No fevers or tachycardia. Denies any abdominal pain. Improving Diaphragmatic eventration 10/10/2013 SUMMARY 10/10/2013 06/16/2016 Overview: Indication for procedure: AI and , progressive SOB LVEF: 52% RVF: Normal Pacing wires: No Cath: nml Surgeries: 10/08/2013 Redo sternotomy: AVR (#21 Galo mechanical valve) PMHx: HTN, HPL, Asthma, GERD, Anxiety, Depression, hypothyroidism OR Course: Uncomplicated Unit Course: Mod. LVH with apparent volume responsiveness (hemodynamics seemed best with CVP approx 15 and PAD approx 20). DVT prophylaxis: Encourage increased activity, SHAWN hose. Pain following surgery or procedure 10/08/2013 10/14/2013 Overview: Pt w/multiple medication allergies. Reports adequate pain control on current regimen. Lidoderm patches discontinued and steroids are being tapered (started prophylactically for adhesive allergy). Will uptitrate regimen as needed. Hyperchloremic metabolic acidosis 10/08/2013 10/09/2013 Overview: 10/08/13 - slightly acidotic with elevated chloride. Anion pina = +14, delta-delta = -7. No hx or s/s of impaired renal function. Will continue to monitor for now, with plan to treat if hyperchloremia/acidosis persists or worsens Atelectasis/FVO/Pleural effusions 10/08/2013 04/30/2014 Overview: On RA. Wt 2.1 kg above pre-op. CXR: b/l atelectasis. Small effusions. Cont lasix for aggressive diuresis. Plan to continue home bronchodilators, Enc OOB, amb, C&DB, PEP. Mechanically assisted ventilation 10/07/2013 10/08/2013 Overview: 10/07/2013 Residual anesthesia still on board. Will WTE once fully awake and appropriate extubation criteria met, including adequate hemostasis. Acute blood loss anemia 10/07/2013 10/0 08/2013 Overview: 10/07/2013 Intraop blood loss with last intraop Hgb of 10.4 Level is adequate for oxygen delivery. Presently minimal need for vasoactive hemodynamic support. Plan Monitor closely for additional bleeding or coagulopathy Fluid resuscitation as needed Consider blood products if acute decompensation or further bleeding, or with Hgb < 7. 10/09/13 - H/H stable, will continue to monitor Cardiac insufficiency follow ing cardiac surgery 10/07/2013 10/09/2013 Overview: 10/07/2013 Immediately postop, needs low dose inotropic support with epinephrine as well as fluid resuscitation to ensure euvolemia (given her LVH and stage 2 diastolic dysfunction). Wean epi as tolerated. Avoid tachycardia 10/08/13 - wean Epi gtt, high fluid balance - begin lasix Stress hyperglycemia 10/07/2013 017 Overview: No hx of DM. Will continue SSI to keep glucose < 160 in post-op period. Tapering steroids. Discharge Planning 10/06/2013 4 Overview: Discharge today 10.14.2013. Lives in [facility] with . Scheduled appointment with [place] [facility] at 10:30 on 10.[address] Kim at 11:30 on 10.16.2013. H/o Anxiety 10/06/2013 12/19/2016 Overview: Hx of anxiety. Takes ativan BID at home. Mood stable. Plan to continue as an inpatient and increase dose as needed ASA CLASS II 11/25/2002 11/06/2011 Aortic valve disorder 2016 Overview: Dr. Mckay documented as of this encounter (statuses as of 06/01/2023) [facility] History of Past illness Narrative* Problem Noted Date Diagnosed Date Resolved Date Pseudopolyp of ascending col on without complication 05/15/2017 08/31/2020 Microscopic hematuria 05/17/20162020 Angiomyolipoma 05/17/2016 08/31/2020 Overview: Unchanged on recent ct scan Hyperdense renal cyst 05/17/20162021 Overview: Unchanged on recent ct scan Acute right-sided low back p ain with right-sided sciatica 03/23/2016 12/19/2016 H/o HTN 10/14/2013 07/06/2022 Overview: Currently normotensive. On BB, IV lasix- will change to po at discharge. Pneumoperitoneum 10/10/2013 04/30/2014 Overview: CXR: Pneumoperitoneum noted under right hemidaphragm. D/w CTS and Cards. Pt asymptomatic. No fevers or tachycardia. Denies any abdominal pain. Improving Diaphragmatic eventration 10/10/2013 SUMMARY 10/10/2013 06/16/2016 Overview: Indication for procedure: AI and , progressive SOB LVEF: 52% RVF: Normal Pacing wires: No Cath: nml Surgeries: 10/08/2013 Redo sternotomy: AVR (#21 [place] mechanical valve) PMHx: HTN, HPL, Asthma, GERD, Anxiety, Depression, hypothyroidism OR Course: Uncomplicated Unit Course: Mod. LVH with apparent volume responsiveness (hemodynamics seemed best with CVP approx 15 and PAD approx 20). DVT prophylaxis: Encourage increased activity, SHAWN hose. Pain following surgery or procedure 10/08/2013 10/14/2013 Overview: Pt w/multiple medication allergies. Reports adequate pain control on current regimen. Lidoderm patches discontinued and steroids are being tapered (started prophylactically for adhesive allergy). Will uptitrate regimen as needed. Hyperchloremic metabolic acidosis 10/08/2013 10/09/2013 Overview: 10/08/13 - slightly acidotic with elevated chloride. Anion pina = +14, delta-delta = -7. No hx or s/s of impaired renal function. Will continue to monitor for now, with plan to treat if hyperchloremia/acidosis persists or worsens Atelectasis/FVO/Pleural effusions 10/08/2013 04/30/2014 Overview: On RA. Wt 2.1 kg above pre-op. CXR: b/l atelectasis. Small effusions. Cont lasix for aggressive diuresis. Plan to continue home bronchodilators, Enc OOB, amb, C&DB, PEP. Mechanically assisted ventilation 10/07/2013 10/08/2013 Overview: 10/07/2013 Residual anesthesia still on board. Will WTE once fully awake and appropriate extubation criteria met, including adequate hemostasis. Acute blood loss anemia 10/07/2013 1008/2013 Overview: 10/07/2013 Intraop blood loss with last intraop Hgb of 10.4 Level is adequate for oxygen delivery. Presently minimal need for vasoactive hemodynamic support. Plan Monitor closely for additional bleeding or coagulopathy Fluid resuscitation as needed Consider blood products if acute decompensation or further bleeding, or with Hgb < 7. 10/09/13 - H/H stable, will continue to monitor Cardiac insufficiency follow ing cardiac surgery 10/07/2013 10/09/2013 Overview: 10/07/2013 Immediately postop, needs low dose inotropic support with epinephrine as well as fluid resuscitation to ensure euvolemia (given her LVH and stage 2 diastolic dysfunction). Wean epi as tolerated. Avoid tachycardia 10/08/13 - wean Epi gtt, high fluid balance - begin lasix Stress hyperglycemia 10/07/2013 017 Overview: No hx of DM. Will continue SSI to keep glucose < 160 in post-op period. Tapering steroids. Discharge Planning 10/06/2013 4 Overview: Discharge today 10.14.2013. Lives in [facility] with . Scheduled appointment with [place] [facility] at 10:30 on [address] Kim at 11:30 on 10.16.2013. H/o Anxiety 10/06/2013 12/19/2016 Overview: Hx of anxiety. Takes ativan BID at home. Mood stable. Plan to continue as an inpatient and increase dose as needed ASA CLASS II 11/25/2002 11/06/2011 Aortic valve disorder 2016 Overview: Dr. Mckay documented as of this encounter (statuses as of 06/01/2023) [facility] History of Past illness Narrative* Problem Noted Date Diagnosed Date Resolved Date Pseudopolyp of ascending col on without complication 05/15/2017 08/31/2020 Microscopic hematuria 05/17/20162020 Angiomyolipoma 05/17/2016 08/31/2020 Overview: Unchanged on recent ct scan Hyperdense renal cyst 05/17/20162021 Overview: Unchanged on recent ct scan Acute right-sided low back p ain with right-sided sciatica 03/23/2016 12/19/2016 H/o HTN 10/14/2013 07/06/2022 Overview: Currently normotensive. On BB, IV lasix- will change to po at discharge. Pneumoperitoneum 10/10/2013 04/30/2014 Overview: CXR: Pneumoperitoneum noted under right hemidaphragm. D/w CTS and Cards. Pt asymptomatic. No fevers or tachycardia. Denies any abdominal pain. Improving Diaphragmatic eventration 10/10/2013 SUMMARY 10/10/2013 06/16/2016 Overview: Indication for procedure: AI and , progressive SOB LVEF: 52% RVF: Normal Pacing wires: No Cath: nml Surgeries: 10/08/2013 Redo sternotomy: AVR (#21 [place] mechanical valve) PMHx: HTN, HPL, Asthma, GERD, Anxiety, Depression, hypothyroidism OR Course: Uncomplicated Unit Course: Mod. LVH with apparent volume responsiveness (hemodynamics seemed best with CVP approx 15 and PAD approx 20). DVT prophylaxis: Encourage increased activity, SHAWN hose. Pain following surgery or procedure 10/08/2013 10/14/2013 Overview: Pt w/multiple medication allergies. Reports adequate pain control on current regimen. Lidoderm patches discontinued and steroids are being tapered (started prophylactically for adhesive allergy). Will uptitrate regimen as needed. Hyperchloremic metabolic acidosis 10/08/2013 10/09/2013 Overview: 10/08/13 - slightly acidotic with elevated chloride. Anion pina = +14, delta-delta = -7. No hx or s/s of impaired renal function. Will continue to monitor for now, with plan to treat if hyperchloremia/acidosis persists or worsens Atelectasis/FVO/Pleural effusions 10/08/2013 04/30/2014 Overview: On RA. Wt 2.1 kg above pre-op. CXR: b/l atelectasis. Small effusions. Cont lasix for aggressive diuresis. Plan to continue home bronchodilators, Enc OOB, amb, C&DB, PEP. Mechanically assisted ventilation 10/07/2013 10/08/2013 Overview: 10/07/2013 Residual anesthesia still on board. Will WTE once fully awake and appropriate extubation criteria met, including adequate hemostasis. Acute blood loss anemia 10/07/2013 10/08/2013 Overview: 10/07/2013 Intraop blood loss with last intraop Hgb of 10.4 Level is adequate for oxygen delivery. Presently minimal need for vasoactive hemodynamic support. Plan Monitor closely for additional bleeding or coagulopathy Fluid resuscitation as needed Consider blood products if acute decompensation or further bleeding, or with Hgb < 7. 10/09/13 - H/H stable, will continue to monitor Cardiac insufficiency follow ing cardiac surgery 10/07/2013 10/09/2013 Overview: 10/07/2013 Immediately postop, needs low dose inotropic support with epinephrine as well as fluid resuscitation to ensure euvolemia (given her LVH and stage 2 diastolic dysfunction). Wean epi as tolerated. Avoid tachycardia 10/08/13 - wean Epi gtt, high fluid balance - begin lasix Stress hyperglycemia 10/07/2013 017 Overview: No hx of DM. Will continue SSI to keep glucose < 160 in post-op period. Tapering steroids. Discharge Planning 10/06/2013 4 Overview: Discharge today 10.14.2013. Lives in [facility] with . Scheduled appointment with [place] [facility] at 10:30 on 10.[address] Kim at 11:30 on 10.16.2013. H/o Anxiety 10/06/2013 12/19/2016 Overview: Hx of anxiety. Takes ativan BID at home. Mood stable. Plan to continue as an inpatient and increase dose as needed ASA CLASS II 11/25/2002 11/06/2011 Aortic valve disorder 2016 Overview: Dr. Mckay documented as of this encounter (statuses as of 06/05/2023) [facility] History of Past illness Narrative* Problem Noted Date Diagnosed Date Resolved Date Pseudopolyp of ascending col on without complication 05/15/2017 08/31/2020 Microscopic hematuria 05/17/20162020 Angiomyolipoma 05/17/2016 08/31/2020 Overview: Unchanged on recent ct scan Hyperdense renal cyst 05/17/20162021 Overview: Unchanged on recent ct scan Acute right-sided low back p ain with right-sided sciatica 03/23/2016 12/19/2016 H/o HTN 10/14/2013 07/06/2022 Overview: Currently normotensive. On BB, IV lasix- will change to po at discharge. Pneumoperitoneum 10/10/2013 04/30/2014 Overview: CXR: Pneumoperitoneum noted under right hemidaphragm. D/w CTS and Cards. Pt asymptomatic. No fevers or tachycardia. Denies any abdominal pain. Improving Diaphragmatic eventration 10/10/2013 SUMMARY 10/10/2013 06/16/2016 Overview: Indication for procedure: AI and , progressive SOB LVEF: 52% RVF: Normal Pacing wires: No Cath: nml Surgeries: 10/08/2013 Redo sternotomy: AVR (#21 [place] mechanical valve) PMHx: HTN, HPL, Asthma, GERD, Anxiety, Depression, hypothyroidism OR Course: Uncomplicated Unit Course: Mod. LVH with apparent volume responsiveness (hemodynamics seemed best with CVP approx 15 and PAD approx 20). DVT prophylaxis: Encourage increased activity, SHAWN hose. Pain following surgery or procedure 10/08/2013 10/14/2013 Overview: Pt w/multiple medication allergies. Reports adequate pain control on current regimen. Lidoderm patches discontinued and steroids are being tapered (started prophylactically for adhesive allergy). Will uptitrate regimen as needed. Hyperchloremic metabolic acidosis 10/08/2013 10/09/2013 Overview: 10/08/13 - slightly acidotic with elevated chloride. Anion pina = +14, delta-delta = -7. No hx or s/s of impaired renal function. Will continue to monitor for now, with plan to treat if hyperchloremia/acidosis persists or worsens Atelectasis/FVO/Pleural effusions 10/08/2013 04/30/2014 Overview: On RA. Wt 2.1 kg above pre-op. CXR: b/l atelectasis. Small effusions. Cont lasix for aggressive diuresis. Plan to continue home bronchodilators, Enc OOB, amb, C&DB, PEP. Mechanically assisted ventilation 10/07/2013 10/08/2013 Overview: 10/07/2013 Residual anesthesia still on board. Will WTE once fully awake and appropriate extubation criteria met, including adequate hemostasis. Acute blood loss anemia 10/07/2013 10/0 08/2013 Overview: 10/07/2013 Intraop blood loss with last intraop Hgb of 10.4 Level is adequate for oxygen delivery. Presently minimal need for vasoactive hemodynamic support. Plan Monitor closely for additional bleeding or coagulopathy Fluid resuscitation as needed Consider blood products if acute decompensation or further bleeding, or with Hgb < 7. 10/09/13 - H/H stable, will continue to monitor Cardiac insufficiency follow ing cardiac surgery 10/07/2013 10/09/2013 Overview: 10/07/2013 Immediately postop, needs low dose inotropic support with epinephrine as well as fluid resuscitation to ensure euvolemia (given her LVH and stage 2 diastolic dysfunction). Wean epi as tolerated. Avoid tachycardia 10/08/13 - wean Epi gtt, high fluid balance - begin lasix Stress hyperglycemia 10/07/2013 017 Overview: No hx of DM. Will continue SSI to keep glucose < 160 in post-op period. Tapering steroids. Discharge Planning 10/06/2013 06/06/201 4 Overview: Discharge today 10.14.2013. Lives in [facility] with . Scheduled appointment with [place] [facility] at 10:30 on 10.[address] Kim at 11:30 on 10.16.2013. H/o Anxiety 10/06/2013 12/19/2016 Overview: Hx of anxiety. Takes ativan BID at home. Mood stable. Plan to continue as an inpatient and increase dose as needed ASA CLASS II 11/25/2002 11/06/2011 Aortic valve disorder 2016 Overview: Dr. Mckay documented as of this encounter (statuses as of 06/15/2023) [facility] History of Past illness Narrative* Problem Noted Date Diagnosed Date Resolved Date Pseudopolyp of ascending col on without complication 05/15/2017 08/31/2020 Microscopic hematuria 05/17/20162020 Angiomyolipoma 05/17/2016 08/31/2020 Overview: Unchanged on recent ct scan Hyperdense renal cyst 05/17/20162021 Overview: Unchanged on recent ct scan Acute right-sided low back p ain with right-sided sciatica 03/23/2016 12/19/2016 H/o HTN 10/14/2013 07/06/2022 Overview: Currently normotensive. On BB, IV lasix- will change to po at discharge. Pneumoperitoneum 10/10/2013 04/30/2014 Overview: CXR: Pneumoperitoneum noted under right hemidaphragm. D/w CTS and Cards. Pt asymptomatic. No fevers or tachycardia. Denies any abdominal pain. Improving Diaphragmatic eventration 10/10/2013 SUMMARY 10/10/2013 06/16/2016 Overview: Indication for procedure: AI and , progressive SOB LVEF: 52% RVF: Normal Pacing wires: No Cath: nml Surgeries: 10/08/2013 Redo sternotomy: AVR (#21 [place] mechanical valve) PMHx: HTN, HPL, Asthma, GERD, Anxiety, Depression, hypothyroidism OR Course: Uncomplicated Unit Course: Mod. LVH with apparent volume responsiveness (hemodynamics seemed best with CVP approx 15 and PAD approx 20). DVT prophylaxis: Encourage increased activity, SHAWN garzone. Pain following surgery or procedure 10/08/2013 10/14/2013 Overview: Pt w/multiple medication allergies. Reports adequate pain control on current regimen. Lidoderm patches discontinued and steroids are being tapered (started prophylactically for adhesive allergy). Will uptitrate regimen as needed. Hyperchloremic metabolic acidosis 10/08/2013 10/09/2013 Overview: 10/08/13 - slightly acidotic with elevated chloride. Anion pina = +14, delta-delta = -7. No hx or s/s of impaired renal function. Will continue to monitor for now, with plan to treat if hyperchloremia/acidosis persists or worsens Atelectasis/FVO/Pleural effusions 10/08/2013 04/30/2014 Overview: On RA. Wt 2.1 kg above pre-op. CXR: b/l atelectasis. Small effusions. Cont lasix for aggressive diuresis. Plan to continue home bronchodilators, Enc OOB, amb, C&DB, PEP. Mechanically assisted ventilation 10/07/2013 10/08/2013 Overview: 10/07/2013 Residual anesthesia still on board. Will WTE once fully awake and appropriate extubation criteria met, including adequate hemostasis. Acute blood loss anemia 10/07/2013 10/0 08/2013 Overview: 10/07/2013 Intraop blood loss with last intraop Hgb of 10.4 Level is adequate for oxygen delivery. Presently minimal need for vasoactive hemodynamic support. Plan Monitor closely for additional bleeding or coagulopathy Fluid resuscitation as needed Consider blood products if acute decompensation or further bleeding, or with Hgb < 7. 10/09/13 - H/H stable, will continue to monitor Cardiac insufficiency follow ing cardiac surgery 10/07/2013 10/09/2013 Overview: 10/07/2013 Immediately postop, needs low dose inotropic support with epinephrine as well as fluid resuscitation to ensure euvolemia (given her LVH and stage 2 diastolic dysfunction). Wean epi as tolerated. Avoid tachycardia 10/08/13 - wean Epi gtt, high fluid balance - begin lasix Stress hyperglycemia 10/07/201312/19/ 017 Overview: No hx of DM. Will continue SSI to keep glucose < 160 in post-op period. Tapering steroids. Discharge Planning 10/06/2013 06//201 4 Overview: Discharge today 10.14.2013. Lives in [facility] with . Scheduled appointment with [place] [facility] at 10:30 on 10.[address] Kim at 11:30 on 10.16.2013. H/o Anxiety 10/06/2013 12/19/2016 Overview: Hx of anxiety. Takes ativan BID at home. Mood stable. Plan to continue as an inpatient and increase dose as needed ASA CLASS II 11/25/2002 11/06/2011 Aortic valve disorder 2016 Overview: Dr. Mckay documented as of this encounter (statuses as of 06/20/2023) [facility] History of Past illness Narrative* Problem Noted Date Diagnosed Date Resolved Date Pseudopolyp of ascending col on without complication 05/15/2017 08/31/2020 Microscopic hematuria 05/17/20162020 Angiomyolipoma 05/17/2016 08/31/2020 Overview: Unchanged on recent ct scan Hyperdense renal cyst 05/17/20162021 Overview: Unchanged on recent ct scan Acute right-sided low back p ain with right-sided sciatica 03/23/2016 12/19/2016 H/o HTN 10/14/2013 07/06/2022 Overview: Currently normotensive. On BB, IV lasix- will change to po at discharge. Pneumoperitoneum 10/10/2013 04/30/2014 Overview: CXR: Pneumoperitoneum noted under right hemidaphragm. D/w CTS and Cards. Pt asymptomatic. No fevers or tachycardia. Denies any abdominal pain. Improving Diaphragmatic eventration 10/10/2013 SUMMARY 10/10/2013 06/16/2016 Overview: Indication for procedure: AI and , progressive SOB LVEF: 52% RVF: Normal Pacing wires: No Cath: nml Surgeries: 10/08/2013 Redo sternotomy: AVR (#21 [place] mechanical valve) PMHx: HTN, HPL, Asthma, GERD, Anxiety, Depression, hypothyroidism OR Course: Uncomplicated Unit Course: Mod. LVH with apparent volume responsiveness (hemodynamics seemed best with CVP approx 15 and PAD approx 20). DVT prophylaxis: Encourage increased activity, SHAWN hose. Pain following surgery or procedure 10/08/2013 10/14/2013 Overview: Pt w/multiple medication allergies. Reports adequate pain control on current regimen. Lidoderm patches discontinued and steroids are being tapered (started prophylactically for adhesive allergy). Will uptitrate regimen as needed. Hyperchloremic metabolic acidosis 10/08/2013 10/09/2013 Overview: 10/08/13 - slightly acidotic with elevated chloride. Anion pina = +14, delta-delta = -7. No hx or s/s of impaired renal function. Will continue to monitor for now, with plan to treat if hyperchloremia/acidosis persists or worsens Atelectasis/FVO/Pleural effusions 10/08/2013 04/30/2014 Overview: On RA. Wt 2.1 kg above pre-op. CXR: b/l atelectasis. Small effusions. Cont lasix for aggressive diuresis. Plan to continue home bronchodilators, Enc OOB, amb, C&DB, PEP. Mechanically assisted ventilation 10/07/2013 10/08/2013 Overview: 10/07/2013 Residual anesthesia still on board. Will WTE once fully awake and appropriate extubation criteria met, including adequate hemostasis. Acute blood loss anemia 10/07/2013 10/08/2013 Overview: 10/07/2013 Intraop blood loss with last intraop Hgb of 10.4 Level is adequate for oxygen delivery. Presently minimal need for vasoactive hemodynamic support. Plan Monitor closely for additional bleeding or coagulopathy Fluid resuscitation as needed Consider blood products if acute decompensation or further bleeding, or with Hgb < 7. 10/09/13 - H/H stable, will continue to monitor Cardiac insufficiency follow ing cardiac surgery 10/07/2013 10/09/2013 Overview: 10/07/2013 Immediately postop, needs low dose inotropic support with epinephrine as well as fluid resuscitation to ensure euvolemia (given her LVH and stage 2 diastolic dysfunction). Wean epi as tolerated. Avoid tachycardia 10/08/13 - wean Epi gtt, high fluid balance - begin lasix Stress hyperglycemia 10/07/2013 017 Overview: No hx of DM. Will continue SSI to keep glucose < 160 in post-op period. Tapering steroids. Discharge Planning 10/06/2013 4 Overview: Discharge today 10.14.2013. Lives in [facility] with . Scheduled appointment with [place] [facility] at 10:30 on [address] Kim at 11:30 on 10.16.2013. H/o Anxiety 10/06/2013 12/19/2016 Overview: Hx of anxiety. Takes ativan BID at home. Mood stable. Plan to continue as an inpatient and increase dose as needed ASA CLASS II 11/25/2002 11/06/2011 Aortic valve disorder 2016 Overview: Dr. Mckay documented as of this encounter (statuses as of 06/28/2023) [facility] of Past illness Narrative* Problem Noted Date Diagnosed Date Resolved Date Pseudopolyp of ascending col on without complication 05/15/2017 08/31/2020 Microscopic hematuria 05/17/20162020 Angiomyolipoma 05/17/2016 08/31/2020 Overview: Unchanged on recent ct scan Hyperdense renal cyst 05/17/20162021 Overview: Unchanged on recent ct scan Acute right-sided low back p ain with right-sided sciatica 03/23/2016 12/19/2016 H/o HTN 10/14/2013 07/06/2022 Overview: Currently normotensive. On BB, IV lasix- will change to po at discharge. Pneumoperitoneum 10/10/2013 04/30/2014 Overview: CXR: Pneumoperitoneum noted under right hemidaphragm. D/w CTS and Cards. Pt asymptomatic. No fevers or tachycardia. Denies any abdominal pain. Improving Diaphragmatic eventration 10/10/2013 SUMMARY 10/10/2013 06/16/2016 Overview: Indication for procedure: AI and , progressive SOB LVEF: 52% RVF: Normal Pacing wires: No Cath: nml Surgeries: 10/08/2013 Redo sternotomy: AVR (#21 [place] mechanical valve) PMHx: HTN, HPL, Asthma, GERD, Anxiety, Depression, hypothyroidism OR Course: Uncomplicated Unit Course: Mod. LVH with apparent volume responsiveness (hemodynamics seemed best with CVP approx 15 and PAD approx 20). DVT prophylaxis: Encourage increased activity, SHAWN hose. Pain following surgery or procedure 10/08/2013 10/14/2013 Overview: Pt w/multiple medication allergies. Reports adequate pain control on current regimen. Lidoderm patches discontinued and steroids are being tapered (started prophylactically for adhesive allergy). Will uptitrate regimen as needed. Hyperchloremic metabolic acidosis 10/08/2013 10/09/2013 Overview: 10/08/13 - slightly acidotic with elevated chloride. Anion pina = +14, delta-delta = -7. No hx or s/s of impaired renal function. Will continue to monitor for now, with plan to treat if hyperchloremia/acidosis persists or worsens Atelectasis/FVO/Pleural effusions 10/08/2013 04/30/2014 Overview: On RA. Wt 2.1 kg above pre-op. CXR: b/l atelectasis. Small effusions. Cont lasix for aggressive diuresis. Plan to continue home bronchodilators, Enc OOB, amb, C&DB, PEP. Mechanically assisted ventilation 10/07/2013 10/08/2013 Overview: 10/07/2013 Residual anesthesia still on board. Will WTE once fully awake and appropriate extubation criteria met, including adequate hemostasis. Acute blood loss anemia 10/07/2013 10/0 08/2013 Overview: 10/07/2013 Intraop blood loss with last intraop Hgb of 10.4 Level is adequate for oxygen delivery. Presently minimal need for vasoactive hemodynamic support. Plan Monitor closely for additional bleeding or coagulopathy Fluid resuscitation as needed Consider blood products if acute decompensation or further bleeding, or with Hgb < 7. 10/09/13 - H/H stable, will continue to monitor Cardiac insufficiency follow ing cardiac surgery 10/07/2013 10/09/2013 Overview: 10/07/2013 Immediately postop, needs low dose inotropic support with epinephrine as well as fluid resuscitation to ensure euvolemia (given her LVH and stage 2 diastolic dysfunction). Wean epi as tolerated. Avoid tachycardia 10/08/13 - wean Epi gtt, high fluid balance - begin lasix Stress hyperglycemia 10/07/2013 017 Overview: No hx of DM. Will continue SSI to keep glucose < 160 in post-op period. Tapering steroids. Discharge Planning 10/06/2013 06/ 4 Overview: Discharge today 10.14.2013. Lives in [facility] with . Scheduled appointment with [place] [facility] at 10:30 on 10.[address] Kim at 11:30 on 10.16.2013. H/o Anxiety 10/06/2013 12/19/2016 Overview: Hx of anxiety. Takes ativan BID at home. Mood stable. Plan to continue as an inpatient and increase dose as needed ASA CLASS II 11/25/2002 11/06/2011 Aortic valve disorder 2016 Overview: Dr. Mckay documented as of this encounter (statuses as of 06/29/2023) [facility] History of Past illness Narrative* Problem Noted Date Diagnosed Date Resolved Date Pseudopolyp of ascending col on without complication 05/15/2017 08/31/2020 Microscopic hematuria 05/17/20162020 Angiomyolipoma 05/17/2016 08/31/2020 Overview: Unchanged on recent ct scan Hyperdense renal cyst 05/17/20162021 Overview: Unchanged on recent ct scan Acute right-sided low back p ain with right-sided sciatica 03/23/2016 12/19/2016 H/o HTN 10/14/2013 07/06/2022 Overview: Currently normotensive. On BB, IV lasix- will change to po at discharge. Pneumoperitoneum 10/10/2013 04/30/2014 Overview: CXR: Pneumoperitoneum noted under right hemidaphragm. D/w CTS and Cards. Pt asymptomatic. No fevers or tachycardia. Denies any abdominal pain. Improving Diaphragmatic eventration 10/10/2013 SUMMARY 10/10/2013 06/16/2016 Overview: Indication for procedure: AI and , progressive SOB LVEF: 52% RVF: Normal Pacing wires: No Cath: nml Surgeries: 10/08/2013 Redo sternotomy: AVR (#21 Galo mechanical valve) PMHx: HTN, HPL, Asthma, GERD, Anxiety, Depression, hypothyroidism OR Course: Uncomplicated Unit Course: Mod. LVH with apparent volume responsiveness (hemodynamics seemed best with CVP approx 15 and PAD approx 20). DVT prophylaxis: Encourage increased activity, SHAWN hose. Pain following surgery or procedure 10/08/2013 10/14/2013 Overview: Pt w/multiple medication allergies. Reports adequate pain control on current regimen. Lidoderm patches discontinued and steroids are being tapered (started prophylactically for adhesive allergy). Will uptitrate regimen as needed. Hyperchloremic metabolic acidosis 10/08/2013 10/09/2013 Overview: 10/08/13 - slightly acidotic with elevated chloride. Anion pina = +14, delta-delta = -7. No hx or s/s of impaired renal function. Will continue to monitor for now, with plan to treat if hyperchloremia/acidosis persists or worsens Atelectasis/FVO/Pleural effusions 10/08/2013 04/30/2014 Overview: On RA. Wt 2.1 kg above pre-op. CXR: b/l atelectasis. Small effusions. Cont lasix for aggressive diuresis. Plan to continue home bronchodilators, Enc OOB, amb, C&DB, PEP. Mechanically assisted ventilation 10/07/2013 10/08/2013 Overview: 10/07/2013 Residual anesthesia still on board. Will WTE once fully awake and appropriate extubation criteria met, including adequate hemostasis. Acute blood loss anemia 10/07/2013 100 08/2013 Overview: 10/07/2013 Intraop blood loss with last intraop Hgb of 10.4 Level is adequate for oxygen delivery. Presently minimal need for vasoactive hemodynamic support. Plan Monitor closely for additional bleeding or coagulopathy Fluid resuscitation as needed Consider blood products if acute decompensation or further bleeding, or with Hgb < 7. 10/09/13 - H/H stable, will continue to monitor Cardiac insufficiency follow ing cardiac surgery 10/07/2013 10/09/2013 Overview: 10/07/2013 Immediately postop, needs low dose inotropic support with epinephrine as well as fluid resuscitation to ensure euvolemia (given her LVH and stage 2 diastolic dysfunction). Wean epi as tolerated. Avoid tachycardia 10/08/13 - wean Epi gtt, high fluid balance - begin lasix Stress hyperglycemia 10/07/2013 017 Overview: No hx of DM. Will continue SSI to keep glucose < 160 in post-op period. Tapering steroids. Discharge Planning 10/06/2013 06// 4 Overview: Discharge today 10.14.2013. Lives in [facility] with . Scheduled appointment with [place] [facility] at 10:30 on [address] Kim at 11:30 on 10.16.2013. H/o Anxiety 10/06/2013 12/19/2016 Overview: Hx of anxiety. Takes ativan BID at home. Mood stable. Plan to continue as an inpatient and increase dose as needed ASA CLASS II 11/25/2002 11/06/2011 Aortic valve disorder 2016 Overview: Dr. Mckay documented as of this encounter (statuses as of 08/31/2023) [facility] History of Past illness Narrative* Problem Noted Date Diagnosed Date Resolved Date Pseudopolyp of ascending col on without complication 05/15/2017 08/31/2020 Microscopic hematuria 05/17/20162020 Angiomyolipoma 05/17/2016 08/31/2020 Overview: Unchanged on recent ct scan Hyperdense renal cyst 05/17/20162021 Overview: Unchanged on recent ct scan Acute right-sided low back p ain with right-sided sciatica 03/23/2016 12/19/2016 H/o HTN 10/14/2013 07/06/2022 Overview: Currently normotensive. On BB, IV lasix- will change to po at discharge. Pneumoperitoneum 10/10/2013 04/30/2014 Overview: CXR: Pneumoperitoneum noted under right hemidaphragm. D/w CTS and Cards. Pt asymptomatic. No fevers or tachycardia. Denies any abdominal pain. Improving Diaphragmatic eventration 10/10/2013 SUMMARY 10/10/2013 06/16/2016 Overview: Indication for procedure: AI and , progressive SOB LVEF: 52% RVF: Normal Pacing wires: No Cath: nml Surgeries: 10/08/2013 Redo sternotomy: AVR (#21 Sunset mechanical valve) PMHx: HTN, HPL, Asthma, GERD, Anxiety, Depression, hypothyroidism OR Course: Uncomplicated Unit Course: Mod. LVH with apparent volume responsiveness (hemodynamics seemed best with CVP approx 15 and PAD approx 20). DVT prophylaxis: Encourage increased activity, SHAWN hose. Pain following surgery or procedure 10/08/2013 10/14/2013 Overview: Pt w/multiple medication allergies. Reports adequate pain control on current regimen. Lidoderm patches discontinued and steroids are being tapered (started prophylactically for adhesive allergy). Will uptitrate regimen as needed. Hyperchloremic metabolic acidosis 10/08/2013 10/09/2013 Overview: 10/08/13 - slightly acidotic with elevated chloride. Anion pina = +14, delta-delta = -7. No hx or s/s of impaired renal function. Will continue to monitor for now, with plan to treat if hyperchloremia/acidosis persists or worsens Atelectasis/FVO/Pleural effusions 10/08/2013 04/30/2014 Overview: On RA. Wt 2.1 kg above pre-op. CXR: b/l atelectasis. Small effusions. Cont lasix for aggressive diuresis. Plan to continue home bronchodilators, Enc OOB, amb, C&DB, PEP. Mechanically assisted ventilation 10/07/2013 10/08/2013 Overview: 10/07/2013 Residual anesthesia still on board. Will WTE once fully awake and appropriate extubation criteria met, including adequate hemostasis. Acute blood loss anemia 10/07/201308/2013 Overview: 10/07/2013 Intraop blood loss with last intraop Hgb of 10.4 Level is adequate for oxygen delivery. Presently minimal need for vasoactive hemodynamic support. Plan Monitor closely for additional bleeding or coagulopathy Fluid resuscitation as needed Consider blood products if acute decompensation or further bleeding, or with Hgb < 7. 10/09/13 - H/H stable, will continue to monitor Cardiac insufficiency follow ing cardiac surgery 10/07/2013 10/09/2013 Overview: 10/07/2013 Immediately postop, needs low dose inotropic support with epinephrine as well as fluid resuscitation to ensure euvolemia (given her LVH and stage 2 diastolic dysfunction). Wean epi as tolerated. Avoid tachycardia 10/08/13 - wean Epi gtt, high fluid balance - begin lasix Stress hyperglycemia 10/07/201312/19/2 017 Overview: No hx of DM. Will continue SSI to keep glucose < 160 in post-op period. Tapering steroids. Discharge Planning 10/06/2013 4 Overview: Discharge today 10.14.2013. Lives in [facility] with . Scheduled appointment with [place] [facility] at 10:30 on 10.[address] Kim at 11:30 on 10.16.2013. H/o Anxiety 10/06/2013 12/19/2016 Overview: Hx of anxiety. Takes ativan BID at home. Mood stable. Plan to continue as an inpatient and increase dose as needed ASA CLASS II 11/25/2002 11/06/2011 Aortic valve disorder 2016 Overview: Dr. Mckay documented as of this encounter (statuses as of 09/07/2023) [facility] History of Past illness Narrative* Problem Noted Date Diagnosed Date Resolved Date Pseudopolyp of ascending col on without complication 05/15/2017 08/31/2020 Microscopic hematuria 05/17/20162020 Angiomyolipoma 05/17/2016 08/31/2020 Overview: Unchanged on recent ct scan Hyperdense renal cyst 05/17/20162021 Overview: Unchanged on recent ct scan Acute right-sided low back p ain with right-sided sciatica 03/23/2016 12/19/2016 H/o HTN 10/14/2013 07/06/2022 Overview: Currently normotensive. On BB, IV lasix- will change to po at discharge. Pneumoperitoneum 10/10/2013 04/30/2014 Overview: CXR: Pneumoperitoneum noted under right hemidaphragm. D/w CTS and Cards. Pt asymptomatic. No fevers or tachycardia. Denies any abdominal pain. Improving Diaphragmatic eventration 10/10/2013 SUMMARY 10/10/2013 06/16/2016 Overview: Indication for procedure: AI and , progressive SOB LVEF: 52% RVF: Normal Pacing wires: No Cath: nml Surgeries: 10/08/2013 Redo sternotomy: AVR (#21 Galo mechanical valve) PMHx: HTN, HPL, Asthma, GERD, Anxiety, Depression, hypothyroidism OR Course: Uncomplicated Unit Course: Mod. LVH with apparent volume responsiveness (hemodynamics seemed best with CVP approx 15 and PAD approx 20). DVT prophylaxis: Encourage increased activity, SHAWN hose. Pain following surgery or procedure 10/08/2013 10/14/2013 Overview: Pt w/multiple medication allergies. Reports adequate pain control on current regimen. Lidoderm patches discontinued and steroids are being tapered (started prophylactically for adhesive allergy). Will uptitrate regimen as needed. Hyperchloremic metabolic acidosis 10/08/2013 10/09/2013 Overview: 10/08/13 - slightly acidotic with elevated chloride. Anion pina = +14, delta-delta = -7. No hx or s/s of impaired renal function. Will continue to monitor for now, with plan to treat if hyperchloremia/acidosis persists or worsens Atelectasis/FVO/Pleural effusions 10/08/2013 04/30/2014 Overview: On RA. Wt 2.1 kg above pre-op. CXR: b/l atelectasis. Small effusions. Cont lasix for aggressive diuresis. Plan to continue home bronchodilators, Enc OOB, amb, C&DB, PEP. Mechanically assisted ventilation 10/07/2013 10/08/2013 Overview: 10/07/2013 Residual anesthesia still on board. Will WTE once fully awake and appropriate extubation criteria met, including adequate hemostasis. Acute blood loss anemia 10/07/2013 10/08/2013 Overview: 10/07/2013 Intraop blood loss with last intraop Hgb of 10.4 Level is adequate for oxygen delivery. Presently minimal need for vasoactive hemodynamic support. Plan Monitor closely for additional bleeding or coagulopathy Fluid resuscitation as needed Consider blood products if acute decompensation or further bleeding, or with Hgb < 7. 10/09/13 - H/H stable, will continue to monitor Cardiac insufficiency follow ing cardiac surgery 10/07/2013 10/09/2013 Overview: 10/07/2013 Immediately postop, needs low dose inotropic support with epinephrine as well as fluid resuscitation to ensure euvolemia (given her LVH and stage 2 diastolic dysfunction). Wean epi as tolerated. Avoid tachycardia 10/08/13 - wean Epi gtt, high fluid balance - begin lasix Stress hyperglycemia 10/07/2013 017 Overview: No hx of DM. Will continue SSI to keep glucose < 160 in post-op period. Tapering steroids. Discharge Planning 10/06/2013 4 Overview: Discharge today 10.14.2013. Lives in [facility] with . Scheduled appointment with [place] [facility] at 10:30 on 10.[address] Kim at 11:30 on 10.16.2013. H/o Anxiety 10/06/2013 12/19/2016 Overview: Hx of anxiety. Takes ativan BID at home. Mood stable. Plan to continue as an inpatient and increase dose as needed ASA CLASS II 11/25/2002 11/06/2011 Aortic valve disorder 2016 Overview: Dr. Mckay documented as of this encounter (statuses as of 09/11/2023) [facility] History of Past illness Narrative* Problem Noted Date Diagnosed Date Resolved Date Pseudopolyp of ascending col on without complication 05/15/2017 08/31/2020 Microscopic hematuria 05/17/20162020 Angiomyolipoma 05/17/2016 08/31/2020 Overview: Unchanged on recent ct scan Hyperdense renal cyst 05/17/20162021 Overview: Unchanged on recent ct scan Acute right-sided low back p ain with right-sided sciatica 03/23/2016 12/19/2016 H/o HTN 10/14/2013 07/06/2022 Overview: Currently normotensive. On BB, IV lasix- will change to po at discharge. Pneumoperitoneum 10/10/2013 04/30/2014 Overview: CXR: Pneumoperitoneum noted under right hemidaphragm. D/w CTS and Cards. Pt asymptomatic. No fevers or tachycardia. Denies any abdominal pain. Improving Diaphragmatic eventration 10/10/2013 SUMMARY 10/10/2013 06/16/2016 Overview: Indication for procedure: AI and , progressive SOB LVEF: 52% RVF: Normal Pacing wires: No Cath: nml Surgeries: 10/08/2013 Redo sternotomy: AVR (#21 Galo mechanical valve) PMHx: HTN, HPL, Asthma, GERD, Anxiety, Depression, hypothyroidism OR Course: Uncomplicated Unit Course: Mod. LVH with apparent volume responsiveness (hemodynamics seemed best with CVP approx 15 and PAD approx 20). DVT prophylaxis: Encourage increased activity, SHAWN hose. Pain following surgery or procedure 10/08/2013 10/14/2013 Overview: Pt w/multiple medication allergies. Reports adequate pain control on current regimen. Lidoderm patches discontinued and steroids are being tapered (started prophylactically for adhesive allergy). Will uptitrate regimen as needed. Hyperchloremic metabolic acidosis 10/08/2013 10/09/2013 Overview: 10/08/13 - slightly acidotic with elevated chloride. Anion pina = +14, delta-delta = -7. No hx or s/s of impaired renal function. Will continue to monitor for now, with plan to treat if hyperchloremia/acidosis persists or worsens Atelectasis/FVO/Pleural effusions 10/08/2013 04/30/2014 Overview: On RA. Wt 2.1 kg above pre-op. CXR: b/l atelectasis. Small effusions. Cont lasix for aggressive diuresis. Plan to continue home bronchodilators, Enc OOB, amb, C&DB, PEP. Mechanically assisted ventilation 10/07/2013 10/08/2013 Overview: 10/07/2013 Residual anesthesia still on board. Will WTE once fully awake and appropriate extubation criteria met, including adequate hemostasis. Acute blood loss anemia 10/07/2013 10/0 08/2013 Overview: 10/07/2013 Intraop blood loss with last intraop Hgb of 10.4 Level is adequate for oxygen delivery. Presently minimal need for vasoactive hemodynamic support. Plan Monitor closely for additional bleeding or coagulopathy Fluid resuscitation as needed Consider blood products if acute decompensation or further bleeding, or with Hgb < 7. 10/09/13 - H/H stable, will continue to monitor Cardiac insufficiency follow ing cardiac surgery 10/07/2013 10/09/2013 Overview: 10/07/2013 Immediately postop, needs low dose inotropic support with epinephrine as well as fluid resuscitation to ensure euvolemia (given her LVH and stage 2 diastolic dysfunction). Wean epi as tolerated. Avoid tachycardia 10/08/13 - wean Epi gtt, high fluid balance - begin lasix Stress hyperglycemia 10/07/2013 017 Overview: No hx of DM. Will continue SSI to keep glucose < 160 in post-op period. Tapering steroids. Discharge Planning 10/06/2013 06/06/201 4 Overview: Discharge today 10.14.2013. Lives in [facility] with . Scheduled appointment with [place] [facility] at 10:30 on 10.[address] Kim at 11:30 on 10.16.2013. H/o Anxiety 10/06/2013 12/19/2016 Overview: Hx of anxiety. Takes ativan BID at home. Mood stable. Plan to continue as an inpatient and increase dose as needed ASA CLASS II 11/25/2002 11/06/2011 Aortic valve disorder 2016 Overview: Dr. Mckay documented as of this encounter (statuses as of 09/13/2023) [facility] History of Past illness Narrative* Problem Noted Date Diagnosed Date Resolved Date Pseudopolyp of ascending col on without complication 05/15/2017 08/31/2020 Microscopic hematuria 05/17/20162020 Angiomyolipoma 05/17/2016 08/31/2020 Overview: Unchanged on recent ct scan Hyperdense renal cyst 05/17/20162021 Overview: Unchanged on recent ct scan Acute right-sided low back p ain with right-sided sciatica 03/23/2016 12/19/2016 H/o HTN 10/14/2013 07/06/2022 Overview: Currently normotensive. On BB, IV lasix- will change to po at discharge. Pneumoperitoneum 10/10/2013 04/30/2014 Overview: CXR: Pneumoperitoneum noted under right hemidaphragm. D/w CTS and Cards. Pt asymptomatic. No fevers or tachycardia. Denies any abdominal pain. Improving Diaphragmatic eventration 10/10/2013 SUMMARY 10/10/2013 06/16/2016 Overview: Indication for procedure: AI and , progressive SOB LVEF: 52% RVF: Normal Pacing wires: No Cath: nml Surgeries: 10/08/2013 Redo sternotomy: AVR (#21 Galo mechanical valve) PMHx: HTN, HPL, Asthma, GERD, Anxiety, Depression, hypothyroidism OR Course: Uncomplicated Unit Course: Mod. LVH with apparent volume responsiveness (hemodynamics seemed best with CVP approx 15 and PAD approx 20). DVT prophylaxis: Encourage increased activity, SHAWN hose. Pain following surgery or procedure 10/08/2013 10/14/2013 Overview: Pt w/multiple medication allergies. Reports adequate pain control on current regimen. Lidoderm patches discontinued and steroids are being tapered (started prophylactically for adhesive allergy). Will uptitrate regimen as needed. Hyperchloremic metabolic acidosis 10/08/2013 10/09/2013 Overview: 10/08/13 - slightly acidotic with elevated chloride. Anion pina = +14, delta-delta = -7. No hx or s/s of impaired renal function. Will continue to monitor for now, with plan to treat if hyperchloremia/acidosis persists or worsens Atelectasis/FVO/Pleural effusions 10/08/2013 04/30/2014 Overview: On RA. Wt 2.1 kg above pre-op. CXR: b/l atelectasis. Small effusions. Cont lasix for aggressive diuresis. Plan to continue home bronchodilators, Enc OOB, amb, C&DB, PEP. Mechanically assisted ventilation 10/07/2013 10/08/2013 Overview: 10/07/2013 Residual anesthesia still on board. Will WTE once fully awake and appropriate extubation criteria met, including adequate hemostasis. Acute blood loss anemia 10/07/2013 10/0 08/2013 Overview: 10/07/2013 Intraop blood loss with last intraop Hgb of 10.4 Level is adequate for oxygen delivery. Presently minimal need for vasoactive hemodynamic support. Plan Monitor closely for additional bleeding or coagulopathy Fluid resuscitation as needed Consider blood products if acute decompensation or further bleeding, or with Hgb < 7. 10/09/13 - H/H stable, will continue to monitor Cardiac insufficiency follow ing cardiac surgery 10/07/2013 10/09/2013 Overview: 10/07/2013 Immediately postop, needs low dose inotropic support with epinephrine as well as fluid resuscitation to ensure euvolemia (given her LVH and stage 2 diastolic dysfunction). Wean epi as tolerated. Avoid tachycardia 10/08/13 - wean Epi gtt, high fluid balance - begin lasix Stress hyperglycemia 10/07/2013 05/2 017 Overview: No hx of DM. Will continue SSI to keep glucose < 160 in post-op period. Tapering steroids. Discharge Planning 10/06/2013 06/06/201 4 Overview: Discharge today 10.14.2013. Lives in [facility] with . Scheduled appointment with [place] [facility] at 10:30 on [address] Kim at 11:30 on 10.16.2013. H/o Anxiety 10/06/2013 12/19/2016 Overview: Hx of anxiety. Takes ativan BID at home. Mood stable. Plan to continue as an inpatient and increase dose as needed ASA CLASS II 11/25/2002 11/06/2011 Aortic valve disorder 2016 Overview: Dr. Mckay documented as of this encounter (statuses as of 09/13/2023) [facility] of Past illness Narrative* Problem Noted Date Diagnosed Date Resolved Date Pseudopolyp of ascending col on without complication 05/15/2017 08/31/2020 Microscopic hematuria 05/17/20162020 Angiomyolipoma 05/17/2016 08/31/2020 Overview: Unchanged on recent ct scan Hyperdense renal cyst 05/17/20162021 Overview: Unchanged on recent ct scan Acute right-sided low back p ain with right-sided sciatica 03/23/2016 12/19/2016 H/o HTN 10/14/2013 07/06/2022 Overview: Currently normotensive. On BB, IV lasix- will change to po at discharge. Pneumoperitoneum 10/10/2013 04/30/2014 Overview: CXR: Pneumoperitoneum noted under right hemidaphragm. D/w CTS and Cards. Pt asymptomatic. No fevers or tachycardia. Denies any abdominal pain. Improving Diaphragmatic eventration 10/10/2013 SUMMARY 10/10/2013 06/16/2016 Overview: Indication for procedure: AI and , progressive SOB LVEF: 52% RVF: Normal Pacing wires: No Cath: nml Surgeries: 10/08/2013 Redo sternotomy: AVR (#21 [place]set mechanical valve) PMHx: HTN, HPL, Asthma, GERD, Anxiety, Depression, hypothyroidism OR Course: Uncomplicated Unit Course: Mod. LVH with apparent volume responsiveness (hemodynamics seemed best with CVP approx 15 and PAD approx 20). DVT prophylaxis: Encourage increased activity, SHAWN hose. Pain following surgery or procedure 10/08/2013 10/14/2013 Overview: Pt w/multiple medication allergies. Reports adequate pain control on current regimen. Lidoderm patches discontinued and steroids are being tapered (started prophylactically for adhesive allergy). Will uptitrate regimen as needed. Hyperchloremic metabolic acidosis 10/08/2013 10/09/2013 Overview: 10/08/13 - slightly acidotic with elevated chloride. Anion pina = +14, delta-delta = -7. No hx or s/s of impaired renal function. Will continue to monitor for now, with plan to treat if hyperchloremia/acidosis persists or worsens Atelectasis/FVO/Pleural effusions 10/08/2013 04/30/2014 Overview: On RA. Wt 2.1 kg above pre-op. CXR: b/l atelectasis. Small effusions. Cont lasix for aggressive diuresis. Plan to continue home bronchodilators, Enc OOB, amb, C&DB, PEP. Mechanically assisted ventilation 10/07/2013 10/08/2013 Overview: 10/07/2013 Residual anesthesia still on board. Will WTE once fully awake and appropriate extubation criteria met, including adequate hemostasis. Acute blood loss anemia 10/07/201308/2013 Overview: 10/07/2013 Intraop blood loss with last intraop Hgb of 10.4 Level is adequate for oxygen delivery. Presently minimal need for vasoactive hemodynamic support. Plan Monitor closely for additional bleeding or coagulopathy Fluid resuscitation as needed Consider blood products if acute decompensation or further bleeding, or with Hgb < 7. 10/09/13 - H/H stable, will continue to monitor Cardiac insufficiency follow ing cardiac surgery 10/07/2013 10/09/2013 Overview: 10/07/2013 Immediately postop, needs low dose inotropic support with epinephrine as well as fluid resuscitation to ensure euvolemia (given her LVH and stage 2 diastolic dysfunction). Wean epi as tolerated. Avoid tachycardia 10/08/13 - wean Epi gtt, high fluid balance - begin lasix Stress hyperglycemia 10/07/2013 017 Overview: No hx of DM. Will continue SSI to keep glucose < 160 in post-op period. Tapering steroids. Discharge Planning 10/06/2013 4 Overview: Discharge today 10.14.2013. Lives in [facility] with . Scheduled appointment with [place] [facility] at 10:30 on [address] Kim at 11:30 on 10.16.2013. H/o Anxiety 10/06/2013 12/19/2016 Overview: Hx of anxiety. Takes ativan BID at home. Mood stable. Plan to continue as an inpatient and increase dose as needed ASA CLASS II 11/25/2002 11/06/2011 Aortic valve disorder 2016 Overview: Dr. Mckay documented as of this encounter (statuses as of 09/20/2023) [facility] History of Past illness Narrative* Problem Noted Date Diagnosed Date Resolved Date Pseudopolyp of ascending col on without complication 05/15/2017 08/31/2020 Microscopic hematuria 05/17/20162020 Angiomyolipoma 05/17/2016 08/31/2020 Overview: Unchanged on recent ct scan Hyperdense renal cyst 05/17/20162021 Overview: Unchanged on recent ct scan Acute right-sided low back p ain with right-sided sciatica 03/23/2016 12/19/2016 H/o HTN 10/14/2013 07/06/2022 Overview: Currently normotensive. On BB, IV lasix- will change to po at discharge. Pneumoperitoneum 10/10/2013 04/30/2014 Overview: CXR: Pneumoperitoneum noted under right hemidaphragm. D/w CTS and Cards. Pt asymptomatic. No fevers or tachycardia. Denies any abdominal pain. Improving Diaphragmatic eventration 10/10/2013 SUMMARY 10/10/2013 06/16/2016 Overview: Indication for procedure: AI and , progressive SOB LVEF: 52% RVF: Normal Pacing wires: No Cath: nml Surgeries: 10/08/2013 Redo sternotomy: AVR (#21 Galo mechanical valve) PMHx: HTN, HPL, Asthma, GERD, Anxiety, Depression, hypothyroidism OR Course: Uncomplicated Unit Course: Mod. LVH with apparent volume responsiveness (hemodynamics seemed best with CVP approx 15 and PAD approx 20). DVT prophylaxis: Encourage increased activity, SHAWN hose. Pain following surgery or procedure 10/08/2013 10/14/2013 Overview: Pt w/multiple medication allergies. Reports adequate pain control on current regimen. Lidoderm patches discontinued and steroids are being tapered (started prophylactically for adhesive allergy). Will uptitrate regimen as needed. Hyperchloremic metabolic acidosis 10/08/2013 10/09/2013 Overview: 10/08/13 - slightly acidotic with elevated chloride. Anion pina = +14, delta-delta = -7. No hx or s/s of impaired renal function. Will continue to monitor for now, with plan to treat if hyperchloremia/acidosis persists or worsens Atelectasis/FVO/Pleural effusions 10/08/2013 04/30/2014 Overview: On RA. Wt 2.1 kg above pre-op. CXR: b/l atelectasis. Small effusions. Cont lasix for aggressive diuresis. Plan to continue home bronchodilators, Enc OOB, amb, C&DB, PEP. Mechanically assisted ventilation 10/07/2013 10/08/2013 Overview: 10/07/2013 Residual anesthesia still on board. Will WTE once fully awake and appropriate extubation criteria met, including adequate hemostasis. Acute blood loss anemia 10/07/20132014 Overview: 10/07/2013 Intraop blood loss with last intraop Hgb of 10.4 Level is adequate for oxygen delivery. Presently minimal need for vasoactive hemodynamic support. Plan Monitor closely for additional bleeding or coagulopathy Fluid resuscitation as needed Consider blood products if acute decompensation or further bleeding, or with Hgb < 7. 10/09/13 - H/H stable, will continue to monitor Cardiac insufficiency follow ing cardiac surgery 10/07/2013 10/09/2013 Overview: 10/07/2013 Immediately postop, needs low dose inotropic support with epinephrine as well as fluid resuscitation to ensure euvolemia (given her LVH and stage 2 diastolic dysfunction). Wean epi as tolerated. Avoid tachycardia 10/08/13 - wean Epi gtt, high fluid balance - begin lasix Stress hyperglycemia 10/07/2013 017 Overview: No hx of DM. Will continue SSI to keep glucose < 160 in post-op period. Tapering steroids. Discharge Planning 10/06/2013 4 Overview: Discharge today 10.14.2013. Lives in [facility] with . Scheduled appointment with [place] [facility] at 10:30 on 10.[address] Kim at 11:30 on 10.16.2013. H/o Anxiety 10/06/2013 12/19/2016 Overview: Hx of anxiety. Takes ativan BID at home. Mood stable. Plan to continue as an inpatient and increase dose as needed ASA CLASS II 11/25/2002 11/06/2011 Aortic valve disorder 2016 Overview: Dr. Mckay documented as of this encounter (statuses as of 09/28/2023) [facility] History of Past illness Narrative* Problem Noted Date Diagnosed Date Resolved Date Pseudopolyp of ascending col on without complication 05/15/2017 08/31/2020 Microscopic hematuria 05/17/20162020 Angiomyolipoma 05/17/2016 08/31/2020 Overview: Unchanged on recent ct scan Hyperdense renal cyst 05/17/20162021 Overview: Unchanged on recent ct scan Acute right-sided low back p ain with right-sided sciatica 03/23/2016 12/19/2016 H/o HTN 10/14/2013 07/06/2022 Overview: Currently normotensive. On BB, IV lasix- will change to po at discharge. Pneumoperitoneum 10/10/2013 04/30/2014 Overview: CXR: Pneumoperitoneum noted under right hemidaphragm. D/w CTS and Cards. Pt asymptomatic. No fevers or tachycardia. Denies any abdominal pain. Improving Diaphragmatic eventration 10/10/2013 SUMMARY 10/10/2013 06/16/2016 Overview: Indication for procedure: AI and , progressive SOB LVEF: 52% RVF: Normal Pacing wires: No Cath: nml Surgeries: 10/08/2013 Redo sternotomy: AVR (#21 Galo mechanical valve) PMHx: HTN, HPL, Asthma, GERD, Anxiety, Depression, hypothyroidism OR Course: Uncomplicated Unit Course: Mod. LVH with apparent volume responsiveness (hemodynamics seemed best with CVP approx 15 and PAD approx 20). DVT prophylaxis: Encourage increased activity, SHAWN hose. Pain following surgery or procedure 10/08/2013 10/14/2013 Overview: Pt w/multiple medication allergies. Reports adequate pain control on current regimen. Lidoderm patches discontinued and steroids are being tapered (started prophylactically for adhesive allergy). Will uptitrate regimen as needed. Hyperchloremic metabolic acidosis 10/08/2013 10/09/2013 Overview: 10/08/13 - slightly acidotic with elevated chloride. Anion pina = +14, delta-delta = -7. No hx or s/s of impaired renal function. Will continue to monitor for now, with plan to treat if hyperchloremia/acidosis persists or worsens Atelectasis/FVO/Pleural effusions 10/08/2013 04/30/2014 Overview: On RA. Wt 2.1 kg above pre-op. CXR: b/l atelectasis. Small effusions. Cont lasix for aggressive diuresis. Plan to continue home bronchodilators, Enc OOB, amb, C&DB, PEP. Mechanically assisted ventilation 10/07/2013 10/08/2013 Overview: 10/07/2013 Residual anesthesia still on board. Will WTE once fully awake and appropriate extubation criteria met, including adequate hemostasis. Acute blood loss anemia 10/07/2013 10/0 08/2013 Overview: 10/07/2013 Intraop blood loss with last intraop Hgb of 10.4 Level is adequate for oxygen delivery. Presently minimal need for vasoactive hemodynamic support. Plan Monitor closely for additional bleeding or coagulopathy Fluid resuscitation as needed Consider blood products if acute decompensation or further bleeding, or with Hgb < 7. 10/09/13 - H/H stable, will continue to monitor Cardiac insufficiency follow ing cardiac surgery 10/07/2013 10/09/2013 Overview: 10/07/2013 Immediately postop, needs low dose inotropic support with epinephrine as well as fluid resuscitation to ensure euvolemia (given her LVH and stage 2 diastolic dysfunction). Wean epi as tolerated. Avoid tachycardia 10/08/13 - wean Epi gtt, high fluid balance - begin lasix Stress hyperglycemia 10/07/2013 017 Overview: No hx of DM. Will continue SSI to keep glucose < 160 in post-op period. Tapering steroids. Discharge Planning 10/06/2013 06//201 4 Overview: Discharge today 10.14.2013. Lives in [facility] with . Scheduled appointment with [place] [facility] at 10:30 on [address] Kim at 11:30 on 10.16.2013. H/o Anxiety 10/06/2013 12/19/2016 Overview: Hx of anxiety. Takes ativan BID at home. Mood stable. Plan to continue as an inpatient and increase dose as needed ASA CLASS II 11/25/2002 11/06/2011 Aortic valve disorder 2016 Overview: Dr. Mckay documented as of this encounter (statuses as of 10/08/2023) [facility] History of Past illness Narrative* Problem Noted Date Diagnosed Date Resolved Date Pseudopolyp of ascending col on without complication 05/15/2017 08/31/2020 Microscopic hematuria 05/17/20162020 Angiomyolipoma 05/17/2016 08/31/2020 Overview: Unchanged on recent ct scan Hyperdense renal cyst 05/17/20162021 Overview: Unchanged on recent ct scan Acute right-sided low back p ain with right-sided sciatica 03/23/2016 12/19/2016 H/o HTN 10/14/2013 07/06/2022 Overview: Currently normotensive. On BB, IV lasix- will change to po at discharge. Pneumoperitoneum 10/10/2013 04/30/2014 Overview: CXR: Pneumoperitoneum noted under right hemidaphragm. D/w CTS and Cards. Pt asymptomatic. No fevers or tachycardia. Denies any abdominal pain. Improving Diaphragmatic eventration 10/10/2013 SUMMARY 10/10/2013 06/16/2016 Overview: Indication for procedure: AI and , progressive SOB LVEF: 52% RVF: Normal Pacing wires: No Cath: nml Surgeries: 10/08/2013 Redo sternotomy: AVR (#21 [place] mechanical valve) PMHx: HTN, HPL, Asthma, GERD, Anxiety, Depression, hypothyroidism OR Course: Uncomplicated Unit Course: Mod. LVH with apparent volume responsiveness (hemodynamics seemed best with CVP approx 15 and PAD approx 20). DVT prophylaxis: Encourage increased activity, SHAWN hose. Pain following surgery or procedure 10/08/2013 10/14/2013 Overview: Pt w/multiple medication allergies. Reports adequate pain control on current regimen. Lidoderm patches discontinued and steroids are being tapered (started prophylactically for adhesive allergy). Will uptitrate regimen as needed. Hyperchloremic metabolic acidosis 10/08/2013 10/09/2013 Overview: 10/08/13 - slightly acidotic with elevated chloride. Anion pina = +14, delta-delta = -7. No hx or s/s of impaired renal function. Will continue to monitor for now, with plan to treat if hyperchloremia/acidosis persists or worsens Atelectasis/FVO/Pleural effusions 10/08/2013 04/30/2014 Overview: On RA. Wt 2.1 kg above pre-op. CXR: b/l atelectasis. Small effusions. Cont lasix for aggressive diuresis. Plan to continue home bronchodilators, Enc OOB, amb, C&DB, PEP. Mechanically assisted ventilation 10/07/2013 10/08/2013 Overview: 10/07/2013 Residual anesthesia still on board. Will WTE once fully awake and appropriate extubation criteria met, including adequate hemostasis. Acute blood loss anemia 10/07/201308/2013 Overview: 10/07/2013 Intraop blood loss with last intraop Hgb of 10.4 Level is adequate for oxygen delivery. Presently minimal need for vasoactive hemodynamic support. Plan Monitor closely for additional bleeding or coagulopathy Fluid resuscitation as needed Consider blood products if acute decompensation or further bleeding, or with Hgb < 7. 10/09/13 - H/H stable, will continue to monitor Cardiac insufficiency follow ing cardiac surgery 10/07/2013 10/09/2013 Overview: 10/07/2013 Immediately postop, needs low dose inotropic support with epinephrine as well as fluid resuscitation to ensure euvolemia (given her LVH and stage 2 diastolic dysfunction). Wean epi as tolerated. Avoid tachycardia 10/08/13 - wean Epi gtt, high fluid balance - begin lasix Stress hyperglycemia 10/07/2013 05/2 017 Overview: No hx of DM. Will continue SSI to keep glucose < 160 in post-op period. Tapering steroids. Discharge Planning 10/06/2013 4 Overview: Discharge today 10.14.2013. Lives in [facility] with . Scheduled appointment with [place] [facility] at 10:30 on 10.[address] Kim at 11:30 on 10.16.2013. H/o Anxiety 10/06/2013 12/19/2016 Overview: Hx of anxiety. Takes ativan BID at home. Mood stable. Plan to continue as an inpatient and increase dose as needed ASA CLASS II 11/25/2002 11/06/2011 Aortic valve disorder 2016 Overview: Dr. Mckay documented as of this encounter (statuses as of 10/10/2023) [facility] History of Past illness Narrative* Problem Noted Date Diagnosed Date Resolved Date Pseudopolyp of ascending col on without complication 05/15/2017 08/31/2020 Microscopic hematuria 05/17/20162020 Angiomyolipoma 05/17/2016 08/31/2020 Overview: Unchanged on recent ct scan Hyperdense renal cyst 05/17/20162021 Overview: Unchanged on recent ct scan Acute right-sided low back p ain with right-sided sciatica 03/23/2016 12/19/2016 H/o HTN 10/14/2013 07/06/2022 Overview: Currently normotensive. On BB, IV lasix- will change to po at discharge. Pneumoperitoneum 10/10/2013 04/30/2014 Overview: CXR: Pneumoperitoneum noted under right hemidaphragm. D/w CTS and Cards. Pt asymptomatic. No fevers or tachycardia. Denies any abdominal pain. Improving Diaphragmatic eventration 10/10/2013 SUMMARY 10/10/2013 06/16/2016 Overview: Indication for procedure: AI and , progressive SOB LVEF: 52% RVF: Normal Pacing wires: No Cath: nml Surgeries: 10/08/2013 Redo sternotomy: AVR (#21 [place]set mechanical valve) PMHx: HTN, HPL, Asthma, GERD, Anxiety, Depression, hypothyroidism OR Course: Uncomplicated Unit Course: Mod. LVH with apparent volume responsiveness (hemodynamics seemed best with CVP approx 15 and PAD approx 20). DVT prophylaxis: Encourage increased activity, SHAWN hose. Pain following surgery or procedure 10/08/2013 10/14/2013 Overview: Pt w/multiple medication allergies. Reports adequate pain control on current regimen. Lidoderm patches discontinued and steroids are being tapered (started prophylactically for adhesive allergy). Will uptitrate regimen as needed. Hyperchloremic metabolic acidosis 10/08/2013 10/09/2013 Overview: 10/08/13 - slightly acidotic with elevated chloride. Anion pina = +14, delta-delta = -7. No hx or s/s of impaired renal function. Will continue to monitor for now, with plan to treat if hyperchloremia/acidosis persists or worsens Atelectasis/FVO/Pleural effusions 10/08/2013 04/30/2014 Overview: On RA. Wt 2.1 kg above pre-op. CXR: b/l atelectasis. Small effusions. Cont lasix for aggressive diuresis. Plan to continue home bronchodilators, Enc OOB, amb, C&DB, PEP. Mechanically assisted ventilation 10/07/2013 10/08/2013 Overview: 10/07/2013 Residual anesthesia still on board. Will WTE once fully awake and appropriate extubation criteria met, including adequate hemostasis. Acute blood loss anemia 10/07/201308/2013 Overview: 10/07/2013 Intraop blood loss with last intraop Hgb of 10.4 Level is adequate for oxygen delivery. Presently minimal need for vasoactive hemodynamic support. Plan Monitor closely for additional bleeding or coagulopathy Fluid resuscitation as needed Consider blood products if acute decompensation or further bleeding, or with Hgb < 7. 10/09/13 - H/H stable, will continue to monitor Cardiac insufficiency follow ing cardiac surgery 10/07/2013 10/09/2013 Overview: 10/07/2013 Immediately postop, needs low dose inotropic support with epinephrine as well as fluid resuscitation to ensure euvolemia (given her LVH and stage 2 diastolic dysfunction). Wean epi as tolerated. Avoid tachycardia 10/08/13 - wean Epi gtt, high fluid balance - begin lasix Stress hyperglycemia 10/07/2013 017 Overview: No hx of DM. Will continue SSI to keep glucose < 160 in post-op period. Tapering steroids. Discharge Planning 10/06/2013 4 Overview: Discharge today 10.14.2013. Lives in [facility] with . Scheduled appointment with [place] [facility] at 10:30 on 10.[address] Kim at 11:30 on 10.16.2013. H/o Anxiety 10/06/2013 12/19/2016 Overview: Hx of anxiety. Takes ativan BID at home. Mood stable. Plan to continue as an inpatient and increase dose as needed ASA CLASS II 11/25/2002 11/06/2011 Aortic valve disorder 2016 Overview: Dr. Mckay documented as of this encounter (statuses as of 10/17/2023) [facility] History of Past illness Narrative* Problem Noted Date Diagnosed Date Resolved Date Pseudopolyp of ascending col on without complication 05/15/2017 08/31/2020 Microscopic hematuria 05/17/20162020 Angiomyolipoma 05/17/2016 08/31/2020 Overview: Unchanged on recent ct scan Hyperdense renal cyst 05/17/20162021 Overview: Unchanged on recent ct scan Acute right-sided low back p ain with right-sided sciatica 03/23/2016 12/19/2016 H/o HTN 10/14/2013 07/06/2022 Overview: Currently normotensive. On BB, IV lasix- will change to po at discharge. Pneumoperitoneum 10/10/2013 04/30/2014 Overview: CXR: Pneumoperitoneum noted under right hemidaphragm. D/w CTS and Cards. Pt asymptomatic. No fevers or tachycardia. Denies any abdominal pain. Improving Diaphragmatic eventration 10/10/2013 SUMMARY 10/10/2013 06/16/2016 Overview: Indication for procedure: AI and , progressive SOB LVEF: 52% RVF: Normal Pacing wires: No Cath: nml Surgeries: 10/08/2013 Redo sternotomy: AVR (#21 [place] mechanical valve) PMHx: HTN, HPL, Asthma, GERD, Anxiety, Depression, hypothyroidism OR Course: Uncomplicated Unit Course: Mod. LVH with apparent volume responsiveness (hemodynamics seemed best with CVP approx 15 and PAD approx 20). DVT prophylaxis: Encourage increased activity, SHAWN hose. Pain following surgery or procedure 10/08/2013 10/14/2013 Overview: Pt w/multiple medication allergies. Reports adequate pain control on current regimen. Lidoderm patches discontinued and steroids are being tapered (started prophylactically for adhesive allergy). Will uptitrate regimen as needed. Hyperchloremic metabolic acidosis 10/08/2013 10/09/2013 Overview: 10/08/13 - slightly acidotic with elevated chloride. Anion pina = +14, delta-delta = -7. No hx or s/s of impaired renal function. Will continue to monitor for now, with plan to treat if hyperchloremia/acidosis persists or worsens Atelectasis/FVO/Pleural effusions 10/08/2013 04/30/2014 Overview: On RA. Wt 2.1 kg above pre-op. CXR: b/l atelectasis. Small effusions. Cont lasix for aggressive diuresis. Plan to continue home bronchodilators, Enc OOB, amb, C&DB, PEP. Mechanically assisted ventilation 10/07/2013 10/08/2013 Overview: 10/07/2013 Residual anesthesia still on board. Will WTE once fully awake and appropriate extubation criteria met, including adequate hemostasis. Acute blood loss anemia 10/07/2013 10/0 08/2013 Overview: 10/07/2013 Intraop blood loss with last intraop Hgb of 10.4 Level is adequate for oxygen delivery. Presently minimal need for vasoactive hemodynamic support. Plan Monitor closely for additional bleeding or coagulopathy Fluid resuscitation as needed Consider blood products if acute decompensation or further bleeding, or with Hgb < 7. 10/09/13 - H/H stable, will continue to monitor Cardiac insufficiency follow ing cardiac surgery 10/07/2013 10/09/2013 Overview: 10/07/2013 Immediately postop, needs low dose inotropic support with epinephrine as well as fluid resuscitation to ensure euvolemia (given her LVH and stage 2 diastolic dysfunction). Wean epi as tolerated. Avoid tachycardia 10/08/13 - wean Epi gtt, high fluid balance - begin lasix Stress hyperglycemia 10/07/2013 017 Overview: No hx of DM. Will continue SSI to keep glucose < 160 in post-op period. Tapering steroids. Discharge Planning 10/06/2013 06//201 4 Overview: Discharge today 10.14.2013. Lives in [facility] with . Scheduled appointment with [place] [facility] at 10:30 on [address] Kim at 11:30 on 10.16.2013. H/o Anxiety 10/06/2013 12/19/2016 Overview: Hx of anxiety. Takes ativan BID at home. Mood stable. Plan to continue as an inpatient and increase dose as needed ASA CLASS II 11/25/2002 11/06/2011 Aortic valve disorder 2016 Overview: Dr. 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 On BB, IV lasix- will change to po at discharge. Pneumoperitoneum 10/10/2013 04/30/2014 Overview: CXR: Pneumoperitoneum noted under right hemidaphragm. D/w CTS and Cards. Pt asymptomatic. No fevers or tachycardia. Denies any abdominal pain. Improving Diaphragmatic eventration 10/10/2013 SUMMARY 10/10/2013 06/16/2016 Overview: Indication for procedure: AI and , progressive SOB LVEF: 52% RVF: Normal Pacing wires: No Cath: nml Surgeries: 10/08/2013 Redo sternotomy: AVR (#21 [place] mechanical valve) PMHx: HTN, HPL, Asthma, GERD, Anxiety, Depression, hypothyroidism OR Course: Uncomplicated Unit Course: Mod. LVH with apparent volume responsiveness (hemodynamics seemed best with CVP approx 15 and PAD approx 20). DVT prophylaxis: Encourage increased activity, SHAWN hose. Pain following surgery or procedure 10/08/2013 10/14/2013 Overview: Pt w/multiple medication allergies. Reports adequate pain control on current regimen. Lidoderm patches discontinued and steroids are being tapered (started prophylactically for adhesive allergy). Will uptitrate regimen as needed. Hyperchloremic metabolic acidosis 10/08/2013 10/09/2013 Overview: 10/08/13 - slightly acidotic with elevated chloride. Anion pina = +14, delta-delta = -7. No hx or s/s of impaired renal function. Will continue to monitor for now, with plan to treat if hyperchloremia/acidosis persists or worsens Atelectasis/FVO/Pleural effusions 10/08/2013 04/30/2014 Overview: On RA. Wt 2.1 kg above pre-op. CXR: b/l atelectasis. Small effusions. Cont lasix for aggressive diuresis. Plan to continue home bronchodilators, Enc OOB, amb, C&DB, PEP. Mechanically assisted ventilation 10/07/2013 10/08/2013 Overview: 10/07/2013 Residual anesthesia still on board. Will WTE once fully awake and appropriate extubation criteria met, including adequate hemostasis. Acute blood loss anemia 10/07/2013 10/0 08/2013 Overview: 10/07/2013 Intraop blood loss with last intraop Hgb of 10.4 Level is adequate for oxygen delivery. Presently minimal need for vasoactive hemodynamic support. Plan Monitor closely for additional bleeding or coagulopathy Fluid resuscitation as needed Consider blood products if acute decompensation or further bleeding, or with Hgb < 7. 10/09/13 - H/H stable, will continue to monitor Cardiac insufficiency follow ing cardiac surgery 10/07/2013 10/09/2013 Overview: 10/07/2013 Immediately postop, needs low dose inotropic support with epinephrine as well as fluid resuscitation to ensure euvolemia (given her LVH and stage 2 diastolic dysfunction). Wean epi as tolerated. Avoid tachycardia 10/08/13 - wean Epi gtt, high fluid balance - begin lasix Stress hyperglycemia 10/07/201312/19/2 017 Overview: No hx of DM. Will continue SSI to keep glucose < 160 in post-op period. Tapering steroids. Discharge Planning 10/06/2013 06/06/201 4 Overview: Discharge today 10.14.2013. Lives in [facility] with . Scheduled appointment with [place] [facility] at 10:[address] on [address] Kim at 11:30 on 10.16.2013. H/o Anxiety 10/06/2013 12/19/2016 Overview: Hx of anxiety. Takes ativan BID at home. Mood stable. Plan to continue as an inpatient and increase dose as needed ASA CLASS II 11/25/2002 11/06/2011 Aortic valve disorder 2016 Overview: Dr. 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 On BB, IV lasix- will change to po at discharge. Pneumoperitoneum 10/10/2013 04/30/2014 Overview: CXR: Pneumoperitoneum noted under right hemidaphragm. D/w CTS and Cards. Pt asymptomatic. No fevers or tachycardia. Denies any abdominal pain. Improving Diaphragmatic eventration 10/10/2013 SUMMARY 10/10/2013 06/16/2016 Overview: Indication for procedure: AI and , progressive SOB LVEF: 52% RVF: Normal Pacing wires: No Cath: nml Surgeries: 10/08/2013 Redo sternotomy: AVR (#21 [place] mechanical valve) PMHx: HTN, HPL, Asthma, GERD, Anxiety, Depression, hypothyroidism OR Course: Uncomplicated Unit Course: Mod. LVH with apparent volume responsiveness (hemodynamics seemed best with CVP approx 15 and PAD approx 20). DVT prophylaxis: Encourage increased activity, SHAWN vivar. Pain following surgery or procedure 10/08/2013 10/14/2013 Overview: Pt w/multiple medication allergies. Reports adequate pain control on current regimen. Lidoderm patches discontinued and steroids are being tapered (started prophylactically for adhesive allergy). Will uptitrate regimen as needed. Hyperchloremic metabolic acidosis 10/08/2013 10/09/2013 Overview: 10/08/13 - slightly acidotic with elevated chloride. Anion pina = +14, delta-delta = -7. No hx or s/s of impaired renal function. Will continue to monitor for now, with plan to treat if hyperchloremia/acidosis persists or worsens Atelectasis/FVO/Pleural effusions 10/08/2013 04/30/2014 Overview: On RA. Wt 2.1 kg above pre-op. CXR: b/l atelectasis. Small effusions. Cont lasix for aggressive diuresis. Plan to continue home bronchodilators, Enc OOB, amb, C&DB, PEP. Mechanically assisted ventilation 10/07/2013 10/08/2013 Overview: 10/07/2013 Residual anesthesia still on board. Will WTE once fully awake and appropriate extubation criteria met, including adequate hemostasis. Acute blood loss anemia 10/07/2013 1008/2013 Overview: 10/07/2013 Intraop blood loss with last intraop Hgb of 10.4 Level is adequate for oxygen delivery. Presently minimal need for vasoactive hemodynamic support. Plan Monitor closely for additional bleeding or coagulopathy Fluid resuscitation as needed Consider blood products if acute decompensation or further bleeding, or with Hgb < 7. 10/09/13 - H/H stable, will continue to monitor Cardiac insufficiency follow ing cardiac surgery 10/07/2013 10/09/2013 Overview: 10/07/2013 Immediately postop, needs low dose inotropic support with epinephrine as well as fluid resuscitation to ensure euvolemia (given her LVH and stage 2 diastolic dysfunction). Wean epi as tolerated. Avoid tachycardia 10/08/13 - wean Epi gtt, high fluid balance - begin lasix Stress hyperglycemia 10/07/2013 017 Overview: No hx of DM. Will continue SSI to keep glucose < 160 in post-op period. Tapering steroids. Discharge Planning 10/06/2013 06 4 Overview: Discharge today 10.14.2013. Lives in [facility] with . Scheduled appointment with [place] [facility] at 10:[address] on [address] Kim at 11:30 on 10.16.2013. H/o Anxiety 10/06/2013 12/19/2016 Overview: Hx of anxiety. Takes ativan BID at home. Mood stable. Plan to continue as an inpatient and increase dose as needed ASA CLASS II 11/25/2002 11/06/2011 Aortic valve disorder 2016 Overview: Dr. 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 On BB, IV lasix- will change to po at discharge. Pneumoperitoneum 10/10/2013 04/30/2014 Overview: CXR: Pneumoperitoneum noted under right hemidaphragm. D/w CTS and Cards. Pt asymptomatic. No fevers or tachycardia. Denies any abdominal pain. Improving Diaphragmatic eventration 10/10/2013 SUMMARY 10/10/2013 06/16/2016 Overview: Indication for procedure: AI and , progressive SOB LVEF: 52% RVF: Normal Pacing wires: No Cath: nml Surgeries: 10/08/2013 Redo sternotomy: AVR (#21 [place] mechanical valve) PMHx: HTN, HPL, Asthma, GERD, Anxiety, Depression, hypothyroidism OR Course: Uncomplicated Unit Course: Mod. LVH with apparent volume responsiveness (hemodynamics seemed best with CVP approx 15 and PAD approx 20). DVT prophylaxis: Encourage increased activity, SHAWN hose. Pain following surgery or procedure 10/08/2013 10/14/2013 Overview: Pt w/multiple medication allergies. Reports adequate pain control on current regimen. Lidoderm patches discontinued and steroids are being tapered (started prophylactically for adhesive allergy). Will uptitrate regimen as needed. Hyperchloremic metabolic acidosis 10/08/2013 10/09/2013 Overview: 10/08/13 - slightly acidotic with elevated chloride. Anion pina = +14, delta-delta = -7. No hx or s/s of impaired renal function. Will continue to monitor for now, with plan to treat if hyperchloremia/acidosis persists or worsens Atelectasis/FVO/Pleural effusions 10/08/2013 04/30/2014 Overview: On RA. Wt 2.1 kg above pre-op. CXR: b/l atelectasis. Small effusions. Cont lasix for aggressive diuresis. Plan to continue home bronchodilators, Enc OOB, amb, C&DB, PEP. Mechanically assisted ventilation 10/07/2013 10/08/2013 Overview: 10/07/2013 Residual anesthesia still on board. Will WTE once fully awake and appropriate extubation criteria met, including adequate hemostasis. Acute blood loss anemia 10/07/201308/2013 Overview: 10/07/2013 Intraop blood loss with last intraop Hgb of 10.4 Level is adequate for oxygen delivery. Presently minimal need for vasoactive hemodynamic support. Plan Monitor closely for additional bleeding or coagulopathy Fluid resuscitation as needed Consider blood products if acute decompensation or further bleeding, or with Hgb < 7. 10/09/13 - H/H stable, will continue to monitor Cardiac insufficiency follow ing cardiac surgery 10/07/2013 10/09/2013 Overview: 10/07/2013 Immediately postop, needs low dose inotropic support with epinephrine as well as fluid resuscitation to ensure euvolemia (given her LVH and stage 2 diastolic dysfunction). Wean epi as tolerated. Avoid tachycardia 10/08/13 - wean Epi gtt, high fluid balance - begin lasix Stress hyperglycemia 10/07/2013 017 Overview: No hx of DM. Will continue SSI to keep glucose < 160 in post-op period. Tapering steroids. Discharge Planning 10/06/2013 06// 4 Overview: Discharge today 10.14.2013. Lives in [facility] with . Scheduled appointment with [place] [facility] at 10:[address] on [address] Kim at 11:30 on 10.16.2013. H/o Anxiety 10/06/2013 12/19/2016 Overview: Hx of anxiety. Takes ativan BID at home. Mood stable. Plan to continue as an inpatient and increase dose as needed ASA CLASS II 11/25/2002 11/06/2011 Aortic valve disorder 2016 Overview: Dr. Mckay documented as of this encounter (statuses as of 11/02/2023) [facility] Evaluation note* Diagnosis Onset Date Resolution Status 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 Chronic diastolic heart failure chronic Essential hypertension chron ic History of mechanical aortic valve replacement September, chronic Hyperlipidemia chronic PAF (paroxysmal atrial fibrillation) chronic Bronchiectasis chronic [facility] Work Phone: Discharge summary Author Dr. Villarreal [facility] October 23, 2022 4:14pm Note Date/Time October 23, 2022 4:1 3pm [facility] Medical Records Department [address] [place] [address] Instructions for Home/Discharge Instructions 10/23/22 1611 MR#: [id number] Acct: [id number] Name: ELZA CHU Rep #:[id number] : [id number] 76 From: Katherine Villarreal MD PCP: Dr. Kolby Kim MD Status:ADM I N Discharge Instructions Diet Discharge Diet: - (Resume previous diet) Activity Discharge Activity: Return to Normal Activity Follow Up Care Test Results: Test results from this visit will be discussed in further detail at your follow- up appointment, if applicable. Discharge Plan Admission Admit Date/Time: 10/20/22 19:26 Primary Reason for Your Visit: Shortness of breath Attending Provider: Katherine Villarreal Primary Care Provider: Kolby Kim Consulting Providers: Faviola Perry ; Anju Sanz ; Trent Vizcaino Instructions Patient Instructions: ED Fall Prevention Additional Instructions / Restrictions: DISCHARGE INSTRUCTIONS PLEASE READ *Please take this with you to your next doctors appointment* -Please follow-up with your lung doctor on discharge -You were admitted due to pneumonia and you will be discharged on antibiotics. You will take 1 dose of doxycycline tonight followed by 3 days of doxycycline twice daily -You also take 3 more days of prednisone 40 mg starting 10/24/2022. These have been sent to your preferred pharmacy on [address], [address] in [place] -Your INR on day of discharge was 3.8, and you are getting 2.5 mg of Coumadin daily. Please hold your dose of Coumadin 10/23/2022 and continue 2.5 mg. Pleasecall the physician managing your INR and Coumadin (warfarin) upon discharge for further adjustment and monitoring as this will likely need adjusted further and further INR is trended. -Additionally would recommend taking half a dose of Lasix for 3 days followed byresumption of your normal routine. - Would recommend lab work ( BMP ) to check your kidneys in 3 to 5 days through your primary care physician's office. Please call their office upon discharge to obtain order for lab work. -Please continue other home medications -Please call your primary care provider's office upon discharge to schedule a hospital follow up within 1 week. -For any concerning signs or symptoms please call 911 or proceed to the nearest emergency department Discharge Orders/Prescriptions Prescriptions: Continued cholecalciferol (vitamin D3) 50,000 unit capsule 50,000 unit PO FR albuterol sulfate 90 mcg/actuation HFA aerosol inhaler 2 puff inhalation Q4H PRN (Reason: shortness of breath or wheezing) Qty: 8.5 6RF Rx Instructions: administer with spacer ferrous sulfate 325 mg (65 mg iron) tablet 325 mg PO BID Label Comments: TAKE 1 TABLET BY MOUTH TWICE DAILY WITH MEALS guaifenesin 1,200 mg tablet extended release 12hr 1,200 mg PO Q12H Qty: 60 6RF pantoprazole 40 MG tablet 40 mg PO BID Label Comments: stomach aspirin 81 MG tablet,chewable 162 mg PO DAILY Label Comments: blood thinner/heart lorazepam 0.5 MG tablet 0.5 mg PO BID PRN (Reason: ANXIETY) Label Comments: anxiety bupropion HCl 150 MG tablet extended release 24 hr 150 mg PO DAILY Label Comments: depression potassium chloride 20 MEQ tablet 20 meq PO DAILY montelukast 10 MG tablet 10 mg PO QHS acetaminophen 650 MG tablet extended release 650 mg PO Q6H PRN (Reason: BACK PAIN) famotidine 20 mg tablet 20 mg PO DAILY PRN Label Comments: TAKE 1 TABLET BY MOUTH AT BEDTIME NEEDED paroxetine HCl 20 mg tablet 10 mg PO BID albuterol sulfate 2.5 MG/3 ML solution for nebulization 2.5 mg inhalation Q4H PRN Qty: 25 0RF Rx Instructions: Use q4 hours and PRN for wheezing amiodarone 200 mg tablet 100 mg PO DAILY metoprolol succinate 50 mg tablet extended release 24 hr See Rx Instructions .ROUTE .COMPLEX Rx Instructions: TAKE 1 TABLET BY MOUTH DAILY FOR BLOOD PRESSURE ezetimibe [Zetia] 10 mg tablet 10 mg PO DAILY warfarin 2.5 mg Tablet 2.5 mg PO DAILY prednisone 20 mg tablet 40 mg PO DAILY 3 Days Qty: 6 0RF doxycycline monohydrate 100 mg capsule 100 mg PO BID 3 Days Qty: 7 0RF triamcinolone acetonide [Nasacort] 55 mcg aerosol,spray 1 spray INTRANASAL DAILY Qty: 16.9 6RF fluticasone furoate-vilanterol [Breo Ellipta] 200-25 mcg/dose blister with device 1 inh inhalation DAILY Qty: 60 11RF pravastatin 80 mg tablet 80 mg PO QHS Qty: 90 3RF Spiriva Respimat 2.5 mcg/actuation mist 2 puff inhalation QDAY Qty: 3 3RF Rx Instructions: administer at approximately the same time(s) each day Held furosemide 40 MG tablet 40 mg PO DAILY Qty: 0 0RF Hold Instructions: Resume on 10/25/22. Discontinued warfarin 2.5 mg tablet 4.5 mg PO WEFR Rx Instructions: Managed by PCP warfarin 3 mg tablet 4.5 mg PO SUMOTUTHSA Rx Instructions: Managed by PCP prednisone 20 mg tablet 60 mg PO DAILY Qty: 15 0RF doxycycline monohydrate 100 mg capsule 100 mg PO BID Qty: 14 0RF Referrals / Follow Up: Jeremy Johnson DO [Med Staff - Active Staff] - See Referral Note (Please follow- upwith your lung doctor upon discharge) Kolby Kim MD [Primary Care Provider] - Within 1 Week Disposition Disposition (needs filled in before D/C Order can be placed): Home, Self Care 10/23/22 1614<Electronically signed by Katherine Villarreal MD>Katherine Villarreal MD CC: Dr. Faviola Perry MD; Dr. Anju Sanz MD; Dr. Trent Vizcaino MD; Dr. Kolby Kim MD ~ Signed [facility] Work Phone: Evaluation note* Diagnosis Fall, subsequent encounter- Primary Advance care planning Other specified counseling Chronic obstructive pulmonary disease, unspecified COPD type (HCC) Cough Depression, unspecified depression type Dyspnea and respiratory abnormalities Other dyspnea and respiratory abnormality [facility] Diagnosis Paroxysmal atrial fibrillation (HCC) Atrial fibrillation History of aortic valve replacement Heart valve replaced by other means [facility] Diagnosis Paroxysmal atrial fibrillation (HCC) Atrial fibrillation History of aortic valve replacement Heart valve replaced by other means History of heart valve replacement Heart valve replaced by other means [facility] Diagnosis Chronic obstructive pulmonary disease, unspecified COPD type (HCC)- Primary Lewy body dementia without behavioral disturbance (HCC) Dementia with Lewy bodies Hyperlipidemia LDL goal <100 Other and unspecified hyperlipidemia History of aortic valve replacement Heart valve replaced by other means Heart failure, diastolic, chronic (HCC) Chronic diastolic heart failure Paroxysmal atrial fibrillation (HCC) Atrial fibrillation Aortic valve stenosis with insufficiency, etiology of cardiac valve disease unspecified Stage 3 chronic kidney disease, unspecified whether stage 3a or 3b CKD (HCC) Nontoxic uninodular goiter Impaired glucose tolerance Impaired glucose tolerance test Angiomyolipoma of left kidney Vitamin D deficiency Unspecified vitamin D deficiency Gastroesophageal reflux disease without esophagitis Esophageal reflux Anemia, unspecified type Iron deficiency Iron deficiency anemia, unspecified Anxiety Anxiety state, unspecified [facility]* Diagnosis Paroxysmal atrial fibrillation (HCC) Atrial fibrillation History of aortic valve replacement Heart valve replaced by other means [facility] encounter [facility]* Diagnosis Paroxysmal atrial fibrillation (HCC) Atrial fibrillation History of aortic valve replacement Heart valve replaced by other means [facility]* Diagnosis Onset Date Resolution Status Bronchiectasis chronic Dyspnea on exertion acute 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 Chronic diastolic heart failure chronic Essential hypertension chron ic History of mechanical aortic valve replacement September, chronic Hyperlipidemia chronic PAF (paroxysmal atrial fibrillation) [facility] Work Phone: Evaluation note* Diagnosis History of aortic valve replacement- Primary Heart valve replaced by other means Paroxysmal atrial fibrillation (HCC) Atrial fibrillation Aortic valve stenosis with insufficiency, etiology of cardiac valve disease unspecified documented [facility] this encounter [facility]* Diagnosis Paroxysmal atrial fibrillation (HCC) Atrial fibrillation History of aortic valve replacement Heart valve replaced by other means documented [facility] encounter [facility]* Diagnosis Hypertension, unspecified type- Primary documented in [facility] encounter [facility]* Diagnosis Paroxysmal atrial fibrillation (HCC) Atrial fibrillation History of aortic valve replacement Heart valve replaced by other means documented in this encounter [facility] note* Diagnosis Depression, unspecified depression type Paroxysmal atrial fibrillation (HCC) Atrial fibrillation Bronchiectasis without complication (HCC) Bronchiectasis without acute exacerbation Chronic obstructive pulmonary disease, unspecified COPD type (HCC) Chronic sinusitis, unspecified location Cough, unspecified type documented in this encounter [facility]* Diagnosis Anemia, unspecified type Iron deficiency Iron deficiency anemia, unspecified Anxiety Anxiety state, unspecified documented [facility]* Diagnosis History of heart valve replacement Heart valve replaced by other means [facility]* Diagnosis Hypertension, unspecified type- Primary Anxiety Anxiety state, unspecified Chronic obstructive pulmonary disease, unspecified COPD type (HCC) Lewy body dementia without behavioral disturbance (HCC) Dementia with Lewy bodies Heart failure, diastolic, chronic (HCC) Chronic diastolic heart failure Red eye Redness or discharge of eye Hyperlipidemia LDL goal <100 Other and unspecified hyperlipidemia [facility] encounter [facility]* Diagnosis Skin infection- Primary Unspecified local infection of skin and subcutaneous tissue [facility]* Diagnosis Paroxysmal atrial fibrillation (HCC) Atrial fibrillation History of aortic valve replacement Heart valve replaced by other means [facility] Diagnosis Lewy body dementia with other behavioral disturbance, unspecified dementia severity (HCC)- Primary Parkinsonism, unspecified Parkinsonism type (HCC) Paroxysmal atrial fibrillation (HCC) Atrial fibrillation Depression, unspecified depression type Chronic obstructive pulmonary disease, unspecified COPD type (HCC) [facility] Diagnosis Paroxysmal atrial fibrillation (HCC) Atrial fibrillation History of aortic valve replacement Heart valve replaced by other means [facility]* Diagnosis Anxiety Anxiety state, unspecified [facility]* Diagnosis Depression, unspecified depression type documented in this encounter [facility] note* Diagnosis Anemia, unspecified type Iron deficiency Iron deficiency anemia, unspecified Vitamin D deficiency Unspecified vitamin D deficiency Dyspnea and respiratory abnormalities Other dyspnea and respiratory abnormality documented [facility] encounter [facility]* Diagnosis Onset Date Resolution Status Bronchiectasis chronic Hypoxemia chronic 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 Chronic diastolic heart failure chronic Essential hypertension chron ic History of mechanical aortic valve replacement September, chronic Hyperlipidemia chronic PAF (paroxysmal atrial fibrillation) [facility] Work Phone: Evaluation note* Diagnosis Need for vaccination- Primary Need for prophylactic vaccination and inoculation against unspecified single disease [facility] encounter [facility]* Diagnosis Encounter for screening mammogram for malignant neoplasm of breast- Primary Other screening mammogram [facility] Diagnosis Bleeding from right ear- Primary Other osteoporosis without current pathological fracture History of aortic valve replacement Heart valve replaced by other means [facility] Chronic pansinusitis- Primary Other chronic sinusitis Bleeding from right ear [facility]* Diagnosis Anemia, unspecified type Iron deficiency Iron deficiency anemia, unspecified [facility]* Diagnosis Depression, unspecified depression type Uncomplicated asthma, unspecified asthma severity, unspecified whether persistent [facility] Diagnosis Chronic pansinusitis- Primary Other chronic sinusitis Nasal crusting Other diseases of nasal cavity and sinuses Impacted cerumen of right ear Impacted cerumen [facility] Diagnosis Lumbar spondylosis- Primary Lumbosacral spondylosis without myelopathy Facet arthropathy, lumbar Lumbosacral spondylosis without myelopathy Compression deformity of vertebra Other acquired deformity of back or spine Compression fracture of thoracic vertebra, unspecified thoracic vertebral level, sequela Compression fracture of lumbar spine, non-traumatic, sequela Radiculopathy of lumbar region Thoracic or lumbosacral neuritis or radiculitis, unspecified Spinal stenosis of lumbar region with neurogenic claudication Spinal stenosis, lumbar region, with neurogenic claudication [facility]* Diagnosis Paroxysmal atrial fibrillation (HCC) Atrial fibrillation History of aortic valve replacement Heart valve replaced by other means [facility]* Diagnosis Uncomplicated asthma, unspecified asthma severity, unspecified whether persistent [facility] Diagnosis Polyarthralgia- Primary Pain in joint, multiple sites Vitamin D deficiency Unspecified vitamin D deficiency Failure to thrive in adult Adult failure to thrive Vitamin D deficiency, unspecified Interstitial pulmonary disease (HCC) Postinflammatory pulmonary fibrosis [facility]* Diagnosis Lumbar spondylosis- Primary Lumbosacral spondylosis without myelopathy Facet arthropathy, lumbar Lumbosacral spondylosis without myelopathy Spinal stenosis of lumbar region with neurogenic claudication Spinal stenosis, lumbar region, with neurogenic claudication Compression deformity of vertebra Other acquired deformity of back or spine Compression fracture of thoracic vertebra, unspecified thoracic vertebral level, sequela Compression fracture of lumbar spine, non-traumatic, sequela [facility]* Diagnosis Paroxysmal atrial fibrillation (HCC) Atrial fibrillation History of aortic valve replacement Heart valve replaced by other means [facility] Diagnosis Onset Date Resolution Status Bronchiectasis chronic [facility] Work Phone: Evaluation note* Diagnosis Onset Date Resolution Status Bronchiectasis chronic Pneumonia acute [facility] Work Phone: Evaluation note* Diagnosis Bacterial pneumonia- Primary Bacterial pneumonia, unspecified Chronic obstructive pulmonary disease, unspecified COPD type ([facility]) Bronchiectasis without complication ([facility]) Bronchiectasis without acute exacerbation Paroxysmal atrial fibrillation ([facility]) Atrial fibrillation Heart failure, diastolic, chronic ([facility]) Chronic diastolic heart failure Chronic respiratory failure with hypoxia ([facility]) Chronic respiratory failure Renal cyst 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[facility]) Unspecified paranoid state 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 congestive heart failure and stage 3 chronic kidney disease, unspecified whether stage 3a or 3b CKD ([facility]) Other disorders of arteries, arterioles and capillaries in diseases classified elsewhere ([facility]) Chronic kidney disease, stage 3a ([facility]) Parkinson's disease ([facility]) Paralysis agitans documented in this encounter [facility] note* Diagnosis Onset Date Resolution Status Bronchiectasis chronic ROXANA (acute kidney injury) [place] Chest pain acute Leukocytosis acute NSTEMI, initial episode of care acute [facility] Work Phone: Evaluation note* Diagnosis Onset Date Resolution Status ROXANA (acute kidney injury) [place] Chest pain acute Leukocytosis acute NSTEMI, initial episode of care acute COPD (chronic obstructive pulmonary disease) chronic Essential hypertension chron ic History of mechanical aortic valve replacement September, chronic PAF (paroxysmal atrial fibrillation) [facility] Work Phone: Evaluation note* Diagnosis NSTEMI (non-ST elevated myocardial infarction) ([facility])- Primary Acute myocardial infarction, subendocardial infarction, episode of care unspecified Paroxysmal atrial fibrillation ([facility]) Atrial fibrillation Heart failure, diastolic, chronic ([facility]) Chronic diastolic heart failure Hyperlipidemia LDL goal <100 Other and unspecified hyperlipidemia Aortic valve stenosis with insufficiency, etiology of cardiac valve disease unspecified 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 congestive heart failure and stage 3 chronic kidney disease, unspecified whether stage 3a or 3b CKD ([facility]) Chronic obstructive pulmonary disease, unspecified COPD type ([facility]) Medication monitoring encounter Encounter for therapeutic drug monitoring Weight loss Loss of weight Lewy body dementia with psychotic disturbance, unspecified dementia severity (HCC) Lumbar spondylosis- Primary Lumbosacral spondylosis without myelopathy Facet arthropathy, lumbar Lumbosacral spondylosis without myelopathy [facility]* Diagnosis Paroxysmal atrial fibrillation (HCC) Atrial fibrillation History of aortic valve replacement Heart valve replaced by other means Lumbar spondylosis- Primary Lumbosacral spondylosis without myelopathy Facet arthropathy, lumbar Lumbosacral spondylosis without myelopathy [facility]* Diagnosis Leukocytosis, unspecified type- Primary documented in this encounter [facility] note* Diagnosis Lumbar spondylosis- Primary Lumbosacral spondylosis without myelopathy Facet arthropathy, lumbar Lumbosacral spondylosis without myelopathy [facility]* Diagnosis Onset Date Resolution Status ROXANA (acute kidney injury) [place] Chest pain acute Leukocytosis acute COPD (chronic obstructive pulmonary disease) chronic Essential hypertension chron ic History of mechanical aortic valve replacement September, chronic PAF (paroxysmal atrial fibrillation) chronic Oral thrush acute Bronchiectasis chronic Chronic sinusitis chronic COPD (chronic obstructive pulmonary disease) chronic Hypoxemia [facility] Work Phone: Evaluation note* Diagnosis Anxiety Anxiety state, unspecified [facility]* Diagnosis Lumbar spondylosis- Primary Lumbosacral spondylosis without myelopathy 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HCC) Unspecified paranoid state Encounter for long-term (current) use of insulin (HCC) Encounter for long-term (current) use of insulin [facility]* Diagnosis Paroxysmal atrial fibrillation (HCC) Atrial fibrillation History of aortic valve replacement Heart valve replaced by other means documented in this encounter [facility] note* Diagnosis Paroxysmal atrial fibrillation (HCC)- Primary Atrial fibrillation History of aortic valve replacement Heart valve replaced by other means [facility]* Diagnosis Onset Date Resolution Status ROXANA (acute kidney injury) [place] Chest pain acute Leukocytosis acute COPD (chronic obstructive pulmonary disease) chronic Essential hypertension chron ic History of mechanical aortic valve replacement September, chronic PAF (paroxysmal atrial fibrillation) chronic Oral thrush acute Bronchiectasis chronic Chronic sinusitis chronic COPD (chronic obstructive pulmonary disease) chronic Hypoxemia chronic 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 Chronic diastolic heart failure chronic Essential hypertension chron ic History of mechanical aortic valve replacement September, chronic Hyperlipidemia chronic PAF (paroxysmal atrial fibrillation) chronic Bronchiectasis [facility] Work Phone: Evaluation note* Diagnosis Paroxysmal atrial fibrillation (HCC) Atrial fibrillation History of aortic valve replacement Heart valve replaced by other means [facility] Lewy body dementia with psychotic disturbance, unspecified dementia severity (HCC)- Primary Parkinsonism, unspecified Parkinsonism type (HCC) [facility] Hyperlipidemia LDL goal <100- Primary Other and unspecified hyperlipidemia Anemia, unspecified type Iron deficiency Iron deficiency anemia, unspecified Dyspnea and respiratory abnormalities Other dyspnea and respiratory abnormality Weight loss Loss of weight Anxiety with depression [facility] Diagnosis Paroxysmal atrial fibrillation (HCC) Atrial fibrillation History of aortic valve replacement Heart valve replaced by other means [facility] Diagnosis History of heart valve replacement- Primary [facility] valve replaced by other means [facility] Paroxysmal atrial fibrillation (HCC) Atrial fibrillation History of aortic valve replacement Heart valve replaced by other means [facility]* Diagnosis Anxiety Anxiety state, unspecified Gastroesophageal reflux disease without esophagitis Esophageal reflux [facility]* Diagnosis Paroxysmal atrial fibrillation (HCC)- Primary Atrial fibrillation History of aortic valve replacement Heart valve replaced by other means [facility]* Diagnosis Dysphagia, unspecified type- Primary Moderate persistent asthma without complication Unspecified asthma Chronic obstructive pulmonary disease, unspecified COPD type (HCC) Heart failure, diastolic, chronic (HCC) Chronic diastolic heart failure 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 congestive heart failure and stage 3 chronic kidney disease, unspecified whether stage 3a or 3b CKD (HCC) Weight loss Loss of weight Hyperglycemia Other abnormal glucose [facility] Diagnosis Paroxysmal atrial fibrillation (HCC)- Primary Atrial fibrillation History of aortic valve replacement Heart valve replaced by other means [facility] Diagnosis Onset Date Resolution Status Oral thrush acute Bronchiectasis chronic Chronic sinusitis chronic COPD (chronic obstructive pulmonary disease) chronic Hypoxemia chronic 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 Chronic diastolic heart failure chronic Essential hypertension chron ic History of mechanical aortic valve replacement September, chronic Hyperlipidemia chronic PAF (paroxysmal atrial fibrillation) chronic Bronchiectasis chronic Bronchiectasis chronic 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 Chronic diastolic heart failure chronic Essential hypertension chron ic History of mechanical aortic valve replacement September, chronic Hyperlipidemia chronic PAF (paroxysmal atrial fibrillation) [facility] Work Phone: Evaluation note* Diagnosis Weight loss- Primary Loss of weight Paroxysmal atrial fibrillation (HCC) Atrial fibrillation Aortic valve stenosis with insufficiency, etiology of cardiac valve disease unspecified Heart failure, diastolic, chronic (HCC) Chronic diastolic heart failure [facility]* Diagnosis Paroxysmal atrial fibrillation (HCC)- Primary Atrial fibrillation History of aortic valve replacement Heart valve replaced by other means [facility]* Diagnosis Onset Date Resolution Status Bronchiectasis chronic 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 Chronic diastolic heart failure chronic Essential hypertension chron ic History of mechanical aortic valve replacement September, chronic Hyperlipidemia chronic PAF (paroxysmal atrial fibrillation) [facility] Work Phone: Evaluation note* Diagnosis Dysphagia, unspecified type [facility] Diagnosis Compression fracture of lumbar spine, non-traumatic, sequela Compression fracture of thoracic vertebra, unspecified thoracic vertebral level, sequela [facility]* Diagnosis Renal cyst Unspecified congenital cystic kidney disease documented in this encounter [facility] note* Diagnosis Lewy body dementia with psychotic disturbance, unspecified dementia severity ([facility])- Primary Parkinsonism, unspecified Parkinsonism type documented in this encounter [facility] note* Diagnosis Paroxysmal atrial fibrillation (HCC)- Primary Atrial fibrillation Hyperlipidemia LDL goal <100 Other and unspecified hyperlipidemia Aortic valve stenosis with insufficiency, etiology of cardiac valve disease unspecified Heart failure, diastolic, chronic (HCC) Chronic diastolic heart failure History of aortic valve replacement Heart valve replaced by other means 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 congestive heart failure and stage 3 chronic kidney disease, unspecified whether stage 3a or 3b CKD ([facility]) Chronic obstructive pulmonary disease, unspecified COPD type ([facility]) Bronchiectasis without complication (HCC) Bronchiectasis without acute exacerbation Iron deficiency Iron deficiency anemia, unspecified Gastroesophageal reflux disease without esophagitis Esophageal reflux Stage 3 chronic kidney disease, unspecified whether stage 3a or 3b CKD ([facility]) Impaired glucose tolerance Impaired glucose tolerance test Compression deformity of vertebra Other acquired deformity of back or spine Lewy body dementia with psychotic disturbance, unspecified dementia severity ([facility]) 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[facility]) Unspecified paranoid state Bilateral carotid artery stenosis Occlusion and stenosis of carotid artery without mention of cerebral infarction Chronic hypoxic respiratory failure, on home oxygen therapy Vitamin D deficiency, unspecified [facility]* Diagnosis Paroxysmal atrial fibrillation (HCC)- Primary Atrial fibrillation [facility]* Diagnosis Chronic obstructive pulmonary disease, unspecified COPD type ([facility])- Primary Heart failure, diastolic, chronic ([facility]) Chronic diastolic heart failure [facility]* Diagnosis Paroxysmal atrial fibrillation (HCC)- Primary Atrial fibrillation History of aortic valve replacement Heart valve replaced by other means [facility]* Diagnosis Paroxysmal atrial fibrillation (HCC)- Primary Atrial fibrillation History of aortic valve replacement Heart valve replaced by other means [facility] Diagnosis Uncomplicated asthma, unspecified asthma severity, unspecified whether persistent [facility]* Diagnosis Depression, unspecified depression type [facility]* Diagnosis Lewy body dementia with psychotic disturbance, unspecified dementia severity ([facility])- Primary Parkinsonism, unspecified Parkinsonism type ([facility]) documented [facility]* Diagnosis Anemia, unspecified type Iron deficiency Iron deficiency anemia, unspecified [facility]* Diagnosis Dyspnea and respiratory abnormalities Other dyspnea and respiratory abnormality [facility]* Diagnosis Anemia, unspecified type Iron deficiency Iron deficiency anemia, unspecified [facility]* Diagnosis Paroxysmal atrial fibrillation (HCC)- Primary Atrial fibrillation History of aortic valve replacement Heart valve replaced by other means [facility]* Diagnosis Chest pain, unspecified type- Primary Parkinsonism, unspecified Parkinsonism type ([facility]) Aortic valve stenosis with insufficiency, etiology of cardiac valve disease unspecified Heart failure, diastolic, chronic (HCC) Chronic diastolic heart failure History of aortic valve replacement Heart valve replaced by other means Hyperlipidemia LDL goal <100 Other and unspecified hyperlipidemia Paroxysmal atrial fibrillation (HCC) Atrial fibrillation Bronchiectasis without complication (HCC) Bronchiectasis without acute exacerbation Chronic hypoxic respiratory failure, on home oxygen therapy (HCC) Chronic obstructive pulmonary disease, unspecified COPD type (HCC) Chronic sinusitis, unspecified location Gastroesophageal reflux disease without esophagitis Esophageal reflux Stage 3 chronic kidney disease, unspecified whether stage 3a or 3b CKD ([facility]) Impaired glucose tolerance Impaired glucose tolerance test Compression deformity of vertebra Other acquired deformity of back or spine Lewy body dementia with psychotic disturbance, unspecified dementia severity ([facility]) 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[facility]) Unspecified paranoid state Bilateral carotid artery stenosis Occlusion and stenosis of carotid artery without mention of cerebral infarction Urinary hesitancy [facility] Diagnosis Acute recurrent sinusitis, unspecified location Aortic valve disorder Aortic valve disorders [facility] Diagnosis History of heart valve replacement- Primary Heart valve replaced by other means [facility] Diagnosis Paroxysmal atrial fibrillation (HCC)- Primary Atrial fibrillation History of aortic valve replacement Heart valve replaced by other means [facility] Diagnosis Aortic valve disorder Aortic valve disorders [facility] Diagnosis Gastroesophageal reflux disease without esophagitis Esophageal reflux [facility] Diagnosis Paroxysmal atrial fibrillation (HCC)- Primary Atrial fibrillation History of aortic valve replacement Heart valve replaced by other means [facility] Diagnosis Vitamin D deficiency Unspecified vitamin D deficiency [facility]* Diagnosis Chest pain, unspecified type [facility] Diagnosis Midline thoracic back pain, unspecified chronicity- Primary Lewy body dementia with psychotic disturbance, unspecified dementia severity ([facility]) Chronic anticoagulation Long-term (current) use of anticoagulants [facility] Diagnosis Lewy body dementia with psychotic disturbance, unspecified dementia severity (HCC)- Primary [facility] Diagnosis Compression deformity of vertebra Other acquired deformity of back or spine [facility] Diagnosis Cough, unspecified type [facility] Diagnosis Bacterial pneumonia Bacterial pneumonia, unspecified Chronic obstructive pulmonary disease, unspecified COPD type (HCC) Bronchiectasis without complication (HCC) Bronchiectasis without acute exacerbation [facility]* Diagnosis Chronic obstructive pulmonary disease, unspecified COPD type (HCC) Cough [facility]* Diagnosis Pleural effusion- Primary Unspecified pleural effusion [facility]* Diagnosis DDD (degenerative disc disease), lumbar Degeneration of lumbar or lumbosacral intervertebral disc Exacerbation of chronic back pain Backache, unspecified [facility]* Diagnosis Paroxysmal atrial fibrillation (HCC)- Primary Atrial fibrillation History of aortic valve replacement Heart valve replaced by other means [facility]* Diagnosis Parkinsonism, unspecified Parkinsonism type (HCC)- Primary Hyperlipidemia LDL goal <100 Other and unspecified hyperlipidemia Aortic valve stenosis with insufficiency, etiology of cardiac valve disease unspecified 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 congestive heart failure and stage 3 chronic kidney disease, unspecified whether stage 3a or 3b CKD (HCC) Paroxysmal atrial fibrillation (HCC) Atrial fibrillation Bronchiectasis without complication (HCC) Bronchiectasis without acute exacerbation Moderate persistent asthma without complication Unspecified asthma Chronic obstructive pulmonary disease, unspecified COPD type (HCC) Chronic sinusitis, unspecified location Impaired glucose tolerance Impaired glucose tolerance test Compression deformity of vertebra Other acquired deformity of back or spine Lewy body dementia with psychotic disturbance, unspecified dementia severity ([facility]) Depression, unspecified depression type Other disorders of arteries, arterioles and capillaries in diseases classified elsewhere (HCC) Encounter for long-term (current) use of insulin (HCC) Encounter for long-term (current) use of insulin 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[facility]) Unspecified paranoid state Sciatica, right side documented in this encounter [facility] note* Diagnosis Paroxysmal atrial fibrillation (HCC)- Primary Atrial fibrillation History of aortic valve replacement Heart valve replaced by other means [facility]* Diagnosis Lewy body dementia with psychotic disturbance, unspecified dementia severity (HCC) [facility]* Diagnosis Lewy body dementia with psychotic disturbance, unspecified dementia severity (HCC)- Primary Parkinsonism, unspecified Parkinsonism type (HCC) [facility]* Diagnosis Lewy body dementia with psychotic disturbance, unspecified dementia severity (HCC)- Primary [facility]* Diagnosis Lewy body dementia with psychotic disturbance, unspecified dementia severity (HCC)- Primary Parkinsonism, unspecified Parkinsonism type (HCC) Hyperlipidemia LDL goal <100 Other and unspecified hyperlipidemia Heart failure, diastolic, chronic (HCC) Chronic diastolic heart failure 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 congestive heart failure and stage 3 chronic kidney disease, unspecified whether stage 3a or 3b CKD (HCC) Paroxysmal atrial fibrillation (HCC) Atrial fibrillation Bronchiectasis without complication (HCC) Bronchiectasis without acute exacerbation Chronic hypoxic respiratory failure, on home oxygen therapy (HCC) Chronic obstructive pulmonary disease, unspecified COPD type (HCC) Gastroesophageal reflux disease without esophagitis Esophageal reflux Stage 3 chronic kidney disease, unspecified whether stage 3a or 3b CKD (HCC) 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HCC) Unspecified paranoid state Bilateral carotid artery stenosis Occlusion and stenosis of carotid artery without mention of cerebral infarction [facility] History of heart valve replacement Heart valve replaced by other means documented in this encounter [facility] noteNo assessment information availableSt. [facility] Work Phone: Evaluation note* Diagnosis Aortic valve disorder Aortic valve disorders documented in this encounter [facility] note* Diagnosis Lewy body dementia with psychotic disturbance, unspecified dementia severity ([facility])- Primary [facility] Olvera [facility] November 01, 2022 11:22pm Note Date/Time November 01, 2022 10:3 8pm [facility] Medical Records Department [address] [place] [id number] H&P Exam - Hospitalist 11/01/22 [id number] MR#: [id number] Acct: [id number] Name: ELZA CHU Rep #:[id number] : [id number] 76 From: Ivis Olvera DO PCP: Dr. Kolby Kim MD Status:REG E R Location: ED HPI - General General Date of Admission: 11/01/22 Date of Service: 11/01/22 Chief Complaint: Chest pain HPI Narrative ELZA CHU, is a 76 F who presented to the emergency department at [facility] on 11/01/2022 after experiencing chest pain earlier today. Patient states she was walking down the hallway at which time she experienced chest pressure on the left side of her chest that radiated to her left shoulder. She stated she rested and her symptoms went away and they have not returned. She has never had this previously and at the time of my evaluation her symptoms had completely resolved. She did not have any associated shortness of breath, nausea, or vomiting. Pain did not radiate anywhere else other than to her left shoulder. Her cardiac history does include paroxysmal atrial fibrillation, mildCAD, mechanical aortic valve, chronic diastolic heart failure, hyperlipidemia, and hypertension. She follows as an outpatient with cardiology and was last seen by Dr. Mckay on 05/22/2022. Vital signs on presentation showed a temperature of 97.9, heart rate 88, blood pressure 133/67, respiratory rate was 18 and oxygen saturations were 94% on roomair. CBC showed a leukocytosis with a white count of 20,000 and a left shift with an 86.8% neutrophilia. The patient has been on steroids at home for recentadmission related to pneumonia and asthma. Her INR is 2.4. Her chemistry panelshows normal electrolytes however BUN and serum creatinine are elevated from baseline at 21 and 1.44 respectively. Baseline serum creatinine appears to be between 0.9 and 1. Her liver functions are normal. Her troponin was elevated at 389. This was her initial troponin on presentation. Her BNP was slightly elevated at 102. Chest x-ray is unremarkable. EKG shows poor R wave progression, normal intervals, and no ST-T wave changes concerning for acute ischemia. 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 Nonrheumatic aortic valve regurgitation Nonspecific chest pain Obesity Palpitations Severe sepsis Syncope and collapse Home Medications pantoprazole 40 mg tablet,delayed release 40 mg PO BID ACID REFLUX 01/14/15 [History Last Taken 07/07/20] bupropion HCl 150 mg 24 hr tablet, extended release 150 mg PO DAILY DEPRESSION 11/15/15 [History Last Taken 07/07/20] montelukast 10 mg tablet 10 mg PO QHS ALLERGIES 05/03/17 [History Last Taken 07/06/20] potassium chloride 20 mEq tablet,extended release(part/cryst) 20 meq PO DAILY SUPPLEMENT 05/03/17 [History Last Taken 07/06/20] aspirin 81 mg chewable tablet 162 mg PO DAILY HEART HEALTH 09/04/17 [History Last Taken 07/07/20] lorazepam 0.5 mg tablet 0.5 mg PO BID PRN ANXIETY 09/04/17 [History Last Taken 07/07/20] furosemide 40 mg tablet 40 mg PO DAILY WATER PILL ##0 12/06/17 [Rx Last Taken 07/06/20] cholecalciferol (vitamin D3) 1,250 mcg (50,000 unit) capsule 50,000 unit PO FR SUPPLEMENT 06/16/19 [History Last Taken 06/25/20] acetaminophen 650 mg tablet,extended release 650 mg PO Q6H PRN BACK PAIN 07/07/20 [History Last Taken 07/07/20] albuterol sulfate 2.5 mg/3 mL (0.083 %) solution for nebulization 2.5 mg (3 mL) inhalation Q4H PRN #25 vials 05/21/21 [Rx Last Taken Unknown] triamcinolone acetonide 55 mcg nasal spray aerosol (Nasacort) 1 spray intranasalDAILY #16.9 mL 06/10/21 [Rx Last Taken Unknown] albuterol sulfate 90 mcg/actuation aerosol inhaler 2 puff inhalation Q4H PRN shortness of breath or wheezing #8.5 grams 10/04/21 [Rx Last Taken Unknown] famotidine 20 mg tablet 20 mg PO DAILY PRN gerd 11/29/21 [History Last Taken Unknown] ferrous sulfate 325 mg (65 mg iron) tablet 325 mg PO BID Check with primary doctor 11/29/21 [History Last Taken Unknown] paroxetine HCl 20 mg tablet 10 mg PO BID Check with primary doctor 11/29/21 [History Last Taken Unknown] guaifenesin 1,200 mg tablet, extended release 12 hr 1,200 mg PO Q12H #60 tabs 04/04/22 [Rx Last Taken Unknown] fluticasone furoate 200 mcg-vilanterol 25 mcg/dose inhalation powder (Breo Ellipta) 1 inh inhalation DAILY #60 ea 08/07/22 [Rx Last Taken Unknown] pravastatin 80 mg tablet 80 mg PO QHS CHOLESTEROL LOWERING #90 tabs 09/25/22 [Rx Last Taken Unknown] tiotropium bromide 2.5 mcg/actuation mist for inhalation (Spiriva Respimat) 2 puff inhalation QDAY #3 ea 10/17/22 [Rx Last Taken Unknown] amiodarone 200 mg tablet 100 mg PO DAILY Check with primary doctor 10/20/22 [History Last Taken Unknown] ezetimibe 10 mg tablet (Zetia) 10 mg PO DAILY Check with primary doctor 10/20/22[History Last Taken Unknown] metoprolol succinate 50 mg tablet,extended release 24 hr See Rx Instructions .Route .COMPLEX Check with primary doctor 10/20/22 [History Last Taken Unknown] warfarin 2.5 mg tablet 2.5 mg PO DAILY Check with primary doctor 10/20/22 [History Last Taken Unknown] doxycycline monohydrate 100 mg capsule 100 mg PO BID 3 days #7 CAPSULES 10/23/22[Rx Last Taken Unknown] prednisone 20 mg tablet 40 mg PO DAILY 3 days #6 TABLETS 10/23/22 [Rx Last Taken Unknown] Allergy/AdvReac Type Severity Reaction Status Date / Time donepezil Allergy Severe shortness Verified 11/01/22 20:45 of breath risperidone Allergy Severe Confusion Verified 11/01/22 20:45 Sulfa (Sulfonamide Allergy Swelling Verified 11/01/22 20:45 Antibiotics) celecoxib [From Celebrex] AdvReac Severe Swelling Verified 11/01/22 20:45 dextromethorphan AdvReac Severe hallucinati Verified 11/01/22 20:45 [From Delsym] on adhesive AdvReac blisters Verified 11/01/22 20:45 codeine AdvReac Itching Verified 11/01/22 20:45 levofloxacin [From Levaquin] AdvReac pain in Verified 11/01/22 20:45 legs and swelling lisinopril AdvReac cough Verified 11/01/22 20:45 oxycodone [Oxycodone] AdvReac Itching Verified 11/01/22 20:45 oxycodone HCl [From Percocet] AdvReac Itching Verified 11/01/22 20:45 Penicillins AdvReac heart Verified 11/01/22 20:45 palpitations prochlorperazine edisylate AdvReac Low blood Verified 11/01/22 20:45 [From Compazine] pressure prochlorperazine maleate AdvReac Low blood Verified 11/01/22 20:45 [From Compazine] pressure tramadol HCl [From Ultram] AdvReac Itching Verified 11/01/22 20:45 Family History Mother Arthritis CAD (coronary artery disease) Father Arthritis High cholesterol CAD (coronary artery disease) Sister Diabetes High cholesterol Hypertension Brother Diabetes High cholesterol Hypertension Surgical History H/O aortic valve replacement History of back surgery History of foot surgery History of hysterectomy History of mechanical aortic valve replacement (~10/07/13) History of sinus surgery Social History household members: spouse Smoking Status: Never smoker alcohol intake: never substance use type: does not use caffeine: Yes Type: coffee what type of physical activity do you participate in: none seatbelt use: always do you feel safe at home: Yes ROS Constitutional Constitutional: Reports fatigue; Denies anorexia, change in weight, chills, fever(s), malaise, night sweats, weakness or other Eyes Eyes: Denies blurry vision, change in eye color, change in vision, discharge from eye(s), double vision, erythema, eye pain, loss of vision or other ENT HEENT: Denies abnormal hearing, dysphagia, ear pain, epistaxis, headache(s), hearing loss, nasal congestion, nasal discharge, post nasal drip, sinus pressure, sore throat or other Cardiovascular Cardiovascular: Reports chest pain and dyspnea on exertion; Denies claudication,edema, lightheadedness, orthopnea, palpitations, paroxysmal nocturnal dyspnea, rapid heart rate, syncope or other Respiratory/Chest Respiratory/Chest: Reports wheezing; Denies cough, dyspnea, excessive phlegm production, hemoptysis, productive cough, shortness of breath at rest, shortnessof breath with exertion or other Gastrointestinal Gastrointestinal: Denies abdominal pain, coffee ground emesis, constipation, diarrhea, dyspepsia, hematemesis, hematochezia, loose stools, melena, nausea, vomiting or other Genitourinary Genitourinary: Denies burning urination, difficulty urinating, dysuria, hematuria, nocturia, urinary frequency, urinary hesitancy, urinary incontinence,urinary urgency or other Musculoskeletal Musculoskeletal: Reports back pain; Denies arthralgias, joint pain, joint stiffness, joint swelling, myalgias, neck pain or other Neurologic Neurologic: Denies abnormal gait, abnormal speech, confusion, disequilibrium, dizziness, focal weakness, headache(s), numbness, paresthesias, seizure-like activity, seizures, syncope, tingling, tremor(s) or other Psychiatric Psychiatric: Reports anxiety and depression; Denies homicidal ideation, suicidalideation or other Endocrine Endocrinology: Denies change in body appearance, cold intolerance, excessive sweating, heat intolerance, polydipsia, polyuria or other Hematologic/Lymphatic Hematologic/Lymphatic: Denies anemia, easy bleeding, easy bruising, lymphadenopathy or other Allergic/Immunologic Allergic/Immunologic: Denies rhinitis, hives, eczemia, asthma or other Vital Signs Vital Signs Vital Signs: 11/01/22 20:43 Temperature 97.9 F Temperature Source Temporal Pulse Rate 88 Respiratory Rate 18 Blood Pressure 133/67 H Blood Pressure Mean 89 Pulse Ox 94 Oxygen Delivery Method Room Air Weight Weight: 56.4 kg Body Mass Index (BMI) 24.3 Physical Exam Const alert, oriented x3, no apparent distress, average body habitus and well nourished Constitutional Narrative: Elderly white female sitting up in bed, appears comfortable, nontoxic, currentlyon 2 L supplemental oxygen General Appearance: cooperative HEENT normocephalic, head/scalp atraumatic, hearing grossly normal bilaterally and moist oral mucous membranes HEENT Narrative: Mallampati is 2, no thrush, dentures in place Eyes PERRL, EOMs intact bilaterally and conjunctivae normal Eyes Narrative: No scleral icterus Neck no lymphadenopathy, supple, no JVD and no carotid bruits Neck Narrative: Trachea midline, no thyroid enlargement Resp normal respiratory effort, no retractions, no use of accessory muscles and No clear to auscultation bilaterally Resp Narrative: Diffuse scattered wheezing and expiratory end inspiratory but no signs of respiratory distress Auscultation: wheezes; Negative for rales or rhonchi Cardio regular rate, regular rhythm, S1 normal heart sound, S2 normal heart sound, no murmurs, no rub, no gallops and no JVD; Negative for no clicks Cardio Narrative: Positive click noted most notably at left upper sternal border GI normal to inspection, nondistended, normoactive bowel sounds, soft to palpation and non-tender Extremity no clubbing, cyanosis or edema Extremity Narrative: Pedal pulses are 2+, cap refill is 2+ Skin No no rashes or lesions noted, no wounds, skin turgor normal, no jaundice, no petechiae and no mottling Skin Narrative: Scattered ecchymosis Neuro oriented x3, CN's II-XII intact bilaterally, moves all extremities and no focal motor deficits Speech: speech normal Psych affect normal Psych Narrative: Slightly anxious, eye contact is good, interaction is normal Results Lab / Micro Data Result Diagrams: 11/01/22 21:14 11/01/22 21:14 Labs: Laboratory Results - last 24 hr 11/01/22 21:14: WBC 20.0 H, RBC 4.77, Hgb 13.4, Hct 43.3, MCV 90.8, MCH 28.1, MCHC 30.9 L, RDW Std Deviation 47.2 H, RDW Coeff of Loki 14.2, Plt Count 384, MPV10.2, Immature Gran % (Auto) 0.900, Neut % (Auto) 86.8 H, Lymph % (Auto) 5.1 L, [place] % (Auto) 6.5, Eos % (Auto) 0.4, Baso % (Auto) 0.3, Absolute Neuts (auto) 17.4 H, Absolute Lymphs (auto) 1.02, Nucleated RBC % 0 11/01/22 21:14: Sodium 140, Potassium 3.6, Chloride 103, Carbon Dioxide 31.0, Anion Gap 6, BUN 21 H, Creatinine 1.44 H, Estim Creat Clear Calc 23.50, Est GFR (MDRD) Af Amer 45 L, Est GFR (MDRD) Non-Af 37 L, BUN/Creatinine Ratio 14.6, Glucose 96, Calcium 9.5, Troponin I High Sens 389 H* Radiology Impression Chest X-Ray 11/01/22 21:11 IMPRESSION: Cardiomegaly without radiographic evidence of acute cardiopulmonary disease. Electronically Signed: Jean Mendiola MD at 21:50 EDT Reading Location ID and State: [facility] [place] Tel , Service support , Assessment & Plan Assessment/Plan (1) NSTEMI, initial episode of care: (2) Chest pain: (3) Leukocytosis: (4) ROXANA (acute kidney injury): PLAN: Plan Chest pain/NSTEMI -Initial troponin was elevated at 389 -EKG demonstrated no ST-T wave changes -Chest pain is currently resolved -Patient is on Coumadin at baseline but likely will hold--> trying to touch basewith cardiology for their recommendations with anticoagulation as I suspect patient will need cardiac catheterization -Cycle cardiac enzymes -Check echocardiogram -Continue home aspirin/metoprolol/statin/Zetia--> switch pravastatin 80 mg to Lipitor 80 mg -Patient with allergy to ARIADNA inhibitors--> could consider ARB as ARIADNA allergy was cough -Patient had recent lipid profile performed on 10/21/2022 and had a total cholesterol of 163/LDL 94/VLDL of 16/HDL of 53 -Change in statin as above -Cardiology consult ROXANA on CKD stage II -Baseline serum creatinine is 0.91 -Current serum creatinine 1.44 -Hold Lasix -Gentle hydration with LR at 50 cc an hour x1 L -Repeat BMP in a.m. Leukocytosis -Patient with recent admission for pneumonia and was placed on steroids -Suspect related to this from demargination and reactive from NSTEMI -Repeat CBC in a.m. Asthma/bronchiectasis -Continue home inhalers -As needed albuterol -Recommend continued outpatient follow-up with pulmonary medicine PAF -Currently in normal sinus rhythm -Continue beta-milka -Continue amiodarone -We will hold Coumadin for now until we hear from cardiology on how they would like us to proceed -Anticipate initiation of heparin drip CAD/HTN/HPL -As above History of mechanical aortic valve replacement -YTM-Erievxhuqd-Lodnpp, 2003, Redo AVR 10/10 (#21 On-X mechanical valve) -Goal INR is between 2 and 3 -INR is currently pending -On Coumadin at baseline -We will likely need to hold Coumadin as patient is expected to require cardiac catheterization Vitamin D deficiency -Continue ergocalciferol every Sunday GERD -Continue famotidine -Continue Protonix Lewy body dementia -Work-up pending at [facility] Main [place] Depression/anxiety -Continue as needed Ativan -Continue home paroxetine -Continue home Wellbutrin DVT prophylaxis -Patient is fully anticoagulated CODE STATUS -DNR CCA with no intubation Charges/Coding Visit Charges Inpatient E&M: 69144 Init Hosp L3 11/01/222321 <Electronically signed by Ivis Olvera DO> Cosigner Signature (if applicable): CC: Dr. Ivis Olvera DO; Dr. Kolby Kim MD~ Signed [facility] Work Phone: Hospital Discharge instructions Additional Instructions Continue on your current medications. Follow-up with your doctor if not improving. Return to emergency department if feeling worse.[facility] Work Phone: Hospital Discharge instructions Additional Instructions Please take the medicines that were prescribed for you at the last visit.[facility] Work Phone: Hospital Discharge instructions Additional Instructions Take the higher dose of coumadin tonigh t(4.5) and then call your doctor tomorrow for further instructions.[facility] Work Phone: Reason for referral (narrative)* Diagnostic Procedure Only (Routine) - Pending Review Specialty Diagnoses / Procedures Referred By Nadeem wells Referred To Contact [facility] Diagnoses Encounter for screening mammogram for malignant neoplasm of breast Procedures BABAK SCREENING W CHETNA SCREENING DIGITAL BREAST TOMOSYNTHESIS BI SCREENING MAMMOGRAPHY BI 2-VIEW BREAST INC CAD Kolby Kim MD [address] [place] [id number] [facility] [address] [place] [address] Referral ID Status Reason Start Date Expiration Date Visits Requested Visits Authorized [id number] Pending Review Auto-Generat ed Referral 2 08/09/[address] [facility] for referral (narrative)* Diagnostic Procedure Only (Routine) - Authorized Specialty Diagnoses / Procedures Referred By Nadeem wlels Referred To Contact [facility] Diagnoses Renal cyst Procedures US KIDNEY/BLADDER US RETROPERITONEAL REAL TIME W/IMAGE COMPLETE Kolby Kim MD [address] [place] [address] [facility] Referral ID Status Reason Start Date Expiration Date Visits Requested Visits Authorized [id number] Authorized Auto-Generat ed Referral 10/26/2022 11/25/2023 1 1 [facility] for referral (narrative)* Diagnostic Procedure Only (Routine) - Authorized Specialty Diagnoses / Procedures Referred By Contac t Referred To Contact XR IMAGING Diagnoses Dysphagia, unspecified type Procedures XR ESOPHAGRAM RADIOLOGIC EXAM ESOPHAGUS SINGLE CONTRAST STUDY Kolby Kim MD [address] [place] [address] [facility] Referral ID Status Reason Start Date Expiration Date Visits Requested Visits Authorized [id number] Authorized Auto-Generat ed Referral 02/26/2023 03/27/2024 1 1 [facility] for referral (narrative)* Diagnostic Procedure Only (Routine) - Closed Specialty Diagnoses / Procedures Referred By Contac t Referred To Contact XR IMAGING Diagnoses Dysphagia, unspecified type Procedures XR ESOPHAGRAM RADIOLOGIC EXAM ESOPHAGUS SINGLE CONTRAST STUDY Kolby Kim MD [address] [place] [address] [place] [address] Referral ID Status Reason Start Date Expiration Date V isits Requested Visits Authorized [id number] Closed Auto-Generate d Referral 02/26/2023 03/27/2024 1 1 [facility] for referral (narrative)* Diagnostic Procedure Only (Routine) - Closed Specialty Diagnoses / Procedures Referred By Contac t Referred To Contact XR IMAGING Diagnoses Compression fracture of thoracic vertebra, unspecified thoracic vertebral level, sequela Procedures XR THORACIC GENERAL 3V AP/LAT/SWIMMERS RADEX SPINE THORACIC 3 VIEWS Gilberto Virk MD [address] [place] [address] [place] [address] Referral ID Status Reason Start Date Expiration Date V isits Requested Visits Authorized [id number] Closed Auto-Generate d Referral 09/14/2022 10/14/2023 1 1 [facility] for referral (narrative)* Diagnostic Procedure Only (Routine) - Closed Specialty Diagnoses / Procedures Referred By Katherineac t Referred To Contact US IMAGING Diagnoses Renal cyst Procedures US KIDNEY/BLADDER US RETROPERITONEAL REAL TIME W/IMAGE COMPLETE Kolby Kim MD [address] [place] [address] Us Imaging [facility] Referral ID Status Reason Start Date Expiration Date V isits Requested Visits Authorized [id number] Closed Auto-Generate d Referral 10/26/2022 11/25/2023 1 1 [facility] for referral (narrative)* Outpatient Procedure (Routine) - Authorized Specialty Diagnoses / Procedures Referred By Nadeem wells Referred To Contact [facility] [place] Diagnoses Bilateral carotid artery stenosis Procedures US CAROTID ARTERIES [facility] DUPLEX SCAN EXTRACRANIAL ART COMPL BI STUDY Kolby Kim MD [address] [place] [address] [facility] [address] [address] Referral ID Status Reason Start Date Expiration Date Visits Requested Visits Authorized [id number] Authorized Auto-Generat ed Referral 06/26/2024 1 1 [facility] for referral (narrative)* Outpatient Procedure (Routine) - Pending Review Specialty Diagnoses / Procedures Referred By Katherineac t Referred To Contact [facility] [place] Diagnoses Chest pain, unspecified type Procedures ECG COMPLETE ECG ROUTINE ECG W/LEAST 12 LDS W/I&R Kolby Kim MD [address] [place] [address] [facility] [address] [address] Referral ID Status Reason Start Date Expiration Date Visits Requested Visits Authorized [id number] Pending Review Auto-Generat ed Referral 01/02/2024 01/01/2025 1 1 [facility] for referral (narrative)* Diagnostic Procedure Only (Routine) - Closed Specialty Diagnoses / Procedures Referred By Contac t Referred To Contact XR IMAGING Diagnoses Compression deformity of vertebra Procedures XR LUMBAR GENERAL 3V AP/LAT/L5-S1 RADEX SPINE LUMBOSACRAL 2/3 VIEWS Kolby Kim MD [address] [place] [address] [place] [address] Referral ID Status Reason Start Date Expiration Date V isits Requested Visits Authorized [id number] Closed Auto-Generate d Referral 07/06/2022 08/05/2023 1 1 [facility] for referral (narrative)No reason for referral [facility]: [facility] for visit Narrative* Diagnostic Procedure Only (Routine) - Closed Specialty Diagnoses / Procedures Referred By Contac t Referred To Contact XR IMAGING Diagnoses Dysphagia, unspecified type Procedures XR ESOPHAGRAM RADIOLOGIC EXAM ESOPHAGUS SINGLE CONTRAST STUDY Kolby Kim MD [address] [place] [address] [place] [address] Referral ID Status Reason Start Date Expiration Date V isits Requested Visits Authorized [id number] Closed Auto-Generate d Referral 02/26/2023 03/27/2024 1 1 [facility] for visit Narrative* Diagnostic Procedure Only (Routine) - Closed Specialty Diagnoses / Procedures Referred By Contac t Referred To Contact XR IMAGING Diagnoses Compression fracture of thoracic vertebra, unspecified thoracic vertebral level, sequela Procedures XR THORACIC GENERAL 3V AP/LAT/SWIMMERS RADEX SPINE THORACIC 3 VIEWS Gilberto Virk MD [address] [place] [address] [place] [address] Referral ID Status Reason Start Date Expiration Date V isits Requested Visits Authorized [id number] Closed Auto-Generate d Referral 09/14/2022 10/14/2023 1 1 [facility] for visit Narrative* Diagnostic Procedure Only (Routine) - Closed Specialty Diagnoses / Procedures Referred By Contac t Referred To Contact XR IMAGING Diagnoses Compression deformity of vertebra Procedures XR LUMBAR GENERAL 3V AP/LAT/L5-S1 RADEX SPINE LUMBOSACRAL 2/3 VIEWS Kolby Kim MD [address] [place] [address] [place] [address] Referral ID Status Reason Start Date Expiration Date V isits Requested Visits Authorized [id number] Closed Auto-Generate d Referral 07/06/2022 08/05/2023 1 1 [facility] Advance Directives No Advanced Directives Records FoundDocuments on File Type Date Recorded Patient Eyeglass Maker Expl anation Advance Directive(s) 09/18/2021 9:40 PM Advance Directive(s) 10/06/2013 4:31 PM Documents on File Type Date Recorded Patient Eyeglass Maker Expl anation Advance Directive(s) 11/03/2021 8:02 AM Advance Directive(s) 09/18/2021 9:40 PM Documents on File Type Date Recorded Patient Eyeglass Maker Expl anation Advance Directive(s) 11/03/2021 8:02 AM Advance Directive(s) 09/18/2021 9:40 PM Advance Directive Response Recorded Date/ Time Name of Medical Power of Steam Cleaning Machine Operator September 18, 2021 4:14pm Name of Medical Power of Steam Cleaning Machine Operator October 03, 2021 7:50pm Advance Directives Yes January 11 2:32pm Living Will Yes December 28, 2021 6 :40pm 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 December 28, 2021 6:40pm Advance Directive Response Recorded Date/ Time Name of Medical Power of Steam Cleaning Machine Operator October 03, 2021 7:50pm Name of Medical Power of Steam Cleaning Machine Operator TRENT CHU December 28, 2021 6:40pm Advance Directives Yes January 11 2:32pm Living Will No January 19, 2022 3:18pm Power of Steam Cleaning Machine Operator No January 19 3:18pm Documents on File Type Date Recorded Patient Eyeglass Maker Expl anation Advance Directive(s) 11/03/2021 8:02 AM Documents on File Type Date Recorded Patient Eyeglass Maker Expl anation Advance Directive(s) 11/03/2021 8:02 AM Advance Directive Response Recorded Date/ Time Advance Directives Yes January 11 1:32pm Living Will No May 24 7:53am Power of Steam Cleaning Machine Operator No May 24, 2022 7:53am Advance Directive Response Recorded Date/ Time Name of Medical Power of Steam Cleaning Machine Operator KLEBER/ August 12, 2022 3:50pm Advance Directives Yes January 11 1:32pm Living Will Yes August 12 3:50pm 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 August 12, 2022 3:50pm Advance Directive Response Recorded Date/ Time Name of Medical Power of Steam Cleaning Machine Operator KLEBER/ August 12, 2022 3:50pm Name of Medical Power of Steam Cleaning Machine Operator September 03, 2022 4:59pm Advance Directives Yes January 11 1:32pm Living Will Yes September 03 4:59pm 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 September 03, 2022 4:59pm Advance Directive Response Recorded Date/ Time Name of Medical Power of Steam Cleaning Machine Operator KLEBER/ August 12, 2022 4:50pm Name of Medical Power of Steam Cleaning Machine Operator September 03, 2022 5:59pm Name of Medical Power of Steam Cleaning Machine Operator TRENT CHU October 20, 2022 4:31pm Advance Directives Yes January 11 2:32pm Living Will Yes October 20, 2022 4:31pm 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 October 20 4:31pm Advance Directive Response Recorded Date/ Time Name of Medical Power of Steam Cleaning Machine Operator KLEBER/ August 12, 2022 4:50pm Name of Medical Power of Steam Cleaning Machine Operator September 03, 2022 5:59pm Name of Medical Power of Steam Cleaning Machine Operator Trent Chu October 20, 2022 8:58pm Advance Directives Yes January 11 2:32pm Living Will Yes October 20, 2022 8:58pm 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 October 20 8:58pm Advance Directive Response Recorded Date/ Time Name of Medical Power of Steam Cleaning Machine Operator KLEBER/ August 12, 2022 4:50pm Name of Medical Power of Steam Cleaning Machine Operator September 03, 2022 5:59pm Name of Medical Power of Steam Cleaning Machine Operator Trent Chu October 20, 2022 8:58pm Name of Medical Power of Steam Cleaning Machine Operator Trent Chu November 01, 2022 9:10pm Advance Directives Yes January 11 2:32pm Living Will Yes November 01, 2022 9:10pm 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 November 01 9:10pm Advance Directive Response Recorded Date/ Time Name of Medical Power of Steam Cleaning Machine Operator KLEBER/ August 12, 2022 4:50pm Name of Medical Power of Steam Cleaning Machine Operator September 03, 2022 5:59pm Name of Medical Power of Steam Cleaning Machine Operator Trent Chu October 20, 2022 8:58pm Name of Medical Power of Steam Cleaning Machine Operator guillermina hawkins nd November 02, 2022 12:37am Advance Directives Yes January 11 2:32pm Living Will Yes November 02, 2022 12:37am 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 November 02 12:37am Advance Directive Response Recorded Date/ Time Name of Medical Power of Steam Cleaning Machine Operator KLEBER/ August 12, 2022 4:50pm Name of Medical Power of Steam Cleaning Machine Operator September 03, 2022 5:59pm Name of Medical Power of Steam Cleaning Machine Operator Trent Chu October 20, 2022 8:58pm Name of Medical Power of Steam Cleaning Machine Operator guillermina hawkins nd November 02, 2022 12:37am Name of Medical Power of Steam Cleaning Machine Operator November 13, 2022 4:30pm Advance Directives Yes January 11 2:32pm Living Will Yes November 13, 2022 4:30pm 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 November 13 4:30pm Advance Directive Response Recorded Date/ Time Name of Medical Power of Steam Cleaning Machine Operator September 03, 2022 5:59pm Name of Medical Power of Steam Cleaning Machine Operator Trent Chu October 20, 2022 8:58pm Name of Medical Power of Steam Cleaning Machine Operator guillermina hawkins nd November 02, 2022 12:37am Name of Medical Power of Steam Cleaning Machine Operator November 13, 2022 4:30pm Name of Medical Power of Steam Cleaning Machine Operator Trent Gaby December 26, 2022 3:01pm Advance Directives Yes January 11 2:32pm Living Will Yes December 26, 2022 3 :01pm 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 December 26, 2022 3:01pm Advance Directive Response Recorded Date/ Time Name of Medical Power of Steam Cleaning Machine Operator November 13, 2022 4:30pm Name of Medical Power of Steam Cleaning Machine Operator Trent Chu December 26, 2022 3:01pm Name of Medical Power of Steam Cleaning Machine Operator Guillermina Chu January 13, 2023 6:23am Name of Medical Power of Steam Cleaning Machine Operator trent rojas March 08, 2023 4:23pm Advance Directives Yes January 11 2:32pm Living Will Yes March 08 4:23pm 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 March 08, 2 023 4:23pm Advance Directive Response Recorded Date/ Time Name of Medical Power of Steam Cleaning Machine Operator Trent Chu December 26, 2022 3:01pm Name of Medical Power of Steam Cleaning Machine Operator Guillermina Chu January 13, 2023 6:23am Name of Medical Power of Steam Cleaning Machine Operator trent rojas March 08, 2023 4:23pm Name of Medical Power of Steam Cleaning Machine Operator Trent Chu April 11, 2023 5:37pm Advance Directives Yes January 11 2:32pm Living Will Yes April 11, 2023 5:37pm 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 March 5:37pm Advance Directive Response Recorded Date/ Time Advance Directives Yes January 11 2:32pm Reason for Referral Specialty Diagnoses / Procedures Referred By Contac t Referred To Contact Neurology Diagnoses Lewy body dementia without behavioral disturbance (HCC) Procedures [facility]ULT TO [facility] OFFICE[facility] 60-74 [facility]UTES Kolby Kim MD [address] [place] [address] Referral ID Status Reason Start Date Expiration Date Visits Requested Visits Authorized [id number] Authorized PCP Requested Referral 12/07/2021 12/07/2022 1 1 Specialty Diagnoses / Procedures Referred By Contac t Referred To Contact Neurology Diagnoses Parkinsonism, unspecified Parkinsonism type (HCC) Procedures CONSULT TO [facility]OLOGY OFFICE[facility] 60-74 MINUTES Radha Sanchez MD [address] [address] Referral ID Status Reason Start Date Expiration Date Visits Requested Visits Authorized [id number] Authorized PCP Requested Referral 05/05/2022 05/05/2023 1 1 Specialty Diagnoses / Procedures Referred By Contac t Referred To Contact CT IMAGING Diagnoses Radiculopathy of lumbar region Spinal stenosis of lumbar region with neurogenic claudication Procedures CT LUMBAR SPINE WO IVCON CT LUMBAR SPINE W/O CONTRAST MATERIAL Gilberto Virk MD [address] [place] [address] Ct Imaging Referral ID Status Reason Start Date Expiration Date Visits Requested Visits Authorized [id number] Authorized Auto-Generat ed Referral 09/14/2022 10/14/2023 1 1 Specialty Diagnoses / Procedures Referred By Contac t Referred To Contact XR IMAGING Diagnoses Compression fracture of thoracic vertebra, unspecified thoracic vertebral level, sequela Procedures XR THORACIC GENERAL 3V AP/LAT/SWIMMERS RADEX SPINE THORACIC 3 VIEWS Gilberto Virk MD [address] [place] [address] Xr Imaging Referral ID Status Reason Start Date Expiration Date Visits Requested Visits Authorized [id number] Authorized Auto-Generat ed Referral 09/14/2022 10/14/2023 1 1 Specialty Diagnoses / Procedures Referred By Contac t Referred To Contact XR IMAGING Diagnoses Compression fracture of lumbar spine, non-traumatic, sequela Procedures XR LUMBAR SPNE COMP 6V AP/LAT/BOTH OBL/FLEX/EXT (AK) RADEX SPINE LUMBSCRL COMPL W/BENDING VIEWS MIN 6 Gilberto Virk MD [address] [place] [address] Xr Imaging Referral ID Status Reason Start Date Expiration Date Visits Requested Visits Authorized [id number] Authorized Auto-Generat ed Referral 09/14/2022 10/14/2023 1 1 Specialty Diagnoses / Procedures Referred By Contac t Referred To Contact CT IMAGING Diagnoses Interstitial pulmonary disease (HCC) Procedures CT CHEST W IVCON DIAGNOSTIC COMPUTED TOMOGRAPHY THORAX W/CONTRAST Jas Harrell PA-C [address] [place] [address] Ct Imaging Referral ID Status Reason Start Date Expiration Date Visits Requested Visits Authorized [id number] Pending Review Auto-Generat ed Referral 10/04/2022 10/30/2023 1 1 Specialty Diagnoses / Procedures Referred By Contac t Referred To Contact Endocrinology Diagnoses Compression deformity of vertebra Compression fracture of thoracic vertebra, unspecified thoracic vertebral level, sequela Compression fracture of lumbar spine, non-traumatic, sequela Procedures CONSULT TO [facility]OCRINOLOGY OFFICE[facility] 60-74 MINUTES Gilberto Virk MD [address] [place] [address] Referral ID Status Reason Start Date Expiration Date Visits Requested Visits Authorized [id number] Authorized PCP Requested Referral 10/04/2022 10/04/2023 1 1 Chief Complaint and Reason for Visit Chief Complaint fall CP 3 M FU NEED ORDER 3 M FU EYE PROBLEM Reason for Visit Bronchiectasis Dyspnea on exertion Atherosclerotic heart disease of [place] coronary artery without angina pectoris Chronic diastolic heart failure Essential hypertension History of mechanical aortic valve replacement Hyperlipidemia PAF (paroxysmal atrial fibrillation) Chief Complaint CP 3 M FU NEED ORDER 3 M FU EYE PROBLEM neuro Reason for Visit Bronchiectasis Dyspnea on exertion Atherosclerotic heart disease of [place] coronary artery without angina pectoris Chronic diastolic heart failure Essential hypertension History of mechanical aortic valve replacement Hyperlipidemia PAF (paroxysmal atrial fibrillation) Chief Complaint 6 M FU 1 Y FU BODY ACHES Paroxysmal atrial fibrillation Reason for Visit Bronchiectasis Hypoxemia Atherosclerotic heart disease of [place] coronary artery without angina pectoris Chronic diastolic heart failure Essential hypertension History of mechanical aortic valve replacement Hyperlipidemia PAF (paroxysmal atrial fibrillation) Chief Complaint 1 Y FU BODY ACHES Paroxysmal atrial fibrillation 3 M FU SOB SOB Reason for Visit Atherosclerotic hear t disease of [place] coronary artery without angina pectoris Chronic diastolic heart failure Essential hypertension History of mechanical aortic valve replacement Hyperlipidemia PAF (paroxysmal atrial fibrillation) Bronchiectasis Chief Complaint 1 Y FU BODY ACHES Paroxysmal atrial fibrillation 3 M FU SOB SOB sob, cough Reason for Visit Atherosclerotic hear t disease of [place] coronary artery without angina pectoris Chronic diastolic heart failure Essential hypertension History of mechanical aortic valve replacement Hyperlipidemia PAF (paroxysmal atrial fibrillation) Bronchiectasis Chief Complaint 3 M FU SOB SOB sob, cough HYPOXIA, SUSPECTED PNA, POSS VIRAL Reason for Visit Bronchiectasis Chief Complaint 3 M FU SOB SOB sob, cough HYPOXIA, SUSPECTED PNA, POSS VIRAL HYPOXIA, SUSPECTED PNA, POSS VIRAL HYPOXIA, SUSPECTED PNA, POSS VIRAL Reason for Visit Bronchiectasis Pneumonia Chief Complaint 3 M FU SOB SOB sob, cough HYPOXIA, SUSPECTED PNA, POSS VIRAL HYPOXIA, SUSPECTED PNA, POSS VIRAL HYPOXIA, SUSPECTED PNA, POSS VIRAL HYPOXIA, SUSPECTED PNA, POSS VIRAL CHEST PAIN NSTEMI Reason for Visit Bronchiectasis ROXANA (acute kidney injury) Chest pain Leukocytosis NSTEMI, initial episode of care Chief Complaint SOB SOB sob, cough HYPOXIA, SUSPECTED PNA, POSS VIRAL HYPOXIA, SUSPECTED PNA, POSS VIRAL HYPOXIA, SUSPECTED PNA, POSS VIRAL HYPOXIA, SUSPECTED PNA, POSS VIRAL CHEST PAIN NSTEMI NSTEMI NSTEMI NSTEMI NSTEMI Reason for Visit ROXANA (acute kidney in jury) Chest pain Leukocytosis NSTEMI, initial episode of care COPD (chronic obstructive pulmonary disease) Essential hypertension History of mechanical aortic valve replacement PAF (paroxysmal atrial fibrillation) Chief Complaint SOB SOB sob, cough HYPOXIA, SUSPECTED PNA, POSS VIRAL HYPOXIA, SUSPECTED PNA, POSS VIRAL HYPOXIA, SUSPECTED PNA, POSS VIRAL HYPOXIA, SUSPECTED PNA, POSS VIRAL CHEST PAIN NSTEMI NSTEMI NSTEMI NSTEMI NSTEMI Hospital FU general illness Reason for Visit ROXANA (acute kidney in jury) Chest pain Leukocytosis COPD (chronic obstructive pulmonary disease) Essential hypertension History of mechanical aortic valve replacement PAF (paroxysmal atrial fibrillation) Oral thrush Bronchiectasis Chronic sinusitis COPD (chronic obstructive pulmonary disease) Hypoxemia Chief Complaint sob, cough HYPOXIA, SUSPECTED PNA, POSS VIRAL HYPOXIA, SUSPECTED PNA, POSS VIRAL HYPOXIA, SUSPECTED PNA, POSS VIRAL HYPOXIA, SUSPECTED PNA, POSS VIRAL CHEST PAIN NSTEMI NSTEMI NSTEMI NSTEMI NSTEMI Hospital FU general illness S/P [facility] 11-03-22 6 M FU BRONCHITIS BRONCHITIS SOB Reason for Visit ROXANA (acute kidney in jury) Chest pain Leukocytosis COPD (chronic obstructive pulmonary disease) Essential hypertension History of mechanical aortic valve replacement PAF (paroxysmal atrial fibrillation) Oral thrush Bronchiectasis Chronic sinusitis COPD (chronic obstructive pulmonary disease) Hypoxemia Atherosclerotic heart disease of [place] coronary artery without angina pectoris Chronic diastolic heart failure Essential hypertension History of mechanical aortic valve replacement Hyperlipidemia PAF (paroxysmal atrial fibrillation) Bronchiectasis Chief Complaint Hospital FU general illness S/P [facility] 11-03-22 6 M FU BRONCHITIS BRONCHITIS SOB Nosebleed COPD follow-up 3 M FU sob,cough past 3 days Reason for Visit Oral thrush Bronchiectasis Chronic sinusitis COPD (chronic obstructive pulmonary disease) Hypoxemia Atherosclerotic heart disease of [place] coronary artery without angina pectoris Chronic diastolic heart failure Essential hypertension History of mechanical aortic valve replacement Hyperlipidemia PAF (paroxysmal atrial fibrillation) Bronchiectasis Bronchiectasis Atherosclerotic heart disease of [place] coronary artery without angina pectoris Chronic diastolic heart failure Essential hypertension History of mechanical aortic valve replacement Hyperlipidemia PAF (paroxysmal atrial fibrillation) Chief Complaint BRONCHITIS BRONCHITIS SOB Nosebleed COPD follow-up 3 M FU sob,cough past 3 days SOB Reason for Visit Bronchiectasis Atherosclerotic heart disease of [place] coronary artery without angina pectoris Chronic diastolic heart failure Essential hypertension History of mechanical aortic valve replacement Hyperlipidemia PAF (paroxysmal atrial fibrillation) Chief Complaint Admit Date 6 M FU March 23, 2025 1: 23pm Family History No Family History Records Found Relationship Condition Age at Onset Recorded Date/T mike mother Arthritis Unknown Coronary artery disease Unknown father Arthritis Unknown High blood cholesterol Unknown sister Diabetes mellitus Unknown Hypertension Unknown brother Diabetes mellitus Unknown Summary Purpose Additional Source Comments Source Comments (unrecognize d section and content) In the event this informatio n is protected by the Federal Confidentiality of Alcohol and Drug Abuse Patient Records regulations: The Federal rules restrict any use of the information to criminally investigate or prosecute any alcohol or drug abuse patient.[facility] the event this information is protected by the Federal Confidentiality of Alcohol and Drug Abuse Patient Records regulations: The Federal rules restrict any use of the information to criminally investigate or prosecute any alcohol or drug abuse patient.[facility] HospitalIn the event this information is protected by the Federal Confidentiality of Alcohol and Drug Abuse Patient Records regulations: The Federal rules restrict any use of the information to criminally investigate or prosecute any alcohol or drug abuse patient.[facility] HospitalIn the event this information is protected by the Federal Confidentiality of Alcohol and Drug Abuse Patient Records regulations: The Federal rules restrict any use of the information to criminally investigate or prosecute any alcohol or drug abuse patient.[facility] HospitalIn the event this information is protected by the Federal Confidentiality of Alcohol and Drug Abuse Patient Records regulations: The Federal rules restrict any use of the information to criminally investigate or prosecute any alcohol or drug abuse patient.[facility] HospitalIn the event this information is protected by the Federal Confidentiality of Alcohol and Drug Abuse Patient Records regulations: The Federal rules restrict any use of the information to criminally investigate or prosecute any alcohol or drug abuse patient.[facility] HospitalIn the event this information is protected by the Federal Confidentiality of Alcohol and Drug Abuse Patient Records regulations: The Federal rules restrict any use of the information to criminally investigate or prosecute any alcohol or drug abuse patient.[facility] HospitalIn the event this information is protected by the Federal Confidentiality of Alcohol and Drug Abuse Patient Records regulations: The Federal rules restrict any use of the information to criminally investigate or prosecute any alcohol or drug abuse patient.[facility] HospitalIn the event this information is protected by the Federal Confidentiality of Alcohol and Drug Abuse Patient Records regulations: The Federal rules restrict any use of the information to criminally investigate or prosecute any alcohol or drug abuse patient.[facility] HospitalIn the event this information is protected by the Federal Confidentiality of Alcohol and Drug Abuse Patient Records regulations: The Federal rules restrict any use of the information to criminally investigate or prosecute any alcohol or drug abuse patient.[facility] HospitalIn the event this information is protected by the Federal Confidentiality of Alcohol and Drug Abuse Patient Records regulations: The Federal rules restrict any use of the information to criminally investigate or prosecute any alcohol or drug abuse patient.[facility] HospitalIn the event this information is protected by the Federal Confidentiality of Alcohol and Drug Abuse Patient Records regulations: The Federal rules restrict any use of the information to criminally investigate or prosecute any alcohol or drug abuse patient.[facility] HospitalIn the event this information is protected by the Federal Confidentiality of Alcohol and Drug Abuse Patient Records regulations: The Federal rules restrict any use of the information to criminally investigate or prosecute any alcohol or drug abuse patient.[facility] HospitalIn the event this information is protected by the Federal Confidentiality of Alcohol and Drug Abuse Patient Records regulations: The Federal rules restrict any use of the information to criminally investigate or prosecute any alcohol or drug abuse patient.[facility] HospitalIn the event this information is protected by the Federal Confidentiality of Alcohol and Drug Abuse Patient Records regulations: The Federal rules restrict any use of the information to criminally investigate or prosecute any alcohol or drug abuse patient.[facility] HospitalIn the event this information is protected by the Federal Confidentiality of Alcohol and Drug Abuse Patient Records regulations: The Federal rules restrict any use of the information to criminally investigate or prosecute any alcohol or drug abuse patient.[facility] HospitalIn the event this information is protected by the Federal Confidentiality of Alcohol and Drug Abuse Patient Records regulations: The Federal rules restrict any use of the information to criminally investigate or prosecute any alcohol or drug abuse patient.[facility] HospitalIn the event this information is protected by the Federal Confidentiality of Alcohol and Drug Abuse Patient Records regulations: The Federal rules restrict any use of the information to criminally investigate or prosecute any alcohol or drug abuse patient.[facility] HospitalIn the event this information is protected by the Federal Confidentiality of Alcohol and Drug Abuse Patient Records regulations: The Federal rules restrict any use of the information to criminally investigate or prosecute any alcohol or drug abuse patient.[facility] HospitalIn the event this information is protected by the Federal Confidentiality of Alcohol and Drug Abuse Patient Records regulations: The Federal rules restrict any use of the information to criminally investigate or prosecute any alcohol or drug abuse patient.[facility] HospitalIn the event this information is protected by the Federal Confidentiality of Alcohol and Drug Abuse Patient Records regulations: The Federal rules restrict any use of the information to criminally investigate or prosecute any alcohol or drug abuse patient.[facility] HospitalIn the event this information is protected by the Federal Confidentiality of Alcohol and Drug Abuse Patient Records regulations: The Federal rules restrict any use of the information to criminally investigate or prosecute any alcohol or drug abuse patient.[facility]In the event this information is protected by the Federal Confidentiality of Alcohol and Drug Abuse Patient Records regulations: The Federal rules restrict any use of the information to criminally investigate or prosecute any alcohol or drug abuse patient.[facility] HospitalIn the event this information is protected by the Federal Confidentiality of Alcohol and Drug Abuse Patient Records regulations: The Federal rules restrict any use of the information to criminally investigate or prosecute any alcohol or drug abuse patient.[facility] HospitalIn the event this information is protected by the Federal Confidentiality of Alcohol and Drug Abuse Patient Records regulations: The Federal rules restrict any use of the information to criminally investigate or prosecute any alcohol or drug abuse patient.[facility] HospitalIn the event this information is protected by the Federal Confidentiality of Alcohol and Drug Abuse Patient Records regulations: The Federal rules restrict any use of the information to criminally investigate or prosecute any alcohol or drug abuse patient.[facility] HospitalIn the event this information is protected by the Federal Confidentiality of Alcohol and Drug Abuse Patient Records regulations: The Federal rules restrict any use of the information to criminally investigate or prosecute any alcohol or drug abuse patient.[facility] HospitalIn the event this information is protected by the Federal Confidentiality of Alcohol and Drug Abuse Patient Records regulations: The Federal rules restrict any use of the information to criminally investigate or prosecute any alcohol or drug abuse patient.[facility] HospitalIn the event this information is protected by the Federal Confidentiality of Alcohol and Drug Abuse Patient Records regulations: The Federal rules restrict any use of the information to criminally investigate or prosecute any alcohol or drug abuse patient.[facility] HospitalIn the event this information is protected by the Federal Confidentiality of Alcohol and Drug Abuse Patient Records regulations: The Federal rules restrict any use of the information to criminally investigate or prosecute any alcohol or drug abuse patient.[facility] HospitalIn the event this information is protected by the Federal Confidentiality of Alcohol and Drug Abuse Patient Records regulations: The Federal rules restrict any use of the information to criminally investigate or prosecute any alcohol or drug abuse patient.[facility] HospitalIn the event this information is protected by the Federal Confidentiality of Alcohol and Drug Abuse Patient Records regulations: The Federal rules restrict any use of the information to criminally investigate or prosecute any alcohol or drug abuse patient.[facility] HospitalIn the event this information is protected by the Federal Confidentiality of Alcohol and Drug Abuse Patient Records regulations: The Federal rules restrict any use of the information to criminally investigate or prosecute any alcohol or drug abuse patient.[facility] HospitalIn the event this information is protected by the Federal Confidentiality of Alcohol and Drug Abuse Patient Records regulations: The Federal rules restrict any use of the information to criminally investigate or prosecute any alcohol or drug abuse patient.[facility] HospitalIn the event this information is protected by the Federal Confidentiality of Alcohol and Drug Abuse Patient Records regulations: The Federal rules restrict any use of the information to criminally investigate or prosecute any alcohol or drug abuse patient.[facility] HospitalIn the event this information is protected by the Federal Confidentiality of Alcohol and Drug Abuse Patient Records regulations: The Federal rules restrict any use of the information to criminally investigate or prosecute any alcohol or drug abuse patient.[facility] HospitalIn the event this information is protected by the Federal Confidentiality of Alcohol and Drug Abuse Patient Records regulations: The Federal rules restrict any use of the information to criminally investigate or prosecute any alcohol or drug abuse patient.[facility] HospitalIn the event this information is protected by the Federal Confidentiality of Alcohol and Drug Abuse Patient Records regulations: The Federal rules restrict any use of the information to criminally investigate or prosecute any alcohol or drug abuse patient.[facility] HospitalIn the event this information is protected by the Federal Confidentiality of Alcohol and Drug Abuse Patient Records regulations: The Federal rules restrict any use of the information to criminally investigate or prosecute any alcohol or drug abuse patient.[facility] HospitalIn the event this information is protected by the Federal Confidentiality of Alcohol and Drug Abuse Patient Records regulations: The Federal rules restrict any use of the information to criminally investigate or prosecute any alcohol or drug abuse patient.[facility] HospitalIn the event this information is protected by the Federal Confidentiality of Alcohol and Drug Abuse Patient Records regulations: The Federal rules restrict any use of the information to criminally investigate or prosecute any alcohol or drug abuse patient.[facility] HospitalIn the event this information is protected by the Federal Confidentiality of Alcohol and Drug Abuse Patient Records regulations: The Federal rules restrict any use of the information to criminally investigate or prosecute any alcohol or drug abuse patient.[facility] HospitalIn the event this information is protected by the Federal Confidentiality of Alcohol and Drug Abuse Patient Records regulations: The Federal rules restrict any use of the information to criminally investigate or prosecute any alcohol or drug abuse patient.[facility] HospitalIn the event this information is protected by the Federal Confidentiality of Alcohol and Drug Abuse Patient Records regulations: The Federal rules restrict any use of the information to criminally investigate or prosecute any alcohol or drug abuse patient.[facility] HospitalIn the event this information is protected by the Federal Confidentiality of Alcohol and Drug Abuse Patient Records regulations: The Federal rules restrict any use of the information to criminally investigate or prosecute any alcohol or drug abuse patient.[facility] HospitalIn the event this information is protected by the Federal Confidentiality of Alcohol and Drug Abuse Patient Records regulations: The Federal rules restrict any use of the information to criminally investigate or prosecute any alcohol or drug abuse patient.[facility] HospitalIn the event this information is protected by the Federal Confidentiality of Alcohol and Drug Abuse Patient Records regulations: The Federal rules restrict any use of the information to criminally investigate or prosecute any alcohol or drug abuse patient.[facility] HospitalIn the event this information is protected by the Federal Confidentiality of Alcohol and Drug Abuse Patient Records regulations: The Federal rules restrict any use of the information to criminally investigate or prosecute any alcohol or drug abuse patient.[facility] HospitalIn the event this information is protected by the Federal Confidentiality of Alcohol and Drug Abuse Patient Records regulations: The Federal rules restrict any use of the information to criminally investigate or prosecute any alcohol or drug abuse patient.[facility] HospitalIn the event this information is protected by the Federal Confidentiality of Alcohol and Drug Abuse Patient Records regulations: The Federal rules restrict any use of the information to criminally investigate or prosecute any alcohol or drug abuse patient.[facility] HospitalIn the event this information is protected by the Federal Confidentiality of Alcohol and Drug Abuse Patient Records regulations: The Federal rules restrict any use of the information to criminally investigate or prosecute any alcohol or drug abuse patient.[facility] HospitalIn the event this information is protected by the Federal Confidentiality of Alcohol and Drug Abuse Patient Records regulations: The Federal rules restrict any use of the information to criminally investigate or prosecute any alcohol or drug abuse patient.[facility] HospitalIn the event this information is protected by the Federal Confidentiality of Alcohol and Drug Abuse Patient Records regulations: The Federal rules restrict any use of the information to criminally investigate or prosecute any alcohol or drug abuse patient.[facility] HospitalIn the event this information is protected by the Federal Confidentiality of Alcohol and Drug Abuse Patient Records regulations: The Federal rules restrict any use of the information to criminally investigate or prosecute any alcohol or drug abuse patient.[facility] HospitalIn the event this information is protected by the Federal Confidentiality of Alcohol and Drug Abuse Patient Records regulations: The Federal rules restrict any use of the information to criminally investigate or prosecute any alcohol or drug abuse patient.[facility] HospitalIn the event this information is protected by the Federal Confidentiality of Alcohol and Drug Abuse Patient Records regulations: The Federal rules restrict any use of the information to criminally investigate or prosecute any alcohol or drug abuse patient.[facility] HospitalIn the event this information is protected by the Federal Confidentiality of Alcohol and Drug Abuse Patient Records regulations: The Federal rules restrict any use of the information to criminally investigate or prosecute any alcohol or drug abuse patient.[facility] HospitalIn the event this information is protected by the Federal Confidentiality of Alcohol and Drug Abuse Patient Records regulations: The Federal rules restrict any use of the information to criminally investigate or prosecute any alcohol or drug abuse patient.[facility] HospitalIn the event this information is protected by the Federal Confidentiality of Alcohol and Drug Abuse Patient Records regulations: The Federal rules restrict any use of the information to criminally investigate or prosecute any alcohol or drug abuse patient.[facility] HospitalIn the event this information is protected by the Federal Confidentiality of Alcohol and Drug Abuse Patient Records regulations: The Federal rules restrict any use of the information to criminally investigate or prosecute any alcohol or drug abuse patient.[facility] HospitalIn the event this information is protected by the Federal Confidentiality of Alcohol and Drug Abuse Patient Records regulations: The Federal rules restrict any use of the information to criminally investigate or prosecute any alcohol or drug abuse patient.[facility] HospitalIn the event this information is protected by the Federal Confidentiality of Alcohol and Drug Abuse Patient Records regulations: The Federal rules restrict any use of the information to criminally investigate or prosecute any alcohol or drug abuse patient.[facility] HospitalIn the event this information is protected by the Federal Confidentiality of Alcohol and Drug Abuse Patient Records regulations: The Federal rules restrict any use of the information to criminally investigate or prosecute any alcohol or drug abuse patient.[facility] HospitalIn the event this information is protected by the Federal Confidentiality of Alcohol and Drug Abuse Patient Records regulations: The Federal rules restrict any use of the information to criminally investigate or prosecute any alcohol or drug abuse patient.[facility] HospitalIn the event this information is protected by the Federal Confidentiality of Alcohol and Drug Abuse Patient Records regulations: The Federal rules restrict any use of the information to criminally investigate or prosecute any alcohol or drug abuse patient.[facility] HospitalIn the event this information is protected by the Federal Confidentiality of Alcohol and Drug Abuse Patient Records regulations: The Federal rules restrict any use of the information to criminally investigate or prosecute any alcohol or drug abuse patient.[facility] HospitalIn the event this information is protected by the Federal Confidentiality of Alcohol and Drug Abuse Patient Records regulations: The Federal rules restrict any use of the information to criminally investigate or prosecute any alcohol or drug abuse patient.[facility] HospitalIn the event this information is protected by the Federal Confidentiality of Alcohol and Drug Abuse Patient Records regulations: The Federal rules restrict any use of the information to criminally investigate or prosecute any alcohol or drug abuse patient.[facility] HospitalIn the event this information is protected by the Federal Confidentiality of Alcohol and Drug Abuse Patient Records regulations: The Federal rules restrict any use of the information to criminally investigate or prosecute any alcohol or drug abuse patient.[facility] HospitalIn the event this information is protected by the Federal Confidentiality of Alcohol and Drug Abuse Patient Records regulations: The Federal rules restrict any use of the information to criminally investigate or prosecute any alcohol or drug abuse patient.[facility] HospitalIn the event this information is protected by the Federal Confidentiality of Alcohol and Drug Abuse Patient Records regulations: The Federal rules restrict any use of the information to criminally investigate or prosecute any alcohol or drug abuse patient.[facility] HospitalIn the event this information is protected by the Federal Confidentiality of Alcohol and Drug Abuse Patient Records regulations: The Federal rules restrict any use of the information to criminally investigate or prosecute any alcohol or drug abuse patient.[facility]In the event this information is protected by the Federal Confidentiality of Alcohol and Drug Abuse Patient Records regulations: The Federal rules restrict any use of the information to criminally investigate or prosecute any alcohol or drug abuse patient.[facility] HospitalIn the event this information is protected by the Federal Confidentiality of Alcohol and Drug Abuse Patient Records regulations: The Federal rules restrict any use of the information to criminally investigate or prosecute any alcohol or drug abuse patient.[facility] HospitalIn the event this information is protected by the Federal Confidentiality of Alcohol and Drug Abuse Patient Records regulations: The Federal rules restrict any use of the information to criminally investigate or prosecute any alcohol or drug abuse patient.[facility] HospitalIn the event this information is protected by the Federal Confidentiality of Alcohol and Drug Abuse Patient Records regulations: The Federal rules restrict any use of the information to criminally investigate or prosecute any alcohol or drug abuse patient.[facility] HospitalIn the event this information is protected by the Federal Confidentiality of Alcohol and Drug Abuse Patient Records regulations: The Federal rules restrict any use of the information to criminally investigate or prosecute any alcohol or drug abuse patient.[facility] HospitalIn the event this information is protected by the Federal Confidentiality of Alcohol and Drug Abuse Patient Records regulations: The Federal rules restrict any use of the information to criminally investigate or prosecute any alcohol or drug abuse patient.[facility] HospitalIn the event this information is protected by the Federal Confidentiality of Alcohol and Drug Abuse Patient Records regulations: The Federal rules restrict any use of the information to criminally investigate or prosecute any alcohol or drug abuse patient.[facility] HospitalIn the event this information is protected by the Federal Confidentiality of Alcohol and Drug Abuse Patient Records regulations: The Federal rules restrict any use of the information to criminally investigate or prosecute any alcohol or drug abuse patient.[facility] HospitalIn the event this information is protected by the Federal Confidentiality of Alcohol and Drug Abuse Patient Records regulations: The Federal rules restrict any use of the information to criminally investigate or prosecute any alcohol or drug abuse patient.[facility] HospitalIn the event this information is protected by the Federal Confidentiality of Alcohol and Drug Abuse Patient Records regulations: The Federal rules restrict any use of the information to criminally investigate or prosecute any alcohol or drug abuse patient.[facility] HospitalIn the event this information is protected by the Federal Confidentiality of Alcohol and Drug Abuse Patient Records regulations: The Federal rules restrict any use of the information to criminally investigate or prosecute any alcohol or drug abuse patient.[facility] HospitalIn the event this information is protected by the Federal Confidentiality of Alcohol and Drug Abuse Patient Records regulations: The Federal rules restrict any use of the information to criminally investigate or prosecute any alcohol or drug abuse patient.[facility] HospitalIn the event this information is protected by the Federal Confidentiality of Alcohol and Drug Abuse Patient Records regulations: The Federal rules restrict any use of the information to criminally investigate or prosecute any alcohol or drug abuse patient.[facility] HospitalIn the event this information is protected by the Federal Confidentiality of Alcohol and Drug Abuse Patient Records regulations: The Federal rules restrict any use of the information to criminally investigate or prosecute any alcohol or drug abuse patient.[facility] HospitalIn the event this information is protected by the Federal Confidentiality of Alcohol and Drug Abuse Patient Records regulations: The Federal rules restrict any use of the information to criminally investigate or prosecute any alcohol or drug abuse patient.[facility] HospitalIn the event this information is protected by the Federal Confidentiality of Alcohol and Drug Abuse Patient Records regulations: The Federal rules restrict any use of the information to criminally investigate or prosecute any alcohol or drug abuse patient.[facility] HospitalIn the event this information is protected by the Federal Confidentiality of Alcohol and Drug Abuse Patient Records regulations: The Federal rules restrict any use of the information to criminally investigate or prosecute any alcohol or drug abuse patient.[facility] HospitalIn the event this information is protected by the Federal Confidentiality of Alcohol and Drug Abuse Patient Records regulations: The Federal rules restrict any use of the information to criminally investigate or prosecute any alcohol or drug abuse patient.[facility] HospitalIn the event this information is protected by the Federal Confidentiality of Alcohol and Drug Abuse Patient Records regulations: The Federal rules restrict any use of the information to criminally investigate or prosecute any alcohol or drug abuse patient.[facility] HospitalIn the event this information is protected by the Federal Confidentiality of Alcohol and Drug Abuse Patient Records regulations: The Federal rules restrict any use of the information to criminally investigate or prosecute any alcohol or drug abuse patient.[facility] HospitalIn the event this information is protected by the Federal Confidentiality of Alcohol and Drug Abuse Patient Records regulations: The Federal rules restrict any use of the information to criminally investigate or prosecute any alcohol or drug abuse patient.[facility] HospitalIn the event this information is protected by the Federal Confidentiality of Alcohol and Drug Abuse Patient Records regulations: The Federal rules restrict any use of the information to criminally investigate or prosecute any alcohol or drug abuse patient.[facility] HospitalIn the event this information is protected by the Federal Confidentiality of Alcohol and Drug Abuse Patient Records regulations: The Federal rules restrict any use of the information to criminally investigate or prosecute any alcohol or drug abuse patient.[facility] HospitalIn the event this information is protected by the Federal Confidentiality of Alcohol and Drug Abuse Patient Records regulations: The Federal rules restrict any use of the information to criminally investigate or prosecute any alcohol or drug abuse patient.[facility] HospitalIn the event this information is protected by the Federal Confidentiality of Alcohol and Drug Abuse Patient Records regulations: The Federal rules restrict any use of the information to criminally investigate or prosecute any alcohol or drug abuse patient.[facility] HospitalIn the event this information is protected by the Federal Confidentiality of Alcohol and Drug Abuse Patient Records regulations: The Federal rules restrict any use of the information to criminally investigate or prosecute any alcohol or drug abuse patient.[facility] HospitalIn the event this information is protected by the Federal Confidentiality of Alcohol and Drug Abuse Patient Records regulations: The Federal rules restrict any use of the information to criminally investigate or prosecute any alcohol or drug abuse patient.[facility] HospitalIn the event this information is protected by the Federal Confidentiality of Alcohol and Drug Abuse Patient Records regulations: The Federal rules restrict any use of the information to criminally investigate or prosecute any alcohol or drug abuse patient.[facility] HospitalIn the event this information is protected by the Federal Confidentiality of Alcohol and Drug Abuse Patient Records regulations: The Federal rules restrict any use of the information to criminally investigate or prosecute any alcohol or drug abuse patient.[facility] HospitalIn the event this information is protected by the Federal Confidentiality of Alcohol and Drug Abuse Patient Records regulations: The Federal rules restrict any use of the information to criminally investigate or prosecute any alcohol or drug abuse patient.[facility] HospitalIn the event this information is protected by the Federal Confidentiality of Alcohol and Drug Abuse Patient Records regulations: The Federal rules restrict any use of the information to criminally investigate or prosecute any alcohol or drug abuse patient.[facility] HospitalIn the event this information is protected by the Federal Confidentiality of Alcohol and Drug Abuse Patient Records regulations: The Federal rules restrict any use of the information to criminally investigate or prosecute any alcohol or drug abuse patient.[facility] HospitalIn the event this information is protected by the Federal Confidentiality of Alcohol and Drug Abuse Patient Records regulations: The Federal rules restrict any use of the information to criminally investigate or prosecute any alcohol or drug abuse patient.[facility] HospitalIn the event this information is protected by the Federal Confidentiality of Alcohol and Drug Abuse Patient Records regulations: The Federal rules restrict any use of the information to criminally investigate or prosecute any alcohol or drug abuse patient.[facility] HospitalIn the event this information is protected by the Federal Confidentiality of Alcohol and Drug Abuse Patient Records regulations: The Federal rules restrict any use of the information to criminally investigate or prosecute any alcohol or drug abuse patient.[facility] HospitalIn the event this information is protected by the Federal Confidentiality of Alcohol and Drug Abuse Patient Records regulations: The Federal rules restrict any use of the information to criminally investigate or prosecute any alcohol or drug abuse patient.[facility] HospitalIn the event this information is protected by the Federal Confidentiality of Alcohol and Drug Abuse Patient Records regulations: The Federal rules restrict any use of the information to criminally investigate or prosecute any alcohol or drug abuse patient.[facility] HospitalIn the event this information is protected by the Federal Confidentiality of Alcohol and Drug Abuse Patient Records regulations: The Federal rules restrict any use of the information to criminally investigate or prosecute any alcohol or drug abuse patient.[facility] HospitalIn the event this information is protected by the Federal Confidentiality of Alcohol and Drug Abuse Patient Records regulations: The Federal rules restrict any use of the information to criminally investigate or prosecute any alcohol or drug abuse patient.[facility] HospitalIn the event this information is protected by the Federal Confidentiality of Alcohol and Drug Abuse Patient Records regulations: The Federal rules restrict any use of the information to criminally investigate or prosecute any alcohol or drug abuse patient.[facility] HospitalIn the event this information is protected by the Federal Confidentiality of Alcohol and Drug Abuse Patient Records regulations: The Federal rules restrict any use of the information to criminally investigate or prosecute any alcohol or drug abuse patient.[facility] HospitalIn the event this information is protected by the Federal Confidentiality of Alcohol and Drug Abuse Patient Records regulations: The Federal rules restrict any use of the information to criminally investigate or prosecute any alcohol or drug abuse patient.[facility] HospitalIn the event this information is protected by the Federal Confidentiality of Alcohol and Drug Abuse Patient Records regulations: The Federal rules restrict any use of the information to criminally investigate or prosecute any alcohol or drug abuse patient.[facility] HospitalIn the event this information is protected by the Federal Confidentiality of Alcohol and Drug Abuse Patient Records regulations: The Federal rules restrict any use of the information to criminally investigate or prosecute any alcohol or drug abuse patient.[facility] HospitalIn the event this information is protected by the Federal Confidentiality of Alcohol and Drug Abuse Patient Records regulations: The Federal rules restrict any use of the information to criminally investigate or prosecute any alcohol or drug abuse patient.[facility] HospitalIn the event this information is protected by the Federal Confidentiality of Alcohol and Drug Abuse Patient Records regulations: The Federal rules restrict any use of the information to criminally investigate or prosecute any alcohol or drug abuse patient.[facility] HospitalIn the event this information is protected by the Federal Confidentiality of Alcohol and Drug Abuse Patient Records regulations: The Federal rules restrict any use of the information to criminally investigate or prosecute any alcohol or drug abuse patient.[facility] HospitalIn the event this information is protected by the Federal Confidentiality of Alcohol and Drug Abuse Patient Records regulations: The Federal rules restrict any use of the information to criminally investigate or prosecute any alcohol or drug abuse patient.[facility] HospitalIn the event this information is protected by the Federal Confidentiality of Alcohol and Drug Abuse Patient Records regulations: The Federal rules restrict any use of the information to criminally investigate or prosecute any alcohol or drug abuse patient.[facility] HospitalIn the event this information is protected by the Federal Confidentiality of Alcohol and Drug Abuse Patient Records regulations: The Federal rules restrict any use of the information to criminally investigate or prosecute any alcohol or drug abuse patient.[facility]In the event this information is protected by the Federal Confidentiality of Alcohol and Drug Abuse Patient Records regulations: The Federal rules restrict any use of the information to criminally investigate or prosecute any alcohol or drug abuse patient.[facility] HospitalIn the event this information is protected by the Federal Confidentiality of Alcohol and Drug Abuse Patient Records regulations: The Federal rules restrict any use of the information to criminally investigate or prosecute any alcohol or drug abuse patient.[facility] HospitalIn the event this information is protected by the Federal Confidentiality of Alcohol and Drug Abuse Patient Records regulations: The Federal rules restrict any use of the information to criminally investigate or prosecute any alcohol or drug abuse patient.[facility] HospitalIn the event this information is protected by the Federal Confidentiality of Alcohol and Drug Abuse Patient Records regulations: The Federal rules restrict any use of the information to criminally investigate or prosecute any alcohol or drug abuse patient.[facility] HospitalIn the event this information is protected by the Federal Confidentiality of Alcohol and Drug Abuse Patient Records regulations: The Federal rules restrict any use of the information to criminally investigate or prosecute any alcohol or drug abuse patient.[facility] HospitalIn the event this information is protected by the Federal Confidentiality of Alcohol and Drug Abuse Patient Records regulations: The Federal rules restrict any use of the information to criminally investigate or prosecute any alcohol or drug abuse patient.[facility] HospitalIn the event this information is protected by the Federal Confidentiality of Alcohol and Drug Abuse Patient Records regulations: The Federal rules restrict any use of the information to criminally investigate or prosecute any alcohol or drug abuse patient.[facility] HospitalIn the event this information is protected by the Federal Confidentiality of Alcohol and Drug Abuse Patient Records regulations: The Federal rules restrict any use of the information to criminally investigate or prosecute any alcohol or drug abuse patient.[facility] HospitalIn the event this information is protected by the Federal Confidentiality of Alcohol and Drug Abuse Patient Records regulations: The Federal rules restrict any use of the information to criminally investigate or prosecute any alcohol or drug abuse patient.[facility] HospitalIn the event this information is protected by the Federal Confidentiality of Alcohol and Drug Abuse Patient Records regulations: The Federal rules restrict any use of the information to criminally investigate or prosecute any alcohol or drug abuse patient.[facility] HospitalIn the event this information is protected by the Federal Confidentiality of Alcohol and Drug Abuse Patient Records regulations: The Federal rules restrict any use of the information to criminally investigate or prosecute any alcohol or drug abuse patient.[facility] HospitalIn the event this information is protected by the Federal Confidentiality of Alcohol and Drug Abuse Patient Records regulations: The Federal rules restrict any use of the information to criminally investigate or prosecute any alcohol or drug abuse patient.[facility] HospitalIn the event this information is protected by the Federal Confidentiality of Alcohol and Drug Abuse Patient Records regulations: The Federal rules restrict any use of the information to criminally investigate or prosecute any alcohol or drug abuse patient.[facility] HospitalIn the event this information is protected by the Federal Confidentiality of Alcohol and Drug Abuse Patient Records regulations: The Federal rules restrict any use of the information to criminally investigate or prosecute any alcohol or drug abuse patient.[facility] HospitalIn the event this information is protected by the Federal Confidentiality of Alcohol and Drug Abuse Patient Records regulations: The Federal rules restrict any use of the information to criminally investigate or prosecute any alcohol or drug abuse patient.[facility] HospitalIn the event this information is protected by the Federal Confidentiality of Alcohol and Drug Abuse Patient Records regulations: The Federal rules restrict any use of the information to criminally investigate or prosecute any alcohol or drug abuse patient.[facility] HospitalIn the event this information is protected by the Federal Confidentiality of Alcohol and Drug Abuse Patient Records regulations: The Federal rules restrict any use of the information to criminally investigate or prosecute any alcohol or drug abuse patient.[facility] HospitalIn the event this information is protected by the Federal Confidentiality of Alcohol and Drug Abuse Patient Records regulations: The Federal rules restrict any use of the information to criminally investigate or prosecute any alcohol or drug abuse patient.[facility] HospitalIn the event this information is protected by the Federal Confidentiality of Alcohol and Drug Abuse Patient Records regulations: The Federal rules restrict any use of the information to criminally investigate or prosecute any alcohol or drug abuse patient.[facility] HospitalIn the event this information is protected by the Federal Confidentiality of Alcohol and Drug Abuse Patient Records regulations: The Federal rules restrict any use of the information to criminally investigate or prosecute any alcohol or drug abuse patient.[facility] HospitalIn the event this information is protected by the Federal Confidentiality of Alcohol and Drug Abuse Patient Records regulations: The Federal rules restrict any use of the information to criminally investigate or prosecute any alcohol or drug abuse patient.[facility] HospitalIn the event this information is protected by the Federal Confidentiality of Alcohol and Drug Abuse Patient Records regulations: The Federal rules restrict any use of the information to criminally investigate or prosecute any alcohol or drug abuse patient.[facility] HospitalIn the event this information is protected by the Federal Confidentiality of Alcohol and Drug Abuse Patient Records regulations: The Federal rules restrict any use of the information to criminally investigate or prosecute any alcohol or drug abuse patient.[facility] HospitalIn the event this information is protected by the Federal Confidentiality of Alcohol and Drug Abuse Patient Records regulations: The Federal rules restrict any use of the information to criminally investigate or prosecute any alcohol or drug abuse patient.[facility] HospitalIn the event this information is protected by the Federal Confidentiality of Alcohol and Drug Abuse Patient Records regulations: The Federal rules restrict any use of the information to criminally investigate or prosecute any alcohol or drug abuse patient.[facility] HospitalIn the event this information is protected by the Federal Confidentiality of Alcohol and Drug Abuse Patient Records regulations: The Federal rules restrict any use of the information to criminally investigate or prosecute any alcohol or drug abuse patient.[facility] HospitalIn the event this information is protected by the Federal Confidentiality of Alcohol and Drug Abuse Patient Records regulations: The Federal rules restrict any use of the information to criminally investigate or prosecute any alcohol or drug abuse patient.[facility] HospitalIn the event this information is protected by the Federal Confidentiality of Alcohol and Drug Abuse Patient Records regulations: The Federal rules restrict any use of the information to criminally investigate or prosecute any alcohol or drug abuse patient.[facility] HospitalIn the event this information is protected by the Federal Confidentiality of Alcohol and Drug Abuse Patient Records regulations: The Federal rules restrict any use of the information to criminally investigate or prosecute any alcohol or drug abuse patient.[facility] HospitalIn the event this information is protected by the Federal Confidentiality of Alcohol and Drug Abuse Patient Records regulations: The Federal rules restrict any use of the information to criminally investigate or prosecute any alcohol or drug abuse patient.[facility] HospitalIn the event this information is protected by the Federal Confidentiality of Alcohol and Drug Abuse Patient Records regulations: The Federal rules restrict any use of the information to criminally investigate or prosecute any alcohol or drug abuse patient.[facility] HospitalIn the event this information is protected by the Federal Confidentiality of Alcohol and Drug Abuse Patient Records regulations: The Federal rules restrict any use of the information to criminally investigate or prosecute any alcohol or drug abuse patient.[facility] HospitalIn the event this information is protected by the Federal Confidentiality of Alcohol and Drug Abuse Patient Records regulations: The Federal rules restrict any use of the information to criminally investigate or prosecute any alcohol or drug abuse patient.[facility] HospitalIn the event this information is protected by the Federal Confidentiality of Alcohol and Drug Abuse Patient Records regulations: The Federal rules restrict any use of the information to criminally investigate or prosecute any alcohol or drug abuse patient.[facility] HospitalIn the event this information is protected by the Federal Confidentiality of Alcohol and Drug Abuse Patient Records regulations: The Federal rules restrict any use of the information to criminally investigate or prosecute any alcohol or drug abuse patient.[facility] HospitalIn the event this information is protected by the Federal Confidentiality of Alcohol and Drug Abuse Patient Records regulations: The Federal rules restrict any use of the information to criminally investigate or prosecute any alcohol or drug abuse patient.[facility] HospitalIn the event this information is protected by the Federal Confidentiality of Alcohol and Drug Abuse Patient Records regulations: The Federal rules restrict any use of the information to criminally investigate or prosecute any alcohol or drug abuse patient.[facility] HospitalIn the event this information is protected by the Federal Confidentiality of Alcohol and Drug Abuse Patient Records regulations: The Federal rules restrict any use of the information to criminally investigate or prosecute any alcohol or drug abuse patient.[facility] HospitalIn the event this information is protected by the Federal Confidentiality of Alcohol and Drug Abuse Patient Records regulations: The Federal rules restrict any use of the information to criminally investigate or prosecute any alcohol or drug abuse patient.[facility] HospitalIn the event this information is protected by the Federal Confidentiality of Alcohol and Drug Abuse Patient Records regulations: The Federal rules restrict any use of the information to criminally investigate or prosecute any alcohol or drug abuse patient.[facility] HospitalIn the event this information is protected by the Federal Confidentiality of Alcohol and Drug Abuse Patient Records regulations: The Federal rules restrict any use of the information to criminally investigate or prosecute any alcohol or drug abuse patient.[facility] HospitalIn the event this information is protected by the Federal Confidentiality of Alcohol and Drug Abuse Patient Records regulations: The Federal rules restrict any use of the information to criminally investigate or prosecute any alcohol or drug abuse patient.[facility] HospitalIn the event this information is protected by the Federal Confidentiality of Alcohol and Drug Abuse Patient Records regulations: The Federal rules restrict any use of the information to criminally investigate or prosecute any alcohol or drug abuse patient.[facility] HospitalIn the event this information is protected by the Federal Confidentiality of Alcohol and Drug Abuse Patient Records regulations: The Federal rules restrict any use of the information to criminally investigate or prosecute any alcohol or drug abuse patient.[facility] HospitalIn the event this information is protected by the Federal Confidentiality of Alcohol and Drug Abuse Patient Records regulations: The Federal rules restrict any use of the information to criminally investigate or prosecute any alcohol or drug abuse patient.[facility] HospitalIn the event this information is protected by the Federal Confidentiality of Alcohol and Drug Abuse Patient Records regulations: The Federal rules restrict any use of the information to criminally investigate or prosecute any alcohol or drug abuse patient.[facility] HospitalIn the event this information is protected by the Federal Confidentiality of Alcohol and Drug Abuse Patient Records regulations: The Federal rules restrict any use of the information to criminally investigate or prosecute any alcohol or drug abuse patient.[facility] HospitalIn the event this information is protected by the Federal Confidentiality of Alcohol and Drug Abuse Patient Records regulations: The Federal rules restrict any use of the information to criminally investigate or prosecute any alcohol or drug abuse patient.[facility] HospitalIn the event this information is protected by the Federal Confidentiality of Alcohol and Drug Abuse Patient Records regulations: The Federal rules restrict any use of the information to criminally investigate or prosecute any alcohol or drug abuse patient.[facility] HospitalIn the event this information is protected by the Federal Confidentiality of Alcohol and Drug Abuse Patient Records regulations: The Federal rules restrict any use of the information to criminally investigate or prosecute any alcohol or drug abuse patient.[facility]In the event this information is protected by the Federal Confidentiality of Alcohol and Drug Abuse Patient Records regulations: The Federal rules restrict any use of the information to criminally investigate or prosecute any alcohol or drug abuse patient.[facility] HospitalIn the event this information is protected by the Federal Confidentiality of Alcohol and Drug Abuse Patient Records regulations: The Federal rules restrict any use of the information to criminally investigate or prosecute any alcohol or drug abuse patient.[facility] HospitalIn the event this information is protected by the Federal Confidentiality of Alcohol and Drug Abuse Patient Records regulations: The Federal rules restrict any use of the information to criminally investigate or prosecute any alcohol or drug abuse patient.[facility] HospitalIn the event this information is protected by the Federal Confidentiality of Alcohol and Drug Abuse Patient Records regulations: The Federal rules restrict any use of the information to criminally investigate or prosecute any alcohol or drug abuse patient.[facility] HospitalIn the event this information is protected by the Federal Confidentiality of Alcohol and Drug Abuse Patient Records regulations: The Federal rules restrict any use of the information to criminally investigate or prosecute any alcohol or drug abuse patient.[facility] HospitalIn the event this information is protected by the Federal Confidentiality of Alcohol and Drug Abuse Patient Records regulations: The Federal rules restrict any use of the information to criminally investigate or prosecute any alcohol or drug abuse patient.[facility] HospitalIn the event this information is protected by the Federal Confidentiality of Alcohol and Drug Abuse Patient Records regulations: The Federal rules restrict any use of the information to criminally investigate or prosecute any alcohol or drug abuse patient.[facility] HospitalIn the event this information is protected by the Federal Confidentiality of Alcohol and Drug Abuse Patient Records regulations: The Federal rules restrict any use of the information to criminally investigate or prosecute any alcohol or drug abuse patient.[facility] HospitalIn the event this information is protected by the Federal Confidentiality of Alcohol and Drug Abuse Patient Records regulations: The Federal rules restrict any use of the information to criminally investigate or prosecute any alcohol or drug abuse patient.[facility] HospitalIn the event this information is protected by the Federal Confidentiality of Alcohol and Drug Abuse Patient Records regulations: The Federal rules restrict any use of the information to criminally investigate or prosecute any alcohol or drug abuse patient.[facility] HospitalIn the event this information is protected by the Federal Confidentiality of Alcohol and Drug Abuse Patient Records regulations: The Federal rules restrict any use of the information to criminally investigate or prosecute any alcohol or drug abuse patient.[facility] HospitalIn the event this information is protected by the Federal Confidentiality of Alcohol and Drug Abuse Patient Records regulations: The Federal rules restrict any use of the information to criminally investigate or prosecute any alcohol or drug abuse patient.[facility] HospitalIn the event this information is protected by the Federal Confidentiality of Alcohol and Drug Abuse Patient Records regulations: The Federal rules restrict any use of the information to criminally investigate or prosecute any alcohol or drug abuse patient.[facility] HospitalIn the event this information is protected by the Federal Confidentiality of Alcohol and Drug Abuse Patient Records regulations: The Federal rules restrict any use of the information to criminally investigate or prosecute any alcohol or drug abuse patient.[facility] HospitalIn the event this information is protected by the Federal Confidentiality of Alcohol and Drug Abuse Patient Records regulations: The Federal rules restrict any use of the information to criminally investigate or prosecute any alcohol or drug abuse patient.[facility] HospitalIn the event this information is protected by the Federal Confidentiality of Alcohol and Drug Abuse Patient Records regulations: The Federal rules restrict any use of the information to criminally investigate or prosecute any alcohol or drug abuse patient.[facility] HospitalIn the event this information is protected by the Federal Confidentiality of Alcohol and Drug Abuse Patient Records regulations: The Federal rules restrict any use of the information to criminally investigate or prosecute any alcohol or drug abuse patient.[facility] HospitalIn the event this information is protected by the Federal Confidentiality of Alcohol and Drug Abuse Patient Records regulations: The Federal rules restrict any use of the information to criminally investigate or prosecute any alcohol or drug abuse patient.[facility] HospitalIn the event this information is protected by the Federal Confidentiality of Alcohol and Drug Abuse Patient Records regulations: The Federal rules restrict any use of the information to criminally investigate or prosecute any alcohol or drug abuse patient.[facility] HospitalIn the event this information is protected by the Federal Confidentiality of Alcohol and Drug Abuse Patient Records regulations: The Federal rules restrict any use of the information to criminally investigate or prosecute any alcohol or drug abuse patient.[facility] HospitalIn the event this information is protected by the Federal Confidentiality of Alcohol and Drug Abuse Patient Records regulations: The Federal rules restrict any use of the information to criminally investigate or prosecute any alcohol or drug abuse patient.[facility] HospitalIn the event this information is protected by the Federal Confidentiality of Alcohol and Drug Abuse Patient Records regulations: The Federal rules restrict any use of the information to criminally investigate or prosecute any alcohol or drug abuse patient.[facility] HospitalIn the event this information is protected by the Federal Confidentiality of Alcohol and Drug Abuse Patient Records regulations: The Federal rules restrict any use of the information to criminally investigate or prosecute any alcohol or drug abuse patient.[facility] HospitalIn the event this information is protected by the Federal Confidentiality of Alcohol and Drug Abuse Patient Records regulations: The Federal rules restrict any use of the information to criminally investigate or prosecute any alcohol or drug abuse patient.[facility] HospitalIn the event this information is protected by the Federal Confidentiality of Alcohol and Drug Abuse Patient Records regulations: The Federal rules restrict any use of the information to criminally investigate or prosecute any alcohol or drug abuse patient.[facility] HospitalIn the event this information is protected by the Federal Confidentiality of Alcohol and Drug Abuse Patient Records regulations: The Federal rules restrict any use of the information to criminally investigate or prosecute any alcohol or drug abuse patient.[facility] HospitalIn the event this information is protected by the Federal Confidentiality of Alcohol and Drug Abuse Patient Records regulations: The Federal rules restrict any use of the information to criminally investigate or prosecute any alcohol or drug abuse patient.[facility] HospitalIn the event this information is protected by the Federal Confidentiality of Alcohol and Drug Abuse Patient Records regulations: The Federal rules restrict any use of the information to criminally investigate or prosecute any alcohol or drug abuse patient.[facility] HospitalIn the event this information is protected by the Federal Confidentiality of Alcohol and Drug Abuse Patient Records regulations: The Federal rules restrict any use of the information to criminally investigate or prosecute any alcohol or drug abuse patient.[facility] HospitalIn the event this information is protected by the Federal Confidentiality of Alcohol and Drug Abuse Patient Records regulations: The Federal rules restrict any use of the information to criminally investigate or prosecute any alcohol or drug abuse patient.[facility] HospitalIn the event this information is protected by the Federal Confidentiality of Alcohol and Drug Abuse Patient Records regulations: The Federal rules restrict any use of the information to criminally investigate or prosecute any alcohol or drug abuse patient.[facility] HospitalIn the event this information is protected by the Federal Confidentiality of Alcohol and Drug Abuse Patient Records regulations: The Federal rules restrict any use of the information to criminally investigate or prosecute any alcohol or drug abuse patient.[facility] HospitalIn the event this information is protected by the Federal Confidentiality of Alcohol and Drug Abuse Patient Records regulations: The Federal rules restrict any use of the information to criminally investigate or prosecute any alcohol or drug abuse patient.[facility] HospitalIn the event this information is protected by the Federal Confidentiality of Alcohol and Drug Abuse Patient Records regulations: The Federal rules restrict any use of the information to criminally investigate or prosecute any alcohol or drug abuse patient.[facility] HospitalIn the event this information is protected by the Federal Confidentiality of Alcohol and Drug Abuse Patient Records regulations: The Federal rules restrict any use of the information to criminally investigate or prosecute any alcohol or drug abuse patient.[facility] HospitalIn the event this information is protected by the Federal Confidentiality of Alcohol and Drug Abuse Patient Records regulations: The Federal rules restrict any use of the information to criminally investigate or prosecute any alcohol or drug abuse patient.[facility] HospitalIn the event this information is protected by the Federal Confidentiality of Alcohol and Drug Abuse Patient Records regulations: The Federal rules restrict any use of the information to criminally investigate or prosecute any alcohol or drug abuse patient.[facility] HospitalIn the event this information is protected by the Federal Confidentiality of Alcohol and Drug Abuse Patient Records regulations: The Federal rules restrict any use of the information to criminally investigate or prosecute any alcohol or drug abuse patient.[facility] HospitalIn the event this information is protected by the Federal Confidentiality of Alcohol and Drug Abuse Patient Records regulations: The Federal rules restrict any use of the information to criminally investigate or prosecute any alcohol or drug abuse patient.[facility] HospitalIn the event this information is protected by the Federal Confidentiality of Alcohol and Drug Abuse Patient Records regulations: The Federal rules restrict any use of the information to criminally investigate or prosecute any alcohol or drug abuse patient.[facility] HospitalIn the event this information is protected by the Federal Confidentiality of Alcohol and Drug Abuse Patient Records regulations: The Federal rules restrict any use of the information to criminally investigate or prosecute any alcohol or drug abuse patient.[facility] HospitalIn the event this information is protected by the Federal Confidentiality of Alcohol and Drug Abuse Patient Records regulations: The Federal rules restrict any use of the information to criminally investigate or prosecute any alcohol or drug abuse patient.[facility] HospitalIn the event this information is protected by the Federal Confidentiality of Alcohol and Drug Abuse Patient Records regulations: The Federal rules restrict any use of the information to criminally investigate or prosecute any alcohol or drug abuse patient.[facility] HospitalIn the event this information is protected by the Federal Confidentiality of Alcohol and Drug Abuse Patient Records regulations: The Federal rules restrict any use of the information to criminally investigate or prosecute any alcohol or drug abuse patient.[facility] HospitalIn the event this information is protected by the Federal Confidentiality of Alcohol and Drug Abuse Patient Records regulations: The Federal rules restrict any use of the information to criminally investigate or prosecute any alcohol or drug abuse patient.[facility] HospitalIn the event this information is protected by the Federal Confidentiality of Alcohol and Drug Abuse Patient Records regulations: The Federal rules restrict any use of the information to criminally investigate or prosecute any alcohol or drug abuse patient.[facility] HospitalIn the event this information is protected by the Federal Confidentiality of Alcohol and Drug Abuse Patient Records regulations: The Federal rules restrict any use of the information to criminally investigate or prosecute any alcohol or drug abuse patient.[facility] HospitalIn the event this information is protected by the Federal Confidentiality of Alcohol and Drug Abuse Patient Records regulations: The Federal rules restrict any use of the information to criminally investigate or prosecute any alcohol or drug abuse patient.[facility] HospitalIn the event this information is protected by the Federal Confidentiality of Alcohol and Drug Abuse Patient Records regulations: The Federal rules restrict any use of the information to criminally investigate or prosecute any alcohol or drug abuse patient.[facility] HospitalIn the event this information is protected by the Federal Confidentiality of Alcohol and Drug Abuse Patient Records regulations: The Federal rules restrict any use of the information to criminally investigate or prosecute any alcohol or drug abuse patient.[facility] ClinicIn the event this information is protected by the Federal Confidentiality of Alcohol and Drug Abuse Patient Records regulations: The Federal rules restrict any use of the information to criminally investigate or prosecute any alcohol or drug abuse patient.[facility] HospitalIn the event this information is protected by the Federal Confidentiality of Alcohol and Drug Abuse Patient Records regulations: The Federal rules restrict any use of the information to criminally investigate or prosecute any alcohol or drug abuse patient.[facility] HospitalIn the event this information is protected by the Federal Confidentiality of Alcohol and Drug Abuse Patient Records regulations: The Federal rules restrict any use of the information to criminally investigate or prosecute any alcohol or drug abuse patient.[facility] HospitalIn the event this information is protected by the Federal Confidentiality of Alcohol and Drug Abuse Patient Records regulations: The Federal rules restrict any use of the information to criminally investigate or prosecute any alcohol or drug abuse patient.[facility] HospitalIn the event this information is protected by the Federal Confidentiality of Alcohol and Drug Abuse Patient Records regulations: The Federal rules restrict any use of the information to criminally investigate or prosecute any alcohol or drug abuse patient.[facility] HospitalIn the event this information is protected by the Federal Confidentiality of Alcohol and Drug Abuse Patient Records regulations: The Federal rules restrict any use of the information to criminally investigate or prosecute any alcohol or drug abuse patient.[facility] HospitalIn the event this information is protected by the Federal Confidentiality of Alcohol and Drug Abuse Patient Records regulations: The Federal rules restrict any use of the information to criminally investigate or prosecute any alcohol or drug abuse patient.[facility] HospitalIn the event this information is protected by the Federal Confidentiality of Alcohol and Drug Abuse Patient Records regulations: The Federal rules restrict any use of the information to criminally investigate or prosecute any alcohol or drug abuse patient.[facility] HospitalIn the event this information is protected by the Federal Confidentiality of Alcohol and Drug Abuse Patient Records regulations: The Federal rules restrict any use of the information to criminally investigate or prosecute any alcohol or drug abuse patient.[facility] HospitalIn the event this information is protected by the Federal Confidentiality of Alcohol and Drug Abuse Patient Records regulations: The Federal rules restrict any use of the information to criminally investigate or prosecute any alcohol or drug abuse patient.[facility] HospitalIn the event this information is protected by the Federal Confidentiality of Alcohol and Drug Abuse Patient Records regulations: The Federal rules restrict any use of the information to criminally investigate or prosecute any alcohol or drug abuse patient.[facility] HospitalIn the event this information is protected by the Federal Confidentiality of Alcohol and Drug Abuse Patient Records regulations: The Federal rules restrict any use of the information to criminally investigate or prosecute any alcohol or drug abuse patient.[facility] HospitalIn the event this information is protected by the Federal Confidentiality of Alcohol and Drug Abuse Patient Records regulations: The Federal rules restrict any use of the information to criminally investigate or prosecute any alcohol or drug abuse patient.[facility] HospitalIn the event this information is protected by the Federal Confidentiality of Alcohol and Drug Abuse Patient Records regulations: The Federal rules restrict any use of the information to criminally investigate or prosecute any alcohol or drug abuse patient.[facility] HospitalIn the event this information is protected by the Federal Confidentiality of Alcohol and Drug Abuse Patient Records regulations: The Federal rules restrict any use of the information to criminally investigate or prosecute any alcohol or drug abuse patient.[facility] HospitalIn the event this information is protected by the Federal Confidentiality of Alcohol and Drug Abuse Patient Records regulations: The Federal rules restrict any use of the information to criminally investigate or prosecute any alcohol or drug abuse patient.[facility] HospitalIn the event this information is protected by the Federal Confidentiality of Alcohol and Drug Abuse Patient Records regulations: The Federal rules restrict any use of the information to criminally investigate or prosecute any alcohol or drug abuse patient.[facility] HospitalIn the event this information is protected by the Federal Confidentiality of Alcohol and Drug Abuse Patient Records regulations: The Federal rules restrict any use of the information to criminally investigate or prosecute any alcohol or drug abuse patient.[facility] HospitalIn the event this information is protected by the Federal Confidentiality of Alcohol and Drug Abuse Patient Records regulations: The Federal rules restrict any use of the information to criminally investigate or prosecute any alcohol or drug abuse patient.[facility] HospitalIn the event this information is protected by the Federal Confidentiality of Alcohol and Drug Abuse Patient Records regulations: The Federal rules restrict any use of the information to criminally investigate or prosecute any alcohol or drug abuse patient.[facility] HospitalIn the event this information is protected by the Federal Confidentiality of Alcohol and Drug Abuse Patient Records regulations: The Federal rules restrict any use of the information to criminally investigate or prosecute any alcohol or drug abuse patient.[facility] HospitalIn the event this information is protected by the Federal Confidentiality of Alcohol and Drug Abuse Patient Records regulations: The Federal rules restrict any use of the information to criminally investigate or prosecute any alcohol or drug abuse patient.[facility] Reason for Visit (unrecogniz ed section and content) Reason Comments ED Follow-up had fever of 100.4 w as feeling better but ER called her and asked if she had seen PCP for follow up Fall also seen in ER and transferred to [place] for possible bleed but was ok Reason Onset Date Comments Community Monitoring Outreach 10/20/2021 Te [facility] Follow Up Reason Onset Date Comments Community Monitoring Outreach 11/17/2021 [facility] Follow Up Reason Comments Anticoagulation Reason Onset Date Comments Community Monitoring Outreach 12/01/2021 [facility] Follow Up Reason Comments F/U 3 Month Reason Onset Date Comments Community Monitoring Outreach 12/15/2021 [facility] Follow Up Reason Onset Date Comments Community Monitoring Outreach 12/16/2021 [facility] Follow Up Reason Comments Forms Reason Onset Date Comments Community Monitoring Outreach 01/02/2022 [facility] Follow Up Reason Comments Blood Pressure Check Reason Onset Date Comments Community Monitoring Outreach 01/17/2022 [facility] Follow Up Reason Onset Date Comments Community Monitoring Outreach 01/31/2022 [facility] Follow Up Reason Onset Date Comments Community Monitoring Outreach 02/14/2022 [facility] Follow Up Reason Comments Insect Bite 3-4 days ago noticed had brusing was painful in the beginning no itching Cough extra cough lately w ith lots of drainage Reason Onset Date Comments Refill Request 03/01/2022 Reason Onset Date Comments Refill Request 03/07/2022 Reason Comments Medication Problem warfarin Reason Onset Date Comments Community Monitoring Outreach 03/14/2022 [facility] Follow Up Reason Comments Medication Problem Reason Comments Follow Up Reason Onset Date Comments Community Monitoring Outreach 03/28/2022 CD M Telephonic Follow Up Reason Onset Date Comments Community Monitoring Outreach 04/11/2022 CD M Telephonic Reason Comments Laceration Wound on left arm x 2 weeks Reason Comments New Patient Reason Onset Date Comments Community Monitoring Outreach 05/10/2022 CD M Telephonic Reason Comments Reason Onset Date Comments Community Monitoring Outreach 05/25/2022 CD M Telephonic Reason Onset Date Comments Refill Request 05/29/2022 Reason Onset Date Comments Refill Request 05/30/2022 Reason Onset Date Comments Refill Request 06/07/2022 Reason Onset Date Comments community monitoring outreach 06/08/2022 CD M telephonic outreach Reason Onset Date Comments community monitoring outreach 06/12/2022 CD M telephonic outreach Reason Comments Imm/Inj Reason Comments Mammogram Order Reason Comments Results Reason Onset Date Comments community monitoring outreach 07/25/2022 CD M-Telephonic outreach Reason Comments Results Bone density scan Reason Comments Consult Nasal lesion Specialty Diagnoses / Procedures Referred By Nadeem wells Referred To Contact Ent - Otolaryngology Diagnoses Nasal lesion Procedures CONSULT TO ENT OFFICE/OUTPATIENT NEW HIGH MDM 60-74 MINUTES Kolby Kim MD [address] [place] [address] Referral ID Status Reason Start Date Expiration Date V isits Requested Visits Authorized [id number] Closed PCP Requested Referral 07/06/2022 07/06/2023 1 1 Reason Onset Date Comments Refill Request 08/15/2022 Reason Onset Date Comments Refill Request 08/28/2022 Reason Onset Date Comments community monitoring outreach 08/31/2022 CD M-Telephonic outreach Reason Comments Chest Pain Reason Comments Follow Up Chronic pansinusitis Reason Comments New Patient Evaluation Neck Pain Low Back Pain Pain (Shoulder Pain) Left shoulder Reason Onset Date Comments Refill Request 09/25/2022 Reason Onset Date Comments community monitoring outreach 10/02/2022 CD M-Telephonic outreach Reason Comments Pain Back and rib pain; S een pain management last week for x-rays and scans. Will be following up with them next week. The pain has been unbearable at times. Reason Comments Appointment Reason Comments Follow Up Reason Comments Orders [facility] Reason Comments Patient Update Reason Comments Patient Update requesting to increa medication Reason Comments Opened In Error Reason Onset Date Comments Transition Of Care 10/24/2022 Reason Comments Nurse Triage Call Shortness of Breath Reason Comments Transition Of Care Reason Comments Procedure Follow Up Reason Comments Patient Question Reason Comments Hospital F/U Reason Comments Follow Up Bilateral L4/5 and L 5/S1 Reason Comments Procedure Follow Up 11/14/22 Reason Onset Date Comments Refill Request 11/17/2022 Reason Comments 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 Levels Treated: Bilateral L4/5 and L5/S1 Facet Reason Comments Anticoagulation Results Reason Comments INR result Reason Comments Appointment 01/29/2023 reschedule Reason Comments Home Care Assistance Reason Onset Date Comments community monitoring outreach 12/07/2022 CD M-Telephonic outreach Reason Comments Shortness of Breath Reason Comments Medication Question Anticoagulation Reason Comments 6 month f/u Reason Onset Date Comments Refill Request 02/05/2023 Reason Onset Date Comments community monitoring outreach 02/08/2023 CD M-Telephonic outreach Reason Onset Date Comments community monitoring outreach 03/08/2023 CD M-Telephonic outreach Reason Onset Date Comments community monitoring outreach 03/12/2023 CD M-Telephonic outreach Reason Onset Date Comments community monitoring outreach 04/12/2023 CD M-Telephonic outreach Reason Onset Date Comments community monitoring outreach 05/15/2023 CD M-Telephonic outreach Reason Comments Radiology US Specialty Diagnoses / Procedures Referred By Contac t Referred To Contact US IMAGING Diagnoses Renal cyst Procedures US KIDNEY/BLADDER US RETROPERITONEAL REAL TIME W/IMAGE COMPLETE Kolby Kim MD [address] [facility] [place] [address] [place] [address] Referral ID Status Reason Start Date Expiration Date V isits Requested Visits Authorized [id number] Closed Auto-Generate d Referral 10/26/2022 11/25/2023 1 1 Reason Onset Date Comments community monitoring outreach 06/13/2023 CD M-Telephonic outreach Reason Onset Date Comments cdm 08/29/2023 enrollment Reason Onset Date Comments Community Monitoring Outreach 09/07/2023 Reason Onset Date Comments Community Monitoring Outreach 09/13/2023 Reason Onset Date Comments Community Monitoring Outreach 09/27/2023 Reason Onset Date Comments Refill Request 10/08/2023 Reason Onset Date Comments Community Monitoring Outreach 10/16/2023 Reason Onset Date Comments Refill Request 10/18/2023 Reason Onset Date Comments Community Monitoring Outreach 11/20/2023 Reason Onset Date Comments Refill Request 11/22/2023 Reason Comments 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 Reason Onset Date Comments Community Monitoring Outreach 12/04/2023 Reason Onset Date Comments Community Monitoring Outreach 12/19/2023 Reason Comments Medication Request Reason Onset Date Comments Refill Request 12/25/2023 Reason Onset Date Comments Refill Request 12/28/2023 Reason Onset Date Comments Community Monitoring Outreach 01/04/2024 Reason Comments medication not on current med list Reason Onset Date Comments Community Monitoring Outreach 01/18/2024 Reason Comments Orders protime Reason Onset Date Comments Community Monitoring Outreach 02/01/2024 Reason Onset Date Comments Refill Request 02/13/2024 Reason Comments Clinical Update Reason Onset Date Comments Community Monitoring Outreach 02/22/2024 Reason Onset Date Comments Community Monitoring Outreach 02/29/2024 Reason Onset Date Comments Community Monitoring Outreach 03/07/2024 Reason Onset Date Comments Community Monitoring Outreach 03/10/2024 Reason Onset Date Comments Community Monitoring Outreach 03/17/2024 Reason Comments Difficulty Breathing Reason Onset Date Comments Community Monitoring Outreach 03/25/2024 Reason Onset Date Comments Community Monitoring Outreach 04/02/2024 Reason Onset Date Comments Refill Request 04/03/2024 Reason Comments ER F/U [facility] ER 9/9/24 dx: ba ck pain from after falling Reason Onset Date Comments Community Monitoring Outreach 11/02/2023 Reason Onset Date Comments Refill Request 05/30/2024 Reason Comments Depression Reason Comments 6 Month Exam Reason Comments Medication Authorization Rivastigmine pa tch Reason Comments Patient Update INR Order Reason Onset Date Comments Refill Request 01/16/2025 Reason Comments Orders poc protime Reason Onset Date Comments Refill Request 03/15/2025 Reason Onset Date Comments Stockroom Attendant- Other 03/24/2025 Chart review Care Teams (unrecognized sec tion and content) Team Status: Active Member Role Status Dates Dr. Kolby Kim MD Primary Care Provider Active Team Status: Inactive Member Role Status Dates Dr. Kolby Kim MD Primary Care Provider, Referring Provider Active Kleber Real FLUE GAS ANALYST, FLUE GAS ANALYST-C Attending Provider Active Team Status: Inactive Member Role Status Dates Dr. Kolby Kim MD Primary Care Provider, Referring Provider Active Dr. Jeremy Johnson , Attending Provider Active Team Status: Active Member Role Status Dates Dr. Kolby Kim MD Primary Care Provider Active Dr. Forrest Smiley DO Emergency Provider Active Dr. Faviola Perry MD Admit Provider, Other Provider Active Dr. Anju Sanz MD Attending Provider, Other Prov ider Active Team Status: Active Member Role Status Dates Dr. Kolby Kim MD Primary Care Provider Active Dr. Forrest Smiley DO Emergency Provider Active Dr. Faviola Perry MD Admit Provider, Other Provider Active Dr. Katherine Villarreal MD Attending Provider, Other Provid er Active Dr. Anju Sanz MD Other Provider Active Team Status: Inactive Member Role Status Dates Dr. Kolby Kim MD Primary Care Provider, Referring Provider Active Joy Adame NP, FLUE GAS ANALYST-C Attending Provider Active Team Status: Active Member Role Status Dates Dr. Kolby Kim MD Primary Care Provider Active Dr. Forrest Smiley DO Emergency Provider Active Dr. Faviola Perry MD Admit Provider, Other Provider Active Dr. Katherine Villarreal MD Attending Provider, Other Provid er Active Dr. Anju Sanz MD Other Provider Active Dr. Trent Vizcaino MD Other Provider Active Team Status: Active Member Role Status Dates Dr. Kolby Kim MD Primary Care Provider Active Dr. Velma Leavitt , Emergency Provider Active Dr. Ivis Olvera , DO Attending Provider Active Team Status: Active Member Role Status Dates Dr. Kolby Kim MD Primary Care Provider Active Dr. Velma Leavitt DO Emergency Provider Active Dr. Ivis Olvera , DO Admit Provider, Other Provider Ac tive Dr. Evgeny Galicia MD Other Provider Active Dr. Chu Liz MD Attending Provider Active Team Status: Active Member Role Status Dates Dr. Kolby Kim MD Primary Care Provider Active Dr. Velma Leavitt , Emergency Provider Active Dr. Ivis Olvera , DO Admit Provider, Other Provider Ac tive Dr. Evgeny Galicia MD Attending Provider, Other Provid er Active Dr. Chu Liz MD Other Provider Active Team Status: Active Member Role Status Dates Dr. Kolby Kim MD Primary Care Provider Active Dr. Velma Leavitt DO Emergency Provider Active Dr. Ivis Olvera , DO Admit Provider, Other Provider Ac tive Dr. Evgeny Galicia MD Attending Provider, Other Provid er Active Dr. Harry Pate MD Other Provider Active Dr. Chu Liz MD Other Provider Active Team Status: Active Member Role Status Dates Dr. Kolby Kim MD Primary Care Provider Active Dr. Velma Leavitt DO Emergency Provider Active Dr. Ivis Olvera , DO Admit Provider, Other Provider Ac tive Dr. Evgeny Galicia MD Other Provider Active Dr. Harry Pate MD Attending Provider, Other Provi jessica Active Dr. Chu Liz MD Other Provider Active Team Status: Active Member Role Status Dates Dr. Kolby Kim MD Primary Care Provider Active Dr. Jeremy Johnson , Attending Provider, Referring Provider, Other Provider Active Team Status: Inactive Member Role Status Dates Dr. Kolby Kim MD Primary Care Provider Active Dr. Ben Rock MD Attending Provider, Emergency Provi jessica Active Team Status: Inactive Member Role Status Dates Dr. Kolby Kim MD Primary Care Provider Active Dr. Forrest Smiley , Emergency Provider Active Dr. Faviola Perry MD Admit Provider, Other Provider Active Dr. Katherine Villarreal MD Attending Provider Active Dr. Anju Sanz MD Other Provider Active Dr. Trent Vizcaino MD Other Provider Active Team Status: Inactive Member Role Status Dates Dr. Kolby Kim MD Primary Care Provider Active Dr. Velma Godman , DO Emergency Provider Active Dr. Ivis Olvera DO Admit Provider, Other Provider Ac tive Dr. Evgeny Galicia MD Other Provider Active Dr. Harry Pate MD Attending Provider Active Dr. Chu Liz MD Other Provider Active Team Status: Inactive Member Role Status Dates Dr. Kolby Kim MD Primary Care Provider Active Dr. Chaz Grant MD Attending Provider, Emergency Pro vider Active Team Status: Inactive Member Role Status Dates Dr. Kolby Kim MD Primary Care Provider Active Dr. Jeremy Johnson DO Attending Provider, Referring Pro vider Active Team Status: Inactive Member Role Status Dates Dr. Kolby Kim MD Primary Care Provider Active Dr. Forrest Smiley , Emergency Provider Active Team Status: Active Member Role Status Dates Dr. Kolby Kim MD Primary Care Provider Active Dr. Velma Leavitt DO Emergency Provider Active Dr. Ivis Olvera DO Admit Provider, Att ending Provider, Other Provider Active Dr. Evgeny Galicia MD Other Provider Active Team Status: Inactive Member Role Status Dates Dr. Kolby Kim MD Primary Care Provider Active Dr. Randall Mack MD Attending Provider, Emergency Provider Active Team Status: Inactive Member Role Status Dates Dr. Kolby Kim MD Primary Care Provider Active Dr. Ricardo Reyes MD Attending Provider, Emergency Provider Active Food And Beverage Attendant Relationship Specialty Start Date End Date Kolby Kim MD [address] [place] [address] PCP - General Family Practice 09/20/12 Ivis Carrington RN Stockroom Attendant 03/21/21 Food And Beverage Attendant Relationship Specialty Start Date End Date Kolby Kim MD [address] [place] [address] PCP - General Family Practice 09/20/12 Ivis Carrington web publisherStockroom Attendant 03/21/21 Food And Beverage Attendant Relationship Specialty Start Date End Date Kolby Kim MD [address] [place] [address] PCP - General Family Practice 09/20/12 Ivis Carrington web publisherStockroom Attendant 03/21/21 Food And Beverage Attendant Relationship Specialty Start Date End Date Kolby Kim MD [address] [facility] [place] [address] PCP - General Family Practice 09/20/12 Ivis Carrington, RN [address] [place] [address] Stockroom Attendant 03/21/[address]ay [address] [place] [address] Regulatory Coordinator Cardiology 12/01/21 Food And Beverage Attendant Relationship Specialty Start Date End Date Kolby Kim MD [address] [place] [address] PCP - General Family Practice 09/20/12 Ivis Carrington RN [address] [place] [address] Stockroom Attendant 03/21/[address]ory [address]ay [address] [place] [address] Regulatory Coordinator Cardiology 12/01/21 Food And Beverage Attendant Relationship Specialty Start Date End Date Kolby Kim MD [address] [place] [address] PCP - General Family Practice 09/20/12 Ivis Carrington, CARLOS [address] [place] [address] Stockroom Attendant 03/21/21 Rory Mckay [address] [place] [address] Regulatory Coordinator Cardiology 12/01/21 Food And Beverage Attendant Relationship Specialty Start Date End Date Kolby Kim MD [address] [place] [address] PCP - General Family Practice 09/20/12 Ivis Carrington, RN [address] [place] [address] Stockroom Attendant 03/21/21 Rory Mckay [address] [place] [address] Regulatory Coordinator Cardiology 12/01/21 Food And Beverage Attendant Relationship Specialty Start Date End Date Kolby Kim MD [address] [place] [address] PCP - General Family Practice 09/20/12 Ivis Carrington, RN [address] [place] [address] Stockroom Attendant 03/21/21 Rory Mckay [address] [place] [address] Regulatory Coordinator Cardiology 12/01/21 Food And Beverage Attendant Relationship Specialty Start Date End Date Kolby Kim MD [address] [place] [address] PCP - General Family Practice 09/20/12 Ivis Carrington, CARLOS [address] [place] [address] Stockroom Attendant 03/21/21 Rory Mckay [address] [place] [address] Regulatory Coordinator Cardiology 12/01/21 Food And Beverage Attendant Relationship Specialty Start Date End Date Kolby Kim MD [address] [place] [address] PCP - General Family Practice 09/20/12 Ivis Carrington, RN [address] [place] [address] Stockroom Attendant 03/21/21 Rory Mckay [address] [place] [address] Regulatory Coordinator Cardiology 12/01/21 Food And Beverage Attendant Relationship Specialty Start Date End Date Kolby Kim MD [address] [place] [address] PCP - General Family Practice 09/20/12 Ivis Carrington, RN [address] [place] [address] Stockroom Attendant 03/21/21 Rory Mckay [address] [place] [address] Regulatory Coordinator Cardiology 12/01/21 Food And Beverage Attendant Relationship Specialty Start Date End Date Kolby Kim MD [address] [place] [address] PCP - General Family Practice 09/20/12 Ivis Carrington, CARLOS [address] [place] [address] Stockroom Attendant 03/21/21 Rory Mckay [address] [place] [address] Regulatory Coordinator Cardiology 12/01/21 Food And Beverage Attendant Relationship Specialty Start Date End Date Kolby Kim MD [address] [place] [address] PCP - General Family Practice 09/20/12 Ivis Carrington, RN [address] [place] [address] Stockroom Attendant 03/21/21 Rory Mckay [address] [place] [address] Regulatory Coordinator Cardiology 12/01/21 Food And Beverage Attendant Relationship Specialty Start Date End Date Kolby Kim MD [address] [facility] [place] [address] PCP - General Family Practice 09/20/12 Ivis Carrington, RN [address] [place] [address] Stockroom Attendant 03/21/21 Rory Mckay [address] [place] [address] Regulatory Coordinator Cardiology 12/01/21 Food And Beverage Attendant Relationship Specialty Start Date End Date Kolby Kim MD [address] [place] [address] PCP - General Family Practice 09/20/12 Ivis Carrington RN [address] [place] [address] Stockroom Attendant 03/21/21 Rory Mckay [address] [place] [address] Regulatory Coordinator Cardiology 12/01/21 Food And Beverage Attendant Relationship Specialty Start Date End Date Kolby Kim MD [address] [place] [address] PCP - General Family Practice 09/20/12 Ivis Carrington, CARLOS [address] [place] [address] Stockroom Attendant 03/21/21 Rory Mckay [address] [place] [address] Regulatory Coordinator Cardiology 12/01/21 Food And Beverage Attendant Relationship Specialty Start Date End Date Kolby Kim MD [address] [place] [address] PCP - General Family Medicine 09/20/12 Ivis Carrington, RN [address] [place] [address] Stockroom Attendant 03/21/21 Rory Mckay [address] [place] [address] Regulatory Coordinator Cardiology 12/01/21 Food And Beverage Attendant Relationship Specialty Start Date End Date Kolby Kim MD [address] [place] [address] PCP - General Family Medicine 09/20/12 Ivis Carrington, RN [address] [place] [address] Stockroom Attendant 03/21/21 Rory Mckay [address] [place] [address] Regulatory Coordinator Cardiology 12/01/21 Food And Beverage Attendant Relationship Specialty Start Date End Date Kolby Kim MD [address] [place] [address] PCP - General Family Medicine 09/20/12 Ivis Carrington, RN [address] [place] [address] Stockroom Attendant 03/21/21 Rory Mckay [address] [place] [address] Regulatory Coordinator Cardiology 12/01/21 Food And Beverage Attendant Relationship Specialty Start Date End Date Kolby Kim MD [address] [place] [address] PCP - General Family Medicine 09/20/12 Ivis Carrington, RN [address] [place] [address] Stockroom Attendant 03/21/21 Rory Mckay [address] [place] [address] Regulatory Coordinator Cardiology 12/01/21 Food And Beverage Attendant Relationship Specialty Start Date End Date Kolby iKm MD [address] [place] [address] PCP - General Family Medicine 09/20/12 Ivis Carrington, RN [address] [place] [address] Stockroom Attendant 03/21/21 Rory Mckay [address] [place] [address] Regulatory Coordinator Cardiology 12/01/21 Food And Beverage Attendant Relationship Specialty Start Date End Date Kolby Kim MD [address] [place] [address] PCP - General Family Medicine 09/20/12 Ivis Carrington, RN [address] [place] [address] Stockroom Attendant 03/21/21 Rory Mckay [address] [place] [address] Regulatory Coordinator Cardiology 12/01/21 Food And Beverage Attendant Relationship Specialty Start Date End Date Kolby Kim MD [address] [place] [address] PCP - General Family Medicine 09/20/12 Ivis Carrington, RN [address] [place] [address] Stockroom Attendant 03/21/21 Rory Mckay [address] [place] [address] Regulatory Coordinator Cardiology 12/01/21 Food And Beverage Attendant Relationship Specialty Start Date End Date Kolby Kim MD [address] [place] [address] PCP - General Family Medicine 09/20/12 Ivis Carrington, CARLOS [address] [place], [place] 6424931 Stockroom Attendant 03/21/21 Rory Mckay [address] [place] [address] Regulatory Coordinator Cardiology 12/01/21 Food And Beverage Attendant Relationship Specialty Start Date End Date Kolby Kim MD [address] [place] [address] PCP - General Family Medicine 09/20/12 Ivis Carrington RN [address] [place], [place] [id number] Stockroom Attendant 03/21/21 Rory Mckay [address] [place] [address] Regulatory Coordinator Cardiology 12/01/21 Food And Beverage Attendant Relationship Specialty Start Date End Date Kolby Kim MD [address] [place] [address] PCP - General Family Medicine 09/20/12 Rory Mckay [address] [place] [address] Regulatory Coordinator Cardiology 12/01/21 Sunny Estrella RN [address] [place] [address] Stockroom Attendant Family Medicine 03/21/21 Food And Beverage Attendant Relationship Specialty Start Date End Date Kolby Kim MD [address] [place] [address] PCP - General Family Medicine 09/20/12 Rory Mckay [address] [place] [address] Regulatory Coordinator Cardiology 12/01/21 Sunny Estrella RN [address] [place], [place] 6409331 Stockroom Attendant Family Medicine 03/21/21 Shawn Santana MD 1 [facility] [address] [place], [place] [id number] Neurology 06/02/22 Food And Beverage Attendant Relationship Specialty Start Date End Date Kolby Kim MD [address] [place] [address] PCP - General Family Medicine 09/20/12 Rory Mckay [address] [place] [address] Regulatory Coordinator Cardiology 12/01/21 Sunny Estrella RN [address] [place], [place] 7139431 Stockroom Attendant Family Medicine 03/21/21 Shawn Santana MD 1 [facility] [address] [place], [place] 4388[address] Neurology 06/02/22 Food And Beverage Attendant Relationship Specialty Start Date End Date Kolby Kim MD [address] [place] [address] PCP - General Family Medicine 09/20/12 Rory Mckay [address] [place] [address] Regulatory Coordinator Cardiology 12/01/21 Sunny Estrella RN [address] [place], [place] 2046531 Stockroom Attendant Family Medicine 03/21/21 Shawn Santana MD 1 [facility] [address] [place], [place] [id number] Neurology 06/02/22 Food And Beverage Attendant Relationship Specialty Start Date End Date Kolby Kim MD [address] [place], [place] 984631 PCP - General Family Medicine 09/20/12 Rory Mckay [address] [place] [address] Regulatory Coordinator Cardiology 12/01/21 Sunny Estrella, CARLOS [address] [place], [place] 8566231 Stockroom Attendant Family Medicine 05/31/22 Shawn Santana MD 1 [facility] [address] [place], [place] [id number] Neurology 06/02/22 Food And Beverage Attendant Relationship Specialty Start Date End Date Kolby Kim MD [address] [place] [address] PCP - General Family Medicine 09/20/12 Rory Mckay [address] [place] [address] Regulatory Coordinator Cardiology 12/01/21 Sunny Estrella RN [address] [place] [address] Stockroom Attendant Family Medicine 05/31/22 Shawn Santana MD 1 [facility] [address] [place], [place] [address] Neurology 06/02/22 Food And Beverage Attendant Relationship Specialty Start Date End Date Kolby Kim MD [address] [place], [place] 110471 PCP - General Family Medicine 09/20/12 Rory Mckay [address] [place] [address] Regulatory Coordinator Cardiology 12/01/21 Sunny Estrella RN [address] [place], [place] 6926931 Stockroom Attendant Family Medicine 05/31/22 Shawn Santana MD 1 [facility] [address] [place], [place] [id number] Neurology 06/02/22 Food And Beverage Attendant Relationship Specialty Start Date End Date Kolby Kim MD [address] [place], [place] 635431 PCP - General Family Medicine 09/20/12 Rory Mckay [address] [place] [address] Regulatory Coordinator Cardiology 12/01/21 Sunny Estrella RN [address] [place], [place] 5971331 Stockroom Attendant Family [facility] 05/31/22 Shawn Santana MD 1 [facility] [address] [place], [place] [id number] Neurology 06/02/22 Food And Beverage Attendant Relationship Specialty Start Date End Date Kolby Kim MD [address] [place] [address] PCP - General Family Medicine 09/20/12 Rory Mckay [address] [place] [address] Regulatory Coordinator Cardiology 12/01/21 Sunny Estrella RN [address] [place] [address] Stockroom Attendant Family [facility] 05/31/22 Shawn Santana MD 1 [facility] [address] [place], [place] [id number] Neurology 06/02/22 Food And Beverage Attendant Relationship Specialty Start Date End Date Kolby Kim MD [address] [place], [place] 48[address] PCP - General Family Medicine 09/20/12 Ivis Carrington, RN [address] [place], [place] 2200331 Stockroom Attendant 03/21/2105/31/22 Rory Mckay [address] [place] [address] Regulatory Coordinator Cardiology 12/01/21 Sunny Estrella, CARLOS [address] [place], [place] 5101931 Stockroom Attendant Family Medicine 05/31/22 Shawn Santana MD [address] [place] [address] [place], [place] [id number] Neurology 06/02/22 Food And Beverage Attendant Relationship Specialty Start Date End Date Kolby Kim MD [address] [place], [place] 61179691 PCP - General Family Medicine 09/20/12 Rory Mckay [address] [place] [address] Regulatory Coordinator Cardiology 12/01/21 Sunny Estrella RN [address] [place] [address] Stockroom Attendant Family Medicine 05/31/22 Shawn Santana MD [address] [place] [address] [place], [place] [id number] Neurology 06/02/22 Team Status: Inactive Member Role Status Dates Dr. Kolby Kim MD Primary Care Provider, Referring Provider Active Dr. Rory Mckay MD Attending Provider Active Team Status: Active Member Role Status Dates Dr. Kolby Kim MD Primary Care Provider Active Dr. Rory Mckay MD Attending Provider Active Team Status: Inactive Member Role Status Dates Dr. Kolby Kim MD Primary Care Provider Active Dr. Rory Mckay MD Attending Provider, Referring Provider Active Team Status: Inactive Member Role Status Dates Dr. Kolby Kim MD Primary Care Provider Active Dr. Tyler Bergman DO Attending Provider, Emergency Souleymane carty Active Team Status: Inactive Member Role Status Dates Dr. Kolby Kim MD Primary Care Provider Active Dr. Ben Rock MD Emergency Provider Active Food And Beverage Attendant Relationship Specialty Start Date End Date Kolby Kim MD [address] [facility] [place] [address] PCP - General Family Medicine 09/20/12 Rory Mckay [address] [place] [address], [place] [address] Regulatory Coordinator Cardiology 12/01/21 Sunny Estrella RN [address] [place] [address] Stockroom Attendant Family Medicine 05/31/22 Shawn Santana MD 1 [facility] [address] [place], [place] [id number] Neurology 06/02/22 Food And Beverage Attendant Relationship Specialty Start Date End Date Kolby Kim MD [address] [place] [address] PCP - General Family Medicine 09/20/12 Rory Mckay [address] [place] [address] Regulatory Coordinator Cardiology 12/01/21 Sunny Estrella RN [address] [place] [address] Stockroom Attendant Family Medicine 05/31/22 Shawn Santana MD 1 [facility] [address] [place], [place] [id number] Neurology 06/02/22 Food And Beverage Attendant Relationship Specialty Start Date End Date Kolby Kim MD [address] [place] [address] PCP - General Family Medicine 09/20/12 Rory Mckay [address] [facility] [address] Regulatory Coordinator Cardiology 12/01/21 Sunny Estrella RN [address] [place] [address] Stockroom Attendant Family Medicine 05/31/22 Shawn Santana MD 1 [facility] [address] [place], [place] [id number] Neurology 06/02/22 Food And Beverage Attendant Relationship Specialty Start Date End Date Kolby Kim MD [address] [place] [address] PCP - General Family Medicine 09/20/12 Rory Mckay [address] [place] [address] Regulatory Coordinator Cardiology 12/01/21 Sunny Estrella RN [address] [place] [address] Stockroom Attendant Family Medicine 05/31/22 Shawn Santana MD 1 [facility] [address] [place], [place] [id number] Neurology 06/02/22 Food And Beverage Attendant Relationship Specialty Start Date End Date Kolby Kim MD [address] [place] [address] PCP - General Family Medicine 09/20/12 Rory Mckay [address] [place] [address] Regulatory Coordinator Cardiology 12/01/21 Sunny Estrella RN [address] [place], [place] 6658631 Stockroom Attendant Family Medicine 05/31/22 Shawn Santana MD 1 [facility] [address] [place], [place] [id number] Neurology 06/02/22 Food And Beverage Attendant Relationship Specialty Start Date End Date Kolby Kim MD [address] [place], [place] 809881 PCP - General Family Medicine 09/20/12 Rory Mckay [address] [place] [address] Regulatory Coordinator Cardiology 12/01/21 Sunny Estrella, RN [address] [place] [address] Stockroom Attendant Family Medicine 05/31/22 hSawn Santana MD 1 [facility] [address] [place] [id number] Neurology 06/02/22 Food And Beverage Attendant Relationship Specialty Start Date End Date Kolby Kim MD [address] [place] [address] PCP - General Family Medicine 09/20/12 Rory Mckay [address] [place] [address] Regulatory Coordinator Cardiology 12/01/21 Sunny Estrella RN [address] [place] [address] Stockroom Attendant Family Medicine 05/31/22 Shawn Santana MD 1 [facility] [address] [place], [place] 947[address] Neurology 06/02/22 Food And Beverage Attendant Relationship Specialty Start Date End Date Kolby Kim MD [address] [place], [place] 644151 PCP - General Family Medicine 09/20/12 Rory Mckay [address] [place] [address] Regulatory Coordinator Cardiology 12/01/21 Sunny Estrella RN [address] [place] [address] Stockroom Attendant Family Medicine 05/31/22 Shawn Santana MD 1 [facility] [address] [place], [place] [id number] Neurology 06/02/22 Food And Beverage Attendant Relationship Specialty Start Date End Date Kolby Kim MD [address] [place], [place] 994771 PCP - General Family Medicine 09/20/12 Rory Mckay [address] [facility] [place] [address] Regulatory Coordinator Cardiology 12/01/21 Sunny Estrella RN [address] [place] [address] Stockroom Attendant Family [facility] 05/31/22 Shawn Santana MD 1 [facility] [address] [place], [place] [id number] Neurology 06/02/22 Team Status: Active Member Role Status Dates Dr. Kolby iKm MD Primary Care Provider Active Dr. Forrest Smiley DO Emergency Provider Active Dr. Faviola [place] MD Admit Provider, Attending Prov ider Active Food And Beverage Attendant Relationship Specialty Start Date End Date Kolby Kim MD [address] [place], [place] [id number] PCP - General Family Medicine 09/20/12 Rory Mckay [address] [place] [address] Regulatory Coordinator Cardiology 12/01/21 Sunny Estrella RN [address] [place] [address] Stockroom Attendant [facility] 05/31/22 Shawn Santana MD 1 [facility] [address] [place], [place] [id number] Neurology 06/02/22 Food And Beverage Attendant Relationship Specialty Start Date End Date Kolby Kim MD [address] [place], [place] 126101 PCP - General Family Medicine 09/20/12 Rory Mckay [address] [facility] [place] [address] Regulatory Coordinator Cardiology 12/01/21 Sunny Estrella, CARLOS [address] [place], [place] 3643431 Stockroom Attendant Family Medicine 05/31/22 Shawn Santana MD 1 [facility] [address] [place], [place] [id number] Neurology 06/02/22 Food And Beverage Attendant Relationship Specialty Start Date End Date Kolby Kim MD [address] [place], [place] 983131 PCP - General [facility] 09/20/12 Rory Mckay [address] [place] [address] Regulatory Coordinator Cardiology 12/01/21 Sunny Estrella RN [address] [place] [address] Stockroom Attendant Family [facility] 05/31/22 Shawn Santana MD 1 [facility] [address] [place], [place] [id number] Neurology 06/02/22 Team Status: Active Member Role Status Dates Dr. Kolby Kim MD Primary Care Provider Active Dr. Velma Leavitt , Emergency Provider Active Dr. Ivis Olvera , Admit Provider, Attending Provide r Active Dr. Evgeny Galicia MD Other Provider Active Food And Beverage Attendant Relationship Specialty Start Date End Date Kolby Kim MD [address] [place], [place] 008561 PCP - General Family Medicine 09/20/12 Rory Mckay [address] [facility] [place] [address] Regulatory Coordinator Cardiology 12/01/21 Sunny Estrella RN [address] [place] [address] Stockroom Attendant Family Medicine 05/31/22 Shawn Santana MD 1 [facility] [address] [place], [place] [id number] Neurology 06/02/22 Food And Beverage Attendant Relationship Specialty Start Date End Date Kolby Kim MD [address] [place] [address] PCP - General Family Medicine 09/20/12 Rory Mckay [address] [place] [address] Regulatory Coordinator Cardiology 12/01/21 Sunny Estrella RN [address] [place], [place] 2170431 Stockroom Attendant Family Medicine 05/31/22 Shawn Santana MD 1 [facility] [address] [place], [place] [id number] Neurology 06/02/22 Team Status: Inactive Member Role Status Dates Dr. Kolby Kim MD Primary Care Provider Active Dr. Chaz Grant MD Emergency Provider Active Food And Beverage Attendant Relationship Specialty Start Date End Date Kolby Kim MD [address] [place] [address] PCP - General Family Medicine 09/20/12 Rory Mckay [address] [place] [address] Regulatory Coordinator Cardiology 12/01/21 Sunny Estrella RN [address] [place] [address] Stockroom Attendant Family Medicine 05/31/22 Shawn Santana MD 1 [facility] [address] [place], [place] 987431 Neurology 06/02/22 Food And Beverage Attendant Relationship Specialty Start Date End Date Kolby Kim MD [address] [place] [address] PCP - General Family Medicine 09/20/[address] [place] [address] Regulatory Coordinator Cardiology 12/01/21 Sunny Estrella RN [address] [place], [place] 2042131 Stockroom Attendant Family Medicine 05/31/22 Shawn Santana MD 1 [facility] [address] [place], [place] [id number] Neurology 06/02/22 Food And Beverage Attendant Relationship Specialty Start Date End Date Kolby Kim MD [address] [place] [address] PCP - General Family Medicine 09/20/12 [place] [address] Regulatory Coordinator Cardiology 12/01/21 Sunny Estrella RN [address] [place] [address] Stockroom Attendant Family Medicine 05/31/22 Shawn Santana MD 1 [facility] [address] [place], [place] 206741 Neurology 06/02/22 Food And Beverage Attendant Relationship Specialty Start Date End Date Kolby Kim MD [address] [place] [address] PCP - General Family Medicine 09/20/[address] [place] [address] Regulatory Coordinator Cardiology 12/01/21 Sunny Estrella RN [address] [place], [place] 9124131 Stockroom Attendant Family [facility] 05/31/22 Shawn Santana MD 1 [facility] [address] [place], [place] [id number] Neurology 06/02/22 Food And Beverage Attendant Relationship Specialty Start Date End Date Kolby Kim MD [address] [place] [address] PCP - General Family Medicine 09/20/12 Rory Mckay [address] [place] [address] Regulatory Coordinator Cardiology 12/01/21 Sunny Estrella RN [address] [place] [address] Stockroom Attendant [facility] 05/31/22 Shawn Santana MD 1 [facility] [address] [place], [place] [id number] Neurology 06/02/22 Food And Beverage Attendant Relationship Specialty Start Date End Date Kolby Kim MD [address] [place], [place] [id number] PCP - General Family Medicine 09/20/12 Rory Mckay [address] [place] [address] Regulatory Coordinator Cardiology 12/01/21 Sunny Estrella RN [address] [place] [address] Stockroom Attendant Family [facility] 05/31/22 Shawn Santana MD 1 [facility] [address] [place], [place] [id number] Neurology 06/02/22 Food And Beverage Attendant Relationship Specialty Start Date End Date Kolby Kim MD [address] [place], [place] 998991 PCP - General Family Medicine 09/20/12 Rory Mckay [address] [place] [address] Regulatory Coordinator Cardiology 12/01/21 Sunny Estrella RN [address] [place] [address] Stockroom Attendant Family Medicine 05/31/22 Shawn Santana MD 1 [facility] [address] [place], [place] [id number] Neurology 06/02/22 Food And Beverage Attendant Relationship Specialty Start Date End Date Kolby Kim MD [address] [place] [address] PCP - General Family Medicine 09/20/12 Rory Mckay [address] [place] [address] Regulatory Coordinator Cardiology 12/01/21 Sunny Estrella RN [address] [place] [address] Stockroom Attendant Family Medicine 05/31/22 Shawn Santana MD 1 [facility] [address] [place] [id number] Neurology 06/02/22 Food And Beverage Attendant Relationship Specialty Start Date End Date Kolby Kim MD [address] [place], [place] 841331 PCP - General Family Medicine 09/20/12 Rory Mckay [address] [address] Regulatory Coordinator Cardiology 12/01/21 Sunny Estrella RN [address] [place] [address] Stockroom Attendant Family Medicine 05/31/22 Shawn Santana MD 1 [facility] [address] [place], [place] 355021 Neurology 06/02/22 Food And Beverage Attendant Relationship Specialty Start Date End Date Kolby Kim MD [address] [place] [address] PCP - General Family Medicine 09/20/12 Rory Mckay [address] [place] [address] Regulatory Coordinator Cardiology 12/01/21 Sunny Estrella RN [address] [place], [place] 8179231 Stockroom Attendant Family Medicine 05/31/22 Shawn Santana MD 1 [facility] [address] [place], [place] 325[address] Neurology 06/02/22 Team Status: Inactive Member Role Status Dates Dr. Kolby Kim MD Primary Care Provider Active Dr. Forrest Smiley DO Attending Provider, Emergency Provider Active Team Status: Inactive Member Role Status Dates Dr. Kolby Kim MD Primary Care Provider Active Dr. Vishal Grant DO Attending Provider, Emergency P machelle Active Food And Beverage Attendant Relationship Specialty Start Date End Date Kolby Kim MD [address] [place], [place] [id number] PCP - General Family Medicine 09/20/12 Rory [address]ckay [address] [place] [address] Regulatory Coordinator Cardiology 12/01/21 Sunny Estrella RN [address] [place] [id number] Stockroom Attendant Family Medicine 05/31/22 Shawn Santana MD 1 [facility] [address] [place], [place] [id number] Neurology 06/02/22 Food And Beverage Attendant Relationship Specialty Start Date End Date Kolby Kim MD [address] [place], [place] 085921 PCP - General Family Medicine 09/20/12 [address]ory Mckay [address] [facility] [place] [address] Regulatory Coordinator Cardiology 12/01/21 Sunny Estrella RN [address] [place], [place] 6356731 Stockroom Attendant Family Medicine 05/31/22 Shawn Santana MD 1 [facility] [place] [address] Neurology 06/02/22 Team Status: Inactive Member Role Status Dates Dr. Kolby Kim MD Primary Care Provider Active Jose Yap MD Emergency Provider Active Food And Beverage Attendant Relationship Specialty Start Date End Date Kolby Kim MD [address] [place], [place] [id number] PCP - General Family Medicine 09/20/[address] [facility] [facility] [place] [address] Regulatory Coordinator Cardiology 12/01/21 Sunny Estrella RN [address] [place], [place] 5378831 Stockroom Attendant Family Medicine 05/31/22 Shawn Santana MD 1 [facility] [place] [address] Neurology 06/02/22 Food And Beverage Attendant Relationship Specialty Start Date End Date Kolby Kim MD [address] [place], [place] 031651 PCP - General Family Medicine 09/20/12 Rory Mckay [address] [place] [phone] Regulatory Coordinator Cardiology 12/01/21 Sunny Estrella RN [address] [place] [address] Stockroom Attendant Family Medicine 05/31/22 Shawn Santana MD 1 [facility] [address] [place], [place] 121131 Neurology 06/02/22 Food And Beverage Attendant Relationship Specialty Start Date End Date Kolby Kim MD [address] [place], [place] 079701 PCP - General Family Medicine 09/20/12 Rory Mckay [address] [place] [address] Regulatory Coordinator Cardiology 12/01/21 Sunny Estrella RN [address] [place] [address] Stockroom Attendant Family Medicine 05/31/22 Shawn Santana MD 1 [facility] [address] [place], [place] 105761 Neurology 06/02/22 Food And Beverage Attendant Relationship Specialty Start Date End Date Kolby Kim MD [address] [place], [place] 326091 PCP - General Family Medicine 09/20/12 Rory Mckay [address] [place] [phone] Regulatory Coordinator Cardiology 12/01/21 Sunny Estrella RN [address] [place] [address] Stockroom Attendant Family Medicine 05/31/22 Shawn Santana MD 1 [facility] [address] [place], [place] [id number] Neurology 06/02/22 Food And Beverage Attendant Relationship Specialty Start Date End Date Kolby Kim MD [address] [place], [place] [id number] PCP - General Family Medicine 09/20/12 Rory Mckay [address] [place] [phone] Regulatory Coordinator Cardiology 12/01/21 Sunny Estrella RN [address] [place] [id number] Stockroom Attendant Family Medicine 05/31/22 Shawn Santana MD 1 [facility] [address] [place], [place] [id number] Neurology 06/02/22 Food And Beverage Attendant Relationship Specialty Start Date End Date Kolby Kim MD [address] [place], [place] [id number] PCP - General Family Medicine 09/20/12 Rory Mckay [address] [facility] [address] Regulatory Coordinator Cardiology 12/01/21 Sunny Estrella RN [address] [place] [address] Stockroom Attendant Family Medicine 05/31/22 Shawn Santana MD 1 [facility] [address] [place], [place] 416901 Neurology 06/02/22 Food And Beverage Attendant Relationship Specialty Start Date End Date Kolby Kim MD [address] [place], [place] 404901 PCP - General Family Medicine 09/20/12 Rory Mckay [address] [place] [phone] Regulatory Coordinator Cardiology 12/01/21 Sunny Estrella RN [address] [place] [address] Stockroom Attendant Family Medicine 05/31/22 Shawn Santana MD 1 [facility] [address] Neurology 06/02/22 Food And Beverage Attendant Relationship Specialty Start Date End Date Kolby Kim MD [address] [place], [place] 724201 PCP - General Family Medicine 09/20/12 Rory Mckay MD [address] [place] [phone] Regulatory Coordinator Cardiology 12/01/21 Sunny Estrella RN [address] [place], [place] [id number] Stockroom Attendant Family Medicine 05/31/22 Shawn Santana MD 1 [facility] [address] Neurology 06/02/22 Food And Beverage Attendant Relationship Specialty Start Date End Date Kolby Kim MD [address] [place], [place] 506681 PCP - General Family Medicine 09/20/12 Rory Mckay MD [address] [place] [phone] Regulatory Coordinator Cardiology 12/01/21 Sunny Estrella RN [address] [place] [address] Stockroom Attendant Family Medicine 05/31/22 Shawn Santana MD 1 [facility] [address] [place], [place] 001861 Neurology 06/02/22 Food And Beverage Attendant Relationship Specialty Start Date End Date Kolby Kim MD [address] [place] [address] PCP - General Family Medicine 09/20/12 Rory Mckay MD [address] [place] [address] Regulatory Coordinator Cardiology 12/01/21 Sunny Estrella RN [address] [place] [address] Stockroom Attendant Family Medicine 05/31/22 Shawn Santana MD 1 [facility] [address] [place], [place] 146001 Neurology 06/02/22 Food And Beverage Attendant Relationship Specialty Start Date End Date Kolby Kim MD [address] [place], [place] 280401 PCP - General Family Medicine 09/20/12 Rory Mckay MD [address] [place] [phone] Regulatory Coordinator Cardiology 12/01/21 Sunny Estrella RN [address] [place] [id number] Stockroom Attendant Family Medicine 05/31/22 Shawn Santana MD 1 [facility] [address] Neurology 06/02/22 Food And Beverage Attendant Relationship Specialty Start Date End Date Kolby Kim MD [address] [place], [place] 274221 PCP - General Family Medicine 09/20/12 Rory Mckay MD [address] [place] [phone] Regulatory Coordinator Cardiology 12/01/21 Sunny Estrella RN [address] [place] [address] Stockroom Attendant Family Medicine 05/31/22 Shawn Santana MD 1 [facility] [address] [place], [place] 306441 Neurology 06/02/22 Food And Beverage Attendant Relationship Specialty Start Date End Date Kolby Kim MD [address] [place] [address] PCP - General Family Medicine 09/20/12 Rory Mckay MD [address] [place] [address] Regulatory Coordinator Cardiology 12/01/21 Sunny Estrella, RN [address] [place], [place] 3290431 Stockroom Attendant Family Medicine 05/31/2208/30 Shawn Santana MD 1 [facility] [address] [place], [place] 183721 Neurology 06/02/22 Becca Fenton RN [address] [place], [place] [phone] Stockroom Attendant 08/31/23 Food And Beverage Attendant Relationship Specialty Start Date End Date Kolby Kim MD [address] [place] [address] PCP - General Family Medicine 09/20/12 Rory Mckay MD [address] [place] [address] Regulatory Coordinator Cardiology 12/01/21 Shawn Santana MD 1 [facility] [address] Neurology 06/02/22 Becca Fenton RN [address] [place] [address] Stockroom Attendant 08/31/23 Food And Beverage Attendant Relationship Specialty Start Date End Date Kolby Kim MD [address] [place], [place] 485401 PCP - General Family Medicine 09/20/12 Rory Mckay MD [address] [place] [address] Regulatory Coordinator Cardiology 12/01/21 Shawn Santana MD 1 [facility] [place] [address] Neurology 06/02/22 Becca Fenton, RN [address] [place], [place] [phone] Stockroom Attendant 08/31/23 Food And Beverage Attendant Relationship Specialty Start Date End Date Kolby Kim MD [address] [place] [address] PCP - General Family Medicine 09/20/12 Rory Mckay MD [address] [place] [address] Regulatory Coordinator Cardiology 12/01/21 Shawn Santana MD 1 [facility] [place] [address] Neurology 06/02/22 Becca Fenton RN [address] [place], [place] [phone] Stockroom Attendant 08/31/23 Food And Beverage Attendant Relationship Specialty Start Date End Date Kolby Kim MD [address] [place], [place] 293781 PCP - General Family Medicine 09/20/12 Rory Mckay MD [address] [place] [address] Regulatory Coordinator Cardiology 12/01/21 Shawn Santana MD 1 [facility] [address] Neurology 06/02/22 Becca Fenton, RN [address] [place] [address] Stockroom Attendant 08/31/23 Food And Beverage Attendant Relationship Specialty Start Date End Date Kolby Kim MD [address] [place], [place] 942741 PCP - General Family Medicine 09/20/12 Rory Mckay MD [address] [place] [phone] Regulatory Coordinator Cardiology 12/01/21 Shawn Santana MD 1 [facility] [address] Neurology 06/02/22 Becca Fenton RN [address] [place] [address] Stockroom Attendant 08/31/23 Food And Beverage Attendant Relationship Specialty Start Date End Date Kolby Kim MD [address] [place], [place] 480151 PCP - General Family Medicine 09/20/12 Rory Mckay MD [address] [place] [phone] Regulatory Coordinator Cardiology 12/01/21 Shawn Santana MD 1 [facility] [address] [place], [place] 433051 Neurology 06/02/22 Becca Fenton RN [address] [place] [address] Stockroom Attendant 08/31/23 Food And Beverage Attendant Relationship Specialty Start Date End Date Kolby Kim MD [address] [place], [place] 755671 PCP - General Family Medicine 09/20/12 Rory Mckay MD [address] [place] [address] Regulatory Coordinator Cardiology 12/01/21 Shawn Santana MD 1 [facility] [address] [place], [place] 752051 Neurology 06/02/22 Bceca Fenton, RN [address] [place] [address] Stockroom Attendant 08/31/23 Food And Beverage Attendant Relationship Specialty Start Date End Date Kolby Kim MD [address] [place] [address] PCP - General Family Medicine 09/20/12 Rory Mckay MD [address] [place] [address] Regulatory Coordinator Cardiology 12/01/21 Shawn Santana MD 1 [facility] [address] Neurology 06/02/22 Becca Fenton RN [address] [place], [place] [phone] Stockroom Attendant 08/31/23 Food And Beverage Attendant Relationship Specialty Start Date End Date Kolby Kim MD [address] [place], [place] 889041 PCP - General Family Medicine 09/20/12 Rory Mckay MD [address] [place] [address] Regulatory Coordinator Cardiology 12/01/21 Shawn Santana MD 1 [facility] [address] [place], [place] 365041 Neurology 06/02/22 Becca Fenton, CARLOS [address] [place] [address] Stockroom Attendant 08/31/23 Food And Beverage Attendant Relationship Specialty Start Date End Date Kolby Kim MD [address] [place], [place] 438141 PCP - General Family Medicine 09/20/12 Rory Mckay MD [address] [place] [address] Regulatory Coordinator Cardiology 12/01/21 Shawn Santana MD [address] [facility] [address] Neurology 06/02/22 Becca Fenton RN [address] [place] [address] Stockroom Attendant 08/31/23 Food And Beverage Attendant Relationship Specialty Start Date End Date Kolby Kim MD [address] [place] [address] PCP - General Family Medicine 09/20/12 Rory Mckay MD [address] [place], [place] 167321 Regulatory Coordinator Cardiology 12/01/21 Shawn Santana MD 1 [facility] [address] [place], [place] 760271 Neurology 06/02/22 Becca Fenton RN [address] [place] [address] Stockroom Attendant 08/31/23 Food And Beverage Attendant Relationship Specialty Start Date End Date Kolby Kim MD [address] [place], [place] 297111 PCP - General Family Medicine 09/20/12 Rory Mckay MD [address] [place] [address] Regulatory Coordinator Cardiology 12/01/21 Shawn Santana MD 1 [facility] [address] [place], [place] [id number] Neurology 06/02/22 Becca Fenton, CARLOS [address] [place] [address] Stockroom Attendant 08/31/23 Food And Beverage Attendant Relationship Specialty Start Date End Date Kolby Kim MD [address] [place], [place] 198601 PCP - General Family Medicine 09/20/12 Rory Mckay MD [address] [place], [place] 386911 Regulatory Coordinator Cardiology 12/01/21 Shawn Santana MD 1 [facility] [address] Neurology 06/02/22 Becca Fenton RN [address] [place], [place] 6442831 Stockroom Attendant 08/31/23 Food And Beverage Attendant Relationship Specialty Start Date End Date Kolby Kim MD [address] [place], [place] 355651 PCP - General Family Medicine 09/20/12 Rory Mckay MD [address] [place] [address] Regulatory Coordinator Cardiology 12/01/21 Shawn Santana MD 1 [facility] [address] [place], [place] 575091 Neurology 06/02/22 Becca Fenton, RN [address] [place] [address] Stockroom Attendant 08/31/23 Food And Beverage Attendant Relationship Specialty Start Date End Date Kolby Kim MD [address] [place], [place] 953021 PCP - General Family Medicine 09/20/12 Rory Mckay MD [address] [place], [place] 198961 Regulatory Coordinator Cardiology 12/01/21 Shawn Santana MD 1 [facility] [address] [place], [place] 576141 Neurology 06/02/22 Becca Fenton, CARLOS [address] [place] [address] Stockroom Attendant 08/31/23 Food And Beverage Attendant Relationship Specialty Start Date End Date Kolby Kim MD [address] [place], [place] 270541 PCP - General Family Medicine 09/20/12 Rory Mckay MD [address] [place], [place] 326771 Regulatory Coordinator Cardiology 12/01/21 Shawn Santana MD 1 [facility] [address] [place], [place] 44[address] Neurology 06/02/22 Becca Fenton, RN [address] [place], [place] [phone] Stockroom Attendant 08/31/23 Food And Beverage Attendant Relationship Specialty Start Date End Date Kolby Kim MD [address] [place] [address] PCP - General Family Medicine 09/20/12 Rory Mckay MD [address] [place] [address] Regulatory Coordinator Cardiology 12/01/21 Shawn Santana MD 1 [facility] [address] [place], [place] 948901 Neurology 06/02/22 Becca Fenton RN [address] [place] [address] Stockroom Attendant 08/31/23 Food And Beverage Attendant Relationship Specialty Start Date End Date Kolby Kim MD [address] [place], [place] 770591 PCP - General Family Medicine 09/20/12 Rory Mckay MD [address] [place], [place] 497661 Regulatory Coordinator Cardiology 12/01/21 Shawn Santana MD 1 [facility] [place] [address] Neurology 06/02/22 Becca Fenton, CARLOS [address] [place] [address] Stockroom Attendant 08/31/23 Food And Beverage Attendant Relationship Specialty Start Date End Date Kolby Kim MD [address] [place], [place] 920671 PCP - General Family Medicine 09/20/12 Rory Mckay MD [address] [place] [address] Regulatory Coordinator Cardiology 12/01/21 Shawn Santana MD 1 [facility] [address] Neurology 06/02/22 Becca Fenton RN [address] [place] [address] Stockroom Attendant 08/31/23 Food And Beverage Attendant Relationship Specialty Start Date End Date Kolby Kim MD [address] [place] [address] 836771 PCP - General Family Medicine 09/20/12 Rory Mckay MD [address] [place] [address] Regulatory Coordinator Cardiology 12/01/21 Shawn Santana MD 1 [facility] [address] Neurology 06/02/22 Food And Beverage Attendant Relationship Specialty Start Date End Date Kolby Kim MD [address] [place] [address] PCP - General Family Medicine 09/20/12 Rory Mckay MD [facility] [place], [place] 549501 Regulatory Coordinator Cardiology 12/01/21 Shawn Santana MD 1 [facility] [address] Neurology 06/02/22 Food And Beverage Attendant Relationship Specialty Start Date End Date Kolby Kim MD [address] [place], [place] 993281 PCP - General Family Medicine 09/20/12 Rory Mckay MD [address] [place] [address] Regulatory Coordinator Cardiology 12/01/21 Shawn Santana MD 1 [facility] [address] Neurology 06/02/22 Food And Beverage Attendant Relationship Specialty Start Date End Date Kolby Kim MD [address] [place], [place] 017771 PCP - General Family Medicine 09/20/12 Rory Mckay MD [address] [place] [address] Regulatory Coordinator Cardiology 12/01/21 Shawn Santana MD 1 [facility] [address] Neurology 06/02/22 Food And Beverage Attendant Relationship Specialty Start Date End Date Kolby Kim MD [address] [place] [address] PCP - General Family Medicine 09/20/12 Rory Mckay MD [address] [place] [address] Regulatory Coordinator Cardiology 12/01/21 Shawn Santana MD 1 [facility] [address] Neurology 06/02/22 Becca Fenton, RN [address] [place] [address] Stockroom Attendant 08/31/2304/01 Food And Beverage Attendant Relationship Specialty Start Date End Date Kolby Kim MD [address] [place], [place] 046811 PCP - General Family Medicine 09/20/12 Rory Mckay MD [address] [place] [address] Regulatory Coordinator Cardiology 12/01/21 Shawn Santana MD 1 [facility] [address] Neurology 06/02/22 Food And Beverage Attendant Relationship Specialty Start Date End Date Kolby Kim MD [address] [place], [place] 418601 PCP - General Family Medicine 09/20/12 Rory Mckay MD [address] [place] [address] Regulatory Coordinator Cardiology 12/01/21 Shawn Santana MD 1 [facility] [address] Neurology 06/02/22 Food And Beverage Attendant Relationship Specialty Start Date End Date Kolby Kim MD [address] [place], [place] 301531 PCP - General Family Medicine 09/20/12 Rory Mckay MD [address] [place] [address] Regulatory Coordinator Cardiology 12/01/21 Shawn Santana MD 1 [facility] [address] Neurology 06/02/22 Food And Beverage Attendant Relationship Specialty Start Date End Date Kolby Kim MD [address] [place], [place] 267191 PCP - General Family Medicine 09/20/12 Rory Mckay MD [address] [place] [address] Regulatory Coordinator Cardiology 12/01/21 Sunny Estrella RN [address] [place] [address] Stockroom Attendant Family Medicine 05/31/2208/30 Shawn Santana MD 1 [facility] [address] Neurology 06/02/22 Food And Beverage Attendant Relationship Specialty Start Date End Date Kolby Kim MD [address] [place] [address] PCP - General Family Medicine 09/20/12 Ivis Carrington RN [address] [place] [address] Stockroom Attendant 03/21/2105/31/22 Rory Mckay MD [address] [place], [place] 0932731 Regulatory Coordinator Cardiology 12/01/21 Food And Beverage Attendant Relationship Specialty Start Date End Date Kolby Kim MD [address] [place], [place] 995431 PCP - General Family Medicine 09/20/12 Ivis Carrington, CARLOS [address] [place] [address] Stockroom Attendant 03/21/2105/31/22 Food And Beverage Attendant Relationship Specialty Start Date End Date Kolby Kim MD [address] [place], [place] 018331 PCP - General Family Medicine 09/20/12 Ivis Carrington RN [address] [place] [address] Stockroom Attendant 03/21/2105/31/22 Food And Beverage Attendant Relationship Specialty Start Date End Date Kolby Kim MD [address] [place], [place] 570331 PCP - General Family Medicine 09/20/12 Ivis Carrington RN [address] [place], [place] 9368131 Stockroom Attendant 03/21/2105/31/22 Food And Beverage Attendant Relationship Specialty Start Date End Date Kolby Kim MD [address] [place], [place] 758761 PCP - General Family Medicine 09/20/12 Rory Mckay MD [address] [place] [address] Regulatory Coordinator Cardiology 12/01/21 Shawn Santana MD [address] [place] [address] [place] [address] Neurology 06/02/22 Becca Fenton RN [address] [place] [address] Stockroom Attendant 2/2/24 Food And Beverage Attendant Relationship Specialty Start Date End Date [place], Kolby J, MD [address] [facility], [place] 695961 PCP - General Family Medicine 09/20/12 Food And Beverage Attendant Relationship Specialty Start Date End Date Kolby Kim MD [address] [facility] [place] 367[address] PCP - General Family Medicine 09/20/12 Rory Mckay MD [address] [place], [place] 651411 Regulatory Coordinator Cardiology 12/01/21 Shawn Santana MD 1 [facility] [address] Neurology 06/02/22 Food And Beverage Attendant Relationship Specialty Start Date End Date Kolby Kim MD [address] [place] [address] PCP - General Family Medicine 09/20/12 Rory Mckay MD [address] [place], [place] 180931 Regulatory Coordinator Cardiology 12/01/21 Shawn Santana MD 1 [facility] [place] [address] Neurology 06/02/22 Food And Beverage Attendant Relationship Specialty Start Date End Date Kolby Kim MD [address] [facility] [place] [address] PCP - General Family Medicine 09/20/12 Rory Mckay MD [address] [place] [address] Regulatory Coordinator Cardiology 12/01/21 Shawn Santana MD 1 [facility] [address] Neurology 06/02/22 Millie Olmedo APRN.SODA TESTER [address] [place], [place] 177391 Industrial Engineering Technician Family [facility] 07/07/24 Kaelyn Main APRN.SODA TESTER [address] [place] [address] [facility] 07/07/24 Food And Beverage Attendant Relationship Specialty Start Date End Date Kolby Kim MD [address] [place], [place] 920121 PCP - General Family Medicine 09/20/12 Rory Mckay MD [address] [place] [address] Regulatory Coordinator Cardiology 12/01/21 Shawn Santana MD 1 [facility] [address] Neurology 06/02/22 Millie Olmedo APRN.SODA TESTER [address] [place] [address] Industrial Engineering Technician Family [facility] 07/07/24 Kaelyn Main APRN.SODA TESTER [address] [place] [address] [facility] 07/07/24 Food And Beverage Attendant Relationship Specialty Start Date End Date Kolby Kim MD [address] [place] [address] PCP - General Family Medicine 09/20/12 Rory Mckay MD [address] [place] [address] Regulatory Coordinator Cardiology 12/01/21 Shawn Santana MD 1 [facility] [place] [address] Neurology 06/02/22 Millie Olmedo APRN.SODA TESTER [address] [place] [address] Industrial Engineering Technician Family Medicine 07/07/24 Kaelyn Main APRN.SODA TESTER [address] [place] [address] Industrial Engineering Technician Family Medicine 07/07/24 Food And Beverage Attendant Relationship Specialty Start Date End Date Kolby Kim MD [address] [place] [address] PCP - General Family Medicine 09/20/12 Rory Mckay MD [address] [place] [address] Regulatory Coordinator Cardiology 12/01/21 Shawn Santana MD 1 [facility] [address] [place], [place] 111[address] Neurology 06/02/22 Millie Olmedo APRN.SODA TESTER [address] [place] [address] [facility] 07/07/24 Kaelyn Main, 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 [address] [facility] [place] [address] [facility] 07/07/24 Food And Beverage Attendant Relationship Specialty Start Date End Date Kolby Kim MD [address] [facility] [place] [address] PCP - General Family Medicine 09/20/12 Rory Mckay MD [address] [place] [address] Regulatory Coordinator Cardiology 12/01/21 Shawn Santana MD 1 [facility] [place] [address] Neurology 06/02/22 Millie Olmedo, 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 [address] [place] [address] [facility] 07/07/24 Kaelyn Main, 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 [address] [place] [address] [facility] 07/07/24 Food And Beverage Attendant Relationship Specialty Start Date End Date Kolby Kim MD [address] [place] [address] PCP - General Family Medicine 09/20/12 Rory Mckay MD [address] [place] [address] Regulatory Coordinator Cardiology 12/01/21 Shawn Santana MD 1 [facility] [place] [address] Neurology 06/02/22 Millie Olmedo APRN.[employer]A TESTER [address] [place], [place] 122111 Industrial Engineering Technician Family Medicine 07/07/24 Kaelyn Main APRN.SODA TESTER [address] [place] [address] Industrial Engineering Technician Family Medicine 07/07/24 Food And Beverage Attendant Relationship Specialty Start Date End Date Kolby Kim MD [address] [place] [address] PCP - General Family Medicine 09/20/12 Rory Mckay MD [address] [place] [address] Regulatory Coordinator Cardiology 12/01/21 Shawn Santana MD 1 [facility] [place] [address] Neurology 06/02/22 Millie Olmedo APRN.SODA TESTER [address] [place], [place] 226812 [phone] Industrial Engineering Technician Family Medicine 07/07/24 Kaelyn Main 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 [address] [place], [place] 782371 [facility] Medicine 07/07/24 Food And Beverage Attendant Relationship Specialty Start Date End Date Kolby Kim MD [address] [place], [place] 236851 PCP - General Family Medicine 09/20/12 Rory Mckay MD [address] [facility] [place] [address] Regulatory Coordinator Cardiology 12/01/21 Shawn Santana MD [address] [facility] [place] [address] Neurology 06/02/22 Millie Olmedo APRN.SODA TESTER [address]40 [place] [address] Industrial Engineering Technician [facility] 07/07/24 Kaelyn Main APRN.SODA TESTER [address] [facility] [place] [address] Industrial Engineering [facility] 07/07/24 Food And Beverage Attendant Relationship Specialty Start Date End Date Kolby Kim MD [address] [facility] [place] [address] PCP - General Family Medicine 09/20/12 Rory Mckay MD [address] [facility] [place] [address] Regulatory Coordinator Cardiology 12/01/21 Shawn Santana MD [address] [facility] [place] [address] Neurology 06/02/22 Millie Olmedo APRN.SODA TESTER [address] [place] [address] Formerly [facility] 07/07/24 Kaelyn Main APRN.SODA TESTER [address] [facility] [place] [address] [facility] 07/07/24 Food And Beverage Attendant Relationship Specialty Start Date End Date Kolby Kim MD [address] [place] [address] PCP - General Family Medicine 09/20/12 Rory Mckay MD [address] [place] [address] Regulatory Coordinator Cardiology 12/01/21 Shawn Santana MD [address] [place] [address] Neurology 06/02/22 Millie Olmedo APRN.SODA TESTER [address]40 [facility] [place] [address] Formerly [facility] 07/07/24 Kaelyn Main 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 [address] [facility] [place] [address] Formerly [facility] 07/07/24 Food And Beverage Attendant Relationship Specialty Start Date End Date Kolby Kim MD [address] [place] [address] PCP - General Family Medicine 09/20/12 Rory Mckay MD [address] [facility] [address] Regulatory Coordinator Cardiology 12/01/21 Shawn Santana MD [address] [facility] [place] [address] Neurology 06/02/22 Millie Olmedo APRN.SODA TESTER [address] [place] [address] Formerly [facility] 07/07/24 Kaelyn Main APRN.SODA TESTER [address] [facility] [place] [address] Formerly [facility] 07/07/24 Food And Beverage Attendant Relationship Specialty Start Date End Date Kolby Kim MD [address] [facility] [place] [address] PCP - General Family Medicine 09/20/12 Rory Mckay MD [address] [facility] [place] [address] Regulatory Coordinator Cardiology 12/01/21 Shawn Santana MD [address] [facility] [place] [address] Neurology 06/02/22 Millie Olmedo APRN.SODA TESTER [address] [place] [address] Formerly [facility] 07/07/24 Kaelyn Main APRN.SODA TESTER [address] [facility] [place] [address] Formerly [facility] 07/07/24 Team Status: Active Member Role/Relationship Status Dates Dr. Kolby Kim MD Primary Care Provider Active Team Status: Inactive Member Role/Relationship Status Dates Dr. Kolby Kim MD Primary Care Provider Active Start: March 23, 2025 End: March 23, 2025 Dr. Kolby Kim MD Referring Provider Active Start: March 23, 2025 End: March 23, 2025 Joy Adame FLUE GAS ANALYST, FLUE GAS ANALYST-C Attending Provider Active Start: March 23, 2025 End: March 23, 2025 Food And Beverage Attendant Relationship Specialty Start Date End Date Kolby Kim MD [address] [place] [address] PCP - General Family Medicine 09/20/12 Rory Mckay MD [address] [place] [address] Regulatory Coordinator Cardiology 12/01/21 Shawn Santana MD [address] [place] [address] Neurology 06/02/22 Millie Olmedo, 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 [address] [place] [address] Industrial Engineering Technician Family Medicine 07/07/24 Kaelyn Main 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 [address] [place] [address] Industrial Engineering Technician [facility] 07/07/24 Food And Beverage Attendant Relationship Specialty Start Date End Date Kolby Kim MD [address] [place] [address] PCP - General Family Medicine 09/20/12 Rory Mckay MD [address] [place] [address] Regulatory Coordinator Cardiology 12/01/21 Shawn Santana MD [address] [place] [address] Neurology 06/02/22 Millie Olmedo, 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 [address] [place] [address] Formerly [facility] 07/07/24 Kaelyn Main APRN.SODA TESTER [address] [place], [place] [address] Formerly [facility] 07/07/24 Food And Beverage Attendant Relationship Specialty Start Date End Date Kolby Kim MD [address] [place] [address] PCP - General Family Medicine 09/20/12 Rory Mckay MD [address] [place] [address] Regulatory Coordinator Cardiology 12/01/21 Shawn Santana MD [address] [place] [address] Neurology 06/02/22 Millie Olmedo APRN.SODA TESTER [address] [place], [place] [id number] Formerly [facility] 07/07/24 Kaelyn Main 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 [address] [place] [address] Formerly [facility] 07/07/24 Goals (unrecognized section and content) Goals may be documented in a n alternate sectionGoals may be documented in an alternate sectionGoals may be documented in an alternate sectionGoals may be documented in an alternate sectionGoals may be documented in an alternate sectionGoals may be documented in an alternate sectionGoals may be documented in an alternate sectionGoals may be documented in an alternate sectionGoals may be documented in an alternate section INFORMATION SOURCE (unrecogn ized section and content) DATE CREATED AUTHOR 12/01/2022 [facility] DATE CREATED AUTHOR AUTHOR'S YANELY ATION 05/03/2023 [facility] DATE CREATED AUTHOR AUTHOR'S ORGANIZ ATION 03/24/2025 [facility] DATE CREATED AUTHOR AUTHOR'S ORGANIZ ATION 04/15/2025 [facility] FOR RECORDS PERTAINING TO PATIENTS WHO ARE OR HAVE BEEN ENROLLED IN A CHEMICAL DEPENDENCY/SUBSTANCEABUSE PROGRAM, SOME INFORMATION MAY BE OMITTED. This clinical summary was aggregated from multiple sources. Caution should be exercised in using it in the provision of clinical care. This summary normalizes information from multiple sources, and as a consequence, information in this document may materially change the coding, format and clinical context of patient data. In addition, data may be omitted in some cases. CLINICAL DECISIONS SHOULD BE BASED ON THE PRIMARY CLINICAL RECORDS. [employer] provides no warranty or guarantee of the accuracy or completeness of information in this document.
[2025-04-19 17:40] LABS: Anion Gap 6 (5-15); BUN 19 mg/dL (4-19); BUN/Creat Ratio 14.5 RATIO (10-20); Calcium,Total 9.2 mg/dL (7.6-11.0); Carbon Dioxide 39.9 mmol/L (21.0-32.0); Chloride 101 mmol/L (98-108); Estimated Creatinine Clearance 25.01 ml/min (50-250); Glucose 112 mg/dL (70-99); Potassium 4.3 mmol/L (3.3-5.1); Troponin T High Sensitivity 25 ng/L (<=14)
--- NOTE | 2025-04-19 17:47 | EX.ED.DYSGE1 ---
HPI History of Present Illness Chief Complaint: General Illness Detail of Chief Complaint: Diaphoretic, pale and low oxygen Informant: friend and EMS Onset/Context/Timing Onset: Today Context: Sudden Onset Timing: Intermittent Quality: Patient outside without her . Detailed HPI narrative Location: Patient front yard Current Severity: Gone Maximum Severity: Severe Worsened by: Apparently patient has a long oxygen to the tube which shut in the door and Relieved by: Once paramedics arrived and placed her arm appropriate oxygen Associated Symptoms Associated Symptoms: Uncertain because patient has dementia Narrative Narrative: 79-year-old woman with history of asthma, Lewy body dementia, paroxysmal atrial fibrillation, visual hallucinations, thoracic aortic aneurysm, chronic diastolic heart failure, mechanical aortic valve, essential hypertension, GERD and history of atherosclerotic heart disease. Neighbor noted she was outside by herself. This is unusual. She is normally with her . She was noted to be respiratory distress diaphoretic pale as noted by paramedics the O2 tubing was kinked and the door and the tubing was of significant length. They brought her to the ER since her was not home who is her director of health care marketing. Patient presently denies everything. She presently has no symptoms of chest pain shortness of breath difficulty breathing etc. Prior similar symptoms: No Recent Illness/Hospitalization: No PFSH PFSH Medical History Lewy body dementia CKD (chronic kidney disease), stage II NSTEMI, initial episode of care History of cardioversion (~07/08/20) Chronic diastolic heart failure Bronchiectasis Essential hypertension Cough Allergic rhinitis GERD (gastroesophageal reflux disease) Chronic a-fib Hypoxemia Anxiety Chronic anticoagulation Severe sepsis CAP (community acquired pneumonia) Hemoptysis Atherosclerotic heart disease of [place] coronary artery without angina pectoris Syncope and collapse Palpitations Nonspecific chest pain Aneurysm, thoracic aortic Nonrheumatic aortic valve regurgitation Fatigue 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 Chronic sinusitis Asthma Aortic stenosis Obesity Hiatal hernia Depression Hyperlipidemia Hypertension Home Medications ?Medication ?Instructions ?Recorded ?Last Taken ?Type bupropion HCl 150 mg 24 hr tablet, 150 mg PO DAILY DEPRESSION 11/15/15 07/07/20 History extended release montelukast 10 mg tablet 10 mg PO QHS ALLERGIES 05/03/17 07/06/20 History potassium chloride 20 mEq 20 meq PO DAILY SUPPLEMENT 05/03/17 07/06/20 History tablet,extended release(part/cryst) nitroglycerin 0.4 mg sublingual 0.4 mg sublingual Q5M PRN 11/03/22 Unknown Rx tablet Cardiac/Chest Pain 30 days #30 tabs ipratropium bromide 21 mcg (0.03 2 spray intranasal BID #30 mL 06/11/23 Unknown Rx %) nasal spray paroxetine HCl 30 mg tablet 30 mg PO DAILY 08/06/23 Unknown History amiodarone 200 mg tablet 100 mg (1/2 x 200 mg) PO DAILY #45 09/25/23 Unknown Rx tabs amlodipine 2.5 mg tablet 2.5 mg PO DAILY #90 tabs 11/29/23 Unknown Rx albuterol sulfate 90 mcg/actuation 2 puff inhalation Q6H PRN 03/20/24 Unknown Rx aerosol inhaler shortness of breath or wheezing #8.5 grams loratadine 10 mg tablet 10 mg PO DAILY #90 tabs 06/02/24 Unknown Rx acetaminophen 500 mg tablet 500 mg PO Q4H PRN pain 06/14/24 Unknown History furosemide 40 mg tablet 40 mg PO BIDLX 30 days #60 tabs 06/18/24 Unknown Rx pantoprazole 40 mg tablet,delayed 40 mg PO DAILY ACID REFLUX #7 tabs 06/18/24 07/07/20 Rx release ezetimibe 10 mg tablet See Rx Instructions .Route 10/21/24 Unknown Rx .COMPLEX #90 TABLETS diazepam 2 mg tablet 1 mg PO 4X/DAY 11/12/24 Unknown History ferrous sulfate 325 mg (65 mg 325 mg PO QDAY Check with primary 11/12/24 Unknown History iron) tablet doctor rivastigmine tartrate 1.5 mg 1.5 mg PO BID 11/12/24 Unknown History capsule warfarin 1 mg tablet 1 mg PO QDAY 11/12/24 Unknown History warfarin 2.5 mg tablet 5 mg PO ONCE PRN Check with 11/12/24 Unknown History primary doctor warfarin 3 mg tablet 3 mg PO ONCE PRN blood thinner 11/12/24 Unknown History albuterol sulfate 2.5 mg/3 mL 2.5 mg (3 mL) inhalation BID #60 03/23/25 Unknown Rx (0.083 %) solution for nebulization vials aspirin 81 mg tablet,delayed 81 mg PO BREAKFAST 03/31/25 Unknown History release metoprolol succinate 50 mg 50 mg PO DAILY #90 tabs 03/31/25 Unknown Rx tablet,extended release 24 hr Allergy/AdvReac Type Severity Reaction Status Date / Time risperidone Allergy Severe Confusion Verified 03/23/25 13:33 Sulfa (Sulfonamide Allergy Swelling Verified 03/23/25 13:33 Antibiotics) celecoxib (From Celebrex) AdvReac Severe Swelling Verified 03/23/25 13:33 dextromethorphan (From AdvReac Severe hallucinati Verified 03/23/25 13:33 Delsym) on adhesive AdvReac blisters Verified 03/23/25 13:33 codeine AdvReac Itching Verified 03/23/25 13:33 levofloxacin (From Levaquin) AdvReac pain in Verified 03/23/25 13:33 legs and swelling lisinopril AdvReac cough Verified 03/23/25 13:33 oxycodone (Oxycodone) AdvReac Itching Verified 03/23/25 13:33 oxycodone HCl (From Percocet) AdvReac Itching Verified 03/23/25 13:33 Penicillins AdvReac heart Verified 03/23/25 13:33 palpitations prochlorperazine edisylate AdvReac Low blood Verified 03/23/25 13:33 (From Compazine) pressure prochlorperazine maleate AdvReac Low blood Verified 03/23/25 13:33 (From Compazine) pressure tramadol HCl (From Ultram) AdvReac Itching Verified 03/23/25 13:33 Family History Mother Arthritis CAD (coronary artery disease) Father Arthritis High cholesterol CAD (coronary artery disease) Sister Diabetes High cholesterol Hypertension Brother Diabetes High cholesterol Hypertension Surgical History History of mechanical aortic valve replacement (~10/07/13) History of back surgery History of sinus surgery History of hysterectomy History of foot surgery H/O aortic valve replacement Social History household members: spouse number of children: 2 Smoking Status: Never smoker alcohol intake: never substance use type: does not use caffeine: Yes Type: coffee what type of physical activity do you participate in: none seatbelt use: always do you feel safe at home: Yes ROS ROS ED Review of Systems ROS Unobtainable: due to mental status Constitutional Constitutional ED: Denies chills, fever(s), subjective or sweats Cardiovascular Cardiovascular: Denies chest pain or palpitations Respiratory/Chest Respiratory/Chest: Reports dyspnea on exertion; Denies cough Gastrointestinal Gastrointestinal: Denies vomiting Integumentary Denies rash Neurologic Neurologic: Denies headache(s) or weakness Psychiatric Psychiatric: Denies anxiety Hematologic/Lymphatic Hematologic/Lymphatic: Reports systems reviewed and no addt'l complaints, except as documented EXAM Physical Exam Const Vital Signs: 04/19/25 17:05 04/19/25 17:08 Temperature 98.9 F Temperature Source Oral Pulse Rate 99 Respiratory Rate 20 H Respiratory Effort Normal Non-Labored Respiratory Pattern Normal Blood Pressure 99/67 Blood Pressure Mean 77 Pulse Ox 100 Oxygen Delivery Method Room Air Positive well nourished and well developed Constitutional Narrative: Pleasant elderly woman who appears in no distress. Her oxygen level is 100% on O2. General Appearance ED: well developed; Negative for pallor HEENT Reports moist mucous membranes HEENT Narrative: Head is atraumatic and normocephalic. Ears normal. Nares patent. Posterior pharynx is normal. Eyes PERRL and EOMs intact bilaterally General Eye ED: Yes pale conjunctiva; Negative for scleral icterus Neck no lymphadenopathy, supple and no JVD Chest Wall inspection of chest normal and palpation of chest normal Resp normal respiratory effort and clear to auscultation bilaterally Cardio regular rate, regular rhythm, S1 normal heart sound and S2 normal heart sound GI normal to inspection, nondistended, normoactive bowel sounds, non-tender and non-distended; Negative for hepatosplenomegaly Back/Spine no CVA tenderness Extremity normal to inspection General Extremety ED: Negative for edema or tenderness General Extremity: Negative for edema Neuro No oriented x3, CN's II-XII intact bilaterally and no sensory deficits noted Motor Exam: strength 5/5 throughout Psych mental status grossly normal Skin no rashes or lesions noted, no wounds and No skin turgor normal General Skin Exam: Negative for elasticity normal, jaundice or pallor MDM MDM MDM Narrative Medical decision making narrative: Suspect patient's symptoms are due to the fact that she was not on her oxygen. Because she was diaphoretic gasping for breath will obtain EKG and troponin to rule out cardiac ischemia. CBC to assess H&H and she appears pale and no other information is available. BMP to assess glucose renal function. Lab Data Attestation: I reviewed the patient's lab results. Lab results narrative: CBC reveals mild anemia. This is chronic. Indices are normal. Electrolyte panel is remarkable for sodium 147. Creatinine is elevated to 1.3 which is abnormal for patient. Glucose is slightly elevated 112 within normal anion gap. She has an elevated CO2 which is approximately her baseline. First troponin is elevated 25. 2 hours pending. Labs: Laboratory Results - last 24 hr 04/19/25 04/19/25 17:15 19:27 WBC 5.8 RBC 3.71 L Hgb 9.9 L Hct 35.6 L MCV 96.0 MCH 26.7 L MCHC 27.8 L RDW Std Deviation 46.4 H RDW Coeff of Loki 13.2 Plt Count 219 MPV 10.6 Immature Gran % (Auto) 0.300 Neut % (Auto) 78.4 H Lymph % (Auto) 9.0 L Haakon % (Auto) 9.0 Eos % (Auto) 2.4 Baso % (Auto) 0.9 Absolute Neuts (auto) 4.5 Absolute Lymphs (auto) 0.52 L Nucleated RBC % 0 Sodium 147 H Potassium 4.3 Chloride 101 Carbon Dioxide 39.9 H Anion Gap 6 BUN 19 Creatinine 1.30 H Estim Creat Clear Calc 25.01 L Est GFR (MDRD) Non-Af 42 L BUN/Creatinine Ratio 14.5 Glucose 112 H Calcium 9.2 Troponin T High Sens 25 H Troponin T Hi Sens 2 Hr 28 H Radiography Chest X-Ray - ED: Read by ED Physician (Independent reviewed interpreted by me. It is unchanged from chest x-ray that was obtained June 14, 2024. Inspiratory volume is limited. Left and right heart border are secured. There is no evidence of pneumothorax. There is no cephalization. There is a hiatal hernia noted. There is also ) Diagnostic Testing: Clinical Impression(s) from Imaging Studies Chest X-Ray 04/19/25 17:20 IMPRESSION: No interval change Reading Location: [facility] Discharge Plan Triage Chief Complaint: General Illness ED Provider: Ben Rock Dx/Rx/DC Orders Clinical Impression: Acute respiratory distress, History of COPD, Chronic hypoxemic respiratory failure, Lewy body dementia, Essential hypertension Instructions: ED Dyspnea Prescriptions: No Action ferrous sulfate 325 mg (65 mg iron) tablet 325 mg PO QDAY Patient Comments: TAKE 1 TABLET BY MOUTH TWICE DAILY WITH MEALS ipratropium bromide 21 mcg (0.03 %) spray,non-aerosol 2 spray intranasal BID Qty: 30 3RF Rx Instructions: administer into each nostril diazepam 2 mg tablet 1 mg PO 4X/DAY warfarin 3 mg tablet 3 mg PO ONCE PRN (Reason: blood thinner) Patient Comments: 06/16/[address] Cornejo office: 5mg on Sunday and 3mg all other days of the week. paroxetine HCl 30 mg tablet 30 mg PO DAILY albuterol sulfate 90 mcg/actuation HFA aerosol inhaler 2 puff inhalation Q6H PRN (Reason: shortness of breath or wheezing) Qty: 8.5 11RF Rx Instructions: administer with spacer rivastigmine tartrate 1.5 mg capsule 1.5 mg PO BID warfarin 1 mg tablet 1 mg PO QDAY Rx Instructions: 2 mg 3 times per week, 1 mg rest of days bupropion HCl 150 MG tablet extended release 24 hr 150 mg PO DAILY Patient Comments: depression potassium chloride 20 MEQ tablet 20 meq PO DAILY montelukast 10 MG tablet 10 mg PO QHS warfarin 2.5 mg tablet 5 mg PO ONCE PRN (Reason: Check with primary doctor) Patient Comments: 06/16/[address] Cornejo office: . nitroglycerin 0.4 mg Tablet, Sublingual 0.4 mg sublingual Q5M PRN (Reason: Cardiac/Chest Pain) 30 Days Qty: 30 0RF acetaminophen 500 mg tablet 500 mg PO Q4H PRN (Reason: pain) furosemide 40 mg Tablet 40 mg PO BIDLX 30 Days Qty: 60 0RF pantoprazole 40 MG tablet 40 mg PO DAILY Qty: 7 0RF Patient Comments: stomach amiodarone 200 mg tablet 100 mg PO DAILY Qty: 45 3RF amlodipine 2.5 mg tablet 2.5 mg PO DAILY Qty: 90 3RF loratadine 10 mg tablet 10 mg PO DAILY Qty: 90 3RF ezetimibe 10 mg tablet See Rx Instructions .ROUTE .COMPLEX Qty: 90 3RF Dose Instruction: TAKE 1 TABLET BY MOUTH DAILY Rx Instructions: TAKE 1 TABLET BY MOUTH DAILY albuterol sulfate 2.5 mg /3 mL (0.083 %) solution for nebulization 2.5 mg inhalation BID Qty: 60 11RF aspirin 81 mg tablet,delayed release (DR/EC) 81 mg PO BREAKFAST metoprolol succinate 50 mg tablet extended release 24 hr 50 mg PO DAILY Qty: 90 3RF Primary Care Provider: Harley Cornejo Referrals: Harley Cornejo MD [Primary Care Provider, Medical] - As Needed Print Language: Albanian Disposition Disposition: Home, Self Care
[2025-04-19 20:09] LABS: Troponin T High Sens 2 HR 28 ng/L (<=14)
[2025-04-19 20:41] VITALS: BP 108/73; PULSE 61; RESP 18; TEMP 36.7; O2SAT 98
== END 2025-04-19 20:46 | disposition home or self-care (01) ==
PROVIDERS: Emergency Provider Emergency Medicine; PCP Family Medicine; Visit Provider Emergency Medicine
DX: J96.11 Chronic respiratory failure with hypoxia (principal); I13.0 Hypertensive heart and chronic kidney disease with heart failure and stage 1 through stage 4 chronic kidney disease, or unspecified chronic kidney disease; I50.32 Chronic diastolic (congestive) heart failure; G31.83 Neurocognitive disorder with Lewy bodies; F02.80 Dementia in other diseases classified elsewhere, unspecified severity, without behavioral disturbance, psychotic disturbance, mood disturbance, and anxiety; J44.9 Chronic obstructive pulmonary disease, unspecified; I48.0 Paroxysmal atrial fibrillation; I25.10 Atherosclerotic heart disease of native coronary artery without angina pectoris; N18.2 Chronic kidney disease, stage 2 (mild); E78.5 Hyperlipidemia, unspecified; D64.9 Anemia, unspecified
CPT/HCPCS: 71046; 80048; 84484; 85025; 93005; 99285; A4216

== ENCOUNTER 2025-05-05 12:52 | Emergency (ER) | payer MEDICARE, OTHER, SELFPAY ==
[2025-05-05 12:53] VITALS: BP 105/70; PULSE 100; RESP 20; TEMP 36.6; O2SAT 100; BMI 18.7
--- NOTE | 2025-05-05 13:47 | CT_ITS ---
PROCEDURE: BRAIN/HEAD WITHOUT CONTRAST 05/05/2025 REASON FOR EXAM: FALLS, WEAKNESS Patient is on Coumadin. TECHNIQUE: Procedure Code: CTBR Modality: CT Procedure: BRAIN/HEAD WITHOUT CONTRAST Coronal and Sagittal reconstruction series were provided. One or more dose reduction techniques were used (e.g., Automated exposure control, adjustment of the mA and/or kV according to patient size, use of iterative reconstruction technique. RADIATION DOSE SUMMARY: CTDlvol: 44.99 mGy DLP: 779.24 mGycm COMPARISON: Prior study dated April 07, 2024. FINDINGS: Brain: Low density in the periventricular white matter suggests mild chronic small vessel ischemic changes. CSF Spaces: Mild generalized cerebral atrophy Sinuses/Mastoids: Clear at visualized levels Bones: No fracture. CT/Brain/Head without Contrast IMPRESSION: CHRONIC CHANGES. NO ACUTE FINDINGS. Reading Location: [id number]
[2025-05-05] MEDS: HYDROcodone Bitartrate/Apap 5/325 Tablet PO (13:51)
[2025-05-05 13:53] VITALS: BP 112/70; PULSE 108; PULSE 111; RESP 18; O2SAT 100; O2SAT 98
--- NOTE | 2025-05-05 13:56 | EDS_ITS ---
HPI HPI - Fall History of Present Illness Chief Complaint: Fall Informant: patient Narrative Narrative: Patient is an 79-year-old female with history of end-stage COPD, Lewy body dementia, approximately show fibrillation, chronic Coumadin therapy, chronic respiratory failure on 4 L of oxygen at baseline who is currently under hospice care but presenting from home for increased falls. Spoke to her , Dominic, on the phone. He states that over the past week and she has had increased falls but has been refusing transportation. She has bruising and seems to have pain to her left arm. He would like her evaluated for injuries an d also evaluate for head bleed. He states he seems of worsened over the past few days. [facility] Medical History Lewy body dementia CKD (chronic kidney disease), stage II NSTEMI, initial episode of care History of cardioversion (~07/08/20) Chronic diastolic heart failure Bronchiectasis Essential hypertension Cough Allergic rhinitis GERD (gastroesophageal reflux disease) Chronic a-fib Hypoxemia Anxiety Chronic anticoagulation Severe sepsis CAP (community acquired pneumonia) Hemoptysis Atherosclerotic heart disease of [place] coronary artery without angina pectoris Syncope and collapse Palpitations Nonspecific chest pain Aneurysm, thoracic aortic Nonrheumatic aortic valve regurgitation Fatigue 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 Chronic sinusitis Asthma Aortic stenosis Obesity Hiatal hernia Depression Hyperlipidemia Hypertension Home Medications ?Medication ?Instructions ?Recorded ?Last Taken ?Type bupropion HCl 150 mg 24 hr tablet, 150 mg PO DAILY DEP RESSION 11/15/15 07/07/20 History extended release montelukast 10 mg tablet 10 mg PO QHS ALLERGIES 05/0307/06/20 History potassium chloride 20 mEq 20 meq PO DAILY SUPPLEMENT 1 07/06/20 History tablet,extended release(part/cryst) nitroglycerin 0.4 mg sublingual 0.4 mg sublingual Q5M PRN 11/03/22 Unknown Rx tablet Cardiac/Chest Pain 30 days # 30 tabs ipratropium bromide 21 mcg (0.03 2 spray intranasal BI D #30 mL 06/11/23 Unknown Rx %) nasal spray paroxetine HCl 30 mg tablet 30 mg PO DAILY 08/06/23 Un known History amiodarone 200 mg tablet 100 mg (1/2 x 200 mg) PO BRETT LY #45 09/25/23 Unknown Rx tabs amlodipine 2.5 mg tablet 2.5 mg PO DAILY #90 tabs 09/22 Unknown Rx albuterol sulfate 90 mcg/actuation 2 puff inhalation Q 6H PRN 03/20/24 Unknown Rx aerosol inhaler shortness of breath or wheez ing #8.5 grams loratadine 10 mg tablet 10 mg PO DAILY #90 tabs 1111/20 Unknown Rx acetaminophen 500 mg tablet 500 mg PO Q4H PRN pain Unknown History furosemide 40 mg tablet 40 mg PO BIDLX 30 days #60 t abs 06/18/24 Unknown Rx pantoprazole 40 mg tablet,delayed 40 mg PO DAILY ACID REFLUX #7 tabs 06/18/24 07/07/20 Rx release ezetimibe 10 mg tablet See Rx Instructions .Route 0 10/21/24 Unknown Rx .COMPLEX #90 TABLETS diazepam 2 mg tablet 1 mg PO 4X/DAY 11/12/24 Unkn own History ferrous sulfate 325 mg (65 mg 325 mg PO QDAY Check wit h primary 11/12/24 Unknown History iron) tablet doctor rivastigmine tartrate 1.5 mg 1.5 mg PO BID 11/12/24 Un known History capsule warfarin 1 mg tablet 1 mg PO QDAY 11/12/24 Unknow n History warfarin 2.5 mg tablet 5 mg PO ONCE PRN Check with 11/12/24 Unknown History primary doctor warfarin 3 mg tablet 3 mg PO ONCE PRN blood thinn er 11/12/24 Unknown History albuterol sulfate 2.5 mg/3 mL 2.5 mg (3 mL) inhalation BID #60 03/23/25 Unknown Rx (0.083 %) solution for nebulization vials aspirin 81 mg tablet,delayed 81 mg PO BREAKFAST Unknown History release metoprolol succinate 50 mg 50 mg PO DAILY #90 tabs 09/23 Unknown Rx tablet,extended release 24 hr pravastatin 80 mg tablet 80 mg PO QHS 05/05/25 Unknow n History Allergy/AdvReac Type Severity Reaction Status Date / Time risperidone Allergy Severe Confusion Verified 05/05/25 12:56 Sulfa (Sulfonamide Allergy Swelling Verified 05/05/25 12:56 Antibiotics) celecoxib (From Celebrex) AdvReac Severe Swelling Verified 05/05/25 12:56 dextromethorphan (From AdvReac Severe hallucinati Verified 05/05/25 12:56 Delsym) on adhesive AdvReac blisters Verified 05/05/25 12:56 codeine AdvReac Itching Verified 05/05/25 12:56 levofloxacin (From Levaquin) AdvReac pain in Verified 05/05/25 12:56 legs and swelling lisinopril AdvReac cough Verified 05/05/25 12:56 oxycodone (Oxycodone) AdvReac Itching Verified 05/05/25 12:56 oxycodone HCl (From Percocet) AdvReac Itching Verified 05/05/25 12:56 Penicillins AdvReac heart Verified 05/05/25 12:56 palpitations prochlorperazine edisylate AdvReac Low blood Verified 05/05/25 12:56 (From Compazine) pressure prochlorperazine maleate AdvReac Low blood Verified 05/05/25 12:56 (From Compazine) pressure tramadol HCl (From Ultram) AdvReac Itching Verified 05/05/25 12:56 Family History Mother Arthritis CAD (coronary artery disease) Father Arthritis High cholesterol CAD (coronary artery disease) Sister Diabetes High cholesterol Hypertension Brother Diabetes High cholesterol Hypertension Surgical History History of mechanical aortic valve replacement (~10/07/13) History of back surgery History of sinus surgery History of hysterectomy History of foot surgery H/O aortic valve replacement Social History household members: spouse number of children: 2 Smoking Status: Never smoker alcohol intake: never substance use type: does not use caffeine: Yes Type: coffee what type of physical activity do you participate in: none seatbelt use: always do you feel safe at home: Yes ROS ROS ED Review of Systems ROS Unobtainable: due to mental status EXAM Physical Exam Const Vital Signs: 05/05/25 12:53 05/05/25 13:53 05/05/25 13:53 Temperature 97.9 F Temperature Source Oral Pulse Rate 100 111 H 108 H Respiratory Rate 20 H 18 18 Blood Pressure 105/70 112/70 112/70 Blood Pressure Mean 81 84 84 Pulse Ox 100 98 100 Oxygen Delivery Method Nasal Cannula Nasal Cannula Oxygen Flow Rate (L/min) 4 3.5 05/05/25 14:00 05/05/25 15:00 05/05/25 15:30 Temperature 98.6 F Temperature Source Pulse Rate 111 H 103 H 109 H Respiratory Rate 18 16 18 Blood Pressure 112/70 88/63 L 99/66 Blood Pressure Mean 84 71 77 Pulse Ox 98 100 100 Oxygen Delivery Method Room Air Oxygen Flow Rate (L/min) Constitutional Narrative: Chronically ill-appearing, no acute distress HEENT Reports normocephalic and TM's normal bilaterally atraumatic Eyes PERRL and EOMs intact bilaterally Neck General: Negative for tenderness Chest Wall inspection of chest normal Resp Resp Narrative: Mildly tachypneic Cardio regular rate and regular rhythm GI non-tender and non-distended Extremity Extremity Narrative: Bruising and edema noted to the left upper extremity. The tenderness of the proximal humerus down to the elbow. Decreased range of motion of the elbow and shoulder. Normal range of motion with no tenderness of the left hand. No other bony tenderness or deformity present. Neuro moves all extremities and no focal motor deficits Neuro Narrative: Generally weak. Oriented to self only. Psych mental status grossly normal Skin Skin Narrative: Ecchymosis to the left upper extremity most pronounced around the elbow MDM MDM MDM Narrative Medical decision making narrative: Patient is evaluated for left arm pain and bruising as well as frequent falls. She did hit her head. She is from home. She is on hospice care for end-stage COPD as well as Lewy body dementia. On initial evaluation patient is resting but anytime she tries to move she does have increased pain. She is on her baseline 4 L of oxygen. She has bruising and swelling to her left upper extremity but no other bony tenderness or abnormalities. X-ray of the humerus and elbow is obtained looking for underlying fracture. I did speak to her on the phone who states that he is concerned about intracranial hemorrhage as she is on Coumadin and she has been falling more and would like a CT of the brain to see if she does have a head bleed. This is obtained. CT of the brain does not show any acute process. Humerus x-ray viewed by myself as radiology does show a nondisplaced transverse fracture of the surgical neck of the proximal left humerus and soft tissue swelling. Elbow x-ray reviewed by myself as ideology is not show any acute fracture. Patient is given a sling. Given oral [place] for pain control emergency room. I did speak with her hospice nurse who states that they will help with pain management. She has a prescription for morphine sulfate to take as needed already. Is given outpatient orthopedic follow-up. Is placed in the sling. would like to take her home. At this time it does not seem that she needs transfer for inpatient hospice. Patient does have improvement of her mentation is much more alert throughout her stay in the emergency room. Discharged home. Radiography Diagnostic Testing: Clinical Impression(s) from Imaging Studies Brain CT 05/05/25 13:47 IMPRESSION: CHRONIC CHANGES. NO ACUTE FINDINGS. Reading Location: [id number] Elbow X-Ray 05/05/25 14:27 IMPRESSION: No acute abnormality is seen. Reading Location: [facility] Humerus X-Ray 05/05/25 14:27 IMPRESSION: Nondisplaced transverse fracture through the surgical neck of the proximal left humerus with extension to the greater tuberosity. Soft tissue swelling. Reading Location: [id number] Management Discussion w/another healthcare provider: Other (Hospice ) Discharge Plan Triage Chief Complaint: Fall ED Provider: Velma Leavitt Dx/Rx/DC Orders Clinical Impression: Falls, Closed fracture of left proximal humerus Instructions: ED Fracture, Upper Extremity Prescriptions: No Action ferrous sulfate 325 mg (65 mg iron) tablet 325 mg PO QDAY Patient Comments: TAKE 1 TABLET BY MOUTH TWICE DAILY WITH MEALS ipratropium bromide 21 mcg (0.03 %) spray,non-aerosol 2 spray intranasal BID Qty: 30 3RF Rx Instructions: administer into each nostril diazepam 2 mg tablet 1 mg PO 4X/DAY warfarin 3 mg tablet 3 mg PO ONCE PRN (Reason: blood thinner) Patient Comments: 06/16/[address] Cornejo office: 5mg on Sunday and 3mg all other days of the week. paroxetine HCl 30 mg tablet 30 mg PO DAILY albuterol sulfate 90 mcg/actuation HFA aerosol inhaler 2 puff inhalation Q6H PRN (Reason: shortness of breath or wheezing) Qty: 8.5 11RF Rx Instructions: administer with spacer rivastigmine tartrate 1.5 mg capsule 1.5 mg PO BID warfarin 1 mg tablet 1 mg PO QDAY Rx Instructions: 2 mg 3 times per week, 1 mg rest of days bupropion HCl 150 MG tablet extended release 24 hr 150 mg PO DAILY Patient Comments: depression potassium chloride 20 MEQ tablet 20 meq PO DAILY montelukast 10 MG tablet 10 mg PO QHS warfarin 2.5 mg tablet 5 mg PO ONCE PRN (Reason: Check with primary doctor) Patient Comments: 06/16/[address] Cornejo office: . nitroglycerin 0.4 mg Tablet, Sublingual 0.4 mg sublingual Q5M PRN (Reason: Cardiac/Chest Pain) 30 Days Qty: 30 0RF acetaminophen 500 mg tablet 500 mg PO Q4H PRN (Reason: pain) furosemide 40 mg Tablet 40 mg PO BIDLX 30 Days Qty: 60 0RF pantoprazole 40 MG tablet 40 mg PO DAILY Qty: 7 0RF Patient Comments: stomach pravastatin 80 mg tablet 80 mg PO QHS amiodarone 200 mg tablet 100 mg PO DAILY Qty: 45 3RF amlodipine 2.5 mg tablet 2.5 mg PO DAILY Qty: 90 3RF loratadine 10 mg tablet 10 mg PO DAILY Qty: 90 3RF ezetimibe 10 mg tablet See Rx Instructions .ROUTE .COMPLEX Qty: 90 3RF Dose Instruction: TAKE 1 TABLET BY MOUTH DAILY Rx Instructions: TAKE 1 TABLET BY MOUTH DAILY albuterol sulfate 2.5 mg /3 mL (0.083 %) solution for nebulization 2.5 mg inhalation BID Qty: 60 11RF aspirin 81 mg tablet,delayed release (DR/EC) 81 mg PO BREAKFAST metoprolol succinate 50 mg tablet extended release 24 hr 50 mg PO DAILY Qty: 90 3RF Primary Care Provider: Harley Cornejo Referrals: Adiel Johnson DO [Med Staff - Active Staff, Orthopedics] Harley Cornejo MD [Primary Care Provider, Medical] Activity Restrictions/Additional Instructions: Continue follow-up with hospice. Take the morphine sulfate as prescribed as needed for pain. She can take 0.25 mL every 4 hours. If she has further issues with pain control please contact hospice for further recommendations. Wear sling as needed for comfort. I have given information for orthopedics to follow-up with. Print Language: [place] Disposition Disposition: Home, Self Care
[2025-05-05 14:00] VITALS: BP 112/70; PULSE 111; RESP 18; O2SAT 98
--- NOTE | 2025-05-05 14:27 | RAD_ITS ---
PROCEDURE: HUMERUS MIN 2 VIEWS 05/05/2025 REASON FOR EXAM: INJURY/PAIN TECHNIQUE: Procedure Code: RADHUM Modality: DX Procedure: HUMERUS MIN 2 VIEWS Laterality: Left humerus. COMPARISON: None FINDINGS: Bones: Nondisplaced transverse fracture of the surgical neck of the proximal humerus with extension to the greater tuberosity. Joints: Normal alignment at the shoulder and elbow. Soft tissues: Soft tissue swelling. Other: RAD/Humerus min 2 Views IMPRESSION: Nondisplaced transverse fracture through the surgical neck of the proximal left humerus with extension to the greater tuberosity. Soft tissue swelling. Reading Location: [facility]
--- NOTE | 2025-05-05 14:27 | RAD_ITS ---
PROCEDURE: ELBOW MIN 3 VIEWS 05/05/2025 REASON FOR EXAM: INJURY/PAIN TECHNIQUE: Procedure Code: RADEL Modality: DX Procedure: ELBOW MIN 3 VIEWS Laterality: Left elbow COMPARISON: None FINDINGS: Bones: No fracture seen. Joints: Normal alignment. Soft tissues: Soft tissues are unremarkable. Other: RAD/Elbow min 3 Views IMPRESSION: No acute abnormality is seen. Reading Location: [facility]
[2025-05-05 15:00] VITALS: BP 88/63; PULSE 103; RESP 16; O2SAT 100
[2025-05-05 15:30] VITALS: BP 99/66; PULSE 109; RESP 18; TEMP 37; O2SAT 100
== END 2025-05-05 16:09 | disposition home or self-care (01) ==
PROVIDERS: Emergency Provider Emergency Medicine; PCP Family Medicine; Visit Provider Emergency Medicine
DX: S42.215A Unspecified nondisplaced fracture of surgical neck of left humerus, initial encounter for closed fracture (principal); J96.11 Chronic respiratory failure with hypoxia; I13.0 Hypertensive heart and chronic kidney disease with heart failure and stage 1 through stage 4 chronic kidney disease, or unspecified chronic kidney disease; I50.32 Chronic diastolic (congestive) heart failure; G31.83 Neurocognitive disorder with Lewy bodies; F02.80 Dementia in other diseases classified elsewhere, unspecified severity, without behavioral disturbance, psychotic disturbance, mood disturbance, and anxiety; J44.9 Chronic obstructive pulmonary disease, unspecified; Z51.5 Encounter for palliative care; E78.5 Hyperlipidemia, unspecified; Z79.01 Long term (current) use of anticoagulants; N18.2 Chronic kidney disease, stage 2 (mild); I25.10 Atherosclerotic heart disease of native coronary artery without angina pectoris; Z95.2 Presence of prosthetic heart valve; Z90.710 Acquired absence of both cervix and uterus; Z99.81 Dependence on supplemental oxygen; R29.6 Repeated falls; W19.XXXA Unspecified fall, initial encounter
CPT/HCPCS: 70450; 73060; 73080; 99284